=== PATIENT | female | born 1940 | race Caucasian/White ===

== ENCOUNTER 2022-10-15 01:39 | Outpatient (REF) | payer MEDICARE, SELFPAY ==
[2022-10-15 09:16] LABS: Bilirubin Urine NEGATIVE (NEGATIVE); Blood Urine NEGATIVE (NEGATIVE); Clarity Urine CLEAR (CLEAR); Color Urine YELLOW (YELLOW); Glucose Urine UA NEGATIVE (NEGATIVE); Ketones Urine NEGATIVE (NEGATIVE); Leukocyte Esterase Urine NEGATIVE (NEGATIVE); Nitrite Urine NEGATIVE (NEGATIVE); Protein Urine NEGATIVE (NEG/TRACE); Urobilinogen Urine 0.2 EU/dL (0.2-1.0); pH Urine 5.5 (5.0-9.0)
[2022-10-15 09:34] LABS: Bacteria Urine NONE SEEN #/HPF (NONE SEEN); Mucus Urine NONE SEEN (NONE SEEN); RBC Urine NONE SEEN #/HPF (0-2); Squamous Epithelial Cell Urine FEW #/LPF (NONE/RARE); WBC Urine NONE SEEN #/HPF (NONE SEEN)
[2022-10-15 09:35] LABS: Calcium Oxalate Crystals Urine MANY; Crystals Seen? Seen #/HPF (None Seen)
== END 2022-10-15 01:40 | disposition home or self-care (01) ==
LOC: LAB 01:39
PROVIDERS: PCP Internal Medicine; Visit Provider Internal Medicine
DX: N39.0 Urinary tract infection, site not specified (principal)
CPT/HCPCS: 81001

== ENCOUNTER 2022-12-29 01:36 | Outpatient (REF) | payer MEDICARE, SELFPAY ==
[2022-12-29 10:09] LABS: Basophils Percent Auto 0.5 % (0.2-2.0); Eosinophils Absolute Auto 0.3 10^3/uL (0.0-0.7); Eosinophils Percent Auto 5.8 % (0.9-7.0); Hematocrit 37.9 % (36.0-48.0); Hemoglobin 11.3 g/dL (12.0-16.0); Immature Granulocytes Abs Auto 0.01 10^3/uL (0.00-0.03); Immature Granulocytes Pct Auto 0.2 % (0.0-0.5); Lymphocytes Percent Auto 34.3 % (20.5-60.0); Mean Corpuscular HGB Conc 29.8 g/dL (29.9-35.2); Mean Corpuscular Hemoglobin 28.5 pg (26.7-34.0); Mean Corpuscular Volume 95.7 fL (81.0-99.0); Mean Platelet Volume 10.1 fL (9.5-13.5); Monocytes Absolute Auto 0.6 10^3/uL (0.3-0.8); Monocytes Percent Auto 9.7 % (1.7-12.0); Neutrophils Absolute Auto 2.9 10^3/uL (1.4-6.5); Neutrophils Percent Auto 49.5 % (43.0-75.0); Platelet Count 205 10^3/uL (150-450); Red Blood Count 3.96 10^6/uL (4.20-5.40); Red Cell Distribution Width 15.7 % (11.0-15.0); White Blood Count 5.9 10^3/uL (4.0-11.0)
[2022-12-29 10:51] LABS: Cholesterol 149 mg/dL (<=200); HDL Cholesterol 74 mg/dL (40-60); Thyroid Stimulating Hormone 0.432 uIU/mL (0.358-3.740); Triglycerides 45 mg/dL (<=150)
[2022-12-29 10:51] LABS: Creatinine Urine Random 76.15 mg/dL (20.00-300.00); Microalbum Creatinine Ratio Ur 28.8 mg/g (0.0-29.9); Microalbumin Urine Random 2.2 mg/dL (<=30.0)
[2022-12-29 11:58] LABS: Estimated Average Glucose 146 mg/dL; Glycohemoglobin A1C 6.7 % (4.5-6.2)
== END 2022-12-29 01:37 | disposition home or self-care (01) ==
LOC: LAB 01:36
PROVIDERS: PCP Internal Medicine; Visit Provider Internal Medicine
DX: E03.9 Hypothyroidism, unspecified (principal); N39.0 Urinary tract infection, site not specified; I25.10 Atherosclerotic heart disease of native coronary artery without angina pectoris; R79.89 Other specified abnormal findings of blood chemistry; E11.69 Type 2 diabetes mellitus with other specified complication
CPT/HCPCS: 36415; 80061; 82043; 82172; 82570; 82607; 83036; 84443; 85025

== ENCOUNTER 2023-03-21 03:16 | Outpatient (REF) | payer MEDICARE, SELFPAY ==
--- OUTSIDE RECORDS SUMMARY | 2023-03-21 03:23 | XMS_ITS | CCD ---
Author Name Unknown Address [address] [place] [address] Organization [facility] Care Team Providers Care Pharmaceutical Service Representative Name Role Phone Honey Rabago Primary Care Provider [phone] Honey Rabago Attending Provider Anu Alva Unavailable Honey Rabago DO Primary Care Provider Honey Rabago DO Primary Care Provider Oswaldo Almonte Unavailable DO Honey Rabago Primary Care Provider [phone] DO Sumanth Lowe Emergency Provider [phone] DO Holger Dorado Emergency Provider DO Honey Rabago Attending Provider [phone] DO Marvin Peter Emergency Provider MD Enrrique Mota Admit Provider [phone] MD Jairo Benson Other Provider [phone] MD Oswaldo Almonte Other Provider MD Gaye Claire Attending Provider MD Alcides Moya Admit Provider MD Alcides Moya Attending Provider [phone] KORTNEY Mehta Other Provider Unavailable KORTNEY Hannah Other Provider Unavailable KORTNEY Dutton Other Provider Unavailable KORTNEY Garrett Other Provider Unavailable KORTNEY Smith Other Provider Unavailable KORTNEY Ayon Other Provider Unavailable MD Familia Villatoro Other Provider MD Misha Ziegler Other Provider HEIDI Coronado M Other Provider DO José Miguel Tellez Other Provider MD George Chan Other Provider DO Justice De Oliveira Other Provider MD Enrrique Mota Other Provider MD Rosa Maria Odell Other Provider Angeli, ANP-BC Tonya Other Provider MD Juan Wallace Other Provider MD Jerson Walker Other Provider MD Gaye Claire Other Provider MD Queta Mclain Other Provider MD Rd Blackmon Other Provider MD Anibal Gallagher Other Provider MD Damion Thapa Other Provider Cortney, INFO ANALYST-C Faustina Quiroga Other Provider MD Valente Lauren Other Provider MD Mikhail Kareem Other Provider MD Italia Colbert Other Provider MD Ronan Davidson Other Provider DO Shantel Nayak Other Provider Al MD Kaylie Ly Other Provider DO Michael Del Rio Other Provider DO Sony Canela Other Provider HEIDI Jaimes Other Provider DO Lázaro Pratt Other Provider MD Corona Weathers Other Provider KORTNEY Terry Other Provider Unavailable DO Honey Rabago Primary Care Provider DO Marvin Peter Emergency Provider MD Enrrique Mota Admit Provider [phone] MD Jairo Benson Other Provider MD Oswaldo Almonte Other Provider MD Gaye Claire Attending Provider MD Alcides Moya Admit Provider MD Alcides Moya Attending Provider KORTNEY Mehta Other Provider Unavailable KORTNEY Hannah Other Provider Unavailable KORTNEY Dutton Other Provider Unavailable KORTNEY Garrett Other Provider Unavailable KORTNEY Smith Other Provider Unavailable KORTNEY Ayon Other Provider Unavailable MD Familia Villatoro Other Provider MD Misha Ziegler Other Provider Dials, PANMAN Chery M Other Provider [phone] DO José Miguel Tellez Other Provider MD George Chan Other Provider DO Justice De Oliveira Other Provider MD Enrrique Mota Other Provider MD Rosa Maria Odell Other Provider Angeli ANP-BC Tonya Other Provider [phone] MD Juan Wallace Other Provider [phone] MD Jerson Walker Other Provider MD Gaye Claire Other Provider MD Queta Mclain Other Provider MD Rd Blackmon Other Provider MD Anibal Gallagher Other Provider MD Damion Thapa Other Provider KAYODE Barr Other Provider [phone] MD Valente Lauren Other Provider MD Kareem Elizondo Other Provider MD Italia Colbert Other Provider MD Ronan Davidson Other Provider DO Shantel Nayak Other Provider Al MD Kaylie Ly Other Provider DO Michael Del Rio Other Provider DO Sony Canela Other Provider HEIDI Jaimes Other Provider DO Lázaro Pratt Other Provider MD Corona Weathers Other Provider KORTNEY Terry Other Provider Unavailable DO Honey Rabago Attending Provider [phone] Honey Rabago DO Primary Care Provider DO Honey Rabago Primary Care Provider DO Honey Rabago Attending Provider Honey Rabago Attending Unavailable Honey Rabago Admitting Unavailable Honey Rabago Primary Care Unavailable Honey Rabago Primary Care Unavailable Jairo Benson Consulting Unavailable Gaye Claire Attending Unavailable Enrrique Mota Admitting Unavailable Oswaldo Almonte Consulting Unavailable Alcides Moya Admitting Unavailable Alcides Moya Attending Unavailable Honey Rabago Primary Care Unavailable Maggy Mehta Consulting Unavailable Sasha Hannah Consulting Unavailable Nadia Dutton Consulting Unavailable Anuradha Garrett Consulting Unavailable Karen Smith Consulting Unavailable Erika Ayon Consulting Unavailable MassFamilia cole Consulting Unavailable Toney, Misha K Consulting Unavailable Dialchyna Chery M Consulting Unavailable José Miguel Tellez Consulting Unavailable Rocio, George Consulting Unavailable Justice De Oliveira Consulting UnavailEnrrique Her Consulting Unavailable Semagómez, Rosa Maria Consulting Unavailable Tonya Suh Consulting Unavailable Juan Wallace Consulting Unavailable Jerson Walker Consulting Unavailable Gaye Claire Consulting Unavailable Queta Mclain Consulting Unavailable Rd Blackmon Consulting Unavailable Anibal Gallagher Consulting Unavailable Damion Thapa Consulting Unavailable Faustina Barr Consulting Unavailable DoValente colindres Consulting Unavailab Kareem Estrella Consulting Unavailable Italia Colbert Consulting Unavailable Lety Ronan Consulting Unavailable Shantel Nayak Consulting Unavailable Kaylie Guthrie Consulting Unavailab Michael Hearn Consulting Unavailable MiniaciSony Consulting Unavailable ObikaAmanda Consulting Unavailable Lázaro Pratt Consulting Unavailable DaromarCorona Consulting Unavailable Lee Ann Terry Consulting Unavailable Holger Dorado Admitting Unavailable Vaschak, Honey Primary Care Unavailable Holger Dorado Attending Unavailable Sumanth Lowe Admitting Unavailable Vaschak, Honey Primary Care Unavailable Sumanth Lowe Attending Unavailable Vaschak, Honey Primary Care Unavailable Vaschak, Honey Attending Unavailable Vaschak, Honey Admitting Unavailable Vaschak, Honey Attending Unavailable Vaschak, Honey Admitting Unavailable Vaschak, Honey Primary Care Unavailable VASCHAK, DR MÉNDEZ Admitting Unavailable VASCHAK, DR MÉNDEZ Attending Unavailable VASCHAK, DR MÉNDEZ Consulting Unavailable VASCHAK, DR MÉNDEZ Admitting Unavailable VASCHAK, DR MÉNDEZ Attending Unavailable VASCHAK, DR MÉNDEZ Consulting Unavailable VASCHAK, DR MÉNDEZ Consulting Unavailable VASCHAK, DR MÉNDEZ Admitting Unavailable VASCHAK, DR MÉNDEZ Attending Unavailable VASCHAK, DR MÉNDEZ Attending Unavailable VASCHAK, DR MÉNDEZ Consulting Unavailable VASCHAK, DR MÉNDEZ Admitting Unavailable VASCHAK, DR MÉNDEZ Attending Unavailable VASCHAK, DR MÉNDEZ Consulting Unavailable VASCHAK, DR MÉNDEZ Admitting Unavailable VASCHAK, DR MÉNDEZ Attending Unavailable VASCHAK, DR MÉNDEZ Consulting Unavailable VASCHAK, DR MÉNDEZ Admitting Unavailable VASCHAK, DR MÉNDEZ Admitting Unavailable VASCHAK, DR MÉNDEZ Attending Unavailable VASCHAK, DR MÉNDEZ Consulting Unavailable VASCHAK, DR MÉNDEZ Attending Unavailable VASCHAK, DR MÉNDEZ Admitting Unavailable VASCHAK, DR MÉNDEZ Consulting Unavailable URBANO BENNETT Attending Unavailable HONEY RABAGO Primary Care Unavailab GLORIA Villeda Referring Unavailable GLORIA PEREZ Attending Unavailable HONEY RABAGO Primary Care Unavailab GLORIA Villeda Attending Unavailable Allergies Allergy Classification Reported Allergen(s) Allergy Type Date of Onset Reaction(s) Facility Aminoketones (1 source) buPROPion Drug Allergy 08-01-[address] [facility] Latex (1 source) Latex Substance Allergy 08-01-[address] [facility] Opioid Agonists (1 source) HYDROcodone Drug Allergy 08-01-19 Unknown Reaction [facility] (20 sources) Acetaminophen / HYDROcodone; Translations: [Vicodin] Drug Allergy Unknown [facility] (20 sources) buPROPion; Translations: [BUPROPION] Drug Allergy 01-19-20 Mental Status Change [facility] Work Phone: (20 sources) Latex Propensity to adverse reactions 11-05-19 Unknown, Rash [facility] (10 sources) Acetaminophen / HYDROcodone; Translations: [HYDROCODONE-ACET AMINOPHEN] Drug Allergy 04-13-19 Mental Status Change [facility] (10 sources) Adhesive Tape; Translations: [ADHESIVE TAPE (ROSINS)] Allergy to substance 01-13-20 [facility] Work Phone: (10 sources) Latex; Translations: [LATEX, NATURAL RUBBER] Drug Allergy 04-13-19 [facility] (10 sources) rosuvastatin; Translations: [ROSUVASTATIN CALCIUM] Drug Allergy 01-13-20 Unknown [facility] Work Phone: (6 sources) HYDROcodone; Translations: [hydrocodone] Drug Allergy 11-05-19 Unknown Reaction [facility] (1 source) buPROPion Drug Allergy 11-05-19 [facility] (1 source) Latex Drug allergy (disorder) 11-05-19 [facility] (1 source) natural latex rubber Drug allergy (disorder) [facility] Medications Current Medications Medication Drug Class(es) Dates Sig (Normalized) Sig (Original) acetaminophen 500 mg oral tablet (20 sources) Start: 11-11-2021 End: 11-25-2021 take 1000 mg by mouth three times daily Acetaminophen Active 1000 MG PO Three times daily November 23, 2021 11:00pm Start: 11-11-2021 take 1000 mg by mout h three times daily Acetaminophen Active 1000 MG PO Three times daily November 11, 2021 1:48pm Start: 11-11-2021 take 1000 mg by mout h three times daily Acetaminophen Active 1000 MG PO Three times daily November 11, 2021 1:48pm Start: 11-10-2021 End: 11-11-2021 take 1000 mg by mouth three times daily Acetaminophen Discontinued 1000 MG PO Three times daily 0 November 09, 2021 11:00pm November 11, 2021 12:48pm Start: 11-04-2021 End: 11-11-2021 take 650 mg by mouth three times daily Acetaminophen Discontinued 650 MG PO Three times daily November 03, 2021 11:00pm November 11, 2021 11:27am take 1 tablet by rc th every eight hours as needed acetaminophen (TYLENOL) 500 mg tablet Take 500 mg by mouth every 8 hours as needed. 01/18/2023: Pt takes 2 tabs daily per [facility] list 0 Active take 1 tablet by rc th every six hours as needed Acetaminophen 500 MG 1 tablet as needed Orally every 6 hrs Active Comment on above: Take 500 mg by mouth every 8 hours as needed. 01/18/2023: Pt takes 2 tabs daily per [facility] Aspir-81 (16 sources) Aspir-81 Active atorvastatin 40 mg oral tablet (20 sources) HMG-CoA Reductase Inhibitor Start: 11-04-2021 End: 11-25-2021 take 40 mg by mouth once daily at bedtime Atorvastatin Active 40 MG PO Daily at bedtime November 23, 2021 11:00pm Start: 11-04-2021 take 40 mg by mouth once daily at bedtime Atorvastatin Active 40 MG PO Daily at bedtime November 04, 2021 12:00am Start: 04-22-2020 End: 09-29-2021 take 1 tablet by mouth once daily atorvastatin (LIPITOR) 40 mg tablet TAKE 1 TABLET BY MOUTH ONCE DAILY FOR 90 DAYS 0 04/22/2020 09/29/2021 Discontinued Comment on above: Take 40 mg by mouth once daily. TAKE 1 TABLET BY RC TH ONCE DAILY FOR 90 DAYS cholecalciferol 0.125 mg oral capsule (20 sources) Vitamin D Start: take 125 ug by mouth once daily Cholecalciferol (Vitamin D3) Active 125 MCG PO Daily November 23, 2021 11:00pm Start: 11-04-2021 End: 11-25-2021 take 1 tablet by mouth once daily in the morning Cholecalciferol (Vitamin D3) (Vitamin D3) 125 mcg (5,000 unit) Tablet Discontinued 125 MCG PO Every morning November 03, 2021 11:00pm November 25, 2021 3:32pm Start: 11-04-2021 take 1 tablet by rc once daily in the morning Cholecalciferol (Vitamin D3) (Vitamin D3) 125 mcg (5,000 unit) Tablet Active 125 MCG PO Every morning November 04, 2021 12:00am cholecalciferol (VITAMIN D3) 5,000 unit tab Take by mouth once daily. 0 Active take 1 capsule by [facility] once daily Cholecalciferol 125 MCG (5000 UT) 1 capsule Orally Once a day Active Cholecalciferol, Vitamin D3, 1,000 unit cap Take by mouth once daily. 0 Active Comment on above: Take by mouth once d aily. lidocaine 0.04 mg/mg medicated patch (16 sources) Antiarrhythmic, Amide Local Anesthetic Start: 11-11-2021 End: 11-25-2021 apply 1 dose topically once daily in the morning Lidocaine (Lidocaine Pain Relief) 4 % Adhesive Patch,Medicated Active 1 PATCH TOPICAL Every morning November 23, 2021 11:00pm Start: 11-11-2021 apply 1 dose topical ly once daily in the morning Lidocaine (Lidocaine Pain Relief) 4 % adhesive patch,medicated Active 1 PATCH TOPICAL Every morning November 11, 2021 1:51pm Start: 11-11-2021 apply 1 dose topical ly once daily in the morning Lidocaine (Lidocaine Pain Relief) 4 % adhesive patch,medicated Active 1 PATCH TOPICAL Every morning November 11, 2021 1:51pm Start: 11-10-2021 End: 11-11-2021 apply 1 dose topically once daily Lidocaine (Lidocaine Pain Relief) 4 % Adhesive Patch,Medicated Discontinued 1 PATCH TOPICAL Daily 0 November 09, 2021 11:00pm November 11, 2021 12:51pm oxyCODONE hydrochloride 5 mg oral tablet (13 sources) Opioid Agonist Start: 11-10-2021 End: 11-25-2021 take 5 mg by mouth every six hours Oxycodone Active 5 MG PO Every 6 hours 10 November 24, 2021 Start: 11-10-2021 take 5 mg by mouth e very six hours Oxycodone Active 5 MG PO Every 6 hours 0 November 10, 2021 Start: 11-10-2021 take 5 mg by mouth e very six hours Oxycodone Active 5 MG PO Every 6 hours 0 November 10, 2021 Start: 10-19-2021 End: 11-04-2021 take 1 tablet by mouth three times daily Oxycodone (Roxicodone) 5 mg tablet Discontinued 5 MG PO Three times daily 7 October 19, 2021 November 04, 2021 5:03pm polyethylene glycol 3350 55003 mg powder for oral solution (15 sources) Osmotic Laxative Start: 11-10-2021 End: 11-25-2021 Polyethylene Glycol 3350 (Miralax) 17 gram Powder In Packet Active 17 GM PO Twice daily 04 12November 23, 2021 11:00pm Start: 11-10-2021 Polyethylene G lycol 3350 (Miralax) 17 gram Powder In Packet Active 17 GM PO Twice daily 0 November 10, 2021 12:00am Start: 11-10-2021 Polyethylene G lycol 3350 (Miralax) 17 gram Powder In Packet Active 17 GM PO Twice daily 0 November 10, 2021 12:00am End: 02-15-2022 polyethylene glycol 3350 17 gram packet Take 17 g by mouth once daily. Dissolve dose in 4 - 8 ounces of liquid and take as directed. 0 Active Comment on above: Take 17 g by mouth o nce daily. Take 17 g by mouth o nce daily. Dissolve dose in 4 - 8 ounces of liquid and take as directed. Polyethylene Glycol 3350 17 Grams (20 sources) Start: 01-10-2017 Polyethylene Glycol 3350 17 Grams as directed Orally Twice a day for 1 days Dec, Active Start: 01-10-2017 Polyethylene G lycol 3350 17 Grams as directed Orally Once a day for 1 days Dec, Not-Taking Start: 01-10-2017 Start: 01-10-2017 take 119 g by mouth twice daily Polyethylene Glycol 3350 17 Grams take 119 grams into each gatorade/pedilyte bottle Orally bid for 1 days Dec, Active PreserVision/Lutein (16 sources) PreserVision/Lut ein as directed Orally Active Vitamin B12 1000 MCG (5 sources) take 1 tablet by rc th once daily Vitamin B12 1000 MCG 1 tablet Orally Once a day Active Vitamin D 2000 UNIT (16 sources) take 1 tablet by mouth once gautam y Vitamin D 2000 UNIT 1 tablet Orally Once a day Active Vitamin D 25 MCG (1000 UT) (2 sources) take 1 tablet by rc th once daily Vitamin D 25 MCG (1000 UT) 1 tablet Orally Once a day Active Completed/Discontinued Medications Medication Drug Class(es) Dates Sig (Normalized) Sig (Original) ascorbic acid 226 mg / cuprous oxide 0.8 mg / dl-alpha tocopheryl acetate 200 unt / lutein 5 mg / zinc oxide 34.8 mg oral capsule (8 sources) Vitamin C Start: 02-22-2017 End: 07-10-2017 Vit J-O-Wfookb-Zinc-Lute in (Preservision Lutein) 226 mg-200 unit -5 mg-0.8 mg Capsule Discontinued 1 TAB PO As Directed February 22, 2017 12:00am July 10, 2017 5:45pm take 2 capsules by m out every twenty-four hours PreserVision/Lutein - 2 capsules Orally daily Active aspirin 81 mg delayed release oral tablet (7 sources) Platelet Aggregation Inhibitor, Nonsteroidal Anti-inflammatory Drug Start: 01-18-2017 End: 11-04-2021 take 1 tablet by mouth once daily Aspirin (Aspir-81) 81 mg Tablet,Delayed Release (Dr/Ec) Discontinued 81 MG PO Daily January 18, 2017 12:00am November 04, 2021 4:58pm Comment on above: Take 81 mg by mouth once daily. biotin 1 mg chewable tablet (20 sources) Start: 01-18-2017 End: 11-04-2021 take 1000 ug by mouth once daily Biotin Discontinued 1000 MCG PO Daily January 18, 2017 12:00am November 04, 2021 4:59pm take 1 tablet by rc th once daily Biotin 10 MG 1 tablet Orally Once a day for 30 day(s) Not-Taking End: 09-29-2021 take 5 mg by mouth once daily biotin 5 mg caspule Take 5 mg by mouth once daily. 0 09/29/2021 Discontinued Comment on above: Take 5 mg by mouth o nce daily. carbidopa 25 mg / levodopa 100 mg oral tablet (20 sources) Aromatic Amino Acid Decarboxylation Inhibitor, Aromatic Amino Acid Start: 11-05-19 End: 04-13-19 take 1.5 tablets by mouth three times daily carbidopa-levodopa (SINEMET 25-100) 25-100 mg per tablet Indications: Parkinson's disease Take 1.5 tablets by mouth three times daily. 405 tablet 3 04/13/2022 02/11/2023 Discontinued Start: 11-04-2021 take 1.5 tablets by mouth three times daily Carbidopa-Levodopa Active 1.5 TAB PO Three times daily November 04, 2021 12:00am Start: 02-03-2021 End: 04-13-2022 take 1.5 tablets by mouth three times daily carbidopa-levodopa (SINEMET 25-100) 25-100 mg per tablet Indications: Parkinson's disease (HCC) Take 1.5 tablets by mouth three times daily. 405 tablet 3 02/03/2021 04/13/2022 Discontinued take 1 tablet by rc th every eight hours Sinemet 10-100 MG 1 tablet Orally Three times a day Active take 1 tablet by rc th every eight hours Comment on above: Take 1.5 tablets by mouth three times daily. cefdinir 300 mg oral capsule (5 sources) Cephalosporin Antibacterial Start: End: take 300 mg by mouth twice daily Cefdinir Discontinued 300 MG PO Twice daily 4 2 November 10, 2021 11:00pm November 25, 2021 3:31pm Start: 11-11-2021 take 300 mg by mouth twice reymundo ly Cefdinir Active 300 MG PO Twice daily 4 November 11, 2021 12:00am Start: 11-11-2021 take 300 mg by mouth twice reymundo ly Cefdinir Active 300 MG PO Twice daily 4 November 11, 2021 12:00am cephalexin 500 mg oral capsule (9 sources) Cephalosporin Antibacterial Start: 09-28-2021 End: 11-04-2021 take 500 mg by mouth every eight hours Cephalexin Discontinued 500 MG PO Q8H 21 September 27, 2021 11:00pm November 04, 2021 5:00pm End: 02-15-2022 cephALEXin (KEFLEX) 500 mg c apsule Take 500 mg by mouth. 1 cap x2 daily for 5 days 0 02/15/2022 Discontinued (Course of therapy completed) Comment on above: Take 500 mg by mouth . 1 cap x2 daily for 5 days cyclobenzaprine hydrochloride 5 mg oral tablet (10 sources) Muscle Relaxant Start: 10-20-19 End: 11-05-19 take 5 mg by mouth three times daily Cyclobenzaprine Discontinued 5 MG PO Three times daily October 18, 2021 11:00pm November 04, 2021 5:00pm take 1 tablet by mouth every twe nty-four hours diclofenac sodium 0.01 mg/mg topical gel (9 sources) Nonsteroidal Anti-inflammatory Drug Start: 05-08-2022 diclofenac (VOLTAREN) 1 % topical gel End: 01-20-2023 diclofenac sodium 10% topica l gel (CPD) Apply to affected area. 0 01/20/2023 Discontinued diclofenac sodiu m 10% topical gel (CPD) Apply to affected area. 0 Active End: 02-15-2022 DICLOFENAC SODIUM TOPICAL Ap ply to affected area as needed. 0 02/15/2022 Discontinued (Course of therapy completed) DICLOFENAC SODIU M TOPICAL Apply to affected area as needed. 0 Active Comment on above: Apply to affected ar ea as needed. Apply to affected ar ea. docusate sodium 50 mg / sennosides, nursing home 8.6 mg oral tablet (5 sources) Start: 11-10-2021 End: 11-25-2021 take 2 tablets by mouth twice daily Sennosides-Docusate Sodium (Stool Softener-Stimulant Laxat) 8.6-50 mg Tablet Discontinued 2 TAB PO Twice daily 0 November 09, 2021 11:00pm November 25, 2021 3:31pm Start: 11-10-2021 take 2 tablets by mo [facility] twice daily Sennosides-Docusate Sodium (Stool Softener-Stimulant Laxat) 8.6-50 mg Tablet Active 2 TAB PO Twice daily 0 November 10, 2021 12:00am Start: 11-10-2021 take 2 tablets by mo neh twice daily Sennosides-Docusate Sodium (Stool Softener-Stimulant Laxat) 8.6-50 mg Tablet Active 2 TAB PO Twice daily 0 November 10, 2021 12:00am estradiol 0.1 mg/ml vaginal cream (2 sources) Estrogen estradiol (ESTRA CE) 0.01 % (0.1 mg/gram) vaginal cream Use vaginally one time a week. 0 Active Comment on above: Use vaginally one ti me a week. ezetimibe 10 mg oral tablet (20 sources) Dietary Cholesterol Absorption Inhibitor Start: 02-23-20 17 End: 07-11-19 18 take 1 tablet by mouth once daily Ezetimibe (Zetia) 10 mg Tablet Discontinued 10 MG PO Daily February 22, 2017 12:00am July 10, 2017 5:44pm fluocinolone acetonide 0.1 mg/ml topical oil (3 sources) Corticosteroid Fluocinolone-Elissa wer Cap 0.01 % oil by scalp route. 0 Active Comment on above: by scalp route. FREESTYLE VIVIAN 2 SENSOR kit (6 sources) Start: 01-26-20 FREESTYLE VIVIAN 2 SENSOR kit apply 1 SENSOR to back OF UPPER ARM REMOVE AND REPLACE every 14 days 0 01/25/2022 Active Comment on above: apply 1 SENSOR to ba ck OF UPPER ARM REMOVE AND REPLACE every 14 days furosemide 20 mg oral tablet (20 sources) Loop Diuretic Start: 03-01-20 End: 02-16-20 take 1 tablet by mouth once daily furosemide (LASIX) 20 mg tablet Take 1 tablet by mouth once daily. 0 03/01/2019 02/15/2022 Discontinued (Discontinued by another Health Care Provider) Furosemide Activ e Comment on above: [facility]. gabapentin 300 mg oral capsule (7 sources) Anti-epileptic Agent Start: 01-26-2022 End: 01-20-2023 take 1 capsule by mouth once daily at bedtime gabapentin (NEURONTIN) 300 mg capsule Take 300 mg by mouth daily at bedtime. 0 01/26/2022 01/20/2023 Discontinued (Course of therapy completed) take 1 capsule by mo [facility] every twenty-four hours Gabapentin 300 MG 1 capsule Orally Once a day Active Comment on above: Take 300 mg by mouth daily at bedtime. ketoconazole 20 mg/ml medicated shampoo (7 sources) Azole Antifungal End: 02-15-2022 ketoconazole (NIZORAL) 2 % shampoo Apply to affected area two times a week. 0 Active Comment on above: Apply 1 application to affected area as directed. Apply to affected ar ea two times a week. Lactobacillus acidophilus (4 sources) End: 02-15-2022 Lactobacillus acidophilus (PROBIOTIC ORAL) Take by mouth. 0 02/15/2022 Discontinued (Course of therapy completed) Lactobacillus ac idophilus (PROBIOTIC ORAL) Take by mouth. 0 Active Comment on above: Take by mouth. levothyroxine sodium 0.075 mg oral tablet (20 sources) l-Thyroxine Start: 01-18-2017 End: 11-25-2021 levothyroxine (SYNTHROID) 75 mcg tablet once daily. 0 12/29/2017 Active Synthroid 75 MCG 1 tablet every morning on an empty stomach Orally Once a day for 30 day(s) Active Comment on above: once daily. MEDICATION, NON-DATABASE (2 sources) MEDICATION, NON-DATABASE 750 mg two times a day. Antiacid extra strength 0 Active Comment on above: 750 mg two times a d ay. Antiacid extra strength metFORMIN hydrochloride 500 mg oral tablet (20 sources) Biguanide Start: 02-12-2022 take 1 tablet by mouth once daily metFORMIN (GLUCOPHAGE) 500 mg tablet Take 1 tablet by mouth once daily. 0 02/12/2022 Active Start: 01-18-2017 take 50 mg by mouth twice gautam y Metformin Active 50 MG PO Twice daily January 18, 2017 7:43am Start: 01-18-2017 End: 11-25-2021 take 1000 mg by mouth twice daily at mealtime Metformin Active 1000 MG PO Twice daily with meals 120 30 November 23, 2021 11:00pm take 1 tablet by rc th every twelve hours metFORMIN HCl 500 MG 1 tablet with a meal Orally Twice a day Active take 2 tablets by mo [facility] every twelve hours metFORMIN HCl 500 MG 2 tablets Orally Twice a day Active Comment on above: Take 500 mg by mouth twice daily with meals. Pt takes 2,000 mg daily Take 1 tablet by rc th once daily. metoprolol tartrate 50 mg oral tablet (20 sources) beta-Adrenergic Migdalia Start: 01-13-2022 take 1 tablet by mouth twice daily at mealtime metoprolol tartrate, short acting, (LOPRESSOR) 50 mg tablet TAKE 1 & 1/2 (ONE & ONE-HALF) TABLETS BY MOUTH TWICE DAILY WITH FOOD 0 01/13/2022 Active Start: 11-24-2021 take 75 mg by mouth twice gautam y Metoprolol Tartrate Active 75 MG PO Twice daily 120 30 November 23, 2021 11:00pm Start: 01-18-2017 metoprolol tar trate, short acting, (LOPRESSOR) 50 mg tablet twice daily. 1.5 tablets 2x daily 0 01/05/2018 Active Start: 01-18-2017 End: 11-25-2021 take 75 mg by mouth twice daily Metoprolol Tartrate Di scontinued 75 MG PO Twice daily January 18, 2017 12:00am November 25, 2021 3:31pm take 1 tablet by rc th twice daily metoprolol tartrate, short acting, (LOPRESSOR) 25 mg tablet Take 25 mg by mouth twice daily. 0 Active take 2 tablets by mo uth every twelve hours Metoprolol Tartrate 37.5 MG 2 tablets Orally Twice a day increased for Essential Tremors Active take 1.5 tablets by mouth every twelve hours Metoprolol Tartrate 50 MG 1.5 tablets Orally Twice a day increased for Essential Tremors Active take 1 tablet by rc th twice daily in the evening Metoprolol Tartrate 100 MG in am/ 50mg in pm 1 tablet Orally Twice a day increased for Essential Tremors Active Comment on above: twice daily. 1.5 tab lets 2x daily TAKE 1 & 1/2 (ONE & ONE-HALF) TABLETS BY MOUTH TWICE DAILY WITH FOOD Take 25 mg by mouth twice daily. mirtazapine 7.5 mg oral tablet (17 sources) Start: 01-25-2022 take 1 tablet by mouth once daily at bedtime Mirtazapine (REMERON) 7.5 mg tablet Take 7.5 mg by mouth daily at bedtime. 0 01/25/2022 Active Start: 11-10-2021 End: 11-25-2021 take 1 tablet by mouth once daily at bedtime Mirtazapine (REMERON) 7.5 mg tablet Take 7.5 mg by mouth daily at bedtime. 0 01/25/2022 Active Start: 11-10-2021 take 7.5 mg by mouth once daily at bedtime Mirtazapine Active 7.5 MG PO Daily at bedtime 0 November 10, 2021 12:00am Start: 11-10-2021 take 7.5 mg by mouth once daily at bedtime Mirtazapine Active 7.5 MG PO Daily at bedtime 0 November 10, 2021 12:00am take 1 tablet by rc th every twenty-four hours Mirtazapine 7.5 MG 1 tablet at bedtime Orally Once a day Active Comment on above: Take 7.5 mg by mouth daily at bedtime. Nystatin (4 sources) Polyene Antifungal End: 02-15-2022 NYSTATIN ORAL Take by mouth. 0 02/15/2022 Discontinued (Course of therapy completed) NYSTATIN ORAL Ta ke by mouth. 0 Active Comment on above: Take by mouth. omeprazole 20 mg delayed release oral capsule (20 sources) Proton Pump Inhibitor Start: 02-08-2018 omeprazole (PRILOSEC) 20 mg capsule 20 mg once daily. 0 02/08/2018 Active Start: 01-18-2017 take 40 mg by mouth once daily Omeprazole Active 40 MG PO Daily January 18, 2017 7:43am Start: 01-18-2017 End: 11-25-2021 take 20 mg by mouth once daily in the morning Omeprazole Discontinued 20 MG PO Every morning January 18, 2017 12:00am November 25, 2021 3:31pm Comment on above: 20 mg once daily. microencapsulated potassium chloride 10 meq extended release oral tablet (4 sources) Start: 11-22-19 End: 02-16-20 potassium chloride ER (K-DUR, KLOR-CON) 10 mEq tablet Take 10 mEq by mouth. Pt takes every other day 0 11/21/2020 02/15/2022 Discontinued Comment on above: Take 10 mEq by mouth . Pt takes every other day pravastatin sodium 40 mg oral tablet (20 sources) HMG-CoA Reductase Inhibitor Start: 01-19-20 End: 11-05-19 take 40 mg by mouth once daily Pravastatin Discontinued 40 MG PO Daily January 18, 2017 12:00am November 04, 2021 5:12pm take 1 tablet by mouth once gautam y Pravastatin 10 mg one tab orally daily Active SITagliptin 100 mg oral tablet (20 sources) Dipeptidyl Peptidase 4 Inhibitor Start: 06-12-2022 JANUVIA 100 mg table t Take 50 mg by mouth once daily. 0 06/12/2022 Active End: 07-08-2022 take 1 tablet by mouth once daily SITagliptin phosphate (JANUVIA) 50 mg tablet Take 50 mg by mouth once daily. 0 07/08/2022 Discontinued take 1 tablet by rc th every twenty-four hours Comment on above: Take 100 mg by mouth once daily. Take 50 mg by mouth once daily. solifenacin succinate 5 mg oral tablet (20 sources) Cholinergic Muscarinic Antagonist Start: End: take 1 tablet by mouth once daily Solifenacin (Vesicare) 5 mg Tablet Discontinued 5 MG PO Daily February 22, 2017 12:00am November 04, 2021 5:12pm VESIcare 5 MG Or ally twice a day Active trospium chloride 20 mg oral tablet (6 sources) Cholinergic Muscarinic Antagonist Start: 07-10-2017 End: 11-04-2021 take 20 mg by mouth twice daily Trospium Discontinued 20 MG PO Twice daily July 09, 2017 11:00pm November 04, 2021 5:12pm venlafaxine 75 mg oral tablet (20 sources) Serotonin and Norepinephrine Reuptake Inhibitor Start: 01-10-2023 venlafaxine (EFFEXOR) 75 mg tablet Start: 01-10-2023 VENLAFAXINE ER 150 MG TABLET,EXTENDED RELEASE 24 HR Start: 01-20-2022 End: 01-20-2023 take 1 capsule by mouth every twenty-four hours venlafaxine ER (EFFEXOR XR) 75 mg 24 hr capsule Take 75 mg by mouth. 0 01/20/2022 01/20/2023 Discontinued Start: 11-24-2021 take 75 mg by mouth once daily in the evening Venlafaxine Active 75 MG PO Every evening November 23, 2021 11:00pm Start: 11-05-2021 End: 11-25-2021 take 150 mg by mouth once daily in the morning Venlafaxine Active 150 MG PO Every morning November 23, 2021 11:00pm Start: 11-05-2021 take 150 mg by mouth once daily in the morning Venlafaxine Active 150 MG PO Every morning November 05, 2021 12:00am Start: 11-05-2021 take 75 mg by mouth once daily in the evening Venlafaxine Active 75 MG PO Every evening November 05, 2021 12:00am Start: 11-05-2021 End: 11-05-2021 take 75 mg by mouth once daily Venlafaxine Discontinue d 75 MG PO Daily after supper November 04, 2021 11:00pm November 05, 2021 12:44pm Start: 11-05-2021 End: 11-25-2021 take 75 mg by mouth once daily in the evening Venlafaxine Discontinued 75 MG PO Every evening November 04, 2021 11:00pm November 25, 2021 3:31pm Start: 01-18-2017 take 75 mg by mouth twice daily Venlafaxine Active 75 MG PO Twice daily January 18, 2017 7:43am Start: 01-18-2017 End: 11-05-2021 take 150 mg by mouth once daily Venlafaxine Discontinued 150 MG PO Daily January 18, 2017 12:00am November 05, 2021 12:37pm End: 01-20-2023 venlafaxine ER (EFFEXOR XR) 150 mg 24 hr capsule 150 mg once daily. 0 01/20/2023 Discontinued take 1 tablet by rc th every twelve hours Venlafaxine HCl 25 MG 1 tablet with food Orally Twice a day Active take 1 tablet by rc th twice daily Effexor 50 MG 1 tablet Orally Twice a day for 30 day(s) Active Comment on above: 150 mg once daily. Take 75 mg by mouth once daily. Take 75 mg by mouth. Vit C,J-Vj-Iotdd-Lutei n-Zeaxan (Preservision Areds-2) [phone] im-towy-ky-mg Capsule (6 sources) Start: 01-18-2017 End: 07-10-2017 take 1 tablet by mouth once daily at bedtime Vit C,X-Rf-Iptmx-Lutein-Ze axan (Preservision Areds-2) [phone] ny-jvbk-ck-mg Capsule Discontinued 1 TAB PO every day in the morning and at bedtime January 18, 2017 7:43am July 10, 2017 6:45pm Start: 01-18-2017 End: 07-10-2017 take 1 tablet by mouth once daily at bedtime Vit C,M-Ai-Dmeqj-Lutein-Zeaxan (Preservision Areds-2) [phone] zw-llmt-ve-mg Capsule Discontinued 1 TAB PO every day in the morning and at bedtime January 18, 2017 12:00am July 10, 2017 5:45pm Start: 01-18-2017 End: 07-10-2017 take 1 tablet by mouth once daily at bedtime Vit C,B-Ud-Rksed-Lutein-Zeaxan (Preservision Areds-2) [phone] hz-glze-ym-mg Capsule Discontinued 1 TAB PO every day in the morning and at bedtime January 18, 2017 1:00am July 10, 2017 6:45pm Vit C,V-Gl-Bwykr-Lutein-Zeax an (Preservision Areds-2) 250-90-40-1 mg Capsule (5 sources) Start: 11-04-2021 End: 11-25-2021 Vit C,W-Cm-Omvce-Lutein-Zeax an (Preservision Areds-2) 250-90-40-1 mg Capsule Discontinued 1 TAB PO Twice daily November 03, 2021 11:00pm November 25, 2021 3:32pm Start: 11-04-2021 End: 11-25-2021 Vit C,T-Gz-Zudse-Lutein-Zeax an (Preservision Areds-2) 250-90-40-1 mg Capsule Discontinued 1 TAB PO Twice daily November 04, 2021 12:00am November 25, 2021 4:32pm Start: 11-04-2021 Vit C,E-Zn-Garment Presser uo-Itxwsf-Fzexdc (Preservision Areds-2) 250-90-40-1 mg Capsule Active 1 TAB PO Twice daily November 04, 2021 12:00am vit C/vit E ac/lut/copper/zinc (PRESERVISION LUTEIN ORAL) (9 sources) vit C/vit E ac/lut/copper/zinc (PRESERVISION LUTEIN ORAL) Take by mouth twice daily. 0 Active Comment on above: Take by mouth twice daily. vitamin b12 0.5 mg oral tablet (18 sources) Vitamin B12 Start: 022 take 2 tablets by mouth once daily cyanocobalamin (VITAMIN B-12) 500 mcg tablet Take 2 tablets by mouth once daily. 0 02/15/2022 Active Start: 11-24-2021 take 1000 ug by mout h once daily Cyanocobalamin (Vitamin B-12) Active 1000 MCG PO Daily November 23, 2021 11:00pm Start: 11-04-2021 End: 11-25-2021 take 1 tablet by mouth once daily Cyanocobalamin (Vitamin B-12) (Vitamin B-12) 2,000 mcg Tablet Extended Release Discontinued 2000 MCG PO Daily November 03, 2021 11:00pm November 25, 2021 3:32pm Start: 11-04-2021 take 1 tablet by rc th once daily Cyanocobalamin (Vitamin B-12) (Vitamin B-12) 2,000 mcg Tablet Extended Release Active 2000 MCG PO Daily November 04, 2021 12:00am Start: 11-06-2020 End: 02-15-2022 take 1 tablet by mouth once daily cyanocobalamin (VITAMIN B-12) 500 mcg tablet Take 1 tablet by mouth once daily. 0 11/06/2020 02/15/2022 Discontinued (Adjust Sig - Block E-Cancel) Comment on above: Take 1 tablet by rc th once daily. Take 2 tablets by mo [facility] once daily. warfarin sodium 4 mg oral tablet (20 sources) Vitamin K Antagonist Start: 06-15-2022 warfarin (COUMADIN) 4 mg tablet Start: 11-11-2021 End: 11-25-2021 take 1 tablet by mouth once Warfarin (Jantoven) 1 mg T ablet Discontinued 1 MG PO Once 0 November 10, 2021 11:00pm November 25, 2021 3:31pm Start: 11-11-2021 take 1 tablet by mouth once Wa rfarin (Jantoven) 1 mg Tablet Active 1 MG PO Once 0 November 11, 2021 12:00am Start: 11-11-2021 take 1 tablet by mouth once Wa rfarin (Jantoven) 1 mg Tablet Active 1 MG PO Once 0 November 11, 2021 12:00am Start: 01-18-2017 End: 11-24-2021 take 1 tablet by mouth once daily Warfarin Active 2 MG PO Daily 04 12November 24, 2021 1:28pm 1 tab daily on Mon, Tu, Wed, Tue, Sat, Sun 0.5 tab daily on Comment on above: 1 tablet once daily. Warfarin - Pharmacy Dosing (Coumadin Pharmacy Dosing) (5 sources) Start: 11-10-2021 End: 11-25-2021 Warfarin - Pharmacy Dosing (Coumadin Pharmacy Dosing) Discontinued 1 ea miscellaneous Once 0 November 09, 2021 11:00pm November 25, 2021 3:32pm Start: 11-10-2021 End: 11-25-2021 Warfarin - Pharmacy Dosing ( Coumadin Pharmacy Dosing) Discontinued 1 ea miscellaneous Once 0 November 10, 2021 12:00am November 25, 2021 4:32pm Start: 11-10-2021 Warfarin - Pha rmacy Dosing (Coumadin Pharmacy Dosing) Active 1 ea miscellaneous Once 0 November 10, 2021 12:00am Problems Active Problems Problem Classification Problem Date Documented Da te Episodic/Chronic Abdominal pain (20 sources) Abdominal pain; Translations: [Unspecified abdominal pain] 11-09-2021 Episodic Anxiety disorders (5 sources) Mixed anxiety and depressive disorder; Translations: [Other specified anxiety disorders] Onset: 01-20-2023 Chronic Deficiency and other anemia (3 sources) Anemia; Translations: [Anemia, unspecified] 11-19-2021 Episodic Diabetes mellitus without complication (10 sources) Diabetes mellitus; Translations: [Type 2 diabetes mellitus without complications] Onset: 11-11-2021 11-09-2021 Chronic Disorders of lipid metabolism (10 sources) Hyperlipidemia; Translations: [Hyperlipidemia, unspecified] Onset: 11-11-2021 11-09-2021 Chronic E Codes: Fall (5 sources) Fall; Translations: [Unspecified fall, initial encounter] 11-12-2021 Episodic Esophageal disorders (20 sources) Esophageal dysmotility; Translations: [Dyskinesia of esophagus] Onset: 11-11-2021 11-09-2021 Chronic Essential hypertension (10 sources) Hypertensive disorder; Translations: [Essential (primary) hypertension] Onset: 11-11-2021 11-09-2021 Chronic Genitourinary symptoms and ill-defined conditions (4 sources) Frequency of micturition; Translations: [FREQUENCY OF MICTURITION] Onset: 06-01-2022 Episodic Hemorrhoids (20 sources) Hemorrhoids; Translations: [Unspecified hemorrhoids] Episodic Mood disorders (13 sources) Depressive disorder; Translations: [Depression] 11-09-2021 Chronic Mood disorders (1 source) Mood disorders; Translations: [Depression, unspecified] Onset: 11-04-2021 Osteoarthritis (9 sources) Osteoarthritis; Translations: [Osteoarthrosis, unspecified whether generalized or localized, lower leg] Onset: 06-29-2012 06-29-2012 Chronic Osteoporosis (1 source) Age-related osteoporosis without current pathological fracture; Translations: [Age-related osteoporosis without current pathological fracture] Onset: 05-20-2022 Chronic Other aftercare (5 sources) Long-term current use of anticoagulant; Translations: [FPC (current) use of anticoagulants] 11-09-2021 Episodic Other connective tissue disease (5 sources) Recurrent falls ; Translations: [Repeated falls] 11-05-2021 Episodic Other fractures (13 sources) Compression fracture ; Translations: [Compression fracture] 11-09-2021 Episodic Other gastrointestinal disorders (20 sources) Dysphagia; Translations: [Dysphagia, unspecified] 11-09-2021 Episodic Other gastrointestinal disorders (1 source) Dysphagia, unspecified; Translations: [Dysphagia] Episodic Other injuries and conditions due to external causes (6 sources) Contusion; Translations: [Other injury of unspecified body region, initial encounter] 11-09-2021 Episodic Other nervous system disorders (1 source) Unresponsive ; Translations: [Other symptoms and signs involving cognitive functions and awareness] Episodic Other nutritional; endocrine; and metabolic disorders (20 sources) Body mass index 40+ - severely obese; Translations: [Body mass index (BMI) 40.0-44.9, adult] Chronic Other nutritional; endocrine; and metabolic disorders (3 sources) Obese class I; Translations: [Obesity, unspecified] Onset: 07-08-2022 07-08-2022 Chronic Parkinson`s disease (20 sources) Parkinson's disease; Translations: [Parkinson's disease] Onset: 03-02-2018 Chronic Residual codes; unclassified (1 source) Daytime somnolence; Translations: [Other hypersomnia] Chronic Residual codes; unclassified (4 sources) Obstructive sleep apnea (adult) (pediatric); Translations: [OBSTRUCTIVE SLEEP APNEA] Onset: 02-02-2022 Chronic Residual codes; unclassified (4 sources) Sleep apnea, unspecified; Translations: [SLEEP APNEA UNSPECIFIED] Onset: 12-29-2021 Chronic Residual codes; unclassified (4 sources) Altered mental status, unspecified; Translations: [ALTERED MENTAL STATUS UNSPECIFIED] Onset: 07-14-2022 Episodic Thyroid disorders (10 sources) Hypothyroidism; Translations: [Hypothyroidism, unspecified] Onset: 11-11-2021 11-09-2021 Chronic Unclassified (1 source) Wedge compression fracture of first lumbar vertebra, initial encounter for closed fracture; Translations: [Wedge compression fracture of first lumbar vertebra, initial encounter for closed fracture] Onset: 11-11-2021 Urinary tract infections (1 source) Urinary tract infections; Translations: [Urinary tract infection, site not specified] Onset: 12-30-2021 Past or Other Problems Problem Classification Problem Date Documented Da te Episodic/Chronic Administrative/social admission (20 sources) Worried well; Translations: [Person with feared health complaint in whom no diagnosis is made] Onset: 11-04-2021 11-05-2021 Episodic Deficiency and other anemia (3 sources) Anemia, unspecified; Translations: [Anemia, unspecified] Onset: 11-11-2021 11-25-2021 Episodic Malaise and fatigue (2 sources) Fatigue; Translations: [Other fatigue] Onset: 09-28-2021 Episodic Other aftercare (14 sources) Encounter for therapeutic drug level monitoring; Translations: [Medication monitoring encounter Z51.81] Onset: 12-10-2020 Resolved: 12-01-2021 Episodic Other aftercare (13 sources) FPC (current) use of anticoagulants; Translations: [Long-term (current) use of anticoagulants] Onset: 11-04-2021 11-11-2021 Episodic Other connective tissue disease (5 sources) Repeated falls; Translations: [History of fall] Onset: 11-04-2021 11-11-2021 Episodic Phlebitis; thrombophlebitis and thromboembolism (1 source) Acute embolism and thrombosis of unspecified deep veins of unspecified lower extremity; Translations: [AC EMBO THROMB UNS DP VN UNS LW EXT] Onset: 12-16-2021 Episodic Residual codes; unclassified (1 source) Other specified health status; Translations: [Other specified health status] Onset: 11-04-2021 Episodic Spondylosis; intervertebral disc disorders; other back problems (20 sources) Backache; Translations: [Dorsalgia, unspecified] Onset: 11-04-2021 11-04-2021 Episodic Urinary tract infections (14 sources) Urinary tract infectious disease; Translations: [Urinary tract infection, site not specified] Onset: 11-04-2021 09-28-2021 Episodic Results Test Name Value Interpretation Reference Range Facility [facility] 02-11-2023 CNPN Telephone (NRMDN) -- ALTON BARKER ([id number]) 1940 F Date Time Provider Department 02/11/23 GLORIA PEREZ During your visit today, we recorded the following information about you: Mary Anne Beatty 02/11/2023 1:54 PM Signed [id number] [place] [address] - [address] [place] [id number] carbidopa-levodopa (SINEMET 25-100) 25-100 mg per tablet Patient son called in today in regards to medication and wanting to switch pharmacy, they were told the best way to do this would be to request a new prescription. They would like it sent to [facility] Thank you! Anu Hillman RN 02/11/2023 2:59 PM Signed Order pended to preferred pharmacy Last OV 01/20/23 Next OV 06/23/23 Anu Hillman RN 02/11/2023 2:59 PM Signed Addended by: ANU HILLMAN on: 02/11/2023 02:59 PM Modules accepted: Orders Allergies As of Date: 02/11/2023 Noted Allergy Reaction HYDROCODONE-ACETAMINOPHEN 04/13/2016 1 - Mental Status Change ADHESIVE TAPE (ROSINS) 01/12/2021 2 - Rash BUPROPION 01/18/2017 1 - Mental Status Change Comments: hallucinations LATEX, NATURAL RUBBER 04/13/2016 2 - Rash ROSUVASTATIN CALCIUM 01/12/2021 16 - Unknown Date Reviewed: 01/20/2023 Reviewed by: Gloria Perez APRN.[employer] - Fully Assessed Reason for Visit: Medication Problem [65] Visit Diagnosis:Parkinson's disease [G20.A1] Prescriptions as of 02/13/2023 - carbidopa-levodopa (SINEMET 25-100) 25-100 mg per tablet Take 1.5 tablets by mouth three times a day. - venlafaxine (EFFEXOR) 75 mg tablet - VENLAFAXINE ER 150 MG TABLET,EXTENDED RELEASE 24 HR - estradiol (ESTRACE) 0.01 % (0.1 mg/gram) vaginal cream Use vaginally one time a week. - acetaminophen (TYLENOL) 500 mg tablet Take 500 mg by mouth every 8 hours as needed. 01/18/2023: Pt takes 2 tabs daily per [employer] list - MEDICATION, NON-DATABASE 750 mg two times a day. Antiacid extra strength - metoprolol tartrate, short acting, (LOPRESSOR) 25 mg tablet Take 25 mg by mouth twice daily. - polyethylene glycol 3350 17 gram packet Take 17 g by mouth once daily. Dissolve dose in 4 - 8 ounces of liquid and take as directed. - ketoconazole (NIZORAL) 2 % shampoo Apply to affected area two times a week. - Fluocinolone-Shower Cap 0.01 % oil by scalp route. - diclofenac (VOLTAREN) 1 % topical gel - JANUVIA 100 mg tablet Take 50 mg by mouth once daily. - warfarin (COUMADIN) 4 mg tablet - cyanocobalamin (VITAMIN B-12) 500 mcg tablet Take 2 tablets by mouth once daily. - Mirtazapine (REMERON) 7.5 mg tablet Take 7.5 mg by mouth daily at bedtime. - metoprolol tartrate, short acting, (LOPRESSOR) 50 mg tablet TAKE 1 AND 1/2 (ONE AND ONE-HALF) TABLETS BY MOUTH TWICE DAILY WITH FOOD - FREESTYLE VIVIAN 2 SENSOR kit apply 1 SENSOR to back OF UPPER ARM REMOVE AND REPLACE every 14 days - metFORMIN (GLUCOPHAGE) 500 mg tablet Take 1 tablet by mouth once daily. - atorvastatin (LIPITOR) 40 mg tablet Take 40 mg by mouth once daily. - cholecalciferol (VITAMIN D3) 5,000 unit tab Take by mouth once daily. - warfarin (COUMADIN) 2 mg tablet 1 tablet once daily. - levothyroxine (SYNTHROID) 75 mcg tablet once daily. - omeprazole (PRILOSEC) 20 mg capsule 20 mg once daily. - vit C/vit E ac/lut/copper/zinc (PRESERVISION LUTEIN ORAL) Take by mouth twice daily. Problem List As Of Date 02/11/2023 Noted Resolved OSTEOARTHROS KNEE [[id number]] 06/29/2012 Parkinson's disease without dyskinesia, with fl*03/02/2018 Obesity, Class I, BMI 30-34.9 [E66.9] 07/08/2022 Depression with anxiety [F41.8] 01/20/2023 Encounter Status:Closed by MARY ANNE BEATTY on 02/11/23 [facility] CNOVon 01-20-2023 CNOV Office Visit (NRMDN) -- ALTON BARKER ([id number]) 1940 F Date Time Provider Department 01/20/23 3:00 PM GLORIA PEREZ MARIBELL During your visit today, we recorded the following information about you: Height 1.676 m Gloria Perez APRN.[employer] 01/24/2023 12:36 PM Signed [facility] - FOLLOW UP EVALUATION Honey Rabago DO [address] [facility] [address] [facility] [id number] Dear Honey Rabago DO: I had the pleasure of seeing Ms. Barker for follow-up today. As you know she is a 82 year old right-handed female with a history of Parkinson's disease since 2013. She is seen with her son. Subjective Previous Plan-07/08/2022 Visit: Parkinson's disease: Continue your current medication schedule Join the exercise class they offer there Continue physical therapy and occupational therapy Depression and anxiety: Continue venlafaxine and mirtazapine as scheduled Continue therapy I am checking you for a UTI Interval History: She is having more tremor and noted that she is not getting her Sinemet consistently on time where she lives and this is frustrating for her. She is adjusting to living there otherwise and is involved with many of the activities there. Movement Disorders Medications Schedule - as of the start of the visit: Medications 7am 12pm 5pm Bedtime Sinemet 25/100 1.5 1.5 1.5 Effexor 150mg 1 Effexor 75mg 1 Mirtazapine 7.5mg 1 Parkinson's Motor Complications Medication duration: (Comment: 4-4.5) Wearing off: yes (Comment: She will have tremor when it wears off.) Painful off-state dystonia: no Dyskinesia: no Prior Anti-Parkinson Therapies Carbidopa/Levodopa Questionnaires: In addition, the following areas that may be affected by abnormal involuntary movements were evaluated: Daily activities Difficulties with eating: Difficulties in dressing: Difficulties with hygiene activities: Difficulties with handwriting: Difficulties with doing hobbies and other activities: Difficulties turning in bed: Difficulties getting out of bed, car or chair: Tremors/Gait/Balance Shaking or tremors: Yes-worse when they do not give her the Sinemet on time. Walking and balance problems: She uses her walker 99.% of the time. Number of falls in the Last Month: 1-she fell into a laundry basket while multitasking. She was not hurt. Gait freezing: No Autonomic/Pain Lightheadeness on standing: Yes-goes away quickly Urinary problems: She feels like she is not urinating much. Constipation problems: Not usually Pain and other sensations: Taking Tylenol for pain Speech/Swallowing Speech problems: Her son said sometimes it is quiet Drooling: Occasionally Chewing and swallowing problems: Once in a while if she takes a large bite of meat or stringy meat like pulled pork. Her esophagus was dilated in the past. Sleep/Fatigue Sleep problems: She is using her Cpap. Daytime sleepiness: Not as often. Fatigue: Some days. Mood/Behavior Depression: Depression is intermittent and she is still getting counseling and is on meds. Anxiety: Anxiety is better overall She said she is more relaxed seeing her therapist virtually. Finally, the following table shows the patient's overall global physical and mental health using the PROMIS scale: PROMIS-10 Flowsheet Row Office Visit from 10/01/2021 in Neurology Office Visit from 02/03/2021 in Neurology Global Physical Health T Score 34.9 -- Global Mental Health T Score 38.8 -- 0-10 Standard Pain Scale 3 4 *PROMIS-10 scoring scale: mean = 50, over 50 is above average, under 50 is below average In addition, the following non-motor symptoms and palliative concerns were evaluated: Sleep/Fatigue: REM sleep behavior disorder: Yes She is not sure but is not tangled in her sheets, bed is not a mess, she has not fallen out of bed, etc. Restless Legs Syndrome: Yes Leg swelling: Intermittent Impaired sense of smell: Yes Cognition: Cognitive impairment: yes Her son noted that her thinking is much better when she uses her Cpap consistently. MoCA Cognitive assessment: 29 (02/03/2021) Hallucinations and delusions: She sees shadows at least once a day. Apathy: yes Impulse control disorder: No Not currently a problem but her son said in the past that she ordered a lot online or on TV, $15/month on lot[employer]oy tickets (in past also) Palliative Concerns: Caregiver burden: In assisted living so now less stress on son and daughter in law Spiritual concerns: No Advanced directives on file: No Palliative services: No Therapy and Exercise: Last PT Date: August 2022 Last OT Date: Last ST Date: August 2022 Exercises Regularly: No She has not been good following up with her therapy exercises. ALLERGIES Allergen Reactions Hydrocodone-Acetami* Mental Status Change Adhesive Tape (Sridevi* Rash Bupropion Mental Status Change halluc (more content not included)... Normal [facility] CULTURE URINEon 07-16-2022 CULTURE URINE Isolate 1 Escherichia coli >100,000 cfu/mL of ORGANISM 1 Escherichia coli ANTIBIOTIC M.I.C RX STATUS Ampicillin 4 S F Ampicillin/Sulbactam <=2 S F Piperacillin/Tazobactam <=4 S F Cefazolin <=4 S F Ceftazidime <=1 S F Ceftriaxone <=1 S F Ertapenem <=0.5 S F Imipenem <=0.25 S F Amikacin <=2 S F Gentamicin <=1 S F Tobramycin <=1 S F Ciprofloxacin <=0.25 S F Levofloxacin <=0.12 S F Nitrofurantoin <=16 S F Trimethoprim/Sulfamethoxaz ole <=20 S F Normal [facility] Comment on above: Performed By: #### U RCX #### [facility] [address] [address] [address] Joyce Strauss UA (CLEAN/CATCH) MEDICAL TERRITORY MANAGER/MICRO I F IND.on 2022 Bilirubin Ql (U) Negative Normal NEGATIVE [facility] Comment on above: Performed By: #### U MICRO, UACSIND #### [facility] [address] [address] [address] Joyce Strauss Clarity (U) CLEAR Normal CLEAR [facility] Comment on above: Performed By: #### U MICRO, UACSIND #### [facility] [address] [address] [address] Joyce Strauss Color (U) LT. YELLOW Normal YELLOW [facility] Comment on above: Performed By: #### U MICRO, UACSIND #### [facility] [address] [place] [address] Dr. Joyce Strauss Glucose Ql (U) Negative Normal NEGATIVE [facility] Comment on above: Performed By: #### U MICRO, UACSIND #### [facility] [address] [place] [address] Dr. Joyce Strauss Hemoglobin Ql (U) Negative Normal NEGATIVE [facility] Comment on above: Performed By: #### U MICRO, UACSIND #### [facility] [address] [place] [address] Dr. Joyce Strauss Ketones Ql (U) Negative Normal NEGATIVE [facility] Comment on above: Performed By: #### U MICRO, UACSIND #### [facility] [address] [place] [address] Dr. Joyce Strauss LEUKOCYTES LARGE Abnormal NEGATIVE [facility] Comment on above: Performed By: #### U MICRO, UACSIND #### [facility] [address] [place] [address] Dr. Joyce Strauss Nitrite Ql (U) Positive Abnormal NEGATIVE [facility] Comment on above: Performed By: #### U MICRO, UACSIND #### [facility] [address] [place] [address] Dr. Joyce Strauss pH (U) 5.5 [pH] Normal 5-9 [facility] Comment on above: Performed By: #### U MICRO, UACSIND #### [facility] [address] [place] [address] Dr. Joyce Strauss SPEC GRAVITY 1.010 Normal 1.005-<=1. 025 [facility] Comment on above: Performed By: #### U MICRO, UACSIND #### [facility] [address] [place] [address] Dr. Joyce Strauss UA PROTEIN TRACE Normal NEGATIVE/ TRACE [facility] Comment on above: Performed By: #### U MICRO, UACSIND #### [facility] [address] [place] [address] Dr. Joyce Strauss UR MICRO IND INDICATED Normal [facility] Comment on above: Performed By: #### U MICRO, UACSIND #### [facility] [address] [place] [address] Dr. Joyce Strauss Urobilinogen Qn (U) 0.2 {Cam'U}/dL Normal 0.2 - 1. 0 [facility] Comment on above: Performed By: #### U MICRO, UACSIND #### [facility] [address] [place] [address] Dr. Joyce Strauss URINE MICROSCOPIC ONLYon BACTERIA LARGE Abnormal NONE SEEN [facility] Comment on above: Performed By: #### U MICRO, UACSIND #### [facility] [address] [place] [address] Dr. Joyce Strauss Bacteria identified Cx Nom (U) INDICATED Normal [facility] Comment on above: Performed By: #### U MICRO, UACSIND #### [facility] [address] [place] [address] Dr. Joyce Strauss CA OX CRYSTALS RARE Normal [facility] Comment on above: Performed By: #### U MICRO, UACSIND #### [facility] [address] [place] [address] Dr. Joyce Strauss CAST NONE SEEN Normal NONE SEEN [facility] Comment on above: Performed By: #### U MICRO, UACSIND #### [facility] [address] [address] [address] Joyce Strauss Crystals LM Nom (Urine sed) SEEN Abnormal NONE SEEN [facility] Comment on above: Performed By: #### U MICRO, UACSIND #### [facility] [address] [place] [address] Dr. Joyce Strauss Epithelial cells LM Ql (Urine sed) FEW Abnormal NONE SEEN /RARE [facility] Comment on above: Performed By: #### U MICRO, UACSIND #### [facility] [address] [address] [address] Joyce Strauss MUCOUS NONE SEEN Normal NONE SEEN [facility] Comment on above: Performed By: #### U MICRO, UACSIND #### [facility] [address] [address] [address] Joyce Strauss RBC NONE SEEN Abnormal 0-2 [facility] Comment on above: Performed By: #### U MICRO, UACSIND #### [facility] [address] [address] [address] Joyce Strauss WBC (U) [#/Vol] /uL Abnormal NONE SEEN [facility] Comment on above: Performed By: #### U MICRO, UACSIND #### [facility] [address] [place] [address] Dr. 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 Barker for follow-up today. As you know she is a 81 year old right-handed female with a history of Parkinson's disease since 2013. She is seen with her son. Subjective Previous Plan-02/12/2022 Visit: Parkinson's disease: Set an alarm to take your Sinemet consistently on germaine at 9am, 2pm, and 7pm. After a week of doing this, if you are still having wearing off, please let me know and we will discuss options. Chair exercises as you are able Use your walker at all times Look into a falls alert system Appetite: If this continues to be a problem, discuss with Dr. Rabago and perhaps he can increase the mirtazapine Sleep apnea: follow up if you do not hear back from the company Depression and anxiety: continue medication and counseling Interval History: She is in assisted living and said she is getting more accustomed to it. She likes the staff. The director and product strategy director have to chip into cook since the [employer] cook and this has been good from a food standpoint. She is still losing weight as she said she lost interest in eating but with this cook it may be better. She is engaging in the activities and has a nice room and patio, but does miss being at home. Movement Disorders Medications Schedule - as of the start of the visit: Medications 7am 12pm 5pm Bedtime Sinemet 25/100 1.5 1.5 1.5 Effexor Mirtazapine 7.5mg 1 Parkinson's Motor Complications Medication benefit onset: 30 minutes Medication duration: (Comment: 4-4.5) Wearing off: yes (Comment: She will have tremor when it wears off.) Painful off-state dystonia: no Dyskinesia: no Prior Anti-Parkinson Therapies Carbidopa/Levodopa Questionnaires: In addition, the following areas that may be affected by abnormal involuntary movements were evaluated: Daily activities Difficulties with eating: Difficulties in dressing: Difficulties with hygiene activities: Difficulties with handwriting: Difficulties with doing hobbies and other activities: Difficulties turning in bed: Difficulties getting out of bed, car or chair: Tremors/Gait/Balance Shaking or tremors: Yes Walking and balance problems: Yes -doris almanza walker Number of falls in the Last Month: 1 fall-took laundry down to laundry room but all washers were full and another woman tried to help her and she got her feet caught and fell. She needed help getting help getting up and only had a little scrape. Gait freezing: Autonomic/Pain Lightheadeness on standing: Urinary problems: Has had UTIs, incontinence and has cloudy urine currently Constipation problems: Pain and other sensations: Speech/Swallowing Speech problems: No Drooling: Chewing and swallowing problems: Mp Sleep/Fatigue Sleep problems: She sleeps well but falls asleep in her chair so does not always put her Cpap on. Daytime sleepiness: Sometimes Fatigue: Mood/Behavior Depression: Most of the time if she has a good morning, she had a good day all day. Anxiety: This has improved and is not as bad as it used to be. She really likes her counselor. 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 MoCA Cognitive assessment: 29 (02/03/2021) Hallucinations and delusions: no Apathy: yes Impulse control disorder: No Not currently but her son said she ordered a lot online or on TV, $15/month on lottery tickets (in past) Palliative Concerns: Caregiver burden: In assisted living so now less stress on son and daughter in law Spiritual concerns: No Advanced directives on file: No Palliative services: No Therapy and Exercise: Last PT Date: Current June 2022 Last OT Date: Last ST Date: Current June 2022 Exercises Regula (more content not included)... Normal [facility] CULTURE URINEon 06-03-2022 CULTURE URINE Isolate 1 Escherichia coli >100,000 cfu/mL of ORGANISM 1 Escherichia coli ANTIBIOTIC M.I.C RX STATUS Ampicillin 4 S F Ampicillin/Sulbactam <=2 S F Piperacillin/Tazobactam <=4 S F Cefazolin <=4 S F Ceftazidime <=1 S F Ceftriaxone <=1 S F Ertapenem <=0.5 S F Imipenem <=0.25 S F Amikacin 4 S F Gentamicin <=1 S F Tobramycin <=1 S F Ciprofloxacin <=0.25 S F Levofloxacin <=0.12 S F Nitrofurantoin <=16 S F Trimethoprim/Sulfamethoxaz ole <=20 S F Normal [facility] Comment on above: Performed By: #### U RCX #### [facility] [address] [place] [address] Dr. Joyce Strauss UA RANDOMon 06-01-2022 Bilirubin Ql (U) Negative Normal NEGATIVE [facility] Comment on above: Performed By: #### U A #### [facility] [address] [place] [address] Dr. Joyce Strauss Clarity (U) CLOUDY Abnormal CLEAR [facility] Comment on above: Performed By: #### U A #### [facility] [address] [place] [address] Dr. Joyce Strauss Color (U) YELLOW Normal YELLOW [facility] Comment on above: Performed By: #### U A #### [facility] [address] [place] [address] Dr. Joyce Strauss Glucose Ql (U) Negative Normal NEGATIVE [facility] Comment on above: Performed By: #### U A #### [facility] [address] [place] [address] Dr. Joyce Strauss Hemoglobin Ql (U) MODERATE Abnormal NEGATIVE [facility] Comment on above: Performed By: #### U A #### [facility] [address] [place] [address] Dr. Joyce Strauss Ketones Ql (U) Negative Normal NEGATIVE [facility] Comment on above: Performed By: #### U A #### [facility] [address] [place] [address] Dr. Joyce Strauss LEUKOCYTES LARGE Abnormal NEGATIVE [facility] Comment on above: Performed By: #### U A #### [facility] [address] [place] [address] Dr. Joyce Strauss Nitrite Ql (U) Positive Abnormal NEGATIVE [facility] Comment on above: Performed By: #### U A #### [facility] [address] [place] [address] Dr. Joyce Strauss pH (U) 6.0 [pH] Normal 5-9 [facility] Comment on above: Performed By: #### U A #### [facility] [address] [place] [address] Dr. Joyce Strauss SPEC GRAVITY 1.010 Normal 1.005-<=1. 025 [facility] Comment on above: Performed By: #### U A #### [facility] [address] [place] [address] Dr. Joyce Strauss UA PROTEIN 100 mg/dl Abnormal NEGATIVE/ TRACE [facility] Comment on above: Performed By: #### U A #### [facility] [address] [place] [address] Dr. Joyce Strauss Urobilinogen Qn (U) 1.0 {Cam'U}/dL Normal 0.2 - 1. 0 [facility] Comment on above: Performed By: #### U A #### [facility] [address] [place] [address] Dr. 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 I left a message requesting a call back. Gloria Perez APRN-DIVERSIFIED CROPS FARMER Allergies As of Date: 02/15/2022 Noted Allergy Reaction HYDROCODONE-ACETAMINOPHEN 04/13/2016 1 - Mental Status Change ADHESIVE TAPE (ROSINS) 01/12/2021 2 - Rash BUPROPION 01/18/2017 1 - Mental Status Change Comments: hallucinations LATEX, NATURAL RUBBER 04/13/2016 2 - Rash ROSUVASTATIN CALCIUM 01/12/2021 16 - Unknown Date Reviewed: 02/12/2022 Reviewed by: Chery Tran MA - Fully Assessed Reason for Visit: Patient Update [1234] Order(s):cyanocobalamin (VITAMIN B-12) 500 mcg tabletTake 2 tablets by mouth once daily.Disp: Rfl: Prescriptions as of 02/15/2022 - cyanocobalamin (VITAMIN B-12) 500 mcg tablet Take 2 tablets by mouth once daily. - Mirtazapine (REMERON) 7.5 mg tablet Take 7.5 mg by mouth daily at bedtime. - gabapentin (NEURONTIN) 300 mg capsule Take 300 mg by mouth daily at bedtime. - metoprolol tartrate, short acting, (LOPRESSOR) 50 mg tablet TAKE 1 AND 1/2 (ONE AND ONE-HALF) TABLETS BY MOUTH TWICE DAILY WITH FOOD - venlafaxine ER (EFFEXOR XR) 75 mg 24 hr capsule Take 75 mg by mouth. - FREESTYLE IVVIAN 2 SENSOR kit apply 1 SENSOR to back OF UPPER ARM REMOVE AND REPLACE every 14 days - metFORMIN (GLUCOPHAGE) 500 mg tablet Take 1 tablet by mouth once daily. - atorvastatin (LIPITOR) 40 mg tablet Take 40 mg by mouth once daily. - carbidopa-levodopa (SINEMET 25-100) 25-100 mg per tablet Take 1.5 tablets by mouth three times daily. - SITagliptin phosphate (JANUVIA) 50 mg tablet Take 50 mg by mouth once daily. - cholecalciferol (VITAMIN D3) 5,000 unit tab Take by mouth once daily. - warfarin (COUMADIN) 2 mg tablet 1 tablet once daily. - venlafaxine ER (EFFEXOR XR) 150 mg 24 hr capsule 150 mg once daily. - levothyroxine (SYNTHROID) 75 mcg tablet once daily. - omeprazole (PRILOSEC) 20 mg capsule 20 mg once daily. - vit C/vit E ac/lut/copper/zinc (PRESERVISION LUTEIN ORAL) Take by mouth twice daily. Problem List As Of Date 02/15/2022 Noted Resolved OSTEOARTHROS KNEE [LPD2904] 06/29/2012 Parkinson's disease (HCC) [G20] 03/02/2018 Prescriptions ordered this encounter Disp Refills Start End CYANOCOBALAMIN (VIT B-12) 500 MCG TA* 02/15/2022 Class: Med Update Route: ORAL Sig: Take 2 tablets by mouth once daily. Medications Discontinued During This Encounter Prescriptions - cephALEXin (KEFLEX) 500 mg capsule (Discontinued) Reported on 02/12/2022 - DICLOFENAC SODIUM TOPICAL (Discontinued) Reported on 02/12/2022 - furosemide (LASIX) 20 mg tablet (Discontinued) Reported on 02/12/2022 - ketoconazole (NIZORAL) 2 % shampoo (Discontinued) Reported on 02/12/2022 - Lactobacillus acidophilus (PROBIOTIC ORAL) (Discontinued) Reported on 02/12/2022 - NYSTATIN ORAL (Discontinued) Reported on 02/12/2022 - polyethylene glycol 3350 (MIRALAX, GLYCOLAX) 17 gram packet (Discontinued) Reported on 02/12/2022 - potassium chloride ER (K-DUR, KLOR-CON) 10 mEq tablet (Discontinued) Reported on 02/12/2022 - cyanocobalamin (VITAMIN B-12) 500 mcg tablet (Discontinued) Take 1,000 mcg by mouth once daily. Encounter Status:Closed by GLORIA PEREZ on 02/15/22 Normal [facility] Urine culture routineOrdered By: Honey Rabago on 01-01-2022 Bacteria identified Cx Nom (U) Escherichia coli [facility] Automated erythrocytes count in urine sediment (number/area)Ordered By: Honey Rabago on 12-30-2021 RBC Auto (Urine sed) [#/Area] 3-4 [HPF] 0-4 [facility] Automated leukocytes count i n urine sediment (number/area)Ordered By: Honey Rabago on 12-30-2021 WBC Auto (Urine sed) [#/Area] 50-100 [HPF] 0-4 [facility] Automated urine color determ inationOrdered By: Honey Rabago on 12-30-2021 Color (U) Yellow Normal Yellow [facility] Comment on above: Order Comment: Name Collection Type:: Clean-Voided Midstream Performed By: #### G LULS #### Point of Care testing , Bilirubin Test strip Ql (U)O rdered By: Honey Rabago on 12-30-2021 Bilirubin Ql (U) Negative Negative [facility] Dipstick and Microscopicon 1 Appearance (U) Cloudy Critically abnormal Clear [facility] Comment on above: Order Comment: Name Collection Type:: Clean-Voided Midstream Performed By: #### G LULS #### Point of Care testing , Bacteria,Urine 1+ High None Seen [facility] Comment on above: Order Comment: Name Collection Type:: Clean-Voided Midstream Performed By: #### G LULS #### Point of Care testing , Bilirubin,Urine Negative Normal Negative [facility] Comment on above: Order Comment: Name Collection Type:: Clean-Voided Midstream Performed By: #### G LULS #### Point of Care testing , Glucose Ql (U) Normal Normal Normal [facility] Comment on above: Order Comment: Name Collection Type:: Clean-Voided Midstream Performed By: #### G LULS #### Point of Care testing , Hyaline Casts,Urine 0-8 Normal 0-8 [facility] Comment on above: Order Comment: Name Collection Type:: Clean-Voided Midstream Result Comment: PERF ORMED BY: [facility] [address] [place] [address] PATHOLOGIST TRACK SUBWAY REPAIR SUPERVISOR FLIP GERMAN M.D. Performed By: #### G LULS #### Point of Care testing , Ketones Ql (U) Negative Normal Negative [facility] Comment on above: Order Comment: Name Collection Type:: Clean-Voided Midstream Performed By: #### G LULS #### Point of Care testing , Leukocyte esterase Test strip Ql (U) 3+ High Negative [facility] Comment on above: Order Comment: Name Collection Type:: Clean-Voided Midstream Performed By: #### G LULS #### Point of Care testing , Nitrite,Urine Positive High Negative [facility] Comment on above: Order Comment: Name Collection Type:: Clean-Voided Midstream Performed By: #### G LULS #### Point of Care testing , Occult Blood,Urine Negative Normal Negative [facility] Comment on above: Order Comment: Name Collection Type:: Clean-Voided Midstream Result Comment: PERF ORMED BY: [facility] [address] [place] [address] PATHOLOGIST TRACK SUBWAY REPAIR SUPERVISOR FLIP GERMAN M.D. Performed By: #### G LULS #### Point of Care testing , Othe Crystals,Urine None Seen Normal [facility] Comment on above: Order Comment: Name Collection Type:: Clean-Voided Midstream Performed By: #### G LULS #### Point of Care testing , Protein,Urine Trace High Negative [facility] Comment on above: Order Comment: Name Collection Type:: Clean-Voided Midstream Performed By: #### G LULS #### Point of Care testing , RBC,Urine 3-4 Normal 0-4 [facility] Comment on above: Order Comment: Name Collection Type:: Clean-Voided Midstream Performed By: #### G LULS #### Point of Care testing , Specificy Paron,Urine 1.017 Normal 1.001-1.03 0 [facility] Comment on above: Order Comment: Name Collection Type:: Clean-Voided Midstream Performed By: #### G LULS #### Point of Care testing , Squamous Epithelial Cell,Urine 1-2 Normal 0-2 [facility] Comment on above: Order Comment: Name Collection Type:: Clean-Voided Midstream Performed By: #### G LULS #### Point of Care testing , Urobilinogen,Urine Normal Normal Normal [facility] Comment on above: Order Comment: Name Collection Type:: Clean-Voided Midstream Performed By: #### G LULS #### Point of Care testing , WBC,Urine 50-100 High 0-4 [facility] Comment on above: Order Comment: Name Collection Type:: Clean-Voided Midstream Performed By: #### Ezra SOSA #### Point of Care testing , Ketones Auto test strip (U) [Mass/Vol]Ordered By: Honey Rabago on 12-30-2021 Ketones (U) [Mass/Vol] Negative Negative [facility] - UrinalysisOrder ed By: Honey Rabago on 12-30-2021 Hyaline casts LM Ql (Urine sed) 0-8 [LPF] 0-8 [facility] Nitrite Test strip Ql (U)Ord ered By: Honey Rabago on 12-30-2021 Nitrite Ql (U) Positive Negative [facility] Protein Auto test strip (U) [Mass/Vol]Ordered By: Honey Rabago on 12-30-2021 Protein (U) [Mass/Vol] Trace mg/dL Negative [facility] Specific gravity Auto test s trip (U) [Rel density]Ordered By: Honey Rabago on 12-30-2021 Specific gravity (U) [Rel density] 1.017 1.001-1.03 0 [facility] Squamous epithelial cells de tection in urine sediment by light microscopyOrdered By: Honey Rabago on 12-30-2021 Epithelial cells.squamous LM Ql (Urine sed) 1-2 [HPF] 0-2 [facility] Urine Cultureon 12-30-2021 Bacteria identified Cx Nom (U) ORGANISM: Escherichia coli (O:ESCCOL) [place] Count >100,000 Aerobic JIMMY Charge (NUC86) SUSCEPTIBILITY ORGANISM: O:ESCCOL ANTIBIOTIC INTERPRETATION JIMMY Amikacin S <16 Ampicillin S <8 Ampicillin/Sulbactam S <8 Aztreonam S <4 Cefazolin S <2 Cefepime S <2 Ceftazidime S <1 Ceftazidime/Avibactam S <8 Ceftriaxone S <1 Ciprofloxacin S <1 Ertapenem S <0.5 Gentamicin S <4 Levofloxacin S <2 Meropenem S <1 Nitrofurantoin S <32 Piperacillin/Tazobactam S <16 Tetracycline S <4 Tigecycline S <2 Tobramycin S <4 Trimethoprim/Sulfamethoxaz ole S <2 S = SUSCEPTIBLE I = INTERMEDIATE R = RESISTANT BLANK = DATA NOT AVAILABLE, OR DRUG NOT ADVISABLE OR TESTED R* = RESISTANCE DUE TO EXTENDED SPECTRUM BETA-LACTAMASES ESBL = EXTENDED SPECTRUM BETA-LACTAMASE TFG = THYMIDINE-DEPENDENT STRAIN SANDIP = BETA-LACTAMASE POSITIVE IB = INDUCIBLE BETA-LACTAMASE. APPEARS IN PLACE OF 'S' WITH SPECIES KNOWN TO POSSESS INDUCIBLE BETA-LACTAMASES. POTENTIALLY THEY MAY BECOME RESISTANT TO ALL B-LACTAM DRUGS. PERFORMED BY: [facility] [address] [place] [address] PATHOLOGIST TRACK SUBWAY REPAIR SUPERVISOR FLIP GERMAN M.D. Normal [facility] Comment on above: Performed By: #### G LULS #### Point of Care testing , Urine bacteria detection by automated methodOrdered By: Honey Rabago on 12-30-2021 Bacteria Auto Ql (U) 1+ None Seen [facility] Urine clarity by refractomet ry automatedOrdered By: Honey Rabago on 12-30-2021 Clarity Refractometry automated (U) Cloudy Clear [facility] Urine glucose measurement by automated test strip (mass/volume)Ordered By: Honey Rabago on 12-30-2021 Glucose Auto test strip (U) [Mass/Vol] Normal mg/dL Normal [facility] Urine hemoglobin detection b y automated test stripOrdered By: Honey Rabago on 12-30-2021 Hemoglobin Auto test strip Ql (U) Negative Negative [facility] Urine leukocyte esterase det ection by automated test stripOrdered By: Honey Rabago on 12-30-2021 Leukocyte esterase Auto test strip Ql (U) 3+ Negative [facility] Urine pH measurement by auto mated test stripOrdered By: Honey Rabago on 12-30-2021 pH (U) 8.5 [pH] Normal 5.0-9.0 [facility] Comment on above: Order Comment: Name Collection Type:: Clean-Voided Midstream Performed By: #### G LULS #### Point of Care testing , Urine sediment crystal ident ification by light microscopyOrdered By: Honey Rabago on 12-30-2021 Crystals LM Nom (Urine sed) None seen [HPF] [facility] Urobilinogen Auto test strip (U) [Mass/Vol]Ordered By: Honey Rabago on 12-30-2021 Urobilinogen (U) [Mass/Vol] Normal mg/dL Normal [facility] PROTIMEon 12-21-2021 INR Coag (PPP) [Relative time] 2.34 {INR} Normal [facility] Comment on above: Performed By: #### P T #### [facility] [address] [address] [address] Joyce Strauss INR GUIDELINES SEE BELOW Normal [facility] Comment on above: Result Comment: GUDELIA RED INR: 2.0 - 3.0 CONDITIONS NOT LISTED BELOW 2.5 - 3.5 FOR PROSTHETIC HEART VALVE REPLACEMENT 2.5 - 3.5 RECURRENT THROMBOSIS Performed By: #### P T #### [facility] [address] [address] [address] Joyce Strauss PT Coag (PPP) [Time] 23.9 s Critically high 9.0-11.6 [facility] Comment on above: Performed By: #### P T #### [facility] [address] [address] [address] Joyce Strauss PROTIMEon 12-14-2021 INR GUIDELINES SEE BELOW Normal [facility] Comment on above: Result Comment: GUDELIA RED INR: 2.0 - 3.0 CONDITIONS NOT LISTED BELOW 2.5 - 3.5 FOR PROSTHETIC HEART VALVE REPLACEMENT 2.5 - 3.5 RECURRENT THROMBOSIS Performed By: #### P T #### [facility] [address] [address] [address] Joyce Strauss PT Coag (PPP) [Time] 20.6 s Critically high 9.0-11.6 [facility] Comment on above: Performed By: #### P T #### [facility] [address] [address] [address] Joyce Strauss Prothrombin Time INRon 12-14 Prothrombin Time INR [facility] Other INR Coag (PPP) [Relative time] 2.00 {INR} Normal [facility] [employer] Other Comment on above: Performed By: #### P T #### [facility] [address] [address] [address] Joyce Strauss PROTIMEon 11-30-2021 INR GUIDELINES SEE BELOW Normal [facility] Comment on above: Result Comment: GUDELIA RED INR: 2.0 - 3.0 CONDITIONS NOT LISTED BELOW 2.5 - 3.5 FOR PROSTHETIC HEART VALVE REPLACEMENT 2.5 - 3.5 RECURRENT THROMBOSIS Performed By: #### P T #### [facility] [address] [address] [address] Joyce Strauss PT Coag (PPP) [Time] 25.9 s Critically high 9.0-11.6 [facility] Comment on above: Performed By: #### P T #### [facility] [address] [address] [address] Joyce Strauss Prothrombin Time INRon 11-30 Prothrombin Time INR [facility] [employer] Other INR Coag (PPP) [Relative time] 2.55 {INR} Normal [facility] [employer] Other Comment on above: Performed By: #### P T #### [facility] [address] [place] [address] Dr. Joyce Strauss Glucose Glucometer ([facility]) [M ass/Vol]Ordered By: Alcides Moya on 11-25-2021 Glucose [Mass/Vol] 125 mg/dL [facility] Comment on above: Random Glucose Refer ence Range is dependent on time and content of last meal. Glucose of more than 200 mg/dL in a nonstressed, ambulatory subject supports the diagnosis of Diabetes Mellitus. Glucose Poct Glucometerson 0 11-25-2021 Glucose [Mass/Vol] 125 mg/dL Normal [facility] Comment on above: Result Comment: [place] om Glucose Reference Range is dependent on time and content of last meal. Glucose of more than 200 mg/dL in a nonstressed, ambulatory subject supports the diagnosis of Diabetes Mellitus. PERFORMED BY: [facility] [address] [place] [address] PATHOLOGIST TRACK [employer]WAY REPAIR SUPERVISOR FLIP GERMAN M.D. Performed By: #### G IAN #### Point of Care testing , Laboratory - CoagulationOrde red By: Alcides Moya on 11-25-2021 PT Coag (PPP) [Time] 25.5 s 9.0-12.9 [facility] Platelet poor plasma interna tional normalized ratio (INR) by coagulation assay (relatOrdered By: Alcides Moya on 11-25-2021 INR Coag (PPP) [Relative time] 2.2 {INR} [facility] Comment on above: INR Therapeutic Rang e A) Pre- and Peroperative OAT started two weeks before surgery. NOT HIP SURGERY: 1.5 - 2.5 HIP SURGERY: 2 - 3 B) Primary and secondary prevention of venous THROMBOSIS: 2 - 3 C) Active venous thrombosis, pulmonary embolism and prevention of recurrent venous thrombosis: 2 - 3 D) Prevention of arterial thromboembolism including patients with mechanical heart valves: 3 - 4.5 INR Therapeutic Rang e A) Pre- and Peroperative OAT started two weeks before surgery. NOT HIP SURGERY: 1.5 - 2.5 HIP SURGERY: 2 - 3B) Primary and secondary prevention of venous THROMBOSIS: 2 - 3C) Active venous thrombosis, pulmonary embolismand prevention of recurrent venous thrombosis: 2 - 3D) Prevention of arterial thromboembolismincluding patients with mechanical heart valves: 3 - 4.5 Prothrombin Time INRon 11-25 INR Coag (PPP) [Relative time] 2.2 {INR} Normal [facility] Comment on above: Order Comment: List the anticoagulant: COUMADIN/WARFARIN Result Comment: INR Therapeutic Range A) Pre- and Peroperative OAT started two weeks before surgery. NOT HIP SURGERY: 1.5 - 2.5 HIP SURGERY: 2 - 3 B) Primary and secondary prevention of venous THROMBOSIS: 2 - 3 C) Active venous thrombosis, pulmonary embolism and prevention of recurrent venous thrombosis: 2 - 3 D) Prevention of arterial thromboembolism including patients with mechanical heart valves: 3 - 4.5 PERFORMED BY: [facility] [address] [place] [address] PATHOLOGIST TRACK [employer] REPAIR SUPERVISOR FLIP GERMAN M.D. Performed By: #### G LULS #### Point of Care testing , PT Coag (PPP) [Time] 25.5 s High 9.0-12.9 [facility] Comment on above: Order Comment: List the anticoagulant: COUMADIN/WARFARIN Performed By: #### G LULS #### Point of Care testing , Basic Metabolic Panelon 11-12 Anion gap [Moles/Vol] 11.8 mmol/L Normal 6.0-15.0 [facility] Comment on above: Performed By: #### G LULS #### Point of Care testing , Calcium [Mass/Vol] 8.7 mg/dL Normal 8.2-10.2 [facility] Comment on above: Performed By: #### G LULS #### Point of Care testing , Chloride [Moles/Vol] 103 mmol/L Normal 95-114 [facility] Comment on above: Performed By: #### G LULS #### Point of Care testing , CO2 [Moles/Vol] 28.1 mmol/L Normal 22.0-30.0 [facility] Comment on above: Performed By: #### G LULS #### Point of Care testing , Creatinine [Mass/Vol] 0.53 mg/dL Normal 0.44-1.03 [facility] Comment on above: Performed By: #### G LULS #### Point of Care testing , Creatinine Clr Calc Pharmacy 64.37 [facility] Comment on above: Result Comment: PERF ORMED BY: [facility] [address] [place] [address] PATHOLOGIST TRACK [employer] REPAIR SUPERVISOR FLIP GERMAN M.D. Performed By: #### G LULS #### Point of Care testing , Estimated GFR ( Trista > 60 [facility] Comment on above: Result Comment: GFR estimated reference range: According to KDOQI guidelines, <60 ml/min/1.73m2 is sufficient to diagnose a patient with chronic kidney disease. Performed By: #### G LULS #### Point of Care testing , Estimated GFR (Non- Am > 60 Normal [facility] Comment on above: Performed By: #### G LULS #### Point of Care testing , Glucose [Mass/Vol] 138 mg/dL High 70-100 [facility] Comment on above: Result Comment: [place] Glucose Reference Range is dependent on time and content of last meal. Glucose of more than 200 mg/dL in a nonstressed, ambulatory subject supports the diagnosis of Diabetes Mellitus. ADA recommended reference range Performed By: #### G LULS #### Point of Care testing , Potassium [Moles/Vol] 3.9 mmol/L Normal 3.5-5.1 [facility] Comment on above: Performed By: #### G LULS #### Point of Care testing , Sodium [Moles/Vol] 139 mmol/L Normal 136-146 [facility] Comment on above: Performed By: #### G LULS #### Point of Care testing , Urea nitrogen [Mass/Vol] 6 mg/dL Low 9-23 [facility] Comment on above: Performed By: #### G LULS #### Point of Care testing , Basophils Auto (Bld) [#/Vol] Ordered By: Elham Mendoza on 11-24-2021 Basophils (Bld) [#/Vol] N/A [facility] Basophils/100 WBC Auto (Bld) Ordered By: Elham Mendoza on 11-24-2021 Basophils/100 WBC (Bld) N/A [facility] Blood anisocytosis detection Ordered By: Elham Mendoza on 11-24-2021 Anisocytosis Ql (Bld) Moderate [facility] Blood hemoglobin measurement (mass/volume)Ordered By: Elham Mendoza on 11-24-2021 Hemoglobin (Bld) [Mass/Vol] 11.4 g/dL 11.8-15.4 [facility] Blood leukocytes automated c ount (number/volume)Ordered By: Elham Mendoza on 11-24-2021 WBC (Bld) [#/Vol] 6.0 10*3/uL 4.5-11.0 [facility] Creatinine and Glomerular fi ltration rate.predicted panel (S/P/Bld)Ordered By: Elham Mendoza on 11-24-2021 Creatinine [Mass/Vol] 0.53 mg/dL 0.44-1.03 [facility] Diff and CBCon 11-24-2021 Anisocytosis Ql (Bld) Moderate Normal [facility] Comment on above: Performed By: #### G LULS #### Point of Care testing , Eosinophils/100 WBC (Bld) 2 % Normal 1-3 [facility] Comment on above: Performed By: #### G LULS #### Point of Care testing , Erythrocyte distribution width (RBC) [Ratio] 18.4 % High 11.9-15.3 [facility] Comment on above: Performed By: #### G GELACIOLS #### Point of Care testing , Hematocrit (Bld) [Volume fraction] 34.9 % Normal 34.0-46.4 [facility] Comment on above: Performed By: #### G GELACIOLS #### Point of Care testing , Hemoglobin (Bld) [Mass/Vol] 11.4 g/dL Low 11.8-15.4 [facility] Comment on above: Performed By: #### G GELACIOLS #### Point of Care testing , Lymphocytes/100 WBC (Bld) 35 % Normal 18-42 [facility] Comment on above: Performed By: #### G GELACIOLS #### Point of Care testing , MCH (RBC) [Entitic mass] 29.9 pg Normal 24.7-34.3 [facility] Comment on above: Performed By: #### G GELACIOLS #### Point of Care testing , MCV (RBC) [Entitic vol] 91.2 fL Normal 80-100 [facility] Comment on above: Performed By: #### G GELACIOLS #### Point of Care testing , Mean Corpuscular HGB Conc 32.8 g/dL Normal 32.0-35.0 [facility] Comment on above: Performed By: #### G LULS #### Point of Care testing , Monocytes/100 WBC (Bld) 7 % Normal 2-11 [facility] Comment on above: Performed By: #### G GELACIOLS #### Point of Care testing , Myelocytes 1 % High 0-0 [facility] Comment on above: Performed By: #### G GELACIOLS #### Point of Care testing , Nucleated RBC/100 WBC (Bld) [Ratio] 0.5 % Normal 0-0.5 [facility] Comment on above: Result Comment: PERF ORMED BY: [address] [place] [address] PATHOLOGIST TRACK [employer] REPAIR SUPERVISOR FLIP GERMAN M.D. Performed By: #### G GELACIOLS #### Point of Care testing , Platelet Estimate Normal Normal Normal [facility] Comment on above: Performed By: #### G GELACIOLS #### Point of Care testing , Platelet mean volume (Bld) [Entitic vol] 8.8 fL Normal 6.3-10.7 [facility] Comment on above: Performed By: #### G IAN #### Point of Care testing , Platelet Morphology Normal Normal Normal [facility] Comment on above: Result Comment: PERF ORMED BY: [facility] [address] [place] [address] PATHOLOGIST TRACK [employer] REPAIR SUPERVISOR FLIP GERMAN M.D. Performed By: #### G IAN #### Point of Care testing , Platelets (Bld) [#/Vol] 285 10*3/uL Normal 150-450 [facility] Comment on above: Performed By: #### G IAN #### Point of Care testing , RBC (Bld) [#/Vol] 3.82 10*6/uL Normal 3.60-5.00 [facility] Comment on above: Performed By: #### G GELACIOLS #### Point of Care testing , Reactive Lymphocytes 1 % Normal 0-12 [facility] Comment on above: Performed By: #### G GELACIOLS #### Point of Care testing , Segmented neutrophils/100 WBC (Bld) 54 % Normal 50-70 [facility] Comment on above: Performed By: #### G GELACIOLS #### Point of Care testing , WBC (Bld) [#/Vol] 6.0 10*3/uL Normal 4.5-11.0 [facility] Comment on above: Performed By: #### G LULS #### Point of Care testing , Eosinophils Auto (Bld) [#/Vo l]Ordered By: Elham Mendoza on 11-24-2021 Eosinophils (Bld) [#/Vol] N/A [facility] Eosinophils/100 WBC Auto (Bl d)Ordered By: Elham Mendoza on 11-24-2021 Eosinophils/100 WBC (Bld) N/A [facility] Erythrocyte distribution wid th Auto (RBC) [Ratio]Ordered By: Elham Mendoza on 11-24-2021 Erythrocyte distribution width (RBC) [Ratio] 18.4 % 11.9-15.3 [facility] Estimated glomerular filtrat ion rate (GFR) non- AmericanOrdered By: Elham Mendoza on 11-24-2021 GFR/1.73 sq M.predicted among non-blacks MDRD (S/P/Bld) [Vol rate/Area] > 60 mL/Min [facility] Glucose Poct Glucometerson 0 11-24-2021 Glucose [Mass/Vol] 139 mg/dL Normal [facility] Comment on above: Result Comment: [facility] Glucose Reference Range is dependent on time and content of last meal. Glucose of more than 200 mg/dL in a nonstressed, ambulatory subject supports the diagnosis of Diabetes Mellitus. PERFORMED BY: [address] [place] [address] PATHOLOGIST TRACK [employer] REPAIR SUPERVISOR FLIP GERMAN M.D. Performed By: #### G LUCOLLIN #### Point of Care testing , Hematocrit Auto (Bld) [Volum e fraction]Ordered By: Elham Mendoza on 11-24-2021 Hematocrit (Bld) [Volume fraction] 34.9 % 34.0-46.4 [facility] Laboratory - Hematology and Cell countsOrdered By: Elham Mendoza on 11-24-2021 Nucleated RBC/100 WBC (Bld) [Ratio] 0.5 % 0-0.5 [facility] Lymphocytes Auto (Bld) [#/Vo l]Ordered By: Elham Mendoza on 11-24-2021 Lymphocytes (Bld) [#/Vol] N/A [facility] Lymphocytes/100 WBC Auto (Bl d)Ordered By: Elham Mendoza on 11-24-2021 Lymphocytes/100 WBC (Bld) N/A [facility] Lymphocytes/100 WBC (Bld) 35 % 18-42 [facility] Lymphocytes/100 WBC Manual c nt (Bld)Ordered By: Elham Mendoza on 11-24-2021 Lymphocytes/100 WBC (Bld) 1 % 0-12 [facility] MCH Auto (RBC) [Entitic mass ]Ordered By: Elham Mendoza on 11-24-2021 MCH (RBC) [Entitic mass] 29.9 pg 24.7-34.3 [facility] MCHC Auto (RBC) [Mass/Vol]Or dered By: Elham Mendoza on 11-24-2021 MCHC (RBC) [Mass/Vol] 32.8 g/dL 32.0-35.0 [facility] MCV Auto (RBC) [Entitic vol] Ordered By: Elham Mendoza on 11-24-2021 MCV (RBC) [Entitic vol] 91.2 fL 80-100 [facility] Monocyte %Ordered By: Elham Mendoza on 11-24-2021 Monocytes/100 WBC (Bld) 2 % 1-3 [facility] Monocytes Auto (Bld) [#/Vol] Ordered By: Elham Mendoza on 11-24-2021 Monocytes (Bld) [#/Vol] N/A [facility] Monocytes/100 WBC Auto (Bld) Ordered By: Elham Mendoza on 11-24-2021 Monocytes/100 WBC (Bld) N/A [facility] Monocytes/100 WBC Manual cnt (Bld)Ordered By: Elham Mendoza on 11-24-2021 Monocytes/100 WBC (Bld) 7 % 2-11 [facility] Myelocytes/100 WBC Manual cn t (Bld)Ordered By: Elham Mendoza on 11-24-2021 Myelocytes/100 WBC (Bld) 1 % 0-0 [facility] Neutrophils Auto (Bld) [#/Vo l]Ordered By: Elham Mendoza on 11-24-2021 Neutrophils (Bld) [#/Vol] N/A [facility] Neutrophils/100 WBC Auto (Bl d)Ordered By: Elham Mendoza on 11-24-2021 Neutrophils/100 WBC (Bld) N/A [facility] No Panel InformationOrdered By: Elham Mendoza on 11-24-2021 Estimated GFR () > 60 mL/Min [facility] Comment on above: GFR estimated refere nce range: According to KDOQI guidelines, <60 ml/min/1.73m2 is sufficient to diagnose a patient with chronic kidney disease. Pharmacy Creatinine Clearance (Chem 64.37 [facility] Platelet Estimate Normal Normal [facility] Platelet Morphology Comment Normal Normal [facility] Platelet mean volume Auto (B ld) [Entitic vol]Ordered By: Elham Mendoza on 11-24-2021 Platelet mean volume (Bld) [Entitic vol] 8.8 fL 6.3-10.7 [facility] Platelets Auto (Bld) [#/Vol] Ordered By: Elham Mendoza on 11-24-2021 Platelets (Bld) [#/Vol] 285 10*3/uL 150-450 [facility] Prothrombin Time INRon 11-24 INR Coag (PPP) [Relative time] 2.6 {INR} Normal [facility] Comment on above: Order Comment: FIRST SPECIMEN HEMOLYZED Result Comment: INR Therapeutic Range A) Pre- and Peroperative OAT started two weeks before surgery. NOT HIP SURGERY: 1.5 - 2.5 HIP SURGERY: 2 - 3 B) Primary and secondary prevention of venous THROMBOSIS: 2 - 3 C) Active venous thrombosis, pulmonary embolism and prevention of recurrent venous thrombosis: 2 - 3 D) Prevention of arterial thromboembolism including patients with mechanical heart valves: 3 - 4.5 PERFORMED BY: [facility] [address] [place] [address] PATHOLOGIST TRACK [employer] REPAIR SUPERVISOR FLIP GERMAN M.D. Performed By: #### P T ####[facility] [id number] [place] [address] [facility] PT Coag (PPP) [Time] 29.3 s High 9.0-12.9 [facility] Comment on above: Order Comment: FIRST SPECIMEN HEMOLYZED Performed By: #### P T ####[facility] [id number] [place] [address] [facility] RBC Auto (Bld) [#/Vol]Ordere d By: Elham Mendoza on 11-24-2021 RBC (Bld) [#/Vol] 3.82 10*6/uL 3.60-5.00 [facility] RBC morphologyOrdered By: Pramod piercea Kelly on 11-24-2021 RBC morphology finding Nom (Bld) N/A [facility] Segmented neutrophils/100 WB C Manual cnt (Bld)Ordered By: Elham Mendoza on 11-24-2021 Segmented neutrophils/100 WBC (Bld) 54 % 50-70 [facility] Serum or plasma anion gap de terminationOrdered By: Elham Mendoza on 11-24-2021 Anion gap [Moles/Vol] 11.8 mmol/L 6.0-15.0 [facility] Serum or plasma calcium alondra urement (mass/volume)Ordered By: Elham Mendoza on 11-24-2021 Calcium [Mass/Vol] 8.7 mg/dL 8.2-10.2 [facility] Serum or plasma chloride link surement (moles/volume)Ordered By: Elham Mendoza on 11-24-2021 Chloride [Moles/Vol] 103 mmol/L 95-114 [facility] Serum or plasma glucose alondra urement (mass/volume)Ordered By: Elham Mendoza on 11-24-2021 Glucose [Mass/Vol] 138 mg/dL 70-100 [facility] Comment on above: ADA recommended refe rence range Random Glucose Reference Range is dependent on time and content of last meal. Glucose of more than 200 mg/dL in a nonstressed, ambulatory subject supports the diagnosis of Diabetes Mellitus. ADA recommended refe rence rangeRandom Glucose Reference Range is dependent on time and content of last meal. Glucose of more than 200 mg/dL in a nonstressed, ambulatory subject supports the diagnosis of Diabetes Mellitus. Serum or plasma potassium me asurement (moles/volume)Ordered By: Elham Mendoza on 11-24-2021 Potassium [Moles/Vol] 3.9 mmol/L 3.5-5.1 [facility] Serum or plasma sodium measu rement (moles/volume)Ordered By: Elham Mendoza on 11-24-2021 Sodium [Moles/Vol] 139 mmol/L 136-146 [facility] Serum or plasma total carbon dioxide measurement (moles/volume)Ordered By: Elham Mendoza on 11-24-2021 CO2 [Moles/Vol] 28.1 mmol/L 22.0-30.0 [facility] Serum or plasma urea nitroge n measurement (mass/volume)Ordered By: Elham Mendoza on 11-24-2021 Urea nitrogen [Mass/Vol] 6 mg/dL - [facility] Glucose Poct Glucometerson 0 11-23-2021 Glucose [Mass/Vol] 157 mg/dL Normal [facility] Comment on above: Result Comment: [facility] Glucose Reference Range is dependent on time and content of last meal. Glucose of more than 200 mg/dL in a nonstressed, ambulatory subject supports the diagnosis of Diabetes Mellitus. PERFORMED BY: [address] [place] [address] PATHOLOGIST TRACK [employer]WAY REPAIR SUPERVISOR FLIP GERMAN M.D. Performed By: #### G LULS #### Point of Care testing , Prothrombin Time INRon 11-23 INR Coag (PPP) [Relative time] 2.9 {INR} Normal [facility] Comment on above: Order Comment: List the anticoagulant: COUMADIN/WARFARIN Result Comment: INR Therapeutic Range A) Pre- and Peroperative OAT started two weeks before surgery. NOT HIP SURGERY: 1.5 - 2.5 HIP SURGERY: 2 - 3 B) Primary and secondary prevention of venous THROMBOSIS: 2 - 3 C) Active venous thrombosis, pulmonary embolism and prevention of recurrent venous thrombosis: 2 - 3 D) Prevention of arterial thromboembolism including patients with mechanical heart valves: 3 - 4.5 PERFORMED BY: [facility] [address] [place] [address] PATHOLOGIST TRACK [employer]WAY REPAIR SUPERVISOR FLIP GERMAN M.D. Performed By: #### G LULS #### Point of Care testing , PT Coag (PPP) [Time] 33.5 s High 9.0-12.9 [facility] Comment on above: Order Comment: List the anticoagulant: COUMADIN/WARFARIN Performed By: #### G LULS #### Point of Care testing , Glucose Poct Glucometerson 0 11-22-2021 Glucose [Mass/Vol] 161 mg/dL Normal [facility] Comment on above: Result Comment: [place] Glucose Reference Range is dependent on time and content of last meal. Glucose of more than 200 mg/dL in a nonstressed, ambulatory subject supports the diagnosis of Diabetes Mellitus. PERFORMED BY: [address] [place] [id number] PATHOLOGIST TRACK [employer]WAY REPAIR SUPERVISOR FLIP GERMAN M.D. Performed By: #### G LULS #### Point of Care testing , Glucose [Mass/Vol] 112 mg/dL Normal [facility] Comment on above: Result Comment: [place] Glucose Reference Range is dependent on time and content of last meal. Glucose of more than 200 mg/dL in a nonstressed, ambulatory subject supports the diagnosis of Diabetes Mellitus. PERFORMED BY: [address] [place] [address] PATHOLOGIST TRACK [employer]WAY REPAIR SUPERVISOR FLIP GERMAN M.D. Performed By: #### G LULS #### Point of Care testing , Prothrombin Time INRon 11-22 INR Coag (PPP) [Relative time] 2.1 {INR} Normal [facility] Comment on above: Order Comment: List the anticoagulant: COUMADIN/WARFARIN Result Comment: INR Therapeutic Range A) Pre- and Peroperative OAT started two weeks before surgery. NOT HIP SURGERY: 1.5 - 2.5 HIP SURGERY: 2 - 3 B) Primary and secondary prevention of venous THROMBOSIS: 2 - 3 C) Active venous thrombosis, pulmonary embolism and prevention of recurrent venous thrombosis: 2 - 3 D) Prevention of arterial thromboembolism including patients with mechanical heart valves: 3 - 4.5 PERFORMED BY: [address] [place] [address] PATHOLOGIST TRACK [employer]WAY REPAIR SUPERVISOR FLIP GERMAN M.D. Performed By: #### G LULS #### Point of Care testing , PT Coag (PPP) [Time] 24.4 s High 9.0-12.9 [facility] Comment on above: Order Comment: List the anticoagulant: COUMADIN/WARFARIN Performed By: #### G LULS #### Point of Care testing , Glucose Poct Glucometerson 0 11-21-2021 Commemt1 Glu2: Cleaned Meter Normal [facility] Comment on above: Result Comment: PERF ORMED BY: [facility] [address] [place] [address] PATHOLOGIST TRACK SUBWAY REPAIR SUPERVISOR FLIP GERMAN M.D. Performed By: #### G LULS #### Point of Care testing , Glucose [Mass/Vol] 130 mg/dL Normal [facility] Comment on above: Result Comment: [facility] Glucose Reference Range is dependent on time and content of last meal. Glucose of more than 200 mg/dL in a nonstressed, ambulatory subject supports the diagnosis of Diabetes Mellitus. Performed By: #### G LULS #### Point of Care testing , No Panel InformationOrdered By: Alcides Moya on 11-21-2021 Bedside Glucose Comment Glu2: cleaned meter [facility] Prothrombin Time INRon 11-21 INR Coag (PPP) [Relative time] 1.9 {INR} Normal [facility] Comment on above: Order Comment: List the anticoagulant: COUMADIN/WARFARIN Result Comment: INR Therapeutic Range A) Pre- and Peroperative OAT started two weeks before surgery. NOT HIP SURGERY: 1.5 - 2.5 HIP SURGERY: 2 - 3 B) Primary and secondary prevention of venous THROMBOSIS: 2 - 3 C) Active venous thrombosis, pulmonary embolism and prevention of recurrent venous thrombosis: 2 - 3 D) Prevention of arterial thromboembolism including patients with mechanical heart valves: 3 - 4.5 PERFORMED BY: [facility] [address] [place] [address] PATHOLOGIST TRACK SUBWAY REPAIR SUPERVISOR FLIP GERMAN M.D. Performed By: #### G LULS #### Point of Care testing , PT Coag (PPP) [Time] 21.8 s High 9.0-12.9 [facility] Comment on above: Order Comment: List the anticoagulant: COUMADIN/WARFARIN Performed By: #### G LULS #### Point of Care testing , Glucose Poct Glucometerson 0 11-20-2021 Commemt1 Glu2: Cleaned Meter Normal [facility] Comment on above: Result Comment: PERF ORMED BY: [address] [place] [address] PATHOLOGIST TRACK SUBWAY REPAIR SUPERVISOR FLIP GERMAN M.D. Performed By: #### G LULS #### Point of Care testing , Glucose [Mass/Vol] 112 mg/dL Normal [facility] Comment on above: Result Comment: [place] [facility] Glucose Reference Range is dependent on time and content of last meal. Glucose of more than 200 mg/dL in a nonstressed, ambulatory subject supports the diagnosis of Diabetes Mellitus. Performed By: #### G LULS #### Point of Care testing , Glucose [Mass/Vol] 129 mg/dL Normal [facility] Comment on above: Result Comment: [place] Glucose Reference Range is dependent on time and content of last meal. Glucose of more than 200 mg/dL in a nonstressed, ambulatory subject supports the diagnosis of Diabetes Mellitus. PERFORMED BY: [address] [place] [address] PATHOLOGIST TRACK SUBWAY REPAIR SUPERVISOR FLIP GERMAN M.D. Performed By: #### G LULS #### Point of Care testing , Prothrombin Time INRon 11-20 INR Coag (PPP) [Relative time] 2.3 {INR} Normal [facility] Comment on above: Order Comment: List the anticoagulant: COUMADIN/WARFARIN Result Comment: INR Therapeutic Range A) Pre- and Peroperative OAT started two weeks before surgery. NOT HIP SURGERY: 1.5 - 2.5 HIP SURGERY: 2 - 3 B) Primary and secondary prevention of venous THROMBOSIS: 2 - 3 C) Active venous thrombosis, pulmonary embolism and prevention of recurrent venous thrombosis: 2 - 3 D) Prevention of arterial thromboembolism including patients with mechanical heart valves: 3 - 4.5 PERFORMED BY: [address] [place] [address] PATHOLOGIST TRACK [employer]WAY REPAIR SUPERVISOR FLIP GERMAN M.D. Performed By: #### G IAN #### Point of Care testing , PT Coag (PPP) [Time] 26.6 s High 9.0-12.9 [facility] Comment on above: Order Comment: List the anticoagulant: COUMADIN/WARFARIN Performed By: #### G LULS #### Point of Care testing , CT biopsyOrdered By: Amanda viveros on 11-19-2021 Transferrin [Mass/Vol] 173 mg/dL 180-380 [facility] Glucose Poct Glucometerson 0 11-19-2021 Glucose [Mass/Vol] 122 mg/dL Normal [facility] Comment on above: Result Comment: [place] Glucose Reference Range is dependent on time and content of last meal. Glucose of more than 200 mg/dL in a nonstressed, ambulatory subject supports the diagnosis of Diabetes Mellitus. PERFORMED BY: [facility] [address] [place] [address] PATHOLOGIST TRACK SUBWAY REPAIR SUPERVISOR FLIP GERMAN M.D. Performed By: #### G IAN #### Point of Care testing , Iron [Mass/volume] in Serum or PlasmaOrdered By: Amanda Jaimes on 11-19-2021 Iron [Mass/Vol] 56 ug/dL 40-150 [facility] Iron and TIBC Profileon % Iron Saturation 23.0 % Normal 20-50 [facility] Comment on above: Performed By: #### F E and TIBC ####[address] [place] [address] [facility] Iron [Mass/Vol] 56 ug/dL Normal 40-150 [facility] Comment on above: Performed By: #### F E and TIBC ####[address] [address] [facility] Total Iron Binding Capacity 242 ug/dL Low 255-450 [facility] Comment on above: Performed By: #### F E and TIBC ####[id number] [facility] Transferrin [Mass/Vol] 173 mg/dL Low 180-380 [facility] Comment on above: Result Comment: PERF ORMED BY: [facility] [address] [place] [place] [id number] PATHOLOGIST TRACK SUBWAY REPAIR SUPERVISOR FLIP GERMAN M.D. Performed By: #### F E and TIBC ####[address] [address] [facility] Iron binding capacity [Mass/ volume] in Serum or PlasmaOrdered By: Amanda Jaimes on 11-19-2021 Iron binding capacity [Mass/Vol] 242 ug/dL 255-450 [facility] Iron saturation [Mass Fracti on] in Serum or PlasmaOrdered By: Amanda Jaimes on 11-19-2021 Iron saturation [Mass fraction] 23.0 % 20-50 [facility] Prothrombin Time INRon 11-19 INR Coag (PPP) [Relative time] 2.5 {INR} Normal [facility] Comment on above: Order Comment: List the anticoagulant: COUMADIN/WARFARIN Result Comment: INR Therapeutic Range A) Pre- and Peroperative OAT started two weeks before surgery. NOT HIP SURGERY: 1.5 - 2.5 HIP SURGERY: 2 - 3 B) Primary and secondary prevention of venous THROMBOSIS: 2 - 3 C) Active venous thrombosis, pulmonary embolism and prevention of recurrent venous thrombosis: 2 - 3 D) Prevention of arterial thromboembolism including patients with mechanical heart valves: 3 - 4.5 PERFORMED BY: [facility] [address] [place] [address] PATHOLOGIST TRACK SUBWAY REPAIR SUPERVISOR FLIP GERMAN M.D. Performed By: #### P T ####[address] [address] [facility] PT Coag (PPP) [Time] 28.4 s High 9.0-12.9 [facility] Comment on above: Order Comment: List the anticoagulant: COUMADIN/WARFARIN Performed By: #### P T ####[address] [address] [facility] Basic Metabolic Panelon 0 Anion gap [Moles/Vol] 12.3 mmol/L Normal 6.0-15.0 [facility] Comment on above: Performed By: #### G LULS #### Point of Care testing , Calcium [Mass/Vol] 8.8 mg/dL Normal 8.2-10.2 [facility] Comment on above: Performed By: #### G LULS #### Point of Care testing , Chloride [Moles/Vol] 101 mmol/L Normal 95-114 [facility] Comment on above: Performed By: #### G LULS #### Point of Care testing , CO2 [Moles/Vol] 30.7 mmol/L High 22.0-30.0 [facility] Comment on above: Performed By: #### G LULS #### Point of Care testing , Creatinine [Mass/Vol] 0.53 mg/dL Normal 0.44-1.03 [facility] Comment on above: Performed By: #### G LULS #### Point of Care testing , Creatinine Clr Calc Pharmacy 64.26 [facility] Comment on above: Result Comment: PERF ORMED BY: [facility] [address] [place] [address] PATHOLOGIST TRACK [employer]WAY REPAIR SUPERVISOR FLIP GERMAN M.D. Performed By: #### G LULS #### Point of Care testing , Estimated GFR ( Trista > 60 [facility] Comment on above: Result Comment: GFR estimated reference range: According to KDOQI guidelines, <60 ml/min/1.73m2 is sufficient to diagnose a patient with chronic kidney disease. Performed By: #### G LULS #### Point of Care testing , Estimated GFR (Non- Am > 60 [facility] Comment on above: Performed By: #### G LULS #### Point of Care testing , Glucose [Mass/Vol] 131 mg/dL High 70-100 [facility] Comment on above: Result Comment: [place] Glucose Reference Range is dependent on time and content of last meal. Glucose of more than 200 mg/dL in a nonstressed, ambulatory subject supports the diagnosis of Diabetes Mellitus. ADA recommended reference range Performed By: #### G LULS #### Point of Care testing , Potassium [Moles/Vol] 4.0 mmol/L Normal 3.5-5.1 [facility] Comment on above: Performed By: #### G GELACIOLS #### Point of Care testing , Sodium [Moles/Vol] 140 mmol/L Normal 136-146 [facility] Comment on above: Performed By: #### G GELACIOLS #### Point of Care testing , Urea nitrogen [Mass/Vol] 8 mg/dL Low 9-23 [facility] Comment on above: Performed By: #### G GELACIOLS #### Point of Care testing , Complete Blood Count Auto Di ffon 11-18-2021 Basophils (Bld) [#/Vol] 0.0 10*3/uL Normal 0.0-0.2 [facility] Comment on above: Result Comment: PERF ORMED BY: [facility] [address] [place] [address] PATHOLOGIST TRACK SUBWAY REPAIR SUPERVISOR FLIP GERMAN M.D. Performed By: #### G GELACIOLS #### Point of Care testing , Basophils/100 WBC (Bld) 0.5 % Normal . [facility] Comment on above: Performed By: #### G GELACIOLS #### Point of Care testing , Eosinophils (Bld) [#/Vol] 0.2 10*3/uL Normal 0.0-0.45 [facility] Comment on above: Performed By: #### G GELACIOLS #### Point of Care testing , Eosinophils/100 WBC (Bld) 4.0 % Normal . [facility] Comment on above: Performed By: #### G GELACIOLS #### Point of Care testing , Erythrocyte distribution width (RBC) [Ratio] 17.8 % High 11.9-15.3 [facility] Comment on above: Performed By: #### G GELACIOLS #### Point of Care testing , Hematocrit (Bld) [Volume fraction] 33.3 % Low 34.0-46.4 [facility] Comment on above: Performed By: #### G GELACIOLS #### Point of Care testing , Hemoglobin (Bld) [Mass/Vol] 10.9 g/dL Low 11.8-15.4 [facility] Comment on above: Performed By: #### G GELACIOLS #### Point of Care testing , Lymphocytes (Bld) [#/Vol] 2.2 10*3/uL Normal 1.00-4.8 [facility] Comment on above: Performed By: #### G LULS #### Point of Care testing , Lymphocytes/100 WBC (Bld) 40.3 % Normal . [facility] Comment on above: Performed By: #### G LULS #### Point of Care testing , MCH (RBC) [Entitic mass] 29.8 pg Normal 24.7-34.3 [facility] Comment on above: Performed By: #### G GELACIOLS #### Point of Care testing , MCV (RBC) [Entitic vol] 91.3 fL Normal 80-100 [facility] Comment on above: Performed By: #### G GELACIOLS #### Point of Care testing , Mean Corpuscular HGB Conc 32.6 g/dL Normal 32.0-35.0 [facility] Comment on above: Performed By: #### G GELACIOLS #### Point of Care testing , Monocytes (Bld) [#/Vol] 0.7 10*3/uL Normal 0.0-0.8 [facility] Comment on above: Performed By: #### G GELACIOLS #### Point of Care testing , Monocytes/100 WBC (Bld) 12.3 % Normal . [facility] Comment on above: Performed By: #### G GELACIOLS #### Point of Care testing , Neutrophils (Bld) [#/Vol] 2.3 10*3/uL Normal 1.8-7.7 [facility] Comment on above: Performed By: #### G GELACIOLS #### Point of Care testing , Neutrophils/100 WBC (Bld) 42.9 % Normal . [facility] Comment on above: Performed By: #### G LULS #### Point of Care testing , Nucleated RBC/100 WBC (Bld) [Ratio] 0.1 % Normal 0-0.5 [facility] Comment on above: Performed By: #### G GELACIOLS #### Point of Care testing , Platelet mean volume (Bld) [Entitic vol] 8.5 fL Normal 6.3-10.7 [facility] Comment on above: Performed By: #### G LULS #### Point of Care testing , Platelets (Bld) [#/Vol] 224 10*3/uL Normal 150-450 [facility] Comment on above: Performed By: #### G GELCAIOLS #### Point of Care testing , RBC (Bld) [#/Vol] 3.65 10*6/uL Normal 3.60-5.00 [facility] Comment on above: Performed By: #### G LULS #### Point of Care testing , WBC (Bld) [#/Vol] 5.5 10*3/uL Normal 4.5-11.0 [facility] Comment on above: Performed By: #### G GELACIOLS #### Point of Care testing , Glucose Poct Glucometerson 0 11-18-2021 Glucose [Mass/Vol] 134 mg/dL Normal [facility] Comment on above: Result Comment: [facility] Glucose Reference Range is dependent on time and content of last meal. Glucose of more than 200 mg/dL in a nonstressed, ambulatory subject supports the diagnosis of Diabetes Mellitus. PERFORMED BY: [facility] [address] [place] [address] PATHOLOGIST TRACK SUBWAY REPAIR SUPERVISOR FLIP GERMAN M.D. Performed By: #### G LULS #### Point of Care testing , Prothrombin Time INRon 11-18 INR Coag (PPP) [Relative time] 2.5 {INR} Normal [facility] Comment on above: Order Comment: List the anticoagulant: COUMADIN/WARFARIN Result Comment: INR Therapeutic Range A) Pre- and Peroperative OAT started two weeks before surgery. NOT HIP SURGERY: 1.5 - 2.5 HIP SURGERY: 2 - 3 B) Primary and secondary prevention of venous THROMBOSIS: 2 - 3 C) Active venous thrombosis, pulmonary embolism and prevention of recurrent venous thrombosis: 2 - 3 D) Prevention of arterial thromboembolism including patients with mechanical heart valves: 3 - 4.5 PERFORMED BY: [facility] [address] [place] [address] PATHOLOGIST TRACK SUBWAY REPAIR SUPERVISOR FLIP GERMAN M.D. Performed By: #### G LULS #### Point of Care testing , PT Coag (PPP) [Time] 28.3 s High 9.0-12.9 [facility] Comment on above: Order Comment: List the anticoagulant: COUMADIN/WARFARIN Performed By: #### G LULS #### Point of Care testing , Glucose Poct Glucometerson 0 11-17-2021 Glucose [Mass/Vol] 124 mg/dL Normal [facility] Comment on above: Result Comment: [facility] Glucose Reference Range is dependent on time and content of last meal. Glucose of more than 200 mg/dL in a nonstressed, ambulatory subject supports the diagnosis of Diabetes Mellitus. PERFORMED BY: [facility] [address] [place] [address] PATHOLOGIST TRACK SUBWAY REPAIR SUPERVISOR FLIP GERMAN M.D. Performed By: #### G LULS #### Point of Care testing , Prothrombin Time INRon 11-17 INR Coag (PPP) [Relative time] 2.7 {INR} Normal [facility] Comment on above: Order Comment: List the anticoagulant: COUMADIN/WARFARIN Result Comment: INR Therapeutic Range A) Pre- and Peroperative OAT started two weeks before surgery. NOT HIP SURGERY: 1.5 - 2.5 HIP SURGERY: 2 - 3 B) Primary and secondary prevention of venous THROMBOSIS: 2 - 3 C) Active venous thrombosis, pulmonary embolism and prevention of recurrent venous thrombosis: 2 - 3 D) Prevention of arterial thromboembolism including patients with mechanical heart valves: 3 - 4.5 PERFORMED BY: [facility] [address] [place] [address] PATHOLOGIST TRACK SUBWAY REPAIR SUPERVISOR FLIP GERMAN M.D. Performed By: #### P T ####[facility] [id number] [place] [address] [facility] PT Coag (PPP) [Time] 30.8 s High 9.0-12.9 [facility] Comment on above: Order Comment: List the anticoagulant: COUMADIN/WARFARIN Performed By: #### P T ####[facility] [id number] [place] [address] [facility] Glucose Poct Glucometerson 0 11-16-2021 Commemt1 Glu2: Cleaned Meter Normal [facility] Comment on above: Result Comment: PERF ORMED BY: [facility] [address] [place] [address] PATHOLOGIST TRACK SUBWAY REPAIR SUPERVISOR FLIP GERMAN M.D. Performed By: #### G LULS #### Point of Care testing , Glucose [Mass/Vol] 125 mg/dL Normal [facility] Comment on above: Result Comment: [place] Glucose Reference Range is dependent on time and content of last meal. Glucose of more than 200 mg/dL in a nonstressed, ambulatory subject supports the diagnosis of Diabetes Mellitus. Performed By: #### G LULS #### Point of Care testing , Prothrombin Time INRon 11-16 INR Coag (PPP) [Relative time] 2.9 {INR} Normal [facility] Comment on above: Order Comment: List the anticoagulant: COUMADIN/WARFARIN Result Comment: INR Therapeutic Range A) Pre- and Peroperative OAT started two weeks before surgery. NOT HIP SURGERY: 1.5 - 2.5 HIP SURGERY: 2 - 3 B) Primary and secondary prevention of venous THROMBOSIS: 2 - 3 C) Active venous thrombosis, pulmonary embolism and prevention of recurrent venous thrombosis: 2 - 3 D) Prevention of arterial thromboembolism including patients with mechanical heart valves: 3 - 4.5 PERFORMED BY: [facility] [address] [place] [address] PATHOLOGIST TRACK SUBWAY REPAIR SUPERVISOR FLIP GERMAN M.D. Performed By: #### G LULS #### Point of Care testing , PT Coag (PPP) [Time] 32.9 s High 9.0-12.9 [facility] Comment on above: Order Comment: List the anticoagulant: COUMADIN/WARFARIN Performed By: #### G LULS #### Point of Care testing , Glucose Poct Glucometerson 0 11-15-2021 Glucose [Mass/Vol] 145 mg/dL Normal [facility] Comment on above: Result Comment: [place] Glucose Reference Range is dependent on time and content of last meal. Glucose of more than 200 mg/dL in a nonstressed, ambulatory subject supports the diagnosis of Diabetes Mellitus. PERFORMED BY: [address] [place] [address] PATHOLOGIST TRACK SUBWAY REPAIR SUPERVISOR FLIP GERMAN M.D. Performed By: #### G LULS #### Point of Care testing , Commemt1 Glu2: Cleaned Meter Normal [facility] Comment on above: Result Comment: PERF ORMED BY: [address] [place] [address] PATHOLOGIST TRACK SUBWAY REPAIR SUPERVISOR FLIP GERMAN M.D. Performed By: #### G LULS #### Point of Care testing , Glucose [Mass/Vol] 131 mg/dL Normal [facility] Comment on above: Result Comment: [facility] Glucose Reference Range is dependent on time and content of last meal. Glucose of more than 200 mg/dL in a nonstressed, ambulatory subject supports the diagnosis of Diabetes Mellitus. Performed By: #### G LULS #### Point of Care testing , Commemt1 Glu2: Cleaned Meter [facility] Comment on above: Result Comment: PERF ORMED BY: [address] [place] [address] PATHOLOGIST TRACK SUBWAY REPAIR SUPERVISOR FLIP GERMAN M.D. Performed By: #### G LULS #### Point of Care testing , Glucose [Mass/Vol] 201 mg/dL Normal [facility] Comment on above: Result Comment: [facility] Glucose Reference Range is dependent on time and content of last meal. Glucose of more than 200 mg/dL in a nonstressed, ambulatory subject supports the diagnosis of Diabetes Mellitus. Performed By: #### G LULS #### Point of Care testing , Commemt1 Glu2: Cleaned Meter [facility] Comment on above: Result Comment: PERF ORMED BY: [address] [place] [address] PATHOLOGIST TRACK SUBWAY REPAIR SUPERVISOR FLIP GERMAN M.D. Performed By: #### G LULS #### Point of Care testing , Glucose [Mass/Vol] 184 mg/dL Normal [facility] Comment on above: Result Comment: [place] Glucose Reference Range is dependent on time and content of last meal. Glucose of more than 200 mg/dL in a nonstressed, ambulatory subject supports the diagnosis of Diabetes Mellitus. Performed By: #### G LULS #### Point of Care testing , Prothrombin Time INRon 11-15 INR Coag (PPP) [Relative time] 2.4 {INR} Normal [facility] Comment on above: Order Comment: List the anticoagulant: COUMADIN/WARFARIN Result Comment: INR Therapeutic Range A) Pre- and Peroperative OAT started two weeks before surgery. NOT HIP SURGERY: 1.5 - 2.5 HIP SURGERY: 2 - 3 B) Primary and secondary prevention of venous THROMBOSIS: 2 - 3 C) Active venous thrombosis, pulmonary embolism and prevention of recurrent venous thrombosis: 2 - 3 D) Prevention of arterial thromboembolism including patients with mechanical heart valves: 3 - 4.5 PERFORMED BY: [facility] [address] [place] [address] PATHOLOGIST TRACK SUBWAY REPAIR SUPERVISOR FLIP GERMAN M.D. Performed By: #### G LULS #### Point of Care testing , PT Coag (PPP) [Time] 27.8 s High 9.0-12.9 [facility] Comment on above: Order Comment: List the anticoagulant: COUMADIN/WARFARIN Performed By: #### G LULS #### Point of Care testing , Glucose Poct Glucometerson 0 11-14-2021 Commemt1 Glu2: Cleaned Meter Normal [facility] Comment on above: Result Comment: PERF ORMED BY: [facility] [address] [place] [address] PATHOLOGIST TRACK SUBWAY REPAIR SUPERVISOR FLIP GERMAN M.D. Performed By: #### G LULS #### Point of Care testing , Glucose [Mass/Vol] 152 mg/dL Normal [facility] Comment on above: Result Comment: [place] Glucose Reference Range is dependent on time and content of last meal. Glucose of more than 200 mg/dL in a nonstressed, ambulatory subject supports the diagnosis of Diabetes Mellitus. Performed By: #### G LULS #### Point of Care testing , Glucose [Mass/Vol] 179 mg/dL Normal [facility] Comment on above: Result Comment: [facility] Glucose Reference Range is dependent on time and content of last meal. Glucose of more than 200 mg/dL in a nonstressed, ambulatory subject supports the diagnosis of Diabetes Mellitus. PERFORMED BY: [address] [place] [address] PATHOLOGIST TRACK SUBWAY REPAIR SUPERVISOR FLIP GERMAN M.D. Performed By: #### G LULS #### Point of Care testing , Glucose [Mass/Vol] 211 mg/dL Normal [facility] Comment on above: Result Comment: [facility] Glucose Reference Range is dependent on time and content of last meal. Glucose of more than 200 mg/dL in a nonstressed, ambulatory subject supports the diagnosis of Diabetes Mellitus. PERFORMED BY: [address] [place] [address] PATHOLOGIST TRACK SUBWAY REPAIR SUPERVISOR FLIP GERMAN M.D. Performed By: #### G LULS #### Point of Care testing , Glucose [Mass/Vol] 184 mg/dL Normal [facility] Comment on above: Result Comment: [facility] Glucose Reference Range is dependent on time and content of last meal. Glucose of more than 200 mg/dL in a nonstressed, ambulatory subject supports the diagnosis of Diabetes Mellitus. PERFORMED BY: [facility] [address] [place] [address] PATHOLOGIST TRACK SUBWAY REPAIR SUPERVISOR FLIP GERMAN M.D. Performed By: #### G LULS #### Point of Care testing , Prothrombin Time INRon 11-14 INR Coag (PPP) [Relative time] 2.2 {INR} Normal [facility] Comment on above: Order Comment: List the anticoagulant: COUMADIN/WARFARIN Result Comment: INR Therapeutic Range A) Pre- and Peroperative OAT started two weeks before surgery. NOT HIP SURGERY: 1.5 - 2.5 HIP SURGERY: 2 - 3 B) Primary and secondary prevention of venous THROMBOSIS: 2 - 3 C) Active venous thrombosis, pulmonary embolism and prevention of recurrent venous thrombosis: 2 - 3 D) Prevention of arterial thromboembolism including patients with mechanical heart valves: 3 - 4.5 PERFORMED BY: [place] [address] [place] [address] PATHOLOGIST TRACK [employer] REPAIR SUPERVISOR FLIP GERMAN M.D. Performed By: #### G LULS #### Point of Care testing , PT Coag (PPP) [Time] 25.7 s High 9.0-12.9 [facility] Comment on above: Order Comment: List the anticoagulant: COUMADIN/WARFARIN Performed By: #### G LULS #### Point of Care testing , Glucose Glucometer (BldC) [M ass/Vol]Ordered By: Alcides Moya on 11-13-2021 Glucose [Mass/Vol] 146 mg/dL [facility] Comment on above: Random Glucose Refer ence Range is dependent on time and content of last meal. Glucose of more than 200 mg/dL in a nonstressed, ambulatory subject supports the diagnosis of Diabetes Mellitus. Glucose Poct Glucometerson 0 11-13-2021 Glucose [Mass/Vol] 146 mg/dL Normal [facility] Comment on above: Result Comment: [place] Glucose Reference Range is dependent on time and content of last meal. Glucose of more than 200 mg/dL in a nonstressed, ambulatory subject supports the diagnosis of Diabetes Mellitus. PERFORMED BY: [facility] [address] [place] [address] PATHOLOGIST TRACK [employer] REPAIR SUPERVISOR FLIP GERMAN M.D. Performed By: #### G LULS ####Point of Care testing, Commemt1 Glu2: Cleaned Meter Normal [facility] Comment on above: Result Comment: PERF ORMED BY: [facility] [address] [place] [address] PATHOLOGIST TRACK [employer] REPAIR SUPERVISOR FLIP GERMAN M.D. Performed By: #### G LULS ####Point of Care testing, Glucose [Mass/Vol] 128 mg/dL Normal [facility] Comment on above: Result Comment: [place] Glucose Reference Range is dependent on time and content of last meal. Glucose of more than 200 mg/dL in a nonstressed, ambulatory subject supports the diagnosis of Diabetes Mellitus. Performed By: #### G LULS ####Point of Care testing, Commemt1 Glu2: Cleaned Meter [facility] Comment on above: Result Comment: PERF ORMED BY: [address] [place] [address] PATHOLOGIST TRACK [employer] REPAIR SUPERVISOR FLIP GERMAN M.D. Performed By: #### G LULS #### Point of Care testing , Glucose [Mass/Vol] 145 mg/dL Normal [facility] Comment on above: Result Comment: [place] Glucose Reference Range is dependent on time and content of last meal. Glucose of more than 200 mg/dL in a nonstressed, ambulatory subject supports the diagnosis of Diabetes Mellitus. Performed By: #### G LULS #### Point of Care testing , Commemt1 Glu2: Cleaned Meter [facility] Comment on above: Result Comment: PERF ORMED BY: [address] [place] [address] PATHOLOGIST TRACK [employer] REPAIR SUPERVISOR FLIP GERMAN M.D. Performed By: #### G LULS #### Point of Care testing , Glucose [Mass/Vol] 122 mg/dL Normal [facility] Comment on above: Result Comment: [place] Glucose Reference Range is dependent on time and content of last meal. Glucose of more than 200 mg/dL in a nonstressed, ambulatory subject supports the diagnosis of Diabetes Mellitus. Performed By: #### G LULS #### Point of Care testing , Glucose [Mass/Vol] 116 mg/dL Normal [facility] Comment on above: Result Comment: [place] Glucose Reference Range is dependent on time and content of last meal. Glucose of more than 200 mg/dL in a nonstressed, ambulatory subject supports the diagnosis of Diabetes Mellitus. PERFORMED BY: [address] [place] [address] PATHOLOGIST TRACK [employer] REPAIR SUPERVISOR FLIP GERMAN M.D. Performed By: #### G LULS ####Point of Care testing, No Panel InformationOrdered By: Alcides Moya on 11-13-2021 Bedside Glucose Comment Glu2: cleaned meter [facility] Platelet poor plasma interna tional normalized ratio (INR) by coagulation assay (relatOrdered By: Alcides Moya on 11-13-2021 INR Coag (PPP) [Relative time] 2.6 {INR} Normal [facility] Comment on above: INR Therapeutic Rang e A) Pre- and Peroperative OAT started two weeks before surgery. NOT HIP SURGERY: 1.5 - 2.5 HIP SURGERY: 2 - 3 B) Primary and secondary prevention of venous THROMBOSIS: 2 - 3 C) Active venous thrombosis, pulmonary embolism and prevention of recurrent venous thrombosis: 2 - 3 D) Prevention of arterial thromboembolism including patients with mechanical heart valves: 3 - 4.5 Order Comment: List the anticoagulant: COUMADIN/WARFARIN Result Comment: INR Therapeutic Range A) Pre- and Peroperative OAT started two weeks before surgery. NOT HIP SURGERY: 1.5 - 2.5 HIP SURGERY: 2 - 3 B) Primary and secondary prevention of venous THROMBOSIS: 2 - 3 C) Active venous thrombosis, pulmonary embolism and prevention of recurrent venous thrombosis: 2 - 3 D) Prevention of arterial thromboembolism including patients with mechanical heart valves: 3 - 4.5 PERFORMED BY: [facility] [address] [place] [address] PATHOLOGIST TRACK [employer] REPAIR SUPERVISOR FLIP GERMAN M.D. Performed By: #### P T ####[place] [address] [place] [id number] [facility] Prothrombin Time INROrdered By: Alcides Moya on 11-13-2021 PT Coag (PPP) [Time] 29.5 s High 9.0-12.9 [facility] Comment on above: Order Comment: List the anticoagulant: COUMADIN/WARFARIN Performed By: #### P T ####[place] [address] [place] [id number] [facility] Albumin [Mass/volume] in Ser um or PlasmaOrdered By: Alcides Moya on 11-12-2021 Albumin [Mass/Vol] 3.1 g/dL 3.2-5.5 [facility] Basophils Auto (Bld) [#/Vol] Ordered By: Alcides Moya on 11-12-2021 Basophils (Bld) [#/Vol] 0.0 10*3/uL 0.0-0.2 [facility] Basophils/100 WBC Auto (Bld) Ordered By: Alcides Moya on 11-12-2021 Basophils/100 WBC (Bld) 0.5 % . [facility] Blood hemoglobin measurement (mass/volume)Ordered By: Alcides Moya on 11-12-2021 Hemoglobin (Bld) [Mass/Vol] 12.5 g/dL 11.8-15.4 [facility] Blood leukocytes automated c ount (number/volume)Ordered By: Alcides Moya on 11-12-2021 WBC (Bld) [#/Vol] 5.0 10*3/uL 4.5-11.0 [facility] Complete Blood Count Auto Di ffon 11-12-2021 Basophils (Bld) [#/Vol] 0.0 10*3/uL Normal 0.0-0.2 [facility] Comment on above: Result Comment: PERF ORMED BY: [facility] [address] [place] [address] PATHOLOGIST TRACK [employer] REPAIR SUPERVISOR FLIP GERMAN M.D. Performed By: #### G LULS #### Point of Care testing , Basophils/100 WBC (Bld) 0.5 % Normal . [facility] Comment on above: Performed By: #### G LULS #### Point of Care testing , Eosinophils (Bld) [#/Vol] 0.2 10*3/uL Normal 0.0-0.45 [facility] Comment on above: Performed By: #### G LULS #### Point of Care testing , Eosinophils/100 WBC (Bld) 3.8 % Normal . [facility] Comment on above: Performed By: #### G LULS #### Point of Care testing , Erythrocyte distribution width (RBC) [Ratio] 17.3 % High 11.9-15.3 [facility] Comment on above: Performed By: #### G LULS #### Point of Care testing , Hematocrit (Bld) [Volume fraction] 38.9 % Normal 34.0-46.4 [facility] Comment on above: Performed By: #### G LULS #### Point of Care testing , Hemoglobin (Bld) [Mass/Vol] 12.5 g/dL Normal 11.8-15.4 [facility] Comment on above: Performed By: #### Ezra SOSA #### Point of Care testing , Lymphocytes (Bld) [#/Vol] 2.0 10*3/uL Normal 1.00-4.8 [facility] Comment on above: Performed By: #### Ezra SOSA #### Point of Care testing , Lymphocytes/100 WBC (Bld) 39.7 % Normal . [facility] Comment on above: Performed By: #### Ezra BRIZUELALS #### Point of Care testing , MCH (RBC) [Entitic mass] 29.2 pg Normal 24.7-34.3 [facility] Comment on above: Performed By: #### Ezra SOSA #### Point of Care testing , MCV (RBC) [Entitic vol] 90.6 fL Normal 80-100 [facility] Comment on above: Performed By: #### Ezra SOSA #### Point of Care testing , Mean Corpuscular HGB Conc 32.2 g/dL Normal 32.0-35.0 [facility] Comment on above: Performed By: #### Ezra SOSA #### Point of Care testing , Monocytes (Bld) [#/Vol] 0.5 10*3/uL Normal 0.0-0.8 [facility] Comment on above: Performed By: #### Ezra SOSA #### Point of Care testing , Monocytes/100 WBC (Bld) 10.1 % Normal . [facility] Comment on above: Performed By: #### Ezra SOSA #### Point of Care testing , Neutrophils (Bld) [#/Vol] 2.3 10*3/uL Normal 1.8-7.7 [facility] Comment on above: Performed By: #### Ezra SOSA #### Point of Care testing , Neutrophils/100 WBC (Bld) 45.9 % Normal . [facility] Comment on above: Performed By: #### Ezra SOSA #### Point of Care testing , Nucleated RBC/100 WBC (Bld) [Ratio] 0.0 % Normal 0-0.5 [facility] Comment on above: Performed By: #### Ezra SOSA #### Point of Care testing , Platelet mean volume (Bld) [Entitic vol] 8.6 fL Normal 6.3-10.7 [facility] Comment on above: Performed By: #### Ezra SOSA #### Point of Care testing , Platelets (Bld) [#/Vol] 241 10*3/uL Normal 150-450 [facility] Comment on above: Performed By: #### Ezra SOSA #### Point of Care testing , RBC (Bld) [#/Vol] 4.29 10*6/uL Normal 3.60-5.00 [facility] Comment on above: Performed By: #### Ezra SOSA #### Point of Care testing , WBC (Bld) [#/Vol] 5.0 10*3/uL Normal 4.5-11.0 [facility] Comment on above: Performed By: #### Ezra SOSA #### Point of Care testing , Comprehensive Metabolic Pane loco 11-12-2021 Albumin [Mass/Vol] 3.1 g/dL Low 3.2-5.5 [facility] Comment on above: Performed By: #### Ezra SOSA #### Point of Care testing , Albumin/Globulin [Mass ratio] 0.8 {ratio} Normal [facility] Comment on above: Performed By: #### Ezra SOSA #### Point of Care testing , ALP [Catalytic activity/Vol] 84 U/L Normal 32-92 [facility] Comment on above: Performed By: #### Ezra SOSA #### Point of Care testing , ALT [Catalytic activity/Vol] 13 U/L Normal 10-60 [facility] Comment on above: Performed By: #### Ezra SOSA #### Point of Care testing , Anion gap [Moles/Vol] 11.9 mmol/L Normal 6.0-15.0 [facility] Comment on above: Performed By: #### Ezra SOSA #### Point of Care testing , AST [Catalytic activity/Vol] 22 U/L Normal 10-42 [facility] Comment on above: Performed By: #### G LULS #### Point of Care testing , Bilirubin [Mass/Vol] 0.8 mg/dL Normal 0.3-1.2 [facility] Comment on above: Performed By: #### G LULS #### Point of Care testing , Calcium [Mass/Vol] 9.2 mg/dL Normal 8.2-10.2 [facility] Comment on above: Performed By: #### G LULS #### Point of Care testing , Chloride [Moles/Vol] 100 mmol/L Normal 95-114 [facility] Comment on above: Performed By: #### G LULS #### Point of Care testing , CO2 [Moles/Vol] 31.0 mmol/L High 22.0-30.0 [facility] Comment on above: Performed By: #### G LULS #### Point of Care testing , Creatinine [Mass/Vol] 0.55 mg/dL Normal 0.44-1.03 [facility] Comment on above: Performed By: #### G LULS #### Point of Care testing , Creatinine Clr Calc Pharmacy 64.44 [facility] Comment on above: Performed By: #### G LULS #### Point of Care testing , Estimated GFR ( Trista > 60 [facility] Comment on above: Result Comment: GFR estimated reference range: According to KDOQI guidelines, <60 ml/min/1.73m2 is sufficient to diagnose a patient with chronic kidney disease. Performed By: #### G LULS #### Point of Care testing , Estimated GFR (Non- Am > 60 [facility] Comment on above: Performed By: #### G LULS #### Point of Care testing , Globulin (S) [Mass/Vol] 3.7 g/dL [facility] Comment on above: Performed By: #### G LULS #### Point of Care testing , Glucose [Mass/Vol] 130 mg/dL High 70-100 [facility] Comment on above: Result Comment: [place] Glucose Reference Range is dependent on time and content of last meal. Glucose of more than 200 mg/dL in a nonstressed, ambulatory subject supports the diagnosis of Diabetes Mellitus. ADA recommended reference range Performed By: #### G LULS #### Point of Care testing , Potassium [Moles/Vol] 3.9 mmol/L Normal 3.5-5.1 [facility] Comment on above: Performed By: #### G LULS #### Point of Care testing , Protein [Mass/Vol] 6.8 g/dL Normal 6.1-7.9 [facility] Comment on above: Performed By: #### G LULS #### Point of Care testing , Sodium [Moles/Vol] 139 mmol/L Normal 136-146 [facility] Comment on above: Performed By: #### G LULS #### Point of Care testing , Urea nitrogen [Mass/Vol] 8 mg/dL Low 9-23 [facility] Comment on above: Performed By: #### G LULS #### Point of Care testing , Creatinine and Glomerular fi ltration rate.predicted panel (S/P/Bld)Ordered By: Alcides Moya on 11-12-2021 Creatinine [Mass/Vol] 0.55 mg/dL 0.44-1.03 [facility] Eosinophils Auto (Bld) [#/Vo l]Ordered By: Alcides Moya on 11-12-2021 Eosinophils (Bld) [#/Vol] 0.2 10*3/uL 0.0-0.45 [facility] Eosinophils/100 WBC Auto (Bl d)Ordered By: Alcides Moya on 11-12-2021 Eosinophils/100 WBC (Bld) 3.8 % . [facility] Erythrocyte distribution wid th Auto (RBC) [Ratio]Ordered By: Alcides Moya on 11-12-2021 Erythrocyte distribution width (RBC) [Ratio] 17.3 % 11.9-15.3 [facility] Estimated glomerular filtrat ion rate (GFR) non- AmericanOrdered By: Alcides Moya on 11-12-2021 GFR/1.73 sq M.predicted among non-blacks MDRD (S/P/Bld) [Vol rate/Area] > 60 mL/Min [facility] Globulin Calc (S) [Mass/Vol] Ordered By: Alcides Moya on 11-12-2021 Globulin (S) [Mass/Vol] 3.7 g/dL [facility] Glucose Glucometer (BldC) [M ass/Vol]Ordered By: Alcides Moya on 11-12-2021 Glucose [Mass/Vol] 212 mg/dL [facility] Comment on above: Random Glucose Refer ence Range is dependent on time and content of last meal. Glucose of more than 200 mg/dL in a nonstressed, ambulatory subject supports the diagnosis of Diabetes Mellitus. Glucose Poct Glucometerson 0 11-12-2021 Glucose [Mass/Vol] 212 mg/dL Normal [facility] Comment on above: Result Comment: [place] Glucose Reference Range is dependent on time and content of last meal. Glucose of more than 200 mg/dL in a nonstressed, ambulatory subject supports the diagnosis of Diabetes Mellitus. PERFORMED BY: [address] [place] [id number] PATHOLOGIST TRACK [employer] REPAIR SUPERVISOR FLIP GERMAN M.D. Performed By: #### G LULS #### Point of Care testing , Glucose [Mass/Vol] 293 mg/dL Normal [facility] Comment on above: Result Comment: [place] Glucose Reference Range is dependent on time and content of last meal. Glucose of more than 200 mg/dL in a nonstressed, ambulatory subject supports the diagnosis of Diabetes Mellitus. PERFORMED BY: [address] [place] [place] [id number] PATHOLOGIST TRACK [employer]WAY REPAIR SUPERVISOR FLIP GERMAN M.D. Performed By: #### G LULS #### Point of Care testing , Commemt1 Glu2: Cleaned Meter Normal [facility] Comment on above: Result Comment: PERF ORMED BY: [address] [place] [address] PATHOLOGIST TRACK [employer] REPAIR SUPERVISOR FLIP GERMAN M.D. Performed By: #### G LULS #### Point of Care testing , Glucose [Mass/Vol] 204 mg/dL Normal [facility] Comment on above: Result Comment: [place] Glucose Reference Range is dependent on time and content of last meal. Glucose of more than 200 mg/dL in a nonstressed, ambulatory subject supports the diagnosis of Diabetes Mellitus. Performed By: #### G LULS #### Point of Care testing , Commemt1 Glu2: Cleaned Meter Normal [facility] Comment on above: Result Comment: PERF ORMED BY: [facility] [place] [address] PATHOLOGIST TRACK [employer] REPAIR SUPERVISOR FLIP GERMAN M.D. Performed By: #### G LULS #### Point of Care testing , Glucose [Mass/Vol] 188 mg/dL Normal [facility] Comment on above: Result Comment: [facility] Glucose Reference Range is dependent on time and content of last meal. Glucose of more than 200 mg/dL in a nonstressed, ambulatory subject supports the diagnosis of Diabetes Mellitus. Performed By: #### G LULS #### Point of Care testing , Hematocrit Auto (Bld) [Volum e fraction]Ordered By: Alcides Moya on 11-12-2021 Hematocrit (Bld) [Volume fraction] 38.9 % 34.0-46.4 [facility] - CoagulationOrde red By: Alcides Moya on 11-12-2021 PT Coag (PPP) [Time] 34.1 s 9.0-12.9 [facility] - Hematology and Cell countsOrdered By: Alcides Moya on 11-12-2021 Nucleated RBC/100 WBC (Bld) [Ratio] 0.0 % 0-0.5 [facility] Lymphocytes Auto (Bld) [#/Vo l]Ordered By: Alcides Moya on 11-12-2021 Lymphocytes (Bld) [#/Vol] 2.0 10*3/uL 1.00-4.8 [facility] Lymphocytes/100 WBC Auto (Bl d)Ordered By: Alcides Moya on 11-12-2021 Lymphocytes/100 WBC (Bld) 39.7 % . [facility] MCH Auto (RBC) [Entitic mass ]Ordered By: Alcides Moya on 11-12-2021 MCH (RBC) [Entitic mass] 29.2 pg 24.7-34.3 [facility] MCHC Auto (RBC) [Mass/Vol]Or dered By: Alcides Moya on 11-12-2021 MCHC (RBC) [Mass/Vol] 32.2 g/dL 32.0-35.0 [facility] MCV Auto (RBC) [Entitic vol] Ordered By: Alcides Moya on 11-12-2021 MCV (RBC) [Entitic vol] 90.6 fL 80-100 [facility] Monocytes Auto (Bld) [#/Vol] Ordered By: Alcides Moya on 11-12-2021 Monocytes (Bld) [#/Vol] 0.5 10*3/uL 0.0-0.8 [facility] Monocytes/100 WBC Auto (Bld) Ordered By: Alcides Moya on 11-12-2021 Monocytes/100 WBC (Bld) 10.1 % . [facility] Neutrophils Auto (Bld) [#/Vo l]Ordered By: Alcides Moya on 11-12-2021 Neutrophils (Bld) [#/Vol] 2.3 10*3/uL 1.8-7.7 [facility] Neutrophils/100 WBC Auto (Bl d)Ordered By: Alcides Moya on 11-12-2021 Neutrophils/100 WBC (Bld) 45.9 % . [facility] No Panel InformationOrdered By: Alcides Moya on 11-12-2021 Bedside Glucose Comment Glu2: cleaned meter [facility] Estimated GFR () > 60 mL/Min [facility] Comment on above: GFR estimated refere nce range: According to KDOQI guidelines, <60 ml/min/1.73m2 is sufficient to diagnose a patient with chronic kidney disease. Pharmacy Creatinine Clearance (Chem 64.44 [facility] Platelet mean volume Auto (B ld) [Entitic vol]Ordered By: Alcides Moya on 11-12-2021 Platelet mean volume (Bld) [Entitic vol] 8.6 fL 6.3-10.7 [facility] Platelet poor plasma interna tional normalized ratio (INR) by coagulation assay (relatOrdered By: Alcides Moya on 11-12-2021 INR Coag (PPP) [Relative time] 3.0 {INR} [facility] Comment on above: INR Therapeutic Rang e A) Pre- and Peroperative OAT started two weeks before surgery. NOT HIP SURGERY: 1.5 - 2.5 HIP SURGERY: 2 - 3 B) Primary and secondary prevention of venous THROMBOSIS: 2 - 3 C) Active venous thrombosis, pulmonary embolism and prevention of recurrent venous thrombosis: 2 - 3 D) Prevention of arterial thromboembolism including patients with mechanical heart valves: 3 - 4.5 Platelets Auto (Bld) [#/Vol] Ordered By: Alcides Moya on 11-12-2021 Platelets (Bld) [#/Vol] 241 10*3/uL 150-450 [facility] Prealbuminon 11-12-2021 Prealbumin [Mass/Vol] 21.7 mg/dL Normal 18.0-38.0 [facility] Comment on above: Result Comment: PERF ORMED BY: [facility] [address] [place] [address] PATHOLOGIST TRACK [employer] REPAIR SUPERVISOR FLIP GERMAN M.D. Performed By: #### G LUCOLLIN #### Point of Care testing , Protein [Mass/volume] in Ser um or PlasmaOrdered By: Alcides Moya on 11-12-2021 Protein [Mass/Vol] 6.8 g/dL 6.1-7.9 [facility] Prothrombin Time INRon 11-12 INR Coag (PPP) [Relative time] 3.0 {INR} Normal [facility] Comment on above: Order Comment: List the anticoagulant: COUMADIN/WARFARIN Result Comment: INR Therapeutic Range A) Pre- and Peroperative OAT started two weeks before surgery. NOT HIP SURGERY: 1.5 - 2.5 HIP SURGERY: 2 - 3 B) Primary and secondary prevention of venous THROMBOSIS: 2 - 3 C) Active venous thrombosis, pulmonary embolism and prevention of recurrent venous thrombosis: 2 - 3 D) Prevention of arterial thromboembolism including patients with mechanical heart valves: 3 - 4.5 PERFORMED BY: [facility] [address] [place] [address] PATHOLOGIST TRACK [employer] REPAIR SUPERVISOR FLIP GERMAN M.D. Performed By: #### G LUCOLLIN #### Point of Care testing , PT Coag (PPP) [Time] 34.1 s High 9.0-12.9 [facility] Comment on above: Order Comment: List the anticoagulant: COUMADIN/WARFARIN Performed By: #### G LULS #### Point of Care testing , RBC Auto (Bld) [#/Vol]Ordere d By: Alcides Moya on 11-12-2021 RBC (Bld) [#/Vol] 4.29 10*6/uL 3.60-5.00 [facility] Serum or plasma alanine engel otransferase measurement without P-5'-P (enzymatic activiOrdered By: Alcides Moya on 11-12-2021 ALT No additional P-5'-P [Catalytic activity/Vol] 13 U/L 10-60 [facility] Serum or plasma albumin/glob ulin mass ratioOrdered By: Alcides Moya on 11-12-2021 Albumin/Globulin [Mass ratio] 0.8 {ratio} [facility] Serum or plasma alkaline bouchra sphatase measurement (enzymatic activity/volume)Ordered By: Alcides Moya on 11-12-2021 ALP [Catalytic activity/Vol] 84 U/L 32-92 [facility] Serum or plasma anion gap de terminationOrdered By: Alcides Moya on 11-12-2021 Anion gap [Moles/Vol] 11.9 mmol/L 6.0-15.0 [facility] Serum or plasma aspartate am inotransferase measurement (enzymatic activity/volume)Ordered By: Alcides Moya on 11-12-2021 AST [Catalytic activity/Vol] 22 U/L 10-42 [facility] Serum or plasma calcium alondra urement (mass/volume)Ordered By: Alcides Moya on 11-12-2021 Calcium [Mass/Vol] 9.2 mg/dL 8.2-10.2 [facility] Serum or plasma chloride link surement (moles/volume)Ordered By: Aclides Moya on 11-12-2021 Chloride [Moles/Vol] 100 mmol/L 95-114 [facility] Serum or plasma glucose alondra urement (mass/volume)Ordered By: Alcides Moya on 11-12-2021 Glucose [Mass/Vol] 130 mg/dL 70-100 [facility] Comment on above: ADA recommended refe rence range Random Glucose Reference Range is dependent on time and content of last meal. Glucose of more than 200 mg/dL in a nonstressed, ambulatory subject supports the diagnosis of Diabetes Mellitus. Serum or plasma potassium me asurement (moles/volume)Ordered By: Alcides Moya on 11-12-2021 Potassium [Moles/Vol] 3.9 mmol/L 3.5-5.1 [facility] Serum or plasma prealbumin m easurement (mass/volume)Ordered By: Alcides Moya on 11-12-2021 Prealbumin [Mass/Vol] 21.7 mg/dL 18.0-38.0 [facility] Serum or plasma sodium measu rement (moles/volume)Ordered By: Alcides Moya on 11-12-2021 Sodium [Moles/Vol] 139 mmol/L 136-146 [facility] Serum or plasma total biliru bin measurement (mass/volume)Ordered By: Alcides Moya on 11-12-2021 Bilirubin [Mass/Vol] 0.8 mg/dL 0.3-1.2 [facility] Serum or plasma total carbon dioxide measurement (moles/volume)Ordered By: Alcides Moya on 11-12-2021 CO2 [Moles/Vol] 31.0 mmol/L 22.0-30.0 [facility] Serum or plasma urea nitroge n measurement (mass/volume)Ordered By: Alcides Moya on 11-12-2021 Urea nitrogen [Mass/Vol] 8 mg/dL 9-23 [facility] Glucose Glucometer (BldC) [M ass/Vol]Ordered By: Gaye Claire on 11-11-2021 Glucose [Mass/Vol] 127 mg/dL [facility] Comment on above: Random Glucose Refer ence Range is dependent on time and content of last meal. Glucose of more than 200 mg/dL in a nonstressed, ambulatory subject supports the diagnosis of Diabetes Mellitus. Glucose Poct Glucometerson 0 11-11-2021 Glucose [Mass/Vol] 168 mg/dL Normal [facility] Comment on above: Result Comment: [place] Glucose Reference Range is dependent on time and content of last meal. Glucose of more than 200 mg/dL in a nonstressed, ambulatory subject supports the diagnosis of Diabetes Mellitus. PERFORMED BY: [address] [place] [address] PATHOLOGIST TRACK [employer]WAY REPAIR SUPERVISOR FLIP GERMAN M.D. Performed By: #### G LULS #### Point of Care testing , Commemt1 Glu2: Cleaned Meter [facility] Comment on above: Result Comment: PERF ORMED BY: [address] [place] [address] PATHOLOGIST TRACK [employer]WAY REPAIR SUPERVISOR FLIP GERMAN M.D. Performed By: #### G LULS #### Point of Care testing , Glucose [Mass/Vol] 127 mg/dL Normal [facility] Comment on above: Result Comment: [place] Glucose Reference Range is dependent on time and content of last meal. Glucose of more than 200 mg/dL in a nonstressed, ambulatory subject supports the diagnosis of Diabetes Mellitus. Performed By: #### G LULS #### Point of Care testing , Commemt1 Glu2: Cleaned Meter [facility] Comment on above: Result Comment: PERF ORMED BY: [address] [place] [address] PATHOLOGIST TRACK [employer]WAY REPAIR SUPERVISOR FLIP GERMAN M.D. Performed By: #### G LULS ####Point of Care testing, Glucose [Mass/Vol] 228 mg/dL Normal [facility] Comment on above: Result Comment: [place] Glucose Reference Range is dependent on time and content of last meal. Glucose of more than 200 mg/dL in a nonstressed, ambulatory subject supports the diagnosis of Diabetes Mellitus. Performed By: #### G LULS ####Point of Care testing, Commemt1 Glu2: Cleaned Meter [facility] Comment on above: Result Comment: PERF ORMED BY: [address] [place] [address] PATHOLOGIST TRACK [employer] REPAIR SUPERVISOR FLIP GERMAN M.D. Performed By: #### G LULS #### Point of Care testing , Glucose [Mass/Vol] 150 mg/dL Normal [facility] Comment on above: Result Comment: [place] Glucose Reference Range is dependent on time and content of last meal. Glucose of more than 200 mg/dL in a nonstressed, ambulatory subject supports the diagnosis of Diabetes Mellitus. Performed By: #### G IAN #### Point of Care testing , Laboratory - CoagulationOrde red By: Enrrique Mota on 11-11-2021 PT Coag (PPP) [Time] 31.5 s 9.0-12.9 [facility] No Panel InformationOrdered By: Gaye Claire on 11-11-2021 Bedside Glucose Comment Glu2: cleaned meter [facility] Platelet poor plasma interna tional normalized ratio (INR) by coagulation assay (relatOrdered By: Enrrique Mota on 11-11-2021 INR Coag (PPP) [Relative time] 2.7 {INR} [facility] Comment on above: INR Therapeutic Rang e A) Pre- and Peroperative OAT started two weeks before surgery. NOT HIP SURGERY: 1.5 - 2.5 HIP SURGERY: 2 - 3 B) Primary and secondary prevention of venous THROMBOSIS: 2 - 3 C) Active venous thrombosis, pulmonary embolism and prevention of recurrent venous thrombosis: 2 - 3 D) Prevention of arterial thromboembolism including patients with mechanical heart valves: 3 - 4.5 INR Therapeutic Rang e A) Pre- and Peroperative OAT started two weeks before surgery. NOT HIP SURGERY: 1.5 - 2.5 HIP SURGERY: 2 - 3B) Primary and secondary prevention of venous THROMBOSIS: 2 - 3C) Active venous thrombosis, pulmonary embolismand prevention of recurrent venous thrombosis: 2 - 3D) Prevention of arterial thromboembolismincluding patients with mechanical heart valves: 3 - 4.5 Prothrombin Time INRon 11-11 INR Coag (PPP) [Relative time] 2.7 {INR} Normal [facility] Comment on above: Result Comment: INR Therapeutic Range A) Pre- and Peroperative OAT started two weeks before surgery. NOT HIP SURGERY: 1.5 - 2.5 HIP SURGERY: 2 - 3 B) Primary and secondary prevention of venous THROMBOSIS: 2 - 3 C) Active venous thrombosis, pulmonary embolism and prevention of recurrent venous thrombosis: 2 - 3 D) Prevention of arterial thromboembolism including patients with mechanical heart valves: 3 - 4.5 PERFORMED BY: [facility] [address] [place] [id number] PATHOLOGIST TRACK [employer] REPAIR SUPERVISOR FLIP GERMAN M.D. Performed By: #### G LULS #### Point of Care testing , PT Coag (PPP) [Time] 31.5 s High 9.0-12.9 [facility] Comment on above: Performed By: #### G LULS #### Point of Care testing , Glucose Poct Glucometerson 0 11-10-2021 Glucose [Mass/Vol] 124 mg/dL Normal [facility] Comment on above: Result Comment: [facility] Glucose Reference Range is dependent on time and content of last meal. Glucose of more than 200 mg/dL in a nonstressed, ambulatory subject supports the diagnosis of Diabetes Mellitus. PERFORMED BY: [place] [address] [place] [address] PATHOLOGIST TRACK [employer]WAY REPAIR SUPERVISOR FLIP GERMAN M.D. Performed By: #### G LULS #### Point of Care testing , Commemt1 Glu2: Cleaned Meter [facility] Comment on above: Result Comment: PERF ORMED BY: [address] [place] [address] PATHOLOGIST TRACK [employer]WAY REPAIR SUPERVISOR FLIP GERMAN M.D. Performed By: #### G LULS #### Point of Care testing , Glucose [Mass/Vol] 143 mg/dL Normal [facility] Comment on above: Result Comment: [place] Glucose Reference Range is dependent on time and content of last meal. Glucose of more than 200 mg/dL in a nonstressed, ambulatory subject supports the diagnosis of Diabetes Mellitus. Performed By: #### G LULS #### Point of Care testing , Commemt1 Glu2: Cleaned Meter Normal [facility] Comment on above: Result Comment: PERF ORMED BY: [facility] [address] [place] [place] [id number] PATHOLOGIST TRACK [employer] REPAIR SUPERVISOR FLIP GERMAN M.D. Performed By: #### G LULS #### Point of Care testing , Glucose [Mass/Vol] 190 mg/dL Normal [facility] Comment on above: Result Comment: [place] Glucose Reference Range is dependent on time and content of last meal. Glucose of more than 200 mg/dL in a nonstressed, ambulatory subject supports the diagnosis of Diabetes Mellitus. Performed By: #### G LULS #### Point of Care testing , Commemt1 Glu2: Cleaned Meter Normal [facility] Comment on above: Result Comment: PERF ORMED BY: [address] [place] [address] PATHOLOGIST TRACK [employer]WAY REPAIR SUPERVISOR FLIP GERMAN M.D. Performed By: #### G LULS #### Point of Care testing , Glucose [Mass/Vol] 136 mg/dL Normal [facility] Comment on above: Result Comment: [facility] Glucose Reference Range is dependent on time and content of last meal. Glucose of more than 200 mg/dL in a nonstressed, ambulatory subject supports the diagnosis of Diabetes Mellitus. Performed By: #### G LULS #### Point of Care testing , Prothrombin Time INRon 11-10 INR Coag (PPP) [Relative time] 2.5 {INR} Normal [facility] Comment on above: Result Comment: INR Therapeutic Range A) Pre- and Peroperative OAT started two weeks before surgery. NOT HIP SURGERY: 1.5 - 2.5 HIP SURGERY: 2 - 3 B) Primary and secondary prevention of venous THROMBOSIS: 2 - 3 C) Active venous thrombosis, pulmonary embolism and prevention of recurrent venous thrombosis: 2 - 3 D) Prevention of arterial thromboembolism including patients with mechanical heart valves: 3 - 4.5 PERFORMED BY: [address] [place] [address] PATHOLOGIST TRACK [employer]WAY REPAIR SUPERVISOR FLIP GERMAN M.D. Performed By: #### G LULS #### Point of Care testing , PT Coag (PPP) [Time] 28.4 s High 9.0-12.9 [facility] Comment on above: Performed By: #### G LULS #### Point of Care testing , Glucose Poct Glucometerson 0 11-09-2021 Commemt1 Glu2: Cleaned Meter Normal [facility] Comment on above: Result Comment: PERF ORMED BY: [address] [place] [address] PATHOLOGIST TRACK [employer]WAY REPAIR SUPERVISOR FLIP GERMAN M.D. Performed By: #### G LULS #### Point of Care testing , Glucose [Mass/Vol] 165 mg/dL Normal [facility] Comment on above: Result Comment: [place] Glucose Reference Range is dependent on time and content of last meal. Glucose of more than 200 mg/dL in a nonstressed, ambulatory subject supports the diagnosis of Diabetes Mellitus. Performed By: #### G LULS #### Point of Care testing , Commemt1 Glu2: Cleaned Meter Normal [facility] Comment on above: Result Comment: PERF ORMED BY: [address] [place] [address] PATHOLOGIST TRACK [employer]WAY REPAIR SUPERVISOR FLIP GERMAN M.D. Performed By: #### G LULS #### Point of Care testing , Glucose [Mass/Vol] 156 mg/dL Normal [facility] Comment on above: Result Comment: [place] Glucose Reference Range is dependent on time and content of last meal. Glucose of more than 200 mg/dL in a nonstressed, ambulatory subject supports the diagnosis of Diabetes Mellitus. Performed By: #### G LULS #### Point of Care testing , Glucose [Mass/Vol] 257 mg/dL Normal [facility] Comment on above: Result Comment: [place] Glucose Reference Range is dependent on time and content of last meal. Glucose of more than 200 mg/dL in a nonstressed, ambulatory subject supports the diagnosis of Diabetes Mellitus. PERFORMED BY: [address] [place] [address] PATHOLOGIST TRACK [employer]WAY REPAIR SUPERVISOR FLIP GERMAN M.D. Performed By: #### G LULS #### Point of Care testing , Glucose [Mass/Vol] 142 mg/dL Normal [facility] Comment on above: Result Comment: [place] Glucose Reference Range is dependent on time and content of last meal. Glucose of more than 200 mg/dL in a nonstressed, ambulatory subject supports the diagnosis of Diabetes Mellitus. PERFORMED BY: [address] [place] [address] PATHOLOGIST TRACK [employer]WAY REPAIR SUPERVISOR FLIP GERMAN M.D. Performed By: #### G LULS #### Point of Care testing , Prothrombin Time INRon 11-09 INR Coag (PPP) [Relative time] 2.7 {INR} Normal [facility] Comment on above: Result Comment: INR Therapeutic Range A) Pre- and Peroperative OAT started two weeks before surgery. NOT HIP SURGERY: 1.5 - 2.5 HIP SURGERY: 2 - 3 B) Primary and secondary prevention of venous THROMBOSIS: 2 - 3 C) Active venous thrombosis, pulmonary embolism and prevention of recurrent venous thrombosis: 2 - 3 D) Prevention of arterial thromboembolism including patients with mechanical heart valves: 3 - 4.5 PERFORMED BY: [address] [place] [address] PATHOLOGIST TRACK [employer]WAY REPAIR SUPERVISOR FLIP GERMAN M.D. Performed By: #### G LULS #### Point of Care testing , PT Coag (PPP) [Time] 30.5 s High 9.0-12.9 [facility] Comment on above: Performed By: #### G LULS #### Point of Care testing , Glucose Poct Glucometerson 0 11-08-2021 Glucose [Mass/Vol] 180 mg/dL Normal [facility] Comment on above: Result Comment: [place] Glucose Reference Range is dependent on time and content of last meal. Glucose of more than 200 mg/dL in a nonstressed, ambulatory subject supports the diagnosis of Diabetes Mellitus. PERFORMED BY: [address] [place] [id number] PATHOLOGIST TRACK [employer]WAY REPAIR SUPERVISOR FLIP GERMAN M.D. Performed By: #### G LULS #### Point of Care testing , Glucose [Mass/Vol] 161 mg/dL Normal [facility] Comment on above: Result Comment: [place] Glucose Reference Range is dependent on time and content of last meal. Glucose of more than 200 mg/dL in a nonstressed, ambulatory subject supports the diagnosis of Diabetes Mellitus. PERFORMED BY: [address] [place] [id number] PATHOLOGIST TRACK SUBWAY REPAIR SUPERVISOR FLIP GERMAN M.D. Performed By: #### G LULS #### Point of Care testing , Glucose [Mass/Vol] 193 mg/dL Normal [facility] Comment on above: Result Comment: [place] Glucose Reference Range is dependent on time and content of last meal. Glucose of more than 200 mg/dL in a nonstressed, ambulatory subject supports the diagnosis of Diabetes Mellitus. PERFORMED BY: [address] [place] [id number] PATHOLOGIST TRACK SUBWAY REPAIR SUPERVISOR FLIP GERMAN M.D. Performed By: #### G LULS #### Point of Care testing , Commemt1 Glu2: Cleaned Meter Normal [facility] Comment on above: Result Comment: PERF ORMED BY: [address] [place] [address] PATHOLOGIST TRACK SUBWAY REPAIR SUPERVISOR FLIP GERMAN M.D. Performed By: #### G LULS #### Point of Care testing , Glucose [Mass/Vol] 155 mg/dL Normal [facility] Comment on above: Result Comment: [place] Glucose Reference Range is dependent on time and content of last meal. Glucose of more than 200 mg/dL in a nonstressed, ambulatory subject supports the diagnosis of Diabetes Mellitus. Performed By: #### G LULS #### Point of Care testing , Prothrombin Time INRon 11-08 INR Coag (PPP) [Relative time] 2.9 {INR} Normal [facility] Comment on above: Result Comment: INR Therapeutic Range A) Pre- and Peroperative OAT started two weeks before surgery. NOT HIP SURGERY: 1.5 - 2.5 HIP SURGERY: 2 - 3 B) Primary and secondary prevention of venous THROMBOSIS: 2 - 3 C) Active venous thrombosis, pulmonary embolism and prevention of recurrent venous thrombosis: 2 - 3 D) Prevention of arterial thromboembolism including patients with mechanical heart valves: 3 - 4.5 PERFORMED BY: [address] [place] [address] PATHOLOGIST TRACK [employer]WAY REPAIR SUPERVISOR FLIP GERMAN M.D. Performed By: #### G LULS #### Point of Care testing , PT Coag (PPP) [Time] 33.0 s High 9.0-12.9 [facility] Comment on above: Performed By: #### G LULS #### Point of Care testing , Glucose Poct Glucometerson 0 11-07-2021 Commemt1 Glu2: Cleaned Meter [facility] Comment on above: Result Comment: PERF ORMED BY: [address] [place] [address] PATHOLOGIST TRACK [employer]WAY REPAIR SUPERVISOR FLIP GERMAN M.D. Performed By: #### G LULS #### Point of Care testing , Glucose [Mass/Vol] 183 mg/dL Normal [facility] Comment on above: Result Comment: [place] Glucose Reference Range is dependent on time and content of last meal. Glucose of more than 200 mg/dL in a nonstressed, ambulatory subject supports the diagnosis of Diabetes Mellitus. Performed By: #### G LULS #### Point of Care testing , Commemt1 Glu2: Cleaned Meter [facility] Comment on above: Result Comment: PERF ORMED BY: [address] [place] [address] PATHOLOGIST TRACK [employer]WAY REPAIR SUPERVISOR FLIP GERMAN M.D. Performed By: #### G LULS #### Point of Care testing , Glucose [Mass/Vol] 154 mg/dL Normal [facility] Comment on above: Result Comment: [facility] Glucose Reference Range is dependent on time and content of last meal. Glucose of more than 200 mg/dL in a nonstressed, ambulatory subject supports the diagnosis of Diabetes Mellitus. Performed By: #### G LULS #### Point of Care testing , Commemt1 Glu2: Cleaned Meter [facility] Comment on above: Result Comment: PERF ORMED BY: [facility] [address] [place] [address] PATHOLOGIST TRACK [employer]WAY REPAIR SUPERVISOR FLIP GERMAN M.D. Performed By: #### G LULS #### Point of Care testing , Glucose [Mass/Vol] 339 mg/dL Normal [facility] Comment on above: Result Comment: [place] Glucose Reference Range is dependent on time and content of last meal. Glucose of more than 200 mg/dL in a nonstressed, ambulatory subject supports the diagnosis of Diabetes Mellitus. Performed By: #### G LULS #### Point of Care testing , Glucose [Mass/Vol] 146 mg/dL Normal [facility] Comment on above: Result Comment: [facility] Glucose Reference Range is dependent on time and content of last meal. Glucose of more than 200 mg/dL in a nonstressed, ambulatory subject supports the diagnosis of Diabetes Mellitus. PERFORMED BY: [facility] [address] [place] [address] PATHOLOGIST TRACK SUBWAY REPAIR SUPERVISOR FLIP GERMAN M.D. Performed By: #### G LULS #### Point of Care testing , Prothrombin Time INRon 11-07 INR Coag (PPP) [Relative time] 2.0 {INR} Normal [facility] Comment on above: Result Comment: INR Therapeutic Range A) Pre- and Peroperative OAT started two weeks before surgery. NOT HIP SURGERY: 1.5 - 2.5 HIP SURGERY: 2 - 3 B) Primary and secondary prevention of venous THROMBOSIS: 2 - 3 C) Active venous thrombosis, pulmonary embolism and prevention of recurrent venous thrombosis: 2 - 3 D) Prevention of arterial thromboembolism including patients with mechanical heart valves: 3 - 4.5 PERFORMED BY: [facility] [address] [place] [address] PATHOLOGIST TRACK [employer]WAY REPAIR SUPERVISOR FLIP GERMAN M.D. Performed By: #### G LULS #### Point of Care testing , PT Coag (PPP) [Time] 22.8 s High 9.0-12.9 [facility] Comment on above: Performed By: #### G LULS #### Point of Care testing , Basic Metabolic Panelon 10-13 Calcium [Mass/Vol] 9.1 mg/dL Normal 8.2-10.2 [facility] Comment on above: Performed By: #### G LULS #### Point of Care testing , Chloride [Moles/Vol] 98 mmol/L Normal 95-114 [facility] Comment on above: Performed By: #### G LULS #### Point of Care testing , CO2 [Moles/Vol] 33.3 mmol/L High 22.0-30.0 [facility] Comment on above: Performed By: #### G LULS #### Point of Care testing , Creatinine [Mass/Vol] 0.63 mg/dL Normal 0.44-1.03 [facility] Comment on above: Performed By: #### G LULS #### Point of Care testing , Creatinine Clr Calc Pharmacy 65.08 [facility] Comment on above: Result Comment: PERF ORMED BY: [facility] [address] [place] [address] PATHOLOGIST TRACK [employer]WAY REPAIR SUPERVISOR FLIP GERMAN M.D. Performed By: #### G LULS #### Point of Care testing , Estimated GFR ( Trista > 60 [facility] Comment on above: Result Comment: GFR estimated reference range: According to KDOQI guidelines, <60 ml/min/1.73m2 is sufficient to diagnose a patient with chronic kidney disease. Performed By: #### G LULS #### Point of Care testing , Estimated GFR (Non- Am > 60 [facility] Comment on above: Performed By: #### G LULS #### Point of Care testing , Glucose [Mass/Vol] 159 mg/dL High 70-100 [facility] Comment on above: Result Comment: [place] Glucose Reference Range is dependent on time and content of last meal. Glucose of more than 200 mg/dL in a nonstressed, ambulatory subject supports the diagnosis of Diabetes Mellitus. ADA recommended reference range Performed By: #### G LULS #### Point of Care testing , Potassium [Moles/Vol] 3.3 mmol/L Low 3.5-5.1 [facility] Comment on above: Performed By: #### G LULS #### Point of Care testing , Sodium [Moles/Vol] 140 mmol/L Normal 136-146 [facility] Comment on above: Performed By: #### G LULS #### Point of Care testing , Urea nitrogen [Mass/Vol] 6 mg/dL Low 9-23 [facility] Comment on above: Performed By: #### G LULS #### Point of Care testing , Basophils Auto (Bld) [#/Vol] Ordered By: Faustina Barr on 11-06-2021 Basophils (Bld) [#/Vol] 0.0 10*3/uL 0.0-0.2 [facility] Basophils/100 WBC Auto (Bld) Ordered By: Faustina Barr on 11-06-2021 Basophils/100 WBC (Bld) 0.5 % . [facility] Blood hemoglobin measurement (mass/volume)Ordered By: Faustina Barr on 11-06-2021 Hemoglobin (Bld) [Mass/Vol] 11.8 g/dL 11.8-15.4 [facility] Blood leukocytes automated c ount (number/volume)Ordered By: Faustina Barr on 11-06-2021 WBC (Bld) [#/Vol] 5.6 10*3/uL 4.5-11.0 [facility] Complete Blood Count Auto Di ffon 11-06-2021 Basophils (Bld) [#/Vol] 0.0 10*3/uL Normal 0.0-0.2 [facility] Comment on above: Result Comment: PERF ORMED BY: [facility] [address] [place] [address] PATHOLOGIST TRACK [employer]WAY REPAIR SUPERVISOR FLIP GERMAN M.D. Performed By: #### G LULS #### Point of Care testing , Basophils/100 WBC (Bld) 0.5 % Normal . [facility] Comment on above: Performed By: #### G LULS #### Point of Care testing , Eosinophils (Bld) [#/Vol] 0.2 10*3/uL Normal 0.0-0.45 [facility] Comment on above: Performed By: #### G LULS #### Point of Care testing , Eosinophils/100 WBC (Bld) 3.9 % Normal . [facility] Comment on above: Performed By: #### G LULS #### Point of Care testing , Erythrocyte distribution width (RBC) [Ratio] 16.6 % High 11.9-15.3 [facility] Comment on above: Performed By: #### G IAN #### Point of Care testing , Hematocrit (Bld) [Volume fraction] 37.0 % Normal 34.0-46.4 [facility] Comment on above: Performed By: #### G GELACIOLS #### Point of Care testing , Hemoglobin (Bld) [Mass/Vol] 11.8 g/dL Normal 11.8-15.4 [facility] Comment on above: Performed By: #### G GELACIOLS #### Point of Care testing , Lymphocytes (Bld) [#/Vol] 2.1 10*3/uL Normal 1.00-4.8 [facility] Comment on above: Performed By: #### G GELACIOLS #### Point of Care testing , Lymphocytes/100 WBC (Bld) 37.6 % Normal . [facility] Comment on above: Performed By: #### Ezra BRIZUELALS #### Point of Care testing , MCH (RBC) [Entitic mass] 28.8 pg Normal 24.7-34.3 [facility] Comment on above: Performed By: #### G IAN #### Point of Care testing , MCV (RBC) [Entitic vol] 90.5 fL Normal 80-100 [facility] Comment on above: Performed By: #### G GELACIOLS #### Point of Care testing , Mean Corpuscular HGB Conc 31.9 g/dL Low 32.0-35.0 [facility] Comment on above: Performed By: #### G GELACIOLS #### Point of Care testing , Monocytes (Bld) [#/Vol] 0.7 10*3/uL Normal 0.0-0.8 [facility] Comment on above: Performed By: #### G GELACIOLS #### Point of Care testing , Monocytes/100 WBC (Bld) 12.7 % Normal . [facility] Comment on above: Performed By: #### G GELACIOLS #### Point of Care testing , Neutrophils (Bld) [#/Vol] 2.5 10*3/uL Normal 1.8-7.7 [facility] Comment on above: Performed By: #### G LULS #### Point of Care testing , Neutrophils/100 WBC (Bld) 45.3 % Normal . [facility] Comment on above: Performed By: #### G LULS #### Point of Care testing , Nucleated RBC/100 WBC (Bld) [Ratio] 0.1 % Normal 0-0.5 [facility] Comment on above: Performed By: #### G LULS #### Point of Care testing , Platelet mean volume (Bld) [Entitic vol] 8.3 fL Normal 6.3-10.7 [facility] Comment on above: Performed By: #### G GELACIOLS #### Point of Care testing , Platelets (Bld) [#/Vol] 298 10*3/uL Normal 150-450 [facility] Comment on above: Performed By: #### G GELACIOLS #### Point of Care testing , RBC (Bld) [#/Vol] 4.09 10*6/uL Normal 3.60-5.00 [facility] Comment on above: Performed By: #### G LULS #### Point of Care testing , WBC (Bld) [#/Vol] 5.6 10*3/uL Normal 4.5-11.0 [facility] Comment on above: Performed By: #### G LULS #### Point of Care testing , Creatinine and Glomerular fi ltration rate.predicted panel (S/P/Bld)Ordered By: Faustina Barr on 11-06-2021 Creatinine [Mass/Vol] 0.63 mg/dL 0.44-1.03 [facility] Eosinophils Auto (Bld) [#/Vo l]Ordered By: Faustina Barr on 11-06-2021 Eosinophils (Bld) [#/Vol] 0.2 10*3/uL 0.0-0.45 [facility] Eosinophils/100 WBC Auto (Bl d)Ordered By: Faustina Barr on 11-06-2021 Eosinophils/100 WBC (Bld) 3.9 % . [facility] Erythrocyte distribution wid th Auto (RBC) [Ratio]Ordered By: Faustina Barr on 11-06-2021 Erythrocyte distribution width (RBC) [Ratio] 16.6 % 11.9-15.3 [facility] Estimated glomerular filtrat ion rate (GFR) non- AmericanOrdered By: Faustina Barr on 11-06-2021 GFR/1.73 sq M.predicted among non-blacks MDRD (S/P/Bld) [Vol rate/Area] > 60 mL/Min [facility] Glucose Poct Glucometerson 0 11-06-2021 Commemt1 Glu2: Cleaned Meter [facility] Comment on above: Result Comment: PERF ORMED BY: [address] [place] [address] PATHOLOGIST TRACK SUBWAY REPAIR SUPERVISOR FLIP GERMAN M.D. Performed By: #### G LULS #### Point of Care testing , Glucose [Mass/Vol] 175 mg/dL Normal [facility] Comment on above: Result Comment: [facility] Glucose Reference Range is dependent on time and content of last meal. Glucose of more than 200 mg/dL in a nonstressed, ambulatory subject supports the diagnosis of Diabetes Mellitus. Performed By: #### G LULS #### Point of Care testing , Commemt1 Glu2: Cleaned Meter [facility] Comment on above: Result Comment: PERF ORMED BY: [facility] [address] [place] [address] PATHOLOGIST TRACK SUBWAY REPAIR SUPERVISOR FLIP GERMAN M.D. Performed By: #### G LULS #### Point of Care testing , Glucose [Mass/Vol] 141 mg/dL Normal [facility] Comment on above: Result Comment: [facility] Glucose Reference Range is dependent on time and content of last meal. Glucose of more than 200 mg/dL in a nonstressed, ambulatory subject supports the diagnosis of Diabetes Mellitus. Performed By: #### G LULS #### Point of Care testing , Glucose [Mass/Vol] 171 mg/dL Normal [facility] Comment on above: Result Comment: [facility] Glucose Reference Range is dependent on time and content of last meal. Glucose of more than 200 mg/dL in a nonstressed, ambulatory subject supports the diagnosis of Diabetes Mellitus. PERFORMED BY: [facility] [address] [place] [address] PATHOLOGIST TRACK [employer]WAY REPAIR SUPERVISOR FLIP GERMAN M.D. Performed By: #### G LULS #### Point of Care testing , Glucose [Mass/Vol] 139 mg/dL Normal [facility] Comment on above: Result Comment: [facility] Glucose Reference Range is dependent on time and content of last meal. Glucose of more than 200 mg/dL in a nonstressed, ambulatory subject supports the diagnosis of Diabetes Mellitus. PERFORMED BY: [facility] [address] [place] [address] PATHOLOGIST TRACK SUBWAY REPAIR SUPERVISOR FLIP GERMAN M.D. Performed By: #### G LUCOLLIN #### Point of Care testing , Hematocrit Auto (Bld) [Volum e fraction]Ordered By: Faustina Barr on 11-06-2021 Hematocrit (Bld) [Volume fraction] 37.0 % 34.0-46.4 [facility] - Hematology and Cell countsOrdered By: Faustina Barr on 11-06-2021 Nucleated RBC/100 WBC (Bld) [Ratio] 0.1 % 0-0.5 [facility] Lymphocytes Auto (Bld) [#/Vo l]Ordered By: Faustina Barr on 11-06-2021 Lymphocytes (Bld) [#/Vol] 2.1 10*3/uL 1.00-4.8 [facility] Lymphocytes/100 WBC Auto (Bl d)Ordered By: Faustina Barr on 11-06-2021 Lymphocytes/100 WBC (Bld) 37.6 % . [facility] MCH Auto (RBC) [Entitic mass ]Ordered By: Faustina Barr on 11-06-2021 MCH (RBC) [Entitic mass] 28.8 pg 24.7-34.3 [facility] MCHC Auto (RBC) [Mass/Vol]Or dered By: Faustina Barr on 11-06-2021 MCHC (RBC) [Mass/Vol] 31.9 g/dL 32.0-35.0 [facility] MCV Auto (RBC) [Entitic vol] Ordered By: Faustina Barr on 11-06-2021 MCV (RBC) [Entitic vol] 90.5 fL 80-100 [facility] Monocytes Auto (Bld) [#/Vol] Ordered By: Faustina Barr on 11-06-2021 Monocytes (Bld) [#/Vol] 0.7 10*3/uL 0.0-0.8 [facility] Monocytes/100 WBC Auto (Bld) Ordered By: Faustina Barr on 11-06-2021 Monocytes/100 WBC (Bld) 12.7 % . [facility] Neutrophils Auto (Bld) [#/Vo l]Ordered By: Faustina Barr on 11-06-2021 Neutrophils (Bld) [#/Vol] 2.5 10*3/uL 1.8-7.7 [facility] Neutrophils/100 WBC Auto (Bl d)Ordered By: Faustina Barr on 11-06-2021 Neutrophils/100 WBC (Bld) 45.3 % . [facility] No Panel InformationOrdered By: Faustina Barr on 11-06-2021 Estimated GFR () > 60 mL/Min [facility] Comment on above: GFR estimated refere nce range: According to KDOQI guidelines, <60 ml/min/1.73m2 is sufficient to diagnose a patient with chronic kidney disease. Pharmacy Creatinine Clearance (Chem 65.08 [facility] Platelet mean volume Auto (B ld) [Entitic vol]Ordered By: Faustina Barr on 11-06-2021 Platelet mean volume (Bld) [Entitic vol] 8.3 fL 6.3-10.7 [facility] Platelets Auto (Bld) [#/Vol] Ordered By: Faustina Brar on 11-06-2021 Platelets (Bld) [#/Vol] 298 10*3/uL 150-450 [facility] Prothrombin Time INRon 11-06 INR Coag (PPP) [Relative time] 1.3 {INR} Normal [facility] Comment on above: Result Comment: INR Therapeutic Range A) Pre- and Peroperative OAT started two weeks before surgery. NOT HIP SURGERY: 1.5 - 2.5 HIP SURGERY: 2 - 3 B) Primary and secondary prevention of venous THROMBOSIS: 2 - 3 C) Active venous thrombosis, pulmonary embolism and prevention of recurrent venous thrombosis: 2 - 3 D) Prevention of arterial thromboembolism including patients with mechanical heart valves: 3 - 4.5 PERFORMED BY: [facility] [place] [address] PATHOLOGIST TRACK [employer] REPAIR SUPERVISOR FLIP GERMAN M.D. Performed By: #### G LULS #### Point of Care testing , PT Coag (PPP) [Time] 14.4 s High 9.0-12.9 [facility] Comment on above: Performed By: #### G LULS #### Point of Care testing , RBC Auto (Bld) [#/Vol]Ordere d By: Faustina Barr on 11-06-2021 RBC (Bld) [#/Vol] 4.09 10*6/uL 3.60-5.00 [facility] Serum or plasma calcium alondra urement (mass/volume)Ordered By: Faustina Barr on 11-06-2021 Calcium [Mass/Vol] 9.1 mg/dL 8.2-10.2 [facility] Serum or plasma chloride link surement (moles/volume)Ordered By: Faustina Barr on 11-06-2021 Chloride [Moles/Vol] 98 mmol/L 95-114 [facility] Serum or plasma glucose alondra urement (mass/volume)Ordered By: Faustina Barr on 11-06-2021 Glucose [Mass/Vol] 159 mg/dL 70-100 [facility] Comment on above: ADA recommended refe rence range Random Glucose Reference Range is dependent on time and content of last meal. Glucose of more than 200 mg/dL in a nonstressed, ambulatory subject supports the diagnosis of Diabetes Mellitus. ADA recommended refe rence rangeRandom Glucose Reference Range is dependent on time and content of last meal. Glucose of more than 200 mg/dL in a nonstressed, ambulatory subject supports the diagnosis of Diabetes Mellitus. Serum or plasma potassium me asurement (moles/volume)Ordered By: Faustina Barr on 11-06-2021 Potassium [Moles/Vol] 3.3 mmol/L 3.5-5.1 [facility] Serum or plasma sodium measu rement (moles/volume)Ordered By: Faustina Barr on 11-06-2021 Sodium [Moles/Vol] 140 mmol/L 136-146 [facility] Serum or plasma total carbon dioxide measurement (moles/volume)Ordered By: Faustina Barr on 11-06-2021 CO2 [Moles/Vol] 33.3 mmol/L 22.0-30.0 [facility] Serum or plasma urea nitroge n measurement (mass/volume)Ordered By: Faustina Barr on 11-06-2021 Urea nitrogen [Mass/Vol] 6 mg/dL 12-04 [facility] Urine culture routineOrdered By: Marvin Peter on 11-06-2021 Bacteria identified Cx Nom (U) Escherichia coli [facility] Glucose Poct Glucometerson 0 11-05-2021 Commemt1 Glu2: Cleaned Meter Normal [facility] Comment on above: Result Comment: PERF ORMED BY: [place] [address] PATHOLOGIST TRACK [employer] REPAIR SUPERVISOR FLIP GERMAN M.D. Performed By: #### G LULS #### Point of Care testing , Glucose [Mass/Vol] 202 mg/dL Normal [facility] Comment on above: Result Comment: [place] Glucose Reference Range is dependent on time and content of last meal. Glucose of more than 200 mg/dL in a nonstressed, ambulatory subject supports the diagnosis of Diabetes Mellitus. Performed By: #### G LULS #### Point of Care testing , MR lumbar spine wo conon MR lumbar spine wo con [facility] [address] MRI Report Signed Patient: Alton Barker MR#: [id number] 987 : 1940 Acct:[id number] Age/Sex: 81 / F ADM Date: 11/04/21 Loc: 3T Room: [address] [place] [address] Type: ADM INOo Attending Dr: Enrrique Mota MD Copies to: Enrrique Mota MD Ordering Provider: Enrrique Mota MD Date of Service: 11/05/21 MR/MR lumbar spine wo con: incontinence, weakness, L1 fx MR lumbar spine wo con 11/04/2021 8:49 PM SIGNS AND SYMPTOMS: Low back pain, recent fall PROTOCOL: Multiplanar multisequence MR images of the lumbar spine were obtained without IV contrast COMPARISON: CT 11/05/2019 FINDINGS: The bones of the lumbar spine are in anatomic alignment. There is a compression deformity at L1 with approximately 20% loss of vertebral body height. There is corresponding marrow edema with edema extending into the adjacent paraspinous musculature. There is disc desiccation mild disc height loss throughout, greatest at L4-5. The conus terminates at the superior endplate of the L1 vertebral body level. No epidural or paraspinous fluid collection is appreciated. There is a simple cyst in the left renal cortex requiring no further follow-up. At T12-L1: There is a normal disc, central canal, and neural foramen. At L1-L2: There is a mild broad-based disc bulge with facet hypertrophy. There is mild spinal canal narrowing with mild bilateral neural foraminal narrowing. There is no epidural or paraspinous fluid collection. At L2-L3: There is a broad-based disc bulge with facet hypertrophy. There is mild spinal canal narrowing with no significant neural foraminal narrowing. At L3-L4: There is a broad-based disc bulge with facet hypertrophy. There is mild spinal canal narrowing with moderate right neural foraminal narrowing. At L4-L5: There is a circumferential disc bulge with facet hypertrophy. There is mild spinal canal stenosis with moderate to severe left and mild right neural foraminal narrowing. There is mass effect on the exiting left L4 nerve roots. At L5-S1: There is a broad-based disc bulge with endplate osteophyte formation and facet hypertrophy. There is moderate left and moderate neural foraminal narrowing with mild spinal canal narrowing. MR/MR lumbar spine wo con IMPRESSION: There is a compression deformity at L1 with approximately 20% loss of vertebral body height. There is corresponding marrow edema with edema extending into the adjacent paraspinous musculature. No epidural or paraspinous fluid collection. At L4-L5: There is a circumferential disc bulge with facet hypertrophy. There is mild spinal canal stenosis with moderate to severe left and mild right neural foraminal narrowing. There is mass effect on the exiting left L4 nerve roots. Additional but lesser degrees of spinal canal and neural foraminal narrowing are noted, as above. Impression dictated by: Vijay Holden M.D.11/05/2021 12:14 PM Dictation Location: [place] [address] Transcribed By: [facility] 11/05/21 1214 Dictated By: Vijay Holden II, MD 11/05/21 1209 Signed By: 11/05/21 1214 Normal [facility] Prothrombin Time INRon 11-05 INR Coag (PPP) [Relative time] 1.8 {INR} [facility] Comment on above: Result Comment: INR Therapeutic Range A) Pre- and Peroperative OAT started two weeks before surgery. NOT HIP SURGERY: 1.5 - 2.5 HIP SURGERY: 2 - 3 B) Primary and secondary prevention of venous THROMBOSIS: 2 - 3 C) Active venous thrombosis, pulmonary embolism and prevention of recurrent venous thrombosis: 2 - 3 D) Prevention of arterial thromboembolism including patients with mechanical heart valves: 3 - 4.5 PERFORMED BY: [address] [place] [address] PATHOLOGIST TRACK SUBWAY REPAIR SUPERVISOR FLIP GERMAN M.D. Performed By: #### G IAN #### Point of Care testing , PT Coag (PPP) [Time] 20.0 s High 9.0-12.9 [facility] Comment on above: Performed By: #### G IAN #### Point of Care testing , Albumin [Mass/volume] in Ser um or PlasmaOrdered By: Marvin Peter on 11-04-2021 Albumin [Mass/Vol] 3.4 g/dL 3.2-5.5 [facility] Automated erythrocytes count in urine sediment (number/area)Ordered By: Marvin Peter on 11-04-2021 RBC Auto (Urine sed) [#/Area] Innumerable [HPF] 0-4 [facility] Automated leukocytes count i n urine sediment (number/area)Ordered By: Marvin Peter on 11-04-2021 WBC Auto (Urine sed) [#/Area] 50-100 [HPF] 0-4 [facility] Automated urine hyaline cast s count (number/volume)Ordered By: Marvin Peter on 11-04-2021 Hyaline casts Auto (U) [#/Vol] Rare [LPF] 0-1 [facility] Bilirubin Test strip Ql (U)O rdered By: Marvin Peter on 11-04-2021 Bilirubin Ql (U) Negative Negative [facility] COVID CepheidOrdered By: Artie Peter on 11-04-2021 SARS-CoV-2 (COVID-19) Ab IA Ql Negative Negative [facility] Comment on above: This is a duplicate Cepheid Xpert Xpress CoV-2/Flu/RSV Plus RNA by RT-PCR result to be used for statistical tracking purpose only. SARS-CoV-2 (COVID-19) RNA PIPE+probe Ql (Unsp spec) [facility] COVID-19 / Flu A/B / RSV PCR on 11-04-2021 SARS-CoV-2 (COVID-19) RNA PIPE+probe Ql (Unsp spec) COVID-19 Cepheid Result Negative for SARS-CoV-2 RNA by RT-PCR Flu A Cepheid Result Negative for Flu A RNA by RT-PCR Flu B Cepheid Result Negative for Flu B RNA by RT-PCR RSV Cepheid Result Negative for RSV RNA by RT-PCR COVID19 Blank Space -- Reference: Negative COVID19 Blank Space -- Cepheid Disclaimer The Cepheid Xpert Xpress CoV-2/Flu/RSV Plus has Cepheid Disclaimer not been FDA cleared or approved; this test has Cepheid Disclaimer been authorized by FDA under an EUA for use by Cepheid Disclaimer authorized laboratories; this test has been Cepheid Disclaimer authorized only for the simultaneous qualitative Cepheid Disclaimer detection and differentiation of nucleic acids from Cepheid Disclaimer SARS-CoV-2, influenza A, influenza B, and Cepheid Disclaimer respiratory syncytial virus (RSV), and not for any Cepheid Disclaimer other viruses or pathogens; and this test is only Cepheid Disclaimer authorized for the duration of the declaration that Cepheid Disclaimer circumstances exist justifying the authorization of Cepheid Disclaimer emergency use of in vitro diagnostic tests for Cepheid Disclaimer detection and/or diagnosis of COVID-19 under Cepheid Disclaimer Section 564(b)(1) of the Act, 21 U.S.C. 360bbb- Cepheid Disclaimer 3(b)(1), unless the authorization is terminated or Cepheid Disclaimer revoked sooner. PERFORMED BY: [facility] [place] [address] PATHOLOGIST TRACK SUBWAY REPAIR SUPERVISOR FLIP GERMAN M.D. [facility] Comment on above: Performed By: #### G LULS #### Point of Care testing , COVID-19 Antigenon 2 COVID-19 Antigen Healthcare Worker?: N Reference Range: Negative Negative results, from patients with symptom onset beyond five days, should be treated as presumptive and confirmation with a molecular assay, if necessary, for patient management, may be performed. Negative results do not rule out COVID-19 and should not be used as the sole basis for treatment or patient management decisions, including infection control decisions. Negative results should be considered in the context of a patient's recent exposures, history and the presence of clinical signs and symptoms consistent with COVID-19. The Evita SARS Antigen [facility] does not differentiate between SARS-CoV and SARS-CoV-2. This test was developed and its performance characteristic determined by [employer] and validated at [facility]. This test has not been FDA cleared or approved. This test has been authorized by FDA under an Emergency Use Authorization (EUA). This test has been validated in accordance with the FDA's Guidance Document (Policy for Diagnostics Testing in Laboratories Certified to Perform High Complexity Testing under CLIA prior to Emergency Use Authorization for Coronavirus Disease-2019 during the Public Health Emergency) issued on June 14, 2019. This test is only authorized for the duration of time the declaration that circumstances exist justifying the authorization of the emergency use of in vitro diagnostic tests for detection of SARS-CoV-2 virus and/or diagnosis of COVID-19 infection under section 564(b)(1) of the Act, 21 U.S.C. 360bbb-3(b)(1), unless the authorization is terminated or revoked sooner. SARS-CoV+SARS-CoV-2 (COVID-19) Ag [Presence] in Respiratory specimen by Rapid immunoassay Negative for SARS Antigen by [facility] PERFORMED BY: [place] [address] PATHOLOGIST TRACK SUBWAY REPAIR SUPERVISOR FLIP GERMAN M.D. Normal [facility] Comment on above: Performed By: #### G LULS #### Point of Care testing , COVID-19 SOFIAOrdered By: Sina Peter on 11-04-2021 SARS-CoV+SARS-CoV-2 (COVID-19) Ag IA.rapid Ql (Resp) Negative Negative [facility] Comment on above: This is a duplicate Evita SARS Antigen ([facility]) result to be used for statistical tracking purpose only. CT cervical spine wo conon 0 11-04-2021 CT cervical spine wo [facility] [address] [place] [id number] CT Scan Report Signed Patient: Alton Barker MR#: [id number] 987 : 1940 Acct:[id number] Age/Sex: 81 / F ADM Date: 11/04/21 Loc: ER Room: Type: [facility] ER Attending Dr: Copies to: Marvin Peter DO Ordering Provider: Marvin Peter DO Date of Service: 11/04/21 CT/CT cervical spine wo con: fall CT cervical spine withoutcontrast TECHNIQUE: Axial imaging with 2-D and 3-D reconstruction. The CT exam was performed using one or more the following dose reduction techniques: Automated exposure control, adjustment of the MA and/or Kv according to patient size, or use of the iterative reconstruction technique. COMPARISON:None HISTORY: Fell. Neck pain Cervical lordosis is normal. The craniocervical junction is unremarkable. No acute cervical spine fracture identified. No listhesis is seen. The facets are in adequate alignment. No abnormal increased density of the spinal canal seen. No prevertebral soft tissue abnormality identified. No skull base abnormality seen. Lung apices are unremarkable. No soft tissue abnormality seen. No airway abnormality seen. Mild spondylosis and moderate facet degeneration. Atherosclerosis of the carotid bifurcations. CT/CT cervical spine wo con IMPRESSION: No acute process Impression dictated by: Baltazar Saucedo M.D.11/04/2021 5:55 PM Dictation Location: [place] [address] Transcribed By: [facility] 11/04/211754 Dictated By: Baltazar Saucedo DO 11/04/211752 Signed By: 11/04/211754 Normal [facility] CT head/brain wo conon 11-04 CT head/brain wo con [facility] [address] [place] [address] [place] [address] CT Scan Report Signed Patient: Alton Barker MR#: [id number] 987 : 1940 Acct:[id number] Age/Sex: 81 / F ADM Date: 11/04/21 Loc: ER Room: Type: [facility] ER Attending Dr: Copies to: Marvin Peter DO Ordering Provider: Marvin Peter DO Date of Service: 11/04/21 CT/CT head/brain wo con: fall Unenhanced head CT TECHNIQUE: Contiguous axial imaging of the head. The CT exam was performed using one or more the following dose reduction techniques: Automated exposure control, adjustment of the MA and/or Kv according to patient size, or use of the iterative reconstruction technique. COMPARISON:10/19/21 HISTORY:Fell. Posterior back pain. The ventricles are normal in size and position. Adequate mendez-white matter differentiation identified. No intracranial hemorrhage, mass effect or herniation is identified. No recent vascular distribution infarction is seen. No abnormal extra-axial fluid collections identified. Sinuses, orbits and mastoid air cells are unremarkable. Bony structures are intact. Atherosclerosis of carotid siphons identified. CT/CT head/brain wo con IMPRESSION: No acute intracranial findings. Impression dictated by: Baltazar Saucedo M.D.11/04/2021 5:52 PM Dictation Location: [facility] Transcribed By: SHERINE 11/04/211751 Dictated By: Baltazar Saucedo DO 11/04/211747 Signed By: 11/04/211751 [facility] CT lumbar spine wo conon CT lumbar spine wo con [facility] [place] [address] CT Scan Report Signed Patient: Alton Barker MR#: [id number] 987 : 1940 Acct:[id number] Age/Sex: 81 / F ADM Date: 11/04/21 Loc: ER Room: Type: [facility] ER Attending Dr: Copies to: Marvin Peter DO Ordering Provider: Marvin Peter DO Date of Service: 11/04/21 CT/CT lumbar spine wo con: fall CT LUMBAR SPINE WITHOUT CONTRAST TECHNIQUE: Axial acquisition of the lumbar spine obtained with the sagittal and coronal reconstructed imaging.The CT exam was performed using one or more the following dose reduction techniques: Automated exposure control, adjustment of the MA and/or Kv according to patient size, or use of the iterative reconstruction technique. HISTORY: Fell. The mid back pain COMPARISON: None FINDINGS: The lumbar lordosis is normal. L1 inferior endplate compression fracture appears recent. Chronic endplate changes present. The pedicles are intact. There is no jumped, perched or acute subluxed facets. The lamina and spinous processes are intact. No spinal canal hemorrhage identified. No acute soft tissue process identified. Degenerative changes: Advanced L4-5 spondylosis. Mild remaining lumbar and lower thoracic spondylosis. Lower lumbar hypertrophic facet changes. Atherosclerosis present. CT/CT lumbar spine wo con IMPRESSION: Recent appearing L1 inferior endplate compression burst type fracture with minor retropulsion of fracture fragments.. Impression dictated by: Baltazar Saucedo M.D.11/04/2021 6:06 PM Dictation Location: [facility] Transcribed By: [facility] 11/04/211805 Dictated By: Baltazar Saucedo DO 11/04/211800 Signed By: 11/04/211805 [facility] CT thoracic spine wo conon 0 11-04-2021 CT thoracic spine wo con [facility] [address] [place] [address] [place] [address] CT Scan Report Signed Patient: Alton Barker MR#: [id number] 987 : 1940 Acct:[id number] Age/Sex: 81 / F ADM Date: 11/04/21 Loc: ER Room: Type: [facility] ER Attending Dr: Copies to: Marvin Peter DO Ordering Provider: Marvin Peter DO Date of Service: 11/04/21 CT/CT thoracic spine wo con: fall CT THORACIC SPINE WITHOUT CONTRAST TECHNIQUE: The CT exam was performed using one or more the following dose reduction techniques: Automated exposure control, adjustment of the MA and/or Kv according to patient size, or use of the iterative reconstruction technique. HISTORY:Fell. Posterior back pain. The thoracic kyphosis is preserved. Thoracic hyperostosis identified. Diffuse osteopenia. Atherosclerosis of the aorta. Dependent basal atelectasis. No hydronephrosis. No acute compression deformity of vertebral bodies identified. The disc spaces of the thoracic spine are maintained. The facets are in adequate alignment without vertebral displacement. There is no identification of acute hemorrhage within the bony spinal canal or other acute process with CT imaging. No paraspinal abnormality is identified. The visualized lung crain are unremarkable. The visualized aorta is unremarkable. No obstructive uropathy identified. CT/CT thoracic spine wo con IMPRESSION: No acute bony findings. Hyperostosis. Impression dictated by: Baltazar Saucedo M.D.11/04/2021 6:00 PM Dictation Location: [place] [address] Transcribed By: [facility] 11/04/21 1800 Dictated By: Baltazar Saucedo DO 11/04/21 1758 Signed By: 11/04/21 1800 Normal [facility] Casts typing in urine sedime nt by light microscopyOrdered By: Marvin Peter on 11-04-2021 Casts LM Nom (Urine sed) None seen [LPF] None Seen [facility] Cepheid COVID PCR Negativeon 11-04-2021 SARS-CoV-2 (COVID-19) RNA PIPE+probe Ql (Unsp spec) Negative Normal Negative [facility] Comment on above: Result Comment: This is a duplicate Cepheid Xpert Xpress CoV-2/Flu/RSV Plus RNA by RT-PCR result to be used for statistical tracking purpose only. PERFORMED BY: [facility] [address] [place] [address] PATHOLOGIST TRACK [employer]WAY REPAIR SUPERVISOR FLIP GERMAN M.D. Performed By: #### G IAN #### Point of Care testing , Color Auto (U)Ordered By: Sina Peter on 11-04-2021 Color (U) Yellow Yellow [facility] Complete Blood Count Auto Di ffon 11-04-2021 Basophils (Bld) [#/Vol] 0.0 10*3/uL Normal 0.0-0.2 [facility] Comment on above: Result Comment: PERF ORMED BY: [address] [place] [address] PATHOLOGIST TRACK [employer]WAY REPAIR SUPERVISOR FLIP GERMAN M.D. Performed By: #### C MP, CBC ####[address] Basophils/100 WBC (Bld) 0.6 % Normal . [facility] Comment on above: Performed By: #### C MP, CBC ####[address] Eosinophils (Bld) [#/Vol] 0.1 10*3/uL Normal 0.0-0.45 [facility] Comment on above: Performed By: #### C MP, CBC ####[address] Eosinophils/100 WBC (Bld) 1.7 % Normal . [facility] Comment on above: Performed By: #### C MP, CBC ####[address] Erythrocyte distribution width (RBC) [Ratio] 16.3 % High 11.9-15.3 [facility] Comment on above: Performed By: #### C MP, CBC ####[address] Hematocrit (Bld) [Volume fraction] 39.2 % Normal 34.0-46.4 [facility] Comment on above: Performed By: #### C MP, CBC ####[address] Hemoglobin (Bld) [Mass/Vol] 12.8 g/dL Normal 11.8-15.4 [facility] Comment on above: Performed By: #### C MP, CBC ####[address] Lymphocytes (Bld) [#/Vol] 1.6 10*3/uL Normal 1.00-4.8 [facility] Comment on above: Performed By: #### C MP, CBC ####[address] Lymphocytes/100 WBC (Bld) 20.3 % Normal . [facility] Comment on above: Performed By: #### C MP, CBC ####[address] MCH (RBC) [Entitic mass] 29.2 pg Normal 24.7-34.3 [facility] Comment on above: Performed By: #### C MP, CBC ####[address] MCV (RBC) [Entitic vol] 89.5 fL Normal 80-100 [facility] Comment on above: Performed By: #### C MP, CBC ####[address] Mean Corpuscular HGB Conc 32.6 g/dL Normal 32.0-35.0 [facility] Comment on above: Performed By: #### C MP, CBC ####[address] Monocytes (Bld) [#/Vol] 0.8 10*3/uL Normal 0.0-0.8 [facility] Comment on above: Performed By: #### C MP, CBC ####[address] Monocytes/100 WBC (Bld) 9.7 % Normal . [facility] Comment on above: Performed By: #### C MP, CBC ####[place] [id number] [facility] Neutrophils (Bld) [#/Vol] 5.3 10*3/uL Normal 1.8-7.7 [facility] Comment on above: Performed By: #### C MP, CBC ####[place] [id number] [facility] Neutrophils/100 WBC (Bld) 67.7 % Normal . [facility] Comment on above: Performed By: #### C MP, CBC ####[place] [id number] [facility] Nucleated RBC/100 WBC (Bld) [Ratio] 0.1 % Normal 0-0.5 [facility] Comment on above: Performed By: #### C MP, CBC ####[place] [id number] [facility] Platelet mean volume (Bld) [Entitic vol] 7.9 fL Normal 6.3-10.7 [facility] Comment on above: Performed By: #### C MP, CBC ####[place] [id number] [facility] Platelets (Bld) [#/Vol] 318 10*3/uL Normal 150-450 [facility] Comment on above: Performed By: #### C MP, CBC ####[place] [id number] [facility] RBC (Bld) [#/Vol] 4.38 10*6/uL Normal 3.60-5.00 [facility] Comment on above: Performed By: #### C MP, CBC ####[place] [id number] [facility] WBC (Bld) [#/Vol] 7.9 10*3/uL Normal 4.5-11.0 [facility] Comment on above: Performed By: #### C MP, CBC ####[place] [id number] [facility] Comprehensive Metabolic Pane loco 11-04-2021 Albumin [Mass/Vol] 3.4 g/dL Normal 3.2-5.5 [facility] Comment on above: Performed By: #### C MP, CBC ####[address] [address] [facility] Albumin/Globulin [Mass ratio] 0.9 {ratio} Normal [facility] Comment on above: Performed By: #### C MP, CBC ####[address] [address] [facility] ALP [Catalytic activity/Vol] 80 U/L Normal 32-92 [facility] Comment on above: Performed By: #### C MP, CBC ####[address] [address] [facility] ALT [Catalytic activity/Vol] 7 U/L Low 10-60 [facility] Comment on above: Performed By: #### C MP, CBC ####[address] [address] [facility] AST [Catalytic activity/Vol] 16 U/L Normal 10-42 [facility] Comment on above: Performed By: #### C MP, CBC ####[address] [address] [facility] Bilirubin [Mass/Vol] 1.2 mg/dL Normal 0.3-1.2 [facility] Comment on above: Performed By: #### C MP, CBC ####[address] [address] [facility] Calcium [Mass/Vol] 9.7 mg/dL Normal 8.2-10.2 [facility] Comment on above: Performed By: #### C MP, CBC ####[address] [address] [facility] Chloride [Moles/Vol] 95 mmol/L Normal 95-114 [facility] Comment on above: Performed By: #### C MP, CBC ####[address] [address] [facility] CO2 [Moles/Vol] 30.4 mmol/L High 22.0-30.0 [facility] Comment on above: Performed By: #### C MP, CBC ####[place] [id number] [facility] Creatinine [Mass/Vol] 0.61 mg/dL Normal 0.44-1.03 [facility] Comment on above: Performed By: #### C MP, CBC ####[place] [id number] [facility] Creatinine Clr Calc Pharmacy 64.44 [facility] Comment on above: Result Comment: PERF ORMED BY: [facility] [address] [place] [address] PATHOLOGIST TRACK [employer] REPAIR SUPERVISOR FLIP GERMAN M.D. Performed By: #### C MP, CBC ####[place] [id number] [facility] Estimated GFR ( Trista > 60 [facility] Comment on above: Result Comment: GFR estimated reference range: According to KDOQI guidelines, <60 ml/min/1.73m2 is sufficient to diagnose a patient with chronic kidney disease. Performed By: #### C MP, CBC ####[place] [id number] [facility] Estimated GFR (Non- Am > 60 [facility] Comment on above: Performed By: #### C MP, CBC ####[place] [id number] [facility] Globulin (S) [Mass/Vol] 3.7 g/dL [facility] Comment on above: Performed By: #### C MP, CBC ####[place] [id number] [facility] Glucose [Mass/Vol] 131 mg/dL High 70-100 [facility] Comment on above: Result Comment: [place] om Glucose Reference Range is dependent on time and content of last meal. Glucose of more than 200 mg/dL in a nonstressed, ambulatory subject supports the diagnosis of Diabetes Mellitus. ADA recommended reference range Performed By: #### C MP, CBC ####[address] [place] [address] [facility] Potassium [Moles/Vol] 3.8 mmol/L Normal 3.5-5.1 [facility] Comment on above: Performed By: #### C MP, CBC ####[facility] [place] [address] [facility] Protein [Mass/Vol] 7.1 g/dL Normal 6.1-7.9 [facility] Comment on above: Performed By: #### C MP, CBC ####[facility] [place] [address] [facility] Sodium [Moles/Vol] 137 mmol/L Normal 136-146 [facility] Comment on above: Performed By: #### C MP, CBC ####[facility] [place] [id number] [facility] Urea nitrogen [Mass/Vol] 14 mg/dL Normal 9-23 [facility] Comment on above: Performed By: #### C MP, CBC ####[facility] [place] [id number] [facility] Dipstick and Microscopicon 0 11-04-2021 Appearance (U) Cloudy Critically abnormal Clear [facility] Comment on above: Order Comment: Name Collection Type:: Voided Performed By: #### G LULS #### Point of Care testing , Bacteria,Urine 4+ High None Seen [facility] Comment on above: Order Comment: Name Collection Type:: Voided Performed By: #### G LULS #### Point of Care testing , Bilirubin,Urine Negative Normal Negative [facility] Comment on above: Order Comment: Name Collection Type:: Voided Performed By: #### G LULS #### Point of Care testing , Color (U) Yellow Normal Yellow [facility] Comment on above: Order Comment: Name Collection Type:: Voided Performed By: #### G LULS #### Point of Care testing , Glucose Ql (U) Normal Normal Normal [facility] Comment on above: Order Comment: Name Collection Type:: Voided Performed By: #### G LULS #### Point of Care testing , Hyaline Casts,Urine Rare Normal 0-1 [facility] Comment on above: Order Comment: Name Collection Type:: Voided Performed By: #### G LULS #### Point of Care testing , Ketones Ql (U) 1+ High Negative [facility] Comment on above: Order Comment: Name Collection Type:: Voided Performed By: #### G LULS #### Point of Care testing , Leukocyte esterase Test strip Ql (U) 3+ High Negative [facility] Comment on above: Order Comment: Name Collection Type:: Voided Performed By: #### G LULS #### Point of Care testing , Nitrite,Urine Positive [facility] Comment on above: Order Comment: Name Collection Type:: Voided Performed By: #### G LULS #### Point of Care testing , Occult Blood,Urine 3+ High Negative [facility] Comment on above: Order Comment: Name Collection Type:: Voided Result Comment: PERF ORMED BY: [address] [place] [address] PATHOLOGIST TRACK [employer] REPAIR SUPERVISOR FLIP GERMAN M.D. Performed By: #### G LULS #### Point of Care testing , Other Casts,Urine None Seen Normal None Seen [facility] Comment on above: Order Comment: Name Collection Type:: Voided Result Comment: PERF ORMED BY: [address] [place] [address] PATHOLOGIST TRACK [employer] REPAIR SUPERVISOR FLIP GERMAN M.D. Performed By: #### G LULS #### Point of Care testing , pH (U) 5.5 [pH] Normal 5.0-9.0 [facility] Comment on above: Order Comment: Name Collection Type:: Voided Performed By: #### G LULS #### Point of Care testing , Protein (U) [Mass/Vol] 30 mg/dL [facility] Negative [facility] Comment on above: Order Comment: Name Collection Type:: Voided Performed By: #### G LULS #### Point of Care testing , RBC,Urine Innumerable High 0-4 [facility] Comment on above: Order Comment: Name Collection Type:: Voided Performed By: #### G LULS #### Point of Care testing , Specificy Paron,Urine 1.029 Normal 1.001-1.03 0 [facility] Comment on above: Order Comment: Name Collection Type:: Voided Performed By: #### G LULS #### Point of Care testing , Squamous Epithelial Cell,Urine 5-9 High 0-2 [facility] Comment on above: Order Comment: Name Collection Type:: Voided Performed By: #### G LULS #### Point of Care testing , Urobilinogen,Urine Normal Normal Normal [facility] Comment on above: Order Comment: Name Collection Type:: Voided Performed By: #### G LULS #### Point of Care testing , WBC,Urine 50-100 High 0-4 [facility] Comment on above: Order Comment: Name Collection Type:: Voided Performed By: #### G LULS #### Point of Care testing , Globulin Calc (S) [Mass/Vol] Ordered By: Marvin Peter on 11-04-2021 Globulin (S) [Mass/Vol] 3.7 g/dL [facility] Ketones Auto test strip (U) [Mass/Vol]Ordered By: Marvin Peter on 11-04-2021 Ketones (U) [Mass/Vol] 1+ Negative [facility] Nitrite Test strip Ql (U)Ord ered By: Marvin Peter on 11-04-2021 Nitrite Ql (U) Positive Negative [facility] No Panel InformationOrdered By: Enrrique Mota on 11-04-2021 25-Hydroxy Vitamin D Total 71.4 ng/mL 30-100 [facility] Comment on above: VITAMIN D STATUS 25( [place])VITAMIN D RANGE (ng/mL) Deficient <20 Insufficient 20 to <30 Sufficient 30 to 100 Reference: Earl MF,Ken [place], Yoandy PEDERSEN, et al. Evaluation,treatment, and prevention of vitamin D deficiency; an Endocrine Society clinical practice guideline. JCEM. 2010; 96(7):1911-30. VITAMIN D STATUS 25( [place])VITAMIN D RANGE (ng/mL) Deficient <20 Insufficient 20 to <30Sufficient 30 to 100Reference: Earl MF,Ken NC, Yoandy PEDERSEN, et al. Evaluation,treatment, and prevention of vitamin D deficiency; an Endocrine Society clinical practice guideline. JCEM. 2010; 96(7):1911-30. Protein Auto test strip (U) [Mass/Vol]Ordered By: Marvin Peter on 11-04-2021 Protein (U) [Mass/Vol] 30 mg/dL Negative [facility] Protein [Mass/volume] in Ser um or PlasmaOrdered By: Marvin Peter on 11-04-2021 Protein [Mass/Vol] 7.1 g/dL 6.1-7.9 [facility] Prothrombin Time INRon 11-04 INR Coag (PPP) [Relative time] 8.2 {INR} Off scale high [facility] Comment on above: Result Comment: Crit ical value result called at 1936 on 11/04/21 INR Therapeutic Range A) Pre- and Peroperative OAT started two weeks before surgery. NOT HIP SURGERY: 1.5 - 2.5 HIP SURGERY: 2 - 3 B) Primary and secondary prevention of venous THROMBOSIS: 2 - 3 C) Active venous thrombosis, pulmonary embolism and prevention of recurrent venous thrombosis: 2 - 3 D) Prevention of arterial thromboembolism including patients with mechanical heart valves: 3 - 4.5 PERFORMED BY: [address] [place] [address] PATHOLOGIST TRACK [employer]WAY REPAIR SUPERVISOR FLIP GERMAN M.D. Performed By: #### G LULS #### Point of Care testing , PT Coag (PPP) [Time] 96.2 s High 9.0-12.9 [facility] Comment on above: Performed By: #### G LULS #### Point of Care testing , Serum or plasma alanine engel otransferase measurement without P-5'-P (enzymatic activiOrdered By: Marvin Peter on 11-04-2021 ALT No additional P-5'-P [Catalytic activity/Vol] 7 U/L 10-60 [facility] Serum or plasma albumin/glob ulin mass ratioOrdered By: Marvin Peter on 11-04-2021 Albumin/Globulin [Mass ratio] 0.9 {ratio} [facility] Serum or plasma alkaline bouchra sphatase measurement (enzymatic activity/volume)Ordered By: Marvin Peter on 11-04-2021 ALP [Catalytic activity/Vol] 80 U/L 32-92 [facility] Serum or plasma aspartate am inotransferase measurement (enzymatic activity/volume)Ordered By: Marvin Peter on 11-04-2021 AST [Catalytic activity/Vol] 16 U/L 10-42 [facility] Serum or plasma total biliru bin measurement (mass/volume)Ordered By: Marvin Peter on 11-04-2021 Bilirubin [Mass/Vol] 1.2 mg/dL 0.3-1.2 [facility] Evita Ag Negativeon 11-05-19 Evita Ag Negative Negative Normal Negative [facility] Comment on above: Result Comment: This is a duplicate Evita SARS Antigen ([place]) result to be used for statistical tracking purpose only. PERFORMED BY: [facility] [place] [address] PATHOLOGIST TRACK [employer]WAY REPAIR SUPERVISOR FLIP GERMAN M.D. Performed By: #### G LULS #### Point of Care testing , Specific gravity Auto test s trip (U) [Rel density]Ordered By: Marvin Peter on 11-04-2021 Specific gravity (U) [Rel density] 1.029 1.001-1.03 0 [facility] Squamous epithelial cells de tection in urine sediment by light microscopyOrdered By: Marvin Peter on 11-04-2021 Epithelial cells.squamous LM Ql (Urine sed) 5-9 [HPF] 0-2 [facility] TSH DL <= 0.005 mIU/L QnOrde red By: Enrrique Mota on 11-04-2021 TSH Qn 2.09 m[IU]/L 0.45-5.33 [facility] Thyroid Stimulating Hormoneo n 11-04-2021 TSH Qn 2.09 m[IU]/L Normal 0.45-5.33 [facility] Comment on above: Order Comment: Comme nt addon Result Comment: PERF ORMED BY: [facility] [address] [place] [address] PATHOLOGIST TRACK [employer]WAY REPAIR SUPERVISOR FLIP GERMAN M.D. Performed By: #### G IAN #### Point of Care testing , Urine Cultureon 11-04-2021 Bacteria identified Cx Nom (U) ORGANISM: Escherichia coli (O:ESCCOL) [place] Count >100,000 Aerobic JIMMY Charge (NUC86) SUSCEPTIBILITY ORGANISM: O:ESCCOL ANTIBIOTIC INTERPRETATION JIMMY Amikacin S <16 Ampicillin S <8 Ampicillin/Sulbactam S <8/4 Aztreonam S <4 Cefazolin S <2 Cefepime S <2 Ceftazidime S <1 Ceftazidime/Avibactam S <8 Ceftriaxone S <1 Ciprofloxacin S <1 Ertapenem S <0.5 Gentamicin S <4 Levofloxacin S <2 Meropenem S <1 Nitrofurantoin S <32 Piperacillin/Tazobactam S <16 Tetracycline S <4 Tigecycline S <2 Tobramycin S <4 Trimethoprim/Sulfamethoxaz ole S <2/38 S = SUSCEPTIBLE I = INTERMEDIATE R = RESISTANT BLANK = DATA NOT AVAILABLE, OR DRUG NOT ADVISABLE OR TESTED R* = RESISTANCE DUE TO EXTENDED SPECTRUM BETA-LACTAMASES ESBL = EXTENDED SPECTRUM BETA-LACTAMASE TFG = THYMIDINE-DEPENDENT STRAIN SANDIP = BETA-LACTAMASE POSITIVE IB = INDUCIBLE BETA-LACTAMASE. APPEARS IN PLACE OF 'S' WITH SPECIES KNOWN TO POSSESS INDUCIBLE BETA-LACTAMASES. POTENTIALLY THEY MAY BECOME RESISTANT TO ALL B-LACTAM DRUGS. PERFORMED BY: [facility] [address] [place] [address] PATHOLOGIST TRACK [employer]WAY REPAIR SUPERVISOR FLIP GERMAN M.D. Normal [facility] Comment on above: Performed By: #### G IAN #### Point of Care testing , Urine bacteria detection by automated methodOrdered By: Marvin Peter on 11-04-2021 Bacteria Auto Ql (U) 4+ None Seen [facility] Urine clarity by refractomet ry automatedOrdered By: Marvin Peter on 08-24-2022 Clarity Refractometry automated (U) Cloudy Clear [facility] Urine glucose measurement by automated test strip (mass/volume)Ordered By: Marvin Peter on 11-04-2021 Glucose Auto test strip (U) [Mass/Vol] Normal mg/dL Normal [facility] Urine hemoglobin detection b y automated test stripOrdered By: Marvin Peter on 11-04-2021 Hemoglobin Auto test strip Ql (U) 3+ Negative [facility] Urine leukocyte esterase det ection by automated test stripOrdered By: Marvin Peter on 11-04-2021 Leukocyte esterase Auto test strip Ql (U) 3+ Negative [facility] Urobilinogen Auto test strip (U) [Mass/Vol]Ordered By: Marvin Peter on 11-04-2021 Urobilinogen (U) [Mass/Vol] Normal mg/dL Normal [facility] Vitamin D 25 Hydroxy Totalon 11-04-2021 Vitamin D 25 Hydroxy Total 71.4 ng/mL Normal 30-100 [facility] Comment on above: Order Comment: Bobby melendez addon Result Comment: FREDERIC MIN D STATUS 25([place])VITAMIN D RANGE (ng/mL) Deficient <20 Insufficient 20 to <30 Sufficient 30 to 100 Reference: Earl MF,Ken [place], Yoandy PEDERSEN, et al. Evaluation,treatment, and prevention of vitamin D deficiency; an Endocrine Society clinical practice guideline. JCEM. 2010; 96(7):1911-30. PERFORMED BY: [facility] [address] [place] [address] PATHOLOGIST TRACK SUBWAY REPAIR SUPERVISOR FLIP GERMAN M.D. Performed By: #### V [id number] ####[facility] [id number] [place] [address] [facility] pH Auto test strip (U)Ordere d By: Marvin Peter on 11-04-2021 pH (U) 5.5 [pH] 5.0-9.0 [facility] Prothrombin Time INRon 10-22 INR Coag (PPP) [Relative time] 4.5 {INR} [facility] videof.me Other Prothrombin Time INR Nort Interhyp Other CT head/brain wo conon 10-20 CT head/brain wo con [facility] [address] CT Scan Report Signed Patient: Alton Barker MR#: [id number] : 1940 Acct:[id number] Age/Sex: 81 / F ADM Date: 10/19/21 Loc: ER Room: Type: [facility] ER Attending Dr: Copies to: Holger Dorado DO Ordering Provider: Holger Dorado DO Date of Service: 10/19/21 CT/CT head/brain wo con: fall CT head/brain wo con 10/19/2021 8:33 PM SIGNS AND SYMPTOMS: Fall striking right posterior head, headache TECHNIQUE:Multi-detector CT axial slices of the brain were obtained without IV contrast. CT was performed with one or more of the following dose reduction techniques: Automated exposure control, adjustment of the mA and/or kV according to patient size, or use of iterative reconstruction technique. COMPARISON: 01/28/2015 FINDINGS: There is no shift of the midline structures, acute intracranial bleeding, mass effects, or evidence of acute ischemia. Atherosclerotic changes are present in the intravenous segments of the internal carotid arteries. There is mild diffuse age-related cortical atrophy. The ventricular system is normal in size. The brainstem and the cerebellum are unremarkable. The visualized intraorbital contents, the visualized paranasal sinuses, and the infratemporal soft tissues show no acute abnormality. The osseous structures in the skull base and the calvarium show no abnormality. There is a right parietal scalp soft tissue hematoma. CT/CT head/brain wo con IMPRESSION: No acute intracranial pathology. There is a subcutaneous scalp hematoma in the right parietal region. Impression dictated by: Vijay Holden M.D.10/20/2021 8:09 AM Dictation Location: [place] [address] Transcribed By: [facility] 10/20/21808 Dictated By: Vijay Holden II, MD 10/20/21805 Signed By: 10/20/21808 Normal [facility] XR lumbar spine 2-3V*on XR lumbar spine 2-3V* [facility] [address] [place] [address] [place], [place] [id number] XRay Report Signed Patient: Alton Barker MR#: [id number] : 1940 Acct:[id number] Age/Sex: 81 / F ADM Date: 10/19/21 Loc: ER Room: Type: [facility] ER Attending Dr: Copies to: Holger Dorado DO Ordering Provider: Holger Dorado DO Date of Service: 10/19/21 XR/XR lumbar spine 2-3V*: Fall, right back pain XR lumbar spine 2-3V* 10/19/2021 8:33 PM SIGNS AND SYMPTOMS: Fall, right back pain PROTOCOLS: Frontal and lateral radiographs of the lumbar spine COMPARISON: None FINDINGS: There is a mild levoconvex curvature. The bones are otherwise in anatomic alignment. There is no fracture or destructive lesion. There is mild to moderate disc height loss throughout the lumbar spine, greatest at L4-5 and L5-S1. There is accompanying facet hypertrophy. Anterior and lateral osteophyte formation is also noted throughout. The sacrum and sacroiliac joints are normal. Vascular calcifications noted throughout the abdominal aorta and pelvis. Surgical clips are present in the right upper quadrant consistent with prior cholecystectomy. XR/XR lumbar spine 2-3V* IMPRESSION: No fracture or subluxation. There is a mild levoconvex curvature. Moderate multilevel degenerative change is noted, as above. Impression dictated by: Vijay Holden M.D.10/20/2021 8:11 AM Dictation Location: [place] [address] Transcribed By: [facility] 10/20/21 08 Dictated By: Vijay Holden II, MD 10/20/21 0809 Signed By: 10/20/21 0811 Normal [facility] Urine culture routineOrdered By: Sumanth Lowe on 09-30-2021 Bacteria identified Cx Nom (U) Escherichia coli [facility] Prothrombin Time INRon 09-29 INR Coag (PPP) [Relative time] 3.3 {INR} [facility] Interhyp Other Prothrombin Time INR Nort Interhyp Other Automated erythrocytes count in urine sediment (number/area)Ordered By: Sumanth Lowe on 09-28-2021 RBC Auto (Urine sed) [#/Area] 10-19 [HPF] 0-4 [facility] Automated leukocytes count i n urine sediment (number/area)Ordered By: Sumanth Lowe on 09-28-2021 WBC Auto (Urine sed) [#/Area] 20-49 [HPF] 0-4 [facility] Basophils Auto (Bld) [#/Vol] Ordered By: Sumanth Lowe on 09-28-2021 Basophils (Bld) [#/Vol] 0.0 10*3/uL 0.0-0.2 [facility] Basophils/100 WBC Auto (Bld) Ordered By: Sumanth Lowe on 09-28-2021 Basophils/100 WBC (Bld) 0.4 % . [facility] Bilirubin Test strip Ql (U)O rdered By: Sumanth Lowe on 09-28-2021 Bilirubin Ql (U) Negative Negative [facility] Blood hemoglobin measurement (mass/volume)Ordered By: Sumanth Lowe on 09-28-2021 Hemoglobin (Bld) [Mass/Vol] 12.3 g/dL 11.8-15.4 [facility] Blood leukocytes automated c ount (number/volume)Ordered By: Sumanth Lowe on 09-28-2021 WBC (Bld) [#/Vol] 5.1 10*3/uL 4.5-11.0 [facility] Body fluid albumin measureme nt (mass/volume)Ordered By: Sumanth Lowe on 09-28-2021 Albumin (Body fld) [Mass/Vol] 3.3 g/dL 3.2-5.5 [facility] Color Auto (U)Ordered By: Giuseppe Lowe on 09-28-2021 Color (U) Yellow Yellow [facility] Complete Blood Count Auto Di ffon 09-28-2021 Basophils (Bld) [#/Vol] 0.0 10*3/uL Normal 0.0-0.2 [facility] Comment on above: Result Comment: PERF ORMED BY: [facility] [address] [place] [address] PATHOLOGIST TRACK [employer] REPAIR SUPERVISOR FLIP GERMAN M.D. Performed By: #### C BC, CMP ####[place] [address] [place] [id number] [facility] Basophils/100 WBC (Bld) 0.4 % Normal . [facility] Comment on above: Performed By: #### C BC, CMP ####[place] [address] [place] [id number] [facility] Eosinophils (Bld) [#/Vol] 0.0 10*3/uL Normal 0.0-0.45 [facility] Comment on above: Performed By: #### C BC, CMP ####[place] [address] [place] [id number] [facility] Eosinophils/100 WBC (Bld) 0.4 % Normal . [facility] Comment on above: Performed By: #### C BC, CMP ####[address] Erythrocyte distribution width (RBC) [Ratio] 15.9 % High 11.9-15.3 [facility] Comment on above: Performed By: #### C BC, CMP ####[place] [id number] [facility] Hematocrit (Bld) [Volume fraction] 37.5 % Normal 34.0-46.4 [facility] Comment on above: Performed By: #### C BC, CMP ####[place] [id number] [facility] Hemoglobin (Bld) [Mass/Vol] 12.3 g/dL Normal 11.8-15.4 [facility] Comment on above: Performed By: #### C BC, CMP ####[place] [id number] [facility] Lymphocytes (Bld) [#/Vol] 0.8 10*3/uL Low 1.00-4.8 [facility] Comment on above: Performed By: #### C BC, CMP ####[place] [id number] [facility] Lymphocytes/100 WBC (Bld) 16.2 % Normal . [facility] Comment on above: Performed By: #### C BC, CMP ####[place] [id number] [facility] MCH (RBC) [Entitic mass] 29.5 pg Normal 24.7-34.3 [facility] Comment on above: Performed By: #### C BC, CMP ####[place] [id number] [facility] MCV (RBC) [Entitic vol] 90.3 fL Normal 80-100 [facility] Comment on above: Performed By: #### C BC, CMP ####[place] [id number] [facility] Mean Corpuscular HGB Conc 32.7 g/dL Normal 32.0-35.0 [facility] Comment on above: Performed By: #### C BC, CMP ####[address] Monocytes (Bld) [#/Vol] 0.7 10*3/uL Normal 0.0-0.8 [facility] Comment on above: Performed By: #### C BC, CMP ####[place] [id number] [facility] Monocytes/100 WBC (Bld) 13.9 % Normal . [facility] Comment on above: Performed By: #### C BC, CMP ####[place] [id number] [facility] Neutrophils (Bld) [#/Vol] 3.5 10*3/uL Normal 1.8-7.7 [facility] Comment on above: Performed By: #### C BC, CMP ####[place] [id number] [facility] Neutrophils/100 WBC (Bld) 69.1 % Normal . [facility] Comment on above: Performed By: #### C BC, CMP ####[place] [id number] [facility] Nucleated RBC/100 WBC (Bld) [Ratio] 0.0 % Normal 0-0.5 [facility] Comment on above: Performed By: #### C CHEN, CMP ####[place] [id number] [facility] Platelet mean volume (Bld) [Entitic vol] 8.6 fL Normal 6.3-10.7 [facility] Comment on above: Performed By: #### C CHNE, CMP ####[place] [id number] [facility] Platelets (Bld) [#/Vol] 154 10*3/uL Normal 150-450 [facility] Comment on above: Performed By: #### C CHEN, CMP ####[place] [id number] [facility] RBC (Bld) [#/Vol] 4.16 10*6/uL Normal 3.60-5.00 [facility] Comment on above: Performed By: #### C CHEN, CMP ####[place] [id number] [facility] WBC (Bld) [#/Vol] 5.1 10*3/uL Normal 4.5-11.0 [facility] Comment on above: Performed By: #### C CHEN, CMP ####[place] [id number] [facility] Comprehensive Metabolic Pane loco 09-28-2021 Albumin [Mass/Vol] 3.3 g/dL Normal 3.2-5.5 [facility] Comment on above: Performed By: #### C CHEN, CMP ####[place] [id number] [facility] Albumin/Globulin [Mass ratio] 0.9 {ratio} Normal [facility] Comment on above: Performed By: #### C CHEN, CMP ####[place] [id number] [facility] ALP [Catalytic activity/Vol] 51 U/L Normal 32-92 [facility] Comment on above: Performed By: #### C HCEN, CMP ####[place] [id number] [place] ALT [Catalytic activity/Vol] 7 U/L Low 10-60 [facility] Comment on above: Performed By: #### C BC, CMP ####[facility] [place] [address] [facility] AST [Catalytic activity/Vol] 20 U/L Normal 10-42 [facility] Comment on above: Performed By: #### C BC, CMP ####[facility] [address] [place] [address] [facility] Bilirubin [Mass/Vol] 1.0 mg/dL Normal 0.3-1.2 [facility] Comment on above: Performed By: #### C BC, CMP ####[place] [address] [place] [address] [facility] Calcium [Mass/Vol] 8.9 mg/dL Normal 8.2-10.2 [facility] Comment on above: Performed By: #### C BC, CMP ####[address] [address] [place] Chloride [Moles/Vol] 95 mmol/L Normal 95-114 [facility] Comment on above: Performed By: #### C BC, CMP ####[address] [address] [facility] CO2 [Moles/Vol] 29.5 mmol/L Normal 22.0-30.0 [facility] Comment on above: Performed By: #### C BC, CMP ####[address] [address] [facility] Creatinine [Mass/Vol] 0.67 mg/dL Normal 0.44-1.03 [facility] Comment on above: Performed By: #### C BC, CMP ####[place] [address] [place] [address] [place] Creatinine Clr Calc Pharmacy 66.85 Normal [facility] Comment on above: Result Comment: PERF ORMED BY: [facility] [address] [place] [id number] PATHOLOGIST TRACK [employer] REPAIR SUPERVISOR FLIP GERMAN M.D. Performed By: #### C BC, CMP ####[place] [address] [place] [address] [facility] Estimated GFR ( Trista > 60 Normal [facility] Comment on above: Result Comment: GFR estimated reference range: According to KDOQI guidelines, <60 ml/min/1.73m2 is sufficient to diagnose a patient with chronic kidney disease. Performed By: #### C BC, CMP ####[address] [address] [facility] Estimated GFR (Non- Am > 60 Normal [facility] Comment on above: Performed By: #### C BC, CMP ####[address] [address] [facility] Globulin (S) [Mass/Vol] 3.6 g/dL [facility] Comment on above: Performed By: #### C BC, CMP ####[address] [address] [facility] Glucose [Mass/Vol] 146 mg/dL High 70-100 [facility] Comment on above: Result Comment: [place] Glucose Reference Range is dependent on time and content of last meal. Glucose of more than 200 mg/dL in a nonstressed, ambulatory subject supports the diagnosis of Diabetes Mellitus. ADA recommended reference range Performed By: #### C BC, CMP ####[place] [id number] [facility] Potassium [Moles/Vol] 3.5 mmol/L Normal 3.5-5.1 [facility] Comment on above: Performed By: #### C BC, CMP ####[place] [id number] [facility] Protein [Mass/Vol] 6.9 g/dL Normal 6.1-7.9 [facility] Comment on above: Performed By: #### C BC, CMP ####[place] [id number] [facility] Sodium [Moles/Vol] 136 mmol/L Normal 136-146 [facility] Comment on above: Performed By: #### C BC, CMP ####[place] [id number] [place] Urea nitrogen [Mass/Vol] 7 mg/dL Low 9-23 [facility] Comment on above: Performed By: #### C BC, CMP ####[facility] [address] [place] [address] [facility] Creatinine and Glomerular fi ltration rate.predicted panel (S/P/Bld)Ordered By: Sumanth Lowe on 09-28-2021 Creatinine [Mass/Vol] 0.67 mg/dL 0.44-1.03 [facility] Dipstick and Microscopicon 0 09-28-2021 Appearance (U) Cloudy Critically abnormal Clear [facility] Comment on above: Order Comment: Name Collection Type:: Clean-Voided Midstream Performed By: #### G LULS #### Point of Care testing , Bacteria,Urine 3+ High None Seen [facility] Comment on above: Order Comment: Name Collection Type:: Clean-Voided Midstream Performed By: #### G LULS #### Point of Care testing , Bilirubin,Urine Negative Normal Negative [facility] Comment on above: Order Comment: Name Collection Type:: Clean-Voided Midstream Performed By: #### G LULS #### Point of Care testing , Color (U) Yellow Normal Yellow [facility] Comment on above: Order Comment: Name Collection Type:: Clean-Voided Midstream Performed By: #### G LULS #### Point of Care testing , Glucose Ql (U) Normal Normal Normal [facility] Comment on above: Order Comment: Name Collection Type:: Clean-Voided Midstream Performed By: #### G LULS #### Point of Care testing , Hyaline Casts,Urine 0-8 Normal 0-8 [facility] Comment on above: Order Comment: Name Collection Type:: Clean-Voided Midstream Performed By: #### G LULS #### Point of Care testing , Ketones Ql (U) 2+ High Negative [facility] Comment on above: Order Comment: Name Collection Type:: Clean-Voided Midstream Performed By: #### G LULS #### Point of Care testing , Leukocyte esterase Test strip Ql (U) 2+ High Negative [facility] Comment on above: Order Comment: Name Collection Type:: Clean-Voided Midstream Performed By: #### G LULS #### Point of Care testing , Nitrite,Urine Positive High Negative [facility] Comment on above: Order Comment: Name Collection Type:: Clean-Voided Midstream Performed By: #### G LULS #### Point of Care testing , Occult Blood,Urine 2+ High Negative [facility] Comment on above: Order Comment: Name Collection Type:: Clean-Voided Midstream Result Comment: PERF ORMED BY: [facility] [address] [place] [address] PATHOLOGIST TRACK [employer] REPAIR SUPERVISOR FLIP GERMAN M.D. Performed By: #### G LULS #### Point of Care testing , pH (U) 6.5 [pH] Normal 5.0-9.0 [facility] Comment on above: Order Comment: Name Collection Type:: Clean-Voided Midstream Performed By: #### G LULS #### Point of Care testing , Protein,Urine Negative Normal Negative [facility] Comment on above: Order Comment: Name Collection Type:: Clean-Voided Midstream Performed By: #### G LULS #### Point of Care testing , RBC,Urine 10-19 High 0-4 [facility] Comment on above: Order Comment: Name Collection Type:: Clean-Voided Midstream Performed By: #### G LULS #### Point of Care testing , Specificy Paron,Urine 1.013 Normal 1.001-1.03 0 [facility] Comment on above: Order Comment: Name Collection Type:: Clean-Voided Midstream Performed By: #### G LULS #### Point of Care testing , Squamous Epithelial Cell,Urine None Seen Normal 0-2 [facility] Comment on above: Order Comment: Name Collection Type:: Clean-Voided Midstream Performed By: #### G LULS #### Point of Care testing , Urobilinogen,Urine Normal Normal Normal [facility] Comment on above: Order Comment: Name Collection Type:: Clean-Voided Midstream Performed By: #### G LULS #### Point of Care testing , WBC,Urine 20-49 High 0-4 [facility] Comment on above: Order Comment: Name Collection Type:: Clean-Voided Midstream Performed By: #### G LULS #### Point of Care testing , Yeast,Urine None Seen Normal None Seen [facility] Comment on above: Order Comment: Name Collection Type:: Clean-Voided Midstream Result Comment: PERF ORMED BY: [place] [address] PATHOLOGIST TRACK [employer]WAY REPAIR SUPERVISOR FLIP GERMAN M.D. Performed By: #### G LULS #### Point of Care testing , ECG 12 lead ECGon 09-28-2021 ECG 12 lead ECG [facility] [address] [place] [address] [place] [address] Electrocardiograph Report Signed Patient: Alton Barker MR#: [id number] 987 : 1940 Acct:[id number] Age/Sex: 81 / F ADM Date: 09/27/21 Loc: ER Room: Type: [facility] ER Attending Dr: Ordering Provider: Sumanth Lowe DO Date of Service: 09/28/21 ECG/ECG 12 lead ECG: Altered Mental Status Copies to: Test Reason : Blood Pressure : 131/061 mmHG Vent. Rate : 086 BPM Atrial Rate : 086 BPM P-R Int : 130 ms QRS Dur : 068 ms QT Int : 362 ms P-R-T Axes : 049 032 048 degrees QTc Int : 433 ms Normal sinus rhythm Normal ECG When compared with ECG of 19-APR-2008 13:30, No significant change was found Confirmed by SUMANTH LOWE DO ([id number]) on 09/28/2021 6:01:33 AM Referred By: Electronically Signed By:SUMANTH LOWE DO Transcribed By: MUS Signed By Sumanth Lowe DO 0601 Normal [facility] Eosinophils Auto (Bld) [#/Vo l]Ordered By: Sumanth Lowe on 09-28-2021 Eosinophils (Bld) [#/Vol] 0.0 10*3/uL 0.0-0.45 [facility] Eosinophils/100 WBC Auto (Bl d)Ordered By: Sumanth Lowe on 09-28-2021 Eosinophils/100 WBC (Bld) 0.4 % . [facility] Erythrocyte distribution wid th Auto (RBC) [Ratio]Ordered By: Sumanth Lowe on 09-28-2021 Erythrocyte distribution width (RBC) [Ratio] 15.9 % 11.9-15.3 [facility] Estimated glomerular filtrat ion rate (GFR) non- AmericanOrdered By: Sumanth Lowe on 09-28-2021 GFR/1.73 sq M.predicted among non-blacks MDRD (S/P/Bld) [Vol rate/Area] > 60 mL/Min [facility] Globulin Calc (S) [Mass/Vol] Ordered By: Sumanth Lowe on 09-28-2021 Globulin (S) [Mass/Vol] 3.6 g/dL [facility] Hematocrit Auto (Bld) [Volum e fraction]Ordered By: Sumanth Lowe on 09-28-2021 Hematocrit (Bld) [Volume fraction] 37.5 % 34.0-46.4 [facility] Ketones Auto test strip (U) [Mass/Vol]Ordered By: Sumanth Lowe on 09-28-2021 Ketones (U) [Mass/Vol] 2+ Negative [facility] Laboratory - Hematology and Cell countsOrdered By: Sumanth Lowe on 09-28-2021 Nucleated RBC/100 WBC (Bld) [Ratio] 0.0 % 0-0.5 [facility] - UrinalysisOrder ed By: Sumanth Lowe on 09-28-2021 Hyaline casts LM Ql (Urine sed) 0-8 [LPF] 0-8 [facility] Lymphocytes Auto (Bld) [#/Vo l]Ordered By: Sumanth Lowe on 09-28-2021 Lymphocytes (Bld) [#/Vol] 0.8 10*3/uL 1.00-4.8 [facility] Lymphocytes/100 WBC Auto (Bl d)Ordered By: Sumanth Lowe on 09-28-2021 Lymphocytes/100 WBC (Bld) 16.2 % . [facility] MCH Auto (RBC) [Entitic mass ]Ordered By: Sumanth Lowe on 09-28-2021 MCH (RBC) [Entitic mass] 29.5 pg 24.7-34.3 [facility] MCHC Auto (RBC) [Mass/Vol]Or dered By: Sumanth Lowe on 09-28-2021 MCHC (RBC) [Mass/Vol] 32.7 g/dL 32.0-35.0 [facility] MCV Auto (RBC) [Entitic vol] Ordered By: Sumnath Lowe on 09-28-2021 MCV (RBC) [Entitic vol] 90.3 fL 80-100 [facility] Monocytes Auto (Bld) [#/Vol] Ordered By: Sumanth Lowe on 09-28-2021 Monocytes (Bld) [#/Vol] 0.7 10*3/uL 0.0-0.8 [facility] Monocytes/100 WBC Auto (Bld) Ordered By: Sumanth Lowe on 09-28-2021 Monocytes/100 WBC (Bld) 13.9 % . [facility] Neutrophils Auto (Bld) [#/Vo l]Ordered By: Sumanth Lowe on 09-28-2021 Neutrophils (Bld) [#/Vol] 3.5 10*3/uL 1.8-7.7 [facility] Neutrophils/100 WBC Auto (Bl d)Ordered By: Sumanth Lowe on 09-28-2021 Neutrophils/100 WBC (Bld) 69.1 % . [facility] Nitrite Test strip Ql (U)Ord ered By: Sumanth Lowe on 09-28-2021 Nitrite Ql (U) Positive Negative [facility] No Panel InformationOrdered By: Sumanth Lowe on 09-28-2021 Estimated GFR () > 60 mL/Min [facility] Comment on above: GFR estimated refere nce range: According to KDOQI guidelines, <60 ml/min/1.73m2 is sufficient to diagnose a patient with chronic kidney disease. Pharmacy Creatinine Clearance (Chem 66.85 [facility] Platelet mean volume Auto (B ld) [Entitic vol]Ordered By: Sumanth Lowe on 09-28-2021 Platelet mean volume (Bld) [Entitic vol] 8.6 fL 6.3-10.7 [facility] Platelets Auto (Bld) [#/Vol] Ordered By: Sumanth Lowe on 09-28-2021 Platelets (Bld) [#/Vol] 154 10*3/uL 150-450 [facility] Protein Auto test strip (U) [Mass/Vol]Ordered By: Sumanth Lowe on 09-28-2021 Protein (U) [Mass/Vol] Negative Negative [facility] Protein [Mass/volume] in Ser um or PlasmaOrdered By: Sumanth Lowe on 09-28-2021 Protein [Mass/Vol] 6.9 g/dL 6.1-7.9 [facility] RBC Auto (Bld) [#/Vol]Ordere d By: Sumanth Lowe on 09-28-2021 RBC (Bld) [#/Vol] 4.16 10*6/uL 3.60-5.00 [facility] Serum or plasma alanine engel otransferase measurement without P-5'-P (enzymatic activiOrdered By: Sumanth Lowe on 09-28-2021 ALT No additional P-5'-P [Catalytic activity/Vol] 7 U/L 10-60 [facility] Serum or plasma albumin/glob ulin mass ratioOrdered By: Sumanth Lowe on 09-28-2021 Albumin/Globulin [Mass ratio] 0.9 {ratio} [facility] Serum or plasma alkaline bouchra sphatase measurement (enzymatic activity/volume)Ordered By: Sumanth Lowe on 09-28-2021 ALP [Catalytic activity/Vol] 51 U/L 32-92 [facility] Serum or plasma aspartate am inotransferase measurement (enzymatic activity/volume)Ordered By: Sumanth Lowe on 09-28-2021 AST [Catalytic activity/Vol] 20 U/L 10-42 [facility] Serum or plasma calcium alondra urement (mass/volume)Ordered By: Sumanth Lowe on 09-28-2021 Calcium [Mass/Vol] 8.9 mg/dL 8.2-10.2 [facility] Serum or plasma chloride link surement (moles/volume)Ordered By: Sumanth Lowe on 09-28-2021 Chloride [Moles/Vol] 95 mmol/L 95-114 [facility] Serum or plasma glucose alondra urement (mass/volume)Ordered By: Sumanth Lowe on 09-28-2021 Glucose [Mass/Vol] 146 mg/dL 70-100 [facility] Comment on above: ADA recommended refe rence range Random Glucose Reference Range is dependent on time and content of last meal. Glucose of more than 200 mg/dL in a nonstressed, ambulatory subject supports the diagnosis of Diabetes Mellitus. Serum or plasma potassium me asurement (moles/volume)Ordered By: Sumanth Lowe on 09-28-2021 Potassium [Moles/Vol] 3.5 mmol/L 3.5-5.1 [facility] Serum or plasma sodium measu rement (moles/volume)Ordered By: Sumanth Lowe on 09-28-2021 Sodium [Moles/Vol] 136 mmol/L 136-146 [facility] Serum or plasma total biliru bin measurement (mass/volume)Ordered By: Sumanth Lowe on 09-28-2021 Bilirubin [Mass/Vol] 1.0 mg/dL 0.3-1.2 [facility] Serum or plasma total carbon dioxide measurement (moles/volume)Ordered By: Sumanth Lowe on 09-28-2021 CO2 [Moles/Vol] 29.5 mmol/L 22.0-30.0 [facility] Serum or plasma urea nitroge n measurement (mass/volume)Ordered By: Sumanth Lowe on 09-28-2021 Urea nitrogen [Mass/Vol] 7 mg/dL 9-23 [facility] Specific gravity Auto test s trip (U) [Rel density]Ordered By: Sumanth Lowe on 09-28-2021 Specific gravity (U) [Rel density] 1.013 1.001-1.03 0 [facility] Squamous epithelial cells de tection in urine sediment by light microscopyOrdered By: Sumanth Lowe on 09-28-2021 Epithelial cells.squamous LM Ql (Urine sed) None seen [HPF] 0-2 [facility] Urine Cultureon 09-28-2021 Bacteria identified Cx Nom (U) ORGANISM: Escherichia coli (O:ESCCOL) [place] Count >100,000 Aerobic JIMMY Charge (NUC86) SUSCEPTIBILITY ORGANISM: O:ESCCOL ANTIBIOTIC INTERPRETATION JIMMY Amikacin S <16 Ampicillin S <8 Ampicillin/Sulbactam S <8/4 Aztreonam S <4 Cefazolin S <2 Cefepime S <2 Ceftazidime S <1 Ceftazidime/Avibactam S <8 Ceftriaxone S <1 Ciprofloxacin S <1 Ertapenem S <0.5 Gentamicin S <4 Levofloxacin S <2 Meropenem S <1 Nitrofurantoin S <32 Piperacillin/Tazobactam S <16 Tetracycline S <4 Tigecycline S <2 Tobramycin S <4 Trimethoprim/Sulfamethoxaz ole S <2/38 S = SUSCEPTIBLE I = INTERMEDIATE R = RESISTANT BLANK = DATA NOT AVAILABLE, OR DRUG NOT ADVISABLE OR TESTED R* = RESISTANCE DUE TO EXTENDED SPECTRUM BETA-LACTAMASES ESBL = EXTENDED SPECTRUM BETA-LACTAMASE TFG = THYMIDINE-DEPENDENT STRAIN SANDIP = BETA-LACTAMASE POSITIVE IB = INDUCIBLE BETA-LACTAMASE. APPEARS IN PLACE OF 'S' WITH SPECIES KNOWN TO POSSESS INDUCIBLE BETA-LACTAMASES. POTENTIALLY THEY MAY BECOME RESISTANT TO ALL B-LACTAM DRUGS. PERFORMED BY: [facility] [address] [place] [address] PATHOLOGIST TRACK [employer] REPAIR SUPERVISOR FLIP GERMAN M.D. [facility] Comment on above: Performed By: #### G IAN #### Point of Care testing , Urine bacteria detection by automated methodOrdered By: Sumanth Lowe on 09-28-2021 Bacteria Auto Ql (U) 3+ None Seen [facility] Urine clarity by refractomet ry automatedOrdered By: Sumanth Lowe on 09-28-2021 Clarity Refractometry automated (U) Cloudy Clear [facility] Urine glucose measurement by automated test strip (mass/volume)Ordered By: Sumanth Lwoe on 09-28-2021 Glucose Auto test strip (U) [Mass/Vol] Normal mg/dL Normal [facility] Urine hemoglobin detection b y automated test stripOrdered By: Sumanth Lowe on 09-28-2021 Hemoglobin Auto test strip Ql (U) 2+ Negative [facility] Urine leukocyte esterase det ection by automated test stripOrdered By: Sumanth Lowe on 09-28-2021 Leukocyte esterase Auto test strip Ql (U) 2+ Negative [facility] Urobilinogen Auto test strip (U) [Mass/Vol]Ordered By: Sumanth Lowe on 09-28-2021 Urobilinogen (U) [Mass/Vol] Normal mg/dL Normal [facility] XR chest 2V*on 09-28-2021 XR chest 2V* [facility] [place] [address] XRay Report Signed Patient: Alton Barker MR#: [id number] 987 : 1940 Acct:[id number] Age/Sex: 81 / F ADM Date: 09/27/21 Loc: ER Room: Type: [facility] ER Attending Dr: Copies to: Sumanth Lowe DO Ordering Provider: Sumanth Lowe DO Date of Service: 09/28/21 XR/XR chest 2V*: Altered Mental Status PA AND LATERAL CHEST: CLINICAL HISTORY: Cough and shortness of breath for one week. COMPARISON: None FINDINGS: Heart appears normal in size. Presumed chronic interstitial changes. No focal consolidation, pneumothorax, pleural effusion or free air. Osseous structures demonstrate degenerative change. XR/XR chest 2V* IMPRESSION: PRESUMED CHRONIC INTERSTITIAL CHANGES. NO ACUTE PROCESS IS SEEN. Impression dictated by: Alcides Malin Jr., D.OJoann09/28/2021 9:27 AM Dictation Location: [place] [address] Transcribed By: [facility] 09/28/21926 Dictated By: Alcides Malin Jr, DO 09/28/21926 Signed By: 09/28/21926 Normal [facility] Yeast detection in urine sed iment by light microscopyOrdered By: Sumanth Lowe on 09-28-2021 Yeast LM Ql (Urine sed) None seen [HPF] None Seen [facility] pH Auto test strip (U)Ordere d By: Sumanth Lowe on 09-28-2021 pH (U) 6.5 [pH] 5.0-9.0 [facility] Prothrombin Time INRon 08-26 INR Coag (PPP) [Relative time] 2.1 {INR} [facility] videof[employer]me Other Prothrombin Time INR [facility] [employer] Other Prothrombin Time INRon 08-05 INR Coag (PPP) [Relative time] 2.3 {INR} [facility] Other Prothrombin Time INR [facility] [employer] Other Complete Blood Count with Au to Diffon 07-16-2021 Basophils (Bld) [#/Vol] 0.02 10*3/uL Normal 0.00-0.20 [facility] Recreation Officer Comment on above: Performed By: #### L IPD, TSH, CMP, VITD, CBCAD #### [facility] [address], [place] [id number] Basophils/100 WBC (Bld) 0.3 % Normal [facility] Recreation Officer Comment on above: Performed By: #### L IPD, TSH, CMP, VITD, CBCAD #### [facility] [address], [place] [id number] Eosinophils (Bld) [#/Vol] 0.17 10*3/uL Normal 0.02-0.50 [facility] Recreation Officer Comment on above: Performed By: #### L IPD, TSH, CMP, VITD, CBCAD #### [facility] [address], [place] [id number] Eosinophils/100 WBC (Bld) 2.8 % Normal [facility] Recreation Officer Comment on above: Performed By: #### L IPD, TSH, CMP, VITD, CBCAD #### [facility] [address], [place] [id number] Erythrocyte distribution width (RBC) [Ratio] 15.0 % Normal 11.0-15.0 [facility] Recreation Officer Comment on above: Performed By: #### L IPD, TSH, CMP, VITD, CBCAD #### [facility] [address], [place] [id number] Hematocrit (Bld) [Volume fraction] 39.2 % Normal 35.0-47.0 [place] Recreation Officer Comment on above: Performed By: #### L IPD, TSH, CMP, VITD, CBCAD #### [facility] [address], [place] [id number] Hemoglobin (Bld) [Mass/Vol] 12.0 g/dL Normal 11.6-15.5 [facility] Specialist Comment on above: Performed By: #### L IPD, TSH, CMP, VITD, CBCAD #### [facility] [address], [place] [id number] Lymphocytes (Bld) [#/Vol] 1.7 10*3/uL Normal 0.9-3.9 [facility] Specialist Comment on above: Performed By: #### L IPD, TSH, CMP, VITD, CBCAD #### [facility] [address], [place] [id number] Lymphocytes/100 WBC (Bld) 27.5 % Normal [facility] Specialist Comment on above: Performed By: #### L IPD, TSH, CMP, VITD, CBCAD #### [facility] [address], [place] [id number] MCH (RBC) [Entitic mass] 29.4 pg Normal 27.0-33.0 [facility] Specialist Comment on above: Performed By: #### L IPD, TSH, CMP, VITD, CBCAD #### [facility] [address], [place] [id number] MCHC (RBC) [Mass/Vol] 30.6 g/dL Low 32.0-36.[address] [facility] Comment on above: Performed By: #### L IPD, TSH, CMP, VITD, CBCAD #### [facility] [address], [place] [id number] MCV (RBC) [Entitic vol] 96 fL Normal 80-100 [facility] Specialist Comment on above: Performed By: #### L IPD, TSH, CMP, VITD, CBCAD #### [facility] [address], [place] [id number] Monocytes (Bld) [#/Vol] 0.6 10*3/uL Normal 0.2-0.9 [facility] Specialist Comment on above: Performed By: #### L IPD, TSH, CMP, VITD, CBCAD #### [facility] [address], [place] [id number] Monocytes/100 WBC (Bld) 10.5 % Normal [facility] Comment on above: Performed By: #### L IPD, TSH, CMP, VITD, CBCAD #### [facility] [address], [place] [id number] Neutrophils (Bld) [#/Vol] 3.6 10*3/uL Normal 1.5-7.8 [facility] Specialist Comment on above: Performed By: #### L IPD, TSH, CMP, VITD, CBCAD #### [facility] [address], [place] [id number] Neutrophils/100 WBC (Bld) 58.6 % Normal [facility] Specialist Comment on above: Performed By: #### L IPD, TSH, CMP, VITD, CBCAD #### [facility] [address], [place] [id number] Platelet mean volume (Bld) [Entitic vol] 11.40 fL Normal 7.50-12.50 [facility] Comment on above: Performed By: #### L IPD, TSH, CMP, VITD, CBCAD #### [facility] [address], [place] [id number] Platelets (Bld) [#/Vol] 193 10*3/uL Normal 140-400 [facility] Specialist Comment on above: Performed By: #### L IPD, TSH, CMP, VITD, CBCAD #### [facility] [address], [place] [id number] RBC (Bld) [#/Vol] 4.08 10*6/uL Normal 3.90-5.20 [facility] Specialist Comment on above: Performed By: #### L IPD, TSH, CMP, VITD, CBCAD #### [facility] [address], [place] [id number] RDW-SD 52.8 fL High 37.0-50.0 [facility] Specialist Comment on above: Performed By: #### L IPD, TSH, CMP, VITD, CBCAD #### [facility] [address], [place] [id number] WBC (Bld) [#/Vol] 6.1 10*3/uL Normal 3.8-11.0 [facility] Recreation Officer Comment on above: Performed By: #### L IPD, TSH, CMP, VITD, CBCAD #### [facility] [address], [place] [id number] Comprehensive Metabolic Pane lcoo 07-16-2021 Albumin [Mass/Vol] 4.1 g/dL Normal 3.6-5.1 Mar[facility] [place] Recreation Officer Comment on above: Performed By: #### L IPD, TSH, CMP, VITD, CBCAD #### [facility] [address], [place] [id number] Albumin/Globulin [Mass ratio] 1.5 {ratio} Normal 1.0-2.5 [facility] Specialist Comment on above: Performed By: #### L IPD, TSH, CMP, VITD, CBCAD #### [facility] [address], [place] [id number] ALP [Catalytic activity/Vol] 104 U/L Normal 35-119 [facility] Specialist Comment on above: Performed By: #### L IPD, TSH, CMP, VITD, CBCAD #### [facility] [address], [place] [id number] ALT [Catalytic activity/Vol] 7 U/L Normal 6-33 [facility] Specialist Comment on above: Result Comment: 02/11 Female reference range changed. Performed By: #### L IPD, TSH, CMP, VITD, CBCAD #### [facility] [address], [place] [id number] Anion gap [Moles/Vol] 18 mmol/L Normal 12-[address] [facility] Comment on above: Result Comment: Effe ctive 03/19/2019 reference range changed. Performed By: #### L IPD, TSH, CMP, VITD, CBCAD #### [facility] [address], [place] [id number] AST [Catalytic activity/Vol] 16 U/L Normal 9-34 [facility] Specialist Comment on above: Performed By: #### L IPD, TSH, CMP, VITD, CBCAD #### [facility] [address], [place] [id number] Bilirubin [Mass/Vol] 0.92 mg/dL Normal 0.30-1.20 [facility] Comment on above: Performed By: #### L IPD, TSH, CMP, VITD, CBCAD #### [facility] [address], [place] [id number] BUN/CREA 29 Ratio High 6-22 [facility] Comment on above: Performed By: #### L IPD, TSH, CMP, VITD, CBCAD #### [facility] [address], [place] [id number] Calcium [Mass/Vol] 9.5 mg/dL Normal 8.6-10.2 [facility] Comment on above: Performed By: #### L IPD, TSH, CMP, VITD, CBCAD #### [facility] [address], [place] [id number] Chloride [Moles/Vol] 99 mmol/L Normal 98-107 [facility] Comment on above: Performed By: #### L IPD, TSH, CMP, VITD, CBCAD #### [facility] [address], [place] [id number] CO2 [Moles/Vol] 26 mmol/L Normal 20-31 [facility] Comment on above: Performed By: #### L IPD, TSH, CMP, VITD, CBCAD #### [facility] [address], [place] [id number] Creatinine [Mass/Vol] 0.5 mg/dL Low 0.6-1.[address] [facility] Comment on above: Performed By: #### L IPD, TSH, CMP, VITD, CBCAD #### [facility] [address] [facility] [place] [id number] eGFRAA 135 mL/min/1.73m2 Normal >60 [facility] Comment on above: Performed By: #### L IPD, TSH, CMP, VITD, CBCAD #### [facility] [address] [facility] [place] [id number] eGFRNAA 111 mL/min/1.73m2 Normal >60 [place] [facility] Officer Comment on above: Performed By: #### L IPD, TSH, CMP, VITD, CBCAD #### [facility] [address], [place] [id number] Globulin (S) [Mass/Vol] 2.7 g/dL Normal 1.9-3.7 [facility] Recreation Officer Comment on above: Performed By: #### L IPD, TSH, CMP, VITD, CBCAD #### [facility] [address], [place] [id number] Glucose [Mass/Vol] 222 mg/dL High 65-99 [facility] [place] Recreation Officer Comment on above: Result Comment: For FASTING Glucose --- ADA reference ranges: Normal 65-99 mg/dl Prediabetes 100-125 Diabetes >/= 126 Performed By: #### L IPD, TSH, CMP, VITD, CBCAD #### [facility] [address], [place] [id number] Potassium [Moles/Vol] 4.7 mmol/L Normal 3.5-5.5 [facility] Recreation Officer Comment on above: Performed By: #### L IPD, TSH, CMP, VITD, CBCAD #### [facility] [address], [place] [id number] Protein [Mass/Vol] 6.8 g/dL Normal 6.1-8.1 [facility] [place] Recreation Officer Comment on above: Performed By: #### L IPD, TSH, CMP, VITD, CBCAD #### [facility] [address], [place] [id number] Sodium [Moles/Vol] 138 mmol/L Normal 135-146 Marcia [place] Recreation Officer Comment on above: Performed By: #### L IPD, TSH, CMP, VITD, CBCAD #### [facility] [address], [place] [id number] Urea nitrogen [Mass/Vol] 15 mg/dL Normal 7-25 [facility] Recreation Officer Comment on above: Performed By: #### L IPD, TSH, CMP, VITD, CBCAD #### [facility] [address], [place] [id number] Hemoglobin A1Con 07-16-2021 EAG 194.38 Normal [place] Recreation Officer Comment on above: Performed By: #### A 1C #### [facility] [address], [place] [id number] HbA1c (Bld) [Mass fraction] 8.4 % High 4.0-6.0 [facility] Specialist Comment on above: Performed By: #### A 1C #### [facility] [address], [place] [id number] Lipid Panelon 07-16-2021 Cholesterol [Mass/Vol] 172 mg/dL Normal 125-200 [facility] Specialist Comment on above: Result Comment: Low risk < 200mg/dL Borderline risk 201-239 mg/dl High risk > or equal to 240 Performed By: #### L IPD, TSH, CMP, VITD, CBCAD #### [facility] [address], [place] [id number] Cholesterol in HDL [Mass/Vol] 57 mg/dL Normal >40 [facility] Specialist Comment on above: Result Comment: High Cardiovascular Risk HDL <40 mg/dL Low Cardiovascular Risk HDL > or equal to 60 mg/dl Performed By: #### L IPD, TSH, CMP, VITD, CBCAD #### [facility] [address], [place] [id number] Cholesterol in LDL [Mass/Vol] 88 mg/dL Normal [facility] Specialist Comment on above: Result Comment: LDL ATP III CLASSIFICATION LDL less than 100 mg/dl Optimal LDL 100-129 mg/dl Near or above optimal LDL 130-159 Borderline high LDL 160-189 High LDL greater than 189 mg/dl Very High Performed By: #### L IPD, TSH, CMP, VITD, CBCAD #### [facility] [address], [place] [id number] Cholesterol in VLDL [Mass/Vol] 27 mg/dL Normal [facility] Specialist Comment on above: Performed By: #### L IPD, TSH, CMP, VITD, CBCAD #### [facility] [address], [place] [id number] Cholesterol.total/Cho lesterol in HDL [Mass ratio] 3 {ratio} Normal [facility] Specialist Comment on above: Performed By: #### L IPD, TSH, CMP, VITD, CBCAD #### [facility] [address], [place] [id number] Triglyceride [Mass/Vol] 133 mg/dL Normal 30-150 [facility] Recreation Officer Comment on above: Result Comment: TRIG ATPIII CLASSIFICATIONS TRIG less than 150 mg/dl Normal TRIG 150-199 mg/dl Borderline High TRIG 200-500 mg/dl High TRIG greather than 500 mg/dl Very High Performed By: #### L IPD, TSH, CMP, VITD, CBCAD #### [facility] [address], [place] [id number] TSHon 07-16-2021 TSH 1.480 uIU/mL Normal 0.400-4.50 0 [facility] Recreation Officer Comment on above: Performed By: #### L IPD, TSH, CMP, VITD, CBCAD #### [facility] [address], [place] [id number] Vitamin B12on 07-16-2021 Cobalamin (Vitamin B12) [Mass/Vol] 1009 pg/mL High 211-946 [facility] Recreation Officer Comment on above: Performed By: #### B 12 #### [facility] [address], [place] [id number] Vitamin D 25-OHon 07-16-2021 VIT D 25 OH 56 ng/ml Normal >29 [facility] Recreation Officer Comment on above: Result Comment: Frederic min D Status Deficiency <20 ng/mL Insufficiency 20-29 ng/mL Optimal 30-100 ng/mL Possible Toxicity >=150 ng/mL Performed By: #### L IPD, TSH, CMP, VITD, CBCAD #### [facility] [address], [place] [id number] Prothrombin Time INRon 06-10 INR Coag (PPP) [Relative time] 5.2 {INR} [facility] Other Prothrombin Time INR [facility] Other Prothrombin Time INRon 05-26 INR Coag (PPP) [Relative time] 3.9 {INR} [facility] Other Prothrombin Time INR [facility] Other Prothrombin Time INRon 01-12 -2022 INR Coag (PPP) [Relative time] 3.2 {INR} [facility] Other Prothrombin Time INR [facility] Other Prothrombin Time INRon 02-25 INR Coag (PPP) [Relative time] 1.9 {INR} [facility] Other Prothrombin Time INR [facility] Other Prothrombin Time INRon 01-28 INR Coag (PPP) [Relative time] 2.2 {INR} [facility] Other Prothrombin Time INR [facility] Other Prothrombin Time INRon 12-10 INR Coag (PPP) [Relative time] 2.4 {INR} [facility] Other Prothrombin Time INR [facility] Other Office Visit (Neuro-Movement -PD)on 11-01-2017 Office Visit ([id number]) History of Present IllnessALTON BARKER is here for follow-up. She is a right-handed 77 year-old woman with tremor since 2013. She was last seen in April and has had some progression of tremor. She may notice it when carrying something or in her chin. She is getting slower. It is taking longer to shower and get ready. This problem has not been previously treated with medications. She reports balance problems and falls. She reports 2 falls per year. She reports speech problems and dysphagia. She reports urinary incontinence and orthostatic symptoms . She gets lightheaded but does not pass out. She reports she has symptoms of depression and anxiety. She reports no difficulty falling asleep, no difficulty staying asleep and no acting out of dreams. Hanna Sleepiness Scale is 14. She reports concern about memory and hallucinations . She may see a shadow or floater move by her vision. She reports no recent physical therapy and no recent occupational therapy. She does not exercise. Active Problems MCI (mild cognitive impairment) (331.83) (G31.84) Parkinson's disease (332.0) (G20) Resting tremor (781.0) (R25.9) Urge incontinence (788.31) (N39.41) Past Medical History History of CAD (coronary artery disease) (414.00) (I25.10) History of depression (V11.8) (Z86.59) History of diabetes mellitus (V12.29) (Z86.39) History of hypercholesterolemia (V12.29) (Z86.39) History of hypothyroidism (V12.29) (Z86.39) History of irritable bowel syndrome (V12.79) (Z87.19) History of Macular degeneration (362.50) (H35.30) History of Meningioma (225.2) (D32.9) History of Morbid obesity, unspecified obesity type (278.01) (E66.01) History of Venous insufficiency (459.81) (I87.2) History of Vitamin D deficiency (268.9) (E55.9) Surgical History History of Appendectomy History of Cataract Extraction History of Cholecystectomy History of Hemorrhoidectomy History of Knee Surgery History of Thyroid Surgery Family History Family history of tremor (V17.2) (Z82.0) Family history of tremor (V17.2) (Z82.0) Family history of tremor (V17.2) (Z82.0) Social History Former smoker (V15.82) (Z87.891) Occasional alcohol use (V61.07) (Z63.4) Allergies Vicodin TABS Recorded By: Aliya Hunter; 06/25/2016 2:07:33 PM Current Meds Medication NameInstructionReasonBaby Aspirin 81 MG CHEWBiotin CAPSDiclofenac Sodium 1 % Transdermal GelFluocinonide 0.05 % External SolutionLevothyroxine Sodium 75 MCG Oral TabletMetFORMIN HCl - 500 MG Oral TabletMetoprolol Tartrate 50 MG Oral TabletOmeprazole 40 MG Oral Capsule Delayed ReleasePravastatin Sodium 40 MG Oral TabletPreserVision AREDS Oral CapsuleVenlafaxine HCl - 75 MG Oral TabletVitamin D3 2000 UNIT Oral TabletWarfarin Sodium 2 MG Oral Tablet Vitals Vital Signs Recorded: [id number] 01:33PMHeart [id number], JSVKtbnnyfxo78, [id number] lb 1 ozBMI Jlurlvhbfu85.59BSA Calculated2.27 Physical ExamConstitutional: General appearance: no acute distress Mental status: The patient was in no distress, alert, interactive and cooperative. Affect is appropriate. Orientation: oriented to person, oriented to place and oriented to time. Cranial nerve II: Visual crain full to confrontation. Cranial nerves III, IV, and : Pupils round, equally reactive to light; no ptosis. EOMs intact. No nystagmus. Cranial Nerve V: Facial sensation intact bilaterally. Cranial nerve VII: Normal and symmetric facial strength. Cranial nerve VIII: Hearing is intact bilaterally to finger rub / whisper. Cranial nerves IX and X: Palate elevates symmetrically. Cranial nerve XI: Shoulder shrug and neck rotation strength are intact. Cranial nerve XII: Tongue midline with normal strength. Motor: Abnormal. (She has intermittent right thumb tremor at rest, and with postural extension it is in the 4th finger on the left with adduction/abduction. With walking she has overflow tremor on the left. There is decremental response on the left>right with finger tapping. ) See Detailed 27 item UPDRS part III. Muscle bulk was normal in both upper and lower extremities. Muscle strength was 5/5 throughout. Coordination: There is no limb dystaxia and rapid alternating movements are intact. no dysmetria on finger nose finger. Gait: Gait is normal without spasticity, ataxia or bradykinesia. Stance is stable with a negative Romberg. UPDRS Examination The patient is currently off medication. Speech: 0 Facial Expression: 0.5 Rest Tremor: Head: 0 RUE: 0.5 LUE: 0.5 RLE: 0 LLE: 0 Action Tremor: RUE: 0 LUE: 0.5 Rigidity: Neck: 0 RUE: 0 LUE: 0.5 RLE: 0 LLE: 0 Finger Taps: RUE: 1 LUE: 1.5 Hand Movements: RUE: 1 LUE: 2 Rapid Alternating Movements: RUE: 1 LUE: 1.5 Leg Agility: RLE: 1 LLE: 1.5 Arising from chair: 1 Posture: 1 Gait: 1 Postural Stability: 0 Body Bradykinsia: 0.5 Josh and Yahr Stage: Diagnoses/Problems Parkinson's disease (332.0) (G20) Orders Start: Carbidopa-Levodopa 25-100 MG Oral Tablet; TAKE 0.5 TABLET 3 times daily for 1week and then increase the first dose to 1 tablet Rx By: Tyree Perez; Dispense: 30 Days ; #:69 Tablet; Refill: 6;For: Parkinson's disease; KISHOR = N; Verified Transmission to [id number]; Last Updated By: Joann Erwin; 10/26/2017 2:12:16 PM Provider Josefina is a right-handed 77 year-old woman with right sided resting tremor since 2013 consistent with mild Parkinson's disease. I am recommending starting Sinemet 0.5 tablets three times daily for 1 week with meals and then increase the first dose to 1 tablet. General Billing Time: Medical decision making was highly complex due to multiple diagnoses and management options., Greater than 50% of the visit was spent counseling about diagnosis, prognosis, and treatment options. 25 minutes was spent [id number] in the visit. Patient Discussion/SummaryI am recommending starting Sinemet 0.5 tablets three times daily for 1 week with meals and then increase the first dose to 1 tablet. Follow up in 3 months. Signatures Electronically signed by : Tyree Perez MD; Nov 01 2017 8:36AM EST (Author) Normal [employer] Vital Signs Date Time Vital Sign Value Performing Clinician Faci lity 01-20-2023 14:52-0500 Body height 167.6 cm Gloria Perez APRN.CNP Work Phone: [facility] 01-20-2023 14:52-0500 SaO2% (BldA) [Mass fraction] 98 % Gloria Perez APRN.DIVERS[employer]IED [employer] FARMER Work Phone: [facility] 07-08-2022 14:54-0400 Body height 167.6 cm Gloria Perez APRN.DIV[employer]IED [employer] FARMER Work Phone: [facility] 07-08-2022 14:54-0400 Body weight 85.14 kg Gloria Perez APRN.DIV[employer] FARMER Work Phone: [facility] 07-08-2022 14:54-0400 SaO2% (BldA) [Mass fraction] 98 % Gloria Perez APRN.DIVERSIFIED [employer]OPS FARMER Work Phone: [facility] 05-20-2022 09:30-0500 Diastolic blood pressure 60 mm[Hg] DO Honey Vaschak Work Phone: [facility] 05-20-2022 09:30-0500 Heart rate 89 /min DO Honey Vaschak Work Phone: [facility] 05-20-2022 09:30-0500 Systolic blood pressure 106 mm[Hg] DO Honey Vaschak Work Phone: [facility] 11-25-2021 16:00-0400 Body temperature 97.4 [degF] DO Honey Vaschak Work Phone: [facility] 11-25-2021 16:00-0400 Diastolic blood pressure 61 mm[Hg] DO Honey Vaschak Work Phone: [facility] 11-25-2021 16:00-0400 Heart rate 98 /min DO Honey Danilochak Work Phone: [facility] 11-25-2021 16:00-0400 Respiratory rate 16 /min DO Honey Mukulk Work Phone: [facility] 11-25-2021 16:00-0400 SaO2% (BldA) [Mass fraction] 98 % DO Honey Vaschak Work Phone: [facility] 11-25-2021 16:00-0400 Systolic blood pressure 96 mm[Hg] DO Honey Vaschak Work Phone: [facility] 11-24-2021 12:10-0400 Body height 167.64 cm DO Honey Vaschak Work Phone: [facility] 11-22-2021 06:00-0400 Body weight 92.8 kg DO Honey Vaschak Work Phone: [facility] 11-13-2021 21:44-0400 Body temperature 98.1 [degF] DO Honey Vaschak Work Phone: [facility] 11-13-2021 21:44-0400 Diastolic blood pressure 71 mm[Hg] DO Honey Vaschak Work Phone: [facility] 11-13-2021 21:44-0400 Heart rate 92 /min DO Honey Vaschak Work Phone: [facility] 11-13-2021 21:44-0400 Respiratory rate 18 /min DO Honey Vaschak Work Phone: [facility] 11-13-2021 21:44-0400 SaO2% (BldA) [Mass fraction] 98 % DO Honey Vaschak Work Phone: [facility] 11-13-2021 21:44-0400 Systolic blood pressure 112 mm[Hg] DO Honey Vaschak Work Phone: [facility] 11-12-2021 16:00-0400 Body temperature 97.6 [degF] DO Honey Danilochak Work Phone: [facility] 11-12-2021 16:00-0400 Diastolic blood pressure 63 mm[Hg] DO Honey Vaschak Work Phone: [facility] 11-12-2021 16:00-0400 Heart rate 96 /min DO Honey Danilochak Work Phone: [facility] 11-12-2021 16:00-0400 Respiratory rate 16 /min DO Honey Danilochak Work Phone: [facility] 11-12-2021 16:00-0400 SaO2% (BldA) [Mass fraction] 98 % DO Honey Vaschak Work Phone: [facility] 11-12-2021 16:00-0400 Systolic blood pressure 98 mm[Hg] DO Honey Vaschak Work Phone: [facility] 11-12-2021 10:30-0400 Body height 167.64 cm DO Honey Vaschak Work Phone: [facility] 11-11-2021 15:00-0400 Body weight 92.98 kg DO Honey Vaschak Work Phone: [facility] 11-11-2021 08:00-0400 Body temperature 97.9 [degF] DO Honey Vaschak Work Phone: [facility] 11-11-2021 08:00-0400 Diastolic blood pressure 67 mm[Hg] DO Honey Vaschak Work Phone: [facility] 11-11-2021 08:00-0400 Heart rate 87 /min DO Honey Vaschak Work Phone: [facility] 11-11-2021 08:00-0400 SaO2% (BldA) [Mass fraction] 95 % DO Honey Vaschak Work Phone: [facility] 11-11-2021 08:00-0400 Systolic blood pressure 103 mm[Hg] DO Honey Vaschak Work Phone: [facility] 11-11-2021 05:58-0400 Respiratory rate 17 /min DO Honey Vaschak Work Phone: [facility] 11-11-2021 04:10-0400 Body weight 93.3 kg DO Honey Vaschak Work Phone: [facility] 11-05-2021 16:33-0400 Body height 167.64 cm DO Honey Vaschak Work Phone: [facility] 10-19-2021 23:25-0400 Diastolic blood pressure 78 mm[Hg] DO Honey Vaschak Work Phone: [facility] 10-19-2021 23:25-0400 Heart rate 83 /min DO Honey Vaschak Work Phone: [facility] 10-19-2021 23:25-0400 Respiratory rate 18 /min DO Honey Vaschak Work Phone: [facility] 10-19-2021 23:25-0400 SaO2% (BldA) [Mass fraction] 100 % DO Honey Vaschak Work Phone: [facility] 10-19-2021 23:25-0400 Systolic blood pressure 164 mm[Hg] DO Honey Rabago Work Phone: [facility] 10-19-2021 19:51-0400 Body temperature 97.6 [degF] DO Honey Rabago Work Phone: [facility] 10-19-2021 19:48-0400 Body height 167.64 cm DO Honey Rabago Work Phone: [facility] 10-19-2021 19:48-0400 Body weight 98.6 kg DO Honey Rabago Work Phone: [facility] 10-01-2021 11:58-0400 Body height 167.6 cm Gloria Perez APRN.[employer] F[employer]ER Work Phone: [facility] 10-01-2021 11:58-0400 Body weight 101.06 kg Gloria Perez PANMAN.DIVERSIFIED CROPS FARMER Work Phone: [facility] 10-01-2021 11:58-0400 SaO2% (BldA) [Mass fraction] 98 % Gloria Perez PANMAN.DIVERSIFIED CROPS FARMER Work Phone: [facility] 09-28-2021 02:06-0400 Heart rate 86 /min DO Honey Rabago Work Phone: [facility] 09-28-2021 00:01-0400 Body height 167.64 cm DO Honey Rabago Work Phone: [facility] 09-28-2021 00:01-0400 Body mass index (BMI) [Ratio] 35.5 kg/m2 DO Honey Rabago Work Phone: [facility] 09-28-2021 00:01-0400 Body weight 99.79 kg DO Honey Rabago Work Phone: [facility] 09-27-2021 23:57-0400 Body temperature 99.6 [degF] DO Honey Hima Work Phone: [facility] 09-27-2021 23:57-0400 Diastolic blood pressure 59 mm[Hg] DO Honey Rabago Work Phone: [facility] 09-27-2021 23:57-0400 Respiratory rate 16 /min DO Honey Rabago Work Phone: [facility] 09-27-2021 23:57-0400 SaO2% (BldA) [Mass fraction] 97 % DO Honey Rabago Work Phone: [facility] 09-27-2021 23:57-0400 Systolic blood pressure 125 mm[Hg] DO Honey Rabago Work Phone: [facility] 07-31-2020 16:20-0400 Body height 167.64 cm Honey Rabago Work Phone: [facility] 07-31-2020 16:20-0400 Body mass index (BMI) [Ratio] 41.6 kg/m2 Honey Rabago Work Phone: [facility] 07-31-2020 16:20-0400 Body weight 117.02 kg Honey Rabago Work Phone: [facility] 07-31-2020 16:19-0400 Body temperature 98.1 [degF] Honey Rabago Work Phone: [facility] 07-31-2020 16:19-0400 Diastolic blood pressure 70 mm[Hg] Honey Rabago Work Phone: [facility] 07-31-2020 16:19-0400 Heart rate 90 /min Honey GilmanEyeQuant Work Phone: [facility] 07-31-2020 16:19-0400 Respiratory rate 18 /min Honey Rabago Work Phone: [facility] 07-31-2020 16:19-0400 SaO2% (BldA) [Mass fraction] 98 % Honey Rabago Work Phone: [facility] 07-31-2020 16:19-0400 Systolic blood pressure 155 mm[Hg] Honey Rabago Work Phone: [facility] Encounters Encounter Date Encounter Type Care Provider Facility Start: 02-11-2023 Telephone encounter Gloria blankenship APRN.DIVERSIFIED CROPS FARMER Work Phone: Neurology Comment on above: Medication Problem Start: 01-25-2023 End: 01-25-2023 ambulatory URBANO BENNETT Not Available Start: 01-20-2023 End: 01-20-2023 ambulatory HONEY RABAGO Facility:[facility] Start: 01-20-2023 End: 01-20-2023 Patient encounter procedure Gloria Perez APRN.DIVERSIFIED CROPS FARMER Work Phone: Neurology Comment on above: Parkinson's disease without dyskinesia, with fluctuating manifestations (Primary Dx); Depression with anxiety Start: 07-14-2022 End: 07-14-[address] HONEY RABAGO Facility:[facility] Start: 07-12-2022 End: 07-12-[address] HONEY RABAGO Facility:[facility] Start: 07-08-2022 End: 07-08-2022 ambulatory HONEY RABAGO Facility:[facility] Start: 07-08-2022 End: 07-08-2022 Patient encounter procedure Gloria Perez APRN.DIVERSIFIED CROPS FARMER Work Phone: Neurology Comment on above: Parkinson's disease (HCC) (Primary Dx); Depression with anxiety Start: 06-01-2022 End: 06-01-[address] HONEY RABAGO Facility:[facility] Start: 05-31-2022 ambulatory Gloria Perez APRN.DIVERSIFIED [employer]OPS FARMER Work Phone: Neurology Comment on above: UPDATE: ALTON CRAWFORD : [birth year] Start: 05-20-2022 End: 05-20-2022 ambulatory Honey Rabago Facility:[facility] Start: 05-20-2022 End: 05-20-2022 ambulatory DO Honey Rabago Work Phone: [facility] Work Phone: Start: 05-20-2022 End: 05-20-2022 Discharged Recurring DO Honey Rabago Work Phone: [facility] Work Phone: Start: 04-13-2022 Refill Gloria Perez PANMAN.DIVERSIFIED CROPS FARMER Work Phone: Neurology Comment on above: Refill Request Start: 02-15-2022 Telephone encounter Gloria blankenship PANMAN.DIVERSIFIED CROPS FARMER Work Phone: Neurology Comment on above: Patient Update Start: 02-02-2022 End: 02-03-[address] HONEY RABAGO Facility:[facility] Start: 01-08-2022 End: 01-08-2022 ambulatory Anu Alva Other [employer] Other Start: 01-08-2022 Telephone encounter Anu Alva [facility] Start: 12-30-2021 End: 12-30-2021 ambulatory Honey Rabago Facility:[facility] Start: 12-30-2021 End: 12-30-2021 Patient encounter procedure DO Honey Rabago Work Phone: [facility] Start: 12-29-2021 End: 12-30-[address] HONEY RABAGO Facility:[facility] Start: 12-21-2021 End: 12-21-[address] HONEY RABAGO Facility:[facility] Start: 12-15-2021 (Repeat [facility]) Anu Alva [facility] Start: 12-15-2021 End: 12-15-2021 ambulatory Anu Alva Other [employer] Other Start: 12-14-2021 End: 12-14-[address] HONEY RABGAO Facility:[facility] Start: 12-01-2021 (Repeat [facility]) Anu Alva [facility] Start: 12-01-2021 End: 12-01-2021 ambulatory Anu Alva Other [employer] [facility] [email or web address] Other Start: 11-30-2021 End: 11-30-[address] MÉNDEZ HIMA Facility: Start: 11-11-2021 End: 11-25-2021 Evaluation and management of inpatient Alcides Moya Facility:[facility] Start: 11-11-2021 End: 11-25-2021 Evaluation and management of inpatient DO Honey Rabago Work Phone: [facility] Start: 11-05-2021 End: 11-05-2021 ambulatory Oswaldo Almonte Other [facility] [email or web address] Other Start: 11-05-2021 Patient encounter procedure Oswaldo Almonte [facility] Start: 11-05-2021 Telephone encounter Gloria blankenship APRN.DIVERSIFIED CROPS FARMER Work Phone: Neurology Comment on above: Appointment; Patient Update (Called to schedule follow up. Patient in hospital.) Start: 11-04-2021 End: 11-11-2021 ambulatory Honey Rabago Facility:[facility] Start: 11-04-2021 End: 11-11-2021 Evaluation and management of inpatient DO Honey Rabago Work Phone: [facility] Start: 10-26-2021 ambulatory Gloria Perez APRN.DIVERSIFIED CROPS FARMER Work Phone: Neurology Comment on above: ALTON BARKER UPDATE MESSAGE #3 Start: 10-22-2021 Registered Recurring DO Honey Rabago Work Phone: [facility] Start: 10-22-2021 ([facility] R A/c) [facility] Jenna lopez A/C Anu Alva [facility] Start: 10-22-2021 End: 10-23-2021 ambulatory Honey Rabago [facility] [email or web address] Other Start: 10-19-2021 End: 10-20-2021 Emergency department patient visit Holger Dorado Facility:[facility] Start: 10-19-2021 End: 10-20-2021 Emergency department patient visit DO Honey Rabago Work Phone: [facility] Start: 10-01-2021 End: 10-01-2021 Patient encounter procedure Gloria Chris MEMBRENODIVERSIFIED CROPS FARMER Work Phone: Neurology Comment on above: Recurrent episodes o f unresponsiveness (Primary Dx); Parkinson's disease (HCC); Depression with anxiety; Fatigue, unspecified type; Excessive daytime sleepiness Start: 09-29-2021 ([facility] R A/c) [facility] Re peat A/C Anu Fitt [facility] Start: 09-29-2021 End: 09-29-2021 ambulatory Anu Fitt Other [employer] Other Start: 09-28-2021 End: 09-28-2021 Emergency department patient visit Sumanth Lowe Facility:[facility] Start: 09-27-2021 End: 09-28-2021 Emergency department patient visit DO Honey Rabago Work Phone: [facility] Start: 09-23-2021 End: 09-23-2021 ambulatory Anu Fitt Other [employer] Other Start: 09-23-2021 Telephone encounter Anu Alva [facility] Start: 08-26-2021 ([facility] R A/c) [facility] Re peat A/C Anu Fitt [facility] Start: 08-26-2021 End: 08-26-2021 ambulatory Anu Fitt Other [employer] Other Start: 08-05-2021 ([facility] R A/c) [facility] Re peat A/C Anu Fitt [facility] Start: 08-05-2021 End: 08-05-2021 ambulatory Anu Fitt Other [employer] Other Start: 07-20-2021 ([facility] R A/c) [facility] Re peat A/C Anu Fitt [facility] Start: 07-20-2021 End: 07-20-2021 ambulatory Anu Fitt Other [employer] Other Start: 06-10-2021 ([facility] R A/c) [facility] Re peat A/C Anu Fitt [facility] Start: 06-10-2021 End: 06-10-2021 ambulatory Anu Fitt Other [employer] Other Start: 05-26-2021 ([facility] R A/c) [facility] Re peat A/C Anu Fitt [facility] Start: 05-26-2021 End: 05-26-2021 ambulatory Anu Fitt Other [employer] Other Start: 05-19-2021 End: 05-19-2021 ambulatory Anu Fitt Other [employer] Other Start: 05-19-2021 Telephone encounter Anu Fitt [facility] Start: 04-21-2021 End: 04-21-2021 ambulatory Anu Fitt Other [employer] Other Start: 04-21-2021 Telephone encounter Anu Fitt [facility] Start: 04-15-2021 End: 04-15-2021 ambulatory Anu Fitt Other [employer] Other Start: 04-15-2021 Telephone encounter Anu Fitt [facility] Start: 03-25-2021 ([facility] R A/c) [facility] Re peat A/C Anu Fitt [facility] Start: 03-25-2021 End: 03-25-2021 ambulatory Anu Fitt Other [employer] Other Start: 02-25-2021 ([facility] R A/c) [facility] Re peat A/C Anu Fitt [facility] Start: 02-25-2021 End: 02-25-2021 ambulatory Anu Fitt Other [employer] Other Start: 01-28-2021 ([facility] R A/c) [facility] Re peat A/C Anu Fitt [facility] Start: 01-28-2021 End: 01-28-2021 ambulatory Anu Fitt Other [employer] Other Start: 01-21-2021 End: 01-21-2021 ambulatory Anu Fitt Other [employer] Other Start: 01-21-2021 Telephone encounter Anu Juan Miguelt [facility] Start: 01-07-2021 End: 01-07-2021 ambulatory Anu Fitt Other [employer] Other Start: 01-07-2021 Telephone encounter Anu Juan Miguelt [facility] Start: 12-10-2020 ([facility] R A/c) [facility] Re peat A/C Anu Juan Miguelt [facility] Start: 07-31-2020 End: 07-31-2020 Emergency department patient visit Honey Rabago Work Phone: -Emergency Room Start: 06-18-2020 Registered Recurring Honey guerrero Work Phone: -[facility] Procedures Date Procedure Procedure Detail Performing Clinician Start: 11-05-2021 MR lumbar spine wo con DO Honey Rabago Work Phone: Start: 11-04-2021 CT of head without contrast DO Honey Rabago Work Phone: Start: 11-04-2021 Computed tomography of thoracic spine without contrast DO Honey Rabago Work Phone: Start: 11-04-2021 CT cervical spine wi thout contrast DO Honey Rabago Work Phone: Start: 11-04-2021 CT of lumbar spine w ithout contrast DO Honey Rabago Work Phone: Start: 10-19-2021 CT of head without contrast DO Honey Rabago Work Phone: Start: 10-19-2021 X-ray of lumbar spin e, two or three views DO Honey Rabago Work Phone: Start: 09-29-2021 Adult depression scr eening assessment Gloria Perez APRN.DIVERSIFIED CROPS FARMER Work Phone: Start: 09-28-2021 Plain chest X-ray DO Sidra Rabago Work Phone: Start: 07-31-2020 Radiography of cervi james spine Honey Rabago Work Phone: SARS-CoV-2, Influenz a & RSV (PCR) DO Honey Rabago Work Phone: Urine culture DO Honey cuellar Work Phone: Urine culture DO Honey cuellar Work Phone: Urine culture DO Honey cuellar Work Phone: Plan of Treatment Date Care Activity Detail Author Start: 12-04-2023 DIABETES SCREEN DIABETES SCREEN [facility] Start: 12-04-2023 Diabetes Screening Diabetes Screenin g [facility] Start: 11-12-2022 Covid-19 Vaccine ( season) Covid-19 Vaccine () [facility] Start: 09-29-2022 Adult depression screening assessment DEPRESSION SCREENING [facility] Start: 03-14-2022 ADVANCE DIRECTIVE DISCUSSION ADVANCE DIRECTIVE DISCUSSION [facility] Start: 03-14-2022 DEPRESSION ASSESSMENT DEPRESSION ASS ESSMENT [facility] Start: 12-11-2021 [facility] Work Phone: Start: 12-10-2021 [facility] Work Phone: Start: 12-09-2021 [facility] Work Phone: Start: 12-08-2021 [facility] Work Phone: Start: 12-07-2021 [facility] Work Phone: Start: 12-06-2021 [facility] Work Phone: Start: 12-05-2021 [facility] Work Phone: Start: 12-04-2021 [facility] Work Phone: Start: 12-03-2021 [facility] Work Phone: Start: 12-02-2021 [facility] Work Phone: Start: 12-01-2021 [facility] Work Phone: Start: 11-30-2021 [facility] Work Phone: Start: 11-29-2021 [facility] Work Phone: Start: 11-28-2021 [facility] Work Phone: Start: 11-27-2021 [facility] Work Phone: Start: 11-26-2021 [facility] Work Phone: Start: 11-25-2021 [facility] Work Phone: Start: 11-24-2021 End: 11-24-2021 [facility] Start: 11-23-2021 [facility] Start: 11-22-2021 [facility] Work Phone: Start: 11-21-2021 [facility] Work Phone: Start: 11-20-2021 [facility] Work Phone: Start: 11-19-2021 [facility] Work Phone: Start: 11-18-2021 [facility] Work Phone: Start: 11-17-2021 [facility] Work Phone: Start: 11-16-2021 [facility] Work Phone: Start: 11-15-2021 [facility] Work Phone: Start: 11-14-2021 [facility] Work Phone: Start: 11-13-2021 [facility] Work Phone: Start: 11-12-2021 Influenza vaccination INFLUENZA (#1) [facility] Start: 11-11-2021 Administration of prophylactic treatment [facility] Start: 11-11-2021 Hospital admission [facility] Start: 11-11-2021 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 tar distributor operator [facility] Start: 11-11-2021 [facility] Work Phone: Start: 11-11-2021 Evaluation and management of inpatient Back pain [place] [address] [facility] Start: 11-09-2021 [facility] Start: 11-05-2021 MR lumbar spine wo con MR lumbar spi ne wo [facility] Start: 11-05-2021 Administration of prophylactic treatment [facility] Start: 11-05-2021 Administration of prophylactic treatment [facility] Start: 11-05-2021 Consultation [facility] Start: 11-04-2021 Referral to psychiatrist [facility] Start: 11-04-2021 Hospital admission [facility] Start: 11-04-2021 End: 11-11-2021 Evaluation and management of inpatient Back pain [place] [address] [facility] Start: 11-04-2021 CT of head without contrast CT head/brain wo con [facility] Start: 11-04-2021 Computed tomography of thoracic spine without contrast CT thoracic spine wo con [facility] Start: 11-04-2021 CT cervical spine without contrast CT cervical spine wo [facility] Start: 11-04-2021 CT of lumbar spine without contrast CT lumbar spine wo [facility] Start: 10-22-2021 Registered Recurring Registered Recu rring [facility] Start: 05-20-2021 COVID-19 VACCINE (4 - Booster for Moderna series) COVID-19 VACCINE (4 - Booster for Moderna series) [facility] Start: 03-17-2021 COVID-19 VACCINE (4 - Booster for Moderna series) COVID-19 VACCINE (4 - Booster for Moderna series) [facility] Start: 03-14-2021 ADVANCE DIRECTIVE DISCUSSION ADVANCE DIRECTIVE DISCUSSION [facility] Start: 03-14-2021 DEPRESSION ASSESSMENT DEPRESSION ASS ESSMENT [facility] Start: 07-23-2009 Urine microalbumin profile DTaP,Tdap,Td Vaccine (1 - Tdap) [facility] Start: 2006 BONE DENSITY BONE DENSITY [facility] Start: 2006 Bone Density Screening Bone Density Screening [facility] Start: 2006 PNEUMOCOCCAL: 65+ (1 - PCV) PNEUMOCOCCAL: 65+ (1 - PCV) [facility] Start: 2001 RSV Vaccine (1 - 1-d ose 60+ series) RSV Vaccine (1 - 1-dose 60+ series) [facility] Start: 07-14-1991 SHINGRIX VACCINE (1 of 2) SHINGRIX VACCINE (1 of 2) [facility] Start: 1960 Urine microalbumin profile DTAP,TDAP,TD (1 - Tdap) [facility] End: 10-04-2022 EPIL EEG ROUTINE EPIL EEG ROUTINE NEUROLOGY Routine Recurrent episodes of unresponsiveness 1 Occurrences starting 10/04/2021 until 10/04/2022 [facility] Work Phone: Comment on above: 1 Occurrences starti ng 10/04/2021 until 10/04/[address] [facility] Work Phone: [facility] referral [facility] Immunizations Immunization Date Immunization Notes Care Provider Fa cility 02-05-2019 influenza, high dose seasonal, preservative-free Anu Alva Other [employer] Other Payers Date Payer Category Payer Medicare [id number] 2021 Unknown [employer] S [employer] BLUE SHIELD [employer] HMO [id number] 2021-Present [phone] [address] [place] [address] HMO [id number] 2021 Unknown [employer]THEM BLUE CROS S AND BLUE SHIELD AN[employer]M MED[employer] HMO [id number] 2021-Present [phone] [id number] [place], [place] [address] HMO [id number] 2016 Self-pay [id number] 1959 Medicare [id number] 1959 Unknown [id number] 1941 Unknown [id number] 1941 Unknown [id number] 1941 Unknown [id number] 1941 Unknown [id number] 1941 Unknown [id number] 93 1941 Unknown [id number] [id number] 93 1941 Unknown [id number] [id number] 93 1941 Unknown [id number] 93 1941 Unknown [id number] 259 Private Health Insurance [id number] Unknown [id number] [id number] 31 Unknown [id number] [id number] 31 Unknown [id number] [id number] 31 Unknown [id number] [id number] 31 Unknown [id number] [id number] 31 Unknown [id number] 31 Unknown [id number] 31 Social History Date Type Detail Facility Start: 07-31-2020 End: 02-12-2022 Tobacco smoking status NHIS Ex-smoker (finding) [facility] Start: 1940 Sex Assigned At Female C [facility] Start: 09-29-2021 End: 01-20-2023 Sex Assigned At [facility] Start: 03-02-2018 End: 02-12-2022 Tobacco use and exposure Smokeless tobacco non-user [facility] Start: 09-21-2021 End: 02-12-2022 Exposure to SARS-CoV-2 (event) Not sure [facility] History of tobacco use Current smoker [facility] Start: 11-12-2021 End: 11-12-2021 Tobacco smoking status NHIS Never smoked tobacco (finding) [facility] Start: 09-29-2021 End: 01-20-2023 History of Social function [facility] Adult Depression Screening Assessment 4 [facility] Start: 11-26-2019 Gender identity Identifies as female gender (finding) [facility] Start: 11-26-2019 Sexual orientation Heterosexual (francine [place]) [facility] Medical Equipment Procedure Code Equipment Code Equipment Origin al Text Equipment Identifier Dates USE DIRECTED BEFORE MEALS AND BEDTIME Start: 08-28-2018 End: 09-29-2021 Comment on above: USE DIRECTED BEFO RE MEALS AND BEDTIME Goals Date Patient Goal Desired Activity /State Functional Status Date Assessment Result Facility 11-25-2021 Functional status Patient is Pro gressing Toward Baseline [facility] Work Phone: 11-11-2021 Functional status Patient is Pro gressing Toward Baseline [facility] Work Phone: 11-04-2021 Functional status Patient at Baseline [facility] Work Phone: Mental Status Date Assessment Result Facility 11-25-2021 Cognitive function Cognitive Sta tus Patient at Baseline [facility] Work Phone: 11-11-2021 Cognitive function Cognitive Sta tus Patient Not at Baseline [facility] Work Phone: 11-04-2021 Cognitive function Cognitive Sta tus Patient at Baseline [facility] Work Phone: Clinical Notes 12-10-2020 to 02-11-2023 Addendum Note - Anu Hillman RN - 02/11/2023 2:59 PM ESTTelephone Encounter - Anu Hillman RN - 02/11/2023 2:57 PM ESTTelephone Encounter - Mary Anne Beatty - 02/11/2023 1:52 PM EST Note Date & Type Note Facility 02-11-2023 Note HNO ID: [id number] Author: Nupur Main PA-C Service: ? Author Type: Physician [place] Type: Progress Notes Filed: 02/11/2023 4:48 PM Note Text: Reviewed chart - OK to refill; e-scripted to pharmacy as requested... [facility] 02-11-2023 Miscellaneous Notes Addended by: ANU HILLMAN on: 02/11/2023 02:59 PM Modules accepted: Orders Order pended to preferred pharmacy Last OV 01/20/23 Next OV 06/23/23 E- [id number] [place] [address] - [address] [phone] [id number] carbidopa-levodopa (SINEMET 25-100) 25-100 mg per tablet Patient son called in today in regards to medication and wanting to switch pharmacy, they were told the best way to do this would be to request a new prescription. They would like it sent to [facility] Thank you! documented in this encounter [facility] 01-20-2023 Note HNO ID: [id number] Author: Gloria Perez APRN.CNP Service: ? Author Type: Nurse Practitioner Type: Progress Notes Filed: 01/24/2023 12:36 PM Note Text: [facility] - FOLLOW UP EVALUATION Honey Rabago DO [address] [facility] [address] Dear Honey Rabago DO: I had the pleasure of seeing Ms. Barker for follow-up today. As you know she is a 82 year old right-handed female with a history of Parkinson's disease since 2013. She is seen with her son. Subjective Previous Plan-07/08/2022 Visit: Parkinson's disease: Continue your current medication schedule Join the exercise class they offer there Continue physical therapy and occupational therapy Depression and anxiety: Continue venlafaxine and mirtazapine as scheduled Continue therapy I am checking you for a UTI Interval History: She is having more tremor and noted that she is not getting her Sinemet consistently on time where she lives and this is frustrating for her. She is adjusting to living there otherwise and is involved with many of the activities there. Movement Disorders Medications Schedule - as of the start of the visit: Medications 7am 12pm 5pm Bedtime Sinemet 25/100 1.5 1.5 1.5 Effexor 150mg 1 Effexor 75mg 1 Mirtazapine 7.5mg 1 Parkinson's Motor Complications Medication duration: (Comment: 4-4.5) Wearing off: yes (Comment: She will have tremor when it wears off.) Painful off-state dystonia: no Dyskinesia: no Prior Anti-Parkinson Therapies Carbidopa/Levodopa Questionnaires: In addition, the following areas that may be affected by abnormal involuntary movements were evaluated: Daily activities Difficulties with eating: Difficulties in dressing: Difficulties with hygiene activities: Difficulties with handwriting: Difficulties with doing hobbies and other activities: Difficulties turning in bed: Difficulties getting out of bed, car or chair: Tremors/Gait/Balance Shaking or tremors: Yes-worse when they do not give her the Sinemet on time. Walking and balance problems: She uses her walker 99.% of the time. Number of falls in the Last Month: 1-she fell into a laundry basket while multitasking. She was not hurt. Gait freezing: No Autonomic/Pain Lightheadeness on standing: Yes-goes away quickly Urinary problems: She feels like she is not urinating much. Constipation problems: Not usually Pain and other sensations: Taking Tylenol for pain Speech/Swallowing Speech problems: Her son said sometimes it is quiet Drooling: Occasionally Chewing and swallowing problems: Once in a while if she takes a large bite of meat or stringy meat like pulled pork. Her esophagus was dilated in the past. Sleep/Fatigue Sleep problems: She is using her Cpap. Daytime sleepiness: Not as often. Fatigue: Some days. Mood/Behavior Depression: Depression is intermittent and she is still getting counseling and is on meds. Anxiety: Anxiety is better overall She said she is more relaxed seeing her therapist virtually. Finally, the following table shows the patient's overall global physical and mental health using the PROMIS scale: PROMIS-10 Flowsheet Row Office Visit from 10/01/2021 in Neurology Office Visit from 02/03/2021 in Neurology Global Physical Health T Score 34.9 -- Global Mental Health T Score 38.8 -- 0-10 Standard Pain Scale 3 4 *PROMIS-10 scoring scale: mean = 50, over 50 is above average, under 50 is below average In addition, the following non-motor symptoms and palliative concerns were evaluated: Sleep/Fatigue: REM sleep behavior disorder: Yes She is not sure but is not tangled in her sheets, bed is not a mess, she has not fallen out of bed, etc. Restless Legs Syndrome: Yes Leg swelling: Intermittent Impaired sense of smell: Yes Cognition: Cognitive impairment: yes Her son noted that her thinking is much better when she uses her Cpap consistently. MoCA Cognitive assessment: 29 (02/03/2021) Hallucinations and delusions: She sees shadows at least once a day. Apathy: yes Impulse control disorder: No Not currently a problem but her son said in the past that she ordered a lot online or on TV, $15/month on [employer] tickets (in past also) Palliative Concerns: Caregiver burden: In assisted living so now less stress on son and daughter in law Spiritual concerns: No Advanced directives on file: No Palliative services: No Therapy and Exercise: Last PT Date: August 2022 Last OT Date: ST Date: August 2022 Exercises Regularly: No She has not been good following up with her therapy exercises. ALLERGIES Allergen Reactions Hydrocodone-Acetami* Mental Status Change Adhesive Tape (Sridevi* Rash Bupropion Mental Status Change hallucinations Latex, Natural Rubb* Rash Rosuvastatin Calcium Unknown Current Outpatient Medications Medication Sig estradiol (ESTRACE) 0.01 % (0.1 mg/gram) vaginal cream Use vaginally one (more content not included)... [facility] 01-20-2023 Instructions Gloria Perez APRN.ELDON - 01/20/2023 3:46 PM EST It was a pleasure to see you today. We addressed the following diagnoses: Parkinson's disease without dyskinesia, with fluctuating manifestations (primary encounter diagnosis) Depression with anxiety My recommendations are as follows: 01/20/2023 Visit: Parkinson's disease: Continue current medication schedule but discuss with the director of purchasing if you can take the Sinemet on your own at 12pm and 5pm so that you are getting them on time. Once you are taking it on time, we can see if it needs adjusted. Exercise Let me know if you change your mind about physical therapy Depression and anxiety: Continue venlafaxine and mirtazapine as scheduled Continue therapy Continue the activities you have been doing Follow up with her primary care provider for urinary concerns Swallowing: Follow up with the GI specialist who previously stretched your esophagus Movement Disorders Medication Schedule: Medications 7am 12pm 5pm Bedtime Sinemet 25/100 1.5 1.5 1.5 Effexor 150mg 1 Effexor 75mg 1 Mirtazapine 7.5mg 1 Return in about 4 months (around 05/21/2023). If there are any concerns before your next visit, please call or you can send a message through [employer]. You can also now schedule and select appointments through [employer]. Gloria Perez APRN.ELDON documented in this encounter [facility] 01-20-2023 History of Presen t illness Narrative [facility] - FOLLOW UP EVALUATION Honey Rabago DO [address] [place] [address] Dear Honey Rabago DO: I had the pleasure of seeing Ms. Barker for follow-up today. As you know she is a 82 year old right-handed female with a history of Parkinson's disease since 2013. She is seen with her son. Subjective Previous Plan-07/08/2022 Visit: Parkinson's disease: Continue your current medication schedule Join the exercise class they offer there Continue physical therapy and occupational therapy Depression and anxiety: Continue venlafaxine and mirtazapine as scheduled Continue therapy I am checking you for a UTI Interval History: She is having more tremor and noted that she is not getting her Sinemet consistently on time where she lives and this is frustrating for her. She is adjusting to living there otherwise and is involved with many of the activities there. Movement Disorders Medications Schedule - as of the start of the visit: Medications 7am 12pm 5pm Bedtime Sinemet 25/100 1.5 1.5 1.5 Effexor 150mg 1 Effexor 75mg 1 Mirtazapine 7.5mg 1 Parkinson's Motor Complications Medication duration: (Comment: 4-4.5) Wearing off: yes (Comment: She will have tremor when it wears off.) Painful off-state dystonia: no Dyskinesia: no Prior Anti-Parkinson Therapies Carbidopa/Levodopa Questionnaires: In addition, the following areas that may be affected by abnormal involuntary movements were evaluated: Daily activities Difficulties with eating: Difficulties in dressing: Difficulties with hygiene activities: Difficulties with handwriting: Difficulties with doing hobbies and other activities: Difficulties turning in bed: Difficulties getting out of bed, car or chair: Tremors/Gait/Balance Shaking or tremors: Yes-worse when they do not give her the Sinemet on time. Walking and balance problems: She uses her walker 99.% of the time. Number of falls in the Last Month: 1-she fell into a laundry basket while multitasking. She was not hurt. Gait freezing: No Autonomic/Pain Lightheadeness on standing: Yes-goes away quickly Urinary problems: She feels like she is not urinating much. Constipation problems: Not usually Pain and other sensations: Taking Tylenol for pain Speech/Swallowing Speech problems: Her son said sometimes it is quiet Drooling: Occasionally Chewing and swallowing problems: Once in a while if she takes a large bite of meat or stringy meat like pulled pork. Her esophagus was dilated in the past. Sleep/Fatigue Sleep problems: She is using her Cpap. Daytime sleepiness: Not as often. Fatigue: Some days. Mood/Behavior Depression: Depression is intermittent and she is still getting counseling and is on meds. Anxiety: Anxiety is better overall She said she is more relaxed seeing her therapist virtually. Finally, the following table shows the patient's overall global physical and mental health using the PROMIS scale: PROMIS-10 Flowsheet Row Office Visit from 10/01/2021 in Neurology Office Visit from 02/03/2021 in Neurology Global Physical Health T Score 34.9 -- Global Mental Health T Score 38.8 -- 0-10 Standard Pain Scale 3 4 *PROMIS-10 scoring scale: mean = 50, over 50 is above average, under 50 is below average In addition, the following non-motor symptoms and palliative concerns were evaluated: Sleep/Fatigue: REM sleep behavior disorder: Yes She is not sure but is not tangled in her sheets, bed is not a mess, she has not fallen out of bed, etc. Restless Legs Syndrome: Yes Leg swelling: Intermittent Impaired sense of smell: Yes Cognition: Cognitive impairment: yes Her son noted that her thinking is much better when she uses her Cpap consistently. MoCA Cognitive assessment: 29 (02/03/2021) Hallucinations and delusions: She sees shadows at least once a day. Apathy: yes Impulse control disorder: No Not currently a problem but her son said in the past that she ordered a lot online or on TV, $15/month on lottery tickets (in past also) Palliative Concerns: Caregiver burden: In assisted living so now less stress on son and daughter in law Spiritual concerns: No Advanced directives on file: No Palliative services: No Therapy and Exercise: Last PT Date: August 2022 Last OT Date: Last ST Date: August 2022 Exercises Regularly: No She has not been good following up with her therapy exercises. ALLERGIES Allergen Reactions Hydrocodone-Acetami* Mental Status Change Adhesive Tape (Sridevi* Rash Bupropion Mental Status Change hallucinations Latex, Natural Rubb* Rash Rosuvastatin Calcium Unknown Current Outpatient Medications Medication Sig estradiol (ESTRACE) 0.01 % (0.1 mg/gram) vaginal cream Use vaginally one time a week. acetaminophen (TYLENOL) 500 mg tablet Take 500 mg by mouth every 8 hours as needed. 01/18/2023: Pt takes 2 tabs daily per [facility] med list MEDICATION, NON-DATABASE 750 mg two times a day. Antiacid extra strength metoprolol tartrate, short acting, (LOPRESSOR) 25 mg tablet Take 25 mg by mouth twice daily. polyethylene glycol 3350 17 gram packet Take 17 g by mouth once daily. Dissolve dose in 4 - 8 ounces of liquid and take as directed. ketoconazole (NIZORAL) 2 % shampoo Apply to affected area two times a week. Fluocinolone-Shower Cap 0.01 % oil by scalp route. diclofenac (VOLTAREN) 1 % topical gel JANUVIA 100 mg tablet Take 50 mg by mouth once daily. warfarin (COUMADIN) 4 mg tablet carbidopa-levodopa (SINEMET 25-100) 25-100 mg per tablet Take 1.5 tablets by mouth three times daily. cyanocobalamin (VITAMIN B-12) 500 mcg tablet Take 2 tablets by mouth once daily. Mirtazapine (REMERON) 7.5 mg tablet Take 7.5 mg by mouth daily at bedtime. metoprolol tartrate, short acting, (LOPRESSOR) 50 mg tablet TAKE 1 & 1/2 (ONE & ONE-HALF) TABLETS BY MOUTH TWICE DAILY WITH FOOD FREESTYLE VIVIAN 2 SENSOR kit apply 1 SENSOR to back OF UPPER ARM REMOVE AND REPLACE every 14 days metFORMIN (GLUCOPHAGE) 500 mg tablet Take 1 tablet by mouth once daily. atorvastatin (LIPITOR) 40 mg tablet Take 40 mg by mouth once daily. cholecalciferol (VITAMIN D3) 5,000 unit tab Take by mouth once daily. warfarin (COUMADIN) 2 mg tablet 1 tablet once daily. levothyroxine (SYNTHROID) 75 mcg tablet once daily. omeprazole (PRILOSEC) 20 mg capsule 20 mg once daily. vit C/vit E ac/lut/copper/zinc (PRESERVISION LUTEIN ORAL) Take by mouth twice daily. venlafaxine (EFFEXOR) 75 mg tablet VENLAFAXINE ER 150 MG TABLET,EXTENDED RELEASE 24 HR No current facility-administered medications for this visit. Objective Vital Signs: Ht 167.6 cm (5' 6 ) SpO2 98% BMI 30.30 kg/m Orthostatic Vitals: Sitting: BP 144/78 Pulse 85 Standing: BP 139/84 Pulse 92 No LMP recorded. Patient is postmenopausal. Body mass index is 30.3 kg/m . Movement Disorders Scales Performed: MDS-UPDRS Motor subscale condition of exam Medication Off/On/Naiive ON Time of UPDRS 1538 Time of Last Medication 1300 Last Medication Taken DBS Right N/A DBS Left N/A MDS-UPDRS Motor subscale scores Speech 1-Slight. Loss of modulation, diction or volume, but still all words easy to understand. Facial Expression 1-Slight. Minimal masked facies manifested only by decreased frequency of blinking. Finger Taps Right 0-Normal. No problems. ` Finger Taps Left 1-Slight. a) the regular rhythm is broken with one or two interruptions or hesitations of the tapping movement, b) slight slowing, c) the amplitude decrements near the end of the 10 taps. Hand Movements Right 2-Mild. a) 3 to 5 interruptions during the movements, b) mild slowing, c) the amplitude decrements midway in the task. Hand Movements Left 1-Slight. a) the regular rhythm is broken with one or two interruptions or hesitations of the movement, b) slight slowing, c) the amplitude decrements near the end of the task. Arm Movements Right 1-Slight. a) the regular rhythm is broken with one or two interruptions or hesitations of the movement, b) slight slowing, c) the amplitude decrements near the end of the sequence. Arm Movements Left 2-Mild. a) 3 to 5 interruptions during the movements, b) mild slowing, c) the amplitude decrements midway in the sequence. Toe Taps Right 1-Slight. a) the regular rhythm is broken with one or two interruptions or hesitations of the tapping movement, b) slight slowing, c) the amplitude decrements near the end of the ten taps. Toe Taps Left 1-Slight. a) the regular rhythm is broken with one or two interruptions or hesitations of the tapping movement, b) slight slowing, c) the amplitude decrements near the end of the ten taps. Leg Agility Right 2-Mild. a) 3 to 5 interruptions during the movements, b) mild slowness, c) the amplitude decrements midway in the task. Leg Agility Left 2-Mild. a) 3 to 5 interruptions during the movements, b) mild slowness, c) the amplitude decrements midway in the task. Arise From Chair 2-Mild. Pushes self up from arms of chair without difficulty. Gait 3-Moderate. Requires an assistance device for safe walking (walking stick, walker) but not a person. Gait Freezing 0-Normal. No freezing. Posture Stability Posture 2-Mild. Definite flexion, scoliosis or leaning to one side, but patient can correct posture to normal posture when asked to do so. Body Bradykinesia 1-Slight. Slight global slowness and poverty of spontaneous movements. Postural Tremor Hand Right 0-Normal. No tremor. Postural Tremor Hand Left 0-Normal. No tremor. Kinetic Tremor Right 0-Normal. No tremor. Kinetic Tremor Left 0-Normal. No tremor. Rest Tremor Amplitude Right Upper Extremity 0-Normal. No tremor. Rest Tremor Amplitude Left Upper Extremity 0-Normal. No tremor. Rest Tremor Amplitude Right Lower Extremity 0-Normal. No tremor. Rest Tremor Amplitude Left Lower Extremity 0-Normal. No tremor. Rest Tremor Amplitude Lip/Jaw 1-Slight. < 1 cm in maximal amplitude. Rest Tremor Constancy 2-Mild. Tremor at rest is present 26-50% of the entire examination period. Assessment and Plan: Assessment Ms. Barker is a right-handed 82 year old year old female with Parkinson's disease since 2013. She is noticing more tremor, but has not been getting her Parkinson's disease medication on time so she is going to discuss with the director of purchasing, see if she can take her Parkinson's disease medications only on her own and will let me know if she needs me to call the DON as well. Also, if once taking it on time she is still having more tremor, she will let me know and we can discuss adjustment. The following are the current problems noted and addressed during this visit: Parkinson's disease without dyskinesia, with fluctuating manifestations (primary encounter diagnosis) Depression with anxiety Plan 01/20/2023 Visit: Parkinson's disease: Continue current medication schedule but discuss with the director of purchasing if you can take the Sinemet on your own at 12pm and 5pm so that you are getting them on time Exercise Let me know if you change your mind about physical therapy Depression and anxiety: Continue venlafaxine and mirtazapine as scheduled Continue therapy Continue the activities you have been doing Follow up with her primary care provider for urinary concerns Swallowing: Follow up with the GI specialist who previously stretched your esophagus Updated Movement Disorders Medication Schedule: Medications 7am 12pm 5pm Bedtime Sinemet 25/100 1.5 1.5 1.5 Effexor 150mg 1 Effexor 75mg 1 Mirtazapine 7.5mg 1 Level of service : 04728 (40-54 min). Time spent 47 min on the day of service, which included preparing to see the patient, [id number] patient care, completing clinical documentation, obtaining and/or reviewing separately obtained history, performing a medically appropriate examination, counseling and educating the patient/family/caregiver, and ordering medications, tests, or procedures. Gloria Perez APRN.ELDON documented in this encounter [facility] 07-08-2022 Note HNO ID: [id number] Author: Gloria Perez APRN.CNP Service: ? Author Type: Nurse Practitioner Type: Progress Notes Filed: 07/11/2022 5:23 PM Note Text: [facility] - FOLLOW UP EVALUATION oHney Rabago DO, DO [address] [place] [address] Dear Honey Rabago DO, DO: I had the pleasure of seeing Ms. Barker for follow-up today. As you know she is a 81 year old right-handed female with a history of Parkinson's disease since 2013. She is seen with her son. Subjective Previous Plan-02/12/2022 Visit: Parkinson's disease: Set an alarm to take your Sinemet consistently on germaine at 9am, 2pm, and 7pm. After a week of doing this, if you are still having wearing off, please let me know and we will discuss options. Chair exercises as you are able Use your walker at all times Look into a falls alert system Appetite: If this continues to be a problem, discuss with Dr. Rabago and perhaps he can increase the mirtazapine Sleep apnea: follow up if you do not hear back from the company Depression and anxiety: continue medication and counseling Interval History: She is in assisted living and said she is getting more accustomed to it. She likes the staff. The director and product strategy director have to chip into cook since the [employer] cook and this has been good from a food standpoint. She is still losing weight as she said she lost interest in eating but with this cook it may be better. She is engaging in the activities and has a nice room and patio, but does miss being at home. Movement Disorders Medications Schedule - as of the start of the visit: Medications 7am 12pm 5pm Bedtime Sinemet 25/100 1.5 1.5 1.5 Effexor Mirtazapine 7.5mg 1 Parkinson's Motor Complications Medication benefit onset: 30 minutes Medication duration: (Comment: 4-4.5) Wearing off: yes (Comment: She will have tremor when it wears off.) Painful off-state dystonia: no Dyskinesia: no Prior Anti-Parkinson Therapies Carbidopa/Levodopa Questionnaires: In addition, the following areas that may be affected by abnormal involuntary movements were evaluated: Daily activities Difficulties with eating: Difficulties in dressing: Difficulties with hygiene activities: Difficulties with handwriting: Difficulties with doing hobbies and other activities: Difficulties turning in bed: Difficulties getting out of bed, car or chair: Tremors/Gait/Balance Shaking or tremors: Yes Walking and balance problems: Yes -uese a walker Number of falls in the Last Month: 1 fall-took laundry down to laundry room but all washers were full and another woman tried to help her and she got her feet caught and fell. She needed help getting help getting up and only had a little scrape. Gait freezing: Autonomic/Pain Lightheadeness on standing: Urinary problems: Has had UTIs, incontinence and has cloudy urine currently Constipation problems: Pain and other sensations: Speech/Swallowing Speech problems: No Drooling: Chewing and swallowing problems: Mp Sleep/Fatigue Sleep problems: She sleeps well but falls asleep in her chair so does not always put her Cpap on. Daytime sleepiness: Sometimes Fatigue: Mood/Behavior Depression: Most of the time if she has a good morning, she had a good day all day. Anxiety: This has improved and is not as bad as it used to be. She really likes her counselor. 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 MoCA Cognitive assessment: 29 (02/03/2021) Hallucinations and delusions: no Apathy: yes Impulse control disorder: No Not currently but her son said she ordered a lot online or on TV, $15/month on lottery tickets (in past) Palliative Concerns: Caregiver burden: In assisted living so now less stress on son and daughter in law Spiritual concerns: No Advanced directives on file: No Palliative services: No Therapy and Exercise: Last PT Date: Current June 2022 Last OT Date: Last ST Date: Current June 2022 Exercises Regularly: No ALLERGIES Allergen Reactions Hydrocodone-Acetami* Mental Status Change Adhesive Tape (Sridevi* Rash Bupropion Mental Status Change hallucinations Latex, Natural Rubb* Rash Rosuvastatin Calcium (more content not included)... [facility] 07-08-2022 Instructions Gloria Perez APRN.ELDON - 07/08/2022 3:56 PM EDT It was a pleasure to see you today. We addressed the following diagnoses: Parkinson's disease (hcc) (primary encounter diagnosis) Depression with anxiety My recommendations are as follows: 07/08/2022 Visit: Parkinson's disease: Continue your current medication schedule Join the exercise class they offer there Continue physical therapy and occupational therapy Depression and anxiety: Continue venlafaxine and mirtazapine as scheduled Continue therapy I am checking you for a UTI Movement Disorders Medication Schedule: Medications 7am 12pm 5pm Bedtime Sinemet 25/100 1.5 1.5 1.5 Effexor 150mg 1 Effexor 75mg 1 Mirtazapine 7.5mg 1 Return in about 6 months (around 01/07/2023). If there are any concerns before your next visit, please call or you can send a message through [employer]. You can also now schedule and select appointments through [employer]. Gloria Perez APRN.[employer] documented in this encounter [facility] 07-08-2022 History of Presen t illness Narrative [facility] - FOLLOW UP EVALUATION Honey Rabago DO, DO [address] [place] [facility] [address] Dear Honey Rabago DO, DO: I had the pleasure of seeing Ms. Barker for follow-up today. As you know she is a 81 year old right-handed female with a history of Parkinson's disease since 2013. She is seen with her son. Subjective Previous Plan-02/12/2022 Visit: Parkinson's disease: Set an alarm to take your Sinemet consistently on germaine at 9am, 2pm, and 7pm. After a week of doing this, if you are still having wearing off, please let me know and we will discuss options. Chair exercises as you are able Use your walker at all times Look into a falls alert system Appetite: If this continues to be a problem, discuss with Dr. Rabago and perhaps he can increase the mirtazapine Sleep apnea: follow up if you do not hear back from the company Depression and anxiety: continue medication and counseling Interval History: She is in assisted living and said she is getting more accustomed to it. She likes the staff. The director and product strategy director have to chip into cook since the [employer] cook and this has been good from a food standpoint. She is still losing weight as she said she lost interest in eating but with this cook it may be better. She is engaging in the activities and has a nice room and patio, but does miss being at home. Movement Disorders Medications Schedule - as of the start of the visit: Medications 7am 12pm 5pm Bedtime Sinemet 25/100 1.5 1.5 1.5 Effexor Mirtazapine 7.5mg 1 Parkinson's Motor Complications Medication benefit onset: 30 minutes Medication duration: (Comment: 4-4.5) Wearing off: yes (Comment: She will have tremor when it wears off.) Painful off-state dystonia: no Dyskinesia: no Prior Anti-Parkinson Therapies Carbidopa/Levodopa Questionnaires: In addition, the following areas that may be affected by abnormal involuntary movements were evaluated: Daily activities Difficulties with eating: Difficulties in dressing: Difficulties with hygiene activities: Difficulties with handwriting: Difficulties with doing hobbies and other activities: Difficulties turning in bed: Difficulties getting out of bed, car or chair: Tremors/Gait/Balance Shaking or tremors: Yes Walking and balance problems: Yes -uese a walker Number of falls in the Last Month: 1 fall-took laundry down to laundry room but all washers were full and another woman tried to help her and she got her feet caught and fell. She needed help getting help getting up and only had a little scrape. Gait freezing: Autonomic/Pain Lightheadeness on standing: Urinary problems: Has had UTIs, incontinence and has cloudy urine currently Constipation problems: Pain and other sensations: Speech/Swallowing Speech problems: No Drooling: Chewing and swallowing problems: Mp Sleep/Fatigue Sleep problems: She sleeps well but falls asleep in her chair so does not always put her Cpap on. Daytime sleepiness: Sometimes Fatigue: Mood/Behavior Depression: Most of the time if she has a good morning, she had a good day all day. Anxiety: This has improved and is not as bad as it used to be. She really likes her counselor. 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 MoCA Cognitive assessment: 29 (02/03/2021) Hallucinations and delusions: no Apathy: yes Impulse control disorder: No Not currently but her son said she ordered a lot online or on TV, $15/month on [employer] tickets (in past) Palliative Concerns: Caregiver burden: In assisted living so now less stress on son and daughter in law Spiritual concerns: No Advanced directives on file: No Palliative services: No Therapy and Exercise: Last PT Date: Current June 2022 Last OT Date: Last ST Date: June 2022 Exercises Regularly: No ALLERGIES Allergen Reactions Hydrocodone-Acetami* Mental Status Change Adhesive Tape (Sridevi* Rash Bupropion Mental Status Change hallucinations Latex, Natural Rubb* Rash Rosuvastatin Calcium Unknown Current Outpatient Medications Medication Sig metoprolol tartrate, short acting, (LOPRESSOR) 25 mg tablet Take 25 mg by mouth twice daily. polyethylene glycol 3350 17 gram packet Take 17 g by mouth once daily. Dissolve dose in 4 - 8 ounces of liquid and take as directed. ketoconazole (NIZORAL) 2 % shampoo Apply to affected area two times a week. diclofenac sodium 10% topical gel (CPD) Apply to affected area. Fluocinolone-Shower Cap 0.01 % oil by scalp route. carbidopa-levodopa (SINEMET 25-100) 25-100 mg per tablet Take 1.5 tablets by mouth three times daily. cyanocobalamin (VITAMIN B-12) 500 mcg tablet Take 2 tablets by mouth once daily. Mirtazapine (REMERON) 7.5 mg tablet Take 7.5 mg by mouth daily at bedtime. gabapentin (NEURONTIN) 300 mg capsule Take 300 mg by mouth daily at bedtime. metoprolol tartrate, short acting, (LOPRESSOR) 50 mg tablet TAKE 1 & 1/2 (ONE & ONE-HALF) TABLETS BY MOUTH TWICE DAILY WITH FOOD venlafaxine ER (EFFEXOR XR) 75 mg 24 hr capsule Take 75 mg by mouth. FREESTAmbature VIVIAN 2 SENSOR kit apply 1 SENSOR to back OF UPPER ARM REMOVE AND REPLACE every 14 days metFORMIN (GLUCOPHAGE) 500 mg tablet Take 1 tablet by mouth once daily. atorvastatin (LIPITOR) 40 mg tablet Take 40 mg by mouth once daily. cholecalciferol (VITAMIN D3) 5,000 unit tab Take by mouth once daily. warfarin (COUMADIN) 2 mg tablet 1 tablet once daily. venlafaxine ER (EFFEXOR XR) 150 mg 24 hr capsule 150 mg once daily. levothyroxine (SYNTHROID) 75 mcg tablet once daily. omeprazole (PRILOSEC) 20 mg capsule 20 mg once daily. vit C/vit E ac/lut/copper/zinc (PRESERVISION LUTEIN ORAL) Take by mouth twice daily. diclofenac (VOLTAREN) 1 % topical gel JANUVIA 100 mg tablet Take 50 mg by mouth once daily. warfarin (COUMADIN) 4 mg tablet No current facility-administered medications for this visit. Objective Vital Signs: Ht 167.6 cm (5' 6 ) Wt 85.1 kg (187 lb 11.2 oz) SpO2 98% BMI 30.30 kg/m Orthostatic Vitals: Sitting: BP 118/63 Pulse 83 Standing: BP 103/61 Pulse 90 No LMP recorded. Patient is postmenopausal. Body mass index is 30.3 kg/m . Movement Disorders Scales Performed: MDS-UPDRS Motor subscale condition of exam Medication Off/On/Naiive ON Time of UPDRS 1545 Time of Last Medication 1230 Last Medication Taken DBS Right N/A DBS Left N/A MDS-UPDRS Motor subscale scores Speech 1-Slight. Loss of modulation, diction or volume, but still all words easy to understand. Facial Expression 1-Slight. Minimal masked facies manifested only by decreased frequency of blinking. Finger Taps Right 2-Mild. a) 3 to 5 interruptions during tapping, b) mild slowing, c) the amplitude decrements midway in the 10-tap sequence. Finger Taps Left 2-Mild. a) 3 to 5 interruptions during tapping, b) mild slowing, c) the amplitude decrements midway in the 10-tap sequence. Hand Movements Right 2-Mild. a) 3 to 5 interruptions during the movements, b) mild slowing, c) the amplitude decrements midway in the task. Hand Movements Left 2-Mild. a) 3 to 5 interruptions during the movements, b) mild slowing, c) the amplitude decrements midway in the task. Arm Movements Right 2-Mild. a) 3 to 5 interruptions during the movements, b) mild slowing, c) the amplitude decrements midway in the sequence. Arm Movements Left 2-Mild. a) 3 to 5 interruptions during the movements, b) mild slowing, c) the amplitude decrements midway in the sequence. Toe Taps Right 1-Slight. a) the regular rhythm is broken with one or two interruptions or hesitations of the tapping movement, b) slight slowing, c) the amplitude decrements near the end of the ten taps. Toe Taps Left 1-Slight. a) the regular rhythm is broken with one or two interruptions or hesitations of the tapping movement, b) slight slowing, c) the amplitude decrements near the end of the ten taps. Leg Agility Right 1-Slight. a) the regular rhythm is broken with one or two interruptions or hesitations of the movement, b) slight slowing, c) the amplitude decrements near the end of the task. Leg Agility Left 2-Mild. a) 3 to 5 interruptions during the movements, b) mild slowness, c) the amplitude decrements midway in the task. Arise From Chair 2-Mild. Pushes self up from arms of chair without difficulty. Gait 3-Moderate. Requires an assistance device for safe walking (walking stick, walker) but not a person. Gait Freezing 0-Normal. No freezing. Posture Stability Posture 2-Mild. Definite flexion, scoliosis or leaning to one side, but patient can correct posture to normal posture when asked to do so. Body Bradykinesia 1-Slight. Slight global slowness and poverty of spontaneous movements. Postural Tremor Hand Right 0-Normal. No tremor. Postural Tremor Hand Left 0-Normal. No tremor. Kinetic Tremor Right 1-Slight. Tremor is present but less than 1cm in amplitude. Kinetic Tremor Left 0-Normal. No tremor. Rest Tremor Amplitude Right Upper Extremity 1-Slight. < 1 cm in maximal amplitude. Rest Tremor Amplitude Left Upper Extremity 0-Normal. No tremor. Rest Tremor Amplitude Right Lower Extremity 0-Normal. No tremor. Rest Tremor Amplitude Right Lower Extremity 0-Normal. No tremor. Rest Tremor Amplitude Lip/Jaw 1-Slight. < 1 cm in maximal amplitude. Rest Tremor Constancy 2-Mild. Tremor at rest is present 26-50% of the entire examination period. Assessment and Plan: Assessment Ms. Barker is a right-handed 81 year old year old female with Parkinson's disease since 2013. She is getting acclimated to living in an assisted living facility. Overall, she is stable and her mood is the best I have seen in quite some time. There are not any changes necessary today but I am going to have her checked for a urinary tract infection as she gets these frequently and she is currently having symptoms. Orders for this were written down to be done at her facility and her primary care provider to be contacted if positive. The following are the current problems noted and addressed during this visit: Parkinson's disease (hcc) (primary encounter diagnosis) Depression with anxiety Plan 07/08/2022 Visit: Parkinson's disease: Continue your current medication schedule Join the exercise class they offer there Continue physical therapy and occupational therapy Depression and anxiety: Continue venlafaxine and mirtazapine as scheduled Continue therapy I am checking you for a UTI Updated Movement Disorders Medication Schedule: Medications 7am 12pm 5pm Bedtime Sinemet 25/100 1.5 1.5 1.5 Effexor 150mg 1 Effexor 75mg 1 Mirtazapine 7.5mg 1 Return at or around: 01/07/23 Level of service : 26325 (40-54 min). Time spent 47 min on the day of service, which included preparing to see the patient, [id number] patient care, completing clinical documentation, obtaining and/or reviewing separately obtained history, performing a medically appropriate examination, counseling and educating the patient/family/caregiver, and ordering medications, tests, or procedures. Gloria Perez APRN.CNP documented in this encounter [facility] 04-13-2022 Miscellaneous Notes Order pended Last OV 02/12/22 Next OV 07/08/22 Routing to provider for review Patient has been identified by name and date of : Yes Requested Prescriptions Pending Prescriptions Disp Refills carbidopa-levodopa (SINEMET 25-100) 25-100 mg per tablet 405 tablet 3 Sig: Take 1.5 tablets by mouth three times daily. RX INSTRUCTIONS: Patient aware RX will be sent to pharmacy. No need to notify patient. Belen Tim documented in this encounter [facility] 02-15-2022 Miscellaneous Notes I tried callingGina, the child protective services social worker in her primary care provider's office. I left a message requesting a call back. Gloria Perez APRN-ELDON documented in this encounter [facility] 12-15-2021 Evaluation note Encounter Date Diagnosis Assessment Notes Dec, Medication monitoring encounter (ICD-10 - Z51.81) Referring Provider: Honey Rabago Diagnosis: DVT INR Goal: 2-3 INR: 2.0 ( 3) Warfarin Tablet Size: 2mg Tuesday: 2mg Tuesday: 2mg Tuesday: 1mg Tuesday: 2mg : 1mg Tuesday: 2mg Tuesday: 2mg Total Weekly Dose: 12mg Continue current plan. Follow up in 3 weeks. Please call patient's son Jose David at [phone] with results. Spoke to Jose David and discussed above. Spoke with RN Bety ([phone] ) and given above instructions. Patient may get home testing for INRs set-up, will inform clinic if home testing begins. Home Health Order: Draw PT/INR on 01-04-22 Seen by Justin Nicolas PharmD [facility] Other 09-20-2022 Evaluation note* Encounter Date Diagnosis Assessment Notes Treatment Notes Treatment Clinical Notes Nov, Medication monitoring encounter (ICD-10 - Z51.81) Referring Provider: Honey Rabago Diagnosis: DVT INR Goal: 2-3 INR: 2.55 ( 11/30) Warfarin Tablet Size: 2mg Tuesday: 2mg Tuesday: 2mg Tuesday: 1mg Tuesday: 2mg : 1mg Tuesday: 2mg Tuesday: 2mg Total Weekly Dose: 12mg Continue current plan. Patient recently discharged on 11/25 [address] rehab at [facility] with above plan and therapeutic INRs. Follow up in 2 weeks. Please call patient's son Jose David at [phone] with results. Spoke to Jose David and discussed above. Spoke with RN Bety ([phone]) and given above instructions. Patient may get home testing for INRs set-up, will inform clinic if home testing begins. Home Health Order: Draw PT/INR on 12-14-21 Seen by Justin Nicolas PharmD [facility] Other 09-14-2022 Discharge summary Author Alcides Moya [facility] November 25, 2021 12:57pm Note Date/Time November 25, 2021 8:50am [facility] [address] [place] [address] Discharge Summary Signed Patient: Alton Barker MR#: [id number] : 1940 Acct:[id number] Age/Sex: 81 / F Adm Date: 2 Loc: Room: 0Z6800-[address]: Alcides Moya MD Copies to: MD Honey Pate,DO~ Providers Date of Discharge: 11/26/21 Discharging Provider: Alcides Moya Primary Care Provider: Honey Rabago Consults: 11/11/21 14:29 Consult to Adult Hospitalist Routine Consult to Dietitian Routine Consult to Occupational Therapy Routine Consult to Physical Therapy Routine Speech Admit Screen Routine 11/11/21 14:31 Consult to Speech Therapy Routine Discharge Diagnosis (1) Compression fracture: (2) Parkinsons disease: (3) Impaired mobility and ADLs: (4) Diabetes: (5) Hypertension: (6) Hyperlipidemia: (7) GERD (gastroesophageal reflux disease): (8) Back pain: Final Diagnosis Final Discharge Diagnosis: as above Summary Hospital Course Hospital course: Rehabilitation course: Tolerated rehabilitation stay without significant complication. Pain well controlled with minimal opioids.We discharged with abdominal binder for comfort. Family present for family instruction session before discharge. They are comfortable with taking her home. She will have home health care, PT OT and nursing. Condition Condition at Discharge: Stable Status at Discharge Overall status at discharge: patient is back to baseline Time Spent with Patient Time spent providing/coordinating discharge services (# min): 50 Specific discharge activities: Total time spent discharging this patient > 30 minutes Greater than 30 minutes spent preparing the patient for discharge including the following: Discussion of the hospital stay with patient and/or family Instructions for continuing care to all relevant caregivers Reviewing discharge plan with medical staff, social work, care management, and nursing staff Supervision of discharge paperwork, medication reconciliation, prescriptions, and outpatient appointments Prescribed necessary DME at discharge when indicated Diagnostic Studies Completed and Pending Studies Pending studies at discharge: 11/26/21 05:00 Prothrombin Time INR IN AM 11/27/21 05:00 Prothrombin Time INR IN AM 11/28/21 05:00 Prothrombin Time INR IN AM 11/29/21 05:00 Prothrombin Time INR IN AM 11/30/21 05:00 Prothrombin Time INR IN AM 12/01/21 05:00 Prothrombin Time INR IN AM 12/02/21 05:00 Prothrombin Time INR IN AM 12/03/21 05:00 Prothrombin Time INR IN AM 12/04/21 05:00 Prothrombin Time INR IN AM 12/05/21 05:00 Prothrombin Time INR IN AM 12/06/21 05:00 Prothrombin Time INR IN AM 12/07/21 05:00 Prothrombin Time INR IN AM 12/08/21 05:00 Prothrombin Time INR IN AM 12/09/21 05:00 Prothrombin Time INR IN AM 12/10/21 05:00 Prothrombin Time INR IN AM 12/11/21 05:00 Prothrombin Time INR IN AM Labs on day of discharge: 11/25/21 06:32: POC Glucose 125 11/25/21 05:34: PT 25.5 H, INR 2.2 Exam Physical Exam Vital Signs: Temp Pulse Resp BP Pulse Ox O2 Del Method 97.7 F 87 17 144/70 H 95 Room Air 11/25/21 04:43 11/25/21 04:43 11/25/21 04:43 11/25/21 04:43 11/25/21 04:43 11/25/21 04:43 Narrative: General: cooperative, comfortable HENMT Head: normal to inspection Eyes General: appearance normal, both eyes and all related structures Neck Neck: normal visual inspection, no lymphadenopathy Resp Effort & Inspection: normal respiratory effort Auscultation: clear to auscultation bilaterally Cardio Rate: regular rate Rhythm: regular rhythm Heart Sounds: S1 normal, S2 normal GI Inspection: normal to inspection Auscultation: normal bowel sounds Neuro Cranial Nerves: CN's II-XI intact bilaterally Cognition: normal cognition Speech: speech abnormal, Some word finding difficulty and hypophonic Motor: strength 5/5 throughout, Bradykinetic Sensory Exam: no sensory deficits noted Plantar Reflexes: Downgoing Deep Tendon Reflexes DTR Comments: 1+ and symmetric Extrem Mild tremor Psych Mood: normal affect Affect: normal affect Endurance fair Discharge Plan Discharge Plan Patient Disposition: Home Health [facility] Activity: Ambulate as Tolerated Diet: Regular Additional Instructions: -Code status: Full code. -Activity: Weight bearing as tolerated. No driving, may ride in car. -Diet: Regular diet. -You should continue to check your fingerstick blood sugar daily at home, prior to breakfast. Keep a log of your blood sugars to review with your primary care provider at your follow up appointment (see below for appointment details). -May continue to wear abdminal binder as needed, for comfort related to back pain. -Home Health to draw a PT/INR (dx:Z79.01) on Tuesday11/30/21, with results to [facility], who will continue to manage your Coumadin dosing, as they were prior to your hospitalization. -Coumadin dosing: Take 2mg every day EXCEPT Tuesday and . Take 1mg on Tuesday and . Your Home Health agency is [facility] ( ). They will usually contact you the day after discharge to schedule a day/time to meet with you at your home to establish care. You have been given prescriptions for new and/or needed medications. These prescriptions are for a one-time fill only, with no re-fills. For further re- fills going forward, you will need to address with your PCP at your follow up appointment, or by calling your PCP?s office prior to the prescriptions running out. NOTE: please call within 24 hours if you need to cancel or change any follow up appointments. Arrive early to all follow up appointments, bring current medication list, photo ID and any insurance card(s) to all future follow ups (listed below). Please remember to wear a mask to all appointments. If you develop any symptoms (cough, fever/chills, shortness of breath, sore throat, nausea/vomiting, etc.) please contact your provider's office to inform them prior to your appointment. Instructions: Preventing Falls ED Prescriptions: New metformin 500 mg Tablet 1,000 mg PO BID.WITH.MEALS 30 Days Qty: 120 0RF venlafaxine 75 mg Capsule,Extended Release 24hr 75 mg PO QPM 30 Days Qty: 30 0RF lidocaine [Lidocaine Pain Relief] 4 % Adhesive Patch,Medicated 1 patch topical QAM 30 Days Qty: 30 0RF polyethylene glycol 3350 [Miralax] 17 gram Powder In Packet 17 g PO BID PRN (Reason: constipation) 30 Days Qty: 1 0RF venlafaxine 150 mg Capsule,Extended Release 24hr 150 mg PO QAM 30 Days Qty: 30 0RF cyanocobalamin (vitamin B-12) 1,000 mcg Tablet 1,000 mcg PO DAILY 30 Days Qty: 30 0RF levothyroxine 75 mcg Tablet 75 mcg PO DAILY@0630 30 Days Qty: 30 0RF omeprazole 20 mg Capsule,Delayed Release(Dr/Ec) 20 mg PO DAILY.AC.BKFAST 30 Days Qty: 30 0RF carbidopa-levodopa 25-100 mg Tablet 1.5 tab PO TID 30 Days Qty: 135 0RF cholecalciferol (vitamin D3) 125 mcg (5,000 unit) Capsule 125 mcg PO DAILY 30 Days Qty: 30 0RF mirtazapine 7.5 mg Tablet 7.5 mg PO QHS 30 Days Qty: 30 0RF metoprolol tartrate 37.5 mg Tablet 75 mg PO BID 30 Days Qty: 120 0RF atorvastatin 40 mg Tablet 40 mg PO QHS 30 Days Qty: 30 0RF acetaminophen 500 mg Tablet 1,000 mg PO TID 30 Days Qty: 180 0RF oxycodone 5 mg Tablet 5 mg PO Q6HR PRN (Reason: pain) 7 Days Qty: 10 0RF Changed warfarin 2 MG tablet 2 mg PO DAILY 30 Days Qty: 1 0RF Label Comments: Rx Instructions: 1 tab daily on Mon, Tu, Wed, Fri, Sat, Sun 0.5 tab daily on Discontinued metformin 500 MG tablet 1,000 mg PO BID.WITH.MEALS Label Comments: omeprazole 40 MG capsule,delayed release(DR/EC) 20 mg PO QAM Label Comments: levothyroxine 75 MCG tablet 75 mcg PO DAILY@0630 Label Comments: metoprolol tartrate 50 MG tablet 75 mg PO BID Label Comments: atorvastatin 40 mg Tablet 40 mg PO QHS cyanocobalamin (vitamin B-12) [Vitamin B-12] 2,000 mcg Tablet Extended Release 2,000 mcg PO DAILY carbidopa-levodopa 25-100 mg tablet 1.5 tab PO TID Label Comments: TAKE 1 & 1/2 (ONE & ONE-HALF) TABLETS BY MOUTH THREE TIMES DAILY cholecalciferol (vitamin D3) [Vitamin D3] 125 mcg (5,000 unit) Tablet 125 mcg PO QAM PreserVision AREDS-2 250-90-40-1 mg Capsule 1 tab PO BID venlafaxine 150 mg capsule,extended release 24hr 150 mg PO QAM Label Comments: TAKE 1 CAPSULE BY MOUTH ONCE DAILY IN THE MORNING WITH FOOD (PLUS 75MG IN EVENING) venlafaxine 75 mg tablet extended release 24hr 75 mg PO QPM Label Comments: TAKE 1 TABLET BY MOUTH ONCE DAILY IN THE EVENING WITH FOOD (PLUS 150MG IN THEMORNING) polyethylene glycol 3350 [Miralax] 17 gram Powder In Packet 17 g PO BID Qty: 0 0RF sennosides-docusate sodium [Stool Softener-Stimulant Laxat] 8.6-50 mg Tablet 2 tab PO BID Qty: 0 0RF oxycodone 5 mg Tablet 5 mg PO Q6HR PRN (Reason: pain) Qty: 0 0RF mirtazapine 7.5 mg Tablet 7.5 mg PO QHS Qty: 0 0RF Warfarin - Pharmacy Dosing [Coumadin Pharmacy Dosing] 1 ea miscellaneous ONCE PRNQty: 0 0RF warfarin [Jantoven] 1 mg Tablet 1 mg PO ONCE Qty: 0 0RF cefdinir 300 mg Capsule 300 mg PO BID 2 Days Qty: 4 0RF acetaminophen 500 mg tablet 1,000 mg PO TID lidocaine [Lidocaine Pain Relief] 4 % adhesive patch,medicated 1 patch topical QAM Other Ambulatory Orders: Initiate Home Health (Routine) Timeframe: [id number] Location: Determined by Patient Ordered By: Alcides Moya Follow Up: Honey Rabago DO [Primary Care Provider] - 11/30/21 3:15 pm (-PCP.) Alcides Moya MD [Active Staff] - (-Rehab Physician. Follow up as/if needed.) Documented By: Alcides Moya MD 11/25/21 0850 Signed By: <Electronically signed by Alcides Moya MD> 11/25/[address] [place] [address] Work Phone: [phone] 294-395009-12-2022 Progress note Author Alcides Moya [facility] November 23, 2021 3:01pm Note Date/Time November 23, 2021 1:36pm [facility] [address] [place] [address] Physiatry(Rehab) Progress Note Signed Patient: Alton Barker MR#: [id number] : 1940 Acct:[id number] Age/Sex: 81 / F Adm Date: 2 Loc: Room: [id number] Type: ADM IN Attending Dr: Alcides Moya MD Copies to: ~ <Elham Mendoza APRN - Last Filed: 11/23/21 14:05> Date of Service: 11/23/2021 Subjective <Elham Mendoza APRN - Last Filed: 11/23/21 14:05> Subjective Narrative: Ms. Barker is a 81 year old female With history of Parkinson's disease, followed at the [facility], admitted to the rehabilitation unit with multifactorialfunctional decline in the setting of Parkinson's exacerbation and compression fracture. She had had some generalized weakness for a few weeks prior to admission. This was in the setting of the loss of her longtime partner of hers. Psychiatry was consulted for worsening depression and mirtazapine was added. Imaging demonstrated L1 compression fracture and mild spinal canal stenosis. Her bowel / bladder incontinence was felt to be more likely related to her Parkinson's disease. Compression fracture managed conservatively. Noted to have E. coli urinary tract infection. Completing antibiotics. Interval history: Patient is eating lunch at the time of exam. She is alert, oriented and answering questions appropriately. Reports poor sleep last night. States, woke up in the middle of the night with back pain. By the time she received her prnpain medication, and when it finally took effect, it was already cutting machine offbearer. I reminded that she can take her pain medication more than once a day (which is what she has been doing), and recommended that she asks for it before she goes to bed. She sometimes forgets to ask for a pain med which was likely the case yesterday. Will instruct nursing to remind and offer the medication to the patient at at bedtime. Otherwise she has no complaint. Her vital signs are within normal limits. She continues to progress in therapy walking 235 feet and functional distances with a wheeled walker SBA. Requires standby assist for bed mobility and all transfers. Chronic conditions are otherwise stable with current management. <Alcides Moya MD - Last Filed: 11/23/21 15:01> Constitutional Constitutional: Reports system reviewed and no additional complaints, except as documented and Reports fatigue Eyes Eyes: Reports system reviewed and no additional complaints, except as documented ENT Ears, Nose, Mouth, and Throat: Reports system reviewed and no additional complaints, except as documented and Reports disequilibrium Cardiovascular Cardiovascular: Reports system reviewed and no additional complaints, except as documented Respiratory Respiratory: Reports system reviewed and no additional complaints, except as documented Gastrointestinal Gastrointestinal: Reports system reviewed and no additional complaints, except as documented and Reports change in bowel habits Genitourinary Genitourinary: Reports system reviewed and no additional complaints, except as documented and Reports urinary incontinence Musculoskeletal Musculoskeletal: Reports system reviewed and no additional complaints, except asdocumented, Reports abnormal gait and Reports back pain Integumentary/Breasts Skin/Breast: Reports system reviewed and no additional complaints, except as documented Neurologic Neurologic: Reports system reviewed and no additional complaints, except as documented, Reports abnormal gait, Reports disequilibrium, Reports localized weakness, Reports lack of coordination and Reports tremor(s) Psychiatric Psychiatric: Reports system reviewed and no additional complaints, except as documented Endocrine Endocrine: Reports system reviewed and no additional complaints, except as documented and Reports fatigue Exam <Elham Mendoza APRN - Last Filed: 11/23/21 14:05> Physical Exam Vital Signs: Temp Pulse Resp BP Pulse Ox O2 Del Method 97.4 F L 98 H 18 104/67 98 Room Air 11/23/21 09:09 11/23/21 09:09 11/23/21 09:09 11/23/21 09:09 11/23/21 09:09 11/23/21 09:30 <Alcides Moya MD - Last Filed: 11/23/21 15:01> Physical Exam Narrative: General: cooperative, comfortable HENMT Head: normal to inspection Eyes General: appearance normal, both eyes and all related structures Neck Neck: normal visual inspection, no lymphadenopathy Resp Effort & Inspection: normal respiratory effort Auscultation: clear to auscultation bilaterally Cardio Rate: regular rate Rhythm: regular rhythm Heart Sounds: S1 normal, S2 normal GI Inspection: normal to inspection Auscultation: normal bowel sounds Neuro Cranial Nerves: CN's II-XI intact bilaterally Cognition: normal cognition Speech: speech abnormal, Some word finding difficulty and hypophonic Motor: strength 5/5 throughout, Bradykinetic Sensory Exam: no sensory deficits noted Plantar Reflexes: Downgoing Deep Tendon Reflexes DTR Comments: 1+ and symmetric Extrem Mild tremor Psych Mood: normal affect Affect: normal affect Endurance fair Objective <Elham Mendoza APRN - Last Filed: 11/23/21 14:05> Labs CBC & Chem 7: 11/18/21 04:53 11/18/21 04:53 Labs: Laboratory Results - last 24 hr 11/23/21 11/23/21 05:22 06:47 PT 33.5 H INR 2.9 POC Glucose 157 Medications and Allergies Allergies and Active Meds: Allergies bupropion [From Wellbutrin] Allergy (Verified 11/04/21 15:50) Hallucinating hydrocodone [From Vicodin] Allergy (Verified 11/04/21 15:50) Unknown Reaction latex Allergy (Verified 11/04/21 15:50) Rash Active Medications Generic Name Dose Route Start Last Admin Trade Name Freq PRN Reason Stop Dose Admin Acetaminophen 1,000 mg 11/11/21 22:00 11/23/21 09:10 Acetaminophen 500 Mg Tablet PO 11/11/22 21:59 1,000 mg TID KAYLIN Administration Al Hydrox/Mg Hydrox/Simethicone 30 ml 11/11/21 14:29 Mag Hydrox/Al Hydrox/Simeth 30 Ml Udc PO 11/11/22 14:28 Q4H PRN Indigestion Atorvastatin Calcium 40 mg 11/11/21 22:00 11/22/21 21:23 Atorvastatin 40 Mg Tablet PO 11/11/22 21:59 40 mg QHS KAYLIN Administration Bisacodyl 10 mg 11/11/21 14:29 Bisacodyl 10 Mg Supp.Rect MD 11/11/22 14:28 DAILY PRN Constipation Carbidopa/Levodopa 1.5 tab 11/11/21 22:00 11/23/21 09:10 Carbidopa/Levodopa 25-100 Mg 1 Tab Tablet PO 11/11/22 21:59 1.5 tab TID KAYLIN Administration Cyanocobalamin 1,000 mcg 11/13/21 09:00 11/23/21 09:10 Cyanocobalamin 1,000 Mcg Tablet PO 11/13/22 08:59 1,000 mcg DAILY KAYLIN Administration Docusate Sodium 100 mg 11/11/21 14:29 Docusate 100 Mg Capsule PO 11/11/22 14:28 BID PRN Constipation Docusate Sodium 283 mg 11/11/21 14:29 Docusate Enema 283 Mg/5 Ml Enema MD 11/11/22 14:28 DAILY PRN Constipation Lactulose 30 gm 11/11/21 14:29 Lactulose 20 Gm/30 Ml Udc PO 11/11/22 14:28 DAILY PRN Constipation Levothyroxine Sodium 75 mcg 11/12/21 06:30 11/23/21 06:45 Levothyroxine 75 Mcg Tablet PO 11/12/22 06:29 Not Given DAILY@0630 KAYLIN Lidocaine 1 patch 11/12/21 09:00 11/23/21 09:10 Lidocaine 4% Adh..Patch TOPICAL 11/12/22 08:59 1 patch QAM KAYLIN Administration Metformin HCl 1,000 mg 11/11/21 17:00 11/23/21 09:10 Metformin 500 Mg Tablet PO 11/11/22 16:59 1,000 mg BID.WITH.MEALS KAYLIN Administration Metoprolol Tartrate 75 mg 11/11/21 21:00 11/23/21 09:09 Metoprolol Tartrate 37.5 Mg Tablet PO 11/11/22 20:59 75 mg BID KAYLIN Administration Mirtazapine 7.5 mg 11/11/21 22:00 11/22/21 21:23 Mirtazapine 7.5 Mg Tablet PO 11/11/22 21:59 7.5 mg QHS KAYLIN Administration Non-Formulary 1 each 11/23/21 09:30 11/23/21 09:30 Preservision Areds 2 PO 11/23/22 09:29 1 each BID KAYLIN Administration Omeprazole 20 mg 11/12/21 07:30 11/23/21 06:47 Omeprazole 20 Mg Capsule. PO 11/12/22 07:29 20 mg DAILY.AC.BKFAST KAYLIN Administration Oxycodone HCl 5 mg 11/11/21 14:33 11/23/21 03:51 Oxycodone Ir 5 Mg Tablet PO 5 mg Q6HR PRN Administration pain Polyethylene Glycol 17 gm 11/12/21 12:26 11/19/21 09:58 Polyethylene Glycol 3350 17 Gm Powd.Pack PO 11/11/22 20:59 17 gm BID PRN Administration constipation Senna/Docusate Sodium 2 tab 11/11/21 21:00 11/12/21 08:43 Sennosides/Docusate 8.6-50mg 1 Tab Tablet PO 11/11/22 20:59 2 tab BID KAYLIN Administration Sennosides 2 tab 11/12/21 12:00 Sennosides 8.6 Mg Tablet PO 11/12/22 11:59 DAILY@12 PRN If no BM in 2 days Sodium Chloride 0 ml 11/11/21 14:29 11/18/21 07:39 Sodium Chloride 0.9 % 10 Ml Syringe IV-PUSH 11/11/22 14:28 10 ml PRN PRN Administration Flush Venlafaxine HCl 75 mg 11/11/21 21:00 11/22/21 21:23 Venlafaxine Er 75 Mg Cap.Er.24h PO 11/11/22 20:59 75 mg QPM KAYLIN Administration Venlafaxine HCl 150 mg 11/12/21 09:00 11/23/21 09:09 Venlafaxine Er 150 Mg Cap.Er.24h PO 11/12/22 08:59 150 mg QAM KAYLIN Administration Vitamin D 125 mcg 11/12/21 09:00 11/23/21 09:10 Cholecalciferol 125 Mcg (5,000 Units) Capsule PO 11/12/22 08:59 125 mcg DAILY KAYLIN Administration Warfarin Sodium 1 each 11/11/21 15:33 Warfarin - Pharmacy Dosing MISCELLANE 11/11/22 15:32 ONCE PRN zz.Pharmacy Note Protocol Assessment/Plan <Elham Mendoza APRN - Last Filed: 11/23/21 14:05> Assessment/Plan (1) Compression fracture: Status: Acute (2) Parkinsons disease: Code(s): G20 - Parkinson's disease Status: Acute (3) Impaired mobility and ADLs: Code(s): Z74.09 - Other reduced mobility; Z78.9 - Other specified health status Status: Acute (4) Diabetes: Code(s): E11.9 - Type 2 diabetes mellitus without complications Status: Acute (5) Hypertension: Code(s): I10 - Essential (primary) hypertension Status: Acute (6) Hyperlipidemia: Code(s): E78.5 - Hyperlipidemia, unspecified Status: Acute (7) GERD (gastroesophageal reflux disease): Code(s): K21.9 - Gastro-esophageal reflux disease without esophagitis Status: Acute (8) Back pain: Code(s): M54.9 - Dorsalgia, unspecified Status: Acute Plan 81-year-old female with history of Parkinson's disease admitted to the rehabilitation unit with functional decline secondary to Parkinson's exacerbation and L1 compression fracture. Patient seems to be tolerating therapywell with intermittent back pain. Leg swelling appears to have improved with increase in activity. * She is doing well in therapy, progressing towards functional goals. Had an family earlier today, it went well and she is scheduled to be discharged home on Tuesday afternoon. * She complains of not sleeping well due to increased pain at bedtime. Reminded to take pain medications before she goes to bed, nursing was also made aware to ask the patient about pain levels at HS. * Repeat labs tomorrow. Hospitalist to assist with management of comorbid medical conditions Pain control: Wean opioids as tolerated.? On scheduled Tylenol.? Topical modalities as needed.? Brace for comfort PRN. Bowel and bladder: Incontinent of bowel and bladder.? Monitor. Not new. Skin: No issues on rehab admission. Sleep: On low-dose mirtazapine. This was recently added by psychiatry. Patient does endorse some depressive symptoms, which she attributes to recent in the family DVT prophylaxis: Covered with Coumadin. Hx of DVT Functional status:Needs assistance with mobility and self-care. Discharge planning: Home on Tuesday. <Alcides Moya MD - Last Filed: 11/23/21 15:01> Assessment/Plan (1) Compression fracture: (2) Parkinsons disease: (3) Impaired mobility and ADLs: (4) Diabetes: (5) Hypertension: (6) Hyperlipidemia: (7) GERD (gastroesophageal reflux disease): (8) Back pain: Plan: I completed a substantive portion of this encounter, the medical decision makingportion of this note in its entirety, including Allied health note review, nursing note review, recruitment consultant note review, discussion with nursing and case management, and more than 50% of my time was spent on counseling and coordination of care, time spent 18 minutes Patient was personally seen by me, Dr. Moya, on the day of encounter, reviewed the history and the relevant portions of the chart, including current orders, allied health and recruitment consultant notes, labs/imaging and performed day elements of exam and I formulated the plan of care and facilitated the medical decision making and confirmed the nurse practitioner note, as above Can continue abdominal binder as needed for comfort. Home on Tuesday Documented By: Elham Mendoza APRN 11/23/21 1 333 Signed By: <Electronically signed by HEIDI Mendoza> 11/23/21 1406 <Electronically signed by Alcides Moya MD> 11/23/[address] [facility] Work Phone: [phone]) 740-625309-12-2022 Progress note Author Alcides Moya [facility] November 23, 2021 2:39pm Note Date/Time November 20, 2021 1:19pm [facility] [address] [place] [address] Physiatry(Rehab) Progress Note Signed Patient: Alton Barker MR#: [id number] : 1940 Acct:[id number] Age/Sex: 81 / F Adm Date: 2 Loc: Room: 6M8964-2 Type: ADM IN Attending Dr: Alcides Moya MD Copies to: ~ <Elham Mendoza APRN - Last Filed: 11/20/21 13:21> Date of Service: 11/20/2021 Subjective <Elham Mendoza APRN - Last Filed: 11/20/21 13:21> Subjective Narrative: Ms. Barker is a 81 year old female With history of Parkinson's disease, followed at the [facility], admitted to the rehabilitation unit with multifactorialfunctional decline in the setting of Parkinson's exacerbation and compression fracture. She had had some generalized weakness for a few weeks prior to admission. This was in the setting of the loss of her longtime partner of hers. Psychiatry was consulted for worsening depression and mirtazapine was added. Imaging demonstrated L1 compression fracture and mild spinal canal stenosis. Her bowel / bladder incontinence was felt to be more likely related to her Parkinson's disease. Compression fracture managed conservatively. Noted to have E. coli urinary tract infection. Completing antibiotics. Interval history: Patient examined while sitting in recliner. She is alert oriented, pleasant andcooperative with exam. She endorses some back discomfort. States, increased pain throughout the night,which prevented her from sleeping. Denies any dizziness or lightheadedness. Blood pressure is softer but normal. The rest of the vitals are within normal limits. Reports occasional visual hallucinations at night. Continues to progress in therapy. Was able to ambulate 280 feet contact- guard/standby assist. Standby assist for bed mobility and transfers. Chronic conditions are otherwise stable with current management.She is anticoagulated. <Alcides Moya MD - Last Filed: 11/23/21 14:39> Constitutional Constitutional: Reports system reviewed and no additional complaints, except as documented and Reports fatigue Eyes Eyes: Reports system reviewed and no additional complaints, except as documented ENT Ears, Nose, Mouth, and Throat: Reports system reviewed and no additional complaints, except as documented and Reports disequilibrium Cardiovascular Cardiovascular: Reports system reviewed and no additional complaints, except as documented Respiratory Respiratory: Reports system reviewed and no additional complaints, except as documented Gastrointestinal Gastrointestinal: Reports system reviewed and no additional complaints, except as documented and Reports change in bowel habits Genitourinary Genitourinary: Reports system reviewed and no additional complaints, except as documented and Reports urinary incontinence Musculoskeletal Musculoskeletal: Reports system reviewed and no additional complaints, except asdocumented, Reports abnormal gait and Reports back pain Integumentary/Breasts Skin/Breast: Reports system reviewed and no additional complaints, except as documented Neurologic Neurologic: Reports system reviewed and no additional complaints, except as documented, Reports abnormal gait, Reports disequilibrium, Reports localized weakness, Reports lack of coordination and Reports tremor(s) Psychiatric Psychiatric: Reports system reviewed and no additional complaints, except as documented Endocrine Endocrine: Reports system reviewed and no additional complaints, except as documented and Reports fatigue Exam <Elham Mendoza APRN - Last Filed: 11/20/21 13:21> Physical Exam Vital Signs: Temp Pulse Resp BP Pulse Ox O2 Del Method 97.3 F L 98 H 18 104/64 97 Room Air 11/20/21 09:34 11/20/21 09:34 11/20/21 09:34 11/20/21 09:42 11/20/21 09:34 11/20/21 09:35 <Alcides Moya MD - Last Filed: 11/23/21 14:39> Physical Exam Narrative: General: cooperative, comfortable HENMT Head: normal to inspection Eyes General: appearance normal, both eyes and all related structures Neck Neck: normal visual inspection, no lymphadenopathy Resp Effort & Inspection: normal respiratory effort Auscultation: clear to auscultation bilaterally Cardio Rate: regular rate Rhythm: regular rhythm Heart Sounds: S1 normal, S2 normal GI Inspection: normal to inspection Auscultation: normal bowel sounds Neuro Cranial Nerves: CN's II-XI intact bilaterally Cognition: normal cognition Speech: speech abnormal, Some word finding difficulty and hypophonic Motor: strength 5/5 throughout, Bradykinetic Sensory Exam: no sensory deficits noted Plantar Reflexes: Downgoing Deep Tendon Reflexes DTR Comments: 1+ and symmetric Extrem Mild tremor Psych Mood: normal affect Affect: normal affect Endurance fair Objective <Elham Mendoza APRN - Last Filed: 11/20/21 13:21> Labs CBC & Chem 7: 11/18/21 04:53 11/18/21 04:53 Labs: Laboratory Results - last 24 hr 11/19/21 11/20/21 11/20/21 05:20 05:10 05:58 PT 26.6 H INR 2.3 POC Glucose 129 POC Glucose Comment Iron 56 TIBC 242 L Iron Saturation 23.0 Transferrin 173 L 11/20/21 07:13 PT INR POC Glucose 112 POC Glucose Comment Glu2: cleaned meter Iron TIBC Iron Saturation Transferrin Medications and Allergies Allergies and Active Meds: Allergies bupropion [From Wellbutrin] Allergy (Verified 11/04/21 15:50) Hallucinating hydrocodone [From Vicodin] Allergy (Verified 11/04/21 15:50) Unknown Reaction latex Allergy (Verified 11/04/21 15:50) Rash Active Medications Generic Name Dose Route Start Last Admin Trade Name Freq PRN Reason Stop Dose Admin Acetaminophen 1,000 mg 11/11/21 22:00 11/20/21 09:37 Acetaminophen 500 Mg Tablet PO 11/11/22 21:59 1,000 mg TID KAYLIN Administration Al Hydrox/Mg Hydrox/Simethicone 30 ml 11/11/21 14:29 Mag Hydrox/Al Hydrox/Simeth 30 Ml Udc PO 11/11/22 14:28 Q4H PRN Indigestion Atorvastatin Calcium 40 mg 11/11/21 22:00 11/19/21 20:29 Atorvastatin 40 Mg Tablet PO 11/11/22 21:59 40 mg QHS KAYLIN Administration Bisacodyl 10 mg 11/11/21 14:29 Bisacodyl 10 Mg Supp.Rect MD 11/11/22 14:28 DAILY PRN Constipation Carbidopa/Levodopa 1.5 tab 11/11/21 22:00 11/20/21 09:37 Carbidopa/Levodopa 25-100 Mg 1 Tab Tablet PO 11/11/22 21:59 1.5 tab TID KAYLIN Administration Cyanocobalamin 1,000 mcg 11/13/21 09:00 11/20/21 09:37 Cyanocobalamin 1,000 Mcg Tablet PO 11/13/22 08:59 1,000 mcg DAILY KAYLIN Administration Docusate Sodium 100 mg 11/11/21 14:29 Docusate 100 Mg Capsule PO 11/11/22 14:28 BID PRN Constipation Docusate Sodium 283 mg 11/11/21 14:29 Docusate Enema 283 Mg/5 Ml Enema MD 11/11/22 14:28 DAILY PRN Constipation Lactulose 30 gm 11/11/21 14:29 Lactulose 20 Gm/30 Ml Udc PO 11/11/22 14:28 DAILY PRN Constipation Levothyroxine Sodium 75 mcg 11/12/21 06:30 11/20/21 05:59 Levothyroxine 75 Mcg Tablet PO 11/12/22 06:29 75 mcg DAILY@0630 KAYLIN Administration Lidocaine 1 patch 11/12/21 09:00 11/20/21 09:37 Lidocaine 4% Adh..Patch TOPICAL 11/12/22 08:59 1 patch QAM KAYLIN Administration Metformin HCl 1,000 mg 11/11/21 17:00 11/20/21 09:37 Metformin 500 Mg Tablet PO 11/11/22 16:59 1,000 mg BID.WITH.MEALS KAYLIN Administration Metoprolol Tartrate 75 mg 11/11/21 21:00 11/20/21 09:42 Metoprolol Tartrate 37.5 Mg Tablet PO 11/11/22 20:59 75 mg BID KAYLIN Administration Mirtazapine 7.5 mg 11/11/21 22:00 11/19/21 20:29 Mirtazapine 7.5 Mg Tablet PO 11/11/22 21:59 7.5 mg QHS KAYLIN Administration Omeprazole 20 mg 11/12/21 07:30 11/20/21 06:37 Omeprazole 20 Mg Capsule. PO 11/12/22 07:29 20 mg DAILY.AC.BKFAST KAYLIN Administration Oxycodone HCl 5 mg 11/11/21 14:33 11/20/21 03:17 Oxycodone Ir 5 Mg Tablet PO 5 mg Q6HR PRN Administration pain Polyethylene Glycol 17 gm 11/12/21 12:26 11/19/21 09:58 Polyethylene Glycol 3350 17 Gm Powd.Pack PO 11/11/22 20:59 17 gm BID PRN Administration constipation Senna/Docusate Sodium 2 tab 11/11/21 21:00 11/12/21 08:43 Sennosides/Docusate 8.6-50mg 1 Tab Tablet PO 11/11/22 20:59 2 tab BID KAYLIN Administration Sennosides 2 tab 11/12/21 12:00 Sennosides 8.6 Mg Tablet PO 11/12/22 11:59 DAILY@12 PRN If no BM in 2 days Sodium Chloride 0 ml 11/11/21 14:29 11/18/21 07:39 Sodium Chloride 0.9 % 10 Ml Syringe IV-PUSH 11/11/22 14:28 10 ml PRN PRN Administration Flush Sodium Chloride 0 ml 11/11/21 22:00 11/20/21 05:59 Sodium Chloride 0.9 % 10 Ml Syringe IV-PUSH 11/11/22 21:59 10 ml QSHIFT KAYLIN Administration Venlafaxine HCl 75 mg 11/11/21 21:00 11/19/21 20:29 Venlafaxine Er 75 Mg Cap.Er.24h PO 11/11/22 20:59 75 mg QPM KAYLIN Administration Venlafaxine HCl 150 mg 11/12/21 09:00 11/20/21 09:37 Venlafaxine Er 150 Mg Cap.Er.24h PO 11/12/22 08:59 150 mg QAM KAYLIN Administration Vitamin D 125 mcg 11/12/21 09:00 11/20/21 09:37 Cholecalciferol 125 Mcg (5,000 Units) Capsule PO 11/12/22 08:59 125 mcg DAILY KAYLIN Administration Warfarin Sodium 1 each 11/11/21 15:33 Warfarin - Pharmacy Dosing MISCELLANE 11/11/22 15:32 ONCE PRN zz.Pharmacy Note Protocol Warfarin Sodium 2 mg 11/20/21 17:00 Warfarin 2 Mg Tablet PO 11/20/21 17:01 ONCE ONE Assessment/Plan <Elham Mendoza, PANMAN - Last Filed: 11/20/21 13:21> Assessment/Plan (1) Compression fracture: Status: Acute (2) Parkinsons disease: Code(s): G20 - Parkinson's disease Status: Acute (3) Impaired mobility and ADLs: Code(s): Z74.09 - Other reduced mobility; Z78.9 - Other specified health status Status: Acute (4) Diabetes: Code(s): E11.9 - Type 2 diabetes mellitus without complications Status: Acute (5) Hypertension: Code(s): I10 - Essential (primary) hypertension Status: Acute (6) Hyperlipidemia: Code(s): E78.5 - Hyperlipidemia, unspecified Status: Acute (7) GERD (gastroesophageal reflux disease): Code(s): K21.9 - Gastro-esophageal reflux disease without esophagitis Status: Acute (8) Back pain: Code(s): M54.9 - Dorsalgia, unspecified Status: Acute Plan 81-year-old female with history of Parkinson's disease admitted to the rehabilitation unit with functional decline secondary to Parkinson's exacerbation and L1 compression fracture. Patient seems to be tolerating therapy well withintermittent back pain. Leg swelling appears to have improved with increase in activity. * No further episodes of dizziness/lightheadedness * Doing well overall. No significant complaints. * Progresses towards functional baseline. Ambulates household and community distances with a walker contact-guard to standby assist. * FI with family on 11/23/2021. Hospitalist to assist with management of comorbid medical conditions Pain control: Wean opioids as tolerated.? On scheduled Tylenol.? Topical modalities as needed.? Brace for comfort PRN. Bowel and bladder: Incontinent of bowel and bladder.? Monitor. Not new. Skin: No issues on rehab admission. Sleep: On low-dose mirtazapine. This was recently added by psychiatry. Patient does endorse some depressive symptoms, which she attributes to recent in the family DVT prophylaxis: Covered with Coumadin. Hx of DVT Functional status:Needs assistance with mobility and self-care. Discharge planning: Plan for discharge home within 1 week. <Alcides Moya MD - Last Filed: 11/23/21 14:39> Assessment/Plan (1) Compression fracture: (2) Parkinsons disease: (3) Impaired mobility and ADLs: (4) Diabetes: (5) Hypertension: (6) Hyperlipidemia: (7) GERD (gastroesophageal reflux disease): (8) Back pain: Plan: I completed a substantive portion of this encounter, the medical decision makingportion of this note in its entirety, including Allied health note review, nursing note review, recruitment consultant note review, discussion with nursing and case management, and more than 50% of my time was spent on counseling and coordination of care, time spent 16 minutes Patient was personally seen by me, Dr. Moya, on the day of encounter, reviewed the history and the relevant portions of the chart, including current orders, allied health and recruitment consultant notes, labs/imaging and performed day elements of exam and I formulated the plan of care and facilitated the medical decision making and confirmed the nurse practitioner note, as above Documented By: Elham Mendoza APRN 11/20/21 1 310 Signed By: <Electronically signed by HEIDI Mendoza> 11/20/21 1321 <Electronically signed by Alcides Moya MD> 11/23/21 1439 [facility] Work Phone: 1(492) 587-712709-08-2022 Progress note Author Rosa Maria Odell [facility] November 19, 2021 5:37pm Note Date/Time November 19, 2021 4:57pm [facility] [address] [place], [place] [id number] Hospitalist Progress Note Signed Patient: Alton Barker MR#: [id number] : 1940 Acct:[id number] Age/Sex: 81 / F Adm Date: 2 Loc: Room: 6C9747-5 Type: ADM IN Attending Dr: Alcides Moya MD Copies to: ~ Date of Service: 11/19/2021 Subjective Subjective Narrative: Patient seen and examined at bedside, resting comfortably. Reports intermittentback pain from compression fracture worse with movement, pain medications adequately controlling pain. Reporting having bowel movements and tolerating physical therapy well. Denies chest pain or palpitation. No cough, dyspnea, orpain with inspiration.No abdominal pain, nausea or vomiting. No dysuria or retention.No headache or dizziness. No fevers. Exam Physical Exam Vital Signs: Temp Pulse Resp BP Pulse Ox O2 Del Method 97.5 F L 83 20 106/66 98 Room Air 11/19/21 15:32 11/19/21 15:32 11/19/21 15:32 11/19/21 15:32 11/19/21 15:32 11/19/21 15:32 Narrative: CONST- Appears well -developed and well nourished No acute distress. HEAD - Normocephalic and atraumatic EENT-Sclera nonicteric and conjunctive are nonerythemic, moist oral mucosa, pharynx clear NECK-Supple, no cervical lymphadenopathy CARDIAC-normal rate, regular rhythm, normal S1 & S2. PULM-diminished without wheeze or rhonchi, RA, no accessory muscle use or cough noted ABD - Soft. Bowel sounds are normal. No distention No tenderness Objective Lab Results CBC & Chem 7: 11/18/21 04:53 11/18/21 04:53 Meds Allergies and Active Meds Allergies bupropion [From Wellbutrin] Allergy (Verified 11/04/21 15:50) Hallucinating hydrocodone [From Vicodin] Allergy (Verified 11/04/21 15:50) Unknown Reaction latex Allergy (Verified 11/04/21 15:50) Rash Active Meds: Active Medications Generic Name Dose Route Start Last Admin Trade Name Moises PRN Reason Stop Dose Admin Acetaminophen 1,000 mg 11/11/21 22:00 11/19/21 14:47 Acetaminophen 500 Mg Tablet PO 11/11/22 21:59 1,000 mg TID KAYLIN Administration Al Hydrox/Mg Hydrox/Simethicone 30 ml 11/11/21 14:29 Mag Hydrox/Al Hydrox/Simeth 30 Ml Udc PO 11/11/22 14:28 Q4H PRN Indigestion Atorvastatin Calcium 40 mg 11/11/21 22:00 11/18/21 20:37 Atorvastatin 40 Mg Tablet PO 11/11/22 21:59 40 mg QHS KAYLIN Administration Bisacodyl 10 mg 11/11/21 14:29 Bisacodyl 10 Mg Supp.Rect MD 11/11/22 14:28 DAILY PRN Constipation Carbidopa/Levodopa 1.5 tab 11/11/21 22:00 11/19/21 14:46 Carbidopa/Levodopa 25-100 Mg 1 Tab Tablet PO 11/11/22 21:59 1.5 tab TID KAYLIN Administration Cyanocobalamin 1,000 mcg 11/13/21 09:00 11/19/21 09:58 Cyanocobalamin 1,000 Mcg Tablet PO 11/13/22 08:59 1,000 mcg DAILY KAYLIN Administration Docusate Sodium 100 mg 11/11/21 14:29 Docusate 100 Mg Capsule PO 11/11/22 14:28 BID PRN Constipation Docusate Sodium 283 mg 11/11/21 14:29 Docusate Enema 283 Mg/5 Ml Enema MD 11/11/22 14:28 DAILY PRN Constipation Lactulose 30 gm 11/11/21 14:29 Lactulose 20 Gm/30 Ml Udc PO 11/11/22 14:28 DAILY PRN Constipation Levothyroxine Sodium 75 mcg 11/12/21 06:30 11/19/21 04:29 Levothyroxine 75 Mcg Tablet PO 11/12/22 06:29 75 mcg DAILY@0630 KAYLIN Administration Lidocaine 1 patch 11/12/21 09:00 11/19/21 09:58 Lidocaine 4% Adh..Patch TOPICAL 11/12/22 08:59 1 patch QAM KAYLIN Administration Metformin HCl 1,000 mg 11/11/21 17:00 11/19/21 16:32 Metformin 500 Mg Tablet PO 11/11/22 16:59 1,000 mg BID.WITH.MEALS KAYLIN Administration Metoprolol Tartrate 75 mg 11/11/21 21:00 11/19/21 09:58 Metoprolol Tartrate 37.5 Mg Tablet PO 11/11/22 20:59 75 mg BID KAYLIN Administration Mirtazapine 7.5 mg 11/11/21 22:00 11/18/21 20:37 Mirtazapine 7.5 Mg Tablet PO 11/11/22 21:59 7.5 mg QHS KAYLIN Administration Omeprazole 20 mg 11/12/21 07:30 11/19/21 05:32 Omeprazole 20 Mg Capsule. PO 11/12/22 07:29 20 mg DAILY.AC.BKFAST KAYLIN Administration Oxycodone HCl 5 mg 11/11/21 14:33 11/19/21 04:30 Oxycodone Ir 5 Mg Tablet PO 5 mg Q6HR PRN Administration pain Polyethylene Glycol 17 gm 11/12/21 12:26 11/19/21 09:58 Polyethylene Glycol 3350 17 Gm Powd.Pack PO 11/11/22 20:59 17 gm BID PRN Administration constipation Senna/Docusate Sodium 2 tab 11/11/21 21:00 11/12/21 08:43 Sennosides/Docusate 8.6-50mg 1 Tab Tablet PO 11/11/22 20:59 2 tab BID KAYLIN Administration Sennosides 2 tab 11/12/21 12:00 Sennosides 8.6 Mg Tablet PO 11/12/22 11:59 DAILY@12 PRN If no BM in 2 days Sodium Chloride 0 ml 11/11/21 14:29 11/18/21 07:39 Sodium Chloride 0.9 % 10 Ml Syringe IV-PUSH 11/11/22 14:28 10 ml PRN PRN Administration Flush Sodium Chloride 0 ml 11/11/21 22:00 11/19/21 14:49 Sodium Chloride 0.9 % 10 Ml Syringe IV-PUSH 11/11/22 21:59 10 ml QSHIFT KAYLIN Administration Venlafaxine HCl 75 mg 11/11/21 21:00 11/18/21 20:37 Venlafaxine Er 75 Mg Cap.Er.24h PO 11/11/22 20:59 75 mg QPM KAYLIN Administration Venlafaxine HCl 150 mg 11/12/21 09:00 11/19/21 09:58 Venlafaxine Er 150 Mg Cap.Er.24h PO 11/12/22 08:59 150 mg QAM KAYLIN Administration Vitamin D 125 mcg 11/12/21 09:00 11/19/21 09:58 Cholecalciferol 125 Mcg (5,000 Units) Capsule PO 11/12/22 08:59 125 mcg DAILY KAYLIN Administration Warfarin Sodium 1 each 11/11/21 15:33 Warfarin - Pharmacy Dosing MISCELLANE 11/11/22 15:32 ONCE PRN zz.Pharmacy Note Protocol Warfarin Sodium 1 mg 11/19/21 17:00 11/19/21 16:32 Warfarin 1 Mg Tablet PO 11/19/21 17:01 1 mg ONCE ONE Administration A&P - Hospitalist Assessment/Plan (1) Compression fracture: (2) Parkinsons disease: (3) Urinary tract infection: (4) Diabetes: (5) Hypertension: (6) Anemia: Plan L1 compression fracture Parkinson's disease -Further POC per PMR team for rehabilitative therapy, pain control bowel regimen, DVT PPx -Continue Sinemet Anemia ?No signs and symptoms of bleeding ?Was on warfarin for chronic DVT but discontinued by PMR team Hemoglobin on 11/18 of 10.9 previous hemoglobin 12.5 on 11/12 ?We will check iron panel E. coli UTI -Completing course of antibiotics initiated in hospital 11/12 B12 deficiency -Supplement Chronic conditions 1. HLD, HTN?atorvastatin, metoprolol 2. Diabetes?metformin 3. Depression?mirtazapine, venlafaxine 4. Vitamin D deficiency?supplement 5. Chronic anticoagulation with history DVT?pharmacy to manage warfarin 6. Hypothyroid?levothyroxine Labs, vital signs reviewed. Documented By: Amanda Jaimes APRN 11/19/21 1653 Signed By: <Electronically signed by HEIDI Jaimes> 11/19/21 1728 <Electronically signed by Rosa Maria Odell MD> 11/19/21 173 [facility] Work Phone: [phone]) 911-177509-07-2022 Progress note Author Alcides Moya [facility] November 18, 2021 12:40pm Note Date/Time November 17, 2021 10:56am [facility] [address] [place] [address] Physiatry(Rehab) Progress Note Signed Patient: Alton Barker MR#: [id number] : 1940 Acct:[id number] Age/Sex: 81 / F Adm Date: 2 Loc: Room: [address] [place] [address] Type: ADM IN Attending Dr: Alcides Moya MD Copies to: ~ <Fabian Lam DO, RES - Last Filed: 11/17/21 11:49> Date of Service: 11/17/2021 Subjective <Fabian Lam DO, RES - Last Filed: 11/17/21 11:49> Subjective Narrative: Patient does not have any acute concerns. Seems to be tolerating therapy well. She does continue to have intermittent mid-to-low back pain, at times is 0/10 but other times can creep up to 7/10. Patient cannot pinpoint what provokes herdiscomfort. Not explicitly related to physical therapy. Notes that her pain isworse the longer that she sits, and is wanting to avoid becoming completely sedentary. No pain shooting down the legs. Review of Systems <Fabian Lam DO, RES - Last Filed: 11/17/21 11:49> Review of Systems All other systems reviewed & are negative unless noted below or in HPI <Alcides Moya MD - Last Filed: 11/18/21 12:40> Constitutional Constitutional: Reports system reviewed and no additional complaints, except as documented and Reports fatigue Eyes Eyes: Reports system reviewed and no additional complaints, except as documented ENT Ears, Nose, Mouth, and Throat: Reports system reviewed and no additional complaints, except as documented and Reports disequilibrium Cardiovascular Cardiovascular: Reports system reviewed and no additional complaints, except as documented Respiratory Respiratory: Reports system reviewed and no additional complaints, except as documented Gastrointestinal Gastrointestinal: Reports system reviewed and no additional complaints, except as documented and Reports change in bowel habits Genitourinary Genitourinary: Reports system reviewed and no additional complaints, except as documented and Reports urinary incontinence Musculoskeletal Musculoskeletal: Reports system reviewed and no additional complaints, except asdocumented, Reports abnormal gait and Reports back pain Integumentary/Breasts Skin/Breast: Reports system reviewed and no additional complaints, except as documented Neurologic Neurologic: Reports system reviewed and no additional complaints, except as documented, Reports abnormal gait, Reports disequilibrium, Reports localized weakness, Reports lack of coordination and Reports tremor(s) Psychiatric Psychiatric: Reports system reviewed and no additional complaints, except as documented Endocrine Endocrine: Reports system reviewed and no additional complaints, except as documented and Reports fatigue Exam <Fabian Lam DO, RES - Last Filed: 11/17/21 11:49> Physical Exam Vital Signs: Temp Pulse Resp BP Pulse Ox O2 Del Method 97.7 F 88 18 125/67 93 L Room Air 11/17/21 05:10 11/17/21 05:10 11/17/21 05:10 11/17/21 05:10 11/17/21 05:10 11/17/21 05:10 Narrative: General cooperative, comfortable HENT Head: normal to inspection, atraumatic normocephalic Eyes:EOMI, normal sclera, normal conjunctiva, appearance normal Neck: normal visual inspection, no lymphadenopathy Resp Effort & Inspection: normal respiratory effort Auscultation: clear to auscultation bilaterally Cardio Rate: regular rate Rhythm: regular rhythm Heart Sounds: S1 normal, S2 normal GI Inspection: normal to inspection Auscultation: normal bowel sounds Back Midline spinous process tenderness at L1 and T12. Diffuse paraspinal tenderness in this region. Decreased lumbar lordosis. Neuro Cranial Nerves: CN's II-XI intact bilaterally, slight oral tremor, bilateral hand tremor Cognition: normal cognition Speech: speech abnormal, Some word finding difficulty and hypophonic Motor: strength 5/5 throughout, Bradykinetic Sensory Exam: no sensory deficits noted Plantar Reflexes: Downgoing Deep Tendon Reflexes DTR Comments: 1+ and symmetric Extremities Venous stasis dermatitis bilateral lower extremities, minimal edema bilaterally,good peripheral pulses Psych Mood: normal affect Affect: normal affect Endurance fair Objective <Fabian Lam DO, RES - Last Filed: 11/17/21 11:49> Labs CBC & Chem 7: 11/18/21 04:53 11/18/21 04:53 Labs: Laboratory Results - last 24 hr 11/17/21 11/17/21 06:20 06:35 PT 30.8 H INR 2.7 POC Glucose 124 Medications and Allergies Allergies and Active Meds: Allergies bupropion [From Wellbutrin] Allergy (Verified 11/04/21 15:50) Hallucinating hydrocodone [From Vicodin] Allergy (Verified 11/04/21 15:50) Unknown Reaction latex Allergy (Verified 11/04/21 15:50) Rash Active Medications Generic Name Dose Route Start Last Admin Trade Name Freq PRN Reason Stop Dose Admin Acetaminophen 1,000 mg 11/11/21 22:00 11/17/21 08:03 Acetaminophen 500 Mg Tablet PO 11/11/22 21:59 1,000 mg TID KAYLIN Administration Al Hydrox/Mg Hydrox/Simethicone 30 ml 11/11/21 14:29 Mag Hydrox/Al Hydrox/Simeth 30 Ml Udc PO 11/11/22 14:28 Q4H PRN Indigestion Atorvastatin Calcium 40 mg 11/11/21 22:00 11/16/21 21:46 Atorvastatin 40 Mg Tablet PO 11/11/22 21:59 40 mg QHS KAYLIN Administration Bisacodyl 10 mg 11/11/21 14:29 Bisacodyl 10 Mg Supp.Rect MD 11/11/22 14:28 DAILY PRN Constipation Carbidopa/Levodopa 1.5 tab 11/11/21 22:00 11/17/21 08:04 Carbidopa/Levodopa 25-100 Mg 1 Tab Tablet PO 11/11/22 21:59 1.5 tab TID KAYLIN Administration Cyanocobalamin 1,000 mcg 11/13/21 09:00 11/17/21 08:05 Cyanocobalamin 1,000 Mcg Tablet PO 11/13/22 08:59 1,000 mcg DAILY KAYLIN Administration Docusate Sodium 100 mg 11/11/21 14:29 Docusate 100 Mg Capsule PO 11/11/22 14:28 BID PRN Constipation Docusate Sodium 283 mg 11/11/21 14:29 Docusate Enema 283 Mg/5 Ml Enema MD 11/11/22 14:28 DAILY PRN Constipation Lactulose 30 gm 11/11/21 14:29 Lactulose 20 Gm/30 Ml Udc PO 11/11/22 14:28 DAILY PRN Constipation Levothyroxine Sodium 75 mcg 11/12/21 06:30 11/17/21 06:13 Levothyroxine 75 Mcg Tablet PO 11/12/22 06:29 75 mcg DAILY@0630 KAYLIN Administration Lidocaine 1 patch 11/12/21 09:00 11/17/21 08:06 Lidocaine 4% Adh..Patch TOPICAL 11/12/22 08:59 1 patch QAM KAYLIN Administration Metformin HCl 1,000 mg 11/11/21 17:00 11/17/21 08:05 Metformin 500 Mg Tablet PO 11/11/22 16:59 1,000 mg BID.WITH.MEALS KAYLIN Administration Metoprolol Tartrate 75 mg 11/11/21 21:00 11/17/21 08:03 Metoprolol Tartrate 37.5 Mg Tablet PO 11/11/22 20:59 75 mg BID KAYLIN Administration Mirtazapine 7.5 mg 11/11/21 22:00 11/16/21 21:46 Mirtazapine 7.5 Mg Tablet PO 11/11/22 21:59 7.5 mg QHS KAYLIN Administration Omeprazole 20 mg 11/12/21 07:30 11/17/21 06:31 Omeprazole 20 Mg Capsule. PO 11/12/22 07:29 Not Given DAILY.AC.BKFAST KAYLIN Oxycodone HCl 5 mg 11/11/21 14:33 11/17/21 08:04 Oxycodone Ir 5 Mg Tablet PO 5 mg Q6HR PRN Administration pain Polyethylene Glycol 17 gm 11/12/21 12:26 Polyethylene Glycol 3350 17 Gm Powd.Pack PO 11/11/22 20:59 BID PRN constipation Senna/Docusate Sodium 2 tab 11/11/21 21:00 11/12/21 08:43 Sennosides/Docusate 8.6-50mg 1 Tab Tablet PO 11/11/22 20:59 2 tab BID KAYLIN Administration Sennosides 2 tab 11/12/21 12:00 Sennosides 8.6 Mg Tablet PO 11/12/22 11:59 DAILY@12 PRN If no BM in 2 days Sodium Chloride 0 ml 11/11/21 14:29 Sodium Chloride 0.9 % 10 Ml Syringe IV-PUSH 11/11/22 14:28 PRN PRN Flush Sodium Chloride 0 ml 11/11/21 22:00 11/17/21 06:13 Sodium Chloride 0.9 % 10 Ml Syringe IV-PUSH 11/11/22 21:59 10 ml QSHIFT KAYLIN Administration Venlafaxine HCl 75 mg 11/11/21 21:00 11/16/21 21:46 Venlafaxine Er 75 Mg Cap.Er.24h PO 11/11/22 20:59 75 mg QPM KAYLIN Administration Venlafaxine HCl 150 mg 11/12/21 09:00 11/17/21 08:06 Venlafaxine Er 150 Mg Cap.Er.24h PO 11/12/22 08:59 150 mg QAM KAYLIN Administration Vitamin D 125 mcg 11/12/21 09:00 11/17/21 08:05 Cholecalciferol 125 Mcg (5,000 Units) Capsule PO 11/12/22 08:59 125 mcg DAILY KAYLIN Administration Warfarin Sodium 1 each 11/11/21 15:33 Warfarin - Pharmacy Dosing MISCELLANE 11/11/22 15:32 ONCE PRN zz.Pharmacy Note Protocol Warfarin Sodium 2 mg 11/17/21 17:00 Warfarin 2 Mg Tablet PO 11/17/21 17:01 ONCE@1700 ONE Assessment/Plan <Fabian Lam DO, RES - Last Filed: 11/17/21 11:49> Assessment/Plan (1) Compression fracture: Status: Acute (2) Parkinsons disease: Code(s): G20 - Parkinson's disease Status: Acute (3) Impaired mobility and ADLs: Code(s): Z74.09 - Other reduced mobility; Z78.9 - Other specified health status Status: Acute (4) Diabetes: Code(s): E11.9 - Type 2 diabetes mellitus without complications Status: Acute (5) Hypertension: Code(s): I10 - Essential (primary) hypertension Status: Acute (6) Hyperlipidemia: Code(s): E78.5 - Hyperlipidemia, unspecified Status: Acute (7) GERD (gastroesophageal reflux disease): Code(s): K21.9 - Gastro-esophageal reflux disease without esophagitis Status: Acute (8) Back pain: Code(s): M54.9 - Dorsalgia, unspecified Status: Acute Plan 81-year-old female with history of Parkinson's disease admitted to the rehabilitation unit with functional decline secondary to Parkinson's exacerbation and L1 compression fracture. Patient seems to be tolerating therapy well with intermittent back pain. Leg swelling appears to have improved with increase in activity. Hospitalist to assist with management of comorbid medical conditions Pain control: Wean opioids as tolerated.? On scheduled Tylenol.? Topical modalities as needed.? Brace for comfort PRN. Bowel and bladder: Incontinent of bowel and bladder.? Monitor. Not new. Skin: No issues on rehab admission. Sleep: On low-dose mirtazapine. This was recently added by psychiatry. Patient does endorse some depressive symptoms, which she attributes to recent in the family DVT prophylaxis: Covered with Coumadin. Hx of DVT Functional status:Needs assistance with mobility and self-care. Discharge planning: Plan for discharge home within 1 week. <Alcides Moya MD - Last Filed: 11/18/21 12:40> Assessment/Plan (1) Compression fracture: (2) Parkinsons disease: (3) Impaired mobility and ADLs: (4) Diabetes: (5) Hypertension: (6) Hyperlipidemia: (7) GERD (gastroesophageal reflux disease): (8) Back pain: Plan: Patient was personally seen by me on the day of encounter, reviewed the history and performed day elements of exam and formulated the plan of care and confirmedthe resident physician note, as above I completed a substantive portion of this encounter, the medical decision makingportion of this note in its entirety, including Allied health note review, nursing note review, recruitment consultant note review, discussion with nursing and case management, and more than 50% of my time was spent on counseling and coordination of care, time spent 23 minutes Patient was personally seen by me, Dr. Moya, on the day of encounter, reviewed the history and the relevant portions of the chart, including current orders, allied health and recruitment consultant notes, labs/imaging and performed day elements of exam and I formulated the plan of care and facilitated the medical decision making and confirmed the nurse practitioner note, as above Reviewed at team meeting. Making good functional progress. Family would like her to remain admitted through next week. They will be present for family instruction session before discharge. Plan is for home. Labs for tomorrow. Documented By: Fabian Lam DO, RES 2 1049 Signed By: <Electronically signed by DO KARLA Lam> 11/17/21 1149 <Electronically signed by Alcides Moya MD> 11/18/21 1240 [facility] Work Phone: 1(152) 641-324209-03-2022 Progress note Author Alcides Moya [facility] November 14, 2021 8:45am Note Date/Time November 13, 2021 3:25pm [facility] [address] [place] [address] Physiatry(Rehab) Progress Note Signed Patient: Alton Barker MR#: [id number] : 1940 Acct:[id number] Age/Sex: 81 / F Adm Date: 2 Loc: Room: [address] [place] [address] Type: ADM IN Attending Dr: Alcides Moya MD Copies to: ~ Date of Service: 11/13/2021 Subjective Subjective Narrative: Ms. Barker is a 81 year old female With history of Parkinson's disease, followed at the [facility], admitted to the rehabilitation unit with multifactorialfunctional decline in the setting of Parkinson's exacerbation and compression fracture. She had had some generalized weakness for a few weeks prior to admission. This was in the setting of the loss of her longtime partner of hers. Psychiatry was consulted for worsening depression and mirtazapine was added. Imaging demonstrated L1 compression fracture and mild spinal canal stenosis. Her bowel / bladder incontinence was felt to be more likely related to her Parkinson's disease. Compression fracture managed conservatively. Noted to have E. coli urinary tract infection. Completing antibiotics. Interval history: INR therapeutic She is feeling little dizzy/lightheaded with therapy Her blood pressure was on the lower side She does say this occurs fairly frequently at home Endorses poor p.o. intake, but she is aware, will try to improve Chronic conditions are otherwise stable with current management.She is anticoagulated. Review of Systems Constitutional Constitutional: Reports system reviewed and no additional complaints, except as documented and Reports fatigue Eyes Eyes: Reports system reviewed and no additional complaints, except as documented ENT Ears, Nose, Mouth, and Throat: Reports system reviewed and no additional complaints, except as documented and Reports disequilibrium Cardiovascular Cardiovascular: Reports system reviewed and no additional complaints, except as documented Respiratory Respiratory: Reports system reviewed and no additional complaints, except as documented Gastrointestinal Gastrointestinal: Reports system reviewed and no additional complaints, except as documented and Reports change in bowel habits Genitourinary Genitourinary: Reports system reviewed and no additional complaints, except as documented and Reports urinary incontinence Musculoskeletal Musculoskeletal: Reports system reviewed and no additional complaints, except asdocumented, Reports abnormal gait and Reports back pain Integumentary/Breasts Skin/Breast: Reports system reviewed and no additional complaints, except as documented Neurologic Neurologic: Reports system reviewed and no additional complaints, except as documented, Reports abnormal gait, Reports disequilibrium, Reports localized weakness, Reports lack of coordination and Reports tremor(s) Psychiatric Psychiatric: Reports system reviewed and no additional complaints, except as documented Endocrine Endocrine: Reports system reviewed and no additional complaints, except as documented and Reports fatigue Exam Physical Exam Vital Signs: Temp Pulse Resp BP Pulse Ox O2 Del Method 97.6 F 84 18 95/60 L 97 Room Air 11/13/21 05:00 11/13/21 10:02 11/13/21 05:00 11/13/21 10:06 11/13/21 05:00 11/13/21 07:30 Narrative: General: cooperative, comfortable HENMT Head: normal to inspection Eyes General: appearance normal, both eyes and all related structures Neck Neck: normal visual inspection, no lymphadenopathy Resp Effort & Inspection: normal respiratory effort Auscultation: clear to auscultation bilaterally Cardio Rate: regular rate Rhythm: regular rhythm Heart Sounds: S1 normal, S2 normal GI Inspection: normal to inspection Auscultation: normal bowel sounds Neuro Cranial Nerves: CN's II-XI intact bilaterally Cognition: normal cognition Speech: speech abnormal, Some word finding difficulty and hypophonic Motor: strength 5/5 throughout, Bradykinetic Sensory Exam: no sensory deficits noted Plantar Reflexes: Downgoing Deep Tendon Reflexes DTR Comments: 1+ and symmetric Extrem Mild tremor Psych Mood: normal affect Affect: normal affect Endurance fair Objective Labs CBC & Chem 7: 11/12/21 06:27 11/12/21 06:27 Labs: Laboratory Results - last 24 hr 11/12/21 11/12/21 11/13/21 15:43 20:06 04:00 PT 29.5 H INR 2.6 POC Glucose 293 212 POC Glucose Comment 11/13/21 11/13/21 11/13/21 06:25 07:29 12:03 PT INR POC Glucose 116 122 145 POC Glucose Comment Glu2: cleaned meter Glu2: cleaned meter Medications and Allergies Allergies and Active Meds: Allergies bupropion [From Wellbutrin] Allergy (Verified 11/04/21 15:50) Hallucinating hydrocodone [From Vicodin] Allergy (Verified 11/04/21 15:50) Unknown Reaction latex Allergy (Verified 11/04/21 15:50) Rash Active Medications Generic Name Dose Route Start Last Admin Trade Name Moises PRN Reason Stop Dose Admin Acetaminophen 1,000 mg 11/11/21 22:00 11/13/21 13:20 Acetaminophen 500 Mg Tablet PO 11/11/22 21:59 1,000 mg TID KAYLIN Administration Al Hydrox/Mg Hydrox/Simethicone 30 ml 11/11/21 14:29 Mag Hydrox/Al Hydrox/Simeth 30 Ml Udc PO 11/11/22 14:28 Q4H PRN Indigestion Atorvastatin Calcium 40 mg 11/11/21 22:00 11/12/21 20:58 Atorvastatin 40 Mg Tablet PO 11/11/22 21:59 40 mg QHS KAYLIN Administration Bisacodyl 10 mg 11/11/21 14:29 Bisacodyl 10 Mg Supp.Rect MD 11/11/22 14:28 DAILY PRN Constipation Carbidopa/Levodopa 1.5 tab 11/11/21 22:00 11/13/21 13:19 Carbidopa/Levodopa 25-100 Mg 1 Tab Tablet PO 11/11/22 21:59 1.5 tab TID KAYLIN Administration Cefdinir 300 mg 11/11/21 21:00 11/13/21 08:19 Cefdinir 300 Mg Capsule PO 11/13/21 20:59 300 mg BID KAYLIN Administration Cyanocobalamin 1,000 mcg 11/13/21 09:00 11/13/21 08:19 Cyanocobalamin 1,000 Mcg Tablet PO 11/13/22 08:59 1,000 mcg DAILY KAYLIN Administration Docusate Sodium 100 mg 11/11/21 14:29 Docusate 100 Mg Capsule PO 11/11/22 14:28 BID PRN Constipation Docusate Sodium 283 mg 11/11/21 14:29 Docusate Enema 283 Mg/5 Ml Enema MD 11/11/22 14:28 DAILY PRN Constipation Lactulose 30 gm 11/11/21 14:29 Lactulose 20 Gm/30 Ml Udc PO 11/11/22 14:28 DAILY PRN Constipation Levothyroxine Sodium 75 mcg 11/12/21 06:30 11/13/21 05:58 Levothyroxine 75 Mcg Tablet PO 11/12/22 06:29 75 mcg DAILY@0630 KAYLIN Administration Lidocaine 1 patch 11/12/21 09:00 11/13/21 08:21 Lidocaine 4% Adh..Patch TOPICAL 11/12/22 08:59 1 patch QAM KAYLIN Administration Metformin HCl 1,000 mg 11/11/21 17:00 11/13/21 08:19 Metformin 500 Mg Tablet PO 11/11/22 16:59 1,000 mg BID.WITH.MEALS KAYLIN Administration Metoprolol Tartrate 75 mg 11/11/21 21:00 11/13/21 08:19 Metoprolol Tartrate 37.5 Mg Tablet PO 11/11/22 20:59 75 mg BID KAYLIN Administration Mirtazapine 7.5 mg 11/11/21 22:00 11/12/21 20:58 Mirtazapine 7.5 Mg Tablet PO 11/11/22 21:59 7.5 mg QHS KAYLIN Administration Omeprazole 20 mg 11/12/21 07:30 11/13/21 05:58 Omeprazole 20 Mg Capsule. PO 11/12/22 07:29 20 mg DAILY.AC.BKFAST KAYLIN Administration Oxycodone HCl 5 mg 11/11/21 14:33 11/13/21 05:58 Oxycodone Ir 5 Mg Tablet PO 5 mg Q6HR PRN Administration pain Polyethylene Glycol 17 gm 11/12/21 12:26 Polyethylene Glycol 3350 17 Gm Powd.Pack PO 11/11/22 20:59 BID PRN constipation Senna/Docusate Sodium 2 tab 11/11/21 21:00 11/12/21 08:43 Sennosides/Docusate 8.6-50mg 1 Tab Tablet PO 11/11/22 20:59 2 tab BID KAYLIN Administration Sennosides 2 tab 11/12/21 12:00 Sennosides 8.6 Mg Tablet PO 11/12/22 11:59 DAILY@12 PRN If no BM in 2 days Sodium Chloride 0 ml 11/11/21 14:29 Sodium Chloride 0.9 % 10 Ml Syringe IV-PUSH 11/11/22 14:28 PRN PRN Flush Sodium Chloride 0 ml 11/11/21 22:00 11/13/21 13:20 Sodium Chloride 0.9 % 10 Ml Syringe IV-PUSH 11/11/22 21:59 10 ml QSHIFT KAYLIN Administration Venlafaxine HCl 75 mg 11/11/21 21:00 11/12/21 20:58 Venlafaxine Er 75 Mg Cap.Er.24h PO 11/11/22 20:59 75 mg QPM KAYLIN Administration Venlafaxine HCl 150 mg 11/12/21 09:00 11/13/21 08:19 Venlafaxine Er 150 Mg Cap.Er.24h PO 11/12/22 08:59 150 mg QAM KAYLIN Administration Vitamin D 125 mcg 11/12/21 09:00 11/13/21 08:21 Cholecalciferol 125 Mcg (5,000 Units) Capsule PO 11/12/22 08:59 125 mcg DAILY KAYLIN Administration Warfarin Sodium 1 each 11/11/21 15:33 Warfarin - Pharmacy Dosing MISCELLANE 11/11/22 15:32 ONCE PRN zz.Pharmacy Note Protocol Warfarin Sodium 2 mg 11/13/21 17:00 Warfarin 2 Mg Tablet PO 11/13/21 17:01 ONCE ONE Assessment/Plan Assessment/Plan (1) Parkinsons disease: Code(s): G20 - Parkinson's disease Status: Acute (2) Impaired mobility and ADLs: Code(s): Z74.09 - Other reduced mobility; Z78.9 - Other specified health status Status: Acute (3) Diabetes: Code(s): E11.9 - Type 2 diabetes mellitus without complications Status: Acute (4) Hypertension: Code(s): I10 - Essential (primary) hypertension Status: Acute (5) Hyperlipidemia: Code(s): E78.5 - Hyperlipidemia, unspecified Status: Acute (6) GERD (gastroesophageal reflux disease): Code(s): K21.9 - Gastro-esophageal reflux disease without esophagitis Status: Acute (7) Hypothyroid: Code(s): E03.9 - Hypothyroidism, unspecified Status: Acute (8) Compression fracture: Status: Acute (9) Depression: Code(s): F32.A - Depression, unspecified Status: Acute (10) Chronic anticoagulation: Code(s): 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 A little orthostatic, encourage p.o. intake Continue current management INR therapeutic Hospitalist to assist with management of comorbid medical conditions Pain control:Wean opioids as tolerated. On scheduled Tylenol. Topical modalities as needed. Brace for comfort. Bowel and bladder: Incontinent of bowel and bladder. Monitor.Not new. Skin: No issues on rehab admission. Sleep:On low-dose mirtazapine.This was recently added by psychiatry. DVT prophylaxis:Covered with Coumadin. Functional status:Needs assistance with mobility and self-care. Discharge planning:Insurance denial overturned via [id number]. 2 weeks approved. Plan for discharge home November 25 Plan: I completed a substantive portion of this encounter, the medical decision makingportion of this note in its entirety, including Allied health note review, nursing note review, recruitment consultant note review, discussion with nursing and case management, and more than 50% of my time was spent on counseling and coordination of care, time spent 26minutes Patient was personally seen by me, Dr. Moya, on the day of encounter, reviewed the history and the relevant portions of the chart, including current orders, allied health and recruitment consultant notes, labs/imaging and performed day elements of exam and I formulated the plan of care and facilitated the medical decision making and confirmed the nurse practitioner note, as above Documented By: Alcides Moya MD 11/13/21 1525 Signed By: <Electronically signed by Alcides Moya MD> 11/14/[address] [facility] Work Phone: [phone] 163-802709-01-2022 Consult note Author Justice De Oliveira [facility] November 12, 2021 5:09pm Note Date/Time November 12, 2021 3:21pm [facility] [address] [place] [address] Hospitalist Consult Note Signed Patient: Alton Barker MR#: [id number] : 1940 Acct:[id number] Age/Sex: 81 / F Adm Date: 2 Loc: Room: [address] [place] [address] Type: ADM IN Attending Dr: Alcides Moya MD Copies to: MD Justice Pate, FIGUEROA Valentino-BC Honey RabagoDO~ HPI DATE OF CONSULTATION: 11/12/21 REQUESTING PROVIDER: Alcides Moya Consult Narrative Reason for Consult: Diabetes, hypertension HPI: 81-year-old female past medical history significant for hypothyroid, GERD, diabetes, chronic anticoagulation for history of DVT, hyperlipidemia, hypertension, Parkinson's disease. She presented to the emergency department November 04 with concerns of low back pain. Had experienced a fall October 20 and was seen in the emergency department at that time with no evidence of abnormality on imaging. Patient was discharged home and has had persistent decline and decreased appetite/weight, uncontrolled pain, depression, leg weakness, incontinence. Patient with underlying Parkinson's follows with [facility] neurology and movement disorder clinicians there. In the emergency department this visit, plan was made for admission for further evaluation. MRI of lumbar spine showed L1 compression deformity with corresponding marrow edema extending into the adjacent paraspinous musculature, L4-5 circumferential disc bulge with facet hypertrophy, mild spinal canal stenosis with moderate to severe left and mild right neuroforaminal narrowing with mass-effect on exiting left L4 nerve roots. She was evaluated by neurosurgery with conservative management recommended. She was also found with E. coli UTI initiated on ceftriaxone changed to cefdinir for total 7-day course planned. She was also seen in hospital by psychiatry for depression and initiated on Remeron continuation of her Effexor. She was seen by therapy services with recommendations for further rehab, subsequently discharged to the inpatient rehab unit November 11. Patient seen and examined. She is up in the chair, fatigued after working with therapy today and reporting pain in her back currently. Denies chest pain or palpitations. No cough, dyspnea, or pain with inspiration. No abdominal pain or indigestion, constipation or diarrhea, nausea or vomiting. No dysuria or retention. No headache or dizziness. No fevers or chills. Review of Systems Review of Systems All other systems reviewed & are negative unless noted below or in HPI [facility] Attestation Statement: The following information was validated with the patient. Vaccinated for COVID-19?: Yes Medical History (Updated 11/12/21 @ 15:42 by Tonya Suh, ANP-BC) Anxiety B12 deficiency Chronic anticoagulation Compression fracture Depression Diabetes DVT (deep venous thrombosis) Dysphagia Fibromyalgia GERD (gastroesophageal reflux disease) Hyperlipidemia Hypertension Hypothyroid Parkinsons disease Vitamin D deficiency Surgical History History of appendectomy History of cholecystectomy Family History (Updated 11/11/21 @ 14:48 by Lazara Nash LPN) Other No significant family history Social History Smoking Status: Never smoker Substance Use Type: None Substance Abuse Comment: occasional alcohol Social History Comments: Lives with son and daughter in law. Meds Medications and Allergies Allergies bupropion [From Wellbutrin] Allergy (Verified 11/04/21 15:50) Hallucinating hydrocodone [From Vicodin] Allergy (Verified 11/04/21 15:50) Unknown Reaction latex Allergy (Verified 11/04/21 15:50) Rash Home Medications levothyroxine 75 mcg tablet 75 mcg PO DAILY@0630 01/18/17 [History Confirmed 11/11/21] metformin 500 mg tablet 1,000 mg PO BID.WITH.MEALS 01/18/17 [History Confirmed 11/11/21] metoprolol tartrate 50 mg tablet 75 mg PO BID 01/18/17 [History Confirmed 11/11/21] omeprazole 40 mg capsule,delayed release 20 mg PO QAM 01/18/17 [History Confirmed 11/11/21] warfarin 2 mg tablet 2 mg PO DIRECTED 01/18/17 [History Confirmed 11/11/21] atorvastatin 40 mg tablet 40 mg PO QHS 11/04/21 [History Confirmed 11/11/21] carbidopa 25 mg-levodopa 100 mg tablet 1.5 tab PO TID 11/04/21 [History Confirmed 11/11/21] cholecalciferol (vitamin D3) 125 mcg (5,000 unit) tablet (Vitamin D3) 125 mcg POQAM 11/04/21 [History Confirmed 11/11/21] cyanocobalamin (vitamin B-12) 2,000 mcg tablet,extended release (Vitamin B-12 ER) 2,000 mcg PO DAILY 11/04/21 [History Confirmed 11/11/21] vit C 250 mg-vit E 90 mg-zinc 40 mg-copper 1 pa-mmbjgb-betvsg capsule (PreserVision AREDS-2) 1 tab PO BID 11/04/21 [History Confirmed 11/11/21] venlafaxine 150 mg capsule,extended release 24 hr 150 mg PO QAM 11/05/21 [History Confirmed 11/11/21] venlafaxine 75 mg tablet,extended release 24 hr 75 mg PO QPM 11/05/21 [History Confirmed 11/11/21] Warfarin - Pharmacy Dosing [Coumadin Pharmacy Dosing] 1 ea miscellaneous ONCE PRN ##0 11/10/21 [Rx Confirmed 11/11/21] mirtazapine 7.5 mg tablet 7.5 mg PO QHS #0 tabs 11/10/21 [Rx Confirmed 11/11/21] oxycodone 5 mg tablet 5 mg PO Q6HR PRN pain #0 tabs 11/10/21 [Rx Confirmed 11/11/21] polyethylene glycol 3350 17 gram oral powder packet (Miralax) 17 g PO BID #0 ea 11/10/21 [Rx Confirmed 11/11/21] sennosides 8.6 mg-docusate sodium 50 mg tablet (Stool Softener-Stimulant Laxative) 2 tab PO BID #0 tabs 11/10/21 [Rx Confirmed 11/11/21] acetaminophen 500 mg tablet 1,000 mg PO TID 11/11/21 [History Confirmed 11/11/21] cefdinir 300 mg capsule 300 mg PO BID 2 days #4 caps 11/11/21 [Rx Confirmed 11/11/21] lidocaine 4 % topical patch (Lidocaine Pain Relief) 1 patch topical QAM 11/11/21[History Confirmed 11/11/21] warfarin 1 mg tablet (Jantoven) 1 mg PO ONCE #0 tabs 11/11/21 [Rx] Active Medications: Active Medications Generic Name Dose Route Start Last Admin Trade Name Moises PRN Reason Stop Dose Admin Acetaminophen 1,000 mg 11/11/21 22:00 11/12/21 14:39 Acetaminophen 500 Mg Tablet PO 11/11/22 21:59 1,000 mg TID KAYLIN Administration Al Hydrox/Mg Hydrox/Simethicone 30 ml 11/11/21 14:29 Mag Hydrox/Al Hydrox/Simeth 30 Ml Udc PO 11/11/22 14:28 Q4H PRN Indigestion Atorvastatin Calcium 40 mg 11/11/21 22:00 11/11/21 21:09 Atorvastatin 40 Mg Tablet PO 11/11/22 21:59 40 mg QHS KAYLIN Administration Bisacodyl 10 mg 11/11/21 14:29 Bisacodyl 10 Mg Supp.Rect MD 11/11/22 14:28 DAILY PRN Constipation Carbidopa/Levodopa 1.5 tab 11/11/21 22:00 11/12/21 14:39 Carbidopa/Levodopa 25-100 Mg 1 Tab Tablet PO 11/11/22 21:59 1.5 tab TID KAYLIN Administration Cefdinir 300 mg 11/11/21 21:00 11/12/21 08:43 Cefdinir 300 Mg Capsule PO 11/13/21 20:59 300 mg BID KAYLIN Administration Cyanocobalamin 1,000 mcg 11/13/21 09:00 Cyanocobalamin 1,000 Mcg Tablet PO 11/13/22 08:59 DAILY KAYLIN Docusate Sodium 100 mg 11/11/21 14:29 Docusate 100 Mg Capsule PO 11/11/22 14:28 BID PRN Constipation Docusate Sodium 283 mg 11/11/21 14:29 Docusate Enema 283 Mg/5 Ml Enema MD 11/11/22 14:28 DAILY PRN Constipation Lactulose 30 gm 11/11/21 14:29 Lactulose 20 Gm/30 Ml Udc PO 11/11/22 14:28 DAILY PRN Constipation Levothyroxine Sodium 75 mcg 11/12/21 06:30 11/12/21 06:25 Levothyroxine 75 Mcg Tablet PO 11/12/22 06:29 Not Given DAILY@0630 [facility] Lidocaine 1 patch 11/12/21 09:00 11/12/21 08:45 Lidocaine 4% Adh..Patch TOPICAL 11/12/22 08:59 1 patch QAM KAYLIN Administration Metformin HCl 1,000 mg 11/11/21 17:00 11/12/21 08:43 Metformin 500 Mg Tablet PO 11/11/22 16:59 1,000 mg BID.WITH.MEALS KAYLIN Administration Metoprolol Tartrate 75 mg 11/11/21 21:00 11/12/21 08:43 Metoprolol Tartrate 37.5 Mg Tablet PO 11/11/22 20:59 75 mg BID KAYLIN Administration Mirtazapine 7.5 mg 11/11/21 22:00 11/11/21 21:09 Mirtazapine 7.5 Mg Tablet PO 11/11/22 21:59 7.5 mg QHS KAYLIN Administration Omeprazole 20 mg 11/12/21 07:30 11/12/21 08:44 Omeprazole 20 Mg Capsule. PO 11/12/22 07:29 20 mg DAILY.AC.BKFAST KAYLIN Administration Oxycodone HCl 5 mg 11/11/21 14:33 11/11/21 21:09 Oxycodone Ir 5 Mg Tablet PO 5 mg Q6HR PRN Administration pain Polyethylene Glycol 17 gm 11/12/21 12:26 Polyethylene Glycol 3350 17 Gm Powd.Pack PO 11/11/22 20:59 BID PRN constipation Senna/Docusate Sodium 2 tab 11/11/21 21:00 11/12/21 08:43 Sennosides/Docusate 8.6-50mg 1 Tab Tablet PO 11/11/22 20:59 2 tab BID KAYLIN Administration Sennosides 2 tab 11/12/21 12:00 Sennosides 8.6 Mg Tablet PO 11/12/22 11:59 DAILY@12 PRN If no BM in 2 days Sodium Chloride 0 ml 11/11/21 14:29 Sodium Chloride 0.9 % 10 Ml Syringe IV-PUSH 11/11/22 14:28 PRN PRN Flush Sodium Chloride 0 ml 11/11/21 22:00 11/12/21 14:39 Sodium Chloride 0.9 % 10 Ml Syringe IV-PUSH 11/11/22 21:59 10 ml QSHIFT KAYLIN Administration Venlafaxine HCl 75 mg 11/11/21 21:00 11/11/21 21:09 Venlafaxine Er 75 Mg Cap.Er.24h PO 11/11/22 20:59 75 mg QPM KAYLIN Administration Venlafaxine HCl 150 mg 11/12/21 09:00 11/12/21 08:44 Venlafaxine Er 150 Mg Cap.Er.24h PO 11/12/22 08:59 150 mg QAM KAYLIN Administration Vitamin D 125 mcg 11/12/21 09:00 11/12/21 08:44 Cholecalciferol 125 Mcg (5,000 Units) Capsule PO 11/12/22 08:59 125 mcg DAILY KAYLIN Administration Warfarin Sodium 1 each 11/11/21 15:33 Warfarin - Pharmacy Dosing MISCELLANE 11/11/22 15:32 ONCE PRN zz.Pharmacy Note Protocol Exam Physical Exam Vital Signs: Temp Pulse Resp BP Pulse Ox O2 Del Method 97.8 F 76 17 148/77 H 97 Room Air 11/12/21 05:00 11/12/21 05:00 11/12/21 05:00 11/12/21 05:00 11/12/21 05:00 11/12/21 07:30 Narrative: CONST- alert, in chair, no acute distress, elderly female, soft-spoken HEAD- normocephalic and atraumatic EENT- sclera nonicteric and conjunctiva nonerythemic, moist oral mucosa, pharynx clear NECK- supple, no cervical lymphadenopathy CARDIAC- RRR no abnormal heart tones PULM- diminished without wheeze or rhonchi, RA, no accessory muscle use or cough noted ABD- S/NT, NABS, round EXTREM- no edema BLE, calves nontender SKIN- W/D, fair turgor MS- MAEx4 spontaneously with equal strength but generalized weakness NEURO- A&Ox3, speech clear and tongue midline, equal facial symmetry, tremors bilateral upper extremities fine PSYCH-mood and behavior appropriate Results Lab Results Labs: Laboratory Results - last 72 hr 11/12/21 11:44: POC Glucose 204, POC Glucose Comment Glu2: cleaned meter 11/12/21 08:23: POC Glucose 188, POC Glucose Comment Glu2: cleaned meter 11/12/21 06:27: PT 34.1 H, INR 3.0 11/12/21 06:27: PHA Creatinine Clear 64.44, Sodium 139, Potassium 3.9, Chloride 100, Carbon Dioxide 31.0 H, Anion Gap 11.9, BUN 8 L, Creatinine 0.55, Est GFR ( Amer) > 60, Est GFR (Non-Af Amer) > 60, Glucose 130 H, Calcium 9.2, Total Bilirubin 0.8, AST 22, ALT 13, Alkaline Phosphatase 84, Total Protein 6.8, Albumin 3.1 L, Globulin 3.7, Albumin/Globulin Ratio 0.8, Prealbumin 21.7 11/12/21 06:27: Corrected WBC 5.0, Uncorrected WBC Count 5.0, RBC 4.29, Hgb 12.5, Hct 38.9, MCV 90.6, MCH 29.2, MCHC 32.2, RDW 17.3 H, Plt Count 241, MPV 8.6, Neut % (Auto) 45.9, Lymph % (Auto) 39.7, Metcalfe % (Auto) 10.1, Eos % (Auto) 3.8, Baso % (Auto) 0.5, Neut # (Auto) 2.3, Lymph # (Auto) 2.0, Metcalfe # (Auto) 0.5, Eos # (Auto) 0.2, Baso # (Auto) 0.0, Nucleated RBC % (auto) 0.0 11/11/21 20:45: POC Glucose 168 A&P - Hospitalist Assessment/Plan (1) Compression fracture: (2) Parkinsons disease: (3) Urinary tract infection: (4) Diabetes: (5) Hypertension: Plan L1 compression fracture Parkinson's disease -Further POC per PMR team for rehabilitative therapy, pain control bowel regimen, DVT PPx -Continue Sinemet E. coli UTI -Completing course of antibiotics initiated in hospital 11/12 B12 deficiency -Supplement Chronic conditions 1. HLD, HTN?atorvastatin, metoprolol 2. Diabetes?metformin 3. Depression?mirtazapine, venlafaxine 4. Vitamin D deficiency?supplement 5. Chronic anticoagulation with history DVT?pharmacy to manage warfarin 6. Hypothyroid?levothyroxine Documented By: WILFRID Samuels 2 1520 Signed By: <Electronically signed by WILFRID Suh> 11/12/21 1543 <Electronically signed by Justice De Oliveira DO> 11/12/21 1709 [facility] Work Phone: 1(950) 283-474208-31-2022 History and physical note Author Alcides Moya [facility] November 11, 2021 6:55pm Note Date/Time November 11, 2021 1: 26pm [facility] [address] [place] [address] Physiatry (Rehab) H&P Signed Patient: Alton Barker MR#: [id number] : 1940 Acct:[id number] Age/Sex: 81 / F Adm Date: 2 Loc: Room: [address] [place] [address] Type: ADM IN Attending Dr: Alcides Moya MD Copies to: MD Honey Pate DO~ Date of Service: 11/11/2021 HPI The patient was seen and examined on: 11/11/21 Etiologic Diagnosis/Impairment Group: 08.9 History of Present Illness: Ms. Barker is a 81 year old female With history of Parkinson's disease, followed at the [facility], admitted to the rehabilitation unit with multifactorialfunctional decline in the setting of Parkinson's exacerbation and compression fracture. She had had some generalized weakness for a few weeks prior to admission. This was in the setting of the loss of her longtime partner of hers. Psychiatry was consulted for worsening depression and mirtazapine was added. Imaging demonstrated L1 compression fracture and mild spinal canal stenosis. Her bowel / bladder incontinence was felt to be more likely related to her Parkinson's disease. Compression fracture managed conservatively. Noted to have E. coli urinary tract infection. Completing antibiotics. Today she states she is feeling well. She does not feel like she is at her premorbid functional baseline. She is thankful for rehab admission. Lives at home with her son and [id number]. Chronic conditions are otherwise stable with current management.She is anticoagulated. PMFSH Vaccinated for COVID-19?: Unknown Medical History Anxiety Chronic anticoagulation Compression fracture Depression Diabetes DVT (deep venous thrombosis) Dysphagia Fibromyalgia GERD (gastroesophageal reflux disease) Hyperlipidemia Hypertension Hypothyroid Parkinsons disease Surgical History History of appendectomy History of cholecystectomy Family History (Updated 11/11/21 @ 14:48 by Lazara Nash LPN) Other No significant family history Social History Smoking Status: Former smoker Substance Use Type: None Substance Abuse Comment: occasional alcohol Review of Systems Constitutional Constitutional: Reports system reviewed and no additional complaints, except as documented and Reports fatigue Eyes Eyes: Reports system reviewed and no additional complaints, except as documented ENT Ears, Nose, Mouth, and Throat: Reports system reviewed and no additional complaints, except as documented Cardiovascular Cardiovascular: Reports system reviewed and no additional complaints, except as documented Respiratory Respiratory: Reports system reviewed and no additional complaints, except as documented Gastrointestinal Gastrointestinal: Reports system reviewed and no additional complaints, except as documented and Reports change in bowel habits Genitourinary Genitourinary: Reports system reviewed and no additional complaints, except as documented and Reports urinary incontinence Musculoskeletal Musculoskeletal: Reports system reviewed and no additional complaints, except asdocumented, Reports abnormal gait and Reports back pain Integumentary/Breasts Skin/Breast: Reports system reviewed and no additional complaints, except as documented Neurologic Neurologic: Reports system reviewed and no additional complaints, except as documented, Reports abnormal gait, Reports disequilibrium, Reports localized weakness, Reports lack of coordination and Reports tremor(s) Psychiatric Psychiatric: Reports system reviewed and no additional complaints, except as documented Endocrine Endocrine: Reports system reviewed and no additional complaints, except as documented Meds Medications and Allergies Allergies bupropion [From Wellbutrin] Allergy (Verified 11/04/21 15:50) Hallucinating hydrocodone [From Vicodin] Allergy (Verified 11/04/21 15:50) Unknown Reaction latex Allergy (Verified 11/04/21 15:50) Rash Home and Active Meds: Home Medications levothyroxine 75 mcg tablet 75 mcg PO DAILY 01/18/17 [History Confirmed 11/04/21] metformin 500 mg tablet 1,000 mg PO BID 01/18/17 [History Confirmed 11/04/21] metoprolol tartrate 50 mg tablet 75 mg PO BID 01/18/17 [History Confirmed 11/04/21] omeprazole 40 mg capsule,delayed release 20 mg PO DAILY PRN Acid Reflux 01/18/17[History Confirmed 11/04/21] warfarin 2 mg tablet 2 mg PO DIRECTED 01/18/17 [History Confirmed 11/04/21] atorvastatin 40 mg tablet 40 mg PO QHS 11/04/21 [History Confirmed 11/04/21] carbidopa 25 mg-levodopa 100 mg tablet 1.5 tab PO TID 11/04/21 [History Confirmed 11/04/21] cholecalciferol (vitamin D3) 125 mcg (5,000 unit) tablet (Vitamin D3) 125 mcg PODAILY 11/04/21 [History Confirmed 11/04/21] cyanocobalamin (vitamin B-12) 2,000 mcg tablet,extended release (Vitamin B-12 ER) 2,000 mcg PO DAILY 11/04/21 [History Confirmed 11/04/21] vit C 250 mg-vit E 90 mg-zinc 40 mg-copper 1 by-sjkgfx-dhxgvh capsule (PreserVision AREDS-2) 1 tab PO BID 11/04/21 [History Confirmed 11/04/21] venlafaxine 150 mg capsule,extended release 24 hr 150 mg PO DAILY 11/05/21 [History Confirmed 11/05/21] venlafaxine 75 mg tablet,extended release 24 hr 75 mg PO QPM 11/05/21 [History Confirmed 11/05/21] Warfarin - Pharmacy Dosing [Coumadin Pharmacy Dosing] 1 ea miscellaneous ONCE PRN ##0 11/10/21 [Rx] acetaminophen 500 mg tablet 1,000 mg PO TID #0 tabs 11/10/21 [Rx] lidocaine 4 % topical patch (Lidocaine Pain Relief) 1 patch topical DAILY #0 ea 11/10/21 [Rx] mirtazapine 7.5 mg tablet 7.5 mg PO QHS #0 tabs 11/10/21 [Rx] oxycodone 5 mg tablet 5 mg PO Q6HR PRN pain #0 tabs 11/10/21 [Rx] polyethylene glycol 3350 17 gram oral powder packet (Miralax) 17 g PO BID #0 ea 11/10/21 [Rx] sennosides 8.6 mg-docusate sodium 50 mg tablet (Stool Softener-Stimulant Laxative) 2 tab PO BID #0 tabs 11/10/21 [Rx] cefdinir 300 mg capsule 300 mg PO BID 2 days #4 caps 11/11/21 [Rx] warfarin 1 mg tablet (Jantoven) 1 mg PO ONCE #0 tabs 11/11/21 [Rx] Exam Physical Exam Narrative: General: cooperative, comfortable HENMT Head: normal to inspection Eyes General: appearance normal, both eyes and all related structures Neck Neck: normal visual inspection, no lymphadenopathy Resp Effort & Inspection: normal respiratory effort Auscultation: clear to auscultation bilaterally Cardio Rate: regular rate Rhythm: regular rhythm Heart Sounds: S1 normal, S2 normal GI Inspection: normal to inspection Auscultation: normal bowel sounds Neuro Cranial Nerves: CN's II-XI intact bilaterally Cognition: normal cognition Speech: speech abnormal, Some word finding difficulty and hypophonic Motor: strength 5/5 throughout, Bradykinetic Sensory Exam: no sensory deficits noted Plantar Reflexes: Downgoing Deep Tendon Reflexes DTR Comments: 1+ and symmetric Extrem Mild tremor Psych Mood: normal affect Affect: normal affect Endurance fair Results Additional Results Results Comment: I reviewed clinical lab tests, radiology reports and obtained and summated medical records and have ordered follow up lab tests and imaging studies as needed for rehabilitation care. Individualized Plan of Care Individualized Plan of Care Plan of Care: Individualized Overall Plan of Care: Admit Date/Time: November 10, 2021 Expected LOS: 14 days Expected Discharge Destination: Home Rehabilitation [facility]: 08.9 Primary Diagnosis: L1 compression fracture h/o PD Patient?s/Family?s anticipated outcomes/personal goals: To have patient become more independent and to return home. Medical/ Functional Prognosis: Good Anticipated Functional Outcomes/Goals and Interventions: -Therapy Functional Outcome/Goal: Mobility/Locomotion: Patient likely to be modified independent with ambulation with assistive device. Anticipated interventions: Physician management, PT, Nutrition, Rehab Nursing - Therapy Functional Outcome/Goal: Self Care: Patient likely to be functionally modified independent for activities of daily living using assistive / adaptive equipment as needed. Anticipated interventions: Physician management, PT, OT, Nutrition, Rehab Nursing - Therapy Functional Outcome/Goal: Bladder/Bowel Management: Patient likely to be modified independent with bladder care and independent with bowel care. Anticipated interventions: Physician management, PT, OT, Nutrition, Rehab Nursing -Therapy Functional Outcome/Goal: Communication/Cognition: Patient will be able to communicate fully and be safe cognitively. Anticipated interventions: Physician management, PT, OT, Nutrition, Rehab Nursing -Therapy Functional Outcome/Goal: Patient will have adequate pain control less than 4/10 and understand how to take pain medications to achieve pain control. Anticipated interventions: Physician management, PT, OT, Nutrition, Rehab Nursing -Therapy Functional Outcome/Goal: Patient will improve endurance to be able to tolerate all daily self care activities and avocational activities. Anticipated interventions: Physician management, PT, OT, Nutrition, Rehab Nursing -Therapy Functional Outcome/Goal: Patient will understand and assimilate / integrate education regarding management of their medical conditions to maintain health and wellbeing. Anticipated interventions: Physician management, PT, OT, Nutrition, Rehab Nursing Required Therapy PT: 1.5 hour per day at least 5 days per week with additional therapy on as needed basis. Comments: PT to improve pt's strength, endurance, bed mobility, transfers (sit-stand), standing balance, gait quality on level surfaces and stairs, coordination and functional ADL skills. Will also work to improve pt's safety awareness during transfers and ambulation. OT: 1.5 hour per day at least 5 days per week with additional therapy on as needed basis. Comments: OT for basic ADL re-training (bathing, dressing, toileting, continence, grooming, feeding, transferring), to increase activity tolerance and functional mobility and to evaluate for adaptive and assistive devices. Will work to improve pt's endurance and educate pt on fall prevention and energy conservation techniques-pacing strategies and proper breathing techniques during functional tasks. Other: Nutrition, Rehab nursing, Wound, P&O RATIONALE FOR IRF ADMISSION: Patient has both medical and functional complexities that require 24 hour daily monitoring and intervention from [employer] as well as other consulting physicians including internal medicine as well as 24 hour daily help desk support specialist nursing - for medical safe / optimal management. Patient requires interdisciplinary therapy team rehabilitation care including OT, PT, SW, Psychology, Rehab Nursing, requires and can tolerate at least 3 hours of daily OT and PT therapy at least 5 days weekly. The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 meal as she is getting ready to take abite. She had experienced this in the past as well when she would fall asleep on the toilet. The following are the current problems noted and addressed during this visit: Parkinson's disease (hcc) Depression with anxiety Recurrent episodes of unresponsiveness (primary encounter diagnosis) Fatigue, unspecified type Excessive daytime sleepiness Plan 10/01/2021 Visit: Parkinson's Disease: Take your medication consistently on time Physical therapy when you are ready The recommendation is dawn to drive at this time Depression and anxiety: Consult the psychologist as scheduled f the change in medication does not help, please let the prescriber know Excessive daytime sleepiness/Fatigue: I still recommend a sleep study for your severe excessive daytime sleepiness Updated Parkinson's Medication Schedule: 7am 12pm 5pm Sinemet 25/100 1.5 1.5 1.5 Effexor Level of service : 87592 (40-54 min). Time spent 49 (12:14pm-1:03pm) min on the day of service, which included preparing to see the patient, [id number] patient care, completing clinical documentation, obtaining and/or reviewing separately obtained history, performing a medically appropriate examination, counseling and educating the patient/family/caregiver and ordering medications, tests, or procedures. Gloria Perez APRN.[email or web address] documented in this encounter[facility] Evaluation note* Encounter Date Diagnosis Assessment Notes Treatment Notes Treatment Clinical Notes Sep, Medication monitoring encounter (ICD-10 - Z51.81) Referring Provider: Honey Rabago Diagnosis: DVT INR Goal: 2-3 INR: 3.3 Tablet Size: 2mg Tuesday: 2mg Tuesday: 2mg Tuesday: 2mg Tuesday: 2mg : 2mg Tuesday: 2mg Tuesday: 2mg Total Weekly Dose: 14mg Do not take warfarin today, 09/29 and then continue current plan. Son and daughter in law have taken over medications and have been giving patient 3mg daily. Patient will continue 2mg daily as indicated above. See calendar. Follow up in 3 weeks. Seen by Juliana Ozuna RN [facility] Other 06-28-2022 NoteHISTORY: Bone density screening. COMPARISON: None available. PROCEDURE: Imaging of the lumbar spine and bilateral hips was obtained for bone density evaluation. FINDINGS: REGION BMD (g/cm??) YOUNG ADULT T-SCORE AGE-MATCHED Z-SCORE LEFT NECK 0.778 -0.6 1.7 RIGHT NECK 0.738 -1.0 1.3 LUMBAR (L1-L4) 1.049 0.0 2.7 The mean BMD and corresponding T-score listed above indicates: Normal Bone Mass and places the patient at no significant risk for fracture. This information can serve as a baseline with which to compare future studies. Recommend follow-up exam in 2 years, sooner as clinically necessary. Comment: The T-score is the primary focus of the interpretation of a patient???s bone mineral density measurement. The T-score is the number of standard deviations and individual is above or below the mean value for a young female having normal bone mass. The WHO defines osteoporosis based on the T-score value: +1.0 to -0.9 : Normal bone mass -1.0 to -2.5 : Osteopenia and thus may be at future risk of fracture. -2.6 to -5.0 : Osteoporosis and at significantly increased risk of fracture. IMPRESSION: NORMAL BONE MINERAL DENSITY. Report reported and signed by Delgado Moya on 09/08/2021 1400[facility]15[facility] Evaluation note* Encounter Date Diagnosis Assessment Notes Treatment Notes Treatment Clinical Notes Aug, Medication monitoring encounter (ICD-10 - Z51.81) Referring Provider: Honey Rabago Diagnosis: DVT INR Goal: 2-3 INR: 2.3 Tablet Size: 2mg Tuesday: 2mg Tuesday: 2mg Tuesday: 2mg Tuesday: 2mg : 2mg Tuesday: 2mg Tuesday: 2mg Total Weekly Dose: 14mg Continue current plan. Follow up in 4 weeks. Patient still in process of moving in with son since of significant other. Seen by Juliana Ozuna RN [facility] Other 05-25-2022 Evaluation note* Encounter Date Diagnosis Assessment Notes Treatment Notes Treatment Clinical Notes July, Medication monitoring encounter (ICD-10 - Z51.81) Referring Provider: Honey Rabago Diagnosis: DVT INR Goal: 2-3 INR: 2.3 Tablet Size: 2mg Tuesday: 2mg Tuesday: 2mg Tuesday: 2mg Tuesday: 2mg : 2mg Tuesday: 2mg Tuesday: 2mg Total Weekly Dose: 14mg Continue current plan. Follow up in 3 weeks. Patient still in process of moving in with son since of significant other. Seen by Yeni Shaw LPN July, Other - INSTRUCTIONS: Please take as instructed above. Notify [place] for [facility], Anticoagulation Clinic [phone] option 5 for the following: -Call immediately if you have a change in any medications, dose change, discontinuation, starting, over the counter, including Multivitamins or change of brands. - Call immediately if you have signs of bleeding or bruising for unknown reason. - Call immediately if you miss one or more doses of warfarin. - Call immediately if you have more than one episode of diarrhea or illness that is preventing you from taking your warfarin or change in diet. - Call immediately if you begin or stop drinking Boost, Ensure or any other meal supplement. - Call immediately if any physician or provider tells you to stop taking your warfarin for an upcoming procedure. - Call immediately if any pharmacy, physician or any other person tells you to adjust your warfarin. [facility] Other 05-09-2022 Evaluation note* Encounter Date Diagnosis Assessment Notes Treatment Notes Treatment Clinical Notes July, Medication monitoring encounter (ICD-10 - Z51.81) Referring Provider: Honey Rabago Diagnosis: DVT INR Goal: 2-3 INR: 2.1 Tablet Size: 2mg Tuesday: 2mg Tuesday: 2mg Tuesday: 2mg Tuesday: 2mg : 2mg Tuesday: 2mg Tuesday: 2mg Total Weekly Dose: 14mg Continue current plan. Follow up in 2 weeks. Patient states appetite has been poor. Patient still in process of moving in with son since of significant other. Seen by Justin Nicolas PharmD [email or web address] Other 03-30-2022 Evaluation note* Encounter Date Diagnosis Assessment Notes Treatment Notes Treatment Clinical Notes May, Medication monitoring encounter (ICD-10 - Z51.81) Referring Provider: Honey Rabago Diagnosis: DVT INR Goal: 2-3 INR: 5.2 Tablet Size: 2mg Tuesday: 2mg Tuesday: 2mg Tuesday: 2mg Tuesday: 3mg : 2mg Tuesday: 2mg Tuesday: 2mg Total Weekly Dose: 15mg Hold for 2 days 06/11/21 and 06/12/21 (patient took warfarin today 06/10/21), then begin new plan, a 16% decrease. Follow up in 2 weeks. Patient states that she has been under a lot of stress. Significant other last week and she has 30 days to move, states will be moving with her son and his family. Calendar provided. Seen by Anu Alva RPh/Anuradha Case LPN [email or web address] Other 03-15-2022 Evaluation note* Encounter Date Diagnosis Assessment Notes Treatment Notes Treatment Clinical Notes May, Medication monitoring encounter (ICD-10 - Z51.81) Referring Provider: Honey Rabago Diagnosis: DVT INR Goal: 2-3 INR: 3.9 Tablet Size: 2mg Tuesday: 2mg Tuesday: 3mg Tuesday: 2mg Tuesday: 3mg : 2mg Tuesday: 3mg Tuesday: 3mg Total Weekly Dose: 18mg Hold today (05/26), then begin new plan (5% decrease). Follow up in 2 weeks. Patient misunderstood instructions from last visit and did not decrease her dose. We went over the new plan thoroughly and she voiced understanding. Seen by Anu Alva [facility] Other 01-12-2022 Evaluation note* Encounter Date Diagnosis Assessment Notes Treatment Notes Treatment Clinical Notes Mar, Medication monitoring encounter (ICD-10 - Z51.81) Referring Provider: Honey Rabago Diagnosis: DVT INR Goal: 2-3 INR: 3.2 Tablet Size: 2mg Tuesday: 2mg Tuesday: 3mg Tuesday: 3mg Tuesday: 3mg : 2mg Tuesday: 3mg Tuesday: 3mg Total Weekly Dose: 19mg Reduce to 2mg today, then continue current plan. Follow-up in 3 weeks. Seen by Justin Nicolas PharmD [facility] Other 12-15-2021 Evaluation note* Encounter Date Diagnosis Assessment Notes Treatment Notes Treatment Clinical Notes Feb, Medication monitoring encounter (ICD-10 - Z51.81) Referring Provider: Honey Rabago Diagnosis: DVT INR Goal: 2-3 INR: 1.9 Tablet Size: 2mg Tuesday: 2mg Tuesday: 3mg Tuesday: 3mg Tuesday: 3mg : 2mg Tuesday: 3mg Tuesday: 3mg Total Weekly Dose: 19mg Continue current plan. Follow-up in 4 weeks. Seen by Juliana Ozuna RN [facility] Other 11-17-2021 Evaluation note* Encounter Date Diagnosis Assessment Notes Treatment Notes Treatment Clinical Notes Jan, Medication monitoring encounter (ICD-10 - Z51.81) Referring Provider: Honey Rabago Diagnosis: DVT INR Goal: 2-3 INR: 2.2 Tablet Size: 2mg Tuesday: 2mg Tuesday: 3mg Tuesday: 3mg Tuesday: 3mg : 2mg Tuesday: 3mg Tuesday: 3mg Total Weekly Dose: 19mg Continue current plan. Follow-up in 4 weeks. Seen by Juliana Ozuna RN [facility] Other 09-29-2021 Evaluation note* Encounter Date Diagnosis Assessment Notes Treatment Notes Treatment Clinical Notes Nov, Medication monitoring encounter (ICD-10 - Z51.81) Referring Provider: Honey Rabago Diagnosis: DVT INR Goal: 2-3 INR: 2.4 Tablet Size: 2mg Tuesday: 2mg Tuesday: 3mg Tuesday: 3mg Tuesday: 3mg : 2mg Tuesday: 3mg Tuesday: 3mg Total Weekly Dose: 19mg Continue current plan. Follow-up in 4 weeks. Seen by Justin Nicolas PharmD [facility] Other Consult note Author Jairo Benson [facility] November 05, 2021 3:10pm Note Date/Time November 05, 2021 3: 10pm [facility] [address] [place] [address] Psychiatry Consult Note Signed Patient: Alton Barker MR#: [id number] : 1940 Acct:[id number] Age/Sex: 81 / F Adm Date: 2 Loc: Room: [address] [place] [address] Type : ADM INOo Attending Dr: Enrrique Mota MD Copies to: MD Enrrique Ny MD Robert J Vaschak, DO~ HPI Consult Date: 11/05/21 Requesting Physician: Enrrique Mota MD Primary Care Provider: Honey Rabago DO Consult Narrative HPI: Ms. Barker is a 81 year old female who is currently on medical floor and consulted due to depression. Upon assessment, patient reported that she feels out of it and confused at times. She reported that she does feel depressed. She denied any suicidal thoughts but does report feeling depressed mood and low energy. She also reported that she has not been sleeping or eating well. She denied any previous suicide attempts or hospitalizations. She is currently managed by a treatment team and is taking Effexor at this time. She denied any illicit drug use. Mental Status Exam: Appearance: grossly normal Mental Status: mental status grossly normal Mood: dysthymic mood Affect: Dysphoric affect Speech and Movement: speech and movement normal and speech clear Attitude: cooperative Thought Process: normal Thought Content: hallucinations, no homicidality and suicidality Insight: fair Judgment: fair PMFSH Vaccinated for COVID-19?: Yes Medical History (Updated 11/05/21 @ 14:48 by KAYODE Lockwood) Anxiety Diabetes DVT (deep venous thrombosis) Fibromyalgia Hyperlipidemia Parkinsons disease Surgical History (Updated 11/05/21 @ 14:48 by KAYODE Lockwood) History of appendectomy History of cholecystectomy Social History Smoking Status: Former smoker Substance Use Type: None Substance Abuse Comment: occasional alcohol Meds Medications and Allergies Allergies bupropion [From Wellbutrin] Allergy (Verified 11/04/21 15:50) Hallucinating hydrocodone [From Vicodin] Allergy (Verified 11/04/21 15:50) Unknown Reaction latex Allergy (Verified 11/04/21 15:50) Rash Home Medications levothyroxine 75 mcg tablet 75 mcg PO DAILY 01/18/17 [History Confirmed 11/04/21] metformin 500 mg tablet 1,000 mg PO BID 01/18/17 [History Confirmed 11/04/21] metoprolol tartrate 50 mg tablet 75 mg PO BID 01/18/17 [History Confirmed 11/04/21] omeprazole 40 mg capsule,delayed release 20 mg PO DAILY PRN Acid Reflux 01/18/17[History Confirmed 11/04/21] warfarin 2 mg tablet 2 mg PO DIRECTED 01/18/17 [History Confirmed 11/04/21] acetaminophen 650 mg tablet 650 mg PO TID PRN Pain 11/04/21 [History Confirmed 11/04/21] atorvastatin 40 mg tablet 40 mg PO QHS 11/04/21 [History Confirmed 11/04/21] carbidopa 25 mg-levodopa 100 mg tablet 1.5 tab PO TID 11/04/21 [History Confirmed 11/04/21] cholecalciferol (vitamin D3) 125 mcg (5,000 unit) tablet (Vitamin D3) 125 mcg PODAILY 11/04/21 [History Confirmed 11/04/21] cyanocobalamin (vitamin B-12) 2,000 mcg tablet,extended release (Vitamin B-12 ER) 2,000 mcg PO DAILY 11/04/21 [History Confirmed 11/04/21] vit C 250 mg-vit E 90 mg-zinc 40 mg-copper 1 up-xdertf-iqmlcb capsule (PreserVision AREDS-2) 1 tab PO BID 11/04/21 [History Confirmed 11/04/21] venlafaxine 150 mg capsule,extended release 24 hr 150 mg PO DAILY 11/05/21 [History Confirmed 11/05/21] venlafaxine 75 mg tablet,extended release 24 hr 75 mg PO QPM 11/05/21 [History Confirmed 11/05/21] Exam Physical Exam Vital Signs: Temp Pulse Resp BP Pulse Ox O2 Del Method 97.3 F L 87 16 101/66 97 Room Air 11/05/21 12:00 11/05/21 12:00 11/05/21 12:00 11/05/21 12:00 11/05/21 12:00 11/05/21 12:00 Results Labs CBC & Chem 7: 11/04/21 16:40 11/04/21 16:40 Psychiatry Labs: 11/04/21 11/04/21 11/04/21 16:40 16:40 20:38 RBC 4.38 Hgb 12.8 Hct 39.2 MCV 89.5 MCH 29.2 MCHC 32.6 RDW 16.3 H Plt Count 318 MPV 7.9 Sodium 137 Potassium 3.8 Chloride 95 Carbon Dioxide 30.4 H BUN 14 Creatinine 0.61 Calcium 9.7 Total Bilirubin 1.2 AST 16 ALT 7 L Alkaline Phosphatase 80 Total Protein 7.1 Albumin 3.4 Urine Color Yellow Urine Appearance Cloudy A Urine pH 5.5 Ur Specific Paron 1.029 Urine Protein 30 H Urine Glucose (UA) Normal Urine Ketones 1+ H Urine Occult Blood 3+ H Urine Nitrite Positive H Ur Leukocyte Esterase 3+ H Urine RBC Innumerable H Urine WBC 50-100 H Microbiology Microbiology: Microbiology - Results from entire visit 11/04/21 20:38 Urine - Clean-Voided Midstream Urine Culture - Preliminary Gram Negative Bacilli 11/04/21 18:10 Nasopharyngeal SARS-CoV-2, Influenza & RSV (PCR) - Final 11/04/21 18:10 Nasal SARS Antigen (LFIA) - Final Assessment/Plan (1) Back pain: Code(s): M54.9 - Dorsalgia, unspecified Status: Acute (2) Compression fracture: Status: Acute (3) Depression: Plan: Patient currently reporting some depression but denied suicidal ideation Will adjunct treatment with Remeron 7.5 mg at bedtime Continue Effexor Continue to monitor mental status Risk benefits alternatives explained Please page with any further urgent questions Code(s): F32.A - Depression, unspecified Status: Acute (4) Urinary tract infection: Code(s): N39.0 - Urinary tract infection, site not specified Status: Acute (5) Frequent falls: Code(s): R29.6 - Repeated falls Status: Acute (6) Impaired mobility and ADLs: Code(s): Z74.09 - Other reduced mobility; Z78.9 - Other specified health status Status: Acute (7) Parkinsons disease: Code(s): G20 - Parkinson's disease Status: Acute Documented By: Jairo Benson MD 11/05/21 1509 Signed By: <Electronically signed by Jairo Benson MD> 11/05/[address] [facility] Work Phone: Consult note Author Oswaldo Almonte [facility] November 06, 2021 11:33am Note Date/Time November 06, 2021 11 :33am [facility] [address] [place] [address] Neurosurgery Consult Note Signed Patient: Alton Barker MR#: [id number] : 1940 Acct:[id number] Age/Sex: 81 / F Adm Date: 2 Loc: Room: [address] [place] [address] Type: ADM INOo Attending Dr: Enrrique Mota MD Copies to: MD Oswaldo Kearns MD Robert J Vaschak,DO~ HPI History of Present Illness Consult Date: 11/05/2021 Requesting Provider: CC: Enrrique Mota MD Reason for Consult: worsening urinary and stool incontinence with concern for cauda equina syndrome History of Present Illness: Patient is an 81-year-old female with a past medical history of Parkinson's disease, diabetes, hypothyroidism, depression, and DVT currently on Coumadin. Patient came to the ER on 11/04/21 with a number of complaints. She reports thatover the last few weeks she feels like she has been often declining in health. She states that with her Parkinson's as well as losing family members in the recent past she feels very depressed. Upon examination of the patient she reports that in the last 4 to 5 weeks she has had 7 falls with no known trauma. In the ER she was found to be supratherapeutic on the Coumadin and was given vitamin K as well as found to have a UTI and was started on Rocephin. She also reports that she has had baseline urinary and stool incontinence but that this has gotten worse recently.She was found to have an L1 compression fracture, however the patient states that she has no significant back pain other than her left posterior hip region. She reports no leg pain. She has no other complaints at present she was very conversational Review of Systems Review of Systems All other systems reviewed & are negative unless noted below or in HPI Constitutional Constitutional: Denies chills, Denies fever(s) and Reports frequent falls Eyes Eyes: Denies blind spots, Denies blurry vision and Denies diplopia ENT Ears, Nose, Mouth, and Throat: Denies abnormal hearing, Denies dizziness and Denies headache(s) Cardiovascular Cardiovascular: Denies chest pain and Denies dyspnea Respiratory Respiratory: Denies chest congestion, Denies cough and Denies dyspnea Gastrointestinal Gastrointestinal: Denies abdominal pain, Reports change in stool character, Reports fecal incontinence, Denies nausea and Denies vomiting Genitourinary Genitourinary: Reports urinary incontinence Musculoskeletal Musculoskeletal: Reports back pain, Denies numbness and Denies tingling Neurologic Neurologic: Denies abnormal hearing, Denies abnormal movements, Denies confusionand Reports frequent falls Psychiatric Psychiatric: Reports depression PMFSH Vaccinated for COVID-19?: Yes Medical History Anxiety Diabetes DVT (deep venous thrombosis) Fibromyalgia Hyperlipidemia Parkinsons disease Surgical History History of appendectomy History of cholecystectomy Social History Smoking Status: Former smoker Substance Use Type: None Substance Abuse Comment: occasional alcohol Meds Medications and Allergies Allergies bupropion [From Wellbutrin] Allergy (Verified 11/04/21 15:50) Hallucinating hydrocodone [From Vicodin] Allergy (Verified 11/04/21 15:50) Unknown Reaction latex Allergy (Verified 11/04/21 15:50) Rash Home Medications levothyroxine 75 mcg tablet 75 mcg PO DAILY 01/18/17 [History Confirmed 11/04/21] metformin 500 mg tablet 1,000 mg PO BID 01/18/17 [History Confirmed 11/04/21] metoprolol tartrate 50 mg tablet 75 mg PO BID 01/18/17 [History Confirmed 11/04/21] omeprazole 40 mg capsule,delayed release 20 mg PO DAILY PRN Acid Reflux 01/18/17[History Confirmed 11/04/21] warfarin 2 mg tablet 2 mg PO DIRECTED 01/18/17 [History Confirmed 11/04/21] acetaminophen 650 mg tablet 650 mg PO TID PRN Pain 11/04/21 [History Confirmed 11/04/21] atorvastatin 40 mg tablet 40 mg PO QHS 11/04/21 [History Confirmed 11/04/21] carbidopa 25 mg-levodopa 100 mg tablet 1.5 tab PO TID 11/04/21 [History Confirmed 11/04/21] cholecalciferol (vitamin D3) 125 mcg (5,000 unit) tablet (Vitamin D3) 125 mcg PODAILY 11/04/21 [History Confirmed 11/04/21] cyanocobalamin (vitamin B-12) 2,000 mcg tablet,extended release (Vitamin B-12 ER) 2,000 mcg PO DAILY 11/04/21 [History Confirmed 11/04/21] vit C 250 mg-vit E 90 mg-zinc 40 mg-copper 1 vl-nherly-giibka capsule (PreserVision AREDS-2) 1 tab PO BID 11/04/21 [History Confirmed 11/04/21] venlafaxine 150 mg capsule,extended release 24 hr 150 mg PO DAILY 11/05/21 [History Confirmed 11/05/21] venlafaxine 75 mg tablet,extended release 24 hr 75 mg PO QPM 11/05/21 [History Confirmed 11/05/21] Exam Physical Exam Vital Signs: Temp Pulse Resp BP Pulse Ox O2 Del Method 97.4 F L 90 16 155/77 H 95 Room Air 11/05/21 08:00 11/05/21 08:00 11/05/21 08:00 11/05/21 08:00 11/05/21 08:00 11/05/21 08:00 Narrative: Neurologic: patient is alert and oriented to time place and person cooperative and gives a good history. Sensory:normal light touch upper and lower extremity and trunk through all majordermatomes spine: Right sacroiliac tenderness to palpation no percussible tenderness of thethoracic or lumbar spine. Motor: deltoid bicep tricep handgrip iliopsoas quadricep anterior tibial gastrocnemius are grossly 5/5. Cerebellar: no leadpipe rigidity normal rapid alternating movements reflexes: 0-1+ upper and lower extremities bilaterally with no clonus, negative Neri sign. Cranial nerve examination: Cranial nerve I smell is intact Cranial nerve II vision full to all quadrants bilateral Cranial nerve III pupils were equal round reactive to light unable to do a funduscopic examination Cranial nerve IV through : extraocular motion full to all quadrants Cranial nerve V: V1 V2 V3 intact Cranial nerve VII: face symmetrical bilaterally Cranial nerve VIII hearing intact bilaterally Cranial nerve IX-XI patient can phonate well able to swallow palate elevates able to shrug shoulders Cranial nerve XII tongue midline hips normal range of motion without Sumanth's sign Skin: reasonable turgor and texture no unusual bruising Extremities: 0-1 pulses 0-1+ pulses upper and lower extremity, left mid arm bruising large abdomen: soft nontender Lungs: clear bilaterally Heart: regular rate and rhythm without murmur rub or gallop Neck: supple Head: Right occipital and lateral neck bruising Results Lab Results Labs: Laboratory Results - Last 48 hrs. 11/05/21 06:17: PT 20.0 H D, INR 1.8 11/04/21 20:38: Urine Color Yellow, Urine Appearance Cloudy A, Urine pH 5.5, Ur Specific Paron 1.029, Urine Protein 30 H, Urine Glucose (UA) Normal, Urine Ketones 1+ H, Urine Occult Blood 3+ H, Urine Nitrite Positive H, Urine BilirubinNegative, Urine Urobilinogen Normal, Ur Leukocyte Esterase 3+ H, Urine RBC Innumerable H, Urine WBC 50-100 H, Ur Squamous Epith Cells 5-9 H, Urine Bacteria4+ H, Hyaline Casts Rare, Other Casts None seen 11/04/21 18:10: SARS-CoV-2 Rap RNA(RT-PCR) Negative 11/04/21 18:10: SARS Antigen (LFIA) Negative 11/04/21 18:10: COVID-19 PCR Interp Cancelled, COVID-19 Clin Com Cancelled 11/04/21 16:48: PT 96.2 H, INR 8.2 H* 11/04/21 16:40: TSH 3rd Generation 2.09 11/04/21 16:40: 25-OH Vitamin D Total 71.4 11/04/21 16:40: PHA Creatinine Clear 64.44, Sodium 137, Potassium 3.8, Chloride 95, Carbon Dioxide 30.4 H, BUN 14, Creatinine 0.61, Est GFR ( Amer) > 60,Est GFR (Non-Af Amer) > 60, Glucose 131 H, Calcium 9.7, Total Bilirubin 1.2, AST16, ALT 7 L, Alkaline Phosphatase 80, Total Protein 7.1, Albumin 3.4, Globulin 3.7, Albumin/Globulin Ratio 0.9 11/04/21 16:40: Corrected WBC 7.9, Uncorrected WBC Count 7.9, RBC 4.38, Hgb 12.8, Hct 39.2, MCV 89.5, MCH 29.2, MCHC 32.6, RDW 16.3 H, Plt Count 318, MPV 7.9, Neut % (Auto) 67.7, Lymph % (Auto) 20.3, Metcalfe % (Auto) 9.7, Eos % (Auto) 1.7, Baso % (Auto) 0.6, Neut # (Auto) 5.3, Lymph # (Auto) 1.6, Metcalfe # (Auto) 0.8, Eos # (Auto) 0.1, Baso # (Auto) 0.0, Nucleated RBC % (auto) 0.1 Microbiology Micro: Microbiology - Results from entire visit 11/04/21 20:38 Urine - Clean-Voided Midstream Urine Culture - Preliminary Gram Negative Bacilli 11/04/21 18:10 Nasopharyngeal SARS-CoV-2, Influenza & RSV (PCR) - Final 11/04/21 18:10 Nasal SARS Antigen (LFIA) - Final Imaging CT scan - cervical: report reviewed and image reviewed Additional studies: CT thoracic and lumbar spine, MRI lumbar spine reviewed Assessment/Plan (1) Impaired mobility and ADLs: Plan: Patient is an 89-year-old female with recent declining health. Neurosurgery wasconsulted due to her compression fracture of L1 as well as mild spinal canal stenosis with concern for cauda equina syndrome based on her increased urinary and stool incontinence. After discussion with patient it seems as though she has some baseline incontinence. I largely believe that most of this can be contributed to her Parkinson's as well as her depression and based on the MRI she does not have cauda equina syndrome. I independently reviewed the MRI of the lumbar spine showing an acute L1 fracture inferior endplate. There is also a L4-5 left-sided disc herniation. The patient has no symptoms with regard to either of these she has no percussible tenderness of the spine she has no left radicular leg pain. I would recommend no acute treatment. The big concern for this patient is frequent falls I think that needs to be addressed. If she is safe at home etc. Code(s): Z74.09 - Other reduced mobility; Z78.9 - Other specified health status Status: Acute (2) Parkinsons disease: Code(s): G20 - Parkinson's disease Status: Acute (3) Frequent falls: Code(s): R29.6 - Repeated falls Status: Acute Documented By: Oswaldo Almonte MD 11/05/21 1429 Signed By: <Electronically signed by MD Oswaldo Almonte> 11/06/21 1133 [facility] Work Phone: Discharge summary Author Gaye Claire [facility] November 11, 2021 5:21pm Note Date/Time November 10, 2021 11 :33am [facility] [address] [place] [address] Discharge Summary Signed Patient: Alton Barker MR#: [id number] : 1940 Acct:[id number] Age/Sex: 81 / F Adm Date: 2 Loc: Room: [address] [place] [address]: Gaye Claire MD Copies to: Tonya Suh, [facility]- MD oHney Collado,DO~ Providers Date of Admission: 11/04/21 Date of Discharge: 11/11/21 Discharging Provider: Tonya Suh Additional Discharging Provider: Gaye Claire Primary Care Provider: Honey Rabago Consults: 11/04/21 18:25 OT [Consult to Occupational Therapy] Routine PT [Consult to Physical Therapy] Routine 11/04/21 20:48 Consult to Psychiatry Routine 11/05/21 13:46 Consult to Neurosurgery Routine Discharge Diagnosis (1) Compression fracture: (2) Depression: (3) Urinary tract infection: (4) Frequent falls: (5) Parkinsons disease: (6) Chronic anticoagulation: Final Diagnosis Final Discharge Diagnosis: Frequent falls Parkinson's disease L1 compression fracture E. coli UTI Depression Summary Hospital Course Hospital course: 81-year-old female past medical history significant for hypothyroid, GERD, diabetes, chronic anticoagulation with history of DVT, hyperlipidemia, hypertension, Parkinson's disease. Presented to the emergency department with reports of low back pain. Had fallen earlier in the month with documentation of October 20 in the emergency department with no evidence of abnormality at that time with reports of back pain. Since that time patient hasbeen declining with decreased appetite and weight, uncontrolled pain, depression, leg weakness, incontinence. MRI of the lumbar spine showed an L1 compression deformity with corresponding marrow edema extending into the adjacent paraspinous musculature, L4-5 circumferential disc bulge with facet hypertrophy, mild spinal canal stenosis with moderate to severe left and mild right neuroforaminal narrowing with mass-effect on exiting left L4 nerve roots. She was evaluated by neurosurgery with conservative management recommended. Shewas seen by therapy services with recommendation for further rehab, plan to discharge disposition to inpatient rehab unit. Patient does have chronic Parkinson's disease and follows with neurology Dr. Lal and movement disorderspecialist Gloria Lal nurse practitioner at [facility] routinely. She was continued on her routine Parkinson's meds. She also was found with E. coli UTI initiated on ceftriaxone changed to cefdinir for total 7-day course planned. She was seen by psychiatry for depression with initiation of Remeron and Effexor. Time Spent with Patient Time spent providing/coordinating discharge services (# min): 40 Diagnostic Studies Completed and Pending Studies Pending studies at discharge: 11/11/21 05:00 Prothrombin Time INR IN AM 11/12/21 05:00 Prothrombin Time INR IN AM Labs on day of discharge: 11/10/21 06:01: POC Glucose 136, POC Glucose Comment Glu2: cleaned meter 11/10/21 05:47: PT 28.4 H, INR 2.5 11/09/21 21:09: POC Glucose 165, POC Glucose Comment Glu2: cleaned meter 11/09/21 16:03: POC Glucose 156, POC Glucose Comment Glu2: cleaned meter 11/09/21 11:17: POC Glucose 257 Exam Physical Exam Vital Signs: Temp Pulse Resp BP Pulse Ox O2 Del Method 97.8 F 93 H 16 131/83 97 Room Air 11/10/21 08:00 11/10/21 08:00 08/30/22 03:02 11/10/21 08:34 11/10/21 08:00 11/10/21 08:00 Narrative: Alert, in chair, no distress at rest RRR no abnormal heart tones dimin without wheeze or rhonchi, RA S/NT, NABS, round no edema BLE, calves nontender Discharge Plan Discharge Plan Patient Disposition: Rehab [facility] Activity: No Activity Restriction Diet: Regular Additional Instructions: REHAB TO MANAGE: PT/OT to eval and treat Monitor VS per protocol Monitor FSBS per protocol Please draw a daily PT/INR. *Pharmacy to manage Coumadin Please follow Dietitian recommendations: *Boost Plus, 1 container, BID with meals Maintain high risk fall precautions Care to be managed by Rehab providers Prescriptions: New polyethylene glycol 3350 [Miralax] 17 gram Powder In Packet 17 g PO BID Qty: 0 0RF sennosides-docusate sodium [Stool Softener-Stimulant Laxat] 8.6-50 mg Tablet 2 tab PO BID Qty: 0 0RF oxycodone 5 mg Tablet 5 mg PO Q6HR PRN (Reason: pain) Qty: 0 0RF mirtazapine 7.5 mg Tablet 7.5 mg PO QHS Qty: 0 0RF Warfarin - Pharmacy Dosing [Coumadin Pharmacy Dosing] 1 ea miscellaneous ONCE PRNQty: 0 0RF warfarin [Jantoven] 1 mg Tablet 1 mg PO ONCE Qty: 0 0RF cefdinir 300 mg Capsule 300 mg PO BID 2 Days Qty: 4 0RF Continued metformin 500 MG tablet 1,000 mg PO BID.WITH.MEALS Label Comments: omeprazole 40 MG capsule,delayed release(DR/EC) 20 mg PO DAILY PRN (Reason: Acid Reflux) Label Comments: levothyroxine 75 MCG tablet 75 mcg PO DAILY@0630 Label Comments: warfarin 2 MG tablet 2 mg PO DIRECTED Label Comments: Rx Instructions: 1 tab daily on Mon, Tues, Wed, Fri, Sat, Sun 0.5 tab daily on Thurs metoprolol tartrate 50 MG tablet 75 mg PO BID Label Comments: atorvastatin 40 mg Tablet 40 mg PO QHS cyanocobalamin (vitamin B-12) [Vitamin B-12] 2,000 mcg Tablet Extended Release 2,000 mcg PO DAILY carbidopa-levodopa 25-100 mg tablet 1.5 tab PO TID Label Comments: TAKE 1 & 1/2 (ONE & ONE-HALF) TABLETS BY MOUTH THREE TIMES DAILY cholecalciferol (vitamin D3) [Vitamin D3] 125 mcg (5,000 unit) Tablet 125 mcg PO QAM PreserVision AREDS-2 250-90-40-1 mg Capsule 1 tab PO BID venlafaxine 150 mg capsule,extended release 24hr 150 mg PO QAM Label Comments: TAKE 1 CAPSULE BY MOUTH ONCE DAILY IN THE MORNING WITH FOOD (PLUS 75MG IN EVENING) venlafaxine 75 mg tablet extended release 24hr 75 mg PO QPM Label Comments: TAKE 1 TABLET BY MOUTH ONCE DAILY IN THE EVENING WITH FOOD (PLUS 150MG IN THEMORNING) Discontinued acetaminophen 650 mg Tablet 650 mg PO TID PRN (Reason: Pain) No Action acetaminophen 500 mg tablet 650 mg PO TID PRN (Reason: Pain) lidocaine [Lidocaine Pain Relief] 4 % adhesive patch,medicated 1 patch topical QAM Documented By: WILFRID Samuels 2 1300 Signed By: <Electronically signed by WILFRID Suh> 11/11/21 1356 <Electronically signed by Gaye Claire MD> 11/11/[address] [facility] Work Phone: Evaluation noteNo assessment information available [facility] note[facility] InformationNort Interhyp Other Evaluation note* Diagnosis Recurrent episodes of unresponsiveness- Primary Parkinson's disease (HCC) Paralysis agitans Depression with anxiety Dysthymic disorder Fatigue, unspecified type Excessive daytime sleepiness [facility] Diagnosis Onset Date Resolution Status Back pain acute Chronic anticoagulation acut e Compression fracture acute Depression acute Frequent falls acute Impaired mobility and ADLs a cute Parkinsons disease acute Urinary tract infection acut e Back pain acute Chronic anticoagulation acut e Compression fracture acute Depression acute Diabetes acute GERD (gastroesophageal reflux disease) acute Hyperlipidemia acute Hypertension acute Hypothyroid acute Impaired mobility and ADLs a cute Parkinsons disease acute Urinary tract infection acut e [facility] Work Phone: Evaluation note* Diagnosis Onset Date Resolution Status Back pain acute Chronic anticoagulation acut e Compression fracture acute Depression acute Frequent falls acute Impaired mobility and ADLs a cute Parkinsons disease acute Urinary tract infection acut e Anemia acute Back pain acute Chronic anticoagulation acut e Compression fracture acute Depression acute Diabetes acute GERD (gastroesophageal reflux disease) acute Hyperlipidemia acute Hypertension acute Hypothyroid acute Impaired mobility and ADLs a cute Parkinsons disease acute Urinary tract infection acut e [facility] Work Phone: Evaluation note* Diagnosis Parkinson's disease (HCC) Paralysis agitans [facility] Diagnosis Parkinson's disease (HCC)- Primary Paralysis agitans Depression with anxiety Dysthymic disorder documented in this encounter [facility] note* Diagnosis Parkinson's disease without dyskinesia, with fluctuating manifestations- Primary Depression with anxiety Dysthymic disorder documented in this encounter [facility] note* Diagnosis Parkinson's disease Paralysis agitans documented in this encounter [facility] general Narrative - Reported* Type Description Date Medical History diabetes mellitus Medical History coronary artery disease Medical History Hypothyroidism Medical History Esophageal reflux Medical History depression Medical History essential tremor Surgical History tonsillectomy Surgical History cholecystectomy Surgical History appendectomy Surgical History hemorrhoidectomy Surgical History colonoscopy Surgical History heart catheterization Hospitalization History see above [facility] videof.me Other History general [facility] - [facility] Other Progress note Author Enrrique Mota [facility] November 06, 2021 7:31am Note Date/Time November 05, 2021 3: 01pm [facility] [address] [place] [address] Hospitalist Progress Note Signed Patient: Alton Barker MR#: [id number] : 1940 Acct:[id number] Age/Sex: 81 / F Adm Date: 2 Loc: Room: [address] [place] [address] Type: ADM INOo Attending Dr: Enrrique Mota MD Copies to: ~ Date of Service: 11/05/2021 Subjective Subjective Narrative: Patient seen and examined, sitting up in chair at time of exam. She is pleasant, mildly confused. She is oriented to self, knows she is at [facility]. Initially states year is 1921, then corrects to 2021. States the month is December . Disoriented to situation. She does affirm that she has hadfrequent falls of late and has not been eating or drinking well. She was recently medicated for pain with oxycodone. She feels this is making her somewhat drowsy and states that pain is overall controlled. She does have some upper and mid lumbar spine tenderness to palpation, no lower lumbar or sacral tenderness. With mild confusion, exam is somewhat complicated. She states thatshe does have bilateral lower extremity numbness at times, reports presently shehas numbness of the left lower extremity, sensation is dulled to light touch. Exam Physical Exam Vital Signs: Temp Pulse Resp BP Pulse Ox O2 Del Method 36.3 C L 90 16 155/77 H 95 Room Air 11/05/21 08:00 11/05/21 08:00 11/05/21 08:00 11/05/21 08:00 11/05/21 08:00 11/05/21 08:00 Const General: cooperative and comfortable Nutritional Appearance: overweight Orientation: alert, awake, oriented x3 (grossly) and confused Limitations: altered mental status HEENT Head: normocephalic and atraumatic Eyes General: appearance normal, both eyes and all related structures Neck Neck: normal visual inspection Chest Chest palpation & inspection: normal inspection of the chest Resp Effort & Inspection: normal respiratory effort, able to speak in complete sentences and symmetric chest movement Auscultation: clear to auscultation bilaterally, no rhonchi and no wheezes Cardio Rate: regular rate Rhythm: regular rhythm Heart Sounds: S1 normal and S2 normal GI Inspection: normal to inspection Palpation: soft and nontender Auscultation: normal bowel sounds General: deferred Skin General: no rashes or lesions noted Neuro General: patient alert, patient awake, patient oriented x3 (grossly), moves all extremities and patient confused Cranial Nerves: CN's II-XII intact bilaterally Cognition: abnormal cognition Speech: other (Speech is slow and hypophonic) Gait: other (not assessed) Extrem General: no calf tenderness Objective Lab Results CBC & Chem 7: 11/04/21 16:40 11/04/21 16:40 Microbiology Results Microbiology 11/04/21 20:38 Urine - Clean-Voided Midstream Urine Culture - Preliminary Gram Negative Bacilli 11/04/21 18:10 Nasopharyngeal SARS-CoV-2, Influenza & RSV (PCR) - Final 11/04/21 18:10 Nasal SARS Antigen (LFIA) - Final Meds Allergies and Active Meds Allergies bupropion [From Wellbutrin] Allergy (Verified 11/04/21 15:50) Hallucinating hydrocodone [From Vicodin] Allergy (Verified 11/04/21 15:50) Unknown Reaction latex Allergy (Verified 11/04/21 15:50) Rash Active Meds: Active Medications Generic Name Dose Route Start Last Admin Trade Name Freq PRN Reason Stop Dose Admin Acetaminophen 1,000 mg 11/05/21 14:00 Acetaminophen 500 Mg Tablet PO 11/05/22 13:59 TID KAYLIN Atorvastatin Calcium 40 mg 11/04/21 22:00 11/04/21 23:58 Atorvastatin 40 Mg Tablet PO 11/04/22 21:59 40 mg QHS KAYLIN Administration Carbidopa/Levodopa 1.5 tab 11/04/21 22:00 11/05/21 09:16 Carbidopa/Levodopa 25-100 Mg 1 Tab Tablet PO 11/04/22 21:59 1.5 tab TID KAYLIN Administration Ceftriaxone Sodium 1 gm in 50 mls @ 100 mls/hr 11/05/21 13:45 Rocephin IV Q24H KAYLIN Levothyroxine Sodium 75 mcg 11/05/21 06:30 11/05/21 06:29 Levothyroxine 75 Mcg Tablet PO 11/05/22 06:29 75 mcg DAILY@0630 KAYLIN Administration Metformin HCl 1,000 mg 11/05/21 08:00 Metformin 500 Mg Tablet PO 11/05/22 07:59 BID.WITH.MEALS [facility] Metoprolol Tartrate 75 mg 11/04/21 21:00 11/05/21 09:15 Metoprolol Tartrate 50 Mg Tablet PO 11/04/22 20:59 75 mg BID KAYLIN Administration Omeprazole 20 mg 11/06/21 07:30 Omeprazole 20 Mg Capsule.Dr PO 11/06/22 07:29 DAILY.AC.BKFAST KAYLIN Oxycodone HCl 5 mg 11/04/21 18:21 11/05/21 10:32 Oxycodone Ir 5 Mg Tablet PO 5 mg Q6HR PRN Administration pain Senna/Docusate Sodium 2 tab 11/04/21 21:00 11/05/21 09:15 Sennosides/Docusate 8.6-50mg 1 Tab Tablet PO 11/04/22 20:59 2 tab BID KAYLIN Administration Sodium Chloride 0 ml 11/04/21 15:49 11/04/21 23:59 Sodium Chloride 0.9 % 10 Ml Syringe IV-PUSH 11/04/22 15:48 10 ml PRN PRN Administration Flush Venlafaxine HCl 75 mg 11/05/21 18:00 Venlafaxine 75 Mg Tablet PO 11/05/22 17:59 DAILY.PC.SUPPER KAYLIN Vitamin D 125 mcg 11/05/21 09:00 11/05/21 09:15 Cholecalciferol 125 Mcg (5,000 Units) Capsule PO 11/05/22 08:59 125 mcg DAILY KAYLIN Administration Warfarin Sodium 1 each 11/04/21 18:21 Warfarin - Pharmacy Dosing MISCELLANE 11/04/22 18:20 ONCE PRN ZZ.Pharmacy Consult Protocol Warfarin Sodium 2 mg 11/05/21 17:00 Warfarin 2 Mg Tablet PO 11/05/21 17:01 ONCE ONE A&P - Hospitalist Assessment/Plan (1) Back pain: (2) Compression fracture: (3) Depression: (4) Urinary tract infection: (5) Frequent falls: (6) Impaired mobility and ADLs: (7) Parkinsons disease: Plan Frequent falls L1 compression fracture Back pain - Son and DIL report fall on 10/19. Worsening mobility and back pain since fall. Previously ambulated with cane, now using walker with difficulty. Endorsing lower extremity numbness, bilateral at times, though mostly LLE. - MRI lumbar spine showing L1 compression deformity with corresponding marrow edema with edema extending into the adjacent paraspinous musculature, L4-5 circumferential disc bulge with facet hypertrophy, mild spinal canal stenosis with moderate to severe left and mild right neuroforaminal narrowing with mass-effect on the exiting left L4 nerve roots. -Consult to neurosurgery. Appreciate neurosurgery recommendations -Supportive care, analgesics -PT/OT eval's. Family is hopeful that the patient will be able to get further rehab on the acute inpatient rehab unit to facilitate eventual safe discharge home where she lives with her son and [id number] Impaired mobility and ADLs Parkinson's disease ? Patient follows with neurology, Dr. Lal, and movement disorder specialist,Gloria Lal, ELDON, at [facility] ? Continue Sinemet ? PT/OT eval's Acute urinary tract infection ? Urine culture showing greater than 100 K GNB ? Continue ceftriaxone, follow culture Depression ?Daughter and son-in-law expressed concern regarding worsening depression. Reports depression has been a lifelong gregorio ; however, they are concerned that this has progressed of late. State patient demonstrating decreased interestand has not been eating well. ?Psychiatry consulted. Appreciate psychiatric recommendations. Chronic conditions 1. Hypothyroidism?levothyroxine 2. GERD?omeprazole 3. T2DM?metformin 4. DVT?Coumadin, pharmacy to dose 5. Dyslipidemia?atorvastatin 6. Hypertension?metoprolol Documented By: KAYODE Lockwood 11/05/21 1 340 Signed By: <Electronically signed by KAYODE Barr> 11/05/21 1507 <Electronically signed by Enrrique Mota MD> 11/06/[address] [facility] Work Phone: Progress note Author Enrrique Mota [facility] November 07, 2021 4:52pm Note Date/Time November 06, 2021 11 :01am [facility] [address] [place] [address] Hospitalist Progress Note Signed Patient: Alton Barker MR#: [id number] : 1940 Acct:[id number] Age/Sex: 81 / F Adm Date: 2 Loc: Room: [address] [place] [address] Type: ADM INOo Attending Dr: Enrrique Mota MD Copies to: ~ Date of Service: 11/06/2021 Subjective Subjective Narrative: Patient is seen and examined. She is sitting up in bed at time of exam. When asked how she is feeling, she states not well, I am confused . She has howeveroriented to self, knows she is at [facility], and was able to tell me events surrounding her admission. She showed me a paper with [facility] facilities listed on it, and indicated that this was the source of her confusion. She indicates she is wanting to work with therapy and get stronger. She states her back pain right now is tingling . She reports her pain is much worse with movement. Denying headache or dizziness. No chest pain or shortnessof breath. No abdominal pain or nausea. Exam Physical Exam Vital Signs: Temp Pulse Resp BP Pulse Ox O2 Del Method 36.4 C L 88 18 125/72 95 Room Air 11/06/21 08:08 11/06/21 08:08 11/06/21 08:08 11/06/21 08:08 11/06/21 08:08 11/06/21 08:08 Const General: cooperative and comfortable Nutritional Appearance: overweight Orientation: alert, awake, oriented x3 (grossly) and confused Limitations: altered mental status HEENT Head: normocephalic and atraumatic Eyes General: appearance normal, both eyes and all related structures Neck Neck: normal visual inspection Chest Chest palpation & inspection: normal inspection of the chest Resp Effort & Inspection: normal respiratory effort, able to speak in complete sentences and symmetric chest movement Auscultation: clear to auscultation bilaterally, no rhonchi and no wheezes Cardio Rate: regular rate Rhythm: regular rhythm Heart Sounds: S1 normal and S2 normal GI Inspection: normal to inspection Palpation: soft and nontender Auscultation: normal bowel sounds General: deferred Skin General: no rashes or lesions noted Neuro General: patient alert, patient awake, patient oriented x3 (grossly), moves all extremities and patient confused Cranial Nerves: CN's II-XII intact bilaterally Cognition: abnormal cognition Speech: other (Speech is slow and hypophonic) Gait: other (not assessed) Extrem General: no calf tenderness Objective Lab Results CBC & Chem 7: 11/06/21 06:57 11/06/21 06:57 Microbiology Results Microbiology 11/04/21 20:38 Urine - Clean-Voided Midstream Urine Culture - Final Escherichia coli Meds Allergies and Active Meds Allergies bupropion [From Wellbutrin] Allergy (Verified 11/04/21 15:50) Hallucinating hydrocodone [From Vicodin] Allergy (Verified 11/04/21 15:50) Unknown Reaction latex Allergy (Verified 11/04/21 15:50) Rash Active Meds: Active Medications Generic Name Dose Route Start Last Admin Trade Name Freq PRN Reason Stop Dose Admin Acetaminophen 1,000 mg 11/05/21 14:00 11/06/21 08:09 Acetaminophen 500 Mg Tablet PO 11/05/22 13:59 1,000 mg TID KAYLIN Administration Atorvastatin Calcium 40 mg 11/04/21 22:00 11/05/21 21:47 Atorvastatin 40 Mg Tablet PO 11/04/22 21:59 40 mg QHS KAYLIN Administration Carbidopa/Levodopa 1.5 tab 11/04/21 22:00 11/06/21 08:10 Carbidopa/Levodopa 25-100 Mg 1 Tab Tablet PO 11/04/22 21:59 1.5 tab TID KAYLIN Administration Ceftriaxone Sodium 1 gm in 50 mls @ 100 mls/hr 11/06/21 00:00 11/05/21 23:06 Rocephin IV 100 mls/hr Q24H KAYLIN Administration Levothyroxine Sodium 75 mcg 11/05/21 06:30 11/06/21 06:03 Levothyroxine 75 Mcg Tablet PO 11/05/22 06:29 75 mcg DAILY@0630 KAYLIN Administration Metformin HCl 1,000 mg 11/05/21 08:00 11/06/21 08:09 Metformin 500 Mg Tablet PO 11/05/22 07:59 1,000 mg BID.WITH.MEALS KAYLIN Administration Metoprolol Tartrate 75 mg 11/04/21 21:00 11/06/21 08:09 Metoprolol Tartrate 50 Mg Tablet PO 11/04/22 20:59 75 mg BID KAYLIN Administration Mirtazapine 7.5 mg 11/05/21 22:00 11/05/21 21:46 Mirtazapine 7.5 Mg Tablet PO 11/05/22 21:59 7.5 mg QHS KAYLIN Administration Omeprazole 20 mg 11/06/21 07:30 11/06/21 08:09 Omeprazole 20 Mg Capsule.Dr PO 11/06/22 07:29 20 mg DAILY.AC.BKFAST KAYLIN Administration Oxycodone HCl 5 mg 11/04/21 18:21 11/05/21 10:32 Oxycodone Ir 5 Mg Tablet PO 5 mg Q6HR PRN Administration pain Potassium Chloride 20 meq 11/06/21 09:49 11/06/21 10:42 Potassium Chloride Er 20 Meq Tab.Er.Prt PO 11/06/22 09:48 20 meq DAILY PRN Administration Hypokalemia Potassium Chloride 40 meq 11/06/21 09:49 Potassium Chloride Er 20 Meq Tab.Er.Prt PO 11/06/22 09:48 DAILY PRN Hypokalemia Senna/Docusate Sodium 2 tab 11/04/21 21:00 11/06/21 08:10 Sennosides/Docusate 8.6-50mg 1 Tab Tablet PO 11/04/22 20:59 2 tab BID KAYLIN Administration Sodium Chloride 0 ml 11/04/21 15:49 11/04/21 23:59 Sodium Chloride 0.9 % 10 Ml Syringe IV-PUSH 11/04/22 15:48 10 ml PRN PRN Administration Flush Venlafaxine HCl 75 mg 11/05/21 21:00 11/05/21 21:46 Venlafaxine Er 75 Mg Cap.Er.24h PO 11/05/22 20:59 75 mg QPM KAYLIN Administration Venlafaxine HCl 150 mg 11/06/21 09:00 11/06/21 08:10 Venlafaxine Er 150 Mg Cap.Er.24h PO 11/06/22 08:59 150 mg DAILY KAYLIN Administration Vitamin D 125 mcg 11/05/21 09:00 11/06/21 08:09 Cholecalciferol 125 Mcg (5,000 Units) Capsule PO 11/05/22 08:59 125 mcg DAILY KAYLIN Administration Warfarin Sodium 1 each 11/04/21 18:21 Warfarin - Pharmacy Dosing MISCELLANE 11/04/22 18:20 ONCE PRN ZZ.Pharmacy Consult Protocol A&P - Hospitalist Assessment/Plan (1) Back pain: (2) Compression fracture: (3) Depression: (4) Urinary tract infection: (5) Frequent falls: (6) Impaired mobility and ADLs: (7) Parkinsons disease: Plan Frequent falls L1 compression fracture Back pain - Son and DIL report fall on 10/19. Worsening mobility and back pain since fall. Previously ambulated with cane, now using walker with difficulty. Endorsing lower extremity numbness, bilateral at times, though mostly LLE. - MRI lumbar spine showing L1 compression deformity with corresponding marrow edema with edema extending into the adjacent paraspinous musculature, L4-5 circumferential disc bulge with facet hypertrophy, mild spinal canal stenosis with moderate to severe left and mild right neuroforaminal narrowing with mass-effect on the exiting left L4 nerve roots. -Consult to neurosurgery. Appreciate neurosurgery recommendations -Supportive care, analgesics -PT/OT recommending further rehab. Family is hopeful that the patient will be able to get further rehab on the acute inpatient rehab unit to facilitate eventual safe discharge home where she lives with her son and [id number] Impaired mobility and ADLs Parkinson's disease ? Patient follows with neurology, Dr. Lal, and movement disorder specialist,Gloria Lal CNP, at [facility] ? Continue Sinemet ? PT/OT recommending further rehab Acute urinary tract infection ? Urine culture showing greater than 100 K GNB ? Continue ceftriaxone, follow culture Depression ?Daughter and son-in-law expressed concern regarding worsening depression. Reports depression has been a lifelong gregorio ; however, they are concerned that this has progressed of late. State patient demonstrating decreased interestand has not been eating well. ?Psychiatry evaluated. Initiated on HS Remeron in addition to Effexor Chronic conditions 1. Hypothyroidism?levothyroxine 2. GERD?omeprazole 3. T2DM?metformin 4. DVT?Coumadin, pharmacy to dose 5. Dyslipidemia?atorvastatin 6. Hypertension?metoprolol Son and DIL updated telephonically Documented By: KAYODE Lockwood 11/06/21 1 055 Signed By: <Electronically signed by KAYODE Barr> 11/06/21 1105 <Electronically signed by Enrrique Mtoa MD> 11/07/[address] [facility] Work Phone: Progress note Author Enrrique Mota [facility] November 07, 2021 4:47pm Note Date/Time November 07, 2021 11 :18am [facility] [address] [place] [address] Hospitalist Progress Note Signed Patient: Alton Barker MR#: [id number] : 1940 Acct:[id number] Age/Sex: 81 / F Adm Date: 2 Loc: Room: [address] [place] [address] Type: ADM INOo Attending Dr: Enrrique Mota MD Copies to: ~ Date of Service: 11/07/2021 Subjective Subjective Narrative: Patient is seen and examined. She is sitting up in chair at time of exam. She is much more bright today, cheerful. States she is doing well. Reports she didrequire pain medication this morning due to significant back pain. This is onlythe second time she has had to take oxycodone. Overall pain is fairly well controlled. She denies headache. She does sometimes have dizziness with positionchange. No chest pain or shortness of breath. No abdominal pain or nausea. Shehas not had a BM since 11/04. Bowel regimen in place Exam Physical Exam Vital Signs: Temp Pulse Resp BP Pulse Ox O2 Del Method 36.3 C L 102 H 16 102/68 100 Room Air 11/07/21 08:00 11/07/21 08:00 11/07/21 08:00 11/07/21 08:00 11/07/21 08:00 11/07/21 08:00 Const General: cooperative and comfortable Nutritional Appearance: overweight Orientation: alert, awake, oriented x3 (grossly) and confused Limitations: altered mental status HEENT Head: normocephalic and atraumatic Eyes General: appearance normal, both eyes and all related structures Neck Neck: normal visual inspection Chest Chest palpation & inspection: normal inspection of the chest Resp Effort & Inspection: normal respiratory effort, able to speak in complete sentences and symmetric chest movement Auscultation: clear to auscultation bilaterally, no rhonchi and no wheezes Cardio Rate: regular rate Rhythm: regular rhythm Heart Sounds: S1 normal and S2 normal GI Inspection: normal to inspection Palpation: soft and nontender Auscultation: normal bowel sounds General: deferred Skin General: no rashes or lesions noted Neuro General: patient alert, patient awake, patient oriented x3 (grossly), moves all extremities and patient confused Cranial Nerves: CN's II-XII intact bilaterally Cognition: abnormal cognition Speech: other (Speech is slow and hypophonic) Gait: other (not assessed) Extrem General: no calf tenderness Objective Lab Results CBC & Chem 7: 11/06/21 06:57 11/06/21 06:57 Microbiology Results Microbiology 11/04/21 20:38 Urine - Clean-Voided Midstream Urine Culture - Final Escherichia coli Meds Allergies and Active Meds Allergies bupropion [From Wellbutrin] Allergy (Verified 11/04/21 15:50) Hallucinating hydrocodone [From Vicodin] Allergy (Verified 11/04/21 15:50) Unknown Reaction latex Allergy (Verified 11/04/21 15:50) Rash Active Meds: Active Medications Generic Name Dose Route Start Last Admin Trade Name Freq PRN Reason Stop Dose Admin Acetaminophen 1,000 mg 11/05/21 14:00 11/07/21 09:58 Acetaminophen 500 Mg Tablet PO 11/05/22 13:59 1,000 mg TID KAYLIN Administration Atorvastatin Calcium 40 mg 11/04/21 22:00 11/06/21 21:18 Atorvastatin 40 Mg Tablet PO 11/04/22 21:59 40 mg QHS KAYLIN Administration Carbidopa/Levodopa 1.5 tab 11/04/21 22:00 11/07/21 09:58 Carbidopa/Levodopa 25-100 Mg 1 Tab Tablet PO 11/04/22 21:59 1.5 tab TID KAYLIN Administration Enoxaparin Sodium 90 mg 11/06/21 22:00 11/07/21 00:45 Enoxaparin 300 Mg/3 Ml Vial SUBCUT 11/06/22 21:59 90 mg Q12HR.10A.10P KAYLIN Administration Ceftriaxone Sodium 1 gm in 50 mls @ 100 mls/hr 11/06/21 00:00 11/07/21 00:45 Rocephin IV 11/10/21 23:59 100 mls/hr Q24H KAYLIN Administration Levothyroxine Sodium 75 mcg 11/05/21 06:30 11/07/21 05:30 Levothyroxine 75 Mcg Tablet PO 11/05/22 06:29 75 mcg DAILY@0630 KAYLIN Administration Metformin HCl 1,000 mg 11/05/21 08:00 11/07/21 09:58 Metformin 500 Mg Tablet PO 11/05/22 07:59 1,000 mg BID.WITH.MEALS KAYLIN Administration Metoprolol Tartrate 75 mg 11/04/21 21:00 11/07/21 09:58 Metoprolol Tartrate 50 Mg Tablet PO 11/04/22 20:59 75 mg BID KAYLIN Administration Mirtazapine 7.5 mg 11/05/21 22:00 11/06/21 21:18 Mirtazapine 7.5 Mg Tablet PO 11/05/22 21:59 7.5 mg QHS KAYLIN Administration Omeprazole 20 mg 11/06/21 07:30 11/07/21 09:58 Omeprazole 20 Mg Capsule.Dr PO 11/06/22 07:29 20 mg DAILY.AC.BKFAST KAYLIN Administration Oxycodone HCl 5 mg 11/04/21 18:21 11/07/21 04:55 Oxycodone Ir 5 Mg Tablet PO 5 mg Q6HR PRN Administration pain Potassium Chloride 20 meq 11/06/21 09:49 11/07/21 09:59 Potassium Chloride Er 20 Meq Tab.Er.Prt PO 11/06/22 09:48 20 meq DAILY PRN Administration Hypokalemia Potassium Chloride 40 meq 11/06/21 09:49 Potassium Chloride Er 20 Meq Tab.Er.Prt PO 11/06/22 09:48 DAILY PRN Hypokalemia Senna/Docusate Sodium 2 tab 11/04/21 21:00 11/07/21 09:58 Sennosides/Docusate 8.6-50mg 1 Tab Tablet PO 11/04/22 20:59 2 tab BID KAYLIN Administration Sodium Chloride 0 ml 11/04/21 15:49 11/04/21 23:59 Sodium Chloride 0.9 % 10 Ml Syringe IV-PUSH 11/04/22 15:48 10 ml PRN PRN Administration Flush Venlafaxine HCl 75 mg 11/05/21 21:00 11/06/21 21:18 Venlafaxine Er 75 Mg Cap.Er.24h PO 11/05/22 20:59 75 mg QPM KAYLIN Administration Venlafaxine HCl 150 mg 11/06/21 09:00 11/07/21 09:58 Venlafaxine Er 150 Mg Cap.Er.24h PO 11/06/22 08:59 150 mg DAILY KAYLIN Administration Vitamin D 125 mcg 11/05/21 09:00 11/07/21 09:58 Cholecalciferol 125 Mcg (5,000 Units) Capsule PO 11/05/22 08:59 125 mcg DAILY KAYLIN Administration Warfarin Sodium 1 each 11/04/21 18:21 Warfarin - Pharmacy Dosing MISCELLANE 11/04/22 18:20 ONCE PRN ZZ.Pharmacy Consult Protocol A&P - Hospitalist Assessment/Plan (1) Back pain: (2) Compression fracture: (3) Depression: (4) Urinary tract infection: (5) Frequent falls: (6) Impaired mobility and ADLs: (7) Parkinsons disease: Plan Frequent falls L1 compression fracture Back pain - Son and DIL report fall on 10/19. Worsening mobility and back pain since fall. Previously ambulated with cane, now using walker with difficulty. Endorsing lower extremity numbness, bilateral at times, though mostly LLE. - MRI lumbar spine showing L1 compression deformity with corresponding marrow edema with edema extending into the adjacent paraspinous musculature, L4-5 circumferential disc bulge with facet hypertrophy, mild spinal canal stenosis with moderate to severe left and mild right neuroforaminal narrowing with mass-effect on the exiting left L4 nerve roots. -Evaluated by neurosurgery with recommendations for conservative/nonoperative management. -Supportive care, analgesics -PT/OT recommending further rehab. Family is hopeful that the patient will be able to get further rehab on the acute inpatient rehab unit to facilitate eventual safe discharge home where she lives with her son and [id number] Impaired mobility and ADLs Parkinson's disease ? Patient follows with neurology, Dr. Lal, and movement disorder specialist,Gloria Lal, [employer], at [facility] ? Continue Sinemet ? PT/OT recommending further rehab Acute urinary tract infection ? Urine culture positive for e coli ? Continue ceftriaxone Depression ?Daughter and son-in-law expressed concern regarding worsening depression. Reports depression has been a lifelong gregorio ; however, they are concerned that this has progressed of late. State patient demonstrating decreased interestand has not been eating well. ?Psychiatry evaluated. Initiated on HS Remeron in addition to Effexor Chronic conditions 1. Hypothyroidism?levothyroxine 2. GERD?omeprazole 3. T2DM?metformin 4. DVT?Coumadin, pharmacy to dose 5. Dyslipidemia?atorvastatin 6. Hypertension?metoprolol Son (Jose David Barker) and DIL updated telephonically Discharge planning: Family hopeful for acute inpatient rehab. Patient is eager for further therapy and expresses desire to get stronger . Awaiting acute inpatient rehab evaluation. Documented By: KAYODE Lockwood 11/07/21 1 117 Signed By: <Electronically signed by KAYODE Barr> 11/07/21 1402 <Electronically signed by Enrrique Mota MD> 11/07/[address] [facility] Work Phone: Progress note Author Enrrique Mota [facility] November 08, 2021 5:13pm Note Date/Time November 08, 2021 10 :47am [facility] [address] [place] [address] Hospitalist Progress Note Signed Patient: Alton Barker MR#: [id number] : 1940 Acct:[id number] Age/Sex: 81 / F Adm Date: 2 Loc: 3T Room: [address] [place] [address] Type: ADM INOo Attending Dr: Enrrique Mota MD Copies to: ~ Date of Service: 11/08/2021 Subjective Subjective Narrative: Patient is seen and examined, sitting up in bed at time of exam. Overall doing well. No headache or dizziness. No chest pain, palpitations, shortness of breath. No abdominal pain or nausea. She has expected back pain, states well controlled at present. Awaiting insurance precertification for acute inpatient rehab. Case management following. Exam Physical Exam Vital Signs: Temp Pulse Resp BP Pulse Ox O2 Del Method 36.6 C 88 14 120/75 99 Room Air 11/08/21 08:00 11/08/21 08:00 11/08/21 08:00 11/08/21 08:00 11/08/21 08:00 11/08/21 08:00 Const General: cooperative and comfortable Nutritional Appearance: overweight Orientation: alert, awake, oriented x3 (grossly) and confused Limitations: altered mental status HEENT Head: normocephalic and atraumatic Eyes General: appearance normal, both eyes and all related structures Neck Neck: normal visual inspection Chest Chest palpation & inspection: normal inspection of the chest Resp Effort & Inspection: normal respiratory effort, able to speak in complete sentences and symmetric chest movement Auscultation: clear to auscultation bilaterally, no rhonchi and no wheezes Cardio Rate: regular rate Rhythm: regular rhythm Heart Sounds: S1 normal and S2 normal GI Inspection: normal to inspection Palpation: soft and nontender Auscultation: normal bowel sounds General: deferred Skin General: no rashes or lesions noted Neuro General: patient alert, patient awake, patient oriented x3 (grossly), moves all extremities and patient confused Cranial Nerves: CN's II-XII intact bilaterally Cognition: abnormal cognition Speech: other (Speech is slow and hypophonic) Gait: other (not assessed) Extrem General: no calf tenderness Objective Lab Results CBC & Chem 7: 11/06/21 06:57 11/06/21 06:57 Meds Allergies and Active Meds Allergies bupropion [From Wellbutrin] Allergy (Verified 11/04/21 15:50) Hallucinating hydrocodone [From Vicodin] Allergy (Verified 11/04/21 15:50) Unknown Reaction latex Allergy (Verified 11/04/21 15:50) Rash Active Meds: Active Medications Generic Name Dose Route Start Last Admin Trade Name Moises PRN Reason Stop Dose Admin Acetaminophen 1,000 mg 11/05/21 14:00 11/08/21 09:12 Acetaminophen 500 Mg Tablet PO 11/05/22 13:59 1,000 mg TID KAYLIN Administration Atorvastatin Calcium 40 mg 11/04/21 22:00 11/07/21 21:48 Atorvastatin 40 Mg Tablet PO 11/04/22 21:59 40 mg QHS KAYLIN Administration Carbidopa/Levodopa 1.5 tab 11/04/21 22:00 11/08/21 09:13 Carbidopa/Levodopa 25-100 Mg 1 Tab Tablet PO 11/04/22 21:59 1.5 tab TID KAYLIN Administration Ceftriaxone Sodium 1 gm in 50 mls @ 100 mls/hr 11/06/21 00:00 11/08/21 00:12 Rocephin IV 11/10/21 23:59 100 mls/hr Q24H KAYLIN Administration Levothyroxine Sodium 75 mcg 11/05/21 06:30 11/08/21 06:58 Levothyroxine 75 Mcg Tablet PO 11/05/22 06:29 75 mcg DAILY@0630 KAYLIN Administration Lidocaine 1 patch 11/08/21 09:00 11/08/21 09:13 Lidocaine 4% Adh..Patch TOPICAL 11/08/22 08:59 1 patch DAILY KAYLIN Administration Metformin HCl 1,000 mg 11/05/21 08:00 11/08/21 09:13 Metformin 500 Mg Tablet PO 11/05/22 07:59 1,000 mg BID.WITH.MEALS KAYLIN Administration Metoprolol Tartrate 75 mg 11/04/21 21:00 11/08/21 09:12 Metoprolol Tartrate 50 Mg Tablet PO 11/04/22 20:59 75 mg BID KAYLIN Administration Mirtazapine 7.5 mg 11/05/21 22:00 11/07/21 21:48 Mirtazapine 7.5 Mg Tablet PO 11/05/22 21:59 7.5 mg QHS KAYLIN Administration Omeprazole 20 mg 11/06/21 07:30 11/08/21 06:58 Omeprazole 20 Mg Capsule.Dr PO 11/06/22 07:29 20 mg DAILY.AC.BKFAST KAYLIN Administration Oxycodone HCl 5 mg 11/04/21 18:21 11/07/21 04:55 Oxycodone Ir 5 Mg Tablet PO 5 mg Q6HR PRN Administration pain Polyethylene Glycol 17 gm 11/07/21 14:00 11/08/21 09:13 Polyethylene Glycol 3350 17 Gm Powd.Pack PO 11/07/22 13:59 17 gm BID KAYLIN Administration Potassium Chloride 20 meq 11/06/21 09:49 11/07/21 09:59 Potassium Chloride Er 20 Meq Tab.Er.Prt PO 11/06/22 09:48 20 meq DAILY PRN Administration Hypokalemia Potassium Chloride 40 meq 11/06/21 09:49 Potassium Chloride Er 20 Meq Tab.Er.Prt PO 11/06/22 09:48 DAILY PRN Hypokalemia Senna/Docusate Sodium 2 tab 11/04/21 21:00 11/08/21 09:13 Sennosides/Docusate 8.6-50mg 1 Tab Tablet PO 11/04/22 20:59 2 tab BID KAYLIN Administration Sodium Chloride 0 ml 11/04/21 15:49 11/04/21 23:59 Sodium Chloride 0.9 % 10 Ml Syringe IV-PUSH 11/04/22 15:48 10 ml PRN PRN Administration Flush Venlafaxine HCl 75 mg 11/05/21 21:00 11/07/21 21:49 Venlafaxine Er 75 Mg Cap.Er.24h PO 11/05/22 20:59 75 mg QPM KAYLIN Administration Venlafaxine HCl 150 mg 11/06/21 09:00 11/08/21 09:12 Venlafaxine Er 150 Mg Cap.Er.24h PO 11/06/22 08:59 150 mg DAILY KAYLIN Administration Vitamin D 125 mcg 11/05/21 09:00 11/08/21 09:13 Cholecalciferol 125 Mcg (5,000 Units) Capsule PO 11/05/22 08:59 125 mcg DAILY KAYLIN Administration Warfarin Sodium 1 each 11/04/21 18:21 Warfarin - Pharmacy Dosing MISCELLANE 11/04/22 18:20 ONCE PRN ZZ.Pharmacy Consult Protocol A&P - Hospitalist Assessment/Plan (1) Back pain: (2) Compression fracture: (3) Depression: (4) Urinary tract infection: (5) Frequent falls: (6) Impaired mobility and ADLs: (7) Parkinsons disease: Plan Frequent falls L1 compression fracture Back pain - Son and DIL report fall on 10/19. Worsening mobility and back pain since fall. Previously ambulated with cane, now using walker with difficulty. Endorsing lower extremity numbness, bilateral at times, though mostly LLE. - MRI lumbar spine showing L1 compression deformity with corresponding marrow edema with edema extending into the adjacent paraspinous musculature, L4-5 circumferential disc bulge with facet hypertrophy, mild spinal canal stenosis with moderate to severe left and mild right neuroforaminal narrowing with mass-effect on the exiting left L4 nerve roots. -Evaluated by neurosurgery with recommendations for conservative/nonoperative management. -Supportive care, analgesics -PT/OT recommending further rehab. Family is hopeful that the patient will be able to get further rehab on the acute inpatient rehab unit to facilitate eventual safe discharge home where she lives with her son and [id number] Impaired mobility and ADLs Parkinson's disease ? Patient follows with neurology, Dr. Lal, and movement disorder specialist,Gloria Lal, [employer], at [facility] ? Continue Sinemet ? PT/OT recommending further rehab Acute urinary tract infection ? Urine culture positive for e coli ? Continue ceftriaxone Depression ?Daughter and son-in-law expressed concern regarding worsening depression. Reports depression has been a lifelong gregorio ; however, they are concerned that this has progressed of late. State patient demonstrating decreased interestand has not been eating well. ?Psychiatry evaluated. Initiated on HS Remeron in addition to Effexor Chronic conditions 1. Hypothyroidism?levothyroxine 2. GERD?omeprazole 3. T2DM?metformin 4. DVT?Coumadin, pharmacy to dose 5. Dyslipidemia?atorvastatin 6. Hypertension?metoprolol Son (Jose David Barker) and DIL updated telephonically Discharge planning: Family hopeful for acute inpatient rehab. Patient is eager for further therapy and expresses desire to get stronger . Awaiting acute inpatient rehab evaluation. Documented By: KAYODE Lockwood 11/08/21 1 047 Signed By: <Electronically signed by KAYODE Barr> 11/08/21 1109 <Electronically signed by Enrrique Mota MD> 11/08/21 1716 [facility] Work Phone: Progress note Author Gaye Claire [facility] November 10, 2021 4:37pm Note Date/Time November 09, 2021 1: 11pm [facility] [address] [place] [address] Hospitalist Progress Note Signed Patient: Alton Barker MR#: [id number] : 1940 Acct:[id number] Age/Sex: 81 / F Adm Date: 2 Loc: Room: 9Z1104-4 Type: ADM INOo Attending Dr: Gaye Claire MD Copies to: ~ Date of Service: 11/09/2021 Subjective Subjective Narrative: Patient seen and examined. She is up in her chair, reports back pain controlled. Had significant pain overnight she reports. Good intake. No othercomplaints/ concerns. Exam Physical Exam Vital Signs: Temp Pulse Resp BP Pulse Ox O2 Del Method 97.8 F 80 18 110/71 97 Room Air 11/09/21 04:00 11/09/21 12:00 11/09/21 12:00 11/09/21 12:00 11/09/21 12:00 11/09/21 12:00 Narrative: Alert, in chair, no distress at rest RRR no abnormal heart tones dimin without wheeze or rhonchi, RA S/NT, NABS, round no edema BLE, calves nontender Objective Lab Results CBC & Chem 7: 11/06/21 06:57 11/06/21 06:57 Meds Allergies and Active Meds Allergies bupropion [From Wellbutrin] Allergy (Verified 11/04/21 15:50) Hallucinating hydrocodone [From Vicodin] Allergy (Verified 11/04/21 15:50) Unknown Reaction latex Allergy (Verified 11/04/21 15:50) Rash Active Meds: Active Medications Generic Name Dose Route Start Last Admin Trade Name Freq PRN Reason Stop Dose Admin Acetaminophen 1,000 mg 11/05/21 14:00 11/09/21 08:48 Acetaminophen 500 Mg Tablet PO 11/05/22 13:59 1,000 mg TID KAYLIN Administration Atorvastatin Calcium 40 mg 11/04/21 22:00 11/08/21 21:47 Atorvastatin 40 Mg Tablet PO 11/04/22 21:59 40 mg QHS KAYLIN Administration Carbidopa/Levodopa 1.5 tab 11/04/21 22:00 11/09/21 08:49 Carbidopa/Levodopa 25-100 Mg 1 Tab Tablet PO 11/04/22 21:59 1.5 tab TID KAYLIN Administration Ceftriaxone Sodium 1 gm in 50 mls @ 100 mls/hr 11/06/21 00:00 11/09/21 00:44 Rocephin IV 11/10/21 23:59 100 mls/hr Q24H KAYLIN Administration Levothyroxine Sodium 75 mcg 11/05/21 06:30 11/09/21 07:03 Levothyroxine 75 Mcg Tablet PO 11/05/22 06:29 75 mcg DAILY@0630 KAYLIN Administration Lidocaine 1 patch 11/08/21 09:00 11/09/21 08:50 Lidocaine 4% Adh..Patch TOPICAL 11/08/22 08:59 1 patch DAILY KAYLIN Administration Metformin HCl 1,000 mg 11/05/21 08:00 11/09/21 08:49 Metformin 500 Mg Tablet PO 11/05/22 07:59 1,000 mg BID.WITH.MEALS KAYLIN Administration Metoprolol Tartrate 75 mg 11/04/21 21:00 11/09/21 08:49 Metoprolol Tartrate 50 Mg Tablet PO 11/04/22 20:59 75 mg BID KAYLIN Administration Mirtazapine 7.5 mg 11/05/21 22:00 11/08/21 21:47 Mirtazapine 7.5 Mg Tablet PO 11/05/22 21:59 7.5 mg QHS KAYLIN Administration Omeprazole 20 mg 11/06/21 07:30 11/09/21 07:03 Omeprazole 20 Mg Capsule.Dr PO 11/06/22 07:29 20 mg DAILY.AC.BKFAST KAYLIN Administration Oxycodone HCl 5 mg 11/04/21 18:21 11/09/21 04:19 Oxycodone Ir 5 Mg Tablet PO 5 mg Q6HR PRN Administration pain Polyethylene Glycol 17 gm 11/07/21 14:00 11/09/21 08:50 Polyethylene Glycol 3350 17 Gm Powd.Pack PO 11/07/22 13:59 17 gm BID KAYLIN Administration Potassium Chloride 20 meq 11/06/21 09:49 11/07/21 09:59 Potassium Chloride Er 20 Meq Tab.Er.Prt PO 11/06/22 09:48 20 meq DAILY PRN Administration Hypokalemia Potassium Chloride 40 meq 11/06/21 09:49 Potassium Chloride Er 20 Meq Tab.Er.Prt PO 11/06/22 09:48 DAILY PRN Hypokalemia Senna/Docusate Sodium 2 tab 11/04/21 21:00 11/09/21 08:49 Sennosides/Docusate 8.6-50mg 1 Tab Tablet PO 11/04/22 20:59 2 tab BID KAYLIN Administration Sodium Chloride 0 ml 11/04/21 15:49 11/04/21 23:59 Sodium Chloride 0.9 % 10 Ml Syringe IV-PUSH 11/04/22 15:48 10 ml PRN PRN Administration Flush Venlafaxine HCl 75 mg 11/05/21 21:00 11/08/21 21:47 Venlafaxine Er 75 Mg Cap.Er.24h PO 11/05/22 20:59 75 mg QPM KAYLIN Administration Venlafaxine HCl 150 mg 11/06/21 09:00 11/09/21 08:48 Venlafaxine Er 150 Mg Cap.Er.24h PO 11/06/22 08:59 150 mg DAILY KAYLIN Administration Vitamin D 125 mcg 11/05/21 09:00 11/09/21 08:49 Cholecalciferol 125 Mcg (5,000 Units) Capsule PO 11/05/22 08:59 125 mcg DAILY KAYLIN Administration Warfarin Sodium 1 each 11/04/21 18:21 Warfarin - Pharmacy Dosing MISCELLANE 11/04/22 18:20 ONCE PRN ZZ.Pharmacy Consult Protocol Warfarin Sodium 1 mg 11/09/21 17:00 Warfarin 1 Mg Tablet PO 11/09/21 17:01 ONCE ONE A&P - Hospitalist Assessment/Plan (1) Compression fracture: (2) Depression: (3) Urinary tract infection: (4) Frequent falls: (5) Parkinsons disease: (6) Chronic anticoagulation: Plan Frequent falls Parkinson's Disease L1 compression fracture Back pain -MRI lumbar spine - L1 compression deformity with corresponding marrow edema extending into adjacent paraspinous musculature, L4-5 circumferential disc bulgewith facet hypertrophy, mild spinal canal stenosis with moderate to severe left and mild right neuroforaminal narrowing with mass-effect on the exiting left L4 nerve roots. -Evaluated by neurosurgery with recommendations for conservative/nonoperative management. -Supportive care, analgesics -PT/OT recommending further rehab, approved and pending insurance precertification -follows with neurology, Dr. Lal, and movement disorder specialist, Gloria Lal CNP at [facility] ?Continue Sinemet UTI Ecoli ?ceftriaxone initiated 11/06, change to Cefdinir at DC for 7 day total course last dose 11/12 Depression ?Psychiatry evaluated. Remeron and Effexor initiated Chronic conditions 1. Hypothyroidism?levothyroxine 2. GERD?omeprazole 3. T2DM?metformin 4. hx DVT?Coumadin, pharmacy to dose, trend INR. INR was supratherapeutic on admit 5. Dyslipidemia?atorvastatin 6. Hypertension?metoprolol, BPs reviewed and controlled Documented By: FIGUEROA Samuels-BC 2 [id number] Signed By: <Electronically signed by ANP-BC Tonya Suh> 11/09/21 1551 <Electronically signed by Gaye Claire MD> 11/10/21 2477 [facility] Work Phone: Progress note Author Gaye Claire [facility] November 11, 2021 5:21pm Note Date/Time November 10, 2021 5: 36pm [facility] [address] [place] [address] Hospitalist Progress Note Signed Patient: Alton Barker MR#: [id number] : 1940 Acct:[id number] Age/Sex: 81 / F Adm Date: 2 Loc: Room: 1W2474-1 Type: DIS INOo Attending Dr: Gaye Claire MD Copies to: ~ Date of Service: 11/10/2021 Subjective Subjective Narrative: Patient is seen and examined. Reporting back pain, intermittently worse betweenmeds. Worked with therapy today. No other complaints or concerns. Slept well. Exam Physical Exam Vital Signs: Temp Pulse Resp BP Pulse Ox O2 Del Method 97.5 F L 92 H 20 114/71 99 Room Air 11/10/21 15:57 11/10/21 15:57 11/10/21 15:57 11/10/21 15:57 11/10/21 15:57 11/10/21 15:57 Narrative: Alert, in chair, no distress at rest RRR no abnormal heart tones dimin without wheeze or rhonchi, RA S/NT, NABS, round no edema BLE, calves nontender Objective Lab Results CBC & Chem 7: 11/06/21 06:57 11/06/21 06:57 Meds Allergies and Active Meds Allergies bupropion [From Wellbutrin] Allergy (Verified 11/04/21 15:50) Hallucinating hydrocodone [From Vicodin] Allergy (Verified 11/04/21 15:50) Unknown Reaction latex Allergy (Verified 11/04/21 15:50) Rash Active Meds: Active Medications Generic Name Dose Route Start Last Admin Trade Name Freq PRN Reason Stop Dose Admin Acetaminophen 1,000 mg 11/05/21 14:00 11/10/21 14:13 Acetaminophen 500 Mg Tablet PO 11/05/22 13:59 1,000 mg TID KAYLIN Administration Atorvastatin Calcium 40 mg 11/04/21 22:00 11/09/21 20:48 Atorvastatin 40 Mg Tablet PO 11/04/22 21:59 40 mg QHS KAYLIN Administration Carbidopa/Levodopa 1.5 tab 11/04/21 22:00 11/10/21 14:13 Carbidopa/Levodopa 25-100 Mg 1 Tab Tablet PO 11/04/22 21:59 1.5 tab TID KAYLIN Administration Ceftriaxone Sodium 1 gm in 50 mls @ 100 mls/hr 11/06/21 00:00 11/10/21 00:36 Rocephin IV 11/10/21 23:59 100 mls/hr Q24H KAYLIN Administration Levothyroxine Sodium 75 mcg 11/05/21 06:30 11/10/21 05:59 Levothyroxine 75 Mcg Tablet PO 11/05/22 06:29 75 mcg DAILY@0630 KAYLIN Administration Lidocaine 1 patch 11/08/21 09:00 11/10/21 08:30 Lidocaine 4% Adh..Patch TOPICAL 11/08/22 08:59 1 patch DAILY KAYLIN Administration Metformin HCl 1,000 mg 11/05/21 08:00 11/10/21 17:14 Metformin 500 Mg Tablet PO 11/05/22 07:59 1,000 mg BID.WITH.MEALS KAYLIN Administration Metoprolol Tartrate 75 mg 11/04/21 21:00 11/10/21 08:34 Metoprolol Tartrate 50 Mg Tablet PO 11/04/22 20:59 75 mg BID KAYLIN Administration Mirtazapine 7.5 mg 11/05/21 22:00 11/09/21 20:48 Mirtazapine 7.5 Mg Tablet PO 11/05/22 21:59 7.5 mg QHS KAYLIN Administration Omeprazole 20 mg 11/06/21 07:30 11/10/21 05:59 Omeprazole 20 Mg Capsule. PO 11/06/22 07:29 20 mg DAILY.AC.BKFAST KAYLIN Administration Oxycodone HCl 5 mg 11/04/21 18:21 11/10/21 03:03 Oxycodone Ir 5 Mg Tablet PO 5 mg Q6HR PRN Administration pain Polyethylene Glycol 17 gm 11/07/21 14:00 11/10/21 08:33 Polyethylene Glycol 3350 17 Gm Powd.Pack PO 11/07/22 13:59 17 gm BID KAYLIN Administration Potassium Chloride 20 meq 11/06/21 09:49 11/07/21 09:59 Potassium Chloride Er 20 Meq Tab.Er.Prt PO 11/06/22 09:48 20 meq DAILY PRN Administration Hypokalemia Potassium Chloride 40 meq 11/06/21 09:49 Potassium Chloride Er 20 Meq Tab.Er.Prt PO 11/06/22 09:48 DAILY PRN Hypokalemia Senna/Docusate Sodium 2 tab 11/04/21 21:00 11/10/21 08:30 Sennosides/Docusate 8.6-50mg 1 Tab Tablet PO 11/04/22 20:59 2 tab BID KAYLIN Administration Sodium Chloride 0 ml 11/04/21 15:49 11/09/21 20:51 Sodium Chloride 0.9 % 10 Ml Syringe IV-PUSH 11/04/22 15:48 10 ml PRN PRN Administration Flush Venlafaxine HCl 75 mg 11/05/21 21:00 11/09/21 20:49 Venlafaxine Er 75 Mg Cap.Er.24h PO 11/05/22 20:59 75 mg QPM KAYLIN Administration Venlafaxine HCl 150 mg 11/06/21 09:00 11/10/21 08:30 Venlafaxine Er 150 Mg Cap.Er.24h PO 11/06/22 08:59 150 mg DAILY KAYLIN Administration Vitamin D 125 mcg 11/05/21 09:00 11/10/21 08:31 Cholecalciferol 125 Mcg (5,000 Units) Capsule PO 11/05/22 08:59 125 mcg DAILY KAYLIN Administration Warfarin Sodium 1 each 11/04/21 18:21 Warfarin - Pharmacy Dosing MISCELLANE 11/04/22 18:20 ONCE PRN ZZ.Pharmacy Consult Protocol A&P - Hospitalist Assessment/Plan (1) Compression fracture: (2) Depression: (3) Urinary tract infection: (4) Frequent falls: (5) Parkinsons disease: (6) Chronic anticoagulation: Plan Frequent falls Parkinson's Disease L1 compression fracture Back pain -MRI lumbar spine - L1 compression deformity with corresponding marrow edema extending into adjacent paraspinous musculature, L4-5 circumferential disc bulgewith facet hypertrophy, mild spinal canal stenosis with moderate to severe left and mild right neuroforaminal narrowing with mass-effect on the exiting left L4 nerve roots. -Evaluated by neurosurgery with recommendations for conservative/nonoperative management. -Supportive care, analgesics -PT/OT recommending further rehab, approved and pending insurance precertification -follows with neurology, Dr. Lal, and movement disorder specialist, Gloria Lal CNP at [facility] ?Continue Sinemet UTI Ecoli ?ceftriaxone initiated 11/06, change to Cefdinir at DC for 7 day total course last dose 11/12 Depression ?Psychiatry evaluated. Remeron and Effexor initiated Chronic conditions 1. Hypothyroidism?levothyroxine 2. GERD?omeprazole 3. T2DM?metformin 4. hx DVT?Coumadin, pharmacy to dose, trend INR. INR was supratherapeutic on admit 5. Dyslipidemia?atorvastatin 6. Hypertension?metoprolol, BPs reviewed and controlled Documented By: WILFRID Samuels 2 [id number] Signed By: <Electronically signed by ANP-BC Tonya Suh> 11/10/21 1757 <Electronically signed by Gaye Claire MD> 11/11/[address] [facility] Work Phone: Reason for referral (narrative)* Outpatient Procedure (Routine) - Pending Review Specialty Diagnoses / Procedures Referred By Contact Referred To [facility] Diagnoses Recurrent episodes of unresponsiveness Procedures EPIL EEG ROUTINE ELECTROENCEPHALOGRAM REC COMA/SLEEP ONLY Gloria Perez, PANMAN.DIVERSIFIED [employer] F[employer]ER [address] [place] [address] [facility] [place] [address] Referral ID Status Reason Start Date Expiration Date Visits Requested Visits Authorized [id number] Pending Review Auto-Generat ed Referral 10/04/2021 10/04/2022 1 1 [facility] Summary Purpose Family History No Family History Records Found Relationship Condition Age at Onset Recorded Date/T denis Not Specified No pertinent family history Unknown Advance Directives No Advanced Directives Records Found Advance Directive Response Recorded Date/ Time Advance Directives No May 23 10:53am Advance Directive Response Recorded Date/ Time Advance Directives No May 23 9:53am Chief Complaint and Reason for Visit Chief Complaint DVT has needle in neck Chief Complaint slow talking/confuse d fall DVT back pain due to fall L1 compression Fx/Parkinson's disease Reason for Visit Back pain Chronic anticoagulation Compression fracture Depression Frequent falls Impaired mobility and ADLs Parkinsons disease Urinary tract infection Back pain Chronic anticoagulation Compression fracture Depression Diabetes GERD (gastroesophageal reflux disease) Hyperlipidemia Hypertension Hypothyroid Impaired mobility and ADLs Parkinsons disease Urinary tract infection Chief Complaint slow talking/confuse d fall DVT back pain due to fall L1 compression Fx/Parkinson's disease Reason for Visit Back pain Chronic anticoagulation Compression fracture Depression Frequent falls Impaired mobility and ADLs Parkinsons disease Urinary tract infection Anemia Back pain Chronic anticoagulation Compression fracture Depression Diabetes GERD (gastroesophageal reflux disease) Hyperlipidemia Hypertension Hypothyroid Impaired mobility and ADLs Parkinsons disease Urinary tract infection Chief Complaint back pain due to fal l L1 compression Fx/Parkinson's disease UTI, change in urine color, odor Reason for Visit Back pain Chronic anticoagulation Compression fracture Depression Frequent falls Impaired mobility and ADLs Parkinsons disease Urinary tract infection Anemia Back pain Chronic anticoagulation Compression fracture Depression Diabetes GERD (gastroesophageal reflux disease) Hyperlipidemia Hypertension Hypothyroid Impaired mobility and ADLs Parkinsons disease Urinary tract infection Chief Complaint M81.0 Reason for Referral Specialty Diagnoses / Procedures Referred By Daija t Referred To Contact Diagnoses Parkinson's disease (HCC) Procedures PROVIDER ORDERED FOLLOW UP OFFICE/OUTPATIENT [facility] 60-74 MINUTES Gloria Perez APRN.DIVERSIFIED [employer] [address] [place] [address] Referral ID Status Reason Start Date Expiration Date Visits Requested Visits Authorized [id number] Pending Review PCP Requested Referral 3 07/08/2023 1 1 Additional Source Comments INFORMATION SOURCE (unrecogn ized section and content) DATE CREATED AUTHOR 11/02/2017 [employer] DATE CREATED AUTHOR AUTHOR'S ORGANIZ ATION 09/09/2021 [facility] dical Specialist DATE CREATED AUTHOR AUTHOR'S ORGANIZ ATION 06/01/2022 [facility] DATE CREATED AUTHOR AUTHOR'S ORGANIZ ATION 07/23/2022 [facility] DATE CREATED AUTHOR AUTHOR'S ORGANIZ ATION 01/26/2023 [facility] dical Specialists EPIC DATE CREATED AUTHOR AUTHOR'S ORGANIZ ATION 02/14/2023 [facility] Goals (unrecognized section and content) Goals may be documented in a n alternate sectionNo InformationNo InformationNo InformationNo InformationNo InformationNo InformationNo InformationNo InformationNo InformationNo InformationNo InformationNo InformationNo InformationNo InformationNo InformationNo InformationNo InformationNo InformationNo InformationNo InformationGoals may be documented in an alternate section REASON FOR VISIT (unrecogniz ed section and content) Reason Comments Parkinson's Disease Reason Comments Appointment Patient Update Called to schedule f ollow up. Patient in hospital. Reason Comments Patient Update Reason Onset Date Comments Refill Request 04/13/2022 Reason Comments Parkinson's Disease Specialty Diagnoses / Procedures Referred By Contac t Referred To Contact Diagnoses Parkinson's disease Procedures PROVIDER ORDERED FOLLOW UP OFFICE/OUTPATIENT [facility] 60-74 MINUTES Gloria Perez, HEIDI.DIVERSIFIED [employer] F[employer]ER [address] [place] [address] Referral ID Status Reason Start Date Expiration Date Visits Requested Visits Authorized [id number] Pending Review PCP Requested Referral 3 07/08/2023 1 1 Reason Comments Medication Problem Source Comments (unrecognize d section and content) In the event this informatio n is protected by the Federal Confidentiality of Alcohol and Drug Abuse Patient Records regulations: The Federal rules restrict any use of the information to criminally investigate or prosecute any alcohol or drug abuse patient.[facility] the event this information is protected by the Federal Confidentiality of Alcohol and Drug Abuse Patient Records regulations: The Federal rules restrict any use of the information to criminally investigate or prosecute any alcohol or drug abuse patient.[facility] the event this information is protected by the Federal Confidentiality of Alcohol and Drug Abuse Patient Records regulations: The Federal rules restrict any use of the information to criminally investigate or prosecute any alcohol or drug abuse patient.[facility] the event this information is protected by the Federal Confidentiality of Alcohol and Drug Abuse Patient Records regulations: The Federal rules restrict any use of the information to criminally investigate or prosecute any alcohol or drug abuse patient.[facility] the event this information is protected by the Federal Confidentiality of Alcohol and Drug Abuse Patient Records regulations: The Federal rules restrict any use of the information to criminally investigate or prosecute any alcohol or drug abuse patient.[facility] the event this information is protected by the Federal Confidentiality of Alcohol and Drug Abuse Patient Records regulations: The Federal rules restrict any use of the information to criminally investigate or prosecute any alcohol or drug abuse patient.[facility] the event this information is protected by the Federal Confidentiality of Alcohol and Drug Abuse Patient Records regulations: The Federal rules restrict any use of the information to criminally investigate or prosecute any alcohol or drug abuse patient.[facility] the event this information is protected by the Federal Confidentiality of Alcohol and Drug Abuse Patient Records regulations: The Federal rules restrict any use of the information to criminally investigate or prosecute any alcohol or drug abuse patient.[facility] Center[facility] the event this information is protected by the Federal Confidentiality of Alcohol and Drug Abuse Patient Records regulations: The Federal rules restrict any use of the information to criminally investigate or prosecute any alcohol or drug abuse patient.[facility] Care Teams (unrecognized sec tion and content) Team Status: Active Member Role Status Dates Honey Rabago DO Primary Care Provider Active Team Status: Inactive Member Role Status Dates Honey Rabago DO Primary Care Provider, Attending Paula mock Active Team Status: Inactive Member Role Status Dates Honey Rabago DO Primary Care Provider Active Alcides Moya MD Admit Provider, Attending Provider A ctive Maggy Mehta , KORTNEY Other Provider Active Sasha Hannah , KORTNEY Other Provider Active Nadia Dutton , KORTNEY Other Provider Active Anuradha Garrett , KORTNEY Other Provider Active Karen Smith RN Other Provider Active Erika Ayon , KORTNEY Other Provider Active Familia Villatoro MD Other Provider Active Misha Ziegler MD Other Provider Active Chery Coronado APRN Other Provider Active José Miguel Tellez DO Other Provider Active George Chan MD Other Provider Active Justice De Oliveira DO Other Provider Active Enrrique Mota MD Other Provider Active Rosa Maria Odell MD Other Provider Active Tonya Suh , ANP-BC Other Provider Active Juan Wallace MD Other Provider Active Jerson Walker MD Other Provider Active Gaye Claire MD Other Provider Active Queta Mclain MD Other Provider Active Rd Blackmon MD Other Provider Active Anibal Gallagher MD Other Provider Active Damion Thapa MD Other Provider Active Faustina Barr , INFO ANALYST-C Other Provider Active Valente Lauren MD Other Provider Active Kareem Elizondo MD Other Provider Active Italia Colbert MD Other Provider Active Ronan Davidson MD Other Provider Active Shantel Nayak DO Other Provider Active Kaylie Mooney MD Other Provider Active Michael Del Rio , DO Other Provider Active Sony Canela , DO Other Provider Active Amanda Jaimes APRN Other Provider Active Lázaro Pratt , DO Other Provider Active Corona Weathers MD Other Provider Active Lee Ann Terry , KORTNEY Other Provider Active Team Status: Inactive Member Role Status Dates Honey Rabago , DO Primary Care Provider Active Marvin Peter , DO Emergency Provider Active Enrrique Mota MD Admit Provider Active Jairo Benson MD Other Provider Active Oswaldo Almonte MD Other Provider Active Gaye Claire MD Attending Provider Active Pharmaceutical Service Representative Relationship Specialty Start Date End Date Honey Rabago, DO [address] [place] [address] PCP - General 02/16/05 Pharmaceutical Service Representative Relationship Specialty Start Date End Date Honey Rabago, DO [address] [place] [address] PCP - General 02/16/05 Pharmaceutical Service Representative Relationship Specialty Start Date End Date Honey Rabago, DO [address] [place] [address] PCP - General 02/16/05 Team Status: Active Member Role Status Dates Honey Rabago , Primary Care Provider Active Alcides Moya MD Admit Provider, Attending Provider A ctive Maggy Mehta , RN Other Provider Active Sasha Hannah , RN Other Provider Active Nadia Dutton , RN Other Provider Active Anuradha Garrett , RN Other Provider Active Karen Smith , RN Other Provider Active Erika Ayon , RN Other Provider Active Familia Villatoro MD Other Provider Active Misha Ziegler MD Other Provider Active Chery Coronado APRN Other Provider Active José Miguel Tellez , DO Other Provider Active George Chan MD Other Provider Active Justice De Oliveira , DO Other Provider Active Enrrique Mota MD Other Provider Active Rosa Maria Odell MD Other Provider Active Tonya Suh , ANP-BC Other Provider Active Juan Wallace MD Other Provider Active Jerson Walker MD Other Provider Active Gaye Claire MD Other Provider Active Queta Mclain MD Other Provider Active dR Blackmon MD Other Provider Active Anibal Gallagher MD Other Provider Active Damion Thapa MD Other Provider Active Faustina Barr , INFO ANALYST-C Other Provider Active Valente Lauren MD Other Provider Active Kareem Elizondo MD Other Provider Active Italia Colbert MD Other Provider Active Ronan Davidson MD Other Provider Active Shantel Nayak , DO Other Provider Active Kaylie Mooney MD Other Provider Active Michael Del Rio , DO Other Provider Active Sony Canela , DO Other Provider Active Amanda Jaimes APRN Other Provider Active Lázaro Pratt , DO Other Provider Active Corona Weathers MD Other Provider Active Lee Ann Terry RN Other Provider Active Team Status: Inactive Member Role Status Dates Honey Rabago , DO Primary Care Provider Active Sumanth Lowe , DO Emergency Provider Active Team Status: Inactive Member Role Status Dates Holger Dorado , DO Emergency Provider Active Honey Rabago , DO Primary Care Provider Active Team Status: Active Member Role Status Dates Honey Rabago , DO Primary Care Provider, Attending Paula mock Active Pharmaceutical Service Representative Relationship Specialty Start Date End Date Honey Rabago, DO [address] [place] [address] PCP - General 02/16/05 Pharmaceutical Service Representative Relationship Specialty Start Date End Date Honey Rabago, DO [address] [place] [address] PCP - General 02/16/05 Pharmaceutical Service Representative Relationship Specialty Start Date End Date Honey Rabago, DO [address] [place] [address] PCP - General 02/16/05 Pharmaceutical Service Representative Relationship Specialty Start Date End Date Honey Rabago, DO [address] [place] [address] PCP - General 02/16/05 Pharmaceutical Service Representative Relationship Specialty Start Date End Date Honey Rabago DO [address] [place] [address] PCP - General 02/16/05 Pharmaceutical Service Representative Relationship Specialty Start Date End Date Honey Rabago DO [address] [place] [address] PCP - General 02/16/05 FOR RECORDS PERTAINING TO PATIENTS WHO ARE OR HAVE BEEN ENROLLED IN A CHEMICAL DEPENDENCY/SUBSTANCEABUSE PROGRAM, SOME INFORMATION MAY BE OMITTED. This clinical summary was aggregated from multiple sources. Caution should be exercised in using it in the provision of clinical care. This summary normalizes information from multiple sources, and as a consequence, information in this document may materially change the coding, format and clinical context of patient data. In addition, data may be omitted in some cases. CLINICAL DECISIONS SHOULD BE BASED ON THE PRIMARY CLINICAL RECORDS. [facility] [employer] [facility]. provides no warranty or guarantee of the accuracy or completeness of information in this document.
[2023-03-21 15:36] LABS: Alanine Aminotransferase 22 U/L (14-59); Albumin Globulin Ratio 0.7; Albumin Level 2.7 g/dL (3.4-5.0); Alkaline Phosphatase 116 U/L (46-116); Anion Gap 8.7; Aspartate Amino Transferase 19 U/L (15-37); BUN Creatinine Ratio 22.1; Bilirubin Total 0.7 mg/dL (0.2-1.0); Calcium 8.8 mg/dL (8.5-10.1); Carbon Dioxide 30.2 mmol/L (21.0-32.0); Chloride 103 mmol/L (98-107); Estimated GFR (African America >60 (>=60); Estimated GFR (Non-African Ame >60 (>=60); Globulin 3.9 g/dL; Glucose 140 mg/dL (74-106); Potassium 3.9 mmol/L (3.5-5.1); Sodium 138 mmol/L (136-145); Total Protein 6.6 g/dL (6.4-8.2)
== END 2023-03-21 03:17 | disposition home or self-care (01) ==
LOC: LAB 03:16
PROVIDERS: PCP Internal Medicine; Visit Provider Internal Medicine
DX: E11.8 Type 2 diabetes mellitus with unspecified complications (principal); E03.9 Hypothyroidism, unspecified; E53.8 Deficiency of other specified B group vitamins; Z79.01 Long term (current) use of anticoagulants
CPT/HCPCS: 36415; 80053

== ENCOUNTER 2023-04-01 01:32 | Outpatient (REF) | payer MEDICARE, SELFPAY ==
--- OUTSIDE RECORDS SUMMARY | 2023-04-01 01:40 | XMS_ITS | CCD ---
Author Name Unknown Address [address] [place] [address] Organization [facility] Care Team Providers Care Green Marketing Analyst Name Role Phone Honey Rabago Primary Care Provider [phone] Honey Rabago Attending Provider Anu Alva Unavailable Honey Rabago DO Primary Care Provider Honey Rabago DO Primary Care Provider Oswaldo Almonte Unavailable DO Honey Rabago Primary Care Provider DO Sumanth Lowe Emergency Provider DO Holger Dorado Emergency Provider DO Honey Rabago Attending Provider [phone] DO Marvin Peter Emergency Provider MD Enrrique Mota Admit Provider [phone] MD Jairo Benson Other Provider [phone] MD Oswaldo Almonte Other Provider MD [...] Other Provider MD Damion Thapa Other Provider YEN Barr-C Faustina Quiroga Other Provider MD Valente Lauren Other Provider MD Kareem Elizondo Other Provider MD Italia Colbert Other Provider MD Ronan Davidson Other Provider DO Shantel Nayak Other Provider Al MD Kaylie Ly Other Provider DO Michael Del Rio Other Provider DO Sony Canela Other Provider HEIDI Jaimes Other Provider DO Lázaro Pratt Other Provider [phone] MD Corona Weathers Other Provider KORTNEY Terry Other Provider Unavailable DO Honey Rabago Primary Care Provider DO Marvin Peter Emergency Provider MD Enrrique Mota Admit Provider MD Jairo Benson Other Provider [phone] MD Oswaldo Almonte Other Provider MD Gaye Claire Attending Provider [phone] MD Alcides Moya Admit Provider MD Alcides Moya Attending Provider KORTNEY Mehta Other Provider Unavailable KORTNEY Hannah Other Provider Unavailable KORTNEY Dutton Other Provider Unavailable KORTNEY Garrett Other Provider Unavailable KORTNEY Smith Other Provider Unavailable KORTNEY Ayon Other Provider Unavailable MD Familia Villatoro Other Provider MD Misha Ziegler Other Provider Dials, SCHOOL OFFICE MANAGER Chery M Other Provider DO José Miguel Tellez Other Provider MD George Chan Other Provider DO Justice De Oliveira Other Provider MD Enrrique Mota Other Provider [phone] MD Rosa Maria Odell Other Provider Angeli ANP-BC Tonya Other Provider MD Juan Wallace Other Provider [phone] MD Jerson Walker Other Provider MD Gaye Claire Other Provider MD Queta Mclain Other Provider MD Rd Blackmon Other Provider MD Anibal Gallagher Other Provider MD Damion Thapa Other Provider KAYODE Barr Other Provider MD Valente Lauren Other Provider MD Kareem Elizondo Other Provider MD Italia Colbert Other Provider MD Ronan Davidson Other Provider DO Shantel Nayak Other Provider MD Kaylie Guthrie Other Provider DO Michael Del Rio Other Provider [phone] DO Sony Canela Other Provider HEIDI Jaimes Other Provider DO Lázaro Pratt Other Provider MD Corona Weathers Other Provider KORTNEY Terry Other Provider Unavailable DO Honey Rabago Attending Provider [phone] Honey Rabago DO Primary Care Provider DO Honey Rabago Primary Care Provider DO Honey Rabago Attending Provider Honey Rabago Attending Unavailable Honey Rabago Admitting Unavailable Honey Rabago Primary Care Unavailable Honey Rabago Primary Care Unavailable Jairo Bensno Consulting Unavailable Gaye Claire Attending Unavailable Enrrique Mota Admitting Unavailable Oswaldo Almonte Consulting Unavailable Alcides Moya Admitting Unavailable Alcides Moya Attending Unavailable Honey Rabago Primary Care Unavailable Maggy Mehta Consulting Unavailable Sasha Hannah Consulting Unavailable Nadia Dutton Consulting Unavailable Anuradha Garrett Consulting Unavailable Karen Smith Consulting Unavailable Erika Ayon Consulting Unavailable MassFamilia cole Consulting Unavailable Toney, Misha K Consulting Unavailable Dialchyna, Chery M Consulting Unavailable José Miguel Tellez Consulting Unavailable Rocio, George Consulting Unavailable Justice De Oliveira Consulting Unavailhardik Lawrenceescu, Enrrique Consulting Unavailable Semayelenae, Rosa Maria Consulting Unavailable Tonya Suh Consulting Unavailable Juan Wallace Consulting Unavailable Jerson Walker Consulting Unavailable Gaye Claire Consulting Unavailable Queta Mclain Consulting Unavailable Rd Blackmon Consulting Unavailable Anibal Gallagher Consulting Unavailable Damion Thapa Consulting Unavailable Faustina Barr Consulting Unavailable DoValente colindres Consulting Unavailab Kareem Estrella Consulting Unavailable Filemon, Italia Consulting Unavailable Lety, Ronan Consulting Unavailable Shantel Nayak Consulting Unavailable Frank Mooney, Kaylie Consulting Unavailab Michael Hearn Consulting Unavailable MiniaciSony Consulting Unavailable Obika, Amanda Consulting Unavailable Lázaro Pratt Consulting Unavailable DaromarCorona [...] VASCHAK, DR MÉNDEZ Admitting Unavailable VASCHAK, DR MÉNDZE Attending Unavailable VASCHAK, DR MÉNDEZ Consulting Unavailable [...] Admitting Unavailable VASCHAK, DR MÉNDEZ Consulting Unavailable HONEY RABAGO Primary Care Unavailab GLORIA Villeda Referring Unavailable GLORIA PEREZ Attending Unavailable HONEY RABAGO Primary Care Unavailab GLORIA Villeda Attending Unavailable HONEY RABAGO Attending Unavailable HONEY RABAGO Referring Unavailable MAC VILLASENOR Referring Unavailable URBANO BENNETT Attending Unavailable Allergies Allergy Classification Reported Allergen(s) Allergy Type Date of Onset Reaction(s) Facility Aminoketones (1 source) buPROPion Drug Allergy 08-01-19 Hallucinating [facility] Latex (1 source) Latex Substance Allergy 08-01-19 Rash [facility] Opioid Agonists (1 source) HYDROcodone Drug Allergy 08-01-19 Unknown Reaction [facility] (20 sources) Acetaminophen / HYDROcodone; Translations: [Vicodin] Drug Allergy Unknown [facility] (20 sources) buPROPion; Translations: [BUPROPION] Drug Allergy 01-19-20 Mental Status Change [facility] Work Phone: (20 sources) Latex Propensity to adverse reactions 11-05-19 Unknown, Rash [facility] (10 sources) Acetaminophen / HYDROcodone; Translations: [HYDROCODONE-ACET AMINOPHEN] Drug Allergy 04-13-19 Mental Status Change [facility] (10 sources) Adhesive Tape; Translations: [ADHESIVE TAPE (ROSINS)] Allergy to substance 01-13-20 [facility] Work Phone: (10 sources) Latex; Translations: [LATEX, NATURAL RUBBER] Drug Allergy 04-13-19 [facility] (10 sources) rosuvastatin; Translations: [ROSUVASTATIN CALCIUM] Drug Allergy 01-13-20 Unknown [facility] Work Phone: (6 sources) HYDROcodone; Translations: [hydrocodone] Drug Allergy 11-05-19 22 Unknown Reaction [facility] (1 source) buPROPion Drug Allergy 11-05-19 [facility] (1 source) Latex Drug allergy (disorder) 11-05-19 [facility] Repository (1 source) natural latex rubber Drug allergy (disorder) [facility] Medications Current Medications Medication Drug Class(es) Dates [...] Discontinued 1000 MG PO Three times daily November 09, 2021 11:00pm November 11, 2021 [...] 01/18/2023: Pt takes 2 tabs daily per [facility] med list 0 Active take 1 tablet by rc th every six hours as needed Acetaminophen 500 MG 1 tablet as needed Orally every 6 hrs Active Comment on above: Take 500 mg by mouth every 8 hours as needed. 01/18/2023: Pt takes 2 tabs daily per [facility] med list Aspir-81 (16 sources) Aspir-81 Active [...] once daily. TAKE 1 TABLET BY RC ONCE DAILY FOR 90 DAYS cholecalciferol 0.125 [...] 3:32pm Start: 11-04-2021 take 1 tablet by [facility] once daily in the morning Cholecalciferol (Vitamin D3) (Vitamin D3) 125 mcg (5,000 unit) Tablet Active 125 MCG PO Every morning November 04, 2021 12:00am cholecalciferol (VITAMIN D3) 5,000 unit tab Take by mouth once daily. 0 Active take 1 capsule by [facility] once daily Cholecalciferol 125 MCG (5000 UT) [...] 5 MG PO Every 6 hours 10 7 November 24, 2021 Start: 11-10-2021 take 5 [...] 5 MG PO Three times daily 7 3 October 19, 2021 November 04, 2021 5:03pm polyethylene glycol [id number] mg powder for oral solution (15 sources) [...] Vitamin C Start: 02-22-2017 End: 07-10-2017 Vit Z-N-Edgfuz-Zinc-Lute in (Preservision Lutein) 226 mg-200 unit -5 mg-0.8 mg Capsule Discontinued 1 TAB PO As Directed February 22, 2017 12:00am July 10, 2017 5:45pm take 2 capsules by m outh every twenty-four hours PreserVision/Lutein - 2 capsules [...] oral capsule (5 sources) Cephalosporin Antibacterial Start: 2 End: 2 take 300 mg by mouth twice daily Cefdinir Discontinued 300 MG PO Twice daily 4 November 10, 2021 11:00pm November 25, 2021 3:31pm Start: 11-11-2021 take 300 mg by mouth twice reymundo ly Cefdinir Active 300 MG PO Twice daily 4 November 11, 2021 12:00am Start: 11-11-2021 take 300 mg by mouth twice reymundo ly Cefdinir Active 300 MG PO Twice daily 4 2 November 11, 2021 12:00am cephalexin 500 mg [...] ea. docusate sodium 50 mg / sennosides, [facility] 8.6 mg oral tablet (5 sources) Start: 11-10-2021 End: 11-25-2021 take 2 tablets by mouth twice daily Sennosides-Docusate Sodium (Stool Softener-Stimulant Laxat) 8.6-50 mg Tablet Discontinued 2 TAB PO Twice daily 0 November 09, 2021 11:00pm November 25, 2021 3:31pm Start: 11-10-2021 take 2 tablets by mo [facility] twice daily Sennosides-Docusate Sodium (Stool Softener-Stimulant Laxat) 8.6-50 mg Tablet Active 2 TAB PO Twice daily 0 November 10, 2021 12:00am Start: 11-10-2021 take 2 tablets by mo ut twice daily Sennosides-Docusate Sodium (Stool Softener-Stimulant Laxat) [...] Comment on above: [facility] gabapentin 300 mg oral capsule (7 sources) Anti-epileptic Agent Start: 01-26-2022 End: 01-20-2023 take 1 capsule by mouth once daily at bedtime gabapentin (NEURONTIN) 300 mg capsule Take 300 mg by mouth daily at bedtime. 0 01/26/2022 01/20/2023 Discontinued (Course of therapy completed) take 1 capsule by mo [facility] every twenty-four hours Gabapentin 300 MG [...] MG PO Twice daily with meals 120 November 23, 2021 11:00pm take 1 tablet by rc th every twelve hours metFORMIN HCl 500 MG 1 tablet with a meal Orally Twice a day Active take 2 tablets by mo uth every twelve hours metFORMIN HCl 500 MG [...] 0 Active take 2 tablets by mo [facility] every twelve hours Metoprolol Tartrate 37.5 MG [...] tablet (20 sources) Cholinergic Muscarinic Antagonist Start: 7 End: take 1 tablet by mouth once [...] daily. Take 75 mg by mouth. Vit C,U-Ea-Lhjbe-Lutei n-Zeaxan (Preservision Areds-2) 438-641-48-1 eq-tfqy-sq-mg Capsule (6 sources) Start: 01-18-2017 End: 07-10-2017 take 1 tablet by mouth once daily at bedtime Vit C,M-Vs-Kcmfh-Lutein-Ze axan (Preservision Areds-2) 281-205-78-1 rj-vbjh-bk-mg Capsule Discontinued 1 TAB PO every day in the morning and at bedtime January 18, 2017 7:43am July 10, 2017 6:45pm Start: 01-18-2017 End: 07-10-2017 take 1 tablet by mouth once daily at bedtime Vit C,E-Pg-Cukwr-Lutein-Zeaxan (Preservision Areds-2) 495-630-30-1 wz-qnyy-xt-mg Capsule Discontinued 1 TAB PO every day in the morning and at bedtime January 18, 2017 12:00am July 10, 2017 5:45pm Start: 01-18-2017 End: 07-10-2017 take 1 tablet by mouth once daily at bedtime Vit C,I-Zz-Okodr-Lutein-Zeaxan (Preservision Areds-2) 316-103-90-1 mk-ekyw-qd-mg Capsule Discontinued 1 TAB PO every day in the morning and at bedtime January 18, 2017 1:00am July 10, 2017 6:45pm Vit C,V-Jm-Aizsh-Lutein-Zeax an (Preservision Areds-2) 250-90-40-1 mg Capsule (5 sources) Start: 11-04-2021 End: 11-25-2021 Vit C,F-Dw-Ulhvq-Lutein-Zeax an (Preservision Areds-2) 250-90-40-1 mg Capsule Discontinued 1 TAB PO Twice daily November 03, 2021 11:00pm November 25, 2021 3:32pm Start: 11-04-2021 End: 11-25-2021 Vit C,Y-Nx-Omruu-Lutein-Zeax an (Preservision Areds-2) 250-90-40-1 mg Capsule Discontinued 1 TAB PO Twice daily November 04, 2021 12:00am November 25, 2021 4:32pm Start: 11-04-2021 Vit C,E-Zn-Avionics Manager kh-Oaefrz-Twnlwe (Preservision Areds-2) 250-90-40-1 mg Capsule Active 1 [...] once daily. Take 2 tablets by mo uth once daily. warfarin sodium 4 mg oral [...] Fri, Sat, Sun 0.5 tab daily on Th Comment on above: 1 tablet once daily. [...] sources) Long-term current use of anticoagulant; Translations: [shelter (current) use of anticoagulants] 11-09-2021 Episodic Other [...] Resolved: 12-01-2021 Episodic Other aftercare (13 sources) shelter (current) use of anticoagulants; Translations: [Long-term (current) [...] Test Name Value Interpretation Reference Range Facility XR CHEST 2 VIEWSon XR CHEST 2 VIEWS XR CHEST 2 VIEWS : 03/28/2023 3:04 PM CLINICAL HISTORY: SOB, crackles on bases. COMPARISON: None available. TECHNIQUE: ROUTINE FINDINGS: There is coarsening of the interstitium. No consolidating pneumonia, pleural effusion or pneumothorax is seen. In the left upper lobe there is a 12 mm opacity visualized. Increased AP diameter of the chest is seen. The cardiac silhouette is within normal limits. Atherosclerotic calcifications are seen in the thoracic aorta. A compression fracture is visualized in the spine about the T12 level. There is greater than 50% loss of height. IMPRESSION: FINDINGS MAY REFLECT BRONCHIOLITIS OR COPD. SINCE NO PRIOR STUDY IS AVAILABLE FOR COMPARISON CHRONIC INTERSTITIAL LUNG DISEASE IS A POSSIBILITY. A 12 MM OPACITY IS SEEN IN THE LEFT UPPER LOBE. Recommendation is comparison to be made if patient hasn't obtain prior outside studies. If no prior consider CT of the chest. A compression fracture is also seen in the lower thoracic spine. ELECTRONICALLY SIGNED BY: Delgado Moya, DO Normal Not Available Bebe 02-11-2023 [facility] Telephone (WALTERMSMicaela) -- ALTON BARKER ([id number]) 1940 F Date Time Provider Department 02/11/23 GLORIA PEREZ During your visit today, we recorded the following information about you: Mary Anne Beatty 02/11/2023 1:54 PM Signed [id number] [place] [address] - [address] [id number] carbidopa-levodopa (SINEMET 25-100) 25-100 mg per tablet Patient son called in today in regards to medication and wanting to switch pharmacy, they were told the best way to do this would be to request a new prescription. They would like it sent to [facility] Thank you! Anu Hillman RN 02/11/2023 2:59 [...] Date Reviewed: 01/20/2023 Reviewed by: Gloria Perez APRN.WALL CRANE OPERATOR - Fully Assessed Reason for Visit: Medication [...] 01/18/2023: Pt takes 2 tabs daily per [facility] med list - MEDICATION, NON-DATABASE 750 mg two [...] Of Date 02/11/2023 Noted Resolved OSTEOARTHROS KNEE [[id number]] 06/29/2012 Parkinson's disease without dyskinesia, with fl*03/02/2018 Obesity, Class I, BMI 30-34.9 [E66.9] 07/08/2022 Depression with anxiety [F41.8] 01/20/2023 Encounter Status:Closed by MARY ANNE BEATTY on 02/11/23 [facility] 01-20-2023 CNOV Office Visit (NRMDN) -- ALTON BARKER ([id number]) 1940 F Date Time Provider Department 01/20/23 3:00 PM CHRISGLORIA During your visit today, we recorded the following information about you: Height 1.676 m ChrisGloria APRN.[facility] 01/24/2023 12:36 PM Signed [facility] - FOLLOW UP EVALUATION Honey Rabago DO [address] [facility] [id number] Dear Honey Rabago DO: I had the [...] Change halluc (more content not included)... Normal [facility] CULTURE URINEon 07-16-2022 CULTURE URINE Isolate [...] F Trimethoprim/Sulfamethoxaz ole <=20 S F Normal [facility] Comment on above: Performed By: #### U RCX #### [facility] [address] [place] [address] Dr. Joyce Strauss UA (CLEAN/CATCH) MATERIALS COORDINATOR/MICRO I F IND.on 2022 Bilirubin Ql (U) Negative Normal NEGATIVE [facility] Comment on above: Performed By: #### U MICRO, UACSIND #### [facility] [address] [place] [address] Dr. Joyce Strauss Clarity (U) CLEAR Normal CLEAR [facility] Comment on above: Performed By: #### U MICRO, UACSIND #### [facility] [address] [place] [address] Dr. Joyce Strauss Color (U) LT. YELLOW Normal YELLOW [facility] Comment on above: Performed By: #### U MICRO, UACSIND #### [facility] [address] [place] [address] Dr. Joyce Strauss Glucose Ql (U) Negative Normal NEGATIVE [facility] Comment on above: Performed By: #### U MICRO, UACSIND #### [facility] [address] [address] [address] Joyce Strauss Hemoglobin Ql (U) Negative Normal NEGATIVE [facility] Comment on above: Performed By: #### U MICRO, UACSIND #### [facility] [address] [address] [address] Joyce Strauss Ketones Ql (U) Negative Normal NEGATIVE [facility] Comment on above: Performed By: #### U MICRO, UACSIND #### [facility] [address] [address] [address] Joyce Strauss LEUKOCYTES LARGE Abnormal NEGATIVE [facility] Comment on above: Performed By: #### U MICRO, UACSIND #### [facility] [address] [address] [address] Joyce Strauss Nitrite Ql (U) Positive Abnormal NEGATIVE [facility] Comment on above: Performed By: #### U MICRO, UACSIND #### [facility] [address] [address] [address] Joyce Strauss pH (U) 5.5 [pH] Normal 5-9 [facility] Comment on above: Performed By: #### U MICRO, UACSIND #### [facility] [address] [address] [address] Joyce Strauss SPEC GRAVITY 1.010 Normal 1.005-<=1. 025 [facility] Comment on above: Performed By: #### U MICRO, UACSIND #### [facility] [address] [address] [address] Joyce Strauss UA PROTEIN TRACE Normal NEGATIVE/ TRACE [facility] Comment on above: Performed By: #### U MICRO, UACSIND #### [facility] [address] [address] [address] Joyce Strauss UR MICRO IND INDICATED Normal [facility] Comment on above: Performed By: #### U MICRO, UACSIND #### [facility] [address] [place] [address] Dr. Joyce Strauss Urobilinogen Qn (U) 0.2 {Cam'U}/dL Normal 0.2 - 1. 0 [facility] Comment on above: Performed By: #### U MICRO, UACSIND #### [facility] [address] [address] [address] Joyce Strauss URINE MICROSCOPIC ONLYon BACTERIA LARGE Abnormal NONE SEEN [facility] Comment on above: Performed By: #### U MICRO, UACSIND #### [facility] [address] [place] [address] Dr. Joyce Strauss Bacteria identified Cx Nom (U) INDICATED Normal [facility] Comment on above: Performed By: #### U MICRO, UACSIND #### [facility] [address] [place] [address] Dr. Joyce Strauss CA OX CRYSTALS RARE Normal [facility] Comment on above: Performed By: #### U MICRO, UACSIND #### [facility] [address] [place] [address] Dr. Joyce Strauss CAST NONE SEEN Normal NONE SEEN [facility] Comment on above: Performed By: #### U MICRO, UACSIND #### [facility] [address] [place] [address] Dr. Joyce Strauss Crystals LM Nom (Urine sed) SEEN Abnormal NONE SEEN [facility] Comment on above: Performed By: #### U MICRO, UACSIND #### [facility] [address] [place] [address] Dr. Joyce Strauss Epithelial cells LM Ql (Urine sed) FEW Abnormal NONE SEEN /RARE [facility] Comment on above: Performed By: #### U MICRO, UACSIND #### [facility] [address] [place] [address] Dr. Joyce Strauss MUCOUS NONE SEEN Normal NONE SEEN [facility] Comment on above: Performed By: #### U MICRO, UACSIND #### [facility] [address] [place] [address] Dr. Joyce Strauss RBC NONE SEEN Abnormal 0-2 [facility] Comment on above: Performed By: #### U MICRO, UACSIND #### [facility] [address] [place] [address] Dr. Joyce Strauss WBC (U) [#/Vol] /uL Abnormal NONE SEEN [facility] Comment on above: Performed By: #### U MICRO, UACSIND #### [facility] [address] [address] [address] Joyce Strauss CNOVon 07-08-2022 CNOV Office Visit (NRMDN) -- ALTON BARKER Jakob ([id number]) 1940 F Date Time Provider Department 07/08/22 3:00 PM GLORIA PEREZ NRN During your visit today, we recorded the following information about you: Weight Height 85.1 kg 1.676 m Gloria Perez APRN.WALL CRANE OPERATOR 07/11/2022 5:23 PM Signed [facility] - FOLLOW UP EVALUATION Honey Rabago DO, DO [address] [facility] [address] Dear Honey Rabago DO, DO: I had [...] She likes the staff. The director and patient relations director have to chip into cook since the executive pastry chef cook and this has been good from [...] lot online or on TV, $15/month on [email or web address] tickets (in past) Palliative Concerns: Caregiver burden: In assisted living so now less stress on son and daughter in law Spiritual concerns: No Advanced directives on file: No Palliative services: No Therapy and Exercise: Last PT Date: Current June 2022 Last OT Date: Last ST Date: Current June 2022 Exercises Regula (more content not included)... Normal [facility] CULTURE URINEon 06-03-2022 CULTURE URINE Isolate [...] Trimethoprim/Sulfamethoxaz ole <=20 S F Normal [facility] Comment on above: Performed By: #### U RCX #### [facility] [address] [address] [address] Joyce Strauss UA RANDOMon 06-01-2022 Bilirubin Ql (U) Negative Normal NEGATIVE [facility] Comment on above: Performed By: #### U A #### [facility] [address] [place] [address] Dr. Joyce Strauss Clarity (U) CLOUDY Abnormal CLEAR [facility] Comment on above: Performed By: #### U A #### [facility] [address] [place] [address] Dr. Joyce Strauss Color (U) YELLOW Normal YELLOW [facility] Comment on above: Performed By: #### U A #### [facility] [address] [place] [address] Dr. Joyce Strauss Glucose Ql (U) Negative Normal NEGATIVE [facility] Comment on above: Performed By: #### U A #### [facility] [address] [place] [address] Dr. Joyce Strauss Hemoglobin Ql (U) MODERATE Abnormal NEGATIVE [facility] Comment on above: Performed By: #### U A #### [facility] [address] [place] [address] Dr. Joyce Strauss Ketones Ql (U) Negative Normal NEGATIVE [facility] Comment on above: Performed By: #### U A #### [facility] [address] [place] [address] Dr. Joyce Strauss LEUKOCYTES LARGE Abnormal NEGATIVE [facility] Comment on above: Performed By: #### U A #### [facility] [address] [place] [address] Dr. Joyce Strauss Nitrite Ql (U) Positive Abnormal NEGATIVE [facility] Comment on above: Performed By: #### U A #### [facility] [address] [place] [address] Dr. Joyce Strauss pH (U) 6.0 [pH] Normal 5-9 [facility] Comment on above: Performed By: #### U A #### [facility] [address] [place] [address] Dr. Joyce Strauss SPEC GRAVITY 1.010 Normal 1.005-<=1. 025 [facility] Comment on above: Performed By: #### U A #### [facility] [address] [place] [address] Dr. Joyce Strauss UA PROTEIN 100 mg/dl Abnormal NEGATIVE/ TRACE [facility] Comment on above: Performed By: #### U A #### [facility] [address] [address] [address] Joyce Strauss Urobilinogen Qn (U) 1.0 {Cam'U}/dL Normal 0.2 - 1. 0 [facility] Comment on above: Performed By: #### U A #### [facility] [address] [address] [address] Joyce Spence 02-15-2022 CNPN Telephone (NRMDN) -- ALTON BARKER ([id number]) 1940 F Date Time Provider Department 02/15/22 GLORIA PEREZ During your visit today, we recorded the following information about you: Gloria Perez APRN.WALL CRANE OPERATOR 02/15/2022 1:56 PM Signed I tried callingGina, the social science teacher in her primary care provider's office. I left a message requesting a call back. Gloria Perez APRN-WALL CRANE OPERATOR Allergies As of Date: 02/15/2022 Noted Allergy [...] capsule Take 75 mg by mouth. - [email or web address] VIVIAN 2 SENSOR kit apply 1 SENSOR [...] Of Date 02/15/2022 Noted Resolved OSTEOARTHROS KNEE [[id number]] 06/29/2012 Parkinson's disease (HCC) [G20] 03/02/2018 Prescriptions [...] Status:Closed by GLORIA PEREZ on 02/15/22 Normal [facility] Urine culture routineOrdered By: Honey Rabago on 01-01-2022 Bacteria identified Cx Nom (U) Escherichia coli [facility] Automated erythrocytes count in urine sediment (number/area)Ordered By: Honey Rabago on 12-30-2021 RBC Auto (Urine sed) [#/Area] 3-4 [HPF] 0-4 [facility] Automated leukocytes count i n urine sediment (number/area)Ordered By: Honey Rabago on 12-30-2021 WBC Auto (Urine sed) [#/Area] 50-100 [HPF] 0-4 [facility] Automated urine color determ inationOrdered By: Honey Rabago on 12-30-2021 Color (U) Yellow Normal Yellow [facility] Comment on above: Order Comment: Name Collection Type:: Clean-Voided Midstream Performed By: #### G LULS #### Point of Care testing , Bilirubin Test strip Ql (U)O rdered By: Honey Rabago on 12-30-2021 Bilirubin Ql (U) Negative Negative [facility] Dipstick and Microscopicon 1 Appearance (U) Cloudy Critically abnormal Clear [facility] Comment on above: Order Comment: Name Collection Type:: Clean-Voided Midstream Performed By: #### G LULS #### Point of Care testing , Bacteria,Urine 1+ High None Seen [facility] Comment on above: Order Comment: Name Collection Type:: Clean-Voided Midstream Performed By: #### G LULS #### Point of Care testing , Bilirubin,Urine Negative Normal Negative [facility] Comment on above: Order Comment: Name Collection Type:: Clean-Voided Midstream Performed By: #### G LULS #### Point of Care testing , Glucose Ql (U) Normal Normal Normal [facility] Comment on above: Order Comment: Name Collection Type:: Clean-Voided Midstream Performed By: #### G LULS #### Point of Care testing , Hyaline Casts,Urine 0-8 Normal 0-8 [facility] Comment on above: Order Comment: Name Collection Type:: Clean-Voided Midstream Result Comment: PERF ORMED BY: [facility] [address] [place] [address] PATHOLOGIST HOME THEATRE TECHNICIAN FLIP GERMAN M.D. Performed By: #### G LULS #### Point of Care testing , Ketones Ql (U) Negative Normal Negative [facility] Comment on above: Order Comment: Name Collection Type:: Clean-Voided Midstream Performed By: #### G LULS #### Point of Care testing , Leukocyte esterase Test strip Ql (U) 3+ High Negative [facility] Comment on above: Order Comment: Name Collection Type:: Clean-Voided Midstream Performed By: #### G LULS #### Point of Care testing , Nitrite,Urine Positive High Negative [facility] Comment on above: Order Comment: Name Collection Type:: Clean-Voided Midstream Performed By: #### G LULS #### Point of Care testing , Occult Blood,Urine Negative Normal Negative [facility] Comment on above: Order Comment: Name Collection Type:: Clean-Voided Midstream Result Comment: PERF ORMED BY: [facility] [address] [place] [address] PATHOLOGIST HOME THEATRE TECHNICIAN FLIP GERMAN M.D. Performed By: #### G LULS #### Point of Care testing , Othe Crystals,Urine None Seen Normal [facility] Comment on above: Order Comment: Name Collection Type:: Clean-Voided Midstream Performed By: #### G LULS #### Point of Care testing , Protein,Urine Trace High Negative [facility] Comment on above: Order Comment: Name Collection Type:: Clean-Voided Midstream Performed By: #### G LULS #### Point of Care testing , RBC,Urine 3-4 Normal 0-4 [facility] Comment on above: Order Comment: Name Collection Type:: Clean-Voided Midstream Performed By: #### G LULS #### Point of Care testing , Specificy [place],Urine 1.017 Normal 1.001-1.03 0 [facility] Comment on above: Order Comment: Name Collection Type:: Clean-Voided Midstream Performed By: #### G LULS #### Point of Care testing , Squamous Epithelial Cell,Urine 1-2 Normal 0-2 [facility] Comment on above: Order Comment: Name Collection Type:: Clean-Voided Midstream Performed By: #### G LULS #### Point of Care testing , Urobilinogen,Urine Normal Normal Normal [facility] Comment on above: Order Comment: Name Collection Type:: Clean-Voided Midstream Performed By: #### G LULS #### Point of Care testing , WBC,Urine 50-100 High 0-4 [facility] Comment on above: Order Comment: Name Collection Type:: Clean-Voided Midstream Performed By: #### G LULS #### Point of Care testing , Ketones Auto test strip (U) [Mass/Vol]Ordered By: Honey Rabago on 12-30-2021 Ketones (U) [Mass/Vol] Negative Negative [facility] Laboratory - UrinalysisOrder ed By: Honey Rabago on 12-30-2021 Hyaline casts LM Ql (Urine sed) 0-8 [LPF] 0-8 [facility] Nitrite Test strip Ql (U)Ord ered By: Honey Rabago on 12-30-2021 Nitrite Ql (U) Positive Negative [facility] Protein Auto test strip (U) [Mass/Vol]Ordered By: Honey Rabago on 12-30-2021 Protein (U) [Mass/Vol] Trace mg/dL Negative [facility] Specific gravity Auto test s trip (U) [Rel density]Ordered By: Honey Rabago on 12-30-2021 Specific gravity (U) [Rel density] 1.017 1.001-1.03 0 [facility] Squamous epithelial cells de tection in urine sediment by light microscopyOrdered By: Honey Rabago on 12-30-2021 Epithelial cells.squamous LM Ql (Urine sed) 1-2 [HPF] 0-2 [facility] Urine Cultureon 12-30-2021 Bacteria identified Cx Nom (U) ORGANISM: Escherichia coli (O:ESCCOL) Hammett Count >100,000 Aerobic JIMMY Charge (NUC86) SUSCEPTIBILITY [...] RESISTANT TO ALL B-LACTAM DRUGS. PERFORMED BY: [address] [place] [address] PATHOLOGIST HOME THEATRE TECHNICIAN FLIP GERMAN M.D. Normal [facility] Comment on above: Performed By: #### G LULS #### Point of Care testing , Urine bacteria detection by automated methodOrdered By: Honey Rabago on 10-19-2022 Bacteria Auto Ql (U) 1+ None Seen [facility] Urine clarity by refractomet ry automatedOrdered By: Honey Rabago on 12-30-2021 Clarity Refractometry automated (U) Cloudy Clear [facility] Urine glucose measurement by automated test strip (mass/volume)Ordered By: Honey Rabago on 12-30-2021 Glucose Auto test strip (U) [Mass/Vol] Normal mg/dL Normal [facility] Urine hemoglobin detection b y automated test stripOrdered By: Honey Rabago on 12-30-2021 Hemoglobin Auto test strip Ql (U) Negative Negative [facility] Urine leukocyte esterase det ection by automated test stripOrdered By: Honey Rabago on 12-30-2021 Leukocyte esterase Auto test strip Ql (U) 3+ Negative [facility] Urine pH measurement by auto mated test stripOrdered By: Honey Rabago on 12-30-2021 pH (U) 8.5 [pH] Normal 5.0-9.0 [facility] Comment on above: Order Comment: Name Collection Type:: Clean-Voided Midstream Performed By: #### G LULS #### Point of Care testing , Urine sediment crystal ident ification by light microscopyOrdered By: Honey Rabago on 12-30-2021 Crystals LM Nom (Urine sed) None seen [HPF] [facility] Urobilinogen Auto test strip (U) [Mass/Vol]Ordered By: Honey Rabago on 12-30-2021 Urobilinogen (U) [Mass/Vol] Normal mg/dL Normal [facility] PROTIMEon 12-21-2021 INR Coag (PPP) [Relative time] 2.34 {INR} Normal [facility] Comment on above: Performed By: #### P T #### [facility] [address] [address] [address] Joyce Strauss INR GUIDELINES SEE BELOW Normal [facility] Comment on above: Result Comment: GUDELIA RED INR: 2.0 - 3.0 CONDITIONS NOT LISTED BELOW 2.5 - 3.5 FOR PROSTHETIC HEART VALVE REPLACEMENT 2.5 - 3.5 RECURRENT THROMBOSIS Performed By: #### P T #### [facility] [address] [address] [address] Joyce Strauss PT Coag (PPP) [Time] 23.9 s Critically high 9.0-11.6 [facility] Comment on above: Performed By: #### P T #### [facility] [address] [place] [address] Dr. Joyce Strauss PROTIMEon 12-14-2021 INR GUIDELINES SEE BELOW Normal [facility] Comment on above: Result Comment: GUDELIA RED INR: 2.0 - 3.0 CONDITIONS NOT LISTED BELOW 2.5 - 3.5 FOR PROSTHETIC HEART VALVE REPLACEMENT 2.5 - 3.5 RECURRENT THROMBOSIS Performed By: #### P T #### [facility] [address] [place] [address] Dr. Joyce Strauss PT Coag (PPP) [Time] 20.6 s Critically high 9.0-11.6 [facility] Comment on above: Performed By: #### P T #### [facility] [address] [place] [address] Dr. Joyce Strauss Prothrombin Time INRon 12-14 Prothrombin Time INR [facility] [employer] Other INR Coag (PPP) [Relative time] 2.00 {INR} Normal [facility] [employer] Other Comment on above: Performed By: #### P T #### [facility] [address] [place] [address] Dr. Joyce Strauss PROTIMEon 11-30-2021 INR GUIDELINES SEE BELOW Normal [facility] Comment on above: Result Comment: GUDELIA RED INR: 2.0 - 3.0 CONDITIONS NOT LISTED BELOW 2.5 - 3.5 FOR PROSTHETIC HEART VALVE REPLACEMENT 2.5 - 3.5 RECURRENT THROMBOSIS Performed By: #### P T #### [facility] [address] [place] [address] Dr. Joyce Strauss PT Coag (PPP) [Time] 25.9 s Critically high 9.0-11.6 [facility] Comment on above: Performed By: #### P T #### [facility] [address] [place] [address] Dr. Joyce Strauss Prothrombin Time INRon 11-30 Prothrombin Time INR [facility] [employer] Other INR Coag (PPP) [Relative time] 2.55 {INR} Normal [facility] [employer] Other Comment on above: Performed By: #### P T #### [facility] [address] [place], [place] [address] Dr. Joyce Strauss Glucose Glucometer (dC) [M ass/Vol]Ordered By: Alcides Moya on 11-25-2021 Glucose [Mass/Vol] 125 mg/dL [facility] Comment on above: Random Glucose Refer ence Range is dependent on time and content of last meal. Glucose of more than 200 mg/dL in a nonstressed, ambulatory subject supports the diagnosis of Diabetes Mellitus. Glucose Poct Glucometerson 0 11-25-2021 Glucose [Mass/Vol] 125 mg/dL Normal [facility] Comment on above: Result Comment: [place] om Glucose Reference Range is dependent on time and content of last meal. Glucose of more than 200 mg/dL in a nonstressed, ambulatory subject supports the diagnosis of Diabetes Mellitus. PERFORMED BY: [address] [place] [address] PATHOLOGIST HOME THEATRE TECHNICIAN FLIP GERMAN M.D. Performed By: #### G LULS #### Point of Care testing , Laboratory - CoagulationOrde red By: Alcides Moya on 11-25-2021 PT Coag (PPP) [Time] 25.5 s 9.0-12.9 [facility] Platelet poor plasma interna tional normalized ratio (INR) by coagulation assay (relatOrdered By: Alcides Moya on 11-25-2021 INR Coag (PPP) [Relative time] 2.2 {INR} [facility] Comment on above: INR Therapeutic Rang [...] Coag (PPP) [Relative time] 2.2 {INR} Normal [facility] Comment on above: Order Comment: List [...] heart valves: 3 - 4.5 PERFORMED BY: [address] [address] [place] [address] PATHOLOGIST HOME THEATRE TECHNICIAN FLIP GERMAN M.D. Performed By: #### G LULS #### Point of Care testing , PT Coag (PPP) [Time] 25.5 s High 9.0-12.9 [facility] Comment on above: Order Comment: List the anticoagulant: COUMADIN/WARFARIN Performed By: #### G LULS #### Point of Care testing , Basic Metabolic Panelon 11-12 Anion gap [Moles/Vol] 11.8 mmol/L Normal 6.0-15.0 [facility] Comment on above: Performed By: #### G LULS #### Point of Care testing , Calcium [Mass/Vol] 8.7 mg/dL Normal 8.2-10.2 [facility] Comment on above: Performed By: #### G LULS #### Point of Care testing , Chloride [Moles/Vol] 103 mmol/L Normal 95-114 [facility] Comment on above: Performed By: #### G LULS #### Point of Care testing , CO2 [Moles/Vol] 28.1 mmol/L Normal 22.0-30.0 [facility] Comment on above: Performed By: #### G LULS #### Point of Care testing , Creatinine [Mass/Vol] 0.53 mg/dL Normal 0.44-1.03 [facility] Comment on above: Performed By: #### G LULS #### Point of Care testing , Creatinine Clr Calc Pharmacy 64.37 [facility] Comment on above: Result Comment: PERF ORMED BY: [facility] [address] [place] [address] PATHOLOGIST HOME THEATRE TECHNICIAN FLIP GERMAN M.D. Performed By: #### G LULS #### Point of Care testing , Estimated GFR ( Trista > 60 [facility] Comment on above: Result Comment: GFR estimated reference range: According to KDOQI guidelines, <60 ml/min/1.73m2 is sufficient to diagnose a patient with chronic kidney disease. Performed By: #### G LULS #### Point of Care testing , Estimated GFR (Non- Am > 60 [facility] Comment on above: Performed By: #### G LULS #### Point of Care testing , Glucose [Mass/Vol] 138 mg/dL High 70-100 [facility] Comment on above: Result Comment: [place] Glucose Reference Range is dependent on time and content of last meal. Glucose of more than 200 mg/dL in a nonstressed, ambulatory subject supports the diagnosis of Diabetes Mellitus. ADA recommended reference range Performed By: #### G LULS #### Point of Care testing , Potassium [Moles/Vol] 3.9 mmol/L Normal 3.5-5.1 [facility] Comment on above: Performed By: #### G LULS #### Point of Care testing , Sodium [Moles/Vol] 139 mmol/L Normal 136-146 [facility] Comment on above: Performed By: #### G LULS #### Point of Care testing , Urea nitrogen [Mass/Vol] 6 mg/dL Low 9-23 [facility] Comment on above: Performed By: #### G LULS #### Point of Care testing , Basophils Auto (Bld) [#/Vol] Ordered By: Elham Mendoza on 11-24-2021 Basophils (Bld) [#/Vol] N/A [facility] Basophils/100 WBC Auto (Bld) Ordered By: Elham Mendoza on 11-24-2021 Basophils/100 WBC (Bld) N/A [facility] Blood anisocytosis detection Ordered By: Elham Mendoza on 11-24-2021 Anisocytosis Ql (Bld) Moderate [facility] Blood hemoglobin measurement (mass/volume)Ordered By: Elham Mendoza on 11-24-2021 Hemoglobin (Bld) [Mass/Vol] 11.4 g/dL 11.8-15.4 [facility] Blood leukocytes automated c ount (number/volume)Ordered By: Elham Mendoza on 11-24-2021 WBC (Bld) [#/Vol] 6.0 10*3/uL 4.5-11.0 [facility] Creatinine and Glomerular fi ltration rate.predicted panel (S/P/Bld)Ordered By: Elham Mendoza on 11-24-2021 Creatinine [Mass/Vol] 0.53 mg/dL 0.44-1.03 [facility] Diff and CBCon 11-24-2021 Anisocytosis Ql (Bld) Moderate Normal [facility] Comment on above: Performed By: #### G LULS #### Point of Care testing , Eosinophils/100 WBC (Bld) 2 % Normal 1-3 [facility] Comment on above: Performed By: #### G LULS #### Point of Care testing , Erythrocyte distribution width (RBC) [Ratio] 18.4 % High 11.9-15.3 [facility] Comment on above: Performed By: #### G LULS #### Point of Care testing , Hematocrit (Bld) [Volume fraction] 34.9 % Normal 34.0-46.4 [facility] Comment on above: Performed By: #### G LULS #### Point of Care testing , Hemoglobin (Bld) [Mass/Vol] 11.4 g/dL Low 11.8-15.4 [facility] Comment on above: Performed By: #### G LULS #### Point of Care testing , Lymphocytes/100 WBC (Bld) 35 % Normal 18-42 [facility] Comment on above: Performed By: #### G LULS #### Point of Care testing , MCH (RBC) [Entitic mass] 29.9 pg Normal 24.7-34.3 [facility] Comment on above: Performed By: #### G LULS #### Point of Care testing , MCV (RBC) [Entitic vol] 91.2 fL Normal 80-100 [facility] Comment on above: Performed By: #### G LULS #### Point of Care testing , Mean Corpuscular HGB Conc 32.8 g/dL Normal 32.0-35.0 [facility] Comment on above: Performed By: #### G GELACIOLS #### Point of Care testing , Monocytes/100 WBC (Bld) 7 % Normal 2-11 [facility] Comment on above: Performed By: #### G GELACIOLS #### Point of Care testing , Myelocytes 1 % High 0-0 [facility] Comment on above: Performed By: #### G GELACIOLS #### Point of Care testing , Nucleated RBC/100 WBC (Bld) [Ratio] 0.5 % Normal 0-0.5 [facility] Comment on above: Result Comment: PERF ORMED BY: [facility] [address] [place] [address] PATHOLOGIST HOME THEATRE TECHNICIAN FLIP GERMAN M.D. Performed By: #### G GELACIOLS #### Point of Care testing , Platelet Estimate Normal Normal Normal [facility] Comment on above: Performed By: #### G LULS #### Point of Care testing , Platelet mean volume (Bld) [Entitic vol] 8.8 fL Normal 6.3-10.7 [facility] Comment on above: Performed By: #### G LULS #### Point of Care testing , Platelet Morphology Normal Normal Normal [facility] Comment on above: Result Comment: PERF ORMED BY: [facility] [place] [address] PATHOLOGIST HOME THEATRE TECHNICIAN FLIP GERMAN M.D. Performed By: #### G LULS #### Point of Care testing , Platelets (Bld) [#/Vol] 285 10*3/uL Normal 150-450 [facility] Comment on above: Performed By: #### G LULS #### Point of Care testing , RBC (Bld) [#/Vol] 3.82 10*6/uL Normal 3.60-5.00 [facility] Comment on above: Performed By: #### G GELACIOLS #### Point of Care testing , Reactive Lymphocytes 1 % Normal 0-12 [facility] Comment on above: Performed By: #### G LULS #### Point of Care testing , Segmented neutrophils/100 WBC (Bld) 54 % Normal 50-70 [facility] Comment on above: Performed By: #### G LULS #### Point of Care testing , WBC (Bld) [#/Vol] 6.0 10*3/uL Normal 4.5-11.0 [facility] Comment on above: Performed By: #### G LULS #### Point of Care testing , Eosinophils Auto (Bld) [#/Vo l]Ordered By: Elham Mendoza on 11-24-2021 Eosinophils (Bld) [#/Vol] N/A [facility] Eosinophils/100 WBC Auto (Bl d)Ordered By: Elham Mendoza on 11-24-2021 Eosinophils/100 WBC (Bld) N/A [facility] Erythrocyte distribution wid th Auto (RBC) [Ratio]Ordered By: Elham Mendoza on 11-24-2021 Erythrocyte distribution width (RBC) [Ratio] 18.4 % 11.9-15.3 [facility] Estimated glomerular filtrat ion rate (GFR) non- AmericanOrdered By: Elham Mendoza on 11-24-2021 GFR/1.73 sq M.predicted among non-blacks MDRD (S/P/Bld) [Vol rate/Area] > 60 mL/Min [facility] Glucose Poct Glucometerson 0 11-24-2021 Glucose [Mass/Vol] 139 mg/dL Normal [facility] Comment on above: Result Comment: [facility] Glucose Reference Range is dependent on time and content of last meal. Glucose of more than 200 mg/dL in a nonstressed, ambulatory subject supports the diagnosis of Diabetes Mellitus. PERFORMED BY: [facility] [place] [address] PATHOLOGIST HOME THEATRE TECHNICIAN FLIP GERMAN M.D. Performed By: #### G LUCOLLIN #### Point of Care testing , Hematocrit Auto (Bld) [Volum e fraction]Ordered By: Elham Mendoza on 11-24-2021 Hematocrit (Bld) [Volume fraction] 34.9 % 34.0-46.4 [facility] Laboratory - Hematology and Cell countsOrdered By: Elham Mendoza on 11-24-2021 Nucleated RBC/100 WBC (Bld) [Ratio] 0.5 % 0-0.5 [facility] Lymphocytes Auto (Bld) [#/Vo l]Ordered By: Elham Mendoza on 11-24-2021 Lymphocytes (Bld) [#/Vol] N/A [facility] Lymphocytes/100 WBC Auto (Bl d)Ordered By: Elham Mendoza on 11-24-2021 Lymphocytes/100 WBC (Bld) N/A [facility] Lymphocytes/100 WBC (Bld) 35 % 18-42 [facility] Lymphocytes/100 WBC Manual c nt (Bld)Ordered By: Elham Mendoza on 11-24-2021 Lymphocytes/100 WBC (Bld) 1 % 0-12 [facility] MCH Auto (RBC) [Entitic mass ]Ordered By: Elham Mendoza on 11-24-2021 MCH (RBC) [Entitic mass] 29.9 pg 24.7-34.3 [facility] MCHC Auto (RBC) [Mass/Vol]Or dered By: Elham Mendoza on 11-24-2021 MCHC (RBC) [Mass/Vol] 32.8 g/dL 32.0-35.0 [facility] MCV Auto (RBC) [Entitic vol] Ordered By: Elham Mendoza on 11-24-2021 MCV (RBC) [Entitic vol] 91.2 fL 80-100 [facility] Monocyte %Ordered By: Elham Mendoza on 11-24-2021 Monocytes/100 WBC (Bld) 2 % 1-3 [facility] Monocytes Auto (Bld) [#/Vol] Ordered By: Elham Mendoza on 11-24-2021 Monocytes (Bld) [#/Vol] N/A [facility] Monocytes/100 WBC Auto (Bld) Ordered By: Elham Mendoza on 11-24-2021 Monocytes/100 WBC (Bld) N/A [facility] Monocytes/100 WBC Manual cnt (Bld)Ordered By: Elham Mendoza on 11-24-2021 Monocytes/100 WBC (Bld) 7 % 2-11 [facility] Myelocytes/100 WBC Manual cn t (Bld)Ordered By: Elham Mendoza on 11-24-2021 Myelocytes/100 WBC (Bld) 1 % 0-0 [facility] Neutrophils Auto (Bld) [#/Vo l]Ordered By: Elham Mendoza on 11-24-2021 Neutrophils (Bld) [#/Vol] N/A [facility] Neutrophils/100 WBC Auto (Bl d)Ordered By: Elham Mendoza on 11-24-2021 Neutrophils/100 WBC (Bld) N/A [facility] No Panel InformationOrdered By: Elham Mendoza on 11-24-2021 Estimated GFR () > 60 mL/Min [facility] Comment on above: GFR estimated refere nce range: According to KDOQI guidelines, <60 ml/min/1.73m2 is sufficient to diagnose a patient with chronic kidney disease. Pharmacy Creatinine Clearance (Chem 64.37 [facility] Platelet Estimate Normal Normal [facility] Platelet Morphology Comment Normal Normal [facility] Platelet mean volume Auto (B ld) [Entitic vol]Ordered By: Elham Mendoza on 11-24-2021 Platelet mean volume (Bld) [Entitic vol] 8.8 fL 6.3-10.7 [facility] Platelets Auto (Bld) [#/Vol] Ordered By: Elham Mendoza on 11-24-2021 Platelets (Bld) [#/Vol] 285 10*3/uL 150-450 [facility] Prothrombin Time INRon 11-24 INR Coag (PPP) [Relative time] 2.6 {INR} Normal [facility] Comment on above: Order Comment: FIRST [...] heart valves: 3 - 4.5 PERFORMED BY: [facility] [address] [place] [address] PATHOLOGIST HOME THEATRE TECHNICIAN FLIP GERMAN M.D. Performed By: #### P T ####[place] [id number] [place] [id number] [facility] PT Coag (PPP) [Time] 29.3 s High 9.0-12.9 [facility] Comment on above: Order Comment: FIRST SPECIMEN HEMOLYZED Performed By: #### P T ####[place] [id number] [facility] RBC Auto (Bld) [#/Vol]Ordere d By: Elham Mendoza on 11-24-2021 RBC (Bld) [#/Vol] 3.82 10*6/uL 3.60-5.00 [facility] RBC morphologyOrdered By: Pramod Mendoza on 11-24-2021 RBC morphology finding Nom (Bld) N/A [facility] Segmented neutrophils/100 WB C Manual cnt (Bld)Ordered By: Elham Mendoza on 11-24-2021 Segmented neutrophils/100 WBC (Bld) 54 % 50-70 [facility] Serum or plasma anion gap de terminationOrdered By: Elham Mendoza on 11-24-2021 Anion gap [Moles/Vol] 11.8 mmol/L 6.0-15.0 [facility] Serum or plasma calcium alondra urement (mass/volume)Ordered By: Elham Mendoza on 11-24-2021 Calcium [Mass/Vol] 8.7 mg/dL 8.2-10.2 [facility] Serum or plasma chloride link surement (moles/volume)Ordered By: Elham Mendoza on 11-24-2021 Chloride [Moles/Vol] 103 mmol/L 95-114 [facility] Serum or plasma glucose alondra urement (mass/volume)Ordered By: Elham Mendoza on 11-24-2021 Glucose [Mass/Vol] 138 mg/dL 70-100 [facility] Comment on above: ADA recommended refe [...] on 11-24-2021 Potassium [Moles/Vol] 3.9 mmol/L 3.5-5.1 [facility] Serum or plasma sodium measu rement (moles/volume)Ordered By: Elham Mendoza on 11-24-2021 Sodium [Moles/Vol] 139 mmol/L 136-146 [facility] Serum or plasma total carbon dioxide measurement (moles/volume)Ordered By: Elham Mendoza on 11-24-2021 CO2 [Moles/Vol] 28.1 mmol/L 22.0-30.0 [facility] Serum or plasma urea nitroge n measurement (mass/volume)Ordered By: Elham Mendoza on 11-24-2021 Urea nitrogen [Mass/Vol] 6 mg/dL 9-23 [facility] Glucose Poct Glucometerson 0 11-23-2021 Glucose [Mass/Vol] 157 mg/dL Normal [facility] Comment on above: Result Comment: [place] om Glucose Reference Range is dependent on time and content of last meal. Glucose of more than 200 mg/dL in a nonstressed, ambulatory subject supports the diagnosis of Diabetes Mellitus. PERFORMED BY: [address] [place] [address] PATHOLOGIST HOME THEATRE TECHNICIAN FLIP GERMAN M.D. Performed By: #### G LULS #### Point of Care testing , Prothrombin Time INRon 11-23 INR Coag (PPP) [Relative time] 2.9 {INR} Normal [facility] Comment on above: Order Comment: List [...] heart valves: 3 - 4.5 PERFORMED BY: [place] [address] [place] [address] PATHOLOGIST HOME THEATRE TECHNICIAN FLIP GERMAN M.D. Performed By: #### G LULS #### Point of Care testing , PT Coag (PPP) [Time] 33.5 s High 9.0-12.9 [facility] Comment on above: Order Comment: List the anticoagulant: COUMADIN/WARFARIN Performed By: #### G LULS #### Point of Care testing , Glucose Poct Glucometerson 0 11-22-2021 Glucose [Mass/Vol] 161 mg/dL Normal [facility] Comment on above: Result Comment: [facility] Glucose Reference Range is dependent on time and content of last meal. Glucose of more than 200 mg/dL in a nonstressed, ambulatory subject supports the diagnosis of Diabetes Mellitus. PERFORMED BY: [place] [address] [place] [address] PATHOLOGIST HOME THEATRE TECHNICIAN FLIP GERMAN M.D. Performed By: #### G LULS #### Point of Care testing , Glucose [Mass/Vol] 112 mg/dL Normal [facility] Comment on above: Result Comment: [facility] Glucose Reference Range is dependent on time and content of last meal. Glucose of more than 200 mg/dL in a nonstressed, ambulatory subject supports the diagnosis of Diabetes Mellitus. PERFORMED BY: [address] [place] [id number] PATHOLOGIST HOME THEATRE TECHNICIAN FLIP GERMAN M.D. Performed By: #### G LULS #### Point of Care testing , Prothrombin Time INRon 11-22 INR Coag (PPP) [Relative time] 2.1 {INR} Normal [facility] Comment on above: Order Comment: List [...] heart valves: 3 - 4.5 PERFORMED BY: [address] [place] [address] PATHOLOGIST HOME THEATRE TECHNICIAN FLIP GERMAN M.D. Performed By: #### G LULS #### Point of Care testing , PT Coag (PPP) [Time] 24.4 s High 9.0-12.9 [facility] Comment on above: Order Comment: List the anticoagulant: COUMADIN/WARFARIN Performed By: #### G LULS #### Point of Care testing , Glucose Poct Glucometerson 0 11-21-2021 Commemt1 Glu2: Cleaned Meter Normal [facility] Comment on above: Result Comment: PERF ORMED BY: [address] [place] [id number] PATHOLOGIST HOME THEATRE TECHNICIAN FLIP GERMAN M.D. Performed By: #### G LULS #### Point of Care testing , Glucose [Mass/Vol] 130 mg/dL Normal [facility] Comment on above: Result Comment: [facility] Glucose Reference Range is dependent on time and content of last meal. Glucose of more than 200 mg/dL in a nonstressed, ambulatory subject supports the diagnosis of Diabetes Mellitus. Performed By: #### G LULS #### Point of Care testing , No Panel InformationOrdered By: Alcides Moya on 11-21-2021 Bedside Glucose Comment Glu2: cleaned meter [facility] Prothrombin Time INRon 11-21 INR Coag (PPP) [Relative time] 1.9 {INR} Normal [facility] Comment on above: Order Comment: List [...] heart valves: 3 - 4.5 PERFORMED BY: [address] [place] [address] PATHOLOGIST HOME THEATRE TECHNICIAN FLIP GERMAN M.D. Performed By: #### G LULS #### Point of Care testing , PT Coag (PPP) [Time] 21.8 s High 9.0-12.9 [facility] Comment on above: Order Comment: List the anticoagulant: COUMADIN/WARFARIN Performed By: #### G LULS #### Point of Care testing , Glucose Poct Glucometerson 0 11-20-2021 Commemt1 Glu2: Cleaned Meter [facility] Comment on above: Result Comment: PERF ORMED BY: [facility] [address] [place] [address] PATHOLOGIST HOME THEATRE TECHNICIAN FLIP GERMAN M.D. Performed By: #### G LULS #### Point of Care testing , Glucose [Mass/Vol] 112 mg/dL [facility] Comment on above: Result Comment: [facility] Glucose Reference Range is dependent on time and content of last meal. Glucose of more than 200 mg/dL in a nonstressed, ambulatory subject supports the diagnosis of Diabetes Mellitus. Performed By: #### G LULS #### Point of Care testing , Glucose [Mass/Vol] 129 mg/dL Normal [facility] Comment on above: Result Comment: [place] Glucose Reference Range is dependent on time and content of last meal. Glucose of more than 200 mg/dL in a nonstressed, ambulatory subject supports the diagnosis of Diabetes Mellitus. PERFORMED BY: [address] [place] [id number] PATHOLOGIST HOME THEATRE TECHNICIAN FLIP GERMAN M.D. Performed By: #### G IAN #### Point of Care testing , Prothrombin Time INRon 11-20 INR Coag (PPP) [Relative time] 2.3 {INR} Normal [facility] Comment on above: Order Comment: List [...] heart valves: 3 - 4.5 PERFORMED BY: [address] [place] [address] PATHOLOGIST HOME THEATRE TECHNICIAN FLIP GERMAN M.D. Performed By: #### G IAN #### Point of Care testing , PT Coag (PPP) [Time] 26.6 s High 9.0-12.9 [facility] Comment on above: Order Comment: List the anticoagulant: COUMADIN/WARFARIN Performed By: #### G LUCOLLIN #### Point of Care testing , CT biopsyOrdered By: Amanda viveros on 11-19-2021 Transferrin [Mass/Vol] 173 mg/dL 180-380 [facility] Glucose Poct Glucometerson 0 11-19-2021 Glucose [Mass/Vol] 122 mg/dL Normal [facility] Comment on above: Result Comment: [place] Glucose Reference Range is dependent on time and content of last meal. Glucose of more than 200 mg/dL in a nonstressed, ambulatory subject supports the diagnosis of Diabetes Mellitus. PERFORMED BY: [address] [place] [address] PATHOLOGIST HOME THEATRE TECHNICIAN FLIP GERMAN M.D. Performed By: #### G LULS #### Point of Care testing , Iron [Mass/volume] in Serum or PlasmaOrdered By: Amanda Jaimes on 11-19-2021 Iron [Mass/Vol] 56 ug/dL 40-150 [facility] Iron and TIBC Profileon 09 8-2021 % Iron Saturation 23.0 % Normal 20-50 [facility] Comment on above: Performed By: #### F E and TIBC ####[place] [id number] [place] [id number] [facility] Iron [Mass/Vol] 56 ug/dL Normal 40-150 [facility] Comment on above: Performed By: #### F E and TIBC ####[place] [id number] [facility] Total Iron Binding Capacity 242 ug/dL Low 255-450 [facility] Comment on above: Performed By: #### F E and TIBC ####[place] [id number] [facility] Transferrin [Mass/Vol] 173 mg/dL Low 180-380 [facility] Comment on above: Result Comment: PERF ORMED BY: [facility] [address] [place] [id number] PATHOLOGIST HOME THEATRE TECHNICIAN FLIP GERMAN M.D. Performed By: #### F E and TIBC ####[place] [id number] [facility] Iron binding capacity [Mass/ volume] in Serum or PlasmaOrdered By: Amanda Jaimes on 11-19-2021 Iron binding capacity [Mass/Vol] 242 ug/dL 255-450 [facility] Iron saturation [Mass Fracti on] in Serum or PlasmaOrdered By: Amanda Jaimes on 11-19-2021 Iron saturation [Mass fraction] 23.0 % 20-50 [facility] Prothrombin Time INRon 11-19 INR Coag (PPP) [Relative time] 2.5 {INR} Normal [facility] Comment on above: Order Comment: List [...] heart valves: 3 - 4.5 PERFORMED BY: [facility] [address] [place] [id number] PATHOLOGIST HOME THEATRE TECHNICIAN FLIP GERMAN M.D. Performed By: #### P T ####[facility] [place] [phone] [facility] PT Coag (PPP) [Time] 28.4 s High 9.0-12.9 [facility] Comment on above: Order Comment: List the anticoagulant: COUMADIN/WARFARIN Performed By: #### P T ####[place] [id number] [place] [phone] [facility] Basic Metabolic Panelon 09-0 -2021 Anion gap [Moles/Vol] 12.3 mmol/L Normal 6.0-15.0 [facility] Comment on above: Performed By: #### G LULS #### Point of Care testing , Calcium [Mass/Vol] 8.8 mg/dL Normal 8.2-10.2 [facility] Comment on above: Performed By: #### G LULS #### Point of Care testing , Chloride [Moles/Vol] 101 mmol/L Normal 95-114 [facility] Comment on above: Performed By: #### G LULS #### Point of Care testing , CO2 [Moles/Vol] 30.7 mmol/L High 22.0-30.0 [facility] Comment on above: Performed By: #### G LULS #### Point of Care testing , Creatinine [Mass/Vol] 0.53 mg/dL Normal 0.44-1.03 [facility] Comment on above: Performed By: #### G LULS #### Point of Care testing , Creatinine Clr Calc Pharmacy 64.26 [facility] Comment on above: Result Comment: PERF ORMED BY: [facility] [address] [place] [address] PATHOLOGIST HOME THEATRE TECHNICIAN FLIP GERMAN M.D. Performed By: #### G LULS #### Point of Care testing , Estimated GFR ( Trista > 60 Normal [facility] Comment on above: Result Comment: GFR estimated reference range: According to KDOQI guidelines, <60 ml/min/1.73m2 is sufficient to diagnose a patient with chronic kidney disease. Performed By: #### G LULS #### Point of Care testing , Estimated GFR (Non- Am > 60 Normal [facility] Comment on above: Performed By: #### G LULS #### Point of Care testing , Glucose [Mass/Vol] 131 mg/dL High 70-100 [facility] Comment on above: Result Comment: [place] Glucose Reference Range is dependent on time and content of last meal. Glucose of more than 200 mg/dL in a nonstressed, ambulatory subject supports the diagnosis of Diabetes Mellitus. ADA recommended reference range Performed By: #### G LULS #### Point of Care testing , Potassium [Moles/Vol] 4.0 mmol/L Normal 3.5-5.1 [facility] Comment on above: Performed By: #### G LULS #### Point of Care testing , Sodium [Moles/Vol] 140 mmol/L Normal 136-146 [facility] Comment on above: Performed By: #### G LULS #### Point of Care testing , Urea nitrogen [Mass/Vol] 8 mg/dL Low 9-23 [facility] Comment on above: Performed By: #### G LULS #### Point of Care testing , Complete Blood Count Auto Di ffon 11-18-2021 Basophils (Bld) [#/Vol] 0.0 10*3/uL Normal 0.0-0.2 [facility] Comment on above: Result Comment: PERF ORMED BY: [facility] [address] [place] [address] PATHOLOGIST HOME THEATRE TECHNICIAN FLIP GERMAN M.D. Performed By: #### G LULS #### Point of Care testing , Basophils/100 WBC (Bld) 0.5 % Normal . [facility] Comment on above: Performed By: #### Ezra BRIZUELALS #### Point of Care testing , Eosinophils (Bld) [#/Vol] 0.2 10*3/uL Normal 0.0-0.45 [facility] Comment on above: Performed By: #### Ezra SOSA #### Point of Care testing , Eosinophils/100 WBC (Bld) 4.0 % Normal . [facility] Comment on above: Performed By: #### Ezra SOSA #### Point of Care testing , Erythrocyte distribution width (RBC) [Ratio] 17.8 % High 11.9-15.3 [facility] Comment on above: Performed By: #### Ezra SOSA #### Point of Care testing , Hematocrit (Bld) [Volume fraction] 33.3 % Low 34.0-46.4 [facility] Comment on above: Performed By: #### Ezra SOSA #### Point of Care testing , Hemoglobin (Bld) [Mass/Vol] 10.9 g/dL Low 11.8-15.4 [facility] Comment on above: Performed By: #### Ezra SOSA #### Point of Care testing , Lymphocytes (Bld) [#/Vol] 2.2 10*3/uL Normal 1.00-4.8 [facility] Comment on above: Performed By: #### Ezra SOSA #### Point of Care testing , Lymphocytes/100 WBC (Bld) 40.3 % Normal . [facility] Comment on above: Performed By: #### Ezra SOSA #### Point of Care testing , MCH (RBC) [Entitic mass] 29.8 pg Normal 24.7-34.3 [facility] Comment on above: Performed By: #### Ezra SOSA #### Point of Care testing , MCV (RBC) [Entitic vol] 91.3 fL Normal 80-100 [facility] Comment on above: Performed By: #### Ezra SOSA #### Point of Care testing , Mean Corpuscular HGB Conc 32.6 g/dL Normal 32.0-35.0 [facility] Comment on above: Performed By: #### G IAN #### Point of Care testing , Monocytes (Bld) [#/Vol] 0.7 10*3/uL Normal 0.0-0.8 [facility] Comment on above: Performed By: #### G IAN #### Point of Care testing , Monocytes/100 WBC (Bld) 12.3 % Normal . [facility] Comment on above: Performed By: #### G GELACIOLS #### Point of Care testing , Neutrophils (Bld) [#/Vol] 2.3 10*3/uL Normal 1.8-7.7 [facility] Comment on above: Performed By: #### Ezra SOSA #### Point of Care testing , Neutrophils/100 WBC (Bld) 42.9 % Normal . [facility] Comment on above: Performed By: #### Ezra BRIZUELALS #### Point of Care testing , Nucleated RBC/100 WBC (Bld) [Ratio] 0.1 % Normal 0-0.5 [facility] Comment on above: Performed By: #### Ezra SOSA #### Point of Care testing , Platelet mean volume (Bld) [Entitic vol] 8.5 fL Normal 6.3-10.7 [facility] Comment on above: Performed By: #### G IAN #### Point of Care testing , Platelets (Bld) [#/Vol] 224 10*3/uL Normal 150-450 [facility] Comment on above: Performed By: #### Ezra SOSA #### Point of Care testing , RBC (Bld) [#/Vol] 3.65 10*6/uL Normal 3.60-5.00 [facility] Comment on above: Performed By: #### Ezra SOSA #### Point of Care testing , WBC (Bld) [#/Vol] 5.5 10*3/uL Normal 4.5-11.0 [facility] Comment on above: Performed By: #### Ezra SOSA #### Point of Care testing , Glucose Poct Glucometerson 0 11-18-2021 Glucose [Mass/Vol] 134 mg/dL Normal [facility] Comment on above: Result Comment: [facility] Glucose Reference Range is dependent on time and content of last meal. Glucose of more than 200 mg/dL in a nonstressed, ambulatory subject supports the diagnosis of Diabetes Mellitus. PERFORMED BY: [facility] [address] [place] [id number] PATHOLOGIST HOME THEATRE TECHNICIAN FLIP GERMAN M.D. Performed By: #### G LULS #### Point of Care testing , Prothrombin Time INRon 11-18 INR Coag (PPP) [Relative time] 2.5 {INR} Normal [facility] Comment on above: Order Comment: List [...] heart valves: 3 - 4.5 PERFORMED BY: [address] [place] [id number] PATHOLOGIST HOME THEATRE TECHNICIAN FLIP GERMAN M.D. Performed By: #### G LULS #### Point of Care testing , PT Coag (PPP) [Time] 28.3 s High 9.0-12.9 [facility] Comment on above: Order Comment: List the anticoagulant: COUMADIN/WARFARIN Performed By: #### G LULS #### Point of Care testing , Glucose Poct Glucometerson 0 11-17-2021 Glucose [Mass/Vol] 124 mg/dL Normal [facility] Comment on above: Result Comment: [facility] Glucose Reference Range is dependent on time and content of last meal. Glucose of more than 200 mg/dL in a nonstressed, ambulatory subject supports the diagnosis of Diabetes Mellitus. PERFORMED BY: [facility] [address] [place] [address] PATHOLOGIST HOME THEATRE TECHNICIAN FLIP GERMAN M.D. Performed By: #### G LULS #### Point of Care testing , Prothrombin Time INRon 11-17 INR Coag (PPP) [Relative time] 2.7 {INR} Normal [facility] Comment on above: Order Comment: List [...] heart valves: 3 - 4.5 PERFORMED BY: [facility] [address] [place] [id number] PATHOLOGIST HOME THEATRE TECHNICIAN FLIP GERMAN M.D. Performed By: #### P T ####[place] [id number] [facility] PT Coag (PPP) [Time] 30.8 s High 9.0-12.9 [facility] Comment on above: Order Comment: List the anticoagulant: COUMADIN/WARFARIN Performed By: #### P T ####[address] [facility] Glucose Poct Glucometerson 0 11-16-2021 Commemt1 Glu2: Cleaned Meter [facility] Comment on above: Result Comment: PERF ORMED BY: [facility] [address] [place] [address] PATHOLOGIST HOME THEATRE TECHNICIAN FLIP GERMAN M.D. Performed By: #### G LULS #### Point of Care testing , Glucose [Mass/Vol] 125 mg/dL Normal [facility] Comment on above: Result Comment: [facility] Glucose Reference Range is dependent on time and content of last meal. Glucose of more than 200 mg/dL in a nonstressed, ambulatory subject supports the diagnosis of Diabetes Mellitus. Performed By: #### G LULS #### Point of Care testing , Prothrombin Time INRon 11-16 INR Coag (PPP) [Relative time] 2.9 {INR} Normal [facility] Comment on above: Order Comment: List [...] heart valves: 3 - 4.5 PERFORMED BY: [address] [place] [address] PATHOLOGIST HOME THEATRE TECHNICIAN FLIP GERMAN M.D. Performed By: #### G LULS #### Point of Care testing , PT Coag (PPP) [Time] 32.9 s High 9.0-12.9 [facility] Comment on above: Order Comment: List the anticoagulant: COUMADIN/WARFARIN Performed By: #### G LULS #### Point of Care testing , Glucose Poct Glucometerson 0 11-15-2021 Glucose [Mass/Vol] 145 mg/dL Normal [facility] Comment on above: Result Comment: [place] Glucose Reference Range is dependent on time and content of last meal. Glucose of more than 200 mg/dL in a nonstressed, ambulatory subject supports the diagnosis of Diabetes Mellitus. PERFORMED BY: [address] [place] [address] PATHOLOGIST HOME THEATRE TECHNICIAN FLIP GERMAN M.D. Performed By: #### G LULS #### Point of Care testing , Commemt1 Glu2: Cleaned Meter Normal [facility] Comment on above: Result Comment: PERF ORMED BY: [address] [address] PATHOLOGIST HOME THEATRE TECHNICIAN FLIP GERMAN M.D. Performed By: #### G LULS #### Point of Care testing , Glucose [Mass/Vol] 131 mg/dL Normal [facility] Comment on above: Result Comment: [place] Glucose Reference Range is dependent on time and content of last meal. Glucose of more than 200 mg/dL in a nonstressed, ambulatory subject supports the diagnosis of Diabetes Mellitus. Performed By: #### G LULS #### Point of Care testing , Commemt1 Glu2: Cleaned Meter [facility] Comment on above: Result Comment: PERF ORMED BY: [address] [place] [address] PATHOLOGIST HOME THEATRE TECHNICIAN FLIP GERMAN M.D. Performed By: #### G LULS #### Point of Care testing , Glucose [Mass/Vol] 201 mg/dL Normal [facility] Comment on above: Result Comment: [place] Glucose Reference Range is dependent on time and content of last meal. Glucose of more than 200 mg/dL in a nonstressed, ambulatory subject supports the diagnosis of Diabetes Mellitus. Performed By: #### G LULS #### Point of Care testing , Commemt1 Glu2: Cleaned Meter [facility] Comment on above: Result Comment: PERF ORMED BY: [address] [place] [address] PATHOLOGIST HOME THEATRE TECHNICIAN FLIP GERMAN M.D. Performed By: #### G LULS #### Point of Care testing , Glucose [Mass/Vol] 184 mg/dL Normal [facility] Comment on above: Result Comment: [place] [facility] Glucose Reference Range is dependent on time and content of last meal. Glucose of more than 200 mg/dL in a nonstressed, ambulatory subject supports the diagnosis of Diabetes Mellitus. Performed By: #### G LULS #### Point of Care testing , Prothrombin Time INRon 11-15 INR Coag (PPP) [Relative time] 2.4 {INR} [facility] Comment on above: Order Comment: List the [...] heart valves: 3 - 4.5 PERFORMED BY: [address] [place] [id number] PATHOLOGIST HOME THEATRE TECHNICIAN FLIP GERMAN M.D. Performed By: #### G LULS #### Point of Care testing , PT Coag (PPP) [Time] 27.8 s High 9.0-12.9 [facility] Comment on above: Order Comment: List the anticoagulant: COUMADIN/WARFARIN Performed By: #### G LULS #### Point of Care testing , Glucose Poct Glucometerson 0 11-14-2021 Commemt1 Glu2: Cleaned Meter Normal [facility] Comment on above: Result Comment: PERF ORMED BY: [facility] [address] [place] [address] PATHOLOGIST HOME THEATRE TECHNICIAN FLIP GERMAN M.D. Performed By: #### G LULS #### Point of Care testing , Glucose [Mass/Vol] 152 mg/dL Normal [facility] Comment on above: Result Comment: [place] Glucose Reference Range is dependent on time and content of last meal. Glucose of more than 200 mg/dL in a nonstressed, ambulatory subject supports the diagnosis of Diabetes Mellitus. Performed By: #### G LULS #### Point of Care testing , Glucose [Mass/Vol] 179 mg/dL Normal [facility] Comment on above: Result Comment: [place] Glucose Reference Range is dependent on time and content of last meal. Glucose of more than 200 mg/dL in a nonstressed, ambulatory subject supports the diagnosis of Diabetes Mellitus. PERFORMED BY: [address] [place] [id number] PATHOLOGIST HOME THEATRE TECHNICIAN FLIP GERMAN M.D. Performed By: #### G LULS #### Point of Care testing , Glucose [Mass/Vol] 211 mg/dL Normal [facility] Comment on above: Result Comment: [place] Glucose Reference Range is dependent on time and content of last meal. Glucose of more than 200 mg/dL in a nonstressed, ambulatory subject supports the diagnosis of Diabetes Mellitus. PERFORMED BY: [address] [place] [address] PATHOLOGIST HOME THEATRE TECHNICIAN FLIP GERMAN M.D. Performed By: #### G LULS #### Point of Care testing , Glucose [Mass/Vol] 184 mg/dL Normal [facility] Comment on above: Result Comment: [place] Glucose Reference Range is dependent on time and content of last meal. Glucose of more than 200 mg/dL in a nonstressed, ambulatory subject supports the diagnosis of Diabetes Mellitus. PERFORMED BY: [facility] [address] [place] [address] PATHOLOGIST HOME THEATRE TECHNICIAN FLIP GERMAN M.D. Performed By: #### G LULS #### Point of Care testing , Prothrombin Time INRon 11-14 INR Coag (PPP) [Relative time] 2.2 {INR} Normal [facility] Comment on above: Order Comment: List [...] heart valves: 3 - 4.5 PERFORMED BY: [facility] [address] [place] [address] PATHOLOGIST HOME THEATRE TECHNICIAN FLIP GERMAN M.D. Performed By: #### G LULS #### Point of Care testing , PT Coag (PPP) [Time] 25.7 s High 9.0-12.9 [facility] Comment on above: Order Comment: List the anticoagulant: COUMADIN/WARFARIN Performed By: #### G LULS #### Point of Care testing , Glucose Glucometer (BldC) [M ass/Vol]Ordered By: Alcides Moya on 11-13-2021 Glucose [Mass/Vol] 146 mg/dL [facility] Comment on above: Random Glucose Refer ence Range is dependent on time and content of last meal. Glucose of more than 200 mg/dL in a nonstressed, ambulatory subject supports the diagnosis of Diabetes Mellitus. Glucose Poct Glucometerson 0 11-13-2021 Glucose [Mass/Vol] 146 mg/dL Normal [facility] Comment on above: Result Comment: [place] Glucose Reference Range is dependent on time and content of last meal. Glucose of more than 200 mg/dL in a nonstressed, ambulatory subject supports the diagnosis of Diabetes Mellitus. PERFORMED BY: [address] [address] PATHOLOGIST HOME THEATRE TECHNICIAN FLIP GERMAN M.D. Performed By: #### G LULS ####Point of Care testing, Commemt1 Glu2: Cleaned Meter [facility] Comment on above: Result Comment: PERF ORMED BY: [address] [place] [address] PATHOLOGIST HOME THEATRE TECHNICIAN FLIP GERMAN M.D. Performed By: #### G LULS ####Point of Care testing, Glucose [Mass/Vol] 128 mg/dL Normal [facility] Comment on above: Result Comment: [place] Glucose Reference Range is dependent on time and content of last meal. Glucose of more than 200 mg/dL in a nonstressed, ambulatory subject supports the diagnosis of Diabetes Mellitus. Performed By: #### G LULS ####Point of Care testing, Commemt1 Glu2: Cleaned Meter [facility] Comment on above: Result Comment: PERF ORMED BY: [address] [place] [address] PATHOLOGIST HOME THEATRE TECHNICIAN FLIP GERMAN M.D. Performed By: #### G LULS #### Point of Care testing , Glucose [Mass/Vol] 145 mg/dL Normal [facility] Comment on above: Result Comment: [place] Glucose Reference Range is dependent on time and content of last meal. Glucose of more than 200 mg/dL in a nonstressed, ambulatory subject supports the diagnosis of Diabetes Mellitus. Performed By: #### G LULS #### Point of Care testing , Commemt1 Glu2: Cleaned Meter [facility] Comment on above: Result Comment: PERF ORMED BY: [address] [place] [address] PATHOLOGIST HOME THEATRE TECHNICIAN FILP GERMAN M.D. Performed By: #### G LULS #### Point of Care testing , Glucose [Mass/Vol] 122 mg/dL Normal [facility] Comment on above: Result Comment: [place] Glucose Reference Range is dependent on time and content of last meal. Glucose of more than 200 mg/dL in a nonstressed, ambulatory subject supports the diagnosis of Diabetes Mellitus. Performed By: #### G LULS #### Point of Care testing , Glucose [Mass/Vol] 116 mg/dL Normal [facility] Comment on above: Result Comment: [place] Glucose Reference Range is dependent on time and content of last meal. Glucose of more than 200 mg/dL in a nonstressed, ambulatory subject supports the diagnosis of Diabetes Mellitus. PERFORMED BY: [facility] [address] [place] [address] PATHOLOGIST HOME THEATRE TECHNICIAN FLIP GERMAN M.D. Performed By: #### G LULS ####Point of Care testing, No Panel InformationOrdered By: Alcides Moya on 11-13-2021 Bedside Glucose Comment Glu2: cleaned meter [facility] Platelet poor plasma interna tional normalized ratio (INR) by coagulation assay (relatOrdered By: Alcides Moya on 11-13-2021 INR Coag (PPP) [Relative time] 2.6 {INR} Normal [facility] Comment on above: INR Therapeutic Rang [...] heart valves: 3 - 4.5 PERFORMED BY: [facility] [address] [place] [id number] PATHOLOGIST HOME THEATRE TECHNICIAN FLIP GERMAN M.D. Performed By: #### P T ####[place] [id number] [place] [address] [facility] Prothrombin Time INROrdered By: Alcides Moya on 11-13-2021 PT Coag (PPP) [Time] 29.5 s High 9.0-12.9 [facility] Comment on above: Order Comment: List the anticoagulant: COUMADIN/WARFARIN Performed By: #### P T ####[place] [id number] [place] [address] [facility] Albumin [Mass/volume] in Ser um or PlasmaOrdered By: Alcides Moya on 11-12-2021 Albumin [Mass/Vol] 3.1 g/dL 3.2-5.5 [facility] Basophils Auto (Bld) [#/Vol] Ordered By: Alcides Moya on 11-12-2021 Basophils (Bld) [#/Vol] 0.0 10*3/uL 0.0-0.2 [facility] Basophils/100 WBC Auto (Bld) Ordered By: Alcides Moya on 11-12-2021 Basophils/100 WBC (Bld) 0.5 % . [facility] Blood hemoglobin measurement (mass/volume)Ordered By: Alcides Moya on 11-12-2021 Hemoglobin (Bld) [Mass/Vol] 12.5 g/dL 11.8-15.4 [facility] Blood leukocytes automated c ount (number/volume)Ordered By: Alcides Moya on 11-12-2021 WBC (Bld) [#/Vol] 5.0 10*3/uL 4.5-11.0 [facility] Complete Blood Count Auto Di ffon 11-12-2021 Basophils (Bld) [#/Vol] 0.0 10*3/uL Normal 0.0-0.2 [facility] Comment on above: Result Comment: PERF ORMED BY: [facility] [address] [place] [address] PATHOLOGIST HOME THEATRE TECHNICIAN FLIP GERMAN M.D. Performed By: #### G GELACIOLS #### Point of Care testing , Basophils/100 WBC (Bld) 0.5 % Normal . [facility] Comment on above: Performed By: #### G GELACIOLS #### Point of Care testing , Eosinophils (Bld) [#/Vol] 0.2 10*3/uL Normal 0.0-0.45 [facility] Comment on above: Performed By: #### G LULS #### Point of Care testing , Eosinophils/100 WBC (Bld) 3.8 % Normal . [facility] Comment on above: Performed By: #### G GELACIOLS #### Point of Care testing , Erythrocyte distribution width (RBC) [Ratio] 17.3 % High 11.9-15.3 [facility] Comment on above: Performed By: #### G LULS #### Point of Care testing , Hematocrit (Bld) [Volume fraction] 38.9 % Normal 34.0-46.4 [facility] Comment on above: Performed By: #### G LULS #### Point of Care testing , Hemoglobin (Bld) [Mass/Vol] 12.5 g/dL Normal 11.8-15.4 [facility] Comment on above: Performed By: #### G LULS #### Point of Care testing , Lymphocytes (Bld) [#/Vol] 2.0 10*3/uL Normal 1.00-4.8 [facility] Comment on above: Performed By: #### G LULS #### Point of Care testing , Lymphocytes/100 WBC (Bld) 39.7 % Normal . [facility] Comment on above: Performed By: #### G LULS #### Point of Care testing , MCH (RBC) [Entitic mass] 29.2 pg Normal 24.7-34.3 [facility] Comment on above: Performed By: #### G LULS #### Point of Care testing , MCV (RBC) [Entitic vol] 90.6 fL Normal 80-100 [facility] Comment on above: Performed By: #### G LULS #### Point of Care testing , Mean Corpuscular HGB Conc 32.2 g/dL Normal 32.0-35.0 [facility] Comment on above: Performed By: #### Ezra SOSA #### Point of Care testing , Monocytes (Bld) [#/Vol] 0.5 10*3/uL Normal 0.0-0.8 [facility] Comment on above: Performed By: #### Ezra SOSA #### Point of Care testing , Monocytes/100 WBC (Bld) 10.1 % Normal . [facility] Comment on above: Performed By: #### Ezra SOSA #### Point of Care testing , Neutrophils (Bld) [#/Vol] 2.3 10*3/uL Normal 1.8-7.7 [facility] Comment on above: Performed By: #### Ezra SOSA #### Point of Care testing , Neutrophils/100 WBC (Bld) 45.9 % Normal . [facility] Comment on above: Performed By: #### Ezra SOSA #### Point of Care testing , Nucleated RBC/100 WBC (Bld) [Ratio] 0.0 % Normal 0-0.5 [facility] Comment on above: Performed By: ###Tabby SOSA #### Point of Care testing , Platelet mean volume (Bld) [Entitic vol] 8.6 fL Normal 6.3-10.7 [facility] Comment on above: Performed By: #### Ezra SOSA #### Point of Care testing , Platelets (Bld) [#/Vol] 241 10*3/uL Normal 150-450 [facility] Comment on above: Performed By: #### Ezra SOSA #### Point of Care testing , RBC (Bld) [#/Vol] 4.29 10*6/uL Normal 3.60-5.00 [facility] Comment on above: Performed By: #### Ezra SOSA #### Point of Care testing , WBC (Bld) [#/Vol] 5.0 10*3/uL Normal 4.5-11.0 [facility] Comment on above: Performed By: #### Ezra SOSA #### Point of Care testing , Comprehensive Metabolic Pane loco 11-12-2021 Albumin [Mass/Vol] 3.1 g/dL Low 3.2-5.5 [facility] Comment on above: Performed By: #### Ezra SOSA #### Point of Care testing , Albumin/Globulin [Mass ratio] 0.8 {ratio} Normal [facility] Comment on above: Performed By: #### Ezra BRIZUELALS #### Point of Care testing , ALP [Catalytic activity/Vol] 84 U/L Normal 32-92 [facility] Comment on above: Performed By: #### Ezra SOSA #### Point of Care testing , ALT [Catalytic activity/Vol] 13 U/L Normal 10-60 [facility] Comment on above: Performed By: #### Ezra SOSA #### Point of Care testing , Anion gap [Moles/Vol] 11.9 mmol/L Normal 6.0-15.0 [facility] Comment on above: Performed By: #### Ezra SOSA #### Point of Care testing , AST [Catalytic activity/Vol] 22 U/L Normal 10-42 [facility] Comment on above: Performed By: #### Ezra SOSA #### Point of Care testing , Bilirubin [Mass/Vol] 0.8 mg/dL Normal 0.3-1.2 [facility] Comment on above: Performed By: #### Ezra SOSA #### Point of Care testing , Calcium [Mass/Vol] 9.2 mg/dL Normal 8.2-10.2 [facility] Comment on above: Performed By: #### Ezra SOSA #### Point of Care testing , Chloride [Moles/Vol] 100 mmol/L Normal 95-114 [facility] Comment on above: Performed By: #### Ezra SOSA #### Point of Care testing , CO2 [Moles/Vol] 31.0 mmol/L High 22.0-30.0 [facility] Comment on above: Performed By: #### Ezra SOSA #### Point of Care testing , Creatinine [Mass/Vol] 0.55 mg/dL Normal 0.44-1.03 [facility] Comment on above: Performed By: #### G LULS #### Point of Care testing , Creatinine Clr Calc Pharmacy 64.44 [facility] Comment on above: Performed By: #### G LULS #### Point of Care testing , Estimated GFR ( Trista > 60 [facility] Comment on above: Result Comment: GFR estimated reference range: According to KDOQI guidelines, <60 ml/min/1.73m2 is sufficient to diagnose a patient with chronic kidney disease. Performed By: #### G LULS #### Point of Care testing , Estimated GFR (Non- Am > 60 [facility] Comment on above: Performed By: #### G LULS #### Point of Care testing , Globulin (S) [Mass/Vol] 3.7 g/dL [facility] Comment on above: Performed By: #### G LULS #### Point of Care testing , Glucose [Mass/Vol] 130 mg/dL High 70-100 [facility] Comment on above: Result Comment: [facility] Glucose Reference Range is dependent on time and content of last meal. Glucose of more than 200 mg/dL in a nonstressed, ambulatory subject supports the diagnosis of Diabetes Mellitus. ADA recommended reference range Performed By: #### G LULS #### Point of Care testing , Potassium [Moles/Vol] 3.9 mmol/L Normal 3.5-5.1 [facility] Comment on above: Performed By: #### G LULS #### Point of Care testing , Protein [Mass/Vol] 6.8 g/dL Normal 6.1-7.9 [facility] Comment on above: Performed By: #### G LULS #### Point of Care testing , Sodium [Moles/Vol] 139 mmol/L Normal 136-146 [facility] Comment on above: Performed By: #### G LULS #### Point of Care testing , Urea nitrogen [Mass/Vol] 8 mg/dL Low 9-23 [facility] Comment on above: Performed By: #### G LULS #### Point of Care testing , Creatinine and Glomerular fi ltration rate.predicted panel (S/P/Bld)Ordered By: Alcides Moya on 11-12-2021 Creatinine [Mass/Vol] 0.55 mg/dL 0.44-1.03 [facility] Eosinophils Auto (Bld) [#/Vo l]Ordered By: Alcides Moya on 11-12-2021 Eosinophils (Bld) [#/Vol] 0.2 10*3/uL 0.0-0.45 [facility] Eosinophils/100 WBC Auto (Bl d)Ordered By: Alcides Moya on 11-12-2021 Eosinophils/100 WBC (Bld) 3.8 % . [facility] Erythrocyte distribution wid th Auto (RBC) [Ratio]Ordered By: Alcides Moya on 11-12-2021 Erythrocyte distribution width (RBC) [Ratio] 17.3 % 11.9-15.3 [facility] Estimated glomerular filtrat ion rate (GFR) non- AmericanOrdered By: Alcides Moya on 11-12-2021 GFR/1.73 sq M.predicted among non-blacks MDRD (S/P/Bld) [Vol rate/Area] > 60 mL/Min [facility] Globulin Calc (S) [Mass/Vol] Ordered By: Alcides Moya on 11-12-2021 Globulin (S) [Mass/Vol] 3.7 g/dL [facility] Glucose Glucometer (BldC) [M ass/Vol]Ordered By: Alcides Moya on 11-12-2021 Glucose [Mass/Vol] 212 mg/dL [facility] Comment on above: Random Glucose Refer ence Range is dependent on time and content of last meal. Glucose of more than 200 mg/dL in a nonstressed, ambulatory subject supports the diagnosis of Diabetes Mellitus. Glucose Poct Glucometerson 0 11-12-2021 Glucose [Mass/Vol] 212 mg/dL Normal [facility] Comment on above: Result Comment: [place] Glucose Reference Range is dependent on time and content of last meal. Glucose of more than 200 mg/dL in a nonstressed, ambulatory subject supports the diagnosis of Diabetes Mellitus. PERFORMED BY: [facility] [address] PATHOLOGIST HOME THEATRE TECHNICIAN FLIP GERMAN M.D. Performed By: #### G LULS #### Point of Care testing , Glucose [Mass/Vol] 293 mg/dL Normal [facility] Comment on above: Result Comment: [place] Glucose Reference Range is dependent on time and content of last meal. Glucose of more than 200 mg/dL in a nonstressed, ambulatory subject supports the diagnosis of Diabetes Mellitus. PERFORMED BY: [address] [place] [address] PATHOLOGIST HOME THEATRE TECHNICIAN LFIP GERMAN M.D. Performed By: #### G LULS #### Point of Care testing , Commemt1 Glu2: Cleaned Meter [facility] Comment on above: Result Comment: PERF ORMED BY: [address] [place] [address] PATHOLOGIST HOME THEATRE TECHNICIAN FLIP GERMAN M.D. Performed By: #### G LULS #### Point of Care testing , Glucose [Mass/Vol] 204 mg/dL Normal [facility] Comment on above: Result Comment: [place] Glucose Reference Range is dependent on time and content of last meal. Glucose of more than 200 mg/dL in a nonstressed, ambulatory subject supports the diagnosis of Diabetes Mellitus. Performed By: #### G LULS #### Point of Care testing , Commemt1 Glu2: Cleaned Meter [facility] Comment on above: Result Comment: PERF ORMED BY: [address] [place] [id number] PATHOLOGIST HOME THEATRE TECHNICIAN FLIP GERMAN M.D. Performed By: #### G LULS #### Point of Care testing , Glucose [Mass/Vol] 188 mg/dL Normal [facility] Comment on above: Result Comment: [place] Glucose Reference Range is dependent on time and content of last meal. Glucose of more than 200 mg/dL in a nonstressed, ambulatory subject supports the diagnosis of Diabetes Mellitus. Performed By: #### G LULS #### Point of Care testing , Hematocrit Auto (Bld) [Volum e fraction]Ordered By: Alcides Moya on 11-12-2021 Hematocrit (Bld) [Volume fraction] 38.9 % 34.0-46.4 [facility] Laboratory - CoagulationOrde red By: Alcides Moya on 11-12-2021 PT Coag (PPP) [Time] 34.1 s 9.0-12.9 [facility] Laboratory - Hematology and Cell countsOrdered By: Alcides Moya on 11-12-2021 Nucleated RBC/100 WBC (Bld) [Ratio] 0.0 % 0-0.5 [facility] Lymphocytes Auto (Bld) [#/Vo l]Ordered By: Alcides Moya on 11-12-2021 Lymphocytes (Bld) [#/Vol] 2.0 10*3/uL 1.00-4.8 [facility] Lymphocytes/100 WBC Auto (Bl d)Ordered By: Alcides Moya on 11-12-2021 Lymphocytes/100 WBC (Bld) 39.7 % . [facility] MCH Auto (RBC) [Entitic mass ]Ordered By: Alcides Moya on 11-12-2021 MCH (RBC) [Entitic mass] 29.2 pg 24.7-34.3 [facility] MCHC Auto (RBC) [Mass/Vol]Or dered By: Alcides Moya on 11-12-2021 MCHC (RBC) [Mass/Vol] 32.2 g/dL 32.0-35.0 [facility] MCV Auto (RBC) [Entitic vol] Ordered By: Alcides Moya on 11-12-2021 MCV (RBC) [Entitic vol] 90.6 fL 80-100 [facility] Monocytes Auto (Bld) [#/Vol] Ordered By: Alcides Moya on 11-12-2021 Monocytes (Bld) [#/Vol] 0.5 10*3/uL 0.0-0.8 [facility] Monocytes/100 WBC Auto (Bld) Ordered By: Alcides Moya on 11-12-2021 Monocytes/100 WBC (Bld) 10.1 % . [facility] Neutrophils Auto (Bld) [#/Vo l]Ordered By: Alcides Moya on 11-12-2021 Neutrophils (Bld) [#/Vol] 2.3 10*3/uL 1.8-7.7 [facility] Neutrophils/100 WBC Auto (Bl d)Ordered By: Alcides Moya on 11-12-2021 Neutrophils/100 WBC (Bld) 45.9 % . [facility] No Panel InformationOrdered By: Alcides Moya on 11-12-2021 Bedside Glucose Comment Glu2: cleaned meter [facility] Estimated GFR () > 60 mL/Min [facility] Comment on above: GFR estimated refere nce range: According to KDOQI guidelines, <60 ml/min/1.73m2 is sufficient to diagnose a patient with chronic kidney disease. Pharmacy Creatinine Clearance (Chem 64.44 [facility] Platelet mean volume Auto (B ld) [Entitic vol]Ordered By: Alcides Moya on 11-12-2021 Platelet mean volume (Bld) [Entitic vol] 8.6 fL 6.3-10.7 [facility] Platelet poor plasma interna tional normalized ratio (INR) by coagulation assay (relatOrdered By: Alcides Moya on 11-12-2021 INR Coag (PPP) [Relative time] 3.0 {INR} [facility] Comment on above: INR Therapeutic Rang [...] 11-12-2021 Platelets (Bld) [#/Vol] 241 10*3/uL 150-450 [facility] Prealbuminon 11-12-2021 Prealbumin [Mass/Vol] 21.7 mg/dL Normal 18.0-38.0 [facility] Comment on above: Result Comment: PERF ORMED BY: [facility] [address] [place] [address] PATHOLOGIST HOME THEATRE TECHNICIAN FLIP GERMAN M.D. Performed By: #### G LUCOLLIN #### Point of Care testing , Protein [Mass/volume] in Ser um or PlasmaOrdered By: Alcides Moya on 11-12-2021 Protein [Mass/Vol] 6.8 g/dL 6.1-7.9 [facility] Prothrombin Time INRon 11-12 INR Coag (PPP) [Relative time] 3.0 {INR} Normal [facility] Comment on above: Order Comment: List [...] heart valves: 3 - 4.5 PERFORMED BY: [facility] [address] [place] [address] PATHOLOGIST HOME THEATRE TECHNICIAN FLIP GERMAN M.D. Performed By: #### G IAN #### Point of Care testing , PT Coag (PPP) [Time] 34.1 s High 9.0-12.9 [facility] Comment on above: Order Comment: List the anticoagulant: COUMADIN/WARFARIN Performed By: #### G IAN #### Point of Care testing , RBC Auto (Bld) [#/Vol]Ordere d By: Alcides Moya on 11-12-2021 RBC (Bld) [#/Vol] 4.29 10*6/uL 3.60-5.00 [facility] Serum or plasma alanine engel otransferase measurement without P-5'-P (enzymatic activiOrdered By: Alcides Moya on 11-12-2021 ALT No additional P-5'-P [Catalytic activity/Vol] 13 U/L 10-60 [facility] Serum or plasma albumin/glob ulin mass ratioOrdered By: Alcides Moya on 11-12-2021 Albumin/Globulin [Mass ratio] 0.8 {ratio} [facility] Serum or plasma alkaline bouchra sphatase measurement (enzymatic activity/volume)Ordered By: Alcides Moya on 11-12-2021 ALP [Catalytic activity/Vol] 84 U/L 32-92 [facility] Serum or plasma anion gap de terminationOrdered By: Alcides Moya on 11-12-2021 Anion gap [Moles/Vol] 11.9 mmol/L 6.0-15.0 [facility] Serum or plasma aspartate am inotransferase measurement (enzymatic activity/volume)Ordered By: Alcides Moya on 11-12-2021 AST [Catalytic activity/Vol] 22 U/L 10-42 [facility] Serum or plasma calcium alondra urement (mass/volume)Ordered By: Alcides Moya on 11-12-2021 Calcium [Mass/Vol] 9.2 mg/dL 8.2-10.2 [facility] Serum or plasma chloride link surement (moles/volume)Ordered By: Alcides Moya on 11-12-2021 Chloride [Moles/Vol] 100 mmol/L 95-114 [facility] Serum or plasma glucose alondra urement (mass/volume)Ordered By: Alcides Moya on 11-12-2021 Glucose [Mass/Vol] 130 mg/dL 70-100 [facility] Comment on above: ADA recommended refe rence range Random Glucose Reference Range is dependent on time and content of last meal. Glucose of more than 200 mg/dL in a nonstressed, ambulatory subject supports the diagnosis of Diabetes Mellitus. Serum or plasma potassium me asurement (moles/volume)Ordered By: Alcides Moya on 11-12-2021 Potassium [Moles/Vol] 3.9 mmol/L 3.5-5.1 [facility] Serum or plasma prealbumin m easurement (mass/volume)Ordered By: Alcides Moya on 11-12-2021 Prealbumin [Mass/Vol] 21.7 mg/dL 18.0-38.0 [facility] Serum or plasma sodium measu rement (moles/volume)Ordered By: Alcides Moya on 11-12-2021 Sodium [Moles/Vol] 139 mmol/L 136-146 [facility] Serum or plasma total biliru bin measurement (mass/volume)Ordered By: Alcides Moya on 11-12-2021 Bilirubin [Mass/Vol] 0.8 mg/dL 0.3-1.2 [facility] Serum or plasma total carbon dioxide measurement (moles/volume)Ordered By: Alcides Moya on 11-12-2021 CO2 [Moles/Vol] 31.0 mmol/L 22.0-30.0 [facility] Serum or plasma urea nitroge n measurement (mass/volume)Ordered By: Alcides Moya on 11-12-2021 Urea nitrogen [Mass/Vol] 8 mg/dL 9- [facility] Glucose Glucometer (BldC) [M ass/Vol]Ordered By: Gaye Claire on 11-11-2021 Glucose [Mass/Vol] 127 mg/dL [facility] Comment on above: Random Glucose Refer ence Range is dependent on time and content of last meal. Glucose of more than 200 mg/dL in a nonstressed, ambulatory subject supports the diagnosis of Diabetes Mellitus. Glucose Poct Glucometerson 0 11-11-2021 Glucose [Mass/Vol] 168 mg/dL Normal [facility] Comment on above: Result Comment: [place] Glucose Reference Range is dependent on time and content of last meal. Glucose of more than 200 mg/dL in a nonstressed, ambulatory subject supports the diagnosis of Diabetes Mellitus. PERFORMED BY: [facility] [address] [place] [address] PATHOLOGIST HOME THEATRE TECHNICIAN FLIP GERMAN M.D. Performed By: #### G LULS #### Point of Care testing , Commemt1 Glu2: Cleaned Meter [facility] Comment on above: Result Comment: PERF ORMED BY: [facility] [address] [place] [address] PATHOLOGIST HOME THEATRE TECHNICIAN FLIP GERMAN M.D. Performed By: #### G LULS #### Point of Care testing , Glucose [Mass/Vol] 127 mg/dL Normal [facility] Comment on above: Result Comment: [place] Glucose Reference Range is dependent on time and content of last meal. Glucose of more than 200 mg/dL in a nonstressed, ambulatory subject supports the diagnosis of Diabetes Mellitus. Performed By: #### G LULS #### Point of Care testing , Commemt1 Glu2: Cleaned Meter [facility] Comment on above: Result Comment: PERF ORMED BY: [facility] [address] [place] [id number] PATHOLOGIST HOME THEATRE TECHNICIAN FLIP GERMAN M.D. Performed By: #### G LULS ####Point of Care testing, Glucose [Mass/Vol] 228 mg/dL Normal [facility] Comment on above: Result Comment: [place] Glucose Reference Range is dependent on time and content of last meal. Glucose of more than 200 mg/dL in a nonstressed, ambulatory subject supports the diagnosis of Diabetes Mellitus. Performed By: #### G LULS ####Point of Care testing, Commemt1 Glu2: Cleaned Meter [facility] Comment on above: Result Comment: PERF ORMED BY: [facility] [address] [place] [address] PATHOLOGIST HOME THEATRE TECHNICIAN FLIP GERMAN M.D. Performed By: #### G LULS #### Point of Care testing , Glucose [Mass/Vol] 150 mg/dL Normal [facility] Comment on above: Result Comment: [place] Glucose Reference Range is dependent on time and content of last meal. Glucose of more than 200 mg/dL in a nonstressed, ambulatory subject supports the diagnosis of Diabetes Mellitus. Performed By: #### G LULS #### Point of Care testing , Laboratory - CoagulationOrde red By: Enrrique Mota on 11-11-2021 PT Coag (PPP) [Time] 31.5 s 9.0-12.9 [facility] No Panel InformationOrdered By: Gaye Claire on 11-11-2021 Bedside Glucose Comment Glu2: cleaned meter [facility] Platelet poor plasma interna tional normalized ratio (INR) by coagulation assay (relatOrdered By: Enrrique Mota on 11-11-2021 INR Coag (PPP) [Relative time] 2.7 {INR} [facility] Comment on above: INR Therapeutic Rang [...] Coag (PPP) [Relative time] 2.7 {INR} Normal [facility] Comment on above: Result Comment: INR [...] heart valves: 3 - 4.5 PERFORMED BY: [address] [place] [address] PATHOLOGIST HOME THEATRE TECHNICIAN FLIP GERMAN M.D. Performed By: #### G LUCOLLIN #### Point of Care testing , PT Coag (PPP) [Time] 31.5 s High 9.0-12.9 [facility] Comment on above: Performed By: #### G LULS #### Point of Care testing , Glucose Poct Glucometerson 0 11-10-2021 Glucose [Mass/Vol] 124 mg/dL Normal [facility] Comment on above: Result Comment: [place] Glucose Reference Range is dependent on time and content of last meal. Glucose of more than 200 mg/dL in a nonstressed, ambulatory subject supports the diagnosis of Diabetes Mellitus. PERFORMED BY: [facility] [address] [place] [address] PATHOLOGIST HOME THEATRE TECHNICIAN FLIP GERMAN M.D. Performed By: #### G LULS #### Point of Care testing , Commemt1 Glu2: Cleaned Meter [facility] Comment on above: Result Comment: PERF ORMED BY: [address] [place] [address] PATHOLOGIST HOME THEATRE TECHNICIAN FLIP GERMAN M.D. Performed By: #### G LULS #### Point of Care testing , Glucose [Mass/Vol] 143 mg/dL Normal [facility] Comment on above: Result Comment: [place] Glucose Reference Range is dependent on time and content of last meal. Glucose of more than 200 mg/dL in a nonstressed, ambulatory subject supports the diagnosis of Diabetes Mellitus. Performed By: #### G LULS #### Point of Care testing , Commemt1 Glu2: Cleaned Meter [facility] Comment on above: Result Comment: PERF ORMED BY: [address] [place] [address] PATHOLOGIST HOME THEATRE TECHNICIAN FLIP GERMAN M.D. Performed By: #### G LULS #### Point of Care testing , Glucose [Mass/Vol] 190 mg/dL Normal [facility] Comment on above: Result Comment: [place] Glucose Reference Range is dependent on time and content of last meal. Glucose of more than 200 mg/dL in a nonstressed, ambulatory subject supports the diagnosis of Diabetes Mellitus. Performed By: #### G LULS #### Point of Care testing , Commemt1 Glu2: Cleaned Meter [facility] Comment on above: Result Comment: PERF ORMED BY: [address] [place] [address] PATHOLOGIST HOME THEATRE TECHNICIAN FLIP GERMAN M.D. Performed By: #### G LULS #### Point of Care testing , Glucose [Mass/Vol] 136 mg/dL Normal [facility] Comment on above: Result Comment: [place] Glucose Reference Range is dependent on time and content of last meal. Glucose of more than 200 mg/dL in a nonstressed, ambulatory subject supports the diagnosis of Diabetes Mellitus. Performed By: #### G LULS #### Point of Care testing , Prothrombin Time INRon 11-10 INR Coag (PPP) [Relative time] 2.5 {INR} Normal [facility] Comment on above: Result Comment: INR [...] heart valves: 3 - 4.5 PERFORMED BY: [address] [place] [address] PATHOLOGIST HOME THEATRE TECHNICIAN FLIP GERMAN M.D. Performed By: #### G LULS #### Point of Care testing , PT Coag (PPP) [Time] 28.4 s High 9.0-12.9 [facility] Comment on above: Performed By: #### G LULS #### Point of Care testing , Glucose Poct Glucometerson 0 11-09-2021 Commemt1 Glu2: Cleaned Meter [facility] Comment on above: Result Comment: PERF ORMED BY: [address] [place] [address] PATHOLOGIST HOME THEATRE TECHNICIAN FLIP GERMAN M.D. Performed By: #### G LULS #### Point of Care testing , Glucose [Mass/Vol] 165 mg/dL Normal [facility] Comment on above: Result Comment: [facility] Glucose Reference Range is dependent on time and content of last meal. Glucose of more than 200 mg/dL in a nonstressed, ambulatory subject supports the diagnosis of Diabetes Mellitus. Performed By: #### G LULS #### Point of Care testing , Commemt1 Glu2: Cleaned Meter [facility] Comment on above: Result Comment: PERF ORMED BY: [address] [address] PATHOLOGIST HOME THEATRE TECHNICIAN FLIP GERMAN M.D. Performed By: #### G LULS #### Point of Care testing , Glucose [Mass/Vol] 156 mg/dL Normal [facility] Comment on above: Result Comment: [place] Glucose Reference Range is dependent on time and content of last meal. Glucose of more than 200 mg/dL in a nonstressed, ambulatory subject supports the diagnosis of Diabetes Mellitus. Performed By: #### G LULS #### Point of Care testing , Glucose [Mass/Vol] 257 mg/dL Normal [facility] Comment on above: Result Comment: [place] Glucose Reference Range is dependent on time and content of last meal. Glucose of more than 200 mg/dL in a nonstressed, ambulatory subject supports the diagnosis of Diabetes Mellitus. PERFORMED BY: [address] [place] [address] PATHOLOGIST HOME THEATRE TECHNICIAN FLIP GERMAN M.D. Performed By: #### G LULS #### Point of Care testing , Glucose [Mass/Vol] 142 mg/dL Normal [facility] Comment on above: Result Comment: [place] Glucose Reference Range is dependent on time and content of last meal. Glucose of more than 200 mg/dL in a nonstressed, ambulatory subject supports the diagnosis of Diabetes Mellitus. PERFORMED BY: [address] [place] [address] PATHOLOGIST HOME THEATRE TECHNICIAN FLIP GERMAN M.D. Performed By: #### G LULS #### Point of Care testing , Prothrombin Time INRon 11-09 INR Coag (PPP) [Relative time] 2.7 {INR} Normal [facility] Comment on above: Result Comment: INR [...] heart valves: 3 - 4.5 PERFORMED BY: [facility] [address] [place] [address] PATHOLOGIST HOME THEATRE TECHNICIAN FLIP GERMAN M.D. Performed By: #### G LULS #### Point of Care testing , PT Coag (PPP) [Time] 30.5 s High 9.0-12.9 [facility] Comment on above: Performed By: #### G LULS #### Point of Care testing , Glucose Poct Glucometerson 0 11-08-2021 Glucose [Mass/Vol] 180 mg/dL Normal [facility] Comment on above: Result Comment: [place] Glucose Reference Range is dependent on time and content of last meal. Glucose of more than 200 mg/dL in a nonstressed, ambulatory subject supports the diagnosis of Diabetes Mellitus. PERFORMED BY: [address] [place] [address] PATHOLOGIST HOME THEATRE TECHNICIAN FLIP GERMAN M.D. Performed By: #### G LULS #### Point of Care testing , Glucose [Mass/Vol] 161 mg/dL Normal [facility] Comment on above: Result Comment: [facility] Glucose Reference Range is dependent on time and content of last meal. Glucose of more than 200 mg/dL in a nonstressed, ambulatory subject supports the diagnosis of Diabetes Mellitus. PERFORMED BY: [address] [place] [address] PATHOLOGIST HOME THEATRE TECHNICIAN FLIP GERMAN M.D. Performed By: #### G LULS #### Point of Care testing , Glucose [Mass/Vol] 193 mg/dL Normal [facility] Comment on above: Result Comment: [facility] Glucose Reference Range is dependent on time and content of last meal. Glucose of more than 200 mg/dL in a nonstressed, ambulatory subject supports the diagnosis of Diabetes Mellitus. PERFORMED BY: [address] [place] [address] PATHOLOGIST HOME THEATRE TECHNICIAN FLIP GERMAN M.D. Performed By: #### G LULS #### Point of Care testing , Commemt1 Glu2: Cleaned Meter Normal [facility] Comment on above: Result Comment: PERF ORMED BY: [facility] [address] [place] [id number] PATHOLOGIST HOME THEATRE TECHNICIAN FLIP GERMAN M.D. Performed By: #### G LULS #### Point of Care testing , Glucose [Mass/Vol] 155 mg/dL Normal [facility] Comment on above: Result Comment: [place] Glucose Reference Range is dependent on time and content of last meal. Glucose of more than 200 mg/dL in a nonstressed, ambulatory subject supports the diagnosis of Diabetes Mellitus. Performed By: #### G LULS #### Point of Care testing , Prothrombin Time INRon 11-08 INR Coag (PPP) [Relative time] 2.9 {INR} Normal [facility] Comment on above: Result Comment: INR [...] heart valves: 3 - 4.5 PERFORMED BY: [address] [place] [address] PATHOLOGIST HOME THEATRE TECHNICIAN FLIP GERMAN M.D. Performed By: #### G LULS #### Point of Care testing , PT Coag (PPP) [Time] 33.0 s High 9.0-12.9 [facility] Comment on above: Performed By: #### G LULS #### Point of Care testing , Glucose Poct Glucometerson 0 11-07-2021 Commemt1 Glu2: Cleaned Meter [facility] Comment on above: Result Comment: PERF ORMED BY: [facility] [address] [place] [address] PATHOLOGIST HOME THEATRE TECHNICIAN FLIP GERMAN M.D. Performed By: #### G LULS #### Point of Care testing , Glucose [Mass/Vol] 183 mg/dL Normal [facility] Comment on above: Result Comment: [place] Glucose Reference Range is dependent on time and content of last meal. Glucose of more than 200 mg/dL in a nonstressed, ambulatory subject supports the diagnosis of Diabetes Mellitus. Performed By: #### G LULS #### Point of Care testing , Commemt1 Glu2: Cleaned Meter [facility] Comment on above: Result Comment: PERF ORMED BY: [facility] [address] [place] [id number] PATHOLOGIST HOME THEATRE TECHNICIAN FLIP GERMAN M.D. Performed By: #### G LULS #### Point of Care testing , Glucose [Mass/Vol] 154 mg/dL Normal [facility] Comment on above: Result Comment: [place] Glucose Reference Range is dependent on time and content of last meal. Glucose of more than 200 mg/dL in a nonstressed, ambulatory subject supports the diagnosis of Diabetes Mellitus. Performed By: #### G LULS #### Point of Care testing , Commemt1 Glu2: Cleaned Meter Normal [facility] Comment on above: Result Comment: PERF ORMED BY: [facility] [address] [place] [address] PATHOLOGIST HOME THEATRE TECHNICIAN FLIP GERMAN M.D. Performed By: #### G LULS #### Point of Care testing , Glucose [Mass/Vol] 339 mg/dL Normal [facility] Comment on above: Result Comment: [place] Glucose Reference Range is dependent on time and content of last meal. Glucose of more than 200 mg/dL in a nonstressed, ambulatory subject supports the diagnosis of Diabetes Mellitus. Performed By: #### G LULS #### Point of Care testing , Glucose [Mass/Vol] 146 mg/dL Normal [facility] Comment on above: Result Comment: [place] Glucose Reference Range is dependent on time and content of last meal. Glucose of more than 200 mg/dL in a nonstressed, ambulatory subject supports the diagnosis of Diabetes Mellitus. PERFORMED BY: [address] [place] [address] PATHOLOGIST HOME THEATRE TECHNICIAN FLIP GERMAN M.D. Performed By: #### G LULS #### Point of Care testing , Prothrombin Time INRon 11-07 INR Coag (PPP) [Relative time] 2.0 {INR} Normal [facility] Comment on above: Result Comment: INR [...] heart valves: 3 - 4.5 PERFORMED BY: [facility] [address] [place] [address] PATHOLOGIST HOME THEATRE TECHNICIAN FLIP GERMAN M.D. Performed By: #### G LULS #### Point of Care testing , PT Coag (PPP) [Time] 22.8 s High 9.0-12.9 [facility] Comment on above: Performed By: #### G LULS #### Point of Care testing , Basic Metabolic Panelon 10-13 Calcium [Mass/Vol] 9.1 mg/dL Normal 8.2-10.2 [facility] Comment on above: Performed By: #### G LULS #### Point of Care testing , Chloride [Moles/Vol] 98 mmol/L Normal 95-114 [facility] Comment on above: Performed By: #### G LULS #### Point of Care testing , CO2 [Moles/Vol] 33.3 mmol/L High 22.0-30.0 [facility] Comment on above: Performed By: #### G LULS #### Point of Care testing , Creatinine [Mass/Vol] 0.63 mg/dL Normal 0.44-1.03 [facility] Comment on above: Performed By: #### G LULS #### Point of Care testing , Creatinine Clr Calc Pharmacy 65.08 [facility] Comment on above: Result Comment: PERF ORMED BY: [facility] [address] [place] [address] PATHOLOGIST HOME THEATRE TECHNICIAN FLIP GERMAN M.D. Performed By: #### G LULS #### Point of Care testing , Estimated GFR ( Trista > 60 [facility] Comment on above: Result Comment: GFR estimated reference range: According to KDOQI guidelines, <60 ml/min/1.73m2 is sufficient to diagnose a patient with chronic kidney disease. Performed By: #### G LULS #### Point of Care testing , Estimated GFR (Non- Am > 60 Normal [facility] Comment on above: Performed By: #### G LULS #### Point of Care testing , Glucose [Mass/Vol] 159 mg/dL High 70-100 [facility] Comment on above: Result Comment: [place] Glucose Reference Range is dependent on time and content of last meal. Glucose of more than 200 mg/dL in a nonstressed, ambulatory subject supports the diagnosis of Diabetes Mellitus. ADA recommended reference range Performed By: #### G LULS #### Point of Care testing , Potassium [Moles/Vol] 3.3 mmol/L Low 3.5-5.1 [facility] Comment on above: Performed By: #### G LULS #### Point of Care testing , Sodium [Moles/Vol] 140 mmol/L Normal 136-146 [facility] Comment on above: Performed By: #### G LULS #### Point of Care testing , Urea nitrogen [Mass/Vol] 6 mg/dL Low 9-23 [facility] Comment on above: Performed By: #### G GELACIOLS #### Point of Care testing , Basophils Auto (Bld) [#/Vol] Ordered By: Faustina Barr on 11-06-2021 Basophils (Bld) [#/Vol] 0.0 10*3/uL 0.0-0.2 [facility] Basophils/100 WBC Auto (Bld) Ordered By: Faustina Barr on 11-06-2021 Basophils/100 WBC (Bld) 0.5 % . [facility] Blood hemoglobin measurement (mass/volume)Ordered By: Faustina Barr on 11-06-2021 Hemoglobin (Bld) [Mass/Vol] 11.8 g/dL 11.8-15.4 [facility] Blood leukocytes automated c ount (number/volume)Ordered By: Faustina Barr on 11-06-2021 WBC (Bld) [#/Vol] 5.6 10*3/uL 4.5-11.0 [facility] Complete Blood Count Auto Di ffon 11-06-2021 Basophils (Bld) [#/Vol] 0.0 10*3/uL Normal 0.0-0.2 [facility] Comment on above: Result Comment: PERF ORMED BY: [facility] [place] [address] PATHOLOGIST HOME THEATRE TECHNICIAN FLIP GERMAN M.D. Performed By: #### G LULS #### Point of Care testing , Basophils/100 WBC (Bld) 0.5 % Normal . [facility] Comment on above: Performed By: #### G LULS #### Point of Care testing , Eosinophils (Bld) [#/Vol] 0.2 10*3/uL Normal 0.0-0.45 [facility] Comment on above: Performed By: #### G LULS #### Point of Care testing , Eosinophils/100 WBC (Bld) 3.9 % Normal . [facility] Comment on above: Performed By: #### G LULS #### Point of Care testing , Erythrocyte distribution width (RBC) [Ratio] 16.6 % High 11.9-15.3 [facility] Comment on above: Performed By: #### G LULS #### Point of Care testing , Hematocrit (Bld) [Volume fraction] 37.0 % Normal 34.0-46.4 [facility] Comment on above: Performed By: #### G LULS #### Point of Care testing , Hemoglobin (Bld) [Mass/Vol] 11.8 g/dL Normal 11.8-15.4 [facility] Comment on above: Performed By: #### G LULS #### Point of Care testing , Lymphocytes (Bld) [#/Vol] 2.1 10*3/uL Normal 1.00-4.8 [facility] Comment on above: Performed By: #### G LULS #### Point of Care testing , Lymphocytes/100 WBC (Bld) 37.6 % Normal . [facility] Comment on above: Performed By: #### G LULS #### Point of Care testing , MCH (RBC) [Entitic mass] 28.8 pg Normal 24.7-34.3 [facility] Comment on above: Performed By: #### Ezra SOSA #### Point of Care testing , MCV (RBC) [Entitic vol] 90.5 fL Normal 80-100 [facility] Comment on above: Performed By: #### Ezra SOSA #### Point of Care testing , Mean Corpuscular HGB Conc 31.9 g/dL Low 32.0-35.0 [facility] Comment on above: Performed By: #### Ezra BRIZUELALS #### Point of Care testing , Monocytes (Bld) [#/Vol] 0.7 10*3/uL Normal 0.0-0.8 [facility] Comment on above: Performed By: #### Ezra SOSA #### Point of Care testing , Monocytes/100 WBC (Bld) 12.7 % Normal . [facility] Comment on above: Performed By: #### Ezra SOSA #### Point of Care testing , Neutrophils (Bld) [#/Vol] 2.5 10*3/uL Normal 1.8-7.7 [facility] Comment on above: Performed By: #### Ezra SOSA #### Point of Care testing , Neutrophils/100 WBC (Bld) 45.3 % Normal . [facility] Comment on above: Performed By: #### Ezra SOSA #### Point of Care testing , Nucleated RBC/100 WBC (Bld) [Ratio] 0.1 % Normal 0-0.5 [facility] Comment on above: Performed By: #### Ezra SOSA #### Point of Care testing , Platelet mean volume (Bld) [Entitic vol] 8.3 fL Normal 6.3-10.7 [facility] Comment on above: Performed By: #### Ezra SOSA #### Point of Care testing , Platelets (Bld) [#/Vol] 298 10*3/uL Normal 150-450 [facility] Comment on above: Performed By: #### Ezra SOSA #### Point of Care testing , RBC (Bld) [#/Vol] 4.09 10*6/uL Normal 3.60-5.00 [facility] Comment on above: Performed By: #### G LULS #### Point of Care testing , WBC (Bld) [#/Vol] 5.6 10*3/uL Normal 4.5-11.0 [facility] Comment on above: Performed By: #### G LULS #### Point of Care testing , Creatinine and Glomerular fi ltration rate.predicted panel (S/P/Bld)Ordered By: Faustina Barr on 11-06-2021 Creatinine [Mass/Vol] 0.63 mg/dL 0.44-1.03 [facility] Eosinophils Auto (Bld) [#/Vo l]Ordered By: Faustina Barr on 11-06-2021 Eosinophils (Bld) [#/Vol] 0.2 10*3/uL 0.0-0.45 [facility] Eosinophils/100 WBC Auto (Bl d)Ordered By: Faustina Barr on 11-06-2021 Eosinophils/100 WBC (Bld) 3.9 % . [facility] Erythrocyte distribution wid th Auto (RBC) [Ratio]Ordered By: Faustina Barr on 11-06-2021 Erythrocyte distribution width (RBC) [Ratio] 16.6 % 11.9-15.3 [facility] Estimated glomerular filtrat ion rate (GFR) non- AmericanOrdered By: Faustina Barr on 11-06-2021 GFR/1.73 sq M.predicted among non-blacks MDRD (S/P/Bld) [Vol rate/Area] > 60 mL/Min [facility] Glucose Poct Glucometerson 0 11-06-2021 Commemt1 Glu2: Cleaned Meter Normal [facility] Comment on above: Result Comment: PERF ORMED BY: [facility] [address] [place] [address] PATHOLOGIST HOME THEATRE TECHNICIAN FLIP GERMAN M.D. Performed By: #### G LULS #### Point of Care testing , Glucose [Mass/Vol] 175 mg/dL Normal [facility] Comment on above: Result Comment: [place] Glucose Reference Range is dependent on time and content of last meal. Glucose of more than 200 mg/dL in a nonstressed, ambulatory subject supports the diagnosis of Diabetes Mellitus. Performed By: #### G LULS #### Point of Care testing , Commemt1 Glu2: Cleaned Meter Normal [facility] Comment on above: Result Comment: PERF ORMED BY: [address] [place] [address] PATHOLOGIST HOME THEATRE TECHNICIAN FLIP GERMAN M.D. Performed By: #### G LULS #### Point of Care testing , Glucose [Mass/Vol] 141 mg/dL Normal [facility] Comment on above: Result Comment: [place] Glucose Reference Range is dependent on time and content of last meal. Glucose of more than 200 mg/dL in a nonstressed, ambulatory subject supports the diagnosis of Diabetes Mellitus. Performed By: #### G LULS #### Point of Care testing , Glucose [Mass/Vol] 171 mg/dL Normal [facility] Comment on above: Result Comment: [place] Glucose Reference Range is dependent on time and content of last meal. Glucose of more than 200 mg/dL in a nonstressed, ambulatory subject supports the diagnosis of Diabetes Mellitus. PERFORMED BY: [facility] [address] [place] [address] PATHOLOGIST HOME THEATRE TECHNICIAN FLIP GERMAN M.D. Performed By: #### G LULS #### Point of Care testing , Glucose [Mass/Vol] 139 mg/dL Normal [facility] Comment on above: Result Comment: [place] Glucose Reference Range is dependent on time and content of last meal. Glucose of more than 200 mg/dL in a nonstressed, ambulatory subject supports the diagnosis of Diabetes Mellitus. PERFORMED BY: [address] [place] [address] PATHOLOGIST HOME THEATRE TECHNICIAN FLIP GERMAN M.D. Performed By: #### G LULS #### Point of Care testing , Hematocrit Auto (Bld) [Volum e fraction]Ordered By: Faustina Barr on 11-06-2021 Hematocrit (Bld) [Volume fraction] 37.0 % 34.0-46.4 [facility] Laboratory - Hematology and Cell countsOrdered By: Faustina Barr on 11-06-2021 Nucleated RBC/100 WBC (Bld) [Ratio] 0.1 % 0-0.5 [facility] Lymphocytes Auto (Bld) [#/Vo l]Ordered By: Faustina Barr on 11-06-2021 Lymphocytes (Bld) [#/Vol] 2.1 10*3/uL 1.00-4.8 [facility] Lymphocytes/100 WBC Auto (Bl d)Ordered By: Faustina Brar on 11-06-2021 Lymphocytes/100 WBC (Bld) 37.6 % . [facility] MCH Auto (RBC) [Entitic mass ]Ordered By: Faustina Barr on 11-06-2021 MCH (RBC) [Entitic mass] 28.8 pg 24.7-34.3 [facility] MCHC Auto (RBC) [Mass/Vol]Or dered By: Faustina Barr on 11-06-2021 MCHC (RBC) [Mass/Vol] 31.9 g/dL 32.0-35.0 [facility] MCV Auto (RBC) [Entitic vol] Ordered By: Faustina Barr on 11-06-2021 MCV (RBC) [Entitic vol] 90.5 fL 80-100 [facility] Monocytes Auto (Bld) [#/Vol] Ordered By: Faustina Barr on 11-06-2021 Monocytes (Bld) [#/Vol] 0.7 10*3/uL 0.0-0.8 [facility] Monocytes/100 WBC Auto (Bld) Ordered By: Faustina Barr on 11-06-2021 Monocytes/100 WBC (Bld) 12.7 % . [facility] Neutrophils Auto (Bld) [#/Vo l]Ordered By: Faustina Barr on 11-06-2021 Neutrophils (Bld) [#/Vol] 2.5 10*3/uL 1.8-7.7 [facility] Neutrophils/100 WBC Auto (Bl d)Ordered By: Faustina Barr on 11-06-2021 Neutrophils/100 WBC (Bld) 45.3 % . [facility] No Panel InformationOrdered By: Faustina Barr on 11-06-2021 Estimated GFR () > 60 mL/Min [facility] Comment on above: GFR estimated refere nce range: According to KDOQI guidelines, <60 ml/min/1.73m2 is sufficient to diagnose a patient with chronic kidney disease. Pharmacy Creatinine Clearance (Chem 65.08 [facility] Platelet mean volume Auto (B ld) [Entitic vol]Ordered By: Faustina Barr on 11-06-2021 Platelet mean volume (Bld) [Entitic vol] 8.3 fL 6.3-10.7 [facility] Platelets Auto (Bld) [#/Vol] Ordered By: Faustina Barr on 11-06-2021 Platelets (Bld) [#/Vol] 298 10*3/uL 150-450 [facility] Prothrombin Time INRon 11-06 INR Coag (PPP) [Relative time] 1.3 {INR} Normal [facility] Comment on above: Result Comment: INR [...] heart valves: 3 - 4.5 PERFORMED BY: [place] [address] [place] [address] PATHOLOGIST HOME THEATRE TECHNICIAN FLIP GERMAN M.D. Performed By: #### G IAN #### Point of Care testing , PT Coag (PPP) [Time] 14.4 s High 9.0-12.9 [facility] Comment on above: Performed By: #### G IAN #### Point of Care testing , RBC Auto (Bld) [#/Vol]Ordere d By: Faustina Barr on 11-06-2021 RBC (Bld) [#/Vol] 4.09 10*6/uL 3.60-5.00 [facility] Serum or plasma calcium alondra urement (mass/volume)Ordered By: Faustina Barr on 11-06-2021 Calcium [Mass/Vol] 9.1 mg/dL 8.2-10.2 [facility] Serum or plasma chloride link surement (moles/volume)Ordered By: Faustina Barr on 11-06-2021 Chloride [Moles/Vol] 98 mmol/L 95-114 [facility] Serum or plasma glucose alondra urement (mass/volume)Ordered By: Faustina Barr on 11-06-2021 Glucose [Mass/Vol] 159 mg/dL 70-100 [facility] Comment on above: ADA recommended refe [...] on 11-06-2021 Potassium [Moles/Vol] 3.3 mmol/L 3.5-5.1 [facility] Serum or plasma sodium measu rement (moles/volume)Ordered By: Faustina Barr on 11-06-2021 Sodium [Moles/Vol] 140 mmol/L 136-146 [facility] Serum or plasma total carbon dioxide measurement (moles/volume)Ordered By: Faustina Barr on 11-06-2021 CO2 [Moles/Vol] 33.3 mmol/L 22.0-30.0 [facility] Serum or plasma urea nitroge n measurement (mass/volume)Ordered By: Faustina aBrr on 11-06-2021 Urea nitrogen [Mass/Vol] 6 mg/dL 9-23 [facility] Urine culture routineOrdered By: Marvin Peter on 11-06-2021 Bacteria identified Cx Nom (U) Escherichia coli [facility] Glucose Poct Glucometerson 0 11-05-2021 Commemt1 Glu2: Cleaned Meter Normal [facility] Comment on above: Result Comment: PERF ORMED BY: [place] [id number] PATHOLOGIST HOME THEATRE TECHNICIAN FLIP GERMAN M.D. Performed By: #### G LULS #### Point of Care testing , Glucose [Mass/Vol] 202 mg/dL Normal [facility] Comment on above: Result Comment: [place] Glucose Reference Range is dependent on time and content of last meal. Glucose of more than 200 mg/dL in a nonstressed, ambulatory subject supports the diagnosis of Diabetes Mellitus. Performed By: #### G LULS #### Point of Care testing , MR lumbar spine wo conon MR lumbar spine wo con [facility] Main [place] [address] [place] [address] MRI Report Signed Patient: Alton Barker MR#: [id number] 987 : 1940 Acct:[id number] Age/Sex: 81 / F ADM Date: 11/04/21 Loc: Room: [address] [place] [address] Type: ADM INOo Attending Dr: Enrrique Mota [...] Vijay Holden M.D.11/05/2021 12:14 PM Dictation Location: [place] [address] Transcribed By: [facility] 11/05/21 1214 Dictated By: Vijay Holden II, MD 11/05/21 1209 Signed By: 11/05/21 1214 [facility] Prothrombin Time INRon 11-05 INR Coag (PPP) [Relative time] 1.8 {INR} [facility] Comment on above: Result Comment: INR Therapeutic [...] heart valves: 3 - 4.5 PERFORMED BY: [facility] [place] [address] PATHOLOGIST HOME THEATRE TECHNICIAN FLIP GERMAN M.D. Performed By: #### G IAN #### Point of Care testing , PT Coag (PPP) [Time] 20.0 s High 9.0-12.9 [facility] Comment on above: Performed By: #### G IAN #### Point of Care testing , Albumin [Mass/volume] in Ser um or PlasmaOrdered By: Marvin Peter on 11-04-2021 Albumin [Mass/Vol] 3.4 g/dL 3.2-5.5 [facility] Automated erythrocytes count in urine sediment (number/area)Ordered By: Marvin Peter on 11-04-2021 RBC Auto (Urine sed) [#/Area] Innumerable [HPF] 0-4 [facility] Automated leukocytes count i n urine sediment (number/area)Ordered By: Marvin Peter on 11-04-2021 WBC Auto (Urine sed) [#/Area] 50-100 [HPF] 0-4 [facility] Automated urine hyaline cast s count (number/volume)Ordered By: Marvin Peter on 11-04-2021 Hyaline casts Auto (U) [#/Vol] Rare [LPF] 0-1 [facility] Bilirubin Test strip Ql (U)O rdered By: Marvin Peter on 11-04-2021 Bilirubin Ql (U) Negative Negative [facility] COVID CepheidOrdered By: Artie Peter on 11-04-2021 SARS-CoV-2 (COVID-19) Ab IA Ql Negative Negative [facility] Comment on above: This is a duplicate Cepheid Xpert Xpress CoV-2/Flu/RSV Plus RNA by RT-PCR result to be used for statistical tracking purpose only. SARS-CoV-2 (COVID-19) RNA PIPE+probe Ql (Unsp spec) [facility] COVID-19 / Flu A/B / RSV [...] or Cepheid Disclaimer revoked sooner. PERFORMED BY: [facility] [place] [address] PATHOLOGIST HOME THEATRE TECHNICIAN FLIP GERMAN M.D. [facility] Comment on above: Performed By: #### G IAN #### Point of Care testing , COVID-19 [...] developed and its performance characteristic determined by [employer] and validated at [facility]. This test has not been FDA [...] for SARS Antigen by [facility] PERFORMED BY: [facility] [address] [place] [address] PATHOLOGIST HOME THEATRE TECHNICIAN FLIP GERMAN M.D. Normal [facility] Comment on above: Performed By: #### G IAN #### Point of Care testing , COVID-19 SOFIAOrdered By: Sina Peter on 11-04-2021 SARS-CoV+SARS-CoV-2 (COVID-19) Ag IA.rapid Ql (Resp) Negative Negative [facility] Comment on above: This is a duplicate Evita SARS Antigen ([facility]) result to be used for statistical tracking purpose only. CT cervical spine wo conon 0 11-04-2021 CT cervical spine wo con [facility] [place] [address] CT Scan Report Signed Patient: Alton Barker MR#: [id number] 987 : 1940 Acct:[id number] Age/Sex: 81 / F ADM Date: 11/04/21 Loc: ER Room: Type: [facility] ER Attending Dr: Copies to: Marvin Peter [...] Baltazar Saucedo M.D.11/04/2021 5:55 PM Dictation Location: [place] [address] Transcribed By: [facility] 11/04/211754 Dictated By: Baltazar Saucedo DO 11/04/211752 Signed By: 11/04/211754 [facility] CT head/brain wo conon 11-04 CT head/brain wo con [facility] Main [address] [address] [address] Scan Report Signed Patient: Alton Barker MR#: [id number] 987 : 1940 Acct:[id number] Age/Sex: 81 / F ADM Date: 11/04/21 Loc: ER Room: Type: [facility] ER Attending Dr: Copies to: Marvin Peter [...] Baltazar Saucedo M.D.11/04/2021 5:52 PM Dictation Location: [place] [address] Transcribed By: [facility] 11/04/211751 Dictated By: Baltazar Saucedo DO 11/04/211747 Signed By: 11/04/211751 [facility] CT lumbar spine wo [facility] CT lumbar spine wo [facility] [place] [address] CT Scan Report Signed Patient: Alton Barker MR#: [id number] 987 : 1940 Acct:[id number] Age/Sex: 81 / F ADM Date: 11/04/21 Loc: ER Room: Type: [facility] ER Attending Dr: Copies to: Marvin Peter [...] Baltazar Saucedo M.D.11/04/2021 6:06 PM Dictation Location: [place] [address] Transcribed By: [facility] 11/04/211805 Dictated By: Baltazar Saucedo DO 11/04/211800 Signed By: 11/04/211805 Normal [facility] CT thoracic spine wo conon 0 11-04-2021 CT thoracic spine wo con [facility] [place] [address] CT Scan Report Signed Patient: Alton Barker MR#: [id number] 987 : 1940 Acct:[id number] Age/Sex: 81 / F ADM Date: 11/04/21 Loc: ER Room: Type: [facility] ER Attending Dr: Copies to: Marvin Peter [...] Baltazar Saucedo M.D.11/04/2021 6:00 PM Dictation Location: [place] [address] Transcribed By: [facility] 11/04/21 1800 Dictated By: Baltazar Saucedo DO 11/04/21 1758 Signed By: 11/04/21 1800 Normal [facility] Casts typing in urine sedime nt by light microscopyOrdered By: Marvin Peter on 11-04-2021 Casts LM Nom (Urine sed) None seen [LPF] None Seen [facility] Cepheid COVID PCR Negativeon 11-04-2021 SARS-CoV-2 (COVID-19) RNA PIPE+probe Ql (Unsp spec) Negative Normal Negative [facility] Comment on above: Result Comment: This is a duplicate Cepheid Xpert Xpress CoV-2/Flu/RSV Plus RNA by RT-PCR result to be used for statistical tracking purpose only. PERFORMED BY: [facility] [address] [place] [address] PATHOLOGIST HOME THEATRE TECHNICIAN FLIP GERMAN M.D. Performed By: #### G LULS #### Point of Care testing , Color Auto (U)Ordered By: Sina Peter on 11-04-2021 Color (U) Yellow Yellow [facility] Complete Blood Count Auto Di ffon 11-04-2021 Basophils (Bld) [#/Vol] 0.0 10*3/uL Normal 0.0-0.2 [facility] Comment on above: Result Comment: PERF ORMED BY: [facility] [address] [place] [address] PATHOLOGIST HOME THEATRE TECHNICIAN FLIP GERMAN M.D. Performed By: #### C MP, CBC ####[facility] [address] [place] [address] [facility] Basophils/100 WBC (Bld) 0.6 % Normal . [facility] Comment on above: Performed By: #### C MP, CBC ####[address] Eosinophils (Bld) [#/Vol] 0.1 10*3/uL Normal 0.0-0.45 [facility] Comment on above: Performed By: #### C MP, CBC ####[address] Eosinophils/100 WBC (Bld) 1.7 % Normal . [facility] Comment on above: Performed By: #### C MP, CBC ####[address] Erythrocyte distribution width (RBC) [Ratio] 16.3 % High 11.9-15.3 [facility] Comment on above: Performed By: #### C MP, CBC ####[address] Hematocrit (Bld) [Volume fraction] 39.2 % Normal 34.0-46.4 [facility] Comment on above: Performed By: #### C MP, CBC ####[address] Hemoglobin (Bld) [Mass/Vol] 12.8 g/dL Normal 11.8-15.4 [facility] Comment on above: Performed By: #### C MP, CBC ####[address] Lymphocytes (Bld) [#/Vol] 1.6 10*3/uL Normal 1.00-4.8 [facility] Comment on above: Performed By: #### C MP, CBC ####[address] Lymphocytes/100 WBC (Bld) 20.3 % Normal . [facility] Comment on above: Performed By: #### C MP, CBC ####[address] MCH (RBC) [Entitic mass] 29.2 pg Normal 24.7-34.3 [facility] Comment on above: Performed By: #### C MP, CBC ####[address] MCV (RBC) [Entitic vol] 89.5 fL Normal 80-100 [facility] Comment on above: Performed By: #### C MP, CBC ####[address] Mean Corpuscular HGB Conc 32.6 g/dL Normal 32.0-35.0 [facility] Comment on above: Performed By: #### C MP, CBC ####[address] Monocytes (Bld) [#/Vol] 0.8 10*3/uL Normal 0.0-0.8 [facility] Comment on above: Performed By: #### C MP, CBC ####[address] Monocytes/100 WBC (Bld) 9.7 % Normal . [facility] Comment on above: Performed By: #### C MP, CBC ####[address] Neutrophils (Bld) [#/Vol] 5.3 10*3/uL Normal 1.8-7.7 [facility] Comment on above: Performed By: #### C MP, CBC ####[address] Neutrophils/100 WBC (Bld) 67.7 % Normal . [facility] Comment on above: Performed By: #### C MP, CBC ####[address] Nucleated RBC/100 WBC (Bld) [Ratio] 0.1 % Normal 0-0.5 [facility] Comment on above: Performed By: #### C MP, CBC ####[address] Platelet mean volume (Bld) [Entitic vol] 7.9 fL Normal 6.3-10.7 [facility] Comment on above: Performed By: #### C MP, CBC ####[address] [facility] Platelets (Bld) [#/Vol] 318 10*3/uL Normal 150-450 [facility] Comment on above: Performed By: #### C MP, CBC ####[place] [id number] [facility] RBC (Bld) [#/Vol] 4.38 10*6/uL Normal 3.60-5.00 [facility] Comment on above: Performed By: #### C MP, CBC ####[place] [id number] [facility] WBC (Bld) [#/Vol] 7.9 10*3/uL Normal 4.5-11.0 [facility] Comment on above: Performed By: #### C MP, CBC ####[place] [id number] [facility] Comprehensive Metabolic Pane loco 11-04-2021 Albumin [Mass/Vol] 3.4 g/dL Normal 3.2-5.5 [facility] Comment on above: Performed By: #### C MP, CBC ####[place] [id number] [facility] Albumin/Globulin [Mass ratio] 0.9 {ratio} Normal [facility] Comment on above: Performed By: #### C MP, CBC ####[place] [id number] [facility] ALP [Catalytic activity/Vol] 80 U/L Normal 32-92 [facility] Comment on above: Performed By: #### C MP, CBC ####[place] [id number] [facility] ALT [Catalytic activity/Vol] 7 U/L Low 10-60 [facility] Comment on above: Performed By: #### C MP, CBC ####[place] [id number] [facility] AST [Catalytic activity/Vol] 16 U/L Normal 10-42 [facility] Comment on above: Performed By: #### C MP, CBC ####[place] [id number] [facility] Bilirubin [Mass/Vol] 1.2 mg/dL Normal 0.3-1.2 [facility] Comment on above: Performed By: #### C MP, CBC ####[address] Calcium [Mass/Vol] 9.7 mg/dL Normal 8.2-10.2 [facility] Comment on above: Performed By: #### C MP, CBC ####[address] Chloride [Moles/Vol] 95 mmol/L Normal 95-114 [facility] Comment on above: Performed By: #### C MP, CBC ####[address] CO2 [Moles/Vol] 30.4 mmol/L High 22.0-30.0 [facility] Comment on above: Performed By: #### C MP, CBC ####[address] Creatinine [Mass/Vol] 0.61 mg/dL Normal 0.44-1.03 [facility] Comment on above: Performed By: #### C MP, CBC ####[place] [id number] [facility] Creatinine Clr Calc Pharmacy 64.44 Normal [facility] Comment on above: Result Comment: PERF ORMED BY: [facility] [address] [place] [address] PATHOLOGIST HOME THEATRE TECHNICIAN FLIP GERMAN M.D. Performed By: #### C MP, CBC ####[address] Estimated GFR ( Trista > 60 Normal [facility] Comment on above: Result Comment: GFR estimated reference range: According to KDOQI guidelines, <60 ml/min/1.73m2 is sufficient to diagnose a patient with chronic kidney disease. Performed By: #### C MP, CBC ####[address] [facility] Estimated GFR (Non- Am > 60 Normal [facility] Comment on above: Performed By: #### C MP, CBC ####[address] [facility] Globulin (S) [Mass/Vol] 3.7 g/dL [facility] Comment on above: Performed By: #### C MP, CBC ####[address] [facility] Glucose [Mass/Vol] 131 mg/dL High 70-100 [facility] Comment on above: Result Comment: [facility] Glucose Reference Range is dependent on time and content of last meal. Glucose of more than 200 mg/dL in a nonstressed, ambulatory subject supports the diagnosis of Diabetes Mellitus. ADA recommended reference range Performed By: #### C MP, CBC ####[address] [facility] Potassium [Moles/Vol] 3.8 mmol/L Normal 3.5-5.1 [facility] Comment on above: Performed By: #### C MP, CBC ####[address] [facility] Protein [Mass/Vol] 7.1 g/dL Normal 6.1-7.9 [facility] Comment on above: Performed By: #### C MP, CBC ####[address] [facility] Sodium [Moles/Vol] 137 mmol/L Normal 136-146 [facility] Comment on above: Performed By: #### C MP, CBC ####[address] [facility] Urea nitrogen [Mass/Vol] 14 mg/dL Normal 9-23 [facility] Comment on above: Performed By: #### C MP, CBC ####[address] [place] [address] [facility] Dipstick and Microscopicon 0 11-04-2021 Appearance (U) Cloudy Critically abnormal Clear [facility] Comment on above: Order Comment: Name Collection Type:: Voided Performed By: #### G LULS #### Point of Care testing , Bacteria,Urine 4+ High None Seen [facility] Comment on above: Order Comment: Name Collection Type:: Voided Performed By: #### G LULS #### Point of Care testing , Bilirubin,Urine Negative Normal Negative [facility] Comment on above: Order Comment: Name Collection Type:: Voided Performed By: #### G LULS #### Point of Care testing , Color (U) Yellow Normal Yellow [facility] Comment on above: Order Comment: Name Collection Type:: Voided Performed By: #### G LULS #### Point of Care testing , Glucose Ql (U) Normal Normal Normal [facility] Comment on above: Order Comment: Name Collection Type:: Voided Performed By: #### G LULS #### Point of Care testing , Hyaline Casts,Urine Rare Normal 0-1 [facility] Comment on above: Order Comment: Name Collection Type:: Voided Performed By: #### G LULS #### Point of Care testing , Ketones Ql (U) 1+ High Negative [facility] Comment on above: Order Comment: Name Collection Type:: Voided Performed By: #### G LULS #### Point of Care testing , Leukocyte esterase Test strip Ql (U) 3+ High Negative [facility] Comment on above: Order Comment: Name Collection Type:: Voided Performed By: #### G LULS #### Point of Care testing , Nitrite,Urine Positive High Negative [facility] Comment on above: Order Comment: Name Collection Type:: Voided Performed By: #### G LULS #### Point of Care testing , Occult Blood,Urine 3+ High Negative [facility] Comment on above: Order Comment: Name Collection Type:: Voided Result Comment: PERF ORMED BY: [facility] [address] [place] [address] PATHOLOGIST HOME THEATRE TECHNICIAN FLIP GERMAN M.D. Performed By: #### G LULS #### Point of Care testing , Other Casts,Urine None Seen Normal None Seen [facility] Comment on above: Order Comment: Name Collection Type:: Voided Result Comment: PERF ORMED BY: [facility] [place] [address] PATHOLOGIST HOME THEATRE TECHNICIAN FLIP GERMAN M.D. Performed By: #### G LULS #### Point of Care testing , pH (U) 5.5 [pH] Normal 5.0-9.0 [facility] Comment on above: Order Comment: Name Collection Type:: Voided Performed By: #### G LULS #### Point of Care testing , Protein (U) [Mass/Vol] 30 mg/dL High Negative [facility] Comment on above: Order Comment: Name Collection Type:: Voided Performed By: #### G LULS #### Point of Care testing , RBC,Urine Innumerable High 0-4 [facility] Comment on above: Order Comment: Name Collection Type:: Voided Performed By: #### G LULS #### Point of Care testing , Specificy [place],Urine 1.029 Normal 1.001-1.03 0 [facility] Comment on above: Order Comment: Name Collection Type:: Voided Performed By: #### G LULS #### Point of Care testing , Squamous Epithelial Cell,Urine 5-9 High 0-2 [facility] Comment on above: Order Comment: Name Collection Type:: Voided Performed By: #### G LULS #### Point of Care testing , Urobilinogen,Urine Normal Normal Normal [facility] Comment on above: Order Comment: Name Collection Type:: Voided Performed By: #### G LULS #### Point of Care testing , WBC,Urine 50-100 High 0-4 [facility] Comment on above: Order Comment: Name Collection Type:: Voided Performed By: #### G LULS #### Point of Care testing , Globulin Calc (S) [Mass/Vol] Ordered By: Marvin Peter on 11-04-2021 Globulin (S) [Mass/Vol] 3.7 g/dL [facility] Ketones Auto test strip (U) [Mass/Vol]Ordered By: Marvin Peter on 11-04-2021 Ketones (U) [Mass/Vol] 1+ Negative [facility] Nitrite Test strip Ql (U)Ord ered By: Marvin Peter on 11-04-2021 Nitrite Ql (U) Positive Negative [facility] No Panel InformationOrdered By: Enrrique Mota on 11-04-2021 25-Hydroxy Vitamin D Total 71.4 ng/mL 30-100 [facility] Comment on above: VITAMIN D STATUS 25( [place])VITAMIN D RANGE (ng/mL) Deficient <20 Insufficient 20 to <30 Sufficient 30 to 100 Reference: Ken Rene, Yoandy PEDERSEN, et al. Evaluation,treatment, and prevention of vitamin D deficiency; an Endocrine Society clinical practice guideline. JCEM. 2010; 96(7):1911-30. VITAMIN D STATUS 25( [place])VITAMIN D RANGE (ng/mL) Deficient <20 Insufficient 20 to <30Sufficient 30 to 100Reference: Ken Rene, Yoandy PEDERSEN, et al. Evaluation,treatment, and prevention of vitamin D deficiency; an Endocrine Society clinical practice guideline. JCEM. 2010; 96(7):1911-30. Protein Auto test strip (U) [Mass/Vol]Ordered By: Marvin Peter on 11-04-2021 Protein (U) [Mass/Vol] 30 mg/dL Negative [facility] Protein [Mass/volume] in Ser um or PlasmaOrdered By: Marvin Peter on 11-04-2021 Protein [Mass/Vol] 7.1 g/dL 6.1-7.9 [facility] Prothrombin Time INRon 11-04 INR Coag (PPP) [Relative time] 8.2 {INR} Off scale high [facility] Comment on above: Result Comment: Crit [...] heart valves: 3 - 4.5 PERFORMED BY: [facility] [address] [place] [address] PATHOLOGIST HOME THEATRE TECHNICIAN FLIP GERMAN M.D. Performed By: #### G LULS #### Point of Care testing , PT Coag (PPP) [Time] 96.2 s High 9.0-12.9 [facility] Comment on above: Performed By: #### G LULS #### Point of Care testing , Serum or plasma alanine engel otransferase measurement without P-5'-P (enzymatic activiOrdered By: Marvin Peter on 11-04-2021 ALT No additional P-5'-P [Catalytic activity/Vol] 7 U/L 10-60 [facility] Serum or plasma albumin/glob ulin mass ratioOrdered By: Marvin Peter on 11-04-2021 Albumin/Globulin [Mass ratio] 0.9 {ratio} [facility] Serum or plasma alkaline bouchra sphatase measurement (enzymatic activity/volume)Ordered By: Marvin Peter on 11-04-2021 ALP [Catalytic activity/Vol] 80 U/L 32-92 [facility] Serum or plasma aspartate am inotransferase measurement (enzymatic activity/volume)Ordered By: Marvin Peter on 11-04-2021 AST [Catalytic activity/Vol] 16 U/L 10-42 [facility] Serum or plasma total biliru bin measurement (mass/volume)Ordered By: Marvin Peter on 11-04-2021 Bilirubin [Mass/Vol] 1.2 mg/dL 0.3-1.2 [facility] Evita Ag Negativeon 11-05-19 Evita Ag Negative Negative Normal Negative [facility] Comment on above: Result Comment: This is a duplicate Evita SARS Antigen (LAMONT) result to be used for statistical tracking purpose only. PERFORMED BY: [facility] [address] [place] [address] PATHOLOGIST HOME THEATRE TECHNICIAN FLIP GERMAN M.D. Performed By: #### G IAN #### Point of Care testing , Specific gravity Auto test s trip (U) [Rel density]Ordered By: Marvin Peter on 11-04-2021 Specific gravity (U) [Rel density] 1.029 1.001-1.03 0 [facility] Squamous epithelial cells de tection in urine sediment by light microscopyOrdered By: Marvin Peter on 11-04-2021 Epithelial cells.squamous LM Ql (Urine sed) 5-9 [HPF] 0-2 [facility] TSH DL <= 0.005 mIU/L QnOrde red By: Enrrique Mota on 11-04-2021 TSH Qn 2.09 m[IU]/L 0.45-5.33 [facility] Thyroid Stimulating Hormoneo n 11-04-2021 TSH Qn 2.09 m[IU]/L Normal 0.45-5.33 [facility] Comment on above: Order Comment: Bobby melendez addon Result Comment: PERF ORMED BY: [facility] [address] [place] [address] PATHOLOGIST HOME THEATRE TECHNICIAN FLIP GERMAN M.D. Performed By: #### G IAN #### Point of Care testing , Urine Cultureon 11-04-2021 Bacteria identified Cx Nom (U) ORGANISM: Escherichia coli (O:ESCCOL) Hammett Count >100,000 Aerobic JIMMY Charge (NUC86) SUSCEPTIBILITY [...] RESISTANT TO ALL B-LACTAM DRUGS. PERFORMED BY: [facility] [address] [place] [address] PATHOLOGIST HOME THEATRE TECHNICIAN FLIP GERMAN M.D. [facility] Comment on above: Performed By: #### G LULS #### Point of Care testing , Urine bacteria detection by automated methodOrdered By: Marvin Peter on 11-04-2021 Bacteria Auto Ql (U) 4+ None Seen [facility] Urine clarity by refractomet ry automatedOrdered By: Marvin Peter on 11-04-2021 Clarity Refractometry automated (U) Cloudy Clear [facility] Urine glucose measurement by automated test strip (mass/volume)Ordered By: Marvin Peter on 11-04-2021 Glucose Auto test strip (U) [Mass/Vol] Normal mg/dL Normal [facility] Urine hemoglobin detection b y automated test stripOrdered By: Marvin Peter on 11-04-2021 Hemoglobin Auto test strip Ql (U) 3+ Negative [facility] Urine leukocyte esterase det ection by automated test stripOrdered By: Marvin Peter on 11-04-2021 Leukocyte esterase Auto test strip Ql (U) 3+ Negative [facility] Urobilinogen Auto test strip (U) [Mass/Vol]Ordered By: Marvin Peter on 11-04-2021 Urobilinogen (U) [Mass/Vol] Normal mg/dL Normal [facility] Vitamin D 25 Hydroxy Totalon 11-04-2021 Vitamin D 25 Hydroxy Total 71.4 ng/mL Normal 30-100 [facility] Comment on above: Order Comment: Comme nt addon Result Comment: FREDERIC MIN D STATUS 25(OH)VITAMIN D RANGE (ng/mL) Deficient <20 Insufficient 20 to <30 Sufficient 30 to 100 Reference: Earl MF,Ken NC, Yoandy PEDERSEN, et al. Evaluation,treatment, and prevention of vitamin D deficiency; an Endocrine Society clinical practice guideline. JCEM. 2010; 96(7):1911-30. PERFORMED BY: [place] [address] PATHOLOGIST HOME THEATRE TECHNICIAN FLIP GERMAN M.D. Performed By: #### V [id number] ####[facility] [id number] [place] [address] [facility] pH Auto test strip (U)Ordere d By: Marvin Peter on 11-04-2021 pH (U) 5.5 [pH] 5.0-9.0 [facility] Prothrombin Time INRon 10-22 INR Coag (PPP) [Relative time] 4.5 {INR} [facility] [employer] Other Prothrombin Time INR [facility] Fanmin[employer] Other CT head/brain wo conon 10-20 CT head/brain wo con [facility] [place] [address] [place], [place] [id number] CT Scan Report Signed Patient: Alton Barker MR#: [id number] 987 : 1940 Acct:[id number] Age/Sex: 81 / F ADM Date: 10/19/21 Loc: ER Room: Type: [facility] ER Attending Dr: Copies to: Holger Dorado [...] Vijay Holden M.D.10/20/2021 8:09 AM Dictation Location: [place] [address] Transcribed By: [facility] 10/20/21808 Dictated By: Vijay Holden II, MD 10/20/21805 Signed By: 10/20/21808 Normal [facility] XR lumbar spine 2-3V*on XR lumbar spine 2-3V* [facility] [place] [address] [place] [address] XRay Report Signed Patient: Alton Barker MR#: [id number] 987 : 1940 Acct:[id number] Age/Sex: 81 / F ADM Date: 10/19/21 Loc: ER Room: Type: [facility] ER Attending Dr: Copies to: Holger Dorado [...] Vijay Holden M.D.10/20/2021 8:11 AM Dictation Location: [place] [address] Transcribed By: SHERINE 10/20/21 08 Dictated By: Vijay Holden II, MD 10/20/21 0809 Signed By: 10/20/21 08 Normal [facility] Urine culture routineOrdered By: Sumanth Lowe on 09-30-2021 Bacteria identified Cx Nom (U) Escherichia coli [facility] Prothrombin Time INRon 09-29 INR Coag (PPP) [Relative time] 3.3 {INR} [facility] [employer] Other Prothrombin Time INR [facility] [employer] Other Automated erythrocytes count in urine sediment (number/area)Ordered By: Sumanth Lowe on 09-28-2021 RBC Auto (Urine sed) [#/Area] 10-19 [HPF] 0-4 [facility] Automated leukocytes count i n urine sediment (number/area)Ordered By: Sumanth Lowe on 09-28-2021 WBC Auto (Urine sed) [#/Area] 20-49 [HPF] 0-4 [facility] Basophils Auto (Bld) [#/Vol] Ordered By: Sumanth Lowe on 09-28-2021 Basophils (Bld) [#/Vol] 0.0 10*3/uL 0.0-0.2 [facility] Basophils/100 WBC Auto (Bld) Ordered By: Sumanth Lowe on 09-28-2021 Basophils/100 WBC (Bld) 0.4 % . [facility] Bilirubin Test strip Ql (U)O rdered By: Sumanth Lowe on 09-28-2021 Bilirubin Ql (U) Negative Negative [facility] Blood hemoglobin measurement (mass/volume)Ordered By: Sumanth Lowe on 09-28-2021 Hemoglobin (Bld) [Mass/Vol] 12.3 g/dL 11.8-15.4 [facility] Blood leukocytes automated c ount (number/volume)Ordered By: Sumanthraffy Lowe on 09-28-2021 WBC (Bld) [#/Vol] 5.1 10*3/uL 4.5-11.0 [facility] Body fluid albumin measureme nt (mass/volume)Ordered By: Sumanth Lowe on 09-28-2021 Albumin (Body fld) [Mass/Vol] 3.3 g/dL 3.2-5.5 [facility] Color Auto (U)Ordered By: Giuseppe Lowe on 09-28-2021 Color (U) Yellow Yellow [facility] Complete Blood Count Auto Di ffon 09-28-2021 Basophils (Bld) [#/Vol] 0.0 10*3/uL Normal 0.0-0.2 [facility] Comment on above: Result Comment: PERF ORMED BY: [facility] [address] [place] [address] PATHOLOGIST HOME THEATRE TECHNICIAN FLIP GERMAN M.D. Performed By: #### C CHEN, CMP ####[address] Basophils/100 WBC (Bld) 0.4 % Normal . [facility] Comment on above: Performed By: #### C BC, CMP ####[address] Eosinophils (Bld) [#/Vol] 0.0 10*3/uL Normal 0.0-0.45 [facility] Comment on above: Performed By: #### C BC, CMP ####[address] Eosinophils/100 WBC (Bld) 0.4 % Normal . [facility] Comment on above: Performed By: #### C BC, CMP ####[address] Erythrocyte distribution width (RBC) [Ratio] 15.9 % High 11.9-15.3 [facility] Comment on above: Performed By: #### C BC, CMP ####[address] Hematocrit (Bld) [Volume fraction] 37.5 % Normal 34.0-46.4 [facility] Comment on above: Performed By: #### C BC, CMP ####[address] Hemoglobin (Bld) [Mass/Vol] 12.3 g/dL Normal 11.8-15.4 [facility] Comment on above: Performed By: #### C BC, CMP ####[address] Lymphocytes (Bld) [#/Vol] 0.8 10*3/uL Low 1.00-4.8 [facility] Comment on above: Performed By: #### C BC, CMP ####[address] Lymphocytes/100 WBC (Bld) 16.2 % Normal . [facility] Comment on above: Performed By: #### C BC, CMP ####[address] MCH (RBC) [Entitic mass] 29.5 pg Normal 24.7-34.3 [facility] Comment on above: Performed By: #### C BC, CMP ####[address] MCV (RBC) [Entitic vol] 90.3 fL Normal 80-100 [facility] Comment on above: Performed By: #### C BC, CMP ####[place] [id number] [facility] Mean Corpuscular HGB Conc 32.7 g/dL Normal 32.0-35.0 [facility] Comment on above: Performed By: #### C BC, CMP ####[address] Monocytes (Bld) [#/Vol] 0.7 10*3/uL Normal 0.0-0.8 [facility] Comment on above: Performed By: #### C BC, CMP ####[address] [facility] Monocytes/100 WBC (Bld) 13.9 % Normal . [facility] Comment on above: Performed By: #### C BC, CMP ####[address] [facility] Neutrophils (Bld) [#/Vol] 3.5 10*3/uL Normal 1.8-7.7 [facility] Comment on above: Performed By: #### C BC, CMP ####[address] [facility] Neutrophils/100 WBC (Bld) 69.1 % Normal . [facility] Comment on above: Performed By: #### C BC, CMP ####[address] [facility] Nucleated RBC/100 WBC (Bld) [Ratio] 0.0 % Normal 0-0.5 [facility] Comment on above: Performed By: #### C BC, CMP ####[place] [id number] [facility] Platelet mean volume (Bld) [Entitic vol] 8.6 fL Normal 6.3-10.7 [facility] Comment on above: Performed By: #### C BC, CMP ####[address] [address] [place] Platelets (Bld) [#/Vol] 154 10*3/uL Normal 150-450 [facility] Comment on above: Performed By: #### C BC, CMP ####[address] [facility] RBC (Bld) [#/Vol] 4.16 10*6/uL Normal 3.60-5.00 [facility] Comment on above: Performed By: #### C BC, CMP ####[place] [id number] [place] WBC (Bld) [#/Vol] 5.1 10*3/uL Normal 4.5-11.0 [facility] Comment on above: Performed By: #### C BC, CMP ####[address] [facility] Comprehensive Metabolic Pane loco 09-28-2021 Albumin [Mass/Vol] 3.3 g/dL Normal 3.2-5.5 [facility] Comment on above: Performed By: #### C BC, CMP ####[place] [id number] [facility] Albumin/Globulin [Mass ratio] 0.9 {ratio} Normal [facility] Comment on above: Performed By: #### C CHEN, CMP ####[place] [id number] [facility] ALP [Catalytic activity/Vol] 51 U/L Normal 32-92 [facility] Comment on above: Performed By: #### C CHEN, CMP ####[place] [id number] [facility] ALT [Catalytic activity/Vol] 7 U/L Low 10-60 [facility] Comment on above: Performed By: #### C CHEN, CMP ####[place] [id number] [facility] AST [Catalytic activity/Vol] 20 U/L Normal 10-42 [facility] Comment on above: Performed By: #### C CHEN, CMP ####[place] [id number] [facility] Bilirubin [Mass/Vol] 1.0 mg/dL Normal 0.3-1.2 [facility] Comment on above: Performed By: #### C BC, CMP ####[place] [id number] [facility] Calcium [Mass/Vol] 8.9 mg/dL Normal 8.2-10.2 [facility] Comment on above: Performed By: #### C BC, CMP ####[place] [id number] [facility] Chloride [Moles/Vol] 95 mmol/L Normal 95-114 [facility] Comment on above: Performed By: #### C BC, CMP ####[place] [address] [place] [address] [facility] CO2 [Moles/Vol] 29.5 mmol/L Normal 22.0-30.0 [facility] Comment on above: Performed By: #### C BC, CMP ####[address] [facility] Creatinine [Mass/Vol] 0.67 mg/dL Normal 0.44-1.03 [facility] Comment on above: Performed By: #### C BC, CMP ####[address] [facility] Creatinine Clr Calc Pharmacy 66.85 [facility] Comment on above: Result Comment: PERF ORMED BY: [facility] [address] [place] [address] PATHOLOGIST HOME THEATRE TECHNICIAN FLIP GERMAN M.D. Performed By: #### C BC, CMP ####[address] [facility] Estimated GFR ( Trista > 60 [facility] Comment on above: Result Comment: GFR estimated reference range: According to KDOQI guidelines, <60 ml/min/1.73m2 is sufficient to diagnose a patient with chronic kidney disease. Performed By: #### C BC, CMP ####[place] [id number] [facility] Estimated GFR (Non- Am > 60 [facility] Comment on above: Performed By: #### C BC, CMP ####[address] [facility] Globulin (S) [Mass/Vol] 3.6 g/dL [facility] Comment on above: Performed By: #### C BC, CMP ####[place] [address] [place] [address] [facility] Glucose [Mass/Vol] 146 mg/dL High 70-100 [facility] Comment on above: Result Comment: [place] om Glucose Reference Range is dependent on time and content of last meal. Glucose of more than 200 mg/dL in a nonstressed, ambulatory subject supports the diagnosis of Diabetes Mellitus. ADA recommended reference range Performed By: #### C BC, CMP ####[facility] [id number] [place] [address] [facility] Potassium [Moles/Vol] 3.5 mmol/L Normal 3.5-5.1 [facility] Comment on above: Performed By: #### C BC, CMP ####[facility] [place] [address] [facility] Protein [Mass/Vol] 6.9 g/dL Normal 6.1-7.9 [facility] Comment on above: Performed By: #### C CHEN, CMP ####[facility] [place] [id number] [facility] Sodium [Moles/Vol] 136 mmol/L Normal 136-146 [facility] Comment on above: Performed By: #### C CHEN, CMP ####[facility] [place] [phone] [facility] Urea nitrogen [Mass/Vol] 7 mg/dL Low 9-23 [facility] Comment on above: Performed By: #### C CHEN, CMP ####[facility] [place] [id number] [facility] Creatinine and Glomerular fi ltration rate.predicted panel (S/P/Bld)Ordered By: Sumanth Lowe on 09-28-2021 Creatinine [Mass/Vol] 0.67 mg/dL 0.44-1.03 [facility] Dipstick and Microscopicon 0 09-28-2021 Appearance (U) Cloudy Critically abnormal Clear [facility] Comment on above: Order Comment: Name Collection Type:: Clean-Voided Midstream Performed By: #### G LULS #### Point of Care testing , Bacteria,Urine 3+ High None Seen [facility] Comment on above: Order Comment: Name Collection Type:: Clean-Voided Midstream Performed By: #### G LULS #### Point of Care testing , Bilirubin,Urine Negative Normal Negative [facility] Comment on above: Order Comment: Name Collection Type:: Clean-Voided Midstream Performed By: #### G LULS #### Point of Care testing , Color (U) Yellow Normal Yellow [facility] Comment on above: Order Comment: Name Collection Type:: Clean-Voided Midstream Performed By: #### G LULS #### Point of Care testing , Glucose Ql (U) Normal Normal Normal [facility] Comment on above: Order Comment: Name Collection Type:: Clean-Voided Midstream Performed By: #### G LULS #### Point of Care testing , Hyaline Casts,Urine 0-8 Normal 0-8 [facility] Comment on above: Order Comment: Name Collection Type:: Clean-Voided Midstream Performed By: #### G LULS #### Point of Care testing , Ketones Ql (U) 2+ High Negative [facility] Comment on above: Order Comment: Name Collection Type:: Clean-Voided Midstream Performed By: #### G LULS #### Point of Care testing , Leukocyte esterase Test strip Ql (U) 2+ High Negative [facility] Comment on above: Order Comment: Name Collection Type:: Clean-Voided Midstream Performed By: #### G LULS #### Point of Care testing , Nitrite,Urine Positive High Negative [facility] Comment on above: Order Comment: Name Collection Type:: Clean-Voided Midstream Performed By: #### G LULS #### Point of Care testing , Occult Blood,Urine 2+ High Negative [facility] Comment on above: Order Comment: Name Collection Type:: Clean-Voided Midstream Result Comment: PERF ORMED BY: [facility] [address] [place] [address] PATHOLOGIST HOME THEATRE TECHNICIAN FLIP GERMAN M.D. Performed By: #### G LULS #### Point of Care testing , pH (U) 6.5 [pH] Normal 5.0-9.0 [facility] Comment on above: Order Comment: Name Collection Type:: Clean-Voided Midstream Performed By: #### G LULS #### Point of Care testing , Protein,Urine Negative Normal Negative [facility] Comment on above: Order Comment: Name Collection Type:: Clean-Voided Midstream Performed By: #### G LULS #### Point of Care testing , RBC,Urine 10-19 High 0-4 [facility] Comment on above: Order Comment: Name Collection Type:: Clean-Voided Midstream Performed By: #### G LULS #### Point of Care testing , Specificy [place],Urine 1.013 Normal 1.001-1.03 0 [facility] Comment on above: Order Comment: Name Collection Type:: Clean-Voided Midstream Performed By: #### G LULS #### Point of Care testing , Squamous Epithelial Cell,Urine None Seen Normal 0-2 [facility] Comment on above: Order Comment: Name Collection Type:: Clean-Voided Midstream Performed By: #### G LULS #### Point of Care testing , Urobilinogen,Urine Normal Normal Normal [facility] Comment on above: Order Comment: Name Collection Type:: Clean-Voided Midstream Performed By: #### G LULS #### Point of Care testing , WBC,Urine 20-49 High 0-4 [facility] Comment on above: Order Comment: Name Collection Type:: Clean-Voided Midstream Performed By: #### G LULS #### Point of Care testing , Yeast,Urine None Seen Normal None Seen [facility] Comment on above: Order Comment: Name Collection Type:: Clean-Voided Midstream Result Comment: PERF ORMED BY: [place] [address] PATHOLOGIST HOME THEATRE TECHNICIAN FLIP GERMAN M.D. Performed By: #### G LULS #### Point of Care testing , ECG 12 lead ECGon 09-28-2021 ECG 12 lead ECG [facility] [place] [address] Electrocardiograph Report Signed Patient: Alton Barker MR#: [id number] 987 : 1940 Acct:[id number] Age/Sex: 81 / F ADM Date: 09/27/21 Loc: ER Room: Type: DEP ER Attending Dr: Ordering Provider: Sumanth Lowe [...] Signed By Sumanth Lowe DO 0601 Normal [facility] Eosinophils Auto (Bld) [#/Vo l]Ordered By: Sumanth Lowe on 09-28-2021 Eosinophils (Bld) [#/Vol] 0.0 10*3/uL 0.0-0.45 [facility] Eosinophils/100 WBC Auto (Bl d)Ordered By: Sumanth Lowe on 09-28-2021 Eosinophils/100 WBC (Bld) 0.4 % . [facility] Erythrocyte distribution wid th Auto (RBC) [Ratio]Ordered By: Sumanth Lowe on 09-28-2021 Erythrocyte distribution width (RBC) [Ratio] 15.9 % 11.9-15.3 [facility] Estimated glomerular filtrat ion rate (GFR) non- AmericanOrdered By: Sumanth Lowe on 09-28-2021 GFR/1.73 sq M.predicted among non-blacks MDRD (S/P/Bld) [Vol rate/Area] > 60 mL/Min [facility] Globulin Calc (S) [Mass/Vol] Ordered By: Sumanth Lowe on 09-28-2021 Globulin (S) [Mass/Vol] 3.6 g/dL [facility] Hematocrit Auto (Bld) [Volum e fraction]Ordered By: Sumanth Lowe on 09-28-2021 Hematocrit (Bld) [Volume fraction] 37.5 % 34.0-46.4 [facility] Ketones Auto test strip (U) [Mass/Vol]Ordered By: Sumanth Lowe on 09-28-2021 Ketones (U) [Mass/Vol] 2+ Negative [facility] Laboratory - Hematology and Cell countsOrdered By: Sumanth Lowe on 09-28-2021 Nucleated RBC/100 WBC (Bld) [Ratio] 0.0 % 0-0.5 [facility] - UrinalysisOrder ed By: Sumanth Lowe on 09-28-2021 Hyaline casts LM Ql (Urine sed) 0-8 [LPF] 0-8 [facility] Lymphocytes Auto (Bld) [#/Vo l]Ordered By: Sumanth Lowe on 09-28-2021 Lymphocytes (Bld) [#/Vol] 0.8 10*3/uL 1.00-4.8 [facility] Lymphocytes/100 WBC Auto (Bl d)Ordered By: Sumanth Lowe on 09-28-2021 Lymphocytes/100 WBC (Bld) 16.2 % . [facility] MCH Auto (RBC) [Entitic mass ]Ordered By: Sumanth Lowe on 09-28-2021 MCH (RBC) [Entitic mass] 29.5 pg 24.7-34.3 [facility] MCHC Auto (RBC) [Mass/Vol]Or dered By: Sumanth Lowe on 09-28-2021 MCHC (RBC) [Mass/Vol] 32.7 g/dL 32.0-35.0 [facility] MCV Auto (RBC) [Entitic vol] Ordered By: Sumanth Lowe on 09-28-2021 MCV (RBC) [Entitic vol] 90.3 fL 80-100 [facility] Monocytes Auto (Bld) [#/Vol] Ordered By: Sumanth Lowe on 09-28-2021 Monocytes (Bld) [#/Vol] 0.7 10*3/uL 0.0-0.8 [facility] Monocytes/100 WBC Auto (Bld) Ordered By: Sumanth Lowe on 09-28-2021 Monocytes/100 WBC (Bld) 13.9 % . [facility] Neutrophils Auto (Bld) [#/Vo l]Ordered By: Sumanth Lowe on 09-28-2021 Neutrophils (Bld) [#/Vol] 3.5 10*3/uL 1.8-7.7 [facility] Neutrophils/100 WBC Auto (Bl d)Ordered By: Sumanth Lowe on 09-28-2021 Neutrophils/100 WBC (Bld) 69.1 % . [facility] Nitrite Test strip Ql (U)Ord ered By: Sumanth Lowe on 09-28-2021 Nitrite Ql (U) Positive Negative [facility] No Panel InformationOrdered By: Sumanth Lowe on 09-28-2021 Estimated GFR () > 60 mL/Min [facility] Comment on above: GFR estimated refere nce range: According to KDOQI guidelines, <60 ml/min/1.73m2 is sufficient to diagnose a patient with chronic kidney disease. Pharmacy Creatinine Clearance (Chem 66.85 [facility] Platelet mean volume Auto (B ld) [Entitic vol]Ordered By: Sumanth Lowe on 09-28-2021 Platelet mean volume (Bld) [Entitic vol] 8.6 fL 6.3-10.7 [facility] Platelets Auto (Bld) [#/Vol] Ordered By: Sumanth Lowe on 09-28-2021 Platelets (Bld) [#/Vol] 154 10*3/uL 150-450 [facility] Protein Auto test strip (U) [Mass/Vol]Ordered By: Sumanth Lowe on 09-28-2021 Protein (U) [Mass/Vol] Negative Negative [facility] Protein [Mass/volume] in Ser um or PlasmaOrdered By: Sumanth Lowe on 09-28-2021 Protein [Mass/Vol] 6.9 g/dL 6.1-7.9 [facility] RBC Auto (Bld) [#/Vol]Ordere d By: Sumanth Lowe on 09-28-2021 RBC (Bld) [#/Vol] 4.16 10*6/uL 3.60-5.00 [facility] Serum or plasma alanine engel otransferase measurement without P-5'-P (enzymatic activiOrdered By: Sumanth Lowe on 09-28-2021 ALT No additional P-5'-P [Catalytic activity/Vol] 7 U/L 10-60 [facility] Serum or plasma albumin/glob ulin mass ratioOrdered By: Sumanth Lowe on 09-28-2021 Albumin/Globulin [Mass ratio] 0.9 {ratio} [facility] Serum or plasma alkaline bouchra sphatase measurement (enzymatic activity/volume)Ordered By: Sumanth Lowe on 09-28-2021 ALP [Catalytic activity/Vol] 51 U/L 32-92 [facility] Serum or plasma aspartate am inotransferase measurement (enzymatic activity/volume)Ordered By: Sumanth Lowe on 09-28-2021 AST [Catalytic activity/Vol] 20 U/L 10-42 [facility] Serum or plasma calcium alondra urement (mass/volume)Ordered By: Sumanth Lowe on 09-28-2021 Calcium [Mass/Vol] 8.9 mg/dL 8.2-10.2 [facility] Serum or plasma chloride link surement (moles/volume)Ordered By: Sumanth Lowe on 09-28-2021 Chloride [Moles/Vol] 95 mmol/L 95-114 [facility] Serum or plasma glucose alondra urement (mass/volume)Ordered By: Sumanth Lowe on 09-28-2021 Glucose [Mass/Vol] 146 mg/dL 70-100 [facility] Comment on above: ADA recommended refe rence range Random Glucose Reference Range is dependent on time and content of last meal. Glucose of more than 200 mg/dL in a nonstressed, ambulatory subject supports the diagnosis of Diabetes Mellitus. Serum or plasma potassium me asurement (moles/volume)Ordered By: Sumanth Lowe on 09-28-2021 Potassium [Moles/Vol] 3.5 mmol/L 3.5-5.1 [facility] Serum or plasma sodium measu rement (moles/volume)Ordered By: Sumanth Lowe on 09-28-2021 Sodium [Moles/Vol] 136 mmol/L 136-146 [facility] Serum or plasma total biliru bin measurement (mass/volume)Ordered By: Sumanth Lowe on 09-28-2021 Bilirubin [Mass/Vol] 1.0 mg/dL 0.3-1.2 [facility] Serum or plasma total carbon dioxide measurement (moles/volume)Ordered By: Sumanth Lowe on 09-28-2021 CO2 [Moles/Vol] 29.5 mmol/L 22.0-30.0 [facility] Serum or plasma urea nitroge n measurement (mass/volume)Ordered By: Sumanth Lowe on 09-28-2021 Urea nitrogen [Mass/Vol] 7 mg/dL 9-23 [facility] Specific gravity Auto test s trip (U) [Rel density]Ordered By: Sumanth Lowe on 09-28-2021 Specific gravity (U) [Rel density] 1.013 1.001-1.03 0 [facility] Squamous epithelial cells de tection in urine sediment by light microscopyOrdered By: Sumanth Lowe on 09-28-2021 Epithelial cells.squamous LM Ql (Urine sed) None seen [HPF] 0-2 [facility] Urine Cultureon 09-28-2021 Bacteria identified Cx Nom (U) ORGANISM: Escherichia coli (O:ESCCOL) Hammett Count >100,000 Aerobic JIMMY Charge (NUC86) SUSCEPTIBILITY [...] RESISTANT TO ALL B-LACTAM DRUGS. PERFORMED BY: [place] [address] PATHOLOGIST HOME THEATRE TECHNICIAN FLIP GERMAN M.D. Normal [facility] Comment on above: Performed By: #### G LULS #### Point of Care testing , Urine bacteria detection by automated methodOrdered By: Sumanth Lowe on 09-28-2021 Bacteria Auto Ql (U) 3+ None Seen [facility] Urine clarity by refractomet ry automatedOrdered By: Sumanth Lowe on 09-28-2021 Clarity Refractometry automated (U) Cloudy Clear [facility] Urine glucose measurement by automated test strip (mass/volume)Ordered By: Sumanth Lowe on 09-28-2021 Glucose Auto test strip (U) [Mass/Vol] Normal mg/dL Normal [facility] Urine hemoglobin detection b y automated test stripOrdered By: Sumanth Lowe on 09-28-2021 Hemoglobin Auto test strip Ql (U) 2+ Negative [facility] Urine leukocyte esterase det ection by automated test stripOrdered By: Sumanth Lowe on 09-28-2021 Leukocyte esterase Auto test strip Ql (U) 2+ Negative [facility] Urobilinogen Auto test strip (U) [Mass/Vol]Ordered By: Sumanth Lowe on 09-28-2021 Urobilinogen (U) [Mass/Vol] Normal mg/dL Normal [facility] XR chest 2V*on 09-28-2021 XR chest 2V* [facility] Main [address] [address] XRay Report Signed Patient: Alton Barker MR#: [id number] : 1940 Acct:[id number] Age/Sex: 81 / F ADM Date: 09/27/21 Loc: ER Room: Type: [facility] ER Attending Dr: Copies to: Sumanth Lowe [...] Malin Jr., D.OJoann09/28/2021 9:27 AM Dictation Location: [place] [address] Transcribed By: [facility] 09/28/21926 Dictated By: Alcides Malin Jr, DO 09/28/21926 Signed By: 09/28/21926 Normal [facility] Yeast detection in urine sed iment by light microscopyOrdered By: Sumanth Lowe on 09-28-2021 Yeast LM Ql (Urine sed) None seen [HPF] None Seen [facility] pH Auto test strip (U)Ordere d By: Sumanth Lowe on 09-28-2021 pH (U) 6.5 [pH] 5.0-9.0 [facility] Prothrombin Time INRon 08-26 INR Coag (PPP) [Relative time] 2.1 {INR} [facility] [employer] Other Prothrombin Time INR [facility] [employer] Other Prothrombin Time INRon 08-05 INR Coag (PPP) [Relative time] 2.3 {INR} [facility] [employer] Other Prothrombin Time INR [facility] [employer] Other Complete Blood Count with Au to Diffon 07-16-2021 Basophils (Bld) [#/Vol] 0.02 10*3/uL Normal 0.00-0.20 [facility] Academic Affairs Manager Comment on above: Performed By: #### L IPD, TSH, CMP, VITD, CBCAD #### [facility] [address] [place], [place] [id number] Basophils/100 WBC (Bld) 0.3 % Normal [facility] Academic Affairs Manager Comment on above: Performed By: #### L IPD, TSH, CMP, VITD, CBCAD #### [facility] [address] [place], [place] [id number] Eosinophils (Bld) [#/Vol] 0.17 10*3/uL Normal 0.02-0.50 [facility] Comment on above: Performed By: #### L IPD, TSH, CMP, VITD, CBCAD #### [facility] [address] [place], [place] [id number] Eosinophils/100 WBC (Bld) 2.8 % Normal [facility] Comment on above: Performed By: #### L IPD, TSH, CMP, VITD, CBCAD #### [facility] [address] [place], [place] [id number] Erythrocyte distribution width (RBC) [Ratio] 15.0 % Normal 11.0-15.0 [facility] Academic Affairs Manager Comment on above: Performed By: #### L IPD, TSH, CMP, VITD, CBCAD #### [facility] [address] [place], [place] [id number] Hematocrit (Bld) [Volume fraction] 39.2 % Normal 35.0-47.0 [facility] Academic Affairs Manager Comment on above: Performed By: #### L IPD, TSH, CMP, VITD, CBCAD #### [facility] [address] [place], [place] [id number] Hemoglobin (Bld) [Mass/Vol] 12.0 g/dL Normal 11.6-15.5 [facility] Academic Affairs Manager Comment on above: Performed By: #### L IPD, TSH, CMP, VITD, CBCAD #### [facility] [address] [place], [place] [id number] Lymphocytes (Bld) [#/Vol] 1.7 10*3/uL Normal 0.9-3.9 [facility] Comment on above: Performed By: #### L IPD, TSH, CMP, VITD, CBCAD #### [facility] [address] [place], [place] [id number] Lymphocytes/100 WBC (Bld) 27.5 % Normal [facility] Comment on above: Performed By: #### L IPD, TSH, CMP, VITD, CBCAD #### [facility] [address] [place], [place] [id number] MCH (RBC) [Entitic mass] 29.4 pg Normal 27.0-33.0 [facility] Comment on above: Performed By: #### L IPD, TSH, CMP, VITD, CBCAD #### [facility] [address] [place], [place] [id number] MCHC (RBC) [Mass/Vol] 30.6 g/dL Low 32.0-36.0 [facility] Comment on above: Performed By: #### L IPD, TSH, CMP, VITD, CBCAD #### [facility] [address] [place], [place] [id number] MCV (RBC) [Entitic vol] 96 fL Normal 80-100 [facility] Comment on above: Performed By: #### L IPD, TSH, CMP, VITD, CBCAD #### [facility] [address] [place], [place] [id number] Monocytes (Bld) [#/Vol] 0.6 10*3/uL Normal 0.2-0.9 [facility] Comment on above: Performed By: #### L IPD, TSH, CMP, VITD, CBCAD #### [facility] [address] [place], [place] [id number] Monocytes/100 WBC (Bld) 10.5 % Normal [facility] Comment on above: Performed By: #### L IPD, TSH, CMP, VITD, CBCAD #### [facility] [address] [place], [place] [id number] Neutrophils (Bld) [#/Vol] 3.6 10*3/uL Normal 1.5-7.8 [facility] Comment on above: Performed By: #### L IPD, TSH, CMP, VITD, CBCAD #### [facility] [address] [place], [place] [id number] Neutrophils/100 WBC (Bld) 58.6 % Normal [facility] Comment on above: Performed By: #### L IPD, TSH, CMP, VITD, CBCAD #### [facility] [address] [place], [place] [id number] Platelet mean volume (Bld) [Entitic vol] 11.40 fL Normal 7.50-12.50 [facility] Academic Affairs Manager Comment on above: Performed By: #### L IPD, TSH, CMP, VITD, CBCAD #### [facility] [address] [place], [place] [id number] Platelets (Bld) [#/Vol] 193 10*3/uL Normal 140-400 [facility] Comment on above: Performed By: #### L IPD, TSH, CMP, VITD, CBCAD #### [facility] [address] [place], [place] [id number] RBC (Bld) [#/Vol] 4.08 10*6/uL Normal 3.90-5.20 [facility] Specialist Comment on above: Performed By: #### L IPD, TSH, CMP, VITD, CBCAD #### [facility] [address] [place], [place] [id number] RDW-SD 52.8 fL High 37.0-50.0 [facility] Comment on above: Performed By: #### L IPD, TSH, CMP, VITD, CBCAD #### [facility] [address] [place], [place] [id number] WBC (Bld) [#/Vol] 6.1 10*3/uL Normal 3.8-11.0 [facility] Academic Affairs Manager Comment on above: Performed By: #### L IPD, TSH, CMP, VITD, CBCAD #### [facility] [address] [place], [place] [id number] Comprehensive Metabolic [facility] 07-16-2021 Albumin [Mass/Vol] 4.1 g/dL Normal 3.6-5.1 [facility] Academic Affairs Manager Comment on above: Performed By: #### L IPD, TSH, CMP, VITD, CBCAD #### [facility] [address] [place], [place] [id number] Albumin/Globulin [Mass ratio] 1.5 {ratio} Normal 1.0-2.5 [facility] Academic Affairs Manager Comment on above: Performed By: #### L IPD, TSH, CMP, VITD, CBCAD #### [facility] [address] [place], [place] [id number] ALP [Catalytic activity/Vol] 104 U/L Normal 35-119 [facility] Comment on above: Performed By: #### L IPD, TSH, CMP, VITD, CBCAD #### [facility] [address] [place], [place] [id number] ALT [Catalytic activity/Vol] 7 U/L Normal 6-33 [facility] Comment on above: Result Comment: 02/11 Female reference range changed. Performed By: #### L IPD, TSH, CMP, VITD, CBCAD #### [facility] [address] [place], [place] [id number] Anion gap [Moles/Vol] 18 mmol/L Normal 12-20 [facility] Comment on above: Result Comment: Effe ctive 03/19/2019 reference range changed. Performed By: #### L IPD, TSH, CMP, VITD, CBCAD #### [facility] [address] [place], [place] [id number] AST [Catalytic activity/Vol] 16 U/L Normal 9-34 [facility] Comment on above: Performed By: #### L IPD, TSH, CMP, VITD, CBCAD #### [facility] [address] [place], [place] [id number] Bilirubin [Mass/Vol] 0.92 mg/dL Normal 0.30-1.20 [facility] Comment on above: Performed By: #### L IPD, TSH, CMP, VITD, CBCAD #### [facility] [address] [place], [place] [id number] BUN/CREA 29 Ratio High 6-22 [facility] Comment on above: Performed By: #### L IPD, TSH, CMP, VITD, CBCAD #### [facility] [address] [place], [place] [id number] Calcium [Mass/Vol] 9.5 mg/dL Normal 8.6-10.2 [facility] Comment on above: Performed By: #### L IPD, TSH, CMP, VITD, CBCAD #### [facility] [address] [place], [place] [id number] Chloride [Moles/Vol] 99 mmol/L Normal 98-107 [facility] [place] Academic Affairs Manager Comment on above: Performed By: #### L IPD, TSH, CMP, VITD, CBCAD #### [facility] [address] [place], [place] [id number] CO2 [Moles/Vol] 26 mmol/L Normal 20-31 [facility] Comment on above: Performed By: #### L IPD, TSH, CMP, VITD, CBCAD #### [facility] [address] [place], [place] [id number] Creatinine [Mass/Vol] 0.5 mg/dL Low 0.6-1.4 [facility] Comment on above: Performed By: #### L IPD, TSH, CMP, VITD, CBCAD #### [facility] [address] [place], [place] [id number] eGFRAA 135 mL/min/1.73m2 Normal >60 [facility] Comment on above: Performed By: #### L IPD, TSH, CMP, VITD, CBCAD #### [facility] [address] [place], [place] [id number] eGFRNAA 111 mL/min/1.73m2 Normal >60 [facility] Comment on above: Performed By: #### L IPD, TSH, CMP, VITD, CBCAD #### [facility] [address] [place], [place] [id number] Globulin (S) [Mass/Vol] 2.7 g/dL Normal 1.9-3.7 [facility] Comment on above: Performed By: #### L IPD, TSH, CMP, VITD, CBCAD #### [facility] [address] [place], [place] [id number] Glucose [Mass/Vol] 222 mg/dL High 65-99 [facility] Comment on above: Result Comment: For FASTING Glucose --- ADA reference ranges: Normal 65-99 mg/dl Prediabetes 100-125 Diabetes >/= 126 Performed By: #### L IPD, TSH, CMP, VITD, CBCAD #### [facility] [address] [place], [place] [id number] Potassium [Moles/Vol] 4.7 mmol/L Normal 3.5-5.5 [facility] [place] Academic Affairs Manager Comment on above: Performed By: #### L IPD, TSH, CMP, VITD, CBCAD #### [facility] [address] [place], [place] [id number] Protein [Mass/Vol] 6.8 g/dL Normal 6.1-8.1 [facility] [place] Academic Affairs Manager Comment on above: Performed By: #### L IPD, TSH, CMP, VITD, CBCAD #### [facility] [address] [place], [place] [id number] Sodium [Moles/Vol] 138 mmol/L Normal 135-146 Marcia olive[facility] [place] Academic Affairs Manager Comment on above: Performed By: #### L IPD, TSH, CMP, VITD, CBCAD #### [facility] [address] [place], [place] [id number] Urea nitrogen [Mass/Vol] 15 mg/dL Normal 7-25 [facility] Academic Affairs Manager Comment on above: Performed By: #### L IPD, TSH, CMP, VITD, CBCAD #### [facility] [address] [place], [place] [id number] Hemoglobin A1Con 07-16-2021 EAG 194.38 Normal [facility] Comment on above: Performed By: #### A 1C #### [facility] [address] [place], [place] [id number] HbA1c (Bld) [Mass fraction] 8.4 % High 4.0-6.0 [facility] Academic Affairs Manager Comment on above: Performed By: #### A 1C #### [facility] [address] [place], [place] [id number] Lipid Panelon 07-16-2021 Cholesterol [Mass/Vol] 172 mg/dL Normal 125-200 [facility] Academic Affairs Manager Comment on above: Result Comment: Low risk < 200mg/dL Borderline risk 201-239 mg/dl High risk > or equal to 240 Performed By: #### L IPD, TSH, CMP, VITD, CBCAD #### [facility] [address] [place], [place] [id number] Cholesterol in HDL [Mass/Vol] 57 mg/dL Normal >40 [facility] Academic Affairs Manager Comment on above: Result Comment: High Cardiovascular Risk HDL <40 mg/dL Low Cardiovascular Risk HDL > or equal to 60 mg/dl Performed By: #### L IPD, TSH, CMP, VITD, CBCAD #### [facility] [address] [place], [place] [id number] Cholesterol in LDL [Mass/Vol] 88 mg/dL Normal [facility] Comment on above: Result Comment: LDL ATP III CLASSIFICATION LDL less than 100 mg/dl Optimal LDL 100-129 mg/dl Near or above optimal LDL 130-159 Borderline high LDL 160-189 High LDL greater than 189 mg/dl Very High Performed By: #### L IPD, TSH, CMP, VITD, CBCAD #### [facility] [address] [place], [place] [id number] Cholesterol in VLDL [Mass/Vol] 27 mg/dL Normal [facility] Comment on above: Performed By: #### L IPD, TSH, CMP, VITD, CBCAD #### [facility] [address] [place], [place] [id number] Cholesterol.total/Cho lesterol in HDL [Mass ratio] 3 {ratio} Normal [facility] Comment on above: Performed By: #### L IPD, TSH, CMP, VITD, CBCAD #### [facility] [address] [place], [place] [id number] Triglyceride [Mass/Vol] 133 mg/dL Normal 30-150 [facility] Academic Affairs Manager Comment on above: Result Comment: TRIG ATPIII CLASSIFICATIONS TRIG less than 150 mg/dl Normal TRIG 150-199 mg/dl Borderline High TRIG 200-500 mg/dl High TRIG greather than 500 mg/dl Very High Performed By: #### L IPD, TSH, CMP, VITD, CBCAD #### [facility] [address] [place], [place] [id number] TSHon 07-16-2021 TSH 1.480 uIU/mL Normal 0.400-4.50 0 [facility] Comment on above: Performed By: #### L IPD, TSH, CMP, VITD, CBCAD #### [facility] [address] [place], [place] [id number] Vitamin B12on 07-16-2021 Cobalamin (Vitamin B12) [Mass/Vol] 1009 pg/mL High 211-946 [facility] Comment on above: Performed By: #### B 12 #### [facility] [address] [place], [place] [id number] Vitamin D 25-OHon 07-16-2021 VIT D 25 OH 56 ng/ml Normal >29 [facility] Academic Affairs Manager Comment on above: Result Comment: Frederic min D Status Deficiency <20 ng/mL Insufficiency 20-29 ng/mL Optimal 30-100 ng/mL Possible Toxicity >=150 ng/mL Performed By: #### L IPD, TSH, CMP, VITD, CBCAD #### [facility] [address] [place], [place] [id number] Prothrombin Time INRon 06-10 INR Coag (PPP) [Relative time] 5.2 {INR} [employer] Other Prothrombin Time INR [employer] Other Prothrombin Time INRon 05-26 INR Coag (PPP) [Relative time] 3.9 {INR} [employer] Other Prothrombin Time INR [employer] Other Prothrombin Time INRon 03-25 INR Coag (PPP) [Relative time] 3.2 {INR} [employer] Other Prothrombin Time INR [employer] Other Prothrombin Time INRon 02-25 INR Coag (PPP) [Relative time] 1.9 {INR} [employer] Other Prothrombin Time INR [employer] Other Prothrombin Time INRon 01-28 INR Coag (PPP) [Relative time] 2.2 {INR} [employer] Other Prothrombin Time INR [employer] Other Prothrombin Time INRon 12-10 INR Coag (PPP) [Relative time] 2.4 {INR} [employer] Other Prothrombin Time INR [employer] Other Office Visit (Neuro-Movement -PD)on 11-01-2017 Office Visit ([facility]-[place]) History of Present IllnessALTON BARKER is here [...] asleep and no acting out of dreams. [place] Sleepiness Scale is 14. She reports concern [...] MG Oral Tablet Vitals Vital Signs Recorded: [id number] 01:33PMHeart [id number], YBNZjfvsvwac54, [id number] lb 1 ozBMI Hoqaiikgqf99.59BSA Calculated2.27 Physical ExamConstitutional: General appearance: no acute [...] Transmission to [id number]; Last Updated By: [employer]; 10/26/2017 2:12:16 PM Provider ImpressionsSlexy is a right-handed 77 year-old woman with [...] and treatment options. 25 minutes was spent wayo-co-vxzr in the visit. Patient Discussion/SummaryI am recommending starting Sinemet 0.5 tablets three times daily for 1 week with meals and then increase the first dose to 1 tablet. Follow up in 3 months. Signatures Electronically signed by : Tyree Perez MD; Nov 01 2017 8:36AM EST (Author) Normal [facility] Vital Signs Date Time Vital Sign Value Performing Clinician Génesis fish 01-20-2023 14:52-0500 Body height 167.6 cm Gloria Perez APRN.WALL CRANE OPERATOR Work Phone: [facility] 01-20-2023 14:52-0500 SaO2% (BldA) [Mass fraction] 98 % Gloria Perez SCHOOL OFFICE MANAGER.WALL CRANE OPERATOR Work Phone: [facility] 07-08-2022 14:54-0400 Body height 167.6 cm Gloria Perez SCHOOL OFFICE MANAGER.WALL CRANE OPERATOR Work Phone: [facility] 07-08-2022 14:54-0400 Body weight 85.14 kg Gloria Perez SCHOOL OFFICE MANAGER.WALL CRANE OPERATOR Work Phone: [facility] 07-08-2022 14:54-0400 SaO2% (BldA) [Mass fraction] 98 % Gloria Perez SCHOOL OFFICE MANAGER.WALL CRANE OPERATOR Work Phone: [facility] 05-20-2022 09:30-0500 Diastolic blood pressure 60 mm[Hg] DO Honey Vaschak Work Phone: [facility] 05-20-2022 09:30-0500 Heart rate 89 /min DO Honey Vaschak Work Phone: [facility] 05-20-2022 09:30-0500 Systolic blood pressure 106 mm[Hg] DO Honey Vaschak Work Phone: [facility] 11-25-2021 16:00-0400 Body temperature 97.4 [degF] DO Honey Vaschak Work Phone: [facility] 11-25-2021 16:00-0400 Diastolic blood pressure 61 mm[Hg] DO Honey Vaschak Work Phone: [facility] 11-25-2021 16:00-0400 Heart rate 98 /min DO Honey Vaschak Work Phone: [facility] 11-25-2021 16:00-0400 Respiratory rate 16 /min DO Honey Vaschak Work Phone: [facility] 11-25-2021 16:00-0400 SaO2% (BldA) [Mass fraction] 98 % DO Honey Vaschak Work Phone: [facility] 11-25-2021 16:00-0400 Systolic blood pressure 96 mm[Hg] DO Honey Vaschak Work Phone: [facility] 11-24-2021 12:10-0400 Body height 167.64 cm DO Honey Vaschak Work Phone: [facility] 11-22-2021 06:00-0400 Body weight 92.8 kg DO Honey Vaschak Work Phone: [facility] 11-13-2021 21:44-0400 Body temperature 98.1 [degF] DO Honey Vaschak Work Phone: [facility] 11-13-2021 21:44-0400 Diastolic blood pressure 71 mm[Hg] DO Honey Vaschak Work Phone: [facility] 11-13-2021 21:44-0400 Heart rate 92 /min DO Honey Vaschak Work Phone: [facility] 11-13-2021 21:44-0400 Respiratory rate 18 /min DO Honey Vaschak Work Phone: [facility] 11-13-2021 21:44-0400 SaO2% (BldA) [Mass fraction] 98 % DO Honey Vaschak Work Phone: [facility] 11-13-2021 21:44-0400 Systolic blood pressure 112 mm[Hg] DO Honey Vaschak Work Phone: [facility] 11-12-2021 16:00-0400 Body temperature 97.6 [degF] DO Honey Vaschak Work Phone: [facility] 11-12-2021 16:00-0400 Diastolic blood pressure 63 mm[Hg] DO Honey Vaschak Work Phone: [facility] 11-12-2021 16:00-0400 Heart rate 96 /min DO Honey Danilochak Work Phone: [facility] 11-12-2021 16:00-0400 Respiratory rate 16 /min DO Honey Mukulk Work Phone: [facility] 11-12-2021 16:00-0400 SaO2% (BldA) [Mass fraction] 98 % DO Honey Danilochak Work Phone: [facility] 11-12-2021 16:00-0400 Systolic blood pressure 98 mm[Hg] DO Honey Vaschak Work Phone: [facility] 11-12-2021 10:30-0400 Body height 167.64 cm DO Honey Mukulk Work Phone: [facility] 11-11-2021 15:00-0400 Body weight 92.98 kg DO Honey Mukulk Work Phone: [facility] 11-11-2021 08:00-0400 Body temperature 97.9 [degF] DO Honey Mukulk Work Phone: [facility] 11-11-2021 08:00-0400 Diastolic blood pressure 67 mm[Hg] DO Honey Mukulk Work Phone: [facility] 11-11-2021 08:00-0400 Heart rate 87 /min DO Honey Mukulk Work Phone: [facility] 11-11-2021 08:00-0400 SaO2% (BldA) [Mass fraction] 95 % DO Honey Danilochak Work Phone: [facility] 11-11-2021 08:00-0400 Systolic blood pressure 103 mm[Hg] DO Honey Vaschak Work Phone: [facility] 11-11-2021 05:58-0400 Respiratory rate 17 /min DO Honey Vaschak Work Phone: [facility] 11-11-2021 04:10-0400 Body weight 93.3 kg DO Honey Vaschak [facility]: [facility] [facility] 11-05-2021 16:33-0400 Body height 167.64 cm DO Honey Vaschak Work Phone: [facility] 10-19-2021 23:25-0400 Diastolic blood pressure 78 mm[Hg] DO Honey Vaschak Work Phone: [facility] 10-19-2021 23:25-0400 Heart rate 83 /min DO Honey Vaschak Work Phone: [facility] 10-19-2021 23:25-0400 Respiratory rate 18 /min DO Honey Vaschak Work Phone: [facility] 10-19-2021 23:25-0400 SaO2% (BldA) [Mass fraction] 100 % DO Honey Vaschak Work Phone: [facility] 10-19-2021 23:25-0400 Systolic blood pressure 164 mm[Hg] DO Honey Vaschak Work Phone: [facility] 10-19-2021 19:51-0400 Body temperature 97.6 [degF] DO Honey Vaschak Work Phone: [facility] 10-19-2021 19:48-0400 Body height 167.64 cm DO Honey Vaschak Work Phone: [facility] 10-19-2021 19:48-0400 Body weight 98.6 kg DO Honey Vaschak Work Phone: [facility] 10-01-2021 11:58-0400 Body height 167.6 cm Gloria Perez APRN.WALL CRANE OPERATOR Work Phone: [facility] 10-01-2021 11:58-0400 Body weight 101.06 kg Gloria Perez APRN.WALL CRANE OPERATOR Work Phone: [facility] 10-01-2021 11:58-0400 SaO2% (BldA) [Mass fraction] 98 % Gloria Perez APRN.WALL CRANE OPERATOR Work Phone: [facility] 09-28-2021 02:06-0400 Heart rate 86 /min DO Honey Mukulk Work Phone: [facility] 09-28-2021 00:01-0400 Body height 167.64 cm DO Honey Mukulk Work Phone: [facility] 09-28-2021 00:01-0400 Body mass index (BMI) [Ratio] 35.5 kg/m2 DO Honey Danilochak Work Phone: [facility] 09-28-2021 00:01-0400 Body weight 99.79 kg DO Honey Mukulk Work Phone: [facility] 09-27-2021 23:57-0400 Body temperature 99.6 [degF] DO Honey Mukulk Work Phone: [facility] 09-27-2021 23:57-0400 Diastolic blood pressure 59 mm[Hg] DO Honey Mukulk Work Phone: [facility] 09-27-2021 23:57-0400 Respiratory rate 16 /min DO Honey Mukulk Work Phone: [facility] 09-27-2021 23:57-0400 SaO2% (BldA) [Mass fraction] 97 % DO Honey Mukulk Work Phone: [facility] 09-27-2021 23:57-0400 Systolic blood pressure 125 mm[Hg] DO Honey Danilochak Work Phone: [facility] 07-31-2020 16:20-0400 Body height 167.64 cm Honey Mukulk Work Phone: [facility] 07-31-2020 16:20-0400 Body mass index (BMI) [Ratio] 41.6 kg/m2 Honey Rabago Work Phone: [facility] 07-31-2020 16:20-0400 Body weight 117.02 kg Honey Rabago Work Phone: [facility] 07-31-2020 16:19-0400 Body temperature 98.1 [degF] Honey Rabago Work Phone: [facility] 07-31-2020 16:19-0400 Diastolic blood pressure 70 mm[Hg] Honey Rabago Work Phone: [facility] 07-31-2020 16:19-0400 Heart rate 90 /min Honey Rabago Work Phone: [facility] 07-31-2020 16:19-0400 Respiratory rate 18 /min Honey Rabago Work Phone: [facility] 07-31-2020 16:19-0400 SaO2% (BldA) [Mass fraction] 98 % Honey Rabago Work Phone: [facility] 07-31-2020 16:19-0400 Systolic blood pressure 155 mm[Hg] Honey Rabago Work Phone: [facility] Encounters Encounter Date Encounter Type Care Provider Facility Start: 03-28-2023 ambulatory MUNIRAPRATEEKFERNANDO VILLASENOR Not Avail able Start: 03-28-2023 End: 03-28-2023 ambulatory HONEY RABAGO Not Available Start: 02-11-2023 Telephone encounter Gloria blankenship APRN.WALL CRANE OPERATOR Work Phone: Neurology Comment on above: Medication Problem Start: 01-25-2023 End: 01-25-2023 ambulatory URBANO BENNETT Not Available Start: 01-20-2023 End: 01-20-2023 ambulatory HONEY RABAGO Facility:[facility] Start: 01-20-2023 End: 01-20-2023 Patient encounter procedure Gloria Perez APRN.WALL CRANE OPERATOR Work Phone: Neurology Comment on above: Parkinson's disease without dyskinesia, with fluctuating manifestations (Primary Dx); Depression with anxiety Start: 07-14-2022 End: 07-14-[address] HONEY RABAGO Facility:[facility] Start: 07-12-2022 End: 07-12-[address] HONEY RABAGO Facility:[facility] Start: 07-08-2022 End: 07-08-2022 ambulatory HONEY RABAGO Facility:[facility] Start: 07-08-2022 End: 07-08-2022 Patient encounter procedure Gloria Perez APRN.WALL CRANE OPERATOR Work Phone: Neurology Comment on above: Parkinson's disease (HCC) (Primary Dx); Depression with anxiety Start: 06-01-2022 End: 06-01-[address] HONEY RABAGO Facility:[facility] Start: 05-31-2022 ambulatory Gloria Perez APRN.WALL CRANE OPERATOR Work Phone: Neurology Comment on above: UPDATE: ALTON CRWAFORD : [birth year] Start: 05-20-2022 End: 05-20-2022 ambulatory Honey Rabago Facility:[facility] Start: 05-20-2022 End: 05-20-2022 ambulatory DO Honey Rabago Work Phone: [facility] Work Phone: Start: 05-20-2022 End: 05-20-2022 Discharged Recurring DO Honey Rabago Work Phone: [facility]-Infusion Therapy - O/P Work Phone: Start: 04-13-2022 Refill Gloria Perez APRN.WALL CRANE OPERATOR Work Phone: Neurology Comment on above: Refill Request Start: 02-15-2022 Telephone encounter Gloria blankenship APRN.WALL CRANE OPERATOR Work Phone: Neurology Comment on above: Patient Update Start: 02-02-2022 End: 02-03-[address] HONEY RABAGO Facility:[facility] Start: 01-08-2022 End: 01-08-2022 ambulatory Anu Alva Other [facility] Other Start: 01-08-2022 Telephone encounter Anu Alva [facility] Start: 12-30-2021 End: 12-30-2021 ambulatory Honey Rabago Facility:[facility] Start: 12-30-2021 End: 12-30-2021 Patient encounter procedure DO Méndez Danilokoki Work Phone: [facility]-Lab [facility] Start: 12-29-2021 End: 12-30-[address] HONEY RABAGO Facility:[facility] Start: 12-21-2021 End: 12-21-[address] HONEY RABAGO Facility:[facility] Start: 12-15-2021 (Repeat [facility]) Anu Alva [facility] Start: 12-15-2021 End: 12-15-2021 ambulatory Anu Alva Other [facility] Other Start: 12-14-2021 End: 12-14-[address] HONEY RABAGO Facility:[facility] Start: 12-01-2021 (Repeat [facility]) Anu Alva [facility] Start: 12-01-2021 End: 12-01-2021 ambulatory Anu Alva Other [facility] Other Start: 11-30-2021 End: 11-30-[address] HONEY RABAGO Facility:[facility] Start: 11-11-2021 End: 11-25-2021 Evaluation and management of inpatient Alcides Griffin Facility:[facility] Start: 11-11-2021 End: 11-25-2021 Evaluation and management of inpatient DO Méndez Danilokoki Work Phone: [facility] Start: 11-05-2021 End: 11-05-2021 ambulatory Oswaldo Almonte Other [facility] Other Start: 11-05-2021 Patient encounter procedure Oswaldo Almonte [facility] Start: 11-05-2021 Telephone encounter Gloria blankenship APRN.WALL CRANE OPERATOR Work Phone: Neurology Comment on above: Appointment; Patient Update (Called to schedule follow up. Patient in hospital.) Start: 11-04-2021 End: 11-11-2021 ambulatory Honey Rabago Facility:[facility] Start: 11-04-2021 End: 11-11-2021 Evaluation and management of inpatient DO Honey Rabago Work Phone: [facility] Start: 10-26-2021 ambulatory Gloria Perez APRN.WALL CRANE OPERATOR Work Phone: Neurology Comment on above: ALTON BARKER UPDATE MESSAGE #3 Start: 10-22-2021 Registered Recurring DO Honey Rabago Work Phone: [facility] Start: 10-22-2021 ([facility] R A/c) [facility] Re peat A/C Anu Alva [facility] Start: 10-22-2021 End: 10-23-2021 ambulatory Honey Rabago [facility] Other Start: 10-19-2021 End: 10-20-2021 Emergency department patient visit Holgermatthias Dorado Facility:[facility] Start: 10-19-2021 End: 10-20-2021 Emergency department patient visit DO Honey Rabago Work Phone: [facility]-Emergency Room Start: 10-01-2021 End: 10-01-2021 Patient encounter procedure Gloria Perez APRN.WALL CRANE OPERATOR Work Phone: Neurology Comment on above: Recurrent episodes o f unresponsiveness (Primary Dx); Parkinson's disease (HCC); Depression with anxiety; Fatigue, unspecified type; Excessive daytime sleepiness Start: 09-29-2021 ([facility] R A/c) [facility] Re peat A/C Anu Fitt [facility] Start: 09-29-2021 End: 09-29-2021 ambulatory Anu Alva Other [facility] Other Start: 09-28-2021 End: 09-28-2021 Emergency department patient visit Sumanth Lowe Facility:[facility] Start: 09-27-2021 End: 09-28-2021 Emergency department patient visit DO Honey Rabago Work Phone: [facility]-Emergency Room Start: 09-23-2021 End: 09-23-2021 ambulatory Anu Fitt Other [facility] Other Start: 09-23-2021 Telephone encounter Anu Fitt [facility] Start: 08-26-2021 ([facility] R A/c) [facility] Anu Fitt [facility] Start: 08-26-2021 End: 08-26-2021 ambulatory Anu Fitt Other [facility] Other Start: 08-05-2021 ([facility] R A/c) [facility] Re peat A/C Anu Fitt [facility] Start: 08-05-2021 End: 08-05-2021 ambulatory Anu Fitt Other [facility] Other Start: 07-20-2021 ([facility] R A/c) [facility] Re peat A/C Anu Fitt [facility] Start: 07-20-2021 End: 07-20-2021 ambulatory Anu Fitt Other [facility] Other Start: 06-10-2021 ([facility] R A/c) [facility] Re peat A/C Anu Fitt [facility] Start: 06-10-2021 End: 06-10-2021 ambulatory Anu Fitt Other [facility] Other Start: 05-26-2021 ([facility] R A/c) [facility] Re peat A/C Anu Fitt [facility] Start: 05-26-2021 End: 05-26-2021 ambulatory Anu Fitt Other [facility] Other Start: 05-19-2021 End: 05-19-2021 ambulatory Anu Fitt Other [facility] Other Start: 05-19-2021 Telephone encounter Anu Fitt [facility] Start: 04-21-2021 End: 04-21-2021 ambulatory Anu Fitt Other [facility] Other Start: 04-21-2021 Telephone encounter Anu Fitt [facility] Start: 04-15-2021 End: 04-15-2021 ambulatory Anu Fitt Other [facility] Other Start: 04-15-2021 Telephone encounter Anu Fitt [facility] Start: 03-25-2021 ([facility] R A/c) [facility] Re peat A/C Anu Fitt [facility] Start: 03-25-2021 End: 03-25-2021 ambulatory Anu Fitt Other [facility] Other Start: 02-25-2021 ([facility] R A/c) [facility] Re peat A/C Anu Fitt [facility] Start: 02-25-2021 End: 02-25-2021 ambulatory Anu Fitt Other [facility] Other Start: 01-28-2021 ([facility] R A/c) [facility] Re peat A/C Anu Fitt [facility] Start: 01-28-2021 End: 01-28-2021 ambulatory Anu Fitt Other [facility] Other Start: 01-21-2021 End: 01-21-2021 ambulatory Anu Fitt Other [facility] Other Start: 01-21-2021 Telephone encounter Anu [facility] Start: 01-07-2021 End: 01-07-2021 ambulatory Anu Alva Other [facility] Other Start: 01-07-2021 Telephone encounter Anu Calvert [facility] Start: 12-10-2020 ([facility] R A/c) [facility] Re peat A/C Anu Alva [facility] Start: 07-31-2020 End: 07-31-2020 Emergency department patient visit Honye Rabago Work Phone: -Emergency Room Start: 06-18-2020 Registered Recurring Honey guerrero Work Phone: -[facility] Procedures Date Procedure Procedure Detail Performing [...] Adult depression scr eening assessment Gloria Perez APRN.WALL CRANE OPERATOR Work Phone: Start: 09-28-2021 Plain chest X-ray [...] Author Start: 12-04-2023 DIABETES SCREEN DIABETES SCREEN [facility] Start: 12-04-2023 Diabetes Screening Diabetes Screenin g [facility] Start: 11-12-2022 Covid-19 Vaccine () Covid-19 Vaccine () [facility] Start: 09-29-2022 Adult depression screening assessment DEPRESSION SCREENING [facility] Start: 03-14-2022 ADVANCE DIRECTIVE DISCUSSION ADVANCE DIRECTIVE DISCUSSION [facility] Start: 03-14-2022 DEPRESSION ASSESSMENT DEPRESSION ASS ESSMENT [facility] Start: 12-11-2021 [facility] Work Phone: Start: 12-10-2021 [facility] Work Phone: Start: 12-09-2021 [facility] Work Phone: Start: 12-08-2021 [facility] Work Phone: Start: 12-07-2021 [facility] Work Phone: Start: 12-06-2021 [facility] Work Phone: Start: 12-05-2021 [facility] Work Phone: Start: 12-04-2021 [facility] Work Phone: Start: 12-03-2021 [facility] Work Phone: Start: 12-02-2021 [facility] Work Phone: Start: 12-01-2021 [facility] Work Phone: Start: 11-30-2021 [facility] Work Phone: Start: 11-29-2021 [facility] Work Phone: Start: 11-28-2021 [facility] Work Phone: Start: 11-27-2021 [facility] Work Phone: Start: 11-26-2021 [facility] Work Phone: Start: 11-25-2021 [facility] Work Phone: Start: 11-24-2021 End: 11-24-2021 [facility] Start: 11-23-2021 [facility] Start: 11-22-2021 [facility] Work Phone: Start: 11-21-2021 [facility] Work Phone: Start: 11-20-2021 [facility] Work Phone: Start: 11-19-2021 [facility] Work Phone: Start: 11-18-2021 [facility] Work Phone: Start: 11-17-2021 [facility] Work Phone: Start: 11-16-2021 [facility] Work Phone: Start: 11-15-2021 [facility] Work Phone: Start: 11-14-2021 [facility] Work Phone: Start: 11-13-2021 [facility] Work Phone: Start: 11-12-2021 Influenza vaccination INFLUENZA (#1) [facility] Start: 11-11-2021 Administration of prophylactic treatment [facility] Start: 11-11-2021 Hospital admission [facility] Start: 11-11-2021 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 board 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 operator [facility] Start: 11-11-2021 [facility] Work Phone: Start: 11-11-2021 Evaluation and management of inpatient Back pain [facility] Start: 11-09-2021 [facility] Start: 11-05-2021 MR lumbar spine wo con MR lumbar spi ne wo [facility] Start: 11-05-2021 Administration of prophylactic treatment [facility] Start: 11-05-2021 Administration of prophylactic treatment [facility] Start: 11-05-2021 Consultation [facility] Start: 11-04-2021 Referral to psychiatrist [facility] Start: 11-04-2021 Hospital admission [facility] Start: 11-04-2021 End: 11-11-2021 Evaluation and management of inpatient Back pain [facility] Start: 11-04-2021 CT of head without contrast CT head/brain wo [facility] Start: 11-04-2021 Computed tomography of thoracic spine without contrast CT thoracic spine wo [facility] Start: 11-04-2021 CT cervical spine without contrast CT cervical spine wo [facility] Start: 11-04-2021 CT of lumbar spine without contrast CT lumbar spine wo [facility] Start: 10-22-2021 Registered Recurring Registered Recu rring [facility] Start: 05-20-2021 COVID-19 VACCINE (4 - Booster for Moderna series) COVID-19 VACCINE (4 - Booster for Moderna series) [facility] Start: 03-17-2021 COVID-19 VACCINE (4 - Booster for Moderna series) COVID-19 VACCINE (4 - Booster for Moderna series) [facility] Start: 03-14-2021 ADVANCE DIRECTIVE DISCUSSION ADVANCE DIRECTIVE DISCUSSION [facility] Start: 03-14-2021 DEPRESSION ASSESSMENT DEPRESSION ASS ESSMENT [facility] Start: 07-23-2009 Urine microalbumin profile DTaP,Tdap,Td Vaccine (1 - Tdap) [facility] Start: 2006 BONE DENSITY BONE DENSITY [facility] Start: 2006 Bone Density Screening Bone Density Screening [facility] Start: 2006 PNEUMOCOCCAL: 65+ (1 - PCV) PNEUMOCOCCAL: 65+ (1 - PCV) [facility] Start: 2001 RSV Vaccine (1 - 1-d ose 60+ series) RSV Vaccine (1 - 1-dose 60+ series) [facility] Start: 07-14-1991 SHINGRIX VACCINE (1 of 2) SHINGRIX VACCINE (1 of 2) [facility] Start: 1960 Urine microalbumin profile DTAP,TDAP,TD (1 - Tdap) [facility] End: 10-04-2022 EPIL EEG ROUTINE EPIL EEG ROUTINE NEUROLOGY Routine Recurrent episodes of unresponsiveness 1 Occurrences starting 10/04/2021 until 10/04/[address] [facility] Work Phone: Comment on above: 1 Occurrences starti ng 10/04/2021 until 10/04/2022 Patient Education [facility] Work Phone: Patient referral [facility] Immunizations Immunization Date Immunization Notes Care Provider Benedict champagne 02-05-2019 influenza, high dose seasonal, preservative-free Anu Juan Migueljulius Other [facility] Other Payers Date Payer Category Payer Medicare [id number] 2021 Unknown ANTHEM BLUE CROS S AND BLUE SHIELD ANTHEM MEDIBLUE O [id number] 2021-Present [phone] [address] [place] [address] O [id number] 2021 Unknown ANTHEM BLUE CROS S AND BLUE SHIELD ANTHEM MEDIBLUE O [id number] 2021-Present [phone] [address] [place] [address] O [id number] 2016 Self-pay [id number] 1959 Medicare [id number] 1959 Unknown [id number] 1941 Unknown [id number] 93 1941 Unknown [id number] 2.16.840.1.284541.3.579.2.5 93 1941 Unknown [id number] [id number] 93 1941 Unknown [id number] 2.16.840.1.622074.3.579.2.5 93 1941 Unknown [id number] 2.16.840.1.225988.3.579.2.5 93 1941 Unknown [id number] 2.16.840.1.435325.3.579.2.5 93 1941 Unknown [id number] 2.16.840.1.788988.3.579.2.5 93 1941 Unknown [id number] 2.16.840.1.505233.3.579.2.5 93 1941 Unknown [id number] 2.16.840.1.631034.3.579.2.1 259 1941 Unknown [id number] 2.16.840.1.407523.3.579.2.1 259 1941 Unknown [id number] 2.16.840.1.494082.3.579.2.1 259 Private Health Insurance 101 [id number] Unknown [id number] 2.16.840.1.209875.3.579.2.5 31 Unknown [id number] 2.16.840.1.072708.3.579.2.5 31 Unknown [id number] 2.16.840.1.025788.3.579.2.5 31 Unknown [id number] 2.16.840.1.126832.3.579.2.5 31 Unknown [id number] 2.16.840.1.938285.3.579.2.5 31 Unknown [id number] 2.16.840.1.020521.3.579.2.5 31 Unknown [id number] [id number] 31 Social History Date Type Detail Facility Start: 07-31-2020 End: 02-12-2022 Tobacco smoking status UTIS Ex-smoker (finding) [facility] Start: 1940 Sex Assigned At Female [facility] Start: 09-29-2021 End: 01-20-2023 Sex Assigned At [facility] Start: 03-02-2018 End: 02-12-2022 Tobacco use and exposure Smokeless tobacco non-user [facility] Start: 09-21-2021 End: 02-12-2022 Exposure to SARS-CoV-2 (event) Not sure [facility] History of tobacco use Current smoker [facility] Start: 11-12-2021 End: 11-12-2021 Tobacco smoking status UTIS Never smoked tobacco (finding) [facility] Start: 09-29-2021 End: 01-20-2023 History of Social function [facility] Adult Depression Screening Assessment 4 [facility] Start: 11-26-2019 Gender identity Identifies as female gender (finding) [facility] Start: 11-26-2019 Sexual orientation Heterosexual (francine [place]) [facility] Medical Equipment Procedure Code Equipment Code Equipment Origin al Text Equipment Identifier Dates USE DIRECTED BEFORE MEALS AND BEDTIME Start: 08-28-2018 End: 09-29-2021 Comment on above: USE DIRECTED BEFO RE MEALS AND BEDTIME Goals Date Patient Goal Desired Activity /State Functional Status Date Assessment Result Facility 11-25-2021 Functional status Patient is Pro gressing Toward Baseline [facility] Work Phone: 11-11-2021 Functional status Patient is Pro gressing Toward Baseline [facility] Work Phone: 11-04-2021 Functional status Patient at Baseline [facility] Work Phone: Mental Status Date Assessment Result Facility 11-25-2021 Cognitive function Cognitive Sta tus Patient at Baseline [facility] Work Phone: 11-11-2021 Cognitive function Cognitive Sta tus Patient Not at Baseline [facility] Work Phone: 11-04-2021 Cognitive function Cognitive Sta tus Patient at Baseline [facility] Work Phone: Clinical Notes 12-10-2020 to 02-11-2023 Addendum Note - Anu Hillman RN - 02/11/2023 2:59 PM ESTTelephone Encounter - Anu Hillman RN - 02/11/2023 2:57 PM ESTTelephone Encounter - Mary Anne Beatty - 02/11/2023 1:52 PM EST Note Date & Type Note Facility 02-11-2023 Note HNO ID: [id number] Author: Nupur Main PA-C Service: ? Author Type: Physician Insurance Account Representative Type: Progress Notes Filed: 02/11/2023 4:48 PM Note Text: Reviewed chart - OK to refill; e-scripted to pharmacy as requested... [facility] 02-11-2023 Miscellaneous Notes Addended by: ANU HILLMAN on: 02/11/2023 02:59 PM Modules accepted: Orders Order pended to preferred pharmacy Last OV 11/9/23 Next OV 06/23/23 E- [id number] [place] [address] - [address] [phone] [id number] carbidopa-levodopa (SINEMET 25-100) 25-100 mg per tablet Patient son called in today in regards to medication and wanting to switch pharmacy, they were told the best way to do this would be to request a new prescription. They would like it sent to [facility] Thank you! documented in this encounter [facility] 01-20-2023 Note HNO ID: [id number] Author: Gloria Perez APRN.WALL CRANE OPERATOR Service: ? Author Type: Nurse Practitioner Type: Progress Notes Filed: 01/24/2023 12:36 PM Note Text: [facility] - FOLLOW UP EVALUATION Honey Rabago DO [address] [facility] [address] Dear Honey Rabago DO: I had the [...] Use vaginally one (more content not included)... [facility] 01-20-2023 Instructions Gloria Perez APRN.WALL CRANE OPERATOR - 01/20/2023 3:46 PM EST It was a pleasure to see you today. We addressed the following diagnoses: Parkinson's disease without dyskinesia, with fluctuating manifestations (primary encounter diagnosis) Depression with anxiety My recommendations are as follows: 01/20/2023 Visit: Parkinson's disease: Continue current medication schedule but discuss with the market analysis director if you can take the Sinemet on [...] or you can send a message through TalkSession. You can also now schedule and select appointments through TalkSession. Gloria Perez APRN.WALL CRANE OPERATOR documented in this encounter [facility] 01-20-2023 History of Presen t illness Narrative [facility] - FOLLOW UP EVALUATION Honey Rabago DO [address] [place] [address] Dear Honey Rabago DO: I had the [...] 01/18/2023: Pt takes 2 tabs daily per [facility] MEDICATION, NON-DATABASE 750 mg two times a [...] she is going to discuss with the market analysis director, see if she can take her Parkinson's [...] current medication schedule but discuss with the market analysis director if you can take the Sinemet on [...] Mirtazapine 7.5mg 1 Level of service : 38433 (40-54 min). Time spent 47 min on the day of service, which included preparing to see the patient, bbgy-id-lokm patient care, completing clinical documentation, obtaining and/or reviewing separately obtained history, performing a medically appropriate examination, counseling and educating the patient/family/caregiver, and ordering medications, tests, or procedures. Gloria Perez APRN.ELDON documented in this encounter [facility] 07-08-2022 Note HNO ID: [id number] Author: Gloria Perez APRN.ELDON Service: ? Author Type: Nurse Practitioner Type: Progress Notes Filed: 07/11/2022 5:23 PM Note Text: [facility] - FOLLOW UP EVALUATION Honey Rabago DO, DO [address] [facility] [address] [facility] [address] Dear Honey Rabago DO DO: I had the pleasure of seeing [...] She likes the staff. The director and patient relations director have to chip into cook since the [employer] cook and this has been good from [...] lot online or on TV, $15/month on lot[employer]endocino Softwarey tickets (in past) Palliative Concerns: Caregiver burden: [...] Rash Rosuvastatin Calcium (more content not included)... [facility] 07-08-2022 Instructions Gloria Perez APRN.ELDON - [...] or you can send a message through TalkSession. You can also now schedule and select appointments through TalkSession. Gloria Perez APRN.ELDON documented in this encounter [facility] 07-08-2022 History of Presen t illness Narrative [facility] - FOLLOW UP EVALUATION Honey Rabago DO, DO [address] [facility] [facility] [address] [facility] [address] Dear Honey Rabago DO, DO: I had [...] She likes the staff. The director and patient relations director have to chip into cook since the [facility] cook and this has been good from [...] lot online or on TV, $15/month on [employer] tickets (in past) Palliative Concerns: Caregiver burden: [...] hr capsule Take 75 mg by mouth. FREESTYLE VIVIAN 2 SENSOR kit apply 1 [...] or around: 01/07/23 Level of service : 56955 (40-54 min). Time spent 47 min on the day of service, which included preparing to see the patient, zrum-pd-dwut patient care, completing clinical documentation, obtaining and/or reviewing separately obtained history, performing a medically appropriate examination, counseling and educating the patient/family/caregiver, and ordering medications, tests, or procedures. Gloria Perez APRN.ELDON documented in this encounter [facility] 04-13-2022 Miscellaneous Notes Order pended Last OV [...] patient. Belen Tim documented in this encounter [facility] 02-15-2022 Miscellaneous Notes I tried callingGina, the social science teacher in her primary care provider's office. I left a message requesting a call back. AYO Chicas documented in this encounter [facility] 12-15-2021 Evaluation note Encounter Date Diagnosis Assessment Notes Dec, Medication monitoring encounter (ICD-10 - Z51.81) Referring Provider: Honey Rabago Diagnosis: DVT INR Goal: 2-3 INR: 2.0 ( 12/14) Warfarin Tablet Size: 2mg Tuesday: 2mg Tuesday: 2mg Tuesday: 1mg Tuesday: 2mg : 1mg Tuesday: 2mg Tuesday: 2mg Total Weekly Dose: 12mg Continue current plan. Follow up in 3 weeks. Please call patient's son Jose David at [phone] with results. Spoke to Jose David and discussed above. Spoke with RN Bety ([phone] ) and given above instructions. Patient may get home testing for INRs set-up, will inform clinic if home testing begins. Home Health Order: Draw PT/INR on 01-04-22 Seen by Justin Nicolas PharmD [facility] Other 09-20-2022 Evaluation note* Encounter Date Diagnosis [...] discharged on 11/25 from inpatient rehab at [facility] with above plan and therapeutic INRs. Follow up in 2 weeks. Please call patient's son Jose David at [phone] with results. Spoke to Jose David and discussed above. Spoke with HH RN Bety ([phone]) and given above instructions. Patient may get home testing for INRs set-up, will inform clinic if home testing begins. Home Health Order: Draw PT/INR on 12-14-21 Seen by Justni Nicolas PharmD [facility] Other 09-14-2022 Discharge summary Author Alcides Moya [facility] November 25, 2021 12:57pm Note Date/Time November 25, 2021 8:50am [facility] [address] [place] [address] Discharge Summary Signed Patient: Alton Barker MR#: [id number] : 1940 Acct:[id number] Age/Sex: 81 / F Adm Date: 2 Loc: Room: [address] [place] [address]: Alcides Moya MD Copies to: [...] Plan Discharge Plan Patient Disposition: Home Health [facility] Activity: Ambulate as Tolerated Diet: Regular Additional [...] needed, for comfort related to back pain. -[facility] to draw a PT/INR (dx:Z79.01) on Tuesday11/30/21, with results to [facility], who will continue to manage your Coumadin dosing, as they were prior to your hospitalization. -Coumadin dosing: Take 2mg every day EXCEPT Tuesday and . Take 1mg on Tuesday and . Your Home Health agency is [facility] ( ). They will usually [...] Patient Ordered By: Alcides Moya Follow Up: Vaschak,Honey, DO [Primary Care Provider] - 11/30/21 3:15 pm (-PCP.) Alcides Moya MD [Active Staff] - (-Rehab Physician. Follow up as/if needed.) Documented By: Alcides Moya MD 11/25/21 0850 Signed By: <Electronically signed by Alcides Moya MD> 11/25/21 1257 [facility] Work Phone: 1(423) 675-206209-12-2022 Progress note Author Alcides Moya [facility] November 23, 2021 3:01pm Note Date/Time November 23, 2021 1:36pm [facility] [address] [place] [address] Physiatry(Rehab) Progress Note Signed Patient: Alton Barker MR#: [id number] : 1940 Acct:[id number] Age/Sex: 81 / F Adm Date: 2 Loc: Room: [address] [place] [address] Type: ADM IN Attending Dr: Alcides Moya MD Copies to: ~ <Elham Mendoza APRN - Last Filed: 11/23/21 14:05> Date of Service: 11/23/2021 Subjective <Elham Mendoza APRN - Last Filed: 11/23/21 14:05> Subjective Narrative: Ms. 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 I reminded that she can take her [...] mg 11/11/21 14:29 Bisacodyl 10 Mg Supp.Rect AZ 11/11/22 14:28 DAILY PRN Constipation Carbidopa/Levodopa 1.5 [...] 14:29 Docusate Enema 283 Mg/5 Ml Enema AZ 11/11/22 14:28 DAILY PRN Constipation Lactulose 30 [...] Allied health note review, nursing note review, networks computer consultant note review, discussion with nursing and case management, and more than 50% of my time was spent on counseling and coordination of care, time spent 18 minutes Patient was personally seen by me, Dr. Moya, on the day of encounter, reviewed the history and the relevant portions of the chart, including current orders, allied health and networks computer consultant notes, labs/imaging and performed day elements [...] <Electronically signed by Alcides Moya MD> 11/23/21 3769 [facility] Work Phone: 1(593) 902-836409-12-2022 Progress note Author Alcides Moya [facility] November 23, 2021 2:39pm Note Date/Time November 20, 2021 1:19pm [facility] [address] [place] [address] Physiatry(Rehab) Progress Note Signed Patient: Alton Barker MR#: [id number] : 1940 Acct:[id number] Age/Sex: 81 / F Adm Date: 2 Loc: Room: 3M4286-6 Type: ADM IN Attending Dr: Alcides Moya MD Copies to: ~ <Elham Mendoza APRN - Last Filed: 11/20/21 13:21> Date of Service: 11/20/2021 Subjective <Elham Mendoza APRN - Last Filed: 11/20/21 13:21> Subjective Narrative: Ms. Barker is a 81 year old female With history of Parkinson's disease, followed at the [facility], admitted to the rehabilitation unit with multifactorialfunctional [...] mg 11/11/21 14:29 Bisacodyl 10 Mg Supp.Rect AZ 11/11/22 14:28 DAILY PRN Constipation Carbidopa/Levodopa 1.5 [...] 14:29 Docusate Enema 283 Mg/5 Ml Enema AZ 11/11/22 14:28 DAILY PRN Constipation Lactulose 30 [...] 11/20/21 17:01 ONCE ONE Assessment/Plan <Elham Mendoza, SCHOOL OFFICE MANAGER - Last Filed: 11/20/21 13:21> Assessment/Plan (1) [...] Allied health note review, nursing note review, networks computer consultant note review, discussion with nursing and case management, and more than 50% of my time was spent on counseling and coordination of care, time spent 16 minutes Patient was personally seen by me, Dr. Moya, on the day of encounter, reviewed the history and the relevant portions of the chart, including current orders, allied health and networks computer consultant notes, labs/imaging and performed day elements of exam and I formulated the plan of care and facilitated the medical decision making and confirmed the nurse practitioner note, as above Documented By: Elham Mendoza APRN 11/20/21 1 310 Signed By: <Electronically signed by HEIDI Mendoza> 11/20/21 1321 <Electronically signed by Alcides Moya MD> 11/23/21 8975 [facility] Work Phone: 1(750) 165-705809-08-2022 Progress note Author Rosa Maria Odell [facility] November 19, 2021 5:37pm Note Date/Time November 19, 2021 4:57pm [facility] [address] [place] [address] Hospitalist Progress Note Signed Patient: Alton Barker MR#: [id number] : 1940 Acct:[id number] Age/Sex: 81 / F Adm Date: 2 Loc: Room: 4N9488-0 Type: ADM IN Attending Dr: Alcides Moya [...] mg 11/11/21 14:29 Bisacodyl 10 Mg Supp.Rect AZ 11/11/22 14:28 DAILY PRN Constipation Carbidopa/Levodopa 1.5 [...] 14:29 Docusate Enema 283 Mg/5 Ml Enema AZ 11/11/22 14:28 DAILY PRN Constipation Lactulose 30 [...] signed by Rosa Maria Odell MD> 11/19/21 1737 [facility] Work Phone: 1(315) 451-509109-07-2022 Progress note Author Alcdies Moya [facility] November 18, 2021 12:40pm Note Date/Time November 17, 2021 10:56am [facility] [address] [place] [address] Physiatry(Rehab) Progress Note Signed Patient: Alton Barker MR#: [id number] : 1940 Acct:[id number] Age/Sex: 81 / F Adm Date: 2 Loc: Room: [address] [place] [address] Type: ADM IN Attending Dr: Alcides Moya [...] mg 11/11/21 14:29 Bisacodyl 10 Mg Supp.Rect AZ 11/11/22 14:28 DAILY PRN Constipation Carbidopa/Levodopa 1.5 [...] 14:29 Docusate Enema 283 Mg/5 Ml Enema AZ 11/11/22 14:28 DAILY PRN Constipation Lactulose 30 [...] Allied health note review, nursing note review, networks computer consultant note review, discussion with nursing and case management, and more than 50% of my time was spent on counseling and coordination of care, time spent 23 minutes Patient was personally seen by me, Dr. Moya, on the day of encounter, reviewed the history and the relevant portions of the chart, including current orders, allied health and networks computer consultant notes, labs/imaging and performed day elements [...] signed by Alcides Moya MD> 11/18/21 1240 [facility] Work Phone: 1(809) 490-646909-03-2022 Progress note Author Alcides Moya [facility] November 14, 2021 8:45am Note Date/Time November 13, 2021 3:25pm [facility] [address] [place] [address] Physiatry(Rehab) Progress Note Signed Patient: Alton Barker MR#: [id number] : 1940 Acct:[id number] Age/Sex: 81 / F Adm Date: 2 Loc: Room: [address] [place] [address] Type: ADM IN Attending Dr: Alcides Moya MD Copies to: ~ Date of Service: 11/13/2021 Subjective Subjective Narrative: Ms. Barker is a 81 year old female With history of Parkinson's disease, followed at the [facility], admitted to the rehabilitation unit with multifactorialfunctional [...] L 97 Room Air 11/13/21 05:00 11/13/21 10:11/13/21 05:00 11/13/21 10:06 11/13/21 05:00 11/13/21 07:30 [...] mg 11/11/21 14:29 Bisacodyl 10 Mg Supp.Rect AZ 11/11/22 14:28 DAILY PRN Constipation Carbidopa/Levodopa 1.5 [...] 14:29 Docusate Enema 283 Mg/5 Ml Enema AZ 11/11/22 14:28 DAILY PRN Constipation Lactulose 30 [...] (10) Chronic anticoagulation: Code(s): Z79.01 - terminal makeup operator (current) use of anticoagulants Status: Acute (11) Urinary tract infection: Code(s): N39.0 - Urinary tract infection, site not specified Status: Acute (12) Back pain: Code(s): M54.9 - Dorsalgia, unspecified Status: Acute Plan 81-year-old female with history of Parkinson's disease, follows at the [facility], admitted to the rehabilitation unit with [...] and self-care. Discharge planning:Insurance denial overturned via [id number]. 2 weeks approved. Plan for discharge home November 25 Plan: I completed a substantive portion of this encounter, the medical decision makingportion of this note in its entirety, including Allied health note review, nursing note review, networks computer consultant note review, discussion with nursing and case management, and more than 50% of my time was spent on counseling and coordination of care, time spent 26minutes Patient was personally seen by me, Dr. Moya, on the day of encounter, reviewed the history and the relevant portions of the chart, including current orders, allied health and networks computer consultant notes, labs/imaging and performed day elements of exam and I formulated the plan of care and facilitated the medical decision making and confirmed the nurse practitioner note, as above Documented By: Alcides Moya MD 11/13/21 1525 Signed By: <Electronically signed by Alcides Moya MD> 11/14/21 0845 [facility] Work Phone: 1(529) 951-824609-01-2022 Consult note Author Justice De Oliveira [facility] November 12, 2021 5:09pm Note Date/Time November 12, 2021 3:21pm [facility] [address] [place] [address] Hospitalist Consult Note Signed Patient: Alton Barker MR#: [id number] : 1940 Acct:[id number] Age/Sex: 81 / F Adm Date: 2 Loc: Room: [address] [place] [address] Type: ADM IN Attending Dr: Alcides Moya MD Copies to: MD Justice Pate DO Lynn A Stackhouse, ANP- Honey Rabago DO~ HPI DATE OF CONSULTATION: 11/12/21 REQUESTING PROVIDER: [...] incontinence. Patient with underlying Parkinson's follows with [facility] neurology and movement disorder clinicians there. In [...] negative unless noted below or in HPI [facility] Attestation Statement: The following information was validated with the patient. Vaccinated for COVID-19?: Yes Medical History (Updated 11/12/21 @ 15:42 by Tonya Suh, ANP-) Anxiety B12 deficiency Chronic anticoagulation Compression fracture [...] mg-vit E 90 mg-zinc 40 mg-copper 1 vy-snqxzz-pqsfjh capsule (PreserVision AREDS-2) 1 tab PO BID [...] mg 11/11/21 14:29 Bisacodyl 10 Mg Supp.Rect AZ 11/11/22 14:28 DAILY PRN Constipation Carbidopa/Levodopa 1.5 [...] 14:29 Docusate Enema 283 Mg/5 Ml Enema AZ 11/11/22 14:28 DAILY PRN Constipation Lactulose 30 gm 11/11/21 14:29 Lactulose 20 Gm/30 Ml Udc PO 11/11/22 14:28 DAILY PRN Constipation Levothyroxine Sodium 75 mcg 11/12/21 06:30 11/12/21 06:25 Levothyroxine 75 Mcg Tablet PO 11/12/22 06:29 Not Given DAILY@0630 [facility] Lidocaine 1 patch 11/12/21 09:00 11/12/21 [...] % (Auto) 45.9, Lymph % (Auto) 39.7, [place] % (Auto) 10.1, Eos % (Auto) 3.8, Baso % (Auto) 0.5, Neut # (Auto) 2.3, Lymph # (Auto) 2.0, [place] # (Auto) 0.5, Eos # (Auto) 0.2, [...] by Justice De Oliveira DO> 11/12/21 1709 [facility] Work Phone: 1(925) 211-287408-31-2022 History and physical note Author Alcides Moya [facility] November 11, 2021 6:55pm Note Date/Time November 11, 2021 1: 26pm [facility] [address] [place] [address] Physiatry (Rehab) H&P Signed Patient: Alton Barker MR#: [id number] : 1940 Acct:[id number] Age/Sex: 81 / F Adm Date: 2 Loc: Room: [address] [place] [address] Type: ADM IN Attending Dr: Alcides Moya MD Copies to: MD Honey Pate DO~ Date of Service: 11/11/2021 HPI The patient was seen and examined on: 11/11/21 Etiologic Diagnosis/Impairment Group: 08.9 History of Present Illness: Ms. Barker is a 81 year old female With history of Parkinson's disease, followed at the [facility], admitted to the rehabilitation unit with multifactorialfunctional [...] Lives at home with her son and orohuosc-jq-yog. Chronic conditions are otherwise stable with current [...] mg-vit E 90 mg-zinc 40 mg-copper 1 eu-lsohgx-vqrchs capsule (PreserVision AREDS-2) 1 tab PO BID [...] 14 days Expected Discharge Destination: Home Rehabilitation IG: 10.20 Primary Diagnosis: L1 compression fracture h/o PD [...] 24 hour daily monitoring and intervention from Art Objects Supervisor as well as other consulting physicians including internal medicine as well as 24 hour daily poultry pathologist nursing - for medical safe / optimal [...] Acute (10) Chronic anticoagulation: Code(s): Z79.01 - shelter (current) use of anticoagulants Status: Acute (11) Urinary tract infection: Code(s): N39.0 - Urinary tract infection, site not specified Status: Acute (12) Back pain: Code(s): M54.9 - Dorsalgia, unspecified Status: Acute Plan 81-year-old female with history of Parkinson's disease, follows at the [facility], admitted to the rehabilitation unit with [...] and self-care. Discharge planning:Insurance denial overturned via [id number]. Plan for discharge home in 1 to 2 weeks. Plan: I completed a substantive portion of this encounter, the medical decision making portion of this note in its entirety, including Allied health note review, nursing note review, networks computer consultant note review, discussion with nursing and case management, and more than 50% of my time was spent on counseling and coordination of care, time spent 65 minutes Patient was personally seen by me, Dr. Moya, on the day of encounter, reviewed the history and the relevant portions of the chart, including current orders, allied health and networks computer consultant notes, labs/imaging and performed day elements of exam and I formulated the plan of care and facilitated the medical decision making and confirmed the nurse practitioner note, as above Documented By: Alcides Moya MD 11/11/211853 Signed By: <Electronically signed by Alcides Moya MD> 11/11/211854 [facility] Work Phone: 1(432) 475-149008-25-2022 Miscellaneous Notes* Telephone Encounter - Gloria Perez APRN.CNP - 11/05/2021 1:45 PM EDT This has been noted. Gloria Perez APRN-ELDON * Telephone Encounter - Chiqui Vásquez RN - 11/05/2021 1:30 PM EDT Update shared with ELDON LOUISE. Chiqui Vásquez, CLAYTON, RN November 05, 2021 1:30 PM * [...] to in-health rehab. Currently she is at [facility] in [place] [facility] [address]. 2. * Telephone Encounter - Lyly Pedersen - 11/05/2021 1:04 PM EDT ----- Message from Gloria Perez APRN.WALL CRANE OPERATOR sent at 11/03/2021 8:01 AM EDT ----- [...] know. Thank you, Gloria [facility] History and physical note Author Enrrique Mota [facility] November 04, 2021 8:55pm Note Date/Time November 04, 2021 6: 26pm [facility] [address] [place] [address] Hospitalist H&P Signed Patient: Alton Barker MR#: [id number] : 1940 Acct:[id number] Age/Sex: 81 / F Adm Date: 2 Loc: Room: 0B4170-6 Type: ADM IN Attending Dr: Enrrique Mota MD Copies to: MD Honey Kearns,DO~ HPI DATE OF EXAMINATION: 11/04/21 HISTORY OF [...] History (Updated 11/04/21 @ 18:25 by Marvin Peter DO) Anxiety Diabetes DVT (deep venous thrombosis) [...] mg-vit E 90 mg-zinc 40 mg-copper 1 qu-yvdzyj-qgeyzc capsule (PreserVision AREDS-2) 1 tab PO BID [...] % (Auto) 20.3 % (.) 11/04/21 16:40 [place] % (Auto) 9.7 % (.) 11/04/21 16:40 Eos % (Auto) 1.7 % (.) 11/04/21 16:40 Baso % (Auto) 0.6 % (.) 11/04/21 16:40 Neut # (Auto) 5.3 x10E3/uL (1.8-7.7) 11/04/21 16:40 Lymph # (Auto) 1.6 x10E3/uL (1.00-4.8) 11/04/21 16:40 [place] # (Auto) 0.8 x10E3/uL (0.0-0.8) 11/04/21 16:40 [...] <Electronically signed by Enrrique Mota MD> 11/04/212054 [facility] Work Phone: 1(953) 829-132708-11-2022 Evaluation note* Encounter Date Diagnosis Assessment Notes [...] 2 weeks. Seen by Justin Nicolas PharmD [facility] Other 07-21-2022 Instructions* Patient Instructions* Gloria Perez APRN.CNP - 10/01/2021 12:59 PM EDT It was [...] or you can send a message through TalkSession. You can also now schedule and select appointments through TalkSession. Gloria Perez APRN.ELDON [facility] History of Present illness Narrative* Gloria Perez APRN.CNP - 10/01/2021 12:13 PM EDT [facility] - FOLLOW UP EVALUATION Honey Rabago, DO, DO [address] [facility] [address] I had the pleasure of seeing Ms. [...] loss is noticeable but LTM is good. [place] Cognitive Assessment (MoCA): 29 (02/03/2021 10:50 AM) [...] is now living with her son and whfmadpf-wi-hjv. She has not been taking her medication [...] 1.5 1.5 Effexor Level of service : 23686 (40-54 min). Time spent 49 (12:14pm-1:03pm) min on the day of service, which included preparing to see the patient, zoph-ch-qidc patient care, completing clinical documentation, obtaining and/or reviewing separately obtained history, performing a medically appropriate examination, counseling and educating the patient/family/caregiver and ordering medications, tests, or procedures. Gloria Perez APRN.ELDON documented in [facility] Evaluation note* Encounter Date Diagnosis Assessment Notes [...] 3 weeks. Seen by Juliana Ozuna RN [facility] Other 06-28-2022 NoteHISTORY: Bone density screening. COMPARISON: [...] and signed by Delgado Moya on 09/08/[address] [place], [place] 0576706-15-2022 Evaluation note* Encounter Date Diagnosis Assessment Notes [...] significant other. Seen by Juliana Ozuna RN [facility] Other 05-25-2022 Evaluation note* Encounter Date Diagnosis [...] INSTRUCTIONS: Please take as instructed above. Notify [facility] [phone] option 5 for the following: -Call immediately [...] person tells you to adjust your warfarin. [facility] Other 05-09-2022 Evaluation note* Encounter Date Diagnosis [...] significant other. Seen by Justin Nicolas PharmD [facility] Other 03-30-2022 Evaluation note* Encounter Date Diagnosis [...] family. Calendar provided. Seen by Anu Alva [facility]/Anuradha Case MENTAL HEALTH NURSE [facility] Fanminder Other 03-15-2022 Evaluation note* Encounter Date Diagnosis [...] she voiced understanding. Seen by Anu Alva [facility] [employer] Other 01-12-2022 Evaluation note* Encounter Date Diagnosis [...] 3 weeks. Seen by Justin Nicolas PharmD [facility] Other 12-15-2021 Evaluation note* Encounter Date Diagnosis [...] 4 weeks. Seen by Juliana Ozuna RN [facility] Other 11-17-2021 Evaluation note* Encounter Date Diagnosis [...] 4 weeks. Seen by Juliana Ozuna RN [facility] Other 09-29-2021 Evaluation note* Encounter Date Diagnosis [...] 4 weeks. Seen by Justin Nicolas PharmD [employer] Other Consult note Author Jairo Benson [facility] November 05, 2021 3:10pm Note Date/Time November 05, 2021 3: 10pm [facility] [address] [place] [address] Psychiatry Consult Note Signed Patient: Alton Barker MR#: [id number] : 1940 Acct:[id number] Age/Sex: 81 / F Adm Date: 2 Loc: 3T Room: [address] [place] [address] Type : ADM INOo Attending Dr: Enrrique [...] mg-vit E 90 mg-zinc 40 mg-copper 1 vk-egbauc-dohdpa capsule (PreserVision AREDS-2) 1 tab PO BID [...] Cloudy A Urine pH 5.5 Ur Specific [place] 1.029 Urine Protein 30 H Urine Glucose [...] signed by Jairo Benson MD> 11/05/21 1510 [facility] Work Phone: Consult note Author Oswaldo Almonte [facility] November 06, 2021 11:33am Note Date/Time November 06, 2021 11 :33am [facility] [address] [place] [address] Neurosurgery Consult Note Signed Patient: Alton Barker MR#: [id number] : 1940 Acct:[id number] Age/Sex: 81 / F Adm Date: 2 Loc: Room: [address] [place] [address] Type: ADM INOo Attending Dr: Enrrique Mota [...] mg-vit E 90 mg-zinc 40 mg-copper 1 yi-cjlkzz-nkkypz capsule (PreserVision AREDS-2) 1 tab PO BID [...] Cloudy A, Urine pH 5.5, Ur Specific [place] 1.029, Urine Protein 30 H, Urine Glucose [...] % (Auto) 67.7, Lymph % (Auto) 20.3, [place] % (Auto) 9.7, Eos % (Auto) 1.7, Baso % (Auto) 0.6, Neut # (Auto) 5.3, Lymph # (Auto) 1.6, [place] # (Auto) 0.8, Eos # (Auto) 0.1, [...] signed by MD Oswaldo Almonte> 11/06/21 1133 [facility] Work Phone: Discharge summary Author Gaye Claire [facility] November 11, 2021 5:21pm Note Date/Time November 10, 2021 11 :33am [facility] [address] [place] [address] Discharge Summary Signed Patient: Alton Barker MR#: [id number] : 1940 Acct:[id number] Age/Sex: 81 / F Adm Date: 2 Loc: Room: 0Z3425-[address]: Gaye Claire MD Copies to: Tonya Suh, ANP-BC MD Honey Collado,DO~ Providers Date of Admission: 11/04/21 Date [...] movement disorderspecialist Gloria Lal nurse practitioner at [facility] routinely. She was continued on her routine [...] 97 Room Air 11/10/21 08:00 11/10/21 08:00 11/10/21 03:02 11/10/21 08:34 11/10/21 08:00 11/10/21 08:00 Narrative: Alert, in chair, no distress at rest RRR no abnormal heart tones dimin without wheeze or rhonchi, RA S/NT, NABS, round no edema BLE, calves nontender Discharge Plan Discharge Plan Patient Disposition: Rehab [facility] Activity: No Activity Restriction Diet: Regular Additional [...] signed by Gaye Claire MD> 11/11/21 1721 [facility] Work Phone: Evaluation noteNo assessment information available [facility] [employer] Other Evaluation note* Diagnosis Recurrent episodes of unresponsiveness- Primary Parkinson's disease (HCC) Paralysis agitans Depression with anxiety Dysthymic disorder Fatigue, unspecified type Excessive daytime sleepiness [facility] Diagnosis Onset Date Resolution Status Back [...] cute Parkinsons disease acute Urinary tract infection acmo e [facility] Work Phone: Evaluation note* Diagnosis Onset Date [...] cute Parkinsons disease [facility] Work Phone: Evaluation note* Diagnosis Parkinson's disease (HCC) Paralysis agitans [facility] Diagnosis Parkinson's disease (HCC)- Primary Paralysis agitans Depression with anxiety Dysthymic disorder [facility]* Diagnosis Parkinson's disease without dyskinesia, with fluctuating manifestations- Primary Depression with anxiety Dysthymic disorder [facility] Diagnosis Parkinson's disease Paralysis agitans documented in this encounter [facility] general Narrative - Reported* Type Description Date Medical History diabetes mellitus Medical History coronary artery disease Medical History Hypothyroidism Medical History Esophageal reflux Medical History depression Medical History essential tremor Surgical History tonsillectomy Surgical History cholecystectomy Surgical History appendectomy Surgical History hemorrhoidectomy Surgical History colonoscopy Surgical History heart catheterization Hospitalization History see above [facility] [employer] Other History general N[facility]ative - [facility] Other Progress note Author Enrrique Mota [facility] November 06, 2021 7:31am Note Date/Time November 05, 2021 3: 01pm [facility] [address] [place] [address] Hospitalist Progress Note Signed Patient: Alton Barker MR#: [id number] : 1940 Acct:[id number] Age/Sex: 81 / F Adm Date: 2 Loc: Room: [address] [place] [address] Type: ADM INOo Attending Dr: Enrrique Mota MD Copies to: ~ Date of Service: 11/05/2021 Subjective Subjective Narrative: Patient seen and examined, sitting up in chair at time of exam. She is pleasant, mildly confused. She is oriented to self, knows she is at [facility]. Initially states year is 1921, then [...] 500 Mg Tablet PO 11/05/22 07:59 BID.WITH.MEALS KAYLIN Metoprolol Tartrate 75 mg 11/04/21 21:00 11/05/21 [...] where she lives with her son and gwhbtfon-gw-kwa Impaired mobility and ADLs Parkinson's disease ? Patient follows with neurology, Dr. Lal, and movement disorder specialist,Gloria Lal, ELDON, at [facility] ? Continue Sinemet ? PT/OT eval's Acute [...] signed by Enrrique Mota MD> 11/06/21 0731 [facility] Work Phone: Progress note Author Enrrique Mota [facility] November 07, 2021 4:52pm Note Date/Time November 06, 2021 11 :01am [facility] [address] [place] [address] Hospitalist Progress Note Signed Patient: Alton Barker MR#: [id number] : 1940 Acct:[id number] Age/Sex: 81 / F Adm Date: 2 Loc: Room: [address] [place] [address] Type: ADM INOo Attending Dr: Enrrique Mota MD Copies to: ~ Date of Service: 11/06/2021 Subjective Subjective Narrative: Patient is seen and examined. She is sitting up in bed at time of exam. When asked how she is feeling, she states not well, I am confused . She has howeveroriented to self, knows she is at [facility], and was able to tell me events surrounding her admission. She showed me a paper with long term facilities listed on it, and indicated that [...] where she lives with her son and yfbgmsis-aj-muf Impaired mobility and ADLs Parkinson's disease ? Patient follows with neurology, Dr. Lal, and movement disorder specialist,Gloria Lal, ELDON, at [facility] ? Continue Sinemet ? PT/OT recommending further [...] Barr> 11/06/21 1105 <Electronically signed by Enrrique Mota MD> 11/07/21 9601 [facility] Work Phone: Progress note Author Enrrique Mota [facility] November 07, 2021 4:47pm Note Date/Time November 07, 2021 11 :18am [facility] [address] [place] [address] Hospitalist Progress Note Signed Patient: Alton Barker MR#: [id number] : 1940 Acct:[id number] Age/Sex: 81 / F Adm Date: 2 Loc: Room: [address] [place] [address] Type: ADM INOo Attending Dr: Enrrique Mota [...] where she lives with her son and lghjtqvd-we-qzk Impaired mobility and ADLs Parkinson's disease ? Patient follows with neurology, Dr. Lal, and movement disorder specialist,Gloria Lal CNP, at [facility] ? Continue Sinemet ? PT/OT recommending further [...] <Electronically signed by Enrrique Mota MD> 11/07/21 1647 [facility] Work Phone: Progress note Author Enrrique Mota [facility] November 08, 2021 5:13pm Note Date/Time November 08, 2021 10 :47am [facility] [address] [place] [address] Hospitalist Progress Note Signed Patient: Alton Barker MR#: [id number] : 1940 Acct:[id number] Age/Sex: 81 / F Adm Date: 2 Loc: 3T Room: [address] [place] [address] Type: ADM INOo Attending Dr: Enrrique Mota [...] 11/06/21 07:30 11/08/21 06:58 Omeprazole 20 Mg Capsule. PO 11/06/22 07:29 [...] where she lives with her son and akgwvjtw-dr-nrn Impaired mobility and ADLs Parkinson's disease ? Patient follows with neurology, Dr. Lal, and movement disorder specialist,Gloria Lal, WALL CRANE OPERATOR, at [facility] ? Continue Sinemet ? PT/OT recommending further [...] <Electronically signed by Enrrique Mota MD> 11/08/21 0822 [facility] Work Phone: Progress note Author Gaye Claire [facility] November 10, 2021 4:37pm Note Date/Time November 09, 2021 1: 11pm [facility] [address] [place] [address] Hospitalist Progress Note Signed Patient: Alton Barker MR#: [id number] : 1940 Acct:[id number] Age/Sex: 81 / F Adm Date: 2 Loc: Room: [address] [place] [address] Type: ADM INOo Attending Dr: Gaye Claire [...] Dose Route Start Last Admin Trade Name Nakulq PRN Reason Stop Dose Admin Acetaminophen 1,000 [...] 11/06/21 07:30 11/09/21 07:03 Omeprazole 20 Mg Capsule. PO 11/06/22 07:29 [...] Lal, and movement disorder specialist, Gloria Lal WALL CRANE OPERATOR at [facility] ?Continue Sinemet UTI Ecoli ?ceftriaxone initiated 11/06, change to Cefdinir at CT for 7 day total course last dose 11/12 Depression ?Psychiatry evaluated. Remeron and Effexor initiated Chronic conditions 1. Hypothyroidism?levothyroxine 2. GERD?omeprazole 3. T2DM?metformin 4. hx DVT?Coumadin, pharmacy to dose, trend INR. INR was supratherapeutic on admit 5. Dyslipidemia?atorvastatin 6. Hypertension?metoprolol, BPs reviewed and controlled Documented By: WILFRID Samuels 2 1311 Signed By: <Electronically signed by WILFRID Suh> 11/09/21 1551 <Electronically signed by Gaye Claire MD> 11/10/21 4543 [facility] Work Phone: Progress note Author Gaye Claire [facility] November 11, 2021 5:21pm Note Date/Time November 10, 2021 5: 36pm [facility] [address] [place] [address] Hospitalist Progress Note Signed Patient: Alton Barker MR#: [id number] : 1940 Acct:[id number] Age/Sex: 81 / F Adm Date: 2 Loc: Room: [address] [place] [address] Type: DIS INOo Attending Dr: Gaye Claire [...] 11/06/21 07:30 11/10/21 05:59 Omeprazole 20 Mg Capsule.Dr PO 11/06/22 07:29 [...] movement disorder specialist, Gloria Lal CNP at [facility] ?Continue Sinemet UTI Ecoli ?ceftriaxone initiated [...] signed by Gaye Claire MD> 11/11/21 1721 [facility] Work Phone: Reason for referral (narrative)* Outpatient Procedure (Routine) - Pending Review Specialty Diagnoses / Procedures Referred By Contact Referred To Contact [facility] Diagnoses Recurrent episodes of unresponsiveness Procedures EPIL EEG ROUTINE ELECTROENCEPHALOGRAM REC COMA/SLEEP ONLY Gloria Perez APRN.CNP [address] [place] [address] [facility] [address] [place] [address] Referral ID Status Reason Start Date Expiration Date Visits Requested Visits Authorized [id number] Pending Review Auto-Generat ed Referral 10/04/2021 10/04/2022 1 1 [facility] Summary Purpose Family History No Family History [...] Referral Specialty Diagnoses / Procedures Referred By Contac t Referred To Contact Diagnoses Parkinson's disease (HCC) Procedures PROVIDER ORDERED FOLLOW UP OFFICE/OUTPATIENT [facility] 60-74 MINUTES Gloria Perez, SCHOOL OFFICE MANAGER.WALL CRANE OPERATOR [address] [place] [address] Referral ID Status Reason Start Date Expiration Date Visits Requested Visits Authorized [id number] Pending Review PCP Requested Referral 3 07/08/2023 1 1 Additional Source Comments INFORMATION SOURCE (unrecogn ized section and content) DATE CREATED AUTHOR 11/02/2017 [employer] DATE CREATED AUTHOR AUTHOR'S ORGANIZ ATION 09/09/2021 [facility] dical Specialist DATE CREATED AUTHOR AUTHOR'S ORGANIZ ATION 06/01/2022 [facility] DATE CREATED AUTHOR AUTHOR'S ORGANIZ ATION 07/23/2022 [facility] DATE CREATED AUTHOR AUTHOR'S ORGANIZ ATION 02/14/2023 [facility] DATE CREATED AUTHOR AUTHOR'S ORGANIZ ATION 03/29/2023 [facility] dical Specialists EPIC Goals (unrecognized section and content) Goals may [...] Disease Specialty Diagnoses / Procedures Referred By Contbertha t Referred To Contact Diagnoses Parkinson's disease Procedures PROVIDER ORDERED FOLLOW UP OFFICE/OUTPATIENT [facility] 60-74 MINUTES Gloria Perez, HEIDI.WALL CRANE OPERATOR [address] [place] [address] Referral ID Status Reason Start Date Expiration Date Visits Requested Visits Authorized [id number] Pending Review PCP Requested Referral 3 07/08/2023 1 1 Reason Comments Medication Problem Source Comments (unrecognize d section and content) In the event this informatio n is protected by the Federal Confidentiality of Alcohol and Drug Abuse Patient Records regulations: The Federal rules restrict any use of the information to criminally investigate or prosecute any alcohol or drug abuse patient.[facility] the event this information is protected by the Federal Confidentiality of Alcohol and Drug Abuse Patient Records regulations: The Federal rules restrict any use of the information to criminally investigate or prosecute any alcohol or drug abuse patient.[facility] the event this information is protected by the Federal Confidentiality of Alcohol and Drug Abuse Patient Records regulations: The Federal rules restrict any use of the information to criminally investigate or prosecute any alcohol or drug abuse patient.[facility] the event this information is protected by the Federal Confidentiality of Alcohol and Drug Abuse Patient Records regulations: The Federal rules restrict any use of the information to criminally investigate or prosecute any alcohol or drug abuse patient.[facility] the event this information is protected by the Federal Confidentiality of Alcohol and Drug Abuse Patient Records regulations: The Federal rules restrict any use of the information to criminally investigate or prosecute any alcohol or drug abuse patient.[facility] the event this information is protected by the Federal Confidentiality of Alcohol and Drug Abuse Patient Records regulations: The Federal rules restrict any use of the information to criminally investigate or prosecute any alcohol or drug abuse patient.[facility] Hospital[facility] the event this information is protected by the Federal Confidentiality of Alcohol and Drug Abuse Patient Records regulations: The Federal rules restrict any use of the information to criminally investigate or prosecute any alcohol or drug abuse patient.[facility] the event this information is protected by the Federal Confidentiality of Alcohol and Drug Abuse Patient Records regulations: The Federal rules restrict any use of the information to criminally investigate or prosecute any alcohol or drug abuse patient.[facility] Hospital[facility] the event this information is protected by the Federal Confidentiality of Alcohol and Drug Abuse Patient Records regulations: The Federal rules restrict any use of the information to criminally investigate or prosecute any alcohol or drug abuse patient.[facility] Care Teams (unrecognized sec tion and content) Team Status: Active Member Role Status Dates Honey Vaschak , DO Primary Care Provider Active Team Status: Inactive Member Role Status Dates Honey Rabago , DO Primary Care Provider, Attending Paula mock Active Team Status: Inactive Member Role Status Dates Honey Rabago , DO Primary Care Provider Active Alcides Moya MD Admit Provider, Attending Provider A rico Mehta , KORTNEY Other Provider Active Sasha Hannah , KORTNEY Other Provider Active Nadia Dutton , RN Other Provider Active Anuradha Garrett , RN Other Provider Active Karen Smith , KORTNEY Other Provider Active Erika Ayon , KORTNEY Other Provider Active Familia Villatoro MD Other Provider Active Misha Ziegler MD Other Provider Active Chery Coronado SCHOOL OFFICE MANAGER Other Provider Active José Miguel Tellez , [...] MD Other Provider Active Faustina Barr , OPERATIONS RECRUITER-C Other Provider Active Valente Lauren MD Other Provider Active Kareem Elizondo MD Other Provider Active Italia Colbert MD Other Provider Active Ronan Davidson MD Other Provider Active Shantel Nayak , DO Other Provider Active Kaylie Mooney MD Other Provider Active Michael Del Rio , DO Other Provider Active Sony Canela , DO Other Provider Active Amanda Jaimes SCHOOL OFFICE MANAGER Other Provider Active Lázaro Pratt , DO [...] Active Gaye Claire MD Attending Provider Active Green Marketing Analyst Relationship Specialty Start Date End Date Honey Rabago, DO [address] [place] [address] PCP - General 02/16/05 Green Marketing Analyst Relationship Specialty Start Date End Date Honey Rabago, DO [address] [place] [address] PCP - General 02/16/05 Green Marketing Analyst Relationship Specialty Start Date End Date Honey Rabago, DO [address] [place] [address] PCP - General 02/16/05 Team Status: Active Member Role Status Dates Honey Rabago , Primary Care Provider Active Alcides Moya MD Admit Provider, Attending Provider A ctive Maggy Mehta , KORTNEY Other Provider Active Sasha Hannah , KORTNEY Other Provider Active Nadia Dutton , KORTNEY Other Provider Active Anuradha Garrett , KORTNEY Other Provider Active Karen Smith , KORTNEY Other Provider Active Erika Ayon , KORTNEY Other Provider Active Familia Villatoro MD Other Provider Active Misha Ziegler MD Other Provider Active Chery Coronado APRN Other Provider Active José Miguel Tellez , Other Provider Active George Chan MD Other [...] MD Other Provider Active Faustina Barr , OPERATIONS RECRUITER-C Other Provider Active Valente Lauren MD Other [...] Other Provider Active Lee Ann Terry , RN Other Provider Active Team Status: Inactive [...] Primary Care Provider, Attending Paula mock Active Green Marketing Analyst Relationship Specialty Start Date End Date DaniloHoney telles, DO [address] [place] [address] PCP - General 02/16/05 Green Marketing Analyst Relationship Specialty Start Date End Date MukulHoney chavarria, DO [address] [place] [address] PCP - General 02/16/05 Green Marketing Analyst Relationship Specialty Start Date End Date DaniloHoney telles, DO [address] [place] [address] PCP - General 02/16/05 Green Marketing Analyst Relationship Specialty Start Date End Date HimaHoney, DO [address] [place] [address] PCP - General 02/16/05 Green Marketing Analyst Relationship Specialty Start Date End Date MukulHoney chavarria DO [address] [place] [address] PCP - General 02/16/05 Green Marketing Analyst Relationship Specialty Start Date End Date MukulHoney chavarria DO [address] [place] [address] PCP - General 02/16/05 FOR RECORDS PERTAINING [...] BE BASED ON THE PRIMARY CLINICAL RECORDS. [facility] [employer] [facility]. provides no warranty or guarantee of the accuracy or completeness of information in this document.
== END 2023-04-01 01:33 | disposition home or self-care (01) ==
LOC: LAB 01:32
PROVIDERS: PCP Internal Medicine
DX: R60.0 Localized edema (principal)
CPT/HCPCS: 36415; 83880

== ENCOUNTER 2023-04-13 12:18 | Outpatient (OUT) | payer MEDICARE, SELFPAY ==
--- OUTSIDE RECORDS SUMMARY | 2023-04-13 12:22 | XMS_ITS | CCD ---
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 Name Role Phone Honey Rabago Primary Care Provider Honey Rabago Attending Provider Anu Alva Unavailable Honey Rabago DO Primary Care Provider Honey Rabago DO Primary Care Provider Oswaldo Almonte Unavailable DO Honey Rabago Primary Care Provider DO Sumanth Lowe Emergency Provider DO Holger Dorado Emergency Provider DO Honey Rabago Attending Provider DO Marvin Peter Emergency Provider [phone] MD Enrrique Mota Admit Provider [phone] MD Jairo Benson Other Provider [phone] MD Oswaldo Almonte Other Provider MD [...] Unavailable DO Honey Rabago Primary Care Provider [phone] DO Marvin Peter Emergency Provider [phone] MD Enrrique Mota Admit Provider MD Jairo Benson Other Provider [phone] MD Oswaldo Almonte Other Provider MD Gaye Claire Attending Provider MD Alcides Moya Admit Provider MD Alcides Moya Attending Provider KORTNEY Mehta Other Provider Unavailable KORTNEY Hannah Other Provider Unavailable KORTNEY Dutton Other Provider Unavailable KORTNEY Garrett Other Provider Unavailable KORTNEY Smith Other Provider Unavailable KORTNEY Ayon Other Provider Unavailable MD Famliia Villatoro Other Provider MD Misha Ziegler Other Provider Dials, HEAT TREATING BLUER Chery M Other Provider DO José Miguel Tellez Other Provider MD Goerge Chan Other Provider DO Justice De Oliveira Other Provider MD Enrrique Mota Other Provider [phone] MD Rosa Maria Odell Other Provider Angeli ANP-BC Tonya Other Provider [phone] MD Juan Walalce Other Provider [phone] MD Jerson Walker [...] Other Provider DO Lázaro Pratt Other Provider [phone] MD Corona Weathers Other Provider KORTNEY Terry Other Provider Unavailable DO Honey Rabago Attending Provider [phone] Honey Rabago DO Primary Care Provider DO [...] Consulting Unavailable Justice De Oliveira Consulting Unavailhardik Lawrecneescu, Enrrique Consulting Unavailable Semayelenae, Rosa Maria Consulting Unavailable Tonya Suh Consulting Unavailable Juna Wallace Consulting Unavailable Jerson Walker Consulting Unavailable Gaye Claire Consulting Unavailable Qutea Mclain Consulting Unavailable Rd Blackmon Consulting Unavailable [...] (1 source) buPROPion Drug Allergy 08-01-19 Hallucinating [facility] Latex (1 source) Latex Substance Allergy 08-01-19 Rash [facility] Opioid Agonists (1 source) HYDROcodone Drug Allergy 08-01-19 Unknown Reaction [facility] (20 sources) Acetaminophen / HYDROcodone; Translations: [Vicodin] Drug Allergy Unknown [facility] Repository (20 sources) buPROPion; Translations: [BUPROPION] Drug Allergy 01-19-20 Mental Status Change [facility] Work Phone: (20 sources) Latex Propensity to adverse reactions 11-05-19 Unknown, Rash [facility] (10 sources) Acetaminophen / HYDROcodone; Translations: [HYDROCODONE-ACET AMINOPHEN] Drug Allergy 04-13-19 Mental Status Change [facility] (10 sources) Adhesive Tape; Translations: [ADHESIVE TAPE (ROSINS)] Allergy to substance 01-13-20 [facility] Work Phone: (10 sources) Latex; Translations: [LATEX, NATURAL RUBBER] Drug Allergy 04-13-19 [facility] (10 sources) rosuvastatin; Translations: [ROSUVASTATIN CALCIUM] Drug Allergy 01-13-20 Unknown [facility] Work Phone: (6 sources) HYDROcodone; Translations: [hydrocodone] Drug Allergy 11-05-19 22 Unknown Reaction [facility] (1 source) buPROPion Drug Allergy 11-05-19 [facility] Repository (1 source) Latex Drug allergy (disorder) 11-05-19 [facility] Repository (1 source) natural latex rubber Drug allergy (disorder) [facility] Repository Medications Current Medications Medication Drug Class(es) [...] 01/18/2023: Pt takes 2 tabs daily per [facility] list 0 Active take 1 tablet by rc th every six hours as needed Acetaminophen 500 MG 1 tablet as needed Orally every 6 hrs Active Comment on above: Take 500 mg by mouth every 8 hours as needed. 01/18/2023: Pt takes 2 tabs daily per [facility] Aspir-81 (16 sources) Aspir-81 Active [...] 3:32pm Start: 11-04-2021 [facility] tablet [facility] morning Cholecalciferol (Vitamin D3) (Vitamin D3) 125 mcg (5,000 unit) Tablet Active 125 MCG PO Every morning November 04, 2021 12:00am cholecalciferol (VITAMIN D3) 5,000 unit tab Take by mouth once daily. 0 Active take 1 capsule by [facility] once daily Cholecalciferol 125 MCG (5000 UT) [...] November 04, 2021 5:03pm polyethylene glycol [id number] mg powder for oral solution (15 sources) [...] Vitamin C Start: 02-22-2017 End: 07-10-2017 Vit N-Z-Gfvaek-Zinc-Lute in (Preservision Lutein) 226 mg-200 unit -5 [...] Start: 11-10-2021 take 2 tablets by mo [facility] twice daily Sennosides-Docusate Sodium (Stool Softener-Stimulant Laxat) [...] Comment on above: [facility]. gabapentin 300 mg oral capsule (7 sources) Anti-epileptic Agent Start: 01-26-2022 End: 01-20-2023 take 1 capsule by mouth once daily at bedtime gabapentin (NEURONTIN) 300 mg capsule Take 300 mg by mouth daily at bedtime. 0 01/26/2022 01/20/2023 Discontinued (Course of therapy completed) take 1 capsule by mo [facility] every twenty-four hours Gabapentin 300 MG 1 [...] 0 Active take 2 tablets by mo [facility] every twelve hours Metoprolol Tartrate 37.5 MG [...] daily. Take 75 mg by mouth. Vit C,O-Ho-Nvlui-Lutei n-Zeaxan (Preservision Areds-2) 231-502-88-1 sv-ygwa-en-mg Capsule (6 sources) Start: 01-18-2017 End: 07-10-2017 take 1 tablet by mouth once daily at bedtime Vit C,R-Id-Atbqs-Lutein-Ze axan (Preservision Areds-2) 892-957-65-1 en-krvj-ya-mg Capsule Discontinued 1 TAB PO every day in the morning and at bedtime January 18, 2017 7:43am July 10, 2017 6:45pm Start: 01-18-2017 End: 07-10-2017 take 1 tablet by mouth once daily at bedtime Vit C,E-Cg-Yxums-Lutein-Zeaxan (Preservision Areds-2) 044-223-81-1 sb-rzlw-on-mg Capsule Discontinued 1 TAB PO every day in the morning and at bedtime January 18, 2017 12:00am July 10, 2017 5:45pm Start: 01-18-2017 End: 07-10-2017 take 1 tablet by mouth once daily at bedtime Vit C,X-Gw-Kudlc-Lutein-Zeaxan (Preservision Areds-2) 833-524-71-1 ru-dvbx-hx-mg Capsule Discontinued 1 TAB PO every day in the morning and at bedtime January 18, 2017 1:00am July 10, 2017 6:45pm Vit C,O-Pu-Cplwl-Lutein-Zeax an (Preservision Areds-2) 250-90-40-1 mg Capsule (5 sources) Start: 11-04-2021 End: 11-25-2021 Vit C,Q-Xt-Fnibb-Lutein-Zeax an (Preservision Areds-2) 250-90-40-1 mg Capsule Discontinued 1 TAB PO Twice daily November 03, 2021 11:00pm November 25, 2021 3:32pm Start: 11-04-2021 End: 11-25-2021 Vit C,V-Vh-Xqjvn-Lutein-Zeax an (Preservision Areds-2) 250-90-40-1 mg Capsule Discontinued 1 TAB PO Twice daily November 04, 2021 12:00am November 25, 2021 4:32pm Start: 11-04-2021 Vit C,E-Zn-Subway Operator vv-Utyqpx-Zkiknr (Preservision Areds-2) 250-90-40-1 mg Capsule Active 1 [...] sources) Long-term current use of anticoagulant; Translations: [long-term (current) use of anticoagulants] 11-09-2021 Episodic Other [...] Resolved: 12-01-2021 Episodic Other aftercare (13 sources) long-term (current) use of anticoagulants; Translations: [Long-term (current) [...] Moya, DO Normal Not Available [facility] 02-11-2023 [facility] Telephone (WALTERKYMicaela) -- ALTON BARKER ([id number]) 1940 F Date Time Provider Department 02/11/23 GLORIA PEREZ During your visit today, we recorded the following information about you: Mary Anne Beatty 02/11/2023 1:54 PM Signed [facility]- [facility] [id number] [place] [address] - [address] [id number] carbidopa-levodopa (SINEMET 25-100) 25-100 mg per tablet Patient son called in today in regards to medication and wanting to switch pharmacy, they were told the best way to do this would be to request a new prescription. They would like it sent to [facility] Thank you! Anu Hillman RN 02/11/2023 2:59 [...] Date Reviewed: 01/20/2023 Reviewed by: Gloria Perez APRN.INSPECTOR TYPE - Fully Assessed Reason for Visit: Medication [...] 01/18/2023: Pt takes 2 tabs daily per [facility] med list - MEDICATION, NON-DATABASE 750 mg [...] Of Date 02/11/2023 Noted Resolved OSTEOARTHROS KNEE [[id number]] 06/29/2012 Parkinson's disease without dyskinesia, with fl*03/02/2018 Obesity, Class I, BMI 30-34.9 [E66.9] 07/08/2022 Depression with anxiety [F41.8] 01/20/2023 Encounter Status:Closed by MARY ANNE BEATTY on 02/11/23 [facility] Alesha 01-20-2023 CNOV Office Visit (NRMDN) -- ALTON BARKER ([id number]) 1940 F Date Time Provider Department 01/20/23 3:00 PM CHRISGLORIA During your visit today, we recorded the following information about you: Height 1.676 m ChrisGloria APRN.[facility] 01/24/2023 12:36 PM Signed [facility] - FOLLOW UP EVALUATION Honey Rabago DO [address] [facility] [address] Dear Honey Rabago DO: I had the pleasure of seeing Ms. aBrker for follow-up today. As you know she [...] Change halluc (more content not included)... Normal [facility] CULTURE URINEon 07-16-2022 CULTURE URINE Isolate 1 [...] F Trimethoprim/Sulfamethoxaz ole <=20 S F Normal [facility] Comment on above: Performed By: #### U RCX #### [facility] Laboratory [address] [place] [address] Dr. Joyce Strauss UA (CLEAN/CATCH) PHARMACY OPERATIONS MANAGER/MICRO I F IND.on 2022 Bilirubin Ql (U) Negative Normal NEGATIVE [facility] Comment on above: Performed By: #### U MICRO, UACSIND #### [facility] [address] [place] [address] Dr. Joyce Strauss Clarity (U) CLEAR Normal CLEAR [facility] Comment on above: Performed By: #### U MICRO, UACSIND #### [facility] [address] [place] [address] Dr. Joyce Strauss Color (U) LT. YELLOW Normal YELLOW [facility] Comment on above: Performed By: #### U MICRO, UACSIND #### [facility] [address] [place] [address] Dr. Joyce Strauss Glucose Ql (U) Negative Normal NEGATIVE [facility] Comment on above: Performed By: #### U MICRO, UACSIND #### [facility] [address] [address] [address] Joyce Strauss Hemoglobin Ql (U) Negative Normal NEGATIVE [facility] Comment on above: Performed By: #### U MICRO, UACSIND #### [facility] [address] [address] [address] Joyce Strauss Ketones Ql (U) Negative Normal NEGATIVE [facility] Comment on above: Performed By: #### U MICRO, UACSIND #### [facility] [address] [address] [address] Joyce Strauss LEUKOCYTES LARGE Abnormal NEGATIVE [facility] Comment on above: Performed By: #### U MICRO, UACSIND #### [facility] [address] [address] [address] Joyce Strauss Nitrite Ql (U) Positive Abnormal NEGATIVE [facility] Comment on above: Performed By: #### U MICRO, UACSIND #### [facility] [address] [address] [address] Joyce Strauss pH (U) 5.5 [pH] Normal 5-9 [facility] Comment on above: Performed By: #### U MICRO, UACSIND #### [facility] [address] [address] [address] Joyce Strauss SPEC GRAVITY 1.010 Normal 1.005-<=1. 025 [facility] Comment on above: Performed By: #### U MICRO, UACSIND #### [facility] [address] [address] [address] Joyce Strauss UA PROTEIN TRACE Normal NEGATIVE/ TRACE [facility] Comment on above: Performed By: #### U MICRO, UACSIND #### [facility] [address] [address] [address] Joyce Strauss UR MICRO IND INDICATED Normal [facility] Comment on above: Performed By: #### U MICRO, UACSIND #### [facility] [address] [place] [address] Dr. Joyce Strauss Urobilinogen Qn (U) 0.2 {Cam'U}/dL Normal 0.2 - 1. 0 [facility] Comment on above: Performed By: #### U MICRO, UACSIND #### [facility] [address] [address] [address] Joyce Strauss URINE MICROSCOPIC ONLYon BACTERIA LARGE Abnormal NONE SEEN [facility] Comment on above: Performed By: #### U MICRO, UACSIND #### [facility] [address] [place] [address] Dr. Joyce Strauss Bacteria identified Cx Nom (U) INDICATED Normal [facility] Comment on above: Performed By: #### U MICRO, UACSIND #### [facility] [address] [place] [address] Dr. Joyce Strauss CA OX CRYSTALS RARE Normal [facility] Comment on above: Performed By: #### U MICRO, UACSIND #### [facility] [address] [place] [address] Dr. Joyce Strauss CAST NONE SEEN Normal NONE SEEN [facility] Comment on above: Performed By: #### U MICRO, UACSIND #### [facility] [address] [place] [address] Dr. Joyce Strauss Crystals LM Nom (Urine sed) SEEN Abnormal NONE SEEN [facility] Comment on above: Performed By: #### U MICRO, UACSIND #### [facility] [address] [place] [address] Dr. Joyce Strauss Epithelial cells LM Ql (Urine sed) FEW Abnormal NONE SEEN /RARE [facility] Comment on above: Performed By: #### U MICRO, UACSIND #### [facility] [address] [place] [address] Dr. Joyce Strauss MUCOUS NONE SEEN Normal NONE SEEN [facility] Comment on above: Performed By: #### U MICRO, UACSIND #### [facility] [address] [place] [address] Dr. Joyce Strauss RBC NONE SEEN Abnormal 0-2 [facility] Comment on above: Performed By: #### U MICRO, UACSIND #### [facility] [address] [place] [address] Dr. Joyce Strauss WBC (U) [#/Vol] /uL Abnormal NONE SEEN [facility] Comment on above: Performed By: #### U MICRO, UACSIND #### [facility] [address] [address] [address] Joyce Strauss CNOVon 07-08-2022 CNOV Office Visit (NRMDN) -- ALTON BARKER Jakob ([id number]) 1940 F Date Time Provider Department 07/08/22 3:00 PM GLORIA PEREZ NRN During your visit today, we recorded the following information about you: Weight Height 85.1 kg 1.676 m Gloria Perez APRN.INSPECTOR TYPE 07/11/2022 5:23 PM Signed [facility] - FOLLOW UP EVALUATION Honey Rabago DO, DO [address] [facility] [address] Dear Honey Rabago DO, DO: I had [...] She likes the staff. 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 Normal [facility] CULTURE URINEon 06-03-2022 CULTURE URINE Isolate 1 [...] Trimethoprim/Sulfamethoxaz ole <=20 S F Normal [facility] Comment on above: Performed By: #### U RCX #### [facility] [address] [address] [address] Joyce Strauss UA RANDOMon 06-01-2022 Bilirubin Ql (U) Negative Normal NEGATIVE [facility] Comment on above: Performed By: #### U A #### [facility] [address] [place] [address] Dr. Joyce Strauss Clarity (U) CLOUDY Abnormal CLEAR [facility] Comment on above: Performed By: #### U A #### [facility] [address] [place] [address] Dr. Joyce Strauss Color (U) YELLOW Normal YELLOW [facility] Comment on above: Performed By: #### U A #### [facility] [address] [place] [address] Dr. Joyce Strauss Glucose Ql (U) Negative Normal NEGATIVE [facility] Comment on above: Performed By: #### U A #### [facility] [address] [place] [address] Dr. Joyce Strauss Hemoglobin Ql (U) MODERATE Abnormal NEGATIVE [facility] Comment on above: Performed By: #### U A #### [facility] [address] [place] [address] Dr. Joyce Strauss Ketones Ql (U) Negative Normal NEGATIVE [facility] Comment on above: Performed By: #### U A #### [facility] [address] [place] [address] Dr. Joyce Strauss LEUKOCYTES LARGE Abnormal NEGATIVE [facility] Comment on above: Performed By: #### U A #### [facility] [address] [place] [address] Dr. Joyce Strauss Nitrite Ql (U) Positive Abnormal NEGATIVE [facility] Comment on above: Performed By: #### U A #### [facility] [address] [place] [address] Dr. Joyce Strauss pH (U) 6.0 [pH] Normal 5-9 [facility] Comment on above: Performed By: #### U A #### [facility] [address] [place] [address] Dr. Joyce Strauss SPEC GRAVITY 1.010 Normal 1.005-<=1. 025 [facility] Comment on above: Performed By: #### U A #### [facility] [address] [place] [address] Dr. Joyce Strauss UA PROTEIN 100 mg/dl Abnormal NEGATIVE/ TRACE [facility] Comment on above: Performed By: #### U A #### [facility] [address] [address] [address] Jyoce Strauss Urobilinogen Qn (U) 1.0 {Cam'U}/dL Normal 0.2 - 1. 0 [facility] Comment on above: Performed By: #### U A #### [facility] [address] [address] [address] Joyce Spence 02-15-2022 CNPN Telephone (NRMDN) -- ALTON BARKER ([id number]) 1940 F Date Time Provider Department 02/15/22 GLORIA PEREZ During your visit today, we recorded the following information about you: Gloria Perez APRN.INSPECTOR TYPE 02/15/2022 1:56 PM Signed I tried callingGina, the hospital social worker in her primary care provider's office. I left a message requesting a call back. Gloria Perez APRN-INSPECTOR TYPE Allergies As of Date: 02/15/2022 Noted Allergy [...] capsule Take 75 mg by mouth. - [employer] Holding[employer]VONET VIVIAN 2 SENSOR kit apply 1 SENSOR [...] Of Date 02/15/2022 Noted Resolved OSTEOARTHROS KNEE [[id number]] 06/29/2012 Parkinson's disease (HCC) [G20] 03/02/2018 Prescriptions [...] Status:Closed by GLORIA PEREZ on 02/15/22 Normal [facility] Urine culture routineOrdered By: Honey Rabago on 01-01-2022 Bacteria identified Cx Nom (U) Escherichia coli [facility] Automated erythrocytes count in urine sediment (number/area)Ordered By: Honey Rabago on 12-30-2021 RBC Auto (Urine sed) [#/Area] 3-4 [HPF] 0-4 [facility] Automated leukocytes count i n urine sediment (number/area)Ordered By: Honey Rabago on 12-30-2021 WBC Auto (Urine sed) [#/Area] 50-100 [HPF] 0-4 [facility] Automated urine color determ inationOrdered By: Honey Rabago on 12-30-2021 Color (U) Yellow Normal Yellow [facility] Comment on above: Order Comment: Name Collection Type:: Clean-Voided Midstream Performed By: #### G LULS #### Point of Care testing , Bilirubin Test strip Ql (U)O rdered By: Honey Rabago on 12-30-2021 Bilirubin Ql (U) Negative Negative [facility] Dipstick and Microscopicon 1 Appearance (U) Cloudy Critically abnormal Clear [facility] Comment on above: Order Comment: Name Collection Type:: Clean-Voided Midstream Performed By: #### G LULS #### Point of Care testing , Bacteria,Urine 1+ High None Seen [facility] Comment on above: Order Comment: Name Collection Type:: Clean-Voided Midstream Performed By: #### G LULS #### Point of Care testing , Bilirubin,Urine Negative Normal Negative [facility] Comment on above: Order Comment: Name Collection Type:: Clean-Voided Midstream Performed By: #### G LULS #### Point of Care testing , Glucose Ql (U) Normal Normal Normal [facility] Comment on above: Order Comment: Name Collection Type:: Clean-Voided Midstream Performed By: #### G LULS #### Point of Care testing , Hyaline Casts,Urine 0-8 Normal 0-8 [facility] Comment on above: Order Comment: Name Collection Type:: Clean-Voided Midstream Result Comment: PERF ORMED BY: [facility] [address] [place] [address] PATHOLOGIST COAL YARD SUPERVISOR FLIP GERMAN M.D. Performed By: #### G LULS #### Point of Care testing , Ketones Ql (U) Negative Normal Negative [facility] Comment on above: Order Comment: Name Collection Type:: Clean-Voided Midstream Performed By: #### G LULS #### Point of Care testing , Leukocyte esterase Test strip Ql (U) 3+ High Negative [facility] Comment on above: Order Comment: Name Collection Type:: Clean-Voided Midstream Performed By: #### G LULS #### Point of Care testing , Nitrite,Urine Positive High Negative [facility] Comment on above: Order Comment: Name Collection Type:: Clean-Voided Midstream Performed By: #### G LULS #### Point of Care testing , Occult Blood,Urine Negative Normal Negative [facility] Comment on above: Order Comment: Name Collection Type:: Clean-Voided Midstream Result Comment: PERF ORMED BY: [facility] [address] [place] [address] PATHOLOGIST [employer] SUPERVISOR FLIP GERMAN M.D. Performed By: #### G LULS #### Point of Care testing , Othe Crystals,Urine None Seen Normal [facility] Comment on above: Order Comment: Name Collection Type:: Clean-Voided Midstream Performed By: #### G LULS #### Point of Care testing , Protein,Urine Trace High Negative [facility] Comment on above: Order Comment: Name Collection Type:: Clean-Voided Midstream Performed By: #### G LULS #### Point of Care testing , RBC,Urine 3-4 Normal 0-4 [facility] Comment on above: Order Comment: Name Collection Type:: Clean-Voided Midstream Performed By: #### G LULS #### Point of Care testing , Specificy [place],Urine 1.017 Normal 1.001-1.03 0 [facility] Comment on above: Order Comment: Name Collection Type:: Clean-Voided Midstream Performed By: #### G LULS #### Point of Care testing , Squamous Epithelial Cell,Urine 1-2 Normal 0-2 [facility] Comment on above: Order Comment: Name Collection Type:: Clean-Voided Midstream Performed By: #### G LULS #### Point of Care testing , Urobilinogen,Urine Normal Normal Normal [facility] Comment on above: Order Comment: Name Collection Type:: Clean-Voided Midstream Performed By: #### G LULS #### Point of Care testing , WBC,Urine 50-100 High 0-4 [facility] Comment on above: Order Comment: Name Collection Type:: Clean-Voided Midstream Performed By: #### G LULS #### Point of Care testing , Ketones Auto test strip (U) [Mass/Vol]Ordered By: Honey Rabago on 12-30-2021 Ketones (U) [Mass/Vol] Negative Negative [facility] Laboratory - UrinalysisOrder ed By: Honey Rabago on 12-30-2021 Hyaline casts LM Ql (Urine sed) 0-8 [LPF] 0-8 [facility] Nitrite Test strip Ql (U)Ord ered By: Honey Rabago on 12-30-2021 Nitrite Ql (U) Positive Negative [facility] Protein Auto test strip (U) [Mass/Vol]Ordered By: Honey Rabago on 12-30-2021 Protein (U) [Mass/Vol] Trace mg/dL Negative [facility] Specific gravity Auto test s trip (U) [Rel density]Ordered By: Honey Rabago on 12-30-2021 Specific gravity (U) [Rel density] 1.017 1.001-1.03 0 [facility] Squamous epithelial cells de tection in urine sediment by light microscopyOrdered By: Honey Rabago on 12-30-2021 Epithelial cells.squamous LM Ql (Urine sed) 1-2 [HPF] 0-2 [facility] Urine Cultureon 12-30-2021 Bacteria identified Cx Nom (U) ORGANISM: Escherichia coli (O:ESCCOL) [place] Count >100,000 Aerobic JIMMY Charge (NUC86) SUSCEPTIBILITY [...] RESISTANT TO ALL B-LACTAM DRUGS. PERFORMED BY: [address] [place] [address] PATHOLOGIST [employer] SUPERVISOR FLIP GERMAN M.D. Normal [facility] Comment on above: Performed By: #### G LULS #### Point of Care testing , Urine bacteria detection by automated methodOrdered By: Honey Rabago on 10-19-2022 Bacteria Auto Ql (U) 1+ None Seen [facility] Urine clarity by refractomet ry automatedOrdered By: Honey Rabago on 12-30-2021 Clarity Refractometry automated (U) Cloudy Clear [facility] Urine glucose measurement by automated test strip (mass/volume)Ordered By: Honey Rabago on 12-30-2021 Glucose Auto test strip (U) [Mass/Vol] Normal mg/dL Normal [facility] Urine hemoglobin detection b y automated test stripOrdered By: Honey Rabago on 12-30-2021 Hemoglobin Auto test strip Ql (U) Negative Negative [facility] Urine leukocyte esterase det ection by automated test stripOrdered By: Honey Rabago on 12-30-2021 Leukocyte esterase Auto test strip Ql (U) 3+ Negative [facility] Urine pH measurement by auto mated test stripOrdered By: Honey Rabago on 12-30-2021 pH (U) 8.5 [pH] Normal 5.0-9.0 [facility] Comment on above: Order Comment: Name Collection Type:: Clean-Voided Midstream Performed By: #### G LULS #### Point of Care testing , Urine sediment crystal ident ification by light microscopyOrdered By: Honey Rabago on 12-30-2021 Crystals LM Nom (Urine sed) None seen [HPF] [facility] Urobilinogen Auto test strip (U) [Mass/Vol]Ordered By: Honey Rabago on 12-30-2021 Urobilinogen (U) [Mass/Vol] Normal mg/dL Normal [facility] PROTIMEon 12-21-2021 INR Coag (PPP) [Relative time] 2.34 {INR} Normal [facility] Comment on above: Performed By: #### P T #### [facility] [address] [address] [address] Joyce Strauss INR GUIDELINES SEE BELOW Normal [facility] Comment on above: Result Comment: GUDELIA RED INR: 2.0 - 3.0 CONDITIONS NOT LISTED BELOW 2.5 - 3.5 FOR PROSTHETIC HEART VALVE REPLACEMENT 2.5 - 3.5 RECURRENT THROMBOSIS Performed By: #### P T #### [facility] [address] [address] [address] Joyce Strauss PT Coag (PPP) [Time] 23.9 s Critically high 9.0-11.6 [facility] Comment on above: Performed By: #### P T #### [facility] [address] [place] [address] Dr. Joyce Strauss PROTIMEon 12-14-2021 INR GUIDELINES SEE BELOW Normal [facility] Comment on above: Result Comment: GUDELIA RED INR: 2.0 - 3.0 CONDITIONS NOT LISTED BELOW 2.5 - 3.5 FOR PROSTHETIC HEART VALVE REPLACEMENT 2.5 - 3.5 RECURRENT THROMBOSIS Performed By: #### P T #### [facility] [address] [place] [address] Dr. Joyce Strauss PT Coag (PPP) [Time] 20.6 s Critically high 9.0-11.6 [facility] Comment on above: Performed By: #### P T #### [facility] [address] [place] [address] Dr. Joyce Strauss Prothrombin Time INRon 12-14 Prothrombin Time INR [facility] [employer] Other INR Coag (PPP) [Relative time] 2.00 {INR} Normal [facility] Other Comment on above: Performed By: #### P T #### [facility] [address] [place] [address] Dr. Joyce Strauss PROTIMEon 11-30-2021 INR GUIDELINES SEE BELOW Normal [facility] Comment on above: Result Comment: GUDELIA RED INR: 2.0 - 3.0 CONDITIONS NOT LISTED BELOW 2.5 - 3.5 FOR PROSTHETIC HEART VALVE REPLACEMENT 2.5 - 3.5 RECURRENT THROMBOSIS Performed By: #### P T #### [facility] [address] [place] [address] Dr. Joyce Strauss PT Coag (PPP) [Time] 25.9 s Critically high 9.0-11.6 [facility] Comment on above: Performed By: #### P T #### [facility] [address] [place] [address] Dr. Joyce Strauss Prothrombin Time INRon 11-30 Prothrombin Time INR [facility] [employer] Other INR Coag (PPP) [Relative time] 2.55 {INR} Normal [facility] [employer] Other Comment on above: Performed By: #### P T #### [facility] [address] [place], [place] [address] Dr. Joyce Strauss Glucose Glucometer (dC) [M ass/Vol]Ordered By: Alcides Moya on 11-25-2021 Glucose [Mass/Vol] 125 mg/dL [facility] Comment on above: Random Glucose Refer ence Range is dependent on time and content of last meal. Glucose of more than 200 mg/dL in a nonstressed, ambulatory subject supports the diagnosis of Diabetes Mellitus. Glucose Poct Glucometerson 0 11-25-2021 Glucose [Mass/Vol] 125 mg/dL Normal [facility] Comment on above: Result Comment: [place] om Glucose Reference Range is dependent on time and content of last meal. Glucose of more than 200 mg/dL in a nonstressed, ambulatory subject supports the diagnosis of Diabetes Mellitus. PERFORMED BY: [address] [place] [address] PATHOLOGIST [employer] SUPERVISOR FLIP GERMAN M.D. Performed By: #### G LULS #### Point of Care testing , Laboratory - CoagulationOrde red By: Alcides Moya on 11-25-2021 PT Coag (PPP) [Time] 25.5 s 9.0-12.9 [facility] Platelet poor plasma interna tional normalized ratio (INR) by coagulation assay (relatOrdered By: Alcides Moya on 11-25-2021 INR Coag (PPP) [Relative time] 2.2 {INR} [facility] Comment on above: INR Therapeutic Rang e [...] Coag (PPP) [Relative time] 2.2 {INR} Normal [facility] Comment on above: Order Comment: List the [...] heart valves: 3 - 4.5 PERFORMED BY: [address] [address] [place] [address] PATHOLOGIST [employer] SUPERVISOR FLIP GERMAN M.D. Performed By: #### G LULS #### Point of Care testing , PT Coag (PPP) [Time] 25.5 s High 9.0-12.9 [facility] Comment on above: Order Comment: List the anticoagulant: COUMADIN/WARFARIN Performed By: #### G LULS #### Point of Care testing , Basic Metabolic Panelon 11-12 Anion gap [Moles/Vol] 11.8 mmol/L Normal 6.0-15.0 [place] Comment on above: Performed By: #### G LULS #### Point of Care testing , Calcium [Mass/Vol] 8.7 mg/dL Normal 8.2-10.2 [facility] Comment on above: Performed By: #### G LULS #### Point of Care testing , Chloride [Moles/Vol] 103 mmol/L Normal 95-114 [facility] Comment on above: Performed By: #### G LULS #### Point of Care testing , CO2 [Moles/Vol] 28.1 mmol/L Normal 22.0-30.0 [facility] Comment on above: Performed By: #### G LULS #### Point of Care testing , Creatinine [Mass/Vol] 0.53 mg/dL Normal 0.44-1.03 [facility] Comment on above: Performed By: #### G LULS #### Point of Care testing , Creatinine Clr Calc Pharmacy 64.37 [facility] Comment on above: Result Comment: PERF ORMED BY: [facility] [address] [place] [address] PATHOLOGIST [employer] SUPERVISOR FLIP GERMAN M.D. Performed By: #### G LULS #### Point of Care testing , Estimated GFR ( Trista > 60 [facility] Comment on above: Result Comment: GFR estimated reference range: According to KDOQI guidelines, <60 ml/min/1.73m2 is sufficient to diagnose a patient with chronic kidney disease. Performed By: #### G LULS #### Point of Care testing , Estimated GFR (Non- Am > 60 [facility] Comment on above: Performed By: #### G LULS #### Point of Care testing , Glucose [Mass/Vol] 138 mg/dL High 70-100 [facility] Comment on above: Result Comment: [place] Glucose Reference Range is dependent on time and content of last meal. Glucose of more than 200 mg/dL in a nonstressed, ambulatory subject supports the diagnosis of Diabetes Mellitus. ADA recommended reference range Performed By: #### G LULS #### Point of Care testing , Potassium [Moles/Vol] 3.9 mmol/L Normal 3.5-5.1 [facility] Comment on above: Performed By: #### G LULS #### Point of Care testing , Sodium [Moles/Vol] 139 mmol/L Normal 136-146 [facility] Comment on above: Performed By: #### G LULS #### Point of Care testing , Urea nitrogen [Mass/Vol] 6 mg/dL Low 9-23 [facility] Comment on above: Performed By: #### G LULS #### Point of Care testing , Basophils Auto (Bld) [#/Vol] Ordered By: Elham Mendoza on 11-24-2021 Basophils (Bld) [#/Vol] N/A [facility] Basophils/100 WBC Auto (Bld) Ordered By: Elham Mendoza on 11-24-2021 Basophils/100 WBC (Bld) N/A [facility] Blood anisocytosis detection Ordered By: Elham Mendoza on 11-24-2021 Anisocytosis Ql (Bld) Moderate [facility] Blood hemoglobin measurement (mass/volume)Ordered By: Elham Mendoza on 11-24-2021 Hemoglobin (Bld) [Mass/Vol] 11.4 g/dL 11.8-15.4 [facility] Blood leukocytes automated c ount (number/volume)Ordered By: Elham Mendoza on 11-24-2021 WBC (Bld) [#/Vol] 6.0 10*3/uL 4.5-11.0 [facility] Creatinine and Glomerular fi ltration rate.predicted panel (S/P/Bld)Ordered By: Elham Mendoza on 11-24-2021 Creatinine [Mass/Vol] 0.53 mg/dL 0.44-1.03 [facility] Diff and CBCon 11-24-2021 Anisocytosis Ql (Bld) Moderate Normal [facility] Comment on above: Performed By: #### G LULS #### Point of Care testing , Eosinophils/100 WBC (Bld) 2 % Normal 1-3 [facility] Comment on above: Performed By: #### G LULS #### Point of Care testing , Erythrocyte distribution width (RBC) [Ratio] 18.4 % High 11.9-15.3 [facility] Comment on above: Performed By: #### G LULS #### Point of Care testing , Hematocrit (Bld) [Volume fraction] 34.9 % Normal 34.0-46.4 [facility] Comment on above: Performed By: #### G LULS #### Point of Care testing , Hemoglobin (Bld) [Mass/Vol] 11.4 g/dL Low 11.8-15.4 [facility] Comment on above: Performed By: #### G LULS #### Point of Care testing , Lymphocytes/100 WBC (Bld) 35 % Normal 18-42 [facility] Comment on above: Performed By: #### G LULS #### Point of Care testing , MCH (RBC) [Entitic mass] 29.9 pg Normal 24.7-34.3 [facility] Comment on above: Performed By: #### G LULS #### Point of Care testing , MCV (RBC) [Entitic vol] 91.2 fL Normal 80-100 [facility] Comment on above: Performed By: #### G LULS #### Point of Care testing , Mean Corpuscular HGB Conc 32.8 g/dL Normal 32.0-35.0 [facility] Comment on above: Performed By: #### G GELACIOLS #### Point of Care testing , Monocytes/100 WBC (Bld) 7 % Normal 2-11 [facility] Comment on above: Performed By: #### G GELACIOLS #### Point of Care testing , Myelocytes 1 % High 0-0 [facility] Comment on above: Performed By: #### G GELACIOLS #### Point of Care testing , Nucleated RBC/100 WBC (Bld) [Ratio] 0.5 % Normal 0-0.5 [facility] Comment on above: Result Comment: PERF ORMED BY: [facility] [address] [place] [address] PATHOLOGIST [employer] SUPERVISOR FLIP GERMAN M.D. Performed By: #### G GELACIOLS #### Point of Care testing , Platelet Estimate Normal Normal Normal [facility] Comment on above: Performed By: #### G LULS #### Point of Care testing , Platelet mean volume (Bld) [Entitic vol] 8.8 fL Normal 6.3-10.7 [facility] Comment on above: Performed By: #### G LULS #### Point of Care testing , Platelet Morphology Normal Normal Normal [facility] Comment on above: Result Comment: PERF ORMED BY: [facility] [place] [address] PATHOLOGIST [employer] SUPERVISOR FLIP GERMAN M.D. Performed By: #### G LULS #### Point of Care testing , Platelets (Bld) [#/Vol] 285 10*3/uL Normal 150-450 [facility] Comment on above: Performed By: #### G LULS #### Point of Care testing , RBC (Bld) [#/Vol] 3.82 10*6/uL Normal 3.60-5.00 [facility] Comment on above: Performed By: #### G GELACIOLS #### Point of Care testing , Reactive Lymphocytes 1 % Normal 0-12 [facility] Comment on above: Performed By: #### G LULS #### Point of Care testing , Segmented neutrophils/100 WBC (Bld) 54 % Normal 50-70 [facility] Comment on above: Performed By: #### G LULS #### Point of Care testing , WBC (Bld) [#/Vol] 6.0 10*3/uL Normal 4.5-11.0 [facility] Comment on above: Performed By: #### G LULS #### Point of Care testing , Eosinophils Auto (Bld) [#/Vo l]Ordered By: Elham Mendoza on 11-24-2021 Eosinophils (Bld) [#/Vol] N/A [facility] Eosinophils/100 WBC Auto (Bl d)Ordered By: Elham Mendoza on 11-24-2021 Eosinophils/100 WBC (Bld) N/A [facility] Erythrocyte distribution wid th Auto (RBC) [Ratio]Ordered By: Elham Mendoza on 11-24-2021 Erythrocyte distribution width (RBC) [Ratio] 18.4 % 11.9-15.3 [facility] Estimated glomerular filtrat ion rate (GFR) non- AmericanOrdered By: Elham Mendoza on 11-24-2021 GFR/1.73 sq M.predicted among non-blacks MDRD (S/P/Bld) [Vol rate/Area] > 60 mL/Min [facility] Glucose Poct Glucometerson 0 11-24-2021 Glucose [Mass/Vol] 139 mg/dL Normal [facility] Comment on above: Result Comment: [facility] Glucose Reference Range is dependent on time and content of last meal. Glucose of more than 200 mg/dL in a nonstressed, ambulatory subject supports the diagnosis of Diabetes Mellitus. PERFORMED BY: [facility] [place] [address] PATHOLOGIST [employer] SUPERVISOR FLIP GERMAN M.D. Performed By: #### G LUCOLLIN #### Point of Care testing , Hematocrit Auto (Bld) [Volum e fraction]Ordered By: Elham Mendoza on 11-24-2021 Hematocrit (Bld) [Volume fraction] 34.9 % 34.0-46.4 [facility] Laboratory - Hematology and Cell countsOrdered By: Elham Mendoza on 11-24-2021 Nucleated RBC/100 WBC (Bld) [Ratio] 0.5 % 0-0.5 [facility] Lymphocytes Auto (Bld) [#/Vo l]Ordered By: Elham Mendoza on 11-24-2021 Lymphocytes (Bld) [#/Vol] N/A [facility] Lymphocytes/100 WBC Auto (Bl d)Ordered By: Elham Mendoza on 11-24-2021 Lymphocytes/100 WBC (Bld) N/A [facility] Lymphocytes/100 WBC (Bld) 35 % 18-42 [facility] Lymphocytes/100 WBC Manual c nt (Bld)Ordered By: Elham Mendoza on 11-24-2021 Lymphocytes/100 WBC (Bld) 1 % 0-12 [facility] MCH Auto (RBC) [Entitic mass ]Ordered By: Elham Mendoza on 11-24-2021 MCH (RBC) [Entitic mass] 29.9 pg 24.7-34.3 [facility] MCHC Auto (RBC) [Mass/Vol]Or dered By: Elham Mendoza on 11-24-2021 MCHC (RBC) [Mass/Vol] 32.8 g/dL 32.0-35.0 [facility] MCV Auto (RBC) [Entitic vol] Ordered By: Elham Mendoza on 11-24-2021 MCV (RBC) [Entitic vol] 91.2 fL 80-100 [facility] Monocyte %Ordered By: Elham Mendoza on 11-24-2021 Monocytes/100 WBC (Bld) 2 % 1-3 [facility] Monocytes Auto (Bld) [#/Vol] Ordered By: Elham Mendoza on 11-24-2021 Monocytes (Bld) [#/Vol] N/A [facility] Monocytes/100 WBC Auto (Bld) Ordered By: Elham Mendoza on 11-24-2021 Monocytes/100 WBC (Bld) N/A [facility] Monocytes/100 WBC Manual cnt (Bld)Ordered By: Elham Mendoza on 11-24-2021 Monocytes/100 WBC (Bld) 7 % 2-11 [facility] Myelocytes/100 WBC Manual cn t (Bld)Ordered By: Elham Mendoza on 11-24-2021 Myelocytes/100 WBC (Bld) 1 % 0-0 [facility] Neutrophils Auto (Bld) [#/Vo l]Ordered By: Elham Mendoza on 11-24-2021 Neutrophils (Bld) [#/Vol] N/A [facility] Neutrophils/100 WBC Auto (Bl d)Ordered By: Elham Mendoza on 11-24-2021 Neutrophils/100 WBC (Bld) N/A [facility] No Panel InformationOrdered By: Elham Mendoza on 11-24-2021 Estimated GFR () > 60 mL/Min [facility] Comment on above: GFR estimated refere nce range: According to KDOQI guidelines, <60 ml/min/1.73m2 is sufficient to diagnose a patient with chronic kidney disease. Pharmacy Creatinine Clearance (Chem 64.37 [facility] Platelet Estimate Normal Normal [facility] Platelet Morphology Comment Normal Normal [facility] Platelet mean volume Auto (B ld) [Entitic vol]Ordered By: Elham Mendoza on 11-24-2021 Platelet mean volume (Bld) [Entitic vol] 8.8 fL 6.3-10.7 [facility] Platelets Auto (Bld) [#/Vol] Ordered By: Elham Mendoza on 11-24-2021 Platelets (Bld) [#/Vol] 285 10*3/uL 150-450 [facility] Prothrombin Time INRon 11-24 INR Coag (PPP) [Relative time] 2.6 {INR} Normal [facility] Comment on above: Order Comment: FIRST SPECIMEN [...] heart valves: 3 - 4.5 PERFORMED BY: [facility] [address] [place] [address] PATHOLOGIST [employer] SUPERVISOR FLIP GERMAN M.D. Performed By: #### P T ####[id number] [place] [id number] [facility] PT Coag (PPP) [Time] 29.3 s High 9.0-12.9 [facility] Comment on above: Order Comment: FIRST SPECIMEN HEMOLYZED Performed By: #### P T ####[address] [id number] [facility] RBC Auto (Bld) [#/Vol]Ordere d By: Elham Mendoza on 11-24-2021 RBC (Bld) [#/Vol] 3.82 10*6/uL 3.60-5.00 [facility] RBC morphologyOrdered By: Pramod Mendoza on 11-24-2021 RBC morphology finding Nom (Bld) N/A [facility] Segmented neutrophils/100 WB C Manual cnt (Bld)Ordered By: Elham Mendoza on 11-24-2021 Segmented neutrophils/100 WBC (Bld) 54 % 50-70 [facility] Serum or plasma anion gap de terminationOrdered By: Elham Mendoza on 11-24-2021 Anion gap [Moles/Vol] 11.8 mmol/L 6.0-15.0 [facility] Serum or plasma calcium alondra urement (mass/volume)Ordered By: Elham Mendoza on 11-24-2021 Calcium [Mass/Vol] 8.7 mg/dL 8.2-10.2 [facility] Serum or plasma chloride link surement (moles/volume)Ordered By: Elham Mendoza on 11-24-2021 Chloride [Moles/Vol] 103 mmol/L 95-114 [facility] Serum or plasma glucose alondra urement (mass/volume)Ordered By: Elham Mendoza on 11-24-2021 Glucose [Mass/Vol] 138 mg/dL 70-100 [facility] Comment on above: ADA recommended refe [...] on 11-24-2021 Potassium [Moles/Vol] 3.9 mmol/L 3.5-5.1 [facility] Serum or plasma sodium measu rement (moles/volume)Ordered By: Elham Mendoza on 11-24-2021 Sodium [Moles/Vol] 139 mmol/L 136-146 [facility] Serum or plasma total carbon dioxide measurement (moles/volume)Ordered By: Elham Mendoza on 11-24-2021 CO2 [Moles/Vol] 28.1 mmol/L 22.0-30.0 [facility] Serum or plasma urea nitroge n measurement (mass/volume)Ordered By: Elham Mendoza on 11-24-2021 Urea nitrogen [Mass/Vol] 6 mg/dL 9-23 [facility] Glucose Poct Glucometerson 0 11-23-2021 Glucose [Mass/Vol] 157 mg/dL Normal [facility] Comment on above: Result Comment: [place] om Glucose Reference Range is dependent on time and content of last meal. Glucose of more than 200 mg/dL in a nonstressed, ambulatory subject supports the diagnosis of Diabetes Mellitus. PERFORMED BY: [address] [place] [address] PATHOLOGIST [employer] SUPERVISOR FLIP GERMAN M.D. Performed By: #### G LULS #### Point of Care testing , Prothrombin Time INRon 11-23 INR Coag (PPP) [Relative time] 2.9 {INR} Normal [facility] Comment on above: Order Comment: List the [...] heart valves: 3 - 4.5 PERFORMED BY: [address] [address] [place] [address] PATHOLOGIST [employer] SUPERVISOR FLIP GERMAN M.D. Performed By: #### G LULS #### Point of Care testing , PT Coag (PPP) [Time] 33.5 s High 9.0-12.9 [facility] Comment on above: Order Comment: List the anticoagulant: COUMADIN/WARFARIN Performed By: #### G LULS #### Point of Care testing , Glucose Poct Glucometerson 0 11-22-2021 Glucose [Mass/Vol] 161 mg/dL Normal [facility] Comment on above: Result Comment: [facility] Glucose Reference Range is dependent on time and content of last meal. Glucose of more than 200 mg/dL in a nonstressed, ambulatory subject supports the diagnosis of Diabetes Mellitus. PERFORMED BY: [address] [address] [place] [address] PATHOLOGIST [employer]ARD SUPERVISOR FLIP GERMAN M.D. Performed By: #### G LULS #### Point of Care testing , Glucose [Mass/Vol] 112 mg/dL Normal [facility] Comment on above: Result Comment: [facility] Glucose Reference Range is dependent on time and content of last meal. Glucose of more than 200 mg/dL in a nonstressed, ambulatory subject supports the diagnosis of Diabetes Mellitus. PERFORMED BY: [address] [place] [address] [id number] PATHOLOGIST [employer] SUPERVISOR FLIP GERMAN M.D. Performed By: #### G LULS #### Point of Care testing , Prothrombin Time INRon 11-22 INR Coag (PPP) [Relative time] 2.1 {INR} Normal [facility] Comment on above: Order Comment: List the [...] heart valves: 3 - 4.5 PERFORMED BY: [address] [place] [address] PATHOLOGIST [employer] SUPERVISOR FLIP GERMAN M.D. Performed By: #### G LULS #### Point of Care testing , PT Coag (PPP) [Time] 24.4 s High 9.0-12.9 [facility] Comment on above: Order Comment: List the anticoagulant: COUMADIN/WARFARIN Performed By: #### G LULS #### Point of Care testing , Glucose Poct Glucometerson 0 11-21-2021 Commemt1 Glu2: Cleaned Meter Normal [facility] Comment on above: Result Comment: PERF ORMED BY: [address] [place] [id number] PATHOLOGIST COAL [employer]ARD SUPERVISOR FLIP GERMAN M.D. Performed By: #### G LULS #### Point of Care testing , Glucose [Mass/Vol] 130 mg/dL Normal [facility] Comment on above: Result Comment: [facility] Glucose Reference Range is dependent on time and content of last meal. Glucose of more than 200 mg/dL in a nonstressed, ambulatory subject supports the diagnosis of Diabetes Mellitus. Performed By: #### G LULS #### Point of Care testing , No Panel InformationOrdered By: Alcides Moya on 11-21-2021 Bedside Glucose Comment Glu2: cleaned meter [facility] Prothrombin Time INRon 11-21 INR Coag (PPP) [Relative time] 1.9 {INR} Normal [facility] Comment on above: Order Comment: List the [...] heart valves: 3 - 4.5 PERFORMED BY: [address] [place] [address] PATHOLOGIST COAL YARD SUPERVISOR FLIP GERMAN M.D. Performed By: #### G LULS #### Point of Care testing , PT Coag (PPP) [Time] 21.8 s High 9.0-12.9 [facility] Comment on above: Order Comment: List the anticoagulant: COUMADIN/WARFARIN Performed By: #### G LULS #### Point of Care testing , Glucose Poct Glucometerson 0 11-20-2021 Commemt1 Glu2: Cleaned Meter [facility] Comment on above: Result Comment: PERF ORMED BY: [facility] [address] [place] [address] PATHOLOGIST CO[employer] YARD SUPERVISOR FLIP GERMAN M.D. Performed By: #### G LULS #### Point of Care testing , Glucose [Mass/Vol] 112 mg/dL [facility] Comment on above: Result Comment: [facility] Glucose Reference Range is dependent on time and content of last meal. Glucose of more than 200 mg/dL in a nonstressed, ambulatory subject supports the diagnosis of Diabetes Mellitus. Performed By: #### G LULS #### Point of Care testing , Glucose [Mass/Vol] 129 mg/dL Normal [facility] Comment on above: Result Comment: [place] Glucose Reference Range is dependent on time and content of last meal. Glucose of more than 200 mg/dL in a nonstressed, ambulatory subject supports the diagnosis of Diabetes Mellitus. PERFORMED BY: [address] [place] [id number] PATHOLOGIST COAL YARD SUPERVISOR FLIP GERMAN M.D. Performed By: #### G IAN #### Point of Care testing , Prothrombin Time INRon 11-20 INR Coag (PPP) [Relative time] 2.3 {INR} Normal [facility] Comment on above: Order Comment: List the [...] heart valves: 3 - 4.5 PERFORMED BY: [address] [place] [address] PATHOLOGIST CO[employer] YARD SUPERVISOR FLIP GERMAN M.D. Performed By: #### G IAN #### Point of Care testing , PT Coag (PPP) [Time] 26.6 s High 9.0-12.9 [facility] Comment on above: Order Comment: List the anticoagulant: COUMADIN/WARFARIN Performed By: #### G LUCOLLIN #### Point of Care testing , CT biopsyOrdered By: Amanda viveros on 11-19-2021 Transferrin [Mass/Vol] 173 mg/dL 180-380 [facility] Glucose Poct Glucometerson 0 11-19-2021 Glucose [Mass/Vol] 122 mg/dL Normal [facility] Comment on above: Result Comment: [place] Glucose Reference Range is dependent on time and content of last meal. Glucose of more than 200 mg/dL in a nonstressed, ambulatory subject supports the diagnosis of Diabetes Mellitus. PERFORMED BY: [address] [place] [address] PATHOLOGIST CO[employer]ARD SUPERVISOR FLIP GERMAN M.D. Performed By: #### G LULS #### Point of Care testing , Iron [Mass/volume] in Serum or PlasmaOrdered By: Amanda Jaimes on 11-19-2021 Iron [Mass/Vol] 56 ug/dL 40-150 [facility] Iron and TIBC Profileon 09 8-2021 % Iron Saturation 23.0 % Normal 20-50 [facility] Comment on above: Performed By: #### F E and TIBC ####[place] [id number] [place] [id number] [facility] Iron [Mass/Vol] 56 ug/dL Normal 40-150 [facility] Comment on above: Performed By: #### F E and TIBC ####[place] [id number] [facility] Total Iron Binding Capacity 242 ug/dL Low 255-450 [facility] Comment on above: Performed By: #### F E and TIBC ####[place] [id number] [facility] Transferrin [Mass/Vol] 173 mg/dL Low 180-380 [facility] Comment on above: Result Comment: PERF ORMED BY: [facility] [address] [place] [id number] PATHOLOGIST CO[employer] YARD SUPERVISOR FLIP GERMAN M.D. Performed By: #### F E and TIBC ####[place] [id number] [facility] Iron binding capacity [Mass/ volume] in Serum or PlasmaOrdered By: Amanda Jaimes on 11-19-2021 Iron binding capacity [Mass/Vol] 242 ug/dL 255-450 [facility] Iron saturation [Mass Fracti on] in Serum or PlasmaOrdered By: Amanda Jaimes on 11-19-2021 Iron saturation [Mass fraction] 23.0 % 20-50 [facility] Prothrombin Time INRon 11-19 INR Coag (PPP) [Relative time] 2.5 {INR} Normal [facility] Comment on above: Order Comment: List the [...] heart valves: 3 - 4.5 PERFORMED BY: [facility] [address] [place] [id number] PATHOLOGIST CO[employer] YARD SUPERVISOR FLIP GERMAN M.D. Performed By: #### P T ####[facility] [place] [id number] [facility] PT Coag (PPP) [Time] 28.4 s High 9.0-12.9 [facility] Comment on above: Order Comment: List the anticoagulant: COUMADIN/WARFARIN Performed By: #### P T ####[place] [id number] [place] [id number] [facility] Basic Metabolic Panelon 09-0 -2021 Anion gap [Moles/Vol] 12.3 mmol/L Normal 6.0-15.0 [place] Comment on above: Performed By: #### G LULS #### Point of Care testing , Calcium [Mass/Vol] 8.8 mg/dL Normal 8.2-10.2 [facility] Comment on above: Performed By: #### G LULS #### Point of Care testing , Chloride [Moles/Vol] 101 mmol/L Normal 95-114 [facility] Comment on above: Performed By: #### G LULS #### Point of Care testing , CO2 [Moles/Vol] 30.7 mmol/L High 22.0-30.0 [facility] Comment on above: Performed By: #### G LULS #### Point of Care testing , Creatinine [Mass/Vol] 0.53 mg/dL Normal 0.44-1.03 [facility] Comment on above: Performed By: #### G LULS #### Point of Care testing , Creatinine Clr Calc Pharmacy 64.26 [facility] Comment on above: Result Comment: PERF ORMED BY: [facility] [address] [place] [address] PATHOLOGIST [employer]ARD SUPERVISOR FLIP GERMAN M.D. Performed By: #### G LULS #### Point of Care testing , Estimated GFR ( Trista > 60 Normal [facility] Comment on above: Result Comment: GFR estimated reference range: According to KDOQI guidelines, <60 ml/min/1.73m2 is sufficient to diagnose a patient with chronic kidney disease. Performed By: #### G LULS #### Point of Care testing , Estimated GFR (Non- Am > 60 Normal [facility] Comment on above: Performed By: #### G LULS #### Point of Care testing , Glucose [Mass/Vol] 131 mg/dL High 70-100 [facility] Comment on above: Result Comment: [place] Glucose Reference Range is dependent on time and content of last meal. Glucose of more than 200 mg/dL in a nonstressed, ambulatory subject supports the diagnosis of Diabetes Mellitus. ADA recommended reference range Performed By: #### G LULS #### Point of Care testing , Potassium [Moles/Vol] 4.0 mmol/L Normal 3.5-5.1 [facility] Comment on above: Performed By: #### G LULS #### Point of Care testing , Sodium [Moles/Vol] 140 mmol/L Normal 136-146 [facility] Comment on above: Performed By: #### G LULS #### Point of Care testing , Urea nitrogen [Mass/Vol] 8 mg/dL Low 9-23 [facility] Comment on above: Performed By: #### G LULS #### Point of Care testing , Complete Blood Count Auto Di ffon 11-18-2021 Basophils (Bld) [#/Vol] 0.0 10*3/uL Normal 0.0-0.2 [facility] Comment on above: Result Comment: PERF ORMED BY: [facility] [address] [place] [address] PATHOLOGIST CO[employer]ARD SUPERVISOR FLIP GERMAN M.D. Performed By: #### G LULS #### Point of Care testing , Basophils/100 WBC (Bld) 0.5 % Normal . [facility] Comment on above: Performed By: #### Ezra BRIZUELALS #### Point of Care testing , Eosinophils (Bld) [#/Vol] 0.2 10*3/uL Normal 0.0-0.45 [facility] Comment on above: Performed By: #### Ezra SOSA #### Point of Care testing , Eosinophils/100 WBC (Bld) 4.0 % Normal . [facility] Comment on above: Performed By: #### Ezra SOSA #### Point of Care testing , Erythrocyte distribution width (RBC) [Ratio] 17.8 % High 11.9-15.3 [facility] Comment on above: Performed By: #### Ezra SOSA #### Point of Care testing , Hematocrit (Bld) [Volume fraction] 33.3 % Low 34.0-46.4 [facility] Comment on above: Performed By: #### Ezra SOSA #### Point of Care testing , Hemoglobin (Bld) [Mass/Vol] 10.9 g/dL Low 11.8-15.4 [facility] Comment on above: Performed By: #### Ezra SOSA #### Point of Care testing , Lymphocytes (Bld) [#/Vol] 2.2 10*3/uL Normal 1.00-4.8 [facility] Comment on above: Performed By: #### Ezra SOSA #### Point of Care testing , Lymphocytes/100 WBC (Bld) 40.3 % Normal . [facility] Comment on above: Performed By: #### Ezra SOSA #### Point of Care testing , MCH (RBC) [Entitic mass] 29.8 pg Normal 24.7-34.3 [facility] Comment on above: Performed By: #### Ezra SOSA #### Point of Care testing , MCV (RBC) [Entitic vol] 91.3 fL Normal 80-100 [facility] Comment on above: Performed By: #### Ezra SOSA #### Point of Care testing , Mean Corpuscular HGB Conc 32.6 g/dL Normal 32.0-35.0 [facility] Comment on above: Performed By: #### G IAN #### Point of Care testing , Monocytes (Bld) [#/Vol] 0.7 10*3/uL Normal 0.0-0.8 [facility] Comment on above: Performed By: #### G IAN #### Point of Care testing , Monocytes/100 WBC (Bld) 12.3 % Normal . [facility] Comment on above: Performed By: #### G GELACIOLS #### Point of Care testing , Neutrophils (Bld) [#/Vol] 2.3 10*3/uL Normal 1.8-7.7 [facility] Comment on above: Performed By: #### Ezra SOSA #### Point of Care testing , Neutrophils/100 WBC (Bld) 42.9 % Normal . [facility] Comment on above: Performed By: #### Ezra BRIZUELALS #### Point of Care testing , Nucleated RBC/100 WBC (Bld) [Ratio] 0.1 % Normal 0-0.5 [facility] Comment on above: Performed By: #### Ezra SOSA #### Point of Care testing , Platelet mean volume (Bld) [Entitic vol] 8.5 fL Normal 6.3-10.7 [facility] Comment on above: Performed By: #### G IAN #### Point of Care testing , Platelets (Bld) [#/Vol] 224 10*3/uL Normal 150-450 [facility] Comment on above: Performed By: #### Ezra SOSA #### Point of Care testing , RBC (Bld) [#/Vol] 3.65 10*6/uL Normal 3.60-5.00 [facility] Comment on above: Performed By: #### Ezra SOSA #### Point of Care testing , WBC (Bld) [#/Vol] 5.5 10*3/uL Normal 4.5-11.0 [facility] Comment on above: Performed By: #### Ezra SOSA #### Point of Care testing , Glucose Poct Glucometerson 0 11-18-2021 Glucose [Mass/Vol] 134 mg/dL Normal [facility] Comment on above: Result Comment: [facility] Glucose Reference Range is dependent on time and content of last meal. Glucose of more than 200 mg/dL in a nonstressed, ambulatory subject supports the diagnosis of Diabetes Mellitus. PERFORMED BY: [facility] [address] [place] [id number] PATHOLOGIST COAL YARD SUPERVISOR FLIP GERMAN M.D. Performed By: #### G LULS #### Point of Care testing , Prothrombin Time INRon 11-18 INR Coag (PPP) [Relative time] 2.5 {INR} Normal [facility] Comment on above: Order Comment: List the [...] heart valves: 3 - 4.5 PERFORMED BY: [address] [place] [id number] PATHOLOGIST COAL YARD SUPERVISOR FLIP GERMAN M.D. Performed By: #### G LULS #### Point of Care testing , PT Coag (PPP) [Time] 28.3 s High 9.0-12.9 [facility] Comment on above: Order Comment: List the anticoagulant: COUMADIN/WARFARIN Performed By: #### G LULS #### Point of Care testing , Glucose Poct Glucometerson 0 11-17-2021 Glucose [Mass/Vol] 124 mg/dL Normal [facility] Comment on above: Result Comment: [facility] Glucose Reference Range is dependent on time and content of last meal. Glucose of more than 200 mg/dL in a nonstressed, ambulatory subject supports the diagnosis of Diabetes Mellitus. PERFORMED BY: [facility] [address] [place] [address] PATHOLOGIST COAL YARD SUPERVISOR FLIP GERMAN M.D. Performed By: #### G LULS #### Point of Care testing , Prothrombin Time INRon 11-17 INR Coag (PPP) [Relative time] 2.7 {INR} Normal [facility] Comment on above: Order Comment: List the [...] heart valves: 3 - 4.5 PERFORMED BY: [facility] [address] [place] [id number] PATHOLOGIST COAL YARD SUPERVISOR FLIP GERMAN M.D. Performed By: #### P T ####[place] [id number] [facility] PT Coag (PPP) [Time] 30.8 s High 9.0-12.9 [facility] Comment on above: Order Comment: List the anticoagulant: COUMADIN/WARFARIN Performed By: #### P T ####[address] [address] [facility] Glucose Poct Glucometerson 0 11-16-2021 Commemt1 Glu2: Cleaned Meter [facility] Comment on above: Result Comment: PERF ORMED BY: [facility] [address] [place] [address] PATHOLOGIST CO[employer] YARD SUPERVISOR FLIP GERMAN M.D. Performed By: #### G LULS #### Point of Care testing , Glucose [Mass/Vol] 125 mg/dL Normal [facility] Comment on above: Result Comment: [facility] Glucose Reference Range is dependent on time and content of last meal. Glucose of more than 200 mg/dL in a nonstressed, ambulatory subject supports the diagnosis of Diabetes Mellitus. Performed By: #### G LULS #### Point of Care testing , Prothrombin Time INRon 11-16 INR Coag (PPP) [Relative time] 2.9 {INR} Normal [facility] Comment on above: Order Comment: List the [...] heart valves: 3 - 4.5 PERFORMED BY: [address] [place] [address] PATHOLOGIST COAL YARD SUPERVISOR FLIP GERMAN M.D. Performed By: #### G LULS #### Point of Care testing , PT Coag (PPP) [Time] 32.9 s High 9.0-12.9 [facility] Comment on above: Order Comment: List the anticoagulant: COUMADIN/WARFARIN Performed By: #### G LULS #### Point of Care testing , Glucose Poct Glucometerson 0 11-15-2021 Glucose [Mass/Vol] 145 mg/dL Normal [facility] Comment on above: Result Comment: [place] om Glucose Reference Range is dependent on time and content of last meal. Glucose of more than 200 mg/dL in a nonstressed, ambulatory subject supports the diagnosis of Diabetes Mellitus. PERFORMED BY: [address] [place] [address] PATHOLOGIST CO[employer] YARD SUPERVISOR FLIP GERMAN M.D. Performed By: #### G LULS #### Point of Care testing , Commemt1 Glu2: Cleaned Meter Normal [facility] Comment on above: Result Comment: PERF ORMED BY: [address] [place] [address] PATHOLOGIST COAL YARD SUPERVISOR FLPI GERMAN M.D. Performed By: #### G LULS #### Point of Care testing , Glucose [Mass/Vol] 131 mg/dL Normal [facility] Comment on above: Result Comment: [place] om Glucose Reference Range is dependent on time and content of last meal. Glucose of more than 200 mg/dL in a nonstressed, ambulatory subject supports the diagnosis of Diabetes Mellitus. Performed By: #### G LULS #### Point of Care testing , Commemt1 Glu2: Cleaned Meter [facility] Comment on above: Result Comment: PERF ORMED BY: [address] [place] [address] PATHOLOGIST CO[employer] YARD SUPERVISOR FLIP GERMAN M.D. Performed By: #### G LULS #### Point of Care testing , Glucose [Mass/Vol] 201 mg/dL Normal [facility] Comment on above: Result Comment: [place] om Glucose Reference Range is dependent on time and content of last meal. Glucose of more than 200 mg/dL in a nonstressed, ambulatory subject supports the diagnosis of Diabetes Mellitus. Performed By: #### G LULS #### Point of Care testing , Commemt1 Glu2: Cleaned Meter [facility] Comment on above: Result Comment: PERF ORMED BY: [address] [place] [address] PATHOLOGIST CO[employer] YARD SUPERVISOR FLIP GERMAN M.D. Performed By: #### G LULS #### Point of Care testing , Glucose [Mass/Vol] 184 mg/dL Normal [facility] Comment on above: Result Comment: [place] om Glucose Reference Range is dependent on time and content of last meal. Glucose of more than 200 mg/dL in a nonstressed, ambulatory subject supports the diagnosis of Diabetes Mellitus. Performed By: #### G LULS #### Point of Care testing , Prothrombin Time INRon 11-15 INR Coag (PPP) [Relative time] 2.4 {INR} [facility] Comment on above: Order Comment: List [...] heart valves: 3 - 4.5 PERFORMED BY: [address] [place] [id number] PATHOLOGIST CO[employer] YARD SUPERVISOR FLIP GERMAN M.D. Performed By: #### G LULS #### Point of Care testing , PT Coag (PPP) [Time] 27.8 s High 9.0-12.9 [facility] Comment on above: Order Comment: List the anticoagulant: COUMADIN/WARFARIN Performed By: #### G LULS #### Point of Care testing , Glucose Poct Glucometerson 0 11-14-2021 Commemt1 Glu2: Cleaned Meter Normal [facility] Comment on above: Result Comment: PERF ORMED BY: [facility] [address] [place] [address] PATHOLOGIST CO[employer] YARD SUPERVISOR FLIP GERMAN M.D. Performed By: #### G LULS #### Point of Care testing , Glucose [Mass/Vol] 152 mg/dL Normal [facility] Comment on above: Result Comment: [place] om Glucose Reference Range is dependent on time and content of last meal. Glucose of more than 200 mg/dL in a nonstressed, ambulatory subject supports the diagnosis of Diabetes Mellitus. Performed By: #### G LULS #### Point of Care testing , Glucose [Mass/Vol] 179 mg/dL Normal [facility] Comment on above: Result Comment: [place] om Glucose Reference Range is dependent on time and content of last meal. Glucose of more than 200 mg/dL in a nonstressed, ambulatory subject supports the diagnosis of Diabetes Mellitus. PERFORMED BY: [address] [place] [id number] PATHOLOGIST CO[employer] YARD SUPERVISOR FLIP GERMAN M.D. Performed By: #### G LULS #### Point of Care testing , Glucose [Mass/Vol] 211 mg/dL Normal [facility] Comment on above: Result Comment: [place] om Glucose Reference Range is dependent on time and content of last meal. Glucose of more than 200 mg/dL in a nonstressed, ambulatory subject supports the diagnosis of Diabetes Mellitus. PERFORMED BY: [address] [place] [address] PATHOLOGIST COAL YARD SUPERVISOR FLIP GERMAN M.D. Performed By: #### G LULS #### Point of Care testing , Glucose [Mass/Vol] 184 mg/dL Normal [facility] Comment on above: Result Comment: [place] Glucose Reference Range is dependent on time and content of last meal. Glucose of more than 200 mg/dL in a nonstressed, ambulatory subject supports the diagnosis of Diabetes Mellitus. PERFORMED BY: [facility] [address] [place] [address] PATHOLOGIST COAL YARD SUPERVISOR FLIP GERMAN M.D. Performed By: #### G LULS #### Point of Care testing , Prothrombin Time INRon 11-14 INR Coag (PPP) [Relative time] 2.2 {INR} Normal [facility] Comment on above: Order Comment: List the [...] heart valves: 3 - 4.5 PERFORMED BY: [facility] [address] [place] [address] PATHOLOGIST COAL YARD SUPERVISOR FLIP GERMAN M.D. Performed By: #### G LULS #### Point of Care testing , PT Coag (PPP) [Time] 25.7 s High 9.0-12.9 [facility] Comment on above: Order Comment: List the anticoagulant: COUMADIN/WARFARIN Performed By: #### G LULS #### Point of Care testing , Glucose Glucometer (BldC) [M ass/Vol]Ordered By: Alcides Moya on 11-13-2021 Glucose [Mass/Vol] 146 mg/dL [facility] Comment on above: Random Glucose Refer ence Range is dependent on time and content of last meal. Glucose of more than 200 mg/dL in a nonstressed, ambulatory subject supports the diagnosis of Diabetes Mellitus. Glucose Poct Glucometerson 0 11-13-2021 Glucose [Mass/Vol] 146 mg/dL Normal [facility] Comment on above: Result Comment: [place] om Glucose Reference Range is dependent on time and content of last meal. Glucose of more than 200 mg/dL in a nonstressed, ambulatory subject supports the diagnosis of Diabetes Mellitus. PERFORMED BY: [address] [place] [address] PATHOLOGIST COAL YARD SUPERVISOR FLIP GERMAN M.D. Performed By: #### G LULS ####Point of Care testing, Commemt1 Glu2: Cleaned Meter [facility] Comment on above: Result Comment: PERF ORMED BY: [address] [place] [address] PATHOLOGIST CO[employer] YARD SUPERVISOR FLIP GERMAN M.D. Performed By: #### G LULS ####Point of Care testing, Glucose [Mass/Vol] 128 mg/dL Normal [facility] Comment on above: Result Comment: [place] om Glucose Reference Range is dependent on time and content of last meal. Glucose of more than 200 mg/dL in a nonstressed, ambulatory subject supports the diagnosis of Diabetes Mellitus. Performed By: #### G LULS ####Point of Care testing, Commemt1 Glu2: Cleaned Meter [facility] Comment on above: Result Comment: PERF ORMED BY: [address] [place] [address] PATHOLOGIST COAL YARD SUPERVISOR FLIP GERMAN M.D. Performed By: #### G LULS #### Point of Care testing , Glucose [Mass/Vol] 145 mg/dL Normal [facility] Comment on above: Result Comment: [place] om Glucose Reference Range is dependent on time and content of last meal. Glucose of more than 200 mg/dL in a nonstressed, ambulatory subject supports the diagnosis of Diabetes Mellitus. Performed By: #### G LULS #### Point of Care testing , Commemt1 Glu2: Cleaned Meter [facility] Comment on above: Result Comment: PERF ORMED BY: [address] [place] [address] PATHOLOGIST CO[employer] YARD SUPERVISOR FLIP GERMAN M.D. Performed By: #### G LULS #### Point of Care testing , Glucose [Mass/Vol] 122 mg/dL Normal [facility] Comment on above: Result Comment: [place] om Glucose Reference Range is dependent on time and content of last meal. Glucose of more than 200 mg/dL in a nonstressed, ambulatory subject supports the diagnosis of Diabetes Mellitus. Performed By: #### G LULS #### Point of Care testing , Glucose [Mass/Vol] 116 mg/dL Normal [facility] Comment on above: Result Comment: [place] om Glucose Reference Range is dependent on time and content of last meal. Glucose of more than 200 mg/dL in a nonstressed, ambulatory subject supports the diagnosis of Diabetes Mellitus. PERFORMED BY: [facility] [address] [place] [address] PATHOLOGIST COAL YARD SUPERVISOR FLIP GERMAN M.D. Performed By: #### G LULS ####Point of Care testing, No Panel InformationOrdered By: Alcides Moya on 11-13-2021 Bedside Glucose Comment Glu2: cleaned meter [facility] Platelet poor plasma interna tional normalized ratio (INR) by coagulation assay (relatOrdered By: Alcides Moya on 11-13-2021 INR Coag (PPP) [Relative time] 2.6 {INR} Normal [facility] Comment on above: INR Therapeutic Rang e [...] heart valves: 3 - 4.5 PERFORMED BY: [facility] [address] [place] [id number] PATHOLOGIST COAL YARD SUPERVISOR FLIP GERMAN M.D. Performed By: #### P T ####[place] [id number] [place] [address] [facility] Prothrombin Time INROrdered By: Alcides Moya on 11-13-2021 PT Coag (PPP) [Time] 29.5 s High 9.0-12.9 [facility] Comment on above: Order Comment: List the anticoagulant: COUMADIN/WARFARIN Performed By: #### P T ####[id number] [place] [address] [facility] Albumin [Mass/volume] in Ser um or PlasmaOrdered By: Alcides Moya on 11-12-2021 Albumin [Mass/Vol] 3.1 g/dL 3.2-5.5 [facility] Basophils Auto (Bld) [#/Vol] Ordered By: Alcides Moya on 11-12-2021 Basophils (Bld) [#/Vol] 0.0 10*3/uL 0.0-0.2 [facility] Basophils/100 WBC Auto (Bld) Ordered By: Alcides Moya on 11-12-2021 Basophils/100 WBC (Bld) 0.5 % . [facility] Blood hemoglobin measurement (mass/volume)Ordered By: Alcides Moya on 11-12-2021 Hemoglobin (Bld) [Mass/Vol] 12.5 g/dL 11.8-15.4 [facility] Blood leukocytes automated c ount (number/volume)Ordered By: Alcides Moya on 11-12-2021 WBC (Bld) [#/Vol] 5.0 10*3/uL 4.5-11.0 [facility] Complete Blood Count Auto Di ffon 11-12-2021 Basophils (Bld) [#/Vol] 0.0 10*3/uL Normal 0.0-0.2 [facility] Comment on above: Result Comment: PERF ORMED BY: [facility] [address] [place] [address] PATHOLOGIST [employer]PER[employer] FLIP GERMAN M.D. Performed By: #### G GELACIOLS #### Point of Care testing , Basophils/100 WBC (Bld) 0.5 % Normal . [facility] Comment on above: Performed By: #### G GELACIOLS #### Point of Care testing , Eosinophils (Bld) [#/Vol] 0.2 10*3/uL Normal 0.0-0.45 [facility] Comment on above: Performed By: #### G LULS #### Point of Care testing , Eosinophils/100 WBC (Bld) 3.8 % Normal . [facility] Comment on above: Performed By: #### G GELACIOLS #### Point of Care testing , Erythrocyte distribution width (RBC) [Ratio] 17.3 % High 11.9-15.3 [facility] Comment on above: Performed By: #### G LULS #### Point of Care testing , Hematocrit (Bld) [Volume fraction] 38.9 % Normal 34.0-46.4 [facility] Comment on above: Performed By: #### G LULS #### Point of Care testing , Hemoglobin (Bld) [Mass/Vol] 12.5 g/dL Normal 11.8-15.4 [facility] Comment on above: Performed By: #### G LULS #### Point of Care testing , Lymphocytes (Bld) [#/Vol] 2.0 10*3/uL Normal 1.00-4.8 [facility] Comment on above: Performed By: #### G LULS #### Point of Care testing , Lymphocytes/100 WBC (Bld) 39.7 % Normal . [facility] Comment on above: Performed By: #### G LULS #### Point of Care testing , MCH (RBC) [Entitic mass] 29.2 pg Normal 24.7-34.3 [facility] Comment on above: Performed By: #### G LULS #### Point of Care testing , MCV (RBC) [Entitic vol] 90.6 fL Normal 80-100 [facility] Comment on above: Performed By: #### G LULS #### Point of Care testing , Mean Corpuscular HGB Conc 32.2 g/dL Normal 32.0-35.0 [facility] Comment on above: Performed By: #### Ezra SOSA #### Point of Care testing , Monocytes (Bld) [#/Vol] 0.5 10*3/uL Normal 0.0-0.8 [facility] Comment on above: Performed By: #### Ezra SOSA #### Point of Care testing , Monocytes/100 WBC (Bld) 10.1 % Normal . [facility] Comment on above: Performed By: #### Ezra SOSA #### Point of Care testing , Neutrophils (Bld) [#/Vol] 2.3 10*3/uL Normal 1.8-7.7 [facility] Comment on above: Performed By: #### Ezra SOSA #### Point of Care testing , Neutrophils/100 WBC (Bld) 45.9 % Normal . [facility] Comment on above: Performed By: #### Ezra SOSA #### Point of Care testing , Nucleated RBC/100 WBC (Bld) [Ratio] 0.0 % Normal 0-0.5 [facility] Comment on above: Performed By: ###Tabby SOSA #### Point of Care testing , Platelet mean volume (Bld) [Entitic vol] 8.6 fL Normal 6.3-10.7 [facility] Comment on above: Performed By: #### Ezra SOSA #### Point of Care testing , Platelets (Bld) [#/Vol] 241 10*3/uL Normal 150-450 [facility] Comment on above: Performed By: #### Ezra SOSA #### Point of Care testing , RBC (Bld) [#/Vol] 4.29 10*6/uL Normal 3.60-5.00 [facility] Comment on above: Performed By: #### Ezra SOSA #### Point of Care testing , WBC (Bld) [#/Vol] 5.0 10*3/uL Normal 4.5-11.0 [facility] Comment on above: Performed By: #### Ezra SOSA #### Point of Care testing , Comprehensive Metabolic Pane loco 11-12-2021 Albumin [Mass/Vol] 3.1 g/dL Low 3.2-5.5 [facility] Comment on above: Performed By: #### Ezra SOSA #### Point of Care testing , Albumin/Globulin [Mass ratio] 0.8 {ratio} Normal [facility] Comment on above: Performed By: #### Ezra BRIZUELALS #### Point of Care testing , ALP [Catalytic activity/Vol] 84 U/L Normal 32-92 [facility] Comment on above: Performed By: #### Ezra SOSA #### Point of Care testing , ALT [Catalytic activity/Vol] 13 U/L Normal 10-60 [facility] Comment on above: Performed By: #### Ezra SOSA #### Point of Care testing , Anion gap [Moles/Vol] 11.9 mmol/L Normal 6.0-15.0 [place] Comment on above: Performed By: #### Ezra SOSA #### Point of Care testing , AST [Catalytic activity/Vol] 22 U/L Normal 10-42 [facility] Comment on above: Performed By: #### Ezra SOSA #### Point of Care testing , Bilirubin [Mass/Vol] 0.8 mg/dL Normal 0.3-1.2 [facility] Comment on above: Performed By: #### Ezra SOSA #### Point of Care testing , Calcium [Mass/Vol] 9.2 mg/dL Normal 8.2-10.2 [facility] Comment on above: Performed By: #### Ezra SOSA #### Point of Care testing , Chloride [Moles/Vol] 100 mmol/L Normal 95-114 [facility] Comment on above: Performed By: #### Ezra SOSA #### Point of Care testing , CO2 [Moles/Vol] 31.0 mmol/L High 22.0-30.0 [facility] Comment on above: Performed By: #### Ezra SOSA #### Point of Care testing , Creatinine [Mass/Vol] 0.55 mg/dL Normal 0.44-1.03 [facility] Comment on above: Performed By: #### G LULS #### Point of Care testing , Creatinine Clr Calc Pharmacy 64.44 [facility] Comment on above: Performed By: #### G LULS #### Point of Care testing , Estimated GFR ( Trista > 60 [facility] Comment on above: Result Comment: GFR estimated reference range: According to KDOQI guidelines, <60 ml/min/1.73m2 is sufficient to diagnose a patient with chronic kidney disease. Performed By: #### G LULS #### Point of Care testing , Estimated GFR (Non- Am > 60 [facility] Comment on above: Performed By: #### G LULS #### Point of Care testing , Globulin (S) [Mass/Vol] 3.7 g/dL [facility] Comment on above: Performed By: #### G LULS #### Point of Care testing , Glucose [Mass/Vol] 130 mg/dL High 70-100 [facility] Comment on above: Result Comment: [facility] Glucose Reference Range is dependent on time and content of last meal. Glucose of more than 200 mg/dL in a nonstressed, ambulatory subject supports the diagnosis of Diabetes Mellitus. ADA recommended reference range Performed By: #### G LULS #### Point of Care testing , Potassium [Moles/Vol] 3.9 mmol/L Normal 3.5-5.1 [facility] Comment on above: Performed By: #### G LULS #### Point of Care testing , Protein [Mass/Vol] 6.8 g/dL Normal 6.1-7.9 [facility] Comment on above: Performed By: #### G LULS #### Point of Care testing , Sodium [Moles/Vol] 139 mmol/L Normal 136-146 [facility] Comment on above: Performed By: #### G LULS #### Point of Care testing , Urea nitrogen [Mass/Vol] 8 mg/dL Low 9-23 [facility] Comment on above: Performed By: #### G LULS #### Point of Care testing , Creatinine and Glomerular fi ltration rate.predicted panel (S/P/Bld)Ordered By: Alcides Moya on 11-12-2021 Creatinine [Mass/Vol] 0.55 mg/dL 0.44-1.03 [facility] Eosinophils Auto (Bld) [#/Vo l]Ordered By: Alcides Moya on 11-12-2021 Eosinophils (Bld) [#/Vol] 0.2 10*3/uL 0.0-0.45 [facility] Eosinophils/100 WBC Auto (Bl d)Ordered By: Alcides Moya on 11-12-2021 Eosinophils/100 WBC (Bld) 3.8 % . [facility] Erythrocyte distribution wid th Auto (RBC) [Ratio]Ordered By: Alcides Moya on 11-12-2021 Erythrocyte distribution width (RBC) [Ratio] 17.3 % 11.9-15.3 [facility] Estimated glomerular filtrat ion rate (GFR) non- AmericanOrdered By: Alcides Moya on 11-12-2021 GFR/1.73 sq M.predicted among non-blacks MDRD (S/P/Bld) [Vol rate/Area] > 60 mL/Min [facility] Globulin Calc (S) [Mass/Vol] Ordered By: Alcides Moya on 11-12-2021 Globulin (S) [Mass/Vol] 3.7 g/dL [facility] Glucose Glucometer (BldC) [M ass/Vol]Ordered By: Alcides Moya on 11-12-2021 Glucose [Mass/Vol] 212 mg/dL [facility] Comment on above: Random Glucose Refer ence Range is dependent on time and content of last meal. Glucose of more than 200 mg/dL in a nonstressed, ambulatory subject supports the diagnosis of Diabetes Mellitus. Glucose Poct Glucometerson 0 11-12-2021 Glucose [Mass/Vol] 212 mg/dL Normal [facility] Comment on above: Result Comment: [place] Glucose Reference Range is dependent on time and content of last meal. Glucose of more than 200 mg/dL in a nonstressed, ambulatory subject supports the diagnosis of Diabetes Mellitus. PERFORMED BY: [facility] [place] [address] PATHOLOGIST [employer]PER[employer] FLIP GERMAN M.D. Performed By: #### G LULS #### Point of Care testing , Glucose [Mass/Vol] 293 mg/dL Normal [facility] Comment on above: Result Comment: [place] [facility] Glucose Reference Range is dependent on time and content of last meal. Glucose of more than 200 mg/dL in a nonstressed, ambulatory subject supports the diagnosis of Diabetes Mellitus. PERFORMED BY: [address] [place] [address] PATHOLOGIST [employer] SUPERVISOR FLIP GERMAN M.D. Performed By: #### G LULS #### Point of Care testing , Commemt1 Glu2: Cleaned Meter [facility] Comment on above: Result Comment: PERF ORMED BY: [address] [place] [address] PATHOLOGIST [employer] SUPER[employer]OR FLIP GERMAN M.D. Performed By: #### G LULS #### Point of Care testing , Glucose [Mass/Vol] 204 mg/dL Normal [facility] Comment on above: Result Comment: [place] Glucose Reference Range is dependent on time and content of last meal. Glucose of more than 200 mg/dL in a nonstressed, ambulatory subject supports the diagnosis of Diabetes Mellitus. Performed By: #### G LULS #### Point of Care testing , Commemt1 Glu2: Cleaned Meter [facility] Comment on above: Result Comment: PERF ORMED BY: [address] [place] [id number] PATHOLOGIST [employer] SUPERVIS[employer] FLIP GERMAN M.D. Performed By: #### G LULS #### Point of Care testing , Glucose [Mass/Vol] 188 mg/dL Normal [facility] Comment on above: Result Comment: [place] [facility] Glucose Reference Range is dependent on time and content of last meal. Glucose of more than 200 mg/dL in a nonstressed, ambulatory subject supports the diagnosis of Diabetes Mellitus. Performed By: #### G LULS #### Point of Care testing , Hematocrit Auto (Bld) [Volum e fraction]Ordered By: Alcides Moya on 11-12-2021 Hematocrit (Bld) [Volume fraction] 38.9 % 34.0-46.4 [facility] Laboratory - CoagulationOrde red By: Alcides Moya on 11-12-2021 PT Coag (PPP) [Time] 34.1 s 9.0-12.9 [facility] Laboratory - Hematology and Cell countsOrdered By: Alcides Moya on 11-12-2021 Nucleated RBC/100 WBC (Bld) [Ratio] 0.0 % 0-0.5 [facility] Lymphocytes Auto (Bld) [#/Vo l]Ordered By: Alcides Moya on 11-12-2021 Lymphocytes (Bld) [#/Vol] 2.0 10*3/uL 1.00-4.8 [facility] Lymphocytes/100 WBC Auto (Bl d)Ordered By: Alcides Moya on 11-12-2021 Lymphocytes/100 WBC (Bld) 39.7 % . [facility] MCH Auto (RBC) [Entitic mass ]Ordered By: Alcidse Moya on 11-12-2021 MCH (RBC) [Entitic mass] 29.2 pg 24.7-34.3 [facility] MCHC Auto (RBC) [Mass/Vol]Or dered By: Alcides Moya on 11-12-2021 MCHC (RBC) [Mass/Vol] 32.2 g/dL 32.0-35.0 [facility] MCV Auto (RBC) [Entitic vol] Ordered By: Alcides Moya on 11-12-2021 MCV (RBC) [Entitic vol] 90.6 fL 80-100 [facility] Monocytes Auto (Bld) [#/Vol] Ordered By: Alcides Moya on 11-12-2021 Monocytes (Bld) [#/Vol] 0.5 10*3/uL 0.0-0.8 [facility] Monocytes/100 WBC Auto (Bld) Ordered By: Alcides Moya on 11-12-2021 Monocytes/100 WBC (Bld) 10.1 % . [facility] Neutrophils Auto (Bld) [#/Vo l]Ordered By: Alcides Moya on 11-12-2021 Neutrophils (Bld) [#/Vol] 2.3 10*3/uL 1.8-7.7 [facility] Neutrophils/100 WBC Auto (Bl d)Ordered By: Alcides Moya on 11-12-2021 Neutrophils/100 WBC (Bld) 45.9 % . [facility] No Panel InformationOrdered By: Alcides Moya on 11-12-2021 Bedside Glucose Comment Glu2: cleaned meter [facility] Estimated GFR () > 60 mL/Min [facility] Comment on above: GFR estimated refere nce range: According to KDOQI guidelines, <60 ml/min/1.73m2 is sufficient to diagnose a patient with chronic kidney disease. Pharmacy Creatinine Clearance (Chem 64.44 [facility] Platelet mean volume Auto (B ld) [Entitic vol]Ordered By: Alcides Moya on 11-12-2021 Platelet mean volume (Bld) [Entitic vol] 8.6 fL 6.3-10.7 [facility] Platelet poor plasma interna tional normalized ratio (INR) by coagulation assay (relatOrdered By: Alcides Moya on 11-12-2021 INR Coag (PPP) [Relative time] 3.0 {INR} [facility] Comment on above: INR Therapeutic Rang e [...] 11-12-2021 Platelets (Bld) [#/Vol] 241 10*3/uL 150-450 [facility] Prealbuminon 11-12-2021 Prealbumin [Mass/Vol] 21.7 mg/dL Normal 18.0-38.0 [facility] Comment on above: Result Comment: PERF ORMED BY: [facility] [address] [place] [address] PATHOLOGIST [employer] SUPERVISOR FLIP GERMAN M.D. Performed By: #### G LUCOLLIN #### Point of Care testing , Protein [Mass/volume] in Ser um or PlasmaOrdered By: Alcides Moya on 11-12-2021 Protein [Mass/Vol] 6.8 g/dL 6.1-7.9 [facility] Prothrombin Time INRon 11-12 INR Coag (PPP) [Relative time] 3.0 {INR} Normal [facility] Comment on above: Order Comment: List the [...] heart valves: 3 - 4.5 PERFORMED BY: [facility] [address] [address] PATHOLOGIST [employer] SUPERVISOR FLIP GERMAN M.D. Performed By: #### G IAN #### Point of Care testing , PT Coag (PPP) [Time] 34.1 s High 9.0-12.9 [facility] Comment on above: Order Comment: List the anticoagulant: COUMADIN/WARFARIN Performed By: #### G IAN #### Point of Care testing , RBC Auto (Bld) [#/Vol]Ordere d By: Alcides Moya on 11-12-2021 RBC (Bld) [#/Vol] 4.29 10*6/uL 3.60-5.00 [facility] Serum or plasma alanine engel otransferase measurement without P-5'-P (enzymatic activiOrdered By: Alcides Moya on 11-12-2021 ALT No additional P-5'-P [Catalytic activity/Vol] 13 U/L 10-60 [facility] Serum or plasma albumin/glob ulin mass ratioOrdered By: Alcides Moya on 11-12-2021 Albumin/Globulin [Mass ratio] 0.8 {ratio} [facility] Serum or plasma alkaline bouchra sphatase measurement (enzymatic activity/volume)Ordered By: Alcides Moya on 11-12-2021 ALP [Catalytic activity/Vol] 84 U/L 32-92 [facility] Serum or plasma anion gap de terminationOrdered By: Alcides Moya on 11-12-2021 Anion gap [Moles/Vol] 11.9 mmol/L 6.0-15.0 [place] Serum or plasma aspartate am inotransferase measurement (enzymatic activity/volume)Ordered By: Alcides Moya on 11-12-2021 AST [Catalytic activity/Vol] 22 U/L 10-42 [facility] Serum or plasma calcium alondra urement (mass/volume)Ordered By: Alcides Moya on 11-12-2021 Calcium [Mass/Vol] 9.2 mg/dL 8.2-10.2 [facility] Serum or plasma chloride link surement (moles/volume)Ordered By: Alcides Moya on 11-12-2021 Chloride [Moles/Vol] 100 mmol/L 95-114 [facility] Serum or plasma glucose alondra urement (mass/volume)Ordered By: Alcides Moya on 11-12-2021 Glucose [Mass/Vol] 130 mg/dL 70-100 [facility] Comment on above: ADA recommended refe rence range Random Glucose Reference Range is dependent on time and content of last meal. Glucose of more than 200 mg/dL in a nonstressed, ambulatory subject supports the diagnosis of Diabetes Mellitus. Serum or plasma potassium me asurement (moles/volume)Ordered By: Alcides Moya on 11-12-2021 Potassium [Moles/Vol] 3.9 mmol/L 3.5-5.1 [facility] Serum or plasma prealbumin m easurement (mass/volume)Ordered By: Alcides Moya on 11-12-2021 Prealbumin [Mass/Vol] 21.7 mg/dL 18.0-38.0 [facility] Serum or plasma sodium measu rement (moles/volume)Ordered By: Alcides Moya on 11-12-2021 Sodium [Moles/Vol] 139 mmol/L 136-146 [facility] Serum or plasma total biliru bin measurement (mass/volume)Ordered By: Alcides Moya on 11-12-2021 Bilirubin [Mass/Vol] 0.8 mg/dL 0.3-1.2 [facility] Serum or plasma total carbon dioxide measurement (moles/volume)Ordered By: Alcides Moya on 11-12-2021 CO2 [Moles/Vol] 31.0 mmol/L 22.0-30.0 [facility] Serum or plasma urea nitroge n measurement (mass/volume)Ordered By: Alcides Moya on 11-12-2021 Urea nitrogen [Mass/Vol] 8 mg/dL 9- [facility] Glucose Glucometer (BldC) [M ass/Vol]Ordered By: Gaye Claire on 11-11-2021 Glucose [Mass/Vol] 127 mg/dL [facility] Comment on above: Random Glucose Refer ence Range is dependent on time and content of last meal. Glucose of more than 200 mg/dL in a nonstressed, ambulatory subject supports the diagnosis of Diabetes Mellitus. Glucose Poct Glucometerson 0 11-11-2021 Glucose [Mass/Vol] 168 mg/dL Normal [facility] Comment on above: Result Comment: [place] Glucose Reference Range is dependent on time and content of last meal. Glucose of more than 200 mg/dL in a nonstressed, ambulatory subject supports the diagnosis of Diabetes Mellitus. PERFORMED BY: [facility] [address] [place] [address] PATHOLOGIST [employer] SUPERVISOR FLIP GERMAN M.D. Performed By: #### G LULS #### Point of Care testing , Commemt1 Glu2: Cleaned Meter [facility] Comment on above: Result Comment: PERF ORMED BY: [facility] [address] [place] [address] PATHOLOGIST [employer] SUPERVISOR FLIP GERMAN M.D. Performed By: #### G LULS #### Point of Care testing , Glucose [Mass/Vol] 127 mg/dL Normal [facility] Comment on above: Result Comment: [place] om Glucose Reference Range is dependent on time and content of last meal. Glucose of more than 200 mg/dL in a nonstressed, ambulatory subject supports the diagnosis of Diabetes Mellitus. Performed By: #### G LULS #### Point of Care testing , Commemt1 Glu2: Cleaned Meter [facility] Comment on above: Result Comment: PERF ORMED BY: [facility] [address] [place] [id number] PATHOLOGIST [employer] SUPERVISOR FLIP GERMAN M.D. Performed By: #### G LULS ####Point of Care testing, Glucose [Mass/Vol] 228 mg/dL Normal [facility] Comment on above: Result Comment: [place] om Glucose Reference Range is dependent on time and content of last meal. Glucose of more than 200 mg/dL in a nonstressed, ambulatory subject supports the diagnosis of Diabetes Mellitus. Performed By: #### G LULS ####Point of Care testing, Commemt1 Glu2: Cleaned Meter [facility] Comment on above: Result Comment: PERF ORMED BY: [facility] [address] [place] [address] PATHOLOGIST [employer] SUPERVISOR FLIP GERMAN M.D. Performed By: #### G LULS #### Point of Care testing , Glucose [Mass/Vol] 150 mg/dL Normal [facility] Comment on above: Result Comment: [place] Glucose Reference Range is dependent on time and content of last meal. Glucose of more than 200 mg/dL in a nonstressed, ambulatory subject supports the diagnosis of Diabetes Mellitus. Performed By: #### G LULS #### Point of Care testing , Laboratory - CoagulationOrde red By: Enrrique Mota on 11-11-2021 PT Coag (PPP) [Time] 31.5 s 9.0-12.9 [facility] No Panel InformationOrdered By: Gaye Claire on 11-11-2021 Bedside Glucose Comment Glu2: cleaned meter [facility] Platelet poor plasma interna tional normalized ratio (INR) by coagulation assay (relatOrdered By: Enrrique Mota on 11-11-2021 INR Coag (PPP) [Relative time] 2.7 {INR} [facility] Comment on above: INR Therapeutic Rang e [...] Coag (PPP) [Relative time] 2.7 {INR} Normal [facility] Comment on above: Result Comment: INR Therapeutic [...] heart valves: 3 - 4.5 PERFORMED BY: [address] [address] PATHOLOGIST [employer] SUPERVISOR FLIP GERMAN M.D. Performed By: #### G LUCOLLIN #### Point of Care testing , PT Coag (PPP) [Time] 31.5 s High 9.0-12.9 [facility] Comment on above: Performed By: #### G LULS #### Point of Care testing , Glucose Poct Glucometerson 0 11-10-2021 Glucose [Mass/Vol] 124 mg/dL Normal [facility] Comment on above: Result Comment: [place] Glucose Reference Range is dependent on time and content of last meal. Glucose of more than 200 mg/dL in a nonstressed, ambulatory subject supports the diagnosis of Diabetes Mellitus. PERFORMED BY: [facility] [address] [place] [address] PATHOLOGIST [employer] SUPERVISOR FLIP GERMAN M.D. Performed By: #### G LULS #### Point of Care testing , Commemt1 Glu2: Cleaned Meter Normal [facility] Comment on above: Result Comment: PERF ORMED BY: [address] [place] [address] PATHOLOGIST [employer] SUPERVISOR FLIP GERMAN M.D. Performed By: #### G LULS #### Point of Care testing , Glucose [Mass/Vol] 143 mg/dL Normal [facility] Comment on above: Result Comment: [place] om Glucose Reference Range is dependent on time and content of last meal. Glucose of more than 200 mg/dL in a nonstressed, ambulatory subject supports the diagnosis of Diabetes Mellitus. Performed By: #### G LULS #### Point of Care testing , Commemt1 Glu2: Cleaned Meter [facility] Comment on above: Result Comment: PERF ORMED BY: [address] [place] [address] PATHOLOGIST [employer] SUPERVISOR FLIP GERMAN M.D. Performed By: #### G LULS #### Point of Care testing , Glucose [Mass/Vol] 190 mg/dL Normal [facility] Comment on above: Result Comment: [place] om Glucose Reference Range is dependent on time and content of last meal. Glucose of more than 200 mg/dL in a nonstressed, ambulatory subject supports the diagnosis of Diabetes Mellitus. Performed By: #### G LULS #### Point of Care testing , Commemt1 Glu2: Cleaned Meter [facility] Comment on above: Result Comment: PERF ORMED BY: [address] [place] [address] PATHOLOGIST [employer] SUPERVISOR FLIP GERMAN M.D. Performed By: #### G LULS #### Point of Care testing , Glucose [Mass/Vol] 136 mg/dL Normal [facility] Comment on above: Result Comment: [place] om Glucose Reference Range is dependent on time and content of last meal. Glucose of more than 200 mg/dL in a nonstressed, ambulatory subject supports the diagnosis of Diabetes Mellitus. Performed By: #### G LULS #### Point of Care testing , Prothrombin Time INRon 11-10 INR Coag (PPP) [Relative time] 2.5 {INR} Normal [facility] Comment on above: Result Comment: INR Therapeutic [...] heart valves: 3 - 4.5 PERFORMED BY: [address] [place] [address] PATHOLOGIST [employer] SUPERVISOR FLIP GERMAN M.D. Performed By: #### G LULS #### Point of Care testing , PT Coag (PPP) [Time] 28.4 s High 9.0-12.9 [facility] Comment on above: Performed By: #### G LULS #### Point of Care testing , Glucose Poct Glucometerson 0 11-09-2021 Commemt1 Glu2: Cleaned Meter [facility] Comment on above: Result Comment: PERF ORMED BY: [address] [place] [address] PATHOLOGIST [employer] SUPERVISOR FLIP GERMAN M.D. Performed By: #### G LULS #### Point of Care testing , Glucose [Mass/Vol] 165 mg/dL Normal [facility] Comment on above: Result Comment: [facility] Glucose Reference Range is dependent on time and content of last meal. Glucose of more than 200 mg/dL in a nonstressed, ambulatory subject supports the diagnosis of Diabetes Mellitus. Performed By: #### G LULS #### Point of Care testing , Commemt1 Glu2: Cleaned Meter [facility] Comment on above: Result Comment: PERF ORMED BY: [address] [place] [address] PATHOLOGIST [employer]ARD SUPERVISOR FLIP GERMAN M.D. Performed By: #### G LULS #### Point of Care testing , Glucose [Mass/Vol] 156 mg/dL Normal [facility] Comment on above: Result Comment: [place] Glucose Reference Range is dependent on time and content of last meal. Glucose of more than 200 mg/dL in a nonstressed, ambulatory subject supports the diagnosis of Diabetes Mellitus. Performed By: #### G LULS #### Point of Care testing , Glucose [Mass/Vol] 257 mg/dL Normal [facility] Comment on above: Result Comment: [place] om Glucose Reference Range is dependent on time and content of last meal. Glucose of more than 200 mg/dL in a nonstressed, ambulatory subject supports the diagnosis of Diabetes Mellitus. PERFORMED BY: [address] [place] [address] PATHOLOGIST [employer] YARD SUPERVISOR FLIP GERMAN M.D. Performed By: #### G LULS #### Point of Care testing , Glucose [Mass/Vol] 142 mg/dL Normal [facility] Comment on above: Result Comment: [place] Glucose Reference Range is dependent on time and content of last meal. Glucose of more than 200 mg/dL in a nonstressed, ambulatory subject supports the diagnosis of Diabetes Mellitus. PERFORMED BY: [address] [place] [address] PATHOLOGIST [employer]ARD SUPERVISOR FLIP GERMAN M.D. Performed By: #### G LULS #### Point of Care testing , Prothrombin Time INRon 11-09 INR Coag (PPP) [Relative time] 2.7 {INR} Normal [facility] Comment on above: Result Comment: INR Therapeutic [...] heart valves: 3 - 4.5 PERFORMED BY: [facility] [address] [place] [address] PATHOLOGIST [employer]ARD SUPERVISOR FLIP GERMAN M.D. Performed By: #### G LULS #### Point of Care testing , PT Coag (PPP) [Time] 30.5 s High 9.0-12.9 [facility] Comment on above: Performed By: #### G LULS #### Point of Care testing , Glucose Poct Glucometerson 0 11-08-2021 Glucose [Mass/Vol] 180 mg/dL Normal [facility] Comment on above: Result Comment: [place] Glucose Reference Range is dependent on time and content of last meal. Glucose of more than 200 mg/dL in a nonstressed, ambulatory subject supports the diagnosis of Diabetes Mellitus. PERFORMED BY: [address] [place] [address] PATHOLOGIST CO[employer] YARD SUPERVISOR FLIP GERMAN M.D. Performed By: #### G LULS #### Point of Care testing , Glucose [Mass/Vol] 161 mg/dL Normal [facility] Comment on above: Result Comment: [facility] Glucose Reference Range is dependent on time and content of last meal. Glucose of more than 200 mg/dL in a nonstressed, ambulatory subject supports the diagnosis of Diabetes Mellitus. PERFORMED BY: [address] [place] [address] PATHOLOGIST CO[employer] YARD SUPERVISOR FLIP GERMAN M.D. Performed By: #### G LULS #### Point of Care testing , Glucose [Mass/Vol] 193 mg/dL Normal [facility] Comment on above: Result Comment: [facility] Glucose Reference Range is dependent on time and content of last meal. Glucose of more than 200 mg/dL in a nonstressed, ambulatory subject supports the diagnosis of Diabetes Mellitus. PERFORMED BY: [address] [place] [address] PATHOLOGIST COAL YARD SUPERVISOR FLIP GERMAN M.D. Performed By: #### G LULS #### Point of Care testing , Commemt1 Glu2: Cleaned Meter Normal [facility] Comment on above: Result Comment: PERF ORMED BY: [facility] [address] [place] [id number] PATHOLOGIST [employer]ARD SUPERVISOR FLIP GERMAN M.D. Performed By: #### G LULS #### Point of Care testing , Glucose [Mass/Vol] 155 mg/dL Normal [facility] Comment on above: Result Comment: [place] Glucose Reference Range is dependent on time and content of last meal. Glucose of more than 200 mg/dL in a nonstressed, ambulatory subject supports the diagnosis of Diabetes Mellitus. Performed By: #### G LULS #### Point of Care testing , Prothrombin Time INRon 11-08 INR Coag (PPP) [Relative time] 2.9 {INR} Normal [facility] Comment on above: Result Comment: INR Therapeutic [...] heart valves: 3 - 4.5 PERFORMED BY: [address] [place] [address] PATHOLOGIST CO[employer] YARD SUPERVISOR FLIP GERMAN M.D. Performed By: #### G LULS #### Point of Care testing , PT Coag (PPP) [Time] 33.0 s High 9.0-12.9 [facility] Comment on above: Performed By: #### G LULS #### Point of Care testing , Glucose Poct Glucometerson 0 11-07-2021 Commemt1 Glu2: Cleaned Meter [facility] Comment on above: Result Comment: PERF ORMED BY: [facility] [address] [place] [address] PATHOLOGIST CO[employer] YARD SUPERVISOR FLIP GERMAN M.D. Performed By: #### G LULS #### Point of Care testing , Glucose [Mass/Vol] 183 mg/dL Normal [facility] Comment on above: Result Comment: [place] Glucose Reference Range is dependent on time and content of last meal. Glucose of more than 200 mg/dL in a nonstressed, ambulatory subject supports the diagnosis of Diabetes Mellitus. Performed By: #### G LULS #### Point of Care testing , Commemt1 Glu2: Cleaned Meter [facility] Comment on above: Result Comment: PERF ORMED BY: [facility] [address] [facility] [place] [id number] PATHOLOGIST CO[employer] YARD SUPERVISOR FLIP GERMAN M.D. Performed By: #### G LULS #### Point of Care testing , Glucose [Mass/Vol] 154 mg/dL Normal [facility] Comment on above: Result Comment: [place] Glucose Reference Range is dependent on time and content of last meal. Glucose of more than 200 mg/dL in a nonstressed, ambulatory subject supports the diagnosis of Diabetes Mellitus. Performed By: #### G LULS #### Point of Care testing , Commemt1 Glu2: Cleaned Meter Normal [facility] Comment on above: Result Comment: PERF ORMED BY: [facility] [address] [place] [address] PATHOLOGIST CO[employer] YARD SUPERVISOR FLIP GERMAN M.D. Performed By: #### G LULS #### Point of Care testing , Glucose [Mass/Vol] 339 mg/dL Normal [facility] Comment on above: Result Comment: [place] Glucose Reference Range is dependent on time and content of last meal. Glucose of more than 200 mg/dL in a nonstressed, ambulatory subject supports the diagnosis of Diabetes Mellitus. Performed By: #### G LULS #### Point of Care testing , Glucose [Mass/Vol] 146 mg/dL Normal [facility] Comment on above: Result Comment: [place] Glucose Reference Range is dependent on time and content of last meal. Glucose of more than 200 mg/dL in a nonstressed, ambulatory subject supports the diagnosis of Diabetes Mellitus. PERFORMED BY: [address] [place] [address] PATHOLOGIST CO[employer] YARD SUPERVISOR FLIP GERMAN M.D. Performed By: #### G LULS #### Point of Care testing , Prothrombin Time INRon 11-07 INR Coag (PPP) [Relative time] 2.0 {INR} Normal [facility] Comment on above: Result Comment: INR Therapeutic [...] heart valves: 3 - 4.5 PERFORMED BY: [facility] [address] [place] [address] PATHOLOGIST CO[employer]ARD SUPERVISOR FLIP GERMAN M.D. Performed By: #### G LULS #### Point of Care testing , PT Coag (PPP) [Time] 22.8 s High 9.0-12.9 [facility] Comment on above: Performed By: #### G LULS #### Point of Care testing , Basic Metabolic Panelon 10-13 Calcium [Mass/Vol] 9.1 mg/dL Normal 8.2-10.2 [facility] Comment on above: Performed By: #### G LULS #### Point of Care testing , Chloride [Moles/Vol] 98 mmol/L Normal 95-114 [facility] Comment on above: Performed By: #### G LULS #### Point of Care testing , CO2 [Moles/Vol] 33.3 mmol/L High 22.0-30.0 [facility] Comment on above: Performed By: #### G LULS #### Point of Care testing , Creatinine [Mass/Vol] 0.63 mg/dL Normal 0.44-1.03 [facility] Comment on above: Performed By: #### G LULS #### Point of Care testing , Creatinine Clr Calc Pharmacy 65.08 [facility] Comment on above: Result Comment: PERF ORMED BY: [facility] [address] [place] [address] PATHOLOGIST CO[employer] YARD SUPERVISOR FLIP GERMAN M.D. Performed By: #### G LULS #### Point of Care testing , Estimated GFR ( Trista > 60 [facility] Comment on above: Result Comment: GFR estimated reference range: According to KDOQI guidelines, <60 ml/min/1.73m2 is sufficient to diagnose a patient with chronic kidney disease. Performed By: #### G LULS #### Point of Care testing , Estimated GFR (Non- Am > 60 Normal [facility] Comment on above: Performed By: #### G LULS #### Point of Care testing , Glucose [Mass/Vol] 159 mg/dL High 70-100 [facility] Comment on above: Result Comment: [place] Glucose Reference Range is dependent on time and content of last meal. Glucose of more than 200 mg/dL in a nonstressed, ambulatory subject supports the diagnosis of Diabetes Mellitus. ADA recommended reference range Performed By: #### G LULS #### Point of Care testing , Potassium [Moles/Vol] 3.3 mmol/L Low 3.5-5.1 [facility] Comment on above: Performed By: #### G LULS #### Point of Care testing , Sodium [Moles/Vol] 140 mmol/L Normal 136-146 [facility] Comment on above: Performed By: #### G LULS #### Point of Care testing , Urea nitrogen [Mass/Vol] 6 mg/dL Low 9-23 [facility] Comment on above: Performed By: #### G GELACIOLS #### Point of Care testing , Basophils Auto (Bld) [#/Vol] Ordered By: Faustina Barr on 11-06-2021 Basophils (Bld) [#/Vol] 0.0 10*3/uL 0.0-0.2 [facility] Basophils/100 WBC Auto (Bld) Ordered By: Faustina Barr on 11-06-2021 Basophils/100 WBC (Bld) 0.5 % . [facility] Blood hemoglobin measurement (mass/volume)Ordered By: Faustina Barr on 11-06-2021 Hemoglobin (Bld) [Mass/Vol] 11.8 g/dL 11.8-15.4 [facility] Blood leukocytes automated c ount (number/volume)Ordered By: Faustina Barr on 11-06-2021 WBC (Bld) [#/Vol] 5.6 10*3/uL 4.5-11.0 [facility] Complete Blood Count Auto Di ffon 11-06-2021 Basophils (Bld) [#/Vol] 0.0 10*3/uL Normal 0.0-0.2 [facility] Comment on above: Result Comment: PERF ORMED BY: [facility] [address] PATHOLOGIST CO[employer]ARD SUPERVISOR FLIP GERMAN M.D. Performed By: #### G LULS #### Point of Care testing , Basophils/100 WBC (Bld) 0.5 % Normal . [facility] Comment on above: Performed By: #### G LULS #### Point of Care testing , Eosinophils (Bld) [#/Vol] 0.2 10*3/uL Normal 0.0-0.45 [facility] Comment on above: Performed By: #### G LULS #### Point of Care testing , Eosinophils/100 WBC (Bld) 3.9 % Normal . [facility] Comment on above: Performed By: #### G LULS #### Point of Care testing , Erythrocyte distribution width (RBC) [Ratio] 16.6 % High 11.9-15.3 [facility] Comment on above: Performed By: #### G LULS #### Point of Care testing , Hematocrit (Bld) [Volume fraction] 37.0 % Normal 34.0-46.4 [facility] Comment on above: Performed By: #### G LULS #### Point of Care testing , Hemoglobin (Bld) [Mass/Vol] 11.8 g/dL Normal 11.8-15.4 [facility] Comment on above: Performed By: #### G LULS #### Point of Care testing , Lymphocytes (Bld) [#/Vol] 2.1 10*3/uL Normal 1.00-4.8 [facility] Comment on above: Performed By: #### G LULS #### Point of Care testing , Lymphocytes/100 WBC (Bld) 37.6 % Normal . [facility] Comment on above: Performed By: #### G LULS #### Point of Care testing , MCH (RBC) [Entitic mass] 28.8 pg Normal 24.7-34.3 [facility] Comment on above: Performed By: #### Ezra SOSA #### Point of Care testing , MCV (RBC) [Entitic vol] 90.5 fL Normal 80-100 [facility] Comment on above: Performed By: #### Ezra SOSA #### Point of Care testing , Mean Corpuscular HGB Conc 31.9 g/dL Low 32.0-35.0 [facility] Comment on above: Performed By: #### Ezra BRIZUELALS #### Point of Care testing , Monocytes (Bld) [#/Vol] 0.7 10*3/uL Normal 0.0-0.8 [facility] Comment on above: Performed By: #### Ezra SOSA #### Point of Care testing , Monocytes/100 WBC (Bld) 12.7 % Normal . [facility] Comment on above: Performed By: #### Ezra SOSA #### Point of Care testing , Neutrophils (Bld) [#/Vol] 2.5 10*3/uL Normal 1.8-7.7 [facility] Comment on above: Performed By: #### Ezra SOSA #### Point of Care testing , Neutrophils/100 WBC (Bld) 45.3 % Normal . [facility] Comment on above: Performed By: #### Ezra SOSA #### Point of Care testing , Nucleated RBC/100 WBC (Bld) [Ratio] 0.1 % Normal 0-0.5 [facility] Comment on above: Performed By: #### Ezra SOSA #### Point of Care testing , Platelet mean volume (Bld) [Entitic vol] 8.3 fL Normal 6.3-10.7 [facility] Comment on above: Performed By: #### Ezra SOSA #### Point of Care testing , Platelets (Bld) [#/Vol] 298 10*3/uL Normal 150-450 [facility] Comment on above: Performed By: #### Ezra SOSA #### Point of Care testing , RBC (Bld) [#/Vol] 4.09 10*6/uL Normal 3.60-5.00 [facility] Comment on above: Performed By: #### G LULS #### Point of Care testing , WBC (Bld) [#/Vol] 5.6 10*3/uL Normal 4.5-11.0 [facility] Comment on above: Performed By: #### G LULS #### Point of Care testing , Creatinine and Glomerular fi ltration rate.predicted panel (S/P/Bld)Ordered By: Faustina Barr on 11-06-2021 Creatinine [Mass/Vol] 0.63 mg/dL 0.44-1.03 [facility] Eosinophils Auto (Bld) [#/Vo l]Ordered By: Faustina Barr on 11-06-2021 Eosinophils (Bld) [#/Vol] 0.2 10*3/uL 0.0-0.45 [facility] Eosinophils/100 WBC Auto (Bl d)Ordered By: Faustina Barr on 11-06-2021 Eosinophils/100 WBC (Bld) 3.9 % . [facility] Erythrocyte distribution wid th Auto (RBC) [Ratio]Ordered By: Faustina Barr on 11-06-2021 Erythrocyte distribution width (RBC) [Ratio] 16.6 % 11.9-15.3 [facility] Estimated glomerular filtrat ion rate (GFR) non- AmericanOrdered By: Faustina Barr on 11-06-2021 GFR/1.73 sq M.predicted among non-blacks MDRD (S/P/Bld) [Vol rate/Area] > 60 mL/Min [facility] Glucose Poct Glucometerson 0 11-06-2021 Commemt1 Glu2: Cleaned Meter Normal [facility] Comment on above: Result Comment: PERF ORMED BY: [facility] [address] [place] [address] PATHOLOGIST CO[employer] YARD SUPERVISOR FLIP GERMAN M.D. Performed By: #### G LULS #### Point of Care testing , Glucose [Mass/Vol] 175 mg/dL Normal [facility] Comment on above: Result Comment: [place] Glucose Reference Range is dependent on time and content of last meal. Glucose of more than 200 mg/dL in a nonstressed, ambulatory subject supports the diagnosis of Diabetes Mellitus. Performed By: #### G LULS #### Point of Care testing , Commemt1 Glu2: Cleaned Meter Normal [facility] Comment on above: Result Comment: PERF ORMED BY: [address] [place] [address] PATHOLOGIST CO[employer]ARD SUPERVISOR FLIP GERMAN M.D. Performed By: #### G LULS #### Point of Care testing , Glucose [Mass/Vol] 141 mg/dL Normal [facility] Comment on above: Result Comment: [place] om Glucose Reference Range is dependent on time and content of last meal. Glucose of more than 200 mg/dL in a nonstressed, ambulatory subject supports the diagnosis of Diabetes Mellitus. Performed By: #### G LULS #### Point of Care testing , Glucose [Mass/Vol] 171 mg/dL Normal [facility] Comment on above: Result Comment: [place] om Glucose Reference Range is dependent on time and content of last meal. Glucose of more than 200 mg/dL in a nonstressed, ambulatory subject supports the diagnosis of Diabetes Mellitus. PERFORMED BY: [facility] [address] [place] [address] PATHOLOGIST CO[employer] YARD SUPERVISOR FLIP GERMAN M.D. Performed By: #### G LULS #### Point of Care testing , Glucose [Mass/Vol] 139 mg/dL Normal [facility] Comment on above: Result Comment: [place] Glucose Reference Range is dependent on time and content of last meal. Glucose of more than 200 mg/dL in a nonstressed, ambulatory subject supports the diagnosis of Diabetes Mellitus. PERFORMED BY: [address] [place] [address] PATHOLOGIST CO[employer]ARD SUPERVISOR FLIP GERMAN M.D. Performed By: #### G LULS #### Point of Care testing , Hematocrit Auto (Bld) [Volum e fraction]Ordered By: Faustina Barr on 11-06-2021 Hematocrit (Bld) [Volume fraction] 37.0 % 34.0-46.4 [facility] Laboratory - Hematology and Cell countsOrdered By: Faustina Barr on 11-06-2021 Nucleated RBC/100 WBC (Bld) [Ratio] 0.1 % 0-0.5 [facility] Lymphocytes Auto (Bld) [#/Vo l]Ordered By: Faustina Barr on 11-06-2021 Lymphocytes (Bld) [#/Vol] 2.1 10*3/uL 1.00-4.8 [facility] Lymphocytes/100 WBC Auto (Bl d)Ordered By: Faustina Barr on 11-06-2021 Lymphocytes/100 WBC (Bld) 37.6 % . [facility] MCH Auto (RBC) [Entitic mass ]Ordered By: Faustina Barr on 11-06-2021 MCH (RBC) [Entitic mass] 28.8 pg 24.7-34.3 [facility] MCHC Auto (RBC) [Mass/Vol]Or dered By: Faustina Barr on 11-06-2021 MCHC (RBC) [Mass/Vol] 31.9 g/dL 32.0-35.0 [facility] MCV Auto (RBC) [Entitic vol] Ordered By: Faustina Barr on 11-06-2021 MCV (RBC) [Entitic vol] 90.5 fL 80-100 [facility] Monocytes Auto (Bld) [#/Vol] Ordered By: Faustina Barr on 11-06-2021 Monocytes (Bld) [#/Vol] 0.7 10*3/uL 0.0-0.8 [facility] Monocytes/100 WBC Auto (Bld) Ordered By: Faustina Barr on 11-06-2021 Monocytes/100 WBC (Bld) 12.7 % . [facility] Neutrophils Auto (Bld) [#/Vo l]Ordered By: Faustina Barr on 11-06-2021 Neutrophils (Bld) [#/Vol] 2.5 10*3/uL 1.8-7.7 [facility] Neutrophils/100 WBC Auto (Bl d)Ordered By: Faustina Barr on 11-06-2021 Neutrophils/100 WBC (Bld) 45.3 % . [facility] No Panel InformationOrdered By: Faustina Barr on 11-06-2021 Estimated GFR () > 60 mL/Min [facility] Comment on above: GFR estimated refere nce range: According to KDOQI guidelines, <60 ml/min/1.73m2 is sufficient to diagnose a patient with chronic kidney disease. Pharmacy Creatinine Clearance (Chem 65.08 [facility] Platelet mean volume Auto (B ld) [Entitic vol]Ordered By: Faustina Barr on 11-06-2021 Platelet mean volume (Bld) [Entitic vol] 8.3 fL 6.3-10.7 [facility] Platelets Auto (Bld) [#/Vol] Ordered By: Faustina Barr on 11-06-2021 Platelets (Bld) [#/Vol] 298 10*3/uL 150-450 [facility] Prothrombin Time INRon 11-06 INR Coag (PPP) [Relative time] 1.3 {INR} Normal [facility] Comment on above: Result Comment: INR Therapeutic [...] heart valves: 3 - 4.5 PERFORMED BY: [place] [address] [place] [address] PATHOLOGIST CO[employer]ARD SUPERVISOR FLIP GERMAN M.D. Performed By: #### G IAN #### Point of Care testing , PT Coag (PPP) [Time] 14.4 s High 9.0-12.9 [facility] Comment on above: Performed By: #### G IAN #### Point of Care testing , RBC Auto (Bld) [#/Vol]Ordere d By: Faustina Barr on 11-06-2021 RBC (Bld) [#/Vol] 4.09 10*6/uL 3.60-5.00 [facility] Serum or plasma calcium alondra urement (mass/volume)Ordered By: Faustina Barr on 11-06-2021 Calcium [Mass/Vol] 9.1 mg/dL 8.2-10.2 [facility] Serum or plasma chloride link surement (moles/volume)Ordered By: Faustina Barr on 11-06-2021 Chloride [Moles/Vol] 98 mmol/L 95-114 [facility] Serum or plasma glucose alondra urement (mass/volume)Ordered By: Faustina Barr on 11-06-2021 Glucose [Mass/Vol] 159 mg/dL 70-100 [facility] Comment on above: ADA recommended refe [...] on 11-06-2021 Potassium [Moles/Vol] 3.3 mmol/L 3.5-5.1 [facility] Serum or plasma sodium measu rement (moles/volume)Ordered By: Faustina Barr on 11-06-2021 Sodium [Moles/Vol] 140 mmol/L 136-146 [facility] Serum or plasma total carbon dioxide measurement (moles/volume)Ordered By: Faustina Barr on 11-06-2021 CO2 [Moles/Vol] 33.3 mmol/L 22.0-30.0 [facility] Serum or plasma urea nitroge n measurement (mass/volume)Ordered By: Faustina Barr on 11-06-2021 Urea nitrogen [Mass/Vol] 6 mg/dL 9-23 [facility] Urine culture routineOrdered By: Marvin Peter on 11-06-2021 Bacteria identified Cx Nom (U) Escherichia coli [facility] Glucose Poct Glucometerson 0 11-05-2021 Commemt1 Glu2: Cleaned Meter Normal [facility] Comment on above: Result Comment: PERF ORMED BY: [place] [id number] PATHOLOGIST CO[employer] YARD SUPERVISOR FLIP GERMAN M.D. Performed By: #### G LULS #### Point of Care testing , Glucose [Mass/Vol] 202 mg/dL Normal [facility] Comment on above: Result Comment: [place] Glucose Reference Range is dependent on time and content of last meal. Glucose of more than 200 mg/dL in a nonstressed, ambulatory subject supports the diagnosis of Diabetes Mellitus. Performed By: #### G LULS #### Point of Care testing , MR lumbar spine wo conon MR lumbar spine wo con [facility] [place] [address] [place] [address] MRI Report Signed Patient: Alton Barker MR#: [id number] : 1940 Acct:[id number] Age/Sex: 81 / F ADM Date: 11/04/21 Loc: Room: [address] [place] [address] Type: ADM INOo Attending Dr: Enrrique Mota [...] Vijay Holden M.D.11/05/2021 12:14 PM Dictation Location: [place] [address] Transcribed By: [facility] 11/05/21 1214 Dictated By: Vijay Holden II, MD 11/05/21 1209 Signed By: 11/05/21 1214 [facility] Prothrombin Time INRon 11-05 INR Coag (PPP) [Relative time] 1.8 {INR} [facility] Comment on above: Result Comment: INR [...] heart valves: 3 - 4.5 PERFORMED BY: [facility] [place] [address] PATHOLOGIST CO[employer] YARD SUPERVISOR FLIP GERMAN M.D. Performed By: #### G IAN #### Point of Care testing , PT Coag (PPP) [Time] 20.0 s High 9.0-12.9 [facility] Comment on above: Performed By: #### G IAN #### Point of Care testing , Albumin [Mass/volume] in Ser um or PlasmaOrdered By: Marvin Peter on 11-04-2021 Albumin [Mass/Vol] 3.4 g/dL 3.2-5.5 [facility] Automated erythrocytes count in urine sediment (number/area)Ordered By: Marvin Peter on 11-04-2021 RBC Auto (Urine sed) [#/Area] Innumerable [HPF] 0-4 [facility] Automated leukocytes count i n urine sediment (number/area)Ordered By: Marvin Peter on 11-04-2021 WBC Auto (Urine sed) [#/Area] 50-100 [HPF] 0-4 [facility] Automated urine hyaline cast s count (number/volume)Ordered By: Marvin Peter on 11-04-2021 Hyaline casts Auto (U) [#/Vol] Rare [LPF] 0-1 [facility] Bilirubin Test strip Ql (U)O rdered By: Marvin Peter on 11-04-2021 Bilirubin Ql (U) Negative Negative [facility] COVID CepheidOrdered By: Artie Peter on 11-04-2021 SARS-CoV-2 (COVID-19) Ab IA Ql Negative Negative [facility] Comment on above: This is a duplicate Cepheid Xpert Xpress CoV-2/Flu/RSV Plus RNA by RT-PCR result to be used for statistical tracking purpose only. SARS-CoV-2 (COVID-19) RNA PIPE+probe Ql (Unsp spec) [facility] COVID-19 / Flu A/B / RSV PCR [...] or Cepheid Disclaimer revoked sooner. PERFORMED BY: [facility] [place] [address] PATHOLOGIST CO[employer]ARD SUPERVISOR FLIP GERMAN M.D. [facility] Comment on above: Performed By: [...] developed and its performance characteristic determined by [employer] and validated at [facility]. This test has not been FDA cleared [...] for SARS Antigen by [facility] PERFORMED BY: [facility] [address] [place] [address] PATHOLOGIST CO[employer] YARD SUPERVISOR FLIP GERMAN M.D. Normal [facility] Comment on above: Performed By: #### G IAN #### Point of Care testing , COVID-19 SOFIAOrdered By: Sina Peter on 11-04-2021 SARS-CoV+SARS-CoV-2 (COVID-19) Ag IA.rapid Ql (Resp) Negative Negative [facility] Comment on above: This is a duplicate Evita SARS Antigen (LAMONT) result to be used for statistical tracking purpose only. CT cervical spine wo conon 0 11-04-2021 CT cervical spine wo con [facility] [place] [address] CT Scan Report Signed Patient: Alton Barker MR#: [id number] 987 : 1940 Acct:[id number] Age/Sex: 81 / F ADM Date: 11/04/21 Loc: ER Room: Type: [facility] ER Attending Dr: Copies to: Marvin [...] Baltazar Saucedo M.D.11/04/2021 5:55 PM Dictation Location: [place] [address] Transcribed By: [facility] 11/04/211754 Dictated By: Baltazar Saucedo DO 11/04/211752 Signed By: 11/04/211754 [facility] CT head/brain wo conon 11-04 CT head/brain wo con [facility] Main [address] [address] [address] Scan Report Signed Patient: Alton Barker MR#: [id number] 987 : 1940 Acct:[id number] Age/Sex: 81 / F ADM Date: 11/04/21 Loc: ER Room: Type: [facility] ER Attending Dr: Copies to: Marvin [...] Baltazar Saucedo M.D.11/04/2021 5:52 PM Dictation Location: [place] [address] Transcribed By: [facility] 11/04/211751 Dictated By: Baltazar Saucedo DO 11/04/211747 Signed By: 11/04/211751 [facility] CT lumbar spine wo [facility] CT lumbar spine wo [facility] [place] [address] CT Scan Report Signed Patient: Alton Barker MR#: [id number] 987 : 1940 Acct:[id number] Age/Sex: 81 / F ADM Date: 11/04/21 Loc: ER Room: Type: [facility] ER Attending Dr: Copies to: Marvin [...] Baltazar Saucedo M.D.11/04/2021 6:06 PM Dictation Location: [place] [address] Transcribed By: [facility] 11/04/211805 Dictated By: Baltazar Saucedo DO 11/04/211800 Signed By: 11/04/211805 Normal [facility] CT thoracic spine wo conon 0 11-04-2021 CT thoracic spine wo con [facility] [place] [address] CT Scan Report Signed Patient: Alton Barker MR#: [id number] 987 : 1940 Acct:[id number] Age/Sex: 81 / F ADM Date: 11/04/21 Loc: ER Room: Type: [facility] ER Attending Dr: Copies to: Marvin [...] Baltazar Saucedo M.D.11/04/2021 6:00 PM Dictation Location: [place] [address] Transcribed By: [facility] 11/04/21 1800 Dictated By: Baltazar Saucedo DO 11/04/21 1758 Signed By: 11/04/21 1800 Normal [facility] Casts typing in urine sedime nt by light microscopyOrdered By: Marvin Peter on 11-04-2021 Casts LM Nom (Urine sed) None seen [LPF] None Seen [facility] Cepheid COVID PCR Negativeon 11-04-2021 SARS-CoV-2 (COVID-19) RNA PIPE+probe Ql (Unsp spec) Negative Normal Negative [facility] Comment on above: Result Comment: This is a duplicate Cepheid Xpert Xpress CoV-2/Flu/RSV Plus RNA by RT-PCR result to be used for statistical tracking purpose only. PERFORMED BY: [facility] [address] [place] [address] PATHOLOGIST [employer] SUPERVISOR FLIP GERMAN M.D. Performed By: #### G LULS #### Point of Care testing , Color Auto (U)Ordered By: Sina Peter on 11-04-2021 Color (U) Yellow Yellow [facility] Complete Blood Count Auto Di ffon 11-04-2021 Basophils (Bld) [#/Vol] 0.0 10*3/uL Normal 0.0-0.2 [facility] Comment on above: Result Comment: PERF ORMED BY: [facility] [address] [place] [address] PATHOLOGIST [employer] SUPERVISOR FLIP GERMAN M.D. Performed By: #### C MP, CBC ####[facility] [address] [place] [address] [facility] Basophils/100 WBC (Bld) 0.6 % Normal . [facility] Comment on above: Performed By: #### C MP, CBC ####[address] Eosinophils (Bld) [#/Vol] 0.1 10*3/uL Normal 0.0-0.45 [facility] Comment on above: Performed By: #### C MP, CBC ####[address] Eosinophils/100 WBC (Bld) 1.7 % Normal . [facility] Comment on above: Performed By: #### C MP, CBC ####[address] Erythrocyte distribution width (RBC) [Ratio] 16.3 % High 11.9-15.3 [facility] Comment on above: Performed By: #### C MP, CBC ####[address] Hematocrit (Bld) [Volume fraction] 39.2 % Normal 34.0-46.4 [facility] Comment on above: Performed By: #### C MP, CBC ####[address] Hemoglobin (Bld) [Mass/Vol] 12.8 g/dL Normal 11.8-15.4 [facility] Comment on above: Performed By: #### C MP, CBC ####[address] Lymphocytes (Bld) [#/Vol] 1.6 10*3/uL Normal 1.00-4.8 [facility] Comment on above: Performed By: #### C MP, CBC ####[address] Lymphocytes/100 WBC (Bld) 20.3 % Normal . [facility] Comment on above: Performed By: #### C MP, CBC ####[address] MCH (RBC) [Entitic mass] 29.2 pg Normal 24.7-34.3 [facility] Comment on above: Performed By: #### C MP, CBC ####[address] MCV (RBC) [Entitic vol] 89.5 fL Normal 80-100 [facility] Comment on above: Performed By: #### C MP, CBC ####[address] Mean Corpuscular HGB Conc 32.6 g/dL Normal 32.0-35.0 [facility] Comment on above: Performed By: #### C MP, CBC ####[address] Monocytes (Bld) [#/Vol] 0.8 10*3/uL Normal 0.0-0.8 [facility] Comment on above: Performed By: #### C MP, CBC ####[address] Monocytes/100 WBC (Bld) 9.7 % Normal . [facility] Comment on above: Performed By: #### C MP, CBC ####[address] Neutrophils (Bld) [#/Vol] 5.3 10*3/uL Normal 1.8-7.7 [facility] Comment on above: Performed By: #### C MP, CBC ####[address] Neutrophils/100 WBC (Bld) 67.7 % Normal . [facility] Comment on above: Performed By: #### C MP, CBC ####[address] Nucleated RBC/100 WBC (Bld) [Ratio] 0.1 % Normal 0-0.5 [facility] Comment on above: Performed By: #### C MP, CBC ####[address] Platelet mean volume (Bld) [Entitic vol] 7.9 fL Normal 6.3-10.7 [facility] Comment on above: Performed By: #### C MP, CBC ####[address] [address] [facility] Platelets (Bld) [#/Vol] 318 10*3/uL Normal 150-450 [facility] Comment on above: Performed By: #### C MP, CBC ####[place] [id number] [facility] RBC (Bld) [#/Vol] 4.38 10*6/uL Normal 3.60-5.00 [facility] Comment on above: Performed By: #### C MP, CBC ####[place] [id number] [facility] WBC (Bld) [#/Vol] 7.9 10*3/uL Normal 4.5-11.0 [facility] Comment on above: Performed By: #### C MP, CBC ####[place] [id number] [facility] Comprehensive Metabolic Pane loco 11-04-2021 Albumin [Mass/Vol] 3.4 g/dL Normal 3.2-5.5 [facility] Comment on above: Performed By: #### C MP, CBC ####[place] [id number] [facility] Albumin/Globulin [Mass ratio] 0.9 {ratio} Normal [facility] Comment on above: Performed By: #### C MP, CBC ####[place] [id number] [facility] ALP [Catalytic activity/Vol] 80 U/L Normal 32-92 [facility] Comment on above: Performed By: #### C MP, CBC ####[place] [id number] [facility] ALT [Catalytic activity/Vol] 7 U/L Low 10-60 [facility] Comment on above: Performed By: #### C MP, CBC ####[place] [id number] [facility] AST [Catalytic activity/Vol] 16 U/L Normal 10-42 [facility] Comment on above: Performed By: #### C MP, CBC ####[place] [id number] [facility] Bilirubin [Mass/Vol] 1.2 mg/dL Normal 0.3-1.2 [facility] Comment on above: Performed By: #### C MP, CBC ####[address] Calcium [Mass/Vol] 9.7 mg/dL Normal 8.2-10.2 [facility] Comment on above: Performed By: #### C MP, CBC ####[address] Chloride [Moles/Vol] 95 mmol/L Normal 95-114 [facility] Comment on above: Performed By: #### C MP, CBC ####[address] CO2 [Moles/Vol] 30.4 mmol/L High 22.0-30.0 [facility] Comment on above: Performed By: #### C MP, CBC ####[address] Creatinine [Mass/Vol] 0.61 mg/dL Normal 0.44-1.03 [facility] Comment on above: Performed By: #### C MP, CBC ####[place] [id number] [facility] Creatinine Clr Calc Pharmacy 64.44 Normal [facility] Comment on above: Result Comment: PERF ORMED BY: [facility] [address] [place] [address] PATHOLOGIST [employer] SUPERVISOR FLIP GERMAN M.D. Performed By: #### C MP, CBC ####[address] Estimated GFR ( Trsita > 60 Normal [facility] Comment on above: Result Comment: GFR estimated reference range: According to KDOQI guidelines, <60 ml/min/1.73m2 is sufficient to diagnose a patient with chronic kidney disease. Performed By: #### C MP, CBC ####[address] [address] [facility] Estimated GFR (Non- Am > 60 Normal [facility] Comment on above: Performed By: #### C MP, CBC ####[address] [address] [facility] Globulin (S) [Mass/Vol] 3.7 g/dL [facility] Comment on above: Performed By: #### C MP, CBC ####[address] [address] [facility] Glucose [Mass/Vol] 131 mg/dL High 70-100 [facility] Comment on above: Result Comment: [facility] Glucose Reference Range is dependent on time and content of last meal. Glucose of more than 200 mg/dL in a nonstressed, ambulatory subject supports the diagnosis of Diabetes Mellitus. ADA recommended reference range Performed By: #### C MP, CBC ####[address] [address] [facility] Potassium [Moles/Vol] 3.8 mmol/L Normal 3.5-5.1 [facility] Comment on above: Performed By: #### C MP, CBC ####[address] [address] [facility] Protein [Mass/Vol] 7.1 g/dL Normal 6.1-7.9 [facility] Comment on above: Performed By: #### C MP, CBC ####[address] [address] [facility] Sodium [Moles/Vol] 137 mmol/L Normal 136-146 [facility] Comment on above: Performed By: #### C MP, CBC ####[address] [address] [facility] Urea nitrogen [Mass/Vol] 14 mg/dL Normal 9-23 [facility] Comment on above: Performed By: #### C MP, CBC ####[address] [place] [address] [facility] Dipstick and Microscopicon 0 11-04-2021 Appearance (U) Cloudy Critically abnormal Clear [facility] Comment on above: Order Comment: Name Collection Type:: Voided Performed By: #### G LULS #### Point of Care testing , Bacteria,Urine 4+ High None Seen [facility] Comment on above: Order Comment: Name Collection Type:: Voided Performed By: #### G LULS #### Point of Care testing , Bilirubin,Urine Negative Normal Negative [facility] Comment on above: Order Comment: Name Collection Type:: Voided Performed By: #### G LULS #### Point of Care testing , Color (U) Yellow Normal Yellow [facility] Comment on above: Order Comment: Name Collection Type:: Voided Performed By: #### G LULS #### Point of Care testing , Glucose Ql (U) Normal Normal Normal [facility] Comment on above: Order Comment: Name Collection Type:: Voided Performed By: #### G LULS #### Point of Care testing , Hyaline Casts,Urine Rare Normal 0-1 [facility] Comment on above: Order Comment: Name Collection Type:: Voided Performed By: #### G LULS #### Point of Care testing , Ketones Ql (U) 1+ High Negative [facility] Comment on above: Order Comment: Name Collection Type:: Voided Performed By: #### G LULS #### Point of Care testing , Leukocyte esterase Test strip Ql (U) 3+ High Negative [facility] Comment on above: Order Comment: Name Collection Type:: Voided Performed By: #### G LULS #### Point of Care testing , Nitrite,Urine Positive High Negative [facility] Comment on above: Order Comment: Name Collection Type:: Voided Performed By: #### G LULS #### Point of Care testing , Occult Blood,Urine 3+ High Negative [facility] Comment on above: Order Comment: Name Collection Type:: Voided Result Comment: PERF ORMED BY: [facility] [address] [place] [address] PATHOLOGIST [employer] SUPERVISOR FLIP GERMAN M.D. Performed By: #### G LULS #### Point of Care testing , Other Casts,Urine None Seen Normal None Seen [facility] Comment on above: Order Comment: Name Collection Type:: Voided Result Comment: PERF ORMED BY: [facility] [place] [address] PATHOLOGIST [employer] SUPERVISOR FLIP GERMAN M.D. Performed By: #### G LULS #### Point of Care testing , pH (U) 5.5 [pH] Normal 5.0-9.0 [facility] Comment on above: Order Comment: Name Collection Type:: Voided Performed By: #### G LULS #### Point of Care testing , Protein (U) [Mass/Vol] 30 mg/dL High Negative [facility] Comment on above: Order Comment: Name Collection Type:: Voided Performed By: #### G LULS #### Point of Care testing , RBC,Urine Innumerable High 0-4 [facility] Comment on above: Order Comment: Name Collection Type:: Voided Performed By: #### G LULS #### Point of Care testing , Specificy [place],Urine 1.029 Normal 1.001-1.03 0 [facility] Comment on above: Order Comment: Name Collection Type:: Voided Performed By: #### G LULS #### Point of Care testing , Squamous Epithelial Cell,Urine 5-9 High 0-2 [facility] Comment on above: Order Comment: Name Collection Type:: Voided Performed By: #### G LULS #### Point of Care testing , Urobilinogen,Urine Normal Normal Normal [facility] Comment on above: Order Comment: Name Collection Type:: Voided Performed By: #### G LULS #### Point of Care testing , WBC,Urine 50-100 High 0-4 [facility] Comment on above: Order Comment: Name Collection Type:: Voided Performed By: #### G LULS #### Point of Care testing , Globulin Calc (S) [Mass/Vol] Ordered By: Marvin Peter on 11-04-2021 Globulin (S) [Mass/Vol] 3.7 g/dL [facility] Ketones Auto test strip (U) [Mass/Vol]Ordered By: Marvin Peter on 11-04-2021 Ketones (U) [Mass/Vol] 1+ Negative [facility] Nitrite Test strip Ql (U)Ord ered By: Marvin Peter on 11-04-2021 Nitrite Ql (U) Positive Negative [facility] No Panel InformationOrdered By: Enrrique Mota on 11-04-2021 25-Hydroxy Vitamin D Total 71.4 ng/mL 30-100 [facility] Comment on above: VITAMIN D STATUS 25( [...] 11-04-2021 Protein (U) [Mass/Vol] 30 mg/dL Negative [facility] Protein [Mass/volume] in Ser um or PlasmaOrdered By: Marvin Peter on 11-04-2021 Protein [Mass/Vol] 7.1 g/dL 6.1-7.9 [facility] Prothrombin Time INRon 11-04 INR Coag (PPP) [Relative time] 8.2 {INR} Off scale high [facility] Comment on above: Result Comment: Crit ical [...] heart valves: 3 - 4.5 PERFORMED BY: [facility] [address] [place] [address] PATHOLOGIST [employer] SUPERVISOR FLIP GERMAN M.D. Performed By: #### G LULS #### Point of Care testing , PT Coag (PPP) [Time] 96.2 s High 9.0-12.9 [facility] Comment on above: Performed By: #### G LULS #### Point of Care testing , Serum or plasma alanine engel otransferase measurement without P-5'-P (enzymatic activiOrdered By: Marvin Peter on 11-04-2021 ALT No additional P-5'-P [Catalytic activity/Vol] 7 U/L 10-60 [facility] Serum or plasma albumin/glob ulin mass ratioOrdered By: Marvin Peter on 11-04-2021 Albumin/Globulin [Mass ratio] 0.9 {ratio} [facility] Serum or plasma alkaline bouchra sphatase measurement (enzymatic activity/volume)Ordered By: Marvin Peter on 11-04-2021 ALP [Catalytic activity/Vol] 80 U/L 32-92 [facility] Serum or plasma aspartate am inotransferase measurement (enzymatic activity/volume)Ordered By: Marvin Peter on 11-04-2021 AST [Catalytic activity/Vol] 16 U/L 10-42 [facility] Serum or plasma total biliru bin measurement (mass/volume)Ordered By: Marvin Peter on 11-04-2021 Bilirubin [Mass/Vol] 1.2 mg/dL 0.3-1.2 [facility] Evita Ag Negativeon 11-05-19 Evita Ag Negative Negative Normal Negative [facility] Comment on above: Result Comment: This is a duplicate Evita SARS Antigen (LAMONT) result to be used for statistical tracking purpose only. PERFORMED BY: [facility] [address] [place] [address] PATHOLOGIST [employer] SUPERVISOR FLIP GERMAN M.D. Performed By: #### G IAN #### Point of Care testing , Specific gravity Auto test s trip (U) [Rel density]Ordered By: Marvin Peter on 11-04-2021 Specific gravity (U) [Rel density] 1.029 1.001-1.03 0 [facility] Squamous epithelial cells de tection in urine sediment by light microscopyOrdered By: Marvin Peter on 11-04-2021 Epithelial cells.squamous LM Ql (Urine sed) 5-9 [HPF] 0-2 [facility] TSH DL <= 0.005 mIU/L QnOrde red By: Enrrique Mota on 11-04-2021 TSH Qn 2.09 m[IU]/L 0.45-5.33 [facility] Thyroid Stimulating Hormoneo n 11-04-2021 TSH Qn 2.09 m[IU]/L Normal 0.45-5.33 [facility] Comment on above: Order Comment: Bobby melendez addon Result Comment: PERF ORMED BY: [facility] [address] [place] [address] PATHOLOGIST [employer] SUPERVISOR FLIP GERMAN M.D. Performed By: #### G IAN #### Point of Care testing , Urine Cultureon 11-04-2021 Bacteria identified Cx Nom (U) ORGANISM: Escherichia coli (O:ESCCOL) [place] Count >100,000 Aerobic JIMMY Charge (NUC86) SUSCEPTIBILITY [...] RESISTANT TO ALL B-LACTAM DRUGS. PERFORMED BY: [facility] [address] [place] [address] PATHOLOGIST [employer] SUPERVISOR FLIP GERMAN M.D. [facility] Comment on above: Performed By: #### G LULS #### Point of Care testing , Urine bacteria detection by automated methodOrdered By: Marvin Peter on 11-04-2021 Bacteria Auto Ql (U) 4+ None Seen [facility] Urine clarity by refractomet ry automatedOrdered By: Marvin Petre on 11-04-2021 Clarity Refractometry automated (U) Cloudy Clear [facility] Urine glucose measurement by automated test strip (mass/volume)Ordered By: Marvin Peter on 11-04-2021 Glucose Auto test strip (U) [Mass/Vol] Normal mg/dL Normal [facility] Urine hemoglobin detection b y automated test stripOrdered By: Marvin Peter on 11-04-2021 Hemoglobin Auto test strip Ql (U) 3+ Negative [facility] Urine leukocyte esterase det ection by automated test stripOrdered By: Marvin Peter on 11-04-2021 Leukocyte esterase Auto test strip Ql (U) 3+ Negative [facility] Urobilinogen Auto test strip (U) [Mass/Vol]Ordered By: Marvin Peter on 11-04-2021 Urobilinogen (U) [Mass/Vol] Normal mg/dL Normal [facility] Vitamin D 25 Hydroxy Totalon 11-04-2021 Vitamin D 25 Hydroxy Total 71.4 ng/mL Normal 30-100 [facility] Comment on above: Order Comment: Comme nt addon Result Comment: FREDERIC MIN D STATUS 25(OH)VITAMIN D RANGE (ng/mL) Deficient <20 Insufficient 20 to <30 Sufficient 30 to 100 Reference: Earl MF,Ken NC, Yoandy PEDERSEN, et al. Evaluation,treatment, and prevention of vitamin D deficiency; an Endocrine Society clinical practice guideline. JCEM. 2010; 96(7):1911-30. PERFORMED BY: [place] [address] PATHOLOGIST CO[employer]ARD SUPERVISOR FLIP GERMAN M.D. Performed By: #### V [id number] ####[facility] [address] [place] [address] [facility] pH Auto test strip (U)Ordere d By: Marvin Peter on 11-04-2021 pH (U) 5.5 [pH] 5.0-9.0 [facility] Prothrombin Time INRon 10-22 INR Coag (PPP) [Relative time] 4.5 {INR} [facility] AddMyBest Other Prothrombin Time INR [facility] AddMyBest Other CT head/brain wo conon 10-20 CT head/brain wo con [facility] Main [place] [address] [place], [place] [id number] CT Scan Report Signed Patient: Alton Barker MR#: [id number] 987 : 1940 Acct:[id number] Age/Sex: 81 / F ADM Date: 10/19/21 Loc: ER Room: Type: [facility] ER Attending Dr: Copies to: [...] Vijay Holden M.D.10/20/2021 8:09 AM Dictation Location: [place] [address] Transcribed By: [facility] 10/20/21808 Dictated By: Vijay Holden II, MD 10/20/21805 Signed By: 10/20/21808 Normal [facility] XR lumbar spine 2-3V*on XR lumbar spine 2-3V* [facility] Main [place] [address] [place] [address] XRay Report Signed Patient: Alton Barker MR#: [id number] 987 : 1940 Acct:[id number] Age/Sex: 81 / F ADM Date: 10/19/21 Loc: ER Room: Type: [facility] ER Attending Dr: Copies to: [...] Vijay Holden M.D.10/20/2021 8:11 AM Dictation Location: [place] [address] Transcribed By: SHERINE 10/20/21 08 Dictated By: Vijay Holden II, MD 10/20/21 0809 Signed By: 10/20/21 08 Normal [facility] Urine culture routineOrdered By: Sumanth Lowe on 09-30-2021 Bacteria identified Cx Nom (U) Escherichia coli [facility] Prothrombin Time INRon 09-29 INR Coag (PPP) [Relative time] 3.3 {INR} [facility] [employer] Other Prothrombin Time INR [facility] [employer] Other Automated erythrocytes count in urine sediment (number/area)Ordered By: Sumanth Lowe on 09-28-2021 RBC Auto (Urine sed) [#/Area] 10-19 [HPF] 0-4 [facility] Automated leukocytes count i n urine sediment (number/area)Ordered By: Sumanth Lowe on 09-28-2021 WBC Auto (Urine sed) [#/Area] 20-49 [HPF] 0-4 [facility] Basophils Auto (Bld) [#/Vol] Ordered By: Sumanth Lowe on 09-28-2021 Basophils (Bld) [#/Vol] 0.0 10*3/uL 0.0-0.2 [facility] Basophils/100 WBC Auto (Bld) Ordered By: Sumanth Lowe on 09-28-2021 Basophils/100 WBC (Bld) 0.4 % . [facility] Bilirubin Test strip Ql (U)O rdered By: Sumanth Lowe on 09-28-2021 Bilirubin Ql (U) Negative Negative [facility] Blood hemoglobin measurement (mass/volume)Ordered By: Sumanth Lowe on 09-28-2021 Hemoglobin (Bld) [Mass/Vol] 12.3 g/dL 11.8-15.4 [facility] Blood leukocytes automated c ount (number/volume)Ordered By: Sumanthraffy Lowe on 09-28-2021 WBC (Bld) [#/Vol] 5.1 10*3/uL 4.5-11.0 [facility] Body fluid albumin measureme nt (mass/volume)Ordered By: Sumanth Lowe on 09-28-2021 Albumin (Body fld) [Mass/Vol] 3.3 g/dL 3.2-5.5 [facility] Color Auto (U)Ordered By: Giuseppe Lowe on 09-28-2021 Color (U) Yellow Yellow [facility] Complete Blood Count Auto Di ffon 09-28-2021 Basophils (Bld) [#/Vol] 0.0 10*3/uL Normal 0.0-0.2 [facility] Comment on above: Result Comment: PERF ORMED BY: [facility] [address] [place] [address] PATHOLOGIST [employer] SUPERVISOR FLIP GERMAN M.D. Performed By: #### C CHEN, CMP ####[address] Basophils/100 WBC (Bld) 0.4 % Normal . [facility] Comment on above: Performed By: #### C BC, CMP ####[address] Eosinophils (Bld) [#/Vol] 0.0 10*3/uL Normal 0.0-0.45 [facility] Comment on above: Performed By: #### C BC, CMP ####[address] Eosinophils/100 WBC (Bld) 0.4 % Normal . [facility] Comment on above: Performed By: #### C BC, CMP ####[address] Erythrocyte distribution width (RBC) [Ratio] 15.9 % High 11.9-15.3 [facility] Comment on above: Performed By: #### C BC, CMP ####[address] Hematocrit (Bld) [Volume fraction] 37.5 % Normal 34.0-46.4 [facility] Comment on above: Performed By: #### C BC, CMP ####[address] Hemoglobin (Bld) [Mass/Vol] 12.3 g/dL Normal 11.8-15.4 [facility] Comment on above: Performed By: #### C BC, CMP ####[address] Lymphocytes (Bld) [#/Vol] 0.8 10*3/uL Low 1.00-4.8 [facility] Comment on above: Performed By: #### C BC, CMP ####[address] Lymphocytes/100 WBC (Bld) 16.2 % Normal . [facility] Comment on above: Performed By: #### C BC, CMP ####[address] MCH (RBC) [Entitic mass] 29.5 pg Normal 24.7-34.3 [facility] Comment on above: Performed By: #### C BC, CMP ####[address] MCV (RBC) [Entitic vol] 90.3 fL Normal 80-100 [facility] Comment on above: Performed By: #### C BC, CMP ####[place] [id number] [facility] Mean Corpuscular HGB Conc 32.7 g/dL Normal 32.0-35.0 [facility] Comment on above: Performed By: #### C BC, CMP ####[address] Monocytes (Bld) [#/Vol] 0.7 10*3/uL Normal 0.0-0.8 [facility] Comment on above: Performed By: #### C BC, CMP ####[address] [address] [facility] Monocytes/100 WBC (Bld) 13.9 % Normal . [facility] Comment on above: Performed By: #### C BC, CMP ####[address] [address] [facility] Neutrophils (Bld) [#/Vol] 3.5 10*3/uL Normal 1.8-7.7 [facility] Comment on above: Performed By: #### C BC, CMP ####[address] [address] [facility] Neutrophils/100 WBC (Bld) 69.1 % Normal . [facility] Comment on above: Performed By: #### C BC, CMP ####[address] [address] [facility] Nucleated RBC/100 WBC (Bld) [Ratio] 0.0 % Normal 0-0.5 [facility] Comment on above: Performed By: #### C BC, CMP ####[place] [id number] [facility] Platelet mean volume (Bld) [Entitic vol] 8.6 fL Normal 6.3-10.7 [facility] Comment on above: Performed By: #### C BC, CMP ####[address] [address] [place] Platelets (Bld) [#/Vol] 154 10*3/uL Normal 150-450 [facility] Comment on above: Performed By: #### C BC, CMP ####[address] [address] [facility] RBC (Bld) [#/Vol] 4.16 10*6/uL Normal 3.60-5.00 [facility] Comment on above: Performed By: #### C BC, CMP ####[place] [id number] [place] WBC (Bld) [#/Vol] 5.1 10*3/uL Normal 4.5-11.0 [facility] Comment on above: Performed By: #### C BC, CMP ####[address] [address] [facility] Comprehensive Metabolic Pane loco 09-28-2021 Albumin [Mass/Vol] 3.3 g/dL Normal 3.2-5.5 [facility] Comment on above: Performed By: #### C BC, CMP ####[place] [id number] [facility] Albumin/Globulin [Mass ratio] 0.9 {ratio} Normal [facility] Comment on above: Performed By: #### C CHEN, CMP ####[place] [id number] [facility] ALP [Catalytic activity/Vol] 51 U/L Normal 32-92 [facility] Comment on above: Performed By: #### C CHEN, CMP ####[place] [id number] [facility] ALT [Catalytic activity/Vol] 7 U/L Low 10-60 [facility] Comment on above: Performed By: #### C CHEN, CMP ####[place] [id number] [facility] AST [Catalytic activity/Vol] 20 U/L Normal 10-42 [facility] Comment on above: Performed By: #### C CHEN, CMP ####[place] [id number] [facility] Bilirubin [Mass/Vol] 1.0 mg/dL Normal 0.3-1.2 [facility] Comment on above: Performed By: #### C BC, CMP ####[place] [id number] [facility] Calcium [Mass/Vol] 8.9 mg/dL Normal 8.2-10.2 [facility] Comment on above: Performed By: #### C BC, CMP ####[place] [id number] [facility] Chloride [Moles/Vol] 95 mmol/L Normal 95-114 [facility] Comment on above: Performed By: #### C BC, CMP ####[place] [address] [place] [address] [facility] CO2 [Moles/Vol] 29.5 mmol/L Normal 22.0-30.0 [facility] Comment on above: Performed By: #### C BC, CMP ####[address] [address] [facility] Creatinine [Mass/Vol] 0.67 mg/dL Normal 0.44-1.03 [facility] Comment on above: Performed By: #### C BC, CMP ####[address] [address] [facility] Creatinine Clr Calc Pharmacy 66.85 [facility] Comment on above: Result Comment: PERF ORMED BY: [facility] [address] [place] [address] PATHOLOGIST [employer] SUPERVISOR FLIP GERMAN M.D. Performed By: #### C BC, CMP ####[address] [address] [facility] Estimated GFR ( Trista > 60 [facility] Comment on above: Result Comment: GFR estimated reference range: According to KDOQI guidelines, <60 ml/min/1.73m2 is sufficient to diagnose a patient with chronic kidney disease. Performed By: #### C BC, CMP ####[place] [id number] [facility] Estimated GFR (Non- Am > 60 [facility] Comment on above: Performed By: #### C BC, CMP ####[address] [address] [facility] Globulin (S) [Mass/Vol] 3.6 g/dL [facility] Comment on above: Performed By: #### C BC, CMP ####[place] [address] [place] [address] [facility] Glucose [Mass/Vol] 146 mg/dL High 70-100 [facility] Comment on above: Result Comment: [place] om Glucose Reference Range is dependent on time and content of last meal. Glucose of more than 200 mg/dL in a nonstressed, ambulatory subject supports the diagnosis of Diabetes Mellitus. ADA recommended reference range Performed By: #### C BC, CMP ####[facility] [address] [place] [address] [facility] Potassium [Moles/Vol] 3.5 mmol/L Normal 3.5-5.1 [facility] Comment on above: Performed By: #### C BC, CMP ####[facility] [place] [address] [facility] Protein [Mass/Vol] 6.9 g/dL Normal 6.1-7.9 [facility] Comment on above: Performed By: #### C CHEN, CMP ####[facility] [place] [id number] [facility] Sodium [Moles/Vol] 136 mmol/L Normal 136-146 [facility] Comment on above: Performed By: #### C CHEN, CMP ####[facility] [place] [id number] [facility] Urea nitrogen [Mass/Vol] 7 mg/dL Low 9-23 [facility] Comment on above: Performed By: #### C CHEN, CMP ####[facility] [place] [id number] [facility] Creatinine and Glomerular fi ltration rate.predicted panel (S/P/Bld)Ordered By: Sumanth Lowe on 09-28-2021 Creatinine [Mass/Vol] 0.67 mg/dL 0.44-1.03 [facility] Dipstick and Microscopicon 0 09-28-2021 Appearance (U) Cloudy Critically abnormal Clear [facility] Comment on above: Order Comment: Name Collection Type:: Clean-Voided Midstream Performed By: #### G LULS #### Point of Care testing , Bacteria,Urine 3+ High None Seen [facility] Comment on above: Order Comment: Name Collection Type:: Clean-Voided Midstream Performed By: #### G LULS #### Point of Care testing , Bilirubin,Urine Negative Normal Negative [facility] Comment on above: Order Comment: Name Collection Type:: Clean-Voided Midstream Performed By: #### G LULS #### Point of Care testing , Color (U) Yellow Normal Yellow [facility] Comment on above: Order Comment: Name Collection Type:: Clean-Voided Midstream Performed By: #### G LULS #### Point of Care testing , Glucose Ql (U) Normal Normal Normal [facility] Comment on above: Order Comment: Name Collection Type:: Clean-Voided Midstream Performed By: #### G LULS #### Point of Care testing , Hyaline Casts,Urine 0-8 Normal 0-8 [facility] Comment on above: Order Comment: Name Collection Type:: Clean-Voided Midstream Performed By: #### G LULS #### Point of Care testing , Ketones Ql (U) 2+ High Negative [facility] Comment on above: Order Comment: Name Collection Type:: Clean-Voided Midstream Performed By: #### G LULS #### Point of Care testing , Leukocyte esterase Test strip Ql (U) 2+ High Negative [facility] Comment on above: Order Comment: Name Collection Type:: Clean-Voided Midstream Performed By: #### G LULS #### Point of Care testing , Nitrite,Urine Positive High Negative [facility] Comment on above: Order Comment: Name Collection Type:: Clean-Voided Midstream Performed By: #### G LULS #### Point of Care testing , Occult Blood,Urine 2+ High Negative [facility] Comment on above: Order Comment: Name Collection Type:: Clean-Voided Midstream Result Comment: PERF ORMED BY: [facility] [address] [place] [address] PATHOLOGIST [employer] SUPERVISOR FLIP GERMAN M.D. Performed By: #### G LULS #### Point of Care testing , pH (U) 6.5 [pH] Normal 5.0-9.0 [facility] Comment on above: Order Comment: Name Collection Type:: Clean-Voided Midstream Performed By: #### G LULS #### Point of Care testing , Protein,Urine Negative Normal Negative [facility] Comment on above: Order Comment: Name Collection Type:: Clean-Voided Midstream Performed By: #### G LULS #### Point of Care testing , RBC,Urine 10-19 High 0-4 [facility] Comment on above: Order Comment: Name Collection Type:: Clean-Voided Midstream Performed By: #### G LULS #### Point of Care testing , Specificy [place],Urine 1.013 Normal 1.001-1.03 0 [facility] Comment on above: Order Comment: Name Collection Type:: Clean-Voided Midstream Performed By: #### G LULS #### Point of Care testing , Squamous Epithelial Cell,Urine None Seen Normal 0-2 [facility] Comment on above: Order Comment: Name Collection Type:: Clean-Voided Midstream Performed By: #### G LULS #### Point of Care testing , Urobilinogen,Urine Normal Normal Normal [facility] Comment on above: Order Comment: Name Collection Type:: Clean-Voided Midstream Performed By: #### G LULS #### Point of Care testing , WBC,Urine 20-49 High 0-4 [facility] Comment on above: Order Comment: Name Collection Type:: Clean-Voided Midstream Performed By: #### G LULS #### Point of Care testing , Yeast,Urine None Seen Normal None Seen [facility] Comment on above: Order Comment: Name Collection Type:: Clean-Voided Midstream Result Comment: PERF ORMED BY: [place] [address] PATHOLOGIST [employer] SUPERVISOR FLIP GERMAN M.D. Performed By: #### G LULS #### Point of Care testing , ECG 12 lead ECGon 09-28-2021 ECG 12 lead ECG [facility] [place] [address] Electrocardiograph Report Signed Patient: Alton Barker MR#: [id number] 987 : 1940 Acct:[id number] Age/Sex: 81 / F ADM Date: 09/27/21 [...] Signed By Sumanth Lowe DO 0601 Normal [facility] Eosinophils Auto (Bld) [#/Vo l]Ordered By: Sumanth Lowe on 09-28-2021 Eosinophils (Bld) [#/Vol] 0.0 10*3/uL 0.0-0.45 [facility] Eosinophils/100 WBC Auto (Bl d)Ordered By: Sumanth Lowe on 09-28-2021 Eosinophils/100 WBC (Bld) 0.4 % . [facility] Erythrocyte distribution wid th Auto (RBC) [Ratio]Ordered By: Sumanth Lowe on 09-28-2021 Erythrocyte distribution width (RBC) [Ratio] 15.9 % 11.9-15.3 [facility] Estimated glomerular filtrat ion rate (GFR) non- AmericanOrdered By: Sumanth Lowe on 09-28-2021 GFR/1.73 sq M.predicted among non-blacks MDRD (S/P/Bld) [Vol rate/Area] > 60 mL/Min [facility] Globulin Calc (S) [Mass/Vol] Ordered By: Sumanth Lowe on 09-28-2021 Globulin (S) [Mass/Vol] 3.6 g/dL [facility] Hematocrit Auto (Bld) [Volum e fraction]Ordered By: Sumanth Lowe on 09-28-2021 Hematocrit (Bld) [Volume fraction] 37.5 % 34.0-46.4 [facility] Ketones Auto test strip (U) [Mass/Vol]Ordered By: Sumanth Lowe on 09-28-2021 Ketones (U) [Mass/Vol] 2+ Negative [facility] Laboratory - Hematology and Cell countsOrdered By: Sumanth Lowe on 09-28-2021 Nucleated RBC/100 WBC (Bld) [Ratio] 0.0 % 0-0.5 [facility] Laboratory - UrinalysisOrder ed By: Sumanth Lowe on 09-28-2021 Hyaline casts LM Ql (Urine sed) 0-8 [LPF] 0-8 [facility] Lymphocytes Auto (Bld) [#/Vo l]Ordered By: Sumanth Lowe on 09-28-2021 Lymphocytes (Bld) [#/Vol] 0.8 10*3/uL 1.00-4.8 [facility] Lymphocytes/100 WBC Auto (Bl d)Ordered By: Sumanth Lowe on 09-28-2021 Lymphocytes/100 WBC (Bld) 16.2 % . [facility] MCH Auto (RBC) [Entitic mass ]Ordered By: Sumanth Lowe on 09-28-2021 MCH (RBC) [Entitic mass] 29.5 pg 24.7-34.3 [facility] MCHC Auto (RBC) [Mass/Vol]Or dered By: Sumanth Lowe on 09-28-2021 MCHC (RBC) [Mass/Vol] 32.7 g/dL 32.0-35.0 [facility] MCV Auto (RBC) [Entitic vol] Ordered By: Sumanth Lowe on 09-28-2021 MCV (RBC) [Entitic vol] 90.3 fL 80-100 [facility] Monocytes Auto (Bld) [#/Vol] Ordered By: Sumanth Lowe on 09-28-2021 Monocytes (Bld) [#/Vol] 0.7 10*3/uL 0.0-0.8 [facility] Monocytes/100 WBC Auto (Bld) Ordered By: Sumanth Lowe on 09-28-2021 Monocytes/100 WBC (Bld) 13.9 % . [facility] Neutrophils Auto (Bld) [#/Vo l]Ordered By: Sumanth Lowe on 09-28-2021 Neutrophils (Bld) [#/Vol] 3.5 10*3/uL 1.8-7.7 [facility] Neutrophils/100 WBC Auto (Bl d)Ordered By: Sumanth Lowe on 09-28-2021 Neutrophils/100 WBC (Bld) 69.1 % . [facility] Nitrite Test strip Ql (U)Ord ered By: Sumanth Lowe on 09-28-2021 Nitrite Ql (U) Positive Negative [facility] No Panel InformationOrdered By: Sumanth Lowe on 09-28-2021 Estimated GFR () > 60 mL/Min [facility] Comment on above: GFR estimated refere nce range: According to KDOQI guidelines, <60 ml/min/1.73m2 is sufficient to diagnose a patient with chronic kidney disease. Pharmacy Creatinine Clearance (Chem 66.85 [facility] Platelet mean volume Auto (B ld) [Entitic vol]Ordered By: Sumanth Lowe on 09-28-2021 Platelet mean volume (Bld) [Entitic vol] 8.6 fL 6.3-10.7 [facility] Platelets Auto (Bld) [#/Vol] Ordered By: Sumanth Lowe on 09-28-2021 Platelets (Bld) [#/Vol] 154 10*3/uL 150-450 [facility] Protein Auto test strip (U) [Mass/Vol]Ordered By: Sumanth Lowe on 09-28-2021 Protein (U) [Mass/Vol] Negative Negative [facility] Protein [Mass/volume] in Ser um or PlasmaOrdered By: Sumanth Lowe on 09-28-2021 Protein [Mass/Vol] 6.9 g/dL 6.1-7.9 [facility] RBC Auto (Bld) [#/Vol]Ordere d By: Sumanth Lowe on 09-28-2021 RBC (Bld) [#/Vol] 4.16 10*6/uL 3.60-5.00 [facility] Serum or plasma alanine engel otransferase measurement without P-5'-P (enzymatic activiOrdered By: Sumanth Lowe on 09-28-2021 ALT No additional P-5'-P [Catalytic activity/Vol] 7 U/L 10-60 [facility] Serum or plasma albumin/glob ulin mass ratioOrdered By: Sumanth Lowe on 09-28-2021 Albumin/Globulin [Mass ratio] 0.9 {ratio} [facility] Serum or plasma alkaline bouchra sphatase measurement (enzymatic activity/volume)Ordered By: Sumanth Lowe on 09-28-2021 ALP [Catalytic activity/Vol] 51 U/L 32-92 [facility] Serum or plasma aspartate am inotransferase measurement (enzymatic activity/volume)Ordered By: Sumanth Lowe on 09-28-2021 AST [Catalytic activity/Vol] 20 U/L 10-42 [facility] Serum or plasma calcium alondra urement (mass/volume)Ordered By: Sumanth Lowe on 09-28-2021 Calcium [Mass/Vol] 8.9 mg/dL 8.2-10.2 [facility] Serum or plasma chloride link surement (moles/volume)Ordered By: Sumanth Lowe on 09-28-2021 Chloride [Moles/Vol] 95 mmol/L 95-114 [facility] Serum or plasma glucose alondra urement (mass/volume)Ordered By: Sumanth Lowe on 09-28-2021 Glucose [Mass/Vol] 146 mg/dL 70-100 [facility] Comment on above: ADA recommended refe rence range Random Glucose Reference Range is dependent on time and content of last meal. Glucose of more than 200 mg/dL in a nonstressed, ambulatory subject supports the diagnosis of Diabetes Mellitus. Serum or plasma potassium me asurement (moles/volume)Ordered By: Sumanth Lowe on 09-28-2021 Potassium [Moles/Vol] 3.5 mmol/L 3.5-5.1 [facility] Serum or plasma sodium measu rement (moles/volume)Ordered By: Sumanth Lowe on 09-28-2021 Sodium [Moles/Vol] 136 mmol/L 136-146 [facility] Serum or plasma total biliru bin measurement (mass/volume)Ordered By: Sumanth Lowe on 09-28-2021 Bilirubin [Mass/Vol] 1.0 mg/dL 0.3-1.2 [facility] Serum or plasma total carbon dioxide measurement (moles/volume)Ordered By: Sumanth Lowe on 09-28-2021 CO2 [Moles/Vol] 29.5 mmol/L 22.0-30.0 [facility] Serum or plasma urea nitroge n measurement (mass/volume)Ordered By: Sumanth Lowe on 09-28-2021 Urea nitrogen [Mass/Vol] 7 mg/dL 9-23 [facility] Specific gravity Auto test s trip (U) [Rel density]Ordered By: Sumanth Lowe on 09-28-2021 Specific gravity (U) [Rel density] 1.013 1.001-1.03 0 [facility] Squamous epithelial cells de tection in urine sediment by light microscopyOrdered By: Sumanth Lowe on 09-28-2021 Epithelial cells.squamous LM Ql (Urine sed) None seen [HPF] 0-2 [facility] Urine Cultureon 09-28-2021 Bacteria identified Cx Nom (U) ORGANISM: Escherichia coli (O:ESCCOL) [place] Count >100,000 Aerobic JIMMY Charge (NUC86) SUSCEPTIBILITY [...] RESISTANT TO ALL B-LACTAM DRUGS. PERFORMED BY: [place] [address] PATHOLOGIST [employer] SUPERVISOR FLIP GERMAN M.D. Normal [facility] Comment on above: Performed By: #### G LULS #### Point of Care testing , Urine bacteria detection by automated methodOrdered By: Sumanth Lowe on 09-28-2021 Bacteria Auto Ql (U) 3+ None Seen [facility] Urine clarity by refractomet ry automatedOrdered By: Sumanth Lowe on 09-28-2021 Clarity Refractometry automated (U) Cloudy Clear [facility] Urine glucose measurement by automated test strip (mass/volume)Ordered By: Sumanth Lowe on 09-28-2021 Glucose Auto test strip (U) [Mass/Vol] Normal mg/dL Normal [facility] Urine hemoglobin detection b y automated test stripOrdered By: Sumanth Lowe on 09-28-2021 Hemoglobin Auto test strip Ql (U) 2+ Negative [facility] Urine leukocyte esterase det ection by automated test stripOrdered By: Sumanth Lowe on 09-28-2021 Leukocyte esterase Auto test strip Ql (U) 2+ Negative [facility] Urobilinogen Auto test strip (U) [Mass/Vol]Ordered By: Sumanth Lowe on 09-28-2021 Urobilinogen (U) [Mass/Vol] Normal mg/dL Normal [facility] XR chest 2V*on 09-28-2021 XR chest 2V* [facility] [address] [address] XRay Report Signed Patient: Alton Barker MR#: [id number] 987 : 1940 Acct:[id number] Age/Sex: 81 / F ADM Date: 09/27/21 Loc: ER Room: Type: [facility] ER Attending Dr: Copies to: [...] Malin Jr., D.OJoann09/28/2021 9:27 AM Dictation Location: [place] [address] Transcribed By: [facility] 09/28/[address] Dictated By: Alcides Malin Jr, DO 09/28/[address]26 Signed By: 09/28/[address] Normal [facility] Yeast detection in urine sed iment by light microscopyOrdered By: Sumanth Lowe on 09-28-2021 Yeast LM Ql (Urine sed) None seen [HPF] None Seen [facility] pH Auto test strip (U)Ordere d By: Sumanth Lowe on 09-28-2021 pH (U) 6.5 [pH] 5.0-9.0 [facility] Prothrombin Time INRon 08-26 INR Coag (PPP) [Relative time] 2.1 {INR} [facility] [employer] Other Prothrombin Time INR [facility] [employer] Other Prothrombin Time INRon 08-05 INR Coag (PPP) [Relative time] 2.3 {INR} [facility] [employer] Other Prothrombin Time INR [facility] [employer] Other Complete Blood Count with Au to Diffon 07-16-2021 Basophils (Bld) [#/Vol] 0.02 10*3/uL Normal 0.00-0.20 [facility] [employer] Comment on above: Performed By: #### L IPD, TSH, CMP, VITD, CBCAD #### [facility] [address] [place], [place] [id number] Basophils/100 WBC (Bld) 0.3 % Normal [facility] [employer] Comment on above: Performed By: #### L IPD, TSH, CMP, VITD, CBCAD #### [facility] [address] [place], [place] [id number] Eosinophils (Bld) [#/Vol] 0.17 10*3/uL Normal 0.02-0.50 [facility] Specialist Comment on above: Performed By: #### L IPD, TSH, CMP, VITD, CBCAD #### [facility] [address] [place], [place] [id number] Eosinophils/100 WBC (Bld) 2.8 % Normal [facility] Specialist Comment on above: Performed By: #### L IPD, TSH, CMP, VITD, CBCAD #### [facility] [address] [place], [place] [id number] Erythrocyte distribution width (RBC) [Ratio] 15.0 % Normal 11.0-15.0 [facility] [employer] Comment on above: Performed By: #### L IPD, TSH, CMP, VITD, CBCAD #### [facility] [address] [place], [place] [id number] Hematocrit (Bld) [Volume fraction] 39.2 % Normal 35.0-47.0 [facility] [employer] Comment on above: Performed By: #### L IPD, TSH, CMP, VITD, CBCAD #### [facility] [address] [place], [place] [id number] Hemoglobin (Bld) [Mass/Vol] 12.0 g/dL Normal 11.6-15.5 [facility] [employer] Comment on above: Performed By: #### L IPD, TSH, CMP, VITD, CBCAD #### [facility] [address] [place], [place] [id number] Lymphocytes (Bld) [#/Vol] 1.7 10*3/uL Normal 0.9-3.9 [facility] Specialist Comment on above: Performed By: #### L IPD, TSH, CMP, VITD, CBCAD #### [facility] [address] [place], [place] [id number] Lymphocytes/100 WBC (Bld) 27.5 % Normal [facility] Specialist Comment on above: Performed By: #### L IPD, TSH, CMP, VITD, CBCAD #### [facility] [address] [place], [place] [id number] MCH (RBC) [Entitic mass] 29.4 pg Normal 27.0-33.0 [facility] Comment on above: Performed By: #### L IPD, TSH, CMP, VITD, CBCAD #### [facility] [address] [place], [place] [id number] MCHC (RBC) [Mass/Vol] 30.6 g/dL Low 32.0-36.0 [facility] Comment on above: Performed By: #### L IPD, TSH, CMP, VITD, CBCAD #### [facility] [address] [place], [place] [id number] MCV (RBC) [Entitic vol] 96 fL Normal 80-100 [facility] Specialist Comment on above: Performed By: #### L IPD, TSH, CMP, VITD, CBCAD #### [facility] [address] [place], [place] [id number] Monocytes (Bld) [#/Vol] 0.6 10*3/uL Normal 0.2-0.9 [facility] Comment on above: Performed By: #### L IPD, TSH, CMP, VITD, CBCAD #### [facility] [address] [place], [place] [id number] Monocytes/100 WBC (Bld) 10.5 % Normal [facility] Comment on above: Performed By: #### L IPD, TSH, CMP, VITD, CBCAD #### [facility] [address] [place], [place] [id number] Neutrophils (Bld) [#/Vol] 3.6 10*3/uL Normal 1.5-7.8 [facility] Comment on above: Performed By: #### L IPD, TSH, CMP, VITD, CBCAD #### [facility] [address] [place], [place] [id number] Neutrophils/100 WBC (Bld) 58.6 % Normal [facility] Comment on above: Performed By: #### L IPD, TSH, CMP, VITD, CBCAD #### [facility] [address] [place], [place] [id number] Platelet mean volume (Bld) [Entitic vol] 11.40 fL Normal 7.50-12.50 [facility] [employer] Operator Comment on above: Performed By: #### L IPD, TSH, CMP, VITD, CBCAD #### [facility] [address] [place], [place] [id number] Platelets (Bld) [#/Vol] 193 10*3/uL Normal 140-400 [facility] Specialist Comment on above: Performed By: #### L IPD, TSH, CMP, VITD, CBCAD #### [facility] [address] [place], [place] [id number] RBC (Bld) [#/Vol] 4.08 10*6/uL Normal 3.90-5.20 [facility] Specialist Comment on above: Performed By: #### L IPD, TSH, CMP, VITD, CBCAD #### [facility] [address] [place], [place] [id number] RDW-SD 52.8 fL High 37.0-50.0 [facility] Specialist Comment on above: Performed By: #### L IPD, TSH, CMP, VITD, CBCAD #### [facility] [address] [place], [place] [id number] WBC (Bld) [#/Vol] 6.1 10*3/uL Normal 3.8-11.0 [facility] [employer] Comment on above: Performed By: #### L IPD, TSH, CMP, VITD, CBCAD #### [facility] [address] [place], [place] [id number] Comprehensive Metabolic Pane [facility] 07-16-2021 Albumin [Mass/Vol] 4.1 g/dL Normal 3.6-5.1 [facility] [employer] Machine Operator Comment on above: Performed By: #### L IPD, TSH, CMP, VITD, CBCAD #### [facility] [address] [place], [place] [id number] Albumin/Globulin [Mass ratio] 1.5 {ratio} Normal 1.0-2.5 [facility] [employer] Operator Comment on above: Performed By: #### L IPD, TSH, CMP, VITD, CBCAD #### [facility] [address] [place], [place] [id number] ALP [Catalytic activity/Vol] 104 U/L Normal 35-119 [facility] Comment on above: Performed By: #### L IPD, TSH, CMP, VITD, CBCAD #### [facility] [address], [place] [id number] ALT [Catalytic activity/Vol] 7 U/L Normal 6-33 [facility] Comment on above: Result Comment: 02/11 Female reference range changed. Performed By: #### L IPD, TSH, CMP, VITD, CBCAD #### [facility] [address] [place], [place] [id number] Anion gap [Moles/Vol] 18 mmol/L Normal 12-20 [facility] Comment on above: Result Comment: Effe ctive 03/19/2019 reference range changed. Performed By: #### L IPD, TSH, CMP, VITD, CBCAD #### [facility] [address] [place], [place] [id number] AST [Catalytic activity/Vol] 16 U/L Normal 9-34 [facility] Comment on above: Performed By: #### L IPD, TSH, CMP, VITD, CBCAD #### [facility] [address], [place] [id number] Bilirubin [Mass/Vol] 0.92 mg/dL Normal 0.30-1.20 [facility] Comment on above: Performed By: #### L IPD, TSH, CMP, VITD, CBCAD #### [facility] [address] [place], [place] [id number] BUN/CREA 29 Ratio High 6-22 [facility] Comment on above: Performed By: #### L IPD, TSH, CMP, VITD, CBCAD #### [facility] [address] [place], [place] [id number] Calcium [Mass/Vol] 9.5 mg/dL Normal 8.6-10.2 [facility] Comment on above: Performed By: #### L IPD, TSH, CMP, VITD, CBCAD #### [facility] [address] [place], [place] [id number] Chloride [Moles/Vol] 99 mmol/L Normal 98-107 [place] [employer] Comment on above: Performed By: #### L IPD, TSH, CMP, VITD, CBCAD #### [facility] [address], [place] [id number] CO2 [Moles/Vol] 26 mmol/L Normal 20-31 [facility] Comment on above: Performed By: #### L IPD, TSH, CMP, VITD, CBCAD #### [facility] [address], [place] [id number] Creatinine [Mass/Vol] 0.5 mg/dL Low 0.6-1.4 [facility] Comment on above: Performed By: #### L IPD, TSH, CMP, VITD, CBCAD #### [facility] [address] [place], [place] [id number] eGFRAA 135 mL/min/1.73m2 Normal >60 [facility] Comment on above: Performed By: #### L IPD, TSH, CMP, VITD, CBCAD #### [facility] [address], [place] [id number] eGFRNAA 111 mL/min/1.73m2 Normal >60 [facility] Comment on above: Performed By: #### L IPD, TSH, CMP, VITD, CBCAD #### [facility] [address], [place] [id number] Globulin (S) [Mass/Vol] 2.7 g/dL Normal 1.9-3.7 [facility] Comment on above: Performed By: #### L IPD, TSH, CMP, VITD, CBCAD #### [facility] [address] [place], [place] [id number] Glucose [Mass/Vol] 222 mg/dL High 65-99 [facility] Comment on above: Result Comment: For FASTING Glucose --- ADA reference ranges: Normal 65-99 mg/dl Prediabetes 100-125 Diabetes >/= 126 Performed By: #### L IPD, TSH, CMP, VITD, CBCAD #### [facility] [address] [place], [place] [id number] Potassium [Moles/Vol] 4.7 mmol/L Normal 3.5-5.5 [place] [employer] Comment on above: Performed By: #### L IPD, TSH, CMP, VITD, CBCAD #### [facility] [address] [place], [place] [id number] Protein [Mass/Vol] 6.8 g/dL Normal 6.1-8.1 [place] [employer] Comment on above: Performed By: #### L IPD, TSH, CMP, VITD, CBCAD #### [facility] [address] [place], [place] [id number] Sodium [Moles/Vol] 138 mmol/L Normal 135-146 Marcia oliveira [place] [employer] Comment on above: Performed By: #### L IPD, TSH, CMP, VITD, CBCAD #### [facility] [address] [place], [place] [id number] Urea nitrogen [Mass/Vol] 15 mg/dL Normal 7-25 [facility] [employer] Comment on above: Performed By: #### L IPD, TSH, CMP, VITD, CBCAD #### [facility] [address] [place], [place] [id number] Hemoglobin A1Con 07-16-2021 EAG 194.38 Normal [facility] Comment on above: Performed By: #### A 1C #### [facility] [address] [place], [place] [id number] HbA1c (Bld) [Mass fraction] 8.4 % High 4.0-6.0 [facility] [employer] Comment on above: Performed By: #### A 1C #### [facility] [address] [place], [place] [id number] Lipid Panelon 07-16-2021 Cholesterol [Mass/Vol] 172 mg/dL Normal 125-200 [facility] [employer] Comment on above: Result Comment: Low risk < 200mg/dL Borderline risk 201-239 mg/dl High risk > or equal to 240 Performed By: #### L IPD, TSH, CMP, VITD, CBCAD #### [facility] [address] [place], [place] [id number] Cholesterol in HDL [Mass/Vol] 57 mg/dL Normal >40 [facility] [employer] Comment on above: Result Comment: High Cardiovascular Risk HDL <40 mg/dL Low Cardiovascular Risk HDL > or equal to 60 mg/dl Performed By: #### L IPD, TSH, CMP, VITD, CBCAD #### [facility] [address] [place], [place] [id number] Cholesterol in LDL [Mass/Vol] 88 mg/dL Normal [facility] Comment on above: Result Comment: LDL ATP III CLASSIFICATION LDL less than 100 mg/dl Optimal LDL 100-129 mg/dl Near or above optimal LDL 130-159 Borderline high LDL 160-189 High LDL greater than 189 mg/dl Very High Performed By: #### L IPD, TSH, CMP, VITD, CBCAD #### [facility] [address] [place], [place] [id number] Cholesterol in VLDL [Mass/Vol] 27 mg/dL Normal [facility] Comment on above: Performed By: #### L IPD, TSH, CMP, VITD, CBCAD #### [facility] [address] [place], [place] [id number] Cholesterol.total/Cho lesterol in HDL [Mass ratio] 3 {ratio} Normal [facility] Comment on above: Performed By: #### L IPD, TSH, CMP, VITD, CBCAD #### [facility] [address] [place], [place] [id number] Triglyceride [Mass/Vol] 133 mg/dL Normal 30-150 [facility] [employer] Comment on above: Result Comment: TRIG ATPIII CLASSIFICATIONS TRIG less than 150 mg/dl Normal TRIG 150-199 mg/dl Borderline High TRIG 200-500 mg/dl High TRIG greather than 500 mg/dl Very High Performed By: #### L IPD, TSH, CMP, VITD, CBCAD #### [facility] [address] [place], [place] [id number] TSHon 07-16-2021 TSH 1.480 uIU/mL Normal 0.400-4.50 0 [facility] Comment on above: Performed By: #### L IPD, TSH, CMP, VITD, CBCAD #### [facility] [address] [place], [place] [id number] Vitamin B12on 07-16-2021 Cobalamin (Vitamin B12) [Mass/Vol] 1009 pg/mL High 211-946 [facility] Comment on above: Performed By: #### B 12 #### [facility] [address] [place], [place] [id number] Vitamin D 25-OHon 07-16-2021 VIT D 25 OH 56 ng/ml Normal >29 [facility] [employer] Comment on above: Result Comment: Frederic min D Status Deficiency <20 ng/mL Insufficiency 20-29 ng/mL Optimal 30-100 ng/mL Possible Toxicity >=150 ng/mL Performed By: #### L IPD, TSH, CMP, VITD, CBCAD #### [facility] [address] [place], [place] [id number] Prothrombin Time INRon 06-10 INR Coag (PPP) [Relative time] 5.2 {INR} [id number] Other Prothrombin Time INR [employer] Other Prothrombin Time INRon 05-26 INR Coag (PPP) [Relative time] 3.9 {INR} [id number] Other Prothrombin Time INR [employer] Other Prothrombin Time INRon 03-25 INR Coag (PPP) [Relative time] 3.2 {INR} [id number] Other Prothrombin Time INR [employer] Other Prothrombin Time INRon 02-25 INR Coag (PPP) [Relative time] 1.9 {INR} [id number] Other Prothrombin Time INR [employer] Other Prothrombin Time INRon 01-28 INR Coag (PPP) [Relative time] 2.2 {INR} [id number] Other Prothrombin Time INR [employer] Other Prothrombin Time INRon 12-10 INR Coag (PPP) [Relative time] 2.4 {INR} [id number] Other Prothrombin Time INR [employer] Other Office Visit (Neuro-Movement -PD)on 11-01-2017 Office Visit (Artml-Ssbwgqtn-EC) History of Present IllnessALTON BARKER is here [...] asleep and no acting out of dreams. [place] Sleepiness Scale is 14. She reports concern [...] MG Oral Tablet Vitals Vital Signs Recorded: [id number] 01:33PMHeart [id number], SAOHsajxhkxq88, ZZZPedzvs842 lb 1 ozBMI Wpatlwsoan22.59BSA Calculated2.27 Physical ExamConstitutional: General appearance: no acute [...] disease; KISHOR = N; Verified Transmission to [facility] [id number]; Last Updated By: SystemEmbarkly; 10/26/2017 2:12:16 PM Provider ImpressionsSlexy is a [...] and treatment options. 25 minutes was spent ohxb-ey-ffgy in the visit. Patient Discussion/SummaryI am recommending starting Sinemet 0.5 tablets three times daily for 1 week with meals and then increase the first dose to 1 tablet. Follow up in 3 months. Signatures Electronically signed by : Tyree Perez MD; Nov 01 2017 8:36AM EST (Author) [facility] Vital Signs Date Time Vital Sign Value Performing Clinician Génesis fish 01-20-2023 14:52-0500 Body height 167.6 cm Gloria Perez APRN.INSPECTOR TYPE Work Phone: [facility] 01-20-2023 14:52-0500 SaO2% (BldA) [Mass fraction] 98 % Gloria Perez HEAT TREATING BLUER.INSPECTOR TYPE Work Phone: [facility] 07-08-2022 14:54-0400 Body height 167.6 cm Gloria Perez HEAT TREATING BLUER.INSPECTOR TYPE Work Phone: [facility] 07-08-2022 14:54-0400 Body weight 85.14 kg Gloria Perez HEAT TREATING BLUER.INSPECTOR TYPE Work Phone: [facility] 07-08-2022 14:54-0400 SaO2% (BldA) [Mass fraction] 98 % Gloria Perez HEAT TREATING BLUER.INSPECTOR TYPE Work Phone: [facility] 05-20-2022 09:30-0500 Diastolic blood pressure 60 mm[Hg] DO Honey Vaschak Work Phone: [facility] 05-20-2022 09:30-0500 Heart rate 89 /min DO Honey Vaschak Work Phone: [facility] 05-20-2022 09:30-0500 Systolic blood pressure 106 mm[Hg] DO Honey Vaschak Work Phone: [facility] 11-25-2021 16:00-0400 Body temperature 97.4 [degF] DO Honey Vaschak Work Phone: [facility] 11-25-2021 16:00-0400 Diastolic blood pressure 61 mm[Hg] DO Honey Vaschak Work Phone: [facility] 11-25-2021 16:00-0400 Heart rate 98 /min DO Honey Vaschak Work Phone: [facility] 11-25-2021 16:00-0400 Respiratory rate 16 /min DO Honey Vaschak Work Phone: [facility] 11-25-2021 16:00-0400 SaO2% (BldA) [Mass fraction] 98 % DO Honey Vaschak Work Phone: [facility] 11-25-2021 16:00-0400 Systolic blood pressure 96 mm[Hg] DO Honey Vaschak Work Phone: [facility] 11-24-2021 12:10-0400 Body height 167.64 cm DO Honey Vaschak Work Phone: [facility] 11-22-2021 06:00-0400 Body weight 92.8 kg DO Honey Vaschak Work Phone: [facility] 11-13-2021 21:44-0400 Body temperature 98.1 [degF] DO Honey Vaschak Work Phone: [facility] 11-13-2021 21:44-0400 Diastolic blood pressure 71 mm[Hg] DO Honey Vaschak Work Phone: [facility] 11-13-2021 21:44-0400 Heart rate 92 /min DO Honey Vaschak Work Phone: [facility] 11-13-2021 21:44-0400 Respiratory rate 18 /min DO Honey Vaschak Work Phone: [facility] 11-13-2021 21:44-0400 SaO2% (BldA) [Mass fraction] 98 % DO Honey Vaschak Work Phone: [facility] 11-13-2021 21:44-0400 Systolic blood pressure 112 mm[Hg] DO Honey Vaschak Work Phone: [facility] 11-12-2021 16:00-0400 Body temperature 97.6 [degF] DO Honey Vaschak Work Phone: [facility] 11-12-2021 16:00-0400 Diastolic blood pressure 63 mm[Hg] DO Honey Vaschak Work Phone: [facility] 11-12-2021 16:00-0400 Heart rate 96 /min DO Honey Danilochak Work Phone: [facility] 11-12-2021 16:00-0400 Respiratory rate 16 /min DO Honey Mukulk Work Phone: [facility] 11-12-2021 16:00-0400 SaO2% (BldA) [Mass fraction] 98 % DO Honey Danilochak Work Phone: [facility] 11-12-2021 16:00-0400 Systolic blood pressure 98 mm[Hg] DO Honey Vaschak Work Phone: [facility] 11-12-2021 10:30-0400 Body height 167.64 cm DO Honey Mukulk Work Phone: [facility] 11-11-2021 15:00-0400 Body weight 92.98 kg DO Honey Mukulk Work Phone: [facility] 11-11-2021 08:00-0400 Body temperature 97.9 [degF] DO Honey Mukulk Work Phone: [facility] 11-11-2021 08:00-0400 Diastolic blood pressure 67 mm[Hg] DO Honey Mukulk Work Phone: [facility] 11-11-2021 08:00-0400 Heart rate 87 /min DO Honey Mukulk Work Phone: [facility] 11-11-2021 08:00-0400 SaO2% (BldA) [Mass fraction] 95 % DO Honey Danilochak Work Phone: [facility] 11-11-2021 08:00-0400 Systolic blood pressure 103 mm[Hg] DO Honey Vaschak Work Phone: [facility] 11-11-2021 05:58-0400 Respiratory rate 17 /min DO Honey Vaschak Work Phone: [facility] 11-11-2021 04:10-0400 Body weight 93.3 kg DO Honey Vaschak Work Phone: [facility] 11-05-2021 16:33-0400 Body height 167.64 cm DO Honey Vaschak Work Phone: [facility] 10-19-2021 23:25-0400 Diastolic blood pressure 78 mm[Hg] DO Honey Vaschak Work Phone: [facility] 10-19-2021 23:25-0400 Heart rate 83 /min DO Honey Vaschak Work Phone: [facility] 10-19-2021 23:25-0400 Respiratory rate 18 /min DO Honey Vaschak Work Phone: [facility] 10-19-2021 23:25-0400 SaO2% (BldA) [Mass fraction] 100 % DO Honey Vaschak Work Phone: [facility] 10-19-2021 23:25-0400 Systolic blood pressure 164 mm[Hg] DO Honey Vaschak Work Phone: [facility] 10-19-2021 19:51-0400 Body temperature 97.6 [degF] DO Honey Vaschak Work Phone: [facility] 10-19-2021 19:48-0400 Body height 167.64 cm DO Honey Vaschak Work Phone: [facility] 10-19-2021 19:48-0400 Body weight 98.6 kg DO Honey Vaschak Work Phone: [facility] 10-01-2021 11:58-0400 Body height 167.6 cm Gloria Perez APRN.INSPECTOR TYPE Work Phone: [facility] 10-01-2021 11:58-0400 Body weight 101.06 kg Gloria Perez APRN.INSPECTOR TYPE Work Phone: [facility] 10-01-2021 11:58-0400 SaO2% (BldA) [Mass fraction] 98 % Gloria Perez APRN.INSPECTOR TYPE Work Phone: [facility] 09-28-2021 02:06-0400 Heart rate 86 /min DO Honey Mukulk Work Phone: [facility] 09-28-2021 00:01-0400 Body height 167.64 cm DO Honey Mukulk Work Phone: [facility] 09-28-2021 00:01-0400 Body mass index (BMI) [Ratio] 35.5 kg/m2 DO Honey Danilochak Work Phone: [facility] 09-28-2021 00:01-0400 Body weight 99.79 kg DO Honey Mukulk Work Phone: [facility] 09-27-2021 23:57-0400 Body temperature 99.6 [degF] DO Honey Mukulk Work Phone: [facility] 09-27-2021 23:57-0400 Diastolic blood pressure 59 mm[Hg] DO Honey Mukulk Work Phone: [facility] 09-27-2021 23:57-0400 Respiratory rate 16 /min DO Honey Mukulk Work Phone: [facility] 09-27-2021 23:57-0400 SaO2% (BldA) [Mass fraction] 97 % DO Honey Mukulk Work Phone: [facility] 09-27-2021 23:57-0400 Systolic blood pressure 125 mm[Hg] DO Honey Danilochak Work Phone: [facility] 07-31-2020 16:20-0400 Body height 167.64 cm Honey Mukulk Work Phone: [facility] 07-31-2020 16:20-0400 Body mass index (BMI) [Ratio] 41.6 kg/m2 Honey Rabago Work Phone: [facility] 07-31-2020 16:20-0400 Body weight 117.02 kg Honey Rabago Work Phone: [facility] 07-31-2020 16:19-0400 Body temperature 98.1 [degF] Honey Rabago Work Phone: [facility] 07-31-2020 16:19-0400 Diastolic blood pressure 70 mm[Hg] Honey Rabago Work Phone: [facility] 07-31-2020 16:19-0400 Heart rate 90 /min Honey Rabago Work Phone: [facility] 07-31-2020 16:19-0400 Respiratory rate 18 /min Honey Rabago Work Phone: [facility] 07-31-2020 16:19-0400 SaO2% (BldA) [Mass fraction] 98 % Honey Rabago Work Phone: [facility] 07-31-2020 16:19-0400 Systolic blood pressure 155 mm[Hg] Honey Rabago Work Phone: [facility] Encounters Encounter Date Encounter Type Care Provider Facility Start: 03-28-2023 End: 03-29-2023 ambulatory MAC VILLASENOR Not Available Start: 03-28-2023 End: 03-28-2023 ambulatory HONEY RABAGO Not Available Start: 02-11-2023 Telephone encounter Gloria blankenship APRN.INSPECTOR TYPE Work Phone: Neurology Comment on above: Medication Problem Start: 01-25-2023 End: 01-25-2023 ambulatory URBANO BENNETT Not Available Start: 01-20-2023 End: 01-20-2023 ambulatory HONEY RABAGO Facility:[facility] Start: 01-20-2023 End: 01-20-2023 Patient encounter procedure Gloria Perez APRN.INSPECTOR TYPE Work Phone: Neurology Comment on above: Parkinson's disease without dyskinesia, with fluctuating manifestations (Primary Dx); Depression with anxiety Start: 07-14-2022 End: 07-14-[address] HONEY RABAGO Facility:[facility] Start: 07-12-2022 End: 07-12-[address] HONEY RABAGO Facility:[facility] Start: 07-08-2022 End: 07-08-2022 ambulatory HONEY RABAGO Facility:[facility] Start: 07-08-2022 End: 07-08-2022 Patient encounter procedure Gloria Perez APRN.INSPECTOR TYPE Work Phone: Neurology Comment on above: Parkinson's disease (HCC) (Primary Dx); Depression with anxiety Start: 06-01-2022 End: 06-01-[address] HONEY RABAGO Facility:[facility] Start: 05-31-2022 ambulatory Gloria Perez APRN.INSPECTOR TYPE Work Phone: Neurology Comment on above: UPDATE: ALTON CRAWFORD : [birth year] Start: 05-20-2022 End: 05-20-2022 ambulatory Honey Rabago Facility:[facility] Start: 05-20-2022 End: 05-20-2022 ambulatory DO Honey Rabago Work Phone: [facility] Work Phone: Start: 05-20-2022 End: 05-20-2022 Discharged Recurring DO Honey Danilokoki Work Phone: [facility]-Infusion Therapy - O/P Work Phone: Start: 04-13-2022 Refill Gloria Perez APRN.INSPECTOR TYPE Work Phone: Neurology Comment on above: Refill Request Start: 02-15-2022 Telephone encounter Gloria blankenship APRN.INSPECTOR TYPE Work Phone: Neurology Comment on above: Patient Update Start: 02-02-2022 End: 02-03-[address] HONEY RABAGO Facility:[facility] Start: 01-08-2022 End: 01-08-2022 ambulatory Anu Alva Other [email or web address] Other Start: 01-08-2022 Telephone encounter Anu Alva [facility] Start: 12-30-2021 End: 12-30-2021 ambulatory Honey Rabago Facility:[facility] Start: 12-30-2021 End: 12-30-2021 Patient encounter procedure DO Méndez Danilokoki Work Phone: [facility]-Lab [facility] Start: 12-29-2021 End: 12-30-[address] HONEY RABAGO Facility:[facility] Start: 12-21-2021 End: 12-21-[address] HONEY RABAGO Facility:[facility] Start: 12-15-2021 (Repeat [facility]) Anu Alva [facility] Start: 12-15-2021 End: 12-15-2021 ambulatory Anu Alva Other [email or web address] Other Start: 12-14-2021 End: 12-14-[address] HONEY RABAGO Facility:[facility] Start: 12-01-2021 (Repeat [facility]) Anu Alva [facility] Start: 12-01-2021 End: 12-01-2021 ambulatory Anu Alva Other [email or web address] Other Start: 11-30-2021 End: 11-30-[address] HONEY RABAGO Facility:[facility] Start: 11-11-2021 End: 11-25-2021 Evaluation and management of inpatient Alcides Moya Facility:[facility] Start: 11-11-2021 End: 11-25-2021 Evaluation and management of inpatient DO Méndez Danilokoki Work Phone: [facility] Start: 11-05-2021 End: 11-05-2021 ambulatory Oswaldo Almonte Other [email or web address] Other Start: 11-05-2021 Patient encounter procedure Oswaldo Almonte [facility] Start: 11-05-2021 Telephone encounter Gloria blankenship APRN.INSPECTOR TYPE Work Phone: Neurology Comment on above: Appointment; Patient Update (Called to schedule follow up. Patient in hospital.) Start: 11-04-2021 End: 11-11-2021 ambulatory Honey Rabago Facility:[facility] Start: 11-04-2021 End: 11-11-2021 Evaluation and management of inpatient DO Honey Rabago Work Phone: [facility] Start: 10-26-2021 ambulatory Gloria Perez APRN.INSPECTOR TYPE Work Phone: Neurology Comment on above: ALTON BARKER UPDATE MESSAGE #3 Start: 10-22-2021 Registered Recurring DO Honey Rabago Work Phone: [facility] Start: 10-22-2021 ([facility] R A/c) [facility] Re peat A/C Anu Fitt [facility] Start: 10-22-2021 End: 10-23-2021 ambulatory Honey Rabago [facility] [employer] Other Start: 10-19-2021 End: 10-20-2021 Emergency department patient visit Holger Junaid Estrada Facility:[facility] Start: 10-19-2021 End: 10-20-2021 Emergency department patient visit DO Honey Rabago Work Phone: [facility]-Emergency Room Start: 10-01-2021 End: 10-01-2021 Patient encounter procedure Gloria Perez APRN.INSPECTOR TYPE Work Phone: Neurology Comment on above: Recurrent episodes o f unresponsiveness (Primary Dx); Parkinson's disease (HCC); Depression with anxiety; Fatigue, unspecified type; Excessive daytime sleepiness Start: 09-29-2021 ([facility] R A/c) [facility] Re peat A/C Anu Fitt [facility] Start: 09-29-2021 End: 09-29-2021 ambulatory Anu Fitt Other [email or web address] Other Start: 09-28-2021 End: 09-28-2021 Emergency department patient visit Sumanth Meyer Lavelle Facility:[facility] Start: 09-27-2021 End: 09-28-2021 Emergency department patient visit DO Honey Rabago Work Phone: [facility] Start: 09-23-2021 End: 09-23-2021 ambulatory Anu Fitt Other [email or web address] Other Start: 09-23-2021 Telephone encounter Anu Fitt [facility] Start: 08-26-2021 ([facility] R A/c) [facility] Anu Fitt [facility] Start: 08-26-2021 End: 08-26-2021 ambulatory Anu Fitt Other [email or web address] Other Start: 08-05-2021 ([facility] R A/c) [facility] Re peat A/C Anu Fitt [facility] Start: 08-05-2021 End: 08-05-2021 ambulatory Anu Fitt Other [email or web address] Other Start: 07-20-2021 ([facility] R A/c) [facility] Re peat A/C Anu Fitt [facility] Start: 07-20-2021 End: 07-20-2021 ambulatory Anu Fitt Other [email or web address] Other Start: 06-10-2021 ([facility] R A/c) [facility] Anu Fitt [facility] Start: 06-10-2021 End: 06-10-2021 ambulatory Anu Fitt Other [email or web address] Other Start: 05-26-2021 ([facility] R A/c) [facility] Re peat A/C Anu Fitt [facility] Start: 05-26-2021 End: 05-26-2021 ambulatory Anu Fitt Other [email or web address] Other Start: 05-19-2021 End: 05-19-2021 ambulatory Anu Fitt Other [email or web address] Other Start: 05-19-2021 Telephone encounter Anu Fitt [facility] Start: 04-21-2021 End: 04-21-2021 ambulatory Anu Fitt Other [email or web address] Other Start: 04-21-2021 Telephone encounter Anu Fitt [facility] Start: 04-15-2021 End: 04-15-2021 ambulatory Anu Fitt Other [email or web address] Other Start: 04-15-2021 Telephone encounter Anu Fitt [facility] Start: 03-25-2021 ([facility] R A/c) [facility] Re peat A/C [facility] Start: 03-25-2021 End: 03-25-2021 ambulatory Anu Fitt Other [email or web address] Other Start: 02-25-2021 ([facility] R A/c) [facility] Anu Fitt [facility] Start: 02-25-2021 End: 02-25-2021 ambulatory Anu Fitt Other [id number] Other Start: 01-28-2021 ([facility] R A/c) [facility] Anu Fitt [facility] Start: 01-28-2021 End: 01-28-2021 ambulatory Anu Fitt Other [id number] Other Start: 01-21-2021 End: 01-21-2021 ambulatory Anu Alva Other [id number] Other Start: 01-21-2021 [facility] Start: 01-07-2021 End: 01-07-2021 ambulatory Anu Alva Other [id number] Other Start: 01-07-2021 Telephone encounter [facility] Start: 12-10-2020 ([facility] R A/c) [facility] Re peat A/C Anu Alva [facility] Start: 07-31-2020 End: 07-31-2020 Emergency department patient visit Honey Rabago Work Phone: -Emergency Room Start: 06-18-2020 Registered Recurring Honey guerrero Work Phone: -[facility] Procedures Date Procedure Procedure Detail Performing Clinician Start: 11-05-2021 MR lumbar spine wo con DO Honey Hima Work Phone: Start: 11-04-2021 CT of head without contrast DO Honey Rabago Work Phone: Start: 11-04-2021 Computed tomography of thoracic spine without contrast DO Honey Rabago Work Phone: Start: 11-04-2021 CT cervical spine wi thout contrast DO Honey Rabago Work Phone: Start: 11-04-2021 CT of lumbar spine w ithout contrast DO Honey Hima Work Phone: Start: 10-19-2021 CT of head without contrast DO Honey Rabago Work Phone: Start: 10-19-2021 X-ray of lumbar spin e, two or three views DO Honey Rabago Work Phone: Start: 09-29-2021 Adult depression scr eening assessment Gloria Perez APRN.INSPECTOR TYPE Work Phone: Start: 09-28-2021 Plain chest X-ray DO Ro lara Rabago Work Phone: Start: 07-31-2020 Radiography of cervi james spine Honey Rabago Work Phone: SARS-CoV-2, Influenz a & RSV (PCR) DO Honey Rabago Work Phone: Urine culture DO Honey cuellar Work Phone: Urine culture DO Honey cuellar Work Phone: Urine culture DO Honey cuellar Work Phone: Plan of Treatment Date Care Activity Detail Author Start: 12-04-2023 DIABETES SCREEN DIABETES SCREEN [facility] Start: 12-04-2023 Diabetes Screening Diabetes Screenin g [facility] Start: 11-12-2022 Covid-19 Vaccine () Covid-19 Vaccine () [facility] Start: 09-29-2022 Adult depression screening assessment DEPRESSION SCREENING [facility] Start: 03-14-2022 ADVANCE DIRECTIVE DISCUSSION ADVANCE DIRECTIVE DISCUSSION [facility] Start: 03-14-2022 DEPRESSION ASSESSMENT DEPRESSION ASS ESSMENT [facility] Start: 12-11-2021 [facility] Work Phone: Start: 12-10-2021 [facility] Work Phone: Start: 12-09-2021 [facility] Work Phone: Start: 12-08-2021 [facility] Work Phone: Start: 12-07-2021 [facility] Work Phone: Start: 12-06-2021 [facility] Work Phone: Start: 12-05-2021 [facility] Work Phone: Start: 12-04-2021 [facility] Work Phone: Start: 12-03-2021 [facility] Work Phone: Start: 12-02-2021 [facility] Work Phone: Start: 12-01-2021 [facility] Work Phone: Start: 11-30-2021 [facility] Work Phone: Start: 11-29-2021 [facility] Work Phone: Start: 11-28-2021 [facility] Work Phone: Start: 11-27-2021 [facility] Work Phone: Start: 11-26-2021 [facility] Work Phone: Start: 11-25-2021 [facility] Work Phone: Start: 11-24-2021 End: 11-24-2021 [facility] Start: 11-23-2021 [facility] Start: 11-22-2021 [facility] Work Phone: Start: 11-21-2021 [facility] Work Phone: Start: 11-20-2021 [facility] Work Phone: Start: 11-19-2021 [facility] Work Phone: Start: 11-18-2021 [facility] Work Phone: Start: 11-17-2021 [facility] Work Phone: Start: 11-16-2021 [facility] Work Phone: Start: 11-15-2021 [facility] Work Phone: Start: 11-14-2021 [facility] Work Phone: Start: 11-13-2021 [facility] Work Phone: Start: 11-12-2021 Influenza vaccination INFLUENZA (#1) [facility] Start: 11-11-2021 Administration of prophylactic treatment [facility] Start: 11-11-2021 Hospital admission [facility] Start: 11-11-2021 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 active directory administrator [facility] Start: 11-11-2021 [facility] Work Phone: Start: 11-11-2021 Evaluation and management of inpatient Back pain [facility] Start: 11-09-2021 [facility] Start: 11-05-2021 MR lumbar spine wo con MR lumbar spi ne wo con [facility] Start: 11-05-2021 Administration of prophylactic treatment [facility] Start: 11-05-2021 Administration of prophylactic treatment [facility] Start: 11-05-2021 Consultation [facility] Start: 11-04-2021 Referral to psychiatrist [facility] Start: 11-04-2021 Hospital admission [facility] Start: 11-04-2021 End: 11-11-2021 Evaluation and management of inpatient Back pain [facility] Start: 11-04-2021 CT of head without contrast CT head[facility]brain [facility] Start: 11-04-2021 Computed tomography of thoracic spine without contrast CT thoracic spine wo [facility] Start: 11-04-2021 CT cervical spine without contrast CT cervical spine wo [facility] Start: 11-04-2021 CT of lumbar spine without contrast CT lumbar spine wo [facility] Start: 10-22-2021 Registered Recurring Registered Recu rring [facility] Start: 05-20-2021 COVID-19 VACCINE (4 - Booster for Moderna series) COVID-19 VACCINE (4 - Booster for Moderna series) [facility] Start: 03-17-2021 COVID-19 VACCINE (4 - Booster for Moderna series) COVID-19 VACCINE (4 - Booster for Moderna series) [facility] Start: 03-14-2021 ADVANCE DIRECTIVE DISCUSSION ADVANCE DIRECTIVE DISCUSSION [facility] Start: 03-14-2021 DEPRESSION ASSESSMENT DEPRESSION ASS ESSMENT [facility] Start: 07-23-2009 Urine microalbumin profile DTaP,Tdap,Td Vaccine (1 - Tdap) [facility] Start: 2006 BONE DENSITY BONE DENSITY [facility] Start: 2006 Bone Density Screening Bone Density Screening [facility] Start: 2006 PNEUMOCOCCAL: 65+ (1 - PCV) PNEUMOCOCCAL: 65+ (1 - PCV) [facility] Start: 2001 RSV Vaccine (1 - 1-d ose 60+ series) RSV Vaccine (1 - 1-dose 60+ series) [facility] Start: 07-14-1991 SHINGRIX VACCINE (1 of 2) SHINGRIX VACCINE (1 of 2) [facility] Start: 1960 Urine microalbumin profile DTAP,TDAP,TD (1 - Tdap) [facility] End: 10-04-2022 EPIL EEG ROUTINE EPIL EEG ROUTINE NEUROLOGY Routine Recurrent episodes of unresponsiveness 1 Occurrences starting 10/04/2021 until 10/04/2022 [facility] Work Phone: Comment on above: 1 Occurrences starti ng 10/04/2021 until 10/04/2022 Patient Education [facility] Work Phone: Patient referral [facility] Immunizations Immunization Date Immunization Notes Care Provider Benedict champagne 02-05-2019 influenza, high dose seasonal, preservative-free Anu Juan Migueljulius Other [id number] Other Payers Date Payer Category Payer Medicare [id number] 2021 Unknown ANTHEM BLUE CROS S AND BLUE SHIELD ANTHEM MEDIBLUE O [id number] 2021-Present [phone] [address] [place] [address] O [id number] 2021 Unknown ANTHEM BLUE CROS S AND BLUE SHIELD ANTHEM MEDIBLUE HMO [id number] 2021-Present [phone] [address] [place] [address] HMO [id number] 2016 Self-pay [id number] 1959 Medicare [id number] 1959 Unknown [id number] 1940 Unknown [id number] 2.16.840.1.149559.3.579.2.5 93 1941 Unknown [id number] 2.16.840.1.488887.3.579.2.5 93 1941 Unknown [id number] 2.16.840.1.278793.3.579.2.5 93 1941 Unknown [id number] 2.16.840.1.592998.3.579.2.5 93 1941 Unknown [id number] 2.16.840.1.950928.3.579.2.5 93 1941 Unknown [id number] 2.16.840.1.788957.3.579.2.5 93 1941 Unknown [id number] 2.16.840.1.990257.3.579.2.5 93 1941 Unknown [id number] 2.16.840.1.155969.3.579.2.5 93 1941 Unknown [id number] 2.16.840.1.480923.3.579.2.1 259 1941 Unknown [id number] 2.16.840.1.886206.3.579.2.1 259 1941 Unknown [id number] 2.16.840.1.780463.3.579.2.1 259 Private Health Insurance [id number] Unknown [id number] 2.16.840.1.781126.3.579.2.5 31 Unknown [id number] 2.16.840.1.000226.3.579.2.5 31 Unknown [id number] 2.16.840.1.025527.3.579.2.5 31 Unknown [id number] 2.16.840.1.124583.3.579.2.5 31 Unknown [id number] 2.16.840.1.546967.3.579.2.5 31 Unknown [id number] 2.16.840.1.084422.3.579.2.5 31 Unknown [id number] 2.16.840.1.782041.3.579.2.5 31 Social History Date Type Detail Facility Start: 07-31-2020 End: 02-12-2022 Tobacco smoking status NHIS Ex-smoker (finding) [facility] Start: 1940 Sex Assigned At Female [facility] Start: 09-29-2021 End: 01-20-2023 Sex Assigned At [facility] Start: 03-02-2018 End: 02-12-2022 Tobacco use and exposure Smokeless tobacco non-user [facility] Start: 09-21-2021 End: 02-12-2022 Exposure to SARS-CoV-2 (event) Not sure [facility] History of tobacco use Current smoker [facility] Start: 11-12-2021 End: 11-12-2021 Tobacco smoking status ILIS Never smoked tobacco (finding) [facility] Start: 09-29-2021 End: 01-20-2023 History of Social function [facility] Adult Depression Screening Assessment 4 [facility] Start: 11-26-2019 Gender identity Identifies as female gender (finding) [facility] Start: 11-26-2019 Sexual orientation Heterosexual (francine [place]) [facility] Medical Equipment Procedure Code Equipment Code Equipment Origin al Text Equipment Identifier Dates USE DIRECTED BEFORE MEALS AND BEDTIME Start: 08-28-2018 End: 09-29-2021 Comment on above: USE DIRECTED BEFO RE MEALS AND BEDTIME Goals Date Patient Goal Desired Activity /State Functional Status Date Assessment Result Facility 11-25-2021 Functional status Patient is Pro gressing Toward Baseline [facility] Work Phone: 11-11-2021 Functional status Patient is Pro gressing Toward Baseline [facility] Work Phone: 11-04-2021 Functional status Patient at Baseline [facility] Work Phone: Mental Status Date Assessment Result Facility 11-25-2021 Cognitive function Cognitive Sta tus Patient at Baseline [facility] Work Phone: 11-11-2021 Cognitive function Cognitive Sta tus Patient Not at Baseline [facility] Work Phone: 11-04-2021 Cognitive function Cognitive Sta tus Patient at Baseline [facility] Work Phone: Clinical Notes 12-10-2020 to 02-11-2023 Addendum Note - Anu Hillman RN - 02/11/2023 2:59 PM ESTTelephone Encounter - Anu Hillman RN - 02/11/2023 2:57 PM ESTTelephone Encounter - Mary Anne Beatty - 02/11/2023 1:52 PM EST Note Date & Type Note Facility 02-11-2023 Note HNO ID: [id number] Author: Nupur Main PA-C Service: ? Author Type: Physician Stranner Type: Progress Notes Filed: 02/11/2023 4:48 PM Note Text: Reviewed chart - OK to refill; e-scripted to pharmacy as requested... [facility] 02-11-2023 Miscellaneous Notes Addended by: ANU HILLMAN on: 02/11/2023 02:59 PM Modules accepted: Orders Order pended to preferred pharmacy Last OV 01/20/23 Next OV 06/23/23 E- [id number] [place] [id number] - [address] [phone] [id number] carbidopa-levodopa (SINEMET 25-100) 25-100 mg per tablet Patient son called in today in regards to medication and wanting to switch pharmacy, they were told the best way to do this would be to request a new prescription. They would like it sent to [facility] Thank you! documented in this encounter [facility] 01-20-2023 Note HNO ID: [id number] Author: Gloria Perez APRN.INSPECTOR TYPE Service: ? Author Type: Nurse Practitioner Type: Progress Notes Filed: 01/24/2023 12:36 PM Note Text: [facility] - FOLLOW UP EVALUATION Honey Rabago DO [address] [facility] [address] Dear Honey Rabago DO: I had the [...] Use vaginally one (more content not included)... [facility] 01-20-2023 Instructions Gloria Perez APRN.INSPECTOR TYPE - 01/20/2023 3:46 PM EST It was a pleasure to see you today. We addressed the following diagnoses: Parkinson's disease without dyskinesia, with fluctuating manifestations (primary encounter diagnosis) Depression with anxiety My recommendations are as follows: 01/20/2023 Visit: Parkinson's disease: Continue current medication schedule but discuss with the supervisor patching if you can take the Sinemet on [...] or you can send a message through [employer]. You can also now schedule and select appointments through [employer]. Gloria Perez APRN.ELDON documented in this encounter [facility] 01-20-2023 History of Presen t illness Narrative [facility] - FOLLOW UP EVALUATION Honey Rabago DO [address] [place] [address] Dear Honey Rabago DO: I had the [...] 01/18/2023: Pt takes 2 tabs daily per [facility] MEDICATION, NON-DATABASE 750 mg two times a [...] she is going to discuss with the supervisor patching, see if she can take her Parkinson's [...] current medication schedule but discuss with the supervisor patching if you can take the Sinemet on [...] Mirtazapine 7.5mg 1 Level of service : 74105 (40-54 min). Time spent 47 min on the day of service, which included preparing to see the patient, [id number]-[id number] patient care, completing clinical documentation, obtaining and/or reviewing separately obtained history, performing a medically appropriate examination, counseling and educating the patient/family/caregiver, and ordering medications, tests, or procedures. Gloria Perez APRN.ELDON documented in this encounter [facility] 07-08-2022 Note HNO ID: [id number] Author: Gloria Perez APRN.ELDON Service: ? Author Type: Nurse Practitioner Type: Progress Notes Filed: 07/11/2022 5:23 PM Note Text: [facility] - FOLLOW UP EVALUATION Honey Rabago DO, DO [address] [facility] [address] Dear Honey Rabago DO, DO: I had [...] She likes the staff. The director and corporate events director have to chip into cook since the [employer] cook and this has been good from [...] Rash Rosuvastatin Calcium (more content not included)... [facility] 07-08-2022 Instructions Gloria Perez APRN.INSPECTOR TYPE - 07/08/2022 3:56 PM EDT It was [...] or you can send a message through [employer]. You can also now schedule and select appointments through [employer]. Gloria Perez APRN.ELDON documented in this encounter [facility] 07-08-2022 History of Presen t illness Narrative [facility] - FOLLOW UP EVALUATION Honey Rabago DO, DO [address] [facility] [address] Dear Honey Rabago DO DO: I had [...] She likes the staff. 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 Time spent 47 min on the day of service, which included preparing to see the patient, cloz-uv-yvtt patient care, completing clinical documentation, obtaining and/or reviewing separately obtained history, performing a medically appropriate examination, counseling and educating the patient/family/caregiver, and ordering medications, tests, or procedures. Gloria Perez APRN.ELDON documented in this encounter [facility] 04-13-2022 Miscellaneous Notes Order pended Last [...] patient. Belen Tim documented in this encounter [facility] 02-15-2022 Miscellaneous Notes I tried callingGina, the hospital social worker in her primary care provider's office. I left a message requesting a call back. AYO Chicas documented in this encounter [facility] 12-15-2021 Evaluation note Encounter Date Diagnosis [...] Please call patient's son Jose David at [phone] with results. Spoke to Jose David and discussed above. Spoke with RN Bety ([phone] ) and given above instructions. Patient may get home testing for INRs set-up, will inform clinic if home testing begins. Home Health Order: Draw PT/INR on 01-04-22 Seen by Justin Nicolas PharmD [id number] Other 09-20-2022 Evaluation note* Encounter Date Diagnosis [...] discharged on 11/25 from inpatient rehab at [facility] with above plan and therapeutic INRs. Follow up in 2 weeks. Please call patient's son Jose David at [phone] with results. Spoke to Jose David and discussed above. Spoke with HH RN Bety ([phone]) and given above instructions. Patient may get home testing for INRs set-up, will inform clinic if home testing begins. Home Health Order: Draw PT/INR on 12-14-21 Seen by Justin Nicolas PharmD [id number] Other 09-14-2022 Discharge summary Author Alcides Moya [facility] November 25, 2021 12:57pm Note Date/Time November 25, 2021 8:50am [facility] [address] [place] [address] Discharge Summary Signed Patient: Alton Barker MR#: [id number] : 1940 Acct:[id number] Age/Sex: 81 / F Adm Date: 2 Loc: Room: [address] [place] [address]: Alcides Moya MD Copies to: [...] Plan Discharge Plan Patient Disposition: Home Health [facility] Activity: Ambulate as Tolerated Diet: Regular Additional [...] PT/INR (dx:Z79.01) on Tuesday11/30/21, with results to [facility], who will continue to manage your Coumadin dosing, as they were prior to your hospitalization. -Coumadin dosing: Take 2mg every day EXCEPT Tuesday and . Take 1mg on Tuesday and . Your Home Health agency is [facility] ( ). They will usually [...] Sat, Sun 0.5 tab daily on Thurs Discontinued metformin 500 MG tablet 1,000 mg [...] signed by Alcides Moya MD> 11/25/21 1257 [facility] Work Phone: 1(958) 569-746609-12-2022 Progress note Author Alcides Moya [facility] November 23, 2021 3:01pm Note Date/Time November 23, 2021 1:36pm [facility] [address] [place] [address] Physiatry(Rehab) Progress Note Signed Patient: Alton Barker MR#: [id number] : 1940 Acct:[id number] Age/Sex: 81 / F Adm Date: 2 Loc: Room: [address] [place] [address] Type: ADM IN Attending Dr: Alcides Moya MD Copies to: ~ <Elham Mendoza APRN - Last Filed: 11/23/21 14:05> Date of Service: 11/23/2021 Subjective <Elham Mendoza APRN - Last Filed: 11/23/21 14:05> Subjective Narrative: Ms. 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 I reminded that she can take her [...] mg 11/11/21 14:29 Bisacodyl 10 Mg Supp.Rect AR 11/11/22 14:28 DAILY PRN Constipation Carbidopa/Levodopa 1.5 [...] 14:29 Docusate Enema 283 Mg/5 Ml Enema AR 11/11/22 14:28 DAILY PRN Constipation Lactulose 30 [...] Allied health note review, nursing note review, consultant in ergonomics and safety note review, discussion with nursing and case management, and more than 50% of my time was spent on counseling and coordination of care, time spent 18 minutes Patient was personally seen by me, Dr. Moya, on the day of encounter, reviewed the history and the relevant portions of the chart, including current orders, allied health and consultant in ergonomics and safety notes, labs/imaging and performed day elements of [...] <Electronically signed by Alcides Moya MD> 11/23/21 [address] [facility] Work Phone: 1(303) 140-691109-12-2022 Progress note Author Alcides Moya [facility] November 23, 2021 2:39pm Note Date/Time November 20, 2021 1:19pm [facility] [address] [place] [address] Physiatry(Rehab) Progress Note Signed Patient: Alton Barker MR#: [id number] : 1940 Acct:[id number] Age/Sex: 81 / F Adm Date: 2 Loc: Room: 2S8921-5 Type: ADM IN Attending Dr: Alcides Moya MD Copies to: ~ <Elham Mendoza APRN - Last Filed: 11/20/21 13:21> Date of Service: 11/20/2021 Subjective <Elham Mendoza APRN - Last Filed: 11/20/21 13:21> Subjective Narrative: Ms. Barker is a 81 year old female With history of Parkinson's disease, followed at the [facility], admitted to the rehabilitation unit with [...] mg 11/11/21 14:29 Bisacodyl 10 Mg Supp.Rect AR 11/11/22 14:28 DAILY PRN Constipation Carbidopa/Levodopa 1.5 [...] 14:29 Docusate Enema 283 Mg/5 Ml Enema AR 11/11/22 14:28 DAILY PRN Constipation Lactulose 30 [...] 09:37 Venlafaxine Er 150 Mg Cap.Er.24h PO 09/01/23 08:59 150 mg QAM KAYLIN Administration Vitamin [...] 11/20/21 17:01 ONCE ONE Assessment/Plan <Elham Mendoza, HEAT TREATING BLUER - Last Filed: 11/20/21 13:21> Assessment/Plan (1) [...] Allied health note review, nursing note review, consultant in ergonomics and safety note review, discussion with nursing and case management, and more than 50% of my time was spent on counseling and coordination of care, time spent 16 minutes Patient was personally seen by me, Dr. Moya, on the day of encounter, reviewed the history and the relevant portions of the chart, including current orders, allied health and consultant in ergonomics and safety notes, labs/imaging and performed day elements of exam and I formulated the plan of care and facilitated the medical decision making and confirmed the nurse practitioner note, as above Documented By: Elham Mendoza APRN 11/20/21 1 310 Signed By: <Electronically signed by HEIDI Mendoza> 11/20/21 1321 <Electronically signed by Alcides Moya MD> 11/23/21 15[address] [facility] Work Phone: 1(365) 845-561609-08-2022 Progress note Author Rosa Maria Odell [facility] November 19, 2021 5:37pm Note Date/Time November 19, 2021 4:57pm [facility] [address] [place] [address] Hospitalist Progress Note Signed Patient: Alton Bakrer MR#: [id number] : 1940 Acct:[id number] Age/Sex: 81 / F Adm Date: 2 Loc: Room: [address] [place] [address] Type: ADM IN Attending Dr: Alcides Moya [...] mg 11/11/21 14:29 Bisacodyl 10 Mg Supp.Rect AR 11/11/22 14:28 DAILY PRN Constipation Carbidopa/Levodopa 1.5 [...] 14:29 Docusate Enema 283 Mg/5 Ml Enema AR 11/11/22 14:28 DAILY PRN Constipation Lactulose 30 [...] by Rosa Maria Odell MD> 11/19/21 1737 [facility] Work Phone: 1(289) 917-694209-07-2022 Progress note Author Alcides Moya [facility] November 18, 2021 12:40pm Note Date/Time November 17, 2021 10:56am [facility] [address] [place] [address] Physiatry(Rehab) Progress Note Signed Patient: Alton Barker MR#: [id number] : 1940 Acct:[id number] Age/Sex: 81 / F Adm Date: 2 Loc: Room: [address] [place] [address] Type: ADM IN Attending Dr: Alcides Moya [...] mg 11/11/21 14:29 Bisacodyl 10 Mg Supp.Rect AR 11/11/22 14:28 DAILY PRN Constipation Carbidopa/Levodopa 1.5 [...] 14:29 Docusate Enema 283 Mg/5 Ml Enema AR 11/11/22 14:28 DAILY PRN Constipation Lactulose 30 [...] Allied health note review, nursing note review, consultant in ergonomics and safety note review, discussion with nursing and case management, and more than 50% of my time was spent on counseling and coordination of care, time spent 23 minutes Patient was personally seen by me, Dr. Moya, on the day of encounter, reviewed the history and the relevant portions of the chart, including current orders, allied health and consultant in ergonomics and safety notes, labs/imaging and performed day elements of [...] signed by Alcides Moya MD> 11/18/21 1240 [facility] Work Phone: 1(443) 826-971709-03-2022 Progress note Author Alcides Moya [facility] November 14, 2021 8:45am Note Date/Time November 13, 2021 3:25pm [facility] [address] [place] [address] Physiatry(Rehab) Progress Note Signed Patient: Alton Barker MR#: [id number] : 1940 Acct:[id number] Age/Sex: 81 / F Adm Date: 2 Loc: Room: [address] [place] [address] Type: ADM IN Attending Dr: Alcides Moya MD Copies to: ~ Date of Service: 11/13/2021 Subjective Subjective Narrative: Ms. Barker is a 81 year old female With history of Parkinson's disease, followed at the [facility], admitted to the rehabilitation unit with [...] mg 11/11/21 14:29 Bisacodyl 10 Mg Supp.Rect AR 11/11/22 14:28 DAILY PRN Constipation Carbidopa/Levodopa 1.5 [...] 14:29 Docusate Enema 283 Mg/5 Ml Enema AR 11/11/22 14:28 DAILY PRN Constipation Lactulose 30 [...] Acute (10) Chronic anticoagulation: Code(s): Z79.01 - buttermaker (current) use of anticoagulants Status: Acute (11) Urinary tract infection: Code(s): N39.0 - Urinary tract infection, site not specified Status: Acute (12) Back pain: Code(s): M54.9 - Dorsalgia, unspecified Status: Acute Plan 81-year-old female with history of Parkinson's disease, follows at the [facility], admitted to the rehabilitation unit with [...] and self-care. Discharge planning:Insurance denial overturned via [id number]. 2 weeks approved. Plan for discharge home November 25 Plan: I completed a substantive portion of this encounter, the medical decision makingportion of this note in its entirety, including Allied health note review, nursing note review, consultant in ergonomics and safety note review, discussion with nursing and case management, and more than 50% of my time was spent on counseling and coordination of care, time spent 26minutes Patient was personally seen by me, Dr. Moya, on the day of encounter, reviewed the history and the relevant portions of the chart, including current orders, allied health and consultant in ergonomics and safety notes, labs/imaging and performed day elements of exam and I formulated the plan of care and facilitated the medical decision making and confirmed the nurse practitioner note, as above Documented By: Alcides Moya MD 11/13/21 1525 Signed By: <Electronically signed by Alcides Moya MD> 11/14/21 0845 [facility] Work Phone: 1(645) 600-320009-01-2022 Consult note Author Justice De Oliveira [facility] November 12, 2021 5:09pm Note Date/Time November 12, 2021 3:21pm [facility] [address] [place] [address] Hospitalist Consult Note Signed Patient: Alton Barker MR#: [id number] : 1940 Acct:[id number] Age/Sex: 81 / F Adm Date: 2 Loc: Room: [address] [place] [address] Type: ADM IN Attending Dr: Alcides Moya MD Copies to: MD Justice Pate DO Lynn A Stackhouse, FIGUEROA-BC Honey Rabago DO~ HPI DATE OF CONSULTATION: [...] incontinence. Patient with underlying Parkinson's follows with [facility] neurology and movement disorder clinicians there. [...] negative unless noted below or in HPI PMFSH Attestation Statement: The following information was validated [...] mg-vit E 90 mg-zinc 40 mg-copper 1 zc-etwezh-rrxeky capsule (PreserVision AREDS-2) 1 tab PO BID [...] mg 11/11/21 14:29 Bisacodyl 10 Mg Supp.Rect AR 11/11/22 14:28 DAILY PRN Constipation Carbidopa/Levodopa 1.5 [...] 14:29 Docusate Enema 283 Mg/5 Ml Enema AR 11/11/22 14:28 DAILY PRN Constipation Lactulose 30 gm 11/11/21 14:29 Lactulose 20 Gm/30 Ml Udc PO 11/11/22 14:28 DAILY PRN Constipation Levothyroxine Sodium 75 mcg 11/12/21 06:30 11/12/21 06:25 Levothyroxine 75 Mcg Tablet PO 11/12/22 06:29 Not Given DAILY@0630 KAYLIN Lidocaine 1 patch 11/12/21 09:00 11/12/21 08:45 [...] % (Auto) 45.9, Lymph % (Auto) 39.7, Kerr % (Auto) 10.1, Eos % (Auto) 3.8, Baso % (Auto) 0.5, Neut # (Auto) 2.3, Lymph # (Auto) 2.0, Kerr # (Auto) 0.5, Eos # (Auto) 0.2, [...] signed by Justice De Oliveira DO> 11/12/21 170 [facility] Work Phone: 1(828) 827-635408-31-2022 History and physical note Author Alcides Moya [facility] November 11, 2021 6:55pm Note Date/Time November 11, 2021 1: 26pm [facility] [address] [place] [address] Physiatry (Rehab) H&P Signed Patient: Alton Barker MR#: [id number] : 1940 Acct:[id number] Age/Sex: 81 / F Adm Date: 2 Loc: Room: [address] [place] [address] Type: ADM IN Attending Dr: Alcides Moya MD Copies to: MD Honey Pate DO~ Date of Service: 11/11/2021 HPI The patient was seen and examined on: 11/11/21 Etiologic Diagnosis/Impairment Group: 08.9 History of Present Illness: Ms. Barker is a 81 year old female With history of Parkinson's disease, followed at the [facility], admitted to the rehabilitation unit with [...] Lives at home with her son and lhwtdoqk-fh-qzj. Chronic conditions are otherwise stable with current [...] mg-vit E 90 mg-zinc 40 mg-copper 1 zw-xlouil-rvnzyl capsule (PreserVision AREDS-2) 1 tab PO BID [...] 14 days Expected Discharge Destination: Home Rehabilitation [facility]: 10.20 Primary Diagnosis: L1 compression fracture h/o [...] 24 hour daily monitoring and intervention from Acid Tester as well as other consulting physicians including internal medicine as well as 24 hour daily compounding and finishing supervisor nursing - for medical safe / optimal [...] Acute (10) Chronic anticoagulation: Code(s): Z79.01 - buttermaker (current) use of anticoagulants Status: Acute (11) Urinary tract infection: Code(s): N39.0 - Urinary tract infection, site not specified Status: Acute (12) Back pain: Code(s): M54.9 - Dorsalgia, unspecified Status: Acute Plan 81-year-old female with history of Parkinson's disease, follows at the [facility], admitted to the rehabilitation unit with [...] and self-care. Discharge planning:Insurance denial overturned via [id number]. Plan for discharge home in 1 to 2 weeks. Plan: I completed a substantive portion of this encounter, the medical decision making portion of this note in its entirety, including Allied health note review, nursing note review, consultant in ergonomics and safety note review, discussion with nursing and case management, and more than 50% of my time was spent on counseling and coordination of care, time spent 65 minutes Patient was personally seen by me, Dr. Moya, on the day of encounter, reviewed the history and the relevant portions of the chart, including current orders, allied health and consultant in ergonomics and safety notes, labs/imaging and performed day elements of exam and I formulated the plan of care and facilitated the medical decision making and confirmed the nurse practitioner note, as above Documented By: Alcides Moya MD 11/11/211853 Signed By: <Electronically signed by Alcides Moya MD> 11/11/211854 [facility] Work Phone: 1(340) 852-128408-25-2022 Miscellaneous Notes* Telephone Encounter - Gloria Perez [...] to in-health rehab. Currently she is at [facility] [place] [facility] [address]. 2. * Telephone Encounter - Lyly Pedersen - 11/05/2021 1:04 PM EDT ----- Message from Gloria Perez APRN.INSPECTOR TYPE sent at 11/03/2021 8:01 AM EDT ----- [...] know. Thank you, Gloria documented in this encounterTri[facility] History and physical note Author Enrrique Mota [facility] November 04, 2021 8:55pm Note Date/Time November 04, 2021 6: 26pm [facility] [address] [place] [address] Hospitalist H&P Signed Patient: Alton Barker MR#: [id number] : 1940 Acct:[id number] Age/Sex: 81 / F Adm Date: 2 Loc: Room: 0M6258-4 Type: ADM IN Attending Dr: Enrrique Mota [...] mg-vit E 90 mg-zinc 40 mg-copper 1 zk-tugkzw-ukyaer capsule (PreserVision AREDS-2) 1 tab PO BID [...] % (Auto) 20.3 % (.) 11/04/21 16:40 Kerr % (Auto) 9.7 % (.) 11/04/21 16:40 Eos % (Auto) 1.7 % (.) 11/04/21 16:40 Baso % (Auto) 0.6 % (.) 11/04/21 16:40 Neut # (Auto) 5.3 x10E3/uL (1.8-7.7) 11/04/21 16:40 Lymph # (Auto) 1.6 x10E3/uL (1.00-4.8) 11/04/21 16:40 Kerr # (Auto) 0.8 x10E3/uL (0.0-0.8) 11/04/21 16:40 [...] <Electronically signed by Enrrique Mota MD> 11/04/212054 [facility] Work Phone: 1(349) 169-585308-11-2022 Evaluation note* Encounter Date Diagnosis Assessment Notes [...] 2 weeks. Seen by Justin Nicolas PharmD [email or web address] Other 07-21-2022 Instructions* Patient Instructions* Gloria Perez [...] or you can send a message through [employer]. You can also now schedule and select appointments through [employer]. Gloria Perez APRN.ELDON documented in this encounterTri[facility]07-21-2022 History of Present illness Narrative* Gloria Perez APRN.CNP - 10/01/2021 12:13 PM EDT [facility] - FOLLOW UP EVALUATION Honey Rabago, DO, DO [address] [facility] [[email or web address]] [address] [facility] [address] I had the pleasure of seeing Ms. [...] loss is noticeable but LTM is good. Dickson Cognitive Assessment (MoCA): 29 (02/03/2021 10:50 AM) [...] is now living with her son and cikrtxmv-fr-hla. She has not been taking her medication [...] 1.5 1.5 Effexor Level of service : 56519 (40-54 min). Time spent 49 (12:14pm-1:03pm) min on the day of service, which included preparing to see the patient, rjii-bq-yeiw patient care, completing clinical documentation, obtaining and/or reviewing separately obtained history, performing a medically appropriate examination, counseling and educating the patient/family/caregiver and ordering medications, tests, or procedures. Gloria Perez APRN.ELDON documented in this encounterTrihealth [facility]07-19-2022 Evaluation note* Encounter Date Diagnosis Assessment [...] 3 weeks. Seen by Juliana Ozuna RN REES46 Other 06-28-2022 NoteHISTORY: Bone density screening. COMPARISON: [...] and signed by Delgado Moya on 09/08/[address] [place], [place] 5770606-15-2022 Evaluation note* Encounter Date Diagnosis Assessment Notes [...] significant other. Seen by Juliana Ozuna RN [email or web address] Other 05-25-2022 Evaluation note* Encounter Date Diagnosis [...] take as instructed above. Notify [facility] Antico[facility] [phone] option 5 for the following: -Call immediately [...] person tells you to adjust your warfarin. REES46 Other 05-09-2022 Evaluation note* Encounter Date Diagnosis [...] significant other. Seen by Justin Nicolas PharmD [email or web address] Other 03-30-2022 Evaluation note* Encounter Date Diagnosis [...] family. Calendar provided. Seen by Anu Alva [facility]/Anuradha Case [employer]OTARY FURNACE TENDER [facility] [employer] Other 03-15-2022 Evaluation note* Encounter Date Diagnosis [...] she voiced understanding. Seen by Anu Alva [facility] REES46 Other 01-12-2022 Evaluation note* Encounter Date Diagnosis [...] 3 weeks. Seen by Justin Nicolas PharmD [email or web address] Other 12-15-2021 Evaluation note* Encounter Date Diagnosis [...] 4 weeks. Seen by Juliana Ozuna RN [email or web address] Other 11-17-2021 Evaluation note* Encounter Date Diagnosis [...] 4 weeks. Seen by Juliana Ozuna RN [email or web address] Other 09-29-2021 Evaluation note* Encounter Date Diagnosis [...] 4 weeks. Seen by Justin Nicolas PharmD [email or web address] Other Consult note Author Jairo Benson [facility] November 05, 2021 3:10pm Note Date/Time November 05, 2021 3: 10pm [facility] [address] [place] [address] Psychiatry Consult Note Signed Patient: Alton Barker MR#: [id number] : 1940 Acct:[id number] Age/Sex: 81 / F Adm Date: 2 Loc: Room: [address] [place] [address] Type : ADM INOo Attending Dr: Enrrique [...] mg-vit E 90 mg-zinc 40 mg-copper 1 wk-egradw-mdwmbb capsule (PreserVision AREDS-2) 1 tab PO BID [...] Cloudy A Urine pH 5.5 Ur Specific [place] 1.029 Urine Protein 30 H Urine Glucose [...] Acute Documented By: Jairo Benson MD 11/05/21 7223 Signed By: <Electronically signed by Jairo Benson MD> 11/05/21 1510 [facility] Work Phone: Consult note Author Oswaldo Almonte [facility] November 06, 2021 11:33am Note Date/Time November 06, 2021 11 :33am [facility] [address] [place] [address] Neurosurgery Consult Note Signed Patient: Alton Barker MR#: [id number] : 1940 Acct:[id number] Age/Sex: 81 / F Adm Date: 2 Loc: Room: [address] [place] [address] Type: ADM INOo Attending Dr: Enrrique Mota [...] mg-vit E 90 mg-zinc 40 mg-copper 1 pw-ksiekv-zixjan capsule (PreserVision AREDS-2) 1 tab PO BID [...] Cloudy A, Urine pH 5.5, Ur Specific [place] 1.029, Urine Protein 30 H, Urine Glucose [...] % (Auto) 67.7, Lymph % (Auto) 20.3, Kerr % (Auto) 9.7, Eos % (Auto) 1.7, Baso % (Auto) 0.6, Neut # (Auto) 5.3, Lymph # (Auto) 1.6, Kerr # (Auto) 0.8, Eos # (Auto) 0.1, [...] signed by MD Oswaldo Almonte> 11/06/21 1133 [facility] Work Phone: Discharge summary Author Gaye Claire [facility] November 11, 2021 5:21pm Note Date/Time November 10, 2021 11 :33am [facility] [address] [place] [address] Discharge Summary Signed Patient: Alton Barker MR#: [id number] : 1940 Acct:[id number] Age/Sex: 81 / F Adm Date: 2 Loc: Room: [address] [place] [address]: Gaye Claire MD Copies to: Tonya Suh, [facility]- MD Honey Collado,DO~ Providers Date of Admission: [...] movement disorderspecialist Gloria Lal nurse practitioner at [facility] routinely. She was continued on her [...] Discharge Plan Discharge Plan Patient Disposition: Rehab [facility] Activity: No Activity Restriction Diet: Regular Additional [...] signed by Gaye Claire MD> 11/11/21 1721 [facility] Work Phone: Evaluation noteNo assessment information available [facility] HospitalEvaluation noteNo InformationNort [employer] Other Evaluation note* Diagnosis Recurrent episodes of unresponsiveness- Primary Parkinson's disease (HCC) Paralysis agitans Depression with anxiety Dysthymic disorder Fatigue, unspecified type Excessive daytime sleepiness documented in this encounter [facility]* Diagnosis Onset Date Resolution Status [...] cute Parkinsons disease [facility] Work Phone: Evaluation note* Diagnosis Onset [...] cute Parkinsons disease acute [facility] Work Phone: Evaluation note* Diagnosis Parkinson's disease (HCC) Paralysis agitans documented in this encounter [facility]* Diagnosis Parkinson's disease (HCC)- Primary Paralysis agitans Depression with anxiety Dysthymic disorder documented in this encounter [facility]* Diagnosis Parkinson's disease without dyskinesia, with fluctuating manifestations- Primary Depression with anxiety Dysthymic disorder documented in this encounter [facility]* Diagnosis Parkinson's disease Paralysis agitans documented in this encounter [facility] general Narrative - Reported* Type Description Date Medical History diabetes mellitus Medical History coronary artery disease Medical History Hypothyroidism Medical History Esophageal reflux Medical History depression Medical History essential tremor Surgical History tonsillectomy Surgical History cholecystectomy Surgical History appendectomy Surgical History hemorrhoidectomy Surgical History colonoscopy Surgical History heart catheterization Hospitalization History see above [facility] AddMyBest Other History general N[facility]ative - [facility] AddMyBest Other Progress note Author Enrrique Mota [facility] November 06, 2021 7:31am Note Date/Time November 05, 2021 3: 01pm [facility] [address] [place] [address] Hospitalist Progress Note Signed Patient: Alton Barker MR#: [id number] : 1940 Acct:[id number] Age/Sex: 81 / F Adm Date: 2 Loc: Room: [address] [place] [address] Type: ADM INOo Attending Dr: Enrrique Mota MD Copies to: ~ Date of Service: 11/05/2021 Subjective Subjective Narrative: Patient seen and examined, sitting up in chair at time of exam. She is pleasant, mildly confused. She is oriented to self, knows she is at [facility]. Initially states year is 1920, then corrects [...] where she lives with her son and dmzvqihz-eg-sxz Impaired mobility and ADLs Parkinson's disease ? Patient follows with neurology, Dr. Lal, and movement disorder specialist,Gloria Lal, ELDON, at [facility] ? Continue Sinemet ? PT/OT eval's [...] dose 5. Dyslipidemia?atorvastatin 6. Hypertension?metoprolol Documented By: Faustina Barr, FOLLOW UP REP-C 11/05/21 1 340 Signed By: <Electronically signed by KAYODE Barr> 11/05/21 1507 <Electronically signed by Enrrique Mota MD> 11/06/21 0731 [facility] Work Phone: Progress note Author Enrrique Mota [facility] November 07, 2021 4:52pm Note Date/Time November 06, 2021 11 :01am [facility] [address] [place] [address] Hospitalist Progress Note Signed Patient: Alton Barker MR#: [id number] : 1940 Acct:[id number] Age/Sex: 81 / F Adm Date: 2 Loc: Room: [address] [place] [address] Type: ADM INOo Attending Dr: Enrrique Mota MD Copies to: ~ Date of Service: 11/06/2021 Subjective Subjective Narrative: Patient is seen and examined. She is sitting up in bed at time of exam. When asked how she is feeling, she states not well, I am confused . She has howeveroriented to self, knows she is at [facility], and was able to tell me events surrounding her admission. She showed me a paper with senior living facilities listed on it, and indicated that [...] 11/06/21 07:30 11/06/21 08:09 Omeprazole 20 Mg Capsule. PO 11/06/22 07:29 [...] where she lives with her son and ragujnnn-pk-qms Impaired mobility and ADLs Parkinson's disease ? Patient follows with neurology, Dr. Lal, and movement disorder specialist,Gloria Lal, INSPECTOR TYPE, at [facility] ? Continue Sinemet ? PT/OT recommending [...] <Electronically signed by Enrrique Mota MD> 11/07/21 1652 [facility] Work Phone: Progress note Author Enrrique Mota [facility] November 07, 2021 4:47pm Note Date/Time November 07, 2021 11 :18am [facility] [address] [place] [address] Hospitalist Progress Note Signed Patient: Alton Barker MR#: [id number] : 1940 Acct:[id number] Age/Sex: 81 / F Adm Date: 2 Loc: Room: [address] [place] [address] Type: ADM INOo Attending Dr: Enrrique Mota [...] where she lives with her son and gjwwijgg-pf-oal Impaired mobility and ADLs Parkinson's disease ? Patient follows with neurology, Dr. Lal, and movement disorder specialist,Gloria Lal, ELDON, at [facility] ? Continue Sinemet ? PT/OT recommending [...] <Electronically signed by Enrrique Mota MD> 11/07/21 1643 [facility] Work Phone: Progress note Author Enrrique Mota [facility] November 08, 2021 5:13pm Note Date/Time November 08, 2021 10 :47am [facility] [address] [place] [address] Hospitalist Progress Note Signed Patient: Alton Barker MR#: [id number] : 1940 Acct:[id number] Age/Sex: 81 / F Adm Date: 2 Loc: 3T Room: [address] [place] [address] Type: ADM INOo Attending Dr: Enrrique Mota [...] Tablet PO 11/05/22 21:59 7.5 mg QHS KAYILN Administration Omeprazole 20 mg 11/06/21 07:30 11/08/21 [...] where she lives with her son and knlgvzic-cn-dpa Impaired mobility and ADLs Parkinson's disease ? Patient follows with neurology, Dr. Lal, and movement disorder specialist,Gloria Lal, INSPECTOR TYPE, at [facility] ? Continue Sinemet ? PT/OT recommending [...] <Electronically signed by Enrrique Mota MD> 11/08/21 9460 [facility] Work Phone: Progress note Author Gaye Claire [facility] November 10, 2021 4:37pm Note Date/Time November 09, 2021 1: 11pm [facility] [address] [place] [address] Hospitalist Progress Note Signed Patient: Alton Barker MR#: [id number] : 1940 Acct:[id number] Age/Sex: 81 / F Adm Date: 2 Loc: Room: 6A6571-5 Type: ADM INOo Attending Dr: Gaye Claire [...] Lal, and movement disorder specialist, Gloria Lal INSPECTOR TYPE at [facility] ?Continue Sinemet UTI Ecoli ?ceftriaxone initiated 11/06, [...] <Electronically signed by Gaye Claire MD> 11/10/21 5466 [facility] Work Phone: Progress note Author Gaye Claire [facility] November 11, 2021 5:21pm Note Date/Time November 10, 2021 5: 36pm [facility] [address] [place] [address] Hospitalist Progress Note Signed Patient: Alton Barker MR#: [id number] : 1940 Acct:[id number] Age/Sex: 81 / F Adm Date: 2 Loc: Room: [address] [place] [address] Type: DIS INOo Attending Dr: Gaye Claire [...] movement disorder specialist, Gloria Lal CNP at [facility] ?Continue Sinemet UTI Ecoli ?ceftriaxone initiated 11/06, [...] signed by Gaye Claire MD> 11/11/21 1721 [facility] Work Phone: Reason for referral (narrative)* Outpatient Procedure (Routine) - Pending Review Specialty Diagnoses / Procedures Referred By Contact Referred To Contact [facility] Diagnoses Recurrent episodes of unresponsiveness Procedures EPIL EEG ROUTINE ELECTROENCEPHALOGRAM REC COMA/SLEEP ONLY Gloria Perez, MICHELLE [address] [place] [address] [facility] [address] [place] [address] Referral ID Status Reason Start Date Expiration Date Visits Requested Visits Authorized [id number] Pending Review Auto-Generat ed Referral 10/04/2021 10/04/2022 1 1 [facility] Summary Purpose Family History No Family [...] (HCC) Procedures PROVIDER ORDERED FOLLOW UP OFFICE/OUTPATIENT [facility] 60-74 MINUTES Gloria Perez, HEAT TREATING BLUER.INSPECTOR TYPE [address] [place] [address] Referral ID Status Reason Start Date Expiration Date Visits Requested Visits Authorized [id number] Pending Review PCP Requested Referral 3 07/08/2023 1 1 Additional Source Comments INFORMATION SOURCE (unrecogn ized section and content) DATE CREATED AUTHOR 11/02/2017 [employer] DATE CREATED AUTHOR AUTHOR'S ORGANIZ ATION 09/09/2021 [facility] dical Specialist DATE CREATED AUTHOR AUTHOR'S ORGANIZ ATION 06/01/2022 [facility] DATE CREATED AUTHOR AUTHOR'S ORGANIZ ATION 07/23/2022 [facility] DATE CREATED AUTHOR AUTHOR'S ORGANIZ ATION 02/14/2023 [facility] DATE CREATED AUTHOR AUTHOR'S ORGANIZ ATION 04/02/2023 [facility] EPIC Goals (unrecognized section and [...] Disease Specialty Diagnoses / Procedures Referred By Daija t Referred To Contact Diagnoses Parkinson's disease Procedures PROVIDER ORDERED FOLLOW UP OFFICE/OUTPATIENT [facility] 60-74 MINUTES Gloria Perez, HEIDI.INSPECTOR TYPE [address] [place] [address] Referral ID Status Reason Start Date Expiration Date Visits Requested Visits Authorized [id number] Pending Review PCP Requested Referral 3 07/08/2023 1 1 Reason Comments Medication Problem Source Comments (unrecognize d section and content) In the event this informatio n is protected by the Federal Confidentiality of Alcohol and Drug Abuse Patient Records regulations: The Federal rules restrict any use of the information to criminally investigate or prosecute any alcohol or drug abuse patient.[facility] the event this information is protected by the Federal Confidentiality of Alcohol and Drug Abuse Patient Records regulations: The Federal rules restrict any use of the information to criminally investigate or prosecute any alcohol or drug abuse patient.[facility] the event this information is protected by the Federal Confidentiality of Alcohol and Drug Abuse Patient Records regulations: The Federal rules restrict any use of the information to criminally investigate or prosecute any alcohol or drug abuse patient.[facility] the event this information is protected by the Federal Confidentiality of Alcohol and Drug Abuse Patient Records regulations: The Federal rules restrict any use of the information to criminally investigate or prosecute any alcohol or drug abuse patient.[facility] HospitalIn the event this information is protected by the Federal Confidentiality of Alcohol and Drug Abuse Patient Records regulations: The Federal rules restrict any use of the information to criminally investigate or prosecute any alcohol or drug abuse patient.[facility] HospitalIn the event this information is protected by the Federal Confidentiality of Alcohol and Drug Abuse Patient Records regulations: The Federal rules restrict any use of the information to criminally investigate or prosecute any alcohol or drug abuse patient.[facility] HospitalIn the event this information is protected by the Federal Confidentiality of Alcohol and Drug Abuse Patient Records regulations: The Federal rules restrict any use of the information to criminally investigate or prosecute any alcohol or drug abuse patient.[facility] HospitalIn the event this information is protected by the Federal Confidentiality of Alcohol and Drug Abuse Patient Records regulations: The Federal rules restrict any use of the information to criminally investigate or prosecute any alcohol or drug abuse patient.[facility] HospitalIn the event this information is protected by the Federal Confidentiality of Alcohol and Drug Abuse Patient Records regulations: The Federal rules restrict any use of the information to criminally investigate or prosecute any alcohol or drug abuse patient.[facility] Care Teams (unrecognized sec tion and [...] Moya MD Admit Provider, Attending Provider A ctanette Mehta , KORTNEY Other Provider Active Sasha Hannah , KORTNEY Other Provider Active Nadia Dutton , KORTNEY Other Provider Active Anuradha Garrett , KORTNEY Other Provider Active Karen Smith , KORTNEY Other Provider Active Erika Ayon RN Other Provider Active Familia Villatoro MD [...] MD Other Provider Active Faustina Barr , FOLLOW UP REP-C Other Provider Active Valente Lauren MD Other Provider Active Kareem Elizondo MD Other Provider Active Italia Colbert MD Other Provider Active Ronan Davidson MD Other Provider Active Shantel Nayak , DO Other Provider Active Kaylie Mooney MD Other Provider Active Michael Del Rio , DO Other Provider Active Sony Canela , DO Other Provider Active Amanda Jaimes HEAT TREATING BLUER Other Provider Active Lázaro Pratt , DO Other Provider Active Corona Weathers MD Other Provider Active Lee Ann Terry , KORTNEY Other Provider Active Team Status: Inactive Member Role Status Dates Honey Rabago , DO Primary Care Provider Active Marvin Peter , DO Emergency Provider Active Enrrique Mota MD Admit Provider Active Jairo Benson MD Other Provider Active Oswlado Almonte MD Other Provider Active Gaye Claire MD Attending Provider Active Toll Testboard Worker Relationship Specialty Start Date End Date Honey Rabago, DO [address] [place] [address] PCP - General 02/16/05 Toll Testboard Worker Relationship Specialty Start Date End Date Honey Rabago, DO [address] [place] [address] PCP - General 02/16/05 Toll Testboard Worker Relationship Specialty Start Date End Date Honey Rabago, DO [address] [place] [address] PCP - General 02/16/05 Team Status: Active Member Role Status Dates Honey CarrascoDO koki Primary Care Provider Active Alcides Moya MD Admit Provider, Attending Provider A ctive Maggy Mehta , KORTNEY Other Provider Active Sasha Hannah , KORTNEY Other Provider Active Nadia Dutton , RN Other Provider Active Anuradha Garrett , RN Other Provider Active Karen Smith , KORTNEY Other Provider Active Erika Ayon , RN [...] MD Other Provider Active Faustina Barr , FOLLOW UP REP-C Other Provider Active Valente Lauren MD Other Provider Active Kareem Elizondo MD Other Provider Active Italia Colbert MD Other Provider Active Ronan Davidson MD Other Provider Active Shantel Nael , DO Other Provider Active Kaylie Mooney [...] Primary Care Provider, Attending Paula mock Active Toll Testboard Worker Relationship Specialty Start Date End Date MukulHoney chavarria, DO [address] [place] [address] PCP - General 02/16/05 Toll Testboard Worker Relationship Specialty Start Date End Date MukulHoney chavarria, DO [address] [place] [address] PCP - General 02/16/05 Toll Testboard Worker Relationship Specialty Start Date End Date DaniloHoney telles, DO [address] [place] [address] PCP - General 02/16/05 Toll Testboard Worker Relationship Specialty Start Date End Date MukulHoney chavarria, DO [address] [place] [address] PCP - General 02/16/05 Toll Testboard Worker Relationship Specialty Start Date End Date HimaHoney DO [address] [place] [address] PCP - General 02/16/05 Toll Testboard Worker Relationship Specialty Start Date End Date MukulHoney chavarria DO [address] [place] [address] PCP - General 02/16/05 FOR RECORDS PERTAINING [...] BE BASED ON THE PRIMARY CLINICAL RECORDS. [facility] provides no warranty or guarantee of the accuracy or completeness of information in this document.
--- NOTE | 2023-04-13 12:24 | CT_ITS ---
[address] [address] Patient Name: ALTON SALMERON MRN: [id number] date: 1940 Sex: F Assigned Patient Location: CT Current Patient Location: CT Accession/Order Number: [id number] Exam Date: 04/13/2023 12:45 Report Date: 04/13/2023 13:52 At the request of: NON-STAFF PHYSICIAN Procedure: CT chest wo con EXAMINATION: CT chest wo con HISTORY: lung nodule R91.1 COMPARISON: No relevant comparison available. TECHNIQUE: Multi-planar CT images were created with IV contrast. Axial, Coronal, and Sagittal images. Dose reduction techniques were achieved by using automated exposure control and/or adjustment of mA and/or kV according to patient size and/or use of iterative reconstruction technique. FINDINGS: LUNGS: Calcified tracheobronchial tree mild subpleural honeycombing and peripheral intralobular septal thickening. Few scattered punctate pulmonary nodules PLEURA: No mass, effusion, or pneumothorax. VASCULATURE: No abnormality. ROSCOE: No mass or adenopathy. MEDIASTINUM: No mass or adenopathy. CARDIAC: No enlargement or pericardial effusion. Heavy coronary atherosclerosis AORTA: No aneurysm or dissection. CHEST WALL: No mass or axillary adenopathy. BONES: No bone lesion or fracture. LIMITED ABDOMEN: No suspicious findings. Limited images of the upper abdomen. OTHER: Negative. CT/CT chest wo con IMPRESSION: Mild pulmonary fibrosis Few scattered calcified and noncalcified punctate pulmonary nodules, nonspecific Electronically authenticated by: [employer] Date: 04/13/2023 13:52
== END 2023-04-13 12:19 | disposition home or self-care (01) ==
LOC: CT 12:18
PROVIDERS: PCP Internal Medicine
DX: R91.1 Solitary pulmonary nodule (principal); J84.10 Pulmonary fibrosis, unspecified
CPT/HCPCS: 71250

== ENCOUNTER 2023-04-27 12:50 | Outpatient (OUT) | payer MEDICARE, SELFPAY ==
[2023-04-27 13:19] LABS: Hemoglobin 11.7 g/dL (12.0-16.0)
--- NOTE | 2023-04-27 14:20 | RT_ITS ---
[facility] Test Date: 2023-04-27 Pat Name: ALTON SALMERON Department: Room: - Gender: Female Contact Lens Lathe Operator: Tomas Ott RRT : 1940 Requested By: [id number] Order Number: [id number] Reading MD: Albin Sherman Interpretive Statements Pulmonary function testing was completed according to ATS criteria. Findings were considered accurate and reproducible, with exception of DLCO which did not meet ATS standards. No bronchodilator was administered due to normal FEV1. Spirometry: -FEV1/FVC: Normal @ 85% -FEV1: Normal @ 89% -FVC: Mildly reduced @ 77% Lung volumes by plethysmography: -RV: Reduced @ 68% -TLC: Mildly reduced @ 72% Diffusion capacity: -DLCO: Moderately-severe reduction @ 50% when corrected for Hb 11.7g/dL Flow-volume loop: -Mild restrictive pattern Impressions: -Spirometry suggests mild restriction which is confirmed with a reduction in the TLC. Moderately-severe reduction in DLCO. This pattern can be seen in, but not restricted to, cardiopulmonary vascular disorders and interstitial lung disease. Clinical correlation required. Electronically Signed On 04-27-2023 14:42:45 EST by Albin Sherman
== END 2023-04-27 12:51 | disposition home or self-care (01) ==
LOC: CARD 12:50
PROVIDERS: PCP Internal Medicine
DX: J84.10 Pulmonary fibrosis, unspecified (principal)
CPT/HCPCS: 36415; 85018; 94010; 94726; 94729

== ENCOUNTER 2023-05-30 02:56 | Outpatient (REF) | payer MEDICARE, SELFPAY ==
--- OUTSIDE RECORDS SUMMARY | 2023-05-30 03:01 | XMS_ITS | CCD ---
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 Name Role Phone Honey Rabago Primary Care Provider Honey Rabago Attending Provider Anu Alva Unavailable Honey Rabago DO Primary Care Provider Honey Rabago DO Primary Care Provider Oswaldo Almonte Unavailable DO Honey Rabago Primary Care Provider [phone] DO Sumanth Lowe Emergency Provider DO Holger Dorado Emergency Provider DO Honey Rabago Attending Provider DO Marvin Peter Emergency Provider MD Enrrique Mota Admit Provider [phone] MD Jairo Benson Other Provider MD Oswaldo Almonte Other Provider MD Gaye Claire Attending Provider [phone] MD Alcides Moya Admit Provider MD Alcides Moya Attending Provider [phone] KORTNEY Mehta Other Provider Unavailable KORTNYE Hannah Other Provider Unavailable KORTNEY Dutton Other Provider Unavailable KORTNEY Garrett Other Provider Unavailable KORTNEY Smith Other Provider Unavailable KORTNEY Ayon Other Provider Unavailable MD Familia Villatoro Other Provider MD Misha Ziegler Other Provider HEIDI Coronado Chery M Other Provider DO José Miguel [...] Provider MD Damion Thapa Other Provider YEN Barr-Erik Quiroga Other Provider MD Valente Lauren Other [...] DO Honey Rabago Primary Care Provider [phone] DO Marvin Peter M Emergency Provider MD Enrrique Mota Admit Provider MD Jairo Benson Other Provider MD Oswaldo [...] Provider MD Misha Ziegler Other Provider Dials, ORCHID TRANSPLANTER Chery M Other Provider [phone] DO José Miguel Tellez Other Provider [...] Other Provider MD Corona Weathers Other Provider Mara, KORTNEY Nance Other Provider Unavailable DO Honey Rabago Attending Provider [phone] Honey Rabago DO Primary Care Provider DO Honey Rabago Primary Care Provider [phone] DO Honey Rabago Attending Provider Honey Rabago [...] Smith Consulting Unavailable Erika Ayon Consulting Unavailable Familia Villatoro Consulting Unavailable Toney, Misha K Consulting Unavailable Chery Coronado Consulting Unavailable José Miguel Tellez Consulting Unavailable George Chan Consulting Unavailable Justice De Oliveira Consulting UnavailEnrrique Her Consulting Unavailable Rosa Maria Odell Consulting Unavailable Tonya Suh Consulting Unavailable Juan Wallace Consulting Unavailable Jerson Walker Consulting Unavailable Gaye Claire Consulting Unavailable Queta Mclain Consulting Unavailable Rd Blackmon Consulting Unavailable Anibal Gallagher Consulting Unavailable Damion Thapa Consulting Unavailable Faustina Barr Consulting Unavailable DoameartorValente Consulting Unavailab Kareem Estrella Consulting Unavailable Filemon, Italia Consulting Unavailable Lety, Ronan Consulting Unavailable Shantel Nayak Consulting Unavailable Kaylie Guthrie Consulting Unavailab Michael Hearn Consulting Unavailable MiniaciSony Consulting Unavailable Obika, Aamnda Consulting Unavailable Lázaro Pratt Consulting Unavailable Daromar, Obaydah M Consulting Unavailable Lee Ann Terry Consulting Unavailable Holger Dorado Admitting Unavailable Vaschak, Honey Primary Care Unavailable Holger Dorado Attending Unavailable Tupa Sumanth M Admitting Unavailable Vaschak, Honey Primary Care Unavailable Tuwei, Sumanth Meyer Attending Unavailable Vaschak, Honey Primary Care Unavailable [...] VASCHAK, DR MÉNDEZ Admitting Unavailable VASCHAK, DR MÉDNEZ Attending Unavailable VASCHAK, DR MÉNDEZ Attending Unavailable [...] Attending Unavailable VASCHAK, DR MÉNDEZ Admitting Unavailable HIMA, DR MÉNDEZ Consulting Unavailable HONEY RABAGO Primary Care Unavailab GLORIA Villeda Referring Unavailable GLORIA PEREZ Attending Unavailable HONEY RABAGO Primary Care Unavailab GLORIA Villeda Attending Unavailable HONEY RABAGO Attending Unavailable HONEY RABAGO Referring Unavailable MAC VILLASENOR Referring Unavailable URBANO HUTTON Attending Unavailable Honey Rabago DO Primary Care Provider Allergies Allergy Classification Reported Allergen(s) Allergy Type Date of Onset Reaction(s) Facility Aminoketones (1 source) buPROPion Drug Allergy 08-01-19 21 Hallucinating [facility] Latex (1 source) Latex Substance Allergy 08-01-19 Rash [facility] Opioid Agonists (1 source) HYDROcodone Drug Allergy 08-01-19 Unknown Reaction [facility] (20 sources) Acetaminophen / HYDROcodone; Translations: [Vicodin] Drug Allergy Unknown [facility] (20 sources) buPROPion; Translations: [BUPROPION] Drug Allergy 01-19-20 17 Mental Status Change, Other [facility] Work Phone: (20 sources) Latex Propensity to adverse reactions 11-05-19 Unknown, [facility] (11 sources) Acetaminophen / HYDROcodone; Translations: [HYDROCODONE-ACET AMINOPHEN] Drug Allergy 04-13-19 17 Mental Status Change, Other [facility] (10 sources) Adhesive Tape; Translations: [ADHESIVE TAPE (ROSINS)] Allergy to substance 01-13-20 [facility] Work Phone: (11 sources) Latex; Translations: [LATEX, NATURAL RUBBER] Drug Allergy 04-13-19 17 [facility] (10 sources) rosuvastatin; Translations: [ROSUVASTATIN CALCIUM] Drug Allergy 01-13-[address] [facility] Work Phone: (7 sources) HYDROcodone; Translations: [hydrocodone] Drug Allergy 01-13-20 21 Unknown [facility] (1 source) buPROPion Drug Allergy 11-05-19 [facility] Repository (1 source) Latex Drug allergy (disorder) 11-05-19 [facility] Repository (1 source) natural latex rubber Drug allergy (disorder) [facility] Repository (1 source) Rosuvastatin calcium Allergy to substance 01-13-20 21 Unknown [facility] (1 source) Other Allergy to substance 01-13-20 21 Rash [facility] Healthcare Medications Current Medications Medication Drug Class(es) Dates [...] 01/18/2023: Pt takes 2 tabs daily per [employer] med list 0 Active take 1 tablet by rc th every six hours as needed Acetaminophen 500 MG 1 tablet as needed Orally every 6 hrs Active Comment on above: Take 500 mg by mouth every 8 hours as needed. 01/18/2023: Pt takes 2 tabs daily per [employer] med list Aspir-81 (16 sources) Aspir-81 Active atorvastatin 40 mg oral tablet (20 sources) HMG-CoA Reductase Inhibitor Start: 02-15-2023 take 1 tablet by mouth once daily atorvastatin (Lipitor) 40 MG tablet Indications: Mixed hyperlipidemia (CMS/HCC) Take 1 tablet (40 mg) by mouth 1 (one) time each day at the same time 90 tablet 3 02/15/2023 Active Start: 11-04-2021 End: 11-25-2021 take 40 mg [...] RC TH ONCE DAILY FOR 90 DAYS carbidopa 25 mg / levodopa 100 mg oral tablet (20 sources) Aromatic Amino Acid Decarboxylation Inhibitor, Aromatic Amino Acid Start: 04-13-2022 carbidopa-levodopa (Sinemet) 25-100 MG tablet Take 1.5 tablets by mouth in the morning and 1.5 tablets at noon and 1.5 tablets in the evening. 0 04/13/2022 Active Start: 11-04-2021 End: 04-13-2023 take 1.5 tablets by mouth three times [...] 1.5 tablets by mouth three times daily. cholecalciferol 0.125 mg oral capsule (20 sources) [...] 1 tablet by rc th once daily in the morning Cholecalciferol (Vitamin D3) (Vitamin D3) 125 mcg (5,000 unit) Tablet Active 125 MCG PO Every morning November 04, 2021 12:00am cholecalciferol (Vitamin D-3) 50 MCG (2000 UT) capsule 1 capsule 1 (one) time each day at the same time. 0 Active cholecalciferol (VITAMIN D3) 5,000 unit tab Take by mouth once daily. 0 Active take 1 capsule by mo uth once daily Cholecalciferol 125 MCG (5000 UT) 1 capsule Orally Once a day Active Cholecalciferol, Vitamin D3, 1,000 unit cap Take by mouth once daily. 0 Active Comment on above: Take by mouth once d aily. Continuous Blood Gluc Sensor (FreeStyle Vivian 2 Sensor) [facility] (1 source) Start: 02-14-2023 Continuous Blood Gluc Sensor (FreeStyle Vivian 2 Sensor) [facility] Indications: Type 2 diabetes mellitus with other specified complication, unspecified whether residential insulin use ([facility]) apply 1 SENSOR to back OF UPPER ARM REMOVE AND REPLACE every 14 days 6 each 3 02/14/2023 Active diclofenac sodium 0.01 mg/mg topical gel (10 sources) Nonsteroidal Anti-inflammatory Drug Start: 05-08-2022 diclofenac sodium 1 % gel Apply 2 g topically 0 05/08/2022 Active Start: 05-08-2022 diclofenac (VO LTAREN) 1 % topical gel End: 01-20-2023 diclofenac [...] as needed. Apply to affected ar ea. estradiol 0.1 mg/ml vaginal cream (3 sources) Estrogen Start: 12-20-2022 End: 12-20-2023 estradiol (Estrace) 0.1 MG/GM vaginal cream Indications: Genitourinary syndrome of menopause Apply to vagina 3x/week x 1month then 2x/week x 1 month then once weekly 42.5 g 3 12/20/2022 12/20/2023 Active estradiol (ESTRA CE) 0.01 % (0.1 mg/gram) vaginal cream Use vaginally one time a week. 0 Active Comment on above: Use vaginally one ti me a week. fluocinolone acetonide 0.1 mg/ml topical oil (4 sources) Corticosteroid Start: 10-07-2022 Fluocinolone Acetonide Scalp 0.01 % oil Indications: Other seborrheic dermatitis Apply to scalp at bedtime as needed for rough, scaly area 118.28 mL 11 10/07/2022 Active Fluocinolone-Elissa wer Cap 0.01 % oil by scalp route. 0 Active Comment on above: by scalp route. fluocinonide 0.5 mg/ml topical solution (1 source) Corticosteroid Start: 10-07-2022 fluocinonide (Lidex) 0.05 % external solution Indications: Other seborrheic dermatitis Apply to affected areas on the scalp every day prn flares 60 mL 11 10/07/2022 Active ketoconazole 20 mg/ml medicated shampoo (8 sources) Azole Antifungal Start: 10-07-2022 ketoconazole (NIZOral) 2 % shampoo Indications: Other seborrheic dermatitis Lather on scalp 2-3 x weekly, leave on 5 min before rinsing 120 mL 10/07/2022 Active End: 02-15-2022 ketoconazole (NIZORAL) 2 % s hampoo Apply to affected area two times a week. 0 Active Comment on above: Apply 1 application to affected area as directed. Apply to affected ar ea two times a week. levothyroxine sodium 0.075 mg oral tablet (20 sources) l-Thyroxine Start: 02-12-20 End: 08-10-19 take 1 tablet by mouth before mealtime levothyroxine (Synthroid, Levoxyl) 75 MCG tablet Indications: Hypothyroidism, unspecified type (CMS/HCC) Take 1 tablet (75 mcg) by mouth in the morning. Take before meals. 90 tablet 1 02/11/2023 08/10/2023 Active Start: 01-18-2017 End: 11-25-2021 levothyroxine (SYNTHROID) 75 mcg tablet once daily. 0 12/29/2017 Active Synthroid 75 MCG 1 tablet every morning on an empty stomach Orally Once a day for 30 day(s) Active Comment on above: once daily. 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 90 tablet 3 02/15/2023 Active Start: 02-12-2022 take 1 tablet by rc th once daily metFORMIN (GLUCOPHAGE) 500 mg tablet [...] day Active take 2 tablets by mo [facility] every twelve hours metFORMIN HCl 500 MG 2 tablets Orally Twice a day Active Comment on above: Take 500 mg by mouth twice daily with meals. Pt takes 2,000 mg daily Take 1 tablet by rc th once daily. metoprolol tartrate 50 mg oral tablet (20 sources) beta-Adrenergic Migdlaia Start: 03-21-2023 metoprolol tartrate (Lopressor) 50 MG tablet Indications: Hypertension, unspecified type (CMS/HCC) Take 1.5 tablets (75 mg) by mouth every 12 (twelve) hours 135 tablet 3 03/21/2023 Active Start: 01-13-2022 take 1 tablet by rc twice daily at mealtime metoprolol tartrate, short acting, (LOPRESSOR) 50 mg tablet TAKE 1 & 1/2 (ONE & ONE-HALF) TABLETS BY MOUTH TWICE DAILY WITH FOOD 0 01/13/2022 Active Start: 11-24-2021 take 75 mg by mouth twice gautam y Metoprolol Tartrate Active 75 MG PO Twice daily 120 November 23, 2021 11:00pm Start: 01-18-2017 metoprolol tar trate, short acting, (LOPRESSOR) 50 mg tablet twice daily. 1.5 tablets 2x daily 0 01/05/2018 Active Start: 01-18-2017 End: 11-25-2021 take 75 mg by mouth twice daily Metoprolol Tartrate Di scontinued 75 MG PO Twice daily January 18, 2017 12:00am November 25, 2021 3:31pm take 1 tablet by rc th every twenty-four hours metoprolol succinate XL (Toprol-XL) 25 MG 24 hr tablet Take by mouth Do not crush or chew. 0 Active take 1 tablet by rc th twice daily metoprolol tartrate, short acting, (LOPRESSOR) 25 mg tablet Take 25 mg by mouth twice daily. 0 Active take 2 tablets by mo [facility] every twelve hours Metoprolol Tartrate 37.5 MG [...] twice daily. mirtazapine 7.5 mg oral tablet (18 sources) Start: 01-25-2022 End: 08-10-2023 take 1 tablet by mouth at bedtime mirtazapine (Remeron) 7.5 MG tablet Indications: Anxiety Take 1 tablet (7.5 mg) by mouth at bedtime. 90 tablet 1 02/11/2023 08/10/2023 Active Start: 11-10-2021 End: 11-25-2021 take 1 [...] 2021 12:00am take 1 tablet by rc every twenty-four hours Mirtazapine 7.5 MG 1 tablet at bedtime Orally Once a day Active Comment on above: Take 7.5 mg by mouth daily at bedtime. Multiple Vitamins-Minerals (PRESERVISION AREDS 2 PO) (1 source) Multiple Vitamins-Minerals (PRESERVISION AREDS 2 PO) Take by mouth 2 (two) times a day. 0 Active omeprazole 20 mg delayed release oral capsule (20 sources) Proton Pump Inhibitor Start: take 1 capsule by mouth once daily omeprazole (PriLOSEC) [address] capsule Indications: Gastroesophageal reflux disease without esophagitis Take 1 capsule (20 mg) by mouth 1 (one) time each day at the same time 90 capsule 3 03/01/2023 Active Start: 02-08-2018 omeprazole (ID ILOSEC) 20 mg capsule 20 mg once daily. [...] Comment on above: 20 mg once daily. oxyCODONE hydrochloride 5 mg oral tablet (13 sources) Opioid Agonist Start: 11-10-2021 End: 11-25-2021 take 5 mg by mouth every six hours Oxycodone Active 5 MG PO Every 6 hours 12 18November 24, 2021 Start: 11-10-2021 take 5 mg [...] November 04, 2021 5:03pm polyethylene glycol 3350 70617 mg powder for oral solution (16 sources) Osmotic Laxative Start: 11-10-2021 End: 11-25-2021 Polyethylene Glycol 3350 (Miralax) 17 gram Powder In Packet Active 17 GM PO Twice daily 04 12November 23, 2021 11:00pm Start: 11-10-2021 Polyethylene G lycol 3350 (Miralax) 17 gram Powder In Packet Active 17 GM PO Twice daily 0 November 10, 2021 12:00am Start: 08-30-2022 Polyethylene G lycol 3350 (Miralax) 17 gram Powder In Packet Active 17 GM PO Twice daily 0 November 10, 2021 12:00am End: 02-15-2022 polyethylene glycol, PEG, 33 50 (MiraLax) 17 GM/SCOOP powder 1 (one) time each day at the same time. 0 Active Comment on above: Take 17 [...] sources) PreserVision/Lut ein as directed Orally Active SITagliptin 100 mg oral tablet (20 sources) Dipeptidyl Peptidase 4 Inhibitor Start: 01-20-2023 take 0.5 tablet by mouth in the morning Januvia 100 MG tablet Indications: Diabetic peripheral neuropathy associated with type 2 diabetes mellitus (CMS/HCC) Take 0.5 tablets (50 mg) by mouth in the morning. Take 50 mg by mouth in the morning.. 90 tablet 1 01/20/2023 Active Start: 06-12-2022 JANUVIA 100 mg tablet Take 50 mg [...] Take 50 mg by mouth once daily. venlafaxine 75 mg oral tablet (20 sources) Serotonin and Norepinephrine Reuptake Inhibitor Start: 02-16-20 take 1 capsule by mouth every twenty-four hours in the morning venlafaxine XR (Effexor XR) 150 MG 24 hr capsule Indications: Recurrent major depression in full remission (CMS/HCC) Take 1 capsule (150 mg) by mouth in the morning. 90 capsule 3 02/15/2023 Active Start: 02-15-2023 take 1 tablet by rc th in the morning venlafaxine (Effexor) 75 MG tablet Indications: Recurrent major depression in full remission (CMS/HCC) Take 1 tablet (75 mg) by mouth in the morning. 90 tablet 3 02/15/2023 Active Start: 01-10-2023 venlafaxine (E FFEXOR) 75 mg tablet Start: 01-10-2023 VENLAFAXINE ER [...] morning November 05, 2021 12:00am Start: 11-05-2021 End: 11-05-2021 take 75 mg by mouth once daily Venlafaxine Discontinue d 75 MG PO Daily after supper November 04, 2021 11:00pm November 05, 2021 12:44pm Start: 11-05-2021 End: 11-25-2021 take 75 mg by mouth once daily in the evening Venlafaxine Discontinued 75 MG PO Every evening November 04, 2021 11:00pm November 25, 2021 3:31pm Start: 11-05-2021 take 75 mg by mouth once daily in the evening Venlafaxine Active 75 MG PO Every evening November 05, 2021 12:00am Start: 01-18-2017 take 75 mg by mouth twice gautam y Venlafaxine Active 75 MG PO Twice daily January 18, 2017 7:43am Start: 01-18-2017 End: 11-05-2021 take 150 mg by mouth once daily Venlafaxine Discontinu ed 150 MG PO Daily January 18, 2017 12:00am November 05, 2021 12:37pm End: 01-20-2023 venlafaxine ER (EFFEXOR XR) 150 mg 24 hr capsule 150 mg once daily. 0 01/20/2023 Discontinued take 1 tablet by rc every twelve hours Venlafaxine HCl 25 MG 1 tablet with food Orally Twice a day Active take 1 tablet by rc th twice daily Effexor 50 MG 1 tablet Orally Twice a day for 30 day(s) Active Comment on above: 150 mg once daily. Take 75 mg by mouth once daily. Take 75 mg by mouth. Vitamin B12 1000 MCG (5 sources) take 1 tablet by mouth once daily Vitamin B12 1000 MCG 1 tablet Orally Once a day Active Vitamin D 2000 UNIT (16 sources) take 1 tablet by mouth once gautam y Vitamin D 2000 UNIT 1 tablet Orally Once a day Active Vitamin D 25 MCG (1000 UT) (2 sources) take 1 tablet by mouth once daily Vitamin D 25 MCG (1000 UT) 1 tablet Orally Once a day Active warfarin sodium 4 mg oral tablet (20 sources) Vitamin K Antagonist Start: 02-11-2023 warfarin (Coumadin) 2 MG tablet Indications: History of DVT (deep vein thrombosis) Daily except (on take Warfarin 4mg) 90 tablet 1 02/11/2023 Active Start: 02-11-2023 warfarin (Coum angelika) 4 MG tablet Indications: History of DVT (deep vein thrombosis) Take every . Pt takes Warfarin 2mg daily except 13 tablet 1 02/11/2023 Active Start: 06-15-2022 warfarin (COUM ANGELIKA) 4 mg tablet Start: 11-11-2021 End: 11-25-2021 [...] Comment on above: 1 tablet once daily. Completed/Discontinued Medications Medication Drug Class(es) Dates Sig (Normalized) Sig (Original) ascorbic acid 226 mg / cuprous oxide 0.8 mg / dl-alpha tocopheryl acetate 200 unt / lutein 5 mg / zinc oxide 34.8 mg oral capsule (8 sources) Vitamin C Start: 02-22-2017 End: 07-10-2017 Vit I-W-Asnlzj-Zinc-Lute in (Preservision Lutein) 226 mg-200 unit -5 mg-0.8 mg Capsule Discontinued 1 TAB PO As Directed February 22, 2017 12:00am July 10, 2017 5:45pm take 2 capsules by m outh every twenty-four hours PreserVision/Lutein - 2 capsules Orally daily Active aspirin 81 mg delayed release oral tablet (8 sources) Platelet Aggregation Inhibitor, Nonsteroidal Anti-inflammatory Drug [...] 18, 2017 12:00am November 04, 2021 4:59pm End: 09-29-2021 take 1 capsule by mouth in the morning biotin 5 MG capsule Take 5 mg by mouth in the morning. 0 Active take 1 tablet by mouth once gautam y Biotin 10 MG 1 tablet Orally Once a day for 30 day(s) Not-Taking Comment on above: Take 5 mg by mouth o nce daily. cefdinir 300 mg oral capsule (5 [...] hours Cephalexin Discontinued 500 MG PO Q8H 01 10September 27, 2021 11:00pm November 04, 2021 5:00pm [...] tablet by mouth every twe nty-four hours docusate sodium 50 mg / sennosides, halfway 8.6 mg oral tablet (5 sources) Start: [...] 12:00am Start: 11-10-2021 take 2 tablets by [facility] twice daily Sennosides-Docusate Sodium (Stool Softener-Stimulant Laxat) 8.6-50 mg Tablet Active 2 TAB PO Twice daily 0 November 10, 2021 12:00am ezetimibe 10 mg oral tablet (20 sources) Dietary Cholesterol Absorption Inhibitor Start: 02-22-2017 End: 07-10-2017 take 1 tablet by mouth once daily Ezetimibe (Zetia) 10 mg Tablet Discontinued 10 MG PO Daily February 22, 2017 12:00am July 10, 2017 5:44pm FREESTYLE VIVIAN 2 SENSOR kit (6 sources) Start: 01-25-2022 FREESTYLE LIBR E 2 SENSOR kit apply 1 SENSOR to back OF UPPER ARM REMOVE AND REPLACE every 14 days 0 01/25/2022 Active Comment on above: apply 1 SENSOR to ba ck OF UPPER ARM REMOVE AND REPLACE every 14 days furosemide 20 mg oral tablet (20 sources) Loop Diuretic Start: 03-01-2019 End: 02-15-2022 take 1 tablet by mouth once daily furosemide (LASIX) 20 mg tablet Take 1 tablet by mouth once daily. 0 03/01/2019 02/15/2022 Discontinued (Discontinued by another Health Care Provider) Furosemide Activ e Comment on above: Take 1 tablet by [facility] once daily. gabapentin 300 mg oral capsule (7 sources) Anti-epileptic Agent Start: 01-26-2022 End: 01-20-2023 take 1 capsule by mouth once daily at bedtime gabapentin (NEURONTIN) 300 mg capsule Take 300 mg by mouth daily at bedtime. 0 01/26/2022 01/20/2023 Discontinued (Course of therapy completed) take 1 capsule by [facility] every twenty-four hours Gabapentin 300 MG 1 capsule Orally Once a day Active Comment on above: Take 300 mg by mouth daily at bedtime. Lactobacillus acidophilus (4 sources) End: 02-15-2022 Lactobacillus acidophilus (PROBIOTIC ORAL) Take by mouth. 0 02/15/2022 Discontinued (Course of therapy completed) Lactobacillus ac idophilus (PROBIOTIC ORAL) Take by mouth. 0 Active Comment on above: Take by mouth. MEDICATION, NON-DATABASE (2 sources) MEDICATION, NON- DATABASE 750 mg two times a day. Antiacid extra strength 0 Active Comment on above: 750 mg two times a d ay. Antiacid extra strength Nystatin (4 sources) Polyene Antifungal End: 02-15-2022 NYSTATIN ORAL Take by mouth. 0 02/15/2022 Discontinued (Course of therapy completed) NYSTATIN ORAL Ta ke by mouth. 0 Active Comment on above: Take by mouth. microencapsulated potassium chloride 10 meq extended release [...] 10 mg one tab orally daily Active solifenacin succinate 5 mg oral tablet (20 sources) Cholinergic Muscarinic Antagonist Start: 02-22-2017 End: 11-04-2021 take 1 tablet by mouth [...] 09, 2017 11:00pm November 04, 2021 5:12pm Vit C,K-Gb-Ipktg-Lut ein-Zeaxan (Preservision Areds-2) [phone] iq-lhtw-it-mg Capsule (6 sources) Start: 01-18-2017 End: 07-10-2017 take 1 tablet by mouth once daily at bedtime Vit C,O-By-Fpaaq-Lutein -Zeaxan (Preservision Areds-2) 409-972-86-1 hj-rsik-ad-mg Capsule Discontinued 1 TAB PO every day in the morning and at bedtime January 18, 2017 7:43am July 10, 2017 6:45pm Start: 01-18-2017 End: 07-10-2017 take 1 tablet by mouth once daily at bedtime Vit C,R-Od-Thlzk-Lutein-Zeaxan (Preservision Areds-2) [phone] ch-vsjj-tl-mg Capsule Discontinued 1 TAB PO every day in the morning and at bedtime January 18, 2017 12:00am July 10, 2017 5:45pm Start: 01-18-2017 End: 07-10-2017 take 1 tablet by mouth once daily at bedtime Vit C,O-Ei-Sfgyz-Lutein-Zeaxan (Preservision Areds-2) 691-227-15-1 hp-lkoq-ne-mg Capsule Discontinued 1 TAB PO every day in the morning and at bedtime January 18, 2017 1:00am July 10, 2017 6:45pm Vit C,S-Rk-Zbmgr-Lutein-Zeax an (Preservision Areds-2) 250-90-40-1 mg Capsule (5 sources) Start: 11-04-2021 End: 11-25-2021 Vit C,P-Kv-Ixgbz-Lutein-Zeax an (Preservision Areds-2) 250-90-40-1 mg Capsule Discontinued 1 TAB PO Twice daily November 03, 2021 11:00pm November 25, 2021 3:32pm Start: 11-04-2021 End: 11-25-2021 Vit C,T-Ft-Apnnc-Lutein-Zeax an (Preservision Areds-2) 250-90-40-1 mg Capsule Discontinued 1 TAB PO Twice daily November 04, 2021 12:00am November 25, 2021 4:32pm Start: 11-04-2021 Vit C,E-Zn-Centralized Traffic Control Operator ma-Qbgnuz-Lobpyj (Preservision Areds-2) 250-90-40-1 mg Capsule Active 1 TAB PO Twice daily November 04, 2021 12:00am vit C/vit E ac/lut/copper/zinc (PRESERVISION LUTEIN ORAL) (9 sources) vit C/vit E ac/lut/copper/zinc (PRESERVISION LUTEIN ORAL) Take by mouth twice daily. 0 Active Comment on above: Take by mouth twice daily. vitamin b12 0.5 mg oral tablet (19 sources) Vitamin B12 Start: take 2 tablets by mouth once daily [...] 2 tablets by mo uth once daily. Warfarin - Pharmacy Dosing (Coumadin [...] [Unspecified abdominal pain] 11-09-2021 Episodic Anxiety disorders (6 sources) Mixed anxiety and depressive disorder; Translations: [Other specified anxiety disorders] Onset: 06-02-2020 Chronic Coronary atherosclerosis and other heart disease (1 source) Coronary atherosclerosis; Translations: [Atherosclerotic heart disease of [place] coronary artery without angina pectoris] Onset: 12-20-2022 12-20-2022 Chronic Deficiency and other anemia (3 sources) Anemia; Translations: [Anemia, unspecified] 11-19-2021 Episodic Diabetes mellitus with complications (3 sources) Neuropathy due to diabetes mellitus; Translations: [Type 2 diabetes mellitus with diabetic neuropathy, unspecified] Onset: 09-29-2020 12-20-2022 Chronic Diabetes mellitus without complication (10 sources) Diabetes mellitus; Translations: [Type 2 diabetes mellitus without complications] Onset: 11-11-2021 11-09-2021 Chronic Disorders of lipid metabolism (11 sources) Hyperlipidemia; Translations: [Hyperlipidemia, unspecified] Onset: 12-17-2014 11-09-2021 Chronic E Codes: Fall (5 sources) Fall; Translations: [Unspecified fall, initial encounter] 11-12-2021 Episodic Esophageal disorders (20 sources) Esophageal dysmotility; Translations: [Dyskinesia of esophagus] Onset: 02-01-2017 11-09-2021 Chronic Essential hypertension (10 sources) Hypertensive disorder; Translations: [Essential (primary) hypertension] Onset: 11-11-2021 11-09-2021 Chronic Genitourinary symptoms and ill-defined conditions (1 source) Urge incontinence of urine; Translations: [Urge incontinence] Onset: 09-06-2017 12-20-2022 Chronic Genitourinary symptoms and ill-defined conditions (4 sources) Frequency of micturition; Translations: [FREQUENCY OF MICTURITION] Onset: 06-01-2022 Episodic Headache; including migraine (1 source) Episodic paroxysmal hemicrania; Translations: [Episodic paroxysmal hemicrania, not intractable] Onset: 12-20-2022 12-20-2022 Chronic Hemorrhoids (20 sources) Hemorrhoids; Translations: [Unspecified hemorrhoids] Episodic Menopausal disorders (2 sources) Atrophic vaginitis; Translations: [Postmenopausal atrophic vaginitis] Onset: 12-20-2022 12-20-2022 Chronic Mood disorders (14 sources) Depressive disorder; Translations: [Depression] Onset: 12-20-2022 11-09-2021 Chronic Mood disorders (1 source) Mood disorders; Translations: [Depression, unspecified] Onset: 11-04-2021 Nutritional deficiencies (1 source) Vitamin D deficiency; Translations: [Vitamin D deficiency, unspecified] Onset: 12-16-2014 12-20-2022 Chronic Osteoarthritis (10 sources) Osteoarthritis; Translations: [Osteoarthrosis, unspecified whether generalized or localized, lower leg] Onset: 06-29-2012 06-29-2012 Chronic Osteoporosis (2 sources) Age-related osteoporosis without current pathological fracture; Translations: [Osteoporosis] Onset: 05-20-2022 12-20-2022 Chronic Other and unspecified benign neoplasm (1 source) Benign neoplasm of cerebral meninges; Translations: [Benign neoplasm of cerebral meninges] Onset: 12-16-2014 12-20-2022 Chronic Other fractures (13 sources) Compression fracture ; Translations: [Compression fracture] 11-09-2021 Episodic Other gastrointestinal disorders (20 sources) Dysphagia; Translations: [Dysphagia, unspecified] 11-09-2021 Episodic Other gastrointestinal disorders (1 source) Dysphagia, unspecified; Translations: [Dysphagia] Episodic Other hereditary and degenerative nervous system conditions (1 source) Impaired cognition; Translations: [Mild cognitive impairment, so stated] Onset: 04-26-2016 12-20-2022 Chronic Other injuries and conditions due to external causes (6 sources) Contusion; Translations: [Other injury of unspecified body region, initial encounter] 11-09-2021 Episodic Other lower respiratory disease (1 source) Fibrosis of lung; Translations: [Pulmonary fibrosis, unspecified] Onset: 04-14-2023 04-14-2023 Chronic Other nervous system disorders (1 source) Unresponsive ; Translations: [Other symptoms and signs involving cognitive functions and awareness] Episodic Other nutritional; endocrine; and metabolic disorders (20 sources) Body mass index 40+ - severely obese; Translations: [Body mass index (BMI) 40.0-44.9, adult] Chronic Other nutritional; endocrine; and metabolic disorders (3 sources) Obese class I; Translations: [Obesity, unspecified] Onset: 07-08-2022 07-08-2022 Chronic Other nutritional; endocrine; and metabolic disorders (1 source) Morbid obesity; Translations: [Morbid (severe) obesity due to excess calories] Onset: 10-31-2017 12-20-2022 Chronic Parkinson`s disease (20 sources) Parkinson's disease; Translations: [Parkinson's disease] Onset: 11-01-2016 Chronic Peripheral and visceral atherosclerosis (1 source) Peripheral vascular disease; Translations: [Peripheral vascular disease, unspecified] Onset: 12-20-2014 12-20-2022 Chronic Residual codes; unclassified (1 source) Daytime somnolence; Translations: [Other hypersomnia] Chronic Residual codes; unclassified (4 sources) Obstructive sleep apnea (adult) (pediatric); Translations: [OBSTRUCTIVE SLEEP APNEA] Onset: 02-02-2022 Chronic Residual codes; unclassified (4 sources) Sleep apnea, unspecified; Translations: [SLEEP APNEA UNSPECIFIED] Onset: 12-29-2021 Chronic Residual codes; unclassified (1 source) Sleep apnea; Translations: [Sleep apnea, unspecified] Onset: 05-21-2020 12-20-2022 Chronic Residual codes; unclassified (4 sources) Altered mental status, unspecified; Translations: [ALTERED MENTAL STATUS UNSPECIFIED] Onset: 07-14-2022 Episodic Retinal detachments; defects; vascular occlusion; and retinopathy (1 source) Age related macular degeneration; Translations: [Unspecified macular degeneration] Onset: 12-20-2022 12-20-2022 Chronic Thyroid disorders (11 sources) Hypothyroidism; Translations: [Hypothyroidism, unspecified] Onset: 12-16-2014 11-09-2021 Chronic Unclassified (1 source) Wedge compression [...] diagnosis is made] Onset: 11-04-2021 11-05-2021 Episodic Calculus of urinary tract (1 source) History of calculus of kidney; Translations: [Personal history of urinary calculi] Onset: 12-25-2015 12-20-2022 Episodic Coagulation and hemorrhagic disorders (1 source) Acquired coagulation factor inhibitor disorder; Translations: [Other hemorrhagic disorder due to intrinsic circulating anticoagulants, antibodies, or inhibitors] Onset: 09-29-2020 Resolved: 12-20-2022 12-20-2022 Chronic Deficiency and other anemia (3 sources) Anemia, unspecified; Translations: [Anemia, unspecified] Onset: 11-11-2021 11-25-2021 Episodic Immunizations and screening for infectious disease (1 source) Needs influenza immunization; Translations: [Encounter for immunization] Onset: 12-20-2022 12-20-2022 Episodic Malaise and fatigue (2 sources) Fatigue; Translations: [Other fatigue] Onset: 09-28-2021 Episodic Other aftercare (14 sources) Encounter for therapeutic drug level monitoring; Translations: [Medication monitoring encounter Z51.81] Onset: 12-10-2020 Resolved: 12-01-2021 Episodic Other aftercare (6 sources) Long-term current use of anticoagulant; Translations: [long-term (current) use of anticoagulants] Onset: 11-01-2016 11-09-2021 Episodic Other aftercare (13 sources) rn long term care (current) use of anticoagulants; Translations: [Long-term (current) use of anticoagulants] Onset: 11-04-2021 11-11-2021 Episodic Other aftercare (1 source) Anticoagulant effect; Translations: [long-term (current) use of anticoagulants] Onset: 12-20-2022 12-20-2022 Episodic Other connective tissue disease (6 sources) Recurrent falls ; Translations: [Repeated falls] Onset: 05-21-2020 Resolved: 12-20-2022 11-05-2021 Episodic Other connective tissue disease (5 sources) Repeated falls; Translations: [History of fall] Onset: 11-04-2021 11-11-2021 Episodic Other diseases of veins and lymphatics (1 source) Peripheral venous insufficiency; Translations: [Venous insufficiency (chronic) (peripheral)] Onset: 07-14-2017 12-20-2022 Episodic Other gastrointestinal disorders (1 source) Esophageal dysphagia; Translations: [Other dysphagia] Onset: 11-01-2016 Resolved: 12-20-2022 12-20-2022 Episodic Other gastrointestinal disorders (1 source) Incontinence of feces; Translations: [Full incontinence of feces] Onset: 06-19-2019 Resolved: 12-20-2022 12-20-2022 Episodic Phlebitis; thrombophlebitis and thromboembolism (2 sources) Acute embolism and thrombosis of unspecified deep veins of unspecified lower extremity; Translations: [H/O: Deep vein thrombosis] Onset: 01-29-2015 12-20-2022 Episodic Residual codes; unclassified (1 source) Other specified health status; Translations: [Other specified health status] Onset: 11-04-2021 Episodic Spondylosis; intervertebral disc disorders; other back problems (20 sources) Backache; Translations: [Dorsalgia, unspecified] Onset: 11-04-2021 11-04-2021 Episodic Urinary tract infections (15 sources) Urinary tract infectious disease; Translations: [Urinary tract infection, site not specified] Onset: 11-04-2021 09-28-2021 Episodic Results Test Name Value Interpretation Reference Range Facility ALL HEMOGLOBINon 04-27-2023 Hemoglobin (Bld) [Mass/Vol] 11.7 g/dL Low 12.0 - 16.0 g/dL [facility] Interpretation and review of laboratory results Abnormal [facility] XR CHEST 2 VIEWSon XR CHEST 2 [...] Moya, DO Normal Not Available Bebe 02-11-2023 CNPN Telephone (NRMDN) -- ALTON BARKER ([id number]) 1940 F Date Time Provider Department 02/11/23 GLORIA PEREZ During your visit today, we recorded the following information about you: NazarioMary Anne 02/11/2023 1:54 PM Signed [id number] [place] [address] - [address] [facility] [phone] [id number] carbidopa-levodopa (SINEMET 25-100) 25-100 mg per tablet Patient son called in today in regards to medication and wanting to switch pharmacy, they were told the best way to do this would be to request a new prescription. They would like it sent to [facility] Thank you! Anu Hillman RN 02/11/2023 2:59 [...] Date Reviewed: 01/20/2023 Reviewed by: Gloria Perez APRN.BIOMEDICAL ENGINEERING DIRECTOR - Fully Assessed Reason for Visit: Medication [...] 01/18/2023: Pt takes 2 tabs daily per [employer] [employer] [place] med list - MEDICATION, NON-DATABASE 750 mg [...] Of Date 02/11/2023 Noted Resolved OSTEOARTHROS KNEE [[id number]] 06/29/2012 Parkinson's disease without dyskinesia, with fl*03/02/2018 Obesity, Class I, BMI 30-34.9 [E66.9] 07/08/2022 Depression with anxiety [F41.8] 01/20/2023 Encounter Status:Closed by MARY ANNE BEATTY on 02/11/23 [facility] CNOVon 01-20-2023 CNOV Office Visit (NRMDN) -- ALTON BARKER ([id number]) 1940 F Date Time Provider Department 01/20/23 3:00 PM GLORIA PEREZ NRMARIBELL During your visit today, we recorded the following information about you: Height 1.676 m Gloria Perez APRN.[facility] 01/24/2023 12:36 PM Signed [facility] - FOLLOW UP EVALUATION Honey Rabago DO [address] [place] [address] [facility] [address] Dear Honey Rabago DO: I had the [...] Change halluc (more content not included)... Normal [facility] CULTURE URINEon 07-16-2022 CULTURE URINE Isolate [...] F Trimethoprim/Sulfamethoxaz ole <=20 S F Normal [facility] Comment on above: Performed By: #### U RCX #### [facility] [address] [place] [address] Dr. Joyce MCGREGOR (CLEAN/CATCH) ELECTROMATIC TYPIST/MICRO I F IND.on 2022 Bilirubin Ql (U) Negative Normal NEGATIVE [facility] Comment on above: Performed By: #### U MICRO, UACSIND #### [facility] [address] [address] [address] Joyce Strauss Clarity (U) CLEAR Normal CLEAR [facility] Comment on above: Performed By: #### U MICRO, UACSIND #### [facility] [address] [address] [address] Joyce Strauss Color (U) LT. YELLOW Normal YELLOW [facility] Comment on above: Performed By: #### U MICRO, UACSIND #### [facility] [address] [address] [address] Joyce Strauss Glucose Ql (U) Negative Normal NEGATIVE [facility] Comment on above: Performed By: #### U MICRO, UACSIND #### [facility] [address] [place] [address] Dr. Joyce Strauss Hemoglobin Ql (U) Negative Normal NEGATIVE [facility] Comment on above: Performed By: #### U MICRO, UACSIND #### [facility] [address] [address] [address] Joyce Strauss Ketones Ql (U) Negative Normal NEGATIVE [facility] Comment on above: Performed By: #### U MICRO, UACSIND #### [facility] [address] [place] [address] Dr. Joyce Strauss LEUKOCYTES LARGE Abnormal NEGATIVE [facility] Comment on above: Performed By: #### U MICRO, UACSIND #### [facility] [address] [address] [address] Joyce Strauss Nitrite Ql (U) Positive Abnormal NEGATIVE [facility] Comment on above: Performed By: #### U MICRO, UACSIND #### [facility] [address] [place] [address] Dr. Joyce Strauss pH (U) 5.5 [pH] Normal 5-9 [facility] Comment on above: Performed By: #### U MICRO, UACSIND #### [facility] [address] [address] [address] Joyce Strauss SPEC GRAVITY 1.010 Normal 1.005-<=1. 025 [facility] Comment on above: Performed By: #### U MICRO, UACSIND #### [facility] [address] [place] [address] Dr. Joyce Strauss UA PROTEIN TRACE Normal NEGATIVE/ TRACE [facility] Comment on above: Performed By: #### U MICRO, UACSIND #### [facility] [address] [place] [address] Dr. Joyce Strauss UR MICRO IND INDICATED Normal [facility] Comment on above: Performed By: #### U MICRO, UACSIND #### [facility] [address] [place] [address] Dr. Joyce Strauss Urobilinogen Qn (U) 0.2 {Cam'U}/dL Normal 0.2 - 1. 0 [facility] Comment on above: Performed By: #### U MICRO, UACSIND #### [facility] [address] [place] [address] Dr. Joyce Strauss URINE MICROSCOPIC ONLYon BACTERIA LARGE Abnormal NONE SEEN [facility] Comment on above: Performed By: #### U MICRO, UACSIND #### [facility] [address] [place] [address] Dr. Joyce Strauss Bacteria identified Cx Nom (U) INDICATED Normal [facility] Comment on above: Performed By: #### U MICRO, UACSIND #### [facility] [address] [place] [address] Dr. Joyce Strauss CA OX CRYSTALS RARE Normal [facility] Comment on above: Performed By: #### U MICRO, UACSIND #### [facility] [address] [place] [address] Dr. Joyce Strauss CAST NONE SEEN Normal NONE SEEN [facility] Comment on above: Performed By: #### U MICRO, UACSIND #### [facility] [address] [place] [address] Dr. Joyce Strauss Crystals LM Nom (Urine sed) SEEN Abnormal NONE SEEN [facility] Comment on above: Performed By: #### U MICRO, UACSIND #### [facility] [address] [address] [address] Joyce Strauss Epithelial cells LM Ql (Urine sed) FEW Abnormal NONE SEEN /RARE [facility] Comment on above: Performed By: #### U MICRO, UACSIND #### [facility] [address] [address] [address] Joyce Strauss MUCOUS NONE SEEN Normal NONE SEEN [facility] Comment on above: Performed By: #### U MICRO, UACSIND #### [facility] [address] [address] [address] Joyce Strauss RBC NONE SEEN Abnormal 0-2 [facility] Comment on above: Performed By: #### U MICRO, UACSIND #### [facility] [address] [address] [address] Joyce Strauss WBC (U) [#/Vol] /uL Abnormal NONE SEEN [facility] Comment on above: Performed By: #### U MICRO, UACSIND #### [facility] [address] [address] [address] Joyce Strauss CNOVon 07-08-2022 CNOV Office Visit (NRMDN) -- ALTON BARKER ([id number]) 1940 F Date Time Provider Department 07/08/22 3:00 PM GLORIA PEREZ NRMARIBELL During your visit today, we recorded the following information about you: Weight Height 85.1 kg 1.676 m Gloria Perez APRN.BIOMEDICAL ENGINEERING DIRECTOR 07/11/2022 5:23 PM Signed [facility] - FOLLOW UP EVALUATION Honey Rabago DO, DO [address] [facility] [address] [facility] [address] Dear Honey Rabago DO, DO: I had [...] She likes the staff. 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 Normal [facility] CULTURE URINEon 06-03-2022 CULTURE URINE Isolate [...] Trimethoprim/Sulfamethoxaz ole <=20 S F Normal [facility] Comment on above: Performed By: #### U RCX #### [facility] [address] [place] [address] Dr. Joyce Strauss UA RANDOMon 06-01-2022 Bilirubin Ql (U) Negative Normal NEGATIVE [facility] Comment on above: Performed By: #### U A #### [facility] [address] [place] [address] Dr. Joyce Strauss Clarity (U) CLOUDY Abnormal CLEAR [facility] Comment on above: Performed By: #### U A #### [facility] [address] [place] [address] Dr. Joyce Strauss Color (U) YELLOW Normal YELLOW [facility] Comment on above: Performed By: #### U A #### [facility] [address] [place] [address] Dr. Joyce Strauss Glucose Ql (U) Negative Normal NEGATIVE [facility] Comment on above: Performed By: #### U A #### [facility] [address] [place] [address] Dr. Joyce Strauss Hemoglobin Ql (U) MODERATE Abnormal NEGATIVE [facility] Comment on above: Performed By: #### U A #### [facility] [address] [place] [address] Dr. Joyce Strauss Ketones Ql (U) Negative Normal NEGATIVE [facility] Comment on above: Performed By: #### U A #### [facility] [address] [place] [address] Dr. Joyce Strauss LEUKOCYTES LARGE Abnormal NEGATIVE [facility] Comment on above: Performed By: #### U A #### [facility] [address] [place] [address] Dr. Joyce Strauss Nitrite Ql (U) Positive Abnormal NEGATIVE [facility] Comment on above: Performed By: #### U A #### [facility] [address] [place] [address] Dr. Joyce Strauss pH (U) 6.0 [pH] Normal 5-9 [facility] Comment on above: Performed By: #### U A #### [facility] [address] [place] [address] Dr. Joyce Strauss SPEC GRAVITY 1.010 Normal 1.005-<=1. 025 [facility] Comment on above: Performed By: #### U A #### [facility] [address] [place] [address] Dr. Joyce Strauss UA PROTEIN 100 mg/dl Abnormal NEGATIVE/ TRACE [facility] Comment on above: Performed By: #### U A #### [facility] [address] [place] [address] Dr. Joyce Strauss Urobilinogen Qn (U) 1.0 {Cam'U}/dL Normal 0.2 - 1. 0 [facility] Comment on above: Performed By: #### U A #### [facility] [address] [place] [address] Dr. Joyce Spence 02-15-2022 REKHA Telephone (ANIA) -- ALTON BARKER ([id number]) 1940 F Date Time Provider Department 02/15/22 GLORIA PEREZ During your visit today, we recorded the following information about you: Gloria Perez APRN.BIOMEDICAL ENGINEERING DIRECTOR 02/15/2022 1:56 PM Signed I tried callingGina, the social insurance adviser in her primary care provider's office. I left a message requesting a call back. Gloria Perez APRN-BIOMEDICAL ENGINEERING DIRECTOR Allergies As of Date: 02/15/2022 Noted Allergy Reaction HYDROCODONE-ACETAMINOPHEN 04/13/2016 1 - Mental Status Change ADHESIVE TAPE (ROSINS) 01/12/2021 2 - Rash BUPROPION 01/18/2017 1 - Mental Status Change Comments: hallucinations LATEX, NATURAL RUBBER 04/13/2016 2 - Rash ROSUVASTATIN CALCIUM 01/12/2021 16 - Unknown Date Reviewed: 02/12/2022 Reviewed by: Cehry Tran MA - Fully Assessed Reason for [...] Take 75 mg by mouth. - FREESTYLE VIVIAN 2 SENSOR kit apply [...] Of Date 02/15/2022 Noted Resolved OSTEOARTHROS KNEE [[id number]] 06/29/2012 Parkinson's disease (HCC) [G20] 03/02/2018 Prescriptions [...] Status:Closed by GLORIA PEREZ on 02/15/22 Normal [facility] Urine culture routineOrdered By: Honey Rabago on 01-01-2022 Bacteria identified Cx Nom (U) Escherichia coli [facility] Automated erythrocytes count in urine sediment (number/area)Ordered By: Honey Rabago on 12-30-2021 RBC Auto (Urine sed) [#/Area] 3-4 [HPF] 0-4 [facility] Automated leukocytes count i n urine sediment (number/area)Ordered By: Honey Rabago on 12-30-2021 WBC Auto (Urine sed) [#/Area] 50-100 [HPF] 0-4 [facility] Automated urine color determ inationOrdered By: Honey Rabago on 12-30-2021 Color (U) Yellow Normal Yellow [facility] Comment on above: Order Comment: Name Collection Type:: Clean-Voided Midstream Performed By: #### G LULS #### Point of Care testing , Bilirubin Test strip Ql (U)O rdered By: Honey Rabago on 12-30-2021 Bilirubin Ql (U) Negative Negative [facility] Dipstick and Microscopicon 1 Appearance (U) Cloudy Critically abnormal Clear [facility] Comment on above: Order Comment: Name Collection Type:: Clean-Voided Midstream Performed By: #### G LULS #### Point of Care testing , Bacteria,Urine 1+ High None Seen [facility] Comment on above: Order Comment: Name Collection Type:: Clean-Voided Midstream Performed By: #### G LULS #### Point of Care testing , Bilirubin,Urine Negative Normal Negative [facility] Comment on above: Order Comment: Name Collection Type:: Clean-Voided Midstream Performed By: #### G LULS #### Point of Care testing , Glucose Ql (U) Normal Normal Normal [facility] Comment on above: Order Comment: Name Collection Type:: Clean-Voided Midstream Performed By: #### G LULS #### Point of Care testing , Hyaline Casts,Urine 0-8 Normal 0-8 [facility] Comment on above: Order Comment: Name Collection Type:: Clean-Voided Midstream Result Comment: PERF ORMED BY: [facility] [address] [place] [address] PATHOLOGIST [employer]UST[employer] GROUNDSKEEPER FLIP GERMAN M.D. Performed By: #### G LULS #### Point of Care testing , Ketones Ql (U) Negative Normal Negative [facility] Comment on above: Order Comment: Name Collection Type:: Clean-Voided Midstream Performed By: #### G LULS #### Point of Care testing , Leukocyte esterase Test strip Ql (U) 3+ High Negative [facility] Comment on above: Order Comment: Name Collection Type:: Clean-Voided Midstream Performed By: #### G LULS #### Point of Care testing , Nitrite,Urine Positive High Negative [facility] Comment on above: Order Comment: Name Collection Type:: Clean-Voided Midstream Performed By: #### G LULS #### Point of Care testing , Occult Blood,Urine Negative Normal Negative [facility] Comment on above: Order Comment: Name Collection Type:: Clean-Voided Midstream Result Comment: PERF ORMED BY: [facility] [place] [address] PATHOLOGIST [employer] FLIP GERMAN M.D. Performed By: #### G LULS #### Point of Care testing , Othe Crystals,Urine None Seen Normal [facility] Comment on above: Order Comment: Name Collection Type:: Clean-Voided Midstream Performed By: #### G LULS #### Point of Care testing , Protein,Urine Trace High Negative [facility] Comment on above: Order Comment: Name Collection Type:: Clean-Voided Midstream Performed By: #### G LULS #### Point of Care testing , RBC,Urine 3-4 Normal 0-4 [facility] Comment on above: Order Comment: Name Collection Type:: Clean-Voided Midstream Performed By: #### G LULS #### Point of Care testing , Specificy [place],Urine 1.017 Normal 1.001-1.03 0 [facility] Comment on above: Order Comment: Name Collection Type:: Clean-Voided Midstream Performed By: #### G LULS #### Point of Care testing , Squamous Epithelial Cell,Urine 1-2 Normal 0-2 [facility] Comment on above: Order Comment: Name Collection Type:: Clean-Voided Midstream Performed By: #### G LULS #### Point of Care testing , Urobilinogen,Urine Normal Normal Normal [facility] Comment on above: Order Comment: Name Collection Type:: Clean-Voided Midstream Performed By: #### G LULS #### Point of Care testing , WBC,Urine 50-100 High 0-4 [facility] Comment on above: Order Comment: Name Collection Type:: Clean-Voided Midstream Performed By: #### G LULS #### Point of Care testing , Ketones Auto test strip (U) [Mass/Vol]Ordered By: Honey Rabago on 12-30-2021 Ketones (U) [Mass/Vol] Negative Negative [facility] Laboratory - UrinalysisOrder ed By: Honey Rabago on 12-30-2021 Hyaline casts LM Ql (Urine sed) 0-8 [LPF] 0-8 [facility] Nitrite Test strip Ql (U)Ord ered By: Honey Rabago on 12-30-2021 Nitrite Ql (U) Positive Negative [facility] Protein Auto test strip (U) [Mass/Vol]Ordered By: Honey Rabago on 12-30-2021 Protein (U) [Mass/Vol] Trace mg/dL Negative [facility] Specific gravity Auto test s trip (U) [Rel density]Ordered By: Honey Rabago on 12-30-2021 Specific gravity (U) [Rel density] 1.017 1.001-1.03 0 [facility] Squamous epithelial cells de tection in urine sediment by light microscopyOrdered By: Honey Rabago on 12-30-2021 Epithelial cells.squamous LM Ql (Urine sed) 1-2 [HPF] 0-2 [facility] Urine Cultureon 12-30-2021 Bacteria identified Cx Nom (U) ORGANISM: Escherichia coli (O:ESCCOL) [place] Count >100,000 Aerobic JIMMY Charge (NUC86) SUSCEPTIBILITY [...] RESISTANT TO ALL B-LACTAM DRUGS. PERFORMED BY: [facility] [place] [address] PATHOLOGIST [employer] FLIP GERMAN M.D. Normal [facility] Comment on above: Performed By: #### G LULS #### Point of Care testing , Urine bacteria detection by automated methodOrdered By: Honey Rabago on 12-30-2021 Bacteria Auto Ql (U) 1+ None Seen [facility] Urine clarity by refractomet ry automatedOrdered By: Honey Rabago on 12-30-2021 Clarity Refractometry automated (U) Cloudy Clear [facility] Urine glucose measurement by automated test strip (mass/volume)Ordered By: Honey Rabago on 12-30-2021 Glucose Auto test strip (U) [Mass/Vol] Normal mg/dL Normal [facility] Urine hemoglobin detection b y automated test stripOrdered By: Honey Rabago on 12-30-2021 Hemoglobin Auto test strip Ql (U) Negative Negative [facility] Urine leukocyte esterase det ection by automated test stripOrdered By: Honey Rabago on 12-30-2021 Leukocyte esterase Auto test strip Ql (U) 3+ Negative [facility] Urine pH measurement by auto mated test stripOrdered By: Honey Rabago on 12-30-2021 pH (U) 8.5 [pH] Normal 5.0-9.0 [facility] Comment on above: Order Comment: Name Collection Type:: Clean-Voided Midstream Performed By: #### G LULS #### Point of Care testing , Urine sediment crystal ident ification by light microscopyOrdered By: Honey Rabago on 12-30-2021 Crystals LM Nom (Urine sed) None seen [HPF] [facility] Urobilinogen Auto test strip (U) [Mass/Vol]Ordered By: Honey Rabago on 12-30-2021 Urobilinogen (U) [Mass/Vol] Normal mg/dL Normal [facility] PROTIMEon 12-21-2021 INR Coag (PPP) [Relative time] 2.34 {INR} Normal [facility] Comment on above: Performed By: #### P T #### [facility] [address] [place] [address] Dr. Joyce Strauss INR GUIDELINES SEE BELOW Normal [facility] Comment on above: Result Comment: GUDELIA RED INR: 2.0 - 3.0 CONDITIONS NOT LISTED BELOW 2.5 - 3.5 FOR PROSTHETIC HEART VALVE REPLACEMENT 2.5 - 3.5 RECURRENT THROMBOSIS Performed By: #### P T #### [facility] [address] [place] [address] Dr. Joyce Strauss PT Coag (PPP) [Time] 23.9 s Critically high 9.0-11.6 [facility] Comment on above: Performed By: #### P T #### [facility] [address] [address] [address] Joyce Strauss PROTIMEon 12-14-2021 INR GUIDELINES SEE BELOW Normal [facility] Comment on above: Result Comment: GUDELIA RED INR: 2.0 - 3.0 CONDITIONS NOT LISTED BELOW 2.5 - 3.5 FOR PROSTHETIC HEART VALVE REPLACEMENT 2.5 - 3.5 RECURRENT THROMBOSIS Performed By: #### P T #### [facility] [address] [place] [address] Dr. Joyce Strauss PT Coag (PPP) [Time] 20.6 s Critically high 9.0-11.6 [facility] Comment on above: Performed By: #### P T #### [facility] [address] [place] [address] Dr. Joyce Strauss Prothrombin Time INRon 12-14 Prothrombin Time INR Nort [facility] Other INR Coag (PPP) [Relative time] 2.00 {INR} Normal [facility] Other Comment on above: Performed By: #### P T #### [facility] [address] [address] [address] Joyce Strauss PROTIMEon 11-30-2021 INR GUIDELINES SEE BELOW Normal [facility] Comment on above: Result Comment: GUDELIA RED INR: 2.0 - 3.0 CONDITIONS NOT LISTED BELOW 2.5 - 3.5 FOR PROSTHETIC HEART VALVE REPLACEMENT 2.5 - 3.5 RECURRENT THROMBOSIS Performed By: #### P T #### [facility] [address] [address] [address] Joyce Strauss PT Coag (PPP) [Time] 25.9 s Critically high 9.0-11.6 [facility] Comment on above: Performed By: #### P T #### [facility] [address] [address] [address] Joyce Strauss Prothrombin Time INRon 11-30 Prothrombin Time INR Nort [facility] [employer] Other INR Coag (PPP) [Relative time] 2.55 {INR} Normal [facility] [employer] Other Comment on above: Performed By: #### P T #### [facility] [address] [place] [address] Dr. Joyce Strauss Glucose Glucometer (dC) [M ass/Vol]Ordered By: Alcides Moya on 11-25-2021 Glucose [Mass/Vol] 125 mg/dL [facility] Comment on above: Random Glucose Refer ence Range is dependent on time and content of last meal. Glucose of more than 200 mg/dL in a nonstressed, ambulatory subject supports the diagnosis of Diabetes Mellitus. Glucose Poct Glucometerson 0 11-25-2021 Glucose [Mass/Vol] 125 mg/dL Normal [facility] Comment on above: Result Comment: [place] Glucose Reference Range is dependent on time and content of last meal. Glucose of more than 200 mg/dL in a nonstressed, ambulatory subject supports the diagnosis of Diabetes Mellitus. PERFORMED BY: [address] [address] [place] [address] PATHOLOGIST [employer] FLIP GERMAN M.D. Performed By: #### G IAN #### Point of Care testing , Laboratory - CoagulationOrde red By: Alcides Moya on 11-25-2021 PT Coag (PPP) [Time] 25.5 s 9.0-12.9 [facility] Platelet poor plasma interna tional normalized ratio (INR) by coagulation assay (relatOrdered By: Alcides Moya on 11-25-2021 INR Coag (PPP) [Relative time] 2.2 {INR} [facility] Comment on above: INR Therapeutic Rang e [...] Coag (PPP) [Relative time] 2.2 {INR} Normal [facility] Comment on above: Order Comment: [...] heart valves: 3 - 4.5 PERFORMED BY: [facility] [address] [place] [address] PATHOLOGIST [employer] FLIP GERMAN M.D. Performed By: #### G IAN #### Point of Care testing , PT Coag (PPP) [Time] 25.5 s High 9.0-12.9 [facility] Comment on above: Order Comment: List the anticoagulant: COUMADIN/WARFARIN Performed By: #### G GELACIOLS #### Point of Care testing , Basic Metabolic Panelon 11-12 Anion gap [Moles/Vol] 11.8 mmol/L Normal 6.0-15.0 [facility] Comment on above: Performed By: #### G GELACIOLS #### Point of Care testing , Calcium [Mass/Vol] 8.7 mg/dL Normal 8.2-10.2 [facility] Comment on above: Performed By: #### G LULS #### Point of Care testing , Chloride [Moles/Vol] 103 mmol/L Normal 95-114 [facility] Comment on above: Performed By: #### G GELACIOLS #### Point of Care testing , CO2 [Moles/Vol] 28.1 mmol/L Normal 22.0-30.0 [facility] Comment on above: Performed By: #### G GELACIOLS #### Point of Care testing , Creatinine [Mass/Vol] 0.53 mg/dL Normal 0.44-1.03 [facility] Comment on above: Performed By: #### G GLEACIOLS #### Point of Care testing , Creatinine Clr Calc Pharmacy 64.37 [facility] Comment on above: Result Comment: PERF ORMED BY: [facility] [address] [place] [address] PATHOLOGIST [employer] FLIP GERMAN M.D. Performed By: #### G LULS #### Point of Care testing , Estimated GFR ( Trista > 60 [facility] Comment on above: Result Comment: GFR estimated reference range: According to KDOQI guidelines, <60 ml/min/1.73m2 is sufficient to diagnose a patient with chronic kidney disease. Performed By: #### G LULS #### Point of Care testing , Estimated GFR (Non- Am > 60 [facility] Comment on above: Performed By: #### G LULS #### Point of Care testing , Glucose [Mass/Vol] 138 mg/dL High 70-100 [facility] Comment on above: Result Comment: [place] om Glucose Reference Range is dependent on time and content of last meal. Glucose of more than 200 mg/dL in a nonstressed, ambulatory subject supports the diagnosis of Diabetes Mellitus. ADA recommended reference range Performed By: #### G LULS #### Point of Care testing , Potassium [Moles/Vol] 3.9 mmol/L Normal 3.5-5.1 [facility] Comment on above: Performed By: #### G LULS #### Point of Care testing , Sodium [Moles/Vol] 139 mmol/L Normal 136-146 [facility] Comment on above: Performed By: #### G LULS #### Point of Care testing , Urea nitrogen [Mass/Vol] 6 mg/dL Low 9-23 [facility] Comment on above: Performed By: #### G LULS #### Point of Care testing , Basophils Auto (Bld) [#/Vol] Ordered By: Elham Mendoza on 11-24-2021 Basophils (Bld) [#/Vol] N/A [facility] Basophils/100 WBC Auto (Bld) Ordered By: Elham Mendoza on 11-24-2021 Basophils/100 WBC (Bld) N/A [facility] Blood anisocytosis detection Ordered By: Elham Mendoza on 11-24-2021 Anisocytosis Ql (Bld) Moderate [facility] Blood hemoglobin measurement (mass/volume)Ordered By: Elham Mendoza on 11-24-2021 Hemoglobin (Bld) [Mass/Vol] 11.4 g/dL 11.8-15.4 [facility] Blood leukocytes automated c ount (number/volume)Ordered By: Elham Mendoza on 11-24-2021 WBC (Bld) [#/Vol] 6.0 10*3/uL 4.5-11.0 [facility] Creatinine and Glomerular fi ltration rate.predicted panel (S/P/Bld)Ordered By: Elham Mendoza on 11-24-2021 Creatinine [Mass/Vol] 0.53 mg/dL 0.44-1.03 [facility] Diff and CBCon 11-24-2021 Anisocytosis Ql (Bld) Moderate Normal [facility] Comment on above: Performed By: #### Ezra SOSA #### Point of Care testing , Eosinophils/100 WBC (Bld) 2 % Normal 1-3 [facility] Comment on above: Performed By: #### G IAN #### Point of Care testing , Erythrocyte distribution width (RBC) [Ratio] 18.4 % High 11.9-15.3 [facility] Comment on above: Performed By: #### G GELACIOLS #### Point of Care testing , Hematocrit (Bld) [Volume fraction] 34.9 % Normal 34.0-46.4 [facility] Comment on above: Performed By: #### Ezra SOSA #### Point of Care testing , Hemoglobin (Bld) [Mass/Vol] 11.4 g/dL Low 11.8-15.4 [facility] Comment on above: Performed By: #### Ezra SOSA #### Point of Care testing , Lymphocytes/100 WBC (Bld) 35 % Normal 18-42 [facility] Comment on above: Performed By: #### Ezra SOSA #### Point of Care testing , MCH (RBC) [Entitic mass] 29.9 pg Normal 24.7-34.3 [facility] Comment on above: Performed By: #### Ezra SOSA #### Point of Care testing , MCV (RBC) [Entitic vol] 91.2 fL Normal 80-100 [facility] Comment on above: Performed By: #### Ezra SOSA #### Point of Care testing , Mean Corpuscular HGB Conc 32.8 g/dL Normal 32.0-35.0 [facility] Comment on above: Performed By: #### Ezra SOSA #### Point of Care testing , Monocytes/100 WBC (Bld) 7 % Normal 2-11 [facility] Comment on above: Performed By: #### Ezra SOSA #### Point of Care testing , Myelocytes 1 % High 0-0 [facility] Comment on above: Performed By: #### Ezra SOSA #### Point of Care testing , Nucleated RBC/100 WBC (Bld) [Ratio] 0.5 % Normal 0-0.5 [facility] Comment on above: Result Comment: PERF ORMED BY: [address] [place] [address] PATHOLOGIST [employer] FLIP GERMAN M.D. Performed By: #### G GELACIOLS #### Point of Care testing , Platelet Estimate Normal Normal Normal [facility] Comment on above: Performed By: #### G GELACIOLS #### Point of Care testing , Platelet mean volume (Bld) [Entitic vol] 8.8 fL Normal 6.3-10.7 [facility] Comment on above: Performed By: #### G GELACIOLS #### Point of Care testing , Platelet Morphology Normal Normal Normal [facility] Comment on above: Result Comment: PERF ORMED BY: [facility] [address] [place] [address] PATHOLOGIST [employer] FLIP GERMAN M.D. Performed By: #### G GELACIOLS #### Point of Care testing , Platelets (Bld) [#/Vol] 285 10*3/uL Normal 150-450 [facility] Comment on above: Performed By: #### G GELACIOLS #### Point of Care testing , RBC (Bld) [#/Vol] 3.82 10*6/uL Normal 3.60-5.00 [facility] Comment on above: Performed By: #### G IAN #### Point of Care testing , Reactive Lymphocytes 1 % Normal 0-12 [facility] Comment on above: Performed By: #### G GELACIOLS #### Point of Care testing , Segmented neutrophils/100 WBC (Bld) 54 % Normal 50-70 [facility] Comment on above: Performed By: #### G GELACIOLS #### Point of Care testing , WBC (Bld) [#/Vol] 6.0 10*3/uL Normal 4.5-11.0 [facility] Comment on above: Performed By: #### G GELACIOLS #### Point of Care testing , Eosinophils Auto (Bld) [#/Vo l]Ordered By: Elham Mendoza on 11-24-2021 Eosinophils (Bld) [#/Vol] N/A [facility] Eosinophils/100 WBC Auto (Bl d)Ordered By: Elham Mendoza on 11-24-2021 Eosinophils/100 WBC (Bld) N/A [facility] Erythrocyte distribution wid th Auto (RBC) [Ratio]Ordered By: Elham Mendoza on 11-24-2021 Erythrocyte distribution width (RBC) [Ratio] 18.4 % 11.9-15.3 [facility] Estimated glomerular filtrat ion rate (GFR) non- AmericanOrdered By: Elham Mendoza on 11-24-2021 GFR/1.73 sq M.predicted among non-blacks MDRD (S/P/Bld) [Vol rate/Area] > 60 mL/Min [facility] Glucose Poct Glucometerson 0 11-24-2021 Glucose [Mass/Vol] 139 mg/dL Normal [facility] Comment on above: Result Comment: [facility] Glucose Reference Range is dependent on time and content of last meal. Glucose of more than 200 mg/dL in a nonstressed, ambulatory subject supports the diagnosis of Diabetes Mellitus. PERFORMED BY: [address] [place] [address] PATHOLOGIST [employer] FLIP GERMAN M.D. Performed By: #### G LUCOLLIN #### Point of Care testing , Hematocrit Auto (Bld) [Volum e fraction]Ordered By: Elham Mendoza on 11-24-2021 Hematocrit (Bld) [Volume fraction] 34.9 % 34.0-46.4 [facility] Laboratory - Hematology and Cell countsOrdered By: Elham Mendoza on 11-24-2021 Nucleated RBC/100 WBC (Bld) [Ratio] 0.5 % 0-0.5 [facility] Lymphocytes Auto (Bld) [#/Vo l]Ordered By: Elham Mendoza on 11-24-2021 Lymphocytes (Bld) [#/Vol] N/A [facility] Lymphocytes/100 WBC Auto (Bl d)Ordered By: Elham Mendoza on 11-24-2021 Lymphocytes/100 WBC (Bld) N/A [facility] Lymphocytes/100 WBC (Bld) 35 % 18-42 [facility] Lymphocytes/100 WBC Manual c nt (Bld)Ordered By: Elham Mendoza on 11-24-2021 Lymphocytes/100 WBC (Bld) 1 % 0-12 [facility] MCH Auto (RBC) [Entitic mass ]Ordered By: Elham Mendoza on 11-24-2021 MCH (RBC) [Entitic mass] 29.9 pg 24.7-34.3 [facility] MCHC Auto (RBC) [Mass/Vol]Or dered By: Elham Mendoza on 11-24-2021 MCHC (RBC) [Mass/Vol] 32.8 g/dL 32.0-35.0 [facility] MCV Auto (RBC) [Entitic vol] Ordered By: Elham Mendoza on 11-24-2021 MCV (RBC) [Entitic vol] 91.2 fL 80-100 [facility] Monocyte %Ordered By: Elham Mendoza on 11-24-2021 Monocytes/100 WBC (Bld) 2 % 1-3 [facility] Monocytes Auto (Bld) [#/Vol] Ordered By: Elham Mendoza on 11-24-2021 Monocytes (Bld) [#/Vol] N/A [facility] Monocytes/100 WBC Auto (Bld) Ordered By: Elham Mendoza on 11-24-2021 Monocytes/100 WBC (Bld) N/A [facility] Monocytes/100 WBC Manual cnt (Bld)Ordered By: Elham Mendoza on 11-24-2021 Monocytes/100 WBC (Bld) 7 % 2-11 [facility] Myelocytes/100 WBC Manual cn t (Bld)Ordered By: Elham Mendoza on 11-24-2021 Myelocytes/100 WBC (Bld) 1 % 0-0 [facility] Neutrophils Auto (Bld) [#/Vo l]Ordered By: Elham Mendoza on 11-24-2021 Neutrophils (Bld) [#/Vol] N/A [facility] Neutrophils/100 WBC Auto (Bl d)Ordered By: Elham Mendoza on 11-24-2021 Neutrophils/100 WBC (Bld) N/A [facility] No Panel InformationOrdered By: Elham Mendoza on 11-24-2021 Estimated GFR () > 60 mL/Min [facility] Comment on above: GFR estimated refere nce range: According to KDOQI guidelines, <60 ml/min/1.73m2 is sufficient to diagnose a patient with chronic kidney disease. Pharmacy Creatinine Clearance (Chem 64.37 [facility] Platelet Estimate Normal Normal [facility] Platelet Morphology Comment Normal Normal [facility] Platelet mean volume Auto (B ld) [Entitic vol]Ordered By: Elham Mendoza on 11-24-2021 Platelet mean volume (Bld) [Entitic vol] 8.8 fL 6.3-10.7 [facility] Platelets Auto (Bld) [#/Vol] Ordered By: Elham Mendoza on 11-24-2021 Platelets (Bld) [#/Vol] 285 10*3/uL 150-450 [facility] Prothrombin Time INRon 11-24 INR Coag (PPP) [Relative time] 2.6 {INR} Normal [facility] Comment on above: Order Comment: FIRST SPECIMEN [...] heart valves: 3 - 4.5 PERFORMED BY: [facility] [address] [place] [address] PATHOLOGIST [employer] FLIP EGRMAN M.D. Performed By: #### P T ####[facility] [id number] [place] [address] [facility] PT Coag (PPP) [Time] 29.3 s High 9.0-12.9 [facility] Comment on above: Order Comment: FIRST SPECIMEN HEMOLYZED Performed By: #### P T ####[facility] [id number] [place] [address] [facility] RBC Auto (Bld) [#/Vol]Ordere d By: Elham Mendoza on 11-24-2021 RBC (Bld) [#/Vol] 3.82 10*6/uL 3.60-5.00 [facility] RBC morphologyOrdered By: Pramod Mendoza on 11-24-2021 RBC morphology finding Nom (Bld) N/A [facility] Segmented neutrophils/100 WB C Manual cnt (Bld)Ordered By: Elham Mendoza on 11-24-2021 Segmented neutrophils/100 WBC (Bld) 54 % 50-70 [facility] Serum or plasma anion gap de terminationOrdered By: Elham Mendoza on 11-24-2021 Anion gap [Moles/Vol] 11.8 mmol/L 6.0-15.0 [facility] Serum or plasma calcium alondra urement (mass/volume)Ordered By: Elham Mendoza on 11-24-2021 Calcium [Mass/Vol] 8.7 mg/dL 8.2-10.2 [facility] Serum or plasma chloride link surement (moles/volume)Ordered By: Elham Mendoza on 11-24-2021 Chloride [Moles/Vol] 103 mmol/L 95-114 [facility] Serum or plasma glucose alondra urement (mass/volume)Ordered By: Elham Mendoza on 11-24-2021 Glucose [Mass/Vol] 138 mg/dL 70-100 [facility] Comment on above: ADA recommended refe [...] on 11-24-2021 Potassium [Moles/Vol] 3.9 mmol/L 3.5-5.1 [facility] Serum or plasma sodium measu rement (moles/volume)Ordered By: Elham Mendoza on 11-24-2021 Sodium [Moles/Vol] 139 mmol/L 136-146 [facility] Serum or plasma total carbon dioxide measurement (moles/volume)Ordered By: Elham Mendoza on 11-24-2021 CO2 [Moles/Vol] 28.1 mmol/L 22.0-30.0 [facility] Serum or plasma urea nitroge n measurement (mass/volume)Ordered By: Elham Mendoza on 11-24-2021 Urea nitrogen [Mass/Vol] 6 mg/dL - [facility] Glucose Poct Glucometerson 0 11-23-2021 Glucose [Mass/Vol] 157 mg/dL Normal [facility] Comment on above: Result Comment: [facility] Glucose Reference Range is dependent on time and content of last meal. Glucose of more than 200 mg/dL in a nonstressed, ambulatory subject supports the diagnosis of Diabetes Mellitus. PERFORMED BY: [facility] [address] [place] [address] PATHOLOGIST [employer] FLIP GERMAN M.D. Performed By: #### G LULS #### Point of Care testing , Prothrombin Time INRon 11-23 INR Coag (PPP) [Relative time] 2.9 {INR} Normal [facility] Comment on above: Order Comment: [...] heart valves: 3 - 4.5 PERFORMED BY: [facility] [address] [place] [address] PATHOLOGIST [employer] FLIP GERMAN M.D. Performed By: #### G LULS #### Point of Care testing , PT Coag (PPP) [Time] 33.5 s High 9.0-12.9 [facility] Comment on above: Order Comment: List the anticoagulant: COUMADIN/WARFARIN Performed By: #### G LULS #### Point of Care testing , Glucose Poct Glucometerson 0 11-22-2021 Glucose [Mass/Vol] 161 mg/dL Normal [facility] Comment on above: Result Comment: [place] Glucose Reference Range is dependent on time and content of last meal. Glucose of more than 200 mg/dL in a nonstressed, ambulatory subject supports the diagnosis of Diabetes Mellitus. PERFORMED BY: [address] [place] [address] PATHOLOGIST [employer] FLIP GERMAN M.D. Performed By: #### G LULS #### Point of Care testing , Glucose [Mass/Vol] 112 mg/dL Normal [facility] Comment on above: Result Comment: [place] Glucose Reference Range is dependent on time and content of last meal. Glucose of more than 200 mg/dL in a nonstressed, ambulatory subject supports the diagnosis of Diabetes Mellitus. PERFORMED BY: [facility] [address] [address] PATHOLOGIST [employer] FLIP GERMAN M.D. Performed By: #### G LULS #### Point of Care testing , Prothrombin Time INRon 11-22 INR Coag (PPP) [Relative time] 2.1 {INR} Normal [facility] Comment on above: Order Comment: [...] heart valves: 3 - 4.5 PERFORMED BY: [facility] [address] [place] [address] PATHOLOGIST [employer] FLIP GERMAN M.D. Performed By: #### G LULS #### Point of Care testing , PT Coag (PPP) [Time] 24.4 s High 9.0-12.9 [facility] Comment on above: Order Comment: List the anticoagulant: COUMADIN/WARFARIN Performed By: #### G LULS #### Point of Care testing , Glucose Poct Glucometerson 0 11-21-2021 Commemt1 Glu2: Cleaned Meter Normal [facility] Comment on above: Result Comment: PERF ORMED BY: [facility] [address] [place] [address] PATHOLOGIST [employer] FLIP GERMAN M.D. Performed By: #### G LULS #### Point of Care testing , Glucose [Mass/Vol] 130 mg/dL Normal [facility] Comment on above: Result Comment: [facility] Glucose Reference Range is dependent on time and content of last meal. Glucose of more than 200 mg/dL in a nonstressed, ambulatory subject supports the diagnosis of Diabetes Mellitus. Performed By: #### G LULS #### Point of Care testing , No Panel InformationOrdered By: Alcides Moya on 11-21-2021 Bedside Glucose Comment Glu2: cleaned meter [facility] Prothrombin Time INRon 11-21 INR Coag (PPP) [Relative time] 1.9 {INR} Normal [facility] Comment on above: Order Comment: [...] heart valves: 3 - 4.5 PERFORMED BY: [facility] [address] [place] [address] PATHOLOGIST [employer] FLIP GERMAN M.D. Performed By: #### G LULS #### Point of Care testing , PT Coag (PPP) [Time] 21.8 s High 9.0-12.9 [facility] Comment on above: Order Comment: List the anticoagulant: COUMADIN/WARFARIN Performed By: #### G LULS #### Point of Care testing , Glucose Poct Glucometerson 0 11-20-2021 Commemt1 Glu2: Cleaned Meter Normal [facility] Comment on above: Result Comment: PERF ORMED BY: [address] [place] [address] PATHOLOGIST [employer] FLIP GERMAN M.D. Performed By: #### G LULS #### Point of Care testing , Glucose [Mass/Vol] 112 mg/dL Normal [facility] Comment on above: Result Comment: [place] om Glucose Reference Range is dependent on time and content of last meal. Glucose of more than 200 mg/dL in a nonstressed, ambulatory subject supports the diagnosis of Diabetes Mellitus. Performed By: #### G LULS #### Point of Care testing , Glucose [Mass/Vol] 129 mg/dL Normal [facility] Comment on above: Result Comment: [place] om Glucose Reference Range is dependent on time and content of last meal. Glucose of more than 200 mg/dL in a nonstressed, ambulatory subject supports the diagnosis of Diabetes Mellitus. PERFORMED BY: [address] [place] [address] PATHOLOGIST [employer] FLIP GERMAN M.D. Performed By: #### G LULS #### Point of Care testing , Prothrombin Time INRon 11-20 INR Coag (PPP) [Relative time] 2.3 {INR} Normal [facility] Comment on above: Order Comment: [...] heart valves: 3 - 4.5 PERFORMED BY: [address] [place] [address] PATHOLOGIST [employer] FLIP GERMAN M.D. Performed By: #### G LULS #### Point of Care testing , PT Coag (PPP) [Time] 26.6 s High 9.0-12.9 [facility] Comment on above: Order Comment: List the anticoagulant: COUMADIN/WARFARIN Performed By: #### G IAN #### Point of Care testing , CT biopsyOrdered By: Amanda viveros on 11-19-2021 Transferrin [Mass/Vol] 173 mg/dL 180-380 [facility] Glucose Poct Glucometerson 0 11-19-2021 Glucose [Mass/Vol] 122 mg/dL Normal [facility] Comment on above: Result Comment: [facility] Glucose Reference Range is dependent on time and content of last meal. Glucose of more than 200 mg/dL in a nonstressed, ambulatory subject supports the diagnosis of Diabetes Mellitus. PERFORMED BY: [facility] [address] [place] [address] PATHOLOGIST [employer]PER FLIP GERAMN M.D. Performed By: #### G IAN #### Point of Care testing , Iron [Mass/volume] in Serum or PlasmaOrdered By: Amanda Jaimes on 11-19-2021 Iron [Mass/Vol] 56 ug/dL 40-150 [facility] Iron and TIBC Profileon % Iron Saturation 23.0 % Normal 20-50 [facility] Comment on above: Performed By: #### F E and TIBC ####[address] [place] [address] [facility] Iron [Mass/Vol] 56 ug/dL Normal 40-150 [facility] Comment on above: Performed By: #### F E and TIBC ####[address] [place] [address] [facility] Total Iron Binding Capacity 242 ug/dL Low 255-450 [facility] Comment on above: Performed By: #### F E and TIBC ####[place] [id number] [facility] Transferrin [Mass/Vol] 173 mg/dL Low 180-380 [facility] Comment on above: Result Comment: PERF ORMED BY: [facility] [address] [place] [address] PATHOLOGIST [employer] FLIP GERMAN M.D. Performed By: #### F E and TIBC ####[address] [place] [address] [facility] Iron binding capacity [Mass/ volume] in Serum or PlasmaOrdered By: Amanda Jaimes on 11-19-2021 Iron binding capacity [Mass/Vol] 242 ug/dL 255-450 [facility] Iron saturation [Mass Fracti on] in Serum or PlasmaOrdered By: Amanda Jaimes on 11-19-2021 Iron saturation [Mass fraction] 23.0 % 20-50 [facility] Prothrombin Time INRon 11-19 INR Coag (PPP) [Relative time] 2.5 {INR} Normal [facility] Comment on above: Order Comment: [...] heart valves: 3 - 4.5 PERFORMED BY: [facility] [address] [place] [id number] PATHOLOGIST [employer] FLIP GERMAN M.D. Performed By: #### P T ####[address] [place] [address] [facility] PT Coag (PPP) [Time] 28.4 s High 9.0-12.9 [facility] Comment on above: Order Comment: List the anticoagulant: COUMADIN/WARFARIN Performed By: #### P T ####[address] [place] [address] [facility] Basic Metabolic Panelon 0 Anion gap [Moles/Vol] 12.3 mmol/L Normal 6.0-15.0 [facility] Comment on above: Performed By: #### G LULS #### Point of Care testing , Calcium [Mass/Vol] 8.8 mg/dL Normal 8.2-10.2 [facility] Comment on above: Performed By: #### G LULS #### Point of Care testing , Chloride [Moles/Vol] 101 mmol/L Normal 95-114 [facility] Comment on above: Performed By: #### G LULS #### Point of Care testing , CO2 [Moles/Vol] 30.7 mmol/L High 22.0-30.0 [facility] Comment on above: Performed By: #### G LULS #### Point of Care testing , Creatinine [Mass/Vol] 0.53 mg/dL Normal 0.44-1.03 [facility] Comment on above: Performed By: #### G LULS #### Point of Care testing , Creatinine Clr Calc Pharmacy 64.26 [facility] Comment on above: Result Comment: PERF ORMED BY: [facility] [address] [place] [address] PATHOLOGIST [employer]PER FLIP GERMAN M.D. Performed By: #### G LULS #### Point of Care testing , Estimated GFR ( Trista > 60 [facility] Comment on above: Result Comment: GFR estimated reference range: According to KDOQI guidelines, <60 ml/min/1.73m2 is sufficient to diagnose a patient with chronic kidney disease. Performed By: #### G LULS #### Point of Care testing , Estimated GFR (Non- Am > 60 [facility] Comment on above: Performed By: #### G LULS #### Point of Care testing , Glucose [Mass/Vol] 131 mg/dL High 70-100 [facility] Comment on above: Result Comment: [place] om Glucose Reference Range is dependent on time and content of last meal. Glucose of more than 200 mg/dL in a nonstressed, ambulatory subject supports the diagnosis of Diabetes Mellitus. ADA recommended reference range Performed By: #### G LULS #### Point of Care testing , Potassium [Moles/Vol] 4.0 mmol/L Normal 3.5-5.1 [facility] Comment on above: Performed By: #### G LULS #### Point of Care testing , Sodium [Moles/Vol] 140 mmol/L Normal 136-146 [facility] Comment on above: Performed By: #### G IAN #### Point of Care testing , Urea nitrogen [Mass/Vol] 8 mg/dL Low 9-23 [facility] Comment on above: Performed By: #### G GELACIOLS #### Point of Care testing , Complete Blood Count Auto Di ffon 11-18-2021 Basophils (Bld) [#/Vol] 0.0 10*3/uL Normal 0.0-0.2 [facility] Comment on above: Result Comment: PERF ORMED BY: [facility] [address] [place] [address] PATHOLOGIST [employer] FLIP GERMAN M.D. Performed By: #### G IAN #### Point of Care testing , Basophils/100 WBC (Bld) 0.5 % Normal . [facility] Comment on above: Performed By: #### G IAN #### Point of Care testing , Eosinophils (Bld) [#/Vol] 0.2 10*3/uL Normal 0.0-0.45 [facility] Comment on above: Performed By: #### G IAN #### Point of Care testing , Eosinophils/100 WBC (Bld) 4.0 % Normal . [facility] Comment on above: Performed By: #### G IAN #### Point of Care testing , Erythrocyte distribution width (RBC) [Ratio] 17.8 % High 11.9-15.3 [facility] Comment on above: Performed By: #### G IAN #### Point of Care testing , Hematocrit (Bld) [Volume fraction] 33.3 % Low 34.0-46.4 [facility] Comment on above: Performed By: #### G GELACIOLS #### Point of Care testing , Hemoglobin (Bld) [Mass/Vol] 10.9 g/dL Low 11.8-15.4 [facility] Comment on above: Performed By: #### G IAN #### Point of Care testing , Lymphocytes (Bld) [#/Vol] 2.2 10*3/uL Normal 1.00-4.8 [facility] Comment on above: Performed By: #### G GELACIOLS #### Point of Care testing , Lymphocytes/100 WBC (Bld) 40.3 % Normal . [facility] Comment on above: Performed By: #### G GELACIOLS #### Point of Care testing , MCH (RBC) [Entitic mass] 29.8 pg Normal 24.7-34.3 [facility] Comment on above: Performed By: #### G LULS #### Point of Care testing , MCV (RBC) [Entitic vol] 91.3 fL Normal 80-100 [facility] Comment on above: Performed By: #### G GELACIOLS #### Point of Care testing , Mean Corpuscular HGB Conc 32.6 g/dL Normal 32.0-35.0 [facility] Comment on above: Performed By: #### G GELACIOLS #### Point of Care testing , Monocytes (Bld) [#/Vol] 0.7 10*3/uL Normal 0.0-0.8 [facility] Comment on above: Performed By: #### G GELACIOLS #### Point of Care testing , Monocytes/100 WBC (Bld) 12.3 % Normal . [facility] Comment on above: Performed By: #### G GELACIOLS #### Point of Care testing , Neutrophils (Bld) [#/Vol] 2.3 10*3/uL Normal 1.8-7.7 [facility] Comment on above: Performed By: #### G LULS #### Point of Care testing , Neutrophils/100 WBC (Bld) 42.9 % Normal . [facility] Comment on above: Performed By: #### G GELACIOLS #### Point of Care testing , Nucleated RBC/100 WBC (Bld) [Ratio] 0.1 % Normal 0-0.5 [facility] Comment on above: Performed By: #### G LULS #### Point of Care testing , Platelet mean volume (Bld) [Entitic vol] 8.5 fL Normal 6.3-10.7 [facility] Comment on above: Performed By: #### G LULS #### Point of Care testing , Platelets (Bld) [#/Vol] 224 10*3/uL Normal 150-450 [facility] Comment on above: Performed By: #### G LULS #### Point of Care testing , RBC (Bld) [#/Vol] 3.65 10*6/uL Normal 3.60-5.00 [facility] Comment on above: Performed By: #### G GELACIOLS #### Point of Care testing , WBC (Bld) [#/Vol] 5.5 10*3/uL Normal 4.5-11.0 [facility] Comment on above: Performed By: #### G GELACIOLS #### Point of Care testing , Glucose Poct Glucometerson 0 11-18-2021 Glucose [Mass/Vol] 134 mg/dL Normal [facility] Comment on above: Result Comment: [facility] Glucose Reference Range is dependent on time and content of last meal. Glucose of more than 200 mg/dL in a nonstressed, ambulatory subject supports the diagnosis of Diabetes Mellitus. PERFORMED BY: [facility] [address] [place] [address] PATHOLOGIST [employer]PER FLIP GERMAN M.D. Performed By: #### G LULS #### Point of Care testing , Prothrombin Time INRon 11-18 INR Coag (PPP) [Relative time] 2.5 {INR} Normal [facility] Comment on above: Order Comment: [...] heart valves: 3 - 4.5 PERFORMED BY: [facility] [address] [place] [address] PATHOLOGIST [employer]PER FLIP GERMAN M.D. Performed By: #### G LULS #### Point of Care testing , PT Coag (PPP) [Time] 28.3 s High 9.0-12.9 [facility] Comment on above: Order Comment: List the anticoagulant: COUMADIN/WARFARIN Performed By: #### G LULS #### Point of Care testing , Glucose Poct Glucometerson 0 11-17-2021 Glucose [Mass/Vol] 124 mg/dL Normal [facility] Comment on above: Result Comment: [facility] Glucose Reference Range is dependent on time and content of last meal. Glucose of more than 200 mg/dL in a nonstressed, ambulatory subject supports the diagnosis of Diabetes Mellitus. PERFORMED BY: [facility] [address] [place] [id number] PATHOLOGIST [employer]KEEPER FLIP GERMAN M.D. Performed By: #### G LULS #### Point of Care testing , Prothrombin Time INRon 11-17 INR Coag (PPP) [Relative time] 2.7 {INR} Normal [facility] Comment on above: Order Comment: [...] heart valves: 3 - 4.5 PERFORMED BY: [facility] [address] [place] [address] PATHOLOGIST [employer] FLIP GERMAN M.D. Performed By: #### P T ####[address] [address] [facility] PT Coag (PPP) [Time] 30.8 s High 9.0-12.9 [facility] Comment on above: Order Comment: List the anticoagulant: COUMADIN/WARFARIN Performed By: #### P T ####[address] [address] [facility] Glucose Poct Glucometerson 0 11-16-2021 Commemt1 Glu2: Cleaned Meter Normal [facility] Comment on above: Result Comment: PERF ORMED BY: [facility] [address] [place] [address] PATHOLOGIST [employer]PER FLIP GERMAN M.D. Performed By: #### G LULS #### Point of Care testing , Glucose [Mass/Vol] 125 mg/dL Normal [facility] Comment on above: Result Comment: [place] om Glucose Reference Range is dependent on time and content of last meal. Glucose of more than 200 mg/dL in a nonstressed, ambulatory subject supports the diagnosis of Diabetes Mellitus. Performed By: #### G LULS #### Point of Care testing , Prothrombin Time INRon 11-16 INR Coag (PPP) [Relative time] 2.9 {INR} Normal [facility] Comment on above: Order Comment: [...] heart valves: 3 - 4.5 PERFORMED BY: [place] [place] [address] PATHOLOGIST [employer] FLIP GERMAN M.D. Performed By: #### G LULS #### Point of Care testing , PT Coag (PPP) [Time] 32.9 s High 9.0-12.9 [facility] Comment on above: Order Comment: List the anticoagulant: COUMADIN/WARFARIN Performed By: #### G LULS #### Point of Care testing , Glucose Poct Glucometerson 0 11-15-2021 Glucose [Mass/Vol] 145 mg/dL Normal [facility] Comment on above: Result Comment: [place] om Glucose Reference Range is dependent on time and content of last meal. Glucose of more than 200 mg/dL in a nonstressed, ambulatory subject supports the diagnosis of Diabetes Mellitus. PERFORMED BY: [address] [place] [address] PATHOLOGIST [employer]KEEPER FLIP GERMAN M.D. Performed By: #### G LULS #### Point of Care testing , Commemt1 Glu2: Cleaned Meter [facility] Comment on above: Result Comment: PERF ORMED BY: [address] [place] [address] PATHOLOGIST [employer]PER FLIP GERMAN M.D. Performed By: #### G LULS #### Point of Care testing , Glucose [Mass/Vol] 131 mg/dL Normal [facility] Comment on above: Result Comment: [place] om Glucose Reference Range is dependent on time and content of last meal. Glucose of more than 200 mg/dL in a nonstressed, ambulatory subject supports the diagnosis of Diabetes Mellitus. Performed By: #### G LULS #### Point of Care testing , Commemt1 Glu2: Cleaned Meter [facility] Comment on above: Result Comment: PERF ORMED BY: [address] [place] [address] PATHOLOGIST [employer]PER FLIP GERMAN M.D. Performed By: #### G LULS #### Point of Care testing , Glucose [Mass/Vol] 201 mg/dL Normal [facility] Comment on above: Result Comment: [place] om Glucose Reference Range is dependent on time and content of last meal. Glucose of more than 200 mg/dL in a nonstressed, ambulatory subject supports the diagnosis of Diabetes Mellitus. Performed By: #### G LULS #### Point of Care testing , Commemt1 Glu2: Cleaned Meter [facility] Comment on above: Result Comment: PERF ORMED BY: [address] [place] [address] PATHOLOGIST [employer] FLIP GERMAN M.D. Performed By: #### G LULS #### Point of Care testing , Glucose [Mass/Vol] 184 mg/dL Normal [facility] Comment on above: Result Comment: [place] om Glucose Reference Range is dependent on time and content of last meal. Glucose of more than 200 mg/dL in a nonstressed, ambulatory subject supports the diagnosis of Diabetes Mellitus. Performed By: #### G LULS #### Point of Care testing , Prothrombin Time INRon 11-15 INR Coag (PPP) [Relative time] 2.4 {INR} Normal [facility] Comment on above: Order Comment: [...] heart valves: 3 - 4.5 PERFORMED BY: [facility] [address] [place] [address] PATHOLOGIST [employer] FLIP GERMAN M.D. Performed By: #### G LULS #### Point of Care testing , PT Coag (PPP) [Time] 27.8 s High 9.0-12.9 [facility] Comment on above: Order Comment: List the anticoagulant: COUMADIN/WARFARIN Performed By: #### G LULS #### Point of Care testing , Glucose Poct Glucometerson 0 11-14-2021 Commemt1 Glu2: Cleaned Meter Normal [facility] Comment on above: Result Comment: PERF ORMED BY: [facility] [address] [place] [address] PATHOLOGIST [employer]PER FLIP GERMAN M.D. Performed By: #### G LULS #### Point of Care testing , Glucose [Mass/Vol] 152 mg/dL Normal [facility] Comment on above: Result Comment: [facility] Glucose Reference Range is dependent on time and content of last meal. Glucose of more than 200 mg/dL in a nonstressed, ambulatory subject supports the diagnosis of Diabetes Mellitus. Performed By: #### G LULS #### Point of Care testing , Glucose [Mass/Vol] 179 mg/dL Normal [facility] Comment on above: Result Comment: [facility] Glucose Reference Range is dependent on time and content of last meal. Glucose of more than 200 mg/dL in a nonstressed, ambulatory subject supports the diagnosis of Diabetes Mellitus. PERFORMED BY: [address] [place] [address] PATHOLOGIST [employer] FLIP GERMAN M.D. Performed By: #### G LULS #### Point of Care testing , Glucose [Mass/Vol] 211 mg/dL Normal [facility] Comment on above: Result Comment: [facility] Glucose Reference Range is dependent on time and content of last meal. Glucose of more than 200 mg/dL in a nonstressed, ambulatory subject supports the diagnosis of Diabetes Mellitus. PERFORMED BY: [address] [place] [address] PATHOLOGIST [employer] FLIP GERMAN M.D. Performed By: #### G LULS #### Point of Care testing , Glucose [Mass/Vol] 184 mg/dL Normal [facility] Comment on above: Result Comment: [facility] Glucose Reference Range is dependent on time and content of last meal. Glucose of more than 200 mg/dL in a nonstressed, ambulatory subject supports the diagnosis of Diabetes Mellitus. PERFORMED BY: [address] [place] [address] PATHOLOGIST [employer]PER FLIP GERMAN M.D. Performed By: #### G LULS #### Point of Care testing , Prothrombin Time INRon 11-14 INR Coag (PPP) [Relative time] 2.2 {INR} Normal [facility] Comment on above: Order Comment: [...] heart valves: 3 - 4.5 PERFORMED BY: [address] [place] [place] [address] PATHOLOGIST [employer] FLIP GERMAN M.D. Performed By: #### G LULS #### Point of Care testing , PT Coag (PPP) [Time] 25.7 s High 9.0-12.9 [facility] Comment on above: Order Comment: List the anticoagulant: COUMADIN/WARFARIN Performed By: #### G LULS #### Point of Care testing , Glucose Glucometer (BldC) [M ass/Vol]Ordered By: Alcides Moya on 11-13-2021 Glucose [Mass/Vol] 146 mg/dL [facility] Comment on above: Random Glucose Refer ence Range is dependent on time and content of last meal. Glucose of more than 200 mg/dL in a nonstressed, ambulatory subject supports the diagnosis of Diabetes Mellitus. Glucose Poct Glucometerson 0 11-13-2021 Glucose [Mass/Vol] 146 mg/dL Normal [facility] Comment on above: Result Comment: [place] om Glucose Reference Range is dependent on time and content of last meal. Glucose of more than 200 mg/dL in a nonstressed, ambulatory subject supports the diagnosis of Diabetes Mellitus. PERFORMED BY: [address] [place] [address] PATHOLOGIST [employer] FLIP GERMAN M.D. Performed By: #### G LULS ####Point of Care testing, Commemt1 Glu2: Cleaned Meter [facility] Comment on above: Result Comment: PERF ORMED BY: [facility] [address] [place] [id number] PATHOLOGIST [employer] FLIP GERMAN M.D. Performed By: #### G LULS ####Point of Care testing, Glucose [Mass/Vol] 128 mg/dL Normal [facility] [facility] Comment on above: Result Comment: [place] om Glucose Reference Range is dependent on time and content of last meal. Glucose of more than 200 mg/dL in a nonstressed, ambulatory subject supports the diagnosis of Diabetes Mellitus. Performed By: #### G LULS ####Point of Care testing, Commemt1 Glu2: Cleaned Meter [facility] Comment on above: Result Comment: PERF ORMED BY: [place] [address] PATHOLOGIST [employer] FLIP GERMAN M.D. Performed By: #### G LULS #### Point of Care testing , Glucose [Mass/Vol] 145 mg/dL Normal [facility] Comment on above: Result Comment: [place] om Glucose Reference Range is dependent on time and content of last meal. Glucose of more than 200 mg/dL in a nonstressed, ambulatory subject supports the diagnosis of Diabetes Mellitus. Performed By: #### G LULS #### Point of Care testing , Commemt1 Glu2: Cleaned Meter [facility] Comment on above: Result Comment: PERF ORMED BY: [place] [address] PATHOLOGIST [employer] FLIP GERMAN M.D. Performed By: #### G LULS #### Point of Care testing , Glucose [Mass/Vol] 122 mg/dL Normal [facility] Comment on above: Result Comment: [place] om Glucose Reference Range is dependent on time and content of last meal. Glucose of more than 200 mg/dL in a nonstressed, ambulatory subject supports the diagnosis of Diabetes Mellitus. Performed By: #### G LULS #### Point of Care testing , Glucose [Mass/Vol] 116 mg/dL Normal [facility] Comment on above: Result Comment: [place] om Glucose Reference Range is dependent on time and content of last meal. Glucose of more than 200 mg/dL in a nonstressed, ambulatory subject supports the diagnosis of Diabetes Mellitus. PERFORMED BY: [place] [address] PATHOLOGIST [employer] FLIP GERMAN M.D. Performed By: #### G LULS ####Point of Care testing, No Panel InformationOrdered By: Alcides Moya on 11-13-2021 Bedside Glucose Comment Glu2: cleaned meter [facility] Platelet poor plasma interna tional normalized ratio (INR) by coagulation assay (relatOrdered By: Alcides Moya on 09-02-2022 INR Coag (PPP) [Relative time] 2.6 {INR} Normal [facility] Comment on above: INR Therapeutic Rang e [...] heart valves: 3 - 4.5 PERFORMED BY: [facility] [address] [place] [id number] PATHOLOGIST [employer] FLIP GERMAN M.D. Performed By: #### P T ####[place] [id number] [facility] Prothrombin Time INROrdered By: Alcides Moya on 11-13-2021 PT Coag (PPP) [Time] 29.5 s High 9.0-12.9 [facility] Comment on above: Order Comment: List the anticoagulant: COUMADIN/WARFARIN Performed By: #### P T ####[address] Albumin [Mass/volume] in Ser um or PlasmaOrdered By: Alcides Moya on 11-12-2021 Albumin [Mass/Vol] 3.1 g/dL 3.2-5.5 [facility] Basophils Auto (Bld) [#/Vol] Ordered By: Alcides Moya on 11-12-2021 Basophils (Bld) [#/Vol] 0.0 10*3/uL 0.0-0.2 [facility] Basophils/100 WBC Auto (Bld) Ordered By: Alcides Moya on 11-12-2021 Basophils/100 WBC (Bld) 0.5 % . [facility] Blood hemoglobin measurement (mass/volume)Ordered By: Alcides Griffin on 11-12-2021 Hemoglobin (Bld) [Mass/Vol] 12.5 g/dL 11.8-15.4 [facility] Blood leukocytes automated c ount (number/volume)Ordered By: Alcides Moya on 11-12-2021 WBC (Bld) [#/Vol] 5.0 10*3/uL 4.5-11.0 [facility] Complete Blood Count Auto Di ffon 11-12-2021 Basophils (Bld) [#/Vol] 0.0 10*3/uL Normal 0.0-0.2 [facility] Comment on above: Result Comment: PERF ORMED BY: [facility] [address] [place] [address] PATHOLOGIST [employer] FLIP GERMAN M.D. Performed By: #### G LULS #### Point of Care testing , Basophils/100 WBC (Bld) 0.5 % Normal . [facility] Comment on above: Performed By: #### G LULS #### Point of Care testing , Eosinophils (Bld) [#/Vol] 0.2 10*3/uL Normal 0.0-0.45 [facility] Comment on above: Performed By: #### G LULS #### Point of Care testing , Eosinophils/100 WBC (Bld) 3.8 % Normal . [facility] Comment on above: Performed By: #### G LULS #### Point of Care testing , Erythrocyte distribution width (RBC) [Ratio] 17.3 % High 11.9-15.3 [facility] Comment on above: Performed By: #### G LULS #### Point of Care testing , Hematocrit (Bld) [Volume fraction] 38.9 % Normal 34.0-46.4 [facility] Comment on above: Performed By: #### G LULS #### Point of Care testing , Hemoglobin (Bld) [Mass/Vol] 12.5 g/dL Normal 11.8-15.4 [facility] Comment on above: Performed By: #### G LULS #### Point of Care testing , Lymphocytes (Bld) [#/Vol] 2.0 10*3/uL Normal 1.00-4.8 [facility] Comment on above: Performed By: #### G GELACIOLS #### Point of Care testing , Lymphocytes/100 WBC (Bld) 39.7 % Normal . [facility] Comment on above: Performed By: #### G GELACIOLS #### Point of Care testing , MCH (RBC) [Entitic mass] 29.2 pg Normal 24.7-34.3 [facility] Comment on above: Performed By: #### G GELACIOLS #### Point of Care testing , MCV (RBC) [Entitic vol] 90.6 fL Normal 80-100 [facility] Comment on above: Performed By: #### G GELACIOLS #### Point of Care testing , Mean Corpuscular HGB Conc 32.2 g/dL Normal 32.0-35.0 [facility] Comment on above: Performed By: #### Ezra BRIZUELALS #### Point of Care testing , Monocytes (Bld) [#/Vol] 0.5 10*3/uL Normal 0.0-0.8 [facility] Comment on above: Performed By: #### Ezra BRIZUELALS #### Point of Care testing , Monocytes/100 WBC (Bld) 10.1 % Normal . [facility] Comment on above: Performed By: #### G IAN #### Point of Care testing , Neutrophils (Bld) [#/Vol] 2.3 10*3/uL Normal 1.8-7.7 [facility] Comment on above: Performed By: #### G GELACIOLS #### Point of Care testing , Neutrophils/100 WBC (Bld) 45.9 % Normal . [facility] Comment on above: Performed By: #### G GELACIOLS #### Point of Care testing , Nucleated RBC/100 WBC (Bld) [Ratio] 0.0 % Normal 0-0.5 [facility] Comment on above: Performed By: #### Ezra BRIZUELALS #### Point of Care testing , Platelet mean volume (Bld) [Entitic vol] 8.6 fL Normal 6.3-10.7 [facility] Comment on above: Performed By: #### Ezra SOSA #### Point of Care testing , Platelets (Bld) [#/Vol] 241 10*3/uL Normal 150-450 [facility] Comment on above: Performed By: #### Ezra SOSA #### Point of Care testing , RBC (Bld) [#/Vol] 4.29 10*6/uL Normal 3.60-5.00 [facility] Comment on above: Performed By: #### Ezra SOSA #### Point of Care testing , WBC (Bld) [#/Vol] 5.0 10*3/uL Normal 4.5-11.0 [facility] Comment on above: Performed By: #### Ezra SOSA #### Point of Care testing , Comprehensive Metabolic Pane loco 11-12-2021 Albumin [Mass/Vol] 3.1 g/dL Low 3.2-5.5 [facility] Comment on above: Performed By: #### Ezra SOSA #### Point of Care testing , Albumin/Globulin [Mass ratio] 0.8 {ratio} Normal [facility] Comment on above: Performed By: #### Ezra SOSA #### Point of Care testing , ALP [Catalytic activity/Vol] 84 U/L Normal 32-92 [facility] Comment on above: Performed By: #### Ezra SOSA #### Point of Care testing , ALT [Catalytic activity/Vol] 13 U/L Normal 10-60 [facility] Comment on above: Performed By: #### Ezra SOSA #### Point of Care testing , Anion gap [Moles/Vol] 11.9 mmol/L Normal 6.0-15.0 [facility] Comment on above: Performed By: #### Ezra SOSA #### Point of Care testing , AST [Catalytic activity/Vol] 22 U/L Normal 10-42 [facility] Comment on above: Performed By: #### Ezra SOSA #### Point of Care testing , Bilirubin [Mass/Vol] 0.8 mg/dL Normal 0.3-1.2 [facility] Comment on above: Performed By: #### G LULS #### Point of Care testing , Calcium [Mass/Vol] 9.2 mg/dL Normal 8.2-10.2 [facility] Comment on above: Performed By: #### G LULS #### Point of Care testing , Chloride [Moles/Vol] 100 mmol/L Normal 95-114 [facility] Comment on above: Performed By: #### G LULS #### Point of Care testing , CO2 [Moles/Vol] 31.0 mmol/L High 22.0-30.0 [facility] Comment on above: Performed By: #### G LULS #### Point of Care testing , Creatinine [Mass/Vol] 0.55 mg/dL Normal 0.44-1.03 [facility] Comment on above: Performed By: #### G LULS #### Point of Care testing , Creatinine Clr Calc Pharmacy 64.44 [facility] Comment on above: Performed By: #### G LULS #### Point of Care testing , Estimated GFR ( Trista > 60 [facility] Comment on above: Result Comment: GFR estimated reference range: According to KDOQI guidelines, <60 ml/min/1.73m2 is sufficient to diagnose a patient with chronic kidney disease. Performed By: #### G LULS #### Point of Care testing , Estimated GFR (Non- Am > 60 [facility] Comment on above: Performed By: #### G LULS #### Point of Care testing , Globulin (S) [Mass/Vol] 3.7 g/dL [facility] Comment on above: Performed By: #### G LULS #### Point of Care testing , Glucose [Mass/Vol] 130 mg/dL High 70-100 [facility] Comment on above: Result Comment: [place] Glucose Reference Range is dependent on time and content of last meal. Glucose of more than 200 mg/dL in a nonstressed, ambulatory subject supports the diagnosis of Diabetes Mellitus. ADA recommended reference range Performed By: #### G LULS #### Point of Care testing , Potassium [Moles/Vol] 3.9 mmol/L Normal 3.5-5.1 [facility] Comment on above: Performed By: #### G LULS #### Point of Care testing , Protein [Mass/Vol] 6.8 g/dL Normal 6.1-7.9 [facility] Comment on above: Performed By: #### G LULS #### Point of Care testing , Sodium [Moles/Vol] 139 mmol/L Normal 136-146 [facility] Comment on above: Performed By: #### G LULS #### Point of Care testing , Urea nitrogen [Mass/Vol] 8 mg/dL Low 9-23 [facility] Comment on above: Performed By: #### G LULS #### Point of Care testing , Creatinine and Glomerular fi ltration rate.predicted panel (S/P/Bld)Ordered By: Alcides Moya on 11-12-2021 Creatinine [Mass/Vol] 0.55 mg/dL 0.44-1.03 [facility] Eosinophils Auto (Bld) [#/Vo l]Ordered By: Alcides Moya on 11-12-2021 Eosinophils (Bld) [#/Vol] 0.2 10*3/uL 0.0-0.45 [facility] Eosinophils/100 WBC Auto (Bl d)Ordered By: Alcides Moya on 11-12-2021 Eosinophils/100 WBC (Bld) 3.8 % . [facility] Erythrocyte distribution wid th Auto (RBC) [Ratio]Ordered By: Alcides Moya on 11-12-2021 Erythrocyte distribution width (RBC) [Ratio] 17.3 % 11.9-15.3 [facility] Estimated glomerular filtrat ion rate (GFR) non- AmericanOrdered By: Alcides Moya on 11-12-2021 GFR/1.73 sq M.predicted among non-blacks MDRD (S/P/Bld) [Vol rate/Area] > 60 mL/Min [facility] Globulin Calc (S) [Mass/Vol] Ordered By: Alcides Moya on 11-12-2021 Globulin (S) [Mass/Vol] 3.7 g/dL [facility] Glucose Glucometer (BldC) [M ass/Vol]Ordered By: Alcides Moya on 11-12-2021 Glucose [Mass/Vol] 212 mg/dL [facility] Comment on above: Random Glucose Refer ence Range is dependent on time and content of last meal. Glucose of more than 200 mg/dL in a nonstressed, ambulatory subject supports the diagnosis of Diabetes Mellitus. Glucose Poct Glucometerson 0 11-12-2021 Glucose [Mass/Vol] 212 mg/dL Normal [facility] Comment on above: Result Comment: [place] Glucose Reference Range is dependent on time and content of last meal. Glucose of more than 200 mg/dL in a nonstressed, ambulatory subject supports the diagnosis of Diabetes Mellitus. PERFORMED BY: [facility] [address] [place] [address] PATHOLOGIST [employer] FLIP GERMAN M.D. Performed By: #### G LULS #### Point of Care testing , Glucose [Mass/Vol] 293 mg/dL Normal [facility] Comment on above: Result Comment: [place] Glucose Reference Range is dependent on time and content of last meal. Glucose of more than 200 mg/dL in a nonstressed, ambulatory subject supports the diagnosis of Diabetes Mellitus. PERFORMED BY: [address] [place] [address] PATHOLOGIST [employer] FLIP GERMAN M.D. Performed By: #### G LULS #### Point of Care testing , Commemt1 Glu2: Cleaned Meter Normal [facility] Comment on above: Result Comment: PERF ORMED BY: [facility] [address] [place] [address] PATHOLOGIST [employer] FLIP GERMAN M.D. Performed By: #### G LULS #### Point of Care testing , Glucose [Mass/Vol] 204 mg/dL Normal [facility] Comment on above: Result Comment: [place] Glucose Reference Range is dependent on time and content of last meal. Glucose of more than 200 mg/dL in a nonstressed, ambulatory subject supports the diagnosis of Diabetes Mellitus. Performed By: #### G LULS #### Point of Care testing , Commemt1 Glu2: Cleaned Meter Normal [facility] Comment on above: Result Comment: PERF ORMED BY: [facility] [place] [address] PATHOLOGIST [employer] FLIP GERMAN M.D. Performed By: #### G LULS #### Point of Care testing , Glucose [Mass/Vol] 188 mg/dL Normal [facility] Comment on above: Result Comment: [facility] Glucose Reference Range is dependent on time and content of last meal. Glucose of more than 200 mg/dL in a nonstressed, ambulatory subject supports the diagnosis of Diabetes Mellitus. Performed By: #### G LULS #### Point of Care testing , Hematocrit Auto (Bld) [Volum e fraction]Ordered By: Alcides Moya on 11-12-2021 Hematocrit (Bld) [Volume fraction] 38.9 % 34.0-46.4 [facility] Laboratory - CoagulationOrde red By: Alcides Moya on 11-12-2021 PT Coag (PPP) [Time] 34.1 s 9.0-12.9 [facility] Laboratory - Hematology and Cell countsOrdered By: Alcides Moya on 11-12-2021 Nucleated RBC/100 WBC (Bld) [Ratio] 0.0 % 0-0.5 [facility] Lymphocytes Auto (Bld) [#/Vo l]Ordered By: Alcides Moya on 11-12-2021 Lymphocytes (Bld) [#/Vol] 2.0 10*3/uL 1.00-4.8 [facility] Lymphocytes/100 WBC Auto (Bl d)Ordered By: Alcides Moya on 11-12-2021 Lymphocytes/100 WBC (Bld) 39.7 % . [facility] MCH Auto (RBC) [Entitic mass ]Ordered By: Alcides Moya on 11-12-2021 MCH (RBC) [Entitic mass] 29.2 pg 24.7-34.3 [facility] MCHC Auto (RBC) [Mass/Vol]Or dered By: Alcides Moya on 11-12-2021 MCHC (RBC) [Mass/Vol] 32.2 g/dL 32.0-35.0 [facility] MCV Auto (RBC) [Entitic vol] Ordered By: Alcides Moya on 11-12-2021 MCV (RBC) [Entitic vol] 90.6 fL 80-100 [facility] Monocytes Auto (Bld) [#/Vol] Ordered By: Alcides Moya on 11-12-2021 Monocytes (Bld) [#/Vol] 0.5 10*3/uL 0.0-0.8 [facility] Monocytes/100 WBC Auto (Bld) Ordered By: Alcides Moya on 11-12-2021 Monocytes/100 WBC (Bld) 10.1 % . [facility] Neutrophils Auto (Bld) [#/Vo l]Ordered By: Alcides Moya on 11-12-2021 Neutrophils (Bld) [#/Vol] 2.3 10*3/uL 1.8-7.7 [facility] Neutrophils/100 WBC Auto (Bl d)Ordered By: Alcides Moya on 11-12-2021 Neutrophils/100 WBC (Bld) 45.9 % . [facility] No Panel InformationOrdered By: Alcides Moya on 11-12-2021 Bedside Glucose Comment Glu2: cleaned meter [facility] Estimated GFR () > 60 mL/Min [facility] Comment on above: GFR estimated refere nce range: According to KDOQI guidelines, <60 ml/min/1.73m2 is sufficient to diagnose a patient with chronic kidney disease. Pharmacy Creatinine Clearance (Chem 64.44 [facility] Platelet mean volume Auto (B ld) [Entitic vol]Ordered By: Alcides Moya on 11-12-2021 Platelet mean volume (Bld) [Entitic vol] 8.6 fL 6.3-10.7 [facility] Platelet poor plasma interna tional normalized ratio (INR) by coagulation assay (relatOrdered By: Alcides Moya on 11-12-2021 INR Coag (PPP) [Relative time] 3.0 {INR} [facility] Comment on above: INR Therapeutic Rang e [...] 11-12-2021 Platelets (Bld) [#/Vol] 241 10*3/uL 150-450 [facility] Prealbuminon 11-12-2021 Prealbumin [Mass/Vol] 21.7 mg/dL Normal 18.0-38.0 [facility] Comment on above: Result Comment: PERF ORMED BY: [facility] [address] [place] [address] PATHOLOGIST [employer] FLIP GERMAN M.D. Performed By: #### G LULS #### Point of Care testing , Protein [Mass/volume] in Ser um or PlasmaOrdered By: Alcides Moya on 11-12-2021 Protein [Mass/Vol] 6.8 g/dL 6.1-7.9 [facility] Prothrombin Time INRon 11-12 INR Coag (PPP) [Relative time] 3.0 {INR} Normal [facility] Comment on above: Order Comment: [...] heart valves: 3 - 4.5 PERFORMED BY: [facility] [address] [place] [address] PATHOLOGIST [employer] FLIP GERMAN M.D. Performed By: #### G LULS #### Point of Care testing , PT Coag (PPP) [Time] 34.1 s High 9.0-12.9 [facility] Comment on above: Order Comment: List the anticoagulant: COUMADIN/WARFARIN Performed By: #### G LULS #### Point of Care testing , RBC Auto (Bld) [#/Vol]Ordere d By: Alcides Moya on 11-12-2021 RBC (Bld) [#/Vol] 4.29 10*6/uL 3.60-5.00 [facility] Serum or plasma alanine engel otransferase measurement without P-5'-P (enzymatic activiOrdered By: Alcides Moya on 11-12-2021 ALT No additional P-5'-P [Catalytic activity/Vol] 13 U/L 10-60 [facility] Serum or plasma albumin/glob ulin mass ratioOrdered By: Alcides Moya on 11-12-2021 Albumin/Globulin [Mass ratio] 0.8 {ratio} [facility] Serum or plasma alkaline bouchra sphatase measurement (enzymatic activity/volume)Ordered By: Alcides Moya on 11-12-2021 ALP [Catalytic activity/Vol] 84 U/L 32-92 [facility] Serum or plasma anion gap de terminationOrdered By: Alcides Moya on 11-12-2021 Anion gap [Moles/Vol] 11.9 mmol/L 6.0-15.0 [facility] Serum or plasma aspartate am inotransferase measurement (enzymatic activity/volume)Ordered By: Alcides Moya on 11-12-2021 AST [Catalytic activity/Vol] 22 U/L 10-42 [facility] Serum or plasma calcium alondra urement (mass/volume)Ordered By: Alcides Moya on 11-12-2021 Calcium [Mass/Vol] 9.2 mg/dL 8.2-10.2 [facility] Serum or plasma chloride link surement (moles/volume)Ordered By: Alcides Moya on 11-12-2021 Chloride [Moles/Vol] 100 mmol/L 95-114 [facility] Serum or plasma glucose alondra urement (mass/volume)Ordered By: Alcides Moya on 11-12-2021 Glucose [Mass/Vol] 130 mg/dL 70-100 [facility] Comment on above: ADA recommended refe rence range Random Glucose Reference Range is dependent on time and content of last meal. Glucose of more than 200 mg/dL in a nonstressed, ambulatory subject supports the diagnosis of Diabetes Mellitus. Serum or plasma potassium me asurement (moles/volume)Ordered By: Alcides Moya on 11-12-2021 Potassium [Moles/Vol] 3.9 mmol/L 3.5-5.1 [facility] Serum or plasma prealbumin m easurement (mass/volume)Ordered By: Alcides Moya on 11-12-2021 Prealbumin [Mass/Vol] 21.7 mg/dL 18.0-38.0 [facility] Serum or plasma sodium measu rement (moles/volume)Ordered By: Alcides Moya on 11-12-2021 Sodium [Moles/Vol] 139 mmol/L 136-146 [facility] Serum or plasma total biliru bin measurement (mass/volume)Ordered By: Alcides Moya on 11-12-2021 Bilirubin [Mass/Vol] 0.8 mg/dL 0.3-1.2 [facility] Serum or plasma total carbon dioxide measurement (moles/volume)Ordered By: Alcides Moya on 11-12-2021 CO2 [Moles/Vol] 31.0 mmol/L 22.0-30.0 [facility] Serum or plasma urea nitroge n measurement (mass/volume)Ordered By: Alcides Moya on 11-12-2021 Urea nitrogen [Mass/Vol] 8 mg/dL 9- [facility] Glucose Glucometer (BldC) [M ass/Vol]Ordered By: Gaye Claire on 11-11-2021 Glucose [Mass/Vol] 127 mg/dL [facility] Comment on above: Random Glucose Refer ence Range is dependent on time and content of last meal. Glucose of more than 200 mg/dL in a nonstressed, ambulatory subject supports the diagnosis of Diabetes Mellitus. Glucose Poct Glucometerson 0 11-11-2021 Glucose [Mass/Vol] 168 mg/dL Normal [facility] Comment on above: Result Comment: [place] Glucose Reference Range is dependent on time and content of last meal. Glucose of more than 200 mg/dL in a nonstressed, ambulatory subject supports the diagnosis of Diabetes Mellitus. PERFORMED BY: [address] [place] [address] PATHOLOGIST [employer] FLIP GERMAN M.D. Performed By: #### G LULS #### Point of Care testing , Commemt1 Glu2: Cleaned Meter [facility] Comment on above: Result Comment: PERF ORMED BY: [address] [place] [address] PATHOLOGIST [employer] FLIP GERMAN M.D. Performed By: #### G LULS #### Point of Care testing , Glucose [Mass/Vol] 127 mg/dL Normal [facility] Comment on above: Result Comment: [place] om Glucose Reference Range is dependent on time and content of last meal. Glucose of more than 200 mg/dL in a nonstressed, ambulatory subject supports the diagnosis of Diabetes Mellitus. Performed By: #### G LULS #### Point of Care testing , Commemt1 Glu2: Cleaned Meter [facility] Comment on above: Result Comment: PERF ORMED BY: [place] [address] PATHOLOGIST [employer] FLIP GERMAN M.D. Performed By: #### G LULS ####Point of Care testing, Glucose [Mass/Vol] 228 mg/dL Normal [facility] Comment on above: Result Comment: [place] om Glucose Reference Range is dependent on time and content of last meal. Glucose of more than 200 mg/dL in a nonstressed, ambulatory subject supports the diagnosis of Diabetes Mellitus. Performed By: #### G LULS ####Point of Care testing, Commemt1 Glu2: Cleaned Meter [facility] Comment on above: Result Comment: PERF ORMED BY: [facility] [address] [place] [address] PATHOLOGIST [employer] FLIP GERMAN M.D. Performed By: #### G LULS #### Point of Care testing , Glucose [Mass/Vol] 150 mg/dL Normal [facility] Comment on above: Result Comment: [place] om Glucose Reference Range is dependent on time and content of last meal. Glucose of more than 200 mg/dL in a nonstressed, ambulatory subject supports the diagnosis of Diabetes Mellitus. Performed By: #### G LULS #### Point of Care testing , Laboratory - CoagulationOrde red By: Enrrique Mota on 11-11-2021 PT Coag (PPP) [Time] 31.5 s 9.0-12.9 [facility] No Panel InformationOrdered By: Gaye Claire on 11-11-2021 Bedside Glucose Comment Glu2: cleaned meter [facility] Platelet poor plasma interna tional normalized ratio (INR) by coagulation assay (relatOrdered By: Enrrique Mota on 11-11-2021 INR Coag (PPP) [Relative time] 2.7 {INR} [facility] Comment on above: INR Therapeutic Rang e [...] Coag (PPP) [Relative time] 2.7 {INR} Normal [facility] Comment on above: Result Comment: [...] heart valves: 3 - 4.5 PERFORMED BY: [facility] [address] [place] [address] PATHOLOGIST [employer] FLIP GERMAN M.D. Performed By: #### G LUCOLLIN #### Point of Care testing , PT Coag (PPP) [Time] 31.5 s High 9.0-12.9 [facility] Comment on above: Performed By: #### G LULS #### Point of Care testing , Glucose Poct Glucometerson 0 11-10-2021 Glucose [Mass/Vol] 124 mg/dL Normal [facility] Comment on above: Result Comment: [place] om Glucose Reference Range is dependent on time and content of last meal. Glucose of more than 200 mg/dL in a nonstressed, ambulatory subject supports the diagnosis of Diabetes Mellitus. PERFORMED BY: [place] [address] PATHOLOGIST [employer] FLIP GERMAN M.D. Performed By: #### G LULS #### Point of Care testing , Commemt1 Glu2: Cleaned Meter [facility] Comment on above: Result Comment: PERF ORMED BY: [place] [address] PATHOLOGIST [employer] FLIP GERMAN M.D. Performed By: #### G LULS #### Point of Care testing , Glucose [Mass/Vol] 143 mg/dL Normal [facility] Comment on above: Result Comment: [place] om Glucose Reference Range is dependent on time and content of last meal. Glucose of more than 200 mg/dL in a nonstressed, ambulatory subject supports the diagnosis of Diabetes Mellitus. Performed By: #### G LULS #### Point of Care testing , Commemt1 Glu2: Cleaned Meter Normal [facility] Comment on above: Result Comment: PERF ORMED BY: [place] [address] PATHOLOGIST [employer] FLIP GERMAN M.D. Performed By: #### G LULS #### Point of Care testing , Glucose [Mass/Vol] 190 mg/dL Normal [facility] Comment on above: Result Comment: [place] om Glucose Reference Range is dependent on time and content of last meal. Glucose of more than 200 mg/dL in a nonstressed, ambulatory subject supports the diagnosis of Diabetes Mellitus. Performed By: #### G LULS #### Point of Care testing , Commemt1 Glu2: Cleaned Meter Normal [facility] Comment on above: Result Comment: PERF ORMED BY: [address] [place] [address] PATHOLOGIST [employer] FLIP GERMAN M.D. Performed By: #### G LULS #### Point of Care testing , Glucose [Mass/Vol] 136 mg/dL Normal [facility] Comment on above: Result Comment: [place] Glucose Reference Range is dependent on time and content of last meal. Glucose of more than 200 mg/dL in a nonstressed, ambulatory subject supports the diagnosis of Diabetes Mellitus. Performed By: #### G LULS #### Point of Care testing , Prothrombin Time INRon 11-10 INR Coag (PPP) [Relative time] 2.5 {INR} Normal [facility] Comment on above: Result Comment: [...] heart valves: 3 - 4.5 PERFORMED BY: [place] [address] [place] [address] PATHOLOGIST [employer] FLIP GERMAN M.D. Performed By: #### G LULS #### Point of Care testing , PT Coag (PPP) [Time] 28.4 s High 9.0-12.9 [facility] Comment on above: Performed By: #### G LULS #### Point of Care testing , Glucose Poct Glucometerson 0 11-09-2021 Commemt1 Glu2: Cleaned Meter Normal [facility] Comment on above: Result Comment: PERF ORMED BY: [place] [address] [place] [address] PATHOLOGIST [employer] FLIP GERMAN M.D. Performed By: #### G LULS #### Point of Care testing , Glucose [Mass/Vol] 165 mg/dL Normal [facility] Comment on above: Result Comment: [place] om Glucose Reference Range is dependent on time and content of last meal. Glucose of more than 200 mg/dL in a nonstressed, ambulatory subject supports the diagnosis of Diabetes Mellitus. Performed By: #### G LULS #### Point of Care testing , Commemt1 Glu2: Cleaned Meter Normal [facility] Comment on above: Result Comment: PERF ORMED BY: [facility] [address] [place] [address] PATHOLOGIST [employer] FLIP GERMAN M.D. Performed By: #### G LULS #### Point of Care testing , Glucose [Mass/Vol] 156 mg/dL Normal [facility] Comment on above: Result Comment: [place] om Glucose Reference Range is dependent on time and content of last meal. Glucose of more than 200 mg/dL in a nonstressed, ambulatory subject supports the diagnosis of Diabetes Mellitus. Performed By: #### G LULS #### Point of Care testing , Glucose [Mass/Vol] 257 mg/dL Normal [facility] Comment on above: Result Comment: [place] om Glucose Reference Range is dependent on time and content of last meal. Glucose of more than 200 mg/dL in a nonstressed, ambulatory subject supports the diagnosis of Diabetes Mellitus. PERFORMED BY: [address] [place] [address] PATHOLOGIST [employer] FLIP GERMAN M.D. Performed By: #### G LULS #### Point of Care testing , Glucose [Mass/Vol] 142 mg/dL Normal [facility] Comment on above: Result Comment: [place] Glucose Reference Range is dependent on time and content of last meal. Glucose of more than 200 mg/dL in a nonstressed, ambulatory subject supports the diagnosis of Diabetes Mellitus. PERFORMED BY: [address] [place] [id number] PATHOLOGIST [employer] FLIP GERMAN M.D. Performed By: #### G LULS #### Point of Care testing , Prothrombin Time INRon 11-09 INR Coag (PPP) [Relative time] 2.7 {INR} Normal [facility] Comment on above: Result Comment: [...] heart valves: 3 - 4.5 PERFORMED BY: [facility] [address] [place] [address] PATHOLOGIST [employer] FLIP GERMAN M.D. Performed By: #### G LULS #### Point of Care testing , PT Coag (PPP) [Time] 30.5 s High 9.0-12.9 [facility] Comment on above: Performed By: #### G LULS #### Point of Care testing , Glucose Poct Glucometerson 0 11-08-2021 Glucose [Mass/Vol] 180 mg/dL Normal [facility] Comment on above: Result Comment: [facility] Glucose Reference Range is dependent on time and content of last meal. Glucose of more than 200 mg/dL in a nonstressed, ambulatory subject supports the diagnosis of Diabetes Mellitus. PERFORMED BY: [address] [place] [address] PATHOLOGIST [employer] FLIP GERMAN M.D. Performed By: #### G LULS #### Point of Care testing , Glucose [Mass/Vol] 161 mg/dL Normal [facility] Comment on above: Result Comment: [facility] Glucose Reference Range is dependent on time and content of last meal. Glucose of more than 200 mg/dL in a nonstressed, ambulatory subject supports the diagnosis of Diabetes Mellitus. PERFORMED BY: [facility] [address] [place] [address] PATHOLOGIST [employer] FLIP GERMAN M.D. Performed By: #### G LULS #### Point of Care testing , Glucose [Mass/Vol] 193 mg/dL Normal [facility] Comment on above: Result Comment: [place] Glucose Reference Range is dependent on time and content of last meal. Glucose of more than 200 mg/dL in a nonstressed, ambulatory subject supports the diagnosis of Diabetes Mellitus. PERFORMED BY: [address] [place] [id number] PATHOLOGIST [employer] FLIP GERMAN M.D. Performed By: #### G LULS #### Point of Care testing , Commemt1 Glu2: Cleaned Meter Normal [facility] Comment on above: Result Comment: PERF ORMED BY: [facility] [address] [place] [address] PATHOLOGIST [employer] FLIP GERMAN M.D. Performed By: #### G LULS #### Point of Care testing , Glucose [Mass/Vol] 155 mg/dL Normal [facility] Comment on above: Result Comment: [facility] Glucose Reference Range is dependent on time and content of last meal. Glucose of more than 200 mg/dL in a nonstressed, ambulatory subject supports the diagnosis of Diabetes Mellitus. Performed By: #### G LULS #### Point of Care testing , Prothrombin Time INRon 11-08 INR Coag (PPP) [Relative time] 2.9 {INR} Normal [facility] Comment on above: Result Comment: [...] heart valves: 3 - 4.5 PERFORMED BY: [facility] [address] [place] [address] PATHOLOGIST [employer] FLIP GERMAN M.D. Performed By: #### G LULS #### Point of Care testing , PT Coag (PPP) [Time] 33.0 s High 9.0-12.9 [facility] Comment on above: Performed By: #### G LULS #### Point of Care testing , Glucose Poct Glucometerson 0 11-07-2021 Commemt1 Glu2: Cleaned Meter [facility] Comment on above: Result Comment: PERF ORMED BY: [address] [place] [address] PATHOLOGIST [employer] FLIP GERMAN M.D. Performed By: #### G LULS #### Point of Care testing , Glucose [Mass/Vol] 183 mg/dL Normal [facility] Comment on above: Result Comment: [place] Glucose Reference Range is dependent on time and content of last meal. Glucose of more than 200 mg/dL in a nonstressed, ambulatory subject supports the diagnosis of Diabetes Mellitus. Performed By: #### G LULS #### Point of Care testing , Commemt1 Glu2: Cleaned Meter [facility] Comment on above: Result Comment: PERF ORMED BY: [address] [place] [address] PATHOLOGIST [employer] FLIP GERMAN M.D. Performed By: #### G LULS #### Point of Care testing , Glucose [Mass/Vol] 154 mg/dL Normal [facility] Comment on above: Result Comment: [place] Glucose Reference Range is dependent on time and content of last meal. Glucose of more than 200 mg/dL in a nonstressed, ambulatory subject supports the diagnosis of Diabetes Mellitus. Performed By: #### G LULS #### Point of Care testing , Commemt1 Glu2: Cleaned Meter [facility] Comment on above: Result Comment: PERF ORMED BY: [facility] [address] [place] [id number] PATHOLOGIST [employer] FLIP GERMAN M.D. Performed By: #### G LULS #### Point of Care testing , Glucose [Mass/Vol] 339 mg/dL Normal [facility] Comment on above: Result Comment: [place] Glucose Reference Range is dependent on time and content of last meal. Glucose of more than 200 mg/dL in a nonstressed, ambulatory subject supports the diagnosis of Diabetes Mellitus. Performed By: #### G LULS #### Point of Care testing , Glucose [Mass/Vol] 146 mg/dL Normal [facility] Comment on above: Result Comment: [facility] Glucose Reference Range is dependent on time and content of last meal. Glucose of more than 200 mg/dL in a nonstressed, ambulatory subject supports the diagnosis of Diabetes Mellitus. PERFORMED BY: [facility] [address] [place] [address] PATHOLOGIST [employer] FLIP GERMAN M.D. Performed By: #### G LULS #### Point of Care testing , Prothrombin Time INRon 11-07 INR Coag (PPP) [Relative time] 2.0 {INR} Normal [facility] Comment on above: Result Comment: [...] heart valves: 3 - 4.5 PERFORMED BY: [facility] [address] [place] [address] PATHOLOGIST [employer] FLIP GERMAN M.D. Performed By: #### G GELACIOLS #### Point of Care testing , PT Coag (PPP) [Time] 22.8 s High 9.0-12.9 [facility] Comment on above: Performed By: #### G LULS #### Point of Care testing , Basic Metabolic Panelon 10-13 Calcium [Mass/Vol] 9.1 mg/dL Normal 8.2-10.2 [facility] Comment on above: Performed By: #### G LULS #### Point of Care testing , Chloride [Moles/Vol] 98 mmol/L Normal 95-114 [facility] Comment on above: Performed By: #### G GELACIOLS #### Point of Care testing , CO2 [Moles/Vol] 33.3 mmol/L High 22.0-30.0 [facility] Comment on above: Performed By: #### G LULS #### Point of Care testing , Creatinine [Mass/Vol] 0.63 mg/dL Normal 0.44-1.03 [facility] Comment on above: Performed By: #### G LULS #### Point of Care testing , Creatinine Clr Calc Pharmacy 65.08 [facility] Comment on above: Result Comment: PERF ORMED BY: [facility] [place] [place] [address] PATHOLOGIST [employer] FLIP GERMAN M.D. Performed By: #### G LULS #### Point of Care testing , Estimated GFR ( Trista > 60 [facility] Comment on above: Result Comment: GFR estimated reference range: According to KDOQI guidelines, <60 ml/min/1.73m2 is sufficient to diagnose a patient with chronic kidney disease. Performed By: #### G LULS #### Point of Care testing , Estimated GFR (Non- Am > 60 [facility] Comment on above: Performed By: #### G LULS #### Point of Care testing , Glucose [Mass/Vol] 159 mg/dL High 70-100 [facility] Comment on above: Result Comment: [place] Glucose Reference Range is dependent on time and content of last meal. Glucose of more than 200 mg/dL in a nonstressed, ambulatory subject supports the diagnosis of Diabetes Mellitus. ADA recommended reference range Performed By: #### G LULS #### Point of Care testing , Potassium [Moles/Vol] 3.3 mmol/L Low 3.5-5.1 [facility] Comment on above: Performed By: #### G LULS #### Point of Care testing , Sodium [Moles/Vol] 140 mmol/L Normal 136-146 [facility] Comment on above: Performed By: #### G LULS #### Point of Care testing , Urea nitrogen [Mass/Vol] 6 mg/dL Low 9-23 [facility] Comment on above: Performed By: #### G LULS #### Point of Care testing , Basophils Auto (Bld) [#/Vol] Ordered By: Faustina Barr on 11-06-2021 Basophils (Bld) [#/Vol] 0.0 10*3/uL 0.0-0.2 [facility] Basophils/100 WBC Auto (Bld) Ordered By: Faustina Barr on 11-06-2021 Basophils/100 WBC (Bld) 0.5 % . [facility] Blood hemoglobin measurement (mass/volume)Ordered By: Faustina Barr on 11-06-2021 Hemoglobin (Bld) [Mass/Vol] 11.8 g/dL 11.8-15.4 [facility] Blood leukocytes automated c ount (number/volume)Ordered By: Faustina Barr on 11-06-2021 WBC (Bld) [#/Vol] 5.6 10*3/uL 4.5-11.0 [facility] Complete Blood Count Auto Di ffon 11-06-2021 Basophils (Bld) [#/Vol] 0.0 10*3/uL Normal 0.0-0.2 [facility] Comment on above: Result Comment: PERF ORMED BY: [facility] [address] [place] [address] PATHOLOGIST [employer] FLIP GERMAN M.D. Performed By: #### G LULS #### Point of Care testing , Basophils/100 WBC (Bld) 0.5 % Normal . [facility] Comment on above: Performed By: #### G LULS #### Point of Care testing , Eosinophils (Bld) [#/Vol] 0.2 10*3/uL Normal 0.0-0.45 [facility] Comment on above: Performed By: #### G LULS #### Point of Care testing , Eosinophils/100 WBC (Bld) 3.9 % Normal . [facility] Comment on above: Performed By: #### G LULS #### Point of Care testing , Erythrocyte distribution width (RBC) [Ratio] 16.6 % High 11.9-15.3 [facility] Comment on above: Performed By: #### G LULS #### Point of Care testing , Hematocrit (Bld) [Volume fraction] 37.0 % Normal 34.0-46.4 [facility] Comment on above: Performed By: #### G GELACIOLS #### Point of Care testing , Hemoglobin (Bld) [Mass/Vol] 11.8 g/dL Normal 11.8-15.4 [facility] Comment on above: Performed By: #### G GELACIOLS #### Point of Care testing , Lymphocytes (Bld) [#/Vol] 2.1 10*3/uL Normal 1.00-4.8 [facility] Comment on above: Performed By: #### G LULS #### Point of Care testing , Lymphocytes/100 WBC (Bld) 37.6 % Normal . [facility] Comment on above: Performed By: #### G GELACIOLS #### Point of Care testing , MCH (RBC) [Entitic mass] 28.8 pg Normal 24.7-34.3 [facility] Comment on above: Performed By: #### G GELACIOLS #### Point of Care testing , MCV (RBC) [Entitic vol] 90.5 fL Normal 80-100 [facility] Comment on above: Performed By: #### G GELACIOLS #### Point of Care testing , Mean Corpuscular HGB Conc 31.9 g/dL Low 32.0-35.0 [facility] Comment on above: Performed By: #### G GELACIOLS #### Point of Care testing , Monocytes (Bld) [#/Vol] 0.7 10*3/uL Normal 0.0-0.8 [facility] Comment on above: Performed By: #### G LULS #### Point of Care testing , Monocytes/100 WBC (Bld) 12.7 % Normal . [facility] Comment on above: Performed By: #### G LULS #### Point of Care testing , Neutrophils (Bld) [#/Vol] 2.5 10*3/uL Normal 1.8-7.7 [facility] Comment on above: Performed By: #### G LULS #### Point of Care testing , Neutrophils/100 WBC (Bld) 45.3 % Normal . [facility] Comment on above: Performed By: #### G LULS #### Point of Care testing , Nucleated RBC/100 WBC (Bld) [Ratio] 0.1 % Normal 0-0.5 [facility] Comment on above: Performed By: #### G LULS #### Point of Care testing , Platelet mean volume (Bld) [Entitic vol] 8.3 fL Normal 6.3-10.7 [facility] Comment on above: Performed By: #### G LULS #### Point of Care testing , Platelets (Bld) [#/Vol] 298 10*3/uL Normal 150-450 [facility] Comment on above: Performed By: #### G LULS #### Point of Care testing , RBC (Bld) [#/Vol] 4.09 10*6/uL Normal 3.60-5.00 [facility] Comment on above: Performed By: #### G GELACIOLS #### Point of Care testing , WBC (Bld) [#/Vol] 5.6 10*3/uL Normal 4.5-11.0 [facility] Comment on above: Performed By: #### G LULS #### Point of Care testing , Creatinine and Glomerular fi ltration rate.predicted panel (S/P/Bld)Ordered By: Faustina Barr on 11-06-2021 Creatinine [Mass/Vol] 0.63 mg/dL 0.44-1.03 [facility] Eosinophils Auto (Bld) [#/Vo l]Ordered By: Faustina Barr on 11-06-2021 Eosinophils (Bld) [#/Vol] 0.2 10*3/uL 0.0-0.45 [facility] Eosinophils/100 WBC Auto (Bl d)Ordered By: Faustina Barr on 11-06-2021 Eosinophils/100 WBC (Bld) 3.9 % . [facility] Erythrocyte distribution wid th Auto (RBC) [Ratio]Ordered By: Faustina Barr on 11-06-2021 Erythrocyte distribution width (RBC) [Ratio] 16.6 % 11.9-15.3 [facility] Estimated glomerular filtrat ion rate (GFR) non- AmericanOrdered By: Faustina Barr on 11-06-2021 GFR/1.73 sq M.predicted among non-blacks MDRD (S/P/Bld) [Vol rate/Area] > 60 mL/Min [facility] Glucose Poct Glucometerson 0 11-06-2021 Commemt1 Glu2: Cleaned Meter [facility] Comment on above: Result Comment: PERF ORMED BY: [facility] [address] [place] [id number] PATHOLOGIST [employer] FLIP GERMAN M.D. Performed By: #### G LULS #### Point of Care testing , Glucose [Mass/Vol] 175 mg/dL Normal [facility] Comment on above: Result Comment: [place] Glucose Reference Range is dependent on time and content of last meal. Glucose of more than 200 mg/dL in a nonstressed, ambulatory subject supports the diagnosis of Diabetes Mellitus. Performed By: #### G LULS #### Point of Care testing , Commemt1 Glu2: Cleaned Meter [facility] Comment on above: Result Comment: PERF ORMED BY: [address] [place] [id number] PATHOLOGIST [employer] FLIP GERMAN M.D. Performed By: #### G LULS #### Point of Care testing , Glucose [Mass/Vol] 141 mg/dL Normal [facility] Comment on above: Result Comment: [place] Glucose Reference Range is dependent on time and content of last meal. Glucose of more than 200 mg/dL in a nonstressed, ambulatory subject supports the diagnosis of Diabetes Mellitus. Performed By: #### G LULS #### Point of Care testing , Glucose [Mass/Vol] 171 mg/dL Normal [facility] Comment on above: Result Comment: [place] Glucose Reference Range is dependent on time and content of last meal. Glucose of more than 200 mg/dL in a nonstressed, ambulatory subject supports the diagnosis of Diabetes Mellitus. PERFORMED BY: [address] [place] [address] PATHOLOGIST [employer] FLIP GERMAN M.D. Performed By: #### G LULS #### Point of Care testing , Glucose [Mass/Vol] 139 mg/dL Normal [facility] Comment on above: Result Comment: [facility] Glucose Reference Range is dependent on time and content of last meal. Glucose of more than 200 mg/dL in a nonstressed, ambulatory subject supports the diagnosis of Diabetes Mellitus. PERFORMED BY: [facility] [place] [address] PATHOLOGIST [employer] FLIP GERMAN M.D. Performed By: #### G LULS #### Point of Care testing , Hematocrit Auto (Bld) [Volum e fraction]Ordered By: Faustina Barr on 11-06-2021 Hematocrit (Bld) [Volume fraction] 37.0 % 34.0-46.4 [facility] Laboratory - Hematology and Cell countsOrdered By: Faustina Barr on 11-06-2021 Nucleated RBC/100 WBC (Bld) [Ratio] 0.1 % 0-0.5 [facility] Lymphocytes Auto (Bld) [#/Vo l]Ordered By: Faustina Barr on 11-06-2021 Lymphocytes (Bld) [#/Vol] 2.1 10*3/uL 1.00-4.8 [facility] Lymphocytes/100 WBC Auto (Bl d)Ordered By: Faustina Barr on 11-06-2021 Lymphocytes/100 WBC (Bld) 37.6 % . [facility] MCH Auto (RBC) [Entitic mass ]Ordered By: Faustina Barr on 11-06-2021 MCH (RBC) [Entitic mass] 28.8 pg 24.7-34.3 [facility] MCHC Auto (RBC) [Mass/Vol]Or dered By: Faustina Barr on 11-06-2021 MCHC (RBC) [Mass/Vol] 31.9 g/dL 32.0-35.0 [facility] MCV Auto (RBC) [Entitic vol] Ordered By: Faustina Barr on 11-06-2021 MCV (RBC) [Entitic vol] 90.5 fL 80-100 [facility] Monocytes Auto (Bld) [#/Vol] Ordered By: Faustina Barr on 11-06-2021 Monocytes (Bld) [#/Vol] 0.7 10*3/uL 0.0-0.8 [facility] Monocytes/100 WBC Auto (Bld) Ordered By: Faustina Brar on 11-06-2021 Monocytes/100 WBC (Bld) 12.7 % . [facility] Neutrophils Auto (Bld) [#/Vo l]Ordered By: Faustina Barr on 11-06-2021 Neutrophils (Bld) [#/Vol] 2.5 10*3/uL 1.8-7.7 [facility] Neutrophils/100 WBC Auto (Bl d)Ordered By: Faustina Barr on 11-06-2021 Neutrophils/100 WBC (Bld) 45.3 % . [facility] No Panel InformationOrdered By: Faustina Barr on 11-06-2021 Estimated GFR () > 60 mL/Min [facility] Comment on above: GFR estimated refere nce range: According to KDOQI guidelines, <60 ml/min/1.73m2 is sufficient to diagnose a patient with chronic kidney disease. Pharmacy Creatinine Clearance (Chem 65.08 [facility] Platelet mean volume Auto (B ld) [Entitic vol]Ordered By: Faustina Barr on 11-06-2021 Platelet mean volume (Bld) [Entitic vol] 8.3 fL 6.3-10.7 [facility] Platelets Auto (Bld) [#/Vol] Ordered By: Faustina Barr on 11-06-2021 Platelets (Bld) [#/Vol] 298 10*3/uL 150-450 [facility] Prothrombin Time INRon 11-06 INR Coag (PPP) [Relative time] 1.3 {INR} Normal [facility] Comment on above: Result Comment: [...] heart valves: 3 - 4.5 PERFORMED BY: [facility] [place] [place] [address] PATHOLOGIST [employer] FLIP GERMAN M.D. Performed By: #### G LULS #### Point of Care testing , PT Coag (PPP) [Time] 14.4 s High 9.0-12.9 [facility] Comment on above: Performed By: #### G LULS #### Point of Care testing , RBC Auto (Bld) [#/Vol]Ordere d By: Faustina Barr on 11-06-2021 RBC (Bld) [#/Vol] 4.09 10*6/uL 3.60-5.00 [facility] Serum or plasma calcium alondra urement (mass/volume)Ordered By: Faustina Barr on 11-06-2021 Calcium [Mass/Vol] 9.1 mg/dL 8.2-10.2 [facility] Serum or plasma chloride link surement (moles/volume)Ordered By: Faustina Barr on 11-06-2021 Chloride [Moles/Vol] 98 mmol/L 95-114 [facility] Serum or plasma glucose alondra urement (mass/volume)Ordered By: Faustina Barr on 11-06-2021 Glucose [Mass/Vol] 159 mg/dL 70-100 [facility] Comment on above: ADA recommended refe [...] on 11-06-2021 Potassium [Moles/Vol] 3.3 mmol/L 3.5-5.1 [facility] Serum or plasma sodium measu rement (moles/volume)Ordered By: Faustina Barr on 11-06-2021 Sodium [Moles/Vol] 140 mmol/L 136-146 [facility] Serum or plasma total carbon dioxide measurement (moles/volume)Ordered By: Faustina Barr on 11-06-2021 CO2 [Moles/Vol] 33.3 mmol/L 22.0-30.0 [facility] Serum or plasma urea nitroge n measurement (mass/volume)Ordered By: Faustina Barr on 11-06-2021 Urea nitrogen [Mass/Vol] 6 mg/dL 12-04 [facility] Urine culture routineOrdered By: Marvin Peter on 11-06-2021 Bacteria identified Cx Nom (U) Escherichia coli [facility] Glucose Poct Glucometerson 0 11-05-2021 Commemt1 Glu2: Cleaned Meter Normal [facility] Comment on above: Result Comment: PERF ORMED BY: [place] [address] PATHOLOGIST [employer] FLIP GERMAN M.D. Performed By: #### G LULS #### Point of Care testing , Glucose [Mass/Vol] 202 mg/dL Normal [facility] Comment on above: Result Comment: [place] Glucose Reference Range is dependent on time and content of last meal. Glucose of more than 200 mg/dL in a nonstressed, ambulatory subject supports the diagnosis of Diabetes Mellitus. Performed By: #### G LULS #### Point of Care testing , MR lumbar spine wo conon MR lumbar spine wo con [facility] [place] [address] MRI Report Signed Patient: Alton Barker MR#: [id number] 987 : 1940 Acct:[id number] Age/Sex: 81 / F ADM Date: 11/04/21 Loc: 3T Room: [address] [place] [address] Type: ADM INOo Attending Dr: Enrrique Mota [...] are noted, as above. Impression dictated by: Viajy Holden M.D.11/05/2021 12:14 PM Dictation Location: [place] [address] Transcribed By: [facility] 11/05/21 1214 Dictated By: Vijay Holden II, MD 11/05/21 1209 Signed By: 11/05/21 1214 Normal [facility] Prothrombin Time INRon 11-05 INR Coag (PPP) [Relative time] 1.8 {INR} [facility] Comment on above: Result Comment: INR [...] heart valves: 3 - 4.5 PERFORMED BY: [address] [place] [address] PATHOLOGIST [employer] FLIP GERMAN M.D. Performed By: #### G LULS #### Point of Care testing , PT Coag (PPP) [Time] 20.0 s High 9.0-12.9 [facility] Comment on above: Performed By: #### G IAN #### Point of Care testing , Albumin [Mass/volume] in Ser um or PlasmaOrdered By: Marvin Peter on 11-04-2021 Albumin [Mass/Vol] 3.4 g/dL 3.2-5.5 [facility] Automated erythrocytes count in urine sediment (number/area)Ordered By: Marvin Peter on 11-04-2021 RBC Auto (Urine sed) [#/Area] Innumerable [HPF] 0-4 [facility] Automated leukocytes count i n urine sediment (number/area)Ordered By: Marvin Peter on 11-04-2021 WBC Auto (Urine sed) [#/Area] 50-100 [HPF] 0-4 [facility] Automated urine hyaline cast s count (number/volume)Ordered By: Marvin Peter on 11-04-2021 Hyaline casts Auto (U) [#/Vol] Rare [LPF] 0-1 [facility] Bilirubin Test strip Ql (U)O rdered By: Marvin Peter on 11-04-2021 Bilirubin Ql (U) Negative Negative [facility] COVID CepheidOrdered By: Artie grant Brittani on 11-04-2021 SARS-CoV-2 (COVID-19) Ab IA Ql Negative Negative [facility] Comment on above: This is a duplicate Cepheid Xpert Xpress CoV-2/Flu/RSV Plus RNA by RT-PCR result to be used for statistical tracking purpose only. SARS-CoV-2 (COVID-19) RNA PIPE+probe Ql (Unsp spec) [facility] COVID-19 / Flu A/B / RSV PCR [...] or Cepheid Disclaimer revoked sooner. PERFORMED BY: [facility] [place] [address] PATHOLOGIST [employer] FLIP GERMAN M.D. [facility] Comment on above: Performed By: #### [...] developed and its performance characteristic determined by [employer] and validated at [facility]. This test has not been FDA cleared [...] for SARS Antigen by [facility] PERFORMED BY: [place] [address] PATHOLOGIST [employer] FLIP GERMAN M.D. Normal [facility] Comment on above: Performed By: #### G LULS #### Point of Care testing , COVID-19 SOFIAOrdered By: Sina Peter on 11-04-2021 SARS-CoV+SARS-CoV-2 (COVID-19) Ag IA.rapid Ql (Resp) Negative Negative [facility] Comment on above: This is a duplicate [facility] SARS Antigen ([facility]) result to be used for statistical tracking purpose only. CT cervical spine wo conon 0 11-04-2021 CT cervical spine wo con [facility] [place] [address] CT Scan Report Signed Patient: Alton Barker MR#: [id number] 987 : 1940 Acct:[id number] Age/Sex: 81 / F ADM Date: 11/04/21 Loc: ER Room: Type: [facility] ER Attending Dr: Copies to: [...] Baltazar Saucedo M.D.11/04/2021 5:55 PM Dictation Location: [place] [address] Transcribed By: [facility] 11/04/211754 Dictated By: Baltazar Saucedo DO 11/04/211752 Signed By: 11/04/21 175 Normal [facility] CT head/brain wo conon 11-04 CT head/brain wo con [facility] Main [place] [address] [place] [address] CT Scan Report Signed Patient: Alton Barker MR#: [id number] 987 : 1940 Acct:[id number] Age/Sex: 81 / F ADM Date: 11/04/21 Loc: ER Room: Type: [facility] ER Attending Dr: Copies to: [...] Baltazar Saucedo M.D.11/04/2021 5:52 PM Dictation Location: [place] [address] Transcribed By: [facility] 11/04/211751 Dictated By: Baltazar Saucedo DO 11/04/211747 Signed By: 11/04/21 [address] [facility] [address] lumbar spine wo conon CT lumbar spine wo con [facility] [place] [address] CT Scan Report Signed Patient: Alton Barker MR#: [id number] 987 : 1940 Acct:[id number] Age/Sex: 81 / F ADM Date: 11/04/21 Loc: ER Room: Type: [facility] ER Attending Dr: Copies to: [...] Baltazar Saucedo M.D.11/04/2021 6:06 PM Dictation Location: [place] [address] Transcribed By: [facility] 11/04/211805 Dictated By: Baltazar Saucdeo DO 11/04/211800 Signed By: 11/04/21 [address] [facility] [address] thoracic spine wo conon 0 11-04-2021 CT thoracic spine wo con [facility] Main [place] [id number] CT Scan Report Signed Patient: Alton Barker MR#: [id number] 987 : 1940 Acct:[id number] Age/Sex: 81 / F ADM Date: 11/04/21 Loc: ER Room: Type: [facility] ER Attending Dr: Copies to: [...] Baltazar Saucedo M.D.11/04/2021 6:00 PM Dictation Location: [place] [address] Transcribed By: [facility] 11/04/21 1800 Dictated By: Baltazar Saucedo DO 11/04/21 1758 Signed By: 11/04/21 1800 Normal [facility] Casts typing in urine sedime nt by light microscopyOrdered By: Marvin Peter on 11-04-2021 Casts LM Nom (Urine sed) None seen [LPF] None Seen [facility] Cepheid COVID PCR Negativeon 11-04-2021 SARS-CoV-2 (COVID-19) RNA PIPE+probe Ql (Unsp spec) Negative Normal Negative [facility] Comment on above: Result Comment: This is a duplicate Cepheid Xpert Xpress CoV-2/Flu/RSV Plus RNA by RT-PCR result to be used for statistical tracking purpose only. PERFORMED BY: [facility] [address] [place] [address] PATHOLOGIST [employer] FLIP GERMAN M.D. Performed By: #### G IAN #### Point of Care testing , Color Auto (U)Ordered By: Sina Peter on 11-04-2021 Color (U) Yellow Yellow [facility] Complete Blood Count Auto Di ffon 11-04-2021 Basophils (Bld) [#/Vol] 0.0 10*3/uL Normal 0.0-0.2 [facility] Comment on above: Result Comment: PERF ORMED BY: [facility] [address] [place] [address] PATHOLOGIST [employer] FLIP GERMAN M.D. Performed By: #### C MP, CBC ####[address] Basophils/100 WBC (Bld) 0.6 % Normal . [facility] Comment on above: Performed By: #### C MP, CBC ####[address] Eosinophils (Bld) [#/Vol] 0.1 10*3/uL Normal 0.0-0.45 [facility] Comment on above: Performed By: #### C MP, CBC ####[place] [id number] [facility] Eosinophils/100 WBC (Bld) 1.7 % Normal . [facility] Comment on above: Performed By: #### C MP, CBC ####[place] [id number] [facility] Erythrocyte distribution width (RBC) [Ratio] 16.3 % High 11.9-15.3 [facility] Comment on above: Performed By: #### C MP, CBC ####[place] [id number] [facility] Hematocrit (Bld) [Volume fraction] 39.2 % Normal 34.0-46.4 [facility] Comment on above: Performed By: #### C MP, CBC ####[place] [id number] [facility] Hemoglobin (Bld) [Mass/Vol] 12.8 g/dL Normal 11.8-15.4 [facility] Comment on above: Performed By: #### C MP, CBC ####[address] Lymphocytes (Bld) [#/Vol] 1.6 10*3/uL Normal 1.00-4.8 [facility] Comment on above: Performed By: #### C MP, CBC ####[address] Lymphocytes/100 WBC (Bld) 20.3 % Normal . [facility] Comment on above: Performed By: #### C MP, CBC ####[address] MCH (RBC) [Entitic mass] 29.2 pg Normal 24.7-34.3 [facility] Comment on above: Performed By: #### C MP, CBC ####[address] MCV (RBC) [Entitic vol] 89.5 fL Normal 80-100 [facility] Comment on above: Performed By: #### C MP, CBC ####[address] Mean Corpuscular HGB Conc 32.6 g/dL Normal 32.0-35.0 [facility] Comment on above: Performed By: #### C MP, CBC ####[address] Monocytes (Bld) [#/Vol] 0.8 10*3/uL Normal 0.0-0.8 [facility] Comment on above: Performed By: #### C MP, CBC ####[address] Monocytes/100 WBC (Bld) 9.7 % Normal . [facility] Comment on above: Performed By: #### C MP, CBC ####[address] Neutrophils (Bld) [#/Vol] 5.3 10*3/uL Normal 1.8-7.7 [facility] Comment on above: Performed By: #### C MP, CBC ####[place] [id number] [facility] Neutrophils/100 WBC (Bld) 67.7 % Normal . [facility] Comment on above: Performed By: #### C MP, CBC ####[place] [id number] [facility] Nucleated RBC/100 WBC (Bld) [Ratio] 0.1 % Normal 0-0.5 [facility] Comment on above: Performed By: #### C MP, CBC ####[address] Platelet mean volume (Bld) [Entitic vol] 7.9 fL Normal 6.3-10.7 [facility] Comment on above: Performed By: #### C MP, CBC ####[address] Platelets (Bld) [#/Vol] 318 10*3/uL Normal 150-450 [facility] Comment on above: Performed By: #### C MP, CBC ####[address] RBC (Bld) [#/Vol] 4.38 10*6/uL Normal 3.60-5.00 [facility] Comment on above: Performed By: #### C MP, CBC ####[address] WBC (Bld) [#/Vol] 7.9 10*3/uL Normal 4.5-11.0 [facility] Comment on above: Performed By: #### C MP, CBC ####[place] [id number] [facility] Comprehensive Metabolic Pane loco 11-04-2021 Albumin [Mass/Vol] 3.4 g/dL Normal 3.2-5.5 [facility] Comment on above: Performed By: #### C MP, CBC ####[facility] [place] [address] [facility] Albumin/Globulin [Mass ratio] 0.9 {ratio} Normal [facility] Comment on above: Performed By: #### C MP, CBC ####[facility] [place] [address] [facility] ALP [Catalytic activity/Vol] 80 U/L Normal 32-92 [facility] Comment on above: Performed By: #### C MP, CBC ####[address] [address] [facility] ALT [Catalytic activity/Vol] 7 U/L Low 10-60 [facility] Comment on above: Performed By: #### C MP, CBC ####[address] [address] [facility] AST [Catalytic activity/Vol] 16 U/L Normal 10-42 [facility] Comment on above: Performed By: #### C MP, CBC ####[address] [address] [facility] Bilirubin [Mass/Vol] 1.2 mg/dL Normal 0.3-1.2 [facility] Comment on above: Performed By: #### C MP, CBC ####[address] [address] [facility] Calcium [Mass/Vol] 9.7 mg/dL Normal 8.2-10.2 [facility] Comment on above: Performed By: #### C MP, CBC ####[address] [address] [facility] Chloride [Moles/Vol] 95 mmol/L Normal 95-114 [facility] Comment on above: Performed By: #### C MP, CBC ####[address] [address] [facility] CO2 [Moles/Vol] 30.4 mmol/L High 22.0-30.0 [facility] Comment on above: Performed By: #### C MP, CBC ####[address] [address] [facility] Creatinine [Mass/Vol] 0.61 mg/dL Normal 0.44-1.03 [facility] Comment on above: Performed By: #### C MP, CBC ####[place] [id number] [facility] Creatinine Clr Calc Pharmacy 64.44 [facility] Comment on above: Result Comment: PERF ORMED BY: [facility] [address] [place] [address] PATHOLOGIST [employer] FLIP GERMAN M.D. Performed By: #### C MP, CBC ####[address] Estimated GFR ( Trista > 60 [facility] Comment on above: Result Comment: GFR estimated reference range: According to KDOQI guidelines, <60 ml/min/1.73m2 is sufficient to diagnose a patient with chronic kidney disease. Performed By: #### C MP, CBC ####[address] Estimated GFR (Non- Am > 60 [facility] Comment on above: Performed By: #### C MP, CBC ####[address] Globulin (S) [Mass/Vol] 3.7 g/dL [facility] Comment on above: Performed By: #### C MP, CBC ####[address] Glucose [Mass/Vol] 131 mg/dL High 70-100 [facility] Comment on above: Result Comment: [place] Glucose Reference Range is dependent on time and content of last meal. Glucose of more than 200 mg/dL in a nonstressed, ambulatory subject supports the diagnosis of Diabetes Mellitus. ADA recommended reference range Performed By: #### C MP, CBC ####[address] Potassium [Moles/Vol] 3.8 mmol/L Normal 3.5-5.1 [facility] Comment on above: Performed By: #### C MP, CBC ####[facility] [address] [place] [address] [facility] Protein [Mass/Vol] 7.1 g/dL Normal 6.1-7.9 [facility] Comment on above: Performed By: #### C MP, CBC ####[facility] [address] [place] [address] [facility] Sodium [Moles/Vol] 137 mmol/L Normal 136-146 [facility] Comment on above: Performed By: #### C MP, CBC ####[facility] [address] [place] [address] [facility] Urea nitrogen [Mass/Vol] 14 mg/dL Normal 9-23 [facility] Comment on above: Performed By: #### C MP, CBC ####[place] [address] [place] [id number] [facility] Dipstick and Microscopicon 0 11-04-2021 Appearance (U) Cloudy Critically abnormal Clear [facility] Comment on above: Order Comment: Name Collection Type:: Voided Performed By: #### G LULS #### Point of Care testing , Bacteria,Urine 4+ High None Seen [facility] Comment on above: Order Comment: Name Collection Type:: Voided Performed By: #### G LULS #### Point of Care testing , Bilirubin,Urine Negative Normal Negative [facility] Comment on above: Order Comment: Name Collection Type:: Voided Performed By: #### G LULS #### Point of Care testing , Color (U) Yellow Normal Yellow [facility] Comment on above: Order Comment: Name Collection Type:: Voided Performed By: #### G LULS #### Point of Care testing , Glucose Ql (U) Normal Normal Normal [facility] Comment on above: Order Comment: Name Collection Type:: Voided Performed By: #### G LULS #### Point of Care testing , Hyaline Casts,Urine Rare Normal 0-1 [facility] Comment on above: Order Comment: Name Collection Type:: Voided Performed By: #### G LULS #### Point of Care testing , Ketones Ql (U) 1+ High Negative [facility] Comment on above: Order Comment: Name Collection Type:: Voided Performed By: #### G LULS #### Point of Care testing , Leukocyte esterase Test strip Ql (U) 3+ High Negative [facility] Comment on above: Order Comment: Name Collection Type:: Voided Performed By: #### G LULS #### Point of Care testing , Nitrite,Urine Positive High Negative [facility] Comment on above: Order Comment: Name Collection Type:: Voided Performed By: #### G LULS #### Point of Care testing , Occult Blood,Urine 3+ High Negative [facility] Comment on above: Order Comment: Name Collection Type:: Voided Result Comment: PERF ORMED BY: [address] [place] [address] PATHOLOGIST [employer] FLIP GERMAN M.D. Performed By: #### G LULS #### Point of Care testing , Other Casts,Urine None Seen Normal None Seen [facility] Comment on above: Order Comment: Name Collection Type:: Voided Result Comment: PERF ORMED BY: [address] [place] [address] PATHOLOGIST [employer] FLIP GERMAN M.D. Performed By: #### G LULS #### Point of Care testing , pH (U) 5.5 [pH] Normal 5.0-9.0 [facility] Comment on above: Order Comment: Name Collection Type:: Voided Performed By: #### G LULS #### Point of Care testing , Protein (U) [Mass/Vol] 30 mg/dL High Negative [facility] Comment on above: Order Comment: Name Collection Type:: Voided Performed By: #### G LULS #### Point of Care testing , RBC,Urine Innumerable High 0-4 [facility] Comment on above: Order Comment: Name Collection Type:: Voided Performed By: #### G LULS #### Point of Care testing , Specificy [place],Urine 1.029 Normal 1.001-1.03 0 [facility] Comment on above: Order Comment: Name Collection Type:: Voided Performed By: #### G LULS #### Point of Care testing , Squamous Epithelial Cell,Urine 5-9 High 0-2 [facility] Comment on above: Order Comment: Name Collection Type:: Voided Performed By: #### G LULS #### Point of Care testing , Urobilinogen,Urine Normal Normal Normal [facility] Comment on above: Order Comment: Name Collection Type:: Voided Performed By: #### G LULS #### Point of Care testing , WBC,Urine 50-100 High 0-4 [facility] Comment on above: Order Comment: Name Collection Type:: Voided Performed By: #### G LULS #### Point of Care testing , Globulin Calc (S) [Mass/Vol] Ordered By: Marvin Peter on 11-04-2021 Globulin (S) [Mass/Vol] 3.7 g/dL [facility] Ketones Auto test strip (U) [Mass/Vol]Ordered By: Marvin Peter on 11-04-2021 Ketones (U) [Mass/Vol] 1+ Negative [facility] Nitrite Test strip Ql (U)Ord ered By: Marvin Peter on 11-04-2021 Nitrite Ql (U) Positive Negative [facility] No Panel InformationOrdered By: Enrrique Mota on 11-04-2021 25-Hydroxy Vitamin D Total 71.4 ng/mL 30-100 [facility] Comment on above: VITAMIN D STATUS 25( [...] 11-04-2021 Protein (U) [Mass/Vol] 30 mg/dL Negative [facility] Protein [Mass/volume] in Ser um or PlasmaOrdered By: Marvin Peter on 11-04-2021 Protein [Mass/Vol] 7.1 g/dL 6.1-7.9 [facility] Prothrombin Time INRon 11-04 INR Coag (PPP) [Relative time] 8.2 {INR} Off scale high [facility] Comment on above: Result Comment: Crit ical value result called at 193 on 11/04/21 INR Therapeutic Range A) Pre- [...] heart valves: 3 - 4.5 PERFORMED BY: [address] [address] PATHOLOGIST [employer] FLIP GERMAN M.D. Performed By: #### G LULS #### Point of Care testing , PT Coag (PPP) [Time] 96.2 s High 9.0-12.9 [facility] Comment on above: Performed By: #### G LULS #### Point of Care testing , Serum or plasma alanine engel otransferase measurement without P-5'-P (enzymatic activiOrdered By: Marvin Peter on 11-04-2021 ALT No additional P-5'-P [Catalytic activity/Vol] 7 U/L 10-60 [facility] Serum or plasma albumin/glob ulin mass ratioOrdered By: Marvin Peter on 11-04-2021 Albumin/Globulin [Mass ratio] 0.9 {ratio} [facility] Serum or plasma alkaline bouchra sphatase measurement (enzymatic activity/volume)Ordered By: Marvin Peter on 11-04-2021 ALP [Catalytic activity/Vol] 80 U/L 32-92 [facility] Serum or plasma aspartate am inotransferase measurement (enzymatic activity/volume)Ordered By: Marvin Peter on 11-04-2021 AST [Catalytic activity/Vol] 16 U/L 10-42 [facility] Serum or plasma total biliru bin measurement (mass/volume)Ordered By: Marvin Peter on 11-04-2021 Bilirubin [Mass/Vol] 1.2 mg/dL 0.3-1.2 [facility] Evita Ag Negativeon 11-05-19 22 Ev[facility] Ag Negative Negative Normal Negative [facility] Comment on above: Result Comment: This is a duplicate [facility] SARS Antigen ([facility]) result to be used for statistical tracking purpose only. PERFORMED BY: [address] [place] [address] PATHOLOGIST [employer] FLIP GERMAN M.D. Performed By: #### G LULS #### Point of Care testing , Specific gravity Auto test s trip (U) [Rel density]Ordered By: Marvin Peter on 11-04-2021 Specific gravity (U) [Rel density] 1.029 1.001-1.03 0 [facility] Squamous epithelial cells de tection in urine sediment by light microscopyOrdered By: Marvin Pteer on 11-04-2021 Epithelial cells.squamous LM Ql (Urine sed) 5-9 [HPF] 0-2 [facility] TSH DL <= 0.005 mIU/L QnOrde red By: Enrrique Mota on 11-04-2021 TSH Qn 2.09 m[IU]/L 0.45-5.33 [facility] Thyroid Stimulating Hormoneo n 11-04-2021 TSH Qn 2.09 m[IU]/L Normal 0.45-5.33 [facility] Comment on above: Order Comment: Comme nt addon Result Comment: PERF ORMED BY: [facility] [address] [place] [address] PATHOLOGIST [employer] FLIP GERMAN M.D. Performed By: #### G LULS #### Point of Care testing , Urine Cultureon 11-04-2021 Bacteria identified Cx Nom (U) ORGANISM: Escherichia coli (O:ESCCOL) [place] Count >100,000 Aerobic JIMMY Charge (NUC86) SUSCEPTIBILITY [...] RESISTANT TO ALL B-LACTAM DRUGS. PERFORMED BY: [address] [address] PATHOLOGIST [employer] FLIP GERMAN M.D. Normal [facility] Comment on above: Performed By: #### G IAN #### Point of Care testing , Urine bacteria detection by automated methodOrdered By: Marvin Peter on 11-04-2021 Bacteria Auto Ql (U) 4+ None Seen [facility] Urine clarity by refractomet ry automatedOrdered By: Marvin Peter on 11-04-2021 Clarity Refractometry automated (U) Cloudy Clear [facility] Urine glucose measurement by automated test strip (mass/volume)Ordered By: Marvin Peter on 11-04-2021 Glucose Auto test strip (U) [Mass/Vol] Normal mg/dL Normal [facility] Urine hemoglobin detection b y automated test stripOrdered By: Marvin Peter on 11-04-2021 Hemoglobin Auto test strip Ql (U) 3+ Negative [facility] Urine leukocyte esterase det ection by automated test stripOrdered By: Marvin Peter on 11-04-2021 Leukocyte esterase Auto test strip Ql (U) 3+ Negative [facility] Urobilinogen Auto test strip (U) [Mass/Vol]Ordered By: Marvin Peter on 11-04-2021 Urobilinogen (U) [Mass/Vol] Normal mg/dL Normal [facility] Vitamin D 25 Hydroxy Totalon 11-04-2021 Vitamin D 25 Hydroxy Total 71.4 ng/mL Normal 30-100 [facility] Comment on above: Order Comment: Comme nt addon Result Comment: FREDERIC MIN D STATUS 25(OH)VITAMIN D RANGE (ng/mL) Deficient <20 Insufficient 20 to <30 Sufficient 30 to 100 Reference: Earl MF,Ken WILL, Yoandy PEDERSEN, et al. Evaluation,treatment, and prevention of vitamin D deficiency; an Endocrine Society clinical practice guideline. JCEM. 2010; 96(7):1911-30. PERFORMED BY: [place] [id number] PATHOLOGIST [employer] FLIP GERMAN M.D. Performed By: #### V [id number] ####[facility] [address] [place] [address] [facility] pH Auto test strip (U)Ordere d By: Marvin Peter on 11-04-2021 pH (U) 5.5 [pH] 5.0-9.0 [facility] Prothrombin Time INRon 10-22 INR Coag (PPP) [Relative time] 4.5 {INR} [facility] [employer] Other Prothrombin Time INR [facility] [employer] Other CT head/brain wo conon 10-20 CT head/brain wo con [facility] Main [place] [address] [place] [id number] Scan Report Signed Patient: Alton Barker#: [id number] 987 : 1940 Acct:[id number] Age/Sex: 81 / F ADM Date: 10/19/21 Loc: ER Room: Type: [facility] ER Attending Dr: Copies to: Holger [...] the right parietal region. Impression dictated by: iVjay Holden M.D.10/20/2021 8:09 AM Dictation Location: [place] [address] Transcribed By: [facility] 10/20/21808 Dictated By: Vijay Holden II, MD 10/20/21805 Signed By: 10/20/21808 Normal [facility] XR lumbar spine 2-3V*on XR lumbar spine 2-3V* [facility] [place] [address] XRay Report Signed Patient: Alton Barker MR#: [id number] 987 : 1940 Acct:[id number] Age/Sex: 81 / F ADM Date: 10/19/21 Loc: ER Room: Type: [facility] ER Attending Dr: Copies to: Holger [...] Vijay Holden M.D.10/20/2021 8:11 AM Dictation Location: [place] [address] Transcribed By: [facility] 10/20/21 08 Dictated By: Vijay Holden II, MD 10/20/21808 Signed By: 10/20/21 08 Normal [facility] Urine culture routineOrdered By: Sumanth Lowe on 09-30-2021 Bacteria identified Cx Nom (U) Escherichia coli [facility] Prothrombin Time INRon 09-29 INR Coag (PPP) [Relative time] 3.3 {INR} [facility] [employer] Other Prothrombin Time INR [facility] [employer] Other Automated erythrocytes count in urine sediment (number/area)Ordered By: Sumanth Lowe on 09-28-2021 RBC Auto (Urine sed) [#/Area] 10-19 [HPF] 0-4 [facility] Automated leukocytes count i n urine sediment (number/area)Ordered By: Sumanth Lowe on 09-28-2021 WBC Auto (Urine sed) [#/Area] 20-49 [HPF] 0-4 [facility] Basophils Auto (Bld) [#/Vol] Ordered By: Sumanth Lowe on 09-28-2021 Basophils (Bld) [#/Vol] 0.0 10*3/uL 0.0-0.2 [facility] Basophils/100 WBC Auto (Bld) Ordered By: Sumanth Lowe on 09-28-2021 Basophils/100 WBC (Bld) 0.4 % . [facility] Bilirubin Test strip Ql (U)O rdered By: Sumanth Lowe on 09-28-2021 Bilirubin Ql (U) Negative Negative [facility] Blood hemoglobin measurement (mass/volume)Ordered By: Sumanth Lowe on 09-28-2021 Hemoglobin (Bld) [Mass/Vol] 12.3 g/dL 11.8-15.4 [facility] Blood leukocytes automated c ount (number/volume)Ordered By: Sumanth Lowe on 09-28-2021 WBC (Bld) [#/Vol] 5.1 10*3/uL 4.5-11.0 [facility] Body fluid albumin measureme nt (mass/volume)Ordered By: Sumanth Lowe on 09-28-2021 Albumin (Body fld) [Mass/Vol] 3.3 g/dL 3.2-5.5 [facility] Color Auto (U)Ordered By: Wei Lowe on 09-28-2021 Color (U) Yellow Yellow [facility] Complete Blood Count Auto Di ffon 09-28-2021 Basophils (Bld) [#/Vol] 0.0 10*3/uL Normal 0.0-0.2 [facility] Comment on above: Result Comment: PERF ORMED BY: [facility] [address] [place] [address] PATHOLOGIST [employer] FLIP GERMAN M.D. Performed By: #### C BC, CMP ####[facility] [id number] [place], [address] Basophils/100 WBC (Bld) 0.4 % Normal . [facility] Comment on above: Performed By: #### C BC, CMP ####[address] Eosinophils (Bld) [#/Vol] 0.0 10*3/uL Normal 0.0-0.45 [facility] Comment on above: Performed By: #### C BC, CMP ####[address] Eosinophils/100 WBC (Bld) 0.4 % Normal . [facility] Comment on above: Performed By: #### C CHEN, CMP ####[address] Erythrocyte distribution width (RBC) [Ratio] 15.9 % High 11.9-15.3 [facility] Comment on above: Performed By: #### C CHEN, CMP ####[address] Hematocrit (Bld) [Volume fraction] 37.5 % Normal 34.0-46.4 [facility] Comment on above: Performed By: #### C CHEN, CMP ####[address] Hemoglobin (Bld) [Mass/Vol] 12.3 g/dL Normal 11.8-15.4 [facility] Comment on above: Performed By: #### C BC, CMP ####[address] Lymphocytes (Bld) [#/Vol] 0.8 10*3/uL Low 1.00-4.8 [facility] Comment on above: Performed By: #### C BC, CMP ####[address] Lymphocytes/100 WBC (Bld) 16.2 % Normal . [facility] Comment on above: Performed By: #### C BC, CMP ####[address] MCH (RBC) [Entitic mass] 29.5 pg Normal 24.7-34.3 [facility] Comment on above: Performed By: #### C CHEN, CMP ####[address] MCV (RBC) [Entitic vol] 90.3 fL Normal 80-100 [facility] Comment on above: Performed By: #### C CHEN, CMP ####[address] Mean Corpuscular HGB Conc 32.7 g/dL Normal 32.0-35.0 [facility] Comment on above: Performed By: #### C CHEN, CMP ####[address] Monocytes (Bld) [#/Vol] 0.7 10*3/uL Normal 0.0-0.8 [facility] Comment on above: Performed By: #### C CHEN, CMP ####[address] Monocytes/100 WBC (Bld) 13.9 % Normal . [facility] Comment on above: Performed By: #### C CHEN, CMP ####[address] Neutrophils (Bld) [#/Vol] 3.5 10*3/uL Normal 1.8-7.7 [facility] Comment on above: Performed By: #### C CHEN, CMP ####[address] Neutrophils/100 WBC (Bld) 69.1 % Normal . [facility] Comment on above: Performed By: #### C CHEN, CMP ####[place] [id number] [facility] Nucleated RBC/100 WBC (Bld) [Ratio] 0.0 % Normal 0-0.5 [facility] Comment on above: Performed By: #### C CHEN, CMP ####[address] Platelet mean volume (Bld) [Entitic vol] 8.6 fL Normal 6.3-10.7 [facility] Comment on above: Performed By: #### C BC, CMP ####[address] [address] [facility] Platelets (Bld) [#/Vol] 154 10*3/uL Normal 150-450 [facility] Comment on above: Performed By: #### C BC, CMP ####[place] [id number] [facility] RBC (Bld) [#/Vol] 4.16 10*6/uL Normal 3.60-5.00 [facility] Comment on above: Performed By: #### C BC, CMP ####[place] [id number] [facility] WBC (Bld) [#/Vol] 5.1 10*3/uL Normal 4.5-11.0 [facility] Comment on above: Performed By: #### C BC, CMP ####[place] [id number] [facility] Comprehensive Metabolic Pane loco 09-28-2021 Albumin [Mass/Vol] 3.3 g/dL Normal 3.2-5.5 [facility] Comment on above: Performed By: #### C BC, CMP ####[place] [id number] [facility] Albumin/Globulin [Mass ratio] 0.9 {ratio} Normal [facility] Comment on above: Performed By: #### C BC, CMP ####[place] [id number] [facility] ALP [Catalytic activity/Vol] 51 U/L Normal 32-92 [facility] Comment on above: Performed By: #### C BC, CMP ####[place] [id number] [facility] ALT [Catalytic activity/Vol] 7 U/L Low 10-60 [facility] Comment on above: Performed By: #### C BC, CMP ####[place] [id number] [facility] AST [Catalytic activity/Vol] 20 U/L Normal 10-42 [facility] Comment on above: Performed By: #### C BC, CMP ####[place] [address] [place] [id number] [facility] Bilirubin [Mass/Vol] 1.0 mg/dL Normal 0.3-1.2 [facility] Comment on above: Performed By: #### C BC, CMP ####[place] [address] [place] [id number] [facility] Calcium [Mass/Vol] 8.9 mg/dL Normal 8.2-10.2 [facility] Comment on above: Performed By: #### C CHEN, CMP ####[place] [address] [place] [id number] [facility] Chloride [Moles/Vol] 95 mmol/L Normal 95-114 [facility] Comment on above: Performed By: #### C CHEN, CMP ####[place] [address] [place] [id number] [facility] CO2 [Moles/Vol] 29.5 mmol/L Normal 22.0-30.0 [facility] Comment on above: Performed By: #### C CHEN, CMP ####[place] [address] [place] [id number] [facility] Creatinine [Mass/Vol] 0.67 mg/dL Normal 0.44-1.03 [facility] Comment on above: Performed By: #### C BC, CMP ####[place] [id number] [facility] Creatinine Clr Calc Pharmacy 66.85 Normal [facility] Comment on above: Result Comment: PERF ORMED BY: [facility] [address] [place] [address] PATHOLOGIST [employer] FLIP GERMAN M.D. Performed By: #### C BC, CMP ####[place] [address] [place] [id number] [facility] Estimated GFR ( Trista > 60 Normal [facility] Comment on above: Result Comment: GFR estimated reference range: According to KDOQI guidelines, <60 ml/min/1.73m2 is sufficient to diagnose a patient with chronic kidney disease. Performed By: #### C BC, CMP ####[place] [address] [place] [address] [facility] Estimated GFR (Non- Am > 60 Normal [facility] Comment on above: Performed By: #### C BC, CMP ####[place] [address] [place] [address] [facility] Globulin (S) [Mass/Vol] 3.6 g/dL [facility] Comment on above: Performed By: #### C BC, CMP ####[place] [address] [place] [address] [facility] Glucose [Mass/Vol] 146 mg/dL High 70-100 [facility] Comment on above: Result Comment: [facility] Glucose Reference Range is dependent on time and content of last meal. Glucose of more than 200 mg/dL in a nonstressed, ambulatory subject supports the diagnosis of Diabetes Mellitus. ADA recommended reference range Performed By: #### C BC, CMP ####[address] [address] [facility] Potassium [Moles/Vol] 3.5 mmol/L Normal 3.5-5.1 [facility] Comment on above: Performed By: #### C BC, CMP ####[address] [address] [facility] Protein [Mass/Vol] 6.9 g/dL Normal 6.1-7.9 [facility] Comment on above: Performed By: #### C BC, CMP ####[address] [address] [facility] Sodium [Moles/Vol] 136 mmol/L Normal 136-146 [facility] Comment on above: Performed By: #### C BC, CMP ####[address] [address] [facility] Urea nitrogen [Mass/Vol] 7 mg/dL Low 9-23 [facility] Comment on above: Performed By: #### C BC, CMP ####[address] [place] [address] [facility] Creatinine and Glomerular fi ltration rate.predicted panel (S/P/Bld)Ordered By: Sumanth Lowe on 09-28-2021 Creatinine [Mass/Vol] 0.67 mg/dL 0.44-1.03 [facility] Dipstick and Microscopicon 0 09-28-2021 Appearance (U) Cloudy Critically abnormal Clear [facility] Comment on above: Order Comment: Name Collection Type:: Clean-Voided Midstream Performed By: #### G LULS #### Point of Care testing , Bacteria,Urine 3+ High None Seen [facility] Comment on above: Order Comment: Name Collection Type:: Clean-Voided Midstream Performed By: #### G LULS #### Point of Care testing , Bilirubin,Urine Negative Normal Negative [facility] Comment on above: Order Comment: Name Collection Type:: Clean-Voided Midstream Performed By: #### G LULS #### Point of Care testing , Color (U) Yellow Normal Yellow [facility] Comment on above: Order Comment: Name Collection Type:: Clean-Voided Midstream Performed By: #### G LULS #### Point of Care testing , Glucose Ql (U) Normal Normal Normal [facility] Comment on above: Order Comment: Name Collection Type:: Clean-Voided Midstream Performed By: #### G LULS #### Point of Care testing , Hyaline Casts,Urine 0-8 Normal 0-8 [facility] Comment on above: Order Comment: Name Collection Type:: Clean-Voided Midstream Performed By: #### G LULS #### Point of Care testing , Ketones Ql (U) 2+ High Negative [facility] Comment on above: Order Comment: Name Collection Type:: Clean-Voided Midstream Performed By: #### G LULS #### Point of Care testing , Leukocyte esterase Test strip Ql (U) 2+ High Negative [facility] Comment on above: Order Comment: Name Collection Type:: Clean-Voided Midstream Performed By: #### G LULS #### Point of Care testing , Nitrite,Urine Positive High Negative [facility] Comment on above: Order Comment: Name Collection Type:: Clean-Voided Midstream Performed By: #### G LULS #### Point of Care testing , Occult Blood,Urine 2+ High Negative [facility] Comment on above: Order Comment: Name Collection Type:: Clean-Voided Midstream Result Comment: PERF ORMED BY: [facility] [address] PATHOLOGIST [employer] FLIP GERMAN M.D. Performed By: #### G LULS #### Point of Care testing , pH (U) 6.5 [pH] Normal 5.0-9.0 [facility] Comment on above: Order Comment: Name Collection Type:: Clean-Voided Midstream Performed By: #### G LULS #### Point of Care testing , Protein,Urine Negative Normal Negative [facility] Comment on above: Order Comment: Name Collection Type:: Clean-Voided Midstream Performed By: #### G LULS #### Point of Care testing , RBC,Urine 10-19 High 0-4 [facility] Comment on above: Order Comment: Name Collection Type:: Clean-Voided Midstream Performed By: #### G LULS #### Point of Care testing , Specificy [place],Urine 1.013 Normal 1.001-1.03 0 [facility] Comment on above: Order Comment: Name Collection Type:: Clean-Voided Midstream Performed By: #### G LULS #### Point of Care testing , Squamous Epithelial Cell,Urine None Seen Normal 0-2 [facility] Comment on above: Order Comment: Name Collection Type:: Clean-Voided Midstream Performed By: #### G LULS #### Point of Care testing , Urobilinogen,Urine Normal Normal Normal [facility] Comment on above: Order Comment: Name Collection Type:: Clean-Voided Midstream Performed By: #### G LULS #### Point of Care testing , WBC,Urine 20-49 High 0-4 [facility] Comment on above: Order Comment: Name Collection Type:: Clean-Voided Midstream Performed By: #### G LULS #### Point of Care testing , Yeast,Urine None Seen Normal None Seen [facility] Comment on above: Order Comment: Name Collection Type:: Clean-Voided Midstream Result Comment: PERF ORMED BY: [place] [id number] PATHOLOGIST [employer] FLIP GERMAN M.D. Performed By: #### G LULS #### Point of Care testing , ECG 12 lead ECGon 09-28-2021 ECG 12 lead ECG [facility] Main [place] [id number] Electrocardiograph Report Signed Patient: Alton Barker MR#: [id number] 987 : 1940 Acct:[id number] Age/Sex: 81 / F ADM Date: 09/27/21 Loc: ER Room: Type: [facility] ER Attending Dr: Ordering Provider: Sumanth Lowe [...] Signed By Sumanth Lowe DO 0601 Normal [facility] Eosinophils Auto (Bld) [#/Vo l]Ordered By: Sumanth Lowe on 09-28-2021 Eosinophils (Bld) [#/Vol] 0.0 10*3/uL 0.0-0.45 [facility] Eosinophils/100 WBC Auto (Bl d)Ordered By: Sumanth Lowe on 09-28-2021 Eosinophils/100 WBC (Bld) 0.4 % . [facility] Erythrocyte distribution wid th Auto (RBC) [Ratio]Ordered By: Sumanth Lowe on 09-28-2021 Erythrocyte distribution width (RBC) [Ratio] 15.9 % 11.9-15.3 [facility] Estimated glomerular filtrat ion rate (GFR) non- AmericanOrdered By: Sumanth Lowe on 09-28-2021 GFR/1.73 sq M.predicted among non-blacks MDRD (S/P/Bld) [Vol rate/Area] > 60 mL/Min [facility] Globulin Calc (S) [Mass/Vol] Ordered By: Sumanth Lowe on 09-28-2021 Globulin (S) [Mass/Vol] 3.6 g/dL [facility] Hematocrit Auto (Bld) [Volum e fraction]Ordered By: Sumanth Lowe on 09-28-2021 Hematocrit (Bld) [Volume fraction] 37.5 % 34.0-46.4 [facility] Ketones Auto test strip (U) [Mass/Vol]Ordered By: Sumanth Lowe on 09-28-2021 Ketones (U) [Mass/Vol] 2+ Negative [facility] Laboratory - Hematology and Cell countsOrdered By: Sumanth Lowe on 09-28-2021 Nucleated RBC/100 WBC (Bld) [Ratio] 0.0 % 0-0.5 [facility] Laboratory - UrinalysisOrder ed By: Sumanth Lowe on 09-28-2021 Hyaline casts LM Ql (Urine sed) 0-8 [LPF] 0-8 [facility] Lymphocytes Auto (Bld) [#/Vo l]Ordered By: Sumanth Lowe on 09-28-2021 Lymphocytes (Bld) [#/Vol] 0.8 10*3/uL 1.00-4.8 [facility] Lymphocytes/100 WBC Auto (Bl d)Ordered By: Sumanth Lowe on 09-28-2021 Lymphocytes/100 WBC (Bld) 16.2 % . [facility] MCH Auto (RBC) [Entitic mass ]Ordered By: Sumanth Lowe on 09-28-2021 MCH (RBC) [Entitic mass] 29.5 pg 24.7-34.3 [facility] MCHC Auto (RBC) [Mass/Vol]Or dered By: Sumanth Lowe on 09-28-2021 MCHC (RBC) [Mass/Vol] 32.7 g/dL 32.0-35.0 [facility] MCV Auto (RBC) [Entitic vol] Ordered By: Sumanth Lowe on 09-28-2021 MCV (RBC) [Entitic vol] 90.3 fL 80-100 [facility] Monocytes Auto (Bld) [#/Vol] Ordered By: Sumanth Lowe on 09-28-2021 Monocytes (Bld) [#/Vol] 0.7 10*3/uL 0.0-0.8 [facility] Monocytes/100 WBC Auto (Bld) Ordered By: Sumanth Lowe on 09-28-2021 Monocytes/100 WBC (Bld) 13.9 % . [facility] Neutrophils Auto (Bld) [#/Vo l]Ordered By: Sumanth Lowe on 09-28-2021 Neutrophils (Bld) [#/Vol] 3.5 10*3/uL 1.8-7.7 [facility] Neutrophils/100 WBC Auto (Bl d)Ordered By: Sumanth Lowe on 09-28-2021 Neutrophils/100 WBC (Bld) 69.1 % . [facility] Nitrite Test strip Ql (U)Ord ered By: Sumanth Lowe on 09-28-2021 Nitrite Ql (U) Positive Negative [facility] No Panel InformationOrdered By: Sumanth Lowe on 09-28-2021 Estimated GFR () > 60 mL/Min [facility] Comment on above: GFR estimated refere nce range: According to KDOQI guidelines, <60 ml/min/1.73m2 is sufficient to diagnose a patient with chronic kidney disease. Pharmacy Creatinine Clearance (Chem 66.85 [facility] Platelet mean volume Auto (B ld) [Entitic vol]Ordered By: Sumanth Lowe on 09-28-2021 Platelet mean volume (Bld) [Entitic vol] 8.6 fL 6.3-10.7 [facility] Platelets Auto (Bld) [#/Vol] Ordered By: Sumanth Lowe on 09-28-2021 Platelets (Bld) [#/Vol] 154 10*3/uL 150-450 [facility] Protein Auto test strip (U) [Mass/Vol]Ordered By: Sumanth Lowe on 09-28-2021 Protein (U) [Mass/Vol] Negative Negative [facility] Protein [Mass/volume] in Ser um or PlasmaOrdered By: Sumanth Lowe on 09-28-2021 Protein [Mass/Vol] 6.9 g/dL 6.1-7.9 [facility] RBC Auto (Bld) [#/Vol]Ordere d By: Sumanth Lowe on 09-28-2021 RBC (Bld) [#/Vol] 4.16 10*6/uL 3.60-5.00 [facility] Serum or plasma alanine engel otransferase measurement without P-5'-P (enzymatic activiOrdered By: Sumanth Lowe on 09-28-2021 ALT No additional P-5'-P [Catalytic activity/Vol] 7 U/L 10-60 [facility] Serum or plasma albumin/glob ulin mass ratioOrdered By: Sumanth Lowe on 09-28-2021 Albumin/Globulin [Mass ratio] 0.9 {ratio} [facility] Serum or plasma alkaline bouchra sphatase measurement (enzymatic activity/volume)Ordered By: Sumanth Lowe on 09-28-2021 ALP [Catalytic activity/Vol] 51 U/L 32-92 [facility] Serum or plasma aspartate am inotransferase measurement (enzymatic activity/volume)Ordered By: Sumanth Lowe on 09-28-2021 AST [Catalytic activity/Vol] 20 U/L 10-42 [facility] Serum or plasma calcium alondra urement (mass/volume)Ordered By: Sumanth Lowe on 09-28-2021 Calcium [Mass/Vol] 8.9 mg/dL 8.2-10.2 [facility] Serum or plasma chloride link surement (moles/volume)Ordered By: Sumanth Lowe on 09-28-2021 Chloride [Moles/Vol] 95 mmol/L 95-114 [facility] Serum or plasma glucose alondra urement (mass/volume)Ordered By: Sumanth Lowe on 09-28-2021 Glucose [Mass/Vol] 146 mg/dL 70-100 [facility] Comment on above: ADA recommended refe rence range Random Glucose Reference Range is dependent on time and content of last meal. Glucose of more than 200 mg/dL in a nonstressed, ambulatory subject supports the diagnosis of Diabetes Mellitus. Serum or plasma potassium me asurement (moles/volume)Ordered By: Sumanth Lowe on 09-28-2021 Potassium [Moles/Vol] 3.5 mmol/L 3.5-5.1 [facility] Serum or plasma sodium measu rement (moles/volume)Ordered By: Sumanth Lowe on 09-28-2021 Sodium [Moles/Vol] 136 mmol/L 136-146 [facility] Serum or plasma total biliru bin measurement (mass/volume)Ordered By: Sumanth Lowe on 09-28-2021 Bilirubin [Mass/Vol] 1.0 mg/dL 0.3-1.2 [facility] Serum or plasma total carbon dioxide measurement (moles/volume)Ordered By: Sumanth Lowe on 09-28-2021 CO2 [Moles/Vol] 29.5 mmol/L 22.0-30.0 [facility] Serum or plasma urea nitroge n measurement (mass/volume)Ordered By: Sumanth Lowe on 09-28-2021 Urea nitrogen [Mass/Vol] 7 mg/dL 9- [facility] Specific gravity Auto test s trip (U) [Rel density]Ordered By: Sumanth Lowe on 09-28-2021 Specific gravity (U) [Rel density] 1.013 1.001-1.03 0 [facility] Squamous epithelial cells de tection in urine sediment by light microscopyOrdered By: Sumanth Lowe on 09-28-2021 Epithelial cells.squamous LM Ql (Urine sed) None seen [HPF] 0-2 [facility] Urine Cultureon 09-28-2021 Bacteria identified Cx Nom (U) ORGANISM: Escherichia coli (O:ESCCOL) [place] Count >100,000 Aerobic JIMMY Charge (NUC86) SUSCEPTIBILITY [...] RESISTANT TO ALL B-LACTAM DRUGS. PERFORMED BY: [address] [address] PATHOLOGIST [employer]UST[employer] GROUNDSKEEPER FLIP GERMAN M.D. [facility] Comment on above: Performed By: #### G LUCOLLIN #### Point of Care testing , Urine bacteria detection by automated methodOrdered By: Sumanth Lowe on 09-28-2021 Bacteria Auto Ql (U) 3+ None Seen [facility] Urine clarity by refractomet ry automatedOrdered By: Sumanth Lowe on 09-28-2021 Clarity Refractometry automated (U) Cloudy Clear [facility] Urine glucose measurement by automated test strip (mass/volume)Ordered By: Sumanth Lowe on 09-28-2021 Glucose Auto test strip (U) [Mass/Vol] Normal mg/dL Normal [facility] Urine hemoglobin detection b y automated test stripOrdered By: Sumanth Lowe on 09-28-2021 Hemoglobin Auto test strip Ql (U) 2+ Negative [facility] Urine leukocyte esterase det ection by automated test stripOrdered By: Sumanth Lowe on 09-28-2021 Leukocyte esterase Auto test strip Ql (U) 2+ Negative [facility] Urobilinogen Auto test strip (U) [Mass/Vol]Ordered By: Sumanth Lowe on 09-28-2021 Urobilinogen (U) [Mass/Vol] Normal mg/dL Normal [facility] XR chest 2V*on 09-28-2021 XR chest 2V* [facility] [place] [address] XRay Report Signed Patient: Alton Barker MR#: [id number] : 1940 Acct:[id number] Age/Sex: 81 / F ADM Date: 09/27/21 Loc: ER Room: Type: [facility] ER Attending Dr: Copies to: Sumanth [...] Malin Jr., D.OJoann09/28/2021 9:27 AM Dictation Location: [place] [address] Transcribed By: [facility] 09/28/21926 Dictated By: Alcides Malin Jr, DO 09/28/21926 Signed By: 09/28/21926 Normal [facility] Yeast detection in urine sed iment by light microscopyOrdered By: Sumanth Lowe on 09-28-2021 Yeast LM Ql (Urine sed) None seen [HPF] None Seen [facility] pH Auto test strip (U)Ordere d By: Sumanth Lowe on 09-28-2021 pH (U) 6.5 [pH] 5.0-9.0 [facility] Prothrombin Time INRon 08-26 INR Coag (PPP) [Relative time] 2.1 {INR} Britton Yekra Other Prothrombin Time INR [facility] Yekra Other Prothrombin Time INRon 08-05 INR Coag (PPP) [Relative time] 2.3 {INR} Doujiao Other Prothrombin Time INR [facility] Henable Other Complete Blood Count with Au to Diffon 07-16-2021 Basophils (Bld) [#/Vol] 0.02 10*3/uL Normal 0.00-0.20 [facility] Comment on above: Performed By: #### L IPD, TSH, CMP, VITD, CBCAD #### [facility] [address], [place] [id number] Basophils/100 WBC (Bld) 0.3 % Normal [facility] Comment on above: Performed By: #### L IPD, TSH, CMP, VITD, CBCAD #### [facility] [address], [place] [id number] Eosinophils (Bld) [#/Vol] 0.17 10*3/uL Normal 0.02-0.50 [facility] Comment on above: Performed By: #### L IPD, TSH, CMP, VITD, CBCAD #### [facility] [address], [place] [id number] Eosinophils/100 WBC (Bld) 2.8 % Normal [facility] Comment on above: Performed By: #### L IPD, TSH, CMP, VITD, CBCAD #### [facility] [address], [place] [id number] Erythrocyte distribution width (RBC) [Ratio] 15.0 % Normal 11.0-15.0 [facility] Comment on above: Performed By: #### L IPD, TSH, CMP, VITD, CBCAD #### [facility] [address], [place] [id number] Hematocrit (Bld) [Volume fraction] 39.2 % Normal 35.0-47.0 [facility] Comment on above: Performed By: #### L IPD, TSH, CMP, VITD, CBCAD #### [facility] [address], [place] [id number] Hemoglobin (Bld) [Mass/Vol] 12.0 g/dL Normal 11.6-15.5 [facility] Comment on above: Performed By: #### L IPD, TSH, CMP, VITD, CBCAD #### [facility] [address], [place] [id number] Lymphocytes (Bld) [#/Vol] 1.7 10*3/uL Normal 0.9-3.9 [facility] Specialist Comment on above: Performed By: #### L IPD, TSH, CMP, VITD, CBCAD #### [facility] [address], [place] [id number] Lymphocytes/100 WBC (Bld) 27.5 % Normal [facility] Comment on above: Performed By: #### L IPD, TSH, CMP, VITD, CBCAD #### [facility] [address], [place] [id number] MCH (RBC) [Entitic mass] 29.4 pg Normal 27.0-33.0 [facility] Comment on above: Performed By: #### L IPD, TSH, CMP, VITD, CBCAD #### [facility] [address], [place] [id number] MCHC (RBC) [Mass/Vol] 30.6 g/dL Low 32.0-36.0 [facility] Comment on above: Performed By: #### L IPD, TSH, CMP, VITD, CBCAD #### [facility] [address], [place] [id number] MCV (RBC) [Entitic vol] 96 fL Normal 80-100 [facility] Comment on above: Performed By: #### L IPD, TSH, CMP, VITD, CBCAD #### [facility] [address], [place] [id number] Monocytes (Bld) [#/Vol] 0.6 10*3/uL Normal 0.2-0.9 [facility] Comment on above: Performed By: #### L IPD, TSH, CMP, VITD, CBCAD #### [facility] [address], [place] [id number] Monocytes/100 WBC (Bld) 10.5 % Normal [facility] Special[facility] Comment on above: Performed By: #### L IPD, TSH, CMP, VITD, CBCAD #### [facility] [address], [place] [id number] Neutrophils (Bld) [#/Vol] 3.6 10*3/uL Normal 1.5-7.8 [facility] Comment on above: Performed By: #### L IPD, TSH, CMP, VITD, CBCAD #### [facility] [address], [place] [id number] Neutrophils/100 WBC (Bld) 58.6 % Normal [facility] Special[facility] Comment on above: Performed By: #### L IPD, TSH, CMP, VITD, CBCAD #### [facility] [address], [place] [id number] Platelet mean volume (Bld) [Entitic vol] 11.40 fL Normal 7.50-12.50 [facility] Comment on above: Performed By: #### L IPD, TSH, CMP, VITD, CBCAD #### [facility] [address], [place] [id number] Platelets (Bld) [#/Vol] 193 10*3/uL Normal 140-400 [facility] Comment on above: Performed By: #### L IPD, TSH, CMP, VITD, CBCAD #### [facility] [address], [place] [id number] RBC (Bld) [#/Vol] 4.08 10*6/uL Normal 3.90-5.20 [facility] Comment on above: Performed By: #### L IPD, TSH, CMP, VITD, CBCAD #### [facility] [address], [place] [id number] RDW-SD 52.8 fL High 37.0-50.0 [facility] Comment on above: Performed By: #### L IPD, TSH, CMP, VITD, CBCAD #### [facility] [address], [place] [id number] WBC (Bld) [#/Vol] 6.1 10*3/uL Normal 3.8-11.0 [facility] [place] [facility] Comment on above: Performed By: #### L IPD, TSH, CMP, VITD, CBCAD #### [facility] [address], [place] [id number] Comprehensive Metabolic Pane loco 07-16-2021 Albumin [Mass/Vol] 4.1 g/dL Normal 3.6-5.1 [facility] Specialist Comment on above: Performed By: #### L IPD, TSH, CMP, VITD, CBCAD #### [facility] [address], [place] [id number] Albumin/Globulin [Mass ratio] 1.5 {ratio} Normal 1.0-2.5 [facility] Comment on above: Performed By: #### L IPD, TSH, CMP, VITD, CBCAD #### [facility] [address], [place] [id number] ALP [Catalytic activity/Vol] 104 U/L Normal 35-119 [facility] Comment on above: Performed By: #### L IPD, TSH, CMP, VITD, CBCAD #### [facility] [address], [place] [id number] ALT [Catalytic activity/Vol] 7 U/L Normal 6-33 [facility] Comment on above: Result Comment: 02/11 Female reference range changed. Performed By: #### L IPD, TSH, CMP, VITD, CBCAD #### [facility] [address], [place] [id number] Anion gap [Moles/Vol] 18 mmol/L Normal 12-20 [facility] Specialist Comment on above: Result Comment: Effe ctive 03/19/2019 reference range changed. Performed By: #### L IPD, TSH, CMP, VITD, CBCAD #### [facility] [address], [place] [id number] AST [Catalytic activity/Vol] 16 U/L Normal 9-34 [facility] Comment on above: Performed By: #### L IPD, TSH, CMP, VITD, CBCAD #### [facility] [address], [place] [id number] Bilirubin [Mass/Vol] 0.92 mg/dL Normal 0.30-1.20 [facility] [place] [facility] Comment on above: Performed By: #### L IPD, TSH, CMP, VITD, CBCAD #### [facility] [address], [place] [id number] BUN/CREA 29 Ratio High 6-22 [facility] Comment on above: Performed By: #### L IPD, TSH, CMP, VITD, CBCAD #### [facility] [address], [place] [id number] Calcium [Mass/Vol] 9.5 mg/dL Normal 8.6-10.2 [facility] Comment on above: Performed By: #### L IPD, TSH, CMP, VITD, CBCAD #### [facility] [address], [place] [id number] Chloride [Moles/Vol] 99 mmol/L Normal 98-107 [facility] Comment on above: Performed By: #### L IPD, TSH, CMP, VITD, CBCAD #### [facility] [address], [place] [id number] CO2 [Moles/Vol] 26 mmol/L Normal 20-31 [facility] Comment on above: Performed By: #### L IPD, TSH, CMP, VITD, CBCAD #### [facility] [address], [place] [id number] Creatinine [Mass/Vol] 0.5 mg/dL Low 0.6-1.4 [facility] Comment on above: Performed By: #### L IPD, TSH, CMP, VITD, CBCAD #### [facility] [address], [place] [id number] eGFRAA 135 mL/min/1.73m2 Normal >60 [facility] Specialist Comment on above: Performed By: #### L IPD, TSH, CMP, VITD, CBCAD #### [facility] [address], [place] [id number] eGFRNAA 111 mL/min/1.73m2 Normal >60 [facility] Specialist Comment on above: Performed By: #### L IPD, TSH, CMP, VITD, CBCAD #### [facility] [address], [place] [id number] Globulin (S) [Mass/Vol] 2.7 g/dL Normal 1.9-3.7 [facility] Comment on above: Performed By: #### L IPD, TSH, CMP, VITD, CBCAD #### [facility] [address], [place] [id number] Glucose [Mass/Vol] 222 mg/dL High 65-99 [facility] Comment on above: Result Comment: For FASTING Glucose --- ADA reference ranges: Normal 65-99 mg/dl Prediabetes 100-125 Diabetes >/= 126 Performed By: #### L IPD, TSH, CMP, VITD, CBCAD #### [facility] [address], [place] [id number] Potassium [Moles/Vol] 4.7 mmol/L Normal 3.5-5.5 [facility] Comment on above: Performed By: #### L IPD, TSH, CMP, VITD, CBCAD #### [facility] [address], [place] [id number] Protein [Mass/Vol] 6.8 g/dL Normal 6.1-8.1 [facility] Comment on above: Performed By: #### L IPD, TSH, CMP, VITD, CBCAD #### [facility] [address], [place] [id number] Sodium [Moles/Vol] 138 mmol/L Normal 135-146 [facility] Comment on above: Performed By: #### L IPD, TSH, CMP, VITD, CBCAD #### [facility] [address], [place] [id number] Urea nitrogen [Mass/Vol] 15 mg/dL Normal 7-25 [facility] Comment on above: Performed By: #### L IPD, TSH, CMP, VITD, CBCAD #### [facility] [address], [place] [id number] Hemoglobin A1Con 07-16-2021 EAG 194.38 Normal [facility] Comment on above: Performed By: #### A 1C #### [facility] [address], [place] [id number] HbA1c (Bld) [Mass fraction] 8.4 % High 4.0-6.0 [facility] Comment on above: Performed By: #### A 1C #### [facility] [address], [place] [id number] Lipid Panelon 07-16-2021 Cholesterol [Mass/Vol] 172 mg/dL Normal 125-200 [facility] Comment on above: Result Comment: Low risk < 200mg/dL Borderline risk 201-239 mg/dl High risk > or equal to 240 Performed By: #### L IPD, TSH, CMP, VITD, CBCAD #### [facility] [address], [place] [id number] Cholesterol in HDL [Mass/Vol] 57 mg/dL Normal >40 [facility] Special[facility] Comment on above: Result Comment: High Cardiovascular Risk HDL <40 mg/dL Low Cardiovascular Risk HDL > or equal to 60 mg/dl Performed By: #### L IPD, TSH, CMP, VITD, CBCAD #### [facility] [address], [place] [id number] Cholesterol in LDL [Mass/Vol] 88 mg/dL Normal [facility] Specialist Comment on above: Result Comment: LDL ATP III CLASSIFICATION LDL less than 100 mg/dl Optimal LDL 100-129 mg/dl Near or above optimal LDL 130-159 Borderline high LDL 160-189 High LDL greater than 189 mg/dl Very High Performed By: #### L IPD, TSH, CMP, VITD, CBCAD #### [facility] [address], [place] [id number] Cholesterol in VLDL [Mass/Vol] 27 mg/dL Normal [facility] Specialist Comment on above: Performed By: #### L IPD, TSH, CMP, VITD, CBCAD #### [facility] [address], [place] [id number] Cholesterol.total/Cho lesterol in HDL [Mass ratio] 3 {ratio} Normal [facility] Specialist Comment on above: Performed By: #### L IPD, TSH, CMP, VITD, CBCAD #### [facility] [address], [place] [id number] Triglyceride [Mass/Vol] 133 mg/dL Normal 30-150 [facility] Specialist Comment on above: Result Comment: TRIG ATPIII CLASSIFICATIONS TRIG less than 150 mg/dl Normal TRIG 150-199 mg/dl Borderline High TRIG 200-500 mg/dl High TRIG greather than 500 mg/dl Very High Performed By: #### L IPD, TSH, CMP, VITD, CBCAD #### [facility] [address], [place] [id number] TSHon 07-16-2021 TSH 1.480 uIU/mL Normal 0.400-4.50 0 [facility] Comment on above: Performed By: #### L IPD, TSH, CMP, VITD, CBCAD #### [facility] [address], [place] [id number] Vitamin B12on 07-16-2021 Cobalamin (Vitamin B12) [Mass/Vol] 1009 pg/mL High 211-946 [facility] Comment on above: Performed By: #### B 12 #### [facility] [address], [place] [id number] Vitamin D 25-OHon 07-16-2021 VIT D 25 OH 56 ng/ml Normal >29 [facility] Comment on above: Result Comment: Frederic min D Status Deficiency <20 ng/mL Insufficiency 20-29 ng/mL Optimal 30-100 ng/mL Possible Toxicity >=150 ng/mL Performed By: #### L IPD, TSH, CMP, VITD, CBCAD #### [facility] [address], [place] [id number] Prothrombin Time INRon 06-10 INR Coag (PPP) [Relative time] 5.2 {INR} Doujiao Other Prothrombin Time INR [facility] Yekra Other Prothrombin Time INRon 05-26 INR Coag (PPP) [Relative time] 3.9 {INR} Doujiao Other Prothrombin Time INR [facility] Yekra Other Prothrombin Time INRon 03-25 INR Coag (PPP) [Relative time] 3.2 {INR} Doujiao Other Prothrombin Time INR [facility] Yekra Other Prothrombin Time INRon 02-25 INR Coag (PPP) [Relative time] 1.9 {INR} Doujiao Other Prothrombin Time INR [facility] Other Prothrombin Time INRon 01-28 INR Coag (PPP) [Relative time] 2.2 {INR} Doujiao Other Prothrombin Time INR [facility] Other Prothrombin Time INRon 12-10 INR Coag (PPP) [Relative time] 2.4 {INR} Doujiao Other Prothrombin Time INR [facility] Other Office Visit (Neuro-Movement -PD)on 11-01-2017 Office Visit (Vvdrw-Bphfouvy-HO) History of Present IllnessALTON BARKER is here [...] asleep and no acting out of dreams. Denhoff Sleepiness Scale is 14. She reports concern [...] (Z63.4) Allergies Vicodin TABS Recorded By: Aliya Huntre; 06/25/2016 2:07:33 PM Current Meds Medication NameInstructionReasonBaby [...] MG Oral Tablet Vitals Vital Signs Recorded: [id number] 01:33PMHeart Oalg44Hcohqlty618, [id number], CBPDhfsbm185 lb 1 ozBMI Hbtqtfjyxb31.59BSA Calculated2.27 Physical ExamConstitutional: General appearance: no acute [...] disease; KISHOR = N; [facility]; Last Updated By: System, Beauty Noted; 10/26/2017 2:12:16 PM Provider Josefina is a [...] and treatment options. 25 minutes was spent [id number] in the visit. Patient Discussion/SummaryI am recommending starting Sinemet 0.5 tablets three times daily for 1 week with meals and then increase the first dose to 1 tablet. Follow up in 3 months. Signatures Electronically signed by : Tyree Perez MD; Nov 01 2017 8:36AM EST (Author) Normal [facility] Vital Signs Date Time Vital Sign Value Performing Clinician Faci lity 01-20-2023 14:52-0500 Body height 167.6 cm Gloria Perez APRN.CNP Work Phone: [facility] 01-20-2023 14:52-0500 SaO2% (BldA) [Mass fraction] 98 % Gloria Perez APRN.CNP Work Phone: [facility] 07-08-2022 14:54-0400 Body height 167.6 cm Gloria Perez APRN.CNP Work Phone: [facility] 07-08-2022 14:54-0400 Body weight 85.14 kg Gloria Perez APRN.CNP Work Phone: [facility] 07-08-2022 14:54-0400 SaO2% (BldA) [Mass fraction] 98 % Gloria Perez APRN.BIOMEDICAL ENGINEERING DIRECTOR Work Phone: [facility] 05-20-2022 09:30-0500 Diastolic blood pressure 60 mm[Hg] DO Honey Rabago Work Phone: [facility] 05-20-2022 09:30-0500 Heart rate 89 /min DO Honey Vaschak Work Phone: [facility] 05-20-2022 09:30-0500 Systolic blood pressure 106 mm[Hg] DO Honey Vaschak Work Phone: [facility] 11-25-2021 16:00-0400 Body temperature 97.4 [degF] DO Honey Danilochak Work Phone: [facility] 11-25-2021 16:00-0400 Diastolic blood pressure 61 mm[Hg] DO Honey Danilochak Work Phone: [facility] 11-25-2021 16:00-0400 Heart rate 98 /min DO Honey Mukulk Work Phone: [facility] 11-25-2021 16:00-0400 Respiratory rate 16 /min DO Honey Mukulk Work Phone: [facility] 11-25-2021 16:00-0400 SaO2% (BldA) [Mass fraction] 98 % DO Honey Danilochak Work Phone: [facility] 11-25-2021 16:00-0400 Systolic blood pressure 96 mm[Hg] DO Honey Mukulk Work Phone: [facility] 11-24-2021 12:10-0400 Body height 167.64 cm DO Honey Mukulk Work Phone: [facility] 11-22-2021 06:00-0400 Body weight 92.8 kg DO Honey Danilochak Work Phone: [facility] 11-13-2021 21:44-0400 Body temperature 98.1 [degF] DO Honey Danilochak Work Phone: [facility] 11-13-2021 21:44-0400 Diastolic blood pressure 71 mm[Hg] DO Honey Danilochak Work Phone: [facility] 11-13-2021 21:44-0400 Heart rate 92 /min DO Honey Danilochak Work Phone: [facility] 11-13-2021 21:44-0400 Respiratory rate 18 /min DO Honey Danilochak Work Phone: [facility] 11-13-2021 21:44-0400 SaO2% (BldA) [Mass fraction] 98 % DO Honey Danilochak Work Phone: [facility] 11-13-2021 21:44-0400 Systolic blood pressure 112 mm[Hg] DO Honey Vaschak Work Phone: [facility] 11-12-2021 16:00-0400 Body temperature 97.6 [degF] DO Honey Danilochak Work Phone: [facility] 11-12-2021 16:00-0400 Diastolic blood pressure 63 mm[Hg] DO Honey Danilochak Work Phone: [facility] 11-12-2021 16:00-0400 Heart rate 96 /min DO Honey Danilochak Work Phone: [facility] 11-12-2021 16:00-0400 Respiratory rate 16 /min DO Honey Mukulk Work Phone: [facility] 11-12-2021 16:00-0400 SaO2% (BldA) [Mass fraction] 98 % DO Honey Danilochak Work Phone: [facility] 11-12-2021 16:00-0400 Systolic blood pressure 98 mm[Hg] DO Honey Danilochak Work Phone: [facility] 11-12-2021 10:30-0400 Body height 167.64 cm DO Honey Mukulk Work Phone: [facility] 11-11-2021 15:00-0400 Body weight 92.98 kg DO Honey Vaschak Work Phone: [facility] 11-11-2021 08:00-0400 Body temperature 97.9 [degF] DO Honey Danilochak Work Phone: [facility] 11-11-2021 08:00-0400 Diastolic blood pressure 67 mm[Hg] DO Honey Vaschak Work Phone: [facility] 11-11-2021 08:00-0400 Heart rate 87 /min DO Honey Vaschak Work Phone: [facility] 11-11-2021 08:00-0400 SaO2% (BldA) [Mass fraction] 95 % DO Honey Vaschak Work Phone: [facility] 11-11-2021 08:00-0400 Systolic blood pressure 103 mm[Hg] DO Honey Vaschak Work Phone: [facility] 11-11-2021 05:58-0400 Respiratory rate 17 /min DO Honey Vaschak Work Phone: [facility] 11-11-2021 04:10-0400 Body weight 93.3 kg DO Honey Vaschak Work Phone: [facility] 11-05-2021 16:33-0400 Body height 167.64 cm DO Honey Vaschak Work Phone: [facility] 10-19-2021 23:25-0400 Diastolic blood pressure 78 mm[Hg] DO Honey Vaschak Work Phone: [facility] 10-19-2021 23:25-0400 Heart rate 83 /min DO Honey Vaschak Work Phone: [facility] 10-19-2021 23:25-0400 Respiratory rate 18 /min DO Honey Vaschak Work Phone: [facility] 10-19-2021 23:25-0400 SaO2% (BldA) [Mass fraction] 100 % DO Honey Vaschak Work Phone: [facility] 10-19-2021 23:25-0400 Systolic blood pressure 164 mm[Hg] DO Honey Vaschak Work Phone: [facility] 10-19-2021 19:51-0400 Body temperature 97.6 [degF] DO Honey Mukulk Work Phone: [facility] 10-19-2021 19:48-0400 Body height 167.64 cm DO Honey Gilmank Work Phone: [facility] 10-19-2021 19:48-0400 Body weight 98.6 kg DO Honey Mukulk Work Phone: [facility] 10-01-2021 11:58-0400 Body height 167.6 cm Gloria Perez ORCHID TRANSPLANTER.BIOMEDICAL ENGINEERING DIRECTOR Work Phone: [facility] 10-01-2021 11:58-0400 Body weight 101.06 kg Gloria Perez ORCHID TRANSPLANTER.BIOMEDICAL ENGINEERING DIRECTOR Work Phone: [facility] 10-01-2021 11:58-0400 SaO2% (BldA) [Mass fraction] 98 % Gloria Perez ORCHID TRANSPLANTER.BIOMEDICAL ENGINEERING DIRECTOR Work Phone: [facility] 09-28-2021 02:06-0400 Heart rate 86 /min DO Honey Rabago Work Phone: [facility] 09-28-2021 00:01-0400 Body height 167.64 cm DO Honey Rabago Work Phone: [facility] 09-28-2021 00:01-0400 Body mass index (BMI) [Ratio] 35.5 kg/m2 DO Honey Hima Work Phone: [facility] 09-28-2021 00:01-0400 Body weight 99.79 kg DO Honey Gilmank Work Phone: [facility] 09-27-2021 23:57-0400 Body temperature 99.6 [degF] DO Honey Mukulk Work Phone: [facility] 09-27-2021 23:57-0400 Diastolic blood pressure 59 mm[Hg] DO Honey Mukulk Work Phone: [facility] 09-27-2021 23:57-0400 Respiratory rate 16 /min DO Honey Rabago Work Phone: [facility] 09-27-2021 23:57-0400 SaO2% (BldA) [Mass fraction] 97 % DO Honey Rabago Work Phone: [facility] 09-27-2021 23:57-0400 Systolic blood pressure 125 mm[Hg] DO Honey Rabago Work Phone: [facility] 07-31-2020 16:20-0400 Body height 167.64 cm Honey Rabago Work Phone: [facility] 07-31-2020 16:20-0400 Body mass index (BMI) [Ratio] 41.6 kg/m2 Honey Rabago Work Phone: [facility] 07-31-2020 16:20-0400 Body weight 117.02 kg Honey Rabago Work Phone: [facility] 07-31-2020 16:19-0400 Body temperature 98.1 [degF] Honey Rabago Work Phone: [facility] 07-31-2020 16:19-0400 Diastolic blood pressure 70 mm[Hg] Honey Rabago Work Phone: [facility] 07-31-2020 16:19-0400 Heart rate 90 /min Hoeny Rabago Work Phone: [facility] 07-31-2020 16:19-0400 Respiratory rate 18 /min Honey Rabago Work Phone: [facility] 07-31-2020 16:19-0400 SaO2% (BldA) [Mass fraction] 98 % Honey Rabago Work Phone: [facility] 07-31-2020 16:19-0400 Systolic blood pressure 155 mm[Hg] Honey GilmanTextbroker Work Phone: [facility] Encounters Encounter Date Encounter Type Care Provider Facility Start: 04-27-2023 Clinisync Result Encounter Gen ciaran External Data Provider [facility] External Department Unsolicited Start: 04-27-2023 Clinisync Result Encounter Gen ciaran External Data Provider [facility] External Department Unsolicited Start: 03-28-2023 End: 03-29-2023 ambulatory MAC HAMILTON Not Available Start: 03-28-2023 End: 03-28-2023 ambulatory HONEY RABAGO Not Available Start: 02-11-2023 Telephone encounter Gloria blankenship APRN.BIOMEDICAL ENGINEERING DIRECTOR Work Phone: Neurology Comment on above: Medication Problem Start: 01-25-2023 End: 01-25-2023 ambulatory URBANO HUTTON Not Available Start: 01-20-2023 End: 01-20-2023 ambulatory HONEY RABAGO Facility:[facility] Start: 01-20-2023 End: 01-20-2023 Patient encounter procedure Gloria Perez APRN.BIOMEDICAL ENGINEERING DIRECTOR Work Phone: Neurology Comment on above: Parkinson's disease without dyskinesia, with fluctuating manifestations (Primary Dx); Depression with anxiety Start: 07-14-2022 End: 07-14-[address] HONEY RABAGO Facility:[facility] Start: 07-12-2022 End: 07-12-[address] HONEY RABAGO Facility:[facility] Start: 07-08-2022 End: 07-08-2022 ambulatory HONEY RABAGO Facility:[facility] Start: 07-08-2022 End: 07-08-2022 Patient encounter procedure Gloria Perez APRN.BIOMEDICAL ENGINEERING DIRECTOR Work Phone: Neurology Comment on above: Parkinson's disease (HCC) (Primary Dx); Depression with anxiety Start: 06-01-2022 End: 06-01-[address] HONEY RABAGO Facility:[facility] Start: 05-31-2022 ambulatory Gloria Perez APRN.BIOMEDICAL ENGINEERING DIRECTOR Work Phone: Neurology Comment on above: UPDATE: ALTON CRAWFORD : [birth year] Start: 05-20-2022 End: 05-20-2022 ambulatory Honey Rabago Facility:[facility] Start: 05-20-2022 End: 05-20-2022 ambulatory DO Honey Rabago Work Phone: [facility] Work Phone: Start: 05-20-2022 End: 05-20-2022 Discharged Recurring DO Honey Gilmanaura Work Phone: [facility] - [facility]/P Work Phone: Start: 04-13-2022 Refill Gloria Perez ORCHID TRANSPLANTER.BIOMEDICAL ENGINEERING DIRECTOR Work Phone: Neurology Comment on above: Refill Request Start: 02-15-2022 Telephone encounter Gloria blankenship APRN.BIOMEDICAL ENGINEERING DIRECTOR Work Phone: Neurology Comment on above: Patient Update Start: 02-02-2022 End: 02-03-[address] HONEY RABAGO Facility:[facility] Start: 01-08-2022 End: 01-08-2022 ambulatory Anu Alva Other [facility] Other Start: 01-08-2022 Telephone encounter Anu Alva [facility] Start: 12-30-2021 End: 12-30-2021 ambulatory Honey Rabago Facility:[facility] Start: 12-30-2021 End: 12-30-2021 Patient encounter procedure DO Honey Rabago Work Phone: [facility] Start: 12-29-2021 End: 12-30-[address] HONEY RABAGO Facility:[facility] Start: 12-21-2021 End: 12-21-[address] HONEY RABAGO Facility:[facility] Start: 12-15-2021 (Repeat [facility]) Anu Alva [facility] Start: 12-15-2021 End: 12-15-2021 ambulatory Anu Alva Other [facility] Other Start: 12-14-2021 End: 12-14-[address] HONEY RABAGO Facility:[facility] Start: 12-01-2021 (Repeat [facility]) Anu Alva [facility] Start: 12-01-2021 End: 12-01-2021 ambulatory Anu Alva Other [facility] Other Start: 11-30-2021 End: 11-30-[address] HONEY RABAGO Facility:[facility] Start: 11-11-2021 End: 11-25-2021 Evaluation and management of inpatient Alcides Moya Facility:[facility] Start: 11-11-2021 End: 11-25-2021 Evaluation and management of inpatient DO Honey Rabago Work Phone: [facility] Start: 11-05-2021 End: 11-05-2021 ambulatory Osawldo Almonte Other [facility] Other Start: 11-05-2021 Patient encounter procedure Oswaldo Almonte [facility] Start: 11-05-2021 Telephone encounter Gloria blankenship APRN.BIOMEDICAL ENGINEERING DIRECTOR Work Phone: Neurology Comment on above: Appointment; Patient Update (Called to schedule follow up. Patient in hospital.) Start: 11-04-2021 End: 11-11-2021 ambulatory Honey Rabago Facility:[facility] Start: 11-04-2021 End: 11-11-2021 Evaluation and management of inpatient DO Honey Rabago Work Phone: [facility] Start: 10-26-2021 ambulatory Gloria Perez APRN.BIOMEDICAL ENGINEERING DIRECTOR Work Phone: Neurology Comment on above: ALTON BARKER UPDATE MESSAGE #3 Start: 10-22-2021 Registered Recurring DO Honey Rabago Work Phone: [facility] Start: 10-22-2021 ([facility] R A/c) [facility] Re peat A/C Anu Alva [facility] Start: 10-22-2021 End: 10-23-2021 ambulatory Honey Rabago [facility] Other Start: 10-19-2021 End: 10-20-2021 Emergency department patient visit Holger Junaid Estrada Facility:[facility] Start: 10-19-2021 End: 10-20-2021 Emergency department patient visit DO Honey Rabago Work Phone: [facility]Emergency [facility] Start: 10-01-2021 End: 10-01-2021 Patient encounter procedure Gloria Perez APRN.BIOMEDICAL ENGINEERING DIRECTOR Work Phone: Neurology Comment on above: Recurrent episodes o f unresponsiveness (Primary Dx); Parkinson's disease (HCC); Depression with anxiety; Fatigue, unspecified type; Excessive daytime sleepiness Start: 09-29-2021 ([facility] R A/c) [facility] Re peat A/C Anu Fitt [facility] Start: 09-29-2021 End: 09-29-2021 ambulatory Anu Fitt Other [facility] Other Start: 09-28-2021 End: 09-28-2021 Emergency department patient visit Sumanth Mitch Lowe Facility:[facility] Start: 09-27-2021 End: 09-28-2021 Emergency department patient visit DO Honey Rabago Work Phone: [facility]Emer[facility] Start: 09-23-2021 End: 09-23-2021 ambulatory Anu Fitt Other [facility] Other Start: 09-23-2021 Telephone encounter Anu Fitt [facility] Start: 08-26-2021 ([facility] R A/c) [facility] Re peat A/C Anu Fitt [facility] Start: 08-26-2021 End: 08-26-2021 ambulatory Anu Fitt Other [facility] Other Start: 08-05-2021 ([facility] R A/c) [facility] Re peat A/C Anu Fitt [facility] Start: 08-05-2021 End: 08-05-2021 ambulatory Anu Fitt Other [facility] Other Start: 07-20-2021 ([facility] R A/c) [facility] Re peat A/C Anu Fitt [facility] Start: 07-20-2021 End: 07-20-2021 ambulatory Anu Fitt Other [facility] Other Start: 06-10-2021 ([facility] R A/c) [facility] Re peat A/C Anu Fitt [facility] Start: 06-10-2021 End: 06-10-2021 ambulatory Anu Fitt Other [facility] Other Start: 05-26-2021 ([facility] R A/c) [facility] Re peat A/C Anu Fitt [facility] Start: 05-26-2021 End: 05-26-2021 ambulatory Anu Fitt Other [facility] Other Start: 05-19-2021 End: 05-19-2021 ambulatory Anu Fitt Other [facility] Other Start: 05-19-2021 Telephone encounter Anu Fitt [facility] Start: 04-21-2021 End: 04-21-2021 ambulatory Anu Fitt Other [facility] Other Start: 04-21-2021 Telephone encounter Anu Fitt [facility] Start: 04-15-2021 End: 04-15-2021 ambulatory Anu Fitt Other [facility] Other Start: 04-15-2021 Telephone encounter Anu Fitt [facility] Start: 03-25-2021 ([facility] R A/c) [facility] Re peat A/C Anu Fitt [facility] Start: 03-25-2021 End: 03-25-2021 ambulatory Anu Fitt Other [facility] Other Start: 02-25-2021 ([facility] R A/c) [facility] Re peat A/C Anu Fitt [facility] Start: 02-25-2021 End: 02-25-2021 ambulatory Anu Fitt Other [facility] Other Start: 01-28-2021 ([facility] R A/c) [facility] Re peat A/C Anu Fitt [facility] Start: 01-28-2021 End: 01-28-2021 ambulatory Anu Fitt Other [facility] Other Start: 01-21-2021 End: 01-21-2021 ambulatory Anu Fitt Other [facility] Other Start: 01-21-2021 Telephone encounter Anu Juan Miguelt [facility] Start: 01-07-2021 End: 01-07-2021 ambulatory Anu Fitt Other [facility] Other Start: 01-07-2021 Telephone encounter Anu Juan Miguelt [facility] Start: 12-10-2020 ([facility] R A/c) [facility] Re peat A/C Anu Fitt [facility] Start: 07-31-2020 End: 07-31-2020 Emergency department patient visit Honey Rabago Work Phone: -Emergency Room Start: 06-18-2020 Registered Recurring Honey guerrero Work Phone: -[facility] Procedures Date Procedure Procedure Detail Performing Clinician Start: 04-27-2023 ALL HEMOGLOBIN Generic External Data Provider Start: 11-05-2021 MR lumbar spine wo con [...] Adult depression scr eening assessment Gloria Perez ORCHID TRANSPLANTER.BIOMEDICAL ENGINEERING DIRECTOR Work Phone: Start: 09-28-2021 Plain chest X-ray [...] Treatment Date Care Activity Detail Author Start: 01-23-2024 Glaucoma screening Diabetes: R etinopathy Screening [facility] Start: 12-04-2023 DIABETES SCREEN DIABETES SCREEN [facility] Start: 12-04-2023 Diabetes Screening Diabetes Screenin [facility] Start: 10-06-2023 End: 10-06-2023 Patient encounter procedure 10/06/2023 10:50 AM EDT Office Visit [facility] [address] [place] [address] Nicol Aponte MD [address] [place] [address] [facility] Start: 07-29-2023 Medicare Annual Wellness (AWV) Medicare Annual Wellness (AWV) [facility] Start: 07-27-2023 End: 07-27-2023 Patient encounter procedure 07/27/2023 2:00 PM EDT Office Visit [facility] [address] [place] [id number] Honey Rabago DO [address] [place] [address] [facility] Start: 06-27-2023 Hemoglobin A1c measurement Diabetes: Hemoglobin A1C [facility] Start: 05-04-2023 End: 05-04-2023 Patient encounter procedure 05/04/2023 1:00 PM EST [facility] [address] [place] [phone] Urbano Hutton DPM [address] [place] [address] [facility] Start: 11-12-2022 Covid-19 Vaccine ( season) Covid-19 Vaccine ( season) [facility] Start: 09-29-2022 Adult depression screening assessment DEPRESSION SCREENING [facility] Start: 03-14-2022 ADVANCE DIRECTIVE DISCUSSION ADVANCE DIRECTIVE DISCUSSION [facility] Start: 03-14-2022 DEPRESSION ASSESSMENT DEPRESSION ASS ESSMENT [facility] Start: 12-11-2021 [facility] Work Phone: Start: 12-10-2021 [facility] Work Phone: Start: 12-09-2021 [facility] Work Phone: Start: 12-08-2021 [facility] Work Phone: Start: 12-07-2021 [facility] Work Phone: Start: 12-06-2021 [facility] Work Phone: Start: 12-05-2021 [facility] Work Phone: Start: 12-04-2021 [facility] Work Phone: Start: 12-03-2021 [facility] Work Phone: Start: 12-02-2021 [facility] Work Phone: Start: 12-01-2021 [facility] Work Phone: Start: 11-30-2021 [facility] Work Phone: Start: 11-29-2021 [facility] Work Phone: Start: 11-28-2021 [facility] Work Phone: Start: 11-27-2021 [facility] Work Phone: Start: 11-26-2021 [facility] Work Phone: Start: 11-25-2021 [facility] Work Phone: Start: 11-24-2021 End: 11-24-2021 [facility] Start: 11-23-2021 [facility] Start: 11-22-2021 [facility] Work Phone: Start: 11-21-2021 [facility] Work Phone: Start: 11-20-2021 [facility] Work Phone: Start: 11-19-2021 [facility] Work Phone: Start: 11-18-2021 [facility] Work Phone: Start: 11-17-2021 [facility] Work Phone: Start: 11-16-2021 [facility] Work Phone: Start: 11-15-2021 [facility] Work Phone: Start: 11-14-2021 [facility] Work Phone: Start: 11-13-2021 [facility] Work Phone: Start: 11-12-2021 Influenza vaccination INFLUENZA (#1) [facility] Start: 11-11-2021 Administration of prophylactic treatment [facility] Start: 11-11-2021 Hospital admission [facility] Start: 11-11-2021 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 cyber security manager [facility] Start: 11-11-2021 [facility] Work Phone: Start: 11-11-2021 Evaluation and management of inpatient Back pain [facility] Start: 11-09-2021 [facility] Start: 11-05-2021 MR lumbar spine wo con MR lumbar spi ne wo [facility] Start: 11-05-2021 Administration of prophylactic treatment [facility] Start: 11-05-2021 Administration of prophylactic treatment [facility] Start: 11-05-2021 Consultation [facility] Start: 11-04-2021 Referral to psychiatrist [facility] Start: 11-04-2021 Hospital admission [facility] Start: 11-04-2021 End: 11-11-2021 Evaluation and management of inpatient Back pain [facility] Start: 11-04-2021 CT of head without contrast CT head/brain wo [facility] Start: 11-04-2021 Computed tomography of thoracic spine without contrast CT thoracic spine wo [facility] Start: 11-04-2021 CT cervical spine without contrast CT cervical spine wo [facility] Start: 11-04-2021 CT of lumbar spine without contrast CT lumbar spine wo [facility] Start: 10-22-2021 Registered Recurring Registered Recu rring [facility] Start: 07-28-2021 Urine screening for protein Diabetes: Urine Protein Screening [facility] Start: 05-20-2021 COVID-19 VACCINE (4 - Booster for Moderna series) COVID-19 VACCINE (4 - Booster for Moderna series) [facility] Start: 03-17-2021 COVID-19 VACCINE (4 - Booster for Moderna series) COVID-19 VACCINE (4 - Booster for Moderna series) [facility] Start: 03-14-2021 ADVANCE DIRECTIVE DISCUSSION ADVANCE DIRECTIVE DISCUSSION [facility] Start: 03-14-2021 DEPRESSION ASSESSMENT DEPRESSION ASS ESSMENT [facility] Start: 07-23-2009 Urine microalbumin profile DTaP,Tdap,Td Vaccine (1 - Tdap) [facility] Start: 2006 BONE DENSITY BONE DENSITY [facility] Start: 2006 Bone Density Screening Bone Density Screening [facility] Start: 2006 PNEUMOCOCCAL: 65+ (1 - PCV) PNEUMOCOCCAL: 65+ (1 - PCV) [facility] Start: 2001 RSV Vaccine (1 - 1-d ose 60+ series) RSV Vaccine (1 - 1-dose 60+ series) [facility] Start: 07-14-1991 SHINGRIX VACCINE (1 of 2) SHINGRIX VACCINE (1 of 2) [facility] Start: 1960 Urine microalbumin profile DTAP,TDAP,TD (1 - Tdap) [facility] End: 10-04-2022 EPIL EEG ROUTINE EPIL EEG ROUTINE NEUROLOGY Routine Recurrent episodes of unresponsiveness 1 Occurrences starting 10/04/2021 until 10/04/2022 [facility] Work Phone: Comment on above: 1 Occurrences starti 10/04/2021 until 10/04/2022 Patient Education [facility] Work Phone: [facility] Immunizations Immunization Date Immunization Notes Care Provider Fa sergio 12-15-2022 Influenza, Seasonal, Quadrivalent, Adjuvanted Generic Provider [facility] 01-25-2022 influenza, high dose seasonal, preservative-free Generic Provider [facility] 12-03-2020 influenza, high dose seasonal, preservative-free Generic Provider [facility] 12-24-2019 Seasonal trivalent influenza vaccine, adjuvanted, preservative free Generic Provider [facility] 02-05-2019 influenza, high dose seasonal, preservative-free Anu Alva Other [facility] Other 02-10-2018 influenza, high dose seasonal, preservative-free Generic Provider [facility] 05-03-2017 influenza, injectabl e, quadrivalent, preservative free Generic Provider [facility] 12-25-2015 influenza, high dose seasonal, preservative-free Generic Provider [facility] 12-17-2014 influenza, seasonal, injectable, preservative free Generic Provider [facility] 10-02-2014 pneumococcal conjuga te vaccine, 13 valent Generic Provider [facility] 11-28-2013 influenza, high dose seasonal, preservative-free Generic Provider [facility] 10-01-2013 pneumococcal polysaccharide vaccine, 23 valent Generic Provider [facility] 01-13-2012 seasonal influenza, intradermal, preservative free Generic Provider [facility] 01-09-2010 seasonal influenza, intradermal, preservative free Generic Provider [facility] 07-22-2009 tetanus and diphther ia toxoids, adsorbed, preservative free, for adult use (2 Lf of tetanus toxoid and 2 Lf of diphtheria toxoid) Generic Provider [facility] 12-16-2008 seasonal influenza, intradermal, preservative free Generic Provider [facility] Payers Date Payer Category Payer Medicare [id number] 2021 Medicare ANTHEM MEDICARE ADVANTAGE [facility] MEDICARE ADVANTAGE [id number] 2021-Present [address] [place] [address] [id number] 2021 Unknown ANTHEM BLUE CROS S AND BLUE SHIELD [facility] [id number] 2021-Present [phone] [address] [place] [address] HMO [id number] 2021 Unknown ANTHEM BLUE CROS S AND BLUE SHIELD [employer]M MEDIBL[employer] HMO [id number] 2021-Present [phone] [address] [place] [address] HMO [id number] 2016 Self-pay [id number] 1959 Medicare [id number] 1959 Unknown [id number] 1941 Unknown [id number] [id number]. 593 1941 Unknown [id number] 2.16840.1.031824.3.579.2. 59 1941 Unknown [id number] 2.16840.1.563429.3.579.2. 593 1941 Unknown [id number] 2.16840.1.043161.3.579.2. 59 1941 Unknown [id number] 2.16.840.1.569013.3.579.2. 593 1941 Unknown [id number] 2.16.840.1.353883.3.579.2. 593 1941 Unknown [id number] 2.16.840.1.306583.3.579.2. 593 1941 Unknown [id number] 2.16.840.1.830681.3.579.2. 593 1941 Unknown [id number] 2.16.840.1.994312.3.579.2. 1259 1941 Unknown [id number] 2.16.840.1.853761.3.579.2. 1259 1941 Unknown [id number] 2.16.840.1.437054.3.579.2. 1259 Private Health Insurance [id number] Unknown [id number] 2.16.840.1.970343.3.579.2. 531 Unknown [id number] 2.16.840.1.386542.3.579.2. 531 Unknown [id number] 2.16.840.1.605168.3.579.2. 531 Unknown [id number] 2.16.840.1.502104.3.579.2. 531 Unknown [id number] 2.16.840.1.072020.3.579.2. 531 Unknown [id number] 2.16.840.1.421574.3.579.2. 531 Unknown [id number] [id number]. 531 Social History Date Type Detail Facility Start: 07-31-2020 End: 02-12-2022 Tobacco smoking status DEIS Ex-smoker (finding) [facility] Start: 1940 Sex Assigned At Female [facility] Start: 01-20-2023 End: 03-28-2023 Sex Assigned At [facility] Start: 03-02-2018 End: 09-23-2022 Tobacco use and exposure Smokeless tobacco non-user [facility] Start: 09-21-2021 End: 02-12-2022 Exposure to SARS-CoV-2 (event) Not sure [facility] History of tobacco use Current smoker [facility] Start: 11-12-2021 End: 09-23-2022 Tobacco smoking status DEIS Never smoked tobacco (finding) [facility] Start: 01-20-2023 End: 03-28-2023 History of Social function [facility] Adult Depression Screening Assessment 4 [facility] Start: 11-26-2019 Gender identity Identifies as female gender (finding) [facility] Start: 11-26-2019 Sexual orientation Heterosexual (finding) [facility] Start: 03-28-2023 Alcohol intake Current drinker of alcohol (finding) [facility] How often to you hav e a drink containing alcohol? Never [facility] Start: 12-12-2022 Alcohol Comment caffeine: coffee 1-2 cups a day [facility] Start: 1940 Sex Assigned At Not on file [facility] Medical Equipment Procedure Code Equipment Code Equipment Origin al Text Equipment Identifier Dates USE DIRECTED BEFORE MEALS AND BEDTIME Start: 08-28-2018 End: 09-29-2021 Comment on above: USE DIRECTED BEFO RE MEALS AND BEDTIME Goals Date Patient Goal Desired Activity /State Functional Status Date Assessment Result Facility 11-25-2021 Functional status Patient is Pro gressing Toward Baseline [facility] Work Phone: 11-11-2021 Functional status Patient is Pro [facility] Work Phone: 11-04-2021 Functional status Patient at [facility] Work Phone: Mental Status Date Assessment Result Facility 11-25-2021 Cognitive function Cognitive Sta tus Patient at [facility] Work Phone: 11-11-2021 Cognitive function Cognitive Sta tus Patient Not at [facility] Work Phone: 11-04-2021 Cognitive function Cognitive Sta tus Patient at [facility] Work Phone: Clinical Notes 12-10-2020 to 02-11-2023 Addendum Note - Anu Hillman RN - 02/11/2023 2:59 PM ESTTelephone Encounter - Anu Hillman RN - 02/11/2023 2:57 PM ESTTelephone Encounter - Mary Anne Beatty - 02/11/2023 1:52 PM EST Note Date & Type Note Facility 02-11-2023 Note HNO ID: [id number] Author: Nupur Main PA-C Service: ? Author Type: [employer]ician [employer] Cook Type: Progress Notes Filed: 02/11/2023 4:48 PM Note Text: Reviewed chart - OK to refill; e-scripted to pharmacy as requested... [facility] 02-11-2023 Miscellaneous Notes Addended by: ANU HILLMAN on: 02/11/2023 02:59 PM Modules accepted: Orders Order pended to preferred pharmacy Last OV 01/20/23 Next OV 06/23/23 [facility]- [id number] [place] [address] - [address] [phone] [id number] carbidopa-levodopa (SINEMET 25-100) 25-100 mg per tablet Patient son called in today in regards to medication and wanting to switch pharmacy, they were told the best way to do this would be to request a new prescription. They would like it sent to [facility] Thank you! documented in this encounter [facility] 01-20-2023 Note HNO ID: [id number] Author: Gloria Perez APRN.CNP Service: ? Author Type: Nurse Practitioner Type: Progress Notes Filed: 01/24/2023 12:36 PM Note Text: [facility] - FOLLOW UP EVALUATION Honey Rabago DO [address] [facility] [address] Dear Honey Rabago DO: I had the [...] lot online or on TV, $15/month on [employer] tickets (in past also) Palliative Concerns: Caregiver [...] Use vaginally one (more content not included)... [facility] 01-20-2023 Instructions Gloria Perez APRN.ELDON - 01/20/2023 3:46 PM EST It was a pleasure to see you today. We addressed the following diagnoses: Parkinson's disease without dyskinesia, with fluctuating manifestations (primary encounter diagnosis) Depression with anxiety My recommendations are as follows: 01/20/2023 Visit: Parkinson's disease: Continue current medication schedule but discuss with the archaeologist if you can take the Sinemet on [...] or you can send a message through [employer]. You can also now schedule and select appointments through [employer]. Gloria Perez APRN.ELDON documented in this encounter [facility] 01-20-2023 History of Presen t illness Narrative [facility] - FOLLOW UP EVALUATION Honey Rabago DO [address] [facility] [address] Dear Honey Rabago DO: I had the [...] lot online or on TV, $15/month on [employer] tickets (in past also) Palliative Concerns: Caregiver [...] 01/18/2023: Pt takes 2 tabs daily per [employer] med list MEDICATION, NON-DATABASE 750 mg two [...] she is going to discuss with the archaeologist, see if she can take her Parkinson's [...] current medication schedule but discuss with the archaeologist if you can take the Sinemet on [...] Mirtazapine 7.5mg 1 Level of service : 87111 (40-54 min). Time spent 47 min on the day of service, which included preparing to see the patient, [id number]-tvkw patient care, completing clinical documentation, obtaining and/or reviewing separately obtained history, performing a medically appropriate examination, counseling and educating the patient/family/caregiver, and ordering medications, tests, or procedures. Gloria Perez APRN.ELDON documented in this encounter [facility] 07-08-2022 Note HNO ID: [id number] Author: Gloria Chris, ORCHID TRANSPLANTER.BIOMEDICAL ENGINEERING DIRECTOR Service: ? Author Type: Nurse Practitioner Type: Progress Notes Filed: 07/11/2022 5:23 PM Note Text: [facility] - FOLLOW UP EVALUATION Honey Rabago DO, DO [address] [place] [address] Dear Honey Rabago DO, DO: I had [...] She likes the staff. The director and funeral home director have to chip into cook since the tank tester cook and this has been good from [...] Rash Rosuvastatin Calcium (more content not included)... [facility] 07-08-2022 Instructions Gloria Perez APRN.CNP - 07/08/2022 3:56 PM EDT It was [...] or you can send a message through [employer]. You can also now schedule and select appointments through [facility]. Gloria Perez APRN.ELDON documented in this encounter [facility] 07-08-2022 History of Presen t illness Narrative [facility] - FOLLOW UP EVALUATION Honey Rabago DO, DO [address] [facility] [address] Dear Honey Rabago DO, DO: I had [...] She likes the staff. The director and funeral home director have to chip into cook since the [employer] cook and this has been good from [...] lot online or on TV, $15/month on [employer] tickets (in past) Palliative Concerns: Caregiver burden: [...] or around: 01/07/23 Level of service : 71290 (40-54 min). Time spent 47 min on the day of service, which included preparing to see the patient, ghye-kv-crle patient care, completing clinical documentation, obtaining and/or reviewing separately obtained history, performing a medically appropriate examination, counseling and educating the patient/family/caregiver, and ordering medications, tests, or procedures. Gloria Perez APRN.ELDON documented in this encounter [facility] 04-13-2022 Miscellaneous Notes Order pended Last [...] patient. Belen Tim documented in this encounter [facility] 02-15-2022 Miscellaneous Notes I tried callingGina, the social insurance adviser in her primary care provider's office. I left a message requesting a call back. Gloria Perez APRN-ELDON documented in this encounter [facility] 12-15-2021 Evaluation note Encounter Date Diagnosis [...] Please call patient's son Jose David at [phone] with results. Spoke to Jose David and discussed above. Spoke with KORTNEY Albert ([phone] ) and given above instructions. Patient may get home testing for INRs set-up, will inform clinic if home testing begins. Home Health Order: Draw PT/INR on 01-04-22 Seen by Justin Nicolas PharmD [facility] Other 09-20-2022 Evaluation note* Encounter Date Diagnosis [...] discharged on 11/25 from inpatient rehab at [facility] with above plan and therapeutic INRs. Follow up in 2 weeks. Please call patient's son Jose David at [phone] with results. Spoke to Jose David and discussed above. Spoke with KORTNEY Albert ([phone]) and given above instructions. Patient may get home testing for INRs set-up, will inform clinic if home testing begins. Home Health Order: Draw PT/INR on 12-14-21 Seen by Justin Nicolas PharmD [facility] Other 09-14-2022 Discharge summary Author Alcides Moya [facility] November 25, 2021 12:57pm Note Date/Time November 25, 2021 8:50am [facility] [address] [place] [address] Discharge Summary Signed Patient: Alton Barker MR#: [id number] : 1940 Acct:[id number] Age/Sex: 81 / F Adm Date: 2 Loc: Room: 1Y1896-[address]: Alcides Moya MD Copies to: [...] Plan Discharge Plan Patient Disposition: Home Health [facility] Activity: Ambulate as Tolerated Diet: Regular Additional [...] PT/INR (dx:Z79.01) on Tuesday11/30/21, with results to [facility], who will continue to manage your Coumadin dosing, as they were prior to your hospitalization. -Coumadin dosing: Take 2mg every day EXCEPT Tuesday and . Take 1mg on Tuesday and . Your Home Health agency is [facility] ( ). They will usually [...] <Electronically signed by Alcides Moya MD> 11/25/[address] [place] [address] Work Phone: 1(448) 708-741909-12-2022 Progress note Author Alcides Moya [facility] November 23, 2021 3:01pm Note Date/Time November 23, 2021 1:36pm [facility] [address] [place] [address] Physiatry(Rehab) Progress Note Signed Patient: Alton Barker MR#: [id number] : 1940 Acct:[id number] Age/Sex: 81 / F Adm Date: 2 Loc: Room: 7W9192-4 Type: ADM IN Attending Dr: Alcides Moya MD Copies to: ~ <Elham Mendoza APRN - Last Filed: 11/23/21 14:05> Date of Service: 11/23/2021 Subjective <Elham Mendoza APRN - Last Filed: 11/23/21 14:05> Subjective Narrative: Ms. Barker is a 81 year old female With history of Parkinson's disease, followed at the [facility], admitted to the rehabilitation unit with [...] it finally took effect, it was already past due accounts clerk. I reminded that she can take her [...] mg 11/11/21 14:29 Bisacodyl 10 Mg Supp.Rect ID 11/11/22 14:28 DAILY PRN Constipation Carbidopa/Levodopa 1.5 [...] 14:29 Docusate Enema 283 Mg/5 Ml Enema ID 11/11/22 14:28 DAILY PRN Constipation Lactulose 30 gm 11/11/21 14:29 Lactulose 20 Gm/30 Ml Udc PO 11/11/22 14:28 DAILY PRN Constipation Levothyroxine Sodium 75 mcg 11/12/21 06:30 11/23/21 06:45 Levothyroxine 75 Mcg Tablet PO 11/12/22 06:29 Not Given DAILY@0630 [facility] Lidocaine 1 patch 11/12/21 09:00 11/23/21 09:10 Lidocaine 4% Adh..Patch TOPICAL 11/12/22 08:59 1 patch QAM [facility] Administration Metformin HCl 1,000 mg 11/11/21 17:00 [...] Tablet PO 11/11/22 20:59 2 tab BID KYALIN Administration Sennosides 2 tab 11/12/21 12:00 Sennosides [...] Allied health note review, nursing note review, individual pension consultant note review, discussion with nursing and case management, and more than 50% of my time was spent on counseling and coordination of care, time spent 18 minutes Patient was personally seen by me, Dr. Moya, on the day of encounter, reviewed the history and the relevant portions of the chart, including current orders, allied health and individual pension consultant notes, labs/imaging and performed day elements [...] signed by Alcides Moya MD> 11/23/21 1501 [facility] Work Phone: 1(347) 196-943209-12-2022 Progress note Author Alcides Moya [facility] November 23, 2021 2:39pm Note Date/Time November 20, 2021 1:19pm [facility] [address] [place] [address] Physiatry(Rehab) Progress Note Signed Patient: Alton Barker MR#: [id number] : 1940 Acct:[id number] Age/Sex: 81 / F Adm Date: 2 Loc: 5T Room: 7D0741-4 Type: ADM IN Attending Dr: Alcides Moya MD Copies to: ~ <Elham Mendoza APRN - Last Filed: 11/20/21 13:21> Date of Service: 11/20/2021 Subjective <Elham Mendoza APRN - Last Filed: 11/20/21 13:21> Subjective Narrative: Ms. Barker is a 81 year old female With history of Parkinson's disease, followed at the [facility], admitted to the rehabilitation unit with [...] mg 11/11/21 14:29 Bisacodyl 10 Mg Supp.Rect ID 11/11/22 14:28 DAILY PRN Constipation Carbidopa/Levodopa 1.5 [...] 14:29 Docusate Enema 283 Mg/5 Ml Enema ID 11/11/22 14:28 DAILY PRN Constipation Lactulose 30 [...] 11/12/21 07:30 11/20/21 06:37 Omeprazole 20 Mg Capsule.Dr PO 11/12/22 07:29 20 mg DAILY.AC.BKFAST KAYLIN [...] PO 11/20/21 17:01 ONCE ONE Assessment/Plan <Elham Mendoza APRN - Last Filed: 11/20/21 13:21> Assessment/Plan (1) [...] Allied health note review, nursing note review, individual pension consultant note review, discussion with nursing and case management, and more than 50% of my time was spent on counseling and coordination of care, time spent 16 minutes Patient was personally seen by me, Dr. Moya, on the day of encounter, reviewed the history and the relevant portions of the chart, including current orders, allied health and individual pension consultant notes, labs/imaging and performed day elements of exam and I formulated the plan of care and facilitated the medical decision making and confirmed the nurse practitioner note, as above Documented By: Elham Mendoza APRN 11/20/21 1 310 Signed By: <Electronically signed by HEIDI Mendoza> 11/20/21 1321 <Electronically signed by Alcides Moya MD> 11/23/21 1439 [facility] Work Phone: 1(794) 392-213209-08-2022 Progress note Author Rosa Maria Mernaindra [facility] November 19, 2021 5:37pm Note Date/Time November 19, 2021 4:57pm [facility] [address] [place] [address] Hospitalist Progress Note Signed Patient: Alton Barker MR#: [id number] : 1940 Acct:[id number] Age/Sex: 81 / F Adm Date: 2 Loc: Room: [address] [place] [address] Type: ADM IN Attending Dr: Alcides Moya [...] mg 11/11/21 14:29 Bisacodyl 10 Mg Supp.Rect ID 11/11/22 14:28 DAILY PRN Constipation Carbidopa/Levodopa 1.5 [...] 14:29 Docusate Enema 283 Mg/5 Ml Enema ID 11/11/22 14:28 DAILY PRN Constipation Lactulose 30 [...] by Rosa Maria Odell MD> 11/19/21 1737 [facility] Work Phone: 1(372) 348-765109-07-2022 Progress note Author Alcides Moya [facility] November 18, 2021 12:40pm Note Date/Time November 17, 2021 10:56am [facility] [address] [place] [address] Physiatry(Rehab) Progress Note Signed Patient: Alton Barker MR#: [id number] : 1940 Acct:[id number] Age/Sex: 81 / F Adm Date: 2 Loc: Room: 7F7642-5 Type: ADM IN Attending Dr: Alcides Moya [...] mg 11/11/21 14:29 Bisacodyl 10 Mg Supp.Rect ID 11/11/22 14:28 DAILY PRN Constipation Carbidopa/Levodopa 1.5 [...] 14:29 Docusate Enema 283 Mg/5 Ml Enema ID 11/11/22 14:28 DAILY PRN Constipation Lactulose 30 [...] Chloride 0.9 % 10 Ml Syringe IV-PUSH 08/31/23 21:59 10 ml QSHIFT KAYLIN Administration Venlafaxine [...] Allied health note review, nursing note review, individual pension consultant note review, discussion with nursing and case management, and more than 50% of my time was spent on counseling and coordination of care, time spent 23 minutes Patient was personally seen by me, Dr. Moya, on the day of encounter, reviewed the history and the relevant portions of the chart, including current orders, allied health and individual pension consultant notes, labs/imaging and performed day elements [...] signed by Alcides Moya MD> 11/18/21 1240 [facility] Work Phone: 1(495) 947-652609-03-2022 Progress note Author Alcides Moya [facility] November 14, 2021 8:45am Note Date/Time November 13, 2021 3:25pm [facility] [address] [place] [address] Physiatry(Rehab) Progress Note Signed Patient: Alton Barker MR#: [id number] : 1940 Acct:[id number] Age/Sex: 81 / F Adm Date: 2 Loc: Room: 2K9220-8 Type: ADM IN Attending Dr: Alcides Moya MD Copies to: ~ Date of Service: 11/13/2021 Subjective Subjective Narrative: Ms. Barker is a 81 year old female With history of Parkinson's disease, followed at the [facility], admitted to the rehabilitation unit with [...] mg 11/11/21 14:29 Bisacodyl 10 Mg Supp.Rect ID 11/11/22 14:28 DAILY PRN Constipation Carbidopa/Levodopa 1.5 [...] 14:29 Docusate Enema 283 Mg/5 Ml Enema ID 11/11/22 14:28 DAILY PRN Constipation Lactulose 30 [...] Acute (10) Chronic anticoagulation: Code(s): Z79.01 - rn long term care (current) use of anticoagulants Status: Acute (11) Urinary tract infection: Code(s): N39.0 - Urinary tract infection, site not specified Status: Acute (12) Back pain: Code(s): M54.9 - Dorsalgia, unspecified Status: Acute Plan 81-year-old female with history of Parkinson's disease, follows at the [facility], admitted to the rehabilitation unit with functional [...] and self-care. Discharge planning:Insurance denial overturned via [id number]. 2 weeks approved. Plan for discharge home November 25 Plan: I completed a substantive portion of this encounter, the medical decision makingportion of this note in its entirety, including Allied health note review, nursing note review, individual pension consultant note review, discussion with nursing and case management, and more than 50% of my time was spent on counseling and coordination of care, time spent 26minutes Patient was personally seen by me, Dr. Moya, on the day of encounter, reviewed the history and the relevant portions of the chart, including current orders, allied health and individual pension consultant notes, labs/imaging and performed day elements of exam and I formulated the plan of care and facilitated the medical decision making and confirmed the nurse practitioner note, as above Documented By: Alcides Moya MD 11/13/21 1525 Signed By: <Electronically signed by Alcides Moya MD> 11/14/21 0845 [facility] Work Phone: 1(608) 987-313709-01-2022 Consult note Author Justice De Oliveira [facility] November 12, 2021 5:09pm Note Date/Time November 12, 2021 3:21pm [facility] [address] [place] [address] Hospitalist Consult Note Signed Patient: Alton Barker MR#: [id number] : 1940 Acct:[id number] Age/Sex: 81 / F Adm Date: 2 Loc: Room: 8L6157-5 Type: ADM IN Attending Dr: Alcides Moya MD Copies to: MD Justice Pate DO Lynn A Stackhouse, ANP-CHEN Rabago DO~ HPI DATE OF CONSULTATION: 11/12/21 [...] incontinence. Patient with underlying Parkinson's follows with [facility] neurology and movement disorder clinicians there. [...] negative unless noted below or in HPI [facility] Attestation Statement: The following information was validated with the patient. Vaccinated for COVID-19?: Yes Medical History (Updated 11/12/21 @ 15:42 by FIGUEROA Sultana-CHEN) Anxiety B12 deficiency Chronic anticoagulation Compression fracture [...] mg-vit E 90 mg-zinc 40 mg-copper 1 ic-zuopju-nsiwag capsule (PreserVision AREDS-2) 1 tab PO BID [...] mg 11/11/21 14:29 Bisacodyl 10 Mg Supp.Rect ID 11/11/22 14:28 DAILY PRN Constipation Carbidopa/Levodopa 1.5 [...] 14:29 Docusate Enema 283 Mg/5 Ml Enema ID 11/11/22 14:28 DAILY PRN Constipation Lactulose 30 [...] % (Auto) 45.9, Lymph % (Auto) 39.7, Brooke % (Auto) 10.1, Eos % (Auto) 3.8, Baso % (Auto) 0.5, Neut # (Auto) 2.3, Lymph # (Auto) 2.0, Brooke # (Auto) 0.5, Eos # (Auto) 0.2, [...] signed by Justice De Oliveira DO> 11/12/21 1706 [facility] Work Phone: 1(331) 288-868608-31-2022 History and physical note Author Alcides Moya [facility] November 11, 2021 6:55pm Note Date/Time November 11, 2021 1: 26pm [facility] [address] [place] [address] Physiatry (Rehab) H&P Signed Patient: Alton Barker MR#: [id number] : 1940 Acct:[id number] Age/Sex: 81 / F Adm Date: 2 Loc: Room: [address] [place] [address] Type: ADM IN Attending Dr: Alcides Moya MD Copies to: MD Honey Pate,DO~ Date of Service: 11/11/2021 HPI The patient was seen and examined on: 11/11/21 Etiologic Diagnosis/Impairment Group: 08.9 History of Present Illness: Ms. Barker is a 81 year old female With history of Parkinson's disease, followed at the [facility], admitted to the rehabilitation unit with [...] Lives at home with her son and illjzsqz-mt-yia. Chronic conditions are otherwise stable with current [...] mg-vit E 90 mg-zinc 40 mg-copper 1 ld-vbitoq-pxxzto capsule (PreserVision AREDS-2) 1 tab PO BID [...] 14 days Expected Discharge Destination: Home Rehabilitation [facility]: 08.9 Primary Diagnosis: L1 compression fracture h/o [...] 24 hour daily monitoring and intervention from Superintendent Meters as well as other consulting physicians including internal medicine as well as 24 hour daily rivet flunky nursing - for medical safe / optimal [...] Acute (10) Chronic anticoagulation: Code(s): Z79.01 - rn long term care (current) use of anticoagulants Status: Acute (11) Urinary tract infection: Code(s): N39.0 - Urinary tract infection, site not specified Status: Acute (12) Back pain: Code(s): M54.9 - Dorsalgia, unspecified Status: Acute Plan 81-year-old female with history of Parkinson's disease, follows at the [facility], admitted to the rehabilitation unit with [...] and self-care. Discharge planning:Insurance denial overturned via [id number]. Plan for discharge home in 1 to 2 weeks. Plan: I completed a substantive portion of this encounter, the medical decision making portion of this note in its entirety, including Allied health note review, nursing note review, individual pension consultant note review, discussion with nursing and case management, and more than 50% of my time was spent on counseling and coordination of care, time spent 65 minutes Patient was personally seen by me, Dr. Moya, on the day of encounter, reviewed the history and the relevant portions of the chart, including current orders, allied health and individual pension consultant notes, labs/imaging and performed day elements of exam and I formulated the plan of care and facilitated the medical decision making and confirmed the nurse practitioner note, as above Documented By: Alcides Moya MD 11/11/211853 Signed By: <Electronically signed by Alcides Moya MD> 11/11/213 [facility] Work Phone: 1(920) 682-431208-25-2022 Miscellaneous Notes* Telephone Encounter - Gloria Perez [...] to in-health rehab. Currently she is at [facility] in [place] - Room 3009 Bed. 2. * Telephone Encounter - Lyly Pedersen - 11/05/2021 1:04 PM EDT ----- Message from Gloria Perez APRN.ELDON sent at 11/03/2021 8:01 AM EDT ----- [...] know. Thank you, Gloria [facility] History and physical note Author Enrrique Mota [facility] November 04, 2021 8:55pm Note Date/Time November 04, 2021 6: 26pm [facility] [address] [place] [address] Hospitalist H&P Signed Patient: Alton Barker MR#: [id number] : 1940 Acct:[id number] Age/Sex: 81 / F Adm Date: 2 Loc: 3T Room: [address] [place] [address] Type: ADM IN Attending Dr: Enrrique Mota MD Copies to: Enrrique Mota MD Honey Quiroga Danilokoki,~ HPI DATE OF EXAMINATION: 11/04/21 HISTORY OF [...] History (Updated 11/04/21 @ 18:25 by Marvin Peetr DO) Anxiety Diabetes DVT (deep venous thrombosis) [...] mg-vit E 90 mg-zinc 40 mg-copper 1 rw-vdnwft-jjjlav capsule (PreserVision AREDS-2) 1 tab PO BID [...] % (Auto) 20.3 % (.) 11/04/21 16:40 Brooke % (Auto) 9.7 % (.) 11/04/21 16:40 Eos % (Auto) 1.7 % (.) 11/04/21 16:40 Baso % (Auto) 0.6 % (.) 11/04/21 16:40 Neut # (Auto) 5.3 x10E3/uL (1.8-7.7) 11/04/21 16:40 Lymph # (Auto) 1.6 x10E3/uL (1.00-4.8) 11/04/21 16:40 Brooke # (Auto) 0.8 x10E3/uL (0.0-0.8) 11/04/21 16:40 [...] <Electronically signed by Enrrique Mota MD> 11/04/212054 [facility] Work Phone: 1(703) 336-657708-11-2022 Evaluation note* Encounter Date Diagnosis Assessment Notes [...] 2 weeks. Seen by Justin Nicolas PharmD [facility] Other 07-21-2022 Instructions* Patient Instructions* Gloria Perez APRN.BIOMEDICAL ENGINEERING DIRECTOR - 10/01/2021 12:59 PM EDT It was [...] or you can send a message through [employer]. You can also now schedule and select appointments through [employer]. Gloria Perez APRN.ELDON [facility] History of Present illness Narrative* Gloria Perez APRN.CNP - 10/01/2021 12:13 PM EDT [facility] - FOLLOW UP EVALUATION Honey Rabago, DO, DO [address] [facility] [address] I had the pleasure of seeing Ms. [...] loss is noticeable but LTM is good. [place] Cognitive Assessment (MoCA): 29 (02/03/2021 10:50 AM) [...] is now living with her son and zmmuaxrs-ir-ssu. She has not been taking her medication [...] 1.5 1.5 Effexor Level of service : 38212 (40-54 min). Time spent 49 (12:14pm-1:03pm) min on the day of service, which included preparing to see the patient, qvlt-od-egbn patient care, completing clinical documentation, obtaining and/or reviewing separately obtained history, performing a medically appropriate examination, counseling and educating the patient/family/caregiver and ordering medications, tests, or procedures. Gloria Perez APRN.ELDON [facility]* Encounter Date Diagnosis Assessment [...] 3 weeks. Seen by Juliana Ozuna RN Britton Yekra Other 06-28-2022 NoteHISTORY: Bone density screening. COMPARISON: [...] and signed by Delgado Moya on 09/08/2021 [facility] Encounter Date Diagnosis Assessment Notes [...] significant other. Seen by Juliana Ozuna RN [employer] Other 05-25-2022 Evaluation note* Encounter Date Diagnosis [...] since of significant other. Seen by Yeni hSaw LPN July, Other - INSTRUCTIONS: Please take as instructed above. Notify [place] for [facility] Care, Anticoagulation Clinic [phone] option 5 for the following: -Call immediately [...] person tells you to adjust your warfarin. [employer] Other 05-09-2022 Evaluation note* Encounter Date Diagnosis [...] significant other. Seen by Justin Nicolas PharmD Britton Yekra Other 03-30-2022 Evaluation note* Encounter Date Diagnosis [...] Seen by Anu Alva RPh/Anuradha Case LPN Britton Yekra Other 03-15-2022 Evaluation note* Encounter Date Diagnosis [...] Seen by Anu Alva [facility] [employer] Other 01-12-2022 Evaluation note* Encounter Date Diagnosis [...] 3 weeks. Seen by Justin Nicolas PharmD [facility] Other 12-15-2021 Evaluation note* Encounter Date Diagnosis Assessment Notes Treatment Notes Treatment Clinical Notes Feb, Medication monitoring encounter (ICD-10 - Z51.81) Referring Provider: Honey aRbago Diagnosis: DVT INR Goal: 2-3 INR: 1.9 Tablet Size: 2mg Tuesday: 2mg Tuesday: 3mg Tuesday: 3mg Tuesday: 3mg : 2mg Tuesday: 3mg Tuesday: 3mg Total Weekly Dose: 19mg Continue current plan. Follow-up in 4 weeks. Seen by Juliana Ozuna RN [facility] Other 11-17-2021 Evaluation note* Encounter Date Diagnosis [...] 4 weeks. Seen by Juliana Ozuna RN [facility] Other 09-29-2021 Evaluation note* Encounter Date Diagnosis [...] 4 weeks. Seen by Justin Nicolas PharmD [facility] [employer] Other Consult note Author Jairo Benson [facility] November 05, 2021 3:10pm Note Date/Time November 05, 2021 3: 10pm [facility] [address] [place] [address] Psychiatry Consult Note Signed Patient: Alton Barker MR#: [id number] : 1940 Acct:[id number] Age/Sex: 81 / F Adm Date: 2 Loc: Room: [address] [place] [address] Type : ADM INOo Attending Dr: Enrrique [...] mg-vit E 90 mg-zinc 40 mg-copper 1 ox-pildnc-xljewh capsule (PreserVision AREDS-2) 1 tab PO BID [...] Cloudy A Urine pH 5.5 Ur Specific [place] 1.029 Urine Protein 30 H Urine Glucose [...] signed by Jairo Benson MD> 11/05/21 1510 [facility] Work Phone: Consult note Author Oswaldo Almonte [facility] November 06, 2021 11:33am Note Date/Time November 06, 2021 11 :33am [facility] [address] [place] [address] Neurosurgery Consult Note Signed Patient: Alton Barker MR#: [id number] : 1940 Acct:[id number] Age/Sex: 81 / F Adm Date: 2 Loc: Room: [address] [place] [address] Type: ADM INOo Attending Dr: Enrrique Mota [...] mg-vit E 90 mg-zinc 40 mg-copper 1 ty-xchflj-vqsybq capsule (PreserVision AREDS-2) 1 tab PO BID [...] Cloudy A, Urine pH 5.5, Ur Specific [place] 1.029, Urine Protein 30 H, Urine Glucose [...] % (Auto) 67.7, Lymph % (Auto) 20.3, Brooke % (Auto) 9.7, Eos % (Auto) 1.7, Baso % (Auto) 0.6, Neut # (Auto) 5.3, Lymph # (Auto) 1.6, Brooke # (Auto) 0.8, Eos # (Auto) 0.1, [...] signed by MD Oswaldo Almonte> 11/06/21 1133 [facility] Work Phone: Discharge summary Author Gaye Claire [facility] November 11, 2021 5:21pm Note Date/Time November 10, 2021 11 :33am [facility] [address] [place] [address] Discharge Summary Signed Patient: Alton Barker MR#: [id number] : 1940 Acct:[id number] Age/Sex: 81 / F Adm Date: 2 Loc: Room: [address] [place] [address]: Gaye Claire MD Copies to: Tonya Suh, [facility]- MD Honey Collado,DO~ Providers Date of Admission: [...] movement disorderspecialist Gloria Lal nurse practitioner at [facility] routinely. She was continued on her [...] Discharge Plan Discharge Plan Patient Disposition: Rehab [facility] Activity: No Activity Restriction Diet: Regular Additional [...] Fri, Sat, Sun 0.5 tab daily on metoprolol tartrate 50 MG tablet 75 mg [...] 2 1300 Signed By: <Electronically signed by FIGUEROA-CHEN Suh> 11/11/21 1356 <Electronically signed by Gaye Claire MD> 11/11/21 1721 [facility] Work Phone: Evaluation noteNo assessment information available [facility] note[facility] InformationNort Yekra Other Evaluation note* Diagnosis Recurrent episodes of unresponsiveness- Primary Parkinson's disease (HCC) Paralysis agitans Depression with anxiety Dysthymic disorder Fatigue, unspecified type Excessive daytime sleepiness [facility] Diagnosis Onset Date Resolution Status [...] disease acute Urinary tract infection acut e [facility] Work Phone: Evaluation note* Diagnosis Onset Date [...] disease acute Urinary tract infection acut e [facility] Work Phone: Evaluation note* Diagnosis Parkinson's disease (HCC) Paralysis agitans [facility] Diagnosis Parkinson's disease (HCC)- Primary Paralysis agitans Depression with anxiety Dysthymic disorder documented in this encounter [facility] note* Diagnosis Parkinson's disease without dyskinesia, with fluctuating manifestations- Primary Depression with anxiety Dysthymic disorder documented in this encounter [facility] note* Diagnosis Parkinson's disease Paralysis agitans documented in this encounter [facility] general Narrative - Reported* Type Description Date Medical History diabetes mellitus Medical History coronary artery disease Medical History Hypothyroidism Medical History Esophageal reflux Medical History depression Medical History essential tremor Surgical History tonsillectomy Surgical History cholecystectomy Surgical History appendectomy Surgical History hemorrhoidectomy Surgical History colonoscopy Surgical History heart catheterization Hospitalization History see above [facility] [employer] Other History [facility] - [facility] [employer] Other Progress note Author Enrrique Mota [facility] November 06, 2021 7:31am Note Date/Time November 05, 2021 3: 01pm [facility] [address] [place] [address] Hospitalist Progress Note Signed Patient: Alton Barker MR#: [id number] : 1940 Acct:[id number] Age/Sex: 81 / F Adm Date: 2 Loc: Room: 2I3888-4 Type: ADM INOo Attending Dr: Enrrique Mota MD Copies to: ~ Date of Service: 11/05/2021 Subjective Subjective Narrative: Patient seen and examined, sitting up in chair at time of exam. She is pleasant, mildly confused. She is oriented to self, knows she is at [facility]. Initially states year is 1920, then corrects [...] 500 Mg Tablet PO 11/05/22 07:59 BID.WITH.MEALS [facility] Metoprolol Tartrate 75 mg 11/04/21 21:00 11/05/21 [...] where she lives with her son and dttubtqa-dr-sbp Impaired mobility and ADLs Parkinson's disease ? Patient follows with neurology, Dr. Lal, and movement disorder specialist,Gloria Lal, BIOMEDICAL ENGINEERING DIRECTOR, at [facility] ? Continue Sinemet ? PT/OT eval's [...] signed by Enrrique Mota MD> 11/06/21 0731 [facility] Work Phone: Progress note Author Enrrique Mota [facility] November 07, 2021 4:52pm Note Date/Time November 06, 2021 11 :01am [facility] [address] [place] [address] Hospitalist Progress Note Signed Patient: Alton Barker MR#: [id number] : 1940 Acct:[id number] Age/Sex: 81 / F Adm Date: 2 Loc: Room: [address] [place] [address] Type: ADM INOo Attending Dr: Enrrique Mota MD Copies to: ~ Date of Service: 11/06/2021 Subjective Subjective Narrative: Patient is seen and examined. She is sitting up in bed at time of exam. When asked how she is feeling, she states not well, I am confused . She has howeveroriented to self, knows she is at [facility], and was able to tell me events surrounding her admission. She showed me a paper with senior care facilities listed on it, and indicated that [...] where she lives with her son and vhlvmsab-on-bgo Impaired mobility and ADLs Parkinson's disease ? Patient follows with neurology, Dr. Lal, and movement disorder specialist,Gloria Lal, ELDON, at [facility] ? Continue Sinemet ? PT/OT recommending [...] <Electronically signed by Enrrique Mota MD> 11/07/21 [facility] Work Phone: Progress note Author Enrrique Mota [facility] November 07, 2021 4:47pm Note Date/Time November 07, 2021 11 :18am [facility] [address] [place] [address] Hospitalist Progress Note Signed Patient: Alton Barker MR#: [id number] : 1940 Acct:[id number] Age/Sex: 81 / F Adm Date: 2 Loc: Room: [address] [place] [address] Type: ADM INOo Attending Dr: Enrrique Mota [...] where she lives with her son and mgrpkgpo-nj-shd Impaired mobility and ADLs Parkinson's disease ? Patient follows with neurology, Dr. Lal, and movement disorder specialist,Gloria Lal, BIOMEDICAL ENGINEERING DIRECTOR, at [facility] ? Continue Sinemet ? PT/OT recommending [...] <Electronically signed by Enrrique Mota MD> 11/07/21 6856 [facility] Work Phone: Progress note Author Enrrique Mota [facility] November 08, 2021 5:13pm Note Date/Time November 08, 2021 10 :47am [facility] [address] [place] [address] Hospitalist Progress Note Signed Patient: Alton Barker MR#: [id number] : 1940 Acct:[id number] Age/Sex: 81 / F Adm Date: 2 Loc: 3T Room: [address] [place] [address] Type: ADM INOo Attending Dr: Enrrique Mota [...] where she lives with her son and ummxstlp-ge-itq Impaired mobility and ADLs Parkinson's disease ? Patient follows with neurology, Dr. Lal, and movement disorder specialist,Gloria Lal, BIOMEDICAL ENGINEERING DIRECTOR, at [facility] ? Continue Sinemet ? PT/OT recommending [...] <Electronically signed by Enrrique Mota MD> 11/08/21 1713 [facility] Work Phone: Progress note Author Gaye Claire [facility] November 10, 2021 4:37pm Note Date/Time November 09, 2021 1: 11pm [facility] [address] [place] [address] Hospitalist Progress Note Signed Patient: Alton Barker MR#: [id number] : 1940 Acct:[id number] Age/Sex: 81 / F Adm Date: 2 Loc: Room: [address] [place] [address] Type: ADM INOo Attending Dr: Gaye Claire [...] movement disorder specialist, Gloria Lal CNP at [facility] ?Continue Sinemet UTI Ecoli ?ceftriaxone initiated 11/06, [...] <Electronically signed by Gaye Claire MD> 11/10/21 1637 [facility] Work Phone: Progress note Author Gaye Claire [facility] November 11, 2021 5:21pm Note Date/Time November 10, 2021 5: 36pm [facility] [address] [place] [address] Hospitalist Progress Note Signed Patient: Alton Barker MR#: [id number] : 1940 Acct:[id number] Age/Sex: 81 / F Adm Date: 2 Loc: 5T Room: [id number] Type: DIS INOo Attending Dr: Gaye Claire [...] 2 1736 Signed By: <Electronically signed by WILFRID Suh> 11/10/21 1757 <Electronically signed by Gaye Claire MD> 11/11/21 1721 [facility] Work Phone: Reason for referral (narrative)* Outpatient Procedure (Routine) - Pending Review Specialty Diagnoses / Procedures Referred By Contact Referred To [facility] Diagnoses Recurrent episodes of unresponsiveness Procedures EPIL EEG ROUTINE ELECTROENCEPHALOGRAM REC COMA/SLEEP ONLY Gloria Perez APRN.BIOMEDICAL ENGINEERING DIRECTOR [address] [place] [address] [facility] [address] [place] [address] Referral ID Status Reason Start Date Expiration Date Visits Requested Visits Authorized [id number] Pending Review Auto-Generat ed Referral 10/04/2021 10/04/2022 1 1 [facility] Summary Purpose Family History Relationship Condition Age at Onset Recorded Date/T denis Not Specified No pertinent family history Unknown Advance Directives Advance Directive Response Recorded Date/ Time Advance [...] (HCC) Procedures PROVIDER ORDERED FOLLOW UP OFFICE/OUTPATIENT [facility] 60-74 MINUTES Gloria Perez APRN.BIOMEDICAL ENGINEERING DIRECTOR [address] [place] [address] Referral ID Status Reason Start Date Expiration Date Visits Requested Visits Authorized [id number] Pending Review PCP Requested Referral 3 07/08/2023 1 1 Additional Source Comments INFORMATION SOURCE (unrecogn ized section and content) DATE CREATED AUTHOR 11/02/2017 [employer] DATE CREATED AUTHOR AUTHOR'S ORGANIZ ATION 09/09/2021 [facility] Specialist DATE CREATED AUTHOR AUTHOR'S ORGANIZ ATION 06/01/2022 [facility] DATE CREATED AUTHOR AUTHOR'S ORGANIZ ATION 07/23/2022 [facility] DATE CREATED AUTHOR AUTHOR'S ORGANIZ ATION 02/14/2023 [facility] DATE CREATED AUTHOR AUTHOR'S ORGANIZ ATION 04/02/2023 [facility] dical Specialists EPIC Goals (unrecognized section and [...] disease Procedures PROVIDER ORDERED FOLLOW UP OFFICE/OUTPATIENT [facility] 60-74 MINUTES Gloria Perez, HEIDI.BIOMEDICAL ENGINEERING DIRECTOR [address] [id number] Referral ID Status Reason Start Date Expiration Date Visits Requested Visits Authorized [id number] Pending Review PCP Requested Referral 3 07/08/2023 1 1 Reason Comments Medication Problem Source Comments (unrecognize d section and content) In the event this informatio n is protected by the Federal Confidentiality of Alcohol and Drug Abuse Patient Records regulations: The Federal rules restrict any use of the information to criminally investigate or prosecute any alcohol or drug abuse patient.[facility] the event this information is protected by the Federal Confidentiality of Alcohol and Drug Abuse Patient Records regulations: The Federal rules restrict any use of the information to criminally investigate or prosecute any alcohol or drug abuse patient.[facility] Hospital[facility] the event this information is protected by the Federal Confidentiality of Alcohol and Drug Abuse Patient Records regulations: The Federal rules restrict any use of the information to criminally investigate or prosecute any alcohol or drug abuse patient.[facility] Hospital[facility] the event this information is protected by the Federal Confidentiality of Alcohol and Drug Abuse Patient Records regulations: The Federal rules restrict any use of the information to criminally investigate or prosecute any alcohol or drug abuse patient.[facility] Hospital[facility] the event this information is protected by the Federal Confidentiality of Alcohol and Drug Abuse Patient Records regulations: The Federal rules restrict any use of the information to criminally investigate or prosecute any alcohol or drug abuse patient.[facility] Hospital[facility] the event this information is protected by the Federal Confidentiality of Alcohol and Drug Abuse Patient Records regulations: The Federal rules restrict any use of the information to criminally investigate or prosecute any alcohol or drug abuse patient.[facility] HospitalIn the event this information is protected by the Federal Confidentiality of Alcohol and Drug Abuse Patient Records regulations: The Federal rules restrict any use of the information to criminally investigate or prosecute any alcohol or drug abuse patient.[facility] HospitalIn the event this information is protected by the Federal Confidentiality of Alcohol and Drug Abuse Patient Records regulations: The Federal rules restrict any use of the information to criminally investigate or prosecute any alcohol or drug abuse patient.[facility] Hospital[facility] the event this information is protected by the Federal Confidentiality of Alcohol and Drug Abuse Patient Records regulations: The Federal rules restrict any use of the information to criminally investigate or prosecute any alcohol or drug abuse patient.[facility] Care Teams (unrecognized sec tion and [...] Misha Ziegler MD Other Provider Active Chery Coronaod APRN Other Provider Active José Miguel Tellez [...] MD Other Provider Active Faustina Barr , HANDICRAFT OR HOBBY SHOP MANAGER-C Other Provider Active Valente Lauren MD Other [...] Status: Inactive Member Role Status Dates Honey Carrascokoki , DO Primary Care Provider Active Marvin Peter , DO Emergency Provider Active Enrrique Mota MD Admit Provider Active Jairo Benson MD Other Provider Active Oswaldo Almonte MD Other Provider Active Gaye Claire MD Attending Provider Active Terminal Gauger Relationship Specialty Start Date End Date Honey Rabago, DO [address] [place] [address] PCP - General 02/16/05 Terminal Gauger Relationship Specialty Start Date End Date Honey Rabago, DO [address] [place] [address] PCP - General 02/16/05 Terminal Gauger Relationship Specialty Start Date End Date Honey Rabago, DO [address] [place] [address] PCP - General 02/16/05 Team Status: Active Member Role Status Dates Honey Gilmanaura , Primary Care Provider Active Alcides Moya [...] MD Other Provider Active Faustina Barr , HANDICRAFT OR HOBBY SHOP MANAGER-C Other Provider Active Valente Lauren MD Other [...] Primary Care Provider, Attending Paula mock Active Terminal Gauger Relationship Specialty Start Date End Date Honey Rabago, DO [address] [place] [address] PCP - General 02/16/05 Terminal Gauger Relationship Specialty Start Date End Date Honey Rabago, DO [address] [place] [address] PCP - General 02/16/05 Terminal Gauger Relationship Specialty Start Date End Date Honey Rabago, DO [address] [place] [address] PCP - General 02/16/05 Terminal Gauger Relationship Specialty Start Date End Date Honey Rabago, DO [address] [place] [address] PCP - General 02/16/05 Terminal Gauger Relationship Specialty Start Date End Date Honey Rabago DO [address] [place] [address] PCP - General 02/16/05 Terminal Gauger Relationship Specialty Start Date End Date Honey Rabago DO [address] [place] [address] PCP - General 02/16/05 Terminal Gauger Relationship Specialty Start Date End Date Honey Rabago, PCP - General Internal Medicine 07/28/22 FOR RECORDS PERTAINING TO PATIENTS WHO ARE [...] BE BASED ON THE PRIMARY CLINICAL RECORDS. [facility] [employer] [facility]. provides no warranty or guarantee of the accuracy or completeness of information in this document.
[2023-05-30 08:14] LABS: INR 3.83; Prothrombin Time 37.6 sec (9.0-11.6)
== END 2023-05-30 02:57 | disposition home or self-care (01) ==
LOC: LAB 02:56
PROVIDERS: PCP Internal Medicine; Visit Provider Internal Medicine
DX: E55.9 Vitamin D deficiency, unspecified (principal); E11.9 Type 2 diabetes mellitus without complications; E66.9 Obesity, unspecified; E78.5 Hyperlipidemia, unspecified; G20.C Parkinsonism, unspecified; G31.84 Mild cognitive impairment of uncertain or unknown etiology
CPT/HCPCS: 36415; 85610

== ENCOUNTER 2023-10-11 10:15 | Outpatient (REF) | payer MEDICARE, SELFPAY ==
--- OUTSIDE RECORDS SUMMARY | 2023-10-12 03:48 | XMS_ITS | CCD ---
Author Organization [facility] ion [facility] Care Team Providers Care Station Installer And Repairer Name Role Phone Honey Rabago Primary Care Provider Honey Rabago Attending Provider Anu Alva Unavailable Honey Rabago DO Primary Care Provider Honey Rabago DO Primary Care Provider Oswaldo Almonte Unavailable DO Honey Rabago Primary Care Provider [phone] DO Sumanth Lowe Emergency Provider DO Holger Dorado Emergency Provider DO Honey Rabago Attending Provider [phone] DO Marvin Peter Emergency Provider [phone] MD Enrrique Mota Admit Provider MD Jairo [...] Provider MD Damion Thapa Other Provider Cortney, SENIOR MAINTENANCE MECHANIC-C Faustina Quiroga Other Provider MD Valente Lauren [...] Other Provider MD Gaye Claire Attending Provider [phone] MD Alcides Moya Admit Provider MD Alcides Moya Attending Provider KORTNEY Mehta Other Provider Unavailable KORTNEY Hannah Other Provider Unavailable KORTNEY Dutton Other Provider Unavailable KORTNEY Garrett Other Provider Unavailable Sarah RN Karen Other Provider Unavailable KORTNEY Ayon Other Provider Unavailable MD Familia Villatoro Other Provider MD Misha Ziegler Other Provider Dials, INTERNAL COMBUSTION ENGINE INSPECTOR Chery M Other Provider DO José Miguel [...] Other Provider DO Lázaro Pratt Other Provider [phone] MD Corona Weathers Other Provider KORTNEY Terry Other Provider Unavailable DO Honey Rabago Attending Provider Honey Rabago DO Primary Care Provider DO Honey Rabago Primary Care Provider DO Honey Rabago Attending Provider [phone] Honey Rabago Attending Unavailable Honey Rabago Admitting [...] Consulting Unavailable Toney, Misha K Consulting Unavailable Dials, Chery M Consulting Unavailable José Miguel Tellez Consulting Unavailable George Chan Consulting Unavailable Justice De Oliveira Consulting Unavailabl e Svetlana, Enrrique Consulting Unavailable Semaskiene, Rosa Maria Consulting Unavailable Tonya Suh Consulting Unavailable Juan Wallace Consulting Unavailable Jerson Walker Consulting Unavailable Gaye Claire Consulting Unavailable Queta Mclain Consulting Unavailable Rd Blackmon Consulting Unavailable Anibal Gallagher Consulting Unavailable Damion Thapa Consulting Unavailable Faustina Barr Consulting Unavailable DoameartorValente Consulting Unavailab Kareem Estrella Consulting Unavailable FilemonItalia delgado Consulting Unavailable Lety, Ronan Consulting Unavailable Shantel Nayak Consulting Unavailable Frank Mooney, Kaylie Consulting Unavailab Michael Hearn Consulting Unavailable MiniaciSony Consulting Unavailable Obika Amanda Consulting Unavailable Lázaro Pratt Consulting Unavailable DaromarCornoa Consulting Unavailable Lee Ann Terry Consulting Unavailable [...] Admitting Unavailable VASCHAK, DR MÉNDEZ Consulting Unavailable Vaschak DO, Honey J Primary Care Provider [phone] GLORIA PEREZ Attending Unavailable HONEY RABAGO Primary Care Unavailab GLORIA Villeda Attending Unavailable HONEY RABAGO Primary Care Unavailab GLORIA Villeda Referring Unavailable HONEY RABAGO Primary Care Unavailab GLORIA Villeda Attending Unavailable HONEY RABAGO Attending Unavailable HONEY RABAGO Referring Unavailable HAMILTON YUEROFERNANDO Referring Unavailable URBANO HUTTON Attending Unavailable HONEY RABAGO Attending Unavailable HONEY RABAGO Referring Unavailable VALORIE SULLIVAN Attending Unavailable URBANO HUTTON Attending Unavailable URBANO HUTTON Attending Unavailable Allergies Allergy Classification Reported Allergen(s) Allergy Type Date of Onset Reaction(s) Facility Aminoketones (1 source) buPROPion Drug Allergy 08-01-19 21 Hallucinating [facility] Latex (1 source) Latex Substance Allergy 08-01-19 Rash [facility] Opioid Agonists (1 source) HYDROcodone Drug Allergy 08-01-19 21 Unknown Reaction [facility] (20 sources) Acetaminophen / HYDROcodone; Translations: [Vicodin] Drug Allergy Unknown [facility] Repository (20 sources) buPROPion; Translations: [BUPROPION] Drug Allergy 01-19-20 17 Mental Status Change, Other [facility] Work Phone: (20 sources) Latex Propensity to adverse reactions 11-05-19 22 Unknown, [facility] (12 sources) Acetaminophen / HYDROcodone; Translations: [HYDROCODONE-ACET AMINOPHEN] Drug Allergy 04-13-19 17 Mental Status Change, Other [facility] (11 sources) Adhesive Tape; Translations: [ADHESIVE TAPE (ROSINS)] Allergy to substance 01-13-20 [facility] Work Phone: (12 sources) Latex; Translations: [LATEX, NATURAL RUBBER] Drug Allergy 04-13-19 17 [facility] (11 sources) rosuvastatin; Translations: [ROSUVASTATIN CALCIUM] Drug Allergy 01-13-20 [facility] Work Phone: (7 sources) HYDROcodone; Translations: [hydrocodone] Drug Allergy 01-13-[address] [facility] (1 source) buPROPion Drug Allergy 11-05-19 [facility] Repository (1 source) Latex Drug allergy (disorder) 11-05-19 [facility] Repository (1 source) natural latex rubber Drug allergy (disorder) [facility] Repository (1 source) Rosuvastatin calcium Allergy to substance 01-13-20 Unknown [facility] (1 source) Other Allergy to substance 01-13-20 Rash [facility] Medications Current Medications Medication Drug Class(es) [...] 01/18/2023: Pt takes 2 tabs daily per [employer] med list 0 Active take 1 tablet by rc th every six hours as needed Acetaminophen 500 MG 1 tablet as needed Orally every 6 hrs Active Comment on above: Take 500 mg by mouth every 8 hours as needed. 01/18/2023: Pt takes 2 tabs daily per [employer] med list Aspir-81 (16 sources) Aspir-81 Active [...] evening. 0 04/13/2022 Active Start: 11-04-2021 End: 02-11-2024 take 1.5 tablets by mouth three times daily carbidopa-levodopa (SINEMET 25-100) 25-100 mg per tablet Indications: Parkinson's disease (HCC) Take 1.5 tablets by mouth three times a day. 405 tablet 3 02/11/2023 02/11/2024 Active Start: 11-04-2021 take 1.5 tablets by mouth [...] 1.5 tablets by mouth three times daily. Take 1.5 tablets by mouth three times a day. cholecalciferol 0.125 mg oral capsule (20 sources) [...] Take by mouth once daily. 0 Active cholecalciferol (Vitamin D-3) 50 MCG (2000 UT) capsule 1 capsule 1 (one) time each day at the same time. 0 Active take 1 capsule by mo uth once daily Cholecalciferol 125 MCG (5000 UT) 1 capsule Orally Once a day Active Cholecalciferol, Vitamin D3, 1,000 unit cap Take by mouth once daily. 0 Active Comment on above: Take by mouth once d aily. Continuous Blood Gluc Sensor (FreeStyle Vivian 2 Sensor) [facility] (1 source) Start: 02-14-2023 Continuous Blood Gluc Sensor (FreeStyle Vivian 2 Sensor) [facility] Indications: Type 2 diabetes mellitus with other specified complication, unspecified whether alf insulin use ([facility]) apply 1 SENSOR to back OF UPPER ARM REMOVE AND REPLACE every 14 days 6 each 3 02/14/2023 Active estradiol 0.1 mg/ml vaginal cream (4 sources) Estrogen Start: 12-20-2022 End: 12-20-2023 estradiol [...] week. fluocinolone acetonide 0.1 mg/ml topical oil (5 sources) Corticosteroid Start: 10-07-2022 Fluocinolone Acetonide Scalp 0.01 % oil Indications: Other seborrheic dermatitis Apply to scalp at bedtime as needed for rough, scaly area 118.28 mL 10/07/2022 Active Fluocinolone-Elissa wer Cap 0.01 % oil by scalp route. 0 Active Comment on above: by scalp route. fluocinonide 0.5 mg/ml topical solution (1 source) Corticosteroid Start: 10-07-2022 fluocinonide (Lidex) 0.05 % external solution Indications: Other seborrheic dermatitis Apply to affected areas on the scalp every day prn flares 60 mL 10/07/2022 Active ketoconazole 20 mg/ml medicated shampoo (9 sources) Azole Antifungal Start: 10-07-2022 ketoconazole (NIZOral) [...] mg oral tablet (20 sources) l-Thyroxine Start: 01-19-20 17 End: 08-10-19 24 take 1 tablet by mouth before mealtime levothyroxine (Synthroid, Levoxyl) 75 MCG tablet Indications: Hypothyroidism, unspecified type (CMS/HCC) Take 1 tablet (75 mcg) by mouth in the morning. Take before meals. 90 tablet 1 02/11/2023 08/10/2023 Active Synthroid 75 MCG 1 tablet every [...] Start: 02-12-2022 take 1 tablet by mouth in the morning metFORMIN (Glucophage) 500 MG tablet Indications: Type 2 diabetes mellitus with other specified complication, unspecified whether log snaker insulin use ([facility]) Take 1 tablet (500 mg) by mouth in the morning and 1 tablet (500 mg) before bedtime. 90 tablet 3 02/15/2023 Active Start: 01-18-2017 take 50 mg by mouth twice gautam y Metformin Active 50 MG PO Twice daily January 18, 2017 7:43am Start: 01-18-2017 End: 11-25-2021 take 1000 mg by mouth twice daily at mealtime Metformin Active 1000 MG PO Twice daily with meals November 23, 2021 11:00pm take 1 tablet [...] oral tablet (20 sources) beta-Adrenergic Migdalia Start: 03-21-2023 metoprolol tartrate (Lopressor) 50 MG tablet Indications: Hypertension, unspecified type (CMS/HCC) Take 1.5 tablets (75 mg) by mouth every 12 (twelve) hours 135 tablet 3 03/21/2023 Active Start: 01-13-2022 take 1 tablet by rc th twice daily at mealtime metoprolol tartrate, short [...] by mouth twice daily. 0 Active take 1 tablet by rc th every twenty-four hours metoprolol succinate XL (Toprol-XL) 25 MG 24 hr tablet Take by mouth Do not crush or chew. 0 Active take 2 tablets by mo [facility] every twelve hours Metoprolol Tartrate [...] Take 25 mg by mouth twice daily. Multiple Vitamins-Minerals (PRESERVISION AREDS 2 PO) (1 source) Multiple Vitamins-Minerals (PRESERVISION AREDS 2 PO) Take by mouth 2 (two) times a day. 0 Active omeprazole 20 mg delayed release oral capsule (20 sources) Proton Pump Inhibitor Start: 8 take 1 capsule by mouth once daily omeprazole (PriLOSEC) [address] capsule Indications: Gastroesophageal reflux disease without esophagitis Take 1 capsule (20 mg) by mouth 1 (one) time each day at the same time 90 capsule 3 03/01/2023 Active Start: 01-18-2017 take 40 mg by [...] November 04, 2021 5:03pm polyethylene glycol 3350 99978 mg powder for oral solution (17 sources) Osmotic Laxative Start: 11-10-2021 End: 11-25-2021 [...] 24, 2021 1:28pm 1 tab daily on Tue, , Tue, Tue, Sat, Sun 0.5 tab daily on Comment on above: 1 tablet once daily. Completed/Discontinued Medications Medication Drug Class(es) Dates Sig (Normalized) Sig (Original) ascorbic acid 226 mg / cuprous oxide 0.8 mg / dl-alpha tocopheryl acetate 200 unt / lutein 5 mg / zinc oxide 34.8 mg oral capsule (8 sources) Vitamin C Start: 02-22-2017 End: 07-10-2017 Vit G-F-Fptidr-Zinc-Lute in (Preservision Lutein) 226 mg-200 unit -5 [...] hours diclofenac sodium 0.01 mg/mg topical gel (11 sources) Nonsteroidal Anti-inflammatory Drug Start: 05-08-2022 diclofenac (VOLTAREN) 1 % topical gel Start: 05-08-2022 diclofenac sod ium 1 % gel Apply 2 g topically 0 05/08/2022 Active End: 01-20-2023 diclofenac sodium 10% topica l [...] ea. docusate sodium 50 mg / sennosides, long term 8.6 mg oral tablet (5 sources) Start: 11-10-2021 End: 11-25-2021 take 2 tablets by mouth twice daily Sennosides-Docusate Sodium (Stool Softener-Stimulant Laxat) 8.6-50 mg Tablet Discontinued 2 TAB PO Twice daily 0 November 09, 2021 11:00pm November 25, 2021 3:31pm Start: 11-10-2021 take 2 tablets by mo uth twice daily Sennosides-Docusate Sodium (Stool Softener-Stimulant Laxat) 8.6-50 mg Tablet Active 2 TAB PO Twice daily 0 November 10, 2021 12:00am Start: 11-10-2021 take 2 tablets by mo uth twice daily Sennosides-Docusate Sodium (Stool Softener-Stimulant Laxat) [...] 2017 5:44pm FREESTYLE VIVIAN 2 SENSOR kit (7 sources) Start: 01-25-2022 FREESTYLE LIBR E 2 [...] 1 tablet by rc th once daily. gabapentin 300 mg oral capsule (7 sources) Anti-epileptic Agent Start: 01-26-2022 End: 01-20-2023 take 1 capsule by mouth once daily at bedtime gabapentin (NEURONTIN) 300 mg capsule Take 300 mg by mouth daily at bedtime. 0 01/26/2022 01/20/2023 Discontinued (Course of therapy completed) take 1 capsule by mo [facility] every twenty-four hours Gabapentin 300 [...] on above: Take by mouth. MEDICATION, NON-DATABASE (3 sources) MEDICATION, NON-DATABASE 750 mg two times a day. Antiacid extra strength 0 Active Comment on above: 750 mg two times a d ay. Antiacid extra strength mirtazapine 7.5 mg oral tablet (19 sources) Start: 01-25-2022 End: 08-10-2023 take 1 tablet by mouth once daily [...] 10, 2021 12:00am take 1 tablet by cr every twenty-four hours Mirtazapine 7.5 MG 1 [...] mg one tab orally daily Active SITagliptin 50 mg oral tablet (20 sources) Dipeptidyl Peptidase 4 Inhibitor Start: 05-02-2023 take 1 tablet by mouth once daily in the morning JANUVIA 50 mg tablet Take 50 mg by mouth every morning. 0 05/02/2023 Active Start: 01-20-2023 take 0.5 tablet by m outh in the morning Januvia 100 MG tablet Indications: Diabetic peripheral neuropathy associated with type 2 diabetes mellitus (CMS/HCC) Take 0.5 tablets (50 mg) by mouth in the morning. Take 50 mg by mouth in the morning.. 90 tablet 1 01/20/2023 Active Start: 06-12-2022 End: 06-23-2023 JANUVIA 100 mg tablet Take 5 0 mg by mouth once daily. 0 06/12/2022 06/23/2023 Discontinued End: 07-08-2022 take 1 tablet by mouth once daily SITagliptin phosphate (JANUVIA) 50 mg tablet Take 50 mg by mouth once daily. 0 07/08/2022 Discontinued take 1 tablet by rc th every twenty-four hours Comment on above: Take 100 mg by mouth once daily. Take 50 mg by mouth once daily. Take 50 mg by mouth every morning. solifenacin succinate 5 mg oral tablet (20 [...] 09, 2017 11:00pm November 04, 2021 5:12pm 24 hr venlafaxine 150 mg extended release oral capsule (20 sources) Serotonin and Norepinephrine Reuptake Inhibitor Start: 05-01-2023 take 1 capsule by mouth once daily in the morning venlafaxine ER (EFFEXOR XR) 150 mg 24 hr capsule Take 150 mg by mouth every morning. 0 05/01/2023 Active Start: 02-15-2023 take 1 capsule by mo uth every twenty-four hours in the morning venlafaxine XR (Effexor XR) 150 MG 24 hr capsule Indications: Recurrent major depression in full remission (CMS/HCC) Take 1 capsule (150 mg) by mouth in the morning. 90 capsule 3 02/15/2023 Active Start: 01-10-2023 take 1 tablet by rc th in the morning venlafaxine (Effexor) 75 MG tablet Indications: Recurrent major depression in full remission (CMS/HCC) Take 1 tablet (75 mg) by mouth in the morning. 90 tablet 3 02/15/2023 Active Start: 01-10-2023 End: 06-23-2023 VENLAFAXINE ER 150 MG TABLET,EXTENDED RELEASE 24 [...] once daily. Take 75 mg by mouth. Take 150 mg by mouth every morning. Vit C,F-Jv-Kwwvt-Lutei n-Zeaxan (Preservision Areds-2) 472-054-12-1 ql-zhas-qt-mg Capsule (6 sources) Start: 01-18-2017 End: 07-10-2017 take 1 tablet by mouth once daily at bedtime Vit C,B-Xv-Ycbij-Lutein-Ze axan (Preservision Areds-2) 231-423-03-1 vu-cele-gs-mg Capsule Discontinued 1 TAB PO every day in the morning and at bedtime January 18, 2017 7:43am July 10, 2017 6:45pm Start: 01-18-2017 End: 07-10-2017 take 1 tablet by mouth once daily at bedtime Vit C,E-Ir-Czjqx-Lutein-Zeaxan (Preservision Areds-2) 130-575-76-1 ie-aqhl-il-mg Capsule Discontinued 1 TAB PO every day in the morning and at bedtime January 18, 2017 12:00am July 10, 2017 5:45pm Start: 01-18-2017 End: 07-10-2017 take 1 tablet by mouth once daily at bedtime Vit C,H-Yi-Xzoeg-Lutein-Zeaxan (Preservision Areds-2) 008-801-76-1 ps-mjwy-em-mg Capsule Discontinued 1 TAB PO every day in the morning and at bedtime January 18, 2017 1:00am July 10, 2017 6:45pm Vit C,X-Wf-Zbnec-Lutein-Zeax an (Preservision Areds-2) 250-90-40-1 mg Capsule (5 sources) Start: 11-04-2021 End: 11-25-2021 Vit C,S-Ri-Qnlsc-Lutein-Zeax an (Preservision Areds-2) 250-90-40-1 mg Capsule Discontinued 1 TAB PO Twice daily November 03, 2021 11:00pm November 25, 2021 3:32pm Start: 11-04-2021 End: 11-25-2021 Vit C,D-Es-Oqydf-Lutein-Zeax an (Preservision Areds-2) 250-90-40-1 mg Capsule Discontinued 1 TAB PO Twice daily November 04, 2021 12:00am November 25, 2021 4:32pm Start: 11-04-2021 Vit C,E-Zn-Instrument Lens Generator jl-Utvrup-Hqhqkf (Preservision Areds-2) 250-90-40-1 mg Capsule Active 1 TAB PO Twice daily November 04, 2021 12:00am vit C/vit E ac/lut/copper/zinc (PRESERVISION LUTEIN ORAL) (10 sources) vit C/vit E ac/lut/copper/zinc (PRESERVISION LUTEIN ORAL) Take by mouth twice daily. 0 Active Comment on above: Take by mouth twice daily. vitamin b12 0.5 mg oral tablet (20 sources) Vitamin B12 Start: take 2 tablets [...] Comment on above: Take 1 tablet by cr th once daily. Take 2 tablets by mo [facility] once daily. Warfarin - Pharmacy Dosing (Coumadin [...] [Unspecified abdominal pain] 11-09-2021 Episodic Anxiety disorders (8 sources) Mixed anxiety and depressive disorder; Translations: [Other specified anxiety disorders] Onset: 06-02-2020 Chronic Coronary atherosclerosis and other heart disease (1 source) Coronary atherosclerosis; Translations: [Atherosclerotic heart disease of [place] coronary artery without angina pectoris] Onset: 12-20-2022 [...] mellitus without complications] Onset: 11-11-2021 11-09-2021 Chronic Diseases of mouth; excluding dental (1 source) Excessive salivation; Translations: [Disturbances of salivary secretion] 06-23-2023 Episodic Disorders of lipid metabolism (11 sources) Hyperlipidemia; [...] deficiency, unspecified] Onset: 12-16-2014 12-20-2022 Chronic Osteoarthritis (11 sources) Osteoarthritis; Translations: [Osteoarthrosis, unspecified whether generalized [...] encounter] 11-09-2021 Episodic Other lower respiratory disease (2 sources) Fibrosis of lung; Translations: [Pulmonary fibrosis, unspecified] Onset: 04-14-2023 04-14-2023 Chronic Other nervous system disorders (1 source) Unresponsive ; Translations: [Other symptoms and signs involving cognitive functions and awareness] Episodic Other nutritional; endocrine; and metabolic disorders (20 sources) Body mass index 40+ - severely obese; Translations: [Body mass index (BMI) 40.0-44.9, adult] Chronic Other nutritional; endocrine; and metabolic disorders (4 sources) Obese class I; Translations: [Obesity, unspecified] Onset: 07-08-2022 07-08-2022 Chronic Other nutritional; endocrine; and metabolic disorders (1 source) Morbid obesity; Translations: [Morbid (severe) obesity due to excess calories] Onset: 10-31-2017 12-20-2022 Chronic Parkinson`s disease (20 sources) Parkinson's disease; Translations: [Parkinson's disease] Onset: 11-01-2016 Chronic Parkinson`s disease (1 source) Parkinson`s disease; Translations: [Parkinson's disease without dyskinesia, with fluctuating manifestations (HCC)] Onset: 01-20-2023 Peripheral and visceral atherosclerosis (1 source) Peripheral [...] sources) Long-term current use of anticoagulant; Translations: [tank 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 (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) use of anticoagulants] Onset: 11-01-2016 11-09-2021 Episodic Other aftercare (13 sources) custodial (current) use of anticoagulants; Translations: [Long-term (current) use of anticoagulants] Onset: 11-04-2021 11-11-2021 Episodic Other aftercare (1 source) Anticoagulant effect; Translations: [tank 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 (current) use of anticoagulants] Onset: 12-20-2022 12-20-2022 [...] Test Name Value Interpretation Reference Range Facility [facility] 06-23-2023 CNOV Office Visit (NRMDN) -- ALTON BARKER ([id number]) 1940 F Date Time Provider Department 06/23/23 3:00 PM GLORIA PEREZ During your visit today, we recorded the following information about you: Weight Height 107.6 kg 1.676 m Gloria Perez APRN.CNP 06/23/2023 8:12 PM Signed [facility] - FOLLOW UP EVALUATION Honey Rabago DO [address] [place] [address] Dear Honey Rabago DO: I had the pleasure of seeing Ms. Barker for follow-up today. As you know she is a 82 year old right-handed female with a history of Parkinson's disease since 2013. She is seen with her son. Subjective Previous Plan-01/20/2023 Visit: Parkinson's disease: Continue current medication schedule but discuss with the ski lift attendant if you can take the Sinemet on [...] GI specialist who previously stretched your esophagus Interval History: She fell asleep this morning on the toilet from approximately 7am-11am. She missed her morning medications as a result. When she falls asleep in bed at night or takes a nap, she does use her Cpap, but if falls asleep outside of her bed, she does not. Starting yesterday, she has had an occasionally have arm jerking out (4 times this week). It has mostly been in the evening. She was recently diagnosed with pulmonary fibrosis. Movement Disorders Medications Schedule - as of the start of the visit: Medications 7am 12pm 5pm Bedtime Sinemet 25/100 1.5 1.5 1.5 Effexor 150mg 1 Effexor 75mg 1 Mirtazapine 7.5mg 1 Parkinson's Motor Complications Medication benefit onset: 10 minutes Medication duration: (Comment: 4-4.5) Wearing off: yes (Comment: She will have tremor when it wears off. If she is busy, she will likely not notice it wearing off.) Painful off-state dystonia: no Dyskinesia: no Prior Anti-Parkinson Therapies Carbidopa/Levodopa Questionnaires: In addition, the following areas that may be affected by abnormal involuntary movements were evaluated: Daily activities Difficulties with eating: Yes (mild) Difficulties in dressing: Yes (mild) Difficulties with hygiene activities: Yes (slight) Difficulties with handwriting: Yes (severe) Difficulties with doing hobbies and other activities: Yes (mild) Difficulties turning in bed: Yes (slight) Difficulties getting out of bed, car or chair: Yes (mild) Tremors/Gait/Balance Shaking or tremors: Yes (mild) Walking and balance problems: Yes (moderate) She uses a walker. Number of falls in the Last Month: 1x This happened a few days ago when getting changd for dinner and she turned around and sat in the clothes basket full of dirty clothese. She was not injured. Gait freezin (none) Autonomic/Pain Lightheadeness on standing: Yes (mild) Urinary problems: Yes (severe) Constipation problems: Yes (mild) Pain and other sensations: Yes (moderate) Speech/Swallowing Speech problems: Yes (slight) Drooling: Yes (moderate) Has always had at night but is now drooling some during the day Chewing and swallowing problems: Yes (slight) Sleep/Fatigue Sleep problems: 0 (none) Daytime sleepiness: Yes (mild) Fatigue: Yes (mild) Mood/Behavior Depression: PHQ-9 Score: 6 usually representing mild (5-9) depression. She said her mood is an up and down day by day thing. Anxiety: GREGORY-7 Total Score: 0 usually representing no significant (0-4) anxiety. Finally, the following table shows the patient's overall global physical and mental health using the PROMIS scale: PROMIS-10 Flowsheet Row Office Visit from 06/23/2023 in Neurology Office Visit from 10/01/2021 in Neurology Global Physical Health T Score 34.9 34.9 Global Mental Health T Score 45.8 38.8 0-10 Standard Pain Scale 2 3 *PROMIS-10 scoring scale: mean = 50, over 50 is above average, under 50 is below average In addition, the following non-motor symptoms and palliative concerns were evaluated: Sleep/Fatigue: REM sleep behavior disorder: No She is not sure but is not tangled in her sheets, bed is not a mess, she has not fallen out of bed, etc. Restless Legs Syndrome: No Leg swelling: Intermittent Impaired sense of smell: Yes Cognition: Cognitive impairment: yes She said she is more confused especially if there is change to her schedule. Her son noted that her thinking is much better when she uses her Cpap consistently. [facility] Cognitive assessment: 29 (02/03/2021) Hallucinations and delusions: no Apathy: This is better. Impulse control disorder: No No (more content not included)... Normal [facility] ALL HEMOGLOBINon 04-27-2023 Hemoglobin (Bld) [Mass/Vol] 11.7 g/dL Low 12.0 - 16.0 g/dL [facility] Interpretation and review of laboratory results Abnormal [facility] XR CHEST 2 VIEWSon 4 XR CHEST 2 VIEWS XR CHEST 2 [...] Moya, DO Normal Not Available Bebe 02-11-2023 [facility] Telephone (WALTERMDN) -- ALTON BARKER ([id number]) 1940 F Date Time Provider Department 02/11/23 GLORIA PEREZ During your visit today, we recorded the following information about you: Mary Anne Beatty 02/11/2023 1:54 PM Signed E- [id number] [place] [id number] - [address] [facility] [phone] [id number] carbidopa-levodopa (SINEMET 25-100) 25-100 mg per tablet Patient son called in today in regards to medication and wanting to switch pharmacy, they were told the best way to do this would be to request a new prescription. They would like it sent to [facility] Thank you! Anu Hillman RN 02/11/2023 [...] Date Reviewed: 01/20/2023 Reviewed by: Gloria Perez APRN.DIGITAL IMAGING SPECIALIST - Fully Assessed Reason for Visit: Medication [...] 01/18/2023: Pt takes 2 tabs daily per [employer] med list - MEDICATION, NON-DATABASE 750 mg [...] BY MOUTH TWICE DAILY WITH FOOD - [employer] VIVIAN 2 SENSOR kit apply 1 SENSOR [...] Of Date 02/11/2023 Noted Resolved OSTEOARTHROS KNEE [[id number]] 06/29/2012 Parkinson's disease without dyskinesia, with fl*03/02/2018 Obesity, Class I, BMI 30-34.9 [E66.9] 07/08/2022 Depression with anxiety [F41.8] 01/20/2023 Encounter Status:Closed by MARY ANNE BEATTY on 02/11/23 [facility] CNOVon 01-20-2023 CNOV Office Visit (NRMDN) -- ALTON BARKER ([id number]) 1940 F Date Time Provider Department 01/20/23 3:00 PM [facility] During your visit today, we recorded the following information about you: Height 1.676 m Gloria Perez APRN.[facility] 01/24/2023 12:36 PM Signed [facility] - FOLLOW UP EVALUATION Honey Rabago DO [address] [place] [address] Dear Honey Rabago DO: I had the [...] Change halluc (more content not included)... Normal [facility] CULTURE URINEon 07-16-2022 CULTURE URINE Isolate [...] Trimethoprim/Sulfamethoxaz ole <=20 S F Normal The [facility] Comment on above: Performed By: #### U RCX #### [facility] [address] [place] [address] Dr. Joyce Strauss UA (CLEAN/CATCH) HISTORICAL GUIDE/MICRO I F IND.on 2022 Bilirubin Ql (U) Negative Normal NEGATIVE The [facility] Comment on above: Performed By: #### U MICRO, UACSIND #### [facility] [address] [place] [address] Dr. Joyce Strauss Clarity (U) CLEAR Normal CLEAR [facility] Comment on above: Performed By: #### U MICRO, UACSIND #### [facility] [address] [place] [address] Dr. Joyce Strauss Color (U) LT. YELLOW Normal YELLOW [facility] Comment on above: Performed By: #### U MICRO, UACSIND #### [facility] [address] [place] [address] Dr. Joyce Strauss Glucose Ql (U) Negative Normal NEGATIVE The [facility] Comment on above: Performed By: #### U MICRO, UACSIND #### [facility] [address] [address] [address] Joyce Strauss Hemoglobin Ql (U) Negative Normal NEGATIVE [facility] Comment on above: Performed By: #### U MICRO, UACSIND #### [facility] [address] [address] [address] Joyce Strauss Ketones Ql (U) Negative Normal NEGATIVE [facility] Comment on above: Performed By: #### U MICRO, UACSIND #### [facility] [address] [address] [address] Joyce Strauss LEUKOCYTES LARGE Abnormal NEGATIVE [facility] Comment on above: Performed By: #### U MICRO, UACSIND #### [facility] [address] [address] [address] Joyce Strauss Nitrite Ql (U) Positive Abnormal NEGATIVE [facility] Comment on above: Performed By: #### U MICRO, UACSIND #### [facility] [address] [address] [address] Joyce Strauss pH (U) 5.5 [pH] Normal 5-9 [facility] Comment on above: Performed By: #### U MICRO, UACSIND #### [facility] [address] [place] [address] Dr. Joyce Strauss SPEC GRAVITY 1.010 Normal 1.005-<=1. 025 [facility] Comment on above: Performed By: #### U MICRO, UACSIND #### [facility] [address] [address] [address] Joyce Strauss UA PROTEIN TRACE Normal NEGATIVE/ TRACE [facility] Comment on above: Performed By: #### U MICRO, UACSIND #### [facility] [address] [address] [address] Joyce Strauss UR MICRO IND INDICATED Normal [facility] Comment on above: Performed By: #### U MICRO, UACSIND #### [facility] [address] [address] [address] Joyce Strauss Urobilinogen Qn (U) 0.2 {Cam'U}/dL Normal 0.2 - 1. 0 [facility] Comment on above: Performed By: #### U MICRO, UACSIND #### [facility] [address] [place] [address] Dr. Joyce Strauss URINE MICROSCOPIC ONLYon BACTERIA LARGE Abnormal NONE SEEN [facility] Comment on above: Performed By: #### U MICRO, UACSIND #### [facility] [address] [place] [address] Dr. Joyce Strauss Bacteria identified Cx Nom (U) INDICATED Normal [facility] Comment on above: Performed By: #### U MICRO, UACSIND #### [facility] [address] [place] [address] Dr. Joyce Strauss CA OX CRYSTALS RARE Normal [facility] Comment on above: Performed By: #### U MICRO, UACSIND #### [facility] [address] [place] [address] Dr. Joyce Strauss CAST NONE SEEN Normal NONE SEEN [facility] Comment on above: Performed By: #### U MICRO, UACSIND #### [facility] [address] [place] [address] Dr. Joyce Strauss Crystals LM Nom (Urine sed) SEEN Abnormal NONE SEEN [facility] Comment on above: Performed By: #### U MICRO, UACSIND #### [facility] [address] [place] [address] Dr. Joyce Strauss Epithelial cells LM Ql (Urine sed) FEW Abnormal NONE SEEN /RARE [facility] Comment on above: Performed By: #### U MICRO, UACSIND #### [facility] [address] [place] [address] Dr. Joyce Strauss MUCOUS NONE SEEN Normal NONE SEEN [facility] Comment on above: Performed By: #### U MICRO, UACSIND #### [facility] [address] [place] [address] Dr. Joyce Strauss RBC NONE SEEN Abnormal 0-2 [facility] Comment on above: Performed By: #### U MICRO, UACSIND #### [facility] [address] [place], [place] [address] Dr. Joyce Strauss WBC (U) [#/Vol] /uL Abnormal NONE SEEN The [facility] Comment on above: Performed By: #### U MICRO, UACSIND #### [facility] [address] [address] [address] Joyce Strauss CNOVon 07-08-2022 CNOV Office Visit (NRMDN) -- ALTON BARKER ([id number]) 1940 F Date Time Provider Department 07/08/22 3:00 PM GLORIA PEREZ NRMARIBELL During your visit today, we recorded the following information about you: Weight Height 85.1 kg 1.676 m Gloria Perez APRN.DIGITAL IMAGING SPECIALIST 07/11/2022 5:23 PM Signed [facility] - FOLLOW UP EVALUATION Honey Rabago DO, DO [address] [facility] [address] [facility] [address] Dear Honey Rabago DO, DO: I had [...] She likes the staff. 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 Normal [facility] CULTURE URINEon 06-03-2022 CULTURE URINE Isolate [...] F Trimethoprim/Sulfamethoxaz ole <=20 S F Normal [facility] Comment on above: Performed By: #### U RCX #### [facility] [address] [place] [address] Dr. Joyce Strauss UA RANDOMon 06-01-2022 Bilirubin Ql (U) Negative Normal NEGATIVE [facility] Comment on above: Performed By: #### U A #### [facility] [address] [place] [address] Dr. Joyce Strauss Clarity (U) CLOUDY Abnormal CLEAR [facility] Comment on above: Performed By: #### U A #### [facility] [address] [place] [address] Dr. Joyce Strauss Color (U) YELLOW Normal YELLOW [facility] Comment on above: Performed By: #### U A #### [facility] [address] [place] [address] Dr. Joyce Strauss Glucose Ql (U) Negative Normal NEGATIVE [facility] Comment on above: Performed By: #### U A #### [facility] [address] [place] [address] Dr. Joyce Strauss Hemoglobin Ql (U) MODERATE Abnormal NEGATIVE [facility] Comment on above: Performed By: #### U A #### [facility] [address] [place] [address] Dr. Joyce Strauss Ketones Ql (U) Negative Normal NEGATIVE [facility] Comment on above: Performed By: #### U A #### [facility] [address] [place] [address] Dr. Joyce Strauss LEUKOCYTES LARGE Abnormal NEGATIVE [facility] Comment on above: Performed By: #### U A #### [facility] [address] [place] [address] Dr. Joyce Strauss Nitrite Ql (U) Positive Abnormal NEGATIVE [facility] Comment on above: Performed By: #### U A #### [facility] [address] [place] [address] Dr. Joyce Strauss pH (U) 6.0 [pH] Normal 5-9 [facility] Comment on above: Performed By: #### U A #### [facility] [address] [place] [address] Dr. Joyce Strauss SPEC GRAVITY 1.010 Normal 1.005-<=1. 025 [facility] Comment on above: Performed By: #### U A #### [facility] [address] [address] [address] Joyce Strauss UA PROTEIN 100 mg/dl Abnormal NEGATIVE/ TRACE [facility] Comment on above: Performed By: #### U A #### [facility] [address] [address] [address] Joyce Strauss Urobilinogen Qn (U) 1.0 {Cam'U}/dL Normal 0.2 - 1. 0 [facility] Comment on above: Performed By: #### U A #### [facility] [address] [address] [address] Joyce Strauss Urine culture routineOrdered By: Honey Rabago on 01-01-2022 Bacteria identified Cx Nom (U) Escherichia coli [facility] Automated erythrocytes count in urine sediment (number/area)Ordered By: Honey Rabago on 12-30-2021 RBC Auto (Urine sed) [#/Area] 3-4 [HPF] 0-4 [facility] Automated leukocytes count i n urine sediment (number/area)Ordered By: Honey Rabago on 12-30-2021 WBC Auto (Urine sed) [#/Area] 50-100 [HPF] 0-4 [facility] Automated urine color determ inationOrdered By: Honey Rabago on 12-30-2021 Color (U) Yellow Normal Yellow [facility] Comment on above: Order Comment: Name Collection Type:: Clean-Voided Midstream Performed By: #### G LULS #### Point of Care testing , Bilirubin Test strip Ql (U)O rdered By: Honey Rabago on 12-30-2021 Bilirubin Ql (U) Negative Negative [facility] Dipstick and Microscopicon 1 Appearance (U) Cloudy Critically abnormal Clear [facility] Comment on above: Order Comment: Name Collection Type:: Clean-Voided Midstream Performed By: #### G LULS #### Point of Care testing , Bacteria,Urine 1+ High None Seen [facility] Comment on above: Order Comment: Name Collection Type:: Clean-Voided Midstream Performed By: #### G LULS #### Point of Care testing , Bilirubin,Urine Negative Normal Negative [facility] Comment on above: Order Comment: Name Collection Type:: Clean-Voided Midstream Performed By: #### G LULS #### Point of Care testing , Glucose Ql (U) Normal Normal Normal [facility] Comment on above: Order Comment: Name Collection Type:: Clean-Voided Midstream Performed By: #### G LULS #### Point of Care testing , Hyaline Casts,Urine 0-8 Normal 0-8 [facility] Comment on above: Order Comment: Name Collection Type:: Clean-Voided Midstream Result Comment: PERF ORMED BY: [facility] [address] [place] [address] PATHOLOGIST BOOM CAT OPERATOR FLIP GERMAN M.D. Performed By: #### G LULS #### Point of Care testing , Ketones Ql (U) Negative Normal Negative [facility] Comment on above: Order Comment: Name Collection Type:: Clean-Voided Midstream Performed By: #### G LULS #### Point of Care testing , Leukocyte esterase Test strip Ql (U) 3+ High Negative [facility] Comment on above: Order Comment: Name Collection Type:: Clean-Voided Midstream Performed By: #### G LULS #### Point of Care testing , Nitrite,Urine Positive High Negative [facility] Comment on above: Order Comment: Name Collection Type:: Clean-Voided Midstream Performed By: #### G LULS #### Point of Care testing , Occult Blood,Urine Negative Normal Negative [facility] Comment on above: Order Comment: Name Collection Type:: Clean-Voided Midstream Result Comment: PERF ORMED BY: [facility] [address] [place] [address] PATHOLOGIST BOOM CAT OPERATOR FLIP GERMAN M.D. Performed By: #### G LULS #### Point of Care testing , Othe Crystals,Urine None Seen Normal [facility] Comment on above: Order Comment: Name Collection Type:: Clean-Voided Midstream Performed By: #### G LULS #### Point of Care testing , Protein,Urine Trace High Negative [facility] Comment on above: Order Comment: Name Collection Type:: Clean-Voided Midstream Performed By: #### G LULS #### Point of Care testing , RBC,Urine 3-4 Normal 0-4 [facility] Comment on above: Order Comment: Name Collection Type:: Clean-Voided Midstream Performed By: #### G LULS #### Point of Care testing , Specificy [place],Urine 1.017 Normal 1.001-1.[address] [facility] Comment on above: Order Comment: Name Collection Type:: Clean-Voided Midstream Performed By: #### G LULS #### Point of Care testing , Squamous Epithelial Cell,Urine 1-2 Normal 0-2 [facility] Comment on above: Order Comment: Name Collection Type:: Clean-Voided Midstream Performed By: #### G LULS #### Point of Care testing , Urobilinogen,Urine Normal Normal Normal [facility] Comment on above: Order Comment: Name Collection Type:: Clean-Voided Midstream Performed By: #### G LULS #### Point of Care testing , WBC,Urine 50-100 High 0-4 [facility] Comment on above: Order Comment: Name Collection Type:: Clean-Voided Midstream Performed By: #### G LULS #### Point of Care testing , Ketones Auto test strip (U) [Mass/Vol]Ordered By: Honey Rabago on 12-30-2021 Ketones (U) [Mass/Vol] Negative Negative [facility] Laboratory - UrinalysisOrder ed By: Honey Rabago on 12-30-2021 Hyaline casts LM Ql (Urine sed) 0-8 [LPF] 0-8 [facility] Nitrite Test strip Ql (U)Ord ered By: Honey Rabago on 12-30-2021 Nitrite Ql (U) Positive Negative [facility] Protein Auto test strip (U) [Mass/Vol]Ordered By: Honey Rabago on 12-30-2021 Protein (U) [Mass/Vol] Trace mg/dL Negative [facility] Specific gravity Auto test s trip (U) [Rel density]Ordered By: Honey Rabago on 12-30-2021 Specific gravity (U) [Rel density] 1.017 1.001-1.[address] [facility] Squamous epithelial cells de tection in urine sediment by light microscopyOrdered By: Honey Rabago on 12-30-2021 Epithelial cells.squamous LM Ql (Urine sed) 1-2 [HPF] 0-2 [facility] Urine Cultureon 12-30-2021 Bacteria identified Cx Nom (U) ORGANISM: Escherichia coli (O:ESCCOL) [place] Count >100,000 Aerobic JIMMY Charge (NUC86) SUSCEPTIBILITY [...] EXTENDED SPECTRUM BETA-LACTAMASE TFG = THYMIDINE-DEPENDENT STRAIN ASNDIP = BETA-LACTAMASE POSITIVE IB = INDUCIBLE BETA-LACTAMASE. APPEARS IN PLACE OF 'S' WITH SPECIES KNOWN TO POSSESS INDUCIBLE BETA-LACTAMASES. POTENTIALLY THEY MAY BECOME RESISTANT TO ALL B-LACTAM DRUGS. PERFORMED BY: [address] [place] [address] PATHOLOGIST BOOM CAT OPERATOR FLIP GERMAN M.D. Normal [facility] Comment on above: Performed By: #### G LULS #### Point of Care testing , Urine bacteria detection by automated methodOrdered By: Honey Rabago on 12-30-2021 Bacteria Auto Ql (U) 1+ None Seen [facility] Urine clarity by refractomet ry automatedOrdered By: Honey Rabago on 12-30-2021 Clarity Refractometry automated (U) Cloudy Clear [facility] Urine glucose measurement by automated test strip (mass/volume)Ordered By: Honey Rabago on 12-30-2021 Glucose Auto test strip (U) [Mass/Vol] Normal mg/dL Normal [facility] Urine hemoglobin detection b y automated test stripOrdered By: Honey Rabago on 12-30-2021 Hemoglobin Auto test strip Ql (U) Negative Negative [facility] Urine leukocyte esterase det ection by automated test stripOrdered By: Honey Rabago on 12-30-2021 Leukocyte esterase Auto test strip Ql (U) 3+ Negative [facility] Urine pH measurement by auto mated test stripOrdered By: Honey Rabago on 12-30-2021 pH (U) 8.5 [pH] Normal 5.0-9.0 [facility] Comment on above: Order Comment: Name Collection Type:: Clean-Voided Midstream Performed By: #### G LULS #### Point of Care testing , Urine sediment crystal ident ification by light microscopyOrdered By: Honey Rabago on 12-30-2021 Crystals LM Nom (Urine sed) None seen [HPF] [facility] Urobilinogen Auto test strip (U) [Mass/Vol]Ordered By: Honey Rabago on 12-30-2021 Urobilinogen (U) [Mass/Vol] Normal mg/dL Normal [facility] PROTIMEon 12-21-2021 INR Coag (PPP) [Relative time] 2.34 {INR} Normal [facility] Comment on above: Performed By: #### P T #### [facility] [address] [address] [address] Joyce Strauss INR GUIDELINES SEE BELOW Normal [facility] Comment on above: Result Comment: GUDELIA RED INR: 2.0 - 3.0 CONDITIONS NOT LISTED BELOW 2.5 - 3.5 FOR PROSTHETIC HEART VALVE REPLACEMENT 2.5 - 3.5 RECURRENT THROMBOSIS Performed By: #### P T #### [facility] [address] [place] [address] Dr. Joyce Strauss PT Coag (PPP) [Time] 23.9 s Critically high 9.0-11.6 [facility] Comment on above: Performed By: #### P T #### [facility] [address] [place] [address] Dr. Joyce Strauss PROTIMEon 12-14-2021 INR GUIDELINES SEE BELOW Normal [facility] Comment on above: Result Comment: GUDELIA RED INR: 2.0 - 3.0 CONDITIONS NOT LISTED BELOW 2.5 - 3.5 FOR PROSTHETIC HEART VALVE REPLACEMENT 2.5 - 3.5 RECURRENT THROMBOSIS Performed By: #### P T #### [facility] [address] [place] [address] Dr. Joyce Strauss PT Coag (PPP) [Time] 20.6 s Critically high 9.0-11.6 [facility] Comment on above: Performed By: #### P T #### [facility] [address] [place] [address] Dr. Joyce Strauss Prothrombin Time INRon 12-14 Prothrombin Time INR Nort [employer] Other INR Coag (PPP) [Relative time] 2.00 {INR} Normal [email or web address] Other Comment on above: Performed By: #### P T #### [facility] [address] [place] [address] Dr. Joyce Strauss PROTIMEon 11-30-2021 INR GUIDELINES SEE BELOW Normal [facility] Comment on above: Result Comment: GUDELIA RED INR: 2.0 - 3.0 CONDITIONS NOT LISTED BELOW 2.5 - 3.5 FOR PROSTHETIC HEART VALVE REPLACEMENT 2.5 - 3.5 RECURRENT THROMBOSIS Performed By: #### P T #### [facility] [address] [place] [address] Dr. Joyce Strauss PT Coag (PPP) [Time] 25.9 s Critically high 9.0-11.6 [facility] Comment on above: Performed By: #### P T #### [facility] [address] [place] [address] Dr. Joyce Strauss Prothrombin Time INRon 11-30 Prothrombin Time INR Nort [facility] [employer] Other INR Coag (PPP) [Relative time] 2.55 {INR} Normal [facility] [employer] Other Comment on above: Performed By: #### P T #### [facility] [address] [address] [address] Joyce Strauss Glucose Glucometer (dC) [M ass/Vol]Ordered By: Alcides Moya on 11-25-2021 Glucose [Mass/Vol] 125 mg/dL [facility] Comment on above: Random Glucose Refer ence Range is dependent on time and content of last meal. Glucose of more than 200 mg/dL in a nonstressed, ambulatory subject supports the diagnosis of Diabetes Mellitus. Glucose Poct Glucometerson 0 11-25-2021 Glucose [Mass/Vol] 125 mg/dL Normal [facility] Comment on above: Result Comment: [place] Glucose Reference Range is dependent on time and content of last meal. Glucose of more than 200 mg/dL in a nonstressed, ambulatory subject supports the diagnosis of Diabetes Mellitus. PERFORMED BY: [facility] [address] [place] [address] PATHOLOGIST BOOM CAT OPERATOR FLIP GERMAN M.D. Performed By: #### G LULS #### Point of Care testing , Laboratory - CoagulationOrde red By: Alcides Moya on 11-25-2021 PT Coag (PPP) [Time] 25.5 s 9.0-12.9 [facility] Platelet poor plasma interna tional normalized ratio (INR) by coagulation assay (relatOrdered By: Alcides Moya on 11-25-2021 INR Coag (PPP) [Relative time] 2.2 {INR} [facility] Comment on above: INR Therapeutic [...] Coag (PPP) [Relative time] 2.2 {INR} Normal [facility] Comment on above: Order Comment: [...] heart valves: 3 - 4.5 PERFORMED BY: [address] [place] [address] PATHOLOGIST BOOM CAT OPERATOR FLIP GERMAN M.D. Performed By: #### G LULS #### Point of Care testing , PT Coag (PPP) [Time] 25.5 s High 9.0-12.9 [facility] Comment on above: Order Comment: List the anticoagulant: COUMADIN/WARFARIN Performed By: #### G LULS #### Point of Care testing , Basic Metabolic Panelon 11-12 Anion gap [Moles/Vol] 11.8 mmol/L Normal 6.0-15.0 [facility] Comment on above: Performed By: #### G LULS #### Point of Care testing , Calcium [Mass/Vol] 8.7 mg/dL Normal 8.2-10.2 [facility] Comment on above: Performed By: #### G LULS #### Point of Care testing , Chloride [Moles/Vol] 103 mmol/L Normal 95-114 [facility] Comment on above: Performed By: #### G LULS #### Point of Care testing , CO2 [Moles/Vol] 28.1 mmol/L Normal 22.0-30.0 [facility] Comment on above: Performed By: #### G LULS #### Point of Care testing , Creatinine [Mass/Vol] 0.53 mg/dL Normal 0.44-1.03 [facility] Comment on above: Performed By: #### G LULS #### Point of Care testing , Creatinine Clr Calc Pharmacy 64.37 [facility] Comment on above: Result Comment: PERF ORMED BY: [facility] [address] [place] [address] PATHOLOGIST BOOM CAT OPERATOR FLIP GERMAN M.D. Performed By: #### G LULS #### Point of Care testing , Estimated GFR ( Trista > 60 [facility] Comment on above: Result Comment: GFR estimated reference range: According to KDOQI guidelines, <60 ml/min/1.73m2 is sufficient to diagnose a patient with chronic kidney disease. Performed By: #### G LULS #### Point of Care testing , Estimated GFR (Non- Am > 60 [facility] Comment on above: Performed By: #### G LULS #### Point of Care testing , Glucose [Mass/Vol] 138 mg/dL High 70-100 [facility] Comment on above: Result Comment: [place] om Glucose Reference Range is dependent on time and content of last meal. Glucose of more than 200 mg/dL in a nonstressed, ambulatory subject supports the diagnosis of Diabetes Mellitus. ADA recommended reference range Performed By: #### G LULS #### Point of Care testing , Potassium [Moles/Vol] 3.9 mmol/L Normal 3.5-5.1 [facility] Comment on above: Performed By: #### G LULS #### Point of Care testing , Sodium [Moles/Vol] 139 mmol/L Normal 136-146 [facility] Comment on above: Performed By: #### G LULS #### Point of Care testing , Urea nitrogen [Mass/Vol] 6 mg/dL Low 9-23 [facility] Comment on above: Performed By: #### G LULS #### Point of Care testing , Basophils Auto (Bld) [#/Vol] Ordered By: Elham Mendoza on 11-24-2021 Basophils (Bld) [#/Vol] N/A [facility] Basophils/100 WBC Auto (Bld) Ordered By: Elham Mendoza on 11-24-2021 Basophils/100 WBC (Bld) N/A [facility] Blood anisocytosis detection Ordered By: Elham Mendoza on 11-24-2021 Anisocytosis Ql (Bld) Moderate [facility] Blood hemoglobin measurement (mass/volume)Ordered By: Elham Mendoza on 11-24-2021 Hemoglobin (Bld) [Mass/Vol] 11.4 g/dL 11.8-15.4 [facility] Blood leukocytes automated c ount (number/volume)Ordered By: Elham Mendoza on 11-24-2021 WBC (Bld) [#/Vol] 6.0 10*3/uL 4.5-11.0 [facility] Creatinine and Glomerular fi ltration rate.predicted panel (S/P/Bld)Ordered By: Elham Mendoza on 11-24-2021 Creatinine [Mass/Vol] 0.53 mg/dL 0.44-1.03 [facility] Diff and CBCon 11-24-2021 Anisocytosis Ql (Bld) Moderate Normal [facility] Comment on above: Performed By: #### G LULS #### Point of Care testing , Eosinophils/100 WBC (Bld) 2 % Normal 1-3 [facility] Comment on above: Performed By: #### G GELACIOLS #### Point of Care testing , Erythrocyte distribution width (RBC) [Ratio] 18.4 % High 11.9-15.3 [facility] Comment on above: Performed By: #### G LULS #### Point of Care testing , Hematocrit (Bld) [Volume fraction] 34.9 % Normal 34.0-46.4 [facility] Comment on above: Performed By: #### G LULS #### Point of Care testing , Hemoglobin (Bld) [Mass/Vol] 11.4 g/dL Low 11.8-15.4 [facility] Comment on above: Performed By: #### G GELACIOLS #### Point of Care testing , Lymphocytes/100 WBC (Bld) 35 % Normal 18-42 [facility] Comment on above: Performed By: #### G LULS #### Point of Care testing , MCH (RBC) [Entitic mass] 29.9 pg Normal 24.7-34.3 [facility] Comment on above: Performed By: #### G LULS #### Point of Care testing , MCV (RBC) [Entitic vol] 91.2 fL Normal 80-100 [facility] Comment on above: Performed By: #### G LULS #### Point of Care testing , Mean Corpuscular HGB Conc 32.8 g/dL Normal 32.0-35.0 [facility] Comment on above: Performed By: #### G GELACIOLS #### Point of Care testing , Monocytes/100 WBC (Bld) 7 % Normal 2-11 [facility] Comment on above: Performed By: #### G GELACIOLS #### Point of Care testing , Myelocytes 1 % High 0-0 [facility] Comment on above: Performed By: #### G LULS #### Point of Care testing , Nucleated RBC/100 WBC (Bld) [Ratio] 0.5 % Normal 0-0.5 [facility] Comment on above: Result Comment: PERF ORMED BY: [facility] [address] [place] [address] PATHOLOGIST BOOM CAT OPERATOR FLIP GERMAN M.D. Performed By: #### G LULS #### Point of Care testing , Platelet Estimate Normal Normal Normal [facility] Comment on above: Performed By: #### G LULS #### Point of Care testing , Platelet mean volume (Bld) [Entitic vol] 8.8 fL Normal 6.3-10.7 [facility] Comment on above: Performed By: #### G LULS #### Point of Care testing , Platelet Morphology Normal Normal Normal [facility] Comment on above: Result Comment: PERF ORMED BY: [facility] [place] [address] PATHOLOGIST BOOM CAT OPERATOR FLIP GERMAN M.D. Performed By: #### G LULS #### Point of Care testing , Platelets (Bld) [#/Vol] 285 10*3/uL Normal 150-450 [facility] Comment on above: Performed By: #### G LULS #### Point of Care testing , RBC (Bld) [#/Vol] 3.82 10*6/uL Normal 3.60-5.00 [facility] Comment on above: Performed By: #### G GELACIOLS #### Point of Care testing , Reactive Lymphocytes 1 % Normal 0-12 [facility] Comment on above: Performed By: #### G LULS #### Point of Care testing , Segmented neutrophils/100 WBC (Bld) 54 % Normal 50-70 [facility] Comment on above: Performed By: #### G LULS #### Point of Care testing , WBC (Bld) [#/Vol] 6.0 10*3/uL Normal 4.5-11.0 [facility] Comment on above: Performed By: #### G LULS #### Point of Care testing , Eosinophils Auto (Bld) [#/Vo l]Ordered By: Elham Mendoza on 11-24-2021 Eosinophils (Bld) [#/Vol] N/A [facility] Eosinophils/100 WBC Auto (Bl d)Ordered By: Elham Mendoza on 11-24-2021 Eosinophils/100 WBC (Bld) N/A [facility] Erythrocyte distribution wid th Auto (RBC) [Ratio]Ordered By: Elham Mendoza on 11-24-2021 Erythrocyte distribution width (RBC) [Ratio] 18.4 % 11.9-15.3 [facility] Estimated glomerular filtrat ion rate (GFR) non- AmericanOrdered By: Elham Mendoza on 11-24-2021 GFR/1.73 sq M.predicted among non-blacks MDRD (S/P/Bld) [Vol rate/Area] > 60 mL/Min [facility] Glucose Poct Glucometerson 0 11-24-2021 Glucose [Mass/Vol] 139 mg/dL Normal [facility] Comment on above: Result Comment: [facility] Glucose Reference Range is dependent on time and content of last meal. Glucose of more than 200 mg/dL in a nonstressed, ambulatory subject supports the diagnosis of Diabetes Mellitus. PERFORMED BY: [facility] [place] [address] PATHOLOGIST BOOM CAT OPERATOR FLIP GERMAN M.D. Performed By: #### G LULS #### Point of Care testing , Hematocrit Auto (Bld) [Volum e fraction]Ordered By: Elham Mendoza on 11-24-2021 Hematocrit (Bld) [Volume fraction] 34.9 % 34.0-46.4 [facility] Laboratory - Hematology and Cell countsOrdered By: Elham Mendoza on 11-24-2021 Nucleated RBC/100 WBC (Bld) [Ratio] 0.5 % 0-0.5 [facility] Lymphocytes Auto (Bld) [#/Vo l]Ordered By: Elham Mendoza on 11-24-2021 Lymphocytes (Bld) [#/Vol] N/A [facility] Lymphocytes/100 WBC Auto (Bl d)Ordered By: Elham Mendoza on 11-24-2021 Lymphocytes/100 WBC (Bld) N/A [facility] Lymphocytes/100 WBC (Bld) 35 % 18-42 [facility] Lymphocytes/100 WBC Manual c nt (Bld)Ordered By: Elham Mendoza on 11-24-2021 Lymphocytes/100 WBC (Bld) 1 % 0-12 [facility] MCH Auto (RBC) [Entitic mass ]Ordered By: Elham Mendoza on 11-24-2021 MCH (RBC) [Entitic mass] 29.9 pg 24.7-34.3 [facility] MCHC Auto (RBC) [Mass/Vol]Or dered By: Elham Mendoza on 11-24-2021 MCHC (RBC) [Mass/Vol] 32.8 g/dL 32.0-35.0 [facility] MCV Auto (RBC) [Entitic vol] Ordered By: Elham Mendoza on 11-24-2021 MCV (RBC) [Entitic vol] 91.2 fL 80-100 [facility] Monocyte %Ordered By: Elham Mendoza on 11-24-2021 Monocytes/100 WBC (Bld) 2 % 1-3 [facility] Monocytes Auto (Bld) [#/Vol] Ordered By: Elham Mendoza on 11-24-2021 Monocytes (Bld) [#/Vol] N/A [facility] Monocytes/100 WBC Auto (Bld) Ordered By: Elham Mendoza on 11-24-2021 Monocytes/100 WBC (Bld) N/A [facility] Monocytes/100 WBC Manual cnt (Bld)Ordered By: Elham Mendoza on 11-24-2021 Monocytes/100 WBC (Bld) 7 % 2-11 [facility] Myelocytes/100 WBC Manual cn t (Bld)Ordered By: Elham Mendoza on 11-24-2021 Myelocytes/100 WBC (Bld) 1 % 0-0 [facility] Neutrophils Auto (Bld) [#/Vo l]Ordered By: Elham Mendoza on 11-24-2021 Neutrophils (Bld) [#/Vol] N/A [facility] Neutrophils/100 WBC Auto (Bl d)Ordered By: Elham Mendoza on 11-24-2021 Neutrophils/100 WBC (Bld) N/A [facility] No Panel InformationOrdered By: Elham Mendoza on 11-24-2021 Estimated GFR () > 60 mL/Min [facility] Comment on above: GFR estimated refere nce range: According to KDOQI guidelines, <60 ml/min/1.73m2 is sufficient to diagnose a patient with chronic kidney disease. Pharmacy Creatinine Clearance (Chem 64.37 [facility] Platelet Estimate Normal Normal [facility] Platelet Morphology Comment Normal Normal [facility] Platelet mean volume Auto (B ld) [Entitic vol]Ordered By: Elham Mendoza on 11-24-2021 Platelet mean volume (Bld) [Entitic vol] 8.8 fL 6.3-10.7 [facility] Platelets Auto (Bld) [#/Vol] Ordered By: Elham Mendoza on 11-24-2021 Platelets (Bld) [#/Vol] 285 10*3/uL 150-450 [facility] Prothrombin Time INRon 11-24 INR Coag (PPP) [Relative time] 2.6 {INR} Normal [facility] Comment on above: Order Comment: [...] heart valves: 3 - 4.5 PERFORMED BY: [facility] [address] [place] [id number] PATHOLOGIST BOOM CAT OPERATOR FLIP GERMAN M.D. Performed By: #### P T ####[place] [id number] [place] [id number] [facility] PT Coag (PPP) [Time] 29.3 s High 9.0-12.9 [facility] Comment on above: Order Comment: FIRST SPECIMEN HEMOLYZED Performed By: #### P T ####[place] [id number] [place] [id number] [facility] RBC Auto (Bld) [#/Vol]Ordere d By: Elham Mendoza on 11-24-2021 RBC (Bld) [#/Vol] 3.82 10*6/uL 3.60-5.00 [facility] RBC morphologyOrdered By: Pramod Mendoza on 11-24-2021 RBC morphology finding Nom (Bld) N/A [facility] Segmented neutrophils/100 WB C Manual cnt (Bld)Ordered By: Elham Mendoza on 11-24-2021 Segmented neutrophils/100 WBC (Bld) 54 % 50-70 [facility] Serum or plasma anion gap de terminationOrdered By: Elham Mendoza on 11-24-2021 Anion gap [Moles/Vol] 11.8 mmol/L 6.0-15.0 [facility] Serum or plasma calcium alondra urement (mass/volume)Ordered By: Elham Mendoza on 11-24-2021 Calcium [Mass/Vol] 8.7 mg/dL 8.2-10.2 [facility] Serum or plasma chloride link surement (moles/volume)Ordered By: Elham Mendoza on 11-24-2021 Chloride [Moles/Vol] 103 mmol/L 95-114 [facility] Serum or plasma glucose alondra urement (mass/volume)Ordered By: Elham Mendoza on 11-24-2021 Glucose [Mass/Vol] 138 mg/dL 70-100 [facility] Comment on above: ADA recommended refe rence [...] on 11-24-2021 Potassium [Moles/Vol] 3.9 mmol/L 3.5-5.1 [facility] Serum or plasma sodium measu rement (moles/volume)Ordered By: Elham Mendoza on 11-24-2021 Sodium [Moles/Vol] 139 mmol/L 136-146 [facility] Serum or plasma total carbon dioxide measurement (moles/volume)Ordered By: Elham Mendoza on 11-24-2021 CO2 [Moles/Vol] 28.1 mmol/L 22.0-30.0 [facility] Serum or plasma urea nitroge n measurement (mass/volume)Ordered By: Elham Mendoza on 11-24-2021 Urea nitrogen [Mass/Vol] 6 mg/dL 9-23 [facility] Glucose Poct Glucometerson 0 11-23-2021 Glucose [Mass/Vol] 157 mg/dL Normal [facility] Comment on above: Result Comment: [place] om Glucose Reference Range is dependent on time and content of last meal. Glucose of more than 200 mg/dL in a nonstressed, ambulatory subject supports the diagnosis of Diabetes Mellitus. PERFORMED BY: [address] [place] [address] PATHOLOGIST BOOM CAT OPERATOR FLIP GERMAN M.D. Performed By: #### G LULS #### Point of Care testing , Prothrombin Time INRon 11-23 INR Coag (PPP) [Relative time] 2.9 {INR} Normal [facility] Comment on above: Order Comment: [...] heart valves: 3 - 4.5 PERFORMED BY: [place] [address] [place] [address] PATHOLOGIST BOOM CAT OPERATOR FLIP GERMAN M.D. Performed By: #### G LULS #### Point of Care testing , PT Coag (PPP) [Time] 33.5 s High 9.0-12.9 [facility] Comment on above: Order Comment: List the anticoagulant: COUMADIN/WARFARIN Performed By: #### G LULS #### Point of Care testing , Glucose Poct Glucometerson 0 11-22-2021 Glucose [Mass/Vol] 161 mg/dL Normal [facility] Comment on above: Result Comment: [facility] Glucose Reference Range is dependent on time and content of last meal. Glucose of more than 200 mg/dL in a nonstressed, ambulatory subject supports the diagnosis of Diabetes Mellitus. PERFORMED BY: [place] [address] [place] [address] PATHOLOGIST BOOM CAT OPERATOR FLIP GERMAN M.D. Performed By: #### G LULS #### Point of Care testing , Glucose [Mass/Vol] 112 mg/dL Normal [facility] Comment on above: Result Comment: [facility] Glucose Reference Range is dependent on time and content of last meal. Glucose of more than 200 mg/dL in a nonstressed, ambulatory subject supports the diagnosis of Diabetes Mellitus. PERFORMED BY: [address] [place] [place] [id number] PATHOLOGIST BOOM CAT OPERATOR FLIP GERMAN M.D. Performed By: #### G LULS #### Point of Care testing , Prothrombin Time INRon 11-22 INR Coag (PPP) [Relative time] 2.1 {INR} Normal [facility] Comment on above: Order Comment: [...] heart valves: 3 - 4.5 PERFORMED BY: [address] [place] [id number] PATHOLOGIST BOOM CAT OPERATOR FLIP GERMAN M.D. Performed By: #### G LULS #### Point of Care testing , PT Coag (PPP) [Time] 24.4 s High 9.0-12.9 [facility] Comment on above: Order Comment: List the anticoagulant: COUMADIN/WARFARIN Performed By: #### G LULS #### Point of Care testing , Glucose Poct Glucometerson 0 11-21-2021 Commemt1 Glu2: Cleaned Meter Normal [facility] Comment on above: Result Comment: PERF ORMED BY: [address] [place] [id number] PATHOLOGIST BOOM CAT OPERATOR FLIP GERMAN M.D. Performed By: #### G LULS #### Point of Care testing , Glucose [Mass/Vol] 130 mg/dL Normal [facility] Comment on above: Result Comment: [facility] Glucose Reference Range is dependent on time and content of last meal. Glucose of more than 200 mg/dL in a nonstressed, ambulatory subject supports the diagnosis of Diabetes Mellitus. Performed By: #### G LULS #### Point of Care testing , No Panel InformationOrdered By: Alcides Moya on 11-21-2021 Bedside Glucose Comment Glu2: cleaned meter [facility] Prothrombin Time INRon 11-21 INR Coag (PPP) [Relative time] 1.9 {INR} Normal [facility] Comment on above: Order Comment: [...] heart valves: 3 - 4.5 PERFORMED BY: [address] [place] [address] PATHOLOGIST BOOM CAT OPERATOR FLIP GERMAN M.D. Performed By: #### G LULS #### Point of Care testing , PT Coag (PPP) [Time] 21.8 s High 9.0-12.9 [facility] Comment on above: Order Comment: List the anticoagulant: COUMADIN/WARFARIN Performed By: #### G LULS #### Point of Care testing , Glucose Poct Glucometerson 0 11-20-2021 Commemt1 Glu2: Cleaned Meter [facility] Comment on above: Result Comment: PERF ORMED BY: [facility] [address] [place] [address] PATHOLOGIST BOOM CAT OPERATOR FLIP GERMAN M.D. Performed By: #### G LULS #### Point of Care testing , Glucose [Mass/Vol] 112 mg/dL [facility] Comment on above: Result Comment: [place] Glucose Reference Range is dependent on time and content of last meal. Glucose of more than 200 mg/dL in a nonstressed, ambulatory subject supports the diagnosis of Diabetes Mellitus. Performed By: #### G LULS #### Point of Care testing , Glucose [Mass/Vol] 129 mg/dL Normal [facility] Comment on above: Result Comment: [place] Glucose Reference Range is dependent on time and content of last meal. Glucose of more than 200 mg/dL in a nonstressed, ambulatory subject supports the diagnosis of Diabetes Mellitus. PERFORMED BY: [address] [place] [address] PATHOLOGIST BOOM CAT OPERATOR FLIP GERMAN M.D. Performed By: #### G LULS #### Point of Care testing , Prothrombin Time INRon 11-20 INR Coag (PPP) [Relative time] 2.3 {INR} Normal [facility] Comment on above: Order Comment: [...] heart valves: 3 - 4.5 PERFORMED BY: [address] [place] [address] PATHOLOGIST BOOM CAT OPERATOR FLIP GERMAN M.D. Performed By: #### G LULS #### Point of Care testing , PT Coag (PPP) [Time] 26.6 s High 9.0-12.9 [facility] Comment on above: Order Comment: List the anticoagulant: COUMADIN/WARFARIN Performed By: #### G LULS #### Point of Care testing , CT biopsyOrdered By: Amanda viveros on 11-19-2021 Transferrin [Mass/Vol] 173 mg/dL 180-380 [facility] Glucose Poct Glucometerson 0 11-19-2021 Glucose [Mass/Vol] 122 mg/dL Normal [facility] Comment on above: Result Comment: [place] [facility] Glucose Reference Range is dependent on time and content of last meal. Glucose of more than 200 mg/dL in a nonstressed, ambulatory subject supports the diagnosis of Diabetes Mellitus. PERFORMED BY: [address] [place] [id number] PATHOLOGIST BOOM CAT OPERATOR FLIP GERMAN M.D. Performed By: #### G LULS #### Point of Care testing , Iron [Mass/volume] in Serum or PlasmaOrdered By: Amanda Jaimes on 11-19-2021 Iron [Mass/Vol] 56 ug/dL 40-150 [facility] Iron and TIBC Profileon % Iron Saturation 23.0 % Normal 20-50 [facility] Comment on above: Performed By: #### F E and TIBC ####[place] [address] [place] [address] [facility] Iron [Mass/Vol] 56 ug/dL Normal 40-150 [facility] Comment on above: Performed By: #### F E and TIBC ####[place] [address] [place] [address] [facility] Total Iron Binding Capacity 242 ug/dL Low 255-450 [facility] Comment on above: Performed By: #### F E and TIBC ####[address] [address] [facility] Transferrin [Mass/Vol] 173 mg/dL Low 180-380 [facility] Comment on above: Result Comment: PERF ORMED BY: [facility] [address] [place] [id number] PATHOLOGIST BOOM CAT OPERATOR FLIP GERMAN M.D. Performed By: #### F E and TIBC ####[place] [id number] [facility] Iron binding capacity [Mass/ volume] in Serum or PlasmaOrdered By: Amanda Jaimes on 11-19-2021 Iron binding capacity [Mass/Vol] 242 ug/dL 255-450 [facility] Iron saturation [Mass Fracti on] in Serum or PlasmaOrdered By: Amanda Jaimes on 11-19-2021 Iron saturation [Mass fraction] 23.0 % 20-50 [facility] Prothrombin Time INRon 11-19 INR Coag (PPP) [Relative time] 2.5 {INR} Normal [facility] Comment on above: Order Comment: [...] heart valves: 3 - 4.5 PERFORMED BY: [facility] [address] [place] [id number] PATHOLOGIST BOOM CAT OPERATOR FLIP GERMAN M.D. Performed By: #### P T ####[place] [address] [place] [phone] [facility] PT Coag (PPP) [Time] 28.4 s High 9.0-12.9 [facility] Comment on above: Order Comment: List the anticoagulant: COUMADIN/WARFARIN Performed By: #### P T ####[place] [address] [place] [phone] [facility] Basic Metabolic Panelon 09-0 -2021 Anion gap [Moles/Vol] 12.3 mmol/L Normal 6.0-15.0 [facility] Comment on above: Performed By: #### G LULS #### Point of Care testing , Calcium [Mass/Vol] 8.8 mg/dL Normal 8.2-10.2 [facility] Comment on above: Performed By: #### G LULS #### Point of Care testing , Chloride [Moles/Vol] 101 mmol/L Normal 95-114 [facility] Comment on above: Performed By: #### G LULS #### Point of Care testing , CO2 [Moles/Vol] 30.7 mmol/L High 22.0-30.0 [facility] Comment on above: Performed By: #### G LULS #### Point of Care testing , Creatinine [Mass/Vol] 0.53 mg/dL Normal 0.44-1.03 [facility] Comment on above: Performed By: #### G LULS #### Point of Care testing , Creatinine Clr Calc Pharmacy 64.26 [facility] Comment on above: Result Comment: PERF ORMED BY: [facility] [address] [place] [address] PATHOLOGIST BOOM CAT OPERATOR FLIP GERMAN M.D. Performed By: #### G LULS #### Point of Care testing , Estimated GFR ( Trista > [address] [facility] Comment on above: Result Comment: GFR estimated reference range: According to KDOQI guidelines, <60 ml/min/1.73m2 is sufficient to diagnose a patient with chronic kidney disease. Performed By: #### G LULS #### Point of Care testing , Estimated GFR (Non- Am > [address] [facility] Comment on above: Performed By: #### G LULS #### Point of Care testing , Glucose [Mass/Vol] 131 mg/dL High 70-100 [facility] Comment on above: Result Comment: [place] om Glucose Reference Range is dependent on time and content of last meal. Glucose of more than 200 mg/dL in a nonstressed, ambulatory subject supports the diagnosis of Diabetes Mellitus. ADA recommended reference range Performed By: #### G LULS #### Point of Care testing , Potassium [Moles/Vol] 4.0 mmol/L Normal 3.5-5.1 [facility] Comment on above: Performed By: #### G LULS #### Point of Care testing , Sodium [Moles/Vol] 140 mmol/L Normal 136-146 [facility] Comment on above: Performed By: #### G LULS #### Point of Care testing , Urea nitrogen [Mass/Vol] 8 mg/dL Low 9-23 [facility] Comment on above: Performed By: #### G LULS #### Point of Care testing , Complete Blood Count Auto Di ffon 11-18-2021 Basophils (Bld) [#/Vol] 0.0 10*3/uL Normal 0.0-0.2 [facility] Comment on above: Result Comment: PERF ORMED BY: [facility] [address] [place] [address] PATHOLOGIST BOOM CAT OPERATOR FLIP GERMAN M.D. Performed By: #### G LULS #### Point of Care testing , Basophils/100 WBC (Bld) 0.5 % Normal . [facility] Comment on above: Performed By: #### Charles SOSA #### Point of Care testing , Eosinophils (Bld) [#/Vol] 0.2 10*3/uL Normal 0.0-0.45 [facility] Comment on above: Performed By: #### Charles SOSA #### Point of Care testing , Eosinophils/100 WBC (Bld) 4.0 % Normal . [facility] Comment on above: Performed By: #### Charles BRIZUELALS #### Point of Care testing , Erythrocyte distribution width (RBC) [Ratio] 17.8 % High 11.9-15.3 [facility] Comment on above: Performed By: #### Charles SOSA #### Point of Care testing , Hematocrit (Bld) [Volume fraction] 33.3 % Low 34.0-46.4 [facility] Comment on above: Performed By: #### Charles SOSA #### Point of Care testing , Hemoglobin (Bld) [Mass/Vol] 10.9 g/dL Low 11.8-15.4 [facility] Comment on above: Performed By: #### Charles SOSA #### Point of Care testing , Lymphocytes (Bld) [#/Vol] 2.2 10*3/uL Normal 1.00-4.8 [facility] Comment on above: Performed By: #### Charles SOSA #### Point of Care testing , Lymphocytes/100 WBC (Bld) 40.3 % Normal . [facility] Comment on above: Performed By: #### Charles SOSA #### Point of Care testing , MCH (RBC) [Entitic mass] 29.8 pg Normal 24.7-34.3 [facility] Comment on above: Performed By: #### Charles SOSA #### Point of Care testing , MCV (RBC) [Entitic vol] 91.3 fL Normal 80-100 [facility] Comment on above: Performed By: #### Charles SOSA #### Point of Care testing , Mean Corpuscular HGB Conc 32.6 g/dL Normal 32.0-35.0 [facility] Comment on above: Performed By: #### G IAN #### Point of Care testing , Monocytes (Bld) [#/Vol] 0.7 10*3/uL Normal 0.0-0.8 [facility] Comment on above: Performed By: #### G GELACIOLS #### Point of Care testing , Monocytes/100 WBC (Bld) 12.3 % Normal . [facility] Comment on above: Performed By: #### G GELACIOLS #### Point of Care testing , Neutrophils (Bld) [#/Vol] 2.3 10*3/uL Normal 1.8-7.7 [facility] Comment on above: Performed By: #### G IAN #### Point of Care testing , Neutrophils/100 WBC (Bld) 42.9 % Normal . [facility] Comment on above: Performed By: #### Charles BRIZUELALS #### Point of Care testing , Nucleated RBC/100 WBC (Bld) [Ratio] 0.1 % Normal 0-0.5 [facility] Comment on above: Performed By: #### Charles SOSA #### Point of Care testing , Platelet mean volume (Bld) [Entitic vol] 8.5 fL Normal 6.3-10.7 [facility] Comment on above: Performed By: #### G IAN #### Point of Care testing , Platelets (Bld) [#/Vol] 224 10*3/uL Normal 150-450 [facility] Comment on above: Performed By: #### G IAN #### Point of Care testing , RBC (Bld) [#/Vol] 3.65 10*6/uL Normal 3.60-5.00 [facility] [place] Comment on above: Performed By: #### G IAN #### Point of Care testing , WBC (Bld) [#/Vol] 5.5 10*3/uL Normal 4.5-11.0 [facility] Comment on above: Performed By: #### G IAN #### Point of Care testing , Glucose Poct Glucometerson 0 11-18-2021 Glucose [Mass/Vol] 134 mg/dL Normal [facility] Comment on above: Result Comment: [facility] Glucose Reference Range is dependent on time and content of last meal. Glucose of more than 200 mg/dL in a nonstressed, ambulatory subject supports the diagnosis of Diabetes Mellitus. PERFORMED BY: [facility] [address] [place] [address] PATHOLOGIST BOOM CAT OPERATOR FLIP GERMAN M.D. Performed By: #### G LULS #### Point of Care testing , Prothrombin Time INRon 11-18 INR Coag (PPP) [Relative time] 2.5 {INR} Normal [facility] Comment on above: Order Comment: [...] heart valves: 3 - 4.5 PERFORMED BY: [address] [place] [address] PATHOLOGIST BOOM CAT OPERATOR FLIP GERMAN M.D. Performed By: #### G LULS #### Point of Care testing , PT Coag (PPP) [Time] 28.3 s High 9.0-12.9 [facility] Comment on above: Order Comment: List the anticoagulant: COUMADIN/WARFARIN Performed By: #### G LULS #### Point of Care testing , Glucose Poct Glucometerson 0 11-17-2021 Glucose [Mass/Vol] 124 mg/dL Normal [facility] Comment on above: Result Comment: [facility] Glucose Reference Range is dependent on time and content of last meal. Glucose of more than 200 mg/dL in a nonstressed, ambulatory subject supports the diagnosis of Diabetes Mellitus. PERFORMED BY: [facility] [address] [place] [address] PATHOLOGIST BOOM CAT OPERATOR FLIP GERMAN M.D. Performed By: #### G LULS #### Point of Care testing , Prothrombin Time INRon 11-17 INR Coag (PPP) [Relative time] 2.7 {INR} Normal [facility] Comment on above: Order Comment: [...] heart valves: 3 - 4.5 PERFORMED BY: [facility] [address] [place] [address] PATHOLOGIST BOOM CAT OPERATOR FLIP GERMAN M.D. Performed By: #### P T ####[place] [id number] [facility] PT Coag (PPP) [Time] 30.8 s High 9.0-12.9 [facility] Comment on above: Order Comment: List the anticoagulant: COUMADIN/WARFARIN Performed By: #### P T ####[place] [id number] [facility] Glucose Poct Glucometerson 0 11-16-2021 Commemt1 Glu2: Cleaned Meter [facility] Comment on above: Result Comment: PERF ORMED BY: [facility] [address] [place] [id number] PATHOLOGIST BOOM CAT OPERATOR FLIP GERMAN M.D. Performed By: #### G LULS #### Point of Care testing , Glucose [Mass/Vol] 125 mg/dL Normal [facility] Comment on above: Result Comment: [facility] Glucose Reference Range is dependent on time and content of last meal. Glucose of more than 200 mg/dL in a nonstressed, ambulatory subject supports the diagnosis of Diabetes Mellitus. Performed By: #### G LULS #### Point of Care testing , Prothrombin Time INRon 11-16 INR Coag (PPP) [Relative time] 2.9 {INR} Normal [facility] Comment on above: Order Comment: [...] heart valves: 3 - 4.5 PERFORMED BY: [address] [place] [address] PATHOLOGIST BOOM CAT OPERATOR FLIP GERMAN M.D. Performed By: #### G LULS #### Point of Care testing , PT Coag (PPP) [Time] 32.9 s High 9.0-12.9 [facility] Comment on above: Order Comment: List the anticoagulant: COUMADIN/WARFARIN Performed By: #### G LULS #### Point of Care testing , Glucose Poct Glucometerson 0 11-15-2021 Glucose [Mass/Vol] 145 mg/dL Normal [facility] Comment on above: Result Comment: [place] [facility] Glucose Reference Range is dependent on time and content of last meal. Glucose of more than 200 mg/dL in a nonstressed, ambulatory subject supports the diagnosis of Diabetes Mellitus. PERFORMED BY: [address] [place] [address] PATHOLOGIST BOOM CAT OPERATOR FLIP GERMAN M.D. Performed By: #### G LULS #### Point of Care testing , Commemt1 Glu2: Cleaned Meter Normal [facility] Comment on above: Result Comment: PERF ORMED BY: [address] [place] [address] PATHOLOGIST BOOM CAT OPERATOR FLIP GERMAN M.D. Performed By: #### G LULS #### Point of Care testing , Glucose [Mass/Vol] 131 mg/dL Normal [facility] Comment on above: Result Comment: [place] [facility] Glucose Reference Range is dependent on time and content of last meal. Glucose of more than 200 mg/dL in a nonstressed, ambulatory subject supports the diagnosis of Diabetes Mellitus. Performed By: #### G LULS #### Point of Care testing , Commemt1 Glu2: Cleaned Meter [facility] Comment on above: Result Comment: PERF ORMED BY: [address] [place] [id number] PATHOLOGIST BOOM CAT OPERATOR FLIP GERMAN M.D. Performed By: #### G LULS #### Point of Care testing , Glucose [Mass/Vol] 201 mg/dL Normal [facility] Comment on above: Result Comment: [place] [facility] Glucose Reference Range is dependent on time and content of last meal. Glucose of more than 200 mg/dL in a nonstressed, ambulatory subject supports the diagnosis of Diabetes Mellitus. Performed By: #### G LULS #### Point of Care testing , Commemt1 Glu2: Cleaned Meter Normal [facility] Comment on above: Result Comment: PERF ORMED BY: [address] [place] [id number] PATHOLOGIST BOOM CAT OPERATOR FLIP GERMAN M.D. Performed By: #### G LULS #### Point of Care testing , Glucose [Mass/Vol] 184 mg/dL Normal [facility] Comment on above: Result Comment: [place] om Glucose Reference Range is dependent on time and content of last meal. Glucose of more than 200 mg/dL in a nonstressed, ambulatory subject supports the diagnosis of Diabetes Mellitus. Performed By: #### G LULS #### Point of Care testing , Prothrombin Time INRon 11-15 INR Coag (PPP) [Relative time] 2.4 {INR} Normal [facility] Comment on above: Order Comment: [...] heart valves: 3 - 4.5 PERFORMED BY: [address] [place] [id number] PATHOLOGIST BOOM CAT OPERATOR FLIP GERMAN M.D. Performed By: #### G LULS #### Point of Care testing , PT Coag (PPP) [Time] 27.8 s High 9.0-12.9 [facility] Comment on above: Order Comment: List the anticoagulant: COUMADIN/WARFARIN Performed By: #### G LULS #### Point of Care testing , Glucose Poct Glucometerson 0 11-14-2021 Commemt1 Glu2: Cleaned Meter Normal [facility] Comment on above: Result Comment: PERF ORMED BY: [facility] [address] [place] [address] PATHOLOGIST BOOM CAT OPERATOR FLIP GERMAN M.D. Performed By: #### G LULS #### Point of Care testing , Glucose [Mass/Vol] 152 mg/dL Normal [facility] Comment on above: Result Comment: [facility] Glucose Reference Range is dependent on time and content of last meal. Glucose of more than 200 mg/dL in a nonstressed, ambulatory subject supports the diagnosis of Diabetes Mellitus. Performed By: #### G LULS #### Point of Care testing , Glucose [Mass/Vol] 179 mg/dL Normal [facility] Comment on above: Result Comment: [facility] Glucose Reference Range is dependent on time and content of last meal. Glucose of more than 200 mg/dL in a nonstressed, ambulatory subject supports the diagnosis of Diabetes Mellitus. PERFORMED BY: [facility] [address] [place] [address] PATHOLOGIST BOOM CAT OPERATOR FLIP GERMAN M.D. Performed By: #### G LULS #### Point of Care testing , Glucose [Mass/Vol] 211 mg/dL Normal [facility] Comment on above: Result Comment: [facility] Glucose Reference Range is dependent on time and content of last meal. Glucose of more than 200 mg/dL in a nonstressed, ambulatory subject supports the diagnosis of Diabetes Mellitus. PERFORMED BY: [address] [place] [address] PATHOLOGIST BOOM CAT OPERATOR FLIP GERMAN M.D. Performed By: #### G LULS #### Point of Care testing , Glucose [Mass/Vol] 184 mg/dL Normal [facility] Comment on above: Result Comment: [place] Glucose Reference Range is dependent on time and content of last meal. Glucose of more than 200 mg/dL in a nonstressed, ambulatory subject supports the diagnosis of Diabetes Mellitus. PERFORMED BY: [facility] [address] [place] [address] PATHOLOGIST BOOM CAT OPERATOR FLIP GERMAN M.D. Performed By: #### G LULS #### Point of Care testing , Prothrombin Time INRon 11-14 INR Coag (PPP) [Relative time] 2.2 {INR} Normal [facility] Comment on above: Order Comment: [...] heart valves: 3 - 4.5 PERFORMED BY: [facility] [address] [place] [address] PATHOLOGIST BOOM CAT OPERATOR FLIP GERMAN M.D. Performed By: #### G LULS #### Point of Care testing , PT Coag (PPP) [Time] 25.7 s High 9.0-12.9 [facility] Comment on above: Order Comment: List the anticoagulant: COUMADIN/WARFARIN Performed By: #### G LULS #### Point of Care testing , Glucose Glucometer (BldC) [M ass/Vol]Ordered By: Alcides Moya on 11-13-2021 Glucose [Mass/Vol] 146 mg/dL [facility] Comment on above: Random Glucose Refer ence Range is dependent on time and content of last meal. Glucose of more than 200 mg/dL in a nonstressed, ambulatory subject supports the diagnosis of Diabetes Mellitus. Glucose Poct Glucometerson 0 11-13-2021 Glucose [Mass/Vol] 146 mg/dL Normal [facility] Comment on above: Result Comment: [place] [facility] Glucose Reference Range is dependent on time and content of last meal. Glucose of more than 200 mg/dL in a nonstressed, ambulatory subject supports the diagnosis of Diabetes Mellitus. PERFORMED BY: [address] [place] [address] PATHOLOGIST BOOM CAT OPERATOR FLIP GERMAN M.D. Performed By: #### G LULS ####Point of Care testing, Commemt1 Glu2: Cleaned Meter [facility] Comment on above: Result Comment: PERF ORMED BY: [address] [place] [address] PATHOLOGIST BOOM CAT OPERATOR FLIP GERMAN M.D. Performed By: #### G LULS ####Point of Care testing, Glucose [Mass/Vol] 128 mg/dL Normal [facility] Comment on above: Result Comment: [place] [facility] Glucose Reference Range is dependent on time and content of last meal. Glucose of more than 200 mg/dL in a nonstressed, ambulatory subject supports the diagnosis of Diabetes Mellitus. Performed By: #### G LULS ####Point of Care testing, Commemt1 Glu2: Cleaned Meter [facility] Comment on above: Result Comment: PERF ORMED BY: [address] [place] [address] PATHOLOGIST BOOM CAT OPERATOR FLIP GERMAN M.D. Performed By: #### G LULS #### Point of Care testing , Glucose [Mass/Vol] 145 mg/dL Normal [facility] Comment on above: Result Comment: [place] [facility] Glucose Reference Range is dependent on time and content of last meal. Glucose of more than 200 mg/dL in a nonstressed, ambulatory subject supports the diagnosis of Diabetes Mellitus. Performed By: #### G LULS #### Point of Care testing , Commemt1 Glu2: Cleaned Meter [facility] Comment on above: Result Comment: PERF ORMED BY: [address] [place] [id number] PATHOLOGIST BOOM CAT OPERATOR FLIP GERMAN M.D. Performed By: #### G LULS #### Point of Care testing , Glucose [Mass/Vol] 122 mg/dL Normal [facility] Comment on above: Result Comment: [place] [facility] Glucose Reference Range is dependent on time and content of last meal. Glucose of more than 200 mg/dL in a nonstressed, ambulatory subject supports the diagnosis of Diabetes Mellitus. Performed By: #### G LULS #### Point of Care testing , Glucose [Mass/Vol] 116 mg/dL Normal [facility] Comment on above: Result Comment: [place] om Glucose Reference Range is dependent on time and content of last meal. Glucose of more than 200 mg/dL in a nonstressed, ambulatory subject supports the diagnosis of Diabetes Mellitus. PERFORMED BY: [facility] [address] [place] [address] PATHOLOGIST BOOM CAT OPERATOR FLIP GERMAN M.D. Performed By: #### G LULS ####Point of Care testing, No Panel InformationOrdered By: Alcides Moya on 11-13-2021 Bedside Glucose Comment Glu2: cleaned meter [facility] Platelet poor plasma interna tional normalized ratio (INR) by coagulation assay (relatOrdered By: Alcides Moya on 11-13-2021 INR Coag (PPP) [Relative time] 2.6 {INR} Normal [facility] Comment on above: INR Therapeutic [...] heart valves: 3 - 4.5 PERFORMED BY: [facility] [address] [place] [id number] PATHOLOGIST BOOM CAT OPERATOR FLIP GERMAN M.D. Performed By: #### P T ####[facility] [place] [address] [facility] Prothrombin Time INROrdered By: Alcides Moya on 11-13-2021 PT Coag (PPP) [Time] 29.5 s High 9.0-12.9 [facility] Comment on above: Order Comment: List the anticoagulant: COUMADIN/WARFARIN Performed By: #### P T ####[place] [id number] [place] [id number] [facility] Albumin [Mass/volume] in Ser um or PlasmaOrdered By: Alcides Moya on 11-12-2021 Albumin [Mass/Vol] 3.1 g/dL 3.2-5.5 [facility] Basophils Auto (Bld) [#/Vol] Ordered By: Alcides Moya on 11-12-2021 Basophils (Bld) [#/Vol] 0.0 10*3/uL 0.0-0.2 [facility] Basophils/100 WBC Auto (Bld) Ordered By: Alcides Moya on 11-12-2021 Basophils/100 WBC (Bld) 0.5 % . [facility] Blood hemoglobin measurement (mass/volume)Ordered By: Alcides Moya on 11-12-2021 Hemoglobin (Bld) [Mass/Vol] 12.5 g/dL 11.8-15.4 [facility] Blood leukocytes automated c ount (number/volume)Ordered By: Alcides Moya on 11-12-2021 WBC (Bld) [#/Vol] 5.0 10*3/uL 4.5-11.0 [facility] Complete Blood Count Auto Di ffon 11-12-2021 Basophils (Bld) [#/Vol] 0.0 10*3/uL Normal 0.0-0.2 [facility] Comment on above: Result Comment: PERF ORMED BY: [facility] [address] [place] [address] PATHOLOGIST BOOM CAT OPERATOR FLIP GERMAN M.D. Performed By: #### G GELACIOLS #### Point of Care testing , Basophils/100 WBC (Bld) 0.5 % Normal . [facility] Comment on above: Performed By: #### G GELACIOLS #### Point of Care testing , Eosinophils (Bld) [#/Vol] 0.2 10*3/uL Normal 0.0-0.45 [facility] Comment on above: Performed By: #### G GELACIOLS #### Point of Care testing , Eosinophils/100 WBC (Bld) 3.8 % Normal . [facility] Comment on above: Performed By: #### G GELACIOLS #### Point of Care testing , Erythrocyte distribution width (RBC) [Ratio] 17.3 % High 11.9-15.3 [facility] Comment on above: Performed By: #### G GELACIOLS #### Point of Care testing , Hematocrit (Bld) [Volume fraction] 38.9 % Normal 34.0-46.4 [facility] Comment on above: Performed By: #### G GELACIOLS #### Point of Care testing , Hemoglobin (Bld) [Mass/Vol] 12.5 g/dL Normal 11.8-15.4 [facility] Comment on above: Performed By: #### G GELACIOLS #### Point of Care testing , Lymphocytes (Bld) [#/Vol] 2.0 10*3/uL Normal 1.00-4.8 [facility] Comment on above: Performed By: #### G GELACIOLS #### Point of Care testing , Lymphocytes/100 WBC (Bld) 39.7 % Normal . [facility] Comment on above: Performed By: #### G GELACIOLS #### Point of Care testing , MCH (RBC) [Entitic mass] 29.2 pg Normal 24.7-34.3 [facility] Comment on above: Performed By: #### G GELACIOLS #### Point of Care testing , MCV (RBC) [Entitic vol] 90.6 fL Normal 80-100 [facility] Comment on above: Performed By: #### G GELACIOLS #### Point of Care testing , Mean Corpuscular HGB Conc 32.2 g/dL Normal 32.0-35.0 [facility] Comment on above: Performed By: #### Charles SOSA #### Point of Care testing , Monocytes (Bld) [#/Vol] 0.5 10*3/uL Normal 0.0-0.8 [facility] Comment on above: Performed By: #### Charles SOSA #### Point of Care testing , Monocytes/100 WBC (Bld) 10.1 % Normal . [facility] Comment on above: Performed By: #### Charles SOSA #### Point of Care testing , Neutrophils (Bld) [#/Vol] 2.3 10*3/uL Normal 1.8-7.7 [facility] Comment on above: Performed By: #### Charles SOSA #### Point of Care testing , Neutrophils/100 WBC (Bld) 45.9 % Normal . [facility] Comment on above: Performed By: #### Charles BRIZUELALS #### Point of Care testing , Nucleated RBC/100 WBC (Bld) [Ratio] 0.0 % Normal 0-0.5 [facility] Comment on above: Performed By: #### Charles SOSA #### Point of Care testing , Platelet mean volume (Bld) [Entitic vol] 8.6 fL Normal 6.3-10.7 [facility] Comment on above: Performed By: #### Charles SOSA #### Point of Care testing , Platelets (Bld) [#/Vol] 241 10*3/uL Normal 150-450 [facility] Comment on above: Performed By: #### Charles SOSA #### Point of Care testing , RBC (Bld) [#/Vol] 4.29 10*6/uL Normal 3.60-5.00 [facility] [place] Comment on above: Performed By: #### Charles SOSA #### Point of Care testing , WBC (Bld) [#/Vol] 5.0 10*3/uL Normal 4.5-11.0 [facility] Comment on above: Performed By: #### G LULS #### Point of Care testing , Comprehensive Metabolic Pane loco 11-12-2021 Albumin [Mass/Vol] 3.1 g/dL Low 3.2-5.5 [facility] Comment on above: Performed By: #### G GELACIOLS #### Point of Care testing , Albumin/Globulin [Mass ratio] 0.8 {ratio} Normal [facility] Comment on above: Performed By: #### Charles BRIZUELALS #### Point of Care testing , ALP [Catalytic activity/Vol] 84 U/L Normal 32-92 [facility] Comment on above: Performed By: #### Charles SOSA #### Point of Care testing , ALT [Catalytic activity/Vol] 13 U/L Normal 10-60 [facility] Comment on above: Performed By: #### Charles SOSA #### Point of Care testing , Anion gap [Moles/Vol] 11.9 mmol/L Normal 6.0-15.0 [facility] Comment on above: Performed By: #### Charles BRIZUELALS #### Point of Care testing , AST [Catalytic activity/Vol] 22 U/L Normal 10-42 [facility] Comment on above: Performed By: #### Charles SOSA #### Point of Care testing , Bilirubin [Mass/Vol] 0.8 mg/dL Normal 0.3-1.2 [facility] Comment on above: Performed By: #### Charles SOSA #### Point of Care testing , Calcium [Mass/Vol] 9.2 mg/dL Normal 8.2-10.2 [facility] Comment on above: Performed By: #### Charles SOSA #### Point of Care testing , Chloride [Moles/Vol] 100 mmol/L Normal 95-114 [facility] Comment on above: Performed By: #### Charles SOSA #### Point of Care testing , CO2 [Moles/Vol] 31.0 mmol/L High 22.0-30.0 [facility] Comment on above: Performed By: #### Charles SOSA #### Point of Care testing , Creatinine [Mass/Vol] 0.55 mg/dL Normal 0.44-1.03 [facility] Comment on above: Performed By: #### G LULS #### Point of Care testing , Creatinine Clr Calc Pharmacy 64.44 [facility] Comment on above: Performed By: #### G LULS #### Point of Care testing , Estimated GFR ( Trista > 60 [facility] Comment on above: Result Comment: GFR estimated reference range: According to KDOQI guidelines, <60 ml/min/1.73m2 is sufficient to diagnose a patient with chronic kidney disease. Performed By: #### G LULS #### Point of Care testing , Estimated GFR (Non- Am > 60 [facility] Comment on above: Performed By: #### G LULS #### Point of Care testing , Globulin (S) [Mass/Vol] 3.7 g/dL [facility] Comment on above: Performed By: #### G LULS #### Point of Care testing , Glucose [Mass/Vol] 130 mg/dL High 70-100 [facility] Comment on above: Result Comment: [place] Glucose Reference Range is dependent on time and content of last meal. Glucose of more than 200 mg/dL in a nonstressed, ambulatory subject supports the diagnosis of Diabetes Mellitus. ADA recommended reference range Performed By: #### G LULS #### Point of Care testing , Potassium [Moles/Vol] 3.9 mmol/L Normal 3.5-5.1 [facility] Comment on above: Performed By: #### G LULS #### Point of Care testing , Protein [Mass/Vol] 6.8 g/dL Normal 6.1-7.9 [facility] Comment on above: Performed By: #### G GELACIOLS #### Point of Care testing , Sodium [Moles/Vol] 139 mmol/L Normal 136-146 [facility] Comment on above: Performed By: #### G LULS #### Point of Care testing , Urea nitrogen [Mass/Vol] 8 mg/dL Low 9-23 [facility] Comment on above: Performed By: #### G LULS #### Point of Care testing , Creatinine and Glomerular fi ltration rate.predicted panel (S/P/Bld)Ordered By: Alcides Moya on 11-12-2021 Creatinine [Mass/Vol] 0.55 mg/dL 0.44-1.03 [facility] Eosinophils Auto (Bld) [#/Vo l]Ordered By: Alcides Moya on 11-12-2021 Eosinophils (Bld) [#/Vol] 0.2 10*3/uL 0.0-0.45 [facility] Eosinophils/100 WBC Auto (Bl d)Ordered By: Alcides Moya on 11-12-2021 Eosinophils/100 WBC (Bld) 3.8 % . [facility] Erythrocyte distribution wid th Auto (RBC) [Ratio]Ordered By: Alcides Moya on 11-12-2021 Erythrocyte distribution width (RBC) [Ratio] 17.3 % 11.9-15.3 [facility] Estimated glomerular filtrat ion rate (GFR) non- AmericanOrdered By: Alcides Moya on 11-12-2021 GFR/1.73 sq M.predicted among non-blacks MDRD (S/P/Bld) [Vol rate/Area] > 60 mL/Min [facility] Globulin Calc (S) [Mass/Vol] Ordered By: Alcides Moya on 11-12-2021 Globulin (S) [Mass/Vol] 3.7 g/dL [facility] Glucose Glucometer (BldC) [M ass/Vol]Ordered By: Alcides Moya on 11-12-2021 Glucose [Mass/Vol] 212 mg/dL [facility] Comment on above: Random Glucose Refer ence Range is dependent on time and content of last meal. Glucose of more than 200 mg/dL in a nonstressed, ambulatory subject supports the diagnosis of Diabetes Mellitus. Glucose Poct Glucometerson 0 11-12-2021 Glucose [Mass/Vol] 212 mg/dL Normal [facility] Comment on above: Result Comment: [place] Glucose Reference Range is dependent on time and content of last meal. Glucose of more than 200 mg/dL in a nonstressed, ambulatory subject supports the diagnosis of Diabetes Mellitus. PERFORMED BY: [place] [address] [place] [address] PATHOLOGIST BOOM CAT OPERATOR FLIP GERMAN M.D. Performed By: #### G LULS #### Point of Care testing , Glucose [Mass/Vol] 293 mg/dL Normal [facility] Comment on above: Result Comment: [place] om Glucose Reference Range is dependent on time and content of last meal. Glucose of more than 200 mg/dL in a nonstressed, ambulatory subject supports the diagnosis of Diabetes Mellitus. PERFORMED BY: [address] [place] [address] PATHOLOGIST BOOM CAT OPERATOR FLIP GERMAN M.D. Performed By: #### G LULS #### Point of Care testing , Commemt1 Glu2: Cleaned Meter [facility] Comment on above: Result Comment: PERF ORMED BY: [address] [place] [address] PATHOLOGIST BOOM CAT OPERATOR FLIP GERMAN M.D. Performed By: #### G LULS #### Point of Care testing , Glucose [Mass/Vol] 204 mg/dL Normal [facility] Comment on above: Result Comment: [place] om Glucose Reference Range is dependent on time and content of last meal. Glucose of more than 200 mg/dL in a nonstressed, ambulatory subject supports the diagnosis of Diabetes Mellitus. Performed By: #### G LULS #### Point of Care testing , Commemt1 Glu2: Cleaned Meter [facility] Comment on above: Result Comment: PERF ORMED BY: [address] [place] [id number] PATHOLOGIST BOOM CAT OPERATOR FLIP GERMAN M.D. Performed By: #### G LULS #### Point of Care testing , Glucose [Mass/Vol] 188 mg/dL Normal [facility] Comment on above: Result Comment: [place] om Glucose Reference Range is dependent on time and content of last meal. Glucose of more than 200 mg/dL in a nonstressed, ambulatory subject supports the diagnosis of Diabetes Mellitus. Performed By: #### G LULS #### Point of Care testing , Hematocrit Auto (Bld) [Volum e fraction]Ordered By: Alcides Moya on 11-12-2021 Hematocrit (Bld) [Volume fraction] 38.9 % 34.0-46.4 [facility] Laboratory - CoagulationOrde red By: Alcides Moya on 11-12-2021 PT Coag (PPP) [Time] 34.1 s 9.0-12.9 [facility] Laboratory - Hematology and Cell countsOrdered By: Alcides Moya on 11-12-2021 Nucleated RBC/100 WBC (Bld) [Ratio] 0.0 % 0-0.5 [facility] Lymphocytes Auto (Bld) [#/Vo l]Ordered By: Alcides Moya on 11-12-2021 Lymphocytes (Bld) [#/Vol] 2.0 10*3/uL 1.00-4.8 [facility] Lymphocytes/100 WBC Auto (Bl d)Ordered By: Alcides Moya on 11-12-2021 Lymphocytes/100 WBC (Bld) 39.7 % . [facility] MCH Auto (RBC) [Entitic mass ]Ordered By: Alcides Moya on 11-12-2021 MCH (RBC) [Entitic mass] 29.2 pg 24.7-34.3 [facility] MCHC Auto (RBC) [Mass/Vol]Or dered By: Alcides Moya on 11-12-2021 MCHC (RBC) [Mass/Vol] 32.2 g/dL 32.0-35.0 [facility] MCV Auto (RBC) [Entitic vol] Ordered By: Alcides Moya on 11-12-2021 MCV (RBC) [Entitic vol] 90.6 fL 80-100 [facility] Monocytes Auto (Bld) [#/Vol] Ordered By: Alcides Moya on 11-12-2021 Monocytes (Bld) [#/Vol] 0.5 10*3/uL 0.0-0.8 [facility] Monocytes/100 WBC Auto (Bld) Ordered By: Alcides Moya on 11-12-2021 Monocytes/100 WBC (Bld) 10.1 % . [facility] Neutrophils Auto (Bld) [#/Vo l]Ordered By: Alcides Moya on 11-12-2021 Neutrophils (Bld) [#/Vol] 2.3 10*3/uL 1.8-7.7 [facility] Neutrophils/100 WBC Auto (Bl d)Ordered By: Alcides Moya on 11-12-2021 Neutrophils/100 WBC (Bld) 45.9 % . [facility] No Panel InformationOrdered By: Alcides Moya on 11-12-2021 Bedside Glucose Comment Glu2: cleaned meter [facility] Estimated GFR () > 60 mL/Min [facility] Comment on above: GFR estimated refere nce range: According to KDOQI guidelines, <60 ml/min/1.73m2 is sufficient to diagnose a patient with chronic kidney disease. Pharmacy Creatinine Clearance (Chem 64.44 [facility] Platelet mean volume Auto (B ld) [Entitic vol]Ordered By: Alcides Moya on 11-12-2021 Platelet mean volume (Bld) [Entitic vol] 8.6 fL 6.3-10.7 [facility] Platelet poor plasma interna tional normalized ratio (INR) by coagulation assay (relatOrdered By: Alcides Moya on 11-12-2021 INR Coag (PPP) [Relative time] 3.0 {INR} [facility] Comment on above: INR Therapeutic [...] 11-12-2021 Platelets (Bld) [#/Vol] 241 10*3/uL 150-450 [facility] Prealbuminon 11-12-2021 Prealbumin [Mass/Vol] 21.7 mg/dL Normal 18.0-38.0 [facility] Comment on above: Result Comment: PERF ORMED BY: [facility] [address] [place] [address] PATHOLOGIST BOOM CAT OPERATOR FLIP GERMAN M.D. Performed By: #### G LULS #### Point of Care testing , Protein [Mass/volume] in Ser um or PlasmaOrdered By: Alcides Moya on 11-12-2021 Protein [Mass/Vol] 6.8 g/dL 6.1-7.9 [facility] Prothrombin Time INRon 11-12 INR Coag (PPP) [Relative time] 3.0 {INR} Normal [facility] Comment on above: Order Comment: [...] heart valves: 3 - 4.5 PERFORMED BY: [place] [address] [place] [address] PATHOLOGIST BOOM CAT OPERATOR FLIP GERMAN M.D. Performed By: #### G IAN #### Point of Care testing , PT Coag (PPP) [Time] 34.1 s High 9.0-12.9 [facility] Comment on above: Order Comment: List the anticoagulant: COUMADIN/WARFARIN Performed By: #### G IAN #### Point of Care testing , RBC Auto (Bld) [#/Vol]Ordere d By: Alcides Moya on 11-12-2021 RBC (Bld) [#/Vol] 4.29 10*6/uL 3.60-5.00 [facility] Serum or plasma alanine engel otransferase measurement without P-5'-P (enzymatic activiOrdered By: Alcides Moya on 11-12-2021 ALT No additional P-5'-P [Catalytic activity/Vol] 13 U/L 10-60 [facility] Serum or plasma albumin/glob ulin mass ratioOrdered By: Alcides Moya on 11-12-2021 Albumin/Globulin [Mass ratio] 0.8 {ratio} [facility] Serum or plasma alkaline bouchra sphatase measurement (enzymatic activity/volume)Ordered By: Alcides Moya on 11-12-2021 ALP [Catalytic activity/Vol] 84 U/L 32-92 [facility] Serum or plasma anion gap de terminationOrdered By: Alcides Moya on 11-12-2021 Anion gap [Moles/Vol] 11.9 mmol/L 6.0-15.0 [facility] Serum or plasma aspartate am inotransferase measurement (enzymatic activity/volume)Ordered By: Alcides Moya on 11-12-2021 AST [Catalytic activity/Vol] 22 U/L 10-42 [facility] Serum or plasma calcium alondra urement (mass/volume)Ordered By: Alcdies Moya on 11-12-2021 Calcium [Mass/Vol] 9.2 mg/dL 8.2-10.2 [facility] Serum or plasma chloride link surement (moles/volume)Ordered By: Alcides Moya on 11-12-2021 Chloride [Moles/Vol] 100 mmol/L 95-114 [facility] Serum or plasma glucose alondra urement (mass/volume)Ordered By: Alcides Moya on 11-12-2021 Glucose [Mass/Vol] 130 mg/dL 70-100 [facility] Comment on above: ADA recommended refe rence range Random Glucose Reference Range is dependent on time and content of last meal. Glucose of more than 200 mg/dL in a nonstressed, ambulatory subject supports the diagnosis of Diabetes Mellitus. Serum or plasma potassium me asurement (moles/volume)Ordered By: Alcides Moya on 11-12-2021 Potassium [Moles/Vol] 3.9 mmol/L 3.5-5.1 [facility] Serum or plasma prealbumin m easurement (mass/volume)Ordered By: Alcides Moya on 11-12-2021 Prealbumin [Mass/Vol] 21.7 mg/dL 18.0-38.0 [facility] Serum or plasma sodium measu rement (moles/volume)Ordered By: Alcides Moya on 11-12-2021 Sodium [Moles/Vol] 139 mmol/L 136-146 [facility] Serum or plasma total biliru bin measurement (mass/volume)Ordered By: Alcides Moya on 11-12-2021 Bilirubin [Mass/Vol] 0.8 mg/dL 0.3-1.2 [facility] Serum or plasma total carbon dioxide measurement (moles/volume)Ordered By: Alcides Moya on 11-12-2021 CO2 [Moles/Vol] 31.0 mmol/L 22.0-30.0 [facility] Serum or plasma urea nitroge n measurement (mass/volume)Ordered By: Alcides Moya on 11-12-2021 Urea nitrogen [Mass/Vol] 8 mg/dL 9- [facility] Glucose Glucometer (BldC) [M ass/Vol]Ordered By: Gaye Claire on 11-11-2021 Glucose [Mass/Vol] 127 mg/dL [facility] Comment on above: Random Glucose Refer ence Range is dependent on time and content of last meal. Glucose of more than 200 mg/dL in a nonstressed, ambulatory subject supports the diagnosis of Diabetes Mellitus. Glucose Poct Glucometerson 0 11-11-2021 Glucose [Mass/Vol] 168 mg/dL Normal [facility] Comment on above: Result Comment: [place] Glucose Reference Range is dependent on time and content of last meal. Glucose of more than 200 mg/dL in a nonstressed, ambulatory subject supports the diagnosis of Diabetes Mellitus. PERFORMED BY: [address] [place] [address] PATHOLOGIST BOOM CAT OPERATOR FLIP GERMAN M.D. Performed By: #### G LULS #### Point of Care testing , Commemt1 Glu2: Cleaned Meter [facility] Comment on above: Result Comment: PERF ORMED BY: [facility] [address] [place] [address] PATHOLOGIST BOOM CAT OPERATOR FLIP GERMAN M.D. Performed By: #### G LULS #### Point of Care testing , Glucose [Mass/Vol] 127 mg/dL Normal [facility] Comment on above: Result Comment: [place] om Glucose Reference Range is dependent on time and content of last meal. Glucose of more than 200 mg/dL in a nonstressed, ambulatory subject supports the diagnosis of Diabetes Mellitus. Performed By: #### G LULS #### Point of Care testing , Commemt1 Glu2: Cleaned Meter [facility] Comment on above: Result Comment: PERF ORMED BY: [facility] [address] [place] [address] PATHOLOGIST BOOM CAT OPERATOR FLIP GERMAN M.D. Performed By: #### G LULS ####Point of Care testing, Glucose [Mass/Vol] 228 mg/dL Normal [facility] Comment on above: Result Comment: [place] om Glucose Reference Range is dependent on time and content of last meal. Glucose of more than 200 mg/dL in a nonstressed, ambulatory subject supports the diagnosis of Diabetes Mellitus. Performed By: #### G LULS ####Point of Care testing, Commemt1 Glu2: Cleaned Meter [facility] Comment on above: Result Comment: PERF ORMED BY: [facility] [address] [place] [address] PATHOLOGIST BOOM CAT OPERATOR FLIP GERMAN M.D. Performed By: #### G LULS #### Point of Care testing , Glucose [Mass/Vol] 150 mg/dL Normal [facility] Comment on above: Result Comment: [place] om Glucose Reference Range is dependent on time and content of last meal. Glucose of more than 200 mg/dL in a nonstressed, ambulatory subject supports the diagnosis of Diabetes Mellitus. Performed By: #### G LULS #### Point of Care testing , Laboratory - CoagulationOrde red By: Enrrique Mota on 11-11-2021 PT Coag (PPP) [Time] 31.5 s 9.0-12.9 [facility] No Panel InformationOrdered By: Gaye Claire on 11-11-2021 Bedside Glucose Comment Glu2: cleaned meter [facility] Platelet poor plasma interna tional normalized ratio (INR) by coagulation assay (relatOrdered By: Enrrique Mota on 11-11-2021 INR Coag (PPP) [Relative time] 2.7 {INR} [facility] Comment on above: INR Therapeutic [...] Coag (PPP) [Relative time] 2.7 {INR} Normal [facility] Comment on above: Result Comment: [...] heart valves: 3 - 4.5 PERFORMED BY: [address] [place] [address] PATHOLOGIST BOOM CAT OPERATOR FLIP GERMAN M.D. Performed By: #### G IAN #### Point of Care testing , PT Coag (PPP) [Time] 31.5 s High 9.0-12.9 [facility] Comment on above: Performed By: #### G IAN #### Point of Care testing , Glucose Poct Glucometerson 0 11-10-2021 Glucose [Mass/Vol] 124 mg/dL Normal [facility] Comment on above: Result Comment: [facility] Glucose Reference Range is dependent on time and content of last meal. Glucose of more than 200 mg/dL in a nonstressed, ambulatory subject supports the diagnosis of Diabetes Mellitus. PERFORMED BY: [facility] [address] [place] [address] PATHOLOGIST BOOM CAT OPERATOR FLIP GERMAN M.D. Performed By: #### G IAN #### Point of Care testing , Commemt1 Glu2: Cleaned Meter Normal [facility] Comment on above: Result Comment: PERF ORMED BY: [address] [place] [address] PATHOLOGIST BOOM CAT OPERATOR FLIP GERMAN M.D. Performed By: #### G LULS #### Point of Care testing , Glucose [Mass/Vol] 143 mg/dL Normal [facility] Comment on above: Result Comment: [place] om Glucose Reference Range is dependent on time and content of last meal. Glucose of more than 200 mg/dL in a nonstressed, ambulatory subject supports the diagnosis of Diabetes Mellitus. Performed By: #### G LULS #### Point of Care testing , Commemt1 Glu2: Cleaned Meter [facility] Comment on above: Result Comment: PERF ORMED BY: [address] [place] [address] PATHOLOGIST BOOM CAT OPERATOR FLIP GERMAN M.D. Performed By: #### G LULS #### Point of Care testing , Glucose [Mass/Vol] 190 mg/dL Normal [facility] Comment on above: Result Comment: [place] om Glucose Reference Range is dependent on time and content of last meal. Glucose of more than 200 mg/dL in a nonstressed, ambulatory subject supports the diagnosis of Diabetes Mellitus. Performed By: #### G LULS #### Point of Care testing , Commemt1 Glu2: Cleaned Meter [facility] Comment on above: Result Comment: PERF ORMED BY: [address] [place] [id number] PATHOLOGIST BOOM CAT OPERATOR FLIP GERMAN M.D. Performed By: #### G LULS #### Point of Care testing , Glucose [Mass/Vol] 136 mg/dL Normal [facility] Comment on above: Result Comment: [place] om Glucose Reference Range is dependent on time and content of last meal. Glucose of more than 200 mg/dL in a nonstressed, ambulatory subject supports the diagnosis of Diabetes Mellitus. Performed By: #### G LULS #### Point of Care testing , Prothrombin Time INRon 08-30 -2022 INR Coag (PPP) [Relative time] 2.5 {INR} Normal [facility] Comment on above: Result Comment: [...] heart valves: 3 - 4.5 PERFORMED BY: [address] [place] [address] PATHOLOGIST BOOM CAT OPERATOR FLIP GERMAN M.D. Performed By: #### G LULS #### Point of Care testing , PT Coag (PPP) [Time] 28.4 s High 9.0-12.9 [facility] Comment on above: Performed By: #### G LULS #### Point of Care testing , Glucose Poct Glucometerson 0 11-09-2021 Commemt1 Glu2: Cleaned Meter [facility] Comment on above: Result Comment: PERF ORMED BY: [address] [place] [address] PATHOLOGIST BOOM CAT OPERATOR FLIP GERMAN M.D. Performed By: #### G LULS #### Point of Care testing , Glucose [Mass/Vol] 165 mg/dL [facility] Comment on above: Result Comment: [facility] Glucose Reference Range is dependent on time and content of last meal. Glucose of more than 200 mg/dL in a nonstressed, ambulatory subject supports the diagnosis of Diabetes Mellitus. Performed By: #### G LULS #### Point of Care testing , Commemt1 Glu2: Cleaned Meter [facility] Comment on above: Result Comment: PERF ORMED BY: [address] [place] [id number] PATHOLOGIST BOOM CAT OPERATOR FLIP GERMAN M.D. Performed By: #### G LULS #### Point of Care testing , Glucose [Mass/Vol] 156 mg/dL Normal [facility] Comment on above: Result Comment: [place] om Glucose Reference Range is dependent on time and content of last meal. Glucose of more than 200 mg/dL in a nonstressed, ambulatory subject supports the diagnosis of Diabetes Mellitus. Performed By: #### G LULS #### Point of Care testing , Glucose [Mass/Vol] 257 mg/dL Normal [facility] Comment on above: Result Comment: [place] om Glucose Reference Range is dependent on time and content of last meal. Glucose of more than 200 mg/dL in a nonstressed, ambulatory subject supports the diagnosis of Diabetes Mellitus. PERFORMED BY: [address] [place] [address] PATHOLOGIST BOOM CAT OPERATOR FLIP GERMAN M.D. Performed By: #### G LULS #### Point of Care testing , Glucose [Mass/Vol] 142 mg/dL Normal [facility] Comment on above: Result Comment: [place] om Glucose Reference Range is dependent on time and content of last meal. Glucose of more than 200 mg/dL in a nonstressed, ambulatory subject supports the diagnosis of Diabetes Mellitus. PERFORMED BY: [address] [place] [address] PATHOLOGIST BOOM CAT OPERATOR FLIP GERMAN M.D. Performed By: #### G LULS #### Point of Care testing , Prothrombin Time INRon 11-09 INR Coag (PPP) [Relative time] 2.7 {INR} Normal [facility] Comment on above: Result Comment: [...] heart valves: 3 - 4.5 PERFORMED BY: [facility] [address] [place] [id number] PATHOLOGIST BOOM CAT OPERATOR FLIP GERMAN M.D. Performed By: #### G LULS #### Point of Care testing , PT Coag (PPP) [Time] 30.5 s High 9.0-12.9 [facility] Comment on above: Performed By: #### G LULS #### Point of Care testing , Glucose Poct Glucometerson 0 11-08-2021 Glucose [Mass/Vol] 180 mg/dL Normal [facility] Comment on above: Result Comment: [facility] Glucose Reference Range is dependent on time and content of last meal. Glucose of more than 200 mg/dL in a nonstressed, ambulatory subject supports the diagnosis of Diabetes Mellitus. PERFORMED BY: [address] [place] [id number] PATHOLOGIST BOOM CAT OPERATOR FLIP GERMAN M.D. Performed By: #### G LULS #### Point of Care testing , Glucose [Mass/Vol] 161 mg/dL Normal [facility] Comment on above: Result Comment: [facility] Glucose Reference Range is dependent on time and content of last meal. Glucose of more than 200 mg/dL in a nonstressed, ambulatory subject supports the diagnosis of Diabetes Mellitus. PERFORMED BY: [address] [place] [address] PATHOLOGIST BOOM CAT OPERATOR FLIP GERMAN M.D. Performed By: #### G LULS #### Point of Care testing , Glucose [Mass/Vol] 193 mg/dL Normal [facility] Comment on above: Result Comment: [facility] Glucose Reference Range is dependent on time and content of last meal. Glucose of more than 200 mg/dL in a nonstressed, ambulatory subject supports the diagnosis of Diabetes Mellitus. PERFORMED BY: [address] [place] [address] PATHOLOGIST BOOM CAT OPERATOR FLIP GERMAN M.D. Performed By: #### G LULS #### Point of Care testing , Commemt1 Glu2: Cleaned Meter Normal [facility] Comment on above: Result Comment: PERF ORMED BY: [facility] [address] [place] [address] PATHOLOGIST BOOM CAT OPERATOR FLIP GERMAN M.D. Performed By: #### G LULS #### Point of Care testing , Glucose [Mass/Vol] 155 mg/dL Normal [facility] Comment on above: Result Comment: [place] om Glucose Reference Range is dependent on time and content of last meal. Glucose of more than 200 mg/dL in a nonstressed, ambulatory subject supports the diagnosis of Diabetes Mellitus. Performed By: #### G LULS #### Point of Care testing , Prothrombin Time INRon 11-08 INR Coag (PPP) [Relative time] 2.9 {INR} Normal [facility] Comment on above: Result Comment: [...] heart valves: 3 - 4.5 PERFORMED BY: [address] [place] [address] PATHOLOGIST BOOM CAT OPERATOR FLIP GERMAN M.D. Performed By: #### G LULS #### Point of Care testing , PT Coag (PPP) [Time] 33.0 s High 9.0-12.9 [facility] Comment on above: Performed By: #### G LULS #### Point of Care testing , Glucose Poct Glucometerson 0 11-07-2021 Commemt1 Glu2: Cleaned Meter [facility] Comment on above: Result Comment: PERF ORMED BY: [facility] [address] [place] [address] PATHOLOGIST BOOM CAT OPERATOR FLIP GERMAN M.D. Performed By: #### G LULS #### Point of Care testing , Glucose [Mass/Vol] 183 mg/dL Normal [facility] Comment on above: Result Comment: [place] Glucose Reference Range is dependent on time and content of last meal. Glucose of more than 200 mg/dL in a nonstressed, ambulatory subject supports the diagnosis of Diabetes Mellitus. Performed By: #### G LULS #### Point of Care testing , Commemt1 Glu2: Cleaned Meter [facility] Comment on above: Result Comment: PERF ORMED BY: [facility] [address] [place] [address] PATHOLOGIST BOOM CAT OPERATOR FLIP GERMAN M.D. Performed By: #### G LULS #### Point of Care testing , Glucose [Mass/Vol] 154 mg/dL Normal [facility] Comment on above: Result Comment: [place] om Glucose Reference Range is dependent on time and content of last meal. Glucose of more than 200 mg/dL in a nonstressed, ambulatory subject supports the diagnosis of Diabetes Mellitus. Performed By: #### G LULS #### Point of Care testing , Commemt1 Glu2: Cleaned Meter Normal [facility] Comment on above: Result Comment: PERF ORMED BY: [facility] [address] [place] [address] PATHOLOGIST BOOM CAT OPERATOR FLIP GERMAN M.D. Performed By: #### G LULS #### Point of Care testing , Glucose [Mass/Vol] 339 mg/dL Normal [facility] Comment on above: Result Comment: [place] om Glucose Reference Range is dependent on time and content of last meal. Glucose of more than 200 mg/dL in a nonstressed, ambulatory subject supports the diagnosis of Diabetes Mellitus. Performed By: #### G LULS #### Point of Care testing , Glucose [Mass/Vol] 146 mg/dL Normal [facility] Comment on above: Result Comment: [place] om Glucose Reference Range is dependent on time and content of last meal. Glucose of more than 200 mg/dL in a nonstressed, ambulatory subject supports the diagnosis of Diabetes Mellitus. PERFORMED BY: [address] [place] [address] PATHOLOGIST BOOM CAT OPERATOR FLIP GERMAN M.D. Performed By: #### G LULS #### Point of Care testing , Prothrombin Time INRon 11-07 INR Coag (PPP) [Relative time] 2.0 {INR} Normal [facility] Comment on above: Result Comment: [...] heart valves: 3 - 4.5 PERFORMED BY: [facility] [address] [place] [address] PATHOLOGIST BOOM CAT OPERATOR FLIP GERMAN M.D. Performed By: #### G LULS #### Point of Care testing , PT Coag (PPP) [Time] 22.8 s High 9.0-12.9 [facility] Comment on above: Performed By: #### G LULS #### Point of Care testing , Basic Metabolic Panelon 10-13 Calcium [Mass/Vol] 9.1 mg/dL Normal 8.2-10.2 [facility] Comment on above: Performed By: #### G LULS #### Point of Care testing , Chloride [Moles/Vol] 98 mmol/L Normal 95-114 [facility] Comment on above: Performed By: #### G LULS #### Point of Care testing , CO2 [Moles/Vol] 33.3 mmol/L High 22.0-30.0 [facility] Comment on above: Performed By: #### G LULS #### Point of Care testing , Creatinine [Mass/Vol] 0.63 mg/dL Normal 0.44-1.03 [facility] Comment on above: Performed By: #### G LULS #### Point of Care testing , Creatinine Clr Calc Pharmacy 65.08 [facility] Comment on above: Result Comment: PERF ORMED BY: [facility] [address] [place] [address] PATHOLOGIST BOOM CAT OPERATOR FLIP GERMAN M.D. Performed By: #### G LULS #### Point of Care testing , Estimated GFR ( Trista > 60 [facility] Comment on above: Result Comment: GFR estimated reference range: According to KDOQI guidelines, <60 ml/min/1.73m2 is sufficient to diagnose a patient with chronic kidney disease. Performed By: #### G LULS #### Point of Care testing , Estimated GFR (Non- Am > [address] [facility] Comment on above: Performed By: #### G LULS #### Point of Care testing , Glucose [Mass/Vol] 159 mg/dL High 70-100 [facility] Comment on above: Result Comment: [place] Glucose Reference Range is dependent on time and content of last meal. Glucose of more than 200 mg/dL in a nonstressed, ambulatory subject supports the diagnosis of Diabetes Mellitus. ADA recommended reference range Performed By: #### G LULS #### Point of Care testing , Potassium [Moles/Vol] 3.3 mmol/L Low 3.5-5.1 [facility] Comment on above: Performed By: #### G LULS #### Point of Care testing , Sodium [Moles/Vol] 140 mmol/L Normal 136-146 [facility] Comment on above: Performed By: #### G LULS #### Point of Care testing , Urea nitrogen [Mass/Vol] 6 mg/dL Low 9-23 [facility] Comment on above: Performed By: #### G LULS #### Point of Care testing , Basophils Auto (Bld) [#/Vol] Ordered By: Faustina Barr on 11-06-2021 Basophils (Bld) [#/Vol] 0.0 10*3/uL 0.0-0.2 [facility] Basophils/100 WBC Auto (Bld) Ordered By: Faustina Barr on 11-06-2021 Basophils/100 WBC (Bld) 0.5 % . [facility] Blood hemoglobin measurement (mass/volume)Ordered By: Faustina Barr on 11-06-2021 Hemoglobin (Bld) [Mass/Vol] 11.8 g/dL 11.8-15.4 [facility] Blood leukocytes automated c ount (number/volume)Ordered By: Faustina Barr on 11-06-2021 WBC (Bld) [#/Vol] 5.6 10*3/uL 4.5-11.0 [facility] Complete Blood Count Auto Di ffon 11-06-2021 Basophils (Bld) [#/Vol] 0.0 10*3/uL Normal 0.0-0.2 [facility] Comment on above: Result Comment: PERF ORMED BY: [facility] [place] [address] PATHOLOGIST BOOM CAT OPERATOR FLIP GERMAN M.D. Performed By: #### G LULS #### Point of Care testing , Basophils/100 WBC (Bld) 0.5 % Normal . [facility] Comment on above: Performed By: #### G LULS #### Point of Care testing , Eosinophils (Bld) [#/Vol] 0.2 10*3/uL Normal 0.0-0.45 [facility] Comment on above: Performed By: #### G LULS #### Point of Care testing , Eosinophils/100 WBC (Bld) 3.9 % Normal . [facility] Comment on above: Performed By: #### G LULS #### Point of Care testing , Erythrocyte distribution width (RBC) [Ratio] 16.6 % High 11.9-15.3 [facility] Comment on above: Performed By: #### G LULS #### Point of Care testing , Hematocrit (Bld) [Volume fraction] 37.0 % Normal 34.0-46.4 [facility] Comment on above: Performed By: #### G LULS #### Point of Care testing , Hemoglobin (Bld) [Mass/Vol] 11.8 g/dL Normal 11.8-15.4 [facility] Comment on above: Performed By: #### G LULS #### Point of Care testing , Lymphocytes (Bld) [#/Vol] 2.1 10*3/uL Normal 1.00-4.8 [facility] Comment on above: Performed By: #### G LULS #### Point of Care testing , Lymphocytes/100 WBC (Bld) 37.6 % Normal . [facility] Comment on above: Performed By: #### G LULS #### Point of Care testing , MCH (RBC) [Entitic mass] 28.8 pg Normal 24.7-34.3 [facility] Comment on above: Performed By: #### Charles SOSA #### Point of Care testing , MCV (RBC) [Entitic vol] 90.5 fL Normal 80-100 [facility] Comment on above: Performed By: #### Charles SOSA #### Point of Care testing , Mean Corpuscular HGB Conc 31.9 g/dL Low 32.0-35.0 [facility] Comment on above: Performed By: #### Charles BRIZUELALS #### Point of Care testing , Monocytes (Bld) [#/Vol] 0.7 10*3/uL Normal 0.0-0.8 [facility] Comment on above: Performed By: #### Charles SOSA #### Point of Care testing , Monocytes/100 WBC (Bld) 12.7 % Normal . [facility] Comment on above: Performed By: #### Charles BRIZUELALS #### Point of Care testing , Neutrophils (Bld) [#/Vol] 2.5 10*3/uL Normal 1.8-7.7 [facility] Comment on above: Performed By: #### Charles SOSA #### Point of Care testing , Neutrophils/100 WBC (Bld) 45.3 % Normal . [facility] Comment on above: Performed By: #### Charles SOSA #### Point of Care testing , Nucleated RBC/100 WBC (Bld) [Ratio] 0.1 % Normal 0-0.5 [facility] Comment on above: Performed By: #### Charles BRIZUELALS #### Point of Care testing , Platelet mean volume (Bld) [Entitic vol] 8.3 fL Normal 6.3-10.7 [facility] Comment on above: Performed By: #### Charles SOSA #### Point of Care testing , Platelets (Bld) [#/Vol] 298 10*3/uL Normal 150-450 [facility] Comment on above: Performed By: #### Charles SOSA #### Point of Care testing , RBC (Bld) [#/Vol] 4.09 10*6/uL Normal 3.60-5.00 [facility] Comment on above: Performed By: #### G LULS #### Point of Care testing , WBC (Bld) [#/Vol] 5.6 10*3/uL Normal 4.5-11.0 [facility] Comment on above: Performed By: #### G LULS #### Point of Care testing , Creatinine and Glomerular fi ltration rate.predicted panel (S/P/Bld)Ordered By: Faustina Barr on 11-06-2021 Creatinine [Mass/Vol] 0.63 mg/dL 0.44-1.03 [facility] Eosinophils Auto (Bld) [#/Vo l]Ordered By: Faustina Barr on 11-06-2021 Eosinophils (Bld) [#/Vol] 0.2 10*3/uL 0.0-0.45 [facility] Eosinophils/100 WBC Auto (Bl d)Ordered By: Faustina Barr on 11-06-2021 Eosinophils/100 WBC (Bld) 3.9 % . [facility] Erythrocyte distribution wid th Auto (RBC) [Ratio]Ordered By: Faustina Barr on 11-06-2021 Erythrocyte distribution width (RBC) [Ratio] 16.6 % 11.9-15.3 [facility] Estimated glomerular filtrat ion rate (GFR) non- AmericanOrdered By: Faustina Barr on 11-06-2021 GFR/1.73 sq M.predicted among non-blacks MDRD (S/P/Bld) [Vol rate/Area] > 60 mL/Min [facility] Glucose Poct Glucometerson 0 11-06-2021 Commemt1 Glu2: Cleaned Meter Normal [facility] Comment on above: Result Comment: PERF ORMED BY: [facility] [address] [place] [address] PATHOLOGIST BOOM CAT OPERATOR FLIP GERMAN M.D. Performed By: #### G LULS #### Point of Care testing , Glucose [Mass/Vol] 175 mg/dL Normal [facility] Comment on above: Result Comment: [place] Glucose Reference Range is dependent on time and content of last meal. Glucose of more than 200 mg/dL in a nonstressed, ambulatory subject supports the diagnosis of Diabetes Mellitus. Performed By: #### G LULS #### Point of Care testing , Commemt1 Glu2: Cleaned Meter Normal [facility] Comment on above: Result Comment: PERF ORMED BY: [address] [place] [address] PATHOLOGIST BOOM CAT OPERATOR FLIP GERMAN M.D. Performed By: #### G LULS #### Point of Care testing , Glucose [Mass/Vol] 141 mg/dL Normal [facility] Comment on above: Result Comment: [place] om Glucose Reference Range is dependent on time and content of last meal. Glucose of more than 200 mg/dL in a nonstressed, ambulatory subject supports the diagnosis of Diabetes Mellitus. Performed By: #### G LULS #### Point of Care testing , Glucose [Mass/Vol] 171 mg/dL Normal [facility] Comment on above: Result Comment: [place] om Glucose Reference Range is dependent on time and content of last meal. Glucose of more than 200 mg/dL in a nonstressed, ambulatory subject supports the diagnosis of Diabetes Mellitus. PERFORMED BY: [address] [place] [address] PATHOLOGIST BOOM CAT OPERATOR FLIP GERMAN M.D. Performed By: #### G LULS #### Point of Care testing , Glucose [Mass/Vol] 139 mg/dL Normal [facility] Comment on above: Result Comment: [place] Glucose Reference Range is dependent on time and content of last meal. Glucose of more than 200 mg/dL in a nonstressed, ambulatory subject supports the diagnosis of Diabetes Mellitus. PERFORMED BY: [address] [place] [address] PATHOLOGIST BOOM CAT OPERATOR FLIP GERMAN M.D. Performed By: #### G LULS #### Point of Care testing , Hematocrit Auto (Bld) [Volum e fraction]Ordered By: Faustina Barr on 11-06-2021 Hematocrit (Bld) [Volume fraction] 37.0 % 34.0-46.4 [facility] Laboratory - Hematology and Cell countsOrdered By: Faustina Barr on 11-06-2021 Nucleated RBC/100 WBC (Bld) [Ratio] 0.1 % 0-0.5 [facility] Lymphocytes Auto (Bld) [#/Vo l]Ordered By: Faustina Barr on 11-06-2021 Lymphocytes (Bld) [#/Vol] 2.1 10*3/uL 1.00-4.8 [facility] Lymphocytes/100 WBC Auto (Bl d)Ordered By: Faustina Barr on 11-06-2021 Lymphocytes/100 WBC (Bld) 37.6 % . [facility] MCH Auto (RBC) [Entitic mass ]Ordered By: Faustina Barr on 11-06-2021 MCH (RBC) [Entitic mass] 28.8 pg 24.7-34.3 [facility] MCHC Auto (RBC) [Mass/Vol]Or dered By: Faustina Barr on 11-06-2021 MCHC (RBC) [Mass/Vol] 31.9 g/dL 32.0-35.0 [facility] MCV Auto (RBC) [Entitic vol] Ordered By: Faustina Barr on 11-06-2021 MCV (RBC) [Entitic vol] 90.5 fL 80-100 [facility] Monocytes Auto (Bld) [#/Vol] Ordered By: Faustina Barr on 11-06-2021 Monocytes (Bld) [#/Vol] 0.7 10*3/uL 0.0-0.8 [facility] Monocytes/100 WBC Auto (Bld) Ordered By: Faustina Barr on 11-06-2021 Monocytes/100 WBC (Bld) 12.7 % . [facility] Neutrophils Auto (Bld) [#/Vo l]Ordered By: Faustina Barr on 11-06-2021 Neutrophils (Bld) [#/Vol] 2.5 10*3/uL 1.8-7.7 [facility] Neutrophils/100 WBC Auto (Bl d)Ordered By: Faustina Barr on 11-06-2021 Neutrophils/100 WBC (Bld) 45.3 % . [facility] No Panel InformationOrdered By: Faustina Barr on 11-06-2021 Estimated GFR () > 60 mL/Min [facility] Comment on above: GFR estimated refere nce range: According to KDOQI guidelines, <60 ml/min/1.73m2 is sufficient to diagnose a patient with chronic kidney disease. Pharmacy Creatinine Clearance (Chem 65.08 [facility] Platelet mean volume Auto (B ld) [Entitic vol]Ordered By: Faustina Barr on 11-06-2021 Platelet mean volume (Bld) [Entitic vol] 8.3 fL 6.3-10.7 [facility] Platelets Auto (Bld) [#/Vol] Ordered By: Faustina Barr on 11-06-2021 Platelets (Bld) [#/Vol] 298 10*3/uL 150-450 [facility] Prothrombin Time INRon 11-06 INR Coag (PPP) [Relative time] 1.3 {INR} Normal [facility] Comment on above: Result Comment: [...] heart valves: 3 - 4.5 PERFORMED BY: [address] [place] [address] PATHOLOGIST BOOM CAT OPERATOR FLIP GERMAN M.D. Performed By: #### G LULS #### Point of Care testing , PT Coag (PPP) [Time] 14.4 s High 9.0-12.9 [facility] Comment on above: Performed By: #### G LULS #### Point of Care testing , RBC Auto (Bld) [#/Vol]Ordere d By: Faustina Barr on 11-06-2021 RBC (Bld) [#/Vol] 4.09 10*6/uL 3.60-5.00 [facility] Serum or plasma calcium alondra urement (mass/volume)Ordered By: Faustina aBrr on 11-06-2021 Calcium [Mass/Vol] 9.1 mg/dL 8.2-10.2 [facility] Serum or plasma chloride link surement (moles/volume)Ordered By: Faustina Barr on 11-06-2021 Chloride [Moles/Vol] 98 mmol/L 95-114 [facility] Serum or plasma glucose alondra urement (mass/volume)Ordered By: Faustina Barr on 11-06-2021 Glucose [Mass/Vol] 159 mg/dL 70-100 [facility] Comment on above: ADA recommended refe rence [...] on 11-06-2021 Potassium [Moles/Vol] 3.3 mmol/L 3.5-5.1 [facility] Serum or plasma sodium measu rement (moles/volume)Ordered By: Faustina Barr on 11-06-2021 Sodium [Moles/Vol] 140 mmol/L 136-146 [facility] Serum or plasma total carbon dioxide measurement (moles/volume)Ordered By: Faustina Barr on 11-06-2021 CO2 [Moles/Vol] 33.3 mmol/L 22.0-30.0 [facility] Serum or plasma urea nitroge n measurement (mass/volume)Ordered By: Faustina Barr on 11-06-2021 Urea nitrogen [Mass/Vol] 6 mg/dL 9-23 [facility] Urine culture routineOrdered By: Marvin Peter on 11-06-2021 Bacteria identified Cx Nom (U) Escherichia coli [facility] Glucose Poct Glucometerson 0 11-05-2021 Commemt1 Glu2: Cleaned Meter Normal [facility] Comment on above: Result Comment: PERF ORMED BY: [place] [id number] PATHOLOGIST BOOM CAT OPERATOR LFIP GERMAN M.D. Performed By: #### G LULS #### Point of Care testing , Glucose [Mass/Vol] 202 mg/dL Normal [facility] Comment on above: Result Comment: [place] Glucose Reference Range is dependent on time and content of last meal. Glucose of more than 200 mg/dL in a nonstressed, ambulatory subject supports the diagnosis of Diabetes Mellitus. Performed By: #### G LULS #### Point of Care testing , MR lumbar spine wo conon MR lumbar spine wo con [facility] Main [place] [id number] MRI Report Signed Patient: Alton Barker MR#: [id number] 987 : 1940 Acct:[id number] Age/Sex: 81 / F ADM Date: 11/04/21 Loc: Room: [address] [place] [address] Type: ADM INOo Attending Dr: Enrrique Mota [...] Vijay Holden M.D.11/05/2021 12:14 PM Dictation Location: [place] [address] Transcribed By: [facility] 11/05/21 1214 Dictated By: Vijay Holden II, MD 11/05/21 1209 Signed By: 11/05/21 1214 [facility] Prothrombin Time INRon 11-05 INR Coag (PPP) [Relative time] 1.8 {INR} [facility] Comment on above: Result Comment: INR Therapeutic [...] heart valves: 3 - 4.5 PERFORMED BY: [facility] [place] [address] PATHOLOGIST BOOM CAT OPERATOR FLIP GERMAN M.D. Performed By: #### G LUCOLLIN #### Point of Care testing , PT Coag (PPP) [Time] 20.0 s High 9.0-12.9 [facility] Comment on above: Performed By: #### G LULS #### Point of Care testing , Albumin [Mass/volume] in Ser um or PlasmaOrdered By: Marvin Peter on 11-04-2021 Albumin [Mass/Vol] 3.4 g/dL 3.2-5.5 [facility] Automated erythrocytes count in urine sediment (number/area)Ordered By: Marvin Peter on 11-04-2021 RBC Auto (Urine sed) [#/Area] Innumerable [HPF] 0-4 [facility] Automated leukocytes count i n urine sediment (number/area)Ordered By: Marvin Peter on 11-04-2021 WBC Auto (Urine sed) [#/Area] 50-100 [HPF] 0-4 [facility] Automated urine hyaline cast s count (number/volume)Ordered By: Marvin Pteer on 11-04-2021 Hyaline casts Auto (U) [#/Vol] Rare [LPF] 0-1 [facility] Bilirubin Test strip Ql (U)O rdered By: Marvin Peter on 11-04-2021 Bilirubin Ql (U) Negative Negative [facility] COVID CepheidOrdered By: Artie Peter on 11-04-2021 SARS-CoV-2 (COVID-19) Ab IA Ql Negative Negative [facility] Comment on above: This is a duplicate Cepheid Xpert Xpress CoV-2/Flu/RSV Plus RNA by RT-PCR result to be used for statistical tracking purpose only. SARS-CoV-2 (COVID-19) RNA PIPE+probe Ql (Unsp spec) [facility] COVID-19 / Flu A/B / [...] or Cepheid Disclaimer revoked sooner. PERFORMED BY: [facility] [place] [address] PATHOLOGIST BOOM CAT OPERATOR FLIP GERMAN M.D. [facility] Comment on above: Performed By: [...] developed and its performance characteristic determined by [facility] and validated at [facility]. This test has not been [...] for SARS Antigen by [facility] PERFORMED BY: [facility] [address] [place] [address] PATHOLOGIST BOOM CAT OPERATOR FLIP GERMAN M.D. Normal [facility] Comment on above: Performed By: #### G LULS #### Point of Care testing , COVID-19 SOFIAOrdered By: Sina Peter on 11-04-2021 SARS-CoV+SARS-CoV-2 (COVID-19) Ag IA.rapid Ql (Resp) Negative Negative [facility] Comment on above: This is a duplicate Evita SARS Antigen ([facility]) result to be used for statistical tracking purpose only. CT cervical spine wo conon 0 11-04-2021 CT cervical spine wo con [facility] [place] [address] CT Scan Report Signed Patient: Alton Barker MR#: [id number] 987 : 1940 Acct:[id number] Age/Sex: 81 / F ADM Date: 11/04/21 Loc: ER Room: Type: [facility] ER Attending Dr: Copies to: Marvin [...] Baltazar Saucedo M.D.11/04/2021 5:55 PM Dictation Location: [place] [address] Transcribed By: [facility] 11/04/211754 Dictated By: Baltazar Saucedo DO 11/04/211752 Signed By: 11/04/211754 [facility] CT head/brain wo conon 11-04 CT head/brain wo con [facility] Main [address] [address] [address] Scan Report Signed Patient: Alton Barker MR#: [id number] 987 : 1940 Acct:[id number] Age/Sex: 81 / F ADM Date: 11/04/21 Loc: ER Room: Type: [facility] ER Attending Dr: Copies to: Marvin [...] Baltazar Saucedo M.D.11/04/2021 5:52 PM Dictation Location: [place] [address] Transcribed By: [facility] 11/04/211751 Dictated By: Baltazar Saucedo DO 11/04/211747 Signed By: 11/04/211751 [facility] CT lumbar spine wo [facility] CT lumbar spine wo [facility] Main [place] [address] [place] [address] CT Scan Report Signed Patient: Alton Barker MR#: [id number] 987 : 1940 Acct:[id number] Age/Sex: 81 / F ADM Date: 11/04/21 Loc: ER Room: Type: [facility] ER Attending Dr: Copies to: Marvin [...] Baltazar Saucedo M.D.11/04/2021 6:06 PM Dictation Location: [place] [address] Transcribed By: [facility] 11/04/211805 Dictated By: Baltazar Saucedo DO 11/04/211800 Signed By: 11/04/211805 [facility] CT thoracic spine wo conon 0 11-04-2021 CT thoracic spine wo con [facility] [place] [address] CT Scan Report Signed Patient: Alton Barker MR#: [id number] 987 : 1940 Acct:[id number] Age/Sex: 81 / F ADM Date: 11/04/21 Loc: ER Room: Type: [facility] ER Attending Dr: Copies to: Marvin [...] Baltazar Saucedo M.D.11/04/2021 6:00 PM Dictation Location: [place] [address] Transcribed By: [facility] 11/04/21 1800 Dictated By: Baltazar Saucedo DO 11/04/21 1758 Signed By: 11/04/[address] [facility] Casts typing in urine sedime nt by light microscopyOrdered By: Marvin Peter on 11-04-2021 Casts LM Nom (Urine sed) None seen [LPF] None Seen [facility] Cepheid COVID PCR Negativeon 11-04-2021 SARS-CoV-2 (COVID-19) RNA PIPE+probe Ql (Unsp spec) Negative Normal Negative [facility] Comment on above: Result Comment: This is a duplicate Cepheid Xpert Xpress CoV-2/Flu/RSV Plus RNA by RT-PCR result to be used for statistical tracking purpose only. PERFORMED BY: [facility] [address] [facility] [place] [address] PATHOLOGIST BOOM CAT OPERATOR FLIP GERMAN M.D. Performed By: #### G LULS #### Point of Care testing , Color Auto (U)Ordered By: Sina Peter on 11-04-2021 Color (U) Yellow Yellow [facility] Complete Blood Count Auto Di ffon 11-04-2021 Basophils (Bld) [#/Vol] 0.0 10*3/uL Normal 0.0-0.2 [facility] Comment on above: Result Comment: PERF ORMED BY: [facility] [address] [place] [address] PATHOLOGIST BOOM CAT OPERATOR FLIP GERMAN M.D. Performed By: #### C MP, CBC ####[facility] [id number] Basophils/100 WBC (Bld) 0.6 % Normal . [facility] Comment on above: Performed By: #### C MP, CBC ####[address] Eosinophils (Bld) [#/Vol] 0.1 10*3/uL Normal 0.0-0.45 [facility] Comment on above: Performed By: #### C MP, CBC ####[address] Eosinophils/100 WBC (Bld) 1.7 % Normal . [facility] Comment on above: Performed By: #### C MP, CBC ####[address] Erythrocyte distribution width (RBC) [Ratio] 16.3 % High 11.9-15.3 [facility] Comment on above: Performed By: #### C MP, CBC ####[address] Hematocrit (Bld) [Volume fraction] 39.2 % Normal 34.0-46.4 [facility] Comment on above: Performed By: #### C MP, CBC ####[address] Hemoglobin (Bld) [Mass/Vol] 12.8 g/dL Normal 11.8-15.4 [facility] Comment on above: Performed By: #### C MP, CBC ####[address] Lymphocytes (Bld) [#/Vol] 1.6 10*3/uL Normal 1.00-4.8 [facility] Comment on above: Performed By: #### C MP, CBC ####[address] Lymphocytes/100 WBC (Bld) 20.3 % Normal . [facility] Comment on above: Performed By: #### C MP, CBC ####[address] MCH (RBC) [Entitic mass] 29.2 pg Normal 24.7-34.3 [facility] Comment on above: Performed By: #### C MP, CBC ####[address] MCV (RBC) [Entitic vol] 89.5 fL Normal 80-100 [facility] Comment on above: Performed By: #### C MP, CBC ####[address] Mean Corpuscular HGB Conc 32.6 g/dL Normal 32.0-35.0 [facility] Comment on above: Performed By: #### C MP, CBC ####[address] Monocytes (Bld) [#/Vol] 0.8 10*3/uL Normal 0.0-0.8 [facility] Comment on above: Performed By: #### C MP, CBC ####[address] Monocytes/100 WBC (Bld) 9.7 % Normal . [facility] Comment on above: Performed By: #### C MP, CBC ####[address] Neutrophils (Bld) [#/Vol] 5.3 10*3/uL Normal 1.8-7.7 [facility] Comment on above: Performed By: #### C MP, CBC ####[address] Neutrophils/100 WBC (Bld) 67.7 % Normal . [facility] Comment on above: Performed By: #### C MP, CBC ####[address] Nucleated RBC/100 WBC (Bld) [Ratio] 0.1 % Normal 0-0.5 [facility] Comment on above: Performed By: #### C MP, CBC ####[address] Platelet mean volume (Bld) [Entitic vol] 7.9 fL Normal 6.3-10.7 [facility] Comment on above: Performed By: #### C MP, CBC ####[address] [address] [facility] Platelets (Bld) [#/Vol] 318 10*3/uL Normal 150-450 [facility] Comment on above: Performed By: #### C MP, CBC ####[place] [id number] [facility] RBC (Bld) [#/Vol] 4.38 10*6/uL Normal 3.60-5.00 [facility] Comment on above: Performed By: #### C MP, CBC ####[place] [id number] [facility] WBC (Bld) [#/Vol] 7.9 10*3/uL Normal 4.5-11.0 [facility] Comment on above: Performed By: #### C MP, CBC ####[place] [id number] [facility] Comprehensive Metabolic Pane loco 11-04-2021 Albumin [Mass/Vol] 3.4 g/dL Normal 3.2-5.5 [facility] Comment on above: Performed By: #### C MP, CBC ####[place] [id number] [facility] Albumin/Globulin [Mass ratio] 0.9 {ratio} Normal [facility] Comment on above: Performed By: #### C MP, CBC ####[place] [id number] [facility] ALP [Catalytic activity/Vol] 80 U/L Normal 32-92 [facility] Comment on above: Performed By: #### C MP, CBC ####[address] [address] [facility] ALT [Catalytic activity/Vol] 7 U/L Low 10-60 [facility] Comment on above: Performed By: #### C MP, CBC ####[address] [place] [address] [facility] AST [Catalytic activity/Vol] 16 U/L Normal 10-42 [facility] Comment on above: Performed By: #### C MP, CBC ####[place] [id number] [facility] Bilirubin [Mass/Vol] 1.2 mg/dL Normal 0.3-1.2 [facility] Comment on above: Performed By: #### C MP, CBC ####[address] Calcium [Mass/Vol] 9.7 mg/dL Normal 8.2-10.2 [facility] Comment on above: Performed By: #### C MP, CBC ####[address] Chloride [Moles/Vol] 95 mmol/L Normal 95-114 [facility] Comment on above: Performed By: #### C MP, CBC ####[address] CO2 [Moles/Vol] 30.4 mmol/L High 22.0-30.0 [facility] Comment on above: Performed By: #### C MP, CBC ####[place] [id number] [facility] Creatinine [Mass/Vol] 0.61 mg/dL Normal 0.44-1.03 [facility] Comment on above: Performed By: #### C MP, CBC ####[place] [id number] [facility] Creatinine Clr Calc Pharmacy 64.44 [facility] Comment on above: Result Comment: PERF ORMED BY: [facility] [address] [place] [address] PATHOLOGIST BOOM CAT OPERATOR FLIP GERMAN M.D. Performed By: #### C MP, CBC ####[place] [id number] [facility] Estimated GFR ( Trista > [address] [facility] Comment on above: Result Comment: GFR estimated reference range: According to KDOQI guidelines, <60 ml/min/1.73m2 is sufficient to diagnose a patient with chronic kidney disease. Performed By: #### C MP, CBC ####[address] [address] [facility] Estimated GFR (Non- Am > 60 [facility] Comment on above: Performed By: #### C MP, CBC ####[address] [address] [facility] Globulin (S) [Mass/Vol] 3.7 g/dL [facility] Comment on above: Performed By: #### C MP, CBC ####[address] [address] [facility] Glucose [Mass/Vol] 131 mg/dL High 70-100 [facility] Comment on above: Result Comment: [place] Glucose Reference Range is dependent on time and content of last meal. Glucose of more than 200 mg/dL in a nonstressed, ambulatory subject supports the diagnosis of Diabetes Mellitus. ADA recommended reference range Performed By: #### C MP, CBC ####[address] [address] [facility] Potassium [Moles/Vol] 3.8 mmol/L Normal 3.5-5.1 [facility] Comment on above: Performed By: #### C MP, CBC ####[address] [address] [facility] Protein [Mass/Vol] 7.1 g/dL Normal 6.1-7.9 [facility] Comment on above: Performed By: #### C MP, CBC ####[address] [address] [facility] Sodium [Moles/Vol] 137 mmol/L Normal 136-146 [facility] Comment on above: Performed By: #### C MP, CBC ####[address] [address] [facility] Urea nitrogen [Mass/Vol] 14 mg/dL Normal 9-23 [facility] Comment on above: Performed By: #### C MP, CBC ####[place] [address] [place] [address] [place] Dipstick and Microscopicon 0 11-04-2021 Appearance (U) Cloudy Critically abnormal Clear [facility] Comment on above: Order Comment: Name Collection Type:: Voided Performed By: #### G LULS #### Point of Care testing , Bacteria,Urine 4+ High None Seen [facility] Comment on above: Order Comment: Name Collection Type:: Voided Performed By: #### G LULS #### Point of Care testing , Bilirubin,Urine Negative Normal Negative [facility] Comment on above: Order Comment: Name Collection Type:: Voided Performed By: #### G LULS #### Point of Care testing , Color (U) Yellow Normal Yellow [facility] Comment on above: Order Comment: Name Collection Type:: Voided Performed By: #### G LULS #### Point of Care testing , Glucose Ql (U) Normal Normal Normal [facility] Comment on above: Order Comment: Name Collection Type:: Voided Performed By: #### G LULS #### Point of Care testing , Hyaline Casts,Urine Rare Normal 0-1 [facility] Comment on above: Order Comment: Name Collection Type:: Voided Performed By: #### G LULS #### Point of Care testing , Ketones Ql (U) 1+ High Negative [facility] Comment on above: Order Comment: Name Collection Type:: Voided Performed By: #### G LULS #### Point of Care testing , Leukocyte esterase Test strip Ql (U) 3+ High Negative [facility] Comment on above: Order Comment: Name Collection Type:: Voided Performed By: #### G LULS #### Point of Care testing , Nitrite,Urine Positive High Negative [facility] Comment on above: Order Comment: Name Collection Type:: Voided Performed By: #### G LULS #### Point of Care testing , Occult Blood,Urine 3+ High Negative [facility] Comment on above: Order Comment: Name Collection Type:: Voided Result Comment: PERF ORMED BY: [facility] [address] [place] [address] PATHOLOGIST BOOM CAT OPERATOR FLIP GERMAN M.D. Performed By: #### G LULS #### Point of Care testing , Other Casts,Urine None Seen Normal None Seen [facility] Comment on above: Order Comment: Name Collection Type:: Voided Result Comment: PERF ORMED BY: [facility] [place] [address] PATHOLOGIST BOOM CAT OPERATOR FLIP GERMAN M.D. Performed By: #### G LULS #### Point of Care testing , pH (U) 5.5 [pH] Normal 5.0-9.0 [facility] Comment on above: Order Comment: Name Collection Type:: Voided Performed By: #### G LULS #### Point of Care testing , Protein (U) [Mass/Vol] 30 mg/dL High Negative [facility] Comment on above: Order Comment: Name Collection Type:: Voided Performed By: #### G LULS #### Point of Care testing , RBC,Urine Innumerable High 04 [facility] Comment on above: Order Comment: Name Collection Type:: Voided Performed By: #### G LULS #### Point of Care testing , Specificy [place],Urine 1.029 Normal 1.001-1.[address] [facility] Comment on above: Order Comment: Name Collection Type:: Voided Performed By: #### G LULS #### Point of Care testing , Squamous Epithelial Cell,Urine 5-9 High 0-2 [facility] Comment on above: Order Comment: Name Collection Type:: Voided Performed By: #### G LULS #### Point of Care testing , Urobilinogen,Urine Normal Normal Normal [facility] Comment on above: Order Comment: Name Collection Type:: Voided Performed By: #### G LULS #### Point of Care testing , WBC,Urine 50-100 High 0-4 [facility] Comment on above: Order Comment: Name Collection Type:: Voided Performed By: #### G LULS #### Point of Care testing , Globulin Calc (S) [Mass/Vol] Ordered By: Marvin Peter on 11-04-2021 Globulin (S) [Mass/Vol] 3.7 g/dL [facility] Ketones Auto test strip (U) [Mass/Vol]Ordered By: Marvin Peter on 11-04-2021 Ketones (U) [Mass/Vol] 1+ Negative [facility] Nitrite Test strip Ql (U)Ord ered By: Marvin Peter on 11-04-2021 Nitrite Ql (U) Positive Negative [facility] No Panel InformationOrdered By: Enrrique Mota on 11-04-2021 25-Hydroxy Vitamin D Total 71.4 ng/mL 30-100 [facility] Comment on above: VITAMIN D STATUS 25( [place])VITAMIN D RANGE (ng/mL) Deficient <20 Insufficient 20 to <30 Sufficient 30 to 100 Reference: Earl MEDINA,Ken WILL, Yoandy PEDERSEN, et al. Evaluation,treatment, and prevention of vitamin D deficiency; an Endocrine Society clinical practice guideline. JCEM. 2010; 96(7):1911-30. VITAMIN D STATUS 25( [place])VITAMIN D RANGE (ng/mL) Deficient <20 Insufficient 20 to <30Sufficient 30 to 100Reference: Earl MEDINA,Ken WILL, Yoandy PEDERSEN, et al. Evaluation,treatment, and prevention of vitamin D deficiency; an Endocrine Society clinical practice guideline. JCEM. 2010; 96(7):1911-30. Protein Auto test strip (U) [Mass/Vol]Ordered By: Marvin Peter on 11-04-2021 Protein (U) [Mass/Vol] 30 mg/dL Negative [facility] Protein [Mass/volume] in Ser um or PlasmaOrdered By: Marvin Peter on 11-04-2021 Protein [Mass/Vol] 7.1 g/dL 6.1-7.9 [facility] Prothrombin Time INRon 11-04 INR Coag (PPP) [Relative time] 8.2 {INR} Off scale high [facility] Comment on above: Result Comment: [...] heart valves: 3 - 4.5 PERFORMED BY: [address] [place] [address] PATHOLOGIST BOOM CAT OPERATOR FLIP GERMAN M.D. Performed By: #### G LULS #### Point of Care testing , PT Coag (PPP) [Time] 96.2 s High 9.0-12.9 [facility] Comment on above: Performed By: #### G LULS #### Point of Care testing , Serum or plasma alanine engel otransferase measurement without P-5'-P (enzymatic activiOrdered By: Marvin Peter on 11-04-2021 ALT No additional P-5'-P [Catalytic activity/Vol] 7 U/L 10-60 [facility] Serum or plasma albumin/glob ulin mass ratioOrdered By: Marvin Peter on 11-04-2021 Albumin/Globulin [Mass ratio] 0.9 {ratio} [facility] Serum or plasma alkaline bouchra sphatase measurement (enzymatic activity/volume)Ordered By: Marvin Peter on 11-04-2021 ALP [Catalytic activity/Vol] 80 U/L 32-92 [facility] Serum or plasma aspartate am inotransferase measurement (enzymatic activity/volume)Ordered By: Marvin Peter on 11-04-2021 AST [Catalytic activity/Vol] 16 U/L 10-42 [facility] Serum or plasma total biliru bin measurement (mass/volume)Ordered By: Marvin Peter on 11-04-2021 Bilirubin [Mass/Vol] 1.2 mg/dL 0.3-1.2 [facility] Evita Ag Negativeon 11-05-19 22 Evita Ag Negative Negative Normal Negative [facility] Comment on above: Result Comment: This is a duplicate Evita SARS Antigen ([place]AMONT) result to be used for statistical tracking purpose only. PERFORMED BY: [facility] [address] [place] [address] PATHOLOGIST BOOM CAT OPERATOR FLIP GERMAN M.D. Performed By: #### G IAN #### Point of Care testing , Specific gravity Auto test s trip (U) [Rel density]Ordered By: Marvin Peter on 11-04-2021 Specific gravity (U) [Rel density] 1.029 1.001-1.[address] [facility] Squamous epithelial cells de tection in urine sediment by light microscopyOrdered By: Marvin Peter on 11-04-2021 Epithelial cells.squamous LM Ql (Urine sed) 5-9 [HPF] 0-2 [facility] TSH DL <= 0.005 mIU/L QnOrde red By: Enrrique Mota on 11-04-2021 TSH Qn 2.09 m[IU]/L 0.45-5.33 [facility] Thyroid Stimulating Hormoneo n 11-04-2021 TSH Qn 2.09 m[IU]/L Normal 0.45-5.33 [facility] Comment on above: Order Comment: Bobby nt addon Result Comment: PERF ORMED BY: [facility] [address] [place] [address] PATHOLOGIST BOOM CAT OPERATOR FLIP GERMAN M.D. Performed By: #### G IAN #### Point of Care testing , Urine Cultureon 11-04-2021 Bacteria identified Cx Nom (U) ORGANISM: Escherichia coli (O:ESCCOL) [place] Count >100,000 Aerobic JIMMY Charge (NUC86) SUSCEPTIBILITY [...] RESISTANT TO ALL B-LACTAM DRUGS. PERFORMED BY: [place] [address] [place] [address] PATHOLOGIST BOOM CAT OPERATOR FLIP GERMAN M.D. [facility] Comment on above: Performed By: #### G LULS #### Point of Care testing , Urine bacteria detection by automated methodOrdered By: Marvin Peter on 11-04-2021 Bacteria Auto Ql (U) 4+ None Seen [facility] Urine clarity by refractomet ry automatedOrdered By: Marvin Peter on 11-04-2021 Clarity Refractometry automated (U) Cloudy Clear [facility] Urine glucose measurement by automated test strip (mass/volume)Ordered By: Marvin Peter on 11-04-2021 Glucose Auto test strip (U) [Mass/Vol] Normal mg/dL Normal [facility] Urine hemoglobin detection b y automated test stripOrdered By: Marvin Peter on 11-04-2021 Hemoglobin Auto test strip Ql (U) 3+ Negative [facility] Urine leukocyte esterase det ection by automated test stripOrdered By: Marvin Peter on 11-04-2021 Leukocyte esterase Auto test strip Ql (U) 3+ Negative [facility] Urobilinogen Auto test strip (U) [Mass/Vol]Ordered By: Marvin Peter on 11-04-2021 Urobilinogen (U) [Mass/Vol] Normal mg/dL Normal [facility] Vitamin D 25 Hydroxy Totalon 11-04-2021 Vitamin D 25 Hydroxy Total 71.4 ng/mL Normal 30-100 [facility] Comment on above: Order Comment: Comme nt addon Result Comment: [place] MIN D STATUS 25([place])VITAMIN D RANGE (ng/mL) Deficient <20 Insufficient 20 to <30 Sufficient 30 to 100 Reference: Earl MF,Ken NC, Yoandy PEDERSEN, et al. Evaluation,treatment, and prevention of vitamin D deficiency; an Endocrine Society clinical practice guideline. JCEM. 2010; 96(7):1911-30. PERFORMED BY: [place] [address] PATHOLOGIST BOOM CAT OPERATOR FLIP GERMAN M.D. Performed By: #### V [id number] ####[facility] [id number] [place] [id number] [facility] pH Auto test strip (U)Ordere d By: Marvin Peter on 11-04-2021 pH (U) 5.5 [pH] 5.0-9.0 [facility] Prothrombin Time INRon 10-22 INR Coag (PPP) [Relative time] 4.5 {INR} [facility] [employer] Other Prothrombin Time INR [facility] Other CT head/brain wo conon 10-20 CT head/brain wo con [facility] [place] [address] [place] [address] CT Scan Report Signed Patient: Alton Barker MR#: [id number] : 1940 Acct:[id number] Age/Sex: 81 / F ADM Date: 10/19/21 Loc: ER Room: Type: [facility] ER Attending Dr: Copies to: Holger Dorado [...] Vijay Holden M.D.10/20/2021 8:09 AM Dictation Location: [place] [address] Transcribed By: [facility] 10/20/21 08 Dictated By: Vijay Holden II, MD 10/20/21805 Signed By: 10/20/[address] [facility] XR lumbar spine 2-3V*on XR lumbar spine 2-3V* [facility] [place] [address] [place] [address] XRay Report Signed Patient: Alton Barker MR#: [id number] : 1940 Acct:[id number] Age/Sex: 81 / F ADM Date: 10/19/21 Loc: ER Room: Type: [facility] ER Attending Dr: Copies to: Holger Dorado [...] Vijay Holden M.D.10/20/2021 8:11 AM Dictation Location: [place] [address] Transcribed By: [facility] 10/20/21810 Dictated By: Vijay Holden II, MD 10/20/21808 Signed By: 10/20/[address] [facility] Urine culture routineOrdered By: Sumanth Lowe on 09-30-2021 Bacteria identified Cx Nom (U) Escherichia coli [facility] Prothrombin Time INRon 09-29 INR Coag (PPP) [Relative time] 3.3 {INR} [facility] [employer] Other Prothrombin Time INR [facility] [employer] Other Automated erythrocytes count in urine sediment (number/area)Ordered By: Sumanth Lowe on 09-28-2021 RBC Auto (Urine sed) [#/Area] 10-19 [HPF] 0-4 [facility] Automated leukocytes count i n urine sediment (number/area)Ordered By: Sumanth Lowe on 09-28-2021 WBC Auto (Urine sed) [#/Area] 20-49 [HPF] 0-4 [facility] Basophils Auto (Bld) [#/Vol] Ordered By: Sumanth Lowe on 09-28-2021 Basophils (Bld) [#/Vol] 0.0 10*3/uL 0.0-0.2 [facility] Basophils/100 WBC Auto (Bld) Ordered By: Sumanth Lowe on 09-28-2021 Basophils/100 WBC (Bld) 0.4 % . [facility] Bilirubin Test strip Ql (U)O rdered By: Sumanth Lowe on 09-28-2021 Bilirubin Ql (U) Negative Negative [facility] Blood hemoglobin measurement (mass/volume)Ordered By: Sumanth Lowe on 09-28-2021 Hemoglobin (Bld) [Mass/Vol] 12.3 g/dL 11.8-15.4 [facility] Blood leukocytes automated c ount (number/volume)Ordered By: Sumanth Lowe on 09-28-2021 WBC (Bld) [#/Vol] 5.1 10*3/uL 4.5-11.0 [facility] Body fluid albumin measureme nt (mass/volume)Ordered By: Sumanth Lowe on 09-28-2021 Albumin (Body fld) [Mass/Vol] 3.3 g/dL 3.2-5.5 [facility] Color Auto (U)Ordered By: Giuseppe Lowe on 09-28-2021 Color (U) Yellow Yellow [facility] Complete Blood Count Auto Di ffon 09-28-2021 Basophils (Bld) [#/Vol] 0.0 10*3/uL Normal 0.0-0.2 [facility] Comment on above: Result Comment: PERF ORMED BY: [facility] [address] [place] [address] PATHOLOGIST BOOM CAT OPERATOR FLIP GERMAN M.D. Performed By: #### C CHEN, CMP ####[address] Basophils/100 WBC (Bld) 0.4 % Normal . [facility] Comment on above: Performed By: #### C CHEN, CMP ####[address] Eosinophils (Bld) [#/Vol] 0.0 10*3/uL Normal 0.0-0.45 [facility] Comment on above: Performed By: #### C CHEN, CMP ####[address] Eosinophils/100 WBC (Bld) 0.4 % Normal . [facility] Comment on above: Performed By: #### C BC, CMP ####[address] Erythrocyte distribution width (RBC) [Ratio] 15.9 % High 11.9-15.3 [facility] Comment on above: Performed By: #### C BC, CMP ####[address] Hematocrit (Bld) [Volume fraction] 37.5 % Normal 34.0-46.4 [facility] Comment on above: Performed By: #### C BC, CMP ####[address] Hemoglobin (Bld) [Mass/Vol] 12.3 g/dL Normal 11.8-15.4 [facility] Comment on above: Performed By: #### C BC, CMP ####[address] Lymphocytes (Bld) [#/Vol] 0.8 10*3/uL Low 1.00-4.8 [facility] Comment on above: Performed By: #### C BC, CMP ####[address] Lymphocytes/100 WBC (Bld) 16.2 % Normal . [facility] Comment on above: Performed By: #### C BC, CMP ####[address] MCH (RBC) [Entitic mass] 29.5 pg Normal 24.7-34.3 [facility] Comment on above: Performed By: #### C BC, CMP ####[address] MCV (RBC) [Entitic vol] 90.3 fL Normal 80-100 [facility] Comment on above: Performed By: #### C BC, CMP ####[address] Mean Corpuscular HGB Conc 32.7 g/dL Normal 32.0-35.0 [facility] Comment on above: Performed By: #### C BC, CMP ####[address] Monocytes (Bld) [#/Vol] 0.7 10*3/uL Normal 0.0-0.8 [facility] Comment on above: Performed By: #### C CHEN, CMP ####[address] [address] [facility] Monocytes/100 WBC (Bld) 13.9 % Normal . [facility] Comment on above: Performed By: #### C BC, CMP ####[place] [id number] [facility] Neutrophils (Bld) [#/Vol] 3.5 10*3/uL Normal 1.8-7.7 [facility] Comment on above: Performed By: #### C CHEN, CMP ####[place] [id number] [facility] Neutrophils/100 WBC (Bld) 69.1 % Normal . [facility] Comment on above: Performed By: #### C CHEN, CMP ####[place] [id number] [facility] Nucleated RBC/100 WBC (Bld) [Ratio] 0.0 % Normal 0-0.5 [facility] Comment on above: Performed By: #### C CHEN, CMP ####[place] [id number] [facility] Platelet mean volume (Bld) [Entitic vol] 8.6 fL Normal 6.3-10.7 [facility] Comment on above: Performed By: #### C CHEN, CMP ####[address] [address] [facility] Platelets (Bld) [#/Vol] 154 10*3/uL Normal 150-450 [facility] Comment on above: Performed By: #### C CHEN, CMP ####[address] [address] [facility] RBC (Bld) [#/Vol] 4.16 10*6/uL Normal 3.60-5.00 [facility] Comment on above: Performed By: #### C BC, CMP ####[place] [id number] [place] WBC (Bld) [#/Vol] 5.1 10*3/uL Normal 4.5-11.0 [facility] Comment on above: Performed By: #### C BC, CMP ####[address] [address] [facility] Comprehensive Metabolic Pane loco 09-28-2021 Albumin [Mass/Vol] 3.3 g/dL Normal 3.2-5.5 [facility] Comment on above: Performed By: #### C BC, CMP ####[place] [id number] [facility] Albumin/Globulin [Mass ratio] 0.9 {ratio} Normal [facility] Comment on above: Performed By: #### C BC, CMP ####[place] [id number] [facility] ALP [Catalytic activity/Vol] 51 U/L Normal 32-92 [facility] Comment on above: Performed By: #### C BC, CMP ####[place] [id number] [facility] ALT [Catalytic activity/Vol] 7 U/L Low 10-60 [facility] Comment on above: Performed By: #### C BC, CMP ####[place] [id number] [facility] AST [Catalytic activity/Vol] 20 U/L Normal 10-42 [facility] Comment on above: Performed By: #### C BC, CMP ####[place] [id number] [facility] Bilirubin [Mass/Vol] 1.0 mg/dL Normal 0.3-1.2 [facility] Comment on above: Performed By: #### C BC, CMP ####[place] [id number] [facility] Calcium [Mass/Vol] 8.9 mg/dL Normal 8.2-10.2 [facility] Comment on above: Performed By: #### C BC, CMP ####[place] [id number] [place] Chloride [Moles/Vol] 95 mmol/L Normal 95-114 [facility] Comment on above: Performed By: #### C BC, CMP ####[place] [address] [place] [address] [facility] CO2 [Moles/Vol] 29.5 mmol/L Normal 22.0-30.0 [facility] Comment on above: Performed By: #### C BC, CMP ####[place] [address] [place] [address] [facility] Creatinine [Mass/Vol] 0.67 mg/dL Normal 0.44-1.03 [facility] Comment on above: Performed By: #### C BC, CMP ####[place] [address] [place] [address] [facility] Creatinine Clr Calc Pharmacy 66.85 [facility] Comment on above: Result Comment: PERF ORMED BY: [facility] [address] [place] [id number] PATHOLOGIST BOOM CAT OPERATOR FLIP GERMAN M.D. Performed By: #### C BC, CMP ####[address] [address] [facility] Estimated GFR ( Trista > 60 [facility] Comment on above: Result Comment: GFR estimated reference range: According to KDOQI guidelines, <60 ml/min/1.73m2 is sufficient to diagnose a patient with chronic kidney disease. Performed By: #### C BC, CMP ####[place] [address] [place] [address] [facility] Estimated GFR (Non- Am > 60 [facility] Comment on above: Performed By: #### C BC, CMP ####[address] [address] [facility] Globulin (S) [Mass/Vol] 3.6 g/dL [facility] Comment on above: Performed By: #### C BC, CMP ####[place] [address] [place] [address] [facility] Glucose [Mass/Vol] 146 mg/dL High 70-100 [facility] Comment on above: Result Comment: [place] Glucose Reference Range is dependent on time and content of last meal. Glucose of more than 200 mg/dL in a nonstressed, ambulatory subject supports the diagnosis of Diabetes Mellitus. ADA recommended reference range Performed By: #### C BC, CMP ####[facility] [place] [address] [facility] Potassium [Moles/Vol] 3.5 mmol/L Normal 3.5-5.1 [facility] Comment on above: Performed By: #### C BC, CMP ####[facility] [place] [address] [facility] Protein [Mass/Vol] 6.9 g/dL Normal 6.1-7.9 [facility] Comment on above: Performed By: #### C BC, CMP ####[place] [address] [place] [address] [facility] Sodium [Moles/Vol] 136 mmol/L Normal 136-146 [facility] Comment on above: Performed By: #### C BC, CMP ####[facility] [place] [address] [facility] Urea nitrogen [Mass/Vol] 7 mg/dL Low 9-23 [facility] Comment on above: Performed By: #### C BC, CMP ####[facility] [place] [address] [facility] Creatinine and Glomerular fi ltration rate.predicted panel (S/P/Bld)Ordered By: Sumanth Lowe on 09-28-2021 Creatinine [Mass/Vol] 0.67 mg/dL 0.44-1.03 [facility] Dipstick and Microscopicon 0 09-28-2021 Appearance (U) Cloudy Critically abnormal Clear [facility] Comment on above: Order Comment: Name Collection Type:: Clean-Voided Midstream Performed By: #### G LULS #### Point of Care testing , Bacteria,Urine 3+ High None Seen [facility] Comment on above: Order Comment: Name Collection Type:: Clean-Voided Midstream Performed By: #### G LULS #### Point of Care testing , Bilirubin,Urine Negative Normal Negative [facility] Comment on above: Order Comment: Name Collection Type:: Clean-Voided Midstream Performed By: #### G LULS #### Point of Care testing , Color (U) Yellow Normal Yellow [facility] Comment on above: Order Comment: Name Collection Type:: Clean-Voided Midstream Performed By: #### G LULS #### Point of Care testing , Glucose Ql (U) Normal Normal Normal [facility] Comment on above: Order Comment: Name Collection Type:: Clean-Voided Midstream Performed By: #### G LULS #### Point of Care testing , Hyaline Casts,Urine 0-8 Normal 0-8 [facility] Comment on above: Order Comment: Name Collection Type:: Clean-Voided Midstream Performed By: #### G LULS #### Point of Care testing , Ketones Ql (U) 2+ High Negative [facility] Comment on above: Order Comment: Name Collection Type:: Clean-Voided Midstream Performed By: #### G LULS #### Point of Care testing , Leukocyte esterase Test strip Ql (U) 2+ High Negative [facility] Comment on above: Order Comment: Name Collection Type:: Clean-Voided Midstream Performed By: #### G LULS #### Point of Care testing , Nitrite,Urine Positive High Negative [facility] Comment on above: Order Comment: Name Collection Type:: Clean-Voided Midstream Performed By: #### G LULS #### Point of Care testing , Occult Blood,Urine 2+ High Negative [facility] Comment on above: Order Comment: Name Collection Type:: Clean-Voided Midstream Result Comment: PERF ORMED BY: [facility] [address] [place] [address] PATHOLOGIST BOOM CAT OPERATOR FLIP GERMAN M.D. Performed By: #### G LULS #### Point of Care testing , pH (U) 6.5 [pH] Normal 5.0-9.0 [facility] Comment on above: Order Comment: Name Collection Type:: Clean-Voided Midstream Performed By: #### G LULS #### Point of Care testing , Protein,Urine Negative Normal Negative [facility] Comment on above: Order Comment: Name Collection Type:: Clean-Voided Midstream Performed By: #### G LULS #### Point of Care testing , RBC,Urine 10-19 High 0-4 [facility] Comment on above: Order Comment: Name Collection Type:: Clean-Voided Midstream Performed By: #### G LULS #### Point of Care testing , Specificy [place],Urine 1.013 Normal 1.001-1.[address] [facility] Comment on above: Order Comment: Name Collection Type:: Clean-Voided Midstream Performed By: #### G LULS #### Point of Care testing , Squamous Epithelial Cell,Urine None Seen Normal 0-2 [facility] Comment on above: Order Comment: Name Collection Type:: Clean-Voided Midstream Performed By: #### G LULS #### Point of Care testing , Urobilinogen,Urine Normal Normal Normal [facility] Comment on above: Order Comment: Name Collection Type:: Clean-Voided Midstream Performed By: #### G LULS #### Point of Care testing , WBC,Urine 20-49 High 0-4 [facility] Comment on above: Order Comment: Name Collection Type:: Clean-Voided Midstream Performed By: #### G LULS #### Point of Care testing , Yeast,Urine None Seen Normal None Seen [facility] Comment on above: Order Comment: Name Collection Type:: Clean-Voided Midstream Result Comment: PERF ORMED BY: [place] [address] PATHOLOGIST BOOM CAT OPERATOR FLIP GERMAN M.D. Performed By: #### G LULS #### Point of Care testing , ECG 12 lead ECGon 09-28-2021 ECG 12 lead ECG [facility] [place] [address] Electrocardiograph Report Signed Patient: Alton Barker MR#: [id number] 987 : 1940 Acct:[id number] Age/Sex: 81 / F ADM Date: 09/27/21 Loc: ER Room: Type: [facility] ER Attending Dr: Ordering Provider: Sumanth Lowe [...] Signed By Sumanth Lowe DO [address] [facility] Eosinophils Auto (Bld) [#/Vo l]Ordered By: Sumanth Lowe on 09-28-2021 Eosinophils (Bld) [#/Vol] 0.0 10*3/uL 0.0-0.45 [facility] Eosinophils/100 WBC Auto (Bl d)Ordered By: Sumanth Lowe on 09-28-2021 Eosinophils/100 WBC (Bld) 0.4 % . [facility] Erythrocyte distribution wid th Auto (RBC) [Ratio]Ordered By: Sumanth Loew on 09-28-2021 Erythrocyte distribution width (RBC) [Ratio] 15.9 % 11.9-15.3 [facility] Estimated glomerular filtrat ion rate (GFR) non- AmericanOrdered By: Sumanth Lowe on 09-28-2021 GFR/1.73 sq M.predicted among non-blacks MDRD (S/P/Bld) [Vol rate/Area] > 60 mL/Min [facility] Globulin Calc (S) [Mass/Vol] Ordered By: Sumanth Lowe on 09-28-2021 Globulin (S) [Mass/Vol] 3.6 g/dL [facility] Hematocrit Auto (Bld) [Volum e fraction]Ordered By: Sumanth Lowe on 09-28-2021 Hematocrit (Bld) [Volume fraction] 37.5 % 34.0-46.4 [facility] Ketones Auto test strip (U) [Mass/Vol]Ordered By: Sumanth Lowe on 09-28-2021 Ketones (U) [Mass/Vol] 2+ Negative [facility] Laboratory - Hematology and Cell countsOrdered By: Sumanth Lowe on 09-28-2021 Nucleated RBC/100 WBC (Bld) [Ratio] 0.0 % 0-0.5 [facility] Laboratory - UrinalysisOrder ed By: Sumanth Lowe on 09-28-2021 Hyaline casts LM Ql (Urine sed) 0-8 [LPF] 0-8 [facility] Lymphocytes Auto (Bld) [#/Vo l]Ordered By: Sumanth Lowe on 09-28-2021 Lymphocytes (Bld) [#/Vol] 0.8 10*3/uL 1.00-4.8 [facility] Lymphocytes/100 WBC Auto (Bl d)Ordered By: Sumanth Lowe on 09-28-2021 Lymphocytes/100 WBC (Bld) 16.2 % . [facility] MCH Auto (RBC) [Entitic mass ]Ordered By: Sumanth Lowe on 09-28-2021 MCH (RBC) [Entitic mass] 29.5 pg 24.7-34.3 [facility] MCHC Auto (RBC) [Mass/Vol]Or dered By: Sumanth Lowe on 09-28-2021 MCHC (RBC) [Mass/Vol] 32.7 g/dL 32.0-35.0 [facility] MCV Auto (RBC) [Entitic vol] Ordered By: Sumanth Lowe on 09-28-2021 MCV (RBC) [Entitic vol] 90.3 fL 80-100 [facility] Monocytes Auto (Bld) [#/Vol] Ordered By: Sumanth Lowe on 09-28-2021 Monocytes (Bld) [#/Vol] 0.7 10*3/uL 0.0-0.8 [facility] Monocytes/100 WBC Auto (Bld) Ordered By: Sumanth Lowe on 09-28-2021 Monocytes/100 WBC (Bld) 13.9 % . [facility] Neutrophils Auto (Bld) [#/Vo l]Ordered By: Sumanth Lowe on 09-28-2021 Neutrophils (Bld) [#/Vol] 3.5 10*3/uL 1.8-7.7 [facility] Neutrophils/100 WBC Auto (Bl d)Ordered By: Sumanth Lowe on 09-28-2021 Neutrophils/100 WBC (Bld) 69.1 % . [facility] Nitrite Test strip Ql (U)Ord ered By: Sumanth Lowe on 09-28-2021 Nitrite Ql (U) Positive Negative [facility] No Panel InformationOrdered By: Sumanth Lowe on 09-28-2021 Estimated GFR () > 60 mL/Min [facility] Comment on above: GFR estimated refere nce range: According to KDOQI guidelines, <60 ml/min/1.73m2 is sufficient to diagnose a patient with chronic kidney disease. Pharmacy Creatinine Clearance (Chem 66.85 [facility] Platelet mean volume Auto (B ld) [Entitic vol]Ordered By: Sumanth Lowe on 09-28-2021 Platelet mean volume (Bld) [Entitic vol] 8.6 fL 6.3-10.7 [facility] Platelets Auto (Bld) [#/Vol] Ordered By: Sumanth Lowe on 09-28-2021 Platelets (Bld) [#/Vol] 154 10*3/uL 150-450 [facility] Protein Auto test strip (U) [Mass/Vol]Ordered By: Sumanth Lowe on 09-28-2021 Protein (U) [Mass/Vol] Negative Negative [facility] Protein [Mass/volume] in Ser um or PlasmaOrdered By: Sumanth Lowe on 09-28-2021 Protein [Mass/Vol] 6.9 g/dL 6.1-7.9 [facility] RBC Auto (Bld) [#/Vol]Ordere d By: Sumanth Lowe on 09-28-2021 RBC (Bld) [#/Vol] 4.16 10*6/uL 3.60-5.00 [facility] Serum or plasma alanine engel otransferase measurement without P-5'-P (enzymatic activiOrdered By: Sumanth Lowe on 09-28-2021 ALT No additional P-5'-P [Catalytic activity/Vol] 7 U/L 10-60 [facility] Serum or plasma albumin/glob ulin mass ratioOrdered By: Sumanth Lowe on 09-28-2021 Albumin/Globulin [Mass ratio] 0.9 {ratio} [facility] Serum or plasma alkaline bouchra sphatase measurement (enzymatic activity/volume)Ordered By: Sumanth Lowe on 09-28-2021 ALP [Catalytic activity/Vol] 51 U/L 32-92 [facility] Serum or plasma aspartate am inotransferase measurement (enzymatic activity/volume)Ordered By: Sumanth Lowe on 09-28-2021 AST [Catalytic activity/Vol] 20 U/L 10-42 [facility] Serum or plasma calcium alondra urement (mass/volume)Ordered By: Sumanth Lowe on 09-28-2021 Calcium [Mass/Vol] 8.9 mg/dL 8.2-10.2 [facility] Serum or plasma chloride link surement (moles/volume)Ordered By: Sumanth Lowe on 09-28-2021 Chloride [Moles/Vol] 95 mmol/L 95-114 [facility] Serum or plasma glucose alondra urement (mass/volume)Ordered By: Sumanth Lowe on 09-28-2021 Glucose [Mass/Vol] 146 mg/dL 70-100 [facility] Comment on above: ADA recommended refe rence range Random Glucose Reference Range is dependent on time and content of last meal. Glucose of more than 200 mg/dL in a nonstressed, ambulatory subject supports the diagnosis of Diabetes Mellitus. Serum or plasma potassium me asurement (moles/volume)Ordered By: Sumanth Lowe on 09-28-2021 Potassium [Moles/Vol] 3.5 mmol/L 3.5-5.1 [facility] Serum or plasma sodium measu rement (moles/volume)Ordered By: Sumanth Lowe on 09-28-2021 Sodium [Moles/Vol] 136 mmol/L 136-146 [facility] Serum or plasma total biliru bin measurement (mass/volume)Ordered By: Sumanth Lowe on 09-28-2021 Bilirubin [Mass/Vol] 1.0 mg/dL 0.3-1.2 [facility] Serum or plasma total carbon dioxide measurement (moles/volume)Ordered By: Sumanth Lowe on 09-28-2021 CO2 [Moles/Vol] 29.5 mmol/L 22.0-30.0 [facility] Serum or plasma urea nitroge n measurement (mass/volume)Ordered By: Sumanth Lowe on 09-28-2021 Urea nitrogen [Mass/Vol] 7 mg/dL 9-23 [facility] Specific gravity Auto test s trip (U) [Rel density]Ordered By: Sumanth Lowe on 09-28-2021 Specific gravity (U) [Rel density] 1.013 1.001-1.[address] [facility] Squamous epithelial cells de tection in urine sediment by light microscopyOrdered By: Sumanth Lavelle on 09-28-2021 Epithelial cells.squamous LM Ql (Urine sed) None seen [HPF] 0-2 [facility] Urine Cultureon 09-28-2021 Bacteria identified Cx Nom (U) ORGANISM: Escherichia coli (O:ESCCOL) [place] Count >100,000 Aerobic JIMMY Charge (NUC86) SUSCEPTIBILITY [...] RESISTANT TO ALL B-LACTAM DRUGS. PERFORMED BY: [place] [id number] PATHOLOGIST BOOM CAT OPERATOR FLIP GERMAN M.D. Normal [facility] Comment on above: Performed By: #### G LULS #### Point of Care testing , Urine bacteria detection by automated methodOrdered By: Sumanth Lowe on 09-28-2021 Bacteria Auto Ql (U) 3+ None Seen [facility] Urine clarity by refractomet ry automatedOrdered By: Sumanth Lowe on 09-28-2021 Clarity Refractometry automated (U) Cloudy Clear [facility] Urine glucose measurement by automated test strip (mass/volume)Ordered By: Sumanth Lowe on 09-28-2021 Glucose Auto test strip (U) [Mass/Vol] Normal mg/dL Normal [facility] Urine hemoglobin detection b y automated test stripOrdered By: Sumanth Lowe on 09-28-2021 Hemoglobin Auto test strip Ql (U) 2+ Negative [facility] Urine leukocyte esterase det ection by automated test stripOrdered By: Sumanth Lowe on 09-28-2021 Leukocyte esterase Auto test strip Ql (U) 2+ Negative [facility] Urobilinogen Auto test strip (U) [Mass/Vol]Ordered By: Sumanth Lowe on 09-28-2021 Urobilinogen (U) [Mass/Vol] Normal mg/dL Normal [facility] XR chest 2V*on 09-28-2021 XR chest 2V* [facility] [address] [address] XRay Report Signed Patient: Alton Barker MR#: [id number] 987 : 1940 Acct:[id number] Age/Sex: 81 / F ADM Date: 09/27/21 Loc: ER Room: Type: [facility] ER Attending Dr: Copies to: Sumanth Lowe [...] SEEN. Impression dictated by: Alcides Malin Jr., DJoannOJoann09/28/2021 9:27 AM Dictation Location: [place] [address] Transcribed By: [facility] 09/28/21926 Dictated By: Alcides Malin Jr, DO 09/28/21926 Signed By: 09/28/[address] [facility] Yeast detection in urine sed iment by light microscopyOrdered By: Sumanth Lowe on 09-28-2021 Yeast LM Ql (Urine sed) None seen [HPF] None Se[address] [facility] pH Auto test strip (U)Ordere d By: Sumanth Lowe on 09-28-2021 pH (U) 6.5 [pH] 5.0-9.0 [facility] Prothrombin Time INRon 08-26 INR Coag (PPP) [Relative time] 2.1 {INR} [email or web address] Other Prothrombin Time INR [facility] [employer] Other Prothrombin Time INRon 08-05 INR Coag (PPP) [Relative time] 2.3 {INR} [email or web address] Other Prothrombin Time INR [facility] [employer] Other Complete Blood Count with Au to Diffon 07-16-2021 Basophils (Bld) [#/Vol] 0.02 10*3/uL Normal 0.00-0.20 [facility] Sales Representative [employer] Comment on above: Performed By: #### L IPD, TSH, CMP, VITD, CBCAD #### [facility] [address] [place], [place] [id number] Basophils/100 WBC (Bld) 0.3 % Normal [facility] Sales Representative [employer] Comment on above: Performed By: #### L IPD, TSH, CMP, VITD, CBCAD #### [facility] [address] [place], [place] [id number] Eosinophils (Bld) [#/Vol] 0.17 10*3/uL Normal 0.02-0.50 [facility] Specialist Comment on above: Performed By: #### L IPD, TSH, CMP, VITD, CBCAD #### [facility] [address] [place], [place] [id number] Eosinophils/100 WBC (Bld) 2.8 % Normal [facility] Specialist Comment on above: Performed By: #### L IPD, TSH, CMP, VITD, CBCAD #### [facility] [address] [place], [place] [id number] Erythrocyte distribution width (RBC) [Ratio] 15.0 % Normal 11.0-15.0 [facility] Sales Representative [employer] Comment on above: Performed By: #### L IPD, TSH, CMP, VITD, CBCAD #### [facility] [address] [place], [place] [id number] Hematocrit (Bld) [Volume fraction] 39.2 % Normal 35.0-47.0 [facility] Specialist Comment on above: Performed By: #### L IPD, TSH, CMP, VITD, CBCAD #### [facility] [address] [place], [place] [id number] Hemoglobin (Bld) [Mass/Vol] 12.0 g/dL Normal 11.6-15.5 [facility] Sales Representative [employer] Comment on above: Performed By: #### L IPD, TSH, CMP, VITD, CBCAD #### [facility] [address] [place], [place] [id number] Lymphocytes (Bld) [#/Vol] 1.7 10*3/uL Normal 0.9-3.9 [facility] Specialist Comment on above: Performed By: #### L IPD, TSH, CMP, VITD, CBCAD #### [facility] [address] [place], [place] [id number] Lymphocytes/100 WBC (Bld) 27.5 % Normal [facility] Specialist Comment on above: Performed By: #### L IPD, TSH, CMP, VITD, CBCAD #### [facility] [address] [place], [place] [id number] MCH (RBC) [Entitic mass] 29.4 pg Normal 27.0-33.[address] [facility] Comment on above: Performed By: #### L IPD, TSH, CMP, VITD, CBCAD #### [facility] [address] [place], [place] [id number] MCHC (RBC) [Mass/Vol] 30.6 g/dL Low 32.0-36.0 [facility] Comment on above: Performed By: #### L IPD, TSH, CMP, VITD, CBCAD #### [facility] [address] [place], [place] [id number] MCV (RBC) [Entitic vol] 96 fL Normal 80-[address] [facility] Comment on above: Performed By: #### L IPD, TSH, CMP, VITD, CBCAD #### [facility] [address] [place], [place] [id number] Monocytes (Bld) [#/Vol] 0.6 10*3/uL Normal 0.2-0.[address] [facility] Comment on above: Performed By: #### L IPD, TSH, CMP, VITD, CBCAD #### [facility] [address] [place], [place] [id number] Monocytes/100 WBC (Bld) 10.5 % Normal [facility] Comment on above: Performed By: #### L IPD, TSH, CMP, VITD, CBCAD #### [facility] [address] [place], [place] [id number] Neutrophils (Bld) [#/Vol] 3.6 10*3/uL Normal 1.5-7.[address] [facility] Comment on above: Performed By: #### L IPD, TSH, CMP, VITD, CBCAD #### [facility] [address] [place], [place] [id number] Neutrophils/100 WBC (Bld) 58.6 % Normal [facility] Comment on above: Performed By: #### L IPD, TSH, CMP, VITD, CBCAD #### [facility] [address] [place], [place] [id number] Platelet mean volume (Bld) [Entitic vol] 11.40 fL Normal 7.50-12.50 [facility] Specialist Comment on above: Performed By: #### L IPD, TSH, CMP, VITD, CBCAD #### [facility] [address] [place], [place] [id number] Platelets (Bld) [#/Vol] 193 10*3/uL Normal 140-400 [facility] Specialist Comment on above: Performed By: #### L IPD, TSH, CMP, VITD, CBCAD #### [facility] [address] [place], [place] [id number] RBC (Bld) [#/Vol] 4.08 10*6/uL Normal 3.90-5.20 [facility] Specialist Comment on above: Performed By: #### L IPD, TSH, CMP, VITD, CBCAD #### [facility] [address] [place], [place] [id number] RDW-SD 52.8 fL High 37.0-50.0 [facility] Specialist Comment on above: Performed By: #### L IPD, TSH, CMP, VITD, CBCAD #### [facility] [address] [place], [place] [id number] WBC (Bld) [#/Vol] 6.1 10*3/uL Normal 3.8-11.0 [facility] Sales Representative [employer] Comment on above: Performed By: #### L IPD, TSH, CMP, VITD, CBCAD #### [facility] [address] [place], [place] [id number] Comprehensive Metabolic Pane [facility] 07-16-2021 Albumin [Mass/Vol] 4.1 g/dL Normal 3.6-5.1 [facility] Sales Representative [employer] Comment on above: Performed By: #### L IPD, TSH, CMP, VITD, CBCAD #### [facility] [address] [place], [place] [id number] Albumin/Globulin [Mass ratio] 1.5 {ratio} Normal 1.0-2.5 [facility] Specialist Comment on above: Performed By: #### L IPD, TSH, CMP, VITD, CBCAD #### [facility] [address] [place], [place] [id number] ALP [Catalytic activity/Vol] 104 U/L Normal 35-[address] [facility] Comment on above: Performed By: #### L IPD, TSH, CMP, VITD, CBCAD #### [facility] [address] [place], [place] [id number] ALT [Catalytic activity/Vol] 7 U/L Normal 6-[address] [facility] Comment on above: Result Comment: 02/11 Female reference range changed. Performed By: #### L IPD, TSH, CMP, VITD, CBCAD #### [facility] [address] [place], [place] [id number] Anion gap [Moles/Vol] 18 mmol/L Normal 12-20 [facility] Comment on above: Result Comment: Effe ctive 03/19/2019 reference range changed. Performed By: #### L IPD, TSH, CMP, VITD, CBCAD #### [facility] [address] [place], [place] [id number] AST [Catalytic activity/Vol] 16 U/L Normal 9-[address] [facility] Comment on above: Performed By: #### L IPD, TSH, CMP, VITD, CBCAD #### [facility] [address] [place], [place] [id number] Bilirubin [Mass/Vol] 0.92 mg/dL Normal 0.30-1.20 [facility] Comment on above: Performed By: #### L IPD, TSH, CMP, VITD, CBCAD #### [facility] [address] [place], [place] [id number] BUN/CREA 29 Ratio High 6-[address] [facility] Comment on above: Performed By: #### L IPD, TSH, CMP, VITD, CBCAD #### [facility] [address] [place], [place] [id number] Calcium [Mass/Vol] 9.5 mg/dL Normal 8.6-10.2 [facility] Comment on above: Performed By: #### L IPD, TSH, CMP, VITD, CBCAD #### [facility] [address] [place], [place] [id number] Chloride [Moles/Vol] 99 mmol/L Normal 98-107 [place] Sales Representative [employer] Comment on above: Performed By: #### L IPD, TSH, CMP, VITD, CBCAD #### [facility] [address] [place], [place] [id number] CO2 [Moles/Vol] 26 mmol/L Normal 20-[address] [facility] Comment on above: Performed By: #### L IPD, TSH, CMP, VITD, CBCAD #### [facility] [address] [place], [place] [id number] Creatinine [Mass/Vol] 0.5 mg/dL Low 0.6-1.4 [facility] Comment on above: Performed By: #### L IPD, TSH, CMP, VITD, CBCAD #### [facility] [address] [place], [place] [id number] eGFRAA 135 mL/min/1.73m2 Normal >60 [facility] Specialist Comment on above: Performed By: #### L IPD, TSH, CMP, VITD, CBCAD #### [facility] [address] [place], [place] [id number] eGFRNAA 111 mL/min/1.73m2 Normal >60 [facility] Comment on above: Performed By: #### L IPD, TSH, CMP, VITD, CBCAD #### [facility] [address] [place], [place] [id number] Globulin (S) [Mass/Vol] 2.7 g/dL Normal 1.9-3.7 [facility] Specialist Comment on above: Performed By: #### L IPD, TSH, CMP, VITD, CBCAD #### [facility] [address] [place], [place] [id number] Glucose [Mass/Vol] 222 mg/dL High 65-99 [facility] Specialist Comment on above: Result Comment: For FASTING Glucose --- ADA reference ranges: Normal 65-99 mg/dl Prediabetes 100-125 Diabetes >/= 126 Performed By: #### L IPD, TSH, CMP, VITD, CBCAD #### [facility] [address] [place], [place] [id number] Potassium [Moles/Vol] 4.7 mmol/L Normal 3.5-5.5 [facility] Specialist Comment on above: Performed By: #### L IPD, TSH, CMP, VITD, CBCAD #### [facility] [address] [place], [place] [id number] Protein [Mass/Vol] 6.8 g/dL Normal 6.1-8.1 [place] Sales Representative [employer] Comment on above: Performed By: #### L IPD, TSH, CMP, VITD, CBCAD #### [facility] [address] [place], [place] [id number] Sodium [Moles/Vol] 138 mmol/L Normal 135-146 Marcia rn [place] Sales Representative [employer] Comment on above: Performed By: #### L IPD, TSH, CMP, VITD, CBCAD #### [facility] [address] [place], [place] [id number] Urea nitrogen [Mass/Vol] 15 mg/dL Normal 7-25 [facility] Sales Representative [employer] Comment on above: Performed By: #### L IPD, TSH, CMP, VITD, CBCAD #### [facility] [address] [place], [place] [id number] Hemoglobin A1Con 07-16-2021 EAG 194.38 Normal [facility] Specialist Comment on above: Performed By: #### A 1C #### [facility] [address] [place], [place] [id number] HbA1c (Bld) [Mass fraction] 8.4 % High 4.0-6.0 [facility] Sales Representative [employer] Comment on above: Performed By: #### A 1C #### [facility] [address] [place], [place] [id number] Lipid Panelon 07-16-2021 Cholesterol [Mass/Vol] 172 mg/dL Normal 125-200 [facility] Sales Representative [employer] Comment on above: Result Comment: Low risk < 200mg/dL Borderline risk 201-239 mg/dl High risk > or equal to 240 Performed By: #### L IPD, TSH, CMP, VITD, CBCAD #### [facility] [address] [place], [place] [id number] Cholesterol in HDL [Mass/Vol] 57 mg/dL Normal >40 [facility] Sales Representative [employer] Comment on above: Result Comment: High Cardiovascular Risk HDL <40 mg/dL Low Cardiovascular Risk HDL > or equal to 60 mg/dl Performed By: #### L IPD, TSH, CMP, VITD, CBCAD #### [facility] [address] [place], [place] [id number] Cholesterol in LDL [Mass/Vol] 88 mg/dL Normal [facility] Specialist Comment on above: Result Comment: LDL ATP III CLASSIFICATION LDL less than 100 mg/dl Optimal LDL 100-129 mg/dl Near or above optimal LDL 130-159 Borderline high LDL 160-189 High LDL greater than 189 mg/dl Very High Performed By: #### L IPD, TSH, CMP, VITD, CBCAD #### [facility] [address] [place], [place] [id number] Cholesterol in VLDL [Mass/Vol] 27 mg/dL Normal [facility] Specialist Comment on above: Performed By: #### L IPD, TSH, CMP, VITD, CBCAD #### [facility] [address] [place], [place] [id number] Cholesterol.total/Cho lesterol in HDL [Mass ratio] 3 {ratio} Normal [facility] Specialist Comment on above: Performed By: #### L IPD, TSH, CMP, VITD, CBCAD #### [facility] [address] [place], [place] [id number] Triglyceride [Mass/Vol] 133 mg/dL Normal 30-150 [facility] Sales Representative [employer] Comment on above: Result Comment: TRIG ATPIII CLASSIFICATIONS TRIG less than 150 mg/dl Normal TRIG 150-199 mg/dl Borderline High TRIG 200-500 mg/dl High TRIG greather than 500 mg/dl Very High Performed By: #### L IPD, TSH, CMP, VITD, CBCAD #### [facility] [address], [place] [id number] TSHon 07-16-2021 TSH 1.480 uIU/mL Normal 0.400-4.50 0 [facility] Specialist Comment on above: Performed By: #### L IPD, TSH, CMP, VITD, CBCAD #### [facility] [address], [place] [id number] Vitamin B12on 07-16-2021 Cobalamin (Vitamin B12) [Mass/Vol] 1009 pg/mL High 211-946 [facility] Specialist Comment on above: Performed By: #### B 12 #### [facility] [address] [place], [place] [id number] Vitamin D 25-OHon 07-16-2021 VIT D 25 [place] 56 ng/ml Normal >29 [facility] Sales Representative Livestock Comment on above: Result Comment: Frederic min D Status Deficiency <20 ng/mL Insufficiency 20-29 ng/mL Optimal 30-100 ng/mL Possible Toxicity >=150 ng/mL Performed By: #### L IPD, TSH, CMP, VITD, CBCAD #### [facility] [address] [facility] [place] [id number] Prothrombin Time INRon 06-10 INR Coag (PPP) [Relative time] 5.2 {INR} [email or web address] Other Prothrombin Time INR [employer] Other Prothrombin Time INRon 05-26 INR Coag (PPP) [Relative time] 3.9 {INR} [email or web address] Other Prothrombin Time INR [employer] Other Prothrombin Time INRon 03-25 INR Coag (PPP) [Relative time] 3.2 {INR} [email or web address] Other Prothrombin Time INR [employer] Other Prothrombin Time INRon 02-25 INR Coag (PPP) [Relative time] 1.9 {INR} [email or web address] Other Prothrombin Time INR [employer] Other Prothrombin Time INRon 01-28 INR Coag (PPP) [Relative time] 2.2 {INR} [email or web address] Other Prothrombin Time INR [employer] Other Prothrombin Time INRon 12-10 INR Coag (PPP) [Relative time] 2.4 {INR} [email or web address] Other Prothrombin Time INR [employer] Other Office Visit (Neuro-Movement -PD)on 11-01-2017 Office Visit (Meekx-Ssppvbwi-SV) History of Present IllnessALTON BARKER is here [...] asleep and no acting out of dreams. [facility] Sleepiness Scale is 14. She reports concern [...] MG Oral Tablet Vitals Vital Signs Recorded: [id number] 01:33PMHeart Udsy13Pnsudrsi777, GDKOxtplzbnq66, GSOJiojel553 lb 1 ozBMI Beapgbhezg21.59BSA Calculated2.27 Physical ExamConstitutional: General appearance: no acute [...] disease; KISHOR = N; Verified Transmission to [facility] 0140; Last Updated By: SystemAffinio; 10/26/2017 2:12:16 PM Provider ImpressionsShe is a right-handed 77 year-old woman with [...] and treatment options. 25 minutes was spent iuff-ok-[id number] in the visit. Patient Discussion/SummaryI am recommending starting Sinemet 0.5 tablets three times daily for 1 week with meals and then increase the first dose to 1 tablet. Follow up in 3 months. Signatures Electronically signed by : Tyree Perez MD; Nov 01 2017 8:36AM EST (Author) Normal Touchworks Vital Signs Date Time Vital Sign Value Performing Clinician Génesis fish 06-23-2023 14:53-0400 Body height 167.6 cm Gloria Perez INTERNAL COMBUSTION ENGINE INSPECTOR.DIGITAL IMAGING SPECIALIST Work Phone: [facility] 06-23-2023 14:53-0400 Body weight 107.6 kg Gloria Perez INTERNAL COMBUSTION ENGINE INSPECTOR.DIGITAL IMAGING SPECIALIST Work Phone: [facility] 06-23-2023 14:53-0400 SaO2% (BldA) [Mass fraction] 99 % Gloria Perez INTERNAL COMBUSTION ENGINE INSPECTOR.DIGITAL IMAGING SPECIALIST Work Phone: [facility] 01-20-2023 14:52-0500 Body height 167.6 cm Gloria Perez INTERNAL COMBUSTION ENGINE INSPECTOR.DIGITAL IMAGING SPECIALIST Work Phone: [facility] 01-20-2023 14:52-0500 SaO2% (BldA) [Mass fraction] 98 % Gloria Perez INTERNAL COMBUSTION ENGINE INSPECTOR.DIGITAL IMAGING SPECIALIST Work Phone: [facility] 07-08-2022 14:54-0400 Body height 167.6 cm Gloria Perez INTERNAL COMBUSTION ENGINE INSPECTOR.DIGITAL IMAGING SPECIALIST Work Phone: [facility] 07-08-2022 14:54-0400 Body weight 85.14 kg Gloria Perez INTERNAL COMBUSTION ENGINE INSPECTOR.DIGITAL IMAGING SPECIALIST Work Phone: [facility] 07-08-2022 14:54-0400 SaO2% (BldA) [Mass fraction] 98 % Gloria Perez INTERNAL COMBUSTION ENGINE INSPECTOR.DIGITAL IMAGING SPECIALIST Work Phone: [facility] 05-20-2022 09:30-0500 Diastolic blood pressure 60 mm[Hg] DO Honey Rabago Work Phone: [facility] 05-20-2022 09:30-0500 Heart rate 89 /min DO Honey Rabago Work Phone: [facility] 05-20-2022 09:30-0500 Systolic blood pressure 106 mm[Hg] DO Honey Rabago Work Phone: [facility] 11-25-2021 16:00-0400 Body temperature 97.4 [degF] DO Honey Vaschak Work Phone: [facility] 11-25-2021 16:00-0400 Diastolic blood pressure 61 mm[Hg] DO Honey Vaschak Work Phone: [facility] 11-25-2021 16:00-0400 Heart rate 98 /min DO Honey Mukulk Work Phone: [facility] 11-25-2021 16:00-0400 Respiratory rate 16 /min DO Honey Mukulk Work Phone: [facility] 11-25-2021 16:00-0400 SaO2% (BldA) [Mass fraction] 98 % DO Honey Danilochak Work Phone: [facility] 11-25-2021 16:00-0400 Systolic blood pressure 96 mm[Hg] DO Honey Mukulk Work Phone: [facility] 11-24-2021 12:10-0400 Body height 167.64 cm DO Honey Hima Work Phone: [facility] 11-22-2021 06:00-0400 Body weight 92.8 kg DO Honey Mukulk Work Phone: [facility] 11-13-2021 21:44-0400 Body temperature 98.1 [degF] DO Honey Mukulk Work Phone: [facility] 11-13-2021 21:44-0400 Diastolic blood pressure 71 mm[Hg] DO Honey Mukulk Work Phone: [facility] 11-13-2021 21:44-0400 Heart rate 92 /min DO Honey Mukulk Work Phone: [facility] 11-13-2021 21:44-0400 Respiratory rate 18 /min DO Honey Mukulk Work Phone: [facility] 11-13-2021 21:44-0400 SaO2% (BldA) [Mass fraction] 98 % DO Honey Vaschak Work Phone: [facility] 11-13-2021 21:44-0400 Systolic blood pressure 112 mm[Hg] DO Honey Vaschak Work Phone: [facility] 11-12-2021 16:00-0400 Body temperature 97.6 [degF] DO Honey Danilochak Work Phone: [facility] 11-12-2021 16:00-0400 Diastolic blood pressure 63 mm[Hg] DO Honey Danilochak Work Phone: [facility] 11-12-2021 16:00-0400 Heart rate 96 /min DO Honey Mukulk Work Phone: [facility] 11-12-2021 16:00-0400 Respiratory rate 16 /min DO Honey Mukulk Work Phone: [facility] 11-12-2021 16:00-0400 SaO2% (BldA) [Mass fraction] 98 % DO Honey Danilochak Work Phone: [facility] 11-12-2021 16:00-0400 Systolic blood pressure 98 mm[Hg] DO Honey Danilochak Work Phone: [facility] 11-12-2021 10:30-0400 Body height 167.64 cm DO Honey Danilochak Work Phone: [facility] 11-11-2021 15:00-0400 Body weight 92.98 kg DO Honey Danilochak Work Phone: [facility] 11-11-2021 08:00-0400 Body temperature 97.9 [degF] DO Honey Danilochak Work Phone: [facility] 11-11-2021 08:00-0400 Diastolic blood pressure 67 mm[Hg] DO Honey Vaschak Work Phone: [facility] 11-11-2021 08:00-0400 Heart rate 87 /min DO Honey Vaschak Work Phone: [facility] 11-11-2021 08:00-0400 SaO2% (BldA) [Mass fraction] 95 % DO Honey Vaschak Work Phone: [facility] 11-11-2021 08:00-0400 Systolic blood pressure 103 mm[Hg] DO Honey Vaschak Work Phone: [facility] 11-11-2021 05:58-0400 Respiratory rate 17 /min DO Honey Vaschak Work Phone: [facility] 11-11-2021 04:10-0400 Body weight 93.3 kg DO Honey Vaschak Work Phone: [facility] 11-05-2021 16:33-0400 Body height 167.64 cm DO Honey Vaschak Work Phone: [facility] 10-19-2021 23:25-0400 Diastolic blood pressure 78 mm[Hg] DO Honey Vaschak Work Phone: [facility] 10-19-2021 23:25-0400 Heart rate 83 /min DO Honey Vaschak Work Phone: [facility] 10-19-2021 23:25-0400 Respiratory rate 18 /min DO Honey Vaschak Work Phone: [facility] 10-19-2021 23:25-0400 SaO2% (BldA) [Mass fraction] 100 % DO Honey Vaschak Work Phone: [facility] 10-19-2021 23:25-0400 Systolic blood pressure 164 mm[Hg] DO Honey Vaschak Work Phone: [facility] 10-19-2021 19:51-0400 Body temperature 97.6 [degF] DO Honey Vaschak Work Phone: [facility] 10-19-2021 19:48-0400 Body height 167.64 cm DO Honey Vaschak Work Phone: [facility] 10-19-2021 19:48-0400 Body weight 98.6 kg DO Honey Vaschak Work Phone: [facility] 10-01-2021 11:58-0400 Body height 167.6 cm Gloria Perez INTERNAL COMBUSTION ENGINE INSPECTOR.DIGITAL IMAGING SPECIALIST Work Phone: [facility] 10-01-2021 11:58-0400 Body weight 101.06 kg Gloria Perez INTERNAL COMBUSTION ENGINE INSPECTOR.DIGITAL IMAGING SPECIALIST Work Phone: [facility] 10-01-2021 11:58-0400 SaO2% (BldA) [Mass fraction] 98 % Gloria Perez INTERNAL COMBUSTION ENGINE INSPECTOR.DIGITAL IMAGING SPECIALIST Work Phone: [facility] 09-28-2021 02:06-0400 Heart rate 86 /min DO Honey Danilochak Work Phone: [facility] 09-28-2021 00:01-0400 Body height 167.64 cm DO Honey Mukulk Work Phone: [facility] 09-28-2021 00:01-0400 Body mass index (BMI) [Ratio] 35.5 kg/m2 DO Honey Vaschak Work Phone: [facility] 09-28-2021 00:01-0400 Body weight 99.79 kg DO Honey Danilochak Work Phone: [facility] 09-27-2021 23:57-0400 Body temperature 99.6 [degF] DO Honey Vaschak Work Phone: [facility] 09-27-2021 23:57-0400 Diastolic blood pressure 59 mm[Hg] DO Honey Vaschak Work Phone: [facility] 09-27-2021 23:57-0400 Respiratory rate 16 /min DO Honey Danilochak Work Phone: [facility] 07-17-2022 23:57-0400 SaO2% (BldA) [Mass fraction] 97 % DO Honey Rabago Work Phone: [facility] 09-27-2021 23:57-0400 Systolic blood pressure 125 mm[Hg] DO Honey Rabago Work Phone: [facility] 07-31-2020 16:20-0400 Body height 167.64 cm Honey Rabago Work Phone: [facility] 07-31-2020 16:20-0400 Body mass index (BMI) [Ratio] 41.6 kg/m2 Honey GilmanKryptiq Work Phone: [facility] 07-31-2020 16:20-0400 Body weight 117.02 kg Honey Rabago Work Phone: [facility] 07-31-2020 16:19-0400 Body temperature 98.1 [degF] Honey GilmanKryptiq Work Phone: [facility] 07-31-2020 16:19-0400 Diastolic blood pressure 70 mm[Hg] Honey GilmanKryptiq Work Phone: [facility] 07-31-2020 16:19-0400 Heart rate 90 /min Honey Rabago Work Phone: [facility] 07-31-2020 16:19-0400 Respiratory rate 18 /min Honey Rabago Work Phone: [facility] 07-31-2020 16:19-0400 SaO2% (BldA) [Mass fraction] 98 % Honey Rabago Work Phone: [facility] 07-31-2020 16:19-0400 Systolic blood pressure 155 mm[Hg] Honey Rabago Work Phone: [facility] Encounters Encounter Date Encounter Type Care Provider Facility Start: 08-18-2023 End: 08-18-2023 ambulatory URBANO HUTTON Not Available Start: 08-16-2023 End: 08-16-2023 ambulatory VALORIE SULLIVAN Not Available Start: 07-29-2023 End: 07-29-2023 ambulatory HONEY RABAGO Not Available Start: 06-23-2023 End: 06-23-2023 ambulatory GLORIA PEREZ Facility:[facility] Start: 06-23-2023 End: 06-23-2023 Patient encounter procedure Gloria Perez APRN.DIGITAL IMAGING SPECIALIST Work Phone: Neurology Comment on above: Depression with anxi ety (Primary Dx); Parkinson's disease without dyskinesia, with fluctuating manifestations (HCC); Sialorrhea Start: 05-17-2023 End: 05-17-2023 ambulatory URBANO HUTTON Not Available Start: 04-27-2023 Clinisync Result Encounter Gen ciaran External Data Provider [facility] External Department Unsolicited Start: 04-27-2023 Clinisync Result Encounter Gen ciaran External Data Provider [facility] External Department Unsolicited Start: 03-28-2023 End: 03-28-2023 ambulatory MAC HAMILTON Not Available Start: 03-28-2023 End: 03-28-2023 ambulatory HONEY RABAGO Not Available Start: 02-11-2023 Telephone encounter Gloria blankenship APRN.DIGITAL IMAGING SPECIALIST Work Phone: Neurology Comment on above: Medication Problem Start: 01-25-2023 End: 01-25-2023 ambulatory URBANO HUTTON Not Available Start: 01-20-2023 End: 01-20-2023 ambulatory GLORIA PEREZ Facility:[facility] Start: 01-20-2023 End: 01-20-2023 Patient encounter procedure Gloria Perez APRN.DIGITAL IMAGING SPECIALIST Work Phone: Neurology Comment on above: Parkinson's disease without dyskinesia, with fluctuating manifestations (Primary Dx); Depression with anxiety Start: 07-14-2022 End: 07-14-[address] HONEY RABAGO Facility:[facility] Start: 07-12-2022 End: 07-12-[address] HONEY RABAGO Facility:[facility] Start: 07-08-2022 End: 07-08-2022 ambulatory HONEY RABAGO Facility:[facility] Start: 07-08-2022 End: 07-08-2022 Patient encounter procedure Gloria Perez APRN.DIGITAL IMAGING SPECIALIST Work Phone: Neurology Comment on above: Parkinson's disease (HCC) (Primary Dx); Depression with anxiety Start: 06-01-2022 End: 06-01-[address] HONEY RABAGO Facility:[facility] Start: 05-31-2022 ambulatory Gloria Perez APRN.DIGITAL IMAGING SPECIALIST Work Phone: Neurology Comment on above: UPDATE: ALTON CRAWFORD : [birth year] Start: 05-20-2022 End: 05-20-2022 ambulatory Honey Rabago Facility:[facility] Start: 05-20-2022 End: 05-20-2022 ambulatory DO Honey Rabago Work Phone: [facility] Work Phone: Start: 05-20-2022 End: 05-20-2022 Discharged Recurring DO Honey Rabago Work Phone: [facility]fusion [facility] - O/P Work Phone: Start: 04-13-2022 Refill Gloria Perez APRN.DIGITAL IMAGING SPECIALIST Work Phone: Neurology Comment on above: Refill Request Start: 02-15-2022 Telephone encounter Gloria blankenship APRN.DIGITAL IMAGING SPECIALIST Work Phone: Neurology Comment on above: Patient Update Start: 02-02-2022 End: 02-03-[address] HONEY RABAGO Facility:[facility] Start: 01-08-2022 End: 01-08-2022 ambulatory Anu Alva Other [email or web address] Other Start: 01-08-2022 Telephone encounter Anu Alva [facility] Start: 12-30-2021 End: 12-30-2021 ambulatory Honey Rabago Facility:[facility] Start: 12-30-2021 End: 12-30-2021 Patient encounter procedure DO Honey Rabago Work Phone: [facility] Start: 12-29-2021 End: 12-30-[address] HONEY RABAGO Facility:[facility] Start: 12-21-2021 End: 12-21-[address] HONEY RABAGO Facility:[facility] Start: 12-15-2021 (Repeat [facility]) Anu Juan Migueljulius [facility] Start: 12-15-2021 End: 12-15-2021 ambulatory Anu Alva Other [email or web address] Other Start: 12-14-2021 End: 12-14-[address] HONEY RABAGO Facility:[facility] Start: 12-01-2021 (Repeat [facility]) Anu Alva [facility] Start: 12-01-2021 End: 12-01-2021 ambulatory Anu Alva Other [email or web address] Other Start: 11-30-2021 End: 11-30-[address] HONEY RABAGO Facility:[facility] Start: 11-11-2021 End: 11-25-2021 Evaluation and management of inpatient Alcides Moya Facility:[facility] Start: 11-11-2021 End: 11-25-2021 Evaluation and management of inpatient DO Méndez Danilokoki Work Phone: [facility] Start: 11-05-2021 End: 11-05-2021 ambulatory Oswaldo Almonte Other [email or web address] Other Start: 11-05-2021 Patient encounter procedure Oswaldo Almonte [facility] Start: 11-05-2021 Telephone encounter Gloria blankenship APRN.DIGITAL IMAGING SPECIALIST Work Phone: Neurology Comment on above: Appointment; Patient Update (Called to schedule follow up. Patient in hospital.) Start: 11-04-2021 End: 11-11-2021 ambulatory Honey Rabago Facility:[facility] Start: 11-04-2021 End: 11-11-2021 Evaluation and management of inpatient DO Méndez Danilokoki Work Phone: [facility] Start: 10-26-2021 ambulatory Gloria Perez APRN.DIGITAL IMAGING SPECIALIST Work Phone: Neurology Comment on above: ALTON BARKER UPDATE MESSAGE #3 Start: 10-22-2021 Registered Recurring DO Honey Rabago Work Phone: [facility] Start: 10-22-2021 ([facility] R A/c) [facility] Re peat A/C Anu Fitt [facility] Start: 10-22-2021 End: 10-23-2021 ambulatory Honey Rabago [email or web address] Other Start: 10-19-2021 End: 10-20-2021 Emergency department patient visit Holger Dorado Facility:[facility] Start: 10-19-2021 End: 10-20-2021 Emergency department patient visit DO Honey Rabago Work Phone: [facility]-Emergency Room Start: 10-01-2021 End: 10-01-2021 Patient encounter procedure Gloria Perez APRN.DIGITAL IMAGING SPECIALIST Work Phone: Neurology Comment on above: Recurrent episodes o f unresponsiveness (Primary Dx); Parkinson's disease (HCC); Depression with anxiety; Fatigue, unspecified type; Excessive daytime sleepiness Start: 09-29-2021 ([facility] R A/c) [facility] Re peat A/C Anu Fitt [facility] Start: 09-29-2021 End: 09-29-2021 ambulatory Anu Fitt Other [email or web address] Other Start: 09-28-2021 End: 09-28-2021 Emergency department patient visit Sumanth Lowe Facility:[facility] Start: 09-27-2021 End: 09-28-2021 Emergency department patient visit DO Honey Rabago Work Phone: [facility]-Emergency [facility] Start: 09-23-2021 End: 09-23-2021 ambulatory Anu Fitt Other [email or web address] Other Start: 09-23-2021 Telephone encounter Anu Juan Miguelt [facility] Start: 08-26-2021 ([facility] R A/c) [facility] Re peat A/C Anu Fitt [facility] Start: 08-26-2021 End: 08-26-2021 ambulatory Anu Fitt Other [email or web address] Other Start: 08-05-2021 ([facility] R A/c) [facility] Re peat A/C Anu Fitt [facility] Start: 08-05-2021 End: 08-05-2021 ambulatory Anu Fitt Other [email or web address] Other Start: 07-20-2021 ([facility] R A/c) [facility] Re peat A/C Anu Fitt [facility] Start: 07-20-2021 End: 07-20-2021 ambulatory Anu Fitt Other [email or web address] Other Start: 06-10-2021 ([facility] R A/c) [facility] Re peat A/C Anu Fitt [facility] Start: 06-10-2021 End: 06-10-2021 ambulatory Anu Fitt Other [email or web address] Other Start: 05-26-2021 ([facility] R A/c) [facility] Re peat A/C Anu Fitt [facility] Start: 05-26-2021 End: 05-26-2021 ambulatory Anu Fitt Other [email or web address] Other Start: 05-19-2021 End: 05-19-2021 ambulatory Anu Fitt Other [email or web address] Other Start: 05-19-2021 Telephone encounter Anu Nida [facility] Start: 04-21-2021 End: 04-21-2021 ambulatory Anu Fitt Other [email or web address] Other Start: 04-21-2021 Telephone encounter Anu Fitt [facility] Start: 04-15-2021 End: 04-15-2021 ambulatory Anu Fitt Other [email or web address] Other Start: 04-15-2021 Telephone encounter Anu Fitt [facility] Start: 03-25-2021 ([facility] R A/c) [facility] Re peat A/C Anu Fitt [facility] Start: 03-25-2021 End: 03-25-2021 ambulatory Anu Fitt Other [email or web address] Other Start: 02-25-2021 ([facility] R A/c) [facility] Re peat A/C Anu Fitt [facility] Start: 02-25-2021 End: 02-25-2021 ambulatory Anu Fitt Other [email or web address] Other Start: 01-28-2021 ([facility] R A/c) [facility] Re peat A/C Anu Fitt [facility] Start: 01-28-2021 End: 01-28-2021 ambulatory Anu Fitt Other [email or web address] Other Start: 01-21-2021 End: 01-21-2021 ambulatory Anu Fitt Other [email or web address] Other Start: 01-21-2021 Telephone encounter Anu Fitt [facility] Start: 01-07-2021 End: 01-07-2021 ambulatory Anu Fitt Other [email or web address] Other Start: 01-07-2021 Telephone encounter Anu Fitt [facility] Start: 12-10-2020 ([facility] R A/c) [facility] Re peat A/C Anu Alva [facility] Start: 07-31-2020 End: 07-31-2020 Emergency department patient visit Honey Rabago Work Phone: -Emergency Room Start: 06-18-2020 Registered Recurring Honey jaraaura Work Phone: -[facility] Procedures Date Procedure Procedure Detail Performing Clinician Start: 04-27-2023 ALL HEMOGLOBIN Generic External Data Provider Start: 11-05-2021 MR lumbar spine wo con DO Honey Rabago Work Phone: Start: 11-04-2021 CT of head without contrast DO Honey Carrascokoki Work Phone: Start: 11-04-2021 Computed tomography of thoracic spine without contrast DO Honey Carrascokoki Work Phone: Start: 11-04-2021 CT cervical spine wi thout contrast DO Honey Carrascokoki Work Phone: Start: 11-04-2021 CT of lumbar spine w ithout contrast DO Honey Rabago Work Phone: Start: 10-19-2021 CT of head without contrast DO Honey Rabago Work Phone: Start: 10-19-2021 X-ray of lumbar spin e, two or three views DO Honey Carrascolloydaura Work Phone: Start: 09-29-2021 Adult depression scr eening assessment Gloria Perez INTERNAL COMBUSTION ENGINE INSPECTOR.DIGITAL IMAGING SPECIALIST Work Phone: Start: 09-28-2021 Plain chest X-ray DO Sidra lara Hima Work Phone: Start: 07-31-2020 Radiography of cervi james spine Honey Hima Work Phone: SARS-CoV-2, Influenz a & RSV (PCR) DO Honey Carrascokoki Work Phone: Urine culture DO Honey cuellar Work Phone: Urine culture DO Honey Yun cuellar Work Phone: Urine culture DO Honey cuellar Work Phone: Plan of Treatment Date Care Activity Detail Author Start: 03-28-2026 Diabetes Screening Diabetes Screenjason soto [facility] Start: 01-23-2024 Glaucoma screening Diabetes: R etinopathy Screening [facility] Start: 12-04-2023 DIABETES SCREEN DIABETES SCREEN [facility] Start: 12-04-2023 Diabetes Screening Diabetes Screenin charles [facility] Start: 10-06-2023 End: 10-06-2023 Patient encounter procedure 10/06/2023 10:50 AM EDT Office Visit [facility] [address] [place] [phone] Nicol Aponte MD [address] [place] [address] [facility] Start: 07-29-2023 Medicare Annual Wellness (AWV) Medicare Annual Wellness (AWV) [facility] Start: 07-27-2023 End: 07-27-2023 Patient encounter procedure 07/27/2023 2:00 PM EDT Office Visit [facility] [address] [place] [phone] Honey Rabago DO [address] [place] [address] [facility] Start: 06-27-2023 Hemoglobin A1c measurement Diabetes: Hemoglobin A1C [facility] Start: 05-04-2023 End: 05-04-2023 Patient encounter procedure 05/04/2023 1:00 PM EST Procedure Visit [facility] [address] [place] [phone] Urbano Hutton DPM [address] [place] [address] [facility] Start: 03-14-2023 Advance Directive Discussion Advance Directive Discussion [facility] Start: 11-12-2022 Covid-19 Vaccine ( season) Covid-19 Vaccine () [facility] Start: 09-29-2022 Adult depression screening assessment DEPRESSION SCREENING [facility] Start: 03-14-2022 ADVANCE DIRECTIVE DISCUSSION ADVANCE DIRECTIVE DISCUSSION [facility] Start: 03-14-2022 DEPRESSION ASSESSMENT DEPRESSION ASS ESSMENT [facility] Start: 12-11-2021 [facility] Work Phone: Start: 12-10-2021 [facility] Work Phone: Start: 12-09-2021 [facility] Work Phone: Start: 12-08-2021 [facility] Work Phone: Start: 12-07-2021 [facility] Work Phone: Start: 12-06-2021 [facility] Work Phone: Start: 12-05-2021 [facility] Work Phone: Start: 12-04-2021 [facility] Work Phone: Start: 12-03-2021 [facility] Work Phone: Start: 12-02-2021 [facility] Work Phone: Start: 12-01-2021 [facility] Work Phone: Start: 11-30-2021 [facility] Work Phone: Start: 11-29-2021 [facility] Work Phone: Start: 11-28-2021 [facility] Work Phone: Start: 11-27-2021 [facility] Work Phone: Start: 11-26-2021 [facility] Work Phone: Start: 11-25-2021 [facility] Work Phone: Start: 11-24-2021 End: 11-24-2021 [facility] Start: 11-23-2021 [facility] Start: 11-22-2021 [facility] Work Phone: Start: 11-21-2021 [facility] Work Phone: Start: 11-20-2021 [facility] Work Phone: Start: 11-19-2021 [facility] Work Phone: Start: 11-18-2021 [facility] Work Phone: Start: 11-17-2021 [facility] Work Phone: Start: 11-16-2021 [facility] Work Phone: Start: 11-15-2021 [facility] Work Phone: Start: 11-14-2021 [facility] Work Phone: Start: 11-13-2021 [facility] Work Phone: Start: 11-12-2021 Influenza vaccination INFLUENZA (#1) [facility] Start: 11-11-2021 Administration of prophylactic treatment [facility] Start: 11-11-2021 Hospital admission [facility] Start: 11-11-2021 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 sourcing analyst [facility] Start: 11-11-2021 [facility] Work Phone: Start: 11-11-2021 Evaluation and management of inpatient Back pain [facility] Start: 11-09-2021 [facility] Start: 11-05-2021 MR lumbar spine wo con MR lumbar spi ne wo con [facility] Start: 11-05-[address] Administration of prophylactic treatment [facility] Start: 11-05-2021 Administration of prophylactic treatment [facility] Start: 11-05-[address] [facility] Start: 11-04-[address] [facility] Start: 11-04-2021 Hospital admission [facility] Start: 11-04-2021 End: 11-11-2021 Evaluation and management of inpatient Back pain [facility] Start: 11-04-2021 CT of head without contrast CT head/brain wo [facility] Start: 11-04-2021 Computed tomography of thoracic spine without contrast CT thoracic spine wo [facility] Start: 11-04-2021 CT cervical spine without contrast CT cervical spine wo [facility] Start: 11-04-2021 CT of lumbar spine without contrast CT lumbar spine wo [facility] Start: 10-22-2021 Registered Recurring Registered Recu rring [facility] Start: 07-28-2021 Urine screening for protein Diabetes: Urine Protein Screening [facility] Start: 05-20-2021 COVID-19 VACCINE (4 - Booster for Moderna series) COVID-19 VACCINE (4 - Booster for Moderna series) [facility] Start: 03-17-2021 COVID-19 VACCINE (4 - Booster for Moderna series) COVID-19 VACCINE (4 - Booster for Moderna series) [facility] Start: 03-14-2021 ADVANCE DIRECTIVE DISCUSSION ADVANCE DIRECTIVE DISCUSSION [facility] Start: 03-14-2021 DEPRESSION ASSESSMENT DEPRESSION ASS ESSMENT [facility] Start: 07-23-2009 Urine microalbumin profile DTaP,Tdap,Td Vaccine (1 - Tdap) [facility] Start: 2006 BONE DENSITY BONE DENSITY [facility] Start: 2006 Bone Density Screening Bone Density Screening [facility] Start: 2006 PNEUMOCOCCAL: 65+ (1 - PCV) PNEUMOCOCCAL: 65+ (1 - PCV) [facility] Start: 2001 RSV Vaccine (1 - 1-d ose 60+ series) RSV Vaccine (1 - 1-dose 60+ series) [facility] Start: 07-14-1991 SHINGRIX VACCINE (1 of 2) SHINGRIX VACCINE (1 of 2) [facility] Start: 1960 Urine microalbumin profile DTAP,TDAP,TD (1 - Tdap) [facility] End: 10-04-2022 EPIL EEG ROUTINE EPIL EEG ROUTINE NEUROLOGY Routine Recurrent episodes of unresponsiveness 1 Occurrences starting 10/04/2021 until 10/04/2022 [facility] Work Phone: Comment on above: 1 Occurrences starti ng 10/04/2021 until 10/04/2022 Patient Education [facility] Work Phone: [facility] Immunizations Immunization Date Immunization Notes Care Provider Fa cili 12-15-2022 Influenza, Seasonal, Quadrivalent, Adjuvanted Generic Provider [facility] 01-25-2022 influenza, high dose seasonal, preservative-free Generic Provider [facility] 12-03-2020 influenza, high dose seasonal, preservative-free Generic Provider [facility] 12-24-2019 Seasonal trivalent influenza vaccine, adjuvanted, preservative free Generic Provider [facility] 02-05-2019 influenza, high dose seasonal, preservative-free Anu Juan Miguelt Other [email or web address] Other 02-10-2018 influenza, high dose seasonal, preservative-free Generic Provider [facility] 05-03-2017 influenza, injectabl e, quadrivalent, preservative free Generic Provider [facility] 12-25-2015 influenza, high dose seasonal, preservative-free Generic Provider [facility] 12-17-2014 influenza, seasonal, injectable, preservative free Generic Provider [facility] 10-02-2014 pneumococcal conjuga te vaccine, 13 valent Generic Provider [facility] 11-28-2013 influenza, high dose seasonal, preservative-free Generic Provider [facility] 10-01-2013 pneumococcal polysaccharide vaccine, 23 valent Generic Provider [facility] 01-13-2012 seasonal influenza, intradermal, preservative free Generic Provider [facility] 01-09-2010 seasonal influenza, intradermal, preservative free Generic Provider [facility] 07-22-2009 tetanus and diphther ia toxoids, adsorbed, preservative free, for adult use (2 Lf of tetanus toxoid and 2 Lf of diphtheria toxoid) Generic Provider [facility] 12-16-2008 seasonal influenza, intradermal, preservative free Generic Provider [facility] Payers Date Payer Category Payer Medicare [id number] 2021 Medicare [id number] 2021 Medicare [id number] 2021 Unknown ANTHEM BLUE CROS S AND BLUE SHIELD ANTHEM MEDIBLUE HMO [id number] 2021-[facility] [phone] [address] [place] [address] O [id number] 2021 Unknown [id number] [id number] .[id number] 2016 Self-pay [id number] 1959 Medicare [id number] 1959 Unknown [id number] 1941 Unknown [id number] 2.16.840.1.388801.3.579.2.5 1941 Unknown [id number] .16.840.1.765301.3.579.2.5 1941 Unknown [id number] 2.16.840.1.774827.3.579.2.5 1941 Unknown [id number] 2.16.840.1.423413.3.579.2.5 1941 Unknown [id number] 2.16.840.1.289068.3.579.2.5 1941 Unknown [id number] 2.16.840.1.089176.3.579.2.5 93 1941 Unknown [id number] 2.16.840.1.838920.3.579.2.5 93 1941 Unknown [id number] 2.16.840.1.795707.3.579.2.5 93 1941 Unknown [id number] 2.16.840.1.076337.3.579.2.1 259 1941 Unknown [id number] 2.16.840.1.492159.3.579.2.1 259 1941 Unknown [id number] 2.16.840.1.319967.3.579.2.1 259 1941 Unknown [id number] 2.16.840.1.220931.3.579.2.1 259 1941 Unknown [id number] 2.16.840.1.991718.3.579.2.1 259 1941 Unknown [id number] 2.16.840.1.497793.3.579.2.1 259 1941 Unknown [id number] 2.16.840.1.562345.3.579.2.1 259 Private Health Insurance [facility] [id number] Unknown [id number] 2.16.840.1.345442.3.579.2.5 31 Unknown [id number] 2.16.840.1.101422.3.579.2.5 31 Unknown [id number] 2.16.840.1.315160.3.579.2.5 31 Unknown [id number] 2.16.840.1.298510.3.579.2.5 31 Unknown [id number] 2.16.840.1.502254.3.579.2.5 31 Unknown [id number] 2.16.840.1.035110.3.579.2.5 31 Unknown [id number] 2.16.840.1.528252.3.579.2.5 31 Social History Date Type Detail Facility Start: 07-31-2020 End: 02-12-2022 Tobacco smoking status NHIS Ex-smoker (finding) [facility] Start: 1940 Sex Assigned At Female [facility] Start: 01-20-2023 End: 06-22-2023 Sex Assigned At [facility] Start: 03-02-2018 End: 02-12-2022 Tobacco use and exposure Smokeless tobacco non-user [facility] Start: 09-21-2021 End: 02-12-2022 Exposure to SARS-CoV-2 (event) Not sure [facility] History of tobacco use Current smoker [facility] Start: 11-12-2021 End: 09-23-2022 Tobacco smoking status MIIS Never smoked tobacco (finding) [facility] Start: 01-20-2023 End: 06-22-2023 History of Social function [facility] Adult Depression Screening Assessment 4 [facility] Start: 11-26-2019 Gender identity Identifies as female gender (finding) [facility] Start: 11-26-2019 Sexual orientation Heterosexual (finding) [facility] Start: 03-28-2023 Alcohol intake Current drinker of alcohol (finding) [facility] How often to you hav e a drink containing alcohol? Never [facility] Start: 12-12-2022 Alcohol Comment caffeine: coffee 1-2 cups a day [facility] Start: 1940 Sex Assigned At Not on file [facility] Medical Equipment Procedure Code Equipment Code Equipment Origin al Text Equipment Identifier Dates USE DIRECTED BEFORE MEALS AND BEDTIME Start: 08-28-2018 End: 09-29-2021 Comment on above: USE DIRECTED BEFO RE MEALS AND BEDTIME Goals Date Patient Goal Desired Activity /State Functional Status Date Assessment Result Facility 11-25-2021 Functional status Patient is Pro gressing Toward Baseline [facility] Work Phone: 11-11-2021 Functional status Patient is Pro gressing Toward Baseline [facility] Work Phone: 11-04-2021 Functional status Patient at Baseline [facility] Work Phone: Mental Status Date Assessment Result Facility 11-25-2021 Cognitive function Cognitive Sta tus Patient at Baseline [facility] Work Phone: 11-11-2021 Cognitive function Cognitive Sta tus Patient Not at Baseline [facility] Work Phone: 11-04-2021 Cognitive function Cognitive Sta tus Patient at Baseline [facility] Work Phone: Clinical Notes 12-10-2020 to 06-23-2023 Patient InstructionsGloria Perez APRN.DIGITAL IMAGING SPECIALIST - 06/23/2023 3:00 PM EDTAddendum Note - Anu Hillman RN - 02/11/2023 2:59 PM ESTTelephone Encounter - Anu Hillman RN - 02/11/2023 2:57 PM EST Note Date & Type Note Facility 06-23-2023 Note HNO ID: [id number] Author: GLORIA PEREZ APRN.DIGITAL IMAGING SPECIALIST Service: ? Author Type: Nurse Practitioner Type: Progress Notes Filed: 06/23/2023 20:12 Note Text: [facility] - FOLLOW UP EVALUATION Honey Rabago DO [address] [facility] [place] [address] [facility] [address] Dear Honey Rabago DO: I had the pleasure of seeing Ms. Barker for follow-up today. As you know she is a 82 year old right-handed female with a history of Parkinson's disease since 2013. She is seen with her son. Subjective Previous Plan-01/20/2023 Visit: Parkinson's disease: Continue current medication schedule but discuss with the ski lift attendant if you can take the Sinemet on [...] GI specialist who previously stretched your esophagus Interval History: She fell asleep this morning on the toilet from approximately 7am-11am. She missed her morning medications as a result. When she falls asleep in bed at night or takes a nap, she does use her Cpap, but if falls asleep outside of her bed, she does not. Starting yesterday, she has had an occasionally have arm jerking out (4 times this week). It has mostly been in the evening. She was recently diagnosed with pulmonary fibrosis. Movement Disorders Medications Schedule - as of the start of the visit: Medications 7am 12pm 5pm Bedtime Sinemet 25/100 1.5 1.5 1.5 Effexor 150mg 1 Effexor 75mg 1 Mirtazapine 7.5mg 1 Parkinson's Motor Complications Medication benefit onset: 10 minutes Medication duration: (Comment: 4-4.5) Wearing off: yes (Comment: She will have tremor when it wears off. If she is busy, she will likely not notice it wearing off.) Painful off-state dystonia: no Dyskinesia: no Prior Anti-Parkinson Therapies Carbidopa/Levodopa Questionnaires: In addition, the following areas that may be affected by abnormal involuntary movements were evaluated: Daily activities Difficulties with eating: Yes (mild) Difficulties in dressing: Yes (mild) Difficulties with hygiene activities: Yes (slight) Difficulties with handwriting: Yes (severe) Difficulties with doing hobbies and other activities: Yes (mild) Difficulties turning in bed: Yes (slight) Difficulties getting out of bed, car or chair: Yes (mild) Tremors/Gait/Balance Shaking or tremors: Yes (mild) Walking and balance problems: Yes (moderate) She uses a walker. Number of falls in the Last Month: 1x This happened a few days ago when getting changd for dinner and she turned around and sat in the clothes basket full of dirty clothese. She was not injured. Gait freezin (none) Autonomic/Pain Lightheadeness on standing: Yes (mild) Urinary problems: Yes (severe) Constipation problems: Yes (mild) Pain and other sensations: Yes (moderate) Speech/Swallowing Speech problems: Yes (slight) Drooling: Yes (moderate) Has always had at night but is now drooling some during the day Chewing and swallowing problems: Yes (slight) Sleep/Fatigue Sleep problems: 0 (none) Daytime sleepiness: Yes (mild) Fatigue: Yes (mild) Mood/Behavior Depression: PHQ-9 Score: 6 usually representing mild (5-9) depression. She said her mood is an up and down day by day thing. Anxiety: GREGORY-7 Total Score: 0 usually representing no significant (0-4) anxiety. Finally, the following table shows the patient's overall global physical and mental health using the PROMIS scale: PROMIS-10 Flowsheet Row Office Visit from 06/23/2023 in Neurology Office Visit from 10/01/2021 in Neurology Global Physical Health T Score 34.9 34.9 Global Mental Health T Score 45.8 38.8 0-10 Standard Pain Scale 2 3 *PROMIS-10 scoring scale: mean = 50, over 50 is above average, under 50 is below average In addition, the following non-motor symptoms and palliative concerns were evaluated: Sleep/Fatigue: REM sleep behavior disorder: No She is not sure but is not tangled in her sheets, bed is not a mess, she has not fallen out of bed, etc. Restless Legs Syndrome: No Leg swelling: Intermittent Impaired sense of smell: Yes Cognition: Cognitive impairment: yes She said she is more confused especially if there is change to her schedule. Her son noted that her thinking is much better when she uses her Cpap consistently. MoCA Cognitive assessment: 29 (02/03/2021) Hallucinations and delusions: no Apathy: This is better. Impulse control disorder: No Not currently a problem but her son said in the past that she ordered a lot online or on TV, $15/month on lottery tickets (in past also) Palliative Concerns: Caregiver burden: In assisted living so now less stre (more content not included)... [facility] 06-23-2023 Instructions Gloria Perez APRN.[facility] - 06/23/2023 3:54 PM EDT It was a pleasure to see you today. We addressed the following diagnoses: Parkinson's disease without dyskinesia, with fluctuating manifestations (hcc) My recommendations are as follows: 06/23/2023 Visit: Parkinson's disease: Change the timing of the Sinemet to that noted below. Please let me know if you change your mind about physical therapy and if the client server developer approves Depression and anxiety: Continue Venlafaxine (Effexor) and Mirtazapine Continue therapy Continue the activities you have been doing Sialorrhea (drooling) You have been provided with a hand out on drooling. Please do not hesitate to let me know if you have any questions about anything you read. Fatigue: Please make an effort to sleep in your bed since this is when you use your Cpap and therefore feel better Movement Disorders Medication Schedule: Medications 7am 11am 3pm 7pm Bedtime Sinemet 25/100 1.5 1 1 1 Effexor 150mg 1 Effexor 75mg 1 Mirtazapine 7.5mg 1 Return in about 4 months (around 10/23/2023). If there are any concerns before your next visit, please call or you can send a message through [employer]. You can also now schedule and select appointments through [employer]. Gloria Perez APRN.DIGITAL IMAGING SPECIALIST From the Parkinson's Foundation: [email or web address].parkinson.org What Can I Do About Drooling? If you tend to drool, you probably don't have more saliva than you used to have; you are just not swallowing it as frequently or as automatically as before. Frequent sips of water or sucking on ice chips during the day can help you swallow more often. When you are not talking or eating, keep your head up, with your chin parallel to the floor and your lips closed. Sugar tends to produce more saliva in the mouth, so reducing sugar intake can be helpful. One trick is to suck on hard candy or chew gum, preferably sugarless. Candy and gum activate the jaw and the automatic swallowing reflex and can help clear saliva, providing temporary relief from drooling. Another tactic is to wear a sweatband on your wrist. This can be used to discreetly wipe the mouth as necessary and is a relatively inconspicuous accessory. If these lifestyle strategies are not effective, adjusting anti-PD medications may make it easier to swallow. There are also some other prescription medication options: Glycopyrrolate and other oral anticholinergic medications (trihexyphenidyl, benztropine, hycosamine): Oral anticholinergic medications, as a class, decrease the production of saliva. Usually this is perceived as a side effect (dry mouth), but in this case it is an advantage. Other anticholinergic side effects may be seen, including drowsiness, confusion, vomiting, dizziness, blurred vision, constipation, flushing, headache and urinary retention. Anticholinergics can also have mental side effects, so their use should be carefully considered. Scopolamine transdermal patch: This patch offers anticholinergic medicine that slows production of saliva as it is absorbed into the entire bloodstream. The side effects are similar to those seen with use of oral anticholinergic medications. 1% atropine eye drops (an anticholinergic): This treatment is given as 1-2 drops under the tongue per day to dry the mouth. Systemic side effects are much less likely with this local treatment. Botulinum toxin A: Botulinum toxin weakens muscles. Botulinum toxin A (Botox) is sometimes used to decrease saliva production for people who have issues with drooling; botulinum toxin B (Myobloc) is used to treat dystonia. Injection of botulinum toxin A into the salivary glands of the cheek and jaw can decrease production of saliva without (or with minimal) side effects, except for thickening of oral mucus secretion. Botox is not always effective, but when it works the benefit can last for several months before it wears off and re-injection is necessary. Botulinum toxin A can be an effective treatment for severe drooling but is more costly than other treatments, which your physician may want to try first. Botulinum toxin should probably be avoided when oral secretions are already very thick and difficult to clear. Botulinum toxin B causes dry mouth when used for dystonia, but it is not approved by the FDA for drooling. Many people with PD complain that they have a thick phlegm or mucus in the throat. Drinking more water will help thin this phlegm. Drinking carbonated beverages or tea with lemon may also help. Eating or drinking dairy products can make phlegm worse. documented in this encounter [facility] 06-23-2023 History of Presen t illness Narrative [facility] - FOLLOW UP EVALUATION Honey Rabago DO [address] [place] [address] [facility] [address] Dear Honey Rabago DO: I had the pleasure of seeing Ms. Barker for follow-up today. As you know she is a 82 year old right-handed female with a history of Parkinson's disease since 2013. She is seen with her son. Subjective Previous Plan-01/20/2023 Visit: Parkinson's disease: Continue current medication schedule but discuss with the ski lift attendant if you can take the Sinemet on [...] GI specialist who previously stretched your esophagus Interval History: She fell asleep this morning on the toilet from approximately 7am-11am. She missed her morning medications as a result. When she falls asleep in bed at night or takes a nap, she does use her Cpap, but if falls asleep outside of her bed, she does not. Starting yesterday, she has had an occasionally have arm jerking out (4 times this week). It has mostly been in the evening. She was recently diagnosed with pulmonary fibrosis. Movement Disorders Medications Schedule - as of the start of the visit: Medications 7am 12pm 5pm Bedtime Sinemet 25/100 1.5 1.5 1.5 Effexor 150mg 1 Effexor 75mg 1 Mirtazapine 7.5mg 1 Parkinson's Motor Complications Medication benefit onset: 10 minutes Medication duration: (Comment: 4-4.5) Wearing off: yes (Comment: She will have tremor when it wears off. If she is busy, she will likely not notice it wearing off.) Painful off-state dystonia: no Dyskinesia: no Prior Anti-Parkinson Therapies Carbidopa/Levodopa Questionnaires: In addition, the following areas that may be affected by abnormal involuntary movements were evaluated: Daily activities Difficulties with eating: Yes (mild) Difficulties in dressing: Yes (mild) Difficulties with hygiene activities: Yes (slight) Difficulties with handwriting: Yes (severe) Difficulties with doing hobbies and other activities: Yes (mild) Difficulties turning in bed: Yes (slight) Difficulties getting out of bed, car or chair: Yes (mild) Tremors/Gait/Balance Shaking or tremors: Yes (mild) Walking and balance problems: Yes (moderate) She uses a walker. Number of falls in the Last Month: 1x This happened a few days ago when getting changd for dinner and she turned around and sat in the clothes basket full of dirty clothese. She was not injured. Gait freezin (none) Autonomic/Pain Lightheadeness on standing: Yes (mild) Urinary problems: Yes (severe) Constipation problems: Yes (mild) Pain and other sensations: Yes (moderate) Speech/Swallowing Speech problems: Yes (slight) Drooling: Yes (moderate) Has always had at night but is now drooling some during the day Chewing and swallowing problems: Yes (slight) Sleep/Fatigue Sleep problems: 0 (none) Daytime sleepiness: Yes (mild) Fatigue: Yes (mild) Mood/Behavior Depression: PHQ-9 Score: 6 usually representing mild (5-9) depression. She said her mood is an up and down day by day thing. Anxiety: GREGORY-7 Total Score: 0 usually representing no significant (0-4) anxiety. Finally, the following table shows the patient's overall global physical and mental health using the PROMIS scale: PROMIS-10 Flowsheet Row Office Visit from 06/23/2023 in Neurology Office Visit from 10/01/2021 in Neurology Global Physical Health T Score 34.9 34.9 Global Mental Health T Score 45.8 38.8 0-10 Standard Pain Scale 2 3 *PROMIS-10 scoring scale: mean = 50, over 50 is above average, under 50 is below average In addition, the following non-motor symptoms and palliative concerns were evaluated: Sleep/Fatigue: REM sleep behavior disorder: No She is not sure but is not tangled in her sheets, bed is not a mess, she has not fallen out of bed, etc. Restless Legs Syndrome: No Leg swelling: Intermittent Impaired sense of smell: Yes Cognition: Cognitive impairment: yes She said she is more confused especially if there is change to her schedule. Her son noted that her thinking is much better when she uses her Cpap consistently. MoCA Cognitive assessment: 29 (02/03/2021) Hallucinations and delusions: no Apathy: This is better. Impulse control disorder: No Not currently a [...] Last ST Date: August 2022 Exercises Regularly: Yes She downloaded exercises off Facebook. ALLERGIES Allergen Reactions Hydrocodone-Acetami* Mental Status Change Adhesive Tape (Sridevi* Rash Bupropion Mental Status Change hallucinations Latex, Natural Rubb* Rash Rosuvastatin Calcium Unknown Current Outpatient Medications Medication Sig carbidopa-levodopa (SINEMET 25-100) 25-100 mg per tablet Take 1.5 tablets by mouth three times a day. venlafaxine (EFFEXOR) 75 mg tablet estradiol (ESTRACE) 0.01 % (0.1 mg/gram) vaginal cream Use vaginally one time a week. acetaminophen (TYLENOL) 500 mg tablet Take 500 mg by mouth every 8 hours as needed. 01/18/2023: [facility] MEDICATION, NON-DATABASE 750 mg two times a [...] route. diclofenac (VOLTAREN) 1 % topical gel warfarin (COUMADIN) 4 mg tablet cyanocobalamin (VITAMIN B-12) 500 mcg tablet Take [...] 1 tablet by mouth once daily. (Patient taking differently: Take 500 mg by mouth two times a day with meals.) atorvastatin (LIPITOR) 40 mg tablet Take 40 mg by mouth once daily. cholecalciferol (VITAMIN D3) 5,000 unit tab Take by mouth once daily. warfarin (COUMADIN) 2 mg tablet 1 tablet once daily. levothyroxine (SYNTHROID) 75 mcg tablet once daily. omeprazole (PRILOSEC) 20 mg capsule 20 mg once daily. vit C/vit E ac/lut/copper/zinc (PRESERVISION LUTEIN ORAL) Take by mouth twice daily. venlafaxine ER (EFFEXOR XR) 150 mg 24 hr capsule Take 150 mg by mouth every morning. JANUVIA 50 mg tablet Take 50 mg by mouth every morning. No current facility-administered medications for this visit. Objective Vital Signs: Ht 167.6 cm (5' 6 ) Wt 107.6 kg (237 lb 3.4 oz) SpO2 99% BMI 38.29 kg/m Orthostatic Vitals: Sitting: BP 149/79 Pulse 95 Standing: BP 133/79 Pulse 107 No LMP recorded. Patient is postmenopausal. Body mass index is 38.29 kg/m . Movement Disorders Scales Performed: MDS-UPDRS Motor subscale condition of exam Medication Off/On/Naiive ON Time of UPDRS 1525 Time of Last Medication 1100 Last Medication Taken DBS Right N/A DBS Left N/A MDS-UPDRS Motor subscale scores Speech 1-Slight. Loss of modulation, diction or volume, but still all words easy to understand. Facial Expression 1-Slight. Minimal masked facies manifested only by decreased frequency of blinking. Finger Taps Right 1-Slight. a) the regular rhythm is broken with one or two interruptions or hesitations of the tapping movement, b) slight slowing, c) the amplitude decrements near the end of the 10 taps. Finger Taps Left 2-Mild. a) 3 to [...] midway in the sequence. Toe Taps Right 0-Normal. No problem. Toe Taps Left 0-Normal. No problem. Leg Agility Right 1-Slight. a) the regular [...] of spontaneous movements. Postural Tremor Hand Right 1-Slight. Tremor is present but less than 1cm in amplitude. Postural Tremor Hand Left 1-Slight. Tremor is present but less than 1cm in amplitude. Kinetic Tremor Right 1-Slight. Tremor is present [...] old female with Parkinson's disease since 2013. I am adjusting her Sinemet to hopefully address the fluctuations she is experiencing. Other concerns were addressed as noted below. The following are the current problems noted and addressed during this visit: Parkinson's disease without dyskinesia, with fluctuating manifestations (hcc) Depression with anxiety (primary encounter diagnosis) Sialorrhea Plan 06/23/2023 Visit: Parkinson's disease: Change the timing of the Sinemet to that noted below. Please let me know if you change your mind about physical therapy and if the client server developer approves Depression and anxiety: Continue Venlafaxine (Effexor) and Mirtazapine Continue therapy Continue the activities you have been doing Sialorrhea (drooling) You have been provided with a hand out on drooling. Please do not hesitate to let me know if you have any questions about anything you read. Fatigue: Please make an effort to sleep in your bed since this is when you use your Cpap and therefore feel better Updated Movement Disorders Medication Schedule: Medications 7am 11am 3pm 7pm Bedtime Sinemet 25/100 1.5 1 1 1 Effexor 150mg 1 Effexor 75mg 1 Mirtazapine 7.5mg 1 Level of service : 91106 (40-54 min). Time spent 53 min on the day of service, which included preparing to see the patient, [id number] patient care, completing clinical documentation, obtaining and/or reviewing separately obtained history, performing a medically appropriate examination, and counseling and educating the patient/family/caregiver. Gloria Perez APRN.DIGITAL IMAGING SPECIALIST documented in this encounter [facility] 02-11-2023 Note HNO ID: [id number] Author: Nupur Main PA-C Service: ? Author Type: Physician Buyer Internship Type: Progress Notes Filed: 02/11/2023 4:48 PM Note Text: Reviewed chart - OK to refill; e-scripted to pharmacy as requested... [facility] 02-11-2023 Miscellaneous Notes Addended by: ANU HILLMAN on: 02/11/2023 02:59 PM Modules accepted: Orders Order pended to preferred pharmacy Last OV 01/20/23 Next OV 06/23/23 E- [id number] [place] [address] - [address] [facility] [phone] carbidopa-levodopa (SINEMET 25-100) 25-100 mg per tablet Patient son called in today in regards to medication and wanting to switch pharmacy, they were told the best way to do this would be to request a new prescription. They would like it sent to [facility] Thank you! documented in this encounter [facility] 01-20-2023 Note HNO ID: [id number] Author: Gloria Perez APRN.DIGITAL IMAGING SPECIALIST Service: ? Author Type: Nurse Practitioner Type: Progress Notes Filed: 01/24/2023 12:36 PM Note Text: [facility] - FOLLOW UP EVALUATION Honey Rabago DO [address] [place] [address] Dear Honey Rabago DO: I had the [...] Use vaginally one (more content not included)... [facility] 01-20-2023 Instructions Gloria Perez APRN.CNP - 01/20/2023 3:46 PM EST It was a pleasure to see you today. We addressed the following diagnoses: Parkinson's disease without dyskinesia, with fluctuating manifestations (primary encounter diagnosis) Depression with anxiety My recommendations are as follows: 01/20/2023 Visit: Parkinson's disease: Continue current medication schedule but discuss with the ski lift attendant if you can take the Sinemet on [...] or you can send a message through [employer]. You can also now schedule and select appointments through [employer]. Gloria Perez APRN.ELDON documented in this encounter [facility] 01-20-2023 History of Presen t illness Narrative [facility] - FOLLOW UP EVALUATION Honey Rabago DO [address] [place] [address] Dear Honey Rabago DO: I had the [...] 01/18/2023: Pt takes 2 tabs daily per [employer] med list MEDICATION, NON-DATABASE 750 mg two [...] she is going to discuss with the ski lift attendant, see if she can take her Parkinson's [...] current medication schedule but discuss with the ski lift attendant if you can take the Sinemet on [...] Mirtazapine 7.5mg 1 Level of service : 29373 (40-54 min). Time spent 47 min on the day of service, which included preparing to see the patient, miif-lr-cmti patient care, completing clinical documentation, obtaining and/or reviewing separately obtained history, performing a medically appropriate examination, counseling and educating the patient/family/caregiver, and ordering medications, tests, or procedures. Gloria Perez APRN.DIGITAL IMAGING SPECIALIST documented in this encounter [facility] 07-08-2022 Note HNO ID: [id number] Author: Gloria Perez APRN.DIGITAL IMAGING SPECIALIST Service: ? Author Type: Nurse Practitioner Type: Progress Notes Filed: 07/11/2022 5:23 PM Note Text: [facility] - FOLLOW UP EVALUATION Honey Rabago DO, DO [address] [facility] [address] [facility] [address] Dear Honey Rabago DO, DO: I had [...] She likes the staff. The director and director trading have to chip into cook since the [...] lot online or on TV, $15/month on [employer] tickets (in past) Palliative Concerns: Caregiver burden: [...] Rash Rosuvastatin Calcium (more content not included)... [facility] 07-08-2022 Instructions Gloria Perez APRN.DIGITAL IMAGING SPECIALIST - 07/08/2022 3:56 PM EDT It was [...] or you can send a message through [employer]. You can also now schedule and select appointments through [employer]. Gloria Perez APRN.ELDON documented in this encounter [facility] 07-08-2022 History of Presen t illness Narrative [facility] - FOLLOW UP EVALUATION Honey Rabago DO, DO [address] [facility] [address] Dear Honey Rabago DO, DO: I had [...] She likes the staff. 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 Time spent 47 min on the day of service, which included preparing to see the patient, [id number]-vpyd patient care, completing clinical documentation, obtaining and/or reviewing separately obtained history, performing a medically appropriate examination, counseling and educating the patient/family/caregiver, and ordering medications, tests, or procedures. Gloria Perez APRN.ELDON documented in this encounter [facility] 04-13-2022 Miscellaneous Notes Order pended [...] patient. Belen Tim documented in this encounter [facility] 02-15-2022 Miscellaneous Notes I tried calling, Gina, the social work lecturer in her primary care provider's office. I left a message requesting a call back. AYO Chicas documented in this encounter [facility] 12-15-2021 Evaluation note Encounter Date [...] Please call patient's son Jose David at [phone] with results. Spoke to Jose David and discussed above. Spoke with KORTNEY Albert ([phone] ) and given above instructions. Patient may get home testing for INRs set-up, will inform clinic if home testing begins. Home Health Order: Draw PT/INR on 01-04-22 Seen by Justin Nicolas [email or web address] [email or web address] Other 09-20-2022 Evaluation note* Encounter Date Diagnosis [...] discharged on 11/25 from inpatient re[place] [facility] with above plan and therapeutic INRs. Follow up in 2 weeks. Please call patient's son Jose David at [phone] with results. Spoke to Jose David and discussed above. Spoke with PRERNA Albert ([phone]) and given above instructions. Patient may get home testing for INRs set-up, will inform clinic if home testing begins. Home Health Order: Draw PT/INR on 12-14-21 Seen by Justin Nicolas [email or web address] [email or web address] Other 09-14-2022 Discharge summary Author Alcides Moya [facility] November 25, 2021 12:57pm Note Date/Time November 25, 2021 8:50am [facility] [address] [place] [address] Discharge Summary Signed Patient: Alton Barker MR#: [id number] : 1940 Acct:[id number] Age/Sex: 81 / F Adm Date: 2 Loc: Room: 7A8443-[address]: Alcides Moya MD Copies to: [...] 04:43 11/25/21 04:43 Narrative: General: cooperative, comfortable HENRI Head: normal to inspection Eyes General: appearance [...] Plan Discharge Plan Patient Disposition: Home Health [facility] Activity: Ambulate as Tolerated Diet: Regular Additional [...] on Tuesday11/30/21, with results to [facility], who will continue to manage your Coumadin dosing, as they were prior to your hospitalization. -Coumadin dosing: Take 2mg every day EXCEPT Tuesday and . Take 1mg on Tuesday and . Your Home Health agency is [facility] ( ). They will usually [...] signed by Alcides Moya MD> 11/25/21 1257 [facility] Work Phone: 1(595) 912-789309-12-2022 Progress note Author Alcides Moya [facility] November 23, 2021 3:01pm Note Date/Time November 23, 2021 1:36pm [facility] [address] [place] [address] Physiatry(Rehab) Progress Note Signed Patient: Alton Barker MR#: [id number] : 1940 Acct:[id number] Age/Sex: 81 / F Adm Date: 2 Loc: Room: 3Q8153-2 Type: ADM IN Attending Dr: Alcides Moya MD Copies to: ~ <Elham Mendoza APRN - Last Filed: 11/23/21 14:05> Date of Service: 11/23/2021 Subjective <Elham Mendoza APRN - Last Filed: 11/23/21 14:05> Subjective Narrative: Ms. Barker is a 81 year old female With history of Parkinson's disease, followed at the [facility], admitted to the rehabilitation unit with [...] it finally took effect, it was already orthotist/prosthetist. I reminded that she can take her [...] mg 11/11/21 14:29 Bisacodyl 10 Mg Supp.Rect OK 11/11/22 14:28 DAILY PRN Constipation Carbidopa/Levodopa 1.5 [...] 14:29 Docusate Enema 283 Mg/5 Ml Enema OK 11/11/22 14:28 DAILY PRN Constipation Lactulose 30 [...] Allied health note review, nursing note review, disaster recovery consultant note review, discussion with nursing and case management, and more than 50% of my time was spent on counseling and coordination of care, time spent 18 minutes Patient was personally seen by me, Dr. Moya, on the day of encounter, reviewed the history and the relevant portions of the chart, including current orders, allied health and disaster recovery consultant notes, labs/imaging and performed day elements [...] signed by Alcides Moya MD> 11/23/21 1501 [facility] Work Phone: 1(675) 871-427609-12-2022 Progress note Author Alcides Moya [facility] November 23, 2021 2:39pm Note Date/Time November 20, 2021 1:19pm [facility] [address] [place] [address] Physiatry(Rehab) Progress Note Signed Patient: Alton Barker MR#: [id number] : 1940 Acct:[id number] Age/Sex: 81 / F Adm Date: 2 Loc: Room: [address] [place] [address] Type: ADM IN Attending Dr: Alcides Moya MD Copies to: ~ <Elham Mendoza APRN - Last Filed: 11/20/21 13:21> Date of Service: 11/20/2021 Subjective <Elham Mendoza APRN - Last Filed: 11/20/21 13:21> Subjective Narrative: Ms. Barker is a 81 year old female With history of Parkinson's disease, followed at the [facility], admitted to the rehabilitation unit with [...] mg 11/11/21 14:29 Bisacodyl 10 Mg Supp.Rect OK 11/11/22 14:28 DAILY PRN Constipation Carbidopa/Levodopa 1.5 [...] 14:29 Docusate Enema 283 Mg/5 Ml Enema OK 11/11/22 14:28 DAILY PRN Constipation Lactulose 30 [...] Allied health note review, nursing note review, disaster recovery consultant note review, discussion with nursing and case management, and more than 50% of my time was spent on counseling and coordination of care, time spent 16 minutes Patient was personally seen by me, Dr. Moya, on the day of encounter, reviewed the history and the relevant portions of the chart, including current orders, allied health and disaster recovery consultant notes, labs/imaging and performed day elements of exam and I formulated the plan of care and facilitated the medical decision making and confirmed the nurse practitioner note, as above Documented By: Elham Mendoza APRN 11/20/21 1 310 Signed By: <Electronically signed by HEIDI Mendoza> 11/20/21 1321 <Electronically signed by Alcides Moya MD> 11/23/21 4445 [facility] Work Phone: 1(812) 603-871109-08-2022 Progress note Author Rosa Maria Odell [facility] November 19, 2021 5:37pm Note Date/Time November 19, 2021 4:57pm [facility] [address] [place] [address] Hospitalist Progress Note Signed Patient: Alton Barker MR#: [id number] : 1940 Acct:[id number] Age/Sex: 81 / F Adm Date: 2 Loc: Room: 5O4770-4 Type: ADM IN Attending Dr: Alcides Moya [...] mg 11/11/21 14:29 Bisacodyl 10 Mg Supp.Rect OK 11/11/22 14:28 DAILY PRN Constipation Carbidopa/Levodopa 1.5 [...] 14:29 Docusate Enema 283 Mg/5 Ml Enema OK 11/11/22 14:28 DAILY PRN Constipation Lactulose 30 [...] 11/12/21 07:30 11/19/21 05:32 Omeprazole 20 Mg Capsule.Dr PO 11/12/22 07:29 [...] by Rosa Maria Odell MD> 11/19/21 1737 [facility] Work Phone: 1(103) 433-972909-07-2022 Progress note Author Alcides Moya [facility] November 18, 2021 12:40pm Note Date/Time November 17, 2021 10:56am [facility] [address] [place] [address] Physiatry(Rehab) Progress Note Signed Patient: Alton Barker MR#: [id number] : 1940 Acct:[id number] Age/Sex: 81 / F Adm Date: 2 Loc: Room: 4J5562-6 Type: ADM IN Attending Dr: Alcides Moya [...] mg 11/11/21 14:29 Bisacodyl 10 Mg Supp.Rect OK 11/11/22 14:28 DAILY PRN Constipation Carbidopa/Levodopa 1.5 [...] 14:29 Docusate Enema 283 Mg/5 Ml Enema OK 11/11/22 14:28 DAILY PRN Constipation Lactulose 30 [...] Tablet PO 11/11/22 16:59 1,000 mg BID.WITH.MEALS KALYIN Administration Metoprolol Tartrate 75 mg 11/11/21 21:00 [...] Allied health note review, nursing note review, disaster recovery consultant note review, discussion with nursing and case management, and more than 50% of my time was spent on counseling and coordination of care, time spent 23 minutes Patient was personally seen by me, Dr. Moya, on the day of encounter, reviewed the history and the relevant portions of the chart, including current orders, allied health and disaster recovery consultant notes, labs/imaging and performed day elements [...] signed by Alcides Moya MD> 11/18/21 1240 [facility] Work Phone: 1(336) 419-854309-03-2022 Progress note Author Alcides Moya [facility] November 14, 2021 8:45am Note Date/Time November 13, 2021 3:25pm [facility] [address] [place] [address] Physiatry(Rehab) Progress Note Signed Patient: Alton Barker MR#: [id number] : 1940 Acct:[id number] Age/Sex: 81 / F Adm Date: 2 Loc: Room: 9G5436-0 Type: ADM IN Attending Dr: Alcides Moya MD Copies to: ~ Date of Service: 11/13/2021 Subjective Subjective Narrative: Ms. Barker is a 81 year old female With history of Parkinson's disease, followed at the [facility], admitted to the rehabilitation unit with [...] mg 11/11/21 14:29 Bisacodyl 10 Mg Supp.Rect OK 11/11/22 14:28 DAILY PRN Constipation Carbidopa/Levodopa 1.5 [...] 14:29 Docusate Enema 283 Mg/5 Ml Enema OK 11/11/22 14:28 DAILY PRN Constipation Lactulose 30 [...] 11/12/21 07:30 11/13/21 05:58 Omeprazole 20 Mg Capsule.Dr PO 11/12/22 07:29 [...] Acute (10) Chronic anticoagulation: Code(s): Z79.01 - tank 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 (current) use of anticoagulants Status: Acute (11) Urinary tract infection: Code(s): N39.0 - Urinary tract infection, site not specified Status: Acute (12) Back pain: Code(s): M54.9 - Dorsalgia, unspecified Status: Acute Plan 81-year-old female with history of Parkinson's disease, follows at the [facility], admitted to the rehabilitation unit with [...] and self-care. Discharge planning:Insurance denial overturned via [id number]. 2 weeks approved. Plan for discharge home November 25 Plan: I completed a substantive portion of this encounter, the medical decision makingportion of this note in its entirety, including Allied health note review, nursing note review, disaster recovery consultant note review, discussion with nursing and case management, and more than 50% of my time was spent on counseling and coordination of care, time spent 26minutes Patient was personally seen by me, Dr. Moya, on the day of encounter, reviewed the history and the relevant portions of the chart, including current orders, allied health and disaster recovery consultant notes, labs/imaging and performed day elements of exam and I formulated the plan of care and facilitated the medical decision making and confirmed the nurse practitioner note, as above Documented By: Alcides Moya MD 11/13/21 1525 Signed By: <Electronically signed by Alcides Moya MD> 11/14/21 0845 [facility] Work Phone: 1(866) 905-594709-01-2022 Consult note Author Justice De Oliveira [facility] November 12, 2021 5:09pm Note Date/Time November 12, 2021 3:21pm [facility] [address] [place] [address] Hospitalist Consult Note Signed Patient: Alton Barker MR#: [id number] : 1940 Acct:[id number] Age/Sex: 81 / F Adm Date: 2 Loc: Room: 0N0295-4 Type: ADM IN Attending Dr: Alcides Moya MD Copies to: MD Justice Pate DO Lynn A Stackhouse, ANP-BC Honey Rabago DO~ HPI DATE OF CONSULTATION: [...] incontinence. Patient with underlying Parkinson's follows with [facility] neurology and movement disorder clinicians there. [...] noted below or in HPI [facility] Attestation Statement: The following information was validated [...] mg-vit E 90 mg-zinc 40 mg-copper 1 im-neeccz-opnxqm capsule (PreserVision AREDS-2) 1 tab PO BID [...] mg 11/11/21 14:29 Bisacodyl 10 Mg Supp.Rect OK 11/11/22 14:28 DAILY PRN Constipation Carbidopa/Levodopa 1.5 [...] 14:29 Docusate Enema 283 Mg/5 Ml Enema OK 11/11/22 14:28 DAILY PRN Constipation Lactulose 30 [...] % (Auto) 45.9, Lymph % (Auto) 39.7, Anson % (Auto) 10.1, Eos % (Auto) 3.8, Baso % (Auto) 0.5, Neut # (Auto) 2.3, Lymph # (Auto) 2.0, Anson # (Auto) 0.5, Eos # (Auto) 0.2, [...] signed by Justice De Oliveira DO> 11/12/21 9659 [facility] Work Phone: 1(182) 769-858008-31-2022 History and physical note Author Alcides Moya [facility] November 11, 2021 6:55pm Note Date/Time November 11, 2021 1: 26pm [facility] [address] [place] [address] Physiatry (Rehab) H&P Signed Patient: Alton Barker MR#: [id number] : 1940 Acct:[id number] Age/Sex: 81 / F Adm Date: 2 Loc: Room: [address] [place] [address] Type: ADM IN Attending Dr: Alcides Moya MD Copies to: MD Honey Pate DO~ Date of Service: 11/11/2021 HPI The patient was seen and examined on: 11/11/21 Etiologic Diagnosis/Impairment Group: 08.9 History of Present Illness: Ms. Barker is a 81 year old female With history of Parkinson's disease, followed at the [facility], admitted to the rehabilitation unit with [...] Lives at home with her son and [id number]. Chronic conditions are otherwise stable with current [...] mg-vit E 90 mg-zinc 40 mg-copper 1 kq-dytzrh-dhcetv capsule (PreserVision AREDS-2) 1 tab PO BID [...] 14 days Expected Discharge Destination: Home Rehabilitation [facility]: 08.9 Primary Diagnosis: L1 compression fracture h/o [...] 24 hour daily monitoring and intervention from Bulk Cooler Installer as well as other consulting physicians including internal medicine as well as 24 hour daily e business consultant nursing - for medical safe / optimal [...] Acute (10) Chronic anticoagulation: Code(s): Z79.01 - tank 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 (current) use of anticoagulants Status: Acute (11) Urinary tract infection: Code(s): N39.0 - Urinary tract infection, site not specified Status: Acute (12) Back pain: Code(s): M54.9 - Dorsalgia, unspecified Status: Acute Plan 81-year-old female with history of Parkinson's disease, follows at the [facility], admitted to the rehabilitation unit with [...] and self-care. Discharge planning:Insurance denial overturned via ugiv-qa-ylow. Plan for discharge home in 1 to 2 weeks. Plan: I completed a substantive portion of this encounter, the medical decision making portion of this note in its entirety, including Allied health note review, nursing note review, disaster recovery consultant note review, discussion with nursing and case management, and more than 50% of my time was spent on counseling and coordination of care, time spent 65 minutes Patient was personally seen by me, Dr. Moya, on the day of encounter, reviewed the history and the relevant portions of the chart, including current orders, allied health and disaster recovery consultant notes, labs/imaging and performed day elements of exam and I formulated the plan of care and facilitated the medical decision making and confirmed the nurse practitioner note, as above Documented By: Alcides Moya MD 11/11/211853 Signed By: <Electronically signed by Alcides Moya MD> 11/11/211854 [facility] Work Phone: 1(986) 479-437108-25-2022 Miscellaneous Notes* Telephone Encounter - Gloria Perez APRN.CNP - 11/05/2021 1:45 PM EDT This has been noted. Gloria Perez APRN-ELDON * Telephone Encounter - Chiqui Vásquez RN - 11/05/2021 1:30 PM EDT Update shared with ELDON LOUISE. CLAYTON Spencer, RN November 05, 2021 1:30 PM * [...] to in-health rehab. Currently she is at [facility] in [place] - Room 3009 Bed. 2. * Telephone Encounter - Lyly Pedersen - 11/05/2021 1:04 PM EDT ----- Message from Gloria Perez APRN.DIGITAL IMAGING SPECIALIST sent at 11/03/2021 8:01 AM EDT ----- [...] know. Thank you, Gloria documented in this [facility]-2022 History and physical note Author Enrrique Mota [facility] November 04, 2021 8:55pm Note Date/Time November 04, 2021 6: 26pm [facility] [address] [place] [address] Hospitalist H&P Signed Patient: Alton Barker MR#: [id number] : 1940 Acct:[id number] Age/Sex: 81 / F Adm Date: 2 Loc: Room: [address] [place] [address] Type: ADM IN Attending Dr: Enrrique Mota [...] mg-vit E 90 mg-zinc 40 mg-copper 1 wv-eohwlg-hiqjbq capsule (PreserVision AREDS-2) 1 tab PO BID [...] % (Auto) 20.3 % (.) 11/04/21 16:40 Anson % (Auto) 9.7 % (.) 11/04/21 16:40 Eos % (Auto) 1.7 % (.) 11/04/21 16:40 Baso % (Auto) 0.6 % (.) 11/04/21 16:40 Neut # (Auto) 5.3 x10E3/uL (1.8-7.7) 11/04/21 16:40 Lymph # (Auto) 1.6 x10E3/uL (1.00-4.8) 11/04/21 16:40 Anson # (Auto) 0.8 x10E3/uL (0.0-0.8) 11/04/21 16:40 [...] <Electronically signed by Enrrique Mota MD> 11/04/212054 [facility] Work Phone: [phone]) 409-279908-11-2022 Evaluation note* Encounter Date Diagnosis Assessment Notes [...] 2 weeks. Seen by Justin Nicolas PharmD [email or web address] Other 07-21-2022 Instructions* Patient Instructions* Gloria Perez [...] or you can send a message through [employer]. You can also now schedule and select appointments through [employer]. Gloria Perez APRN.ELDON documented in this encounterCincinnati [facility] Center07-21-2022 History of Present illness Narrative* Gloria Perez APRN.CNP - 10/01/2021 12:13 PM EDT [facility] - FOLLOW UP EVALUATION Honey Rabago, DO, DO [address] [facility] [address] I had the pleasure of seeing Ms. [...] loss is noticeable but LTM is good. [place] Cognitive Assessment (MoCA): 29 (02/03/2021 10:50 AM) [...] is now living with her son and wcaciqvm-bt-cpk. She has not been taking her medication [...] 1.5 1.5 Effexor Level of service : 10325 (40-54 min). Time spent 49 (12:14pm-1:03pm) min on the day of service, which included preparing to see the patient, zrjc-mt-thjk patient care, completing clinical documentation, obtaining and/or reviewing separately obtained history, performing a medically appropriate examination, counseling and educating the patient/family/caregiver and ordering medications, tests, or procedures. Gloria Perez APRN.DIGITAL IMAGING SPECIALIST documented in this encounterCincinnati Va Medical Center07-19-2022 Evaluation note* Encounter Date Diagnosis [...] 3 weeks. Seen by Juliana Ozuna RN [email or web address] Other 06-28-2022 NoteHISTORY: Bone density screening. COMPARISON: [...] and signed by Delgado Moya on 09/08/[address] [place], [place] 6204806-15-2022 Evaluation note* Encounter Date Diagnosis Assessment Notes [...] significant other. Seen by Juliana Ozuna RN [employer] Other 05-25-2022 Evaluation note* Encounter Date Diagnosis [...] INSTRUCTIONS: Please take as instructed above. Notify [facility] Anticoagulation [facility] [phone] option 5 for the following: -Call immediately [...] person tells you to adjust your warfarin. [email or web address] Other 05-09-2022 Evaluation note* Encounter Date Diagnosis [...] significant other. Seen by Justin Nicolas PharmD [email or web address] Other 03-30-2022 Evaluation note* Encounter Date Diagnosis [...] family. Calendar provided. Seen by Anu Alva RP/Anuradha Case LPN [facility] [employer] Other 03-15-2022 Evaluation note* Encounter Date Diagnosis [...] she voiced understanding. Seen by Anu Alva michelle [employer] [facility] Other 01-12-2022 Evaluation note* Encounter Date Diagnosis [...] 3 weeks. Seen by Justin Nicolas PharmD [facility] [employer] Other 12-15-2021 Evaluation note* Encounter Date Diagnosis [...] 4 weeks. Seen by Juliana Ozuna RN [email or web address] Other 11-17-2021 Evaluation note* Encounter Date Diagnosis [...] 4 weeks. Seen by Juliana Ozuna RN [email or web address] Other 09-29-2021 Evaluation note* Encounter Date Diagnosis [...] 4 weeks. Seen by Justin Nicolas PharmD [email or web address] Other Consult note Author Jairo Benson [facility] November 05, 2021 3:10pm Note Date/Time November 05, 2021 3: 10pm [facility] [address] [place] [address] Psychiatry Consult Note Signed Patient: Alton Barker MR#: [id number] : 1940 Acct:[id number] Age/Sex: 81 / F Adm Date: 2 Loc: Room: [address] [place] [address] Type : ADM INOo Attending Dr: Enrrique [...] mg-vit E 90 mg-zinc 40 mg-copper 1 op-uocuwe-stqcjh capsule (PreserVision AREDS-2) 1 tab PO BID [...] Cloudy A Urine pH 5.5 Ur Specific [place] 1.029 Urine Protein 30 H Urine Glucose [...] 1509 Signed By: <Electronically signed by Jairo Bneson MD> 11/05/21 1510 [facility] Work Phone: Consult note Author Oswaldo Almonte [facility] November 06, 2021 11:33am Note Date/Time November 06, 2021 11 :33am [facility] [address] [place] [address] Neurosurgery Consult Note Signed Patient: Alton Barker MR#: [id number] : 1940 Acct:[id number] Age/Sex: 81 / F Adm Date: 2 Loc: Room: [address] [place] [address] Type: ADM INOo Attending Dr: Enrrique Mota [...] mg-vit E 90 mg-zinc 40 mg-copper 1 nw-omevdb-uvcont capsule (PreserVision AREDS-2) 1 tab PO BID [...] Cloudy A, Urine pH 5.5, Ur Specific [place] 1.029, Urine Protein 30 H, Urine Glucose [...] % (Auto) 67.7, Lymph % (Auto) 20.3, Anson % (Auto) 9.7, Eos % (Auto) 1.7, Baso % (Auto) 0.6, Neut # (Auto) 5.3, Lymph # (Auto) 1.6, Anson # (Auto) 0.8, Eos # (Auto) 0.1, [...] <Electronically signed by MD Oswaldo Almonte> 11/06/21 2941 [facility] Work Phone: Discharge summary Author Gaye Claire [facility] November 11, 2021 5:21pm Note Date/Time November 10, 2021 11 :33am [facility] [address] [place] [address] Discharge Summary Signed Patient: Alton Barker MR#: [id number] : 1940 Acct:[id number] Age/Sex: 81 / F Adm Date: 2 Loc: Room: [address] [place] [address]: Gaye Claire MD Copies to: [...] movement disorderspecialist Gloria Lal nurse practitioner at [facility] routinely. She was continued on her [...] Discharge Plan Discharge Plan Patient Disposition: [place] [facility] Activity: No Activity Restriction Diet: Regular Additional [...] 2 1300 Signed By: <Electronically signed by MARJORIECHEN Suh> 11/11/21 1356 <Electronically signed by Gaye Claire MD> 11/11/21 1721 [facility] Work Phone: evaluation noteNo assessment information available [facility] noteNo InformationNort [employer] Other evaluation note* Diagnosis Recurrent episodes of unresponsiveness- Primary Parkinson's disease (HCC) Paralysis agitans Depression with anxiety Dysthymic disorder Fatigue, unspecified type Excessive daytime sleepiness documented in this encounter [facility]* Diagnosis Onset Date Resolution [...] disease acute Urinary tract infection acut e [facility] Work Phone: Evaluation note* Diagnosis Onset [...] cute Parkinsons disease acute [facility]inary tract [facility] Work Phone: Evaluation note* Diagnosis Parkinson's disease (HCC) Paralysis agitans documented in this encounter [facility]* Diagnosis Parkinson's disease (HCC)- Primary Paralysis agitans Depression with anxiety Dysthymic disorder documented in this encounter [facility]* Diagnosis Parkinson's disease without dyskinesia, with fluctuating manifestations- Primary Depression with anxiety Dysthymic disorder documented in this encounter [facility]* Diagnosis Parkinson's disease Paralysis agitans documented in this encounter [facility]* Diagnosis Depression with anxiety- Primary Dysthymic disorder Parkinson's disease without dyskinesia, with fluctuating manifestations (HCC) Sialorrhea Disturbance of salivary secretion documented in this encounter [facility] general Narrative - Reported* Type Description Date Medical History diabetes mellitus Medical History coronary artery disease Medical History Hypothyroidism Medical History Esophageal reflux Medical History depression Medical History essential tremor Surgical History tonsillectomy Surgical History cholecystectomy Surgical History appendectomy Surgical History hemorrhoidectomy Surgical History colonoscopy Surgical History heart catheterization Hospitalization History see above [facility] [employer] Other History general Narrative - [facility]Well[facility] Other Progress note Author Enrrique Mota [facility] November 06, 2021 7:31am Note Date/Time November 05, 2021 3: 01pm [facility] [address] [place] [address] Hospitalist Progress Note Signed Patient: Alton Barker MR#: [id number] : 1940 Acct:[id number] Age/Sex: 81 / F Adm Date: 2 Loc: Room: [address] [place] [address] Type: ADM INOo Attending Dr: Enrrique Mota MD Copies to: ~ Date of Service: 11/05/2021 Subjective Subjective Narrative: Patient seen and examined, sitting up in chair at time of exam. She is pleasant, mildly confused. She is oriented to self, knows she is at [facility]. Initially states year is 1920, then corrects [...] 20 mg 11/06/21 07:30 Omeprazole 20 Mg Capsule. PO 11/06/22 07:29 DAILY.AC.BKFAST KAYLIN Oxycodone HCl [...] ZZ.Pharmacy Consult Protocol Warfarin Sodium 2 mg 08/25/22 17:00 Warfarin 2 Mg Tablet PO 11/05/21 [...] where she lives with her son and cbwprbkx-yq-sib Impaired mobility and ADLs Parkinson's disease ? Patient follows with neurology, Dr. Lal, and movement disorder specialist,Gloria Lal CNP, at [facility] ? Continue Sinemet ? PT/OT eval's [...] <Electronically signed by Enrrique Mota MD> 11/06/21 0787 [facility] Work Phone: Progress note Author Enrrique Mota [facility] November 07, 2021 4:52pm Note Date/Time November 06, 2021 11 :01am [facility] [address] [place] [address] Hospitalist Progress Note Signed Patient: Alton Barker MR#: [id number] : 1940 Acct:[id number] Age/Sex: 81 / F Adm Date: 2 Loc: Room: [address] [place] [address] Type: ADM INOo Attending Dr: Enrrique Mota MD Copies to: ~ Date of Service: 11/06/2021 Subjective Subjective Narrative: Patient is seen and examined. She is sitting up in bed at time of exam. When asked how she is feeling, she states not well, I am confused . She has howeveroriented to self, knows she is at [facility], and was able to tell me events surrounding her admission. She showed me a paper with half-way facilities listed on it, and indicated that [...] where she lives with her son and uduxnhzd-vf-kpu Impaired mobility and ADLs Parkinson's disease ? Patient follows with neurology, Dr. Lal, and movement disorder specialist,Gloria Lal, ELDON, at [facility] ? Continue Sinemet ? PT/OT recommending [...] <Electronically signed by Enrrique Mota MD> 11/07/21 1658 [facility] Work Phone: Progress note Author Enrrique Mota [facility] November 07, 2021 4:47pm Note Date/Time November 07, 2021 11 :18am [facility] [address] [place] [address] Hospitalist Progress Note Signed Patient: Alton Barker MR#: [id number] : 1940 Acct:[id number] Age/Sex: 81 / F Adm Date: 2 Loc: Room: [address] [place] [address] Type: ADM INOo Attending Dr: Enrrique Mota [...] Capsule PO 11/05/22 08:59 125 mcg DAILY KAYLNI Administration Warfarin Sodium 1 each 11/04/21 18:21 [...] where she lives with her son and hamxnkuz-sk-bki Impaired mobility and ADLs Parkinson's disease ? Patient follows with neurology, Dr. Lal, and movement disorder specialist,Gloria Lal, ELDON, at [facility] ? Continue Sinemet ? PT/OT recommending [...] <Electronically signed by Enrrique Mota MD> 11/07/21 8073 [facility] Work Phone: Progress note Author Enrrique Mota [facility] November 08, 2021 5:13pm Note Date/Time November 08, 2021 10 :47am [facility] [address] [place] [address] Hospitalist Progress Note Signed Patient: Alton Barker MR#: [id number] : 1940 Acct:[id number] Age/Sex: 81 / F Adm Date: 2 Loc: Room: [address] [place] [address] Type: ADM INOo Attending Dr: Enrrique Mota [...] Capsule PO 11/05/22 08:59 125 mcg DAILY KAYLNI Administration Warfarin Sodium 1 each 11/04/21 18:21 [...] where she lives with her son and fitlfqln-bs-koj Impaired mobility and ADLs Parkinson's disease ? Patient follows with neurology, Dr. Lal, and movement disorder specialist,Gloria Lal, ELDON, at [facility] ? Continue Sinemet ? PT/OT recommending [...] signed by Enrrique Mota MD> 11/08/21 1713 [facility] Work Phone: Progress note Author Gaye Claire [facility] November 10, 2021 4:37pm Note Date/Time November 09, 2021 1: 11pm [facility] [address] [place] [address] Hospitalist Progress Note Signed Patient: Alton Barker MR#: [id number] : 1940 Acct:[id number] Age/Sex: 81 / F Adm Date: 2 Loc: Room: 6J9700-1 Type: ADM INOo Attending Dr: Gaye Claire [...] movement disorder specialist, Gloria Lal CNP at [facility] ?Continue Sinemet UTI Ecoli ?ceftriaxone initiated 11/06, change to Cefdinir at [place] for 7 day total course last dose 11/12 Depression ?Psychiatry evaluated. Remeron and Effexor initiated Chronic conditions 1. Hypothyroidism?levothyroxine 2. GERD?omeprazole 3. T2DM?metformin 4. hx DVT?Coumadin, pharmacy to dose, trend INR. INR was supratherapeutic on admit 5. Dyslipidemia?atorvastatin 6. Hypertension?metoprolol, BPs reviewed and controlled Documented By: WILFRID Samuels 2 1311 Signed By: <Electronically signed by ANP-BC Tonya Larsenhouse> 11/09/21 1551 <Electronically signed by Gaye Claire MD> 11/10/21 1637 [facility] Work Phone: Progress note Author Gaye Claire [facility] November 11, 2021 5:21pm Note Date/Time November 10, 2021 5: 36pm [facility] [address] [place] [address] Hospitalist Progress Note Signed Patient: Alton Barker MR#: [id number] : 1940 Acct:[id number] Age/Sex: 81 / F Adm Date: 2 Loc: Room: [address] [place] [address] Type: DIS INOo Attending Dr: Gaye Claire [...] movement disorder specialist, Gloria Lal CNP at [facility] ?Continue Sinemet UTI Ecoli ?ceftriaxone initiated 11/06, change to Cefdinir at [place] for 7 day total course last dose 11/12 Depression ?Psychiatry evaluated. Remeron and Effexor initiated Chronic conditions 1. Hypothyroidism?levothyroxine 2. GERD?omeprazole 3. T2DM?metformin 4. hx DVT?Coumadin, pharmacy to dose, trend INR. INR was supratherapeutic on admit 5. Dyslipidemia?atorvastatin 6. Hypertension?metoprolol, BPs reviewed and controlled Documented By: FIGUEROA Samuels-BC 2 1736 Signed By: <Electronically signed by ANP-BC Tonya Suh> 11/10/21 1757 <Electronically signed by Gaye Claire MD> 11/11/21 1721 [facility] Work Phone: Reason for referral (narrative)* Outpatient Procedure (Routine) - Pending Review Specialty Diagnoses / Procedures Referred By Contact Referred To Contact NEUROLOGICAL GRANITE QUARRY Diagnoses Recurrent episodes of unresponsiveness Procedures EPIL EEG ROUTINE ELECTROENCEPHALOGRAM REC COMA/SLEEP ONLY Gloria Perez APRN.CNP [address] [place] [address] [place] [id number] [place] [id number] Referral ID Status Reason Start Date Expiration Date Visits Requested Visits Authorized [id number] Pending Review Auto-Generat ed Referral 10/04/2021 10/04/2022 1 1 [facility] Summary Purpose Family History No Family History Records Found Relationship Condition Age at Onset Recorded Date/T denis Not Specified No pertinent family history Unknown Advance Directives No Advanced Directives Records Found Advance Directive Response Recorded Date/ Time Advance Directives No May 23 021 10:53am Advance Directive Response Recorded Date/ Time Advance Directives No March 12th, 2 021 9:53am Chief Complaint and Reason for Visit [...] (HCC) Procedures PROVIDER ORDERED FOLLOW UP OFFICE/OUTPATIENT [facility] 60-74 MINUTES Gloria Perez APRN.DIGITAL IMAGING SPECIALIST [address] [place] [address] Referral ID Status Reason Start Date Expiration Date Visits Requested Visits Authorized [id number] Pending Review PCP Requested Referral 3 07/08/2023 1 1 Additional Source Comments INFORMATION SOURCE (unrecogn ized section and content) DATE CREATED AUTHOR 11/02/2017 [facility] DATE CREATED AUTHOR AUTHOR'S ORGANIZ ATION 09/09/2021 [facility] dical Specialist DATE CREATED AUTHOR AUTHOR'S ORGANIZ ATION 06/01/2022 [facility] DATE CREATED AUTHOR AUTHOR'S ORGANIZ ATION 07/23/2022 [facility] DATE CREATED AUTHOR AUTHOR'S ORGANIZ ATION 06/25/2023 [facility] DATE CREATED AUTHOR AUTHOR'S ORGANIZ ATION 08/20/2023 [facility] dical Specialists EPIC Goals (unrecognized section and [...] disease Procedures PROVIDER ORDERED FOLLOW UP OFFICE/OUTPATIENT [facility] 60-74 MINUTES Gloria Perez, HEIDI.DIGITAL IMAGING SPECIALIST [address] [place] [address] Referral ID Status Reason Start Date Expiration Date Visits Requested Visits Authorized [id number] Pending Review PCP Requested Referral 3 07/08/2023 1 1 Reason Comments Medication Problem Reason Comments Parkinson's Disease Follow Up Source Comments (unrecognize d section and content) In the event this informatio n is protected by the Federal Confidentiality of Alcohol and Drug Abuse Patient Records regulations: The Federal rules restrict any use of the information to criminally investigate or prosecute any alcohol or drug abuse patient.[facility] Center[facility] the event this information is protected by the Federal Confidentiality of Alcohol and Drug Abuse Patient Records regulations: The Federal rules restrict any use of the information to criminally investigate or prosecute any alcohol or drug abuse patient.[facility] CenterIn the event this information is protected by the Federal Confidentiality of Alcohol and Drug Abuse Patient Records regulations: The Federal rules restrict any use of the information to criminally investigate or prosecute any alcohol or drug abuse patient.[facility] CenterIn the event this information is protected by the Federal Confidentiality of Alcohol and Drug Abuse Patient Records regulations: The Federal rules restrict any use of the information to criminally investigate or prosecute any alcohol or drug abuse patient.[facility] CenterIn the event this information is protected by the Federal Confidentiality of Alcohol and Drug Abuse Patient Records regulations: The Federal rules restrict any use of the information to criminally investigate or prosecute any alcohol or drug abuse patient.[facility] CenterIn the event this information is protected by the Federal Confidentiality of Alcohol and Drug Abuse Patient Records regulations: The Federal rules restrict any use of the information to criminally investigate or prosecute any alcohol or drug abuse patient.[facility] CenterIn the event this information is protected by the Federal Confidentiality of Alcohol and Drug Abuse Patient Records regulations: The Federal rules restrict any use of the information to criminally investigate or prosecute any alcohol or drug abuse patient.[facility] CenterIn the event this information is protected by the Federal Confidentiality of Alcohol and Drug Abuse Patient Records regulations: The Federal rules restrict any use of the information to criminally investigate or prosecute any alcohol or drug abuse patient.[facility] CenterIn the event this information is protected by the Federal Confidentiality of Alcohol and Drug Abuse Patient Records regulations: The Federal rules restrict any use of the information to criminally investigate or prosecute any alcohol or drug abuse patient.[facility] CenterIn the event this information is protected by the Federal Confidentiality of Alcohol and Drug Abuse Patient Records regulations: The Federal rules restrict any use of the information to criminally investigate or prosecute any alcohol or drug abuse patient.[facility] Care Teams (unrecognized sec tion [...] MD Other Provider Active Faustina Barr , SENIOR MAINTENANCE MECHANIC-C Other Provider Active Valente Lauren MD Other [...] Status: Inactive Member Role Status Dates Honey Carrascolloydaura , DO Primary Care Provider Active Marvin Peter , DO Emergency Provider Active Enrrique Mota MD Admit Provider Active Jairo Benson MD Other Provider Active Oswaldo Almonte MD Other Provider Active Gaye Claire MD Attending Provider Active Station Installer And Repairer Relationship Specialty Start Date End Date Honey Rabago, DO [address] [place] [address] PCP - General 02/16/05 Station Installer And Repairer Relationship Specialty Start Date End Date Honey Rabago, DO [address] [place] [address] PCP - General 02/16/05 Station Installer And Repairer Relationship Specialty Start Date End Date Honey Rabago, DO [address] [place] [address] PCP - General 02/16/05 Team Status: Active Member Role Status Dates Honey Carrascokoki , Primary Care Provider Active Alcides Moya [...] Ziegler MD Other Provider Active Chery Coronado , INTERNAL COMBUSTION ENGINE INSPECTOR Other Provider Active José Miguel Tellez , DO Other Provider Active George Chan MD Other Provider Active Justice De Oliveira , DO Other Provider Active Enrrique Mota MD Other Provider Active Rosa Maria Odell MD Other Provider Active Tonya Suh , ANP- Other Provider Active Juan Wallace MD Other Provider Active Jerson Walker MD Other Provider Active Gaye Claire MD Other Provider Active Queta Mclain MD Other Provider Active Rd Blackmon MD Other Provider Active Anibal Gallagher MD Other Provider Active Damion Thapa MD Other Provider Active Faustina Barr , SENIOR MAINTENANCE MECHANIC-C Other Provider Active Valente Lauren MD Other [...] Primary Care Provider, Attending Paula mock Active Station Installer And Repairer Relationship Specialty Start Date End Date Honey Rabago, DO [address] [place] [address] PCP - General 02/16/05 Station Installer And Repairer Relationship Specialty Start Date End Date Honey Rabago, DO [address] [place] [address] PCP - General 02/16/05 Station Installer And Repairer Relationship Specialty Start Date End Date Honey Rabago, DO [address] [place] [address] PCP - General 02/16/05 Station Installer And Repairer Relationship Specialty Start Date End Date Honey Rabago, DO [address] [place] [address] PCP - General 02/16/05 Station Installer And Repairer Relationship Specialty Start Date End Date Honey Rabago, DO [address] [place] [address] PCP - General 02/16/05 Station Installer And Repairer Relationship Specialty Start Date End Date Honey Rabago DO [address] [place] [address] PCP - General 02/16/05 Station Installer And Repairer Relationship Specialty Start Date End Date Honey Rabago, PCP - General Internal Medicine 07/28/22 Station Installer And Repairer Relationship Specialty Start Date End Date Honey Rabago DO [address] [place] [address] PCP - General 02/16/05 FOR RECORDS PERTAINING [...] BE BASED ON THE PRIMARY CLINICAL RECORDS. [facility] [employer] [facility]. provides no warranty or guarantee of the accuracy or completeness of information in this document.
--- OUTSIDE RECORDS SUMMARY | 2023-10-12 08:20 | XMS_ITS | CCD ---
Author Organization [facility] ion [facility] Care Team Providers Care Italian Lecturer Name Role Phone Honey Rabago Primary Care Provider [phone] Honey Rabago Attending Provider [phone] Anu Alva Unavailable Honey Rabago DO Primary Care Provider Honey Rabago DO Primary Care Provider Oswaldo Almonte Unavailable DO Honey Rabago Primary Care Provider DO Sumanth Lowe Emergency Provider DO Holger Dorado Emergency Provider [phone] DO Honey Rabago Attending Provider DO Marvin [...] Provider MD Damion Thapa Other Provider Cortney, STRAPPING MACHINE TENDER-C Faustina Quiroga Other Provider MD Valente Lauren [...] Care Provider DO Marvin Peter Emergency Provider [phone] MD Enrrique Mota Admit Provider MD Jairo Benson Other Provider [phone] MD Oswaldo Almonte Other Provider MD Gaye Claire Attending Provider [phone] MD Alcides Moya Admit Provider MD Alcides Moya Attending Provider KORTNEY Mehta Other Provider Unavailable KORTNEY Hannah Other Provider Unavailable KORTNEY Dutton Other Provider Unavailable KORTNEY Garrett Other Provider Unavailable Sarah RN Karen Other Provider Unavailable KORTNEY Ayon Other Provider Unavailable MD Familia Villatoro Other Provider MD Misha Ziegler Other Provider Dials, SALES AGENT PEST CONTROL SERVICE Chery M Other Provider DO José Miguel [...] Provider DO Honey Rabago Primary Care Provider [phone] DO Honey Rabago Attending Provider Honey Rabago [...] Consulting Unavailable Queta Mclain Consulting Unavailable Rd [employer] Unavailable Anibal Gallagher Consulting Unavailable Damion [...] Vaschak DO, Honey J Primary Care Provider [phone] GLORIA PEREZ Attending Unavailable HONEY RABAGO Primary [...] source) buPROPion Drug Allergy 08-01-19 21 Hallucinating [facility] Latex (1 source) Latex Substance Allergy 08-01-19 Rash [facility] Opioid Agonists (1 source) HYDROcodone Drug Allergy 08-01-19 21 Unknown Reaction [facility] (20 sources) Acetaminophen / HYDROcodone; Translations: [Vicodin] Drug Allergy Unknown [facility] Repository (20 sources) buPROPion; Translations: [BUPROPION] Drug Allergy 01-19-20 17 Mental Status Change, Other [facility] Work Phone: (20 sources) Latex Propensity to adverse reactions 11-05-19 22 Unknown, [facility] (12 sources) Acetaminophen / HYDROcodone; Translations: [HYDROCODONE-ACET AMINOPHEN] Drug Allergy 04-13-19 17 Mental Status Change, Other [facility] (11 sources) Adhesive Tape; Translations: [ADHESIVE TAPE (ROSINS)] Allergy to substance 01-13-20 [facility] Work Phone: (12 sources) Latex; Translations: [LATEX, NATURAL RUBBER] Drug Allergy 04-13-19 17 [facility] (11 sources) rosuvastatin; Translations: [ROSUVASTATIN CALCIUM] Drug Allergy 01-13-20 [facility] Work Phone: (7 sources) HYDROcodone; Translations: [hydrocodone] Drug Allergy 01-13-20 21 Unknown [facility] (1 source) buPROPion Drug Allergy 11-05-19 [facility] Repository (1 source) Latex Drug allergy (disorder) 11-05-19 [facility] Repository (1 source) natural latex rubber Drug allergy (disorder) The [facility] Repository (1 source) Rosuvastatin calcium Allergy to [...] 01/18/2023: Pt takes 2 tabs daily per [employer] med list 0 Active take 1 tablet by rc th every six hours as needed Acetaminophen 500 MG 1 tablet as needed Orally every 6 hrs Active Comment on above: Take 500 mg by mouth every 8 hours as needed. 01/18/2023: Pt takes 2 tabs daily per [facility] med list Aspir-81 (16 sources) Aspir-81 Active [...] Blood Gluc Sensor (FreeStyle Vivian [address]) [facility] (1 source) Start: 02-14-2023 Continuous Blood Gluc Sensor (FreeStyle Vivian [address]) 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 docusate sodium 50 mg / sennosides, halfway [...] therapy completed) take 1 capsule by mo [facility] every twenty-four hours Gabapentin 300 MG [...] 150 mg by mouth every morning. Vit C,I-Bv-Gtyzk-Lutei n-Zeaxan (Preservision Areds-2) 136-279-53-1 xx-ugqh-ei-mg Capsule (6 sources) Start: 01-18-2017 End: 07-10-2017 take 1 tablet by mouth once daily at bedtime Vit C,V-Rg-Jbaeg-Lutein-Ze axan (Preservision Areds-2) 373-406-29-1 qg-josu-rw-mg Capsule Discontinued 1 TAB PO every day in the morning and at bedtime January 18, 2017 7:43am July 10, 2017 6:45pm Start: 01-18-2017 End: 07-10-2017 take 1 tablet by mouth once daily at bedtime Vit C,V-Tu-Mqhqx-Lutein-Zeaxan (Preservision Areds-2) 384-273-87-1 fp-tcyy-km-mg Capsule Discontinued 1 TAB PO every day in the morning and at bedtime January 18, 2017 12:00am July 10, 2017 5:45pm Start: 01-18-2017 End: 07-10-2017 take 1 tablet by mouth once daily at bedtime Vit C,H-Ej-Mfrns-Lutein-Zeaxan (Preservision Areds-2) 163-915-63-1 gt-yiex-ev-mg Capsule Discontinued 1 TAB PO every day in the morning and at bedtime January 18, 2017 1:00am July 10, 2017 6:45pm Vit C,L-Lt-Sotyl-Lutein-Zeax an (Preservision Areds-2) 250-90-40-1 mg Capsule (5 sources) Start: 11-04-2021 End: 11-25-2021 Vit C,Z-Ie-Sfoxd-Lutein-Zeax an (Preservision Areds-2) 250-90-40-1 mg Capsule Discontinued 1 TAB PO Twice daily November 03, 2021 11:00pm November 25, 2021 3:32pm Start: 11-04-2021 End: 11-25-2021 Vit C,B-Cm-Xzaxn-Lutein-Zeax an (Preservision Areds-2) 250-90-40-1 mg Capsule Discontinued 1 TAB PO Twice daily November 04, 2021 12:00am November 25, 2021 4:32pm Start: 11-04-2021 Vit C,E-Zn-Body Hanger my-Dpfown-Tpdwla (Preservision Areds-2) 250-90-40-1 mg Capsule Active 1 [...] once daily. Take 2 tablets by mo [facility] once daily. Warfarin - Pharmacy Dosing (Coumadin [...] Coronary atherosclerosis; Translations: [Atherosclerotic heart disease of [place] coronary artery without angina pectoris] Onset: 12-20-2022 [...] sources) Long-term current use of anticoagulant; Translations: [rodent exterminator (current) use of anticoagulants] Onset: 11-01-2016 11-09-2021 Episodic Other aftercare (13 sources) correction (current) use of anticoagulants; Translations: [Long-term (current) use of anticoagulants] Onset: 11-04-2021 11-11-2021 Episodic Other aftercare (1 source) Anticoagulant effect; Translations: [rodent exterminator (current) use of anticoagulants] Onset: 12-20-2022 12-20-2022 [...] Test Name Value Interpretation Reference Range Facility [facility] 06-23-2023 CNOV Office Visit (NRMDN) -- ALTON BARKER ([id number]) 1940 F Date Time Provider Department 06/23/23 3:00 PM GLORIA PEREZ During your visit today, we recorded the following information about you: Weight Height 107.6 kg 1.676 m Gloria Perez APRN.CNP 06/23/2023 8:12 PM Signed [facility] - FOLLOW UP EVALUATION Honey Rabago DO [address] [place] [address] Dear Honey Rabago DO: I had the pleasure of seeing Ms. Barker for follow-up today. As you know she is a 82 year old right-handed female with a history of Parkinson's disease since 2013. She is seen with her son. Subjective Previous Plan-01/20/2023 Visit: Parkinson's disease: Continue current medication schedule but discuss with the casting house laborer if you can take the Sinemet on [...] No No (more content not included)... Normal [facility] ALL HEMOGLOBINon 04-27-2023 Hemoglobin (Bld) [Mass/Vol] 11.7 g/dL Low 12.0 - 16.0 g/dL [facility] Interpretation and review of laboratory results Abnormal [facility] XR CHEST 2 VIEWSon 4 XR CHEST [...] Moya, DO Normal Not Available Bebe 02-11-2023 [facility] Telephone (WALTERMDN) -- ALTON BARKER ([id number]) 1940 F Date Time Provider Department 02/11/23 GLORIA PEREZ During your visit today, we recorded the following information about you: Mary Anne Beatty 02/11/2023 1:54 PM Signed [id number] [place] [address] - [address] [facility] [phone] [id number] carbidopa-levodopa (SINEMET 25-100) 25-100 mg per tablet [...] Date Reviewed: 01/20/2023 Reviewed by: Gloria Perez APRN.PIPE MACHINE OPERATOR - Fully Assessed Reason for Visit: [...] 01/18/2023: Pt takes 2 tabs daily per [employer] med list - MEDICATION, NON-DATABASE 750 mg [...] BY MOUTH TWICE DAILY WITH FOOD - [place] Stem Cell VIVIAN 2 SENSOR kit apply 1 SENSOR [...] Of Date 02/11/2023 Noted Resolved OSTEOARTHROS KNEE [[id number]] 06/29/2012 Parkinson's disease without dyskinesia, with fl*03/02/2018 Obesity, Class I, BMI 30-34.9 [E66.9] 07/08/2022 Depression with anxiety [F41.8] 01/20/2023 Encounter Status:Closed by MARY ANNE BEATTY on 02/11/23 [facility] CNOVon 01-20-2023 CNOV Office Visit (NRMDN) -- ALTON BARKER ([id number]) 1940 F Date Time Provider Department 01/20/23 3:00 PM [facility] During your visit today, we recorded the following information about you: Height 1.676 m Gloria Perez APRN.[facility] 01/24/2023 12:36 PM Signed [facility] - FOLLOW UP EVALUATION Honey Rabago DO [address] [place] [address] Dear Honey Rabago DO: I had the [...] Change halluc (more content not included)... Normal [facility] CULTURE URINEon 07-16-2022 CULTURE URINE Isolate 1 [...] <=20 S F Normal The [facility] Comment on above: Performed By: #### U RCX #### [facility] Laboratory [address] [place] [address] Dr. Joyce Strauss UA (CLEAN/CATCH) CERTIFIED PROFESSIONAL CONTROLLER/MICRO I F IND.on 2022 Bilirubin Ql (U) Negative Normal NEGATIVE The [facility] Comment on above: Performed By: #### U MICRO, UACSIND #### [facility] Laboratory [address] [place] [address] Dr. Joyce Strauss Clarity (U) CLEAR Normal CLEAR [facility] Comment on above: Performed By: #### U MICRO, UACSIND #### [facility] Laboratory [address] [place] [address] Dr. Joyce Strauss Color (U) LT. YELLOW Normal YELLOW [facility] Comment on above: Performed By: #### U MICRO, UACSIND #### [facility] Laboratory [address] [place] [address] Dr. Joyce Strauss Glucose Ql (U) Negative Normal NEGATIVE The [facility] Comment on above: Performed By: #### U MICRO, UACSIND #### [facility] Laboratory [address] [address] [address] Joyce Strauss Hemoglobin Ql (U) Negative Normal NEGATIVE The [facility] Comment on above: Performed By: #### U MICRO, UACSIND #### [facility] Laboratory [address] [address] [address] Joyce Strauss Ketones Ql (U) Negative Normal NEGATIVE The [facility] Comment on above: Performed By: #### U MICRO, UACSIND #### [facility] Laboratory [address] [address] [address] Joyce Strauss LEUKOCYTES LARGE Abnormal NEGATIVE [facility] Comment on above: Performed By: #### U MICRO, UACSIND #### [facility] Laboratory [address] [address] [address] Joyce Strauss Nitrite Ql (U) Positive Abnormal NEGATIVE [facility] Comment on above: Performed By: #### U MICRO, UACSIND #### [facility] Laboratory [address] [address] [address] Joyce Strauss pH (U) 5.5 [pH] Normal 5-9 [facility] Comment on above: Performed By: #### U MICRO, UACSIND #### [facility] Laboratory [address] [place] [address] Dr. Joyce Strauss SPEC GRAVITY 1.010 Normal 1.005-<=1. 025 [facility] Comment on above: Performed By: #### U MICRO, UACSIND #### [facility] Laboratory [address] [address] [address] Joyce Strauss UA PROTEIN TRACE Normal NEGATIVE/ TRACE [facility] Comment on above: Performed By: #### U MICRO, UACSIND #### [facility] Laboratory [address] [address] [address] Joyce Strauss UR MICRO IND INDICATED Normal [facility] Comment on above: Performed By: #### U MICRO, UACSIND #### [facility] Laboratory [address] [address] [address] Joyce Strauss Urobilinogen Qn (U) 0.2 {Cam'U}/dL Normal 0.2 - 1. 0 [facility] Comment on above: Performed By: #### U MICRO, UACSIND #### [facility] Laboratory [address] [place] [address] Dr. Joyce Strauss URINE MICROSCOPIC ONLYon BACTERIA LARGE Abnormal NONE SEEN The [facility] Comment on above: Performed By: #### U MICRO, UACSIND #### [facility] Laboratory [address] [place] [address] Dr. Joyce Strauss Bacteria identified Cx Nom (U) INDICATED Normal [facility] Comment on above: Performed By: #### U MICRO, UACSIND #### [facility] Laboratory [address] [place] [address] Dr. Joyce Strauss CA OX CRYSTALS RARE Normal The [facility] Comment on above: Performed By: #### U MICRO, UACSIND #### [facility] Laboratory [address] [place] [address] Dr. Joyce Strauss CAST NONE SEEN Normal NONE SEEN The [facility] Comment on above: Performed By: #### U MICRO, UACSIND #### [facility] Laboratory [address] [place] [address] Dr. Joyce Strauss Crystals LM Nom (Urine sed) SEEN Abnormal NONE SEEN [facility] Comment on above: Performed By: #### U MICRO, UACSIND #### [facility] Laboratory [address] [place] [address] Dr. Joyce Strauss Epithelial cells LM Ql (Urine sed) FEW Abnormal NONE SEEN /RARE [facility] Comment on above: Performed By: #### U MICRO, UACSIND #### [facility] Laboratory [address] [place] [address] Dr. Joyce Strauss MUCOUS NONE SEEN Normal NONE SEEN The [facility] Comment on above: Performed By: #### U MICRO, UACSIND #### [facility] Laboratory [address] [place] [address] Dr. Joyce Strauss RBC NONE SEEN Abnormal 0-2 [facility] Comment on above: Performed By: #### U MICRO, UACSIND #### [facility] Laboratory [address] [place], [place] [address] Dr. Joyce Strauss WBC (U) [#/Vol] /uL Abnormal NONE SEEN The [facility] Comment on above: Performed By: #### U MICRO, UACSIND #### [facility] Laboratory [address] [address] [address] Joyce Strauss CNOVon 07-08-2022 CNOV Office Visit (NRMDN) -- ALTON BARKER ([id number]) 1940 F Date Time Provider Department 07/08/22 3:00 PM GLORIA PEREZ NRMARIBELL During your visit today, we recorded the following information about you: Weight Height 85.1 kg 1.676 m Gloria Perez APRN.PIPE MACHINE OPERATOR 07/11/2022 5:23 PM Signed [facility] - FOLLOW UP EVALUATION Honey Rabago DO, DO [address] [facility] [address] [facility] [address] Dear Honey Rabago DO, DO: I had [...] likes the staff. The director and director social service have to chip into cook since the chefs cook and this has been good from [...] lot online or on TV, $15/month on lotBoulder Wind Powery tickets (in past) Palliative Concerns: Caregiver burden: In assisted living so now less stress on son and daughter in law Spiritual concerns: No Advanced directives on file: No Palliative services: No Therapy and Exercise: Last PT Date: Current June 2022 Last OT Date: Last ST Date: Current June 2022 Exercises Regula (more content not included)... Normal [facility] CULTURE URINEon 06-03-2022 CULTURE URINE Isolate 1 [...] F Trimethoprim/Sulfamethoxaz ole <=20 S F Normal [facility] Comment on above: Performed By: #### U RCX #### [facility] Laboratory [address] [place] [address] Dr. Joyce Strauss UA RANDOMon 06-01-2022 Bilirubin Ql (U) Negative Normal NEGATIVE [facility] Comment on above: Performed By: #### U A #### [facility] Laboratory [address] [place] [address] Dr. Joyce Strauss Clarity (U) CLOUDY Abnormal CLEAR [facility] Comment on above: Performed By: #### U A #### [facility] Laboratory [address] [place] [address] Dr. Joyce Strauss Color (U) YELLOW Normal YELLOW [facility] Comment on above: Performed By: #### U A #### [facility] Laboratory [address] [place] [address] Dr. Joyce Strauss Glucose Ql (U) Negative Normal NEGATIVE [facility] Comment on above: Performed By: #### U A #### [facility] Laboratory [address] [place] [address] Dr. Joyce Strauss Hemoglobin Ql (U) MODERATE Abnormal NEGATIVE [facility] Comment on above: Performed By: #### U A #### [facility] Laboratory [address] [place] [address] Dr. Joyce Strauss Ketones Ql (U) Negative Normal NEGATIVE [facility] Comment on above: Performed By: #### U A #### [facility] Laboratory [address] [place] [address] Dr. Joyce Strauss LEUKOCYTES LARGE Abnormal NEGATIVE [facility] Comment on above: Performed By: #### U A #### [facility] Laboratory [address] [place] [address] Dr. Joyce Strauss Nitrite Ql (U) Positive Abnormal NEGATIVE [facility] Comment on above: Performed By: #### U A #### [facility] Laboratory [address] [place] [address] Dr. Joyce Strauss pH (U) 6.0 [pH] Normal 5-9 [facility] Comment on above: Performed By: #### U A #### [facility] Laboratory [address] [place] [address] Dr. Joyce Strauss SPEC GRAVITY 1.010 Normal 1.005-<=1. 025 [facility] Comment on above: Performed By: #### U A #### [facility] Laboratory [address] [address] [address] Joyce Strauss UA PROTEIN 100 mg/dl Abnormal NEGATIVE/ TRACE The [facility] Comment on above: Performed By: #### U A #### [facility] Laboratory [address] [address] [address] Joyce Strauss Urobilinogen Qn (U) 1.0 {Cam'U}/dL Normal 0.2 - 1. 0 [facility] Comment on above: Performed By: #### U A #### [facility] Laboratory [address] [address] [address] Joyce Strauss Urine culture routineOrdered By: Honey Rabago on 01-01-2022 Bacteria identified Cx Nom (U) Escherichia coli [facility] Automated erythrocytes count in urine sediment (number/area)Ordered By: Honey Rabago on 12-30-2021 RBC Auto (Urine sed) [#/Area] 3-4 [HPF] 0-4 [facility] Automated leukocytes count i n urine sediment (number/area)Ordered By: Honey Rabago on 12-30-2021 WBC Auto (Urine sed) [#/Area] 50-100 [HPF] 0-4 [facility] Automated urine color determ inationOrdered By: Honey Rabago on 12-30-2021 Color (U) Yellow Normal Yellow [facility] Comment on above: Order Comment: Name Collection Type:: Clean-Voided Midstream Performed By: #### G LULS #### Point of Care testing , Bilirubin Test strip Ql (U)O rdered By: Honey Rabago on 12-30-2021 Bilirubin Ql (U) Negative Negative [facility] Dipstick and Microscopicon 1 Appearance (U) Cloudy Critically abnormal Clear [facility] Comment on above: Order Comment: Name Collection Type:: Clean-Voided Midstream Performed By: #### G LULS #### Point of Care testing , Bacteria,Urine 1+ High None Seen [facility] Comment on above: Order Comment: Name Collection Type:: Clean-Voided Midstream Performed By: #### G LULS #### Point of Care testing , Bilirubin,Urine Negative Normal Negative [facility] Comment on above: Order Comment: Name Collection Type:: Clean-Voided Midstream Performed By: #### G LULS #### Point of Care testing , Glucose Ql (U) Normal Normal Normal [facility] Comment on above: Order Comment: Name Collection Type:: Clean-Voided Midstream Performed By: #### G LULS #### Point of Care testing , Hyaline Casts,Urine 0-8 Normal 0-8 [facility] Comment on above: Order Comment: Name Collection Type:: Clean-Voided Midstream Result Comment: PERF ORMED BY: [facility] [address] [address] PATHOLOGIST INNOVATION ANALYST FLIP GERMAN M.D. Performed By: #### G LULS #### Point of Care testing , Ketones Ql (U) Negative Normal Negative [facility] Comment on above: Order Comment: Name Collection Type:: Clean-Voided Midstream Performed By: #### G LULS #### Point of Care testing , Leukocyte esterase Test strip Ql (U) 3+ High Negative [facility] Comment on above: Order Comment: Name Collection Type:: Clean-Voided Midstream Performed By: #### G LULS #### Point of Care testing , Nitrite,Urine Positive High Negative [facility] Comment on above: Order Comment: Name Collection Type:: Clean-Voided Midstream Performed By: #### G LULS #### Point of Care testing , Occult Blood,Urine Negative Normal Negative [facility] Comment on above: Order Comment: Name Collection Type:: Clean-Voided Midstream Result Comment: PERF ORMED BY: [facility] [address] [place] [address] PATHOLOGIST INNOVATION ANALYST FLIP GERMAN M.D. Performed By: #### G LULS #### Point of Care testing , Othe Crystals,Urine None Seen Normal [facility] Comment on above: Order Comment: Name Collection Type:: Clean-Voided Midstream Performed By: #### G LULS #### Point of Care testing , Protein,Urine Trace High Negative [facility] Comment on above: Order Comment: Name Collection Type:: Clean-Voided Midstream Performed By: #### G LULS #### Point of Care testing , RBC,Urine 3-4 Normal 0-4 [facility] Comment on above: Order Comment: Name Collection Type:: Clean-Voided Midstream Performed By: #### G LULS #### Point of Care testing , Specificy [place],Urine 1.017 Normal 1.001-1.03 0 [facility] Comment on above: Order Comment: Name Collection Type:: Clean-Voided Midstream Performed By: #### G LULS #### Point of Care testing , Squamous Epithelial Cell,Urine 1-2 Normal 0-2 [facility] Comment on above: Order Comment: Name Collection Type:: Clean-Voided Midstream Performed By: #### G LULS #### Point of Care testing , Urobilinogen,Urine Normal Normal Normal [facility] Comment on above: Order Comment: Name Collection Type:: Clean-Voided Midstream Performed By: #### G LULS #### Point of Care testing , WBC,Urine 50-100 High 0-4 [facility] Comment on above: Order Comment: Name Collection Type:: Clean-Voided Midstream Performed By: #### G LULS #### Point of Care testing , Ketones Auto test strip (U) [Mass/Vol]Ordered By: Honey Rabago on 12-30-2021 Ketones (U) [Mass/Vol] Negative Negative [facility] Laboratory - UrinalysisOrder ed By: Honey Rabago on 12-30-2021 Hyaline casts LM Ql (Urine sed) 0-8 [LPF] 0-8 [facility] Nitrite Test strip Ql (U)Ord ered By: oHney Rabago on 12-30-2021 Nitrite Ql (U) Positive Negative [facility] Protein Auto test strip (U) [Mass/Vol]Ordered By: Honey Rabago on 12-30-2021 Protein (U) [Mass/Vol] Trace mg/dL Negative [facility] Specific gravity Auto test s trip (U) [Rel density]Ordered By: Honey Rabago on 12-30-2021 Specific gravity (U) [Rel density] 1.017 1.001-1.03 0 [facility] Squamous epithelial cells de tection in urine sediment by light microscopyOrdered By: Honey Rabago on 12-30-2021 Epithelial cells.squamous LM Ql (Urine sed) 1-2 [HPF] 0-2 [facility] Urine Cultureon 12-30-2021 Bacteria identified Cx Nom (U) ORGANISM: Escherichia coli (O:ESCCOL) [place] Count >100,000 Aerobic JIMMY Charge (NUC86) SUSCEPTIBILITY [...] RESISTANT TO ALL B-LACTAM DRUGS. PERFORMED BY: [address] [place] [address] PATHOLOGIST INNOVATION ANALYST FLIP GERMAN M.D. Normal [facility] Comment on above: Performed By: #### G LULS #### Point of Care testing , Urine bacteria detection by automated methodOrdered By: Honey Rabago on 12-30-2021 Bacteria Auto Ql (U) 1+ None Seen [facility] Urine clarity by refractomet ry automatedOrdered By: Honey Rabago on 12-30-2021 Clarity Refractometry automated (U) Cloudy Clear [facility] Urine glucose measurement by automated test strip (mass/volume)Ordered By: Honey Rabago on 12-30-2021 Glucose Auto test strip (U) [Mass/Vol] Normal mg/dL Normal [facility] Urine hemoglobin detection b y automated test stripOrdered By: Honey Rabago on 12-30-2021 Hemoglobin Auto test strip Ql (U) Negative Negative [facility] Urine leukocyte esterase det ection by automated test stripOrdered By: Honey Rabago on 12-30-2021 Leukocyte esterase Auto test strip Ql (U) 3+ Negative [facility] Urine pH measurement by auto mated test stripOrdered By: Honey Rabago on 12-30-2021 pH (U) 8.5 [pH] Normal 5.0-9.0 [facility] Comment on above: Order Comment: Name Collection Type:: Clean-Voided Midstream Performed By: #### G LULS #### Point of Care testing , Urine sediment crystal ident ification by light microscopyOrdered By: Honey Rabago on 12-30-2021 Crystals LM Nom (Urine sed) None seen [HPF] [facility] Urobilinogen Auto test strip (U) [Mass/Vol]Ordered By: Honey Rabago on 12-30-2021 Urobilinogen (U) [Mass/Vol] Normal mg/dL Normal [facility] PROTIMEon 12-21-2021 INR Coag (PPP) [Relative time] 2.34 {INR} Normal [facility] Comment on above: Performed By: #### P T #### [facility] [address] [address] [address] Joyce Strauss INR GUIDELINES SEE BELOW Normal [facility] Comment on above: Result Comment: GUDELIA RED INR: 2.0 - 3.0 CONDITIONS NOT LISTED BELOW 2.5 - 3.5 FOR PROSTHETIC HEART VALVE REPLACEMENT 2.5 - 3.5 RECURRENT THROMBOSIS Performed By: #### P T #### [facility] [address] [place] [address] Dr. Joyce Strauss PT Coag (PPP) [Time] 23.9 s Critically high 9.0-11.6 [facility] Comment on above: Performed By: #### P T #### [facility] [address] [place] [address] Dr. Joyce Strauss PROTIMEon 12-14-2021 INR GUIDELINES SEE BELOW Normal [facility] Comment on above: Result Comment: GUDELIA RED INR: 2.0 - 3.0 CONDITIONS NOT LISTED BELOW 2.5 - 3.5 FOR PROSTHETIC HEART VALVE REPLACEMENT 2.5 - 3.5 RECURRENT THROMBOSIS Performed By: #### P T #### [facility] [address] [place] [address] Dr. Joyce Strauss PT Coag (PPP) [Time] 20.6 s Critically high 9.0-11.6 [facility] Comment on above: Performed By: #### P T #### [facility] [address] [place] [address] Dr. Joyce Strauss Prothrombin Time INRon 12-14 Prothrombin Time INR [facility] [employer] Other INR Coag (PPP) [Relative time] 2.00 {INR} Normal [facility] [facility] Other Comment on above: Performed By: #### P T #### [facility] [address] [place] [address] Dr. Joyce Strauss PROTIMEon 11-30-2021 INR GUIDELINES SEE BELOW Normal [facility] Comment on above: Result Comment: GUDELIA RED INR: 2.0 - 3.0 CONDITIONS NOT LISTED BELOW 2.5 - 3.5 FOR PROSTHETIC HEART VALVE REPLACEMENT 2.5 - 3.5 RECURRENT THROMBOSIS Performed By: #### P T #### [facility] [address] [place] [address] Dr. Joyce Strauss PT Coag (PPP) [Time] 25.9 s Critically high 9.0-11.6 [facility] Comment on above: Performed By: #### P T #### [facility] [address] [place] [address] Dr. Joyce Strauss Prothrombin Time INRon 11-30 Prothrombin Time INR [facility] [employer] Other INR Coag (PPP) [Relative time] 2.55 {INR} Normal [facility] [employer] Other Comment on above: Performed By: #### P T #### [facility] [address] [address] [address] Joyce Strauss Glucose Glucometer (dC) [M ass/Vol]Ordered By: Alcides Moya on 11-25-2021 Glucose [Mass/Vol] 125 mg/dL [facility] Comment on above: Random Glucose Refer ence Range is dependent on time and content of last meal. Glucose of more than 200 mg/dL in a nonstressed, ambulatory subject supports the diagnosis of Diabetes Mellitus. Glucose Poct Glucometerson 0 11-25-2021 Glucose [Mass/Vol] 125 mg/dL Normal [facility] Comment on above: Result Comment: [place] Glucose Reference Range is dependent on time and content of last meal. Glucose of more than 200 mg/dL in a nonstressed, ambulatory subject supports the diagnosis of Diabetes Mellitus. PERFORMED BY: [facility] [address] [place] [address] PATHOLOGIST INNOVATION ANALYST FLIP GERMAN M.D. Performed By: #### G LULS #### Point of Care testing , Laboratory - CoagulationOrde red By: Alcides Moya on 11-25-2021 PT Coag (PPP) [Time] 25.5 s 9.0-12.9 [facility] Platelet poor plasma interna tional normalized ratio (INR) by coagulation assay (relatOrdered By: Alcides Moya on 11-25-2021 INR Coag (PPP) [Relative time] 2.2 {INR} [facility] Comment on above: INR Therapeutic Rang [...] Coag (PPP) [Relative time] 2.2 {INR} Normal [facility] Comment on above: Order Comment: List [...] heart valves: 3 - 4.5 PERFORMED BY: [address] [place] [address] PATHOLOGIST INNOVATION ANALYST FLIP GERMAN M.D. Performed By: #### G LULS #### Point of Care testing , PT Coag (PPP) [Time] 25.5 s High 9.0-12.9 [facility] Comment on above: Order Comment: List the anticoagulant: COUMADIN/WARFARIN Performed By: #### G LULS #### Point of Care testing , Basic Metabolic Panelon 11-12 Anion gap [Moles/Vol] 11.8 mmol/L Normal 6.0-15.0 [facility] Comment on above: Performed By: #### G LULS #### Point of Care testing , Calcium [Mass/Vol] 8.7 mg/dL Normal 8.2-10.2 [facility] Comment on above: Performed By: #### G LULS #### Point of Care testing , Chloride [Moles/Vol] 103 mmol/L Normal 95-114 [facility] Comment on above: Performed By: #### G LULS #### Point of Care testing , CO2 [Moles/Vol] 28.1 mmol/L Normal 22.0-30.0 [facility] Comment on above: Performed By: #### G LULS #### Point of Care testing , Creatinine [Mass/Vol] 0.53 mg/dL Normal 0.44-1.03 [facility] Comment on above: Performed By: #### G LULS #### Point of Care testing , Creatinine Clr Calc Pharmacy 64.37 [facility] Comment on above: Result Comment: PERF ORMED BY: [facility] [address] [place] [address] PATHOLOGIST INNOVATION ANALYST FLIP GERMAN M.D. Performed By: #### G LULS #### Point of Care testing , Estimated GFR ( Trista > 60 [facility] Comment on above: Result Comment: GFR estimated reference range: According to KDOQI guidelines, <60 ml/min/1.73m2 is sufficient to diagnose a patient with chronic kidney disease. Performed By: #### G LULS #### Point of Care testing , Estimated GFR (Non- Am > 60 [facility] Comment on above: Performed By: #### G LULS #### Point of Care testing , Glucose [Mass/Vol] 138 mg/dL High 70-100 [facility] Comment on above: Result Comment: [place] om Glucose Reference Range is dependent on time and content of last meal. Glucose of more than 200 mg/dL in a nonstressed, ambulatory subject supports the diagnosis of Diabetes Mellitus. ADA recommended reference range Performed By: #### G LULS #### Point of Care testing , Potassium [Moles/Vol] 3.9 mmol/L Normal 3.5-5.1 [facility] Comment on above: Performed By: #### G LULS #### Point of Care testing , Sodium [Moles/Vol] 139 mmol/L Normal 136-146 [facility] Comment on above: Performed By: #### G LULS #### Point of Care testing , Urea nitrogen [Mass/Vol] 6 mg/dL Low 9-23 [facility] Comment on above: Performed By: #### G LULS #### Point of Care testing , Basophils Auto (Bld) [#/Vol] Ordered By: Elham Mendoza on 11-24-2021 Basophils (Bld) [#/Vol] N/A [facility] Basophils/100 WBC Auto (Bld) Ordered By: Elham Mendoza on 11-24-2021 Basophils/100 WBC (Bld) N/A [facility] Blood anisocytosis detection Ordered By: Elham Mendoza on 11-24-2021 Anisocytosis Ql (Bld) Moderate [facility] Blood hemoglobin measurement (mass/volume)Ordered By: Elham Mendoza on 11-24-2021 Hemoglobin (Bld) [Mass/Vol] 11.4 g/dL 11.8-15.4 [facility] Blood leukocytes automated c ount (number/volume)Ordered By: Elham Mendoza on 11-24-2021 WBC (Bld) [#/Vol] 6.0 10*3/uL 4.5-11.0 [facility] Creatinine and Glomerular fi ltration rate.predicted panel (S/P/Bld)Ordered By: Elham Mendoza on 11-24-2021 Creatinine [Mass/Vol] 0.53 mg/dL 0.44-1.03 [facility] Diff and CBCon 11-24-2021 Anisocytosis Ql (Bld) Moderate Normal [facility] Comment on above: Performed By: #### G LULS #### Point of Care testing , Eosinophils/100 WBC (Bld) 2 % Normal 1-3 [facility] Comment on above: Performed By: #### G GELACIOLS #### Point of Care testing , Erythrocyte distribution width (RBC) [Ratio] 18.4 % High 11.9-15.3 [facility] Comment on above: Performed By: #### G LULS #### Point of Care testing , Hematocrit (Bld) [Volume fraction] 34.9 % Normal 34.0-46.4 [facility] Comment on above: Performed By: #### G LULS #### Point of Care testing , Hemoglobin (Bld) [Mass/Vol] 11.4 g/dL Low 11.8-15.4 [facility] Comment on above: Performed By: #### G GELACIOLS #### Point of Care testing , Lymphocytes/100 WBC (Bld) 35 % Normal 18-42 [facility] Comment on above: Performed By: #### G LULS #### Point of Care testing , MCH (RBC) [Entitic mass] 29.9 pg Normal 24.7-34.3 [facility] Comment on above: Performed By: #### G LULS #### Point of Care testing , MCV (RBC) [Entitic vol] 91.2 fL Normal 80-100 [facility] Comment on above: Performed By: #### G LULS #### Point of Care testing , Mean Corpuscular HGB Conc 32.8 g/dL Normal 32.0-35.0 [facility] Comment on above: Performed By: #### G GELACIOLS #### Point of Care testing , Monocytes/100 WBC (Bld) 7 % Normal 2-11 [facility] Comment on above: Performed By: #### G GELACIOLS #### Point of Care testing , Myelocytes 1 % High 0-0 [facility] Comment on above: Performed By: #### G LULS #### Point of Care testing , Nucleated RBC/100 WBC (Bld) [Ratio] 0.5 % Normal 0-0.5 [facility] Comment on above: Result Comment: PERF ORMED BY: [facility] [address] [place] [address] PATHOLOGIST [employer]ATION ANALYST FLIP GERMAN M.D. Performed By: #### G LULS #### Point of Care testing , Platelet Estimate Normal Normal Normal [facility] Comment on above: Performed By: #### G LULS #### Point of Care testing , Platelet mean volume (Bld) [Entitic vol] 8.8 fL Normal 6.3-10.7 [facility] Comment on above: Performed By: #### G LULS #### Point of Care testing , Platelet Morphology Normal Normal Normal [facility] Comment on above: Result Comment: PERF ORMED BY: [facility] [place] [address] PATHOLOGIST INNOVATION ANALYST FLIP GERMAN M.D. Performed By: #### G LULS #### Point of Care testing , Platelets (Bld) [#/Vol] 285 10*3/uL Normal 150-450 [facility] Comment on above: Performed By: #### G LULS #### Point of Care testing , RBC (Bld) [#/Vol] 3.82 10*6/uL Normal 3.60-5.00 [facility] Comment on above: Performed By: #### G GELACIOLS #### Point of Care testing , Reactive Lymphocytes 1 % Normal 0-12 [facility] Comment on above: Performed By: #### G LULS #### Point of Care testing , Segmented neutrophils/100 WBC (Bld) 54 % Normal 50-70 [facility] Comment on above: Performed By: #### G LULS #### Point of Care testing , WBC (Bld) [#/Vol] 6.0 10*3/uL Normal 4.5-11.0 [facility] Comment on above: Performed By: #### G LULS #### Point of Care testing , Eosinophils Auto (Bld) [#/Vo l]Ordered By: Elham Mendoza on 11-24-2021 Eosinophils (Bld) [#/Vol] N/A [facility] Eosinophils/100 WBC Auto (Bl d)Ordered By: Elham Mendoza on 11-24-2021 Eosinophils/100 WBC (Bld) N/A [facility] Erythrocyte distribution wid th Auto (RBC) [Ratio]Ordered By: Elham Mendoza on 11-24-2021 Erythrocyte distribution width (RBC) [Ratio] 18.4 % 11.9-15.3 [facility] Estimated glomerular filtrat ion rate (GFR) non- AmericanOrdered By: Elham Mendoza on 11-24-2021 GFR/1.73 sq M.predicted among non-blacks MDRD (S/P/Bld) [Vol rate/Area] > 60 mL/Min [facility] Glucose Poct Glucometerson 0 11-24-2021 Glucose [Mass/Vol] 139 mg/dL Normal [facility] Comment on above: Result Comment: [facility] Glucose Reference Range is dependent on time and content of last meal. Glucose of more than 200 mg/dL in a nonstressed, ambulatory subject supports the diagnosis of Diabetes Mellitus. PERFORMED BY: [facility] [place] [address] PATHOLOGIST INNOVATION ANALYST FLIP GERMAN M.D. Performed By: #### G LULS #### Point of Care testing , Hematocrit Auto (Bld) [Volum e fraction]Ordered By: Elham Mendoza on 11-24-2021 Hematocrit (Bld) [Volume fraction] 34.9 % 34.0-46.4 [facility] Laboratory - Hematology and Cell countsOrdered By: Elham Mendoza on 11-24-2021 Nucleated RBC/100 WBC (Bld) [Ratio] 0.5 % 0-0.5 [facility] Lymphocytes Auto (Bld) [#/Vo l]Ordered By: Elham Mendoza on 11-24-2021 Lymphocytes (Bld) [#/Vol] N/A [facility] Lymphocytes/100 WBC Auto (Bl d)Ordered By: Elham Mendoza on 11-24-2021 Lymphocytes/100 WBC (Bld) N/A [facility] Lymphocytes/100 WBC (Bld) 35 % 18-42 [facility] Lymphocytes/100 WBC Manual c nt (Bld)Ordered By: Elham Mendoza on 11-24-2021 Lymphocytes/100 WBC (Bld) 1 % 0-12 [facility] MCH Auto (RBC) [Entitic mass ]Ordered By: Elham Mendoza on 11-24-2021 MCH (RBC) [Entitic mass] 29.9 pg 24.7-34.3 [facility] MCHC Auto (RBC) [Mass/Vol]Or dered By: Elham Mendoza on 11-24-2021 MCHC (RBC) [Mass/Vol] 32.8 g/dL 32.0-35.0 [facility] MCV Auto (RBC) [Entitic vol] Ordered By: Elham Mendoza on 11-24-2021 MCV (RBC) [Entitic vol] 91.2 fL 80-100 [facility] Monocyte %Ordered By: Elham Mendoza on 11-24-2021 Monocytes/100 WBC (Bld) 2 % 1-3 [facility] Monocytes Auto (Bld) [#/Vol] Ordered By: Elham Mendoza on 11-24-2021 Monocytes (Bld) [#/Vol] N/A [facility] Monocytes/100 WBC Auto (Bld) Ordered By: Elham Mendzoa on 11-24-2021 Monocytes/100 WBC (Bld) N/A [facility] Monocytes/100 WBC Manual cnt (Bld)Ordered By: Elham Mendoza on 11-24-2021 Monocytes/100 WBC (Bld) 7 % 2-11 [facility] Myelocytes/100 WBC Manual cn t (Bld)Ordered By: Elham Mendoza on 11-24-2021 Myelocytes/100 WBC (Bld) 1 % 0-0 [facility] Neutrophils Auto (Bld) [#/Vo l]Ordered By: Elham Mendoza on 11-24-2021 Neutrophils (Bld) [#/Vol] N/A [facility] Neutrophils/100 WBC Auto (Bl d)Ordered By: Elham Mendoza on 11-24-2021 Neutrophils/100 WBC (Bld) N/A [facility] No Panel InformationOrdered By: Elham Mendoza on 11-24-2021 Estimated GFR () > 60 mL/Min [facility] Comment on above: GFR estimated refere nce range: According to KDOQI guidelines, <60 ml/min/1.73m2 is sufficient to diagnose a patient with chronic kidney disease. Pharmacy Creatinine Clearance (Chem 64.37 [facility] Platelet Estimate Normal Normal [facility] Platelet Morphology Comment Normal Normal [facility] Platelet mean volume Auto (B ld) [Entitic vol]Ordered By: Elham Mendoza on 11-24-2021 Platelet mean volume (Bld) [Entitic vol] 8.8 fL 6.3-10.7 [facility] Platelets Auto (Bld) [#/Vol] Ordered By: Elham Mendoza on 11-24-2021 Platelets (Bld) [#/Vol] 285 10*3/uL 150-450 [facility] Prothrombin Time INRon 11-24 INR Coag (PPP) [Relative time] 2.6 {INR} Normal [facility] Comment on above: Order Comment: FIRST [...] heart valves: 3 - 4.5 PERFORMED BY: [facility] [address] [id number] PATHOLOGIST INNOVATION ANALYST FLIP GERMAN M.D. Performed By: #### P T ####[id number] [id number] [facility] PT Coag (PPP) [Time] 29.3 s High 9.0-12.9 [facility] Comment on above: Order Comment: FIRST SPECIMEN HEMOLYZED Performed By: #### P T ####[id number] [id number] [facility] RBC Auto (Bld) [#/Vol]Ordere d By: Elham Mendoza on 11-24-2021 RBC (Bld) [#/Vol] 3.82 10*6/uL 3.60-5.00 [facility] RBC morphologyOrdered By: Pramod Mendoza on 11-24-2021 RBC morphology finding Nom (Bld) N/A [facility] Segmented neutrophils/100 WB C Manual cnt (Bld)Ordered By: Elham Mendoza on 11-24-2021 Segmented neutrophils/100 WBC (Bld) 54 % 50-70 [facility] Serum or plasma anion gap de terminationOrdered By: Elham Mendoza on 11-24-2021 Anion gap [Moles/Vol] 11.8 mmol/L 6.0-15.0 [facility] Serum or plasma calcium alondra urement (mass/volume)Ordered By: Elham Mendoza on 11-24-2021 Calcium [Mass/Vol] 8.7 mg/dL 8.2-10.2 [facility] Serum or plasma chloride link surement (moles/volume)Ordered By: Elham Mendoza on 11-24-2021 Chloride [Moles/Vol] 103 mmol/L 95-114 [facility] Serum or plasma glucose alondra urement (mass/volume)Ordered By: Elham Mendoza on 11-24-2021 Glucose [Mass/Vol] 138 mg/dL 70-100 [facility] Comment on above: ADA recommended refe [...] on 11-24-2021 Potassium [Moles/Vol] 3.9 mmol/L 3.5-5.1 [facility] Serum or plasma sodium measu rement (moles/volume)Ordered By: Elham Mendoza on 11-24-2021 Sodium [Moles/Vol] 139 mmol/L 136-146 [facility] Serum or plasma total carbon dioxide measurement (moles/volume)Ordered By: Elham Mendoza on 11-24-2021 CO2 [Moles/Vol] 28.1 mmol/L 22.0-30.0 [facility] Serum or plasma urea nitroge n measurement (mass/volume)Ordered By: Elham Mendoza on 11-24-2021 Urea nitrogen [Mass/Vol] 6 mg/dL 9-23 [facility] Glucose Poct Glucometerson 0 11-23-2021 Glucose [Mass/Vol] 157 mg/dL Normal [facility] Comment on above: Result Comment: [place] om Glucose Reference Range is dependent on time and content of last meal. Glucose of more than 200 mg/dL in a nonstressed, ambulatory subject supports the diagnosis of Diabetes Mellitus. PERFORMED BY: [address] [place] [address] PATHOLOGIST INNOVATION ANALYST FLIP GERMAN M.D. Performed By: #### G LULS #### Point of Care testing , Prothrombin Time INRon 11-23 INR Coag (PPP) [Relative time] 2.9 {INR} Normal [facility] Comment on above: Order Comment: List [...] heart valves: 3 - 4.5 PERFORMED BY: [address] [place] [address] PATHOLOGIST INN[employer]ATION ANALYST FLIP GERMAN M.D. Performed By: #### G LULS #### Point of Care testing , PT Coag (PPP) [Time] 33.5 s High 9.0-12.9 [facility] Comment on above: Order Comment: List the anticoagulant: COUMADIN/WARFARIN Performed By: #### G LULS #### Point of Care testing , Glucose Poct Glucometerson 0 11-22-2021 Glucose [Mass/Vol] 161 mg/dL Normal [facility] Comment on above: Result Comment: [facility] Glucose Reference Range is dependent on time and content of last meal. Glucose of more than 200 mg/dL in a nonstressed, ambulatory subject supports the diagnosis of Diabetes Mellitus. PERFORMED BY: [address] [place] [address] PATHOLOGIST INNOVATION ANALYST FLIP GERMAN M.D. Performed By: #### G LULS #### Point of Care testing , Glucose [Mass/Vol] 112 mg/dL Normal [facility] [facility] Comment on above: Result Comment: [facility] Glucose Reference Range is dependent on time and content of last meal. Glucose of more than 200 mg/dL in a nonstressed, ambulatory subject supports the diagnosis of Diabetes Mellitus. PERFORMED BY: [address] [place] [id number] PATHOLOGIST INNOVATION ANALYST FLIP GERMAN M.D. Performed By: #### G LULS #### Point of Care testing , Prothrombin Time INRon 11-22 INR Coag (PPP) [Relative time] 2.1 {INR} Normal [facility] Comment on above: Order Comment: List [...] heart valves: 3 - 4.5 PERFORMED BY: [address] JUANITAJoann [place] [id number] PATHOLOGIST INNOVATION ANALYST FLIP GERMAN M.D. Performed By: #### G LULS #### Point of Care testing , PT Coag (PPP) [Time] 24.4 s High 9.0-12.9 [facility] Comment on above: Order Comment: List the anticoagulant: COUMADIN/WARFARIN Performed By: #### G LULS #### Point of Care testing , Glucose Poct Glucometerson 0 11-21-2021 Commemt1 Glu2: Cleaned Meter Normal [facility] Comment on above: Result Comment: PERF ORMED BY: [address] [place] [id number] PATHOLOGIST INNOVATION ANALYST FLIP GERMAN M.D. Performed By: #### G LULS #### Point of Care testing , Glucose [Mass/Vol] 130 mg/dL Normal [facility] Comment on above: Result Comment: [facility] Glucose Reference Range is dependent on time and content of last meal. Glucose of more than 200 mg/dL in a nonstressed, ambulatory subject supports the diagnosis of Diabetes Mellitus. Performed By: #### G LULS #### Point of Care testing , No Panel InformationOrdered By: Alcides Moya on 11-21-2021 Bedside Glucose Comment Glu2: cleaned meter [facility] Prothrombin Time INRon 11-21 INR Coag (PPP) [Relative time] 1.9 {INR} Normal [facility] Comment on above: Order Comment: List [...] heart valves: 3 - 4.5 PERFORMED BY: [address] [place] [place] [address] PATHOLOGIST INNOVATION ANALYST FLIP GERMAN M.D. Performed By: #### G LULS #### Point of Care testing , PT Coag (PPP) [Time] 21.8 s High 9.0-12.9 [facility] Comment on above: Order Comment: List the anticoagulant: COUMADIN/WARFARIN Performed By: #### G LULS #### Point of Care testing , Glucose Poct Glucometerson 0 11-20-2021 Commemt1 Glu2: Cleaned Meter [facility] Comment on above: Result Comment: PERF ORMED BY: [facility] [address] [place] [address] PATHOLOGIST INNOVATION ANALYST FLIP GERMAN M.D. Performed By: #### G LULS #### Point of Care testing , Glucose [Mass/Vol] 112 mg/dL [facility] Comment on above: Result Comment: [place] Glucose Reference Range is dependent on time and content of last meal. Glucose of more than 200 mg/dL in a nonstressed, ambulatory subject supports the diagnosis of Diabetes Mellitus. Performed By: #### G LULS #### Point of Care testing , Glucose [Mass/Vol] 129 mg/dL Normal [facility] Comment on above: Result Comment: [place] Glucose Reference Range is dependent on time and content of last meal. Glucose of more than 200 mg/dL in a nonstressed, ambulatory subject supports the diagnosis of Diabetes Mellitus. PERFORMED BY: [address] [place] [address] PATHOLOGIST INNOVATION ANALYST FLIP GERMAN M.D. Performed By: #### G LULS #### Point of Care testing , Prothrombin Time INRon 11-20 INR Coag (PPP) [Relative time] 2.3 {INR} Normal [facility] Comment on above: Order Comment: List [...] heart valves: 3 - 4.5 PERFORMED BY: [address] [place] [address] PATHOLOGIST INNOVATION ANALYST FLIP GERMAN M.D. Performed By: #### G LULS #### Point of Care testing , PT Coag (PPP) [Time] 26.6 s High 9.0-12.9 [facility] Comment on above: Order Comment: List the anticoagulant: COUMADIN/WARFARIN Performed By: #### G LULS #### Point of Care testing , CT biopsyOrdered By: Amanda viveros on 11-19-2021 Transferrin [Mass/Vol] 173 mg/dL 180-380 [facility] Glucose Poct Glucometerson 0 11-19-2021 Glucose [Mass/Vol] 122 mg/dL Normal [facility] Comment on above: Result Comment: [place] Glucose Reference Range is dependent on time and content of last meal. Glucose of more than 200 mg/dL in a nonstressed, ambulatory subject supports the diagnosis of Diabetes Mellitus. PERFORMED BY: [address] [place] [id number] PATHOLOGIST INNOVATION ANALYST FLIP GERMAN M.D. Performed By: #### G LULS #### Point of Care testing , Iron [Mass/volume] in Serum or PlasmaOrdered By: Amanda Jaimes on 11-19-2021 Iron [Mass/Vol] 56 ug/dL 40-150 [facility] Iron and TIBC Profileon % Iron Saturation 23.0 % Normal 20-50 [facility] Comment on above: Performed By: #### F E and TIBC ####[place] [address] [place] [address] [facility] Iron [Mass/Vol] 56 ug/dL Normal 40-150 [facility] Comment on above: Performed By: #### F E and TIBC ####[place] [address] [place] [address] [facility] Total Iron Binding Capacity 242 ug/dL Low 255-450 [facility] Comment on above: Performed By: #### F E and TIBC ####[address] [address] [facility] Transferrin [Mass/Vol] 173 mg/dL Low 180-380 [facility] Comment on above: Result Comment: PERF ORMED BY: [facility] [address] [place] [id number] PATHOLOGIST INNOVATION ANALYST FLIP GERMAN M.D. Performed By: #### F E and TIBC ####[place] [id number] [facility] Iron binding capacity [Mass/ volume] in Serum or PlasmaOrdered By: Amanda Jaimes on 11-19-2021 Iron binding capacity [Mass/Vol] 242 ug/dL 255-450 [facility] Iron saturation [Mass Fracti on] in Serum or PlasmaOrdered By: Amanda Jaimes on 11-19-2021 Iron saturation [Mass fraction] 23.0 % 20-50 [facility] Prothrombin Time INRon 11-19 INR Coag (PPP) [Relative time] 2.5 {INR} Normal [facility] Comment on above: Order Comment: List [...] heart valves: 3 - 4.5 PERFORMED BY: [facility] [address] [place] [id number] PATHOLOGIST INNOVATION ANALYST FLIP GERMAN M.D. Performed By: #### P T ####[place] [address] [place] [id number] [facility] PT Coag (PPP) [Time] 28.4 s High 9.0-12.9 [facility] Comment on above: Order Comment: List the anticoagulant: COUMADIN/WARFARIN Performed By: #### P T ####[place] [address] [place] [id number] [facility] Basic Metabolic Panelon 09-0 -2021 Anion gap [Moles/Vol] 12.3 mmol/L Normal 6.0-15.0 [facility] Comment on above: Performed By: #### G LULS #### Point of Care testing , Calcium [Mass/Vol] 8.8 mg/dL Normal 8.2-10.2 [facility] Comment on above: Performed By: #### G LULS #### Point of Care testing , Chloride [Moles/Vol] 101 mmol/L Normal 95-114 [facility] Comment on above: Performed By: #### G LULS #### Point of Care testing , CO2 [Moles/Vol] 30.7 mmol/L High 22.0-30.0 [facility] Comment on above: Performed By: #### G LULS #### Point of Care testing , Creatinine [Mass/Vol] 0.53 mg/dL Normal 0.44-1.03 [facility] Comment on above: Performed By: #### G LULS #### Point of Care testing , Creatinine Clr Calc Pharmacy 64.26 [facility] Comment on above: Result Comment: PERF ORMED BY: [facility] [address] [place] [address] PATHOLOGIST INNOVATION ANALYST FLIP GERMAN M.D. Performed By: #### G LULS #### Point of Care testing , Estimated GFR ( Trista > 60 Normal [facility] Comment on above: Result Comment: GFR estimated reference range: According to KDOQI guidelines, <60 ml/min/1.73m2 is sufficient to diagnose a patient with chronic kidney disease. Performed By: #### G LULS #### Point of Care testing , Estimated GFR (Non- Am > 60 Normal [facility] Comment on above: Performed By: #### G LULS #### Point of Care testing , Glucose [Mass/Vol] 131 mg/dL High 70-100 [facility] Comment on above: Result Comment: [place] om Glucose Reference Range is dependent on time and content of last meal. Glucose of more than 200 mg/dL in a nonstressed, ambulatory subject supports the diagnosis of Diabetes Mellitus. ADA recommended reference range Performed By: #### G LULS #### Point of Care testing , Potassium [Moles/Vol] 4.0 mmol/L Normal 3.5-5.1 [facility] Comment on above: Performed By: #### G LULS #### Point of Care testing , Sodium [Moles/Vol] 140 mmol/L Normal 136-146 [facility] Comment on above: Performed By: #### G LULS #### Point of Care testing , Urea nitrogen [Mass/Vol] 8 mg/dL Low 9-23 [facility] Comment on above: Performed By: #### G LULS #### Point of Care testing , Complete Blood Count Auto Di ffon 11-18-2021 Basophils (Bld) [#/Vol] 0.0 10*3/uL Normal 0.0-0.2 [facility] Comment on above: Result Comment: PERF ORMED BY: [facility] [address] [place] [address] PATHOLOGIST INNOVATION ANALYST FLIP GERMAN M.D. Performed By: #### G LULS #### Point of Care testing , Basophils/100 WBC (Bld) 0.5 % Normal . [facility] Comment on above: Performed By: #### Charles SOSA #### Point of Care testing , Eosinophils (Bld) [#/Vol] 0.2 10*3/uL Normal 0.0-0.45 [facility] Comment on above: Performed By: #### Charles SOSA #### Point of Care testing , Eosinophils/100 WBC (Bld) 4.0 % Normal . [facility] Comment on above: Performed By: #### Charles BRIZUELALS #### Point of Care testing , Erythrocyte distribution width (RBC) [Ratio] 17.8 % High 11.9-15.3 [facility] Comment on above: Performed By: #### Charles SOSA #### Point of Care testing , Hematocrit (Bld) [Volume fraction] 33.3 % Low 34.0-46.4 [facility] Comment on above: Performed By: #### Charles SOSA #### Point of Care testing , Hemoglobin (Bld) [Mass/Vol] 10.9 g/dL Low 11.8-15.4 [facility] Comment on above: Performed By: #### Charles SOSA #### Point of Care testing , Lymphocytes (Bld) [#/Vol] 2.2 10*3/uL Normal 1.00-4.8 [facility] Comment on above: Performed By: #### Charles SOSA #### Point of Care testing , Lymphocytes/100 WBC (Bld) 40.3 % Normal . [facility] Comment on above: Performed By: #### Charles SOSA #### Point of Care testing , MCH (RBC) [Entitic mass] 29.8 pg Normal 24.7-34.3 [facility] Comment on above: Performed By: #### Charles SOSA #### Point of Care testing , MCV (RBC) [Entitic vol] 91.3 fL Normal 80-100 [facility] Comment on above: Performed By: #### Charles SOSA #### Point of Care testing , Mean Corpuscular HGB Conc 32.6 g/dL Normal 32.0-35.0 [facility] Comment on above: Performed By: #### G IAN #### Point of Care testing , Monocytes (Bld) [#/Vol] 0.7 10*3/uL Normal 0.0-0.8 [facility] Comment on above: Performed By: #### G GELACIOLS #### Point of Care testing , Monocytes/100 WBC (Bld) 12.3 % Normal . [facility] Comment on above: Performed By: #### G GELACIOLS #### Point of Care testing , Neutrophils (Bld) [#/Vol] 2.3 10*3/uL Normal 1.8-7.7 [facility] Comment on above: Performed By: #### G IAN #### Point of Care testing , Neutrophils/100 WBC (Bld) 42.9 % Normal . [facility] Comment on above: Performed By: #### Charles BRIZUELALS #### Point of Care testing , Nucleated RBC/100 WBC (Bld) [Ratio] 0.1 % Normal 0-0.5 [facility] Comment on above: Performed By: #### Charles SOSA #### Point of Care testing , Platelet mean volume (Bld) [Entitic vol] 8.5 fL Normal 6.3-10.7 [facility] Comment on above: Performed By: #### G IAN #### Point of Care testing , Platelets (Bld) [#/Vol] 224 10*3/uL Normal 150-450 [facility] Comment on above: Performed By: #### G IAN #### Point of Care testing , RBC (Bld) [#/Vol] 3.65 10*6/uL Normal 3.60-5.00 [facility] Comment on above: Performed By: #### G IAN #### Point of Care testing , WBC (Bld) [#/Vol] 5.5 10*3/uL Normal 4.5-11.0 [facility] Comment on above: Performed By: #### G IAN #### Point of Care testing , Glucose Poct Glucometerson 0 11-18-2021 Glucose [Mass/Vol] 134 mg/dL Normal [facility] Comment on above: Result Comment: [facility] Glucose Reference Range is dependent on time and content of last meal. Glucose of more than 200 mg/dL in a nonstressed, ambulatory subject supports the diagnosis of Diabetes Mellitus. PERFORMED BY: [facility] [address] [place] [address] PATHOLOGIST INNOVATION ANALYST FLIP GERMAN M.D. Performed By: #### G LULS #### Point of Care testing , Prothrombin Time INRon 11-18 INR Coag (PPP) [Relative time] 2.5 {INR} Normal [facility] Comment on above: Order Comment: List [...] heart valves: 3 - 4.5 PERFORMED BY: [address] [place] [address] PATHOLOGIST INNOVATION ANALYST FLIP GERMAN M.D. Performed By: #### G LULS #### Point of Care testing , PT Coag (PPP) [Time] 28.3 s High 9.0-12.9 [facility] Comment on above: Order Comment: List the anticoagulant: COUMADIN/WARFARIN Performed By: #### G LULS #### Point of Care testing , Glucose Poct Glucometerson 0 11-17-2021 Glucose [Mass/Vol] 124 mg/dL Normal [facility] Comment on above: Result Comment: [facility] Glucose Reference Range is dependent on time and content of last meal. Glucose of more than 200 mg/dL in a nonstressed, ambulatory subject supports the diagnosis of Diabetes Mellitus. PERFORMED BY: [facility] [address] [place] [address] PATHOLOGIST INNOVATION ANALYST FLIP GERMAN M.D. Performed By: #### G LULS #### Point of Care testing , Prothrombin Time INRon 11-17 INR Coag (PPP) [Relative time] 2.7 {INR} Normal [facility] Comment on above: Order Comment: List [...] heart valves: 3 - 4.5 PERFORMED BY: [facility] [address] [place] [address] PATHOLOGIST INNOVATION ANALYST FLIP GERMAN M.D. Performed By: #### P T ####[place] [id number] [facility] PT Coag (PPP) [Time] 30.8 s High 9.0-12.9 [facility] Comment on above: Order Comment: List the anticoagulant: COUMADIN/WARFARIN Performed By: #### P T ####[place] [id number] [facility] Glucose Poct Glucometerson 0 11-16-2021 Commemt1 Glu2: Cleaned Meter [facility] Comment on above: Result Comment: PERF ORMED BY: [facility] [address] [place] [id number] PATHOLOGIST INNOVATION ANALYST FLIP GERMAN M.D. Performed By: #### G LULS #### Point of Care testing , Glucose [Mass/Vol] 125 mg/dL Normal [facility] Comment on above: Result Comment: [facility] Glucose Reference Range is dependent on time and content of last meal. Glucose of more than 200 mg/dL in a nonstressed, ambulatory subject supports the diagnosis of Diabetes Mellitus. Performed By: #### G LULS #### Point of Care testing , Prothrombin Time INRon 11-16 INR Coag (PPP) [Relative time] 2.9 {INR} Normal [facility] Comment on above: Order Comment: List [...] heart valves: 3 - 4.5 PERFORMED BY: [address] [place] [address] PATHOLOGIST INNOVATION ANALYST FLIP GERMAN M.D. Performed By: #### G LULS #### Point of Care testing , PT Coag (PPP) [Time] 32.9 s High 9.0-12.9 [facility] Comment on above: Order Comment: List the anticoagulant: COUMADIN/WARFARIN Performed By: #### G LULS #### Point of Care testing , Glucose Poct Glucometerson 0 11-15-2021 Glucose [Mass/Vol] 145 mg/dL Normal [facility] Comment on above: Result Comment: [place] om Glucose Reference Range is dependent on time and content of last meal. Glucose of more than 200 mg/dL in a nonstressed, ambulatory subject supports the diagnosis of Diabetes Mellitus. PERFORMED BY: [address] [place] [address] PATHOLOGIST INNOVATION ANALYST FLIP GERMAN M.D. Performed By: #### G LULS #### Point of Care testing , Commemt1 Glu2: Cleaned Meter Normal [facility] Comment on above: Result Comment: PERF ORMED BY: [address] [place] [address] PATHOLOGIST INNOVATION ANALYST FLIP GERMAN M.D. Performed By: #### G LULS #### Point of Care testing , Glucose [Mass/Vol] 131 mg/dL Normal [facility] Comment on above: Result Comment: [place] om Glucose Reference Range is dependent on time and content of last meal. Glucose of more than 200 mg/dL in a nonstressed, ambulatory subject supports the diagnosis of Diabetes Mellitus. Performed By: #### G LULS #### Point of Care testing , Commemt1 Glu2: Cleaned Meter [facility] Comment on above: Result Comment: PERF ORMED BY: [address] JUANITAJoann [place] [id number] PATHOLOGIST INNOVATION ANALYST FLIP GERMAN M.D. Performed By: #### G LULS #### Point of Care testing , Glucose [Mass/Vol] 201 mg/dL Normal [facility] Comment on above: Result Comment: [place] om Glucose Reference Range is dependent on time and content of last meal. Glucose of more than 200 mg/dL in a nonstressed, ambulatory subject supports the diagnosis of Diabetes Mellitus. Performed By: #### G LULS #### Point of Care testing , Commemt1 Glu2: Cleaned Meter Normal [facility] Comment on above: Result Comment: PERF ORMED BY: [address] [place] [id number] PATHOLOGIST INNOVATION ANALYST FLIP GERMAN M.D. Performed By: #### G LULS #### Point of Care testing , Glucose [Mass/Vol] 184 mg/dL Normal [facility] Comment on above: Result Comment: [place] Glucose Reference Range is dependent on time and content of last meal. Glucose of more than 200 mg/dL in a nonstressed, ambulatory subject supports the diagnosis of Diabetes Mellitus. Performed By: #### G LULS #### Point of Care testing , Prothrombin Time INRon 11-15 INR Coag (PPP) [Relative time] 2.4 {INR} Normal [facility] Comment on above: Order Comment: List [...] heart valves: 3 - 4.5 PERFORMED BY: [address] [place] [id number] PATHOLOGIST INNOVATION ANALYST FLIP GERMAN M.D. Performed By: #### G LULS #### Point of Care testing , PT Coag (PPP) [Time] 27.8 s High 9.0-12.9 [facility] Comment on above: Order Comment: List the anticoagulant: COUMADIN/WARFARIN Performed By: #### G LULS #### Point of Care testing , Glucose Poct Glucometerson 0 11-14-2021 Commemt1 Glu2: Cleaned Meter Normal [facility] Comment on above: Result Comment: PERF ORMED BY: [facility] [address] [place] [address] PATHOLOGIST INNOVATION ANALYST FLIP GERMAN M.D. Performed By: #### G LULS #### Point of Care testing , Glucose [Mass/Vol] 152 mg/dL Normal [facility] Comment on above: Result Comment: [facility] Glucose Reference Range is dependent on time and content of last meal. Glucose of more than 200 mg/dL in a nonstressed, ambulatory subject supports the diagnosis of Diabetes Mellitus. Performed By: #### G LULS #### Point of Care testing , Glucose [Mass/Vol] 179 mg/dL Normal [facility] Comment on above: Result Comment: [facility] Glucose Reference Range is dependent on time and content of last meal. Glucose of more than 200 mg/dL in a nonstressed, ambulatory subject supports the diagnosis of Diabetes Mellitus. PERFORMED BY: [facility] [address] [place] [address] PATHOLOGIST INNOVATION ANALYST FLIP GERMAN M.D. Performed By: #### G LULS #### Point of Care testing , Glucose [Mass/Vol] 211 mg/dL Normal [facility] Comment on above: Result Comment: [facility] Glucose Reference Range is dependent on time and content of last meal. Glucose of more than 200 mg/dL in a nonstressed, ambulatory subject supports the diagnosis of Diabetes Mellitus. PERFORMED BY: [address] [place] [address] PATHOLOGIST INNOVATION ANALYST FLIP GERMAN M.D. Performed By: #### G LULS #### Point of Care testing , Glucose [Mass/Vol] 184 mg/dL Normal [facility] Comment on above: Result Comment: [place] Glucose Reference Range is dependent on time and content of last meal. Glucose of more than 200 mg/dL in a nonstressed, ambulatory subject supports the diagnosis of Diabetes Mellitus. PERFORMED BY: [facility] [address] [place] [address] PATHOLOGIST INNOVATION ANALYST FLIP GERMAN M.D. Performed By: #### G LULS #### Point of Care testing , Prothrombin Time INRon 11-14 INR Coag (PPP) [Relative time] 2.2 {INR} Normal [facility] Comment on above: Order Comment: List [...] heart valves: 3 - 4.5 PERFORMED BY: [facility] [address] [place] [address] PATHOLOGIST INNOVATION ANALYST FLIP GERMAN M.D. Performed By: #### G LULS #### Point of Care testing , PT Coag (PPP) [Time] 25.7 s High 9.0-12.9 [facility] Comment on above: Order Comment: List the anticoagulant: COUMADIN/WARFARIN Performed By: #### G LULS #### Point of Care testing , Glucose Glucometer (BldC) [M ass/Vol]Ordered By: Alcides Moya on 11-13-2021 Glucose [Mass/Vol] 146 mg/dL [facility] Comment on above: Random Glucose Refer ence Range is dependent on time and content of last meal. Glucose of more than 200 mg/dL in a nonstressed, ambulatory subject supports the diagnosis of Diabetes Mellitus. Glucose Poct Glucometerson 0 11-13-2021 Glucose [Mass/Vol] 146 mg/dL Normal [facility] Comment on above: Result Comment: [place] om Glucose Reference Range is dependent on time and content of last meal. Glucose of more than 200 mg/dL in a nonstressed, ambulatory subject supports the diagnosis of Diabetes Mellitus. PERFORMED BY: [address] [place] [address] PATHOLOGIST INNOVATION ANALYST FLIP GERMAN M.D. Performed By: #### G LULS ####Point of Care testing, Commemt1 Glu2: Cleaned Meter [facility] Comment on above: Result Comment: PERF ORMED BY: [address] [place] [address] PATHOLOGIST INNOVATION ANALYST FLIP GERMAN M.D. Performed By: #### G LULS ####Point of Care testing, Glucose [Mass/Vol] 128 mg/dL Normal [facility] Comment on above: Result Comment: [place] om Glucose Reference Range is dependent on time and content of last meal. Glucose of more than 200 mg/dL in a nonstressed, ambulatory subject supports the diagnosis of Diabetes Mellitus. Performed By: #### G LULS ####Point of Care testing, Commemt1 Glu2: Cleaned Meter [facility] Comment on above: Result Comment: PERF ORMED BY: [address] [place] [address] PATHOLOGIST INNOVATION ANALYST FLIP GERMAN M.D. Performed By: #### G LULS #### Point of Care testing , Glucose [Mass/Vol] 145 mg/dL Normal [facility] Comment on above: Result Comment: [place] om Glucose Reference Range is dependent on time and content of last meal. Glucose of more than 200 mg/dL in a nonstressed, ambulatory subject supports the diagnosis of Diabetes Mellitus. Performed By: #### G LULS #### Point of Care testing , Commemt1 Glu2: Cleaned Meter [facility] Comment on above: Result Comment: PERF ORMED BY: [address] [place] [id number] PATHOLOGIST INNOVATION ANALYST FLIP GERMAN M.D. Performed By: #### G LULS #### Point of Care testing , Glucose [Mass/Vol] 122 mg/dL Normal [facility] Comment on above: Result Comment: [place] om Glucose Reference Range is dependent on time and content of last meal. Glucose of more than 200 mg/dL in a nonstressed, ambulatory subject supports the diagnosis of Diabetes Mellitus. Performed By: #### G LULS #### Point of Care testing , Glucose [Mass/Vol] 116 mg/dL Normal [facility] Comment on above: Result Comment: [place] om Glucose Reference Range is dependent on time and content of last meal. Glucose of more than 200 mg/dL in a nonstressed, ambulatory subject supports the diagnosis of Diabetes Mellitus. PERFORMED BY: [facility] [address] [place] [address] PATHOLOGIST INNOVATION ANALYST FLIP GERMAN M.D. Performed By: #### G LULS ####Point of Care testing, No Panel InformationOrdered By: Alcides Moya on 11-13-2021 Bedside Glucose Comment Glu2: cleaned meter [facility] Platelet poor plasma interna tional normalized ratio (INR) by coagulation assay (relatOrdered By: Alcides Moya on 11-13-2021 INR Coag (PPP) [Relative time] 2.6 {INR} Normal [facility] Comment on above: INR Therapeutic Rang [...] heart valves: 3 - 4.5 PERFORMED BY: [facility] [address] [place] [place] [id number] PATHOLOGIST INNOVATION ANALYST FLIP GERMAN M.D. Performed By: #### P T ####[facility] [place] [address] [facility] Prothrombin Time INROrdered By: Alcides Moya on 11-13-2021 PT Coag (PPP) [Time] 29.5 s High 9.0-12.9 [facility] Comment on above: Order Comment: List the anticoagulant: COUMADIN/WARFARIN Performed By: #### P T ####[place] [id number] [place] [id number] [facility] Albumin [Mass/volume] in Ser um or PlasmaOrdered By: Alcides Moya on 11-12-2021 Albumin [Mass/Vol] 3.1 g/dL 3.2-5.5 [facility] Basophils Auto (Bld) [#/Vol] Ordered By: Alcides Moya on 11-12-2021 Basophils (Bld) [#/Vol] 0.0 10*3/uL 0.0-0.2 [facility] Basophils/100 WBC Auto (Bld) Ordered By: Alcides Moya on 11-12-2021 Basophils/100 WBC (Bld) 0.5 % . [facility] Blood hemoglobin measurement (mass/volume)Ordered By: Alcides Moya on 11-12-2021 Hemoglobin (Bld) [Mass/Vol] 12.5 g/dL 11.8-15.4 [facility] Blood leukocytes automated c ount (number/volume)Ordered By: Alcides Moya on 11-12-2021 WBC (Bld) [#/Vol] 5.0 10*3/uL 4.5-11.0 [facility] Complete Blood Count Auto Di ffon 11-12-2021 Basophils (Bld) [#/Vol] 0.0 10*3/uL Normal 0.0-0.2 [facility] Comment on above: Result Comment: PERF ORMED BY: [facility] [address] [place] [address] PATHOLOGIST INNOVATION ANALYST FLIP GERMAN M.D. Performed By: #### G GELACIOLS #### Point of Care testing , Basophils/100 WBC (Bld) 0.5 % Normal . [facility] Comment on above: Performed By: #### G GELACIOLS #### Point of Care testing , Eosinophils (Bld) [#/Vol] 0.2 10*3/uL Normal 0.0-0.45 [facility] Comment on above: Performed By: #### G GELACIOLS #### Point of Care testing , Eosinophils/100 WBC (Bld) 3.8 % Normal . [facility] Comment on above: Performed By: #### G GELACIOLS #### Point of Care testing , Erythrocyte distribution width (RBC) [Ratio] 17.3 % High 11.9-15.3 [facility] Comment on above: Performed By: #### G GELACIOLS #### Point of Care testing , Hematocrit (Bld) [Volume fraction] 38.9 % Normal 34.0-46.4 [facility] Comment on above: Performed By: #### G GELACIOLS #### Point of Care testing , Hemoglobin (Bld) [Mass/Vol] 12.5 g/dL Normal 11.8-15.4 [facility] Comment on above: Performed By: #### G GELACIOLS #### Point of Care testing , Lymphocytes (Bld) [#/Vol] 2.0 10*3/uL Normal 1.00-4.8 [facility] Comment on above: Performed By: #### G GELACIOLS #### Point of Care testing , Lymphocytes/100 WBC (Bld) 39.7 % Normal . [facility] Comment on above: Performed By: #### G GELACIOLS #### Point of Care testing , MCH (RBC) [Entitic mass] 29.2 pg Normal 24.7-34.3 [facility] Comment on above: Performed By: #### G GELACIOLS #### Point of Care testing , MCV (RBC) [Entitic vol] 90.6 fL Normal 80-100 [facility] Comment on above: Performed By: #### G GELACIOLS #### Point of Care testing , Mean Corpuscular HGB Conc 32.2 g/dL Normal 32.0-35.0 [facility] Comment on above: Performed By: #### Charles SOSA #### Point of Care testing , Monocytes (Bld) [#/Vol] 0.5 10*3/uL Normal 0.0-0.8 [facility] Comment on above: Performed By: #### Charles SOSA #### Point of Care testing , Monocytes/100 WBC (Bld) 10.1 % Normal . [facility] Comment on above: Performed By: #### Charles SOSA #### Point of Care testing , Neutrophils (Bld) [#/Vol] 2.3 10*3/uL Normal 1.8-7.7 [facility] Comment on above: Performed By: #### Charles SOSA #### Point of Care testing , Neutrophils/100 WBC (Bld) 45.9 % Normal . [facility] Comment on above: Performed By: #### Charles BRIZUELALS #### Point of Care testing , Nucleated RBC/100 WBC (Bld) [Ratio] 0.0 % Normal 0-0.5 [facility] Comment on above: Performed By: #### Charles SOSA #### Point of Care testing , Platelet mean volume (Bld) [Entitic vol] 8.6 fL Normal 6.3-10.7 [facility] Comment on above: Performed By: #### Charles SOSA #### Point of Care testing , Platelets (Bld) [#/Vol] 241 10*3/uL Normal 150-450 [facility] Comment on above: Performed By: #### Charles SOSA #### Point of Care testing , RBC (Bld) [#/Vol] 4.29 10*6/uL Normal 3.60-5.00 [facility] Comment on above: Performed By: #### Charles SOSA #### Point of Care testing , WBC (Bld) [#/Vol] 5.0 10*3/uL Normal 4.5-11.0 [facility] Comment on above: Performed By: #### G LULS #### Point of Care testing , Comprehensive Metabolic Pane loco 11-12-2021 Albumin [Mass/Vol] 3.1 g/dL Low 3.2-5.5 [facility] Comment on above: Performed By: #### G GELACIOLS #### Point of Care testing , Albumin/Globulin [Mass ratio] 0.8 {ratio} Normal [facility] Comment on above: Performed By: #### Charles BRIZUELALS #### Point of Care testing , ALP [Catalytic activity/Vol] 84 U/L Normal 32-92 [facility] Comment on above: Performed By: #### Charles SOSA #### Point of Care testing , ALT [Catalytic activity/Vol] 13 U/L Normal 10-60 [facility] Comment on above: Performed By: #### Charles SOSA #### Point of Care testing , Anion gap [Moles/Vol] 11.9 mmol/L Normal 6.0-15.0 [facility] Comment on above: Performed By: #### Charles BRIZUELALS #### Point of Care testing , AST [Catalytic activity/Vol] 22 U/L Normal 10-42 [facility] Comment on above: Performed By: #### Charles SOSA #### Point of Care testing , Bilirubin [Mass/Vol] 0.8 mg/dL Normal 0.3-1.2 [facility] Comment on above: Performed By: #### Charles SOSA #### Point of Care testing , Calcium [Mass/Vol] 9.2 mg/dL Normal 8.2-10.2 [facility] Comment on above: Performed By: #### Charles SOSA #### Point of Care testing , Chloride [Moles/Vol] 100 mmol/L Normal 95-114 [facility] Comment on above: Performed By: #### Charles SOSA #### Point of Care testing , CO2 [Moles/Vol] 31.0 mmol/L High 22.0-30.0 [facility] Comment on above: Performed By: #### Charles SOSA #### Point of Care testing , Creatinine [Mass/Vol] 0.55 mg/dL Normal 0.44-1.03 [facility] Comment on above: Performed By: #### G LULS #### Point of Care testing , Creatinine Clr Calc Pharmacy 64.44 [facility] Comment on above: Performed By: #### G LULS #### Point of Care testing , Estimated GFR ( Trista > 60 [facility] Comment on above: Result Comment: GFR estimated reference range: According to KDOQI guidelines, <60 ml/min/1.73m2 is sufficient to diagnose a patient with chronic kidney disease. Performed By: #### G LULS #### Point of Care testing , Estimated GFR (Non- Am > 60 [facility] Comment on above: Performed By: #### G LULS #### Point of Care testing , Globulin (S) [Mass/Vol] 3.7 g/dL [facility] Comment on above: Performed By: #### G LULS #### Point of Care testing , Glucose [Mass/Vol] 130 mg/dL High 70-100 [facility] Comment on above: Result Comment: [place] Glucose Reference Range is dependent on time and content of last meal. Glucose of more than 200 mg/dL in a nonstressed, ambulatory subject supports the diagnosis of Diabetes Mellitus. ADA recommended reference range Performed By: #### G LULS #### Point of Care testing , Potassium [Moles/Vol] 3.9 mmol/L Normal 3.5-5.1 [facility] Comment on above: Performed By: #### G LULS #### Point of Care testing , Protein [Mass/Vol] 6.8 g/dL Normal 6.1-7.9 [facility] Comment on above: Performed By: #### G GELACIOLS #### Point of Care testing , Sodium [Moles/Vol] 139 mmol/L Normal 136-146 [facility] Comment on above: Performed By: #### G LULS #### Point of Care testing , Urea nitrogen [Mass/Vol] 8 mg/dL Low 9-23 [facility] Comment on above: Performed By: #### G LULS #### Point of Care testing , Creatinine and Glomerular fi ltration rate.predicted panel (S/P/Bld)Ordered By: Alcides Moya on 11-12-2021 Creatinine [Mass/Vol] 0.55 mg/dL 0.44-1.03 [facility] Eosinophils Auto (Bld) [#/Vo l]Ordered By: Alcides Moya on 11-12-2021 Eosinophils (Bld) [#/Vol] 0.2 10*3/uL 0.0-0.45 [facility] Eosinophils/100 WBC Auto (Bl d)Ordered By: Alcides Moya on 11-12-2021 Eosinophils/100 WBC (Bld) 3.8 % . [facility] Erythrocyte distribution wid th Auto (RBC) [Ratio]Ordered By: Alcides Moya on 11-12-2021 Erythrocyte distribution width (RBC) [Ratio] 17.3 % 11.9-15.3 [facility] Estimated glomerular filtrat ion rate (GFR) non- AmericanOrdered By: Alcides Moya on 11-12-2021 GFR/1.73 sq M.predicted among non-blacks MDRD (S/P/Bld) [Vol rate/Area] > 60 mL/Min [facility] Globulin Calc (S) [Mass/Vol] Ordered By: Alcides Moya on 11-12-2021 Globulin (S) [Mass/Vol] 3.7 g/dL [facility] Glucose Glucometer (BldC) [M ass/Vol]Ordered By: Alcides Moya on 11-12-2021 Glucose [Mass/Vol] 212 mg/dL [facility] Comment on above: Random Glucose Refer ence Range is dependent on time and content of last meal. Glucose of more than 200 mg/dL in a nonstressed, ambulatory subject supports the diagnosis of Diabetes Mellitus. Glucose Poct Glucometerson 0 11-12-2021 Glucose [Mass/Vol] 212 mg/dL Normal [facility] Comment on above: Result Comment: [place] Glucose Reference Range is dependent on time and content of last meal. Glucose of more than 200 mg/dL in a nonstressed, ambulatory subject supports the diagnosis of Diabetes Mellitus. PERFORMED BY: [place] [address] [place] [address] PATHOLOGIST INNOVATION ANALYST FLIP GERMAN M.D. Performed By: #### G LULS #### Point of Care testing , Glucose [Mass/Vol] 293 mg/dL Normal [facility] Comment on above: Result Comment: [place] om Glucose Reference Range is dependent on time and content of last meal. Glucose of more than 200 mg/dL in a nonstressed, ambulatory subject supports the diagnosis of Diabetes Mellitus. PERFORMED BY: [address] [place] [address] PATHOLOGIST INNOVATION ANALYST FLIP GERMAN M.D. Performed By: #### G LULS #### Point of Care testing , Commemt1 Glu2: Cleaned Meter [facility] Comment on above: Result Comment: PERF ORMED BY: [address] [place] [address] PATHOLOGIST INNOVATION ANALYST FLIP GERMAN M.D. Performed By: #### G LULS #### Point of Care testing , Glucose [Mass/Vol] 204 mg/dL Normal [facility] Comment on above: Result Comment: [place] om Glucose Reference Range is dependent on time and content of last meal. Glucose of more than 200 mg/dL in a nonstressed, ambulatory subject supports the diagnosis of Diabetes Mellitus. Performed By: #### G LULS #### Point of Care testing , Commemt1 Glu2: Cleaned Meter [facility] Comment on above: Result Comment: PERF ORMED BY: [address] [place] [id number] PATHOLOGIST INNOVATION ANALYST FLIP GERMAN M.D. Performed By: #### G LULS #### Point of Care testing , Glucose [Mass/Vol] 188 mg/dL Normal [facility] Comment on above: Result Comment: [place] om Glucose Reference Range is dependent on time and content of last meal. Glucose of more than 200 mg/dL in a nonstressed, ambulatory subject supports the diagnosis of Diabetes Mellitus. Performed By: #### G LULS #### Point of Care testing , Hematocrit Auto (Bld) [Volum e fraction]Ordered By: Alcides Moya on 11-12-2021 Hematocrit (Bld) [Volume fraction] 38.9 % 34.0-46.4 [facility] Laboratory - CoagulationOrde red By: Alcides Moya on 11-12-2021 PT Coag (PPP) [Time] 34.1 s 9.0-12.9 [facility] Laboratory - Hematology and Cell countsOrdered By: Alcides Moya on 11-12-2021 Nucleated RBC/100 WBC (Bld) [Ratio] 0.0 % 0-0.5 [facility] Lymphocytes Auto (Bld) [#/Vo l]Ordered By: Alcides Moya on 11-12-2021 Lymphocytes (Bld) [#/Vol] 2.0 10*3/uL 1.00-4.8 [facility] Lymphocytes/100 WBC Auto (Bl d)Ordered By: Alcides Moya on 11-12-2021 Lymphocytes/100 WBC (Bld) 39.7 % . [facility] MCH Auto (RBC) [Entitic mass ]Ordered By: Alcides Moya on 11-12-2021 MCH (RBC) [Entitic mass] 29.2 pg 24.7-34.3 [facility] MCHC Auto (RBC) [Mass/Vol]Or dered By: Alcides Moya on 11-12-2021 MCHC (RBC) [Mass/Vol] 32.2 g/dL 32.0-35.0 [facility] MCV Auto (RBC) [Entitic vol] Ordered By: Alcides Moya on 11-12-2021 MCV (RBC) [Entitic vol] 90.6 fL 80-100 [facility] Monocytes Auto (Bld) [#/Vol] Ordered By: Alcides Moya on 11-12-2021 Monocytes (Bld) [#/Vol] 0.5 10*3/uL 0.0-0.8 [facility] Monocytes/100 WBC Auto (Bld) Ordered By: Alcides Moya on 11-12-2021 Monocytes/100 WBC (Bld) 10.1 % . [facility] Neutrophils Auto (Bld) [#/Vo l]Ordered By: Alcides Moya on 11-12-2021 Neutrophils (Bld) [#/Vol] 2.3 10*3/uL 1.8-7.7 [facility] Neutrophils/100 WBC Auto (Bl d)Ordered By: Alcides Moya on 11-12-2021 Neutrophils/100 WBC (Bld) 45.9 % . [facility] No Panel InformationOrdered By: Alcides Moya on 11-12-2021 Bedside Glucose Comment Glu2: cleaned meter [facility] Estimated GFR () > 60 mL/Min [facility] Comment on above: GFR estimated refere nce range: According to KDOQI guidelines, <60 ml/min/1.73m2 is sufficient to diagnose a patient with chronic kidney disease. Pharmacy Creatinine Clearance (Chem 64.44 [facility] Platelet mean volume Auto (B ld) [Entitic vol]Ordered By: Alcides Moya on 11-12-2021 Platelet mean volume (Bld) [Entitic vol] 8.6 fL 6.3-10.7 [facility] Platelet poor plasma interna tional normalized ratio (INR) by coagulation assay (relatOrdered By: Alcides Moya on 11-12-2021 INR Coag (PPP) [Relative time] 3.0 {INR} [facility] Comment on above: INR Therapeutic Rang [...] 11-12-2021 Platelets (Bld) [#/Vol] 241 10*3/uL 150-450 [facility] Prealbuminon 11-12-2021 Prealbumin [Mass/Vol] 21.7 mg/dL Normal 18.0-38.0 [facility] Comment on above: Result Comment: PERF ORMED BY: [facility] [address] [place] [address] PATHOLOGIST INNOVATION ANALYST FLIP GERMAN M.D. Performed By: #### G LULS #### Point of Care testing , Protein [Mass/volume] in Ser um or PlasmaOrdered By: Alcides Moya on 11-12-2021 Protein [Mass/Vol] 6.8 g/dL 6.1-7.9 [facility] Prothrombin Time INRon 11-12 INR Coag (PPP) [Relative time] 3.0 {INR} Normal [facility] Comment on above: Order Comment: List [...] heart valves: 3 - 4.5 PERFORMED BY: [place] [address] [place] [address] PATHOLOGIST INNOVATION ANALYST FLIP GERMAN M.D. Performed By: #### G IAN #### Point of Care testing , PT Coag (PPP) [Time] 34.1 s High 9.0-12.9 [facility] Comment on above: Order Comment: List the anticoagulant: COUMADIN/WARFARIN Performed By: #### G IAN #### Point of Care testing , RBC Auto (Bld) [#/Vol]Ordere d By: Alcides Moya on 11-12-2021 RBC (Bld) [#/Vol] 4.29 10*6/uL 3.60-5.00 [facility] Serum or plasma alanine engel otransferase measurement without P-5'-P (enzymatic activiOrdered By: Alcides Moya on 11-12-2021 ALT No additional P-5'-P [Catalytic activity/Vol] 13 U/L 10-60 [facility] Serum or plasma albumin/glob ulin mass ratioOrdered By: Alcides Moya on 11-12-2021 Albumin/Globulin [Mass ratio] 0.8 {ratio} [facility] Serum or plasma alkaline bouchra sphatase measurement (enzymatic activity/volume)Ordered By: Alcides Moya on 11-12-2021 ALP [Catalytic activity/Vol] 84 U/L 32-92 [facility] Serum or plasma anion gap de terminationOrdered By: Alcides Moya on 11-12-2021 Anion gap [Moles/Vol] 11.9 mmol/L 6.0-15.0 [facility] Serum or plasma aspartate am inotransferase measurement (enzymatic activity/volume)Ordered By: Alcides Moya on 11-12-2021 AST [Catalytic activity/Vol] 22 U/L 10-42 [facility] Serum or plasma calcium alondra urement (mass/volume)Ordered By: Alcides Moya on 11-12-2021 Calcium [Mass/Vol] 9.2 mg/dL 8.2-10.2 [facility] Serum or plasma chloride link surement (moles/volume)Ordered By: Alcides Moya on 11-12-2021 Chloride [Moles/Vol] 100 mmol/L 95-114 [facility] Serum or plasma glucose alondra urement (mass/volume)Ordered By: Alcides Moya on 11-12-2021 Glucose [Mass/Vol] 130 mg/dL 70-100 [facility] Comment on above: ADA recommended refe rence range Random Glucose Reference Range is dependent on time and content of last meal. Glucose of more than 200 mg/dL in a nonstressed, ambulatory subject supports the diagnosis of Diabetes Mellitus. Serum or plasma potassium me asurement (moles/volume)Ordered By: Alcides Moya on 11-12-2021 Potassium [Moles/Vol] 3.9 mmol/L 3.5-5.1 [facility] Serum or plasma prealbumin m easurement (mass/volume)Ordered By: Alcides Moya on 11-12-2021 Prealbumin [Mass/Vol] 21.7 mg/dL 18.0-38.0 [facility] Serum or plasma sodium measu rement (moles/volume)Ordered By: Alcides Moya on 11-12-2021 Sodium [Moles/Vol] 139 mmol/L 136-146 [facility] Serum or plasma total biliru bin measurement (mass/volume)Ordered By: Alcides Moya on 11-12-2021 Bilirubin [Mass/Vol] 0.8 mg/dL 0.3-1.2 [facility] Serum or plasma total carbon dioxide measurement (moles/volume)Ordered By: Alcides Moya on 11-12-2021 CO2 [Moles/Vol] 31.0 mmol/L 22.0-30.0 [facility] Serum or plasma urea nitroge n measurement (mass/volume)Ordered By: Alcides Moya on 11-12-2021 Urea nitrogen [Mass/Vol] 8 mg/dL 9- [facility] Glucose Glucometer (BldC) [M ass/Vol]Ordered By: Gaye Claire on 11-11-2021 Glucose [Mass/Vol] 127 mg/dL [facility] Comment on above: Random Glucose Refer ence Range is dependent on time and content of last meal. Glucose of more than 200 mg/dL in a nonstressed, ambulatory subject supports the diagnosis of Diabetes Mellitus. Glucose Poct Glucometerson 0 11-11-2021 Glucose [Mass/Vol] 168 mg/dL Normal [facility] Comment on above: Result Comment: [place] Glucose Reference Range is dependent on time and content of last meal. Glucose of more than 200 mg/dL in a nonstressed, ambulatory subject supports the diagnosis of Diabetes Mellitus. PERFORMED BY: [address] [place] [address] PATHOLOGIST INN[employer]ATION ANALYST FLIP GERMAN M.D. Performed By: #### G LULS #### Point of Care testing , Commemt1 Glu2: Cleaned Meter [facility] Comment on above: Result Comment: PERF ORMED BY: [facility] [address] [place] [address] PATHOLOGIST INN[employer]ATION ANALYST FLIP GERMAN M.D. Performed By: #### G LULS #### Point of Care testing , Glucose [Mass/Vol] 127 mg/dL Normal [facility] Comment on above: Result Comment: [place] om Glucose Reference Range is dependent on time and content of last meal. Glucose of more than 200 mg/dL in a nonstressed, ambulatory subject supports the diagnosis of Diabetes Mellitus. Performed By: #### G LULS #### Point of Care testing , Commemt1 Glu2: Cleaned Meter [facility] Comment on above: Result Comment: PERF ORMED BY: [facility] [address] [place] [address] PATHOLOGIST INN[employer]ATION ANALYST FLIP GERMAN M.D. Performed By: #### G LULS ####Point of Care testing, Glucose [Mass/Vol] 228 mg/dL Normal [facility] Comment on above: Result Comment: [place] om Glucose Reference Range is dependent on time and content of last meal. Glucose of more than 200 mg/dL in a nonstressed, ambulatory subject supports the diagnosis of Diabetes Mellitus. Performed By: #### G LULS ####Point of Care testing, Commemt1 Glu2: Cleaned Meter [facility] Comment on above: Result Comment: PERF ORMED BY: [facility] [address] [place] [address] PATHOLOGIST INNOVATION ANALYST FLIP GERMAN M.D. Performed By: #### G LULS #### Point of Care testing , Glucose [Mass/Vol] 150 mg/dL Normal [facility] Comment on above: Result Comment: [place] om Glucose Reference Range is dependent on time and content of last meal. Glucose of more than 200 mg/dL in a nonstressed, ambulatory subject supports the diagnosis of Diabetes Mellitus. Performed By: #### G LULS #### Point of Care testing , Laboratory - CoagulationOrde red By: Enrrique Mota on 11-11-2021 PT Coag (PPP) [Time] 31.5 s 9.0-12.9 [facility] No Panel InformationOrdered By: Gaye Claire on 11-11-2021 Bedside Glucose Comment Glu2: cleaned meter [facility] Platelet poor plasma interna tional normalized ratio (INR) by coagulation assay (relatOrdered By: Enrrique Mota on 11-11-2021 INR Coag (PPP) [Relative time] 2.7 {INR} [facility] Comment on above: INR Therapeutic Rang [...] Coag (PPP) [Relative time] 2.7 {INR} Normal [facility] Comment on above: Result Comment: INR [...] heart valves: 3 - 4.5 PERFORMED BY: [address] [place] [address] PATHOLOGIST [employer]ATION ANALYST FLIP GERMAN M.D. Performed By: #### G IAN #### Point of Care testing , PT Coag (PPP) [Time] 31.5 s High 9.0-12.9 [facility] Comment on above: Performed By: #### G IAN #### Point of Care testing , Glucose Poct Glucometerson 0 11-10-2021 Glucose [Mass/Vol] 124 mg/dL Normal [facility] Comment on above: Result Comment: [facility] Glucose Reference Range is dependent on time and content of last meal. Glucose of more than 200 mg/dL in a nonstressed, ambulatory subject supports the diagnosis of Diabetes Mellitus. PERFORMED BY: [facility] [address] [place] [address] PATHOLOGIST INNOVATION ANALYST FLIP GERMAN M.D. Performed By: #### G IAN #### Point of Care testing , Commemt1 Glu2: Cleaned Meter Normal [facility] Comment on above: Result Comment: PERF ORMED BY: [address] [place] [address] PATHOLOGIST INNOVATION ANALYST FLIP GERMAN M.D. Performed By: #### G LULS #### Point of Care testing , Glucose [Mass/Vol] 143 mg/dL Normal [facility] Comment on above: Result Comment: [place] Glucose Reference Range is dependent on time and content of last meal. Glucose of more than 200 mg/dL in a nonstressed, ambulatory subject supports the diagnosis of Diabetes Mellitus. Performed By: #### G LULS #### Point of Care testing , Commemt1 Glu2: Cleaned Meter [facility] Comment on above: Result Comment: PERF ORMED BY: [address] [place] [address] PATHOLOGIST INNOVATION ANALYST FLIP GERMAN M.D. Performed By: #### G LULS #### Point of Care testing , Glucose [Mass/Vol] 190 mg/dL Normal [facility] Comment on above: Result Comment: [place] Glucose Reference Range is dependent on time and content of last meal. Glucose of more than 200 mg/dL in a nonstressed, ambulatory subject supports the diagnosis of Diabetes Mellitus. Performed By: #### G LULS #### Point of Care testing , Commemt1 Glu2: Cleaned Meter [facility] Comment on above: Result Comment: PERF ORMED BY: [address] [place] [id number] PATHOLOGIST INNOVATION ANALYST FLIP GERMAN M.D. Performed By: #### G LULS #### Point of Care testing , Glucose [Mass/Vol] 136 mg/dL Normal [facility] Comment on above: Result Comment: [place] Glucose Reference Range is dependent on time and content of last meal. Glucose of more than 200 mg/dL in a nonstressed, ambulatory subject supports the diagnosis of Diabetes Mellitus. Performed By: #### G LULS #### Point of Care testing , Prothrombin Time INRon 08-30 -2022 INR Coag (PPP) [Relative time] 2.5 {INR} Normal [facility] Comment on above: Result Comment: INR [...] heart valves: 3 - 4.5 PERFORMED BY: [address] [place] [address] PATHOLOGIST INNOVATION ANALYST FLIP GERMAN M.D. Performed By: #### G LULS #### Point of Care testing , PT Coag (PPP) [Time] 28.4 s High 9.0-12.9 [facility] Comment on above: Performed By: #### G LULS #### Point of Care testing , Glucose Poct Glucometerson 0 11-09-2021 Commemt1 Glu2: Cleaned Meter [facility] Comment on above: Result Comment: PERF ORMED BY: [address] [place] [address] PATHOLOGIST INNOVATION ANALYST FLIP GERMAN M.D. Performed By: #### G LULS #### Point of Care testing , Glucose [Mass/Vol] 165 mg/dL [facility] Comment on above: Result Comment: [facility] Glucose Reference Range is dependent on time and content of last meal. Glucose of more than 200 mg/dL in a nonstressed, ambulatory subject supports the diagnosis of Diabetes Mellitus. Performed By: #### G LULS #### Point of Care testing , Commemt1 Glu2: Cleaned Meter [facility] Comment on above: Result Comment: PERF ORMED BY: [address] [place] [id number] PATHOLOGIST INNOVATION ANALYST FLIP GERMAN M.D. Performed By: #### G LULS #### Point of Care testing , Glucose [Mass/Vol] 156 mg/dL Normal [facility] Comment on above: Result Comment: [place] Glucose Reference Range is dependent on time and content of last meal. Glucose of more than 200 mg/dL in a nonstressed, ambulatory subject supports the diagnosis of Diabetes Mellitus. Performed By: #### G LULS #### Point of Care testing , Glucose [Mass/Vol] 257 mg/dL Normal [facility] Comment on above: Result Comment: [place] Glucose Reference Range is dependent on time and content of last meal. Glucose of more than 200 mg/dL in a nonstressed, ambulatory subject supports the diagnosis of Diabetes Mellitus. PERFORMED BY: [address] [place] [address] PATHOLOGIST INNOVATION ANALYST FLIP GERMAN M.D. Performed By: #### G LULS #### Point of Care testing , Glucose [Mass/Vol] 142 mg/dL Normal [facility] Comment on above: Result Comment: [place] Glucose Reference Range is dependent on time and content of last meal. Glucose of more than 200 mg/dL in a nonstressed, ambulatory subject supports the diagnosis of Diabetes Mellitus. PERFORMED BY: [address] [place] [address] PATHOLOGIST INNOVATION ANALYST FLIP GERMAN M.D. Performed By: #### G LULS #### Point of Care testing , Prothrombin Time INRon 11-09 INR Coag (PPP) [Relative time] 2.7 {INR} Normal [facility] Comment on above: Result Comment: INR [...] heart valves: 3 - 4.5 PERFORMED BY: [facility] [address] [place] [id number] PATHOLOGIST INNOVATION ANALYST FLIP GERMAN M.D. Performed By: #### G LULS #### Point of Care testing , PT Coag (PPP) [Time] 30.5 s High 9.0-12.9 [facility] Comment on above: Performed By: #### G LULS #### Point of Care testing , Glucose Poct Glucometerson 0 11-08-2021 Glucose [Mass/Vol] 180 mg/dL Normal [facility] Comment on above: Result Comment: [facility] Glucose Reference Range is dependent on time and content of last meal. Glucose of more than 200 mg/dL in a nonstressed, ambulatory subject supports the diagnosis of Diabetes Mellitus. PERFORMED BY: [address] [place] [id number] PATHOLOGIST INNOVATION ANALYST FLIP GERMAN M.D. Performed By: #### G LULS #### Point of Care testing , Glucose [Mass/Vol] 161 mg/dL Normal [facility] Comment on above: Result Comment: [facility] Glucose Reference Range is dependent on time and content of last meal. Glucose of more than 200 mg/dL in a nonstressed, ambulatory subject supports the diagnosis of Diabetes Mellitus. PERFORMED BY: [address] [place] [address] PATHOLOGIST INNOVATION ANALYST FLIP GERMAN M.D. Performed By: #### G LULS #### Point of Care testing , Glucose [Mass/Vol] 193 mg/dL Normal [facility] Comment on above: Result Comment: [facility] Glucose Reference Range is dependent on time and content of last meal. Glucose of more than 200 mg/dL in a nonstressed, ambulatory subject supports the diagnosis of Diabetes Mellitus. PERFORMED BY: [address] [place] [id number] PATHOLOGIST INNOVATION ANALYST FLIP GERMAN M.D. Performed By: #### G LULS #### Point of Care testing , Commemt1 Glu2: Cleaned Meter Normal [facility] Comment on above: Result Comment: PERF ORMED BY: [facility] [address] [place] [place] [id number] PATHOLOGIST INNOVATION ANALYST FLIP GERMAN M.D. Performed By: #### G LULS #### Point of Care testing , Glucose [Mass/Vol] 155 mg/dL Normal [facility] Comment on above: Result Comment: [place] Glucose Reference Range is dependent on time and content of last meal. Glucose of more than 200 mg/dL in a nonstressed, ambulatory subject supports the diagnosis of Diabetes Mellitus. Performed By: #### G LULS #### Point of Care testing , Prothrombin Time INRon 11-08 INR Coag (PPP) [Relative time] 2.9 {INR} Normal [facility] Comment on above: Result Comment: INR [...] heart valves: 3 - 4.5 PERFORMED BY: [address] [place] [address] PATHOLOGIST INNOVATION ANALYST FLIP GERMAN M.D. Performed By: #### G LULS #### Point of Care testing , PT Coag (PPP) [Time] 33.0 s High 9.0-12.9 [facility] Comment on above: Performed By: #### G LULS #### Point of Care testing , Glucose Poct Glucometerson 0 11-07-2021 Commemt1 Glu2: Cleaned Meter [facility] Comment on above: Result Comment: PERF ORMED BY: [facility] [address] [place] [address] PATHOLOGIST INNOVATION ANALYST FLIP GERMAN M.D. Performed By: #### G LULS #### Point of Care testing , Glucose [Mass/Vol] 183 mg/dL Normal [facility] Comment on above: Result Comment: [place] Glucose Reference Range is dependent on time and content of last meal. Glucose of more than 200 mg/dL in a nonstressed, ambulatory subject supports the diagnosis of Diabetes Mellitus. Performed By: #### G LULS #### Point of Care testing , Commemt1 Glu2: Cleaned Meter [facility] Comment on above: Result Comment: PERF ORMED BY: [facility] [address] [place] [address] PATHOLOGIST INNOVATION ANALYST FLIP GERMAN M.D. Performed By: #### G LULS #### Point of Care testing , Glucose [Mass/Vol] 154 mg/dL Normal [facility] Comment on above: Result Comment: [place] Glucose Reference Range is dependent on time and content of last meal. Glucose of more than 200 mg/dL in a nonstressed, ambulatory subject supports the diagnosis of Diabetes Mellitus. Performed By: #### G LULS #### Point of Care testing , Commemt1 Glu2: Cleaned Meter Normal [facility] Comment on above: Result Comment: PERF ORMED BY: [facility] [address] [place] [address] PATHOLOGIST INNOVATION ANALYST FLIP GERMAN M.D. Performed By: #### G LULS #### Point of Care testing , Glucose [Mass/Vol] 339 mg/dL Normal [facility] Comment on above: Result Comment: [place] Glucose Reference Range is dependent on time and content of last meal. Glucose of more than 200 mg/dL in a nonstressed, ambulatory subject supports the diagnosis of Diabetes Mellitus. Performed By: #### G LULS #### Point of Care testing , Glucose [Mass/Vol] 146 mg/dL Normal [facility] Comment on above: Result Comment: [place] Glucose Reference Range is dependent on time and content of last meal. Glucose of more than 200 mg/dL in a nonstressed, ambulatory subject supports the diagnosis of Diabetes Mellitus. PERFORMED BY: [address] [place] [address] PATHOLOGIST INNOVATION ANALYST FLIP GERMAN M.D. Performed By: #### G LULS #### Point of Care testing , Prothrombin Time INRon 11-07 INR Coag (PPP) [Relative time] 2.0 {INR} Normal [facility] Comment on above: Result Comment: INR [...] heart valves: 3 - 4.5 PERFORMED BY: [facility] [address] [place] [address] PATHOLOGIST INNOVATION ANALYST FLIP GERMAN M.D. Performed By: #### G LULS #### Point of Care testing , PT Coag (PPP) [Time] 22.8 s High 9.0-12.9 [facility] Comment on above: Performed By: #### G LULS #### Point of Care testing , Basic Metabolic Panelon 10-13 Calcium [Mass/Vol] 9.1 mg/dL Normal 8.2-10.2 [facility] Comment on above: Performed By: #### G LULS #### Point of Care testing , Chloride [Moles/Vol] 98 mmol/L Normal 95-114 [facility] Comment on above: Performed By: #### G LULS #### Point of Care testing , CO2 [Moles/Vol] 33.3 mmol/L High 22.0-30.0 [facility] Comment on above: Performed By: #### G LULS #### Point of Care testing , Creatinine [Mass/Vol] 0.63 mg/dL Normal 0.44-1.03 [facility] Comment on above: Performed By: #### G LULS #### Point of Care testing , Creatinine Clr Calc Pharmacy 65.08 [facility] Comment on above: Result Comment: PERF ORMED BY: [facility] [address] [place] [address] PATHOLOGIST INNOVATION ANALYST FLIP GERMAN M.D. Performed By: #### G LULS #### Point of Care testing , Estimated GFR ( Trista > 60 [facility] Comment on above: Result Comment: GFR estimated reference range: According to KDOQI guidelines, <60 ml/min/1.73m2 is sufficient to diagnose a patient with chronic kidney disease. Performed By: #### G LULS #### Point of Care testing , Estimated GFR (Non- Am > 60 Normal [facility] Comment on above: Performed By: #### G LULS #### Point of Care testing , Glucose [Mass/Vol] 159 mg/dL High 70-100 [facility] Comment on above: Result Comment: [place] Glucose Reference Range is dependent on time and content of last meal. Glucose of more than 200 mg/dL in a nonstressed, ambulatory subject supports the diagnosis of Diabetes Mellitus. ADA recommended reference range Performed By: #### G LULS #### Point of Care testing , Potassium [Moles/Vol] 3.3 mmol/L Low 3.5-5.1 [facility] Comment on above: Performed By: #### G LULS #### Point of Care testing , Sodium [Moles/Vol] 140 mmol/L Normal 136-146 [facility] Comment on above: Performed By: #### G LULS #### Point of Care testing , Urea nitrogen [Mass/Vol] 6 mg/dL Low 9-23 [facility] Comment on above: Performed By: #### G LULS #### Point of Care testing , Basophils Auto (Bld) [#/Vol] Ordered By: Faustina Barr on 11-06-2021 Basophils (Bld) [#/Vol] 0.0 10*3/uL 0.0-0.2 [facility] Basophils/100 WBC Auto (Bld) Ordered By: Faustina Barr on 11-06-2021 Basophils/100 WBC (Bld) 0.5 % . [facility] Blood hemoglobin measurement (mass/volume)Ordered By: Faustina Barr on 11-06-2021 Hemoglobin (Bld) [Mass/Vol] 11.8 g/dL 11.8-15.4 [facility] Blood leukocytes automated c ount (number/volume)Ordered By: Faustina Barr on 11-06-2021 WBC (Bld) [#/Vol] 5.6 10*3/uL 4.5-11.0 [facility] Complete Blood Count Auto Di ffon 11-06-2021 Basophils (Bld) [#/Vol] 0.0 10*3/uL Normal 0.0-0.2 [facility] Comment on above: Result Comment: PERF ORMED BY: [facility] [address] PATHOLOGIST INNOVATION ANALYST FLIP GERMAN M.D. Performed By: #### G LULS #### Point of Care testing , Basophils/100 WBC (Bld) 0.5 % Normal . [facility] Comment on above: Performed By: #### G LULS #### Point of Care testing , Eosinophils (Bld) [#/Vol] 0.2 10*3/uL Normal 0.0-0.45 [facility] Comment on above: Performed By: #### G LULS #### Point of Care testing , Eosinophils/100 WBC (Bld) 3.9 % Normal . [facility] Comment on above: Performed By: #### G LULS #### Point of Care testing , Erythrocyte distribution width (RBC) [Ratio] 16.6 % High 11.9-15.3 [facility] Comment on above: Performed By: #### G LULS #### Point of Care testing , Hematocrit (Bld) [Volume fraction] 37.0 % Normal 34.0-46.4 [facility] Comment on above: Performed By: #### G LULS #### Point of Care testing , Hemoglobin (Bld) [Mass/Vol] 11.8 g/dL Normal 11.8-15.4 [facility] Comment on above: Performed By: #### G LULS #### Point of Care testing , Lymphocytes (Bld) [#/Vol] 2.1 10*3/uL Normal 1.00-4.8 [facility] Comment on above: Performed By: #### G LULS #### Point of Care testing , Lymphocytes/100 WBC (Bld) 37.6 % Normal . [facility] Comment on above: Performed By: #### G LULS #### Point of Care testing , MCH (RBC) [Entitic mass] 28.8 pg Normal 24.7-34.3 [facility] Comment on above: Performed By: #### Charles SOSA #### Point of Care testing , MCV (RBC) [Entitic vol] 90.5 fL Normal 80-100 [facility] Comment on above: Performed By: #### Charles SOSA #### Point of Care testing , Mean Corpuscular HGB Conc 31.9 g/dL Low 32.0-35.0 [facility] Comment on above: Performed By: #### Charles BRIZUELALS #### Point of Care testing , Monocytes (Bld) [#/Vol] 0.7 10*3/uL Normal 0.0-0.8 [facility] Comment on above: Performed By: #### Charles SOSA #### Point of Care testing , Monocytes/100 WBC (Bld) 12.7 % Normal . [facility] Comment on above: Performed By: #### Charles BRIZUELALS #### Point of Care testing , Neutrophils (Bld) [#/Vol] 2.5 10*3/uL Normal 1.8-7.7 [facility] Comment on above: Performed By: #### Charles SOSA #### Point of Care testing , Neutrophils/100 WBC (Bld) 45.3 % Normal . [facility] Comment on above: Performed By: #### Charles SOSA #### Point of Care testing , Nucleated RBC/100 WBC (Bld) [Ratio] 0.1 % Normal 0-0.5 [facility] Comment on above: Performed By: #### Charles BRIZUELALS #### Point of Care testing , Platelet mean volume (Bld) [Entitic vol] 8.3 fL Normal 6.3-10.7 [facility] Comment on above: Performed By: #### Charles SOSA #### Point of Care testing , Platelets (Bld) [#/Vol] 298 10*3/uL Normal 150-450 [facility] Comment on above: Performed By: #### Charles SOSA #### Point of Care testing , RBC (Bld) [#/Vol] 4.09 10*6/uL Normal 3.60-5.00 [facility] Comment on above: Performed By: #### G LULS #### Point of Care testing , WBC (Bld) [#/Vol] 5.6 10*3/uL Normal 4.5-11.0 [facility] Comment on above: Performed By: #### G LULS #### Point of Care testing , Creatinine and Glomerular fi ltration rate.predicted panel (S/P/Bld)Ordered By: Faustina Barr on 11-06-2021 Creatinine [Mass/Vol] 0.63 mg/dL 0.44-1.03 [facility] Eosinophils Auto (Bld) [#/Vo l]Ordered By: Faustina Barr on 11-06-2021 Eosinophils (Bld) [#/Vol] 0.2 10*3/uL 0.0-0.45 [facility] Eosinophils/100 WBC Auto (Bl d)Ordered By: Faustina Barr on 11-06-2021 Eosinophils/100 WBC (Bld) 3.9 % . [facility] Erythrocyte distribution wid th Auto (RBC) [Ratio]Ordered By: Faustina Barr on 11-06-2021 Erythrocyte distribution width (RBC) [Ratio] 16.6 % 11.9-15.3 [facility] Estimated glomerular filtrat ion rate (GFR) non- AmericanOrdered By: Faustina Barr on 11-06-2021 GFR/1.73 sq M.predicted among non-blacks MDRD (S/P/Bld) [Vol rate/Area] > 60 mL/Min [facility] Glucose Poct Glucometerson 0 11-06-2021 Commemt1 Glu2: Cleaned Meter Normal [facility] Comment on above: Result Comment: PERF ORMED BY: [facility] [address] [place] [address] PATHOLOGIST INNOVATION ANALYST FLIP GERMAN M.D. Performed By: #### G LULS #### Point of Care testing , Glucose [Mass/Vol] 175 mg/dL Normal [facility] Comment on above: Result Comment: [place] Glucose Reference Range is dependent on time and content of last meal. Glucose of more than 200 mg/dL in a nonstressed, ambulatory subject supports the diagnosis of Diabetes Mellitus. Performed By: #### G LULS #### Point of Care testing , Commemt1 Glu2: Cleaned Meter Normal [facility] Comment on above: Result Comment: PERF ORMED BY: [address] [place] [address] PATHOLOGIST INNOVATION ANALYST FLIP GERMAN M.D. Performed By: #### G LULS #### Point of Care testing , Glucose [Mass/Vol] 141 mg/dL Normal [facility] Comment on above: Result Comment: [place] Glucose Reference Range is dependent on time and content of last meal. Glucose of more than 200 mg/dL in a nonstressed, ambulatory subject supports the diagnosis of Diabetes Mellitus. Performed By: #### G LULS #### Point of Care testing , Glucose [Mass/Vol] 171 mg/dL Normal [facility] Comment on above: Result Comment: [place] om Glucose Reference Range is dependent on time and content of last meal. Glucose of more than 200 mg/dL in a nonstressed, ambulatory subject supports the diagnosis of Diabetes Mellitus. PERFORMED BY: [address] [place] [address] PATHOLOGIST INNOVATION ANALYST FLIP GERMAN M.D. Performed By: #### G LULS #### Point of Care testing , Glucose [Mass/Vol] 139 mg/dL Normal [facility] Comment on above: Result Comment: [place] Glucose Reference Range is dependent on time and content of last meal. Glucose of more than 200 mg/dL in a nonstressed, ambulatory subject supports the diagnosis of Diabetes Mellitus. PERFORMED BY: [address] [place] [address] PATHOLOGIST INNOVATION ANALYST FLIP GERMAN M.D. Performed By: #### G LULS #### Point of Care testing , Hematocrit Auto (Bld) [Volum e fraction]Ordered By: Faustina Barr on 11-06-2021 Hematocrit (Bld) [Volume fraction] 37.0 % 34.0-46.4 [facility] Laboratory - Hematology and Cell countsOrdered By: Faustina Barr on 11-06-2021 Nucleated RBC/100 WBC (Bld) [Ratio] 0.1 % 0-0.5 [facility] Lymphocytes Auto (Bld) [#/Vo l]Ordered By: Faustina Barr on 11-06-2021 Lymphocytes (Bld) [#/Vol] 2.1 10*3/uL 1.00-4.8 [facility] Lymphocytes/100 WBC Auto (Bl d)Ordered By: Faustina Barr on 11-06-2021 Lymphocytes/100 WBC (Bld) 37.6 % . [facility] MCH Auto (RBC) [Entitic mass ]Ordered By: Faustina Barr on 11-06-2021 MCH (RBC) [Entitic mass] 28.8 pg 24.7-34.3 [facility] MCHC Auto (RBC) [Mass/Vol]Or dered By: Faustina Barr on 11-06-2021 MCHC (RBC) [Mass/Vol] 31.9 g/dL 32.0-35.0 [facility] MCV Auto (RBC) [Entitic vol] Ordered By: Faustina Barr on 11-06-2021 MCV (RBC) [Entitic vol] 90.5 fL 80-100 [facility] Monocytes Auto (Bld) [#/Vol] Ordered By: Faustina Barr on 11-06-2021 Monocytes (Bld) [#/Vol] 0.7 10*3/uL 0.0-0.8 [facility] Monocytes/100 WBC Auto (Bld) Ordered By: Faustina Barr on 11-06-2021 Monocytes/100 WBC (Bld) 12.7 % . [facility] Neutrophils Auto (Bld) [#/Vo l]Ordered By: Faustina Barr on 11-06-2021 Neutrophils (Bld) [#/Vol] 2.5 10*3/uL 1.8-7.7 [facility] Neutrophils/100 WBC Auto (Bl d)Ordered By: Faustina Barr on 11-06-2021 Neutrophils/100 WBC (Bld) 45.3 % . [facility] No Panel InformationOrdered By: Faustina Barr on 11-06-2021 Estimated GFR () > 60 mL/Min [facility] Comment on above: GFR estimated refere nce range: According to KDOQI guidelines, <60 ml/min/1.73m2 is sufficient to diagnose a patient with chronic kidney disease. Pharmacy Creatinine Clearance (Chem 65.08 [facility] Platelet mean volume Auto (B ld) [Entitic vol]Ordered By: Faustina Brar on 11-06-2021 Platelet mean volume (Bld) [Entitic vol] 8.3 fL 6.3-10.7 [facility] Platelets Auto (Bld) [#/Vol] Ordered By: Faustina Barr on 11-06-2021 Platelets (Bld) [#/Vol] 298 10*3/uL 150-450 [facility] Prothrombin Time INRon 11-06 INR Coag (PPP) [Relative time] 1.3 {INR} Normal [facility] Comment on above: Result Comment: INR [...] heart valves: 3 - 4.5 PERFORMED BY: [address] [place] [address] PATHOLOGIST INNOVATION ANALYST FLIP GERMAN M.D. Performed By: #### G LULS #### Point of Care testing , PT Coag (PPP) [Time] 14.4 s High 9.0-12.9 [facility] Comment on above: Performed By: #### G LULS #### Point of Care testing , RBC Auto (Bld) [#/Vol]Ordere d By: Faustina Barr on 11-06-2021 RBC (Bld) [#/Vol] 4.09 10*6/uL 3.60-5.00 [facility] Serum or plasma calcium alondra urement (mass/volume)Ordered By: Faustina Barr on 11-06-2021 Calcium [Mass/Vol] 9.1 mg/dL 8.2-10.2 [facility] Serum or plasma chloride link surement (moles/volume)Ordered By: Faustina Barr on 11-06-2021 Chloride [Moles/Vol] 98 mmol/L 95-114 [facility] Serum or plasma glucose alondra urement (mass/volume)Ordered By: Faustina Barr on 11-06-2021 Glucose [Mass/Vol] 159 mg/dL 70-100 [facility] [facility] Comment on above: ADA recommended refe [...] on 11-06-2021 Potassium [Moles/Vol] 3.3 mmol/L 3.5-5.1 [facility] Serum or plasma sodium measu rement (moles/volume)Ordered By: Faustina Barr on 11-06-2021 Sodium [Moles/Vol] 140 mmol/L 136-146 [facility] Serum or plasma total carbon dioxide measurement (moles/volume)Ordered By: Faustina Barr on 11-06-2021 CO2 [Moles/Vol] 33.3 mmol/L 22.0-30.0 [facility] Serum or plasma urea nitroge n measurement (mass/volume)Ordered By: Faustina Barr on 11-06-2021 Urea nitrogen [Mass/Vol] 6 mg/dL 9-23 [facility] Urine culture routineOrdered By: Marvin Peter on 11-06-2021 Bacteria identified Cx Nom (U) Escherichia coli [facility] Glucose Poct Glucometerson 0 11-05-2021 Commemt1 Glu2: Cleaned Meter Normal [facility] Comment on above: Result Comment: PERF ORMED BY: [place] [id number] PATHOLOGIST INNOVATION ANALYST FLIP GERMAN M.D. Performed By: #### G LULS #### Point of Care testing , Glucose [Mass/Vol] 202 mg/dL Normal [facility] Comment on above: Result Comment: [place] Glucose Reference Range is dependent on time and content of last meal. Glucose of more than 200 mg/dL in a nonstressed, ambulatory subject supports the diagnosis of Diabetes Mellitus. Performed By: #### G LULS #### Point of Care testing , MR lumbar spine wo conon MR lumbar spine wo con [facility] Main [place] [id number] MRI Report Signed Patient: Alton Barker MR#: [id number] 987 : 1940 Acct:[id number] Age/Sex: 81 / F ADM Date: 11/04/21 Loc: Room: [address] [place] [address] Type: ADM [...] Vijay Holden M.D.11/05/2021 12:14 PM Dictation Location: [place] [address] Transcribed By: [facility] 11/05/21 1214 Dictated By: Vijay Holden II, MD 11/05/21 1209 Signed By: 11/05/21 1214 [facility] Prothrombin Time INRon 11-05 INR Coag (PPP) [Relative time] 1.8 {INR} [facility] Comment on above: Result Comment: INR Therapeutic [...] heart valves: 3 - 4.5 PERFORMED BY: [facility] [place] [address] PATHOLOGIST INNOVATION ANALYST FLIP GERMAN M.D. Performed By: #### G LUCOLLIN #### Point of Care testing , PT Coag (PPP) [Time] 20.0 s High 9.0-12.9 [facility] Comment on above: Performed By: #### G LULS #### Point of Care testing , Albumin [Mass/volume] in Ser um or PlasmaOrdered By: Marvin Peter on 11-04-2021 Albumin [Mass/Vol] 3.4 g/dL 3.2-5.5 [facility] Automated erythrocytes count in urine sediment (number/area)Ordered By: Marvin Peter on 11-04-2021 RBC Auto (Urine sed) [#/Area] Innumerable [HPF] 0-4 [facility] Automated leukocytes count i n urine sediment (number/area)Ordered By: Marvin Peter on 11-04-2021 WBC Auto (Urine sed) [#/Area] 50-100 [HPF] 0-4 [facility] Automated urine hyaline cast s count (number/volume)Ordered By: Marvin Peter on 11-04-2021 Hyaline casts Auto (U) [#/Vol] Rare [LPF] 0-1 [facility] Bilirubin Test strip Ql (U)O rdered By: Marvin Peter on 11-04-2021 Bilirubin Ql (U) Negative Negative [facility] COVID CepheidOrdered By: Artie Peter on 11-04-2021 SARS-CoV-2 (COVID-19) Ab IA Ql Negative Negative [facility] Comment on above: This is a duplicate Cepheid Xpert Xpress CoV-2/Flu/RSV Plus RNA by RT-PCR result to be used for statistical tracking purpose only. SARS-CoV-2 (COVID-19) RNA PIPE+probe Ql (Unsp spec) [facility] COVID-19 / Flu A/B / RSV [...] or Cepheid Disclaimer revoked sooner. PERFORMED BY: [facility] [place] [address] PATHOLOGIST INNOVATION ANALYST FLIP GERMAN M.D. [facility] Comment on above: Performed By: #### G [...] developed and its performance characteristic determined by [employer] and validated at [facility]. This test has not been FDA [...] for SARS Antigen by [facility] PERFORMED BY: [facility] [address] [place] [address] PATHOLOGIST INNOVATION ANALYST FLIP GERMAN M.D. Normal [facility] Comment on above: Performed By: #### G LULS #### Point of Care testing , COVID-19 SOFIAOrdered By: Sina Peter on 11-04-2021 SARS-CoV+SARS-CoV-2 (COVID-19) Ag IA.rapid Ql (Resp) Negative Negative [facility] Comment on above: This is a duplicate Evita SARS Antigen (LAMONT) result to be used for statistical tracking purpose only. CT cervical spine wo conon 0 11-04-2021 CT cervical spine wo con [facility] [place] [address] CT Scan Report Signed Patient: Alton Barker MR#: [id number] 987 : 1940 Acct:[id number] Age/Sex: 81 / F ADM Date: 11/04/21 Loc: ER Room: Type: [facility] ER Attending Dr: Copies to: Marvin Peter [...] Baltazar Saucedo M.D.11/04/2021 5:55 PM Dictation Location: [place] [address] Transcribed By: [facility] 11/04/211754 Dictated By: Baltazar Saucedo DO 11/04/211752 Signed By: 11/04/211754 [facility] CT head/brain wo conon 11-04 CT head/brain wo con [facility] Main [address] [address] [address] Scan Report Signed Patient: Alton Barker MR#: [id number] 987 : 1940 Acct:[id number] Age/Sex: 81 / F ADM Date: 11/04/21 Loc: ER Room: Type: [facility] ER Attending Dr: Copies to: Marvin Peter [...] Baltazar Saucedo M.D.11/04/2021 5:52 PM Dictation Location: [place] [address] Transcribed By: [facility] 11/04/211751 Dictated By: Baltazar Saucedo DO 11/04/211747 Signed By: 11/04/211751 [facility] CT lumbar spine wo [facility] CT lumbar spine wo [facility] Main [place] [address] [place] [address] CT Scan Report Signed Patient: Alton Barker MR#: [id number] 987 : 1940 Acct:[id number] Age/Sex: 81 / F ADM Date: 11/04/21 Loc: ER Room: Type: [facility] ER Attending Dr: Copies to: Marvin Peter [...] Baltazar Saucedo M.D.11/04/2021 6:06 PM Dictation Location: [place] [address] Transcribed By: [facility] 11/04/211805 Dictated By: Baltazar Saucedo DO 11/04/211800 Signed By: 11/04/211805 [facility] CT thoracic spine wo conon 0 11-04-2021 CT thoracic spine wo con [facility] [place] [address] CT Scan Report Signed Patient: Alton Barker MR#: [id number] 987 : 1940 Acct:[id number] Age/Sex: 81 / F ADM Date: 11/04/21 Loc: ER Room: Type: [facility] ER Attending Dr: Copies to: Marvin Peter [...] Baltazar Saucedo M.D.11/04/2021 6:00 PM Dictation Location: [place] [address] Transcribed By: [facility] 11/04/21 1800 Dictated By: Baltazar Saucedo DO 11/04/21 1758 Signed By: 11/04/21 1800 Normal [facility] Casts typing in urine sedime nt by light microscopyOrdered By: Marvin Peter on 11-04-2021 Casts LM Nom (Urine sed) None seen [LPF] None Seen [facility] Cepheid COVID PCR Negativeon 11-04-2021 SARS-CoV-2 (COVID-19) RNA PIPE+probe Ql (Unsp spec) Negative Normal Negative [facility] Comment on above: Result Comment: This is a duplicate Cepheid Xpert Xpress CoV-2/Flu/RSV Plus RNA by RT-PCR result to be used for statistical tracking purpose only. PERFORMED BY: [facility] [address] [place] [address] PATHOLOGIST INNOVATION ANALYST FLIP GERMAN M.D. Performed By: #### G LULS #### Point of Care testing , Color Auto (U)Ordered By: Sina Peter on 11-04-2021 Color (U) Yellow Yellow [facility] Complete Blood Count Auto Di ffon 11-04-2021 Basophils (Bld) [#/Vol] 0.0 10*3/uL Normal 0.0-0.2 [facility] Comment on above: Result Comment: PERF ORMED BY: [facility] [address] [place] [address] PATHOLOGIST INNOVATION ANALYST FLPI GERMAN M.D. Performed By: #### C MP, CBC ####[facility] [id number] Basophils/100 WBC (Bld) 0.6 % Normal . [facility] Comment on above: Performed By: #### C MP, CBC ####[address] Eosinophils (Bld) [#/Vol] 0.1 10*3/uL Normal 0.0-0.45 [facility] Comment on above: Performed By: #### C MP, CBC ####[address] Eosinophils/100 WBC (Bld) 1.7 % Normal . [facility] Comment on above: Performed By: #### C MP, CBC ####[address] Erythrocyte distribution width (RBC) [Ratio] 16.3 % High 11.9-15.3 [facility] Comment on above: Performed By: #### C MP, CBC ####[address] Hematocrit (Bld) [Volume fraction] 39.2 % Normal 34.0-46.4 [facility] Comment on above: Performed By: #### C MP, CBC ####[address] Hemoglobin (Bld) [Mass/Vol] 12.8 g/dL Normal 11.8-15.4 [facility] Comment on above: Performed By: #### C MP, CBC ####[address] Lymphocytes (Bld) [#/Vol] 1.6 10*3/uL Normal 1.00-4.8 [facility] Comment on above: Performed By: #### C MP, CBC ####[address] Lymphocytes/100 WBC (Bld) 20.3 % Normal . [facility] Comment on above: Performed By: #### C MP, CBC ####[address] MCH (RBC) [Entitic mass] 29.2 pg Normal 24.7-34.3 [facility] Comment on above: Performed By: #### C MP, CBC ####[address] MCV (RBC) [Entitic vol] 89.5 fL Normal 80-100 [facility] Comment on above: Performed By: #### C MP, CBC ####[address] Mean Corpuscular HGB Conc 32.6 g/dL Normal 32.0-35.0 [facility] Comment on above: Performed By: #### C MP, CBC ####[address] Monocytes (Bld) [#/Vol] 0.8 10*3/uL Normal 0.0-0.8 [facility] Comment on above: Performed By: #### C MP, CBC ####[address] Monocytes/100 WBC (Bld) 9.7 % Normal . [facility] Comment on above: Performed By: #### C MP, CBC ####[address] Neutrophils (Bld) [#/Vol] 5.3 10*3/uL Normal 1.8-7.7 [facility] Comment on above: Performed By: #### C MP, CBC ####[address] Neutrophils/100 WBC (Bld) 67.7 % Normal . [facility] Comment on above: Performed By: #### C MP, CBC ####[address] Nucleated RBC/100 WBC (Bld) [Ratio] 0.1 % Normal 0-0.5 [facility] Comment on above: Performed By: #### C MP, CBC ####[address] Platelet mean volume (Bld) [Entitic vol] 7.9 fL Normal 6.3-10.7 [facility] Comment on above: Performed By: #### C MP, CBC ####[address] [address] [facility] Platelets (Bld) [#/Vol] 318 10*3/uL Normal 150-450 [facility] Comment on above: Performed By: #### C MP, CBC ####[place] [id number] [facility] RBC (Bld) [#/Vol] 4.38 10*6/uL Normal 3.60-5.00 [facility] Comment on above: Performed By: #### C MP, CBC ####[place] [id number] [facility] WBC (Bld) [#/Vol] 7.9 10*3/uL Normal 4.5-11.0 [facility] Comment on above: Performed By: #### C MP, CBC ####[place] [id number] [facility] Comprehensive Metabolic Pane loco 11-04-2021 Albumin [Mass/Vol] 3.4 g/dL Normal 3.2-5.5 [facility] Comment on above: Performed By: #### C MP, CBC ####[place] [id number] [facility] Albumin/Globulin [Mass ratio] 0.9 {ratio} Normal [facility] Comment on above: Performed By: #### C MP, CBC ####[place] [id number] [facility] ALP [Catalytic activity/Vol] 80 U/L Normal 32-92 [facility] Comment on above: Performed By: #### C MP, CBC ####[address] [address] [facility] ALT [Catalytic activity/Vol] 7 U/L Low 10-60 [facility] Comment on above: Performed By: #### C MP, CBC ####[address] [place] [address] [facility] AST [Catalytic activity/Vol] 16 U/L Normal 10-42 [facility] Comment on above: Performed By: #### C MP, CBC ####[place] [id number] [facility] Bilirubin [Mass/Vol] 1.2 mg/dL Normal 0.3-1.2 [facility] Comment on above: Performed By: #### C MP, CBC ####[address] Calcium [Mass/Vol] 9.7 mg/dL Normal 8.2-10.2 [facility] Comment on above: Performed By: #### C MP, CBC ####[address] Chloride [Moles/Vol] 95 mmol/L Normal 95-114 [facility] Comment on above: Performed By: #### C MP, CBC ####[address] CO2 [Moles/Vol] 30.4 mmol/L High 22.0-30.0 [facility] Comment on above: Performed By: #### C MP, CBC ####[place] [id number] [facility] Creatinine [Mass/Vol] 0.61 mg/dL Normal 0.44-1.03 [facility] Comment on above: Performed By: #### C MP, CBC ####[place] [id number] [facility] Creatinine Clr Calc Pharmacy 64.44 [facility] Comment on above: Result Comment: PERF ORMED BY: [facility] [address] [place] [address] PATHOLOGIST INNOVATION ANALYST FLIP GERMAN M.D. Performed By: #### C MP, CBC ####[place] [id number] [facility] Estimated GFR ( Trista > 60 Normal [facility] Comment on above: Result Comment: GFR estimated reference range: According to KDOQI guidelines, <60 ml/min/1.73m2 is sufficient to diagnose a patient with chronic kidney disease. Performed By: #### C MP, CBC ####[address] [address] [facility] Estimated GFR (Non- Am > 60 [facility] Comment on above: Performed By: #### C MP, CBC ####[address] [address] [facility] Globulin (S) [Mass/Vol] 3.7 g/dL [facility] Comment on above: Performed By: #### C MP, CBC ####[address] [address] [facility] Glucose [Mass/Vol] 131 mg/dL High 70-100 [facility] Comment on above: Result Comment: [place] Glucose Reference Range is dependent on time and content of last meal. Glucose of more than 200 mg/dL in a nonstressed, ambulatory subject supports the diagnosis of Diabetes Mellitus. ADA recommended reference range Performed By: #### C MP, CBC ####[address] [address] [facility] Potassium [Moles/Vol] 3.8 mmol/L Normal 3.5-5.1 [facility] Comment on above: Performed By: #### C MP, CBC ####[address] [address] [facility] Protein [Mass/Vol] 7.1 g/dL Normal 6.1-7.9 [facility] Comment on above: Performed By: #### C MP, CBC ####[address] [address] [facility] Sodium [Moles/Vol] 137 mmol/L Normal 136-146 [facility] Comment on above: Performed By: #### C MP, CBC ####[address] [address] [facility] Urea nitrogen [Mass/Vol] 14 mg/dL Normal 9-23 [facility] Comment on above: Performed By: #### C MP, CBC ####[place] [address] [place] [address] [place] Dipstick and Microscopicon 0 11-04-2021 Appearance (U) Cloudy Critically abnormal Clear [facility] Comment on above: Order Comment: Name Collection Type:: Voided Performed By: #### G LULS #### Point of Care testing , Bacteria,Urine 4+ High None Seen [facility] Comment on above: Order Comment: Name Collection Type:: Voided Performed By: #### G LULS #### Point of Care testing , Bilirubin,Urine Negative Normal Negative [facility] Comment on above: Order Comment: Name Collection Type:: Voided Performed By: #### G LULS #### Point of Care testing , Color (U) Yellow Normal Yellow [facility] Comment on above: Order Comment: Name Collection Type:: Voided Performed By: #### G LULS #### Point of Care testing , Glucose Ql (U) Normal Normal Normal [facility] Comment on above: Order Comment: Name Collection Type:: Voided Performed By: #### G LULS #### Point of Care testing , Hyaline Casts,Urine Rare Normal 0-1 [facility] Comment on above: Order Comment: Name Collection Type:: Voided Performed By: #### G LULS #### Point of Care testing , Ketones Ql (U) 1+ High Negative [facility] Comment on above: Order Comment: Name Collection Type:: Voided Performed By: #### G LULS #### Point of Care testing , Leukocyte esterase Test strip Ql (U) 3+ High Negative [facility] Comment on above: Order Comment: Name Collection Type:: Voided Performed By: #### G LULS #### Point of Care testing , Nitrite,Urine Positive High Negative [facility] Comment on above: Order Comment: Name Collection Type:: Voided Performed By: #### G LULS #### Point of Care testing , Occult Blood,Urine 3+ High Negative [facility] Comment on above: Order Comment: Name Collection Type:: Voided Result Comment: PERF ORMED BY: [facility] [address] [place] [address] PATHOLOGIST INNOVATION ANALYST FLIP GERMAN M.D. Performed By: #### G LULS #### Point of Care testing , Other Casts,Urine None Seen Normal None Seen [facility] Comment on above: Order Comment: Name Collection Type:: Voided Result Comment: PERF ORMED BY: [facility] [place] [address] PATHOLOGIST INNOVATION ANALYST FLIP GERMAN M.D. Performed By: #### G LULS #### Point of Care testing , pH (U) 5.5 [pH] Normal 5.0-9.0 [facility] Comment on above: Order Comment: Name Collection Type:: Voided Performed By: #### G LULS #### Point of Care testing , Protein (U) [Mass/Vol] 30 mg/dL High Negative [facility] Comment on above: Order Comment: Name Collection Type:: Voided Performed By: #### G LULS #### Point of Care testing , RBC,Urine Innumerable High 04 [facility] Comment on above: Order Comment: Name Collection Type:: Voided Performed By: #### G LULS #### Point of Care testing , Specificy [place],Urine 1.029 Normal 1.001-1.03 0 [facility] Comment on above: Order Comment: Name Collection Type:: Voided Performed By: #### G LULS #### Point of Care testing , Squamous Epithelial Cell,Urine 5-9 High 0-2 [facility] Comment on above: Order Comment: Name Collection Type:: Voided Performed By: #### G LULS #### Point of Care testing , Urobilinogen,Urine Normal Normal Normal [facility] Comment on above: Order Comment: Name Collection Type:: Voided Performed By: #### G LULS #### Point of Care testing , WBC,Urine 50-100 High 0-4 [facility] Comment on above: Order Comment: Name Collection Type:: Voided Performed By: #### G LULS #### Point of Care testing , Globulin Calc (S) [Mass/Vol] Ordered By: Marvin Peter on 11-04-2021 Globulin (S) [Mass/Vol] 3.7 g/dL [facility] Ketones Auto test strip (U) [Mass/Vol]Ordered By: Marvin Peter on 11-04-2021 Ketones (U) [Mass/Vol] 1+ Negative [facility] Nitrite Test strip Ql (U)Ord ered By: Marvin Peter on 11-04-2021 Nitrite Ql (U) Positive Negative [facility] No Panel InformationOrdered By: Enrrique Mota on 11-04-2021 25-Hydroxy Vitamin D Total 71.4 ng/mL 30-100 [facility] Comment on above: VITAMIN D STATUS [...] 11-04-2021 Protein (U) [Mass/Vol] 30 mg/dL Negative [facility] Protein [Mass/volume] in Ser um or PlasmaOrdered By: Marvin Peter on 11-04-2021 Protein [Mass/Vol] 7.1 g/dL 6.1-7.9 [facility] Prothrombin Time INRon 11-04 INR Coag (PPP) [Relative time] 8.2 {INR} Off scale high [facility] Comment on above: Result Comment: Crit [...] heart valves: 3 - 4.5 PERFORMED BY: [address] [place] [address] PATHOLOGIST INNOVATION ANALYST FLIP GERMAN M.D. Performed By: #### G LULS #### Point of Care testing , PT Coag (PPP) [Time] 96.2 s High 9.0-12.9 [facility] Comment on above: Performed By: #### G LULS #### Point of Care testing , Serum or plasma alanine engel otransferase measurement without P-5'-P (enzymatic activiOrdered By: Marvin Peter on 11-04-2021 ALT No additional P-5'-P [Catalytic activity/Vol] 7 U/L 10-60 [facility] Serum or plasma albumin/glob ulin mass ratioOrdered By: Marvin Peter on 11-04-2021 Albumin/Globulin [Mass ratio] 0.9 {ratio} [facility] Serum or plasma alkaline bocuhra sphatase measurement (enzymatic activity/volume)Ordered By: Marvin Peter on 11-04-2021 ALP [Catalytic activity/Vol] 80 U/L 32-92 [facility] Serum or plasma aspartate am inotransferase measurement (enzymatic activity/volume)Ordered By: Marvin Peter on 11-04-2021 AST [Catalytic activity/Vol] 16 U/L 10-42 [facility] Serum or plasma total biliru bin measurement (mass/volume)Ordered By: Marvin Peter on 11-04-2021 Bilirubin [Mass/Vol] 1.2 mg/dL 0.3-1.2 [facility] Evita Ag Negativeon 11-05-19 22 Evita Ag Negative Negative Normal Negative [facility] Comment on above: Result Comment: This is a duplicate Evita SARS Antigen (LAMONT) result to be used for statistical tracking purpose only. PERFORMED BY: [facility] [address] [place] [address] PATHOLOGIST INNOVATION ANALYST FLIP GERMAN M.D. Performed By: #### G IAN #### Point of Care testing , Specific gravity Auto test s trip (U) [Rel density]Ordered By: Marvin Peter on 11-04-2021 Specific gravity (U) [Rel density] 1.029 1.001-1.03 0 [facility] Squamous epithelial cells de tection in urine sediment by light microscopyOrdered By: Marvin Peter on 11-04-2021 Epithelial cells.squamous LM Ql (Urine sed) 5-9 [HPF] 0-2 [facility] TSH DL <= 0.005 mIU/L QnOrde red By: Enrrique Mota on 11-04-2021 TSH Qn 2.09 m[IU]/L 0.45-5.33 [facility] Thyroid Stimulating Hormoneo n 11-04-2021 TSH Qn 2.09 m[IU]/L Normal 0.45-5.33 [facility] Comment on above: Order Comment: Bobby nt addon Result Comment: PERF ORMED BY: [facility] [address] [place] [address] PATHOLOGIST INNOVATION ANALYST FLIP GERMAN M.D. Performed By: #### G IAN #### Point of Care testing , Urine Cultureon 11-04-2021 Bacteria identified Cx Nom (U) ORGANISM: Escherichia coli (O:ESCCOL) [place] Count >100,000 Aerobic JIMMY Charge (NUC86) SUSCEPTIBILITY [...] RESISTANT TO ALL B-LACTAM DRUGS. PERFORMED BY: [place] [address] [place] [address] PATHOLOGIST INNOVATION ANALYST FLIP GERMAN M.D. [facility] Comment on above: Performed By: #### G LULS #### Point of Care testing , Urine bacteria detection by automated methodOrdered By: Marvin Peter on 11-04-2021 Bacteria Auto Ql (U) 4+ None Seen [facility] Urine clarity by refractomet ry automatedOrdered By: Marvin Peter on 11-04-2021 Clarity Refractometry automated (U) Cloudy Clear [facility] Urine glucose measurement by automated test strip (mass/volume)Ordered By: Marvin Peter on 11-04-2021 Glucose Auto test strip (U) [Mass/Vol] Normal mg/dL Normal [facility] Urine hemoglobin detection b y automated test stripOrdered By: Marvin Peter on 11-04-2021 Hemoglobin Auto test strip Ql (U) 3+ Negative [facility] Urine leukocyte esterase det ection by automated test stripOrdered By: Marvin Peter on 11-04-2021 Leukocyte esterase Auto test strip Ql (U) 3+ Negative [facility] Urobilinogen Auto test strip (U) [Mass/Vol]Ordered By: Marvin Peter on 11-04-2021 Urobilinogen (U) [Mass/Vol] Normal mg/dL Normal [facility] Vitamin D 25 Hydroxy Totalon 11-04-2021 Vitamin D 25 Hydroxy Total 71.4 ng/mL Normal 30-100 [facility] Comment on above: Order Comment: Comme nt addon Result Comment: FREDERIC MIN D STATUS 25(OH)VITAMIN D RANGE (ng/mL) Deficient <20 Insufficient 20 to <30 Sufficient 30 to 100 Reference: Earl MF,Ken NC, Yoandy PEDERSEN, et al. Evaluation,treatment, and prevention of vitamin D deficiency; an Endocrine Society clinical practice guideline. JCEM. 2010; 96(7):1911-30. PERFORMED BY: [place] [address] PATHOLOGIST INNOVATION ANALYST FLIP GERMAN M.D. Performed By: #### V [id number] ####[facility] [id number] [place] [id number] [facility] pH Auto test strip (U)Ordere d By: Marvin Peter on 11-04-2021 pH (U) 5.5 [pH] 5.0-9.0 [facility] Prothrombin Time INRon 10-22 INR Coag (PPP) [Relative time] 4.5 {INR} [facility] [employer] Other Prothrombin Time INR [facility] [employer] Other CT head/brain wo conon 10-20 CT head/brain wo con [facility] Main [place] [address] [place] [address] CT Scan Report Signed Patient: Alton Barker MR#: [id number] 987 : 1940 Acct:[id number] Age/Sex: 81 / F ADM Date: 10/19/21 Loc: ER Room: Type: [facility] ER Attending Dr: Copies to: [...] Vijay Holden M.D.10/20/2021 8:09 AM Dictation Location: [place] [address] Transcribed By: [facility] 10/20/21 08 Dictated By: Vijay Holden II, MD 10/20/21805 Signed By: 10/20/21 08 Normal [facility] XR lumbar spine 2-3V*on XR lumbar spine 2-3V* [facility] [address] [place] [address] [place] [address] XRay Report Signed Patient: Alton Barker MR#: [id number] 987 : 1940 Acct:[id number] Age/Sex: 81 / F ADM Date: 10/19/21 Loc: ER Room: Type: [facility] ER Attending Dr: Copies to: [...] Vijay Holden M.D.10/20/2021 8:11 AM Dictation Location: [place] [address] Transcribed By: [facility] 10/20/21810 Dictated By: Vijay Holden II, MD 10/20/21808 Signed By: 10/20/21810 Normal [facility] Urine culture routineOrdered By: Sumanth Lowe on 09-30-2021 Bacteria identified Cx Nom (U) Escherichia coli [facility] Prothrombin Time INRon 09-29 INR Coag (PPP) [Relative time] 3.3 {INR} [facility] [employer] Other Prothrombin Time INR [facility] [employer] Other Automated erythrocytes count in urine sediment (number/area)Ordered By: Sumanth Lowe on 09-28-2021 RBC Auto (Urine sed) [#/Area] 10-19 [HPF] 0-4 [facility] Automated leukocytes count i n urine sediment (number/area)Ordered By: Sumanth Lowe on 09-28-2021 WBC Auto (Urine sed) [#/Area] 20-49 [HPF] 0-4 [facility] Basophils Auto (Bld) [#/Vol] Ordered By: Sumanth Lowe on 09-28-2021 Basophils (Bld) [#/Vol] 0.0 10*3/uL 0.0-0.2 [facility] Basophils/100 WBC Auto (Bld) Ordered By: Sumanth Lowe on 09-28-2021 Basophils/100 WBC (Bld) 0.4 % . [facility] Bilirubin Test strip Ql (U)O rdered By: Sumanth Lowe on 09-28-2021 Bilirubin Ql (U) Negative Negative [facility] Blood hemoglobin measurement (mass/volume)Ordered By: Sumanth Lowe on 09-28-2021 Hemoglobin (Bld) [Mass/Vol] 12.3 g/dL 11.8-15.4 [facility] Blood leukocytes automated c ount (number/volume)Ordered By: Sumanth Lowe on 09-28-2021 WBC (Bld) [#/Vol] 5.1 10*3/uL 4.5-11.0 [facility] Body fluid albumin measureme nt (mass/volume)Ordered By: Sumanth Lowe on 09-28-2021 Albumin (Body fld) [Mass/Vol] 3.3 g/dL 3.2-5.5 [facility] Color Auto (U)Ordered By: Giuseppe Lowe on 09-28-2021 Color (U) Yellow Yellow [facility] Complete Blood Count Auto Di ffon 09-28-2021 Basophils (Bld) [#/Vol] 0.0 10*3/uL Normal 0.0-0.2 [facility] Comment on above: Result Comment: PERF ORMED BY: [facility] [address] [place] [address] PATHOLOGIST INNOVATION ANALYST FLIP GERMAN M.D. Performed By: #### C CHEN, CMP ####[address] Basophils/100 WBC (Bld) 0.4 % Normal . [facility] Comment on above: Performed By: #### C CHEN, CMP ####[address] Eosinophils (Bld) [#/Vol] 0.0 10*3/uL Normal 0.0-0.45 [facility] Comment on above: Performed By: #### C CHEN, CMP ####[address] Eosinophils/100 WBC (Bld) 0.4 % Normal . [facility] Comment on above: Performed By: #### C BC, CMP ####[address] Erythrocyte distribution width (RBC) [Ratio] 15.9 % High 11.9-15.3 [facility] Comment on above: Performed By: #### C BC, CMP ####[address] Hematocrit (Bld) [Volume fraction] 37.5 % Normal 34.0-46.4 [facility] Comment on above: Performed By: #### C BC, CMP ####[address] Hemoglobin (Bld) [Mass/Vol] 12.3 g/dL Normal 11.8-15.4 [facility] Comment on above: Performed By: #### C BC, CMP ####[address] Lymphocytes (Bld) [#/Vol] 0.8 10*3/uL Low 1.00-4.8 [facility] Comment on above: Performed By: #### C BC, CMP ####[address] Lymphocytes/100 WBC (Bld) 16.2 % Normal . [facility] Comment on above: Performed By: #### C BC, CMP ####[address] MCH (RBC) [Entitic mass] 29.5 pg Normal 24.7-34.3 [facility] Comment on above: Performed By: #### C BC, CMP ####[address] MCV (RBC) [Entitic vol] 90.3 fL Normal 80-100 [facility] Comment on above: Performed By: #### C BC, CMP ####[address] Mean Corpuscular HGB Conc 32.7 g/dL Normal 32.0-35.0 [facility] Comment on above: Performed By: #### C BC, CMP ####[address] Monocytes (Bld) [#/Vol] 0.7 10*3/uL Normal 0.0-0.8 [facility] Comment on above: Performed By: #### C CHEN, CMP ####[address] [address] [facility] Monocytes/100 WBC (Bld) 13.9 % Normal . [facility] Comment on above: Performed By: #### C BC, CMP ####[place] [id number] [facility] Neutrophils (Bld) [#/Vol] 3.5 10*3/uL Normal 1.8-7.7 [facility] Comment on above: Performed By: #### C CHEN, CMP ####[place] [id number] [facility] Neutrophils/100 WBC (Bld) 69.1 % Normal . [facility] Comment on above: Performed By: #### C CHEN, CMP ####[place] [id number] [facility] Nucleated RBC/100 WBC (Bld) [Ratio] 0.0 % Normal 0-0.5 [facility] Comment on above: Performed By: #### C CHEN, CMP ####[place] [id number] [facility] Platelet mean volume (Bld) [Entitic vol] 8.6 fL Normal 6.3-10.7 [facility] Comment on above: Performed By: #### C CHEN, CMP ####[address] [address] [facility] Platelets (Bld) [#/Vol] 154 10*3/uL Normal 150-450 [facility] Comment on above: Performed By: #### C CHEN, CMP ####[address] [address] [facility] RBC (Bld) [#/Vol] 4.16 10*6/uL Normal 3.60-5.00 [facility] Comment on above: Performed By: #### C BC, CMP ####[place] [id number] [place] WBC (Bld) [#/Vol] 5.1 10*3/uL Normal 4.5-11.0 [facility] Comment on above: Performed By: #### C BC, CMP ####[address] [address] [facility] Comprehensive Metabolic Pane loco 09-28-2021 Albumin [Mass/Vol] 3.3 g/dL Normal 3.2-5.5 [facility] Comment on above: Performed By: #### C BC, CMP ####[place] [id number] [facility] Albumin/Globulin [Mass ratio] 0.9 {ratio} Normal [facility] Comment on above: Performed By: #### C BC, CMP ####[place] [id number] [facility] ALP [Catalytic activity/Vol] 51 U/L Normal 32-92 [facility] Comment on above: Performed By: #### C BC, CMP ####[place] [id number] [facility] ALT [Catalytic activity/Vol] 7 U/L Low 10-60 [facility] Comment on above: Performed By: #### C BC, CMP ####[place] [id number] [facility] AST [Catalytic activity/Vol] 20 U/L Normal 10-42 [facility] Comment on above: Performed By: #### C BC, CMP ####[place] [id number] [facility] Bilirubin [Mass/Vol] 1.0 mg/dL Normal 0.3-1.2 [facility] Comment on above: Performed By: #### C BC, CMP ####[place] [id number] [facility] Calcium [Mass/Vol] 8.9 mg/dL Normal 8.2-10.2 [facility] Comment on above: Performed By: #### C BC, CMP ####[place] [id number] [place] Chloride [Moles/Vol] 95 mmol/L Normal 95-114 [facility] Comment on above: Performed By: #### C BC, CMP ####[place] [address] [place] [address] [facility] CO2 [Moles/Vol] 29.5 mmol/L Normal 22.0-30.0 [facility] Comment on above: Performed By: #### C BC, CMP ####[place] [address] [place] [address] [facility] Creatinine [Mass/Vol] 0.67 mg/dL Normal 0.44-1.03 [facility] Comment on above: Performed By: #### C BC, CMP ####[place] [address] [place] [address] [facility] Creatinine Clr Calc Pharmacy 66.85 [facility] Comment on above: Result Comment: PERF ORMED BY: [facility] [address] [place] [id number] PATHOLOGIST INNOVATION ANALYST FLIP GERMAN M.D. Performed By: #### C BC, CMP ####[address] [address] [facility] Estimated GFR ( Trista > 60 [facility] Comment on above: Result Comment: GFR estimated reference range: According to KDOQI guidelines, <60 ml/min/1.73m2 is sufficient to diagnose a patient with chronic kidney disease. Performed By: #### C BC, CMP ####[place] [address] [place] [address] [facility] Estimated GFR (Non- Am > 60 [facility] Comment on above: Performed By: #### C BC, CMP ####[address] [address] [facility] Globulin (S) [Mass/Vol] 3.6 g/dL [facility] Comment on above: Performed By: #### C BC, CMP ####[place] [address] [place] [address] [facility] Glucose [Mass/Vol] 146 mg/dL High 70-100 [facility] Comment on above: Result Comment: [place] Glucose Reference Range is dependent on time and content of last meal. Glucose of more than 200 mg/dL in a nonstressed, ambulatory subject supports the diagnosis of Diabetes Mellitus. ADA recommended reference range Performed By: #### C BC, CMP ####[facility] [place] [address] [facility] Potassium [Moles/Vol] 3.5 mmol/L Normal 3.5-5.1 [facility] Comment on above: Performed By: #### C BC, CMP ####[facility] [place] [address] [facility] Protein [Mass/Vol] 6.9 g/dL Normal 6.1-7.9 [facility] Comment on above: Performed By: #### C BC, CMP ####[place] [address] [place] [address] [facility] Sodium [Moles/Vol] 136 mmol/L Normal 136-146 [facility] Comment on above: Performed By: #### C BC, CMP ####[facility] [place] [address] [facility] Urea nitrogen [Mass/Vol] 7 mg/dL Low 9-23 [facility] Comment on above: Performed By: #### C BC, CMP ####[facility] [place] [address] [facility] Creatinine and Glomerular fi ltration rate.predicted panel (S/P/Bld)Ordered By: Sumanth Lowe on 09-28-2021 Creatinine [Mass/Vol] 0.67 mg/dL 0.44-1.03 [facility] Dipstick and Microscopicon 0 09-28-2021 Appearance (U) Cloudy Critically abnormal Clear [facility] Comment on above: Order Comment: Name Collection Type:: Clean-Voided Midstream Performed By: #### G LULS #### Point of Care testing , Bacteria,Urine 3+ High None Seen [facility] Comment on above: Order Comment: Name Collection Type:: Clean-Voided Midstream Performed By: #### G LULS #### Point of Care testing , Bilirubin,Urine Negative Normal Negative [facility] Comment on above: Order Comment: Name Collection Type:: Clean-Voided Midstream Performed By: #### G LULS #### Point of Care testing , Color (U) Yellow Normal Yellow [facility] Comment on above: Order Comment: Name Collection Type:: Clean-Voided Midstream Performed By: #### G LULS #### Point of Care testing , Glucose Ql (U) Normal Normal Normal [facility] Comment on above: Order Comment: Name Collection Type:: Clean-Voided Midstream Performed By: #### G LULS #### Point of Care testing , Hyaline Casts,Urine 0-8 Normal 0-8 [facility] Comment on above: Order Comment: Name Collection Type:: Clean-Voided Midstream Performed By: #### G LULS #### Point of Care testing , Ketones Ql (U) 2+ High Negative [facility] Comment on above: Order Comment: Name Collection Type:: Clean-Voided Midstream Performed By: #### G LULS #### Point of Care testing , Leukocyte esterase Test strip Ql (U) 2+ High Negative [facility] Comment on above: Order Comment: Name Collection Type:: Clean-Voided Midstream Performed By: #### G LULS #### Point of Care testing , Nitrite,Urine Positive High Negative [facility] Comment on above: Order Comment: Name Collection Type:: Clean-Voided Midstream Performed By: #### G LULS #### Point of Care testing , Occult Blood,Urine 2+ High Negative [facility] Comment on above: Order Comment: Name Collection Type:: Clean-Voided Midstream Result Comment: PERF ORMED BY: [facility] [address] [place] [address] PATHOLOGIST INNOVATION ANALYST FLIP GERMAN M.D. Performed By: #### G LULS #### Point of Care testing , pH (U) 6.5 [pH] Normal 5.0-9.0 [facility] Comment on above: Order Comment: Name Collection Type:: Clean-Voided Midstream Performed By: #### G LULS #### Point of Care testing , Protein,Urine Negative Normal Negative [facility] Comment on above: Order Comment: Name Collection Type:: Clean-Voided Midstream Performed By: #### G LULS #### Point of Care testing , RBC,Urine 10-19 High 0-4 [facility] Comment on above: Order Comment: Name Collection Type:: Clean-Voided Midstream Performed By: #### G LULS #### Point of Care testing , Specificy [place],Urine 1.013 Normal 1.001-1.03 0 [facility] Comment on above: Order Comment: Name Collection Type:: Clean-Voided Midstream Performed By: #### G LULS #### Point of Care testing , Squamous Epithelial Cell,Urine None Seen Normal 0-2 [facility] Comment on above: Order Comment: Name Collection Type:: Clean-Voided Midstream Performed By: #### G LULS #### Point of Care testing , Urobilinogen,Urine Normal Normal Normal [facility] Comment on above: Order Comment: Name Collection Type:: Clean-Voided Midstream Performed By: #### G LULS #### Point of Care testing , WBC,Urine 20-49 High 0-4 [facility] Comment on above: Order Comment: Name Collection Type:: Clean-Voided Midstream Performed By: #### G LULS #### Point of Care testing , Yeast,Urine None Seen Normal None Seen [facility] Comment on above: Order Comment: Name Collection Type:: Clean-Voided Midstream Result Comment: PERF ORMED BY: [place] [address] PATHOLOGIST INNOVATION ANALYST FLIP GERMAN M.D. Performed By: #### G LULS #### Point of Care testing , ECG 12 lead ECGon 09-28-2021 ECG 12 lead ECG [facility] [place] [address] Electrocardiograph Report Signed Patient: Alton Barker MR#: [id number] 987 : 1940 Acct:[id number] Age/Sex: 81 / F ADM Date: 09/27/21 Loc: ER Room: Type: [facility] ER Attending Dr: Ordering Provider: [...] Signed By Sumanth Lowe DO 0601 Normal [facility] Eosinophils Auto (Bld) [#/Vo l]Ordered By: Sumanth Lowe on 09-28-2021 Eosinophils (Bld) [#/Vol] 0.0 10*3/uL 0.0-0.45 [facility] Eosinophils/100 WBC Auto (Bl d)Ordered By: Sumanth Lowe on 09-28-2021 Eosinophils/100 WBC (Bld) 0.4 % . [facility] Erythrocyte distribution wid th Auto (RBC) [Ratio]Ordered By: Sumanth Lowe on 09-28-2021 Erythrocyte distribution width (RBC) [Ratio] 15.9 % 11.9-15.3 [facility] Estimated glomerular filtrat ion rate (GFR) non- AmericanOrdered By: Sumanth Lowe on 09-28-2021 GFR/1.73 sq M.predicted among non-blacks MDRD (S/P/Bld) [Vol rate/Area] > 60 mL/Min [facility] Globulin Calc (S) [Mass/Vol] Ordered By: Sumanth Lowe on 09-28-2021 Globulin (S) [Mass/Vol] 3.6 g/dL [facility] Hematocrit Auto (Bld) [Volum e fraction]Ordered By: Sumanth Lowe on 09-28-2021 Hematocrit (Bld) [Volume fraction] 37.5 % 34.0-46.4 [facility] Ketones Auto test strip (U) [Mass/Vol]Ordered By: Sumanth Lowe on 09-28-2021 Ketones (U) [Mass/Vol] 2+ Negative [facility] Laboratory - Hematology and Cell countsOrdered By: Sumanth Lowe on 09-28-2021 Nucleated RBC/100 WBC (Bld) [Ratio] 0.0 % 0-0.5 [facility] Laboratory - UrinalysisOrder ed By: Sumanth Lowe on 09-28-2021 Hyaline casts LM Ql (Urine sed) 0-8 [LPF] 0-8 [facility] Lymphocytes Auto (Bld) [#/Vo l]Ordered By: Sumanth Lowe on 09-28-2021 Lymphocytes (Bld) [#/Vol] 0.8 10*3/uL 1.00-4.8 [facility] Lymphocytes/100 WBC Auto (Bl d)Ordered By: Sumanth Lowe on 09-28-2021 Lymphocytes/100 WBC (Bld) 16.2 % . [facility] MCH Auto (RBC) [Entitic mass ]Ordered By: Sumanth Lowe on 09-28-2021 MCH (RBC) [Entitic mass] 29.5 pg 24.7-34.3 [facility] MCHC Auto (RBC) [Mass/Vol]Or dered By: Sumanth Lowe on 09-28-2021 MCHC (RBC) [Mass/Vol] 32.7 g/dL 32.0-35.0 [facility] MCV Auto (RBC) [Entitic vol] Ordered By: Sumanth Lowe on 09-28-2021 MCV (RBC) [Entitic vol] 90.3 fL 80-100 [facility] Monocytes Auto (Bld) [#/Vol] Ordered By: Sumanth Lowe on 09-28-2021 Monocytes (Bld) [#/Vol] 0.7 10*3/uL 0.0-0.8 [facility] Monocytes/100 WBC Auto (Bld) Ordered By: Sumanth Lowe on 09-28-2021 Monocytes/100 WBC (Bld) 13.9 % . [facility] Neutrophils Auto (Bld) [#/Vo l]Ordered By: Sumanth Lowe on 09-28-2021 Neutrophils (Bld) [#/Vol] 3.5 10*3/uL 1.8-7.7 [facility] Neutrophils/100 WBC Auto (Bl d)Ordered By: Sumanth Lowe on 09-28-2021 Neutrophils/100 WBC (Bld) 69.1 % . [facility] Nitrite Test strip Ql (U)Ord ered By: Sumanth Lowe on 09-28-2021 Nitrite Ql (U) Positive Negative [facility] No Panel InformationOrdered By: Sumanth Lowe on 09-28-2021 Estimated GFR () > 60 mL/Min [facility] Comment on above: GFR estimated refere nce range: According to KDOQI guidelines, <60 ml/min/1.73m2 is sufficient to diagnose a patient with chronic kidney disease. Pharmacy Creatinine Clearance (Chem 66.85 [facility] Platelet mean volume Auto (B ld) [Entitic vol]Ordered By: Sumanth Lowe on 09-28-2021 Platelet mean volume (Bld) [Entitic vol] 8.6 fL 6.3-10.7 [facility] Platelets Auto (Bld) [#/Vol] Ordered By: Sumanth Lowe on 09-28-2021 Platelets (Bld) [#/Vol] 154 10*3/uL 150-450 [facility] Protein Auto test strip (U) [Mass/Vol]Ordered By: Sumanth Lowe on 09-28-2021 Protein (U) [Mass/Vol] Negative Negative [facility] Protein [Mass/volume] in Ser um or PlasmaOrdered By: Sumanth Lowe on 09-28-2021 Protein [Mass/Vol] 6.9 g/dL 6.1-7.9 [facility] RBC Auto (Bld) [#/Vol]Ordere d By: Sumanth Lowe on 09-28-2021 RBC (Bld) [#/Vol] 4.16 10*6/uL 3.60-5.00 [facility] Serum or plasma alanine engel otransferase measurement without P-5'-P (enzymatic activiOrdered By: Sumanth Lowe on 09-28-2021 ALT No additional P-5'-P [Catalytic activity/Vol] 7 U/L 10-60 [facility] Serum or plasma albumin/glob ulin mass ratioOrdered By: Sumanth Lowe on 09-28-2021 Albumin/Globulin [Mass ratio] 0.9 {ratio} [facility] Serum or plasma alkaline bouchra sphatase measurement (enzymatic activity/volume)Ordered By: Sumanth Lowe on 09-28-2021 ALP [Catalytic activity/Vol] 51 U/L 32-92 [facility] Serum or plasma aspartate am inotransferase measurement (enzymatic activity/volume)Ordered By: Sumanth Lowe on 09-28-2021 AST [Catalytic activity/Vol] 20 U/L 10-42 [facility] Serum or plasma calcium alondra urement (mass/volume)Ordered By: Sumanth Lowe on 09-28-2021 Calcium [Mass/Vol] 8.9 mg/dL 8.2-10.2 [facility] Serum or plasma chloride link surement (moles/volume)Ordered By: Sumanth Lowe on 09-28-2021 Chloride [Moles/Vol] 95 mmol/L 95-114 [facility] Serum or plasma glucose alondra urement (mass/volume)Ordered By: Sumanth Lowe on 09-28-2021 Glucose [Mass/Vol] 146 mg/dL 70-100 [facility] Comment on above: ADA recommended refe rence range Random Glucose Reference Range is dependent on time and content of last meal. Glucose of more than 200 mg/dL in a nonstressed, ambulatory subject supports the diagnosis of Diabetes Mellitus. Serum or plasma potassium me asurement (moles/volume)Ordered By: Sumanth Lowe on 09-28-2021 Potassium [Moles/Vol] 3.5 mmol/L 3.5-5.1 [facility] Serum or plasma sodium measu rement (moles/volume)Ordered By: Sumanth Lowe on 09-28-2021 Sodium [Moles/Vol] 136 mmol/L 136-146 [facility] Serum or plasma total biliru bin measurement (mass/volume)Ordered By: Sumanth Lowe on 09-28-2021 Bilirubin [Mass/Vol] 1.0 mg/dL 0.3-1.2 [facility] Serum or plasma total carbon dioxide measurement (moles/volume)Ordered By: Sumanth Lowe on 09-28-2021 CO2 [Moles/Vol] 29.5 mmol/L 22.0-30.0 [facility] Serum or plasma urea nitroge n measurement (mass/volume)Ordered By: Sumanth Lowe on 09-28-2021 Urea nitrogen [Mass/Vol] 7 mg/dL 9-23 [facility] Specific gravity Auto test s trip (U) [Rel density]Ordered By: Sumanth Lowe on 09-28-2021 Specific gravity (U) [Rel density] 1.013 1.001-1.03 0 [facility] Squamous epithelial cells de tection in urine sediment by light microscopyOrdered By: Sumanth Lavelle on 09-28-2021 Epithelial cells.squamous LM Ql (Urine sed) None seen [HPF] 0-2 [facility] Urine Cultureon 09-28-2021 Bacteria identified Cx Nom (U) ORGANISM: Escherichia coli (O:ESCCOL) [place] Count >100,000 Aerobic JIMMY Charge (NUC86) SUSCEPTIBILITY [...] RESISTANT TO ALL B-LACTAM DRUGS. PERFORMED BY: [place] [id number] PATHOLOGIST INNOVATION ANALYST FLIP GERMAN M.D. Normal [facility] Comment on above: Performed By: #### G LULS #### Point of Care testing , Urine bacteria detection by automated methodOrdered By: Sumanth Lowe on 09-28-2021 Bacteria Auto Ql (U) 3+ None Seen [facility] Urine clarity by refractomet ry automatedOrdered By: Sumanth Lowe on 09-28-2021 Clarity Refractometry automated (U) Cloudy Clear [facility] Urine glucose measurement by automated test strip (mass/volume)Ordered By: Sumanth Lowe on 09-28-2021 Glucose Auto test strip (U) [Mass/Vol] Normal mg/dL Normal [facility] Urine hemoglobin detection b y automated test stripOrdered By: Sumanth Lwoe on 09-28-2021 Hemoglobin Auto test strip Ql (U) 2+ Negative [facility] Urine leukocyte esterase det ection by automated test stripOrdered By: Sumanth Lowe on 09-28-2021 Leukocyte esterase Auto test strip Ql (U) 2+ Negative [facility] Urobilinogen Auto test strip (U) [Mass/Vol]Ordered By: Sumanth Lowe on 09-28-2021 Urobilinogen (U) [Mass/Vol] Normal mg/dL Normal [facility] XR chest 2V*on 09-28-2021 XR chest 2V* [facility] Main [address] [address] XRay Report Signed Patient: Alton Barker MR#: [id number] : [id number] Acct:[id number] Age/Sex: 81 / F ADM Date: 09/27/21 Loc: ER Room: Type: [facility] ER Attending Dr: Copies to: [...] Malin Jr., DJoannOJoann09/28/2021 9:27 AM Dictation Location: [place] [address] Transcribed By: [facility] 09/28/21926 Dictated By: Alcides Malin Jr, DO 09/28/21926 Signed By: 09/28/21926 Normal [facility] Yeast detection in urine sed iment by light microscopyOrdered By: Sumanth Lowe on 09-28-2021 Yeast LM Ql (Urine sed) None seen [HPF] None Seen [facility] pH Auto test strip (U)Ordere d By: Sumanth Lowe on 09-28-2021 pH (U) 6.5 [pH] 5.0-9.0 [facility] Prothrombin Time INRon 08-26 INR Coag (PPP) [Relative time] 2.1 {INR} [employer] Other Prothrombin Time INR [facility] [employer] Other Prothrombin Time INRon 08-05 INR Coag (PPP) [Relative time] 2.3 {INR} [employer] Other Prothrombin Time INR [facility] [employer] Other Complete Blood Count with Au to Diffon 07-16-2021 Basophils (Bld) [#/Vol] 0.02 10*3/uL Normal 0.00-0.20 [facility] Sas Programmer Analyst Comment on above: Performed By: #### L IPD, TSH, CMP, VITD, CBCAD #### [facility] [address] [place], [place] [id number] Basophils/100 WBC (Bld) 0.3 % Normal [facility] Sas Programmer Analyst Comment on above: Performed By: #### L IPD, TSH, CMP, VITD, CBCAD #### [facility] [address] [place], [place] [id number] Eosinophils (Bld) [#/Vol] 0.17 10*3/uL Normal 0.02-0.50 [facility] Specialist Comment on above: Performed By: #### L IPD, TSH, CMP, VITD, CBCAD #### [facility] [address] [place], [place] [id number] Eosinophils/100 WBC (Bld) 2.8 % Normal [facility] Specialist Comment on above: Performed By: #### L IPD, TSH, CMP, VITD, CBCAD #### [facility] [address] [place], [place] [id number] Erythrocyte distribution width (RBC) [Ratio] 15.0 % Normal 11.0-15.0 [facility] [employer] Programmer Analyst Comment on above: Performed By: #### L IPD, TSH, CMP, VITD, CBCAD #### [facility] [address] [place], [place] [id number] Hematocrit (Bld) [Volume fraction] 39.2 % Normal 35.0-47.0 [facility] Specialist Comment on above: Performed By: #### L IPD, TSH, CMP, VITD, CBCAD #### [facility] [address] [place], [place] [id number] Hemoglobin (Bld) [Mass/Vol] 12.0 g/dL Normal 11.6-15.5 [facility] Sas Programmer Analyst Comment on above: Performed By: #### L IPD, TSH, CMP, VITD, CBCAD #### [facility] [address] [place], [place] [id number] Lymphocytes (Bld) [#/Vol] 1.7 10*3/uL Normal 0.9-3.9 [facility] Specialist Comment on above: Performed By: #### L IPD, TSH, CMP, VITD, CBCAD #### [facility] [address] [place], [place] [id number] Lymphocytes/100 WBC (Bld) 27.5 % Normal [facility] Specialist Comment on above: Performed By: #### L IPD, TSH, CMP, VITD, CBCAD #### [facility] [address] [place], [place] [id number] MCH (RBC) [Entitic mass] 29.4 pg Normal 27.0-33.0 [facility] Comment on above: Performed By: #### L IPD, TSH, CMP, VITD, CBCAD #### [facility] [address] [place], [place] [id number] MCHC (RBC) [Mass/Vol] 30.6 g/dL Low 32.0-36.0 [facility] Comment on above: Performed By: #### L IPD, TSH, CMP, VITD, CBCAD #### [facility] [address] [place], [place] [id number] MCV (RBC) [Entitic vol] 96 fL Normal 80-100 [facility] Comment on above: Performed By: #### L IPD, TSH, CMP, VITD, CBCAD #### [facility] [address] [place], [place] [id number] Monocytes (Bld) [#/Vol] 0.6 10*3/uL Normal 0.2-0.9 [facility] Comment on above: Performed By: #### L IPD, TSH, CMP, VITD, CBCAD #### [facility] [address] [place], [place] [id number] Monocytes/100 WBC (Bld) 10.5 % Normal [facility] Comment on above: Performed By: #### L IPD, TSH, CMP, VITD, CBCAD #### [facility] [address] [place], [place] [id number] Neutrophils (Bld) [#/Vol] 3.6 10*3/uL Normal 1.5-7.8 [facility] Comment on above: Performed By: #### L IPD, TSH, CMP, VITD, CBCAD #### [facility] [address] [place], [place] [id number] Neutrophils/100 WBC (Bld) 58.6 % Normal [facility] Comment on above: Performed By: #### L IPD, TSH, CMP, VITD, CBCAD #### [facility] [address] [place], [place] [id number] Platelet mean volume (Bld) [Entitic vol] 11.40 fL Normal 7.50-12.50 [facility] Specialist Comment on above: Performed By: #### L IPD, TSH, CMP, VITD, CBCAD #### [facility] [address] [place], [place] [id number] Platelets (Bld) [#/Vol] 193 10*3/uL Normal 140-400 [facility] Specialist Comment on above: Performed By: #### L IPD, TSH, CMP, VITD, CBCAD #### [facility] [address] [place], [place] [id number] RBC (Bld) [#/Vol] 4.08 10*6/uL Normal 3.90-5.20 [facility] Specialist Comment on above: Performed By: #### L IPD, TSH, CMP, VITD, CBCAD #### [facility] [address] [place], [place] [id number] RDW-SD 52.8 fL High 37.0-50.0 [facility] Specialist Comment on above: Performed By: #### L IPD, TSH, CMP, VITD, CBCAD #### [facility] [address] [place], [place] [id number] WBC (Bld) [#/Vol] 6.1 10*3/uL Normal 3.8-11.0 [facility] Sas Programmer Analyst Comment on above: Performed By: #### L IPD, TSH, CMP, VITD, CBCAD #### [facility] [address] [place], [place] [id number] Comprehensive Met[facility] 07-16-2021 Albumin [Mass/Vol] 4.1 g/dL Normal 3.6-5.1 [facility] Sas Programmer Analyst Comment on above: Performed By: #### L IPD, TSH, CMP, VITD, CBCAD #### [facility] [address] [place], [place] [id number] Albumin/Globulin [Mass ratio] 1.5 {ratio} Normal 1.0-2.5 [facility] Specialist Comment on above: Performed By: #### L IPD, TSH, CMP, VITD, CBCAD #### [facility] [address] [place], [place] [id number] ALP [Catalytic activity/Vol] 104 U/L Normal 35-119 [facility] Comment on above: Performed By: #### L IPD, TSH, CMP, VITD, CBCAD #### [facility] [address] [place], [place] [id number] ALT [Catalytic activity/Vol] 7 U/L Normal 6-33 [facility] Comment on above: Result Comment: 02/11 Female reference range changed. Performed By: #### L IPD, TSH, CMP, VITD, CBCAD #### [facility] [address] [place], [place] [id number] Anion gap [Moles/Vol] 18 mmol/L Normal 12-20 [facility] Comment on above: Result Comment: Effe ctive 03/19/2019 reference range changed. Performed By: #### L IPD, TSH, CMP, VITD, CBCAD #### [facility] [address] [place], [place] [id number] AST [Catalytic activity/Vol] 16 U/L Normal 9-34 [facility] Comment on above: Performed By: #### L IPD, TSH, CMP, VITD, CBCAD #### [facility] [address] [place], [place] [id number] Bilirubin [Mass/Vol] 0.92 mg/dL Normal 0.30-1.20 [facility] Comment on above: Performed By: #### L IPD, TSH, CMP, VITD, CBCAD #### [facility] [address] [place], [place] [id number] BUN/CREA 29 Ratio High 6-22 [facility] Comment on above: Performed By: #### L IPD, TSH, CMP, VITD, CBCAD #### [facility] [address] [place], [place] [id number] Calcium [Mass/Vol] 9.5 mg/dL Normal 8.6-10.2 [facility] Comment on above: Performed By: #### L IPD, TSH, CMP, VITD, CBCAD #### [facility] [address] [place], [place] [id number] Chloride [Moles/Vol] 99 mmol/L Normal 98-107 [place] Sas Programmer Analyst Comment on above: Performed By: #### L IPD, TSH, CMP, VITD, CBCAD #### [facility] [address] [place], [place] [id number] CO2 [Moles/Vol] 26 mmol/L Normal 20-31 [facility] Comment on above: Performed By: #### L IPD, TSH, CMP, VITD, CBCAD #### [facility] [address] [place], [place] [id number] Creatinine [Mass/Vol] 0.5 mg/dL Low 0.6-1.4 [facility] Comment on above: Performed By: #### L IPD, TSH, CMP, VITD, CBCAD #### [facility] [address] [place], [place] [id number] eGFRAA 135 mL/min/1.73m2 Normal >60 [facility] Specialist Comment on above: Performed By: #### L IPD, TSH, CMP, VITD, CBCAD #### [facility] [address] [place], [place] [id number] eGFRNAA 111 mL/min/1.73m2 Normal >60 [facility] Comment on above: Performed By: #### L IPD, TSH, CMP, VITD, CBCAD #### [facility] [address] [place], [place] [id number] Globulin (S) [Mass/Vol] 2.7 g/dL Normal 1.9-3.7 [facility] Specialist Comment on above: Performed By: #### L IPD, TSH, CMP, VITD, CBCAD #### [facility] [address] [place], [place] [id number] Glucose [Mass/Vol] 222 mg/dL High 65-99 [facility] Specialist Comment on above: Result Comment: For FASTING Glucose --- ADA reference ranges: Normal 65-99 mg/dl Prediabetes 100-125 Diabetes >/= 126 Performed By: #### L IPD, TSH, CMP, VITD, CBCAD #### [facility] [address] [place], [place] [id number] Potassium [Moles/Vol] 4.7 mmol/L Normal 3.5-5.5 [facility] Specialist Comment on above: Performed By: #### L IPD, TSH, CMP, VITD, CBCAD #### [facility] [address] [place], [place] [id number] Protein [Mass/Vol] 6.8 g/dL Normal 6.1-8.1 [place] [employer] Programmer Analyst Comment on above: Performed By: #### L IPD, TSH, CMP, VITD, CBCAD #### [facility] [address] [place], [place] [id number] Sodium [Moles/Vol] 138 mmol/L Normal 135-146 Marcia rn [place] Sas Programmer Analyst Comment on above: Performed By: #### L IPD, TSH, CMP, VITD, CBCAD #### [facility] [address] [place], [place] [id number] Urea nitrogen [Mass/Vol] 15 mg/dL Normal 7-25 [facility] Sas Programmer Analyst Comment on above: Performed By: #### L IPD, TSH, CMP, VITD, CBCAD #### [facility] [address] [place], [place] [id number] Hemoglobin A1Con 07-16-2021 EAG 194.38 Normal [facility] Specialist Comment on above: Performed By: #### A 1C #### [facility] [address] [place], [place] [id number] HbA1c (Bld) [Mass fraction] 8.4 % High 4.0-6.0 [facility] Sas Programmer Analyst Comment on above: Performed By: #### A 1C #### [facility] [address] [place], [place] [id number] Lipid Panelon 07-16-2021 Cholesterol [Mass/Vol] 172 mg/dL Normal 125-200 [facility] Sas Programmer Analyst Comment on above: Result Comment: Low risk < 200mg/dL Borderline risk 201-239 mg/dl High risk > or equal to 240 Performed By: #### L IPD, TSH, CMP, VITD, CBCAD #### [facility] [address] [place], [place] [id number] Cholesterol in HDL [Mass/Vol] 57 mg/dL Normal >40 [facility] Sas Programmer Analyst Comment on above: Result Comment: High Cardiovascular Risk HDL <40 mg/dL Low Cardiovascular Risk HDL > or equal to 60 mg/dl Performed By: #### L IPD, TSH, CMP, VITD, CBCAD #### [facility] [address] [place], [place] [id number] Cholesterol in LDL [Mass/Vol] 88 mg/dL Normal [facility] Specialist Comment on above: Result Comment: LDL ATP III CLASSIFICATION LDL less than 100 mg/dl Optimal LDL 100-129 mg/dl Near or above optimal LDL 130-159 Borderline high LDL 160-189 High LDL greater than 189 mg/dl Very High Performed By: #### L IPD, TSH, CMP, VITD, CBCAD #### [facility] [address] [place], [place] [id number] Cholesterol in VLDL [Mass/Vol] 27 mg/dL Normal [facility] Specialist Comment on above: Performed By: #### L IPD, TSH, CMP, VITD, CBCAD #### [facility] [address] [place], [place] [id number] Cholesterol.total/Cho lesterol in HDL [Mass ratio] 3 {ratio} Normal [facility] Specialist Comment on above: Performed By: #### L IPD, TSH, CMP, VITD, CBCAD #### [facility] [address] [place], [place] [id number] Triglyceride [Mass/Vol] 133 mg/dL Normal 30-150 [facility] Sas Programmer Analyst Comment on above: Result Comment: TRIG ATPIII CLASSIFICATIONS TRIG less than 150 mg/dl Normal TRIG 150-199 mg/dl Borderline High TRIG 200-500 mg/dl High TRIG greather than 500 mg/dl Very High Performed By: #### L IPD, TSH, CMP, VITD, CBCAD #### [facility] [address] [place], [place] [id number] TSHon 07-16-2021 TSH 1.480 uIU/mL Normal 0.400-4.50 0 [facility] Specialist Comment on above: Performed By: #### L IPD, TSH, CMP, VITD, CBCAD #### [facility] [address] [place], [place] [id number] Vitamin B12on 07-16-2021 Cobalamin (Vitamin B12) [Mass/Vol] 1009 pg/mL High 211-946 [facility] Specialist Comment on above: Performed By: #### B 12 #### [facility] [address] [place], [place] [id number] Vitamin D 25-OHon 07-16-2021 VIT D 25 OH 56 ng/ml Normal >29 [facility] Sas Programmer Analyst Comment on above: Result Comment: Frederic min D Status Deficiency <20 ng/mL Insufficiency 20-29 ng/mL Optimal 30-100 ng/mL Possible Toxicity >=150 ng/mL Performed By: #### L IPD, TSH, CMP, VITD, CBCAD #### [facility] [address] [facility] [place] [id number] Prothrombin Time INRon 06-10 INR Coag (PPP) [Relative time] 5.2 {INR} [employer] Other Prothrombin Time INR [employer] Other Prothrombin Time INRon 05-26 INR Coag (PPP) [Relative time] 3.9 {INR} [employer] Other Prothrombin Time INR [employer] Other Prothrombin Time INRon 03-25 INR Coag (PPP) [Relative time] 3.2 {INR} [employer] Other Prothrombin Time INR [employer] Other Prothrombin Time INRon 02-25 INR Coag (PPP) [Relative time] 1.9 {INR} [employer] Other Prothrombin Time INR [employer] Other Prothrombin Time INRon 01-28 INR Coag (PPP) [Relative time] 2.2 {INR} [employer] Other Prothrombin Time INR [employer] Other Prothrombin Time INRon 12-10 INR Coag (PPP) [Relative time] 2.4 {INR} [employer] Other Prothrombin Time INR [employer] Other Office Visit (Neuro-Movement -PD)on 11-01-2017 Office Visit (Nkecx-Pufqvkjn-PD) History of Present IllnessALTON BARKER is here [...] asleep and no acting out of dreams. Cunningham Sleepiness Scale is 14. She reports concern [...] MG Oral Tablet Vitals Vital Signs Recorded: [id number] 01:33PMHeart Ltis51Gzpdakee254, AEEKqjowdsbf87, XNCYkeoaf808 lb 1 ozBMI Kojiladiaj77.59BSA Calculated2.27 Physical ExamConstitutional: General appearance: no acute [...] disease; KISHOR = N; Verified Transmission to [facility] 4288; Last Updated By: [employer]; 10/26/2017 2:12:16 PM Provider ImpressionsShe is a [...] and treatment options. 25 minutes was spent szcy-nr-vfqp in the visit. Patient Discussion/SummaryI am recommending [...] 14:53-0400 Body height 167.6 cm Gloria Perez SALES AGENT PEST CONTROL SERVICE.PIPE MACHINE OPERATOR Work Phone: [facility] 06-23-2023 14:53-0400 Body weight 107.6 kg Gloria Perez SALES AGENT PEST CONTROL SERVICE.PIPE MACHINE OPERATOR Work Phone: [facility] 06-23-2023 14:53-0400 SaO2% (BldA) [Mass fraction] 99 % Gloria Perez SALES AGENT PEST CONTROL SERVICE.PIPE MACHINE OPERATOR Work Phone: [facility] 01-20-2023 14:52-0500 Body height 167.6 cm Gloria Perez SALES AGENT PEST CONTROL SERVICE.PIPE MACHINE OPERATOR Work Phone: [facility] 01-20-2023 14:52-0500 SaO2% (BldA) [Mass fraction] 98 % Gloria Perez SALES AGENT PEST CONTROL SERVICE.PIPE MACHINE OPERATOR Work Phone: [facility] 07-08-2022 14:54-0400 Body height 167.6 cm Gloria Perez SALES AGENT PEST CONTROL SERVICE.PIPE MACHINE OPERATOR Work Phone: [facility] 07-08-2022 14:54-0400 Body weight 85.14 kg Gloria Perez SALES AGENT PEST CONTROL SERVICE.PIPE MACHINE OPERATOR Work Phone: [facility] 07-08-2022 14:54-0400 SaO2% (BldA) [Mass fraction] 98 % Gloria Perez SALES AGENT PEST CONTROL SERVICE.PIPE MACHINE OPERATOR Work Phone: [facility] 05-20-2022 09:30-0500 Diastolic blood pressure 60 mm[Hg] DO Honey Rabago Work Phone: [facility] 05-20-2022 09:30-0500 Heart rate 89 /min DO Honey Rabago Work Phone: [facility] 05-20-2022 09:30-0500 Systolic blood pressure 106 mm[Hg] DO Honey Rabago Work Phone: [facility] 11-25-2021 16:00-0400 Body temperature 97.4 [degF] DO Honey Vaschak Work Phone: [facility] 11-25-2021 16:00-0400 Diastolic blood pressure 61 mm[Hg] DO Honey Vaschak Work Phone: [facility] 11-25-2021 16:00-0400 Heart rate 98 /min DO Honey Mukulk Work Phone: [facility] 11-25-2021 16:00-0400 Respiratory rate 16 /min DO Honey Mukulk Work Phone: [facility] 11-25-2021 16:00-0400 SaO2% (BldA) [Mass fraction] 98 % DO Honey Danilochak Work Phone: [facility] 11-25-2021 16:00-0400 Systolic blood pressure 96 mm[Hg] DO Honey Mukulk Work Phone: [facility] 11-24-2021 12:10-0400 Body height 167.64 cm DO Honey Hima Work Phone: [facility] 11-22-2021 06:00-0400 Body weight 92.8 kg DO Honey Mkuulk Work Phone: [facility] 11-13-2021 21:44-0400 Body temperature 98.1 [degF] DO Honey Mukulk Work Phone: [facility] 11-13-2021 21:44-0400 Diastolic blood pressure 71 mm[Hg] DO Honey Mukulk Work Phone: [facility] 11-13-2021 21:44-0400 Heart rate 92 /min DO Honey Mukulk Work Phone: [facility] 11-13-2021 21:44-0400 Respiratory rate 18 /min DO Honey Mukulk Work Phone: [facility] 11-13-2021 21:44-0400 SaO2% (BldA) [Mass fraction] 98 % DO Honey Vaschak Work Phone: [facility] 11-13-2021 21:44-0400 Systolic blood pressure 112 mm[Hg] DO Honey Vaschak Work Phone: [facility] 11-12-2021 16:00-0400 Body temperature 97.6 [degF] DO Honey Danilochak Work Phone: [facility] 11-12-2021 16:00-0400 Diastolic blood pressure 63 mm[Hg] DO Honey Danilochak Work Phone: [facility] 11-12-2021 16:00-0400 Heart rate 96 /min DO Honey Mukulk Work Phone: [facility] 11-12-2021 16:00-0400 Respiratory rate 16 /min DO Hoeny Mukulk Work Phone: [facility] 11-12-2021 16:00-0400 SaO2% (BldA) [Mass fraction] 98 % DO Honey Danilochak Work Phone: [facility] 11-12-2021 16:00-0400 Systolic blood pressure 98 mm[Hg] DO Honey Danilochak Work Phone: [facility] 11-12-2021 10:30-0400 Body height 167.64 cm DO Honey Danilochak Work Phone: [facility] 11-11-2021 15:00-0400 Body weight 92.98 kg DO Honey Danilochak Work Phone: [facility] 11-11-2021 08:00-0400 Body temperature 97.9 [degF] DO Honey Danilochak Work Phone: [facility] 11-11-2021 08:00-0400 Diastolic blood pressure 67 mm[Hg] DO Honey Vaschak Work Phone: [facility] 11-11-2021 08:00-0400 Heart rate 87 /min DO Honey Vaschak Work Phone: [facility] 11-11-2021 08:00-0400 SaO2% (BldA) [Mass fraction] 95 % DO Honey Vaschak Work Phone: [facility] 11-11-2021 08:00-0400 Systolic blood pressure 103 mm[Hg] DO Honey Vaschak Work Phone: [facility] 11-11-2021 05:58-0400 Respiratory rate 17 /min DO Honey Vaschak Work Phone: [facility] 11-11-2021 04:10-0400 Body weight 93.3 kg DO Honey Vaschak Work Phone: [facility] 11-05-2021 16:33-0400 Body height 167.64 cm DO Honey Vaschak Work Phone: [facility] 10-19-2021 23:25-0400 Diastolic blood pressure 78 mm[Hg] DO Honey Vaschak Work Phone: [facility] 10-19-2021 23:25-0400 Heart rate 83 /min DO Honey Vaschak Work Phone: [facility] 10-19-2021 23:25-0400 Respiratory rate 18 /min DO Honey Vaschak Work Phone: [facility] 10-19-2021 23:25-0400 SaO2% (BldA) [Mass fraction] 100 % DO Honey Vaschak Work Phone: [facility] 10-19-2021 23:25-0400 Systolic blood pressure 164 mm[Hg] DO Honey Vaschak Work Phone: [facility] 10-19-2021 19:51-0400 Body temperature 97.6 [degF] DO Honey Vaschak Work Phone: [facility] 10-19-2021 19:48-0400 Body height 167.64 cm DO Honey Vaschak Work Phone: [facility] 10-19-2021 19:48-0400 Body weight 98.6 kg DO Honey Vaschak Work Phone: [facility] 10-01-2021 11:58-0400 Body height 167.6 cm Gloria Perez SALES AGENT PEST CONTROL SERVICE.PIPE MACHINE OPERATOR Work Phone: [facility] 10-01-2021 11:58-0400 Body weight 101.06 kg Gloria Perez SALES AGENT PEST CONTROL SERVICE.PIPE MACHINE OPERATOR Work Phone: [facility] 10-01-2021 11:58-0400 SaO2% (BldA) [Mass fraction] 98 % Gloria Perez SALES AGENT PEST CONTROL SERVICE.PIPE MACHINE OPERATOR Work Phone: [facility] 09-28-2021 02:06-0400 Heart rate 86 /min DO Honey Danilochak Work Phone: [facility] 09-28-2021 00:01-0400 Body height 167.64 cm DO Honey Mukulk Work Phone: [facility] 09-28-2021 00:01-0400 Body mass index (BMI) [Ratio] 35.5 kg/m2 DO Honey Vaschak Work Phone: [facility] 09-28-2021 00:01-0400 Body weight 99.79 kg DO Honey Danilochak Work Phone: [facility] 09-27-2021 23:57-0400 Body temperature 99.6 [degF] DO Honey Vaschak Work Phone: [facility] 09-27-2021 23:57-0400 Diastolic blood pressure 59 mm[Hg] DO Honey Vaschak Work Phone: [facility] 09-27-2021 23:57-0400 Respiratory rate 16 /min DO Honey Danilochak Work Phone: [facility] 07-17-2022 23:57-0400 SaO2% (BldA) [Mass fraction] 97 % DO Honey Rabago Work Phone: [facility] 09-27-2021 23:57-0400 Systolic blood pressure 125 mm[Hg] DO Honey Rabago Work Phone: [facility] 07-31-2020 16:20-0400 Body height 167.64 cm Honey Rabago Work Phone: [facility] 07-31-2020 16:20-0400 Body mass index (BMI) [Ratio] 41.6 kg/m2 Honey [employer] Work Phone: [facility] 07-31-2020 16:20-0400 Body weight 117.02 kg Honey Rabago Work Phone: [facility] 07-31-2020 16:19-0400 Body temperature 98.1 [degF] Honey [employer] Work Phone: [facility] 07-31-2020 16:19-0400 Diastolic blood pressure 70 mm[Hg] Honey [employer] Work Phone: [facility] 07-31-2020 16:19-0400 Heart rate 90 /min Honey Rabago Work Phone: [facility] 07-31-2020 16:19-0400 Respiratory rate 18 /min Honey Rabago Work Phone: [facility] 07-31-2020 16:19-0400 SaO2% (BldA) [Mass fraction] 98 % Honey Rabago Work Phone: [facility] 07-31-2020 16:19-0400 Systolic blood pressure 155 mm[Hg] Honey Rabago Work Phone: [facility] Encounters Encounter Date Encounter Type Care Provider Facility Start: 08-18-2023 End: 08-18-2023 ambulatory URBANO HUTTON Not Available Start: 08-16-2023 End: 08-16-2023 ambulatory VALORIE SULLIVAN Not Available Start: 07-29-2023 End: 07-29-2023 ambulatory HONEY RABAGO Not Available Start: 06-23-2023 End: 06-23-2023 ambulatory GLORIA PEREZ Facility:[facility] Start: 06-23-2023 End: 06-23-2023 Patient encounter procedure Gloria Perez APRN.PIPE MACHINE OPERATOR Work Phone: Neurology Comment on above: Depression [...] Available Start: 02-11-2023 Telephone encounter Gloria blankenship APRN.PIPE MACHINE OPERATOR Work Phone: Neurology Comment on above: Medication Problem Start: 01-25-2023 End: 01-25-2023 ambulatory URBANO HUTTON Not Available Start: 01-20-2023 End: 01-20-2023 ambulatory GLORIA PEREZ Facility:[facility] Start: 01-20-2023 End: 01-20-2023 Patient encounter procedure Gloria Perez APRN.PIPE MACHINE OPERATOR Work Phone: Neurology Comment on above: Parkinson's disease without dyskinesia, with fluctuating manifestations (Primary Dx); Depression with anxiety Start: 07-14-2022 End: 07-14-[address] HONEY RABAGO Facility:[facility] Start: 07-12-2022 End: 07-12-[address] HONEY RABAGO Facility:[facility] Start: 07-08-2022 End: 07-08-2022 ambulatory HONEY RABAGO Facility:[facility] Start: 07-08-2022 End: 07-08-2022 Patient encounter procedure Gloria Perez APRN.PIPE MACHINE OPERATOR Work Phone: Neurology Comment on above: Parkinson's disease (HCC) (Primary Dx); Depression with anxiety Start: 06-01-2022 End: 06-01-[address] HONEY RABAGO Facility:[facility] Start: 05-31-2022 ambulatory Gloria Perez APRN.PIPE MACHINE OPERATOR Work Phone: Neurology Comment on above: UPDATE: ALTON CRAWFORD : [birth year] Start: 05-20-2022 End: 05-20-2022 ambulatory Honey Rabago Facility:[facility] Start: 05-20-2022 End: 05-20-2022 ambulatory DO Honey Rabago Work Phone: [facility] Work Phone: Start: 05-20-2022 End: 05-20-2022 Discharged Recurring DO Honey Rabago Work Phone: [facility]fusion [facility] - O/P Work Phone: Start: 04-13-2022 Refill Gloria Perez APRN.PIPE MACHINE OPERATOR Work Phone: Neurology Comment on above: Refill Request Start: 02-15-2022 Telephone encounter Gloria blankenship APRN.PIPE MACHINE OPERATOR Work Phone: Neurology Comment on above: Patient Update Start: 02-02-2022 End: 02-03-[address] HONEY RABAGO Facility:[facility] Start: 01-08-2022 End: 01-08-2022 ambulatory Anu Alva Other [facility] Other Start: 01-08-2022 Telephone encounter Anu Alva [facility] Start: 12-30-2021 End: 12-30-2021 ambulatory Honey Rabago Facility:[facility] Start: 12-30-2021 End: 12-30-2021 Patient encounter procedure DO Honey Rabago Work Phone: [facility] Start: 12-29-2021 End: 12-30-[address] HONEY RABAGO Facility:[facility] Start: 12-21-2021 End: 12-21-[address] HONEY RABAGO Facility:[facility] Start: 12-15-2021 (Repeat [facility]) Anu Juan Migueljulius [facility] Start: 12-15-2021 End: 12-15-2021 ambulatory Anu Alva Other [facility] Other Start: 12-14-2021 End: 12-14-[address] HONEY RABAGO Facility:[facility] Start: 12-01-2021 (Repeat [facility]) Anu Alva [facility] Start: 12-01-2021 End: 12-01-2021 ambulatory Anu Alva Other [facility] Other Start: 11-30-2021 End: 11-30-[address] HONEY RABAGO Facility:[facility] Start: 11-11-2021 End: 11-25-2021 Evaluation and management of inpatient Alcides Moya Facility:[facility] Start: 11-11-2021 End: 11-25-2021 Evaluation and management of inpatient DO Méndez Danilokoki Work Phone: [facility] Start: 11-05-2021 End: 11-05-2021 ambulatory Oswaldo Almonte Other [facility] Other Start: 11-05-2021 Patient encounter procedure Oswaldo Almonte [facility] Start: 11-05-2021 Telephone encounter Gloria blankenship APRN.PIPE MACHINE OPERATOR Work Phone: Neurology Comment on above: Appointment; Patient Update (Called to schedule follow up. Patient in hospital.) Start: 11-04-2021 End: 11-11-2021 ambulatory Honey Rabago Facility:[facility] Start: 11-04-2021 End: 11-11-2021 Evaluation and management of inpatient DO Méndez Danilokoki Work Phone: [facility] Start: 10-26-2021 ambulatory Gloria Perez APRN.PIPE MACHINE OPERATOR Work Phone: Neurology Comment on above: ALTON BARKER UPDATE MESSAGE #3 Start: 10-22-2021 Registered Recurring DO Honey Rabago Work Phone: [facility] Start: 10-22-2021 ([facility] R A/c) [facility] Re peat A/C Anu Fitt [facility] Start: 10-22-2021 End: 10-23-2021 ambulatory Honey Rabago [facility] Other Start: 10-19-2021 End: 10-20-2021 Emergency department patient visit Holger Dorado Facility:[facility] Start: 10-19-2021 End: 10-20-2021 Emergency department patient visit DO Honey Rabago Work Phone: [facility]-Emergency Room Start: 10-01-2021 End: 10-01-2021 Patient encounter procedure Gloria Perez APRN.PIPE MACHINE OPERATOR Work Phone: Neurology Comment on above: Recurrent episodes o f unresponsiveness (Primary Dx); Parkinson's disease (HCC); Depression with anxiety; Fatigue, unspecified type; Excessive daytime sleepiness Start: 09-29-2021 ([facility] R A/c) [facility] Re peat A/C Anu Fitt [facility] Start: 09-29-2021 End: 09-29-2021 ambulatory Anu Fitt Other [facility] Other Start: 09-28-2021 End: 09-28-2021 Emergency department patient visit Sumanth Lowe Facility:[facility] Start: 09-27-2021 End: 09-28-2021 Emergency department patient visit DO Honey Rabago Work Phone: [facility] Start: 09-23-2021 End: 09-23-2021 ambulatory Anu Fitt Other [facility] Other Start: 09-23-2021 Telephone encounter Anu Juan Miguelt [facility] Start: 08-26-2021 ([facility] R A/c) [facility] Re peat A/C Anu Fitt [facility] Start: 08-26-2021 End: 08-26-2021 ambulatory Anu Fitt Other [facility] Other Start: 08-05-2021 ([facility] R A/c) [facility] Re peat A/C Anu Fitt [facility] Start: 08-05-2021 End: 08-05-2021 ambulatory Anu Fitt Other [facility] Other Start: 07-20-2021 ([facility] R A/c) [facility] Re peat A/C Anu Fitt [facility] Start: 07-20-2021 End: 07-20-2021 ambulatory Anu Fitt Other [facility] Other Start: 06-10-2021 ([facility] R A/c) [facility] Re peat A/C Anu Fitt [facility] Start: 06-10-2021 End: 06-10-2021 ambulatory Anu Fitt Other [facility] Other Start: 05-26-2021 ([facility] R A/c) [facility] Re peat A/C Anu Fitt [facility] Start: 05-26-2021 End: 05-26-2021 ambulatory Anu Fitt Other [facility] Other Start: 05-19-2021 End: 05-19-2021 ambulatory Anu Fitt Other [facility] Other Start: 05-19-2021 Telephone encounter Anu Nida [facility] Start: 04-21-2021 End: 04-21-2021 ambulatory Anu Fitt Other [facility] Other Start: 04-21-2021 Telephone encounter Anu Fitt [facility] Start: 04-15-2021 End: 04-15-2021 ambulatory Anu Fitt Other [facility] Other Start: 04-15-2021 Telephone encounter Anu Fitt [facility] Start: 03-25-2021 ([facility] R A/c) [facility] Re peat A/C Anu Fitt [facility] Start: 03-25-2021 End: 03-25-2021 ambulatory Anu Fitt Other [facility] Other Start: 02-25-2021 ([facility] R A/c) [facility] Re peat A/C Anu Fitt [facility] Start: 02-25-2021 End: 02-25-2021 ambulatory Anu Fitt Other [facility] Other Start: 01-28-2021 ([facility] R A/c) [facility] Re peat A/C Anu Fitt [facility] Start: 01-28-2021 End: 01-28-2021 ambulatory Anu Fitt Other [facility] Other Start: 01-21-2021 End: 01-21-2021 ambulatory Anu Fitt Other [facility] Other Start: 01-21-2021 Telephone encounter Anu Fitt [facility] Start: 01-07-2021 End: 01-07-2021 ambulatory Anu Fitt Other [facility] Other Start: 01-07-2021 Telephone encounter Anu Fitt [facility] Start: 12-10-2020 ([facility] R A/c) [facility] Re peat A/C Anu Alva [facility] Start: 07-31-2020 End: 07-31-2020 Emergency department patient visit Honey Rabago Work Phone: -Emergency Room Start: 06-18-2020 Registered Recurring Honey jaraaura Work Phone: -[facility] Procedures Date Procedure Procedure Detail Performing [...] Adult depression scr eening assessment Gloria Perez SALES AGENT PEST CONTROL SERVICE.PIPE MACHINE OPERATOR Work Phone: Start: 09-28-2021 Plain chest [...] Start: 03-28-2026 Diabetes Screening Diabetes Screenjason soto [facility] Start: 01-23-2024 Glaucoma screening Diabetes: R etinopathy Screening [facility] Start: 12-04-2023 DIABETES SCREEN DIABETES SCREEN [facility] Start: 12-04-2023 Diabetes Screening Diabetes Screenin charles [facility] Start: 10-06-2023 End: 10-06-2023 Patient encounter procedure 10/06/2023 10:50 AM EDT Office Visit [facility] [address] [place] [id number] Nicol Aponte MD [address] [place] [address] [facility] Start: 07-29-2023 Medicare Annual Wellness (AWV) Medicare Annual Wellness (AWV) [facility] Start: 07-27-2023 End: 07-27-2023 Patient encounter procedure 07/27/2023 2:00 PM EDT Office Visit [facility] [address] [place] [phone] Honey Rabago DO [address] [place] [address] [facility] Start: 06-27-2023 Hemoglobin A1c measurement Diabetes: Hemoglobin A1C [facility] Start: 05-04-2023 End: 05-04-2023 Patient encounter procedure 05/04/2023 1:00 PM EST Procedure Visit [facility] [address] [place] [phone] Urbano Hutton DPM [address] [place] [address] [facility] Start: 03-14-2023 Advance Directive Discussion Advance Directive Discussion [facility] Start: 11-12-2022 Covid-19 Vaccine ( season) Covid-19 Vaccine () [facility] Start: 09-29-2022 Adult depression screening assessment DEPRESSION SCREENING [facility] Start: 03-14-2022 ADVANCE DIRECTIVE DISCUSSION ADVANCE DIRECTIVE DISCUSSION [facility] Start: 03-14-2022 DEPRESSION ASSESSMENT DEPRESSION ASS ESSMENT [facility] Start: 12-11-2021 [facility] Work Phone: Start: 12-10-2021 [facility] Work Phone: Start: 12-09-2021 [facility] Work Phone: Start: 12-08-2021 [facility] Work Phone: Start: 12-07-2021 [facility] Work Phone: Start: 12-06-2021 [facility] Work Phone: Start: 12-05-2021 [facility] Work Phone: Start: 12-04-2021 [facility] Work Phone: Start: 12-03-2021 [facility] Work Phone: Start: 12-02-2021 [facility] Work Phone: Start: 12-01-2021 [facility] Work Phone: Start: 11-30-2021 [facility] Work Phone: Start: 11-29-2021 [facility] Work Phone: Start: 11-28-2021 [facility] Work Phone: Start: 11-27-2021 [facility] Work Phone: Start: 11-26-2021 [facility] Work Phone: Start: 11-25-2021 [facility] Work Phone: Start: 11-24-2021 End: 11-24-2021 [facility] Start: 11-23-2021 [facility] Start: 11-22-2021 [facility] Work Phone: Start: 11-21-2021 [facility] Work Phone: Start: 11-20-2021 [facility] Work Phone: Start: 11-19-2021 [facility] Work Phone: Start: 11-18-2021 [facility] Work Phone: Start: 11-17-2021 [facility] Work Phone: Start: 11-16-2021 [facility] Work Phone: Start: 11-15-2021 [facility] Work Phone: Start: 11-14-2021 [facility] Work Phone: Start: 11-13-2021 [facility] Work Phone: Start: 11-12-2021 Influenza vaccination INFLUENZA (#1) [facility] Start: 11-11-2021 Administration of prophylactic treatment [facility] Start: 11-11-2021 Hospital admission [facility] Start: 11-11-2021 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 wheat inspector [facility] Start: 11-11-2021 [facility] Work Phone: Start: 11-11-2021 Evaluation and management of inpatient Back pain [facility] Start: 11-09-2021 [facility] Start: 11-05-2021 MR lumbar spine wo con MR lumbar spi ne wo con [facility] Start: 11-05-2021 Administration of prophylactic treatment [facility] Start: 11-05-2021 Administration of prophylactic treatment [facility] Start: 11-05-2021 Consultation [facility] Start: 11-04-2021 Referral to psychiatrist [facility] Start: 11-04-2021 Hospital admission [facility] Start: 11-04-2021 End: 11-11-2021 Evaluation and management of inpatient Back pain [facility] Start: 11-04-2021 CT of head without contrast CT head/brain wo [facility] Start: 11-04-2021 Computed tomography of thoracic spine without contrast CT thoracic spine wo [facility] Start: 11-04-2021 CT cervical spine without contrast CT cervical spine wo [facility] Start: 11-04-2021 CT of lumbar spine without contrast CT lumbar spine wo [facility] Start: 10-22-2021 Registered Recurring Registered Recu rring [facility] Start: 07-28-2021 Urine screening for protein Diabetes: Urine Protein Screening [facility] Start: 05-20-2021 COVID-19 VACCINE (4 - Booster for Moderna series) COVID-19 VACCINE (4 - Booster for Moderna series) [facility] Start: 03-17-2021 COVID-19 VACCINE (4 - Booster for Moderna series) COVID-19 VACCINE (4 - Booster for Moderna series) [facility] Start: 03-14-2021 ADVANCE DIRECTIVE DISCUSSION ADVANCE DIRECTIVE DISCUSSION [facility] Start: 03-14-2021 DEPRESSION ASSESSMENT DEPRESSION ASS ESSMENT [facility] Start: 07-23-2009 Urine microalbumin profile DTaP,Tdap,Td Vaccine (1 - Tdap) [facility] Start: 2006 BONE DENSITY BONE DENSITY [facility] Start: 2006 Bone Density Screening Bone Density Screening [facility] Start: 2006 PNEUMOCOCCAL: 65+ (1 - PCV) PNEUMOCOCCAL: 65+ (1 - PCV) [facility] Start: 2001 RSV Vaccine (1 - 1-d ose 60+ series) RSV Vaccine (1 - 1-dose 60+ series) [facility] Start: 07-14-1991 SHINGRIX VACCINE (1 of 2) SHINGRIX VACCINE (1 of 2) [facility] Start: 1960 Urine microalbumin profile DTAP,TDAP,TD (1 - Tdap) [facility] End: 10-04-2022 EPIL EEG ROUTINE EPIL EEG ROUTINE NEUROLOGY Routine Recurrent episodes of unresponsiveness 1 Occurrences starting 10/04/2021 until 10/04/2022 [facility] Work Phone: Comment on above: 1 Occurrences starti ng 10/04/2021 until 10/04/2022 Patient Education [facility] Work Phone: Patient referral [facility] Immunizations Immunization Date Immunization Notes Care Provider Fa cili 12-15-2022 Influenza, Seasonal, Quadrivalent, Adjuvanted Generic Provider [facility] 01-25-2022 influenza, high dose seasonal, preservative-free Generic Provider [facility] 12-03-2020 influenza, high dose seasonal, preservative-free Generic Provider [facility] 12-24-2019 Seasonal trivalent influenza vaccine, adjuvanted, preservative free Generic Provider [facility] 02-05-2019 influenza, high dose seasonal, preservative-free Anu Juan Miguelt Other [facility] Other 02-10-2018 influenza, high dose seasonal, preservative-free Generic Provider [facility] 05-03-2017 influenza, injectabl e, quadrivalent, preservative free Generic Provider [facility] 12-25-2015 influenza, high dose seasonal, preservative-free Generic Provider [facility] 12-17-2014 influenza, seasonal, injectable, preservative free Generic Provider [facility] 10-02-2014 pneumococcal conjuga te vaccine, 13 valent Generic Provider [facility] 11-28-2013 influenza, high dose seasonal, preservative-free Generic Provider [facility] 10-01-2013 pneumococcal polysaccharide vaccine, 23 valent Generic Provider [facility] 01-13-2012 seasonal influenza, intradermal, preservative free Generic Provider [facility] 01-09-2010 seasonal influenza, intradermal, preservative free Generic Provider [facility] 07-22-2009 tetanus and diphther ia toxoids, adsorbed, preservative free, for adult use (2 Lf of tetanus toxoid and 2 Lf of diphtheria toxoid) Generic Provider [facility] 12-16-2008 seasonal influenza, intradermal, preservative free Generic Provider [facility] Payers Date Payer Category Payer Medicare [id number] 2021 Medicare [id number] 2021 Medicare [id number] 2021 Unknown ANTHEM BLUE CROS S AND BLUE SHIELD ANTHEM MEDIBLUE HMO [id number] 2021-[facility] [phone] [address] [place] [address] O [id number] .[id number] 2021 Unknown [id number]. [id number] .[id number] 2016 Self-pay [id number] 1959 Medicare [id number] 1959 Unknown [id number] 1941 Unknown [id number] 2.16.840.1.104124.3.579.2.5 1941 Unknown [id number] .16.840.1.101034.3.579.2.5 1941 Unknown [id number] 2.16.840.1.592778.3.579.2.5 1941 Unknown [id number] 2.16.840.1.304809.3.579.2.5 1941 Unknown [id number] 2.16.840.1.477352.3.579.2.5 1941 Unknown [id number] 2.16.840.1.739784.3.579.2.5 93 1941 Unknown [id number] 2.16.840.1.729586.3.579.2.5 93 1941 Unknown [id number] 2.16.840.1.293441.3.579.2.5 93 1941 Unknown [id number] 2.16.840.1.872756.3.579.2.1 259 1941 Unknown [id number] 2.16.840.1.284169.3.579.2.1 259 1941 Unknown [id number] 2.16.840.1.987462.3.579.2.1 259 1941 Unknown [id number] 2.16.840.1.097598.3.579.2.1 259 1941 Unknown [id number] 2.16.840.1.259761.3.579.2.1 259 1941 Unknown [id number] 2.16.840.1.081764.3.579.2.1 259 1941 Unknown [id number] 2.16.840.1.680432.3.579.2.1 259 Private Health Insurance [facility] [id number] Unknown [id number] 2.16.840.1.615678.3.579.2.5 31 Unknown [id number] 2.16.840.1.736110.3.579.2.5 31 Unknown [id number] 2.16.840.1.012601.3.579.2.5 31 Unknown [id number] 2.16.840.1.380842.3.579.2.5 31 Unknown [id number] 2.16.840.1.051711.3.579.2.5 31 Unknown [id number] 2.16.840.1.485817.3.579.2.5 31 Unknown [id number] 2.16.840.1.504321.3.579.2.5 31 Social History Date Type Detail Facility Start: 07-31-2020 End: 02-12-2022 Tobacco smoking status NHIS Ex-smoker (finding) [facility] Start: 1940 Sex Assigned At Female [facility] Start: 01-20-2023 End: 06-22-2023 Sex Assigned At [facility] Start: 03-02-2018 End: 02-12-2022 Tobacco use and exposure Smokeless tobacco non-user [facility] Start: 09-21-2021 End: 02-12-2022 Exposure to SARS-CoV-2 (event) Not sure [facility] History of tobacco use Current smoker [facility] Start: 11-12-2021 End: 09-23-2022 Tobacco smoking status CTIS Never smoked tobacco (finding) [facility] Start: 01-20-2023 End: 06-22-2023 History of Social function [facility] Adult Depression Screening Assessment 4 [facility] Start: 11-26-2019 Gender identity Identifies as female gender (finding) [facility] Start: 11-26-2019 Sexual orientation Heterosexual (finding) [facility] Start: 03-28-2023 Alcohol intake Current drinker of alcohol (finding) [facility] How often to you hav e a drink containing alcohol? Never [facility] Start: 12-12-2022 Alcohol Comment caffeine: coffee 1-2 cups a day [facility] Start: 1940 Sex Assigned At Not on file [facility] Medical Equipment Procedure Code Equipment Code Equipment Origin al Text Equipment Identifier Dates USE DIRECTED BEFORE MEALS AND BEDTIME Start: 08-28-2018 End: 09-29-2021 Comment on above: USE DIRECTED BEFO RE MEALS AND BEDTIME Goals Date Patient Goal Desired Activity /State Functional Status Date Assessment Result Facility 11-25-2021 Functional status Patient is Pro gressing Toward Baseline [facility] Work Phone: 11-11-2021 Functional status Patient is Pro gressing Toward Baseline [facility] Work Phone: 11-04-2021 Functional status Patient at Baseline [facility] Work Phone: Mental Status Date Assessment Result Facility 11-25-2021 Cognitive function Cognitive Sta tus Patient at Baseline [facility] Work Phone: 11-11-2021 Cognitive function Cognitive Sta tus Patient Not at Baseline [facility] Work Phone: 11-04-2021 Cognitive function Cognitive Sta tus Patient at Baseline [facility] Work Phone: Clinical Notes 12-10-2020 to 06-23-2023 Patient InstructionsGloria Perez APRN.PIPE MACHINE OPERATOR - 06/23/2023 3:00 PM EDTAddendum Note - Anu Hillman RN - 02/11/2023 2:59 PM ESTTelephone Encounter - Anu Hillman RN - 02/11/2023 2:57 PM EST Note Date & Type Note Facility 06-23-2023 Note HNO ID: [id number] Author: GLORIA PEREZ APRN.PIPE MACHINE OPERATOR Service: ? Author Type: Nurse Practitioner Type: Progress Notes Filed: 06/23/2023 20:12 Note Text: [facility] - FOLLOW UP EVALUATION Honey Rabago DO [address] [facility] [address] [facility] [address] Dear Honey Rabago DO: I had the pleasure of seeing Ms. Barker for follow-up today. As you know she is a 82 year old right-handed female with a history of Parkinson's disease since 2013. She is seen with her son. Subjective Previous Plan-01/20/2023 Visit: Parkinson's disease: Continue current medication schedule but discuss with the casting house laborer if you can take the Sinemet on [...] now less stre (more content not included)... [facility] 06-23-2023 Instructions Gloria Perez APRN.[facility] - 06/23/2023 3:54 PM EDT It was a pleasure to see you today. We addressed the following diagnoses: Parkinson's disease without dyskinesia, with fluctuating manifestations (hcc) My recommendations are as follows: 06/23/2023 Visit: Parkinson's disease: Change the timing of the Sinemet to that noted below. Please let me know if you change your mind about physical therapy and if the showroom sales assistant approves Depression and anxiety: Continue Venlafaxine (Effexor) [...] or you can send a message through Hundo. You can also now schedule and select appointments through Hundo. Gloria Perez APRN.PIPE MACHINE OPERATOR From the Parkinson's Foundation: [email or web address].parkinson.org What Can [...] make phlegm worse. documented in this encounter [facility] 06-23-2023 History of Presen t illness Narrative [facility] - FOLLOW UP EVALUATION Honey Rabago DO [address] [place] [address] [facility] [address] Dear Honey Rabago DO: I had the pleasure of seeing Ms. Barker for follow-up today. As you know she is a 82 year old right-handed female with a history of Parkinson's disease since 2013. She is seen with her son. Subjective Previous Plan-01/20/2023 Visit: Parkinson's disease: Continue current medication schedule but discuss with the casting house laborer if you can take the Sinemet on [...] 01/18/2023: [facility] MEDICATION, NON-DATABASE [...] mind about physical therapy and if the showroom sales assistant approves Depression and anxiety: Continue Venlafaxine (Effexor) [...] Mirtazapine 7.5mg 1 Level of service : 10349 (40-54 min). Time spent 53 min on the day of service, which included preparing to see the patient, mbof-vx-zicp patient care, completing clinical documentation, obtaining and/or reviewing separately obtained history, performing a medically appropriate examination, and counseling and educating the patient/family/caregiver. Gloria Perez APRN.PIPE MACHINE OPERATOR documented in this encounter [facility] 02-11-2023 Note HNO ID: [id number] Author: Nupur Main PA-C Service: ? Author Type: Physician Combination Building Inspector Type: Progress Notes Filed: 02/11/2023 4:48 PM Note Text: Reviewed chart - OK to refill; e-scripted to pharmacy as requested... [facility] 02-11-2023 Miscellaneous Notes Addended by: ANU HILLMAN on: 02/11/2023 02:59 PM Modules accepted: Orders Order pended to preferred pharmacy Last OV 01/20/23 Next OV 06/23/23 E- [id number] [place] [address] - [address] [facility] [phone] [id number] carbidopa-levodopa (SINEMET 25-100) 25-100 mg per tablet Patient son called in today in regards to medication and wanting to switch pharmacy, they were told the best way to do this would be to request a new prescription. They would like it sent to [facility] Thank you! documented in this encounter [facility] 01-20-2023 Note HNO ID: [id number] Author: Gloria Perez APRN.PIPE MACHINE OPERATOR Service: ? Author Type: Nurse Practitioner Type: Progress Notes Filed: 01/24/2023 12:36 PM Note Text: [facility] - FOLLOW UP EVALUATION Honey Rabago DO [address] [place] [address] [place] [address] Dear Honey Rabago DO: I had the [...] Use vaginally one (more content not included)... [facility] 01-20-2023 Instructions Gloria Perez APRN.CNP - 01/20/2023 3:46 PM EST It was a pleasure to see you today. We addressed the following diagnoses: Parkinson's disease without dyskinesia, with fluctuating manifestations (primary encounter diagnosis) Depression with anxiety My recommendations are as follows: 01/20/2023 Visit: Parkinson's disease: Continue current medication schedule but discuss with the casting house laborer if you can take the Sinemet on [...] or you can send a message through Hundo. You can also now schedule and select appointments through Hundo. Gloria Perez APRN.ELDON documented in this encounter [facility] 01-20-2023 History of Presen t illness Narrative [facility] - FOLLOW UP EVALUATION Honey Rabago DO [address] [place] [address] [place] [address] Dear Honey Rabago DO: I had the [...] 01/18/2023: Pt takes 2 tabs daily per [facility] MEDICATION, NON-DATABASE 750 mg two [...] she is going to discuss with the casting house laborer, see if she can take her Parkinson's [...] current medication schedule but discuss with the casting house laborer if you can take the Sinemet on [...] Mirtazapine 7.5mg 1 Level of service : 59783 (40-54 min). Time spent 47 min on the day of service, which included preparing to see the patient, ctrs-ik-xhrf patient care, completing clinical documentation, obtaining and/or reviewing separately obtained history, performing a medically appropriate examination, counseling and educating the patient/family/caregiver, and ordering medications, tests, or procedures. Gloria Perez APRN.PIPE MACHINE OPERATOR documented in this encounter [facility] 07-08-2022 Note HNO ID: [id number] Author: Gloria Perez APRN.PIPE MACHINE OPERATOR Service: ? Author Type: Nurse Practitioner Type: Progress Notes Filed: 07/11/2022 5:23 PM Note Text: [facility] - FOLLOW UP EVALUATION Honey Rabago DO, DO [address] [facility] [address] [facility] [address] Dear Honey Rabago DO, DO: I had [...] likes the staff. The director and director social service have to chip into cook since the chefs cook and this has been good from [...] lot online or on TV, $15/month on [employer] tickets (in past) Palliative Concerns: Caregiver burden: [...] Rash Rosuvastatin Calcium (more content not included)... [facility] 07-08-2022 Instructions Gloria Perez APRN.PIPE MACHINE OPERATOR - 07/08/2022 3:56 PM EDT It was [...] or you can send a message through Hundo. You can also now schedule and select appointments through Hundo. Gloria Perez APRN.ELDON documented in this encounter [facility] 07-08-2022 History of Presen t illness Narrative [facility] - FOLLOW UP EVALUATION Honey Rabago DO, DO [address] [place] [address] [facility] [address] Dear Honey Rabago DO, DO: I had [...] likes the staff. The director and director social service have to chip into cook since the [employer] and this has been good from a [...] lot online or on TV, $15/month on [employer] tickets (in past) Palliative Concerns: Caregiver burden: [...] or around: 01/07/23 Level of service : 32608 (40-54 min). Time spent 47 min on the day of service, which included preparing to see the patient, admy-ki-lppu patient care, completing clinical documentation, obtaining and/or reviewing separately obtained history, performing a medically appropriate examination, counseling and educating the patient/family/caregiver, and ordering medications, tests, or procedures. Gloria Perez APRN.ELDON documented in this encounter [facility] 04-13-2022 Miscellaneous Notes Order pended [...] patient. Belen Tim documented in this encounter [facility] 02-15-2022 Miscellaneous Notes I tried calling, Gina, the outreach and education social worker in her primary care provider's office. I left a message requesting a call back. AYO Chicas documented in this encounter [facility] 12-15-2021 Evaluation note Encounter Date [...] Please call patient's son Jose David at [phone] with results. Spoke to Jose David and discussed above. Spoke with KORTNEY Albert ([phone] ) and given above instructions. Patient may get home testing for INRs set-up, will inform clinic if home testing begins. Home Health Order: Draw PT/INR on 01-04-22 Seen by Justin Nicolas PharmD [facility] Other 09-20-2022 Evaluation note* Encounter Date Diagnosis [...] discharged on 11/25 from inpatient rehab at [facility] with above plan and therapeutic INRs. Follow up in 2 weeks. Please call patient's son Jose David at [phone] with results. Spoke to Jose David and discussed above. Spoke with PRERNA Albert ([phone]) and given above instructions. Patient may get home testing for INRs set-up, will inform clinic if home testing begins. Home Health Order: Draw PT/INR on 12-14-21 Seen by Justin Nicolas PharmD [facility] Other 09-14-2022 Discharge summary Author Alcides Moya [facility] November 25, 2021 12:57pm Note Date/Time November 25, 2021 8:50am [facility] [address] [place] [address] Discharge Summary Signed Patient: Alton Barker MR#: [id number] : 1940 Acct:[id number] Age/Sex: 81 / F Adm Date: 2 Loc: Room: 2Y3765-[address]: Alcides Moya MD Copies to: [...] 04:43 11/25/21 04:43 Narrative: General: cooperative, comfortable HENME Head: normal to inspection Eyes General: appearance [...] Plan Discharge Plan Patient Disposition: Home Health [facility] Activity: Ambulate as Tolerated Diet: Regular Additional [...] PT/INR (dx:Z79.01) on Tuesday11/30/21, with results to [facility], who will continue to manage your Coumadin dosing, as they were prior to your hospitalization. -Coumadin dosing: Take 2mg every day EXCEPT Tuesday and . Take 1mg on Tuesday and . Your Home Health agency is [facility] ( ). They will usually [...] signed by Alcides Moya MD> 11/25/21 1257 [facility] Work Phone: 1(300) 728-551309-12-2022 Progress note Author Alcides Moya [facility] November 23, 2021 3:01pm Note Date/Time November 23, 2021 1:36pm [facility] [address] [place] [address] Physiatry(Rehab) Progress Note Signed Patient: Alton Barker MR#: [id number] : 1940 Acct:[id number] Age/Sex: 81 / F Adm Date: 2 Loc: Room: 9T9082-0 Type: ADM IN Attending Dr: Alcides Moya MD Copies to: ~ <Elham Mendoza APRN - Last Filed: 11/23/21 14:05> Date of Service: 11/23/2021 Subjective <Elham Mendoza APRN - Last Filed: 11/23/21 14:05> Subjective Narrative: Ms. Barker is a 81 year old female With history of Parkinson's disease, followed at the [facility], admitted to the rehabilitation unit with [...] it finally took effect, it was already grinder and plater. I reminded that she can take her [...] mg 11/11/21 14:29 Bisacodyl 10 Mg Supp.Rect HI 11/11/22 14:28 DAILY PRN Constipation Carbidopa/Levodopa 1.5 [...] 14:29 Docusate Enema 283 Mg/5 Ml Enema HI 11/11/22 14:28 DAILY PRN Constipation Lactulose 30 [...] Allied health note review, nursing note review, workers compensation consultant note review, discussion with nursing and case management, and more than 50% of my time was spent on counseling and coordination of care, time spent 18 minutes Patient was personally seen by me, Dr. Moya, on the day of encounter, reviewed the history and the relevant portions of the chart, including current orders, allied health and workers compensation consultant notes, labs/imaging and performed day elements [...] signed by Alcides Moya MD> 11/23/21 1501 [facility] Work Phone: 1(546) 799-962809-12-2022 Progress note Author Alcides Moya [facility] November 23, 2021 2:39pm Note Date/Time November 20, 2021 1:19pm [facility] [address] [place] [address] Physiatry(Rehab) Progress Note Signed Patient: Alton Barker MR#: [id number] : 1940 Acct:[id number] Age/Sex: 81 / F Adm Date: 2 Loc: Room: [address] [place] [address] Type: ADM IN Attending Dr: Alcides Moya MD Copies to: ~ <Elham Mendoza APRN - Last Filed: 11/20/21 13:21> Date of Service: 11/20/2021 Subjective <Elham Mendoza APRN - Last Filed: 11/20/21 13:21> Subjective Narrative: Ms. Barker is a 81 year old female With history of Parkinson's disease, followed at the [facility], admitted to the rehabilitation unit with [...] mg 11/11/21 14:29 Bisacodyl 10 Mg Supp.Rect HI 11/11/22 14:28 DAILY PRN Constipation Carbidopa/Levodopa 1.5 [...] 14:29 Docusate Enema 283 Mg/5 Ml Enema HI 11/11/22 14:28 DAILY PRN Constipation Lactulose 30 [...] Allied health note review, nursing note review, workers compensation consultant note review, discussion with nursing and case management, and more than 50% of my time was spent on counseling and coordination of care, time spent 16 minutes Patient was personally seen by me, Dr. Moya, on the day of encounter, reviewed the history and the relevant portions of the chart, including current orders, allied health and workers compensation consultant notes, labs/imaging and performed day elements of exam and I formulated the plan of care and facilitated the medical decision making and confirmed the nurse practitioner note, as above Documented By: Elham Mendoza APRN 11/20/21 1 310 Signed By: <Electronically signed by HEIDI Mendoza> 11/20/21 1321 <Electronically signed by Alcides Moya MD> 11/23/21 3175 [facility] Work Phone: 1(857) 987-854109-08-2022 Progress note Author Rosa Maria Odell [facility] November 19, 2021 5:37pm Note Date/Time November 19, 2021 4:57pm [facility] [address] [place] [address] Hospitalist Progress Note Signed Patient: Alton Barker MR#: [id number] : 1940 Acct:[id number] Age/Sex: 81 / F Adm Date: 2 Loc: Room: 1T5805-4 Type: ADM IN Attending Dr: Alcides Moya [...] mg 11/11/21 14:29 Bisacodyl 10 Mg Supp.Rect HI 11/11/22 14:28 DAILY PRN Constipation Carbidopa/Levodopa 1.5 [...] 14:29 Docusate Enema 283 Mg/5 Ml Enema HI 11/11/22 14:28 DAILY PRN Constipation Lactulose 30 [...] by Rosa Maria Odell MD> 11/19/21 1737 [facility] Work Phone: 1(643) 106-482109-07-2022 Progress note Author Alcides Moya [facility] November 18, 2021 12:40pm Note Date/Time November 17, 2021 10:56am [facility] [address] [place] [address] Physiatry(Rehab) Progress Note Signed Patient: Alton Barker MR#: [id number] : 1940 Acct:[id number] Age/Sex: 81 / F Adm Date: 2 Loc: Room: 1N4964-3 Type: ADM IN Attending Dr: Alcides Moya [...] mg 11/11/21 14:29 Bisacodyl 10 Mg Supp.Rect HI 11/11/22 14:28 DAILY PRN Constipation Carbidopa/Levodopa 1.5 [...] 14:29 Docusate Enema 283 Mg/5 Ml Enema HI 11/11/22 14:28 DAILY PRN Constipation Lactulose 30 [...] Allied health note review, nursing note review, workers compensation consultant note review, discussion with nursing and case management, and more than 50% of my time was spent on counseling and coordination of care, time spent 23 minutes Patient was personally seen by me, Dr. Moya, on the day of encounter, reviewed the history and the relevant portions of the chart, including current orders, allied health and workers compensation consultant notes, labs/imaging and performed day elements [...] by Alcides Moya MD> 11/18/21 1240 [facility] Work Phone: 1(976) 499-631409-03-2022 Progress note Author Alcides Moya [facility] November 14, 2021 8:45am Note Date/Time November 13, 2021 3:25pm [facility] [address] [place] [address] Physiatry(Rehab) Progress Note Signed Patient: Alton Barker MR#: [id number] : 1940 Acct:[id number] Age/Sex: 81 / F Adm Date: 2 Loc: Room: 3U3259-2 Type: ADM IN Attending Dr: Alcides Moya MD Copies to: ~ Date of Service: 11/13/2021 Subjective Subjective Narrative: Ms. Barker is a 81 year old female With history of Parkinson's disease, followed at the [facility], admitted to the rehabilitation unit with [...] mg 11/11/21 14:29 Bisacodyl 10 Mg Supp.Rect HI 11/11/22 14:28 DAILY PRN Constipation Carbidopa/Levodopa 1.5 [...] 14:29 Docusate Enema 283 Mg/5 Ml Enema HI 11/11/22 14:28 DAILY PRN Constipation Lactulose 30 [...] Acute (10) Chronic anticoagulation: Code(s): Z79.01 - rodent exterminator (current) use of anticoagulants Status: Acute (11) Urinary tract infection: Code(s): N39.0 - Urinary tract infection, site not specified Status: Acute (12) Back pain: Code(s): M54.9 - Dorsalgia, unspecified Status: Acute Plan 81-year-old female with history of Parkinson's disease, follows at the [facility], admitted to the rehabilitation unit [...] and self-care. Discharge planning:Insurance denial overturned via dimi-qs-wulm. 2 weeks approved. Plan for discharge home November 25 Plan: I completed a substantive portion of this encounter, the medical decision makingportion of this note in its entirety, including Allied health note review, nursing note review, workers compensation consultant note review, discussion with nursing and case management, and more than 50% of my time was spent on counseling and coordination of care, time spent 26minutes Patient was personally seen by me, Dr. Moya, on the day of encounter, reviewed the history and the relevant portions of the chart, including current orders, allied health and workers compensation consultant notes, labs/imaging and performed day elements of exam and I formulated the plan of care and facilitated the medical decision making and confirmed the nurse practitioner note, as above Documented By: Alcides Moya MD 11/13/21 1525 Signed By: <Electronically signed by Alcides Moya MD> 11/14/21 0845 [facility] Work Phone: 1(326) 710-821809-01-2022 Consult note Author Justice De Oliveira [facility] November 12, 2021 5:09pm Note Date/Time November 12, 2021 3:21pm [facility] [address] [place] [address] Hospitalist Consult Note Signed Patient: Alton Barker MR#: [id number] : 1940 Acct:[id number] Age/Sex: 81 / F Adm Date: 2 Loc: Room: 3V1068-0 Type: ADM IN Attending Dr: Alcides Moya [...] incontinence. Patient with underlying Parkinson's follows with [facility] neurology and movement disorder clinicians there. [...] negative unless noted below or in HPI [facility] Attestation Statement: The following information was [...] mg-vit E 90 mg-zinc 40 mg-copper 1 ol-qjhszb-ricppg capsule (PreserVision AREDS-2) 1 tab PO BID [...] mg 11/11/21 14:29 Bisacodyl 10 Mg Supp.Rect HI 11/11/22 14:28 DAILY PRN Constipation Carbidopa/Levodopa 1.5 [...] 14:29 Docusate Enema 283 Mg/5 Ml Enema HI 11/11/22 14:28 DAILY PRN Constipation Lactulose 30 [...] % (Auto) 45.9, Lymph % (Auto) 39.7, [place] % (Auto) 10.1, Eos % (Auto) 3.8, Baso % (Auto) 0.5, Neut # (Auto) 2.3, Lymph # (Auto) 2.0, [place] # (Auto) 0.5, Eos # (Auto) 0.2, [...] signed by Justice De Oliveira DO> 11/12/21 6056 [facility] Work Phone: 1(189) 945-879108-31-2022 History and physical note Author Alcides Moya [facility] November 11, 2021 6:55pm Note Date/Time November 11, 2021 1: 26pm [facility] [address] [place] [address] Physiatry (Rehab) H&P Signed Patient: Alton Barker MR#: [id number] : 1940 Acct:[id number] Age/Sex: 81 / F Adm Date: 2 Loc: Room: [address] [place] [address] Type: ADM IN Attending Dr: Alcides Moya MD Copies to: MD Honey Pate DO~ Date of Service: 11/11/2021 HPI The patient was seen and examined on: 11/11/21 Etiologic Diagnosis/Impairment Group: 08.9 History of Present Illness: Ms. Barker is a 81 year old female With history of Parkinson's disease, followed at the [facility], admitted to the rehabilitation unit with [...] Lives at home with her son and hyrqedac-ok-obg. Chronic conditions are otherwise stable with current [...] mg-vit E 90 mg-zinc 40 mg-copper 1 eo-lvpftl-nhhzdj capsule (PreserVision AREDS-2) 1 tab PO BID [...] days Expected Discharge Destination: Home Rehabilitation [facility]: 08.9 Primary Diagnosis: L1 compression fracture h/o [...] 24 hour daily monitoring and intervention from Network Diagnostic Support Specialist as well as other consulting physicians including internal medicine as well as 24 hour daily hardware manager nursing - for medical safe / optimal [...] Acute (10) Chronic anticoagulation: Code(s): Z79.01 - rodent exterminator (current) use of anticoagulants Status: Acute (11) Urinary tract infection: Code(s): N39.0 - Urinary tract infection, site not specified Status: Acute (12) Back pain: Code(s): M54.9 - Dorsalgia, unspecified Status: Acute Plan 81-year-old female with history of Parkinson's disease, follows at the [facility], admitted to the rehabilitation unit with [...] and self-care. Discharge planning:Insurance denial overturned via [id number]. Plan for discharge home in 1 to 2 weeks. Plan: I completed a substantive portion of this encounter, the medical decision making portion of this note in its entirety, including Allied health note review, nursing note review, workers compensation consultant note review, discussion with nursing and case management, and more than 50% of my time was spent on counseling and coordination of care, time spent 65 minutes Patient was personally seen by me, Dr. Moya, on the day of encounter, reviewed the history and the relevant portions of the chart, including current orders, allied health and workers compensation consultant notes, labs/imaging and performed day elements of exam and I formulated the plan of care and facilitated the medical decision making and confirmed the nurse practitioner note, as above Documented By: Alcides Moya MD 11/11/211853 Signed By: <Electronically signed by Alcides Moya MD> 11/11/211854 [facility] Work Phone: 1(996) 303-225108-25-2022 Miscellaneous Notes* Telephone Encounter - Gloria Perez [...] to in-health rehab. Currently she is at [facility] in [place] - Room 3009 Bed. 2. * Telephone Encounter - Lyly Pedersen - 11/05/2021 1:04 PM EDT ----- Message from Gloria Perez APRN.PIPE MACHINE OPERATOR sent at 11/03/2021 8:01 AM EDT [...] know. Thank you, Gloria [facility] History and physical note Author Enrrique Mota [facility] November 04, 2021 8:55pm Note Date/Time November 04, 2021 6: 26pm [facility] [address] [place] [address] Hospitalist H&P Signed Patient: Alton Barker MR#: [id number] : 1940 Acct:[id number] Age/Sex: 81 / F Adm Date: 2 Loc: Room: [address] [place] [address] Type: ADM [...] mg-vit E 90 mg-zinc 40 mg-copper 1 qh-fmkwnq-ahdrej capsule (PreserVision AREDS-2) 1 tab PO BID [...] % (Auto) 20.3 % (.) 11/04/21 16:40 [place] % (Auto) 9.7 % (.) 11/04/21 16:40 Eos % (Auto) 1.7 % (.) 11/04/21 16:40 Baso % (Auto) 0.6 % (.) 11/04/21 16:40 Neut # (Auto) 5.3 x10E3/uL (1.8-7.7) 11/04/21 16:40 Lymph # (Auto) 1.6 x10E3/uL (1.00-4.8) 11/04/21 16:40 [place] # (Auto) 0.8 x10E3/uL (0.0-0.8) 11/04/21 16:40 [...] <Electronically signed by Enrrique Mota MD> 11/04/212054 [facility] Work Phone: 1(626) 263-935108-11-2022 Evaluation note* Encounter Date Diagnosis Assessment Notes [...] 2 weeks. Seen by Justin Nicolas PharmD [facility] Other 07-21-2022 Instructions* Patient Instructions* Gloria Perez [...] or you can send a message through Hundo. You can also now schedule and select appointments through Hundo. Gloria Perez APRN.ELDON documented in [facility] encounter[facility] History of Present illness Narrative* Gloria Perez APRN.CNP - 10/01/2021 12:13 PM EDT [facility] - FOLLOW UP EVALUATION Honey Rabago, DO, DO [address] [facility] [address] I had the pleasure of seeing Ms. [...] loss is noticeable but LTM is good. [place] Cognitive Assessment (MoCA): 29 (02/03/2021 10:50 AM) [...] is now living with her son and wtsvajfv-fk-ksc. She has not been taking her medication [...] 1.5 1.5 Effexor Level of service : [id number] (40-54 min). Time spent 49 (12:14pm-1:03pm) min on the day of service, which included preparing to see the patient, btmb-nb-zwgp patient care, completing clinical documentation, obtaining and/or reviewing separately obtained history, performing a medically appropriate examination, counseling and educating the patient/family/caregiver and ordering medications, tests, or procedures. Gloria Perez APRN.PIPE MACHINE OPERATOR documented in this encounterSumma [facility]07-19-2022 Evaluation note* Encounter Date Diagnosis [...] 3 weeks. Seen by Juliana Ozuna RN [facility] Other 06-28-2022 NoteHISTORY: Bone density screening. COMPARISON: [...] and signed by Delgado Moya on 09/08/[address] [place], [place] 1664606-15-2022 Evaluation note* Encounter Date Diagnosis Assessment Notes [...] significant other. Seen by Juliana Ozuna RN [place] [facility] Other 05-25-2022 Evaluation note* Encounter Date Diagnosis [...] take as instructed above. Notify [facility], Anticoagulation [facility] [phone] option 5 for the following: -Call immediately [...] person tells you to adjust your warfarin. [facility] Other 05-09-2022 Evaluation note* Encounter Date Diagnosis [...] significant other. Seen by Justin Nicolas PharmD [facility] Other 03-30-2022 Evaluation note* Encounter Date Diagnosis [...] Seen by Anu Alva RP/Anuradha Case LPN [facility] [employer] Other 03-15-2022 Evaluation note* Encounter Date Diagnosis [...] voiced understanding. Seen by Anu Alva michelle [facility] [facility] Other 01-12-2022 Evaluation note* Encounter Date Diagnosis [...] 3 weeks. Seen by Justin Nicolas PharmD [facility] [employer] Other 12-15-2021 Evaluation note* Encounter Date Diagnosis [...] 4 weeks. Seen by Juliana Ozuna RN [facility] Other 11-17-2021 Evaluation note* Encounter Date Diagnosis [...] 4 weeks. Seen by Juliana Ozuna RN [facility] Other 09-29-2021 Evaluation note* Encounter Date Diagnosis [...] 4 weeks. Seen by Justin Nicolas PharmD [facility] Other Consult note Author Jairo Benosn [facility] November 05, 2021 3:10pm Note Date/Time November 05, 2021 3: 10pm [facility] [address] [place] [address] Psychiatry Consult Note Signed Patient: Alton Barker MR#: [id number] : 1940 Acct:[id number] Age/Sex: 81 / F Adm Date: 2 Loc: Room: [address] [place] [address] Type : [...] mg-vit E 90 mg-zinc 40 mg-copper 1 hw-zanozv-qreroc capsule (PreserVision AREDS-2) 1 tab PO BID [...] Cloudy A Urine pH 5.5 Ur Specific [place] 1.029 Urine Protein 30 H Urine [...] signed by Jairo Benson MD> 11/05/21 1510 [facility] Work Phone: Consult note Author Oswaldo Almonte [facility] November 06, 2021 11:33am Note Date/Time November 06, 2021 11 :33am [facility] [address] [place] [address] Neurosurgery Consult Note Signed Patient: Alton Barker MR#: [id number] : 1940 Acct:[id number] Age/Sex: 81 / F Adm Date: 2 Loc: Room: [address] [place] [address] Type: ADM [...] mg-vit E 90 mg-zinc 40 mg-copper 1 yf-gsluzn-gnnzkp capsule (PreserVision AREDS-2) 1 tab PO BID [...] Cloudy A, Urine pH 5.5, Ur Specific [place] 1.029, Urine Protein 30 H, Urine [...] % (Auto) 67.7, Lymph % (Auto) 20.3, [place] % (Auto) 9.7, Eos % (Auto) 1.7, Baso % (Auto) 0.6, Neut # (Auto) 5.3, Lymph # (Auto) 1.6, [place] # (Auto) 0.8, Eos # (Auto) 0.1, [...] <Electronically signed by MD Oswaldo Almonte> 11/06/21 8942 [facility] Work Phone: Discharge summary Author Gaye Claire [facility] November 11, 2021 5:21pm Note Date/Time November 10, 2021 11 :33am [facility] [address] [place] [address] Discharge Summary Signed Patient: Alton Barker MR#: [id number] : 1940 Acct:[id number] Age/Sex: 81 / F Adm Date: 2 Loc: Room: [address] [place] [address]: Gaye Claire MD Copies to: Tonya Suh, [facility]- MD Honey Collado,DO~ Providers Date of Admission: [...] movement disorderspecialist Gloria Lal nurse practitioner at [facility] routinely. She was continued on her [...] Discharge Plan Discharge Plan Patient Disposition: Rehab [facility] Activity: No Activity Restriction Diet: Regular Additional [...] signed by Gaye Claire MD> 11/11/21 1721 [facility] Work Phone: evaluation noteNo assessment information available [facility] noteNo [facility] Other evaluation note* Diagnosis Recurrent episodes of unresponsiveness- Primary Parkinson's disease (HCC) Paralysis agitans Depression with anxiety Dysthymic disorder Fatigue, unspecified type Excessive daytime sleepiness documented in this encounter [facility]* Diagnosis Onset Date Resolution [...] disease acute Urinary tract infection acut e [facility] Work Phone: Evaluation note* Diagnosis Onset [...] cute Parkinsons disease acute [facility] Work Phone: Evaluation note* Diagnosis Parkinson's disease (HCC) Paralysis agitans documented in this encounter [facility] Center[facility]* Diagnosis Parkinson's disease (HCC)- Primary Paralysis agitans Depression with anxiety Dysthymic disorder documented in this encounter [facility]* Diagnosis Parkinson's disease without dyskinesia, with fluctuating manifestations- Primary Depression with anxiety Dysthymic disorder documented in this encounter [facility]* Diagnosis Parkinson's disease Paralysis agitans documented in this encounter [facility] CenterEvaludelaware hospital for the chronically ill note* Diagnosis Depression with anxiety- Primary Dysthymic disorder Parkinson's disease without dyskinesia, with fluctuating manifestations (HCC) Sialorrhea Disturbance of salivary secretion documented in this encounter [facility] general Narrative - Reported* Type Description Date Medical History diabetes mellitus Medical History coronary artery disease Medical History Hypothyroidism Medical History Esophageal reflux Medical History depression Medical History essential tremor Surgical History tonsillectomy Surgical History cholecystectomy Surgical History appendectomy Surgical History hemorrhoidectomy Surgical History colonoscopy Surgical History heart catheterization Hospitalization History see above [facility] [employer] Other History general Narrative - [facility] [employer] Other Progress note Author Enrrique Mota [facility] November 06, 2021 7:31am Note Date/Time November 05, 2021 3: 01pm [facility] [address] [place] [address] Hospitalist Progress Note Signed Patient: Alton Barker MR#: [id number] : 1940 Acct:[id number] Age/Sex: 81 / F Adm Date: 2 Loc: Room: [address] [place] [address] Type: ADM INOo Attending Dr: Enrrique Mota MD Copies to: ~ Date of Service: 11/05/2021 Subjective Subjective Narrative: Patient seen and examined, sitting up in chair at time of exam. She is pleasant, mildly confused. She is oriented to self, knows she is at [facility]. Initially states year is 1920, then corrects [...] where she lives with her son and kawssdno-oz-zfy Impaired mobility and ADLs Parkinson's disease ? Patient follows with neurology, Dr. Lal, and movement disorder specialist,Gloria Lal CNP, at [facility] ? Continue Sinemet ? PT/OT eval's [...] <Electronically signed by Enrrique Mota MD> 11/06/21 0706 [facility] Work Phone: Progress note Author Enrrique Mota [facility] November 07, 2021 4:52pm Note Date/Time November 06, 2021 11 :01am [facility] [address] [place] [address] Hospitalist Progress Note Signed Patient: Alton Barker MR#: [id number] : 1940 Acct:[id number] Age/Sex: 81 / F Adm Date: 2 Loc: Room: [address] [place] [address] Type: ADM INOo Attending Dr: Enrrique Mota MD Copies to: ~ Date of Service: 11/06/2021 Subjective Subjective Narrative: Patient is seen and examined. She is sitting up in bed at time of exam. When asked how she is feeling, she states not well, I am confused . She has howeveroriented to self, knows she is at [facility], and was able to tell me events surrounding her admission. She showed me a paper with retirement facilities listed on it, and indicated that [...] where she lives with her son and dldyumeh-ms-sbv Impaired mobility and ADLs Parkinson's disease ? Patient follows with neurology, Dr. Lal, and movement disorder specialist,Gloria Lal, ELDON, at [facility] ? Continue Sinemet ? PT/OT recommending [...] <Electronically signed by Enrrique Mota MD> 11/07/21 1653 [facility] Work Phone: Progress note Author Enrrique Mota [facility] November 07, 2021 4:47pm Note Date/Time November 07, 2021 11 :18am [facility] [address] [place] [address] Hospitalist Progress Note Signed Patient: Alton Barker MR#: [id number] : 1940 Acct:[id number] Age/Sex: 81 / F Adm Date: 2 Loc: Room: [address] [place] [address] Type: ADM [...] where she lives with her son and lottkuue-ol-ngp Impaired mobility and ADLs Parkinson's disease ? Patient follows with neurology, Dr. Lal, and movement disorder specialist,Gloria Lal, ELDON, at [facility] ? Continue Sinemet ? PT/OT recommending [...] <Electronically signed by Enrrique Mota MD> 11/07/21 3872 [facility] Work Phone: Progress note Author Enrrique Mota [facility] November 08, 2021 5:13pm Note Date/Time November 08, 2021 10 :47am [facility] [address] [place] [address] Hospitalist Progress Note Signed Patient: Alton Barker MR#: [id number] : 1940 Acct:[id number] Age/Sex: 81 / F Adm Date: 2 Loc: Room: [address] [place] [address] Type: ADM [...] where she lives with her son and owipnfsg-td-bis Impaired mobility and ADLs Parkinson's disease ? Patient follows with neurology, Dr. Lal, and movement disorder specialist,Gloria Lal, ELDON, at [facility] ? Continue Sinemet ? PT/OT recommending [...] signed by Enrrique Mota MD> 11/08/21 1713 [facility] Work Phone: Progress note Author Gaye Claire [facility] November 10, 2021 4:37pm Note Date/Time November 09, 2021 1: 11pm [facility] [address] [place] [address] Hospitalist Progress Note Signed Patient: Alton Barker MR#: [id number] : 1940 Acct:[id number] Age/Sex: 81 / F Adm Date: 2 Loc: Room: 2S0017-9 Type: ADM INOo Attending Dr: Gaye Claire [...] movement disorder specialist, Gloria Lal CNP at [facility] ?Continue Sinemet UTI Ecoli ?ceftriaxone initiated 11/06, change to Cefdinir at [place] for 7 day total course last dose [...] signed by Gaye Claire MD> 11/10/21 1637 [facility] Work Phone: Progress note Author Gaye Claire [facility] November 11, 2021 5:21pm Note Date/Time November 10, 2021 5: 36pm [facility] [address] [place] [address] Hospitalist Progress Note Signed Patient: Alton Barker MR#: [id number] : 1940 Acct:[id number] Age/Sex: 81 / F Adm Date: 2 Loc: Room: [address] [place] [address] Type: DIS INOo Attending Dr: Gaye Claire [...] movement disorder specialist, Gloria Lal CNP at [facility] ?Continue Sinemet UTI Ecoli ?ceftriaxone [...] signed by Gaye Claire MD> 11/11/21 1721 [facility] Work Phone: Reason for referral (narrative)* Outpatient Procedure (Routine) - Pending Review Specialty Diagnoses / Procedures Referred By Contact Referred To Contact [facility]UR[facility] [place] Diagnoses Recurrent episodes of unresponsiveness Procedures EPIL EEG ROUTINE ELECTROENCEPHALOGRAM REC COMA/SLEEP ONLY Gloria Perez APRN.CNP [address] [place] [address] [place] [id number] [place] [id number] Referral ID Status Reason Start Date Expiration Date Visits Requested Visits Authorized [id number] Pending Review Auto-Generat ed Referral 10/04/2021 10/04/2022 1 1 [facility] Summary Purpose Family History No [...] (HCC) Procedures PROVIDER ORDERED FOLLOW UP OFFICE/OUTPATIENT [facility] 60-74 MINUTES Gloria Perez APRN.PIPE MACHINE OPERATOR [address] [place] [address] Referral ID Status Reason Start Date Expiration Date Visits Requested Visits Authorized [id number] Pending Review PCP Requested Referral 3 07/08/2023 1 1 Additional Source Comments INFORMATION SOURCE (unrecogn ized section and content) DATE CREATED AUTHOR 11/02/2017 [employer] DATE CREATED AUTHOR AUTHOR'S ORGANIZ ATION 09/09/2021 [facility] dical Specialist DATE CREATED AUTHOR AUTHOR'S ORGANIZ ATION 06/01/2022 [facility] DATE CREATED AUTHOR AUTHOR'S ORGANIZ ATION 07/23/2022 [facility] DATE CREATED AUTHOR AUTHOR'S ORGANIZ ATION 06/25/2023 [facility] DATE CREATED AUTHOR AUTHOR'S ORGANIZ ATION 08/20/2023 [facility] dical Specialists EPIC Goals (unrecognized section and [...] disease Procedures PROVIDER ORDERED FOLLOW UP OFFICE/OUTPATIENT [facility] 60-74 MINUTES Gloria Perez, HEIDI.PIPE MACHINE OPERATOR [address] [place] [address] Referral ID Status Reason Start Date Expiration Date Visits Requested Visits Authorized [id number] Pending Review PCP Requested Referral 3 07/08/2023 [...] or prosecute any alcohol or drug abuse patient.[facility] CenterIn the event this information is protected by the Federal Confidentiality of Alcohol and Drug Abuse Patient Records regulations: The Federal rules restrict any use of the information to criminally investigate or prosecute any alcohol or drug abuse patient.[facility] CenterIn the event this information is protected by the Federal Confidentiality of Alcohol and Drug Abuse Patient Records regulations: The Federal rules restrict any use of the information to criminally investigate or prosecute any alcohol or drug abuse patient.[facility] CenterIn the event this information is protected by the Federal Confidentiality of Alcohol and Drug Abuse Patient Records regulations: The Federal rules restrict any use of the information to criminally investigate or prosecute any alcohol or drug abuse patient.[facility] CenterIn the event this information is protected by the Federal Confidentiality of Alcohol and Drug Abuse Patient Records regulations: The Federal rules restrict any use of the information to criminally investigate or prosecute any alcohol or drug abuse patient.[facility] CenterIn the event this information is protected by the Federal Confidentiality of Alcohol and Drug Abuse Patient Records regulations: The Federal rules restrict any use of the information to criminally investigate or prosecute any alcohol or drug abuse patient.[facility] CenterIn the event this information is protected by the Federal Confidentiality of Alcohol and Drug Abuse Patient Records regulations: The Federal rules restrict any use of the information to criminally investigate or prosecute any alcohol or drug abuse patient.[facility] CenterIn the event this information is protected by the Federal Confidentiality of Alcohol and Drug Abuse Patient Records regulations: The Federal rules restrict any use of the information to criminally investigate or prosecute any alcohol or drug abuse patient.[facility] CenterIn the event this information is protected by the Federal Confidentiality of Alcohol and Drug Abuse Patient Records regulations: The Federal rules restrict any use of the information to criminally investigate or prosecute any alcohol or drug abuse patient.[facility] CenterIn the event this information is protected by the Federal Confidentiality of Alcohol and Drug Abuse Patient Records regulations: The Federal rules restrict any use of the information to criminally investigate or prosecute any alcohol or drug abuse patient.[facility] Care Teams (unrecognized sec tion [...] MD Other Provider Active Faustina Barr , STRAPPING MACHINE TENDER-C Other Provider Active Valente Lauren MD Other [...] Active Gaye Claire MD Attending Provider Active Italian Lecturer Relationship Specialty Start Date End Date Honey Rabago, DO [address] [place] [address] PCP - General 02/16/05 Italian Lecturer Relationship Specialty Start Date End Date Honey Rabago, DO [address] [place] [address] PCP - General 02/16/05 Italian Lecturer Relationship Specialty Start Date End Date Honey Rabago, DO [address] [place] [address] PCP - General 02/16/05 Team Status: Active [...] MD Other Provider Active Chery Coronado , SALES AGENT [employer] Other Provider Active José Miguel Tellez , DO Other Provider Active George Chan MD Other Provider Active Justice De Oliveira , DO Other Provider Active Enrrique Mota MD Other Provider Active Rosa Maria Odell MD Other Provider Active Tonya Suh , ANP- Other Provider Active Juan Wallace MD Other Provider Active eJrson Walker MD Other Provider Active Gaye Claire MD Other Provider Active Queta Mclain MD Other Provider Active Rd Blackmon MD Other Provider Active Anibal Gallagher MD Other Provider Active Damion Thapa MD Other Provider Active Faustina Barr , STRAPPING MACHINE TENDER-C Other Provider Active Valente Lauren MD Other [...] Primary Care Provider, Attending Paula mock Active Italian Lecturer Relationship Specialty Start Date End Date Honey Rabago, DO [address] [place] [address] PCP - General 02/16/05 Italian Lecturer Relationship Specialty Start Date End Date Honey Rabago, DO [address] [place] [address] PCP - General 02/16/05 Italian Lecturer Relationship Specialty Start Date End Date Honey Rabago, DO [address] [place] [address] PCP - General 02/16/05 Italian Lecturer Relationship Specialty Start Date End Date Honey Rabago, DO [address] [place] [address] PCP - General 02/16/05 Italian Lecturer Relationship Specialty Start Date End Date Honey Rabago, DO [address] [place] [address] PCP - General 02/16/05 Italian Lecturer Relationship Specialty Start Date End Date Honey Rabago DO [address] [place] [address] PCP - General 02/16/05 Italian Lecturer Relationship Specialty Start Date End Date Honey Rabago, PCP - General Internal Medicine 07/28/22 Italian Lecturer Relationship Specialty Start Date End Date Honey Rabago DO [address] [place] [address] PCP - General 02/16/05 FOR RECORDS PERTAINING [...] BE BASED ON THE PRIMARY CLINICAL RECORDS. [facility]. provides no warranty or guarantee of the accuracy or completeness of information in this document.
[2023-10-12 08:52] LABS: Bilirubin Urine NEGATIVE (NEGATIVE); Blood Urine NEGATIVE (NEGATIVE); Clarity Urine CLOUDY (CLEAR); Color Urine LT. YELLOW (YELLOW); Glucose Urine UA 250 mg/dL (NEGATIVE); Ketones Urine NEGATIVE (NEGATIVE); Leukocyte Esterase Urine NEGATIVE (NEGATIVE); Nitrite Urine NEGATIVE (NEGATIVE); Protein Urine NEGATIVE (NEG/TRACE); Specific Gravity Urine 1.025 (1.005-1.025); Urobilinogen Urine 0.2 EU/dL (0.2-1.0)
[2023-10-12 09:05] LABS: Urine Microscopic Indicated NO
== END 2023-10-11 10:16 | disposition home or self-care (01) ==
LOC: LAB 10:15
PROVIDERS: PCP Internal Medicine; Visit Provider Internal Medicine
DX: R30.0 Dysuria (principal)
CPT/HCPCS: 81003

== ENCOUNTER 2023-10-18 12:30 | Outpatient (OUT) | payer MEDICARE, SELFPAY ==
[2023-10-18 12:40] LABS: Hemoglobin 11.9 g/dL (12.0-16.0)
--- NOTE | 2023-10-18 13:50 | RT_ITS ---
[facility] Test Date: 2023-10-18 Pat Name: ALTON SALMERON Department: Room: - Gender: Female [employer] [place]: Tomas Ott RRT : 1940 Requested By: Albin Sherman Order Number: [id number] [place] MD: Albin Sherman Interpretive Statements Pulmonary function testing was completed according to ATS criteria. Findings were considered accurate and reproducible, with exception of DLCO which did not meet ATS standards. Spirometry: -FEV1/FVC: Normal @ 89% -FEV1: Normal @ 89% -FVC: Mildly reduced @ 74% Lung volumes by plethysmography: -RV: Reduced @ 56% -TLC: Mildly reduced @ 72% Diffusion capacity: -DLCO: Severe reduction @ 42 when corrected for Hb 11.9/dL Flow-volume loop: -Mild restrictive pattern Impressions: -Mild restrictive pattern on spirometry confirmed with mild reduction in TLC and severe diffusion impairment (which may be artificially decreased d/t not meeting ATS standards). 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 Clinical correlation required. Electronically Signed On 10-18-2023 19:17:03 EDT by Albin Sherman
--- NOTE | 2023-10-18 14:05 | CT_ITS ---
[address] [address] Patient Name: ALTON SALMERON MRN: [id number] date: 1940 Sex: F Assigned Patient Location: CARD Current Patient Location: Accession/Order Number: [id number] Exam Date: 10/18/2023 13:55 Report Date: 10/20/2023 06:24 At the request of: JUANI MARTINEZ Procedure: CT chest high res EXAMINATION: CT chest high res HISTORY: Pulmonary Fibrosis COMPARISON: CT chest 04/13/2023 TECHNIQUE: Axial images were obtained at 10 mm intervals during inspiration and expiration in the supine and prone positions. No IV contrast given. Dose reduction techniques were achieved by using automated exposure control and/or adjustment of mA and/or kV according to patient size and/or use of iterative reconstruction technique. FINDINGS: LUNGS: Mild/moderate chronic interstitial changes throughout the lungs. No appreciable air trapping or significant peripheral fibrosis. Calcification of the trachea, central, and segmental bronchi. Minimal bronchiectasis within right lower lobe. No focal infiltrates. PLEURA: No mass, effusion, or pneumothorax. ROSCOE: No mass or adenopathy. MEDIASTINUM: No mass or adenopathy. HEART: No significant enlargement or pericardial effusion.. Coronary arteries: Moderate to marked atherosclerotic disease. AORTA: No aneurysm.. CHEST WALL: No mass or axillary adenopathy LIMITED ABDOMEN: Small nonobstructing stone within left kidney. Limited images of the upper abdomen. OTHER: Negative. CT/CT chest high res IMPRESSION: 1. Moderate chronic interstitial changes without significant air trapping or focal peripheral fibrosis. 2. Suspect mild diffuse atelectasis. No convincing acute infiltrates. 3. Atherosclerotic coronary artery disease. 4. Nonobstructing left nephrolithiasis. Electronically authenticated by: SAVAGE GARCIA Date: 10/20/2023 06:24
== END 2023-10-18 12:31 | disposition home or self-care (01) ==
LOC: CARD 12:30
PROVIDERS: PCP Internal Medicine; Visit Provider Internal Medicine
DX: J84.10 Pulmonary fibrosis, unspecified (principal); I25.10 Atherosclerotic heart disease of native coronary artery without angina pectoris; N20.0 Calculus of kidney
CPT/HCPCS: 36415; 71250; 85018; 94010; 94726; 94729

== ENCOUNTER 2023-10-25 16:05 | Emergency (ER) | payer MEDICARE, SELFPAY ==
[2023-10-25 16:13] VITALS: BP 135/69; PULSE 88; TEMP 36.4; O2SAT 99; BMI 39.9
--- NOTE | 2023-10-25 16:37 | ED.HEATRA1 ---
HPI HPI - Head Injury General Chief complaint: Fall Stated complaint: Head Injury from fall, Lower Extremity Swelling Time Seen by Provider: 10/25/23 16:25 Source: patient and family (son) Mode of arrival: walk-in Limitations: no limitations History of Present Illness HPI Narrative: 83-year-old female presents to the emergency department with son for evaluation of head injury, knee injury. Patient fell yesterday at home. States she slipped on some food with her walker, falling forward. She first landed on her knee, then hit her head on someone else's walker. Complains of some mild pressure, discomfort to the top of her head and pain to the right knee. She is on Coumadin. History of DVT. Denies loss of consciousness, memory impairment, neck or upper back pain. States she does have lower back pain, but this is chronic secondary to an old compression fracture and is unchanged. Denies any motor or sensory changes, paresthesias Quality:?Blunt trauma Severity:?Mild Timing:?Injury occurred yesterday, constant Context: Normal setting and activity? Modifying factors:?Pain worse with palpation, movement Associated symptoms: As above Related Data Home Medications ?Medication ?Instructions ?Recorded ?Confirmed acetaminophen 500 mg tablet 1,000 mg PO DAILY 10/25/23 10/25/23 atorvastatin 40 mg tablet 40 mg PO DAILY 10/25/23 10/25/23 carbidopa 25 mg-levodopa 100 mg 1 tab PO DAILY 10/25/23 10/25/23 tablet levothyroxine 75 mcg tablet 75 mcg PO DAILY 10/25/23 10/25/23 metformin 500 mg tablet 500 mg PO Q12H 10/25/23 10/25/23 metoprolol tartrate 50 mg tablet 75 mg PO Q12H 10/25/23 10/25/23 mirtazapine 7.5 mg tablet 7.5 mg PO DAILY 10/25/23 10/25/23 omeprazole 20 mg capsule,delayed 20 mg PO DAILY 10/25/23 10/25/23 release venlafaxine 150 mg 150 mg PO DAILY 10/25/23 10/25/23 capsule,extended release 24 hr venlafaxine 75 mg tablet 75 mg PO DAILY 10/25/23 10/25/23 warfarin 2 mg tablet 2 mg PO .complex 10/25/23 10/25/23 Allergies Allergy/AdvReac Type Severity Reaction Status Date / Time acetaminophen [From Vicodin] AdvReac Severe Confusion Verified 10/25/23 16:13 atorvastatin AdvReac Severe Unknown Verified 10/25/23 16:33 hydrocodone [From Vicodin] AdvReac Severe Confusion Verified 10/25/23 16:13 latex AdvReac Severe Rash Verified 10/25/23 16:13 Opioid HPI Opioid Management Most Recent Pain and Opioid Data: No Data to Display Review of Systems ROS Constitutional Denies: fatigue Eyes Denies: change in vision or eye discomfort Ears, nose, mouth, and throat Denies: neck pain or vertigo Cardiovascular Denies: chest pain Respiratory Denies: shortness of breath Gastrointestinal Denies: abdominal pain Musculoskeletal Reports: back pain (chronic, unchanged), extremity swelling (right knee) and joint pain (right knee); Denies: neck pain, extremity pain or muscle weakness Integumentary/Breast Denies: other (wound) Neurological Reports: headache; Denies: weakness in extremities, dizziness, vertigo or confusion Endocrine Denies: fatigue Hematologic/Lymphatic Reports: other (On coumadin) [facility] Medical History 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 - Benign neoplasm of cerebral meninges (ICD-10) Dermatophytosis ?B35.9 - Dermatophytosis, unspecified (ICD-10) Urgency of urination ?R39.15 - Urgency of urination (ICD-10) Unsteadiness on feet ?R26.81 - Unsteadiness on feet (ICD-10) Vaginitis ?N76.0 - Acute vaginitis (ICD-10) Occipital neuralgia ?M54.81 - Occipital neuralgia (ICD-10) Collapsed vertebra ?M48.50XA - Collapsed vertebra, not elsewhere classified, site unspecified, initial encounter for fracture (ICD-10) Osteoarthritis ?M19.90 - Unspecified osteoarthritis, unspecified site (ICD-10) Seborrheic dermatitis ?L21.9 - Seborrheic dermatitis, unspecified (ICD-10) Gastro-esophageal reflux ?K21.9 - Gastro-esophageal reflux disease without esophagitis (ICD-10) Venous insufficiency ?I87.2 - Venous insufficiency (chronic) (peripheral) (ICD-10) Deep vein phlebitis and thrombophlebitis of lower extremity ?I80.209 - Phlebitis and thrombophlebitis of unspecified deep vessels of unspecified lower extremity (ICD-10) Peripheral vascular disease ?I73.9 - Peripheral vascular disease, unspecified (ICD-10) Atherosclerotic heart disease ?I25.10 - Atherosclerotic heart disease of [place] coronary artery without angina pectoris (ICD-10) Macular degeneration ?H35.30 - Unspecified macular degeneration (ICD-10) Sleep apnea ?G47.30 - Sleep apnea, unspecified (ICD-10) Parkinson disease ?G20.A1 - Parkinson's disease without dyskinesia, without mention of fluctuations (ICD-10) Hyperlipidemia ?E78.5 - Hyperlipidemia, unspecified (ICD-10) Obesity ?E66.9 - Obesity, unspecified (ICD-10) Diabetes mellitus ?E11.9 - Type 2 diabetes mellitus without complications (ICD-10) Exam Constitutional Vital Signs, click to edit/add: Last Vital Signs Temp 97.6 F 10/25/23 16:13 Pulse 88 10/25/23 17:51 Resp 18 10/25/23 17:51 BP 157/70 H 10/25/23 17:51 Pulse Ox 97 10/25/23 17:51 O2 Del Method Room Air 10/25/23 16:13 Documenting provider has reviewed patient's vital signs: yes Common normals: no apparent distress and oriented x3 General appearance: cooperative and well developed; not ill appearing [facility] Common normals: normocephalic, external ears normal and external nose normal Head and scalp: normocephalic Head images: 1. location of pain. No appreciable tenderness. No cephalohematoma, crepitus, instability, wound noted Face and sinus: normal facial exam Nose: external nose normal External ear: external ears normal Mouth: no mouth trauma Throat: posterior oropharynx normal Eye Common normals: PERRL and conjunctivae normal General eye: normal appearance of both eyes Alignment: alignment normal Periorbital: periorbital findings normal Eyelid: eyelids normal Conjunctiva: conjunctiva(e) normal Pupil: PERRL EOM: EOM normal Neck & C-Spine General: trachea midline; no tenderness Cervical spine: no cervical spine tenderness, no step off deformity and no paracervical muscle tenderness Chest Chest: symmetrical chest wall rise; no tenderness Respiratory Common normals: normal respiratory effort and clear to auscultation bilaterally Effort & inspection: able to speak in complete sentences and symmetric chest movement Auscultation: clear to auscultation bilaterally Cardio Common normals: regular rate and regular rhythm Rate: regular rate Rhythm: regular rhythm Heart sounds: no murmurs Peripheral pulses: dorsalis pedis pulses present bilateral 2+ GI Common normals: soft to palpation Inspection: normal to inspection; no abdominal distension Palpation: soft; non-tender Back & Pelvis Thoracic spine/upper back: normal to inspection; no thoracic spinal tenderness and no paraspinal muscle tenderness Lumbar spine/lower back: normal to inspection and lumbar spinal tenderness Lumbar spinal tenderness location: L1 (states chronic and unchanged); no paraspinal muscle tenderness Extremity General: normal exam except as noted Right lower extremity: knee joint Right knee: inspection, palpation (diffuse tenderness), ROM (somewhat decreased, but can perform to a degree with flexion and extension), neurovascular exam (intact) and other (no instablility) Neuro Common normals: oriented x3, CN's II-XII intact bilaterally, moves all extremities, no focal motor deficits and no sensory deficits noted Speech: speech normal Psych Common normals: mental status grossly normal, thought process normal and cooperative Thought process: normal thought process Course Reevaluation(s) Reevaluation #1: Denies any pain in her knee currently. Denies headache. Discussed with patient and son results, plan, and disposition. They are agreeable with plan Time: 18:20 Vital Signs Vital signs: Vital Signs Temperature 97.6 F 10/25/23 16:13 Pulse Rate 88 10/25/23 16:13 Respiratory Rate 18 10/25/23 16:13 Blood Pressure 135/69 10/25/23 16:13 Pulse Oximetry 99 10/25/23 16:13 Oxygen Delivery Method Room Air 10/25/23 16:13 Temperature 97.6 F 10/25/23 16:13 Pulse Rate 88 10/25/23 17:51 Respiratory Rate 18 10/25/23 17:51 Blood Pressure 157/70 H 10/25/23 17:51 Pulse Oximetry 97 10/25/23 17:51 Oxygen Delivery Method Room Air 10/25/23 16:13 MDM - Head Injury MDM Narrative Medical decision making narrative: This is a pleasant 83-year-old female presented the emergency department with her son for evaluation of head and knee pain. Patient had mechanical fall yesterday landing on knee and bumping her head on a nearby walker. Was at an appointment today and due to the fact that she is on Coumadin and was advised to come to the emergency department for evaluation. Patient has mild headache. She notes some swelling to her right knee. Otherwise, denies any other complaints. On arrival, afebrile, vital signs are stable. On exam, nontoxic, well-appearing patient in no distress. She has some discomfort at the top of her head. No appreciable tenderness. No swelling, step-off, crepitus, discoloration noted. Her right knee has some mild swelling, mild diffuse tenderness. No laxity. She is able to perform full extension, flexion is a little limited due to pain, but able to perform to a degree. Neurovascularly intact. Labs reveal no leukocytosis, anemia, thrombocytopenia, electrolyte imbalance, renal impairment. INR was elevated at 4.15 CT head and neck imaging, per radiologist reveals no acute findings Right knee x-ray imaging, per radiologist reveals no acute findings. Favor head contusion, neck strain, right knee contusion status post fall, supratherapeutic INR ICH, neck strain, fracture, dislocation less likely based on imaging Injury occurred almost 24 hours ago reducing likelihood of spontaneous intracranial bleeding. As this was also considered. Additional history obtained from son Prior INR was reviewed which was about 3.83 in May Disposition ? The patient was discharged. Plan: Patient will be discharged to home. Condition at time of disposition: stable Patient was advised to skip 1 dose of Coumadin only. Advised to follow-up on her INR for Advised to follow up with primary provider. Advised to return for any worsening and/or development of new, concerning signs or symptoms PLEASE NOTE: Portions of the medical record may have been produced using electronic web development intern and may contain errors with respect to translation of words which may not have been identified prior to finalization of the chart. Medical Records Attestation: I reviewed the patient's medical records. Lab Data Attestation: I reviewed the patient's lab results. Labs: Lab Results 10/25/23 Range/Units 16:51 WBC 5.8 (4.0-11.0) 10^3/uL RBC 3.95 L (4.20-5.40) 10^6/uL Hgb 11.5 L (12.0-16.0) g/dL Hct 37.7 (36.0-48.0) % MCV 95.4 (81.0-99.0) fL MCH 29.1 (26.7-34.0) pg MCHC 30.5 (29.9-35.2) g/dL RDW 15.2 H (11.0-15.0) % Plt Count 175 (150-450) 10^3/uL MPV 10.4 (9.5-13.5) fL Neut % (Auto) 49.3 (43.0-75.0) % Lymph % (Auto) 38.7 (20.5-60.0) % Nash % (Auto) 8.5 (1.7-12.0) % Eos % (Auto) 3.0 (0.9-7.0) % Baso % (Auto) 0.3 (0.2-2.0) % Neut # (Auto) 2.8 (1.4-6.5) 10^3/uL Lymph # (Auto) 2.2 (1.2-3.8) 10^3/uL Nash # (Auto) 0.5 (0.3-0.8) 10^3/uL Eos # (Auto) 0.2 (0.0-0.7) 10^3/uL Baso # (Auto) 0.0 (0.0-0.1) 10^3/uL Abs Immat Gran (auto) 0.01 (0.00-0.03) 10^3/uL Imm/Tot Granulo (auto) 0.2 (0.0-0.5) % PT 38.2 H (9.0-11.6) sec INR 4.15 H* APTT 44.4 H* (22.3-36.2) sec Sodium 136 (136-145) mmol/L Potassium 4.0 (3.5-5.1) mmol/L Chloride 99 (98-107) mmol/L Carbon Dioxide 33.6 H (21.0-32.0) mmol/L Anion Gap 7.4 BUN 17.0 (7.0-18.0) mg/dL Creatinine 1.05 H (0.55-1.02) mg/dL Est GFR ( Amer) >60 (>=60) Est GFR (Non-Af Amer) 50 L (>=60) BUN/Creatinine Ratio 16.2 Glucose 231 H (74-106) mg/dL Calcium 8.8 (8.5-10.1) mg/dL Imaging Data Right Knee Xray, CT Head and C-spine: Radiologist's impression: ITS Impressions Knee X-Ray 10/25/23 17:00 IMPRESSION: 1. No evidence of fracture, dislocation or significant joint effusion. 2. Mild/moderate tricompartmental osteoarthritis. Electronically authenticated by: NEO PARRA Date: 10/25/2023 17:[address] 10/25/23 17:08 IMPRESSION: 1. No evidence of fracture or dislocation. 2. Underlying spinal canal stenosis at C6-C7 and C7-T1. 3. Moderate-severe multilevel bilateral facet arthropathy, left greater than right. 4. Diffuse demineralization. Electronically authenticated by: NEO PARRA Date: 10/25/2023 17:[address] 10/25/23 17:08 IMPRESSION: 1. No acute intracranial process. 2. Mild bilateral chronic microvascular ischemic change. Electronically authenticated by: NEO PARRA Date: 10/25/2023 17:50 Discharge Plan Discharge Stand Alone Forms: Portal Instructions Chief Complaint: Fall Clinical Impression: Supratherapeutic INR Contusion of head Qualifiers: Encounter type: initial encounter Contusion of head detail: scalp Qualified Code(s): S00.03XA - Contusion of scalp, initial encounter Contusion of knee, right Qualifiers: Encounter type: initial encounter Qualified Code(s): S80.01XA - Contusion of right knee, initial encounter Patient Disposition: Home, Self-Care Time of Disposition Decision: 18:22 Condition: Good Mode of Transportation: Private Vehicle Prescriptions / Home Meds: No Action acetaminophen 500 mg tablet 1,000 mg PO DAILY atorvastatin 40 mg tablet 40 mg PO DAILY carbidopa-levodopa 25-100 mg tablet 1 tab PO DAILY levothyroxine 75 mcg tablet 75 mcg PO DAILY metformin 500 mg tablet 500 mg PO Q12H metoprolol tartrate 50 mg tablet 75 mg PO Q12H mirtazapine 7.5 mg tablet 7.5 mg PO DAILY omeprazole 20 mg capsule,delayed release(DR/EC) 20 mg PO DAILY venlafaxine 150 mg capsule,extended release 24hr 150 mg PO DAILY venlafaxine 75 mg tablet 75 mg PO DAILY warfarin 2 mg tablet 2 mg PO .complex Rx Instructions: 4mg tablet once a day , 2mg tablet once a day sun.tue.tue,tue,sat Print Language: Vincentian Instructions: Head Injury (ED), Contusion in Adults (ED), Elevated INR (ED) Additional Instructions: Skip your next Coumadin dose. Referrals: HONEY QUINONEZ [Primary Care Provider] - 1 week Discharge Date/Time: 10/25/23 18:44
--- OUTSIDE RECORDS SUMMARY | 2023-10-25 16:48 | XMS_ITS | CCD ---
Author Organization [facility] Care Team Providers Care Insurance Business Analyst Name Role Phone Honey Rabago Primary Care Provider Honey Rabago Attending Provider Anu Alva Unavailable Honey Rabago DO Primary Care Provider Honey Rabago DO Primary Care Provider Oswaldo Almonte Unavailable DO Honey Rabago Primary Care Provider [phone] DO Sumanth Lowe Emergency Provider DO Holger Dorado Emergency Provider DO Honey Rabago Attending Provider [phone] DO Marvin Peter Emergency Provider MD Enrrique Mota Admit Provider [phone] MD Jairo Benson Other Provider MD [...] DO Justice De Oliveira Other Provider MD Enrriqeu Mota Other Provider MD Rosa Maria Odell Other Provider Angeli, ANP-BC Tonya Other Provider MD Juan Wallace Other Provider MD Jerson Walker Other Provider MD Gaye Claire Other Provider MD Queta Mclain Other Provider MD Rd Blackmon Other Provider MD Anibal Gallagher Other Provider MD Damion Thapa Other Provider Cortney, LUBRICATION SUPERVISOR-C Faustina Quiroga Other Provider MD Valente Lauren [...] Provider MD Misha Ziegler Other Provider Dials, BIAS BINDING FOLDER Chery M Other Provider DO José Miguel [...] Provider DO Honey Rabago Primary Care Provider [phone] DO Honey Rabago Attending Provider [phone] Honey Rabago Attending Unavailable Honey Rabago Admitting [...] Vaschak DO, Honey J Primary Care Provider GLORIA PEREZ Attending Unavailable HONEY RABAGO Primary [...] source) buPROPion Drug Allergy 08-01-19 21 Hallucinating [facility] Latex (1 source) Latex Substance Allergy 08-01-[address] [facility] Opioid Agonists (1 source) HYDROcodone Drug Allergy 08-01-[address] [facility] (20 sources) Acetaminophen / HYDROcodone; Translations: [Vicodin] Drug Allergy Unknown [facility] (20 sources) buPROPion; Translations: [BUPROPION] Drug Allergy 01-19-20 17 Mental Status Change, Other [facility] Work Phone: (20 sources) Latex Propensity to adverse reactions 11-05-19 22 Unknown, [facility] (12 sources) Acetaminophen / HYDROcodone; Translations: [HYDROCODONE-ACET AMINOPHEN] Drug Allergy 04-13-19 17 Mental Status Change, Other [facility] (11 sources) Adhesive Tape; Translations: [ADHESIVE TAPE (ROSINS)] Allergy to substance 01-13-20 [facility] Work Phone: (12 sources) Latex; Translations: [LATEX, NATURAL RUBBER] Drug Allergy 04-13-19 17 [facility] (11 sources) rosuvastatin; Translations: [ROSUVASTATIN CALCIUM] Drug Allergy 01-13-20 [facility] Work Phone: (7 sources) HYDROcodone; Translations: [hydrocodone] Drug Allergy 01-13-20 21 Unknown [facility] (1 source) buPROPion Drug Allergy 11-05-19 [facility] (1 source) Latex Drug allergy (disorder) 11-05-19 [facility] (1 source) natural latex rubber Drug allergy (disorder) [facility] (1 source) Rosuvastatin calcium Allergy [...] 01/18/2023: Pt takes 2 tabs daily per MarginLeft med list 0 Active take 1 tablet by rc th every six hours as needed Acetaminophen 500 MG 1 tablet as needed Orally every 6 hrs Active Comment on above: Take 500 mg by mouth every 8 hours as needed. 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 docusate sodium 50 mg / sennosides, detention 8.6 mg oral tablet (5 sources) Start: [...] therapy completed) take 1 capsule by mo [facility] every twenty-four hours Gabapentin 300 MG [...] 150 mg by mouth every morning. Vit C,A-Sv-Uzadb-Lutei n-Zeaxan (Preservision Areds-2) 804-757-77-1 vx-qzjr-qh-mg Capsule (6 sources) Start: 01-18-2017 End: 07-10-2017 take 1 tablet by mouth once daily at bedtime Vit C,K-Ry-Vkbdy-Lutein-Ze axan (Preservision Areds-2) 352-607-64-1 dm-jqgz-wh-mg Capsule Discontinued 1 TAB PO every day in the morning and at bedtime January 18, 2017 7:43am July 10, 2017 6:45pm Start: 01-18-2017 End: 07-10-2017 take 1 tablet by mouth once daily at bedtime Vit C,Y-Pv-Lbmyu-Lutein-Zeaxan (Preservision Areds-2) 844-261-43-1 ox-cfgo-gi-mg Capsule Discontinued 1 TAB PO every day in the morning and at bedtime January 18, 2017 12:00am July 10, 2017 5:45pm Start: 01-18-2017 End: 07-10-2017 take 1 tablet by mouth once daily at bedtime Vit C,X-Yd-Kcfrk-Lutein-Zeaxan (Preservision Areds-2) 912-684-71-1 dc-vbic-uy-mg Capsule Discontinued 1 TAB PO every day in the morning and at bedtime January 18, 2017 1:00am July 10, 2017 6:45pm Vit C,F-Dq-Uukkv-Lutein-Zeax an (Preservision Areds-2) 250-90-40-1 mg Capsule (5 sources) Start: 11-04-2021 End: 11-25-2021 Vit C,P-Pp-Sjkbl-Lutein-Zeax an (Preservision Areds-2) 250-90-40-1 mg Capsule Discontinued 1 TAB PO Twice daily November 03, 2021 11:00pm November 25, 2021 3:32pm Start: 11-04-2021 End: 11-25-2021 Vit C,Z-Ev-Zxnaj-Lutein-Zeax an (Preservision Areds-2) 250-90-40-1 mg Capsule Discontinued 1 TAB PO Twice daily November 04, 2021 12:00am November 25, 2021 4:32pm Start: 11-04-2021 Vit C,E-Zn-Manager Engagement cp-Psbhmk-Wubknh (Preservision Areds-2) 250-90-40-1 mg Capsule Active 1 [...] once daily. Take 2 tablets by mo [facility] once daily. Warfarin - Pharmacy Dosing [...] Coronary atherosclerosis; Translations: [Atherosclerotic heart disease of [place] coronary artery without angina pectoris] Onset: 12-20-2022 [...] sources) Long-term current use of anticoagulant; Translations: [assisted (current) use of anticoagulants] Onset: 11-01-2016 11-09-2021 Episodic Other aftercare (13 sources) medical terminologist (current) use of anticoagulants; Translations: [Long-term (current) use of anticoagulants] Onset: 11-04-2021 11-11-2021 Episodic Other aftercare (1 source) Anticoagulant effect; Translations: [medical terminologist (current) use of anticoagulants] Onset: 12-20-2022 12-20-2022 [...] Name Value Interpretation Reference Range Facility [facility] 06-23-2023 CNOV Office Visit (NRMDN) -- ALTON BARKER ([id number]) 1940 F Date Time Provider Department 06/23/23 3:00 PM GLORIA PEREZ During your visit today, we recorded the following information about you: Weight Height 107.6 kg 1.676 m Gloria Perez APRN.CNP 06/23/2023 8:12 PM Signed [facility] - FOLLOW UP EVALUATION Honey Rabago DO [address] [place] [address] Dear Honey Rabago DO: I had the pleasure of seeing Ms. Barker for follow-up today. As you know she is a 82 year old right-handed female with a history of Parkinson's disease since 2013. She is seen with her son. Subjective Previous Plan-01/20/2023 Visit: Parkinson's disease: Continue current medication schedule but discuss with the doctor's assistant if you can take the Sinemet on [...] No No (more content not included)... [facility] HEMOGLOBINon 04-27-2023 Hemoglobin (Bld) [Mass/Vol] 11.7 g/dL Low 12.0 - 16.0 g/dL [facility] Interpretation and review of laboratory results Abnormal [facility] XR CHEST 2 VIEWSon 4 XR [...] Moya, DO Normal Not Available Bebe 02-11-2023 [facility] Telephone (WALTERMDN) -- ALTON BARKER ([id number]) 1940 F Date Time Provider Department 02/11/23 GLORIA PEREZ During your visit today, we recorded the following information about you: Mary Anne Beatty 02/11/2023 1:54 PM Signed [id number] [place] [address] - [address] [facility] [phone] [id number] carbidopa-levodopa (SINEMET 25-100) 25-100 mg per tablet [...] Date Reviewed: 01/20/2023 Reviewed by: Gloria Perez APRN.TOOL MAKER APPRENTICE - Fully Assessed Reason for Visit: Medication [...] 01/18/2023: Pt takes 2 tabs daily per MarginLeft med list - MEDICATION, NON-DATABASE 750 mg [...] BY MOUTH TWICE DAILY WITH FOOD - [employer] VIVIAN 2 SENSOR kit apply 1 SENSOR [...] Of Date 02/11/2023 Noted Resolved OSTEOARTHROS KNEE [[id number]] 06/29/2012 Parkinson's disease without dyskinesia, with fl*03/02/2018 Obesity, Class I, BMI 30-34.9 [E66.9] 07/08/2022 Depression with anxiety [F41.8] 01/20/2023 Encounter Status:Closed by MARY ANNE BEATTY on 02/11/23 [facility] CNOVon 01-20-2023 CNOV Office Visit (NRMDN) -- ALTON BARKER ([id number]) 1940 F Date Time Provider Department 01/20/23 3:00 PM [facility] During your visit today, we recorded the following information about you: Height 1.676 m Gloria Perez APRN.[facility] 01/24/2023 12:36 PM Signed [facility] - FOLLOW UP EVALUATION Honey Rabago DO [address] [place] [address] Dear Honey Rabago DO: I had the [...] Change halluc (more content not included)... [facility] CULTURE URINEon 07-16-2022 CULTURE URINE Isolate [...] Trimethoprim/Sulfamethoxaz ole <=20 S F Normal [facility] Comment on above: Performed By: #### U RCX #### [facility] [address] [place] [address] Dr. Joyce Strauss UA (CLEAN/CATCH) SANITARY INSPECTOR/MICRO I F IND.on 2022 Bilirubin Ql (U) Negative Normal NEGATIVE [facility] Comment on above: Performed By: #### U MICRO, UACSIND #### [facility] [address] [place] [address] Dr. Joyce Strauss Clarity (U) CLEAR Normal CLEAR [facility] Comment on above: Performed By: #### U MICRO, UACSIND #### [facility] [address] [place] [address] Dr. Joyce Strauss Color (U) LT. YELLOW Normal YELLOW [facility] Comment on above: Performed By: #### U MICRO, UACSIND #### [facility] [address] [place] [address] Dr. Joyce Strauss Glucose Ql (U) Negative Normal NEGATIVE [facility] Comment on above: Performed By: #### U MICRO, UACSIND #### [facility] [address] [address] [address] Joyce Strauss Hemoglobin Ql (U) Negative Normal NEGATIVE [facility] Comment on above: Performed By: #### U MICRO, UACSIND #### [facility] [address] [address] [address] Joyce Strauss Ketones Ql (U) Negative Normal NEGATIVE [facility] Comment on above: Performed By: #### U MICRO, UACSIND #### [facility] [address] [address] [address] Joyce Strauss LEUKOCYTES LARGE Abnormal NEGATIVE [facility] Comment on above: Performed By: #### U MICRO, UACSIND #### [facility] [address] [address] [address] Joyce Strauss Nitrite Ql (U) Positive Abnormal NEGATIVE [facility] Comment on above: Performed By: #### U MICRO, UACSIND #### [facility] [address] [address] [address] Joyce Strauss pH (U) 5.5 [pH] Normal 5-9 [facility] Comment on above: Performed By: #### U MICRO, UACSIND #### [facility] [address] [place] [address] Dr. Joyce Strauss SPEC GRAVITY 1.010 Normal 1.005-<=1. 025 [facility] Comment on above: Performed By: #### U MICRO, UACSIND #### [facility] [address] [address] [address] Joyce Strauss UA PROTEIN TRACE Normal NEGATIVE/ TRACE [facility] Comment on above: Performed By: #### U MICRO, UACSIND #### [facility] [address] [address] [address] Joyce Strauss UR MICRO IND INDICATED Normal [facility] Comment on above: Performed By: #### U MICRO, UACSIND #### [facility] [address] [address] [address] Joyce Strauss Urobilinogen Qn (U) 0.2 {Cam'U}/dL Normal 0.2 - 1. [address] [facility] Comment on above: Performed By: #### U MICRO, UACSIND #### [facility] [address] [place] [address] Dr. Joyce Strauss URINE MICROSCOPIC ONLYon BACTERIA LARGE Abnormal NONE SEEN [facility] Comment on above: Performed By: #### U MICRO, UACSIND #### [facility] [address] [place] [address] Dr. Joyce Strauss Bacteria identified Cx Nom (U) INDICATED Normal [facility] Comment on above: Performed By: #### U MICRO, UACSIND #### [facility] [address] [place] [address] Dr. Joyce Strauss CA OX CRYSTALS RARE Normal [facility] Comment on above: Performed By: #### U MICRO, UACSIND #### [facility] [address] [place] [address] Dr. Joyce Strauss CAST NONE SEEN Normal NONE SEEN [facility] Comment on above: Performed By: #### U MICRO, UACSIND #### [facility] [address] [place] [address] Dr. Joyce Strauss Crystals LM Nom (Urine sed) SEEN Abnormal NONE SEEN [facility] Comment on above: Performed By: #### U MICRO, UACSIND #### [facility] [address] [place] [address] Dr. Joyce Strauss Epithelial cells LM Ql (Urine sed) FEW Abnormal NONE SEEN /RARE [facility] Comment on above: Performed By: #### U MICRO, UACSIND #### [facility] [address] [place] [address] Dr. Joyce Strauss MUCOUS NONE SEEN Normal NONE SEEN [facility] Comment on above: Performed By: #### U MICRO, UACSIND #### [facility] [address] [place] [address] Dr. Joyce Strauss RBC NONE SEEN Abnormal 0-2 [facility] Comment on above: Performed By: #### U MICRO, UACSIND #### [facility] [address] [place], [place] [address] Dr. Joyce Strauss WBC (U) [#/Vol] /uL Abnormal NONE SEEN [facility] Comment on above: Performed By: #### U MICRO, UACSIND #### [facility] [address] [address] [address] Joyce Strauss CNOVon 07-08-2022 CNOV Office Visit (NRMDN) -- ALTON BARKER ([id number]) 1940 F Date Time Provider Department 07/08/22 3:00 PM GLORIA PEREZ NRMARIBELL During your visit today, we recorded the following information about you: Weight Height 85.1 kg 1.676 m Gloria Perez APRN.TOOL MAKER APPRENTICE 07/11/2022 5:23 PM Signed [facility] - FOLLOW UP EVALUATION Honey Rabago DO, DO [address] [facility] [address] [facility] [address] Dear Honey Rabago DO, DO: I had [...] She likes the staff. The director and creative services director have to chip into cook since the health information managers cook and this has been good from [...] lot online or on TV, $15/month on lotBlackSquarey tickets (in past) Palliative Concerns: Caregiver burden: In assisted living so now less stress on son and daughter in law Spiritual concerns: No Advanced directives on file: No Palliative services: No Therapy and Exercise: Last PT Date: Current June 2022 Last OT Date: Last ST Date: Current June 2022 Exercises Regula (more content not included)... [facility] CULTURE URINEon 06-03-2022 CULTURE URINE Isolate [...] F Trimethoprim/Sulfamethoxaz ole <=20 S F Normal [facility] Comment on above: Performed By: #### U RCX #### [facility] [address] [place] [address] Dr. Joyce Strauss UA RANDOMon 06-01-2022 Bilirubin Ql (U) Negative Normal NEGATIVE [facility] Comment on above: Performed By: #### U A #### [facility] [address] [place] [address] Dr. Joyce Strauss Clarity (U) CLOUDY Abnormal CLEAR [facility] Comment on above: Performed By: #### U A #### [facility] [address] [place] [address] Dr. Joyce Strauss Color (U) YELLOW Normal YELLOW [facility] Comment on above: Performed By: #### U A #### [facility] [address] [place] [address] Dr. Joyce Strauss Glucose Ql (U) Negative Normal NEGATIVE [facility] Comment on above: Performed By: #### U A #### [facility] [address] [place] [address] Dr. Joyce Strauss Hemoglobin Ql (U) MODERATE Abnormal NEGATIVE [facility] Comment on above: Performed By: #### U A #### [facility] [address] [place] [address] Dr. Joyce Strauss Ketones Ql (U) Negative Normal NEGATIVE [facility] Comment on above: Performed By: #### U A #### [facility] [address] [place] [address] Dr. Joyce Strauss LEUKOCYTES LARGE Abnormal NEGATIVE [facility] Comment on above: Performed By: #### U A #### [facility] [address] [place] [address] Dr. Joyce Strauss Nitrite Ql (U) Positive Abnormal NEGATIVE [facility] Comment on above: Performed By: #### U A #### [facility] [address] [place] [address] Dr. Joyce Strauss pH (U) 6.0 [pH] Normal 5-9 [facility] Comment on above: Performed By: #### U A #### [facility] [address] [place] [address] Dr. Joyce Strauss SPEC GRAVITY 1.010 Normal 1.005-<=1. 025 [facility] Comment on above: Performed By: #### U A #### [facility] [address] [address] [address] Joyce Strauss UA PROTEIN 100 mg/dl Abnormal NEGATIVE/ TRACE [facility] Comment on above: Performed By: #### U A #### [facility] [address] [address] [address] Joyce Strauss Urobilinogen Qn (U) 1.0 {Cam'U}/dL Normal 0.2 - 1. 0 [facility] Comment on above: Performed By: #### U A #### [facility] [address] [address] [address] Joyce Strauss Urine culture routineOrdered By: Honey Rabago on 01-01-2022 Bacteria identified Cx Nom (U) Escherichia coli [facility] Automated erythrocytes count in urine sediment (number/area)Ordered By: Honey Rabago on 12-30-2021 RBC Auto (Urine sed) [#/Area] 3-4 [HPF] 0-4 [facility] Automated leukocytes count i n urine sediment (number/area)Ordered By: Honey Rabago on 12-30-2021 WBC Auto (Urine sed) [#/Area] 50-100 [HPF] 0-4 [facility] Automated urine color determ inationOrdered By: Honey Rabago on 12-30-2021 Color (U) Yellow Normal Yellow [facility] Comment on above: Order Comment: Name Collection Type:: Clean-Voided Midstream Performed By: #### G LULS #### Point of Care testing , Bilirubin Test strip Ql (U)O rdered By: Honey Rabago on 12-30-2021 Bilirubin Ql (U) Negative Negative [facility] Dipstick and Microscopicon 1 Appearance (U) Cloudy Critically abnormal Clear [facility] Comment on above: Order Comment: Name Collection Type:: Clean-Voided Midstream Performed By: #### G LULS #### Point of Care testing , Bacteria,Urine 1+ High None Seen [facility] Comment on above: Order Comment: Name Collection Type:: Clean-Voided Midstream Performed By: #### G LULS #### Point of Care testing , Bilirubin,Urine Negative Normal Negative [facility] Comment on above: Order Comment: Name Collection Type:: Clean-Voided Midstream Performed By: #### G LULS #### Point of Care testing , Glucose Ql (U) Normal Normal Normal [facility] Comment on above: Order Comment: Name Collection Type:: Clean-Voided Midstream Performed By: #### G LULS #### Point of Care testing , Hyaline Casts,Urine 0-8 Normal 0-8 [facility] Comment on above: Order Comment: Name Collection Type:: Clean-Voided Midstream Result Comment: PERF ORMED BY: [facility] [address] [facility] [address] PATHOLOGIST FRONT TENDER FLIP GERMAN M.D. Performed By: #### G LULS #### Point of Care testing , Ketones Ql (U) Negative Normal Negative [facility] Comment on above: Order Comment: Name Collection Type:: Clean-Voided Midstream Performed By: #### G LULS #### Point of Care testing , Leukocyte esterase Test strip Ql (U) 3+ High Negative [facility] Comment on above: Order Comment: Name Collection Type:: Clean-Voided Midstream Performed By: #### G LULS #### Point of Care testing , Nitrite,Urine Positive High Negative [facility] Comment on above: Order Comment: Name Collection Type:: Clean-Voided Midstream Performed By: #### G LULS #### Point of Care testing , Occult Blood,Urine Negative Normal Negative [facility] Comment on above: Order Comment: Name Collection Type:: Clean-Voided Midstream Result Comment: PERF ORMED BY: [facility] [address] [place] [address] PATHOLOGIST FRONT TENDER FLIP GERMAN M.D. Performed By: #### G LULS #### Point of Care testing , Othe Crystals,Urine None Seen Normal [facility] Comment on above: Order Comment: Name Collection Type:: Clean-Voided Midstream Performed By: #### G LULS #### Point of Care testing , Protein,Urine Trace High Negative [facility] Comment on above: Order Comment: Name Collection Type:: Clean-Voided Midstream Performed By: #### G LULS #### Point of Care testing , RBC,Urine 3-4 Normal 0-4 [facility] Comment on above: Order Comment: Name Collection Type:: Clean-Voided Midstream Performed By: #### G LULS #### Point of Care testing , Specificy [place],Urine 1.017 Normal 1.001-1.03 0 [facility] Comment on above: Order Comment: Name Collection Type:: Clean-Voided Midstream Performed By: #### G LULS #### Point of Care testing , Squamous Epithelial Cell,Urine 1-2 Normal 0-2 [facility] Comment on above: Order Comment: Name Collection Type:: Clean-Voided Midstream Performed By: #### G LULS #### Point of Care testing , Urobilinogen,Urine Normal Normal Normal [facility] Comment on above: Order Comment: Name Collection Type:: Clean-Voided Midstream Performed By: #### G LULS #### Point of Care testing , WBC,Urine 50-100 High 0-4 [facility] Comment on above: Order Comment: Name Collection Type:: Clean-Voided Midstream Performed By: #### G LULS #### Point of Care testing , Ketones Auto test strip (U) [Mass/Vol]Ordered By: Honey Rabago on 12-30-2021 Ketones (U) [Mass/Vol] Negative Negative [facility] - UrinalysisOrder ed By: Honey Rabago on 12-30-2021 Hyaline casts LM Ql (Urine sed) 0-8 [LPF] 0-8 [facility] Nitrite Test strip Ql (U)Ord ered By: Honey Rabago on 12-30-2021 Nitrite Ql (U) Positive Negative [facility] Protein Auto test strip (U) [Mass/Vol]Ordered By: Honey Rabago on 12-30-2021 Protein (U) [Mass/Vol] Trace mg/dL Negative [facility] Specific gravity Auto test s trip (U) [Rel density]Ordered By: Honey Rabago on 12-30-2021 Specific gravity (U) [Rel density] 1.017 1.001-1.03 0 [facility] Squamous epithelial cells de tection in urine sediment by light microscopyOrdered By: Honey Rabago on 12-30-2021 Epithelial cells.squamous LM Ql (Urine sed) 1-2 [HPF] 0-2 [facility] Urine Cultureon 12-30-2021 Bacteria identified Cx Nom (U) ORGANISM: Escherichia coli (O:ESCCOL) [place] Count >100,000 Aerobic JIMMY Charge (NUC86) SUSCEPTIBILITY [...] RESISTANT TO ALL B-LACTAM DRUGS. PERFORMED BY: [address] [address] [place] [address] PATHOLOGIST FRONT TENDER FLIP GERMAN M.D. Normal [facility] Comment on above: Performed By: #### G LULS #### Point of Care testing , Urine bacteria detection by automated methodOrdered By: Honey Rabago on 12-30-2021 Bacteria Auto Ql (U) 1+ None Seen [facility] Urine clarity by refractomet ry automatedOrdered By: Honey Rabago on 12-30-2021 Clarity Refractometry automated (U) Cloudy Clear [facility] Urine glucose measurement by automated test strip (mass/volume)Ordered By: Honey Rabago on 12-30-2021 Glucose Auto test strip (U) [Mass/Vol] Normal mg/dL Normal [facility] Urine hemoglobin detection b y automated test stripOrdered By: Honey Rabago on 12-30-2021 Hemoglobin Auto test strip Ql (U) Negative Negative [facility] Urine leukocyte esterase det ection by automated test stripOrdered By: Honey Rabago on 12-30-2021 Leukocyte esterase Auto test strip Ql (U) 3+ Negative [facility] Urine pH measurement by auto mated test stripOrdered By: Honey Rabago on 12-30-2021 pH (U) 8.5 [pH] Normal 5.0-9.0 [facility] Comment on above: Order Comment: Name Collection Type:: Clean-Voided Midstream Performed By: #### G LULS #### Point of Care testing , Urine sediment crystal ident ification by light microscopyOrdered By: Honey Rabago on 12-30-2021 Crystals LM Nom (Urine sed) None seen [HPF] [facility] Urobilinogen Auto test strip (U) [Mass/Vol]Ordered By: Honey Rabago on 12-30-2021 Urobilinogen (U) [Mass/Vol] Normal mg/dL Normal [facility] PROTIMEon 12-21-2021 INR Coag (PPP) [Relative time] 2.34 {INR} Normal [facility] Comment on above: Performed By: #### P T #### [facility] [address] [address] [address] Joyce tSrauss INR GUIDELINES SEE BELOW Normal [facility] Comment on above: Result Comment: GUDELIA RED INR: 2.0 - 3.0 CONDITIONS NOT LISTED BELOW 2.5 - 3.5 FOR PROSTHETIC HEART VALVE REPLACEMENT 2.5 - 3.5 RECURRENT THROMBOSIS Performed By: #### P T #### [facility] [address] [place] [address] Dr. Joyce Strauss PT Coag (PPP) [Time] 23.9 s Critically high 9.0-11.6 [facility] Comment on above: Performed By: #### P T #### [facility] [address] [place] [address] Dr. Joyce Strauss PROTIMEon 12-14-2021 INR GUIDELINES SEE BELOW Normal [facility] Comment on above: Result Comment: GUDELIA RED INR: 2.0 - 3.0 CONDITIONS NOT LISTED BELOW 2.5 - 3.5 FOR PROSTHETIC HEART VALVE REPLACEMENT 2.5 - 3.5 RECURRENT THROMBOSIS Performed By: #### P T #### [facility] [address] [place] [address] Dr. Joyce Strauss PT Coag (PPP) [Time] 20.6 s Critically high 9.0-11.6 [facility] Comment on above: Performed By: #### P T #### [facility] [address] [place] [address] Dr. Joyce Strauss Prothrombin Time INRon 12-14 Prothrombin Time INR Nort [facility] Other INR Coag (PPP) [Relative time] 2.00 {INR} Normal [facility] Other Comment on above: Performed By: #### P T #### [facility] [address] [place] [address] Dr. Joyce Strauss PROTIMEon 11-30-2021 INR GUIDELINES SEE BELOW Normal [facility] Comment on above: Result Comment: GUDELIA RED INR: 2.0 - 3.0 CONDITIONS NOT LISTED BELOW 2.5 - 3.5 FOR PROSTHETIC HEART VALVE REPLACEMENT 2.5 - 3.5 RECURRENT THROMBOSIS Performed By: #### P T #### [facility] [address] [place] [address] Dr. Joyce Strauss PT Coag (PPP) [Time] 25.9 s Critically high 9.0-11.6 [facility] Comment on above: Performed By: #### P T #### [facility] [address] [place] [address] Dr. Joyce Strauss Prothrombin Time INRon 11-30 Prothrombin Time INR [facility] [employer] Other INR Coag (PPP) [Relative time] 2.55 {INR} Normal [facility] [employer] Other Comment on above: Performed By: #### P T #### [facility] [address] [address] [address] Joyce Strauss Glucose Glucometer (dC) [M ass/Vol]Ordered By: Alcides Moya on 11-25-2021 Glucose [Mass/Vol] 125 mg/dL [facility] Comment on above: Random Glucose Refer ence Range is dependent on time and content of last meal. Glucose of more than 200 mg/dL in a nonstressed, ambulatory subject supports the diagnosis of Diabetes Mellitus. Glucose Poct Glucometerson 0 11-25-2021 Glucose [Mass/Vol] 125 mg/dL Normal [facility] Comment on above: Result Comment: [place] Glucose Reference Range is dependent on time and content of last meal. Glucose of more than 200 mg/dL in a nonstressed, ambulatory subject supports the diagnosis of Diabetes Mellitus. PERFORMED BY: [facility] [address] [place] [address] PATHOLOGIST FRONT TENDER FLIP GERMAN M.D. Performed By: #### G LULS #### Point of Care testing , Laboratory - CoagulationOrde red By: Alcides Moya on 11-25-2021 PT Coag (PPP) [Time] 25.5 s 9.0-12.9 [facility] Platelet poor plasma interna tional normalized ratio (INR) by coagulation assay (relatOrdered By: Alcides Moya on 11-25-2021 INR Coag (PPP) [Relative time] 2.2 {INR} [facility] Comment on above: INR Therapeutic Rang [...] Coag (PPP) [Relative time] 2.2 {INR} Normal [facility] Comment on above: Order Comment: List [...] heart valves: 3 - 4.5 PERFORMED BY: [address] [address] [place] [address] PATHOLOGIST FRONT TENDER FLIP GERMAN M.D. Performed By: #### G LULS #### Point of Care testing , PT Coag (PPP) [Time] 25.5 s High 9.0-12.9 [facility] Comment on above: Order Comment: List the anticoagulant: COUMADIN/WARFARIN Performed By: #### G LULS #### Point of Care testing , Basic Metabolic Panelon 11-12 Anion gap [Moles/Vol] 11.8 mmol/L Normal 6.0-15.0 [facility] Comment on above: Performed By: #### G LULS #### Point of Care testing , Calcium [Mass/Vol] 8.7 mg/dL Normal 8.2-10.2 [facility] Comment on above: Performed By: #### G LULS #### Point of Care testing , Chloride [Moles/Vol] 103 mmol/L Normal 95-114 [facility] Comment on above: Performed By: #### G LULS #### Point of Care testing , CO2 [Moles/Vol] 28.1 mmol/L Normal 22.0-30.0 [facility] Comment on above: Performed By: #### G LULS #### Point of Care testing , Creatinine [Mass/Vol] 0.53 mg/dL Normal 0.44-1.03 [facility] Comment on above: Performed By: #### G LULS #### Point of Care testing , Creatinine Clr Calc Pharmacy 64.37 [facility] Comment on above: Result Comment: PERF ORMED BY: [facility] [address] [place] [address] PATHOLOGIST FRONT TENDER FLIP GERMAN M.D. Performed By: #### G LULS #### Point of Care testing , Estimated GFR ( Trista > 60 [facility] Comment on above: Result Comment: GFR estimated reference range: According to KDOQI guidelines, <60 ml/min/1.73m2 is sufficient to diagnose a patient with chronic kidney disease. Performed By: #### G LULS #### Point of Care testing , Estimated GFR (Non- Am > 60 [facility] Comment on above: Performed By: #### G LULS #### Point of Care testing , Glucose [Mass/Vol] 138 mg/dL High 70-100 [facility] Comment on above: Result Comment: [place] om Glucose Reference Range is dependent on time and content of last meal. Glucose of more than 200 mg/dL in a nonstressed, ambulatory subject supports the diagnosis of Diabetes Mellitus. ADA recommended reference range Performed By: #### G LULS #### Point of Care testing , Potassium [Moles/Vol] 3.9 mmol/L Normal 3.5-5.1 [facility] Comment on above: Performed By: #### G LULS #### Point of Care testing , Sodium [Moles/Vol] 139 mmol/L Normal 136-146 [facility] Comment on above: Performed By: #### G LULS #### Point of Care testing , Urea nitrogen [Mass/Vol] 6 mg/dL Low 9-23 [facility] Comment on above: Performed By: #### G LULS #### Point of Care testing , Basophils Auto (Bld) [#/Vol] Ordered By: Elham Mendoza on 11-24-2021 Basophils (Bld) [#/Vol] N/A [facility] Basophils/100 WBC Auto (Bld) Ordered By: Elham Mendoza on 11-24-2021 Basophils/100 WBC (Bld) N/A [facility] Blood anisocytosis detection Ordered By: Elham Mendoza on 11-24-2021 Anisocytosis Ql (Bld) Moderate [facility] Blood hemoglobin measurement (mass/volume)Ordered By: Elham Mendoza on 11-24-2021 Hemoglobin (Bld) [Mass/Vol] 11.4 g/dL 11.8-15.4 [facility] Blood leukocytes automated c ount (number/volume)Ordered By: Elham Mendoza on 11-24-2021 WBC (Bld) [#/Vol] 6.0 10*3/uL 4.5-11.0 [facility] Creatinine and Glomerular fi ltration rate.predicted panel (S/P/Bld)Ordered By: Elham Mendoza on 11-24-2021 Creatinine [Mass/Vol] 0.53 mg/dL 0.44-1.03 [facility] Diff and CBCon 11-24-2021 Anisocytosis Ql (Bld) Moderate Normal [facility] Comment on above: Performed By: #### G LULS #### Point of Care testing , Eosinophils/100 WBC (Bld) 2 % Normal 1-3 [facility] Comment on above: Performed By: #### G GELACIOLS #### Point of Care testing , Erythrocyte distribution width (RBC) [Ratio] 18.4 % High 11.9-15.3 [facility] Comment on above: Performed By: #### G LULS #### Point of Care testing , Hematocrit (Bld) [Volume fraction] 34.9 % Normal 34.0-46.4 [facility] Comment on above: Performed By: #### G LULS #### Point of Care testing , Hemoglobin (Bld) [Mass/Vol] 11.4 g/dL Low 11.8-15.4 [facility] Comment on above: Performed By: #### G GELACIOLS #### Point of Care testing , Lymphocytes/100 WBC (Bld) 35 % Normal 18-42 [facility] Comment on above: Performed By: #### G LULS #### Point of Care testing , MCH (RBC) [Entitic mass] 29.9 pg Normal 24.7-34.3 [facility] Comment on above: Performed By: #### G LULS #### Point of Care testing , MCV (RBC) [Entitic vol] 91.2 fL Normal 80-100 [facility] Comment on above: Performed By: #### G LULS #### Point of Care testing , Mean Corpuscular HGB Conc 32.8 g/dL Normal 32.0-35.0 [facility] Comment on above: Performed By: #### G GELACIOLS #### Point of Care testing , Monocytes/100 WBC (Bld) 7 % Normal 2-11 [facility] Comment on above: Performed By: #### G GELACIOLS #### Point of Care testing , Myelocytes 1 % High 0-0 [facility] Comment on above: Performed By: #### G LULS #### Point of Care testing , Nucleated RBC/100 WBC (Bld) [Ratio] 0.5 % Normal 0-0.5 [facility] Comment on above: Result Comment: PERF ORMED BY: [facility] [address] [place] [address] PATHOLOGIST FRONT TENDER FLIP GERMAN M.D. Performed By: #### G LULS #### Point of Care testing , Platelet Estimate Normal Normal Normal [facility] Comment on above: Performed By: #### G LULS #### Point of Care testing , Platelet mean volume (Bld) [Entitic vol] 8.8 fL Normal 6.3-10.7 [facility] Comment on above: Performed By: #### G LULS #### Point of Care testing , Platelet Morphology Normal Normal Normal [facility] Comment on above: Result Comment: PERF ORMED BY: [facility] [place] [address] PATHOLOGIST FRONT TENDER FLIP GERMAN M.D. Performed By: #### G LULS #### Point of Care testing , Platelets (Bld) [#/Vol] 285 10*3/uL Normal 150-450 [facility] Comment on above: Performed By: #### G LULS #### Point of Care testing , RBC (Bld) [#/Vol] 3.82 10*6/uL Normal 3.60-5.00 [facility] Comment on above: Performed By: #### G GELACIOLS #### Point of Care testing , Reactive Lymphocytes 1 % Normal 0-12 [facility] Comment on above: Performed By: #### G LULS #### Point of Care testing , Segmented neutrophils/100 WBC (Bld) 54 % Normal 50-70 [facility] Comment on above: Performed By: #### G LULS #### Point of Care testing , WBC (Bld) [#/Vol] 6.0 10*3/uL Normal 4.5-11.0 [facility] Comment on above: Performed By: #### G LULS #### Point of Care testing , Eosinophils Auto (Bld) [#/Vo l]Ordered By: Elham Mendoza on 11-24-2021 Eosinophils (Bld) [#/Vol] N/A [facility] Eosinophils/100 WBC Auto (Bl d)Ordered By: Elham Mendoza on 11-24-2021 Eosinophils/100 WBC (Bld) N/A [facility] Erythrocyte distribution wid th Auto (RBC) [Ratio]Ordered By: Elham Mendoza on 11-24-2021 Erythrocyte distribution width (RBC) [Ratio] 18.4 % 11.9-15.3 [facility] Estimated glomerular filtrat ion rate (GFR) non- AmericanOrdered By: Elham Mendoza on 11-24-2021 GFR/1.73 sq M.predicted among non-blacks MDRD (S/P/Bld) [Vol rate/Area] > 60 mL/Min [facility] Glucose Poct Glucometerson 0 11-24-2021 Glucose [Mass/Vol] 139 mg/dL Normal [facility] Comment on above: Result Comment: [facility] Glucose Reference Range is dependent on time and content of last meal. Glucose of more than 200 mg/dL in a nonstressed, ambulatory subject supports the diagnosis of Diabetes Mellitus. PERFORMED BY: [facility] [place] [address] PATHOLOGIST FRONT TENDER FLIP GERMAN M.D. Performed By: #### G LULS #### Point of Care testing , Hematocrit Auto (Bld) [Volum e fraction]Ordered By: Elham Mendoza on 11-24-2021 Hematocrit (Bld) [Volume fraction] 34.9 % 34.0-46.4 [facility] Laboratory - Hematology and Cell countsOrdered By: Elham Mendoza on 11-24-2021 Nucleated RBC/100 WBC (Bld) [Ratio] 0.5 % 0-0.5 [facility] Lymphocytes Auto (Bld) [#/Vo l]Ordered By: Elham Mendoza on 11-24-2021 Lymphocytes (Bld) [#/Vol] N/A [facility] Lymphocytes/100 WBC Auto (Bl d)Ordered By: Elham Mendoza on 11-24-2021 Lymphocytes/100 WBC (Bld) N/A [facility] Lymphocytes/100 WBC (Bld) 35 % 18-42 [facility] Lymphocytes/100 WBC Manual c nt (Bld)Ordered By: Elham Mendoza on 11-24-2021 Lymphocytes/100 WBC (Bld) 1 % 0-12 [facility] MCH Auto (RBC) [Entitic mass ]Ordered By: Elham Mendoza on 11-24-2021 MCH (RBC) [Entitic mass] 29.9 pg 24.7-34.3 [facility] MCHC Auto (RBC) [Mass/Vol]Or dered By: Elham Mendoza on 11-24-2021 MCHC (RBC) [Mass/Vol] 32.8 g/dL 32.0-35.0 [facility] MCV Auto (RBC) [Entitic vol] Ordered By: Elham Mendoza on 11-24-2021 MCV (RBC) [Entitic vol] 91.2 fL 80-100 [facility] Monocyte %Ordered By: Elham Mendoza on 11-24-2021 Monocytes/100 WBC (Bld) 2 % 1-3 [facility] Monocytes Auto (Bld) [#/Vol] Ordered By: Elham Mendoza on 11-24-2021 Monocytes (Bld) [#/Vol] N/A [facility] Monocytes/100 WBC Auto (Bld) Ordered By: Elham Mendoza on 11-24-2021 Monocytes/100 WBC (Bld) N/A [facility] Monocytes/100 WBC Manual cnt (Bld)Ordered By: Elham Mendoza on 11-24-2021 Monocytes/100 WBC (Bld) 7 % 2-11 [facility] Myelocytes/100 WBC Manual cn t (Bld)Ordered By: Elham Mendoza on 11-24-2021 Myelocytes/100 WBC (Bld) 1 % 0-0 [facility] Neutrophils Auto (Bld) [#/Vo l]Ordered By: Elham Mendoza on 11-24-2021 Neutrophils (Bld) [#/Vol] N/A [facility] Neutrophils/100 WBC Auto (Bl d)Ordered By: Elham Mendoza on 11-24-2021 Neutrophils/100 WBC (Bld) N/A [facility] No Panel InformationOrdered By: Elham Mendoza on 11-24-2021 Estimated GFR () > 60 mL/Min [facility] Comment on above: GFR estimated refere nce range: According to KDOQI guidelines, <60 ml/min/1.73m2 is sufficient to diagnose a patient with chronic kidney disease. Pharmacy Creatinine Clearance (Chem 64.37 [facility] Platelet Estimate Normal Normal [facility] Platelet Morphology Comment Normal Normal [facility] Platelet mean volume Auto (B ld) [Entitic vol]Ordered By: Elham Mendoza on 11-24-2021 Platelet mean volume (Bld) [Entitic vol] 8.8 fL 6.3-10.7 [facility] Platelets Auto (Bld) [#/Vol] Ordered By: Elham Mendoza on 11-24-2021 Platelets (Bld) [#/Vol] 285 10*3/uL 150-450 [facility] Prothrombin Time INRon 11-24 INR Coag (PPP) [Relative time] 2.6 {INR} Normal [facility] Comment on above: Order Comment: FIRST [...] heart valves: 3 - 4.5 PERFORMED BY: [facility] [address] [id number] PATHOLOGIST FRONT TENDER FLIP GERMAN M.D. Performed By: #### P T ####[id number] [facility] PT Coag (PPP) [Time] 29.3 s High 9.0-12.9 [facility] Comment on above: Order Comment: FIRST SPECIMEN HEMOLYZED Performed By: #### P T ####[id number] [id number] [facility] RBC Auto (Bld) [#/Vol]Ordere d By: Elham Mendoza on 11-24-2021 RBC (Bld) [#/Vol] 3.82 10*6/uL 3.60-5.00 [facility] RBC morphologyOrdered By: Pramod Mendoza on 11-24-2021 RBC morphology finding Nom (Bld) N/A [facility] Segmented neutrophils/100 WB C Manual cnt (Bld)Ordered By: Elham Mendoza on 11-24-2021 Segmented neutrophils/100 WBC (Bld) 54 % 50-70 [facility] Serum or plasma anion gap de terminationOrdered By: Elham Mendoza on 11-24-2021 Anion gap [Moles/Vol] 11.8 mmol/L 6.0-15.0 [facility] Serum or plasma calcium alondra urement (mass/volume)Ordered By: Elham Mendoza on 11-24-2021 Calcium [Mass/Vol] 8.7 mg/dL 8.2-10.2 [facility] Serum or plasma chloride link surement (moles/volume)Ordered By: Elham Mendoza on 11-24-2021 Chloride [Moles/Vol] 103 mmol/L 95-114 [facility] Serum or plasma glucose alondra urement (mass/volume)Ordered By: Elham Mendoza on 11-24-2021 Glucose [Mass/Vol] 138 mg/dL 70-100 [facility] Comment on above: ADA recommended refe rence [...] on 11-24-2021 Potassium [Moles/Vol] 3.9 mmol/L 3.5-5.1 [facility] Serum or plasma sodium measu rement (moles/volume)Ordered By: Elham Mendoza on 11-24-2021 Sodium [Moles/Vol] 139 mmol/L 136-146 [facility] Serum or plasma total carbon dioxide measurement (moles/volume)Ordered By: Elham Mendoza on 11-24-2021 CO2 [Moles/Vol] 28.1 mmol/L 22.0-30.0 [facility] Serum or plasma urea nitroge n measurement (mass/volume)Ordered By: Elham Mendoza on 11-24-2021 Urea nitrogen [Mass/Vol] 6 mg/dL 9-23 [facility] Glucose Poct Glucometerson 0 11-23-2021 Glucose [Mass/Vol] 157 mg/dL Normal [facility] Comment on above: Result Comment: [place] om Glucose Reference Range is dependent on time and content of last meal. Glucose of more than 200 mg/dL in a nonstressed, ambulatory subject supports the diagnosis of Diabetes Mellitus. PERFORMED BY: [address] [place] [address] PATHOLOGIST FRONT TENDER FLIP GERMAN M.D. Performed By: #### G LULS #### Point of Care testing , Prothrombin Time INRon 11-23 INR Coag (PPP) [Relative time] 2.9 {INR} Normal [facility] Comment on above: Order Comment: List [...] heart valves: 3 - 4.5 PERFORMED BY: [address] [address] [place] [address] PATHOLOGIST FRONT TENDER FLIP GERMAN M.D. Performed By: #### G LULS #### Point of Care testing , PT Coag (PPP) [Time] 33.5 s High 9.0-12.9 [facility] Comment on above: Order Comment: List the anticoagulant: COUMADIN/WARFARIN Performed By: #### G LULS #### Point of Care testing , Glucose Poct Glucometerson 0 11-22-2021 Glucose [Mass/Vol] 161 mg/dL Normal [facility] Comment on above: Result Comment: [facility] Glucose Reference Range is dependent on time and content of last meal. Glucose of more than 200 mg/dL in a nonstressed, ambulatory subject supports the diagnosis of Diabetes Mellitus. PERFORMED BY: [address] [place] [address] PATHOLOGIST FRONT TENDER FLIP GERMAN M.D. Performed By: #### G LULS #### Point of Care testing , Glucose [Mass/Vol] 112 mg/dL Normal [facility] Comment on above: Result Comment: [facility] Glucose Reference Range is dependent on time and content of last meal. Glucose of more than 200 mg/dL in a nonstressed, ambulatory subject supports the diagnosis of Diabetes Mellitus. PERFORMED BY: [address] [place] [place] [id number] PATHOLOGIST FRONT TENDER FLIP GERMAN M.D. Performed By: #### G LULS #### Point of Care testing , Prothrombin Time INRon 11-22 INR Coag (PPP) [Relative time] 2.1 {INR} Normal [facility] Comment on above: Order Comment: List [...] heart valves: 3 - 4.5 PERFORMED BY: [address] [place] [id number] PATHOLOGIST FRONT TENDER FLIP GERMAN M.D. Performed By: #### G LULS #### Point of Care testing , PT Coag (PPP) [Time] 24.4 s High 9.0-12.9 [facility] Comment on above: Order Comment: List the anticoagulant: COUMADIN/WARFARIN Performed By: #### G LULS #### Point of Care testing , Glucose Poct Glucometerson 0 11-21-2021 Commemt1 Glu2: Cleaned Meter Normal [facility] Comment on above: Result Comment: PERF ORMED BY: [address] [place] [id number] PATHOLOGIST FRONT TENDER FLIP GERMAN M.D. Performed By: #### G LULS #### Point of Care testing , Glucose [Mass/Vol] 130 mg/dL Normal [facility] Comment on above: Result Comment: [facility] Glucose Reference Range is dependent on time and content of last meal. Glucose of more than 200 mg/dL in a nonstressed, ambulatory subject supports the diagnosis of Diabetes Mellitus. Performed By: #### G LULS #### Point of Care testing , No Panel InformationOrdered By: Alcides Moya on 11-21-2021 Bedside Glucose Comment Glu2: cleaned meter [facility] Prothrombin Time INRon 11-21 INR Coag (PPP) [Relative time] 1.9 {INR} Normal [facility] Comment on above: Order Comment: List [...] heart valves: 3 - 4.5 PERFORMED BY: [address] [place] [address] PATHOLOGIST FRONT TENDER FLIP GERMAN M.D. Performed By: #### G LULS #### Point of Care testing , PT Coag (PPP) [Time] 21.8 s High 9.0-12.9 [facility] Comment on above: Order Comment: List the anticoagulant: COUMADIN/WARFARIN Performed By: #### G LULS #### Point of Care testing , Glucose Poct Glucometerson 0 11-20-2021 Commemt1 Glu2: Cleaned Meter [facility] Comment on above: Result Comment: PERF ORMED BY: [facility] [address] [place] [address] PATHOLOGIST FRONT TENDER FLIP GERMAN M.D. Performed By: #### G LULS #### Point of Care testing , Glucose [Mass/Vol] 112 mg/dL [facility] Comment on above: Result Comment: [place] Glucose Reference Range is dependent on time and content of last meal. Glucose of more than 200 mg/dL in a nonstressed, ambulatory subject supports the diagnosis of Diabetes Mellitus. Performed By: #### G LULS #### Point of Care testing , Glucose [Mass/Vol] 129 mg/dL Normal [facility] Comment on above: Result Comment: [place] Glucose Reference Range is dependent on time and content of last meal. Glucose of more than 200 mg/dL in a nonstressed, ambulatory subject supports the diagnosis of Diabetes Mellitus. PERFORMED BY: [address] [place] [address] PATHOLOGIST FRONT TENDER FLIP GERMAN M.D. Performed By: #### G LULS #### Point of Care testing , Prothrombin Time INRon 11-20 INR Coag (PPP) [Relative time] 2.3 {INR} Normal [facility] Comment on above: Order Comment: List [...] heart valves: 3 - 4.5 PERFORMED BY: [address] [address] PATHOLOGIST FRONT TENDER FLIP GERMAN M.D. Performed By: #### G LULS #### Point of Care testing , PT Coag (PPP) [Time] 26.6 s High 9.0-12.9 [facility] Comment on above: Order Comment: List the anticoagulant: COUMADIN/WARFARIN Performed By: #### G LULS #### Point of Care testing , CT biopsyOrdered By: Amanda viveros on 11-19-2021 Transferrin [Mass/Vol] 173 mg/dL 180-380 [facility] Glucose Poct Glucometerson 0 11-19-2021 Glucose [Mass/Vol] 122 mg/dL Normal [facility] Comment on above: Result Comment: [place] om Glucose Reference Range is dependent on time and content of last meal. Glucose of more than 200 mg/dL in a nonstressed, ambulatory subject supports the diagnosis of Diabetes Mellitus. PERFORMED BY: [address] [place] [id number] PATHOLOGIST FRONT TENDER FLIP GERMAN M.D. Performed By: #### G LULS #### Point of Care testing , Iron [Mass/volume] in Serum or PlasmaOrdered By: Amanda Jaimes on 11-19-2021 Iron [Mass/Vol] 56 ug/dL 40-150 [facility] Iron and TIBC Profileon % Iron Saturation 23.0 % Normal 20-50 [facility] Comment on above: Performed By: #### F E and TIBC ####[id number] [place] [address] [facility] Iron [Mass/Vol] 56 ug/dL Normal 40-150 [facility] Comment on above: Performed By: #### F E and TIBC ####[id number] [place] [address] [facility] Total Iron Binding Capacity 242 ug/dL Low 255-450 [facility] Comment on above: Performed By: #### F E and TIBC ####[address] [address] [facility] Transferrin [Mass/Vol] 173 mg/dL Low 180-380 [facility] Comment on above: Result Comment: PERF ORMED BY: [facility] [address] [place] [id number] PATHOLOGIST FRONT TENDER FLIP GERMAN M.D. Performed By: #### F E and TIBC ####[place] [id number] [facility] Iron binding capacity [Mass/ volume] in Serum or PlasmaOrdered By: Amanda Jaimes on 11-19-2021 Iron binding capacity [Mass/Vol] 242 ug/dL 255-450 [facility] Iron saturation [Mass Fracti on] in Serum or PlasmaOrdered By: Amanda Jaimes on 11-19-2021 Iron saturation [Mass fraction] 23.0 % 20-50 [facility] Prothrombin Time INRon 11-19 INR Coag (PPP) [Relative time] 2.5 {INR} Normal [facility] Comment on above: Order Comment: List [...] heart valves: 3 - 4.5 PERFORMED BY: [facility] [address] [place] [id number] PATHOLOGIST FRONT TENDER FLIP GERMAN M.D. Performed By: #### P T ####[id number] [place] [id number] [facility] PT Coag (PPP) [Time] 28.4 s High 9.0-12.9 [facility] Comment on above: Order Comment: List the anticoagulant: COUMADIN/WARFARIN Performed By: #### P T ####[id number] [place] [id number] [facility] Basic Metabolic Panelon 09-0 -2021 Anion gap [Moles/Vol] 12.3 mmol/L Normal 6.0-15.0 [facility] Comment on above: Performed By: #### G LULS #### Point of Care testing , Calcium [Mass/Vol] 8.8 mg/dL Normal 8.2-10.2 [facility] Comment on above: Performed By: #### G LULS #### Point of Care testing , Chloride [Moles/Vol] 101 mmol/L Normal 95-114 [facility] Comment on above: Performed By: #### G LULS #### Point of Care testing , CO2 [Moles/Vol] 30.7 mmol/L High 22.0-30.0 [facility] Comment on above: Performed By: #### G LULS #### Point of Care testing , Creatinine [Mass/Vol] 0.53 mg/dL Normal 0.44-1.03 [facility] Comment on above: Performed By: #### G LULS #### Point of Care testing , Creatinine Clr Calc Pharmacy 64.26 [facility] Comment on above: Result Comment: PERF ORMED BY: [facility] [address] [place] [address] PATHOLOGIST FRONT TENDER FLIP GERMAN M.D. Performed By: #### G LULS #### Point of Care testing , Estimated GFR ( Trista > 60 Normal [facility] Comment on above: Result Comment: GFR estimated reference range: According to KDOQI guidelines, <60 ml/min/1.73m2 is sufficient to diagnose a patient with chronic kidney disease. Performed By: #### G LULS #### Point of Care testing , Estimated GFR (Non- Am > 60 Normal [facility] Comment on above: Performed By: #### G LULS #### Point of Care testing , Glucose [Mass/Vol] 131 mg/dL High 70-100 [facility] Comment on above: Result Comment: [place] om Glucose Reference Range is dependent on time and content of last meal. Glucose of more than 200 mg/dL in a nonstressed, ambulatory subject supports the diagnosis of Diabetes Mellitus. ADA recommended reference range Performed By: #### G LULS #### Point of Care testing , Potassium [Moles/Vol] 4.0 mmol/L Normal 3.5-5.1 [facility] Comment on above: Performed By: #### G LULS #### Point of Care testing , Sodium [Moles/Vol] 140 mmol/L Normal 136-146 [facility] Comment on above: Performed By: #### G LULS #### Point of Care testing , Urea nitrogen [Mass/Vol] 8 mg/dL Low 9-23 [facility] Comment on above: Performed By: #### G LULS #### Point of Care testing , Complete Blood Count Auto Di ffon 11-18-2021 Basophils (Bld) [#/Vol] 0.0 10*3/uL Normal 0.0-0.2 [facility] Comment on above: Result Comment: PERF ORMED BY: [facility] [address] [place] [address] PATHOLOGIST FRONT TENDER FLIP GERMAN M.D. Performed By: #### G LULS #### Point of Care testing , Basophils/100 WBC (Bld) 0.5 % Normal . [facility] Comment on above: Performed By: #### Charles SOSA #### Point of Care testing , Eosinophils (Bld) [#/Vol] 0.2 10*3/uL Normal 0.0-0.45 [facility] Comment on above: Performed By: #### Charles SOSA #### Point of Care testing , Eosinophils/100 WBC (Bld) 4.0 % Normal . [facility] Comment on above: Performed By: #### Charles BRIZUELALS #### Point of Care testing , Erythrocyte distribution width (RBC) [Ratio] 17.8 % High 11.9-15.3 [facility] Comment on above: Performed By: #### Charles SOSA #### Point of Care testing , Hematocrit (Bld) [Volume fraction] 33.3 % Low 34.0-46.4 [facility] Comment on above: Performed By: #### Charles SOSA #### Point of Care testing , Hemoglobin (Bld) [Mass/Vol] 10.9 g/dL Low 11.8-15.4 [facility] Comment on above: Performed By: #### Charles SOSA #### Point of Care testing , Lymphocytes (Bld) [#/Vol] 2.2 10*3/uL Normal 1.00-4.8 [facility] Comment on above: Performed By: #### Charles SOSA #### Point of Care testing , Lymphocytes/100 WBC (Bld) 40.3 % Normal . [facility] Comment on above: Performed By: #### Charles SOSA #### Point of Care testing , MCH (RBC) [Entitic mass] 29.8 pg Normal 24.7-34.3 [facility] Comment on above: Performed By: #### Charles SOSA #### Point of Care testing , MCV (RBC) [Entitic vol] 91.3 fL Normal 80-100 [facility] Comment on above: Performed By: #### Charles SOSA #### Point of Care testing , Mean Corpuscular HGB Conc 32.6 g/dL Normal 32.0-35.0 [facility] Comment on above: Performed By: #### G IAN #### Point of Care testing , Monocytes (Bld) [#/Vol] 0.7 10*3/uL Normal 0.0-0.8 [facility] Comment on above: Performed By: #### G GELACIOLS #### Point of Care testing , Monocytes/100 WBC (Bld) 12.3 % Normal . [facility] Comment on above: Performed By: #### G GELACIOLS #### Point of Care testing , Neutrophils (Bld) [#/Vol] 2.3 10*3/uL Normal 1.8-7.7 [facility] Comment on above: Performed By: #### G IAN #### Point of Care testing , Neutrophils/100 WBC (Bld) 42.9 % Normal . [facility] Comment on above: Performed By: #### Charles BRIZUELALS #### Point of Care testing , Nucleated RBC/100 WBC (Bld) [Ratio] 0.1 % Normal 0-0.5 [facility] Comment on above: Performed By: #### Charles SOSA #### Point of Care testing , Platelet mean volume (Bld) [Entitic vol] 8.5 fL Normal 6.3-10.7 [facility] Comment on above: Performed By: #### G IAN #### Point of Care testing , Platelets (Bld) [#/Vol] 224 10*3/uL Normal 150-450 [facility] Comment on above: Performed By: #### G IAN #### Point of Care testing , RBC (Bld) [#/Vol] 3.65 10*6/uL Normal 3.60-5.00 [facility] Comment on above: Performed By: #### G IAN #### Point of Care testing , WBC (Bld) [#/Vol] 5.5 10*3/uL Normal 4.5-11.0 [facility] Comment on above: Performed By: #### G IAN #### Point of Care testing , Glucose Poct Glucometerson 0 11-18-2021 Glucose [Mass/Vol] 134 mg/dL Normal [facility] Comment on above: Result Comment: [facility] Glucose Reference Range is dependent on time and content of last meal. Glucose of more than 200 mg/dL in a nonstressed, ambulatory subject supports the diagnosis of Diabetes Mellitus. PERFORMED BY: [facility] [address] [place] [address] PATHOLOGIST FRONT TENDER FLIP GERMAN M.D. Performed By: #### G LULS #### Point of Care testing , Prothrombin Time INRon 11-18 INR Coag (PPP) [Relative time] 2.5 {INR} Normal [facility] Comment on above: Order Comment: List [...] heart valves: 3 - 4.5 PERFORMED BY: [address] [place] [address] PATHOLOGIST FRONT TENDER FLIP GERMAN M.D. Performed By: #### G LULS #### Point of Care testing , PT Coag (PPP) [Time] 28.3 s High 9.0-12.9 [facility] Comment on above: Order Comment: List the anticoagulant: COUMADIN/WARFARIN Performed By: #### G LULS #### Point of Care testing , Glucose Poct Glucometerson 0 11-17-2021 Glucose [Mass/Vol] 124 mg/dL Normal [facility] Comment on above: Result Comment: [facility] Glucose Reference Range is dependent on time and content of last meal. Glucose of more than 200 mg/dL in a nonstressed, ambulatory subject supports the diagnosis of Diabetes Mellitus. PERFORMED BY: [facility] [address] [place] [address] PATHOLOGIST FRONT TENDER FLIP GERMAN M.D. Performed By: #### G LULS #### Point of Care testing , Prothrombin Time INRon 11-17 INR Coag (PPP) [Relative time] 2.7 {INR} Normal [facility] Comment on above: Order Comment: List [...] heart valves: 3 - 4.5 PERFORMED BY: [facility] [address] [place] [address] PATHOLOGIST FRONT TENDER FLIP GERMAN M.D. Performed By: #### P T ####[place] [id number] [facility] PT Coag (PPP) [Time] 30.8 s High 9.0-12.9 [facility] Comment on above: Order Comment: List the anticoagulant: COUMADIN/WARFARIN Performed By: #### P T ####[place] [id number] [facility] Glucose Poct Glucometerson 0 11-16-2021 Commemt1 Glu2: Cleaned Meter [facility] Comment on above: Result Comment: PERF ORMED BY: [facility] [address] [place] [id number] PATHOLOGIST FRONT TENDER FLIP GERMAN M.D. Performed By: #### G LULS #### Point of Care testing , Glucose [Mass/Vol] 125 mg/dL Normal [facility] Comment on above: Result Comment: [facility] Glucose Reference Range is dependent on time and content of last meal. Glucose of more than 200 mg/dL in a nonstressed, ambulatory subject supports the diagnosis of Diabetes Mellitus. Performed By: #### G LULS #### Point of Care testing , Prothrombin Time INRon 11-16 INR Coag (PPP) [Relative time] 2.9 {INR} Normal [facility] Comment on above: Order Comment: List [...] heart valves: 3 - 4.5 PERFORMED BY: [address] [place] [address] PATHOLOGIST FRONT TENDER FLIP GERMAN M.D. Performed By: #### G LULS #### Point of Care testing , PT Coag (PPP) [Time] 32.9 s High 9.0-12.9 [facility] Comment on above: Order Comment: List the anticoagulant: COUMADIN/WARFARIN Performed By: #### G LULS #### Point of Care testing , Glucose Poct Glucometerson 0 11-15-2021 Glucose [Mass/Vol] 145 mg/dL Normal [facility] Comment on above: Result Comment: [place] om Glucose Reference Range is dependent on time and content of last meal. Glucose of more than 200 mg/dL in a nonstressed, ambulatory subject supports the diagnosis of Diabetes Mellitus. PERFORMED BY: [address] [address] PATHOLOGIST FRONT TENDER FLIP GERMAN M.D. Performed By: #### G LULS #### Point of Care testing , Commemt1 Glu2: Cleaned Meter Normal [facility] Comment on above: Result Comment: PERF ORMED BY: [address] [place] [address] PATHOLOGIST FRONT TENDER FLIP GERMAN M.D. Performed By: #### G LULS #### Point of Care testing , Glucose [Mass/Vol] 131 mg/dL Normal [facility] Comment on above: Result Comment: [place] om Glucose Reference Range is dependent on time and content of last meal. Glucose of more than 200 mg/dL in a nonstressed, ambulatory subject supports the diagnosis of Diabetes Mellitus. Performed By: #### G LULS #### Point of Care testing , Commemt1 Glu2: Cleaned Meter [facility] Comment on above: Result Comment: PERF ORMED BY: [address] [place] [id number] PATHOLOGIST FRONT TENDER FLIP GERMAN M.D. Performed By: #### G LULS #### Point of Care testing , Glucose [Mass/Vol] 201 mg/dL Normal [facility] Comment on above: Result Comment: [place] om Glucose Reference Range is dependent on time and content of last meal. Glucose of more than 200 mg/dL in a nonstressed, ambulatory subject supports the diagnosis of Diabetes Mellitus. Performed By: #### G LULS #### Point of Care testing , Commemt1 Glu2: Cleaned Meter Normal [facility] Comment on above: Result Comment: PERF ORMED BY: [address] [place] [id number] PATHOLOGIST FRONT TENDER FLIP GERMAN M.D. Performed By: #### G LULS #### Point of Care testing , Glucose [Mass/Vol] 184 mg/dL Normal [facility] Comment on above: Result Comment: [place] Glucose Reference Range is dependent on time and content of last meal. Glucose of more than 200 mg/dL in a nonstressed, ambulatory subject supports the diagnosis of Diabetes Mellitus. Performed By: #### G LULS #### Point of Care testing , Prothrombin Time INRon 11-15 INR Coag (PPP) [Relative time] 2.4 {INR} Normal [facility] Comment on above: Order Comment: List [...] heart valves: 3 - 4.5 PERFORMED BY: [address] [place] [id number] PATHOLOGIST FRONT TENDER FLIP GERMAN M.D. Performed By: #### G LULS #### Point of Care testing , PT Coag (PPP) [Time] 27.8 s High 9.0-12.9 [facility] Comment on above: Order Comment: List the anticoagulant: COUMADIN/WARFARIN Performed By: #### G LULS #### Point of Care testing , Glucose Poct Glucometerson 0 11-14-2021 Commemt1 Glu2: Cleaned Meter Normal [facility] Comment on above: Result Comment: PERF ORMED BY: [facility] [address] [place] [address] PATHOLOGIST FRONT TENDER FLIP GERMAN M.D. Performed By: #### G LULS #### Point of Care testing , Glucose [Mass/Vol] 152 mg/dL Normal [facility] Comment on above: Result Comment: [facility] Glucose Reference Range is dependent on time and content of last meal. Glucose of more than 200 mg/dL in a nonstressed, ambulatory subject supports the diagnosis of Diabetes Mellitus. Performed By: #### G LULS #### Point of Care testing , Glucose [Mass/Vol] 179 mg/dL Normal [facility] Comment on above: Result Comment: [facility] Glucose Reference Range is dependent on time and content of last meal. Glucose of more than 200 mg/dL in a nonstressed, ambulatory subject supports the diagnosis of Diabetes Mellitus. PERFORMED BY: [facility] [address] [place] [address] PATHOLOGIST FRONT TENDER FLIP GERMAN M.D. Performed By: #### G LULS #### Point of Care testing , Glucose [Mass/Vol] 211 mg/dL Normal [facility] Comment on above: Result Comment: [facility] Glucose Reference Range is dependent on time and content of last meal. Glucose of more than 200 mg/dL in a nonstressed, ambulatory subject supports the diagnosis of Diabetes Mellitus. PERFORMED BY: [address] [place] [address] PATHOLOGIST FRONT TENDER FLIP GERMAN M.D. Performed By: #### G LULS #### Point of Care testing , Glucose [Mass/Vol] 184 mg/dL Normal [facility] Comment on above: Result Comment: [place] Glucose Reference Range is dependent on time and content of last meal. Glucose of more than 200 mg/dL in a nonstressed, ambulatory subject supports the diagnosis of Diabetes Mellitus. PERFORMED BY: [facility] [address] [place] [address] PATHOLOGIST FRONT TENDER FLIP GERMAN M.D. Performed By: #### G LULS #### Point of Care testing , Prothrombin Time INRon 11-14 INR Coag (PPP) [Relative time] 2.2 {INR} Normal [facility] Comment on above: Order Comment: List [...] heart valves: 3 - 4.5 PERFORMED BY: [facility] [address] [place] [address] PATHOLOGIST FRONT TENDER FLIP GERMAN M.D. Performed By: #### G LULS #### Point of Care testing , PT Coag (PPP) [Time] 25.7 s High 9.0-12.9 [facility] Comment on above: Order Comment: List the anticoagulant: COUMADIN/WARFARIN Performed By: #### G LULS #### Point of Care testing , Glucose Glucometer (BldC) [M ass/Vol]Ordered By: Alcides Moya on 11-13-2021 Glucose [Mass/Vol] 146 mg/dL [facility] Comment on above: Random Glucose Refer ence Range is dependent on time and content of last meal. Glucose of more than 200 mg/dL in a nonstressed, ambulatory subject supports the diagnosis of Diabetes Mellitus. Glucose Poct Glucometerson 0 11-13-2021 Glucose [Mass/Vol] 146 mg/dL Normal [facility] Comment on above: Result Comment: [place] om Glucose Reference Range is dependent on time and content of last meal. Glucose of more than 200 mg/dL in a nonstressed, ambulatory subject supports the diagnosis of Diabetes Mellitus. PERFORMED BY: [address] [place] [address] PATHOLOGIST FRONT TENDER FLIP GERMAN M.D. Performed By: #### G LULS ####Point of Care testing, Commemt1 Glu2: Cleaned Meter [facility] Comment on above: Result Comment: PERF ORMED BY: [address] [place] [address] PATHOLOGIST FRONT TENDER FLIP GERMAN M.D. Performed By: #### G LULS ####Point of Care testing, Glucose [Mass/Vol] 128 mg/dL Normal [facility] Comment on above: Result Comment: [place] om Glucose Reference Range is dependent on time and content of last meal. Glucose of more than 200 mg/dL in a nonstressed, ambulatory subject supports the diagnosis of Diabetes Mellitus. Performed By: #### G LULS ####Point of Care testing, Commemt1 Glu2: Cleaned Meter [facility] Comment on above: Result Comment: PERF ORMED BY: [address] [place] [address] PATHOLOGIST FRONT TENDER FLIP GERMAN M.D. Performed By: #### G LULS #### Point of Care testing , Glucose [Mass/Vol] 145 mg/dL Normal [facility] Comment on above: Result Comment: [place] om Glucose Reference Range is dependent on time and content of last meal. Glucose of more than 200 mg/dL in a nonstressed, ambulatory subject supports the diagnosis of Diabetes Mellitus. Performed By: #### G LULS #### Point of Care testing , Commemt1 Glu2: Cleaned Meter [facility] Comment on above: Result Comment: PERF ORMED BY: [address] [place] [id number] PATHOLOGIST FRONT TENDER FLIP GERMAN M.D. Performed By: #### G LULS #### Point of Care testing , Glucose [Mass/Vol] 122 mg/dL Normal [facility] Comment on above: Result Comment: [place] Glucose Reference Range is dependent on time and content of last meal. Glucose of more than 200 mg/dL in a nonstressed, ambulatory subject supports the diagnosis of Diabetes Mellitus. Performed By: #### G LULS #### Point of Care testing , Glucose [Mass/Vol] 116 mg/dL Normal [facility] Comment on above: Result Comment: [place] om Glucose Reference Range is dependent on time and content of last meal. Glucose of more than 200 mg/dL in a nonstressed, ambulatory subject supports the diagnosis of Diabetes Mellitus. PERFORMED BY: [facility] [address] [place] [address] PATHOLOGIST FRONT TENDER FLIP GERMAN M.D. Performed By: #### G LULS ####Point of Care testing, No Panel InformationOrdered By: Alcides Moya on 11-13-2021 Bedside Glucose Comment Glu2: cleaned meter [facility] Platelet poor plasma interna tional normalized ratio (INR) by coagulation assay (relatOrdered By: Alcides Moya on 11-13-2021 INR Coag (PPP) [Relative time] 2.6 {INR} Normal [facility] Comment on above: INR Therapeutic Rang [...] heart valves: 3 - 4.5 PERFORMED BY: [facility] [address] [place] [id number] PATHOLOGIST FRONT TENDER FLIP GERMAN M.D. Performed By: #### P T ####[facility] [place] [address] [facility] Prothrombin Time INROrdered By: Alcides Moya on 11-13-2021 PT Coag (PPP) [Time] 29.5 s High 9.0-12.9 [facility] Comment on above: Order Comment: List the anticoagulant: COUMADIN/WARFARIN Performed By: #### P T ####[place] [id number] [place] [id number] [facility] Albumin [Mass/volume] in Ser um or PlasmaOrdered By: Alcides Moya on 11-12-2021 Albumin [Mass/Vol] 3.1 g/dL 3.2-5.5 [facility] Basophils Auto (Bld) [#/Vol] Ordered By: Alcides Moya on 11-12-2021 Basophils (Bld) [#/Vol] 0.0 10*3/uL 0.0-0.2 [facility] Basophils/100 WBC Auto (Bld) Ordered By: Alcides Moya on 11-12-2021 Basophils/100 WBC (Bld) 0.5 % . [facility] Blood hemoglobin measurement (mass/volume)Ordered By: Alcides Moya on 11-12-2021 Hemoglobin (Bld) [Mass/Vol] 12.5 g/dL 11.8-15.4 [facility] Blood leukocytes automated c ount (number/volume)Ordered By: Alcides Moya on 11-12-2021 WBC (Bld) [#/Vol] 5.0 10*3/uL 4.5-11.0 [facility] Complete Blood Count Auto Di ffon 11-12-2021 Basophils (Bld) [#/Vol] 0.0 10*3/uL Normal 0.0-0.2 [facility] Comment on above: Result Comment: PERF ORMED BY: [facility] [address] [place] [address] PATHOLOGIST FRONT TENDER FLIP GERMAN M.D. Performed By: #### G GELACIOLS #### Point of Care testing , Basophils/100 WBC (Bld) 0.5 % Normal . [facility] Comment on above: Performed By: #### G GELACIOLS #### Point of Care testing , Eosinophils (Bld) [#/Vol] 0.2 10*3/uL Normal 0.0-0.45 [facility] Comment on above: Performed By: #### G GELACIOLS #### Point of Care testing , Eosinophils/100 WBC (Bld) 3.8 % Normal . [facility] Comment on above: Performed By: #### G GELACIOLS #### Point of Care testing , Erythrocyte distribution width (RBC) [Ratio] 17.3 % High 11.9-15.3 [facility] Comment on above: Performed By: #### G GELACIOLS #### Point of Care testing , Hematocrit (Bld) [Volume fraction] 38.9 % Normal 34.0-46.4 [facility] Comment on above: Performed By: #### G GELACIOLS #### Point of Care testing , Hemoglobin (Bld) [Mass/Vol] 12.5 g/dL Normal 11.8-15.4 [facility] Comment on above: Performed By: #### G GELACIOLS #### Point of Care testing , Lymphocytes (Bld) [#/Vol] 2.0 10*3/uL Normal 1.00-4.8 [facility] Comment on above: Performed By: #### G GELACIOLS #### Point of Care testing , Lymphocytes/100 WBC (Bld) 39.7 % Normal . [facility] Comment on above: Performed By: #### G GELACIOLS #### Point of Care testing , MCH (RBC) [Entitic mass] 29.2 pg Normal 24.7-34.3 [facility] Comment on above: Performed By: #### G GELACIOLS #### Point of Care testing , MCV (RBC) [Entitic vol] 90.6 fL Normal 80-100 [facility] Comment on above: Performed By: #### G GELAICOLS #### Point of Care testing , Mean Corpuscular HGB Conc 32.2 g/dL Normal 32.0-35.0 [facility] Comment on above: Performed By: #### Charles SOSA #### Point of Care testing , Monocytes (Bld) [#/Vol] 0.5 10*3/uL Normal 0.0-0.8 [facility] Comment on above: Performed By: #### Charles SOSA #### Point of Care testing , Monocytes/100 WBC (Bld) 10.1 % Normal . [facility] Comment on above: Performed By: #### Charles SOSA #### Point of Care testing , Neutrophils (Bld) [#/Vol] 2.3 10*3/uL Normal 1.8-7.7 [facility] Comment on above: Performed By: #### Charles SOSA #### Point of Care testing , Neutrophils/100 WBC (Bld) 45.9 % Normal . [facility] Comment on above: Performed By: #### Charles BRIZUELALS #### Point of Care testing , Nucleated RBC/100 WBC (Bld) [Ratio] 0.0 % Normal 0-0.5 [facility] Comment on above: Performed By: #### Charles SOSA #### Point of Care testing , Platelet mean volume (Bld) [Entitic vol] 8.6 fL Normal 6.3-10.7 [facility] Comment on above: Performed By: #### Charles SOSA #### Point of Care testing , Platelets (Bld) [#/Vol] 241 10*3/uL Normal 150-450 [facility] Comment on above: Performed By: #### Charles SOSA #### Point of Care testing , RBC (Bld) [#/Vol] 4.29 10*6/uL Normal 3.60-5.00 [facility] Comment on above: Performed By: #### Charles SOSA #### Point of Care testing , WBC (Bld) [#/Vol] 5.0 10*3/uL Normal 4.5-11.0 [facility] Comment on above: Performed By: #### G LULS #### Point of Care testing , Comprehensive Metabolic Pane loco 11-12-2021 Albumin [Mass/Vol] 3.1 g/dL Low 3.2-5.5 [facility] Comment on above: Performed By: #### G GELACIOLS #### Point of Care testing , Albumin/Globulin [Mass ratio] 0.8 {ratio} Normal [facility] Comment on above: Performed By: #### Charles BRIZUELALS #### Point of Care testing , ALP [Catalytic activity/Vol] 84 U/L Normal 32-92 [facility] Comment on above: Performed By: #### Charles SOSA #### Point of Care testing , ALT [Catalytic activity/Vol] 13 U/L Normal 10-60 [facility] Comment on above: Performed By: #### Charles SOSA #### Point of Care testing , Anion gap [Moles/Vol] 11.9 mmol/L Normal 6.0-15.0 [facility] Comment on above: Performed By: #### Charles BRIZUELALS #### Point of Care testing , AST [Catalytic activity/Vol] 22 U/L Normal 10-42 [facility] Comment on above: Performed By: #### Charles SOSA #### Point of Care testing , Bilirubin [Mass/Vol] 0.8 mg/dL Normal 0.3-1.2 [facility] Comment on above: Performed By: #### Charles SOSA #### Point of Care testing , Calcium [Mass/Vol] 9.2 mg/dL Normal 8.2-10.2 [facility] Comment on above: Performed By: #### Charles SOSA #### Point of Care testing , Chloride [Moles/Vol] 100 mmol/L Normal 95-114 [facility] Comment on above: Performed By: #### Charles SOSA #### Point of Care testing , CO2 [Moles/Vol] 31.0 mmol/L High 22.0-30.0 [facility] Comment on above: Performed By: #### Charles SOSA #### Point of Care testing , Creatinine [Mass/Vol] 0.55 mg/dL Normal 0.44-1.03 [facility] Comment on above: Performed By: #### G LULS #### Point of Care testing , Creatinine Clr Calc Pharmacy 64.44 [facility] Comment on above: Performed By: #### G LULS #### Point of Care testing , Estimated GFR ( Trista > 60 [facility] Comment on above: Result Comment: GFR estimated reference range: According to KDOQI guidelines, <60 ml/min/1.73m2 is sufficient to diagnose a patient with chronic kidney disease. Performed By: #### G LULS #### Point of Care testing , Estimated GFR (Non- Am > 60 [facility] Comment on above: Performed By: #### G LULS #### Point of Care testing , Globulin (S) [Mass/Vol] 3.7 g/dL [facility] Comment on above: Performed By: #### G LULS #### Point of Care testing , Glucose [Mass/Vol] 130 mg/dL High 70-100 [facility] Comment on above: Result Comment: [place] Glucose Reference Range is dependent on time and content of last meal. Glucose of more than 200 mg/dL in a nonstressed, ambulatory subject supports the diagnosis of Diabetes Mellitus. ADA recommended reference range Performed By: #### G LULS #### Point of Care testing , Potassium [Moles/Vol] 3.9 mmol/L Normal 3.5-5.1 [facility] Comment on above: Performed By: #### G LULS #### Point of Care testing , Protein [Mass/Vol] 6.8 g/dL Normal 6.1-7.9 [facility] Comment on above: Performed By: #### G GELACIOLS #### Point of Care testing , Sodium [Moles/Vol] 139 mmol/L Normal 136-146 [facility] Comment on above: Performed By: #### G LULS #### Point of Care testing , Urea nitrogen [Mass/Vol] 8 mg/dL Low 9-23 [facility] Comment on above: Performed By: #### G LULS #### Point of Care testing , Creatinine and Glomerular fi ltration rate.predicted panel (S/P/Bld)Ordered By: Alcides Moya on 11-12-2021 Creatinine [Mass/Vol] 0.55 mg/dL 0.44-1.03 [facility] Eosinophils Auto (Bld) [#/Vo l]Ordered By: Alcides Moya on 11-12-2021 Eosinophils (Bld) [#/Vol] 0.2 10*3/uL 0.0-0.45 [facility] Eosinophils/100 WBC Auto (Bl d)Ordered By: Alcieds Moya on 11-12-2021 Eosinophils/100 WBC (Bld) 3.8 % . [facility] Erythrocyte distribution wid th Auto (RBC) [Ratio]Ordered By: Alcides Moya on 11-12-2021 Erythrocyte distribution width (RBC) [Ratio] 17.3 % 11.9-15.3 [facility] Estimated glomerular filtrat ion rate (GFR) non- AmericanOrdered By: Alcides Moya on 11-12-2021 GFR/1.73 sq M.predicted among non-blacks MDRD (S/P/Bld) [Vol rate/Area] > 60 mL/Min [facility] Globulin Calc (S) [Mass/Vol] Ordered By: Alcides Moya on 11-12-2021 Globulin (S) [Mass/Vol] 3.7 g/dL [facility] Glucose Glucometer (BldC) [M ass/Vol]Ordered By: Alcides Moya on 11-12-2021 Glucose [Mass/Vol] 212 mg/dL [facility] Comment on above: Random Glucose Refer ence Range is dependent on time and content of last meal. Glucose of more than 200 mg/dL in a nonstressed, ambulatory subject supports the diagnosis of Diabetes Mellitus. Glucose Poct Glucometerson 0 11-12-2021 Glucose [Mass/Vol] 212 mg/dL Normal [facility] Comment on above: Result Comment: [place] Glucose Reference Range is dependent on time and content of last meal. Glucose of more than 200 mg/dL in a nonstressed, ambulatory subject supports the diagnosis of Diabetes Mellitus. PERFORMED BY: [facility] [place] [address] [place] [address] PATHOLOGIST FRONT TENDER FLIP GERMAN M.D. Performed By: #### G LULS #### Point of Care testing , Glucose [Mass/Vol] 293 mg/dL Normal [facility] Comment on above: Result Comment: [place] om Glucose Reference Range is dependent on time and content of last meal. Glucose of more than 200 mg/dL in a nonstressed, ambulatory subject supports the diagnosis of Diabetes Mellitus. PERFORMED BY: [address] [place] [address] PATHOLOGIST FRONT TENDER FLIP GERMAN M.D. Performed By: #### G LULS #### Point of Care testing , Commemt1 Glu2: Cleaned Meter [facility] Comment on above: Result Comment: PERF ORMED BY: [address] [place] [address] PATHOLOGIST FRONT TENDER FLIP GERMAN M.D. Performed By: #### G LULS #### Point of Care testing , Glucose [Mass/Vol] 204 mg/dL Normal [facility] Comment on above: Result Comment: [place] om Glucose Reference Range is dependent on time and content of last meal. Glucose of more than 200 mg/dL in a nonstressed, ambulatory subject supports the diagnosis of Diabetes Mellitus. Performed By: #### G LULS #### Point of Care testing , Commemt1 Glu2: Cleaned Meter [facility] Comment on above: Result Comment: PERF ORMED BY: [address] [place] [id number] PATHOLOGIST FRONT TENDER FLIP GERMAN M.D. Performed By: #### G LULS #### Point of Care testing , Glucose [Mass/Vol] 188 mg/dL Normal [facility] Comment on above: Result Comment: [place] om Glucose Reference Range is dependent on time and content of last meal. Glucose of more than 200 mg/dL in a nonstressed, ambulatory subject supports the diagnosis of Diabetes Mellitus. Performed By: #### G LULS #### Point of Care testing , Hematocrit Auto (Bld) [Volum e fraction]Ordered By: Alcides Moya on 11-12-2021 Hematocrit (Bld) [Volume fraction] 38.9 % 34.0-46.4 [facility] Laboratory - CoagulationOrde red By: Alcides Moya on 11-12-2021 PT Coag (PPP) [Time] 34.1 s 9.0-12.9 [facility] Laboratory - Hematology and Cell countsOrdered By: Alcides Moya on 11-12-2021 Nucleated RBC/100 WBC (Bld) [Ratio] 0.0 % 0-0.5 [facility] Lymphocytes Auto (Bld) [#/Vo l]Ordered By: Alcides Moya on 11-12-2021 Lymphocytes (Bld) [#/Vol] 2.0 10*3/uL 1.00-4.8 [facility] Lymphocytes/100 WBC Auto (Bl d)Ordered By: Alcides Moya on 11-12-2021 Lymphocytes/100 WBC (Bld) 39.7 % . [facility] MCH Auto (RBC) [Entitic mass ]Ordered By: Alcides Moya on 11-12-2021 MCH (RBC) [Entitic mass] 29.2 pg 24.7-34.3 [facility] MCHC Auto (RBC) [Mass/Vol]Or dered By: Alcides Moya on 11-12-2021 MCHC (RBC) [Mass/Vol] 32.2 g/dL 32.0-35.0 [facility] MCV Auto (RBC) [Entitic vol] Ordered By: Alcides Moya on 11-12-2021 MCV (RBC) [Entitic vol] 90.6 fL 80-100 [facility] Monocytes Auto (Bld) [#/Vol] Ordered By: Alcides Moya on 11-12-2021 Monocytes (Bld) [#/Vol] 0.5 10*3/uL 0.0-0.8 [facility] Monocytes/100 WBC Auto (Bld) Ordered By: Alcides Moya on 11-12-2021 Monocytes/100 WBC (Bld) 10.1 % . [facility] Neutrophils Auto (Bld) [#/Vo l]Ordered By: Alcides Moya on 11-12-2021 Neutrophils (Bld) [#/Vol] 2.3 10*3/uL 1.8-7.7 [facility] Neutrophils/100 WBC Auto (Bl d)Ordered By: Alcides Moya on 11-12-2021 Neutrophils/100 WBC (Bld) 45.9 % . [facility] No Panel InformationOrdered By: Alcides Moya on 11-12-2021 Bedside Glucose Comment Glu2: cleaned meter [facility] Estimated GFR () > 60 mL/Min [facility] Comment on above: GFR estimated refere nce range: According to KDOQI guidelines, <60 ml/min/1.73m2 is sufficient to diagnose a patient with chronic kidney disease. Pharmacy Creatinine Clearance (Chem 64.44 [facility] Platelet mean volume Auto (B ld) [Entitic vol]Ordered By: Alcides Moya on 11-12-2021 Platelet mean volume (Bld) [Entitic vol] 8.6 fL 6.3-10.7 [facility] Platelet poor plasma interna tional normalized ratio (INR) by coagulation assay (relatOrdered By: Alcides Moya on 11-12-2021 INR Coag (PPP) [Relative time] 3.0 {INR} [facility] Comment on above: INR Therapeutic Rang [...] 11-12-2021 Platelets (Bld) [#/Vol] 241 10*3/uL 150-450 [facility] Prealbuminon 11-12-2021 Prealbumin [Mass/Vol] 21.7 mg/dL Normal 18.0-38.0 [facility] Comment on above: Result Comment: PERF ORMED BY: [facility] [address] [place] [address] PATHOLOGIST FRONT TENDER FLIP GERMAN M.D. Performed By: #### G LULS #### Point of Care testing , Protein [Mass/volume] in Ser um or PlasmaOrdered By: Alcides Moya on 11-12-2021 Protein [Mass/Vol] 6.8 g/dL 6.1-7.9 [facility] Prothrombin Time INRon 11-12 INR Coag (PPP) [Relative time] 3.0 {INR} Normal [facility] Comment on above: Order Comment: List [...] heart valves: 3 - 4.5 PERFORMED BY: [facility] [address] [place] [address] PATHOLOGIST FRONT TENDER FLIP GERMAN M.D. Performed By: #### G IAN #### Point of Care testing , PT Coag (PPP) [Time] 34.1 s High 9.0-12.9 [facility] Comment on above: Order Comment: List the anticoagulant: COUMADIN/WARFARIN Performed By: #### G IAN #### Point of Care testing , RBC Auto (Bld) [#/Vol]Ordere d By: Alcides Moya on 11-12-2021 RBC (Bld) [#/Vol] 4.29 10*6/uL 3.60-5.00 [facility] Serum or plasma alanine engel otransferase measurement without P-5'-P (enzymatic activiOrdered By: Alcides Moya on 11-12-2021 ALT No additional P-5'-P [Catalytic activity/Vol] 13 U/L 10-60 [facility] Serum or plasma albumin/glob ulin mass ratioOrdered By: Alcides Moya on 11-12-2021 Albumin/Globulin [Mass ratio] 0.8 {ratio} [facility] Serum or plasma alkaline bouchra sphatase measurement (enzymatic activity/volume)Ordered By: Alcides Moya on 11-12-2021 ALP [Catalytic activity/Vol] 84 U/L 32-92 [facility] Serum or plasma anion gap de terminationOrdered By: Alcides Moya on 11-12-2021 Anion gap [Moles/Vol] 11.9 mmol/L 6.0-15.0 [facility] Serum or plasma aspartate am inotransferase measurement (enzymatic activity/volume)Ordered By: Alcides Moya on 11-12-2021 AST [Catalytic activity/Vol] 22 U/L 10-42 [facility] Serum or plasma calcium alondra urement (mass/volume)Ordered By: Alcides Moya on 11-12-2021 Calcium [Mass/Vol] 9.2 mg/dL 8.2-10.2 [facility] Serum or plasma chloride link surement (moles/volume)Ordered By: Alcides Moya on 11-12-2021 Chloride [Moles/Vol] 100 mmol/L 95-114 [facility] Serum or plasma glucose alondra urement (mass/volume)Ordered By: Alcides Moya on 11-12-2021 Glucose [Mass/Vol] 130 mg/dL 70-100 [facility] Comment on above: ADA recommended refe rence range Random Glucose Reference Range is dependent on time and content of last meal. Glucose of more than 200 mg/dL in a nonstressed, ambulatory subject supports the diagnosis of Diabetes Mellitus. Serum or plasma potassium me asurement (moles/volume)Ordered By: Alcides Moya on 11-12-2021 Potassium [Moles/Vol] 3.9 mmol/L 3.5-5.1 [facility] Serum or plasma prealbumin m easurement (mass/volume)Ordered By: Alcides Moya on 11-12-2021 Prealbumin [Mass/Vol] 21.7 mg/dL 18.0-38.0 [facility] Serum or plasma sodium measu rement (moles/volume)Ordered By: Alcides Moya on 11-12-2021 Sodium [Moles/Vol] 139 mmol/L 136-146 [facility] Serum or plasma total biliru bin measurement (mass/volume)Ordered By: Alcides Moya on 11-12-2021 Bilirubin [Mass/Vol] 0.8 mg/dL 0.3-1.2 [facility] Serum or plasma total carbon dioxide measurement (moles/volume)Ordered By: Alcides Moya on 11-12-2021 CO2 [Moles/Vol] 31.0 mmol/L 22.0-30.0 [facility] Serum or plasma urea nitroge n measurement (mass/volume)Ordered By: Alcides Moya on 11-12-2021 Urea nitrogen [Mass/Vol] 8 mg/dL 9- [facility] Glucose Glucometer (BldC) [M ass/Vol]Ordered By: Gaye Claire on 11-11-2021 Glucose [Mass/Vol] 127 mg/dL [facility] Comment on above: Random Glucose Refer ence Range is dependent on time and content of last meal. Glucose of more than 200 mg/dL in a nonstressed, ambulatory subject supports the diagnosis of Diabetes Mellitus. Glucose Poct Glucometerson 0 11-11-2021 Glucose [Mass/Vol] 168 mg/dL Normal [facility] Comment on above: Result Comment: [place] Glucose Reference Range is dependent on time and content of last meal. Glucose of more than 200 mg/dL in a nonstressed, ambulatory subject supports the diagnosis of Diabetes Mellitus. PERFORMED BY: [address] [place] [address] PATHOLOGIST FRONT TENDER FLIP GERMAN M.D. Performed By: #### G LULS #### Point of Care testing , Commemt1 Glu2: Cleaned Meter [facility] Comment on above: Result Comment: PERF ORMED BY: [facility] [address] [place] [address] PATHOLOGIST FRONT TENDER FLIP GERMAN M.D. Performed By: #### G LULS #### Point of Care testing , Glucose [Mass/Vol] 127 mg/dL Normal [facility] Comment on above: Result Comment: [place] om Glucose Reference Range is dependent on time and content of last meal. Glucose of more than 200 mg/dL in a nonstressed, ambulatory subject supports the diagnosis of Diabetes Mellitus. Performed By: #### G LULS #### Point of Care testing , Commemt1 Glu2: Cleaned Meter [facility] Comment on above: Result Comment: PERF ORMED BY: [facility] [address] [place] [address] PATHOLOGIST FRONT TENDER FLIP GERMAN M.D. Performed By: #### G LULS ####Point of Care testing, Glucose [Mass/Vol] 228 mg/dL Normal [facility] Comment on above: Result Comment: [place] om Glucose Reference Range is dependent on time and content of last meal. Glucose of more than 200 mg/dL in a nonstressed, ambulatory subject supports the diagnosis of Diabetes Mellitus. Performed By: #### G LULS ####Point of Care testing, Commemt1 Glu2: Cleaned Meter [facility] Comment on above: Result Comment: PERF ORMED BY: [facility] [address] [place] [address] PATHOLOGIST FRONT TENDER FLIP GERMAN M.D. Performed By: #### G LULS #### Point of Care testing , Glucose [Mass/Vol] 150 mg/dL Normal [facility] Comment on above: Result Comment: [place] om Glucose Reference Range is dependent on time and content of last meal. Glucose of more than 200 mg/dL in a nonstressed, ambulatory subject supports the diagnosis of Diabetes Mellitus. Performed By: #### G LULS #### Point of Care testing , Laboratory - CoagulationOrde red By: Enrrique Mota on 11-11-2021 PT Coag (PPP) [Time] 31.5 s 9.0-12.9 [facility] No Panel InformationOrdered By: Gaye Claire on 11-11-2021 Bedside Glucose Comment Glu2: cleaned meter [facility] Platelet poor plasma interna tional normalized ratio (INR) by coagulation assay (relatOrdered By: Enrrique Mota on 11-11-2021 INR Coag (PPP) [Relative time] 2.7 {INR} [facility] Comment on above: INR Therapeutic Rang [...] Coag (PPP) [Relative time] 2.7 {INR} Normal [facility] Comment on above: Result Comment: INR [...] heart valves: 3 - 4.5 PERFORMED BY: [address] [place] [address] PATHOLOGIST FRONT TENDER FLIP GERMAN M.D. Performed By: #### G IAN #### Point of Care testing , PT Coag (PPP) [Time] 31.5 s High 9.0-12.9 [facility] Comment on above: Performed By: #### G IAN #### Point of Care testing , Glucose Poct Glucometerson 0 11-10-2021 Glucose [Mass/Vol] 124 mg/dL Normal [facility] Comment on above: Result Comment: [facility] Glucose Reference Range is dependent on time and content of last meal. Glucose of more than 200 mg/dL in a nonstressed, ambulatory subject supports the diagnosis of Diabetes Mellitus. PERFORMED BY: [facility] [address] [place] [address] PATHOLOGIST FRONT TENDER FLIP GERMAN M.D. Performed By: #### G IAN #### Point of Care testing , Commemt1 Glu2: Cleaned Meter Normal [facility] Comment on above: Result Comment: PERF ORMED BY: [address] [place] [address] PATHOLOGIST FRONT TENDER FLIP GERMAN M.D. Performed By: #### G LULS #### Point of Care testing , Glucose [Mass/Vol] 143 mg/dL Normal [facility] Comment on above: Result Comment: [place] om Glucose Reference Range is dependent on time and content of last meal. Glucose of more than 200 mg/dL in a nonstressed, ambulatory subject supports the diagnosis of Diabetes Mellitus. Performed By: #### G LULS #### Point of Care testing , Commemt1 Glu2: Cleaned Meter [facility] Comment on above: Result Comment: PERF ORMED BY: [address] [place] [address] PATHOLOGIST FRONT TENDER FLIP GERMAN M.D. Performed By: #### G LULS #### Point of Care testing , Glucose [Mass/Vol] 190 mg/dL Normal [facility] Comment on above: Result Comment: [place] om Glucose Reference Range is dependent on time and content of last meal. Glucose of more than 200 mg/dL in a nonstressed, ambulatory subject supports the diagnosis of Diabetes Mellitus. Performed By: #### G LULS #### Point of Care testing , Commemt1 Glu2: Cleaned Meter [facility] Comment on above: Result Comment: PERF ORMED BY: [address] [place] [id number] PATHOLOGIST FRONT TENDER FLIP GERMAN M.D. Performed By: #### G LULS #### Point of Care testing , Glucose [Mass/Vol] 136 mg/dL Normal [facility] Comment on above: Result Comment: [place] om Glucose Reference Range is dependent on time and content of last meal. Glucose of more than 200 mg/dL in a nonstressed, ambulatory subject supports the diagnosis of Diabetes Mellitus. Performed By: #### G LULS #### Point of Care testing , Prothrombin Time INRon 08-30 -2022 INR Coag (PPP) [Relative time] 2.5 {INR} Normal [facility] Comment on above: Result Comment: INR [...] heart valves: 3 - 4.5 PERFORMED BY: [address] [place] [address] PATHOLOGIST FRONT TENDER FLIP GERMAN M.D. Performed By: #### G LULS #### Point of Care testing , PT Coag (PPP) [Time] 28.4 s High 9.0-12.9 [facility] Comment on above: Performed By: #### G LULS #### Point of Care testing , Glucose Poct Glucometerson 0 11-09-2021 Commemt1 Glu2: Cleaned Meter [facility] Comment on above: Result Comment: PERF ORMED BY: [address] [place] [address] PATHOLOGIST FRONT TENDER FLIP GERMAN M.D. Performed By: #### G LULS #### Point of Care testing , Glucose [Mass/Vol] 165 mg/dL [facility] Comment on above: Result Comment: [facility] Glucose Reference Range is dependent on time and content of last meal. Glucose of more than 200 mg/dL in a nonstressed, ambulatory subject supports the diagnosis of Diabetes Mellitus. Performed By: #### G LULS #### Point of Care testing , Commemt1 Glu2: Cleaned Meter [facility] Comment on above: Result Comment: PERF ORMED BY: [address] [place] [id number] PATHOLOGIST FRONT TENDER FLIP GERMAN M.D. Performed By: #### G LULS #### Point of Care testing , Glucose [Mass/Vol] 156 mg/dL Normal [facility] Comment on above: Result Comment: [place] om Glucose Reference Range is dependent on time and content of last meal. Glucose of more than 200 mg/dL in a nonstressed, ambulatory subject supports the diagnosis of Diabetes Mellitus. Performed By: #### G LULS #### Point of Care testing , Glucose [Mass/Vol] 257 mg/dL Normal [facility] Comment on above: Result Comment: [place] om Glucose Reference Range is dependent on time and content of last meal. Glucose of more than 200 mg/dL in a nonstressed, ambulatory subject supports the diagnosis of Diabetes Mellitus. PERFORMED BY: [address] [place] [address] PATHOLOGIST FRONT TENDER FLIP GERMAN M.D. Performed By: #### G LULS #### Point of Care testing , Glucose [Mass/Vol] 142 mg/dL Normal [facility] Comment on above: Result Comment: [place] om Glucose Reference Range is dependent on time and content of last meal. Glucose of more than 200 mg/dL in a nonstressed, ambulatory subject supports the diagnosis of Diabetes Mellitus. PERFORMED BY: [address] [place] [address] PATHOLOGIST FRONT TENDER FLIP GERMAN M.D. Performed By: #### G LULS #### Point of Care testing , Prothrombin Time INRon 11-09 INR Coag (PPP) [Relative time] 2.7 {INR} Normal [facility] Comment on above: Result Comment: INR [...] heart valves: 3 - 4.5 PERFORMED BY: [facility] [address] [place] [id number] PATHOLOGIST FRONT TENDER FLIP GERMAN M.D. Performed By: #### G LULS #### Point of Care testing , PT Coag (PPP) [Time] 30.5 s High 9.0-12.9 [facility] Comment on above: Performed By: #### G LULS #### Point of Care testing , Glucose Poct Glucometerson 0 11-08-2021 Glucose [Mass/Vol] 180 mg/dL Normal [facility] Comment on above: Result Comment: [facility] Glucose Reference Range is dependent on time and content of last meal. Glucose of more than 200 mg/dL in a nonstressed, ambulatory subject supports the diagnosis of Diabetes Mellitus. PERFORMED BY: [address] [place] [id number] PATHOLOGIST FRONT TENDER FLIP GERMAN M.D. Performed By: #### G LULS #### Point of Care testing , Glucose [Mass/Vol] 161 mg/dL Normal [facility] Comment on above: Result Comment: [facility] Glucose Reference Range is dependent on time and content of last meal. Glucose of more than 200 mg/dL in a nonstressed, ambulatory subject supports the diagnosis of Diabetes Mellitus. PERFORMED BY: [address] [place] [address] PATHOLOGIST FRONT TENDER FLIP GERMAN M.D. Performed By: #### G LULS #### Point of Care testing , Glucose [Mass/Vol] 193 mg/dL Normal [facility] Comment on above: Result Comment: [facility] Glucose Reference Range is dependent on time and content of last meal. Glucose of more than 200 mg/dL in a nonstressed, ambulatory subject supports the diagnosis of Diabetes Mellitus. PERFORMED BY: [address] [place] [id number] PATHOLOGIST FRONT TENDER FLIP GERMAN M.D. Performed By: #### G LULS #### Point of Care testing , Commemt1 Glu2: Cleaned Meter Normal [facility] Comment on above: Result Comment: PERF ORMED BY: [facility] [address] [place] [id number] PATHOLOGIST FRONT TENDER FLIP GERMAN M.D. Performed By: #### G LULS #### Point of Care testing , Glucose [Mass/Vol] 155 mg/dL Normal [facility] Comment on above: Result Comment: [place] [facility] Glucose Reference Range is dependent on time and content of last meal. Glucose of more than 200 mg/dL in a nonstressed, ambulatory subject supports the diagnosis of Diabetes Mellitus. Performed By: #### G LULS #### Point of Care testing , Prothrombin Time INRon 11-08 INR Coag (PPP) [Relative time] 2.9 {INR} Normal [facility] Comment on above: Result Comment: INR [...] heart valves: 3 - 4.5 PERFORMED BY: [address] [place] [address] PATHOLOGIST FRONT TENDER FLIP GERMAN M.D. Performed By: #### G LULS #### Point of Care testing , PT Coag (PPP) [Time] 33.0 s High 9.0-12.9 [facility] Comment on above: Performed By: #### G LULS #### Point of Care testing , Glucose Poct Glucometerson 0 11-07-2021 Commemt1 Glu2: Cleaned Meter [facility] Comment on above: Result Comment: PERF ORMED BY: [facility] [address] [place] [address] PATHOLOGIST FRONT TENDER FLIP GERMAN M.D. Performed By: #### G LULS #### Point of Care testing , Glucose [Mass/Vol] 183 mg/dL Normal [facility] Comment on above: Result Comment: [place] Glucose Reference Range is dependent on time and content of last meal. Glucose of more than 200 mg/dL in a nonstressed, ambulatory subject supports the diagnosis of Diabetes Mellitus. Performed By: #### G LULS #### Point of Care testing , Commemt1 Glu2: Cleaned Meter [facility] Comment on above: Result Comment: PERF ORMED BY: [facility] [address] [facility] [place] [address] PATHOLOGIST FRONT TENDER FLIP GERMAN M.D. Performed By: #### G LULS #### Point of Care testing , Glucose [Mass/Vol] 154 mg/dL Normal [facility] Comment on above: Result Comment: [place] [facility] Glucose Reference Range is dependent on time and content of last meal. Glucose of more than 200 mg/dL in a nonstressed, ambulatory subject supports the diagnosis of Diabetes Mellitus. Performed By: #### G LULS #### Point of Care testing , Commemt1 Glu2: Cleaned Meter [facility] Comment on above: Result Comment: PERF ORMED BY: [facility] [address] [facility] [place] [address] PATHOLOGIST FRONT TENDER FLIP GERMAN M.D. Performed By: #### G LULS #### Point of Care testing , Glucose [Mass/Vol] 339 mg/dL Normal [facility] Comment on above: Result Comment: [place] [facility] Glucose Reference Range is dependent on time and content of last meal. Glucose of more than 200 mg/dL in a nonstressed, ambulatory subject supports the diagnosis of Diabetes Mellitus. Performed By: #### G LULS #### Point of Care testing , Glucose [Mass/Vol] 146 mg/dL Normal [facility] Comment on above: Result Comment: [place] [facility] Glucose Reference Range is dependent on time and content of last meal. Glucose of more than 200 mg/dL in a nonstressed, ambulatory subject supports the diagnosis of Diabetes Mellitus. PERFORMED BY: [address] [place] [address] PATHOLOGIST FRONT TENDER FLIP GERMAN M.D. Performed By: #### G LULS #### Point of Care testing , Prothrombin Time INRon 11-07 INR Coag (PPP) [Relative time] 2.0 {INR} Normal [facility] Comment on above: Result Comment: INR [...] heart valves: 3 - 4.5 PERFORMED BY: [facility] [address] [place] [address] PATHOLOGIST FRONT TENDER FLIP GERMAN M.D. Performed By: #### G LULS #### Point of Care testing , PT Coag (PPP) [Time] 22.8 s High 9.0-12.9 [facility] Comment on above: Performed By: #### G LULS #### Point of Care testing , Basic Metabolic Panelon 10-13 Calcium [Mass/Vol] 9.1 mg/dL Normal 8.2-10.2 [facility] Comment on above: Performed By: #### G LULS #### Point of Care testing , Chloride [Moles/Vol] 98 mmol/L Normal 95-114 [facility] Comment on above: Performed By: #### G LULS #### Point of Care testing , CO2 [Moles/Vol] 33.3 mmol/L High 22.0-30.0 [facility] Comment on above: Performed By: #### G LULS #### Point of Care testing , Creatinine [Mass/Vol] 0.63 mg/dL Normal 0.44-1.03 [facility] Comment on above: Performed By: #### G LULS #### Point of Care testing , Creatinine Clr Calc Pharmacy 65.08 [facility] Comment on above: Result Comment: PERF ORMED BY: [facility] [address] [place] [address] PATHOLOGIST FRONT TENDER FLIP GERMAN M.D. Performed By: #### G LULS #### Point of Care testing , Estimated GFR ( Trista > 60 [facility] Comment on above: Result Comment: GFR estimated reference range: According to KDOQI guidelines, <60 ml/min/1.73m2 is sufficient to diagnose a patient with chronic kidney disease. Performed By: #### G LULS #### Point of Care testing , Estimated GFR (Non- Am > 60 Normal [facility] Comment on above: Performed By: #### G LULS #### Point of Care testing , Glucose [Mass/Vol] 159 mg/dL High 70-100 [facility] Comment on above: Result Comment: [place] Glucose Reference Range is dependent on time and content of last meal. Glucose of more than 200 mg/dL in a nonstressed, ambulatory subject supports the diagnosis of Diabetes Mellitus. ADA recommended reference range Performed By: #### G LULS #### Point of Care testing , Potassium [Moles/Vol] 3.3 mmol/L Low 3.5-5.1 [facility] Comment on above: Performed By: #### G LULS #### Point of Care testing , Sodium [Moles/Vol] 140 mmol/L Normal 136-146 [facility] Comment on above: Performed By: #### G LULS #### Point of Care testing , Urea nitrogen [Mass/Vol] 6 mg/dL Low 9-23 [facility] Comment on above: Performed By: #### G LULS #### Point of Care testing , Basophils Auto (Bld) [#/Vol] Ordered By: Faustina Barr on 11-06-2021 Basophils (Bld) [#/Vol] 0.0 10*3/uL 0.0-0.2 [facility] Basophils/100 WBC Auto (Bld) Ordered By: Faustina Barr on 11-06-2021 Basophils/100 WBC (Bld) 0.5 % . [facility] Blood hemoglobin measurement (mass/volume)Ordered By: Faustina Barr on 11-06-2021 Hemoglobin (Bld) [Mass/Vol] 11.8 g/dL 11.8-15.4 [facility] Blood leukocytes automated c ount (number/volume)Ordered By: Faustina Barr on 11-06-2021 WBC (Bld) [#/Vol] 5.6 10*3/uL 4.5-11.0 [facility] Complete Blood Count Auto Di ffon 11-06-2021 Basophils (Bld) [#/Vol] 0.0 10*3/uL Normal 0.0-0.2 [facility] Comment on above: Result Comment: PERF ORMED BY: [facility] [place] [address] PATHOLOGIST FRONT TENDER FLIP GERMAN M.D. Performed By: #### G LULS #### Point of Care testing , Basophils/100 WBC (Bld) 0.5 % Normal . [facility] Comment on above: Performed By: #### G LULS #### Point of Care testing , Eosinophils (Bld) [#/Vol] 0.2 10*3/uL Normal 0.0-0.45 [facility] Comment on above: Performed By: #### G LULS #### Point of Care testing , Eosinophils/100 WBC (Bld) 3.9 % Normal . [facility] Comment on above: Performed By: #### G LULS #### Point of Care testing , Erythrocyte distribution width (RBC) [Ratio] 16.6 % High 11.9-15.3 [facility] Comment on above: Performed By: #### G LULS #### Point of Care testing , Hematocrit (Bld) [Volume fraction] 37.0 % Normal 34.0-46.4 [facility] Comment on above: Performed By: #### G LULS #### Point of Care testing , Hemoglobin (Bld) [Mass/Vol] 11.8 g/dL Normal 11.8-15.4 [facility] Comment on above: Performed By: #### G LULS #### Point of Care testing , Lymphocytes (Bld) [#/Vol] 2.1 10*3/uL Normal 1.00-4.8 [facility] Comment on above: Performed By: #### G LULS #### Point of Care testing , Lymphocytes/100 WBC (Bld) 37.6 % Normal . [facility] Comment on above: Performed By: #### G LULS #### Point of Care testing , MCH (RBC) [Entitic mass] 28.8 pg Normal 24.7-34.3 [facility] Comment on above: Performed By: #### Charles SOSA #### Point of Care testing , MCV (RBC) [Entitic vol] 90.5 fL Normal 80-100 [facility] Comment on above: Performed By: #### Charles SOSA #### Point of Care testing , Mean Corpuscular HGB Conc 31.9 g/dL Low 32.0-35.0 [facility] Comment on above: Performed By: #### Charles BRIZUELALS #### Point of Care testing , Monocytes (Bld) [#/Vol] 0.7 10*3/uL Normal 0.0-0.8 [facility] Comment on above: Performed By: #### Charles SOSA #### Point of Care testing , Monocytes/100 WBC (Bld) 12.7 % Normal . [facility] Comment on above: Performed By: #### Charles BRIZUELALS #### Point of Care testing , Neutrophils (Bld) [#/Vol] 2.5 10*3/uL Normal 1.8-7.7 [facility] Comment on above: Performed By: #### Charles SOSA #### Point of Care testing , Neutrophils/100 WBC (Bld) 45.3 % Normal . [facility] Comment on above: Performed By: #### Charles SOSA #### Point of Care testing , Nucleated RBC/100 WBC (Bld) [Ratio] 0.1 % Normal 0-0.5 [facility] Comment on above: Performed By: #### Charles BRIZUELALS #### Point of Care testing , Platelet mean volume (Bld) [Entitic vol] 8.3 fL Normal 6.3-10.7 [facility] Comment on above: Performed By: #### Charles SOSA #### Point of Care testing , Platelets (Bld) [#/Vol] 298 10*3/uL Normal 150-450 [facility] Comment on above: Performed By: #### Charles SOSA #### Point of Care testing , RBC (Bld) [#/Vol] 4.09 10*6/uL Normal 3.60-5.00 [facility] Comment on above: Performed By: #### G LULS #### Point of Care testing , WBC (Bld) [#/Vol] 5.6 10*3/uL Normal 4.5-11.0 [facility] Comment on above: Performed By: #### G LULS #### Point of Care testing , Creatinine and Glomerular fi ltration rate.predicted panel (S/P/Bld)Ordered By: Faustina Barr on 11-06-2021 Creatinine [Mass/Vol] 0.63 mg/dL 0.44-1.03 [facility] Eosinophils Auto (Bld) [#/Vo l]Ordered By: Faustina Barr on 11-06-2021 Eosinophils (Bld) [#/Vol] 0.2 10*3/uL 0.0-0.45 [facility] Eosinophils/100 WBC Auto (Bl d)Ordered By: Faustina Barr on 11-06-2021 Eosinophils/100 WBC (Bld) 3.9 % . [facility] Erythrocyte distribution wid th Auto (RBC) [Ratio]Ordered By: Faustina Barr on 11-06-2021 Erythrocyte distribution width (RBC) [Ratio] 16.6 % 11.9-15.3 [facility] Estimated glomerular filtrat ion rate (GFR) non- AmericanOrdered By: Faustina Barr on 11-06-2021 GFR/1.73 sq M.predicted among non-blacks MDRD (S/P/Bld) [Vol rate/Area] > 60 mL/Min [facility] Glucose Poct Glucometerson 0 11-06-2021 Commemt1 Glu2: Cleaned Meter [facility] Comment on above: Result Comment: PERF ORMED BY: [facility] [address] [place] [address] PATHOLOGIST FRONT TENDER FLIP GERMAN M.D. Performed By: #### G LULS #### Point of Care testing , Glucose [Mass/Vol] 175 mg/dL Normal [facility] Comment on above: Result Comment: [place] Glucose Reference Range is dependent on time and content of last meal. Glucose of more than 200 mg/dL in a nonstressed, ambulatory subject supports the diagnosis of Diabetes Mellitus. Performed By: #### G LULS #### Point of Care testing , Commemt1 Glu2: Cleaned Meter [facility] Comment on above: Result Comment: PERF ORMED BY: [address] [place] [address] PATHOLOGIST FRONT TENDER FLIP GERMAN M.D. Performed By: #### G LULS #### Point of Care testing , Glucose [Mass/Vol] 141 mg/dL Normal [facility] Comment on above: Result Comment: [place] [facility] Glucose Reference Range is dependent on time and content of last meal. Glucose of more than 200 mg/dL in a nonstressed, ambulatory subject supports the diagnosis of Diabetes Mellitus. Performed By: #### G LULS #### Point of Care testing , Glucose [Mass/Vol] 171 mg/dL Normal [facility] Comment on above: Result Comment: [place] om Glucose Reference Range is dependent on time and content of last meal. Glucose of more than 200 mg/dL in a nonstressed, ambulatory subject supports the diagnosis of Diabetes Mellitus. PERFORMED BY: [address] [place] [address] PATHOLOGIST FRONT TENDER FLIP GERMAN M.D. Performed By: #### G LULS #### Point of Care testing , Glucose [Mass/Vol] 139 mg/dL Normal [facility] Comment on above: Result Comment: [place] Glucose Reference Range is dependent on time and content of last meal. Glucose of more than 200 mg/dL in a nonstressed, ambulatory subject supports the diagnosis of Diabetes Mellitus. PERFORMED BY: [address] [place] [address] PATHOLOGIST FRONT TENDER FLIP GERMAN M.D. Performed By: #### G LULS #### Point of Care testing , Hematocrit Auto (Bld) [Volum e fraction]Ordered By: Faustina Barr on 11-06-2021 Hematocrit (Bld) [Volume fraction] 37.0 % 34.0-46.4 [facility] Laboratory - Hematology and Cell countsOrdered By: Faustina Barr on 11-06-2021 Nucleated RBC/100 WBC (Bld) [Ratio] 0.1 % 0-0.5 [facility] Lymphocytes Auto (Bld) [#/Vo l]Ordered By: Faustina Barr on 11-06-2021 Lymphocytes (Bld) [#/Vol] 2.1 10*3/uL 1.00-4.8 [facility] Lymphocytes/100 WBC Auto (Bl d)Ordered By: Faustina Barr on 11-06-2021 Lymphocytes/100 WBC (Bld) 37.6 % . [facility] MCH Auto (RBC) [Entitic mass ]Ordered By: Faustina Barr on 11-06-2021 MCH (RBC) [Entitic mass] 28.8 pg 24.7-34.3 [facility] MCHC Auto (RBC) [Mass/Vol]Or dered By: Faustina Barr on 11-06-2021 MCHC (RBC) [Mass/Vol] 31.9 g/dL 32.0-35.0 [facility] MCV Auto (RBC) [Entitic vol] Ordered By: Faustina Barr on 11-06-2021 MCV (RBC) [Entitic vol] 90.5 fL 80-100 [facility] Monocytes Auto (Bld) [#/Vol] Ordered By: Faustina Barr on 11-06-2021 Monocytes (Bld) [#/Vol] 0.7 10*3/uL 0.0-0.8 [facility] Monocytes/100 WBC Auto (Bld) Ordered By: Faustina Barr on 11-06-2021 Monocytes/100 WBC (Bld) 12.7 % . [facility] Neutrophils Auto (Bld) [#/Vo l]Ordered By: Faustina Barr on 11-06-2021 Neutrophils (Bld) [#/Vol] 2.5 10*3/uL 1.8-7.7 [facility] Neutrophils/100 WBC Auto (Bl d)Ordered By: Faustina Barr on 11-06-2021 Neutrophils/100 WBC (Bld) 45.3 % . [facility] No Panel InformationOrdered By: Faustina Barr on 11-06-2021 Estimated GFR () > 60 mL/Min [facility] Comment on above: GFR estimated refere nce range: According to KDOQI guidelines, <60 ml/min/1.73m2 is sufficient to diagnose a patient with chronic kidney disease. Pharmacy Creatinine Clearance (Chem 65.08 [facility] Platelet mean volume Auto (B ld) [Entitic vol]Ordered By: Faustina Barr on 11-06-2021 Platelet mean volume (Bld) [Entitic vol] 8.3 fL 6.3-10.7 [facility] Platelets Auto (Bld) [#/Vol] Ordered By: Faustina Barr on 11-06-2021 Platelets (Bld) [#/Vol] 298 10*3/uL 150-450 [facility] Prothrombin Time INRon 11-06 INR Coag (PPP) [Relative time] 1.3 {INR} Normal [facility] Comment on above: Result Comment: INR [...] heart valves: 3 - 4.5 PERFORMED BY: [address] [place] [address] PATHOLOGIST FRONT TENDER FLIP GERMAN M.D. Performed By: #### G LULS #### Point of Care testing , PT Coag (PPP) [Time] 14.4 s High 9.0-12.9 [facility] Comment on above: Performed By: #### G LULS #### Point of Care testing , RBC Auto (Bld) [#/Vol]Ordere d By: Faustina Barr on 11-06-2021 RBC (Bld) [#/Vol] 4.09 10*6/uL 3.60-5.00 [facility] Serum or plasma calcium alondra urement (mass/volume)Ordered By: Faustina Barr on 11-06-2021 Calcium [Mass/Vol] 9.1 mg/dL 8.2-10.2 [facility] Serum or plasma chloride link surement (moles/volume)Ordered By: Faustina Barr on 11-06-2021 Chloride [Moles/Vol] 98 mmol/L 95-114 [facility] Serum or plasma glucose alondra urement (mass/volume)Ordered By: Faustina Barr on 11-06-2021 Glucose [Mass/Vol] 159 mg/dL 70-100 [facility] Comment on above: ADA recommended refe rence [...] on 11-06-2021 Potassium [Moles/Vol] 3.3 mmol/L 3.5-5.1 [facility] Serum or plasma sodium measu rement (moles/volume)Ordered By: Faustina Barr on 11-06-2021 Sodium [Moles/Vol] 140 mmol/L 136-146 [facility] Serum or plasma total carbon dioxide measurement (moles/volume)Ordered By: Faustina Barr on 11-06-2021 CO2 [Moles/Vol] 33.3 mmol/L 22.0-30.0 [facility] Serum or plasma urea nitroge n measurement (mass/volume)Ordered By: Faustina Barr on 11-06-2021 Urea nitrogen [Mass/Vol] 6 mg/dL 9-23 [facility] Urine culture routineOrdered By: Marvin Peter on 11-06-2021 Bacteria identified Cx Nom (U) Escherichia coli [facility] Glucose Poct Glucometerson 0 11-05-2021 Commemt1 Glu2: Cleaned Meter Normal [facility] Comment on above: Result Comment: PERF ORMED BY: [place] [id number] PATHOLOGIST FRONT TENDER FLIP GERMAN M.D. Performed By: #### G LULS #### Point of Care testing , Glucose [Mass/Vol] 202 mg/dL Normal [facility] Comment on above: Result Comment: [place] Glucose Reference Range is dependent on time and content of last meal. Glucose of more than 200 mg/dL in a nonstressed, ambulatory subject supports the diagnosis of Diabetes Mellitus. Performed By: #### G LULS #### Point of Care testing , MR lumbar spine wo conon MR lumbar spine wo con [facility] Main [place] [id number] MRI Report Signed Patient: Alton Barker MR#: [id number] 987 : 1940 Acct:[id number] Age/Sex: 81 / F ADM Date: 11/04/21 Loc: Room: [address] [place] [address] Type: ADM INOo Attending Dr: Enrrique Mota [...] Vijay Holden M.D.11/05/2021 12:14 PM Dictation Location: [place] [address] Transcribed By: [facility] 11/05/21 1214 Dictated By: Vijay Holden II, MD 11/05/21 1209 Signed By: 11/05/21 1214 [facility] Prothrombin Time INRon 11-05 INR Coag (PPP) [Relative time] 1.8 {INR} [facility] Comment on above: Result Comment: [...] heart valves: 3 - 4.5 PERFORMED BY: [facility] [place] [address] PATHOLOGIST FRONT TENDER FLIP GERMAN M.D. Performed By: #### G LUCOLLIN #### Point of Care testing , PT Coag (PPP) [Time] 20.0 s High 9.0-12.9 [facility] Comment on above: Performed By: #### G LULS #### Point of Care testing , Albumin [Mass/volume] in Ser um or PlasmaOrdered By: Marvin Peter on 11-04-2021 Albumin [Mass/Vol] 3.4 g/dL 3.2-5.5 [facility] Automated erythrocytes count in urine sediment (number/area)Ordered By: Marvin Peter on 11-04-2021 RBC Auto (Urine sed) [#/Area] Innumerable [HPF] 0-4 [facility] Automated leukocytes count i n urine sediment (number/area)Ordered By: Marvin Peter on 11-04-2021 WBC Auto (Urine sed) [#/Area] 50-100 [HPF] 0-4 [facility] Automated urine hyaline cast s count (number/volume)Ordered By: Marvin Peter on 11-04-2021 Hyaline casts Auto (U) [#/Vol] Rare [LPF] 0-1 [facility] Bilirubin Test strip Ql (U)O rdered By: Mravin Peter on 11-04-2021 Bilirubin Ql (U) Negative Negative [facility] COVID CepheidOrdered By: Artie Peter on 11-04-2021 SARS-CoV-2 (COVID-19) Ab IA Ql Negative Negative [facility] Comment on above: This is a duplicate Cepheid Xpert Xpress CoV-2/Flu/RSV Plus RNA by RT-PCR result to be used for statistical tracking purpose only. SARS-CoV-2 (COVID-19) RNA PIPE+probe Ql (Unsp spec) [facility] COVID-19 / Flu A/B / RSV [...] or Cepheid Disclaimer revoked sooner. PERFORMED BY: [facility] [place] [address] PATHOLOGIST FRONT TENDER FLIP GERMAN M.D. [facility] Comment on above: Performed By: [...] developed and its performance characteristic determined by [employer] and validated at [facility]. This test has not been FDA [...] for SARS Antigen by [facility] PERFORMED BY: [facility] [address] [place] [address] PATHOLOGIST FRONT TENDER FLIP GERMAN M.D. Normal [facility] Comment on above: Performed By: #### G LULS #### Point of Care testing , COVID-19 SOFIAOrdered By: Sina Peter on 11-04-2021 SARS-CoV+SARS-CoV-2 (COVID-19) Ag IA.rapid Ql (Resp) Negative Negative [facility] Comment on above: This is a duplicate Evita SARS Antigen ([facility]) result to be used for statistical tracking purpose only. CT cervical spine wo conon 0 11-04-2021 CT cervical spine wo con [facility] [place] [address] CT Scan Report Signed Patient: Alton Barker MR#: [id number] 987 : 1940 Acct:[id number] Age/Sex: 81 / F ADM Date: 11/04/21 Loc: ER Room: Type: [facility] ER Attending Dr: Copies to: Marvin Peter [...] Baltazar Saucedo M.D.11/04/2021 5:55 PM Dictation Location: [place] [address] Transcribed By: [facility] 11/04/211754 Dictated By: Baltazar Saucedo DO 11/04/211752 Signed By: 11/04/211754 [facility] CT head/brain wo conon 11-04 CT head/brain wo con [facility] Main [address] [address] [address] Scan Report Signed Patient: Alton Barker MR#: [id number] 987 : 1940 Acct:[id number] Age/Sex: 81 / F ADM Date: 11/04/21 Loc: ER Room: Type: [facility] ER Attending Dr: Copies to: Marvin Peter [...] Baltazar Saucedo M.D.11/04/2021 5:52 PM Dictation Location: [place] [address] Transcribed By: [facility] 11/04/211751 Dictated By: Baltazar Saucedo DO 11/04/211747 Signed By: 11/04/211751 [facility] CT lumbar spine wo [facility] CT lumbar spine wo [facility] Main [place] [address] [place] [address] CT Scan Report Signed Patient: Alton Barker MR#: [id number] 987 : 1940 Acct:[id number] Age/Sex: 81 / F ADM Date: 11/04/21 Loc: ER Room: Type: [facility] ER Attending Dr: Copies to: Marvin Peter [...] Baltazar Saucedo M.D.11/04/2021 6:06 PM Dictation Location: [place] [address] Transcribed By: [facility] 11/04/211805 Dictated By: Baltazar Saucedo DO 11/04/211800 Signed By: 11/04/211805 [facility] CT thoracic spine wo conon 0 11-04-2021 CT thoracic spine wo con [facility] [place] [address] CT Scan Report Signed Patient: Alton Barker MR#: [id number] 987 : 1940 Acct:[id number] Age/Sex: 81 / F ADM Date: 11/04/21 Loc: ER Room: Type: [facility] ER Attending Dr: Copies to: Marvin Peter [...] Baltazar Saucedo M.D.11/04/2021 6:00 PM Dictation Location: [place] [address] Transcribed By: [facility] 11/04/21 1800 Dictated By: Baltazar Saucedo DO 11/04/21 1758 Signed By: 11/04/21 1800 Normal [facility] Casts typing in urine sedime nt by light microscopyOrdered By: Marvin Peter on 11-04-2021 Casts LM Nom (Urine sed) None seen [LPF] None Seen [facility] Cepheid COVID PCR Negativeon 11-04-2021 SARS-CoV-2 (COVID-19) RNA PIPE+probe Ql (Unsp spec) Negative Normal Negative [facility] Comment on above: Result Comment: This is a duplicate Cepheid Xpert Xpress CoV-2/Flu/RSV Plus RNA by RT-PCR result to be used for statistical tracking purpose only. PERFORMED BY: [facility] [address] [facility] [place] [address] PATHOLOGIST FRONT TENDER FLIP GERMAN M.D. Performed By: #### G LULS #### Point of Care testing , Color Auto (U)Ordered By: Sina Peter on 11-04-2021 Color (U) Yellow Yellow [facility] Complete Blood Count Auto Di ffon 11-04-2021 Basophils (Bld) [#/Vol] 0.0 10*3/uL Normal 0.0-0.2 [facility] Comment on above: Result Comment: PERF ORMED BY: [facility] [address] [place] [address] PATHOLOGIST FRONT TENDER FLIP GERMAN M.D. Performed By: #### C MP, CBC ####[facility] [address] Basophils/100 WBC (Bld) 0.6 % Normal . [facility] Comment on above: Performed By: #### C MP, CBC ####[address] Eosinophils (Bld) [#/Vol] 0.1 10*3/uL Normal 0.0-0.45 [facility] Comment on above: Performed By: #### C MP, CBC ####[address] Eosinophils/100 WBC (Bld) 1.7 % Normal . [facility] Comment on above: Performed By: #### C MP, CBC ####[address] Erythrocyte distribution width (RBC) [Ratio] 16.3 % High 11.9-15.3 [facility] Comment on above: Performed By: #### C MP, CBC ####[address] Hematocrit (Bld) [Volume fraction] 39.2 % Normal 34.0-46.4 [facility] Comment on above: Performed By: #### C MP, CBC ####[address] Hemoglobin (Bld) [Mass/Vol] 12.8 g/dL Normal 11.8-15.4 [facility] Comment on above: Performed By: #### C MP, CBC ####[address] Lymphocytes (Bld) [#/Vol] 1.6 10*3/uL Normal 1.00-4.8 [facility] Comment on above: Performed By: #### C MP, CBC ####[address] Lymphocytes/100 WBC (Bld) 20.3 % Normal . [facility] Comment on above: Performed By: #### C MP, CBC ####[address] MCH (RBC) [Entitic mass] 29.2 pg Normal 24.7-34.3 [facility] Comment on above: Performed By: #### C MP, CBC ####[address] MCV (RBC) [Entitic vol] 89.5 fL Normal 80-100 [facility] Comment on above: Performed By: #### C MP, CBC ####[address] Mean Corpuscular HGB Conc 32.6 g/dL Normal 32.0-35.0 [facility] Comment on above: Performed By: #### C MP, CBC ####[address] Monocytes (Bld) [#/Vol] 0.8 10*3/uL Normal 0.0-0.8 [facility] Comment on above: Performed By: #### C MP, CBC ####[address] Monocytes/100 WBC (Bld) 9.7 % Normal . [facility] Comment on above: Performed By: #### C MP, CBC ####[address] Neutrophils (Bld) [#/Vol] 5.3 10*3/uL Normal 1.8-7.7 [facility] Comment on above: Performed By: #### C MP, CBC ####[address] Neutrophils/100 WBC (Bld) 67.7 % Normal . [facility] Comment on above: Performed By: #### C MP, CBC ####[address] Nucleated RBC/100 WBC (Bld) [Ratio] 0.1 % Normal 0-0.5 [facility] Comment on above: Performed By: #### C MP, CBC ####[address] Platelet mean volume (Bld) [Entitic vol] 7.9 fL Normal 6.3-10.7 [facility] Comment on above: Performed By: #### C MP, CBC ####[address] [address] [facility] Platelets (Bld) [#/Vol] 318 10*3/uL Normal 150-450 [facility] Comment on above: Performed By: #### C MP, CBC ####[place] [id number] [facility] RBC (Bld) [#/Vol] 4.38 10*6/uL Normal 3.60-5.00 [facility] Comment on above: Performed By: #### C MP, CBC ####[place] [id number] [facility] WBC (Bld) [#/Vol] 7.9 10*3/uL Normal 4.5-11.0 [facility] Comment on above: Performed By: #### C MP, CBC ####[place] [id number] [facility] Comprehensive Metabolic Pane loco 11-04-2021 Albumin [Mass/Vol] 3.4 g/dL Normal 3.2-5.5 [facility] Comment on above: Performed By: #### C MP, CBC ####[place] [id number] [facility] Albumin/Globulin [Mass ratio] 0.9 {ratio} Normal [facility] Comment on above: Performed By: #### C MP, CBC ####[place] [id number] [facility] ALP [Catalytic activity/Vol] 80 U/L Normal 32-92 [facility] Comment on above: Performed By: #### C MP, CBC ####[address] [address] [facility] ALT [Catalytic activity/Vol] 7 U/L Low 10-60 [facility] Comment on above: Performed By: #### C MP, CBC ####[address] [place] [address] [facility] AST [Catalytic activity/Vol] 16 U/L Normal 10-42 [facility] Comment on above: Performed By: #### C MP, CBC ####[place] [id number] [facility] Bilirubin [Mass/Vol] 1.2 mg/dL Normal 0.3-1.2 [facility] Comment on above: Performed By: #### C MP, CBC ####[address] Calcium [Mass/Vol] 9.7 mg/dL Normal 8.2-10.2 [facility] Comment on above: Performed By: #### C MP, CBC ####[address] Chloride [Moles/Vol] 95 mmol/L Normal 95-114 [facility] Comment on above: Performed By: #### C MP, CBC ####[address] CO2 [Moles/Vol] 30.4 mmol/L High 22.0-30.0 [facility] Comment on above: Performed By: #### C MP, CBC ####[place] [id number] [facility] Creatinine [Mass/Vol] 0.61 mg/dL Normal 0.44-1.03 [facility] Comment on above: Performed By: #### C MP, CBC ####[place] [id number] [facility] Creatinine Clr Calc Pharmacy 64.44 [facility] Comment on above: Result Comment: PERF ORMED BY: [facility] [address] [place] [address] PATHOLOGIST FRONT TENDER FLIP GERMAN M.D. Performed By: #### C MP, CBC ####[place] [id number] [facility] Estimated GFR ( Trista > 60 Normal [facility] Comment on above: Result Comment: GFR estimated reference range: According to KDOQI guidelines, <60 ml/min/1.73m2 is sufficient to diagnose a patient with chronic kidney disease. Performed By: #### C MP, CBC ####[address] [address] [facility] Estimated GFR (Non- Am > 60 [facility] Comment on above: Performed By: #### C MP, CBC ####[address] [address] [facility] Globulin (S) [Mass/Vol] 3.7 g/dL [facility] Comment on above: Performed By: #### C MP, CBC ####[address] [address] [facility] Glucose [Mass/Vol] 131 mg/dL High 70-100 [facility] Comment on above: Result Comment: [place] Glucose Reference Range is dependent on time and content of last meal. Glucose of more than 200 mg/dL in a nonstressed, ambulatory subject supports the diagnosis of Diabetes Mellitus. ADA recommended reference range Performed By: #### C MP, CBC ####[address] [address] [facility] Potassium [Moles/Vol] 3.8 mmol/L Normal 3.5-5.1 [facility] Comment on above: Performed By: #### C MP, CBC ####[address] [address] [facility] Protein [Mass/Vol] 7.1 g/dL Normal 6.1-7.9 [facility] Comment on above: Performed By: #### C MP, CBC ####[address] [address] [facility] Sodium [Moles/Vol] 137 mmol/L Normal 136-146 [facility] Comment on above: Performed By: #### C MP, CBC ####[address] [address] [facility] Urea nitrogen [Mass/Vol] 14 mg/dL Normal 9-23 [facility] Comment on above: Performed By: #### C MP, CBC ####[place] [address] [place] [address] [place] Dipstick and Microscopicon 0 11-04-2021 Appearance (U) Cloudy Critically abnormal Clear [facility] Comment on above: Order Comment: Name Collection Type:: Voided Performed By: #### G LULS #### Point of Care testing , Bacteria,Urine 4+ High None Seen [facility] Comment on above: Order Comment: Name Collection Type:: Voided Performed By: #### G LULS #### Point of Care testing , Bilirubin,Urine Negative Normal Negative [facility] Comment on above: Order Comment: Name Collection Type:: Voided Performed By: #### G LULS #### Point of Care testing , Color (U) Yellow Normal Yellow [facility] Comment on above: Order Comment: Name Collection Type:: Voided Performed By: #### G LULS #### Point of Care testing , Glucose Ql (U) Normal Normal Normal [facility] Comment on above: Order Comment: Name Collection Type:: Voided Performed By: #### G LULS #### Point of Care testing , Hyaline Casts,Urine Rare Normal 0-1 [facility] Comment on above: Order Comment: Name Collection Type:: Voided Performed By: #### G LULS #### Point of Care testing , Ketones Ql (U) 1+ High Negative [facility] Comment on above: Order Comment: Name Collection Type:: Voided Performed By: #### G LULS #### Point of Care testing , Leukocyte esterase Test strip Ql (U) 3+ High Negative [facility] Comment on above: Order Comment: Name Collection Type:: Voided Performed By: #### G LULS #### Point of Care testing , Nitrite,Urine Positive High Negative [facility] Comment on above: Order Comment: Name Collection Type:: Voided Performed By: #### G LULS #### Point of Care testing , Occult Blood,Urine 3+ High Negative [facility] Comment on above: Order Comment: Name Collection Type:: Voided Result Comment: PERF ORMED BY: [facility] [address] [place] [address] PATHOLOGIST FRONT TENDER FLIP GERMAN M.D. Performed By: #### G LULS #### Point of Care testing , Other Casts,Urine None Seen Normal None Seen [facility] Comment on above: Order Comment: Name Collection Type:: Voided Result Comment: PERF ORMED BY: [facility] [place] [address] PATHOLOGIST FRONT TENDER FLIP GERMAN M.D. Performed By: #### G LULS #### Point of Care testing , pH (U) 5.5 [pH] Normal 5.0-9.0 [facility] Comment on above: Order Comment: Name Collection Type:: Voided Performed By: #### G LULS #### Point of Care testing , Protein (U) [Mass/Vol] 30 mg/dL High Negative [facility] Comment on above: Order Comment: Name Collection Type:: Voided Performed By: #### G LULS #### Point of Care testing , RBC,Urine Innumerable High 04 [facility] Comment on above: Order Comment: Name Collection Type:: Voided Performed By: #### G LULS #### Point of Care testing , Specificy [place],Urine 1.029 Normal 1.001-1.03 0 [facility] Comment on above: Order Comment: Name Collection Type:: Voided Performed By: #### G LULS #### Point of Care testing , Squamous Epithelial Cell,Urine 5-9 High 0-2 [facility] Comment on above: Order Comment: Name Collection Type:: Voided Performed By: #### G LULS #### Point of Care testing , Urobilinogen,Urine Normal Normal Normal [facility] Comment on above: Order Comment: Name Collection Type:: Voided Performed By: #### G LULS #### Point of Care testing , WBC,Urine 50-100 High 0-4 [facility] Comment on above: Order Comment: Name Collection Type:: Voided Performed By: #### G LULS #### Point of Care testing , Globulin Calc (S) [Mass/Vol] Ordered By: Marvin Peter on 11-04-2021 Globulin (S) [Mass/Vol] 3.7 g/dL [facility] Ketones Auto test strip (U) [Mass/Vol]Ordered By: Marvin Peter on 11-04-2021 Ketones (U) [Mass/Vol] 1+ Negative [facility] Nitrite Test strip Ql (U)Ord ered By: Marvin Peter on 11-04-2021 Nitrite Ql (U) Positive Negative [facility] No Panel InformationOrdered By: Enrrique Mota on 11-04-2021 25-Hydroxy Vitamin D Total 71.4 ng/mL 30-100 [facility] Comment on above: VITAMIN D STATUS [...] 11-04-2021 Protein (U) [Mass/Vol] 30 mg/dL Negative [facility] Protein [Mass/volume] in Ser um or PlasmaOrdered By: Marvin Peter on 11-04-2021 Protein [Mass/Vol] 7.1 g/dL 6.1-7.9 [facility] Prothrombin Time INRon 11-04 INR Coag (PPP) [Relative time] 8.2 {INR} Off scale high [facility] Comment on above: Result Comment: Crit [...] heart valves: 3 - 4.5 PERFORMED BY: [address] [place] [address] PATHOLOGIST FRONT TENDER FLIP GERMAN M.D. Performed By: #### G LULS #### Point of Care testing , PT Coag (PPP) [Time] 96.2 s High 9.0-12.9 [facility] Comment on above: Performed By: #### G LULS #### Point of Care testing , Serum or plasma alanine engel otransferase measurement without P-5'-P (enzymatic activiOrdered By: Marvin Peter on 11-04-2021 ALT No additional P-5'-P [Catalytic activity/Vol] 7 U/L 10-60 [facility] Serum or plasma albumin/glob ulin mass ratioOrdered By: Marvin Peter on 11-04-2021 Albumin/Globulin [Mass ratio] 0.9 {ratio} [facility] Serum or plasma alkaline bouchra sphatase measurement (enzymatic activity/volume)Ordered By: Marvin Peter on 11-04-2021 ALP [Catalytic activity/Vol] 80 U/L 32-92 [facility] Serum or plasma aspartate am inotransferase measurement (enzymatic activity/volume)Ordered By: Marvin Peter on 11-04-2021 AST [Catalytic activity/Vol] 16 U/L 10-42 [facility] Serum or plasma total biliru bin measurement (mass/volume)Ordered By: Marvin Peter on 11-04-2021 Bilirubin [Mass/Vol] 1.2 mg/dL 0.3-1.2 [facility] Evita Ag Negativeon 11-05-19 22 Evita Ag Negative Negative Normal Negative [facility] Comment on above: Result Comment: This is a duplicate Evita SARS Antigen ([place]AMONT) result to be used for statistical tracking purpose only. PERFORMED BY: [facility] [address] [place] [address] PATHOLOGIST FRONT TENDER FLIP GERMAN M.D. Performed By: #### G IAN #### Point of Care testing , Specific gravity Auto test s trip (U) [Rel density]Ordered By: Marvin Peter on 11-04-2021 Specific gravity (U) [Rel density] 1.029 1.001-1.03 0 [facility] Squamous epithelial cells de tection in urine sediment by light microscopyOrdered By: Marvin Peter on 11-04-2021 Epithelial cells.squamous LM Ql (Urine sed) 5-9 [HPF] 0-2 [facility] TSH DL <= 0.005 mIU/L QnOrde red By: Enrrique Mota on 11-04-2021 TSH Qn 2.09 m[IU]/L 0.45-5.33 [facility] Thyroid Stimulating Hormoneo n 11-04-2021 TSH Qn 2.09 m[IU]/L Normal 0.45-5.33 [facility] Comment on above: Order Comment: Bobby nt addon Result Comment: PERF ORMED BY: [facility] [address] [place] [address] PATHOLOGIST FRONT TENDER FLIP GERMAN M.D. Performed By: #### G IAN #### Point of Care testing , Urine Cultureon 11-04-2021 Bacteria identified Cx Nom (U) ORGANISM: Escherichia coli (O:ESCCOL) [place] Count >100,000 Aerobic JIMMY Charge (NUC86) SUSCEPTIBILITY [...] RESISTANT TO ALL B-LACTAM DRUGS. PERFORMED BY: [place] [address] [place] [address] PATHOLOGIST FRONT TENDER FLIP GERMAN M.D. [facility] Comment on above: Performed By: #### G LULS #### Point of Care testing , Urine bacteria detection by automated methodOrdered By: Marvin Peter on 11-04-2021 Bacteria Auto Ql (U) 4+ None Seen [facility] Urine clarity by refractomet ry automatedOrdered By: Marvin Peter on 11-04-2021 Clarity Refractometry automated (U) Cloudy Clear [facility] Urine glucose measurement by automated test strip (mass/volume)Ordered By: Marvin Peter on 11-04-2021 Glucose Auto test strip (U) [Mass/Vol] Normal mg/dL Normal [facility] Urine hemoglobin detection b y automated test stripOrdered By: Marvin ePter on 11-04-2021 Hemoglobin Auto test strip Ql (U) 3+ Negative [facility] Urine leukocyte esterase det ection by automated test stripOrdered By: Marvin Peter on 11-04-2021 Leukocyte esterase Auto test strip Ql (U) 3+ Negative [facility] Urobilinogen Auto test strip (U) [Mass/Vol]Ordered By: Marvin Peter on 11-04-2021 Urobilinogen (U) [Mass/Vol] Normal mg/dL Normal [facility] Vitamin D 25 Hydroxy Totalon 11-04-2021 Vitamin D 25 Hydroxy Total 71.4 ng/mL Normal 30-100 [facility] Comment on above: Order Comment: Comme nt addon Result Comment: FREDERIC MIN D STATUS 25(OH)VITAMIN D RANGE (ng/mL) Deficient <20 Insufficient 20 to <30 Sufficient 30 to 100 Reference: Earl MF,Ken NC, Yoandy PEDERSEN, et al. Evaluation,treatment, and prevention of vitamin D deficiency; an Endocrine Society clinical practice guideline. JCEM. 2010; 96(7):1911-30. PERFORMED BY: [place] [address] PATHOLOGIST FRONT TENDER FLIP GERMAN M.D. Performed By: #### V [id number] ####[facility] [id number] [place] [id number] [facility] pH Auto test strip (U)Ordere d By: Marvin Peter on 11-04-2021 pH (U) 5.5 [pH] 5.0-9.0 [facility] Prothrombin Time INRon 10-22 INR Coag (PPP) [Relative time] 4.5 {INR} [facility] Other Prothrombin Time INR [facility] Other CT head/brain wo conon 10-20 CT head/brain wo con [facility] Main [place] [address] [place] [address] CT Scan Report Signed Patient: Alton Barker MR#: [id number] 987 : 1940 Acct:[id number] Age/Sex: 81 / F ADM Date: 10/19/21 Loc: ER Room: Type: [facility] ER Attending Dr: Copies to: Holger [...] Vijay Holden M.D.10/20/2021 8:09 AM Dictation Location: [place] [address] Transcribed By: [facility] 10/20/21 08 Dictated By: Vijay Holden II, MD 10/20/21805 Signed By: 10/20/21 08 Normal [facility] XR lumbar spine 2-3V*on XR lumbar spine 2-3V* [facility] Main [place] [address] [place] [address] XRay Report Signed Patient: Alton Barker MR#: [id number] 987 : 1940 Acct:[id number] Age/Sex: 81 / F ADM Date: 10/19/21 Loc: ER Room: Type: [facility] ER Attending Dr: Copies to: Holger [...] Vijay Holden M.D.10/20/2021 8:11 AM Dictation Location: [place] [address] Transcribed By: [facility] 10/20/21810 Dictated By: Vijay Holden II, MD 10/20/21808 Signed By: 10/20/21810 Normal [facility] Urine culture routineOrdered By: Sumanth Lowe on 09-30-2021 Bacteria identified Cx Nom (U) Escherichia coli [facility] Prothrombin Time INRon 09-29 INR Coag (PPP) [Relative time] 3.3 {INR} [facility] Other Prothrombin Time INR [facility] Other Automated erythrocytes count in urine sediment (number/area)Ordered By: Sumanth Lowe on 09-28-2021 RBC Auto (Urine sed) [#/Area] 10-19 [HPF] 0-4 [facility] Automated leukocytes count i n urine sediment (number/area)Ordered By: Sumanth Lowe on 09-28-2021 WBC Auto (Urine sed) [#/Area] 20-49 [HPF] 0-4 [facility] Basophils Auto (Bld) [#/Vol] Ordered By: Sumanth Lowe on 09-28-2021 Basophils (Bld) [#/Vol] 0.0 10*3/uL 0.0-0.2 [facility] Basophils/100 WBC Auto (Bld) Ordered By: Sumanth Lowe on 09-28-2021 Basophils/100 WBC (Bld) 0.4 % . [facility] Bilirubin Test strip Ql (U)O rdered By: Sumanth Lowe on 09-28-2021 Bilirubin Ql (U) Negative Negative [facility] Blood hemoglobin measurement (mass/volume)Ordered By: Sumanth Lowe on 09-28-2021 Hemoglobin (Bld) [Mass/Vol] 12.3 g/dL 11.8-15.4 [facility] Blood leukocytes automated c ount (number/volume)Ordered By: Sumanth Lowe on 09-28-2021 WBC (Bld) [#/Vol] 5.1 10*3/uL 4.5-11.0 [facility] Body fluid albumin measureme nt (mass/volume)Ordered By: Sumanth Lowe on 09-28-2021 Albumin (Body fld) [Mass/Vol] 3.3 g/dL 3.2-5.5 [facility] Color Auto (U)Ordered By: Giuseppe Lowe on 09-28-2021 Color (U) Yellow Yellow [facility] Complete Blood Count Auto Di ffon 09-28-2021 Basophils (Bld) [#/Vol] 0.0 10*3/uL Normal 0.0-0.2 [facility] Comment on above: Result Comment: PERF ORMED BY: [facility] [address] [place] [address] PATHOLOGIST FRONT TENDER FLIP GERMAN M.D. Performed By: #### C CHEN, CMP ####[address] Basophils/100 WBC (Bld) 0.4 % Normal . [facility] Comment on above: Performed By: #### C CHEN, CMP ####[address] Eosinophils (Bld) [#/Vol] 0.0 10*3/uL Normal 0.0-0.45 [facility] Comment on above: Performed By: #### C CHEN, CMP ####[address] Eosinophils/100 WBC (Bld) 0.4 % Normal . [facility] Comment on above: Performed By: #### C BC, CMP ####[address] Erythrocyte distribution width (RBC) [Ratio] 15.9 % High 11.9-15.3 [facility] Comment on above: Performed By: #### C BC, CMP ####[address] Hematocrit (Bld) [Volume fraction] 37.5 % Normal 34.0-46.4 [facility] Comment on above: Performed By: #### C BC, CMP ####[address] Hemoglobin (Bld) [Mass/Vol] 12.3 g/dL Normal 11.8-15.4 [facility] Comment on above: Performed By: #### C BC, CMP ####[address] Lymphocytes (Bld) [#/Vol] 0.8 10*3/uL Low 1.00-4.8 [facility] Comment on above: Performed By: #### C BC, CMP ####[address] Lymphocytes/100 WBC (Bld) 16.2 % Normal . [facility] Comment on above: Performed By: #### C BC, CMP ####[address] MCH (RBC) [Entitic mass] 29.5 pg Normal 24.7-34.3 [facility] Comment on above: Performed By: #### C BC, CMP ####[address] MCV (RBC) [Entitic vol] 90.3 fL Normal 80-100 [facility] Comment on above: Performed By: #### C BC, CMP ####[address] Mean Corpuscular HGB Conc 32.7 g/dL Normal 32.0-35.0 [facility] Comment on above: Performed By: #### C BC, CMP ####[address] Monocytes (Bld) [#/Vol] 0.7 10*3/uL Normal 0.0-0.8 [facility] Comment on above: Performed By: #### C CHEN, CMP ####[address] [address] [facility] Monocytes/100 WBC (Bld) 13.9 % Normal . [facility] Comment on above: Performed By: #### C BC, CMP ####[place] [id number] [facility] Neutrophils (Bld) [#/Vol] 3.5 10*3/uL Normal 1.8-7.7 [facility] Comment on above: Performed By: #### C CHEN, CMP ####[place] [id number] [facility] Neutrophils/100 WBC (Bld) 69.1 % Normal . [facility] Comment on above: Performed By: #### C CHEN, CMP ####[place] [id number] [facility] Nucleated RBC/100 WBC (Bld) [Ratio] 0.0 % Normal 0-0.5 [facility] Comment on above: Performed By: #### C CHEN, CMP ####[place] [id number] [facility] Platelet mean volume (Bld) [Entitic vol] 8.6 fL Normal 6.3-10.7 [facility] Comment on above: Performed By: #### C CHEN, CMP ####[address] [address] [facility] Platelets (Bld) [#/Vol] 154 10*3/uL Normal 150-450 [facility] Comment on above: Performed By: #### C CHEN, CMP ####[address] [address] [facility] RBC (Bld) [#/Vol] 4.16 10*6/uL Normal 3.60-5.00 [facility] Comment on above: Performed By: #### C BC, CMP ####[place] [id number] [place] WBC (Bld) [#/Vol] 5.1 10*3/uL Normal 4.5-11.0 [facility] Comment on above: Performed By: #### C BC, CMP ####[address] [address] [facility] Comprehensive Metabolic Pane loco 09-28-2021 Albumin [Mass/Vol] 3.3 g/dL Normal 3.2-5.5 [facility] Comment on above: Performed By: #### C BC, CMP ####[place] [id number] [facility] Albumin/Globulin [Mass ratio] 0.9 {ratio} Normal [facility] Comment on above: Performed By: #### C BC, CMP ####[place] [id number] [facility] ALP [Catalytic activity/Vol] 51 U/L Normal 32-92 [facility] Comment on above: Performed By: #### C BC, CMP ####[place] [id number] [facility] ALT [Catalytic activity/Vol] 7 U/L Low 10-60 [facility] Comment on above: Performed By: #### C BC, CMP ####[place] [id number] [facility] AST [Catalytic activity/Vol] 20 U/L Normal 10-42 [facility] Comment on above: Performed By: #### C BC, CMP ####[place] [id number] [facility] Bilirubin [Mass/Vol] 1.0 mg/dL Normal 0.3-1.2 [facility] Comment on above: Performed By: #### C BC, CMP ####[place] [id number] [facility] Calcium [Mass/Vol] 8.9 mg/dL Normal 8.2-10.2 [facility] Comment on above: Performed By: #### C BC, CMP ####[place] [id number] [place] Chloride [Moles/Vol] 95 mmol/L Normal 95-114 [facility] Comment on above: Performed By: #### C BC, CMP ####[place] [id number] [place] [address] [facility] CO2 [Moles/Vol] 29.5 mmol/L Normal 22.0-30.0 [facility] Comment on above: Performed By: #### C BC, CMP ####[place] [id number] [place] [address] [facility] Creatinine [Mass/Vol] 0.67 mg/dL Normal 0.44-1.03 [facility] Comment on above: Performed By: #### C BC, CMP ####[place] [id number] [place] [address] [facility] Creatinine Clr Calc Pharmacy 66.85 [facility] Comment on above: Result Comment: PERF ORMED BY: [facility] [address] [place] [id number] PATHOLOGIST FRONT TENDER FLIP GERMAN M.D. Performed By: #### C BC, CMP ####[address] [address] [facility] Estimated GFR ( Trista > 60 [facility] Comment on above: Result Comment: GFR estimated reference range: According to KDOQI guidelines, <60 ml/min/1.73m2 is sufficient to diagnose a patient with chronic kidney disease. Performed By: #### C BC, CMP ####[place] [id number] [place] [address] [facility] Estimated GFR (Non- Am > 60 [facility] Comment on above: Performed By: #### C BC, CMP ####[address] [address] [facility] Globulin (S) [Mass/Vol] 3.6 g/dL [facility] Comment on above: Performed By: #### C BC, CMP ####[place] [id number] [place] [address] [facility] Glucose [Mass/Vol] 146 mg/dL High 70-100 [facility] Comment on above: Result Comment: [place] Glucose Reference Range is dependent on time and content of last meal. Glucose of more than 200 mg/dL in a nonstressed, ambulatory subject supports the diagnosis of Diabetes Mellitus. ADA recommended reference range Performed By: #### C BC, CMP ####[facility] [place] [address] [facility] Potassium [Moles/Vol] 3.5 mmol/L Normal 3.5-5.1 [facility] Comment on above: Performed By: #### C BC, CMP ####[facility] [place] [address] [facility] Protein [Mass/Vol] 6.9 g/dL Normal 6.1-7.9 [facility] Comment on above: Performed By: #### C BC, CMP ####[place] [id number] [place] [address] [facility] Sodium [Moles/Vol] 136 mmol/L Normal 136-146 [facility] Comment on above: Performed By: #### C BC, CMP ####[facility] [place] [address] [facility] Urea nitrogen [Mass/Vol] 7 mg/dL Low 9-23 [facility] Comment on above: Performed By: #### C BC, CMP ####[facility] [place] [address] [facility] Creatinine and Glomerular fi ltration rate.predicted panel (S/P/Bld)Ordered By: Sumanth Lowe on 09-28-2021 Creatinine [Mass/Vol] 0.67 mg/dL 0.44-1.03 [facility] Dipstick and Microscopicon 0 09-28-2021 Appearance (U) Cloudy Critically abnormal Clear [facility] Comment on above: Order Comment: Name Collection Type:: Clean-Voided Midstream Performed By: #### G LULS #### Point of Care testing , Bacteria,Urine 3+ High None Seen [facility] Comment on above: Order Comment: Name Collection Type:: Clean-Voided Midstream Performed By: #### G LULS #### Point of Care testing , Bilirubin,Urine Negative Normal Negative [facility] Comment on above: Order Comment: Name Collection Type:: Clean-Voided Midstream Performed By: #### G LULS #### Point of Care testing , Color (U) Yellow Normal Yellow [facility] Comment on above: Order Comment: Name Collection Type:: Clean-Voided Midstream Performed By: #### G LULS #### Point of Care testing , Glucose Ql (U) Normal Normal Normal [facility] Comment on above: Order Comment: Name Collection Type:: Clean-Voided Midstream Performed By: #### G LULS #### Point of Care testing , Hyaline Casts,Urine 0-8 Normal 0-8 [facility] Comment on above: Order Comment: Name Collection Type:: Clean-Voided Midstream Performed By: #### G LULS #### Point of Care testing , Ketones Ql (U) 2+ High Negative [facility] Comment on above: Order Comment: Name Collection Type:: Clean-Voided Midstream Performed By: #### G LULS #### Point of Care testing , Leukocyte esterase Test strip Ql (U) 2+ High Negative [facility] Comment on above: Order Comment: Name Collection Type:: Clean-Voided Midstream Performed By: #### G LULS #### Point of Care testing , Nitrite,Urine Positive High Negative [facility] Comment on above: Order Comment: Name Collection Type:: Clean-Voided Midstream Performed By: #### G LULS #### Point of Care testing , Occult Blood,Urine 2+ High Negative [facility] Comment on above: Order Comment: Name Collection Type:: Clean-Voided Midstream Result Comment: PERF ORMED BY: [facility] [address] [place] [address] PATHOLOGIST FRONT TENDER FLIP GERMAN M.D. Performed By: #### G LULS #### Point of Care testing , pH (U) 6.5 [pH] Normal 5.0-9.0 [facility] Comment on above: Order Comment: Name Collection Type:: Clean-Voided Midstream Performed By: #### G LULS #### Point of Care testing , Protein,Urine Negative Normal Negative [facility] Comment on above: Order Comment: Name Collection Type:: Clean-Voided Midstream Performed By: #### G LULS #### Point of Care testing , RBC,Urine 10-19 High 0-4 [facility] Comment on above: Order Comment: Name Collection Type:: Clean-Voided Midstream Performed By: #### G LULS #### Point of Care testing , Specificy [place],Urine 1.013 Normal 1.001-1.03 0 [facility] Comment on above: Order Comment: Name Collection Type:: Clean-Voided Midstream Performed By: #### G LULS #### Point of Care testing , Squamous Epithelial Cell,Urine None Seen Normal 0-2 [facility] Comment on above: Order Comment: Name Collection Type:: Clean-Voided Midstream Performed By: #### G LULS #### Point of Care testing , Urobilinogen,Urine Normal Normal Normal [facility] Comment on above: Order Comment: Name Collection Type:: Clean-Voided Midstream Performed By: #### G LULS #### Point of Care testing , WBC,Urine 20-49 High 0-4 [facility] Comment on above: Order Comment: Name Collection Type:: Clean-Voided Midstream Performed By: #### G LULS #### Point of Care testing , Yeast,Urine None Seen Normal None Seen [facility] Comment on above: Order Comment: Name Collection Type:: Clean-Voided Midstream Result Comment: PERF ORMED BY: [place] [address] PATHOLOGIST FRONT TENDER FLIP GERMAN M.D. Performed By: #### G LULS #### Point of Care testing , ECG 12 lead ECGon 09-28-2021 ECG 12 lead ECG [facility] [place] [address] Electrocardiograph Report Signed Patient: Alton Barker MR#: [id number] : 1940 Acct:[id number] Age/Sex: 81 / F ADM Date: 09/27/21 Loc: ER Room: Type: [facility] ER Attending Dr: Ordering Provider: Sumanth [...] Signed By Sumanth Lowe DO 0601 Normal [facility] Eosinophils Auto (Bld) [#/Vo l]Ordered By: Sumanth Lowe on 09-28-2021 Eosinophils (Bld) [#/Vol] 0.0 10*3/uL 0.0-0.45 [facility] Eosinophils/100 WBC Auto (Bl d)Ordered By: Sumanth Lowe on 09-28-2021 Eosinophils/100 WBC (Bld) 0.4 % . [facility] Erythrocyte distribution wid th Auto (RBC) [Ratio]Ordered By: Sumanth Lowe on 09-28-2021 Erythrocyte distribution width (RBC) [Ratio] 15.9 % 11.9-15.3 [facility] Estimated glomerular filtrat ion rate (GFR) non- AmericanOrdered By: Sumanth Lowe on 09-28-2021 GFR/1.73 sq M.predicted among non-blacks MDRD (S/P/Bld) [Vol rate/Area] > 60 mL/Min [facility] Globulin Calc (S) [Mass/Vol] Ordered By: Sumanth Lowe on 09-28-2021 Globulin (S) [Mass/Vol] 3.6 g/dL [facility] Hematocrit Auto (Bld) [Volum e fraction]Ordered By: Sumanth Lowe on 09-28-2021 Hematocrit (Bld) [Volume fraction] 37.5 % 34.0-46.4 [facility] Ketones Auto test strip (U) [Mass/Vol]Ordered By: Sumanth Lowe on 09-28-2021 Ketones (U) [Mass/Vol] 2+ Negative [facility] Laboratory - Hematology and Cell countsOrdered By: Suamnth Lowe on 09-28-2021 Nucleated RBC/100 WBC (Bld) [Ratio] 0.0 % 0-0.5 [facility] - UrinalysisOrder ed By: Sumanth Lowe on 09-28-2021 Hyaline casts LM Ql (Urine sed) 0-8 [LPF] 0-8 [facility] Lymphocytes Auto (Bld) [#/Vo l]Ordered By: Sumanth Lowe on 09-28-2021 Lymphocytes (Bld) [#/Vol] 0.8 10*3/uL 1.00-4.8 [facility] Lymphocytes/100 WBC Auto (Bl d)Ordered By: Sumanth Lowe on 09-28-2021 Lymphocytes/100 WBC (Bld) 16.2 % . [facility] MCH Auto (RBC) [Entitic mass ]Ordered By: Sumanth Lowe on 09-28-2021 MCH (RBC) [Entitic mass] 29.5 pg 24.7-34.3 [facility] MCHC Auto (RBC) [Mass/Vol]Or dered By: Sumanth Lowe on 09-28-2021 MCHC (RBC) [Mass/Vol] 32.7 g/dL 32.0-35.0 [facility] MCV Auto (RBC) [Entitic vol] Ordered By: Sumanth Lowe on 09-28-2021 MCV (RBC) [Entitic vol] 90.3 fL 80-100 [facility] Monocytes Auto (Bld) [#/Vol] Ordered By: Sumanth Lowe on 09-28-2021 Monocytes (Bld) [#/Vol] 0.7 10*3/uL 0.0-0.8 [facility] Monocytes/100 WBC Auto (Bld) Ordered By: uSmanth Lowe on 09-28-2021 Monocytes/100 WBC (Bld) 13.9 % . [facility] Neutrophils Auto (Bld) [#/Vo l]Ordered By: Sumanth Lowe on 09-28-2021 Neutrophils (Bld) [#/Vol] 3.5 10*3/uL 1.8-7.7 [facility] Neutrophils/100 WBC Auto (Bl d)Ordered By: Sumanth Lowe on 09-28-2021 Neutrophils/100 WBC (Bld) 69.1 % . [facility] Nitrite Test strip Ql (U)Ord ered By: Sumanth Lowe on 09-28-2021 Nitrite Ql (U) Positive Negative [facility] No Panel InformationOrdered By: Sumanth Lowe on 09-28-2021 Estimated GFR () > 60 mL/Min [facility] Comment on above: GFR estimated refere nce range: According to KDOQI guidelines, <60 ml/min/1.73m2 is sufficient to diagnose a patient with chronic kidney disease. Pharmacy Creatinine Clearance (Chem 66.85 [facility] Platelet mean volume Auto (B ld) [Entitic vol]Ordered By: Sumanth Lowe on 09-28-2021 Platelet mean volume (Bld) [Entitic vol] 8.6 fL 6.3-10.7 [facility] Platelets Auto (Bld) [#/Vol] Ordered By: Sumanth Lowe on 09-28-2021 Platelets (Bld) [#/Vol] 154 10*3/uL 150-450 [facility] Protein Auto test strip (U) [Mass/Vol]Ordered By: Sumanth Lowe on 09-28-2021 Protein (U) [Mass/Vol] Negative Negative [facility] Protein [Mass/volume] in Ser um or PlasmaOrdered By: Sumanth Lowe on 09-28-2021 Protein [Mass/Vol] 6.9 g/dL 6.1-7.9 [facility] RBC Auto (Bld) [#/Vol]Ordere d By: Sumanth Lowe on 09-28-2021 RBC (Bld) [#/Vol] 4.16 10*6/uL 3.60-5.00 [facility] Serum or plasma alanine engel otransferase measurement without P-5'-P (enzymatic activiOrdered By: Sumanth Lowe on 09-28-2021 ALT No additional P-5'-P [Catalytic activity/Vol] 7 U/L 10-60 [facility] Serum or plasma albumin/glob ulin mass ratioOrdered By: Sumanth Lowe on 09-28-2021 Albumin/Globulin [Mass ratio] 0.9 {ratio} [facility] Serum or plasma alkaline bouchra sphatase measurement (enzymatic activity/volume)Ordered By: Sumanth Lowe on 09-28-2021 ALP [Catalytic activity/Vol] 51 U/L 32-92 [facility] Serum or plasma aspartate am inotransferase measurement (enzymatic activity/volume)Ordered By: Sumanth Lowe on 09-28-2021 AST [Catalytic activity/Vol] 20 U/L 10-42 [facility] Serum or plasma calcium alondra urement (mass/volume)Ordered By: Sumanth Lowe on 09-28-2021 Calcium [Mass/Vol] 8.9 mg/dL 8.2-10.2 [facility] Serum or plasma chloride link surement (moles/volume)Ordered By: Sumanth Lowe on 09-28-2021 Chloride [Moles/Vol] 95 mmol/L 95-114 [facility] Serum or plasma glucose alondra urement (mass/volume)Ordered By: Sumanth Lowe on 09-28-2021 Glucose [Mass/Vol] 146 mg/dL 70-100 [facility] Comment on above: ADA recommended refe rence range Random Glucose Reference Range is dependent on time and content of last meal. Glucose of more than 200 mg/dL in a nonstressed, ambulatory subject supports the diagnosis of Diabetes Mellitus. Serum or plasma potassium me asurement (moles/volume)Ordered By: Sumanth Lowe on 09-28-2021 Potassium [Moles/Vol] 3.5 mmol/L 3.5-5.1 [facility] Serum or plasma sodium measu rement (moles/volume)Ordered By: Sumanth Lowe on 09-28-2021 Sodium [Moles/Vol] 136 mmol/L 136-146 [facility] Serum or plasma total biliru bin measurement (mass/volume)Ordered By: Sumanth Lowe on 09-28-2021 Bilirubin [Mass/Vol] 1.0 mg/dL 0.3-1.2 [facility] Serum or plasma total carbon dioxide measurement (moles/volume)Ordered By: Sumanth Lowe on 09-28-2021 CO2 [Moles/Vol] 29.5 mmol/L 22.0-30.0 [facility] Serum or plasma urea nitroge n measurement (mass/volume)Ordered By: Sumanth Lowe on 09-28-2021 Urea nitrogen [Mass/Vol] 7 mg/dL 9-23 [facility] Specific gravity Auto test s trip (U) [Rel density]Ordered By: Sumanth Lowe on 09-28-2021 Specific gravity (U) [Rel density] 1.013 1.001-1.03 0 [facility] Squamous epithelial cells de tection in urine sediment by light microscopyOrdered By: Sumanth Lavelle on 09-28-2021 Epithelial cells.squamous LM Ql (Urine sed) None seen [HPF] 0-2 [facility] Urine Cultureon 09-28-2021 Bacteria identified Cx Nom (U) ORGANISM: Escherichia coli (O:ESCCOL) [place] Count >100,000 Aerobic JIMMY Charge (NUC86) SUSCEPTIBILITY [...] RESISTANT TO ALL B-LACTAM DRUGS. PERFORMED BY: [place] [id number] PATHOLOGIST FRONT TENDER FLIP GERMAN M.D. Normal [facility] Comment on above: Performed By: #### G LULS #### Point of Care testing , Urine bacteria detection by automated methodOrdered By: Sumanth Lowe on 09-28-2021 Bacteria Auto Ql (U) 3+ None Seen [facility] Urine clarity by refractomet ry automatedOrdered By: Sumanth Lowe on 09-28-2021 Clarity Refractometry automated (U) Cloudy Clear [facility] Urine glucose measurement by automated test strip (mass/volume)Ordered By: Sumanth Lowe on 09-28-2021 Glucose Auto test strip (U) [Mass/Vol] Normal mg/dL Normal [facility] Urine hemoglobin detection b y automated test stripOrdered By: Sumanth Lowe on 09-28-2021 Hemoglobin Auto test strip Ql (U) 2+ Negative [facility] Urine leukocyte esterase det ection by automated test stripOrdered By: Sumanth Lowe on 09-28-2021 Leukocyte esterase Auto test strip Ql (U) 2+ Negative [facility] Urobilinogen Auto test strip (U) [Mass/Vol]Ordered By: Sumanth Lowe on 09-28-2021 Urobilinogen (U) [Mass/Vol] Normal mg/dL Normal [facility] XR chest 2V*on 09-28-2021 XR chest 2V* [facility] Main [address] [address] XRay Report Signed Patient: Al[place] Barker MR#: [id number] : 1940 Acct:[id number] Age/Sex: 81 / F ADM Date: 09/27/21 Loc: ER Room: Type: [facility] ER Attending Dr: Copies to: Sumanth [...] Malin Jr., DJoannOJoann09/28/2021 9:27 AM Dictation Location: [place] [address] Transcribed By: [facility] 09/28/21926 Dictated By: Alcides Malin Jr, DO 09/28/21926 Signed By: 09/28/21926 Normal [facility] Yeast detection in urine sed iment by light microscopyOrdered By: Sumanth Lowe on 09-28-2021 Yeast LM Ql (Urine sed) None seen [HPF] None Seen [facility] pH Auto test strip (U)Ordere d By: Sumanth Lowe on 09-28-2021 pH (U) 6.5 [pH] 5.0-9.0 [facility] Prothrombin Time INRon 08-26 INR Coag (PPP) [Relative time] 2.1 {INR} [employer] Other Prothrombin Time INR [facility] [employer] Other Prothrombin Time INRon 08-05 INR Coag (PPP) [Relative time] 2.3 {INR} [employer] Other Prothrombin Time INR [facility] [employer] Other Complete Blood Count with Au to Diffon 07-16-2021 Basophils (Bld) [#/Vol] 0.02 10*3/uL Normal 0.00-0.20 [facility] Heavy Equipment Service Manager Comment on above: Performed By: #### L IPD, TSH, CMP, VITD, CBCAD #### [facility] [address] [place], [place] [id number] Basophils/100 WBC (Bld) 0.3 % Normal [facility] Heavy Equipment Service Manager Comment on above: Performed By: #### L IPD, TSH, CMP, VITD, CBCAD #### [facility] [address] [place], [place] [id number] Eosinophils (Bld) [#/Vol] 0.17 10*3/uL Normal 0.02-0.50 [facility] Specialist Comment on above: Performed By: #### L IPD, TSH, CMP, VITD, CBCAD #### [facility] [address] [place], [place] [id number] Eosinophils/100 WBC (Bld) 2.8 % Normal [facility] Specialist Comment on above: Performed By: #### L IPD, TSH, CMP, VITD, CBCAD #### [facility] [address] [place], [place] [id number] Erythrocyte distribution width (RBC) [Ratio] 15.0 % Normal 11.0-15.0 [facility] Heavy Equipment Service Manager Comment on above: Performed By: #### L IPD, TSH, CMP, VITD, CBCAD #### [facility] [address] [place], [place] [id number] Hematocrit (Bld) [Volume fraction] 39.2 % Normal 35.0-47.0 [facility] Specialist Comment on above: Performed By: #### L IPD, TSH, CMP, VITD, CBCAD #### [facility] [address] [place], [place] [id number] Hemoglobin (Bld) [Mass/Vol] 12.0 g/dL Normal 11.6-15.5 [facility] Heavy Equipment Service Manager Comment on above: Performed By: #### L IPD, TSH, CMP, VITD, CBCAD #### [facility] [address] [place], [place] [id number] Lymphocytes (Bld) [#/Vol] 1.7 10*3/uL Normal 0.9-3.9 [facility] Specialist Comment on above: Performed By: #### L IPD, TSH, CMP, VITD, CBCAD #### [facility] [address] [place], [place] [phone] Lymphocytes/100 WBC (Bld) 27.5 % Normal [facility] Specialist Comment on above: Performed By: #### L IPD, TSH, CMP, VITD, CBCAD #### [facility] [address] [place], [place] [id number] MCH (RBC) [Entitic mass] 29.4 pg Normal 27.0-33.0 [facility] Comment on above: Performed By: #### L IPD, TSH, CMP, VITD, CBCAD #### [facility] [address] [place], [place] [id number] MCHC (RBC) [Mass/Vol] 30.6 g/dL Low 32.0-36.0 [facility] Comment on above: Performed By: #### L IPD, TSH, CMP, VITD, CBCAD #### [facility] [address] [place], [place] [id number] MCV (RBC) [Entitic vol] 96 fL Normal 80-100 [facility] Comment on above: Performed By: #### L IPD, TSH, CMP, VITD, CBCAD #### [facility] [address] [place], [place] [id number] Monocytes (Bld) [#/Vol] 0.6 10*3/uL Normal 0.2-0.9 [facility] Comment on above: Performed By: #### L IPD, TSH, CMP, VITD, CBCAD #### [facility] [address] [place], [place] [id number] Monocytes/100 WBC (Bld) 10.5 % Normal [facility] Comment on above: Performed By: #### L IPD, TSH, CMP, VITD, CBCAD #### [facility] [address] [place], [place] [id number] Neutrophils (Bld) [#/Vol] 3.6 10*3/uL Normal 1.5-7.8 [facility] Comment on above: Performed By: #### L IPD, TSH, CMP, VITD, CBCAD #### [facility] [address] [place], [place] [id number] Neutrophils/100 WBC (Bld) 58.6 % Normal [facility] Comment on above: Performed By: #### L IPD, TSH, CMP, VITD, CBCAD #### [facility] [address] [place], [place] [id number] Platelet mean volume (Bld) [Entitic vol] 11.40 fL Normal 7.50-12.50 [facility] Specialist Comment on above: Performed By: #### L IPD, TSH, CMP, VITD, CBCAD #### [facility] [address] [place], [place] [id number] Platelets (Bld) [#/Vol] 193 10*3/uL Normal 140-400 [facility] Specialist Comment on above: Performed By: #### L IPD, TSH, CMP, VITD, CBCAD #### [facility] [address] [place], [place] [id number] RBC (Bld) [#/Vol] 4.08 10*6/uL Normal 3.90-5.20 [facility] Specialist Comment on above: Performed By: #### L IPD, TSH, CMP, VITD, CBCAD #### [facility] [address] [place], [place] [id number] RDW-SD 52.8 fL High 37.0-50.0 [facility] Specialist Comment on above: Performed By: #### L IPD, TSH, CMP, VITD, CBCAD #### [facility] [address] [place], [place] [id number] WBC (Bld) [#/Vol] 6.1 10*3/uL Normal 3.8-11.0 [facility] Heavy Equipment Service Manager Comment on above: Performed By: #### L IPD, TSH, CMP, VITD, CBCAD #### [facility] [address] [place], [place] [id number] Comprehensive Metabolic Pane [facility] 07-16-2021 Albumin [Mass/Vol] 4.1 g/dL Normal 3.6-5.1 [facility] Heavy Equipment Service Manager Comment on above: Performed By: #### L IPD, TSH, CMP, VITD, CBCAD #### [facility] [address] [place], [place] [id number] Albumin/Globulin [Mass ratio] 1.5 {ratio} Normal 1.0-2.5 [facility] Specialist Comment on above: Performed By: #### L IPD, TSH, CMP, VITD, CBCAD #### [facility] [address] [place], [place] [id number] ALP [Catalytic activity/Vol] 104 U/L Normal 35-119 [facility] Comment on above: Performed By: #### L IPD, TSH, CMP, VITD, CBCAD #### [facility] [address] [place], [place] [phone] ALT [Catalytic activity/Vol] 7 U/L Normal 6-33 [facility] Comment on above: Result Comment: 02/11 Female reference range changed. Performed By: #### L IPD, TSH, CMP, VITD, CBCAD #### [facility] [address] [place], [place] [id number] Anion gap [Moles/Vol] 18 mmol/L Normal 12-20 [facility] Comment on above: Result Comment: Effe ctive 03/19/2019 reference range changed. Performed By: #### L IPD, TSH, CMP, VITD, CBCAD #### [facility] [address] [place], [place] [id number] AST [Catalytic activity/Vol] 16 U/L Normal 9-34 [facility] Comment on above: Performed By: #### L IPD, TSH, CMP, VITD, CBCAD #### [facility] [address] [place], [place] [id number] Bilirubin [Mass/Vol] 0.92 mg/dL Normal 0.30-1.20 [place] Comment on above: Performed By: #### L IPD, TSH, CMP, VITD, CBCAD #### [facility] [address] [place], [place] [id number] BUN/CREA 29 Ratio High 6-22 [facility] Comment on above: Performed By: #### L IPD, TSH, CMP, VITD, CBCAD #### [facility] [address] [place], [place] [id number] Calcium [Mass/Vol] 9.5 mg/dL Normal 8.6-10.2 [facility] Comment on above: Performed By: #### L IPD, TSH, CMP, VITD, CBCAD #### [facility] [address] [place], [place] [id number] Chloride [Moles/Vol] 99 mmol/L Normal 98-107 [place] [employer] Service Manager Comment on above: Performed By: #### L IPD, TSH, CMP, VITD, CBCAD #### [facility] [address] [place], [place] [id number] CO2 [Moles/Vol] 26 mmol/L Normal 20-31 [facility] Comment on above: Performed By: #### L IPD, TSH, CMP, VITD, CBCAD #### [facility] [address] [place], [place] [id number] Creatinine [Mass/Vol] 0.5 mg/dL Low 0.6-1.4 [facility] Comment on above: Performed By: #### L IPD, TSH, CMP, VITD, CBCAD #### [facility] [address] [place], [place] [id number] eGFRAA 135 mL/min/1.73m2 Normal >60 [facility] Specialist Comment on above: Performed By: #### L IPD, TSH, CMP, VITD, CBCAD #### [facility] [address] [place], [place] [id number] eGFRNAA 111 mL/min/1.73m2 Normal >60 [facility] Comment on above: Performed By: #### L IPD, TSH, CMP, VITD, CBCAD #### [facility] [address] [place], [place] [id number] Globulin (S) [Mass/Vol] 2.7 g/dL Normal 1.9-3.7 [facility] Specialist Comment on above: Performed By: #### L IPD, TSH, CMP, VITD, CBCAD #### [facility] [address] [place], [place] [id number] Glucose [Mass/Vol] 222 mg/dL High 65-99 [facility] Specialist Comment on above: Result Comment: For FASTING Glucose --- ADA reference ranges: Normal 65-99 mg/dl Prediabetes 100-125 Diabetes >/= 126 Performed By: #### L IPD, TSH, CMP, VITD, CBCAD #### [facility] [address] [place], [place] [id number] Potassium [Moles/Vol] 4.7 mmol/L Normal 3.5-5.[address] [facility] Specialist Comment on above: Performed By: #### L IPD, TSH, CMP, VITD, CBCAD #### [facility] [address] [place], [place] [id number] Protein [Mass/Vol] 6.8 g/dL Normal 6.1-8.1 [place] [facility] [employer] Comment on above: Performed By: #### L IPD, TSH, CMP, VITD, CBCAD #### [facility] [address] [place], [place] [id number] Sodium [Moles/Vol] 138 mmol/L Normal 135-146 Marcia rn [employer] Manager Comment on above: Performed By: #### L IPD, TSH, CMP, VITD, CBCAD #### [facility] [address] [place], [place] [id number] Urea nitrogen [Mass/Vol] 15 mg/dL Normal 7-25 [facility] Heavy Equipment Service Manager Comment on above: Performed By: #### L IPD, TSH, CMP, VITD, CBCAD #### [facility] [address] [place], [place] [id number] Hemoglobin A1Con 07-16-2021 EAG 194.38 Normal [facility] Specialist Comment on above: Performed By: #### A 1C #### [facility] [address] [place], [place] [id number] HbA1c (Bld) [Mass fraction] 8.4 % High 4.0-6.0 [facility] Heavy Equipment Service Manager Comment on above: Performed By: #### A 1C #### [facility] [address] [place], [place] [id number] Lipid Panelon 07-16-2021 Cholesterol [Mass/Vol] 172 mg/dL Normal 125-200 [facility] Heavy Equipment Service Manager Comment on above: Result Comment: Low risk < 200mg/dL Borderline risk 201-239 mg/dl High risk > or equal to 240 Performed By: #### L IPD, TSH, CMP, VITD, CBCAD #### [facility] [address] [place], [place] [id number] Cholesterol in HDL [Mass/Vol] 57 mg/dL Normal >40 [facility] Heavy Equipment Service Manager Comment on above: Result Comment: High Cardiovascular Risk HDL <40 mg/dL Low Cardiovascular Risk HDL > or equal to 60 mg/dl Performed By: #### L IPD, TSH, CMP, VITD, CBCAD #### [facility] [address] [place], [place] [id number] Cholesterol in LDL [Mass/Vol] 88 mg/dL Normal [facility] Specialist Comment on above: Result Comment: LDL ATP III CLASSIFICATION LDL less than 100 mg/dl Optimal LDL 100-129 mg/dl Near or above optimal LDL 130-159 Borderline high LDL 160-189 High LDL greater than 189 mg/dl Very High Performed By: #### L IPD, TSH, CMP, VITD, CBCAD #### [facility] [address] [place], [place] [id number] Cholesterol in VLDL [Mass/Vol] 27 mg/dL Normal [facility] Specialist Comment on above: Performed By: #### L IPD, TSH, CMP, VITD, CBCAD #### [facility] [address] [place], [place] [id number] Cholesterol.total/Cho lesterol in HDL [Mass ratio] 3 {ratio} Normal [facility] Specialist Comment on above: Performed By: #### L IPD, TSH, CMP, VITD, CBCAD #### [facility] [address] [place], [place] [id number] Triglyceride [Mass/Vol] 133 mg/dL Normal 30-150 [facility] Heavy Equipment Service Manager Comment on above: Result Comment: TRIG ATPIII CLASSIFICATIONS TRIG less than 150 mg/dl Normal TRIG 150-199 mg/dl Borderline High TRIG 200-500 mg/dl High TRIG greather than 500 mg/dl Very High Performed By: #### L IPD, TSH, CMP, VITD, CBCAD #### [facility] [address] [place], [place] [id number] TSHon 07-16-2021 TSH 1.480 uIU/mL Normal 0.400-4.50 0 [facility] Specialist Comment on above: Performed By: #### L IPD, TSH, CMP, VITD, CBCAD #### [facility] [address] [place], [place] [id number] Vitamin B12on 07-16-2021 Cobalamin (Vitamin B12) [Mass/Vol] 1009 pg/mL High 211-946 [facility] Specialist Comment on above: Performed By: #### B 12 #### [facility] [address] [place], [place] [id number] Vitamin D 25-OHon 07-16-2021 VIT D 25 [place] 56 ng/ml Normal >29 [facility] Heavy Equipment Service Manager Comment on above: Result Comment: Frederic min D Status Deficiency <20 ng/mL Insufficiency 20-29 ng/mL Optimal 30-100 ng/mL Possible Toxicity >=150 ng/mL Performed By: #### L IPD, TSH, CMP, VITD, CBCAD #### [facility] [address] [facility] [place] [id number] Prothrombin Time INRon 06-10 INR Coag (PPP) [Relative time] 5.2 {INR} [employer] Other Prothrombin Time INR [employer] [address] Other Prothrombin Time INRon 05-26 INR Coag (PPP) [Relative time] 3.9 {INR} [employer] Other Prothrombin Time INR [employer] [address] Other Prothrombin Time INRon 03-25 INR Coag (PPP) [Relative time] 3.2 {INR} [employer] Other Prothrombin Time INR [employer] [address] Other Prothrombin Time INRon 02-25 INR Coag (PPP) [Relative time] 1.9 {INR} [employer] Other Prothrombin Time INR [employer] [address] Other Prothrombin Time INRon 01-28 INR Coag (PPP) [Relative time] 2.2 {INR} [employer] Other Prothrombin Time INR [employer] [address] Other Prothrombin Time INRon 12-10 INR Coag (PPP) [Relative time] 2.4 {INR} [employer] Other Prothrombin Time INR [employer] Private Other Office Visit (Neuro-Movement -PD)on 11-01-2017 Office Visit (Ghtjy-Rpxsxkmv-WX) History of Present IllnessALTON BARKER is here [...] asleep and no acting out of dreams. [place] Sleepiness Scale is 14. She reports concern [...] MG Oral Tablet Vitals Vital Signs Recorded: [id number] 01:33PMHeart Lzpu12Stupvegz805, GVKPhstojnwg67, PHJCqhieo162 lb 1 ozBMI Oromwzzxht71.59BSA Calculated2.27 Physical ExamConstitutional: General appearance: no acute [...] N; Verified Transmission to [facility] [id number]; Last Updated By: [employer]; 10/26/2017 2:12:16 PM Provider ImpressionsShe is a [...] and treatment options. 25 minutes was spent uxxv-ty-nixp in the visit. Patient Discussion/SummaryI am recommending [...] 14:53-0400 Body height 167.6 cm Gloria Perez BIAS BINDING FOLDER.TOOL MAKER APPRENTICE Work Phone: [facility] 06-23-2023 14:53-0400 Body weight 107.6 kg Gloria Perez BIAS BINDING FOLDER.TOOL MAKER APPRENTICE Work Phone: [facility] 06-23-2023 14:53-0400 SaO2% (BldA) [Mass fraction] 99 % Gloria Perez BIAS BINDING FOLDER.TOOL MAKER APPRENTICE Work Phone: [facility] 01-20-2023 14:52-0500 Body height 167.6 cm Gloria Perez BIAS BINDING FOLDER.TOOL MAKER APPRENTICE Work Phone: [facility] 01-20-2023 14:52-0500 SaO2% (BldA) [Mass fraction] 98 % Gloria Perez BIAS BINDING FOLDER.TOOL MAKER APPRENTICE Work Phone: [facility] 07-08-2022 14:54-0400 Body height 167.6 cm Gloria Perez BIAS BINDING FOLDER.TOOL MAKER APPRENTICE Work Phone: [facility] 07-08-2022 14:54-0400 Body weight 85.14 kg Gloria Perez BIAS BINDING FOLDER.TOOL MAKER APPRENTICE Work Phone: [facility] 07-08-2022 14:54-0400 SaO2% (BldA) [Mass fraction] 98 % Gloria Perez BIAS BINDING FOLDER.TOOL MAKER APPRENTICE Work Phone: [facility] 05-20-2022 09:30-0500 Diastolic blood pressure 60 mm[Hg] DO Honey Rabago Work Phone: [facility] 05-20-2022 09:30-0500 Heart rate 89 /min DO Honey Rabago Work Phone: [facility] 05-20-2022 09:30-0500 Systolic blood pressure 106 mm[Hg] DO Honey Rabago Work Phone: [facility] 11-25-2021 16:00-0400 Body temperature 97.4 [degF] DO Honey Vaschak Work Phone: [facility] 11-25-2021 16:00-0400 Diastolic blood pressure 61 mm[Hg] DO Honey Vaschak Work Phone: [facility] 11-25-2021 16:00-0400 Heart rate 98 /min DO Honey Mukulk Work Phone: [facility] 11-25-2021 16:00-0400 Respiratory rate 16 /min DO Honey Mukulk Work Phone: [facility] 11-25-2021 16:00-0400 SaO2% (BldA) [Mass fraction] 98 % DO Honey Danilochak Work Phone: [facility] 11-25-2021 16:00-0400 Systolic blood pressure 96 mm[Hg] DO Honey Mukulk Work Phone: [facility] 11-24-2021 12:10-0400 Body height 167.64 cm DO Honey Hima Work Phone: [facility] 11-22-2021 06:00-0400 Body weight 92.8 kg DO Honey Mukulk Work Phone: [facility] 11-13-2021 21:44-0400 Body temperature 98.1 [degF] DO Honey Mukulk Work Phone: [facility] 11-13-2021 21:44-0400 Diastolic blood pressure 71 mm[Hg] DO Honey Mukulk Work Phone: [facility] 11-13-2021 21:44-0400 Heart rate 92 /min DO Honey Mukulk Work Phone: [facility] 11-13-2021 21:44-0400 Respiratory rate 18 /min DO Honey Mukulk Work Phone: [facility] 11-13-2021 21:44-0400 SaO2% (BldA) [Mass fraction] 98 % DO Honey Vaschak Work Phone: [facility] 11-13-2021 21:44-0400 Systolic blood pressure 112 mm[Hg] DO Honey Vaschak Work Phone: [facility] 11-12-2021 16:00-0400 Body temperature 97.6 [degF] DO Honey Danilochak Work Phone: [facility] 11-12-2021 16:00-0400 Diastolic blood pressure 63 mm[Hg] DO Honey Danilochak Work Phone: [facility] 11-12-2021 16:00-0400 Heart rate 96 /min DO Honey Mukulk Work Phone: [facility] 11-12-2021 16:00-0400 Respiratory rate 16 /min DO Honey Mukulk Work Phone: [facility] 11-12-2021 16:00-0400 SaO2% (BldA) [Mass fraction] 98 % DO Honey Danilochak Work Phone: [facility] 11-12-2021 16:00-0400 Systolic blood pressure 98 mm[Hg] DO Honey Danilochak Work Phone: [facility] 11-12-2021 10:30-0400 Body height 167.64 cm DO Honey Danilochak Work Phone: [facility] 11-11-2021 15:00-0400 Body weight 92.98 kg DO Honey Danilochak Work Phone: [facility] 11-11-2021 08:00-0400 Body temperature 97.9 [degF] DO Honey Danilochak Work Phone: [facility] 11-11-2021 08:00-0400 Diastolic blood pressure 67 mm[Hg] DO Honey Vaschak Work Phone: [facility] 11-11-2021 08:00-0400 Heart rate 87 /min DO Honey Vaschak Work Phone: [facility] 11-11-2021 08:00-0400 SaO2% (BldA) [Mass fraction] 95 % DO Honey Vaschak Work Phone: [facility] 11-11-2021 08:00-0400 Systolic blood pressure 103 mm[Hg] DO Honey Vaschak Work Phone: [facility] 11-11-2021 05:58-0400 Respiratory rate 17 /min DO Honey Vaschak Work Phone: [facility] 11-11-2021 04:10-0400 Body weight 93.3 kg DO Honey Vaschak Work Phone: [facility] 11-05-2021 16:33-0400 Body height 167.64 cm DO Honey Vaschak Work Phone: [facility] 10-19-2021 23:25-0400 Diastolic blood pressure 78 mm[Hg] DO Honey Vaschak Work Phone: [facility] 10-19-2021 23:25-0400 Heart rate 83 /min DO Honey Vaschak Work Phone: [facility] 10-19-2021 23:25-0400 Respiratory rate 18 /min DO Honey Vaschak Work Phone: [facility] 10-19-2021 23:25-0400 SaO2% (BldA) [Mass fraction] 100 % DO Honey Vaschak Work Phone: [facility] 10-19-2021 23:25-0400 Systolic blood pressure 164 mm[Hg] DO Honey Vaschak Work Phone: [facility] 10-19-2021 19:51-0400 Body temperature 97.6 [degF] DO Honey Vaschak Work Phone: [facility] 10-19-2021 19:48-0400 Body height 167.64 cm DO Honey Vaschak Work Phone: [facility] 10-19-2021 19:48-0400 Body weight 98.6 kg DO Honey Vaschak Work Phone: [facility] 10-01-2021 11:58-0400 Body height 167.6 cm Gloria Perez BIAS BINDING FOLDER.TOOL MAKER APPRENTICE Work Phone: [facility] 10-01-2021 11:58-0400 Body weight 101.06 kg Gloria Perez BIAS BINDING FOLDER.TOOL MAKER APPRENTICE Work Phone: [facility] 10-01-2021 11:58-0400 SaO2% (BldA) [Mass fraction] 98 % Gloria Perez BIAS BINDING FOLDER.TOOL MAKER APPRENTICE Work Phone: [facility] 09-28-2021 02:06-0400 Heart rate 86 /min DO Honey Danilochak Work Phone: [facility] 09-28-2021 00:01-0400 Body height 167.64 cm DO Honey Mukulk Work Phone: [facility] 09-28-2021 00:01-0400 Body mass index (BMI) [Ratio] 35.5 kg/m2 DO Honey Vaschak Work Phone: [facility] 09-28-2021 00:01-0400 Body weight 99.79 kg DO Honey Danilochak Work Phone: [facility] 09-27-2021 23:57-0400 Body temperature 99.6 [degF] DO Honey Vaschak Work Phone: [facility] 09-27-2021 23:57-0400 Diastolic blood pressure 59 mm[Hg] DO Honey Vaschak Work Phone: [facility] 09-27-2021 23:57-0400 Respiratory rate 16 /min DO Honey Danilochak Work Phone: [facility] 07-17-2022 23:57-0400 SaO2% (BldA) [Mass fraction] 97 % DO Honey Rabago Work Phone: [facility] 09-27-2021 23:57-0400 Systolic blood pressure 125 mm[Hg] DO Honey Rabago Work Phone: [facility] 07-31-2020 16:20-0400 Body height 167.64 cm Honey Rabago Work Phone: [facility] 07-31-2020 16:20-0400 Body mass index (BMI) [Ratio] 41.6 kg/m2 Honey GilmanINRIX Work Phone: [facility] 07-31-2020 16:20-0400 Body weight 117.02 kg Honey Rabago Work Phone: [facility] 07-31-2020 16:19-0400 Body temperature 98.1 [degF] Honey GilmanINRIX Work Phone: [facility] 07-31-2020 16:19-0400 Diastolic blood pressure 70 mm[Hg] Honey GilmanINRIX Work Phone: [facility] 07-31-2020 16:19-0400 Heart rate 90 /min Honey Rabago Work Phone: [facility] 07-31-2020 16:19-0400 Respiratory rate 18 /min Honey Rabago Work Phone: [facility] 07-31-2020 16:19-0400 SaO2% (BldA) [Mass fraction] 98 % Honey Rabago Work Phone: [facility] 07-31-2020 16:19-0400 Systolic blood pressure 155 mm[Hg] Honey Rabago Work Phone: [facility] Encounters Encounter Date Encounter Type Care Provider Facility Start: 08-18-2023 End: 08-18-2023 ambulatory URBANO HUTTON Not Available Start: 08-16-2023 End: 08-16-2023 ambulatory VALORIE SULLIVAN Not Available Start: 07-29-2023 End: 07-29-2023 ambulatory HONEY RABAGO Not Available Start: 06-23-2023 End: 06-23-2023 ambulatory GLORIA PEREZ Facility:[facility] Start: 06-23-2023 End: 06-23-2023 Patient encounter procedure Gloria Perez APRN.TOOL MAKER APPRENTICE Work Phone: Neurology Comment on above: Depression [...] Available Start: 02-11-2023 Telephone encounter Gloria blankenship APRN.TOOL MAKER APPRENTICE Work Phone: Neurology Comment on above: Medication Problem Start: 01-25-2023 End: 01-25-2023 ambulatory URBANO HUTTON Not Available Start: 01-20-2023 End: 01-20-2023 ambulatory GLORIA PEREZ Facility:[facility] Start: 01-20-2023 End: 01-20-2023 Patient encounter procedure Gloria Perez APRN.TOOL MAKER APPRENTICE Work Phone: Neurology Comment on above: Parkinson's disease without dyskinesia, with fluctuating manifestations (Primary Dx); Depression with anxiety Start: 07-14-2022 End: 07-14-[address] HONEY RABAGO Facility:[facility] Start: 07-12-2022 End: 07-12-[address] HONEY RABAGO Facility:[facility] Start: 07-08-2022 End: 07-08-2022 ambulatory HONEY RABAGO Facility:[facility] Start: 07-08-2022 End: 07-08-2022 Patient encounter procedure Gloria Perez APRN.TOOL MAKER APPRENTICE Work Phone: Neurology Comment on above: Parkinson's disease (HCC) (Primary Dx); Depression with anxiety Start: 06-01-2022 End: 06-01-[address] HONEY RABAGO Facility:[facility] Start: 05-31-2022 ambulatory Gloria Perez APRN.TOOL MAKER APPRENTICE Work Phone: Neurology Comment on above: UPDATE: ALTON CRAWFORD : [birth year] Start: 05-20-2022 End: 05-20-2022 ambulatory Honey Rabago Facility:[facility] Start: 05-20-2022 End: 05-20-2022 ambulatory DO Honey Rabago Work Phone: [facility] Work Phone: Start: 05-20-2022 End: 05-20-2022 Discharged Recurring DO Honey Rabago Work Phone: [facility] - [facility]/P Work Phone: Start: 04-13-2022 Refill Gloria Perez APRN.TOOL MAKER APPRENTICE Work Phone: Neurology Comment on above: Refill Request Start: 02-15-2022 Telephone encounter Gloria blankenship APRN.TOOL MAKER APPRENTICE Work Phone: Neurology Comment on above: Patient Update Start: 02-02-2022 End: 02-03-[address] HONEY RABAGO Facility:[facility] Start: 01-08-2022 End: 01-08-2022 ambulatory Anu Alva Other [employer] Other Start: 01-08-2022 Telephone encounter Anu Alva [facility] Start: 12-30-2021 End: 12-30-2021 ambulatory Honey Rabago Facility:[facility] Start: 12-30-2021 End: 12-30-2021 Patient encounter procedure DO Honey Rabago Work Phone: [facility] Start: 12-29-2021 End: 12-30-[address] HONEY RABAGO Facility:[facility] Start: 12-21-2021 End: 12-21-[address] HONEY RAABGO Facility:[facility] Start: 12-15-2021 (Repeat [facility]) Anu Juan Migueljulius [facility] Start: 12-15-2021 End: 12-15-2021 ambulatory Anu Alva Other [employer] Other Start: 12-14-2021 End: 12-14-[address] HONEY RABAGO Facility:[facility] Start: 12-01-2021 (Repeat [facility]) Anu Alva [facility] Start: 12-01-2021 End: 12-01-2021 ambulatory Anu Alva Other [employer] Other Start: 11-30-2021 End: 11-30-[address] HONEY RABAGO Facility:[facility] Start: 11-11-2021 End: 11-25-2021 Evaluation and management of inpatient Alcides Moya Facility:[facility] Start: 11-11-2021 End: 11-25-2021 Evaluation and management of inpatient DO Méndez Danilokoki Work Phone: [facility] Start: 11-05-2021 End: 11-05-2021 ambulatory Oswaldo Almonte Other [employer] Other Start: 11-05-2021 Patient encounter procedure Oswaldo Almonte [facility] Start: 11-05-2021 Telephone encounter Gloria blankenship APRN.TOOL MAKER APPRENTICE Work Phone: Neurology Comment on above: Appointment; Patient Update (Called to schedule follow up. Patient in hospital.) Start: 11-04-2021 End: 11-11-2021 ambulatory Honey Rabago Facility:[facility] Start: 11-04-2021 End: 11-11-2021 Evaluation and management of inpatient DO Méndez Danilokoki Work Phone: [facility] Start: 10-26-2021 ambulatory Gloria Perez APRN.TOOL MAKER APPRENTICE Work Phone: Neurology Comment on above: ALTON BARKER UPDATE MESSAGE #3 Start: 10-22-2021 Registered Recurring DO Honey Rabago Work Phone: [facility] Start: 10-22-2021 ([facility] R A/c) [facility] Re peat A/C Anu Fitt [facility] Start: 10-22-2021 End: 10-23-2021 ambulatory Honey Rabago [employer] Other Start: 10-19-2021 End: 10-20-2021 Emergency department patient visit Holger Dorado Facility:[facility] Start: 10-19-2021 End: 10-20-2021 Emergency department patient visit DO Honey Rabago Work Phone: [facility]Emergency [facility] Start: 10-01-2021 End: 10-01-2021 Patient encounter procedure Gloria Perez APRN.TOOL MAKER APPRENTICE Work Phone: Neurology Comment on above: Recurrent episodes o f unresponsiveness (Primary Dx); Parkinson's disease (HCC); Depression with anxiety; Fatigue, unspecified type; Excessive daytime sleepiness Start: 09-29-2021 ([facility] R A/c) [facility] Re peat A/C Anu Fitt [facility] Start: 09-29-2021 End: 09-29-2021 ambulatory Anu Fitt Other [employer] Other Start: 09-28-2021 End: 09-28-2021 Emergency department patient visit Sumanth Lowe Facility:[facility] Start: 09-27-2021 End: 09-28-2021 Emergency department patient visit DO Honey Rabago Work Phone: [facility] Start: 09-23-2021 End: 09-23-2021 ambulatory Anu Fitt Other [employer] Other Start: 09-23-2021 Telephone encounter Anu Juan Miguelt [facility] Start: 08-26-2021 ([facility] R A/c) [facility] Re peat A/C Anu Fitt [facility] Start: 08-26-2021 End: 08-26-2021 ambulatory Anu Fitt Other [employer] Other Start: 08-05-2021 ([facility] R A/c) [facility] Re peat A/C Anu Fitt [facility] Start: 08-05-2021 End: 08-05-2021 ambulatory Anu Fitt Other [employer] Other Start: 07-20-2021 ([facility] R A/c) [facility] Re peat A/C Anu Fitt [facility] Start: 07-20-2021 End: 07-20-2021 ambulatory Anu Fitt Other [employer] Other Start: 06-10-2021 ([facility] R A/c) [facility] Re peat A/C Anu Fitt [facility] Start: 06-10-2021 End: 06-10-2021 ambulatory Anu Fitt Other [employer] Other Start: 05-26-2021 ([facility] R A/c) [facility] Re peat A/C Anu Fitt [facility] Start: 05-26-2021 End: 05-26-2021 ambulatory Anu Fitt Other [employer] Other Start: 05-19-2021 End: 05-19-2021 ambulatory Anu Fitt Other [employer] Other Start: 05-19-2021 Telephone encounter Anu Nida [facility] Start: 04-21-2021 End: 04-21-2021 ambulatory Anu Fitt Other [employer] Other Start: 04-21-2021 Telephone encounter Anu Fitt [facility] Start: 04-15-2021 End: 04-15-2021 ambulatory Anu Fitt Other [employer] Other Start: 04-15-2021 Telephone encounter Anu Fitt [facility] Start: 03-25-2021 ([facility] R A/c) [facility] Re peat A/C Anu Fitt [facility] Start: 03-25-2021 End: 03-25-2021 ambulatory Anu Fitt Other [employer] Other Start: 02-25-2021 ([facility] R A/c) [facility] Re peat A/C Anu Fitt [facility] Start: 02-25-2021 End: 02-25-2021 ambulatory Anu Fitt Other [employer] Other Start: 01-28-2021 ([facility] R A/c) [facility] Re peat A/C Anu Fitt [facility] Start: 01-28-2021 End: 01-28-2021 ambulatory Anu Fitt Other [employer] Other Start: 01-21-2021 End: 01-21-2021 ambulatory Anu Fitt Other [employer] Other Start: 01-21-2021 Telephone encounter Anu Fitt [facility] Start: 01-07-2021 End: 01-07-2021 ambulatory Anu Fitt Other [employer] Other Start: 01-07-2021 Telephone encounter Anu Fitt [facility] Start: 12-10-2020 ([facility] R A/c) [facility] Re peat A/C Anu Alva [facility] Start: 07-31-2020 End: 07-31-2020 Emergency department patient visit Honey Rabago Work Phone: -Emergency Room Start: 06-18-2020 Registered Recurring Honey jaraaura Work Phone: -[facility] Procedures Date Procedure Procedure Detail Performing Clinician [...] Adult depression scr eening assessment Gloria Perez BIAS BINDING FOLDER.TOOL MAKER APPRENTICE Work Phone: Start: 09-28-2021 Plain chest X-ray [...] Start: 03-28-2026 Diabetes Screening Diabetes Screenjason soto [facility] Start: 01-23-2024 Glaucoma screening Diabetes: R etinopathy Screening [facility] Start: 12-04-2023 DIABETES SCREEN DIABETES SCREEN [facility] Start: 12-04-2023 Diabetes Screening Diabetes Screenin charles [facility] Start: 10-06-2023 End: 10-06-2023 Patient encounter procedure 10/06/2023 10:50 AM EDT Office Visit [facility] [address] [place] [id number] Nicol Aponte MD [address] [place] [address] [facility] Start: 07-29-2023 Medicare Annual Wellness (AWV) Medicare Annual Wellness (AWV) [facility] Healthcare Start: 07-27-2023 End: 07-27-2023 Patient encounter procedure 07/27/2023 2:00 PM EDT Office Visit [facility] [address] [place] [id number] Honey Rabago DO [address] [place] [address] [facility] Start: 06-27-2023 Hemoglobin A1c measurement Diabetes: Hemoglobin A1C [facility] Start: 05-04-2023 End: 05-04-2023 Patient encounter procedure 05/04/2023 1:00 PM EST Procedure Visit [facility] [address] [place] [phone] Urbano Hutton DPM [address] [place] [address] [facility] Start: 03-14-2023 Advance Directive Discussion Advance Directive Discussion [facility] Start: 11-12-2022 Covid-19 Vaccine ( season) Covid-19 Vaccine () [facility] Start: 09-29-2022 Adult depression screening assessment DEPRESSION SCREENING [facility] Start: 03-14-2022 ADVANCE DIRECTIVE DISCUSSION ADVANCE DIRECTIVE DISCUSSION [facility] Start: 03-14-2022 DEPRESSION ASSESSMENT DEPRESSION ASS ESSMENT [facility] Start: 12-11-2021 [facility] Work Phone: Start: 12-10-2021 [facility] Work Phone: Start: 12-09-2021 [facility] Work Phone: Start: 12-08-2021 [facility] Work Phone: Start: 12-07-2021 [facility] Work Phone: Start: 12-06-2021 [facility] Work Phone: Start: 12-05-2021 [facility] Work Phone: Start: 12-04-2021 [facility] Work Phone: Start: 12-03-2021 [facility] Work Phone: Start: 12-02-2021 [facility] Work Phone: Start: 12-01-2021 [facility] Work Phone: Start: 11-30-2021 [facility] Work Phone: Start: 11-29-2021 [facility] Work Phone: Start: 11-28-2021 [facility] Work Phone: Start: 11-27-2021 [facility] Work Phone: Start: 11-26-2021 [facility] Work Phone: Start: 11-25-2021 [facility] Work Phone: Start: 11-24-2021 End: 11-24-2021 [facility] Start: 11-23-2021 [facility] Start: 11-22-2021 [facility] Work Phone: Start: 11-21-2021 [facility] Work Phone: Start: 11-20-2021 [facility] Work Phone: Start: 11-19-2021 [facility] Work Phone: Start: 11-18-2021 [facility] Work Phone: Start: 11-17-2021 [facility] Work Phone: Start: 11-16-2021 [facility] Work Phone: Start: 11-15-2021 [facility] Work Phone: Start: 11-14-2021 [facility] Work Phone: Start: 11-13-2021 [facility] Work Phone: Start: 11-12-2021 Influenza vaccination INFLUENZA (#1) [facility] Start: 11-11-2021 Administration of prophylactic treatment [facility] Start: 11-11-2021 Hospital admission [facility] Start: 11-11-2021 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 bottler [facility] Start: 11-11-2021 [facility] Work Phone: Start: 11-11-2021 Evaluation and management of inpatient Back pain [facility] Start: 11-09-2021 [facility] Start: 11-05-2021 MR lumbar spine wo con MR lumbar spi ne wo con [facility] Start: 11-05-2021 Administration of prophylactic treatment [facility] Start: 11-05-2021 Administration of prophylactic treatment [facility] Start: 11-05-2021 Consultation [facility] Start: 11-04-2021 Referral to psychiatrist [facility] Start: 11-04-2021 Hospital admission [facility] Start: 11-04-2021 End: 11-11-2021 Evaluation and management of inpatient Back pain [facility] Start: 11-04-2021 CT of head without contrast CT head/brain wo [facility] Start: 11-04-2021 Computed tomography of thoracic spine without contrast CT thoracic spine wo [facility] Start: 11-04-2021 CT cervical spine without contrast CT cervical spine wo [facility] Start: 11-04-2021 CT of lumbar spine without contrast CT lumbar spine wo [facility] Start: 10-22-2021 Registered Recurring Registered Recu rring [facility] Start: 07-28-2021 Urine screening for protein Diabetes: Urine Protein Screening [facility] Start: 05-20-2021 COVID-19 VACCINE (4 - Booster for Moderna series) COVID-19 VACCINE (4 - Booster for Moderna series) [facility] Start: 03-17-2021 COVID-19 VACCINE (4 - Booster for Moderna series) COVID-19 VACCINE (4 - Booster for Moderna series) [facility] Start: 03-14-2021 ADVANCE DIRECTIVE DISCUSSION ADVANCE DIRECTIVE DISCUSSION [facility] Start: 03-14-2021 DEPRESSION ASSESSMENT DEPRESSION ASS ESSMENT [facility] Start: 07-23-2009 Urine microalbumin profile DTaP,Tdap,Td Vaccine (1 - Tdap) [facility] Start: 2006 BONE DENSITY BONE DENSITY [facility] Start: 2006 Bone Density Screening Bone Density Screening [facility] Start: 2006 PNEUMOCOCCAL: 65+ (1 - PCV) PNEUMOCOCCAL: 65+ (1 - PCV) [facility] Start: 2001 RSV Vaccine (1 - 1-d ose 60+ series) RSV Vaccine (1 - 1-dose 60+ series) [facility] Start: 07-14-1991 SHINGRIX VACCINE (1 of 2) SHINGRIX VACCINE (1 of 2) [facility] Start: 1960 Urine microalbumin profile DTAP,TDAP,TD (1 - Tdap) [facility] End: 10-04-2022 EPIL EEG ROUTINE EPIL EEG ROUTINE NEUROLOGY Routine Recurrent episodes of unresponsiveness 1 Occurrences starting 10/04/2021 until 10/04/2022 [facility] Work Phone: Comment on above: 1 Occurrences starti ng 10/04/2021 until 10/04/2022 Patient Education [facility] Work Phone: Patient referral [facility] Immunizations Immunization Date Immunization Notes Care Provider Fa cili 12-15-2022 Influenza, Seasonal, Quadrivalent, Adjuvanted Generic Provider [facility] 01-25-2022 influenza, high dose seasonal, preservative-free Generic Provider [facility] 12-03-2020 influenza, high dose seasonal, preservative-free Generic Provider [facility] 12-24-2019 Seasonal trivalent influenza vaccine, adjuvanted, preservative free Generic Provider [facility] 02-05-2019 influenza, high dose seasonal, preservative-free Anu Juan Miguelt Other [facility] Other 02-10-2018 influenza, high dose seasonal, preservative-free Generic Provider [facility] 05-03-2017 influenza, injectabl e, quadrivalent, preservative free Generic Provider [facility] 12-25-2015 influenza, high dose seasonal, preservative-free Generic Provider [facility] 12-17-2014 influenza, seasonal, injectable, preservative free Generic Provider [facility] 10-02-2014 pneumococcal conjuga te vaccine, 13 valent Generic Provider [facility] 11-28-2013 influenza, high dose seasonal, preservative-free Generic Provider [facility] 10-01-2013 pneumococcal polysaccharide vaccine, 23 valent Generic Provider [facility] 01-13-2012 seasonal influenza, intradermal, preservative free Generic Provider [facility] 01-09-2010 seasonal influenza, intradermal, preservative free Generic Provider [facility] 07-22-2009 tetanus and diphther ia toxoids, adsorbed, preservative free, for adult use (2 Lf of tetanus toxoid and 2 Lf of diphtheria toxoid) Generic Provider [facility] 12-16-2008 seasonal influenza, intradermal, preservative free Generic Provider [facility] Payers Date Payer Category Payer Medicare [id number] 2021 Medicare [id number] 2021 Medicare [id number] 2021 Unknown ANTHEM BLUE CROS S AND BLUE SHIELD ANTHEM MEDIBLUE HMO [id number] 2021-[facility] [phone] [address] [place] [address] O [id number] .[id number] 2021 Unknown [id number] [id number] .[id number] 2016 Self-pay [id number] 1959 Medicare [id number] 1959 Unknown [id number] 1941 Unknown [id number] 2.16.840.1.161818.3.579.2.5 1941 Unknown [id number] .16.840.1.230597.3.579.2.5 1941 Unknown [id number] 2.16.840.1.353721.3.579.2.5 1941 Unknown [id number] 2.16.840.1.098465.3.579.2.5 1941 Unknown [id number] 2.16.840.1.215500.3.579.2.5 1941 Unknown [id number] 2.16.840.1.687816.3.579.2.5 93 1941 Unknown [id number] 2.16.840.1.771039.3.579.2.5 93 1941 Unknown [id number] 2.16.840.1.813765.3.579.2.5 93 1941 Unknown [id number] 2.16.840.1.669891.3.579.2.1 259 1941 Unknown [id number] 2.16.840.1.971552.3.579.2.1 259 1941 Unknown [id number] 2.16.840.1.424218.3.579.2.1 259 1941 Unknown [id number] 2.16.840.1.891905.3.579.2.1 259 1941 Unknown [id number] 2.16.840.1.435358.3.579.2.1 259 1941 Unknown [id number] 2.16.840.1.304343.3.579.2.1 259 1941 Unknown [id number] 2.16.840.1.559312.3.579.2.1 259 Private Health Insurance [facility] [id number] Unknown [id number] 2.16.840.1.418893.3.579.2.5 31 Unknown [id number] 2.16.840.1.983845.3.579.2.5 31 Unknown [id number] 2.16.840.1.318426.3.579.2.5 31 Unknown [id number] 2.16.840.1.514904.3.579.2.5 31 Unknown [id number] 2.16.840.1.180302.3.579.2.5 31 Unknown [id number] 2.16.840.1.087575.3.579.2.5 31 Unknown [id number] 2.16.840.1.756529.3.579.2.5 31 Social History Date Type Detail Facility Start: 07-31-2020 End: 02-12-2022 Tobacco smoking status NHIS Ex-smoker (finding) [facility] Start: 1940 Sex Assigned At Female [facility] Start: 01-20-2023 End: 06-22-2023 Sex Assigned At [facility] Start: 03-02-2018 End: 02-12-2022 Tobacco use and exposure Smokeless tobacco non-user [facility] Start: 09-21-2021 End: 02-12-2022 Exposure to SARS-CoV-2 (event) Not sure [facility] History of tobacco use Current smoker [facility] Start: 11-12-2021 End: 09-23-2022 Tobacco smoking status ORIS Never smoked tobacco (finding) [facility] Start: 01-20-2023 End: 06-22-2023 History of Social function [facility] Adult Depression Screening Assessment 4 [facility] Start: 11-26-2019 Gender identity Identifies as female gender (finding) [facility] Start: 11-26-2019 Sexual orientation Heterosexual (finding) [facility] Start: 03-28-2023 Alcohol intake Current drinker of alcohol (finding) [facility] How often to you hav e a drink containing alcohol? Never [facility] Start: 12-12-2022 Alcohol Comment caffeine: coffee 1-2 cups a day [facility] Start: 1940 Sex Assigned At Not on file [facility] Medical Equipment Procedure Code Equipment Code Equipment Origin al Text Equipment Identifier Dates USE DIRECTED BEFORE MEALS AND BEDTIME Start: 08-28-2018 End: 09-29-2021 Comment on above: USE DIRECTED BEFO RE MEALS AND BEDTIME Goals Date Patient Goal Desired Activity /State Functional Status Date Assessment Result Facility 11-25-2021 Functional status Patient is Pro gressing Toward Baseline [facility] Work Phone: 11-11-2021 Functional status Patient is Pro gressing Toward Baseline [facility] Work Phone: 11-04-2021 Functional status Patient at Baseline [facility] Work Phone: Mental Status Date Assessment Result Facility 11-25-2021 Cognitive function Cognitive Sta tus Patient at Baseline [facility] Work Phone: 11-11-2021 Cognitive function Cognitive Sta tus Patient Not at Baseline [facility] Work Phone: 11-04-2021 Cognitive function Cognitive Sta tus Patient at Baseline [facility] Work Phone: Clinical Notes 12-10-2020 to 06-23-2023 Patient InstructionsGloria Perez APRN.TOOL MAKER APPRENTICE - 06/23/2023 3:00 PM EDTAddendum Note - Anu Hillman RN - 02/11/2023 2:59 PM ESTTelephone Encounter - Anu Hillman RN - 02/11/2023 2:57 PM EST Note Date & Type Note Facility 06-23-2023 Note HNO ID: [id number] Author: GLORIA PEREZ APRN.TOOL MAKER APPRENTICE Service: ? Author Type: Nurse Practitioner Type: Progress Notes Filed: 06/23/2023 20:12 Note Text: [facility] - FOLLOW UP EVALUATION Honey Rabago DO [address] [facility] [address] [facility] [address] Dear Honey Rabago DO: I had the pleasure of seeing Ms. Barker for follow-up today. As you know she is a 82 year old right-handed female with a history of Parkinson's disease since 2013. She is seen with her son. Subjective Previous Plan-01/20/2023 Visit: Parkinson's disease: Continue current medication schedule but discuss with the doctor's assistant if you can take the Sinemet on [...] now less stre (more content not included)... [facility] 06-23-2023 Instructions Gloria Perez APRN.[facility] - 06/23/2023 3:54 PM EDT It was a pleasure to see you today. We addressed the following diagnoses: Parkinson's disease without dyskinesia, with fluctuating manifestations (hcc) My recommendations are as follows: 06/23/2023 Visit: Parkinson's disease: Change the timing of the Sinemet to that noted below. Please let me know if you change your mind about physical therapy and if the liquid chlorine operator approves Depression and anxiety: Continue Venlafaxine (Effexor) [...] or you can send a message through [employer]. You can also now schedule and select appointments through [employer]. Gloria Perez APRN.TOOL MAKER APPRENTICE From the Parkinson's Foundation: [email or web address] What Can [...] make phlegm worse. documented in this encounter [facility] 06-23-2023 History of Presen t illness Narrative [facility] - FOLLOW UP EVALUATION Honey Rabago DO [address] [facility] [address] Dear Honey Rabago DO: I had the pleasure of seeing Ms. Barker for follow-up today. As you know she is a 82 year old right-handed female with a history of Parkinson's disease since 2013. She is seen with her son. Subjective Previous Plan-01/20/2023 Visit: Parkinson's disease: Continue current medication schedule but discuss with the doctor's assistant if you can take the Sinemet on [...] and down day by day thing. Anxiety: RGEGORY-7 Total Score: 0 usually representing no significant [...] 01/18/2023: [facility] [address] [facility] [place] [facility] MEDICATION, NON-DATABASE 750 mg two times [...] mind about physical therapy and if the liquid chlorine operator approves Depression and anxiety: Continue Venlafaxine (Effexor) [...] Mirtazapine 7.5mg 1 Level of service : 21996 (40-54 min). Time spent 53 min on the day of service, which included preparing to see the patient, [id number] patient care, completing clinical documentation, obtaining and/or reviewing separately obtained history, performing a medically appropriate examination, and counseling and educating the patient/family/caregiver. Gloria Perez APRN.TOOL MAKER APPRENTICE documented in this encounter [facility] 02-11-2023 Note HNO ID: [id number] Author: Nupur Main PA-C Service: ? Author Type: Physician Manager Nuclear Type: Progress Notes Filed: 02/11/2023 4:48 PM Note Text: Reviewed chart - OK to refill; e-scripted to pharmacy as requested... [facility] 02-11-2023 Miscellaneous Notes Addended by: ANU HILLMAN on: 02/11/2023 02:59 PM Modules accepted: Orders Order pended to preferred pharmacy Last OV 01/20/23 Next OV 06/23/23 E- [id number] [place] [address] - [address] [phone] [id number] carbidopa-levodopa (SINEMET 25-100) 25-100 mg per tablet Patient son called in today in regards to medication and wanting to switch pharmacy, they were told the best way to do this would be to request a new prescription. They would like it sent to [facility] Thank you! documented in this encounter [facility] 01-20-2023 Note HNO ID: [id number] Author: Gloria Perez APRN.TOOL MAKER APPRENTICE Service: ? Author Type: Nurse Practitioner Type: Progress Notes Filed: 01/24/2023 12:36 PM Note Text: [facility] - FOLLOW UP EVALUATION Honey Rabago DO [address] [place] [address] Dear Honey Rabago DO: I had the [...] Use vaginally one (more content not included)... [facility] 01-20-2023 Instructions Gloria Perez APRN.CNP - 01/20/2023 3:46 PM EST It was a pleasure to see you today. We addressed the following diagnoses: Parkinson's disease without dyskinesia, with fluctuating manifestations (primary encounter diagnosis) Depression with anxiety My recommendations are as follows: 01/20/2023 Visit: Parkinson's disease: Continue current medication schedule but discuss with the doctor's assistant if you can take the Sinemet on [...] or you can send a message through [employer]. You can also now schedule and select appointments through [employer]. Gloria Perez APRN.ELDON documented in this encounter [facility] 01-20-2023 History of Presen t illness Narrative [facility] - FOLLOW UP EVALUATION Honey Rabago DO [address] [place] [address] Dear Honye Rabago DO: I had the pleasure of [...] 01/18/2023: Pt takes 2 tabs daily per [facility] med list MEDICATION, NON-DATABASE 750 mg two [...] she is going to discuss with the doctor's assistant, see if she can take her Parkinson's [...] current medication schedule but discuss with the doctor's assistant if you can take the Sinemet on [...] Mirtazapine 7.5mg 1 Level of service : 87319 (40-54 min). Time spent 47 min on the day of service, which included preparing to see the patient, [id number] patient care, completing clinical documentation, obtaining and/or reviewing separately obtained history, performing a medically appropriate examination, counseling and educating the patient/family/caregiver, and ordering medications, tests, or procedures. Gloria Perez APRN.TOOL MAKER APPRENTICE documented in this encounter [facility] 07-08-2022 Note HNO ID: [id number] Author: Gloria Perez APRN.TOOL MAKER APPRENTICE Service: ? Author Type: Nurse Practitioner Type: Progress Notes Filed: 07/11/2022 5:23 PM Note Text: [facility] - FOLLOW UP EVALUATION Honey Rabago DO, DO [address] [facility] [address] [facility] [address] Dear Honey Rabago DO, DO: I had [...] She likes the staff. The director and creative services director have to chip into cook since the health information managers cook and this has been good from [...] lot online or on TV, $15/month on [employer] tickets (in past) Palliative Concerns: Caregiver burden: [...] Rash Rosuvastatin Calcium (more content not included)... [facility] 07-08-2022 Instructions Gloria Perez APRN.TOOL MAKER APPRENTICE - 07/08/2022 3:56 PM EDT It was [...] or you can send a message through [employer]. You can also now schedule and select appointments through [employer]. Glorai Perez APRN.[facility]ON documented in this encounter [facility] 07-08-2022 History of Presen t illness Narrative [facility] - FOLLOW UP EVALUATION Honey Rabago DO, DO [address] [facility] [address] Dear Honey Rabago DO, DO: I had [...] She likes the staff. The director and creative services director have to chip into cook since the [employer] and this has been good from a [...] lot online or on TV, $15/month on [employer] tickets (in past) Palliative Concerns: Caregiver burden: [...] or around: 01/07/23 Level of service : 88786 (40-54 min). Time spent 47 min on the day of service, which included preparing to see the patient, [id number] patient care, completing clinical documentation, obtaining and/or reviewing separately obtained history, performing a medically appropriate examination, counseling and educating the patient/family/caregiver, and ordering medications, tests, or procedures. Gloria Perez APRN.ELDON documented in this encounter [facility] 04-13-2022 Miscellaneous Notes Order pended Last OV [...] patient. Belen Tim documented in this encounter [facility] 02-15-2022 Miscellaneous Notes I tried calling, Gina, the healthcare social worker in her primary care provider's office. I left a message requesting a call back. AYO Chicas documented in this encounter [facility] 12-15-2021 Evaluation note Encounter Date Diagnosis Assessment [...] Please call patient's son Jose David at [phone] with results. Spoke to Jose David and discussed above. Spoke with KORTNEY Albert ([phone] ) and given above instructions. Patient may get home testing for INRs set-up, will inform clinic if home testing begins. Home Health Order: Draw PT/INR on 01-04-22 Seen by Justin Nicolas PharmD [facility] Other 09-20-2022 Evaluation note* Encounter Date Diagnosis [...] discharged on 11/25 from inpatient rehab at [facility] with above plan and therapeutic INRs. Follow up in 2 weeks. Please call patient's son Jose David at [phone] with results. Spoke to Jose David and discussed above. Spoke with PRERNA Albert ([phone]) and given above instructions. Patient may get home testing for INRs set-up, will inform clinic if home testing begins. Home Health Order: Draw PT/INR on 12-14-21 Seen by Justin Nicolas PharmD [facility] Other 09-14-2022 Discharge summary Author Alcides Moya [facility] November 25, 2021 12:57pm Note Date/Time November 25, 2021 8:50am [facility] [address] [place] [address] Discharge Summary Signed Patient: Alton Barker MR#: [id number] : 1940 Acct:[id number] Age/Sex: 81 / F Adm Date: 2 Loc: Room: 5K9024-[address]: Alcides Moya MD Copies to: [...] 04:43 11/25/21 04:43 Narrative: General: cooperative, comfortable HENPR Head: normal to inspection Eyes General: appearance [...] Plan Discharge Plan Patient Disposition: Home Health [facility] Activity: Ambulate as Tolerated Diet: Regular Additional [...] PT/INR (dx:Z79.01) on Tuesday11/30/21, with results to [facility], who will continue to manage your Coumadin dosing, as they were prior to your hospitalization. -Coumadin dosing: Take 2mg every day EXCEPT Tuesday and . Take 1mg on Tuesday and . Your Home Health agency is [facility] ( ). They will usually [...] signed by Alcides Moya MD> 11/25/[address] [facility] Work Phone: 1(411) 859-944409-12-2022 Progress note Author Alcides Moya [facility] November 23, 2021 3:01pm Note Date/Time November 23, 2021 1:36pm [facility] [address] [place] [address] Physiatry(Rehab) Progress Note Signed Patient: Alton Barker MR#: [id number] : 1940 Acct:[id number] Age/Sex: 81 / F Adm Date: 2 Loc: Room: 0U3202-8 Type: ADM IN Attending Dr: Alcides Moya MD Copies to: ~ <Elham Mendoza APRN - Last Filed: 11/23/21 14:05> Date of Service: 11/23/2021 Subjective <Elham Mendoza APRN - Last Filed: 11/23/21 14:05> Subjective Narrative: Ms. Barker is a 81 year old female With history of Parkinson's disease, followed at the [facility], admitted to the rehabilitation unit [...] it finally took effect, it was already manager hematology. I reminded that she can take her [...] mg 11/11/21 14:29 Bisacodyl 10 Mg Supp.Rect MI 11/11/22 14:28 DAILY PRN Constipation Carbidopa/Levodopa 1.5 [...] 14:29 Docusate Enema 283 Mg/5 Ml Enema MI 11/11/22 14:28 DAILY PRN Constipation Lactulose 30 [...] Allied health note review, nursing note review, splunk consultant note review, discussion with nursing and case management, and more than 50% of my time was spent on counseling and coordination of care, time spent 18 minutes Patient was personally seen by me, Dr. Moya, on the day of encounter, reviewed the history and the relevant portions of the chart, including current orders, allied health and splunk consultant notes, labs/imaging and performed day elements [...] signed by Alcides Moya MD> 11/23/21 1501 [facility] Work Phone: 1([phone]) 543-330009-12-2022 Progress note Author Alcides Moya [facility] November 23, 2021 2:39pm Note Date/Time November 20, 2021 1:19pm [facility] [address] [place] [address] Physiatry(Rehab) Progress Note Signed Patient: Alton Barker MR#: [id number] : 1940 Acct:[id number] Age/Sex: 81 / F Adm Date: 2 Loc: Room: [address] [place] [address] Type: ADM IN Attending Dr: Alcides Moya MD Copies to: ~ <Elham Mendoza APRN - Last Filed: 11/20/21 13:21> Date of Service: 11/20/2021 Subjective <Elham Mendoza APRN - Last Filed: 11/20/21 13:21> Subjective Narrative: Ms. Barker is a 81 year old female With history of Parkinson's disease, followed at the [facility], admitted to the rehabilitation unit [...] mg 11/11/21 14:29 Bisacodyl 10 Mg Supp.Rect MI 11/11/22 14:28 DAILY PRN Constipation Carbidopa/Levodopa 1.5 [...] 14:29 Docusate Enema 283 Mg/5 Ml Enema MI 11/11/22 14:28 DAILY PRN Constipation Lactulose 30 [...] Allied health note review, nursing note review, splunk consultant note review, discussion with nursing and case management, and more than 50% of my time was spent on counseling and coordination of care, time spent 16 minutes Patient was personally seen by me, Dr. Moya, on the day of encounter, reviewed the history and the relevant portions of the chart, including current orders, allied health and splunk consultant notes, labs/imaging and performed day elements of exam and I formulated the plan of care and facilitated the medical decision making and confirmed the nurse practitioner note, as above Documented By: Elham Mendoza APRN 11/20/21 1 310 Signed By: <Electronically signed by HEIDI Mendoza> 11/20/21 1321 <Electronically signed by Alcides Moya MD> 11/23/[address] [facility] Work Phone: 1(275) 624-314709-08-2022 Progress note Author Rosa Maria Odell [facility] November 19, 2021 5:37pm Note Date/Time November 19, 2021 4:57pm [facility] [address] [place] [address] Hospitalist Progress Note Signed Patient: Alton Barker MR#: [id number] : 1940 Acct:[id number] Age/Sex: 81 / F Adm Date: 2 Loc: Room: 6Y6243-0 Type: ADM IN Attending Dr: Alcides Moya [...] mg 11/11/21 14:29 Bisacodyl 10 Mg Supp.Rect MI 11/11/22 14:28 DAILY PRN Constipation Carbidopa/Levodopa 1.5 [...] 14:29 Docusate Enema 283 Mg/5 Ml Enema MI 11/11/22 14:28 DAILY PRN Constipation Lactulose 30 [...] by Rosa Maria Odell MD> 11/19/21 1737 [facility] Work Phone: 1(117) 403-612409-07-2022 Progress note Author Alcides Moya [facility] November 18, 2021 12:40pm Note Date/Time November 17, 2021 10:56am [facility] [address] [place] [address] Physiatry(Rehab) Progress Note Signed Patient: Alton Barker MR#: [id number] : 1940 Acct:[id number] Age/Sex: 81 / F Adm Date: 2 Loc: Room: 6F5882-7 Type: ADM IN Attending Dr: Alcides Moya [...] mg 11/11/21 14:29 Bisacodyl 10 Mg Supp.Rect MI 11/11/22 14:28 DAILY PRN Constipation Carbidopa/Levodopa 1.5 [...] 14:29 Docusate Enema 283 Mg/5 Ml Enema MI 11/11/22 14:28 DAILY PRN Constipation Lactulose 30 [...] Allied health note review, nursing note review, splunk consultant note review, discussion with nursing and case management, and more than 50% of my time was spent on counseling and coordination of care, time spent 23 minutes Patient was personally seen by me, Dr. Moya, on the day of encounter, reviewed the history and the relevant portions of the chart, including current orders, allied health and splunk consultant notes, labs/imaging and performed day elements [...] signed by Alcides Moya MD> 11/18/[address] [facility] Work Phone: 1(437) 996-156309-03-2022 Progress note Author Alcides Moya [facility] November 14, 2021 8:45am Note Date/Time November 13, 2021 3:25pm [facility] [address] [place] [address] Physiatry(Rehab) Progress Note Signed Patient: Alton Barker MR#: [id number] : 1940 Acct:[id number] Age/Sex: 81 / F Adm Date: 2 Loc: Room: 3D9235-7 Type: ADM IN Attending Dr: Alcides Moya MD Copies to: ~ Date of Service: 11/13/2021 Subjective Subjective Narrative: Ms. Barker is a 81 year old female With history of Parkinson's disease, followed at the [facility], admitted to the rehabilitation unit [...] mg 11/11/21 14:29 Bisacodyl 10 Mg Supp.Rect MI 11/11/22 14:28 DAILY PRN Constipation Carbidopa/Levodopa 1.5 tab 11/11/21 22:00 11/13/21 13:19 Carbidopa/Levodopa 25-100 Mg 1 Tab Tablet PO 11/11/22 21:59 1.5 tab TID KAYLIN Administration Cefdinir 300 mg 11/11/21 21:00 11/13/21 08:19 Cefdinir 300 Mg Capsule PO 11/13/21 20:59 300 mg BID KAYLIN Administration Cyanocobalamin 1,000 mcg 11/13/21 09:00 11/13/21 08:19 Cyanocobalamin 1,000 Mcg Tablet PO 11/13/22 08:59 1,000 mcg DAILY KALYIN Administration Docusate Sodium 100 mg 11/11/21 14:29 Docusate 100 Mg Capsule PO 11/11/22 14:28 BID PRN Constipation Docusate Sodium 283 mg 11/11/21 14:29 Docusate Enema 283 Mg/5 Ml Enema MI 11/11/22 14:28 DAILY PRN Constipation Lactulose 30 [...] Acute (10) Chronic anticoagulation: Code(s): Z79.01 - medical terminologist (current) use of anticoagulants Status: Acute (11) Urinary tract infection: Code(s): N39.0 - Urinary tract infection, site not specified Status: Acute (12) Back pain: Code(s): M54.9 - Dorsalgia, unspecified Status: Acute Plan 81-year-old female with history of Parkinson's disease, follows at the [facility], admitted to the rehabilitation unit with [...] and self-care. Discharge planning:Insurance denial overturned via [id number]. 2 weeks approved. Plan for discharge home November 25 Plan: I completed a substantive portion of this encounter, the medical decision makingportion of this note in its entirety, including Allied health note review, nursing note review, splunk consultant note review, discussion with nursing and case management, and more than 50% of my time was spent on counseling and coordination of care, time spent 26minutes Patient was personally seen by me, Dr. Moya, on the day of encounter, reviewed the history and the relevant portions of the chart, including current orders, allied health and splunk consultant notes, labs/imaging and performed day elements of exam and I formulated the plan of care and facilitated the medical decision making and confirmed the nurse practitioner note, as above Documented By: Alcides Moya MD 11/13/21 1525 Signed By: <Electronically signed by Alcides Moya MD> 11/14/21 0845 [facility] Work Phone: 1(996) 496-489409-01-2022 Consult note Author Justice De Oliveira [facility] November 12, 2021 5:09pm Note Date/Time November 12, 2021 3:21pm [facility] [address] [place] [address] Hospitalist Consult Note Signed Patient: lAton Barker MR#: [id number] : 1940 Acct:[id number] Age/Sex: 81 / F Adm Date: 2 Loc: Room: 1Q0041-3 Type: ADM IN Attending Dr: Alcides Moya MD Copies to: MD Justice Pate DO Lynn A Stackhouse, ANP-BC Hoeny Rabago DO~ HPI DATE OF CONSULTATION: 11/12/21 [...] incontinence. Patient with underlying Parkinson's follows with [facility] neurology and movement disorder clinicians [...] negative unless noted below or in HPI [facility] Attestation Statement: The following information [...] mg-vit E 90 mg-zinc 40 mg-copper 1 xl-fzqgey-wrmbdy capsule (PreserVision AREDS-2) 1 tab PO BID [...] mg 11/11/21 14:29 Bisacodyl 10 Mg Supp.Rect MI 11/11/22 14:28 DAILY PRN Constipation Carbidopa/Levodopa 1.5 [...] 14:29 Docusate Enema 283 Mg/5 Ml Enema MI 11/11/22 14:28 DAILY PRN Constipation Lactulose 30 [...] % (Auto) 45.9, Lymph % (Auto) 39.7, [place] % (Auto) 10.1, Eos % (Auto) 3.8, Baso % (Auto) 0.5, Neut # (Auto) 2.3, Lymph # (Auto) 2.0, [place] # (Auto) 0.5, Eos # (Auto) 0.2, [...] signed by Justice De Oliveira DO> 11/12/21 7687 [facility] Work Phone: 1(781) 139-210008-31-2022 History and physical note Author Alcides Moya [facility] November 11, 2021 6:55pm Note Date/Time November 11, 2021 1: 26pm [facility] [address] [place] [address] Physiatry (Rehab) H&P Signed Patient: Alton Barker MR#: [id number] : 1940 Acct:[id number] Age/Sex: 81 / F Adm Date: 2 Loc: Room: [address] [place] [address] Type: ADM IN Attending Dr: Alcides Moya MD Copies to: MD Honey Pate DO~ Date of Service: 11/11/2021 HPI The patient was seen and examined on: 11/11/21 Etiologic Diagnosis/Impairment Group: 08.9 History of Present Illness: Ms. Barker is a 81 year old female With history of Parkinson's disease, followed at the [facility], admitted to the rehabilitation unit [...] Lives at home with her son and hclhvjgr-en-ajs. Chronic conditions are otherwise stable with current [...] mg-vit E 90 mg-zinc 40 mg-copper 1 fv-gmzjqi-gpkjvd capsule (PreserVision AREDS-2) 1 tab PO BID [...] 14 days Expected Discharge Destination: Home Rehabilitation [facility]: 08.9 Primary Diagnosis: L1 compression fracture [...] 24 hour daily monitoring and intervention from [employer] as well as other consulting physicians including internal medicine as well as 24 hour daily senior asp net developer nursing - for medical safe / optimal [...] Acute (10) Chronic anticoagulation: Code(s): Z79.01 - assisted (current) use of anticoagulants Status: Acute (11) Urinary tract infection: Code(s): N39.0 - Urinary tract infection, site not specified Status: Acute (12) Back pain: Code(s): M54.9 - Dorsalgia, unspecified Status: Acute Plan 81-year-old female with history of Parkinson's disease, follows at the [facility], admitted to the rehabilitation unit [...] and self-care. Discharge planning:Insurance denial overturned via [id number]. Plan for discharge home in 1 to 2 weeks. Plan: I completed a substantive portion of this encounter, the medical decision making portion of this note in its entirety, including Allied health note review, nursing note review, splunk consultant note review, discussion with nursing and case management, and more than 50% of my time was spent on counseling and coordination of care, time spent 65 minutes Patient was personally seen by me, Dr. Moya, on the day of encounter, reviewed the history and the relevant portions of the chart, including current orders, allied health and splunk consultant notes, labs/imaging and performed day elements of exam and I formulated the plan of care and facilitated the medical decision making and confirmed the nurse practitioner note, as above Documented By: Alcides Moya MD 11/11/211853 Signed By: <Electronically signed by Alcides Moya MD> 11/11/211854 [facility] Work Phone: 1([phone]) 890-267108-25-2022 Miscellaneous Notes* Telephone Encounter - Gloria Perez [...] to in-health rehab. Currently she is at [facility] in [place] - Room 3009 Bed. 2. * Telephone Encounter - Lyly Pedersen - 11/05/2021 1:04 PM EDT ----- Message from Gloria Perez APRN.TOOL MAKER APPRENTICE sent at 11/03/2021 8:01 AM EDT ----- [...] know. Thank you, Gloria documented in [facility]22 History and physical note Author Enrrique Mota [facility] November 04, 2021 8:55pm Note Date/Time November 04, 2021 6: 26pm [facility] [address] [place] [address] Hospitalist H&P Signed Patient: Alton Barker MR#: [id number] : 1940 Acct:[id number] Age/Sex: 81 / F Adm Date: 2 Loc: Room: [address] [place] [address] Type: ADM IN Attending Dr: Enrrique Mota [...] mg-vit E 90 mg-zinc 40 mg-copper 1 nf-tbbvbj-btylqk capsule (PreserVision AREDS-2) 1 tab PO BID [...] % (Auto) 20.3 % (.) 11/04/21 16:40 [place] % (Auto) 9.7 % (.) 11/04/21 16:40 Eos % (Auto) 1.7 % (.) 11/04/21 16:40 Baso % (Auto) 0.6 % (.) 11/04/21 16:40 Neut # (Auto) 5.3 x10E3/uL (1.8-7.7) 11/04/21 16:40 Lymph # (Auto) 1.6 x10E3/uL (1.00-4.8) 11/04/21 16:40 [place] # (Auto) 0.8 x10E3/uL (0.0-0.8) 11/04/21 16:40 [...] <Electronically signed by Enrrique Mota MD> 11/04/212054 [facility] Work Phone: 1([phone]) 634-658808-11-2022 Evaluation note* Encounter Date Diagnosis Assessment Notes [...] 2 weeks. Seen by Justin Nicolas PharmD [employer] Other 07-21-2022 Instructions* Patient Instructions* Gloria Perez [...] or you can send a message through [employer]. You can also now schedule and select appointments through [employer]. Gloria Perez APRN.ELDON documented in this encounterReg[facility]-21-2022 History of Present illness Narrative* Gloria Perez APRN.CNP - 10/01/2021 12:13 PM EDT [facility] - FOLLOW UP EVALUATION Honey Rabago, DO, DO [address] [place] [address] [facility] [address] I had the pleasure of seeing Ms. [...] loss is noticeable but LTM is good. [place] Cognitive Assessment (MoCA): 29 (02/03/2021 10:50 AM) [...] is now living with her son and phmhclff-bq-odu. She has not been taking her medication [...] 1.5 1.5 Effexor Level of service : 20657 (40-54 min). Time spent 49 (12:14pm-1:03pm) min on the day of service, which included preparing to see the patient, hvaz-dc-npys patient care, completing clinical documentation, obtaining and/or reviewing separately obtained history, performing a medically appropriate examination, counseling and educating the patient/family/caregiver and ordering medications, tests, or procedures. Gloria Perez APRN.TOOL MAKER APPRENTICE documented in this encounterRegency Hospital [facility]07-19-2022 Evaluation note* Encounter Date Diagnosis Assessment Notes [...] 3 weeks. Seen by Juliana Ozuna RN [employer] Other 06-28-2022 NoteHISTORY: Bone density screening. COMPARISON: [...] and signed by Delgado Moya on 09/08/[address] [place], [place] 7736306-15-2022 Evaluation note* Encounter Date Diagnosis Assessment Notes [...] significant other. Seen by Juliana Ozuna RN [place] [employer] Other 05-25-2022 Evaluation note* Encounter Date Diagnosis [...] INSTRUCTIONS: Please take as instructed above. Notify [facility]tico[facility] [phone] option 5 for the following: -Call immediately [...] person tells you to adjust your warfarin. [employer] Other 05-09-2022 Evaluation note* Encounter Date Diagnosis [...] significant other. Seen by Justin Nicolas PharmD [employer] Other 03-30-2022 Evaluation note* Encounter Date Diagnosis [...] Seen by Anu Alva RP/Anuradha Case LPN [facility] [employer] Other 03-15-2022 Evaluation note* Encounter Date Diagnosis [...] voiced understanding. Seen by Anu Alva michelle [place] [employer] Other 01-12-2022 Evaluation note* Encounter Date Diagnosis [...] 3 weeks. Seen by Justin Nicolas PharmD [facility] [employer] Other 12-15-2021 Evaluation note* Encounter Date Diagnosis [...] 4 weeks. Seen by Juliana Ozuna RN [employer] Other 11-17-2021 Evaluation note* Encounter Date Diagnosis [...] 4 weeks. Seen by Juliana Ozuna RN [employer] Other 09-29-2021 Evaluation note* Encounter Date Diagnosis [...] 4 weeks. Seen by Justin Nicolas PharmD [employer] Other Consult note Author Jairo Benson [facility] November 05, 2021 3:10pm Note Date/Time November 05, 2021 3: 10pm [facility] [address] [place] [address] Psychiatry Consult Note Signed Patient: Alton Barker MR#: [id number] : 1940 Acct:[id number] Age/Sex: 81 / F Adm Date: 2 Loc: Room: [address] [place] [address] Type : ADM INOo Attending Dr: Enrrique [...] mg-vit E 90 mg-zinc 40 mg-copper 1 hl-ecktfh-imuxkt capsule (PreserVision AREDS-2) 1 tab PO BID [...] Cloudy A Urine pH 5.5 Ur Specific [place] 1.029 Urine Protein 30 H Urine Glucose [...] signed by Jairo Benson MD> 11/05/21 1510 [facility] Work Phone: Consult note Author Oswaldo Almonte [facility] November 06, 2021 11:33am Note Date/Time November 06, 2021 11 :33am [facility] [address] [place] [address] Neurosurgery Consult Note Signed Patient: Alton Barker MR#: [id number] : 1940 Acct:[id number] Age/Sex: 81 / F Adm Date: 2 Loc: Room: [address] [place] [address] Type: ADM INOo Attending Dr: Enrrique Mota [...] mg-vit E 90 mg-zinc 40 mg-copper 1 ey-hrsxow-wwoxvm capsule (PreserVision AREDS-2) 1 tab PO BID [...] Cloudy A, Urine pH 5.5, Ur Specific [place] 1.029, Urine Protein 30 H, Urine Glucose [...] % (Auto) 67.7, Lymph % (Auto) 20.3, [place] % (Auto) 9.7, Eos % (Auto) 1.7, Baso % (Auto) 0.6, Neut # (Auto) 5.3, Lymph # (Auto) 1.6, [place] # (Auto) 0.8, Eos # (Auto) 0.1, [...] <Electronically signed by MD Oswaldo Almonte> 11/06/[address] [facility] Work Phone: Discharge summary Author Gaye Claire [facility] November 11, 2021 5:21pm Note Date/Time November 10, 2021 11 :33am [facility] [address] [place] [address] Discharge Summary Signed Patient: Alton Barker MR#: [id number] : 1940 Acct:[id number] Age/Sex: 81 / F Adm Date: 2 Loc: Room: [address] [place] [address]: Gaye Claire MD Copies to: Tonya Suh, [facility]- MD Honey Collado,DO~ Providers Date of Admission: [...] movement disorderspecialist Gloria Lal nurse practitioner at [facility] routinely. She was continued on [...] Discharge Plan Discharge Plan Patient Disposition: Rehab [facility] Activity: No Activity Restriction Diet: Regular Additional [...] signed by Gaye Claire MD> 11/11/21 1721 [facility] Work Phone: evaluation noteNo assessment information available [facility] noteNo InformationNort [employer] Other evaluation note* Diagnosis Recurrent episodes of unresponsiveness- Primary Parkinson's disease (HCC) Paralysis agitans Depression with anxiety Dysthymic disorder Fatigue, unspecified type Excessive daytime sleepiness documented in this encounter [facility]* Diagnosis Onset Date Resolution Status Back [...] disease acute Urinary tract infection acut e [facility] Work Phone: Evaluation note* Diagnosis [...] cute Parkinsons disease acute [facility] note* Diagnosis Parkinson's disease (HCC) Paralysis agitans documented in this encounter [facility]* Diagnosis Parkinson's disease (HCC)- Primary Paralysis agitans Depression with anxiety Dysthymic disorder documented in this encounter [facility]* Diagnosis Parkinson's disease without dyskinesia, with fluctuating manifestations- Primary Depression with anxiety Dysthymic disorder documented in this encounter [facility]* Diagnosis Parkinson's disease Paralysis agitans documented in this encounter [facility]* Diagnosis Depression with anxiety- Primary Dysthymic disorder Parkinson's disease without dyskinesia, with fluctuating manifestations (HCC) Sialorrhea Disturbance of salivary secretion documented in this encounter [facility] general Narrative - Reported* Type Description Date Medical History diabetes mellitus Medical History coronary artery disease Medical History Hypothyroidism Medical History Esophageal reflux Medical History depression Medical History essential tremor Surgical History tonsillectomy Surgical History cholecystectomy Surgical History appendectomy Surgical History hemorrhoidectomy Surgical History colonoscopy Surgical History heart catheterization Hospitalization History see above [facility] [employer] Other History general Narrative - [facility] [employer] Other Progress note Author Enrrique Mota [facility] November 06, 2021 7:31am Note Date/Time November 05, 2021 3: 01pm [facility] [address] [place] [address] Hospitalist Progress Note Signed Patient: Alton Barker MR#: [id number] : 1940 Acct:[id number] Age/Sex: 81 / F Adm Date: 2 Loc: Room: [address] [place] [address] Type: ADM INOo Attending Dr: Enrrique Mota MD Copies to: ~ Date of Service: 11/05/2021 Subjective Subjective Narrative: Patient seen and examined, sitting up in chair at time of exam. She is pleasant, mildly confused. She is oriented to self, knows she is at [facility]. Initially states year is 1920, then [...] where she lives with her son and fvkihpij-dh-vep Impaired mobility and ADLs Parkinson's disease ? Patient follows with neurology, Dr. Lal, and movement disorder specialist,Gloria Lal CNP, at [facility] ? Continue Sinemet ? PT/OT [...] <Electronically signed by Enrrique Mota MD> 11/06/[address] [facility] Work Phone: Progress note Author Enrrique Mota [facility] November 07, 2021 4:52pm Note Date/Time November 06, 2021 11 :01am [facility] [address] [place] [address] Hospitalist Progress Note Signed Patient: Alton Barker MR#: [id number] : 1940 Acct:[id number] Age/Sex: 81 / F Adm Date: 2 Loc: Room: [address] [place] [address] Type: ADM INOo Attending Dr: Enrrique Mota MD Copies to: ~ Date of Service: 11/06/2021 Subjective Subjective Narrative: Patient is seen and examined. She is sitting up in bed at time of exam. When asked how she is feeling, she states not well, I am confused . She has howeveroriented to self, knows she is at [facility], and was able to tell me events surrounding her admission. She showed me a paper with [place] listed on it, and indicated that [...] where she lives with her son and spwqswfc-kn-xzw Impaired mobility and ADLs Parkinson's disease ? Patient follows with neurology, Dr. Lal, and movement disorder specialist,Gloria Lal, ELDON, at [facility] ? Continue Sinemet ? PT/OT [...] <Electronically signed by Enrrique Mota MD> 11/07/21 1659 [facility] Work Phone: Progress note Author Enrrique Mota [facility] November 07, 2021 4:47pm Note Date/Time November 07, 2021 11 :18am [facility] [address] [place] [address] Hospitalist Progress Note Signed Patient: Alton Barker MR#: [id number] : 1940 Acct:[id number] Age/Sex: 81 / F Adm Date: 2 Loc: Room: [address] [place] [address] Type: ADM INOo Attending Dr: Enrrique Mota [...] where she lives with her son and wugjdjlh-qz-vgp Impaired mobility and ADLs Parkinson's disease ? Patient follows with neurology, Dr. Lal, and movement disorder specialist,Gloria Lal, ELDON, at [facility] ? Continue Sinemet ? PT/OT [...] <Electronically signed by Enrrique Mota MD> 11/07/[address] [facility] Work Phone: Progress note Author Enrrique Mota [facility] November 08, 2021 5:13pm Note Date/Time November 08, 2021 10 :47am [facility] [address] [place] [address] Hospitalist Progress Note Signed Patient: Alton Barker MR#: [id number] : 1940 Acct:[id number] Age/Sex: 81 / F Adm Date: 2 Loc: Room: [address] [place] [address] Type: ADM INOo Attending Dr: Enrrique Mota [...] where she lives with her son and [id number] Impaired mobility and ADLs Parkinson's disease ? Patient follows with neurology, Dr. Lal, and movement disorder specialist,Gloria Lal, ELDON, at [facility] ? Continue Sinemet ? PT/OT [...] signed by Enrrique Mota MD> 11/08/[address] [facility] Work Phone: Progress note Author Gaye Claire [facility] November 10, 2021 4:37pm Note Date/Time November 09, 2021 1: 11pm [facility] [address] [place] [address] Hospitalist Progress Note Signed Patient: Alton Barker MR#: [id number] : 1940 Acct:[id number] Age/Sex: 81 / F Adm Date: 2 Loc: Room: 1C3527-7 Type: ADM INOo Attending Dr: Gaye Claire [...] movement disorder specialist, Gloria Lal CNP at [facility] ?Continue Sinemet UTI Ecoli ?ceftriaxone initiated 11/06, change to Cefdinir at [place] for 7 day total course last dose [...] signed by Gaye Claire MD> 11/10/21 1637 [facility] Work Phone: Progress note Author Gaye Claire [facility] November 11, 2021 5:21pm Note Date/Time November 10, 2021 5: 36pm [facility] [address] [place] [address] Hospitalist Progress Note Signed Patient: Alton Barker MR#: [id number] : 1940 Acct:[id number] Age/Sex: 81 / F Adm Date: 2 Loc: Room: [address] [place] [address] Type: DIS INOo Attending Dr: Gaye Claire [...] movement disorder specialist, Gloria Lal CNP at [facility] ?Continue Sinemet UTI Ecoli ?ceftriaxone [...] signed by Gaye Claire MD> 11/11/21 1721 [facility] Work Phone: Reason for referral (narrative)* Outpatient Procedure (Routine) - Pending Review Specialty Diagnoses / Procedures Referred By Contact Referred To Contact [facility]UROLOG[facility] Diagnoses Recurrent episodes of unresponsiveness Procedures EPIL EEG ROUTINE ELECTROENCEPHALOGRAM REC COMA/SLEEP ONLY Gloria Perez APRN.CNP [address] [place] [address] [place] [id number] [place] [id number] Referral ID Status Reason Start Date Expiration Date Visits Requested Visits Authorized [id number] Pending Review Auto-Generat ed Referral 10/04/2021 10/04/2022 1 1 [facility] Summary Purpose Family History No Family History [...] (HCC) Procedures PROVIDER ORDERED FOLLOW UP OFFICE/OUTPATIENT [facility] 60-74 MINUTES Gloria Perez APRN.TOOL MAKER APPRENTICE [address] [place] [address] Referral ID Status Reason Start Date Expiration Date Visits Requested Visits Authorized [id number] Pending Review PCP Requested Referral 3 07/08/2023 1 1 Additional Source Comments INFORMATION SOURCE (unrecogn ized section and content) DATE CREATED AUTHOR 11/02/2017 [employer] DATE CREATED AUTHOR AUTHOR'S ORGANIZ ATION 09/09/2021 [facility] d[facility] Specialist DATE CREATED AUTHOR AUTHOR'S ORGANIZ ATION 06/01/2022 [facility] DATE CREATED AUTHOR AUTHOR'S ORGANIZ ATION 07/23/2022 [facility] DATE CREATED AUTHOR AUTHOR'S ORGANIZ ATION 06/25/2023 [facility] DATE CREATED AUTHOR AUTHOR'S ORGANIZ ATION 08/20/2023 [facility] dical Specialists EPIC Goals (unrecognized section [...] disease Procedures PROVIDER ORDERED FOLLOW UP OFFICE/OUTPATIENT [facility] 60-74 MINUTES Gloria Perez, HEIDI.TOOL MAKER APPRENTICE [address] [place] [address] Referral ID Status Reason Start Date Expiration Date Visits Requested Visits Authorized [id number] Pending Review PCP Requested Referral 3 07/08/2023 [...] or prosecute any alcohol or drug abuse patient.[facility] the event this information is protected by the Federal Confidentiality of Alcohol and Drug Abuse Patient Records regulations: The Federal rules restrict any use of the information to criminally investigate or prosecute any alcohol or drug abuse patient.[facility] the event this information is protected by the Federal Confidentiality of Alcohol and Drug Abuse Patient Records regulations: The Federal rules restrict any use of the information to criminally investigate or prosecute any alcohol or drug abuse patient.[facility] the event this information is protected by the Federal Confidentiality of Alcohol and Drug Abuse Patient Records regulations: The Federal rules restrict any use of the information to criminally investigate or prosecute any alcohol or drug abuse patient.[facility] the event this information is protected by the Federal Confidentiality of Alcohol and Drug Abuse Patient Records regulations: The Federal rules restrict any use of the information to criminally investigate or prosecute any alcohol or drug abuse patient.[facility] the event this information is protected by the Federal Confidentiality of Alcohol and Drug Abuse Patient Records regulations: The Federal rules restrict any use of the information to criminally investigate or prosecute any alcohol or drug abuse patient.[facility] the event this information is protected by the Federal Confidentiality of Alcohol and Drug Abuse Patient Records regulations: The Federal rules restrict any use of the information to criminally investigate or prosecute any alcohol or drug abuse patient.[facility] the event this information is protected by the Federal Confidentiality of Alcohol and Drug Abuse Patient Records regulations: The Federal rules restrict any use of the information to criminally investigate or prosecute any alcohol or drug abuse patient.[facility] the event this information is protected by the Federal Confidentiality of Alcohol and Drug Abuse Patient Records regulations: The Federal rules restrict any use of the information to criminally investigate or prosecute any alcohol or drug abuse patient.[facility] the event this information is protected by the Federal Confidentiality of Alcohol and Drug Abuse Patient Records regulations: The Federal rules restrict any use of the information to criminally investigate or prosecute any alcohol or drug abuse patient.[facility] Care Teams (unrecognized sec tion and content) Team Status: Active Member Role Status Dates Honey Rabago DO Primary Care Provider Active Team Status: Inactive Member Role Status Dates Honey Rabago , DO Primary Care Provider, Attending Paula mock Active Team Status: Inactive Member Role Status Dates Honey Rabago , Primary Care Provider Active Alcidse Moya MD Admit Provider, Attending Provider A [...] MD Other Provider Active Faustina Barr , LUBRICATION SUPERVISOR-C Other Provider Active Valente Lauren MD Other [...] Team Status: Inactive Member Role Status Dates Hnoey Carrascolloydaura , DO Primary Care Provider Active Marvin Peter , DO Emergency Provider Active Enrrique Mota MD Admit Provider Active Jairo Benson MD Other Provider Active Oswaldo Almonet MD Other Provider Active Gaye Claire MD Attending Provider Active Insurance Business Analyst Relationship Specialty Start Date End Date Honey Rabago, DO [address] [place] [address] PCP - General 02/16/05 Insurance Business Analyst Relationship Specialty Start Date End Date Honey Rabago, DO [address] [place] [address] PCP - General 02/16/05 Insurance Business Analyst Relationship Specialty Start Date End Date Honey Rabago, DO [address] [place] [address] PCP - General 02/16/05 Team Status: Active [...] MD Other Provider Active Chery Coronado , BIAS BINDING FOLDER Other Provider Active José Miguel Tellez , DO Other Provider Active George Chan MD Other Provider Active Justice De Oliveira , DO Other Provider Active Enrrique Mota MD Other Provider Active Rosa Maria Odlel MD Other Provider Active Tonya Suh , ANP- Other Provider Active Juan Wallace MD Other Provider Active Jerson Walker MD Other Provider Active Gaye Claire MD Other Provider Active Queta Mclain MD Other Provider Active Rd Blackmon MD Other Provider Active Anibal Gallagher MD Other Provider Active Damion Thapa MD Other Provider Active Faustina Barr , LUBRICATION SUPERVISOR-C Other Provider Active Valente Lauren MD Other [...] Primary Care Provider, Attending Paula mock Active Insurance Business Analyst Relationship Specialty Start Date End Date Honey Rabago, DO [address] [place] [address] PCP - General 02/16/05 Insurance Business Analyst Relationship Specialty Start Date End Date Honey Rabago, DO [address] [place] [address] PCP - General 02/16/05 Insurance Business Analyst Relationship Specialty Start Date End Date Honey Rabago, DO [address] [place] [address] PCP - General 02/16/05 Insurance Business Analyst Relationship Specialty Start Date End Date Honey Rabago, DO [address] [place] [address] PCP - General 02/16/05 Insurance Business Analyst Relationship Specialty Start Date End Date Honey Rabago, DO [address] [place] [address] PCP - General 02/16/05 Insurance Business Analyst Relationship Specialty Start Date End Date Honey Rabago DO [address] [place] [address] PCP - General 02/16/05 Insurance Business Analyst Relationship Specialty Start Date End Date Honey Rabago, PCP - General Internal Medicine 07/28/22 Insurance Business Analyst Relationship Specialty Start Date End Date Honey Rabago DO [address] [place] [address] PCP - General 02/16/05 FOR RECORDS PERTAINING [...] BE BASED ON THE PRIMARY CLINICAL RECORDS. [facility] [employer] [facility]. provides no warranty or guarantee of the accuracy or completeness of information in this document.
--- NOTE | 2023-10-25 17:00 | XR_ITS ---
The [address] [address] Patient Name: ALTON SALMERON MRN: [id number] date: 1940 Sex: F Assigned Patient Location: ER Current Patient Location: ER Accession/Order Number: [id number] Exam Date: 10/25/2023 16:53 Report Date: 10/25/2023 17:50 At the request of: XIN SPEARS Procedure: XR knee RT 3V EXAM: XR knee RT 3V HISTORY: pain, injury COMPARISON: None. TECHNIQUE: 3 views. FINDINGS: Moderate narrowing of the medial compartment with marginal spurring of the medial, lateral and patellofemoral compartments consistent with osteoarthritis. No evidence of fracture, dislocation or significant joint effusion. XR/XR knee RT 3V IMPRESSION: 1. No evidence of fracture, dislocation or significant joint effusion. 2. Mild/moderate tricompartmental osteoarthritis. Electronically authenticated by: NEO PARRA Date: 10/25/2023 17:50
[2023-10-25 17:08] LABS: Basophils Percent Auto 0.3 % (0.2-2.0); Eosinophils Absolute Auto 0.2 10^3/uL (0.0-0.7); Hematocrit 37.7 % (36.0-48.0); Hemoglobin 11.5 g/dL (12.0-16.0); Immature Granulocytes Abs Auto 0.01 10^3/uL (0.00-0.03); Immature Granulocytes Pct Auto 0.2 % (0.0-0.5); Lymphocytes Absolute Auto 2.2 10^3/uL (1.2-3.8); Lymphocytes Percent Auto 38.7 % (20.5-60.0); Mean Corpuscular HGB Conc 30.5 g/dL (29.9-35.2); Mean Corpuscular Hemoglobin 29.1 pg (26.7-34.0); Mean Corpuscular Volume 95.4 fL (81.0-99.0); Mean Platelet Volume 10.4 fL (9.5-13.5); Monocytes Absolute Auto 0.5 10^3/uL (0.3-0.8); Monocytes Percent Auto 8.5 % (1.7-12.0); Neutrophils Absolute Auto 2.8 10^3/uL (1.4-6.5); Neutrophils Percent Auto 49.3 % (43.0-75.0); Platelet Count 175 10^3/uL (150-450); Red Blood Count 3.95 10^6/uL (4.20-5.40); Red Cell Distribution Width 15.2 % (11.0-15.0); White Blood Count 5.8 10^3/uL (4.0-11.0)
--- NOTE | 2023-10-25 17:08 | CT_ITS ---
The [address] [address] Patient Name: ALTON SALMERON MRN: [id number] date: 1940 Sex: F Assigned Patient Location: ER Current Patient Location: ER Accession/Order Number: [id number] Exam Date: 10/25/2023 16:53 Report Date: 10/25/2023 17:58 At the request of: XIN SPEARS Procedure: CT cervical spine wo con EXAM: CT cervical spine wo con HISTORY: trauma COMPARISON: None. TECHNIQUE: Unenhanced helical acquisition obtained through the cervical spine with axial, coronal and sagittal MPR reconstructions. FINDINGS: Posterior disc protrusion at C6-C7 which results in deformity upon the ventral aspect of the thecal sac and mild-moderate spinal canal stenosis. There is also spinal canal stenosis at C7-T1 secondary to posterior disc-osteophyte complex. Moderate to severe multilevel bilateral facet arthropathy, left greater than right. No significant foraminal narrowing. Mild image degradation at the cervicothoracic junction secondary to motion artifact. Diffuse demineralization. CT/CT cervical spine wo con IMPRESSION: 1. No evidence of fracture or dislocation. 2. Underlying spinal canal stenosis at C6-C7 and C7-T1. 3. Moderate-severe multilevel bilateral facet arthropathy, left greater than right. 4. Diffuse demineralization. Electronically authenticated by: NEO PARRA Date: 10/25/2023 17:58
--- NOTE | 2023-10-25 17:08 | CT_ITS ---
The [address] [address] Patient Name: ALTON SALMERON MRN: [id number] date: 1940 Sex: F Assigned Patient Location: ER Current Patient Location: ER Accession/Order Number: [id number] Exam Date: 10/25/2023 16:53 Report Date: 10/25/2023 17:50 At the request of: XIN SPEARS Procedure: CT head/brain wo con EXAM: CT head/brain wo con HISTORY: head injury on coumadin COMPARISON: None. TECHNIQUE: Unenhanced transaxial tomographic sections obtained from the vertex through the posterior fossa. FINDINGS: No midline shift, mass effect or intracranial hemorrhage. Mild bilateral chronic microvascular ischemic change. The mastoid air cells and visualized paranasal sinuses are clear. No evidence of calvarial fracture. CT/CT head/brain wo con IMPRESSION: 1. No acute intracranial process. 2. Mild bilateral chronic microvascular ischemic change. Electronically authenticated by: NEO PARRA Date: 10/25/2023 17:50
[2023-10-25 17:09] LABS: Anion Gap 7.4; BUN Creatinine Ratio 16.2; Calcium 8.8 mg/dL (8.5-10.1); Carbon Dioxide 33.6 mmol/L (21.0-32.0); Chloride 99 mmol/L (98-107); Estimated GFR (African America >60 (>=60); Estimated GFR (Non-African Ame 50 (>=60); Glucose 231 mg/dL (74-106); Sodium 136 mmol/L (136-145)
[2023-10-25 17:24] LABS: Prothrombin Time 38.2 sec (9.0-11.6)
[2023-10-25 17:28] LABS: INR 4.15; Partial Thromboplastin Time 44.4 sec (22.3-36.2)
[2023-10-25 17:51] VITALS: BP 157/70; PULSE 88; O2SAT 97
== END 2023-10-25 18:44 | disposition home or self-care (01) ==
PROVIDERS: Physician Assistant; Emergency Provider Emergency Medicine; PCP Internal Medicine
DX: S00.03XA Contusion of scalp, initial encounter (principal); S80.01XA Contusion of right knee, initial encounter; R79.1 Abnormal coagulation profile; Z86.718 Personal history of other venous thrombosis and embolism; Z79.01 Long term (current) use of anticoagulants; W01.0XXA Fall on same level from slipping, tripping and stumbling without subsequent striking against object, initial encounter
CPT/HCPCS: 36415; 70450; 72125; 73562; 80048; 85025; 85610; 85730; 99285

== ENCOUNTER 2023-10-30 21:39 | Emergency (ER) | payer MEDICARE, SELFPAY ==
[2023-10-30] VITALS (16 sets, daily range): BP systolic 147–159; BP diastolic 69–83; PULSE 79–91; TEMP 37; O2SAT 90–100; BMI 39.9
--- OUTSIDE RECORDS SUMMARY | 2023-10-30 21:48 | XMS_ITS | CCD ---
Author Organization [facility] Care Team Providers Care Despatch Clerk Name Role Phone Honey Rabago Primary Care Provider Honey Rabago Attending Provider Anu Alva Unavailable Honey Rabago DO Primary Care Provider Honey Rabago DO Primary Care Provider Oswaldo Almonte Unavailable DO Honey Rabago Primary Care Provider DO Sumanth Lowe Emergency Provider DO Holger Dorado Emergency Provider DO Honey Rabago Attending Provider [phone] DO Marvin Peter Emergency Provider MD Enrrique Mota Admit Provider MD Jairo Benson Other Provider MD Oswaldo Almonte Other Provider MD Gaye Claire Attending Provider MD Alcides Moya Admit Provider MD Alcides Moya Attending Provider [phone] KORTNEY Mehta Other Provider Unavailable KORTNEY Hannah [...] Provider MD Damion Thapa Other Provider Cortney, WEATHERSTRIP MACHINE OPERATOR-C Faustina Quiroga Other Provider MD Valente Lauren [...] Admit Provider MD Jairo Benson Other Provider [phone] MD Oswaldo Almonte Other Provider MD Gaye Claire Attending Provider MD Alcides Moya Admit Provider MD Alcides Moya Attending Provider [phone] KORTNEY Mehta Other Provider Unavailable KORTNEY Hannah Other Provider Unavailable KORTNEY Dutton Other Provider Unavailable KORTNEY Garrett Other Provider Unavailable KORTNEY Smith Other Provider Unavailable KORTNEY Ayon Other Provider Unavailable MD Familia Villatoro Other Provider MD Misha Ziegler Other Provider Dials, FOUNDATION STAGE TEACHER Chery M Other Provider [phone] DO José Miguel Tellez Other Provider MD George Chan Other Provider DO Justice De Oliveira Other Provider [phone] MD Enrrique Mota Other Provider MD Rosa Maria Odell Other Provider Angeli ANP- Tonya Other Provider MD Juan Wallace Other Provider [phone] MD Jerson Walker Other Provider MD Gaye Claire Other Provider MD Queta Mclain Other Provider MD dR Blackmon Other Provider MD Anibal Gallagher Other [...] Benson Consulting Unavailable Gaye Claire Attending Unavailable Svetlana Enrrique Admitting Unavailable Oswaldo Almonte Consulting Unavailable Alcides Moya Admitting Unavailable Alcides Moya Attending Unavailable Honey Rabago Primary Care Unavailable Maggy Mehta Consulting Unavailable Sasha Hannah Consulting Unavailable Nadia Dutton Consulting Unavailable Anuradha Garrett Consulting Unavailable Karen Smith Consulting Unavailable Erika Ayon Consulting Unavailable Familia Villatoro Consulting Unavailable Toney, Misah K Consulting Unavailable Dialchyna Chery M Consulting Unavailable José Miguel Tellez Consulting Unavailable George Chan Consulting Unavailable Justice De Oliveira Consulting UnavailEnrrique Her Consulting Unavailable Semaskiene, Rosa Maria Consulting Unavailable Tonya Suh Consulting Unavailable Juan Wallace Consulting Unavailable Jerson Walker Consulting Unavailable Gaye Claire Consulting Unavailable Queta Mclain Consulting Unavailable Rd Blackmon Consulting Unavailable Anibal Gallagher Consulting Unavailable Damion Thapa Consulting Unavailable Faustina Barr Consulting Unavailable DoameValente howe Consulting Unavailab Kareem Estrella Consulting Unavailable FilemonItalia delgado Consulting Unavailable Lety Ronan Consulting Unavailable Shantel Nayak Consulting Unavailable Frank Mooney, Kaylie Consulting Unavailab Michael Hearn Consulting Unavailable MiniSony solis Consulting Unavailable ObikaAmanda Consulting Unavailable Lázaro rPatt Consulting Unavailable Daromar, Corona Meyer Consulting Unavailable Lee Ann Terry Consulting Unavailable Holger Dorado Admitting Unavailable DanilochakHoney Primary Care Unavailable Holger Dorado Attending Unavailable Sumanth Lowe Admitting Unavailable Vaschak, Honey Primary Care Unavailable Sumanth Lowe Attending Unavailable VaschakHoney Primary Care Unavailable Vaschak, Honey Attending Unavailable [...] DR MÉNDEZ Consulting Unavailable Vaschak DO, Honey Quiroga Primary Care Provider HONEY RABAGO Attending Unavailable HONEY RABAGO Referring Unavailable HAMILTONMAC Referring Unavailable URBANO HUTTON Attending Unavailable HONEY RABAGO Attending Unavailable HONEY RABAGO Referring Unavailable VALORIE SULLIVAN Attending Unavailable URBANO HUTTON Attending Unavailable URBANO HUTTON Attending Unavailable GLORIA PEREZ Attending Unavailable HONEY RABAGO Primary Care Unavailab GLORIA Villeda Attending Unavailable HONEY RABAGO Primary Care Unavailab HONEY Bullock Primary Care Unavailab GLORIA Villeda Attending Unavailable GLORIA PEREZ Referring Unavailable Allergies Allergy Classification Reported Allergen(s) Allergy Type Date of Onset Reaction(s) Facility Aminoketones (1 source) buPROPion Drug Allergy 08-01-19 21 Hallucinating [facility] Latex (1 source) Latex Substance Allergy 08-01-19 Rash [facility] Opioid Agonists (1 source) HYDROcodone Drug Allergy 08-01-19 21 Unknown Reaction [facility] (20 sources) Acetaminophen / HYDROcodone; Translations: [Vicodin] Drug Allergy Unknown [facility] Repository (20 sources) buPROPion; Translations: [BUPROPION] Drug Allergy 01-19-20 17 Mental Status Change, Other [facility] Work Phone: (20 sources) Latex Propensity to adverse reactions 11-05-19 22 Unknown, [facility] (12 sources) Acetaminophen / HYDROcodone; Translations: [HYDROCODONE-ACET AMINOPHEN] Drug Allergy 04-13-19 17 Mental Status Change, Other [facility] (11 sources) Adhesive Tape; Translations: [ADHESIVE TAPE (ROSINS)] Allergy to substance 01-13-20 [facility] Work Phone: (12 sources) Latex; Translations: [LATEX, NATURAL RUBBER] Drug Allergy 04-13-19 17 [facility] (11 sources) rosuvastatin; Translations: [ROSUVASTATIN CALCIUM] Drug Allergy 01-13-20 21 [facility] Work Phone: (7 sources) HYDROcodone; Translations: [hydrocodone] Drug Allergy 01-13-20 21 [facility] (1 source) buPROPion Drug Allergy 11-05-19 [facility] Repository (1 source) Latex Drug allergy (disorder) 11-05-19 [facility] Repository (1 source) natural latex rubber Drug allergy (disorder) [facility] Repository (1 source) Rosuvastatin calcium Allergy [...] 01/18/2023: Pt takes 2 tabs daily per [facility] med list 0 Active take 1 tablet by rc th every six hours as needed Acetaminophen 500 MG 1 tablet as needed Orally every 6 hrs Active Comment on above: Take 500 mg by mouth every 8 hours as needed. 01/18/2023: Pt takes 2 tabs daily per [facility] med list Aspir-81 (16 sources) Aspir-81 Active [...] Blood Gluc Sensor (FreeStyle Vivian 2 Sensor) [facility] (1 source) Start: 02-14-2023 Continuous Blood Gluc Sensor (FreeStyle Vivian 2 Sensor) [facility] Indications: Type 2 diabetes mellitus with other specified complication, unspecified whether alf insulin use (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 0 Active take 1 tablet by rc th every twenty-four hours metoprolol succinate XL (Toprol-XL) 25 MG 24 hr tablet Take by mouth Do not crush or chew. 0 Active take 2 tablets by mo [facility] every twelve hours Metoprolol Tartrate 37.5 MG 2 tablets Orally Twice a day increased for Essential Tremors Active take 1.5 tablets by mouth every twelve hours Metoprolol Tartrate 50 MG 1.5 tablets Orally Twice a day increased for Essential Tremors Active take 1 tablet by rc twice daily in the evening Metoprolol Tartrate [...] November 04, 2021 5:03pm polyethylene glycol 3350 89007 mg powder for oral solution (17 sources) [...] 1 02/11/2023 Active Start: 02-11-2023 warfarin (Coum angeilka) 4 MG tablet Indications: History of DVT [...] Vitamin C Start: 02-22-2017 End: 07-10-2017 Vit N-G-Ivuklt-Zinc-Lute in (Preservision Lutein) 226 mg-200 unit -5 [...] daily 4 2 November 11, 2021 12:00am Start: 11-11-2021 take [...] ea. docusate sodium 50 mg / sennosides, jail 8.6 mg oral tablet (5 sources) Start: [...] therapy completed) take 1 capsule by mo [facility] every twenty-four hours Gabapentin 300 [...] Active 7.5 MG PO Daily at bedtime November 10, 2021 12:00am Start: 11-10-2021 take [...] 150 mg by mouth every morning. Vit C,L-Oj-Noxwv-Lutei n-Zeaxan (Preservision Areds-2) 562-735-95-1 zp-gqgi-tr-mg Capsule (6 sources) Start: 01-18-2017 End: 07-10-2017 take 1 tablet by mouth once daily at bedtime Vit C,G-Mo-Ruqon-Lutein-Ze axan (Preservision Areds-2) 419-895-43-1 lb-inek-yv-mg Capsule Discontinued 1 TAB PO every day in the morning and at bedtime January 18, 2017 7:43am July 10, 2017 6:45pm Start: 01-18-2017 End: 07-10-2017 take 1 tablet by mouth once daily at bedtime Vit C,R-Gk-Mzriz-Lutein-Zeaxan (Preservision Areds-2) 354-729-23-1 cy-ytcv-xz-mg Capsule Discontinued 1 TAB PO every day in the morning and at bedtime January 18, 2017 12:00am July 10, 2017 5:45pm Start: 01-18-2017 End: 07-10-2017 take 1 tablet by mouth once daily at bedtime Vit C,G-Ez-Fwevg-Lutein-Zeaxan (Preservision Areds-2) 409-175-07-1 de-tnql-xn-mg Capsule Discontinued 1 TAB PO every day in the morning and at bedtime January 18, 2017 1:00am July 10, 2017 6:45pm Vit C,X-Nv-Tcisy-Lutein-Zeax an (Preservision Areds-2) 250-90-40-1 mg Capsule (5 sources) Start: 11-04-2021 End: 11-25-2021 Vit C,N-Ya-Yxtzm-Lutein-Zeax an (Preservision Areds-2) 250-90-40-1 mg Capsule Discontinued 1 TAB PO Twice daily November 03, 2021 11:00pm November 25, 2021 3:32pm Start: 11-04-2021 End: 11-25-2021 Vit C,W-Vs-Uphny-Lutein-Zeax an (Preservision Areds-2) 250-90-40-1 mg Capsule Discontinued 1 TAB PO Twice daily November 04, 2021 12:00am November 25, 2021 4:32pm Start: 11-04-2021 Vit C,E-Zn-Enlisted Aircrew/Aerial Observer/Gunner zv-Uvxynh-Uehcbh (Preservision Areds-2) 250-90-40-1 mg Capsule Active 1 [...] once daily. Take 2 tablets by mo [facility] once daily. 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 Barker for follow-up today. As you know she is a 82 year old right-handed female with a history of Parkinson's disease since 2013. She is seen with her son. Subjective Previous Plan-01/20/2023 Visit: Parkinson's disease: Continue current medication schedule but discuss with the dice maker if you can take the Sinemet on [...] No No (more content not included)... Normal [facility] ALL HEMOGLOBINon 04-27-2023 Hemoglobin (Bld) [Mass/Vol] 11.7 g/dL Low 12.0 - 16.0 g/dL [facility] Interpretation and review of laboratory results Abnormal [facility] XR CHEST 2 VIEWSon 4 XR [...] Moya, DO Normal Not Available Bebe 02-11-2023 [facility] Telephone (ANIA) -- ALTON BARKER ([id number]) 1940 F Date Time Provider Department 02/11/23 GLORIA PEREZ During your visit today, we recorded the following information about you: Mary Anne Beatty 02/11/2023 1:54 PM Signed [id number] [place] [address] - [address] [facility] [phone] carbidopa-levodopa (SINEMET 25-100) 25-100 mg per tablet Patient son called in today in regards to medication and wanting to switch pharmacy, they were told the best way to do this would be to request a new prescription. They would like it sent to [facility] Thank you! Anu Hillman RN 02/11/2023 [...] Date Reviewed: 01/20/2023 Reviewed by: Gloria Perez APRN.SILK SCREEN OPERATOR - Fully Assessed Reason for Visit: [...] 01/18/2023: Pt takes 2 tabs daily per [facility] med list - MEDICATION, NON-DATABASE 750 mg [...] BY MOUTH TWICE DAILY WITH FOOD - Zenogen VIVIAN 2 SENSOR kit apply 1 SENSOR [...] Of Date 02/11/2023 Noted Resolved OSTEOARTHROS KNEE [[id number]] 06/29/2012 Parkinson's disease without dyskinesia, with fl*03/02/2018 Obesity, Class I, BMI 30-34.9 [E66.9] 07/08/2022 Depression with anxiety [F41.8] 01/20/2023 Encounter Status:Closed by MARY ANNE BEATTY on 02/11/23 [facility] CNOVon 01-20-2023 CNOV Office Visit (NRMDN) -- ALTON BARKER ([id number]) 1940 F Date Time Provider Department 01/20/23 3:00 PM GLORIA PEREZSDCindy During your visit today, we recorded the following information about you: Height 1.676 m Gloria Perez APRN.[facility] 01/24/2023 12:36 PM Signed [facility] - FOLLOW UP EVALUATION Honey Rabago DO [address] [facility] [id number] Dear Honey Rabago DO: I had the [...] Change halluc (more content not included)... Normal [facility] CULTURE URINEon 07-16-2022 CULTURE URINE Isolate 1 [...] Trimethoprim/Sulfamethoxaz ole <=20 S F Normal [facility] Comment on above: Performed By: #### U RCX #### [facility] [address] [place] [address] Dr. Joyce Strauss UA (CLEAN/CATCH) THORACIC MEDICINE SPECIALIST/MICRO I F IND.on 2022 Bilirubin Ql (U) Negative Normal NEGATIVE [facility] Comment on above: Performed By: #### U MICRO, UACSIND #### [facility] [address] [place] [address] Dr. Joyce Strauss Clarity (U) CLEAR Normal CLEAR [facility] Comment on above: Performed By: #### U MICRO, UACSIND #### [facility] [address] [place] [address] Dr. Joyce Strauss Color (U) LT. YELLOW Normal YELLOW [facility] Comment on above: Performed By: #### U MICRO, UACSIND #### [facility] [address] [place] [address] Dr. Joyce Strauss Glucose Ql (U) Negative Normal NEGATIVE [facility] Comment on above: Performed By: #### U MICRO, UACSIND #### [facility] [address] [address] [address] Joyce Strauss Hemoglobin Ql (U) Negative Normal NEGATIVE [facility] Comment on above: Performed By: #### U MICRO, UACSIND #### [facility] [address] [address] [address] Joyce Strauss Ketones Ql (U) Negative Normal NEGATIVE [facility] Comment on above: Performed By: #### U MICRO, UACSIND #### [facility] [address] [address] [address] Joyce Strauss LEUKOCYTES LARGE Abnormal NEGATIVE [facility] Comment on above: Performed By: #### U MICRO, UACSIND #### [facility] [address] [place] [address] Dr. Joyce Strauss Nitrite Ql (U) Positive Abnormal NEGATIVE [facility] Comment on above: Performed By: #### U MICRO, UACSIND #### [facility] [address] [address] [address] Joyce Strauss pH (U) 5.5 [pH] Normal 5-9 [facility] Comment on above: Performed By: #### U MICRO, UACSIND #### [facility] [address] [place] [address] Dr. Joyce Strauss SPEC GRAVITY 1.010 Normal 1.005-<=1. 025 [facility] Comment on above: Performed By: #### U MICRO, UACSIND #### [facility] [address] [address] [address] Joyce Strauss UA PROTEIN TRACE Normal NEGATIVE/ TRACE [facility] Comment on above: Performed By: #### U MICRO, UACSIND #### [facility] [address] [place] [address] Dr. Joyce Strauss UR MICRO IND INDICATED Normal [facility] Comment on above: Performed By: #### U MICRO, UACSIND #### [facility] [address] [address] [address] Joyce Strauss Urobilinogen Qn (U) 0.2 {Cam'U}/dL Normal 0.2 - 1. 0 [facility] Comment on above: Performed By: #### U MICRO, UACSIND #### [facility] [address] [address] [address] Joyce Strauss URINE MICROSCOPIC ONLYon BACTERIA LARGE Abnormal NONE SEEN [facility] Comment on above: Performed By: #### U MICRO, UACSIND #### [facility] [address] [address] [address] Joyce Strauss Bacteria identified Cx Nom (U) INDICATED Normal [facility] Comment on above: Performed By: #### U MICRO, UACSIND #### [facility] [address] [address] [address] Joyce Strauss CA OX CRYSTALS RARE Normal [facility] Comment on above: Performed By: #### U MICRO, UACSIND #### [facility] [address] [address] [address] Joyce Strauss CAST NONE SEEN Normal NONE SEEN [facility] Comment on above: Performed By: #### U MICRO, UACSIND #### [facility] [address] [address] [address] Joyce Strauss Crystals LM Nom (Urine sed) SEEN Abnormal NONE SEEN [facility] Comment on above: Performed By: #### U MICRO, UACSIND #### [facility] [address] [address] [address] Joyce Strauss Epithelial cells LM Ql (Urine sed) FEW Abnormal NONE SEEN /RARE [facility] Comment on above: Performed By: #### U MICRO, UACSIND #### [facility] [address] [address] [address] Joyce Strauss MUCOUS NONE SEEN Normal NONE SEEN [facility] Comment on above: Performed By: #### U MICRO, UACSIND #### [facility] [address] [address] [address] Joyce Strauss RBC NONE SEEN Abnormal 0-2 [facility] Comment on above: Performed By: #### U MICRO, UACSIND #### [facility] [address] [place] [address] Dr. Joyce Strauss WBC (U) [#/Vol] /uL Abnormal NONE SEEN [facility] Comment on above: Performed By: #### U MICRO, UACSIND #### [facility] [address] [place] [address] Dr. Joyce Strauss CULTURE URINEon 06-03-2022 CULTURE URINE Isolate 1 [...] Trimethoprim/Sulfamethoxaz ole <=20 S F Normal [facility] Comment on above: Performed By: #### U RCX #### [facility] [address] [place] [address] Dr. Joyce Strauss UA RANDOMon 06-01-2022 Bilirubin Ql (U) Negative Normal NEGATIVE [facility] Comment on above: Performed By: #### U A #### [facility] [address] [place] [address] Dr. Joyce Strauss Clarity (U) CLOUDY Abnormal CLEAR [facility] Comment on above: Performed By: #### U A #### [facility] [address] [place] [address] Dr. Joyce Strauss Color (U) YELLOW Normal YELLOW [facility] Comment on above: Performed By: #### U A #### [facility] [address] [place] [address] Dr. Joyce Strauss Glucose Ql (U) Negative Normal NEGATIVE [facility] Comment on above: Performed By: #### U A #### [facility] [address] [place] [address] Dr. Joyce Strauss Hemoglobin Ql (U) MODERATE Abnormal NEGATIVE The [facility] Comment on above: Performed By: #### U A #### [facility] [address] [place] [address] Dr. Joyce Strauss Ketones Ql (U) Negative Normal NEGATIVE [facility] Comment on above: Performed By: #### U A #### [facility] [address] [place] [address] Dr. Joyce Strauss LEUKOCYTES LARGE Abnormal NEGATIVE [facility] Comment on above: Performed By: #### U A #### [facility] [address] [place] [address] Dr. Joyce Strauss Nitrite Ql (U) Positive Abnormal NEGATIVE [facility] Comment on above: Performed By: #### U A #### [facility] [address] [place] [address] Dr. Joyce Strauss pH (U) 6.0 [pH] Normal 5-9 [facility] Comment on above: Performed By: #### U A #### [facility] [address] [place] [address] Dr. Joyce Strauss SPEC GRAVITY 1.010 Normal 1.005-<=1. 025 [facility] Comment on above: Performed By: #### U A #### [facility] [address] [place] [address] Dr. Joyce Strauss UA PROTEIN 100 mg/dl Abnormal NEGATIVE/ TRACE [facility] Comment on above: Performed By: #### U A #### [facility] [address] [place] [address] Dr. Joyce Strauss Urobilinogen Qn (U) 1.0 {Cam'U}/dL Normal 0.2 - 1. 0 [facility] Comment on above: Performed By: #### U A #### [facility] [address] [place] [address] Dr. Joyce Strauss Urine culture routineOrdered By: Honey Rabago on 01-01-2022 Bacteria identified Cx Nom (U) Escherichia coli [facility] Automated erythrocytes count in urine sediment (number/area)Ordered By: Honey Rabago on 12-30-2021 RBC Auto (Urine sed) [#/Area] 3-4 [HPF] 0-4 [facility] Automated leukocytes count i n urine sediment (number/area)Ordered By: Honey Rabago on 12-30-2021 WBC Auto (Urine sed) [#/Area] 50-100 [HPF] 0-4 [facility] Automated urine color determ inationOrdered By: Honey Rabago on 12-30-2021 Color (U) Yellow Normal Yellow [facility] Comment on above: Order Comment: Name Collection Type:: Clean-Voided Midstream Performed By: #### G LULS #### Point of Care testing , Bilirubin Test strip Ql (U)O rdered By: Honey Rabago on 12-30-2021 Bilirubin Ql (U) Negative Negative [facility] Dipstick and Microscopicon 1 Appearance (U) Cloudy Critically abnormal Clear [facility] Comment on above: Order Comment: Name Collection Type:: Clean-Voided Midstream Performed By: #### G LULS #### Point of Care testing , Bacteria,Urine 1+ High None Seen [facility] Comment on above: Order Comment: Name Collection Type:: Clean-Voided Midstream Performed By: #### G LULS #### Point of Care testing , Bilirubin,Urine Negative Normal Negative [facility] Comment on above: Order Comment: Name Collection Type:: Clean-Voided Midstream Performed By: #### G LULS #### Point of Care testing , Glucose Ql (U) Normal Normal Normal [facility] Comment on above: Order Comment: Name Collection Type:: Clean-Voided Midstream Performed By: #### G LULS #### Point of Care testing , Hyaline Casts,Urine 0-8 Normal 0-8 [facility] Comment on above: Order Comment: Name Collection Type:: Clean-Voided Midstream Result Comment: PERF ORMED BY: [facility] [address] [place] [address] PATHOLOGIST [employer]IP GERMAN M.D. Performed By: #### G LULS #### Point of Care testing , Ketones Ql (U) Negative Normal Negative [facility] Comment on above: Order Comment: Name Collection Type:: Clean-Voided Midstream Performed By: #### G LULS #### Point of Care testing , Leukocyte esterase Test strip Ql (U) 3+ High Negative [facility] Comment on above: Order Comment: Name Collection Type:: Clean-Voided Midstream Performed By: #### G LULS #### Point of Care testing , Nitrite,Urine Positive High Negative [facility] Comment on above: Order Comment: Name Collection Type:: Clean-Voided Midstream Performed By: #### G LULS #### Point of Care testing , Occult Blood,Urine Negative Normal Negative [facility] Comment on above: Order Comment: Name Collection Type:: Clean-Voided Midstream Result Comment: PERF ORMED BY: [facility] [address] [place] [address] PATHOLOGIST [employer] PROFESSIONAL FLIP GERMAN M.D. Performed By: #### G LULS #### Point of Care testing , Othe Crystals,Urine None Seen Normal [facility] Comment on above: Order Comment: Name Collection Type:: Clean-Voided Midstream Performed By: #### G LULS #### Point of Care testing , Protein,Urine Trace High Negative [facility] Comment on above: Order Comment: Name Collection Type:: Clean-Voided Midstream Performed By: #### G LULS #### Point of Care testing , RBC,Urine 3-4 Normal 0-4 [facility] Comment on above: Order Comment: Name Collection Type:: Clean-Voided Midstream Performed By: #### G LULS #### Point of Care testing , Specificy [place],Urine 1.017 Normal 1.001-1.03 0 [facility] Comment on above: Order Comment: Name Collection Type:: Clean-Voided Midstream Performed By: #### G LULS #### Point of Care testing , Squamous Epithelial Cell,Urine 1-2 Normal 0-2 [facility] Comment on above: Order Comment: Name Collection Type:: Clean-Voided Midstream Performed By: #### G LULS #### Point of Care testing , Urobilinogen,Urine Normal Normal Normal [facility] Comment on above: Order Comment: Name Collection Type:: Clean-Voided Midstream Performed By: #### G LULS #### Point of Care testing , WBC,Urine 50-100 High 0-4 [facility] Comment on above: Order Comment: Name Collection Type:: Clean-Voided Midstream Performed By: #### G LULS #### Point of Care testing , Ketones Auto test strip (U) [Mass/Vol]Ordered By: Honey Rabago on 12-30-2021 Ketones (U) [Mass/Vol] Negative Negative [facility] Laboratory - UrinalysisOrder ed By: Honey Rabago on 12-30-2021 Hyaline casts LM Ql (Urine sed) 0-8 [LPF] 0-8 [facility] Nitrite Test strip Ql (U)Ord ered By: Honey Rabago on 12-30-2021 Nitrite Ql (U) Positive Negative [facility] Protein Auto test strip (U) [Mass/Vol]Ordered By: Honey Rabago on 12-30-2021 Protein (U) [Mass/Vol] Trace mg/dL Negative [facility] Specific gravity Auto test s trip (U) [Rel density]Ordered By: Honey Rabago on 12-30-2021 Specific gravity (U) [Rel density] 1.017 1.001-1.03 0 [facility] Squamous epithelial cells de tection in urine sediment by light microscopyOrdered By: Honey Rabago on 12-30-2021 Epithelial cells.squamous LM Ql (Urine sed) 1-2 [HPF] 0-2 [facility] Urine Cultureon 12-30-2021 Bacteria identified Cx Nom (U) ORGANISM: Escherichia coli (O:ESCCOL) [place] Count >100,000 Aerobic JIMMY Charge (NUC86) SUSCEPTIBILITY [...] RESISTANT TO ALL B-LACTAM DRUGS. PERFORMED BY: [address] [place] [address] PATHOLOGIST [employer] PROF[employer] FLIP GERMAN M.D. Normal [facility] Comment on above: Performed By: #### G LULS #### Point of Care testing , Urine bacteria detection by automated methodOrdered By: Honey Rabago on 12-30-2021 Bacteria Auto Ql (U) 1+ None Seen [facility] Urine clarity by refractomet ry automatedOrdered By: Honey Rabago on 12-30-2021 Clarity Refractometry automated (U) Cloudy Clear [facility] Urine glucose measurement by automated test strip (mass/volume)Ordered By: Honey Rabago on 12-30-2021 Glucose Auto test strip (U) [Mass/Vol] Normal mg/dL Normal [facility] Urine hemoglobin detection b y automated test stripOrdered By: Honey Rabago on 12-30-2021 Hemoglobin Auto test strip Ql (U) Negative Negative [facility] Urine leukocyte esterase det ection by automated test stripOrdered By: Honey Rabago on 12-30-2021 Leukocyte esterase Auto test strip Ql (U) 3+ Negative [facility] Urine pH measurement by auto mated test stripOrdered By: Honey Rabago on 12-30-2021 pH (U) 8.5 [pH] Normal 5.0-9.0 [facility] Comment on above: Order Comment: Name Collection Type:: Clean-Voided Midstream Performed By: #### G IAN #### Point of Care testing , Urine sediment crystal ident ification by light microscopyOrdered By: Honey Rabago on 12-30-2021 Crystals LM Nom (Urine sed) None seen [HPF] [facility] Urobilinogen Auto test strip (U) [Mass/Vol]Ordered By: Honey Rabago on 12-30-2021 Urobilinogen (U) [Mass/Vol] Normal mg/dL Normal [facility] PROTIMEon 12-21-2021 INR Coag (PPP) [Relative time] 2.34 {INR} Normal [facility] Comment on above: Performed By: #### P T #### [facility] [address] [place] [address] Dr. Joyce Strauss INR GUIDELINES SEE BELOW Normal [facility] Comment on above: Result Comment: GUDELIA RED INR: 2.0 - 3.0 CONDITIONS NOT LISTED BELOW 2.5 - 3.5 FOR PROSTHETIC HEART VALVE REPLACEMENT 2.5 - 3.5 RECURRENT THROMBOSIS Performed By: #### P T #### [facility] [address] [place] [address] Dr. Joyce Strauss PT Coag (PPP) [Time] 23.9 s Critically high 9.0-11.6 [facility] Comment on above: Performed By: #### P T #### [facility] [address] [place] [address] Dr. Joyce Strauss PROTIMEon 12-14-2021 INR GUIDELINES SEE BELOW Normal [facility] Comment on above: Result Comment: GUDELIA RED INR: 2.0 - 3.0 CONDITIONS NOT LISTED BELOW 2.5 - 3.5 FOR PROSTHETIC HEART VALVE REPLACEMENT 2.5 - 3.5 RECURRENT THROMBOSIS Performed By: #### P T #### [facility] [address] [place] [address] Dr. Joyce Strauss PT Coag (PPP) [Time] 20.6 s Critically high 9.0-11.6 [facility] Comment on above: Performed By: #### P T #### [facility] [address] [address] [address] Joyce Strauss Prothrombin Time INRon 12-14 Prothrombin Time INR [facility] Other INR Coag (PPP) [Relative time] 2.00 {INR} Normal [facility] Other Comment on above: Performed By: #### P T #### [facility] [address] [address] [address] Joyce Strauss PROTIMEon 11-30-2021 INR GUIDELINES SEE BELOW Normal [facility] Comment on above: Result Comment: GUDELIA RED INR: 2.0 - 3.0 CONDITIONS NOT LISTED BELOW 2.5 - 3.5 FOR PROSTHETIC HEART VALVE REPLACEMENT 2.5 - 3.5 RECURRENT THROMBOSIS Performed By: #### P T #### [facility] [address] [address] [address] Joyce Strauss PT Coag (PPP) [Time] 25.9 s Critically high 9.0-11.6 [facility] Comment on above: Performed By: #### P T #### [facility] [address] [address] [address] Joyce Strauss Prothrombin Time INRon 11-30 Prothrombin Time INR [facility] Other INR Coag (PPP) [Relative time] 2.55 {INR} Normal [facility] Other Comment on above: Performed By: #### P T #### [facility] [address] [address] [address] Joyce Strauss Glucose Glucometer ([facility]) [M ass/Vol]Ordered By: Alcides Moya on 11-25-2021 Glucose [Mass/Vol] 125 mg/dL [facility] Comment on above: Random Glucose Refer ence Range is dependent on time and content of last meal. Glucose of more than 200 mg/dL in a nonstressed, ambulatory subject supports the diagnosis of Diabetes Mellitus. Glucose Poct Glucometerson 0 11-25-2021 Glucose [Mass/Vol] 125 mg/dL Normal [facility] Comment on above: Result Comment: [facility] Glucose Reference Range is dependent on time and content of last meal. Glucose of more than 200 mg/dL in a nonstressed, ambulatory subject supports the diagnosis of Diabetes Mellitus. PERFORMED BY: [facility] [place] [address] PATHOLOGIST [employer] PROFESSIONAL FLIP GERMAN M.D. Performed By: #### G LULS #### Point of Care testing , Laboratory - CoagulationOrde red By: Alcides Moya on 11-25-2021 PT Coag (PPP) [Time] 25.5 s 9.0-12.9 [facility] Platelet poor plasma interna tional normalized ratio (INR) by coagulation assay (relatOrdered By: Alcides Moya on 11-25-2021 INR Coag (PPP) [Relative time] 2.2 {INR} [facility] Comment on above: INR Therapeutic Rang [...] Coag (PPP) [Relative time] 2.2 {INR} Normal [facility] Comment on above: Order Comment: List [...] heart valves: 3 - 4.5 PERFORMED BY: [facility] [address] [place] [address] PATHOLOGIST [employer] PROFESSIONAL FLIP GERMAN M.D. Performed By: #### G LULS #### Point of Care testing , PT Coag (PPP) [Time] 25.5 s High 9.0-12.9 [facility] Comment on above: Order Comment: List the anticoagulant: COUMADIN/WARFARIN Performed By: #### G LULS #### Point of Care testing , Basic Metabolic Panelon 11-12 Anion gap [Moles/Vol] 11.8 mmol/L Normal 6.0-15.0 [facility] Comment on above: Performed By: #### G LULS #### Point of Care testing , Calcium [Mass/Vol] 8.7 mg/dL Normal 8.2-10.2 [facility] Comment on above: Performed By: #### G LULS #### Point of Care testing , Chloride [Moles/Vol] 103 mmol/L Normal 95-114 [facility] Comment on above: Performed By: #### G LULS #### Point of Care testing , CO2 [Moles/Vol] 28.1 mmol/L Normal 22.0-30.0 [facility] Comment on above: Performed By: #### G LULS #### Point of Care testing , Creatinine [Mass/Vol] 0.53 mg/dL Normal 0.44-1.03 [facility] Comment on above: Performed By: #### G LULS #### Point of Care testing , Creatinine Clr Calc Pharmacy 64.37 [facility] Comment on above: Result Comment: PERF ORMED BY: [facility] [address] [place] [address] PATHOLOGIST [employer] PROFESSIONAL FLIP GERMAN M.D. Performed By: #### G LULS #### Point of Care testing , Estimated GFR ( Trista > 60 [facility] Comment on above: Result Comment: GFR estimated reference range: According to KDOQI guidelines, <60 ml/min/1.73m2 is sufficient to diagnose a patient with chronic kidney disease. Performed By: #### G LULS #### Point of Care testing , Estimated GFR (Non- Am > 60 Normal [facility] Comment on above: Performed By: #### G LULS #### Point of Care testing , Glucose [Mass/Vol] 138 mg/dL High 70-100 [facility] Comment on above: Result Comment: [place] Glucose Reference Range is dependent on time and content of last meal. Glucose of more than 200 mg/dL in a nonstressed, ambulatory subject supports the diagnosis of Diabetes Mellitus. ADA recommended reference range Performed By: #### G LULS #### Point of Care testing , Potassium [Moles/Vol] 3.9 mmol/L Normal 3.5-5.1 [facility] Comment on above: Performed By: #### G LULS #### Point of Care testing , Sodium [Moles/Vol] 139 mmol/L Normal 136-146 [facility] Comment on above: Performed By: #### G LULS #### Point of Care testing , Urea nitrogen [Mass/Vol] 6 mg/dL Low 9-23 [facility] Comment on above: Performed By: #### G LULS #### Point of Care testing , Basophils Auto (Bld) [#/Vol] Ordered By: Elham Mendoza on 11-24-2021 Basophils (Bld) [#/Vol] N/A [facility] Basophils/100 WBC Auto (Bld) Ordered By: Elham Mendoza on 11-24-2021 Basophils/100 WBC (Bld) N/A [facility] Blood anisocytosis detection Ordered By: Elham Mendoza on 11-24-2021 Anisocytosis Ql (Bld) Moderate [facility] Blood hemoglobin measurement (mass/volume)Ordered By: Elham Mendoza on 11-24-2021 Hemoglobin (Bld) [Mass/Vol] 11.4 g/dL 11.8-15.4 [facility] Blood leukocytes automated c ount (number/volume)Ordered By: Elham Mendoza on 11-24-2021 WBC (Bld) [#/Vol] 6.0 10*3/uL 4.5-11.0 [facility] Creatinine and Glomerular fi ltration rate.predicted panel (S/P/Bld)Ordered By: Elham Mendoza on 11-24-2021 Creatinine [Mass/Vol] 0.53 mg/dL 0.44-1.03 [facility] Diff and CBCon 11-24-2021 Anisocytosis Ql (Bld) Moderate Normal [facility] Comment on above: Performed By: #### G GELACIOLS #### Point of Care testing , Eosinophils/100 WBC (Bld) 2 % Normal 1-3 [facility] Comment on above: Performed By: #### G GELACIOLS #### Point of Care testing , Erythrocyte distribution width (RBC) [Ratio] 18.4 % High 11.9-15.3 [facility] Comment on above: Performed By: #### G GELACIOLS #### Point of Care testing , Hematocrit (Bld) [Volume fraction] 34.9 % Normal 34.0-46.4 [facility] Comment on above: Performed By: #### G LULS #### Point of Care testing , Hemoglobin (Bld) [Mass/Vol] 11.4 g/dL Low 11.8-15.4 [facility] Comment on above: Performed By: #### G GELACIOLS #### Point of Care testing , Lymphocytes/100 WBC (Bld) 35 % Normal 18-42 [facility] Comment on above: Performed By: #### G GELACIOLS #### Point of Care testing , MCH (RBC) [Entitic mass] 29.9 pg Normal 24.7-34.3 [facility] Comment on above: Performed By: #### G LULS #### Point of Care testing , MCV (RBC) [Entitic vol] 91.2 fL Normal 80-100 [facility] Comment on above: Performed By: #### G LULS #### Point of Care testing , Mean Corpuscular HGB Conc 32.8 g/dL Normal 32.0-35.0 [facility] Comment on above: Performed By: #### G GELACIOLS #### Point of Care testing , Monocytes/100 WBC (Bld) 7 % Normal 2-11 [facility] Comment on above: Performed By: #### G GELACIOLS #### Point of Care testing , Myelocytes 1 % High 0-0 [facility] Comment on above: Performed By: #### G LULS #### Point of Care testing , Nucleated RBC/100 WBC (Bld) [Ratio] 0.5 % Normal 0-0.5 [facility] Comment on above: Result Comment: PERF ORMED BY: [address] [place] [address] PATHOLOGIST [employer] PROFESSIONAL FLIP GERMAN M.D. Performed By: #### G GELACIOLS #### Point of Care testing , Platelet Estimate Normal Normal Normal [facility] Comment on above: Performed By: #### G GELACIOLS #### Point of Care testing , Platelet mean volume (Bld) [Entitic vol] 8.8 fL Normal 6.3-10.7 [facility] Comment on above: Performed By: #### G IAN #### Point of Care testing , Platelet Morphology Normal Normal Normal [facility] Comment on above: Result Comment: PERF ORMED BY: [facility] [address] [place] [address] PATHOLOGIST [employer] PROFESSIONAL FLIP GERMAN M.D. Performed By: #### G GELACIOLS #### Point of Care testing , Platelets (Bld) [#/Vol] 285 10*3/uL Normal 150-450 [facility] Comment on above: Performed By: #### G GELACIOLS #### Point of Care testing , RBC (Bld) [#/Vol] 3.82 10*6/uL Normal 3.60-5.00 [facility] Comment on above: Performed By: #### G GELACIOLS #### Point of Care testing , Reactive Lymphocytes 1 % Normal 0-12 [facility] Comment on above: Performed By: #### G LULS #### Point of Care testing , Segmented neutrophils/100 WBC (Bld) 54 % Normal 50-70 [facility] Comment on above: Performed By: #### G LULS #### Point of Care testing , WBC (Bld) [#/Vol] 6.0 10*3/uL Normal 4.5-11.0 [facility] Comment on above: Performed By: #### G LULS #### Point of Care testing , Eosinophils Auto (Bld) [#/Vo l]Ordered By: Elham Mendoza on 11-24-2021 Eosinophils (Bld) [#/Vol] N/A [facility] Eosinophils/100 WBC Auto (Bl d)Ordered By: Elham Mendoza on 11-24-2021 Eosinophils/100 WBC (Bld) N/A [facility] Erythrocyte distribution wid th Auto (RBC) [Ratio]Ordered By: Elham Mendoza on 11-24-2021 Erythrocyte distribution width (RBC) [Ratio] 18.4 % 11.9-15.3 [facility] Estimated glomerular filtrat ion rate (GFR) non- AmericanOrdered By: Elham Mendoza on 11-24-2021 GFR/1.73 sq M.predicted among non-blacks MDRD (S/P/Bld) [Vol rate/Area] > 60 mL/Min [facility] Glucose Poct Glucometerson 0 11-24-2021 Glucose [Mass/Vol] 139 mg/dL Normal [facility] Comment on above: Result Comment: [facility] Glucose Reference Range is dependent on time and content of last meal. Glucose of more than 200 mg/dL in a nonstressed, ambulatory subject supports the diagnosis of Diabetes Mellitus. PERFORMED BY: [address] [place] [address] PATHOLOGIST NETWORK PROFESSIONAL FLIP GERMAN M.D. Performed By: #### G LULS #### Point of Care testing , Hematocrit Auto (Bld) [Volum e fraction]Ordered By: Elham Mendoza on 11-24-2021 Hematocrit (Bld) [Volume fraction] 34.9 % 34.0-46.4 [facility] Laboratory - Hematology and Cell countsOrdered By: Elham Mendoza on 11-24-2021 Nucleated RBC/100 WBC (Bld) [Ratio] 0.5 % 0-0.5 [facility] Lymphocytes Auto (Bld) [#/Vo l]Ordered By: Elham Mendoza on 11-24-2021 Lymphocytes (Bld) [#/Vol] N/A [facility] Lymphocytes/100 WBC Auto (Bl d)Ordered By: Elham Mendoza on 11-24-2021 Lymphocytes/100 WBC (Bld) N/A [facility] Lymphocytes/100 WBC (Bld) 35 % 18-42 [facility] Lymphocytes/100 WBC Manual c nt (Bld)Ordered By: Elham Mendoza on 11-24-2021 Lymphocytes/100 WBC (Bld) 1 % 0-12 [facility] MCH Auto (RBC) [Entitic mass ]Ordered By: Elham Mendoza on 11-24-2021 MCH (RBC) [Entitic mass] 29.9 pg 24.7-34.3 [facility] MCHC Auto (RBC) [Mass/Vol]Or dered By: Elham Mendoza on 11-24-2021 MCHC (RBC) [Mass/Vol] 32.8 g/dL 32.0-35.0 [facility] MCV Auto (RBC) [Entitic vol] Ordered By: Elham Mendoza on 11-24-2021 MCV (RBC) [Entitic vol] 91.2 fL 80-100 [facility] Monocyte %Ordered By: Elham Mendoza on 11-24-2021 Monocytes/100 WBC (Bld) 2 % 1-3 [facility] Monocytes Auto (Bld) [#/Vol] Ordered By: Elham Mendoza on 11-24-2021 Monocytes (Bld) [#/Vol] N/A [facility] Monocytes/100 WBC Auto (Bld) Ordered By: Elham Mendoza on 11-24-2021 Monocytes/100 WBC (Bld) N/A [facility] Monocytes/100 WBC Manual cnt (Bld)Ordered By: Elham Mendoza on 09-13-2022 Monocytes/100 WBC (Bld) 7 % 2-11 [facility] Myelocytes/100 WBC Manual cn t (Bld)Ordered By: Elham Mendoza on 11-24-2021 Myelocytes/100 WBC (Bld) 1 % 0-0 [facility] Neutrophils Auto (Bld) [#/Vo l]Ordered By: Elham Mendoza on 11-24-2021 Neutrophils (Bld) [#/Vol] N/A [facility] Neutrophils/100 WBC Auto (Bl d)Ordered By: Elham Mendoza on 11-24-2021 Neutrophils/100 WBC (Bld) N/A [facility] No Panel InformationOrdered By: Elham Mendoza on 11-24-2021 Estimated GFR () > 60 mL/Min [facility] Comment on above: GFR estimated refere nce range: According to KDOQI guidelines, <60 ml/min/1.73m2 is sufficient to diagnose a patient with chronic kidney disease. Pharmacy Creatinine Clearance (Chem 64.37 [facility] Platelet Estimate Normal Normal [facility] Platelet Morphology Comment Normal Normal [facility] Platelet mean volume Auto (B ld) [Entitic vol]Ordered By: Elham Mendoza on 11-24-2021 Platelet mean volume (Bld) [Entitic vol] 8.8 fL 6.3-10.7 [facility] Platelets Auto (Bld) [#/Vol] Ordered By: Elham Mendoza on 11-24-2021 Platelets (Bld) [#/Vol] 285 10*3/uL 150-450 [facility] Prothrombin Time INRon 11-24 INR Coag (PPP) [Relative time] 2.6 {INR} Normal [facility] Comment on above: Order Comment: FIRST [...] heart valves: 3 - 4.5 PERFORMED BY: [facility] [place] [address] PATHOLOGIST [employer] PROFESSIONAL FLIP GERMAN M.D. Performed By: #### P T ####[facility] [place] [address] [facility] PT Coag (PPP) [Time] 29.3 s High 9.0-12.9 [facility] Comment on above: Order Comment: FIRST SPECIMEN HEMOLYZED Performed By: #### P T ####[facility] [id number] [facility] RBC Auto (Bld) [#/Vol]Ordere d By: Elham Mendoza on 11-24-2021 RBC (Bld) [#/Vol] 3.82 10*6/uL 3.60-5.00 [facility] RBC morphologyOrdered By: Pramod Mendoza on 11-24-2021 RBC morphology finding Nom (Bld) N/A [facility] Segmented neutrophils/100 WB C Manual cnt (Bld)Ordered By: Elham Mendoza on 11-24-2021 Segmented neutrophils/100 WBC (Bld) 54 % 50-70 [facility] Serum or plasma anion gap de terminationOrdered By: Elham Mendoza on 11-24-2021 Anion gap [Moles/Vol] 11.8 mmol/L 6.0-15.0 [facility] Serum or plasma calcium alondra urement (mass/volume)Ordered By: Elham Mendoza on 11-24-2021 Calcium [Mass/Vol] 8.7 mg/dL 8.2-10.2 [facility] Serum or plasma chloride link surement (moles/volume)Ordered By: Elham Mendoza on 11-24-2021 Chloride [Moles/Vol] 103 mmol/L 95-114 [facility] Serum or plasma glucose alondra urement (mass/volume)Ordered By: Elham Mendoza on 11-24-2021 Glucose [Mass/Vol] 138 mg/dL 70-100 [facility] Comment on above: ADA recommended refe [...] on 11-24-2021 Potassium [Moles/Vol] 3.9 mmol/L 3.5-5.1 [facility] Serum or plasma sodium measu rement (moles/volume)Ordered By: Elham Mendoza on 11-24-2021 Sodium [Moles/Vol] 139 mmol/L 136-146 [facility] Serum or plasma total carbon dioxide measurement (moles/volume)Ordered By: Elham Mendoza on 11-24-2021 CO2 [Moles/Vol] 28.1 mmol/L 22.0-30.0 [facility] Serum or plasma urea nitroge n measurement (mass/volume)Ordered By: Elham Mendoza on 11-24-2021 Urea nitrogen [Mass/Vol] 6 mg/dL 9- [facility] Glucose Poct Glucometerson 0 11-23-2021 Glucose [Mass/Vol] 157 mg/dL Normal [facility] Comment on above: Result Comment: [place] Glucose Reference Range is dependent on time and content of last meal. Glucose of more than 200 mg/dL in a nonstressed, ambulatory subject supports the diagnosis of Diabetes Mellitus. PERFORMED BY: [address] [place] [address] PATHOLOGIST NETWORK PROFESSIONAL FLIP GERMAN M.D. Performed By: #### G LUCOLLIN #### Point of Care testing , Prothrombin Time INRon 11-23 INR Coag (PPP) [Relative time] 2.9 {INR} Normal [facility] Comment on above: Order Comment: List [...] heart valves: 3 - 4.5 PERFORMED BY: [address] [place] [address] PATHOLOGIST [employer] PROFESSIONAL FLIP GERMAN M.D. Performed By: #### G LULS #### Point of Care testing , PT Coag (PPP) [Time] 33.5 s High 9.0-12.9 [facility] Comment on above: Order Comment: List the anticoagulant: COUMADIN/WARFARIN Performed By: #### G LULS #### Point of Care testing , Glucose Poct Glucometerson 0 11-22-2021 Glucose [Mass/Vol] 161 mg/dL Normal [facility] Comment on above: Result Comment: [facility] Glucose Reference Range is dependent on time and content of last meal. Glucose of more than 200 mg/dL in a nonstressed, ambulatory subject supports the diagnosis of Diabetes Mellitus. PERFORMED BY: [address] [place] [address] PATHOLOGIST [employer] PROFESSIONAL FLIP GERMAN M.D. Performed By: #### G LULS #### Point of Care testing , Glucose [Mass/Vol] 112 mg/dL Normal [facility] Comment on above: Result Comment: [facility] Glucose Reference Range is dependent on time and content of last meal. Glucose of more than 200 mg/dL in a nonstressed, ambulatory subject supports the diagnosis of Diabetes Mellitus. PERFORMED BY: [place] [address] [place] [address] PATHOLOGIST NETWORK PROFESSIONAL FLIP GERMAN M.D. Performed By: #### G LULS #### Point of Care testing , Prothrombin Time INRon 11-22 INR Coag (PPP) [Relative time] 2.1 {INR} Normal [facility] Comment on above: Order Comment: List [...] heart valves: 3 - 4.5 PERFORMED BY: [facility] [address] [place] [address] PATHOLOGIST NETWORK PROFESSIONAL FLIP GERMAN M.D. Performed By: #### G LULS #### Point of Care testing , PT Coag (PPP) [Time] 24.4 s High 9.0-12.9 [facility] Comment on above: Order Comment: List the anticoagulant: COUMADIN/WARFARIN Performed By: #### G LULS #### Point of Care testing , Glucose Poct Glucometerson 0 11-21-2021 Commemt1 Glu2: Cleaned Meter [facility] Comment on above: Result Comment: PERF ORMED BY: [facility] [address] [place] [address] PATHOLOGIST NETWORK PROFESSIONAL FLIP GERMAN M.D. Performed By: #### G LULS #### Point of Care testing , Glucose [Mass/Vol] 130 mg/dL Normal [facility] Comment on above: Result Comment: Hospital [...] 11-21-2021 Bedside Glucose Comment Glu2: cleaned meter [facility] Prothrombin Time INRon 11-21 INR Coag (PPP) [Relative time] 1.9 {INR} [facility] Comment on above: Order Comment: List the [...] heart valves: 3 - 4.5 PERFORMED BY: [facility] [address] [place] [address] PATHOLOGIST NETWORK PROFESSIONAL FLIP GERMAN M.D. Performed By: #### G LULS #### Point of Care testing , PT Coag (PPP) [Time] 21.8 s High 9.0-12.9 [facility] Comment on above: Order Comment: List the anticoagulant: COUMADIN/WARFARIN Performed By: #### G LULS #### Point of Care testing , Glucose Poct Glucometerson 0 11-20-2021 Commemt1 Glu2: Cleaned Meter Normal [facility] Comment on above: Result Comment: PERF ORMED BY: [facility] [address] [place] [address] PATHOLOGIST NETWORK PROFESSIONAL FLIP GERMAN M.D. Performed By: #### G LULS #### Point of Care testing , Glucose [Mass/Vol] 112 mg/dL Normal [facility] Comment on above: Result Comment: [place] Glucose Reference Range is dependent on time and content of last meal. Glucose of more than 200 mg/dL in a nonstressed, ambulatory subject supports the diagnosis of Diabetes Mellitus. Performed By: #### G LULS #### Point of Care testing , Glucose [Mass/Vol] 129 mg/dL Normal [facility] Comment on above: Result Comment: [place] Glucose Reference Range is dependent on time and content of last meal. Glucose of more than 200 mg/dL in a nonstressed, ambulatory subject supports the diagnosis of Diabetes Mellitus. PERFORMED BY: [facility] [address] [place] [address] PATHOLOGIST NETWORK PROFESSIONAL FLIP GERMAN M.D. Performed By: #### G LULS #### Point of Care testing , Prothrombin Time INRon 11-20 INR Coag (PPP) [Relative time] 2.3 {INR} Normal [facility] Comment on above: Order Comment: List [...] heart valves: 3 - 4.5 PERFORMED BY: [facility] [address] [place] [address] PATHOLOGIST NETWORK PROFESSIONAL FLIP GERMAN M.D. Performed By: #### G LULS #### Point of Care testing , PT Coag (PPP) [Time] 26.6 s High 9.0-12.9 [facility] Comment on above: Order Comment: List the anticoagulant: COUMADIN/WARFARIN Performed By: #### G LULS #### Point of Care testing , CT biopsyOrdered By: Amanda viveros on 11-19-2021 Transferrin [Mass/Vol] 173 mg/dL 180-380 [facility] Glucose Poct Glucometerson 0 11-19-2021 Glucose [Mass/Vol] 122 mg/dL Normal [facility] Comment on above: Result Comment: [facility] Glucose Reference Range is dependent on time and content of last meal. Glucose of more than 200 mg/dL in a nonstressed, ambulatory subject supports the diagnosis of Diabetes Mellitus. PERFORMED BY: [facility] [address] [place] [address] PATHOLOGIST NETWORK PROFESSIONAL FLIP GERMAN M.D. Performed By: #### G LULS #### Point of Care testing , Iron [Mass/volume] in Serum or PlasmaOrdered By: Amanda Jaimes on 11-19-2021 Iron [Mass/Vol] 56 ug/dL 40-150 [facility] Iron and TIBC Profileon % Iron Saturation 23.0 % Normal 20-50 [facility] Comment on above: Performed By: #### F E and TIBC ####[facility] [id number] [place] [address] [facility] Iron [Mass/Vol] 56 ug/dL Normal 40-150 [facility] Comment on above: Performed By: #### F E and TIBC ####[place] [id number] [place] [id number] [facility] Total Iron Binding Capacity 242 ug/dL Low 255-450 [facility] Comment on above: Performed By: #### F E and TIBC ####[place] [id number] [place] [id number] [facility] Transferrin [Mass/Vol] 173 mg/dL Low 180-380 [facility] Comment on above: Result Comment: PERF ORMED BY: [facility] [address] [place] [address] PATHOLOGIST NETWORK PROFESSIONAL FLIP GERMAN M.D. Performed By: #### F E and TIBC ####[place] [id number] [facility] Iron binding capacity [Mass/ volume] in Serum or PlasmaOrdered By: Amanda Jaimes on 11-19-2021 Iron binding capacity [Mass/Vol] 242 ug/dL 255-450 [facility] Iron saturation [Mass Fracti on] in Serum or PlasmaOrdered By: Amanda Jaimes on 11-19-2021 Iron saturation [Mass fraction] 23.0 % 20-50 [facility] Prothrombin Time INRon 11-19 INR Coag (PPP) [Relative time] 2.5 {INR} Normal [facility] Comment on above: Order Comment: List [...] heart valves: 3 - 4.5 PERFORMED BY: [facility] [address] [place] [address] PATHOLOGIST NETWORK PROFESSIONAL FLIP GERMAN M.D. Performed By: #### P T ####[place] [id number] [facility] PT Coag (PPP) [Time] 28.4 s High 9.0-12.9 [facility] Comment on above: Order Comment: List the anticoagulant: COUMADIN/WARFARIN Performed By: #### P T ####[facility] [id number] [place] [address] [facility] Basic Metabolic Panelon 090 Anion gap [Moles/Vol] 12.3 mmol/L Normal 6.0-15.0 [facility] Comment on above: Performed By: #### G LULS #### Point of Care testing , Calcium [Mass/Vol] 8.8 mg/dL Normal 8.2-10.2 [facility] Comment on above: Performed By: #### G LULS #### Point of Care testing , Chloride [Moles/Vol] 101 mmol/L Normal 95-114 [facility] Comment on above: Performed By: #### G LULS #### Point of Care testing , CO2 [Moles/Vol] 30.7 mmol/L High 22.0-30.0 [facility] Comment on above: Performed By: #### G LULS #### Point of Care testing , Creatinine [Mass/Vol] 0.53 mg/dL Normal 0.44-1.03 [facility] Comment on above: Performed By: #### G LULS #### Point of Care testing , Creatinine Clr Calc Pharmacy 64.26 [facility] Comment on above: Result Comment: PERF ORMED BY: [facility] [address] [place] [address] PATHOLOGIST NETWORK PROFESSIONAL FLIP GERMAN M.D. Performed By: #### G LULS #### Point of Care testing , Estimated GFR ( Trista > 60 [facility] Comment on above: Result Comment: GFR estimated reference range: According to KDOQI guidelines, <60 ml/min/1.73m2 is sufficient to diagnose a patient with chronic kidney disease. Performed By: #### G LULS #### Point of Care testing , Estimated GFR (Non- Am > 60 [facility] Comment on above: Performed By: #### G LULS #### Point of Care testing , Glucose [Mass/Vol] 131 mg/dL High 70-100 [facility] Comment on above: Result Comment: [place] Glucose Reference Range is dependent on time and content of last meal. Glucose of more than 200 mg/dL in a nonstressed, ambulatory subject supports the diagnosis of Diabetes Mellitus. ADA recommended reference range Performed By: #### G LULS #### Point of Care testing , Potassium [Moles/Vol] 4.0 mmol/L Normal 3.5-5.1 [facility] Comment on above: Performed By: #### G LULS #### Point of Care testing , Sodium [Moles/Vol] 140 mmol/L Normal 136-146 [facility] Comment on above: Performed By: #### G LULS #### Point of Care testing , Urea nitrogen [Mass/Vol] 8 mg/dL Low 9-23 [facility] Comment on above: Performed By: #### G LULS #### Point of Care testing , Complete Blood Count Auto Di ffon 11-18-2021 Basophils (Bld) [#/Vol] 0.0 10*3/uL Normal 0.0-0.2 [facility] Comment on above: Result Comment: PERF ORMED BY: [facility] [address] [place] [address] PATHOLOGIST NETWORK PROFESSIONAL FLIP GERMAN M.D. Performed By: #### G LULS #### Point of Care testing , Basophils/100 WBC (Bld) 0.5 % Normal . [facility] Comment on above: Performed By: #### G LULS #### Point of Care testing , Eosinophils (Bld) [#/Vol] 0.2 10*3/uL Normal 0.0-0.45 [facility] Comment on above: Performed By: #### G LULS #### Point of Care testing , Eosinophils/100 WBC (Bld) 4.0 % Normal . [facility] Comment on above: Performed By: #### G LULS #### Point of Care testing , Erythrocyte distribution width (RBC) [Ratio] 17.8 % High 11.9-15.3 [facility] Comment on above: Performed By: #### G LULS #### Point of Care testing , Hematocrit (Bld) [Volume fraction] 33.3 % Low 34.0-46.4 [facility] Comment on above: Performed By: #### Ezra SOSA #### Point of Care testing , Hemoglobin (Bld) [Mass/Vol] 10.9 g/dL Low 11.8-15.4 [facility] Comment on above: Performed By: #### Ezra SOSA #### Point of Care testing , Lymphocytes (Bld) [#/Vol] 2.2 10*3/uL Normal 1.00-4.8 [facility] Comment on above: Performed By: #### Ezra SOSA #### Point of Care testing , Lymphocytes/100 WBC (Bld) 40.3 % Normal . [facility] Comment on above: Performed By: #### Ezra SOSA #### Point of Care testing , MCH (RBC) [Entitic mass] 29.8 pg Normal 24.7-34.3 [facility] Comment on above: Performed By: #### Ezra BRIZUELALS #### Point of Care testing , MCV (RBC) [Entitic vol] 91.3 fL Normal 80-100 [facility] Comment on above: Performed By: #### Ezra SOSA #### Point of Care testing , Mean Corpuscular HGB Conc 32.6 g/dL Normal 32.0-35.0 [facility] Comment on above: Performed By: #### Ezra SOSA #### Point of Care testing , Monocytes (Bld) [#/Vol] 0.7 10*3/uL Normal 0.0-0.8 [facility] Comment on above: Performed By: #### Ezra SOSA #### Point of Care testing , Monocytes/100 WBC (Bld) 12.3 % Normal . [facility] Comment on above: Performed By: #### Ezra BRIZUELALS #### Point of Care testing , Neutrophils (Bld) [#/Vol] 2.3 10*3/uL Normal 1.8-7.7 [facility] Comment on above: Performed By: #### Ezra SOSA #### Point of Care testing , Neutrophils/100 WBC (Bld) 42.9 % Normal . [facility] Comment on above: Performed By: #### G IAN #### Point of Care testing , Nucleated RBC/100 WBC (Bld) [Ratio] 0.1 % Normal 0-0.5 [facility] Comment on above: Performed By: #### G GELACIOLS #### Point of Care testing , Platelet mean volume (Bld) [Entitic vol] 8.5 fL Normal 6.3-10.7 [facility] Comment on above: Performed By: #### G GELACIOLS #### Point of Care testing , Platelets (Bld) [#/Vol] 224 10*3/uL Normal 150-450 [facility] Comment on above: Performed By: #### G GELACIOLS #### Point of Care testing , RBC (Bld) [#/Vol] 3.65 10*6/uL Normal 3.60-5.00 [facility] Comment on above: Performed By: #### G GELACIOLS #### Point of Care testing , WBC (Bld) [#/Vol] 5.5 10*3/uL Normal 4.5-11.0 [facility] Comment on above: Performed By: #### G GELACIOLS #### Point of Care testing , Glucose Poct Glucometerson 0 11-18-2021 Glucose [Mass/Vol] 134 mg/dL Normal [facility] Comment on above: Result Comment: [facility] Glucose Reference Range is dependent on time and content of last meal. Glucose of more than 200 mg/dL in a nonstressed, ambulatory subject supports the diagnosis of Diabetes Mellitus. PERFORMED BY: [facility] [address] [place] [address] PATHOLOGIST NETWORK PROFESSIONAL FLIP GERMAN M.D. Performed By: #### G LULS #### Point of Care testing , Prothrombin Time INRon 11-18 INR Coag (PPP) [Relative time] 2.5 {INR} Normal [facility] Comment on above: Order Comment: List [...] valves: 3 - 4.5 PERFORMED BY: [address] [place] [id number] PATHOLOGIST NETWORK PROFESSIONAL FLIP GERMAN M.D. Performed By: #### G LULS #### Point of Care testing , PT Coag (PPP) [Time] 28.3 s High 9.0-12.9 [facility] Comment on above: Order Comment: List the anticoagulant: COUMADIN/WARFARIN Performed By: #### G LULS #### Point of Care testing , Glucose Poct Glucometerson 0 11-17-2021 Glucose [Mass/Vol] 124 mg/dL Normal [facility] Comment on above: Result Comment: [place] Glucose Reference Range is dependent on time and content of last meal. Glucose of more than 200 mg/dL in a nonstressed, ambulatory subject supports the diagnosis of Diabetes Mellitus. PERFORMED BY: [address] [place] [address] PATHOLOGIST NETWORK PROFESSIONAL FLIP GERMAN M.D. Performed By: #### G LULS #### Point of Care testing , Prothrombin Time INRon 11-17 INR Coag (PPP) [Relative time] 2.7 {INR} Normal [facility] Comment on above: Order Comment: List [...] valves: 3 - 4.5 PERFORMED BY: [address] [place] [address] PATHOLOGIST NETWORK PROFESSIONAL FLIP GERMAN M.D. Performed By: #### P T ####[facility] [id number] [place] [address] [facility] PT Coag (PPP) [Time] 30.8 s High 9.0-12.9 [facility] Comment on above: Order Comment: List the anticoagulant: COUMADIN/WARFARIN Performed By: #### P T ####[facility] [place] [address] [facility] Glucose Poct Glucometerson 0 11-16-2021 Commemt1 Glu2: Cleaned Meter Normal [facility] Comment on above: Result Comment: PERF ORMED BY: [facility] [address] [place] [id number] PATHOLOGIST NETWORK PROFESSIONAL FLIP GERMAN M.D. Performed By: #### G LULS #### Point of Care testing , Glucose [Mass/Vol] 125 mg/dL Normal [facility] Comment on above: Result Comment: Hospital [...] Coag (PPP) [Relative time] 2.9 {INR} Normal [facility] Comment on above: Order Comment: List [...] heart valves: 3 - 4.5 PERFORMED BY: [facility] [address] [place] [id number] PATHOLOGIST NETWORK PROFESSIONAL FLIP GERMAN M.D. Performed By: #### G LULS #### Point of Care testing , PT Coag (PPP) [Time] 32.9 s High 9.0-12.9 [facility] Comment on above: Order Comment: List the anticoagulant: COUMADIN/WARFARIN Performed By: #### G LULS #### Point of Care testing , Glucose Poct Glucometerson 0 11-15-2021 Glucose [Mass/Vol] 145 mg/dL Normal [facility] Comment on above: Result Comment: [place] om Glucose Reference Range is dependent on time and content of last meal. Glucose of more than 200 mg/dL in a nonstressed, ambulatory subject supports the diagnosis of Diabetes Mellitus. PERFORMED BY: [address] [place] [address] PATHOLOGIST NETWORK PROFESSIONAL FLIP GERMAN M.D. Performed By: #### G LULS #### Point of Care testing , Commemt1 Glu2: Cleaned Meter [facility] Comment on above: Result Comment: PERF ORMED BY: [place] [address] PATHOLOGIST NETWORK PROFESSIONAL FLIP GERMAN M.D. Performed By: #### G LULS #### Point of Care testing , Glucose [Mass/Vol] 131 mg/dL Normal [facility] Comment on above: Result Comment: [place] om Glucose Reference Range is dependent on time and content of last meal. Glucose of more than 200 mg/dL in a nonstressed, ambulatory subject supports the diagnosis of Diabetes Mellitus. Performed By: #### G LULS #### Point of Care testing , Commemt1 Glu2: Cleaned Meter [facility] Comment on above: Result Comment: PERF ORMED BY: [place] [id number] PATHOLOGIST NETWORK PROFESSIONAL FLIP GERMAN M.D. Performed By: #### G LULS #### Point of Care testing , Glucose [Mass/Vol] 201 mg/dL Normal [facility] Comment on above: Result Comment: [place] om Glucose Reference Range is dependent on time and content of last meal. Glucose of more than 200 mg/dL in a nonstressed, ambulatory subject supports the diagnosis of Diabetes Mellitus. Performed By: #### G LULS #### Point of Care testing , Commemt1 Glu2: Cleaned Meter Normal [facility] Comment on above: Result Comment: PERF ORMED BY: [facility] [address] [place] [id number] PATHOLOGIST NETWORK PROFESSIONAL FLIP GERMAN M.D. Performed By: #### G LULS #### Point of Care testing , Glucose [Mass/Vol] 184 mg/dL Normal [facility] Comment on above: Result Comment: [place] Glucose Reference Range is dependent on time and content of last meal. Glucose of more than 200 mg/dL in a nonstressed, ambulatory subject supports the diagnosis of Diabetes Mellitus. Performed By: #### G LULS #### Point of Care testing , Prothrombin Time INRon 11-15 INR Coag (PPP) [Relative time] 2.4 {INR} [facility] Comment on above: Order Comment: List the [...] heart valves: 3 - 4.5 PERFORMED BY: [place] [address] [place] [address] PATHOLOGIST NETWORK PROFESSIONAL FLIP GERMAN M.D. Performed By: #### G LULS #### Point of Care testing , PT Coag (PPP) [Time] 27.8 s High 9.0-12.9 [facility] Comment on above: Order Comment: List the anticoagulant: COUMADIN/WARFARIN Performed By: #### G LULS #### Point of Care testing , Glucose Poct Glucometerson 0 11-14-2021 Commemt1 Glu2: Cleaned Meter [facility] Comment on above: Result Comment: PERF ORMED BY: [facility] [address] [place] [id number] PATHOLOGIST NETWORK PROFESSIONAL FLIP GERMAN M.D. Performed By: #### G LULS #### Point of Care testing , Glucose [Mass/Vol] 152 mg/dL Normal [facility] Comment on above: Result Comment: [place] Glucose Reference Range is dependent on time and content of last meal. Glucose of more than 200 mg/dL in a nonstressed, ambulatory subject supports the diagnosis of Diabetes Mellitus. Performed By: #### G LULS #### Point of Care testing , Glucose [Mass/Vol] 179 mg/dL Normal [facility] Comment on above: Result Comment: [facility] Glucose Reference Range is dependent on time and content of last meal. Glucose of more than 200 mg/dL in a nonstressed, ambulatory subject supports the diagnosis of Diabetes Mellitus. PERFORMED BY: [address] [place] [id number] PATHOLOGIST NETWORK PROFESSIONAL FLIP GERMAN M.D. Performed By: #### G LULS #### Point of Care testing , Glucose [Mass/Vol] 211 mg/dL Normal [facility] Comment on above: Result Comment: [facility] Glucose Reference Range is dependent on time and content of last meal. Glucose of more than 200 mg/dL in a nonstressed, ambulatory subject supports the diagnosis of Diabetes Mellitus. PERFORMED BY: [address] [place] [address] PATHOLOGIST NETWORK PROFESSIONAL FLIP GERMAN M.D. Performed By: #### G LULS #### Point of Care testing , Glucose [Mass/Vol] 184 mg/dL Normal [facility] Comment on above: Result Comment: [facility] Glucose Reference Range is dependent on time and content of last meal. Glucose of more than 200 mg/dL in a nonstressed, ambulatory subject supports the diagnosis of Diabetes Mellitus. PERFORMED BY: [facility] [address] [facility] [place] [address] PATHOLOGIST NETWORK PROFESSIONAL FLIP GERMAN M.D. Performed By: #### G LULS #### Point of Care testing , Prothrombin Time INRon 11-14 INR Coag (PPP) [Relative time] 2.2 {INR} Normal [facility] Comment on above: Order Comment: List [...] heart valves: 3 - 4.5 PERFORMED BY: [facility] [address] [place] [address] PATHOLOGIST NETWORK PROFESSIONAL FLIP GERMAN M.D. Performed By: #### G LULS #### Point of Care testing , PT Coag (PPP) [Time] 25.7 s High 9.0-12.9 [facility] Comment on above: Order Comment: List the anticoagulant: COUMADIN/WARFARIN Performed By: #### G LULS #### Point of Care testing , Glucose Glucometer (BldC) [M ass/Vol]Ordered By: Alcides Moya on 11-13-2021 Glucose [Mass/Vol] 146 mg/dL [facility] Comment on above: Random Glucose Refer ence Range is dependent on time and content of last meal. Glucose of more than 200 mg/dL in a nonstressed, ambulatory subject supports the diagnosis of Diabetes Mellitus. Glucose Poct Glucometerson 0 11-13-2021 Glucose [Mass/Vol] 146 mg/dL Normal [facility] Comment on above: Result Comment: [place] om Glucose Reference Range is dependent on time and content of last meal. Glucose of more than 200 mg/dL in a nonstressed, ambulatory subject supports the diagnosis of Diabetes Mellitus. PERFORMED BY: [facility] [address] [place] [address] PATHOLOGIST NETWORK PROFESSIONAL FLIP GERMAN M.D. Performed By: #### G LULS ####Point of Care testing, Commemt1 Glu2: Cleaned Meter Normal [facility] Comment on above: Result Comment: PERF ORMED BY: [facility] [address] [place] [address] PATHOLOGIST NETWORK PROFESSIONAL FLIP GERMAN M.D. Performed By: #### G LULS ####Point of Care testing, Glucose [Mass/Vol] 128 mg/dL Normal [facility] Comment on above: Result Comment: [place] om Glucose Reference Range is dependent on time and content of last meal. Glucose of more than 200 mg/dL in a nonstressed, ambulatory subject supports the diagnosis of Diabetes Mellitus. Performed By: #### G LULS ####Point of Care testing, Commemt1 Glu2: Cleaned Meter Normal [facility] Comment on above: Result Comment: PERF ORMED BY: [address] [place] [id number] PATHOLOGIST NETWORK PROFESSIONAL FLIP GERMAN M.D. Performed By: #### G LULS #### Point of Care testing , Glucose [Mass/Vol] 145 mg/dL Normal [facility] Comment on above: Result Comment: [place] om Glucose Reference Range is dependent on time and content of last meal. Glucose of more than 200 mg/dL in a nonstressed, ambulatory subject supports the diagnosis of Diabetes Mellitus. Performed By: #### G LULS #### Point of Care testing , Commemt1 Glu2: Cleaned Meter [facility] Comment on above: Result Comment: PERF ORMED BY: [address] [place] [id number] PATHOLOGIST NETWORK PROFESSIONAL FLIP GERMAN M.D. Performed By: #### G LULS #### Point of Care testing , Glucose [Mass/Vol] 122 mg/dL Normal [facility] Comment on above: Result Comment: [place] om Glucose Reference Range is dependent on time and content of last meal. Glucose of more than 200 mg/dL in a nonstressed, ambulatory subject supports the diagnosis of Diabetes Mellitus. Performed By: #### G LULS #### Point of Care testing , Glucose [Mass/Vol] 116 mg/dL Normal [facility] Comment on above: Result Comment: [place] om Glucose Reference Range is dependent on time and content of last meal. Glucose of more than 200 mg/dL in a nonstressed, ambulatory subject supports the diagnosis of Diabetes Mellitus. PERFORMED BY: [address] [place] [address] PATHOLOGIST NET[employer] PROFESSIONAL FLIP GERMAN M.D. Performed By: #### G IAN ####Point of Care testing, No Panel InformationOrdered By: Alcides Moya on 11-13-2021 Bedside Glucose Comment Glu2: cleaned meter [facility] Platelet poor plasma interna tional normalized ratio (INR) by coagulation assay (relatOrdered By: Alcides Moya on 11-13-2021 INR Coag (PPP) [Relative time] 2.6 {INR} Normal [facility] Comment on above: INR Therapeutic Rang [...] heart valves: 3 - 4.5 PERFORMED BY: [facility] [address] [place] [address] PATHOLOGIST NETWORK PROFESSIONAL FLIP GERMAN M.D. Performed By: #### P T ####[address] [address] [facility] Prothrombin Time INROrdered By: Alcides Moya on 11-13-2021 PT Coag (PPP) [Time] 29.5 s High 9.0-12.9 [facility] Comment on above: Order Comment: List the anticoagulant: COUMADIN/WARFARIN Performed By: #### P T ####[address] [address] [facility] Albumin [Mass/volume] in Ser um or PlasmaOrdered By: Alcides Moya on 11-12-2021 Albumin [Mass/Vol] 3.1 g/dL 3.2-5.5 [facility] Basophils Auto (Bld) [#/Vol] Ordered By: Alcides Moya on 11-12-2021 Basophils (Bld) [#/Vol] 0.0 10*3/uL 0.0-0.2 [facility] Basophils/100 WBC Auto (Bld) Ordered By: Alcides Moya on 11-12-2021 Basophils/100 WBC (Bld) 0.5 % . [facility] Blood hemoglobin measurement (mass/volume)Ordered By: Alcides Moya on 11-12-2021 Hemoglobin (Bld) [Mass/Vol] 12.5 g/dL 11.8-15.4 [facility] Blood leukocytes automated c ount (number/volume)Ordered By: Alcides Moya on 11-12-2021 WBC (Bld) [#/Vol] 5.0 10*3/uL 4.5-11.0 [facility] Complete Blood Count Auto Di ffon 11-12-2021 Basophils (Bld) [#/Vol] 0.0 10*3/uL Normal 0.0-0.2 [facility] Comment on above: Result Comment: PERF ORMED BY: [facility] [address] [place] [address] PATHOLOGIST NETWORK PROFESSIONAL FLIP GERMAN M.D. Performed By: #### G LULS #### Point of Care testing , Basophils/100 WBC (Bld) 0.5 % Normal . [facility] Comment on above: Performed By: #### G LULS #### Point of Care testing , Eosinophils (Bld) [#/Vol] 0.2 10*3/uL Normal 0.0-0.45 [facility] Comment on above: Performed By: #### G LULS #### Point of Care testing , Eosinophils/100 WBC (Bld) 3.8 % Normal . [facility] Comment on above: Performed By: #### G LULS #### Point of Care testing , Erythrocyte distribution width (RBC) [Ratio] 17.3 % High 11.9-15.3 [facility] Comment on above: Performed By: #### G GELACIOLS #### Point of Care testing , Hematocrit (Bld) [Volume fraction] 38.9 % Normal 34.0-46.4 [facility] Comment on above: Performed By: #### G GELACIOLS #### Point of Care testing , Hemoglobin (Bld) [Mass/Vol] 12.5 g/dL Normal 11.8-15.4 [facility] Comment on above: Performed By: #### G GELACIOLS #### Point of Care testing , Lymphocytes (Bld) [#/Vol] 2.0 10*3/uL Normal 1.00-4.8 [facility] Comment on above: Performed By: #### G GELACIOLS #### Point of Care testing , Lymphocytes/100 WBC (Bld) 39.7 % Normal . [facility] Comment on above: Performed By: #### G GELACIOLS #### Point of Care testing , MCH (RBC) [Entitic mass] 29.2 pg Normal 24.7-34.3 [facility] Comment on above: Performed By: #### G GELACIOLS #### Point of Care testing , MCV (RBC) [Entitic vol] 90.6 fL Normal 80-100 [facility] Comment on above: Performed By: #### G GELACIOLS #### Point of Care testing , Mean Corpuscular HGB Conc 32.2 g/dL Normal 32.0-35.0 [facility] Comment on above: Performed By: #### G IAN #### Point of Care testing , Monocytes (Bld) [#/Vol] 0.5 10*3/uL Normal 0.0-0.8 [facility] Comment on above: Performed By: #### G GELACIOLS #### Point of Care testing , Monocytes/100 WBC (Bld) 10.1 % Normal . [facility] Comment on above: Performed By: #### G GELACIOLS #### Point of Care testing , Neutrophils (Bld) [#/Vol] 2.3 10*3/uL Normal 1.8-7.7 [facility] Comment on above: Performed By: #### G LULS #### Point of Care testing , Neutrophils/100 WBC (Bld) 45.9 % Normal . [facility] Comment on above: Performed By: #### Ezra SOSA #### Point of Care testing , Nucleated RBC/100 WBC (Bld) [Ratio] 0.0 % Normal 0-0.5 [facility] Comment on above: Performed By: #### Ezra SOSA #### Point of Care testing , Platelet mean volume (Bld) [Entitic vol] 8.6 fL Normal 6.3-10.7 [facility] Comment on above: Performed By: #### Ezra SOSA #### Point of Care testing , Platelets (Bld) [#/Vol] 241 10*3/uL Normal 150-450 [facility] Comment on above: Performed By: #### Ezra SOSA #### Point of Care testing , RBC (Bld) [#/Vol] 4.29 10*6/uL Normal 3.60-5.00 [facility] Comment on above: Performed By: #### Ezra SOSA #### Point of Care testing , WBC (Bld) [#/Vol] 5.0 10*3/uL Normal 4.5-11.0 [facility] Comment on above: Performed By: #### Ezra SOSA #### Point of Care testing , Comprehensive Metabolic Pane loco 11-12-2021 Albumin [Mass/Vol] 3.1 g/dL Low 3.2-5.5 [facility] Comment on above: Performed By: #### Ezra SOSA #### Point of Care testing , Albumin/Globulin [Mass ratio] 0.8 {ratio} Normal [facility] Comment on above: Performed By: #### Ezra SOSA #### Point of Care testing , ALP [Catalytic activity/Vol] 84 U/L Normal 32-92 [facility] Comment on above: Performed By: #### Ezra SOSA #### Point of Care testing , ALT [Catalytic activity/Vol] 13 U/L Normal 10-60 [facility] Comment on above: Performed By: #### G LULS #### Point of Care testing , Anion gap [Moles/Vol] 11.9 mmol/L Normal 6.0-15.0 [facility] Comment on above: Performed By: #### G GELACIOLS #### Point of Care testing , AST [Catalytic activity/Vol] 22 U/L Normal 10-42 [facility] Comment on above: Performed By: #### G GELACIOLS #### Point of Care testing , Bilirubin [Mass/Vol] 0.8 mg/dL Normal 0.3-1.2 [facility] Comment on above: Performed By: #### G GELACIOLS #### Point of Care testing , Calcium [Mass/Vol] 9.2 mg/dL Normal 8.2-10.2 [facility] Comment on above: Performed By: #### G GELACIOLS #### Point of Care testing , Chloride [Moles/Vol] 100 mmol/L Normal 95-114 [facility] Comment on above: Performed By: #### G GELACIOLS #### Point of Care testing , CO2 [Moles/Vol] 31.0 mmol/L High 22.0-30.0 [facility] Comment on above: Performed By: #### G GELACIOLS #### Point of Care testing , Creatinine [Mass/Vol] 0.55 mg/dL Normal 0.44-1.03 [facility] Comment on above: Performed By: #### G GELACIOLS #### Point of Care testing , Creatinine Clr Calc Pharmacy 64.44 [facility] Comment on above: Performed By: #### G GELACIOLS #### Point of Care testing , Estimated GFR ( Trista > 60 [facility] Comment on above: Result Comment: GFR estimated reference range: According to KDOQI guidelines, <60 ml/min/1.73m2 is sufficient to diagnose a patient with chronic kidney disease. Performed By: #### G GELACIOLS #### Point of Care testing , Estimated GFR (Non- Am > 60 [facility] Comment on above: Performed By: #### G GELACIOLS #### Point of Care testing , Globulin (S) [Mass/Vol] 3.7 g/dL Normal [facility] Comment on above: Performed By: #### G LULS #### Point of Care testing , Glucose [Mass/Vol] 130 mg/dL High 70-100 [facility] Comment on above: Result Comment: [place] Glucose Reference Range is dependent on time and content of last meal. Glucose of more than 200 mg/dL in a nonstressed, ambulatory subject supports the diagnosis of Diabetes Mellitus. ADA recommended reference range Performed By: #### G LULS #### Point of Care testing , Potassium [Moles/Vol] 3.9 mmol/L Normal 3.5-5.1 [facility] Comment on above: Performed By: #### G LULS #### Point of Care testing , Protein [Mass/Vol] 6.8 g/dL Normal 6.1-7.9 [facility] Comment on above: Performed By: #### G LULS #### Point of Care testing , Sodium [Moles/Vol] 139 mmol/L Normal 136-146 [facility] Comment on above: Performed By: #### G LULS #### Point of Care testing , Urea nitrogen [Mass/Vol] 8 mg/dL Low 9-23 [facility] Comment on above: Performed By: #### G LULS #### Point of Care testing , Creatinine and Glomerular fi ltration rate.predicted panel (S/P/Bld)Ordered By: Alcides Moya on 11-12-2021 Creatinine [Mass/Vol] 0.55 mg/dL 0.44-1.03 [facility] Eosinophils Auto (Bld) [#/Vo l]Ordered By: Alcides Moya on 11-12-2021 Eosinophils (Bld) [#/Vol] 0.2 10*3/uL 0.0-0.45 [facility] Eosinophils/100 WBC Auto (Bl d)Ordered By: Alcides Moya on 11-12-2021 Eosinophils/100 WBC (Bld) 3.8 % . [facility] Erythrocyte distribution wid th Auto (RBC) [Ratio]Ordered By: Alcides Moya on 11-12-2021 Erythrocyte distribution width (RBC) [Ratio] 17.3 % 11.9-15.3 [facility] Estimated glomerular filtrat ion rate (GFR) non- AmericanOrdered By: Alcides Moya on 11-12-2021 GFR/1.73 sq M.predicted among non-blacks MDRD (S/P/Bld) [Vol rate/Area] > 60 mL/Min [facility] Globulin Calc (S) [Mass/Vol] Ordered By: Alcides Moya on 11-12-2021 Globulin (S) [Mass/Vol] 3.7 g/dL [facility] Glucose Glucometer (BldC) [M ass/Vol]Ordered By: Alcides Moya on 11-12-2021 Glucose [Mass/Vol] 212 mg/dL [facility] Comment on above: Random Glucose Refer ence Range is dependent on time and content of last meal. Glucose of more than 200 mg/dL in a nonstressed, ambulatory subject supports the diagnosis of Diabetes Mellitus. Glucose Poct Glucometerson 0 11-12-2021 Glucose [Mass/Vol] 212 mg/dL Normal [facility] Comment on above: Result Comment: [place] Glucose Reference Range is dependent on time and content of last meal. Glucose of more than 200 mg/dL in a nonstressed, ambulatory subject supports the diagnosis of Diabetes Mellitus. PERFORMED BY: [address] [address] PATHOLOGIST NETWORK PROFESSIONAL FLIP GERMAN M.D. Performed By: #### G LULS #### Point of Care testing , Glucose [Mass/Vol] 293 mg/dL Normal [facility] Comment on above: Result Comment: [place] Glucose Reference Range is dependent on time and content of last meal. Glucose of more than 200 mg/dL in a nonstressed, ambulatory subject supports the diagnosis of Diabetes Mellitus. PERFORMED BY: [facility] [address] [place] [address] PATHOLOGIST NETWORK PROFESSIONAL FLIP GERMAN M.D. Performed By: #### G LULS #### Point of Care testing , Commemt1 Glu2: Cleaned Meter Normal [facility] Comment on above: Result Comment: PERF ORMED BY: [facility] [address] [place] [address] PATHOLOGIST NETWORK PROFESSIONAL FLIP GERMAN M.D. Performed By: #### G LULS #### Point of Care testing , Glucose [Mass/Vol] 204 mg/dL Normal [facility] Comment on above: Result Comment: [place] om Glucose Reference Range is dependent on time and content of last meal. Glucose of more than 200 mg/dL in a nonstressed, ambulatory subject supports the diagnosis of Diabetes Mellitus. Performed By: #### G LULS #### Point of Care testing , Commemt1 Glu2: Cleaned Meter Normal [facility] Comment on above: Result Comment: PERF ORMED BY: [facility] [address] [place] [address] PATHOLOGIST NETWORK PROFESSIONAL FLIP GERMAN M.D. Performed By: #### G LULS #### Point of Care testing , Glucose [Mass/Vol] 188 mg/dL Normal [facility] Comment on above: Result Comment: Hospital [...] Hematocrit (Bld) [Volume fraction] 38.9 % 34.0-46.4 [facility] Laboratory - CoagulationOrde red By: Alcides Moya on 11-12-2021 PT Coag (PPP) [Time] 34.1 s 9.0-12.9 [facility] Laboratory - Hematology and Cell countsOrdered By: Alcides Moya on 11-12-2021 Nucleated RBC/100 WBC (Bld) [Ratio] 0.0 % 0-0.5 [facility] Lymphocytes Auto (Bld) [#/Vo l]Ordered By: Alcides Moya on 11-12-2021 Lymphocytes (Bld) [#/Vol] 2.0 10*3/uL 1.00-4.8 [facility] Lymphocytes/100 WBC Auto (Bl d)Ordered By: Alcides Moya on 11-12-2021 Lymphocytes/100 WBC (Bld) 39.7 % . [facility] MCH Auto (RBC) [Entitic mass ]Ordered By: Alcides Moya on 11-12-2021 MCH (RBC) [Entitic mass] 29.2 pg 24.7-34.3 [facility] MCHC Auto (RBC) [Mass/Vol]Or dered By: Alcides Moya on 11-12-2021 MCHC (RBC) [Mass/Vol] 32.2 g/dL 32.0-35.0 [facility] MCV Auto (RBC) [Entitic vol] Ordered By: Alcides Moya on 11-12-2021 MCV (RBC) [Entitic vol] 90.6 fL 80-100 [facility] Monocytes Auto (Bld) [#/Vol] Ordered By: Alcides Moya on 11-12-2021 Monocytes (Bld) [#/Vol] 0.5 10*3/uL 0.0-0.8 [facility] Monocytes/100 WBC Auto (Bld) Ordered By: Alcides Moya on 11-12-2021 Monocytes/100 WBC (Bld) 10.1 % . [facility] Neutrophils Auto (Bld) [#/Vo l]Ordered By: Alcides Moya on 11-12-2021 Neutrophils (Bld) [#/Vol] 2.3 10*3/uL 1.8-7.7 [facility] Neutrophils/100 WBC Auto (Bl d)Ordered By: Alcides Moya on 11-12-2021 Neutrophils/100 WBC (Bld) 45.9 % . [facility] No Panel InformationOrdered By: Alcides Moya on 11-12-2021 Bedside Glucose Comment Glu2: cleaned meter [facility] Estimated GFR () > 60 mL/Min [facility] Comment on above: GFR estimated refere nce range: According to KDOQI guidelines, <60 ml/min/1.73m2 is sufficient to diagnose a patient with chronic kidney disease. Pharmacy Creatinine Clearance (Chem 64.44 [facility] Platelet mean volume Auto (B ld) [Entitic vol]Ordered By: Alcides Moya on 11-12-2021 Platelet mean volume (Bld) [Entitic vol] 8.6 fL 6.3-10.7 [facility] Platelet poor plasma interna tional normalized ratio (INR) by coagulation assay (relatOrdered By: Alcides Moya on 11-12-2021 INR Coag (PPP) [Relative time] 3.0 {INR} [facility] Comment on above: INR Therapeutic Rang [...] 11-12-2021 Platelets (Bld) [#/Vol] 241 10*3/uL 150-450 [facility] Prealbuminon 11-12-2021 Prealbumin [Mass/Vol] 21.7 mg/dL Normal 18.0-38.0 [facility] Comment on above: Result Comment: PERF ORMED BY: [facility] [address] [place] [address] PATHOLOGIST NETWORK PROFESSIONAL FLIP GERMAN M.D. Performed By: #### G IAN #### Point of Care testing , Protein [Mass/volume] in Ser um or PlasmaOrdered By: Alcides Moya on 11-12-2021 Protein [Mass/Vol] 6.8 g/dL 6.1-7.9 [facility] Prothrombin Time INRon 11-12 INR Coag (PPP) [Relative time] 3.0 {INR} Normal [facility] Comment on above: Order Comment: List [...] heart valves: 3 - 4.5 PERFORMED BY: [facility] [address] PATHOLOGIST NETWORK PROFESSIONAL FLIP GERMAN M.D. Performed By: #### G IAN #### Point of Care testing , PT Coag (PPP) [Time] 34.1 s High 9.0-12.9 [facility] Comment on above: Order Comment: List the anticoagulant: COUMADIN/WARFARIN Performed By: #### G IAN #### Point of Care testing , RBC Auto (Bld) [#/Vol]Ordere d By: Alcides Moya on 11-12-2021 RBC (Bld) [#/Vol] 4.29 10*6/uL 3.60-5.00 [facility] Serum or plasma alanine engel otransferase measurement without P-5'-P (enzymatic activiOrdered By: Alcides Moya on 11-12-2021 ALT No additional P-5'-P [Catalytic activity/Vol] 13 U/L 10-60 [facility] Serum or plasma albumin/glob ulin mass ratioOrdered By: Alcides Moya on 11-12-2021 Albumin/Globulin [Mass ratio] 0.8 {ratio} [facility] Serum or plasma alkaline bouchra sphatase measurement (enzymatic activity/volume)Ordered By: Alcides Moya on 11-12-2021 ALP [Catalytic activity/Vol] 84 U/L 32-92 [facility] Serum or plasma anion gap de terminationOrdered By: Alcides Moya on 11-12-2021 Anion gap [Moles/Vol] 11.9 mmol/L 6.0-15.0 [facility] Serum or plasma aspartate am inotransferase measurement (enzymatic activity/volume)Ordered By: Alcides Moya on 11-12-2021 AST [Catalytic activity/Vol] 22 U/L 10-42 [facility] Serum or plasma calcium alondra urement (mass/volume)Ordered By: Alcides Moya on 11-12-2021 Calcium [Mass/Vol] 9.2 mg/dL 8.2-10.2 [facility] Serum or plasma chloride link surement (moles/volume)Ordered By: Alcides Moya on 11-12-2021 Chloride [Moles/Vol] 100 mmol/L 95-114 [facility] Serum or plasma glucose alondra urement (mass/volume)Ordered By: Alcides Moya on 11-12-2021 Glucose [Mass/Vol] 130 mg/dL 70-100 [facility] Comment on above: ADA recommended refe rence range Random Glucose Reference Range is dependent on time and content of last meal. Glucose of more than 200 mg/dL in a nonstressed, ambulatory subject supports the diagnosis of Diabetes Mellitus. Serum or plasma potassium me asurement (moles/volume)Ordered By: Alcides Moya on 11-12-2021 Potassium [Moles/Vol] 3.9 mmol/L 3.5-5.1 [facility] Serum or plasma prealbumin m easurement (mass/volume)Ordered By: Alcides Moya on 11-12-2021 Prealbumin [Mass/Vol] 21.7 mg/dL 18.0-38.0 [facility] Serum or plasma sodium measu rement (moles/volume)Ordered By: Alcides Moya on 11-12-2021 Sodium [Moles/Vol] 139 mmol/L 136-146 [facility] Serum or plasma total biliru bin measurement (mass/volume)Ordered By: Alcides Moya on 11-12-2021 Bilirubin [Mass/Vol] 0.8 mg/dL 0.3-1.2 [facility] Serum or plasma total carbon dioxide measurement (moles/volume)Ordered By: Alcides Moya on 11-12-2021 CO2 [Moles/Vol] 31.0 mmol/L 22.0-30.0 [facility] Serum or plasma urea nitroge n measurement (mass/volume)Ordered By: Alcides Moya on 11-12-2021 Urea nitrogen [Mass/Vol] 8 mg/dL 9-23 [facility] Glucose Glucometer (BldC) [M ass/Vol]Ordered By: Gaye Claire on 11-11-2021 Glucose [Mass/Vol] 127 mg/dL [facility] Comment on above: Random Glucose Refer ence Range is dependent on time and content of last meal. Glucose of more than 200 mg/dL in a nonstressed, ambulatory subject supports the diagnosis of Diabetes Mellitus. Glucose Poct Glucometerson 0 8-31-2022 Glucose [Mass/Vol] 168 mg/dL Normal [facility] Comment on above: Result Comment: [place] Glucose Reference Range is dependent on time and content of last meal. Glucose of more than 200 mg/dL in a nonstressed, ambulatory subject supports the diagnosis of Diabetes Mellitus. PERFORMED BY: [address] [place] [address] PATHOLOGIST NETWORK PROFESSIONAL FLIP GERMAN M.D. Performed By: #### G LULS #### Point of Care testing , Commemt1 Glu2: Cleaned Meter [facility] Comment on above: Result Comment: PERF ORMED BY: [address] [place] [address] PATHOLOGIST NET[employer] PROFESSIONAL FLIP GERMAN M.D. Performed By: #### G LULS #### Point of Care testing , Glucose [Mass/Vol] 127 mg/dL Normal [facility] Comment on above: Result Comment: [facility] Glucose Reference Range is dependent on time and content of last meal. Glucose of more than 200 mg/dL in a nonstressed, ambulatory subject supports the diagnosis of Diabetes Mellitus. Performed By: #### G LULS #### Point of Care testing , Commemt1 Glu2: Cleaned Meter [facility] Comment on above: Result Comment: PERF ORMED BY: [address] [place] [address] PATHOLOGIST NET[employer] PROFESSIONAL FLIP GERMAN M.D. Performed By: #### G LULS ####Point of Care testing, Glucose [Mass/Vol] 228 mg/dL Normal [facility] Comment on above: Result Comment: [place] Glucose Reference Range is dependent on time and content of last meal. Glucose of more than 200 mg/dL in a nonstressed, ambulatory subject supports the diagnosis of Diabetes Mellitus. Performed By: #### G LULS ####Point of Care testing, Commemt1 Glu2: Cleaned Meter [facility] Comment on above: Result Comment: PERF ORMED BY: [address] [address] PATHOLOGIST NET[employer] PROFESSIONAL FLIP GERMAN M.D. Performed By: #### G IAN #### Point of Care testing , Glucose [Mass/Vol] 150 mg/dL Normal [facility] Comment on above: Result Comment: [place] Glucose Reference Range is dependent on time and content of last meal. Glucose of more than 200 mg/dL in a nonstressed, ambulatory subject supports the diagnosis of Diabetes Mellitus. Performed By: #### G LULS #### Point of Care testing , Laboratory - CoagulationOrde red By: Enrrique Mota on 11-11-2021 PT Coag (PPP) [Time] 31.5 s 9.0-12.9 [facility] No Panel InformationOrdered By: Gaye Claire on 11-11-2021 Bedside Glucose Comment Glu2: cleaned meter [facility] Platelet poor plasma interna tional normalized ratio (INR) by coagulation assay (relatOrdered By: Enrrique Mota on 11-11-2021 INR Coag (PPP) [Relative time] 2.7 {INR} [facility] Comment on above: INR Therapeutic Rang [...] Coag (PPP) [Relative time] 2.7 {INR} Normal [facility] Comment on above: Result [...] heart valves: 3 - 4.5 PERFORMED BY: [address] [place] [id number] PATHOLOGIST NETWORK PROFESSIONAL FLIP GERMAN M.D. Performed By: #### G LULS #### Point of Care testing , PT Coag (PPP) [Time] 31.5 s High 9.0-12.9 [facility] Comment on above: Performed By: #### G LULS #### Point of Care testing , Glucose Poct Glucometerson 0 11-10-2021 Glucose [Mass/Vol] 124 mg/dL Normal [facility] Comment on above: Result Comment: [place] om Glucose Reference Range is dependent on time and content of last meal. Glucose of more than 200 mg/dL in a nonstressed, ambulatory subject supports the diagnosis of Diabetes Mellitus. PERFORMED BY: [address] [place] [address] PATHOLOGIST NETWORK PROFESSIONAL FLIP GERMAN M.D. Performed By: #### G LULS #### Point of Care testing , Commemt1 Glu2: Cleaned Meter [facility] Comment on above: Result Comment: PERF ORMED BY: [address] [place] [address] PATHOLOGIST NETWORK PROFESSIONAL FLIP GERMAN M.D. Performed By: #### G LULS #### Point of Care testing , Glucose [Mass/Vol] 143 mg/dL Normal [facility] Comment on above: Result Comment: [place] om Glucose Reference Range is dependent on time and content of last meal. Glucose of more than 200 mg/dL in a nonstressed, ambulatory subject supports the diagnosis of Diabetes Mellitus. Performed By: #### G LULS #### Point of Care testing , Commemt1 Glu2: Cleaned Meter [facility] Comment on above: Result Comment: PERF ORMED BY: [address] [place] [address] PATHOLOGIST NET[employer] PROFESSIONAL FLIP GERMAN M.D. Performed By: #### G LULS #### Point of Care testing , Glucose [Mass/Vol] 190 mg/dL Normal [facility] Comment on above: Result Comment: [place] om Glucose Reference Range is dependent on time and content of last meal. Glucose of more than 200 mg/dL in a nonstressed, ambulatory subject supports the diagnosis of Diabetes Mellitus. Performed By: #### G LULS #### Point of Care testing , Commemt1 Glu2: Cleaned Meter Normal [facility] Comment on above: Result Comment: PERF ORMED BY: [facility] [address] [facility] [address] [place] [address] PATHOLOGIST NET[employer] PROFESSIONAL FLIP GERMAN M.D. Performed By: #### G LULS #### Point of Care testing , Glucose [Mass/Vol] 136 mg/dL Normal [facility] Comment on above: Result Comment: [place] om Glucose Reference Range is dependent on time and content of last meal. Glucose of more than 200 mg/dL in a nonstressed, ambulatory subject supports the diagnosis of Diabetes Mellitus. Performed By: #### G LULS #### Point of Care testing , Prothrombin Time INRon 11-10 INR Coag (PPP) [Relative time] 2.5 {INR} Normal [facility] Comment on above: Result [...] heart valves: 3 - 4.5 PERFORMED BY: [facility] [address] [place] [address] PATHOLOGIST NET[employer] PROFESSIONAL FLIP GERMAN M.D. Performed By: #### G LULS #### Point of Care testing , PT Coag (PPP) [Time] 28.4 s High 9.0-12.9 [facility] Comment on above: Performed By: #### G LULS #### Point of Care testing , Glucose Poct Glucometerson 0 11-09-2021 Commemt1 Glu2: Cleaned Meter Normal [facility] Comment on above: Result Comment: PERF ORMED BY: [address] [place] [address] PATHOLOGIST NETWORK PROFESSIONAL FLIP GERMAN M.D. Performed By: #### G LULS #### Point of Care testing , Glucose [Mass/Vol] 165 mg/dL Normal [facility] Comment on above: Result Comment: [place] om Glucose Reference Range is dependent on time and content of last meal. Glucose of more than 200 mg/dL in a nonstressed, ambulatory subject supports the diagnosis of Diabetes Mellitus. Performed By: #### G LULS #### Point of Care testing , Commemt1 Glu2: Cleaned Meter Normal [facility] Comment on above: Result Comment: PERF ORMED BY: [place] [address] PATHOLOGIST NETWORK PROFESSIONAL FLIP GERMAN M.D. Performed By: #### G LULS #### Point of Care testing , Glucose [Mass/Vol] 156 mg/dL Normal [facility] Comment on above: Result Comment: [place] om Glucose Reference Range is dependent on time and content of last meal. Glucose of more than 200 mg/dL in a nonstressed, ambulatory subject supports the diagnosis of Diabetes Mellitus. Performed By: #### G LULS #### Point of Care testing , Glucose [Mass/Vol] 257 mg/dL Normal [facility] Comment on above: Result Comment: [place] om Glucose Reference Range is dependent on time and content of last meal. Glucose of more than 200 mg/dL in a nonstressed, ambulatory subject supports the diagnosis of Diabetes Mellitus. PERFORMED BY: [place] [id number] PATHOLOGIST NETWORK PROFESSIONAL FLIP GERMAN M.D. Performed By: #### G LULS #### Point of Care testing , Glucose [Mass/Vol] 142 mg/dL Normal [facility] Comment on above: Result Comment: [facility] Glucose Reference Range is dependent on time and content of last meal. Glucose of more than 200 mg/dL in a nonstressed, ambulatory subject supports the diagnosis of Diabetes Mellitus. PERFORMED BY: [address] [place] [id number] PATHOLOGIST NETWORK PROFESSIONAL FLIP GERMAN M.D. Performed By: #### G LULS #### Point of Care testing , Prothrombin Time INRon 11-09 INR Coag (PPP) [Relative time] 2.7 {INR} Normal [facility] Comment on above: Result [...] heart valves: 3 - 4.5 PERFORMED BY: [facility] [address] [place] [id number] PATHOLOGIST NETWORK PROFESSIONAL FLIP GERMAN M.D. Performed By: #### G LULS #### Point of Care testing , PT Coag (PPP) [Time] 30.5 s High 9.0-12.9 [facility] Comment on above: Performed By: #### G LULS #### Point of Care testing , Glucose Poct Glucometerson 0 11-08-2021 Glucose [Mass/Vol] 180 mg/dL Normal [facility] Comment on above: Result Comment: [facility] Glucose Reference Range is dependent on time and content of last meal. Glucose of more than 200 mg/dL in a nonstressed, ambulatory subject supports the diagnosis of Diabetes Mellitus. PERFORMED BY: [address] [place] [address] PATHOLOGIST NETWORK PROFESSIONAL FLIP GERMAN M.D. Performed By: #### G LULS #### Point of Care testing , Glucose [Mass/Vol] 161 mg/dL Normal [facility] Comment on above: Result Comment: [facility] Glucose Reference Range is dependent on time and content of last meal. Glucose of more than 200 mg/dL in a nonstressed, ambulatory subject supports the diagnosis of Diabetes Mellitus. PERFORMED BY: [place] [address] [place] [address] PATHOLOGIST NETWORK PROFESSIONAL FLIP GERMAN M.D. Performed By: #### G LULS #### Point of Care testing , Glucose [Mass/Vol] 193 mg/dL Normal [facility] Comment on above: Result Comment: [facility] Glucose Reference Range is dependent on time and content of last meal. Glucose of more than 200 mg/dL in a nonstressed, ambulatory subject supports the diagnosis of Diabetes Mellitus. PERFORMED BY: [place] [address] [place] [address] PATHOLOGIST NETWORK PROFESSIONAL FLIP GERMAN M.D. Performed By: #### G LULS #### Point of Care testing , Commemt1 Glu2: Cleaned Meter Normal [facility] Comment on above: Result Comment: PERF ORMED BY: [place] [address] [place] [address] PATHOLOGIST NETWORK PROFESSIONAL FLIP GERMAN M.D. Performed By: #### G LULS #### Point of Care testing , Glucose [Mass/Vol] 155 mg/dL Normal [facility] Comment on above: Result Comment: [place] Glucose Reference Range is dependent on time and content of last meal. Glucose of more than 200 mg/dL in a nonstressed, ambulatory subject supports the diagnosis of Diabetes Mellitus. Performed By: #### G LULS #### Point of Care testing , Prothrombin Time INRon 11-08 INR Coag (PPP) [Relative time] 2.9 {INR} Normal [facility] Comment on above: Result [...] heart valves: 3 - 4.5 PERFORMED BY: [address] [place] [id number] PATHOLOGIST NETWORK PROFESSIONAL FLIP GERMAN M.D. Performed By: #### G LULS #### Point of Care testing , PT Coag (PPP) [Time] 33.0 s High 9.0-12.9 [facility] Comment on above: Performed By: #### G LULS #### Point of Care testing , Glucose Poct Glucometerson 0 11-07-2021 Commemt1 Glu2: Cleaned Meter [facility] Comment on above: Result Comment: PERF ORMED BY: [facility] [address] [facility] [place] [id number] PATHOLOGIST NETWORK PROFESSIONAL FLIP GERMAN M.D. Performed By: #### G LULS #### Point of Care testing , Glucose [Mass/Vol] 183 mg/dL Normal [facility] Comment on above: Result Comment: [place] Glucose Reference Range is dependent on time and content of last meal. Glucose of more than 200 mg/dL in a nonstressed, ambulatory subject supports the diagnosis of Diabetes Mellitus. Performed By: #### G LULS #### Point of Care testing , Commemt1 Glu2: Cleaned Meter [facility] Comment on above: Result Comment: PERF ORMED BY: [address] [place] [address] PATHOLOGIST NETWORK PROFESSIONAL FLIP GERMAN M.D. Performed By: #### G LULS #### Point of Care testing , Glucose [Mass/Vol] 154 mg/dL Normal [facility] Comment on above: Result Comment: [place] Glucose Reference Range is dependent on time and content of last meal. Glucose of more than 200 mg/dL in a nonstressed, ambulatory subject supports the diagnosis of Diabetes Mellitus. Performed By: #### G LULS #### Point of Care testing , Commemt1 Glu2: Cleaned Meter [facility] Comment on above: Result Comment: PERF ORMED BY: [address] [place] [id number] PATHOLOGIST NETWORK PROFESSIONAL FLIP GERMAN M.D. Performed By: #### G LULS #### Point of Care testing , Glucose [Mass/Vol] 339 mg/dL Normal [facility] Comment on above: Result Comment: [place] om Glucose Reference Range is dependent on time and content of last meal. Glucose of more than 200 mg/dL in a nonstressed, ambulatory subject supports the diagnosis of Diabetes Mellitus. Performed By: #### G LULS #### Point of Care testing , Glucose [Mass/Vol] 146 mg/dL Normal [facility] Comment on above: Result Comment: [place] om Glucose Reference Range is dependent on time and content of last meal. Glucose of more than 200 mg/dL in a nonstressed, ambulatory subject supports the diagnosis of Diabetes Mellitus. PERFORMED BY: [facility] [address] [place] [address] PATHOLOGIST NETWORK PROFESSIONAL FLIP GERMAN M.D. Performed By: #### G LULS #### Point of Care testing , Prothrombin Time INRon 11-07 INR Coag (PPP) [Relative time] 2.0 {INR} Normal [facility] Comment on above: Result [...] heart valves: 3 - 4.5 PERFORMED BY: [facility] [address] [place] [address] PATHOLOGIST NETWORK PROFESSIONAL FLIP GERMAN M.D. Performed By: #### G LULS #### Point of Care testing , PT Coag (PPP) [Time] 22.8 s High 9.0-12.9 [facility] Comment on above: Performed By: #### G LULS #### Point of Care testing , Basic Metabolic Panelon 10-13 Calcium [Mass/Vol] 9.1 mg/dL Normal 8.2-10.2 [facility] Comment on above: Performed By: #### G LULS #### Point of Care testing , Chloride [Moles/Vol] 98 mmol/L Normal 95-114 [facility] Comment on above: Performed By: #### G LULS #### Point of Care testing , CO2 [Moles/Vol] 33.3 mmol/L High 22.0-30.0 [facility] Comment on above: Performed By: #### G LULS #### Point of Care testing , Creatinine [Mass/Vol] 0.63 mg/dL Normal 0.44-1.03 [facility] Comment on above: Performed By: #### G LULS #### Point of Care testing , Creatinine Clr Calc Pharmacy 65.08 [facility] Comment on above: Result Comment: PERF ORMED BY: [facility] [address] [place] [address] PATHOLOGIST NETWORK PROFESSIONAL FLIP GERMAN M.D. Performed By: #### G LULS #### Point of Care testing , Estimated GFR ( Trista > 60 [facility] Comment on above: Result Comment: GFR estimated reference range: According to KDOQI guidelines, <60 ml/min/1.73m2 is sufficient to diagnose a patient with chronic kidney disease. Performed By: #### G LULS #### Point of Care testing , Estimated GFR (Non- Am > 60 [facility] Comment on above: Performed By: #### G LULS #### Point of Care testing , Glucose [Mass/Vol] 159 mg/dL High 70-100 [facility] Comment on above: Result Comment: [place] om Glucose Reference Range is dependent on time and content of last meal. Glucose of more than 200 mg/dL in a nonstressed, ambulatory subject supports the diagnosis of Diabetes Mellitus. ADA recommended reference range Performed By: #### G LULS #### Point of Care testing , Potassium [Moles/Vol] 3.3 mmol/L Low 3.5-5.1 [facility] Comment on above: Performed By: #### G LULS #### Point of Care testing , Sodium [Moles/Vol] 140 mmol/L Normal 136-146 [facility] Comment on above: Performed By: #### G LULS #### Point of Care testing , Urea nitrogen [Mass/Vol] 6 mg/dL Low 9-23 [facility] Comment on above: Performed By: #### G LULS #### Point of Care testing , Basophils Auto (Bld) [#/Vol] Ordered By: Faustina Barr on 11-06-2021 Basophils (Bld) [#/Vol] 0.0 10*3/uL 0.0-0.2 [facility] Basophils/100 WBC Auto (Bld) Ordered By: Faustina Barr on 11-06-2021 Basophils/100 WBC (Bld) 0.5 % . [facility] Blood hemoglobin measurement (mass/volume)Ordered By: Faustina Barr on 11-06-2021 Hemoglobin (Bld) [Mass/Vol] 11.8 g/dL 11.8-15.4 [facility] Blood leukocytes automated c ount (number/volume)Ordered By: Faustina Barr on 11-06-2021 WBC (Bld) [#/Vol] 5.6 10*3/uL 4.5-11.0 [facility] Complete Blood Count Auto Di ffon 11-06-2021 Basophils (Bld) [#/Vol] 0.0 10*3/uL Normal 0.0-0.2 [facility] Comment on above: Result Comment: PERF ORMED BY: [facility] [address] [place] [address] PATHOLOGIST NETWORK PROFESSIONAL FLIP GERMAN M.D. Performed By: #### G GELACIOLS #### Point of Care testing , Basophils/100 WBC (Bld) 0.5 % Normal . [facility] Comment on above: Performed By: #### G LULS #### Point of Care testing , Eosinophils (Bld) [#/Vol] 0.2 10*3/uL Normal 0.0-0.45 [facility] Comment on above: Performed By: #### G LULS #### Point of Care testing , Eosinophils/100 WBC (Bld) 3.9 % Normal . [facility] Comment on above: Performed By: #### Ezra BRIZUELALS #### Point of Care testing , Erythrocyte distribution width (RBC) [Ratio] 16.6 % High 11.9-15.3 [facility] Comment on above: Performed By: #### Ezra BRIZUELALS #### Point of Care testing , Hematocrit (Bld) [Volume fraction] 37.0 % Normal 34.0-46.4 [facility] Comment on above: Performed By: #### G GELACIOLS #### Point of Care testing , Hemoglobin (Bld) [Mass/Vol] 11.8 g/dL Normal 11.8-15.4 [facility] Comment on above: Performed By: #### G IAN #### Point of Care testing , Lymphocytes (Bld) [#/Vol] 2.1 10*3/uL Normal 1.00-4.8 [facility] Comment on above: Performed By: #### Ezra BRIZUELALS #### Point of Care testing , Lymphocytes/100 WBC (Bld) 37.6 % Normal . [facility] Comment on above: Performed By: #### Ezra SOSA #### Point of Care testing , MCH (RBC) [Entitic mass] 28.8 pg Normal 24.7-34.3 [facility] Comment on above: Performed By: #### Ezra SOSA #### Point of Care testing , MCV (RBC) [Entitic vol] 90.5 fL Normal 80-100 [facility] Comment on above: Performed By: #### G IAN #### Point of Care testing , Mean Corpuscular HGB Conc 31.9 g/dL Low 32.0-35.0 [facility] Comment on above: Performed By: #### Ezra BRIZUELALS #### Point of Care testing , Monocytes (Bld) [#/Vol] 0.7 10*3/uL Normal 0.0-0.8 [facility] Comment on above: Performed By: #### Ezra SOSA #### Point of Care testing , Monocytes/100 WBC (Bld) 12.7 % Normal . [facility] Comment on above: Performed By: #### G LULS #### Point of Care testing , Neutrophils (Bld) [#/Vol] 2.5 10*3/uL Normal 1.8-7.7 [facility] Comment on above: Performed By: #### G LULS #### Point of Care testing , Neutrophils/100 WBC (Bld) 45.3 % Normal . [facility] Comment on above: Performed By: #### G LULS #### Point of Care testing , Nucleated RBC/100 WBC (Bld) [Ratio] 0.1 % Normal 0-0.5 [facility] Comment on above: Performed By: #### G LULS #### Point of Care testing , Platelet mean volume (Bld) [Entitic vol] 8.3 fL Normal 6.3-10.7 [facility] Comment on above: Performed By: #### G LULS #### Point of Care testing , Platelets (Bld) [#/Vol] 298 10*3/uL Normal 150-450 [facility] Comment on above: Performed By: #### G GELACIOLS #### Point of Care testing , RBC (Bld) [#/Vol] 4.09 10*6/uL Normal 3.60-5.00 [facility] Comment on above: Performed By: #### G GELACIOLS #### Point of Care testing , WBC (Bld) [#/Vol] 5.6 10*3/uL Normal 4.5-11.0 [facility] Comment on above: Performed By: #### G LULS #### Point of Care testing , Creatinine and Glomerular fi ltration rate.predicted panel (S/P/Bld)Ordered By: Faustina Barr on 11-06-2021 Creatinine [Mass/Vol] 0.63 mg/dL 0.44-1.03 [facility] Eosinophils Auto (Bld) [#/Vo l]Ordered By: Faustina Barr on 11-06-2021 Eosinophils (Bld) [#/Vol] 0.2 10*3/uL 0.0-0.45 [facility] Eosinophils/100 WBC Auto (Bl d)Ordered By: Faustina Barr on 11-06-2021 Eosinophils/100 WBC (Bld) 3.9 % . [facility] Erythrocyte distribution wid th Auto (RBC) [Ratio]Ordered By: Faustina Barr on 11-06-2021 Erythrocyte distribution width (RBC) [Ratio] 16.6 % 11.9-15.3 [facility] Estimated glomerular filtrat ion rate (GFR) non- AmericanOrdered By: Faustina Barr on 11-06-2021 GFR/1.73 sq M.predicted among non-blacks MDRD (S/P/Bld) [Vol rate/Area] > 60 mL/Min [facility] Glucose Poct Glucometerson 0 11-06-2021 Commemt1 Glu2: Cleaned Meter [facility] Comment on above: Result Comment: PERF ORMED BY: [place] [address] PATHOLOGIST NETWORK PROFESSIONAL FLIP GERMAN M.D. Performed By: #### G LULS #### Point of Care testing , Glucose [Mass/Vol] 175 mg/dL Normal [facility] Comment on above: Result Comment: [facility] Glucose Reference Range is dependent on time and content of last meal. Glucose of more than 200 mg/dL in a nonstressed, ambulatory subject supports the diagnosis of Diabetes Mellitus. Performed By: #### G LULS #### Point of Care testing , Commemt1 Glu2: Cleaned Meter [facility] Comment on above: Result Comment: PERF ORMED BY: [facility] [address] [facility] [place] [address] PATHOLOGIST NETWORK PROFESSIONAL FLIP GERMAN M.D. Performed By: #### G LULS #### Point of Care testing , Glucose [Mass/Vol] 141 mg/dL Normal [facility] Comment on above: Result Comment: [facility] Glucose Reference Range is dependent on time and content of last meal. Glucose of more than 200 mg/dL in a nonstressed, ambulatory subject supports the diagnosis of Diabetes Mellitus. Performed By: #### G LULS #### Point of Care testing , Glucose [Mass/Vol] 171 mg/dL Normal [facility] Comment on above: Result Comment: [facility] Glucose Reference Range is dependent on time and content of last meal. Glucose of more than 200 mg/dL in a nonstressed, ambulatory subject supports the diagnosis of Diabetes Mellitus. PERFORMED BY: [facility] [address] [facility] [place] [address] PATHOLOGIST NETWORK PROFESSIONAL FLIP GERMAN M.D. Performed By: #### G LULS #### Point of Care testing , Glucose [Mass/Vol] 139 mg/dL Normal [facility] Comment on above: Result Comment: [facility] Glucose Reference Range is dependent on time and content of last meal. Glucose of more than 200 mg/dL in a nonstressed, ambulatory subject supports the diagnosis of Diabetes Mellitus. PERFORMED BY: [facility] [address] [place] [address] PATHOLOGIST NETWORK PROFESSIONAL FLIP GERMAN M.D. Performed By: #### G LULS #### Point of Care testing , Hematocrit Auto (Bld) [Volum e fraction]Ordered By: Faustina Barr on 11-06-2021 Hematocrit (Bld) [Volume fraction] 37.0 % 34.0-46.4 [facility] Laboratory - Hematology and Cell countsOrdered By: Faustina Barr on 11-06-2021 Nucleated RBC/100 WBC (Bld) [Ratio] 0.1 % 0-0.5 [facility] Lymphocytes Auto (Bld) [#/Vo l]Ordered By: Faustina Barr on 11-06-2021 Lymphocytes (Bld) [#/Vol] 2.1 10*3/uL 1.00-4.8 [facility] Lymphocytes/100 WBC Auto (Bl d)Ordered By: Faustina Barr on 11-06-2021 Lymphocytes/100 WBC (Bld) 37.6 % . [facility] MCH Auto (RBC) [Entitic mass ]Ordered By: Faustina Barr on 11-06-2021 MCH (RBC) [Entitic mass] 28.8 pg 24.7-34.3 [facility] MCHC Auto (RBC) [Mass/Vol]Or dered By: Faustina Barr on 11-06-2021 MCHC (RBC) [Mass/Vol] 31.9 g/dL 32.0-35.0 [facility] MCV Auto (RBC) [Entitic vol] Ordered By: Faustina Barr on 11-06-2021 MCV (RBC) [Entitic vol] 90.5 fL 80-100 [facility] Monocytes Auto (Bld) [#/Vol] Ordered By: Faustina Barr on 11-06-2021 Monocytes (Bld) [#/Vol] 0.7 10*3/uL 0.0-0.8 [facility] Monocytes/100 WBC Auto (Bld) Ordered By: Faustina Barr on 11-06-2021 Monocytes/100 WBC (Bld) 12.7 % . [facility] Neutrophils Auto (Bld) [#/Vo l]Ordered By: Faustina Barr on 11-06-2021 Neutrophils (Bld) [#/Vol] 2.5 10*3/uL 1.8-7.7 [facility] Neutrophils/100 WBC Auto (Bl d)Ordered By: Faustina Barr on 11-06-2021 Neutrophils/100 WBC (Bld) 45.3 % . [facility] No Panel InformationOrdered By: Faustina Barr on 11-06-2021 Estimated GFR () > 60 mL/Min [facility] Comment on above: GFR estimated refere nce range: According to KDOQI guidelines, <60 ml/min/1.73m2 is sufficient to diagnose a patient with chronic kidney disease. Pharmacy Creatinine Clearance (Chem 65.08 [facility] Platelet mean volume Auto (B ld) [Entitic vol]Ordered By: Faustina Barr on 11-06-2021 Platelet mean volume (Bld) [Entitic vol] 8.3 fL 6.3-10.7 [facility] Platelets Auto (Bld) [#/Vol] Ordered By: Faustina Barr on 11-06-2021 Platelets (Bld) [#/Vol] 298 10*3/uL 150-450 [facility] Prothrombin Time INRon 11-06 INR Coag (PPP) [Relative time] 1.3 {INR} Normal [facility] Comment on above: Result [...] heart valves: 3 - 4.5 PERFORMED BY: [facility] [place] [address] PATHOLOGIST NETWORK PROFESSIONAL FLIP GERMAN M.D. Performed By: #### G LULS #### Point of Care testing , PT Coag (PPP) [Time] 14.4 s High 9.0-12.9 [facility] Comment on above: Performed By: #### G LULS #### Point of Care testing , RBC Auto (Bld) [#/Vol]Ordere d By: Faustina Barr on 11-06-2021 RBC (Bld) [#/Vol] 4.09 10*6/uL 3.60-5.00 [facility] Serum or plasma calcium alondra urement (mass/volume)Ordered By: Faustina Barr on 11-06-2021 Calcium [Mass/Vol] 9.1 mg/dL 8.2-10.2 [facility] Serum or plasma chloride link surement (moles/volume)Ordered By: Faustina Barr on 11-06-2021 Chloride [Moles/Vol] 98 mmol/L 95-114 [facility] Serum or plasma glucose alondra urement (mass/volume)Ordered By: Faustina Barr on 11-06-2021 Glucose [Mass/Vol] 159 mg/dL 70-100 [facility] Comment on above: ADA recommended refe [...] on 11-06-2021 Potassium [Moles/Vol] 3.3 mmol/L 3.5-5.1 [facility] Serum or plasma sodium measu rement (moles/volume)Ordered By: Faustina Barr on 11-06-2021 Sodium [Moles/Vol] 140 mmol/L 136-146 [facility] Serum or plasma total carbon dioxide measurement (moles/volume)Ordered By: Faustina Barr on 11-06-2021 CO2 [Moles/Vol] 33.3 mmol/L 22.0-30.0 [facility] Serum or plasma urea nitroge n measurement (mass/volume)Ordered By: Faustina Barr on 11-06-2021 Urea nitrogen [Mass/Vol] 6 mg/dL 9- [facility] Urine culture routineOrdered By: Marvin Peter on 11-06-2021 Bacteria identified Cx Nom (U) Escherichia coli [facility] Glucose Poct Glucometerson 0 11-05-2021 Commemt1 Glu2: Cleaned Meter Normal [facility] Comment on above: Result Comment: PERF ORMED BY: [place] [address] PATHOLOGIST NETWORK PROFESSIONAL FLIP GERMAN M.D. Performed By: #### G LULS #### Point of Care testing , Glucose [Mass/Vol] 202 mg/dL Normal [facility] Comment on above: Result Comment: [place] Glucose Reference Range is dependent on time and content of last meal. Glucose of more than 200 mg/dL in a nonstressed, ambulatory subject supports the diagnosis of Diabetes Mellitus. Performed By: #### G LULS #### Point of Care testing , MR lumbar spine wo conon MR lumbar spine wo con [facility] [place] [address] [place] [address] MRI Report Signed Patient: Alton Barker MR#: [id number] : 1940 Acct:[id number] Age/Sex: 81 / F ADM Date: 11/04/21 Loc: 3T Room: 4I0159-1 Type: ADM INOo Attending Dr: Enrrique Mota [...] Vijay Holden M.D.11/05/2021 12:14 PM Dictation Location: [place] [address] Transcribed By: [facility] 11/05/21 1214 Dictated By: Vijay Holden II, MD 11/05/21 1209 Signed By: 11/05/21 1214 Normal [facility] Prothrombin Time INRon 11-05 INR Coag (PPP) [Relative time] 1.8 {INR} [facility] Comment on above: Result Comment: INR Therapeutic [...] valves: 3 - 4.5 PERFORMED BY: [address] [address] PATHOLOGIST NETWORK PROFESSIONAL FLIP GERMAN M.D. Performed By: #### G IAN #### Point of Care testing , PT Coag (PPP) [Time] 20.0 s High 9.0-12.9 [facility] Comment on above: Performed By: #### G IAN #### Point of Care testing , Albumin [Mass/volume] in Ser um or PlasmaOrdered By: Marvin Peter on 11-04-2021 Albumin [Mass/Vol] 3.4 g/dL 3.2-5.5 [facility] Automated erythrocytes count in urine sediment (number/area)Ordered By: Marvin Peter on 11-04-2021 RBC Auto (Urine sed) [#/Area] Innumerable [HPF] 0-4 [facility] Automated leukocytes count i n urine sediment (number/area)Ordered By: Marvin Peter on 11-04-2021 WBC Auto (Urine sed) [#/Area] 50-100 [HPF] 0-4 [facility] Automated urine hyaline cast s count (number/volume)Ordered By: Marvin Peter on 11-04-2021 Hyaline casts Auto (U) [#/Vol] Rare [LPF] 0-1 [facility] Bilirubin Test strip Ql (U)O rdered By: Marvin Peter on 11-04-2021 Bilirubin Ql (U) Negative Negative [facility] COVID CepheidOrdered By: Artie Peter on 11-04-2021 SARS-CoV-2 (COVID-19) Ab IA Ql Negative Negative [facility] Comment on above: This is a duplicate [employer]ep[employer] Xpert Xpress CoV-2/Flu/RSV Plus RNA by RT-PCR result to be used for statistical tracking purpose only. SARS-CoV-2 (COVID-19) RNA PIPE+probe Ql (Unsp spec) [facility] COVID-19 / Flu A/B / RSV [...] or [employer]ep[employer] Disclaimer revoked sooner. PERFORMED BY: [address] [place] [address] PATHOLOGIST NETWORK PROFESSIONAL FLIP GERMAN M.D. [facility] Comment on above: Performed By: [...] developed and its performance characteristic determined by [employer] and validated at [facility]. This test has not been FDA [...] for SARS Antigen by [facility] PERFORMED BY: [place] [address] PATHOLOGIST NETWORK PROFESSIONAL FLIP GERMAN M.D. Normal [facility] Comment on above: Performed By: #### G LULS #### Point of Care testing , COVID-19 SOFIAOrdered By: Sina Peter on 11-04-2021 SARS-CoV+SARS-CoV-2 (COVID-19) Ag IA.rapid Ql (Resp) Negative Negative [facility] Comment on above: This is a duplicate Evita SARS Antigen ([facility]) result to be used for statistical tracking purpose only. CT cervical spine wo conon 0 11-04-2021 CT cervical spine wo con [facility] [address] [address] [address] Scan Report Signed Patient: Alton Barker MR#: [id number] 987 : 1940 Acct:[id number] Age/Sex: 81 / F ADM Date: 11/04/21 Loc: ER Room: Type: [facility] ER Attending Dr: Copies to: Marvin [...] Baltazar Saucedo M.D.11/04/2021 5:55 PM Dictation Location: [place] [address] Transcribed By: [facility] 11/04/211754 Dictated By: Baltazar Saucedo DO 11/04/211752 Signed By: 11/04/211754 Normal [facility] CT head/brain wo conon 11-04 CT head/brain wo con [place] [address] CT Scan Report Signed Patient: Alton Barker MR#: [id number] 987 : 1940 Acct:[id number] Age/Sex: 81 / F ADM Date: 11/04/21 Loc: ER Room: Type: [facility] ER Attending Dr: Copies to: Marvin [...] Baltazar Saucedo M.D.11/04/2021 5:52 PM Dictation Location: [place] [address] Transcribed By: [facility] 11/04/211751 Dictated By: Baltazar Saucedo DO 11/04/211747 Signed By: 11/04/211751 Normal [facility] CT lumbar spine wo conon CT lumbar spine wo con [facility] [place] [address] [place] [address] CT Scan Report Signed Patient: Alton Barker MR#: [id number] 987 : 1940 Acct:[id number] Age/Sex: 81 / F ADM Date: 11/04/21 Loc: ER Room: Type: [facility] ER Attending Dr: Copies to: Marvin [...] Baltazar Saucedo M.D.11/04/2021 6:06 PM Dictation Location: [facility] Transcribed By: SHERINE 11/04/211805 Dictated By: Baltazar Saucedo DO 11/04/21 180 Signed By: 11/04/21 180 [facility] [address] thoracic spine wo conon 0 11-04-2021 CT thoracic spine wo con [facility] Main [place] [address] [place] [address] CT Scan Report Signed Patient: Alton Barker MR#: [id number] 987 : 1940 Acct:[id number] Age/Sex: 81 / F ADM Date: 11/04/21 Loc: ER Room: Type: [facility] ER Attending Dr: Copies to: Marvin [...] Baltazar Saucedo M.D.11/04/2021 6:00 PM Dictation Location: [facility] Transcribed By: SHERINE 11/04/211799 Dictated By: Baltazar Saucedo DO 11/04/21 175 Signed By: 11/04/21 1800 [facility] Casts typing in urine sedime nt by light microscopyOrdered By: Marvin Peter on 11-04-2021 Casts LM Nom (Urine sed) None seen [LPF] None Seen [facility] Cepheid COVID PCR Negativeon 11-04-2021 SARS-CoV-2 (COVID-19) RNA PIPE+probe Ql (Unsp spec) Negative Normal Negative [facility] Comment on above: Result Comment: This is a duplicate Cepheid Xpert Xpress CoV-2/Flu/RSV Plus RNA by RT-PCR result to be used for statistical tracking purpose only. PERFORMED BY: [facility] [address] [place] [address] PATHOLOGIST NETWORK PROFESSIONAL FLIP GERMAN M.D. Performed By: #### G LULS #### Point of Care testing , Color Auto (U)Ordered By: Sina Peter on 11-04-2021 Color (U) Yellow Yellow [facility] Complete Blood Count Auto Di ffon 11-04-2021 Basophils (Bld) [#/Vol] 0.0 10*3/uL Normal 0.0-0.2 [facility] Comment on above: Result Comment: PERF ORMED BY: [facility] [address] [place] [address] PATHOLOGIST NETWORK PROFESSIONAL FLIP GERMAN M.D. Performed By: #### C MP, CBC ####[address] Basophils/100 WBC (Bld) 0.6 % Normal . [facility] Comment on above: Performed By: #### C MP, CBC ####[address] Eosinophils (Bld) [#/Vol] 0.1 10*3/uL Normal 0.0-0.45 [facility] Comment on above: Performed By: #### C MP, CBC ####[address] Eosinophils/100 WBC (Bld) 1.7 % Normal . [facility] Comment on above: Performed By: #### C MP, CBC ####[address] Erythrocyte distribution width (RBC) [Ratio] 16.3 % High 11.9-15.3 [facility] Comment on above: Performed By: #### C MP, CBC ####[address] Hematocrit (Bld) [Volume fraction] 39.2 % Normal 34.0-46.4 [facility] Comment on above: Performed By: #### C MP, CBC ####[address] Hemoglobin (Bld) [Mass/Vol] 12.8 g/dL Normal 11.8-15.4 [facility] Comment on above: Performed By: #### C MP, CBC ####[address] Lymphocytes (Bld) [#/Vol] 1.6 10*3/uL Normal 1.00-4.8 [facility] Comment on above: Performed By: #### C MP, CBC ####[address] Lymphocytes/100 WBC (Bld) 20.3 % Normal . [facility] Comment on above: Performed By: #### C MP, CBC ####[address] MCH (RBC) [Entitic mass] 29.2 pg Normal 24.7-34.3 [facility] Comment on above: Performed By: #### C MP, CBC ####[address] MCV (RBC) [Entitic vol] 89.5 fL Normal 80-100 [facility] Comment on above: Performed By: #### C MP, CBC ####[address] Mean Corpuscular HGB Conc 32.6 g/dL Normal 32.0-35.0 [facility] Comment on above: Performed By: #### C MP, CBC ####[address] Monocytes (Bld) [#/Vol] 0.8 10*3/uL Normal 0.0-0.8 [facility] Comment on above: Performed By: #### C MP, CBC ####[address] Monocytes/100 WBC (Bld) 9.7 % Normal . [facility] Comment on above: Performed By: #### C MP, CBC ####[address] Neutrophils (Bld) [#/Vol] 5.3 10*3/uL Normal 1.8-7.7 [facility] Comment on above: Performed By: #### C MP, CBC ####[address] Neutrophils/100 WBC (Bld) 67.7 % Normal . [facility] Comment on above: Performed By: #### C MP, CBC ####[address] Nucleated RBC/100 WBC (Bld) [Ratio] 0.1 % Normal 0-0.5 [facility] Comment on above: Performed By: #### C MP, CBC ####[address] Platelet mean volume (Bld) [Entitic vol] 7.9 fL Normal 6.3-10.7 [facility] Comment on above: Performed By: #### C MP, CBC ####[place] [id number] [facility] Platelets (Bld) [#/Vol] 318 10*3/uL Normal 150-450 [facility] Comment on above: Performed By: #### C MP, CBC ####[place] [id number] [facility] RBC (Bld) [#/Vol] 4.38 10*6/uL Normal 3.60-5.00 [facility] Comment on above: Performed By: #### C MP, CBC ####[place] [id number] [facility] WBC (Bld) [#/Vol] 7.9 10*3/uL Normal 4.5-11.0 [facility] Comment on above: Performed By: #### C MP, CBC ####[address] [address] [facility] Comprehensive Metabolic Pane loco 11-04-2021 Albumin [Mass/Vol] 3.4 g/dL Normal 3.2-5.5 [facility] Comment on above: Performed By: #### C MP, CBC ####[address] [address] [facility] Albumin/Globulin [Mass ratio] 0.9 {ratio} Normal [facility] Comment on above: Performed By: #### C MP, CBC ####[address] [address] [facility] ALP [Catalytic activity/Vol] 80 U/L Normal 32-92 [facility] Comment on above: Performed By: #### C MP, CBC ####[address] [address] [facility] ALT [Catalytic activity/Vol] 7 U/L Low 10-60 [facility] Comment on above: Performed By: #### C MP, CBC ####[address] [address] [facility] AST [Catalytic activity/Vol] 16 U/L Normal 10-42 [facility] Comment on above: Performed By: #### C MP, CBC ####[address] [address] [facility] Bilirubin [Mass/Vol] 1.2 mg/dL Normal 0.3-1.2 [facility] Comment on above: Performed By: #### C MP, CBC ####[address] [address] [facility] Calcium [Mass/Vol] 9.7 mg/dL Normal 8.2-10.2 [facility] Comment on above: Performed By: #### C MP, CBC ####[place] [id number] [facility] Chloride [Moles/Vol] 95 mmol/L Normal 95-114 [facility] Comment on above: Performed By: #### C MP, CBC ####[place] [id number] [place] [id number] [facility] CO2 [Moles/Vol] 30.4 mmol/L High 22.0-30.0 [facility] Comment on above: Performed By: #### C MP, CBC ####[place] [id number] [facility] Creatinine [Mass/Vol] 0.61 mg/dL Normal 0.44-1.03 [facility] Comment on above: Performed By: #### C MP, CBC ####[place] [id number] [address] Creatinine Clr Calc Pharmacy 64.44 [facility] Comment on above: Result Comment: PERF ORMED BY: [facility] [address] [place] [address] PATHOLOGIST NETWORK PROFESSIONAL FLIP GERMAN M.D. Performed By: #### C MP, CBC ####[place] [id number] [facility] Estimated GFR ( Trista > 60 [facility] Comment on above: Result Comment: GFR estimated reference range: According to KDOQI guidelines, <60 ml/min/1.73m2 is sufficient to diagnose a patient with chronic kidney disease. Performed By: #### C MP, CBC ####[place] [id number] [facility] Estimated GFR (Non- Am > 60 [facility] Comment on above: Performed By: #### C MP, CBC ####[place] [id number] [facility] Globulin (S) [Mass/Vol] 3.7 g/dL [facility] Comment on above: Performed By: #### C MP, CBC ####[place] [id number] [facility] Glucose [Mass/Vol] 131 mg/dL High 70-100 [facility] Comment on above: Result Comment: [place] om Glucose Reference Range is dependent on time and content of last meal. Glucose of more than 200 mg/dL in a nonstressed, ambulatory subject supports the diagnosis of Diabetes Mellitus. ADA recommended reference range Performed By: #### C MP, CBC ####[facility] [id number] [place] [address] [facility] Potassium [Moles/Vol] 3.8 mmol/L Normal 3.5-5.1 [facility] Comment on above: Performed By: #### C MP, CBC ####[facility] [id number] [place] [address] [facility] Protein [Mass/Vol] 7.1 g/dL Normal 6.1-7.9 [facility] Comment on above: Performed By: #### C MP, CBC ####[facility] [place] [address] [facility] Sodium [Moles/Vol] 137 mmol/L Normal 136-146 [facility] Comment on above: Performed By: #### C MP, CBC ####[facility] [id number] [place] [address] [facility] Urea nitrogen [Mass/Vol] 14 mg/dL Normal 9-23 [facility] Comment on above: Performed By: #### C MP, CBC ####[facility] [id number] [place] [address] [place] Dipstick and Microscopicon 0 11-04-2021 Appearance (U) Cloudy Critically abnormal Clear [facility] Comment on above: Order Comment: Name Collection Type:: Voided Performed By: #### G LULS #### Point of Care testing , Bacteria,Urine 4+ High None Seen [facility] Comment on above: Order Comment: Name Collection Type:: Voided Performed By: #### G LULS #### Point of Care testing , Bilirubin,Urine Negative Normal Negative [facility] Comment on above: Order Comment: Name Collection Type:: Voided Performed By: #### G LULS #### Point of Care testing , Color (U) Yellow Normal Yellow [facility] Comment on above: Order Comment: Name Collection Type:: Voided Performed By: #### G LULS #### Point of Care testing , Glucose Ql (U) Normal Normal Normal [facility] Comment on above: Order Comment: Name Collection Type:: Voided Performed By: #### G LULS #### Point of Care testing , Hyaline Casts,Urine Rare Normal 0-1 [facility] Comment on above: Order Comment: Name Collection Type:: Voided Performed By: #### G LULS #### Point of Care testing , Ketones Ql (U) 1+ High Negative [facility] Comment on above: Order Comment: Name Collection Type:: Voided Performed By: #### G LULS #### Point of Care testing , Leukocyte esterase Test strip Ql (U) 3+ High Negative [facility] Comment on above: Order Comment: Name Collection Type:: Voided Performed By: #### G LULS #### Point of Care testing , Nitrite,Urine Positive High Negative [facility] Comment on above: Order Comment: Name Collection Type:: Voided Performed By: #### G LULS #### Point of Care testing , Occult Blood,Urine 3+ High Negative [facility] Comment on above: Order Comment: Name Collection Type:: Voided Result Comment: PERF ORMED BY: [address] [place] [address] PATHOLOGIST NETWORK PROFESSIONAL FLIP GERMAN M.D. Performed By: #### G LULS #### Point of Care testing , Other Casts,Urine None Seen Normal None Seen [facility] Comment on above: Order Comment: Name Collection Type:: Voided Result Comment: PERF ORMED BY: [facility] [address] [facility] [place] [address] PATHOLOGIST NETWORK PROFESSIONAL FLIP GERMAN M.D. Performed By: #### G LULS #### Point of Care testing , pH (U) 5.5 [pH] Normal 5.0-9.0 [facility] Comment on above: Order Comment: Name Collection Type:: Voided Performed By: #### G LULS #### Point of Care testing , Protein (U) [Mass/Vol] 30 mg/dL High Negative [facility] Comment on above: Order Comment: Name Collection Type:: Voided Performed By: #### G LULS #### Point of Care testing , RBC,Urine Innumerable High 0-4 [facility] Comment on above: Order Comment: Name Collection Type:: Voided Performed By: #### G LULS #### Point of Care testing , Specificy [place],Urine 1.029 Normal 1.001-1.03 0 [facility] Comment on above: Order Comment: Name Collection Type:: Voided Performed By: #### G LULS #### Point of Care testing , Squamous Epithelial Cell,Urine 5-9 High 0-2 [facility] Comment on above: Order Comment: Name Collection Type:: Voided Performed By: #### G LULS #### Point of Care testing , Urobilinogen,Urine Normal Normal Normal [facility] Comment on above: Order Comment: Name Collection Type:: Voided Performed By: #### G LULS #### Point of Care testing , WBC,Urine 50-100 High 0-4 [facility] Comment on above: Order Comment: Name Collection Type:: Voided Performed By: #### G LULS #### Point of Care testing , Globulin Calc (S) [Mass/Vol] Ordered By: Marvin Peter on 11-04-2021 Globulin (S) [Mass/Vol] 3.7 g/dL [facility] Ketones Auto test strip (U) [Mass/Vol]Ordered By: Marvin Peter on 11-04-2021 Ketones (U) [Mass/Vol] 1+ Negative [facility] Nitrite Test strip Ql (U)Ord ered By: Marvin Peter on 11-04-2021 Nitrite Ql (U) Positive Negative [facility] No Panel InformationOrdered By: Enrrique Mota on 11-04-2021 25-Hydroxy Vitamin D Total 71.4 ng/mL 30-100 [facility] Comment on above: VITAMIN D STATUS 25( [place])VITAMIN D RANGE (ng/mL) Deficient <20 Insufficient 20 to <30 Sufficient 30 to 100 Reference: Ken Rene, Yoandy PEDERSEN, et al. Evaluation,treatment, and prevention of vitamin D deficiency; an Endocrine Society clinical practice guideline. JCEM. 2010; 96(7):1911-. VITAMIN D STATUS 25( [place])VITAMIN D RANGE (ng/mL) Deficient <20 Insufficient 20 to <30Sufficient 30 to 100Reference: Ken Rene, Yoandy PEDERSEN, et al. Evaluation,treatment, and prevention of vitamin D deficiency; an Endocrine Society clinical practice guideline. JCEM. 2010; 96(7):1911-30. Protein Auto test strip (U) [Mass/Vol]Ordered By: Marvin Peter on 11-04-2021 Protein (U) [Mass/Vol] 30 mg/dL Negative [facility] Protein [Mass/volume] in Ser um or PlasmaOrdered By: Marvin Peter on 11-04-2021 Protein [Mass/Vol] 7.1 g/dL 6.1-7.9 [facility] Prothrombin Time INRon 11-04 INR Coag (PPP) [Relative time] 8.2 {INR} Off scale high [facility] Comment on above: Result Comment: Crit [...] heart valves: 3 - 4.5 PERFORMED BY: [facility] [address] [place] [address] PATHOLOGIST NETWORK PROFESSIONAL FLIP GERMAN M.D. Performed By: #### G LULS #### Point of Care testing , PT Coag (PPP) [Time] 96.2 s High 9.0-12.9 [facility] Comment on above: Performed By: #### G LULS #### Point of Care testing , Serum or plasma alanine engel otransferase measurement without P-5'-P (enzymatic activiOrdered By: Marvin Peter on 11-04-2021 ALT No additional P-5'-P [Catalytic activity/Vol] 7 U/L 10-60 [facility] Serum or plasma albumin/glob ulin mass ratioOrdered By: Marvin Peter on 11-04-2021 Albumin/Globulin [Mass ratio] 0.9 {ratio} [facility] Serum or plasma alkaline bouchra sphatase measurement (enzymatic activity/volume)Ordered By: Marvin Peter on 11-04-2021 ALP [Catalytic activity/Vol] 80 U/L 32-92 [facility] Serum or plasma aspartate am inotransferase measurement (enzymatic activity/volume)Ordered By: Marvin Peter on 11-04-2021 AST [Catalytic activity/Vol] 16 U/L 10-42 [facility] Serum or plasma total biliru bin measurement (mass/volume)Ordered By: Marvin Peter on 11-04-2021 Bilirubin [Mass/Vol] 1.2 mg/dL 0.3-1.2 [facility] Evita Ag Negativeon 11-05-19 22 Evita Ag Negative Negative Normal Negative [facility] Comment on above: Result Comment: This is a duplicate Evita SARS Antigen ([facility]) result to be used for statistical tracking purpose only. PERFORMED BY: [facility] [address] [place] [address] PATHOLOGIST NETWORK PROFESSIONAL FLIP GERMAN M.D. Performed By: #### G LULS #### Point of Care testing , Specific gravity Auto test s trip (U) [Rel density]Ordered By: Marvin Peter on 11-04-2021 Specific gravity (U) [Rel density] 1.029 1.001-1.03 0 [facility] Squamous epithelial cells de tection in urine sediment by light microscopyOrdered By: Marvin Peter on 11-04-2021 Epithelial cells.squamous LM Ql (Urine sed) 5-9 [HPF] 0-2 [facility] TSH DL <= 0.005 mIU/L QnOrde red By: Enrrique Mota on 11-04-2021 TSH Qn 2.09 m[IU]/L 0.45-5.33 [facility] Thyroid Stimulating Hormoneo n 11-04-2021 TSH Qn 2.09 m[IU]/L Normal 0.45-5.33 [facility] Comment on above: Order Comment: Bobby melendez addon Result Comment: PERF ORMED BY: [facility] [address] [address] PATHOLOGIST NETWORK PROFESSIONAL FLIP GERMAN M.D. Performed By: #### G LULS #### Point of Care testing , Urine Cultureon 11-04-2021 Bacteria identified Cx Nom (U) ORGANISM: Escherichia coli (O:ESCCOL) [place] Count >100,000 Aerobic JIMMY Charge (NUC86) SUSCEPTIBILITY [...] RESISTANT TO ALL B-LACTAM DRUGS. PERFORMED BY: [facility] [address] [address] PATHOLOGIST NETWORK PROFESSIONAL FLIP GERMAN M.D. Normal [facility] Comment on above: Performed By: #### G LULS #### Point of Care testing , Urine bacteria detection by automated methodOrdered By: Marvin Peter on 11-04-2021 Bacteria Auto Ql (U) 4+ None Seen [facility] Urine clarity by refractomet ry automatedOrdered By: Marvin Peter on 11-04-2021 Clarity Refractometry automated (U) Cloudy Clear [facility] Urine glucose measurement by automated test strip (mass/volume)Ordered By: Marvin Peter on 11-04-2021 Glucose Auto test strip (U) [Mass/Vol] Normal mg/dL Normal [facility] Urine hemoglobin detection b y automated test stripOrdered By: Marvin Peter on 11-04-2021 Hemoglobin Auto test strip Ql (U) 3+ Negative [facility] Urine leukocyte esterase det ection by automated test stripOrdered By: Marvin Peter on 11-04-2021 Leukocyte esterase Auto test strip Ql (U) 3+ Negative [facility] Urobilinogen Auto test strip (U) [Mass/Vol]Ordered By: Marvin Peter on 11-04-2021 Urobilinogen (U) [Mass/Vol] Normal mg/dL Normal [facility] Vitamin D 25 Hydroxy Totalon 11-04-2021 Vitamin D 25 Hydroxy Total 71.4 ng/mL Normal 30-100 [facility] Comment on above: Order Comment: Comme nt addon Result Comment: FREDERIC MIN D STATUS 25([place])VITAMIN D RANGE (ng/mL) Deficient <20 Insufficient 20 to <30 Sufficient 30 to 100 Reference: Earl MF,Ken NC, Yoandy PEDERSEN, et al. Evaluation,treatment, and prevention of vitamin D deficiency; an Endocrine Society clinical practice guideline. JCEM. 2010; 96(7):1911-30. PERFORMED BY: [facility] [address] [place] [address] PATHOLOGIST NETWORK PROFESSIONAL FLIP GERMAN M.D. Performed By: #### V [id number] ####[facility] [id number] [place] [address] [place] pH Auto test strip (U)Ordere d By: Marvin Peter on 11-04-2021 pH (U) 5.5 [pH] 5.0-9.0 [facility] Prothrombin Time INRon 10-22 INR Coag (PPP) [Relative time] 4.5 {INR} [facility] Other Prothrombin Time INR [facility] Fleep Other CT head/brain wo conon 10-20 CT head/brain wo con [facility] Main [place] [address] [place] [address] CT Scan Report Signed Patient: Alton Barker MR#: [id number] 987 : 1940 Acct:[id number] Age/Sex: 81 / F ADM Date: 10/19/21 Loc: ER Room: Type: [facility] ER Attending Dr: Copies [...] Vijay Holden M.D.10/20/2021 8:09 AM Dictation Location: [place] [address] Transcribed By: SHERINE 08/09/22 0809 Dictated By: Vijay Holden II, MD 10/20/21805 Signed By: 10/20/21808 [facility] XR lumbar spine 2-3V*on XR lumbar spine 2-3V* [facility] [place] [address] [place], [place] [id number] XRay Report Signed Patient: Alton Barker MR#: [id number] 987 : 1940 Acct:[id number] Age/Sex: 81 / F ADM Date: 10/19/21 Loc: ER Room: Type: [facility] ER Attending Dr: Copies [...] Vijay Holden M.D.10/20/2021 8:11 AM Dictation Location: [place] [address] Transcribed By: SHERINE 10/20/21810 Dictated By: Vijay Holden II, MD 10/20/21808 Signed By: 10/20/21810 [facility] Urine culture routineOrdered By: Sumanth Lowe on 09-30-2021 Bacteria identified Cx Nom (U) Escherichia coli [facility] Prothrombin Time INRon 09-29 INR Coag (PPP) [Relative time] 3.3 {INR} [facility] Other Prothrombin Time INR [facility] Other Automated erythrocytes count in urine sediment (number/area)Ordered By: Sumanth Lowe on 09-28-2021 RBC Auto (Urine sed) [#/Area] 10-19 [HPF] 0-4 [facility] Automated leukocytes count i n urine sediment (number/area)Ordered By: Sumanth Lowe on 09-28-2021 WBC Auto (Urine sed) [#/Area] 20-49 [HPF] 0-4 [facility] Basophils Auto (Bld) [#/Vol] Ordered By: Sumanth Lowe on 09-28-2021 Basophils (Bld) [#/Vol] 0.0 10*3/uL 0.0-0.2 [facility] Basophils/100 WBC Auto (Bld) Ordered By: Sumanth Lowe on 09-28-2021 Basophils/100 WBC (Bld) 0.4 % . [facility] Bilirubin Test strip Ql (U)O rdered By: Sumanth Lowe on 09-28-2021 Bilirubin Ql (U) Negative Negative [facility] Blood hemoglobin measurement (mass/volume)Ordered By: Sumanth Lowe on 09-28-2021 Hemoglobin (Bld) [Mass/Vol] 12.3 g/dL 11.8-15.4 [facility] Blood leukocytes automated c ount (number/volume)Ordered By: Sumanth Lowe on 09-28-2021 WBC (Bld) [#/Vol] 5.1 10*3/uL 4.5-11.0 [facility] [facility] Body fluid albumin measureme nt (mass/volume)Ordered By: Sumanth Lowe on 09-28-2021 Albumin (Body fld) [Mass/Vol] 3.3 g/dL 3.2-5.5 [facility] Color Auto (U)Ordered By: Giuseppe Lowe on 09-28-2021 Color (U) Yellow Yellow [facility] Complete Blood Count Auto Di ffon 09-28-2021 Basophils (Bld) [#/Vol] 0.0 10*3/uL Normal 0.0-0.2 [facility] Comment on above: Result Comment: PERF ORMED BY: [facility] [address] [place] [address] PATHOLOGIST NETWORK PROFESSIONAL FLIP GERMAN M.D. Performed By: #### C BC, CMP ####[address] Basophils/100 WBC (Bld) 0.4 % Normal . [facility] Comment on above: Performed By: #### C BC, CMP ####[address] Eosinophils (Bld) [#/Vol] 0.0 10*3/uL Normal 0.0-0.45 [facility] Comment on above: Performed By: #### C BC, CMP ####[address] Eosinophils/100 WBC (Bld) 0.4 % Normal . [facility] Comment on above: Performed By: #### C BC, CMP ####[address] Erythrocyte distribution width (RBC) [Ratio] 15.9 % High 11.9-15.3 [facility] Comment on above: Performed By: #### C BC, CMP ####[address] Hematocrit (Bld) [Volume fraction] 37.5 % Normal 34.0-46.4 [facility] Comment on above: Performed By: #### C BC, CMP ####[address] Hemoglobin (Bld) [Mass/Vol] 12.3 g/dL Normal 11.8-15.4 [facility] Comment on above: Performed By: #### C BC, CMP ####[address] Lymphocytes (Bld) [#/Vol] 0.8 10*3/uL Low 1.00-4.8 [facility] Comment on above: Performed By: #### C BC, CMP ####[address] Lymphocytes/100 WBC (Bld) 16.2 % Normal . [facility] Comment on above: Performed By: #### C BC, CMP ####[address] MCH (RBC) [Entitic mass] 29.5 pg Normal 24.7-34.3 [facility] Comment on above: Performed By: #### C BC, CMP ####[address] MCV (RBC) [Entitic vol] 90.3 fL Normal 80-100 [facility] Comment on above: Performed By: #### C BC, CMP ####[address] Mean Corpuscular HGB Conc 32.7 g/dL Normal 32.0-35.0 [facility] Comment on above: Performed By: #### C BC, CMP ####[address] Monocytes (Bld) [#/Vol] 0.7 10*3/uL Normal 0.0-0.8 [facility] Comment on above: Performed By: #### C BC, CMP ####[address] Monocytes/100 WBC (Bld) 13.9 % Normal . [facility] Comment on above: Performed By: #### C BC, CMP ####[address] Neutrophils (Bld) [#/Vol] 3.5 10*3/uL Normal 1.8-7.7 [facility] Comment on above: Performed By: #### C BC, CMP ####[address] Neutrophils/100 WBC (Bld) 69.1 % Normal . [facility] Comment on above: Performed By: #### C BC, CMP ####[place] [phone] [facility] Nucleated RBC/100 WBC (Bld) [Ratio] 0.0 % Normal 0-0.5 [facility] Comment on above: Performed By: #### C BC, CMP ####[place] [phone] [facility] Platelet mean volume (Bld) [Entitic vol] 8.6 fL Normal 6.3-10.7 [facility] Comment on above: Performed By: #### C BC, CMP ####[place] [phone] [facility] Platelets (Bld) [#/Vol] 154 10*3/uL Normal 150-450 [facility] Comment on above: Performed By: #### C BC, CMP ####[address] RBC (Bld) [#/Vol] 4.16 10*6/uL Normal 3.60-5.00 [facility] Comment on above: Performed By: #### C BC, CMP ####[place] [phone] [facility] WBC (Bld) [#/Vol] 5.1 10*3/uL Normal 4.5-11.0 [facility] Comment on above: Performed By: #### C BC, CMP ####[place] [phone] [facility] Comprehensive Metabolic Pane loco 09-28-2021 Albumin [Mass/Vol] 3.3 g/dL Normal 3.2-5.5 [facility] Comment on above: Performed By: #### C BC, CMP ####[place] [phone] [facility] Albumin/Globulin [Mass ratio] 0.9 {ratio} Normal [facility] Comment on above: Performed By: #### C BC, CMP ####[place] [phone] [facility] ALP [Catalytic activity/Vol] 51 U/L Normal 32-92 [facility] Comment on above: Performed By: #### C BC, CMP ####[address] [address] [facility] ALT [Catalytic activity/Vol] 7 U/L Low 10-60 [facility] Comment on above: Performed By: #### C BC, CMP ####[address] [address] [facility] AST [Catalytic activity/Vol] 20 U/L Normal 10-42 [facility] Comment on above: Performed By: #### C BC, CMP ####[place] [phone] [facility] Bilirubin [Mass/Vol] 1.0 mg/dL Normal 0.3-1.2 [facility] Comment on above: Performed By: #### C BC, CMP ####[place] [phone] [facility] Calcium [Mass/Vol] 8.9 mg/dL Normal 8.2-10.2 [facility] Comment on above: Performed By: #### C BC, CMP ####[address] [address] [facility] Chloride [Moles/Vol] 95 mmol/L Normal 95-114 [facility] Comment on above: Performed By: #### C BC, CMP ####[address] [address] [facility] CO2 [Moles/Vol] 29.5 mmol/L Normal 22.0-30.0 [facility] Comment on above: Performed By: #### C BC, CMP ####[address] [address] [facility] Creatinine [Mass/Vol] 0.67 mg/dL Normal 0.44-1.03 [facility] Comment on above: Performed By: #### C BC, CMP ####[address] [address] [facility] Creatinine Clr Calc Pharmacy 66.85 Normal [facility] Comment on above: Result Comment: PERF ORMED BY: [facility] [address] [place] [phone] PATHOLOGIST NETWORK PROFESSIONAL FLIP GERMAN M.D. Performed By: #### C BC, CMP ####[place] [phone] [place] [phone] [facility] Estimated GFR ( Trista > 60 [facility] Comment on above: Result Comment: GFR estimated reference range: According to KDOQI guidelines, <60 ml/min/1.73m2 is sufficient to diagnose a patient with chronic kidney disease. Performed By: #### C BC, CMP ####[place] [phone] [facility] Estimated GFR (Non- Am > 60 [facility] Comment on above: Performed By: #### C BC, CMP ####[place] [phone] [facility] Globulin (S) [Mass/Vol] 3.6 g/dL [facility] Comment on above: Performed By: #### C BC, CMP ####[place] [phone] [facility] Glucose [Mass/Vol] 146 mg/dL High 70-100 [facility] Comment on above: Result Comment: [place] Glucose Reference Range is dependent on time and content of last meal. Glucose of more than 200 mg/dL in a nonstressed, ambulatory subject supports the diagnosis of Diabetes Mellitus. ADA recommended reference range Performed By: #### C BC, CMP ####[place] [phone] [facility] Potassium [Moles/Vol] 3.5 mmol/L Normal 3.5-5.1 [facility] Comment on above: Performed By: #### C BC, CMP ####[place] [phone] [facility] Protein [Mass/Vol] 6.9 g/dL Normal 6.1-7.9 [facility] Comment on above: Performed By: #### C BC, CMP ####[address] [place] [address] [facility] Sodium [Moles/Vol] 136 mmol/L Normal 136-146 [facility] Comment on above: Performed By: #### C BC, CMP ####[facility] [place] [phone] [facility] Urea nitrogen [Mass/Vol] 7 mg/dL Low 9-23 [facility] Comment on above: Performed By: #### C BC, CMP ####[address] Creatinine and Glomerular fi ltration rate.predicted panel (S/P/Bld)Ordered By: Sumanth Lowe on 09-28-2021 Creatinine [Mass/Vol] 0.67 mg/dL 0.44-1.03 [facility] Dipstick and Microscopicon 0 09-28-2021 Appearance (U) Cloudy Critically abnormal Clear [facility] Comment on above: Order Comment: Name Collection Type:: Clean-Voided Midstream Performed By: #### G LULS #### Point of Care testing , Bacteria,Urine 3+ High None Seen [facility] Comment on above: Order Comment: Name Collection Type:: Clean-Voided Midstream Performed By: #### G LULS #### Point of Care testing , Bilirubin,Urine Negative Normal Negative [facility] Comment on above: Order Comment: Name Collection Type:: Clean-Voided Midstream Performed By: #### G LULS #### Point of Care testing , Color (U) Yellow Normal Yellow [facility] Comment on above: Order Comment: Name Collection Type:: Clean-Voided Midstream Performed By: #### G LULS #### Point of Care testing , Glucose Ql (U) Normal Normal Normal [facility] Comment on above: Order Comment: Name Collection Type:: Clean-Voided Midstream Performed By: #### G LULS #### Point of Care testing , Hyaline Casts,Urine 0-8 Normal 0-8 [facility] Comment on above: Order Comment: Name Collection Type:: Clean-Voided Midstream Performed By: #### G LULS #### Point of Care testing , Ketones Ql (U) 2+ High Negative [facility] Comment on above: Order Comment: Name Collection Type:: Clean-Voided Midstream Performed By: #### G LULS #### Point of Care testing , Leukocyte esterase Test strip Ql (U) 2+ High Negative [facility] Comment on above: Order Comment: Name Collection Type:: Clean-Voided Midstream Performed By: #### G LULS #### Point of Care testing , Nitrite,Urine Positive High Negative [facility] Comment on above: Order Comment: Name Collection Type:: Clean-Voided Midstream Performed By: #### G LULS #### Point of Care testing , Occult Blood,Urine 2+ High Negative [facility] Comment on above: Order Comment: Name Collection Type:: Clean-Voided Midstream Result Comment: PERF ORMED BY: [address] [place] [place] [address] PATHOLOGIST NETWORK PROFESSIONAL FLIP GERMAN M.D. Performed By: #### G LULS #### Point of Care testing , pH (U) 6.5 [pH] Normal 5.0-9.0 [facility] Comment on above: Order Comment: Name Collection Type:: Clean-Voided Midstream Performed By: #### G LULS #### Point of Care testing , Protein,Urine Negative Normal Negative [facility] Comment on above: Order Comment: Name Collection Type:: Clean-Voided Midstream Performed By: #### G LULS #### Point of Care testing , RBC,Urine 10-19 High 0-4 [facility] Comment on above: Order Comment: Name Collection Type:: Clean-Voided Midstream Performed By: #### G LULS #### Point of Care testing , Specificy [place],Urine 1.013 Normal 1.001-1.03 0 [facility] Comment on above: Order Comment: Name Collection Type:: Clean-Voided Midstream Performed By: #### G LULS #### Point of Care testing , Squamous Epithelial Cell,Urine None Seen Normal 0-2 [facility] Comment on above: Order Comment: Name Collection Type:: Clean-Voided Midstream Performed By: #### G LULS #### Point of Care testing , Urobilinogen,Urine Normal Normal Normal [facility] Comment on above: Order Comment: Name Collection Type:: Clean-Voided Midstream Performed By: #### G LULS #### Point of Care testing , WBC,Urine 20-49 High 0-4 [facility] Comment on above: Order Comment: Name Collection Type:: Clean-Voided Midstream Performed By: #### G LULS #### Point of Care testing , Yeast,Urine None Seen Normal None Seen [facility] Comment on above: Order Comment: Name Collection Type:: Clean-Voided Midstream Result Comment: PERF ORMED BY: [place] [address] PATHOLOGIST NETWORK PROFESSIONAL FLIP GERMAN M.D. Performed By: #### G LULS #### Point of Care testing , ECG 12 lead ECGon 09-28-2021 ECG 12 lead ECG [facility] [place] [address] Electrocardiograph Report Signed Patient: Alton Barker MR#: [id number] : 1940 Acct:[id number] Age/Sex: 81 / F ADM Date: 09/27/21 Loc: ER Room: Type: [facility] ER Attending Dr: Ordering [...] Signed By Sumanth Lowe DO 0601 Normal [facility] Eosinophils Auto (Bld) [#/Vo l]Ordered By: Sumanth Lowe on 09-28-2021 Eosinophils (Bld) [#/Vol] 0.0 10*3/uL 0.0-0.45 [facility] Eosinophils/100 WBC Auto (Bl d)Ordered By: Sumanth Lowe on 09-28-2021 Eosinophils/100 WBC (Bld) 0.4 % . [facility] Erythrocyte distribution wid th Auto (RBC) [Ratio]Ordered By: Sumanth Lowe on 09-28-2021 Erythrocyte distribution width (RBC) [Ratio] 15.9 % 11.9-15.3 [facility] Estimated glomerular filtrat ion rate (GFR) non- AmericanOrdered By: Sumanth Lowe on 09-28-2021 GFR/1.73 sq M.predicted among non-blacks MDRD (S/P/Bld) [Vol rate/Area] > 60 mL/Min [facility] Globulin Calc (S) [Mass/Vol] Ordered By: Sumanth Lowe on 09-28-2021 Globulin (S) [Mass/Vol] 3.6 g/dL [facility] Hematocrit Auto (Bld) [Volum e fraction]Ordered By: Sumanth Lowe on 09-28-2021 Hematocrit (Bld) [Volume fraction] 37.5 % 34.0-46.4 [facility] Ketones Auto test strip (U) [Mass/Vol]Ordered By: Sumanth Lowe on 09-28-2021 Ketones (U) [Mass/Vol] 2+ Negative [facility] Laboratory - Hematology and Cell countsOrdered By: Sumanth Lowe on 09-28-2021 Nucleated RBC/100 WBC (Bld) [Ratio] 0.0 % 0-0.5 [facility] Laboratory - UrinalysisOrder ed By: Sumanth Lowe on 09-28-2021 Hyaline casts LM Ql (Urine sed) 0-8 [LPF] 0-8 [facility] Lymphocytes Auto (Bld) [#/Vo l]Ordered By: Sumanth Lowe on 09-28-2021 Lymphocytes (Bld) [#/Vol] 0.8 10*3/uL 1.00-4.8 [facility] Lymphocytes/100 WBC Auto (Bl d)Ordered By: Sumanth Lowe on 09-28-2021 Lymphocytes/100 WBC (Bld) 16.2 % . [facility] MCH Auto (RBC) [Entitic mass ]Ordered By: Sumanth Lowe on 09-28-2021 MCH (RBC) [Entitic mass] 29.5 pg 24.7-34.3 [facility] MCHC Auto (RBC) [Mass/Vol]Or dered By: Sumanth Lowe on 09-28-2021 MCHC (RBC) [Mass/Vol] 32.7 g/dL 32.0-35.0 [facility] MCV Auto (RBC) [Entitic vol] Ordered By: Sumanth Lowe on 09-28-2021 MCV (RBC) [Entitic vol] 90.3 fL 80-100 [facility] Monocytes Auto (Bld) [#/Vol] Ordered By: Sumanth Lowe on 09-28-2021 Monocytes (Bld) [#/Vol] 0.7 10*3/uL 0.0-0.8 [facility] Monocytes/100 WBC Auto (Bld) Ordered By: Sumanth Lowe on 09-28-2021 Monocytes/100 WBC (Bld) 13.9 % . [facility] Neutrophils Auto (Bld) [#/Vo l]Ordered By: Sumanth Lowe on 09-28-2021 Neutrophils (Bld) [#/Vol] 3.5 10*3/uL 1.8-7.7 [facility] Neutrophils/100 WBC Auto (Bl d)Ordered By: Sumanth Lowe on 09-28-2021 Neutrophils/100 WBC (Bld) 69.1 % . [facility] Nitrite Test strip Ql (U)Ord ered By: Sumanth Lowe on 09-28-2021 Nitrite Ql (U) Positive Negative [facility] No Panel InformationOrdered By: Sumanth Lowe on 09-28-2021 Estimated GFR () > 60 mL/Min [facility] Comment on above: GFR estimated refere nce range: According to KDOQI guidelines, <60 ml/min/1.73m2 is sufficient to diagnose a patient with chronic kidney disease. Pharmacy Creatinine Clearance (Chem 66.85 [facility] Platelet mean volume Auto (B ld) [Entitic vol]Ordered By: Sumanth Lowe on 09-28-2021 Platelet mean volume (Bld) [Entitic vol] 8.6 fL 6.3-10.7 [facility] Platelets Auto (Bld) [#/Vol] Ordered By: uSmanth Lowe on 09-28-2021 Platelets (Bld) [#/Vol] 154 10*3/uL 150-450 [facility] Protein Auto test strip (U) [Mass/Vol]Ordered By: Sumanth Lowe on 09-28-2021 Protein (U) [Mass/Vol] Negative Negative [facility] Protein [Mass/volume] in Ser um or PlasmaOrdered By: Sumanth Lowe on 09-28-2021 Protein [Mass/Vol] 6.9 g/dL 6.1-7.9 [facility] RBC Auto (Bld) [#/Vol]Ordere d By: Sumanth Lowe on 09-28-2021 RBC (Bld) [#/Vol] 4.16 10*6/uL 3.60-5.00 [facility] Serum or plasma alanine engel otransferase measurement without P-5'-P (enzymatic activiOrdered By: Sumanth Lowe on 09-28-2021 ALT No additional P-5'-P [Catalytic activity/Vol] 7 U/L 10-60 [facility] Serum or plasma albumin/glob ulin mass ratioOrdered By: Sumanth Lowe on 09-28-2021 Albumin/Globulin [Mass ratio] 0.9 {ratio} [facility] Serum or plasma alkaline bouchra sphatase measurement (enzymatic activity/volume)Ordered By: Sumanth Lowe on 09-28-2021 ALP [Catalytic activity/Vol] 51 U/L 32-92 [facility] Serum or plasma aspartate am inotransferase measurement (enzymatic activity/volume)Ordered By: Sumanth Lowe on 09-28-2021 AST [Catalytic activity/Vol] 20 U/L 10-42 [facility] Serum or plasma calcium alondra urement (mass/volume)Ordered By: Sumanth Lowe on 09-28-2021 Calcium [Mass/Vol] 8.9 mg/dL 8.2-10.2 [facility] Serum or plasma chloride link surement (moles/volume)Ordered By: Sumanth Lowe on 09-28-2021 Chloride [Moles/Vol] 95 mmol/L 95-114 [facility] Serum or plasma glucose alondra urement (mass/volume)Ordered By: Sumanth Loew on 09-28-2021 Glucose [Mass/Vol] 146 mg/dL 70-100 [facility] Comment on above: ADA recommended refe rence range Random Glucose Reference Range is dependent on time and content of last meal. Glucose of more than 200 mg/dL in a nonstressed, ambulatory subject supports the diagnosis of Diabetes Mellitus. Serum or plasma potassium me asurement (moles/volume)Ordered By: Sumanth Lowe on 09-28-2021 Potassium [Moles/Vol] 3.5 mmol/L 3.5-5.1 [facility] Serum or plasma sodium measu rement (moles/volume)Ordered By: Sumanth Lowe on 09-28-2021 Sodium [Moles/Vol] 136 mmol/L 136-146 [facility] Serum or plasma total biliru bin measurement (mass/volume)Ordered By: Sumanth Lowe on 09-28-2021 Bilirubin [Mass/Vol] 1.0 mg/dL 0.3-1.2 [facility] Serum or plasma total carbon dioxide measurement (moles/volume)Ordered By: Sumanth Lowe on 09-28-2021 CO2 [Moles/Vol] 29.5 mmol/L 22.0-30.0 [facility] Serum or plasma urea nitroge n measurement (mass/volume)Ordered By: Sumanth Lowe on 09-28-2021 Urea nitrogen [Mass/Vol] 7 mg/dL 9-23 [facility] Specific gravity Auto test s trip (U) [Rel density]Ordered By: Sumanth Lowe on 09-28-2021 Specific gravity (U) [Rel density] 1.013 1.001-1.03 0 [facility] Squamous epithelial cells de tection in urine sediment by light microscopyOrdered By: Sumanth Lowe on 09-28-2021 Epithelial cells.squamous LM Ql (Urine sed) None seen [HPF] 0-2 [facility] Urine Cultureon 09-28-2021 Bacteria identified Cx Nom (U) ORGANISM: Escherichia coli (O:ESCCOL) [place] Count >100,000 Aerobic JIMMY Charge (NUC86) SUSCEPTIBILITY [...] TO ALL B-LACTAM DRUGS. PERFORMED BY: [address] [place] [address] PATHOLOGIST NETWORK PROFESSIONAL FLIP GERMAN M.D. Normal [facility] Comment on above: Performed By: #### G LULS #### Point of Care testing , Urine bacteria detection by automated methodOrdered By: Sumanth Lowe on 09-28-2021 Bacteria Auto Ql (U) 3+ None Seen [facility] Urine clarity by refractomet ry automatedOrdered By: Sumanth Lowe on 09-28-2021 Clarity Refractometry automated (U) Cloudy Clear [facility] Urine glucose measurement by automated test strip (mass/volume)Ordered By: Sumanth Lowe on 09-28-2021 Glucose Auto test strip (U) [Mass/Vol] Normal mg/dL Normal [facility] Urine hemoglobin detection b y automated test stripOrdered By: Sumanth Lowe on 09-28-2021 Hemoglobin Auto test strip Ql (U) 2+ Negative [facility] Urine leukocyte esterase det ection by automated test stripOrdered By: Sumanth Lowe on 09-28-2021 Leukocyte esterase Auto test strip Ql (U) 2+ Negative [facility] Urobilinogen Auto test strip (U) [Mass/Vol]Ordered By: Sumanth Lowe on 09-28-2021 Urobilinogen (U) [Mass/Vol] Normal mg/dL Normal [facility] XR chest 2V*on 09-28-2021 XR chest 2V* [facility] [place] [address] XRay Report Signed Patient: Alton Barker MR#: [id number] 987 : 1940 Acct:[id number] Age/Sex: 81 / F ADM Date: 09/27/21 Loc: ER Room: Type: [facility] ER Attending Dr: Copies [...] SEEN. Impression dictated by: Alcides Malin Jr., D.O.09/28/2021 9:27 AM Dictation Location: [place] [address] Transcribed By: [facility] 09/28/21926 Dictated By: Alcides Malin Jr, DO 09/28/21926 Signed By: 09/28/21926 [facility] Yeast detection in urine sed iment by light microscopyOrdered By: Sumanth Lowe on 09-28-2021 Yeast LM Ql (Urine sed) None seen [HPF] None Seen [facility] pH Auto test strip (U)Ordere d By: Sumanth Lowe on 09-28-2021 pH (U) 6.5 [pH] 5.0-9.0 [facility] Prothrombin Time INRon 08-26 INR Coag (PPP) [Relative time] 2.1 {INR} [facility] Other Prothrombin Time INR [facility] Other Prothrombin Time INRon 08-05 INR Coag (PPP) [Relative time] 2.3 {INR} [facility] Other Prothrombin Time INR [facility] Other Complete Blood Count with Au to Diffon 07-16-2021 Basophils (Bld) [#/Vol] 0.02 10*3/uL Normal 0.00-0.20 [facility] Comment on above: Performed By: #### L IPD, TSH, CMP, VITD, CBCAD #### [facility] [address] [place], [place] [id number] Basophils/100 WBC (Bld) 0.3 % Normal [facility] Comment on above: Performed By: #### L IPD, TSH, CMP, VITD, CBCAD #### [facility] [address] [place], [place] [id number] Eosinophils (Bld) [#/Vol] 0.17 10*3/uL Normal 0.02-0.50 [facility] Comment on above: Performed By: #### L IPD, TSH, CMP, VITD, CBCAD #### [facility] [address] [place], [place] [id number] Eosinophils/100 WBC (Bld) 2.8 % Normal [facility] Comment on above: Performed By: #### L IPD, TSH, CMP, VITD, CBCAD #### [facility] [address], [place] [id number] Erythrocyte distribution width (RBC) [Ratio] 15.0 % Normal 11.0-15.0 [facility] Comment on above: Performed By: #### L IPD, TSH, CMP, VITD, CBCAD #### [facility] [address] [place], [place] [id number] Hematocrit (Bld) [Volume fraction] 39.2 % Normal 35.0-47.0 [facility] Comment on above: Performed By: #### L IPD, TSH, CMP, VITD, CBCAD #### [facility] [address] [place], [place] [id number] Hemoglobin (Bld) [Mass/Vol] 12.0 g/dL Normal 11.6-15.5 [facility] Comment on above: Performed By: #### L IPD, TSH, CMP, VITD, CBCAD #### [facility] [address] [place], [place] [id number] Lymphocytes (Bld) [#/Vol] 1.7 10*3/uL Normal 0.9-3.9 [facility] Comment on above: Performed By: #### L IPD, TSH, CMP, VITD, CBCAD #### [facility] [address] [place], [place] [id number] Lymphocytes/100 WBC (Bld) 27.5 % Normal [facility] Comment on above: Performed By: #### L IPD, TSH, CMP, VITD, CBCAD #### [facility] [address] [place], [place] [id number] MCH (RBC) [Entitic mass] 29.4 pg Normal 27.0-33.0 [facility] Comment on above: Performed By: #### L IPD, TSH, CMP, VITD, CBCAD #### [facility] [address] [place], [place] [id number] MCHC (RBC) [Mass/Vol] 30.6 g/dL Low 32.0-36.0 [facility] Comment on above: Performed By: #### L IPD, TSH, CMP, VITD, CBCAD #### [facility] [address] [place], [place] [id number] MCV (RBC) [Entitic vol] 96 fL Normal 80-100 [facility] Comment on above: Performed By: #### L IPD, TSH, CMP, VITD, CBCAD #### [facility] [address] [place], [place] [id number] Monocytes (Bld) [#/Vol] 0.6 10*3/uL Normal 0.2-0.9 [facility] Comment on above: Performed By: #### L IPD, TSH, CMP, VITD, CBCAD #### [facility] [address] [place], [place] [id number] Monocytes/100 WBC (Bld) 10.5 % Normal [facility] Comment on above: Performed By: #### L IPD, TSH, CMP, VITD, CBCAD #### [facility] [address], [place] [id number] Neutrophils (Bld) [#/Vol] 3.6 10*3/uL Normal 1.5-7.8 [facility] [employer] Comment on above: Performed By: #### L IPD, TSH, CMP, VITD, CBCAD #### [facility] [address], [place] [id number] Neutrophils/100 WBC (Bld) 58.6 % Normal [facility] Specialist Comment on above: Performed By: #### L IPD, TSH, CMP, VITD, CBCAD #### [facility] [address], [place] [id number] Platelet mean volume (Bld) [Entitic vol] 11.40 fL Normal 7.50-12.50 [facility] Specialist Comment on above: Performed By: #### L IPD, TSH, CMP, VITD, CBCAD #### [facility] [address], [place] [id number] Platelets (Bld) [#/Vol] 193 10*3/uL Normal 140-400 [facility] [employer] Comment on above: Performed By: #### L IPD, TSH, CMP, VITD, CBCAD #### [facility] [address], [place] [id number] RBC (Bld) [#/Vol] 4.08 10*6/uL Normal 3.90-5.20 [facility] [employer] Comment on above: Performed By: #### L IPD, TSH, CMP, VITD, CBCAD #### [facility] [address], [place] [id number] RDW-SD 52.8 fL High 37.0-50.0 [facility] [employer] Comment on above: Performed By: #### L IPD, TSH, CMP, VITD, CBCAD #### [facility] [address], [place] [id number] WBC (Bld) [#/Vol] 6.1 10*3/uL Normal 3.8-11.0 Marcia oliveira [place] [employer] Comment on above: Performed By: #### L IPD, TSH, CMP, VITD, CBCAD #### [facility] [address], [place] [id number] Comprehensive Metabolic [facility] 07-16-2021 Albumin [Mass/Vol] 4.1 g/dL Normal 3.6-5.1 [facility] [employer] Block Maker Comment on above: Performed By: #### L IPD, TSH, CMP, VITD, CBCAD #### [facility] [address], [place] [id number] Albumin/Globulin [Mass ratio] 1.5 {ratio} Normal 1.0-2.5 [facility] [employer] Comment on above: Performed By: #### L IPD, TSH, CMP, VITD, CBCAD #### [facility] [address], [place] [id number] ALP [Catalytic activity/Vol] 104 U/L Normal 35-119 [facility] [employer] Comment on above: Performed By: #### L IPD, TSH, CMP, VITD, CBCAD #### [facility] [address], [place] [id number] ALT [Catalytic activity/Vol] 7 U/L Normal 6-33 [facility] [employer] Comment on above: Result Comment: 02/11 Female reference range changed. Performed By: #### L IPD, TSH, CMP, VITD, CBCAD #### [facility] [address], [place] [id number] Anion gap [Moles/Vol] 18 mmol/L Normal 12-20 [facility] Specialist Comment on above: Result Comment: Effe ctive 03/19/2019 reference range changed. Performed By: #### L IPD, TSH, CMP, VITD, CBCAD #### [facility] [address], [place] [id number] AST [Catalytic activity/Vol] 16 U/L Normal 9-34 [facility] Comment on above: Performed By: #### L IPD, TSH, CMP, VITD, CBCAD #### [facility] [address], [place] [id number] Bilirubin [Mass/Vol] 0.92 mg/dL Normal 0.30-1.20 [facility] Comment on above: Performed By: #### L IPD, TSH, CMP, VITD, CBCAD #### [facility] [address], [place] [id number] BUN/CREA 29 Ratio High 6-22 [facility] Comment on above: Performed By: #### L IPD, TSH, CMP, VITD, CBCAD #### [facility] [address], [place] [id number] Calcium [Mass/Vol] 9.5 mg/dL Normal 8.6-10.2 [facility] Comment on above: Performed By: #### L IPD, TSH, CMP, VITD, CBCAD #### [facility] [address], [place] [id number] Chloride [Moles/Vol] 99 mmol/L Normal 98-107 [facility] Comment on above: Performed By: #### L IPD, TSH, CMP, VITD, CBCAD #### [facility] [address], [place] [id number] CO2 [Moles/Vol] 26 mmol/L Normal 20-31 [facility] Comment on above: Performed By: #### L IPD, TSH, CMP, VITD, CBCAD #### [facility] [address], [place] [id number] Creatinine [Mass/Vol] 0.5 mg/dL Low 0.6-1.4 [facility] Comment on above: Performed By: #### L IPD, TSH, CMP, VITD, CBCAD #### [facility] [address], [place] [id number] eGFRAA 135 mL/min/1.73m2 Normal >60 [facility] Comment on above: Performed By: #### L IPD, TSH, CMP, VITD, CBCAD #### [facility] [address], [place] [id number] eGFRNAA 111 mL/min/1.73m2 Normal >60 [facility] Specialist Comment on above: Performed By: #### L IPD, TSH, CMP, VITD, CBCAD #### [facility] [address], [place] [id number] Globulin (S) [Mass/Vol] 2.7 g/dL Normal 1.9-3.7 [facility] Comment on above: Performed By: #### L IPD, TSH, CMP, VITD, CBCAD #### [facility] [address], [place] [id number] Glucose [Mass/Vol] 222 mg/dL High 65-99 [facility] [employer] Comment on above: Result Comment: For FASTING Glucose --- ADA reference ranges: Normal 65-99 mg/dl Prediabetes 100-125 Diabetes >/= 126 Performed By: #### L IPD, TSH, CMP, VITD, CBCAD #### [facility] [address], [place] [id number] Potassium [Moles/Vol] 4.7 mmol/L Normal 3.5-5.5 [facility] Comment on above: Performed By: #### L IPD, TSH, CMP, VITD, CBCAD #### [facility] [address], [place] [id number] Protein [Mass/Vol] 6.8 g/dL Normal 6.1-8.1 [facility] [employer] Comment on above: Performed By: #### L IPD, TSH, CMP, VITD, CBCAD #### [facility] [address], [place] [id number] Sodium [Moles/Vol] 138 mmol/L Normal 135-146 [facility] [employer] Comment on above: Performed By: #### L IPD, TSH, CMP, VITD, CBCAD #### [facility] [address], [place] [id number] Urea nitrogen [Mass/Vol] 15 mg/dL Normal 7-25 [facility] [employer] Comment on above: Performed By: #### L IPD, TSH, CMP, VITD, CBCAD #### [facility] [address], [place] [id number] Hemoglobin A1Con 07-16-2021 EAG 194.38 Normal [facility] Specialist Comment on above: Performed By: #### A 1C #### [facility] [address], [place] [id number] HbA1c (Bld) [Mass fraction] 8.4 % High 4.0-6.0 [facility] [employer] Comment on above: Performed By: #### A 1C #### [facility] [address], [place] [id number] Lipid Panelon 07-16-2021 Cholesterol [Mass/Vol] 172 mg/dL Normal 125-200 [facility] [employer] Comment on above: Result Comment: Low risk < 200mg/dL Borderline risk 201-239 mg/dl High risk > or equal to 240 Performed By: #### L IPD, TSH, CMP, VITD, CBCAD #### [facility] [address], [place] [id number] Cholesterol in HDL [Mass/Vol] 57 mg/dL Normal >40 [facility] [employer] Comment on above: Result Comment: High Cardiovascular Risk HDL <40 mg/dL Low Cardiovascular Risk HDL > or equal to 60 mg/dl Performed By: #### L IPD, TSH, CMP, VITD, CBCAD #### [facility] [address], [place] [id number] Cholesterol in LDL [Mass/Vol] 88 mg/dL Normal [facility] [employer] Comment on above: Result Comment: LDL ATP III CLASSIFICATION LDL less than 100 mg/dl Optimal LDL 100-129 mg/dl Near or above optimal LDL 130-159 Borderline high LDL 160-189 High LDL greater than 189 mg/dl Very High Performed By: #### L IPD, TSH, CMP, VITD, CBCAD #### [facility] [address], [place] [id number] Cholesterol in VLDL [Mass/Vol] 27 mg/dL Normal [facility] [employer] Comment on above: Performed By: #### L IPD, TSH, CMP, VITD, CBCAD #### [facility] [address], [place] [id number] Cholesterol.total/Cho lesterol in HDL [Mass ratio] 3 {ratio} Normal [facility] Specialist Comment on above: Performed By: #### L IPD, TSH, CMP, VITD, CBCAD #### [facility] [address], [place] [id number] Triglyceride [Mass/Vol] 133 mg/dL Normal 30-150 [facility] [employer] Comment on above: Result Comment: TRIG ATPIII CLASSIFICATIONS TRIG less than 150 mg/dl Normal TRIG 150-199 mg/dl Borderline High TRIG 200-500 mg/dl High TRIG greather than 500 mg/dl Very High Performed By: #### L IPD, TSH, CMP, VITD, CBCAD #### [facility] [address], [place] [id number] TSHon 07-16-2021 TSH 1.480 uIU/mL Normal 0.400-4.50 0 [facility] [employer] Comment on above: Performed By: #### L IPD, TSH, CMP, VITD, CBCAD #### [facility] [address], [place] [id number] Vitamin B12on 07-16-2021 Cobalamin (Vitamin B12) [Mass/Vol] 1009 pg/mL High 211-946 [facility] [employer] Comment on above: Performed By: #### B 12 #### [facility] [address], [place] [id number] Vitamin D 25-OHon 07-16-2021 VIT D 25 OH 56 ng/ml Normal >29 [facility] [employer] Comment on above: Result Comment: Frederic min D Status Deficiency <20 ng/mL Insufficiency 20-29 ng/mL Optimal 30-100 ng/mL Possible Toxicity >=150 ng/mL Performed By: #### L IPD, TSH, CMP, VITD, CBCAD #### [facility] [address], [place] [id number] Prothrombin Time INRon 06-10 INR Coag (PPP) [Relative time] 5.2 {INR} [employer] [facility] Other Prothrombin Time INR [facility] [employer] Other Prothrombin Time INRon 05-26 INR Coag (PPP) [Relative time] 3.9 {INR} [employer] [facility] Other Prothrombin Time INR [employer] Other Prothrombin Time INRon 03-25 INR Coag (PPP) [Relative time] 3.2 {INR} [employer] [facility] Other Prothrombin Time INR [employer] Other Prothrombin Time INRon 02-25 INR Coag (PPP) [Relative time] 1.9 {INR} [employer] [facility] Other Prothrombin Time INR [employer] Other Prothrombin Time INRon 01-28 INR Coag (PPP) [Relative time] 2.2 {INR} [employer] [facility] Other Prothrombin Time INR [employer] Other Prothrombin Time INRon 12-10 INR Coag (PPP) [Relative time] 2.4 {INR} [employer] [facility] Other Prothrombin Time INR [employer] Other Office Visit (Neuro-Movement -PD)on 11-01-2017 Office Visit (Jfkah-Tekycjgi-AO) History of Present IllnessALTON BARKER is here [...] asleep and no acting out of dreams. [place] Sleepiness Scale is 14. She reports concern [...] MG Oral Tablet Vitals Vital Signs Recorded: [id number] 01:33PMHeart Doil14Gvzcwcnc727, SGHKeqrtdfio75, TOLSuvwrc391 lb 1 ozBMI Lpxegzdufl95.59BSA Calculated2.27 Physical ExamConstitutional: General appearance: no acute [...] disease; KISHOR = N; Verified Transmission to [facility] 2465; Last Updated By: System[employer] Environmental; 10/26/2017 2:12:16 PM Provider Josefina is a [...] and treatment options. 25 minutes was spent igbt-ey-hebm in the visit. Patient Discussion/SummaryI am recommending starting Sinemet 0.5 tablets three times daily for 1 week with meals and then increase the first dose to 1 tablet. Follow up in 3 months. Signatures Electronically signed by : Tyree Perez MD; Nov 01 2017 8:36AM EST (Author) Normal [employer] Vital Signs Date Time Vital Sign Value Performing Clinician Faci lity 06-23-2023 14:53-0400 Body height 167.6 cm Gloria Perez APRN.CNP Work Phone: [facility] 06-23-2023 14:53-0400 Body weight 107.6 kg Gloria Perez APRN.CNP Work Phone: [facility] 06-23-2023 14:53-0400 SaO2% (BldA) [Mass fraction] 99 % Gloria Perez APRN.CNP Work Phone: [facility] 01-20-2023 14:52-0500 Body height 167.6 cm Gloria Perez APRN.CNP Work Phone: [facility] 01-20-2023 14:52-0500 SaO2% (BldA) [Mass fraction] 98 % Gloria Perez FOUNDATION STAGE TEACHER.SILK SCREEN OPERATOR Work Phone: [facility] 07-08-2022 14:54-0400 Body height 167.6 cm Gloria Perez FOUNDATION STAGE TEACHER.SILK SCREEN OPERATOR Work Phone: [facility] 07-08-2022 14:54-0400 Body weight 85.14 kg Gloria Perez FOUNDATION STAGE TEACHER.SILK SCREEN OPERATOR Work Phone: [facility] 07-08-2022 14:54-0400 SaO2% (BldA) [Mass fraction] 98 % Gloria Perez FOUNDATION STAGE TEACHER.SILK SCREEN OPERATOR Work Phone: [facility] 05-20-2022 09:30-0500 Diastolic blood pressure 60 mm[Hg] DO Honey Vaschak Work Phone: [facility] 05-20-2022 09:30-0500 Heart rate 89 /min DO Honey Vaschak Work Phone: [facility] 05-20-2022 09:30-0500 Systolic blood pressure 106 mm[Hg] DO Honey Vaschak Work Phone: [facility] 11-25-2021 16:00-0400 Body temperature 97.4 [degF] DO Honey Vaschak Work Phone: [facility] 11-25-2021 16:00-0400 Diastolic blood pressure 61 mm[Hg] DO Honey Vaschak Work Phone: [facility] 11-25-2021 16:00-0400 Heart rate 98 /min DO Honey Vaschak Work Phone: [facility] 11-25-2021 16:00-0400 Respiratory rate 16 /min DO Honey Vaschak Work Phone: [facility] 11-25-2021 16:00-0400 SaO2% (BldA) [Mass fraction] 98 % DO Honey Vaschak Work Phone: [facility] 11-25-2021 16:00-0400 Systolic blood pressure 96 mm[Hg] DO Honey Vaschak Work Phone: [facility] 11-24-2021 12:10-0400 Body height 167.64 cm DO Honey Vaschak Work Phone: [facility] 11-22-2021 06:00-0400 Body weight 92.8 kg DO Honey Vaschak Work Phone: [facility] 11-13-2021 21:44-0400 Body temperature 98.1 [degF] DO Honey Vaschak Work Phone: [facility] 11-13-2021 21:44-0400 Diastolic blood pressure 71 mm[Hg] DO Honey Vaschak Work Phone: [facility] 11-13-2021 21:44-0400 Heart rate 92 /min DO Honey Vaschak Work Phone: [facility] 11-13-2021 21:44-0400 Respiratory rate 18 /min DO Honey Vaschak Work Phone: [facility] 11-13-2021 21:44-0400 SaO2% (BldA) [Mass fraction] 98 % DO Honey Vaschak Work Phone: [facility] 11-13-2021 21:44-0400 Systolic blood pressure 112 mm[Hg] DO Honey Vaschak Work Phone: [facility] 11-12-2021 16:00-0400 Body temperature 97.6 [degF] DO Honey Vaschak Work Phone: [facility] 11-12-2021 16:00-0400 Diastolic blood pressure 63 mm[Hg] DO Honey Vaschak Work Phone: [facility] 11-12-2021 16:00-0400 Heart rate 96 /min DO Honey Vaschak Work Phone: [facility] 11-12-2021 16:00-0400 Respiratory rate 16 /min DO Honey Vaschak Work Phone: [facility] 11-12-2021 16:00-0400 SaO2% (BldA) [Mass fraction] 98 % DO Honey Vaschak Work Phone: [facility] 11-12-2021 16:00-0400 Systolic blood pressure 98 mm[Hg] DO Honey Vaschak Work Phone: [facility] 11-12-2021 10:30-0400 Body height 167.64 cm DO Honey Vaschak Work Phone: [facility] 11-11-2021 15:00-0400 Body weight 92.98 kg DO Honey Vaschak Work Phone: [facility] 11-11-2021 08:00-0400 Body temperature 97.9 [degF] DO Honey Vaschak Work Phone: [facility] 11-11-2021 08:00-0400 Diastolic blood pressure 67 mm[Hg] DO Honey Vaschak Work Phone: [facility] 11-11-2021 08:00-0400 Heart rate 87 /min DO Honey Vaschak Work Phone: [facility] 11-11-2021 08:00-0400 SaO2% (BldA) [Mass fraction] 95 % DO Honey Vaschak Work Phone: [facility] 11-11-2021 08:00-0400 Systolic blood pressure 103 mm[Hg] DO Honey Vaschak Work Phone: [facility] 11-11-2021 05:58-0400 Respiratory rate 17 /min DO Honey Vaschak Work Phone: [facility] 11-11-2021 04:10-0400 Body weight 93.3 kg DO Honey Vaschak Work Phone: [facility] 11-05-2021 16:33-0400 Body height 167.64 cm DO Honey Vaschak Work Phone: [facility] 10-19-2021 23:25-0400 Diastolic blood pressure 78 mm[Hg] DO Honey Vaschak Work Phone: [facility] 10-19-2021 23:25-0400 Heart rate 83 /min DO Honey Vaschak Work Phone: [facility] 10-19-2021 23:25-0400 Respiratory rate 18 /min DO Honey Vaschak Work Phone: [facility] 10-19-2021 23:25-0400 SaO2% (BldA) [Mass fraction] 100 % DO Honey Vaschak Work Phone: [facility] 10-19-2021 23:25-0400 Systolic blood pressure 164 mm[Hg] DO Honey Vaschak Work Phone: [facility] 10-19-2021 19:51-0400 Body temperature 97.6 [degF] DO Honey Vaschak Work Phone: [facility] 10-19-2021 19:48-0400 Body height 167.64 cm DO Honey Vaschak Work Phone: [facility] 10-19-2021 19:48-0400 Body weight 98.6 kg DO Honey Vaschak Work Phone: [facility] 10-01-2021 11:58-0400 Body height 167.6 cm Gloria Perez APRN.SILK SCREEN OPERATOR Work Phone: [facility] 10-01-2021 11:58-0400 Body weight 101.06 kg Gloria Perez APRN.SILK SCREEN OPERATOR Work Phone: [facility] 10-01-2021 11:58-0400 SaO2% (BldA) [Mass fraction] 98 % Gloria Perez FOUNDATION STAGE TEACHER.SILK SCREEN OPERATOR Work Phone: [facility] 09-28-2021 02:06-0400 Heart rate 86 /min DO Honey Rabago Work Phone: [facility] 09-28-2021 00:01-0400 Body height 167.64 cm DO Honey Rabago Work Phone: [facility] 09-28-2021 00:01-0400 Body mass index (BMI) [Ratio] 35.5 kg/m2 DO Honey Hima Work Phone: [facility] 09-28-2021 00:01-0400 Body weight 99.79 kg DO Honey Rabago Work Phone: [facility] 09-27-2021 23:57-0400 Body temperature 99.6 [degF] DO Honey Rabago Work Phone: [facility] 09-27-2021 23:57-0400 Diastolic blood pressure 59 mm[Hg] DO Honey Rabago Work Phone: [facility] 09-27-2021 23:57-0400 Respiratory rate 16 /min DO Honey Rabago Work Phone: [facility] 09-27-2021 23:57-0400 SaO2% (BldA) [Mass fraction] 97 % DO Honey Rabago Work Phone: [facility] 09-27-2021 23:57-0400 Systolic blood pressure 125 mm[Hg] DO Honey Rabago Work Phone: [facility] 07-31-2020 16:20-0400 Body height 167.64 cm Honey GilmanM/A-COM Work Phone: [facility] 07-31-2020 16:20-0400 Body mass index (BMI) [Ratio] 41.6 kg/m2 Honey MukulM/A-COM Work Phone: [facility] 07-31-2020 16:20-0400 Body weight 117.02 kg Honey Mukulaura Work Phone: [facility] 07-31-2020 16:19-0400 Body temperature 98.1 [degF] Honey Rabago Work Phone: [facility] 07-31-2020 16:19-0400 Diastolic blood pressure 70 mm[Hg] Honey Rabago Work Phone: [facility] 07-31-2020 16:19-0400 Heart rate 90 /min Honey Rabago Work Phone: [facility] 07-31-2020 16:19-0400 Respiratory rate 18 /min Honey Rabago Work Phone: [facility] 07-31-2020 16:19-0400 SaO2% (BldA) [Mass fraction] 98 % Honey Rabago Work Phone: [facility] 07-31-2020 16:19-0400 Systolic blood pressure 155 mm[Hg] Honey Rabago Work Phone: [facility] Encounters Encounter Date Encounter Type Care Provider Facility Start: 10-25-2023 End: 10-25-2023 ambulatory GLORIA PEREZ Facility:[facility] Start: 08-18-2023 End: 08-18-2023 ambulatory URBANO HUTTON Not Available Start: 08-16-2023 End: 08-16-2023 ambulatory VALORIE SULLIVAN Not Available Start: 07-29-2023 End: 07-29-2023 ambulatory HONEY RABAGO Not Available Start: 06-23-2023 End: 06-23-2023 ambulatory GLORIA PEREZ Facility:[facility] Start: 06-23-2023 End: 06-23-2023 Patient encounter procedure Gloria Perez FOUNDATION STAGE TEACHER.SILK SCREEN OPERATOR Work Phone: Neurology Comment on above: [...] Unsolicited Start: 03-28-2023 End: 03-28-2023 ambulatory MAC VILLASENOR Not Available Start: 03-28-2023 End: 03-28-2023 ambulatory HONEY RABAGO Not Available Start: 02-11-2023 Telephone encounter Gloria blankenship APRN.SILK SCREEN OPERATOR Work Phone: Neurology Comment on above: Medication Problem Start: 01-25-2023 End: 01-25-2023 ambulatory URBANO Lamb HUTTON Not Available Start: 01-20-2023 End: 01-20-2023 ambulatory HONEY RABAGO Facility:[facility] Start: 01-20-2023 End: 01-20-2023 Patient encounter procedure Gloria Perez APRN.SILK SCREEN OPERATOR Work Phone: Neurology Comment on above: Parkinson's disease without dyskinesia, with fluctuating manifestations (Primary Dx); Depression with anxiety Start: 07-14-2022 End: 07-14-[address] HONEY RABAGO Facility:[facility] Start: 07-12-2022 End: 07-12-[address] HONEY RABAGO Facility:[facility] Start: 07-08-2022 End: 07-08-2022 Patient encounter procedure Gloria Perez APRN.SILK SCREEN OPERATOR Work Phone: Neurology Comment on above: Parkinson's disease (HCC) (Primary Dx); Depression with anxiety Start: 06-01-2022 End: 06-01-[address] HONEY RABAGO Facility:[facility] Start: 05-31-2022 ambulatory Gloria Perez APRN.SILK SCREEN OPERATOR Work Phone: Neurology Comment on above: UPDATE: ALTON CRAWFORD : [birth year] Start: 05-20-2022 End: 05-20-2022 ambulatory Honey Rabago Facility:[facility] Start: 05-20-2022 End: 05-20-2022 ambulatory DO Honey Rabago Work Phone: [facility] Work Phone: Start: 05-20-2022 End: 05-20-2022 Discharged Recurring DO Honey Danilokoki Work Phone: [facility]-Infusion Therapy - O/P Work Phone: Start: 04-13-2022 Refill Gloria Perez APRN.SILK SCREEN OPERATOR Work Phone: Neurology Comment on above: Refill Request Start: 02-15-2022 Telephone encounter Gloria blankenship APRN.SILK SCREEN OPERATOR Work Phone: Neurology Comment on above: Patient Update Start: 02-02-2022 End: 02-03-[address] HONEY RABAGO Facility:[facility] Start: 01-08-2022 End: 01-08-2022 ambulatory Anu Alva Other [employer] Other Start: 01-08-2022 Telephone encounter Anu Alva [facility] Start: 12-30-2021 End: 12-30-2021 ambulatory Honey Rabago Facility:[facility] Start: 12-30-2021 End: 12-30-2021 Patient encounter procedure DO Honey Rabago Work Phone: [facility] Start: 12-29-2021 End: 12-30-[address] HNOEY RABAGO Facility:[facility] Start: 12-21-2021 End: 12-21-[address] HONEY RABAGO Facility:[facility] Start: 12-15-2021 (Repeat [facility]) Anu Alva [facility] Start: 12-15-2021 End: 12-15-2021 ambulatory Anu Alva Other [employer] Other Start: 12-14-2021 End: 12-14-[address] HONEY RABAGO Facility:[facility] Start: 12-01-2021 (Repeat [facility]) Anu Alva [facility] Start: 12-01-2021 End: 12-01-2021 ambulatory Anu Alva Other [employer] Other Start: 11-30-2021 End: 11-30-[address] HONEY RABAGO Facility: Start: 11-11-2021 End: 11-25-2021 Evaluation and management of inpatient Alcides Moya Facility:[facility] Start: 11-11-2021 End: 11-25-2021 Evaluation and management of inpatient DO Honey Rabago Work Phone: [facility] Start: 11-05-2021 End: 11-05-2021 ambulatory Oswaldo Almonte Other [email or web address] [facility] [employer] Other Start: 11-05-2021 Patient encounter procedure Oswaldo Almonte [facility] Start: 11-05-2021 Telephone encounter Gloria blankenship FOUNDATION STAGE TEACHER.SILK SCREEN OPERATOR Work Phone: Neurology Comment on above: Appointment; Patient Update (Called to schedule follow up. Patient in hospital.) Start: 11-04-2021 End: 11-11-2021 ambulatory Honey Rabago Facility:[facility] Start: 11-04-2021 End: 11-11-2021 Evaluation and management of inpatient DO Honey Rabago Work Phone: [facility] Start: 10-26-2021 ambulatory Gloria Perez FOUNDATION STAGE TEACHER.SILK SCREEN OPERATOR Work Phone: Neurology Comment on above: ALTON BARKER UPDATE MESSAGE #3 Start: 10-22-2021 Registered Recurring DO Honey Rabago Work Phone: [facility] Start: 10-22-2021 ([facility] R A/c) [facility] Jenna lopez A/C Anu Alva [facility] Start: 10-22-2021 End: 10-23-2021 ambulatory Honey Rabago [facility] [employer] Other Start: 10-19-2021 End: 10-20-2021 Emergency department patient visit Holger Dorado Facility:[facility] Start: 10-19-2021 End: 10-20-2021 Emergency department patient visit DO Honey Rabago Work Phone: [facility]-Emergency Room Start: 10-01-2021 End: 10-01-2021 Patient encounter procedure Gloria Perez APRN.CNP Work Phone: Neurology Comment on above: Recurrent episodes o f unresponsiveness (Primary Dx); Parkinson's disease (HCC); Depression with anxiety; Fatigue, unspecified type; Excessive daytime sleepiness Start: 09-29-2021 ([facility] R A/c) [facility] Re peat A/C Anu Fitt [facility] Start: 09-29-2021 End: 09-29-2021 ambulatory Anu Fitt Other [employer] Other Start: 09-28-2021 End: 09-28-2021 Emergency department patient visit Sumanth Lowe Facility:[facility] Start: 09-27-2021 End: 09-28-2021 Emergency department patient visit DO Honey Rabago Work Phone: [facility] [facility] Start: 09-23-2021 End: 09-23-2021 ambulatory Anu Fitt Other [employer] Other Start: 09-23-2021 Telephone encounter Anu Alva [facility] Start: 08-26-2021 ([facility] R A/c) [facility] Re peat A/C Anu Fitt [facility] Start: 08-26-2021 End: 08-26-2021 ambulatory Anu Fitt Other [employer] Other Start: 08-05-2021 ([facility] R A/c) [facility] Re peat A/C Anu Fitt [facility] Start: 08-05-2021 End: 08-05-2021 ambulatory Anu Fitt Other [employer] Other Start: 07-20-2021 ([facility] R A/c) [facility] Re peat A/C Anu Fitt [facility] Start: 07-20-2021 End: 07-20-2021 ambulatory Anu Fitt Other [employer] Other Start: 06-10-2021 ([facility] R A/c) [facility] Re peat A/C Anu Fitt [facility] Start: 06-10-2021 End: 06-10-2021 ambulatory Anu Fitt Other [employer] Other Start: 05-26-2021 ([facility] R A/c) [facility] Re peat A/C Anu Fitt [facility] Start: 05-26-2021 End: 05-26-2021 ambulatory Anu Fitt Other [employer] Other Start: 05-19-2021 End: 05-19-2021 ambulatory Anu Fitt Other [employer] Other Start: 05-19-2021 Telephone encounter Anu Fitt [facility] Start: 04-21-2021 End: 04-21-2021 ambulatory Anu Fitt Other [employer] Other Start: 04-21-2021 Telephone encounter Anu Fitt [facility] Start: 04-15-2021 End: 04-15-2021 ambulatory Anu Fitt Other [employer] Other Start: 04-15-2021 Telephone encounter Anu Fitt [facility] Start: 03-25-2021 ([facility] R A/c) [facility] Re peat A/C Anu Fitt [facility] Start: 03-25-2021 End: 03-25-2021 ambulatory Anu Fitt Other [employer] Other Start: 02-25-2021 ([facility] R A/c) [facility] Re peat A/C Anu Fitt [facility] Start: 02-25-2021 End: 02-25-2021 ambulatory Anu Fitt Other [employer] Other Start: 01-28-2021 ([facility] R A/c) [facility] Re peat A/C Anu Fitt [facility] Start: 01-28-2021 End: 01-28-2021 ambulatory Anu Fitt Other [employer] Other Start: 01-21-2021 End: 01-21-2021 ambulatory Anu Fitt Other [employer] Other Start: 01-21-2021 Telephone encounter Anu Juan Miguelt [facility] Start: 01-07-2021 End: 01-07-2021 ambulatory Anu Fitt Other [employer] Other Start: 01-07-2021 Telephone encounter Anu Fitt [facility] Start: 12-10-2020 ([facility] R A/c) [facility] Re peat A/C Anu Fitt [facility] Start: 07-31-2020 End: 07-31-2020 Emergency department patient visit Honey Rabago Work Phone: -Emergency Room Start: 06-18-2020 Registered Recurring Honey guerrero Work Phone: -[facility] Procedures Date Procedure Procedure Detail Performing Clinician [...] Adult depression scr eening assessment Gloria Perez APRN.SILK SCREEN OPERATOR Work Phone: Start: 09-28-2021 Plain chest [...] Detail Author Start: 03-28-2026 Diabetes Screening Diabetes Screenin [facility] Start: 01-23-2024 Glaucoma screening Diabetes: R etinopathy Screening [facility] Start: 12-04-2023 DIABETES SCREEN DIABETES SCREEN [facility] Start: 12-04-2023 Diabetes Screening Diabetes Screenin [facility] Start: 10-06-2023 End: 10-06-2023 Patient encounter procedure 10/06/2023 10:50 AM EDT Office Visit [facility] [address] [place] [id number] Nicol Aponte MD [address] [place] [address] [facility] Start: 07-29-2023 Medicare Annual Wellness (AWV) Medicare Annual Wellness (AWV) [facility] Start: 07-27-2023 End: 07-27-2023 Patient encounter procedure 07/27/2023 2:00 PM EDT Office Visit [facility] [address] [place] [id number] Honey Rabago DO [address] [place] [address] [facility] Start: 06-27-2023 Hemoglobin A1c measurement Diabetes: Hemoglobin A1C [facility] Start: 05-04-2023 End: 05-04-2023 Patient encounter procedure 05/04/2023 1:00 PM EST Procedure Visit [facility] POD[facility] [address] [place] [id number] Urbano Hutton DPM [address] [place] [address] [facility] Start: 03-14-2023 Advance Directive Discussion Advance Directive Discussion [facility] Start: 11-12-2022 Covid-19 Vaccine ( season) Covid-19 Vaccine () [facility] Start: 09-29-2022 Adult depression screening assessment DEPRESSION SCREENING [facility] Start: 03-14-2022 ADVANCE DIRECTIVE DISCUSSION ADVANCE DIRECTIVE DISCUSSION [facility] Start: 03-14-2022 DEPRESSION ASSESSMENT DEPRESSION ASS ESSMENT [facility] Start: 12-11-2021 [facility] Work Phone: Start: 12-10-2021 [facility] Work Phone: Start: 12-09-2021 [facility] Work Phone: Start: 12-08-2021 [facility] Work Phone: Start: 12-07-2021 [facility] Work Phone: Start: 12-06-2021 [facility] Work Phone: Start: 12-05-2021 [facility] Work Phone: Start: 12-04-2021 [facility] Work Phone: Start: 12-03-2021 [facility] Work Phone: Start: 12-02-2021 [facility] Work Phone: Start: 12-01-2021 [facility] Work Phone: Start: 11-30-2021 [facility] Work Phone: Start: 11-29-2021 [facility] Work Phone: Start: 11-28-2021 [facility] Work Phone: Start: 11-27-2021 [facility] Work Phone: Start: 11-26-2021 [facility] Work Phone: Start: 11-25-2021 [facility] Work Phone: Start: 11-24-2021 End: 11-24-2021 [facility] Start: 11-23-2021 [facility] Start: 11-22-2021 [facility] Work Phone: Start: 11-21-2021 [facility] Work Phone: Start: 11-20-2021 [facility] Work Phone: Start: 11-19-2021 [facility] Work Phone: Start: 11-18-2021 [facility] Work Phone: Start: 11-17-2021 [facility] Work Phone: Start: 11-16-2021 [facility] Work Phone: Start: 11-15-2021 [facility] Work Phone: Start: 11-14-2021 [facility] Work Phone: Start: 11-13-2021 [facility] Work Phone: Start: 11-12-2021 Influenza vaccination INFLUENZA (#1) [facility] Start: 11-11-2021 Administration of prophylactic treatment [facility] Start: 11-11-2021 Hospital admission [facility] Start: 11-11-2021 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 rotary soil stabilizer [facility] Start: 11-11-2021 [facility] Work Phone: Start: 11-11-2021 Evaluation and management of inpatient Back pain [facility] Start: 11-09-2021 [facility] Start: 11-05-2021 MR lumbar spine wo con MR lumbar spi ne wo [facility] Start: 11-05-2021 Administration of prophylactic treatment [facility] Start: 11-05-2021 Administration of prophylactic treatment [facility] Start: 11-05-2021 Consultation [facility] Start: 11-04-2021 Referral to psychiatrist [facility] Start: 11-04-2021 Hospital admission [facility] Start: 11-04-2021 End: 11-11-2021 Evaluation and management of inpatient Back pain [facility] Start: 11-04-2021 CT of head without contrast CT head/brain wo [facility] Start: 11-04-2021 Computed tomography of thoracic spine without contrast CT thoracic spine wo [facility] Start: 11-04-2021 CT cervical spine without contrast CT cervical spine wo [facility] Start: 11-04-2021 CT of lumbar spine without contrast CT lumbar spine wo [facility] Start: 10-22-2021 Registered Recurring Registered Recu rring [facility] Start: 07-28-2021 Urine screening for protein Diabetes: Urine Protein Screening [facility] Start: 05-20-2021 COVID-19 VACCINE (4 - Booster for Moderna series) COVID-19 VACCINE (4 - Booster for Moderna series) [facility] Start: 03-17-2021 COVID-19 VACCINE (4 - Booster for Moderna series) COVID-19 VACCINE (4 - Booster for Moderna series) [facility] Start: 03-14-2021 ADVANCE DIRECTIVE DISCUSSION ADVANCE DIRECTIVE DISCUSSION [facility] Start: 03-14-2021 DEPRESSION ASSESSMENT DEPRESSION ASS ESSMENT [facility] Start: 07-23-2009 Urine microalbumin profile DTaP,Tdap,Td Vaccine (1 - Tdap) [facility] Start: 2006 BONE DENSITY BONE DENSITY [facility] Start: 2006 Bone Density Screening Bone Density Screening [facility] Start: 2006 PNEUMOCOCCAL: 65+ (1 - PCV) PNEUMOCOCCAL: 65+ (1 - PCV) [facility] Start: 2001 RSV Vaccine (1 - 1-d ose 60+ series) RSV Vaccine (1 - 1-dose 60+ series) [facility] Start: 07-14-1991 SHINGRIX VACCINE (1 of 2) SHINGRIX VACCINE (1 of 2) [facility] Start: 1960 Urine microalbumin profile DTAP,TDAP,TD (1 - Tdap) [facility] End: 10-04-2022 EPIL EEG ROUTINE EPIL EEG ROUTINE NEUROLOGY Routine Recurrent episodes of unresponsiveness 1 Occurrences starting 10/04/2021 until 10/04/2022 [facility] Work Phone: Comment on above: 1 Occurrences starti ng 10/04/2021 until 10/04/2022 Patient Education [facility] Work Phone: Patient referral [facility] Immunizations Immunization Date Immunization Notes Care Provider Benedict champagne 12-15-2022 Influenza, Seasonal, Quadrivalent, Adjuvanted Generic Provider [facility] 01-25-2022 influenza, high dose seasonal, preservative-free Generic Provider [facility] 12-03-2020 influenza, high dose seasonal, preservative-free Generic Provider [facility] 12-24-2019 Seasonal trivalent influenza vaccine, adjuvanted, preservative free Generic Provider [facility] 02-05-2019 influenza, high dose seasonal, preservative-free Anu Alva Other [place] [employer] Other 02-10-2018 influenza, high dose seasonal, preservative-free Generic Provider [facility] 05-03-2017 influenza, injectabl e, quadrivalent, preservative free Generic Provider [facility] 12-25-2015 influenza, high dose seasonal, preservative-free Generic Provider [facility] 12-17-2014 influenza, seasonal, injectable, preservative free Generic Provider [facility] 10-02-2014 pneumococcal conjuga te vaccine, 13 valent Generic Provider [facility] 11-28-2013 influenza, high dose seasonal, preservative-free Generic Provider [facility] 10-01-2013 pneumococcal polysaccharide vaccine, 23 valent Generic Provider [facility] 01-13-2012 seasonal influenza, intradermal, preservative free Generic Provider [facility] 01-09-2010 seasonal influenza, intradermal, preservative free Generic Provider [facility] 07-22-2009 tetanus and diphther ia toxoids, adsorbed, preservative free, for adult use (2 Lf of tetanus toxoid and 2 Lf of diphtheria toxoid) Generic Provider [facility] 12-16-2008 seasonal influenza, intradermal, preservative free Generic Provider [facility] Payers Date Payer Category Payer Medicare [id number] 2021 Medicare [id number] 2021 Medicare [id number] 2021 Unknown ANTHEM BLUE [facility] S AND BLUE SHIELD ANTHEM MEDIBLUE O [id number] 2021-Present [phone] [address] [place] [address] [facility] [id number] 2021 Unknown [id number] 2016 Self-pay [id number] 1959 Medicare [id number] 1959 Unknown [id number] 1941 Unknown [id number] 2.16.840.1.126835.3.579.2.5 93 1941 Unknown [id number] 2.16.840.1.881246.3.579.2.5 93 1941 Unknown [id number] 2.16.840.1.241880.3.579.2.5 93 1941 Unknown [id number] 2.16.840.1.958128.3.579.2.5 93 1941 Unknown [id number] 2.16.840.1.093137.3.579.2.5 93 1941 Unknown [id number] 2.16.840.1.786890.3.579.2.5 93 1941 Unknown [id number] 2.16.840.1.293699.3.579.2.5 93 1941 Unknown [id number] 2.16.840.1.034794.3.579.2.5 93 1941 Unknown [id number] 2.16.840.1.533792.3.579.2.1 259 1941 Unknown [id number] 2.16.840.1.306491.3.579.2.1 259 1941 Unknown [id number] 2.16.840.1.701428.3.579.2.1 259 1941 Unknown [id number] 2.16.840.1.708342.3.579.2.1 259 1941 Unknown [id number] 2.16.840.1.920892.3.579.2.1 259 1941 Unknown [id number] 2.16.840.1.462165.3.579.2.1 259 1941 Unknown [id number] 2.16.840.1.279879.3.579.2.1 259 Private Health Insurance [id number] Unknown [id number] 2.16.840.1.120052.3.579.2.5 31 Unknown [id number] 2.16.840.1.878378.3.579.2.5 31 Unknown [id number] 2.16.840.1.775448.3.579.2.5 31 Unknown [id number] 2.16.840.1.053061.3.579.2.5 31 Unknown [id number] 2.16.840.1.007199.3.579.2.5 31 Unknown [id number] 2.16.840.1.285023.3.579.2.5 31 Unknown [id number] 2.16.840.1.029149.3.579.2.5 31 Social History Date Type Detail Facility Start: 07-31-2020 End: 02-12-2022 Tobacco smoking status NCIS Ex-smoker (finding) [facility] Start: 1940 Sex Assigned At Female [facility] Start: 01-20-2023 End: 06-22-2023 Sex Assigned At [facility] Start: 03-02-2018 End: 02-12-2022 Tobacco use and exposure Smokeless tobacco non-user [facility] Start: 09-21-2021 End: 02-12-2022 Exposure to SARS-CoV-2 (event) Not sure [facility] History of tobacco use Current smoker [facility] Start: 11-12-2021 End: 09-23-2022 Tobacco smoking status NHIS Never smoked tobacco (finding) [facility] Start: 01-20-2023 End: 06-22-2023 History of Social function [facility] Adult Depression Screening Assessment 4 [facility] Start: 11-26-2019 Gender identity Identifies as female gender (finding) [facility] Start: 11-26-2019 Sexual orientation Heterosexual (finding) [facility] Start: 03-28-2023 Alcohol intake Current drinker of alcohol (finding) [facility] How often to you hav e a drink containing alcohol? Never [facility] Start: 12-12-2022 Alcohol Comment caffeine: coffee 1-2 cups a day [facility] Start: 1940 Sex Assigned At Not on file [facility] Medical Equipment Procedure Code Equipment Code Equipment Origin al Text Equipment Identifier Dates USE DIRECTED BEFORE MEALS AND BEDTIME Start: 08-28-2018 End: 09-29-2021 Comment on above: USE DIRECTED BEFO RE MEALS AND BEDTIME Goals Date Patient Goal Desired Activity /State Functional Status Date Assessment Result Facility 11-25-2021 Functional status Patient is Pro gressing Toward Baseline [facility] Work Phone: 11-11-2021 Functional status Patient is Pro gressing Toward Baseline [facility] Work Phone: 11-04-2021 Functional status Patient at Baseline [facility] Work Phone: Mental Status Date Assessment Result Facility 11-25-2021 Cognitive function Cognitive Sta tus Patient at Baseline [facility] Work Phone: 11-11-2021 Cognitive function Cognitive Sta tus Patient Not at Baseline [facility] Work Phone: 11-04-2021 Cognitive function Cognitive Sta tus Patient at Baseline [facility] Work Phone: Clinical Notes 12-10-2020 to 06-23-2023 Patient Gloria William APRN.SILK SCREEN OPERATOR - 06/23/2023 3:00 PM EDTAddendum Note - Anu Hillman RN - 02/11/2023 2:59 PM ESTTelephone Encounter - Anu Hillman RN - 02/11/2023 2:57 PM EST Note Date & Type Note Facility 06-23-2023 Instructions Gloria Perez APRN.SILK SCREEN OPERATOR - 06/23/2023 3:54 PM EDT It was a pleasure to see you today. We addressed the following diagnoses: Parkinson's disease without dyskinesia, with fluctuating manifestations (hcc) My recommendations are as follows: 06/23/2023 Visit: Parkinson's disease: Change the timing of the Sinemet to that noted below. Please let me know if you change your mind about physical therapy and if the dispatcher automobile rental approves Depression and anxiety: Continue Venlafaxine (Effexor) [...] or you can send a message through ITN. You can also now schedule and select appointments through ITN. Gloria Perez APRN.SILK SCREEN OPERATOR From the Parkinson's Foundation: [email or web address] What [...] make phlegm worse. documented in this encounter [facility] 06-23-2023 History of Presen t illness Narrative [facility] - FOLLOW UP EVALUATION Honey Rabago DO [address] [place] [address] Dear Honey Rabago DO: I had the pleasure of seeing Ms. Barker for follow-up today. As you know she is a 82 year old right-handed female with a history of Parkinson's disease since 2013. She is seen with her son. Subjective Previous Plan-01/20/2023 Visit: Parkinson's disease: Continue current medication schedule but discuss with the dice maker if you can take the Sinemet on [...] lot online or on TV, $15/month on [employer] tickets (in past also) Palliative Concerns: Caregiver burden: In assisted living so now less stress on son and daughter in law Spiritual concerns: No Advanced directives on file: No Palliative services: No Therapy and Exercise: Last PT Date: August 2022 Last OT Date: ST Date: August 2022 Exercises Regularly: Yes She downloaded exercises off [employer]. ALLERGIES Allergen Reactions Hydrocodone-Acetami* Mental Status Change [...] 01/18/2023: Pt takes 2 tabs daily per [facility] med list MEDICATION, NON-DATABASE 750 mg two [...] mind about physical therapy and if the dispatcher automobile rental approves Depression and anxiety: Continue Venlafaxine (Effexor) [...] Mirtazapine 7.5mg 1 Level of service : 36748 (40-54 min). Time spent 53 min on the day of service, which included preparing to see the patient, [id number] patient care, completing clinical documentation, obtaining and/or reviewing separately obtained history, performing a medically appropriate examination, and counseling and educating the patient/family/caregiver. Gloria Perez APRN.ELDON documented in this encounter [facility] 06-23-2023 Note HNO ID: [id number] Author: GLORIA PEREZ APRN.CNP Service: ? Author Type: Nurse Practitioner Type: Progress Notes Filed: 06/23/2023 20:12 Note Text: [facility] - FOLLOW UP EVALUATION Honey Rabago DO [address] [place] [address] Dear Honey Rabago, DO: I had the pleasure of seeing Ms. Barker for follow-up today. As you know she is a 82 year old right-handed female with a history of Parkinson's disease since 2013. She is seen with her son. Subjective Previous Plan-01/20/2023 Visit: Parkinson's disease: Continue current medication schedule but discuss with the dice maker if you can take the Sinemet on [...] now less stre (more content not included)... [facility] 02-11-2023 Note HNO ID: [id number] Author: Nupur Main PA-C Service: ? Author Type: Physician Instructional Specialist Type: Progress Notes Filed: 02/11/2023 4:48 PM Note Text: Reviewed chart - OK to refill; e-scripted to pharmacy as requested... [facility] 02-11-2023 Miscellaneous Notes Addended by: ANU HILLMAN on: 02/11/2023 02:59 PM Modules accepted: Orders Order pended to preferred pharmacy Last OV 01/20/23 Next OV 06/23/23 [id number] [place] [address] - [address] [facility] [address] [facility] [phone] [id number] carbidopa-levodopa (SINEMET 25-100) 25-100 mg per tablet Patient son called in today in regards to medication and wanting to switch pharmacy, they were told the best way to do this would be to request a new prescription. They would like it sent to [facility] Thank you! documented in this encounter [facility] 01-20-2023 Instructions Gloria Perez APRN.SILK SCREEN OPERATOR - 01/20/2023 3:46 PM EST It was a pleasure to see you today. We addressed the following diagnoses: Parkinson's disease without dyskinesia, with fluctuating manifestations (primary encounter diagnosis) Depression with anxiety My recommendations are as follows: 01/20/2023 Visit: Parkinson's disease: Continue current medication schedule but discuss with the dice maker if you can take the Sinemet on [...] or you can send a message through ITN. You can also now schedule and select appointments through ITN. Gloria Perez APRN.ELDON documented in this encounter [facility] 01-20-2023 History of Presen t illness Narrative [facility] - FOLLOW UP EVALUATION Honey Rabago DO [address] [facility] [id number] Dear Honey Rabago DO: I had the [...] lot online or on TV, $15/month on [employer] tickets (in past also) Palliative Concerns: Caregiver [...] 01/18/2023: Pt takes 2 tabs daily per [employer] [facility] med list MEDICATION, NON-DATABASE 750 mg two [...] she is going to discuss with the dice maker, see if she can take her Parkinson's [...] current medication schedule but discuss with the dice maker if you can take the Sinemet on [...] Mirtazapine 7.5mg 1 Level of service : 11493 (40-54 min). Time spent 47 min on the day of service, which included preparing to see the patient, [id number] patient care, completing clinical documentation, obtaining and/or reviewing separately obtained history, performing a medically appropriate examination, counseling and educating the patient/family/caregiver, and ordering medications, tests, or procedures. Gloria Perez APRN.ELDON documented in this encounter [facility] 01-20-2023 Note HNO ID: [id number] Author: Gloria Perez APRN.CNP Service: ? Author Type: Nurse Practitioner Type: Progress Notes Filed: 01/24/2023 12:36 PM Note Text: [facility] - FOLLOW UP EVALUATION Honey Rabago DO [address] [place] [address] Dear Honey Rabago DO: I had the [...] Use vaginally one (more content not included)... [facility] 07-08-2022 Instructions Gloria Perez APRN.ELDON - 07/08/2022 [...] or you can send a message through ITN. You can also now schedule and select appointments through ITN. Gloria Perez APRN.ELDON documented in this encounter [facility] 07-08-2022 History of Presen t illness Narrative [facility] - FOLLOW UP EVALUATION Honey Rabago DO, DO [address] [place] [address] [facility] [id number] Dear Honey Rabago DO, DO: I had [...] likes the staff. The director and creative director have to chip into cook since the [employer] cook and this has been good from [...] lot online or on TV, $15/month on [employer] tickets (in past) Palliative Concerns: Caregiver burden: [...] hr capsule Take 75 mg by mouth. [employer] VIVIAN 2 SENSOR kit apply 1 SENSOR [...] or around: 01/07/23 Level of service : 27453 (40-54 min). Time spent 47 min on the day of service, which included preparing to see the patient, wbdw-hw-usyg patient care, completing clinical documentation, obtaining and/or reviewing separately obtained history, performing a medically appropriate examination, counseling and educating the patient/family/caregiver, and ordering medications, tests, or procedures. Gloria Perez APRN.SILK SCREEN OPERATOR documented in this encounter [facility] 04-13-2022 Miscellaneous Notes Order pended Last [...] patient. Belen Tim documented in this encounter [facility] 02-15-2022 Miscellaneous Notes I tried callingGina, the social service agency director in her primary care provider's office. I left a message requesting a call back. AYO Chicas documented in this encounter [facility] 12-15-2021 Evaluation note Encounter Date Diagnosis Assessment Notes Dec, Medication monitoring encounter (ICD-10 - Z51.81) Referring Provider: Honey Rabago Diagnosis: DVT INR Goal: 2-3 INR: 2.0 ( 103) Warfarin Tablet Size: 2mg Tuesday: 2mg Tuesday: 2mg Tuesday: 1mg Tuesday: 2mg : 1mg Tuesday: 2mg Tuesday: 2mg Total Weekly Dose: 12mg Continue current plan. Follow up in 3 weeks. Please call patient's son Jose David at [phone] with results. Spoke to Jose David and discussed above. Spoke with KORTNEY Albert ([phone] ) and given above instructions. Patient may get home testing for INRs set-up, will inform clinic if home testing begins. Home Health Order: Draw PT/INR on 01-04-22 Seen by Justin Nicolas PharmD [facility] Other 09-20-2022 Evaluation note* Encounter Date Diagnosis [...] on 11/25 from inpatient rehab at [facility] with above plan and therapeutic INRs. Follow up in 2 weeks. Please call patient's son Jose David at [phone] with results. Spoke to Jose David and discussed above. Spoke with RN Bety ([phone]) and given above instructions. Patient may get home testing for INRs set-up, will inform clinic if home testing begins. Home Health Order: Draw PT/INR on 12-14-21 Seen by Justin Nicolas PharmD [employer] [facility] Other 09-14-2022 Discharge summary Author Alcides Moya [facility] November 25, 2021 12:57pm Note Date/Time November 25, 2021 8:50am [facility] [address] [place] [address] Discharge Summary Signed Patient: Alton Barker MR#: [id number] : 1940 Acct:[id number] Age/Sex: 81 / F Adm Date: 2 Loc: Room: 3V8502-[address]: Alcides Moya MD Copies to: [...] Discharge Plan Patient Disposition: Home Health [facility] Activity: Ambulate as Tolerated Diet: [...] PT/INR (dx:Z79.01) on Tuesday11/30/21, with results to [facility], who will continue to manage your Coumadin dosing, as they were prior to your hospitalization. -Coumadin dosing: Take 2mg every day EXCEPT Tuesday and . Take 1mg on Tuesday and . Your Home Health agency is [facility] ( ). They [...] signed by Alcides Moya MD> 11/25/21 1257 [facility] Work Phone: 1(334) 572-876909-12-2022 Progress note Author Alcides Moya [facility] November 23, 2021 3:01pm Note Date/Time November 23, 2021 1:36pm [facility] [address] [place] [address] Physiatry(Rehab) Progress Note Signed Patient: Alton Barker MR#: [id number] : 1940 Acct:[id number] Age/Sex: 81 / F Adm Date: 2 Loc: Room: [address] [place] [address] Type: ADM IN Attending Dr: Alcides Moya MD Copies to: ~ <Elham Mendoza APRN - Last Filed: 11/23/21 14:05> Date of Service: 11/23/2021 Subjective <Elham Mendoza APRN - Last Filed: 11/23/21 14:05> Subjective Narrative: Ms. 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 I reminded that she can take her [...] mg 11/11/21 14:29 Bisacodyl 10 Mg Supp.Rect [place] 11/11/22 14:28 DAILY PRN Constipation Carbidopa/Levodopa 1.5 [...] 14:29 Docusate Enema 283 Mg/5 Ml Enema [place] 11/11/22 14:28 DAILY PRN Constipation Lactulose 30 [...] ONCE PRN zz.Pharmacy Note Protocol Assessment/Plan <Elham HEIDI Mendoza - Last Filed: 11/23/21 14:05> Assessment/Plan (1) [...] Allied health note review, nursing note review, credit consultant note review, discussion with nursing and case management, and more than 50% of my time was spent on counseling and coordination of care, time spent 18 minutes Patient was personally seen by me, Dr. Moya, on the day of encounter, reviewed the history and the relevant portions of the chart, including current orders, allied health and credit consultant notes, labs/imaging and performed day elements [...] <Electronically signed by Alcides Moya MD> 11/23/21 6352 [facility] Work Phone: 1(775) 946-178809-12-2022 Progress note Author Alcides Moya [facility] November 23, 2021 2:39pm Note Date/Time November 20, 2021 1:19pm [facility] [address] [place] [address] Physiatry(Rehab) Progress Note Signed Patient: Alton Barker MR#: [id number] : 1940 Acct:[id number] Age/Sex: 81 / F Adm Date: 2 Loc: Room: [address] [place] [address] Type: ADM IN Attending Dr: Alcides Moya MD Copies to: ~ <Elham Mendoza APRN - Last Filed: 11/20/21 13:21> Date of Service: 11/20/2021 Subjective <Elham Mendoza APRN - Last Filed: 11/20/21 13:21> Subjective Narrative: Ms. Barker is a 81 year old female With history of Parkinson's disease, followed at the [facility], admitted to the rehabilitation unit with [...] mg 11/11/21 14:29 Bisacodyl 10 Mg Supp.Rect [place] 11/11/22 14:28 DAILY PRN Constipation Carbidopa/Levodopa 1.5 [...] 14:29 Docusate Enema 283 Mg/5 Ml Enema [place] 11/11/22 14:28 DAILY PRN Constipation Lactulose 30 [...] 11/20/21 17:01 ONCE ONE Assessment/Plan <Elham Mendoza, FOUNDATION STAGE TEACHER - Last Filed: 11/20/21 13:21> Assessment/Plan (1) [...] Allied health note review, nursing note review, credit consultant note review, discussion with nursing and case management, and more than 50% of my time was spent on counseling and coordination of care, time spent 16 minutes Patient was personally seen by me, Dr. Moya, on the day of encounter, reviewed the history and the relevant portions of the chart, including current orders, allied health and credit consultant notes, labs/imaging and performed day elements of exam and I formulated the plan of care and facilitated the medical decision making and confirmed the nurse practitioner note, as above Documented By: Elham Mendoza APRN 11/20/21 1 310 Signed By: <Electronically signed by HEIDI Mendoza> 11/20/21 1321 <Electronically signed by Alcides Moya MD> 11/23/21 9789 [facility] Work Phone: 1(154) 475-457509-08-2022 Progress note Author Rosa Maria Odell [facility] November 19, 2021 5:37pm Note Date/Time November 19, 2021 4:57pm [facility] [address] [place] [address] Hospitalist Progress Note Signed Patient: Alton Barker MR#: [id number] : 1940 Acct:[id number] Age/Sex: 81 / F Adm Date: 2 Loc: Room: [address] [place] [address] Type: ADM IN Attending Dr: Alcides Moya [...] mg 11/11/21 14:29 Bisacodyl 10 Mg Supp.Rect [place] 11/11/22 14:28 DAILY PRN Constipation Carbidopa/Levodopa 1.5 [...] 14:29 Docusate Enema 283 Mg/5 Ml Enema [place] 11/11/22 14:28 DAILY PRN Constipation Lactulose 30 [...] Odell MD> 11/19/21 1737 [facility] Work Phone: 1(136) 911-750009-07-2022 Progress note Author Alcides Moya [facility] November 18, 2021 12:40pm Note Date/Time November 17, 2021 10:56am [facility] [address] [place] [address] Physiatry(Rehab) Progress Note Signed Patient: Alton Barker MR#: [id number] : 1940 Acct:[id number] Age/Sex: 81 / F Adm Date: 2 Loc: Room: [address] [place] [address] Type: ADM IN Attending Dr: Alcides Moya [...] Meds: Allergies bupropion [From Wellbutrin] Allergy (Verified 08/24/22 15:50) Hallucinating hydrocodone [From Vicodin] Allergy (Verified [...] mg 11/11/21 14:29 Bisacodyl 10 Mg Supp.Rect [place] 11/11/22 14:28 DAILY PRN Constipation Carbidopa/Levodopa 1.5 [...] 14:29 Docusate Enema 283 Mg/5 Ml Enema [place] 11/11/22 14:28 DAILY PRN Constipation Lactulose 30 [...] Allied health note review, nursing note review, credit consultant note review, discussion with nursing and case management, and more than 50% of my time was spent on counseling and coordination of care, time spent 23 minutes Patient was personally seen by me, Dr. Moya, on the day of encounter, reviewed the history and the relevant portions of the chart, including current orders, allied health and credit consultant notes, labs/imaging and performed day elements [...] Moya MD> 11/18/21 1240 [facility] Work Phone: 1(271) 522-222809-03-2022 Progress note Author Alcides Moya [facility] November 14, 2021 8:45am Note Date/Time November 13, 2021 3:25pm [facility] [address] [place] [address] Physiatry(Rehab) Progress Note Signed Patient: Alton Barker MR#: [id number] : 1940 Acct:[id number] Age/Sex: 81 / F Adm Date: 2 Loc: 5T Room: [address] [place] [address] Type: ADM IN Attending Dr: Alcides Moya MD Copies to: ~ Date of Service: 11/13/2021 Subjective Subjective Narrative: Ms. 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 Discharge planning:Insurance denial overturned via [id number]. 2 weeks approved. Plan for discharge home November 25 Plan: I completed a substantive portion of this encounter, the medical decision makingportion of this note in its entirety, including Allied health note review, nursing note review, credit consultant note review, discussion with nursing and case management, and more than 50% of my time was spent on counseling and coordination of care, time spent 26minutes Patient was personally seen by me, Dr. Moya, on the day of encounter, reviewed the history and the relevant portions of the chart, including current orders, allied health and credit consultant notes, labs/imaging and performed day elements of exam and I formulated the plan of care and facilitated the medical decision making and confirmed the nurse practitioner note, as above Documented By: Alcides Moya MD 11/13/21 1525 Signed By: <Electronically signed by Alcides Moya MD> 11/14/21 0845 [facility] Work Phone: 1(419) 619-369209-01-2022 Consult note Author Justice De Oliveira [facility] November 12, 2021 5:09pm Note Date/Time November 12, 2021 3:21pm [facility] [address] [place] [address] Hospitalist Consult Note Signed Patient: Alton Barker MR#: [id number] : 1940 Acct:[id number] Age/Sex: 81 / F Adm Date: 2 Loc: Room: 1H9977-9 Type: ADM IN Attending Dr: Alcides Moya [...] incontinence. Patient with underlying Parkinson's follows with [facility] neurology and movement disorder clinicians there. [...] mg-vit E 90 mg-zinc 40 mg-copper 1 rc-yhhxql-dmdxqw capsule (PreserVision AREDS-2) 1 tab PO BID [...] mg 11/11/21 14:29 Bisacodyl 10 Mg Supp.Rect [place] 11/11/22 14:28 DAILY PRN Constipation Carbidopa/Levodopa 1.5 [...] 14:29 Docusate Enema 283 Mg/5 Ml Enema [place] 11/11/22 14:28 DAILY PRN Constipation Lactulose 30 [...] 11/12/21 07:30 11/12/21 08:44 Omeprazole 20 Mg Capsule.Dr PO 11/12/22 07:29 [...] % (Auto) 45.9, Lymph % (Auto) 39.7, Dickenson % (Auto) 10.1, Eos % (Auto) 3.8, Baso % (Auto) 0.5, Neut # (Auto) 2.3, Lymph # (Auto) 2.0, Dickenson # (Auto) 0.5, Eos # (Auto) 0.2, [...] 2 1520 Signed By: <Electronically signed by ANP-CHEN Suh> 11/12/21 1543 <Electronically signed by Justice De Oliveira DO> 11/12/21 1709 [facility] Work Phone: 1(629) 798-524608-31-2022 History and physical note Author Alcides Moya [facility] November 11, 2021 6:55pm Note Date/Time November 11, 2021 1: 26pm [facility] [address] [place] [address] Physiatry (Rehab) H&P Signed Patient: Alton Barker MR#: [id number] : 1940 Acct:[id number] Age/Sex: 81 / F Adm Date: 2 Loc: Room: 5U1323-7 Type: ADM IN Attending Dr: Alcides Moya MD Copies to: MD Honey Pate DO~ Date of Service: 11/11/2021 HPI The patient was seen and examined on: 11/11/21 Etiologic Diagnosis/Impairment Group: 08.9 History of Present Illness: Ms. Mj is a 81 year old female With history of Parkinson's disease, followed at the [facility], admitted to the rehabilitation unit with [...] Lives at home with her son and nudjtpch-un-paj. 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 Discharge planning:Insurance denial overturned via [id number]. Plan for discharge home in 1 to 2 weeks. Plan: I completed a substantive portion of this encounter, the medical decision making portion of this note in its entirety, including Allied health note review, nursing note review, credit consultant note review, discussion with nursing and case management, and more than 50% of my time was spent on counseling and coordination of care, time spent 65 minutes Patient was personally seen by me, Dr. Moya, on the day of encounter, reviewed the history and the relevant portions of the chart, including current orders, allied health and credit consultant notes, labs/imaging and performed day elements of exam and I formulated the plan of care and facilitated the medical decision making and confirmed the nurse practitioner note, as above Documented By: Alcides Moya MD 11/11/211853 Signed By: <Electronically signed by Alcides Moya MD> 11/11/211854 [facility] Work Phone: 1(239) 883-240808-25-2022 Miscellaneous Notes* Telephone Encounter - Gloria Perez [...] is at [facility] in [place] - Room 3009 Bed. 2. * Telephone Encounter - Lyly Pedersen - 11/05/2021 1:04 PM EDT ----- Message from Gloria Perez APRN.CNP sent at 11/03/2021 8:01 AM EDT ----- [...] know. Thank you, Gloria [facility] History and physical note Author Enrrique Mota [facility] November 04, 2021 8:55pm Note Date/Time November 04, 2021 6: 26pm [facility] [address] [place] [address] Hospitalist H&P Signed Patient: Alton Barker MR#: [id number] : 1940 Acct:[id number] Age/Sex: 81 / F Adm Date: 2 Loc: Room: [address] [place] [address] Type: ADM IN Attending Dr: Enrrique Mota [...] mg-vit E 90 mg-zinc 40 mg-copper 1 xl-csstrz-fmmyjv capsule (PreserVision AREDS-2) 1 tab PO BID [...] % (Auto) 20.3 % (.) 11/04/21 16:40 Dickenson % (Auto) 9.7 % (.) 11/04/21 16:40 Eos % (Auto) 1.7 % (.) 11/04/21 16:40 Baso % (Auto) 0.6 % (.) 11/04/21 16:40 Neut # (Auto) 5.3 x10E3/uL (1.8-7.7) 11/04/21 16:40 Lymph # (Auto) 1.6 x10E3/uL (1.00-4.8) 11/04/21 16:40 Dickenson # (Auto) 0.8 x10E3/uL (0.0-0.8) 11/04/21 16:40 [...] <Electronically signed by Enrrique Mota MD> 11/04/212054 [facility] Work Phone: 1(643) 685-181708-11-2022 Evaluation note* Encounter Date Diagnosis Assessment Notes [...] 2 weeks. Seen by Justin Nicolas PharmD [facility] Other 07-21-2022 Instructions* Patient Instructions* Gloria Perez [...] or you can send a message through ITN. You can also now schedule and select appointments through ITN. Gloria Perez APRN.SILK SCREEN OPERATOR [facility] History of Present illness Narrative* Gloria Perez APRN.ELDON - 10/01/2021 12:13 PM EDT [facility] - FOLLOW UP EVALUATION Honey Rabago, DO, DO [address] [place] [address] I had the pleasure of seeing Ms. [...] loss is noticeable but LTM is good. [place] Cognitive Assessment (MoCA): 29 (02/03/2021 10:50 [...] is now living with her son and ynkazvei-sg-eje. She has not been taking her medication [...] 1.5 1.5 Effexor Level of service : 21100 (40-54 min). Time spent 49 (12:14pm-1:03pm) min on the day of service, which included preparing to see the patient, jafb-re-iypg patient care, completing clinical documentation, obtaining and/or reviewing separately obtained history, performing a medically appropriate examination, counseling and educating the patient/family/caregiver and ordering medications, tests, or procedures. Gloria Perez APRN.ELDON [facility] Evaluation note* Encounter Date Diagnosis Assessment [...] 3 weeks. Seen by Juliana Ozuna RN [facility] Other 06-28-2022 NoteHISTORY: Bone density screening. COMPARISON: [...] and signed by Delgado Moya on 09/08/2021 1400[facility] Evaluation note* Encounter [...] significant other. Seen by Juliana Ozuna RN [facility] Other 05-25-2022 Evaluation note* Encounter Date Diagnosis [...] INSTRUCTIONS: Please take as instructed above. Notify [place] [facility], Anticoagulation Clinic [phone] option 5 for the following: -Call immediately [...] person tells you to adjust your warfarin. [facility] Other 05-09-2022 Evaluation note* Encounter Date Diagnosis [...] significant other. Seen by Justin Nicolas PharmD [facility] Other 03-30-2022 Evaluation note* Encounter Date Diagnosis [...] Seen by Anu Alva RPh/Anuradha Case LPN [facility] Other 03-15-2022 Evaluation note* Encounter Date Diagnosis [...] she voiced understanding. Seen by Anu Alva RPh [facility] Other 01-12-2022 Evaluation note* Encounter Date Diagnosis [...] 3 weeks. Seen by Justin Nicolas PharmD [facility] Other 12-15-2021 Evaluation note* Encounter Date Diagnosis [...] 4 weeks. Seen by Juliana Ozuna RN [facility] Other 11-17-2021 Evaluation note* Encounter Date Diagnosis [...] 4 weeks. Seen by Juliana Ozuna RN [facility] Other 09-29-2021 Evaluation note* Encounter Date Diagnosis [...] 4 weeks. Seen by Justin Nicolas PharmD [facility] Other Consult note Author Jairo Benson [facility] November 05, 2021 3:10pm Note Date/Time November 05, 2021 3: 10pm [facility] [address] [place] [address] Psychiatry Consult Note Signed Patient: Alton Barker MR#: [id number] : 1940 Acct:[id number] Age/Sex: 81 / F Adm Date: 2 Loc: Room: [address] [place] [address] Type : ADM INOo Attending Dr: Enrrique [...] Medical History (Updated 11/05/21 @ 14:48 by Faustina Barr NP-C) Anxiety Diabetes DVT (deep venous thrombosis) Fibromyalgia [...] mg-vit E 90 mg-zinc 40 mg-copper 1 gj-vwzslc-kgypje capsule (PreserVision AREDS-2) 1 tab PO BID [...] Cloudy A Urine pH 5.5 Ur Specific [place] 1.029 Urine Protein 30 H Urine Glucose [...] signed by Jairo Benson MD> 11/05/21 1510 [facility] Work Phone: Consult note Author Oswaldo Almonte [facility] November 06, 2021 11:33am Note Date/Time November 06, 2021 11 :33am [facility] [address] [place] [address] Neurosurgery Consult Note Signed Patient: Alton Barker MR#: [id number] : 1940 Acct:[id number] Age/Sex: 81 / F Adm Date: 2 Loc: Room: [address] [place] [address] Type: ADM INOo Attending Dr: Enrrique Mota MD Copies to: MD Oswaldo Kearns MD Robert J Vaschak,~ HPI History of Present Illness Consult Date: [...] mg-vit E 90 mg-zinc 40 mg-copper 1 wj-cihcoh-xzixnt capsule (PreserVision AREDS-2) 1 tab PO BID [...] Cloudy A, Urine pH 5.5, Ur Specific [place] 1.029, Urine Protein 30 H, Urine Glucose [...] % (Auto) 67.7, Lymph % (Auto) 20.3, Dickenson % (Auto) 9.7, Eos % (Auto) 1.7, Baso % (Auto) 0.6, Neut # (Auto) 5.3, Lymph # (Auto) 1.6, Dickenson # (Auto) 0.8, Eos # (Auto) 0.1, [...] signed by MD Oswaldo Almonte> 11/06/21 1133 [facility] Work Phone: Discharge summary Author Gaye Claire [facility] November 11, 2021 5:21pm Note Date/Time November 10, 2021 11 :33am [facility] [address] [place] [address] Discharge Summary Signed Patient: Alton Barker MR#: [id number] : 1940 Acct:[id number] Age/Sex: 81 / F Adm Date: 2 Loc: Room: 1L1789-[address]: Gaye Claire MD Copies to: Tonya Suh, [facility]- MD Honey Collado,DO~ Providers Date [...] movement disorderspecialist Gloria Lal nurse practitioner at [facility] routinely. She was continued on her [...] 08:00 11/10/21 03:02 11/10/21 08:34 11/10/21 08:00 08/30/22 08:00 Narrative: Alert, in chair, no distress at rest RRR no abnormal heart tones dimin without wheeze or rhonchi, RA S/NT, NABS, round no edema BLE, calves nontender Discharge Plan Discharge Plan Patient Disposition: Rehab [facility] Activity: No Activity Restriction Diet: [...] signed by Gaye Claire MD> 11/11/21 1721 [facility] Work Phone: Evaluation noteNo assessment information available [facility]tr[facility] noteNo InformationNomosaic life care at [facility] [employer] Other Evaluation note* Diagnosis Recurrent episodes of unresponsiveness- Primary Parkinson's disease (HCC) Paralysis agitans Depression with anxiety Dysthymic disorder Fatigue, unspecified type Excessive daytime sleepiness [facility]* Diagnosis Onset Date Resolution Status [...] tract infection acut e [facility] Work Phone: Evaluation note* Diagnosis [...] tract infection acut e [facility] Work Phone: Evaluation note* Diagnosis Parkinson's disease (HCC) Paralysis agitans [facility] Diagnosis Parkinson's disease (HCC)- Primary Paralysis agitans Depression with anxiety Dysthymic disorder [facility]* Diagnosis Parkinson's disease without dyskinesia, with fluctuating manifestations- Primary Depression with anxiety Dysthymic disorder [facility] Diagnosis Parkinson's disease Paralysis agitans [facility] Diagnosis Depression with anxiety- Primary Dysthymic disorder Parkinson's disease without dyskinesia, with fluctuating manifestations (HCC) Sialorrhea Disturbance of salivary secretion documented in this encounter [facility] general Narrative - Reported* Type Description Date Medical History diabetes mellitus Medical History coronary artery disease Medical History Hypothyroidism Medical History Esophageal reflux Medical History depression Medical History essential tremor Surgical History tonsillectomy Surgical History cholecystectomy Surgical History appendectomy Surgical History hemorrhoidectomy Surgical History colonoscopy Surgical History heart catheterization Hospitalization History see above [facility] Other History [facility] - [facility] Other Progress note Author Enrrique Mota [facility] November 06, 2021 7:31am Note Date/Time November 05, 2021 3: 01pm [facility] [address] [place] [address] Hospitalist Progress Note Signed Patient: Alton Barker MR#: [id number] : 1940 Acct:[id number] Age/Sex: 81 / F Adm Date: 2 Loc: Room: [address] [place] [address] Type: ADM INOo Attending Dr: Enrrique Mota MD Copies to: ~ Date of Service: 11/05/2021 Subjective Subjective Narrative: Patient seen and examined, sitting up in chair at time of exam. She is pleasant, mildly confused. She is oriented to self, knows she is at [facility]. Initially states year is 1921, then [...] where she lives with her son and cwxvbulc-bh-ezt Impaired mobility and ADLs Parkinson's disease ? Patient follows with neurology, Dr. Lal, and movement disorder specialist,Gloria Lal CNP, at [facility] ? Continue Sinemet ? PT/OT eval's [...] Mota MD> 11/06/21 0731 [facility] Work Phone: Progress note Author Enrrique Mota [facility] November 07, 2021 4:52pm Note Date/Time November 06, 2021 11 :01am [facility] [address] [place] [address] Hospitalist Progress Note Signed Patient: Alton Barker MR#: [id number] : 1940 Acct:[id number] Age/Sex: 81 / F Adm Date: 2 Loc: Room: [address] [place] [address] Type: ADM INOo Attending Dr: Enrrique Mota MD Copies to: ~ Date of Service: 11/06/2021 Subjective Subjective Narrative: Patient is seen and examined. She is sitting up in bed at time of exam. When asked how she is feeling, she states not well, I am confused . She has howeveroriented to self, knows she is at [facility], and was able to tell me events surrounding her admission. She showed me a paper with prison facilities listed on it, and indicated that [...] where she lives with her son and iteraejw-xz-ysj Impaired mobility and ADLs Parkinson's disease ? Patient follows with neurology, Dr. Lal, and movement disorder specialist,Gloria Lal, ELDON, at [facility] ? Continue Sinemet ? PT/OT recommending [...] <Electronically signed by Enrrique Mota MD> 11/07/21 9827 [facility] Work Phone: Progress note Author Enrrique Mota [facility] November 07, 2021 4:47pm Note Date/Time November 07, 2021 11 :18am [facility] [address] [place] [address] Hospitalist Progress Note Signed Patient: Alton Barker MR#: [id number] : 1940 Acct:[id number] Age/Sex: 81 / F Adm Date: 2 Loc: Room: [address] [place] [address] Type: ADM INOo Attending Dr: Enrrique Mota [...] where she lives with her son and ryqxazoy-eu-fro Impaired mobility and ADLs Parkinson's disease ? Patient follows with neurology, Dr. Lal, and movement disorder specialist,Gloria Lal, SILK SCREEN OPERATOR, at [facility] ? Continue Sinemet ? PT/OT recommending [...] <Electronically signed by Enrrique Mota MD> 11/07/21 3115 [facility] Work Phone: Progress note Author Enrrique Mota [facility] November 08, 2021 5:13pm Note Date/Time November 08, 2021 10 :47am [facility] [address] [place] [address] Hospitalist Progress Note Signed Patient: Alton Barker MR#: [id number] : 1940 Acct:[id number] Age/Sex: 81 / F Adm Date: 2 Loc: 3T Room: [address] [place] [address] Type: ADM INOo Attending Dr: Enrrique Mota [...] where she lives with her son and dzbgkdem-vb-sfl Impaired mobility and ADLs Parkinson's disease ? Patient follows with neurology, Dr. Lal, and movement disorder specialist,Gloria Lal, ELDON, at [facility] ? Continue Sinemet ? PT/OT recommending [...] signed by Enrrique Mota MD> 11/08/21 1713 [facility] Work Phone: Progress note Author Gaye Claire [facility] November 10, 2021 4:37pm Note Date/Time November 09, 2021 1: 11pm [facility] [address] [place] [address] Hospitalist Progress Note Signed Patient: Alton Barker MR#: [id number] : 1940 Acct:[id number] Age/Sex: 81 / F Adm Date: 2 Loc: Room: [address] [place] [address] Type: ADM INOo Attending Dr: Gaye Claire [...] Lal, and movement disorder specialist, Gloria Lal SILK SCREEN OPERATOR at [facility] ?Continue Sinemet UTI Ecoli ?ceftriaxone initiated [...] 2 1311 Signed By: <Electronically signed by ANP-CHEN Suh> 11/09/21 1551 <Electronically signed by Gaye Claire MD> 11/10/21 1637 [facility] Work Phone: Progress note Author Gaye Claire [facility] November 11, 2021 5:21pm Note Date/Time November 10, 2021 5: 36pm [facility] [address] [place] [address] Hospitalist Progress Note Signed Patient: Alton Barker MR#: [id number] : 1940 Acct:[id number] Age/Sex: 81 / F Adm Date: 2 Loc: Room: 5U6998-2 Type: DIS INOo Attending Dr: Gaye Claire [...] movement disorder specialist, Gloria Lal CNP at [facility] ?Continue Sinemet UTI Ecoli ?ceftriaxone initiated 11/06, change to Cefdinir at [place] for 7 day total course last dose [...] signed by Gaye Claire MD> 11/11/21 1721 [facility] Work Phone: Reason for referral (narrative)* Outpatient Procedure (Routine) - Pending Review Specialty Diagnoses / Procedures Referred By Contact [facility]erred To [facility] Diagnoses Recurrent episodes of unresponsiveness Procedures EPIL EEG ROUTINE ELECTROENCEPHALOGRAM REC COMA/SLEEP ONLY Gloria Perez APRN.CNP [address] [place] [address] [facility] [address] [place] [address] Referral ID Status Reason Start Date Expiration Date Visits Requested Visits Authorized [id number] Pending Review Auto-Generat ed Referral 10/04/2021 10/04/2022 1 1 [facility] Summary Purpose Family History No Family [...] (HCC) Procedures PROVIDER ORDERED FOLLOW UP OFFICE/OUTPATIENT [facility] MDM 60-74 MINUTES Gloria Perez, FOUNDATION STAGE TEACHER.SILK SCREEN OPERATOR [id number] [id number] Referral ID Status Reason Start Date Expiration Date Visits Requested Visits Authorized [id number] Pending Review PCP Requested Referral 3 07/08/2023 1 1 Additional Source Comments INFORMATION SOURCE (unrecogn ized section and content) DATE CREATED AUTHOR 11/02/2017 [employer] DATE CREATED AUTHOR AUTHOR'S ORGANIZ ATION 09/09/2021 [facility] DATE CREATED AUTHOR AUTHOR'S ORGANIZ ATION 06/01/2022 [facility] DATE CREATED AUTHOR AUTHOR'S ORGANIZ ATION 07/23/2022 [facility] DATE CREATED AUTHOR AUTHOR'S ORGANIZ ATION 08/20/2023 [facility] EPIC DATE CREATED AUTHOR AUTHOR'S ORGANIZ ATION 10/27/2023 [facility] Goals (unrecognized section and content) Goals may [...] Specialty Diagnoses / Procedures Referred By Daija madrid Referred To Contact Diagnoses Parkinson's disease Procedures PROVIDER ORDERED FOLLOW UP OFFICE/OUTPATIENT [facility] 60-74 MINUTES Gloria Perez, FOUNDATION STAGE TEACHER.SILK SCREEN OPERATOR [address] [address] Referral ID Status Reason Start Date Expiration Date Visits Requested Visits Authorized [id number] Pending Review PCP Requested Referral 3 07/08/2023 [...] or prosecute any alcohol or drug abuse patient.[facility] the event this information is protected by the Federal Confidentiality of Alcohol and Drug Abuse Patient Records regulations: The Federal rules restrict any use of the information to criminally investigate or prosecute any alcohol or drug abuse patient.[facility] the event this information is protected by the Federal Confidentiality of Alcohol and Drug Abuse Patient Records regulations: The Federal rules restrict any use of the information to criminally investigate or prosecute any alcohol or drug abuse patient.[facility] the event this information is protected by the Federal Confidentiality of Alcohol and Drug Abuse Patient Records regulations: The Federal rules restrict any use of the information to criminally investigate or prosecute any alcohol or drug abuse patient.[facility] the event this information is protected by the Federal Confidentiality of Alcohol and Drug Abuse Patient Records regulations: The Federal rules restrict any use of the information to criminally investigate or prosecute any alcohol or drug abuse patient.[facility] the event this information is protected by the Federal Confidentiality of Alcohol and Drug Abuse Patient Records regulations: The Federal rules restrict any use of the information to criminally investigate or prosecute any alcohol or drug abuse patient.[facility] the event this information is protected by the Federal Confidentiality of Alcohol and Drug Abuse Patient Records regulations: The Federal rules restrict any use of the information to criminally investigate or prosecute any alcohol or drug abuse patient.[facility] the event this information is protected by the Federal Confidentiality of Alcohol and Drug Abuse Patient Records regulations: The Federal rules restrict any use of the information to criminally investigate or prosecute any alcohol or drug abuse patient.[facility] the event this information is protected by the Federal Confidentiality of Alcohol and Drug Abuse Patient Records regulations: The Federal rules restrict any use of the information to criminally investigate or prosecute any alcohol or drug abuse patient.[facility] the event this information is protected by the Federal Confidentiality of Alcohol and Drug Abuse Patient Records regulations: The Federal rules restrict any use of the information to criminally investigate or prosecute any alcohol or drug abuse patient.[facility] Care Teams (unrecognized sec tion and [...] KORTNEY Other Provider Active Sasha Hannah , RN Other Provider Active Nadia Dutton , RN Other Provider Active Anuradha Garrett , RN Other Provider Active Karen Smtih , KORTNEY Other Provider Active Erika Ayon [...] MD Other Provider Active Faustina Barr , WEATHERSTRIP MACHINE OPERATOR-C Other Provider Active Valente Lauren MD Other Provider Active Kareem Elizondo MD Other Provider Active Italia Colbert MD Other Provider Active Ronan Davidson MD Other Provider Active Shantel Nayak , DO Other Provider Active Kaylie Mooney MD Other Provider Active Michael Del Rio , DO Other Provider Active Sony Canela , DO Other Provider Active Amanda Jaimes FOUNDATION STAGE TEACHER Other Provider Active Lázaro Pratt , DO Other Provider Active Corona Weathers MD Other Provider Active Lee Ann Terry RN Other Provider Active Team Status: Inactive Member Role Status Dates Honey Rabago , Primary Care Provider Active Marvin Peter , DO Emergency Provider Active Enrrique Mota MD Admit Provider Active Jairo Benson MD Other Provider Active Oswaldo Almonte MD Other Provider Active aGye Claire MD Attending Provider Active Despatch Clerk Relationship Specialty Start Date End Date Hima Honey Mcgrath, DO [address] [place] [address] PCP - General 02/16/05 Despatch Clerk Relationship Specialty Start Date End Date Hima Honey Mcgrath, DO [address] [place] [address] PCP - General 02/16/05 Despatch Clerk Relationship Specialty Start Date End Date Honey Rabago, DO [address] [place] [address] PCP - General 02/16/05 Team Status: Active [...] Active Misha Ziegler MD Other Provider Active Cherycami Coronado , FOUNDATION STAGE TEACHER Other Provider Active José Miguel Tellez , [...] MD Other Provider Active Faustina Barr , WEATHERSTRIP MACHINE OPERATOR-C Other Provider Active Valente Lauren MD Other Provider Active Kareem Elizondo MD Other Provider Active Italia Colbert MD Other Provider Active Ronan Davidson MD Other Provider Active Shantel Nayak , DO Other Provider Active Kaylie Mooney MD Other Provider Active Michael Del Rio , DO Other Provider Active Sony Canela , DO Other Provider Active Amanda Obalessia , FOUNDATION STAGE TEACHER Other Provider Active Lázaro Pratt , DO Other Provider Active Corona Weathers MD Other Provider Active Lee Ann Terry , KORTNEY Other Provider Active Team Status: Inactive Member Role Status Dates Honey Rabago , DO Primary Care Provider Active Sumanth Lowe , DO Emergency Provider Active Team Status: Inactive Member Role Status Dates Holger Dorado , DO Emergency Provider Active Honey Rabago DO Primary Care Provider Active Team Status: Active Member Role Status Dates Honey Rabago DO Primary Care Provider, Attending Paula mock Active Despatch Clerk Relationship Specialty Start Date End Date Honey Rabago DO [address] [place] [address] PCP - General 02/16/05 Despatch Clerk Relationship Specialty Start Date End Date Honey Rabago, DO [address] [place] [address] PCP - General 02/16/05 Despatch Clerk Relationship Specialty Start Date End Date Honey Rabago DO [address] [place] [address] PCP - General 02/16/05 Despatch Clerk Relationship Specialty Start Date End Date Honey Rabago DO [address] [place] [address] PCP - General 02/16/05 Despatch Clerk Relationship Specialty Start Date End Date Honey Rabago DO [address] [place] [address] PCP - General 02/16/05 Despatch Clerk Relationship Specialty Start Date End Date Honey Rabago DO [address] [place] [address] PCP - General 02/16/05 Despatch Clerk Relationship Specialty Start Date End Date Honey Rabago DO PCP - General Internal Medicine 07/28/22 Despatch Clerk Relationship Specialty Start Date End Date Honey Rabago DO [address] [place] [address] PCP - General 02/16/05 FOR RECORDS PERTAINING [...] BE BASED ON THE PRIMARY CLINICAL RECORDS. [employer] [facility]. provides no warranty or guarantee of the accuracy or completeness of information in this document.
[2023-10-30 21:51] LABS: Glucometer 348 mg/dL (74-106)
--- NOTE | 2023-10-30 21:53 | XR_ITS ---
The [address] [address] Patient Name: ALTON SALMERON MRN: [id number] date: 1940 Sex: F Assigned Patient Location: ER Current Patient Location: ER Accession/Order Number: [id number] Exam Date: 10/30/2023 21:18 Report Date: 10/30/2023 23:51 At the request of: BRUCE BOND Procedure: XR chest 1V EXAM: XR chest 1V HISTORY: Mild cough, hyperglycemia COMPARISON: None. TECHNIQUE: One view of the chest was obtained. FINDINGS: The cardiac silhouette is mildly enlarged. Aortic atherosclerotic disease is seen. There is no significant pneumothorax or left pleural effusion. There is a possible small right pleural effusion. There are mild bibasilar opacities. No acute osseous abnormality is seen. XR/XR chest 1V IMPRESSION: 1. Mildly enlarged cardiac silhouette with a possible small right pleural effusion and suspected bibasilar atelectasis. Electronically authenticated by: Cari RODRIGUEZ Date: 10/30/2023 23:51
--- NOTE | 2023-10-30 21:53 | ECG_ITS ---
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
--- NOTE | 2023-10-30 21:55 | ED.GENADUL1 ---
HPI HPI - General Adult General Chief complaint: Recheck/Abnormal Lab/Rx Stated complaint: ABNORMAL LABS Time Seen by Provider: 10/30/23 21:46 Source: patient Mode of arrival: ambulance History of Present Illness HPI narrative: 83-year-old female presented for elevated blood sugar. It was reportedly 392. She has been diabetic for a number of years and takes oral hypoglycemic, metformin. Her sugar has been going up for the past few days. She has had a slight cough but otherwise has felt well. No vomiting or dysuria. She has not had a fever. Related Data Home Medications ?Medication ?Instructions ?Recorded ?Confirmed acetaminophen 500 mg tablet 1,000 mg PO DAILY 10/25/23 10/30/23 atorvastatin 40 mg tablet 40 mg PO DAILY 10/25/23 10/30/23 carbidopa 25 mg-levodopa 100 mg 1 tab PO DAILY 10/25/23 10/30/23 tablet levothyroxine 75 mcg tablet 75 mcg PO DAILY 10/25/23 10/30/23 metformin 500 mg tablet 500 mg PO Q12H 10/25/23 10/30/23 metoprolol tartrate 50 mg tablet 75 mg PO Q12H 10/25/23 10/30/23 mirtazapine 7.5 mg tablet 7.5 mg PO DAILY 10/25/23 10/30/23 omeprazole 20 mg capsule,delayed 20 mg PO DAILY 10/25/23 10/30/23 release venlafaxine 150 mg 150 mg PO DAILY 10/25/23 10/30/23 capsule,extended release 24 hr venlafaxine 75 mg tablet 75 mg PO DAILY 10/25/23 10/30/23 warfarin 2 mg tablet 2 mg PO .complex 10/25/23 10/30/23 estradiol 0.01% (0.1 mg/gram) 1 appful vaginal .weekly 10/30/23 10/30/23 vaginal cream sitagliptin phosphate 50 mg tablet 50 mg PO DAILY 10/30/23 10/30/23 (Alfredo) Previous Rx's ?Medication ?Instructions ?Recorded cephalexin 500 mg capsule 500 mg PO TID 7 days #21 caps 10/31/23 Allergies Allergy/AdvReac Type Severity Reaction Status Date / Time atorvastatin AdvReac Severe Unknown Verified 10/30/23 21:43 hydrocodone [From Vicodin] AdvReac Severe Confusion Verified 10/25/23 16:13 latex AdvReac Severe Rash Verified 10/25/23 16:13 Opioid HPI Opioid Management Most Recent Opioid Data: No Data to Display Review of Systems ROS Narrative A ten point review of systems is negative except as noted above. 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 - Benign neoplasm of cerebral meninges (ICD-10) Dermatophytosis ?B35.9 - Dermatophytosis, unspecified (ICD-10) Urgency of urination ?R39.15 - Urgency of urination (ICD-10) Unsteadiness on feet ?R26.81 - Unsteadiness on feet (ICD-10) Vaginitis ?N76.0 - Acute vaginitis (ICD-10) Occipital neuralgia ?M54.81 - Occipital neuralgia (ICD-10) Collapsed vertebra ?M48.50XA - Collapsed vertebra, not elsewhere classified, site unspecified, initial encounter for fracture (ICD-10) Osteoarthritis ?M19.90 - Unspecified osteoarthritis, unspecified site (ICD-10) Seborrheic dermatitis ?L21.9 - Seborrheic dermatitis, unspecified (ICD-10) Gastro-esophageal reflux ?K21.9 - Gastro-esophageal reflux disease without esophagitis (ICD-10) Venous insufficiency ?I87.2 - Venous insufficiency (chronic) (peripheral) (ICD-10) Deep vein phlebitis and thrombophlebitis of lower extremity ?I80.209 - Phlebitis and thrombophlebitis of unspecified deep vessels of unspecified lower extremity (ICD-10) Peripheral vascular disease ?I73.9 - Peripheral vascular disease, unspecified (ICD-10) Atherosclerotic heart disease ?I25.10 - Atherosclerotic heart disease of [place] coronary artery without angina pectoris (ICD-10) Macular degeneration ?H35.30 - Unspecified macular degeneration (ICD-10) Sleep apnea ?G47.30 - Sleep apnea, unspecified (ICD-10) Parkinson disease ?G20.A1 - Parkinson's disease without dyskinesia, without mention of fluctuations (ICD-10) Hyperlipidemia ?E78.5 - Hyperlipidemia, unspecified (ICD-10) Obesity ?E66.9 - Obesity, unspecified (ICD-10) Diabetes mellitus ?E11.9 - Type 2 diabetes mellitus without complications (ICD-10) Exam Narrative Exam Narrative: Nurses note and vital signs reviewed and patient is not hypoxic. General: The patient appears in no apparent distress. Patient is resting comfortably on cart. Skin: Warm, dry, no pallor noted. There is no rash noted. Head: Normocephalic, atraumatic Eye: Normal conjunctiva, no drainage Ears, Nose, Mouth, and Throat: oral mucosa is moist. Nares patent. Cardiovascular: Regular Rate and Rhythm Respiratory: Patient is in no distress, no accessory muscle use, lungs are clear to auscultation, no wheezing, rales or rhonchi Back: non-tender GI: Soft and Musculoskeletal: The patient has no evidence of calf tenderness, symmetrical pulses noted bilaterally Neurological: Awake and alert and oriented Psychiatric: Cooperative Constitutional Vital Signs, click to edit/add: Last Vital Signs Temp 98.6 F 10/30/23 21:41 Pulse 79 10/30/23 22:50 Resp 18 10/30/23 22:50 BP 159/73 H 10/30/23 22:30 Pulse Ox 100 10/30/23 22:50 O2 Del Method Room Air 10/30/23 21:41 Course Vital Signs Vital signs: Vital Signs Temperature 98.6 F 10/30/23 21:41 Pulse Rate 84 10/30/23 21:41 Respiratory Rate 18 10/30/23 21:41 Blood Pressure 152/69 H 10/30/23 21:41 Pulse Oximetry 98 10/30/23 21:41 Oxygen Delivery Method Room Air 10/30/23 21:41 Temperature 98.6 F 10/30/23 21:41 Pulse Rate 79 10/30/23 22:50 Respiratory Rate 18 10/30/23 22:50 Blood Pressure 159/73 H 10/30/23 22:30 Pulse Oximetry 100 10/30/23 22:50 Oxygen Delivery Method Room Air 10/30/23 21:41 Medical Decision Making MDM Narrative Medical decision making narrative: The patient presented with elevated blood sugar. She was found to have a UTI and was given IV Rocephin and prescribed Keflex. Blood sugar was 278 here on her chemistries. She did not require any further intervention other than some IV fluids. Treatment diagnosis and disposition were discussed with the patient and she does not require admission to the hospital at this point. Differential Diagnosis Differential Diagnosis: UTI, pneumonia, medication noncompliance Lab Data Lab results reviewed: Yes I reviewed the patient's lab results Labs: Lab Results 10/30/23 10/30/23 10/30/23 Range/Units 21:46 21:50 22:10 WBC 7.3 (4.0-11.0) 10^3/uL RBC 4.13 L (4.20-5.40) 10^6/uL Hgb 12.3 (12.0-16.0) g/dL Hct 39.9 (36.0-48.0) % MCV 96.6 (81.0-99.0) fL MCH 29.8 (26.7-34.0) pg MCHC 30.8 (29.9-35.2) g/dL RDW 15.7 H (11.0-15.0) % Plt Count 176 (150-450) 10^3/uL MPV 11.1 (9.5-13.5) fL Neut % (Auto) 57.0 (43.0-75.0) % Lymph % (Auto) 31.2 (20.5-60.0) % [place] % (Auto) 8.6 (1.7-12.0) % Eos % (Auto) 2.5 (0.9-7.0) % Baso % (Auto) 0.4 (0.2-2.0) % Neut # (Auto) 4.2 (1.4-6.5) 10^3/uL Lymph # (Auto) 2.3 (1.2-3.8) 10^3/uL [place] # (Auto) 0.6 (0.3-0.8) 10^3/uL Eos # (Auto) 0.2 (0.0-0.7) 10^3/uL Baso # (Auto) 0.0 (0.0-0.1) 10^3/uL Abs Immat Gran (auto) 0.02 (0.00-0.03) 10^3/uL Imm/Tot Granulo (auto) 0.3 (0.0-0.5) % Sodium 135 L (136-145) mmol/L Potassium 4.2 (3.5-5.1) mmol/L Chloride 99 (98-107) mmol/L Carbon Dioxide 32.7 H (21.0-32.0) mmol/L Anion Gap 7.5 BUN 17.0 (7.0-18.0) mg/dL Creatinine 0.93 (0.55-1.02) mg/dL Est GFR ( Amer) >60 (>=60) Est GFR (Non-Af Amer) 58 L (>=60) BUN/Creatinine Ratio 18.3 Glucose 278 H (74-106) mg/dL Calcium 8.8 (8.5-10.1) mg/dL Urine Color (YELLOW) Urine Clarity (CLEAR) Urine pH (5.0-9.0) Ur Specific [place] (1.005-1.025) Urine Protein (NEG/TRACE) mg/dL Urine Glucose (UA) (NEGATIVE) mg/dL Urine Ketones (NEGATIVE) mg/dL Urine Occult Blood (NEGATIVE) Urine Nitrite (NEGATIVE) Urine Bilirubin (NEGATIVE) Urine Urobilinogen (0.2-1.0) EU/dL Ur Leukocyte Esterase (NEGATIVE) Urine RBC (0-2) #/HPF Urine WBC (NONE SEEN) #/HPF Ur Squamous Epith Cells (NONE/RARE) #/LPF Urine Crystals (None Seen) #/HPF Urine Bacteria (NONE SEEN) #/HPF Urine Casts (NONE SEEN) #/LPF Urine Mucus (NONE SEEN) Ur Culture Indicated? POC Glucose 348 H (74-106) mg/dL 10/30/23 Range/Units 23:29 WBC (4.0-11.0) 10^3/uL RBC (4.20-5.40) 10^6/uL Hgb (12.0-16.0) g/dL Hct (36.0-48.0) % MCV (81.0-99.0) fL MCH (26.7-34.0) pg MCHC (29.9-35.2) g/dL RDW (11.0-15.0) % Plt Count (150-450) 10^3/uL MPV (9.5-13.5) fL Neut % (Auto) (43.0-75.0) % Lymph % (Auto) (20.5-60.0) % [place] % (Auto) (1.7-12.0) % Eos % (Auto) (0.9-7.0) % Baso % (Auto) (0.2-2.0) % Neut # (Auto) (1.4-6.5) 10^3/uL Lymph # (Auto) (1.2-3.8) 10^3/uL [place] # (Auto) (0.3-0.8) 10^3/uL Eos # (Auto) (0.0-0.7) 10^3/uL Baso # (Auto) (0.0-0.1) 10^3/uL Abs Immat Gran (auto) (0.00-0.03) 10^3/uL Imm/Tot Granulo (auto) (0.0-0.5) % Sodium (136-145) mmol/L Potassium (3.5-5.1) mmol/L Chloride (98-107) mmol/L Carbon Dioxide (21.0-32.0) mmol/L Anion Gap BUN (7.0-18.0) mg/dL Creatinine (0.55-1.02) mg/dL Est GFR ( Amer) (>=60) Est GFR (Non-Af Amer) (>=60) BUN/Creatinine Ratio Glucose (74-106) mg/dL Calcium (8.5-10.1) mg/dL Urine Color Lt. yellow (YELLOW) Urine Clarity Clear (CLEAR) Urine pH 6.0 (5.0-9.0) Ur Specific [place] >=1.030 A (1.005-1.025) Urine Protein Negative (NEG/TRACE) mg/dL Urine Glucose (UA) 500 A (NEGATIVE) mg/dL Urine Ketones Negative (NEGATIVE) mg/dL Urine Occult Blood Negative (NEGATIVE) Urine Nitrite Positive A (NEGATIVE) Urine Bilirubin Negative (NEGATIVE) Urine Urobilinogen 0.2 (0.2-1.0) EU/dL Ur Leukocyte Esterase Trace A (NEGATIVE) Urine RBC None seen (0-2) #/HPF Urine WBC 75-100 A (NONE SEEN) #/HPF Ur Squamous Epith Cells Moderate A (NONE/RARE) #/LPF Urine Crystals None seen (None Seen) #/HPF Urine Bacteria Large A (NONE SEEN) #/HPF Urine Casts None seen (NONE SEEN) #/LPF Urine Mucus None seen (NONE SEEN) Ur Culture Indicated? Yes POC Glucose (74-106) mg/dL Imaging Data Chest x-ray: Radiologist's impression: ITS Impressions Chest X-Ray 10/30/23 21:53 IMPRESSION: 1. Mildly enlarged cardiac silhouette with a possible small right pleural effusion and suspected bibasilar atelectasis. Electronically authenticated by: Cari RODRIGUEZ Date: 10/30/2023 23:51 ECG Data Attestation: I personally reviewed and interpreted this ECG as follows: (EKG on my interpretation shows normal sinus rhythm with a rate of 81 and no acute change.) Discharge Plan Discharge Stand Alone Forms: Portal Instructions Chief Complaint: Recheck/Abnormal Lab/Rx Clinical Impression: Urinary tract infection, Acute hyperglycemia Patient Disposition: Home, Self-Care Time of Disposition Decision: 00:08 Condition: Good Mode of Transportation: Private Vehicle Prescriptions / Home Meds: New cephalexin 500 mg capsule 500 mg PO TID 7 Days Qty: 21 0RF No Action acetaminophen 500 mg tablet 1,000 mg PO DAILY atorvastatin 40 mg tablet 40 mg PO DAILY carbidopa-levodopa 25-100 mg tablet 1 tab PO DAILY levothyroxine 75 mcg tablet 75 mcg PO DAILY metformin 500 mg tablet 500 mg PO Q12H metoprolol tartrate 50 mg tablet 75 mg PO Q12H mirtazapine 7.5 mg tablet 7.5 mg PO DAILY omeprazole 20 mg capsule,delayed release(DR/EC) 20 mg PO DAILY venlafaxine 150 mg capsule,extended release 24hr 150 mg PO DAILY venlafaxine 75 mg tablet 75 mg PO DAILY warfarin 2 mg tablet 2 mg PO .complex Rx Instructions: 4mg tablet once a day , 2mg tablet once a day sun.mon.wed,tue,sat estradiol 0.01 % (0.1 mg/gram) cream 1 appful VAGINAL .weekly Januvia 50 mg tablet 50 mg PO DAILY Print Language: South Sudanese Instructions: Urinary Tract Infection in Older Adults (ED) Referrals: HONEY QUINONEZ [Primary Care Provider] - 1 week
[2023-10-30 22:00] LABS: Basophils Percent Auto 0.4 % (0.2-2.0); Eosinophils Absolute Auto 0.2 10^3/uL (0.0-0.7); Eosinophils Percent Auto 2.5 % (0.9-7.0); Hematocrit 39.9 % (36.0-48.0); Hemoglobin 12.3 g/dL (12.0-16.0); Immature Granulocytes Abs Auto 0.02 10^3/uL (0.00-0.03); Immature Granulocytes Pct Auto 0.3 % (0.0-0.5); Lymphocytes Absolute Auto 2.3 10^3/uL (1.2-3.8); Lymphocytes Percent Auto 31.2 % (20.5-60.0); Mean Corpuscular HGB Conc 30.8 g/dL (29.9-35.2); Mean Corpuscular Hemoglobin 29.8 pg (26.7-34.0); Mean Corpuscular Volume 96.6 fL (81.0-99.0); Mean Platelet Volume 11.1 fL (9.5-13.5); Monocytes Absolute Auto 0.6 10^3/uL (0.3-0.8); Monocytes Percent Auto 8.6 % (1.7-12.0); Neutrophils Absolute Auto 4.2 10^3/uL (1.4-6.5); Platelet Count 176 10^3/uL (150-450); Red Blood Count 4.13 10^6/uL (4.20-5.40); Red Cell Distribution Width 15.7 % (11.0-15.0); White Blood Count 7.3 10^3/uL (4.0-11.0)
[2023-10-30] MEDS: 0.9 % SODIUM CHLORIDE 1,000 ML 100 ML IV (22:19)
[2023-10-30 22:34] LABS: Anion Gap 7.5; BUN Creatinine Ratio 18.3; Calcium 8.8 mg/dL (8.5-10.1); Carbon Dioxide 32.7 mmol/L (21.0-32.0); Chloride 99 mmol/L (98-107); Estimated GFR (African America >60 (>=60); Estimated GFR (Non-African Ame 58 (>=60); Glucose 278 mg/dL (74-106); Potassium 4.2 mmol/L (3.5-5.1); Sodium 135 mmol/L (136-145)
[2023-10-30 23:36] LABS: Bilirubin Urine NEGATIVE (NEGATIVE); Blood Urine NEGATIVE (NEGATIVE); Clarity Urine CLEAR (CLEAR); Color Urine LT. YELLOW (YELLOW); Glucose Urine UA 500 mg/dL (NEGATIVE); Ketones Urine NEGATIVE (NEGATIVE); Leukocyte Esterase Urine TRACE (NEGATIVE); Nitrite Urine POSITIVE (NEGATIVE); Protein Urine NEGATIVE (NEG/TRACE); Specific Gravity Urine >=1.030 (1.005-1.025); Urobilinogen Urine 0.2 EU/dL (0.2-1.0)
[2023-10-30 23:43] LABS: Bacteria Urine LARGE #/HPF (NONE SEEN); Cast Seen? NONE SEEN #/LPF (NONE SEEN); Crystals Seen? None Seen #/HPF (None Seen); Mucus Urine NONE SEEN (NONE SEEN); RBC Urine NONE SEEN #/HPF (0-2); Squamous Epithelial Cell Urine MODERATE #/LPF (NONE/RARE); Urine Culture Indicated YES; WBC Urine 75-100 #/HPF (NONE SEEN)
[2023-10-31] VITALS: BP 152/66; O2SAT 98
[2023-10-31] MEDS: CEFTRIAXONE 1,000 MG in 0.9 % SODIUM CHLORIDE 50 ML 100 MG IV (00:07)
[2023-10-31 00:10] VITALS: O2SAT 98
[2023-10-31 00:20] VITALS: O2SAT 98
[2023-10-31 00:30] VITALS: BP 130/62; O2SAT 96
[2023-10-31 00:40] VITALS: O2SAT 97
== END 2023-10-31 01:06 | disposition home or self-care (01) ==
PROVIDERS: Emergency Provider Emergency Medicine; PCP Internal Medicine
DX: E11.65 Type 2 diabetes mellitus with hyperglycemia (principal); N39.0 Urinary tract infection, site not specified; Z79.84 Long term (current) use of oral hypoglycemic drugs
CPT/HCPCS: 36415; 71045; 80048; 81001; 85025; 87086; 93005; 96365; 99285; J0696

== ENCOUNTER 2024-02-18 14:15 | Emergency (ER) | payer MEDICARE, SELFPAY ==
[2024-02-18 14:18] VITALS: BP 152/81; PULSE 97; TEMP 36.5; O2SAT 96; BMI 38.3
--- NOTE | 2024-02-18 14:22 | CT_ITS ---
The [address] [address] Patient Name: ALTON SALMERON MRN: [id number] date: 1940 Sex: F Assigned Patient Location: ER Current Patient Location: ED.MAIN Accession/Order Number: [id number] Exam Date: 02/18/2024 14:35 Report Date: 02/18/2024 15:56 At the request of: BRUCE BOND Procedure: CT head/brain wo con EXAMINATION: CT head/brain wo con, 02/18/2024 2:35 PM EST HISTORY: Fell, hit head, on Coumadin COMPARISON: 10/25/2023 TECHNIQUE: CT scan of the head was performed without IV contrast. CT dose reduction technique was used, including Automated Exposure Control. FINDINGS: BRAIN PARENCHYMA/CSF SPACES: Ventricles are normal in size for age. There is no hemorrhage, mass effect or midline shift. Moderate low attenuation in the white matter consistent with chronic microvascular ischemia. PARANASAL SINUSES: Clear. SKULL BASE AND CALVARIUM: Normal. EXTRACRANIAL SOFT TISSUES: Normal. CT/CT head/brain wo con IMPRESSION: No acute intracranial findings. Electronically authenticated by: KAREN TRAORE Date: 02/18/2024 15:56
--- NOTE | 2024-02-18 14:22 | CT_ITS ---
The [address] [address] Patient Name: ALTON SALMERON MRN: [id number] date: 1940 Sex: F Assigned Patient Location: ER Current Patient Location: ER Accession/Order Number: [id number] Exam Date: 02/18/2024 14:35 Report Date: 02/18/2024 16:13 At the request of: BRUCE BOND Procedure: CT cervical spine wo con EXAM: CT cervical spine wo con HISTORY: fall COMPARISON: CT cervical spine 10/25/2023 TECHNIQUE: CT cervical spine noncontrast. Axial scans with reformatted coronal sagittal images. Individualized radiation dose reduction used for this exam. FINDINGS: No fracture. Normal alignment. Disc spaces preserved. Minor vertebral body spurring. Moderate to severe diffuse facet DJD unchanged. Bony foraminal stenosis most prominent C3-C4 on the left, severe left facet arthropathy at this level. No soft tissue mass or adenopathy or fluid collection. Soft tissue calcification posteriorly unchanged. Normal visualized airway. Prevertebral soft tissues unremarkable. Visualized posterior fossa unchanged with areas of calcification but no new abnormality. Upper chest unremarkable. CT/CT cervical spine wo con IMPRESSION: Negative for fracture or subluxation. Electronically authenticated by: NAYANA MYERS Date: 02/18/2024 16:13
--- NOTE | 2024-02-18 14:23 | ED.GENADUL1 ---
HPI HPI - General Adult General Chief complaint: Fall Stated complaint: FALL Time Seen by Provider: 02/18/24 14:17 Source: patient Mode of arrival: ambulance Limitations: no limitations History of Present Illness HPI narrative: 83-year-old female presents to the emergency department for a fall, which resulted from losing her balance, which resulted in her hitting the back of her head. This happened just before coming into the emergency department at the [facility] where she resides. C-collar was placed by paramedics and they transported her here. She complains of pain to her head. She did not injure her arms or legs and has no other injury. She is on Coumadin for a blood clot. Related Data Home Medications ?Medication ?Instructions ?Recorded ?Confirmed acetaminophen 500 mg tablet 1,000 mg PO DAILY PRN pain 10/25/23 02/18/24 atorvastatin 40 mg tablet 40 mg PO DAILY 10/25/23 02/18/24 carbidopa 25 mg-levodopa 100 mg 1.5 tab PO DAILY 10/25/23 02/18/24 tablet levothyroxine 75 mcg tablet 75 mcg PO DAILY 10/25/23 02/18/24 metformin 500 mg tablet 500 mg PO Q12H 10/25/23 02/18/24 metoprolol tartrate 50 mg tablet 75 mg PO Q12H 10/25/23 02/18/24 mirtazapine 7.5 mg tablet 7.5 mg PO DAILY 10/25/23 02/18/24 omeprazole 20 mg capsule,delayed 20 mg PO DAILY 10/25/23 02/18/24 release venlafaxine 150 mg 150 mg PO DAILY 10/25/23 02/18/24 capsule,extended release 24 hr venlafaxine 75 mg tablet 75 mg PO DAILY 10/25/23 02/18/24 warfarin 2 mg tablet 2 mg PO .complex 10/25/23 02/18/24 estradiol 0.01% (0.1 mg/gram) 1 appful vaginal .weekly 10/30/23 02/18/24 vaginal cream aspirin 81 mg capsule 81 mg PO DAILY 02/18/24 02/18/24 cholecalciferol (vitamin D3) 125 125 mcg PO DAILY 02/18/24 02/18/24 mcg (5,000 unit) capsule cyanocobalamin (vitamin B-12) 1,000 mcg PO DAILY 02/18/24 02/18/24 1,000 mcg capsule diclofenac sodium 1 % topical gel 2 g topical BID PRN pain 02/18/24 02/18/24 polyethylene glycol 3350 17 17 g PO DAILY 02/18/24 02/18/24 gram/dose oral powder (Miralax) tirzepatide 5 mg/0.5 mL 5 mg subcut QWEEK 02/18/24 02/18/24 subcutaneous pen injector (Pastora) vit C 250 mg-E 90 mg-zinc 40 1 tab PO BID 02/18/24 02/18/24 mg-copper 1 [id number] chew tablet (PreserVision AREDS-2) Allergies Allergy/AdvReac Type Severity Reaction Status Date / Time atorvastatin AdvReac Severe Unknown Verified 02/18/24 14:22 hydrocodone (From Vicodin) AdvReac Severe Confusion Verified 02/18/24 14:22 latex AdvReac Severe Rash Verified 02/18/24 14:22 Opioid HPI Opioid Management Most Recent Opioid Data: No Data to Display Review of Systems ROS Narrative A ten point review of systems is negative except as noted above. 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 - Benign neoplasm of cerebral meninges (ICD-10) Dermatophytosis ?B35.9 - Dermatophytosis, unspecified (ICD-10) Urgency of urination ?R39.15 - Urgency of urination (ICD-10) Unsteadiness on feet ?R26.81 - Unsteadiness on feet (ICD-10) Vaginitis ?N76.0 - Acute vaginitis (ICD-10) Occipital neuralgia ?M54.81 - Occipital neuralgia (ICD-10) Collapsed vertebra ?M48.50XA - Collapsed vertebra, not elsewhere classified, site unspecified, initial encounter for fracture (ICD-10) Osteoarthritis ?M19.90 - Unspecified osteoarthritis, unspecified site (ICD-10) Seborrheic dermatitis ?L21.9 - Seborrheic dermatitis, unspecified (ICD-10) Gastro-esophageal reflux ?K21.9 - Gastro-esophageal reflux disease without esophagitis (ICD-10) Venous insufficiency ?I87.2 - Venous insufficiency (chronic) (peripheral) (ICD-10) Deep vein phlebitis and thrombophlebitis of lower extremity ?I80.209 - Phlebitis and thrombophlebitis of unspecified deep vessels of unspecified lower extremity (ICD-10) Peripheral vascular disease ?I73.9 - Peripheral vascular disease, unspecified (ICD-10) Atherosclerotic heart disease ?I25.10 - Atherosclerotic heart disease of [place] coronary artery without angina pectoris (ICD-10) Macular degeneration ?H35.30 - Unspecified macular degeneration (ICD-10) Sleep apnea ?G47.30 - Sleep apnea, unspecified (ICD-10) Parkinson disease ?G20.A1 - Parkinson's disease without dyskinesia, without mention of fluctuations (ICD-10) Hyperlipidemia ?E78.5 - Hyperlipidemia, unspecified (ICD-10) Obesity ?E66.9 - Obesity, unspecified (ICD-10) Diabetes mellitus ?E11.9 - Type 2 diabetes mellitus without complications (ICD-10) Exam Narrative Exam Narrative: Nurses note and vital signs reviewed and patient is not hypoxic. General: The patient appears in no apparent distress. Patient has a c-collar in place Skin: Warm, dry, no pallor noted. There is no rash noted. Head: Normocephalic, atraumatic Eye: Normal conjunctiva, no drainage Ears, Nose, Mouth, and Throat: oral mucosa is moist. Nares patent. Cardiovascular: Regular Rate and Rhythm Respiratory: Patient is in no distress, no accessory muscle use, lungs are clear to auscultation, no wheezing, rales or rhonchi GI: Soft and nontender Musculoskeletal: All 4 extremities have good range of motion. No palpable tenderness to her hips or shoulders. Neurological: A&O x4, normal speech Psychiatric: Cooperative Constitutional Vital Signs, click to edit/add: Last Vital Signs Temp 97.7 F 02/18/24 14:18 Pulse 97 H 02/18/24 14:18 Resp 20 02/18/24 14:18 BP 152/81 H 02/18/24 14:18 Pulse Ox 96 02/18/24 14:18 Course Vital Signs Vital signs: Vital Signs Temperature 97.7 F 02/18/24 14:18 Pulse Rate 97 H 02/18/24 14:18 Respiratory Rate 20 02/18/24 14:18 Blood Pressure 152/81 H 02/18/24 14:18 Pulse Oximetry 96 02/18/24 14:18 Temperature 97.7 F 02/18/24 14:18 Pulse Rate 97 H 02/18/24 14:18 Respiratory Rate 20 02/18/24 14:18 Blood Pressure 152/81 H 02/18/24 14:18 Pulse Oximetry 96 02/18/24 14:18 Medical Decision Making MDM Narrative Medical decision making narrative: CT of brain and C-spine are both negative. She is released back to [facility] and findings were discussed with the patient. Differential Diagnosis Differential Diagnosis: Contusion, subdural hematoma, epidural hematoma, subarachnoid hemorrhage, c Imaging Data CT scan - head: Radiologist's impression: ITS Impressions Cervical Spine CT 02/18/24 14:22 IMPRESSION: Negative for fracture or subluxation. Electronically authenticated by: NAYANA MYERS Date: 02/18/2024 16:[address] 02/18/24 14:22 IMPRESSION: No acute intracranial findings. Electronically authenticated by: KAREN TRAORE Date: 02/18/2024 15:56 Discharge Plan Discharge Chief Complaint: Fall Clinical Impression: Fall Contusion of head Qualifiers: Encounter type: initial encounter Contusion of head detail: scalp Qualified Code(s): S00.03XA - Contusion of scalp, initial encounter Patient Disposition: Home, Self-Care Time of Disposition Decision: 16:22 Condition: Good Mode of Transportation: Private Vehicle Prescriptions / Home Meds: No Action acetaminophen 500 mg tablet 1,000 mg PO DAILY PRN (Reason: pain) atorvastatin 40 mg tablet 40 mg PO DAILY carbidopa-levodopa 25-100 mg tablet 1.5 tab PO DAILY Rx Instructions: an additional 1 tab 3 x daily levothyroxine 75 mcg tablet 75 mcg PO DAILY metformin 500 mg tablet 500 mg PO Q12H metoprolol tartrate 50 mg tablet 75 mg PO Q12H mirtazapine 7.5 mg tablet 7.5 mg PO DAILY omeprazole 20 mg capsule,delayed release(DR/EC) 20 mg PO DAILY venlafaxine 150 mg capsule,extended release 24hr 150 mg PO DAILY venlafaxine 75 mg tablet 75 mg PO DAILY warfarin 2 mg tablet 2 mg PO .complex Rx Instructions: 3mg tablet once a day tu, wed, Fri 2mg tablet once a day sun.mon. thur,sat estradiol 0.01 % (0.1 mg/gram) cream 1 appful VAGINAL .weekly aspirin 81 mg capsule 81 mg PO DAILY diclofenac sodium 1 % gel 2 g topical BID PRN (Reason: pain) Rx Instructions: apply to single elbow, wrist or hand; for hand includes palm/fingers/back of hand Mounjaro 5 mg/0.5 mL pen injector 5 mg subcut QWEEK polyethylene glycol 3350 [Miralax] 17 gram/dose powder 17 g PO DAILY PreserVision AREDS-2 250-90-40-1 mg tablet,chewable 1 tab PO BID cyanocobalamin (vitamin B-12) 1,000 mcg capsule 1,000 mcg PO DAILY cholecalciferol (vitamin D3) 125 mcg (5,000 unit) capsule 125 mcg PO DAILY Print Language: Japanese Instructions: Fall Prevention for Older Adults (ED) Referrals: HONEY QUINONEZ [Primary Care Provider] - 1 week
== END 2024-02-18 16:59 | disposition home or self-care (01) ==
PROVIDERS: Emergency Provider Emergency Medicine; PCP Internal Medicine
DX: S00.03XA Contusion of scalp, initial encounter (principal); W18.39XA Other fall on same level, initial encounter; Z79.01 Long term (current) use of anticoagulants; M47.812 Spondylosis without myelopathy or radiculopathy, cervical region; M48.02 Spinal stenosis, cervical region
CPT/HCPCS: 70450; 72125; 99284

== ENCOUNTER 2024-03-15 12:41 | Inpatient (IN) | payer MEDICARE, SELFPAY ==
[2024-03-15] VITALS (68 sets, daily range): BP systolic 121–163; BP diastolic 57–116; PULSE 85–140; TEMP 36.9–37; O2SAT 46–100; BMI 76.5
--- NOTE | 2024-03-15 12:54 | XR_ITS ---
The [address] [address] Patient Name: ALTON SALMERON MRN: [id number] date: 1940 Sex: F Assigned Patient Location: ER Current Patient Location: ER Accession/Order Number: [id number] Exam Date: 03/15/2024 13:14 Report Date: 03/15/2024 13:44 At the request of: BRUCE BOND Procedure: XR chest 1V EXAM: XR chest 1V HISTORY: Weak COMPARISON: 10/30/2023 TECHNIQUE: Portable FINDINGS: No focal infiltrates are seen. No effusions are noted. No acute findings. XR/XR chest 1V IMPRESSION: No acute findings. Electronically authenticated by: Junaid FAUSTIN Date: 03/15/2024 13:44
--- NOTE | 2024-03-15 12:54 | ECG_ITS ---
The [facility] Test Date: 2024-03-15 Pat Name: ALTON SALMERON Department: Room: - Gender: Female [employer]: : 1940 Requested By: 1030 Order Number: [id number] Reading MD: BENEDICTO HURTADO Measurements Intervals [place] Rate: 93 P: 30 LA: 140 QRS: 23 QRSD: 74 T: 51 QT: 346 QTc: 397 Interpretive Statements 1100 Sinus rhythm 1570 with occasional ventricular premature complexes 8102 Low QRS voltage in chest leads 9140 abnormal rhythm ECG Compared to ECG 10/30/2023 22:00:03 Ventricular premature complex(es) now present Low QRS voltage now present Electronically Signed On 03-17-2024 8:18:42 EST by BENEDICTO HURTADO
--- NOTE | 2024-03-15 12:55 | ED_ITS ---
HPI HPI - General Adult General Chief complaint: Weakness Stated complaint: OTHER Time Seen by Provider: 03/15/24 12:50 Source: patient Mode of arrival: ambulance History of Present Illness HPI narrative: 83-year-old female presents to the emergency department for feeling weak and allegedly being COVID-positive. She comes in from an [facility] ambulance with the symptoms. She is not complaining of any pain and has not been vomiting. Symptoms started a few days ago. Related Data Home Medications ?Medication ?Instructions ?Recorded ?Confirmed acetaminophen 500 mg tablet 1,000 mg PO DAILY PRN pain 10/25/23 02/18/24 atorvastatin 40 mg tablet 40 mg PO DAILY 10/25/23 02/18/24 carbidopa 25 mg-levodopa 100 mg 1.5 tab PO DAILY 10/25/23 02/18/24 tablet levothyroxine 75 mcg tablet 75 mcg PO DAILY 10/25/23 02/18/24 metformin 500 mg tablet 500 mg PO Q12H 10/25/23 02/18/24 metoprolol tartrate 50 mg tablet 75 mg PO Q12H 10/25/23 02/18/24 mirtazapine 7.5 mg tablet 7.5 mg PO DAILY 10/25/23 02/18/24 omeprazole 20 mg capsule,delayed 20 mg PO DAILY 10/25/23 02/18/24 release venlafaxine 150 mg 150 mg PO DAILY 10/25/23 02/18/24 capsule,extended release 24 hr venlafaxine 75 mg tablet 75 mg PO DAILY 10/25/23 02/18/24 warfarin 2 mg tablet 2 mg PO .complex 10/25/23 02/18/24 estradiol 0.01% (0.1 mg/gram) 1 appful vaginal .weekly 10/30/23 02/18/24 vaginal cream aspirin 81 mg capsule 81 mg PO DAILY 02/18/24 02/18/24 cholecalciferol (vitamin D3) 125 125 mcg PO DAILY 02/18/24 02/18/24 mcg (5,000 unit) capsule cyanocobalamin (vitamin B-12) 1,000 mcg PO DAILY 02/18/24 02/18/24 1,000 mcg capsule diclofenac sodium 1 % topical gel 2 g topical BID PRN pain 02/18/24 02/18/24 polyethylene glycol 3350 17 17 g PO DAILY 02/18/24 02/18/24 gram/dose oral powder (Miralax) tirzepatide 5 mg/0.5 mL 5 mg subcut QWEEK 02/18/24 02/18/24 subcutaneous pen injector (Marco Antoniounterellro) vit C 250 mg-E 90 mg-zinc 40 1 tab PO BID 02/18/24 02/18/24 mg-copper 1 [id number]-icxcpv-easumv chew tablet (PreserVision AREDS-2) Allergies Allergy/AdvReac Type Severity Reaction Status Date / Time atorvastatin AdvReac Severe Unknown Verified 03/15/24 12:43 hydrocodone (From Vicodin) AdvReac Severe Confusion Verified 03/15/24 12:43 latex AdvReac Severe Rash Verified 03/15/24 12:43 Opioid HPI Opioid Management Most Recent Opioid Data: No Data to Display Review of Systems ROS Narrative A ten point review of systems is negative except as noted above. 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 - Benign neoplasm of cerebral meninges (ICD-10) Dermatophytosis ?B35.9 - Dermatophytosis, unspecified (ICD-10) Urgency of urination ?R39.15 - Urgency of urination (ICD-10) Unsteadiness on feet ?R26.81 - Unsteadiness on feet (ICD-10) Vaginitis ?N76.0 - Acute vaginitis (ICD-10) Occipital neuralgia ?M54.81 - Occipital neuralgia (ICD-10) Collapsed vertebra ?M48.50XA - Collapsed vertebra, not elsewhere classified, site unspecified, initial encounter for fracture (ICD-10) Osteoarthritis ?M19.90 - Unspecified osteoarthritis, unspecified site (ICD-10) Seborrheic dermatitis ?L21.9 - Seborrheic dermatitis, unspecified (ICD-10) Gastro-esophageal reflux ?K21.9 - Gastro-esophageal reflux disease without esophagitis (ICD-10) Venous insufficiency ?I87.2 - Venous insufficiency (chronic) (peripheral) (ICD-10) Deep vein phlebitis and thrombophlebitis of lower extremity ?I80.209 - Phlebitis and thrombophlebitis of unspecified deep vessels of unspecified lower extremity (ICD-10) Peripheral vascular disease ?I73.9 - Peripheral vascular disease, unspecified (ICD-10) Atherosclerotic heart disease ?I25.10 - Atherosclerotic heart disease of [place] coronary artery without angina pectoris (ICD-10) Macular degeneration ?H35.30 - Unspecified macular degeneration (ICD-10) Sleep apnea ?G47.30 - Sleep apnea, unspecified (ICD-10) Parkinson disease ?G20.A1 - Parkinson's disease without dyskinesia, without mention of fluctuations (ICD-10) Hyperlipidemia ?E78.5 - Hyperlipidemia, unspecified (ICD-10) Obesity ?E66.9 - Obesity, unspecified (ICD-10) Diabetes mellitus ?E11.9 - Type 2 diabetes mellitus without complications (ICD-10) Social History Little interest or pleasure in doing things: not at all Feeling down, depressed, or hopeless: several days Exam Narrative Exam Narrative: Nurses note and vital signs reviewed and patient is not hypoxic. General: The patient appears in no apparent distress. Patient is resting comf ortably on cart. Skin: Warm, dry, no pallor noted. There is no rash noted. Head: Normocephalic, atraumatic Eye: Normal conjunctiva, no drainage Ears, Nose, Mouth, and Throat: oral mucosa is moist. Nares patent. Cardiovascular: Regular Rate and Rhythm Respiratory: Patient is in no distress, no accessory muscle use, lungs are clear to auscultation, no wheezing, rales or rhonchi Back: non-tender GI: Soft and nontender Musculoskeletal: The patient has no evidence of calf tenderness, no pitting edema, symmetrical pulses noted bilaterally Neurological: A&O, normal speech Psychiatric: Cooperative Constitutional Vital Signs, click to edit/add: Last Vital Signs Temp 98.6 F 03/15/24 12:43 Pulse 88 03/15/24 14:20 Resp 9 L 03/15/24 14:20 BP 121/66 03/15/24 12:44 Pulse Ox 96 03/15/24 13:40 O2 Del Method Room Air 03/15/24 12:43 Course Vital Signs Vital signs: Vital Signs Temperature 98.6 F 03/15/24 12:43 Pulse Rate 94 H 03/15/24 12:43 Respiratory Rate 18 03/15/24 12:43 Blood Pressure 121/66 03/15/24 12:43 Pulse Oximetry 96 03/15/24 12:43 Oxygen Delivery Method Room Air 03/15/24 12:43 Temperature 98.6 F 03/15/24 12:43 Pulse Rate 88 03/15/24 14:20 Respiratory Rate 9 L 03/15/24 14:20 Blood Pressure 121/66 03/15/24 12:44 Pulse Oximetry 96 03/15/24 13:40 Oxygen Delivery Method Room Air 03/15/24 12:43 Medical Decision Making MDM Narrative Medical decision making narrative: Testing shows presence of COVID and the rest of her workup including chest x-ray is negative. Her vital signs are normal and she does not require admission to the hospital. Treatment diagnosis and follow-up were discussed with the patient. Differential Diagnosis Differential Diagnosis: COVID, influenza, pneumonia, viral illness Lab Data Lab results reviewed: Yes I reviewed the patient's lab results Labs: Lab Results 03/15/24 03/15/24 Range/Units 12:55 13:05 WBC 7.2 (4.0-11.0) 10^3/uL RBC 3.80 L (4.20-5.40) 10^6/uL Hgb 11.5 L (12.0-16.0) g/dL Hct 36.8 (36.0-48.0) % MCV 96.8 (81.0-99.0) fL MCH 30.3 (26.7-34.0) pg MCHC 31.3 (29.9-35.2) g/dL RDW 16.1 H (11.0-15.0) % Plt Count 175 (150-450) 10^3/uL MPV 10.1 (9.5-13.5) fL Neut % (Auto) 73.3 (43.0-75.0) % Lymph % (Auto) 15.7 L (20.5-60.0) % [place] % (Auto) 10.2 (1.7-12.0) % Eos % (Auto) 0.1 L (0.9-7.0) % Baso % (Auto) 0.3 (0.2-2.0) % Neut # (Auto) 5.3 (1.4-6.5) 10^3/uL Lymph # (Auto) 1.1 L (1.2-3.8) 10^3/uL [place] # (Auto) 0.7 (0.3-0.8) 10^3/uL Eos # (Auto) 0.0 (0.0-0.7) 10^3/uL Baso # (Auto) 0.0 (0.0-0.1) 10^3/uL Abs Immat Gran (auto) 0.03 (0.00-0.03) 10^3/uL Imm/Tot Granulo (auto) 0.4 (0.0-0.5) % Sodium 140 (136-145) mmol/L Potassium 3.9 (3.5-5.1) mmol/L Chloride 103 (98-107) mmol/L Carbon Dioxide 29.5 (21.0-32.0) mmol/L Anion Gap 11.4 BUN 17.0 (7.0-18.0) mg/dL Creatinine 1.14 H (0.55-1.02) mg/dL Est GFR ( Amer) 55 L (>=60 mL/min/1.73m^2) Est GFR (Non-Af Amer) 46 L (>=60 mL/min/1.73m^2) BUN/Creatinine Ratio 14.9 Glucose 138 H (74-106) mg/dL Calcium 9.1 (8.5-10.1) mg/dL Troponin I High Sens 6.4 (4.0-51.3) pg/mL Influenza Type A Ag Negative Influenza Type B Ag Negative SARS-CoV-2 Ag (CV2AG) Positive A (NEGATIVE) Imaging Data Chest x-ray: Radiologist's impression: ITS Impressions Chest X-Ray 03/15/24 12:54 IMPRESSION: No acute findings. Electronically authenticated by: Junaid FAUSTIN Date: 03/15/2024 13:44 Discharge Plan Discharge Chief Complaint: Weakness Clinical Impression: COVID-19 Patient Disposition: Home, Self-Care Time of Disposition Decision: 14:48 Condition: Good Mode of Transportation: Private Vehicle Prescriptions / Home Meds: No Action acetaminophen 500 mg tablet 1,000 mg PO DAILY PRN (Reason: pain) atorvastatin 40 mg tablet 40 mg PO DAILY carbidopa-levodopa 25-100 mg tablet 1.5 tab PO DAILY Rx Instructions: an additional 1 tab 3 x daily levothyroxine 75 mcg tablet 75 mcg PO DAILY metformin 500 mg tablet 500 mg PO Q12H metoprolol tartrate 50 mg tablet 75 mg PO Q12H mirtazapine 7.5 mg tablet 7.5 mg PO DAILY omeprazole 20 mg capsule,delayed release(DR/EC) 20 mg PO DAILY venlafaxine 150 mg capsule,extended release 24hr 150 mg PO DAILY venlafaxine 75 mg tablet 75 mg PO DAILY warfarin 2 mg tablet 2 mg PO .complex Rx Instructions: 3mg tablet once a day , tue, Tue 2mg tablet once a day sun.tue. thur,sat estradiol 0.01 % (0.1 mg/gram) cream 1 appful VAGINAL .weekly aspirin 81 mg capsule 81 mg PO DAILY diclofenac sodium 1 % gel 2 g topical BID PRN (Reason: pain) Rx Instructions: apply to single elbow, wrist or hand; for hand includes palm/fingers/back of hand Mounjaro 5 mg/0.5 mL pen injector 5 mg subcut QWEEK polyethylene glycol 3350 [Miralax] 17 gram/dose powder 17 g PO DAILY PreserVision AREDS-2 250-90-40-1 mg tablet,chewable 1 tab PO BID cyanocobalamin (vitamin B-12) 1,000 mcg capsule 1,000 mcg PO DAILY cholecalciferol (vitamin D3) 125 mcg (5,000 unit) capsule 125 mcg PO DAILY Print Language: Afghan Instructions: COVID-19 (Coronavirus Disease 2019) (ED), COVID-19: Slow the Coronavirus Spread (ED), Face Coverings (Masks) and COVID-19 (ED) Referrals: HONEY QUINONEZ [Primary Care Provider] - 1 week
[2024-03-15 13:12] LABS: Basophils Percent Auto 0.3 % (0.2-2.0); Eosinophils Percent Auto 0.1 % (0.9-7.0); Hematocrit 36.8 % (36.0-48.0); Hemoglobin 11.5 g/dL (12.0-16.0); Immature Granulocytes Abs Auto 0.03 10^3/uL (0.00-0.03); Immature Granulocytes Pct Auto 0.4 % (0.0-0.5); Lymphocytes Absolute Auto 1.1 10^3/uL (1.2-3.8); Lymphocytes Percent Auto 15.7 % (20.5-60.0); Mean Corpuscular HGB Conc 31.3 g/dL (29.9-35.2); Mean Corpuscular Hemoglobin 30.3 pg (26.7-34.0); Mean Corpuscular Volume 96.8 fL (81.0-99.0); Mean Platelet Volume 10.1 fL (9.5-13.5); Monocytes Absolute Auto 0.7 10^3/uL (0.3-0.8); Monocytes Percent Auto 10.2 % (1.7-12.0); Neutrophils Absolute Auto 5.3 10^3/uL (1.4-6.5); Neutrophils Percent Auto 73.3 % (43.0-75.0); Platelet Count 175 10^3/uL (150-450); Red Cell Distribution Width 16.1 % (11.0-15.0); White Blood Count 7.2 10^3/uL (4.0-11.0)
[2024-03-15 13:21] LABS: Influenza Virus A Antigen Negative; Influenza Virus B Antigen Negative; Internal Control Within Normal Limits
[2024-03-15 13:22] LABS: Internal Control Within Normal Limits; SARS-CoV-2 Ag POSITIVE (NEGATIVE)
[2024-03-15] MEDS: 0.9 % SODIUM CHLORIDE 500 ML IV (13:38)
[2024-03-15 13:51] LABS: Anion Gap 11.4; BUN Creatinine Ratio 14.9; Calcium 9.1 mg/dL (8.5-10.1); Carbon Dioxide 29.5 mmol/L (21.0-32.0); Chloride 103 mmol/L (98-107); Estimated GFR (African America 55 (>=60 mL/min/1.73m^2); Estimated GFR (Non-African Ame 46 (>=60 mL/min/1.73m^2); Glucose 138 mg/dL (74-106); Potassium 3.9 mmol/L (3.5-5.1); Sodium 140 mmol/L (136-145); Troponin I High Sensitivity 6.4 pg/mL (4.0-51.3)
--- NOTE | 2024-03-15 18:08 | P.HP_ITS ---
HPI H&P: HPI History of Present Illness Chief complaint: OTHER Narrative: Patient has been sick the last couple days, tested positive for COVID, difficulty with ambulating and falls x 2, presented to the emergency room with acute COVID-19. When I saw patient in the emergency room, resting comfortably in bed, does have some maybe minimal conversational dyspnea, some cough throughout the evaluation though. 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 - Benign neoplasm of cerebral meninges (ICD-10) Dermatophytosis ?B35.9 - Dermatophytosis, unspecified (ICD-10) Urgency of urination ?R39.15 - Urgency of urination (ICD-10) Unsteadiness on feet ?R26.81 - Unsteadiness on feet (ICD-10) Vaginitis ?N76.0 - Acute vaginitis (ICD-10) Occipital neuralgia ?M54.81 - Occipital neuralgia (ICD-10) Collapsed vertebra ?M48.50XA - Collapsed vertebra, not elsewhere classified, site unspecified, initial encounter for fracture (ICD-10) Osteoarthritis ?M19.90 - Unspecified osteoarthritis, unspecified site (ICD-10) Seborrheic dermatitis ?L21.9 - Seborrheic dermatitis, unspecified (ICD-10) Gastro-esophageal reflux ?K21.9 - Gastro-esophageal reflux disease without esophagitis (ICD-10) Venous insufficiency ?I87.2 - Venous insufficiency (chronic) (peripheral) (ICD-10) Deep vein phlebitis and thrombophlebitis of lower extremity ?I80.209 - Phlebitis and thrombophlebitis of unspecified deep vessels of unspecified lower extremity (ICD-10) Peripheral vascular disease ?I73.9 - Peripheral vascular disease, unspecified (ICD-10) Atherosclerotic heart disease ?I25.10 - Atherosclerotic heart disease of [place] coronary artery without angina pectoris (ICD-10) Macular degeneration ?H35.30 - Unspecified macular degeneration (ICD-10) Sleep apnea ?G47.30 - Sleep apnea, unspecified (ICD-10) Parkinson disease ?G20.A1 - Parkinson's disease without dyskinesia, without mention of fluctuations (ICD-10) Hyperlipidemia ?E78.5 - Hyperlipidemia, unspecified (ICD-10) Obesity ?E66.9 - Obesity, unspecified (ICD-10) Diabetes mellitus ?E11.9 - Type 2 diabetes mellitus without complications (ICD-10) Social History Little interest or pleasure in doing things: not at all Feeling down, depressed, or hopeless: several days Meds Home Medications and Allergies Home Medications ?Medication ?Instructions ?Recorded ?Confirmed ?Type acetaminophen 500 mg tablet 1,000 mg PO DAILY PRN pain 10/25/23 03/15/24 History atorvastatin 40 mg tablet 40 mg PO DAILY 10/25/23 03/15/24 History carbidopa 25 mg-levodopa 100 mg 1.5 tab PO DAILY 10/25/23 03/15/24 History tablet levothyroxine 75 mcg tablet 75 mcg PO DAILY 10/25/23 03/15/24 History metformin 500 mg tablet 500 mg PO Q12H 10/25/23 03/15/24 History mirtazapine 7.5 mg tablet 7.5 mg PO DAILY 10/25/23 03/15/24 History omeprazole 20 mg capsule,delayed 20 mg PO DAILY 10/25/23 03/15/24 History release venlafaxine 150 mg 150 mg PO DAILY 10/25/23 03/15/24 History capsule,extended release 24 hr venlafaxine 75 mg tablet 75 mg PO DAILY 10/25/23 03/15/24 History warfarin 2 mg tablet 3 mg PO .complex 10/25/23 03/15/24 History estradiol 0.01% (0.1 mg/gram) 1 appful vaginal .weekly 10/30/23 03/15/24 History vaginal cream aspirin 81 mg capsule 81 mg PO DAILY 02/18/24 03/15/24 History cholecalciferol (vitamin D3) 125 125 mcg PO DAILY 02/18/24 03/15/24 History mcg (5,000 unit) capsule cyanocobalamin (vitamin B-12) 1,000 mcg PO DAILY 02/18/24 03/15/24 History 1,000 mcg capsule diclofenac sodium 1 % topical gel 2 g topical BID PRN pain 02/18/24 03/15/24 History polyethylene glycol 3350 17 17 g PO DAILY 02/18/24 03/15/24 History gram/dose oral powder (Miralax) tirzepatide 5 mg/0.5 mL 5 mg subcut QWEEK 02/18/24 03/15/24 History subcutaneous pen injector (Pastora) vit C 250 mg-E 90 mg-zinc 40 1 tab PO BID 02/18/24 03/15/24 History mg-copper 1 [id number] chew tablet (PreserVision AREDS-2) carbidopa 25 mg-levodopa 100 mg 1 tab PO TID 03/15/24 03/15/24 History tablet dextromethorphan-guaifenesin 10 1 tab-cap PO Q8H 03/15/24 03/15/24 History mg-200 mg capsule (Robitussin Cough-Chest Congestion DM) fluocinolone 0.01 % scalp oil and 1 applic topical .QD PRN 03/15/24 03/15/24 History shower cap DIRECTED ketoconazole 2 % shampoo 1 applic topical MOWEFR@09 PRN 03/15/24 03/15/24 History DIRECTED lidocaine 4 % topical patch 1 patch topical DAILY 03/15/24 03/15/24 History (Aspercreme (lidocaine)) metoprolol tartrate 50 mg tablet 50 mg PO Q12H 03/15/24 03/15/24 History vit C 250 mg-E 90 mg-zinc 40 1 tab PO BID 03/15/24 03/15/24 History mg-copper 1 be-omiqnr-jewwxk chew tablet (PreserVision AREDS-2) Allergies Allergy/AdvReac Type Severity Reaction Status Date / Time atorvastatin AdvReac Severe Unknown Verified 03/15/24 12:43 hydrocodone (From Vicodin) AdvReac Severe Confusion Verified 03/15/24 12:43 latex AdvReac Severe Rash Verified 03/15/24 12:43 Exam Constitutional Vital Signs, click to edit/add: Last Vital Signs Temp 98.6 F 03/15/24 12:43 Pulse 90 03/15/24 17:00 Resp 16 03/15/24 17:00 BP 121/66 03/15/24 12:44 Pulse Ox 96 03/15/24 17:00 O2 Del Method Room Air 03/15/24 12:43 Documenting provider has reviewed patient's vital signs: yes Common normals: no apparent distress Chest Common normals: inspection of chest normal Respiratory Common normals: no retractions; abnormal respiratory effort (Maybe some mild conversational dyspnea) Effort & inspection: does not use accessory muscles Auscultation: rhonchi Cardio Common normals: regular rate and regular rhythm Neuro Common normals: oriented x3, CN's II-XII intact bilaterally and moves all extremities Results Labs Labs: Short CBC 03/15/24 Range/Units 13:05 WBC 7.2 (4.0-11.0) 10^3/uL Hgb 11.5 L (12.0-16.0) g/dL Hct 36.8 (36.0-48.0) % Plt Count 175 (150-450) 10^3/uL BMP 03/15/24 13:05 Sodium 140 Potassium 3.9 Chloride 103 Carbon Dioxide 29.5 BUN 17.0 Creatinine 1.14 H Glucose 138 H Calcium 9.1 Assessment and Plan Assessment and Plan (1) COVID-19: (2) Fall: (3) Acute hyperglycemia: Plan Admission findings: Tachycardia, acute elevation in creatinine secondary to acute COVID-19, with patient's age, diabetes, Parkinson's and a history of coronary artery disease patient is at high risk for progression to severe COVID. Will admit patient COVID-19 without significant hypoxia at this time-hold off on remdesivir but will do all the other usual treatments. Inhalers, steroids, Zyrtec, Pepcid if patient's condition deteriorates will start patient on remdesivir History of acute UTI-will check urinalysis Iron deficiency anemia-monitor daily Mild acute dehydration with acute elevation in her creatinine of 132.6% above baseline, holding off on IV fluids secondary to patients with COVID-19 preferring to keep them on the dry side Depression-continue with home medications GERD continue with antacid medicines, Pepcid seems to be helpful with COVID-19, so we will go with that instead of the omeprazole Hypertension with a history coronary artery disease-maintain current medications Admission status: Patient with acute COVID-19 and progressed weak quickly to weakness and mild dehydration, with patient's heart disease diabetes and Parkinson's she is at high risk for complications due to COVID-19, will be aggressive with management holding off only on the remdesivir secondary to no hypoxia, medically necessary treatment will span 2 midnights. Inpatient status
[2024-03-15 21:43] LABS: Glucometer 91 mg/dL (74-106)
[2024-03-15] MEDS: FAMOTIDINE 20 MG TABLET 40 MG PO (22:11)
[2024-03-15] MEDS: MIRTAZAPINE 15 MG TABLET 7.5 MG PO (22:12)
[2024-03-15] MEDS: ATORVASTATIN CALCIUM 40 MG TABLET PO (22:12)
[2024-03-15] MEDS: VITS A,C,E/LUTEIN/MINERALS 1 TABLET 1 TAB PO (22:12)
[2024-03-15] MEDS: METOPROLOL TARTRATE 50 MG TABLET PO (22:13)
[2024-03-15] MEDS: METFORMIN HCL 500 MG TABLET PO (22:59)
[2024-03-15] MEDS: WARFARIN SODIUM 1 MG TABLET 2 MG PO (22:59)
--- OUTSIDE RECORDS SUMMARY | 2024-03-15 23:26 | XMS_ITS | CCD ---
Author Organization [facility] Care Team Providers Care Sensory Scientist Name Role Phone Honey Rabago Primary Care Provider Honey Rabago Attending Provider Anu Alva Unavailable Honey Rabago DO Primary Care Provider Honey Rabago DO Primary Care Provider Oswaldo Almonte Unavailable DO Honey Rabago Primary Care Provider DO Alton Valderrama Emergency Provider DO Holger Dorado Emergency Provider [phone] DO Honey Rabago Attending Provider DO Marvin Peter Emergency Provider MD Enrrique Mota Admit Provider MD Jairo Benson Other Provider MD Oswaldo Almonte E Other Provider MD Gaye Claire Attending Provider [phone] MD lAcides Moya Admit Provider MD Alcides Moya Attending Provider KORTNEY Mehta Other Provider Unavailable KORTNEY Hannah Other Provider Unavailable KORTNEY Dutton Other Provider Unavailable KORTNEY Garrett Other Provider Unavailable KORTNEY Smith Other Provider Unavailable KORTNEY Ayon Other Provider Unavailable MD Familia Villatoro Other Provider Toney, MD Misha K Other Provider HEIDI Coronado M Other Provider [...] Provider MD Damion Thapa Other Provider Cortney, REGIONAL OFFICE COORDINATOR-C Faustina J Other Provider MD Valente Lauren Other Provider [...] Other Provider MD Misha Ziegler Other Provider Ivonne, HEIDI Meyer Other Provider [phone] DO Vincent Tellezr Other Provider MD George Chan Other Provider DO Justice De Oliveira Other Provider MD Enrrique Mota Other Provider [phone] MD Rosa Maria Odell Other Provider Angeli, ANP-BC Tonya Other Provider MD Juan Wallace Other Provider MD Jerson Walker Other Provider MD Gaye Calire Other Provider MD Queta Mclain Other Provider [...] Other Provider DO Sony Canela Other Provider [phone] HEIDI Jaimes Other Provider DO Lázaro Pratt Other Provider MD Corona Weathers Other Provider KORTNEY Terry Other Provider Unavailable DO Honey Rabago Attending Provider Honey Rabago DO Primary Care Provider DO Honey Rabago Primary Care Provider [phone] DO Honey Rabago Attending Provider [phone] HIMA, DR MÉNDEZ Admitting Unavailable VASCHAK, DR MÉNDEZ [...] Admitting Unavailable HIMA, DR MÉNDEZ Consulting Unavailable Honey Rabago DO Primary Care Provider [phone] Honey Rabago DO Primary Care Provider Honey Rabago DO Primary Care Provider [phone] Albin Sherman MD Unavailable [phone] HONEY RABAGO Attending Unavailable HONEY RABAGO Referring Unavailable MAC VILLASENOR Referring Unavailable URBANO HUTTON Attending Unavailable HONEY RABAGO Attending Unavailable HONEY RABAGO Referring Unavailable LIS PAEZ Attending Unavailable SABRINA, URBANO Lamb Attending Unavailable SIXTO APONTE Attending Unavailable HAMILTON, MAC Attending Unavailable HONEY RABAGO Referring Unavailable URBANO HUTTON Attending Unavailable HAMILTON, MAC Attending Unavailable HONEY RABAGO Referring Unavailable LAURIE, LIS Attending Unavailable URBANO HUTTON Attending Unavailable HAMILTON, MAC Attending Unavailable AUDREY TORRES Attending Unavailable GLORIA PEREZ Referring Unavailable HIMA, HONEY MCGRATH Primary Care Unavailab GLORIA Villeda Attending Unavailable GLORIA PEREZ Referring Unavailable HIMA, HONEY MCGRATH Primary Care Unavailab GLORIA Villeda Attending Unavailable HIMA, HONEY MCGRATH [facility] Unavailab GLORIA Villeda Attending Unavailable HIMA, HONEY MCGRATH [facility] Unavailab Lillian Simmons Attending Unavailable Lillian Hutton Admitting Unavailable Honey Rabago Primary Care Unavailable Lillian Hutton Attending Unavailable Lillian Hutton Admitting Unavailable Hima, Honey Primary Care Unavailable Allergies Allergy Classification Reported Allergen(s) Allergy Type Date of Onset Reaction(s) Facility Aminoketones (1 source) buPROPion Drug Allergy 08-01-19 Hallucinating [facility] Latex (1 source) Latex Substance Allergy 08-01-19 Rash [facility] Opioid Agonists (1 source) HYDROcodone Drug Allergy 08-01-19 Unknown Reaction [facility] (20 sources) Acetaminophen / HYDROcodone; Translations: [Vicodin] Drug Allergy Unknown [facility] Repository (20 sources) buPROPion; Translations: [BUPROPION] Drug Allergy 01-19-20 17 Mental Status Change, Other [facility] Work Phone: (20 sources) Latex Propensity to adverse reactions 11-05-19 22 Unknown, Rash [facility] (20 sources) Acetaminophen / HYDROcodone; Translations: [HYDROCODONE-ACETAM INOPHEN] Drug Allergy 04-13-19 17 Mental Status Change, Other [facility] (16 sources) Adhesive Tape; Translations: [ADHESIVE TAPE (ROSINS)] Allergy to substance 01-13-20 Rash [facility] Work Phone: (20 sources) Latex; Translations: [LATEX, NATURAL RUBBER] Drug Allergy 04-13-19 17 [facility] (16 sources) rosuvastatin; Translations: [ROSUVASTATIN CALCIUM] Drug Allergy 01-13-20 [facility] Work Phone: (20 sources) HYDROcodone; Translations: [hydrocodone] Drug Allergy 01-13-20 Unknown [facility] (1 source) natural latex rubber Drug allergy (disorder) [facility] Repository (19 sources) Rosuvastatin calcium Allergy to substance 01-13-20 Unknown [facility] (19 sources) Other Allergy to substance 01-13-20 Rash [facility] (18 sources) atorvastatin Drug Allergy 08-16-19 [facility] (1 source) ARIPiprazole Drug Allergy 03-11-20 Contraindication -Medical Surgical [facility] (1 source) Haloperidol Drug Allergy 03-11-20 Contraindication -Medical Surgical [facility] (1 source) Metoclopramide Drug Allergy 03-11-20 Contraindication -Medical Surgical [facility] (1 source) Prochlorperazine Drug Allergy 03-11-20 Contraindication -Medical Surgical [facility] (1 source) Promethazine Drug Allergy 03-11-20 Contraindication -Medical Surgical [facility] (1 source) atorvastatin Drug Allergy 03-04-20 [facility] Repository (1 source) buPROPion Drug Allergy 03-04-20 [facility] (1 source) Latex Drug allergy (disorder) 03-04-20 [facility] Repository Medications Current Medications Medication Drug Class(es) Dates Sig (Normalized) Sig (Original) acetaminophen 500 mg oral tablet (20 sources) Start: 11-11-2021 End: 09-14-2022 take 1000 mg by mouth three times daily Acetaminophen Active 1000 MG PO Three times daily 180 November 23, 2021 11:00pm Start: 11-11-2021 take [...] 03, 2021 11:00pm November 11, 2021 11:27am End: 03-06-2024 take 1 tablet by mouth every eight hours as needed acetaminophen (TYLENOL) 500 mg tablet Take 500 mg by mouth every 8 hours as needed. 01/18/2023: Pt takes 2 tabs daily per [facility] med list 03/06/2024 Discontinued take 1 tablet by rc th every six hours as needed Acetaminophen 500 MG 1 tablet as needed Orally every 6 hrs Active Comment on above: Take 500 mg by mouth every 8 hours as needed. 01/18/2023: Pt takes 2 tabs daily per [facility] med list Aspir-81 (16 sources) Aspir-81 Active aspirin 81 mg delayed release oral tablet (20 sources) Platelet Aggregation Inhibitor, Nonsteroidal Anti-inflammatory Drug Start: 01-18-2017 End: 11-17-2023 aspirin, enteric coated (ASPIRIN, ENTERIC COATED) 81 mg EC tablet Take 81 mg by mouth. 11/17/2023 Active Comment on above: Take 81 mg by mouth once daily. 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 Prescriber to vijay area. Once applied, remove after 30 minutes and clean area with supplied gel. 1 patch 3 05/30/2023 Active carbidopa 25 mg / levodopa 100 mg oral tablet (20 sources) Aromatic Amino Acid Decarboxylation Inhibitor, Aromatic Amino Acid Start: 01-17-20 take 1.5 tablets by mouth in the morning, then take 1 tablet by mouth three times daily carbidopa-levodopa (Sinemet) 25-100 MG tablet Indications: Parkinson's disease without dyskinesia or fluctuating manifestations (CMS/HCC) Take 1.5 tablets by mouth in the morning. Then 1 tablet TID. 135 tablet 3 01/17/2024 Active Start: 04-13-2022 End: 11-17-2023 take 1.5 tablets by mouth in the morning, then take 1 tablet by mouth three times daily carbidopa-levodopa (Sinemet) 25-100 MG tablet Indications: Parkinson's disease without dyskinesia or fluctuating manifestations (CMS/HCC) Take 1.5 tablets by mouth in the morning. Then 1 tablet TID. 135 tablet 3 11/17/2023 Active Start: 11-04-2021 End: 02-11-2024 take 1.5 tablets by mouth three times daily carbidopa-levodopa (SINEMET 25-100) 25-100 mg per tablet Indications: Parkinson's disease (HCC) Take 1.5 tablets by mouth three times a day. 405 tablet 3 02/11/2023 Active Start: 11-04-2021 take 1.5 tablets by [...] unit tab Take by mouth once daily. Active cholecalciferol (Vitamin D-3) 50 MCG (2000 UT) capsule 1 capsule 1 (one) time each day at the same time. Active take 1 capsule by mo uth once daily Cholecalciferol 125 MCG (5000 UT) 1 capsule Orally Once a day Active Cholecalciferol, Vitamin D3, 1,000 unit cap Take by mouth once daily. 0 Active Comment on above: Take by mouth once d aily. clotrimazole 10 mg/ml topical cream (17 sources) Azole Antifungal Start: 11-15-2023 End: 03-16-2024 clotrimazole (Lotrimin) 1 % cream Indications: Vaginal yeast infection Apply topically 2 (two) times a day Apply to vagina at bedtime for 10 days 15 g 1 11/17/2023 03/16/2024 Active Continuous Blood Gluc Sensor (FreeStyle Vivian 2 Sensor) [facility] sources[place] Start: 02-14-2023 Continuous Blood Gluc Sensor (FreeStyle Vivian 2 Sensor) [facility] [place]ications: Type 2 diabetes mellitus with other specified complication, unspecified whether skilled nursing insulin use (CMS/[facility]) apply 1 SENSOR to back OF UPPER ARM REMOVE AND REPLACE every 14 days 6 each 3 02/14/2023 Active Continuous Glucose Sensor (FreeStyle Vivian 2 Sensor) [facility] [place]12 sources) Start: 11-22-2023 Continuous Glucose Sensor (FreeStyle Vivian 2 Sensor) [facility] [place] Indications: Type 2 diabetes mellitus with other specified complication, 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 estradiol 0.1 mg/ml vaginal cream (20 sources) Estrogen Start: 12-20-2022 End: 11-16-2024 estradiol (Estrace) 0.1 MG/GM vaginal cream Indications: Genitourinary syndrome of menopause Apply to vagina 3x/week x 1month then 2x/week x 1 month then once weekly 42.5 g 3 11/17/2023 11/16/2024 Active estradiol (ESTRA CE) 0.01 % (0.1 mg/gram) vaginal cream Use vaginally one time a week. Active Comment on above: Use vaginally one ti me a week. fluconazole 150 mg oral tablet (2 sources) Azole Antifungal Start: 11-23-19 End: 11-23-19 take 1 tablet by mouth once fluconazole (Diflucan) 150 MG tablet Indications: Vaginal yeast infection Take 1 tablet (150 mg) by mouth 1 (one) time for 1 dose 2 tablet 11/23/2023 11/23/2023 Active fluocinolone acetonide 0.1 mg/ml topical oil (20 sources) Corticosteroid Start: 10-06-19 Fluocinolone Acetonide Scalp 0.01 % oil Indications: Other seborrheic dermatitis Apply to scalp at bedtime as needed for rough, scaly area 118.28 mL 10/06/2023 Active Start: 10-07-2022 Fluocinolone A cetonide Scalp 0.01 % oil Indications: Other seborrheic dermatitis Apply to scalp at bedtime as needed for rough, scaly area 118.28 mL 10/07/2022 Active Fluocinolone-Elissa wer Cap 0.01 % oil by scalp route. Active Comment on above: by scalp route. fluocinonide 0.5 mg/ml topical solution (19 sources) Corticosteroid Start: 10-06-2023 fluocinonide (Lidex) 0.05 % external solution Indications: Other seborrheic dermatitis Apply to affected areas on the scalp every day prn flares 60 mL 10/06/2023 Active Start: 10-07-2022 fluocinonide ( Lidex) 0.05 % external solution Indications: Other seborrheic dermatitis Apply to affected areas on the scalp every day prn flares 60 mL 10/07/2022 Active FREESTYLE VIVIAN 2 SENSOR kit (11 sources) Start: 01-25-2022 FREESTYLE LIBR E 2 SENSOR kit apply 1 SENSOR to back OF UPPER ARM REMOVE AND REPLACE every 14 days 01/25/2022 Active Start: 01-25-2022 FREESTYLE LIBR E 2 SENSOR kit apply 1 SENSOR to back OF UPPER ARM REMOVE AND REPLACE every 14 days 0 01/25/2022 Active Comment on above: apply 1 SENSOR to ba ck OF UPPER ARM REMOVE AND REPLACE every 14 days ketoconazole 20 mg/ml medicated shampoo (20 sources) Azole Antifungal Start: 10-06-2023 ketoconazole (NIZOral) 2 % shampoo Indications: Other seborrheic dermatitis Lather on scalp 2-3 x weekly, leave on 5 min before rinsing 120 mL 11 10/06/2023 Active Start: 10-07-2022 ketoconazole ( NIZOral) 2 % shampoo Indications: Other seborrheic dermatitis Lather on scalp 2-3 x weekly, leave on 5 min before rinsing 120 mL 10/07/2022 Active End: 02-15-2022 ketoconazole (NIZORAL) 2 % s hampoo Apply to affected area two times a week. Active Comment on above: Apply 1 application to affected area as directed. Apply to affected ar ea two times a week. levothyroxine sodium 0.075 mg oral tablet (20 sources) l-Thyroxine Start: 01-18-2017 End: 11-17-2023 levothyroxine (SYNTHROID) 75 mcg tablet once daily. 12/29/2017 Active Synthroid 75 MCG 1 tablet every morning on an empty stomach Orally Once a day for 30 day(s) Active Comment on above: once daily. lidocaine 0.04 mg/mg medicated patch (17 sources) Antiarrhythmic, Amide Local Anesthetic Start: 11-11-2021 [...] 09, 2021 11:00pm November 11, 2021 12:51pm lidocaine HCL 4 % ptmd Apply to affected area once daily. Active metFORMIN hydrochloride 500 mg oral tablet (20 sources) Biguanide Start: 02-12-2022 End: 11-17-2023 take 1 tablet by mouth once daily metFORMIN (GLUCOPHAGE) 500 mg tablet Take 1 tablet by mouth once daily. 02/12/2022 Active Start: 01-18-2017 take 50 mg [...] day Active take 2 tablets by mo [facility] every twelve hours metFORMIN HCl 500 MG 2 tablets Orally Twice a day Active Comment on above: Take 500 mg by mouth twice daily with meals. Pt takes 2,000 mg daily Take 1 tablet by rc th once daily. metoprolol tartrate 50 mg oral tablet (20 sources) beta-Adrenergic Migdalia Start: 09-21-2023 End: 11-17-2023 metoprolol tartrate (Lopressor) 50 MG tablet Indications: Hypertension, unspecified type (CMS/HCC) Take 1.5 tablets (75 mg) by mouth every 12 (twelve) hours 270 tablet 3 11/17/2023 Active Start: 03-21-2023 metoprolol tar trate (Lopressor) 50 MG tablet Indications: Hypertension, unspecified type (CMS/HCC) Take 1.5 tablets (75 mg) by mouth every 12 (twelve) hours 135 tablet 3 03/21/2023 Active Start: 01-13-2022 take 1 tablet by rc th twice daily at mealtime metoprolol tartrate, short acting, (LOPRESSOR) 50 mg tablet TAKE 1 & 1/2 (ONE & ONE-HALF) TABLETS BY MOUTH TWICE DAILY WITH FOOD 01/13/2022 Active Start: 11-24-2021 take 75 mg [...] Take 25 mg by mouth twice daily. Active take 1 tablet by rc th every twenty-four hours metoprolol succinate XL (Toprol-XL) 25 MG 24 hr tablet Take by mouth Do not crush or chew. 0 Active take 2 tablets by mo [facility] every twelve hours Metoprolol Tartrate [...] twice daily. mirtazapine 7.5 mg oral tablet (20 sources) Start: 01-25-2022 End: 11-17-2023 take 1 tablet by mouth once daily at bedtime Mirtazapine (REMERON) 7.5 mg tablet Take 7.5 mg by mouth daily at bedtime. 01/25/2022 Active Start: 11-10-2021 End: 11-25-2021 take [...] 7.5 mg by mouth daily at bedtime. MOUNJARO 7.5 mg/0.5 mL pen injector (1 source) Start: 02-21-2024 MOUNJARO 7.5 mg/0.5 mL pen injector Inject 7.5 mg subcutaneously. 02/21/2024 Active Multiple Vitamins-Minerals (PRESERVISION AREDS 2 PO) (19 sources) Multiple Vitamins-Minerals (PRESERVISION AREDS 2 PO) Take by mouth 2 (two) times a day. Active Multiple Vitamin s-Minerals (PRESERVISION AREDS 2 PO) Take by mouth 2 (two) times a day. 0 Active omeprazole 20 mg delayed release oral capsule (20 sources) Proton Pump Inhibitor Start: 02-08-2018 omeprazo le (PRILOSEC) 20 mg capsule 20 mg once daily. 02/08/2018 Active Start: 01-18-2017 take 40 mg [...] Active 5 MG PO Every 6 hours November 10, 2021 Start: 11-10-2021 take 5 mg by mouth e very six hours Oxycodone Active 5 MG PO Every 6 hours 0 November 10, 2021 Start: 10-19-2021 End: 11-04-2021 take 1 tablet by mouth three times daily Oxycodone (Roxicodone) 5 mg tablet Discontinued 5 MG PO Three times daily 7 October 19, 2021 November 04, 2021 5:03pm polyethylene glycol 3350 39853 mg powder for oral solution (20 sources) Osmotic Laxative Start: 11-10-2021 End: 11-25-2021 [...] Packet Active 17 GM PO Twice daily November 10, 2021 12:00am End: 02-15-2022 polyethylene glycol 3350 17 gram packet Take 17 g by mouth once daily. Dissolve dose in 4 - 8 ounces of liquid and take as directed. Active Comment on above: Take 17 g [...] sources) PreserVision/Lut ein as directed Orally Active Tirzepatide (Mounjaro) 2.5 MG/0.5ML solution pen-injector (10 sources) Start: 11-17-2023 inject 2.5 mg by subcutaneous injection every week Tirzepatide (Mounjaro) 2.5 MG/0.5ML solution pen-injector Indications: Type 2 diabetes mellitus with other specified complication, unspecified whether skilled nursing insulin use (CMS/HCC) Inject 2.5 mg under the skin 1 (one) time per week 2 mL 3 11/17/2023 Active Start: 11-15-2023 End: 11-17-2023 inject 2.5 mg by subcutaneous injection every week Tirzepatide (Mounjaro) 2.5 MG/0.5ML solution pen-injector Indications: Type 2 diabetes mellitus with other specified complication, 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 (CMS/HCC) Inject 2.5 mg under the skin 1 (one) time per week 2 mL 11/15/2023 11/17/2023 Discontinued (Reorder) Start: 11-15-2023 inject 2.5 mg by sub cutaneous injection every week Tirzepatide (Mounjaro) 2.5 MG/0.5ML solution pen-injector Indications: Type 2 diabetes mellitus with other specified complication, 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 (CMS/HCC) Inject 2.5 mg under the skin 1 (one) time per week 2 mL 11/15/2023 Active Tirzepatide (Mounjaro) 7.5 MG/0.5ML solution auto-injector (5 sources) Start: 02-21-2024 inject 7.5 mg by subcutaneous injection every week Tirzepatide (Mounjaro) 7.5 MG/0.5ML solution auto-injector Indications: Type 2 diabetes mellitus with other specified complication, without long-term current use of insulin (CMS/HCC) Inject 7.5 mg under the skin 1 (one) time per week 6 mL 3 02/21/2024 Active triamcinolone acetonide 0.005 mg/mg topical ointment (12 sources) Corticosteroid Start: 11-23-2023 End: 11-22-2024 triamcinolone (Kenalog) 0.5 % ointment Indications: Atrophic vaginitis Apply topically 2 (two) times a day Use Goodrx coupon Use bid for 2 weeks to vagina 15 g 1 11/23/2023 11/22/2024 Active 24 hr venlafaxine 150 mg extended release oral capsule (20 sources) Serotonin and Norepinephrine Reuptake Inhibitor Start: 05-01-2023 take 1 capsule by mouth once daily in the morning venlafaxine ER (EFFEXOR XR) 150 mg 24 hr capsule Take 150 mg by mouth every morning. 05/01/2023 Active Start: 02-15-2023 End: 11-17-2023 take 1 capsule by mouth every twenty-four hours in the morning venlafaxine XR (Effexor XR) 150 MG 24 hr capsule Indications: Recurrent major depression in full remission (CMS/HCC) Take 1 capsule (150 mg) by mouth in the morning. 90 capsule 3 11/17/2023 Active Start: 01-10-2023 End: 11-17-2023 venlafaxine (EFFEXOR) 75 mg tablet 01/10/2023 Active Start: 01-10-2023 End: 06-23-2023 VENLAFAXINE ER [...] Take 150 mg by mouth every morning. vit C/vit E ac/lut/copper/zinc (PRESERVISION LUTEIN ORAL) (14 sources) vit C/vit E ac/lut/copper/zinc (PRESERVISION LUTEIN ORAL) Take by mouth twice daily. Active vit C/vit E ac/l ut/copper/zinc (PRESERVISION LUTEIN ORAL) Take by mouth twice daily. 0 Active Comment on above: Take by mouth twice daily. vitamin b12 0.5 mg oral tablet (20 sources) Vitamin B12 Start: 02-15-2022 take 2 tablets by mouth once daily cyanocobalamin (VITAMIN B-12) 500 mcg tablet Take 2 tablets by mouth once daily. 02/15/2022 Active Start: 11-24-2021 take 1000 ug [...] once daily. Take 2 tablets by mo [facility] once daily. Vitamin B12 1000 MCG (5 sources) take [...] Orally Once a day Active warfarin sodium 3 mg oral tablet (20 sources) Vitamin K Antagonist Start: 01-25-2024 End: 01-24-2025 warfarin (Coumadin) 3 MG tablet Indications: History of DVT (deep vein thrombosis) Take as directed per weekly INR report 90 tablet 3 01/25/2024 01/24/2025 Active Start: 09-21-2023 End: 11-17-2023 take 1 tablet by mouth once daily warfarin (Coumadin) 2 MG tablet Indications: History of DVT (deep vein thrombosis) take 1 tablet by mouth once daily EXCEPT TUESDAY (ON TUESDAY TAKE WARFARIN 4MG) 90 tablet 3 11/17/2023 Active Start: 02-11-2023 warfarin (Coum angelika) 2 MG tablet Indications: History of DVT (deep vein thrombosis) Daily except (on take Warfarin 4mg) 90 tablet 1 02/11/2023 Active Start: 02-11-2023 End: 11-17-2023 warfarin (Coumadin) 4 MG tab let Indications: History of DVT (deep vein thrombosis) Take every . Pt takes Warfarin 2mg daily except 13 tablet 1 02/11/2023 11/17/2023 Discontinued (Reorder) Start: 06-15-2022 warfarin (COUM ANGELIKA) 4 mg tablet 06/15/2022 Active Start: 11-11-2021 End: 11-25-2021 take 1 tablet [...] 1 tablet by mouth once Wa rfarin (Martoven) 1 mg Tablet Active 1 MG PO [...] Class(es) Dates Sig (Normalized) Sig (Original) acetaminophen 325 mg / oxyCODONE hydrochloride 5 mg oral tablet (1 source) Opioid Agonist End: 03-06-2024 oxyCODONE-acetamino phen (PERCOCET) 5-325 mg tablet Take by mouth every 4 hours as needed for pain. 1/2 tablet q 4h as needed 03/06/2024 Discontinued ascorbic acid 226 mg / cuprous oxide 0.8 mg / dl-alpha tocopheryl acetate 200 unt / lutein 5 mg / zinc oxide 34.8 mg oral capsule (8 sources) Vitamin C Start: 02-22-2017 End: 07-10-2017 Vit Q-F-Yrkcbi-Zinc-Lut ein (Preservision Lutein) 226 mg-200 unit -5 mg-0.8 mg Capsule Discontinued 1 TAB PO As Directed February 22, 2017 12:00am July 10, 2017 5:45pm take 2 capsules by m outh every twenty-four hours PreserVision/Lutein - 2 capsules Orally daily Active biotin 1 mg chewable tablet (20 sources) Start: 01-18-2017 End: 11-04-2021 take 1000 ug by mouth once daily Biotin Discontinued 1000 MCG PO Daily January 18, 2017 12:00am November 04, 2021 4:59pm End: 09-29-2021 take 1 capsule by mouth in the morning biotin 5 MG capsule Take 5 mg by mouth in the morning. Active take 1 tablet by mouth once [...] 2021 12:00am cephalexin 500 mg oral capsule (10 sources) Cephalosporin Antibacterial Start: 09-28-2021 End: 11-04-2021 take 500 mg by mouth every eight hours Cephalexin Discontinued 500 MG PO Q8H 01 10September 27, 2021 11:00pm November 04, 2021 5:00pm take 1 tablet by rc th three times daily Cephalexin 500 mg tab Take 500 mg by mouth three times a day. Active End: 02-15-2022 cephALEXin (KEFLEX) 500 mg c [...] hours docusate sodium 50 mg / sennosides, long term 8.6 mg oral tablet (5 sources) Start: 11-10-2021 End: 11-25-2021 take 2 tablets by mouth twice daily Sennosides-Docusate Sodium (Stool Softener-Stimulant Laxat) 8.6-50 mg Tablet Discontinued 2 TAB PO Twice daily 0 November 09, 2021 11:00pm November 25, 2021 3:31pm Start: 11-10-2021 take 2 tablets by [facility] twice daily Sennosides-Docusate Sodium (Stool Softener-Stimulant Laxat) 8.6-50 mg Tablet Active 2 TAB PO Twice daily 0 November 10, 2021 12:00am Start: 11-10-2021 take 2 tablets by [facility] twice daily Sennosides-Docusate Sodium (Stool Softener-Stimulant Laxat) 8.6-50 mg Tablet Active 2 TAB PO Twice daily 0 November 10, 2021 12:00am ezetimibe 10 mg oral tablet (20 sources) Dietary Cholesterol Absorption Inhibitor Start: 02-22-2017 End: 07-10-2017 take 1 tablet by mouth once daily Ezetimibe (Zetia) 10 mg Tablet Discontinued 10 MG PO Daily February 22, 2017 12:00am July 10, 2017 5:44pm furosemide 20 mg oral tablet (20 sources) Loop Diuretic Start: 03-01-2019 End: 02-15-2022 take 1 tablet by mouth once daily furosemide (LASIX) 20 mg tablet Take 1 tablet by mouth once daily. 0 03/01/2019 02/15/2022 Discontinued (Discontinued by another Health Care Provider) Furosemide Activ e Comment on above: Take [address] [facility] once daily. gabapentin 300 mg oral capsule (7 sources) Anti-epileptic Agent Start: 01-26-2022 End: 01-20-2023 take 1 capsule by mouth once daily at bedtime gabapentin (NEURONTIN) 300 mg capsule Take 300 mg by mouth daily at bedtime. 0 01/26/2022 01/20/2023 Discontinued (Course of therapy completed) take 1 capsule by [facility] every twenty-four hours Gabapentin 300 MG 1 capsule Orally Once a day Active Comment on above: Take 300 mg by mouth daily at bedtime. Lactobacillus acidophilus (4 sources) End: 02-15-2022 Lactobacillus acidophilus (PROBIOTIC ORAL) Take by mouth. 0 02/15/2022 Discontinued (Course of therapy completed) Lactobacillus ac idophilus (PROBIOTIC ORAL) Take by mouth. 0 Active Comment on above: Take by mouth. MEDICATION, NON-DATABASE (7 sources) End: 03-06-2024 MEDICATION, NON-DATABASE 750 mg two times a day. Antiacid extra strength 03/06/2024 Discontinued MEDICATION, NON- DATABASE 750 mg two times a day. Antiacid extra strength Active MEDICATION, NON- DATABASE 750 mg two times a day. Antiacid extra strength 0 Active Comment on above: 750 mg two times a d ay. Antiacid extra strength MOUNJARO 5 mg/0.5 mL pen injector (1 source) Start: 01-18-20 End: 03-06-20 inject 5 mg by subcutaneous injection every week MOUNJARO 5 mg/0.5 mL pen injector INJECT 5MG SUBCUTANEOUSLY ONCE A WEEK 01/18/2024 03/06/2024 Discontinued Nystatin (4 sources) Polyene Antifungal End: 02-16-20 NYSTATIN ORAL Take by mouth. 0 02/15/2022 [...] sources) Dipeptidyl Peptidase 4 Inhibitor Start: 05-02-2023 End: 03-06-2024 take 1 tablet by mouth once daily in the morning JANUVIA 50 mg tablet Take 50 mg by mouth every morning. 05/02/2023 03/06/2024 Discontinued Start: 01-20-2023 End: 11-15-2023 take 0.5 tablet by mouth in the morning Januvia 100 MG tablet Indications: Diabetic peripheral neuropathy associated with type 2 diabetes mellitus (CMS/HCC) Take 0.5 tablets (50 mg) by mouth in the morning. Take 50 mg by mouth in the morning.. 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 (CMS/HCC) Inject 5 mg under the skin 1 (one) time per week 2 mL 01/18/2024 02/21/2024 Discontinued Start: 01-18-2024 inject 5 mg by subcu taneous injection every week Tirzepatide (Mounjaro) 5 MG/0.5ML solution auto-injector Indications: Type 2 diabetes mellitus with other specified complication, unspecified whether skilled nursing insulin use (CMS/HCC) Inject 5 mg under the skin 1 (one) time per week 2 mL 01/18/2024 Active trospium chloride 20 mg oral tablet (6 sources) Cholinergic Muscarinic Antagonist Start: 07-10-2017 End: 11-04-2021 take 20 mg by mouth twice daily Trospium Discontinued 20 MG PO Twice daily July 09, 2017 11:00pm November 04, 2021 5:12pm Vit C,X-Jb-Ptrps-Lut ein-Zeaxan (Preservision Areds-2) 229-543-59-1 vn-unqg-mk-mg Capsule (6 sources) Start: 01-18-2017 End: 07-10-2017 take 1 tablet by mouth once daily at bedtime Vit C,E-Pq-Dwmpa-Lutein -Zeaxan (Preservision Areds-2) 222-476-66-1 tq-wzhx-lc-mg Capsule Discontinued 1 TAB PO every day in the morning and at bedtime January 18, 2017 7:43am July 10, 2017 6:45pm Start: 01-18-2017 End: 07-10-2017 take 1 tablet by mouth once daily at bedtime Vit C,H-Wj-Yariy-Lutein-Zeaxan (Preservision Areds-2) 901-308-02-1 ra-bsrd-vy-mg Capsule Discontinued 1 TAB PO every day in the morning and at bedtime January 18, 2017 12:00am July 10, 2017 5:45pm Start: 01-18-2017 End: 07-10-2017 take 1 tablet by mouth once daily at bedtime Vit C,L-Wh-Pxccv-Lutein-Zeaxan (Preservision Areds-2) 080-388-58-1 hj-jgpw-rn-mg Capsule Discontinued 1 TAB PO every day in the morning and at bedtime January 18, 2017 1:00am July 10, 2017 6:45pm Vit C,C-Wl-Darke-Lutein-Zeax an (Preservision Areds-2) 250-90-40-1 mg Capsule (5 sources) Start: 11-04-2021 End: 11-25-2021 Vit C,W-Uz-Fqozr-Lutein-Zeax an (Preservision Areds-2) 250-90-40-1 mg Capsule Discontinued 1 TAB PO Twice daily November 03, 2021 11:00pm November 25, 2021 3:32pm Start: 11-04-2021 End: 11-25-2021 Vit C,W-Vr-Nxlmi-Lutein-Zeax an (Preservision Areds-2) 250-90-40-1 mg Capsule Discontinued 1 TAB PO Twice daily November 04, 2021 12:00am November 25, 2021 4:32pm Start: 11-04-2021 Vit C,E-Zn-Rag Boiler op-Tjbkya-Kbpcdx (Preservision Areds-2) 250-90-40-1 mg Capsule Active 1 TAB PO Twice daily November 04, 2021 12:00am Warfarin - Pharmacy Dosing (Coumadin Pharmacy Dosing) [...] pain; Translations: [Unspecified abdominal pain] 11-09-2021 Episodic Acquired foot deformities (1 source) Hammer toe; Translations: [Other hammer toe(s) (acquired), right foot] 11-18-2023 Chronic Administrative/social admission (19 sources) Worried well; Translations: [Person with feared health complaint in whom no diagnosis is made] 11-05-2021 Episodic Anxiety disorders (20 sources) Mixed anxiety and depressive disorder; Translations: [Other specified anxiety disorders] Onset: 06-02-2020 Chronic Coronary atherosclerosis and other heart disease (19 sources) Coronary atherosclerosis; Translations: [Atherosclerotic heart disease of ute coronary artery without angina pectoris] Onset: 12-20-2022 12-20-2022 Chronic Deficiency and other anemia (3 sources) Anemia; Translations: [Anemia, unspecified] 11-19-2021 Episodic Deficiency and other anemia (2 sources) Anemia, unspecified; Translations: [Anemia, unspecified] 11-25-2021 Episodic Diabetes mellitus with complications (20 sources) Neuropathy due to diabetes mellitus; Translations: [Type 2 diabetes mellitus with diabetic neuropathy, unspecified] Onset: 09-29-2020 12-20-2022 Chronic Diabetes mellitus without complication (11 sources) Diabetes mellitus; Translations: [Type 2 diabetes mellitus without complications] 11-09-2021 Chronic Diseases of mouth; excluding dental (1 source) Excessive salivation; Translations: [Disturbances of salivary secretion] 06-23-2023 Episodic Disorders of lipid metabolism (20 sources) Hyperlipidemia; Translations: [Hyperlipidemia, unspecified] Onset: 12-17-2014 11-09-2021 Chronic E Codes: Fall (5 sources) Fall; Translations: [Unspecified fall, initial encounter] 11-12-2021 Episodic Esophageal disorders (20 sources) Esophageal dysmotility; Translations: [Dyskinesia of esophagus] Onset: 02-01-2017 11-09-2021 Chronic Essential hypertension (9 sources) Hypertensive disorder; Translations: [Essential (primary) hypertension] 11-09-2021 Chronic Genitourinary symptoms and ill-defined conditions (19 sources) Urge incontinence of urine; Translations: [Urge incontinence] Onset: 09-06-2017 12-20-2022 Chronic Genitourinary symptoms and ill-defined conditions (4 sources) Frequency of micturition; Translations: [FREQUENCY OF MICTURITION] Onset: 06-01-2022 Episodic Headache; including migraine (19 sources) Episodic paroxysmal hemicrania; Translations: [Episodic paroxysmal hemicrania, not intractable] Onset: 12-20-2022 12-20-2022 Chronic Hemorrhoids (20 sources) Hemorrhoids; Translations: [Unspecified hemorrhoids] Episodic Immunity disorders (2 sources) Secondary immune deficiency disorder; Translations: [Immunodeficiency due to conditions classified elsewhere (CMS/[facility])] 02-21-2024 Chronic Malaise and fatigue (1 source) Fatigue; Translations: [Other fatigue] Episodic Menopausal disorders (20 sources) Atrophic vaginitis; Translations: [Postmenopausal atrophic vaginitis] Onset: 12-20-2022 12-20-2022 Chronic Mood disorders (20 sources) Depressive disorder; Translations: [Depression] Onset: 12-20-2022 11-09-2021 Chronic Mycoses (7 sources) Onychomycosis; Translations: [Tinea unguium] 02-16-2024 Episodic Nutritional deficiencies (20 sources) Vitamin D deficiency; Translations: [Vitamin D deficiency, unspecified] Onset: 12-16-2014 12-20-2022 Chronic Osteoarthritis (20 sources) Osteoarthritis; Translations: [Osteoarthrosis, unspecified whether generalized or localized, lower leg] Onset: 06-29-2012 06-29-2012 Chronic Osteoporosis (19 sources) Osteoporosis; Translations: [Age-related osteoporosis without current pathological fracture] Onset: 12-20-2022 12-20-2022 Chronic Other aftercare (13 sources) Encounter for therapeutic drug level monitoring; Translations: [Medication monitoring encounter Z51.81] Onset: 12-10-2020 Resolved: 12-01-2021 Episodic Other and unspecified benign neoplasm (19 sources) Benign neoplasm of cerebral meninges; Translations: [Benign neoplasm of cerebral meninges] Onset: 12-16-2014 12-20-2022 Chronic Other connective tissue disease (4 sources) Repeated falls; Translations: [History of fall] 11-11-2021 Episodic Other connective tissue disease (2 sources) Pain in both feet; Translations: [Pain in right foot] 02-16-2024 Episodic Other fractures (13 sources) Compression fracture ; Translations: [Compression fracture] 11-09-2021 Episodic Other gastrointestinal disorders (20 sources) Dysphagia; Translations: [Dysphagia, unspecified] 11-09-2021 Episodic Other gastrointestinal disorders (1 source) Dysphagia, unspecified; Translations: [Dysphagia] Episodic Other hereditary and degenerative nervous system conditions (19 sources) Impaired cognition; Translations: [Mild cognitive impairment, so stated] Onset: 04-26-2016 12-20-2022 Chronic Other injuries and conditions due to external causes (6 sources) Contusion; Translations: [Other injury of unspecified body region, initial encounter] 11-09-2021 Episodic Other injuries and conditions due to external causes (1 source) Injury of head; Translations: [Unspecified injury of head, initial encounter] 10-25-2023 Episodic Other lower respiratory disease (20 sources) Fibrosis of lung; Translations: [Pulmonary fibrosis, unspecified] Onset: 04-14-2023 04-14-2023 Chronic Other nervous system disorders (2 sources) Neuropathy; Translations: [Polyneuropathy, unspecified] 02-16-2024 Chronic Other nervous system disorders (1 source) Unresponsive ; Translations: [Other symptoms and signs involving cognitive functions and awareness] Episodic Other nutritional; endocrine; and metabolic disorders (20 sources) Body mass index 40+ - severely obese; Translations: [Body mass index (BMI) 40.0-44.9, adult] Chronic Other nutritional; endocrine; and metabolic disorders (8 sources) Obese class I; Translations: [Obesity, unspecified] Onset: 07-08-2022 07-08-2022 Chronic Other nutritional; endocrine; and metabolic disorders (20 sources) Morbid obesity; Translations: [Morbid (severe) obesity due to excess calories] Onset: 10-31-2017 12-20-2022 Chronic Parkinson`s disease (20 sources) Parkinson's disease; Translations: [Parkinson's disease] Onset: 11-01-2016 Chronic Parkinson`s disease (1 source) Parkinson`s disease; Translations: [Parkinson's disease without dyskinesia, with fluctuating manifestations (HCC)] Onset: 01-20-2023 Peripheral and visceral atherosclerosis (19 sources) Peripheral vascular disease; Translations: [Peripheral vascular disease, unspecified] Onset: 12-20-2014 12-20-2022 Chronic Residual codes; unclassified (1 source) Daytime somnolence; Translations: [Other hypersomnia] Chronic Residual codes; unclassified (4 sources) Obstructive sleep apnea (adult) (pediatric); Translations: [OBSTRUCTIVE SLEEP APNEA] Onset: 02-02-2022 Chronic Residual codes; unclassified (4 sources) Sleep apnea, unspecified; Translations: [SLEEP APNEA UNSPECIFIED] Onset: 12-29-2021 Chronic Residual codes; unclassified (19 sources) Sleep apnea; Translations: [Sleep apnea, unspecified] Onset: 05-21-2020 12-20-2022 Chronic Residual codes; unclassified (20 sources) Obstructive sleep apnea syndrome; Translations: [Obstructive sleep apnea (adult) (pediatric)] Onset: 08-16-2023 08-16-2023 Chronic Residual codes; unclassified (20 sources) Hypersomnia; Translations: [Hypersomnia, unspecified] Onset: 08-16-2023 08-16-2023 Chronic Residual codes; unclassified (4 sources) Altered mental status, unspecified; Translations: [ALTERED MENTAL STATUS UNSPECIFIED] Onset: 07-14-2022 Episodic Retinal detachments; defects; vascular occlusion; and retinopathy (19 sources) Age related macular degeneration; Translations: [Unspecified macular degeneration] Onset: 12-20-2022 12-20-2022 Chronic Spondylosis; intervertebral disc disorders; other back problems (18 sources) Backache; Translations: [Dorsalgia, unspecified] 11-04-2021 Episodic Thyroid disorders (20 sources) Hypothyroidism; Translations: [Hypothyroidism, unspecified] Onset: 12-16-2014 11-09-2021 Chronic Unclassified (1 source) NO SHOW 02-24-2024 Unclassified (1 source) Low back pain, unspecified; Translations: [Low back pain, unspecified] Onset: 03-04-2024 Unclassified (1 source) Other low back pain; Translations: [Other low back pain] Onset: 02-26-2024 Past or Other Problems Problem Classification Problem Date Documented Da te Episodic/Chronic Calculus of urinary tract (19 sources) History of calculus of kidney; Translations: [Personal history of urinary calculi] Onset: 12-25-2015 12-20-2022 Episodic Coagulation and hemorrhagic disorders (19 sources) Acquired coagulation factor inhibitor disorder; Translations: [Other hemorrhagic disorder due to intrinsic circulating anticoagulants, antibodies, or inhibitors] Onset: 09-29-2020 Resolved: 12-20-2022 12-20-2022 Chronic Immunizations and screening for infectious disease (20 sources) Needs influenza immunization; Translations: [Encounter for immunization] Onset: 12-20-2022 12-20-2022 Episodic Nutritional deficiencies (2 sources) Cobalamin deficiency; Translations: [Deficiency of other specified B group vitamins] 11-15-2023 Episodic Other aftercare (20 sources) Long-term current use of anticoagulant; Translations: [superintendent container terminal (current) use of anticoagulants] Onset: 11-01-2016 11-09-2021 Episodic Other aftercare (12 sources) superintendent container terminal (current) use of anticoagulants; Translations: [Long-term (current) use of anticoagulants] Onset: 12-21-2021 11-11-2021 Episodic Other aftercare (19 sources) Anticoagulant effect; Translations: [superintendent container terminal (current) use of anticoagulants] Onset: 12-20-2022 12-20-2022 Episodic Other connective tissue disease (20 sources) Recurrent falls ; Translations: [Repeated falls] Onset: 05-21-2020 Resolved: 12-20-2022 11-05-2021 Episodic Other diseases of veins and lymphatics (19 sources) Peripheral venous insufficiency; Translations: [Venous insufficiency (chronic) (peripheral)] Onset: 07-14-2017 12-20-2022 Episodic Other gastrointestinal disorders (19 sources) Esophageal dysphagia; Translations: [Other dysphagia] Onset: 11-01-2016 Resolved: 12-20-2022 12-20-2022 Episodic Other gastrointestinal disorders (19 sources) Incontinence of feces; Translations: [Full incontinence of feces] Onset: 06-19-2019 Resolved: 12-20-2022 12-20-2022 Episodic Other lower respiratory disease (20 sources) Snoring; Translations: [Snoring] Onset: 08-16-2023 08-16-2023 Episodic Phlebitis; thrombophlebitis and thromboembolism (20 sources) Acute embolism and thrombosis of unspecified deep veins of unspecified lower extremity; Translations: [H/O: Deep vein thrombosis] Onset: 01-29-2015 12-20-2022 Episodic Residual codes; unclassified (20 sources) Inadequate sleep hygiene; Translations: [Inadequate sleep hygiene] Onset: 08-16-2023 08-16-2023 Episodic Residual codes; unclassified (11 sources) Amnesia; Translations: [Other amnesia] Onset: 12-05-2023 12-05-2023 Episodic Urinary tract infections (20 sources) Urinary tract infectious disease; Translations: [Urinary tract infection, site not specified] Onset: 12-20-2022 09-28-2021 Episodic Results Test Name Value Interpretation Reference Range [facility] spine wo [facility] [place] [address] CT Scan Report Signed Patient: Alton Barker MR#: [id number] 987 : 1940 Acct:[id number] Age/Sex: 83 / F ADM Date: 03/04/24 Loc: ER Room: Type: [facility] ER Attending Dr: Copies to: Lillian Hutton MD Ordering Provider: Lillian Hutton MD Date of Service: 03/04/24 CT/CT head/brain wo con: nkjhb ([id number]) CT/CT cervical spine wo con: nkjhb CT head/brain wo con, CT cervical spine wo con 03/04/2024 7:25 PM SIGNS AND SYMPTOMS: Recent falls, patient on Coumadin TECHNIQUE:Multi-detector CT axial slices of the brain and cervical spine were obtained without IV contrast. Helical,sagittal, coronal, and 3-D reconstructions of the cervical spine were performed. CT was performed with one or more of the following dose reduction techniques: Automated exposure control, adjustment of the mA and/or kV according to patient size, or use of iterative reconstruction technique. COMPARISON: 11/04/2021 FINDINGS: Noncontrast head CT: There is no shift of the midline structures, acute intracranial bleeding, mass effects, or evidence of acute ischemia. Atherosclerotic changes are noted in the V4 segments of the vertebral arteries and intracranial segments of the internal carotid arteries. There is age-related cortical atrophy. There is periventricular white matter hypoattenuation. The ventricular system is normal in size. The brainstem and the cerebellum are unremarkable. The visualized intraorbital contents, the visualized paranasal sinuses, and the infratemporal soft tissues show no acute abnormality. The osseous structures in the skull base and the calvarium show no abnormality. Cervical spine: There is preservation of the vertebral body heights and intervertebral discs. Mild facet degenerative changes are present bilaterally. No fractures or dislocations are seen. The alignment of the cervical spine is normal. The craniocervical junction is within normal limits. Mild degenerative changes are noted in the atlantoaxial joint. The prevertebral soft tissues are within normal limits. The paraspinous soft tissues are within normal limits. The lung apices are unremarkable. Atherosclerotic changes are noted in the carotid bifurcations. CT/CT head/brain wo con IMPRESSION: No acute intracranial pathology. Chronic age-related neurodegenerative changes are present as above. No acute cervical spine injury. Degenerative changes are noted in the cervical spine as above. Impression dictated by: Vijay Holden M.D.03/05/2024 9:13 AM Dictation Location: [place] [address] Transcribed By: [facility] 03/05/24912 Dictated By: Vijay Holden II, MD 03/05/2406 Signed By: 03/05/24912 Normal [facility] CT lumbar spine wo conon CT lumbar spine wo con [facility] [place] [address] [place] [address] CT Scan Report Signed Patient: Alton Barker MR#: [id number] 987 : 1940 Acct:[id number] Age/Sex: 83 / F ADM Date: 03/04/24 Loc: ER Room: Type: [facility] ER Attending Dr: Copies to: Lillian Hutton MD Ordering Provider: Lillian Hutton MD Date of Service: 03/04/24 CT/CT lumbar spine wo con: nkjhb CT lumbar spine wo con 03/04/2024 7:25 PM History:Multiple recent falls, patient on Coumadin TECHNIQUE: Multi detector CT axial slices of the lumbar spine were obtained without IV contrast. Volumetric acquisition sagittal, coronal, and 3-D reconstructions were performed and reviewed on a separate workstation. CT was performed with one or more of the following dose reduction techniques: Automated exposure control, adjustment of the mA and/or kV according to patient size, or use of iterative reconstruction technique. COMPARISON: 02/26/2024 FINDINGS: There is mild disc height loss with vacuum disc phenomena at T12-L1, L2-3, L3-L4, L4-5, and L5-S1. There is facet hypertrophy throughout. There is ossification of the supraspinous ligament with bridging syndesmophyte formation in the lower thoracic spine suggesting ankylosing spondylitis. There is an obliquely oriented fracture through the superior endplate and anterior wall of the T11 vertebral body which is only minimally displaced. This appears to be acute in nature. There is a remote compression deformity at L1 which is unchanged. Schmorl's node formation is noted in the superior endplate at L4 which is unchanged. Degenerative changes are noted sacroiliac joints. The alignment of the lumbar spine is normal. The paraspinous soft tissues are within normal limits. Groundglass attenuation is noted in the lung bases. This may represent sequelae of an infectious process. Atherosclerotic changes are noted in the coronary arteries and thoracic aorta. There is a nonobstructing stone in the left renal collecting system measuring 8 mm in greatest dimension with smaller stones are noted on the left. There is no hydronephrosis. Atherosclerotic changes are noted in the abdominal aorta and its branches. CT/CT lumbar spine wo con IMPRESSION: There is an obliquely oriented fracture through the superior endplate and anterior wall of the T11 vertebral body which is only minimally displaced. This appears to be acute in nature. 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 There is a remote compression deformity at L1 which is unchanged. There is retropulsion into the spinal canal similar to the prior ultrasound of the spinal canal contributing spinal canal narrowing similar to the prior exam. Groundglass attenuation is noted in the lung bases. This may represent sequelae of an infectious process. Additional chronic findings are noted as above. Impression dictated by: Vijay Holden M.D.03/05/2024 9:47 AM Dictation Location: [place] [address] Transcribed By: SHERINE 03/05/24946 Dictated By: Vijay Holden II, MD 03/05/24912 Signed By: 03/05/24946 Normal [facility] Basic Metabolic Panelon 02-12 Anion gap [Moles/Vol] 12.5 mmol/L Normal 6.0-15.0 [facility] Comment on above: Performed By: #### B MP, CBC #### [facility] [address] [place] [id number] [place] Calcium [Mass/Vol] 9.1 mg/dL Normal 8.6-10.3 [facility] Comment on above: Performed By: #### B MP, CBC #### [facility] [address] [place] [address] [place] Chloride [Moles/Vol] 104 mmol/L Normal 98-107 [facility] Comment on above: Performed By: #### B MP, CBC #### [facility] [address] [place] [address] [place] CO2 [Moles/Vol] 26.0 mmol/L Normal 21.0-31.0 [facility] Comment on above: Performed By: #### B MP, CBC #### [facility] [address] [place] [id number] [place] Creatinine [Mass/Vol] 0.84 mg/dL Normal 0.60-1.20 [facility] Comment on above: Performed By: #### B MP, CBC #### [address] Creatinine Clr Calc Pharmacy 62.88 Normal [facility] Comment on above: Result Comment: PERF ORMED BY: [place] [address] PATHOLOGIST [employer] NARDA CHEN M.D. Performed By: #### B MP, CBC #### [place] [address] [place] GFR/1.73 sq M.predicted MDRD (S/P/Bld) [Vol rate/Area] mL/min/{1.73_m2} Normal [facility] Comment on above: Performed By: #### B MP, CBC #### [address] Glucose [Mass/Vol] 166 mg/dL High 70-100 [facility] Comment on above: Result Comment: Corea Glucose Reference Range is dependent on time and content of last meal. Glucose of more than 200 mg/dL in a nonstressed, ambulatory subject supports the diagnosis of Diabetes Mellitus. ADA recommended reference range Performed By: #### B MP, CBC #### [address] Potassium [Moles/Vol] 4.5 mmol/L Normal 3.5-5.1 [facility] Comment on above: Performed By: #### B MP, CBC #### [place] [address] [place] Sodium [Moles/Vol] 138 mmol/L Normal 136-145 [facility] Comment on above: Performed By: #### B MP, CBC #### [place] [address] [place] Urea nitrogen [Mass/Vol] 14 mg/dL Normal 7-25 [facility] Comment on above: Performed By: #### B MP, CBC #### [place] [address] [place] Complete Blood Count Auto Di ffon 03-04-2024 Basophils (Bld) [#/Vol] 0.0 10*3/uL Normal 0.0-0.2 [facility] Comment on above: Result Comment: PERF ORMED BY: [place] [address] PATHOLOGIST CHRISTIAN SCIENCE HEALER NARDA CHEN M.D. Performed By: #### B MP, CBC #### [address] Basophils/100 WBC (Bld) 0.6 % Normal . [facility] Comment on above: Performed By: #### B MP, CBC #### [address] Eosinophils (Bld) [#/Vol] 0.2 10*3/uL Normal 0.0-0.45 [facility] Comment on above: Performed By: #### B MP, CBC #### [address] Eosinophils/100 WBC (Bld) 3.6 % Normal . [facility] Comment on above: Performed By: #### B MP, CBC #### [address] Erythrocyte distribution width (RBC) [Ratio] 17.1 % High 11.9-15.3 [facility] Comment on above: Performed By: #### B MP, CBC #### [address] Hematocrit (Bld) [Volume fraction] 36.0 % Normal 34.0-46.4 [facility] Comment on above: Performed By: #### B MP, CBC #### [address] Hemoglobin (Bld) [Mass/Vol] 11.7 g/dL Low 11.8-15.4 [facility] Comment on above: Performed By: #### B MP, CBC #### [address] Lymphocytes (Bld) [#/Vol] 1.5 10*3/uL Normal 1.00-4.8 [facility] Comment on above: Performed By: #### B MP, CBC #### [address] Lymphocytes/100 WBC (Bld) 22.1 % Normal . [facility] Comment on above: Performed By: #### B MP, CBC #### [address] MCH (RBC) [Entitic mass] 30.1 pg Normal 24.7-34.3 [facility] Comment on above: Performed By: #### B MP, CBC #### [address] MCV (RBC) [Entitic vol] 92.7 fL Normal 80-100 [facility] Comment on above: Performed By: #### B MP, CBC #### [address] Mean Corpuscular HGB Conc 32.4 g/dL Normal 32.0-35.0 [facility] Comment on above: Performed By: #### B MP, CBC #### [address] Monocytes (Bld) [#/Vol] 0.7 10*3/uL Normal 0.0-0.8 [facility] Comment on above: Performed By: #### B MP, CBC #### [address] Monocytes/100 WBC (Bld) 23.00 % High 0.00-20.00 [facility] Comment on above: Result Comment: For adults in ED, MDW > 20.0 may be associated with a higher risk of sepsis during the first 12 hrs of hospital admission Performed By: #### B MP, CBC #### [address] Monocytes/100 WBC (Bld) 9.6 % Normal . [facility] Comment on above: Performed By: #### B MP, CBC #### [address] Neutrophils (Bld) [#/Vol] 4.4 10*3/uL Normal 1.8-7.7 [facility] Comment on above: Performed By: #### B MP, CBC #### [address] Neutrophils/100 WBC (Bld) 64.1 % Normal . [facility] Comment on above: Performed By: #### B MP, CBC #### [facility] [address] NRBC% 0.1 /100{WBC} Normal 0-0.[address] [facility] Comment on above: Performed By: #### B MP, CBC #### [facility] [address] Platelet mean volume (Bld) [Entitic vol] 9.0 fL Normal 6.3-10.7 [facility] Comment on above: Performed By: #### B MP, CBC #### [place] [address] [place] Platelets (Bld) [#/Vol] 197 10*3/uL Normal 150-450 [facility] Comment on above: Performed By: #### B MP, CBC #### [address] RBC (Bld) [#/Vol] 3.88 10*6/uL Normal 3.60-5.00 [facility] Comment on above: Performed By: #### B MP, CBC #### [place] [address] [place] WBC (Bld) [#/Vol] 6.9 10*3/uL Normal 3.8-11.6 [facility] Comment on above: Performed By: #### B MP, CBC #### [place] [address] [place] Dipstick and Microscopicon 1 05-05-2023 Appearance (U) Slightly Cloudy Critically abnormal Clear [facility] Comment on above: Order Comment: Name Collection Type:: Straight Catheter Performed By: #### C UU, ADDONUAPLUS #### [place] [id number] [place] Bacteria,Urine 2+ High None Seen [facility] Comment on above: Order Comment: Name Collection Type:: Straight Catheter Performed By: #### C UU, ADDONUAPLUS #### [place] [address] [place] Bilirubin,Urine Negative Normal Negative [facility] Comment on above: Order Comment: Name Collection Type:: Straight Catheter Performed By: #### C UU, ADDONUAPLUS #### [address] Color (U) Light-Yellow Normal Yellow [facility] Comment on above: Order Comment: Name Collection Type:: Straight Catheter Performed By: #### C UU, ADDONUAPLUS #### [address] Glucose Ql (U) Normal Normal Normal [facility] Comment on above: Order Comment: Name Collection Type:: Straight Catheter Performed By: #### C UU, ADDONUAPLUS #### [place] [address] [place] Ketones Ql (U) Negative Normal Negative [facility] Comment on above: Order Comment: Name Collection Type:: Straight Catheter Performed By: #### C UU, ADDONUAPLUS #### [address] Leukocyte esterase Test strip Ql (U) 2+ High Negative [facility] Comment on above: Order Comment: Name Collection Type:: Straight Catheter Performed By: #### C UU, ADDONUAPLUS #### [place] [address] [place] Nitrite,Urine Positive High Negative The [facility] Comment on above: Order Comment: Name Collection Type:: Straight Catheter Performed By: #### C UU, ADDONUAPLUS #### [place] [address] [place] Occult Blood,Urine Trace High Negative [facility] Comment on above: Order Comment: Name Collection Type:: Straight Catheter Result Comment: PERF ORMED BY: [place] [address] PATHOLOGIST CHRISTIAN SCIENCE HEALER NARDA CHEN M.D. Performed By: #### C UU, ADDONUAPLUS #### [address] pH (U) 7.0 [pH] Normal 5.0-9.0 [facility] Comment on above: Order Comment: Name Collection Type:: Straight Catheter Performed By: #### C UU, ADDONUAPLUS #### [address] Protein,Urine Trace High Negative The [facility] Comment on above: Order Comment: Name Collection Type:: Straight Catheter Performed By: #### C UU, ADDONUAPLUS #### [address] RBC,Urine 0 [HPF] Normal 0-4 [facility] Comment on above: Order Comment: Name Collection Type:: Straight Catheter Performed By: #### C UU, ADDONUAPLUS #### [address] Specificy [place],Urine 1.010 Normal 1.001-1.03 0 [facility] Comment on above: Order Comment: Name Collection Type:: Straight Catheter Performed By: #### C UU, ADDONUAPLUS #### [address] Squamous Epithelial Cell,Urine None Seen Normal 0-2 [facility] Comment on above: Order Comment: Name Collection Type:: Straight Catheter Performed By: #### C UU, ADDONUAPLUS #### [address] Urine Comment Normal [facility] Comment on above: Order Comment: Name Collection Type:: Straight Catheter Result Comment: SPEC IMEN RECEIVED HAD ONLY 1 ML OF URINE. SPECIMEN NOT SPUN DOWN FOR MICROSCOPY. INTERPRET RESULTS WITH CAUTION. PERFORMED BY: [place] [address] PATHOLOGIST CHRISTIAN SCIENCE HEALER NARDA CEHN M.D. Performed By: #### C UU, ADDONUAPLUS #### [facility] [address] Urobilinogen,Urine Normal Normal Normal [facility] Comment on above: Order Comment: Name Collection Type:: Straight Catheter Performed By: #### C UU, ADDONUAPLUS #### [facility] [address] WBC,Urine 5 [HPF] High 0-4 [facility] Comment on above: Order Comment: Name Collection Type:: Straight Catheter Performed By: #### C UU, ADDONUAPLUS #### [facility] [address] ECG 12 lead ECGon 03-04-2024 ECG 12 lead ECG [facility] Main [place] [address] [place] [address] Electrocardiograph Report Signed Patient: Alton Barker MR#: [id number] : 1940 Acct:[id number] Age/Sex: 83 / F ADM Date: 03/04/24 Loc: ER Room: Type: [facility] ER Attending Dr: Ordering Provider: Lillian Hutton MD Date of Service: 03/04/24 ECG/ECG 12 lead ECG: Fall Copies to: Test Reason : Blood Pressure : */* mmHG Vent. Rate : 93 BPM Atrial Rate : 93 BPM P-R Int : 156 ms QRS Dur : 72 ms QT Int : 360 ms P-R-T Axes : 58 64 69 degrees QTcB Int : 447 ms Normal sinus rhythm Low voltage QRS Borderline ECG When compared with ECG of 28-Sep-2021 02:06, No significant change was found Confirmed by LILLIAN HUTTON MD ([id number]) on 03/04/2024 11:40:44 PM Referred By: Electronically Signed By: LILLIAN HUTTON MD Transcribed By: MUS Signed By Lillian Hutton MD 03/04/24 5310 Normal [facility] Urine Cultureon 03-04-2024 Bacteria identified Cx Nom (U) ORGANISM: Escherichia coli (O:ESCCOL) Eros Count >100,000 Aerobic JIMMY Charge (NMIC56) SUSCEPTIBILITY ORGANISM: O:ESCCOL ANTIBIOTIC INTERPRETATION JIMMY Amikacin S <16 Amoxacillin/K Clavulanate S <8 Ampicillin S <8 Ampicillin/Sulbactam S <4 Aztreonam S <4 Cefazolin S <2 Cefepime S <2 Ceftazidime S <1 Ceftazidime/Avibactam S <4 Ceftolozane/Tazobactam S <2 Ceftriaxone S <1 Cefuroxime S <4 Ciprofloxacin S <0.25 Ertapenem S <0.5 Gentamicin S <2 Levofloxacin S <0.5 Meropenem S <1 Meropenem/Vaborbactam S <2 Nitrofurantoin S <32 Piperacillin/Tazobactam S <8 Tetracycline S <4 Tigecycline S <2 Tobramycin S <2 Trimethoprim/Sulfamethoxaz ole S <0.5 S = SUSCEPTIBLE I = INTERMEDIATE R [...] RESISTANT TO ALL B-LACTAM DRUGS. PERFORMED BY: [place] [address] PATHOLOGIST CHRISTIAN SCIENCE HEALER NARDA CHEN M.D. Normal [facility] Comment on above: Performed By: #### C GAGAN MERCER #### [address] lumbar spine wo heather CT lumbar spine wo [facility] Main [place] [address] [place] [address] CT Scan Report Signed Patient: Alton Barker MR#: [id number] : 1940 Acct:[id number] Age/Sex: 83 / F ADM Date: 02/26/24 Loc: ER Room: Type: [facility] ER Attending Dr: Copies to: Lillian Hutton MD Ordering Provider: Lillian Hutton MD Date of Service: 02/26/24 CT/CT lumbar spine wo con: m,n CT lumbar spine wo con 02/26/2024 7:24 PM History:Low back pain. History of L1 compression fracture TECHNIQUE: Multi detector CT axial slices of the lumbar spine were obtained without IV contrast. Volumetric acquisition sagittal, coronal, and 3-D reconstructions were performed and reviewed on a separate workstation. CT was performed with one or more of the following dose reduction techniques: Automated exposure control, adjustment of the mA and/or kV according to patient size, or use of iterative reconstruction technique. COMPARISON: Lumbar spine CT 11/04/2021 FINDINGS: There appears to be evolution of the patient's L1 vertebral body fracture with approximately 50% body loss since 2021. There appears to be approximately 6 mm retropulsion into the spinal canal. No acute fracture line is seen. Remaining vertebral body heights appear maintained. Scattered endplate and facet joint degenerative changes are noted with multilevel vacuum disc phenomenon and mild to moderate disc space narrowing. Transverse processes appear intact. SI joints demonstrate degenerative change. No paraspinal mass. Visualized retroperitoneum demonstrates no acute findings. CT/CT lumbar spine wo con IMPRESSION: Chronic L1 vertebral body fracture which has progressed since 2021 with associated 6 mm retropulsion into the spinal canal. No acute process is noted. Multilevel degenerative disc disease. Impression dictated by: Alcides Malin Jr., D.O.02/27/2024 8:19 AM Dictation Location: [place] [address] Transcribed By: [facility] 02/27/24818 Dictated By: Alcides Malin Jr, DO 02/27/24815 Signed By: 02/27/24818 Normal [facility] 25-hydroxyvitamin D3 [Mass/V ol]on 02-22-2024 25-hydroxyvitamin D [Mass/Vol] 61.8 ng/mL 30.0 - 100.0 ng/mL [facility] Comment on above: Vitamin D deficiency has been defined by the [place] of [employer] and an Endocrine Society practice guideline as a level of serum 25-OH vitamin D less than 20 ng/mL (1,2). The Endocrine Society went on to further define vitamin D insufficiency as a level between 21 and 29 ng/mL (2). 1. IOM ([place] of [employer]). 2010. Dietary reference intakes for calcium and D. [place]: The National Academies Press. 2. Earl MEDINA, Ken WILL, Yoandy PEDERSEN, et al. Evaluation, treatment, and prevention of vitamin D deficiency: an Endocrine Society clinical practice guideline. JCEM. 2010; 96(7):1911-30. CBC W Auto Differential pane l (Bld)on 02-22-2024 Basophils (Bld) [#/Vol] 0 10*3/uL [facility] Basophils/100 WBC (Bld) 1 % Not Estab. [facility] Eosinophils (Bld) [#/Vol] 0.2 10*3/uL [facility] Eosinophils/100 WBC (Bld) 3 % Not Estab. [facility] Erythrocyte distribution width (RBC) [Ratio] 14.5 % 11.7 - 15.4 % [facility] Hematocrit (Bld) [Volume fraction] 37.9 % 34.0 - 46.6 % [facility] Hemoglobin (Bld) [Mass/Vol] 11.6 g/dL 11.1 - 15.9 g/dL [facility] Immature granulocytes (Bld) [#/Vol] 0 10*3/uL [facility] Immature granulocytes/100 WBC (Bld) 0 % Not Estab. [facility] Lymphocytes (Bld) [#/Vol] 1.7 10*3/uL [facility] Lymphocytes/100 WBC (Bld) 24 % Not Estab. [facility] MCH (RBC) [Entitic mass] 29.2 pg 26.6 - 33.0 pg [facility] MCHC (RBC) [Mass/Vol] 30.6 g/dL Low 31.5 - 35.7 g/dL [facility] MCV (RBC) [Entitic vol] 96 fL 79 - 97 fL [facility] Monocytes (Bld) [#/Vol] 0.5 10*3/uL [facility] Monocytes/100 WBC (Bld) 7 % Not Estab. [facility] Neutrophils (Bld) [#/Vol] 4.8 10*3/uL [facility] Neutrophils/100 WBC (Bld) 65 % Not Estab. [facility] Platelets (Bld) [#/Vol] 174 10*3/uL [facility] RBC (Bld) [#/Vol] 3.97 10*6/uL [facility] WBC (Bld) [#/Vol] 7.4 10*3/uL [facility] Comprehensive metabolic pane loco 02-22-2024 Albumin [Mass/Vol] 3.8 g/dL 3.7 - 4.7 g/dL [facility] ALP [Catalytic activity/Vol] 96 U/L [facility] ALT [Catalytic activity/Vol] 15 U/L [facility] AST [Catalytic activity/Vol] 16 U/L [facility] Bilirubin [Mass/Vol] 1.2 mg/dL 0.0 - 1 .2 mg/dL [facility] Calcium [Mass/Vol] 8.9 mg/dL 8.7 - 10. 3 mg/dL [facility] Chloride [Moles/Vol] 102 mmol/L 96 - 10 6 mmol/L [facility] CO2 [Moles/Vol] 25 mmol/L 20 - 29 mmol/L [facility] Creatinine [Mass/Vol] 0.95 mg/dL 0.57 - 1.00 mg/dL [facility] GFR/1.73 sq M.predicted among non-blacks MDRD (S/P/Bld) [Vol rate/Area] 60 mL/min/{1.73_m2} 59 - PINF mL/min/1.7 3 [facility] Globulin (S) [Mass/Vol] 3.1 g/dL 1.5 - 4.5 g/dL [facility] Glucose [Mass/Vol] 190 mg/dL High 70 - 99 mg/dL [facility] Potassium [Moles/Vol] 4.1 mmol/L 3.5 - 5.2 mmol/L [facility] Protein [Mass/Vol] 6.9 g/dL 6.0 - 8.5 g/dL [facility] Sodium [Moles/Vol] 142 mmol/L 134 - 144 mmol/L [facility] Urea nitrogen [Mass/Vol] 13 mg/dL 8 - 27 mg/dL [facility] Urea nitrogen/Creatinine [Mass ratio] 14 mg/mg [facility] Laboratory - Chemistry and C hemistry - challengeon 02-22-2024 TSH Qn 1.68 m[IU]/L [facility] Lipid 1996 panelon 4 Cholesterol [Mass/Vol] 115 mg/dL 100 - 199 mg/dL [facility] Cholesterol in HDL [Mass/Vol] 50 mg/dL 39 - PINF mg/dL [facility] Cholesterol in LDL [Mass/Vol] 45 mg/dL 0 - 99 mg/dL [facility] Cholesterol in VLDL [Mass/Vol] 20 mg/dL 5 - 40 mg/dL [facility] Triglyceride [Mass/Vol] 111 mg/dL 0 - 149 mg/dL [facility] No Panel Informationon 02-21 Interpretation and review of laboratory results Abnormal [facility] Performed at: 01 - [address] [id number] Hand Alterations Tailor: Ismael Kruger PhD, Phone: [phone] [facility] Performed at: 01 - [address] [id number] Hand Alterations Tailor: Ismael Kruger PhD, Phone: [phone] [facility] Specimen Status Reporton Clindamycin Disk diffusion (KB) [[facility] Comment [facility] Comment on above: Ambig Abbrev CMP14 D efault Ambig Abbrev CMP14 Default A hand-written panel/profile was received from your office. In accordance with the [facility] [employer] Ambiguous Test Code Policy dated September 2002, we have completed your order by using the closest currently or formerly recognized AMA panel. We have assigned Comprehensive Metabolic Panel (14), Test Code #102697 to this request. If this is not the testing you wished to receive on this specimen, please contact the [employer] Client Inquiry/Technical Services Department to clarify the test order. We appreciate your business. Ambig Abbrev LP Default Ambig Abbrev LP Default A hand-written panel/profile was received from your office. In accordance with the [facility] Ambiguous Test Code Policy dated September 2002, we have completed your order by using the closest currently or formerly recognized AMA panel. We have assigned Lipid Panel, Test Code #159795 to this request. If this is not the testing you wished to receive on this specimen, please contact the [facility] Client Inquiry/Technical Services Department to clarify the test order. We appreciate your business. Vitamin B12on 02-22-2024 Cobalamin (Vitamin B12) [Mass/Vol] pg/mL High 232 - 1245 pg/mL [facility] Laboratory - Hematology and Cell countson 02-21-2024 HbA1c (Bld) [Mass fraction] 7.6 % [facility] No Panel Informationon 02-20 [facility] Laboratory - Hematology and Cell countson 11-15-2023 HbA1c (Bld) [Mass fraction] 9.2 % [facility] No Panel Informationon 11-14 [facility] CNOVon 10-25-2023 CNOV Office Visit (NRMDN) -- ALTON BARKER ([id number]) 1940 F Date Time Provider Department 10/25/23 1:[address] [facility] your visit today, we recorded the following information about you: Pulse Blood pressure Weight Height 74/minute 137/76 112 kg 1.676 m Gloria Perez, PRESS ASSISTANT AND FEEDER.CAUL DRESSER 11/02/2023 9:17 PM Signed [facility] - FOLLOW UP EVALUATION Honey Rabago DO [address] [facility] [address] [facility] [address] Dear Honey Rabago DO: I had the pleasure of seeing Ms. Barker for follow-up today. As you know she is a 83 year old right-handed female with a history of Parkinson's disease since 2013. She is seen with her son. Subjective Previous Plan-06/23/2023 Visit: Parkinson's disease: Change the timing of the Sinemet to that noted below. Please let me know if you change your mind about physical therapy and if the professor of archaeology approves Depression and anxiety: Continue Venlafaxine (Effexor) [...] use your Cpap and therefore feel better Interval History: She has been more sad lately as one of the ladies she is close to at her facility left three weeks ago and she does not know where she is at. Her son said she has mentioned that she is feeling weak. She has not had physical therapy lately and is not exercising. Movement Disorders Medications Schedule - as of the start of the visit: Medications 7am 11am 3pm 7pm Bedtime Sinemet 25/100 1.5 1 1 1 Effexor 150mg 1 Effexor 75mg 1 Mirtazapine 7.5mg 1 Parkinson's Motor Complications Medication benefit onset: 5 minutes Medication duration: 3.5 hours Wearing off: yes (Comment: She will have [...] with doing hobbies and other activities: Yes (moderate) Difficulties turning in bed: Yes (slight) Difficulties getting out of bed, car or chair: Yes (moderate) Tremors/Gait/Balance Shaking or tremors: Yes (mild) Walking and balance problems: Yes (moderate) Number of falls in the Last Month: 1 She fell onto her knees yesterday and hit her head and has been dizzy since though it was worse yesterday. Her knee is also hurt. Gait freezing: Yes (slight) Autonomic/Pain Lightheadeness on standing: Yes (mild) Urinary problems: Yes (severe) Chronic Constipation problems: Yes (slight) Pain and other sensations: Yes (moderate) Speech/Swallowing Speech problems: Yes (slight) Drooling: Yes (moderate) Chewing and swallowing problems: Yes (slight) Sleep/Fatigue Sleep problems: Yes (moderate) This has been better lately. Daytime sleepiness: Yes (mild) Fatigue: Yes (slight) In addition, the following non-motor symptoms and palliative concerns were evaluated: Sleep/Fatigue: REM sleep behavior disorder: No She is not sure but is not tangled in her sheets, bed is not a mess, she has not fallen out of bed, etc. Restless Legs Syndrome: No Leg swelling: Intermittent Impaired sense of smell: Yes Cognition: Cognitive impairment: yes She and her son feel it is about the same. MoCA Cognitive assessment: 29 (02/03/2021) Hallucinations and delusions: no Apathy: She is interested in the facility and her son said she is more interested in keeping her room up than she had been. Impulse control disorder: No Not currently a problem but her son said in the past that she ordered a lot online or on TV, $15/month on lotnumber[employer] tickets (in past also) Palliative Concerns: Caregiver burden: In assisted living so now less stress on son and daughter in law Spiritual concerns: No Advanced directives on file: No Palliative services: No Therapy and Exercise: Last PT Date: spring Last OT Date: ST Date: spring Exercises Regularly: Yes She downloaded exercises off [employer]. ALLERGIES Allergen Reactions Hydrocodone-Acetami* Mental Status Change Adhesive Tape (Sridevi* Rash Bupropion Mental Status Change hallucinations Latex, Natural Rubb* Rash Rosuvastatin Calcium Unknown Current Outpatient Medications Medication Sig venlafaxine ER (EFFEXOR XR) 150 mg 24 hr capsule Take 150 mg by mo (more content not included)... Normal [facility] CNOVon 06-23-2023 CNOV Office Visit (NRMDN) -- ALTON BARKER ([id number]) 1940 F Date Time Provider Department 06/23/23 3:00 PM GLORIA PEREZ During your visit today, we recorded the following information about you: Weight Height 107.6 kg 1.676 m Gloria Perez APRN.CAUL DRESSER 06/23/2023 8:12 PM Signed [facility] - FOLLOW UP EVALUATION Honey Rabago DO [address] [facility] [address] [facility] [address] Dear Honey J Vaschak, DO: I had the pleasure of seeing Ms. Barker for follow-up today. As you know she is a 82 year old right-handed female with a history of Parkinson's disease since 2013. She is seen with her son. Subjective Previous Plan-01/20/2023 Visit: Parkinson's disease: Continue current medication schedule but discuss with the consumer loan officer if you can take the Sinemet on [...] No No (more content not included)... Normal [facility] ALL HEMOGLOBINon 04-27-2023 Hemoglobin (Bld) [Mass/Vol] 11.7 g/dL Low 12.0 - 16.0 g/dL [facility] Interpretation and review of laboratory results Abnormal [facility] XR CHEST 2 VIEWSon 4 [...] BY: Delgado Moya, DO Normal Not Available CULTURE URINEon 07-16-2022 CULTURE URINE Isolate 1 [...] Trimethoprim/Sulfamethoxaz ole <=20 S F Normal [facility] Comment on above: Performed By: #### U RCX #### [facility] [address] [place] [address] Dr. Joyce MCGREGOR (CLEAN/CATCH) MOBILE UI DEVELOPER/MICRO I F IND.on 2022 Bilirubin Ql (U) Negative Normal NEGATIVE [facility] Comment on above: Performed By: #### U MICRO, UACSIND #### [facility] [address] [address] [address] Joyce Strauss Clarity (U) CLEAR Normal CLEAR [facility] Comment on above: Performed By: #### U MICRO, UACSIND #### [facility] [address] [address] [address] Joyce Strauss Color (U) LT. YELLOW Normal YELLOW [facility] Comment on above: Performed By: #### U MICRO, UACSIND #### [facility] [address] [address] [address] Joyce Strauss Glucose Ql (U) Negative Normal NEGATIVE [facility] Comment on above: Performed By: #### U MICRO, UACSIND #### [facility] [address] [place] [address] Dr. Joyce Strauss Hemoglobin Ql (U) Negative Normal NEGATIVE [facility] Comment on above: Performed By: #### U MICRO, UACSIND #### [facility] [address] [address] [address] Joyce Strauss Ketones Ql (U) Negative Normal NEGATIVE [facility] Comment on above: Performed By: #### U MICRO, UACSIND #### [facility] [address] [place] [address] Dr. Joyce Strauss LEUKOCYTES LARGE Abnormal NEGATIVE [facility] Comment on above: Performed By: #### U MICRO, UACSIND #### [facility] [address] [address] [address] Joyce Strauss Nitrite Ql (U) Positive Abnormal NEGATIVE [facility] Comment on above: Performed By: #### U MICRO, UACSIND #### [facility] [address] [place] [address] Dr. Joyce Strauss pH (U) 5.5 [pH] Normal 5-9 [facility] Comment on above: Performed By: #### U MICRO, UACSIND #### [facility] [address] [address] [address] Joyce Strauss SPEC GRAVITY 1.010 Normal 1.005-<=1. 025 [facility] Comment on above: Performed By: #### U MICRO, UACSIND #### [facility] [address] [place] [address] Dr. Joyce Strauss UA PROTEIN TRACE Normal NEGATIVE/ TRACE [facility] Comment on above: Performed By: #### U MICRO, UACSIND #### [facility] [address] [place] [address] Dr. Joyce Strauss UR MICRO IND INDICATED Normal [facility] Comment on above: Performed By: #### U MICRO, UACSIND #### [facility] [address] [place] [address] Dr. Joyce Strauss Urobilinogen Qn (U) 0.2 {Cam'U}/dL Normal 0.2 - 1. 0 [facility] Comment on above: Performed By: #### U MICRO, UACSIND #### [facility] [address] [place] [address] Dr. Joyce Strauss URINE MICROSCOPIC ONLYon BACTERIA LARGE Abnormal NONE SEEN [facility] Comment on above: Performed By: #### U MICRO, UACSIND #### [facility] [address] [place] [address] Dr. Joyce Strauss Bacteria identified Cx Nom (U) INDICATED Normal [facility] Comment on above: Performed By: #### U MICRO, UACSIND #### [facility] [address] [place] [address] Dr. Joyce Strauss CA OX CRYSTALS RARE Normal [facility] Comment on above: Performed By: #### U MICRO, UACSIND #### [facility] [address] [place] [address] Dr. Joyce Strauss CAST NONE SEEN Normal NONE SEEN [facility] Comment on above: Performed By: #### U MICRO, UACSIND #### [facility] [address] [place] [address] Dr. Joyce Strauss Crystals LM Nom (Urine sed) SEEN Abnormal NONE SEEN [facility] Comment on above: Performed By: #### U MICRO, UACSIND #### [facility] [address] [address] [address] Joyce Strauss Epithelial cells LM Ql (Urine sed) FEW Abnormal NONE SEEN /RARE [facility] Comment on above: Performed By: #### U MICRO, UACSIND #### [facility] [address] [address] [address] Joyce Strauss MUCOUS NONE SEEN Normal NONE SEEN [facility] Comment on above: Performed By: #### U MICRO, UACSIND #### [facility] [address] [address] [address] Joyce Strauss RBC NONE SEEN Abnormal 0-2 [facility] Comment on above: Performed By: #### U MICRO, UACSIND #### [facility] [address] [place] [address] Dr. Joyce Strauss WBC (U) [#/Vol] /uL Abnormal NONE SEEN [facility] Comment on above: Performed By: #### U MICRO, UACSIND #### [facility] [address] [place] [address] Dr. Joyce Strauss CULTURE URINEon 06-03-2022 CULTURE [...] Trimethoprim/Sulfamethoxaz ole <=20 S F Normal [facility] Comment on above: Performed By: #### U RCX #### [facility] [address] [place] [address] Dr. Joyce Strauss UA RANDOMon 06-01-2022 Bilirubin Ql (U) Negative Normal NEGATIVE [facility] Comment on above: Performed By: #### U A #### [facility] [address] [place] [address] Dr. Joyce Strauss Clarity (U) CLOUDY Abnormal CLEAR [facility] Comment on above: Performed By: #### U A #### [facility] [address] [place] [address] Dr. Joyce Strauss Color (U) YELLOW Normal YELLOW [facility] Comment on above: Performed By: #### U A #### [facility] [address] [place] [address] Dr. Joyce Strauss Glucose Ql (U) Negative Normal NEGATIVE [facility] Comment on above: Performed By: #### U A #### [facility] [address] [place] [address] Dr. Joyce Strauss Hemoglobin Ql (U) MODERATE Abnormal NEGATIVE [facility] Comment on above: Performed By: #### U A #### [facility] [address] [place] [address] Dr. Joyce Strauss Ketones Ql (U) Negative Normal NEGATIVE [facility] Comment on above: Performed By: #### U A #### [facility] [address] [place] [address] Dr. Joyce Strauss LEUKOCYTES LARGE Abnormal NEGATIVE [facility] Comment on above: Performed By: #### U A #### [facility] [address] [place] [address] Dr. Joyce Strauss Nitrite Ql (U) Positive Abnormal NEGATIVE [facility] Comment on above: Performed By: #### U A #### [facility] [address] [place] [address] Dr. Joyce Strauss pH (U) 6.0 [pH] Normal 5-9 [facility] Comment on above: Performed By: #### U A #### [facility] [address] [place] [address] Dr. Joyce Strauss SPEC GRAVITY 1.010 Normal 1.005-<=1. 025 [facility] Comment on above: Performed By: #### U A #### [facility] [address] [place] [address] Dr. Joyce Strauss UA PROTEIN 100 mg/dl Abnormal NEGATIVE/ TRACE [facility] Comment on above: Performed By: #### U A #### [facility] [address] [address] [address] Joyce Strauss Urobilinogen Qn (U) 1.0 {Cam'U}/dL Normal 0.2 - 1. 0 [facility] Comment on above: Performed By: #### U A #### [facility] [address] [address] [address] Joyce Strauss Urine culture routineOrdered By: Honey Rabago on 01-01-2022 Bacteria identified Cx Nom (U) Escherichia coli [facility] Automated erythrocytes count in urine sediment (number/area)Ordered By: Honey Rabago on 12-30-2021 RBC Auto (Urine sed) [#/Area] 3-4 [HPF] 0-4 [facility] Automated leukocytes count i n urine sediment (number/area)Ordered By: Honey Rabago on 12-30-2021 WBC Auto (Urine sed) [#/Area] 50-100 [HPF] 0-4 [facility] Bilirubin Test strip Ql (U)O rdered By: Honey Rabago on 12-30-2021 Bilirubin Ql (U) Negative Negative [facility] Color Auto (U)Ordered By: Sidra Rabago on 12-30-2021 Color (U) Yellow Yellow [facility] Ketones Auto test strip (U) [Mass/Vol]Ordered By: Honey Rabago on 12-30-2021 Ketones (U) [Mass/Vol] Negative Negative [facility] Laboratory - UrinalysisOrder ed By: Honey Rabago on 12-30-2021 Hyaline casts LM Ql (Urine sed) 0-8 [LPF] 0-8 [facility] Nitrite Test strip Ql (U)Ord ered By: Honey Rabago on 12-30-2021 Nitrite Ql (U) Positive Negative [facility] Protein Auto test strip (U) [Mass/Vol]Ordered By: Honey Rabago on 12-30-2021 Protein (U) [Mass/Vol] Trace mg/dL Negative [facility] Specific gravity Auto test s trip (U) [Rel density]Ordered By: Honey Rabago on 12-30-2021 Specific gravity (U) [Rel density] 1.017 1.001-1.03 0 [facility] Squamous epithelial cells de tection in urine sediment by light microscopyOrdered By: Honey Rabago on 12-30-2021 Epithelial cells.squamous LM Ql (Urine sed) 1-2 [HPF] 0-2 [facility] Urine bacteria detection by automated methodOrdered By: Honey Rabago on 12-30-2021 Bacteria Auto Ql (U) 1+ None Seen [facility] Urine clarity by refractomet ry automatedOrdered By: Honey Rabago on 12-30-2021 Clarity Refractometry automated (U) Cloudy Clear [facility] Urine glucose measurement by automated test strip (mass/volume)Ordered By: Honey Rabago on 12-30-2021 Glucose Auto test strip (U) [Mass/Vol] Normal mg/dL Normal [facility] Urine hemoglobin detection b y automated test stripOrdered By: Honey Rabago on 12-30-2021 Hemoglobin Auto test strip Ql (U) Negative Negative [facility] Urine leukocyte esterase det ection by automated test stripOrdered By: Honey Rabago on 12-30-2021 Leukocyte esterase Auto test strip Ql (U) 3+ Negative [facility] Urine sediment crystal ident ification by light microscopyOrdered By: Honey Rabago on 12-30-2021 Crystals LM Nom (Urine sed) None seen [HPF] [facility] Urobilinogen Auto test strip (U) [Mass/Vol]Ordered By: Honey Rabago on 12-30-2021 Urobilinogen (U) [Mass/Vol] Normal mg/dL Normal [facility] pH Auto test strip (U)Ordere d By: Honey Rabago on 12-30-2021 pH (U) 8.5 [pH] 5.0-9.0 [facility] PROTIMEon 12-21-2021 INR Coag (PPP) [Relative time] 2.34 {INR} Normal [facility] Comment on above: Performed By: #### P T #### [facility] [address] [address] [address] Joyce Strauss INR GUIDELINES SEE BELOW Normal [facility] Comment on above: Result Comment: GUDELIA RED INR: 2.0 - 3.0 CONDITIONS NOT LISTED BELOW 2.5 - 3.5 FOR PROSTHETIC HEART VALVE REPLACEMENT 2.5 - 3.5 RECURRENT THROMBOSIS Performed By: #### P T #### [facility] [address] [address] [address] Joyce Strauss PT Coag (PPP) [Time] 23.9 s Critically high 9.0-11.6 [facility] Comment on above: Performed By: #### P T #### [facility] [address] [place] [address] Dr. Joyce Strauss PROTIMEon 12-14-2021 INR GUIDELINES SEE BELOW Normal [facility] Comment on above: Result Comment: GUDELIA RED INR: 2.0 - 3.0 CONDITIONS NOT LISTED BELOW 2.5 - 3.5 FOR PROSTHETIC HEART VALVE REPLACEMENT 2.5 - 3.5 RECURRENT THROMBOSIS Performed By: #### P T #### [facility] [address] [place] [address] Dr. Joyce Strauss PT Coag (PPP) [Time] 20.6 s Critically high 9.0-11.6 [facility] Comment on above: Performed By: #### P T #### [facility] [address] [place] [address] Dr. Joyce Strauss Prothrombin Time INRon 12-14 Prothrombin Time INR [facility] Other INR Coag (PPP) [Relative time] 2.00 {INR} Normal [facility] Other Comment on above: Performed By: #### P T #### [facility] [address] [place] [address] Dr. Joyce Strauss PROTIMEon 11-30-2021 INR GUIDELINES SEE BELOW Normal [facility] Comment on above: Result Comment: GUDELIA RED INR: 2.0 - 3.0 CONDITIONS NOT LISTED BELOW 2.5 - 3.5 FOR PROSTHETIC HEART VALVE REPLACEMENT 2.5 - 3.5 RECURRENT THROMBOSIS Performed By: #### P T #### [facility] [address] [place], [place] [address] Dr. Joyce Strauss PT Coag (PPP) [Time] 25.9 s Critically high 9.0-11.6 [facility] Comment on above: Performed By: #### P T #### [facility] [address] [place], [place] [address] Dr. Joyce Strauss Prothrombin Time INRon 11-30 Prothrombin Time INR [facility] Other INR Coag (PPP) [Relative time] 2.55 {INR} Normal [facility] Other Comment on above: Performed By: #### P T #### [facility] [address] [place], [place] [address] Dr. Joyce Strauss Glucose Glucometer (BldC) [M ass/Vol]Ordered By: Alcides Moya on 11-25-2021 Glucose [Mass/Vol] 125 mg/dL [facility] Comment on above: Random Glucose Refer ence Range is dependent on time and content of last meal. Glucose of more than 200 mg/dL in a nonstressed, ambulatory subject supports the diagnosis of Diabetes Mellitus. Laboratory - CoagulationOrde red By: Alcides Moya on 11-25-2021 PT Coag (PPP) [Time] 25.5 s 9.0-12.9 [facility] Platelet poor plasma interna tional normalized ratio (INR) by coagulation assay (relatOrdered By: Alcides Moya on 11-25-2021 INR Coag (PPP) [Relative time] 2.2 {INR} [facility] Comment on above: INR [...] with mechanical heart valves: 3 - 4.5 Basophils Auto (Bld) [#/Vol] Ordered By: Elham Mendoza on 11-24-2021 Basophils (Bld) [#/Vol] N/A [facility] Basophils/100 WBC Auto (Bld) Ordered By: Elham Mendoza on 11-24-2021 Basophils/100 WBC (Bld) N/A [facility] Blood anisocytosis detection Ordered By: Elham Mendoza on 11-24-2021 Anisocytosis Ql (Bld) Moderate [facility] Blood hemoglobin measurement (mass/volume)Ordered By: Elham Mendoza on 11-24-2021 Hemoglobin (Bld) [Mass/Vol] 11.4 g/dL 11.8-15.4 [facility] Blood leukocytes automated c ount (number/volume)Ordered By: Elham Mendoza on 11-24-2021 WBC (Bld) [#/Vol] 6.0 10*3/uL 4.5-11.0 [facility] Creatinine and Glomerular fi ltration rate.predicted panel (S/P/Bld)Ordered By: Elham Mendoza on 11-24-2021 Creatinine [Mass/Vol] 0.53 mg/dL 0.44-1.03 [facility] Eosinophils Auto (Bld) [#/Vo l]Ordered By: Elham Mendoza on 11-24-2021 Eosinophils (Bld) [#/Vol] N/A [facility] Eosinophils/100 WBC Auto (Bl d)Ordered By: Elham Mendoza on 11-24-2021 Eosinophils/100 WBC (Bld) N/A [facility] Erythrocyte distribution wid th Auto (RBC) [Ratio]Ordered By: Elham Mendoza on 11-24-2021 Erythrocyte distribution width (RBC) [Ratio] 18.4 % 11.9-15.3 [facility] Estimated glomerular filtrat ion rate (GFR) non- AmericanOrdered By: Elham Mendoza on 11-24-2021 GFR/1.73 sq M.predicted among non-blacks MDRD (S/P/Bld) [Vol rate/Area] > 60 mL/Min [facility] Hematocrit Auto (Bld) [Volum e fraction]Ordered By: Elham Mendoza on 11-24-2021 Hematocrit (Bld) [Volume fraction] 34.9 % 34.0-46.4 [facility] Laboratory - Hematology and Cell countsOrdered By: Elham Mendoza on 11-24-2021 Nucleated RBC/100 WBC (Bld) [Ratio] 0.5 % 0-0.5 [facility] Lymphocytes Auto (Bld) [#/Vo l]Ordered By: Elham Mendoza on 11-24-2021 Lymphocytes (Bld) [#/Vol] N/A [facility] Lymphocytes/100 WBC Auto (Bl d)Ordered By: Elham Mendoza on 11-24-2021 Lymphocytes/100 WBC (Bld) N/A [facility] Lymphocytes/100 WBC (Bld) 35 % 18-42 [facility] Lymphocytes/100 WBC Manual c nt (Bld)Ordered By: Elham Mendoza on 11-24-2021 Lymphocytes/100 WBC (Bld) 1 % 0-12 [facility] MCH Auto (RBC) [Entitic mass ]Ordered By: Elham Mendoza on 11-24-2021 MCH (RBC) [Entitic mass] 29.9 pg 24.7-34.3 [facility] MCHC Auto (RBC) [Mass/Vol]Or dered By: Elham Mendoza on 11-24-2021 MCHC (RBC) [Mass/Vol] 32.8 g/dL 32.0-35.0 [facility] MCV Auto (RBC) [Entitic vol] Ordered By: Elham Mendoza on 11-24-2021 MCV (RBC) [Entitic vol] 91.2 fL 80-100 [facility] Monocyte %Ordered By: Elham Mendoza on 11-24-2021 Monocytes/100 WBC (Bld) 2 % 1-3 [facility] Monocytes Auto (Bld) [#/Vol] Ordered By: Elham Mendoza on 11-24-2021 Monocytes (Bld) [#/Vol] N/A [facility] Monocytes/100 WBC Auto (Bld) Ordered By: Elham Mendoza on 11-24-2021 Monocytes/100 WBC (Bld) N/A [facility] Monocytes/100 WBC Manual cnt (Bld)Ordered By: Elham Mendoza on 11-24-2021 Monocytes/100 WBC (Bld) 7 % 2-11 [facility] Myelocytes/100 WBC Manual cn t (Bld)Ordered By: Elham Mendoza on 11-24-2021 Myelocytes/100 WBC (Bld) 1 % 0-0 [facility] Neutrophils Auto (Bld) [#/Vo l]Ordered By: Elham Mendoza on 11-24-2021 Neutrophils (Bld) [#/Vol] N/A [facility] Neutrophils/100 WBC Auto (Bl d)Ordered By: Elham Mendoza on 11-24-2021 Neutrophils/100 WBC (Bld) N/A [facility] No Panel InformationOrdered By: Elham Mendoza on 11-24-2021 Estimated GFR () > 60 mL/Min [facility] Comment on above: GFR estimated refere nce range: According to KDOQI guidelines, <60 ml/min/1.73m2 is sufficient to diagnose a patient with chronic kidney disease. Pharmacy Creatinine Clearance (Chem 64.37 [facility] Platelet Estimate Normal Normal [facility] Platelet Morphology Comment Normal Normal [facility] Platelet mean volume Auto (B ld) [Entitic vol]Ordered By: Elham Mendoza on 11-24-2021 Platelet mean volume (Bld) [Entitic vol] 8.8 fL 6.3-10.7 [facility] Platelets Auto (Bld) [#/Vol] Ordered By: Elham Mendoza on 11-24-2021 Platelets (Bld) [#/Vol] 285 10*3/uL 150-450 [facility] RBC Auto (Bld) [#/Vol]Ordere d By: Elham Mendoza on 11-24-2021 RBC (Bld) [#/Vol] 3.82 10*6/uL 3.60-5.00 [facility] RBC morphologyOrdered By: Pramod Mendoza on 11-24-2021 RBC morphology finding Nom (Bld) N/A [facility] Segmented neutrophils/100 WB C Manual cnt (Bld)Ordered By: Elham Mendoza on 11-24-2021 Segmented neutrophils/100 WBC (Bld) 54 % 50-70 [facility] Serum or plasma anion gap de terminationOrdered By: Elham Mendoza on 11-24-2021 Anion gap [Moles/Vol] 11.8 mmol/L 6.0-15.0 [facility] Serum or plasma calcium alondra urement (mass/volume)Ordered By: Elham Mendoza on 11-24-2021 Calcium [Mass/Vol] 8.7 mg/dL 8.2-10.2 [facility] Serum or plasma chloride link surement (moles/volume)Ordered By: Elham Mendoza on 11-24-2021 Chloride [Moles/Vol] 103 mmol/L 95-114 [facility] Serum or plasma glucose alondra urement (mass/volume)Ordered By: Elham Mendoza on 11-24-2021 Glucose [Mass/Vol] 138 mg/dL 70-100 [facility] Comment on above: ADA recommended refe rence [...] on 11-24-2021 Potassium [Moles/Vol] 3.9 mmol/L 3.5-5.1 [facility] Serum or plasma sodium measu rement (moles/volume)Ordered By: Elham Mendoza on 11-24-2021 Sodium [Moles/Vol] 139 mmol/L 136-146 [facility] Serum or plasma total carbon dioxide measurement (moles/volume)Ordered By: Elham Mendoza on 11-24-2021 CO2 [Moles/Vol] 28.1 mmol/L 22.0-30.0 [facility] Serum or plasma urea nitroge n measurement (mass/volume)Ordered By: Elham Mendoza on 11-24-2021 Urea nitrogen [Mass/Vol] 6 mg/dL 9-23 [facility] No Panel InformationOrdered By: Alcides Moya on 11-21-2021 Bedside Glucose Comment Glu2: cleaned meter [facility] CT biopsyOrdered By: Amanda viveros on 11-19-2021 Transferrin [Mass/Vol] 173 mg/dL 180-380 [facility] Iron [Mass/volume] in Serum or PlasmaOrdered By: Amanda Jaimes on 11-19-2021 Iron [Mass/Vol] 56 ug/dL 40-150 [facility] Iron binding capacity [Mass/ volume] in Serum or PlasmaOrdered By: Amanda Jaimes on 11-19-2021 Iron binding capacity [Mass/Vol] 242 ug/dL 255-450 [facility] Iron saturation [Mass Fracti on] in Serum or PlasmaOrdered By: Amanda Jaimes on 11-19-2021 Iron saturation [Mass fraction] 23.0 % 20-50 [facility] Glucose Glucometer (BldC) [M ass/Vol]Ordered By: Alcides Moya on 11-13-2021 Glucose [Mass/Vol] 146 mg/dL [facility] Comment on above: Random Glucose Refer ence Range is dependent on time and content of last meal. Glucose of more than 200 mg/dL in a nonstressed, ambulatory subject supports the diagnosis of Diabetes Mellitus. Laboratory - CoagulationOrde red By: Alcides Moya on 11-13-2021 PT Coag (PPP) [Time] 29.5 s 9.0-12.9 [facility] No Panel InformationOrdered By: Alcides Moya on 11-13-2021 Bedside Glucose Comment Glu2: cleaned meter [facility] Platelet poor plasma interna tional normalized ratio (INR) by coagulation assay (relatOrdered By: Alcides Moya on 11-13-2021 INR Coag (PPP) [Relative time] 2.6 {INR} [facility] Comment on above: INR [...] with mechanical heart valves: 3 - 4.5 Albumin [Mass/volume] in Ser um or PlasmaOrdered By: Alcides Moya on 11-12-2021 Albumin [Mass/Vol] 3.1 g/dL 3.2-5.5 [facility] Basophils Auto (Bld) [#/Vol] Ordered By: Alcides Moya on 11-12-2021 Basophils (Bld) [#/Vol] 0.0 10*3/uL 0.0-0.2 [facility] Basophils/100 WBC Auto (Bld) Ordered By: Alcides Moya on 11-12-2021 Basophils/100 WBC (Bld) 0.5 % . [facility] Blood hemoglobin measurement (mass/volume)Ordered By: Alcides Moya on 11-12-2021 Hemoglobin (Bld) [Mass/Vol] 12.5 g/dL 11.8-15.4 [facility] Blood leukocytes automated c ount (number/volume)Ordered By: Alcides Moya on 11-12-2021 WBC (Bld) [#/Vol] 5.0 10*3/uL 4.5-11.0 [facility] Creatinine and Glomerular fi ltration rate.predicted panel (S/P/Bld)Ordered By: Alcides Moya on 11-12-2021 Creatinine [Mass/Vol] 0.55 mg/dL 0.44-1.03 [facility] [facility] Eosinophils Auto (Bld) [#/Vo l]Ordered By: Alcides Moya on 11-12-2021 Eosinophils (Bld) [#/Vol] 0.2 10*3/uL 0.0-0.45 [facility] Eosinophils/100 WBC Auto (Bl d)Ordered By: Alcides Moya on 11-12-2021 Eosinophils/100 WBC (Bld) 3.8 % . [facility] Erythrocyte distribution wid th Auto (RBC) [Ratio]Ordered By: Alcides Moya on 11-12-2021 Erythrocyte distribution width (RBC) [Ratio] 17.3 % 11.9-15.3 [facility] Estimated glomerular filtrat ion rate (GFR) non- AmericanOrdered By: Alcides Moya on 11-12-2021 GFR/1.73 sq M.predicted among non-blacks MDRD (S/P/Bld) [Vol rate/Area] > 60 mL/Min [facility] Globulin Calc (S) [Mass/Vol] Ordered By: Alcides Moya on 11-12-2021 Globulin (S) [Mass/Vol] 3.7 g/dL [facility] Glucose Glucometer (BldC) [M ass/Vol]Ordered By: Alcides Moya on 11-12-2021 Glucose [Mass/Vol] 212 mg/dL [facility] Comment on above: Random Glucose Refer ence Range is dependent on time and content of last meal. Glucose of more than 200 mg/dL in a nonstressed, ambulatory subject supports the diagnosis of Diabetes Mellitus. Hematocrit Auto (Bld) [Volum e fraction]Ordered By: Alcides Moya on 11-12-2021 Hematocrit (Bld) [Volume fraction] 38.9 % 34.0-46.4 [facility] Laboratory - CoagulationOrde red By: Alcides Moya on 11-12-2021 PT Coag (PPP) [Time] 34.1 s 9.0-12.9 [facility] Laboratory - Hematology and Cell countsOrdered By: Alcides Moya on 11-12-2021 Nucleated RBC/100 WBC (Bld) [Ratio] 0.0 % 0-0.5 [facility] Lymphocytes Auto (Bld) [#/Vo l]Ordered By: Alcides Moya on 11-12-2021 Lymphocytes (Bld) [#/Vol] 2.0 10*3/uL 1.00-4.8 [facility] Lymphocytes/100 WBC Auto (Bl d)Ordered By: Alcides Moya on 11-12-2021 Lymphocytes/100 WBC (Bld) 39.7 % . [facility] MCH Auto (RBC) [Entitic mass ]Ordered By: Alcides Moya on 11-12-2021 MCH (RBC) [Entitic mass] 29.2 pg 24.7-34.3 [facility] MCHC Auto (RBC) [Mass/Vol]Or dered By: Alcides Moya on 11-12-2021 MCHC (RBC) [Mass/Vol] 32.2 g/dL 32.0-35.0 [facility] MCV Auto (RBC) [Entitic vol] Ordered By: Alcides Moya on 11-12-2021 MCV (RBC) [Entitic vol] 90.6 fL 80-100 [facility] Monocytes Auto (Bld) [#/Vol] Ordered By: Alcides Moya on 11-12-2021 Monocytes (Bld) [#/Vol] 0.5 10*3/uL 0.0-0.8 [facility] Monocytes/100 WBC Auto (Bld) Ordered By: Alcides Moya on 11-12-2021 Monocytes/100 WBC (Bld) 10.1 % . [facility] Neutrophils Auto (Bld) [#/Vo l]Ordered By: Alcides Moya on 11-12-2021 Neutrophils (Bld) [#/Vol] 2.3 10*3/uL 1.8-7.7 [facility] Neutrophils/100 WBC Auto (Bl d)Ordered By: Alcides Moya on 11-12-2021 Neutrophils/100 WBC (Bld) 45.9 % . [facility] No Panel InformationOrdered By: Alcides Moya on 11-12-2021 Bedside Glucose Comment Glu2: cleaned meter [facility] Estimated GFR () > 60 mL/Min [facility] Comment on above: GFR estimated refere nce range: According to KDOQI guidelines, <60 ml/min/1.73m2 is sufficient to diagnose a patient with chronic kidney disease. Pharmacy Creatinine Clearance (Chem 64.44 [facility] Platelet mean volume Auto (B ld) [Entitic vol]Ordered By: Alcides Moya on 11-12-2021 Platelet mean volume (Bld) [Entitic vol] 8.6 fL 6.3-10.7 [facility] Platelet poor plasma interna tional normalized ratio (INR) by coagulation assay (relatOrdered By: Alcides Moya on 11-12-2021 INR Coag (PPP) [Relative time] 3.0 {INR} [facility] Comment on above: INR [...] 11-12-2021 Platelets (Bld) [#/Vol] 241 10*3/uL 150-450 [facility] Protein [Mass/volume] in Ser um or PlasmaOrdered By: Alcides Moya on 11-12-2021 Protein [Mass/Vol] 6.8 g/dL 6.1-7.9 [facility] RBC Auto (Bld) [#/Vol]Ordere d By: Alcides Moya on 11-12-2021 RBC (Bld) [#/Vol] 4.29 10*6/uL 3.60-5.00 [facility] Serum or plasma alanine engel otransferase measurement without P-5'-P (enzymatic activiOrdered By: Alcides Moya on 11-12-2021 ALT No additional P-5'-P [Catalytic activity/Vol] 13 U/L 10-60 [facility] Serum or plasma albumin/glob ulin mass ratioOrdered By: Alcides Moya on 11-12-2021 Albumin/Globulin [Mass ratio] 0.8 {ratio} [facility] Serum or plasma alkaline bouchra sphatase measurement (enzymatic activity/volume)Ordered By: Alcides Moya on 11-12-2021 ALP [Catalytic activity/Vol] 84 U/L 32-92 [facility] Serum or plasma anion gap de terminationOrdered By: Alcides Moya on 11-12-2021 Anion gap [Moles/Vol] 11.9 mmol/L 6.0-15.0 [facility] Serum or plasma aspartate am inotransferase measurement (enzymatic activity/volume)Ordered By: Alcides Moya on 11-12-2021 AST [Catalytic activity/Vol] 22 U/L 10-42 [facility] Serum or plasma calcium alondra urement (mass/volume)Ordered By: Alcides Moya on 11-12-2021 Calcium [Mass/Vol] 9.2 mg/dL 8.2-10.2 [facility] Serum or plasma chloride link surement (moles/volume)Ordered By: Alcides Moya on 11-12-2021 Chloride [Moles/Vol] 100 mmol/L 95-114 [facility] Serum or plasma glucose alondra urement (mass/volume)Ordered By: Alcides Moya on 11-12-2021 Glucose [Mass/Vol] 130 mg/dL 70-100 [facility] Comment on above: ADA recommended refe rence range Random Glucose Reference Range is dependent on time and content of last meal. Glucose of more than 200 mg/dL in a nonstressed, ambulatory subject supports the diagnosis of Diabetes Mellitus. Serum or plasma potassium me asurement (moles/volume)Ordered By: Alcides Moya on 11-12-2021 Potassium [Moles/Vol] 3.9 mmol/L 3.5-5.1 [facility] Serum or plasma prealbumin m easurement (mass/volume)Ordered By: Alcides Moya on 11-12-2021 Prealbumin [Mass/Vol] 21.7 mg/dL 18.0-38.0 [facility] Serum or plasma sodium measu rement (moles/volume)Ordered By: Alcides Moya on 11-12-2021 Sodium [Moles/Vol] 139 mmol/L 136-146 [facility] Serum or plasma total biliru bin measurement (mass/volume)Ordered By: Alcides Moya on 11-12-2021 Bilirubin [Mass/Vol] 0.8 mg/dL 0.3-1.2 [facility] Serum or plasma total carbon dioxide measurement (moles/volume)Ordered By: Aclides Moya on 11-12-2021 CO2 [Moles/Vol] 31.0 mmol/L 22.0-30.0 [facility] Serum or plasma urea nitroge n measurement (mass/volume)Ordered By: Alcides Moya on 11-12-2021 Urea nitrogen [Mass/Vol] 8 mg/dL 9-23 [facility] Glucose Glucometer (BldC) [M ass/Vol]Ordered By: Gaye Claire on 11-11-2021 Glucose [Mass/Vol] 127 mg/dL [facility] Comment on above: Random Glucose Refer ence Range is dependent on time and content of last meal. Glucose of more than 200 mg/dL in a nonstressed, ambulatory subject supports the diagnosis of Diabetes Mellitus. Laboratory - CoagulationOrde red By: Enrrique Mota on 11-11-2021 PT Coag (PPP) [Time] 31.5 s 9.0-12.9 [facility] No Panel InformationOrdered By: Gaye Claire on 11-11-2021 Bedside Glucose Comment Glu2: cleaned meter [facility] Platelet poor plasma interna tional normalized ratio (INR) by coagulation assay (relatOrdered By: Enrrique Mota on 11-11-2021 INR Coag (PPP) [Relative time] 2.7 {INR} [facility] Comment on above: INR [...] with mechanical heart valves: 3 - 4.5 Basophils Auto (Bld) [#/Vol] Ordered By: Faustina Barr on 11-06-2021 Basophils (Bld) [#/Vol] 0.0 10*3/uL 0.0-0.2 [facility] Basophils/100 WBC Auto (Bld) Ordered By: Faustina Barr on 11-06-2021 Basophils/100 WBC (Bld) 0.5 % . [facility] Blood hemoglobin measurement (mass/volume)Ordered By: Faustina Barr on 11-06-2021 Hemoglobin (Bld) [Mass/Vol] 11.8 g/dL 11.8-15.4 [facility] Blood leukocytes automated c ount (number/volume)Ordered By: Faustina Barr on 11-06-2021 WBC (Bld) [#/Vol] 5.6 10*3/uL 4.5-11.0 [facility] Creatinine and Glomerular fi ltration rate.predicted panel (S/P/Bld)Ordered By: Faustina Barr on 11-06-2021 Creatinine [Mass/Vol] 0.63 mg/dL 0.44-1.03 [facility] Eosinophils Auto (Bld) [#/Vo l]Ordered By: Faustina Barr on 11-06-2021 Eosinophils (Bld) [#/Vol] 0.2 10*3/uL 0.0-0.45 [facility] Eosinophils/100 WBC Auto (Bl d)Ordered By: Faustina Barr on 11-06-2021 Eosinophils/100 WBC (Bld) 3.9 % . [facility] Erythrocyte distribution wid th Auto (RBC) [Ratio]Ordered By: Faustina Barr on 11-06-2021 Erythrocyte distribution width (RBC) [Ratio] 16.6 % 11.9-15.3 [facility] Estimated glomerular filtrat ion rate (GFR) non- AmericanOrdered By: Faustina Barr on 11-06-2021 GFR/1.73 sq M.predicted among non-blacks MDRD (S/P/Bld) [Vol rate/Area] > 60 mL/Min [facility] Hematocrit Auto (Bld) [Volum e fraction]Ordered By: Faustina Barr on 11-06-2021 Hematocrit (Bld) [Volume fraction] 37.0 % 34.0-46.4 [facility] Laboratory - Hematology and Cell countsOrdered By: Faustina Barr on 11-06-2021 Nucleated RBC/100 WBC (Bld) [Ratio] 0.1 % 0-0.5 [facility] Lymphocytes Auto (Bld) [#/Vo l]Ordered By: Faustina Barr on 11-06-2021 Lymphocytes (Bld) [#/Vol] 2.1 10*3/uL 1.00-4.8 [facility] Lymphocytes/100 WBC Auto (Bl d)Ordered By: Faustina Barr on 11-06-2021 Lymphocytes/100 WBC (Bld) 37.6 % . [facility] MCH Auto (RBC) [Entitic mass ]Ordered By: Faustina Barr on 11-06-2021 MCH (RBC) [Entitic mass] 28.8 pg 24.7-34.3 [facility] MCHC Auto (RBC) [Mass/Vol]Or dered By: Faustina Barr on 11-06-2021 MCHC (RBC) [Mass/Vol] 31.9 g/dL 32.0-35.0 [facility] MCV Auto (RBC) [Entitic vol] Ordered By: Faustina Barr on 11-06-2021 MCV (RBC) [Entitic vol] 90.5 fL 80-100 [facility] Monocytes Auto (Bld) [#/Vol] Ordered By: Faustina Barr on 11-06-2021 Monocytes (Bld) [#/Vol] 0.7 10*3/uL 0.0-0.8 [facility] Monocytes/100 WBC Auto (Bld) Ordered By: Faustina Barr on 11-06-2021 Monocytes/100 WBC (Bld) 12.7 % . [facility] Neutrophils Auto (Bld) [#/Vo l]Ordered By: Faustina Barr on 11-06-2021 Neutrophils (Bld) [#/Vol] 2.5 10*3/uL 1.8-7.7 [facility] Neutrophils/100 WBC Auto (Bl d)Ordered By: Faustina Barr on 11-06-2021 Neutrophils/100 WBC (Bld) 45.3 % . [facility] No Panel InformationOrdered By: Faustina Barr on 11-06-2021 Estimated GFR () > 60 mL/Min [facility] Comment on above: GFR estimated refere nce range: According to KDOQI guidelines, <60 ml/min/1.73m2 is sufficient to diagnose a patient with chronic kidney disease. Pharmacy Creatinine Clearance (Chem 65.08 [facility] Platelet mean volume Auto (B ld) [Entitic vol]Ordered By: Faustina Barr on 11-06-2021 Platelet mean volume (Bld) [Entitic vol] 8.3 fL 6.3-10.7 [facility] Platelets Auto (Bld) [#/Vol] Ordered By: Faustina Barr on 11-06-2021 Platelets (Bld) [#/Vol] 298 10*3/uL 150-450 [facility] RBC Auto (Bld) [#/Vol]Ordere d By: Faustina Barr on 11-06-2021 RBC (Bld) [#/Vol] 4.09 10*6/uL 3.60-5.00 [facility] Serum or plasma calcium alondra urement (mass/volume)Ordered By: Faustina Barr on 11-06-2021 Calcium [Mass/Vol] 9.1 mg/dL 8.2-10.2 [facility] Serum or plasma chloride link surement (moles/volume)Ordered By: Faustina Barr on 11-06-2021 Chloride [Moles/Vol] 98 mmol/L 95-114 [facility] Serum or plasma glucose alondra urement (mass/volume)Ordered By: Faustina Barr on 11-06-2021 Glucose [Mass/Vol] 159 mg/dL 70-100 [facility] Comment on above: ADA recommended refe rence [...] on 11-06-2021 Potassium [Moles/Vol] 3.3 mmol/L 3.5-5.1 [facility] Serum or plasma sodium measu rement (moles/volume)Ordered By: Faustina Barr on 11-06-2021 Sodium [Moles/Vol] 140 mmol/L 136-146 [facility] Serum or plasma total carbon dioxide measurement (moles/volume)Ordered By: Faustina Barr on 11-06-2021 CO2 [Moles/Vol] 33.3 mmol/L 22.0-30.0 [facility] Serum or plasma urea nitroge n measurement (mass/volume)Ordered By: Faustina Barr on 11-06-2021 Urea nitrogen [Mass/Vol] 6 mg/dL 9-23 [facility] Urine culture routineOrdered By: Marvin Peter on 11-06-2021 Bacteria identified Cx Nom (U) Escherichia coli [facility] Albumin [Mass/volume] in Ser um or PlasmaOrdered By: Marvin Peter on 11-04-2021 Albumin [Mass/Vol] 3.4 g/dL 3.2-5.5 [facility] Automated erythrocytes count in urine sediment (number/area)Ordered By: Marvin Peter on 11-04-2021 RBC Auto (Urine sed) [#/Area] Innumerable [HPF] 0-4 [facility] Automated leukocytes count i n urine sediment (number/area)Ordered By: Marvin Peter on 11-04-2021 WBC Auto (Urine sed) [#/Area] 50-100 [HPF] 0-4 [facility] Automated urine hyaline cast s count (number/volume)Ordered By: Marvin Peter on 11-04-2021 Hyaline casts Auto (U) [#/Vol] Rare [LPF] 0-1 [facility] Bilirubin Test strip Ql (U)O rdered By: Marvin Peter on 11-04-2021 Bilirubin Ql (U) Negative Negative [facility] COVID CepheidOrdered By: Artie Peter on 11-04-2021 SARS-CoV-2 (COVID-19) Ab IA Ql Negative Negative [facility] Comment on above: This is a duplicate [employer] Xpert Xpress CoV-2/Flu/RSV Plus RNA by RT-PCR result to be used for statistical tracking purpose only. SARS-CoV-2 (COVID-19) RNA PIPE+probe Ql (Unsp spec) [facility] COVID-19 SOFIAOrdered By: Sina Peter on 11-04-2021 SARS-CoV+SARS-CoV-2 (COVID-19) Ag IA.rapid Ql (Resp) Negative Negative [facility] Comment on above: This is a duplicate [employer] SARS Antigen ([place]ONT) result to be used for statistical tracking purpose only. Casts typing in urine sedime nt by light microscopyOrdered By: Marvin Peter on 11-04-2021 Casts LM Nom (Urine sed) None seen [LPF] None Seen [facility] Color Auto (U)Ordered By: Sina red Brittani on 11-04-2021 Color (U) Yellow Yellow [facility] Globulin Calc (S) [Mass/Vol] Ordered By: Marvin Peter on 11-04-2021 Globulin (S) [Mass/Vol] 3.7 g/dL [facility] Ketones Auto test strip (U) [Mass/Vol]Ordered By: Marvin Peter on 11-04-2021 Ketones (U) [Mass/Vol] 1+ Negative [facility] Nitrite Test strip Ql (U)Ord ered By: Marvin Peter on 11-04-2021 Nitrite Ql (U) Positive Negative [facility] No Panel InformationOrdered By: Enrrique Mota on 11-04-2021 25-Hydroxy Vitamin D Total 71.4 ng/mL 30-100 [facility] Comment on above: VITAMIN [...] 11-04-2021 Protein (U) [Mass/Vol] 30 mg/dL Negative [facility] Protein [Mass/volume] in Ser um or PlasmaOrdered By: Marvin Peter on 11-04-2021 Protein [Mass/Vol] 7.1 g/dL 6.1-7.9 [facility] Serum or plasma alanine engel otransferase measurement without P-5'-P (enzymatic activiOrdered By: Marvin Peter on 11-04-2021 ALT No additional P-5'-P [Catalytic activity/Vol] 7 U/L 10-60 [facility] Serum or plasma albumin/glob ulin mass ratioOrdered By: Marvin Peter on 11-04-2021 Albumin/Globulin [Mass ratio] 0.9 {ratio} [facility] Serum or plasma alkaline bouchra sphatase measurement (enzymatic activity/volume)Ordered By: Marvin Peter on 11-04-2021 ALP [Catalytic activity/Vol] 80 U/L 32-92 [facility] Serum or plasma aspartate am inotransferase measurement (enzymatic activity/volume)Ordered By: Marvin Peter on 11-04-2021 AST [Catalytic activity/Vol] 16 U/L 10-42 [facility] Serum or plasma total biliru bin measurement (mass/volume)Ordered By: Marvin Peter on 11-04-2021 Bilirubin [Mass/Vol] 1.2 mg/dL 0.3-1.2 [facility] Specific gravity Auto test s trip (U) [Rel density]Ordered By: Marvin Peter on 11-04-2021 Specific gravity (U) [Rel density] 1.029 1.001-1.03 0 [facility] Squamous epithelial cells de tection in urine sediment by light microscopyOrdered By: Marvin Peter on 11-04-2021 Epithelial cells.squamous LM Ql (Urine sed) 5-9 [HPF] 0-2 [facility] TSH DL <= 0.005 mIU/L QnOrde red By: Enrrique Mota on 11-04-2021 TSH Qn 2.09 m[IU]/L 0.45-5.33 [facility] Urine bacteria detection by automated methodOrdered By: Marvin Peter on 11-04-2021 Bacteria Auto Ql (U) 4+ None Seen [facility] Urine clarity by refractomet ry automatedOrdered By: Marvin Peter on 11-04-2021 Clarity Refractometry automated (U) Cloudy Clear [facility] Urine glucose measurement by automated test strip (mass/volume)Ordered By: Marvin Peter on 11-04-2021 Glucose Auto test strip (U) [Mass/Vol] Normal mg/dL Normal [facility] Urine hemoglobin detection b y automated test stripOrdered By: Marvin Peter on 11-04-2021 Hemoglobin Auto test strip Ql (U) 3+ Negative [facility] Urine leukocyte esterase det ection by automated test stripOrdered By: Marvin Peter on 11-04-2021 Leukocyte esterase Auto test strip Ql (U) 3+ Negative [facility] Urobilinogen Auto test strip (U) [Mass/Vol]Ordered By: Marvin Peter on 11-04-2021 Urobilinogen (U) [Mass/Vol] Normal mg/dL Normal [facility] pH Auto test strip (U)Ordere d By: Marvin Peter on 11-04-2021 pH (U) 5.5 [pH] 5.0-9.0 [facility] Prothrombin Time INRon 10-22 INR Coag (PPP) [Relative time] 4.5 {INR} [employer] Other Prothrombin Time INR [employer] Other Urine culture routineOrdered By: Alton Valderrama on 09-30-2021 Bacteria identified Cx Nom (U) Escherichia coli [facility] Prothrombin Time INRon 09-29 INR Coag (PPP) [Relative time] 3.3 {INR} [employer] Other Prothrombin Time INR [employer] Other Automated erythrocytes count in urine sediment (number/area)Ordered By: Alton Valderrama on 09-28-2021 RBC Auto (Urine sed) [#/Area] 10-19 [HPF] 0-4 [facility] Automated leukocytes count i n urine sediment (number/area)Ordered By: Alton Valderrama on 09-28-2021 WBC Auto (Urine sed) [#/Area] 20-49 [HPF] 0-4 [facility] Basophils Auto (Bld) [#/Vol] Ordered By: Alton Valderrama on 09-28-2021 Basophils (Bld) [#/Vol] 0.0 10*3/uL 0.0-0.2 [facility] Basophils/100 WBC Auto (Bld) Ordered By: Alton Valderrama on 09-28-2021 Basophils/100 WBC (Bld) 0.4 % . [facility] Bilirubin Test strip Ql (U)O rdered By: Alton Valderrama on 09-28-2021 Bilirubin Ql (U) Negative Negative [facility] Blood hemoglobin measurement (mass/volume)Ordered By: Alton Valderrama on 09-28-2021 Hemoglobin (Bld) [Mass/Vol] 12.3 g/dL 11.8-15.4 [facility] Blood leukocytes automated c ount (number/volume)Ordered By: Alton Valderrama on 09-28-2021 WBC (Bld) [#/Vol] 5.1 10*3/uL 4.5-11.0 [facility] Body fluid albumin measureme nt (mass/volume)Ordered By: Alton Valderrama on 09-28-2021 Albumin (Body fld) [Mass/Vol] 3.3 g/dL 3.2-5.5 [facility] Color Auto (U)Ordered By: Giuseppe Valderrama on 09-28-2021 Color (U) Yellow Yellow [facility] Creatinine and Glomerular fi ltration rate.predicted panel (S/P/Bld)Ordered By: Alton Valderrama on 09-28-2021 Creatinine [Mass/Vol] 0.67 mg/dL 0.44-1.03 [facility] Eosinophils Auto (Bld) [#/Vo l]Ordered By: Alton Valderrama on 09-28-2021 Eosinophils (Bld) [#/Vol] 0.0 10*3/uL 0.0-0.45 [facility] Eosinophils/100 WBC Auto (Bl d)Ordered By: Alton Valderrama on 09-28-2021 Eosinophils/100 WBC (Bld) 0.4 % . [facility] Erythrocyte distribution wid th Auto (RBC) [Ratio]Ordered By: Alton Valderrama on 09-28-2021 Erythrocyte distribution width (RBC) [Ratio] 15.9 % 11.9-15.3 [facility] Estimated glomerular filtrat ion rate (GFR) non- AmericanOrdered By: Alton Valderrama on 09-28-2021 GFR/1.73 sq M.predicted among non-blacks MDRD (S/P/Bld) [Vol rate/Area] > 60 mL/Min [facility] Globulin Calc (S) [Mass/Vol] Ordered By: Alton Valderrama on 09-28-2021 Globulin (S) [Mass/Vol] 3.6 g/dL [facility] Hematocrit Auto (Bld) [Volum e fraction]Ordered By: Alton Valderrama on 09-28-2021 Hematocrit (Bld) [Volume fraction] 37.5 % 34.0-46.4 [facility] Ketones Auto test strip (U) [Mass/Vol]Ordered By: Alton Valderrama on 09-28-2021 Ketones (U) [Mass/Vol] 2+ Negative [facility] Laboratory - Hematology and Cell countsOrdered By: Alton Valderrama on 09-28-2021 Nucleated RBC/100 WBC (Bld) [Ratio] 0.0 % 0-0.5 [facility] Laboratory - UrinalysisOrder ed By: Alton Valderrama on 09-28-2021 Hyaline casts LM Ql (Urine sed) 0-8 [LPF] 0-8 [facility] Lymphocytes Auto (Bld) [#/Vo l]Ordered By: Alton Valderrama on 09-28-2021 Lymphocytes (Bld) [#/Vol] 0.8 10*3/uL 1.00-4.8 [facility] Lymphocytes/100 WBC Auto (Bl d)Ordered By: Alton Valderrama on 09-28-2021 Lymphocytes/100 WBC (Bld) 16.2 % . [facility] MCH Auto (RBC) [Entitic mass ]Ordered By: Alton aVlderrama on 09-28-2021 MCH (RBC) [Entitic mass] 29.5 pg 24.7-34.3 [facility] MCHC Auto (RBC) [Mass/Vol]Or dered By: Alton Valderrama on 09-28-2021 MCHC (RBC) [Mass/Vol] 32.7 g/dL 32.0-35.0 [facility] MCV Auto (RBC) [Entitic vol] Ordered By: Alton Valderrama on 09-28-2021 MCV (RBC) [Entitic vol] 90.3 fL 80-100 [facility] Monocytes Auto (Bld) [#/Vol] Ordered By: Alton Valderrama on 09-28-2021 Monocytes (Bld) [#/Vol] 0.7 10*3/uL 0.0-0.8 [facility] Monocytes/100 WBC Auto (Bld) Ordered By: Alton Valderrama on 09-28-2021 Monocytes/100 WBC (Bld) 13.9 % . [facility] Neutrophils Auto (Bld) [#/Vo l]Ordered By: Alton Valderrama on 09-28-2021 Neutrophils (Bld) [#/Vol] 3.5 10*3/uL 1.8-7.7 [facility] Neutrophils/100 WBC Auto (Bl d)Ordered By: Alton Valderrama on 09-28-2021 Neutrophils/100 WBC (Bld) 69.1 % . [facility] Nitrite Test strip Ql (U)Ord ered By: Alton Valderrama on 09-28-2021 Nitrite Ql (U) Positive Negative [facility] No Panel InformationOrdered By: Alton Valderrama on 09-28-2021 Estimated GFR () > 60 mL/Min [facility] Comment on above: GFR estimated refere nce range: According to KDOQI guidelines, <60 ml/min/1.73m2 is sufficient to diagnose a patient with chronic kidney disease. Pharmacy Creatinine Clearance (Chem 66.85 [facility] Platelet mean volume Auto (B ld) [Entitic vol]Ordered By: Alton Valderrama on 09-28-2021 Platelet mean volume (Bld) [Entitic vol] 8.6 fL 6.3-10.7 [facility] Platelets Auto (Bld) [#/Vol] Ordered By: Alton Valderrama on 09-28-2021 Platelets (Bld) [#/Vol] 154 10*3/uL 150-450 [facility] Protein Auto test strip (U) [Mass/Vol]Ordered By: Alton Valderrama on 09-28-2021 Protein (U) [Mass/Vol] Negative Negative [facility] Protein [Mass/volume] in Ser um or PlasmaOrdered By: Alton Valderrama on 09-28-2021 Protein [Mass/Vol] 6.9 g/dL 6.1-7.9 [facility] RBC Auto (Bld) [#/Vol]Ordere d By: Alton Valderrama on 09-28-2021 RBC (Bld) [#/Vol] 4.16 10*6/uL 3.60-5.00 [facility] Serum or plasma alanine engel otransferase measurement without P-5'-P (enzymatic activiOrdered By: Alton Valderrama on 09-28-2021 ALT No additional P-5'-P [Catalytic activity/Vol] 7 U/L 10-60 [facility] Serum or plasma albumin/glob ulin mass ratioOrdered By: Alton Valderrama on 09-28-2021 Albumin/Globulin [Mass ratio] 0.9 {ratio} [facility] Serum or plasma alkaline bouchra sphatase measurement (enzymatic activity/volume)Ordered By: Alton Valderrama on 09-28-2021 ALP [Catalytic activity/Vol] 51 U/L 32-92 [facility] Serum or plasma aspartate am inotransferase measurement (enzymatic activity/volume)Ordered By: Alton Valderrama on 09-28-2021 AST [Catalytic activity/Vol] 20 U/L 10-42 [facility] [facility] Serum or plasma calcium alodnra urement (mass/volume)Ordered By: Alton Valderrama on 09-28-2021 Calcium [Mass/Vol] 8.9 mg/dL 8.2-10.2 [facility] Serum or plasma chloride link surement (moles/volume)Ordered By: Alton Valderrama on 09-28-2021 Chloride [Moles/Vol] 95 mmol/L 95-114 [facility] Serum or plasma glucose alondra urement (mass/volume)Ordered By: Alton Valderrama on 09-28-2021 Glucose [Mass/Vol] 146 mg/dL 70-100 [facility] Comment on above: ADA recommended refe rence range Random Glucose Reference Range is dependent on time and content of last meal. Glucose of more than 200 mg/dL in a nonstressed, ambulatory subject supports the diagnosis of Diabetes Mellitus. Serum or plasma potassium me asurement (moles/volume)Ordered By: Alton Valderrama on 09-28-2021 Potassium [Moles/Vol] 3.5 mmol/L 3.5-5.1 [facility] Serum or plasma sodium measu rement (moles/volume)Ordered By: Alton Valderrama on 09-28-2021 Sodium [Moles/Vol] 136 mmol/L 136-146 [facility] Serum or plasma total biliru bin measurement (mass/volume)Ordered By: Alton Valderrama on 09-28-2021 Bilirubin [Mass/Vol] 1.0 mg/dL 0.3-1.2 [facility] Serum or plasma total carbon dioxide measurement (moles/volume)Ordered By: Alton Valderrama on 09-28-2021 CO2 [Moles/Vol] 29.5 mmol/L 22.0-30.0 [facility] Serum or plasma urea nitroge n measurement (mass/volume)Ordered By: Alton Valderrama on 09-28-2021 Urea nitrogen [Mass/Vol] 7 mg/dL 9-23 [facility] Specific gravity Auto test s trip (U) [Rel density]Ordered By: Alton Valderrama 09-28-2021 Specific gravity (U) [Rel density] 1.013 1.001-1.03 0 [facility] Squamous epithelial cells de tection in urine sediment by light microscopyOrdered By: lAton Valderrama on 09-28-2021 Epithelial cells.squamous LM Ql (Urine sed) None seen [HPF] 0-2 [facility] Urine bacteria detection by automated methodOrdered By: Alton Valderrama on 09-28-2021 Bacteria Auto Ql (U) 3+ None Seen [facility] Urine clarity by refractomet ry automatedOrdered By: Alton Valderrama on 09-28-2021 Clarity Refractometry automated (U) Cloudy Clear [facility] Urine glucose measurement by automated test strip (mass/volume)Ordered By: Alton Valderrama on 09-28-2021 Glucose Auto test strip (U) [Mass/Vol] Normal mg/dL Normal [facility] Urine hemoglobin detection b y automated test stripOrdered By: Alton Valderrama on 09-28-2021 Hemoglobin Auto test strip Ql (U) 2+ Negative [facility] Urine leukocyte esterase det ection by automated test stripOrdered By: Alton Valderrama on 09-28-2021 Leukocyte esterase Auto test strip Ql (U) 2+ Negative [facility] Urobilinogen Auto test strip (U) [Mass/Vol]Ordered By: Alton Valderrama on 09-28-2021 Urobilinogen (U) [Mass/Vol] Normal mg/dL Normal [facility] Yeast detection in urine sed iment by light microscopyOrdered By: Alton Valderrama on 09-28-2021 Yeast LM Ql (Urine sed) None seen [HPF] None Seen [facility] pH Auto test strip (U)Ordere d By: Alton Valderrama on 09-28-2021 pH (U) 6.5 [pH] 5.0-9.0 [facility] Prothrombin Time INRon 08-26 INR Coag (PPP) [Relative time] 2.1 {INR} [employer] Other Prothrombin Time INR [facility] [employer] Other Prothrombin Time INRon 08-05 INR Coag (PPP) [Relative time] 2.3 {INR} [employer] Other Prothrombin Time INR [facility] [employer] Other Complete Blood Count with Au to Diffon 07-16-2021 Basophils (Bld) [#/Vol] 0.02 10*3/uL Normal 0.00-0.[address] [facility] [employer] Comment on above: Performed By: #### L IPD, TSH, CMP, VITD, CBCAD #### [facility] [address] [place], [place] [id number] Basophils/100 WBC (Bld) 0.3 % Normal [facility] [employer] Comment on above: Performed By: #### L IPD, TSH, CMP, VITD, CBCAD #### [facility] [address] [place], [place] [id number] Eosinophils (Bld) [#/Vol] 0.17 10*3/uL Normal 0.02-0.50 [facility] Specialist Comment on above: Performed By: #### L IPD, TSH, CMP, VITD, CBCAD #### [facility] [address] [place], [place] [id number] Eosinophils/100 WBC (Bld) 2.8 % Normal [facility] Specialist Comment on above: Performed By: #### L IPD, TSH, CMP, VITD, CBCAD #### [facility] [address] [place], [place] [id number] Erythrocyte distribution width (RBC) [Ratio] 15.0 % Normal 11.0-15.[address] [facility] [employer] Comment on above: Performed By: #### L IPD, TSH, CMP, VITD, CBCAD #### [facility] [address] [place], [place] [id number] Hematocrit (Bld) [Volume fraction] 39.2 % Normal 35.0-47.[address] [facility] [employer] Engineer Comment on above: Performed By: #### L IPD, TSH, CMP, VITD, CBCAD #### [facility] [address] [place], [place] [id number] Hemoglobin (Bld) [Mass/Vol] 12.0 g/dL Normal 11.6-15.[address] [facility] [employer] Research Engineer Comment on above: Performed By: #### L IPD, TSH, CMP, VITD, CBCAD #### [facility] [address], [place] [id number] Lymphocytes (Bld) [#/Vol] 1.7 10*3/uL Normal 0.9-3.[address] [facility] [employer] Research Engineer Comment on above: Performed By: #### L IPD, TSH, CMP, VITD, CBCAD #### [facility] [address], [place] [id number] Lymphocytes/100 WBC (Bld) 27.5 % Normal [facility] Specialist Comment on above: Performed By: #### L IPD, TSH, CMP, VITD, CBCAD #### [facility] [address] [place], [place] [id number] MCH (RBC) [Entitic mass] 29.4 pg Normal 27.0-33.0 [facility] Comment on above: Performed By: #### L IPD, TSH, CMP, VITD, CBCAD #### [facility] [address], [place] [id number] MCHC (RBC) [Mass/Vol] 30.6 g/dL Low 32.0-36.0 [facility] Comment on above: Performed By: #### L IPD, TSH, CMP, VITD, CBCAD #### [facility] [address] [place], [place] [id number] MCV (RBC) [Entitic vol] 96 fL Normal 80-100 [facility] Comment on above: Performed By: #### L IPD, TSH, CMP, VITD, CBCAD #### [facility] [address] [place], [place] [id number] Monocytes (Bld) [#/Vol] 0.6 10*3/uL Normal 0.2-0.9 [facility] Comment on above: Performed By: #### L IPD, TSH, CMP, VITD, CBCAD #### [facility] [address], [place] [id number] Monocytes/100 WBC (Bld) 10.5 % Normal [facility] Comment on above: Performed By: #### L IPD, TSH, CMP, VITD, CBCAD #### [facility] [address], [place] [id number] Neutrophils (Bld) [#/Vol] 3.6 10*3/uL Normal 1.5-7.8 [facility] Comment on above: Performed By: #### L IPD, TSH, CMP, VITD, CBCAD #### [facility] [address], [place] [id number] Neutrophils/100 WBC (Bld) 58.6 % Normal [facility] Comment on above: Performed By: #### L IPD, TSH, CMP, VITD, CBCAD #### [facility] [address] [place], [place] [id number] Platelet mean volume (Bld) [Entitic vol] 11.40 fL Normal 7.50-12.50 [facility] [employer] Prevention Research Engineer Comment on above: Performed By: #### L IPD, TSH, CMP, VITD, CBCAD #### [facility] [address] [place], [place] [id number] Platelets (Bld) [#/Vol] 193 10*3/uL Normal 140-400 [facility] Specialist Comment on above: Performed By: #### L IPD, TSH, CMP, VITD, CBCAD #### [facility] [address], [place] [id number] RBC (Bld) [#/Vol] 4.08 10*6/uL Normal 3.90-5.20 [facility] Specialist Comment on above: Performed By: #### L IPD, TSH, CMP, VITD, CBCAD #### [facility] [address], [place] [id number] RDW-SD 52.8 fL High 37.0-50.0 [facility] Specialist Comment on above: Performed By: #### L IPD, TSH, CMP, VITD, CBCAD #### [facility] [address] [place], [place] [id number] WBC (Bld) [#/Vol] 6.1 10*3/uL Normal 3.8-11.0 [facility] [employer] Prevention Research Engineer Comment on above: Performed By: #### L IPD, TSH, CMP, VITD, CBCAD #### [facility] [address] [place], [place] [id number] [facility] 07-16-2021 Albumin [Mass/Vol] 4.1 g/dL Normal 3.6-5.1 [facility] [employer] Research Engineer Comment on above: Performed By: #### L IPD, TSH, CMP, VITD, CBCAD #### [facility] [address] [place], [place] [id number] Albumin/Globulin [Mass ratio] 1.5 {ratio} Normal 1.0-2.5 [facility] Specialist Comment on above: Performed By: #### L IPD, TSH, CMP, VITD, CBCAD #### [facility] [address] [place], [place] [id number] ALP [Catalytic activity/Vol] 104 U/L Normal 35-119 [facility] Comment on above: Performed By: #### L IPD, TSH, CMP, VITD, CBCAD #### [facility] [address], [place] [id number] ALT [Catalytic activity/Vol] 7 U/L Normal 6-33 [facility] Comment on above: Result Comment: 02/11 Female reference range changed. Performed By: #### L IPD, TSH, CMP, VITD, CBCAD #### [facility] [address] [place], [place] [id number] Anion gap [Moles/Vol] 18 mmol/L Normal 12-20 [facility] Comment on above: Result Comment: Effe ctive 03/19/2019 reference range changed. Performed By: #### L IPD, TSH, CMP, VITD, CBCAD #### [facility] [address] [place], [place] [id number] AST [Catalytic activity/Vol] 16 U/L Normal 9-34 [facility] Comment on above: Performed By: #### L IPD, TSH, CMP, VITD, CBCAD #### [facility] [address], [place] [id number] Bilirubin [Mass/Vol] 0.92 mg/dL Normal 0.30-1.20 [facility] Comment on above: Performed By: #### L IPD, TSH, CMP, VITD, CBCAD #### [facility] [address], [place] [id number] BUN/CREA 29 Ratio High 6-22 [facility] Comment on above: Performed By: #### L IPD, TSH, CMP, VITD, CBCAD #### [facility] [address] [facility] [place] [id number] Calcium [Mass/Vol] 9.5 mg/dL Normal 8.6-10.2 [facility] Comment on above: Performed By: #### L IPD, TSH, CMP, VITD, CBCAD #### [facility] [address] [place], [place] [id number] Chloride [Moles/Vol] 99 mmol/L Normal 98-107 [place] [employer] Comment on above: Performed By: #### L IPD, TSH, CMP, VITD, CBCAD #### [facility] [address], [place] [id number] CO2 [Moles/Vol] 26 mmol/L Normal 20-31 [facility] Comment on above: Performed By: #### L IPD, TSH, CMP, VITD, CBCAD #### [facility] [address] [place], [place] [id number] Creatinine [Mass/Vol] 0.5 mg/dL Low 0.6-1.4 [facility] Comment on above: Performed By: #### L IPD, TSH, CMP, VITD, CBCAD #### [facility] [address], [place] [id number] eGFRAA 135 mL/min/1.73m2 Normal >60 [facility] Comment on above: Performed By: #### L IPD, TSH, CMP, VITD, CBCAD #### [facility] [address] [place], [place] [id number] eGFRNAA 111 mL/min/1.73m2 Normal >60 [facility] Comment on above: Performed By: #### L IPD, TSH, CMP, VITD, CBCAD #### [facility] [address] [place], [place] [id number] Globulin (S) [Mass/Vol] 2.7 g/dL Normal 1.9-3.7 [facility] Comment on above: Performed By: #### L IPD, TSH, CMP, VITD, CBCAD #### [facility] [address] [place], [place] [id number] Glucose [Mass/Vol] 222 mg/dL High 65-99 [facility] Comment on above: Result Comment: For FASTING Glucose --- ADA reference ranges: Normal 65-99 mg/dl Prediabetes 100-125 Diabetes >/= 126 Performed By: #### L IPD, TSH, CMP, VITD, CBCAD #### [facility] [address] [place], [place] [id number] Potassium [Moles/Vol] 4.7 mmol/L Normal 3.5-5.5 [facility] Specialist Comment on above: Performed By: #### L IPD, TSH, CMP, VITD, CBCAD #### [facility] [address] [place], [place] [id number] Protein [Mass/Vol] 6.8 g/dL Normal 6.1-8.1 [place] [employer] Comment on above: Performed By: #### L IPD, TSH, CMP, VITD, CBCAD #### [facility] [address], [place] [id number] Sodium [Moles/Vol] 138 mmol/L Normal 135-146 Marcia [place] [employer] Comment on above: Performed By: #### L IPD, TSH, CMP, VITD, CBCAD #### [facility] [address], [place] [id number] Urea nitrogen [Mass/Vol] 15 mg/dL Normal 7-[address] [facility] [employer] Research Engineer Comment on above: Performed By: #### L IPD, TSH, CMP, VITD, CBCAD #### [facility] [address] [place], [place] [id number] Hemoglobin A1Con 07-16-2021 EAG 194.38 Normal [facility] Specialist Comment on above: Performed By: #### A 1C #### [facility] [address], [place] [id number] HbA1c (Bld) [Mass fraction] 8.4 % High 4.0-6.[address] [facility] [employer] Research Engineer Comment on above: Performed By: #### A 1C #### [facility] [address] [place], [place] [id number] Lipid Panelon 07-16-2021 Cholesterol [Mass/Vol] 172 mg/dL Normal 125-[address] [facility] [employer] Research Engineer Comment on above: Result Comment: Low risk < 200mg/dL Borderline risk 201-239 mg/dl High risk > or equal to 240 Performed By: #### L IPD, TSH, CMP, VITD, CBCAD #### [facility] [address] [place], [place] [id number] Cholesterol in HDL [Mass/Vol] 57 mg/dL Normal >[address] [facility] [employer] Research Engineer Comment on above: Result Comment: High Cardiovascular Risk HDL <40 mg/dL Low Cardiovascular Risk HDL > or equal to 60 mg/dl Performed By: #### L IPD, TSH, CMP, VITD, CBCAD #### [facility] [address] [place], [place] [id number] Cholesterol in LDL [Mass/Vol] 88 mg/dL Normal [facility] Specialist Comment on above: Result Comment: LDL ATP III CLASSIFICATION LDL less than 100 mg/dl Optimal LDL 100-129 mg/dl Near or above optimal LDL 130-159 Borderline high LDL 160-189 High LDL greater than 189 mg/dl Very High Performed By: #### L IPD, TSH, CMP, VITD, CBCAD #### [facility] [address] [place], [place] [id number] Cholesterol in VLDL [Mass/Vol] 27 mg/dL Normal [facility] [employer] Research Engineer Comment on above: Performed By: #### L IPD, TSH, CMP, VITD, CBCAD #### [facility] [address] [place], [place] [id number] Cholesterol.total/Cho lesterol in HDL [Mass ratio] 3 {ratio} Normal [facility] Specialist Comment on above: Performed By: #### L IPD, TSH, CMP, VITD, CBCAD #### [facility] [address] [place], [place] [id number] Triglyceride [Mass/Vol] 133 mg/dL Normal 30-[address] [facility] [employer] Engineer Comment on above: Result Comment: TRIG ATPIII CLASSIFICATIONS TRIG less than 150 mg/dl Normal TRIG 150-199 mg/dl Borderline High TRIG 200-500 mg/dl High TRIG greather than 500 mg/dl Very High Performed By: #### L IPD, TSH, CMP, VITD, CBCAD #### [facility] [address] [place], [place] [id number] TSHon 07-16-2021 TSH 1.480 uIU/mL Normal 0.400-4.50 0 [facility] Specialist Comment on above: Performed By: #### L IPD, TSH, CMP, VITD, CBCAD #### [facility] [address] [place], [place] [id number] Vitamin B12on 07-16-2021 Cobalamin (Vitamin B12) [Mass/Vol] 1009 pg/mL High 211-946 [facility] Specialist Comment on above: Performed By: #### B 12 #### [facility] [address] [place], [place] [id number] Vitamin D 25-OHon 07-16-2021 VIT D 25 OH 56 ng/ml Normal >[address] [facility] [employer] Prevention Research Engineer Comment on above: Result Comment: Tamy min D Status Deficiency <20 ng/mL Insufficiency 20-29 ng/mL Optimal 30-100 ng/mL Possible Toxicity >=150 ng/mL Performed By: #### L IPD, TSH, CMP, VITD, CBCAD #### [facility] [address] [place], [place] [id number] Prothrombin Time INRon 06-10 INR Coag (PPP) [Relative time] 5.2 {INR} [employer] Other Prothrombin Time INR [employer] Other Prothrombin Time INRon 05-26 INR Coag (PPP) [Relative time] 3.9 {INR} [employer] Other Prothrombin Time INR [employer] Other Prothrombin Time INRon 03-25 INR Coag (PPP) [Relative time] 3.2 {INR} [employer] Other Prothrombin Time INR [employer] Other Prothrombin Time INRon 02-25 INR Coag (PPP) [Relative time] 1.9 {INR} [employer] Other Prothrombin Time INR [employer] Other Prothrombin Time INRon 01-28 INR Coag (PPP) [Relative time] 2.2 {INR} [employer] Other Prothrombin Time INR [employer] Other Prothrombin Time INRon 12-10 INR Coag (PPP) [Relative time] 2.4 {INR} [employer] Other Prothrombin Time INR [employer] Other Office Visit (Neuro-Movement -PD)on 11-01-2017 Office Visit (Wurws-Etlmcdlm-DJ) History of Present IllnessALTON BARKER is here [...] asleep and no acting out of dreams. [place] Sleepiness Scale is 14. She reports concern [...] MG Oral Tablet Vitals Vital Signs Recorded: [id number] 01:33PMHeart [id number], [id number], [id number] lb 1 ozBMI [id number] Calculated2.27 Physical ExamConstitutional: General appearance: no acute [...] Transmission to [facility]; Last Updated By: SystemCrystal IS; 10/26/2017 2:12:16 PM Provider ImpressionsShe is a [...] and treatment options. 25 minutes was spent [id number] in the visit. Patient Discussion/SummaryI am recommending starting Sinemet 0.5 tablets three times daily for 1 week with meals and then increase the first dose to 1 tablet. Follow up in 3 months. Signatures Electronically signed by : Tyree Perez MD; Nov 01 2017 8:36AM EST (Author) Normal [employer] Vital Signs Date Time Vital Sign Value Performing Clinician Facility 02-21-2024 13:08-0500 Body mass index (BMI) [Ratio] 36.64 kg/m2 Mac Villasenor REGIONAL OFFICE COORDINATOR Work Phone: [facility] 02-21-2024 13:08-0500 Body weight 102.97 kg Mac Hamilton REGIONAL OFFICE COORDINATOR Work Phone: [facility] 02-21-2024 13:08-0500 Diastolic blood pressure 70 mm[Hg] Mac Hamilton REGIONAL OFFICE COORDINATOR Work Phone: [facility] 02-21-2024 13:08-0500 Heart rate 94 /min Mac Hamilton REGIONAL OFFICE COORDINATOR Work Phone: [facility] 02-21-2024 13:08-0500 SaO2% (BldA) [Mass fraction] 99 % Mac Hamilton REGIONAL OFFICE COORDINATOR Work Phone: [facility] 02-21-2024 13:08-0500 Systolic blood pressure 124 mm[Hg] Mac Villasenor REGIONAL OFFICE COORDINATOR Work Phone: [facility] 12-05-2023 13:39-0400 Body height 167.6 cm Lis Gillchelar REGIONAL OFFICE COORDINATOR Work Phone: [facility] 12-05-2023 13:39-0400 Body mass index (BMI) [Ratio] 38.58 kg/m2 Lis Gloriamor REGIONAL OFFICE COORDINATOR Work Phone: [facility] 12-05-2023 13:39-0400 Body weight 108.41 kg Lis Gloriamor REGIONAL OFFICE COORDINATOR Work Phone: [facility] 12-05-2023 13:39-0400 Diastolic blood pressure 72 mm[Hg] Lis Gloriamor REGIONAL OFFICE COORDINATOR Work Phone: [facility] 12-05-2023 13:39-0400 Heart rate 95 /min Lis Gloriamor REGIONAL OFFICE COORDINATOR Work Phone: [facility] 12-05-2023 13:39-0400 SaO2% (BldA) [Mass fraction] 98 % Lis Gloriamor REGIONAL OFFICE COORDINATOR Work Phone: [facility] 12-05-2023 13:39-0400 Systolic blood pressure 118 mm[Hg] Lis Paez REGIONAL OFFICE COORDINATOR Work Phone: [facility] 11-23-2023 08:46-0400 Diastolic blood pressure 60 mm[Hg] Yuerong Hamilton REGIONAL OFFICE COORDINATOR Work Phone: [facility] 11-23-2023 08:46-0400 Systolic blood pressure 140 mm[Hg] Yuerong Hamilton REGIONAL OFFICE COORDINATOR Work Phone: [facility] 11-15-2023 13:36-0400 Body height 167.6 cm Yuerong Hamilton REGIONAL OFFICE COORDINATOR Work Phone: [facility] 11-15-2023 13:36-0400 Body mass index (BMI) [Ratio] 38.74 kg/m2 Yuerong Hamilton REGIONAL OFFICE COORDINATOR Work Phone: [facility] 11-15-2023 13:36-0400 Body weight 108.86 kg Yuerong Hamilton REGIONAL OFFICE COORDINATOR Work Phone: [facility] 11-15-2023 13:36-0400 Diastolic blood pressure 70 mm[Hg] Yuerong Hamilton REGIONAL OFFICE COORDINATOR Work Phone: [facility] 11-15-2023 13:36-0400 Heart rate 94 /min Yuerong Hamilton REGIONAL OFFICE COORDINATOR Work Phone: [facility] 11-15-2023 13:36-0400 SaO2% (BldA) [Mass fraction] 99 % Yuerong Hamilton REGIONAL OFFICE COORDINATOR Work Phone: [facility] 11-15-2023 13:36-0400 Systolic blood pressure 130 mm[Hg] Yuerong Hamilton REGIONAL OFFICE COORDINATOR Work Phone: [facility] 10-25-2023 13:24-0400 Body height 167.6 cm Gloria Perez APRN.CAUL DRESSER Work Phone: [facility] 10-25-2023 13:24-0400 Body mass index (BMI) [Ratio] 39.87 kg/m2 Gloria Perez APRN.CAUL DRESSER Work Phone: [facility] 10-25-2023 13:24-0400 Body weight 112.04 kg Gloria Perez PRESS ASSISTANT AND FEEDER.[employer]UL DRESSER Work Phone: [facility] Comment on above: Per pt. Did not get weighed 10-25-2023 13:24-0400 Diastolic blood pressure 76 mm[Hg] Gloria Perez PRESS ASSISTANT AND FEEDER.CAUL DRESSER Work Phone: [facility] 10-25-2023 13:24-0400 Heart rate 74 /min Gloria Perez PRESS ASSISTANT AND FEEDER.CAUL DRESSER Work Phone: [facility] 10-25-2023 13:24-0400 SaO2% (BldA) [Mass fraction] 99 % Gloria Perez PRESS ASSISTANT AND FEEDER.CAUL DRESSER Work Phone: [facility] 10-25-2023 13:24-0400 Systolic blood pressure 137 mm[Hg] Gloria Perez PRESS ASSISTANT AND FEEDER.CAUL DRESSER Work Phone: [facility] 06-23-2023 14:53-0400 Body height 167.6 cm Gloria Perez PRESS ASSISTANT AND FEEDER.CAUL DRESSER Work Phone: [facility] 06-23-2023 14:53-0400 Body weight 107.6 kg Gloria Perez PRESS ASSISTANT AND FEEDER.CAUL DRESSER Work Phone: [facility] 06-23-2023 14:53-0400 SaO2% (BldA) [Mass fraction] 99 % Gloria Perez PRESS ASSISTANT AND FEEDER.CAUL DRESSER Work Phone: [facility] 01-20-2023 14:52-0500 Body height 167.6 cm Gloria Perez PRESS ASSISTANT AND FEEDER.CAUL DRESSER Work Phone: [facility] 01-20-2023 14:52-0500 SaO2% (BldA) [Mass fraction] 98 % Gloria Perez PRESS ASSISTANT AND FEEDER.CAUL DRESSER Work Phone: [facility] 07-08-2022 14:54-0400 Body height 167.6 cm Gloria Perez PRESS ASSISTANT AND FEEDER.CAUL DRESSER Work Phone: [facility] 07-08-2022 14:54-0400 Body weight 85.14 kg Gloria Perez APRN.CAUL DRESSER Work Phone: [facility] 07-08-2022 14:54-0400 SaO2% (BldA) [Mass fraction] 98 % Gloria Chris GORDON.CAUL DRESSER Work Phone: [facility] 05-20-2022 09:30-0500 Diastolic blood pressure 60 mm[Hg] DO Honey Vaschak Work Phone: [facility] 05-20-2022 09:30-0500 Heart rate 89 /min DO Honey Vaschak Work Phone: [facility] 05-20-2022 09:30-0500 Systolic blood pressure 106 mm[Hg] DO Honey Vaschak Work Phone: [facility] 11-25-2021 16:00-0400 Body temperature 97.4 [degF] DO Honey Vaschak Work Phone: [facility] 11-25-2021 16:00-0400 Diastolic blood pressure 61 mm[Hg] DO Honey Vaschak Work Phone: [facility] 11-25-2021 16:00-0400 Heart rate 98 /min DO Honey Vaschak Work Phone: [facility] 11-25-2021 16:00-0400 Respiratory rate 16 /min DO Honey Vaschak Work Phone: [facility] 11-25-2021 16:00-0400 SaO2% (BldA) [Mass fraction] 98 % DO Honey Vaschak Work Phone: [facility] 11-25-2021 16:00-0400 Systolic blood pressure 96 mm[Hg] DO Honey Vaschak Work Phone: [facility] 11-24-2021 12:10-0400 Body height 167.64 cm DO Honey Vaschak Work Phone: [facility] 11-22-2021 06:00-0400 Body weight 92.8 kg DO Honey Vaschak Work Phone: [facility] 11-13-2021 21:44-0400 Body temperature 98.1 [degF] DO Honey Vaschak Work Phone: [facility] 11-13-2021 21:44-0400 Diastolic blood pressure 71 mm[Hg] DO Honey Vaschak Work Phone: [facility] 11-13-2021 21:44-0400 Heart rate 92 /min DO Honey Vaschak Work Phone: [facility] 11-13-2021 21:44-0400 Respiratory rate 18 /min DO Honey Vaschak Work Phone: [facility] 11-13-2021 21:44-0400 SaO2% (BldA) [Mass fraction] 98 % DO Honey Vaschak Work Phone: [facility] 11-13-2021 21:44-0400 Systolic blood pressure 112 mm[Hg] DO Honey Vaschak Work Phone: [facility] 11-12-2021 16:00-0400 Body temperature 97.6 [degF] DO Honey Vaschak Work Phone: [facility] 11-12-2021 16:00-0400 Diastolic blood pressure 63 mm[Hg] DO Honey Vaschak Work Phone: [facility] 11-12-2021 16:00-0400 Heart rate 96 /min DO Honey Vaschak Work Phone: [facility] 11-12-2021 16:00-0400 Respiratory rate 16 /min DO Honey Danilochak Work Phone: [facility] 11-12-2021 16:00-0400 SaO2% (BldA) [Mass fraction] 98 % DO Honey Vaschak Work Phone: [facility] 11-12-2021 16:00-0400 Systolic blood pressure 98 mm[Hg] DO Honey Vaschak Work Phone: [facility] 11-12-2021 10:30-0400 Body height 167.64 cm DO Honey Vaschak Work Phone: [facility] 11-11-2021 15:00-0400 Body weight 92.98 kg DO Honey Vaschak Work Phone: [facility] 11-11-2021 08:00-0400 Body temperature 97.9 [degF] DO Honey Vaschak Work Phone: [facility] 11-11-2021 08:00-0400 Diastolic blood pressure 67 mm[Hg] DO Honey Vaschak Work Phone: [facility] 11-11-2021 08:00-0400 Heart rate 87 /min DO Honey Vaschak Work Phone: [facility] 11-11-2021 08:00-0400 SaO2% (BldA) [Mass fraction] 95 % DO Honey Vaschak Work Phone: [facility] 11-11-2021 08:00-0400 Systolic blood pressure 103 mm[Hg] DO Honey Vaschak Work Phone: [facility] 11-11-2021 05:58-0400 Respiratory rate 17 /min DO Honey Vaschak Work Phone: [facility] 11-11-2021 04:10-0400 Body weight 93.3 kg DO Honey Vaschak Work Phone: [facility] 11-05-2021 16:33-0400 Body height 167.64 cm DO Honey Danilochak Work Phone: [facility] 10-19-2021 23:25-0400 Diastolic blood pressure 78 mm[Hg] DO Honey Vaschak Work Phone: [facility] 10-19-2021 23:25-0400 Heart rate 83 /min DO Honey Vaschak Work Phone: [facility] 10-19-2021 23:25-0400 Respiratory rate 18 /min DO Honey Hima Work Phone: [facility] 10-19-2021 23:25-0400 SaO2% (BldA) [Mass fraction] 100 % DO Honey Mukulk Work Phone: [facility] 10-19-2021 23:25-0400 Systolic blood pressure 164 mm[Hg] DO Honey Hima Work Phone: [facility] 10-19-2021 19:51-0400 Body temperature 97.6 [degF] DO Honey Hima Work Phone: [facility] 10-19-2021 19:48-0400 Body height 167.64 cm DO Honey Rabago Work Phone: [facility] 10-19-2021 19:48-0400 Body weight 98.6 kg DO Honey Hima Work Phone: [facility] 10-01-2021 11:58-0400 Body height 167.6 cm Gloria Perez APRN.CAUL DRESSER Work Phone: [facility] 10-01-2021 11:58-0400 Body weight 101.06 kg Gloria Perez PRESS ASSISTANT AND FEEDER.CAUL DRESSER Work Phone: [facility] 10-01-2021 11:58-0400 SaO2% (BldA) [Mass fraction] 98 % Gloria Perez APRN.CAUL DRESSER Work Phone: [facility] 09-28-2021 02:06-0400 Heart rate 86 /min DO Honey Hima Work Phone: [facility] 09-28-2021 00:01-0400 Body height 167.64 cm DO Honey Hima Work Phone: [facility] 09-28-2021 00:01-0400 Body mass index (BMI) [Ratio] 35.5 kg/m2 DO Honey Rabago Work Phone: [facility] 09-28-2021 00:01-0400 Body weight 99.79 kg DO Honey Rabago Work Phone: [facility] 09-27-2021 23:57-0400 Body temperature 99.6 [degF] DO Honey Rabago Work Phone: [facility] 09-27-2021 23:57-0400 Diastolic blood pressure 59 mm[Hg] DO Honey Rabago Work Phone: [facility] 09-27-2021 23:57-0400 Respiratory rate 16 /min DO Honey Rabago Work Phone: [facility] 09-27-2021 23:57-0400 SaO2% (BldA) [Mass fraction] 97 % DO Honey Rabago Work Phone: [facility] 09-27-2021 23:57-0400 Systolic blood pressure 125 mm[Hg] DO Honey Rabago Work Phone: [facility] 07-31-2020 16:20-0400 Body height 167.64 cm Honey Rabago Work Phone: [facility] 07-31-2020 16:20-0400 Body mass index (BMI) [Ratio] 41.6 kg/m2 Honey Rabago Work Phone: [facility] 07-31-2020 16:20-0400 Body weight 117.02 kg Honey Rabago Work Phone: [facility] 07-31-2020 16:19-0400 Body temperature 98.1 [degF] Honey GilmanAskablogr Work Phone: [facility] 07-31-2020 16:19-0400 Diastolic blood pressure 70 mm[Hg] Honey GilmanAskablogr Work Phone: [facility] 05-20-2021 16:19-0400 Heart rate 90 /min Honey Rabago Work Phone: [facility] 07-31-2020 16:19-0400 Respiratory rate 18 /min Honey Rabago Work Phone: [facility] 07-31-2020 16:19-0400 SaO2% (BldA) [Mass fraction] 98 % oHney Rabago Work Phone: [facility] 07-31-2020 16:19-0400 Systolic blood pressure 155 mm[Hg] Honey Rabago Work Phone: [facility] Encounters Encounter Date Encounter Type Care Provider Facility Start: 03-06-2024 End: 03-06-2024 ambulatory Gloria Perez PRESS ASSISTANT AND FEEDER.CAUL DRESSER Work Phone: Neurology Comment on above: Depression with anxi ety (Primary Dx); Parkinson's disease without dyskinesia, with fluctuating manifestations (HCC) Start: 03-06-2024 End: 03-06-2024 Telemedicine consultation with patient Gloria Perez HEIDI.CAUL DRESSER Work Phone: Neurology Start: 03-05-2024 End: 03-05-2024 Telephone encounter Betina Wise OT Work Phone: [facility] Comment on above: re: OT Eval set-up Start: 03-04-2024 End: 03-04-2024 Emergency department patient visit Lillian Hutton Facility:[facility] Start: 02-26-2024 End: 02-26-2024 Emergency department patient visit Lillian Hutton Facility:[facility] Start: 02-24-2024 End: 02-24-2024 ambulatory AUDREY TORRES Facility:[facility] Start: 02-24-2024 End: 02-24-2024 Unlisted evaluation and management service Audrey Torres PRESS ASSISTANT AND FEEDER.CAUL DRESSER Work Phone: Neurology Comment on above: NO SHOW (Primary Dx) Start: 02-22-2024 End: 02-23-2024 Telephone encounter Betina Wise OT Work Phone: [facility] Comment on above: OT Initial Eval Start: 02-21-2024 End: 02-21-2024 E-mail encounter from caregiver Audrey Torres HEIDI.CAUL DRESSER Work Phone: Neurology Start: 02-21-2024 End: 02-22-2024 Orders Only Mac Villasenor REGIONAL OFFICE COORDINATOR Work Phone: [facility] External Department Unsolicited Start: 02-21-2024 End: 02-21-2024 Office outpatient visit 25 minutes Mac Villasenor REGIONAL OFFICE COORDINATOR Work Phone: [facility] Comment on above: Morbid obesity (CMS/ HCC) (Primary Dx); Type 2 diabetes mellitus with other specified complication, without long-term current use of insulin (CMS/HCC); Parkinson's disease without dyskinesia or fluctuating manifestations (CMS/HCC); Frequent falls; Acquired hypothyroidism (CMS/HCC); Type 2 diabetes mellitus with hyperglycemia (CMS/HCC); Immunodeficiency due to conditions classified elsewhere (CMS/HCC) Start: 02-21-2024 End: 02-21-2024 ambulatory MAC VILLASENOR [facility] Comment on above: How to Prepare for Y our Upcoming Virtual Visit Start: 02-16-2024 End: 02-16-2024 Bamboo flowsheet Urbano Hutton DPM Work Phone: [facility] Start: 02-16-2024 End: 02-16-2024 Bamboo flowsheet Urbano Hutton DPM Work Phone: [facility] Start: 02-16-2024 End: 02-16-2024 Patient encounter procedure Urbano Hutton DPM Work Phone: [facility] Comment on above: Onychomycosis (Prima ry Dx); Pain in both feet; Type II diabetes mellitus with neurological manifestations (CMS/HCC); Neuropathy Start: 02-16-2024 End: 02-16-2024 ambulatory URBANO HUTTON Not Available Start: 12-05-2023 End: 12-05-2023 Bamboo flowsheet Lis Paez REGIONAL OFFICE COORDINATOR Work Phone: [facility] Start: 12-05-2023 End: 12-05-2023 Bamboo flowsheet Lis Paez REGIONAL OFFICE COORDINATOR Work Phone: [facility] Start: 12-05-2023 End: 12-05-2023 ambulatory LIS CASTROPHILLY Not Available Start: 12-05-2023 End: 12-05-2023 Office outpatient visit 25 minutes Lis Paez REGIONAL OFFICE COORDINATOR Work Phone: [facility] Comment on above: GERMANIA (obstructive sle ep apnea) (Primary Dx); Inadequate sleep hygiene; Hypersomnia; Snoring; Anxiety; Depression, unspecified depression type ([facility]/HCC); Memory loss Start: 11-23-2023 End: 11-23-2023 Office outpatient visit 25 minutes Mac Villasenor REGIONAL OFFICE COORDINATOR Work Phone: [facility] Comment on above: Vaginal yeast infect ion (Primary Dx); Atrophic vaginitis; Diabetic peripheral neuropathy associated with type 2 diabetes mellitus ([facility]) Start: 11-23-2023 End: 11-23-2023 ambulatory MAC VILLASENOR Not Available Start: 11-17-2023 End: 11-17-2023 Office outpatient visit 15 minutes Urbano Hutton DPM Work Phone: [facility] Comment on above: Onychomycosis (Prima ry Dx); Pain in both feet; Type II diabetes mellitus with neurological manifestations (CMS/[facility]); Neuropathy; Hammer toes of both feet Start: 11-17-2023 End: 11-17-2023 ambulatory URBANO HUTTON Not Available Start: 11-17-2023 End: 11-17-2023 Bamboo flowsheet Urbano Hutton DPM Work Phone: [facility] Start: 11-17-2023 End: 11-17-2023 Bamboo flowsheet Urbano Hutton DPM Work Phone: [facility] Start: 11-16-2023 End: 11-17-2023 Refill Batsheva Alarcon MA [facility] Comment on above: Vaginal yeast infect ion Start: 11-15-2023 End: 11-15-2023 Office outpatient visit 25 minutes Mac Hamilton REGIONAL OFFICE COORDINATOR Work Phone: [facility] Comment on above: Parkinson's disease without dyskinesia or fluctuating manifestations (CMS/HCC) (Primary Dx); Type 2 diabetes mellitus with other specified complication, unspecified whether skilled nursing insulin use (CMS/HCC); GERMANIA (obstructive sleep apnea); Pulmonary fibrosis (CMS/HCC); Vaginal yeast infection; Vitamin D deficiency; Vitamin B12 deficiency; Need for vaccination with 20-polyvalent pneumococcal conjugate vaccine Start: 11-15-2023 End: 11-15-2023 ambulatory MAC HAMILTON Not Available Start: 10-30-2023 End: 11-02-2023 Clinisync Result Encounter Generic External Data Provider [facility] External Department Unsolicited Start: 10-30-2023 End: 11-02-2023 Clinisync Result Encounter Generic External Data Provider [facility] External Department Unsolicited Start: 10-25-2023 End: 10-25-2023 ambulatory GLORIA PEREZ Facility:[facility] Start: 10-25-2023 End: 10-25-2023 Patient encounter procedure Gloria Perez APRN.CAUL DRESSER Work Phone: Neurology Comment on above: Injury of head, init ial encounter (Primary Dx); Parkinson's disease without dyskinesia, with fluctuating manifestations (HCC); Depression with anxiety Start: 10-06-2023 End: 10-06-2023 ambulatory SIXTO APONTE Not Available Start: 08-18-2023 End: 08-18-2023 ambulatory URBANO HUTTON Not Available Start: 08-16-2023 End: 08-16-2023 ambulatory LIS PAEZ Not Available Start: 07-29-2023 End: 07-29-2023 ambulatory HONEY RABAGO Not Available Start: 06-23-2023 End: 06-23-2023 ambulatory GLORIA PEREZ Facility:[facility] Start: 06-23-2023 End: 06-23-2023 Patient encounter procedure Gloria Perez APRN.CAUL DRESSER Work Phone: Neurology Comment on above: Depression [...] Available Start: 02-11-2023 Telephone encounter Gloria blankenship APRN.CAUL DRESSER Work Phone: Neurology Comment on above: Medication Problem Start: 01-20-2023 End: 01-20-2023 Patient encounter procedure Gloria Perez APRN.CAUL DRESSER Work Phone: Neurology Comment on above: Parkinson's disease without dyskinesia, with fluctuating manifestations (Primary Dx); Depression with anxiety Start: 07-14-2022 End: 07-14-[address] HONEY RABAGO Facility:[facility] Start: 07-12-2022 End: 07-12-[address] HONEY RABAGO Facility:[facility] Start: 07-08-2022 End: 07-08-2022 Patient encounter procedure Gloria Perez APRN.CAUL DRESSER Work Phone: Neurology Comment on above: Parkinson's disease (HCC) (Primary Dx); Depression with anxiety Start: 06-01-2022 End: 06-01-[address] HONEY RABAGO Facility:[facility] Start: 05-31-2022 ambulatory Gloria Perez APRN.CAUL DRESSER Work Phone: Neurology Comment on above: UPDATE: ALTON CRAWFORD : [birth year] Start: 05-20-2022 End: 05-20-2022 ambulatory DO Honey Rabago Work Phone: [facility] Work Phone: Start: 05-20-2022 End: 05-20-2022 Discharged Recurring DO Honey Rabago Work Phone: [facility]fusion [facility] - O/P Work Phone: Start: 04-13-2022 Refill Gloria Perez PRESS ASSISTANT AND FEEDER.CAUL DRESSER Work Phone: Neurology Comment on above: Refill Request Start: 02-15-2022 Telephone encounter Gloria blankenship APRN.CAUL DRESSER Work Phone: Neurology Comment on above: Patient Update Start: 02-02-2022 End: 02-03-[address] HONEY RABAGO Facility:[facility] Start: 01-08-2022 End: 01-08-2022 ambulatory Anu Alva Other [employer] Other Start: 01-08-2022 Telephone encounter Anu Alva [facility] Start: 12-30-2021 End: 12-30-2021 Patient encounter procedure DO Honey Rabago Work Phone: [facility] Start: 12-29-2021 End: 12-30-[address] HONEY RABAGO Facility:[facility] Start: 12-21-2021 End: 12-21-[address] HONEY RABAGO Facility:[facility] Start: 12-15-2021 (Repeat ACH) Anu Alva [facility] Start: 12-15-2021 End: 12-15-2021 ambulatory Anu Alva Other [employer] Other Start: 12-14-2021 End: 12-14-[address] HONEY RABAGO Facility:[facility] Start: 12-01-2021 (Repeat ACH) Anu Alva [facility] Start: 12-01-2021 End: 12-01-2021 ambulatory Anu Alva Other [employer] Other Start: 11-30-2021 End: 11-30-[address] HONEY RABAGO Facility:[facility] Start: 11-11-2021 End: 11-25-2021 Evaluation and management of inpatient DO Honey Rabago Work Phone: [facility] Start: 11-05-2021 End: 11-05-2021 ambulatory Oswaldo Almonte Other [employer] Other Start: 11-05-2021 Patient encounter procedure Oswaldo Almonte [facility] Start: 11-05-2021 Telephone encounter Gloria blankenship APRN.CAUL DRESSER Work Phone: Neurology Comment on above: Appointment; Patient Update (Called to schedule follow up. Patient in hospital.) Start: 11-04-2021 End: 11-11-2021 Evaluation and management of inpatient DO Honey Rabago Work Phone: [facility] Start: 10-26-2021 ambulatory Gloria Perez APRN.CAUL DRESSER Work Phone: Neurology Comment on above: ALTON BARKER UPDATE MESSAGE #3 Start: 10-22-2021 Registered Recurring DO Honey Rabago Work Phone: [facility] Start: 10-22-2021 ([facility]) [facility] Re peat A/C Anu Alva [facility] Start: 10-22-2021 End: 10-22-2021 ambulatory Anu Alva Other [employer] [facility] [employer] Other Start: 10-19-2021 End: 10-20-2021 Emergency department patient visit DO Honey Rabago Work Phone: [facility]-Emergency Room Start: 10-01-2021 End: 10-01-2021 Patient encounter procedure Gloria Perez APRN.CAUL DRESSER Work Phone: Neurology Comment on above: Recurrent episodes o f unresponsiveness (Primary Dx); Parkinson's disease (HCC); Depression with anxiety; Fatigue, unspecified type; Excessive daytime sleepiness Start: 09-29-2021 ([facility] R A/c) [facility] Re peat A/C Anu Alva [facility] Start: 09-29-2021 End: 09-29-2021 ambulatory Anu Fitt Other [employer] Other Start: 09-27-2021 End: 09-28-2021 Emergency department patient visit DO Honey Rabago Work Phone: [facility]-Emergency Room Start: 09-23-2021 End: 09-23-2021 ambulatory Anu Fitt Other [employer] Other Start: 09-23-2021 Telephone encounter Anu Fitt [facility] Start: 08-26-2021 ([facility] R A/c) [facility] Re peat A/C Anu Fitt [facility] Start: 08-26-2021 End: 08-26-2021 ambulatory Anu Fitt Other [employer] Other Start: 08-05-2021 ([facility]c) [facility] Anu Fitt [facility] Start: 08-05-2021 End: 08-05-2021 ambulatory Anu Fitt Other [employer] Other Start: 07-20-2021 ([facility] R A/c) [facility] Re peat A/C Anu Fitt [facility] Start: 07-20-2021 End: 07-20-2021 ambulatory Anu Fitt Other [employer] Other Start: 06-10-2021 ([facility] R A/c) [facility] Re peat A/C Anu Fitt [facility] Start: 06-10-2021 End: 06-10-2021 ambulatory Anu Fitt Other [employer] Other Start: 05-26-2021 ([facility] R A[facility]c) [facility]C Anu Fitt [facility] Start: 05-26-2021 End: 05-26-2021 ambulatory Anu Fitt Other [employer] Other Start: 05-19-2021 End: 05-19-2021 ambulatory Anu Fitt Other [employer] Other Start: 05-19-2021 Telephone encounter Anu Fitt [facility] Start: 04-21-2021 End: 04-21-2021 ambulatory Anu Fitt Other [employer] Other Start: 04-21-2021 Telephone encounter Anu Fitt [facility] Start: 04-15-2021 End: 04-15-2021 ambulatory Anu Fitt Other [employer] Other Start: 04-15-2021 Telephone encounter Anu Fitt [facility] Start: 03-25-2021 ([facility] R A/c) [facility] Re peat A/C Anu Fitt [facility] Start: 03-25-2021 End: 03-25-2021 ambulatory Anu Fitt Other [employer] Other Start: 02-25-2021 ([facility] R A/c) [facility] Re peat A/C Anu Fitt [facility] Start: 02-25-2021 End: 02-25-2021 ambulatory Anu Fitt Other [employer] Other Start: 01-28-2021 ([facility] R A/c) [facility] Re peat A/C Anu Fitt [facility] Start: 01-28-2021 End: 01-28-2021 ambulatory Anu Fitt Other [employer] Other Start: 01-21-2021 End: 01-21-2021 ambulatory Anu Fitt Other [employer] Other Start: 01-21-2021 [facility] Start: 01-07-2021 End: 01-07-2021 ambulatory Anu Alva Other [employer] Other Start: 01-07-2021 Telephone encounter Anu Cal[facility] Start: 12-10-2020 ([facility] R A/c) [facility] Re peat A/C Anu Alva [facility] Start: 07-31-2020 End: 07-31-2020 Emergency department patient visit Honey Rabago Work Phone: -Emergency Room Start: 06-18-2020 Registered Recurring Honey guerrero Work Phone: -[facility] Procedures Date Procedure Procedure Detail Performing Clinician Start: 02-21-2024 Complete blood count with white cell differential, automated Mac Villasenor REGIONAL OFFICE COORDINATOR Work Phone: Start: 02-21-2024 End: 02-21-2024 Comprehensive metabolic panel Mac Villasenor REGIONAL OFFICE COORDINATOR Work Phone: Start: 02-21-2024 Lipid panel Mac silva REGIONAL OFFICE COORDINATOR Work Phone: Start: 02-21-2024 SPECIMEN STATUS REPORT Mac Villasenor REGIONAL OFFICE COORDINATOR Work Phone: Start: 11-15-2023 Hemoglobin glycosylated a1c Honey Rabago DO Work Phone: Start: 10-30-2023 Bacteria identified in Urine by Culture Generic External Data Provider Start: 04-27-2023 ALL HEMOGLOBIN Generic External Data [...] Adult depression scr eening assessment Gloria Perez PRESS ASSISTANT AND FEEDER.CAUL DRESSER Work Phone: Start: 09-28-2021 Plain chest X-ray [...] Treatment Date Care Activity Detail Author Start: 02-20-2027 Diabetes Screening Diabetes Screenin g [facility] Start: 07-28-2026 Diabetes Screening Diabetes Screenin g [facility] Start: 03-28-2026 Diabetes Screening Diabetes Screenin g [facility] Start: 10-09-2024 End: 10-09-2024 Patient encounter procedure 10/09/2024 1:30 PM EDT Office Visit [facility] [address] [place] [address] Sixto Aponte MD [address] [place] [address] [facility] Start: 07-28-2024 Medicare Annual Wellness (AWV) Medicare Annual Wellness (AWV) [facility] Start: 05-29-2024 End: 05-29-2024 Patient encounter procedure 05/29/2024 1:00 PM EDT [facility] [address] [place] [phone] Honey Rabago DO [address] [place] [address] [facility] Start: 05-21-2024 Hemoglobin A1c measurement Diabetes: Hemoglobin A1C [facility] Start: 05-17-2024 End: 05-17-2024 Patient encounter procedure 05/17/2024 1:00 PM EST Procedure Visit [facility] [address] [place] [phone] Urbano Hutton DPM [address] [place] [address] [facility] Start: 04-25-2024 End: 04-25-2024 Patient encounter procedure 04/25/2024 2:00 PM EST Office Visit [facility] [place] [phone] Lis Paez NP [address] [place] [address] [facility] Start: 04-11-2024 End: 04-11-2024 Patient encounter procedure 04/11/2024 1:00 PM EST Office Visit Neurology [facility] [address] [place] [address] Nupur Main, PAZenaC [address] [place] [address] r/s from 02/24/24 appt Neurology [facility] Comment on above: r/s from 02/24/24 ap pt Start: 03-05-2024 End: 03-05-2024 Patient encounter procedure 03/05/2024 1:20 PM EST Office Visit [facility] [address] [place] [address] Lis Paez, YEN [address] [place], [place] [facility] Start: 02-28-2024 End: 02-28-2024 ambulatory 02/28/2024 1:30 PM EST Evaluation [facility] [address] [place] [phone] Betina Wise, OT [address] [facility] [address] [place] [address] [facility] Start: 02-28-2024 End: 02-28-2024 Patient encounter procedure 02/28/2024 1:30 PM EST Office Visit Neurology [address] [phone] Gloria Perez, PRESS ASSISTANT AND FEEDER.CAUL DRESSER [address] [place], [place] [id number] Parkinson's disease without dyskinesia, with fluctuating manifestations (HCC) [G20.A2] Neurology Comment on above: Parkinson's disease without dyskinesia, with fluctuating manifestations (HCC) [G20.A2] Start: 02-24-2024 End: 02-24-2024 ambulatory 02/24/2024 3:00 PM EST [facility] Neurology [address] [place] [address] Audrey Torres, PRESS ASSISTANT AND FEEDER.CAUL DRESSER [address] [place] [address] *Patient agreeable to virtual visit per phone call (02/16/24)* Neurology Comment on above: *Patient agreeable t o virtual visit per phone call (02/16/24)* Start: 02-21-2024 End: 02-21-2024 Patient encounter procedure [facility] Start: 02-16-2024 End: 02-16-2024 Patient encounter procedure [facility] Comment on above: Arrived Start: 02-14-2024 End: 11-14-2024 25-hydroxyvitamin D3 [Mass/volume] in Serum or Plasma Vitamin D 25 hydroxy Total Lab Routine Vitamin D deficiency Expected: 02/14/2024 (Approximate), Expires: 11/14/2024 [facility] Comment on above: Expected: 02/14/2024 (Approximate), Expires: 11/14/2024 Start: 02-14-2024 End: 11-14-2024 CBC W Auto Differential panel - Blood CBC and differential Lab Routine Type 2 diabetes mellitus with other specified complication, 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 ([facility]) Expected: 02/14/2024 (Approximate), Expires: 11/14/2024 [facility] Comment on above: Expected: 02/14/2024 (Approximate), Expires: 11/14/2024 Start: 02-14-2024 End: 11-14-2024 Cobalamin (Vitamin B12) [Mass/volume] in Serum or Plasma Vitamin B12 Lab Routine Vitamin B12 deficiency Expected: 02/14/2024 (Approximate), Expires: 11/14/2024 [facility] Comment on above: Expected: 02/14/2024 (Approximate), Expires: 11/14/2024 Start: 02-14-2024 End: 05-14-2024 Comprehensive metabolic 2000 panel - Serum or Plasma Comprehensive metabolic panel Lab Routine Type 2 diabetes mellitus with other specified complication, 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 ([facility]) Expected: 02/14/2024 (Approximate), Expires: 05/14/2024 [facility] Work Phone: Comment on above: Expected: 02/14/2024 (Approximate), Expires: 05/14/2024 Start: 02-14-2024 Hemoglobin A1c measurement Diabetes: Hemoglobin A1C [facility] Start: 02-14-2024 End: 11-14-2024 Hemoglobin a1c with eag Hemoglobin a1c with eag Lab Routine Type 2 diabetes mellitus with other specified complication, 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 (CMS/HCC) Expected: 02/14/2024 (Approximate), Expires: 11/14/2024 [facility] Comment on above: Expected: 02/14/2024 (Approximate), Expires: 11/14/2024 Start: 02-14-2024 End: 11-14-2024 Lipid 1996 panel - Serum or Plasma Lipid panel Lab Routine Type 2 diabetes mellitus with other specified complication, 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 ([facility]) Expected: 02/14/2024 (Approximate), Expires: 11/14/2024 [facility] Comment on above: Expected: 02/14/2024 (Approximate), Expires: 11/14/2024 Start: 01-23-2024 Glaucoma screening Diabetes: R etinopathy Screening [facility] Start: 12-29-2023 Urine screening for protein Diabetes: Urine Protein Screening [facility] Start: 12-05-2023 End: 12-05-2023 Patient encounter procedure 12/05/2023 1:20 PM EDT Office Visit [facility] [address] [phone] Lis Paez NP [address] [facility] [address] [place], [place] [facility] Start: 12-04-2023 DIABETES SCREEN DIABETES SCREEN [facility] Start: 12-04-2023 [facility] Start: 11-17-2023 End: 11-17-2023 Patient encounter procedure [facility] Comment on above: Arrived Start: 11-15-2023 End: 11-15-2023 Patient encounter procedure 11/15/2023 1:30 PM EDT Office Visit [facility] [address] [place] [phone] Honey Rabago DO [address] [place] [address] [facility] Start: 11-13-2023 Covid-19 Vaccine ( season) Covid-19 Vaccine () [facility] Start: 11-13-2023 Influenza vaccination Influenza Vacc ine (#1) [facility] Start: 10-29-2023 Hemoglobin A1c measurement Diabetes: Hemoglobin A1C [facility] Start: 10-25-2023 End: 11-23-2024 CT Head WO contrast CT BRAIN WO IVCON Radiology STAT Injury of head, initial encounter Expected: 10/25/2023, Expires: 11/23/2024 [facility] Work Phone: Comment on above: Expected: 10/25/2023 , Expires: 11/23/2024 Start: 10-06-2023 End: 10-06-2023 Patient encounter procedure 10/06/2023 10:50 AM EDT [facility] [address] [place] [address] Sixto Aponte MD [address] [place] [address] [facility] Start: 07-29-2023 Medicare Annual Wellness (AWV) Medicare Annual Wellness (AWV) [facility] Start: 07-27-2023 End: 07-27-2023 Patient encounter procedure 07/27/2023 2:00 PM EDT Office [facility] [address] [place] [phone] Honey Rabago DO [address] [place] [address] [facility] Start: 06-27-2023 Hemoglobin A1c measurement Diabetes: Hemoglobin A1C [facility] Start: 05-04-2023 End: 05-04-2023 Patient encounter procedure 05/04/2023 1:00 PM EST Procedure Visit [facility] [address] [place] [phone] Urbano Hutton DPM [address] [place] [address] [facility] Start: 03-14-2023 Advance Directive Discussion Advance Directive Discussion [facility] Start: 11-12-2022 Covid-19 Vaccine ( season) Covid-19 Vaccine () [facility] Start: 09-29-2022 Adult depression screening assessment DEPRESSION SCREENING [facility] Start: 03-14-2022 ADVANCE DIRECTIVE DISCUSSION ADVANCE DIRECTIVE DISCUSSION [facility] Start: 03-14-2022 DEPRESSION ASSESSMENT DEPRESSION ASS ESSMENT [facility] Start: 12-11-2021 [facility] Work Phone: Start: 12-10-2021 [facility] Work Phone: Start: 12-09-2021 [facility] Work Phone: Start: 12-08-2021 [facility] Work Phone: Start: 12-07-2021 [facility] Work Phone: Start: 12-06-2021 [facility] Work Phone: Start: 12-05-2021 [facility] Work Phone: Start: 12-04-2021 [facility] Work Phone: Start: 12-03-2021 [facility] Work Phone: Start: 12-02-2021 [facility] Work Phone: Start: 12-01-2021 [facility] Work Phone: Start: 11-30-2021 [facility] Work Phone: Start: 11-29-2021 [facility] Work Phone: Start: 11-28-2021 [facility] Work Phone: Start: 11-27-2021 [facility] Work Phone: Start: 11-26-2021 [facility] Work Phone: Start: 11-25-2021 [facility] Work Phone: Start: 11-24-2021 End: 11-24-2021 [facility] Start: 11-23-2021 [facility] Start: 11-22-2021 [facility] Work Phone: Start: 11-21-2021 [facility] Work Phone: Start: 11-20-2021 [facility] Work Phone: Start: 11-19-2021 [facility] Work Phone: Start: 11-18-2021 [facility] Work Phone: Start: 11-17-2021 [facility] Work Phone: Start: 11-16-2021 [facility] Work Phone: Start: 11-15-2021 [facility] Work Phone: Start: 11-14-2021 [facility] Work Phone: Start: 11-13-2021 [facility] Work Phone: Start: 11-12-2021 Influenza vaccination INFLUENZA (#1) [facility] Start: 11-11-2021 Administration of prophylactic treatment [facility] Start: 11-11-2021 Hospital admission [facility] Start: 11-11-2021 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 cigar tobacco rehandler [facility] Start: 11-11-2021 [facility] Work Phone: Start: 11-11-2021 Evaluation and management of inpatient Back pain [facility] Start: 11-09-2021 [facility] Start: 11-05-2021 MR lumbar spine wo con MR lumbar spi ne wo con [facility] Start: 11-05-2021 Administration of prophylactic treatment [facility] Start: 11-05-2021 Administration of prophylactic treatment [facility] Start: 11-05-2021 Consultation [facility] Start: 11-04-2021 Referral to psychiatrist [facility] Start: 11-04-2021 Hospital admission [facility] Start: 11-04-2021 End: 11-11-2021 Evaluation and management of inpatient Back pain [facility] Start: 11-04-2021 CT of head without contrast CT head[facility]brain wo [facility] Start: 11-04-2021 Computed tomography of thoracic spine without contrast CT thoracic spine wo [facility] Start: 11-04-2021 CT cervical spine without contrast CT cervical spine wo [facility] Start: 11-04-2021 CT of lumbar spine without contrast CT lumbar spine wo [facility] Start: 10-22-2021 Registered Recurring Registered Recu rring [facility] Start: 07-28-2021 Urine screening for protein Diabetes: Urine Protein Screening [facility] Start: 05-20-2021 COVID-19 VACCINE (4 - Booster for Moderna series) COVID-19 VACCINE (4 - Booster for Moderna series) [facility] Start: 03-17-2021 COVID-19 VACCINE (4 - Booster for Moderna series) COVID-19 VACCINE (4 - Booster for Moderna series) [facility] Start: 03-14-2021 ADVANCE DIRECTIVE DISCUSSION ADVANCE DIRECTIVE DISCUSSION [facility] Start: 03-14-2021 DEPRESSION ASSESSMENT DEPRESSION ASS ESSMENT [facility] Start: 2016 RSV Vaccine (1 - 1-d ose 75+ series) RSV Vaccine (1 - 1-dose 75+ series) [facility] Start: 07-23-2009 Urine microalbumin profile DTaP,Tdap,Td Vaccine (1 - Tdap) [facility] Start: 2006 BONE DENSITY BONE DENSITY [facility] Start: 2006 Bone Density Screening Bone Density Screening [facility] Start: 2006 PNEUMOCOCCAL: 65+ (1 - PCV) PNEUMOCOCCAL: 65+ (1 - PCV) [facility] Start: 2001 RSV Vaccine (1 - 1-d ose 60+ series) RSV Vaccine (1 - 1-dose 60+ series) [facility] Start: 07-14-1991 SHINGRIX VACCINE (1 of 2) SHINGRIX VACCINE (1 of 2) [facility] Start: 1960 Urine microalbumin profile DTAP,TDAP,TD (1 - Tdap) [facility] Bacteria identified in Urine by Culture URINE CULTURE, ROUTINE Lab Routine 10/30/2023 11:29 PM EDT [facility] End: 10-04-2022 EPIL EEG ROUTINE EPIL EEG ROUTINE NEUROLOGY Routine Recurrent episodes of unresponsiveness 1 Occurrences starting 10/04/2021 until 10/04/2022 [facility] Work Phone: Comment on above: 1 Occurrences starti ng 10/04/2021 until 10/04/2022 Patient Education [facility] Work Phone: Patient referral [facility] Immunizations Immunization Date Immunization Notes Care Provider Fa cility 01-18-2024 Pneumococcal Conjuga te PCV 20 Yuerong Hamilton REGIONAL OFFICE COORDINATOR Work Phone: [facility] 01-18-2024 Seasonal trivalent influenza vaccine, adjuvanted, preservative free Yuerong Hamilton REGIONAL OFFICE COORDINATOR Work Phone: [facility] 01-18-2024 influenza virus vaccine, unspecified formulation Urbano Hutton DPM Work Phone: [facility] 11-15-2023 Pneumococcal Conjuga te PCV 20 Yuerong Hamilton REGIONAL OFFICE COORDINATOR Work Phone: [facility] 12-15-2022 Influenza, Seasonal, Quadrivalent, Adjuvanted Generic Provider [facility] 12-15-2022 influenza virus vaccine, unspecified formulation Generic Provider [facility] 01-25-2022 influenza, high dose seasonal, preservative-free Generic Provider [facility] 12-03-2020 influenza, high dose seasonal, preservative-free Generic Provider [facility] 12-24-2019 Seasonal trivalent influenza vaccine, adjuvanted, preservative free Generic Provider [facility] 02-05-2019 influenza, high dose seasonal, preservative-free Anu Fitt Other [employer] Other 02-10-2018 influenza, high dose seasonal, preservative-free Generic Provider [facility] 05-03-2017 influenza, injectabl e, quadrivalent, preservative free Generic Provider [facility] 12-25-2015 influenza, high dose seasonal, preservative-free Generic Provider [facility] 12-17-2014 influenza, seasonal, injectable, preservative free Generic Provider [facility] 10-02-2014 pneumococcal conjuga te vaccine, 13 valent Generic Provider [facility] 11-28-2013 influenza, high dose seasonal, preservative-free Generic Provider [facility] 10-01-2013 pneumococcal polysaccharide vaccine, 23 valent Generic Provider [facility] 01-13-2012 seasonal influenza, intradermal, preservative free Generic Provider [facility] 01-09-2010 seasonal influenza, intradermal, preservative free Generic Provider [facility] 07-22-2009 tetanus and diphther ia toxoids, adsorbed, preservative free, for adult use (2 Lf of tetanus toxoid and 2 Lf of diphtheria toxoid) Generic Provider [facility] 12-16-2008 seasonal influenza, intradermal, preservative free Generic Provider [facility] Payers Date Payer Category Payer Self-pay [id number] 2023 Medicare (Managed Care) [employer] M [employer]ICARE ADVANTAGE [id number] 2023 Medicare [id number] 2021 Medicare [id number] 2021 Unknown [facility] BLUE [facility] S AND BLUE [facility] [id number] 2021-Present [phone] [address] [place] [address] O [id number] [id number]. [id number] 2021 Unknown [id number]. 1.13.159.2. [id number] 1959 Medicare [id number] 1959 Unknown [id number] 1941 Unknown [id number] 2.16.840.1.333454.3.579.2. 593 1941 Unknown [id number] 2.16.840.1.239390.3.579.2. 593 1941 Unknown [id number] 2.16.840.1.372172.3.579.2. 593 1941 Unknown [id number] 2.16.840.1.049218.3.579.2. 593 1941 Unknown [id number] 2.16.840.1.042652.3.579.2. 593 1941 Unknown [id number] 2.16.840.1.463491.3.579.2. 593 1941 Unknown [id number] 2.16.840.1.923202.3.579.2. 593 1941 Unknown [id number] 2.16.840.1.013636.3.579.2. 593 1941 Unknown [id number] 2.16.840.1.096618.3.579.2. 1259 1941 Unknown [id number] 2.16.840.1.302007.3.579.2. 1259 1941 Unknown [id number] 2.16.840.1.362633.3.579.2. 1258 1941 Unknown [id number] 2.16.840.1.406403.3.579.2. 1258 1941 Unknown [id number] 2.16.840.1.661375.3.579.2. 1258 1941 Unknown [id number] 2.16.840.1.423451.3.579.2. 1258 1941 Unknown [id number] 2.16.840.1.286971.3.579.2. 1258 1941 Unknown [id number] 2.16.840.1.751108.3.579.2. 1258 1941 Unknown [id number] 2.16.840.1.514243.3.579.2. 1258 1941 Unknown [id number] 2.16.840.1.514094.3.579.2. 1258 1941 Unknown [id number] 2.16.840.1.182376.3.579.2. 1258 1941 Unknown [id number] 2.840.1.596877.3.579.2. 1258 1941 Unknown [id number] 2.16.840.1.556408.3.579.2. 1259 Medicare Medicare Rehab-IP Part A [id number] Private Health Insurance [id number] Unknown [id number] 2.840.1.465901.3.579.2. 531 Unknown [id number] 2.16840.1.193768.3.579.2. 531 Social History Date Type Detail Facility Start: 07-31-2020 End: 02-12-2022 Tobacco smoking status TNIS Ex-smoker (finding) [facility] Start: 1940 Sex Assigned At Female [facility] Start: 01-20-2023 End: 02-24-2024 Sex Assigned At [facility] Start: 03-02-2018 End: 02-12-2022 Tobacco use and exposure Smokeless tobacco non-user [facility] Start: 09-21-2021 End: 02-12-2022 Exposure to SARS-CoV-2 (event) Not sure [facility] History of tobacco use Current smoker [facility] Start: 11-12-2021 End: 09-23-2022 Tobacco smoking status NHIS Never smoked tobacco (finding) [facility] Start: 01-20-2023 End: 02-24-2024 History of Social function [facility] Adult Depression Screening Assessment 4 [facility] Start: 11-26-2019 Gender identity Identifies as female gender (finding) [facility] Start: 11-26-2019 Sexual orientation Heterosexual (finding) [facility] Start: 03-28-2023 Alcohol intake Current drinker of alcohol (finding) [facility] How often to you hav e a drink containing alcohol? Never [facility] Start: 12-12-2022 Alcohol Comment caffeine: coffee 1-2 cups a day [facility] Start: 1940 Sex Assigned At Not on file [facility] Start: 11-23-2023 End: 02-21-2024 Alcoholic beverage intake Lifetime non-drinker (finding) [facility] Medical Equipment Procedure Code Equipment [...] status Patient is Pro gressing Toward Baseline [facility] Work Phone: 11-04-2021 Functional status Patient at Baseline [facility] Work Phone: Mental Status Date Assessment Result Facility 11-25-2021 Cognitive function Cognitive Sta tus Patient at Baseline [facility] Work Phone: 11-11-2021 Cognitive function Cognitive Sta tus Patient Not at Baseline [facility] Work Phone: 11-04-2021 Cognitive function Cognitive Sta tus Patient at Baseline [facility] Work Phone: Clinical Notes 12-10-2020 to 03-06-2024 Gloria Perez APRN.ELDON - 03/06/2024 1:30 PM ESTTelephone Encounter - Lilibeth Reagan - 03/05/2024 2:06 PM ESTTelephone Encounter - Lilibeth Reagan - 03/05/2024 2:06 PM ESTPatient Instructions Note Date & Type Note Facility 03-06-2024 History of Present illness Narrative [facility] - FOLLOW UP EVALUATION Primary Neurologist: Tyree Perez MD Primary BETHEL: ELDON Chicas DO [address] [place] [address] Dear Honey Rabago DO: I had the pleasure of seeing Ms. Barker for follow-up today. As you know she is a 83 year old right-handed female with a history of Parkinson's disease since 2013. She is seen with her son. We had a visit using: Runa Subjective Previous Plan-10/25/2023 Visit: Parkinson's disease: Continue current medication schedule Restart exercising Please let me know if you change your mind about physical therapy Depression and anxiety: Continue seeing the therapist you have been seeing Continue your medication schedule Other: I have ordered a stat brain CT scan due to the fall and hitting your head, experiencing dizziness, and being on a blood thinner. Please remember our discussion and even if the CT is normal, sometimes brain bleeds can be delayed so if you have any of the changes we discussed, you need to be evaluated immediately Follow up with primary care provider for left leg swelling since this is not typically the side that swells Interval History: She said her cognition is bad especially her short term memory. She has fallen 4 times in the last month requiring ER visits as she hit her head with all of them. She has another compression fracture (thoracic), but her brain CT is ok. She is not doing physical therapy as when she was getting ready to schedule it is when she found out about the fracture. She will be following up with a physician soon for this and will start physical therapy when approved to do so. Movement Disorders Medications Schedule - as of the start of the visit: Medications 7am 11am 3pm 7pm Bedtime Sinemet 25/100 1.5 1 1 1 Effexor 150mg 1 Effexor 75mg 1 Mirtazapine 7.5mg 1 Parkinson's Motor Complications Medication benefit onset: (Comment: 15-60) Medication duration: (Comment: 3-3.75) Wearing off: yes (Comment: She will have tremor when it wears off as well as more difficulty doing things If she is busy, she will likely [...] Yes (mild) Difficulties turning in bed: Yes (moderate) Difficulties getting out of bed, car or chair: Yes (severe) Tremors/Gait/Balance Shaking or tremors: Yes (moderate) Both at rest and with activities. Walking and balance problems: Yes (moderate) Number of falls in the Last Month: 4 Gait freezing: Yes (slight) Autonomic/Pain Lightheadeness on standing: Yes (mild) Urinary problems: Yes (severe) She is incontinent. She has a UTI now and is on antibiotics. Constipation problems: Yes (moderate) Pain and other sensations: Yes (mild) Speech/Swallowing Speech problems: Yes (moderate) Drooling: Yes (moderate) Chewing and swallowing problems: Yes (slight) Sleep/Fatigue Sleep problems: 0 (none) Daytime sleepiness: Yes (mild) Fatigue: Yes (slight) Mood/Behavior Depression: Anxiety: GREGORY-7 Total Score: 11 usually representing moderate (10-14) anxiety. Finally, the following table shows the patient's overall global physical and mental health using the PROMIS scale: PROMIS-10 Flowsheet Row Distance Health from 03/06/2024 in Neurology Office Visit from 06/23/2023 in Neurology Global Physical Health T Score 37.4 34.9 Global Mental Health T Score 38.8 45.8 0-10 Standard Pain Scale 3 2 *PROMIS-10 scoring scale: mean = 50, over 50 is above average, under 50 is below average ALLERGIES Allergen Reactions Hydrocodone-Acetami* Mental Status Change Abilify [Aripiprazo* Contraindication-Medical Surgical People with Parkinson's disease should not take this or other antipsychotics except Nuplazid, Seroquel, and Clozaril can be prescribed. Adhesive Tape (Sridevi* Rash Bupropion Mental Status Change hallucinations Compazine [Prochlor* Contraindication-Medical Surgical This should not be given to people with Parkinson's disease. If not otherwise contraindicated, Zofran should be given instead. Haldol [Haloperidol] Contraindication-Medical Surgical People with Parkinson's disease should not take this or other antipsychotics except Nuplazid, Seroquel, and Clozaril can be prescribed. Latex, Natural Rubb* Rash Phenergan [Prometha* Contraindication-Medical Surgical This should not be given to people with Parkinson's disease. If not otherwise contraindicated, Zofran should be given instead. Reglan [Metoclopram* Contraindication-Medical Surgical This should not be given to people with Parkinson's disease. Rosuvastatin Calcium Unknown Current Outpatient Medications Medication Sig aspirin, enteric coated (ASPIRIN, ENTERIC COATED) 81 mg EC tablet Take 81 mg by mouth. MOUNJARO 7.5 mg/0.5 mL pen injector Inject 7.5 mg subcutaneously. Cephalexin 500 mg tab Take 500 mg by mouth three times a day. lidocaine HCL 4 % ptmd Apply to affected area once daily. venlafaxine ER (EFFEXOR XR) 150 mg 24 hr capsule Take 150 mg by mouth every morning. carbidopa-levodopa (SINEMET 25-100) 25-100 mg per tablet Take 1.5 tablets by mouth three times a day. venlafaxine (EFFEXOR) 75 mg tablet estradiol (ESTRACE) 0.01 % (0.1 mg/gram) vaginal cream Use vaginally one time a week. metoprolol tartrate, short acting, (LOPRESSOR) 25 mg [...] LUTEIN ORAL) Take by mouth twice daily. No current facility-administered medications for this visit. Objective Movement Disorders Scales Performed: MDS-UPDRS Motor subscale condition of exam Medication Off/On/Naiive ON Time of UPDRS 1359 Time of Last Medication 1100 Last Medication [...] midway in the sequence. Arm Movements Left 3-Moderate. a) more than 5 interruptions during the movement or at least one longer arrest (freeze) in ongoing movement, b) moderate slowing, c) the amplitude decrements starting after the 1st supination-pronation sequence. Postural Tremor Hand Right 1-Slight. Tremor is [...] 1-Slight. < 1 cm in maximal amplitude. Pertinent Studies 02/26/[address] scan Impression: Chronic L1 vertebral body fracture which has progressed since 2021 with associated 6 mm retropulsion into the spinal canal. No acute process is noted. Multilevel degenerative disc disease. 02/18/[address] scan Impression: Negative for fracture or subluxation. 02/18/[address] Impression: No acute intracranial findings. Assessment and Plan: Assessment Ms. Barker is a right-handed 83 year old year old female with Parkinson's disease since 2013. She has been having a lot of falls, but is unable to start physical therapy as she was told she has a thoracic fracture and will be seeing a physician for this soon. We discussed possibly changing her Parkinson's disease medication but at this time, she would like to keep the dosing and schedule the same. The following are the current problems noted and addressed during this visit: Parkinson's disease without dyskinesia, with fluctuating manifestations (hcc) Depression with anxiety (primary encounter diagnosis) Plan 03/06/2024 Visit: Parkinson's disease: Continue current medication schedule Restart exercising when you are able Physical therapy when approved by physician you are seeing for the fracture you reported Depression and anxiety: Reach out to the therapist you have been seeing for a recommendation for a new one since she was promoted and you are not able to see her anymore Continue your medication schedule for these Updated Movement Disorders Medication Schedule: Medications 7am 11am 3pm 7pm Bedtime Sinemet 25/100 1.5 1 1 1 Effexor 150mg 1 Effexor 75mg 1 Mirtazapine 7.5mg 1 Level of service : 73797 ( 30-39 min). Time spent 34 min on the day of service, which included preparing to see the patient, [id number] patient care, completing clinical documentation, obtaining and/or reviewing separately obtained history, performing a medically appropriate examination, and counseling and educating the patient/family/caregiver. Gloria Perez APRN.ELDON documented in this encounter [facility] 03-06-2024 Note HNO ID: [id number] Author: GLORIA PEREZ APRN.CNP Service: ? Author Type: Nurse Practitioner Type: Progress Notes Filed: 03/11/2024 10:02 Note Text: [facility] - FOLLOW UP EVALUATION Primary Neurologist: Tyree Perez MD Primary BETHEL: ELDON Chicas DO [address] [place] [facility] [id number] Dear Honey Rabago DO: I had the pleasure of seeing Ms. Barker for follow-up today. As you know she is a 83 year old right-handed female with a history of Parkinson's disease since 2013. She is seen with her son. We had a visit using: Runa Subjective Previous Plan-10/25/2023 Visit: Parkinson's disease: Continue current medication schedule Restart exercising Please let me know if you change your mind about physical therapy Depression and anxiety: Continue seeing the therapist you have been seeing Continue your medication schedule Other: I have ordered a stat brain CT scan due to the fall and hitting your head, experiencing dizziness, and being on a blood thinner. Please remember our discussion and even if the CT is normal, sometimes brain bleeds can be delayed so if you have any of the changes we discussed, you need to be evaluated immediately Follow up with primary care provider for left leg swelling since this is not typically the side that swells Interval History: She said her cognition is bad especially her short term memory. She has fallen 4 times in the last month requiring ER visits as she hit her head with all of them. She has another compression fracture (thoracic), but her brain CT is ok. She is not doing physical therapy as when she was getting ready to schedule it is when she found out about the fracture. She will be following up with a physician soon for this and will start physical therapy when approved to do so. Movement Disorders Medications Schedule - as of the start of the visit: Medications 7am 11am 3pm 7pm Bedtime Sinemet 25/100 1.5 1 1 1 Effexor 150mg 1 Effexor 75mg 1 Mirtazapine 7.5mg 1 Parkinson's Motor Complications Medication benefit onset: (Comment: 15-60) Medication duration: (Comment: 3-3.75) Wearing off: yes (Comment: She will have tremor when it wears off as well as more difficulty doing things If she is busy, she will likely [...] Yes (mild) Difficulties turning in bed: Yes (moderate) Difficulties getting out of bed, car or chair: Yes (severe) Tremors/Gait/Balance Shaking or tremors: Yes (moderate) Both at rest and with activities. Walking and balance problems: Yes (moderate) Number of falls in the Last Month: 4 Gait freezing: Yes (slight) Autonomic/Pain Lightheadeness on standing: Yes (mild) Urinary problems: Yes (severe) She is incontinent. She has a UTI now and is on antibiotics. Constipation problems: Yes (moderate) Pain and other sensations: Yes (mild) Speech/Swallowing Speech problems: Yes (moderate) Drooling: Yes (moderate) Chewing and swallowing problems: Yes (slight) Sleep/Fatigue Sleep problems: 0 (none) Daytime sleepiness: Yes (mild) Fatigue: Yes (slight) Mood/Behavior Depression: Anxiety: GREGORY-7 Total Score: 11 usually representing moderate (10-14) anxiety. Finally, the following table shows the patient's overall global physical and mental health using the PROMIS scale: PROMIS-10 Flowsheet Row Distance Health from 03/06/2024 in Neurology Office Visit from 06/23/2023 in Neurology Global Physical Health T Score 37.4 34.9 Global Mental Health T Score 38.8 45.8 0-10 Standard Pain Scale 3 2 *PROMIS-10 scoring scale: mean = 50, over 50 is above average, under 50 is below average ALLERGIES Allergen Reactions Hydrocodone-Acetami* Mental Status Change Abilify [Aripiprazo* Contraindication-Medical Surgical People with Parkinson's disease should not take this or other antipsychotics except Nuplazid, Seroquel, and Clozaril can be prescribed. Adhesive Tape (Sridevi* Rash Bupropion Mental Status Change hallucinations Compazine [Prochlor* Contraindication-Medical Surgical This should not be given to people with Parkinson's disease. If not otherwise contraindicated, Zofran should be given instead. Haldol [Haloperidol] Contraindication-Medical Surgical People with Parkinson's disease should not take this or other antipsychotics except Nuplazid, Seroquel, and Clozaril can be prescribed. Latex, Natural Rubb* Rash Phenergan [Prometha* Contraindicati (more content not included)... [facility] 03-05-2024 Miscellaneous Notes Contact re: going off a call back to schedule OT for Parkinsons. He noted she had fallen again and has a compressed fracture right above her previous one. She was in the hospital re: late find off x-ray of 1st fracture and is in once again. He noted OT will have to be put on hold to start up due to falls. documented in this encounter [facility] 03-05-2024 Telephone encounter Note Contact re: going off a call back to schedule OT for Parkinsons. He noted she had fallen again and has a compressed fracture right above her previous one. She was in the hospital re: late find off x-ray of 1st fracture and is in once again. He noted OT will have to be put on hold to start up due to falls. [facility] 02-24-2024 Note HNO ID: [id number] Author: AUDREY TORRES APRN.ELDON Service: ? Author Type: Nurse Practitioner Type: Progress Notes Filed: 02/24/2024 15:47 Note Text: The patient did not show up for this appointment. [facility] 02-24-2024 History of Present illness Narrative The patient did not show up for this appointment. documented in this encounter [facility] 02-23-2024 Telephone encounter Note Spoke to son, transportation, and he scheduled her Eval on 02/27 w/ Betina Wise, OT. [facility] 02-23-2024 Miscellaneous Notes Spoke to son, transportation, and he scheduled her Eval on 02/27 w/ Betina Wise, OT. LM requesting a call back to schedule OT for Parkinson's. Tuesday w/ Lisa can be offered. documented in this encounter [facility] 02-22-2024 Telephone encounter Note LM requesting a call back to schedule OT for Parkinson's. Tuesday w/ Lisa can be offered. [facility] 02-21-2024 History of Present illness Narrative Images from the original note were not included. Alton Barker is a 83 y.o. female presents with chief complaint of 3 Month Follow Up HPI: HPI Patient fell Tuesday. She was seen at [facility] on 02/17. ER and CT are in chart. Labs not completed ptv. A1c today= 7.6 History of Present Illness The patient is an 83-year-old female who presents for evaluation of diabetes, Parkinson's disease, and leg swelling. She experienced a fall on Tuesday, which resulted in a head injury and back pain. The incident occurred when she tripped over a chair leg while attempting to reach her walker. She was subsequently taken to the emergency room at [facility]. She has been receiving physical therapy from 2 different companies, but she expressed dissatisfaction with the first provider due to their inflexible approach. She reports feeling fatigued after each therapy session. She prefers outpatient physical therapy and has previously worked with Topher Schulte, a physical therapist, whom she found beneficial. She also reports a lack of strength in her legs. She is currently on Mounjaro 5 mg, which she tolerates well without any associated nausea. She reports that the medication is expensive, with costs varying between $ 125 and $ 200 per month. She has lost weight, dropping from 244 pounds earlier this year to 227 pounds. Her A1c level has decreased from 9.2 in November to 7.6. She has not consumed breakfast or lunch today but admits to drinking half a bottle of root beer. She reports experiencing leg swelling, although it is less severe than before. She has not been wearing her compression hose recently. She is still seeing the professor of archaeology. She has a CT scan scheduled for the end of April. MEDICATIONS Current: Synthroid, atorvastatin, metformin, metoprolol, Mounjaro IMMUNIZATIONS She is up to date with her pneumonia and influenza vaccines. 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CMS/HCC) Chronic venous insufficiency Circulating anticoagulant disorder (CMS/HCC) 09/29/2020 Compression fracture of L1 lumbar vertebra (CMS/HCC) Coronary atherosclerosis of ute coronary artery (CMS/HCC) Current use of proton pump inhibitor Depression (CMS/HCC) Dermatophytosis of nail Esophageal dilatation Esophageal dysphagia Gait instability Gastroesophageal reflux disease without esophagitis GERD (gastroesophageal reflux disease) Hallux hammertoe, right History of DVT (deep vein thrombosis) Hyperlipidemia (CMS/HCC) Macular degeneration (senile) of retina Mild cognitive impairment Mixed hyperlipidemia (CMS/HCC) Multilevel degenerative disc disease Neuropathy Occipital neuralgia of right side On warfarin therapy Osteoarthritis involving multiple joints on both sides of body Osteoarthritis involving multiple joints on both sides of body Other seborrheic dermatitis Parkinson's disease (CMS/HCC) Posterior tibial tendinitis, left leg Primary osteoarthritis of left hand Pulmonary fibrosis (CMS/HCC) PVD (peripheral vascular disease) (CMS/HCC) Recurrent falls Severe obesity (BMI >= 40) (CMS/HCC) Sleep apnea Type 2 diabetes mellitus with other diabetic neurological complication (CMS/HCC) Type II diabetes mellitus (CMS/HCC) Urge incontinence Vaginitis, atrophic Vitamin D deficiency SURGICAL HISTORY: Past Surgical History: Procedure Laterality Date APPENDECTOMY CARDIAC CATHETERIZATION Left CATARACT EXTRACTION Bilateral 2013 CHOLECYSTECTOMY COLONOSCOPY 2010 FINGER NAIL SURGERY 09/2018 removal of ingrown toenails x4 on bilateral feet HEMORRHOIDECTOMY 1964 KNEE SURGERY OTHER SURGICAL HISTORY arthroscopy PULMONARY FUNCTION TEST - $50.00 STRESS TEST WITH MYOCARDIAL PERFUSION 2007 THYROIDECTOMY 2007 TONSILLECTOMY SOCIAL HISTORY: Social History Tobacco Use Smoking status: Never Smokeless tobacco: Never Vaping Use Vaping status: Never Used Substance Use Topics Alcohol use: Never Comment: caffeine: coffee 1-2 cups a day Drug use: Never Depression: Not at risk (07/29/2023) PHQ-2 PHQ-2 Score: 0 FAMILY HISTORY: Family History Problem Relation Name Age of Onset Cervical cancer Mother Brain cancer Mother Thyroid disease Sibling Diabetes Sibling MEDICATIONS: Current Outpatient Medications Medication Instructions aspirin 81 mg, Oral, Daily atorvastatin (LIPITOR) 40 mg, Oral, Every 24 hours biotin 5 mg, Oral, Daily RT Capsaicin-Cleansing Gel (Qutenza, 4 Patch,) 8 % patch 1 patch, Topical, Every 3 months, Follow instructions to prepare site. Prescriber to vijay area. Once applied, remove after 30 minutes and clean area with supplied gel. carbidopa-levodopa (Sinemet) 25-100 MG tablet 1.5 tablets, Oral, Every morning, Then 1 tablet TID cholecalciferol (Vitamin D-3) 50 MCG (1999 UT) capsule 1 capsule, Every 24 hours clotrimazole (Lotrimin) 1 % cream Topical, 2 times daily, Apply to vagina at bedtime for 10 days Continuous Glucose Sensor (FreeStyle Vivian 2 Sensor) misc 1 each, Other, Every 10 days cyanocobalamin (VITAMIN B-12) 1,000 mcg, Oral, Daily diclofenac sodium 2 g, Topical estradiol (Estrace) 0.1 MG/GM vaginal cream Apply to vagina 3x/week x 1month then 2x/week x 1 month then once weekly Fluocinolone Acetonide Scalp 0.01 % oil Apply to scalp at bedtime as needed for rough, scaly area fluocinonide (Lidex) 0.05 % external solution Apply to affected areas on the scalp every day prn flares ketoconazole (NIZOral) 2 % shampoo Lather on scalp 2-3 x weekly, leave on 5 min before rinsing levothyroxine (SYNTHROID, LEVOXYL) 75 mcg, Oral, Every morning, Take on an empty stomach. metFORMIN (GLUCOPHAGE) 500 mg, Oral, 2 times daily metoprolol tartrate (LOPRESSOR) 75 mg, Oral, Every 12 hours mirtazapine (REMERON) 7.5 mg, Oral, Nightly Mounjaro 5 mg, Subcutaneous, Weekly Multiple Vitamins-Minerals (PRESERVISION AREDS 2 PO) Oral, 2 times daily omeprazole (PRILOSEC) 20 mg, Oral, Every 24 hours polyethylene glycol, PEG, 3350 (MiraLax) 17 GM/SCOOP powder Every 24 hours triamcinolone (Kenalog) 0.5 % ointment Topical, 2 times daily, Use Muecs coupon
Use bid for 2 weeks to vagina venlafaxine (EFFEXOR) 75 mg, Oral, Daily venlafaxine XR (EFFEXOR XR) 150 mg, Oral, Daily RT warfarin (Coumadin) 2 MG tablet take 1 tablet by mouth once daily EXCEPT TUESDAY (ON TUESDAY TAKE WARFARIN 4MG) warfarin (Coumadin) 3 MG tablet Take as directed per weekly INR report ALLERGIES: Allergies Allergen Reactions Hydrocodone-Acetaminophen Other Atorvastatin Bupropion Other hallucinations Other Reaction(s): Hallucinating Hydrocodone Unknown Other Reaction(s): Unknown Reaction Rosuvastatin Unknown Latex Rash Other Rash PHYSICAL EXAM: Visit Vitals Smoking Status Never BP Readings from Last 3 Encounters: 12/05/23 118/72 11/23/23 140/60 11/15/23 130/70 Wt Readings from Last 3 Encounters: 12/05/23 239 lb 11/15/23 240 lb 08/16/23 244 lb Physical Exam Constitutional: Appearance: Normal appearance. Comments: Son present Neck: Vascular: No carotid bruit. Cardiovascular: Rate and Rhythm: Normal rate and regular rhythm. Pulmonary: Effort: Pulmonary effort is normal. Breath sounds: Normal breath sounds. Abdominal: General: Bowel sounds are normal. Palpations: Abdomen is soft. Musculoskeletal: General: No swelling (trace edema in legs). Neurological: Mental Status: She is alert. Physical Exam Lungs are clear. Vital Signs Weight is 227 pounds. Results Laboratory Studies A1c is 7.6. ASSESSMENT AND PLAN: Assessment & Plan 1. Diabetes mellitus. Her A1c has improved from 9.2 to 7.6. She has lost weight, dropping from 244 pounds earlier this year to 227 pounds. She is advised to eliminate sugary drinks from her diet and continue with diet cokes for now. Recommended to drink water, sparkling water, black coffee, tea, sweet tea, green tea, and herbal tea. The dosage of Mounjaro will be increased to 7.5 mg weekly for 3 months. [facility] Blood work, including a complete blood count, kidney function tests, and cholesterol levels, will be conducted today. If her A1c does not improve, further adjustments to her medication will be considered. 2. Parkinson's disease. A referral to physical therapy with Topher Schulte has been made to work on balance and strengthening exercises. This is expected to help with muscle building and cognition. 3. Leg swelling. She is advised to perform leg exercises to help reduce swelling and build muscle. Physical therapy will also address this issue. 4. Health maintenance. She is up to date with her pneumonia and influenza vaccines. She is advised to get the RSV vaccine. 5. Frequent falls Recommend PT referral for balance, strengthening. Diagnosis Plan 1. Morbid obesity ([facility]) Ambulatory referral to Physical Therapy 2. Type 2 diabetes mellitus with other specified complication, without long-term current use of insulin ([facility]) POCT glycated hemoglobin, total docked device Ambulatory referral to Physical Therapy Tirzepatide (Mounjaro) 7.5 MG/0.5ML solution auto-injector 3. Parkinson's disease without dyskinesia or fluctuating manifestations ([facility]) Ambulatory referral to Physical Therapy 4. Frequent falls Ambulatory referral to Physical Therapy 5. Acquired hypothyroidism ([facility]) TSH 6. Type 2 diabetes mellitus with hyperglycemia ([facility]) 7. Immunodeficiency due to conditions classified elsewhere ([facility]) Patient is here for follow up of chronic conditions. I am following Dr Rabago's established plan of care for these issues. Dr Rabago is in the office suite today and is supervising patient care. documented in this encounter [facility] 02-16-2024 History of Present illness Narrative Images from the original note were not included. HPI: Patient presents today for routine toenail care and would like to order shoes as well. Diabetic/Routine Nail Care: Patient presents in office today for diabetic nail care. Rt foot feels like its sliding in her shoes. Pt feet are also swelling more than before. She has no other concerns today. Location: nails on bilateral feet. Severity of symptoms: mild. Onset gradual. Status: no change. Context: hard to trim, hard to reach. NAILS: thickened, discolored, pain. Relieved by: debridement, filing down nails, clipping nails. History of ulcers/wounds: no. Recent BS reading, if diabetic: 146 yesterday PCP: [facility]. Date of Last visit: 11/15/2023 Aggravated by: shoe gear, pressure. Risk factors: diabetes. Patient would like to be fitted for a new pair of DM shoes and inserts at today's office visit. The catalog's were dispensed and patient is going to select a pair and be fitted. They are aware of the required paperwork that needs to be completed to order these devices and the timeframe associated with this. Allergies: Hydrocodone Bitartrate Rosuvastatin Calcium Adhesive Tape: Rash Examination: General Examination: GENERAL EXAMINATIONalert, well hydrated, in no distress , awake, aware of surroundings. FOOT EXAM: Date of Last Foot Exam 02/16/24 Vascular: DORSALIS PEDIS PULSE:1/4, bilaterally. POSTERIOR TIBIAL PULSE:0/4, bilaterally. TEMPERATURE GRADIENT:warm to cool, bilaterally. EDEMA:to the bilateral lower extremity/ankle. CAPILLARY FILLING TIME(sec):less than 3 seconds, bilateral. Neurologic: VIBRATORY:bilateral sensory peripheral neuropathy. SEMMES-DANILO 5.07 MONOFILAMENTdecreased bilaterally. Dermatologic: HYPERKERATOSIS:none. NAIL PATHOLOGY:digits 1-5 bilateral are intact.. SKIN PATHOLOGY:bilaterally: thin, shiny, atrophic, decreased pedal hair growth, pigment/discoloration changes, venous insufficiency. Nail Pathology: Left Foot: 1 (great toe)Long, Thick, Crumbly, Deformed, Discolored, Brittle, Dystrophic. 2Long, Thick, Crumbly, Deformed, Discolored, Brittle, Dystrophic. 3Long, Thick, Crumbly, Deformed, Discolored, Brittle, Dystrophic. 4Long, Thick, Crumbly, Deformed, Discolored, Brittle, Dystrophic. 5Long, Thick, Crumbly, Deformed, Discolored, Brittle, Dystrophic. Nail Pathology: Right Foot: 1 (great toe)Long, Thick, Crumbly, Deformed, Discolored, Brittle, Dystrophic . 2Long, Thick, Crumbly, Deformed, Discolored, Brittle, Dystrophic . 3Long, Thick, Crumbly, Deformed, Discolored, Brittle, Dystrophic . 4Long, Thick, Crumbly, Deformed, Discolored, Brittle, Dystrophic . 5Long, Thick, Crumbly, Deformed, Discolored, Brittle, Dystrophic . Ankle / Foot: RANGE OF MOTION: dorsiflexion, plantarflexion, eversion, inversion. MUSCLE STRENGTH: 5/5 Orthopedic: FOOT MORPHOLOGY:normal . DEFORMITIES:acquired digital deformities to bilateral digits 2-5, bilateral hallux abducto valgus. Dorsal dislocation of the left second digit with rigid contracture at the PIPJ, medial deviation of the left second toe . PAIN ELICITED WITH PALPATION OF: mild pain with palpation to the plantar aspect of the left midfoot. No pain along the course of the posterior tibial tendon left foot. Modifier: -Q8. Assessments: 1. Dermatophytosis of nail - B35.1 2. Type 2 diabetes mellitus with diabetic neuropathy - E11.40 (Primary) 3. Foot pain, left - M79.672 4. Foot pain, right - M79.671 5. Hammertoe, right - M20.41 6. Hammertoe, left - M20.42 7. Circulating anticoagulants - D68.318 8. PVD (peripheral vascular disease) - I73.9 9. Lesion of left plantar nerve - G57.62 10. Lesion of right plantar nerve - G57.61 11. Ingrowing nail - L60.0 12. Posterior tibial tendinitis, left leg - M76.822 Plan: 1.Dermatophytosis of nail Notes: 1. Nails were debrided in length and thickness by manual and mechanical means. 2. Advised patient on continued proper diabetic foot care including daily monitoring of their feet for any new complaints or concerns that may arise. 3. Discussed importance of tight blood sugar control to prevent future complications. 4. RTC: 9-12 weeks or as needed if problems arise.. documented in this encounter [facility] 11-23-2023 History of Present illness Narrative Images from the original note were not included. Alton Barker is a 83 y.o. female presents with chief complaint of String hanging out of vagina HPI: HPI History of Present Illness The patient presents for evaluation of multiple medical concerns. 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CMS/HCC) Chronic venous insufficiency Circulating anticoagulant disorder ([facility]/HCC) 09/29/2020 Compression fracture of L1 lumbar vertebra ([facility]/HCC) Coronary atherosclerosis of ute coronary artery ([facility]/HCC) Current use of proton pump inhibitor Depression (CMS/HCC) Dermatophytosis of nail Esophageal dilatation Esophageal dysphagia Gait instability Gastroesophageal reflux disease without esophagitis GERD (gastroesophageal reflux disease) Hallux hammertoe, right History of DVT (deep vein thrombosis) Hyperlipidemia (CMS/HCC) Macular degeneration (senile) of retina Mild cognitive impairment Mixed hyperlipidemia (CMS/HCC) Multilevel degenerative disc disease Neuropathy Occipital neuralgia of right side On warfarin therapy Osteoarthritis involving multiple joints on both sides of body Osteoarthritis involving multiple joints on both sides of body Other seborrheic dermatitis Parkinson's disease (CMS/HCC) Posterior tibial tendinitis, left leg Primary osteoarthritis of left hand Pulmonary fibrosis (CMS/HCC) PVD (peripheral vascular disease) (CMS/HCC) Recurrent falls Severe obesity (BMI >= 40) (CMS/HCC) Sleep apnea Type 2 diabetes mellitus with other diabetic neurological complication (CMS/HCC) Type II diabetes mellitus (CMS/HCC) Urge incontinence Vaginitis, atrophic Vitamin D deficiency SURGICAL HISTORY: Past Surgical History: Procedure Laterality Date APPENDECTOMY CARDIAC CATHETERIZATION Left CATARACT EXTRACTION Bilateral 2013 CHOLECYSTECTOMY COLONOSCOPY 2011 FINGER NAIL SURGERY 09/2018 removal of ingrown toenails x4 on bilateral feet HEMORRHOIDECTOMY 1964 KNEE SURGERY OTHER SURGICAL HISTORY arthroscopy PULMONARY FUNCTION TEST - $50.00 STRESS TEST WITH MYOCARDIAL PERFUSION 2007 THYROIDECTOMY 2007 TONSILLECTOMY SOCIAL HISTORY: Social History Tobacco Use Smoking status: Never Smokeless tobacco: Never Vaping Use Vaping status: Never Used Substance Use Topics Alcohol use: Never Comment: caffeine: coffee 1-2 cups a day Drug use: Never Depression: Not at risk (07/29/2023) PHQ-2 PHQ-2 Score: 0 FAMILY HISTORY: Family History Problem Relation Name Age of Onset Cervical cancer Mother Brain cancer Mother Thyroid disease Sibling Diabetes Sibling MEDICATIONS: Current Outpatient Medications Medication Instructions aspirin 81 mg, Oral, Daily atorvastatin (LIPITOR) 40 mg, Oral, Every 24 hours biotin 5 mg, Oral, Daily RT Capsaicin-Cleansing Gel (Qutenza, 4 Patch,) 8 % patch 1 patch, Topical, Every 3 months, Follow instructions to prepare site. Prescriber to vijay area. Once applied, remove after 30 minutes and clean area with supplied gel. carbidopa-levodopa (Sinemet) 25-100 MG tablet 1.5 tablets, Oral, Every morning, Then 1 tablet TID cholecalciferol (Vitamin D-3) 50 MCG (1999 UT) capsule 1 capsule, Every 24 hours clotrimazole (Lotrimin) 1 % cream Topical, 2 times daily, Apply to vagina at bedtime for 10 days Continuous Glucose Sensor (FreeStyle Vivian 2 Sensor) misc 1 each, Other, Every 10 days cyanocobalamin (VITAMIN B-12) 1,000 mcg, Oral, Daily diclofenac sodium 2 g, Topical estradiol (Estrace) 0.1 MG/GM vaginal cream Apply to vagina 3x/week x 1month then 2x/week x 1 month then once weekly fluconazole (DIFLUCAN) 150 mg, Oral, Once Fluocinolone Acetonide Scalp 0.01 % oil Apply to scalp at bedtime as needed for rough, scaly area fluocinonide (Lidex) 0.05 % external solution Apply to affected areas on the scalp every day prn flares ketoconazole (NIZOral) 2 % shampoo Lather on scalp 2-3 x weekly, leave on 5 min before rinsing levothyroxine (SYNTHROID, LEVOXYL) 75 mcg, Oral, Every morning, Take on an empty stomach. metFORMIN (GLUCOPHAGE) 500 mg, Oral, 2 times daily metoprolol tartrate (LOPRESSOR) 75 mg, Oral, Every 12 hours mirtazapine (REMERON) 7.5 mg, Oral, Nightly Mounjaro 2.5 mg, Subcutaneous, Weekly Multiple Vitamins-Minerals (PRESERVISION AREDS 2 PO) Oral, 2 times daily omeprazole (PRILOSEC) 20 mg, Oral, Every 24 hours polyethylene glycol, PEG, 3350 (MiraLax) 17 GM/SCOOP powder Every 24 hours triamcinolone (Kenalog) 0.5 % ointment Topical, 2 times daily, Use [employer] coupon
Use bid for 2 weeks to vagina venlafaxine (EFFEXOR) 75 mg, Oral, Daily venlafaxine XR (EFFEXOR XR) 150 mg, Oral, Daily RT warfarin (Coumadin) 2 MG tablet take 1 tablet by mouth once daily EXCEPT TUESDAY (ON TUESDAY TAKE WARFARIN 4MG) ALLERGIES: Allergies Allergen Reactions Hydrocodone-Acetaminophen Other Atorvastatin Bupropion Other hallucinations Other Reaction(s): Hallucinating Hydrocodone Unknown Other Reaction(s): Unknown Reaction Rosuvastatin Unknown Latex Rash Other Rash PHYSICAL EXAM: Visit Vitals BP 140/60 Smoking Status Never BP Readings from Last 3 Encounters: 11/23/23 140/60 11/15/23 130/70 08/16/23 122/68 Wt Readings from Last 3 Encounters: 11/15/23 240 lb 08/16/23 244 lb 07/29/23 240 lb Physical Exam Physical Exam Genitourinary examination reveals atrophic vaginitis changes. Erythema is present around the vagina, but it is not painful to touch. A small amount of white discharge is present, but no odor. Results ASSESSMENT AND PLAN: Assessment & Plan 1. Atrophic vaginitis. There are atrophic changes with erythema around the vagina, but it is not painful to the touch. A small amount of white discharge is present without odor. This acute episode is likely due to a yeast infection secondary to uncontrolled diabetes. Treatment includes oral antifungal Diflucan 150 mg for two doses and high potency steroid ointment for 2 weeks. The possibility of using vaginal estrogen for long-term maintenance was also discussed. If there is no improvement, a SENIOR ECONOMIST referral will be considered. She will provide an update on her condition in 1 week. Symptoms of burning of vagina with white discharge. 2. Vaginal yeast infection. The yeast infection is likely secondary to uncontrolled diabetes. Treatment includes oral antifungal Diflucan 150 mg for two doses and high potency steroid ointment for 2 weeks. If there is no improvement, a SENIOR ECONOMIST referral will be considered. She will provide an update on her condition in 1 week. 3. Uncontrolled diabetes. She has just received Mounjaro and started using it. Diagnosis Plan 1. Vaginal yeast infection fluconazole (Diflucan) 150 MG tablet 2. Atrophic vaginitis triamcinolone (Kenalog) 0.5 % ointment 3. Diabetic peripheral neuropathy associated with type 2 diabetes mellitus ([facility]) documented in this encounter [facility] 11-17-2023 History of Present illness Narrative Images from the original note were not included. HPI: Patient presents today for routine toenail care and would like to order shoes as well. Diabetic/Routine Nail Care: Patient presents in office today for diabetic nail care. Rt foot feels like its sliding in her shoes. Pt feet are also swelling more than before. She has no other concerns today. Location: nails on bilateral feet. Severity of symptoms: mild. Onset gradual. Status: no change. Context: hard to trim, hard to reach. NAILS: thickened, discolored, pain. Relieved by: debridement, filing down nails, clipping nails. History of ulcers/wounds: no. Recent BS reading, if diabetic: 146 yesterday PCP: [facility]. Date of Last visit: 11/15/2023 Aggravated by: shoe gear, pressure. Risk factors: diabetes. Patient would like to be fitted for a new pair of DM shoes and inserts at today's office visit. The catalog's were dispensed and patient is going to select a pair and be fitted. They are aware of the required paperwork that needs to be completed to order these devices and the timeframe associated with this. Allergies: Hydrocodone Bitartrate Rosuvastatin Calcium Adhesive Tape: Rash Examination: General Examination: GENERAL EXAMINATIONalert, well hydrated, in no distress , awake, aware of surroundings. FOOT EXAM: Date of Last Foot Exam 11/17/23 Vascular: DORSALIS PEDIS PULSE:1/4, bilaterally. POSTERIOR TIBIAL PULSE:0/4, bilaterally. TEMPERATURE GRADIENT:warm to cool, bilaterally. EDEMA:to the bilateral lower extremity/ankle. CAPILLARY FILLING TIME(sec):less than 3 seconds, bilateral. Neurologic: VIBRATORY:bilateral sensory peripheral neuropathy. SEMMES-DANILO 5.07 MONOFILAMENTdecreased bilaterally. Dermatologic: HYPERKERATOSIS:none. NAIL PATHOLOGY:digits 1-5 bilateral are intact.. SKIN PATHOLOGY:bilaterally: thin, shiny, atrophic, decreased pedal hair growth, pigment/discoloration changes, venous insufficiency. Nail Pathology: Left Foot: 1 (great toe)Long, Thick, Crumbly, Deformed, Discolored, Brittle, Dystrophic. 2Long, Thick, Crumbly, Deformed, Discolored, Brittle, Dystrophic. 3Long, Thick, Crumbly, Deformed, Discolored, Brittle, Dystrophic. 4Long, Thick, Crumbly, Deformed, Discolored, Brittle, Dystrophic. 5Long, Thick, Crumbly, Deformed, Discolored, Brittle, Dystrophic. Nail Pathology: Right Foot: 1 (great toe)Long, Thick, Crumbly, Deformed, Discolored, Brittle, Dystrophic . 2Long, Thick, Crumbly, Deformed, Discolored, Brittle, Dystrophic . 3Long, Thick, Crumbly, Deformed, Discolored, Brittle, Dystrophic . 4Long, Thick, Crumbly, Deformed, Discolored, Brittle, Dystrophic . 5Long, Thick, Crumbly, Deformed, Discolored, Brittle, Dystrophic . Ankle / Foot: RANGE OF MOTION: dorsiflexion, plantarflexion, eversion, inversion. MUSCLE STRENGTH: 5/5 Orthopedic: FOOT MORPHOLOGY:normal . DEFORMITIES:acquired digital deformities to bilateral digits 2-5, bilateral hallux abducto valgus. Dorsal dislocation of the left second digit with rigid contracture at the PIPJ, medial deviation of the left second toe . PAIN ELICITED WITH PALPATION OF: mild pain with palpation to the plantar aspect of the left midfoot. No pain along the course of the posterior tibial tendon left foot. Modifier: -Q8. Assessments: 1. Dermatophytosis of nail - B35.1 2. Type 2 diabetes mellitus with diabetic neuropathy - E11.40 (Primary) 3. Foot pain, left - M79.672 4. Foot pain, right - M79.671 5. Hammertoe, right - M20.41 6. Hammertoe, left - M20.42 7. Circulating anticoagulants - D68.318 8. PVD (peripheral vascular disease) - I73.9 9. Lesion of left plantar nerve - G57.62 10. Lesion of right plantar nerve - G57.61 11. Ingrowing nail - L60.0 12. Posterior tibial tendinitis, left leg - M76.822 Plan: 1.Dermatophytosis of nail Notes: 1. Nails were debrided in length and thickness by manual and mechanical means. 2. Advised patient on continued proper diabetic foot care including daily monitoring of their feet for any new complaints or concerns that may arise. 3. Discussed importance of tight blood sugar control to prevent future complications. 4. RTC: 9-12 weeks or as needed if problems arise.. Diabetes: 1. A Diabetic Foot Screening Exam was performed and the patient was educated on the foot complications related to Diabetes. Instructed to contact our office if any foot problems develop before next visit. 2. Patient was instructed on the continued importance of diabetic foot care along with proper diet and keeping their blood sugar under control to prevent complications. 3. Patient would like to proceed with extra depth diabetic shoes and insoles. We discussed the needed paperwork from their PCP in order to proceed with ordering these if they would like to obtain them. The patient fits the criteria for shoes and inserts based upon diabetes, foot deformities, neuropathy. Patient was fitted in length and width of each foot to determine sizine. Shoes will be ordered along [facility] 3 pairs of heat molded insoles. 4. Patient will be contacted when the necessary paperwork is completed to schedule an appointment for pick-up. Neuropathy: Unfortunately the Marlon is not covered by her insurance, it is non-formulary. She does not want to proceed with application due to the cost at this time. documented in this encounter [facility] 11-16-2023 Telephone encounter Note Please fix the directions for this medication. The pharmacist said it is unclear. Thank you. [facility] 11-16-2023 Miscellaneous Notes Please fix the directions for this medication. The pharmacist said it is unclear. Thank you. documented in this encounter [facility] 11-15-2023 History of Present illness Narrative Images from the original note were not included. Alton Barker is a 83 y.o. female presents with chief complaint of 3 month follow up HPI: HPI A1c = 9.2% Patient was experiencing vaginal itching - maybe yeast? Keeps having them on and off. History of Present Illness The patient presents for evaluation of multiple medical concerns. She is accompanied by her son. She has been under the care of Dr. Sherman for her lung condition, which has shown improvement. However, she experiences intermittent episodes of breathlessness, making it difficult for her to speak or walk short distances. She reports a significant weight loss following a back injury but has since regained some weight. Her diet remains unchanged. She had a recent emergency room visit due to a spike in her blood sugar levels, reaching nearly 400. She is currently on metformin 500 mg twice daily but experienced diarrhea when the dose was increased. To manage this, she takes MiraLAX daily. She also takes Januvia, which she finds costly. She has been dealing with a yeast infection, which is gradually improving without any topical treatment. She is also on omeprazole for acid reflux. She requests that all her prescriptions and Vivian sensors be sent to [facility]. She has not received her influenza vaccine this year. IMMUNIZATIONS She had a couple of pneumonia vaccines in 2013 and 2014. 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CMS/HCC) Chronic venous insufficiency Circulating anticoagulant disorder (CMS/HCC) 09/29/2020 Compression fracture of L1 lumbar vertebra (CMS/HCC) Coronary atherosclerosis of ute coronary artery (CMS/HCC) Current use of proton pump inhibitor Depression (CMS/HCC) Dermatophytosis of nail Esophageal dilatation Esophageal dysphagia Gait instability Gastroesophageal reflux disease without esophagitis GERD (gastroesophageal reflux disease) Hallux hammertoe, right History of DVT (deep vein thrombosis) Hyperlipidemia (CMS/HCC) Macular degeneration (senile) of retina Mild cognitive impairment Mixed hyperlipidemia (CMS/HCC) Multilevel degenerative disc disease Neuropathy Occipital neuralgia of right side On warfarin therapy Osteoarthritis involving multiple joints on both sides of body Osteoarthritis involving multiple joints on both sides of body Other seborrheic dermatitis Parkinson's disease (CMS/HCC) Posterior tibial tendinitis, left leg Primary osteoarthritis of left hand Pulmonary fibrosis (CMS/HCC) PVD (peripheral vascular disease) (CMS/HCC) Recurrent falls Severe obesity (BMI >= 40) (CMS/HCC) Sleep apnea Type 2 diabetes mellitus with other diabetic neurological complication ([facility]/HCC) Type II diabetes mellitus ([facility]/HCC) Urge incontinence Vaginitis, atrophic Vitamin D deficiency SURGICAL HISTORY: Past Surgical History: Procedure Laterality Date APPENDECTOMY CARDIAC CATHETERIZATION Left CATARACT EXTRACTION Bilateral 2012 CHOLECYSTECTOMY COLONOSCOPY 2010 FINGER NAIL SURGERY 09/2018 removal of ingrown toenails x4 on bilateral feet HEMORRHOIDECTOMY 1964 KNEE SURGERY OTHER SURGICAL HISTORY arthroscopy PULMONARY FUNCTION TEST - $50.00 STRESS TEST WITH MYOCARDIAL PERFUSION 2007 THYROIDECTOMY 2007 TONSILLECTOMY SOCIAL HISTORY: Social History Tobacco Use Smoking status: Never Smokeless tobacco: Never Vaping Use Vaping status: Never Used Substance Use Topics Alcohol use: Never Comment: caffeine: coffee 1-2 cups a day Drug use: Never Depression: Not at risk (07/29/2023) PHQ-2 PHQ-2 Score: 0 FAMILY HISTORY: Family History Problem Relation Name Age of Onset Cervical cancer Mother Brain cancer Mother Thyroid disease Sibling Diabetes Sibling MEDICATIONS: Current Outpatient Medications Medication Instructions aspirin 81 mg, Oral, Daily RT atorvastatin (LIPITOR) 40 mg, Oral, Every 24 hours biotin 5 mg, Oral, Daily RT Capsaicin-Cleansing Gel (Qutenza, 4 Patch,) 8 % patch 1 patch, Topical, Every 3 months, Follow instructions to prepare site. Prescriber to vijay area. Once applied, remove after 30 minutes and clean area with supplied gel. carbidopa-levodopa (Sinemet) 25-100 MG tablet 1.5 tablets, Oral, Every morning, Then 1 tablet TID cholecalciferol (Vitamin D-3) 50 MCG (1999 UT) capsule 1 capsule, Every 24 hours Continuous Blood Gluc Sensor (FreeStyle Vivian 2 Sensor) [facility] [place] 1 SENSOR to back OF UPPER ARM REMOVE AND REPLACE every 14 days cyanocobalamin (VITAMIN B-12) 1,000 mcg, Oral, Daily diclofenac sodium 2 g, Topical estradiol (Estrace) 0.1 MG/GM vaginal cream Apply to vagina 3x/week x 1month then 2x/week x 1 month then once weekly Fluocinolone Acetonide Scalp 0.01 % oil Apply to scalp at bedtime as needed for rough, scaly area fluocinonide (Lidex) 0.05 % external solution Apply to affected areas on the scalp every day prn flares Januvia 50 mg, Oral, Daily RT, Take 50 mg by mouth in the morning. Januvia 50 mg, Oral, Every morning ketoconazole (NIZOral) 2 % shampoo Lather on scalp 2-3 x weekly, leave on 5 min before rinsing levothyroxine (SYNTHROID, LEVOXYL) 75 mcg, Oral, Every morning, Take on an empty stomach. metFORMIN (GLUCOPHAGE) 500 mg, Oral, 2 times daily metoprolol tartrate (LOPRESSOR) 75 mg, Oral, Every 12 hours mirtazapine (REMERON) 7.5 mg, Oral, Nightly Multiple Vitamins-Minerals (PRESERVISION AREDS 2 PO) Oral, 2 times daily omeprazole (PRILOSEC) 20 mg, Oral, Every 24 hours polyethylene glycol, PEG, 3350 (MiraLax) 17 GM/SCOOP powder Every 24 hours venlafaxine (EFFEXOR) 75 mg, Oral, Daily venlafaxine XR (EFFEXOR XR) 150 mg, Oral, Daily RT warfarin (Coumadin) 2 MG tablet take 1 tablet by mouth once daily EXCEPT TUESDAY (ON TUESDAY TAKE WARFARIN 4MG) warfarin (Coumadin) 4 MG tablet Take every .
Pt takes Warfarin 2mg daily except ALLERGIES: Allergies Allergen Reactions Hydrocodone-Acetaminophen Other Atorvastatin Bupropion Other hallucinations Other Reaction(s): Hallucinating Hydrocodone Unknown Other Reaction(s): Unknown Reaction Rosuvastatin Unknown Latex Rash Other Rash PHYSICAL EXAM: Visit Vitals Smoking Status Never BP Readings from Last 3 Encounters: 08/16/23 122/68 07/29/23 110/60 03/28/23 110/60 Wt Readings from Last 3 Encounters: 08/16/23 244 lb 07/29/23 240 lb 03/28/23 230 lb Physical Exam Physical Exam Patient is accompanied by her son, appears well, and has obesity. Mood and affect are normal. Patient walks with a walker. Lungs are clear. Heart has a regular rate without murmur. There is some nonpitting edema in bilateral lower legs. Cognition is normal. Results Laboratory Studies A1c is 9.2. ASSESSMENT AND PLAN: Assessment & Plan Diagnosis Plan 1. Parkinson's disease without dyskinesia or fluctuating manifestations ([facility]) 2. Type 2 diabetes mellitus with other specified complication, unspecified whether skilled nursing insulin use ([facility]) POCT Glycated hemoglobin, total Tirzepatide (Mounjaro) 2.5 MG/0.5ML solution pen-injector Comprehensive metabolic panel CBC and differential Hemoglobin a1c with eag Lipid panel Comprehensive metabolic panel CBC and differential Hemoglobin a1c with eag Lipid panel 3. GERMANIA (obstructive sleep apnea) 4. Pulmonary fibrosis ([facility]) 5. Vaginal yeast infection clotrimazole (Lotrimin) 1 % cream 6. Vitamin D deficiency Vitamin D 25 hydroxy Total Vitamin D 25 hydroxy Total 7. Vitamin B12 deficiency Vitamin B12 Vitamin B12 8. Need for vaccination with 20-polyvalent pneumococcal conjugate vaccine Pneumococcal conjugate vaccine 20-valent IM Patient is here for follow up of chronic conditions. I am following Dr Rabago's established plan of care for these issues. Dr Rabago is in the office suite today and is supervising patient care. 1. Type 2 Diabetes Mellitus. Her A1c has increased to 9.2, and she experienced a recent blood sugar spike to nearly 400. She is currently on metformin 500 mg twice a day. Discussed the option of starting Mounjaro, a weekly injectable, which could help lower blood sugar levels and aid in weight loss. Potential side effects, including gastrointestinal issues such as nausea, diarrhea, or constipation, were discussed. She will continue metformin for now. If insurance approves, Mounjaro will be started, and she will continue Januvia until the new medication is available. 2. Obesity. She has gained significant weight over the past two months despite no changes in her diet. Starting Mounjaro may help with weight loss. She is advised to avoid high-carb foods and sugary desserts and to opt for sugar-free alternatives when possible. 3. Parkinson's Disease. She is doing well on her current regimen. Continue Sinemet as prescribed. She follows up with Dr. Perez in neurology. 4. Obstructive Sleep Apnea. She remains compliant with her therapy. Weight loss is recommended to improve her condition. 5. Pulmonary Fibrosis. She has idiopathic pulmonary fibrosis and is followed by Dr. Sherman in pulmonology. Recent CT scans show less fibrosis compared to previous ones. She will continue to follow up with pulmonology and repeat the CT scan in 6 months. 6. Vaginal Yeast Infection. She reports that the infection is clearing up on its own. A topical antifungal will be prescribed to use if symptoms flare up again. Better blood sugar control should help prevent future infections. 7. Health Maintenance. Prevnar 20 was administered today to provide long-lasting immunity against pneumonia. She is recommended to get the influenza and RSV vaccines at her assisted living facility or pharmacy. Follow-up The patient will follow up in 3 months. documented in this encounter [facility] 10-25-2023 Instructions Gloria Perez APRN.[facility] - 10/25/2023 2:18 PM EDT It was a pleasure to see you today. We addressed the following diagnoses: Injury of head, initial encounter (primary encounter diagnosis) Parkinson's disease without dyskinesia, with fluctuating manifestations (hcc) My recommendations are as follows: 10/25/2023 Visit: Parkinson's disease: Continue current medication schedule Restart exercising Please let me know if you change your mind about physical therapy Depression and anxiety: Continue seeing the therapist you have been seeing Continue your medication schedule Other: I have ordered a stat brain CT scan due to the fall and hitting your head, experiencing dizziness, and being on a blood thinner. Please remember our discussion and even if the CT is normal, sometimes brain bleeds can be delayed so if you have any of the changes we discussed, you need to be evaluated immediately Follow up with primary care provider for left leg swelling since this is not typically the side that swells Movement Disorders Medication Schedule: Medications 7am 11am 3pm 7pm Bedtime Sinemet 25/100 1.5 1 1 1 Effexor 150mg 1 Effexor 75mg 1 Mirtazapine 7.5mg 1 No follow-ups on file.Return at or around: 12/11/24 If there are any concerns before your next visit, please call or you can send a message through [employer]. You can also now schedule and select appointments through [employer]. Gloria Perez APRN.[employer] documented in this encounter [facility] 10-25-2023 History of Present illness Narrative [facility] - FOLLOW UP EVALUATION Honey Rabago DO [address] [place] [address] Dear Honey Rabago DO: I had the pleasure of seeing Ms. Barker for follow-up today. As you know she is a 83 year old right-handed female with a history of Parkinson's disease since 2013. She is seen with her son. Subjective Previous Plan-06/23/2023 Visit: Parkinson's disease: Change the timing of the Sinemet to that noted below. Please let me know if you change your mind about physical therapy and if the professor of archaeology approves Depression and anxiety: Continue Venlafaxine (Effexor) [...] use your Cpap and therefore feel better Interval History: She has been more sad lately as one of the ladies she is close to at her facility left three weeks ago and she does not know where she is at. Her son said she has mentioned that she is feeling weak. She has not had physical therapy lately and is not exercising. Movement Disorders Medications Schedule - as of the start of the visit: Medications 7am 11am 3pm 7pm Bedtime Sinemet 25/100 1.5 1 1 1 Effexor 150mg 1 Effexor 75mg 1 Mirtazapine 7.5mg 1 Parkinson's Motor Complications Medication benefit onset: 5 minutes Medication duration: 3.5 hours Wearing off: yes (Comment: She will have [...] with doing hobbies and other activities: Yes (moderate) Difficulties turning in bed: Yes (slight) Difficulties getting out of bed, car or chair: Yes (moderate) Tremors/Gait/Balance Shaking or tremors: Yes (mild) Walking and balance problems: Yes (moderate) Number of falls in the Last Month: 1 She fell onto her knees yesterday and hit her head and has been dizzy since though it was worse yesterday. Her knee is also hurt. Gait freezing: Yes (slight) Autonomic/Pain Lightheadeness on standing: Yes (mild) Urinary problems: Yes (severe) Chronic Constipation problems: Yes (slight) Pain and other sensations: Yes (moderate) Speech/Swallowing Speech problems: Yes (slight) Drooling: Yes (moderate) Chewing and swallowing problems: Yes (slight) Sleep/Fatigue Sleep problems: Yes (moderate) This has been better lately. Daytime sleepiness: Yes (mild) Fatigue: Yes (slight) In addition, the following non-motor symptoms and palliative concerns were evaluated: Sleep/Fatigue: REM sleep behavior disorder: No She is not sure but is not tangled in her sheets, bed is not a mess, she has not fallen out of bed, etc. Restless Legs Syndrome: No Leg swelling: Intermittent Impaired sense of smell: Yes Cognition: Cognitive impairment: yes She and her son feel it is about the same. MoCA Cognitive assessment: 29 (02/03/2021) Hallucinations and delusions: no Apathy: She is interested in the facility and her son said she is more interested in keeping her room up than she had been. Impulse control disorder: No Not currently a [...] No Therapy and Exercise: Last PT Date: spring Last OT Date: Last ST Date: spring Exercises Regularly: Yes She downloaded exercises off Facebook. ALLERGIES Allergen Reactions Hydrocodone-Acetami* Mental Status Change Adhesive Tape (Sridevi* Rash Bupropion Mental Status Change hallucinations Latex, Natural Rubb* Rash Rosuvastatin Calcium Unknown Current Outpatient Medications Medication Sig venlafaxine ER (EFFEXOR XR) 150 mg 24 hr capsule Take 150 mg by mouth every morning. JANUVIA 50 mg tablet Take 50 mg by mouth every morning. carbidopa-levodopa (SINEMET 25-100) 25-100 mg per tablet Take 1.5 tablets by mouth three times a day. venlafaxine (EFFEXOR) 75 mg tablet estradiol (ESTRACE) 0.01 % (0.1 mg/gram) vaginal cream Use vaginally one time a week. acetaminophen (TYLENOL) 500 mg tablet Take 500 mg by mouth every 8 hours as needed. 01/18/2023: Pt takes 2 tabs daily per [facility] [place] [facility] list MEDICATION, NON-DATABASE 750 mg two times [...] LUTEIN ORAL) Take by mouth twice daily. No current facility-administered medications for this visit. Objective Vital Signs: BP 137/76 (BP Site: Left Arm, BP Position: Sitting, BP Cuff Size: Regular Adult) Pulse 74 Ht 167.6 cm (5' 6 ) Wt 112 kg (247 lb) SpO2 99% BMI 39.87 kg/m Orthostatic Vitals: None for this encounter No LMP recorded. Patient is postmenopausal. Body mass index is 39.87 kg/m . Movement Disorders Scales Performed: MDS-UPDRS Motor subscale condition of exam Medication Off/On/Naiive ON Time of UPDRS Time of Last Medication 1100 Last Medication [...] midway in the sequence. Arm Movements Left 3-Moderate. a) more than 5 interruptions during the movement or at least one longer arrest (freeze) in ongoing movement, b) moderate slowing, c) the amplitude decrements starting after the 1st supination-pronation sequence. Toe Taps Right 2-Mild. a) 3 to 5 interruptions during the tapping movements, b) mild slowing, c) the amplitude decrements midway in the task. Toe Taps Left 1-Slight. a) the regular [...] cm in maximal amplitude. Rest Tremor Constancy 4-Severe. Tremor at rest is present > 75% of the entire examination period. Assessment and Plan: Assessment Ms. Barker is a right-handed 83 year old year old female with Parkinson's disease since 2013. She does have some fluctuations with an increase in tremor when her medication wears off. However she does not want to change anything as overall she feels she is doing pretty good and also recognizes the role stress plays in her tremor. She does continue to have her depression and anxiety treated. Of concern is a fall she experienced yesterday. She hit her head and has been experiencing dizziness since then. I did order a CT scan of the brain and scheduled it for today but her son indicated that he is not able to stay for it and that he will either schedule it near their home or if they cannot get it done, he will take her to their local emergency department. The following are the current problems noted and addressed during this visit: Parkinson's disease without dyskinesia, with fluctuating manifestations (hcc) Depression with anxiety Injury of head, initial encounter (primary encounter diagnosis) Plan 10/25/2023 Visit: Parkinson's disease: Continue current medication schedule Restart exercising Please let me know if you change your mind about physical therapy Depression and anxiety: Continue seeing the therapist you have been seeing Continue your medication schedule Other: I have ordered a stat brain CT scan due to the fall and hitting your head, experiencing dizziness, and being on a blood thinner. Please remember our discussion and even if the CT is normal, sometimes brain bleeds can be delayed so if you have any of the changes we discussed, you need to be evaluated immediately Follow up with primary care provider for left leg swelling since this is not typically the side that swells Updated Movement Disorders Medication Schedule: Medications 7am 11am 3pm 7pm Bedtime Sinemet 25/100 1.5 1 1 1 Effexor 150mg 1 Effexor 75mg 1 Mirtazapine 7.5mg 1 Return at or around: 02/22/24 Level of service : 81598 ( 30-39 min). Time spent 39 min on the day of service, which included preparing to see the patient, [id number] patient care, completing clinical documentation, obtaining and/or reviewing separately obtained history, performing a medically appropriate examination, counseling and educating the patient/family/caregiver, and ordering medications, tests, or procedures. Gloria Perez APRN.ELDON documented in this encounter [facility] 10-25-2023 Note HNO ID: [id number] Author: CHRIS, GLORIA, PRESS ASSISTANT AND FEEDER.CAUL DRESSER Service: ? Author Type: Nurse Practitioner Type: Progress Notes Filed: 11/02/2023 21:17 Note Text: [facility] - FOLLOW UP EVALUATION Honey Rabago DO [address] [place] [address] Dear Honey Rabago DO: I had the pleasure of seeing Ms. Barker for follow-up today. As you know she is a 83 year old right-handed female with a history of Parkinson's disease since 2013. She is seen with her son. Subjective Previous Plan-06/23/2023 Visit: Parkinson's disease: Change the timing of the Sinemet to that noted below. Please let me know if you change your mind about physical therapy and if the professor of archaeology approves Depression and anxiety: Continue Venlafaxine (Effexor) [...] use your Cpap and therefore feel better Interval History: She has been more sad lately as one of the ladies she is close to at her facility left three weeks ago and she does not know where she is at. Her son said she has mentioned that she is feeling weak. She has not had physical therapy lately and is not exercising. Movement Disorders Medications Schedule - as of the start of the visit: Medications 7am 11am 3pm 7pm Bedtime Sinemet 25/100 1.5 1 1 1 Effexor 150mg 1 Effexor 75mg 1 Mirtazapine 7.5mg 1 Parkinson's Motor Complications Medication benefit onset: 5 minutes Medication duration: 3.5 hours Wearing off: yes (Comment: She will have [...] with doing hobbies and other activities: Yes (moderate) Difficulties turning in bed: Yes (slight) Difficulties getting out of bed, car or chair: Yes (moderate) Tremors/Gait/Balance Shaking or tremors: Yes (mild) Walking and balance problems: Yes (moderate) Number of falls in the Last Month: 1 She fell onto her knees yesterday and hit her head and has been dizzy since though it was worse yesterday. Her knee is also hurt. Gait freezing: Yes (slight) Autonomic/Pain Lightheadeness on standing: Yes (mild) Urinary problems: Yes (severe) Chronic Constipation problems: Yes (slight) Pain and other sensations: Yes (moderate) Speech/Swallowing Speech problems: Yes (slight) Drooling: Yes (moderate) Chewing and swallowing problems: Yes (slight) Sleep/Fatigue Sleep problems: Yes (moderate) This has been better lately. Daytime sleepiness: Yes (mild) Fatigue: Yes (slight) In addition, the following non-motor symptoms and palliative concerns were evaluated: Sleep/Fatigue: REM sleep behavior disorder: No She is not sure but is not tangled in her sheets, bed is not a mess, she has not fallen out of bed, etc. Restless Legs Syndrome: No Leg swelling: Intermittent Impaired sense of smell: Yes Cognition: Cognitive impairment: yes She and her son feel it is about the same. MoCA Cognitive assessment: 29 (02/03/2021) Hallucinations and delusions: no Apathy: She is interested in the facility and her son said she is more interested in keeping her room up than she had been. Impulse control disorder: No Not currently a [...] No Therapy and Exercise: Last PT Date: spring Last OT Date: ST Date: spring Exercises Regularly: Yes She downloaded exercises off [employer]. ALLERGIES Allergen Reactions Hydrocodone-Acetami* Mental Status Change Adhesive Tape (Sridevi* Rash Bupropion Mental Status Change hallucinations Latex, Natural Rubb* Rash Rosuvastatin Calcium Unknown Current Outpatient Medications Medication Sig venlafaxine ER (EFFEXOR XR) 150 mg 24 hr capsule Take 150 mg by mouth every morning. JANUVIA 50 mg tablet Take 50 mg by mouth every morning. carbidopa-levodopa (SINEMET 25-100) 25-100 mg per tablet Take 1.5 tablets by mouth three times a day. venlafaxine (EFFEXOR) 75 mg tablet estradiol (ESTRACE) 0.01 % (0 (more content not included)... [facility] 06-23-2023 Instructions Gloria Perez APRN.CAUL DRESSER - 06/23/2023 3:54 PM EDT It was a pleasure to see you today. We addressed the following diagnoses: Parkinson's disease without dyskinesia, with fluctuating manifestations (hcc) My recommendations are as follows: 06/23/2023 Visit: Parkinson's disease: Change the timing of the Sinemet to that noted below. Please let me know if you change your mind about physical therapy and if the professor of archaeology approves Depression and anxiety: Continue Venlafaxine (Effexor) [...] or you can send a message through [employer]. You can also now schedule and select appointments through [employer]. Gloria Perez APRN.CAUL DRESSER From the Parkinson's Foundation: https://www.parkinson.org What Can [...] make phlegm worse. documented in this encounter [facility] 06-23-2023 History of Present illness Narrative [facility] - FOLLOW UP EVALUATION Honey Rabago DO [address] [facility] [address] Dear Honey Rabago DO: I had the pleasure of seeing Ms. Barker for follow-up today. As you know she is a 82 year old right-handed female with a history of Parkinson's disease since 2013. She is seen with her son. Subjective Previous Plan-01/20/2023 Visit: Parkinson's disease: Continue current medication schedule but discuss with the consumer loan officer if you can take the Sinemet on [...] lot online or on TV, $15/month on lotnumberFirey tickets (in past also) Palliative Concerns: Caregiver burden: In assisted living so now less stress on son and daughter in law Spiritual concerns: No Advanced directives on file: No Palliative services: No Therapy and Exercise: Last PT Date: August 2022 Last OT Date: Last ST Date: August 2022 Exercises Regularly: Yes She downloaded exercises off [employer]. ALLERGIES Allergen Reactions Hydrocodone-Acetami* Mental Status Change [...] 01/18/2023: Pt takes 2 tabs daily per [facility] med list MEDICATION, NON-DATABASE 750 mg [...] mind about physical therapy and if the professor of archaeology approves Depression and anxiety: Continue Venlafaxine (Effexor) [...] Mirtazapine 7.5mg 1 Level of service : 44586 (40-54 min). Time spent 53 min on the day of service, which included preparing to see the patient, [id number] patient care, completing clinical documentation, obtaining and/or reviewing separately obtained history, performing a medically appropriate examination, and counseling and educating the patient/family/caregiver. Gloria Perez APRN.CAUL DRESSER documented in this encounter [facility] 06-23-2023 Note HNO ID: [id number] Author: GLORIA PEREZ APRN.CAUL DRESSER Service: ? Author Type: Nurse Practitioner Type: Progress Notes Filed: 06/23/2023 20:12 Note Text: [facility] - FOLLOW UP EVALUATION Honey Rabago DO [address] [place] [address] Dear Honey Rabago DO: I had the pleasure of seeing Ms. Barker for follow-up today. As you know she is a 82 year old right-handed female with a history of Parkinson's disease since 2013. She is seen with her son. Subjective Previous Plan-01/20/2023 Visit: Parkinson's disease: Continue current medication schedule but discuss with the consumer loan officer if you can take the Sinemet on [...] now less stre (more content not included)... [facility] 02-11-2023 Miscellaneous Notes Addended by: ANU HILLMAN on: 02/11/2023 02:59 PM Modules accepted: Orders Order pended to preferred pharmacy Last OV 01/20/23 Next OV 06/23/23 E- [id number] [place] [address] - [address] [phone] [id number] carbidopa-levodopa (SINEMET 25-100) 25-100 mg per tablet Patient son called in today in regards to medication and wanting to switch pharmacy, they were told the best way to do this would be to request a new prescription. They would like it sent to [facility] Thank you! documented in this encounter [facility] 01-20-2023 Instructions Gloria Perez APRN.ELDON - 01/20/2023 3:46 PM EST It was a pleasure to see you today. We addressed the following diagnoses: Parkinson's disease without dyskinesia, with fluctuating manifestations (primary encounter diagnosis) Depression with anxiety My recommendations are as follows: 01/20/2023 Visit: Parkinson's disease: Continue current medication schedule but discuss with the consumer loan officer if you can take the Sinemet on [...] or you can send a message through [employer]. You can also now schedule and select appointments through [employer]. Gloria Perez APRN.CAUL DRESSER documented in this encounter [facility] 01-20-2023 History of Present illness Narrative [facility] - FOLLOW UP EVALUATION Honey Rabago DO [address] [facility] [address] Dear Honey Rabago DO: I had the [...] lot online or on TV, $15/month on lotnumberFirey tickets (in past also) Palliative Concerns: Caregiver [...] 01/18/2023: Pt takes 2 tabs daily per [facility] [place] med list MEDICATION, NON-DATABASE 750 mg two [...] she is going to discuss with the consumer loan officer, see if she can take her Parkinson's [...] current medication schedule but discuss with the consumer loan officer if you can take the Sinemet on [...] Mirtazapine 7.5mg 1 Level of service : 62342 (40-54 min). Time spent 47 min on the day of service, which included preparing to see the patient, [id number] patient care, completing clinical documentation, obtaining and/or reviewing separately obtained history, performing a medically appropriate examination, counseling and educating the patient/family/caregiver, and ordering medications, tests, or procedures. Gloria Perez APRN.ELDON documented in this encounter [facility] 07-08-2022 Instructions Gloria Perez APRN.CNP - 07/08/2022 [...] or you can send a message through [employer]. You can also now schedule and select appointments through [employer]. Gloria Perez APRN.ELDON documented in this encounter [facility] 07-08-2022 History of Present illness Narrative [facility] - FOLLOW UP EVALUATION Honey Rabago DO, DO [address] [facility] [address] Dear Honey Rabago DO, DO: I had [...] She likes the staff. The director and housekeeping director have to chip into cook since the chef's assistant cook and this has been good from [...] lot online or on TV, $15/month on [employer] tickets (in past) Palliative Concerns: Caregiver burden: [...] or around: 01/07/23 Level of service : 04664 (40-54 min). Time spent 47 min on the day of service, which included preparing to see the patient, [id number] patient care, completing clinical documentation, obtaining and/or reviewing separately obtained history, performing a medically appropriate examination, counseling and educating the patient/family/caregiver, and ordering medications, tests, or procedures. Gloria Perez APRN.ELDON documented in this encounter [facility] 04-13-2022 Miscellaneous Notes Order pended [...] patient. Belen Tim documented in this encounter [facility] 02-15-2022 Miscellaneous Notes I tried callingGina, the social welfare clerk in her primary care provider's office. I left a message requesting a call back. AYO Chicas documented in this encounter [facility] 12-15-2021 Evaluation note Encounter Date [...] Please call patient's son Jose David at [phone] with results. Spoke to Jose David and discussed above. Spoke with HH RN Bety ([phone] ) and given above instructions. Patient may get home testing for INRs set-up, will inform clinic if home testing begins. Home Health Order: Draw PT/INR on 01-04-22 Seen by Justin Nicolas PharmD [employer] Other 09-20-2022 Evaluation note* Encounter Date Diagnosis [...] discharged on 11/25 from inpatient rehab at [facility] with above plan and therapeutic INRs. Follow up in 2 weeks. Please call patient's son Jose David at [phone] with results. Spoke to Jose David and discussed above. Spoke with RN Bety ([phone]) and given above instructions. Patient may get home testing for INRs set-up, will inform clinic if home testing begins. Home Health Order: Draw PT/INR on 12-14-21 Seen by Justin Nicolas PharmD [employer] Other 09-14-2022 Discharge summary Author Alcides Moya [facility] November 25, 2021 12:57pm Note Date/Time November 25, 2021 8:50am [facility] [address] [place] [address] Discharge Summary Signed Patient: Alton Barker MR#: [id number] : 1940 Acct:[id number] Age/Sex: 81 / F Adm Date: 2 Loc: Room: [address] [place] [address]: Alcides Moya MD Copies to: [...] Plan Discharge Plan Patient Disposition: Home Health [facility] Activity: Ambulate as Tolerated Diet: Regular Additional [...] needed, for comfort related to back pain. -[facility] to draw a PT/INR (dx:Z79.01) on Tuesday11/30/21, with results to [facility], who will continue to manage your Coumadin dosing, as they were prior to your hospitalization. -Coumadin dosing: Take 2mg every day EXCEPT Tuesday and . Take 1mg on Tuesday and . Your Home Health agency is [facility] ( ). They will usually [...] signed by Alcides Moya MD> 11/25/21 1257 [facility] Work Phone: 1(792) 724-500109-12-2022 Progress note Author Aclides Moya [facility] November 23, 2021 3:01pm Note Date/Time November 23, 2021 1:36pm [facility] [address] [place] [address] Physiatry(Rehab) Progress Note Signed Patient: Alton Barker MR#: [id number] : 1940 Acct:[id number] Age/Sex: 81 / F Adm Date: 2 Loc: Room: 6U1278-0 Type: ADM IN Attending Dr: Alcides Moya MD Copies to: ~ <Elham Mendoza APRN - Last Filed: 11/23/21 14:05> Date of Service: 11/23/2021 Subjective <Elham Mendoza APRN - Last Filed: 11/23/21 14:05> Subjective Narrative: Ms. Barker is a 81 year old female With history of Parkinson's disease, followed at the [facility], admitted to the rehabilitation unit with [...] it finally took effect, it was already state patrol officer. I reminded that she can take her [...] mg 11/11/21 14:29 Bisacodyl 10 Mg Supp.Rect MT 11/11/22 14:28 DAILY PRN Constipation Carbidopa/Levodopa 1.5 [...] 14:29 Docusate Enema 283 Mg/5 Ml Enema MT 11/11/22 14:28 DAILY PRN Constipation Lactulose 30 gm 11/11/21 14:29 Lactulose 20 Gm/30 Ml Udc PO 11/11/22 14:28 DAILY PRN Constipation Levothyroxine Sodium 75 mcg 11/12/21 06:30 11/23/21 06:45 Levothyroxine 75 Mcg Tablet PO 11/12/22 06:29 Not Given DAILY@0630 [facility] Lidocaine 1 patch 11/12/21 09:00 11/23/21 09:10 [...] ONCE PRN zz.Pharmacy Note Protocol Assessment/Plan <Elham Mendoza, PRESS ASSISTANT AND FEEDER - Last Filed: 11/23/21 14:05> Assessment/Plan (1) [...] health note review, nursing note review, consultant dietitian note review, discussion with nursing and case management, and more than 50% of my time was spent on counseling and coordination of care, time spent 18 minutes Patient was personally seen by me, Dr. Moya, on the day of encounter, reviewed the history and the relevant portions of the chart, including current orders, allied health and consultant dietitian notes, labs/imaging and performed day elements of exam and I formulated the plan of care and facilitated the medical decision making and confirmed the nurse practitioner note, as above Can continue abdominal binder as needed for comfort. Home on Tuesday Documented By: Elham Mendzoa APRN 11/23/21 1 333 Signed By: <Electronically signed by HEIDI Mendoza> 11/23/21 1406 <Electronically signed by Alcides Moya MD> 11/23/21 1501 [facility] Work Phone: 1(786) 751-668109-12-2022 Progress note Author Alcides Moya [facility] November 23, 2021 2:39pm Note Date/Time November 20, 2021 1:19pm [facility] [address] [place] [address] Physiatry(Rehab) Progress Note Signed Patient: Alton Barker MR#: [id number] : 1940 Acct:[id number] Age/Sex: 81 / F Adm Date: 2 Loc: Room: 8J0509-4 Type: ADM IN Attending Dr: Alcides Moya MD Copies to: ~ <Elham Mendoza APRN - Last Filed: 11/20/21 13:21> Date of Service: 11/20/2021 Subjective <Elham Mendoza APRN - Last Filed: 11/20/21 13:21> Subjective Narrative: Ms. Barker is a 81 year old female With history of Parkinson's disease, followed at the [facility], admitted to the rehabilitation unit with [...] mg 11/11/21 14:29 Bisacodyl 10 Mg Supp.Rect MT 11/11/22 14:28 DAILY PRN Constipation Carbidopa/Levodopa 1.5 [...] 14:29 Docusate Enema 283 Mg/5 Ml Enema MT 11/11/22 14:28 DAILY PRN Constipation Lactulose 30 [...] health note review, nursing note review, consultant dietitian note review, discussion with nursing and case management, and more than 50% of my time was spent on counseling and coordination of care, time spent 16 minutes Patient was personally seen by me, Dr. Moya, on the day of encounter, reviewed the history and the relevant portions of the chart, including current orders, allied health and consultant dietitian notes, labs/imaging and performed day elements of exam and I formulated the plan of care and facilitated the medical decision making and confirmed the nurse practitioner note, as above Documented By: Elham Mendoza APRN 11/20/21 1 310 Signed By: <Electronically signed by HEIDI Mendoza> 11/20/21 1321 <Electronically signed by Alcides Moya MD> 11/23/21 8826 [facility] Work Phone: 1(218) 758-269709-08-2022 Progress note Author Rosa Maria Odell [facility] November 19, 2021 5:37pm Note Date/Time November 19, 2021 4:57pm [facility] [address] [place] [address] Hospitalist Progress Note Signed Patient: Alton Barker MR#: [id number] : 1940 Acct:[id number] Age/Sex: 81 / F Adm Date: 2 Loc: 5T Room: 8I1686-0 Type: ADM IN Attending Dr: Alcides Moya [...] mg 11/11/21 14:29 Bisacodyl 10 Mg Supp.Rect MT 11/11/22 14:28 DAILY PRN Constipation Carbidopa/Levodopa 1.5 [...] 14:29 Docusate Enema 283 Mg/5 Ml Enema MT 11/11/22 14:28 DAILY PRN Constipation Lactulose 30 [...] 11/19/21 1653 Signed By: <Electronically signed by EHIDI Jaimes> 11/19/21 1728 <Electronically signed by Rosa Maria Odell MD> 11/19/21 1737 [facility] Work Phone: 1(587) 675-503009-07-2022 Progress note Author Alcides Moya [facility] November 18, 2021 12:40pm Note Date/Time November 17, 2021 10:56am [facility] [address] [place] [address] Physiatry(Rehab) Progress Note Signed Patient: Alton Barker MR#: [id number] : 1940 Acct:[id number] Age/Sex: 81 / F Adm Date: 2 Loc: Room: [address] [place] [address] Type: ADM IN Attending Dr: Alcides Moya [...] mg 11/11/21 14:29 Bisacodyl 10 Mg Supp.Rect MT 11/11/22 14:28 DAILY PRN Constipation Carbidopa/Levodopa 1.5 [...] 14:29 Docusate Enema 283 Mg/5 Ml Enema MT 11/11/22 14:28 DAILY PRN Constipation Lactulose 30 [...] health note review, nursing note review, consultant dietitian note review, discussion with nursing and case management, and more than 50% of my time was spent on counseling and coordination of care, time spent 23 minutes Patient was personally seen by me, Dr. Moya, on the day of encounter, reviewed the history and the relevant portions of the chart, including current orders, allied health and consultant dietitian notes, labs/imaging and performed day elements of [...] for tomorrow. Documented By: Fabian Lam DO, KARLA 2 1049 Signed By: <Electronically signed by DO KARLA Lam> 11/17/21 1149 <Electronically signed by Alcides Moya MD> 11/18/21 1240 [facility] Work Phone: 1(167) 962-427409-03-2022 Progress note Author Alcides Moya [facility] November 14, 2021 8:45am Note Date/Time November 13, 2021 3:25pm [facility] [address] [place] [address] Physiatry(Rehab) Progress Note Signed Patient: Alton Barker MR#: [id number] : 1940 Acct:[id number] Age/Sex: 81 / F Adm Date: 2 Loc: Room: [address] [place] [address] Type: ADM IN Attending Dr: Alcides Moya MD Copies to: ~ Date of Service: 11/13/2021 Subjective Subjective Narrative: Ms. Barker is a 81 year old female With history of Parkinson's disease, followed at the [facility], admitted to the rehabilitation unit with [...] mg 11/11/21 14:29 Bisacodyl 10 Mg Supp.Rect MT 11/11/22 14:28 DAILY PRN Constipation Carbidopa/Levodopa 1.5 [...] 14:29 Docusate Enema 283 Mg/5 Ml Enema MT 11/11/22 14:28 DAILY PRN Constipation Lactulose 30 [...] Acute (10) Chronic anticoagulation: Code(s): Z79.01 - superintendent container terminal (current) use of anticoagulants Status: Acute (11) Urinary tract infection: Code(s): N39.0 - Urinary tract infection, site not specified Status: Acute (12) Back pain: Code(s): M54.9 - Dorsalgia, unspecified Status: Acute Plan 81-year-old female with history of Parkinson's disease, follows at the [facility], admitted to the rehabilitation unit with [...] and self-care. Discharge planning:Insurance denial overturned via [id number]. 2 weeks approved. Plan for discharge home November 25 Plan: I completed a substantive portion of this encounter, the medical decision makingportion of this note in its entirety, including Allied health note review, nursing note review, consultant dietitian note review, discussion with nursing and case management, and more than 50% of my time was spent on counseling and coordination of care, time spent 26minutes Patient was personally seen by me, Dr. Moya, on the day of encounter, reviewed the history and the relevant portions of the chart, including current orders, allied health and consultant dietitian notes, labs/imaging and performed day elements of exam and I formulated the plan of care and facilitated the medical decision making and confirmed the nurse practitioner note, as above Documented By: Alcides Moya MD 11/13/21 1525 Signed By: <Electronically signed by Alcides Moya MD> 11/14/21 0845 [facility] Work Phone: 1(830) 953-447209-01-2022 Consult note Author Justice De Oliveira [facility] November 12, 2021 5:09pm Note Date/Time November 12, 2021 3:21pm [facility] [address] [place] [address] Hospitalist Consult Note Signed Patient: Alton Barker MR#: [id number] : 1940 Acct:[id number] Age/Sex: 81 / F Adm Date: 2 Loc: Room: 8P4182-7 Type: ADM IN Attending Dr: Alcides Moya [...] incontinence. Patient with underlying Parkinson's follows with [facility] neurology and movement disorder clinicians there. [...] negative unless noted below or in HPI [facility] Attestation Statement: The following information was validated [...] mg-vit E 90 mg-zinc 40 mg-copper 1 zd-yzrqdi-nzknpz capsule (PreserVision AREDS-2) 1 tab PO BID [...] mg 11/11/21 14:29 Bisacodyl 10 Mg Supp.Rect MT 11/11/22 14:28 DAILY PRN Constipation Carbidopa/Levodopa 1.5 [...] 14:29 Docusate Enema 283 Mg/5 Ml Enema MT 11/11/22 14:28 DAILY PRN Constipation Lactulose 30 gm 11/11/21 14:29 Lactulose 20 Gm/30 Ml Udc PO 11/11/22 14:28 DAILY PRN Constipation Levothyroxine Sodium 75 mcg 11/12/21 06:30 11/12/21 06:25 Levothyroxine 75 Mcg Tablet PO 11/12/22 06:29 Not Given DAILY@0630 [facility] Lidocaine 1 patch 11/12/21 09:00 11/12/21 08:45 [...] % (Auto) 45.9, Lymph % (Auto) 39.7, Franklin % (Auto) 10.1, Eos % (Auto) 3.8, Baso % (Auto) 0.5, Neut # (Auto) 2.3, Lymph # (Auto) 2.0, Franklin # (Auto) 0.5, Eos # (Auto) 0.2, [...] to manage warfarin 6. Hypothyroid?levothyroxine Documented By: IWLFRID Samuels 2 1520 Signed By: <Electronically signed by WILFRID Suh> 11/12/21 1543 <Electronically signed by Justice De Oliveira DO> 11/12/21 4577 [facility] Work Phone: 1(199) 247-750208-31-2022 History and physical note Author Alcides Moya [facility] November 11, 2021 6:55pm Note Date/Time November 11, 2021 1: 26pm [facility] [address] [place] [address] Physiatry (Rehab) H&P Signed Patient: Alton Barker MR#: [id number] : 1940 Acct:[id number] Age/Sex: 81 / F Adm Date: 2 Loc: Room: [address] [place] [address] Type: ADM IN Attending Dr: Alcides Moya MD Copies to: MD Honey Pate DO~ Date of Service: 11/11/2021 HPI The patient was seen and examined on: 11/11/21 Etiologic Diagnosis/Impairment Group: 08.9 History of Present Illness: Ms. Barker is a 81 year old female With history of Parkinson's disease, followed at the [facility], admitted to the rehabilitation unit with [...] Lives at home with her son and miauvqzr-aq-lzz. Chronic conditions are otherwise stable with current [...] mg-vit E 90 mg-zinc 40 mg-copper 1 av-uufvpo-fibwfo capsule (PreserVision AREDS-2) 1 tab PO BID [...] 14 days Expected Discharge Destination: Home Rehabilitation [facility]: 10.20 Primary Diagnosis: L1 compression fracture h/o [...] 24 hour daily monitoring and intervention from Director [employer] as well as other consulting physicians including internal medicine as well as 24 hour daily loader operator/ground leader nursing - for medical safe / optimal [...] Acute (10) Chronic anticoagulation: Code(s): Z79.01 - superintendent container terminal (current) use of anticoagulants Status: Acute (11) Urinary tract infection: Code(s): N39.0 - Urinary tract infection, site not specified Status: Acute (12) Back pain: Code(s): M54.9 - Dorsalgia, unspecified Status: Acute Plan 81-year-old female with history of Parkinson's disease, follows at the [facility], admitted to the rehabilitation unit with [...] and self-care. Discharge planning:Insurance denial overturned via [id number]. Plan for discharge home in 1 to 2 weeks. Plan: I completed a substantive portion of this encounter, the medical decision making portion of this note in its entirety, including Allied health note review, nursing note review, consultant dietitian note review, discussion with nursing and case management, and more than 50% of my time was spent on counseling and coordination of care, time spent 65 minutes Patient was personally seen by me, Dr. Moya, on the day of encounter, reviewed the history and the relevant portions of the chart, including current orders, allied health and consultant dietitian notes, labs/imaging and performed day elements of exam and I formulated the plan of care and facilitated the medical decision making and confirmed the nurse practitioner note, as above Documented By: Alcides Moya MD 11/11/211853 Signed By: <Electronically signed by Alcides Moya MD> 11/11/21 [facility] Work Phone: 1(215) 864-255508-25-2022 Miscellaneous Notes* Telephone Encounter - Gloria Perez [...] to in-health rehab. Currently she is at [facility] in [place] [facility] [address] Bed. 2. * Telephone Encounter - Lyly Pedersen - 11/05/2021 1:04 PM EDT ----- Message from Gloria Perez APRN.CAUL DRESSER sent at 11/03/2021 8:01 AM EDT ----- [...] know. Thank you, Gloria documented in this encounterBarney [facility]08-24-2022 History and physical note Author Enrrique Mota [facility] November 04, 2021 8:55pm Note Date/Time November 04, 2021 6: 26pm [facility] [address] [place] [address] Hospitalist H&P Signed Patient: Alton Barker MR#: [id number] : 1940 Acct:[id number] Age/Sex: 81 / F Adm Date: 2 Loc: Room: [address] [place] [address] Type: ADM IN Attending Dr: Enrrique Mota [...] mg-vit E 90 mg-zinc 40 mg-copper 1 fw-fqyarh-chxizf capsule (PreserVision AREDS-2) 1 tab PO BID [...] % (Auto) 20.3 % (.) 11/04/21 16:40 Franklin % (Auto) 9.7 % (.) 11/04/21 16:40 Eos % (Auto) 1.7 % (.) 11/04/21 16:40 Baso % (Auto) 0.6 % (.) 11/04/21 16:40 Neut # (Auto) 5.3 x10E3/uL (1.8-7.7) 11/04/21 16:40 Lymph # (Auto) 1.6 x10E3/uL (1.00-4.8) 11/04/21 16:40 Franklin # (Auto) 0.8 x10E3/uL (0.0-0.8) 11/04/21 16:40 [...] 11/04/21 16:40 Documented By: Enrrique Mota MD 11/04/21 0202 Signed By: <Electronically signed by Enrrique Mota MD> 11/04/212054 [facility] Work Phone: 1([phone]) 217-781508-11-2022 Evaluation note* Encounter Date Diagnosis Assessment Notes [...] 2 weeks. Seen by Justin Nicolas PharmD [employer] Other 07-21-2022 Instructions* Patient Instructions* Gloria Perez [...] or you can send a message through [employer]. You can also now schedule and select appointments through [employer]. Gloria Perez APRN.ELDON documented in this encounterBarney [facility]07-21-2022 History of Present illness Narrative* Gloria Perez APRN.CNP - 10/01/2021 12:13 PM EDT [facility] - FOLLOW UP EVALUATION Honey Rabago, DO, DO [address] [place] [address] [facility] [address] I had the pleasure of seeing Ms. [...] loss is noticeable but LTM is good. [place] Cognitive Assessment (MoCA): 29 (02/03/2021 10:50 AM) [...] is now living with her son and pbmtzhlr-pz-bez. She has not been taking her medication [...] 1.5 1.5 Effexor Level of service : 78975 (40-54 min). Time spent 49 (12:14pm-1:03pm) min on the day of service, which included preparing to see the patient, vkcc-ih-tkbb patient care, completing clinical documentation, obtaining and/or reviewing separately obtained history, performing a medically appropriate examination, counseling and educating the patient/family/caregiver and ordering medications, tests, or procedures. Gloria Perez APRN.ELDON documented in this encounterBarney Children'S Medical Center07-19-2022 Evaluation note* Encounter Date Diagnosis [...] 3 weeks. Seen by Juliana Ozuna RN [employer] Other 06-28-2022 NoteHISTORY: Bone density screening. COMPARISON: [...] and signed by Delgado Moya on 09/08/[address] [place], [place] 7935006-15-2022 Evaluation note* Encounter Date Diagnosis Assessment Notes [...] significant other. Seen by Juliana Ozuna RN [employer] Other 05-25-2022 Evaluation note* Encounter Date Diagnosis [...] son since of significant other. Seen by Ynei Shaw LPN July, Other - INSTRUCTIONS: Please take as instructed above. Notify [facility]tico[facility] [phone] option 5 for the following: -Call immediately [...] person tells you to adjust your warfarin. [employer] Other 05-09-2022 Evaluation note* Encounter Date Diagnosis [...] significant other. Seen by Justin Nicolas PharmD [facility] [employer] Other 03-30-2022 Evaluation note* Encounter Date Diagnosis [...] family. Calendar provided. Seen by Anu Alva [facility]/Anuradha Case CHICKEN TENDER [facility] [employer] Other 03-15-2022 Evaluation note* Encounter Date Diagnosis [...] she voiced understanding. Seen by Anu Alva [facility] [employer] Other 01-12-2022 Evaluation note* Encounter Date Diagnosis [...] 3 weeks. Seen by Justin Nicolas PharmD [employer] Other 12-15-2021 Evaluation note* Encounter Date Diagnosis [...] 4 weeks. Seen by Juliana Ozuna RN [employer] Other 11-17-2021 Evaluation note* Encounter Date Diagnosis [...] 4 weeks. Seen by Juliana Ozuna RN [employer] Other 09-29-2021 Evaluation note* Encounter Date Diagnosis [...] 4 weeks. Seen by Justin Nicolas PharmD [employer] Other Consult note Author Jairo Benson [facility] November 05, 2021 3:10pm Note Date/Time November 05, 2021 3: 10pm [facility] [address] [place] [address] Psychiatry Consult Note Signed Patient: Alton Barker MR#: [id number] : 1940 Acct:[id number] Age/Sex: 81 / F Adm Date: 2 Loc: Room: [address] [place] [address] Type : ADM INOo Attending Dr: Enrrique Mota MD Copies to: MD Enrrique Ny MD Robert J Vaschak, DO~ HPI Consult Date: 11/05/21 Requesting Physician: Enrirque Mota MD Primary Care Provider: Honey Rabago [...] mg-vit E 90 mg-zinc 40 mg-copper 1 ua-qdengt-xttvzi capsule (PreserVision AREDS-2) 1 tab PO BID [...] Cloudy A Urine pH 5.5 Ur Specific [place] 1.029 Urine Protein 30 H Urine Glucose [...] <Electronically signed by Jairo Benson MD> 11/05/21 5407 [facility] Work Phone: Consult note Author Oswaldo Almonte [facility] November 06, 2021 11:33am Note Date/Time November 06, 2021 11 :33am [facility] [address] [place] [address] Neurosurgery Consult Note Signed Patient: Alton Barker MR#: [id number] : 1940 Acct:[id number] Age/Sex: 81 / F Adm Date: 2 Loc: Room: [address] [place] [address] Type: ADM INOo Attending Dr: Enrrique Mota [...] mg-vit E 90 mg-zinc 40 mg-copper 1 th-ofbedk-fdpfsl capsule (PreserVision AREDS-2) 1 tab PO BID [...] midline hips normal range of motion without Alton's sign Skin: reasonable turgor and texture no [...] Cloudy A, Urine pH 5.5, Ur Specific [place] 1.029, Urine Protein 30 H, Urine Glucose [...] % (Auto) 67.7, Lymph % (Auto) 20.3, Franklin % (Auto) 9.7, Eos % (Auto) 1.7, Baso % (Auto) 0.6, Neut # (Auto) 5.3, Lymph # (Auto) 1.6, Franklin # (Auto) 0.8, Eos # (Auto) 0.1, [...] signed by MD Oswaldo Almonte> 11/06/21 1133 [facility] Work Phone: Discharge summary Author Gaye Claire [facility] November 11, 2021 5:21pm Note Date/Time November 10, 2021 11 :33am [facility] [address] [place] [address] Discharge Summary Signed Patient: Alton Barker MR#: [id number] : 1940 Acct:[id number] Age/Sex: 81 / F Adm Date: 2 Loc: Room: [address] [place] [address]: Gaye Claire MD Copies to: Tonya Suh, ANP- MD Honey Collado,DO~ Providers Date of Admission: [...] movement disorderspecialist Gloria Lal nurse practitioner at [facility] routinely. She was continued on her [...] Discharge Plan Discharge Plan Patient Disposition: Rehab [facility] Activity: No Activity Restriction Diet: Regular Additional [...] signed by Gaye Claire MD> 11/11/21 1721 [facility] Work Phone: evaluation noteNo assessment information available [facility] noteNo InformationNort payasUgym Other Evaluation note* Diagnosis Recurrent episodes of unresponsiveness- Primary Parkinson's disease (HCC) Paralysis agitans Depression with anxiety Dysthymic disorder Fatigue, unspecified type Excessive daytime sleepiness documented in this encounter [facility]* Diagnosis Onset Date Resolution [...] cute Parkinsons disease acute [facility]: [facility] note* Diagnosis Onset Date [...] Parkinsons disease acute Urinary tract infection acut [facility] Work Phone: Evaluation note* Diagnosis Parkinson's disease (HCC) Paralysis agitans [facility] Diagnosis Parkinson's disease (HCC)- Primary Paralysis agitans Depression with anxiety Dysthymic disorder [facility] Diagnosis Parkinson's disease without dyskinesia, with fluctuating manifestations- Primary Depression with anxiety Dysthymic disorder [facility] Diagnosis Parkinson's disease Paralysis agitans [facility] Diagnosis Depression with anxiety- Primary Dysthymic disorder Parkinson's disease without dyskinesia, with fluctuating manifestations (HCC) Sialorrhea Disturbance of salivary secretion [facility]* Diagnosis Injury of head, initial encounter- Primary Parkinson's disease without dyskinesia, with fluctuating manifestations (HCC) Depression with anxiety Dysthymic disorder [facility] Diagnosis Onychomycosis- Primary Dermatophytosis of nail Pain in both feet Type II diabetes mellitus with neurological manifestations (CMS/HCC) Type II or unspecified type diabetes mellitus with neurological manifestations, not stated as uncontrolled Neuropathy Mononeuritis of unspecified site documented in this encounter [facility]* Diagnosis Morbid obesity (CMS/HCC)- Primary Morbid obesity Type 2 diabetes mellitus with other specified complication, without long-term current use of insulin (CMS/HCC) Parkinson's disease without dyskinesia or fluctuating manifestations (CMS/HCC) Frequent falls Acquired hypothyroidism (CMS/HCC) Unspecified hypothyroidism Type 2 diabetes mellitus with hyperglycemia (CMS/HCC) Immunodeficiency due to conditions classified elsewhere (CMS/HCC) documented in this encounter [facility]* Diagnosis NO SHOW- Primary [facility]* Diagnosis Parkinson's disease without dyskinesia or fluctuating manifestations (CMS/HCC)- Primary Type 2 diabetes mellitus with other specified complication, unspecified whether skilled nursing insulin use (CMS/HCC) GERMANIA (obstructive sleep apnea) Obstructive sleep apnea (adult) (pediatric) 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 Vaginal yeast infection Candidiasis of vulva and vagina Vitamin D deficiency Vitamin B12 deficiency Other B-complex deficiencies Need for vaccination with 20-polyvalent pneumococcal conjugate vaccine documented in this encounter [facility]* Diagnosis Vaginal yeast infection Candidiasis of vulva and vagina documented in this encounter [facility] note* Diagnosis Onychomycosis- Primary Dermatophytosis of nail Pain in both feet Type II diabetes mellitus with neurological manifestations (CMS/HCC) Type II or unspecified type diabetes mellitus with neurological manifestations, not stated as uncontrolled Neuropathy Mononeuritis of unspecified site Hammer toes of both feet documented [facility] encounter [facility]* Diagnosis Vaginal yeast infection- Primary Candidiasis of vulva and vagina Atrophic vaginitis Postmenopausal atrophic vaginitis Diabetic peripheral neuropathy associated with type 2 diabetes mellitus (CMS/HCC) documented in [facility] encounter [facility]* Diagnosis GERMANIA (obstructive sleep apnea)- Primary Obstructive sleep apnea (adult) (pediatric) Inadequate sleep hygiene Other specific disorder of sleep of nonorganic origin Hypersomnia Hypersomnia, unspecified Snoring Other dyspnea and respiratory abnormality Anxiety Anxiety state, unspecified Depression, unspecified depression type (CMS/HCC) Memory loss documented in this encounter [facility]* Diagnosis Depression with anxiety- Primary Dysthymic disorder Parkinson's disease without dyskinesia, with fluctuating manifestations ([facility]) documented in this encounter [facility] general Narrative - Reported* Type Description Date Medical History diabetes mellitus Medical History coronary artery disease Medical History Hypothyroidism Medical History Esophageal reflux Medical History depression Medical History essential tremor Surgical History tonsillectomy Surgical History cholecystectomy Surgical History appendectomy Surgical History hemorrhoidectomy Surgical History colonoscopy Surgical History heart catheterization Hospitalization History see above [facility] Other History general [facility] - [facility] Other Progress note Author Enrrique Mota [facility] November 06, 2021 7:31am Note Date/Time November 05, 2021 3: 01pm [facility] [address] [place] [address] Hospitalist Progress Note Signed Patient: Alton Barker MR#: [id number] : 1940 Acct:[id number] Age/Sex: 81 / F Adm Date: 2 Loc: Room: [address] [place] [address] Type: ADM INOo Attending Dr: Enrrique Mota MD Copies to: ~ Date of Service: 11/05/2021 Subjective Subjective Narrative: Patient seen and examined, sitting up in chair at time of exam. She is pleasant, mildly confused. She is oriented to self, knows she is at [facility]. Initially states year is 1920, then [...] pain Senna/Docusate Sodium 2 tab 11/04/21 21:00 08/25/22 09:15 Sennosides/Docusate 8.6-50mg 1 Tab Tablet PO [...] where she lives with her son and kbhytsfh-qj-swx Impaired mobility and ADLs Parkinson's disease ? Patient follows with neurology, Dr. Lal, and movement disorder specialist,Gloria Lal, ELDON, at [facility] ? Continue Sinemet ? PT/OT eval's [...] signed by Enrrique Mota MD> 11/06/21 0731 [facility] Work Phone: Progress note Author Enrrique Mota [facility] November 07, 2021 4:52pm Note Date/Time November 06, 2021 11 :01am [facility] [address] [place] [address] Hospitalist Progress Note Signed Patient: Alton Barker MR#: [id number] : 1940 Acct:[id number] Age/Sex: 81 / F Adm Date: 2 Loc: Room: [address] [place] [address] Type: ADM INOo Attending Dr: Enrrique Mota MD Copies to: ~ Date of Service: 11/06/2021 Subjective Subjective Narrative: Patient is seen and examined. She is sitting up in bed at time of exam. When asked how she is feeling, she states not well, I am confused . She has howeveroriented to self, knows she is at [facility], and was able to tell me events surrounding her admission. She showed me a paper with custodial facilities listed on it, and indicated that [...] where she lives with her son and ksapmzob-nl-exp Impaired mobility and ADLs Parkinson's disease ? Patient follows with neurology, Dr. Lal, and movement disorder specialist,Gloria Lal, ELDON, at [facility] ? Continue Sinemet ? PT/OT recommending [...] signed by Enrrique Mota MD> 11/07/21 1652 [facility] Work Phone: Progress note Author Enrrique Mota [facility] November 07, 2021 4:47pm Note Date/Time November 07, 2021 11 :18am [facility] [address] [place] [address] Hospitalist Progress Note Signed Patient: Alton Barker MR#: [id number] : 1940 Acct:[id number] Age/Sex: 81 / F Adm Date: 2 Loc: Room: [address] [place] [address] Type: ADM INOo Attending Dr: Enrrique Mota [...] where she lives with her son and vqgmigcg-zy-jvs Impaired mobility and ADLs Parkinson's disease ? Patient follows with neurology, Dr. Lal, and movement disorder specialist,Gloria Lal, CAUL DRESSER, at [facility] ? Continue Sinemet ? PT/OT recommending [...] <Electronically signed by Enrrique Mota MD> 11/07/21 2769 [facility] Work Phone: Progress note Author Enrrique Mota [facility] November 08, 2021 5:13pm Note Date/Time November 08, 2021 10 :47am [facility] [address] [place] [address] Hospitalist Progress Note Signed Patient: Alton Barker MR#: [id number] : 1940 Acct:[id number] Age/Sex: 81 / F Adm Date: 2 Loc: 3T Room: [address] [place] [address] Type: ADM INOo Attending Dr: Enrrique Mota [...] where she lives with her son and tffdofgq-sz-ogf Impaired mobility and ADLs Parkinson's disease ? Patient follows with neurology, Dr. Lal, and movement disorder specialist,Gloria Lal, ELDON, at [facility] ? Continue Sinemet ? PT/OT recommending [...] Work Phone: Progress note Author Gaye Claire [facility] November 10, 2021 4:37pm Note Date/Time November 09, 2021 1: 11pm [facility] [address] [place] [address] Hospitalist Progress Note Signed Patient: Alton Barker MR#: [id number] : 1940 Acct:[id number] Age/Sex: 81 / F Adm Date: 2 Loc: Room: [address] [place] [address] Type: ADM INOo Attending Dr: Gaye Claire [...] Tablet PO 11/04/22 20:59 75 mg BID KALYIN Administration Mirtazapine 7.5 mg 11/05/21 22:00 11/08/21 [...] Lal, and movement disorder specialist, [facility] ?Continue Sinemet UTI Ecoli ?ceftriaxone [...] Work Phone: Progress note Author Gaye Claire [facility] November 11, 2021 5:21pm Note Date/Time November 10, 2021 5: 36pm [facility] [address] [place] [address] Hospitalist Progress Note Signed Patient: Alton Barker MR#: [id number] : 1940 Acct:[id number] Age/Sex: 81 / F Adm Date: 2 Loc: Room: 5O6897-8 Type: DIS INOo Attending Dr: Gaye Claire [...] Lal, and movement disorder specialist, Gloria Lal [facility] ?Continue Sinemet UTI Ecoli ?ceftriaxone [...] 2 1736 Signed By: <Electronically signed by ANP-CHEN Suh> 11/10/21 1757 <Electronically signed by Gaye Claire MD> 11/11/21 1721 [facility] Work Phone: Reason for referral (narrative)* Outpatient Procedure (Routine) - Pending Review Specialty Diagnoses / Procedures Referred By Contact Referred To Contact [facility] Diagnoses Recurrent episodes of unresponsiveness Procedures EPIL EEG ROUTINE ELECTROENCEPHALOGRAM REC COMA/SLEEP ONLY Gloria Perez APRN.CAUL DRESSER [address] [place] [address] [facility] [place] [address] [place] [address] Referral ID Status Reason Start Date Expiration Date Visits Requested Visits Authorized [id number] Pending Review Auto-Generat ed Referral 10/04/2021 10/04/2022 1 1 [facility] Summary Purpose Family History No Family History Records Found Relationship Condition Age at Onset Recorded Date/T denis Not Specified No pertinent family history Unknown Advance Directives No Advanced Directives Records Found Advance Directive Response Recorded Date/ Time Advance Directives No May 23 10:53am Advance Directive Response Recorded Date/ Time Advance Directives No May 23 9:53am Date Activated Date Inactivated Comments 07/29/2023 12:19 PM Date Activated Date Inactivated Comments 07/29/2023 12:19 PM Chief Complaint and Reason for Visit Chief [...] t Referred To Contact Diagnoses Parkinson's disease without dyskinesia, with fluctuating manifestations (HCC) Procedures PROVIDER ORDERED FOLLOW UP OFFICE/OUTPATIENT NEW HIGH MDM 60 MINUTES Gloria Perez, HEIDI.ELDON [address] [place] [address] Referral ID Status Reason Start Date Expiration Date Visits Requested Visits Authorized [id number] Authorized PCP Requested Referral 4 10/24/2024 1 1 Specialty Diagnoses / Procedures Referred By Contac t Referred To Contact CT IMAGING Diagnoses Injury of head, initial encounter Procedures CT BRAIN WO IVCON CT HEAD/BRAIN W/O CONTRAST MATERIAL Gloria Perez, HEIDI.CAUL DRESSER [address] [place] [id number] [facility] [place] [address] Referral ID Status Reason Start Date Expiration Date Visits Requested Visits Authorized [id number] Pending Review Auto-Generat ed Referral 10/25/2023 11/23/2024 1 1 Specialty Diagnoses / Procedures Referred By Contbertha t Referred To Contact Diagnoses Parkinson's disease (HCC) Procedures PROVIDER ORDERED FOLLOW UP OFFICE/OUTPATIENT NEW HIGH MDM 60-74 MINUTES Gloria Perez, PRESS ASSISTANT AND FEEDER.CAUL DRESSER [address] [place] [address] Referral ID Status Reason Start Date Expiration Date Visits Requested Visits Authorized [id number] Pending Review PCP Requested Referral 3 07/08/2023 1 1 Additional Source Comments INFORMATION SOURCE (unrecogn ized section and content) DATE CREATED AUTHOR 11/02/2017 [employer] DATE CREATED AUTHOR AUTHOR'S ORGANIZ ATION 09/09/2021 [facility] DATE CREATED AUTHOR AUTHOR'S ORGANIZ ATION 07/23/2022 [facility] DATE CREATED AUTHOR AUTHOR'S ORGANIZ ATION 02/24/2024 [facility] EPIC DATE CREATED AUTHOR AUTHOR'S ORGANIZ ATION 03/01/2024 [facility] DATE CREATED AUTHOR AUTHOR'S ORGANIZ ATION 03/12/2024 [facility] DATE CREATED AUTHOR AUTHOR'S ORGANIZ ATION 03/15/2024 [facility] Goals (unrecognized section and content) Goals may [...] disease Procedures PROVIDER ORDERED FOLLOW UP OFFICE/OUTPATIENT NEW HIGH MDM 60-74 MINUTES Gloria Perez, PRESS ASSISTANT AND FEEDER.CAUL DRESSER [address] [place] [id number] Referral ID Status Reason Start Date Expiration Date Visits Requested Visits Authorized [id number] Pending Review PCP Requested Referral 3 07/08/2023 1 1 Reason Comments Medication Problem Reason Comments Parkinson's Disease Follow Up Reason Comments Parkinson's Disease Follow Up Reason Comments 3 Month Follow Up Reason Onset Date Comments OT Initial Eval 02/22/2024 Reason Onset Date Comments No Show 02/24/2024 No show Reason Comments 3 month follow up Reason Onset Date Comments Med Refill 11/16/2023 Reason Comments String hanging out of vagina Reason Comments Sleep Apnea Reason Onset Date Comments re: OT Eval set-up 03/05/2024 Specialty Diagnoses / Procedures Referred By Contac t Referred To Contact Diagnoses Parkinson's disease without dyskinesia, with fluctuating manifestations (HCC) Procedures PROVIDER ORDERED FOLLOW UP OFFICE/OUTPATIENT NEW HIGH MDM 60 MINUTES Gloria Perez, PRESS ASSISTANT AND FEEDER.CAUL DRESSER [address] [place] [address] Referral ID Status Reason Start Date Expiration Date V isits Requested Visits Authorized [id number] Closed PCP Requested Referral 02/22/2024 10/24/2024 1 1 Source Comments (unrecognize d section and content) In the event this informatio n is protected by the Federal Confidentiality of Alcohol and Drug Abuse Patient Records regulations: The Federal rules restrict any use of the information to criminally investigate or prosecute any alcohol or drug abuse patient.[facility] the event this information is protected by the Federal Confidentiality of Alcohol and Drug Abuse Patient Records regulations: The Federal rules restrict any use of the information to criminally investigate or prosecute any alcohol or drug abuse patient.[facility] the event this information is protected by the Federal Confidentiality of Alcohol and Drug Abuse Patient Records regulations: The Federal rules restrict any use of the information to criminally investigate or prosecute any alcohol or drug abuse patient.[facility] the event this information is protected by the Federal Confidentiality of Alcohol and Drug Abuse Patient Records regulations: The Federal rules restrict any use of the information to criminally investigate or prosecute any alcohol or drug abuse patient.[facility] the event this information is protected by the Federal Confidentiality of Alcohol and Drug Abuse Patient Records regulations: The Federal rules restrict any use of the information to criminally investigate or prosecute any alcohol or drug abuse patient.[facility] the event this information is protected by the Federal Confidentiality of Alcohol and Drug Abuse Patient Records regulations: The Federal rules restrict any use of the information to criminally investigate or prosecute any alcohol or drug abuse patient.[facility] the event this information is protected by the Federal Confidentiality of Alcohol and Drug Abuse Patient Records regulations: The Federal rules restrict any use of the information to criminally investigate or prosecute any alcohol or drug abuse patient.[facility] the event this information is protected by the Federal Confidentiality of Alcohol and Drug Abuse Patient Records regulations: The Federal rules restrict any use of the information to criminally investigate or prosecute any alcohol or drug abuse patient.[facility] Center[facility] the event this information is protected by the Federal Confidentiality of Alcohol and Drug Abuse Patient Records regulations: The Federal rules restrict any use of the information to criminally investigate or prosecute any alcohol or drug abuse patient.[facility] the event this information is protected by the Federal Confidentiality of Alcohol and Drug Abuse Patient Records regulations: The Federal rules restrict any use of the information to criminally investigate or prosecute any alcohol or drug abuse patient.[facility] the event this information is protected by the Federal Confidentiality of Alcohol and Drug Abuse Patient Records regulations: The Federal rules restrict any use of the information to criminally investigate or prosecute any alcohol or drug abuse patient.[facility] Center[facility] the event this information is protected by the Federal Confidentiality of Alcohol and Drug Abuse Patient Records regulations: The Federal rules restrict any use of the information to criminally investigate or prosecute any alcohol or drug abuse patient.[facility] Center[facility] the event this information is protected by the Federal Confidentiality of Alcohol and Drug Abuse Patient Records regulations: The Federal rules restrict any use of the information to criminally investigate or prosecute any alcohol or drug abuse patient.[facility] the event this information is protected by the Federal Confidentiality of Alcohol and Drug Abuse Patient Records regulations: The Federal rules restrict any use of the information to criminally investigate or prosecute any alcohol or drug abuse patient.[facility] Care Teams (unrecognized sec tion [...] MD Other Provider Active Chery Coronado , PRESS ASSISTANT AND FEEDER Other Provider Active José Miguel Tellez , DO Other Provider Active George Chan MD Other Provider Active Justice De Oliveira , Other Provider Active Enrrique Mota MD Other [...] MD Other Provider Active Faustina Barr , REGIONAL OFFICE COORDINATOR-C Other Provider Active Valente Lauren MD Other [...] Honey Rabago DO Primary Care Provider Active Marvin Peter , DO Emergency Provider Active Enrrique Mota MD Admit Provider Active Jairo Benson MD Other Provider Active Oswaldo Almonte MD Other Provider Active Gaye Claire MD Attending Provider Active Sensory Scientist Relationship Specialty Start Date End Date Hima Honey Mcgrath, DO [address] [place] [address] PCP - General 02/16/05 Sensory Scientist Relationship Specialty Start Date End Date Hima Honey Mcgrath, DO [address] [place] [address] PCP - General 02/16/05 Sensory Scientist Relationship Specialty Start Date End Date Hima Honey Mcgrath, DO [address] [place] [address] PCP - General 02/16/05 Team Status: Active Member Role Status Dates Honey Rabago DO Primary Care Provider Active Alcides Moya MD Admit Provider, Attending Provider A ctive Maggy Mehta , RN Other Provider Active Sasha Hannah , RN Other Provider Active Nadia Dutton , RN Other Provider Active Anuradha Garrett , KORTNEY Other Provider Active Karen Smith , KORTNEY Other Provider Active Erika Ayon , KORTNEY Other Provider Active Familia Villatoro MD Other Provider Active Misha Ziegler MD Other Provider Active Chery Coronado PRESS ASSISTANT AND FEEDER Other Provider Active José Miguel Tellez , [...] MD Other Provider Active Faustina Barr , REGIONAL OFFICE COORDINATOR-C Other Provider Active Valente Lauren MD Other Provider Active Kareem Elizondo MD Other Provider Active Italia Colbert MD Other Provider Active Ronan Davidson MD Other Provider Active Shantel Nayak , DO Other Provider Active Kaylie Mooney MD Other Provider Active Michael Del Rio , DO Other Provider Active Sony Canela , DO Other Provider Active Amanda Jaimes , PRESS ASSISTANT AND FEEDER Other Provider Active Lázaro Pratt , DO Other Provider Active Corona Weathers MD Other Provider Active Lee Ann Terry , KORTNEY Other Provider Active Team Status: Inactive Member Role Status Dates Honey Rabago , DO Primary Care Provider Active Alton Valderrama , DO Emergency Provider Active Team Status: Inactive Member Role Status Dates Holger Dorado , DO Emergency Provider Active Honey Rabago DO Primary Care Provider Active Team Status: Active Member Role Status Dates Honey Rabago DO Primary Care Provider, Attending Paula mock Active Sensory Scientist Relationship Specialty Start Date End Date Honey Rabago, DO [address] [place] [address] PCP - General 02/16/05 Sensory Scientist Relationship Specialty Start Date End Date Honey Rabago, DO [address] [place] [address] PCP - General 02/16/05 Sensory Scientist Relationship Specialty Start Date End Date Honey Rabago, DO [address] [place] [address] PCP - General 02/16/05 Sensory Scientist Relationship Specialty Start Date End Date Honey Rabago, DO [address] [place] [address] PCP - General 02/16/05 Sensory Scientist Relationship Specialty Start Date End Date Honey Rabago DO [address] [place] [address] PCP - General 02/16/05 Sensory Scientist Relationship Specialty Start Date End Date Honey Rabago DO [address] [place] [address] PCP - General 02/16/05 Sensory Scientist Relationship Specialty Start Date End Date Honey Rabago DO PCP - General Internal Medicine 07/28/22 Sensory Scientist Relationship Specialty Start Date End Date Honey Rabago DO [address] [place] [address] PCP - General 02/16/05 Sensory Scientist Relationship Specialty Start Date End Date Honey Rabago DO [address] [place] [address] PCP - General 02/16/05 Sensory Scientist Relationship Specialty Start Date End Date Honey Rabago DO [address] [place] [address] PCP - General Internal Medicine 05/04/23 Albin Sherman MD [address] [place] [address] Referring Physician Pulmonary Disease 07/29/23 Sensory Scientist Relationship Specialty Start Date End Date Honey Rabago DO [address] [place] [address] PCP - General Internal Medicine 05/04/23 Albin Sherman MD [address] [place] [address] Referring Physician Pulmonary Disease 07/29/23 Sensory Scientist Relationship Specialty Start Date End Date Honey Rabago DO [address] [place] [address] PCP - General 02/16/05 Sensory Scientist Relationship Specialty Start Date End Date Honey Rabago DO [address] [place] [address] PCP - General Internal Medicine 05/04/23 Albin Sherman MD [address] [place] [address] Referring Physician Pulmonary Disease 07/29/23 Sensory Scientist Relationship Specialty Start Date End Date Honey Rabago DO [address] [place] [address] PCP - General Internal Medicine 05/04/23 Albin Sherman MD [address] [facility] [place] [address] Referring Physician Pulmonary Disease 07/29/23 Sensory Scientist Relationship Specialty Start Date End Date Honey Rabago DO [address] [place] [address] PCP - General 02/16/05 Sensory Scientist Relationship Specialty Start Date End Date Honey Rabago DO [address] [place] [address] PCP - General Internal Medicine 05/04/23 Albin Sherman MD [address] [facility] [address] Referring Physician Pulmonary Disease 07/29/23 Sensory Scientist Relationship Specialty Start Date End Date Honey Rabago DO [address] [place] [address] PCP - General Internal Medicine 05/04/23 Albin Sherman MD [address] [facility] [place] [address] Referring Physician Pulmonary Disease 07/29/23 Sensory Scientist Relationship Specialty Start Date End Date Honey Rabago DO [address] [place] [address] PCP - General Internal Medicine 05/04/23 Albin Sherman MD [address] [place] [address] Referring Physician Pulmonary Disease 07/29/23 Sensory Scientist Relationship Specialty Start Date End Date Honey Rabago DO [address] [facility] [address] [place] [address] PCP - General Internal Medicine 05/04/23 Albin Sherman MD [address] [place] [address] Referring Physician Pulmonary Disease 07/29/23 Sensory Scientist Relationship Specialty Start Date End Date Honey Rabago DO [address] [address] PCP - General Internal Medicine 05/04/23 Albin Sherman MD [address] [place] [address] Referring Physician Pulmonary Disease 07/29/23 Sensory Scientist Relationship Specialty Start Date End Date Honey Rabago DO [address] [address] PCP - General 02/16/05 FOR RECORDS PERTAINING [...] BE BASED ON THE PRIMARY CLINICAL RECORDS. [facility] Mineralist [facility]. provides no warranty or guarantee of the accuracy or completeness of information in this document.
[2024-03-15] MEDS: CARBIDOPA/LEVODOPA 25 MG-100 MG TABLET 1 TAB PO (23:39)
[2024-03-16] VITALS (9 sets, daily range): BP systolic 106–163; BP diastolic 65–78; PULSE 60–90; TEMP 36.1–37.3; O2SAT 90–99
[2024-03-16] MEDS: LEVOTHYROXINE SODIUM 75 MCG TABLET PO (06:00)
[2024-03-16] MEDS: CARBIDOPA/LEVODOPA 25 MG-100 MG TABLET 1.5 TAB PO (06:02)
[2024-03-16 06:14] LABS: Basophils Percent Auto 0.3 % (0.2-2.0); Eosinophils Percent Auto 0.2 % (0.9-7.0); Hematocrit 38.9 % (36.0-48.0); Hemoglobin 11.9 g/dL (12.0-16.0); Immature Granulocytes Abs Auto 0.02 10^3/uL (0.00-0.03); Immature Granulocytes Pct Auto 0.3 % (0.0-0.5); Lymphocytes Absolute Auto 1.3 10^3/uL (1.2-3.8); Lymphocytes Percent Auto 20.5 % (20.5-60.0); Mean Corpuscular HGB Conc 30.6 g/dL (29.9-35.2); Mean Corpuscular Hemoglobin 29.5 pg (26.7-34.0); Mean Corpuscular Volume 96.5 fL (81.0-99.0); Mean Platelet Volume 10.3 fL (9.5-13.5); Monocytes Absolute Auto 0.7 10^3/uL (0.3-0.8); Monocytes Percent Auto 11.2 % (1.7-12.0); Neutrophils Absolute Auto 4.4 10^3/uL (1.4-6.5); Neutrophils Percent Auto 67.5 % (43.0-75.0); Platelet Count 149 10^3/uL (150-450); Red Blood Count 4.03 10^6/uL (4.20-5.40); Red Cell Distribution Width 16.1 % (11.0-15.0); White Blood Count 6.4 10^3/uL (4.0-11.0)
[2024-03-16 06:23] LABS: Anion Gap 11.2; Calcium 8.9 mg/dL (8.5-10.1); Carbon Dioxide 31.7 mmol/L (21.0-32.0); Chloride 102 mmol/L (98-107); Estimated GFR (African America >60 (>=60 mL/min/1.73m^2); Estimated GFR (Non-African Ame 59 (>=60 mL/min/1.73m^2); Glucose 94 mg/dL (74-106); Potassium 3.9 mmol/L (3.5-5.1); Sodium 141 mmol/L (136-145)
[2024-03-16 06:33] LABS: Troponin I High Sensitivity 12.1 pg/mL (4.0-51.3)
[2024-03-16 06:39] LABS: Alanine Aminotransferase 9 U/L (14-59); Albumin Globulin Ratio 0.7; Alkaline Phosphatase 103 U/L (46-116); Aspartate Amino Transferase 20 U/L (15-37); Bilirubin Direct 0.2 mg/dL (0.0-0.2); Bilirubin Total 0.8 mg/dL (0.2-1.0); Globulin 4.3 g/dL; Thyroid Stimulating Hormone 0.277 uIU/mL (0.358-3.740); Total Protein 7.3 g/dL (6.4-8.2)
[2024-03-16 07:05] LABS: INR 1.84; Prothrombin Time 18.4 sec (9.0-11.6)
[2024-03-16] MEDS: CETIRIZINE HCL 10 MG TABLET 20 MG PO (08:37)
[2024-03-16] MEDS: ASPIRIN 81 MG TAB.CHEW PO (08:37)
[2024-03-16] MEDS: CHOLECALCIFEROL (VITAMIN D3) 125 MCG/5,000 UNIT TABLET PO (08:38)
[2024-03-16] MEDS: DEXAMETHASONE SOD PHOS 4 MG/ML VIAL 6 MG IV (08:38)
[2024-03-16] MEDS: FAMOTIDINE 20 MG TABLET 40 MG PO ×2 (08:39→21:28)
[2024-03-16] MEDS: METOPROLOL TARTRATE 50 MG TABLET 75 MG PO ×2 (08:40→21:29)
[2024-03-16] MEDS: METFORMIN HCL 500 MG TABLET PO ×2 (08:40→21:28)
[2024-03-16] MEDS: POLYETHYLENE GLYCOL 3350 17 GM POWDER PACKET PO (08:41)
[2024-03-16] MEDS: VITS A,C,E/LUTEIN/MINERALS 1 TABLET 1 TAB PO ×2 (08:41→21:27)
[2024-03-16] MEDS: VENLAFAXINE HCL ER 75 MG CAPSULE 150 MG PO (08:41)
--- NOTE | 2024-03-16 09:16 | CM.NOTE ---
Rounds made with Dr. Jones. Dr. Jones discussed labs, treatment plan with Shayy. PT/OT ordered to eval for needs. No discharge planned for today
--- NOTE | 2024-03-16 10:32 | P.PN_ITS ---
Progress Note: Subjective Subjective Interval history: Patient does feel a bit better this morning she states, less cough Exam Constitutional Vital Signs, click to edit/add: Last Vital Signs Temp 97.5 F L 03/16/24 08:34 Pulse 90 03/16/24 08:34 Resp 18 03/16/24 08:34 BP 155/73 H 03/16/24 08:34 Pulse Ox 93 L 03/16/24 08:34 O2 Del Method Room Air 03/16/24 08:34 Documenting provider has reviewed patient's vital signs: yes Common normals: no apparent distress Chest Common normals: inspection of chest normal Respiratory Common normals: normal respiratory effort (Conversational dyspnea resolved) and no retractions Effort & inspection: does not use accessory muscles Auscultation: rhonchi (Persisting but improved) Cardio Common normals: regular rate and regular rhythm Extremity Common normals: abnormal to inspection (1+ edema not normal for her) Neuro Common normals: oriented x3, CN's II-XII intact bilaterally and moves all extremities Progress Note: Objective Labs Labs: Short CBC 03/15/24 03/16/24 Range/Units 13:05 06:03 WBC 7.2 6.4 (4.0-11.0) 10^3/uL Hgb 11.5 L 11.9 L (12.0-16.0) g/dL Hct 36.8 38.9 (36.0-48.0) % Plt Count 175 149 L (150-450) 10^3/uL BMP 03/15/24 03/16/24 13:05 06:03 Sodium 140 141 Potassium 3.9 3.9 Chloride 103 102 Carbon Dioxide 29.5 31.7 BUN 17.0 10.0 Creatinine 1.14 H 0.91 Glucose 138 H 94 Calcium 9.1 8.9 Liver Function 03/16/24 Range/Units 06:03 Total Bilirubin 0.8 (0.2-1.0) mg/dL Direct Bilirubin 0.2 (0.0-0.2) mg/dL AST 20 (15-37) U/L ALT 9 L (14-59) U/L Alkaline Phosphatase 103 (46-116) U/L Albumin 3.0 L (3.4-5.0) g/dL Progress Note: A&P Assessment and Plan (1) COVID-19: (2) Fall: (3) Acute hyperglycemia: Plan Admission findings: Tachycardia, acute elevation in creatinine secondary to acute COVID-19, with patient's age, diabetes, Parkinson's and a history of coronary artery disease patient is at high risk for progression to severe COVID. Will admit patient COVID-19 without significant hypoxia at this time-hold off on remdesivir but will do all the other usual treatments. Inhalers, steroids, Zyrtec, Pepcid if patient's condition deteriorates will start patient on remdesivir Fluid over load-give 1 dose of Lasix, try to keep patient on the dry side due to the COVID-19 History of acute UTI-will check urinalysis Iron deficiency anemia-monitor daily Mild acute dehydration with acute elevation in her creatinine of 132.6% above baseline, holding off on IV fluids secondary to patients with COVID-19 preferring to keep them on the dry side-needs a dose of Lasix today, creatinine is back to her normal, but does have significant edema and now with the elevation of BNP Depression-continue with home medications GERD continue with antacid medicines, Pepcid seems to be helpful with COVID-19, so we will go with that instead of the omeprazole Hypertension with a history coronary artery disease-maintain current medications Admission status: Patient with acute COVID-19 and progressed weak quickly to weakness and mild dehydration, with patient's heart disease diabetes and Parkinson's she is at high risk for complications due to COVID-19, will be aggressive with management holding off only on the remdesivir secondary to no hypoxia, medically necessary treatment will span 2 midnights. Inpatient status ?
[2024-03-16] MEDS: CARBIDOPA/LEVODOPA 25 MG-100 MG TABLET 1 TAB PO ×2 (11:31→17:01)
[2024-03-16] MEDS: FUROSEMIDE 40 MG/4 ML VIAL IVP (11:31)
[2024-03-16 11:36] LABS: Glucometer 212 mg/dL (74-106)
[2024-03-16] MEDS: INSULIN ASPART 300 UNIT/3 ML PEN SUBQ ×3 (11:40→21:31)
--- NOTE | 2024-03-16 13:24 | SWNOTE1 ---
SW met with pt to discuss dc needs. Pt is from [place]. [place] walk[place] at [place]. SW and pt spoke about going to rehab for a short time for strengthening. Pt is agreeable to this and would like to go to [facility] if possible. Initially [facility] did not have openings, but Julianne from [facility] called while in room and they do have openings. Pt would like to go there. SW explained to pt that she is a precert and we have to wait for approval. She voiced understanding. Referral sent to [facility]. Referral included face sheet, ED note, H&P, provider notes, case management report, wound consult, nursing notes, diagnostic imaging, med list, and PT/OT notes.
--- NOTE | 2024-03-16 13:26 | SWNOTE1 ---
Important Message from [employer] reviewed and discussed with patient. Pt. verbalized understanding and signed the form. Original given to patient and copy placed in patient?s chart.
--- NOTE | 2024-03-16 13:40 | SWNOTE1 ---
SW called and spoke to pt's son, Jose David. ANNE explaind that rehab was recommended and that pt wanted [facility]. Jose David in agreement with the plan.
[2024-03-16] MEDS: VENLAFAXINE HCL ER 75 MG CAPSULE PO (13:41)
--- NOTE | 2024-03-16 15:29 | SWNOTE1 ---
[facility] and [facility]ert has been started for pt to go to [facility]. Julianne from [facility] will call the floor if pt gets approved over the weekend. ANNE completed HENS and took packet to the floor.
[2024-03-16 16:32] LABS: Glucometer 229 mg/dL (74-106)
[2024-03-16] MEDS: WARFARIN SODIUM 1 MG TABLET 2 MG PO (16:34)
[2024-03-16 21:24] LABS: Glucometer 173 mg/dL (74-106)
[2024-03-16] MEDS: ATORVASTATIN CALCIUM 40 MG TABLET PO (21:27)
[2024-03-16] MEDS: MIRTAZAPINE 15 MG TABLET 7.5 MG PO (21:30)
[2024-03-16 21:32] LABS: Bilirubin Urine NEGATIVE (NEGATIVE); Blood Urine NEGATIVE (NEGATIVE); Clarity Urine CLEAR (CLEAR); Color Urine LT. YELLOW (YELLOW); Glucose Urine UA NEGATIVE (NEGATIVE); Ketones Urine NEGATIVE (NEGATIVE); Leukocyte Esterase Urine NEGATIVE (NEGATIVE); Nitrite Urine NEGATIVE (NEGATIVE); Protein Urine NEGATIVE (NEG/TRACE); Urobilinogen Urine 0.2 EU/dL (0.2-1.0)
[2024-03-16 21:44] LABS: Amorphous Sediment Urine MODERATE; Bacteria Urine MODERATE #/HPF (NONE SEEN); Cast Seen? SEEN #/LPF (NONE SEEN); Crystals Seen? None Seen #/HPF (None Seen); Hyaline Casts Urine FEW; Mucus Urine SMALL (NONE SEEN); RBC Urine 0-2 #/HPF (0-2); Squamous Epithelial Cell Urine MODERATE #/LPF (NONE/RARE)
[2024-03-16 21:45] LABS: Urine Culture Indicated YES
[2024-03-16 23:33] LABS: BOX Test Reference Lab Firelands
[2024-03-17] VITALS (8 sets, daily range): BP systolic 115–154; BP diastolic 70–83; PULSE 50–85; TEMP 36.1–36.6; O2SAT 92–99
[2024-03-17] MEDS: CARBIDOPA/LEVODOPA 25 MG-100 MG TABLET 1 TAB PO ×3 (00:25→17:19)
[2024-03-17] MEDS: LEVOTHYROXINE SODIUM 75 MCG TABLET PO (05:44)
[2024-03-17] MEDS: CARBIDOPA/LEVODOPA 25 MG-100 MG TABLET 1.5 TAB PO (05:44)
[2024-03-17 06:23] LABS: Basophils Percent Auto 0.2 % (0.2-2.0); Hematocrit 39.2 % (36.0-48.0); Hemoglobin 12.5 g/dL (12.0-16.0); Immature Granulocytes Abs Auto 0.02 10^3/uL (0.00-0.03); Immature Granulocytes Pct Auto 0.3 % (0.0-0.5); Lymphocytes Absolute Auto 1.2 10^3/uL (1.2-3.8); Lymphocytes Percent Auto 18.3 % (20.5-60.0); Mean Corpuscular HGB Conc 31.9 g/dL (29.9-35.2); Mean Corpuscular Hemoglobin 30.2 pg (26.7-34.0); Mean Corpuscular Volume 94.7 fL (81.0-99.0); Monocytes Absolute Auto 0.5 10^3/uL (0.3-0.8); Monocytes Percent Auto 8.1 % (1.7-12.0); Neutrophils Absolute Auto 4.9 10^3/uL (1.4-6.5); Neutrophils Percent Auto 73.1 % (43.0-75.0); Platelet Count 169 10^3/uL (150-450); Red Blood Count 4.14 10^6/uL (4.20-5.40); Red Cell Distribution Width 15.5 % (11.0-15.0); White Blood Count 6.7 10^3/uL (4.0-11.0)
[2024-03-17 06:42] LABS: INR 2.64; Prothrombin Time 25.4 sec (9.0-11.6)
[2024-03-17 08:05] LABS: Glucometer 140 mg/dL (74-106)
[2024-03-17] MEDS: ASPIRIN 81 MG TAB.CHEW PO (09:56)
[2024-03-17] MEDS: CHOLECALCIFEROL (VITAMIN D3) 125 MCG/5,000 UNIT TABLET PO (09:56)
[2024-03-17] MEDS: FAMOTIDINE 20 MG TABLET 40 MG PO ×2 (09:56→21:48)
[2024-03-17] MEDS: POLYETHYLENE GLYCOL 3350 17 GM POWDER PACKET PO (09:56)
[2024-03-17] MEDS: METFORMIN HCL 500 MG TABLET PO ×2 (09:56→21:50)
[2024-03-17] MEDS: VITS A,C,E/LUTEIN/MINERALS 1 TABLET 1 TAB PO ×2 (09:56→21:48)
[2024-03-17] MEDS: METOPROLOL TARTRATE 50 MG TABLET 75 MG PO ×2 (09:56→21:48)
[2024-03-17] MEDS: CETIRIZINE HCL 10 MG TABLET 20 MG PO (09:56)
[2024-03-17] MEDS: VENLAFAXINE HCL ER 75 MG CAPSULE 150 MG PO (09:56)
[2024-03-17] MEDS: DEXAMETHASONE SOD PHOS 4 MG/ML VIAL 6 MG IV (09:57)
--- NOTE | 2024-03-17 10:55 | PT.DAILY ---
Physical Therapy Daily Note PT Daily Note/Assess Start: 03/17/24 10:37 Freq: Status: Active Protocol: Document 03/17/24 10:37 [id number] (Rec: 03/17/24 10:54 [id number]) Physical Therapy Daily Note/Assessment Time In/Time Out Time In 08:46 Time Out 09:10 Pain In Pain Level 0 Pain Out Pain Level 0 Subjective Subjective Patient received supine in bed and is agreeable to participate with PT. Requests to use commode. Therapeutic Exercise Time Therapeutic Exercise 8 Minutes (minutes) Therapeutic Exercise 1 Units Therapeutic Exercise Treatment Therapeutic Exercise Patient performed supine YASMEEN ankle pumps, HS/quad sets Treatment x 10 reps. Patient performed seated ther ex to YASMEEN LE to increase strength with gait and ADL's. YASMEEN heel/toe raises, LAQ's, resisted hip ABD/ADD, seated side step to increase strength x 10 reps. Therapeutic Activity Time Therapeutic Activity 16 Minutes (minutes) Therapeutic Activity 1 Units Therapeutic Activity Treatment Bed Mobility Ability Minimum Assist Chair Transfer Minimum Assist Ability Therapeutic Activity Bed mobility: supine to R sit with use of R hand rail Comments CGA to MIN A to scoot to EOB. Sitting balance good without use of hand for support. Transfer: sit to stand to RW MIN A +1, VC's for hand placement for safety. Patient ambulated ~15 feet x 1 with RW with CGA +1 with verbal cues for RW navigation. Patient required MAX assist to doff brief. Stand to sit to commode is MIN A +1 to control decent to commode. Patient is independent in cleaning [place] area. Transfer : commode to RW MIN A +1 with VC's for safe hand placement. Patient ambulated ~28 feet x 1 with RW with CGA +1 and VC's for walk management to navigate obstacles. Patient is MAX A +1 to ese brief. Transfer : stand to sit MIN A +1 to control decent to chair with VC's to place hands of arm rests for assist. Patient feet elevated in chair, CBWR and nursing notified of patient placement. Total Physical Therapy Time Total Therapy 24 Minutes Total Physical 2 Therapy Units Summary Daily Note Summary Patient demonstrates slight improved functional mobility requiring less assist date. Requires verbal cueing for walker management and safe hand placement. Ambulation distance increased as well. Patient would benefit from SNF to address functional deficits for return to PLOF.
[2024-03-17 12:37] LABS: Glucometer 198 mg/dL (74-106)
[2024-03-17] MEDS: INSULIN ASPART 300 UNIT/3 ML PEN SUBQ ×3 (13:13→21:51)
[2024-03-17] MEDS: CEFTRIAXONE 1,000 MG in 0.9 % SODIUM CHLORIDE 50 ML 100 MG IV (15:06)
[2024-03-17] MEDS: VENLAFAXINE HCL ER 75 MG CAPSULE PO (15:07)
[2024-03-17] MEDS: 0.9 % SODIUM CHLORIDE 250 ML 10 ML IV (15:07)
--- NOTE | 2024-03-17 15:08 | P.IMPN_ITS ---
Progress Note: A&P Assessment and Plan (1) COVID-19: Assessment and Plan: Denies resp symptoms. Monitor. No need for steroids/remdisvir. (2) Urinary tract infection: Assessment and Plan: On IV rocephin. F/u urine cx. Qualifiers: Urinary tract infection type: acute cystitis Hematuria presence: witho ut hematuria Qualified Code(s): N30.00 - Acute cystitis without hematuria (3) Fall: Assessment and Plan: PT/OT eval. Still feeling overall weak and unsteady. Quite possible that she will need rehab upon discharge. Qualifiers: Encounter type: subsequent encounter Qualified Code(s): W19.XXXD - Unspecified fall, subsequent encounter (4) Inability to walk: Assessment and Plan: PT/OT eval. Still feeling overall weak and unsteady. multifactorial and sec to underlying Parkinson, UTI and COVID. (5) Generalized weakness: Assessment and Plan: multifactorial and sec to underlying Parkinson, UTI and COVID. PT/OT. . (6) Parkinson disease: Assessment and Plan: C/w home medications Qualifiers: Dyskinesia presence: without dyskinesia Fluctuating manifestations: without fluctuating manifestations Qualified Code(s): G20.A1 - Parkinson's disease without dyskinesia, without mention of fluctuations (7) Hyperlipidemia: Assessment and Plan: C/w lipitor Qualifiers: Hyperlipidemia type: unspecified Qualified Code(s): E78.5 - Hyperlipidemia, unspecified (8) Diabetes mellitus: Assessment and Plan: SSI while inpatient. Qualifiers: Diabetes mellitus type: type 2 Diabetes mellitus terminal carman insulin use: without terminal carman use Diabetes mellitus complication status: without complication Qualified Code(s): E11.9 - Type 2 diabetes mellitus without complications (9) Hypothyroidism: Assessment and Plan: c/w levothyroxine Qualifiers: Hypothyroidism type: unspecified Qualified Code(s): E03.9 - Hypothyroidism, unspecified (10) Anticoagulated on Coumadin: Assessment and Plan: INR therapeutic. C/w coumadin Internal Medicine - PN: Subj Subjective Interval history: Seen and examined. Feels overall weak and tired. She does not feel safe at home. She feels unsteady on her feet and unable to walk safely even with a walker. Denies resp symptoms. No overnight events. Exam Constitutional Vital Signs, click to edit/add: Last Vital Signs Temp 97.8 F 03/17/24 12:00 Pulse 50 L 03/17/24 12:00 Resp 18 03/17/24 12:00 BP 115/70 03/17/24 12:00 Pulse Ox 98 03/17/24 12:00 O2 Del Method Room Air 03/17/24 12:00 Documenting provider has reviewed patient's vital signs: yes Common normals: no apparent distress and oriented x3 General appearance: cooperative Respiratory Common normals: normal respiratory effort and clear to auscultation bilaterally Effort & inspection: able to speak in complete sentences Auscultation: clear to auscultation bilaterally Cardio Common normals: regular rate, S1 normal heart sound and S2 normal heart sound Rate: regular rate Heart sounds: S1 normal and S2 normal Extremity Common normals: no clubbing, cyanosis or edema Neuro Common normals: oriented x3, moves all extremities and no focal motor deficits Psych Common normals: mental status grossly normal, denies hallucinations, denies homicidal ideation and denies suicidal ideation Internal Medicine - PN: Obj Da Labs Labs: Laboratory Results - last 24 hr 03/16/24 03/16/24 03/16/24 16:26 20:45 21:24 WBC RBC Hgb Hct MCV MCH MCHC RDW Plt Count MPV Neut % (Auto) Lymph % (Auto) [place] % (Auto) Eos % (Auto) Baso % (Auto) Neut # (Auto) Lymph # (Auto) [place] # (Auto) Eos # (Auto) Baso # (Auto) Abs Immat Gran (auto) Imm/Tot Granulo (auto) PT INR Urine Color Lt. yellow Urine Clarity Clear Urine pH 6.0 Ur Specific [place] 1.020 Urine Protein Negative Urine Glucose (UA) Negative Urine Ketones Negative Urine Occult Blood Negative Urine Nitrite Negative Urine Bilirubin Negative Urine Urobilinogen 0.2 Ur Leukocyte Esterase Negative Urine RBC 0-2 Urine WBC 2-5 A Ur Squamous Epith Cells Moderate A Urine Crystals None seen Amorphous Sediment Moderate Urine Bacteria Moderate A Urine Casts Seen A Hyaline Casts Few Urine Mucus Small A Ur Culture Indicated? Yes Ref Lab Order Date 03/16/24 Ref Lab Test Name Urine culture Ref Test Addition Info [facility] POC Glucose 229 H 173 H 03/17/24 03/17/24 03/17/24 06:01 08:01 12:34 WBC 6.7 RBC 4.14 L Hgb 12.5 Hct 39.2 MCV 94.7 MCH 30.2 MCHC 31.9 RDW 15.5 H Plt Count 169 MPV 10.0 Neut % (Auto) 73.1 Lymph % (Auto) 18.3 L [place] % (Auto) 8.1 Eos % (Auto) 0.0 L Baso % (Auto) 0.2 Neut # (Auto) 4.9 Lymph # (Auto) 1.2 [place] # (Auto) 0.5 Eos # (Auto) 0.0 Baso # (Auto) 0.0 Abs Immat Gran (auto) 0.02 Imm/Tot Granulo (auto) 0.3 PT 25.4 H INR 2.64 Urine Color Urine Clarity Urine pH Ur Specific [place] Urine Protein Urine Glucose (UA) Urine Ketones Urine Occult Blood Urine Nitrite Urine Bilirubin Urine Urobilinogen Ur Leukocyte Esterase Urine RBC Urine WBC Ur Squamous Epith Cells Urine Crystals Amorphous Sediment Urine Bacteria Urine Casts Hyaline Casts Urine Mucus Ur Culture Indicated? Ref Lab Order Date Ref Lab Test Name Ref Test Addition Info POC Glucose 140 H 198 H
[2024-03-17 16:45] LABS: Glucometer 185 mg/dL (74-106)
[2024-03-17] MEDS: WARFARIN SODIUM 1 MG TABLET 2 MG PO (17:16)
[2024-03-17 21:44] LABS: Glucometer 184 mg/dL (74-106)
[2024-03-17] MEDS: MIRTAZAPINE 15 MG TABLET 7.5 MG PO (21:50)
[2024-03-17] MEDS: ATORVASTATIN CALCIUM 40 MG TABLET PO (21:50)
[2024-03-18] MEDS: CARBIDOPA/LEVODOPA 25 MG-100 MG TABLET 1 TAB PO ×4 (00:09→23:19)
[2024-03-18 03:40] VITALS: BP 169/88; PULSE 80; TEMP 36.2; O2SAT 96
[2024-03-18] MEDS: CARBIDOPA/LEVODOPA 25 MG-100 MG TABLET 1.5 TAB PO (05:41)
[2024-03-18] MEDS: LEVOTHYROXINE SODIUM 75 MCG TABLET PO (05:41)
[2024-03-18 07:53] VITALS: BP 169/79; PULSE 72; TEMP 36.7; O2SAT 98
[2024-03-18 07:54] VITALS: PULSE 67
[2024-03-18] MEDS: POLYETHYLENE GLYCOL 3350 17 GM POWDER PACKET PO (09:41)
[2024-03-18] MEDS: CHOLECALCIFEROL (VITAMIN D3) 125 MCG/5,000 UNIT TABLET PO (09:41)
[2024-03-18] MEDS: METFORMIN HCL 500 MG TABLET PO ×2 (09:41→20:17)
[2024-03-18] MEDS: VENLAFAXINE HCL ER 75 MG CAPSULE 150 MG PO (09:41)
[2024-03-18] MEDS: FAMOTIDINE 20 MG TABLET 40 MG PO ×2 (09:41→20:16)
[2024-03-18] MEDS: VITS A,C,E/LUTEIN/MINERALS 1 TABLET 1 TAB PO ×2 (09:41→20:17)
[2024-03-18] MEDS: METOPROLOL TARTRATE 50 MG TABLET 75 MG PO ×2 (09:41→20:16)
[2024-03-18] MEDS: ASPIRIN 81 MG TAB.CHEW PO (09:41)
[2024-03-18] MEDS: CETIRIZINE HCL 10 MG TABLET 20 MG PO (09:41)
[2024-03-18] MEDS: DEXAMETHASONE 4 MG TABLET 6 MG PO (09:42)
--- NOTE | 2024-03-18 11:02 | PM.IMPN1 ---
Progress Note: A&P Assessment and Plan (1) COVID-19: Assessment and Plan: She is now complaining of WATTS. On PO Dexamethasone now. Will give one time dose of Lasix. (2) Urinary tract infection: Assessment and Plan: On IV rocephin. F/u urine cx. Qualifiers: Hematuria presence: without hematuria Urinary tract infection type: acute cystitis Qualified Code(s): N30.00 - Acute cystitis without hematuria (3) Fall: Assessment and Plan: PT/OT eval. Will need rehab placement. Still feeling overall weak and unsteady. Qualifiers: Encounter type: subsequent encounter Qualified Code(s): W19.XXXD - Unspecified fall, subsequent encounter (4) Inability to walk: Assessment and Plan: PT/OT eval. Still feeling overall weak and unsteady. multifactorial and sec to underlying Parkinson, UTI and COVID. (5) Generalized weakness: Assessment and Plan: multifactorial and sec to underlying Parkinson, UTI and COVID. PT/OT. . (6) Parkinson disease: Assessment and Plan: C/w home medications Qualifiers: Dyskinesia presence: without dyskinesia Fluctuating manifestations: without fluctuating manifestations Qualified Code(s): G20.A1 - Parkinson's disease without dyskinesia, without mention of fluctuations (7) Hyperlipidemia: Assessment and Plan: C/w lipitor Qualifiers: Hyperlipidemia type: unspecified Qualified Code(s): E78.5 - Hyperlipidemia, unspecified (8) Diabetes mellitus: Assessment and Plan: SSI while inpatient. Qualifiers: Diabetes mellitus type: type 2 Diabetes mellitus skilled nursing insulin use: without skilled nursing use Diabetes mellitus complication status: without complication Qualified Code(s): E11.9 - Type 2 diabetes mellitus without complications (9) Hypothyroidism: Assessment and Plan: c/w levothyroxine Qualifiers: Hypothyroidism type: unspecified Qualified Code(s): E03.9 - Hypothyroidism, unspecified (10) Anticoagulated on Coumadin: Assessment and Plan: INR therapeutic. C/w coumadin Internal Medicine - PN: Subj Subjective Interval history: Seen and examined. Feels SOB on minimal exertion. Feels overall weak and tired. She feels too unsteady to walk by herself. Exam Constitutional Vital Signs, click to edit/add: Last Vital Signs Temp 98.0 F 03/18/24 07:53 Pulse 67 03/18/24 07:54 Resp 18 03/18/24 07:54 BP 169/79 H 03/18/24 07:53 Pulse Ox 98 03/18/24 07:53 O2 Del Method Room Air 03/18/24 07:53 Documenting provider has reviewed patient's vital signs: yes Common normals: no apparent distress and oriented x3 General appearance: cooperative Respiratory Common normals: normal respiratory effort and no use of accessory muscles Effort & inspection: able to speak in complete sentences Auscultation: diminished lung sounds Cardio Common normals: regular rate, S1 normal heart sound and S2 normal heart sound Rate: regular rate Heart sounds: S1 normal and S2 normal Extremity Common normals: no clubbing, cyanosis or edema Neuro Common normals: oriented x3, moves all extremities and no focal motor deficits Psych Common normals: mental status grossly normal, denies hallucinations, denies homicidal ideation and denies suicidal ideation Internal Medicine - PN: Obj Da Labs Labs: Laboratory Results - last 24 hr 03/17/24 03/17/24 03/17/24 12:34 16:42 21:43 POC Glucose 198 H 185 H 184 H
[2024-03-18 11:19] LABS: Glucometer 155 mg/dL (74-106)
[2024-03-18 12:30] VITALS: O2SAT 99
[2024-03-18] MEDS: CEFTRIAXONE 1,000 MG in 0.9 % SODIUM CHLORIDE 50 ML 100 MG IV (13:23)
[2024-03-18] MEDS: INSULIN ASPART 300 UNIT/3 ML PEN SUBQ ×3 (13:24→20:26)
[2024-03-18] MEDS: VENLAFAXINE HCL ER 75 MG CAPSULE PO (13:24)
[2024-03-18] MEDS: FUROSEMIDE 40 MG/4 ML VIAL IVP (13:43)
[2024-03-18 15:00] VITALS: BP 128/81; PULSE 77; TEMP 36.6; O2SAT 99
[2024-03-18 16:43] LABS: Glucometer 231 mg/dL (74-106)
[2024-03-18] MEDS: WARFARIN SODIUM 1 MG TABLET 2 MG PO (17:02)
[2024-03-18] MEDS: MIRTAZAPINE 15 MG TABLET 7.5 MG PO (20:17)
[2024-03-18] MEDS: ATORVASTATIN CALCIUM 40 MG TABLET PO (20:17)
[2024-03-18 20:27] LABS: Glucometer 246 mg/dL (74-106)
[2024-03-18 23:26] VITALS: BP 132/77; PULSE 70; TEMP 36; O2SAT 98
[2024-03-19 01:11] VITALS: BP 141/75; PULSE 74; TEMP 35.8; O2SAT 96
[2024-03-19 03:53] VITALS: BP 156/82; PULSE 92; TEMP 36.4; O2SAT 92
[2024-03-19] MEDS: LEVOTHYROXINE SODIUM 75 MCG TABLET PO (05:36)
[2024-03-19] MEDS: CARBIDOPA/LEVODOPA 25 MG-100 MG TABLET 1.5 TAB PO (05:36)
[2024-03-19 07:38] LABS: Glucometer 149 mg/dL (74-106)
[2024-03-19 07:40] VITALS: BP 136/85; PULSE 79; TEMP 36.6; O2SAT 97
[2024-03-19] MEDS: INSULIN ASPART 300 UNIT/3 ML PEN SUBQ (08:19)
[2024-03-19] MEDS: CETIRIZINE HCL 10 MG TABLET 20 MG PO (09:42)
[2024-03-19] MEDS: VENLAFAXINE HCL ER 75 MG CAPSULE 150 MG PO (09:42)
[2024-03-19] MEDS: VITS A,C,E/LUTEIN/MINERALS 1 TABLET 1 TAB PO (09:42)
[2024-03-19] MEDS: METFORMIN HCL 500 MG TABLET PO (09:43)
[2024-03-19] MEDS: DEXAMETHASONE 4 MG TABLET 6 MG PO (09:43)
[2024-03-19] MEDS: ASPIRIN 81 MG TAB.CHEW PO (09:43)
[2024-03-19] MEDS: FAMOTIDINE 20 MG TABLET 40 MG PO (09:43)
[2024-03-19] MEDS: METOPROLOL TARTRATE 50 MG TABLET 75 MG PO (09:43)
[2024-03-19] MEDS: CHOLECALCIFEROL (VITAMIN D3) 125 MCG/5,000 UNIT TABLET PO (09:44)
[2024-03-19] MEDS: POLYETHYLENE GLYCOL 3350 17 GM POWDER PACKET PO (09:44)
--- NOTE | 2024-03-19 09:55 | PM.DS1 ---
DS: Providers Provider Date of admission: 03/15/24 23:13 Primary care physician: HONEY QUINONEZ Admitting clinician: Shakeel Jones Attending physician on admission: Shakeel Jones Consults: 03/15/24 18:01 Consult to Pharmacy Routine Consulting Provider: Reason for consultation: Please [place] me when Med Rec is Updated Has provider been notified: No Occupational Therapy Eval and Treat Routine Reason for consultation: Only if needed for Rehab Has provider been notified: No Physical Therapy Eval and Treat Routine Reason for consultation: Eval and Treat Has provider been notified: No Attending physician on discharge: Shaikh Akosua Discharging clinician: Shaikh Akosua Anticipated date of discharge: 03/19/24 DS: Diagnosis Discharge Diagnosis (1) COVID-19: (2) Urinary tract infection: Qualifiers: Hematuria presence: without hematuria Urinary tract infection type: acute cystitis Qualified Code(s): N30.00 - Acute cystitis without hematuria (3) Fall: Qualifiers: Encounter type: subsequent encounter Qualified Code(s): W19.XXXD - Unspecified fall, subsequent encounter (4) Inability to walk: (5) Generalized weakness: (6) Parkinson disease: Qualifiers: Dyskinesia presence: without dyskinesia Fluctuating manifestations: without fluctuating manifestations Qualified Code(s): G20.A1 - Parkinson's disease without dyskinesia, without mention of fluctuations (7) Hyperlipidemia: Qualifiers: Hyperlipidemia type: unspecified Qualified Code(s): E78.5 - Hyperlipidemia, unspecified (8) Diabetes mellitus: Qualifiers: Diabetes mellitus type: type 2 Diabetes mellitus nursing home insulin use: without intermission coordinator use Diabetes mellitus complication status: without complication Qualified Code(s): E11.9 - Type 2 diabetes mellitus without complications (9) Hypothyroidism: Qualifiers: Hypothyroidism type: unspecified Qualified Code(s): E03.9 - Hypothyroidism, unspecified (10) Anticoagulated on Coumadin: DS: Summary Hospital Course Hospital Course: 83 y o f, presented to ED for generalized weakness, cough and WATTS. She tested positive for COVID. Patient was admitted to generalized weakness, inability to ambulate due to COVID. She was also found to have UTI. She was treated with IVF, duonebs and systemic steroids. She received IV rocephin for UTI. She was eval by PT/OT. She clinically improved during admission. She is medically stable for discharge. Status at Discharge Functional status at discharge: uses cane/walker Overall status at discharge: patient is back to baseline Time Spent with Patient Time attestation: Total time spent providing and/or coordinating discharge services: Time spent: greater than 30 minutes Exam Constitutional Vital Signs, click to edit/add: Last Vital Signs Temp 97.9 F 03/19/24 07:40 Pulse 79 03/19/24 07:40 Resp 18 03/19/24 07:40 BP 136/85 03/19/24 07:40 Pulse Ox 97 03/19/24 07:40 O2 Del Method Room Air 03/19/24 07:40 Documenting provider has reviewed patient's vital signs: yes Common normals: no apparent distress and oriented x3 General appearance: cooperative Respiratory Common normals: normal respiratory effort and no use of accessory muscles Effort & inspection: able to speak in complete sentences Auscultation: diminished lung sounds Cardio Common normals: regular rate, S1 normal heart sound and S2 normal heart sound Rate: regular rate Heart sounds: S1 normal and S2 normal Extremity Common normals: no clubbing, cyanosis or edema Neuro Common normals: oriented x3, moves all extremities and no focal motor deficits Psych Common normals: mental status grossly normal, denies hallucinations, denies homicidal ideation and denies suicidal ideation DS: Data Data Completed and Pending Labs on day of discharge: Labs from last 24 hours 03/19/24 03/18/24 03/18/24 07:37 20:25 16:35 POC Glucose 149 H 246 H 231 H 03/18/24 11:14 POC Glucose 155 H Discharge Plan Discharge Disposition: er SNF Condition: Good Discharge Medications: New cefuroxime axetil 500 mg tablet 500 mg PO BID 5 Days Qty: 10 0RF dexamethasone 6 mg tablet 6 mg PO DAILY Qty: 7 0RF Continued acetaminophen 500 mg tablet 1,000 mg PO DAILY PRN (Reason: pain) atorvastatin 40 mg tablet 40 mg PO DAILY carbidopa-levodopa 25-100 mg tablet 1.5 tab PO DAILY Rx Instructions: an additional 1 tab 3 x daily levothyroxine 75 mcg tablet 75 mcg PO DAILY metformin 500 mg tablet 500 mg PO Q12H mirtazapine 7.5 mg tablet 7.5 mg PO DAILY omeprazole 20 mg capsule,delayed release(DR/EC) 20 mg PO DAILY venlafaxine 150 mg capsule,extended release 24hr 150 mg PO DAILY venlafaxine 75 mg tablet 75 mg PO DAILY warfarin 2 mg tablet 3 mg PO .complex Rx Instructions: weds estradiol 0.01 % (0.1 mg/gram) cream 1 appful VAGINAL .weekly aspirin 81 mg capsule 81 mg PO DAILY diclofenac sodium 1 % gel 2 g topical BID PRN (Reason: pain) Rx Instructions: apply to single elbow, wrist or hand; for hand includes palm/fingers/back of hand Mounjaro 5 mg/0.5 mL pen injector 5 mg subcut QWEEK polyethylene glycol 3350 [Miralax] 17 gram/dose powder 17 g PO DAILY PreserVision AREDS-2 250-90-40-1 mg tablet,chewable 1 tab PO BID cyanocobalamin (vitamin B-12) 1,000 mcg capsule 1,000 mcg PO DAILY cholecalciferol (vitamin D3) 125 mcg (5,000 unit) capsule 125 mcg PO DAILY ketoconazole 2 % shampoo 1 applic TOPICAL MOWEFR@09 PRN (Reason: DIRECTED) Patient Comments: APPLY DIRECTED fluocinolone and shower cap 0.01 % oil 1 applic TOPICAL .QD PRN (Reason: DIRECTED) Rx Instructions: APPLY TO SCALP metoprolol tartrate 50 mg tablet 50 mg PO Q12H lidocaine [Aspercreme (lidocaine)] 4 % adhesive patch,medicated 1 patch topical DAILY carbidopa-levodopa 25-100 mg tablet 1 tab PO TID PreserVision AREDS-2 250-90-40-1 mg tablet,chewable 1 tab PO BID Robitussin Cough-Chest Jaime DM 10-200 mg capsule 1 tab-cap PO Q8H Print Language: Niuean Graduate Studies Dean/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
[2024-03-19 10:00] VITALS: O2SAT 96
--- NOTE | 2024-03-19 10:00 | CM.NOTE ---
Rounds made with Dr. South, discussed with pt about discharge plan. Pt states she did well with PT this AM and is feeling strong enough to return to [facility]. Updates SW, notes sent to [facility].
--- NOTE | 2024-03-19 10:11 | CM.NOTE ---
2nd Important Message From Medicare discussed with pt, pt verbalizes understanding and denies any questions or concerns.
--- NOTE | 2024-03-19 10:25 | PT.DAILY ---
Physical Therapy Daily Note PT Daily Note/Assess Start: 03/17/24 10:37 Freq: Status: Active Protocol: Document 03/19/24 10:21 [email or web address] (Rec: 03/19/24 10:24 [id number]) Physical Therapy Daily Note/Assessment Time In/Time Out Time In 09:45 Time Out 10:00 Pain In Pain N/A Pain Out Pain N/A Subjective Subjective Pt supine upon arrival. Confusion noticed. Agrees to PT . Therapeutic Exercise Time Therapeutic Exercise 5 Minutes (minutes) Therapeutic Exercise 0 Units Therapeutic Exercise Treatment Therapeutic Exercise Seated bilat LE strengthening ex completed in BS chair Treatment 10x with occ vc for proper form/speed. Therapeutic Activity Time Therapeutic Activity 8 Minutes (minutes) Therapeutic Activity 1 Units Therapeutic Activity Treatment Bed Mobility Ability Minimum Assist Chair Transfer Contact Guard Assist Ability Therapeutic Activity Supine>sit Mello to advance upper body to sit EOB. Comments Steady static seated balance noticed. Pt sit>stand with CGA and increased time to complete. Amb 25' with RW, CGA. Short step length noticed - needs vc to remind her where we are going. Pt remains in BS for seated rest break. Sit>stand 5x from BS chair CGA with vc for hand placement and to scoot forward in chair. Pt remains in BS chair upon completion with call light within reach and needs met. Total Physical Therapy Time Total Therapy 13 Minutes Total Physical 1 Therapy Units Summary Daily Note Summary Improved gait ability. Sit>stand transfers improved but cont to require assistance for supine>sit.
--- NOTE | 2024-03-19 10:53 | SWNOTE1 ---
precert still pending. ANNE sent PT note from Tuesday and today, dc summary, dc med rec, and vitals to Julianne at [facility] for precert. Doctor was possibly going to discharge pt back to [facility]isted [facility], but Faustina the director at [facility] reviewed therapy notes and voiced she has been declining ever since her fall in February and this is not her baseline and pt is not appropriate for [facility]. Awaiting approval for SNF.
[2024-03-19] MEDS: CARBIDOPA/LEVODOPA 25 MG-100 MG TABLET 1 TAB PO (11:05)
[2024-03-19 11:38] LABS: Glucometer 127 mg/dL (74-106)
--- NOTE | 2024-03-19 12:46 | SWNOTE1 ---
ANNE received message from Julianne at [facility] and pt is approved to go to [facility] skilled. ANNE let doctor know and nurse.
--- NOTE | 2024-03-19 12:59 | SWNOTE1 ---
ANNE already completed HENS and dc med rec was sent over this morning. ANNE called and set up trips for 2:30-2:45. ANNE notified nursing, [facility], and pt's son of time.
[2024-03-19] MEDS: VENLAFAXINE HCL ER 75 MG CAPSULE PO (14:03)
== END 2024-03-19 14:30 | DRG 178 ==
LOC: ER 16:53 → MS 23:22
PROVIDERS: Internal Medicine; Admitting Provider Family Medicine; Emergency Provider Emergency Medicine; PCP Internal Medicine; Visit Provider Family Medicine
DX: U07.1 COVID-19 (principal); N30.00 Acute cystitis without hematuria; D50.9 Iron deficiency anemia, unspecified; E03.9 Hypothyroidism, unspecified; E11.65 Type 2 diabetes mellitus with hyperglycemia; E86.0 Dehydration; E78.5 Hyperlipidemia, unspecified; E87.70 Fluid overload, unspecified; F32.A Depression, unspecified; G20.A1 Parkinson's disease without dyskinesia, without mention of fluctuations; I10 Essential (primary) hypertension; I25.10 Atherosclerotic heart disease of native coronary artery without angina pectoris; K21.9 Gastro-esophageal reflux disease without esophagitis; R29.6 Repeated falls; Z79.01 Long term (current) use of anticoagulants; Z79.82 Long term (current) use of aspirin; Z79.84 Long term (current) use of oral hypoglycemic drugs; Z79.85 Long-term (current) use of injectable non-insulin antidiabetic drugs; Z79.890 Hormone replacement therapy; Z88.5 Allergy status to narcotic agent; Z88.8 Allergy status to other drugs, medicaments and biological substances; Z91.040 Latex allergy status
CPT/HCPCS: 36415; 71045; 80048; 80076; 81001; 82948; 83880; 84436; 84443; 84484; 85025; 85610; 87070; 87086; 87804; 87811; 93005; 94667; 94668; 94761; 97110; 97162; 97165; 97530; 99285; J0696; J1100; J1940; J8540

== ENCOUNTER 2024-05-02 12:58 | Outpatient (OUT) | payer MEDICARE, SELFPAY ==
--- NOTE | 2024-05-02 | CT_ITS ---
The [address] [address] Patient Name: ALTON SALMERON MRN: [id number] date: 1940 Sex: F Assigned Patient Location: CARD Current Patient Location: Accession/Order Number: [id number] Exam Date: 05/03/2024 10:42 Report Date: 05/03/2024 10:53 At the request of: JUANI MARTINEZ DO Procedure: CT chest high res HIGH-RESOLUTION CT CHEST WITHOUT CONTRAST COMPARISON: 10/18/2023 CLINICAL DATA: Follow-up pulmonary fibrosis. Spiral axial unenhanced images were obtained to the chest. Images were reconstructed at 1 mm sections at 10 mm increments. Patient was also scanned in prone position with high-resolution technique. Images were reviewed using both narrow and wide window settings. This CT exam was performed using one or more following dose reduction techniques: Automated exposure control, adjustment of the mA and/or kV according to patient size, or use of iterative reconstruction technique. The heart is normal size. No pericardial effusion is seen. Coronary artery disease is noted. No aortic aneurysm is present. There is atherosclerotic plaque involving the aorta and proximal great vessels. There are hemostasis clips at the lower neck on the left. There are similar mediastinal lymph nodes. No developing lymphadenopathy is identified. The bony thorax, as visualized shows no acute findings. Subpleural lines and interstitial thickening are again seen, greater at the bases. There is no developing consolidation, pleural effusion or pneumothorax. Limited imaging through the upper abdomen shows a tiny hiatal hernia. There are no other contributory findings. CT/CT chest high res IMPRESSION: SIMILAR INTERSTITIAL DISEASE. NO OTHER ACUTE FINDINGS. Impression dictated by: Carrie Miguel M.D.05/03/2024 10:53 AM Dictation Location: [facility] Electronically authenticated by: [id number] Y Date: 05/03/2024 10:53
--- NOTE | 2024-05-02 14:01 | RT_ITS ---
The [facility] Test Date: 2024-05-02 Pat Name: ALTON SALMERON Department: Room: - Gender: Female Mentally Retarded Teacher: Chery Morrison RRT : 1940 Requested By: Albin Sherman Order Number: [id number] Reading MD: Albin Sherman Interpretive Statements Pulmonary function testing was completed according to ATS criteria. Findings were considered accurate and reproducible. No bronchodilator was administered due to normal spirometric values. Spirometry: -FEV1/FVC: Normal @ 84% -FEV1: Normal @ 83% -FVC: Mildly reduced @ 73% Lung volumes by plethysmography: -RV: Reduced @ 70% -TLC: Mildly reduced @ 71% Diffusion capacity: -DLCO: Severe reduction @ 39% when corrected for Hb 12.5g/dL Flow-volume loop: -Mild restrictive pattern Prior PFT from 10/18/2023 and 04/27/2023: -TLC 72% and 72% respectively -DLCO: 42% and 50% respectively Impressions: -Mild restrictive pattern on spirometry confirmed with mildly decreased TLC. Severe diffusion impairment. Overall study is compatible with pulmonary fibrosis. When compared to prior studies, TLC is relatively unchanged, but there has been a decline in DLCO. Clinical correlation required. Electronically Signed On 05-02-2024 18:03:39 EST by Albin Sherman
== END 2024-05-02 12:59 | disposition home or self-care (01) ==
LOC: CARD 12:58
PROVIDERS: PCP Internal Medicine; Visit Provider Internal Medicine
DX: J84.10 Pulmonary fibrosis, unspecified (principal)
CPT/HCPCS: 71250; 94010; 94726; 94729

== ENCOUNTER 2025-01-22 10:39 | Outpatient (REF) | payer MEDICARE, SELFPAY ==
--- OUTSIDE RECORDS SUMMARY | 2023-09-28 09:45 | XMS_ITS ---
Author Organization [facility] es Address [address] [place] [address] Care Team Providers Care Air Dispatcher Name Role Phone Yris Eid Unavailable [phone] REASON FOR VISIT bh fu Encounters Encounter Location Date Provider Diagnosis [facility] [address] [address] 09/28/2023 Yris Eid Plan Of Treatment No Information Progress Notes * ALTON SALMERONDOB:1940 (84 yo F)Acc No.[id number]:09/28/2023 Behavioral Health Patient: Erik CRAWFORDALTON :?ANKITA Wang-SDOB:1940???Age:83 Y ???Sex:FemaleDate:4Phone:[phone]:[address] [place], [place] [id number] Subjective: * Chief Complaints: * B h fu Care Plan Details* * Electronic signature of ANKITA Del Angel on 01/22/2025 at 10:44 AM EST Sign off status: Pending * Provider: MIAH Vickers Date: 0 09/28/2023 Generated for Printing/Faxing/eTransmitting on:?01/22/2025 10:44 AM EST
--- OUTSIDE RECORDS SUMMARY | 2023-12-06 06:00 | XMS_ITS ---
Author Organization [facility] Servic es Address [address] [place] [address] Care Team Providers Care It Business Process Architect Name Role Phone Yris Eid Unavailable [phone] Encounters Encounter Location Date Provider Diagnosis [place] [address] [facility] [address] 12/06/2023 Yris Eid Plan Of Treatment No Information Progress Notes * ALTON SALMERONDOB:1940 (84 yo F)Acc No.[id number]:12/06/2023 Behavioral Health Patient: ALTON SEGURA :?ANKITA Wang-SDOB:1940???Age:83 Y ???Sex:FemaleDate:12/06/2023hone:[phone]:[address] [place], [place] [id number] Care Plan Details* * Electronic signature of ANKITA Del Angel on 01/22/2025 at 10:44 AM EST Sign off status: Pending * Provider: MIAH Vickers Date: 0 12/06/2023 Generated for Printing/Faxing/eTransmitting on:?01/22/2025 10:44 AM EST
--- OUTSIDE RECORDS SUMMARY | 2024-01-02 05:15 | XMS_ITS ---
Author Organization [facility] Servic es Address [address] [facility] [address] Care Team Providers Care Actimize Architect Name Role Phone Yris Eid Unavailable [phone] REASON FOR VISIT BH F/U Encounters Encounter Location Date Provider Diagnosis [facility] [address] [facility] [facility] [place] [address] 01/02/2024 Yris Eid Plan Of Treatment No Information Progress Notes * ALTON SALMERONDOB:1940 (84 yo F)Acc No.[id number]:01/02/2024 Behavioral Health Patient: Erik CRAWFORD ALTON :?AKNITA Wang-SDOB:1940???Age:83 Y ???Sex:FemaleDate:4Phone:[phone]:[address] [place], [place] [phone] Subjective: * Chief Complaints: * B H F/U Care Plan Details* * Electronic signature of ANKITA Del Angel on 01/22/2025 at 10:44 AM EST Sign off status: Pending * Provider: MIAH Vickers Date: Generated for Printing/Faxing/eTransmitting on:?01/22/2025 10:44 AM EST
--- OUTSIDE RECORDS SUMMARY | 2024-05-09 08:15 | XMS_ITS ---
Author Organization [facility] Address [address] [place] [address] [place] [address] Care Team Providers Care Asphalt Coater Name Role Phone Vandana Orourke Primary Care Provider UnavailLan Gao Unavailable [phone] Encounters Encounter Location Date Provider Diagnosis [address] [address] 05/09/2024 Lan Mcmahon Plan Of Treatment No Information Progress Notes * Shayy BARKER ADOB:[birth year] (84 yo F)Acc No.[id number]:05/09/2024 Patient:?Shayy BARKER :?DORI MurphyMDOB:1940???Age:83 Y???Sex: FemaleDate:05/09/2024Phone:[phone]:[facility]Zan:Vandana Orourke Subjective: * Chief Complaints: * * Medical History: Objective: * Vitals: Assessment: Plan: * Treatment: * Images: * Electronic signature of Lan Mcmahon DPM on 01/22/2025 at 10:45 AM ESTSign off status: Pending * Provider: Mitch Mcmahon DPM Date: 0 05/09/2024 Generated for Printing/Faxing/eTransmitting on:?01/22/2025 10:45 AM EST
--- OUTSIDE RECORDS SUMMARY | 2024-08-08 09:30 | XMS_ITS ---
Author Organization [facility] Address [address] [place] [address] [place] [address] Care Team Providers Care Veneer Redrier Name Role Phone Vandana Orourke Primary Care Provider UnavailLan Gao Unavailable [phone] Encounters Encounter Location Date Provider Diagnosis [address] [address] 08/08/2024 Lan Mcmahon Plan Of Treatment No Information Progress Notes * Shayy BARKER ADOB:[birth year] (84 yo F)Acc No.[id number]:08/08/2024 Patient:?Shayy BARKER :?DORI MurphyMDOB:1940???Age:84 Y???Sex: FemaleDate:08/08/2024Phone:[phone]:One [facility]Pdr:Vandana Orourke Subjective: * Chief Complaints: * * Medical History: Objective: * Vitals: Assessment: Plan: * Treatment: * Images: * Electronic signature of Lan Mcmahon DPM on 01/22/2025 at 10:44 AM ESTSign off status: Pending * Provider: Mitch Mcmahon DPM Date: 0 08/08/2024 Generated for Printing/Faxing/eTransmitting on:?01/22/2025 10:44 AM EST
--- OUTSIDE RECORDS SUMMARY | 2024-11-07 08:30 | XMS_ITS ---
Author Organization [facility] Address [address] [place] [address] [place] [address] Care Team Providers Care Nitroglycerin Distributor Name Role Phone Vandana Orourke Primary Care Provider UnavailLan Gao Unavailable [phone] Encounters Encounter Location Date Provider Diagnosis [address] [address] 11/07/2024 Lan Mcmahon Plan Of Treatment No Information Progress Notes * Shayy BARKER ADOB:[birth year] (84 yo F)Acc No.[id number]:11/07/2024 Patient:?Shayy BARKER :?DORI MurphyMDOB:1940???Age:84 Y???Sex: FemaleDate:11/07/2024Phone:[phone]:One [facility]Ipf:Vandana Orourke Subjective: * Chief Complaints: * * Medical History: Objective: * Vitals: Assessment: Plan: * Treatment: * Images: * Electronic signature of Lan Mcmahon DPM on 01/22/2025 at 10:44 AM ESTSign off status: Pending * Provider: Mitch Mcmahon DPM Date: 0 11/07/2024 Generated for Printing/Faxing/eTransmitting on:?01/22/2025 10:44 AM EST
--- OUTSIDE RECORDS SUMMARY | 2025-01-22 10:44 | XMS_ITS | Patient Health Record ---
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
--- OUTSIDE RECORDS SUMMARY | 2025-01-22 10:45 | XMS_ITS | Clinical Summary ---
Author Organization Exoss tem Address [id number] [address] [place] [address] Care Team Providers Care Tax Manager Cpa Name Role Phone William Rabago DO Primary Care Provider [phone] Allergies Active AllergyReactionsCriticalityNoted DateCommentsLatex, Natural Rubber 04/13/2016Hydrocodone-Jpytcdsyifucw53/31/2017 Medications MedicationSigDispense QuantityRefillsLast FilledStart DateEnd DateStatus aspirin 81 mg Take 81 mg by mouth daily.Active biotin (BIOTIN) 5 mg capsule Take 5 mg by mouth daily.Active warfarin (COUMADIN) 2 mg tablet Take 2 mg by mouth daily.Active VIT C/VIT E AC/LUT/COPPER/ZINC (PRESERVISION LUTEIN ORAL) Take by mouth.Active cholecalciferol, vitamin D3, (VITAMIN D3) 1,000 unit capsule Take by mouth daily.Active polyethylene glycol (GLYCOLAX) 17 gram packet Take 17 g by mouth daily.Active levothyroxine (SYNTHROID, LEVOTHROID) 75 MCG tablet Take 75 mcg by mouth daily.Active ketoconazole (NIZORAL) 2 % shampoo Apply 1 application topically 2 (two) times a week. Apply to damp skin, lather, leave on 5 minutes,and rinseActive DICLOFENAC SODIUM (VOLTAREN TOP) Apply topically.Active metoprolol tartrate (LOPRESSOR) 50 mg tablet Take 50 mg by mouth 2 (two) times a day.Active omeprazole (PriLOSEC) 40 mg capsule Take 40 mg by mouth daily.Active pravastatin (PRAVACHOL) 40 mg tablet Take 40 mg by mouth daily.Active venlafaxine (EFFEXOR) 75 mg tablet Take 75 mg by mouth 2 (two) times a day.Active metFORMIN (GLUCOPHAGE) 500 mg tablet Take 500 mg by mouth 2 (two) times a day with meals.Active Active Problems ProblemNoted DateDiagnosed DateUrinary kviyhubqhxav20/31/2017 Overview (04/13/2016): Urge incontinence improved with VESIcare 5 mg. Plan to switch to oxybutynin 5 mg b.i.d. for cost savings. Recommended caffeine elimination, timed voids Family History * Patient is adopted Medical HistoryRelationNameCommentsAlcohol abuseMotherCancerMothercervical and brainCancerSisterbreastDepressionSisterHypothyroidismSisterRelationNameStatus CommentsFatherDeceasedMotherDeceasedSister Social History Tobacco UseTypesPacks/DayYears UsedDateSmoking Tobacco: NeverChildcareAnswerDate SbvyszqiGznpzueunQbzfvyx21/12/2019EmploymentAnswerDate RecordedEmploymentUnknown 08/23/2018Purpose - LifeAnswerDate RecordedPurpose and direction in lifeUnknown 1CommentsUnknownSex and Gender InformationValueDate RecordedSex Assigned at BirthNot on fileLegal NpzTyupkg09/05/2015 5:13 PM EDTGender Identity Not on fileSexual OrientationNot on file Last Filed Vital Signs Vital SignReadingTime TakenCommentsBlood Ezinrpqy956/75004/13/2016 3:05 PM EST Rjnas1122/31/2017 3:05 PM ESTTemperature--Respiratory Rate--Oxygen Saturation-- Inhaled Oxygen Concentration--Hllroj273.7 kg (255 lb)04/13/2016 3:05 PM EST Nypmen174.6 cm (5' 6 )04/13/2016 3:05 PM ESTBody Mass Index41.16004/13/2016 3:05 PM EST Plan of Treatment Health MaintenanceDue DateLast DoneCommentsDepression Jvnjfihnf48/02/1954Tobacco Vlqgomjpj24/02/1954DTaP,Tdap and Td Vaccines (1 - Tdap)1960Zoster (Shingles) Vaccine (1 of 2)07/14/1991Fall Risk Halhqlcwq51/02/2007RSV ( or age 60+ yrs) (1 - 1-dose 75+ series)2016Influenza Cempyhf3211/12/2024 Medical Devices Not on file Insurance Care Teams Team MemberRelationshipSpecialtyStart DateEnd Date William Rabago DO [address] [place] [address] PCP - General04/13/16
--- OUTSIDE RECORDS SUMMARY | 2025-01-22 10:45 | XMS_ITS | Clinical Summary ---
Author Organization [facility] Address [address] [place] [address] Phone Care Team Providers Care Bioprocessing Manufacturing Technician Name Role Phone William Rabago DO Primary Care Provider Social History Tobacco UseTypesPacks/DayYears UsedDateSmoking Tobacco: Never Assessed CommentsUnknownSex and Gender InformationValueDate RecordedSex Assigned at Not on fileLegal DshFwgxzz41/26/2022 12:00 PM ESTGender IdentityNot on file Sexual OrientationNot on file Plan of Treatment Not on file Care Teams Team MemberRelationshipSpecialtyStart DateEnd Date William Rabago DO PCP - General08/12/17
--- OUTSIDE RECORDS SUMMARY | 2025-01-22 10:45 | XMS_ITS | Patient Health Record ---
Author Organization [facility] in [place] Address [address] [place] [address] Care Team Providers Care Protective Services Case Worker Name Role Phone Honey Rabago DO Primary Care Provider Unavail able Juani Martinez Unavailable [phone] Allergies Allergen (clinical drug ingredient) Drug/Non Drug Allergy documented on EMR Reaction Allergy Type Onset Date Status acetaminophen / hydrocodone HYDROcodone-Acetaminophen conv ulsions Drug Allergy ActivebupropionBupropionhallcinationsDrug AllergyActiveLatexLatexrashAllergy ActiverosuvastatinRosuvastatinUnknownDrug AllergyActive Results Component Value Reference Range Notes CT Chest High Resolution Reviewed date:05/07/2024 01:22:04 PM Interpretation: Performing Lab: Notes/Report: Troponin I High Sensitivity Reviewed date:03/18/2024 05:10:30 PM Interpretation: Performing Lab: Notes/Report: [facility] , Troponin I High Sensitivity 12.1 4.0-51.3 pg/m L PERCENTILE OF cTnI DISTRIBUTION IN A REFERENCE POPULATION, NOTE: HIGH-SENSITIVITY TROPONIN ASSAY IS NOT INTENDED TO BE UNIVERSAL DEFINITION OF MYOCARDIAL INFARCTION. THE UPPER WITH OTHER DIAGNOSTIC AND CLINICAL INFORMATION. HAS BEEN CONFIRMED THE DECISION THRESHOLD FOR WA 99TH PERCENTILE = 51.4 PG/ML CUT-OFF POINTS HAVE BEEN ESTABLISHED BASED ON THE FOURTH USED IN ISOLATION BUT SHOULD BE INTERPRETED IN CONJUNCTION REFERENCE LIMIT (URL) OF TROPONIN, DEFINED THE 99TH DIAGNOSIS. Performing Lab: see note ML - [facility] LBProthrombin Time INR Reviewed date:03/18/2024 05:10:30 PM Interpretation: Performing Lab: Notes/Report: [facility] ,Prothrombin Time18.49.0-11.6 secINR1.84 2.0-3.0 CONDITIONS NOT LISTED BELOW 2.5-3.5 RECURRENT THROMBOSIS 2.5-3.5 FOR PROSTHETIC HEART VALVE REPLACEMENT DESIRED INR: Performing Lab:see noteML - [facility] LBUA RANDOM W or MICROSCOPIC Reviewed date:03/18/2024 05:10:30 PM Interpretation: Performing Lab: Notes/Report: [facility] ,Color UrineLT. YELLOWYELLOWClarity UrineCLEARCLEARSpecific Xenia Urine1.020 1.005-1.025pH Urine6.05.0-9.0Protein UrineNEGATIVENEG/TRACE mg/dLGlucose Urine UANEGATIVENEGATIVE mg/dLBilirubin UrineNEGATIVENEGATIVEKetones UrineNEGATIVE NEGATIVE mg/dLBlood UrineNEGATIVENEGATIVENitrite UrineNEGATIVENEGATIVE Urobilinogen Urine0.20.2-1.0 EU/dLLeukocyte Esterase UrineNEGATIVENEGATIVEWBC Urine2-5NONE SEEN #/HPFRBC Urine0-20-2 #/HPFBacteria UrineMODERATENONE SEEN #/HPFMucus UrineSMALLNONE SEENSquamous Epithelial Cell UrineMODERATENONE/RARE #/LPFCrystals Seen?None SeenNone Seen #/HPFAmorphous Sediment UrineMODERATECast Seen?SEENNONE SEEN #/LPFHyaline Casts UrineFEWUrine Culture IndicatedYES Performing Lab:see noteML - [facility] LBTSH Reviewed date:03/18/2024 05:10:30 PM Interpretation: Performing Lab: Notes/Report: [facility] ,Thyroid Stimulating Hormone0.2770.358-3.740 uIU/mLPerforming Lab:see noteML - [facility] LBT4 Reviewed date:03/18/2024 05:10:29 PM Interpretation: Performing Lab: Notes/Report: [facility] ,T4 Thyroxine8.504.80-13.90 ug/dLPerforming Lab:see note - LBPROF CHEM 8 (BAS METB) Reviewed date:03/18/2024 05:10:29 PM Interpretation: Performing Lab: Notes/Report: [facility] ,Flyume770436-462 mmol/LPotassium3.93.5-5.1 mmol/BKimnfpuy22660-300 mmol/LCarbon Ckltjxn26.721.0-32.0 mmol/LAnion Gap11.1Weslgac4219-615 mg/dLBlood Urea Nitrogen 10.07.0-18.0 mg/dLCreatinine0.910.55-1.02 mg/dLEstimated GFR ( Trista>60 >=60 mL/min/1.73m 2Estimated GFR (Non- Ame59>=60 mL/min/1.73m 2BUN Creatinine Ratio11.6Fazhshy3.98.5-10.1 mg/dLPerforming Lab:see note - LBLIVER PROFILE Reviewed date:03/18/2024 05:10:29 PM Interpretation: Performing Lab: Notes/Report: [facility] ,Bilirubin Total0.80.2-1.0 mg/dLBilirubin Direct0.20.0-0.2 mg/dLAspartate Amino Oalftpcwjil0363-55 U/LAlanine Mfmsuwvhovkajfbe024-04 U/LAlkaline Mjgpsfifqay971 46-116 U/LTotal Protein7.36.4-8.2 g/dLAlbumin Level3.03.4-5.0 g/dLGlobulin4.3 Albumin Globulin Ratio0.7Performing Lab:see note - LBCBC AUTO DIFF Reviewed date:03/18/2024 05:10:29 PM Interpretation: Performing Lab: Notes/Report: [facility] ,White Blood Count6.44.0-11.0 10 3/uLRed Blood Count4.034.20-5.40 10 6/uL Avqzpwubxj16.912.0-16.0 g/lJGeoqkzkovd98.936.0-48.0 %Mean Corpuscular Thzyln58.5 81.0-99.0 fLMean Corpuscular Kgddvlghmn43.526.7-34.0 pgMean Corpuscular HGB Conc 30.629.9-35.2 g/dLRed Cell Distribution Width16.111.0-15.0 %Platelet Mzodi419 150-450 10 3/uLMean Platelet Euzvxz46.39.5-13.5 fLNeutrophils Percent Auto67.5 43.0-75.0 %Lymphocytes Percent Auto20.520.5-60.0 %Monocytes Percent Auto11.21.7- 12.0 %Eosinophils Percent Auto0.20.9-7.0 %Basophils Percent Auto0.30.2-2.0 % Immature Granulocytes Pct Auto0.30.0-0.5 %Neutrophils Absolute Auto4.41.4-6.5 10 3/uLLymphocytes Absolute Auto1.31.2-3.8 10 3/uLMonocytes Absolute Auto0.70.3-0.8 10 3/uLEosinophils Absolute Auto0.00.0-0.7 10 3/uLBasophils Absolute Auto0.00.0- 0.1 10 3/uLImmature Granulocytes Abs Auto0.020.00-0.03 10 3/uLPerforming Lab:see note - LBBNP Reviewed date:03/18/2024 05:10:29 PM Interpretation: Performing Lab: Notes/Report: [facility] ,NT Pro B Type Natriuretic Vpva3003.0<=1800.0 pg/mLRESULTS CALLED TO JENNIFER MANNINGerforming Lab:see [facility] LBProthrombin Time INR Reviewed date:03/18/2024 05:10:29 PM Interpretation: Performing Lab: Notes/Report: [facility] ,Prothrombin Time25.49.0-11.6 secINR2.64 2.5-3.5 FOR PROSTHETIC HEART VALVE REPLACEMENT 2.0-3.0 CONDITIONS NOT LISTED BELOW DESIRED INR: 2.5-3.5 RECURRENT THROMBOSIS Performing Lab:see [facility] - LBCBC AUTO DIFF Reviewed date:03/18/2024 05:10:29 PM Interpretation: Performing Lab: Notes/Report: [facility] ,White Blood Count6.74.0-11.0 10 3/uLRed Blood Count4.144.20-5.40 10 6/uL Idmrnpxrii70.512.0-16.0 g/xABmlztfabfw83.236.0-48.0 %Mean Corpuscular Fkpinv99.7 81.0-99.0 fLMean Corpuscular Zkiekrbrsr19.226.7-34.0 pgMean Corpuscular HGB Conc 31.929.9-35.2 g/dLRed Cell Distribution Width15.511.0-15.0 %Platelet Vkvvt754 150-450 10 3/uLMean Platelet Lrvjtq46.09.5-13.5 fLNeutrophils Percent Auto73.1 43.0-75.0 %Lymphocytes Percent Auto18.320.5-60.0 %Monocytes Percent Auto8.11.7- 12.0 %Eosinophils Percent Auto0.00.9-7.0 %Basophils Percent Auto0.20.2-2.0 % Immature Granulocytes Pct Auto0.30.0-0.5 %Neutrophils Absolute Auto4.91.4-6.5 10 3/uLLymphocytes Absolute Auto1.21.2-3.8 10 3/uLMonocytes Absolute Auto0.50.3-0.8 10 3/uLEosinophils Absolute Auto0.00.0-0.7 10 3/uLBasophils Absolute Auto0.00.0- 0.1 10 3/uLImmature Granulocytes Abs Auto0.020.00-0.03 10 3/uLPerforming Lab:see note - LBBox Test Reviewed date:03/22/2024 12:47:24 PM Interpretation: Performing Lab: Notes/Report: Urine culture ,BOX Test Sent OutUrine cultureBOX Test Reference LabFirelandsBOX Test Date Sent 03/16/24BOX Test ResultSEE SCANNED REPORTPerforming Lab:see note - LBCT chest high res Reviewed date:05/08/2024 07:09:10 AM Interpretation: Performing Lab: Notes/Report: Source Facility: [facility]-[address] [place] [address] [place] [address] CT Scan Report Signed Patient: SHAYY BARKER MR#: [id number] : 1940 Acct:[id number] Age/Sex: 83 / F ADM Date: 05/02/24 Loc: CARD Attending Dr: Juani Martinez D.O. Ordering Physician: Juani Martinez D.O. Date of Service: 05/02/24 Procedure(s): CT chest high res Accession Number(s): [id number] cc: HONEY RABAGO [place] [address] Patient Name: SHAYY BARKER MRN: [id number] date: 1940 Sex: F Assigned Patient Location: CARD Current Patient Location: Accession/Order Number: [id number] Exam Date: 05/03/2024 10:42 Report Date: 05/03/2024 10:53 At the request of: JUANI MARTINEZ DO Procedure: CT chest high res HIGH-RESOLUTION CT CHEST WITHOUT CONTRAST COMPARISON: 10/18/2023 CLINICAL DATA: Follow-up pulmonary fibrosis. Spiral axial unenhanced images were obtained to the chest. Images were reconstructed at 1 mm sections at 10 mm increments. Patient was also scanned in prone position with high-resolution technique. Images were reviewed using both narrow and wide window settings. This CT exam was performed using one or more following dose reduction techniques: Automated exposure control, adjustment of the mA and/or kV according to patient size, or use of iterative reconstruction technique. The heart is normal size. No pericardial effusion is seen. Coronary artery disease is noted. No aortic aneurysm is present. There is atherosclerotic plaque involving the aorta and proximal great vessels. There are hemostasis clips at the lower neck on the left. There are similar mediastinal lymph nodes. No developing lymphadenopathy is identified. The bony thorax, as visualized shows no acute findings. Subpleural lines and interstitial thickening are again seen, greater at the bases. There is no developing consolidation, pleural effusion or pneumothorax. Limited imaging through the upper abdomen shows a tiny hiatal hernia. There are no other contributory findings. CT/CT chest high res IMPRESSION: SIMILAR INTERSTITIAL DISEASE. NO OTHER ACUTE FINDINGS. Impression dictated by: Carrie Miguel M.D.05/03/2024 10:53 AM Dictation Location: [place] [address] Electronically authenticated by: [id number] Y Date: 05/03/2024 10:53 Dictated By: Carrie Miguel M.D. Signed By: 05/03/24 1238 DD/ 1053 TD/TT: Electric Fan Assembler:RT pulmonary function test Reviewed date:05/08/2024 07:10:04 AM Interpretation: Performing Lab: Notes/Report: Source Facility: [facility]-[address] [place] [address] [place] [address] Respiratory Report Signed Patient: SHAYY BARKER MR#: [id number] : 1940 Acct:[id number] Age/Sex: 83 / F ADM Date: 05/02/24 Loc: CARD Attending Dr: Juani Martinez D.O. Ordering Physician: Juani Martinez D.O. Date of Service: 05/02/24 Procedure(s): RT pulmonary function test Accession Number(s): [id number] cc: [facility] Test Date: 2024-05-02 Pat Name: SHAYY BARKER Department: Room: - Gender: Female Gas Cutter: Chery Morrison RRT : 1940 Requested By: Juani Martinez Order Number: [id number] Reading MD: Juani Martinez Interpretive Statements Pulmonary function testing was completed according to ATS criteria. Findings were considered accurate and reproducible. No bronchodilator was administered due to normal spirometric values. Spirometry: -FEV1/FVC: Normal @ 84% -FEV1: Normal @ 83% -FVC: Mildly reduced @ 73% Lung volumes by plethysmography: -RV: Reduced @ 70% -TLC: Mildly reduced @ 71% Diffusion capacity: -DLCO: Severe reduction @ 39% when corrected for Hb 12.5g/dL Flow-volume loop: -Mild restrictive pattern Prior PFT from 10/18/2023 and 04/27/2023: -TLC 72% and 72% respectively -DLCO: 42% and 50% respectively Impressions: -Mild restrictive pattern on spirometry confirmed with mildly decreased TLC. Severe diffusion impairment. Overall study is compatible with pulmonary fibrosis. When compared to prior studies, TLC is relatively unchanged, but there has been a decline in DLCO. Clinical correlation required. Electronically Signed On 05-02-2024 18:03:39 EST by Juani Martinez Dictated By: Juani Martinez D.O. Signed By: 05/02/24 5784 DD/ 1309 TD/TT: Electric Fan Assembler: Reason For Referral No Information Medications Medication SIG (Take, Route, Frequency, Duration) Notes Start Date End Date Status Carbidopa-Levodopa 25-100 MG Oral; Duration: 90 Days ActiveVenlafaxine HCl ER 75 MG1 tablet with food Orally Once a dayActive Estradiol 0.1 MG/GMVaginal; Duration: 23 DaysActiveAspirin 81 MG1 tablet Orally Once a dayActivePreserVision AREDS 2 -as directed OrallyActiveAtorvastatin Calcium 40 MGtake 1 tablet by mouth once daily - AT THE SAME TIME Oral; Duration: 90 DaysActiveRA Pain Relief Acetaminophen 500 MGtake 2 tablets by mouth every morning Oral; Duration: 30 DaysActiveMirtazapine 7.5 MGtake 1 tablet by mouth at bedtime Oral; Duration: 90 DaysActiveOmeprazole 20 MGOral; Duration: 90 DaysActiveMetoprolol Tartrate 50 MGOral; Duration: 45 DaysActiveWarfarin Sodium 2 MGtake 1 tablet by mouth once daily EXCEPT TUESDAY (ON TUESDAY TAKE WARFARIN 4MG) Oral; Duration: 90 DaysActiveMetoprolol Tartrate 25 MG1 tablet with food Orally Twice a dayActiveLevothyroxine Sodium 75 MCGOral; Duration: 90 DaysActiveVitamin D3 125 MCG (5000 UT)1 tablet Orally Once a dayActivemetFORMIN HCl 500 MGtake 1 tablet by mouth twice a day - MORNING AND BEDTIME Oral; Duration: 45 DaysActiveWarfarin Sodium 4 MG1 tablet Orally Once a dayActive Venlafaxine HCl ER 150 MGOral; Duration: 90 DaysActiveJanuvia 50 MGtake 1 tablet by mouth every morning Oral; Duration: 30 DaysActiveVitamin B12 1000 MCG1 tablet Orally Once a dayActive Immunizations Vaccine Route Administration Date Status Comme nts Flu, Fluad (98727) 65 yrs + Trivalent (3425-9407) Unknown 01/18/2024 Administered Flu, Fluad (59549) 65 yrs+, single-dose syringe (9716-6055)Ittgovm4412/15/2022 AdministeredPneumococcal (Prevnar 20)Inippbg26/06/6407KdbbyojwufmcXMWH-DBQ-5 (COVID 19 Moderna - Booster 0.25mL)Exlbsob57/09/2021Administered Social History Tobacco Use: Social History Observation Description Date Details (start date - stop date) Never Smoker NA - NA Tobacco Control (Standard) Question Answer Notes Tobacco use: Nonsmoker Problems Problem Type SNOMED Code ICD Code Onset Dates Problem Status W/U Status Risk Notes Problem Morbid obesity (disorder) (33530 6002) Morbid (severe) obesity due to excess calories (E66.01) ActiveconfirmedProblemBronchiolectasis (51266800)Bronchiectasis, uncomplicated (J47.9)ActiveconfirmedProblemPulmonary fibrosis (29269645)Pulmonary fibrosis (J84.10)ActiveconfirmedProblemDiabetes mellitus type 2 (disorder) (46826348)DM2 (diabetes mellitus, type 2) (E11.9)ActiveconfirmedProblemParkinson's disease (disorder) (13284601)Parkinson's disease without dyskinesia, without mention of fluctuations (G20.A1)Activeconfirmed Vital Signs Heart Rate 84 /min 05/08/2024 Weight reported by patient. Temperature 96.7 degrees Fahrenheit 05/08/2024 Weig ht reported by patient. Respiratory Rate 18 /min 05/08/2024 Weight repo rted by patient. Oximetry 97 % 05/08/2024 Weight reported by patient. Blood pressure diastolic 83 mm Hg 05/08/2024 Waqar ght reported by patient. Height 63 in 05/08/2024 Weight reported by patient. Blood pressure systolic 130 mm Hg 05/08/2024 Weig ht reported by patient. Weight 240.0 lbs 05/08/2024 Weight reported by patient. BMI 42.51 kg/m2 05/08/2024 Weight reported by patient. Encounters Encounter Location Date Provider Diagnosis [facility] [address] [place] [address] 05/08/2024 [facility] Pulmonary fibrosis J84.10 ; Bronchiectasis, uncomplicated J47.9 ; Parkinson's disease without dyskinesia, without mention of fluctuations G20.A1 ; DM2 (diabetes mellitus, type 2) E11.9 and Morbid (severe) obesity due to excess calories E66.01 [facility] [address] [place] [address] 11/05/2024 [facility] Assessments Encounter Date Diagnosis (ICD Code) Assessment Notes Treatment Notes Treatment Clinical Notes Section Notes 05/08/2024 Bronchiectasis, uncomplicated (I CD-10 - J47.9) Incidental finding in RLL...traction bronchiectasis vs. secondary to aspiration? 05/08/2024Pulmonary fibrosis (ICD-10 - J84.10) Pulmonary fibrosis has not grossly changed on F/U HRCT 05/02/2024 - no classic honeycombing. However, there has been a trend towards worsening DLCO over the past year. Unclear if these values are within the standard deviation for this patient, vs. actual decline which suggests microscopic changes not visualized on HRCT. Her breathing does not appear labored today, unlike last visit. She also is not complaining of any pleurisy today. I once again reviewed the following options with the patient & her son: -Do nothing -Repeat PFT and HRCT in 6-12 months -Order rheumatological labs -Referral to thoracic surgeon for open lung biopsy (most invasive option) -Trial on prednisone (which could adversely affect her DM2) to see if symptoms improve The patient stated she wants to at least monitor the fibrosis, so she decided to repeat PFT & HRCT in 1 year. These tests have been ordered and are to be done prior to next visit. She was instructed to contact me sooner if her symptoms worsen, or if she changes her mind and wants another option. 05/08/2024Parkinson's disease without dyskinesia, without mention of fluctuations (ICD-10 - G20.A1) Worsening? Question chronic aspiration. 05/08/2024DM2 (diabetes mellitus, type 2) (ICD-10 - E11.9) Empirically treating the fibrosis with prednisone most likely would exacerbate hyperglycemia, whichhas been an issue with this patient in the recent past. 05/08/2024Morbid (severe) obesity due to excess calories (ICD-10 - E66.01) Patient's weight is inducing a restrictive pulmonary physiology. Weight loss indicated: Decrease calories, increase activity. Plan Of Treatment No Information Insurance Providers Payer Name Payer Address Payer Phone Subscriber Number Group Number Insured Name Patient Relationship to Insured Coverage Start Date Coverage End Date [employer] ADV PLAN [address] [address] [place] [id number] Braulio Barker - patient is the insured Medical (General) History Medical History History ICD Code Pulmonary fibrosis J84.10 DM2 (diabetes mellitus, type 2) E11.9 HLD (hyperlipidemia) E78.5 Vitamin D deficiency E55.9 Parkinson's disease without dyskinesia, without mention of fluctuations G20.A1 GERMANIA (obstructive sleep apnea) G47.33 CAD (coronary artery disease) I25.10 OA (osteoarthritis) M19.90 Macular degeneration of both eyes H35.30 GERD (gastroesophageal reflux disease) K 21.9 Seborrheic dermatitis L21.9 History of DVT (deep vein thrombosis) Z8 6.718 Surgical History Surgery Date(Month/Year) cyst removal-thyroid tonsillectomy and adenoidectomycholecystectomyappendectomyright knee arthroscopy
--- OUTSIDE RECORDS SUMMARY | 2025-01-22 10:45 | XMS_ITS | Clinical Summary ---
Author Organization [facility] Address [address] [place] [address] Care Team Providers Care Telephone Mechanic Name Role Phone William Rabago Primary Care Provider Allergies Active AllergyReactionsCriticalityNoted DateCommentsAripiprazole Contraindication-Medical Yndfolvl65/29/2024 People with Parkinson's disease should not take this or other antipsychotics except Nuplazid, Seroquel, and Clozaril can be prescribed. Adhesive Tape (Rosins)Rash01/12/2021upropionMental Status Zjhcgv0901/18/2017 hallucinations ProchlorperazineContraindication-Medical Mvrwvkwy33/29/2024 This should not be given to people with Parkinson's disease. If not otherwise contraindicated, Zofran should be given instead. HaloperidolContraindication-Medical Qcdxmupv60/29/2024 People with Parkinson's disease should not take this or other antipsychotics except Nuplazid, Seroquel, and Clozaril can be prescribed. Hydrocodone-AcetaminophenMental Status ZepntzCwosxx17/31/2017Latex, Natural XqqsjpCbmb08/31/2017PromethazineContraindication-Medical Owwnkany69/29/2024 This should not be given to people with Parkinson's disease. If not otherwise contraindicated, Zofran should be given instead. MetoclopramideContraindication-Medical Sbcnkmvf20/29/2024 This should not be given to people with Parkinson's disease. Rosuvastatin RnpoiirErsjrws78/01/2021 Medications MedicationSigDispense QuantityRefillsLast FilledStart DateEnd DateStatus cholecalciferol (VITAMIN D3) 5,000 unit tab Take by mouth once daily.Active warfarin (COUMADIN) 2 mg tablet 1 tablet once daily. Active levothyroxine (SYNTHROID) 75 mcg tablet once daily.12/29/2017Active omeprazole (PRILOSEC) 20 mg capsule 20 mg once daily. 02/08/2018Active vit C/vit E ac/lut/copper/zinc (PRESERVISION LUTEIN ORAL) Take by mouth twice daily.Active atorvastatin (LIPITOR) 40 mg tablet Take 40 mg by mouth once daily.Active Mirtazapine (REMERON) 7.5 mg tablet Take 7.5 mg by mouth daily at bedtime.01/25/2022ctive metoprolol tartrate, short acting, (LOPRESSOR) 50 mg tablet TAKE 1 & 1/2 (ONE & ONE-HALF) TABLETS BY MOUTH TWICE DAILY WITH FOOD01/13/2022 Active WebstepSTYLE VIVIAN 2 SENSOR kit apply 1 SENSOR to back OF UPPER ARM REMOVE AND REPLACE every 14 days01/25/2022 Active metFORMIN (GLUCOPHAGE) 500 mg tablet Take 1 tablet by mouth once daily.02/12/2022ctive Additional Information Patient taking differently:500 mg ORAL2 TIMES DAILY W/MEALS, Reason: Dosage Adjustment, Reported on 06/22/2023 cyanocobalamin (VITAMIN B-12) 500 mcg tablet Take 2 tablets by mouth once daily.02/15/2022ctive metoprolol tartrate, short acting, (LOPRESSOR) 25 mg tablet Take 25 mg by mouth twice daily.Active polyethylene glycol 3350 17 gram packet Take 17 g by mouth once daily. Dissolve dose in 4 - 8 ounces of liquid and take as directed.Active ketoconazole (NIZORAL) 2 % shampoo Apply to affected area two times a week.Active Fluocinolone-Shower Cap 0.01 % oil by scalp route.Active diclofenac (VOLTAREN) 1 % topical gel 05/08/2022ctive warfarin (COUMADIN) 4 mg tablet 06/15/2022ctive estradiol (ESTRACE) 0.01 % (0.1 mg/gram) vaginal cream Use vaginally one time a week.Active venlafaxine (EFFEXOR) 75 mg tablet 01/10/2023ctive carbidopa-levodopa (SINEMET 25-100) 25-100 mg per tablet Indications:Parkinson's disease (HCC)Take 1.5 tablets by mouth three times a day. 405 tablet ctive venlafaxine ER (EFFEXOR XR) 150 mg 24 hr capsule Take 150 mg by mouth every morning.05/01/2023ctive aspirin, enteric coated (ASPIRIN, ENTERIC COATED) 81 mg EC tablet Take 81 mg by mouth.11/17/2023ctive MOUNJARO 7.5 mg/0.5 mL pen injector Inject 7.5 mg subcutaneously.02/21/2024ctive Cephalexin 500 mg tab Take 500 mg by mouth three times a day.Active lidocaine HCL 4 % ptmd Apply to affected area once daily.Active Active Problems ProblemNoted DateDiagnosed DatePulmonary neuvoofd89/11/2024epression with drursls7101/20/2023Obesity, Class I, BMI 30-34.9007/08/2022arkinson's disease without dyskinesia, with fluctuating uxbxafrqdabrch86/20/2018OSTEOARTHROS KNEE 06/29/2012 Family History RelationStatusCommentsFatherDeceasedMotherDeceased Social History Tobacco UseTypesPacks/DayYears UsedDateSmoking Tobacco: FormerSmokeless Tobacco: Never Tobacco Cessation:Counseling Given: Not Answered PHQ-2AnswerDate RecordedPHQ-2 biljx16304/26/2023rea Deprivation IndexAnswerDate RecordedNational Score (1-100), lower number is lower uzak290001/20/2023State Score (1-10), lower number is lower exhl1833Data from: https://www.neighborhoodatlas.medicine.[facility].edu/. Last address used for hpkcxdunaer[address] [facility] [address]/20/2023CommentsNoSex and Gender InformationValueDate RecordedSex Assigned at OxryjOkgrgl23/14/2020 7:29 PM EDT Legal SahVfvrix95/02/2012 9:45 AM ESTGender SzyrgbbtNughrc59/14/2020 7:29 PM EDT Sexual PknnhhmygjdVwrzkczc04/14/2020 7:29 PM EDT Last Filed Vital Signs Vital SignReadingTime TakenCommentsBlood Gwotemsu727/7608/ 1:24 PM EDT Gtyvl838910/25/2023 1:24 PM EDTTemperature--Respiratory Muib6664 1:03 PM EDTOxygen Ckmpozqoxc18%10/25/2023 1:24 PM EDTInhaled Oxygen Concentration-- Qsoojm383 kg (247 lb)10/25/2023 1:24 PM EDTPer pt. Did not get weighedHeight 167.6 cm (5' 6 )10/25/2023 1:24 PM EDTBody Mass Index39.8710/25/2023 1:24 PM EDT Plan of Treatment DateTypeDepartmentCare Team (Latest Contact Info)Qlfhemzxrgf54/12/2026 3:00 PM ESTOffice Visit Neurology [address] [phone] Gloria Perez, CATERER'S AIDE.MODEL ENGINE MECHANIC [address] [place] [address] Annual follow upHealth MaintenanceDue DateLast DoneCommentsShingrix Vaccine (1 of 2)07/14/1991DTaP,Tdap,Td Vaccine (1 - Tdap)RSV Vaccine (1 - 1-dose 75+ series)2016Advance Directive Cwwnjxdidw33/01/2025Medicare Advantage Annual Wellness Visit03/14/2024ovid-19 Vaccine ( season) 511/11/2020, 05/13/2020, 04/15/2020Influenza Vaccine (#1)2024 01/18/2024, 12/15/2022, 01/25/2022, Additional history existsDiabetes Screening 712/12/2023, 07/29/2023, 4Bone Density ScreeningCompleted 2Pneumococcal Vaccine: 50+Swwvgghse17/06/2024, 11/15/2023, 10/02/2014, Additional history exists Insurance * Guarantor: Shayy Barker AAc TypeRelation to PatientDate of BirthPhone Billing AddressPersonal/RihlhmWzip96[birth year][address] [address] Care Teams Team MemberRelationshipSpecialtyStart DateEnd Date William Rabago DO [address] [facility] [address] [place] [address] PCP - Eokidrr55/6/05
--- OUTSIDE RECORDS SUMMARY | 2025-01-22 10:45 | XMS_ITS | Clinical Summary ---
Author Organization [facility] Address [address] [place] [address] Care Team Providers Care Technical Solutions Consultant Name Role Phone Albin Sherman DO Unavailable Vandana Orourke MD Primary Care Provider [phone] William Rabago DO Unavailable [phone] Allergies Active AllergyReactionsCriticalityNoted ItvyVwfzydxqZutuwuxroyms92/04/2024 YzfqmrctzCbwiv55/07/2017 hallucinations Other Reaction(s): Hallucinating WxrsqjtuwziVwewrhx64/01/2021 Other Reaction(s): Unknown Reaction Hydrocodone-QehpcmegubqivNopiwIekvvf91/31/2742HlhpyQqzwTjs12/31/2017OtherRashLow 7799EgvajjozlbrrGvldrtz15/01/2021 Medications MedicationSigDispense QuantityRefillsLast FilledStart DateEnd DateStatus cholecalciferol (Vitamin D-3) 50 MCG (1999) capsule 1 capsule 1 (one) time each day at the same timeActive polyethylene glycol, PEG, 3350 (MiraLax) 17 GM/SCOOP powder 1 (one) time each day at the same timeActive Multiple Vitamins-Minerals (PRESERVISION AREDS 2 PO) Take by mouth in the morning and before bedtime.Active cyanocobalamin (Vitamin B-12) 1000 MCG tablet Take 1,000 mcg by mouth DailyActive biotin 5 MG capsule Take 5 mg by mouth in the morning.Active diclofenac sodium 1 % gel Apply 2 g oebmthnuc39/25/2023ctive Capsaicin-Cleansing Gel (Qutenza, 4 Patch,) 8 % patch Indications:Type II diabetes mellitus with neurological manifestations (HCC) Apply 1 patch topically every 3 (three) months Follow instructions to prepare site. Prescriber to missy area. Once applied, remove after 30 minutes and clean area with supplied gel. 1 patch ctive aspirin 81 MG EC tablet Indications:Hypertension, unspecified typeTake 1 tablet (81 mg) by mouth Daily 100 tablet ctive levothyroxine (Synthroid, Levoxyl) 75 MCG tablet Indications:Hypothyroidism, unspecified typeTake 1 tablet (75 mcg) by mouth in the morning. Take on an empty stomach.. 90 tablet ctive metFORMIN (Glucophage) 500 MG tablet Indications:Type 2 diabetes mellitus with other specified complication, unspecified whether long-term insulin use (HCC)Take 1 tablet (500 mg) by mouth in the morning and 1 tablet (500 mg) before bedtime. 180 tablet ctive metoprolol tartrate (Lopressor) 50 MG tablet Indications:Hypertension, unspecified typeTake 1.5 tablets (75 mg) by mouth every 12 (twelve) hours 270 tablet ctive mirtazapine (Remeron) 7.5 MG tablet Indications:AnxietyTake 1 tablet (7.5 mg) by mouth at bedtime 90 tablet ctive venlafaxine (Effexor) 75 MG tablet Indications:Recurrent major depression in full remissionTake 1 tablet (75 mg) by mouth Daily 90 tablet ctive venlafaxine XR (Effexor XR) 150 MG 24 hr capsule Indications:Recurrent major depression in full remissionTake 1 capsule (150 mg) by mouth in the morning. 90 capsule ctive warfarin (Coumadin) 2 MG tablet Indications:History of DVT (deep vein thrombosis)take 1 tablet by mouth once daily EXCEPT TUESDAY (ON TUESDAY TAKE WARFARIN 4MG) 90 tablet ctive omeprazole (PriLOSEC) [address] capsule Indications:Gastroesophageal reflux disease without esophagitisTake 1 capsule (20 mg) by mouth 1 (one) time each day at the same time 90 capsule ctive Continuous Glucose Sensor (FreeStyle Andrea 2 Sensor) [facility] Indications:Type 2 diabetes mellitus with other specified complication, unspecified whether intermediate manager insulin use (HCC)1 each by Other route Every 10 (ten) days 9 each ctive carbidopa-levodopa (Sinemet) 25-100 MG tablet Indications:Parkinson's disease without dyskinesia or fluctuating manifestations (HCC)Take 1.5 tablets by mouth in the morning. Then 1 tablet TID. 135 tablet 4Active warfarin (Coumadin) 3 MG tablet Indications:History of DVT (deep vein thrombosis)Take as directed per weekly INR report 90 tablet 5Active Tirzepatide (Mounjaro) 7.5 MG/0.5ML solution auto-injector Indications:Type 2 diabetes mellitus with other specified complication, without long-term current use of insulin (HCC)Inject 7.5 mg under the skin 1 (one) time per week 6 mL ctive atorvastatin (Lipitor) 40 MG tablet Indications:Mixed hyperlipidemiaTake 1 tablet (40 mg) by mouth 1 (one) time each day at the same time 90 tablet 5Active ketoconazole (NIZOral) 2 % shampoo Indications:Other seborrheic dermatitisLather on scalp 2-3 x weekly, leave on 5 min before rinsing 120 mL 1105Active Active Problems ProblemNoted DateDiagnosed KlqiIyzagbqden08/23/2024Memory loss12/05/2023OSA (obstructive sleep apnea)08/16/20232939Bduehcsswqp83/04/0815Hlbjfhw15/04/2024 Inadequate sleep osfddso7808/16/2023ulmonary wpsuatro63/01/2024 Overview (04/14/2023): 2023-04-[address]- Mild Atrophic srpnxwofa11/09/2023oronary atherosclerosis of [facility] coronary artery 12/20/2022iabetic gosyhfmizv39/09/2023Macular degeneration (senile) of retina 12/20/2022Osteoarthritis involving multiple joints on both sides of body 12/20/20228626Gsrigrpjcsgd69/09/2023Recurrent major depression in full remission 12/20/2022Need for vaccination with 20-polyvalent pneumococcal conjugate vaccine 12/20/2022Type 2 diabetes mellitus with other specified gmnzuczosfwc77/09/2023 Genitourinary syndrome of uuqbocfjl89/09/2023Frequent UTI12/20/2022Episodic paroxysmal hemicrania, not aehvvapmqbm14/09/2023nticoagulated on Coumadin 12/20/2022iabetic peripheral neuropathy associated with type 2 diabetes pajzlvtr93/19/1816Kuachyn97/22/2021leep apnea05/21/2020Morbid jhaoper2110/31/2017 Urge rugbfrujkfzj91/26/2018Chronic venous eujqhweewpnjp74/03/2018 Gastroesophageal reflux disease without utxsipixijr33/21/2017Long term current use of anticoagulant ugqzqrx9411/01/2016Parkinson's hwzezce4011/01/2016Mild cognitive bglrfbvcan66/13/2017History of renal tcjinup3312/25/2015History of DVT (deep vein thrombosis)01/29/2015PVD (peripheral vascular disease)12/20/2014Mixed /06/2015Benign neoplasm of cerebral pgqhbiec64/05/2015 Hypothyroidism, axvejiodnxo15/05/2015Vitamin D /05/2015 Resolved Problems ProblemNoted DateDiagnosed DateResolved DateCirculating anticoagulant disorder ([facility])Recurrent fallsIncontinence of fecesEsophageal Immunizations ImmunizationAdministration DatesNext DueInfluenza, High Dose Seasonal, Preservative Free01/25/2022,12/03/2020,02/05/2019,02/10/2018,12/25/2015, 11/28/2013Influenza, Seasonal, Quadrivalent, Tfzyjlebqd80/04/2023Influenza, injectable, quadrivalent, preservative free05/03/2017Influenza, seasonal, injectable, preservative free12/17/2014Influenza, seasonal, intradermal, preservative free01/13/2012,01/09/2010,12/16/2008Influenza, trivalent, rstnanynzd27/06/2024,12/24/2019Pneumococcal Conjugate PCV 1307 Pneumococcal Conjugate PCV ,4Pneumococcal Polysaccharide AMDK7688/TD (adult), 2 Lf tetanus toxoid, preservative free, adsorbed 07/22/2009 Family History Medical HistoryRelationNameCommentsBrain cancerMotherCervical cancerMother DiabetesSiblingThyroid diseaseSiblingRelationNameStatusCommentsFatherDeceased MotherDeceasedSiblingAlive Social History Tobacco UseTypesPacks/DayYears UsedDateSmoking Tobacco: NeverSmokeless Tobacco: Never Tobacco Cessation:Counseling Given: Not Answered Alcohol UseStandard Drinks/WeekCommentsNever0 (1 standard drink = 0.6 oz pure alcohol)caffeine: coffee 1-2 cups a dayAUDIT-CAnswerDate RecordedQ1: How often do you have a drink containing alcohol?Never03/28/2023Q2: How many drinks containing alcohol do you have on a typical day when you are drinking?Patient does not drink03/28/2023Q3: How often do you have six or more drinks on one occasion?Never03/28/2023HQ-2AnswerDate RecordedPatient Health Questionnaire-2 Ahjfk926CommentsUnknownSex and Gender InformationValueDate RecordedSex Assigned at BirthNot on fileLegal XogWjzupa48/15/2023 7:22 PM EDT Gender IdentityNot on fileSexual OrientationNot on file Last Filed Vital Signs Vital SignReadingTime TakenCommentsBlood Jhsstpzh773/7002/21/2024 1:08 PM EST Azdsq306502/21/2024 1:08 PM ESTTemperature--Respiratory Rate--Oxygen Iqkussebub98% 02/21/2024 1:08 PM ESTInhaled Oxygen Concentration--Mtmimt142 kg (227 lb) 02/21/2024 1:08 PM UTPIkrnis504.6 cm (5' 6 )12/05/2023 1:39 PM EDTBody Mass Index36.6409 1:39 PM EDT Plan of Treatment DateTypeDepartmentCare Team (Latest Contact Info)Zcvkiigtcck29/15/2026 1:05 PM EDTOffice Visit [facility] [address] [place] [phone] Nicol Aponte MD [address] [place] [address] Health MaintenanceDue DateLast DoneCommentsCOVID-19 Vaccine (3 - Moderna risk series)111/11/2020, 05/13/2020, 1Diabetes: Urine Protein Epausdyzx86, 07/28/2020, 07/18/2019, Additional history exists Diabetes: Retinopathy Egiukgeyc55/01/2022, 10/06/2021, 07/24/2021, Additional history existsDiabetes: Hemoglobin A1C512/12/2023, 11/15/2023, 07/29/2023, Additional history existsInfluenza Vaccine (#1) 511/08/2023, 12/15/2022, 01/25/2022, Additional history exists Pneumococcal Vaccine: 65+ XyefuPehandbzn98/06/2024, 11/15/2023, 10/02/2014, Additional history exists Procedures Procedure NamePriorityDate/TimeAssociated DiagnosisCommentsPOCT GLYCATED HEMOGLOBIN, MVBVZHkeulzt72/10/2024 1:19 PM EST Type 2 diabetes mellitus with other specified complication, without long-term current use of insulin (HCC) COLOR FUNDUS PHOTOGRAPHY - OU - BOTH NCQOSoazbes21/11/2022 12:00 PM EST MICROALBUMIN / CREATININE URINE AHKGOFlynlax77/17/2021 from Last 3 Months or Most Recently Relevant to Health Maintenance Results * POCT glycated hemoglobin, total docked device (02/21/2024 1:19 PM EST) ComponentValueRef RangeTest MethodAnalysis TimePerformed AtPathologist SignatureHemoglobin A1C7.6Specimen (Source)Anatomical Location / Laterality Collection Method / VolumeCollection TimeReceived LnsxNzdxr01/10/2024 1:19 PM EST Narrative Authorizing ProviderResult TypeResult StatusRobert J Hima DOPOINT OF CARE TEST ENTER/EDIT ORDERABLESFinal Result * Color Fundus Photography - OU - Both Eyes (01/22/2022 12:00 PM EST)Anatomical RegionLateralityModalityHeadFundus PhotographySpecimen (Source)Anatomical Location / LateralityCollection Method / VolumeCollection TimeReceived Time 01/22/2022 12:00 PM EST Narrative 01/22/2022 12:00 PM EST PERFORMED AT [facility] LOCATION:[id number] Procedure Note CONVERSION, GENERIC - 07/28/2022 PERFORMED AT [facility] LOCATION:[id number] Authorizing ProviderResult TypeResult StatusRobert J Hima DOOPHTH PHOTOGRAPHY Final Result * Microalbumin / creatinine urine ratio (07/28/2020)ComponentValueRef RangeTest MethodAnalysis TimePerformed AtPathologist ZkxakgliaGTNIS98969 - 217[facility] LABMALB3.3[facility] LABComment:mALB reference range not established.MICROALB/CREAT RATIO20.4[facility] EXTER[facility] LABSpecimen (Source)Anatomical Location / LateralityCollection Method / VolumeCollection TimeReceived Time07/28/2020 Narrative Authorizing ProviderResult TypeResult StatusRobert J Vaskoki DOLAB URINE ORDERABLESFinal ResultPerforming OrganizationAddressCity/State/ZIP CodePhone Number [facility] from Last 3 Months or Most Recently Relevant to Health Maintenance Insurance * Guarantor: Shayy Barker AAccount TypeRelation to PatientDate of BirthPhone Billing AddressPersonal/PyowdwJtia[birth year][address] [address] Advance Directives * DNR-CCA (Latest Code Status on File) Date ActivatedDate InactivatedComments07/29/2023 12:19 PM Care Teams Team MemberRelationshipSpecialtyStart DateEnd Date Vandana Orourke MD [address] [facility] [address] [place] [address] PCP - GeneralFamily Medicine05/10/24 William Rabago DO [address] [facility] [address] [place] [address] PCP - Human06/13/23 Albin Sherman DO [address] [place] [address] Referring PhysicianPulmonary Disease07/29/23
--- OUTSIDE RECORDS SUMMARY | 2025-01-22 10:45 | XMS_ITS | Patient Health Record ---
Author Organization [facility] Address [address] [place] [address] [place] [address] Care Team Providers Care Song Writer Name Role Phone Vandana Orourke Primary Care Provider UnavailLan Gao Unavailable [phone] Reason For Referral No Information Encounters Encounter Location Date Provider Diagnosis [facility] [address] [place] [address] 05/09/2024 [facility] [place] [address]/[facility] [place] [address]/[facility] Plan Of Treatment No Information Insurance Providers Payer Name Payer Address Payer Phone Subscriber Number Group Number Insured Name Patient Relationship to Insured Coverage Start Date Coverage End Date [employer] PPO [address] [address] [place], [place] [id number] [phone] [id number] Braulio Barker - patient is the insured
[2025-01-22 11:09] LABS: Hematocrit 38.9 % (36.0-48.0); Hemoglobin 12.0 g/dL (12.0-16.0); Immature Granulocytes Abs Auto 0.04 10^3/uL (0.00-0.03); Immature Granulocytes Pct Auto 0.3 % (0.0-0.5); Lymphocytes Absolute Auto 1.6 10^3/uL (1.2-3.8); Mean Corpuscular HGB Conc 30.8 g/dL (29.9-35.2); Mean Corpuscular Hemoglobin 28.4 pg (26.7-34.0); Mean Corpuscular Volume 92.2 fL (81.0-99.0); Platelet Count 183 10^3/uL (150-450); Red Blood Count 4.22 10^6/uL (4.20-5.40); White Blood Count 11.6 10^3/uL (4.0-11.0)
[2025-01-22 11:55] LABS: Anion Gap 15.7; Blood Urea Nitrogen 18.0 mg/dL (7.0-18.0); Calcium 8.7 mg/dL (8.5-10.1); Carbon Dioxide 27.3 mmol/L (21.0-32.0); Chloride 96 mmol/L (98-107); Estimated GFR (African America 38 (>=60 mL/min/1.73m^2); Estimated GFR (Non-African Ame 32 (>=60 mL/min/1.73m^2); Potassium 5.0 mmol/L (3.5-5.1); Sodium 134 mmol/L (136-145)
[2025-01-22 12:08] LABS: Glucose 565 mg/dL (74-106)
== END 2025-01-22 10:40 | disposition home or self-care (01) ==
LOC: LAB 10:39
PROVIDERS: PCP Internal Medicine; Visit Provider Family Medicine
DX: R41.82 Altered mental status, unspecified (principal)
CPT/HCPCS: 36415; 80048; 85025

== ENCOUNTER 2025-01-23 09:30 | Outpatient (REF) | payer MEDICARE, SELFPAY ==
--- OUTSIDE RECORDS SUMMARY | 2025-01-23 09:34 | XMS_ITS | Clinical Summary ---
Author Organization [facility] Address [address] [place] [address] Care Team Providers Care Painter Set Name Role Phone Albin Sherman DO Unavailable [phone] Vandana Orourke MD Primary Care Provider [phone] William Rabago DO Unavailable [phone] Allergies Active AllergyReactionsCriticalityNoted BvwySunoqqraQpjaxkqpnywm04/04/2024 IrsjvehciFkuud43/07/2017 hallucinations Other Reaction(s): Hallucinating QdcgnbwpbdgSjjnflx95/01/2021 Other Reaction(s): Unknown Reaction Hydrocodone-JpiwcuktivweeJxgnoAnffpx49/31/7475BbwaqJllvQsk56/31/2017OtherRashLow 7133VeoxluvgujpzXkuzzmx60/01/2021 Medications MedicationSigDispense QuantityRefillsLast FilledStart DateEnd DateStatus cholecalciferol [...] sodium 1 % gel Apply 2 g yrzfnqpzh70/25/2023ctive Capsaicin-Cleansing Gel (Qutenza, 4 Patch,) 8 % [...] mellitus with other specified complication, unspecified whether group home insulin use (HCC)Take 1 tablet (500 mg) [...] Continuous Glucose Sensor (FreeStyle Andrea 2 Sensor) [facility] [place] Indications:Type 2 diabetes mellitus with other specified complication, unspecified whether exterminator helper insulin use (HCC)1 each by Other route [...] 120 mL 1105Active Active Problems ProblemNoted DateDiagnosed OmfaHxjgzpncwq24/23/2024Memory loss12/05/2023OSA (obstructive sleep apnea)08/16/20239653Dphrsbnerbd91/04/4679Cponyjz01/04/2024 Inadequate sleep jqdoacl5908/16/2023ulmonary cbulvbkb63/01/2024 Overview (04/14/2023): 2023-04-[address]- Mild Atrophic cxvnxrylo19/09/2023oronary atherosclerosis of [place] coronary artery 12/20/2022iabetic elvpkzxqin17/09/2023Macular degeneration (senile) of retina 12/20/2022Osteoarthritis involving multiple joints on both sides of body 12/20/20222473Hyqqyxlhksrh64/09/2023Recurrent major depression in full remission 12/20/2022Need for vaccination with 20-polyvalent pneumococcal conjugate vaccine 12/20/2022Type 2 diabetes mellitus with other specified jluojtrtgmna04/09/2023 Genitourinary syndrome of fclhzglfu73/09/2023Frequent UTI12/20/2022Episodic paroxysmal hemicrania, not bxyjousebbe68/09/2023nticoagulated on Coumadin 12/20/2022iabetic peripheral neuropathy associated with type 2 diabetes zibdtjay65/19/9077Enremdw80/22/2021leep apnea05/21/2020Morbid euvhspz1810/31/2017 Urge wwctifqoutxr97/26/2018Chronic venous akqbielgyjtru08/03/2018 Gastroesophageal reflux disease without nyzjjcgbxdc13/21/2017Long term current use of anticoagulant ubfrrur0211/01/2016Parkinson's spqlbgn7011/01/2016Mild cognitive fixtuszuzz72/13/2017History of renal gvsebgc4512/25/2015History of DVT (deep vein thrombosis)01/29/2015PVD (peripheral vascular disease)12/20/2014Mixed nkvcjjhbnjlxka30/06/2015Benign neoplasm of cerebral tvbwmijj95/05/2015 Hypothyroidism, xcccxvmwttu14/05/2015Vitamin D ivynbspdmr68/05/2015 Resolved Problems ProblemNoted DateDiagnosed DateResolved DateCirculating anticoagulant disorder ([facility])/11/2022Recurrent falls/11/2022Incontinence of fecesEsophageal Encounters DateTypeDepartmentCare GppmCsqrbflddlb84/11/2025linisync Result Encounter [facility] External Department Unsolicited Vandana Orourke MD from Last 3 Months Immunizations ImmunizationAdministration DatesNext DueInfluenza, High Dose Seasonal, Preservative Free01/25/2022,12/03/2020,02/05/2019,02/10/2018,12/25/2015, 11/28/2013Influenza, Seasonal, Quadrivalent, Pzheemgqgv01/04/2023Influenza, injectable, quadrivalent, preservative free05/03/2017Influenza, seasonal, injectable, preservative free12/17/2014Influenza, seasonal, intradermal, preservative free01/13/2012,01/09/2010,12/16/2008Influenza, trivalent, rpipcghrew20/06/2024,12/24/2019Pneumococcal Conjugate PCV 13010/02/2014 Pneumococcal Conjugate PCV ,4Pneumococcal Polysaccharide NVOL7739TD (adult), 2 Lf tetanus toxoid, preservative free, [...] drinks on one occasion?Never03/28/2023HQ-2AnswerDate RecordedPatient Health Questionnaire-2 Tuzcp518CommentsUnknownSex and Gender InformationValueDate RecordedSex Assigned at BirthNot on fileLegal UfcPfjtvp21/15/2023 7:22 PM EDT Gender IdentityNot on fileSexual OrientationNot on file Last Filed Vital Signs Vital SignReadingTime TakenCommentsBlood Rzbkyrzm414/7012 1:08 PM EST Vmzsu665502/21/2024 1:08 PM ESTTemperature--Respiratory Rate--Oxygen Yyrzevolwz92% 02/21/2024 1:08 PM ESTInhaled Oxygen Concentration--Wljzyq430 kg (227 lb) 02/21/2024 1:08 PM OPPYmlhtl560.6 cm (5' 6 )12/05/2023 1:39 PM EDTBody Mass Index36.64012/05/2023 1:39 PM EDT Plan of Treatment DateTypeDepartmentCare Team (Latest Contact Info)Yyytamuuxdn44/15/2026 1:05 PM EDTOffice Visit [facility] [address] [place] [address] Nicol Aponte MD [address] [place] [address] Health MaintenanceDue DateLast DoneCommentsCOVID-19 Vaccine (3 - Moderna risk series)/11/2020, 05/13/2020, 1Diabetes: Urine Protein Zlvnzcjdv92, 07/28/2020, 07/18/2019, Additional history exists Diabetes: Retinopathy Yqcocvdjp08, 10/06/2021, 07/24/2021, Additional history existsDiabetes: Hemoglobin A1C/12/2023, 11/15/2023, 07/29/2023, Additional history existsInfluenza Vaccine (#1) /08/2023, 12/15/2022, 01/25/2022, Additional history exists Pneumococcal Vaccine: 65+ JmhhwKhachsmxm02/06/2024, 11/15/2023, 10/02/2014, Additional history exists Procedures Procedure NamePriorityDate/TimeAssociated DiagnosisCommentsALL BASIC METABOLIC KIHTNMoovovm62/11/2025 10:01 AM EST ALL CBC WITH AUTO MEGLJmyfuvg93/11/2025 10:01 AM EST POCT GLYCATED HEMOGLOBIN, PZRIHNaikycn01/10/2024 1:19 PM EST Type 2 diabetes mellitus with other specified complication, without long-term current use of insulin (HCC) COLOR FUNDUS PHOTOGRAPHY - OU - BOTH QSRZXfxlrlr72/11/2022 12:00 PM EST MICROALBUMIN / CREATININE URINE HCZFJLaxoddb37/17/2021 from Last 3 Months or Most Recently Relevant to Health Maintenance Results * (ABNORMAL) ALL CBC WITH AUTO DIFF (01/22/2025 10:01 AM EST)ComponentValueRef RangeTest MethodAnalysis TimePerformed AtPathologist SignatureTBH WBC11.6(H) 4.0 - 11.0 10 3/uLTBHTBH RBC4.224.20 - 5.40 10 6/uLTBHTBH HGB12.012.0 - 16.0 g/dLTBHTBH HCT38.936.0 - 48.0 %TBHTBH MCV92.281.0 - 99.0 fLTBHTBH MCH28.426.7 - 34.0 pgTBHTBH MCHC30.829.9 - 35.2 g/dLTBHTBH RDW16.5(H)11.0 - 15.0 %TBHTBH TSH257732 - 450 10 3/uLTBHTBH MPV10.99.5 - 13.5 fLTBHNEUTROPHILS PERCENT AUTO 76.8(H)43.0 - 75.0 %TBHLYMPHOCYTES PERCENT AUTO13.4(L)20.5 - 60.0 %TBH MONOCYTES PERCENT AUTO9.01.7 - 12.0 %TBHTBH EO %0.2(L)0.9 - 7.0 %TBHBASOPHILS PERCENT AUTO0.30.2 - 2.0 %TBHIMMATURE GRANULOCYTES PCT AUTO0.30.0 - 0.5 %TBH NEUTROPHILS ABSOLUTE AUTO8.9(H)1.4 - 6.5 10 3/uLTBHLYMPHOCYTES ABSOLUTE AUTO 1.61.2 - 3.8 10 3/uLTBHMONOCYTES ABSOLUTE AUTO1.1(H)0.3 - 0.8 10 3/uLTBHTBH EO #0.00.0 - 0.7 10 3/uLTBHBASOPHILS ABSOLUTE AUTO0.00.0 - 0.1 10 3/uLTBHIMMATURE GRANULOCYTES ABS AUTO0.04(H)0.00 - 0.03 10 3/uLTBHSpecimen (Source)Anatomical Location / LateralityCollection Method / VolumeCollection TimeReceived Time 01/22/2025 10:01 AM EST01/22/2025 10:49 AM EST Narrative [facility]IN[facility] - 01/22/2025 11:26 AM EST Authorizing ProviderResult TypeResult StatusVandana Orourke MDCLINISYNCFinal Result Performing OrganizationAddressCity/State/ZIP CodePhone Number [facility] * (ABNORMAL) ALL BASIC METABOLIC PANEL (01/22/2025 10:01 AM EST)ComponentValue Ref RangeTest MethodAnalysis TimePerformed AtPathologist CxtrghrqjBCLFUS467(L) 136 - 145 mmol/LTBHPOTASSIUM5.03.5 - 5.1 mmol/MLVVGUIWDTDR11(L)98 - 107 mmol/L TBHCARBON WYVYXJJ93.321.0 - 32.0 mmol/LTBHANION GAP15.1HKRCTPCLPQ225(HH)74 - 106 mg/dLTBHComment:RESULTS CALLED TOBLOOD UREA NLIVIYEY15.07.0 - 18.0 mg/dL TBHCREATININE1.56(H)0.55 - 1.02 mg/dLTBHTBH EGFR-AF GYHSTSWJ99(L)>=60 mL/min/1.73m 2TBHTBH EGFR-NON AF LGWPXJRH41(L)>=60 mL/min/1.73m 2TBHBUN CREATININE RATIO11.4CZNAGIXIAR7.78.5 - 10.1 mg/dLTBHSpecimen (Source) Anatomical Location / LateralityCollection Method / VolumeCollection Time Received Time01/22/2025 10:01 AM EST01/22/2025 10:49 AM EST Narrative CLINISYNC - 01/22/2025 12:08 PM EST [facility] DROP OFF Authorizing ProviderResult TypeResult StatusVandana Orourke MDCLINISYNCFinal Result Performing OrganizationAddressCity/State/ZIP CodePhone Number [facility] * POCT glycated hemoglobin, total docked device (02/21/2024 1:19 PM EST) ComponentValueRef RangeTest MethodAnalysis TimePerformed AtPathologist SignatureHemoglobin A1C7.6Specimen (Source)Anatomical Location / Laterality Collection Method / VolumeCollection TimeReceived LnvyMifdm07/10/2024 1:19 PM EST Narrative Authorizing ProviderResult TypeResult StatusRobchris Rabago DOPOINT OF CARE TEST ENTER/EDIT ORDERABLESFinal Result * Color Fundus Photography - OU - Both Eyes (01/22/2022 12:00 PM EST)Anatomical RegionLateralityModalityHeadFundus PhotographySpecimen (Source)Anatomical Location / LateralityCollection Method / VolumeCollection TimeReceived Time 01/22/2022 12:00 PM EST Narrative 01/22/2022 12:00 PM EST PERFORMED AT [facility] LOCATION:[id number] Procedure Note CONVERSION, GENERIC - 07/28/2022 PERFORMED AT [facility] LOCATION:[id number] Authorizing ProviderResult TypeResult StatusRobert J Vaschak DOOPHTH PHOTOGRAPHY Final Result * Microalbumin / creatinine urine ratio (07/28/2020)ComponentValueRef RangeTest MethodAnalysis TimePerformed AtPathologist NkhrhkttgDREMR36416 - 217[facility] EX[facility] LABMALB3.3[facility] LEGACY EXTERNAL LABComment:mALB reference range not established.MICROALB/CREAT RATIO20.4[facility] LEGACY EXTERNAL LABSpecimen (Source)Anatomical Location / LateralityCollection Method / VolumeCollection TimeReceived Time07/28/2020 Narrative Authorizing ProviderResult TypeResult StatusRobert J Vaschak DOLAB URINE ORDERABLESFinal ResultPerforming OrganizationAddressCity/State/ZIP CodePhone Number [facility] from Last 3 Months or Most Recently Relevant to Health Maintenance Insurance Advance Directives * DNR-CCA (Latest Code Status on File) Date ActivatedDate InactivatedComments07/29/2023 12:19 PM Care Teams Team MemberRelationshipSpecialtyStart DateEnd Date Vandana Orourke MD [address] [facility] [address] [place] [address] PCP - GeneralMercyone [facility] Centerly Medicine05/10/24 William Rabago DO [address] [facility] [address] [place] [address] PCP - Human06/13/23 Albin Sherman DO [address] [place] [address] Referring PhysicianPulmonary Disease07/29/23
--- OUTSIDE RECORDS SUMMARY | 2025-01-23 09:34 | XMS_ITS | Clinical Summary ---
Author Organization [facility] Address [address] [place] [address] Care Team Providers Care Securities Underwriter Name Role Phone William Rabago Primary Care Provider Allergies Active AllergyReactionsCriticalityNoted DateCommentsAripiprazole Contraindication-Medical Pmmmiygz13/29/2024 People with Parkinson's disease should not take this or other antipsychotics except Nuplazid, Seroquel, and Clozaril can be prescribed. Adhesive Tape (Rosins)Rash01/12/2021upropionMental Status Guhubg7501/18/2017 hallucinations ProchlorperazineContraindication-Medical Rihodpfm83/29/2024 This should not be given to people with Parkinson's disease. If not otherwise contraindicated, Zofran should be given instead. HaloperidolContraindication-Medical Fudjiqzt72/29/2024 People with Parkinson's disease should not take this or other antipsychotics except Nuplazid, Seroquel, and Clozaril can be prescribed. Hydrocodone-AcetaminophenMental Status MryrvbGzwguq39/31/2017Latex, Natural DxmdjnEypn46/31/2017PromethazineContraindication-Medical Sisawqhj19/29/2024 This should not be given to people with Parkinson's disease. If not otherwise contraindicated, Zofran should be given instead. MetoclopramideContraindication-Medical Unqgkzpi93/29/2024 This should not be given to people with Parkinson's disease. Rosuvastatin ZqjkzzbHdtahty36/01/2021 Medications MedicationSigDispense QuantityRefillsLast FilledStart DateEnd DateStatus cholecalciferol [...] BY MOUTH TWICE DAILY WITH FOOD01/13/2022 Active Notrefamille.comSTYLE VIVIAN 2 SENSOR kit apply 1 SENSOR [...] once daily.Active Active Problems ProblemNoted DateDiagnosed DatePulmonary rficnyxd91/11/2024epression with gtqclmz2501/20/2023Obesity, Class I, BMI 30-34.9007/08/2022arkinson's disease without dyskinesia, with fluctuating ssirjzffvfbjar16/20/2018OSTEOARTHROS KNEE 06/29/2012 Family History RelationStatusCommentsFatherDeceasedMotherDeceased Social History Tobacco UseTypesPacks/DayYears UsedDateSmoking Tobacco: FormerSmokeless Tobacco: Never Tobacco Cessation:Counseling Given: Not Answered PHQ-2AnswerDate RecordedPHQ-2 xioxw28204/26/2023rea Deprivation IndexAnswerDate RecordedNational Score (1-100), lower number is lower tbnf259501/20/2023State Score (1-10), lower number is lower jnrv6763Data from: https://www.neighborhoodatlas.medicine.[facility].edu/. Last address used for etpcfudc[address] [facility] [address]/20/2023CommentsNoSex and Gender InformationValueDate RecordedSex Assigned at SnwgmTifyag80/14/2020 7:29 PM EDT Legal BswFxfcxo91/02/2012 9:45 AM ESTGender HjkvjwfvAoprja48/14/2020 7:29 PM EDT Sexual PiapwyreswiKzmtyjmq15/14/2020 7:29 PM EDT Last Filed Vital Signs Vital SignReadingTime TakenCommentsBlood Ylivypuk067/7608/ 1:24 PM EDT Pjofy113410/25/2023 1:24 PM EDTTemperature--Respiratory Ryrm0332 1:03 PM EDTOxygen Lonlzegqvx27%10/25/2023 1:24 PM EDTInhaled Oxygen Concentration-- Jdsaaw103 kg (247 lb)10/25/2023 1:24 PM EDTPer pt. Did not get weighedHeight 167.6 cm (5' 6 )10/25/2023 1:24 PM EDTBody Mass Index39.8710/25/2023 1:24 PM EDT Plan of Treatment DateTypeDepartmentCare Team (Latest Contact Info)Fclpxenwgqu93/12/2026 3:00 PM ESTOffice Visit Neurology [address] [phone] Gloria Perez, LAWNMOWER MECHANIC.TITLE INSPECTOR [address] [place] [address] Annual follow upHealth MaintenanceDue DateLast DoneCommentsShingrix Vaccine (1 of 2)07/14/1991DTaP,Tdap,Td Vaccine (1 - Tdap)RSV Vaccine (1 - 1-dose 75+ series)2016Advance Directive Nktbloefih80/01/2025Medicare Advantage Annual Wellness Visit03/14/2024ovid-19 Vaccine ( season) 511/11/2020, 05/13/2020, 04/15/2020Influenza Vaccine (#1)2024 01/18/2024, 12/15/2022, 01/25/2022, Additional history existsDiabetes Screening 712/12/2023, 07/29/2023, 4Bone Density ScreeningCompleted 2Pneumococcal Vaccine: 50+Iqayuyecl23/06/2024, 11/15/2023, 10/02/2014, Additional history exists Insurance * Guarantor: Shayy Barker AAc TypeRelation to PatientDate of BirthPhone Billing AddressPersonal/BopcuiKtgu44[birth year][address] [address] Care Teams Team MemberRelationshipSpecialtyStart DateEnd Date William Rabago DO [address] [facility] [address] [place] [address] PCP - Ezpajct34/6/05
--- OUTSIDE RECORDS SUMMARY | 2025-01-23 09:34 | XMS_ITS | Encounter Summary ---
Author Organization [facility] Address [address] [place] [address] Care Team Providers Care Industrial Conveyor Belt Repairer Name Role Phone Albin Sherman DO Unavailable [phone] Vandana Orourke MD Primary Care Provider [phone] William Rabago DO Unavailable [phone] Encounter Details DateTypeDepartmentCare Team (Latest Contact Info)Ckzapunbpko38/11/2025Clinisync Result Encounter [facility] External Department Unsolicited Vandana Orourke MD [address] [facility] [address] [place] [address] Social History Tobacco UseTypesPacks/DayYears UsedDateSmoking Tobacco: NeverSmokeless Tobacco: NeverAlcohol UseStandard Drinks/WeekCommentsNever0 (1 standard drink = 0.6 oz pure alcohol)caffeine: coffee 1-2 cups a dayAUDIT-CAnswerDate RecordedQ1: How often do you have a drink containing alcohol?Never03/28/2023Q2: How many drinks containing alcohol do you have on a typical day when you are drinking?Patient does not drink03/28/2023Q3: How often do you have six or more drinks on one occasion?Never4PHQ-2AnswerDate RecordedPatient Health Questionnaire-2 Objuc0314CommentsUnknownSex and Gender InformationValueDate RecordedSex Assigned at BirthNot on fileLegal IykLeosrm72/15/2023 7:22 PM EDT Gender IdentityNot on fileSexual OrientationNot on filedocumented as of this encounter Plan of Treatment DateTypeDepartmentCare Team (Latest Contact Info)Ityliaynsrr03/15/2026 1:05 PM EDTOffice Visit [facility] [address] [place] [phone] Nicol Aponte MD [address] [place] [address] documented as of this encounter Procedures Procedure NamePriorityDate/TimeAssociated DiagnosisCommentsALL CBC WITH AUTO AOCIIpndnsc60/11/2025 10:01 AM EST ALL BASIC METABOLIC MSXUWKuyahce30/11/2025 10:01 AM EST documented in this encounter Results * (ABNORMAL) ALL BASIC METABOLIC PANEL (01/22/2025 10:01 AM EST)ComponentValue Ref RangeTest MethodAnalysis TimePerformed AtPathologist VdjeucdpuDATJJQ601(L) 136 - 145 mmol/LTBHPOTASSIUM5.03.5 - 5.1 mmol/WHDGUTZROPJE63(L)98 - 107 mmol/L TBHCARBON XXTUESQ23.321.0 - 32.0 mmol/LTBHANION GAP15.7JQBYASDFIT145(HH)74 - 106 mg/dLTBHComment:RESULTS CALLED TOBLOOD UREA LRPVTLFD70.07.0 - 18.0 mg/dL TBHCREATININE1.56(H)0.55 - 1.02 mg/dLTBHTBH EGFR-AF RAEGDGTS81(L)>=60 mL/min/1.73m 2TBHTBH EGFR-NON AF DCWMFSUC36(L)>=60 mL/min/1.73m 2TBHBUN CREATININE RATIO11.0RAOCBMXMAJ5.78.5 - 10.1 mg/dLTBHSpecimen (Source) Anatomical Location / LateralityCollection Method / VolumeCollection Time Received Time01/22/2025 10:01 AM EST01/22/2025 10:49 AM EST Narrative CLINISYNC - 01/22/2025 12:08 PM EST [facility] DROP OFF Authorizing ProviderResult TypeResult StatusVandana Orourke MDCLINISYNCFinal Result Performing OrganizationAddressCity/State/ZIP CodePhone Number [facility] * (ABNORMAL) ALL CBC WITH AUTO DIFF (01/22/2025 10:01 AM EST)ComponentValueRef RangeTest MethodAnalysis TimePerformed AtPathologist SignatureTBH WBC11.6(H) 4.0 - 11.0 10 3/uLTBHTBH RBC4.224.20 - 5.40 10 6/uLTBHTBH HGB12.012.0 - 16.0 g/dLTBHTBH HCT38.936.0 - 48.0 %TBHTBH MCV92.281.0 - 99.0 fLTBHTBH MCH28.426.7 - 34.0 pgTBHTBH MCHC30.829.9 - 35.2 g/dLTBHTBH RDW16.5(H)11.0 - 15.0 %TBHTBH WLF661734 - 450 10 3/uLTBHTBH MPV10.99.5 - 13.5 [...] 11:26 AM EST Authorizing ProviderResult TypeResult StatusVandana Mitch [place] MDCLINISYNCFinal Result Performing OrganizationAddressCity/State/ZIP CodePhone Number [facility] documented in this encounter Visit Diagnoses Not on filedocumented in this encounter Care Teams Team MemberRelationshipSpecialtyStart DateEnd Date Vandana Orourke MD [address] [place] [address] PCP - GeneralFamily Medicine05/10/24 William Rabago DO [address] [place] [address] PCP - [employer]4 Albin Sherman DO [address] [place] [address] Referring PhysicianPulmonary Disease07/29/23documented as of this encounter
--- OUTSIDE RECORDS SUMMARY | 2025-01-23 09:34 | XMS_ITS | Clinical Summary ---
Author Organization [facility] Address [id number] [address] [place] [address] Care Team Providers Care Control Systems Designer Name Role Phone William Rabago DO Primary Care Provider [phone] Allergies Active AllergyReactionsCriticalityNoted DateCommentsLatex, Natural Rubber 04/13/2016Hydrocodone-Cvgpppbvlrgem10/31/2017 Medications MedicationSigDispense QuantityRefillsLast FilledStart DateEnd DateStatus aspirin [...] with meals.Active Active Problems ProblemNoted DateDiagnosed DateUrinary bqwarvcxsyve44/31/2017 Overview (04/13/2016): Urge incontinence improved with VESIcare 5 mg. Plan to switch to oxybutynin 5 mg b.i.d. for cost savings. Recommended caffeine elimination, timed voids Family History * Patient is adopted Medical HistoryRelationNameCommentsAlcohol abuseMotherCancerMothercervical and brainCancerSisterbreastDepressionSisterHypothyroidismSisterRelationNameStatus CommentsFatherDeceasedMotherDeceasedSister Social History Tobacco UseTypesPacks/DayYears UsedDateSmoking Tobacco: NeverChildcareAnswerDate HzhqcvtoJcbnuapsnOzboirq70/12/2019EmploymentAnswerDate RecordedEmploymentUnknown 08/23/2018Purpose - LifeAnswerDate RecordedPurpose and direction in lifeUnknown 1CommentsUnknownSex and Gender InformationValueDate RecordedSex Assigned at BirthNot on fileLegal XapMecqdj83/05/2015 5:13 PM EDTGender Identity Not on fileSexual OrientationNot on file Last Filed Vital Signs Vital SignReadingTime TakenCommentsBlood Jubsxkof172/75004/13/2016 3:05 PM EST Lhirp4320/31/2017 3:05 PM ESTTemperature--Respiratory Rate--Oxygen Saturation-- Inhaled Oxygen Concentration--Ahnmmo034.7 kg (255 lb)04/13/2016 3:05 PM EST Vstkzm558.6 cm (5' 6 )04/13/2016 3:05 PM ESTBody Mass Index41.16004/13/2016 3:05 PM EST Plan of Treatment Health MaintenanceDue DateLast DoneCommentsDepression Tfvdnqtpx50/02/1954Tobacco Yipheaxcd47/02/1954DTaP,Tdap and Td Vaccines (1 - Tdap)1960Zoster (Shingles) Vaccine (1 of 2)07/14/1991Fall Risk Ywmyydzbh94/02/2007RSV ( or age 60+ yrs) (1 - 1-dose 75+ series)2016Influenza Enrdspz7611/12/2024 Medical Devices Not on file Insurance Care Teams Team MemberRelationshipSpecialtyStart DateEnd Date William Rabago DO [address] [place] [address] PCP - General04/13/16
--- OUTSIDE RECORDS SUMMARY | 2025-01-23 09:34 | XMS_ITS | Clinical Summary ---
Author Organization [facility] Address [address] [place] [address] Phone Care Team Providers Care Dictating Machine Typist Name Role Phone William Rabago DO Primary Care Provider Social History Tobacco UseTypesPacks/DayYears UsedDateSmoking Tobacco: Never Assessed CommentsUnknownSex and Gender InformationValueDate RecordedSex Assigned at Not on fileLegal TxgHwcjca99/26/2022 12:00 PM ESTGender IdentityNot on file Sexual OrientationNot on file Plan of Treatment Not on file Care Teams Team MemberRelationshipSpecialtyStart DateEnd Date William Rabago DO PCP - General08/12/17
--- OUTSIDE RECORDS SUMMARY | 2025-01-23 09:55 | XMS_ITS | CCD ---
Author Organization [facility] Care Team Providers Care Testing And Regulating Chief Name Role Phone Honey Rabago Primary Care Provider [phone] Honey Rabago Attending Provider Anu Alva Unavailable Honey Rabago DO Primary Care Provider Honey Rabago DO Primary Care Provider Oswaldo Almonte Unavailable DO Honey Rabago Primary Care Provider DO Alton Valderrama Emergency Provider DO Holger Dorado Emergency Provider DO Honey Rabago Attending Provider DO Marvin Peter Emergency Provider MD Enrrique Mota Admit Provider [phone] MD Jairo Benson Other Provider MD Oswaldo Almonte Other Provider MD Gaye Claire Attending Provider [phone] MD Alcides Moya Admit Provider MD Alcides [...] Provider MD Damion Thapa Other Provider Cortney, COMMERCIAL ART INSTRUCTOR-C Faustina Quiroga Other Provider MD Valente Lauren [...] DO Honey Rabago Primary Care Provider [phone] DO Marvin Peter Emergency Provider MD Enrrique Mota Admit Provider MD Jairo Benson Other Provider MD Oswaldo Almonte Other Provider MD Gaye Claire Attending Provider MD Alcides Moya Admit Provider MD Alcides Moya Attending Provider KORTNEY Mehta Other Provider Unavailable KORTNEY Hannah Other Provider Unavailable KORTNEY Dutton Other Provider Unavailable KROTNEY Garrett Other Provider Unavailable KORTNEY Smith Other Provider Unavailable KORTNEY Ayon Other Provider Unavailable MD Familia Villatoro Other Provider MD Misha Ziegler Other Provider Dials, STAGE MANAGER Chery M Other Provider [phone] DO José Miguel Tellez Other Provider MD George Chan Other Provider DO Justice De Oliveira Other Provider MD Enrrique Mota Other Provider [phone] MD Rosa Maria Odell Other Provider Angeli ANP-BC Tonya Other Provider MD Juan Wallace Other Provider [phone] MD Jerson Walker Other Provider MD Gaye Claire Other Provider MD Queta Mclain Other Provider MD Rd Blackmon Other Provider MD Anibal Gallagher Other Provider MD Damion Thapa Other Provider KAYODE Barr Other Provider MD Valente Lauren Other Provider MD Kareem Eliznodo Other Provider MD Italia Colbert Other Provider MD Ronan Davidson Other Provider DO Shantel Nayak Other Provider MD Kaylie Guthrie Other Provider DO Michael Del Rio Other Provider DO Sony Canela Other Provider [phone] HEIDI Jaimes Other Provider DO Lázaro Pratt Other Provider MD Corona Weathers Other Provider KORTNEY Terry Other Provider Unavailable DO Honey Rabago Attending Provider Honey Rabago DO Primary Care Provider DO Honey Rabago Primary Care Provider DO Honey Rabago Attending Provider HIMA, DR MÉNDEZ Admitting Unavailable VASCHAK, DR [...] Admitting Unavailable VASCHAK, DR MÉNDEZ Consulting Unavailable VaschaHoney chavarria DO Primary Care Provider [phone] Honey Rabago DO Primary Care Provider Hima LOPEZ, Honey Quiroga Primary Care Provider Whit ALMONTE, Juani P Unavailable AUDREY TORRES Attending Unavailable GLORIA PEREZ Referring Unavailable VASCHAK, HONEY MCGRATH Primary Care Unavailab le CHRIS, GLORIA Attending Unavailable GLORIA PEREZ Referring Unavailable VASCHAK, HONEY MCGRATH Primary Care Unavailab jaime PEREZ, GLORIA Attending Unavailable VASCHAK, HONEY MCGRATH Primary Care Unavailab GLORIA Villeda Attending Unavailable VASCHAK, HONEY MCGRATH Primary Care Unavailab le VaschaHoney chavarria DO [facility] Care Provider Brennen ALMONTE, Lillian Robert Emergency Provider Shakeel Jones MD Attending Provider [phone] Shakeel Jones Admitting Unavailable Shakeel Jones Attending Unavailable Honey Rabago Primary Care Unavailable Lillian Hutton Admitting Unavailable Lillian Hutton Attending Unavailable Vaskoki, Honey Primary Care Unavailable Lillian Hutton Admitting Unavailable Lillian Hutton Attending Unavailable Hima, Honey Primary Care Unavailable Vandana Orourke MD Primary Care Provider Whit LOPEZ Juani P Unavailable URBANO HUTTON Attending Unavailable SIXTO APONTE Attending Unavailable SIXTO APONTE Attending Unavailable MAC VILLASENOR Attending Unavailable HONEY RABAGO Referring Unavailable URBANO HUTTON Attending Unavailable MAC VILLASENOR Attending Unavailable HONEY RABAGO Referring Unavailable LIS PAEZ Attending Unavailable URBANO HUTTON Attending Unavailable MAC VILLASENOR Attending Unavailable Honey Rabago DO Primary Care Provider [phone] Whit LOPEZ Juani P Unavailable Honey Rabago DO Unavailable Honey Rabago DO Primary Care Provider [phone] Honey Rabago DO Unavailable [phone] Walker HENDRICKSLeslie Unavailable [phone] Allergies Allergy ClassificationReported Allergen(s)Allergy TypeDate of OnsetReaction(s) FacilityAminoketones (1 source)buPROPionDrug Wwpwivy88-70-6119IvyzzqpqrbgsvFadrxlpzu [facility] CtrLatex (1 source)LatexSubstance Uwgiluk54-04-7678YvoiHkwfjefkt [facility] Opioid Agonists (1 source)HYDROcodoneDrug Kbocegy53-68-3983Anmgnfu ReactionOhiohealth O[facility] Ctr (20 sources)Acetaminophen / HYDROcodone; Translations: [Vicodin]Drug Allergy UnknownThe [facility] (20 sources)buPROPion; Translations: [BUPROPION]Drug Bphqhoo65-94-6394Fzdjen Status Change, [facility] Work Phone: (20 sources)LatexPropensity to adverse axltvmryu71-07-5726Cxkvmgb, [facility] (20 sources)Acetaminophen / HYDROcodone; Translations: [HYDROCODONE-ACETAMINOPHEN]Drug Nutiagt47-52-4615Qcxevx Status Change, [facility] (16 sources)Adhesive Tape; Translations: [ADHESIVE TAPE (ROSINS)]Allergy to excdmobcq13-76-3465DizjSzximhjdc Clinic Work Phone: (20 sources)Latex; Translations: [LATEX, NATURAL RUBBER]Drug Yrpxiuf97-69-5263 [facility] (16 sources)rosuvastatin; Translations: [ROSUVASTATIN CALCIUM]Drug Allergy 86-53-2158TdaqdxgYhceidebq Clinic Work Phone: (20 sources)HYDROcodone; Translations: [hydrocodone]Drug Gewniqb70-87-4355 [facility] (1 source)natural latex rubberDrug allergy (disorder)[facility] (20 sources)Rosuvastatin calciumAllergy to -42-3044SjjabwxCPGF Healthcare (20 sources)OtherAllergy to udjgaofnq96-36-0400MjjyUVDS Healthcare (20 sources)atorvastatinDrug Bzqshbp99-79-0611Yqrjmfz ReactionSaint Joseph Health Center (1 source)ARIPiprazoleDrug Rzweywr75-07-8640Lcqgeqytxxyooxej-Sxrfjgk [facility] (1 source)HaloperidolDrug Secgkyj93-29-8804Eyusemyqulrsjfoy-Fwmtwav [facility] (1 source)MetoclopramideDrug Vcctpns67-90-5353Lsdebkfzeizulksh-Wfynqkk [facility] (1 source)ProchlorperazineDrug Rpqeamd17-75-6758Ctbbwiypikokdtlq-Bkvpzyb [facility] (1 source)PromethazineDrug Gaboljl49-06-8780Avsbontbzmbwcute-Ircotxa [facility] (1 source)atorvastatinDrug Ostsiui29-33-2449XmltmrdxxK[facility]tering [facility] (1 source)buPROPionDrug Fwxhstr80-38-1637BhcwodysxKettering Health – [facility] Rep[facility] (1 source)LatexDrug allergy (disorder)93-99-3928TiljvpvxfKettering Health – [facility] Repository Medications Current Medications MedicationDrug Class(es)DatesSig (Normalized)Sig (Original)acetaminophen 500 mg oral tablet (20 sources)Start: 11-11-2021 End: 52-75-7518vyhz 1000 mg by mouth three times dailyAcetaminophen Active 1000 MG PO Three times daily November 23, 2021 11:00pmStart: 86-62-5381qvfb 1000 mg by mouth three times dailyAcetaminophen Active 1000 MG PO Three times daily November 11, 2021 1:48pmStart: 88-53-2363aoyq 1000 mg by mouth three times dailyAcetaminophen Active 1000 MG PO Three times daily November 11, 2021 1:48pm Start: 11-10-2021 End: 99-36-3928wtnl 2 tablets by mouth three times dailyAcetaminophen 500 mg Tablet Active 1000 MG PO Three times daily November 23, 2021 11:00pm Start: 11-10-2021 End: 59-26-8274ilnp 1000 mg by mouth three times dailyAcetaminophen Discontinued 1000 MG PO Three times daily 0 November 09, 2021 11:00pm November 11, 2021 12:48pmStart: 11-04-2021 End: 25-15-9114qhme 1 tablet by mouth three times daily as needed for pain Acetaminophen 650 mg Tablet Discontinued 650 MG PO Three times daily as needed for Pain November 03, 2021 11:00pm November 11, 2021 11:27am End: 59-50-3190bupf 1 tablet by mouth every eight hours as neededacetaminophen (TYLENOL) 500 mg tablet Take 500 mg by mouth every 8 hours as needed. 01/18/2023: Pt takes 2 tabs daily per [facility] med list 03/06/2024 Discontinuedtake 1 tablet by mouth every six hours as neededAcetaminophen 500 MG 1 tablet as needed Orally every 6 hrs ActiveComment on above:Take 500 mg by mouth every 8 hours as needed. 01/18/2023: Pt takes 2 tabs daily per [facility] listacetaminophen 325 mg / oxyCODONE hydrochloride 5 mg oral tablet (2 sources)Opioid AgonistStart: 01-01-0418pilg 0.5 tablet by mouth every four to six hours as needed for painOxycodone-Acetaminophen (Percocet) 5-325 mg tablet Active 0.5 TAB PO EVERY 4-6 HOURS as needed for Pain 14 March 04, 2024 End: 68-64-1700kroFOHMZM-acetaminophen (PERCOCET) 5-325 mg tablet Take by mouth every 4 hours as needed for pain. 1/2 tablet q 4h as needed 03/06/2024 DiscontinuedAspir-81 (16 sources)Aspir-81 Activeaspirin 81 mg delayed release oral tablet (20 sources)Platelet Aggregation Inhibitor, Nonsteroidal Anti-inflammatory Drug Start: 01-18-2017 End: 51-87-7452dsyd 1 tablet by mouth once dailyaspirin 81 MG EC tablet Indications: Hypertension, unspecified type Take 1 tablet (81 mg) by mouth Daily 100 tablet 3 11/17/2023 ActiveComment on above:Take 81 mg by mouth once daily. atorvastatin 40 mg oral tablet (20 sources)HMG-CoA Reductase InhibitorStart: 47-74-8350qmxd 1 tablet by mouth once dailyatorvastatin (Lipitor) 40 MG tablet Indications: Mixed hyperlipidemia Take 1 tablet (40 mg) by mouth 1 (one) time each day at the same time 90 tablet 3 03/15/2024 ActiveStart: 11-04-2021 End: 49-11-2212gphv 1 tablet by mouth once dailyatorvastatin (Lipitor) 40 MG tablet Indications: Mixed hyperlipidemia (CMS/HCC) Take 1 tablet (40 mg) by mouth 1 (one) time each day at the same time 90 tablet 3 02/15/2023 ActiveStart: 41-72-1862zkeo 40 mg by mouth once daily at bedtimeAtorvastatin Active 40 MG PO Daily at bedtime November 04, 2021 12:00amStart: 04-22-2020 End: 25-94-1422ucku 1 tablet by mouth once dailyatorvastatin (LIPITOR) 40 mg tablet TAKE 1 TABLET BY MOUTH ONCE DAILY FOR 90 DAYS 0 04/22/2020 09/29/2021 DiscontinuedComment on above:Take 40 mg by mouth once daily.TAKE 1 TABLET BY MOUTH ONCE DAILY FOR 90 DAYScapsaicin 0.08 mg/mg medicated patch (20 sources)Start: 47-80-6639Jkqnnxcrn-Cleansing Gel (Qutenza, 4 Patch,) 8 % patch 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 Prescriber to vijay area. Once applied, remove after 30 minutes and clean area with supplied gel. 1 patch 3 05/30/2023 Activecarbidopa 25 mg / levodopa 100 mg oral tablet (20 sources)Aromatic Amino Acid Decarboxylation Inhibitor, Aromatic Amino Acid Start: 92-25-6637ofhh 1.5 tablets by mouth once dailyCarbidopa-Levodopa 25-100 mg Tablet Active 1.5 TAB PO Daily March 04, 2024 12:00amStart: 01-17-2024 take 1.5 tablets by mouth in the morning, then take 1 tablet by mouth three times dailycarbidopa-levodopa (Sinemet) 25-100 MG tablet Indications: Parkinson's disease without dyskinesia or fluctuating manifestations (HCC) Take 1.5 tablets by mouth in the morning. Then 1 tablet TID. 135 tablet 3 01/17/2024 ActiveStart: 04-13-2022 End: 50-28-4174ohls 1.5 tablets by mouth in the morning, then take 1 tablet by mouth three times dailycarbidopa-levodopa (Sinemet) 25-100 MG tablet Indications: Parkinson's disease without dyskinesia or fluctuating manifestations (CMS/HCC) Take 1.5 tablets by mouth in the morning. Then 1 tablet TID. 135 tablet 3 11/17/2023 ActiveStart: 11-04-2021 End: 73-64-8057zykl 1.5 tablets by mouth three times dailyCarbidopa-Levodopa 25- 100 mg Tablet Discontinued 1.5 TAB PO Three times daily November 23, 2021 11:00pm March 04, 2024 8:08pmStart: 60-81-2744ssvs 1.5 tablets by mouth three times dailyCarbidopa-Levodopa Active 1.5 TAB PO Three times daily November 04, 2021 12:00amStart: 02-03-2021 End: 57-55-8511xivu 1.5 tablets by mouth three times dailycarbidopa-levodopa (SINEMET 25-100) 25-100 mg per tablet Indications: Parkinson's disease (HCC) Take 1.5 tablets by mouth three times daily. 405 tablet 3 02/03/2021 04/13/2022 Discontinuedtake 1 tablet by mouth every eight hoursSinemet 10-100 MG 1 tablet Orally Three times a day Activetake 1 tablet by mouth every eight hoursComment on above:Take 1.5 tablets by mouth three times daily.Take 1.5 tablets by mouth three times a day.cephalexin 500 mg oral capsule (12 sources)Cephalosporin AntibacterialStart: 09-08-8184dbfw 1 capsule by mouth every eight hoursCephalexin 500 mg Capsule Active 500 MG PO Every 8 hours 01 10March 04, 2024 12:00amStart: 09-28-2021 End: 26-08-5031eyqn 1 capsule by mouth every eight hoursCephalexin 500 mg Capsule Discontinued 500 MG PO Q8H 01 10September 27, 2021 11:00pm November 04:00pmtake 1 tablet by mouth three times dailyCephalexin 500 mg tab Take 500 mg by mouth three times a day. Active End: 99-03-8062qyjrHDYTuk (KEFLEX) 500 mg capsule Take 500 mg by mouth. 1 cap x2 daily for 5 days 0 02/15/2022 Discontinued (Course of therapy completed)Comment on above:Take 500 mg by mouth. 1 cap x2 daily for 5 dayscholecalciferol 0.125 mg oral capsule (20 sources)Vitamin DStart: 26-18-0979xlhd 1 capsule by mouth once daily Cholecalciferol (Vitamin D3) 125 mcg (5,000 unit) Capsule Active 125 MCG PO Daily November 23, 2021 11:00pmStart: 11-04-2021 End: 73-16-4937gxpg 1 tablet by mouth once daily in the morningCholecalciferol (Vitamin D3) (Vitamin D3) 125 mcg (5,000 unit) Tablet Discontinued 125 MCG PO Everymorning November 03, 2021 11:00pm November 25, 2021 3:32pmStart: 94-91-7726zetr 1 tablet by mouth once daily in the morningCholecalciferol (Vitamin D3) (Vitamin D3) 125 mcg (5,000 unit) Tablet Active 125 MCG PO Every morning November 04, 2021 12:00amcholecalciferol (Vitamin D-3) 50 MCG (2000 UT) capsule 1 capsule 1 (one) time each day at the same time Activecholecalciferol (VITAMIN D3) 5,000 unit tab Take by mouth once daily. Activetake 1 capsule by mouth once dailyCholecalciferol 125 MCG (5000 UT) 1 capsule Orally Once a day ActiveCholecalciferol, Vitamin D3, 1,000 unit cap Take by mouth once daily. 0 ActiveComment on above:Take by mouth once daily.clotrimazole 10 mg/ml topical cream (17 sources)Azole AntifungalStart: 11-15-2023 End: 26-58-7087swvhiffyduwi (Lotrimin) 1 % cream Indications: Vaginal yeast infection Apply topically 2 (two) times a day Apply to vagina at bedtime for 10 days 15 g 1 11/17/2023 03/16/2024 ActiveContinuous Blood Gluc Sensor (FreeStyle Vivian 2 Sensor) misc (7 sources)Start: 24-93-5577Ipmjxlinnk Blood Gluc Sensor (FreeStyle Vivian 2 Sensor) misc Indications: Type 2 diabetes mellitus with other specified complication, unspecified whether chcf insulin use ([facility]/HCC) apply 1 SENSOR to back OF UPPER ARM REMOVE AND REPLACE every 14 days 6 each 3 02/14/2023 ActiveContinuous Glucose Sensor (FreeStyle Vivian 2 Sensor) misc (20 sources)Start: 00-91-7039Hjoltbyrut Glucose Sensor (FreeStyle Vivian 2 Sensor) mis Indications: Type 2 diabetes mellitus with other specified complication, unspecified whether chcf insulin use (HCC) 1 each by Other route Every 10 (ten) days 9 each 3 11/22/2023 ActiveStart: 18-93-0231Htyrxrdnnr Glucose Sensor (FreeStyle Vivian 2 Sensor) [facility] [place] [facility] Indications: Type 2 diabetes mellitus with other specified complication, unspecified whether 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 ([facility]) 1 each by Other route Every 10 (ten) days 9 each 3 11/22/2023 ActiveDiclofenac (20 sources)Nonsteroidal Anti-inflammatory DrugStart: 49-73-1012xqfps 2 g topically twice daily as needed for painDiclofenac Sodium 1 % gel Active 2 GM TOPICAL Twice daily as needed for pain March 04, 2024 12:00am apply to single elbow, wrist or hand; for hand includes palm/fingers/back of handStart: 78-37-0406gugzikcgpi sodium 1 % gel Apply 2 g topically 05/08/2022 ActiveStart: 31-67-6634iwsqrbtohw (VOLTAREN) 1 % topical gel 05/08/2022 Active End: 02-26-3889lnaziimkvt sodium 10% topical gel (CPD) Apply to affected area. 0 01/20/2023 Discontinueddiclofenac sodium 10% topical gel (CPD) Apply to affected area. 0 Active End: 96-59-4808MPTYVOJJSF SODIUM TOPICAL Apply to affected area as needed. 0 02/15/2022 Discontinued (Course of therapy completed)DICLOFENAC SODIUM TOPICAL Apply to affected area as needed. 0 ActiveComment on above:Apply to affected area as needed.Apply to affected area.estradiol 0.1 mg/ml vaginal cream (20 sources)EstrogenStart: 67-47-5994Dxqmjtjph 0.01 % (0.1 mg/gram) cream Active 1 APPLICATOR VAGINAL every week March 04, 2024 12:00am mondaystart: 12-20-2022 End: 78-07-6235szbyaqczc (Estrace) 0.1 MG/GM vaginal cream Indications: Genitourinary syndrome of menopause Apply to vagina 3x/week x 1month then 2x/week x 1 month then once weekly 42.5 g 3 11/17/2023 11/16/2024 ActiveComment on above:Use vaginally one time a week.fluconazole 150 mg oral tablet (2 sources)Azole AntifungalStart: 11-23-2023 End: 86-17-5609ehcl 1 tablet by mouth oncefluconazole (Diflucan) 150 MG tablet Indications: Vaginal yeast infection Take 1 tablet (150 mg) bydcuth 1 (one) time for 1 dose 2 tablet 11/23/2023 11/23/2023 Activefluocinolone acetonide 0.1 mg/ml topical oil (20 sources)CorticosteroidStart: 10-06-2023 End: 36-28-3976Tuptjewlfjvf Acetonide Scalp 0.01 % oil Indications: Other seborrheic dermatitis Apply to scalp at bedtime as needed for rough, scaly area 118.28 mL 10/06/2023 09/25/2024 DiscontinuedStart: 49-22-8591Oakrdjczxbon Acetonide Scalp 0.01 % oil Indications: Other seborrheic dermatitis Apply to scalp at bedtime as needed for rough, scaly area 118.28 mL 10/07/2022 Active Fluocinolone-Shower Cap 0.01 % oil by scalp route. ActiveComment on above:by scalp route.fluocinonide 0.5 mg/ml topical solution (20 sources)CorticosteroidStart: 10-06-2023 End: 05-75-3920fdhedhisxwss (Lidex) 0.05 % external solution Indications: Other seborrheic dermatitis Apply to affected areas on the scalp every day prn flares 60 mL 10/06/2023 09/25/2024 DiscontinuedStart: 59-72-2200hablzfvddmgt (Lidex) 0.05 % external solution Indications: Other seborrheic dermatitis Apply to affe cted areas on the scalp every day prn flares 60 mL 10/07/2022 ActiveFREESTYLE VIVIAN 2 SENSOR kit (11 sources)Start: 60-73-1874DSDBYPXST VIVIAN 2 SENSOR kit apply 1 SENSOR to back OF UPPER ARM REMOVE AND REPLACE every 14 days 01/25/2022 ActiveStart: 59-26-8334PTHGUAWJA VIVIAN 2 SENSOR kit apply 1 SENSOR to back OF UPPER ARM REMOVE AND REPLACE every 14 days ActiveComment on above:apply 1 SENSOR to back OF UPPER ARM REMOVE AND REPLACE every 14 daysketoconazole 20 mg/ml medicated shampoo (20 sources)Azole AntifungalStart: 14-42-0153aoglylbnnpli (NIZOral) 2 % shampoo Indications: Other seborrheic dermatitis Lather on scalp 2-3 x weekly, leave on 5 min before rinsing 120 mL 09/25/2024 ActiveStart: 09-25-2024 End: 08-87-6466eexkcogcgiat (NIZOral) 2 % cream Indications: Other seborrheic dermatitis Apply topically Daily Apply thin layer to affected areas on the face when flared, hold when clear, 30 day supply 60 g 09/25/2024 10/25/2024 Active Start: 18-68-8015Abtkqvtucjll 2 % shampoo Active 1 APPLIC TOPICAL every Tuesday, Tuesday, and Tuesday 12:00amStart: 10-06-2023 End: 17-76-8048lkqvvctmflzu (NIZOral) 2 % shampoo Indications: Other seborrheic dermatitis Lather on scalp 2-3 x weekly, leave on 5 min before rinsing 120 mL 10/06/2023 09/25/2024 DiscontinuedStart: 86-11-8975qmwfldizwbnt (NIZOral) 2 % shampoo Indications: Other seborrheic dermatitis Lather on scalp 2-3 x weekly, leave on 5 min before rinsing 120 mL 10/07/2022 Active End: 40-82-6486svsjohbasygs (NIZORAL) 2 % shampoo Apply to affected area two times a week. ActiveComment on above:Apply 1 application to affected area as directed.Apply to affected area two times a week.levothyroxine sodium 0.075 mg oral tablet (20 sources)l-ThyroxineStart: 01-18-2017 End: 35-11-2723dsou 1 tablet by mouth in the morninglevothyroxine (Synthroid, Levoxyl) 75 MCG tablet Indications: Hypothyroidism, unspecified type Take1 tablet (75 mcg) by mouth in the morning. Take on an empty stomach.. 90 tablet 3 11/17/2023 ActiveSynthroid 75 MCG 1 tablet every morning on an empty stomach Orally Once a day for 30 day(s) ActiveComment on above:once daily.lidocaine 0.04 mg/mg medicated patch (20 sources)Antiarrhythmic, Amide Local AnestheticStart: 11-11-2021 End: 47-84-1390lxddv 1 dose topically once daily in the morningLidocaine (Lidocaine Pain Relief) 4 % Adhesive Patch,Medicated Active 1 PATCH TOPICAL Every lwbakya16 November 23, 2021 11:00pmStart: 13-93-5829nutdo 1 dose topically once daily in the morningLidocaine (Lidocaine Pain Relief) 4 % adhesive patch,medicated Active 1 PATCH TOPICAL Every morningAugust 2021 1:51pmStart: 83-74-6369xermf 1 dose topically once daily in the morningLidocaine (Lidocaine Pain Relief) 4 % adhesive patch,medicated Active 1 PATCH TOPICAL Every morningAugus2021 1:51pmStart: 11-10-2021 End: 23-18-1072wfbwd 1 dose topically once dailyLidocaine (Lidocaine Pain Relief) 4 % Adhesive Patch,Medicated Discontinued 1 PATCH TOPICAL Daily 0Augus2021 11:00pm November 11, 2021 12:51pmlidocaine HCL 4 % ptmd Apply to affected area once daily. ActivemetFORMIN hydrochloride 500 mg oral tablet (20 sources)BiguanideStart: 02-12-2022 End: 55-48-9589pcjo 1 tablet by mouth in the morningmetFORMIN (Glucophage) 500 MG tablet Indications: Type 2 diabetes mellitus with other specified comp lication, unspecified whether chcf insulin use (HCC) Take 1 tablet (500 mg) by mouth in the morning and 1 tablet (500 mg) before bedtime. 180 tablet 3 11/17/2023 ActiveStart: 46-88-3888mivz 50 mg by mouth twice dailyMetformin Active 50 MG PO Twice daily January 18, 2017 7:43amStart: 01-18-2017 End: 76-00-3862oana 2 tablets by mouth twice daily at mealtimeMetformin 500 mg Tablet Active 1000 MG PO Twice daily with meals 120 November 23, 2021 11:00pmStart: 01-18-2017 End: 82-89-0123khhy 1000 mg by mouth twice daily at mealtimeMetformin Active 1000 MG PO Twice daily with meals 120 November 23, 2021 11:00pmtake 1 tablet by mouth every twelve hoursmetFORMIN HCl 500 MG 1 tablet with a meal Orally Twice a day ActiveComment on above:Take 500 mg by mouth twice daily with meals. Pt takes 2,000 mg daily Take 1 tablet by mouth once daily.metoprolol tartrate 50 mg oral tablet (20 sources)beta-Adrenergic BlockerStart: 09-21-2023 End: 44-32-6029cadlvdumkf tartrate (Lopressor) 50 MG tablet Indications: Hypertension, unspecified type Take 1.5 tablets (75 mg) by mouth every 12 (twelve) hours 270 tablet 3 11/17/2023 ActiveStart: 31-87-3067zqrtdlduwi tartrate (Lopressor) 50 MG tablet Indications: Hypertension, unspecified type (CMS/HCC) Take 1.5 tablets (75 mg) by mouth every 12 (twelve) hours 135 tablet 3 03/21/2023 ActiveStart: 80-68-2124hrah 1 tablet by mouth twice daily at mealtimemetoprolol tartrate, short acting, (LOPRESSOR) 50 mg tablet TAKE 1 & 1/2 (ONE & ONE-HALF) TABLETS BY MOUTH TWICE DAILY WITH FOOD 01/13/2022 ActiveStart: 55-60-5427lqqh 2 tablets by mouth twice dailyMetoprolol Tartrate 37.5 mg Tablet Active 75 MG PO Twice daily 120 November 23, 2021 11:00pmStart: 38-00-5410zozv 75 mg by mouth twice dailyMetoprolol Tartrate Active 75 MG PO Twice daily 120 November 23, 2021 11:00pmStart: 69-42-0344uqbafhkivj tartrate, short acting, (LOPRESSOR) 50 mg tablet twice daily. 1.5 tablets 2x daily 0 01/05/2018 ActiveStart: 01-18-2017 End: 53-90-2232Hgsruiewky Tartrate 50 MG tablet Discontinued 75 MG PO Twice daily January 18, 2017 12:00am November 25, 2021 3:31pmStart: 01-18-2017 End: 27-48-6109fxgs 75 mg by mouth twice dailyMetoprolol Tartrate Discontinued 75 MG PO Twice daily January 18, 2017 12:00am November 25, 2021 3:31pmtake 1 tablet by mouth twice dailymetoprolol tartrate, short acting, (LOPRESSOR) 25 mg tablet Take 25 mg by mouth twice daily. Activetake 1 tablet by mouth every twenty-four hoursmetoprolol succinate XL (Toprol-XL) 25 MG 24 hr tablet Take by mouth Do not crush or chew. 0 Activetake 1.5 tablets by mouth every twelve hours Metoprolol Tartrate 50 MG 1.5 tablets Orally Twice a day increased for Essential Tremors Activetake 1 tablet by mouth twice daily in the eveningMetoprolol Tartrate 100 MG in am/ 50mg in pm 1 tablet Orally Twice a day increased for Essential Tremors ActiveComment on above:twice daily. 1.5 tablets 2x daily TAKE 1 & 1/2 (ONE & ONE-HALF) TABLETS BY MOUTH TWICE DAILY WITH FOODTake 25 mg by mouth twice daily.mirtazapine 7.5 mg oral tablet (20 sources)Start: 11-10-2021 End: 44-86-4340cdtd 1 tablet by mouth at bedtimemirtazapine (Remeron) 7.5 MG tablet Indications: Anxiety Take 1 tablet (7.5 mg) by mouth at wwjouri48 tablet 3 11/17/2023 ActiveStart: 43-51-6405zsqe 7.5 mg by mouth once daily at bedtime Mirtazapine Active 7.5 MG PO Daily at bedtime 0 November 10, 2021 12:00amStart: 47-75-9537pscn 7.5 mg by mouth once daily at bedtimeMirtazapine Active 7.5 MG PO Daily at bedtime 0 November 10, 2021 12:00amtake 1 tablet by mouth every twenty-four hoursMirtazapine 7.5 MG 1 tablet at bedtime Orally Once a day Active Comment on above:Take 7.5 mg by mouth daily at bedtime.MOUNJARO 7.5 mg/0.5 mL pen injector (1 source)Start: 49-88-4234NTUAIZLJ 7.5 mg/0.5 mL pen injector Inject 7.5 mg subcutaneously. 02/21/2024 ActiveMultiple Vitamins-Minerals (PRESERVISION AREDS 2 PO) (20 sources)Multiple Vitamins-Minerals (PRESERVISION AREDS 2 PO) Take by mouth in the morning and before bedtime. ActiveMultiple Vitamins-Minerals (PRESERVISION AREDS 2 PO) Take by mouth 2 (two) times a day. ActiveMultiple Vitamins-Minerals (PRESERVISION AREDS 2 PO) Take by mouth 2 (two) times a day. 0 Activeomeprazole 20 mg delayed release oral capsule (20 sources)Proton Pump InhibitorStart: 07-71-7009eulw 1 capsule by mouth once dailyomeprazole (PriLOSEC) [address] capsule Indications: Gastroesophageal reflux disease without esophagitis Take 1 capsule (20 mg) by mouth 1 (one) time each day at the same time 90 capsule 3 11/22/2023 ActiveStart: 62-54-8964meap 40 mg by mouth once dailyOmeprazole Active 40 MG PO Daily January 18, 2017 7:43am Start: 01-18-2017 End: 47-10-3406Axbbgdhkdv 40 MG capsule,delayed release(DR/EC) Discontinued 20 MG PO Every morning January 18, 2017 12:00am November 25, 2021 3:31pmStart: 01-18-2017 End: 36-87-1144yuvu 20 mg by mouth once daily in the morningOmeprazole Discontinued 20 MG PO Every morning January 18, 2017 12:00am November 25, 2021 3:31pmComment on above:20 mg once daily. polyethylene glycol 3350 09305 mg powder for oral solution (20 sources)Osmotic LaxativeStart: 11-10-2021 End: 80-31-4923Gkqstrwzdtic Glycol 3350 (Miralax) 17 gram Powder In Packet Active 17 GM PO Twice daily as needed for constipation 04 12November 23, 2021 11:00pmStart: 56-27-8453Vibpylcnnyxj Glycol 3350 (Miralax) 17 gram Powder In Packet Active 17 GM PO Twice daily November 10, 2021 12:00amStart: 11-10-2021 Polyethylene Glycol 3350 (Miralax) 17 gram Powder In Packet Active 17 GM PO Twice daily November 10, 2021 12:00am End: 17-58-6559vihxedncytay glycol, PEG, 3350 (MiraLax) 17 GM/SCOOP powder 1 (one) time each day at the same time ActiveComment on above:Take 17 g by mouth once daily.Take 17 g by mouth once daily. Dissolve dose in 4 - 8 ounces of liquid and take as directed.Polyethylene Glycol 3350 17 Grams (20 sources)Start: 47-15-5795Ktoavaaxwkiw Glycol 3350 17 Grams as directed Orally Twice a day for 1 days Dec, ActiveStart: 47-81-9032Hhvmcbbloslj Glycol 3350 17 Grams as directed Orally Once a day for 1 days Dec, Not-TakingStart: 87-49-5108Cqtla: 08-67-8160hshx 119 g by mouth twice daily Polyethylene Glycol 3350 17 Grams take 119 grams into each gatorade/pedilyte bottle Orally bid for 1 days Dec, ActivePreserVision/Lutein (16 sources)PreserVision/Lutein as directed Orally ActiveTirzepatide (1 source)Start: 75-69-3029Iditjhiidjx (Mounjaro) 7.5 mg/0.5 mL pen injector Active 7.5 MG SUBCUT every week March 04, 2024 12:00am fridaysTirzepatide (Mounjaro) 2.5 MG/0.5ML solution pen-injector (10 sources)Start: 40-04-0350kfcxos 2.5 mg by subcutaneous injection every week Tirzepatide (Mounjaro) 2.5 MG/0.5ML solution pen-injector Indications: Type 2 diabetes mellitus with other specified complication, unspecified whether chcf insulin use (CMS/HCC) Inject 2.5 mg under the skin 1 (one) time per week 2 mL 3 11/17/2023 ActiveStart: 11-15-2023 End: 08-17-6100ghahes 2.5 mg by subcutaneous injection every weekTirzepatide (Mounjaro) 2.5 MG/0.5ML solution pen-injector Indications: Type 2 diabetes mellitus with other specified complication, unspecified whether chcf insulin use (CMS/HCC) Inject 2.5 mg under the skin 1 (one) time per week 2 mL 11/15/2023 11/17/2023 Discontinued (Reorder)Start: 48-85-0547zbsryv 2.5 mg by subcutaneous injection every weekTirzepatide (Mounjaro) 2.5 MG/0.5ML solution pen-injector Indications: Type 2 diabetes mellitus with other specified complication, unspecified whether chcf insulin use (CMS/HCC) Inject 2.5 mg under the skin 1 (one) time per week 2 mL 11/15/2023 ActiveTirzepatide (Mounjaro) 7.5 MG/0.5ML solution auto-injector (13 sources)Start: 85-44-5557dgihse 7.5 mg by subcutaneous injection every week Tirzepatide (Mounjaro) 7.5 MG/0.5ML solution auto-injector Indications: Type 2 diabetes mellitus with other specified complication, without long-term current use of insulin (HCC) Inject 7.5 mg under the skin 1 (one) time per week 6 mL 3 02/21/2024 ActiveStart: 43-66-3234twtjad 7.5 mg by subcutaneous injection every weekTirzepatide (Mounjaro) 7.5 MG/0.5ML solution auto-injector Indications: Type 2 diabetes mellitus with other specified complication, without long-term current use of insulin (CMS/HCC) Inject 7.5 mg under the skin 1 (one) time per week 6 mL 3 02/21/2024 Activetriamcinolone acetonide 0.005 mg/mg topical ointment (20 sources)CorticosteroidStart: 11-23-2023 End: 61-00-3787ogswlycknqvuo (Kenalog) 0.5 % ointment Indications: Atrophic vaginitis Apply topically 2 (two) times a day Use Goodrx coupon Use bid for 2 weeks to vagina 15 g 1 11/23/2023 11/22/2024 Usfbff11 hr venlafaxine 150 mg extended release oral capsule (20 sources)Serotonin and Norepinephrine Reuptake InhibitorStart: 02-15-2023 End: 08-75-1394ajmk 1 capsule by mouth every twenty-four hours in the morning venlafaxine XR (Effexor XR) 150 MG 24 hr capsule Indications: Recurrent major depression in full remission Take 1 capsule (150 mg) by mouth in the morning. 90 capsule 3 11/17/2023 ActiveStart: 01-10-2023 End: 28-71-9284hlvh 1 tablet by mouth once dailyvenlafaxine (Effexor) 75 MG tablet Indications: Recurrent major depression in full remission Take 1tablet (75 mg) by mouth Daily 90 tablet 3 11/17/2023 ActiveStart: 01-10-2023 End: 41-78-1390WTPHCZOYQWP ER 150 MG TABLET,EXTENDED RELEASE 24 HRStart: 01-20-2022 End: 25-30-4728djpc 1 capsule by mouth every twenty-four hoursvenlafaxine ER (EFFEXOR XR) 75 mg 24 hr capsule Take 75 mg by mouth. 0 01/20/2022 01/20/2023 DiscontinuedStart: 81-64-1356fruh 1 capsule by mouth once daily in the evening Venlafaxine 75 mg Capsule,Extended Release 24hr Active 75 MG PO Every evening 30 November 11:00pmStart: 11-05-2021 End: 03-63-9387rhfd 1 capsule by mouth once daily in the morningvenlafaxine ER (EFFEXOR XR) 150 mg 24 hr capsule Take 150 mg by mouth every morning. 05/01/2023 ActiveStart: 59-98-8687kkua 150 mg by mouth once daily in the morning Venlafaxine Active 150 MG PO Every morning November 05, 2021 12:00amStart: 64-20-4105isde 75 mg by mouth once daily in the eveningVenlafaxine Active 75 MG PO Every evening November 05, 2021 12:00amStart: 11-05-2021 End: 83-42-4259uqhl 1 tablet by mouth once dailyVenlafaxine 75 mg Tablet Discontinued 75 MG PO Daily after supper November 04, 2021 11:00pm November 05, 2021 12:44pmStart: 11-05-2021 End: 46-84-5867ptiq 1 tablet by mouth once daily in the eveningVenlafaxine 75 mg tablet extended release 24hr Discontinued 75 MG PO Every evening November 04, 2021 11:00pm November 25, 2021 3:31pmStart: 24-82-5843ujsq 75 mg by mouth twice dailyVenlafaxine Active 75 MG PO Twice daily January 18, 2017 7:43am Start: 01-18-2017 End: 69-23-0580nsob 2 tablets by mouth once dailyVenlafaxine 75 MG tablet Discontinued 150 MG PO Daily January 18, 2017 12:00am November 05, 2021 1 2:37pmStart: 01-18-2017 End: 19-65-6362qfkq 150 mg by mouth once dailyVenlafaxine Discontinued 150 MG PO Daily January 18, 2017 12:00am November 05, 2021 12:37pm End: 32-87-5161szkgpjelajl ER (EFFEXOR XR) 150 mg 24 hr capsule 150 mg once daily. 0 01/20/2023 Discontinuedtake 1 tablet by mouth every twelve hours Venlafaxine HCl 25 MG 1 tablet with food Orally Twice a day Activetake 1 tablet by mouth twice dailyEffexor 50 MG 1 tablet Orally Twice a day for 30 day(s) ActiveComment on above:150 mg once daily. Take 75 mg by mouth once daily.Take 75 mg by mouth.Take 150 mg by mouth every morning.Vit C,Z-Ld-Zerpz-Lutein-Zeaxan (Preservision Areds-2) 250-90-40-1 mg capsule (1 source)Start: 82-33-4148Pzd C,I-Mf-Vlhdi-Lutein-Zeaxan (Preservision Areds-2) 250-90-40-1 mg capsule Active 1 TAB PO Twice daily March 04, 2024 12:00am vit C/vit E ac/lut/copper/zinc (PRESERVISION LUTEIN ORAL) (14 sources)vit C/vit E ac/lut/copper/zinc (PRESERVISION LUTEIN ORAL) Take by mouth twice daily. Activevit C/vit E ac/lut/copper/zinc (PRESERVISION LUTEIN ORAL) Take by mouth twice daily. 0 ActiveComment on above:Take by mouth twice daily.vitamin b12 0.5 mg oral tablet (20 sources)Vitamin R43Ofwph: 60-21-5110pnoe 2 tablets by mouth once daily cyanocobalamin (VITAMIN B-12) 500 mcg tablet Take 2 tablets by mouth once daily. 02/15/2022 ActiveStart: 09-25-4243rqjd 1 tablet by mouth once daily Cyanocobalamin (Vitamin B-12) 1,000 mcg Tablet Active 1000 MCG PO Daily November 23, 2021 11:00pmStart: 11-04-2021 End: 55-59-4758hawt 1 tablet by mouth once dailyCyanocobalamin (Vitamin B-12) (Vitamin B-12) 2,000 mcg Tablet Extended Release Discontinued 2000 MCG PO Daily November 03, 2021 11:00pm November 25, 2021 3:32pmStart: 97-40-3881zyqw 1 tablet by mouth once dailyCyanocobalamin (Vitamin B-12) (Vitamin B-12) 2,000 mcg Tablet Extended Release Active 2000 MCG PO Daily November 04, 2021 12:00am Start: 11-06-2020 End: 32-68-5535rnjj 1 tablet by mouth once dailycyanocobalamin (VITAMIN B-12) 500 mcg tablet Take 1 tablet by mouth once daily. 0 11/06/2020 02/15/2022 Discontinued (Adjust Sig - Block E-Cancel)Comment on above:Take 1 tablet by mouth once daily.Take 2 tablets by mouth once daily.Vitamin B12 1000 MCG (5 sources)take 1 tablet by mouth once dailyVitamin B12 1000 MCG 1 tablet Orally Once a day ActiveVitamin D 2000 UNIT (16 sources)take 1 tablet by mouth once dailyVitamin D 2000 UNIT 1 tablet Orally Once a day ActiveVitamin D 25 MCG (1000 UT) (2 sources)take 1 tablet by mouth once dailyVitamin D 25 MCG (1000 UT) 1 tablet Orally Once a day Activewarfarin sodium 2 mg oral tablet (20 sources)Vitamin K AntagonistStart: 01-06-6343lpsx 3 mg by mouth once daily Warfarin 2 MG tablet Active 3 MG PO Daily March 04, 2024 12:00am 3mg , Tue, Tue 2m Sun, Min, Thur, SatStart: 01-25-2024 End: 61-95-5192rsltvsaj (Coumadin) 3 MG tablet Indications: History of DVT (deep vein thrombosis) Take as directedper weekly INR report 90 tablet 3 01/25/2024 01/24/2025 ActiveStart: 02-11-2023 End: 79-12-1560fnlfnunf (Coumadin) 4 MG tablet Indications: History of DVT (deep vein thrombosis) Take every . Pt takes Warfarin 2mg daily except 13 tablet 1 02/11/2023 11/17/2023 Discontinued (Reorder)Start: 12-57-7972vvykkyhn (COUMADIN) 4 mg tablet 06/15/2022 ActiveStart: 11-11-2021 End: 15-99-6024imad 1 tablet by mouth onceWarfarin (Jantoven) 1 mg Tablet Discontinued 1 MG PO Once 0 November 10, 2021 11:00pm November 25, 2021 3:31pmStart: 08-11-2349qvup 1 tablet by mouth onceWarfarin (Jantoven) 1 mg Tablet Active 1 MG PO Once 0 November 11, 2021 12:00amStart: 17-37-3090ttcb 1 tablet by mouth onceWarfarin (Jantoven) 1 mg Tablet Active 1 MG PO Once 0 November 11, 2021 12:00amStart: 01-18-2017 End: 14-38-2374jtsr 1 tablet by mouth once dailywarfarin (Coumadin) 2 MG tablet Indications: History of DVT (deep vein thrombosis) take 1 tablet bymouth once daily EXCEPT TUESDAY (ON TUESDAY TAKE WARFARIN 4MG) 90 tablet 3 11/17/2023 Active Comment on above:1 tablet once daily. Completed/Discontinued Medications MedicationDrug Class(es)DatesSig (Normalized)Sig (Original)ascorbic acid 226 mg / cuprous oxide 0.8 mg / dl-alpha tocopheryl acetate 200 unt / lutein 5 mg / zi nc oxide 34.8 mg oral capsule (9 sources)Vitamin CStart: 02-22-2017 End: 46-79-9508Fxi R-P-Xqphuq-Zinc-Lutein (Preservision Lutein) 226 mg-200 unit -5 mg-0.8 mg Capsule Discontinued 1 TAB PO As Directed February 22, 2017 12:00am July 10, 2017 5:45pmtake 2 capsules by mouth every twenty-four hours PreserVision/Lutein - 2 capsules Orally daily Activebiotin 1 mg chewable tablet (20 sources)Start: 01-18-2017 End: 87-41-0462ipzn 1 tablet by mouth once dailyBiotin 1,000 mcg Tablet,Chewable Discontinued 1000 MCG PO Daily January 18, 2017 12:00am November 04, 2021 4:59pm End: 02-51-7794avyj 1 capsule by mouth in the morningbiotin 5 MG capsule Take 5 mg by mouth in the morning. Activetake 1 tablet by mouth once dailyBiotin 10 MG 1 tablet Orally Once a day for 30 day(s) Not-TakingComment on above:Take 5 mg by mouth once daily.cefdinir 300 mg oral capsule (6 sources)Cephalosporin AntibacterialStart: 11-11-2021 End: 26-40-1168cpvu 1 capsule by mouth twice dailyCefdinir 300 mg Capsule Discontinued 300 MG PO Twice daily 4 2 November 10, 2021 11:00pm November 25, 2021 3:31pmStart: 87-43-6532qllo 300 mg by mouth twice dailyCefdinir Active 300 MG PO Twice daily 4 2 November 11, 2021 12:00amStart: 73-86-0345crby 300 mg by mouth twice dailyCefdinir Active 300 MG PO Twice daily 4 2 November 11, 2021 12:00amcyclobenzaprine hydrochloride 5 mg oral tablet (11 sources)Muscle RelaxantStart: 10-19-2021 End: 26-01-6401dgyx 1 tablet by mouth three times daily as needed for muscle spasmsCyclobenzaprine 5 mg tablet Discontinued 5 MG PO Three times daily as needed for muscle spasm October 18, 2021 11:00pm November 04, 2021 5:00pmtake 1 tablet by mouth every twenty-four hoursdocusate sodium 50 mg / sennosides, care home 8.6 mg oral tablet (6 sources)Start: 11-10-2021 End: 90-13-2068nqea 2 tablets by mouth twice dailySennosides-Docusate Sodium (Stool Softener-Stimulant Laxat) 8.6-50 mg Tablet Discontinued 2 TAB PO Twice daily 0 November 09, 2021 11:00pm November 25, 2021 3:31pmStart: 11-10-2021 take 2 tablets by mouth twice dailySennosides-Docusate Sodium (Stool Softener- Stimulant Laxat) 8.6-50 mg Tablet Active 2 TAB PO Twice daily 0 November 10, 2021 12:00amStart: 97-85-4632fkio 2 tablets by mouth twice dailySennosides- Docusate Sodium (Stool Softener-Stimulant Laxat) 8.6-50 mg Tablet Active 2 TAB PO Twice daily 0 November 10, 2021 12:00amezetimibe 10 mg oral tablet (20 sources)Dietary Cholesterol Absorption InhibitorStart: 02-22-2017 End: 66-38-8207ryrf 1 tablet by mouth once dailyEzetimibe (Zetia) 10 mg Tablet Discontinued 10 MG PO Daily February 22, 2017 12:00am July 10, 2017 5:44pm furosemide 20 mg oral tablet (20 sources)Loop DiureticStart: 03-01-2019 End: 91-55-5853llvl 1 tablet by mouth once dailyfurosemide (LASIX) 20 mg tablet Take 1 tablet by mouth once daily. 0 03/01/2019 02/15/2022 Discontinued (Discontinued by another Health Care Provider)Furosemide ActiveComment on above: Take 1 tablet by mouth once daily.gabapentin 300 mg oral capsule (7 sources)Anti-epileptic AgentStart: 01-26-2022 End: 69-17-1458yuua 1 capsule by mouth once daily at bedtimegabapentin (NEURONTIN) 300 mg capsule Take 300 mg by mouth daily at bedtime. 0 01/26/2022 01/20/2023 Discontinued (Course of therapy completed)take 1 capsule by mouth every twenty-four hoursGabapentin 300 MG 1 capsule Orally Once a day Active Comment on above:Take 300 mg by mouth daily at bedtime.Lactobacillus acidophilus (4 sources) End: 52-48-8917Jsggcqmfybqxg acidophilus (PROBIOTIC ORAL) Take by mouth. 0 02/15/2022 Discontinued (Course of therapy completed)Lactobacillus acidophilus (PROBIOTIC ORAL) Take by mouth. 0 ActiveComment on above:Take by mouth. MEDICATION, NON-DATABASE (7 sources) End: 90-19-6690QKQAZWVUTC, NON-DATABASE 750 mg two times a day. Antiacid extra strength 03/06/2024 DiscontinuedMEDICATION, NON-DATABASE 750 mg two times a day. Antiacid extra strength ActiveMEDICATION, NON-DATABASE 750 mg two times a day. Antiacid extra strength 0 ActiveComment on above:750 mg two times a day. Antiacid extra strengthMOUNJARO 5 mg/0.5 mL pen injector (1 source)Start: 01-18-2024 End: 79-92-9646ymondu 5 mg by subcutaneous injection every weekMOUNJARO 5 mg/0.5 mL pen injector INJECT 5MG SUBCUTANEOUSLY ONCE A WEEK 01/18/2024 03/06/2024 DiscontinuedNystatin (4 sources)Polyene Antifungal End: 01-92-9719OQIAQYBO ORAL Take by mouth. 0 02/15/2022 Discontinued (Course of therapy completed)NYSTATIN ORAL Take by mouth. 0 ActiveComment on above:Take by mouth.oxyCODONE hydrochloride 5 mg oral tablet (16 sources)Opioid AgonistStart: 11-10-2021 End: 13-70-8439sckx 1 tablet by mouth every six hours as needed for pain Oxycodone 5 mg Tablet Discontinued 5 MG PO Every 6 hours as needed for pain 10 7 November 24, 2021 March 04, 2024 8:12pmStart: 28-20-2669aurr 5 mg by mouth every six hoursOxycodone Active 5 MG PO Every 6 hours 0 November 10, 2021 Start: 56-66-5756sngm 5 mg by mouth every six hoursOxycodone Active 5 MG PO Every 6 hours 0 November 10tart: 10-19-2021 End: 66-35-0851jupa 1 tablet by mouth three times daily as needed for pain Oxycodone (Roxicodone) 5 mg tablet Discontinued 5 MG PO Three times daily as needed for pain 7 3 October 19, 2021 November 04, 2021 5:03pmmicroencapsulated potassium chloride 10 meq extended release oral tablet (4 sources)Start: 11-21-2020 End: 55-77-3902aochfuzeo chloride ER (K-DUR, KLOR-CON) 10 mEq tablet Take 10 mEq by mouth. Pt takes every other day 0 11/21/2020 02/15/2022 DiscontinuedComment on above:Take 10 mEq by mouth. Pt takes every other day pravastatin sodium 40 mg oral tablet (20 sources)HMG-CoA Reductase InhibitorStart: 01-18-2017 End: 50-88-4133wjuk 1 tablet by mouth once dailyPravastatin 40 mg Tablet Discontinued 40 MG PO Daily January 18, 2017 12:00am November 04, 2021 5:12pm take 1 tablet by mouth once dailyPravastatin 10 mg one tab orally daily Active SITagliptin 50 mg oral tablet (20 sources)Dipeptidyl Peptidase 4 InhibitorStart: 05-02-2023 End: 20-76-4584eews 1 tablet by mouth once daily in the morningJANUVIA 50 mg tablet Take 50 mg by mouth every morning. 05/02/2023 03/06/2024 Discontinued Start: 01-20-2023 End: 32-65-1923jluq 0.5 tablet by mouth in the morningJanuvia 100 MG tablet Indications: Diabetic peripheral neuropathy associated with type 2 diabetes me llitus (CMS/HCC) Take 0.5 tablets (50 mg) by mouth in the morning. Take 50 mg by mouth in the morning.. 90 tablet 1 01/20/2023 11/15/2023 DiscontinuedStart: 06-12-2022 End: 25-28-5485FDEHDQH 100 mg tablet Take 50 mg by mouth once daily. 0 06/12/2022 06/23/2023 Discontinued End: 67-25-4449roay 1 tablet by mouth once dailySITagliptin phosphate (JANUVIA) 50 mg tablet Take 50 mg by mouth once daily. 0 07/08/2022 Discontinuedtake 1 tablet by mouth every twenty-four hoursComment on above:Take 100 mg by mouth once daily.Take 50 mg by mouth once daily.Take 50 mg by mouth every morning. solifenacin succinate 5 mg oral tablet (20 sources)Cholinergic Muscarinic AntagonistStart: 02-22-2017 End: 10-71-2071szas 1 tablet by mouth once dailySolifenacin (Vesicare) 5 mg Tablet Discontinued 5 MG PO Daily February 22, 2017 12:00am November 04, 2021 5:12pmVESIcare 5 MG Orally twice a day ActiveTirzepatide (Mounjaro) 5 MG/0.5ML solution auto-injector (4 sources)Start: 01-18-2024 End: 60-60-8190hnklts 5 mg by subcutaneous injection every weekTirzepatide (Mounjaro) 5 MG/0.5ML solution auto-injector Indications: Type 2 diabetes mellitus withother specified complication, unspecified whether chcf insulin use (CMS/HCC) Inject 5 mg underthe skin 1 (one) time per week 2 mL 01/18/2024 02/21/2024 DiscontinuedStart: 09-70-2638revgzi 5 mg by subcutaneous injection every weekTirzepatide (Mounjaro) 5 MG/0.5ML solution auto-injector Indications: Type 2 diabetes mellitus withother specified complication, unspecified whether 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 (CMS/HCC) Inject 5 mg underthe skin 1 (one) time per week 2 mL 01/18/2024 Activetrospium chloride 20 mg oral tablet (7 sources)Cholinergic Muscarinic AntagonistStart: 07-10-2017 End: 80-00-6954ekht 1 tablet by mouth twice dailyTrospium 20 mg tablet Discontinued 20 MG PO Twice daily July 09, 2017 11:00pm November 04, 2021 5 :12pmVit C,J-Lh-Vqrgw-Lutein-Zeaxan (Preservision Areds-2) 176-378-40-1 oc-pqvt-vd-mg Capsule (7 sources)Start: 01-18-2017 End: 88-79-5945inmy 1 tablet by mouth once daily at bedtimeVit C,J-Dy-Tepwr-Lutein-Zeaxan (Preservision Areds-2) 513-461-28-1 hs-nceo-dd-mg Capsule Discontinued 1 TAB PO every day in the morning and at bedtime January 18, 2017 7:43am July 10, 2017 6:45pmStart: 01-18-2017 End: 06-94-9671roak 1 tablet by mouth once daily at bedtimeVit C,K-Lr-Bbjed-Lutein-Zeaxan (Preservision Areds-2) 394-524-15-1 ns-omle-rm-mg Capsule Discontinued 1 TAB PO every day in the morning and at bedtime January 18, 2017 12:00am July 10, 2017 5:45pmStart: 01-18-2017 End: 71-34-0447jhyx 1 tablet by mouth once daily at bedtimeVit C,M-Yu-Mraqa-Lutein-Zeaxan (Preservision Areds-2) 193-655-56-1 hf-jsop-oa-mg Capsule Discontinued 1 TAB PO every day in the morning and at bedtime January 18, 2017 1:00am July 10, 2017 6:45pmVit C,M-Tb-Cnnsu-Lutein-Zeaxan (Preservision Areds-2) 250-90-40-1 mg Capsule (6 sources)Start: 11-04-2021 End: 63-00-5857Cae C,F-Gw-Lgmmk-Lutein-Zeaxan (Preservision Areds-2) 250-90-40-1 mg Capsule Discontinued 1 TAB PO Twice daily November 03, 2021 11:00pm November 25, 2021 3:32pmStart: 11-04-2021 End: 81-52-5079Mew C,H-Ov-Kmwrh-Lutein-Zeaxan (Preservision Areds-2) 250-90-40-1 mg Capsule Discontinued 1 TAB PO Twice daily November 04, 2021 12:00am November 25, 2021 4:32pmStart: 51-18-6938Ynp C,W-It-Vgcbm-Lutein-Zeaxan (Preservision Areds-2) 250-90-40-1 mg Capsule Active 1 TAB PO Twice daily November 04, 2021 12:00amWarfarin - Pharmacy Dosing (Coumadin Pharmacy Dosing) (6 sources)Start: 11-10-2021 End: 79-52-5055Zfblsrxz - Pharmacy Dosing (Coumadin Pharmacy Dosing) Discontinued 1 ea miscellaneous Once as needed 0 November 09, 2021 11:00pm November 25, 2021 3:32pmStart: 11-10-2021 End: 77-75-5294Eueednpl - Pharmacy Dosing (Coumadin Pharmacy Dosing) Discontinued 1 ea miscellaneous Once 0 2021 11:00pm November 25, 2021 3:32pmStart: 11-10-2021 End: 77-93-3625Viabtpma - Pharmacy Dosing (Coumadin Pharmacy Dosing) Discontinued 1 ea miscellaneous Once 0 2021 12:00am November 25, 2021 4:32pmStart: 59-54-2207Rvinluku - Pharmacy Dosing (Coumadin Pharmacy Dosing) Active 1 ea miscellaneous Once 0 October 12:00am Problems Active Problems Problem ClassificationProblemDateDocumented DateEpisodic/ChronicAbdominal pain (20 sources)Abdominal pain; Translations: [Unspecified abdominal pain]11-09-2021 EpisodicAcquired foot deformities (3 sources)Hammer toe; Translations: [Other hammer toe(s) (acquired), right foot]00-11-8612ZgqdzadZofwqctjunbned/social admission (20 sources)Worried well; Translations: [Person with feared health complaint in whom no diagnosis is made]50-71-4307XaogvzsvXuvetxm disorders (20 sources)Mixed anxiety and depressive disorder; Translations: [Other specified anxiety disorders]Onset: 04-34-2194IwseqyrAvdkykpb atherosclerosis and other heart disease (20 sources)Coronary atherosclerosis; Translations: [Atherosclerotic heart disease of [place] coronary artery without angina pectoris]Onset: 12-20-2022 24-65-1411WquhiobWyqvntccwt and other anemia (4 sources)Anemia; Translations: [Anemia, unspecified]70-08-5628Eyfzoenb Deficiency and other anemia (2 sources)Anemia, unspecified; Translations: [Anemia, unspecified]11-25-2021 EpisodicDiabetes mellitus with complications (20 sources)Neuropathy due to diabetes mellitus; Translations: [Type 2 diabetes mellitus with diabetic neuropathy, unspecified]Onset: ChronicDiabetes mellitus without complication (12 sources)Diabetes mellitus; Translations: [Type 2 diabetes mellitus without complications]50-35-9737WnjxrgnOlqzmuvn of mouth; excluding dental (1 source)Excessive salivation; Translations: [Disturbances of salivary secretion]42-43-1324TogsnslkUmaeyhbsv of lipid metabolism (20 sources)Hyperlipidemia; Translations: [Hyperlipidemia, unspecified]Onset: 812468-33-6522VayzkxiQ Codes: Fall (6 sources)Fall; Translations: [Unspecified fall, initial encounter]11-12-2021 EpisodicEsophageal disorders (20 sources)Esophageal dysmotility; Translations: [Dyskinesia of esophagus] Onset: 038119-11-9361ZfcaxnxIizkdhaij hypertension (10 sources)Hypertensive disorder; Translations: [Essential (primary) hypertension]20-22-8928TtcfoffPtkmajwcmbhxd symptoms and ill-defined conditions (20 sources)Urge incontinence of urine; Translations: [Urge incontinence]Onset: 214049-53-8531RdiejejNeanjeljblhgu symptoms and ill-defined conditions (4 sources)Frequency of micturition; Translations: [FREQUENCY OF MICTURITION] Onset: 01-84-4973EejpbhgpCoplbcue; including migraine (20 sources)Episodic paroxysmal hemicrania; Translations: [Episodic paroxysmal hemicrania, not intractable]Onset: 581794-73-9349PygfjlyNryspembnxi (20 sources)Hemorrhoids; Translations: [Unspecified hemorrhoids]EpisodicImmunity disorders (2 sources)Secondary immune deficiency disorder; Translations: [Immunodeficiency due to conditions classified elsewhere (CMS/[facility])]71-14-1111SxxjdiyHljznve and fatigue (1 source)Fatigue; Translations: [Other fatigue]EpisodicMenopausal disorders (20 sources)Atrophic vaginitis; Translations: [Postmenopausal atrophic vaginitis]Onset: 956437-18-2011LebpccyVxro disorders (20 sources)Depressive disorder; Translations: [Depression]Onset: 12-20-2022 37-07-7090ArzabodFqztoef (9 sources)Onychomycosis; Translations: [Tinea unguium]91-69-7898Vijvcsmt Nutritional deficiencies (20 sources)Vitamin D deficiency; Translations: [Vitamin D deficiency, unspecified]Onset: 042488-86-5464OpaxdfeZrfpxzqvbygabd (20 sources)Osteoarthritis; Translations: [Osteoarthrosis, unspecified whether generalized or localized, lower leg]Onset: 083045-58-7382Zpdvzns Osteoporosis (20 sources)Osteoporosis; Translations: [Age-related osteoporosis without current pathological fracture]Onset: 703694-85-5694DcuqjgoFzhsk aftercare (13 sources)Encounter for therapeutic drug level monitoring; Translations: [Medication monitoring encounter Z51.81]Onset: 12-10-2020 Resolved: 44-21-5661NfnemsvzRbaeh and unspecified benign neoplasm (20 sources)Benign neoplasm of cerebral meninges; Translations: [Benign neoplasm of cerebral meninges]Onset: 999870-87-8949NwqyzzkMfpln circulatory disease (2 sources)Spider nevus; Translations: [Nevus, non-neoplastic]01-60-9502Cplzxgfc Other connective tissue disease (4 sources)Repeated falls; Translations: [History of fall]00-89-6693Tybnqhwm Other connective tissue disease (3 sources)Pain in both feet; Translations: [Pain in right foot]02-16-2024 EpisodicOther fractures (14 sources)Compression fracture ; Translations: [Compression fracture] 32-40-9799CgktuoqiLakle fractures (1 source)Compression fracture of lumbar spine; Translations: [Collapsed vertebra, not elsewhere classified, lumbar region, initial encounter for fracture]40-54-8211QylgreboWeewj gastrointestinal disorders (20 sources)Dysphagia; Translations: [Dysphagia, unspecified]00-76-8927Wxfomnhn Other gastrointestinal disorders (1 source)Dysphagia, unspecified; Translations: [Dysphagia]EpisodicOther hereditary and degenerative nervous system conditions (20 sources)Impaired cognition; Translations: [Mild cognitive impairment, so stated]Onset: 828955-35-7684NizqqkcAmmtt inflammatory condition of skin (2 sources)Seborrheic dermatitis; Translations: [Other seborrheic dermatitis] 21-41-2517DoajxdssZoich injuries and conditions due to external causes (7 sources)Contusion; Translations: [Other injury of unspecified body region, initial encounter]59-06-1556DjvhowynJbjpn injuries and conditions due to external causes (1 source)Injury of head; Translations: [Unspecified injury of head, initial encounter]47-84-5338DclleryfLvsaj lower respiratory disease (20 sources)Fibrosis of lung; Translations: [Pulmonary fibrosis, unspecified] Onset: 328550-31-8663TzmjuhhPquah nervous system disorders (4 sources)Neuropathy; Translations: [Polyneuropathy, unspecified]02-16-2024 ChronicOther nervous system disorders (1 source)Unresponsive ; Translations: [Other symptoms and signs involving cognitive functions and awareness]EpisodicOther nutritional; endocrine; and metabolic disorders (20 sources)Body mass index 40+ - severely obese; Translations: [Body mass index (BMI) 40.0-44.9, adult]ChronicOther nutritional; endocrine; and metabolic disorders (8 sources)Obese class I; Translations: [Obesity, unspecified]Onset: 07-08-2022 09-04-8608RsibbikGoqcp nutritional; endocrine; and metabolic disorders (20 sources)Morbid obesity; Translations: [Morbid (severe) obesity due to excess calories]Onset: 606880-58-5960FykitvyTihpm skin disorders (2 sources)Lentiginosis; Translations: [Other melanin hyperpigmentation] 79-85-4596OvadqyfbMgxap skin disorders (2 sources)Seborrheic keratosis; Translations: [Other seborrheic keratosis] 63-83-6625VjtkyiqtOoiconftb`s disease (20 sources)Parkinson's disease; Translations: [Parkinson's disease]Onset: 60-14-9544HcdgcfbKhdqhtoco`s disease (1 source)Parkinson`s disease; Translations: [Parkinson's disease without dyskinesia, with fluctuating manifestations (HCC)]Onset: 84-12-6338Gxhbcjqpwi and visceral atherosclerosis (20 sources)Peripheral vascular disease; Translations: [Peripheral vascular disease, unspecified]Onset: 301938-53-4855QzliuchQgwmaljy codes; unclassified (1 source)Daytime somnolence; Translations: [Other hypersomnia]ChronicResidual codes; unclassified (4 sources)Obstructive sleep apnea (adult) (pediatric); Translations: [OBSTRUCTIVE SLEEP APNEA]Onset: 43-82-4338GpowazjVosfigbx codes; unclassified (4 sources)Sleep apnea, unspecified; Translations: [SLEEP APNEA UNSPECIFIED] Onset: 80-49-9908CniuwezZscgkhdm codes; unclassified (20 sources)Sleep apnea; Translations: [Sleep apnea, unspecified]Onset: 505015-93-1278KjizzwjEcswknmj codes; unclassified (20 sources)Obstructive sleep apnea syndrome; Translations: [Obstructive sleep apnea (adult) (pediatric)]Onset: 191796-24-1073GxezgcuJfxvtxge codes; unclassified (20 sources)Hypersomnia; Translations: [Hypersomnia, unspecified]Onset: 410110-19-4473LqqdqofTfahhbgs codes; unclassified (4 sources)Altered mental status, unspecified; Translations: [ALTERED MENTAL STATUS UNSPECIFIED]Onset: 67-54-3202ZrsjkneuCrvbuur detachments; defects; vascular occlusion; and retinopathy (20 sources)Age related macular degeneration; Translations: [Unspecified macular degeneration]Onset: 171374-05-1719FrssbbxPbxknucryog; intervertebral disc disorders; other back problems (20 sources)Backache; Translations: [Dorsalgia, unspecified]78-96-8743Lowwbwpb Thyroid disorders (20 sources)Hypothyroidism; Translations: [Hypothyroidism, unspecified]Onset: 585135-18-9296ZtakauyLirrfkfrpeha (1 source)NO BBPP54-91-8887Kkbrlumlccfa (1 source)Low back pain, unspecified; Translations: [Low back pain, unspecified] Onset: 87-58-0390Axrajouyjvvb (1 source)Other low back pain; Translations: [Other low back pain]Onset: 02-26-2024 Past or Other Problems Problem ClassificationProblemDateDocumented DateEpisodic/ChronicCalculus of urinary tract (20 sources)History of calculus of kidney; Translations: [Personal history of urinary calculi]Onset: 034609-48-9753YhmhywntUojraguasax and hemorrhagic disorders (20 sources)Acquired coagulation factor inhibitor disorder; Translations: [Other hemorrhagic disorder due to intrinsic circulating anticoagulants, antibodies, or inhibitors]Onset: 09-29-2020 Resolved: 908729-52-3202FcacufkUinernjordkpr and screening for infectious disease (20 sources)Needs influenza immunization; Translations: [Encounter for immunization]Onset: 662291-44-4076DdkjwleqPykhrebnkcw deficiencies (2 sources)Cobalamin deficiency; Translations: [Deficiency of other specified B group vitamins]08-21-0940TulggweiWuwod aftercare (20 sources)Long-term current use of anticoagulant; Translations: [FDC (current) use of anticoagulants]Onset: 841055-93-5604EtcehnvaMmnfh aftercare (12 sources)FDC (current) use of anticoagulants; Translations: [Long-term (current) use of anticoagulants]Onset: 276339-96-2467ApayinqlKllnt aftercare (20 sources)Anticoagulant effect; Translations: [FDC (current) use of anticoagulants]Onset: 737972-99-7812YmqcjywwXkdqa connective tissue disease (20 sources)Recurrent falls ; Translations: [Repeated falls]Onset: 05-21-2020 Resolved: 963843-01-2148KujcixfvWerfe diseases of veins and lymphatics (20 sources)Peripheral venous insufficiency; Translations: [Venous insufficiency (chronic) (peripheral)]Onset: 900399-40-7070XwsomzbeStnie gastrointestinal disorders (20 sources)Esophageal dysphagia; Translations: [Other dysphagia]Onset: 11-01-2016 Resolved: 930206-59-5688GscfqocbZlpbh gastrointestinal disorders (20 sources)Incontinence of feces; Translations: [Full incontinence of feces] Onset: 06-19-2019 Resolved: 677485-68-8196JvzuecshOmsgv lower respiratory disease (20 sources)Snoring; Translations: [Snoring]Onset: 586017-84-9146Tiaarvru Phlebitis; thrombophlebitis and thromboembolism (20 sources)Acute embolism and thrombosis of unspecified deep veins of unspecified lower extremity; Translations: [H/O: Deep vein thrombosis]Onset: 818354-32-5232PzrgwnxeQhhiplbf codes; unclassified (20 sources)Inadequate sleep hygiene; Translations: [Inadequate sleep hygiene] Onset: 415045-48-2155SxgxbsahHizmialz codes; unclassified (20 sources)Amnesia; Translations: [Other amnesia]Onset: EpisodicUrinary tract infections (20 sources)Urinary tract infectious disease; Translations: [Urinary tract infection, site not specified]Onset: 343909-83-0053Oraehsje Results Test NameValueInterpretationReference RangeFacilityALL PROTIME/INRon 10-06-2024 Interpretation and review of laboratory resultsAbnormalST. [facility] HealthcareMLR INR1.2 [facility] HealthcareMLR PROTHROMBIN TIME15.2HChildren's Hospital of Wisconsin– MilwaukeeCALL doctor L9755 tel. [phone], FAX: [phone] CALL doctor L9755 tel. [phone], FAX: [phone] [facility]YNCST[facility] HealthcareProthrombin Timeon 43-97-7773MSA Coag (PPP) [Relative time]1.2 {INR}NormalUniversity Of Colorado HospitalComment on above:Order Comment: CALL doctor L9755 tel. [phone], FAX: [phone] CALL doctor L9755 tel. [phone], FAX: [phone] By: #### PT #### [facility] [address] [place] [address] IJ Coag (PPP) [Time]15.2 sCritically high12.3-14.9[facility] HospitalComment on above:Order Comment: CALL doctor L9755 tel. [phone], FAX: [phone] CALL doctor L9755 tel. [phone], FAX: [phone] By: #### PT #### [facility] [address] [place] [address] ZAT With Platelet and Differentialon 22-02-0365Wopujrkev (Bld) [#/Vol]0.0 10*3/uLNormal0.0-0.2MChildren's Hospital ColoradoComment on above: Order Comment: CALL doctor L9755 tel. [phone], FAX [phone] CALL doctor L9755 tel. [phone], FAX [phone] By: #### CBCWD #### [facility] [address] [place] [address] Uqkmniexq/100 WBC (Bld)0.2 %[facility] Comment on above:Order Comment: CALL doctor L9755 tel. [phone], FAX [phone] CALL doctor L9755 tel. [phone], FAX [phone] By: #### CBCWD #### [facility] [address] [place] [address] Cbjcmzttldv (Bld) [#/Vol]0.2 10*3/uLNormal0.0-0.7[facility] HospitalComment on above:Order Comment: CALL doctor L9755 tel. [phone], FAX [phone] CALL doctor L9755 tel. [phone], FAX [phone] By: #### CBCWD #### [facility] [address] [place] [address] Mmdgcjqbxsy/100 WBC (Bld)1.8 %[facility] Comment on above:Order Comment: CALL doctor L9755 tel. [phone], FAX [phone] CALL doctor L9755 tel. [phone], FAX [phone] By: #### CBCWD #### [facility] [address] [place] [address] Obiaqyvvioa distribution width (RBC) [Ratio]15.7 %Critically high 11.5-14.5[facility] HospitalComment on above:Order Comment: CALL doctor L9755 tel. [phone], FAX [phone] CALL doctor L9755 tel. [phone], FAX [phone] By: #### CBCWD #### [facility] [address] [place] [address] Yasriiqgau (Bld) [Volume fraction]36.9 %Low37.0-47.0[facility] HospitalComment on above:Order Comment: CALL doctor L9755 tel. [phone], FAX [phone] CALL doctor L975 tel. [phone], FAX [phone] By: #### CBCWD #### [facility] [address] [place] [address] Aqwtnydgvr (Bld) [Mass/Vol]12.2 g/zJIbdtnp46.0-16.0[facility] HospitalComment on above:Order Comment: CALL doctor L9755 tel. [phone], FAX [phone] CALL doctor L9755 tel. [phone], FAX [phone] By: #### CBCWD #### [facility] [address] [place] [address] Lorvmmydscf (Bld) [#/Vol]1.9 10*3/uLNormal1.0-4.8[facility] HospitalComment on above:Order Comment: CALL doctor L9755 tel. [phone], FAX [phone] CALL doctor L9755 tel. [phone], FAX [phone] By: #### CBCWD #### [facility] [address] [place] [address] Bratyjfxuvq/100 WBC (Bld)20.9 %[facility] Comment on above:Order Comment: CALL doctor L9755 tel. [phone], FAX [phone] CALL doctor L9755 tel. [phone], FAX [phone] By: #### CBCWD #### [facility] [address] [place] [address] TPL (RBC) [Entitic mass]31.1 nwTogcuo66.0-31.3MChildren's Hospital ColoradoComment on above:Order Comment: CALL doctor L9755 tel. [phone], FAX [phone] CALL doctor L9755 tel. [phone], FAX [phone] By: #### CBCWD #### [facility] [address] [place] [address] QKNR22.1 %Qbqqmt70.0-37.0[facility] HospitalComment on above:Order Comment: CALL doctor L9755 tel. [phone], FAX [phone] CALL doctor L9755 tel. [phone], FAX [phone] By: #### CBCWD #### [facility] [address] [place] [address] MFO (RBC) [Entitic vol]94.1 hWFgwoes52.4-94.8[facility] HospitalComment on above:Order Comment: CALL doctor L9755 tel. [phone], FAX [phone] CALL doctor L9755 tel. [phone], FAX [phone] By: #### CBCWD #### [facility] [address] [place] [address] Ejqxxwynf (Bld) [#/Vol]0.8 10*3/uLNormal0.2-0.8[facility] HospitalComment on above:Order Comment: CALL doctor L9755 tel. [phone], FAX [phone] CALL doctor L9755 tel. [phone], FAX [phone] By: #### CBCWD #### [facility] [address] [place] [address] Ertqzarqr/100 WBC (Bld)8.1 %[facility] Comment on above:Order Comment: CALL doctor L9755 tel. [phone], FAX [phone] CALL doctor L9755 tel. [phone], FAX [phone] By: #### CBCWD #### [facility] [address] [place] [address] Tichivmxbpv (Bld) [#/Vol]6.3 10*3/uLNormal1.4-6.5[facility] HospitalComment on above:Order Comment: CALL doctor L9755 tel. [phone], FAX [phone] CALL doctor L9755 tel. [phone], FAX [phone] By: #### CBCWD #### [facility] [address] [place] [address] Vpjvndnyyhg/100 WBC (Bld)68.6 %[facility] Comment on above:Order Comment: CALL doctor L9755 tel. [phone], FAX [phone] CALL doctor L9755 tel. [phone], FAX [phone] By: #### CBCWD #### [facility] [address] [place] [address] Cjyiosplf (Bld) [#/Vol]195 10*3/aTCbhgxc971-252NdmnlUniversity Of Colorado HospitalComment on above:Order Comment: CALL doctor L9755 tel. [phone], FAX [phone] CALL doctor L9755 tel. [phone], FAX [phone] By: #### CBCWD #### [facility] [address] [place] [address] DLH (Bld) [#/Vol]3.92 10*6/uLLow4.20-5.40[facility] HospitalComment on above:Order Comment: CALL doctor L9755 tel. [phone], FAX [phone] CALL doctor L9755 tel. [phone], FAX [phone] By: #### CBCWD #### [facility] [address] [place] [address] FEY (Bld) [#/Vol]9.2 10*3/uLNormal4.8-10.8[facility] HospitalComment on above:Order Comment: CALL doctor L9755 tel. [phone], FAX [phone] CALL doctor L9755 tel. [phone], FAX [phone] By: #### CBCWD #### [facility] [address] [place] [address] Ovysmesjymcah Metabolic Panelon 20-44-7152Xpxjpam [Mass/Vol]3.4 g/dL Low3.5-4.6MChildren's Hospital ColoradoComment on above:Order Comment: CALL doctor L9755 tel. [phone], FAX [phone] CALL doctor L9755 tel. [phone], FAX [phone] By: #### CMP #### [facility] [address] [place] [address] VDZ [Catalytic activity/Vol]96 U/VNsjrnw13-961EdgoxUniversity Of Colorado HospitalComment on above:Order Comment: CALL doctor L9755 tel. [phone], FAX [phone] CALL doctor L9755 tel. [phone], FAX [phone] By: #### CMP #### [facility] [address] [place] [address] EVF [Catalytic activity/Vol]12 U/LNormal0-33[facility] HospitalComment on above:Order Comment: CALL doctor L9755 tel. [phone], FAX [phone] CALL doctor L9755 tel. [phone], FAX [phone] By: #### CMP #### [facility] [address] [place] [address] Kprwb gap [Moles/Vol]12 mmol/LNormal9-15[facility] HospitalComment on above:Order Comment: CALL doctor L9755 tel. [phone], FAX [phone] CALL doctor L9755 tel. [phone], FAX [phone] By: #### CMP #### [facility] [address] [place] [address] ESA [Catalytic activity/Vol]32 U/LNormal0-35[facility] HospitalComment on above:Order Comment: CALL doctor L9755 tel. [phone], FAX [phone] CALL doctor L9755 tel. [phone], FAX [phone] By: #### CMP #### [facility] [address] [place] [address] Atghszcpe [Mass/Vol]0.7 mg/dLNormal0.2-0.7[facility] HospitalComment on above:Order Comment: CALL doctor L9755 tel. [phone], FAX [phone] CALL doctor L9755 tel. [phone], FAX [phone] By: #### CMP #### [facility] [address] [place] [address] Stwquxh [Mass/Vol]8.8 mg/dLNormal8.5-9.9[facility] HospitalComment on above:Order Comment: CALL doctor L9755 tel. [phone], FAX [phone] CALL doctor L9755 tel. [phone], FAX [phone] By: #### CMP #### [facility] [address] [place] [address] Ybrmwsmb [Moles/Vol]96 mmol/BUatkdz50-787UmgkeUniversity Of Colorado HospitalComment on above:Order Comment: CALL doctor L9755 tel. [phone], FAX [phone] CALL doctor L9755 tel. [phone], FAX [phone] By: #### CMP #### [facility] [address] [place] [address] DC2 [Moles/Vol]26 mmol/RVwyvhk14-65DodmyUniversity Of Colorado Hospital Comment on above:Order Comment: CALL doctor L9755 tel. [phone], FAX [phone] CALL doctor L9755 tel. [phone], FAX [phone] By: #### CMP #### [facility] [address] [place] [address] Kuypccyvuh [Mass/Vol]1.06 mg/dLCritically high0.50-0.90[facility] HospitalComment on above:Order Comment: CALL doctor L9755 tel. [phone], FAX [phone] CALL doctor L9755 tel. [phone], FAX [phone] By: #### CMP #### [facility] [address] [place] [address] VWN85.2Low>60[facility] HospitalComment on above:Order Comment: CALL doctor L9755 tel. [phone], FAX [phone] CALL doctor L9755 tel. [phone], FAX [phone] Comment: Pediatric calculator link https://www.kidney.org/professionals/kdoqi/gfr_calculatorped Effective Dec 14, 2021 These results are not intended for use in patients <18 years of age. eGFR results are calculated without a race factor using the 2020 CKD-EPI equation. Careful clinical correlation is recommended, particularly when comparing to results calculated using previous equations. The CKD-EPI equation is less accurate in patients with extremes of muscle mass, extra-renal metabolism of creatinine, excessive creatinine ingestion, or following therapy that affects renal tubular secretion.Performed By: #### CMP #### [facility] [address] [place] [address] Gzxoeyef (S) [Mass/Vol]2.9 g/dLNormal2.3-3.5[facility] HospitalComment on above:Order Comment: CALL doctor L9755 tel. [phone], FAX [phone] CALL doctor L9755 tel. [phone], FAX [phone] By: #### CMP #### [facility] [address] [place] [address] Qwrdqmw [Mass/Vol]257 mg/dLCritically iyrf90-59ArceeChildren's Hospital ColoradoComment on above:Order Comment: CALL doctor L9755 tel. [phone], FAX [phone] CALL doctor L9755 tel. [phone], FAX [phone] By: #### CMP #### [facility] [address] [place] [address] Vezitqavc [Moles/Vol]3.8 mmol/LNormal3.4-4.9[facility] HospitalComment on above:Order Comment: CALL doctor L9755 tel. [phone], FAX [phone] CALL doctor L9755 tel. [phone], FAX [phone] By: #### CMP #### [facility] [address] [place] [address] Jefgsqf [Mass/Vol]6.3 g/dLNormal6.3-8.0[facility] Comment on above:Order Comment: CALL doctor L9755 tel. [phone], FAX [phone] CALL doctor L9755 tel. [phone], FAX [phone] By: #### CMP #### [facility] [address] [place] [address] Nlrnrz [Moles/Vol]134 mmol/KElv499-808YvyycUniversity Of Colorado Hospital Comment on above:Order Comment: CALL doctor L9755 tel. [phone], FAX [phone] CALL doctor L9755 tel. [phone], FAX [phone] By: #### CMP #### [facility] [address] [place] [address] Xvxy nitrogen [Mass/Vol]16 mg/dLNormal8-23[facility] HospitalComment on above:Order Comment: CALL doctor L9755 tel. [phone], FAX [phone] CALL doctor L9755 tel. [phone], FAX [phone] By: #### CMP #### [facility] [address] [place] [address] EY [place] [phone] [address] [place] Scan Report Signed Patient: ALTON BARKER MR#: [id number] : 1940 Acct:[id number] Age/Sex: 83 / F ADM Date: 05/02/24 Loc: CARD Attending Dr: Juani Martinez D.O. Ordering Physician: Juani Martinez D.O. Date of Service: 05/02/24 Procedure(s): CT chest high res Accession Number(s): [id number] cc: HONEY RABAGO [address] [address] Patient Name: ALTON BARKER MRN: [id number] date: 1940 Sex: F Assigned Patient Location: CARD Current Patient Location: Accession/Order Number: [id number] Exam Date: 05/03/2024 10:42 Report Date: 05/03/2024 [...] Carrie Miguel M.D.05/03/2024 10:53 AM Dictation Location: [place] [address] Electronically authenticated by: [id number] Y Date: 05/03/2024 10:53 Dictated By: Carrie Miguel M.D. Signed By: 05/03/24 1238 DD/ 1053 TD/TT: Thread Cutter:TBHRadiology, Radiologist, - 05/03/2024 [place] [address] CT Scan Report Signed Patient: ALTON BARKER MR#: [id number] : 1940 Acct:[id number] Age/Sex: 83 / F ADM Date: 05/02/24 Loc: CARD Attending Dr: Juani Martinez D.O. Ordering Physician: Juani Martinez D.O. Date of Service: 05/02/24 Procedure(s): CT chest high res Accession Number(s): [id number] cc: HONEY RABAGO [place] [id number] Patient Name: ALTON BARKER MRN: [id number] date: 1940 Sex: F Assigned Patient Location: CARD Current Patient Location: Accession/Order Number: [id number] Exam Date: 05/03/2024 10:42 Report Date: 05/03/2024 10:53 At the request of: JUANI MARTINEZ Procedure: CT chest high res HIGH-RESOLUTION CT [...] Carrie Miguel M.D.05/03/2024 10:53 AM Dictation Location: [place] [address] Electronically authenticated by: [id number] Y Date: 05/03/2024 10:53 Dictated By: Carrie Miguel M.D. Signed By: 05/03/24 1238 DD/ 1053 TD/TT: Thread Cutter: JENNIFER HealthcareRadiology Study observation (narrative)NOMS HealthcareCT Chest Ordered By: Radiologist Radiology on 65-66-4381YZJJ Healthcare Work Phone: rt PULMONARY FUNCTION TESTon 39-29-2780Hzw[place] [address] Respiratory Report Signed Patient: ALTON BARKER MR#: [id number] : 1940 Acct:[id number] Age/Sex: 83 / F ADM Date: 05/02/24 Loc: CARD Attending Dr: Juani Martinez D.O. Ordering Physician: Juani Martinez D.O. Date of Service: 05/02/24 Procedure(s): RT pulmonary function test Accession Number(s): [id number] cc: [facility] Test Date: 2024-05-02 Pat Name: ALTON BARKER Department: Room: - Gender: Female Peanut Vendor: Chery Morrison RRT : 1940 Requested By: Juani Martinez Order Number: [id number] Reading MD: Juani Martinez Interpretive Statements Pulmonary [...] By: Juani Martinez D.O. Signed By: 05/02/24 1804 DD/ 1309 TD/TT: Thread Cutter:TBHRadiology, Radiologist, - 05/02/[address] [address] Respiratory Report Signed Patient: ALTON BARKER MR#: [id number] : 1940 Acct:[id number] Age/Sex: 83 / F ADM Date: 05/02/24 Loc: CARD Attending Dr: Juani Martinez D.O. Ordering Physician: Juani Martinez D.O. Date of Service: 05/02/24 Procedure(s): RT pulmonary function test Accession Number(s): [id number] cc: [facility] Test Date: 2024-05-02 Pat Name: ALTON BARKER Department: Room: - Gender: Female Peanut Vendor: Chery Morrison RRT : 1940 Requested By: Juani Martinez Order Number: [id number] Reading MD: Juani Martinez Interpretive Statements Pulmonary [...] By: Juani Martinez D.O. Signed By: 05/02/24 1804 DD/ 1309 TD/TT: Thread Cutter: JENNIFER HealthcareRadiology Study observation (narrative)JENNIFER HealthcareRT PULMONARY FUNCTION TESTOrdered By: Radiologist Radiology on 71-65-0124LKOJ Healthcare Work Phone: Urine Cultureon 34-75-2020Yyltyzsj identified Cx Nom (U)ORGANISM: Enterobacter cloacae complex (O:ENTCLOCPLX) Aubrey Count 50,000 ORGANISM: Enterococcus faecalis (O:ENTFAC) Aubrey Count 25,000 ORGANISM: Aerococcus urinae (O:AERURI) Aubrey Count >100,000 Organism Comments Organism not Routinely Tested for Susceptibilities Aerococcus urinae and Aerococcus viridans have been described as susceptible to penicillin, amoxicillin, piperacillin, cefepime, rifampin, and nitrofurantoin, and resistant to sulfonamides. Aerobic JIMMY Charge (NMIC56) SUSCEPTIBILITY ORGANISM: O:ENTCLOCPLX ANTIBIOTIC INTERPRETATION JIMMY Amikacin S <16 Aztreonam IB <4 Cefepime S <2 Ceftazidime IB <1 Ceftriaxone IB <1 Cefuroxime R >16 Ciprofloxacin S <0.25 Ertapenem S <0.5 Gentamicin S <2 Levofloxacin S <0.5 Meropenem S <1 Meropenem/Vaborbactam S <2 Nitrofurantoin I 64 Piperacillin/Tazobactam IB <8 Tetracycline S <4 Tigecycline S <2 Tobramycin S <2 Trimethoprim/Sulfamethoxazole S <0.5 Aerobic JIMMY Charge (PCMIC38) SUSCEPTIBILITY ORGANISM: O:ENTFAC ANTIBIOTIC INTERPRETATION JIMMY Ampicillin S <2 Ciprofloxacin S <1 Daptomycin S 1 Levofloxacin S <1 Linezolid S <1 Nitrofurantoin S <32 Penicillin S 2 Tetracycline R >8 Vancomycin S 2 S = SUSCEPTIBLE I = INTERMEDIATE R [...] RESISTANT TO ALL B-LACTAM DRUGS. PERFORMED BY: [facility] Candi GRANT. [place] [id number] PATHOLOGIST PIPED POCKET MACHINE OPERATOR NARDA CHEN M.D.Jay Hospital Physician GroupComment on above: Performed By: #### CUU #### [address] [address] USACT cervical spine wo conon 76-31-6307TP cervical spine wo [facility] [address] [place] [address] [place] [address] CT Scan Report Signed Patient: Alton Barker MR#: [id number] : 1940 Acct:[id number] Age/Sex: 83 / F ADM Date: 03/04/24 Loc: ER Room: Type: [facility] ER Attending Dr: Copies to: Lillian Hutton MD Ordering Provider: Lillian Hutton MD Date of Service: 03/04/24 CT/CT head/brain wo con: nkjhb ([id number]) CT/CT cervical spine wo con: nkjhb CT [...] Vijay Holden M.D.03/05/2024 9:13 AM Dictation Location: [place] [address] Transcribed By: [facility] 03/05/24912 Dictated By: Vijay Holden II, MD 03/05/24905 Signed By: 03/05/24 0913Jay Hospital Physician GroupCT lumbar spine wo conon 00-19-0847AI lumbar spine wo [facility] [place] [address] [place] [address] CT Scan Report Signed Patient: Alton Barker MR#: [id number] : 1940 Acct:[id number] Age/Sex: 83 / F ADM Date: 03/04/24 Loc: ER Room: Type: [facility] ER Attending Dr: Copies to: Lillian [...] with vacuum disc phenomena at T12-L1, L2-3, L3- L4, L4-5, and L5-S1. There is facet hypertrophy [...] Vijay Holden M.D.03/05/2024 9:47 AM Dictation Location: [place] [address] Transcribed By: [facility] 03/05/24 0947 Dictated By: Vijay Holden II, MD 03/05/24 0913 Signed By: 03/05/24 0947Jay Hospital Physician GroupBacteria [Presence] in Urine sediment by Light microscopyOrdered By: Lillian Hutton on 28-49-3186Zzoirstz LM Ql (Urine sed)Bacteria [Presence] in Urine sediment by Light microscopyHighNone Galion HospitalBasic Metabolic Panelon 86-51-4150Lwtpx gap [Moles/Vol]12.5 mmol/LNormal6.0-15.0The [facility] Physician GroupComment on above:Performed By: #### CBC, BMP #### [place] [address] USACalcium [Mass/Vol]9.1 mg/dLNormal8.6-10.3The [facility] Physician GroupComment on above:Performed By: #### CBC, BMP #### [facility] [address] [place] [address] USAChloride [Moles/Vol]104 mmol/TPvphai20-596Psu [facility] Physician GroupComment on above:Performed By: #### CBC, BMP #### [place] [address] USACO2 [Moles/Vol]26.0 mmol/VCjtjmf73.0-31.0The [facility] Physician GroupComment on above:Performed By: #### CBC, BMP #### [place] [address] USACreatinine [Mass/Vol]0.84 mg/dLNormal0.60-1.20The [facility] Physician GroupComment on above:Performed By: #### CBC, BMP #### [place] [address] USACreatinine Clr Calc Tvkupvmb45.88NormalThe [facility] Physician [facility] Rush HealthComment on above:Result Comment: PERFORMED BY: [place] [address] PATHOLOGIST PIPED POCKET MACHINE OPERATOR NARDA CHEN M.D.Performed By: #### CBC, BMP #### [place] [address] USAGFR/1.73 sq M.predicted MDRD (S/P/Bld) [Vol rate/Area] mL/min/{1.73_m2}NormalThe [facility] Physician [facility] HealthComment on above:Performed By: #### CBC, BMP #### [place] [address] USAGlucose [Mass/Vol]166 mg/yYUixh34-504Xvz [facility] Physician GroupComment on above:Result Comment: Random Glucose Reference Range is dependent on time and content of last meal. Glucose of more than 200 mg/dL in a nonstressed, ambulatory subject supports the diagnosis of Diabetes Mellitus. ADA recommended reference rangePerformed By: #### CBC, BMP #### [facility] [address] [place] [address] USAPotassium [Moles/Vol]4.5 mmol/LNormal3.5-5.1The [facility] Physician GroupComment on above:Performed By: #### CBC, BMP #### [facility] [address] [place] [address] USASodium [Moles/Vol]138 mmol/SXhqgcr644-756Fcu [facility] Physician GroupComment on above:Performed By: #### CBC, BMP #### [facility] [address] [place] [address] USAUrea nitrogen [Mass/Vol]14 mg/dLNormal7-25The [facility] Physician GroupComment on above:Performed By: #### CBC, BMP #### [facility] [address] [place] [id number] USABasophils Auto (Bld) [#/Vol]Ordered By: Lillian Hutton on 38-27-2007Kwnsfjlrr (Bld) [#/Vol]Automated basophil count0.0-0.2FTrinity Health System Twin City Medical CenterBasophils/100 WBC Auto (Bld)Ordered By: Lillian Hutton on 91-67-8439Whptnwckm/100 WBC (Bld)Automated basophil %.[facility] Medical CenterBilirubin Test strip Ql (U)Ordered By: Lillian Hutton on 52-12-0136Rueiqqvfl Ql (U)Bilirubin.total [Presence] in Urine by Test stripNegativeKettering Health – Soin Medical CenterCalcium [Mass/volume] in Serum or PlasmaOrdered By: Lillian Hutton on 20-07-6821Msmjwco [Mass/Vol]Calcium [Mass/volume] in Serum or Plasma 8.6-10.3FTrinity Health System Twin City Medical CenterCarbon dioxide, total [Moles/volume] in Serum or PlasmaOrdered By: Lillian Hutton on 78-86-6534LK7 [Moles/Vol]Carbon dioxide, total [Moles/volume] in Serum or Resbyw00.0-31.0[facility] Medical CenterChloride [Moles/volume] in Serum or PlasmaOrdered By: Lillian Hutton on 92-56-9475Yccktgnf [Moles/Vol]Chloride [Moles/volume] in Serum or Plasma 98-107[facility] Medical CenterComplete Blood Count Auto Diffon 59-37-0471Daqnggvbr (Bld) [#/Vol]0.0 10*3/uLNormal0.0-0.2The [facility] Physician GroupComment on above:Result Comment: PERFORMED BY: [place] [address] PATHOLOGIST PIPED POCKET MACHINE OPERATOR NARDA CHEN M.D.Performed By: #### CBC, BMP #### [place] [address] USABasophils/100 WBC (Bld)0.6 %Normal.The [facility] Physician GroupComment on above:Performed By: #### CBC, BMP #### [place] [address] USAEosinophils (Bld) [#/Vol]0.2 10*3/uLNormal0.0-0.45The [facility] Physician GroupComment on above:Performed By: #### CBC, BMP #### [place] [address] USAEosinophils/100 WBC (Bld)3.6 %Normal.The [facility] Physician GroupComment on above:Performed By: #### CBC, BMP #### [place] [address] USAErythrocyte distribution width (RBC) [Ratio]17.1 %High 11.9-15.3The [facility] Physician GroupComment on above:Performed By: #### CBC, BMP #### [place] [address] USAHematocrit (Bld) [Volume fraction]36.0 %Xmlsda28.0-46.4The [facility] Physician GroupComment on above:Performed By: #### CBC, BMP #### [facility] [address] [place] [address] USAHemoglobin (Bld) [Mass/Vol]11.7 g/dLLow11.8-15.4The [facility] Physician GroupComment on above:Performed By: #### CBC, BMP #### [place] [address] USALymphocytes (Bld) [#/Vol]1.5 10*3/uLNormal1.00-4.8The [facility] Physician GroupComment on above:Performed By: #### CBC, BMP #### [place] [address] USALymphocytes/100 WBC (Bld)22.1 %Normal.The [facility] Physician GroupComment on above:Performed By: #### CBC, BMP #### [place] [address] USAMCH (RBC) [Entitic mass]30.1 rpXbpvtm19.7-34.3The [facility] Physician GroupComment on above:Performed By: #### CBC, BMP #### [place] [address] USAMCV (RBC) [Entitic vol]92.7 kZFwxecu36-021Uaa [facility] Physician GroupComment on above:Performed By: #### CBC, BMP #### [place] [address] USAMean Corpuscular HGB Conc32.4 g/hICxbwza61.0-35.0The [facility] Physician GroupComment on above:Performed By: #### CBC, BMP #### [place] [address] USAMonocytes (Bld) [#/Vol]0.7 10*3/uLNormal0.0-0.8The [facility] Physician GroupComment on above:Performed By: #### CBC, BMP #### [place] [address] USAMonocytes/100 WBC (Bld)23.00 %High0.00-20.00The [facility] Physician GroupComment on above:Result Comment: For adults in ED, MDW > 20.0 may be associated with a higher risk of sepsis during the first 12 hrs of hospital admissionPerformed By: #### CBC, BMP #### [facility] [address] [place] [address] USAMonocytes/100 WBC (Bld)9.6 %Normal.The [facility] Physician GroupComment on above:Performed By: #### CBC, BMP #### [facility] [address] [place] [address] USANeutrophils (Bld) [#/Vol]4.4 10*3/uLNormal1.8-7.7The [facility] Physician GroupComment on above:Performed By: #### CBC, BMP #### [place] [address] USANeutrophils/100 WBC (Bld)64.1 %Normal.The [facility] Physician GroupComment on above:Performed By: #### CBC, BMP #### [place] [address] USANRBC%0.1 /100{WBC}Normal0-0.5The [facility]ician Group Comment on above:Performed By: #### CBC, BMP #### [place] [address] USAPlatelet mean volume (Bld) [Entitic vol]9.0 fLNormal 6.3-10.7The [facility] Physician GroupComment on above:Performed By: #### CBC, BMP #### [facility] [address] [place] [address] USAPlatelets (Bld) [#/Vol]197 10*3/lHMcrnel593-758Lwv [facility] Physician GroupComment on above:Performed By: #### CBC, BMP #### [place] [address] USARBC (Bld) [#/Vol]3.88 10*6/uLNormal3.60-5.00The [facility] Physician GroupComment on above:Performed By: #### CBC, BMP #### [facility] [address] [place] [address] USAWBC (Bld) [#/Vol]6.9 10*3/uLNormal3.8-11.6The [facility] Physician GroupComment on above:Performed By: #### CBC, BMP #### [place] [address] USACreatinine [Mass/volume] in Serum or PlasmaOrdered By: Lillian Hutton on 48-93-8658Wrgpzbemyy [Mass/Vol]Creatinine [Mass/volume] in Serum or Plasma0.60-1.20[facility] Soin Medical CenterDipstick and Microscopicon 51-40-9169Vuvktcivqo (U)Slightly CloudyCritically abnormalClearThe [facility] Physician GroupComment on above:Order Comment: Name Collection Type:: Straight CatheterPerformed By: #### ADDONUAPLUS, CUU #### [place] [address] USABacteria,Urine2+HighNone SeenThe [facility] Physician Group Comment on above:Order Comment: Name Collection Type:: Straight Catheter Performed By: #### ADDONUAPLUS, CUU #### [place] [address] USABilirubin,UrineNegativeNormalNegativeThe [facility] Physician GroupComment on above:Order Comment: Name Collection Type:: Straight CatheterPerformed By: #### ADDONUAPLUS, CUU #### [place] [id number] USAColor (U)Light-YellowNormalYellowThe [facility] Physician GroupComment on above:Order Comment: Name Collection Type:: Straight Catheter Performed By: #### ADDONUAPLUS, CUU #### [place] [id number] USAGlucose Ql (U)NormalNormalNormalThe [facility] Physician GroupComment on above:Order Comment: Name Collection Type:: Straight Catheter Performed By: #### ADDONUAPLUS, CUU #### [place] [id number] USAKetones Ql (U)NegativeNormalNegativeThe [facility] Physician GroupComment on above:Order Comment: Name Collection Type:: Straight CatheterPerformed By: #### GAGAN, CUU #### [place] [address] USALeukocyte esterase Test strip Ql (U)2+HighNegativeThe [facility] Physician GroupComment on above:Order Comment: Name Collection Type:: Straight CatheterPerformed By: #### GAGAN, CUU #### [place] [address] USANitrite,UrinePositiveHighNegativeThe [facility] Physician GroupComment on above:Order Comment: Name Collection Type:: Straight Catheter Performed By: #### GAGAN, CUU #### [place] [address] USAOccult Blood,UrineTraceHighNegativeThe [facility] Physician GroupComment on above:Order Comment: Name Collection Type:: Straight Catheter Result Comment: PERFORMED BY: [place] [address] PATHOLOGIST PIPED POCKET MACHINE OPERATOR NARDA CHEN M.D.Performed By: #### GAGAN, CUU #### [place] [address] USApH (U)7.0 [pH]Normal5.0-9.0The [facility]ician Group Comment on above:Order Comment: Name Collection Type:: Straight Catheter Performed By: #### GAGAN, CUU #### [place] [address] USAProtein,UrineTraceHighNegativeThe [facility] Physician GroupComment on above:Order Comment: Name Collection Type:: Straight Catheter Performed By: #### GAGAN, CUU #### [place] [address] USARBC,Urine0 [HPF]Normal0-4The [facility]ician Group Comment on above:Order Comment: Name Collection Type:: Straight Catheter Performed By: #### GAGAN, CUU #### [address] [place] [address] USASpecificy [place],Urine1.171Tuwsft2.001-1.030The [facility] Physician GroupComment on above:Order Comment: Name Collection Type:: Straight CatheterPerformed By: #### ADDONUAPLUS, CUU #### [place] [address] USASquamous Epithelial Cell,UrineNone SeenNormal0-2The [facility] Physician GroupComment on above:Order Comment: Name Collection Type:: Straight CatheterPerformed By: #### ADDONUAPLUS, CUU #### [place] [address] USAUrine CommentNormRiverview Health Institutee [facility] Physician GroupComment on above:Order Comment: Name Collection Type:: Straight CatheterResult Comment: SPECIMEN RECEIVED HAD ONLY 1 ML OF URINE. SPECIMEN NOT SPUN DOWN FOR MICROSCOPY. INTERPRET RESULTS WITH CAUTION. PERFORMED BY: [place] [address] PATHOLOGIST PIPED POCKET MACHINE OPERATOR NARDA CHEN M.D.Performed By: #### ADDONUAPLUS, CUU #### [place] [address] USAUrobilinogen,UrineNormalNormalNormRiverview Health Institutee [facility] Physician GroupComment on above:Order Comment: Name Collection Type:: Straight CatheterPerformed By: #### ADDONUAPLUS, CUU #### [place] [address] USAWBC,Urine5 [HPF]High0-4The [facility]ician Group Comment on above:Order Comment: Name Collection Type:: Straight Catheter Performed By: #### ADDONUAPLUS, CUU #### [place] [address] USAECG 12 lead ECGon 74-35-9975NIN 12 lead ECGTRUMBULL [facility] [place] [address] [place] [address] Electrocardiograph Report Signed Patient: Alton Barker MR#: [id number] : 1940 Acct:[id number] Age/Sex: 83 / F ADM Date: 03/04/24 Loc: ER Room: Type: [facility] ER Attending Dr: Ordering Provider: Lillian [...] MUS Signed By Lillian Hutton MD 03/04/24 2340[facility] Hospital Physician GroupEosinophils Auto (Bld) [#/Vol]Ordered By: Lillian Hutton on 58-73-9985Aocycbcgzkl (Bld) [#/Vol]Automated eosinophil count 0.0-0.45[facility] Medical CenterEosinophils/100 WBC Auto (Bld)Ordered By: Lillian Hutton on 75-89-8487Yuugswdhfwt/100 WBC (Bld)Automated eosinophil %. [facility] Medical CenterEpithelial cells.squamous [#/area] in Urine sediment by Microscopy high power fieldOrdered By: Lillian Hutton on 03-04-2024 Epithelial cells.squamous LM.HPF (Urine sed) [#/Area]Epithelial cells.squamous [#/area] in Urine sediment by Microscopy high power field0-2FTrinity Health System Twin City Medical CenterErythrocyte distribution width Auto (RBC) [Ratio]Ordered By: Lillian Hutton on 81-70-5910Dtmbomhdyre distribution width (RBC) [Ratio]Erythrocyte distribution width [Ratio] by Automated wutcbUpsl39.9-15.3FTrinity Health System Twin City Medical CenterErythrocytes [#/area] in Urine sediment by Microscopy high power fieldOrdered By: Lillian Hutton on 67-88-3332FKO LM.HPF (Urine sed) [#/Area] Erythrocytes [#/area] in Urine sediment by Microscopy high power field0-4 [facility] So[facility] Medical CenterGlucose [Mass/volume] in Serum or PlasmaOrdered By: Lillian Hutton on 55-97-8327Qnmhjeg [Mass/Vol]Glucose [Mass/volume] in Serum or NxrtnkVahh66-239EasgntpzaKettering Health – Soin Medical CenterComment on above:ADA recommended reference rangeRandom Glucose Reference Range is dependent on time and content of last meal. Glucose of more than 200 mg/dL in a nonstressed, ambulatory subject supports the diagnosisof Diabetes Mellitus.Glucose [Mass/volume] in Urine by Test stripOrdered By: Lillian Hutton on 64-48-4615Ugzeort Test strip (U) [Mass/Vol]Glucose [Mass/volume] in Urine by Test stripNormal [facility] Medical CenterHematocrit Auto (Bld) [Volume fraction]Ordered By: Lillian Hutton on 10-95-3234Vinekbkqeu (Bld) [Volume fraction]Hematocrit [Volume Fraction] of Blood by Automated count34.0-46.4FTrinity Health System Twin City Medical Center Hemoglobin Test strip Ql (U)Ordered By: Lillian Hutton on 96-11-3541Doxrqoxrzu Ql (U)Hemoglobin [Presence] in Urine by Test stripHighNegGreen Cross HospitalHemoglobin [Mass/volume] in BloodOrdered By: Lillian Hutton on 07-44-1150Yzirrxgmut (Bld) [Mass/Vol]Hemoglobin [Mass/volume] in BloodLow 11.8-15.4FTrinity Health System Twin City Medical CenterKetones Test strip (U) [Mass/Vol] Ordered By: Lillian Hutton on 01-43-9020Lefjvwh (U) [Mass/Vol]Urine ketones measurement by test strip (mass/volume)NegativeKettering Health – Soin Medical Center Leukocyte esterase [Presence] in Urine by Test stripOrdered By: Lillian Hutton on 31-38-4840Rnfzynlcn esterase Test strip Ql (U)Leukocyte esterase [Presence] in Urine by Test stripHighNegGreen Cross HospitalLeukocytes [#/area] in Urine sediment by Microscopy high power fieldOrdered By: Lillian Hutton on 88-78-7401EUZ LM.HPF (Urine sed) [#/Area]Leukocytes [#/area] in Urine sediment by Microscopy high power fieldHigh0-4FTrinity Health System Twin City Medical Center Leukocytes [#/volume] corrected for nucleated erythrocytes in Blood by Automated counOrdered By: Lillian Hutton on 85-76-5622TAC corrected for nucl RBC Auto (Bld) [#/Vol]Leukocytes [#/volume] corrected for nucleated erythrocytes in Blood by Automated coun3.8-11.6FTrinity Health System Twin City Medical CenterLymphocytes Auto (Bld) [#/Vol]Ordered By: Lillian Hutton on 61-51-7697Ehbozlkwlxn (Bld) [#/Vol]Lymphocytes [#/volume] in Blood by Automated count1.00-4.8[facility] Lymphocytes/100 WBC Auto (Bld)Ordered By: Lillian Hutton on 03-04-2024 Lymphocytes/100 WBC (Bld)Lymphocytes/100 leukocytes in Blood by Automated count. [facility] Medical CenterMCH Auto (RBC) [Entitic mass]Ordered By: Lillian Hutton on 33-35-9593JQB (RBC) [Entitic mass]MCH [Entitic mass] by Automated count 24.7-34.3FTrinity Health System Twin City Medical CenterMCHC Auto (RBC) [Mass/Vol]Ordered By: Lillian Hutton on 13-49-2224OZMN (RBC) [Mass/Vol]MCHC [Mass/volume] by Automated count32.0-35.0[facility] Medical CenterMCV Auto (RBC) [Entitic vol] Ordered By: Lillian Hutton on 20-27-7728KOQ (RBC) [Entitic vol]MCV [Entitic volume] by Automated badpl08-144CjitxedrkKettering Health – Soin Medical CenterMonocyte distribution width [Entitic volume] in Blood by AutomatedOrdered By: Lillian Hutton on 03-04-2024 Monocyte distribution width Auto (Bld) [Entitic vol]Monocyte distribution width [Entitic volume] in Blood by AutomatedHigh0.00-20.00[facility] Medical CenterComment on above:For adults in ED, MDW > 20.0 may be associated with a higher risk of sepsis during the first 12 hrs of hospital admissionMonocytes Auto (Bld) [#/Vol]Ordered By: Lillian Hutton on 22-04-5310Xyrhjwomd (Bld) [#/Vol] Automated blood monocyte count0.0-0.8[facility] Monocytes/100 WBC Auto (Bld)Ordered By: Lillian Hutton on 84-37-4759Vbpvpmxxn/100 WBC (Bld)Automated monocyte %.[facility] Medical CenterNeutrophils Auto (Bld) [#/Vol]Ordered By: Lillian Hutton on 76-18-5731Waddmdgrcui (Bld) [#/Vol] Neutrophils [#/volume] in Blood by Automated count1.8-7.7FTrinity Health System Twin City Medical CenterNeutrophils/100 WBC Auto (Bld)Ordered By: Lillian Hutton on 03-04-2024 Neutrophils/100 WBC (Bld)Automated neutrophil %.[facility] Medical CenterNitrite Test strip Ql (U)Ordered By: Lillian Hutton on 20-63-5233Apfovjo Ql (U)Nitrite [Presence] in Urine by Test stripHighNegativeKettering Health – Soin Medical CenterNo Panel InformationOrdered By: Lillian Hutton on 69-83-6972Jtydz CommentSee commentKettering Health – Soin Medical CenterComment on above:SPECIMEN RECEIVED HAD ONLY 1 ML OF URINE. SPECIMEN NOT SPUN DOWN FOR MICROSCOPY. INTERPRET RESULTS WITH CAUTION.Estimated GFR (CKD-EPI)> 60.0 mL/MinKettering Health – Soin Medical CenterPharmacy Creatinine Clearance (Chem62.88[facility] Medical CenterNucleated erythrocytes [Presence] in Blood by Automated countOrdered By: Lillian Hutton on 06-03-9158Ppyusyfxb RBC Auto Ql (Bld)Nucleated erythrocytes [Presence] in Blood by Automated count0-0.5FTrinity Health System Twin City Medical CenterPlatelet mean volume Auto (Bld) [Entitic vol]Ordered By: Lillian Hutton on 99-77-7768Bxmajxbg mean volume (Bld) [Entitic vol]Platelet mean volume [Entitic volume] in Blood by Automated count6.3-10.7FTrinity Health System Twin City Medical CenterPlatelets Auto (Bld) [#/Vol]Ordered By: Lillian Hutton on 58-47-0517Izrrzrwdm (Bld) [#/Vol]Platelets [#/volume] in Blood by Automated yqdmt272-743XzdgatyvnKettering Health – Soin Medical CenterPotassium [Moles/volume] in Serum or PlasmaOrdered By: Lillian Hutton on 57-57-7635Uxxkznyng [Moles/Vol]Potassium [Moles/volume] in Serum or Plasma3.5-5.1FTrinity Health System Twin City Medical CenterProtein Test strip (U) [Mass/Vol]Ordered By: Lillian Hutton on 07-07-7424Veoozei (U) [Mass/Vol]Protein [Mass/volume] in Urine by Test stripHighNegativeKettering Health – Soin Medical CenterRBC Auto (Bld) [#/Vol]Ordered By: Lillian Hutton on 97-40-8049BCI (Bld) [#/Vol]Erythrocytes [#/volume] in Blood by Automated count3.60-5.00Martins Ferry Hospitalerum or plasma anion gap determinationOrdered By: Lillian Hutton on 02-86-0948Ndglg gap [Moles/Vol]Serum or plasma anion gap determination 6.0-15.0Martins Ferry Hospitalodium [Moles/volume] in Serum or PlasmaOrdered By: Lillian Hutton on 61-44-3189Ighnzh [Moles/Vol]Sodium [Moles/volume] in Serum or Imowin076-423IhupiqlkvKettering Health – Soin Medical Center Specific gravity of Urine by RefractometryOrdered By: Lillian Hutton on 03-04-2024 Specific gravity Refractometry (U) [Rel density]Specific gravity of Urine by Refractometry1.001-1.030[facility] Soin Medical CenterUrea nitrogen [Mass/volume] in Serum or PlasmaOrdered By: Lillian Hutton on 47-93-6885Cbju nitrogen [Mass/Vol]Urea nitrogen [Mass/volume] in Serum or Plasma7-25[facility] Soin Medical CenterUrine Cultureon 90-66-6479Ymwatbrd identified Cx Nom (U) ORGANISM: Escherichia coli (O:ESCCOL) Aubrey Count >100,000 Aerobic JIMMY Charge (NMIC56) SUSCEPTIBILITY [...] <4 Tigecycline S <2 Tobramycin S <2 Trimethoprim/Sulfamethoxazole S <0.5 S = SUSCEPTIBLE I = [...] RESISTANT TO ALL B-LACTAM DRUGS. PERFORMED BY: [place] [address] PATHOLOGIST PIPED POCKET MACHINE OPERATOR NARDA CHEN M.D.NormalUf Health North Physician GroupComment on above: Performed By: #### GAGAN, DIMAU #### [place] [address] USAUrine appearance determinationOrdered By: Lillian Hutton on 03-93-4825Gxwwlkzack (U)Urine appearanceAbnoalCMercy Health Lorain HospitalUrine color determinationOrdered By: Lillian Hutton on 77-22-1967Lbrqx (U) Urine colorYelProMedica Toledo HospitalUrine cultureOrdered By: Lillian Hutton on 55-51-0641Fakyxrms identified Cx Nom (U)Escherichia coliAbDiley Ridge Medical CenterUrobilinogen Test strip (U) [Mass/Vol]Ordered By: Lillian Hutton on 59-05-5872Dkyoedziuliz (U) [Mass/Vol]Urobilinogen [Mass/volume] in Urine by Test stripNoRegency Hospital Cleveland EastWBC Auto (Bld) [#/Vol]Ordered By: Lillian Hutton on 24-22-1025KHU (Bld) [#/Vol] Leukocytes [#/volume] in Blood by Automated count3.8-11.6FTrinity Health System Twin City Medical CenterpH Test strip (U)Ordered By: Lillian Hutton on 02-76-2035eI (U)pH of Urine by Test strip5.0-9.0[facility] Medical CenterCT lumbar spine wo conon 62-86-2363RB lumbar spine wo [facility] [place] [address] [place] [address] CT Scan Report Signed Patient: Alton Barker MR#: [id number] : 1940 Acct:[id number] Age/Sex: 83 / F ADM Date: 02/26/24 Loc: ER Room: Type: [facility] ER Attending Dr: Copies to: Lillian [...] Malin Jr., D.O.02/27/2024 8:19 AM Dictation Location: [place] [address] Transcribed By: [facility] 02/27/24 0819 Dictated By: Alcides Malin Jr, DO 02/27/24 0816 Signed By: 02/27/24 0819[facility] Boadl02-ynrxwffwofsuih D3 [Mass/Vol] on 83-99-887429230535-ghmkunvlarvmxe D [Mass/Vol]61.8 ng/mL30.0 - 100.0 ng/mLNOMS HealthcareComment on above:Vitamin D deficiency has been defined by the [place] and an Endocrine Society practice guideline as a level of serum 25-OH vitamin D less than 20 ng/mL (1,2). The Endocrine Society went on to further define vitamin D insufficiency as a level between 21 and 29 ng/mL (2). 1. IOM ([place]). 2010. Dietary reference intakes for calcium and D. [place]: The National AcademPcsso Press. 2. Earl MF, Ken WILL, Yoandy PEDERSEN, et al. Evaluation, treatment, and prevention of vitamin D deficiency: an Endocrine Society clinical practice guideline. JCEM. 2010; 96(7):1911-30. CBC W Auto Differential panel (Bld)on 66-99-9881Edloumgnz (Bld) [#/Vol]0 10*3/uL NOMS HealthcareBasophils/100 WBC (Bld)1 %Not Estab.NOMS HealthcareEosinophils (Bld) [#/Vol]0.2 10*3/uLNOMS HealthcareEosinophils/100 WBC (Bld)3 %Not Estab. NOM HealthcareErythrocyte distribution width (RBC) [Ratio]14.5 %11.7 - 15.4 % NOMS HealthcareHematocrit (Bld) [Volume fraction]37.9 %34.0 - 46.6 %NOM HealthcareHemoglobin (Bld) [Mass/Vol]11.6 g/dL11.1 - 15.9 g/dLNOCO Healthcare Immature granulocytes (Bld) [#/Vol]0 10*3/uLNOMS HealthcareImmature granulocytes/100 WBC (Bld)0 %Not Estab.NOMS HealthcareLymphocytes (Bld) [#/Vol] 1.7 10*3/uLNOMS HealthcareLymphocytes/100 WBC (Bld)24 %Not Estab.[facility] MCH (RBC) [Entitic mass]29.2 pg26.6 - 33.0 pgNOMS HealthcareMCHC (RBC) [Mass/Vol]30.6 g/dLLow31.5 - 35.7 g/dLNOMS HealthcareMCV (RBC) [Entitic vol]96 fL79 - 97 fLNOMS HealthcareMonocytes (Bld) [#/Vol]0.5 10*3/uLNOMS Healthcare Monocytes/100 WBC (Bld)7 %Not Estab.NOMS HealthcareNeutrophils (Bld) [#/Vol]4.8 10*3/uLNOMS HealthcareNeutrophils/100 WBC (Bld)65 %Not Estab.[facility] Healthcare Platelets (Bld) [#/Vol]174 10*3/uLNOMS HealthcareRBC (Bld) [#/Vol]3.97 10*6/uL NOMS HealthcareWBC (Bld) [#/Vol]7.4 10*3/uLNOMS HealthcareComprehensive metabolic panelon 64-22-8167Affflzz [Mass/Vol]3.8 g/dL3.7 - 4.7 g/dLNOMS HealthcareALP [Catalytic activity/Vol]96 U/LNOMS HealthcareALT [Catalytic activity/Vol]15 U/LNOMS HealthcareAST [Catalytic activity/Vol]16 U/LNOMS HealthcareBilirubin [Mass/Vol]1.2 mg/dL0.0 - 1.2 mg/dLNOMS HealthcareCalcium [Mass/Vol]8.9 mg/dL8.7 - 10.3 mg/dLNOCO HealthcareChloride [Moles/Vol]102 mmol/L 96 - 106 mmol/LNOMS HealthcareCO2 [Moles/Vol]25 mmol/L20 - 29 mmol/LNOMS HealthcareCreatinine [Mass/Vol]0.95 mg/dL0.57 - 1.00 mg/dLNOCO Healthcare GFR/1.73 sq M.predicted among non-blacks MDRD (S/P/Bld) [Vol rate/Area]60 mL/min/{1.73_m2}59 - PINF mL/min/1.73NOMS HealthcareGlobulin (S) [Mass/Vol]3.1 g/dL1.5 - 4.5 g/dLNOCO HealthcareGlucose [Mass/Vol]190 mg/yRKrpe84 - 99 mg/dL NOM HealthcarePotassium [Moles/Vol]4.1 mmol/L3.5 - 5.2 mmol/LNOMS Healthcare Protein [Mass/Vol]6.9 g/dL6.0 - 8.5 g/dLNOCO HealthcareSodium [Moles/Vol]142 mmol/L134 - 144 mmol/LNOMS HealthcareUrea nitrogen [Mass/Vol]13 mg/dL8 - 27 mg/dLNOCO HealthcareUrea nitrogen/Creatinine [Mass ratio]14 mg/mg12 - 28NOCO HealthcareLaboratory - Chemistry and Chemistry - challengeon 44-63-3257NXG Qn 1.68 m[IU]/LNOMS HealthcareLipid 1996 panelon 45-34-3012Dbdiunoemxz [Mass/Vol] 115 mg/dL100 - 199 mg/dLNOCO HealthcareCholesterol in HDL [Mass/Vol]50 mg/dL39 - PINF mg/dLNOCO HealthcareCholesterol in LDL [Mass/Vol]45 mg/dL0 - 99 mg/dLSaint Joseph Health CenterCholesterol in VLDL [Mass/Vol]20 mg/dL5 - 40 mg/dLST. GEORGE REG[facility]AL [facility] Healthcare Triglyceride [Mass/Vol]111 mg/dL0 - 149 mg/dLSaint Joseph Health CenterNo Panel Information on 90-91-1388Mkirlwrmszaupp and review of laboratory resultsAbOSF HealthCare St. Francis HospitalPerformed at: [address] [place] [address] Supervisor Locomotive: Ismael Kruger PhD, Phone: [phone] Health System Performed at: [address] [place], [place] [id number] Supervisor Locomotive: Ismael Kruger PhD, Phone: [phone] Health System Specimen Status Reporton 84-63-3628Hsbwtpjptre Disk diffusion (KB) [[facility]Comment NOMS HealthcareComment on above:Ambig Abbrev CMP14 Default Ambig Abbrev CMP14 Default A hand-written panel/profile was received from your office. In accordance with the [facility] Ambiguous Test Code Policy dated September 2002, we have completed your order by using the closest currently or formerly recognized AMA panel. We have assigned Comprehensive Metabolic Panel (14), Test Code #463631 to this request. If this is not the testing you wished to receive on this specimen, please contact the [facility] Client Inquiry/Technical Services Department to clarify the test order. We appreciate your business. Debby Bañuelosv LP Default Debby Cardenasrev LP Default A hand-written panel/profile was received from your office. In accordance with the [facility] Ambiguous Test Code Policy dated September 2002, we have completed your order by using the closest currently or formerly recognized AMA panel. We have assigned Lipid Panel, Test Code #071451 to this request. If this is not the testing you wished to receive on this specimen, please contact the [facility] Client Inquiry/Technical Services Department to clarify the test order. We appreciate your business. Vitamin B12on 15-86-5794Pkerivksi (Vitamin B12) [Mass/Vol]pg/hABumh146 - 1245 pg/mLNWEATHERFORD REGIONAL [facility] HealthcareLaboratory - Hematology and Cell countson 72-84-9689SiL4h (Bld) [Mass fraction]7.6 %[facility] HealthcareNo Panel Informationon 17-87-1212AIIW HealthcareLaboratory - Hematology and Cell countson 77-04-8708LzH7a (Bld) [Mass fraction]9.2 %[facility] CenterNo Panel Informationon 77-16-4578TDWP Healthcare CNOVon 54-05-0524UMNYFxgghh Visit (NRMDN) ALTON BARKER ([id number]) 1940 F Date Time Provider Department 10/25/23 1:30 PM GLORIA PEREZ BANNERCindy During your visit today, we recorded the following information about you: Pulse Blood pressure Weight Height 74/minute 137/76 112 kg 1.676 m Gloria Perez APRN.[facility] 11/02/2023 9:17 PM Signed [facility] - FOLLOW UP EVALUATION Honey Rabago DO [address] [place] [address] [facility] [address] Dear Honey Rabago DO: I had the [...] mind about physical therapy and if the soaker hides approves Depression and anxiety: Continue Venlafaxine (Effexor) [...] Exercises Regularly: Yes She downloaded exercises off [employer]. ALLERGIES Allergen Reactions Hydrocodone-Acetami* Mental Status Change Adhesive Tape (Sridevi* Rash Bupropion Mental Status Change hallucinations Latex, Natural Rubb* Rash Rosuvastatin Calcium Unknown Current Outpatient Medications Medication Sig venlafaxine ER (EFFEXOR XR) 150 mg 24 hr capsule Take 150 mg by mo (more content not included)...NormalSouthern Ohio Medical Center Cheston 24-76-3033[address] [address] [address] Scan Report Signed Patient: ALTON BARKER MR#: [id number] : 1940 Acct:[id number] Age/Sex: 83 / F ADM Date: 10/18/23 Loc: CARD Attending Dr: Juani Martinez D.O. Ordering Physician: Juani Martinez D.O. Date of Service: 10/18/23 Procedure(s): CT chest high res Accession Number(s): [id number] cc: HONEY RABAGO [place] [address] Patient Name: ALTON BARKER MRN: [facility]:[id number] date: 1940 Sex: F Assigned Patient Location: CARD Current Patient Location: Accession/Order Number: [id number] Exam Date: 10/18/2023 13:55 Report Date: 10/20/2023 06:24 At the request of: JUANI MARTINEZ Procedure: CT chest high res EXAMINATION: CT chest high res HISTORY: Pulmonary Fibrosis COMPARISON: CT chest 04/13/2023 TECHNIQUE: Axial images were obtained at 10 mm intervals during inspiration and expiration in the supine and prone positions. No IV contrast given. Dose reduction techniques were achieved by using automated exposure control and/or adjustment of mA and/or kV according to patient size and/or use of iterative reconstruction technique. FINDINGS: LUNGS: Mild/moderate chronic interstitial changes throughout the lungs. No appreciable air trapping or significant peripheral fibrosis. Calcification of the trachea, central, and segmental bronchi. Minimal bronchiectasis within right lower lobe. No focal infiltrates. PLEURA: No mass, effusion, or pneumothorax. ROSCOE: No mass or adenopathy. MEDIASTINUM: No mass or adenopathy. HEART: No significant enlargement or pericardial effusion.. Coronary arteries: Moderate to marked atherosclerotic disease. AORTA: No aneurysm.. CHEST WALL: No mass or axillary adenopathy LIMITED ABDOMEN: Small nonobstructing stone within left kidney. Limited images of the upper abdomen. OTHER: Negative. CT/CT chest high res IMPRESSION: 1. Moderate chronic interstitial changes without significant air trapping or focal peripheral fibrosis. 2. Suspect mild diffuse atelectasis. No convincing acute infiltrates. 3. Atherosclerotic coronary artery disease. 4. Nonobstructing left nephrolithiasis. Electronically authenticated by: SAVAGE GARCIA Date: 10/20/2023 06:24 Dictated By: Savage Garcia M.D. Signed By: 10/20/23625 DD/ 3 TD/TT: Thread Cutter:DERICKadiologmatthias, Radiologist, - 10/20/2023 [place] [address] CT Scan Report Signed Patient: ALTON BARKER MR#: [id number] : 1940 Acct:[id number] Age/Sex: 83 / F ADM Date: 10/18/23 Loc: CARD Attending Dr: Juani Martinez D.O. Ordering Physician: Juani Martinez D.O. Date of Service: 10/18/23 Procedure(s): CT chest high res Accession Number(s): [id number] cc: HONEY RABAGO [place] [address] Patient Name: ALTON BARKER MRN: [facility]:[id number] date: 1940 Sex: F Assigned Patient Location: CARD Current Patient Location: Accession/Order Number: [id number] Exam Date: 10/18/2023 13:55 Report Date: 10/20/2023 06:24 At the request of: JUANI MARTINEZ Procedure: CT chest high res EXAMINATION: CT chest high res HISTORY: Pulmonary Fibrosis COMPARISON: CT chest 04/13/2023 TECHNIQUE: Axial images were obtained at 10 mm intervals during inspiration and expiration in the supine and prone positions. No IV contrast given. Dose reduction techniques were achieved by using automated exposure control and/or adjustment of mA and/or kV according to patient size and/or use of iterative reconstruction technique. FINDINGS: LUNGS: Mild/moderate chronic interstitial changes throughout the lungs. No appreciable air trapping or significant peripheral fibrosis. Calcification of the trachea, central, and segmental bronchi. Minimal bronchiectasis within right lower lobe. No focal infiltrates. PLEURA: No mass, effusion, or pneumothorax. ROSCOE: No mass or adenopathy. MEDIASTINUM: No mass or adenopathy. HEART: No significant enlargement or pericardial effusion.. Coronary arteries: Moderate to marked atherosclerotic disease. AORTA: No aneurysm.. CHEST WALL: No mass or axillary adenopathy LIMITED ABDOMEN: Small nonobstructing stone within left kidney. Limited images of the upper abdomen. OTHER: Negative. CT/CT chest high res IMPRESSION: 1. Moderate chronic interstitial changes without significant air trapping or focal peripheral fibrosis. 2. Suspect mild diffuse atelectasis. No convincing acute infiltrates. 3. Atherosclerotic coronary artery disease. 4. Nonobstructing left nephrolithiasis. Electronically authenticated by: SAVAGE GARCIA Date: 10/20/2023 06:24 Dictated By: Savage Garcia M.D. Signed By: 10/20/23625 DD/ 3 TD/TT: Thread Cutter: [facility] HealthcareRadiology Study observation (narrative)NOM HealthcareCT Chest Ordered By: Radiologist Radiology on 63-05-3379[employer] Work Phone: cnovon [phone] Visit (NRMDN) FAVIOLAALTON Robert ([id number]) 1940 F Date Time Provider Department 06/23/23 3:00 PM GLORIA PEREZ BANNERCindy During your visit today, we recorded the following information about you: Weight Height 107.6 kg 1.676 m Gloria Perez APRN.[employer]ICS AX DEVELOPER 06/23/2023 8:12 PM Signed [facility] - FOLLOW UP EVALUATION Honey Rabago DO [address] [facility] [address] [facility] [address] Dear Honey Rabago DO: I had the pleasure of seeing Ms. Barker for follow-up today. As you know she is a 82 year old right-handed female with a history of Parkinson's disease since 2013. She is seen with her son. Subjective Previous Plan-01/20/2023 Visit: Parkinson's disease: Continue current medication schedule but discuss with the senior field engineer if you can take the Sinemet on [...] control disorder: No No (more content not included)...Normal[facility] HEMOGLOBINon 11-89-2891Lnaucvntuj (Bld) [Mass/Vol]11.7 g/dL Low12.0 - 16.0 g/dLNOMS HealthcareInterpretation and review of laboratory resultsAbnormalNOMS HealthcareCLINISYNCNOMS HealthcareRT PULMONARY FUNCTION TEST on 22-70-6949RxsSouth[place] [address] Respiratory Report Signed Patient: ALTON BARKER MR#: [id number] : 1940 Acct:[id number] Age/Sex: 82 / F ADM Date: 04/27/23 Loc: CARD Attending Dr: Davide Salas M.D. Ordering Physician: Davide Salas M.D. Date of Service: 04/27/23 Procedure(s): RT pulmonary function test Accession Number(s): [id number] cc: [facility] Test Date: 2023-04-27 Pat Name: ALTON BARKER Department: Room: - Gender: Female Peanut Vendor: Tomas Ott RRT : 1940 Requested By: [id number] Order Number: [id number] Reading MD: Juani Martinez Interpretive Statements Pulmonary function testing was completed according to ATS criteria. Findings were considered accurate and reproducible, with exception of DLCO which did not meet ATS standards. No bronchodilator was administered due to normal FEV1. Spirometry: -FEV1/FVC: Normal @ 85% -FEV1: Normal @ 89% -FVC: Mildly reduced @ 77% Lung volumes by plethysmography: -RV: Reduced @ 68% -TLC: Mildly reduced @ 72% Diffusion capacity: -DLCO: Moderately-severe reduction @ 50% when corrected for Hb 11.7g/dL Flow-volume loop: -Mild restrictive pattern Impressions: -Spirometry suggests mild restriction which is confirmed with a reduction in the TLC. Moderately-severe reduction in DLCO. This pattern can be seen in, but not restricted to, cardiopulmonary vascular disorders and interstitial lung disease. Clinical correlation required. Electronically Signed On 04-27-2023 14:42:45 EST by Juani Martinez Dictated By: Juani Martinez D.O. Signed By: 04/27/23 1442 DD/ 1323 TD/TT: Thread Cutter:TBHRadiology, Radiologist, - 04/27/2023 [place] [address] Respiratory Report Signed Patient: ALTON BARKER MR#: [id number] : 1940 Acct:[id number] Age/Sex: 82 / F ADM Date: 04/27/23 Loc: CARD Attending Dr: Davide Salas M.D. Ordering Physician: Davide Salas M.D. Date of Service: 04/27/23 Procedure(s): RT pulmonary function test Accession Number(s): [id number] cc: [facility] Test Date: 2023-04-27 Pat Name: ALTON BARKER Department: Room: - Gender: Female Peanut Vendor: Tomas Ott RRT : 1940 Requested By: 9999 Order Number: [id number] Reading MD: Juani Martinez Interpretive Statements Pulmonary function testing was completed according to ATS criteria. Findings were considered accurate and reproducible, with exception of DLCO which did not meet ATS standards. No bronchodilator was administered due to normal FEV1. Spirometry: -FEV1/FVC: Normal @ 85% -FEV1: Normal @ 89% -FVC: Mildly reduced @ 77% Lung volumes by plethysmography: -RV: Reduced @ 68% -TLC: Mildly reduced @ 72% Diffusion capacity: -DLCO: Moderately-severe reduction @ 50% when corrected for Hb 11.7g/dL Flow-volume loop: -Mild restrictive pattern Impressions: -Spirometry suggests mild restriction which is confirmed with a reduction in the TLC. Moderately-severe reduction in DLCO. This pattern can be seen in, but not restricted to, cardiopulmonary vascular disorders and interstitial lung disease. Clinical correlation required. Electronically Signed On 04-27-2023 14:42:45 EST by Juani Martinez Dictated By: Juani Martinez D.O. Signed By: 04/27/23 1442 DD/ 1323 TD/TT: Thread Cutter: [facility]ITALHasmukh HealthcareRadiology Study observation (narrative)[facility] PULMONARY FUNCTION TESTOrdered By: Radiologist Radiology on 35-44-0846GMUL [employer] Work Phone: ct CHEST WO CONon [phone] [address] CT Scan Report Signed Patient: ALTON BARKER MR#: [id number] : 1940 Acct:[id number] Age/Sex: 82 / F ADM Date: 04/13/23 Loc: CT Attending Dr: GeovannaStaff Physician Sierra Ordering Physician: Davide Salas M.D. Date of Service: 04/13/23 Procedure(s): CT chest wo con Accession Number(s): [id number] cc: HONEY RABAGO [place] [address] Patient Name: ALTON BARKER MRN: [facility]:[id number] date: 1940 Sex: F Assigned Patient Location: CT Current Patient Location: CT Accession/Order Number: [id number] Exam Date: 04/13/2023 12:45 Report Date: 04/13/2023 13:52 At the request of: NON-STAFF PHYSICIAN Procedure: CT chest wo con EXAMINATION: CT chest wo con HISTORY: lung nodule R91.1 COMPARISON: No relevant comparison available. TECHNIQUE: Multi-planar CT images were created with IV contrast. Axial, Coronal, and Sagittal images. Dose reduction techniques were achieved by using automated exposure control and/or adjustment of mA and/or kV according to patient size and/or use of iterative reconstruction technique. FINDINGS: LUNGS: Calcified tracheobronchial tree mild subpleural honeycombing and peripheral intralobular septal thickening. Few scattered punctate pulmonary nodules PLEURA: No mass, effusion, or pneumothorax. VASCULATURE: No abnormality. ROSCOE: No mass or adenopathy. MEDIASTINUM: No mass or adenopathy. CARDIAC: No enlargement or pericardial effusion. Heavy coronary atherosclerosis AORTA: No aneurysm or dissection. CHEST WALL: No mass or axillary adenopathy. BONES: No bone lesion or fracture. LIMITED ABDOMEN: No suspicious findings. Limited images of the upper abdomen. OTHER: Negative. CT/CT chest wo con IMPRESSION: Mild pulmonary fibrosis Few scattered calcified and noncalcified punctate pulmonary nodules, nonspecific Electronically authenticated by: MODE RICE Date: 04/13/2023 13:52 Dictated By: Mode Rice M.D. Signed By: 04/13/23 9580 DD/ 1352 TD/TT: Thread Cutter:TBHRadiology, Radiologist, - 04/13/2023 [place] [address] CT Scan Report Signed Patient: ALTON BARKER MR#: [id number] : 1940 Acct:[id number] Age/Sex: 82 / F ADM Date: 04/13/23 Loc: CT Attending Dr: Valeria-Staff Physician Sierra Ordering Physician: Davide aSlas M.D. Date of Service: 04/13/23 Procedure(s): CT chest wo con Accession Number(s): [id number] cc: MUKULCariHONEY [place] [address] Patient Name: ALTON BARKER MRN: [facility]:[id number] date: 1940 Sex: F Assigned Patient Location: CT Current Patient Location: CT Accession/Order Number: [id number] Exam Date: 04/13/2023 12:45 Report Date: 04/13/2023 13:52 At the request of: NON-STAFF PHYSICIAN Procedure: CT chest wo con EXAMINATION: CT chest wo con HISTORY: lung nodule R91.1 COMPARISON: No relevant comparison available. TECHNIQUE: Multi-planar CT images were created with IV contrast. Axial, Coronal, and Sagittal images. Dose reduction techniques were achieved by using automated exposure control and/or adjustment of mA and/or kV according to patient size and/or use of iterative reconstruction technique. FINDINGS: LUNGS: Calcified tracheobronchial tree mild subpleural honeycombing and peripheral intralobular septal thickening. Few scattered punctate pulmonary nodules PLEURA: No mass, effusion, or pneumothorax. VASCULATURE: No abnormality. ROSCOE: No mass or adenopathy. MEDIASTINUM: No mass or adenopathy. CARDIAC: No enlargement or pericardial effusion. Heavy coronary atherosclerosis AORTA: No aneurysm or dissection. CHEST WALL: No mass or axillary adenopathy. BONES: No bone lesion or fracture. LIMITED ABDOMEN: No suspicious findings. Limited images of the upper abdomen. OTHER: Negative. CT/CT chest wo con IMPRESSION: Mild pulmonary fibrosis Few scattered calcified and noncalcified punctate pulmonary nodules, nonspecific Electronically authenticated by: MODE RICE Date: 04/13/2023 13:52 Dictated By: Mode Rice M.D. Signed By: 04/13/23 4358 DD/ 1352 TD/TT: Thread Cutter: [facility] HealthcareRadiology Study observation (narrative)[facility] HealthcareCT CHEST WO CONOrdered By: Radiologist Radiology on 22-00-3538NMLS [employer] Work Phone: cULTURE URINEon 25-13-6969TOTGCKU URINEIsolate 1 Escherichia coli >100,000 cfu/mL of ORGANISM [...] <=0.12 S F Nitrofurantoin <=16 S F Trimethoprim/Sulfamethoxazole <=20 S FNormalPremier Health Miami Valley Hospital NorthComment on above:Performed By: #### URCX #### [facility] [address] [place] [address] Dr. Joyce Monet (CLEAN/CATCH) OVERHEAD DOOR TECHNICIAN/MICRO IF IND.on 05-89-9916Ruaokrurm Ql (U) NegativeNormalNEGATIVEPremier Health Miami Valley Hospital NorthComment on above:Performed By: #### PAULY UACSIND #### [facility] [address] [place] [address] Dr. Joyce De La Vega (U)CLEARNormalCLEARPremier Health Miami Valley Hospital NorthComment on above: Performed By: #### PAULY UACSIND #### [facility] [address] [place] [address] Dr. Joyce Cloud (U)LT. YELLOWNormalYELLOWPremier Health Miami Valley Hospital NorthComment on above:Performed By: #### PAULY UACSIND #### [facility] [address] [place] [address] Dr. Joyce StraussGlucose Ql (U)NegativeNormalNEGATIVEPremier Health Miami Valley Hospital NorthComment on above:Performed By: #### PAULY UACSIND #### [facility] [address] [place] [address] Dr. Joyce StraussHemoglobin Ql (U)NegativeNormalNEGATIVEPremier Health [facility] Comment on above:Performed By: #### PAULY UACSIND #### [facility] [address] [address] [address] Joyce Petit Ql (U)NegativeNormalNEGATIVEPremier Health [facility] Hospital NorthComment on above:Performed By: #### PAULY UACSIND #### [facility] [address] [address] [address] Joyce StraussLEUKOCYTESLARGEAbnormalNEGATIVEPremier Health [facility] Hospital NorthComment on above:Performed By: #### PAULY UACSIND #### [facility] [address] [address] [address] Joyce Mcbride Ql (U)PositiveAbnoalNEGOhioHealth Hardin Memorial Hospital Comment on above:Performed By: #### PAULY UACSIND #### [facility] [address] [address] [address] Joyce Mora (U)5.5 [pH]Normal5-9The Premier HealthComment on above: Performed By: #### PAULY UACSIND #### [facility] [address] [address] [address] Joyce StraussSPEC GRAVITY1.328Ysmzbq1.005-<=1.025The Premier HealthComment on above:Performed By: #### PAULY UACSIND #### [facility] [address] [address] [address] Joyce Monet PROTEINTRACENormalNEGATIVE/ TRACEThe Premier HealthComment on above:Performed By: #### PAULY UACSIND #### [facility] [address] [address] [address] Joyce Chopra MICRO INDINDICATEDNormalThOhioHealth Doctors HospitalComment on above: Performed By: #### PAULY UACSIND #### [facility] [address] [address] [address] Joyce StraussUrobilinogen Qn (U)0.2 {Cam'U}/dLNormal0.2 - 1.0[facility] on above:Performed By: #### PAULY UACSIND #### [facility] [address] [address] [address] Joyce ANDREA ONLYon 56-56-9467WJPEWOJZMWFEGCcjyxhceAOOG SEEN [facility] NorthCommunson [facility] on above:Performed By: #### PAULY UACSIND #### [facility] [address] [place] [address] Dr. Joyce Lala identified Cx Nom (U)INDICATEDNoalThOhioHealth Doctors HospitalComment on above:Performed By: #### PAULY UACSIND #### [facility] [address] [place] [address] Dr. Joyce Jean OX CRYSTALSRARENormalPremier Health [facility] Hospital NorthCommunson healthcare [facility] on above: Performed By: #### PAULY UACSIND #### [facility] [address] [place] [address] Dr. Joyce Couch SEENNormalNONE SEENL[facility] on above:Performed By: #### PAULY UACSIND #### [facility] [address] [place] [address] Dr. Jyoce Moya LM Nom (Urine sed)SEENAbnormalNONE SEENPremier Health [facility] Hospital NorthCommunson healthcare [facility] on above:Performed By: #### PAULY UACSIND #### [facility] [address] [place] [address] Dr. Joyce Bradythelial cells LM Ql (Urine sed)FEWAbnormalNONE SEEN /RAREPremier Health [facility] Hospital NorthCommunson healthcare [facility] on above:Performed By: #### PAULY UACSIND #### [facility] [address] [place] [address] Dr. Joyce Ortega SEENNormalNONE SEENL[facility] on above:Performed By: #### PAULY UACSIND #### [facility] [address] [place] [address] Dr. Yilan ChangRBCNONE SEENAbnormal0-2[facility] on above: Performed By: #### MECHE COATSCSIND #### [facility] [address] [place] [address] Dr. Joyce Corona (U) [#/Vol]/uLAbnormalNONE SEENPremier Health [facility] Hospital NorthCommunson healthcare [facility] on above:Performed By: #### MECHE COATSCSIND #### [facility] [address] [place] [address] Dr. Joyec Solorzano URINEon 04-47-7909QFISLZK URINEIsolate 1 Escherichia coli >100,000 cfu/mL of ORGANISM [...] <=0.12 S F Nitrofurantoin <=16 S F Trimethoprim/Sulfamethoxazole <=20 S FNormalPremier Health Miami [facility] Hospital NorthCommunson healthcare [facility] on above:Performed By: #### URCX #### [facility] [address] [place] [address] Dr. Joyce Monet RANDOMon 75-15-9003Kdbgqignl Ql (U)NegativeNormalNEGATIVEPremier Health Miami [facility] Hospital NorthComment on above:Performed By: #### UA #### [facility] [address] [place] [address] Dr. Joyce De La Vega (U)CLOUDYAbnormalCLEARThOhioHealth Doctors HospitalComment on above:Performed By: #### UA #### [facility] [address] [place] [address] Dr. Joyce Cloud (U)YELLOWNormalYELLOWPremier Health Miami Valley Hospital NorthComment on above: Performed By: #### UA #### [facility] [address] [place] [address] Dr. Yilan ChangGlucose Ql (U)NegativeNormalNEGATIVEPremier Health Miami Valley Hospital NorthComment on above:Performed By: #### UA #### [facility] [address] [place] [address] Dr. Joyce StraussHemoglobin Ql (U)MODERATEAbnormalNEGOhioHealth Hardin Memorial Hospital Comment on above:Performed By: #### UA #### [facility] [address] [place] [address] Dr. Joyce StraussKetones Ql (U)NegativeNormalNEGATIVEPremier Health Miami Valley Hospital NorthComment on above:Performed By: #### UA #### [facility] [address] [place] [address] Dr. Joyce StraussLEUKOCYTESLARGEAbnormalNEGATIVEPremier Health Miami [facility] Hospital NorthComment on above:Performed By: #### UA #### [facility] [address] [place] [address] Dr. Joyce StraussNitrite Ql (U)PositiveAbnormalNEGOhioHealth Hardin Memorial Hospital Comment on above:Performed By: #### UA #### [facility] [address] [place] [address] Dr. Joyce StrausspH (U)6.0 [pH]Normal5-9[facility] NorthCommunson healthcare [facility] on above: Performed By: #### UA #### [facility] [address] [place] [address] Dr. Joyce StraussSPEC GRAVITY1.916Yoknnt9.005-<=1.025The Premier HealthComment on above:Performed By: #### UA #### [facility] [address] [place] [address] Dr. Joyce Monet QSVNMST703 mg/dlAbnormalNEGATIVE/ TRACEPremier Health [facility] Comment on above:Performed By: #### UA #### [facility] [address] [place] [address] Dr. Joyce StraussUrobilinogen Qn (U)1.0 {Cam'U}/dLNormal0.2 - 1.0The Premier HealthComment on above:Performed By: #### UA #### [facility] [address] [address] [address] Joyce Ornelas culture routineOrdered By: Honey Rabago on 01-01-2022 Bacteria identified Cx Nom (U)Escherichia coliKettering Health – Soin Medical Center Automated erythrocytes count in urine sediment (number/area)Ordered By: Honey Rabago on 15-81-1928YKQ Auto (Urine sed) [#/Area]3-4 [HPF]0-4FTrinity Health System Twin City Medical CenterAutomated leukocytes count in urine sediment (number/area)Ordered By: Honey Rabago on 06-35-9486TVM Auto (Urine sed) [#/Area]50-100 [HPF]0-4 [facility] Medical CenterBilirubin Test strip Ql (U)Ordered By: Honey Rabago on 54-28-2978Torjompte Ql (U)NegativeNegativeKettering Health – Soin Medical CenterColor Auto (U)Ordered By: Honey Rabago on 86-41-3257Gnlsj (U)Yellow YellowKettering Health – Soin Medical CenterKetones Auto test strip (U) [Mass/Vol] Ordered By: Honey Rabago on 90-32-1868Lgmsjcr (U) [Mass/Vol]NegativeNegative [facility] CenterLaboratory - UrinalysisOrdered By: Honey Rabago on 90-46-2959Afetrlz casts LM Ql (Urine sed)0-8 [LPF]0-8[facility] Medical CenterNitrite Test strip Ql (U)Ordered By: Honey Rabago on 36-31-3838Hcgmhmm Ql (U)PositiveNegativeKettering Health – Soin Medical CenterProtein Auto test strip (U) [Mass/Vol]Ordered By: Honey Rabago on 62-06-5821Vhdvskv (U) [Mass/Vol]Trace mg/dLNegSelect Medical Specialty Hospital - Columbus Southpecific gravity Auto test strip (U) [Rel density]Ordered By: Honey Rabago on 09-77-1169Gcjrkxco gravity (U) [Rel density]1.0171.001-1.030Martins Ferry Hospitalquamous epithelial cells detection in urine sediment by light microscopyOrdered By: Honey Rabago on 21-12-7617Ktpirghnmh cells.squamous LM Ql (Urine sed)1-2 [HPF]0-2FTrinity Health System Twin City Medical CenterUrine bacteria detection by automated methodOrdered By: Honey Rabago on 53-46-6237Zhisqvkp Auto Ql (U)1+None SeenKettering Health – Soin Medical CenterUrine clarity by refractometry automatedOrdered By: Honey Rabago on 27-85-6797Usgivgr Refractometry automated (U)CloudyCleGalion Community HospitalUrine glucose measurement by automated test strip (mass/volume)Ordered By: Honey Rabago on 38-94-0178Ozplbjr Auto test strip (U) [Mass/Vol]Normal mg/dLMartins Ferry HospitalUrine hemoglobin detection by automated test stripOrdered By: Honey Rabago on 78-92-0924Faltiyrfgf Auto test strip Ql (U) NegativeNegativeKettering Health – Soin Medical CenterUrine leukocyte esterase detection by automated test stripOrdered By: Honey Rabago on 12-30-2021 Leukocyte esterase Auto test strip Ql (U)3+NegativeKettering Health – Soin Medical CenterUrine sediment crystal identification by light microscopyOrdered By: Honey Rabago on 61-39-4764Hyrurykh LM Nom (Urine sed)None seen [HPF][facility] Medical CenterUrobilinogen Auto test strip (U) [Mass/Vol]Ordered By: Honey Rabago on 83-78-5051Huzxntahxaew (U) [Mass/Vol]Normal mg/dLMartins Ferry HospitalpH Auto test strip (U)Ordered By: Honey Rabago on 25-85-2829yZ (U)8.5 [pH]5.0-9.0[facility] PROTIMEon 32-05-9857VBA Coag (PPP) [Relative time]2.34 {INR}NormalThe Premier HealthComment on above:Performed By: #### PT #### [facility] [address] [address] [address] Joyce Bear GUIDELINESSEE [facility]iance Regional HospitalComment on above:Result Comment: DESIRED INR: 2.0 - 3.0 CONDITIONS NOT LISTED BELOW 2.5 - 3.5 FOR PROSTHETIC HEART VALVE REPLACEMENT 2.5 - 3.5 RECURRENT THROMBOSIS Performed By: #### PT #### [facility] [address] [place] [address] Dr. Joyce You Coag (PPP) [Time]23.9 sCritically high9.0-11.6ThOhioHealth Doctors HospitalComment on above:Performed By: #### PT #### [facility] [address] [place] [address] Dr. Joyce StraussPROTIMEon 77-48-1697JFF GUIDELINESSEE [facility]iance Regional HospitalComment on above:Result Comment: DESIRED INR: 2.0 - 3.0 CONDITIONS NOT LISTED BELOW 2.5 - 3.5 FOR PROSTHETIC HEART VALVE REPLACEMENT 2.5 - 3.5 RECURRENT THROMBOSISPerformed By: #### PT #### [facility] [address] [place] [address] Dr. Joyce You Coag (PPP) [Time]20.6 sCritically high9.0-11.6ThOhioHealth Doctors HospitalComment on above:Performed By: #### PT #### [facility] [address] [place] [address] Dr. Joyce StraussProthrombin Time INRon 71-01-8600Epmdloxxzsg Time INROzarks Medical CenterGold Capital Other INR Coag (PPP) [Relative time]2.00 {INR}NormalTira [employer] Other Comment on above:Performed By: #### PT #### [facility] [address] [place] [address] Dr. Joyce Mackay 23-24-9677QAD [place]UID[place] [facility] HospitalCommunson healthcare [facility] on above:Result Comment: DESIRED INR: 2.0 - 3.0 CONDITIONS NOT LISTED BELOW 2.5 - 3.5 FOR PROSTHETIC HEART VALVE REPLACEMENT 2.5 - 3.5 RECURRENT THROMBOSISPerformed By: #### PT #### [facility] [address] [place] [address] Dr. Joyce You Coag (PPP) [Time]25.9 sCritically high9.0-11.6ThOhioHealth Doctors HospitalComment on above:Performed By: #### PT #### [facility] [address] [place], [place] [address] Dr. Joyce StraussProthrombin Time INRon 98-68-1454Bucnsfbtype Time INRNoselect specialty hospital [employer] Other INR Coag (PPP) [Relative time]2.55 {INR}NormalPlover [employer] Other Comment on above:Performed By: #### PT #### [facility] [address] [place], [place] [address] Dr. Joyce StraussGlucose Glucometer (BldC) [Mass/Vol]Ordered By: Alcides Moya on 88-95-2027Ejslryy [Mass/Vol]125 mg/dLKettering Health – Soin Medical CenterComment on above:Random Glucose Reference Range is dependent on time and content of last meal. Glucose of more than 200 mg/dL in a nonstressed, ambulatory subject supports the diagnosis of Diabetes Mellitus.Laboratory - CoagulationOrdered By: Alcides Moya on 10-75-2859JP Coag (PPP) [Time]25.5 s9.0-12.9[facility] Medical CenterPlatelet poor plasma international normalized ratio (INR) by coagulation assay (relatOrdered By: Alcides Moya on 93-53-9980HKF Coag (PPP) [Relative time]2.2 {INR}[facility] Medical CenterComment on above:INR Therapeutic Range A) Pre- and Peroperative OAT started two weeks before surgery. NOT HIP SURGERY: 1.5 - 2.5 HIP SURGERY: 2 - 3 B) Primary and secondary prevention of venous THROMBOSIS: 2 - 3 C) Active venous thrombosis, pulmonary embolism and prevention of recurrent venous thrombosis: 2 - 3 D) Prevention of arterial thromboembolism including patients with mechanical heart valves: 3 - 4.5INR Therapeutic Range A) Pre- and Peroperative OAT started two weeks before surgery. NOT HIP SURGERY: 1.5 - 2.5 HIP SURGERY: 2 - 3B) Primary and secondary prevention of venous THROMBOSIS: 2 - 3C) Active venous thrombosis, pulmonary embolismand prevention of recurrent venous thrombosis: 2 - 3D) Prevention of arterial thromboembolismincluding patients with mechanical heart valves: 3 - 4.5Basophils Auto (Bld) [#/Vol]Ordered By: Elham Mendoza on 05-84-9646Daxnqowng (Bld) [#/Vol]N/[facility] CenterBasophils/100 WBC Auto (Bld)Ordered By: Elham Mendoza on 55-00-1625Qmdkqbrbw/100 WBC (Bld)[facility] HospitalBlood anisocytosis detectionOrdered By: Elham Mendoza on 99-42-9076Qceawkzfaksb Ql (Bld)ModerateKettering Health – Soin Medical CenterBlood hemoglobin measurement (mass/volume)Ordered By: Elham Mendoza on 11-24-2021 Hemoglobin (Bld) [Mass/Vol]11.4 g/dL11.8-15.4FTrinity Health System Twin City Medical Center Blood leukocytes automated count (number/volume)Ordered By: Elham Mendoza on 13-19-4809UOO (Bld) [#/Vol]6.0 10*3/uL4.5-11.0[facility] Creatinine and Glomerular filtration rate.predicted panel (S/P/Bld)Ordered By: Elham Mendoza on 17-05-2181Rmhdarieqv [Mass/Vol]0.53 mg/dL0.44-1.03[facility] CenterEosinophils Auto (Bld) [#/Vol]Ordered By: Elham Mendoza on 21-24-3825Mkjzdnexmmp (Bld) [#/Vol]NSt. Rita's HospitalEosinophils/100 WBC Auto (Bld)Ordered By: Elham Mendoza on 11-24-2021 Eosinophils/100 WBC (Bld)[facility] Valley HospitalErythrocyte distribution width Auto (RBC) [Ratio]Ordered By: Elham Mendoza on 11-24-2021 Erythrocyte distribution width (RBC) [Ratio]18.4 %11.9-15.3FTrinity Health System Twin City Medical CenterEstimated glomerular filtration rate (GFR) non- Ordered By: Elham Mendoza on 74-66-0421XQJ/1.73 sq M.predicted among non- blacks MDRD (S/P/Bld) [Vol rate/Area]> 60 mL/MinKettering Health – Soin Medical CenterHematocrit Auto (Bld) [Volume fraction]Ordered By: Elham Mendoza on 26-40-6148Nhmwhbwrrj (Bld) [Volume fraction]34.9 %34.0-46.4FTrinity Health System Twin City Medical CenterLaboratory - Hematology and Cell countsOrdered By: Elham Mendoza on 11-82-4700Ugexstxkv RBC/100 WBC (Bld) [Ratio]0.5 %0-0.5FTrinity Health System Twin City Medical CenterLymphocytes Auto (Bld) [#/Vol]Ordered By: Elham Mendoza on 41-70-4828Hfvyxcgezix (Bld) [#/Vol]N/[facility] CenterLymphocytes/100 WBC Auto (Bld)Ordered By: Elham Mendoza on 11-24-2021 Lymphocytes/100 WBC (Bld)N/[facility] CenterLymphocytes/100 WBC (Bld)35 %18-42[facility] CenterLymphocytes/100 WBC Manual cnt (Bld)Ordered By: Elham Mendoza on 73-78-3076Ieuenejdviq/100 WBC (Bld)1 %0-12 [facility] HospitalH Auto (RBC) [Entitic mass]Ordered By: Elham Mendoza on 45-13-2337SAE (RBC) [Entitic mass]29.9 pg24.7-34.3FTrinity Health System Twin City Medical CenterMCHC Auto (RBC) [Mass/Vol]Ordered By: Elham Mendoza on 27-85-1445XWOJ (RBC) [Mass/Vol]32.8 g/dL32.0-35.0[facility] CenterMCV Auto (RBC) [Entitic vol]Ordered By: Elham Mendoza on 42-91-6740XSS (RBC) [Entitic vol]91.2 sF96-202LzhrhbwamKettering Health – Soin Medical CenterMonocyte % Ordered By: Elham Mendoza on 80-20-9180Jmliovtsn/100 WBC (Bld)2 %1-3FTrinity Health System Twin City Medical CenterMonocytes Auto (Bld) [#/Vol]Ordered By: Elham Mendoza on 45-14-8695Afqepfwkc (Bld) [#/Vol]N/[facility] Monocytes/100 WBC Auto (Bld)Ordered By: Elham Mendoza on 11-24-2021 Monocytes/100 WBC (Bld)N/[facility] CenterMonocytes/100 WBC Manual cnt (Bld)Ordered By: Elham Mendoza on 65-06-5762Ejgtdkwqm/100 WBC (Bld)7 %2-11[facility] CenterMyelocytes/100 WBC Manual cnt (Bld) Ordered By: Elham Mendoza on 92-45-6154Jsqewelwir/100 WBC (Bld)1 %0-0 [facility] Medical CenterNeutrophils Auto (Bld) [#/Vol]Ordered By: Elham Mendoza on 70-09-6448Xlqmlggcwaj (Bld) [#/Vol]N/[facility] CenterNeutrophils/100 WBC Auto (Bld)Ordered By: Elham Mendoza on 11-24-2021 Neutrophils/100 WBC (Bld)N/[facility] CenterNo Panel InformationOrdered By: Elham Mendoza on 09-69-0874Jmjpjbzkv GFR ()> 60 mL/MinKettering Health – Soin Medical CenterComment on above:GFR estimated reference range: According to KDOQI guidelines, <60 ml/min/1.73m2 is sufficient todiagnose a patient with chronic kidney disease.Pharmacy Creatinine Clearance (Chem64.37[facility] Medical CenterPlatelet EstimateNormal NormalKettering Health – Soin Medical CenterPlatelet Morphology CommentNormalNormal [facility] Medical CenterPlatelet mean volume Auto (Bld) [Entitic vol] Ordered By: Elham Mendoza on 29-44-9401Zfhkjfih mean volume (Bld) [Entitic vol]8.8 fL6.3-10.7FTrinity Health System Twin City Medical CenterPlatelets Auto (Bld) [#/Vol] Ordered By: Elham Mendoza on 44-87-3665Fzdaxkgla (Bld) [#/Vol]285 10*3/uL 150-450[facility] Medical CenterRBC Auto (Bld) [#/Vol]Ordered By: Elham Mendoza on 16-46-2873MEZ (Bld) [#/Vol]3.82 10*6/uL3.60-5.00[facility] Medical CenterRBC morphologyOrdered By: Elham Mendoza on 18-13-8525ZVS morphology finding Nom (Bld)N/AFMercy Health St. Elizabeth Boardman Hospitalegmented neutrophils/100 WBC Manual cnt (Bld)Ordered By: Elham Mendoza on 11-24-2021 Segmented neutrophils/100 WBC (Bld)54 %50-70[facility] Serum or plasma anion gap determinationOrdered By: Elham Mendoza on 67-79-6223Enwwf gap [Moles/Vol]11.8 mmol/L6.0-15.0[facility] Ferry Hospitalerum or plasma calcium measurement (mass/volume)Ordered By: Elham Mendoza on 34-05-4446Tpttxjt [Mass/Vol]8.7 mg/dL8.2-10.2FMercy Health St. Elizabeth Boardman Hospitalerum or plasma chloride measurement (moles/volume)Ordered By: Elham Mendoza on 43-64-0213Qzrmmuic [Moles/Vol]103 mmol/T65-911PuciqcrnnMartins Ferry Hospitalerum or plasma glucose measurement (mass/volume)Ordered By: Elham Mendoza on 19-61-6712Rvwegqe [Mass/Vol]138 mg/wF74-045EbnusjiojKettering Health – Soin Medical CenterComment on above:ADA recommended reference range Random Glucose Reference Range is dependent on time and content of last meal. Glucose of more than 200 mg/dL in a nonstressed, ambulatory subject supports the diagnosis of Diabetes Mellitus.ADA recommended reference rangeRandom Glucose Reference Range is dependent on time and content of last meal. Glucose of more than 200 mg/dL in a nonstressed, ambulatory subject supports the diagnosisof Diabetes Mellitus.Serum or plasma potassium measurement (moles/volume)Ordered By: Elham Mendoza on 37-99-7463Jabliczln [Moles/Vol]3.9 mmol/L3.5-5.1 [facility] Hospitalerum or plasma sodium measurement (moles/volume)Ordered By: Elham Mendoza on 96-59-4787Tfilyz [Moles/Vol]139 mmol/Y835-847FywmzsgxyMartins Ferry Hospitalerum or plasma total carbon dioxide measurement (moles/volume)Ordered By: Elham Mendoza on 24-65-5220SB5 [Moles/Vol]28.1 mmol/L22.0-30.0[facility] Ferry Hospitalerum or plasma urea nitrogen measurement (mass/volume)Ordered By: Elham Mendoza on 70-71-5176Rzrz nitrogen [Mass/Vol]6 mg/dL9-23[facility] CenterNo Panel InformationOrdered By: Alcides Moya on 85-57-3404Xhcdlap Glucose Comment Glu2: cleaned [facility] HospitalCT biopsyOrdered By: Amanda Jaimes on 07-59-3764Kplnbtspymu [Mass/Vol]173 mg/nT937-507XuvprnllfKettering Health – Soin Medical CenterIron [Mass/volume] in Serum or PlasmaOrdered By: Amanda Jaimes on 74-83-6447Ghdz [Mass/Vol]56 ug/uD65-389CavvmuokiKettering Health – Soin Medical CenterIron binding capacity [Mass/volume] in Serum or PlasmaOrdered By: Amanda Jaimes on 92-82-3762Xjiq binding capacity [Mass/Vol]242 ug/gX827-544FowxjncyvKettering Health – Soin Medical CenterIron saturation [Mass Fraction] in Serum or PlasmaOrdered By: Amanda Jaimes on 70-35-8515Kkuq saturation [Mass fraction]23.0 %20-50[facility] Medical CenterGlucose Glucometer (BldC) [Mass/Vol]Ordered By: Alcides Moya on 67-70-5217Uzpohnq [Mass/Vol]146 mg/dLKettering Health – Soin Medical Center Comment on above:Random Glucose Reference Range is dependent on time and content of last meal. Glucose of more than 200 mg/dL in a nonstressed, ambulatory subject supports the diagnosis of Diabetes Mellitus.Laboratory - Coagulation Ordered By: Alcides Moya on 24-45-4270PL Coag (PPP) [Time]29.5 s9.0-12.9 [facility] CenterNo Panel InformationOrdered By: Alcides Moya on 98-73-4250Iycceoe Glucose CommentGlu2: cleaned [facility] HospitalPlatelet poor plasma international normalized ratio (INR) by coagulation assay (relatOrdered By: Alcides Moya on 61-03-1054LKW Coag (PPP) [Relative time] 2.6 {INR}[facility] CenterComment on above:INR Therapeutic Range A) Pre- and Peroperative OAT started two weeks before surgery. NOT HIP SURGERY: 1.5 - 2.5 HIP SURGERY: 2 - 3 B) Primary and secondary prevention of venous THROMBOSIS: 2 - 3 C) Active venous thrombosis, pulmonary embolism and prevention of recurrent venous thrombosis: 2 - 3 D) Prevention of arterial thromboembolism including patients with mechanical heart valves: 3 - 4.5Albumin [Mass/volume] in Serum or PlasmaOrdered By: Alcides Moya on 63-78-7189Oojkgec [Mass/Vol]3.1 g/dL 3.2-5.5FTrinity Health System Twin City Medical CenterBasophils Auto (Bld) [#/Vol]Ordered By: Alcides Moya on 76-71-0998Luuwldppg (Bld) [#/Vol]0.0 10*3/uL0.0-0.2FTrinity Health System Twin City Medical CenterBasophils/100 WBC Auto (Bld)Ordered By: Alcides Moya on 22-23-3418Dijaxrbur/100 WBC (Bld)0.5 %.[facility] CenterBlood hemoglobin measurement (mass/volume)Ordered By: Alcides Moya on 11-12-2021 Hemoglobin (Bld) [Mass/Vol]12.5 g/dL11.8-15.4FTrinity Health System Twin City Medical Center Blood leukocytes automated count (number/volume)Ordered By: Alcides Moya on 36-01-2918NEM (Bld) [#/Vol]5.0 10*3/uL4.5-11.0[facility] Creatinine and Glomerular filtration rate.predicted panel (S/P/Bld)Ordered By: Alcides Moya on 58-89-7740Recvynxtpt [Mass/Vol]0.55 mg/dL0.44-1.03[facility] CenterEosinophils Auto (Bld) [#/Vol]Ordered By: Alcides Moya on 17-18-5737Rpfyeelcktd (Bld) [#/Vol]0.2 10*3/uL0.0-0.45[facility] CenterEosinophils/100 WBC Auto (Bld)Ordered By: Alcides Moya on 66-90-7492Aaztqffffyd/100 WBC (Bld)3.8 %.[facility] Erythrocyte distribution width Auto (RBC) [Ratio]Ordered By: Alcides Moya on 72-54-7136Krquukwaanu distribution width (RBC) [Ratio]17.3 %11.9-15.3FTrinity [facility] CenterEstimated glomerular filtration rate (GFR) non- AmericanOrdered By: Alcides Moya on 21-27-2973ZFY/1.73 sq M.predicted among non- blacks MDRD (S/P/Bld) [Vol rate/Area]> 60 mL/MinKettering Health – Soin Medical CenterGlobulin Calc (S) [Mass/Vol]Ordered By: Alcides Moya on 22-38-5331Dcrmtkwm (S) [Mass/Vol]3.7 g/dLKettering Health – Soin Medical CenterGlucose Glucometer (BldC) [Mass/Vol]Ordered By: Alcides Moya on 78-62-9688Lmfybeo [Mass/Vol]212 mg/dLKettering Health – Soin Medical CenterComment on above:Random Glucose Reference Range is dependent on time and content of last meal. Glucose of more than 200 mg/dL in a nonstressed, ambulatory subject supports the diagnosis of Diabetes Mellitus.Hematocrit Auto (Bld) [Volume fraction]Ordered By: Alcides Moya on 59-47-6069Btzesntjgk (Bld) [Volume fraction]38.9 %34.0-46.4FTrinity Health System Twin City Medical CenterLaboratory - CoagulationOrdered By: Alcides Moya on 31-56-1365YJ Coag (PPP) [Time]34.1 s9.0-12.9[facility] CenterLaboratory - Hematology and Cell countsOrdered By: Alcides Moya on 51-50-1954Ikzkeefer RBC/100 WBC (Bld) [Ratio]0.0 %0-0.5FTrinity Health System Twin City Medical CenterLymphocytes Auto (Bld) [#/Vol]Ordered By: Alcides Moya on 11-69-6475Vzfybcxpzkf (Bld) [#/Vol]2.0 10*3/uL1.00-4.8[facility] CenterLymphocytes/100 WBC Auto (Bld)Ordered By: Alcides Moya on 10-82-6428Asdhbnibzez/100 WBC (Bld)39.7 %. [facility]H Auto (RBC) [Entitic mass]Ordered By: Alcides Moya on 24-66-3179GNC (RBC) [Entitic mass]29.2 pg24.7-34.3FTrinity Health System [facility] City Medical CenterMCHC Auto (RBC) [Mass/Vol]Ordered By: Alcides Moya on 11-12-2021 MCHC (RBC) [Mass/Vol]32.2 g/dL32.0-35.0[facility] Medical CenterMCV Auto (RBC) [Entitic vol]Ordered By: Alcides Moya on 74-67-7480LGH (RBC) [Entitic vol]90.6 zO67-384GwpadhmxbKettering Health – Soin Medical CenterMonocytes Auto (Bld) [#/Vol] Ordered By: Alcides Moya on 36-73-8939Loanwrsyh (Bld) [#/Vol]0.5 10*3/uL0.0-0.8 [facility] CenterMonocytes/100 WBC Auto (Bld)Ordered By: Alcides Moya on 24-96-0999Wfvsaeasb/100 WBC (Bld)10.1 %.[facility] Medical CenterNeutrophils Auto (Bld) [#/Vol]Ordered By: Alcides Moya on 11-12-2021 Neutrophils (Bld) [#/Vol]2.3 10*3/uL1.8-7.7FTrinity Health System [facility] Neutrophils/100 WBC Auto (Bld)Ordered By: Alcides Moya on 11-12-2021 Neutrophils/100 WBC (Bld)45.9 %.[facility] CenterNo Panel InformationOrdered By: Alcides Moya on 26-76-3160Bhxzave Glucose CommentGlu2: cleaned meterKettering Health – Soin Medical CenterEstimated GFR ()> 60 mL/MinKettering Health – Soin Medical CenterComment on above:GFR estimated reference range: According to KDOQI guidelines, <60 ml/min/1.73m2 is sufficient todiagnose a patient with chronic kidney disease.Pharmacy Creatinine Clearance (Chem64.44[facility] Medical CenterPlatelet mean volume Auto (Bld) [Entitic vol]Ordered By: Alcides Moya on 36-12-0541Qhvwcilf mean volume (Bld) [Entitic vol]8.6 fL6.3-10.7FTrinity Health System [facility] Medical CenterPlatelet poor plasma international normalized ratio (INR) by coagulation assay (relatOrdered By: Alcides Moya on 47-45-4173PVF Coag (PPP) [Relative time]3.0 {INR}[facility] Medical CenterComment on above:INR Therapeutic Range A) Pre- and Peroperative OAT started two weeks before surgery. NOT HIP SURGERY: 1.5 - 2.5 HIP SURGERY: 2 - 3 B) Primary and secondary prevention of venous THROMBOSIS: 2 - 3 C) Active venous thrombosis, pulmonary embolism and prevention of recurrent venous thrombosis: 2 - 3 D) Prevention of arterial thromboembolism including patients with mechanical heart valves: 3 - 4.5Platelets Auto (Bld) [#/Vol]Ordered By: Alcides Moya on 39-02-7240Zikaopgpy (Bld) [#/Vol]241 10*3/uL 150-450[facility] Medical CenterProtein [Mass/volume] in Serum or Plasma Ordered By: Alcides Moya on 67-07-6460Ljdfexo [Mass/Vol]6.8 g/dL6.1-7.9[facility] Medical CenterRBC Auto (Bld) [#/Vol]Ordered By: Alcides Moya on 40-68-5590HTJ (Bld) [#/Vol]4.29 10*6/uL3.60-5.00[facility]erry Hospitalerum or plasma alanine aminotransferase measurement without P-5'-P (enzymatic activiOrdered By: Alcides Moya on 02-31-9517GTG No additional P-5'-P [Catalytic activity/Vol]13 U/N70-76ZzqcinkezMartins Ferry Hospitalerum or plasma albumin/globulin mass ratioOrdered By: Alcides Moya on 11-12-2021 Albumin/Globulin [Mass ratio]0.8 {ratio}[facility] Hospitalerum or plasma alkaline phosphatase measurement (enzymatic activity/volume)Ordered By: Alcides Moya on 36-56-7761MWE [Catalytic activity/Vol]84 U/M34-86CeqbhelswMartins Ferry Hospitalerum or plasma anion gap determinationOrdered By: Alcides Moya on 98-38-9441Oawfc gap [Moles/Vol]11.9 mmol/L6.0-15.0[facility] Hospitalerum or plasma aspartate aminotransferase measurement (enzymatic activity/volume)Ordered By: Alcides Moya on 57-11-7026JES [Catalytic activity/Vol]22 U/V51-48JfelczywrMartins Ferry Hospitalerum or plasma calcium measurement (mass/volume)Ordered By: Alcides Moya on 68-77-1015Tjpomat [Mass/Vol]9.2 mg/dL8.2-10.2FMercy Health St. Elizabeth Boardman Hospitalerum or plasma chloride measurement (moles/volume)Ordered By: Alcides Moya on 11-12-2021 Chloride [Moles/Vol]100 mmol/X41-616NsjmlcstvMartins Ferry Hospitalerum or plasma glucose measurement (mass/volume)Ordered By: Alcides Moya on 11-12-2021 Glucose [Mass/Vol]130 mg/qB75-900KqjoxxymdKettering Health – Soin Medical CenterComment on above:ADA recommended reference range Random Glucose Reference Range is dependent on time and content of last meal. Glucose of more than 200 mg/dL in a nonstressed, ambulatory subject supports the diagnosis of Diabetes Mellitus.Serum or plasma potassium measurement (moles/volume)Ordered By: Alcides Moya on 47-58-4850Uslctbcfb [Moles/Vol]3.9 mmol/L3.5-5.1FMercy Health St. Elizabeth Boardman Hospitalerum or plasma prealbumin measurement (mass/volume)Ordered By: Alcides Moya on 30-44-7209Uhttpdcqvs [Mass/Vol]21.7 mg/dL18.0-38.0[facility] Hospitalerum or plasma sodium measurement (moles/volume)Ordered By: Alcides Moya on 12-83-1005Hcflub [Moles/Vol]139 mmol/I613-873RqeolifstMartins Ferry Hospitalerum or plasma total bilirubin measurement (mass/volume)Ordered By: Alcides Moya on 11-12-2021 Bilirubin [Mass/Vol]0.8 mg/dL0.3-1.2FMercy Health St. Elizabeth Boardman Hospitalerum or plasma total carbon dioxide measurement (moles/volume)Ordered By: Alcides Moya on 88-13-6768HY5 [Moles/Vol]31.0 mmol/L22.0-30.0[facility] Hospitalerum or plasma urea nitrogen measurement (mass/volume)Ordered By: Alcides Moya on 88-68-3170Zkgj nitrogen [Mass/Vol]8 mg/dL9-[facility] CenterGlucose Glucometer (BldC) [Mass/Vol]Ordered By: Gaye Claire on 66-42-1027Qkgilcl [Mass/Vol]127 mg/dLKettering Health – Soin Medical CenterComment on above:Random Glucose Reference Range is dependent on time and content of last meal. Glucose of more than 200 mg/dL in a nonstressed, ambulatory subject supports the diagnosis of Diabetes Mellitus.Laboratory - CoagulationOrdered By: Enrrique Mota on 35-07-1893ZQ Coag (PPP) [Time]31.5 s9.0-12.9[facility] CenterNo Panel InformationOrdered By: Gaye Claire on 11-11-2021 Bedside Glucose CommentGlu2: cleaned [facility] Platelet poor plasma international normalized ratio (INR) by coagulation assay (relatOrdered By: Enrrique Mota on 08-25-1872QTN Coag (PPP) [Relative time]2.7 {INR}[facility] CenterComment on above:INR Therapeutic Range A) Pre- and Peroperative OAT started two weeks before surgery. NOT HIP SURGERY: 1.5 - 2.5 HIP SURGERY: 2 - 3 B) Primary and secondary prevention of venous THROMBOSIS: 2 - 3 C) Active venous thrombosis, pulmonary embolism and prevention of recurrent venous thrombosis: 2 - 3 D) Prevention of arterial thromboembolism including patients with mechanical heart valves: 3 - 4.5INR Therapeutic Range A) Pre- and Peroperative OAT started two weeks before surgery. NOT HIP SURGERY: 1.5 - 2.5 HIP SURGERY: 2 - 3B) Primary and secondary prevention of venous THROMBOSIS: 2 - 3C) Active venous thrombosis, pulmonary embolismand prevention of recurrent venous thrombosis: 2 - 3D) Prevention of arterial thromboembolismincluding patients with mechanical heart valves: 3 - 4.5Basophils Auto (Bld) [#/Vol]Ordered By: Faustina Barr on 58-47-6533Vkvkcgylr (Bld) [#/Vol]0.0 10*3/uL0.0-0.2FTrinity Health System [facility] City Medical CenterBasophils/100 WBC Auto (Bld)Ordered By: Faustina Barr on 04-17-2384Ecjvfwyrt/100 WBC (Bld)0.5 %. [facility] CenterBlood hemoglobin measurement (mass/volume) Ordered By: Faustina Barr on 42-03-7759Hlxmvogypi (Bld) [Mass/Vol]11.8 g/dL 11.8-15.4FTrinity Health System [facility] CenterBlood leukocytes automated count (number/volume)Ordered By: Faustina Barr on 93-70-3616MOR (Bld) [#/Vol]5.6 10*3/uL4.5-11.0[facility] CenterCreatinine and Glomerular filtration rate.predicted panel (S/P/Bld)Ordered By: Faustina Barr on 49-16-1215Uuydnwktkg [Mass/Vol]0.63 mg/dL0.44-1.03[facility] CenterEosinophils Auto (Bld) [#/Vol]Ordered By: Faustina Barr on 11-06-2021 Eosinophils (Bld) [#/Vol]0.2 10*3/uL0.0-0.45[facility] Eosinophils/100 WBC Auto (Bld)Ordered By: Faustina Barr on 11-06-2021 Eosinophils/100 WBC (Bld)3.9 %.[facility] CenterErythrocyte distribution width Auto (RBC) [Ratio]Ordered By: Faustina Barr on 11-06-2021 Erythrocyte distribution width (RBC) [Ratio]16.6 %11.9-15.3FTrinity Health System [facility] CenterEstimated glomerular filtration rate (GFR) non- Ordered By: Faustina Barr on 49-49-1768ICI/1.73 sq M.predicted among non-blacks MDRD (S/P/Bld) [Vol rate/Area]> 60 mL/MinKettering Health – Soin Medical Center Hematocrit Auto (Bld) [Volume fraction]Ordered By: Faustina Barr on 11-06-2021 Hematocrit (Bld) [Volume fraction]37.0 %34.0-46.4FTrinity Health System [facility] CenterLaboratory - Hematology and Cell countsOrdered By: Faustina Barr on 09-88-2407Uncxcksnd RBC/100 WBC (Bld) [Ratio]0.1 %0-0.5FTrinity Health System [facility] Medical CenterLymphocytes Auto (Bld) [#/Vol]Ordered By: Faustina Barr on 16-80-4306Ipgkesotsyw (Bld) [#/Vol]2.1 10*3/uL1.00-4.8[facility] CenterLymphocytes/100 WBC Auto (Bld)Ordered By: Faustina Barr on 11-06-2021 Lymphocytes/100 WBC (Bld)37.6 %.[facility] HospitalH Auto (RBC) [Entitic mass]Ordered By: Faustina Barr on 52-35-7585PZJ (RBC) [Entitic mass] 28.8 pg24.7-34.3FTrinity Health System [facility] Medical CenterMCHC Auto (RBC) [Mass/Vol] Ordered By: Faustina Barr on 96-97-6574EKIE (RBC) [Mass/Vol]31.9 g/dL32.0-35.0 [facility] CenterMCV Auto (RBC) [Entitic vol]Ordered By: Faustina Barr on 95-70-0721FSL (RBC) [Entitic vol]90.5 iS31-707GxlfxdizjKettering Health – Soin Medical CenterMonocytes Auto (Bld) [#/Vol]Ordered By: Faustina Barr on 11-15-5018Eiurqrmsa (Bld) [#/Vol]0.7 10*3/uL0.0-0.8[facility] CenterMonocytes/100 WBC Auto (Bld)Ordered By: Faustina Barr on 11-06-2021 Monocytes/100 WBC (Bld)12.7 %.[facility] CenterNeutrophils Auto (Bld) [#/Vol]Ordered By: Faustina Barr on 82-97-6780Ehwyglvtmsk (Bld) [#/Vol] 2.5 10*3/uL1.8-7.7FTrinity Health System [facility] Medical CenterNeutrophils/100 WBC Auto (Bld)Ordered By: Faustina Barr on 67-53-8573Fdlfdskivai/100 WBC (Bld)45.3 %. [facility] CenterNo Panel InformationOrdered By: Faustina Barr on 96-68-7299Kelhkdory GFR ()> 60 mL/MinKettering Health – Soin Medical CenterComment on above:GFR estimated reference range: According to KDOQI guidelines, <60 ml/min/1.73m2 is sufficient todiagnose a patient with chronic kidney disease.Pharmacy Creatinine Clearance (Chem65.08[facility] CenterPlatelet mean volume Auto (Bld) [Entitic vol]Ordered By: Faustina Barr on 03-17-5347Wwxnqutf mean volume (Bld) [Entitic vol]8.3 fL6.3-10.7 [facility] CenterPlatelets Auto (Bld) [#/Vol]Ordered By: Faustina Barr on 37-80-7741Fwcgkxbqs (Bld) [#/Vol]298 10*3/eB316-170VzklycuibKettering Health – Soin Medical CenterRBC Auto (Bld) [#/Vol]Ordered By: Faustina Barr on 52-48-6072BUW (Bld) [#/Vol]4.09 10*6/uL3.60-5.00[facility] Hospitalerum or plasma calcium measurement (mass/volume)Ordered By: Faustina Barr on 18-28-3591Bkacoju [Mass/Vol]9.1 mg/dL8.2-10.2FMercy Health St. Elizabeth Boardman Hospitalerum or plasma chloride measurement (moles/volume)Ordered By: Faustina Barr on 90-09-7776Fqcmdbcb [Moles/Vol]98 mmol/M74-732WtomczycoMartins Ferry Hospitalerum or plasma glucose measurement (mass/volume)Ordered By: Faustina Barr on 29-95-3118Fzhwkih [Mass/Vol]159 mg/rD29-828JonldglpaKettering Health – Soin Medical CenterComment on above:ADA recommended reference range Random Glucose Reference Range is dependent on time and content of last meal. Glucose of more than 200 mg/dL in a nonstressed, ambulatory subject supports the diagnosis of Diabetes Mellitus.ADA recommended reference rangeRandom Glucose Reference Range is dependent on time and content of last meal. Glucose of more than 200 mg/dL in a nonstressed, ambulatory subject supports the diagnosisof Diabetes Mellitus.Serum or plasma potassium measurement (moles/volume)Ordered By: Faustina Barr on 02-34-9322Ermdmccsh [Moles/Vol]3.3 mmol/L3.5-5.1FMercy Health St. Elizabeth Boardman Hospitalerum or plasma sodium measurement (moles/volume)Ordered By: Faustina Barr on 20-19-9214Vwtwrl [Moles/Vol]140 mmol/Z079-164ZeuomhvacMartins Ferry Hospitalerum or plasma total carbon dioxide measurement (moles/volume)Ordered By: Faustina Barr on 51-56-2974JK5 [Moles/Vol]33.3 mmol/L 22.0-30.0[facility] Hospitalerum or plasma urea nitrogen measurement (mass/volume)Ordered By: Faustina Barr on 64-13-7099Ofmq nitrogen [Mass/Vol]6 mg/dL9-23[facility] CenterUrine culture routine Ordered By: Marvin Peter on 16-49-1868Ihgkmphn identified Cx Nom (U)Escherichia coliKettering Health – Soin Medical CenterAlbumin [Mass/volume] in Serum or Plasma Ordered By: Marvin Peter on 28-02-6213Uvkmsvi [Mass/Vol]3.4 g/dL3.2-5.5FTrinity Health System Twin City Medical CenterAutomated erythrocytes count in urine sediment (number/area)Ordered By: Marvin Peter on 36-73-0036MTY Auto (Urine sed) [#/Area] Innumerable [HPF]0-4FTrinity Health System Twin City Medical CenterAutomated leukocytes count in urine sediment (number/area)Ordered By: Marvin Peter on 59-44-4705JYD Auto (Urine sed) [#/Area]50-100 [HPF]0-4FTrinity Health System [facility] City Medical CenterAutomated urine hyaline casts count (number/volume)Ordered By: Marvin Peter on 11-04-2021 Hyaline casts Auto (U) [#/Vol]Rare [LPF]0-[facility] Bilirubin Test strip Ql (U)Ordered By: Marvin Peter on 91-41-5608Nolwvvkoe Ql (U) NegativeNegativeKettering Health – Soin Medical CenterCOVID CepheidOrdered By: Marvin Peter on 65-05-3420ICYL-CoV-2 (COVID-19) Ab IA QlNegativeNegativeFirelands Regional Medical CenterComment on above:This is a duplicate [employer] Xpert Xpress CoV-2/Flu/RSV Plus RNA by RT-PCR result to be used for statistical tracking purpose only.SARS-CoV-2 (COVID-19) RNA PIPE+probe Ql (Unsp spec)[facility] CenterCOVID-19 SOFIAOrdered By: Marvin Peter on 11-04-2021 SARS-CoV+SARS-CoV-2 (COVID-19) Ag IA.rapid Ql (Resp)NegativeNegativeKettering Health – Soin Medical CenterComment on above:This is a duplicate [employer] SARS Antigen (LAMONT) result to be used for statistical tracking purpose only.Casts typing in urine sediment by light microscopyOrdered By: Marvin Peter on 29-10-9493Hmypk LM Nom (Urine sed)None seen [LPF]None SeenKettering Health – Soin Medical CenterColor Auto (U)Ordered By: Marvin Peter on 63-62-0497Tcxqf (U)YellowYellowKettering Health – Soin Medical CenterGlobulin Calc (S) [Mass/Vol]Ordered By: Marvin Peter on 11-30-7593Gnfzezmv (S) [Mass/Vol]3.7 g/dLKettering Health – Soin Medical Center Ketones Auto test strip (U) [Mass/Vol]Ordered By: Marvin Peter on 11-04-2021 Ketones (U) [Mass/Vol]1+NegativeKettering Health – Soin Medical CenterNitrite Test strip Ql (U)Ordered By: Marvin Peter on 19-08-7189Ilguydq Ql (U)PositiveNegative [facility] CenterNo Panel InformationOrdered By: Enrrique Mota on 70-91-371805451148-Igdxoju Vitamin D Total71.4 ng/kP23-468TzkvlgcooKettering Health – Soin Medical CenterComment on above:VITAMIN D STATUS 25(OH)VITAMIN D RANGE (ng/mL) Deficient <20 Insufficient 20 to <30 Sufficient 30 to 100 Reference: Earl MF,Ken NC, Yoandy PEDERSEN, et al. Evaluation,treatment, and prevention of vitamin D deficiency; an Endocrine Society clinical practice guideline. JCEM. 2010; 96(7):1911-30.VITAMIN D STATUS 25(OH)VITAMIN D RANGE (ng/mL) Deficient <20 Insufficient 20 to <65Wvfsiabbgu26 to 100Reference: Earl MF,Ken NC, Yoandy PEDERSEN, et al. Evaluation,treatment, and prevention of vitamin D deficiency; an Endocrine Society clinical practice guideline. JCEM. 2010; 96(7):1911-30.Protein Auto test strip (U) [Mass/Vol]Ordered By: Marvin Peter on 09-32-8876Dzjfmsm (U) [Mass/Vol]30 mg/dLNegativeKettering Health – Soin Medical CenterProtein [Mass/volume] in Serum or PlasmaOrdered By: Marvin Peter on 34-63-3849Kfhmqdm [Mass/Vol]7.1 g/dL6.1-7.9[facility] Hospitalerum or plasma alanine aminotransferase measurement without P-5'-P (enzymatic activiOrdered By: Marvin Peter on 46-16-8460KFY No additional P-5'-P [Catalytic activity/Vol]7 U/L10-60 [facility] Hospitalerum or plasma albumin/globulin mass ratio Ordered By: Marvin Peter on 13-91-8800Ypqweod/Globulin [Mass ratio]0.9 {ratio} [facility] Hospitalerum or plasma alkaline phosphatase measurement (enzymatic activity/volume)Ordered By: Marvin Peter on 37-65-9550BPZ [Catalytic activity/Vol]80 U/E59-01GtfhqeyuqMartins Ferry Hospitalerum or plasma aspartate aminotransferase measurement (enzymatic activity/volume)Ordered By: Marvin Peter on 80-90-1261HTO [Catalytic activity/Vol]16 U/G89-79XweezcagrMartins Ferry Hospitalerum or plasma total bilirubin measurement (mass/volume) Ordered By: Marvin Peter on 06-84-2723Hzqpsxyxu [Mass/Vol]1.2 mg/dL0.3-1.2 [facility] Hospitalpecific gravity Auto test strip (U) [Rel density]Ordered By: Marvin Peter on 81-51-5943Hlzkkxkk gravity (U) [Rel density] 1.0291.001-1.030[facility] Ferry Hospitalquamous epithelial cells detection in urine sediment by light microscopyOrdered By: Marvin Peter on 42-89-2859Rlkxiuxtzj cells.squamous LM Ql (Urine sed)5-9 [HPF]0-2FTrinity Health System Twin City Medical CenterTS DL <= 0.005 mIU/L QnOrdered By: Enrrique Mota on 39-39-3156UPV Qn2.09 m[IU]/L0.45-5.33[facility] CenterUrine bacteria detection by automated methodOrdered By: Marvin Peter on 11-04-2021 Bacteria Auto Ql (U)4+None SeenKettering Health – Soin Medical CenterUrine clarity by refractometry automatedOrdered By: Marvin Peter on 38-74-5275Lyohzlf Refractometry automated (U)CloudyCleGalion Community HospitalUrine glucose measurement by automated test strip (mass/volume)Ordered By: Marvin Peter on 82-84-9561Mreshzl Auto test strip (U) [Mass/Vol]Normal mg/dLSelect Medical OhioHealth Rehabilitation HospitalUrine hemoglobin detection by automated test stripOrdered By: Marvin Peter on 70-34-5313Uodkfdqzgs Auto test strip Ql (U)3+Negative [facility] CenterUrine leukocyte esterase detection by automated test stripOrdered By: Marvin Peter on 14-74-5608Wagkbftnt esterase Auto test strip Ql (U)3+NegativeKettering Health – Soin Medical CenterUrobilinogen Auto test strip (U) [Mass/Vol]Ordered By: Marvin Peter on 12-83-0071Lkueoivyldwq (U) [Mass/Vol]Normal mg/dLNoRegency Hospital Cleveland EastpH Auto test strip (U)Ordered By: Marvin Peter on 60-89-4997gV (U)5.5 [pH]5.0-9.0[facility] CenterProthrombin Time INRon 82-16-4981QWF Coag (PPP) [Relative time]4.5 {INR}[employer] Other Prothrombin Time INRNortGold Capital Other Urine culture routineOrdered By: Alton Valderrama on 72-83-7854Obcyugcl identified Cx Nom (U)Escherichia coliKettering Health – Soin Medical CenterProthrombin Time INRon 39-41-0059JLM Coag (PPP) [Relative time]3.3 {INR}[employer] Other Prothrombin Time INRNortPenn State Health [facility] imgSc[employer] Other Automated erythrocytes count in urine sediment (number/area)Ordered By: Alton Valderrama on 26-07-9415VNI Auto (Urine sed) [#/Area] 10-19 [HPF]0-4FTrinity Health System Twin City Medical CenterAutomated leukocytes count in urine sediment (number/area)Ordered By: Alton Valderrama on 19-39-0756UID Auto (Urine sed) [#/Area]20-49 [HPF]0-4FTrinity Health System [facility] Medical CenterBasophils Auto (Bld) [#/Vol]Ordered By: Alton Valderrama on 15-81-3822Pbecgdymp (Bld) [#/Vol] 0.0 10*3/uL0.0-0.2FTrinity Health System [facility] Medical CenterBasophils/100 WBC Auto (Bld) Ordered By: Alton Valderrama on 39-32-7631Lirlepzej/100 WBC (Bld)0.4 %.[facility] CenterBilirubin Test strip Ql (U)Ordered By: Alton Valderrama on 83-29-6644Javuiommk Ql (U)NegativeNegativeKettering Health [facility] CenterBlood hemoglobin measurement (mass/volume)Ordered By: Alton Valderrama on 09-28-2021 Hemoglobin (Bld) [Mass/Vol]12.3 g/dL11.8-15.4FTrinity Health System [facility] Blood leukocytes automated count (number/volume)Ordered By: Alton Valderrama on 75-28-7763ZAO (Bld) [#/Vol]5.1 10*3/uL4.5-11.0[facility] Body fluid albumin measurement (mass/volume)Ordered By: Alton Valderrama on 32-99-2863Jpymufw (Body fld) [Mass/Vol]3.3 g/dL3.2-5.5FTrinity Health System Twin City Medical CenterColor Auto (U)Ordered By: Alton Valderrama on 38-43-4488Brjvs (U)YellowYellow [facility] CenterCreatinine and Glomerular filtration rate.predicted panel (S/P/Bld)Ordered By: Alton Valderrama on 43-83-6631Irbttwimmv [Mass/Vol]0.67 mg/dL0.44-1.03[facility] CenterEosinophils Auto (Bld) [#/Vol]Ordered By: Alton Valderrama on 66-44-5607Ineqyiwxmio (Bld) [#/Vol]0.0 10*3/uL0.0-0.45[facility] CenterEosinophils/100 WBC Auto (Bld) Ordered By: Alton Valderrama on 04-87-9022Kqdfzdrrhsn/100 WBC (Bld)0.4 %.[facility] CenterErythrocyte distribution width Auto (RBC) [Ratio]Ordered By: Alton Valderrama on 94-69-9463Jjbbavntmsb distribution width (RBC) [Ratio]15.9 % 11.9-15.3FTrinity Health System [facility] Medical CenterEstimated glomerular filtration rate (GFR) non- AmericanOrdered By: Alton Valderrama on 78-54-1530MJW/1.73 sq M.predicted among non-blacks MDRD (S/P/Bld) [Vol rate/Area]> 60 mL/MinKettering Health – Soin Medical CenterGlobulin Calc (S) [Mass/Vol]Ordered By: Alton Valderrama on 09-16-0057Ojfngupv (S) [Mass/Vol]3.6 g/dLKettering Health – Soin Medical Center Hematocrit Auto (Bld) [Volume fraction]Ordered By: Alton Valderrama on 09-28-2021 Hematocrit (Bld) [Volume fraction]37.5 %34.0-46.4FTrinity Health System Twin City Medical CenterKetones Auto test strip (U) [Mass/Vol]Ordered By: Alton Valderrama on 07-84-5016Dxowplb (U) [Mass/Vol]2+NegativeKettering Health – Soin Medical Center Laboratory - Hematology and Cell countsOrdered By: Alton Valderrama on 09-28-2021 Nucleated RBC/100 WBC (Bld) [Ratio]0.0 %0-0.5FTrinity Health System [facility] Center Laboratory - UrinalysisOrdered By: Alton Valderrama on 35-76-0211Nsajxbe casts LM Ql (Urine sed)0-8 [LPF]0-8[facility] CenterLymphocytes Auto (Bld) [#/Vol]Ordered By: Alton Valderrama on 84-05-2581Hrefnvkeenw (Bld) [#/Vol]0.8 10*3/uL1.00-4.8[facility] CenterLymphocytes/100 WBC Auto (Bld) Ordered By: Alton Valderrama on 74-70-3910Txmsdegkhkp/100 WBC (Bld)16.2 %.[facility] CenterMCH Auto (RBC) [Entitic mass]Ordered By: Alton Valderrama on 75-91-9119KWS (RBC) [Entitic mass]29.5 pg24.7-34.3FTrinity Health System [facility] Medical CenterMCHC Auto (RBC) [Mass/Vol]Ordered By: Alton Valderrama on 31-72-7247XZYQ (RBC) [Mass/Vol]32.7 g/dL32.0-35.0[facility] [facility] CenterMCV Auto (RBC) [Entitic vol]Ordered By: Alton Valderrama on 80-46-6583FCT (RBC) [Entitic vol]90.3 kD31-620XynohynbuKettering Health – Soin Medical CenterMonocytes Auto (Bld) [#/Vol]Ordered By: Alton Valderrama on 12-77-5427Rtepmjogi (Bld) [#/Vol]0.7 10*3/uL0.0-0.8[facility] CenterMonocytes/100 WBC Auto (Bld)Ordered By: Alton Valderrama on 35-77-4865Chfkuerpk/100 WBC (Bld)13.9 %.[facility] Neutrophils Auto (Bld) [#/Vol]Ordered By: Alton Valderrama on 24-70-3648Fukkeiqirri (Bld) [#/Vol]3.5 10*3/uL1.8-7.7FTrinity Health System Twin City Medical CenterNeutrophils/100 WBC Auto (Bld)Ordered By: Alton Valderrama on 85-24-3769Bsbdqaftklu/100 WBC (Bld) 69.1 %.[facility] CenterNitrite Test strip Ql (U)Ordered By: Alton Valderrama on 55-45-6961Xvdldju Ql (U)PositiveNegativeKettering Health – Soin Medical CenterNo Panel InformationOrdered By: Alton Valderrama on 09-28-2021 Estimated GFR ()> 60 mL/MinKettering Health – Soin Medical Center Comment on above:GFR estimated reference range: According to KDOQI guidelines, <60 ml/min/1.73m2 is sufficient todiagnose a patient with chronic kidney disease.Pharmacy Creatinine Clearance (Chem66.85[facility] Medical CenterPlatelet mean volume Auto (Bld) [Entitic vol]Ordered By: Alton Valderrama on 66-20-5962Kpvufoam mean volume (Bld) [Entitic vol]8.6 fL6.3-10.7FTrinity Health System Twin City Medical CenterPlatelets Auto (Bld) [#/Vol]Ordered By: Alton Valderrama on 45-48-0218Mgznupqzu (Bld) [#/Vol]154 10*3/uY583-190HmggqzaznKettering Health – Soin Medical CenterProtein Auto test strip (U) [Mass/Vol]Ordered By: Alton Valderrama on 38-37-3803Xzzpksm (U) [Mass/Vol]NegativeNegativeKettering Health – Soin Medical CenterProtein [Mass/volume] in Serum or PlasmaOrdered By: Alton Valderrama on 74-95-8259Slnutem [Mass/Vol]6.9 g/dL6.1-7.9[facility] Medical CenterRBC Auto (Bld) [#/Vol]Ordered By: Alton Valderrama on 87-42-6213CXP (Bld) [#/Vol]4.16 10*6/uL3.60-5.00[facility]erry Hospitalerum or plasma alanine aminotransferase measurement without P-5'-P (enzymatic activiOrdered By: Alton Valderrama on 94-45-5811SRL No additional P-5'-P [Catalytic activity/Vol]7 U/L10-60 [facility] Hospitalerum or plasma albumin/globulin mass ratio Ordered By: Alton Valderrama on 88-13-8131Gnsvnag/Globulin [Mass ratio]0.9 {ratio} [facility] Hospitalerum or plasma alkaline phosphatase measurement (enzymatic activity/volume)Ordered By: Alton Valderrama on 79-21-5849AAN [Catalytic activity/Vol]51 U/S52-92BwwfkcztjMartins Ferry Hospitalerum or plasma aspartate aminotransferase measurement (enzymatic activity/volume)Ordered By: Alton Valderrama on 43-95-3894EMG [Catalytic activity/Vol]20 U/Z14-43TkgtnjiveMartins Ferry Hospitalerum or plasma calcium measurement (mass/volume)Ordered By: Alton Valderrama on 61-48-8135Wyzefrq [Mass/Vol]8.9 mg/dL8.2-10.2FMercy Health St. Elizabeth Boardman Hospitalerum or plasma chloride measurement (moles/volume) Ordered By: Alton Valderrama on 15-93-3724Yzmqdogc [Moles/Vol]95 mmol/L95-114 [facility] Hospitalerum or plasma glucose measurement (mass/volume)Ordered By: Alton Valderrama on 75-67-4416Fxjgpoo [Mass/Vol]146 mg/dL 70-100[facility] Medical CenterComment on above:ADA recommended reference range Random Glucose Reference Range is dependent on time and content of last meal. Glucose of more than 200 mg/dL in a nonstressed, ambulatory subject supports the diagnosis of Diabetes Mellitus.Serum or plasma potassium measurement (moles/volume)Ordered By: Alton Valderrama on 77-18-1147Llrtqayfx [Moles/Vol]3.5 mmol/L3.5-5.1FMercy Health St. Elizabeth Boardman Hospitalerum or plasma sodium measurement (moles/volume)Ordered By: Alton Valderrama on 47-14-4124Zgkaqi [Moles/Vol]136 mmol/M724-266JprtzddvfMartins Ferry Hospitalerum or plasma total bilirubin measurement (mass/volume)Ordered By: Alton Valderrama on 89-25-6422Matpeudjj [Mass/Vol]1.0 mg/dL0.3-1.2FMercy Health St. Elizabeth Boardman Hospitalerum or plasma total carbon dioxide measurement (moles/volume)Ordered By: lAton Valderrama on 09-28-2021 CO2 [Moles/Vol]29.5 mmol/L22.0-30.0[facility] Hospitalerum or plasma urea nitrogen measurement (mass/volume)Ordered By: Alton Valderrama on 57-57-0952Hrps nitrogen [Mass/Vol]7 mg/dL9-23[facility] Specific gravity Auto test strip (U) [Rel density]Ordered By: Alton Valderrama on 43-01-9968Mcsgrhuh gravity (U) [Rel density]1.0131.001-1.030[facility] Hospitalquamous epithelial cells detection in urine sediment by light microscopyOrdered By: Alton Valderrama on 82-98-1488Qlvvsjuepg cells.squamous LM Ql (Urine sed)None seen [HPF]0-2FTrinity Health System Twin City Medical CenterUrine bacteria detection by automated methodOrdered By: Alton Valderrama on 17-75-9580Zpcwmexz Auto Ql (U)3+None [facility] HospitalUrine clarity by refractometry automatedOrdered By: Alotn Valderrama on 77-24-8642Bpcqrob Refractometry automated (U)CloudyClearFTrinity Health System Twin City Medical CenterUrine glucose measurement by automated test strip (mass/volume)Ordered By: Alton Valderrama on 58-14-0327Whfywii Auto test strip (U) [Mass/Vol]Normal mg/dLMartins Ferry HospitalUrine hemoglobin detection by automated test stripOrdered By: Alton Valderrama on 42-59-5360Hfzwbzekef Auto test strip Ql (U)2+ NegativeKettering Health – Soin Medical CenterUrine leukocyte esterase detection by automated test stripOrdered By: Alton Valderrama on 37-75-5104Itucllutv esterase Auto test strip Ql (U)2+NegativeKettering Health – Soin Medical CenterUrobilinogen Auto test strip (U) [Mass/Vol]Ordered By: Alton Valderrama on 83-19-5627Cmkabiwkvxlc (U) [Mass/Vol]Normal mg/dLSelect Medical OhioHealth Rehabilitation HospitalYeast detection in urine sediment by light microscopyOrdered By: Alton Valderrama on 80-00-3797Hielh LM Ql (Urine sed)None seen [HPF]None SeenKettering Health – Soin Medical CenterpH Auto test strip (U)Ordered By: Alton Valderrama on 70-23-6640uH (U) 6.5 [pH]5.0-9.0[facility] Medical CenterProthrombin Time INRon 56-81-4706ZSR Coag (PPP) [Relative time]2.1 {INR}[employer] Other Prothrombin Time INRNort [employer] Other Prothrombin Time INRon 13-44-1652JFY Coag (PPP) [Relative time]2.3 {INR}[facility] [employer] Other Prothrombin Time INRNortPenn State Health [facility] imgSc[employer] Other Complete Blood Count with Auto Diffon 07-16-2021 Basophils (Bld) [#/Vol]0.02 10*3/uLNormal0.00-0.20NoGalion Hospital SpecialistComment on above:Performed By: #### LIPD, TSH, CMP, VITD, CBCAD #### [facility] [address], [place] [id number]/100 WBC (Bld)0.3 %NormalUniversity Hospitals Samaritan [facility] Center SpecialistComment on above:Performed By: #### LIPD, TSH, CMP, VITD, CBCAD #### [facility] [address], [place] [id number] (Bld) [#/Vol]0.17 10*3/uLNormal0.02-0.50NoGalion Hospital SpecialistComment on above:Performed By: #### LIPD, TSH, CMP, VITD, CBCAD #### [facility] [address], [place] [id number]/100 WBC (Bld)2.8 %NormalNoGalion Hospital SpecialistComment on above:Performed By: #### LIPD, TSH, CMP, VITD, CBCAD #### [facility] [address], [place] [id number] distribution width (RBC) [Ratio]15.0 %Normal 11.0-15.0[facility] SpecialistComment on above:Performed By: #### LIPD, TSH, CMP, VITD, CBCAD #### [facility] [address], [place] [id number] (Bld) [Volume fraction]39.2 %Lfuldp92.0-47.0 [facility] SpecialistComment on above:Performed By: #### LIPD, TSH, CMP, VITD, CBCAD #### [facility] [address], [place] [id number] (Bld) [Mass/Vol]12.0 g/jXUldtna86.6-15.5NoGalion Hospital SpecialistComment on above:Performed By: #### LIPD, TSH, CMP, VITD, CBCAD #### [facility] [address], [place] [id number] (Bld) [#/Vol]1.7 10*3/uLNormal0.9-3.9NoGalion Hospital SpecialistComment on above:Performed By: #### LIPD, TSH, CMP, VITD, CBCAD #### [facility] [address], [place] [id number]/100 WBC (Bld)27.5 %NormalNoGalion Hospital SpecialistComment on above:Performed By: #### LIPD, TSH, CMP, VITD, CBCAD #### [facility] [address], [place] [id number] (RBC) [Entitic mass]29.4 stLwludz62.0-33.0NoGalion Hospital SpecialistComment on above:Performed By: #### LIPD, TSH, CMP, VITD, CBCAD #### [facility] [address], [place] [id number] (RBC) [Mass/Vol]30.6 g/dLLow32.0-36.0NoGalion Hospital SpecialistComment on above:Performed By: #### LIPD, TSH, CMP, VITD, CBCAD #### [facility] [address], [place] [id number] (RBC) [Entitic vol]96 wMHxexgb61-290Pdbaaszq [facility] SpecialistComment on above:Performed By: #### LIPD, TSH, CMP, VITD, CBCAD #### [facility] [address], [place] [id number] (Bld) [#/Vol]0.6 10*3/uLNormal0.2-0.9NoGalion Hospital SpecialistComment on above:Performed By: #### LIPD, TSH, CMP, VITD, CBCAD #### [facility] [address], [place] [id number]/100 WBC (Bld)10.5 %NormalUniversity Hospitals Samaritan [facility] Center SpecialistComment on above:Performed By: #### LIPD, TSH, CMP, VITD, CBCAD #### [facility] [address], [place] [id number] (Bld) [#/Vol]3.6 10*3/uLNormal1.5-7.8NoGalion Hospital SpecialistComment on above:Performed By: #### LIPD, TSH, CMP, VITD, CBCAD #### [facility] [address], [place] [id number]/100 WBC (Bld)58.6 %NormalNoGalion Hospital SpecialistComment on above:Performed By: #### LIPD, TSH, CMP, VITD, CBCAD #### [facility] [address], [place] [id number] mean volume (Bld) [Entitic vol]11.40 fLNormal 7.50-12.50NoGalion Hospital SpecialistComment on above:Performed By: #### LIPD, TSH, CMP, VITD, CBCAD #### [facility] [address], [place] [id number] (Bld) [#/Vol]193 10*3/oALdjhns287-377Zqihyagx [facility] SpecialistComment on above:Performed By: #### LIPD, TSH, CMP, VITD, CBCAD #### [facility] [address], [place] [id number] (Bld) [#/Vol]4.08 10*6/uLNormal3.90-5.20NoGalion Hospital SpecialistComment on above:Performed By: #### LIPD, TSH, CMP, VITD, CBCAD #### [facility] [address], [place] [id number]-KL63.8 bKQsqt32.0-50.0NoGal[facility] Hospital Specialist Comment on above:Performed By: #### LIPD, TSH, CMP, VITD, CBCAD #### [facility] [address], [place] [id number] (Bld) [#/Vol]6.1 10*3/uLNormal3.8-11.0NoGalion Hospital SpecialistComment on above:Performed By: #### LIPD, TSH, CMP, VITD, CBCAD #### [facility] [address], [place] [id number] Metabolic Panelon 22-61-9951Lwqlywu [Mass/Vol] 4.1 g/dLNormal3.6-5.1[facility] SpecialistComment on above:Performed By: #### LIPD, TSH, CMP, VITD, CBCAD #### [facility] [address], [place] [id number]/Globulin [Mass ratio]1.5 {ratio}Normal1.0-2.5NoGalion Hospital SpecialistComment on above:Performed By: #### LIPD, TSH, CMP, VITD, CBCAD #### [facility] [address], [place] [id number] [Catalytic activity/Vol]104 U/GTqhruo14-877Idqbgspt [facility] SpecialistComment on above:Performed By: #### LIPD, TSH, CMP, VITD, CBCAD #### [facility] [address], [place] [id number] [Catalytic activity/Vol]7 U/LNormal6-33NortSelect Medical Specialty Hospital [facility]on SpecialistComment on above:Result Comment: 02/11/2021 Female reference range changed.Performed By: #### LIPD, TSH, CMP, VITD, CBCAD #### [facility] [address], [place] [id number] gap [Moles/Vol]18 mmol/SFqpeer00-59Wtsytkqy [facility] SpecialistComment on above:Result Comment: Effective 03/19/2019 reference range changed.Performed By: #### LIPD, TSH, CMP, VITD, CBCAD #### [facility] [address], [place] [id number] [Catalytic activity/Vol]16 U/LNormal9-34NoGalion Hospital SpecialistComment on above:Performed By: #### LIPD, TSH, CMP, VITD, CBCAD #### [facility] [address], [place] [id number] [Mass/Vol]0.92 mg/dLNormal0.30-1.20NoGal[facility] Hospital SpecialistComment on above:Performed By: #### LIPD, TSH, CMP, VITD, CBCAD #### [facility] [address], [place] [id number]/CREA29 RatioHigh6-22NoGal[facility] Hospital Specialist Comment on above:Performed By: #### LIPD, TSH, CMP, VITD, CBCAD #### [facility] [address], [place] [id number] [Mass/Vol]9.5 mg/dLNormal8.6-10.2NortherBlanchard Valley [facility] SpecialistComment on above:Performed By: #### LIPD, TSH, CMP, VITD, CBCAD #### [facility] [address], [place] [id number] [Moles/Vol]99 mmol/HIpiaxr55-765Osbcikgn [facility] SpecialistComment on above:Performed By: #### LIPD, TSH, CMP, VITD, CBCAD #### [facility] [address], [place] [id number] [Moles/Vol]26 mmol/HMcdrfb68-48Ujhhbiqs [facility] SpecialistComment on above:Performed By: #### LIPD, TSH, CMP, VITD, CBCAD #### [facility] [address], [place] [id number] [Mass/Vol]0.5 mg/dLLow0.6-1.4NoGalion Hospital SpecialistComment on above:Performed By: #### LIPD, TSH, CMP, VITD, CBCAD #### [facility] [address], [place] [id number] mL/min/1.07r5Tndejf>60NortSelect Medical Specialty [facility] SpecialistComment on above:Performed By: #### LIPD, TSH, CMP, VITD, CBCAD #### [facility] [address], [place] [id number] mL/min/1.28s8Cmitxh>60NortSelect Medical Specialty [facility] SpecialistComment on above:Performed By: #### LIPD, TSH, CMP, VITD, CBCAD #### [facility] [address], [place] [id number] (S) [Mass/Vol]2.7 g/dLNormal1.9-3.7NoGalion Hospital SpecialistComment on above:Performed By: #### LIPD, TSH, CMP, VITD, CBCAD #### [facility] [address], [place] [id number] [Mass/Vol]222 mg/cRFcht86-86Ehtbqkjb [facility] SpecialistComment on above:Result Comment: For FASTING Glucose --- ADA reference ranges: Normal 65-99 mg/dl Prediabetes 100-125 Diabetes >/= 126Performed By: #### LIPD, TSH, CMP, VITD, CBCAD #### [facility] [address], [place] [id number] [Moles/Vol]4.7 mmol/LNormal3.5-5.5NoGal[facility] Hospital SpecialistComment on above:Performed By: #### LIPD, TSH, CMP, VITD, CBCAD #### [facility] [address], [place] [id number] [Mass/Vol]6.8 g/dLNormal6.1-8.1NortherBlanchard Valley [facility] SpecialistComment on above:Performed By: #### LIPD, TSH, CMP, VITD, CBCAD #### [facility] [address], [place] [id number] [Moles/Vol]138 mmol/UNxqckv769-135Xzaoigcn [facility] SpecialistComment on above:Performed By: #### LIPD, TSH, CMP, VITD, CBCAD #### [facility] [address], [place] [id number] nitrogen [Mass/Vol]15 mg/dLNormal7-25NortSelect Medical Specialty [facility] SpecialistComment on above:Performed By: #### LIPD, TSH, CMP, VITD, CBCAD #### [facility] [address], [place] [id number] A1Con 17-45-8853SJM041.38NormalNoGalion Hospital SpecialistComment on above:Performed By: #### A1C #### [facility] [address], [place] [id number] (Bld) [Mass fraction]8.4 %High4.0-6.0NoGalion Hospital SpecialistComment on above:Performed By: #### A1C #### [facility] [address], [place] [id number] Panelon 44-37-5542Mtmnsgwxqtt [Mass/Vol]172 mg/dLNormal 125-200NoGalion Hospital SpecialistComment on above:Result Comment: Low risk < 200mg/dL Borderline risk 201-239 mg/dl High risk > or equal to 240Performed By: #### LIPD, TSH, CMP, VITD, CBCAD #### [facility] [address], [place] [id number] in HDL [Mass/Vol]57 mg/dLNormal>40NoGalion Hospital SpecialistComment on above:Result Comment: High Cardiovascular Risk HDL <40 mg/dL Low Cardiovascular Risk HDL > or equal to 60 mg/dlPerformed By: #### LIPD, TSH, CMP, VITD, CBCAD #### [facility] [address], [place] [id number] in LDL [Mass/Vol]88 mg/dLNormalNoGalion Hospital SpecialistComment on above:Result Comment: LDL ATP III CLASSIFICATION LDL less than 100 mg/dl Optimal LDL 100-129 mg/dl Near or above optimal LDL 130-159 Borderline high LDL 160-189 High LDL greater than 189 mg/dl Very HighPerformed By: #### LIPD, TSH, CMP, VITD, CBCAD #### [facility] [address], [place] [id number] in VLDL [Mass/Vol]27 mg/dLNormalNoGalion Hospital SpecialistComment on above:Performed By: #### LIPD, TSH, CMP, VITD, CBCAD #### [facility] [address], [place] [id number].total/Cholesterol in HDL [Mass ratio]3 {ratio} NormalNortSelect Medical Specialty Hospital - [facility]on SpecialistComment on above:Performed By: #### LIPD, TSH, CMP, VITD, CBCAD #### [facility] [address], [place] [id number] [Mass/Vol]133 mg/iYCyhhyx98-347Dsfnsmyi [facility] SpecialistComment on above:Result Comment: TRIG ATPIII CLASSIFICATIONS TRIG less than 150 mg/dl Normal TRIG 150-199 mg/dl Borderline High TRIG 200-500 mg/dl High TRIG greather than 500 mg/dl Very HighPerformed By: #### LIPD, TSH, CMP, VITD, CBCAD #### [facility] [address], [place] [id number] 55-39-3031QBS4.480 uIU/mLNormal0.400-4.500NoGalion Hospital SpecialistComment on above:Performed By: #### LIPD, TSH, CMP, VITD, CBCAD #### [facility] [address], [place] [id number] B12on 37-20-4532Alhvxvinb (Vitamin B12) [Mass/Vol] 1009 pg/fKLsjt306-596Arvhuhhh [facility] SpecialistComment on above:Performed By: #### B12 #### [facility] [address], [place] [id number] D 25-OHon 21-48-2576SSH D 25 OH56 ng/mlNormal>29 [facility] SpecialistComment on above:Result Comment: Vitamin D Status Deficiency <20 ng/mL Insufficiency 20-29 ng/mL Optimal 30-100 ng/mL Possible Toxicity >=150 ng/mLPerformed By: #### LIPD, TSH, CMP, VITD, CBCAD #### [facility] [address] [place], [place] [id number] Time INRon 02-90-5444HMI Coag (PPP) [Relative time]5.2 {INR}[employer] Other Prothrombin Time [employer] Other Prothrombin Time INRon 00-17-8897PCM Coag (PPP) [Relative time]3.9 {INR}[employer] Other Prothrombin Time [employer] Other Prothrombin Time INRon 58-44-1210QCU Coag (PPP) [Relative time]3.2 {INR}[employer] Other Prothrombin Time [employer] Other Prothrombin Time INRon 12-04-2059SSE Coag (PPP) [Relative time]1.9 {INR}[employer] Other Prothrombin Time [employer] Other Prothrombin Time INRon 11-36-9199SMX Coag (PPP) [Relative time]2.2 {INR}[employer] Other Prothrombin Time [employer] Other Prothrombin Time INRon 34-97-3190HCK Coag (PPP) [Relative time]2.4 {INR}[employer] Other Prothrombin Time [employer] Other Office Visit (Ktwwh-Yuaaszid-LY)on 33-21-0485Ntdopc Visit (Jpfbp-Kyeznspn-SQ)History of Present IllnessALTON BARKER is here for [...] asleep and no acting out of dreams. [place] Sleepiness Scale is 14. She reports concern [...] MG Oral Tablet Vitals Vital Signs Recorded: 66Icg4090 01:33PMHeart Cggn35Xfduulxk142, RBQMlfsrxgsk78, ABJNvanmy057 lb 1 ozBMI Pgyfkorfgy09.59BSA Calculated2.27 Physical ExamConstitutional: General appearance: no acute [...] 30 Days ; #:69 Tablet; Refill: 6;For: Parkinson 's disease; KISHOR = N; Verified Transmission to [facility] 79[facility]; Last Updated By: [employer]; 10/26/2017 2:12:16 PM Provider Josefina is a right-handed 77 year-old woman with rightsided resting tremor since 2013 consistent with mild [...] and treatment options. 25 minutes was spent dpmo-mx-xixr in the visit. Patient Discussion/SummaryI am recommending starting Sinemet 0.5 tablets three times daily for 1 week with meals and then increase the first dose to 1 tablet. Follow up in 3 months. Signatures Electronically signed by : Tyree Perez MD; Nov 01 2017 8:36AM EST (Author)Normal Touchworks Vital Signs Date TimeVital SignValuePerforming OgrxqsmngSzehplcj81-49-7630 22:22-0500Body itelkdqbcac96.6 [degF]Honey Vaslloydk DO Work Phone: [phone]12-22-2024 22:22-0500 Diastolic blood hcdygwmn38 mm[Hg]Honey Vaslloydk DO Work Phone: [phone]12-22-2024 22:22-0500 Heart rate88 /minRobert Vaschak DO Work Phone: [phone]12-22-2024 22:22-0500 Respiratory rate16 /minRobert Vaschak DO Work Phone: [phone]12-22-2024 22:22-0500 SaO2% (BldA) [Mass fraction]98 %Honey Gilmank DO Work Phone: [phone] [place], [place] 7401012-22-2024 22:22-0500 Systolic blood hrebwpkk476 mm[Hg]Honey Gilmank DO Work Phone: [phone] [place], [place] 7401012-22-2024 18:42-0500 Body tzgxoo956.64 cmRobert Vaschak DO Work Phone: [phone] [place], [place] 7401012-22-2024 18:42-0500 Body yhkcof550.9 kgRobert Vaschak DO Work Phone: [phone] [place], [place] 7401012-15-2024 21:05-0500 Diastolic blood vtzrweds50 mm[Hg]Honey Vaschak DO Work Phone: [phone] [place], [place] 7401012-15-2024 21:05-0500 Heart rate82 /minRobert Vaschak DO Work Phone: [facility]12-15-2024 21:05-0500 Respiratory rate16 /minRobert Vaschak DO Work Phone: [phone] [place], [place] 7401012-15-2024 21:05-0500 SaO2% (BldA) [Mass fraction]100 %Honey Rabago DO Work Phone: [phone] [place], [place] 7401012-15-2024 21:05-0500 Systolic blood ovsuxemh047 mm[Hg]Honey Rabago DO Work Phone: [phone]12-15-2024 19:16-0500 Body aqwbgg502.64 cmRobert Hima DO Work Phone: [phone] [place], [place] 7401012-15-2024 19:16-0500 Body fjqbis900 kgRobchris Rabago DO Work Phone: [phone] [place], [place] 7401012-15-2024 19:15-0500 Body ucvukproizd52.3 [degF]Honey Rabago DO Work Phone: [phone]12-10-2024 13:08-0500 Body mass index (BMI) [Ratio]36.64 kg/y9Lwjmclg Anthony [employer] Work Phone: [facility] CenterJlkuvjuuyf79-81-5884 13:08-0500Body okfybo434.97 kgMac Anthony [employer] Work Phone: [facility] CenterWjsjbgcrlu78-79-3632 13:08-0500Diastolic blood bsmgnevu43 mm[Hg]Mac Anthony [employer] Work Phone: [facility] CenterFsmjatbdvf38-15-1216 13:08-0500Heart rate94 /min Yuerong Anthony [employer] Work Phone: [facility] CenterDgtmpmwnxn83-75-3446 13:08-5661MpP4% (BldA) [Mass fraction]99 %Yuerong Anthony [employer] Work Phone: [facility] CenterYslvpqrjvu17-31-8395 13:08-0500Systolic blood vfhigoad059 mm[Hg]Yuerong Anthony [employer] Work Phone: [facility] CenterJhnjtrhped88-55-0704 13:39-0400Body cheviw062.6 cmAngramirez Stantonr COMMERCIAL [employer] INSTRUCTOR Work Phone: [facility] CenterZhfvgysewg10-23-5879 13:39-0400Body mass index (BMI) [Ratio]38.58 kg/d5XtuyulLis Paez [employer]CTOR Work Phone: [place] [phone] 13:39-0400Body .41 kgLis Paez [employer]ERCIAL [employer] IN[employer]CTOR Work Phone: [facility] CenterFthhnnraxr11-79-5900 13:39-0400Diastolic blood qjrbikua01 mm[Hg]Lis Paez [employer] Work Phone: [place] [address]Dkgbetplia86-45-3833 13:39-0400Heart rate95 /min Lis Paez [employer] Work Phone: [place] [phone] 13:39-6910DmA2% (BldA) [Mass fraction]98 %Lis Paez [employer] Work Phone: [place] [address]Myzzogsemv39-05-7180 13:39-0400Systolic blood mm[Hg]Lis Paez [employer] Work Phone: [place] [address]Jkhtfheexd87-00-2697 08:46-0400Diastolic blood alywukva41 mm[Hg]Yuerong Anthony [employer] Work Phone: [place] [address]Rlfxadtyry15-91-3062 08:46-0400Systolic blood mm[Hg]Yuerong Anthony [employer] Work Phone: [place] [address]Vhmyoskrlj16-51-0122 13:36-0400Body cprszy340.6 cmYuereduardo Anthony [employer] IN[employer] Work Phone: [place] [address]Wycwzfsuap82-35-5371 13:36-0400Body mass index (BMI) [Ratio]38.74 kg/w7Djeufjg Anthony [employer] Work Phone: [place] [address]Vskgetbwpe78-06-4333 13:36-0400Body .86 kgYuerong Anthony [employer]ER[employer] ART INSTRUCTOR Work Phone: [place] [address]Gdskjxopjk40-03-6920 13:36-0400Diastolic blood ghjohnih37 mm[Hg]Yuerong Anthony [employer] Work Phone: [facility] CenterBykruakgfm57-04-5149 13:36-0400Heart rate94 /min Mac Villasenor [employer] Work Phone: [facility] CenterEifraekiqy49-24-4836 13:36-4367NkA5% (BldA) [Mass fraction]99 %Mac Villasenor [employer] IN[employer] Work Phone: [facility] CenterGyarbdtvmz84-85-4622 13:36-0400Systolic blood pbkggutu745 mm[Hg]Mac Villasenor [employer] IN[employer] Work Phone: [facility] CenterAdyulompoz32-37-8298 13:24-0400Body oqbuel986.6 Adonay Perez STAGE MANAGER.DYNAMICS AX DEVELOPER Work Phone: [phone]08-13-2024 13:24-0400Body mass index (BMI) [Ratio]39.87 kg/r1XpmffGloria Perez APRN.DYNAMICS AX DEVELOPER Work Phone: [phone]08-13-2024 13:24-0400Body oknctx371.04 kgGloria Perez APRN.DYNAMICS AX DEVELOPER Work Phone: [phone] HospitalComment on above:Per pt. Did not get -[phone] 13:24-0400Diastolic blood vlydoyqt73 mm[Hg]Gloria Perez APRN.DYNAMICS AX DEVELOPER Work Phone: [facility]08-13-2024 13:24-0400Heart rate74 /min Gloria Perez APRN.DYNAMICS AX DEVELOPER Work Phone: [facility]08-13-2024 13:24-7313EbU0% (BldA) [Mass fraction]99 %Gloria Perez STAGE MANAGER.DYNAMICS AX DEVELOPER Work Phone: [facility]08-13-2024 13:24-0400Systolic blood vhudggej301 mm[Hg]Gloria Perez APRN.DYNAMICS AX DEVELOPER Work Phone: [facility]04-11-2024 14:53-0400Body jxleby016.6 Adonay Perez APRN.DYNAMICS AX DEVELOPER Work Phone: [facility]04-11-2024 14:53-0400Body aaanax074.6 kgGloria Matoster STAGE MANAGER.DYNAMICS AX DEVELOPER Work Phone: [facility]04-11-2024 14:53-0672UwV6% (BldA) [Mass fraction]99 %Gloria Perez STAGE MANAGER.DYNAMICS AX DEVELOPER Work Phone: [facility]11-09-2023 14:52-0500Body xrjfvo398.6 Adonay Perez STAGE MANAGER.DYNAMICS AX DEVELOPER Work Phone: [phone]11-09-2023 14:52-5594EoT3% (BldA) [Mass fraction]98 %Gloria Perez STAGE MANAGER.DYNAMICS AX DEVELOPER Work Phone: [facility]04-27-2023 14:54-0400Body hsyoxw311.6 Adonay Perez STAGE MANAGER.DYNAMICS AX DEVELOPER Work Phone: [facility]04-27-2023 14:54-0400Body gjuegz33.14 kgGloria Matoster STAGE MANAGER.DYNAMICS AX DEVELOPER Work Phone: [facility]04-27-2023 14:54-1212SvZ6% (BldA) [Mass fraction]98 %Gloria Perez STAGE MANAGER.[facility] Work Phone: [facility]03-09-2023 09:30-0500Diastolic blood hxemlwua16 mm[Hg]DO Honey Rabago Work Phone: [facility]03-09-2023 09:30-0500 Heart rate89 /minDO Honey Rabago Work Phone: [facility]03-09-2023 09:30-0500 Systolic blood oduqgqdn711 mm[Hg]DO Hoeny Mukulk Work Phone: [facility]09-14-2022 16:00-0400 Body .4 [degF]DO Honey Mukulk Work Phone: [facility]09-14-2022 16:00-0400 Diastolic blood zlbfsadi04 mm[Hg]DO Honey Mukulk Work Phone: [facility]09-14-2022 16:00-0400 Heart rate98 /Alex Rabago Work Phone: 6(001)423-[address] [place], [place] 7401009-14-2022 16:00-0400 Respiratory rate16 /Alex Gilmank Work Phone: 4(167)198-[address] [place], [place] 7401009-14-2022 16:00-0400 SaO2% (BldA) [Mass fraction]98 %DO Honey Hima Work Phone: 1(161)[address]09-14-2022 16:00-0400 Systolic blood yrtgfmkt93 mm[Hg]DO Honey Mukulk Work Phone: 1(626)[address]09-13-2022 12:10-0400 Body egnkdi983.64 cmDO Honey Rabago Work Phone: 6(371)[address]09-11-2022 06:00-0400 Body csndsi33.8 kgDO Honey Rabago Work Phone: 1(783)[address]09-02-2022 21:44-0400 Body fvdfoxwjvhj82.1 [degF]DO Honey Rabago Work Phone: 9(745)[address]09-02-2022 21:44-0400 Diastolic blood zmkfdeuo12 mm[Hg]DO Honey Rabago Work Phone: 5(978)456-[address] [place], [place] 7401009-02-2022 21:44-0400 Heart rate92 /Alex Rabago Work Phone: 7(154)178-[address] [place], [place] 7401009-02-2022 21:44-0400 Respiratory rate18 /Alex Gilmank Work Phone: 8(961)424-[address] [place], [place] 7401009-02-2022 21:44-0400 SaO2% (BldA) [Mass fraction]98 %DO Honey Mukulk Work Phone: 9(496)033-[address] [place], [place] 7401009-02-2022 21:44-0400 Systolic blood ytoyotoy161 mm[Hg]DO Honey Vaschak Work Phone: [facility]09-01-2022 16:00-0400 Body kguecciqrxz12.6 [degF]DO Honey Vaschak Work Phone: [facility]09-01-2022 16:00-0400 Diastolic blood pthejcdi23 mm[Hg]DO Honey Danilochak Work Phone: [facility]09-01-2022 16:00-0400 Heart rate96 /minDO Honey Rabago Work Phone: [address] [place], [place] 4736209-01-2022 16:00-0400 Respiratory rate16 /minDO Honey Mukulk Work Phone: 1(886)368-[address] [place], [place] 7401009-01-2022 16:00-0400 SaO2% (BldA) [Mass fraction]98 %DO Honey Hima Work Phone: [address] [place], [place] 4736209-01-2022 16:00-0400 Systolic blood ugfrwzzc20 mm[Hg]DO Honey Mukulk Work Phone: [address] [place], [place] 4736209-01-2022 10:30-0400 Body occxkg861.64 cmDO Honey Hima Work Phone: [address] [place], [place] 4736208-31-2022 15:00-0400 Body mxkucd82.98 kgDO Honey Rabago Work Phone: [facility]08-31-2022 08:00-0400 Body rqcdqnryqar32.9 [degF]DO Honey Danilochak Work Phone: [facility]08-31-2022 08:00-0400 Diastolic blood ccfsehvs41 mm[Hg]DO Honey Danilochak Work Phone: [facility]08-31-2022 08:00-0400 Heart rate87 /minDO Honey Gilmank Work Phone: [facility]08-31-2022 08:00-0400 SaO2% (BldA) [Mass fraction]95 %DO Honey Rabago Work Phone: 1(968)[address]08-31-2022 08:00-0400 Systolic blood ldycrgyr366 mm[Hg]DO Honey Mukulk Work Phone: 1(364)[address]08-31-2022 05:58-0400 Respiratory rate17 /minDO Honey Rabago Work Phone: 1(924)[address]08-31-2022 04:10-0400 Body .3 kgDO Honey Rabago Work Phone: 1(110)[address] [place], [place] 6878708-25-2022 16:33-0400 Body ewlxkb037.64 cmDO Honey Rabago Work Phone: 1(605)[address] [place], [place] 6878708-08-2022 23:25-0400 Diastolic blood ykdnuheu42 mm[Hg]DO Honey Rabago Work Phone: 1(558)[address]08-08-2022 23:25-0400 Heart rate83 /Alex Rabago Work Phone: 1(266)[address]08-08-2022 23:25-0400 Respiratory rate18 /Alex Rabago Work Phone: 1(820)[address]08-08-2022 23:25-0400 SaO2% (BldA) [Mass fraction]100 %DO Honey Hima Work Phone: 1(036)[address]08-08-2022 23:25-0400 Systolic blood tkzdpiwk715 mm[Hg]DO Honey Hima Work Phone: 1(519)[address]08-08-2022 19:51-0400 Body umzbonbtvvx34.6 [degF]DO Honey Mukulk Work Phone: 1(551)[address]08-08-2022 19:48-0400 Body hxvudf745.64 cmDO Honey Hima Work Phone: 1(231)[address]08-08-2022 19:48-0400 Body ugwmwj84.6 kgDO Honey Rabago Work Phone: 1(536)874-[address] [place], [place] 7401007-21-2022 11:58-0400 Body ytzris790.6 Adonay Perez STAGE MANAGER.DYNAMICS AX DEVELOPER Work Phone: [facility]07-21-2022 11:58-0400Body .06 kgGloria Perez STAGE MANAGER.DYNAMICS AX DEVELOPER Work Phone: [facility]07-21-2022 11:58-4183ZkY9% (BldA) [Mass fraction]98 %Gloria Perez STAGE MANAGER.DYNAMICS AX DEVELOPER Work Phone: [facility]07-18-2022 02:06-0400Heart rate86 /min DO Honey Rabago Work Phone: 9(052)546-[address] [place], [place] 7401007-18-2022 00:01-0400 Body halnil648.64 cmDO Honey GilmanMediQuest Therapeutics Work Phone: 3(128)851-[address] [place], [place] 7401007-18-2022 00:01-0400 Body mass index (BMI) [Ratio]35.5 kg/m2DO Honey GilmanMediQuest Therapeutics Work Phone: 3(524)107-[address] [place], [place] 7401007-18-2022 00:01-0400 Body lzyzsi16.79 kgDO Honey GilmanMediQuest Therapeutics Work Phone: [address] [place], [place] 4736207-17-2022 23:57-0400 Body kzhyplafrgs86.6 [degF]DO Honey Rabago Work Phone: [address] [place], [place] 4736207-17-2022 23:57-0400 Diastolic blood bwljekkf78 mm[Hg]DO Honey Rabago Work Phone: [address] [place], [place] 4736207-17-2022 23:57-0400 Respiratory rate16 /minDO Honey GilmanMediQuest Therapeutics Work Phone: [facility]07-17-2022 23:57-0400 SaO2% (BldA) [Mass fraction]97 %DO Honey Rabago Work Phone: [facility]07-17-2022 23:57-0400 Systolic blood qnzeocjd226 mm[Hg]DO Honey Rabago Work Phone: [address] [place], [place] 4736205-20-2021 16:20-0400 Body ipnoul575.64 cmRobert Hima Work Phone: [address] [place], [place] 0203205-20-2021 16:20-0400 Body mass index (BMI) [Ratio]41.6 kg/n0Oynjud Hima Work Phone: 1(428)772-[address] [place], [place] 4888105-20-2021 16:20-0400 Body sipqwx186.02 kgRobchris Rabago Work Phone: 8(719)247-[address] [place], [place] 4888105-20-2021 16:19-0400 Body jkyhpbivduu72.1 [degF]Honey Rabago Work Phone: 0(074)320-[address] [place], [place] 4888105-20-2021 16:19-0400 Diastolic blood mm[Hg]Honey Rabago Work Phone: [address] [place], [place] 0203205-20-2021 16:19-0400 Heart rate90 /minRobchris Rabago Work Phone: [facility]05-20-2021 16:19-0400 Respiratory rate18 /minRobert Hima Work Phone: [address] [place], [place] 0203205-20-2021 16:19-0400 SaO2% (BldA) [Mass fraction]98 %Honey Rabago Work Phone: [facility]05-20-2021 16:19-0400 Systolic blood mm[Hg]Honey Rabago Work Phone: [place] [address] Ctr Encounters Encounter DateEncounter TypeCare ProviderFacilityStart: 10-06-2024 End: 66-31-6010Ejlbaxxoz Result EncounterVandana Orourke MD Work Phone: [facility] External Department UnsolicitedStart: 10-06-2024 End: 34-27-4340Wuucfubxt Result EncounterVandana Orourke MD Work Phone: [facility] External Department UnsolicitedStart: 09-25-2024 End: 58-47-6855Xybwasamando Aponte MD Work Phone: [facility] DERMStart: 09-25-2024 End: 52-01-3512Vbhwuyamando Aponte MD Work Phone: [facility] SWS DERMStart: 09-25-2024 End: 94-02-7299uenoypjhtdPTQDB A PETITTINot AvailableStart: 09-25-2024 End: 49-20-9254Cgqdnr outpatient visit 25 minutesEmwade Aponte MD Work Phone: [facility]oms SWS DERMComment on above:Other seborrheic dermatitis (Primary Dx); Lentigines; Seborrheic keratosis; Capillary angiomaStart: 05-17-2024 End: 05-54-0647Eckgel flowsTavo Hutton DPM Work Phone: [facility] SWS PODIATRYStart: 05-17-2024 End: 27-28-1781Vmkeol Kavya Hutton DPM Work Phone: [facility] PODIATRYStart: 05-17-2024 End: 39-08-0002ejatxxwasiIVKSPSDZE H SMITHNot AvailableStart: 05-17-2024 End: 50-49-3133Fspoah outpatient visit 10 minutesCavin Hutton DPM Work Phone: noms SWS PODIATRYComment on above: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); Neuropathy; Hammer toes of both feet; Onychomycosis; Pain in both feet; Tinea pedis of both feetStart: 05-03-2024 End: 52-82-9654Eodtjrywa Result EncounterGeneric External Data ProviderNOMS External Department UnsolicitedStart: 05-03-2024 End: 79-01-1219Dxfugbciq Result EncounterGeneric External Data ProviderNOMS External Department UnsolicitedStart: 05-02-2024 End: 83-48-8910Ziuqulqeu Result EncounterGeneric External Data ProviderNOMS External Department UnsolicitedStart: 05-02-2024 End: 23-12-2145Jtrnlxaem Result EncounterGeneric External Data ProviderNOMS External Department UnsolicitedStart: 03-16-2024 End: 26-72-4570dzlxlkrdvaDlcxkb Vaschak DO Work Phone: [facility] Work Phone: Start: 03-16-2024 End: 12-92-3305Nbddilqb ReferredRobert Vaschak DO Work Phone: [facility]-LAB Path Spec [facility] HospStart: 03-06-2024 End: 28-38-9339zyjdxjclalCkeij Walter APRN.DYNAMICS AX DEVELOPER Work Phone: NeurologyComment on above:Depression with anxiety (Primary Dx); Parkinson's disease without dyskinesia, with fluctuating manifestations (HCC) Start: 03-06-2024 End: 19-58-1449Psviwaynrdqn consultation with Henri Perez APRN.DYNAMICS AX DEVELOPER Work Phone: NeurologyStart: 03-05-2024 End: 38-85-0904Fjbynnyes encounterCokellen Wise OT Work Phone: NO[facility] CI PTComment on above:re: OT Eval set-upStart: 03-04-2024 End: 77-97-8318Oieqaiorp department patient visitRobert Vaschak DO Work Phone: [facility]-Emergency Room Work Phone: Start: 02-26-2024 End: 60-33-3572Pjkyhhaby department patient visitRobert Vaschak DO Work Phone: [facility]-Emergency Room Work Phone: Start: 02-24-2024 End: 75-16-0038acjqvqwwwkVTKYDHF K SHAFFERFacility:[place] [facility]Start: 02-24-2024 End: 69-94-5985Jugnpdvi evaluation and management serviceSraissa Torres APRN.DYNAMICS AX DEVELOPER Work Phone: NeurologyComment on above:NO SHOW (Primary Dx)Start: 02-22-2024 End: 55-86-5069Qcmoobqax encounterCourtalvin Wise OT Work Phone: noms CI PTComment on above:OT Initial EvalStart: 02-21-2024 End: 60-43-2335W-mail encounter from caregiverSraissa Torres APRN.DYNAMICS AX DEVELOPER Work Phone: NeurologyStart: 02-21-2024 End: 40-85-6446Xpbner OnlyMac Villasenor COMMERCIAL ART INSTRUCTOR Work Phone: noms External Department UnsolicitedStart: 02-21-2024 End: 41-04-6479Zaeoew outpatient visit 25 minutesYgi Villasenor COMMERCIAL ART INSTRUCTOR Work Phone: noms SWS IMComment on above:Morbid obesity (CMS/HCC) (Primary Dx); Type 2 diabetes mellitus with other specified complication, without long-term current use of insulin (CMS/HCC); Parkinson's disease without dyskinesia or fluctuating manifestations (CMS/HCC); Frequent falls; Acquired hypothyroidism (CMS/HCC); Type 2 diabetes mellitus with hyperglycemia (CMS/HCC); Immunodeficiency due to conditions classified elsewhere (CMS/HCC)Start: 02-21-2024 End: 70-44-4725prdnubohrnAvtksuuJaxon Torres APRN.DYNAMICS AX DEVELOPER Work Phone: NeurologyComment on above:How to Prepare for Your Upcoming Virtual VisitStart: 02-16-2024 End: 23-47-7646Fgljuf Kavya Hutton DPM Work Phone: [facility] SWS PODIATRYStart: 02-16-2024 End: 79-68-8607Ikvukq Kavya Hutton DPM Work Phone: [facility] SWS PODIATRYStart: 02-16-2024 End: 74-69-5507Dtavbsi encounter procedureUrbano Hutton DPM Work Phone: noms [facility] PODIATRYComment on above:Onychomycosis (Primary Dx); Pain in both feet; Type II diabetes mellitus with neurological manifestations (CMS/HCC); NeuropathyStart: 02-16-2024 End: 72-40-1477fakvpymbiaUKEYMFMUL H SMITHNot AvailableStart: 12-05-2023 End: 96-38-8147Hbsfyf flowsJoni Paez COMMERCIAL ART INSTRUCTOR Work Phone: noms [facility] ROUTEStart: 12-05-2023 End: 74-76-1770Buxjjf Gen Paez COMMERCIAL ART INSTRUCTOR Work Phone: noms [facility] ROUTEStart: 12-05-2023 End: 78-80-2222ctxqwxkoneQVUUOV GILLMORNot AvailableStart: 12-05-2023 End: 79-27-0547Htdien outpatient visit 25 minutesLis Paez COMMERCIAL ART INSTRUCTOR Work Phone: noms [facility] ROUTEComment on above:GERMANIA (obstructive sleep apnea) (Primary Dx); Inadequate sleep hygiene; Hypersomnia; Snoring; Anxiety; Depression, unspecified depression type (CMS/HCC); Memory lossStart: 11-23-2023 End: 96-40-9264Aofbtl outpatient visit 25 minutesMac Villasenor COMMERCIAL ART INSTRUCTOR Work Phone: noms [facility] IMComment on above:Vaginal yeast infection (Primary Dx); Atrophic vaginitis; Diabetic peripheral neuropathy associated with type 2 diabetes mellitus (CMS/HCC)Start: 11-23-2023 End: 73-23-9363afqcynjytsKLSLKCS BAYERNot AvailableStart: 11-17-2023 End: 94-83-9595Hykmxn outpatient visit 15 Paulina Hutton DPM Work Phone: noms [facility] PODIATRYComment on above:Onychomycosis (Primary Dx); Pain in both feet; Type II diabetes mellitus with neurological manifestations (CMS/HCC); Neuropathy; Hammer toes of both feetStart: 11-17-2023 End: 54-60-0374zfzbouroyfNVUMRUHRE Zainab BRENNENNot AvailableStart: 11-17-2023 End: 58-19-2312Gigdgi flowsjuanUrbnao Zainab Brennen DPM Work Phone: noms [facility] PODIATRYStart: 11-17-2023 End: 67-23-2726Ewqgob flowsjuanUrbano Zainab Brennen DPM Work Phone: noms [facility] PODIATRYStart: 11-16-2023 End: 77-12-0487IitpxiNlqqyrb Dorian MORRISSEY [facility] IMComment on above:Vaginal yeast infectionStart: 11-15-2023 End: 11-24-4686Uqpvsi outpatient visit 25 minutesMac Villasenor COMMERCIAL ART INSTRUCTOR Work Phone: noms [facility] IMComment on above:Parkinson's disease without dyskinesia or fluctuating manifestations (CMS/HCC) (Primary Dx); Type 2 diabetes mellitus with other specified complication, unspecified whether 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 (CMS/HCC); GERMANIA (obstructive sleep apnea); Pulmonary fibrosis (CMS/HCC); Vaginal yeast infection; Vitamin D deficiency; Vitamin B12 deficiency; Need for vaccination with 20-polyvalent pneumococcal conjugate vaccineStart: 11-15-2023 End: 44-71-7277mgtjqnivfvUKCMAGN BAYERNot AvailableStart: 10-30-2023 End: 70-73-5503Ucowugikh Result EncounterGeneric External Data ProviderNOMS External Department UnsolicitedStart: 10-30-2023 End: 45-59-0463Jydfkzala Result EncounterGeneric External Data ProviderNOMS External Department UnsolicitedStart: 10-25-2023 End: 42-61-6406slzmchitrdHPPXR WALTERFacility:[facility] Campustart: 10-25-2023 End: 90-16-2962Wotgqjy encounter Joshua Perez APRN.CNP Work Phone: NeurologyComment on above:Injury of head, initial encounter (Primary Dx); Parkinson's disease without dyskinesia, with fluctuating manifestations (HCC); Depression with anxietyStart: 10-20-2023 End: 96-11-7505Udxzoztxh Result EncounterGeneric External Data ProviderNOMS External Department UnsolicitedStart: 10-20-2023 End: 33-12-2172Rnzjnnxuy Result EncounterGeneric External Data ProviderNOMS External Department UnsolicitedStart: 10-06-2023 End: 81-90-9249byzwoamdzoISIVT A PETITTINot AvailableStart: 06-23-2023 End: 15-69-4880fxigomznfqKQSWE WALTERFacility:[facility] Campustart: 06-23-2023 End: 44-09-0225Ayigkxz encounter Joshua Perez APRN.CNP Work Phone: NeurologyComment on above:Depression with anxiety (Primary Dx); Parkinson's disease without dyskinesia, with fluctuating manifestations (HCC); SialorrheaStart: 04-27-2023 End: 81-02-8850Zpoxouuyf Result EncounterGeneric External Data ProviderNOMS External Department UnsolicitedStart: 04-27-2023 End: 86-60-1677Vfgnckpyl Result EncounterGeneric External Data ProviderNOMS External Department UnsolicitedStart: 04-13-2023 End: 73-64-4469Qzfhyzwku Result EncounterGeneric External Data ProviderNOMS External Department UnsolicitedStart: 04-13-2023 End: 92-63-7402Olmdtmjmx Result EncounterGeneric External Data ProviderNOMS External Department UnsolicitedStart: 55-81-1316Lqhhjxcxg William Perez APRN.CNP Work Phone: NeurologyComment on above:Medication ProblemStart: 01-20-2023 End: 24-93-2030Odzufar encounter Joshua Perez APRN.CNP Work Phone: NeurologyComment on above:Parkinson's disease without dyskinesia, with fluctuating manifestations (Primary Dx); Depression with anxietyStart: 07-14-2022 End: 36-75-5627quqpkbbhyaNJSteve Solanocility:O7Tvivk: 07-12-2022 End: 41-58-7396kudiafuairRZSteven Solanocility:P0Oqtzx: 07-08-2022 End: 39-36-1040Khtladq encounter Joshua Perez APRN.CNP Work Phone: NeurologyComment on above:Parkinson's disease (HCC) (Primary Dx); Depression with anxietyStart: 06-01-2022 End: 33-05-9314dztkiotytwCQ ROBERT VASCHAKFacility:O8Djyik: 00-62-2287jjonqnxwqy Gloria Perez APRN.DYNAMICS AX DEVELOPER Work Phone: NeurologyComment on above:UPDATE: ALTON BARKER : 5-42Start: 05-20-2022 End: 92-59-9964caxkknmllqOE Honey Rabago Work Phone: [facility] Work Phone: Start: 05-20-2022 End: 63-08-0803Vomzjiqpfh RecurringDO Honey Rabago Work Phone: [facility]-Infusion Therapy - O/P Work Phone: Start: 39-99-0617ElkhiqZxhib Walter APRN.DYNAMICS AX DEVELOPER Work Phone: NeurologyComment on above:Refill RequestStart: 83-64-5902Qtebivecy encounterGloria Perez APRN.CNP Work Phone: NeurologyComment on above:Patient UpdateStart: 02-02-2022 End: 74-98-5624zcfnhxrtxnMESteve Solanocility:G2Mqhpv: 01-08-2022 End: 96-41-8497jzbcwiflyoKcjx [employer] Other [employer] Other Start: 13-07-7724Jdpypijez encounterDatj [facility]Mem[facility] Care ClinicStart: 12-30-2021 End: 40-01-5042Ysriehv encounter procedureDO Honey Rabago Work Phone: [place] [address] Ctr-Lab [facility] HealthStart: 12-29-2021 End: 00-84-1664hodskxckxmRE HONEY RABAGOFacility:D5Feyqj: 12-21-2021 End: 49-24-2992bonrekgcbaWR HONEY RABAGOFacility:G9Ccbyy: 12-15-2021(Repeat [facility] ClinicStart: 12-15-2021 End: 06-94-6169xkbtavhvtxIleg Fitt Other [employer] Other Start: 12-14-2021 End: 06-87-1300tykjedkhpeQC HONEY GILMANCariFacility:V6Onjst: 12-01-2021(Repeat [facility] ClinicStart: 12-01[facility]2021 End: 42-56-6947xqwihfjfayOwva Fitt Other [employer] Other Start: 11-30-2021 End: 30-92-6217sssqucwbbtQV HONEY RABAGOBenedictcility:N4Qteoa: 11-11-2021 End: 56-28-3183Uxelzswhqd and management of inpatientDO Honey Rabago Work Phone: [facility] [place] RehabStart: 11-05-2021 End: 03-62-9263vybfntjccdDuev Braun Other [facility] [employer] Other start: 86-60-9737Uewwtcm encounter procedureDale [facility]ma HealthStart: 47-88-3382Emhopxeie encounterGloria Perez APRN.CNP Work Phone: NeurologyComment on above:Appointment; Patient Update (Called to schedule follow up. Patient in hospital.)Start: 11-04-2021 End: 97-07-5308Cnhmwnxeto and management of inpatientDO Honey Rabago Work Phone: [facility] [place] RehabStart: 23-73-8322qkjuccssizIyfyb Walter APRN.DYNAMICS AX DEVELOPER Work Phone: NeurologyComment on above:ALTON BARKER UPDATE MESSAGE #3Start: 81-95-7926Seyuvsqxnn RecurringDO Honey Rabago Work Phone: [facility] Coord[facility] CareStart: 10-22-2021([facility] R A/c) [facility] Repeat A/CDawn [facility] ClinicStart: 10-22-2021 End: 75-73-3774pcgzouzghvJhhg Fitt Other [employer] Other Start: 10-19-2021 End: 13-79-7527Fmtqsnwqk department patient visitDO Honey Rabago Work Phone: [facility]-Emergency RoomStart: 10-01-2021 End: 85-75-7531Vftcrbk encounter Joshua Perez APRN.DYNAMICS AX DEVELOPER Work Phone: NeurologyComment on above:Recurrent episodes of unresponsiveness (Primary Dx); Parkinson's disease (HCC); Depression with anxiety; Fatigue, unspecified type; Excessive daytime sleepinessStart: 09-29-2021([facility] R A/c) [facility] Repeat A/CDawn [facility] Care ClinicStart: 09-29-2021 End: 19-57-5559rkqwbwuexzHopk Fitt Other [employer] Other Start: 09-27-2021 End: 32-13-9807Dicilfzkn department patient visitDO Honey Rabago Work Phone: [facility]-Emergency RoomStart: 09-23-2021 End: 21-41-2866nzikzmvpmvUhhm Fitt Other [employer] Other Start: 00-69-7230Raisuxzfj encounterDawn [facility] ClinicStart: 08-26-2021([facility] R [facility]) [facility] Repeat A/CDawn [facility] ClinicStart: 08-26-2021 End: 11-35-1501voubbihvobPxcr Fitt Other [employer] Other Start: 08-05-2021([facility] R A/c) [facility] Repeat A/CDawn [facility] ClinicStart: 08-05-2021 End: 03-25-7577dgwfyqtebyYqov Fitt Other [employer] Other Start: 07-20-2021([facility] R A/c) [facility] Repeat A/CDawn [facility] ClinicStart: 07-20-2021 End: 13-02-7074cwufyzxpacYidm Fitt Other [employer] Other Start: 06-10-2021([facility] R A/c) [facility] Repeat A/CDawn [facility] ClinicStart: 06-10-2021 End: 59-21-2040amkhznzpgbDeoi Fitt Other [employer] Other Start: 05-26-2021([facility] R A/c) [facility] Repeat A/CDawn [facility] ClinicStart: 05-26-2021 End: 05-47-0844okycotbcgyIkfu Fitt Other [employer] Other Start: 05-19-2021 End: 15-30-8545uqzpgjrrdzBpfb Fitt Other [employer] Other Start: 28-79-3594Qsbljbsur encounterDawn [facility] ClinicStart: 04-21-[facility]21 End: 07-36-0824qblaegiordNobr Fitt Other [employer] Other Start: 00-02-9968Zgvlzvqit encounterDawn [facility] ClinicStart: 04-15-2021 End: 79-69-1437utnqjwfpyjDrvo Fitt Other [employer] Other Start: 57-11-3022Xaxcnszdi encounterDawn [facility] ClinicStart: 03-25-2021([facility] R A/c) [facility] Repeat A/CDawn [facility] ClinicStart: 03-25-2021 End: 47-06-5238xayvyqgvfdNbzz Fitt Other [employer] Other Start: 02-25-2021([facility] R A/c) [facility] Repeat A/CDawn [facility] ClinicStart: 02-25-2021 End: 82-89-3025ujmwaefjnzQmow Fitt Other [employer] Other Start: 01-28-2021([facility] R A/c) [facility] Repeat A/CDawn [facility]itt [facility] ClinicStart: 01-28-2021 End: 07-01-9552xruuhxnqivIhho Fitt Other [employer] Other Start: 01-21-2021 End: 12-14-9849xotuzztflfUrlk Fitt Other [employer] Other Start: 19-20-3352Ryxsxstpu encounterDawn [facility] ClinicStart: 01-07-2021 End: 32-33-6271qjudufsebkBsax Fitt Other [facility] [employer] Other Start: 90-59-4377Bdjvyizew encounterDawn Juan MiguelSt. [facility] ClinicStart: 12-10-2020([facility] R A/c) [facility] Repeat A/CDawn Fitt [facility] Coord[facility] Care ClinicStart: 07-31-2020 End: 79-26-4088Acbatuiqt department patient visitRobert Vaschak Work Phone: [phone]-Qgddkfwwb RoomStart: 63-53-6979Jbyjibatbt Recurring Honey Mukulk Work Phone: [phone]-FcdbneAdventHealth Kissimmee Procedures DateProcedureProcedure DetailPerforming ClinicianStart: 61-74-8760OIL PROTIME/Mayte Orourke MD Work Phone: Start: 15-76-0684NF ChestGeneric External Data ProviderStart: 61-58-4343XC PULMONARY FUNCTION TESTGeneric External Data ProviderStart: 90-14-4500SJ cervical spine without contrastRobert Vaschak DO Work Phone: Start: 60-55-3645PS of head without contrastRobert Vaschak DO Work Phone: Start: 15-17-0886EF of lumbar spine without contrast Honey Vaslloydk DO Work Phone: Start: 57-60-3433Izhqn cultureRobert Vaschak DO Work Phone: Start: 04-08-5444VB of lumbar spine without contrast Honey Mukulk DO Work Phone: Start: 84-57-8515Qwntqjma blood count with white cell differential, automatedYuerong Anthony COMMERCIAL ART INSTRUCTOR Work Phone: Start: 02-21-2024 End: 96-39-4311Ggcigihakqdjs metabolic panelYuerong Anthony COMMERCIAL ART INSTRUCTOR Work Phone: Start: 04-59-6279Bxcpy panelYuerong Anthony COMMERCIAL ART INSTRUCTOR Work Phone: Start: 59-11-6349DJRBKIYQ STATUS REPORTYuerong Anthony COMMERCIAL ART INSTRUCTOR Work Phone: Start: 35-99-4298Shubodrenc glycosylated d1kEredil Junaid Rabago DO Work Phone: Start: 41-72-9151Psemwlax identified in Urine by CultureGeneric External Data ProviderStart: 51-90-6325FW ChestGeneric External Data ProviderStart: 34-90-8035WU PULMONARY FUNCTION TESTGeneric External Data ProviderStart: 07-60-7939IYI HEMOGLOBINGeneric External Data ProviderStart: 43-28-0732QE CHEST WO CONGeneric External Data ProviderStart: 23-57-5698CC lumbar spine wo conDO Honey Rabago Work Phone: Start: 46-68-3950QN of head without contrastDO Honey Rabago Work Phone: Start: 28-18-0991Aohcmcpz tomography of thoracic spine without contrastDO Honey Rabago Work Phone: Start: 15-80-6649AU cervical spine without contrastDO Honey Rabago Work Phone: Start: 16-93-2158HV of lumbar spine without contrastDO Honey Rabago Work Phone: Start: 44-66-0489OI of head without contrastDO Honey Rabago Work Phone: Start: 86-20-5070I-ray of lumbar spine, two or three viewsDO Honey Rabago Work Phone: Start: 02-60-2685Vxihd depression screening assessment Gloria Perez APRN.CNP Work Phone: Start: 23-53-6475Ubvly chest X-rayDO Honey Rabago Work Phone: Start: 49-36-1816Jbucxlecund of cervical spineRobchris Rabago Work Phone: [phone]-WvZ-2, Influenza & RSV (PCR)DO Honey Rabago Work Phone: Jareth Rabago Work Phone: Jareth Rabago Work Phone: Urine Eddi Rabago Work Phone: Plan of Treatment DateCare ActivityDetailAuthorStart: 33-35-0930Perocoum ScreeningDiabetes ScreeningVeterans Health Administrationtart: 58-00-1749Gmvtceyf ScreeningDiabetes Screening [facility]tart: 37-38-4743Plrbgzlr ScreeningDiabetes ScreeningVeterans Health Administrationtart: 09-25-2025 End: 05-02-8452Niyaybd encounter viafayjfa65/15/2026 1:05 PM EDT Office Visit [facility] [address] [place] [address] Sixto Aponte MD [address] [place] [address] NOMHasmukh Garcia DermatologyStart: 11-12-2024 Influenza vaccinationInfluenza Vaccine (#1)NOM HealthcareStart: 10-09-2024 End: 36-45-6477Fyrhjut encounter ljzqfdfyi98/29/2025 1:30 PM EDT Office Visit [facility] [address] [place] [address] Sixto Aponte MD [address] [place] [address] [facility] DERMStart: 08-23-2024 End: 68-47-7892Fqobyhi encounter fhrbpgmyh73/12/2025 1:00 PM EDT Procedure Visit [facility] PODI[facility] [address] [place] [address] Urbano Hutton DPM [address] [place] [address] [facility] PODIATRYStart: 05-17-2025Medicare Annual Wellness (AWV)Medicare Annual Wellness (AWV)NOM HealthcareStart: 05-29-2024 End: 21-72-4376Gdhszmg encounter aytjpbckt07/18/2025 1:00 PM EDT Office Visit [facility] IM [address] [place] [address] Honey Rabago DO [address] [place] [address] [facility] IMStart: 80-43-4621Ztyllfcoid A1c measurement Diabetes: Hemoglobin B4TBHMR HealthcareStart: 05-17-2024 End: 30-59-0882Rbpnfeb encounter /06/2025 1:00 PM EST Procedure Visit [facility]OD[facility] [address] [place] [address] Urbano Hutton DPM [address] [place] [address] [facility] PODIATRYStart: 04-25-2024 End: 03-32-6741Tjdwykl encounter vtopzocft05/12/2025 2:00 PM EST Office Visit [facility] [address] [place] [address] Lis Paez NP [address] [place] [address] [facility]S [facility] ROUTEStart: 04-11-2024 End: 01-42-4836Ixeotdx encounter tfnokkrnr43/29/2025 1:00 PM EST Office Visit Neurology [facility] [address] [place], [place] [phone] Nupur Main PA-C [address] [place] [address] r/s from 02/24/24 apptNeurology [facility] Hospitalomment on above:r/s from 02/24/24 apptStart: 03-16-2024 Urine cultureMartins Ferry Hospitaltart: 53-35-3888Emcoaswd identified in Urine by CultureUrine [facility] Start: 03-05-2024 End: 56-57-1521Nkstfjv encounter eixojbyrr40/23/2024 1:20 PM EST Office Visit [facility] [address] [facility] [address] [place] [address] Lis Paez NP [address] [facility] [address] [place], [place] [facility] ROUTEStart: 02-28-2024 End: 58-56-6735nwdgshmahe98/17/2024 1:30 PM EST Evaluation [facility] PT [address] [facility] [address] [place] [address] Betina Wise, OT [address] [facility] [address] [place] [address] NOMS CI PTStart: 02-28-2024 End: 51-88-0264Fiiqtyp encounter cqaduuuep24/17/2024 1:30 PM EST Office Visit Neurology [address] [address] Gloria Perez, STAGE MANAGER.DYNAMICS AX DEVELOPER [address] [place] [address] Parkinson's disease without dyskinesia, with fluctuating manifestations (HCC) [G20.A2]NeurologyComment on above:Parkinson's disease without dyskinesia, with fluctuating manifestations (HCC) [G20.A2]Start: 02-24-2024 End: 70-66-8344ktlenhruxm99/13/2024 3:00 PM EST [facility] Neurology [address] [place] [address] Audrey Torres, STAGE MANAGER.DYNAMICS AX DEVELOPER [address] [place] [address] *Patient agreeable to virtual visit per phone call (02/16/24)*NeurologyComment on above: *Patient agreeable to virtual visit per phone call (02/16/24)*Start: 02-21-2024 End: 59-34-1610Prwkatz encounter procedureNOMS SWS IMStart: 02-16-2024 End: 40-39-1823Hefxcix encounter procedureNOMS SWS PODIATRYComment on above: ArrivedStart: 02-14-2024 End: 928643-lwsmsdxhwixvcr D3 [Mass/volume] in Serum or PlasmaVitamin D 25 hydroxy Total Lab Routine Vitamin D deficiency Expected: 02/14/2024 (Approximate), Expires: 11/14/2024[facility] HealthcareComment on above:Expected: 02/14/2024 (Approximate), Expires: 11/14/2024Start: 02-14-2024 End: 43-28-7201AOK W Auto Differential panel - BloodCBC and differential Lab Routine Type 2 diabetes mellitus with other specified complication, unspecified whether 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 (CMS/HCC) Expected: 02/14/2024 (Approximate), Expires: 11/14/2024[facility] HealthcareComment on above:Expected: 02/14/2024 (Approximate), Expires: 11/14/2024Start: 02-14-2024 End: 00-00-0342Ksjdhmvzd (Vitamin B12) [Mass/volume] in Serum or PlasmaVitamin B12 Lab Routine Vitamin B12 deficiency Expected: 02/14/2024 (Approximate), Expires: 11/14/2024[facility] HealthcareComment on above:Expected: 02/14/2024 (Approximate), Expires: 11/14/2024Start: 02-14-2024 End: 78-65-3550Hqzbmymuhkbpv metabolic 2000 panel - Serum or PlasmaComprehensive metabolic panel Lab Routine Type 2 diabetes mellitus with other specified complication, unspecified whether 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 (CMS/HCC) Expected: 02/14/2024 (Approximate), Expires: 05/14/2024[facility] Healthcare Work Phone: Comment on above:Expected: 02/14/2024 (Approximate), Expires: 05/14/2024Start: 47-81-0756Fdhrhncdjf A1c measurementDiabetes: Hemoglobin T5CSGXR HealthcareStart: 02-14-2024 End: 82-40-5231Ikamruvdcz a1c with eagHemoglobin a1c with eag Lab Routine Type 2 diabetes mellitus with other specified complication, unspecified whether chcf insulin use ([facility]) Expected: 02/14/2024 (Approximate), Expires: 025NOCO HealthcareComment on above:Expected: 02/14/2024 (Approximate), Expires: 11/14/2024Start: 02-14-2024 End: 41-58-9256Ltppk 1996 panel - Serum or PlasmaLipid panel Lab Routine Type 2 diabetes mellitus with other specified complication, unspecified whether chcf insulin use ([facility]) Expected: 02/14/2024 (Approximate), Expires: 11/14/2024[facility] HealthcareComment on above:Expected: 02/14/2024 (Approximate), Expires: 11/14/2024Start: 65-33-4110Oyvrhklp screeningDiabetes: Retinopathy ScreeningNOCO HealthcareStart: 20-11-1515Dfeno screening for proteinDiabetes: Urine Protein ScreeningNOCO HealthcareStart: 12-05-2023 End: 96-86-3990Ivkotru encounter uxlhahknx68/23/2024 1:20 PM EDT Office Visit [facility] [address] [phone] Lis Paez NP [address] [place] [address] [facility]tart: 49-45-6167WLLCCXJY SCREENDIABETES SCREENBirmingham ClinicStart: 93-54-6112Ynhqrbmy ScreeningDiabetes ScreeningCletrinity health system ClinicStart: 11-17-2023 End: 03-39-7917Qtfusvs encounter procedureNOMS SWS PODIATRYComment on above: ArrivedStart: 11-15-2023 End: 35-97-3302Ejttoby encounter zuvifunqr79/03/2024 1:30 PM EDT Office Visit [facility] [address] [place] [address] Honey Rabago, [address] [place] [address] [facility] IMStart: 44-13-5144Ytvjd-19 Vaccine ( season)Covid-19 Vaccine ( season)[facility]tart: 11-13-2023 Influenza vaccinationInfluenza Vaccine (#1)[facility]tart: 10-29-2023 Hemoglobin A1c measurementDiabetes: Hemoglobin X7NDFGW HealthcareStart: 10-25-2023 End: 37-53-7455GH Head WO contrastCT BRAIN WO IVCON Radiology STAT Injury of head, initial encounter Expected: 10/25/2023, Expires: 11/23/2024[facility] Work Phone: Comment on above:Expected: 10/25/2023, Expires: 11/23/2024Start: 10-06-2023 End: 00-81-3735Chfrrrz encounter yjdrlretb42/25/2024 10:50 AM EDT Office Visit [facility] [address] [place] [address] Sixto Aponte MD [address] [place] [address] [facility] DERMStart: 05-17-2024Medicare Annual Wellness (AWV)Medicare Annual Wellness (AWV)[facility] HealthcareStart: 07-27-2023 End: 16-54-1668Idqalxm encounter uraxgrybx91/15/2024 2:00 PM EDT Office Visit [facility] IM [address] [place] [address] Honey Rabago DO [address] [place] [address] [facility] IMStart: 07-21-0977Pfxmoxtqtf A1c measurement Diabetes: Hemoglobin P5HPSMH HealthcareStart: 05-04-2023 End: 10-27-0770Nubvuad encounter wxyucxdel08/21/2024 1:00 PM EST Procedure Visit [facility] [address] [place] [address] Urbano Hutton DPM [address] [place] [address] NOMS SWS PODIATRYStart: 73-22-2796Vbaqfmt Directive DiscussionAdvance Directive DiscussionVeterans Health Administrationtart: 47-64-2937Eiskq-19 Vaccine ()Covid-19 Vaccine ()[facility]tart: 32-11-2836Zaoxg depression screening assessmentDEPRESSION SCREENING [facility]tart: 68-58-0795XDATAUS DIRECTIVE DISCUSSIONADVANCE DIRECTIVE DISCUSSIONVeterans Health Administrationtart: 70-61-1864JAPMYUOWAW ASSESSMENTDEPRESSION ASSESSMENTVeterans Health Administrationtart: 53-79-6221QvzwjpvbeOhiohealth O'[facility] Work Phone: Start: 76-27-2053FihqpjuddOhiohealth O'Bleness Hospital [facility] Work Phone: Start: 19-93-9669JxirityzpOhiohealth O'Bleness Hospital [facility]tr Work Phone: Start: 98-82-9508NfjmqzojnOhiohealth O'Bleness Hospital [facility] Work Phone: Start: 23-08-5109QuzzjuwxpOhiohealth O'Bleness Hospital [facility]tr Work Phone: Start: 21-86-1875AmghgdhugOhiohealth O'Bleness Hospital [facility] Work Phone: Start: 65-06-4786WipecvomvOhiohealth O'Bleness Hospital [facility]tr Work Phone: Start: 60-84-7355IgoskdhqiOhiohealth O'Bleness [facility] Work Phone: Start: 08-75-3609QbjujnrkaOhiohealth O'Bleness [facility] Work Phone: Start: 49-70-3773ArdjlrfrtOhiohealth O'Bleness [facility] Work Phone: Start: 31-55-2938Uiabznfaj [facility] Work Phone: Start: 59-74-2810Bgfeuynag [facility] Work Phone: Start: 07-67-1280Jkmebeeih [facility] Work Phone: Start: 86-67-5514Uhuwyqlvy [facility] Work Phone: Start: 45-76-5838Pgyklkdkv [facility] Work Phone: Start: 04-96-6802EwrbqmgktOhiohealth O'Blen[facility] Work Phone: Start: 71-59-0980Hwxsiknbf [facility] Work Phone: Start: 11-24-2021 End: 50-10-2241VqhnbqazqOhiohealth O'Bleness Hospital CenterStart: 88-53-2698OkhhofyxyOhiohealth O'Bleness Hospital CenterStart: 65-23-3846Xnpbvbptp [facility] Work Phone: Start: 43-99-9788Euyyepzqo [facility] Work Phone: Start: 43-45-3466Dryxjosat [facility] Work Phone: Start: 26-97-4933Zhfdvfszz [facility] Work Phone: Start: 84-50-6189Zealsovaa [facility] Work Phone: Start: 99-87-1368Xomxbkpyu [facility] Work Phone: Start: 54-67-0663Gdrixbmti [facility] Work Phone: Start: 00-42-6035Qcokafwev [facility] Work Phone: Start: 22-47-1944Ibtvmlrxe [facility] Work Phone: Start: 84-21-0005Twqkdimnu [facility] Work Phone: Start: 17-57-0479Unjfubxet vaccinationINFLUENZA (#1) [facility]tart: 90-25-4842Gkqvoxwdqtjvri of prophylactic treatment [facility]: 33-28-4276Izxxwicb admissionMartins Ferry Hospitaltart: 47-31-7350Fwwglphc to clinical allergistMartins Ferry Hospitaltart: 54-41-9998HyutjglngMount Carmel Health System Work Phone: Start: 98-48-4461Rshirkrszb and management of inpatientBack [facility] RehabStart: 11-09-2021 [facility]tart: 32-96-0326PH lumbar spine wo conMR lumbar spine [facility]: 11-05-2021 Administration of prophylactic treatmentMartins Ferry Hospitaltart: 20-83-5618Jzjhluhbupzmpy of prophylactic treatmentMartins Ferry Hospitaltart: 46-66-5208XxgseslkhvyfNixuajlcdMartins Ferry Hospitaltart: 46-46-6500Tlbmmwet to psychiatristMartins Ferry Hospitaltart: 23-89-0425Wsxwnrns admissionMartins Ferry Hospitaltart: 11-04-2021 End: 27-81-5595Zaxkyibkst and management of inpatientBack [facility]5 [facility] RehabStart: 62-14-2868OH of head without contrastCT head/brain [facility]tart: 73-69-9308Twgawnux tomography of thoracic spine without contrastCT thoracic spine [facility]tart: 76-86-7160NP cervical spine without contrastCT cervical spine [facility]tart: 30-79-2392RK of lumbar spine without contrastCT lumbar spine [facility]tart: 60-15-0121Gnbtiuredd RecurringRegistered RecurringMount Carmel Health System-Center for Coordinated CareStart: 20-71-3303Tcapz screening for proteinDiabetes: Urine Protein ScreeningSaint Joseph Health CenterStart: 05-20-2021 COVID-19 VACCINE (4 - Booster for Moderna series)COVID-19 VACCINE (4 - Booster for Moderna series)[facility]tart: 40-45-5058BLKKC-19 VACCINE (4 - Booster for Moderna series)COVID-19 VACCINE (4 - Booster for Moderna series) [facility]tart: 52-15-8918QZXPTWF DIRECTIVE DISCUSSIONADVANCE DIRECTIVE DISCUSSIONVeterans Health Administrationtart: 84-09-9891YXFJXEARBJ ASSESSMENTDEPRESSION ASSESSMENTVeterans Health Administrationtart: 47-65-9466HUI Vaccine (1 - 1-dose 75+ series) RSV Vaccine (1 - 1-dose 75+ series)[facility]: 75-18-1415Lilnt microalbumin profileDTaP,Tdap,Td Vaccine (1 - Tdap)[facility]tart: 40-25-8325VGUC DENSITYBONE DENSITYVeterans Health Administrationtart: 51-96-2085Gitk Density ScreeningBone Density ScreeningVeterans Health Administrationtart: 51-05-1311SXZMPESAKWMZ: 65+ (1 - PCV)PNEUMOCOCCAL: 65+ (1 - PCV)[facility]tart: 25-19-5948SLD Vaccine (1 - 1-dose 60+ series)RSV Vaccine (1 - 1-dose 60+ series)[facility] Administrationtart: 68-72-7503XUBZJVUX VACCINE (1 of 2)SHINGRIX VACCINE (1 of 2) [facility]tart: 39-35-4140Fntyg microalbumin profileDTAP,TDAP,TD (1 - Tdap)[facility]mount HospitalBacteria identified in Urine by CultureURINE CULTURE, ROUTINE Lab Routine 10/30/2023 11:29 PM [facility] End: 34-24-9703UION EEG ROUTINEEPIL EEG ROUTINE NEUROLOGY Routine Recurrent episodes of unresponsiveness 1 Occurrences starting 10/04/2021 until 10/04/2022 [facility] Work Phone: Comment on above:1 Occurrences starting 10/04/2021 until 10/04/2022atient EducationMount Carmel Health System Work Phone: [facility]LeCon[facility] Immunizations Immunization DateImmunizationNotesCare LspvqwpdAcleglwa15-16-7007Kymdyboqvamj Conjugate PCV 20Yuerong Anthony COMMERCIAL ART INSTRUCTOR Work Phone: [facility] CenterOmvgtvasdd02-88-6500Nbvfbcix trivalent influenza vaccine, adjuvanted, preservative freeYuerong Anthony COMMERCIAL ART INSTRUCTOR Work Phone: [facility] CenterMhiwufdtjy51-75-6198jkcrpzhkg virus vaccine, unspecified formulationCajacobyra Htuton DPM Work Phone: [facility] CenterIzhgttxiqb75-05-6735Lfjeewarrgel Conjugate PCV 20 Yuerong Anthony COMMERCIAL ART INSTRUCTOR Work Phone: [facility] CenterUlxyswromk68-74-1192Fjgdnmtyx, Seasonal, Quadrivalent, AdjuvantedGeneric Merged with [facility] HospitalGxpcmkwpvo54-63-1300jckqcwwym virus vaccine, unspecified formulationGeneric Merged with [facility]11-14-2022 influenza, high dose seasonal, preservative-freeGeneric Merged with [facility] 53-28-5663huqbdigbi, high dose seasonal, preservative-freeGeneric Merged with [facility] HospitalMwphyyllmz04-24-0188Fojucnfe trivalent influenza vaccine, adjuvanted, preservative freeGeneric Merged with [facility] HospitalRjfziseqfl57-21-3924qmbgvlchm, high dose seasonal, preservative-freeDawn Fitt Other [employer] Other 279686-06-4380fxuxyifxa virus vaccine, unspecified formulationRobchris Rabago DO Work Phone: [facility]11-30-2018influenza, high dose seasonal, preservative-freeGeneric Merged with [facility]02-20-2018 influenza, injectable, quadrivalent, preservative freeGeneric Merged with [facility] HospitalQviszvrphn66-53-2946tvkfgbkoh, high dose seasonal, preservative-freeGeneric Merged with [facility] HospitalHqtitrhwmp63-45-4452uhtyupopq, seasonal, injectable, preservative freeGeneric Merged with [facility] HospitalJzoyjzxuas53-43-1451zdtigoqysbal conjugate vaccine, 13 valentGeneric Merged with [facility] HospitalMedpzeaxwc70-14-0922fvltmzfgl, high dose seasonal, preservative-freeGeneric Merged with [facility] HospitalWmpdeilrcf46-64-2879avksoiwxumua polysaccharide vaccine, 23 valentGeneric Merged with [facility]11-01-2012 seasonal influenza, intradermal, preservative freeGeneric Merged with [facility] HospitalThgexrnrqp38-11-9010igbokqws influenza, intradermal, preservative freeGeneric Merged with [facility] HospitalKeeahbrhzf37-95-0847atbkuke and diphtheria toxoids, adsorbed, preservative free, for adult use (2 Lf of tetanus toxoid and 2 Lf of diphtheria toxoid)Generic Merged with [facility] HospitalXmxqjpeigj20-52-9846bvygjndv influenza, intradermal, preservative freeGeneric Merged with [facility] Payers DatePayer CategoryPayerPolicy [id number]-fkw [id number] 2024Medicare (Managed Care)[facility] MEDICARE ADVANTAGE [id number] Health [id number] [id number] 44-98-8905CxvqqacNJGMAB BLUE CROSS AND BLUE SHIELD [facility] [id number] 2021- [phone] [address] [place] [address] [id number] 1.2.840.180746.1.13.159.2.7.3.041447.22934-80-9256Fwmxjrj 1.2.840.989992.1.13.159.2.7.3.992136.315 [id number] fzx8o6i1-9675-91y9-s85q-9590x990[id number] 2.16.840.1.545630.3.579.[id number] 2.16.840.1.299117.3.579.2.92211-79-1959Fcayibh6838102 2.16.840.1.229257.3.579.2.44587-18-7204Qlgfeab7278572 2.16.840.1.461103.3.579.2.60566-15-7478Wqmmuyk0802013 2.16.840.1.138238.3.579.[id number] 2.16.840.1.060481.3.579.2.27315-52-9201Ptgyhuu0749400 2.16.840.1.778345.3.579.[id number] 2.16.840.1.707327.3.579.2.[id number] 2.16.840.1.728499.3.579.2.51[id number] 2.16.840.1.417831.3.579.2.263890-91-8062Cvsejqr7711010 2.16.840.1.189789.3.579.2.079309-10-1763Xoowghx1080805 2.16.840.1.230568.3.579.2.339533-24-9225Cfrhqdt3669586 2.16.840.1.520463.3.579.2.269279-56-4718Bicpqpa0777254 2.16.840.1.775711.3.579.2.907806-47-3090Bmihuel8174116 2.16.840.1.436420.3.579.2.718085-72-8768Iezskei7238528 2.16.840.1.456367.3.579.2.548180-89-7182Uostqbw2303794 2.16.840.1.496994.3.579.2.1259MedicareMedicare Rehab-IP Part [id number] Health [id number]-0382-6mh68ue1-[id number] 2.16840.1.985[id number] [id number] Social History DateTypeDetailFacilityStart: 07-31-2020 End: 54-67-4631Tnjdrlv smoking status NHISEx-smoker (finding)[facility] Start: 10-24-5793[facility]23 End: 03-48-9987Bdo [facility] End: 36-15-0157Jpezafw use and exposureSmokeless tobacco non-userVeterans Health Administrationtart: 09-21-2021 End: 47-91-3853Xywqtuwf to SARS-CoV-2 (event)Not sureMarymount HospitalHistory of tobacco useCurrent smokerVeterans Health Administrationtart: 11-12-2021 End: 60-71-7536Oprmubk smoking status NHISNever smoked tobacco (finding) [facility] End: 55-00-5270Xcvurbu of Social functionVeterans Health Administrationtart: 80-31-7145Zhqwf Depression Screening Dcxwytsvap4Jkfpgegog ClinicStart: 24-63-4728Flylxs identity Identifies as female gender (finding)[facility]: 72-24-8946Vebmps orientationHeterosexual (finding)[facility]: 48-69-5514Gqjxdem intake Current drinker of alcohol (finding)[facility] HealthcareHow often to you have a drink containing alcohol?NeverST. [facility]OR[facility] HealthcareStart: [id number] Comment caffeine: coffee 1-2 cups a dayST. [facility] HealthcareStart: 96-14-1223Ywe Assigned At BirthNot on fileST. GEORGE REG[facility] HealthcareStart: 10-06-2023 End: 70-67-4877Ruklbifrn beverage intakeLifetime non-drinker (finding)[facility] HealthcareStart: 88-74-9029JyrQrgbwx (finding)[facility] Medical Equipment Procedure CodeEquipment CodeEquipment Original TextEquipment IdentifierDatesUSE DIRECTED BEFORE MEALS AND BEDTIMEStart: 08-28-2018 End: 78-99-3986Vzgteob on above:USE DIRECTED BEFORE MEALS AND BEDTIME Goals DatePatient GoalDesired Activity/State Functional Status BhcfQdllozbrdkSsyrffTawjgzhw24-22-5989Tyabaag Health Questionnaire 2 item (PHQ- 2) [Reported][facility] CenterXocujgetlq97-17-1724Xtkehheomh statusPatient is Progressing Toward [facility] Work Phone: [phone]rdhweqi statusPatient is Progressing [facility]ard [facility] Work Phone: [phone] statusPatient at Baseline [facility] Work Phone: Mental Status NndsSzfubxgtinXuhpxpJmtobbks01-43-3899Mcbuajwpb functionCognitive Status [facility] Work Phone: [phone] functionCognitive Status Patient Not at [facility] Work Phone: [phone] functionCognitive Status [facility] Work Phone: Clinical Notes 12-10-2020 to 09-25-2024 Note Date & DwnnWcitYrtoxmfl71-75-1965 History of Present illness Narrative* Sixto Aponte MD - 09/25/2024 1:30 PM EDT Skin Check Location: Patient requests a skin examination from the waist up Dermatologic history: no history of skin cancer, no history of atypical moles Last visit: 1 year ago Follow up Diagnosis: Seborrheic Dermatitis Location: scalp, ears Last visit: 1 year ago Symptoms: leaking at times , flaking; less itching Status: stable; good and bad days Current treatment: Ketoconazole shampoo, Fluocinolone scalp oil, Flucinonide solution (lost prescriptions at assisted living facility; needs refills) All pertinent medical history, medications, and allergies were reviewed. General Exam: alert, oriented to person, place, and time, normal affect, well appearing uses a wheelchair Accompanied by family member, resides at [facility] A complete skin exam was offered, pt declined. Areas not examined despite medical recommendation: From the waist down Scalp, Examined Head, Face Examined Neck Examined Chest Examined Patient kept bra on Back Examined Abdomen Examined Right arm Examined Left arm Examined Hands Examined Digits,nails: Examined Lymphatics: Not examined Skin Exam 1. OTHER SEBORRHEIC DERMATITIS Scalp Erythema and scale. Stable on scalp, flaring on face At this time as patient is controlled on the scalp, plan to restart Ketoconazole shampoo 2-3 times weekly, leave on 5-10 min, then rinse. Refills prescribed today. Plan to start Ketoconazole cream for patient to use bid when flared on the face. Can call in for dermasmoothe oil if ears or flaring orlidex solution if scalp is flaring. ketoconazole (NIZOral) 2 % cream - Scalp Apply topically Daily Apply thin layer to affected areas on the face when flared, hold when clear, 30 day supply Related Medications ketoconazole (NIZOral) 2 % shampoo Lather on scalp 2-3 x weekly, leave on 5 min before rinsing 2. LENTIGINES Head - Anterior (Face) Scattered marte macules in sun-exposed areas. The patient was informed that lentigines are benign pigmented lesions that occur on sun-exposed andsun-damaged skin. No treatment is necessary. Recommended regular use of broad spectrum sunscreen SPF 30 or higher 3. SEBORRHEIC KERATOSIS Generalized Stuck on verrucous, marte-brown papules and plaques. Patient was counseled regarding these benign growths. Removal is normally not necessary, but they may be removed if they are symptomatic or for cosmetic reasons. 4. CAPILLARY ANGIOMA (3) Generalized, Left Forearm - Anterior, Right Forearm - Anterior Scattered negro-red papule(s). The patient was informed that angiomas are benign growths on the the skin. No treatment is necessary. Next Visit: 1 year documented in this encounterSaint Joseph Health CenterZmukhzcnqb55-72-5749 History of Present illness Narrative* Urbano Hutton, DPM - 05/17/2024 1:00 PM EST Images from the original note were not included. HPI: Diabetic/Routine Nail Care: Patient presents in office [...] by: shoe gear, pressure. Risk factors: diabetes. Allergies: Hydrocodone Bitartrate Rosuvastatin Calcium Adhesive Tape: Rash Examination: General Examination: GENERAL EXAMINATIONalert, well hydrated, in no distress , awake, aware of surroundings. FOOT EXAM: Date of Last Foot Exam 05/17/24 Vascular: DORSALIS PEDIS PULSE:1/4, bilaterally. POSTERIOR TIBIAL PULSE:0/4, bilaterally. TEMPERATURE GRADIENT:warm to cool, bilaterally. EDEMA:to the bilateral lower extremity/ankle. CAPILLARY FILLING TIME(sec):less than 3 seconds, bilateral. Neurologic: VIBRATORY:bilateral sensory peripheral neuropathy. SEMMES-DANILO 5.07 MONOFILAMENTdecreased bilaterally. Dermatologic: SKIN FINDINGS: There is dry, flaking skin with erythematous base noted to the bilateral foot in a moccasin distribution. There are no blisters or fluid filled papules noted. Webspaces 4 bialteral aremacerated with flaking skin noted HYPERKERATOSIS:none. NAIL PATHOLOGY:digits 1-5 bilateral are intact.. [...] tibial tendinitis, left leg - M76.822 Plan: Diabetes, Onychomycosis: 1. Nails were debrided in length and thickness by manual and mechanical means. 2. Advised patient on continued proper diabetic foot care including daily monitoring of their feet for any new complaints or concerns that may arise. 3. Discussed importance of tight blood sugar control to prevent future complications. 4. RTC: 9-12 weeks or as needed if problems arise. Tinea Pedis: Patient was instructed on use of over the counter antifungal medication for the tinea infection andinstructed on daily use. We discussed wrae-hai-dmlpsqn versus prescription and topical medications.Patient would like to proceed with a OTC medication. We also discussed the use of Lysol disinfectant spray to the shower and shoes to prevent chronic reinfection. Advised on changing socks during the day if there is increased moisture. RTC: 3 weeks for recheck. I did look into the patient's DM shoes. We called them back in January that the shoes [place] wanted didn't come in a size 12. They never called back with the shoe information so no shoes have been ordered. I will put in a referral for new shoes today. documented in this encounterSaint Joseph Health CenterStzsrifiad07-43-5579 History of Present illness Narrative* Gloria Perez APRN.ELDON - 03/06/2024 1:30 PM EST [facility] - FOLLOW UP EVALUATION Primary Neurologist: Tyree Perez MD Primary BETHEL: ELDON Chicas, DO [address] [facility] [address] Dear Honey Rabago, DO: I had the pleasure of seeing Ms. Barker for follow-up today. As you know she is a 83 year old right-handed female with a history of Parkinson's disease since 2013. She is seen with her son. We had a visit using: Archivas Subjective Previous Plan-10/25/2023 Visit: Parkinson's disease: Continue [...] and even if the CT is normal, sometimesbrain bleeds can be delayed so if you [...] is not doing physical therapy as when shewas getting ready to schedule it is when she found out about the fracture. She will be following upwith a physician soon for this and will [...] amplitude decrements near the end of the 10taps. Finger Taps Left 2-Mild. a) 3 to [...] has progressed since 2021 with associated 6 mmretropulsion into the spinal canal. No acute process [...] physical therapy as she was told she hasa thoracic fracture and will be seeing a [...] Mirtazapine 7.5mg 1 Level of service : 39898 ( 30-39 min). Time spent 34 min on the day of service, which included preparing to see the patient, mlqi-xa-yerp patient care, completing clinical documentation, obtaining and/or reviewing separately obtained history, performing a medically appropriate examination, and counseling and educating the patient/family/caregiver. Gloria Perez APRN.DYNAMICS AX DEVELOPER documented in this encounterMarymount Hospital12-24-2024 NoteHNO ID: [id number] Author: GLORIA PEREZ APRN.ELDON Service: ? Author Type: Nurse Practitioner Type: Progress Notes Filed: 03/11/2024 10:02 Note Text: [facility] - FOLLOW UP EVALUATION Primary Neurologist: Tyree Perez MD Primary BETHEL: ELDON hCicas DO [address] [place] [address] Dear Honey Rabago, DO: I had the pleasure of seeing Ms. Barker for follow-up today. As you know she is a 83 year old right-handed female with a history of Parkinson's disease since 2013. She is seen with her son. We had a visit using: Archivas Subjective Previous Plan-10/25/2023 Visit: Parkinson's disease: Continue [...] Rash Phenergan [Prometha* Contraindicati (more content not included)...[facility]12-23-2024 Miscellaneous Notes* Telephone Encounter - Lilibeth Reagan - 03/05/2024 2:06 PM EST Contact re: going off a call back to schedule OT for Parkinsons. He noted she had fallen again and has a compressed fracture right above her previous one. She was in the hospital re: late find off x-ray of 1st fracture and is in once again. He noted OT will have to be put on hold to start up due tofalls. documented in this encounterSaint Joseph Health CenterQvxveuuthy12-04-1947 Telephone encounter Note* Telephone Encounter - Lilibeth Reagan - 03/05/2024 2:06 PM EST Contact re: going off a call back to schedule OT for Parkinsons. He noted she had fallen again and has a compressed fracture right above her previous one. She was in the hospital re: late find off x-ray of 1st fracture and is in once again. He noted OT will have to be put on hold to start up due tofalls. [facility] CenterAidrzglorl50-34-7897 NoteHNO ID: [id number] Author: AUDREY TORRES APRN.DYNAMICS AX DEVELOPER Service: ? Author Type: Nurse Practitioner Type: Progress Notes Filed: 02/24/2024 15:47 Note Text: The patient did not show up for this appointment.[facility] 02-24-2024 History of Present illness Narrative* Audrey Torres APRN.DYNAMICS AX DEVELOPER - 02/24/2024 3:47 PM EST The patient did not show up for this appointment. documented in this encounterMarymount Hospital12-12-2024 Telephone encounter Note * Telephone Encounter - Lilibeth Reagan - 02/23/2024 4:14 PM EST Spoke to son, transportation, and he scheduled her Eval on 02/27 w/ Betina Wise, OT. [facility] CenterYttbstotpf99-49-5166 Miscellaneous Notes* Telephone Encounter - Lilibeth Reagan - 02/23/2024 4:14 PM EST Spoke to son, transportation, and he scheduled her Eval on 02/27 w/ Betina Wise, OT. * Telephone Encounter - Lilibeth Reagan - 02/22/2024 9:37 AM EST LM requesting a call back to schedule OT for Parkinson's. Tuesday w/ Lisa can be offered. documented in this encounterSaint Joseph Health CenterUgepcxgqiu83-11-5988 Telephone encounter Note* Telephone Encounter - Lilibeth Reagan - 02/22/2024 9:37 AM EST LM requesting a call back to schedule OT for Parkinson's. Tuesday w/ Lisa can be offered. [facility] CenterBownpffzia18-49-9302 History of Present illness Narrative* Mac Villasenor NP - 02/21/2024 1:00 PM EST Images from the original note were not included. Al[place] Barker is a 83 y.o. female presents with chief complaint of 3 Month Follow Up HPI: HPI Patient fell Tuesday. She was seen at [facility] on 02/17. ER and CT are in [...] subsequently taken to the emergency room at [facility]. She has been receiving physical therapy from [...] hose recently. She is still seeing the soaker hides. She has a CT scan scheduled for the end of April. MEDICATIONS Current: Synthroid, atorvastatin, metformin, metoprolol, Mounjaro IMMUNIZATIONS She is up to date with her pneumonia and influenza vaccines. 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[facility]) Chronic venous insufficiency Circulating anticoagulant disorder ([facility]) 09/29/2020 Compression fracture of L1 lumbar vertebra ([facility]) Coronary atherosclerosis of mi'kmaq coronary artery ([facility]) Current use of proton pump inhibitor Depression ([facility]) Dermatophytosis of nail Esophageal dilatation Esophageal dysphagia Gait instability Gastroesophageal reflux disease without esophagitis GERD (gastroesophageal reflux disease) Hallux hammertoe, right History of DVT (deep vein thrombosis) Hyperlipidemia ([facility]) Macular degeneration (senile) of retina Mild cognitive [...] Pulmonary fibrosis (CMS/HCC) PVD (peripheral vascular disease) ([facility]/HCC) Recurrent falls Severe obesity (BMI >= 40) ([facility]/HCC) Sleep apnea Type 2 diabetes mellitus with other diabetic neurological complication ([facility]/HCC) Type II diabetes mellitus ([facility]) Urge incontinence Vaginitis, atrophic Vitamin D deficiency SURGICAL HISTORY: Past Surgical History: Procedure Laterality Date APPENDECTOMY CARDIAC CATHETERIZATION Left CATARACT EXTRACTION Bilateral 2013 CHOLECYSTECTOMY COLONOSCOPY 2010 FINGER NAIL SURGERY 09/2018 removal of ingrown toenails x4 on bilateral feet HEMORRHOIDECTOMY 1964 KNEE SURGERY OTHER SURGICAL HISTORY arthroscopy PULMONARY FUNCTION TEST - $50.00 STRESS TEST WITH MYOCARDIAL PERFUSION 2006 THYROIDECTOMY 2007 TONSILLECTOMY SOCIAL HISTORY: Social History [...] tablet TID cholecalciferol (Vitamin D-3) 50 MCG (1999) capsule 1 capsule, Every 24 hours clotrimazole [...] 3x/week x 1month then 2x/week x 1 monththen once weekly Fluocinolone Acetonide Scalp 0.01 % [...] % ointment Topical, 2 times daily, Use Cascade Prodrug coupon
Use bid for 2 weeks to [...] 7.5 mg weekly for 3 months. A prescriptionfor Mounjaro 7.5 mg will be sent to [facility]. Blood work, including a complete blood count, kidney function tests, and cholesterol levels, will be conducted today. If her A1c does not improve, furtheradjustments to her medication will be considered. 2. [...] balance, strengthening. Diagnosis Plan 1. Morbid obesity ([facility]) Ambulatory referral to Physical Therapy 2. Type 2 diabetes mellitus with other specified complication, without long-term current use of insulin ([facility]) POCT glycated hemoglobin, total docked device Ambulatory referral to Physical Therapy Tirzepatide (Mounjaro) 7.5 MG/0.5ML solution auto-injector 3. Parkinson's disease without dyskinesia or fluctuating manifestations ([facility]) Ambulatory referral to Physical Therapy 4. Frequent falls Ambulatory referral to Physical Therapy 5. Acquired hypothyroidism ([facility]) TSH 6. Type 2 diabetes mellitus with hyperglycemia ([facility]) 7. Immunodeficiency due to conditions classified elsewhere ([facility]) Patient is here for follow up of chronic conditions. I am following Dr Rabago's established plan of care for these issues. Dr Rabago is in the office suite today and is supervising patient care. documented in this encounterSaint Joseph Health CenterBimialbkro64-31-1004 History of Present illness Narrative* Urbano Hutton DPM - 02/16/2024 1:00 PM EST Images from the original note were not [...] shoes and inserts at today's office visit. Thecatalog's were dispensed and patient is going to select a pair and be fitted. They are aware of therequired paperwork that needs to be completed to [...] needed if problems arise.. documented in this encounterSaint Joseph Health CenterLwajqoorsl28-02-2977 History of Present illness Narrative* Mac Villasenor NP - 11/23/2023 9:00 AM EDT Images from the original note were not [...] L1 lumbar vertebra (CMS/HCC) Coronary atherosclerosis of mi'kmaq coronary artery (CMS/HCC) Current use of proton [...] 3x/week x 1month then 2x/week x 1 monththen once weekly fluconazole (DIFLUCAN) 150 mg, Oral, [...] % ointment Topical, 2 times daily, Use Goomzeex coupon
Use bid for 2 weeks to [...] Treatment includes oral antifungal Diflucan 150 mg fortwo doses and high potency steroid ointment for 2 weeks. The possibility of using vaginal estrogen for long-term maintenance was also discussed. If there is no improvement, a CUSTOMER ASSOCIATE referral will be considered. She will provide an update on her condition in 1 week. Symptoms of burning of vagina with white discharge. 2. Vaginal yeast infection. The yeast infection is likely secondary to uncontrolled diabetes. Treatment includes oral antifungal Diflucan 150 mg for two doses and high potency steroid ointment for 2 weeks. If there is no improvement, a CUSTOMER ASSOCIATE referral will be considered. She will provide an update on her condition in 1 week. 3. Uncontrolled diabetes. She has just received Mounjaro and started using it. Diagnosis Plan 1. Vaginal yeast infection fluconazole (Diflucan) 150 MG tablet 2. Atrophic vaginitis triamcinolone (Kenalog) 0.5 % ointment 3. Diabetic peripheral neuropathy associated with type 2 diabetes mellitus ([facility]) documented in this encounterSaint Joseph Health CenterRbpvpnpbzg19-49-8916 History of Present illness Narrative* Urbano Hutton DPM - 11/17/2023 2:30 PM EDT Images from the original note were not [...] shoes and inserts at today's office visit. Thecatalog's were dispensed and patient is going to select a pair and be fitted. They are aware of therequired paperwork that needs to be completed to [...] foot to determine sizine. [facility] pairs of heat molded insoles. 4. Patient will be contacted when the necessary paperwork is completed to schedule an appointment for pick-up. Neuropathy: Unfortunately the Marlon is not covered by her insurance, it is non-formulary. She does not want to proceed with application due to the cost at this time. documented in this encounterNOMS Epyaoikosf44-50-8795 Telephone encounter Note* Telephone Encounter - Batsheva Alarcon MA - 11/16/2023 5:53 PM EDT Please fix the directions for this medication. The pharmacist said it is unclear. Thank you. [facility] Uqdoyeerbu64-18-5791 Miscellaneous Notes* Telephone Encounter - Batsheva Alarcon MA - 11/16/2023 5:53 PM EDT Please fix the directions for this medication. The pharmacist said it is unclear. Thank you. documented in this encounterSaint Joseph Health CenterSpcypdxzpa71-04-6263 History of Present illness Narrative* Mac Villasenor NP - 11/15/2023 1:30 PM EDT Images from the original note were not [...] has been under the care of Dr. Martinez for her lung condition, which has shown improvement. However, she experiences intermittent episodes of breathlessness, making it difficult for her to speak orwalk short distances. She reports a significant weight [...] prescriptions and Vivian sensors be sent to [facility]. She has not received her influenza vaccine this year. IMMUNIZATIONS She had a couple of pneumonia vaccines in 2013 and 2014. 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[facility]) Chronic venous insufficiency Circulating anticoagulant disorder ([facility]) 09/29/2020 Compression fracture of L1 lumbar vertebra ([facility]/HCC) Coronary atherosclerosis of mi'kmaq coronary artery ([facility]) Current use of proton pump inhibitor Depression ([facility]/HCC) Dermatophytosis of nail Esophageal dilatation Esophageal dysphagia Gait instability Gastroesophageal reflux disease without esophagitis GERD (gastroesophageal reflux disease) Hallux hammertoe, right History of DVT (deep vein thrombosis) Hyperlipidemia ([facility]/HCC) Macular degeneration (senile) of retina Mild cognitive impairment Mixed hyperlipidemia ([facility]/HCC) Multilevel degenerative disc disease Neuropathy Occipital neuralgia of right side On warfarin therapy Osteoarthritis involving multiple joints on both sides of body Osteoarthritis involving multiple joints on both sides of body Other seborrheic dermatitis Parkinson's disease ([facility]/HCC) Posterior tibial tendinitis, left leg Primary osteoarthritis of left hand Pulmonary fibrosis ([facility]) PVD (peripheral vascular disease) ([facility]) Recurrent falls Severe obesity (BMI >= 40) ([facility]) Sleep apnea Type 2 diabetes mellitus with other diabetic neurological complication ([facility]) Type II diabetes mellitus ([facility]) Urge incontinence Vaginitis, atrophic Vitamin D deficiency [...] Blood Gluc Sensor (FreeStyle Vivian 2 Sensor) misc apply 1 SENSOR to back OF UPPER ARM REMOVE AND REPLACE every 14 days cyanocobalamin (VITAMIN B-12) 1,000 mcg, Oral, Daily diclofenac sodium 2 g, Topical estradiol (Estrace) 0.1 MG/GM vaginal cream Apply to vagina 3x/week x 1month then 2x/week x 1 monththen once weekly Fluocinolone Acetonide Scalp 0.01 % [...] Parkinson's disease without dyskinesia or fluctuating manifestations ([facility]) 2. Type 2 diabetes mellitus with other specified complication, unspecified whether chcf insulin use ([facility]) POCT Glycated hemoglobin, total Tirzepatide (Mounjaro) 2.5 MG/0.5ML solution pen-injector Comprehensive metabolic panel CBC and differential Hemoglobin a1c with eag Lipid panel Comprehensive metabolic panel CBC and differential Hemoglobin a1c with eag Lipid panel 3. GERMANIA (obstructive sleep apnea) 4. Pulmonary fibrosis ([facility]) 5. Vaginal yeast infection clotrimazole (Lotrimin) 1 [...] months despite no changes in her diet. StartingMounjaro may help with weight loss. She is advised to avoid high-carb foods and sugary desserts andto opt for sugar-free alternatives when possible. 3. Parkinson's Disease. She is doing well on her current regimen. Continue Sinemet as prescribed. She follows up with Dr. Perez in neurology. 4. Obstructive Sleep Apnea. She remains compliant with her therapy. Weight loss is recommended to improve her condition. 5. Pulmonary Fibrosis. She has idiopathic pulmonary fibrosis and is followed by Dr. Martinez in pulmonology. Recent CT scans show less [...] up in 3 months. documented in this encounterSaint Joseph Health CenterHkcwkljbmi70-23-3856 Instructions* Patient Instructions* Gloria Perez APRN.DYNAMICS AX DEVELOPER - 10/25/2023 2:18 PM EDT It was [...] and even if the CT is normal, sometimesbrain bleeds can be delayed so if you [...] No follow-ups on file.Return at or around: 02/22/24 If there are any concerns before your next visit, please call or you can send a message through [employer]. You can also now schedule and select appointments through [employer]. Gloria Perez APRN.ELDON documented in this encounterMarymount Hospital08-13-2024 History of Present illness Narrative* Gloria Perez APRN.CNP - 10/25/2023 1:30 PM EDT [facility] - FOLLOW UP EVALUATION Honey Rabago DO [address] [facility] [address] Dear Honey Rabago DO: I had the [...] mind about physical therapy and if the soaker hides approves Depression and anxiety: Continue Venlafaxine (Effexor) and Mirtazapine Continue therapy Continue the activities you have been doing Sialorrhea (drooling) You have been provided with a hand out on drooling. Please do not hesitate tolet me know if you have any questions about anything you read. Fatigue: Please make an effort to sleep in your bed since this is when you use your Cpap and therefore feel better Interval History: She has been more sad lately as one of the ladies she is close to at her facilityleft three weeks ago and she does not [...] 01/18/2023: Pt takes 2 tabs daily per [facility] med list MEDICATION, NON-DATABASE 750 [...] amplitude decrements near the end of the 10taps. Finger Taps Left 2-Mild. a) 3 to [...] and even if the CT is normal, sometimesbrain bleeds can be delayed so if you [...] or around: 02/22/24 Level of service : 45626 ( 30-39 min). Time spent 39 min on the day of service, which included preparing to see the patient, [id number] patient care, completing clinical documentation, obtaining and/or reviewing separately obtained history, performing a medically appropriate examination, counseling and educating the patient/family/caregiver, and ordering medications, tests, or procedures. Gloria Perez APRN.DYNAMICS AX DEVELOPER documented in this encounterMarymount Hospital08-13-2024 NoteHNO ID: [id number] Author: GLORIA PEREZ APRN.ELDON Service: ? Author Type: Nurse Practitioner Type: Progress Notes Filed: 11/02/2023 21:17 Note Text: [facility] - FOLLOW UP EVALUATION Honey Rabago DO [address] [facility] [address] Dear Honey Rabago DO: I had the [...] mind about physical therapy and if the soaker hides approves Depression and anxiety: Continue Venlafaxine (Effexor) [...] (ESTRACE) 0.01 % (0 (more content not included)...[facility]04-11-2024 Instructions* Patient Instructions* Gloria Perez APRN.DYNAMICS AX DEVELOPER - 06/23/2023 3:54 PM EDT It was a pleasure to see you today. We addressed the following diagnoses: Parkinson's disease without dyskinesia, with fluctuating manifestations (hcc) My recommendations are as follows: 06/23/2023 Visit: Parkinson's disease: Change the timing of the Sinemet to that noted below. Please let me know if you change your mind about physical therapy and if the soaker hides approves Depression and anxiety: Continue Venlafaxine (Effexor) and Mirtazapine Continue therapy Continue the activities you have been doing Sialorrhea (drooling) You have been provided with a hand out on drooling. Please do not hesitate tolet me know if you have any questions [...] or you can send a message through [employer]. You can also now schedule and select appointments through [employer]. Gloria Perez APRN.DYNAMICS AX DEVELOPER From the Parkinson's Foundation: https://www.parkinson.org What Can [...] drooling. Another tactic is to wear a sweatbandon your wrist. This can be used to [...] this is perceived as a side effect (drymouth), but in this case it is an advantage. Other anticholinergic side effects may be seen, including drowsiness, confusion, vomiting, dizziness, blurred vision, constipation, flushing, headache andurinary retention. Anticholinergics can also have mental side [...] used to treat dystonia. Injection of botulinum to phiilppe A into the salivary glands of the [...] treatment for severe drooling but is more costlythan other treatments, which your physician may want [...] can make phlegm worse. documented in this encounterMarymount Hospital04-11-2024 History of Present illness Narrative* Gloria Perez APRN.CNP - 06/23/2023 3:00 PM EDT [facility] - FOLLOW UP EVALUATION Honey Rabago DO [address] [facility] [address] Dear Honey Rabago DO: I had the pleasure of seeing Ms. Barker for follow-up today. As you know she is a 82 year old right-handed female with a history of Parkinson's disease since 2013. She is seen with her son. Subjective Previous Plan-01/20/2023 Visit: Parkinson's disease: Continue current medication schedule but discuss with the senior field engineer if you can take the Sinemet on [...] 01/18/2023: Pt takes 2 tabs daily per [facility] MEDICATION, NON-DATABASE 750 mg two times a [...] amplitude decrements near the end of the 10taps. Finger Taps Left 2-Mild. a) 3 to [...] mind about physical therapy and if the soaker hides approves Depression and anxiety: Continue Venlafaxine (Effexor) and Mirtazapine Continue therapy Continue the activities you have been doing Sialorrhea (drooling) You have been provided with a hand out on drooling. Please do not hesitate tolet me know if you have any questions about anything you read. Fatigue: Please make an effort to sleep in your bed since this is when you use your Cpap and therefore feel better Updated Movement Disorders Medication Schedule: Medications 7am 11am 3pm 7pm Bedtime Sinemet 25/100 1.5 1 1 1 Effexor 150mg 1 Effexor 75mg 1 Mirtazapine 7.5mg 1 Level of service : 35020 (40-54 min). Time spent 53 min on the day of service, which included preparing to see the patient, [id number] patient care, completing clinical documentation, obtaining and/or reviewing separately obtained history, performing a medically appropriate examination, and counseling and educating the patient/family/caregiver. Gloria Perez APRN.ELDON documented in this encounterMarymount Hospital04-11-2024 NoteHNO ID: [id number] Author: GLORIA PEREZ APRN.CNP Service: ? Author Type: Nurse Practitioner Type: Progress Notes Filed: 06/23/2023 20:12 Note Text: [facility] - FOLLOW UP EVALUATION Honey Rabago DO [address] [facility] [address] Dear Honey Rabago DO: I had the pleasure of seeing Ms. Barker for follow-up today. As you know she is a 82 year old right-handed female with a history of Parkinson's disease since 2013. She is seen with her son. Subjective Previous Plan-01/20/2023 Visit: Parkinson's disease: Continue current medication schedule but discuss with the senior field engineer if you can take the Sinemet on [...] lot online or on TV, $15/month on lotStentysy tickets (in past also) Palliative Concerns: Caregiver burden: In assisted living so now less stre (more content not included)...[facility]12-01-2023 Miscellaneous Notes* Addendum Note - Anu Hillman RN - 02/11/2023 2:59 PM ESTAddended by: ANU HILLMAN on: 02/11/2023 02:59 PM Modules accepted: Orders * Telephone Encounter - Anu Hillman RN - 02/11/2023 2:57 PM EST Order pended to preferred pharmacy Last OV 01/20/23 Next OV 06/23/23 * Telephone Encounter - Gali Lange - 02/11/2023 1:52 PM EST E- [id number] [place] [address] - [address] [facility] [phone] [id number] carbidopa-levodopa (SINEMET 25-100) 25-100 mg per tablet Patient son called in today in regards to medication and wanting to switch pharmacy, they were toldthe best way to do this would be to request a new prescription. They would like it sent to [facility] Thank you! documented in this encounterMarymount Hospital11-09-2023 Instructions* Patient Instructions* Gloria Perez APRN.CNP - 01/20/2023 3:46 PM EST It was a pleasure to see you today. We addressed the following diagnoses: Parkinson's disease without dyskinesia, with fluctuating manifestations (primary encounter diagnosis) Depression with anxiety My recommendations are as follows: 01/20/2023 Visit: Parkinson's disease: Continue current medication schedule but discuss with the senior field engineer if you can take the Sinemet on [...] or you can send a message through [employer]. You can also now schedule and select appointments through [employer]. Gloria Perez APRN.ELDON documented in this encounterMarymount Hospital11-09-2023 History of Present illness Narrative* Gloria Perez APRN.CNP - 01/20/2023 3:00 PM EST [facility] - FOLLOW UP EVALUATION Honey Rabago DO [address] [place] [address] Dear Honey Rabago DO: I had the [...] a laundry basket while multitasking. She was nothurt. Gait freezing: No Autonomic/Pain Lightheadeness on standing: [...] 01/18/2023: Pt takes 2 tabs daily per [facility] med [facility] MEDICATION, NON-DATABASE 750 mg two times a [...] getting her Parkinson's disease medication on time erin is going to discuss with the senior field engineer, see if she can take her Parkinson's [...] current medication schedule but discuss with the senior field engineer if you can take the Sinemet on [...] Mirtazapine 7.5mg 1 Level of service : 32555 (40-54 min). Time spent 47 min on the day of service, which included preparing to see the patient, [id number]-[id number] patient care, completing clinical documentation, obtaining and/or reviewing separately obtained history, performing a medically appropriate examination, counseling and educating the patient/family/caregiver, and ordering medications, tests, or procedures. Gloria Perez APRN.CNP documented in this encounterMarymount Hospital04-27-2023 Instructions* Patient Instructions* Gloria Perez APRN.CNP - 07/08/2022 3:56 PM [...] or you can send a message through [employer]. You can also now schedule and select appointments through [employer]. Gloria Perez APRN.CNP documented in this encounterMarymount Hospital04-27-2023 History of Present illness Narrative* Gloria Perez APRN.CNP - 07/08/2022 3:00 PM EDT [facility] - FOLLOW UP EVALUATION Honey Rabago DO, DO [address] [place] [address] Dear Honey Rabago DO, DO: I had [...] likes the staff. The director and director sales and marketing have to chip into cook since the [employer] cook and this has been good from [...] feet caught and fell. She needed help gettinghelp getting up and only had a little [...] or around: 01/07/23 Level of service : 54429 (40-54 min). Time spent 47 min on the day of service, which included preparing to see the patient, [id number]-tv-[id number] patient care, completing clinical documentation, obtaining and/or reviewing separately obtained history, performing a medically appropriate examination, counseling and educating the patient/family/caregiver, and ordering medications, tests, or procedures. Gloria Perez APRN.ELDON documented in this encounterMarymount Hospital01-31-2023 Miscellaneous Notes* Telephone Encounter - Anu Hillman RN - 04/13/2022 1:27 PM EST Order pended Last OV 02/12/22 Next OV 07/08/22 Routing to provider for review * Telephone Encounter - Belen Tim - 04/13/2022 12:53 PM EST Patient has been identified by name and date of : Yes Requested Prescriptions Pending Prescriptions Disp Refills carbidopa-levodopa (SINEMET 25-100) 25-100 mg per tablet 405 tablet 3 Sig: Take 1.5 tablets by mouth three times daily. RX INSTRUCTIONS: Patient aware RX will be sent to pharmacy. No need to notify patient. Belen Tim documented in this encounterMarymount Hospital12-05-2022 Miscellaneous Notes* Telephone Encounter - Gloria Perez APRN.CNP - 02/15/2022 1:53 PM EST I tried Gina ignacio, the social media director in her primary care provider's office. I left a message requesting a call back. AYO Chicas documented in this encounterMarymount Hospital10-04-2022 Evaluation note* Encounter Date Diagnosis Assessment Notes Treatment Notes Treatment Clinical Notes Dec, Medication monitoring encounter (ICD-10 - Z51.81) Referring Provider: Honey Rabago Diagnosis: DVT INR Goal: 2-3 INR: 2.0 ( 12/14) Warfarin Tablet Size: 2mg Tuesday: 2mg Tuesday: 2mg Tuesday: 1mg Tuesday: 2mg : 1mg Tuesday: 2mg Tuesday: 2mg Total Weekly Dose: 12mg Continue current plan. Follow up in 3 weeks. Please call patient's son Jose David at [phone] with results. Spoke to Jose David and discussed above. Spoke with KORTNEY Albert ([phone]) and given above instructions. Patient may get home testing for INRs set-up, will inform clinic if home testing begins. Home Health Order: Draw PT/INR on 01-04-22 Seen by Justin Nicolas PharmD [employer] Other 09-20-2022 Evaluation note* Encounter Date Diagnosis [...] discharged on 11/25 from inpatient rehab at [facility] with above plan and therapeutic INRs. Follow up in 2 weeks. Please call patient's son Jose David at [phone] with results. Spoke to Jose David and discussed above. Spoke with KORTNEY Albert ([phone]) and given above instructions. Patient may get home testing for INRs set-up, will inform clinic if home testing begins. Home Health Order: Draw PT/INR on 12-14-21 Seen by Justin Nicolas PharmD [employer] Other 09-14-2022 Discharge summary Author Alcides Moya [facility] November 25, 2021 12:57pmNote Date/TimeSeptember 2021 8:50[place] [id number] Discharge Summary Signed Patient: Alton Barker MR#: [id number] : 1940 Acct:[id number] Age/Sex: 81 / F Adm Date: 2 Loc: Room: 5V1048-[address]: Alcides Moya MD Copies to: [...] Plan Discharge Plan Patient Disposition: Home Health [facility] Activity: Ambulate as Tolerated Diet: Regular Additional [...] PT/INR (dx:Z79.01) on Tuesday11/30/21, with results to [facility], who will continue to manage your Coumadin dosing, as they were prior to your hospitalization. -Coumadin dosing: Take 2mg every day EXCEPT Tuesday and . Take 1mg on Tuesday and . Your Home Health agency is [facility] ( ). They will usually contact you the day after discharge to schedule a day/time to meet with you at your home to establish care. You have been given prescriptions for new and/or needed medications. These prescriptions are fora one-time fill only, with no re-fills. For [...] remember to wear a mask to all appointments.If you develop any symptoms (cough, fever/chills, shortness [...] signed by Alcides Moya MD> 11/25/21 125[address] [facility] Work Phone: 1(828) 770-567109-12-2022 Progress note Author Alcides Moya [facility] November 23, 2021 3:01pmNote Date/TimeSeptember 2021 1:36[place] [address] Physiatry(Rehab) Progress Note Signed Patient: Alton Barker MR#: [id number] : 1940 Acct:[id number] Age/Sex: 81 / F Adm Date: 2 Loc: Room: [address] [place] [address] Type: ADM IN Attending Dr: Alcides Moya MD Copies to: ~ <Elham Mendoza APRN - Last Filed: 11/23/21 14:05> Date of Service: 11/23/2021 Subjective <Elham Mendoza APRN - Last Filed: 11/23/21 14:05> Subjective Narrative: Ms. Barker is a 81 year old female With history of Parkinson's disease, followed at the [facility], admitted to the rehabilitation unit with multifactorialfunctional [...] middle of the night with back pain. 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 I reminded that she can take her [...] reviewed and no additional complaints, except asdocumented, Reportsabnormal gait and Reports back pain Integumentary/Breasts Skin/Breast: [...] Affect: normal affect Endurance fair Objective <Elham MendozaHEIDI - Last Filed: 11/23/21 14:05> Labs CBC [...] mg 11/11/21 14:29 Bisacodyl 10 Mg Supp.Rect IL 11/11/22 14:28 DAILY PRN Constipation Carbidopa/Levodopa 1.5 [...] 14:29 Docusate Enema 283 Mg/5 Ml Enema IL 11/11/22 14:28 DAILY PRN Constipation Lactulose 30 [...] 11/12/21 07:30 11/23/21 06:47 Omeprazole 20 Mg Capsule.Dr PO 11/12/22 07:29 [...] Allied health note review, nursing note review, inside solar sales consultant note review,discussion with nursing and case management, and more than 50% of my time was spent on counseling and coordination of care, time spent 18 minutes Patient was personally seen by me, Dr. Moya, on the day of encounter, reviewed the history and therelevant portions of the chart, including current orders, allied health and inside solar sales consultant notes, labs/imaging and performed day elements [...] signed by Alcides Moya MD> 11/23/21 15[address] [facility] Work Phone: 1(997) 576-224909-12-2022 Progress note Author Alcides Moya [facility] November 23, 2021 2:39pmNote Date/TimeSeptember 2021 1:19pm[place] [address] Physiatry(Rehab) Progress Note Signed Patient: Alton Barker MR#: [id number] : 1940 Acct:[id number] Age/Sex: 81 / F Adm Date: 2 Loc: Room: 9Y1126-3 Type: ADM IN Attending Dr: Alcides Moya MD Copies to: ~ <Elham Mendoza APRN - Last Filed: 11/20/21 13:21> Date of Service: 11/20/2021 Subjective <Elham Mendoza APRN - Last Filed: 11/20/21 13:21> Subjective Narrative: Ms. Barker is a 81 year old female With history of Parkinson's disease, followed at the [facility], admitted to the rehabilitation unit with multifactorialfunctional [...] reviewed and no additional complaints, except asdocumented, Reportsabnormal gait and Reports back pain Integumentary/Breasts Skin/Breast: [...] mg 11/11/21 14:29 Bisacodyl 10 Mg Supp.Rect IL 11/11/22 14:28 DAILY PRN Constipation Carbidopa/Levodopa 1.5 [...] 14:29 Docusate Enema 283 Mg/5 Ml Enema IL 11/11/22 14:28 DAILY PRN Constipation Lactulose 30 [...] 07:30 11/20/21 06:37 Omeprazole [address] CAMACHO 11/12/22 07:29 20 mg DAILY.AC.BKFAST KAYLIN Administration [...] PO 11/20/21 17:01 ONCE ONE Assessment/Plan <Elham RosalesHEIDI jones - Last Filed: 11/20/21 13:21> Assessment/Plan (1) [...] Leg swelling appears to have improved with inc rease in activity. * No further episodes of dizziness/lightheadedness * Doing well overall. No significant complaints. * Progresses towards functional baseline. Ambulates household and community distances with a walkercontact-guard to standby assist. * FI with family [...] Allied health note review, nursing note review, inside solar sales consultant note review,discussion with nursing and case management, and more than 50% of my time was spent on counseling and coordination of care, time spent 16 minutes Patient was personally seen by me, Dr. Moya, on the day of encounter, reviewed the history and therelevant portions of the chart, including current orders, allied health and inside solar sales consultant notes, labs/imaging and performed day elements of exam and I formulated the plan of care and facilitated the medical decision making and confirmed the nurse practitioner note, as above Documented By: Elham Mendoza APRN 11/20/21 1 310 Signed By: <Electronically signed by HEIDI Mendoza> 11/20/21 1321 <Electronically signed by Alcides Moya MD> 11/23/21 1439 [facility] Work Phone: 1(901) 394-761609-08-2022 Progress note Author Rosa Maria Odell [facility] November 19, 2021 5:37pmNote Date/TimeSept2021 4:57pmCu[place] [address] Hospitalist Progress Note Signed Patient: Alton Barker MR#: [id number] : 1940 Acct:[id number] Age/Sex: 81 / F Adm Date: 2 Loc: Room: 1P5634-3 Type: ADM IN Attending Dr: Alcides Moya [...] mg 11/11/21 14:29 Bisacodyl 10 Mg Supp.Rect IL 11/11/22 14:28 DAILY PRN Constipation Carbidopa/Levodopa 1.5 [...] 14:29 Docusate Enema 283 Mg/5 Ml Enema IL 11/11/22 14:28 DAILY PRN Constipation Lactulose 30 [...] by Rosa Maria Odell MD> 11/19/21 1737 [facility] Work Phone: 1(361) 508-696409-07-2022 Progress note Author Alcides Moya [facility] November 18, 2021 12:40pmNote Date/TimeSept2021 10:56am[place] [address] Physiatry(Rehab) Progress Note Signed Patient: Alton Barker MR#: [id number] : 1940 Acct:[id number] Age/Sex: 81 / F Adm Date: 2 Loc: Room: 1D3711-9 Type: ADM IN Attending Dr: Alcides Moya MD Copies to: ~ <Fabian Lam DO, RES - Last Filed: 11/17/21 11:49> Date of Service: 11/17/2021 Subjective <Fabian Lam DO, RES - Last Filed: 11/17/21 11:49> Subjective Narrative: Patient does not have any acute concerns. Seems to be tolerating therapy well. She does continue tohave intermittent mid-to-low back pain, at times is [...] reviewed and no additional complaints, except asdocumented, Reportsabnormal gait and Reports back pain Integumentary/Breasts Skin/Breast: [...] mg 11/11/21 14:29 Bisacodyl 10 Mg Supp.Rect IL 11/11/22 14:28 DAILY PRN Constipation Carbidopa/Levodopa 1.5 [...] 14:29 Docusate Enema 283 Mg/5 Ml Enema IL 11/11/22 14:28 DAILY PRN Constipation Lactulose 30 [...] Leg swelling appears to have improved with in crease in activity. Hospitalist to assist with management [...] Allied health note review, nursing note review, inside solar sales consultant note review,discussion with nursing and case management, and more than 50% of my time was spent on counseling and coordination of care, time spent 23 minutes Patient was personally seen by me, Dr. Moya, on the day of encounter, reviewed the history and therelevant portions of the chart, including current orders, allied health and inside solar sales consultant notes, labs/imaging and performed day elements of exam and I formulated the plan of care and facilitated the medical decision making and confirmed the nurse practitioner note, as above Reviewed at team meeting. Making good functional progress. Family would like her to remain admittedthrough next week. They will be present for family instruction session before discharge. Plan is for home. Labs for tomorrow. Documented By: Fabian Lam DO, RES 2 1049 Signed By: <Electronically signed by DO KARLA Lam> 11/17/21 1149 <Electronically signed by Alcides Moya MD> 11/18/21 1240 [facility] Work Phone: 1(280) 990-645009-03-2022 Progress note Author Alcides Moya [facility] November 14, 2021 8:45amNote Date/TimeSept2021 3:25pm[place] [address] Physiatry(Rehab) Progress Note Signed Patient: Alton Barker MR#: [id number] : 1940 Acct:[id number] Age/Sex: 81 / F Adm Date: 2 Loc: Room: 0R3923-1 Type: ADM IN Attending Dr: Alcides Moya MD Copies to: ~ Date of Service: 11/13/2021 Subjective Subjective Narrative: Ms. Barker is a 81 year old female With history of Parkinson's disease, followed at the [facility], admitted to the rehabilitation unit with multifactorialfunctional [...] reviewed and no additional complaints, except asdocumented, Reportsabnormal gait and Reports back pain Integumentary/Breasts Skin/Breast: [...] mg 11/11/21 14:29 Bisacodyl 10 Mg Supp.Rect IL 11/11/22 14:28 DAILY PRN Constipation Carbidopa/Levodopa 1.5 [...] 14:29 Docusate Enema 283 Mg/5 Ml Enema IL 11/11/22 14:28 DAILY PRN Constipation Lactulose 30 [...] Acute (10) Chronic anticoagulation: Code(s): Z79.01 - FDC (current) use of anticoagulants Status: Acute (11) Urinary tract infection: Code(s): N39.0 - Urinary tract infection, site not specified Status: Acute (12) Back pain: Code(s): M54.9 - Dorsalgia, unspecified Status: Acute Plan 81-year-old female with history of Parkinson's disease, follows at the [facility], admitted tot rehabilitation unit with functional decline secondary toParkinson's [...] and self-care. Discharge planning:Insurance denial overturned via [id number]. 2 weeks approved. Plan for discharge home November 25 Plan: I completed a substantive portion of this encounter, the medical decision makingportion of this note in its entirety, including Allied health note review, nursing note review, inside solar sales consultant note review,discussion with nursing and case management, and more than 50% of my time was spent on counseling and coordination of care, time spent 26minutes Patient was personally seen by me, Dr. Moya, on the day of encounter, reviewed the history and therelevant portions of the chart, including current orders, allied health and inside solar sales consultant notes, labs/imaging and performed day elements of exam and I formulated the plan of care and facilitated the medical decision making and confirmed the nurse practitioner note, as above Documented By: Alcides Moya MD 11/13/21 1525 Signed By: <Electronically signed by Alcides Moya MD> 11/14/21 0845 [facility] Work Phone: [phone]) 227-592309-01-2022 Consult note Author Justice De Oliveira [facility] November 12, 2021 5:09pmNote Date/TimeSept2021 3:21[place] [address] Hospitalist Consult Note Signed Patient: Alton Barker MR#: [id number] : 1940 Acct:[id number] Age/Sex: 81 / F Adm Date: 2 Loc: Room: 0M1275-0 Type: ADM IN Attending Dr: Alcides Moya [...] pain. Had experienced a fall October 20 andwas seen in the emergency department at that time with no evidence of abnormality on imaging. Patient was discharged home and has had persistent decline and decreased appetite/weight, uncontrolled pain, depression, leg weakness, incontinence. Patient with underlying Parkinson's follows with [facility] neurology and movement disorder clinicians there. In the emergency department this visit, plan was made for admission for further evaluation. MRI of lumbar spine showed L1 compression deformity with corresponding marrow edema extending into the adjacent paraspinous musculature, L4-5 circumferential disc bulge with facet hypertrophy, mild spinal canal stenosis with moderate to severe leftand mild right neuroforaminal narrowing with mass-effect on exiting left L4 nerve roots. She was evaluated by neurosurgery with conservative management recommended. She was also found with E. coli UTI initiated on ceftriaxone changed to cefdinir for total 7-day course planned. [facility] and initiated [...] negative unless noted below or in HPI [facility] Attestation Statement: The following information was [...] mg-vit E 90 mg-zinc 40 mg-copper 1 wc-erlkdm-emxgnf capsule (PreserVision AREDS-2) 1 tab PO BID [...] mg 11/11/21 14:29 Bisacodyl 10 Mg Supp.Rect IL 11/11/22 14:28 DAILY PRN Constipation Carbidopa/Levodopa 1.5 [...] 14:29 Docusate Enema 283 Mg/5 Ml Enema IL 11/11/22 14:28 DAILY PRN Constipation Lactulose 30 [...] Sodium 139, Potassium 3.9, Chloride 100, Carbon Oguwdkn54.0 H, Anion Gap 11.9, BUN 8 L, [...] Neut % (Auto) 45.9, Lymph % (Auto) 39.7,[place] % (Auto) 10.1, Eos % (Auto) 3.8, Baso % (Auto) 0.5, Neut # (Auto) 2.3, Lymph # (Auto) 2.0, [place] # (Auto) 0.5, Eos # (Auto) 0.2, [...] by Justice De Oliveira DO> 11/12/21 1709 [facility] Work Phone: 1(370) 399-188308-31-2022 History and physical note Author Alcides Moya [facility] November 11, 2021 6:55pmNote Date/TimeAugust 2021 1:26pm[place] [address] Physiatry (Rehab) H&P Signed Patient: Alton Barker MR#: [id number] : 1940 Acct:[id number] Age/Sex: 81 / F Adm Date: 2 Loc: Room: 1V8231-8 Type: ADM IN Attending Dr: Alcides Moya MD Copies to: MD Honey Pate DO~ Date of Service: 11/11/2021 HPI The patient was seen and examined on: 11/11/21 Etiologic Diagnosis/Impairment Group: 08.9 History of Present Illness: Ms. Barker is a 81 year old female With history of Parkinson's disease, followed at the [facility], admitted to the rehabilitation unit with multifactorialfunctional [...] Lives at home with her son and vkjenimt-tc-xlf. Chronic conditions are otherwise stable with current [...] reviewed and no additional complaints, except asdocumented, Reportsabnormal gait and Reports back pain Integumentary/Breasts Skin/Breast: [...] mg-vit E 90 mg-zinc 40 mg-copper 1 us-njnttf-zigcrt capsule (PreserVision AREDS-2) 1 tab PO BID [...] and obtained and summated medical records and haveordered follow up lab tests and imaging studies as needed for rehabilitation care. Individualized Plan of Care Individualized Plan of Care Plan of Care: Individualized Overall Plan of Care: Admit Date/Time: November 10, 2021 Expected LOS: 14 days Expected Discharge Destination: Home Rehabilitation [facility]: 08.9 Primary Diagnosis: L1 compression [...] improve pt's strength, endurance, bed mobility, transfers (sit- stand), standing balance, gait quality on level surfaces [...] and functional mobility and to evaluate for adaptiveand assistive devices. Will work to improve pt's endurance and educate pt on fall prevention and energy conservation techniques-pacing strategies and proper breathing techniques during functional tasks. Other: Nutrition, Rehab nursing, Wound, P&O RATIONALE FOR IRF ADMISSION: Patient has both medical and functional complexities that require 24 hour daily monitoring and intervention from Clinical Research Assistant as well as other consulting physicians including internal medicine as well as 24 hour daily batterboard setter nursing - for medical safe / optimal manageme nt. Patient requires interdisciplinary therapy team rehabilitation care including OT, PT, SW, Psychology, Rehab Nursing, requires and can tolerate at least 3 hours of daily OT and PT therapy at least5 days weekly. The following medical conditions significantly impact the rehabilitation process andare being addressed daily and can not be [...] Acute (10) Chronic anticoagulation: Code(s): Z79.01 - termite technician (current) use of anticoagulants Status: Acute (11) Urinary tract infection: Code(s): N39.0 - Urinary tract infection, site not specified Status: Acute (12) Back pain: Code(s): M54.9 - Dorsalgia, unspecified Status: Acute Plan 81-year-old female with history of Parkinson's disease, follows at the [facility], admitted to the rehabilitation unit with functional [...] and self-care. Discharge planning:Insurance denial overturned via [id number]. Plan for discharge home in 1 to 2 weeks. Plan: I completed a substantive portion of this encounter, the medical decision making portion of this note in its entirety, including Allied health note review, nursing note review, inside solar sales consultant note review, discussion with nursing and case management, and more than 50% of my time was spent on counseling and coordination of care, time spent 65 minutes Patient was personally seen by me, Dr. Moya, on the day of encounter, reviewed the history and therelevant portions of the chart, including current orders, allied health and inside solar sales consultant notes, labs/imaging and performed day elements of exam and I formulated the plan of care and facilitated the medical decision making and confirmed the nurse practitioner note, as above Documented By: Alcides Moya MD 11/11/211853 Signed By: <Electronically signed by Alcides Moya MD> 11/11/211854 [facility] Work Phone: 1(338) 144-786308-25-2022 Miscellaneous Notes* Telephone Encounter - Gloria Perez APRN.CNP - 11/05/2021 1:45 PM EDT This has been noted. lGoria Perez APRN-ELDON * Telephone Encounter - Chiqui [...] to in-health rehab. Currently she is at [facility] in [place] - Room 3009 Bed. 2. * Telephone [...] know. Thank you, Gloria documented in this encounterMary[facility]08-[facility]-2022 History and physical note Author Enrrique Mota [facility] November 04, 2021 8:55pmNote Date/TimeAugust 2021 6:26pm[place] [address] Hospitalist H&P Signed Patient: Alton Barker MR#: [id number] : 1940 Acct:[id number] Age/Sex: 81 / F Adm Date: 2 Loc: Room: [address] [place] [address] Type: ADM IN Attending Dr: Enrrique Mota MD Copies to: MD Honey Kearns,DO~ HPI DATE OF EXAMINATION: 11/04/21 HISTORY OF PRESENT ILLNESS: Patient is an 81-year-old female, who was brought today to the emergency department for a number ofcomplaints. She has been declining over the last fewweeks. Her appetite has been decreased, she lost about 5 pounds. Her smell hasbeen gone for long time due to Parkinson's disease. Most recently shehad a loss of taste. She feels depressed, with no energy. In May her lost her longtime partner. She sustained a couple of falls, with trauma to the lower extremities and back, but she did not believe it was too severe. However, some degree of urinary and stool incontinence that she had even priorto that got worse. Her legs are bilaterally [...] Continue with pain medications, scheduled acetaminophen and asneeded oxycodone. PT OT #2 major depression. I [...] mg-vit E 90 mg-zinc 40 mg-copper 1 ma-asvqmw-mqutjq capsule (PreserVision AREDS-2) 1 tab PO BID [...] % (Auto) 20.3 % (.) 11/04/21 16:40 Hansford % (Auto) 9.7 % (.) 11/04/21 16:40 Eos % (Auto) 1.7 % (.) 11/04/21 16:40 Baso % (Auto) 0.6 % (.) 11/04/21 16:40 Neut # (Auto) 5.3 x10E3/uL (1.8-7.7) 11/04/21 16:40 Lymph # (Auto) 1.6 x10E3/uL (1.00-4.8) 11/04/21 16:40 [place] # (Auto) 0.8 x10E3/uL (0.0-0.8) 11/04/21 16:40 [...] <Electronically signed by Enrrique Mota MD> 11/04/212054 [facility] Work Phone: 1(994) 205-110308-11-2022 Evaluation note* Encounter Date Diagnosis Assessment Notes [...] 2 weeks. Seen by Justin Nicolas PharmD [employer] Other 07-21-2022 Instructions* Patient Instructions* Gloria Perez [...] or you can send a message through [employer]. You can also now schedule and select appointments through [employer]. Gloria Perez APRN.ELDON documented in this encounterMarymount Hospital07-21-2022 History of Present illness Narrative* Gloria Perez APRN.CNP - 10/01/2021 12:13 PM EDT [facility] - FOLLOW UP EVALUATION Honey Rabago, DO, DO [address] [place] [address] [facility] [address] I had the pleasure of seeing Ms. [...] is now living with her son and qgijovpt-xs-xej. She has not been taking her medication [...] 1.5 1.5 Effexor Level of service : 80537 (40-54 min). Time spent 49 (12:14pm-1:03pm) min on the day of service, which included preparing to see the patient, epxp-zd-kcsr patient care, completing clinical documentation, obtaining and/or reviewing separately obtained history, performing a medically appropriate examination, counseling and educating the patient/family/caregiver and ordering medications, tests, or procedures. Gloria Perez APRN.ELDON documented in this encounterMarymount Hospital07-19-2022 Evaluation note* Encounter Date Diagnosis Assessment [...] plan. Son and daughter in law have takenover medications and have been giving patient 3mg daily. Patient will continue 2mg daily as indicated above. See calendar. Follow up in 3 weeks. Seen by Juliana Ozuna RN [employer] Other 06-28-2022 NoteHISTORY: Bone density screening. COMPARISON: [...] and signed by Delgado Moya on 09/08/[address] [place], [place] 1573406-15-2022 Evaluation note* Encounter Date Diagnosis Assessment Notes [...] significant other. Seen by Juliana Ozuna RN [facility] [employer] Other 05-25-2022 Evaluation note* Encounter Date Diagnosis [...] significant other. Seen by Yeni Shaw LPN July,ther- INSTRUCTIONS: Please take as instructed above. Notify [facility] Antico[facility] [phone] option 5 for the following: -Call immediately [...] person tells you to adjust your warfarin. [employer] Other 05-09-2022 Evaluation note* Encounter Date Diagnosis [...] significant other. Seen by Justin Nicolas PharmD [employer] Other 03-30-2022 Evaluation note* Encounter Date Diagnosis Assessment Notes Treatment Notes Treatment Clinical Notes May, Medication monitoring encounter (ICD-10 - Z51.81) Referring Provider: Honey Rabago Diagnosis: DVT INR Goal: 2-3 INR: 5.2 Tablet Size: 2mg Darwin: 2mg Tuesday: 2mg Tuesday: 2mg Tuesday: 3mg [...] family. Calendar provided. Seen by Anu Alva [facility]/Anuradha Case LPN [facility] [employer] Other 03-15-2022 Evaluation note* Encounter Date Diagnosis [...] she voiced understanding. Seen by Anu Alva [facility] [employer] Other 01-12-2022 Evaluation note* Encounter Date Diagnosis [...] 3 weeks. Seen by Justin Nicolas PharmD [employer] Other 12-15-2021 Evaluation note* Encounter Date Diagnosis [...] 4 weeks. Seen by Juliana Ozuna RN [employer] Other 11-17-2021 Evaluation note* Encounter Date Diagnosis [...] 4 weeks. Seen by Juliana Ozuna RN [employer] Other 09-29-2021 Evaluation note* Encounter Date Diagnosis [...] 4 weeks. Seen by Justin Nicolas PharmD [employer] Other Consult note Author Jairo Benson [facility] November 05, 2021 3:10pmNote Date/TimeAugust 2021 3:10pm[place] [address] Psychiatry Consult Note Signed Patient: Alton Barker MR#: [id number] : 1940 Acct:[id number] Age/Sex: 81 / F Adm Date: 2 Loc: Room: [address] [place] [address] Type : ADM INOo Attending Dr: Enrrique [...] managed by a treatment team and is takingEffexor at this time. She denied any illicit [...] mg-vit E 90 mg-zinc 40 mg-copper 1 wp-kggpiu-lpwqad capsule (PreserVision AREDS-2) 1 tab PO BID [...] Cloudy A Urine pH 5.5 Ur Specific [place] 1.029 Urine Protein 30 H Urine Glucose [...] Acute Documented By: Jairo Benson MD 11/05/21 150 Signed By: <Electronically signed by Jairo Benson MD> 11/05/21 1510 [facility] Work Phone: Consult note Author Oswaldo Almonte [facility] November 06, 2021 11:33amNote Date/TimeAugust 2021 11:33[place] [address] Neurosurgery Consult Note Signed Patient: Alton Barekr MR#: [id number] : 1940 Acct:[id number] Age/Sex: 81 / F Adm Date: 2 Loc: Room: [address] [place] [address] Type: ADM INOo Attending Dr: Enrrique Mota [...] She also reports that she has had bas willie urinary and stool incontinence but that this [...] mg-vit E 90 mg-zinc 40 mg-copper 1 rk-wdutct-lnoujo capsule (PreserVision AREDS-2) 1 tab PO BID [...] Cloudy A, Urine pH 5.5, Ur Specific [place] 1.029, Urine Protein 30 H, Urine Glucose [...] Neut % (Auto) 67.7, Lymph % (Auto) 20.3,Hansford % (Auto) 9.7, Eos % (Auto) 1.7, Baso % (Auto) 0.6, Neut # (Auto) 5.3, Lymph # (Auto) 1.6, Hansford# (Auto) 0.8, Eos # (Auto) 0.1, Baso [...] recent declining health. Neurosurgery wasconsulted due to hercompression fracture of L1 as well as mild [...] fracture inferior endplate. There is also a L4- 5 left-sided disc herniation. The patient has no symptoms with regard to either of these she has no percussible tenderness of the spine she has no left radicular leg pain. Iwould recommend no acute treatment. The big concern for this patient is frequent falls I think thatneeds to be addressed. If she is safe at home etc. Code(s): Z74.09 - Other reduced mobility; Z78.9 - Other specified health status Status: Acute (2) Parkinsons disease: Code(s): G20 - Parkinson's disease Status: Acute (3) Frequent falls: Code(s): R29.6 - Repeated falls Status: Acute Documented By: Oswaldo Almonte MD 11/05/21 2221 Signed By: <Electronically signed by MD Oswaldo Almonte> 11/06/21 1136 [facility] Work Phone: Discharge summary Author Gaye Claire [facility] November 11, 2021 5:21pmNote Date/TimeAugust 2021 11:[address] [address] Discharge Summary Signed Patient: Alton Barker MR#: [id number] : 1940 Acct:[id number] Age/Sex: 81 / F Adm Date: 2 Loc: Room: [address] [place] [address]: Gaye Claire MD Copies to: [...] no evidence of abnormality at that time withreports of back pain. Since that time patient hasbeen declining with decreased appetite and weight,uncontrolled pain, depression, leg weakness, incontinence. MRI of the lumbar spine showed an L1 compression deformity with corresponding marrow edema extending into the adjacent paraspinous musculature, L4-5 circumferential disc bulge with facet hypertrophy, mild spinal canal stenosis with moderateto severe left and mild right neuroforaminal narrowing with mass-effect on exiting left L4 nerve roots. She was evaluated by neurosurgery with conservative management recommended. Shewas seen by therapy services with recommendation for further rehab, plan to discharge disposition to inpatient rehabunit. Patient does have chronic Parkinson's disease and follows with neurology Dr. Lal and movement disorderspecialist Gloria Lal nurse practitioner at [facility] routinely. She was continued on her routine [...] Discharge Plan Discharge Plan Patient Disposition: Rehab [facility] Activity: No Activity Restriction Diet: Regular Additional [...] signed by Gaye Claire MD> 11/11/21 1721 [facility] Work Phone: Evaluation noteNo assessment information available [facility] noteNo InformationNort [employer] Other Evaluation note* Diagnosis Recurrent episodes of unresponsiveness- Primary Parkinson's disease (HCC) Paralysis agitans Depression with anxiety Dysthymic disorder Fatigue, unspecified type Excessive daytime sleepiness documented [facility] encounter [facility]* Diagnosis Onset Date Resolution Status Back pain acuteChronic anticoagulationacuteCompression fractureacuteDepressionacute Frequent fallsacuteImpaired mobility and ADLsacuteParkinsons diseaseacuteUrinary tract infectionacuteBack painacuteChronic anticoagulationacuteCompression fractureacuteDepressionacuteDiabetesacuteGERD (gastroesophageal reflux disease) acuteHyperlipidemiaacuteHypertensionacuteHypothyroidacuteImpaired mobility and ADLsacuteParkinsons diseaseacuteUrinary tract infectionacute [facility] Work Phone: Evaluation note* Diagnosis Onset Date Resolution Status Back pain acuteChronic anticoagulationacuteCompression fractureacuteDepressionacute Frequent fallsacuteImpaired mobility and ADLsacuteParkinsons diseaseacuteUrinary tract infectionacuteAnemiaacuteBack painacuteChronic anticoagulationacute Compression fractureacuteDepressionacuteDiabetesacuteGERD (gastroesophageal reflux disease)acuteHyperlipidemiaacuteHypertensionacuteHypothyroidacuteImpaired mobility and ADLsacuteParkinsons diseaseacuteUrinary tract infectionacute [facility] Work Phone: Evaluation note* Diagnosis Parkinson's disease (HCC) Paralysis agitans documented [facility]* Diagnosis Parkinson's disease (HCC)- Primary Paralysis agitans Depression with anxiety Dysthymic disorder [facility]* Diagnosis Parkinson's disease without dyskinesia, with fluctuating manifestations- Primary Depression with anxiety Dysthymic disorder [facility] Parkinson's disease Paralysis agitans [facility]* Diagnosis Depression with anxiety- Primary Dysthymic disorder Parkinson's disease without dyskinesia, with fluctuating manifestations (HCC) Sialorrhea Disturbance of salivary secretion [facility]* Diagnosis Injury of head, initial encounter- Primary Parkinson's disease without dyskinesia, with fluctuating manifestations (HCC) Depression with anxiety Dysthymic disorder [facility]* Diagnosis Onychomycosis- Primary Dermatophytosis of nail Pain in both feet Type II diabetes mellitus with neurological manifestations (CMS/HCC) Type II or unspecified type diabetes mellitus with neurological manifestations, not stated as uncontrolled Neuropathy Mononeuritis of unspecified site documented [facility] encounter [facility]* Diagnosis Morbid obesity (CMS/HCC)- Primary Morbid obesity Type 2 diabetes mellitus with other specified complication, without long-term current use of insulin (CMS/HCC) Parkinson's disease without dyskinesia or fluctuating manifestations (CMS/HCC) Frequent falls Acquired hypothyroidism (CMS/HCC) Unspecified hypothyroidism Type 2 diabetes mellitus with hyperglycemia (CMS/HCC) Immunodeficiency due to conditions classified elsewhere ([facility]) documented in this encounter 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 Vaginal yeast infection Candidiasis of vulva and vagina Vitamin D deficiency Vitamin B12 deficiency Other B-complex deficiencies Need for vaccination with 20-polyvalent pneumococcal conjugate vaccine documented in this encounter [facility] note* Diagnosis Vaginal yeast infection Candidiasis of vulva and vagina documented in this encounter [facility] note* Diagnosis Onychomycosis- Primary Dermatophytosis of [...] neuropathy associated with type 2 diabetes mellitus ([facility]) documented in this encounter [facility]* Diagnosis GERMANIA (obstructive sleep apnea)- Primary Obstructive sleep apnea (adult) (pediatric) Inadequate sleep hygiene Other specific disorder of sleep of nonorganic origin Hypersomnia Hypersomnia, unspecified Snoring Other dyspnea and respiratory abnormality Anxiety Anxiety state, unspecified Depression, unspecified depression type ([facility]) Memory loss documented in this encounter [facility]* Diagnosis Depression with anxiety- Primary Dysthymic disorder Parkinson's disease without dyskinesia, with fluctuating manifestations ([facility]) [facility]* Diagnosis Type II diabetes mellitus with neurological manifestations ([facility])- Primary Type II or unspecified type diabetes mellitus with neurological manifestations, not stated as uncontrolled Neuropathy Mononeuritis of unspecified site Hammer toes of both feet Onychomycosis Dermatophytosis of nail Pain in both feet Tinea pedis of both feet documented in this encounter [facility] Healthcare[facility] note* Diagnosis Other seborrheic dermatitis- Primary Lentigines Seborrheic keratosis Capillary angioma Nevus, non-neoplastic [facility] - Reported* Type Description Date Medical History diabetes mellitus Medical Historycoronary artery diseaseMedical HistoryHypothyroidismMedical HistoryEsophageal refluxMedical HistorydepressionMedical Historyessential tremor Surgical HistorytonsillectomySurgical HistorycholecystectomySurgical History appendectomySurgical HistoryhemorrhoidectomySurgical HistorycolonoscopySurgical Historyheart catheterizationHospitalization Historysee above [employer] Other History general Narrative - [facility]ortedN[facility]lect [facility] [employer] Other Progress note Author Enrrique Mota [facility] November 06, 2021 7:31amNote Date/TimeAugust 2021 3:01pm[place] [address] Hospitalist Progress Note Signed Patient: Alton Barker MR#: [id number] : 1940 Acct:[id number] Age/Sex: 81 / F Adm Date: 2 Loc: 3T Room: [address] [place] [address] Type: ADM INOo Attending Dr: Enrrique Mota MD Copies to: ~ Date of Service: 11/05/2021 Subjective Subjective Narrative: Patient seen and examined, sitting up in chair at time of exam. She is pleasant, mildly confused. She is oriented to self, knows she is at [facility]. Initially states year is 1920, then [...] somewhat complicated. She states thatshe does have cash ateral lower extremity numbness at times, reports presently [...] mobility and back pain since fall. Previously ambulatedwith cane, now using walker with difficulty. Endorsing lower extremity numbness, bilateral at times, though mostly LLE. - MRI lumbar spine showing L1 compression deformity with corresponding marrow edema with edema extending into the adjacent paraspinous musculature, L4-5 circumferential disc bulge with facet hypertrophy, mild spinal canal stenosis with moderate to severe left and mild right neuroforaminal narrowingwith mass- effect on the exiting left L4 nerve roots. -Consult to neurosurgery. Appreciate neurosurgery recommendations -Supportive care, analgesics -PT/OT eval's. Family is hopeful that the patient will be able to get further rehab on the acute inpatient rehab unit to facilitate eventual safe discharge home where she lives with her son and pmowjufe-zj-bvb Impaired mobility and ADLs Parkinson's disease ? Patient follows with neurology, Dr. Lal, and movement disorder specialist,Gloria Lal, DYNAMICS AX DEVELOPER,at [facility] ? Continue Sinemet ? PT/OT eval's Acute urinary tract infection ? Urine culture showing greater than 100 K GNB ? Continue ceftriaxone, follow culture Depression ?Daughter and son-in-law expressed concern regarding worsening depression. Reports depression has been a lifelong gregorio ; however, they are concerned that this has progressed of late. State patientdemonstrating decreased interestand has not been eating well. ?Psychiatry consulted. Appreciate psychiatric recommendations. Chronic conditions 1. Hypothyroidism?levothyroxine 2. GERD?omeprazole 3. T2DM?metformin 4. DVT?Coumadin, pharmacy to dose 5. Dyslipidemia?atorvastatin 6. Hypertension?metoprolol Documented By: KAYODE Lockwood 11/05/21 1 340 Signed By: <Electronically signed by KAYODE Barr> 11/05/21 1507 <Electronically signed by Enrrique Mota MD> 11/06/21 0731 [facility] Work Phone: Progress note Author Enrrique Mota [facility] November 07, 2021 4:52pmNote Date/TimeAugust 2021 11:01[place] [address] Hospitalist Progress Note Signed Patient: Alton Barker MR#: [id number] : 1940 Acct:[id number] Age/Sex: 81 / F Adm Date: 2 Loc: Room: [address] [place] [address] Type: ADM INOo Attending Dr: Enrrique Mota MD Copies to: ~ Date of Service: 11/06/2021 Subjective Subjective Narrative: Patient is seen and examined. She is sitting up in bed at time of exam. When asked how she is feeling, she states not well, I am confused . She has howeveroriented to self, knows she is at [facility], and was able to tell me events surrounding her admission. She showed me a paper with long-term facilities listed on it, and indicated that [...] mobility and back pain since fall. Previously ambulatedwith cane, now using walker with difficulty. Endorsing lower extremity numbness, bilateral at times, though mostly LLE. - MRI lumbar spine showing L1 compression deformity with corresponding marrow edema with edema extending into the adjacent paraspinous musculature, L4-5 circumferential disc bulge with facet hypertrophy, mild spinal canal stenosis with moderate to severe left and mild right neuroforaminal narrowingwith mass- effect on the exiting left L4 nerve roots. -Consult to neurosurgery. Appreciate neurosurgery recommendations -Supportive care, analgesics -PT/OT recommending further rehab. Family is hopeful that the patient will be able to get further rehab on the acute inpatient rehab unit to facilitate eventual safe discharge home where she lives with her son and jbfvcaex-ji-fap Impaired mobility and ADLs Parkinson's disease ? Patient follows with neurology, Dr. Lal, and movement disorder specialist,Gloria Lal, DYNAMICS AX DEVELOPER,at [facility] ? Continue Sinemet ? PT/OT recommending further rehab Acute urinary tract infection ? Urine culture showing greater than 100 K GNB ? Continue ceftriaxone, follow culture Depression ?Daughter and son-in-law expressed concern regarding worsening depression. Reports depression has been a lifelong gregorio ; however, they are concerned that this has progressed of late. State patientdemonstrating decreased interestand has not been eating well. ?Psychiatry evaluated. Initiated on HS Remeron in addition to Effexor Chronic conditions 1. Hypothyroidism?levothyroxine 2. GERD?omeprazole 3. T2DM?metformin 4. DVT?Coumadin, pharmacy to dose 5. Dyslipidemia?atorvastatin 6. Hypertension?metoprolol Son and DIL updated telephonically Documented By: KAYODE Lockwood 11/06/21 1 055 Signed By: <Electronically signed by KAYODE Barr> 11/06/21 1105 <Electronically signed by Enrrique Mota MD> 11/07/21 1652 [facility] Work Phone: Progress note Author Enrrique Mota [facility] November 07, 2021 4:47pmNote Date/TimeAugust 2021 11:18[place] [address] Hospitalist Progress Note Signed Patient: Alton Barker MR#: [id number] : 1940 Acct:[id number] Age/Sex: 81 / F Adm Date: 2 Loc: 3T Room: [address] [place] [address] Type: ADM INOo Attending Dr: Enrrique Mota MD Copies to: ~ Date of Service: 11/07/2021 Subjective Subjective Narrative: Patient is seen and examined. She is sitting up in chair at time of exam. She is much more bright today, cheerful. States she is doing well. Reports she didrequire pain medication this morning due tosignificant back pain. This is onlythe second time [...] 11/06/21 07:30 11/07/21 09:58 Omeprazole 20 Mg Capsule. PO 11/06/22 07:29 [...] mobility and back pain since fall. Previously ambulatedwith cane, now using walker with difficulty. Endorsing lower extremity numbness, bilateral at times, though mostly LLE. - MRI lumbar spine showing L1 compression deformity with corresponding marrow edema with edema extending into the adjacent paraspinous musculature, L4-5 circumferential disc bulge with facet hypertrophy, mild spinal canal stenosis with moderate to severe left and mild right neuroforaminal narrowingwith mass- effect on the exiting left L4 nerve roots. -Evaluated by neurosurgery with recommendations for conservative/nonoperative management. -Supportive care, analgesics -PT/OT recommending further rehab. Family is hopeful that the patient will be able to get further rehab on the acute inpatient rehab unit to facilitate eventual safe discharge home where she lives with her son and yyhnhige-gw-yyr Impaired mobility and ADLs Parkinson's disease ? Patient follows with neurology, Dr. Lal, and movement disorder specialist,Gloria Lal, DYNAMICS AX DEVELOPER,at [facility] ? Continue Sinemet ? PT/OT recommending further rehab Acute urinary tract infection ? Urine culture positive for e coli ? Continue ceftriaxone Depression ?Daughter and son-in-law expressed concern regarding worsening depression. Reports depression has been a lifelong gregorio ; however, they are concerned that this has progressed of late. State patientdemonstrating decreased interestand has not been eating well. [...] signed by Enrrique Mota MD> 11/07/21 1647 [facility] Work Phone: Progress note Author Enrrique Mota [facility] November 08, 2021 5:13pmNote Date/TimeAugust 2021 10:47[place] [address] Hospitalist Progress Note Signed Patient: Alton Barker MR#: [id number] : 1940 Acct:[id number] Age/Sex: 81 / F Adm Date: 2 Loc: Room: [address] [place] [address] Type: ADM INOo Attending Dr: Enrrique Mota MD Copies to: ~ Date of Service: 11/08/2021 Subjective Subjective Narrative: Patient is seen and examined, sitting up in bed at time of exam. Overall doing well. No headache ordizziness. No chest pain, palpitations, shortness of breath. [...] mobility and back pain since fall. Previously ambulatedwith cane, now using walker with difficulty. Endorsing lower extremity numbness, bilateral at times, though mostly LLE. - MRI lumbar spine showing L1 compression deformity with corresponding marrow edema with edema extending into the adjacent paraspinous musculature, L4-5 circumferential disc bulge with facet hypertrophy, mild spinal canal stenosis with moderate to severe left and mild right neuroforaminal narrowingwith mass- effect on the exiting left L4 nerve roots. -Evaluated by neurosurgery with recommendations for conservative/nonoperative management. -Supportive care, analgesics -PT/OT recommending further rehab. Family is hopeful that the patient will be able to get further rehab on the acute inpatient rehab unit to facilitate eventual safe discharge home where she lives with her son and yfdwmmyk-dk-ptx Impaired mobility and ADLs Parkinson's disease ? Patient follows with neurology, Dr. Lal, and movement disorder specialist,Gloria Lal, ELDON,at [facility] ? Continue Sinemet ? PT/OT recommending further rehab Acute urinary tract infection ? Urine culture positive for e coli ? Continue ceftriaxone Depression ?Daughter and son-in-law expressed concern regarding worsening depression. Reports depression has been a lifelong gregorio ; however, they are concerned that this has progressed of late. State patientdemonstrating decreased interestand has not been eating well. [...] <Electronically signed by Enrrique Mota MD> 11/08/21 1712 [facility] Work Phone: Progress note Author Gaye Claire [facility] November 10, 2021 4:37pmNote Date/TimeAugust 2021 1:[place] [address] Hospitalist Progress Note Signed Patient: Alton Barker MR#: [id number] : 1940 Acct:[id number] Age/Sex: 81 / F Adm Date: 2 Loc: Room: [address] [place] [address] Type: ADM INOo Attending Dr: Gaye Claire [...] Lal, and movement disorder specialist, Gloria Lal DYNAMICS AX DEVELOPER at [facility] ?Continue Sinemet UTI Ecoli ?ceftriaxone initiated 11/06, change to Cefdinir at OR for 7 day total course last dose [...] signed by Gaye Claire MD> 11/10/21 1637 [facility] Work Phone: Progress note Author Gaye Claire [facility] November 11, 2021 5:21pmNote Date/TimeAugust 2021 5:36[place] [address] Hospitalist Progress Note Signed Patient: Alton Barker MR#: [id number] : 1940 Acct:[id number] Age/Sex: 81 / F Adm Date: 2 Loc: 5T Room: [address] [place] [address] Type: DIS INOo Attending Dr: Gaye Claire [...] Lal, and movement disorder specialist, Gloria Lal DYNAMICS AX DEVELOPER at [facility] ?Continue Sinemet UTI Ecoli ?ceftriaxone initiated 11/06, change to Cefdinir at OR for 7 day total course last dose [...] signed by Gaye Claire MD> 11/11/21 1721 [facility] Work Phone: Reason for referral (narrative)* Outpatient Procedure (Routine) - Pending ReviewSpecialtyDiagnoses / ProceduresReferred By Contact [facility] Diagnoses Recurrent episodes of unresponsiveness Procedures EPIL EEG ROUTINE ELECTROENCEPHALOGRAM REC COMA/SLEEP ONLY Gloria Perez APRN.CNP [address] [place] [address] Neurological [place] [address] [place] [address] Referral IDStatusReasonStart DateExpiration DateVisits RequestedVisits [id number] Review Auto-Generated Referral / [facility] Summary Purpose Family History Relationship Condition Age at Onset Recorded Date/T denis Not Specified No pertinent family history Unknown Relationship Condition Age at Onset Recorded Date/T denis Not Specified No pertinent family history Unknown fatherDeceasedUnknownmotherDeceasedUnknown Advance Directives Advance Directive Response Recorded Date/ Time Advance Directives No May 23 10:53am Advance Directive Response Recorded Date/ Time Advance Directives No May 23 9:53am Date ActivatedDate InactivatedComments07/29/2023 12:19 PMDate ActivatedDate InactivatedComments07/29/2023 12:19 PM Chief Complaint and Reason for Visit Chief Complaint DVT has needle in neck Chief Complaint slow talking/confuse d fall DVT back pain due to fall L1 compression Fx/Parkinson's diseaseReason for VisitBack pain Chronic anticoagulation Compression fracture Depression Frequent falls Impaired mobility and ADLs Parkinsons disease Urinary tract infection Back pain Chronic anticoagulation Compression fracture Depression Diabetes GERD (gastroesophageal reflux disease) Hyperlipidemia Hypertension Hypothyroid Impaired mobility and ADLs Parkinsons disease Urinary tract infection Chief Complaint slow talking/confuse d fall DVT back pain due to fall L1 compression Fx/Parkinson's diseaseReason for VisitBack pain Chronic anticoagulation Compression fracture Depression Frequent falls Impaired mobility and ADLs Parkinsons disease Urinary tract infection Anemia Back pain Chronic anticoagulation Compression fracture Depression Diabetes GERD (gastroesophageal reflux disease) Hyperlipidemia Hypertension Hypothyroid Impaired mobility and ADLs Parkinsons disease Urinary tract infection Chief Complaint back pain due to fal l L1 compression Fx/Parkinson's disease UTI, change in urine color, odorReason for VisitBack pain Chronic anticoagulation Compression fracture Depression Frequent falls Impaired mobility and ADLs Parkinsons disease Urinary tract infection Anemia Back pain Chronic anticoagulation Compression fracture Depression Diabetes GERD (gastroesophageal reflux disease) Hyperlipidemia Hypertension Hypothyroid Impaired mobility and ADLs Parkinsons disease Urinary tract infection Chief Complaint M81.0 Chief Complaint Admit Date Back pain February 26, 2024 7:04pm fall March 04, 2024 6:41pm Unknown March 16, 2024 8: 45pm Reason for Referral SpecialtyDiagnoses / ProceduresReferred By ContactReferred To Contact Diagnoses Parkinson's disease without dyskinesia, with fluctuating manifestations (HCC) Procedures PROVIDER ORDERED FOLLOW UP OFFICE/OUTPATIENT [facility] 60 MINUTES Gloria Perez, HEIDI.DYNAMICS AX DEVELOPER [address] [place] [id number] Referral IDStatusReasonStart DateExpiration DateVisits RequestedVisits [id number] PCP Requested Referral /[id number] / ProceduresReferred By ContactReferred To ContactCT IMAGING Diagnoses Injury of head, initial encounter Procedures CT BRAIN WO IVCON CT HEAD/BRAIN W/O CONTRAST MATERIAL Gloria Perez, HEIDI.DYNAMICS AX DEVELOPER [address] [place] [address] Ct Imaging [place] [address] Referral IDStatusReasonStart DateExpiration DateVisits RequestedVisits [id number] Review Auto-Generated Referral /[id number] / ProceduresReferred By ContactReferred To Contact Diagnoses Parkinson's disease (HCC) Procedures PROVIDER ORDERED FOLLOW UP OFFICE/OUTPATIENT [facility] 60-74 MINUTES Gloria Perez, STAGE MANAGER.DYNAMICS AX DEVELOPER [address] [place] [address] Referral IDStatusReasonStart DateExpiration DateVisits RequestedVisits [id number] Review PCP Requested Referral / Additional Source Comments INFORMATION SOURCE (unrecogn ized section and content) DATE CREATED AUTHOR 11/02/2017 [employer] DATE CREATED AUTHOR AUTHOR'S ORGANIZ ATION 09/09/2021 [facility] [employer] DATE CREATED AUTHOR AUTHOR'S ORGANIZ ATION 07/23/2022 [facility] DATE CREATED AUTHOR AUTHOR'S ORGANIZ ATION 03/01/2024 [facility] DATE CREATED AUTHOR AUTHOR'S ORGANIZ ATION 03/12/2024 [facility] DATE CREATED AUTHOR AUTHOR'S ORGANIZ ATION 03/24/2024 [facility] DATE CREATED AUTHOR AUTHOR'S ORGANIZ ATION 09/29/2024 [facility] DATE CREATED AUTHOR AUTHOR'S ORGANIZ ATION 10/07/2024 [facility] Goals (unrecognized section and content) Goals may be documented in a n alternate sectionNo InformationNo InformationNo InformationNo InformationNo InformationNo InformationNo InformationNo InformationNo InformationNo InformationNo InformationNo InformationNo InformationNo InformationNo InformationNo InformationNo InformationNo InformationNo InformationNo InformationGoals may be documented in an alternate sectionGoals may be documented in an alternate section REASON FOR VISIT (unrecogniz ed section and content) ReasonCommentsParkinson's DiseaseReasonCommentsAppointmentPatient UpdateCalled to schedule follow up. Patient in hospital.ReasonCommentsPatient UpdateReason Onset DateCommentsRefill Xwfurao7204/13/2022ReasonCommentsParkinson's Disease SpecialtyDiagnoses / ProceduresReferred By ContactReferred To Contact Diagnoses Parkinson's disease Procedures PROVIDER ORDERED FOLLOW UP OFFICE/OUTPATIENT [facility] MDM 60-74 MINUTES Gloria Perez, HEIDI.DYNAMICS AX DEVELOPER [address] [address] Referral IDStatusReasonStart DateExpiration DateVisits RequestedVisits [id number] Review PCP Requested Referral /[id number] ProblemReasonCommentsParkinson's DiseaseFollow UpReasonCommentsParkinson's DiseaseFollow UpReasonComments3 Month Follow UpReasonOnset DateCommentsOT Initial Eval14ReasonOnset Date CommentsNo Show02/24/2024No showReasonComments3 month follow upReasonOnset Date CommentsMed [id number] hanging out of vaginaReason CommentsSleep ApneaReasonOnset DateCommentsre: OT Eval set-up03/05/2024Specialty Diagnoses / ProceduresReferred By ContactReferred To Contact Diagnoses Parkinson's disease without dyskinesia, with fluctuating manifestations (HCC) Procedures PROVIDER ORDERED FOLLOW UP OFFICE/OUTPATIENT [facility] 60 MINUTES Gloria Perez, HEIDI.DYNAMICS AX DEVELOPER [address] [address] Referral IDStatusReasonStart DateExpiration DateVisits RequestedVisits [id number] PCP Requested Referral [id number] Check Source Comments (unrecognize d section and content) In the event this informatio n is protected by the Federal Confidentiality of Alcohol and Drug Abuse Patient Records regulations: The Federal rules restrict any use of the information to criminally investigate or prosecute any alcohol or drug abuse patient.[facility] HospitalIn the event this information is protected by the Federal Confidentiality of Alcohol and Drug Abuse Patient Records regulations: The Federal rules restrict any use of the information to criminally investigate or prosecute any alcohol or drug abuse patient.[facility] HospitalIn the event this information is protected by the Federal Confidentiality of Alcohol and Drug Abuse Patient Records regulations: The Federal rules restrict any use of the information to criminally investigate or prosecute any alcohol or drug abuse patient.[facility] HospitalIn the event this information is protected by the Federal Confidentiality of Alcohol and Drug Abuse Patient Records regulations: The Federal rules restrict any use of the information to criminally investigate or prosecute any alcohol or drug abuse patient.[facility] HospitalIn the event this information is protected by the Federal Confidentiality of Alcohol and Drug Abuse Patient Records regulations: The Federal rules restrict any use of the information to criminally investigate or prosecute any alcohol or drug abuse patient.[facility] HospitalIn the event this information is protected by the Federal Confidentiality of Alcohol and Drug Abuse Patient Records regulations: The Federal rules restrict any use of the information to criminally investigate or prosecute any alcohol or drug abuse patient.[facility] HospitalIn the event this information is protected by the Federal Confidentiality of Alcohol and Drug Abuse Patient Records regulations: The Federal rules restrict any use of the information to criminally investigate or prosecute any alcohol or drug abuse patient.[facility] HospitalIn the event this information is protected by the Federal Confidentiality of Alcohol and Drug Abuse Patient Records regulations: The Federal rules restrict any use of the information to criminally investigate or prosecute any alcohol or drug abuse patient.[facility] HospitalIn the event this information is protected by the Federal Confidentiality of Alcohol and Drug Abuse Patient Records regulations: The Federal rules restrict any use of the information to criminally investigate or prosecute any alcohol or drug abuse patient.[facility] HospitalIn the event this information is protected by the Federal Confidentiality of Alcohol and Drug Abuse Patient Records regulations: The Federal rules restrict any use of the information to criminally investigate or prosecute any alcohol or drug abuse patient.[facility] HospitalIn the event this information is protected by the Federal Confidentiality of Alcohol and Drug Abuse Patient Records regulations: The Federal rules restrict any use of the information to criminally investigate or prosecute any alcohol or drug abuse patient.[facility] HospitalIn the event this information is protected by the Federal Confidentiality of Alcohol and Drug Abuse Patient Records regulations: The Federal rules restrict any use of the information to criminally investigate or prosecute any alcohol or drug abuse patient.[facility] HospitalIn the event this information is protected by the Federal Confidentiality of Alcohol and Drug Abuse Patient Records regulations: The Federal rules restrict any use of the information to criminally investigate or prosecute any alcohol or drug abuse patient.[facility] HospitalIn the event this information is protected by the Federal Confidentiality of Alcohol and Drug Abuse Patient Records regulations: The Federal rules restrict any use of the information to criminally investigate or prosecute any alcohol or drug abuse patient.[facility] Care Teams (unrecognized sec tion and content) Team Status: Active Member Role Status Dates Honey Rabago DO Primary Care Provider Active Team Status: Inactive Member Role Status Dates Honey Rabago DO Primary Care Provider, Attending Paula mock Active Team Status: Inactive Member Role Status Dates Honey Rabago DO Primary Care Provider Active Phu Pate Provider, Attending ProviderActiveMaggy Mehta RN Other ProviderActiveSasha Hannah RNOther ProviderActiveNadia Dutton RN Other ProviderActiveMicalberto Garrett RNOther ProviderActiveKaren Smith RNOther ProviderActiveMoyo Ayon RNOther ProviderActiveFamilia Villatoro MD Other ProviderActiveAnalj Ziegler MDOther ProviderActiveLisa Mitch Coronado , STAGE MANAGER Other ProviderActiveRonobidiana Tellez , DOOther ProviderActiveMusarianna Chan MD Other ProviderActiveJustice De Oliveira , DOOther ProviderActiveEnrrique Mota MDOther ProviderActiveRosa Maria [place] MDOther ProviderActiveLysherin Suh , ANP-BCOther ProviderActiveJuan Wallace MDOther ProviderActiveJerson Walker MDOther ProviderActiveGaye Claire MDOther ProviderActiveQueta Mclain MD Other ProviderActiveThrogers Blackmon MDOther ProviderActiveAnibal Gallagher MDOther ProviderActiveDamion Thapa MDOther ProviderActiveFaustina Barr , COMMERCIAL ART INSTRUCTOR-COther ProviderActiveValente Lauren MDOther ProviderActiveKareem Elizondo MD Other ProviderActiveItalia Colbert MDOther ProviderActiveRonan Davidson MDOther ProviderActiveShantel Nayak , DOOther ProviderActiveHani Frank Mooney MD Other ProviderActiveNeal R Eliane , DOOther ProviderActiveAnthony M Miniaci , DOOther ProviderActiveLinda Obika , APRNOther ProviderActiveShcorina Pratt , DO Other ProviderActiveObaangela Weathers MDOther ProviderActiveLee Ann Terry RN Other ProviderActive Team Status: Inactive Member Role Status Dates Honey Rabago DO Primary Care Provider Active Marvin Peter DOEmergency ProviderActiveAndleatha Mota [facility] Centerit Provider ActiveJairo Benson MDOther ProviderActiveOswaldo Almonte MDOther Provider ActiveAshok Colladoending ProviderActiveTeam MemberRelationshipSpecialty Start DateEnd Date Hima Honey Mcgrath, DO [address] [place] [address] PCP - Hukacny77/6/05Team MemberRelationshipSpecialtyStart DateEnd Date Hima Honey Mcgrath, DO [address] [place] [address] PCP - Bcdbgku24/6/05Team MemberRelationshipSpecialtyStart DateEnd Date Hima Honey Mcgrath, DO [address] [place] [address] PCP - [id number]/6/05 Team Status: Active Member Role Status Dates Honey Rabago DO Primary Care Provider Active Alcides Moya MDAkayy Provider, Attending ProviderActiveMaggy Mehta , KORTNEY Other ProviderActiveSasha Hannah RNOther ProviderActiveNadia Dutton , KORTNEY Other ProviderActiveAnuradha Garrett RNOther ProviderActiveKaren Smith RNOther ProviderActiveErika Ayon RNOther ProviderActiveaFmilia Villatoro MD Other ProviderActiveAnalj Ziegler MDOther ProviderActiveLisa Mitch Dials , STAGE MANAGER Other ProviderActiveRonobidiana Tellez , DOOther ProviderActiveMusarianna Chan MD Other ProviderActiveKristopher Lindbloom , DOOther ProviderActiveEnrrique Mota MDOther ProviderActiveRosa Maria Odell MDOther ProviderActiveLysherin Suh , ANP-BCOther ProviderActiveJuan Wallace MDOther ProviderActiveJerson Walker MDOther ProviderActiveGaye Claire MDOther ProviderActiveQueta Mclain MD Other ProviderActiveThomas Zainab Blackmon MDOther ProviderActiveFirlowell Gallagher MDOther ProviderActiveEarrenee Thapa MDOther ProviderActiveFaustina Barr , COMMERCIAL ART INSTRUCTOR-COther ProviderActiveFryeni Lauren MDOther ProviderActiveKareem Elizondo MD Other ProviderActiveItalia Colbert MDOther ProviderActiveRonan Davidson MDOther ProviderActiveShantel Nayak , DOOther ProviderActiveHani Frank Mooney MD Other ProviderActiveNeal R Eliane , DOOther ProviderActiveAnthony M Miniaci , DOOther ProviderActiveLinda Obika , APRNOther ProviderActiveLázaro Pratt , DO Other ProviderActiveObaangela Weathers MDOther ProviderActiveLee Ann Terry RN Other ProviderActive Team Status: Inactive Member Role Status Dates Honey Rabago DO Primary Care Provider Active [facility] ProviderActive Team Status: Inactive Member Role Status Dates Holger Dorado DO Emergency Provider Active Bhupendra Izaguirre [facility] ProviderActive Team Status: Active Member Role Status Dates Honey Rabago DO Primary Care Provider, Attending Paula mock Active Team MemberRelationshipSpecialtyStart DateEnd Date Honey Rabago, DO [address] [place] [address] PCP - Tulpxub55/6/05Team MemberRelationshipSpecialtyStart DateEnd Date Honey Rabago, DO [address] [place] [address] PCP - Oqaqgoh45/6/05Team MemberRelationshipSpecialtyStart DateEnd Date Honey Rabago, DO [address] [place] [address] PCP - Uwpaqtf98/6/05Team MemberRelationshipSpecialtyStart DateEnd Date Honey Rabago, DO [address] [place] [address] PCP - Xfzefnx40/6/05Team MemberRelationshipSpecialtyStart DateEnd Date Honey Rabago DO [address] [place] [address] PCP - Jsiizpt62/05Team MemberRelationshipSpecialtyStart DateEnd Date Honey Rabago DO [address] [place] [address] PCP - Qphvlxi80/6/05Team MemberRelationshipSpecialtyStart DateEnd Date Honey Rabago, PCP - GeneralInternal Medicine07/28/22Team MemberRelationshipSpecialtyStart Date End Date Honey Rabago DO [address] [place] [address] PCP - Lcndvgd51/6/05Team MemberRelationshipSpecialtyStart DateEnd Date Honey Rabago DO [address] [place] [address] PCP - Nshskkd53/05Team MemberRelationshipSpecialtyStart DateEnd Date Honey Rabago DO [address] [place] [address] PCP - GeneralInternal Medicine05/04/23 Juani Martinez MD [address] [place] [address] Referring PhysicianPulmonary Disease07/29/23Team MemberRelationshipSpecialtyStart DateEnd Date Honey Rabago DO [address] [place] [address] PCP - GeneralInternal Medicine05/04/23 Juani Martinez MD [address] [place] [address] Referring PhysicianPulmonary Disease07/29/23Team MemberRelationshipSpecialtyStart DateEnd Date Honey Rabago DO [address] [place] [address] PCP - Fqwwqxo69/6/05Team MemberRelationshipSpecialtyStart DateEnd Date Honey Rabago DO [address] [place] [address] PCP - GeneralInternal Medicine05/04/23 Juani Martinez MD [address] [facility] [place] [address] Referring PhysicianPulmonary Disease07/29/23Team MemberRelationshipSpecialtyStart DateEnd Date Honey Rabago DO [address] [place] [address] PCP - GeneralInternal Medicine05/04/23 Juani Martinez MD [address] [place] [facility] [place] [address] Referring PhysicianPulmonary Disease07/29/23Team MemberRelationshipSpecialtyStart DateEnd Date Honey Rabago DO [address] [place] [address] PCP - Mldgtwz54/6/05Team MemberRelationshipSpecialtyStart DateEnd Date Honey Rabago, [address] [place] [address] PCP - GeneralInternal Medicine05/04/23 Juani Martinez MD [address] [place] [facility] [place] [address] Referring PhysicianPulmonary Disease07/29/23Team MemberRelationshipSpecialtyStart DateEnd Date Honey Rabago, [address] [place] [address] PCP - GeneralInternal Medicine05/04/23 Juani Martinez MD [address] [place] [facility] [place] [address] Referring PhysicianPulmonary Disease07/29/23Team MemberRelationshipSpecialtyStart DateEnd Date Honey Rabago, [address] [place] [address] PCP - GeneralInternal Medicine05/04/23 Juani Martinez MD [address] [place] [facility] [place] [address] Referring PhysicianPulmonary Disease07/29/23Team MemberRelationshipSpecialtyStart DateEnd Date Honey Rabago DO [address] [place] [address] PCP - GeneralInternal Medicine05/04/23 Juani Martinez MD [address] [place] [address] Referring PhysicianPulmonary Disease07/29/23Team MemberRelationshipSpecialtyStart DateEnd Date Honey Rabago DO [address] [place] [address] PCP - GeneralInternal Medicine05/04/23 Juani Martinez MD [address] [place] [address] Referring PhysicianPulmonary Disease07/29/23Team MemberRelationshipSpecialtyStart DateEnd Date Honey Rabago DO [address] [facility] [address] [place] [address] PCP - Uthmzow57/6/05 Team Status: Inactive Member Role Status Dates Honey Rabago DO Primary Care Provider Active Start: February 26, 2024 End: February 26, 2024Cristine Root ProviderActiveStart: February 26, 2024 End: February 26, 2024 Team Status: Inactive Member Role Status Dates Honey Rabago DO Primary Care Provider Active Start: March 04, 2024 End: March 04, 2024Cristine Root ProviderActiveStart: March 04, 2024 End: March 04, 2024 Team Status: Inactive Member Role Status Dates Honey Rabago DO Primary Care Provider Active Start: March 16, 2024 End: March 16, 2024Donoa Jones , MDAttending ProviderActiveStart: March 16, 2024 End: March 16, 2024Team MemberRelationshipSpecialtyStart DateEnd Date Honey Rabago DO [address] [place] [address] PCP - GeneralInternal Medicine05/04/23 Juani Martinez MD [address] [place] [address] Referring PhysicianPulmonary Disease07/29/23Team MemberRelationshipSpecialtyStart DateEnd Date Vandana Orourke MD [address] [facility] [address] [place] [address] PCP - GeneralFamily Medicine05/10/24 Juani Martinez MD [address] [place] [address] Referring PhysicianPulmonary Disease07/29/23Team MemberRelationshipSpecialtyStart DateEnd Date Vandana Orourke MD [address] [facility] [address] [place] [address] PCP - GeneralFamily Medicine05/10/24 Juani Martinez MD [address] [place] [address] Referring PhysicianPulmonary Disease07/29/23Team MemberRelationshipSpecialtyStart DateEnd Date Vandana Orourke MD [address] [facility] [address] [place] [address] PCP - GeneralFamily Medicine05/10/24 Juani Martinez DO Referring PhysicianPulmonary Disease07/29/23Team MemberRelationshipSpecialtyStart DateEnd Date Vandana Orourke MD [address] [place] [address] PCP - GeneralFamily Medicine05/10/24 Juani Martinez DO Referring PhysicianPulmonary Disease07/29/23Team MemberRelationshipSpecialtyStart DateEnd Date Vandana Orourke MD [address] [place] [address] PCP - GeneralFamily Medicine05/10/24 Juani Martinez DO Referring PhysicianPulmonary Disease07/29/23Team MemberRelationshipSpecialtyStart DateEnd Date Honey Rabago DO [address] [place] [address] PCP - GeneralInternal Medicine Vandana Orourke MD [address] [place] [address] PCP - GeneralFamily Medicine05/10/24 Honey Rabago DO [address] [place] [address] [facility] Juani Martinez DO [address] [place] [address] Referring PhysicianPulmonary Disease07/29/23Team MemberRelationshipSpecialtyStart DateEnd Date Honey Rabago DO PCP - GeneralInternal Medicine Honey Rabago DO [address] [facility] [address] [place] [address] PCP - GeneralInternal Medicine Honey Rabago DO [address] [facility] [address] [place] [address] PCP - [place] Vandana Orourke MD [address] [place] [address] [address] [place] [address] PCP - Generalmily Medicine05/10/24 Honey Rabago DO [address] [facility] [address] [place] [address] PCP - [facility]06/13/23 Juani Martinez DO [address] [facility] [address] [place] [address] Referring PhysicianPulmonary Disease07/29/23 Leslie Cardoso MA Family Medicine FOR RECORDS PERTAINING TO PATIENTS WHO ARE [...] BE BASED ON THE PRIMARY CLINICAL RECORDS. [employer] [facility]. provides no warranty or guarantee of the accuracy or completeness of information in this document.
[2025-01-23 10:09] LABS: Glucose Urine UA 250 mg/dL (NEGATIVE)
[2025-01-23 11:14] LABS: Cast Seen? NONE SEEN #/LPF (NONE SEEN); Crystals Seen? None Seen #/HPF (None Seen); Urine Culture Indicated YES-FRMC
== END 2025-01-23 09:31 | disposition home or self-care (01) ==
LOC: LAB 09:30
PROVIDERS: PCP Internal Medicine; Visit Provider Family Medicine
DX: R82.71 Bacteriuria (principal)
CPT/HCPCS: 81001; 87086; 87088; 87186

== ENCOUNTER 2025-01-28 02:24 | Outpatient (REF) | payer MEDICARE, MEDICAID, SELFPAY ==
--- OUTSIDE RECORDS SUMMARY | 2023-09-28 09:45 | XMS_ITS ---
Author Organization [facility] Serv[facility] es Address [address] [place] [address] Care Team Providers Care Hardboard Supervisor Name Role Phone Yris Eid Unavailable [phone] REASON FOR VISIT bh fu Encounters Encounter Location Date Provider Diagnosis [facility] [address] [place] [address] 09/28/2023 Yris Eid Plan Of Treatment No Information Progress Notes * ALTON SALMERONDOB:1940 (84 yo F)Acc No.[id number]:09/28/2023 Behavioral Health Patient: Erik CRAWFORDALTON :?ANKITA Wang-SDOB:1940???Age:83 Y ???Sex:FemaleDate:4Phone:[phone]:[address] [place], [place] [id number] Subjective: * Chief Complaints: * B h fu Care Plan Details* * Electronic signature of ANKITA Del Angel on 01/28/2025 at 02:33 AM EST Sign off status: Pending * Provider: MIAH Vickers Date: 0 09/28/2023 Generated for Printing/Faxing/eTransmitting on:?01/28/2025 02:33 AM EST
--- OUTSIDE RECORDS SUMMARY | 2023-12-06 06:00 | XMS_ITS ---
Author Organization [facility] Servic es Address [address] [facility] [address] Care Team Providers Care Flight Tower Dispatcher Name Role Phone Yris Eid Unavailable [phone] Encounters Encounter Location Date Provider Diagnosis [place] [address] [facility] [place] [address] 12/06/2023 Yris Eid Plan Of Treatment No Information Progress Notes * ALTON SALMERONDOB:1940 (84 yo F)Acc No.[id number]:12/06/2023 Behavioral Health Patient: ALTON SEGURA :?ANKITA Wang-SDOB:1940???Age:83 Y ???Sex:FemaleDate:12/06/2023hone:[phone]:[address] [place], [place] [phone] Care Plan Details* * Electronic signature of ANKITA Del Angel on 01/28/2025 at 02:32 AM EST Sign off status: Pending * Provider: MIAH Vickers Date: 0 12/06/2023 Generated for Printing/Faxing/eTransmitting on:?01/28/2025 02:32 AM EST
--- OUTSIDE RECORDS SUMMARY | 2024-01-02 05:15 | XMS_ITS ---
Author Organization [facility] Servic es Address [address] [facility] [place] [address] Care Team Providers Care Pr Intern Name Role Phone Yris Eid Unavailable [phone] REASON FOR VISIT BH F/U Encounters Encounter Location Date Provider Diagnosis [facility] [address] [facility] [place] [address] 01/02/2024 Yris Eid Plan Of Treatment No Information Progress Notes * ALTON SALMERONDOB:1940 (84 yo F)Acc No.[id number]:01/02/2024 Behavioral Health Patient: Erik CRAWFORD ALTON :?ANKITA Wang-SDOB:1940???Age:83 Y ???Sex:FemaleDate:4Phone:[phone]:[address] [place], [place] [phone] Subjective: * Chief Complaints: * B H F/U Care Plan Details* * Electronic signature of ANKITA Del Angel on 01/28/2025 at 02:33 AM EST Sign off status: Pending * Provider: MIAH Vickers Date: Generated for Printing/Faxing/eTransmitting on:?01/28/2025 02:33 AM EST
--- OUTSIDE RECORDS SUMMARY | 2024-05-09 08:15 | XMS_ITS ---
Author Organization [facility] Address [address] [place] [address] [place] [address] Care Team Providers Care Clerical Clerk Name Role Phone Vandana Orourke Primary Care Provider UnavailLan Gao Unavailable [phone] Encounters Encounter Location Date Provider Diagnosis [facility] [address] [place] [address] 05/09/2024 Lan Mcmahon Plan Of Treatment Next Appt Details Provider Name:Lan chavarria, 01/30/2025 01:45:00 PM, [address] [place], [address] Progress Notes * Shayy BARKER ADOB:[birth year] (84 yo F)Acc No.[id number]:05/09/2024 Patient:?Shayy Barker :?DORI MurphyMDOB:1940???Age:83 Y???Sex: FemaleDate:05/09/2024Phone:[phone]:One [place], [place]Pzd:Vandana Orourke * Electronic signature of Lan Mcmahon DPM on 01/28/2025 at 02:32 AM ESTSign off status: Pending * Provider: Mitch Mcmahon DPM Date: 0 05/09/2024 Generated for Printing/Faxing/eTransmitting on:?01/28/2025 02:32 AM EST
--- OUTSIDE RECORDS SUMMARY | 2024-08-08 09:30 | XMS_ITS ---
Author Organization [facility] Address [address] [place] [address] [place] [address] Care Team Providers Care Retanner Name Role Phone Vandana Orourke Primary Care Provider UnavailLan Gao Unavailable [phone] Encounters Encounter Location Date Provider Diagnosis [facility] [address] [place] [address] 08/08/2024 Lan Mcmahon Plan Of Treatment Next Appt Details Provider Name:Lan chavarria, 01/30/2025 01:45:00 PM, [address] [place], [address] Progress Notes * Shayy BARKER ADOB:[birth year] (84 yo F)Acc No.[id number]:08/08/2024 Patient:?Shayy Barker :?DORI MurphyMDOB:1940???Age:84 Y???Sex: FemaleDate:08/08/2024Phone:[phone]:One [place], [place]Adj:Vandana Orourke * Electronic signature of Lan Mcmahon DPM on 01/28/2025 at 02:32 AM ESTSign off status: Pending * Provider: Mitch Mcmahon DPM Date: 0 08/08/2024 Generated for Printing/Faxing/eTransmitting on:?01/28/2025 02:32 AM EST
--- OUTSIDE RECORDS SUMMARY | 2024-11-07 08:30 | XMS_ITS ---
Author Organization [facility] Address [address] [place] [address] [place] [address] Care Team Providers Care Special Order Jeweler Name Role Phone Vandana Orourke Primary Care Provider UnavailLan Gao Unavailable [phone] Encounters Encounter Location Date Provider Diagnosis [facility] [address] [address] 11/07/2024 Lan Mcmahon Plan Of Treatment Next Appt Details Provider Name:Lan chavarria, 01/30/2025 01:45:00 PM, [address] [place], [address] Progress Notes * Shayy BARKER ADOB:[birth year] (84 yo F)Acc No.[id number]:11/07/2024 Patient:?Shayy Barker :?DORI MurphyMDOB:1940???Age:84 Y???Sex: FemaleDate:11/07/2024Phone:[phone]:One [place], [place]Qmq:Vandana Orourke * Electronic signature of Lan Mcmahon DPM on 01/28/2025 at 02:32 AM ESTSign off status: Pending * Provider: Mitch Mcmahon DPM Date: 0 11/07/2024 Generated for Printing/Faxing/eTransmitting on:?01/28/2025 02:32 AM EST
--- OUTSIDE RECORDS SUMMARY | 2025-01-23 19:36 | XMS_ITS | Continuity of Care Document ---
Author Organization [facility] Address [address] [place] [address] Phone Care Team Providers Care Ict Customer Support Officer Name Role Phone Vandana Orourke MD Attending Provider Care Teams Patient Care Team Team Status: Active Member Role/Relationship Status Dates William Rabago DO Primary Care Provider Active Visit Care Team Team Status: Inactive Member Role/Relationship Status Dates Vandana Orourke MD Attending Provider Active Star t: January 23, 2025 End: January 23, 2025 Allergies, Adverse Reactions, Alerts Allergen Type Severity Reaction Last Updated Verified Status atorvastatin Allergy Unknown Unknown Reaction Decemb er 2023 6:48pm Yes Active bupropion Allergy Unknown Hallucinating March 042023 6:48pm Yes Active hydrocodone Allergy Unknown Unknown Reaction Decembe r 2023 6:48pm Yes Active latex Allergy Unknown Rash March 04, 2024 6:48pm Yes Active Social History Smoking Status Status Start Date End Date Date of Observa tion Never smoked tobacco (finding) March 04, 2024 7:28pm Observation Status Observation Response Date of Response Legal Sex Female (finding) Sex Assigned At BirthFemaleMa1940 Family History Relationship Condition Age at Onset Recorded Date/T denis Not Specified No pertinent family history Unknown fatherDeceasedUnknownmotherDeceasedUnknown Problems Active Problems Problem Diagnosis/Recorded Date Onset Date Stat us Urinary tract infection September 28, 2021 3:42am Unknown Active Compression fracture of lumb ar spine, non-traumatic March 04, 2024 9:51pm Unknown Active Impaired mobility and ADLs November 05, 2021 1:46pm Un known Active Compression fracture November 04, 2021 5:25pm Unknown Active Diabetes July 31, 2020 3:22pm Unknown Active Anemia November 19, 2021 4:21pm Unknown A ctive Back pain October 19, 2021 10:05pm Unknown Act anette Chronic anticoagulation November 09, 2021 2:44pm Unkno wn Active Depression November 05, 2021 1:46pm Unknown Act anette Hyperlipidemia July 31, 2020 3:23pm Unknown Acti ve Hypothyroid November 09, 2021 2:46pm Unknown Act anette Frequent falls November 05, 2021 1:46pm Unknown A ctive GERD (gastroesophageal reflux disease) November 09 2:46pm Unknown Active Hypertension November 09, 2021 2:47pm Unknown Act anette Parkinsons disease July 31, 2020 3:23pm Unknown Active Inactive/Resolved Problems Problem Diagnosis/Recorded Date Onset Date Stat us No problem, feared complaint unfounded July 31, 2020 3:56pm Unknown Resolved Back pain October 19, 2021 10:03pm Unknown Res olved Contusion July 10, 2017 6:06pm Unknown Reso lved Dysphagia January 18, 2017 9:01am Unknown Re solved Abdominal pain January 18, 2017 9:02am Unknown Resolved Fall October 19, 2021 10:05pm Unknown Res olved Medications Medication Status Dose Units Route Directions Qty Days Refills S tart Date Stop Date End Date Reason(s) Instructions Adherence Metformin 500 MG tablet Discontinued 1000 MG PO Twi ce daily with meals January 18, 2017 12:00[facility]2021 3:32pmVenlafaxine 75 MG tablet Kojljxlkephz933BKYTXnpqoUtyrvbbt 7th, 2017 12:002021 12:37pm Pravastatin 40 mg IbiomgNmwweldubebb42NVLMJjabwVmjnxufv 7th, 2017 12:002021 5:12pmOmeprazole 40 MG capsule,delayed release(DR/EC)Fnhdyvoxcefj93CK POEvery 2016 12:00[facility] 3:31pmAspirin (Aspir-81) 81 mg Tablet,Delayed Release (Dr/Ec)Dschjobmeysm20DPXTAxtbgGsbdkuah 7th, 2017 12:00amAugust 2021 4:58pmLevothyroxine 75 MCG tabletDiscontinued 75MCGPODAILY@0630[facility] 2016 12:00amSeptember 2021 3:32pmWarfarin 2 MG qnmyevJbhprgicrqbx1QJSQEk DirectedCaldwell Medical Center 2016 12:00[facility] 2021 1:28pm1 tab daily on Mon, , Tue, Tue, Sat, Sun 0.5 tab daily on ThursMetoprolol Tartrate 50 MG dvfuihDstbvmtmtuek49UJONYdxhk dailyCaldwell Medical Center 2016 12:00[facility] 2021 3:31pmVit C,U-Fi-Oguro-Lutein-Zeaxan (Preservision Areds-2) 754-947-19-1 bi-scqy-ro-mg MyjjhdyXxliqujmsmgt2EQDCYtwrst day in the morning and at bedtimeCaldwell Medical Center 2016 12:00amApril 2017 5:45pmBiotin 1,000 mcg Tablet,ChewableDiscontinued 1000MCGPODailyCaldwell Medical Center 2016 12:00amAugust 2021 4:59pmOxycodone (Roxicodone) 5 mg fdvddyIraaihsryeto6RDBGEtoyu times daily as needed for vxsl011 October 19ugu2021 5:03pmBack pain Dorsalgia, unspecifiedCyclobenzaprine 5 mg jqsoviIwcfuzqhokdu5PPDLBdgbu times daily as needed for muscle ukrlf035Pfladn 2021 11:00pmAugust 2021 5:00pmAtorvastatin 40 mg QuxqeqHksxumnvngst23CDGHLftcf at bedtimeAugust 2021 11:00pmSeptember 2021 3:31pmAcetaminophen 650 mg TabletDiscontinued 650MGPOThree times daily as needed for PainAugust 2021 11:00pmAugust 2021 11:27amCyanocobalamin (Vitamin B-12) (Vitamin B-12) 2,000 mcg Tablet Extended HpjdljjDjlxypoveqjk0520UKQPTZjctoYtephd 2021 11:00pmSept2021 3:32pmCarbidopa-Levodopa 25-100 mg tabletDiscontinued1.5TABPOThree times dailyAugust 2021 11:00pmptember 2021 3:31pmCholecalciferol (Vitamin D3) (Vitamin D3) 125 mcg (5,000 unit) ZvwwzuCknzbzmeqlev071ZINWPCwrfr morningAugust 2021 11:00pmpt2021 3:32pmVit C,S-Qf-Hxabp-Lutein-Zeaxan (Preservision Areds-2) 250-90-40-1 mg Capsule Xisrdcvhewtb9UXAHYKnlsi dailyAugust 2021 11:00pmptember 2021 3:32pmVenlafaxine 75 mg OljoyoQukeuejsvpds26YIWLFiehl after supperAugust 2021 11:00pmAugust 2021 12:44pmVenlafaxine 150 mg capsule,extended release 17muOrgmekidcyae968JACYEyihs morningAugust 2021 11:00pmSeptember 2021 3:31pmVenlafaxine 75 mg tablet extended release 37vwIyfpjjclhire59ACXJWqxtn eveningAugust 2021 11:00pmSeptember 2021 3:31pmLidocaine (Lidocaine Pain Relief) 4 % Adhesive Patch,SivnbprfrBhpqqiovbkgh3BFVBJADJTTFDZfobh48Xeqqxt 29th, 2022 11:00pmAugust 2021 12:51pmPolyethylene Glycol 3350 (Miralax) 17 gram Powder In AeahrqMbfabuyylqej03ZJFDRfges lzzvf65Htlrxd 29th, 2022 11:00pm November 25, 2021 3:32pmSennosides-Docusate Sodium (Stool Softener-Stimulant Laxat) 8.6-50 mg KjebmiAgbkbjdkmche3FJWLDWoocn thgep82Hrrshn 29th, 2022 11:00pm November 25, 2021 3:31pmAcetaminophen 500 mg ZkqqyxTopwzkfbuegc1750BIIGAfdtl times cwsab89Cjlnqk 29th, 2022 11:00pmAugust 2021 12:48pmOxycodone 5 mg ZzhulvGzcqxunyannq3LFBELfzgu 6 hours as needed for droo73Yqsgly2021November 25, 2021 3:31pmMirtazapine 7.5 mg TabletDiscontinued7.5MGPODaily at laavoly43Tiexme2021 11:00pmSeptember 2021 3:31pmWarfarin - Pharmacy Dosing (Coumadin Pharmacy Dosing)Okplzarjypuu5ssqphwpnmjdilxtAigz as needed0 November 09, 2021 11:00pmSeptember 2021 3:32pmWarfarin (Jantoven) 1 mg IpgwvvGddoxfxkstxt2OQRHUvto77Kpwieo 30th, 2022 11:00pmSeptember 2021 3:31pmCefdinir 300 mg KzikhgoBfeirwmlgvzo847LRRJIgkdq nxucl666Pdpbke2021 11:00pmSeptember 2021 3:31pmCarbidopa-Levodopa 25-100 mg TabletActive1.5 TABPODailyDecember 2023 12:00amUnknownEstradiol 0.01 % (0.1 mg/gram) cream Nwcbvh4VXSWJTURWEYMBBMEWyjako 2023 12:00ammondayUnknown Aspirin 81 mg tablet,delayed release (DR/EC)Hcddeo90MHYYLetqrJuavvvag 22nd, 2024 12:00amUnknownKetoconazole 2 % nypzeruWtekxd7XHGLLHJSWMGNMtqdtt Tuesday, Tuesday, and 2023 12:00amUnknownTirzepatide (Mounjaro) 7.5 mg/0.5 mL pen injectorActive7.5MGSUBCUTevery 2023 12:00am fridaysUnknownVit C,O-Gt-Kcacr-Lutein-Zeaxan (Preservision Areds-2) 250-90-40-1 mg qneedenWwwbbz1URVYHHanbm dailyMarch 04, 2024 12:00amUnknownDiclofenac Sodium 1 % ijvQadktk5VYDKJQEGBJkacm daily as needed for painDecember 2023 12:00amapply to single elbow, wrist or hand; for hand includes palm/fingers/back of handUnknownWarfarin 2 MG kffrclRvyjah0AGBQUekfkTnhxctov 2023 12:93rv2ck Tu, Tue, Tue 2m Sun, Min, Thur, SatUnknownCephalexin 500 mg RoaqsddIuyqcx080YGLELdilo 8 hours 2023 12:00amUnknownOxycodone-Acetaminophen (Percocet) 5-325 mg tabletActive0.5TABPOEVERY 4-6 HOURS as needed for Vkyk6865Duugljem2023 Nontraumatic compression fracture of lumbar vertebraUnknownEzetimibe (Zetia) 10 mg DffqwzRkbgljrrwgdo07DCYKVwhtpMipuuqlb 2016 12:00amApril 2017 5:44pmSolifenacin (Vesicare) 5 mg VcygjhLxllwrvkhqwk9PSFYSrozkCogsuhxw 2016 12:00amAugust 2021 5:12pmVit D-Y-Hnwxrx-Zinc-Lutein (Preservision Lutein) 226 mg-200 unit -5 mg-0.8 mg FuodxgnCpmqhoakurgk0YHQJAZq Directed February 22, 2017 12:00amApril 2017 5:45pmTrospium 20 mg tablet Yckhrshhqmcj20QLISSbcwv dailyApril 2017 11:00pmAugust 2021 5:12pm Cephalexin 500 mg TysqxzrTnpvcyiruabx693JCFCT2F5024Moth 2021 11:00pmAugust 2021 5:00pmAcetaminophen 500 mg zsbnxqCejbomveeysq2445JNCUDfiid times dailyAugust 2021 12:48pmSeptember 2021 3:31pmLidocaine (Lidocaine Pain Relief) 4 % adhesive patch,ntphqwzcwVoiftbvsoegd9QVZFWXTLRAEJXzwuq morning November 11, 2021 12:51pmSeptember 2021 3:32pmMetformin 500 mg Tablet Drqsiy5010QRFWRqjqb daily with lglhx738188Avnzrrdjh 12th, 2022 11:00pmUnknown Venlafaxine 75 mg Capsule,Extended Release 78nuDexvfh76TIGFXkpnx ypljgaw66438 November 23, 2021 11:00pmUnknownLidocaine (Lidocaine Pain Relief) 4 % Adhesive Patch,KouvsbtxtYujxuf3FKJIVUAOBZZEIrkzz tpfhtzo56763Alvszjhrr2021 11:00pmUnknownPolyethylene Glycol 3350 (Miralax) 17 gram Powder In Packet Wbhwsx37IUNMJtjis daily as needed for tlsmcsunjxuc1106Ikpogfmmz 12th, 2022 11:00pmUnknownVenlafaxine 150 mg Capsule,Extended Release 00evSnblah839MBFRQlasa wfhvjuk45378Ohhfhwuld2021 11:00pmUnknownCyanocobalamin (Vitamin B-12) 1,000 mcg EuynydVpbtin9717VYQNSOjbzk14366Lophokdxi 12th, 2022 11:00pmUnknown Levothyroxine 75 mcg QybxxeQnvlkf88ZMIRTTALJV@117471438Oqjfajryy 12th, 2022 11:00pmUnknownOmeprazole 20 mg Capsule,Delayed Release(Dr/Ec)Wfkosj83IECHDdpuw before upqescgku95273Ydqpmihma2021 11:00pmUnknownCarbidopa-Levodopa 25- 100 mg TabletDiscontinued1.5TABPOThree times ikxsm983212Tkyawpejw2021 11:00pmDecember 2023 8:08pmCholecalciferol (Vitamin D3) 125 mcg (5,000 unit) UxdebwyDvsfro415WYLDBRcypu26506Uxsqfaklp 12th, 2022 11:00pmUnknown Mirtazapine 7.5 mg TabletActive7.5MGPODaily at wejijvi78693Rkdgvrgjq2021 11:00pmUnknownMetoprolol Tartrate 37.5 mg AkbbnsIghytb58FOJDEhvfe mfxpo761067 November 23, 2021 11:00pmUnknownAtorvastatin 40 mg MhlixyDyovru36QNBJMpyzg at vmrshex03776Nugnncevw2021 11:00pmUnknownAcetaminophen 500 mg TabletActive 1000MGPOThree times wcnic062768Cquesclkj 12th, 2022 11:00pmUnknownWarfarin 2 MG fgxekuOidslnoizqch3GQDDRcecd5366Ednzsuuhv 13th, 2022 1:28pmDecember 2023 8:20pm1 tab daily on Mon, Tues, Wed, Fri, Sat, Sun 0.5 tab daily on ThursOxycodone 5 mg BjgqpbPrpnbqksctzj1KOUWHxcks 6 hours as needed for fvze0550Fuptwymcf 13th, 2022Decemb2023 8:12pmCompression fracture Back pain Dorsalgia, unspecified Immunizations Immunization Event Date Not Given Reason Dose Number 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 Number Reason(s) Given Vaccine Information Statement (VIS) Detail Administration Location influenza, unspecified formulation January Procedures Procedure Date Performed Status Urine Culture January 23, 2025 active Advance Directives Advance Directive Response Recorded Date/ Time Advance Directives No May 23 9:53am Insurance Providers Guarantor Shayy Barker Address [address] [place], [place] [id number] Info.Home Phone: Payer Group Member ID Coverage Type Subscriber Relationship to Subscriber Effective Date Expiration Date Medicare Rehab-IP Part A Retired Id: [id number] A Clark Id: [id number] [address] [place], [place] [address] Home Phone: Email: [email or web address] [email or web address] [employer] Id: [id number] A Clark Id: [id number] [address] [place], [place] [address] Home Phone: Email: [email or web address] [facility] [employer] Id: [id number] A Clark Id: [id number] [address] [place] [id number] Home Phone: Email: [email or web address] Encounters Encounter Location(s) Arrival/Admit Date Discharge/Departure Date Discharge/Departure Disposition Provider(s) Departed Referred -[facility] January 23, 2025 8:30am January 23, 2025 8:31am Discharged to home care or self care (routine discharge) Mitch Rodriguez MD Plan of Treatment Future Tests Future scheduled test information is unavailable Pending Tests Test Name Ordered Date Scheduled Date Urine Culture January 23, 2025 8:30am Future Visits Future appointment information is unavailable Future Procedures Procedure Name Ordered Date Scheduled Date Urine Culture January 23, 2025 1:02pm Novem 2024 8:30am Future Medications Future medication information is unavailable Patient Instructions Patient instructions are unavailable
--- OUTSIDE RECORDS SUMMARY | 2025-01-28 02:31 | XMS_ITS | CCD ---
Author Organization [facility] Care Team Providers Care Master Carpenter Name Role Phone Honey Rabago Primary Care [...] Admit Provider MD Jairo Benson Other Provider [phone] MD Oswaldo Almonte Other Provider MD Gaye Claier Attending Provider [phone] MD Alcides Moya Admit Provider MD Alcides Moya Attending Provider [phone] KORTNEY Mehta Other Provider Unavailable KORTNEY Hannah [...] Provider MD Damion Thapa Other Provider Cortney, FILM SOUND COORDINATOR-C Faustina Quiroga Other Provider MD Valente Lauren [...] Emergency Provider MD Enrrique Mota Admit Provider [phone] MD Jairo Benson Other Provider MD Oswaldo Almonte Other Provider MD Gaye Claire Attending Provider MD Alcides Moya Admit Provider MD Alcides Moya Attending Provider [phone] KORTNEY Mehta Other Provider Unavailable KORTNEY Hannah Other Provider Unavailable KORTNEY Dutton Other Provider Unavailable KORTNEY Garrett Other Provider Unavailable KORTNEY Smith Other Provider Unavailable KORTNEY Ayon Other Provider Unavailable MD Familia Villatoro Other Provider MD Misha Ziegler Other Provider Dials, EDUCATION REP Chery M Other Provider [phone] DO José Miguel Tellez Other Provider MD George Chan Other Provider DO Justice De Oliveira Other Provider MD Enrrique Mota Other Provider MD Rosa Maria Odell Other Provider Angeli ANP-BC Tonya Other Provider MD Juan Wallace Other Provider [phone] MD Jerson Walker Other Provider MD [...] Other Provider DO Sony Canela Other Provider [phone] HEIDI Jaimes Other Provider DO Lázaro Pratt Other Provider MD Corona Weathers Other Provider [phone] KORTNEY Terry Other Provider Unavailable DO Honey Rabago Attending Provider [phone] Honey Rabago DO Primary Care Provider DO Honey Rabago Primary Care Provider [phone] DO Honey Rabago Attending Provider [phone] HIMA, DR MÉNDEZ Admitting Unavailable VASCHAK, DR [...] Unavailable VaschaHoney chavarria DO Primary Care Provider [phone] Honey Rabago DO Primary Care Provider Hima LOPEZ, Honey Quiroga Primary Care Provider Whit ALMONTE, Juani P Unavailable AUDREY TORRES Attending Unavailable GLORIA PEREZ Referring Unavailable VASCHAK, HONEY ADHIKARI Primary Care Unavailab le EPHRAIM, GLORIA Attending Unavailable GLORIA PEREZ Referring Unavailable VASCHAK, HONEY ADHIKARI Primary Care Unavailab jaime PEREZ, GLORIA Attending Unavailable VASCHAK, HONEY ADHIKARI Primary Care Unavailab GLORIA Villeda Attending Unavailable VASCHAK, HONEY ADHIKARI Primary Care Unavailab le VaschaHoney chavarria DO [facility] Care Provider Brennen ALMONTE, Lillian Robert Emergency Provider [phone] Shakeel Jones MD Attending Provider [phone] Shakeel Jones Admitting Unavailable Shakeel Jones Attending Unavailable Honey Rabago Primary Care Unavailable Lillian Hutton Admitting Unavailable Lillian Hutton Attending Unavailable Vaskoki, Honey Primary Care Unavailable Lillian Hutton Admitting Unavailable Lillian Hutton Attending Unavailable Hima, Honey Primary Care Unavailable Vandana Orourke MD Primary Care Provider [phone] Whit LOPEZ Juani P Unavailable URBANO HUTTON Attending Unavailable SIXTO APONTE Attending Unavailable SIXTO APONTE Attending Unavailable MAC VILLASENOR Attending Unavailable HONEY RABAGO Referring Unavailable URBANO HUTTON Attending Unavailable MAC VILLASENOR Attending Unavailable HONEY RABAGO Referring Unavailable LIS PAEZ Attending Unavailable URBANO HUTTON Attending Unavailable MAC VILLASENOR Attending Unavailable Honey Rabago DO Primary Care Provider Whit LOPEZ Juani P Unavailable Honey Rabago DO Unavailable Honey Rabago DO Primary Care Provider Honey Rabago DO Unavailable NubiaLeslie sandoval MA Unavailable [phone] Juani Martinez DO Unavailable Allergies Allergy ClassificationReported Allergen(s)Allergy TypeDate of OnsetReaction(s) FacilityAminoketones (1 source)buPROPionDrug Gjuxxli84-46-4284RwcsjpccrleanEeqtpgprl [facility]trLate[facility] (1 source)LatexSubstance Klnkben81-33-9037DqebVtbxponof [facility] Opioid Agonists (1 source)HYDROcodoneDrug Ahgfvoi02-54-3751Vwqxkkp ReactionOhiohealth Grady Memorial Hospital Ctr (20 sources)Acetaminophen / HYDROcodone; Translations: [Vicodin]Drug Allergy [facility]Mad[facility] (20 sources)buPROPion; Translations: [BUPROPION]Drug Hkvbjxo56-10-6778Jebgfw Status Change, [facility] Work Phone: (20 sources)LatexPropensity to adverse fsikgxnlk07-34-2614Rhxxxsl, [facility] (20 sources)Acetaminophen / HYDROcodone; Translations: [HYDROCODONE-ACETAMINOPHEN]Drug Tlqyhpr04-84-1855Cygsid Status Change, [facility] (16 sources)Adhesive Tape; Translations: [ADHESIVE TAPE (ROSINS)]Allergy to useufkkcg27-35-9704[facility] Work Phone: (20 sources)Latex; Translations: [LATEX, NATURAL RUBBER]Drug Ujpqelu00-38-5507 [facility] (16 sources)rosuvastatin; Translations: [ROSUVASTATIN CALCIUM]Drug Allergy 47-89-1696[facility]nqq[facility] Work Phone: (20 sources)HYDROcodone; Translations: [hydrocodone]Drug Ibcfonf75-83-4201 [facility] (1 source)natural latex rubberDrug allergy (disorder)[facility] Repository (20 sources)Rosuvastatin calciumAllergy to knyvdjlsu54-19-6421LmmrkwmEZOT Healthcare (20 sources)OtherAllergy to -86-2447XxhxUIKY Healthcare (20 sources)atorvastatinDrug Dfoghrg45-96-2369Naaiesu ReactionNOMercy Hospital South, formerly [facility] (1 source)ARIPiprazoleDrug Rlzqwol85-69-4590Oumirftlikoupkfa-Vgrgdxb [facility] (1 source)HaloperidolDrug Zckewwg62-80-7879Mejdmtivkvfxzacb-Xdnwarj [facility] (1 source)MetoclopramideDrug Khkkroy96-97-5876Ybqphilneuxpuceu-Qedvfbq [facility] (1 source)ProchlorperazineDrug Przqsuc72-65-7112Xezunzyjzaecgghw-Ekkxkrx [facility] (1 source)PromethazineDrug Ghvhcul86-57-9287Afgrlkmxekbtsvjt-Fxpyytm [facility] (1 source)atorvastatinDrug Bymramd70-66-6429HhbaoihpsAultman [facility] Repository (1 source)buPROPionDrug Orrrpjb90-86-7202XlwvwewedAultman Orrville Hospital Repository (1 source)LatexDrug allergy (disorder)72-09-4910LkjddjxalAultman Orrville Hospital Repository Medications Current Medications MedicationDrug Class(es)DatesSig (Normalized)Sig (Original)acetaminophen 500 mg oral tablet (20 sources)Start: 11-11-2021 End: 23-17-5665ecow 1000 mg by mouth three times dailyAcetaminophen Active 1000 MG PO Three times daily 180 November 23, 2021 11:00pmStart: 09-54-2915anqi 1000 mg by mouth three times dailyAcetaminophen Active 1000 MG PO Three times daily November 11, 2021 1:48pmStart: 11-34-9994tsla 1000 mg by mouth three times dailyAcetaminophen Active 1000 MG PO Three times daily November 11, 2021 1:48pm Start: 11-10-2021 End: 34-87-0196iaqs 2 tablets by mouth three times dailyAcetaminophen 500 mg Tablet Active 1000 MG PO Three times daily November 23, 2021 11:00pm Start: 11-10-2021 End: 03-98-4387daza 1000 mg by mouth three times dailyAcetaminophen Discontinued 1000 MG PO Three times daily 0 November 09, 2021 11:00pm November 11, 2021 12:48pmStart: 11-04-2021 End: 32-76-1637dfyp 1 tablet by mouth three times daily as needed for pain Acetaminophen 650 mg Tablet Discontinued 650 MG PO Three times daily as needed for Pain November 03, 2021 11:00pm November 11, 2021 11:27am End: 42-37-7929xyxp 1 tablet by mouth every eight hours as neededacetaminophen (TYLENOL) 500 mg tablet Take 500 mg by mouth every 8 hours as needed. 01/18/2023: [facility] 03/06/2024 Discontinuedtake 1 tablet by mouth every six hours as neededAcetaminophen 500 MG 1 tablet as needed Orally every 6 hrs ActiveComment on above:Take 500 mg by mouth every 8 hours as needed. 01/18/2023: Pt takes 2 tabs daily per [facility] listacetaminophen 325 mg / oxyCODONE hydrochloride 5 mg oral tablet (2 sources)Opioid AgonistStart: 90-84-2563bdqc 0.5 tablet by mouth every four to six hours as needed for painOxycodone-Acetaminophen (Percocet) 5-325 mg tablet Active 0.5 TAB PO EVERY 4-6 HOURS as needed for Pain 14 March 04, 2024 End: 51-73-8597dfvKMBOOH-acetaminophen (PERCOCET) 5-325 mg tablet Take by mouth every 4 hours as needed for pain. 1/2 tablet q 4h as needed 03/06/2024 DiscontinuedAspir-81 (16 sources)Aspir-81 Activeaspirin 81 mg delayed release oral tablet (20 sources)Platelet Aggregation Inhibitor, Nonsteroidal Anti-inflammatory Drug Start: 01-18-2017 End: 99-88-9599xqby 1 tablet by mouth once dailyaspirin 81 MG EC tablet Indications: Hypertension, unspecified type Take 1 tablet (81 mg) by mouth Daily 100 tablet 3 11/17/2023 ActiveComment on above:Take 81 mg by mouth once daily. atorvastatin 40 mg oral tablet (20 sources)HMG-CoA Reductase InhibitorStart: 00-01-7772zqid 1 tablet by mouth once dailyatorvastatin (Lipitor) 40 MG tablet Indications: Mixed hyperlipidemia Take 1 tablet (40 mg) by mouth 1 (one) time each day at the same time 90 tablet 3 03/15/2024 ActiveStart: 11-04-2021 End: 91-24-0114cjin 1 tablet by mouth once dailyatorvastatin (Lipitor) 40 MG tablet Indications: Mixed hyperlipidemia (CMS/HCC) Take 1 tablet (40 mg) by mouth 1 (one) time each day at the same time 90 tablet 3 02/15/2023 ActiveStart: 54-79-8778ljmh 40 mg by mouth once daily at bedtimeAtorvastatin Active 40 MG PO Daily at bedtime November 04, 2021 12:00amStart: 04-22-2020 End: 33-56-8872thek 1 tablet by mouth once dailyatorvastatin (LIPITOR) 40 mg tablet TAKE 1 TABLET BY MOUTH ONCE DAILY FOR 90 DAYS 0 04/22/2020 09/29/2021 DiscontinuedComment on above:Take 40 mg by mouth once daily.TAKE 1 TABLET BY MOUTH ONCE DAILY FOR 90 DAYScapsaicin 0.08 mg/mg medicated patch (20 sources)Start: 94-15-3837Kptdtinjo-Cleansing Gel (Qutenza, 4 Patch,) 8 % patch [...] Acid Decarboxylation Inhibitor, Aromatic Amino Acid Start: 64-04-0076jwby 1.5 tablets by mouth once dailyCarbidopa-Levodopa 25-100 [...] 135 tablet 3 01/17/2024 ActiveStart: 04-13-2022 End: 89-16-7936pgtc 1.5 tablets by mouth in the morning, then take 1 tablet by mouth three times dailycarbidopa-levodopa (Sinemet) 25-100 MG tablet Indications: Parkinson's disease without dyskinesia or fluctuating manifestations (CMS/HCC) Take 1.5 tablets by mouth in the morning. Then 1 tablet TID. 135 tablet 3 11/17/2023 ActiveStart: 11-04-2021 End: 42-41-2795edlu 1.5 tablets by mouth three times dailyCarbidopa-Levodopa 25- 100 mg Tablet Discontinued 1.5 TAB PO Three times daily November 23, 2021 11:00pm March 04, 2024 8:08pmStart: 35-36-7215gnul 1.5 tablets by mouth three times dailyCarbidopa-Levodopa Active 1.5 TAB PO Three times daily November 04, 2021 12:00amStart: 02-03-2021 End: 18-96-3767nhqe 1.5 tablets by mouth three times dailycarbidopa-levodopa [...] 500 mg oral capsule (12 sources)Cephalosporin AntibacterialStart: 88-78-5957rckl 1 capsule by mouth every eight hoursCephalexin 500 mg Capsule Active 500 MG PO Every 8 hours 01 10March 04, 2024 12:00amStart: 09-28-2021 End: 19-15-0825trtt 1 capsule by mouth every eight hoursCephalexin 500 mg Capsule Discontinued 500 MG PO Q8H 01 10September 27, 2021 11:00pm November 04:00pmtake 1 tablet by mouth three times dailyCephalexin 500 mg tab Take 500 mg by mouth three times a day. Active End: 28-43-7357ykycZABFuv (KEFLEX) 500 mg capsule Take 500 mg by mouth. 1 cap x2 daily for 5 days 0 02/15/2022 Discontinued (Course of therapy completed)Comment on above:Take 500 mg by mouth. 1 cap x2 daily for 5 dayscholecalciferol 0.125 mg oral capsule (20 sources)Vitamin DStart: 14-10-7624yzcf 1 capsule by mouth once daily Cholecalciferol (Vitamin D3) 125 mcg (5,000 unit) Capsule Active 125 MCG PO Daily November 23, 2021 11:00pmStart: 11-04-2021 End: 93-92-8432kfic 1 tablet by mouth once daily in the morningCholecalciferol (Vitamin D3) (Vitamin D3) 125 mcg (5,000 unit) Tablet Discontinued 125 MCG PO Everymorning November 03, 2021 11:00pm November 25, 2021 3:32pmStart: 47-37-2025vubg 1 tablet by mouth once daily in [...] topical cream (17 sources)Azole AntifungalStart: 11-15-2023 End: 43-87-4599ydzlpnvgxceg (Lotrimin) 1 % cream Indications: Vaginal yeast infection Apply topically 2 (two) times a day Apply to vagina at bedtime for 10 days 15 g 1 11/17/2023 03/16/2024 ActiveContinuous Blood Gluc Sensor (FreeStyle Vivian 2 Sensor) [facility] [place] [place] (7 sources)Start: 22-33-7127Skspbcyrds Blood Gluc Sensor (FreeStyle Vivian 2 Sensor) [facility] [place] [place] Indications: Type 2 diabetes mellitus with other specified complication, 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 (CMS/HCC) apply 1 SENSOR to back OF UPPER ARM REMOVE AND REPLACE every 14 days 6 each 3 02/14/2023 ActiveContinuous Glucose Sensor (FreeStyle Vivian 2 Sensor) misc (20 sources)Start: 32-32-9188Ltwpzadiye Glucose Sensor (FreeStyle Vivian 2 Sensor) [facility] [place] [place] Indications: Type 2 diabetes mellitus with other specified complication, unspecified whether [facility] insulin use (HCC) 1 each by Other route Every 10 (ten) days 9 each 3 11/22/2023 ActiveStart: 91-83-4303Nacboqtlff Glucose Sensor (FreeStyle Vivian 2 Sensor) [facility] [place] [place] Indications: Type 2 diabetes mellitus with other specified complication, 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 ([facility]) 1 each by Other route Every 10 (ten) days 9 each 3 11/22/2023 ActiveDiclofenac (20 sources)Nonsteroidal Anti-inflammatory DrugStart: 70-33-7023phtmf 2 g topically twice daily as needed for painDiclofenac Sodium 1 % gel Active 2 GM TOPICAL Twice daily as needed for pain March 04, 2024 12:00am apply to single elbow, wrist or hand; for hand includes palm/fingers/back of handStart: 92-09-8164ppihlphipz sodium 1 % gel Apply 2 g topically 05/08/2022 ActiveStart: 65-48-0558aasqdufsle (VOLTAREN) 1 % topical gel 05/08/2022 Active End: 61-22-7757imvctihlgr sodium 10% topical gel (CPD) Apply to affected area. 0 01/20/2023 Discontinueddiclofenac sodium 10% topical gel (CPD) Apply to affected area. 0 Active End: 05-99-4134GGVKDVSAQY SODIUM TOPICAL Apply to affected area as needed. 0 02/15/2022 Discontinued (Course of therapy completed)DICLOFENAC SODIUM TOPICAL Apply to affected area as needed. 0 ActiveComment on above:Apply to affected area as needed.Apply to affected area.estradiol 0.1 mg/ml vaginal cream (20 sources)EstrogenStart: 65-80-6528Uywamviog 0.01 % (0.1 mg/gram) cream Active 1 APPLICATOR VAGINAL every week March 04, 2024 12:00am mondaystart: 12-20-2022 End: 95-56-8036qcdrudfko (Estrace) 0.1 MG/GM vaginal cream Indications: Genitourinary syndrome of menopause Apply to vagina 3x/week x 1month then 2x/week x 1 month then once weekly 42.5 g 3 11/17/2023 11/16/2024 ActiveComment on above:Use vaginally one time a week.fluconazole 150 mg oral tablet (2 sources)Azole AntifungalStart: 11-23-2023 End: 82-47-0136eqke 1 tablet by mouth oncefluconazole (Diflucan) 150 MG tablet Indications: Vaginal yeast infection Take 1 tablet (150 mg) bymouth 1 (one) time for 1 dose 2 tablet 11/23/2023 11/23/2023 Activefluocinolone acetonide 0.1 mg/ml topical oil (20 sources)CorticosteroidStart: 10-06-2023 End: 74-69-8456Vhamkktkmlhc Acetonide Scalp 0.01 % oil Indications: Other seborrheic dermatitis Apply to scalp at bedtime as needed for rough, scaly area 118.28 mL 10/06/2023 09/25/2024 DiscontinuedStart: 07-04-4496Xayicqyhehjh Acetonide Scalp 0.01 % oil Indications: Other seborrheic dermatitis Apply to scalp at bedtime as needed for rough, scaly area 118.28 mL 10/07/2022 Active Fluocinolone-Shower Cap 0.01 % oil by scalp route. ActiveComment on above:by scalp route.fluocinonide 0.5 mg/ml topical solution (20 sources)CorticosteroidStart: 10-06-2023 End: 53-79-8938huagyqlcpluv (Lidex) 0.05 % external solution Indications: Other seborrheic dermatitis Apply to affected areas on the scalp every day prn flares 60 mL 10/06/2023 09/25/2024 DiscontinuedStart: 64-80-4407shhoyafqtxcr (Lidex) 0.05 % external solution Indications: Other seborrheic dermatitis Apply to affe cted areas on the scalp every day prn flares 60 mL 10/07/2022 ActiveFREESTYLE VIVIAN 2 SENSOR kit (11 sources)Start: 54-37-5948LFMOUCOMA VIVIAN 2 SENSOR kit apply 1 SENSOR to back OF UPPER ARM REMOVE AND REPLACE every 14 days 01/25/2022 ActiveStart: 88-76-1864DURMCTCAB VIVIAN 2 SENSOR kit apply 1 SENSOR to back OF UPPER ARM REMOVE AND REPLACE every 14 days ActiveComment on above:apply 1 SENSOR to back OF UPPER ARM REMOVE AND REPLACE every 14 daysketoconazole 20 mg/ml medicated shampoo (20 sources)Azole AntifungalStart: 09-25-2024 End: 10-10-2623uspsxdorjvjk (NIZOral) 2 % cream Indications: Other seborrheic dermatitis Apply topically Daily Apply thin layer to affected areas on the face when flared, hold when clear, 30 day supply 60 g 09/25/2024 10/25/2024 Active Start: 94-39-6575Czlyfequdbwg 2 % shampoo Active 1 APPLIC TOPICAL every Tuesday, Tuesday, and Tuesday 12:00amStart: 10-06-2023 End: 90-52-7469cstoksgdihmf (NIZOral) 2 % shampoo Indications: Other seborrheic dermatitis Lather on scalp 2-3 x weekly, leave on 5 min before rinsing 120 mL 09/25/2024 ActiveStart: 39-66-3950onwxaorfsxuc (NIZOral) 2 % shampoo Indications: Other seborrheic dermatitis Lather on scalp 2-3 x weekly, leave on 5 min before rinsing 120 mL 10/07/2022 Active End: 01-28-9389nbnoefeirxlr (NIZORAL) 2 % shampoo Apply to affected area two times a week. ActiveComment on above:Apply 1 application to affected area as directed.Apply to affected area two times a week.levothyroxine sodium 0.075 mg oral tablet (20 sources)l-ThyroxineStart: 01-18-2017 End: 34-09-7825geic 1 tablet by mouth in the morninglevothyroxine [...] (20 sources)Antiarrhythmic, Amide Local AnestheticStart: 11-11-2021 End: 39-99-2394qnfce 1 dose topically once daily in the morningLidocaine (Lidocaine Pain Relief) 4 % Adhesive Patch,Medicated Active 1 PATCH TOPICAL Every 30 November 23, 2021 11:00pmStart: 65-65-5863sscxz 1 dose topically once daily in the morningLidocaine (Lidocaine Pain Relief) 4 % adhesive patch,medicated Active 1 PATCH TOPICAL Every morningAugus2021 1:51pmStart: 30-14-0976vxqok 1 dose topically once daily in the morningLidocaine (Lidocaine Pain Relief) 4 % adhesive patch,medicated Active 1 PATCH TOPICAL Every morningAugus2021 1:51pmStart: 11-10-2021 End: 72-66-4010yzrnq 1 dose topically once dailyLidocaine (Lidocaine Pain Relief) 4 % Adhesive Patch,Medicated Discontinued 1 PATCH TOPICAL Daily 0Augus2021 11:00pm November 11, 2021 12:51pmlidocaine HCL 4 % ptmd Apply to affected area once daily. ActivemetFORMIN hydrochloride 500 mg oral tablet (20 sources)BiguanideStart: 02-12-2022 End: 86-16-9388negc 1 tablet by mouth in the morningmetFORMIN (Glucophage) 500 MG tablet Indications: Type 2 diabetes mellitus with other specified comp lication, 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 (HCC) Take 1 tablet (500 mg) by mouth in the morning and 1 tablet (500 mg) before bedtime. 180 tablet 3 11/17/2023 ActiveStart: 37-17-1141gcok 50 mg by mouth twice dailyMetformin Active 50 MG PO Twice daily January 18, 2017 7:43amStart: 01-18-2017 End: 61-49-7561hrjz 2 tablets by mouth twice daily at mealtimeMetformin 500 mg Tablet Active 1000 MG PO Twice daily with meals 120 November 23, 2021 11:00pmStart: 01-18-2017 End: 49-78-4960mnbw 1000 mg by mouth twice daily at [...] oral tablet (20 sources)beta-Adrenergic BlockerStart: 09-21-2023 End: 57-87-7653wntdxpimru tartrate (Lopressor) 50 MG tablet Indications: Hypertension, unspecified type Take 1.5 tablets (75 mg) by mouth every 12 (twelve) hours 270 tablet 3 11/17/2023 ActiveStart: 49-25-7188bqgdkffhem tartrate (Lopressor) 50 MG tablet Indications: Hypertension, unspecified type (CMS/HCC) Take 1.5 tablets (75 mg) by mouth every 12 (twelve) hours 135 tablet 3 03/21/2023 ActiveStart: 36-11-5005mucp 1 tablet by mouth twice daily at mealtimemetoprolol tartrate, short acting, (LOPRESSOR) 50 mg tablet TAKE 1 & 1/2 (ONE & ONE-HALF) TABLETS BY MOUTH TWICE DAILY WITH FOOD 01/13/2022 ActiveStart: 13-90-2335kuxf 2 tablets by mouth twice dailyMetoprolol Tartrate 37.5 mg Tablet Active 75 MG PO Twice daily 120 November 23, 2021 11:00pmStart: 47-19-0526fdlx 75 mg by mouth twice dailyMetoprolol Tartrate Active 75 MG PO Twice daily 120 November 23, 2021 11:00pmStart: 08-43-0448eeeirbqmmr tartrate, short acting, (LOPRESSOR) 50 mg tablet twice daily. 1.5 tablets 2x daily 0 01/05/2018 ActiveStart: 01-18-2017 End: 98-21-3067Weasraavje Tartrate 50 MG tablet Discontinued 75 MG PO Twice daily January 18, 2017 12:00am November 25, 2021 3:31pmStart: 01-18-2017 End: 54-32-9603qhwf 75 mg by mouth twice dailyMetoprolol Tartrate [...] mg oral tablet (20 sources)Start: 11-10-2021 End: 43-86-5577rjhr 1 tablet by mouth at bedtimemirtazapine (Remeron) 7.5 MG tablet Indications: Anxiety Take 1 tablet (7.5 mg) by mouth at apivfyu89 tablet 3 11/17/2023 ActiveStart: 40-13-7874qqzt 7.5 mg by mouth once daily at bedtime Mirtazapine Active 7.5 MG PO Daily at bedtime 0 November 10, 2021 12:00amStart: 66-79-3479ajaq 7.5 mg by mouth once daily at bedtimeMirtazapine Active 7.5 MG PO Daily at bedtime 0 November 10, 2021 12:00amtake 1 tablet by mouth every twenty-four hoursMirtazapine 7.5 MG 1 tablet at bedtime Orally Once a day Active Comment on above:Take 7.5 mg by mouth daily at bedtime.MOUNJARO 7.5 mg/0.5 mL pen injector (1 source)Start: 53-47-1743SSUFCZBY 7.5 mg/0.5 mL pen injector Inject 7.5 [...] release oral capsule (20 sources)Proton Pump InhibitorStart: 12-41-0475kqyn 1 capsule by mouth once dailyomeprazole (PriLOSEC) [address] capsule Indications: Gastroesophageal reflux disease without esophagitis Take 1 capsule (20 mg) by mouth 1 (one) time each day at the same time 90 capsule 3 11/22/2023 ActiveStart: 94-92-6287dfqo 40 mg by mouth once dailyOmeprazole Active 40 MG PO Daily January 18, 2017 7:43am Start: 01-18-2017 End: 52-23-8574Bzbmoaievd 40 MG capsule,delayed release(DR/EC) Discontinued 20 MG PO Every morning January 18, 2017 12:00am November 25, 2021 3:31pmStart: 01-18-2017 End: 01-85-7514kinc 20 mg by mouth once daily in the morningOmeprazole Discontinued 20 MG PO Every morning January 18, 2017 12:00am November 25, 2021 3:31pmComment on above:20 mg once daily. polyethylene glycol 3350 40628 mg powder for oral solution (20 sources)Osmotic LaxativeStart: 11-10-2021 End: 11-35-5271Kfhpxrrmoyqo Glycol 3350 (Miralax) 17 gram Powder In Packet Active 17 GM PO Twice daily as needed for constipation 04 12November 23, 2021 11:00pmStart: 07-64-0979Meccswedtrbg Glycol 3350 (Miralax) 17 gram Powder In Packet Active 17 GM PO Twice daily November 10, 2021 12:00amStart: 11-10-2021 Polyethylene Glycol 3350 (Miralax) 17 gram Powder In Packet Active 17 GM PO Twice daily November 10, 2021 12:00am End: 82-54-7406cnkbkgnvctdm glycol, PEG, 3350 (MiraLax) 17 GM/SCOOP powder 1 (one) time each day at the same time ActiveComment on above:Take 17 g by mouth once daily.Take 17 g by mouth once daily. Dissolve dose in 4 - 8 ounces of liquid and take as directed.Polyethylene Glycol 3350 17 Grams (20 sources)Start: 39-73-1820Bruehtximane Glycol 3350 17 Grams as directed Orally Twice a day for 1 days Dec, ActiveStart: 47-74-2082Iobdknuydfbw Glycol 3350 17 Grams as directed Orally Once a day for 1 days Dec, Not-TakingStart: 09-51-8811Vaycq: 96-93-0897srcg 119 g by mouth twice daily Polyethylene Glycol 3350 17 Grams take 119 grams into each gatorade/pedilyte bottle Orally bid for 1 days Dec, ActivePreserVision/Lutein (16 sources)PreserVision/Lutein as directed Orally ActiveTirzepatide (1 source)Start: 53-27-7731Rfojitiwdsc (Mounjaro) 7.5 mg/0.5 mL pen injector Active 7.5 MG SUBCUT every week March 04, 2024 12:00am fridaysTirzepatide (Mounjaro) 2.5 MG/0.5ML solution pen-injector (10 sources)Start: 14-46-7003yekrvi 2.5 mg by subcutaneous injection every week Tirzepatide (Mounjaro) 2.5 MG/0.5ML solution pen-injector Indications: Type 2 diabetes mellitus with other specified complication, unspecified whether [facility] use (CMS/HCC) Inject 2.5 mg under the skin 1 (one) time per week 2 mL 3 11/17/2023 ActiveStart: 11-15-2023 End: 63-11-6910psslpi 2.5 mg by subcutaneous injection every weekTirzepatide (Mounjaro) 2.5 MG/0.5ML solution pen-injector Indications: Type 2 diabetes mellitus with other specified complication, unspecified whether [facility] use (CMS/HCC) Inject 2.5 mg under the skin 1 (one) time per week 2 mL 11/15/2023 11/17/2023 Discontinued (Reorder)Start: 32-64-9667neyyqw 2.5 mg by subcutaneous injection every weekTirzepatide (Mounjaro) 2.5 MG/0.5ML solution pen-injector Indications: Type 2 diabetes mellitus with other specified complication, unspecified whether [facility] use (CMS/HCC) Inject 2.5 mg under the skin 1 (one) time per week 2 mL 11/15/2023 ActiveTirzepatide (Mounjaro) 7.5 MG/0.5ML solution auto-injector (15 sources)Start: 10-49-3017wgjlcm 7.5 mg by subcutaneous injection every week Tirzepatide (Mounjaro) 7.5 MG/0.5ML solution auto-injector Indications: Type 2 diabetes mellitus with other specified complication, without long-term current use of insulin (HCC) Inject 7.5 mg under the skin 1 (one) time per week 6 mL 3 02/21/2024 ActiveStart: 06-77-6080ajxtus 7.5 mg by subcutaneous injection every weekTirzepatide (Mounjaro) 7.5 MG/0.5ML solution auto-injector Indications: Type 2 diabetes mellitus with other specified complication, without long-term current use of insulin (CMS/HCC) Inject 7.5 mg under the skin 1 (one) time per week 6 mL 3 02/21/2024 Activetriamcinolone acetonide 0.005 mg/mg topical ointment (20 sources)CorticosteroidStart: 11-23-2023 End: 34-89-3365duuftiejtesdx (Kenalog) 0.5 % ointment Indications: Atrophic vaginitis Apply topically 2 (two) times a day Use Goodrx coupon Use bid for 2 weeks to vagina 15 g 1 11/23/2023 11/22/2024 Zalizx75 hr venlafaxine 150 mg extended release oral capsule (20 sources)Serotonin and Norepinephrine Reuptake InhibitorStart: 02-15-2023 End: 27-44-4038nuca 1 capsule by mouth every twenty-four hours in the morning venlafaxine XR (Effexor XR) 150 MG 24 hr capsule Indications: Recurrent major depression in full remission Take 1 capsule (150 mg) by mouth in the morning. 90 capsule 3 11/17/2023 ActiveStart: 01-10-2023 End: 39-74-6989ocoj 1 tablet by mouth once dailyvenlafaxine (Effexor) 75 MG tablet Indications: Recurrent major depression in full remission Take 1tablet (75 mg) by mouth Daily 90 tablet 3 11/17/2023 ActiveStart: 01-10-2023 End: 03-69-5856OZWCXEPLILU ER 150 MG TABLET,EXTENDED RELEASE 24 HRStart: 01-20-2022 End: 20-09-5932debi 1 capsule by mouth every twenty-four hoursvenlafaxine ER (EFFEXOR XR) 75 mg 24 hr capsule Take 75 mg by mouth. 0 01/20/2022 01/20/2023 DiscontinuedStart: 54-46-3598xpwg 1 capsule by mouth once daily in the evening Venlafaxine 75 mg Capsule,Extended Release 24hr Active 75 MG PO Every evening November 11:00pmStart: 11-05-2021 End: 90-17-4150lgdf 1 capsule by mouth once daily in the morningvenlafaxine ER (EFFEXOR XR) 150 mg 24 hr capsule Take 150 mg by mouth every morning. 05/01/2023 ActiveStart: 40-16-8350joan 150 mg by mouth once daily in the morning Venlafaxine Active 150 MG PO Every morning November 05, 2021 12:00amStart: 16-59-6735ecww 75 mg by mouth once daily in the eveningVenlafaxine Active 75 MG PO Every evening November 05, 2021 12:00amStart: 11-05-2021 End: 31-73-3749yemd 1 tablet by mouth once dailyVenlafaxine 75 mg Tablet Discontinued 75 MG PO Daily after supper November 04, 2021 11:00pm November 05, 2021 12:44pmStart: 11-05-2021 End: 69-69-7581xjeh 1 tablet by mouth once daily in the eveningVenlafaxine 75 mg tablet extended release 24hr Discontinued 75 MG PO Every evening November 04, 2021 11:00pm November 25, 2021 3:31pmStart: 72-43-5392vcgu 75 mg by mouth twice dailyVenlafaxine Active 75 MG PO Twice daily January 18, 2017 7:43am Start: 01-18-2017 End: 51-16-8470mwbi 2 tablets by mouth once dailyVenlafaxine 75 MG tablet Discontinued 150 MG PO Daily January 18, 2017 12:00am November 05, 2021 1 2:37pmStart: 01-18-2017 End: 58-90-9005tjbt 150 mg by mouth once dailyVenlafaxine Discontinued 150 MG PO Daily January 18, 2017 12:00am November 05, 2021 12:37pm End: 25-92-1635djwjckidjnw ER (EFFEXOR XR) 150 mg 24 hr [...] mouth.Take 150 mg by mouth every morning.Vit C,R-Zn-Sarvh-Lutein-Zeaxan (Preservision Areds-2) 250-90-40-1 mg capsule (1 source)Start: 69-03-4516Kcs C,W-Qw-Ffhrl-Lutein-Zeaxan (Preservision Areds-2) 250-90-40-1 mg capsule Active 1 TAB PO Twice daily March 04, 2024 12:00am vit C/vit E ac/lut/copper/zinc (PRESERVISION LUTEIN ORAL) (14 sources)vit C/vit E ac/lut/copper/zinc (PRESERVISION LUTEIN ORAL) Take by mouth twice daily. Activevit C/vit E ac/lut/copper/zinc (PRESERVISION LUTEIN ORAL) Take by mouth twice daily. 0 ActiveComment on above:Take by mouth twice daily.vitamin b12 0.5 mg oral tablet (20 sources)Vitamin U60Yenig: 75-47-4040zldo 2 tablets by mouth once daily cyanocobalamin (VITAMIN B-12) 500 mcg tablet Take 2 tablets by mouth once daily. 02/15/2022 ActiveStart: 65-15-5903wddh 1 tablet by mouth once daily Cyanocobalamin (Vitamin B-12) 1,000 mcg Tablet Active 1000 MCG PO Daily November 23, 2021 11:00pmStart: 11-04-2021 End: 13-12-6736rret 1 tablet by mouth once dailyCyanocobalamin (Vitamin B-12) (Vitamin B-12) 2,000 mcg Tablet Extended Release Discontinued 2000 MCG PO Daily November 03, 2021 11:00pm November 25, 2021 3:32pmStart: 38-66-0052wocs 1 tablet by mouth once dailyCyanocobalamin (Vitamin B-12) (Vitamin B-12) 2,000 mcg Tablet Extended Release Active 2000 MCG PO Daily November 04, 2021 12:00am Start: 11-06-2020 End: 76-42-8666uoee 1 tablet by mouth once dailycyanocobalamin (VITAMIN [...] mg oral tablet (20 sources)Vitamin K AntagonistStart: 01-81-4598fjyo 3 mg by mouth once daily Warfarin 2 MG tablet Active 3 MG PO Daily March 04, 2024 12:00am 3mg , Tue, Tue 2m Sun, Min, Thur, SatStart: 01-25-2024 End: 30-82-4673tksirbmv (Coumadin) 3 MG tablet Indications: History of DVT (deep vein thrombosis) Take as directedper weekly INR report 90 tablet 3 01/25/2024 01/24/2025 ActiveStart: 02-11-2023 End: 50-36-7161nxeomocv (Coumadin) 4 MG tablet Indications: History of DVT (deep vein thrombosis) Take every . Pt takes Warfarin 2mg daily except 13 tablet 1 02/11/2023 11/17/2023 Discontinued (Reorder)Start: 46-07-5411hittuszg (COUMADIN) 4 mg tablet 06/15/2022 ActiveStart: 11-11-2021 End: 54-83-2332leaw 1 tablet by mouth onceWarfarin (Jantoven) 1 mg Tablet Discontinued 1 MG PO Once 0 November 10, 2021 11:00pm November 25, 2021 3:31pmStart: 62-99-7698cjkf 1 tablet by mouth onceWarfarin (Jantoven) 1 mg Tablet Active 1 MG PO Once 0 November 11, 2021 12:00amStart: 99-11-9214ahhq 1 tablet by mouth onceWarfarin (Jantoven) 1 mg Tablet Active 1 MG PO Once 0 November 11, 2021 12:00amStart: 01-18-2017 End: 18-66-9112yxbl 1 tablet by mouth once dailywarfarin (Coumadin) [...] oral capsule (9 sources)Vitamin CStart: 02-22-2017 End: 92-10-5089Zng Q-Z-Tuftmc-Zinc-Lutein (Preservision Lutein) 226 mg-200 unit -5 mg-0.8 mg Capsule Discontinued 1 TAB PO As Directed February 22, 2017 12:00am July 10, 2017 5:45pmtake 2 capsules by mouth every twenty-four hours PreserVision/Lutein - 2 capsules Orally daily Activebiotin 1 mg chewable tablet (20 sources)Start: 01-18-2017 End: 36-96-9977xrrz 1 tablet by mouth once dailyBiotin 1,000 mcg Tablet,Chewable Discontinued 1000 MCG PO Daily January 18, 2017 12:00am November 04, 2021 4:59pm End: 12-30-4254qvgk 1 capsule by mouth in the morningbiotin 5 MG capsule Take 5 mg by mouth in the morning. Activetake 1 tablet by mouth once dailyBiotin 10 MG 1 tablet Orally Once a day for 30 day(s) Not-TakingComment on above:Take 5 mg by mouth once daily.cefdinir 300 mg oral capsule (6 sources)Cephalosporin AntibacterialStart: 11-11-2021 End: 50-81-9109llzn 1 capsule by mouth twice dailyCefdinir 300 mg Capsule Discontinued 300 MG PO Twice daily 4 2 November 10, 2021 11:00pm November 25, 2021 3:31pmStart: 54-81-8912dqwd 300 mg by mouth twice dailyCefdinir Active 300 MG PO Twice daily 4 2 November 11, 2021 12:00amStart: 78-87-2127mqej 300 mg by mouth twice dailyCefdinir Active 300 MG PO Twice daily 4 2 November 11, 2021 12:00amcyclobenzaprine hydrochloride 5 mg oral tablet (11 sources)Muscle RelaxantStart: 10-19-2021 End: 13-45-1152qcmx 1 tablet by mouth three times daily as needed for muscle spasmsCyclobenzaprine 5 mg tablet Discontinued 5 MG PO Three times daily as needed for muscle spasm October 18, 2021 11:00pm November 04, 2021 5:00pmtake 1 tablet by mouth every twenty-four hoursdocusate sodium 50 mg / sennosides, longterm 8.6 mg oral tablet (6 sources)Start: 11-10-2021 End: 92-14-9262wsya 2 tablets by mouth twice dailySennosides-Docusate Sodium (Stool Softener-Stimulant Laxat) 8.6-50 mg Tablet Discontinued 2 TAB PO Twice daily 0 November 09, 2021 11:00pm November 25, 2021 3:31pmStart: 11-10-2021 take 2 tablets by mouth twice dailySennosides-Docusate Sodium (Stool Softener- Stimulant Laxat) 8.6-50 mg Tablet Active 2 TAB PO Twice daily 0 November 10, 2021 12:00amStart: 74-85-5642maml 2 tablets by mouth twice dailySennosides- Docusate Sodium (Stool Softener-Stimulant Laxat) 8.6-50 mg Tablet Active 2 TAB PO Twice daily 0 November 10, 2021 12:00amezetimibe 10 mg oral tablet (20 sources)Dietary Cholesterol Absorption InhibitorStart: 02-22-2017 End: 23-72-5260xvft 1 tablet by mouth once dailyEzetimibe (Zetia) 10 mg Tablet Discontinued 10 MG PO Daily February 22, 2017 12:00am July 10, 2017 5:44pm furosemide 20 mg oral tablet (20 sources)Loop DiureticStart: 03-01-2019 End: 01-85-8565upbv 1 tablet by mouth once dailyfurosemide (LASIX) 20 mg tablet Take 1 tablet by mouth once daily. 0 03/01/2019 02/15/2022 Discontinued (Discontinued by another Health Care Provider)Furosemide ActiveComment on above: Take 1 tablet by mouth once daily.gabapentin 300 mg oral capsule (7 sources)Anti-epileptic AgentStart: 01-26-2022 End: 11-78-0609xvwh 1 capsule by mouth once daily at bedtimegabapentin (NEURONTIN) 300 mg capsule Take 300 mg by mouth daily at bedtime. 0 01/26/2022 01/20/2023 Discontinued (Course of therapy completed)take 1 capsule by mouth every twenty-four hoursGabapentin 300 MG 1 capsule Orally Once a day Active Comment on above:Take 300 mg by mouth daily at bedtime.Lactobacillus acidophilus (4 sources) End: 44-23-8363Adztytszjyzrd acidophilus (PROBIOTIC ORAL) Take by mouth. 0 02/15/2022 Discontinued (Course of therapy completed)Lactobacillus acidophilus (PROBIOTIC ORAL) Take by mouth. 0 ActiveComment on above:Take by mouth. MEDICATION, NON-DATABASE (7 sources) End: 95-18-5959NFENUIMQUS, NON-DATABASE 750 mg two times a day. Antiacid extra strength 03/06/2024 DiscontinuedMEDICATION, NON-DATABASE 750 mg two times a day. Antiacid extra strength ActiveMEDICATION, NON-DATABASE 750 mg two times a day. Antiacid extra strength 0 ActiveComment on above:750 mg two times a day. Antiacid extra strengthMOUNJARO 5 mg/0.5 mL pen injector (1 source)Start: 01-18-2024 End: 02-87-9666dvpqmn 5 mg by subcutaneous injection every weekMOUNJARO 5 mg/0.5 mL pen injector INJECT 5MG SUBCUTANEOUSLY ONCE A WEEK 01/18/2024 03/06/2024 DiscontinuedNystatin (4 sources)Polyene Antifungal End: 27-77-0601VYPLWLRR ORAL Take by mouth. 0 02/15/2022 Discontinued (Course of therapy completed)NYSTATIN ORAL Take by mouth. 0 ActiveComment on above:Take by mouth.oxyCODONE hydrochloride 5 mg oral tablet (16 sources)Opioid AgonistStart: 11-10-2021 End: 59-82-4705oque 1 tablet by mouth every six hours as needed for pain Oxycodone 5 mg Tablet Discontinued 5 MG PO Every 6 hours as needed for pain 12 18November 24, 2021 March 04, 2024 8:12pmStart: 49-96-6002mrke 5 mg by mouth every six hoursOxycodone Active 5 MG PO Every 6 hours 0 November 10, 2021 Start: 07-20-9945hhqw 5 mg by mouth every six hoursOxycodone Active 5 MG PO Every 6 hours 0 November 10tart: 10-19-2021 End: 05-82-0537smxd 1 tablet by mouth three times daily as needed for pain Oxycodone (Roxicodone) 5 mg tablet Discontinued 5 MG PO Three times daily as needed for pain 7 3 October 19, 2021 November 04, 2021 5:03pmmicroencapsulated potassium chloride 10 meq extended release oral tablet (4 sources)Start: 11-21-2020 End: 37-88-4888timtpouoa chloride ER (K-DUR, KLOR-CON) 10 mEq tablet Take 10 mEq by mouth. Pt takes every other day 0 11/21/2020 02/15/2022 DiscontinuedComment on above:Take 10 mEq by mouth. Pt takes every other day pravastatin sodium 40 mg oral tablet (20 sources)HMG-CoA Reductase InhibitorStart: 01-18-2017 End: 84-73-2673idfl 1 tablet by mouth once dailyPravastatin 40 mg Tablet Discontinued 40 MG PO Daily January 18, 2017 12:00am November 04, 2021 5:12pm take 1 tablet by mouth once dailyPravastatin 10 mg one tab orally daily Active SITagliptin 50 mg oral tablet (20 sources)Dipeptidyl Peptidase 4 InhibitorStart: 05-02-2023 End: 56-75-7872iwmt 1 tablet by mouth once daily in the morningJANUVIA 50 mg tablet Take 50 mg by mouth every morning. 05/02/2023 03/06/2024 Discontinued Start: 01-20-2023 End: 67-66-2322ycri 0.5 tablet by mouth in the morningJanuvia 100 MG tablet Indications: Diabetic peripheral neuropathy associated with type 2 diabetes me llitus (CMS/HCC) Take 0.5 tablets (50 mg) by mouth in the morning. Take 50 mg by mouth in the morning.. 90 tablet 1 01/20/2023 11/15/2023 DiscontinuedStart: 06-12-2022 End: 69-18-3790RNFKJTE 100 mg tablet Take 50 mg by mouth once daily. 0 06/12/2022 06/23/2023 Discontinued End: 55-75-3807ryby 1 tablet by mouth once dailySITagliptin phosphate (JANUVIA) 50 mg tablet Take 50 mg by mouth once daily. 0 07/08/2022 Discontinuedtake 1 tablet by mouth every twenty-four hoursComment on above:Take 100 mg by mouth once daily.Take 50 mg by mouth once daily.Take 50 mg by mouth every morning. solifenacin succinate 5 mg oral tablet (20 sources)Cholinergic Muscarinic AntagonistStart: 02-22-2017 End: 73-23-5476suzs 1 tablet by mouth once dailySolifenacin (Vesicare) 5 mg Tablet Discontinued 5 MG PO Daily February 22, 2017 12:00am November 04, 2021 5:12pmVESIcare 5 MG Orally twice a day ActiveTirzepatide (Mounjaro) 5 MG/0.5ML solution auto-injector (4 sources)Start: 01-18-2024 End: 71-20-5566pgjbot 5 mg by subcutaneous injection every weekTirzepatide (Mounjaro) 5 MG/0.5ML solution auto-injector Indications: Type 2 diabetes mellitus withother specified complication, unspecified [facility] ([facility]/H[facility]) Inject 5 mg underthe skin 1 (one) time per week 2 mL 01/18/2024 02/21/2024 DiscontinuedStart: 91-08-2677qhsrtp 5 mg by subcutaneous injection every weekTirzepatide (Mounjaro) 5 MG/0.5ML solution auto-injector Indications: Type 2 diabetes mellitus withother specified complication, 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 (CMS/HCC) Inject 5 mg underthe skin 1 (one) time per week 2 mL 01/18/2024 Activetrospium chloride 20 mg oral tablet (7 sources)Cholinergic Muscarinic AntagonistStart: 07-10-2017 End: 46-20-2419eblh 1 tablet by mouth twice dailyTrospium 20 mg tablet Discontinued 20 MG PO Twice daily July 09, 2017 11:00pm November 04, 2021 5 :12pmVit C,O-Di-Sfdsf-Lutein-Zeaxan (Preservision Areds-2) 612-783-49-1 hh-djmg-tb-mg Capsule (7 sources)Start: 01-18-2017 End: 55-97-4035oras 1 tablet by mouth once daily at bedtimeVit C,X-Zu-Qydsu-Lutein-Zeaxan (Preservision Areds-2) 637-479-06-1 ao-oxqg-ww-mg Capsule Discontinued 1 TAB PO every day in the morning and at bedtime January 18, 2017 7:43am July 10, 2017 6:45pmStart: 01-18-2017 End: 38-65-2226uoub 1 tablet by mouth once daily at bedtimeVit C,H-Ky-Xvbpf-Lutein-Zeaxan (Preservision Areds-2) 586-991-72-1 cw-wtcf-zj-mg Capsule Discontinued 1 TAB PO every day in the morning and at bedtime January 18, 2017 12:00am July 10, 2017 5:45pmStart: 01-18-2017 End: 71-51-6637ujnh 1 tablet by mouth once daily at bedtimeVit C,U-Zs-Dngix-Lutein-Zeaxan (Preservision Areds-2) 783-890-93-1 ov-wcde-rr-mg Capsule Discontinued 1 TAB PO every day in the morning and at bedtime January 18, 2017 1:00am July 10, 2017 6:45pmVit C,T-Wv-Lbxbz-Lutein-Zeaxan (Preservision Areds-2) 250-90-40-1 mg Capsule (6 sources)Start: 11-04-2021 End: 72-58-3745Qie C,Z-Uf-Jhydm-Lutein-Zeaxan (Preservision Areds-2) 250-90-40-1 mg Capsule Discontinued 1 TAB PO Twice daily November 03, 2021 11:00pm November 25, 2021 3:32pmStart: 11-04-2021 End: 43-29-1169Eay C,I-Rp-Sedvk-Lutein-Zeaxan (Preservision Areds-2) 250-90-40-1 mg Capsule Discontinued 1 TAB PO Twice daily November 04, 2021 12:00am November 25, 2021 4:32pmStart: 86-70-1381Dxj C,W-Zx-Qekah-Lutein-Zeaxan (Preservision Areds-2) 250-90-40-1 mg Capsule Active 1 TAB PO Twice daily November 04, 2021 12:00amWarfarin - Pharmacy Dosing (Coumadin Pharmacy Dosing) (6 sources)Start: 11-10-2021 End: 21-86-7783Zqthxonx - Pharmacy Dosing (Coumadin Pharmacy Dosing) Discontinued 1 ea miscellaneous Once as needed 0 November 09, 2021 11:00pm November 25, 2021 3:32pmStart: 11-10-2021 End: 43-59-5267Lyufukkd - Pharmacy Dosing (Coumadin Pharmacy Dosing) Discontinued 1 ea miscellaneous Once 0 2021 11:00pm November 25, 2021 3:32pmStart: 11-10-2021 End: 83-19-6064Gvueueju - Pharmacy Dosing (Coumadin Pharmacy Dosing) Discontinued 1 ea miscellaneous Once 0 2021 12:00am November 25, 2021 4:32pmStart: 27-30-2326Ekgvlado - Pharmacy Dosing (Coumadin Pharmacy Dosing) Active 1 ea miscellaneous Once 0 October 12:00am Problems Active Problems Problem ClassificationProblemDateDocumented DateEpisodic/ChronicAbdominal pain (20 sources)Abdominal pain; Translations: [Unspecified abdominal pain]11-09-2021 EpisodicAcquired foot deformities (3 sources)Hammer toe; Translations: [Other hammer toe(s) (acquired), right foot]33-21-8428SckuiztWtyemahgdqvbkt/social admission (20 sources)Worried well; Translations: [Person with feared health complaint in whom no diagnosis is made]81-22-3241CylmshbmMioxzqw disorders (20 sources)Mixed anxiety and depressive disorder; Translations: [Other specified anxiety disorders]Onset: 89-87-8323KdtlwbvZhraqlcs atherosclerosis and other heart disease (20 sources)Coronary atherosclerosis; Translations: [Atherosclerotic heart disease of [place] coronary artery without angina pectoris]Onset: 12-20-2022 71-04-8019VwnaiwnDqqdnojzyl and other anemia (4 sources)Anemia; Translations: [Anemia, unspecified]90-35-9297Qtgyulmn Deficiency and other anemia (2 sources)Anemia, unspecified; Translations: [Anemia, unspecified]11-25-2021 EpisodicDiabetes mellitus with complications (20 sources)Neuropathy due to diabetes mellitus; Translations: [Type 2 diabetes mellitus with diabetic neuropathy, unspecified]Onset: ChronicDiabetes mellitus without complication (12 sources)Diabetes mellitus; Translations: [Type 2 diabetes mellitus without complications]67-00-8326TmytvlgIwjdwgqm of mouth; excluding dental (1 source)Excessive salivation; Translations: [Disturbances of salivary secretion]83-62-8527KwoxortcYlwdliapz of lipid metabolism (20 sources)Hyperlipidemia; Translations: [Hyperlipidemia, unspecified]Onset: 003263-55-0479UuhieifN Codes: Fall (6 sources)Fall; Translations: [Unspecified fall, initial encounter]11-12-2021 EpisodicEsophageal disorders (20 sources)Esophageal dysmotility; Translations: [Dyskinesia of esophagus] Onset: 996357-77-2858OidpvogBydjpoomv hypertension (10 sources)Hypertensive disorder; Translations: [Essential (primary) hypertension]64-38-5882TrnqzszGgeigpstfyjmv symptoms and ill-defined conditions (20 sources)Urge incontinence of urine; Translations: [Urge incontinence]Onset: 394857-29-7272WuemsnqHxdnzmbqxjccp symptoms and ill-defined conditions (4 sources)Frequency of micturition; Translations: [FREQUENCY OF MICTURITION] Onset: 79-42-7073UfnqszrvMgoudzrg; including migraine (20 sources)Episodic paroxysmal hemicrania; Translations: [Episodic paroxysmal hemicrania, not intractable]Onset: 497277-78-7905LnzznnxHokqguxmeck (20 sources)Hemorrhoids; Translations: [Unspecified hemorrhoids]EpisodicImmunity disorders (2 sources)Secondary immune deficiency disorder; Translations: [Immunodeficiency due to conditions classified elsewhere (CMS/[facility])]02-75-7878KfsbuwcPnmgjji and fatigue (1 source)Fatigue; Translations: [Other fatigue]EpisodicMenopausal disorders (20 sources)Atrophic vaginitis; Translations: [Postmenopausal atrophic vaginitis]Onset: 535106-89-5173KrdfhabFqjb disorders (20 sources)Depressive disorder; Translations: [Depression]Onset: 12-20-2022 55-27-2107PfefsngTvhhwrm (9 sources)Onychomycosis; Translations: [Tinea unguium]15-88-1088Fypsxzsc Nutritional deficiencies (20 sources)Vitamin D deficiency; Translations: [Vitamin D deficiency, unspecified]Onset: 843208-96-2532HckrocqQyloixvedpsmvg (20 sources)Osteoarthritis; Translations: [Osteoarthrosis, unspecified whether generalized or localized, lower leg]Onset: 296212-59-5811Ovegydb Osteoporosis (20 sources)Osteoporosis; Translations: [Age-related osteoporosis without current pathological fracture]Onset: 457604-69-1075AaduyruTjckd aftercare (13 sources)Encounter for therapeutic drug level monitoring; Translations: [Medication monitoring encounter Z51.81]Onset: 12-10-2020 Resolved: 72-69-6855WxtivxenKinqt and unspecified benign neoplasm (20 sources)Benign neoplasm of cerebral meninges; Translations: [Benign neoplasm of cerebral meninges]Onset: 755513-18-6640QqjsevvStekp circulatory disease (2 sources)Spider nevus; Translations: [Nevus, non-neoplastic]26-52-6560Fgrrorvr Other connective tissue disease (4 sources)Repeated falls; Translations: [History of fall]43-07-4960Ffkqbwnk Other connective tissue disease (3 sources)Pain in both feet; Translations: [Pain in right foot]02-16-2024 EpisodicOther fractures (14 sources)Compression fracture ; Translations: [Compression fracture] 43-24-3106IvfuevjbKwmlt fractures (1 source)Compression fracture of lumbar spine; Translations: [Collapsed vertebra, not elsewhere classified, lumbar region, initial encounter for fracture]02-32-9312NtgwvmndFwldw gastrointestinal disorders (20 sources)Dysphagia; Translations: [Dysphagia, unspecified]61-45-5794Bluwwkpj Other gastrointestinal disorders (1 source)Dysphagia, unspecified; Translations: [Dysphagia]EpisodicOther hereditary and degenerative nervous system conditions (20 sources)Impaired cognition; Translations: [Mild cognitive impairment, so stated]Onset: 200795-80-0050GxaqsmkAwpcj inflammatory condition of skin (2 sources)Seborrheic dermatitis; Translations: [Other seborrheic dermatitis] 99-26-1521KaixmotfPxldi injuries and conditions due to external causes (7 sources)Contusion; Translations: [Other injury of unspecified body region, initial encounter]60-69-4279FjnfmtgxOhxnq injuries and conditions due to external causes (1 source)Injury of head; Translations: [Unspecified injury of head, initial encounter]96-84-0146NrkenbecHfspz lower respiratory disease (20 sources)Fibrosis of lung; Translations: [Pulmonary fibrosis, unspecified] Onset: 905730-92-3161RtpbqigDjabm nervous system disorders (4 sources)Neuropathy; Translations: [Polyneuropathy, unspecified]02-16-2024 ChronicOther nervous system disorders (1 source)Unresponsive ; Translations: [Other symptoms and signs involving cognitive functions and awareness]EpisodicOther nutritional; endocrine; and metabolic disorders (20 sources)Body mass index 40+ - severely obese; Translations: [Body mass index (BMI) 40.0-44.9, adult]ChronicOther nutritional; endocrine; and metabolic disorders (8 sources)Obese class I; Translations: [Obesity, unspecified]Onset: 07-08-2022 79-91-7439NvdapypXjzzg nutritional; endocrine; and metabolic disorders (20 sources)Morbid obesity; Translations: [Morbid (severe) obesity due to excess calories]Onset: 711836-77-0442KnkdytsDcixg skin disorders (2 sources)Lentiginosis; Translations: [Other melanin hyperpigmentation] 34-31-4930InoayljzIdyod skin disorders (2 sources)Seborrheic keratosis; Translations: [Other seborrheic keratosis] 01-64-7785TlgxncpeNrablkefl`s disease (20 sources)Parkinson's disease; Translations: [Parkinson's disease]Onset: 65-91-7333IjwddlfDjmgbytzf`s disease (1 source)Parkinson`s disease; Translations: [Parkinson's disease without dyskinesia, with fluctuating manifestations (HCC)]Onset: 69-31-4532Ffbxnbynig and visceral atherosclerosis (20 sources)Peripheral vascular disease; Translations: [Peripheral vascular disease, unspecified]Onset: 062640-31-4755OcjyfrgWgupmctc codes; unclassified (1 source)Daytime somnolence; Translations: [Other hypersomnia]ChronicResidual codes; unclassified (4 sources)Obstructive sleep apnea (adult) (pediatric); Translations: [OBSTRUCTIVE SLEEP APNEA]Onset: 52-22-8269SsceobeWfokdltb codes; unclassified (4 sources)Sleep apnea, unspecified; Translations: [SLEEP APNEA UNSPECIFIED] Onset: 77-88-1981LyrixaxXadjdcyd codes; unclassified (20 sources)Sleep apnea; Translations: [Sleep apnea, unspecified]Onset: 099211-79-1068BzxtnjiToeicjsa codes; unclassified (20 sources)Obstructive sleep apnea syndrome; Translations: [Obstructive sleep apnea (adult) (pediatric)]Onset: 681288-94-9581WtdweltExzwiexb codes; unclassified (20 sources)Hypersomnia; Translations: [Hypersomnia, unspecified]Onset: 736140-38-1776YnyjgdaZybhvurb codes; unclassified (4 sources)Altered mental status, unspecified; Translations: [ALTERED MENTAL STATUS UNSPECIFIED]Onset: 05-44-2839QspdysroJkpiaal detachments; defects; vascular occlusion; and retinopathy (20 sources)Age related macular degeneration; Translations: [Unspecified macular degeneration]Onset: 929378-05-2328GjtfeafSwvsqxsrtwa; intervertebral disc disorders; other back problems (20 sources)Backache; Translations: [Dorsalgia, unspecified]23-82-8629Ixekvhnt Thyroid disorders (20 sources)Hypothyroidism; Translations: [Hypothyroidism, unspecified]Onset: 507955-07-9739JuiayscHqugjdcwwqrs (1 source)NO MNHE01-06-8489Ibenwprxejeb (1 source)Low back pain, unspecified; Translations: [Low back pain, unspecified] Onset: 06-66-2796Vcetzpyudxul (1 source)Other low back pain; Translations: [Other low back pain]Onset: 02-26-2024 Past or Other Problems Problem ClassificationProblemDateDocumented DateEpisodic/ChronicCalculus of urinary tract (20 sources)History of calculus of kidney; Translations: [Personal history of urinary calculi]Onset: 953234-54-4815RkffitvbOzfcocjoucu and hemorrhagic disorders (20 sources)Acquired coagulation factor inhibitor disorder; Translations: [Other hemorrhagic disorder due to intrinsic circulating anticoagulants, antibodies, or inhibitors]Onset: 09-29-2020 Resolved: 684306-49-8051ZtsofxqWtepsghtshway and screening for infectious disease (20 sources)Needs influenza immunization; Translations: [Encounter for immunization]Onset: 767585-30-6420KeniqfgnXkxxyuirurb deficiencies (2 sources)Cobalamin deficiency; Translations: [Deficiency of other specified B group vitamins]02-02-3250NseigyqwVhlim aftercare (20 sources)Long-term current use of anticoagulant; Translations: [intermodal dispatcher (current) use of anticoagulants]Onset: 308377-79-5016RzibkvbuVgdcg aftercare (12 sources)intermodal dispatcher (current) use of anticoagulants; Translations: [Long-term (current) use of anticoagulants]Onset: 185119-73-3921LytoisvhRakev aftercare (20 sources)Anticoagulant effect; Translations: [penitentiary (current) use of anticoagulants]Onset: 306868-47-6969JzgmtstuEvchv connective tissue disease (20 sources)Recurrent falls ; Translations: [Repeated falls]Onset: 05-21-2020 Resolved: 350048-33-2103NvbnyncgEmqts diseases of veins and lymphatics (20 sources)Peripheral venous insufficiency; Translations: [Venous insufficiency (chronic) (peripheral)]Onset: 209134-41-3980GnjuvqiiPpeja gastrointestinal disorders (20 sources)Esophageal dysphagia; Translations: [Other dysphagia]Onset: 11-01-2016 Resolved: 755686-00-6804TocgtburVomdu gastrointestinal disorders (20 sources)Incontinence of feces; Translations: [Full incontinence of feces] Onset: 06-19-2019 Resolved: 629821-35-3628XwknyjgdDpxti lower respiratory disease (20 sources)Snoring; Translations: [Snoring]Onset: 061813-72-8646Unurhwjk Phlebitis; thrombophlebitis and thromboembolism (20 sources)Acute embolism and thrombosis of unspecified deep veins of unspecified lower extremity; Translations: [H/O: Deep vein thrombosis]Onset: 100074-56-2835FxmovbnwMejwautc codes; unclassified (20 sources)Inadequate sleep hygiene; Translations: [Inadequate sleep hygiene] Onset: 593875-65-5048ZvhqjmukAshelptx codes; unclassified (20 sources)Amnesia; Translations: [Other amnesia]Onset: EpisodicUrinary tract infections (20 sources)Urinary tract infectious disease; Translations: [Urinary tract infection, site not specified]Onset: 842277-77-1785Satwndvs Results Test NameValueInterpretationReference RangeFacilityTBH UA (CLEAN/CATCH) BLEND TECHNICIAN/MICRO IF IND.on 50-41-1356TZYHSRTKV URINENegativeNEGATIVENOCT Healthcare BLOOD URINEMODERATEAbnormalNEGATIVENOMS HealthcareClarity (U)CLOUDYAbnormalCLEAR NOMS HealthcareColor (U)YELLOWYELLOWNOCT HealthcareGLUCOSE URINE UA250 mg/dL AbnormalNEGATIVENOMS HealthcareInterpretation and review of laboratory results AbnormalNOMS HealthcareKetones Ql (U)TRACEAbnormalNEGATIVE mg/dLNOCT Healthcare Leukocyte esterase Test strip Ql (U)LARGEAbnormalNEGATIVENOMS HealthcareNITRITE URINEPositiveAbnormalNEGATIVENOCT HealthcarepH (U)6.0 [pH]5.0 - 9.0NOCT HealthcareProtein (U) [Mass/Vol]100 mg/dLAbnormalNEG/TRACENOMS Healthcare SPECIFIC GRAVITY URINE1.0201.005 - 1.025NOCT HealthcareURINE MICROSCOPIC INDICATEDYESNOMS HealthcareUROBILINOGEN URINE0.2 EU/dL0.2 - 1.0 EU/dLNOCT HealthcareBANNER HEART HOSPITALAN HEALTH ASSOC[facility]ATES DROP OFF CLINISYNCNOMS HealthcareALL CBC WITH AUTO DIFFon 16-66-8341SJWWNZEJS ABSOLUTE AUTO0.0NOCT HealthcareBasophils/100 WBC (Bld)0.3 %0.2 - 2.0 %[facility] Eosinophils/100 WBC (Bld)0.2 %Low0.9 - 7.0 %[facility] Health ServicesErythrocyte distribution width (RBC) [Ratio]16.5 %High11.0 - 15.0 %[facility] ServicesHematocrit (Bld) [Volume fraction]38.9 %36.0 - 48.0 %[facility] ServicesHemoglobin (Bld) [Mass/Vol]12.0 g/dL12.0 - 16.0 g/dLSaint Francis Hospital & Health ServicesIMMATURE GRANULOCYTES ABS AUTO 0.04HighNOMercy Hospital South, formerly St. Anthony's Medical CenterImmature granulocytes/100 WBC (Bld)0.3 %0.0 - 0.5 %[facility] Health ServicesInterpretation and review of laboratory resultsAbnormalSaint [facility] Hospital & Health Services LYMPHOCYTES ABSOLUTE AUTO1.6NOMercy Hospital South, formerly St. Anthony's Medical CenterLymphocytes/100 WBC (Bld)13.4 %Low 20.5 - 60.0 %[facility] (RBC) [Entitic mass]28.4 pg26.7 - 34.0 pgPhelps HealthHC (RBC) [Mass/Vol]30.8 g/dL29.9 - 35.2 g/dLPhelps HealthV (RBC) [Entitic vol]92.2 fL81.0 - 99.0 fLSaint Francis Hospital & Health ServicesMONOCYTES ABSOLUTE AUTO1.1High [facility] ServicesMonocytes/100 WBC (Bld)9.0 %1.7 - 12.0 %[facility] NEUTROPHILS ABSOLUTE AUTO8.9HighSaint Francis Hospital & Health ServicesNeutrophils/100 WBC (Bld)76.8 % High43.0 - 75.0 %[facility] Health ServicesPlatelet mean volume (Bld) [Entitic vol]10.9 fL 9.5 - 13.5 fLSaint Francis Hospital & Health ServicesTBH EO #0.0NOMS [facility] Medical CenterTB CZB310ZSIMMercy Hospital South, formerly [facility] TB RBC4.22NONorthwest Medical Center WBC11.6HighSaint Francis Hospital & Health ServicesCLINISYNCNProgress [facility] ALL PROTIME/INRon 88-18-5140Coyrciwioqmjpg and review of laboratory results AbnormalNOMercy Hospital South, formerly St. Anthony's Medical CenterMLR INR1.2[facility] HealthcareMLR PROTHROMBIN TIME15.2HighSaint Francis Hospital & Health ServicesCALL doctor L9773 tel. [phone], FAX: [phone] CALL doctor L9755 tel. [phone], FAX: [phone] CLINISYNCNOMS HealthcareProthrombin Timeon 03-69-8772WRO Coag (PPP) [Relative time]1.2 {INR}[facility] HospitalComment on above:Order Comment: CALL doctor L9755 tel. [phone], FAX: [phone] CALL doctor L9755 tel. [phone], FAX: [phone] By: #### PT #### [facility] [address] [place] [address] RN Coag (PPP) [Time]15.2 sCritically high12.3-14.9[facility] CenterComment on above:Order Comment: CALL doctor L9Anne5 tel. [phone], FAX: [phone] CALL doctor L9[facility] tel. [phone], FAX: [phone] By: #### PT #### [facility] [address] [place] [address] GYE With Platelet and Differentialon 54-21-0233Kmowzjufb (Bld) [#/Vol]0.0 10*3/uLNormal0.0-0.2MArkansas Valley Regional Medical CenterComment on above: Order Comment: CALL doctor L9755 tel. [phone], FAX [phone] CALL doctor L975 tel. [phone], FAX [phone] By: #### CBCWD #### [facility] [address] [place] [address] Fqglnlcvy/100 WBC (Bld)0.2 %[facility] Comment on above:Order Comment: CALL doctor L9755 tel. [phone], FAX [phone] CALL doctor L9[facility] tel. [phone], FAX [phone] By: #### CBCWD #### [facility] [address] [place] [address] Lcsffzudflz (Bld) [#/Vol]0.2 10*3/uLNormal0.0-0.7[facility] CenterComment on above:Order Comment: CALL doctor L9755 tel. [phone], FAX [phone] CALL doctor L9755 tel. [phone], FAX [phone] By: #### CBCWD #### [facility] [address] [place] [address] Zzatixivbdt/100 WBC (Bld)1.8 %NormalSt. Mary-Corwin Medical Center Comment on above:Order Comment: CALL doctor L9755 tel. [phone], FAX [phone] CALL doctor L9755 tel. [phone], FAX [phone] By: #### CBCWD #### [facility] [address] [place] [address] Qvsntkqprdn distribution width (RBC) [Ratio]15.7 %Critically high 11.5-14.5St[facility] Medical CenterComment on above:Order Comment: CALL doctor L9755 tel. [phone], FAX [phone] CALL doctor L9755 tel. [phone], FAX [phone] By: #### CBCWD #### [facility] [address] [place] [address] Mpervybvwd (Bld) [Volume fraction]36.9 %Low37.0-47.0[facility] Medical CenterComment on above:Order Comment: CALL doctor L9755 tel. [phone], FAX [phone] CALL doctor L9755 tel. [phone], FAX [phone] By: #### CBCWD #### [facility] [address] [place] [address] Ywstikffck (Bld) [Mass/Vol]12.2 g/gGUldclw49.0-16.0St[facility] Medical CenterComment on above:Order Comment: CALL doctor L9755 tel. [phone], FAX [phone] CALL doctor L9755 tel. [phone], FAX [phone] By: #### CBCWD #### [facility] [address] [place] [address] Lccdokptkvf (Bld) [#/Vol]1.9 10*3/uLNormal1.0-4.8St[facility] CenterComment on above:Order Comment: CALL doctor L9755 tel. [phone], FAX [phone] CALL doctor L9755 tel. [phone], FAX [phone] By: #### CBCWD #### [facility] [address] [place] [address] Rruhxfnmyit/100 WBC (Bld)20.9 %NormalSt. Mary-Corwin Medical Center Comment on above:Order Comment: CALL doctor L9755 tel. [phone], FAX [phone] CALL doctor L9755 tel. [phone], FAX [phone] By: #### CBCWD #### [facility] [address] [place] [address] IEA (RBC) [Entitic mass]31.1 nqDnahju36.0-31.3MArkansas Valley Regional Medical CenterComment on above:Order Comment: CALL doctor L9755 tel. [phone], FAX [phone] CALL doctor L9755 tel. [phone], FAX [phone] By: #### CBCWD #### [facility] [address] [place] [address] GIUG00.1 %Tevdsu02.0-37.0[facility] CenterComment on above:Order Comment: CALL doctor L9755 tel. [phone], FAX [phone] CALL doctor L9755 tel. [phone], FAX [phone] By: #### CBCWD #### [facility] [address] [place] [address] ASV (RBC) [Entitic vol]94.1 tIZxrgkp28.4-94.8St[facility] Medical CenterComment on above:Order Comment: CALL doctor L9755 tel. [phone], FAX [phone] CALL doctor L9755 tel. [phone], FAX [phone] By: #### CBCWD #### [facility] [address] [place] [address] Xwpdodorr (Bld) [#/Vol]0.8 10*3/uLNormal0.2-0.8St. [facility] Medical CenterComment on above:Order Comment: CALL doctor L9755 tel. [phone], FAX [phone] CALL doctor L9755 tel. [phone], FAX [phone] By: #### CBCWD #### [facility] [address] [place] [address] Dwocyhomj/100 WBC (Bld)8.1 %[facility] Comment on above:Order Comment: CALL doctor L9755 tel. [phone], FAX [phone] CALL doctor L9755 tel. [phone], FAX [phone] By: #### CBCWD #### [facility] [address] [place] [address] Qlatacdegyc (Bld) [#/Vol]6.3 10*3/uLNormal1.4-6.5St. [facility] Medical CenterComment on above:Order Comment: CALL doctor L9755 tel. [phone], FAX [phone] CALL doctor L9755 tel. [phone], FAX [phone] By: #### CBCWD #### [facility] [address] [place] [address] Cljcpddnlxn/100 WBC (Bld)68.6 %[facility] Comment on above:Order Comment: CALL doctor L9755 tel. [phone], FAX [phone] CALL doctor L9755 tel. [phone], FAX [phone] By: #### CBCWD #### [facility] [address] [place] [address] Flppqxycm (Bld) [#/Vol]195 10*3/tWWdaxnt755-739DcspsSt. Mary-Corwin Medical CenterComment on above:Order Comment: CALL doctor L9755 tel. [phone], FAX [phone] CALL doctor L9755 tel. [phone], FAX [phone] By: #### CBCWD #### [facility] [address] [place] [address] KBM (Bld) [#/Vol]3.92 10*6/uLLow4.20-5.40St[facility] Medical CenterComment on above:Order Comment: CALL doctor L9755 tel. [phone], FAX [phone] CALL doctor L9755 tel. [phone], FAX [phone] By: #### CBCWD #### [facility] [address] [place] [address] NBD (Bld) [#/Vol]9.2 10*3/uLNormal4.8-10.8St[facility] CenterComment on above:Order Comment: CALL doctor L9755 tel. [phone], FAX [phone] CALL doctor L9755 tel. [phone], FAX [phone] By: #### CBCWD #### [facility] [address] [place] [address] Zxjruecrcopyk Metabolic Panelon 19-12-9307Ybcxxza [Mass/Vol]3.4 g/dL Low3.5-4.6MArkansas Valley Regional Medical CenterComment on above:Order Comment: CALL doctor L9755 tel. [phone], FAX [phone] CALL doctor L9755 tel. [phone], FAX [phone] By: #### CMP #### [facility] [address] [place] [address] RVM [Catalytic activity/Vol]96 U/CVxrfld95-742TzqpdSt. Mary-Corwin Medical CenterComment on above:Order Comment: CALL doctor L9755 tel. [phone], FAX [phone] CALL doctor L9755 tel. [phone], FAX [phone] By: #### CMP #### [facility] [address] [place] [address] IUJ [Catalytic activity/Vol]12 U/LNormal0-33St. [facility] CenterComment on above:Order Comment: CALL doctor L9755 tel. [phone], FAX [phone] CALL doctor L9755 tel. [phone], FAX [phone] By: #### CMP #### [facility] [address] [place] [address] Sdggi gap [Moles/Vol]12 mmol/LNormal9-15St[facility] CenterComment on above:Order Comment: CALL doctor L9755 tel. [phone], FAX [phone] CALL doctor L9755 tel. [phone], FAX [phone] By: #### CMP #### [facility] [address] [place] [address] ROO [Catalytic activity/Vol]32 U/LNormal0-35St. [facility] CenterComment on above:Order Comment: CALL doctor L9755 tel. [phone], FAX [phone] CALL doctor L9755 tel. [phone], FAX [phone] By: #### CMP #### [facility] [address] [place] [address] Fztozxvqg [Mass/Vol]0.7 mg/dLNormal0.2-0.7St. [facility] CenterComment on above:Order Comment: CALL doctor L9755 tel. [phone], FAX [phone] CALL doctor L9755 tel. [phone], FAX [phone] By: #### CMP #### [facility] [address] [place] [address] Zvyjrcl [Mass/Vol]8.8 mg/dLNormal8.5-9.9St[facility] CenterComment on above:Order Comment: CALL doctor L9755 tel. [phone], FAX [phone] CALL doctor L9755 tel. [phone], FAX [phone] By: #### CMP #### [facility] [address] [place] [address] Fzjqzpvo [Moles/Vol]96 mmol/PEubzdy85-527PitetSt. Mary-Corwin Medical CenterComment on above:Order Comment: CALL doctor L9755 tel. [phone], FAX [phone] CALL doctor L9755 tel. [phone], FAX [phone] By: #### CMP #### [facility] [address] [place] [address] BM5 [Moles/Vol]26 mmol/KCcynsl28-65LlejwSt. Mary-Corwin Medical Center Comment on above:Order Comment: CALL doctor L9755 tel. [phone], FAX [phone] CALL doctor L9755 tel. [phone], FAX [phone] By: #### CMP #### [facility] [address] [place] [address] Rodewqzarg [Mass/Vol]1.06 mg/dLCritically high0.50-0.90St. [facility] CenterComment on above:Order Comment: CALL doctor L9755 tel. [phone], FAX [phone] CALL doctor L9755 tel. [phone], FAX [phone] By: #### CMP #### [facility] [address] [place] [address] ATH67.2Low>60St[facility] CenterComment on above:Order Comment: CALL doctor L9755 tel. [phone], FAX [phone] CALL doctor L9755 tel. [phone], FAX [phone] Comment: Pediatric calculator link https://www.kidney.org/professionals/kdoqi/gfr_calculatorped Effective Dec [...] renal tubular secretion.Performed By: #### CMP #### [facility] [address] [place] [address] Bxyfjnqy (S) [Mass/Vol]2.9 g/dLNormal2.3-3.5St[facility] CenterComment on above:Order Comment: CALL doctor L9755 tel. [phone], FAX [phone] CALL doctor L9755 tel. [phone], FAX [phone] By: #### CMP #### [facility] [address] [place] [address] Licxmpy [Mass/Vol]257 mg/dLCritically dkbb36-36OyznsArkansas Valley Regional Medical CenterComment on above:Order Comment: CALL doctor L9755 tel. [phone], FAX [phone] CALL doctor L9755 tel. [phone], FAX [phone] By: #### CMP #### [facility] [address] [place] [address] Nksevdami [Moles/Vol]3.8 mmol/LNormal3.4-4.9[facility] CenterComment on above:Order Comment: CALL doctor L9755 tel. [phone], FAX [phone] CALL doctor L9755 tel. [phone], FAX [phone] By: #### CMP #### [facility] [address] [place] [address] Xgfycmc [Mass/Vol]6.3 g/dLNormal6.3-8.0[facility] Comment on above:Order Comment: CALL doctor L9755 tel. [phone], FAX [phone] CALL doctor L9755 tel. [phone], FAX [phone] By: #### CMP #### [facility] [address] [place] [address] Gnpokx [Moles/Vol]134 mmol/LDmk961-703BrwoySt. Mary-Corwin Medical Center Comment on above:Order Comment: CALL doctor L9755 tel. [phone], FAX [phone] CALL doctor L9755 tel. [phone], FAX [phone] By: #### CMP #### [facility] [address] [place] [address] Oalq nitrogen [Mass/Vol]16 mg/dLNormal8-23St. [facility] CenterComment on above:Order Comment: CALL doctor L9755 tel. [phone], FAX [phone] CALL doctor L9755 tel. [phone], FAX [phone] By: #### CMP #### [facility] [address] [place] [address] VK [place] 69-65[place]6109[place] [address] [place] Scan Report Signed Patient: ALTON BARKER MR#: [id number] : 1940 Acct:[id number] Age/Sex: 83 / F ADM Date: 05/02/24 Loc: CARD Attending Dr: Juani Martinez D.O. Ordering Physician: Juani Martinez D.O. Date of Service: 05/02/24 Procedure(s): CT chest high res Accession Number(s): [id number] cc: HONEY RABAGO [place] [id number] Patient Name: ALTON BARKER MRN: [id number] date: 1940 Sex: F Assigned Patient Location: CARD Current Patient Location: Accession/Order Number: [id number] Exam Date: 05/03/2024 10:42 Report Date: 05/03/2024 [...] Carrie Miguel M.D.05/03/2024 10:53 AM Dictation Location: [place] [address] Electronically authenticated by: [id number] Y Date: 05/03/2024 10:53 Dictated By: Carrie Miguel M.D. Signed By: 05/03/24 1238 DD/ 1053 TD/TT: Director Digital:TBHRadiology, Radiologist, - 05/03/2024 [place] [address] CT Scan Report Signed Patient: ALTON BARKER MR#: [id number] : 1940 Acct:[id number] Age/Sex: 83 / F ADM Date: 05/02/24 Loc: CARD Attending Dr: Juani Martinez D.O. Ordering Physician: Juani Martinez D.O. Date of Service: 05/02/24 Procedure(s): CT chest high res Accession Number(s): [id number] cc: HONEY RABAGO [place] [address] Patient Name: ALTON BARKER MRN: [facility]:[id number] date: 1940 Sex: F Assigned Patient Location: CARD Current Patient Location: Accession/Order Number: [id number] Exam Date: 05/03/2024 10:42 Report Date: 05/03/2024 [...] Carrie Miguel M.D.05/03/2024 10:53 AM Dictation Location: [place] [address] Electronically authenticated by: [id number] Y Date: 05/03/2024 10:53 Dictated By: Carrie Miguel M.D. Signed By: 05/03/24 1238 DD/ 1053 TD/TT: Director Digital: [facility]ITALHasmukh HealthcareRadiology Study observation (narrative)NOM HealthcareCT Chest Ordered By: Radiologist Radiology on 63-38-5039ESPN [employer] Work Phone: rt PULMONARY FUNCTION TESTon 63-68-6478[place]lr[place]wood [place] [address] Respiratory Report Signed Patient: ALTON BARKER MR#: [id number] : 1940 Acct:[id number] Age/Sex: 83 / F ADM Date: 05/02/24 Loc: CARD Attending Dr: Juani Martinez D.O. Ordering Physician: Juani Martinez D.O. Date of Service: 05/02/24 Procedure(s): RT pulmonary function test Accession Number(s): [id number] cc: [facility] Test Date: 2024-05-02 Pat Name: ALTON BARKER Department: Room: - Gender: Female Campaign Fundraiser: Chery Morrison RRT : 1940 Requested By: Juani Martinez Order Number: [id number] Reading MD: Juani Martinez Interpretive Statements Pulmonary [...] By: Juani Martinez D.O. Signed By: 05/02/24 9684 DD/ 1309 TD/TT: Director Digital:TBHRadiology, Radiologist, MD - 05/02/2024 [place] [address] Respiratory Report Signed Patient: ALTON BARKER MR#: [id number] : 1940 Acct:[id number] Age/Sex: 83 / F ADM Date: 05/02/24 Loc: CARD Attending Dr: Juani Martinez D.O. Ordering Physician: Juani Martinez D.O. Date of Service: 05/02/24 Procedure(s): RT pulmonary function test Accession Number(s): [id number] cc: [facility] Test Date: 2024-05-02 Pat Name: ALTON BARKER Department: Room: - Gender: Female Campaign Fundraiser: Chery Morrison RRT : 1940 Requested By: Juani Martinez Order Number: [id number] Reading MD: Juani Martinez Interpretive Statements Pulmonary [...] By: Juani Martinez D.O. Signed By: 05/02/24 8648 DD/ 1309 TD/TT: Director Digital: [facility] ServicesRadiology Study observation (narrative)[facility] ServicesRT PULMONARY FUNCTION TESTOrdered By: Radiologist Radiology on 32-78-5159MISB [employer] Work Phone: Urine Cultureon 62-34-7891Xhtaziqe identified Cx Nom (U)ORGANISM: Enterobacter cloacae complex (O:ENTCLOCPLX) Forest Count 50,000 ORGANISM: Enterococcus faecalis (O:ENTFAC) [place] Count 25,000 ORGANISM: Aerococcus urinae (O:AERURI) Forest Count >100,000 Organism Comments Organism not Routinely [...] RESISTANT TO ALL B-LACTAM DRUGS. PERFORMED BY: [place] [address] PATHOLOGIST TAFE LECTURER NARDA CHEN M.D.[facility] Physician GroupComment on above: Performed By: #### CUU #### [place] [address] USACT cervical spine wo conon [id number] cervical spine wo [facility] [place] [address] [place] [address] CT Scan Report Signed Patient: Alton Barker MR#: [id number] : 1940 Acct:[id number] Age/Sex: 83 / F ADM Date: 03/04/24 Loc: ER Room: Type: [facility] ER Attending Dr: Copies to: Lillian Hutton MD Ordering Provider: Lillian Hutton MD Date of Service: 03/04/24 CT/CT head/brain wo con: nkjhb ([id number]) CT/CT cervical spine wo con: nkjhb CT [...] Vijay Holden M.D.03/05/2024 9:13 AM Dictation Location: [place] [address] Transcribed By: [place] [facility] 03/05/24912 Dictated By: Vijay Holden II, MD 03/05/24905 Signed By: 03/05/24 0913[facility] Physician GroupCT lumbar spine wo conon 58-76-7687PH lumbar spine wo [facility] Main [place] [address] [place] [address] CT Scan Report Signed Patient: Alton Barker MR#: [id number] 987 : 1940 Acct:[id number] Age/Sex: 83 / F ADM Date: 03/04/24 Loc: ER Room: Type: [facility] ER Attending Dr: Copies to: Lillian Hutton [...] Vijay Holden M.D.03/05/2024 9:47 AM Dictation Location: [place] [address] Transcribed By: SHERINE 03/05/2447 Dictated By: Vijay Holden II, MD 03/05/2413 Signed By: 03/05/2447[facility] Physician GroupBacteria [Presence] in Urine sediment by Light microscopyOrdered By: Lillian Hutton on 66-58-6454Kzczfpgz LM Ql (Urine sed)Bacteria [Presence] in Urine sediment by Light microscopyHighNone [facility] Medical CenterBasic Metabolic Panelon 40-26-0019Nixgl gap [Moles/Vol]12.5 mmol/LNormal6.0-15.0The [facility] Physician GroupComment on above:Performed By: #### CBC, BMP #### [facility] [address] [place] [address] USACalcium [Mass/Vol]9.1 mg/dLNormal8.6-10.3The [facility] Physician GroupComment on above:Performed By: #### CBC, BMP #### [facility] [address] [place] [address] USAChloride [Moles/Vol]104 mmol/PLfcrqu18-293Udm [facility] Physician GroupComment on above:Performed By: #### CBC, BMP #### [facility] [address] [place] [address] USACO2 [Moles/Vol]26.0 mmol/KPuywtq05.0-31.0The [facility] Physician GroupComment on above:Performed By: #### CBC, BMP #### [facility] [address] [place] [address] USACreatinine [Mass/Vol]0.84 mg/dLNormal0.60-1.20The [facility] Physician GroupComment on above:Performed By: #### CBC, BMP #### [facility] [address] [place] [address] USACreatinine Clr Calc Ahvlhsjq53.88NormGadsden Community Hospital Physician GroupComment on above:Result Comment: PERFORMED BY: [place] [address] PATHOLOGIST TAFE LECTURER NARDA CHEN M.D.Performed By: #### CBC, BMP #### [place] [address] USAGFR/1.73 sq M.predicted MDRD (S/P/Bld) [Vol rate/Area] mL/min/{1.73_m2}NormalThe [facility] Physician GroupComment on above:Performed By: #### CBC, BMP #### [place] [address] USAGlucose [Mass/Vol]166 mg/kAIqgt49-220Djn [facility] Physician GroupComment on above:Result Comment: Random Glucose Reference Range is dependent on time and content of last meal. Glucose of more than 200 mg/dL in a nonstressed, ambulatory subject supports the diagnosis of Diabetes Mellitus. ADA recommended reference rangePerformed By: #### CBC, BMP #### [place] [address] USAPotassium [Moles/Vol]4.5 mmol/LNormal3.5-5.1The [facility] Physician GroupComment on above:Performed By: #### CBC, BMP #### [place] [address] USASodium [Moles/Vol]138 mmol/AVorrta475-077Zng [facility] Physician GroupComment on above:Performed By: #### CBC, BMP #### [place] [address] USAUrea nitrogen [Mass/Vol]14 mg/dLNormal7-25The [facility] Physician GroupComment on above:Performed By: #### CBC, BMP #### [place] [address] USABasophils Auto (Bld) [#/Vol]Ordered By: Lillian Hutton on 44-28-8894Lgpnbhshh (Bld) [#/Vol]Automated basophil count0.0-0.2FGood Samaritan HospitalBasophils/100 WBC Auto (Bld)Ordered By: Lillian Hutton on 22-34-4500Ljhlvteoh/100 WBC (Bld)Automated basophil %.[facility] Orrville HospitalBilirubin Test strip Ql (U)Ordered By: Lillian Hutton on 71-83-3038Mrmvsxdta Ql (U)Bilirubin.total [Presence] in Urine by Test stripNegativeAultman Orrville HospitalCalcium [Mass/volume] in Serum or PlasmaOrdered By: Lillian Hutton on 04-42-0804Ltoigwz [Mass/Vol]Calcium [Mass/volume] in Serum or Plasma 8.6-10.3FGood Samaritan HospitalCarbon dioxide, total [Moles/volume] in Serum or PlasmaOrdered By: Lillian Hutton on 04-25-2883DT7 [Moles/Vol]Carbon dioxide, total [Moles/volume] in Serum or Whtpgs05.0-31.0[facility] Orrville HospitalChloride [Moles/volume] in Serum or PlasmaOrdered By: Lillian Hutton on 35-43-0169Mlgmxsoz [Moles/Vol]Chloride [Moles/volume] in Serum or Plasma 98-107A[facility] Orrville HospitalComplete Blood Count Auto Diffon 14-49-5818Ekyedddyp (Bld) [#/Vol]0.0 10*3/uLNormal0.0-0.2The [facility] Physician GroupComment on above:Result Comment: PERFORMED BY: [place] [address] PATHOLOGIST TAFE LECTURER NARDA CHEN M.D.Performed By: #### CBC, BMP #### [facility] [address] [place] [address] USABasophils/100 WBC (Bld)0.6 %Normal.The [facility] Physician GroupComment on above:Performed By: #### CBC, BMP #### [facility] [address] [place] [address] USAEosinophils (Bld) [#/Vol]0.2 10*3/uLNormal0.0-0.45The [facility] Physician GroupComment on above:Performed By: #### CBC, BMP #### [place] [address] USAEosinophils/100 WBC (Bld)3.6 %Normal.The [facility] Physician GroupComment on above:Performed By: #### CBC, BMP #### [place] [address] USAErythrocyte distribution width (RBC) [Ratio]17.1 %High 11.9-15.3The [facility] Physician GroupComment on above:Performed By: #### CBC, BMP #### [place] [address] USAHematocrit (Bld) [Volume fraction]36.0 %Ppoaul28.0-46.4The [facility] Physician GroupComment on above:Performed By: #### CBC, BMP #### [place] [address] USAHemoglobin (Bld) [Mass/Vol]11.7 g/dLLow11.8-15.4The [facility] Physician GroupComment on above:Performed By: #### CBC, BMP #### [place] [address] USALymphocytes (Bld) [#/Vol]1.5 10*3/uLNormal1.00-4.8The [facility] Physician GroupComment on above:Performed By: #### CBC, BMP #### [place] [address] USALymphocytes/100 WBC (Bld)22.1 %Normal.The [facility] Physician GroupComment on above:Performed By: #### CBC, BMP #### [place] [address] USAMCH (RBC) [Entitic mass]30.1 wkMmcqqw56.7-34.3The [facility] Physician GroupComment on above:Performed By: #### CBC, BMP #### [place] [address] USAMCV (RBC) [Entitic vol]92.7 dWWbtdar18-607Sxd [facility] Physician GroupComment on above:Performed By: #### CBC, BMP #### [place] [address] USAMean Corpuscular HGB Conc32.4 g/aJWventa75.0-35.0The [facility] Physician GroupComment on above:Performed By: #### CBC, BMP #### [place] [address] USAMonocytes (Bld) [#/Vol]0.7 10*3/uLNormal0.0-0.8The [facility] Physician GroupComment on above:Performed By: #### CBC, BMP #### [place] [address] USAMonocytes/100 WBC (Bld)23.00 %High0.00-20.00The [facility] Physician GroupComment on above:Result Comment: For adults in ED, MDW > 20.0 may be associated with a higher risk of sepsis during the first 12 hrs of hospital admissionPerformed By: #### CBC, BMP #### [place] [address] USAMonocytes/100 WBC (Bld)9.6 %Normal.The [facility] Physician GroupComment on above:Performed By: #### CBC, BMP #### [place] [address] USANeutrophils (Bld) [#/Vol]4.4 10*3/uLNormal1.8-7.7The [facility] Physician GroupComment on above:Performed By: #### CBC, BMP #### [place] [address] USANeutrophils/100 WBC (Bld)64.1 %Normal.The [facility] Physician GroupComment on above:Performed By: #### CBC, BMP #### [place] [address] USANRBC%0.1 /100{WBC}Normal0-0.5The [facility] Physician Group Comment on above:Performed By: #### CBC, BMP #### [place] [address] USAPlatelet mean volume (Bld) [Entitic vol]9.0 fLNormal 6.3-10.7The [facility] Physician GroupComment on above:Performed By: #### CBC, BMP #### [facility] [address] [place] [address] USAPlatelets (Bld) [#/Vol]197 10*3/gZXtuesb153-468Dgk [facility] Physician GroupComment on above:Performed By: #### CBC, BMP #### [facility] [address] [place] [address] USARBC (Bld) [#/Vol]3.88 10*6/uLNormal3.60-5.00The [facility] Physician GroupComment on above:Performed By: #### CBC, BMP #### [facility] [address] [place] [address] USAWBC (Bld) [#/Vol]6.9 10*3/uLNormal3.8-11.6The [facility] Physician GroupComment on above:Performed By: #### CBC, BMP #### [place] [address] USACreatinine [Mass/volume] in Serum or PlasmaOrdered By: Lillian Hutton on 41-24-1856Qufsewddpa [Mass/Vol]Creatinine [Mass/volume] in Serum or Plasma0.60-1.20[facility] Orrville HospitalDipstick and Microscopicon 28-88-5425Fypxwhlgsj (U)Slightly CloudyCritically abnormalClearThe [facility] Physician GroupComment on above:Order Comment: Name Collection Type:: Straight CatheterPerformed By: #### GAGAN, CUU #### [place] [address] USABacteria,Urine2+HighNone SeenThe [facility] Physician Group Comment on above:Order Comment: Name Collection Type:: Straight Catheter Performed By: #### GAGAN, CUU #### [address] [address] USABilirubin,UrineNegativeNormalNegativeThe [facility] Physician GroupComment on above:Order Comment: Name Collection Type:: Straight CatheterPerformed By: #### FUADPLUS, CUU #### [place] [id number] USAColor (U)Light-YellowNormalYellowThe [facility] Physician GroupComment on above:Order Comment: Name Collection Type:: Straight Catheter Performed By: #### ADDONUAPLUS, CUU #### [place] [address] USAGlucose Ql (U)NormalNormalNormalThe [facility] Physician GroupComment on above:Order Comment: Name Collection Type:: Straight Catheter Performed By: #### ADDONUAPLUS, CUU #### [place] [address] USAKetones Ql (U)NegativeNormalNegativeThe [facility] Physician GroupComment on above:Order Comment: Name Collection Type:: Straight CatheterPerformed By: #### ADDONUAPLUS, CUU #### [place] [address] USALeukocyte esterase Test strip Ql (U)2+HighNegativeThe [facility] Physician GroupComment on above:Order Comment: Name Collection Type:: Straight CatheterPerformed By: #### ADDONUAPLUS, CUU #### [place] [address] USANitrite,UrinePositiveHighNegativeThe [facility] Physician GroupComment on above:Order Comment: Name Collection Type:: Straight Catheter Performed By: #### ADDONUAPLUS, CUU #### [place] [address] USAOccult Blood,UrineTraceHighNegativeThe [facility] Physician GroupComment on above:Order Comment: Name Collection Type:: Straight Catheter Result Comment: PERFORMED BY: [place] [address] PATHOLOGIST TAFE LECTURER NARDA CHEN M.D.Performed By: #### ADDONUAPLUS, CUU #### [place] [address] USApH (U)7.0 [pH]Normal5.0-9.0The [facility] Physician Group Comment on above:Order Comment: Name Collection Type:: Straight Catheter Performed By: #### ADDONUAPLUS, CUU #### [place] [address] USAProtein,UrineTraceHighNegativeThe [facility] Physician GroupComment on above:Order Comment: Name Collection Type:: Straight Catheter Performed By: #### ADDONUAPLUS, CUU #### [place] [address] USARBC,Urine0 [HPF]Normal0-4The [facility] Physician Group Comment on above:Order Comment: Name Collection Type:: Straight Catheter Performed By: #### ADDONUAPLUS, CUU #### [place] [address] USASpecificy [place],Urine1.420Reearm5.001-1.030The [facility] Physician GroupComment on above:Order Comment: Name Collection Type:: Straight CatheterPerformed By: #### ADDONUAPLUS, CUU #### [place] [address] USASquamous Epithelial Cell,UrineNone SeenNormal0-2The [facility] Physician GroupComment on above:Order Comment: Name Collection Type:: Straight CatheterPerformed By: #### ADDONUAPLUS, CUU #### [place] [address] USAUrine CommentNormalThe [facility] Physician GroupComment on above:Order Comment: Name Collection Type:: Straight CatheterResult Comment: SPECIMEN RECEIVED HAD ONLY 1 ML OF URINE. SPECIMEN NOT SPUN DOWN FOR MICROSCOPY. INTERPRET RESULTS WITH CAUTION. PERFORMED BY: [place] [address] PATHOLOGIST TAFE LECTURER NARDA CHEN M.D.Performed By: #### ADDONUAPLUS, CUU #### [place] [address] USAUrobilinogen,UrineNormalNormalNormalThe [facility] Physician GroupComment on above:Order Comment: Name Collection Type:: Straight CatheterPerformed By: #### ADDONUAPLUS, CUU #### [facility] [address] [place] [id number] USAWBC,Urine5 [HPF]High0-4The [facility] Physician Group Comment on above:Order Comment: Name Collection Type:: Straight Catheter Performed By: #### GAGAN, CUU #### [facility] [address] [place] [address] USAECG 12 lead ECGon 11-91-7660WGP 12 lead ECGMERCY HE[facility] Main [place] [address] [place] [address] Electrocardiograph Report Signed Patient: Alton Barker MR#: [id number] 987 : 1940 Acct:[id number] Age/Sex: 83 / F ADM Date: 03/04/24 Loc: ER Room: Type: [facility] ER Attending Dr: Ordering Provider: Lillian Hutton [...] MUS Signed By Lillian Hutton MD 03/04/[address] [place] [address] Physician GroupEosinophils Auto (Bld) [#/Vol]Ordered By: Lillian Hutton on 81-34-8272Uggeuirorcv (Bld) [#/Vol]Automated eosinophil count 0.0-0.45[facility] Orrville HospitalEosinophils/100 WBC Auto (Bld)Ordered By: Lillian Hutton on 25-42-2086Lyrnfqezkwl/100 WBC (Bld)Automated eosinophil %. [facility] HospitalEpithelial cells.squamous [#/area] in Urine sediment by Microscopy high power fieldOrdered By: Lillian Hutton on 03-04-2024 Epithelial cells.squamous LM.HPF (Urine sed) [#/Area]Epithelial cells.squamous [#/area] in Urine sediment by Microscopy high power field0-2FGood Samaritan HospitalErythrocyte distribution width Auto (RBC) [Ratio]Ordered By: Lillian Hutton on 73-95-0644Zxhyxppxijv distribution width (RBC) [Ratio]Erythrocyte distribution width [Ratio] by Automated uwqeoBcew87.9-15.3FGood Samaritan HospitalErythrocytes [#/area] in Urine sediment by Microscopy high power fieldOrdered By: Lillian Hutton on 36-90-4426QMR LM.HPF (Urine sed) [#/Area] Erythrocytes [#/area] in Urine sediment by Microscopy high power field0-4 [facility] HospitalGlucose [Mass/volume] in Serum or PlasmaOrdered By: Lillian Hutton on 03-90-2470Tjokfkw [Mass/Vol]Glucose [Mass/volume] in Serum or GgrrmbNnbj38-477FrgadyckdAultman Orrville HospitalComment on above:ADA recommended reference rangeRandom Glucose Reference Range is dependent on time and content of last meal. Glucose of more than 200 mg/dL in a nonstressed, ambulatory subject supports the diagnosisof Diabetes Mellitus.Glucose [Mass/volume] in Urine by Test stripOrdered By: Lillian Hutton on 65-22-9602[place] Test strip (U) [Mass/Vol]Glucose [Mass/volume] in Urine by Test stripNormal [facility] HospitalHematocrit Auto (Bld) [Volume fraction]Ordered By: Lillian Hutton on 30-55-8943Zfnlexeorc (Bld) [Volume fraction]Hematocrit [Volume Fraction] of Blood by Automated count34.0-46.4FGood Samaritan Hospital Hemoglobin Test strip Ql (U)Ordered By: Lillian Hutton on 32-61-5562Afojrwphtn Ql (U)Hemoglobin [Presence] in Urine by Test stripHighNegativeAultman Orrville HospitalHemoglobin [Mass/volume] in BloodOrdered By: Lillian Hutton on 36-54-6047Hmlwteamzq (Bld) [Mass/Vol]Hemoglobin [Mass/volume] in BloodLow 11.8-15.4FGood Samaritan HospitalKetones Test strip (U) [Mass/Vol] Ordered By: Lillian Hutton on 97-22-8916Kjozaye (U) [Mass/Vol]Urine ketones measurement by test strip (mass/volume)NegativeAultman Orrville Hospital Leukocyte esterase [Presence] in Urine by Test stripOrdered By: Lillian Hutton on 92-39-3296Obxgjckhl esterase Test strip Ql (U)Leukocyte esterase [Presence] in Urine by Test stripHighNegativeAultman Orrville HospitalLeukocytes [#/area] in Urine sediment by Microscopy high power fieldOrdered By: Lillian Hutton on 96-51-9078RLW LM.HPF (Urine sed) [#/Area]Leukocytes [#/area] in Urine sediment by Microscopy high power fieldHigh0-4FGood Samaritan Hospital Leukocytes [#/volume] corrected for nucleated erythrocytes in Blood by Automated counOrdered By: Lillian Hutton on 76-67-0188PKD corrected for nucl RBC Auto (Bld) [#/Vol]Leukocytes [#/volume] corrected for nucleated erythrocytes in Blood by Automated coun3.8-11.6FGood Samaritan HospitalLymphocytes Auto (Bld) [#/Vol]Ordered By: Lillian Hutton on 40-09-9888Mtchbknorhz (Bld) [#/Vol]Lymphocytes [#/volume] in Blood by Automated count1.00-4.8[facility] Lymphocytes/100 WBC Auto (Bld)Ordered By: Lillian Hutton on 03-04-2024 Lymphocytes/100 WBC (Bld)Lymphocytes/100 leukocytes in Blood by Automated count. [facility] Auto (RBC) [Entitic mass]Ordered By: Lillian Hutton on 06-50-2240BQR (RBC) [Entitic mass]MCH [Entitic mass] by Automated count 24.7-34.3FWadsworth-Rittman HospitalHC Auto (RBC) [Mass/Vol]Ordered By: Lillian Hutton on 35-62-3576XHNZ (RBC) [Mass/Vol]MCHC [Mass/volume] by Automated count32.0-35.0[facility] NorthV Auto (RBC) [Entitic vol] Ordered By: Lillian Hutton on 75-47-5393MPF (RBC) [Entitic vol]MCV [Entitic volume] by Automated -965LxzadumtpAultman Orrville HospitalMonocyte distribution width [Entitic volume] in Blood by AutomatedOrdered By: Lillian Hutton on 03-04-2024 Monocyte distribution width Auto (Bld) [Entitic vol]Monocyte distribution width [Entitic volume] in Blood by AutomatedHigh0.00-20.00[facility]rville HospitalComment on above:For adults in ED, MDW > 20.0 may be associated with a higher risk of sepsis during the first 12 hrs of hospital admissionMonocytes Auto (Bld) [#/Vol]Ordered By: Lillian Hutton on 11-97-5818Sjqzkhpig (Bld) [#/Vol] Automated blood monocyte count0.0-0.8[facility] Monocytes/100 WBC Auto (Bld)Ordered By: Lillian Hutton on 57-30-1663Hothbbera/100 WBC (Bld)Automated monocyte %.[facility] HospitalNeutrophils Auto (Bld) [#/Vol]Ordered By: Lillian Hutton on 95-96-8531Xpxikpsejae (Bld) [#/Vol] Neutrophils [#/volume] in Blood by Automated count1.8-7.7FGood Samaritan HospitalNeutrophils/100 WBC Auto (Bld)Ordered By: Lillian Hutton on 03-04-2024 Neutrophils/100 WBC (Bld)Automated neutrophil %.[facility] Orrville HospitalNitrite Test strip Ql (U)Ordered By: Lillian Hutton on 36-86-7697Hsufakk Ql (U)Nitrite [Presence] in Urine by Test stripHighNegativeAultman Orrville HospitalNo Panel InformationOrdered By: Lillian Hutton on 73-29-7099Iphsq CommentSee commentAultman Orrville HospitalComment on above:SPECIMEN RECEIVED HAD ONLY 1 ML OF URINE. SPECIMEN NOT SPUN DOWN FOR MICROSCOPY. INTERPRET RESULTS WITH CAUTION.Estimated GFR (CKD-EPI)> 60.0 mL/MinAultman Orrville HospitalPharmacy Creatinine Clearance (Chem62.88[facility] HospitalNucleated erythrocytes [Presence] in Blood by Automated countOrdered By: Lillian Hutton on 98-09-4226Ilhtbleqs RBC Auto Ql (Bld)Nucleated erythrocytes [Presence] in Blood by Automated count0-0.5FGood Samaritan HospitalPlatelet mean volume Auto (Bld) [Entitic vol]Ordered By: Lillian Hutton on 25-06-4346Zqcptgya mean volume (Bld) [Entitic vol]Platelet mean volume [Entitic volume] in Blood by Automated count6.3-10.7FGood Samaritan HospitalPlatelets Auto (Bld) [#/Vol]Ordered By: Lillian Hutton on 02-88-5345Ztxzwqkij (Bld) [#/Vol]Platelets [#/volume] in Blood by Automated lavrg812-124KnmxqaweqAultman Orrville HospitalPotassium [Moles/volume] in Serum or PlasmaOrdered By: Lillian Hutton on 58-18-8780Tcljxftfh [Moles/Vol]Potassium [Moles/volume] in Serum or Plasma3.5-5.1FGood Samaritan HospitalProtein Test strip (U) [Mass/Vol]Ordered By: Lillian Hutton on 38-23-2139Bzgvabw (U) [Mass/Vol]Protein [Mass/volume] in Urine by Test stripHighNegativeAultman Orrville HospitalRBC Auto (Bld) [#/Vol]Ordered By: Lillian Hutton on 10-95-3127VOZ (Bld) [#/Vol]Erythrocytes [#/volume] in Blood by Automated count3.60-5.00[facility] Hospitalerum or plasma anion gap determinationOrdered By: Lillian Hutton on 18-49-8440Camhb gap [Moles/Vol]Serum or plasma anion gap determination 6.0-15.0[facility] Hospitalodium [Moles/volume] in Serum or PlasmaOrdered By: Lillian Hutton on 50-84-5442Ewdlzm [Moles/Vol]Sodium [Moles/volume] in Serum or Mrurzx906-399ChykgktmhAultman Orrville Hospital Specific gravity of Urine by RefractometryOrdered By: Lillian Hutton on 03-04-2024 Specific gravity Refractometry (U) [Rel density]Specific gravity of Urine by Refractometry1.001-1.030[facility] HospitalUrea nitrogen [Mass/volume] in Serum or PlasmaOrdered By: Lillian Hutton on 80-97-6940Neel nitrogen [Mass/Vol]Urea nitrogen [Mass/volume] in Serum or Plasma7-25[facility]rville HospitalUrine Cultureon 63-46-4984Izymeoqx identified Cx Nom (U) ORGANISM: Escherichia coli (O:ESCCOL) Forest Count >100,000 Aerobic JIMMY Charge (NMIC56) SUSCEPTIBILITY [...] TO ALL B-LACTAM DRUGS. PERFORMED BY: [facility] [address] [place] [address] PATHOLOGIST TAFE LECTURER NARDA CHEN M.D.NormalThe [facility] Physician GroupComment on above: Performed By: #### DIMA FARAHU #### [facility] [address] [place] [address] USAUrine appearance determinationOrdered By: Lillian Hutton on 39-92-9761Ujyjlrnnuu (U)Urine appearanceAbnormalCHolzer Health SystemUrine color determinationOrdered By: Lillian Hutton on 21-93-9899Odeha (U) Urine colorYelSumma Health Barberton CampusUrine cultureOrdered By: Lillian Hutton on 41-99-0886Zzxhengj identified Cx Nom (U)Escherichia coliAbnoMercy Health – The Jewish HospitalUrobilinogen Test strip (U) [Mass/Vol]Ordered By: Lillian Hutton on 52-35-6690Yctlaeebumze (U) [Mass/Vol]Urobilinogen [Mass/volume] in Urine by Test stripNoParkview Health Bryan HospitalWBC Auto (Bld) [#/Vol]Ordered By: Lillian Hutton on 02-67-7700PVN (Bld) [#/Vol] Leukocytes [#/volume] in Blood by Automated count3.8-11.6FGood Samaritan HospitalpH Test strip (U)Ordered By: Lillian Hutton on 63-26-5906fB (U)pH of Urine by Test strip5.0-9.0[facility] HospitalCT lumbar spine wo conon 98-05-0631EL lumbar spine wo [facility] [place] [address] CT Scan Report Signed Patient: Alton Barker MR#: [id number] 987 : 1940 Acct:[id number] Age/Sex: 83 / F ADM Date: 02/26/24 Loc: ER Room: Type: [facility] ER Attending Dr: Copies to: Lillian Hutton [...] disease. Impression dictated by: Alcides Malin Jr., D.OoJann02/27/2024 8:19 AM Dictation Location: [facility] [address] Transcribed By: [facility] 02/27/24818 Dictated By: Alcides Malin Jr, DO 02/27/24815 Signed By: 02/27/24818[facility]ician Ljfpw43-ygnqhcsatcpyan D3 [Mass/Vol] on 254912-atfdaxnulaizht D [Mass/Vol]61.8 ng/mL30.0 - 100.0 ng/mLNOMS HealthcareComment on above:Vitamin D deficiency has been defined by the [place] of [employer] and an Endocrine Society practice guideline as a level of serum 25-OH vitamin D less than 20 ng/mL (1,2). The Endocrine Society went on to further define vitamin D insufficiency as a level between 21 and 29 ng/mL (2). 1. IOM ([place] of [employer]). 2010. Dietary reference intakes for calcium and D. [place]: The National Academies Press. 2. Earl MF, Ken WILL, Yoandy PEDERSEN, et al. Evaluation, treatment, and prevention of vitamin D deficiency: an Endocrine Society clinical practice guideline. JCEM. 2010; 96(7):1911-30. CBC W Auto Differential panel (Bld)on 35-02-7298Dwpysoiol (Bld) [#/Vol]0 10*3/uL [facility] HealthcareBasophils/100 WBC (Bld)1 %Not Estab.[facility] HealthcareEosinophils (Bld) [#/Vol]0.2 10*3/uLNOMS HealthcareEosinophils/100 WBC (Bld)3 %Not Estab. [facility] HealthcareErythrocyte distribution width (RBC) [Ratio]14.5 %11.7 - 15.4 % [facility] HealthcareHematocrit (Bld) [Volume fraction]37.9 %34.0 - 46.6 %[facility] HealthcareHemoglobin (Bld) [Mass/Vol]11.6 g/dL11.1 - 15.9 g/dLNOCT Healthcare Immature granulocytes (Bld) [#/Vol]0 10*3/uLNOMS HealthcareImmature granulocytes/100 WBC (Bld)0 %Not Estab.[facility] HealthcareLymphocytes (Bld) [#/Vol] 1.7 10*3/uLNOMS HealthcareLymphocytes/100 WBC (Bld)24 %Not Estab.[facility] MCH (RBC) [Entitic mass]29.2 pg26.6 - 33.0 pgNOMercy Hospital South, formerly St. Anthony's Medical CenterMCHC (RBC) [Mass/Vol]30.6 g/dLLow31.5 - 35.7 g/dLSaint Francis Hospital & Health ServicesMCV (RBC) [Entitic vol]96 fL79 - 97 fLGARFIELD MEMORIAL HOSPITAL HealthcareMonocytes (Bld) [#/Vol]0.5 10*3/uLNOMS Healthcare Monocytes/100 WBC (Bld)7 %Not Estab.[facility] HealthcareNeutrophils (Bld) [#/Vol]4.8 10*3/uLNOMS HealthcareNeutrophils/100 WBC (Bld)65 %Not Estab.[facility] Platelets (Bld) [#/Vol]174 10*3/uLNOMS HealthcareRBC (Bld) [#/Vol]3.97 10*6/uL [facility] HealthcareWBC (Bld) [#/Vol]7.4 10*3/uLNOMS HealthcareComprehensive metabolic panelon 03-80-0148Dizubin [Mass/Vol]3.8 g/dL3.7 - 4.7 g/dLNOCT HealthcareALP [Catalytic activity/Vol]96 U/LNOMS HealthcareALT [Catalytic activity/Vol]15 U/LNOMS HealthcareAST [Catalytic activity/Vol]16 U/LNOMS HealthcareBilirubin [Mass/Vol]1.2 mg/dL0.0 - 1.2 mg/dLNOMS HealthcareCalcium [Mass/Vol]8.9 mg/dL8.7 - 10.3 mg/dLNOMS HealthcareChloride [Moles/Vol]102 mmol/L 96 - 106 mmol/LNOMS HealthcareCO2 [Moles/Vol]25 mmol/L20 - 29 mmol/LNOMS HealthcareCreatinine [Mass/Vol]0.95 mg/dL0.57 - 1.00 mg/dLNOCT Healthcare GFR/1.73 sq M.predicted among non-blacks MDRD (S/P/Bld) [Vol rate/Area]60 mL/min/{1.73_m2}59 - PINF mL/min/1.73N[facility] HealthcareGlobulin (S) [Mass/Vol]3.1 g/dL1.5 - 4.5 g/dLNOCT HealthcareGlucose [Mass/Vol]190 mg/gXOolc90 - 99 mg/dL [facility] HealthcarePotassium [Moles/Vol]4.1 mmol/L3.5 - 5.2 mmol/LNOMS Healthcare Protein [Mass/Vol]6.9 g/dL6.0 - 8.5 g/dLNOMS HealthcareSodium [Moles/Vol]142 mmol/L134 - 144 mmol/LNOMS HealthcareUrea nitrogen [Mass/Vol]13 mg/dL8 - 27 mg/dLNOCT HealthcareUrea nitrogen/Creatinine [Mass ratio]14 mg/mg12 - 28NOCT HealthcareLaboratory - Chemistry and Chemistry - challengeon 14-63-6125KYK Qn 1.68 m[IU]/LNOMS HealthcareLipid 1996 panelon 97-77-4120Pizsineamzx [Mass/Vol] 115 mg/dL100 - 199 mg/dLNOMercy Hospital South, formerly St. Anthony's Medical CenterCholesterol in HDL [Mass/Vol]50 mg/dL39 - PINF mg/dLNOCT HealthcareCholesterol in LDL [Mass/Vol]45 mg/dL0 - 99 mg/dLNOCT HealthcareCholesterol in VLDL [Mass/Vol]20 mg/dL5 - 40 mg/dLNOCT Healthcare Triglyceride [Mass/Vol]111 mg/dL0 - 149 mg/dLNOMercy Hospital South, formerly St. Anthony's Medical CenterNo Panel Information on 87-03-1838Pjqhhpotxorkdx and review of laboratory resultsAbnormalNOMercy Hospital South, formerly St. Anthony's Medical CenterPerformed at: 01 - Lab[address] [id number] Vice President Of Finance: Ismael Kruger PhD, Phone: [phone] Healthcare Performed at: 01 - [address] [id number] Vice President Of Finance: Ismael Kruger PhD, Phone: [phone] [facility] Specimen Status Reporton 42-62-0246Xywpyesbmqo Disk diffusion (KB) [[facility]]Comment [facility] ServicesComment on above:Debby Abbrev CMP14 Default Ambpanda Abbrev CMP14 Default A hand-written panel/profile was received from your office. In accordance with the [facility]Saint [facility] Ambiguous Test Code Policy dated September 2002, we have completed your order by using the closest currently or formerly recognized AMA panel. We have assigned Comprehensive Metabolic Panel (14), Test Code #615364 to this request. If this is not the testing you wished to receive on this specimen, please contact the [employer] Client Inquiry/Technical Services Department to clarify the test order. We appreciate your business. Ambig Abbrev LP Default Ambig Abbrev LP Default A hand-written panel/profile was received from your office. In accordance with the [facility] Ambiguous Test Code Policy dated September 2002, we have completed your order by using the closest currently or formerly recognized AMA panel. We have assigned Lipid Panel, Test Code #070557 to this request. If this is not the testing you wished to receive on this specimen, please contact the [employer] Client Inquiry/Technical Services Department to clarify the test order. We appreciate your business. Vitamin B12on 75-46-0716Vjqdmzohd (Vitamin B12) [Mass/Vol]pg/uSXkkq689 - 1245 pg/mLNOMS HealthcareLaboratory - Hematology and Cell countson 41-69-5186BkH4i (Bld) [Mass fraction]7.6 %[facility] HealthcareNo Panel Informationon 61-16-7050IVDN HealthcareLaboratory - Hematology and Cell countson 49-11-7797TsJ0z (Bld) [Mass fraction]9.2 %[facility] ServicesNo Panel Informationon 60-85-8267MKCW Healthcare CNOVon 45-46-9969PMBRPckjss Visit (NRMDN) ALTON BARKER ([id number]) 1940 F Date Time Provider Department 10/25/23 1:30 PM GLORIA PEREZ During your visit today, we recorded the following information about you: Pulse Blood pressure Weight Height 74/minute 137/76 112 kg 1.676 m Gloria Perez APRN.MOLD CARRIER 11/02/2023 9:17 PM Signed [facility] - FOLLOW UP EVALUATION Honey Rabago DO [address] [facility] [id number] Dear Honey Rabago DO: I had the [...] mind about physical therapy and if the cerner analyst approves Depression and anxiety: Continue Venlafaxine (Effexor) [...] 150 mg by mo (more content not included)...NormalUniversity Hospitals Beachwood Medical Center Cheston 48-12-4935[place] [address] [place] Scan Report Signed Patient: ALTON BARKER MR#: [id number] : 1940 Acct:[id number] Age/Sex: 83 / F ADM Date: 10/18/23 Loc: CARD Attending Dr: Juani Martinez D.O. Ordering Physician: Juani Martinez D.O. Date of Service: 10/18/23 Procedure(s): CT chest high res Accession Number(s): [id number] cc: HONEY RABAGO [place] [address] Patient Name: ALTON BARKER MRN: [id number] date: 1940 Sex: F Assigned Patient Location: CARD Current Patient Location: Accession/Order Number: [id number] Exam Date: 10/18/2023 13:55 Report Date: 10/20/2023 [...] M.D. Signed By: 10/20/23625 DD/ 3 TD/TT: Director Digital:DERICKadiologmatthias, Radiologist, - 10/20/2023 [place] [address] CT Scan Report Signed Patient: ALTON BARKER MR#: [id number] : 1940 Acct:[id number] Age/Sex: 83 / F ADM Date: 10/18/23 Loc: CARD Attending Dr: Juani Martinez D.O. Ordering Physician: Juani Martinez D.O. Date of Service: 10/18/23 Procedure(s): CT chest high res Accession Number(s): [id number] cc: HONEY RABAGO [place] [address] Patient Name: ALTON BARKER MRN: [id number] date: 1940 Sex: F Assigned Patient Location: CARD Current Patient Location: Accession/Order Number: [id number] Exam Date: 10/18/2023 13:55 Report Date: 10/20/2023 [...] M.D. Signed By: 10/20/23625 DD/ 3 TD/TT: Director Digital: JENNIFER HealthcareRadiology Study observation (narrative)[facility] HealthcareCT Chest Ordered By: Radiologist Radiology on 13-36-1887NRYW Healthcare Work Phone: cNOVon [phone] Visit (NRMDN) ALTON BARKER ([id number]) 1940 F Date Time Provider Department 06/23/23 3:00 PM GLORIA PEREZ During your visit today, we recorded the following information about you: Weight Height 107.6 kg 1.676 m Gloria Perez APRN.MOLD CARRIER 06/23/2023 8:12 PM Signed [facility] - FOLLOW UP EVALUATION Honey Rabago DO [address] [place] [address] Dear Honey Rabago DO: I had the pleasure of seeing Ms. Barker for follow-up today. As you know she is a 82 year old right-handed female with a history of Parkinson's disease since 2013. She is seen with her son. Subjective Previous Plan-01/20/2023 Visit: Parkinson's disease: Continue current medication schedule but discuss with the die storage clerk if you can take the Sinemet on [...] control disorder: No No (more content not included)...NormalOhio[facility] HEMOGLOBINon 33-57-4609Ovtvgljyul (Bld) [Mass/Vol]11.7 g/dL Low12.0 - 16.0 g/dLNOMS HealthcareInterpretation and review of laboratory resultsAbnormalNOMS HealthcareCLINISYNCNOMS HealthcareRT PULMONARY FUNCTION TEST on 85-58-6869[place] [address] Respiratory Report Signed Patient: ALTON BARKER MR#: [id number] : 1940 Acct:[id number] Age/Sex: 82 / F ADM Date: 04/27/23 Loc: CARD Attending Dr: Non-Staff Physician Rigo Ordering Physician: Davide Salas M.D. Date of Service: 04/27/23 Procedure(s): RT pulmonary function test Accession Number(s): [id number] cc: [facility] Test Date: 2023-04-27 Pat Name: ALTON BARKER Department: Room: - Gender: Female Campaign Fundraiser: Tomas Ott RRT : 1940 Requested By: [id number] Order Number: [id number] Tanesha MD: Juani Martinez Interpretive Statements Pulmonary function [...] Dictated By: Juani Martinez D.O. Signed By: 04/27/231441 DD/ 22 TD/TT: Director Digital:DERICKadiologmatthias Radiologist, - 04/27/2023 [place] [address] Respiratory Report Signed Patient: ALTON BARKER MR#: [id number] : 1940 Acct:[id number] Age/Sex: 82 / F ADM Date: 04/27/23 Loc: CARD Attending Dr: Non-Staff Physician Rigo Ordering Physician: Davide Salas M.D. Date of Service: 04/27/23 Procedure(s): RT pulmonary function test Accession Number(s): [id number] cc: [facility] Test Date: 2023-04-27 Pat Name: ALTON BARKER Department: Room: - Gender: Female Campaign Fundraiser: Tomas Ott RRT : 1940 Requested By: [id number] Order Number: [id number] Reading MD: Juani Martinez Interpretive Statements Pulmonary [...] Dictated By: Juani Martinez D.O. Signed By: 04/27/231441 DD/ 1323 TD/TT: Director Digital: JENNIFER HealthcareRadiology Study observation (narrative)[facility] HealthcareRT PULMONARY FUNCTION TESTOrdered By: Radiologist Radiology on 40-97-8133UJDE [employer] Work Phone: ct CHEST WO CONon [phone] [address] [address] Scan Report Signed Patient: ALTON BARKER MR#: [id number] : 1940 Acct:[id number] Age/Sex: 82 / F ADM Date: 04/13/23 Loc: CT Attending Dr: Non-Staff Physician Rigo Ordering Physician: Davide Salas M.D. Date of Service: 04/13/23 Procedure(s): CT chest wo con Accession Number(s): [id number] cc: HONEY RABAGO [address] [address] Patient Name: ALTON BARKER MRN: [id number] date: 1940 Sex: F Assigned Patient Location: CT Current Patient Location: CT Accession/Order Number: [id number] Exam Date: 04/13/2023 12:45 Report Date: 04/13/2023 [...] By: Mode Rice M.D. Signed By: 04/13/23 1355 DD/ 1352 TD/TT: Director Digital:TBHRadiology, Radiologist, - 04/13/2023 [place] [address] CT Scan Report Signed Patient: ALTON BARKER MR#: [id number] : 1940 Acct:[id number] Age/Sex: 82 / F ADM Date: 04/13/23 Loc: CT Attending Dr: Non-Staff Physician Rigo Ordering Physician: Davide Salas M.D. Date of Service: 04/13/23 Procedure(s): CT chest wo con Accession Number(s): [id number] cc: HONEY RABAGO [place] [address] Patient Name: ALTON BARKER MRN: [id number] date: 1940 Sex: F Assigned Patient Location: CT Current Patient Location: CT Accession/Order Number: [id number] Exam Date: 04/13/2023 12:45 Report Date: 04/13/2023 [...] By: Mode Rice M.D. Signed By: 04/13/23 1355 DD/ 1352 TD/TT: Director Digital: [facility] HealthcareRadiology Study observation (narrative)[facility] HealthcareCT CHEST WO CONOrdered By: Radiologist Radiology on 29-20-0418OMBL Healthcare Work Phone: cULTURE URINEon 51-70-3593HUXLMUD URINEIsolate 1 Escherichia coli >100,000 cfu/mL of [...] Nitrofurantoin <=16 S F Trimethoprim/Sulfamethoxazole <=20 S FNormalThe [facility] North Health CenterComment on above:Performed By: #### URCX #### [facility] [address] [place] [address] Dr. Joyce Monet (CLEAN/CATCH) BLEND TECHNICIAN/MICRO IF IND.on 78-31-7997Nybgdpmji Ql (U) NegativeNormalNEGATIVEMadison HealthComment on above:Performed By: #### PAULY UACSIND #### [facility] [address] [place] [address] Dr. Joyce StraussClarity (U)CLEARNormalCLEARThe [facility] North Health CenterComment on above: Performed By: #### PAULY UACSIND #### [facility] [address] [address] [address] Joyce Cloud (U)LT. YELLOWNormalYELLOWMadison HealthComment on above:Performed By: #### PAULY UACSIND #### [facility] [address] [address] [address] Joyce StraussGlucose Ql (U)NegativeNormalNEGATIVEMadison HealthComment on above:Performed By: #### PAULY UACSIND #### [facility] [address] [address] [address] Joyce StraussHemoglobin Ql (U)NegativeNormalNEGTrinity Health System Comment on above:Performed By: #### PAULY UACSIND #### [facility] [address] [address] [address] Joyce StraussKetones Ql (U)NegativeNormalNEGATIVEMadison HealthComment on above:Performed By: #### PAULY UACSIND #### [facility] [address] [address] [address] Joyce StraussLEUKOCYTESLARGEAbnormalNEGTrinity Health SystemComment on above:Performed By: #### PAULY UACSIND #### [facility] [address] [address] [address] Joyce StraussNitrite Ql (U)PositiveAbnormalNEGTrinity Health System Comment on above:Performed By: #### PAULY UACSIND #### [facility] [address] [address] [address] Joyce StrausspH (U)5.5 [pH]Normal5-9The [facility] Health CenterComment on above: Performed By: #### PAULY UACSIND #### [facility] [address] [address] [address] Joyce StraussSPEC GRAVITY1.249Egowsb0.005-<=1.025The [facility] North Health CenterComment on above:Performed By: #### PAULY UACSIND #### [facility] [address] [address] [address] Joyce Monet PROTEINTRACENormalNEGATIVE/ TRACEThe [facility] North Health CenterComment on above:Performed By: #### PAULY UACSIND #### [facility] [address] [address] [address] Joyce Chopra MICRO INDINDICATEDCleveland Clinic Mercy HospitalComment on above: Performed By: #### PAULY UACSIND #### [facility] [address] [address] [address] Joyce Razo Qn (U)0.2 {Cam'U}/dLNormal0.2 - 1.0The [facility] CenterComment on above:Performed By: #### PAULY UACSIND #### [facility] [address] [address] [address] Joyce Ornelas MICROSCOPIC ONLYon 80-01-0364IWWMAMRCECUMCNefvubjeJIQO SEEN [facility] HealthComhen[facility] for[facility] hospital on above:Performed By: #### PAULY UACSIND #### [facility] [address] [address] [address] Joyce Lala identified Cx Nom (U)INDICATEDCleveland Clinic Mercy HospitalComhenry ford hospital on above:Performed By: #### PAULY UACSIND #### [facility] [address] [address] [address] Joyce Jean OX CRYSTALSRARENormalThe [facility] North Health CenterComhenry ford hospital on above: Performed By: #### PAULY UACSIND #### [facility] [address] [address] [address] Joyce Couch SEENNormalNONE SEENParkview Health Bryan Hospital on above:Performed By: #### PAULY UACSIND #### [facility] [address] [address] [address] Joyce Franksystals LM Nom (Urine sed)SEENAbnormalNONE SEENMadison HealthComhenry ford hospital on above:Performed By: #### PAULY UACSIND #### [facility] [address] [address] [address] Cook ChangEpithelial cells LM Ql (Urine sed)FEWAbnormalNONE SEEN /RAREThe [facility] North Health CenterComhenry ford hospital on above:Performed By: #### PAULY UACSIND #### [facility] [address] [address] [address] Joyce Ortega SEENNormalNONE SEENMadison HealthComment on above:Performed By: #### PAULY UACSIND #### [facility] [address] [place] [address] Dr. Joyce Johnson SEENAbnormal0-2The [facility] Health CenterComhenry ford hospital on above: Performed By: #### PAULY UACSIND #### [facility] [address] [place] [address] Dr. Joyce Corona (U) [#/Vol]/uLAbnormalNONE SEENThe [facility] North Health CenterComment on above:Performed By: #### PAULY UACSIND #### [facility] [address] [place] [address] Dr. Joyce Solorzano URINEon 86-48-8668REMMCJQ URINEIsolate 1 Escherichia coli >100,000 cfu/mL of [...] Nitrofurantoin <=16 S F Trimethoprim/Sulfamethoxazole <=20 S FNormalThe [facility] CenterComment on above:Performed By: #### URCX #### [facility] [address] [place] [address] Dr. Joyce Jovel 06-13-9221Oaheucgow Ql (U)NegativeNormalNEGATIVEMadison HealthComment on above:Performed By: #### UA #### [facility] [address] [address] [address] Joyce Mckeonarity (U)CLOUDYAbnormalCLEARThOhioHealth Doctors HospitalComment on above:Performed By: #### UA #### [facility] [address] [address] [address] Joyce Harplor (U)YELLOWNormalYELLOWMadison HealthComment on above: Performed By: #### UA #### [facility] [address] [address] [address] Joyce StraussGlucose Ql (U)NegativeNormalNEGTrinity Health SystemComment on above:Performed By: #### UA #### [facility] [address] [address] [address] Joyce StraussHemoglobin Ql (U)MODERATEAbnormalNEGTrinity Health System Comment on above:Performed By: #### UA #### [facility] [address] [address] [address] Joyce StraussKetones Ql (U)NegativeNormalNEGTrinity Health SystemComhenry ford hospital on above:Performed By: #### UA #### [facility] [address] [address] [address] Joyce StraussLEUKOCYTESLARGEAbnormalNEGTrinity Health SystemComment on above:Performed By: #### UA #### [facility] [address] [address] [address] Joyce StraussNitrite Ql (U)PositiveAbnormalNEGTrinity Health System Comment on above:Performed By: #### UA #### [facility] [address] [address] [address] Joyce StrausspH (U)6.0 [pH]Normal5-9Madison HealthComment on above: Performed By: #### UA #### [facility] [address] [address] [address] Joyce Dunlap GRAVITY1.294Kuypow7.005-<=1.025The [facility] North Health CenterComment on above:Performed By: #### UA #### [facility] [address] [place] [address] Dr. Joyce Monet WSBPHTI688 mg/dlAbnormalNEGATIVE/ TRACEThe [facility] Comment on above:Performed By: #### UA #### [facility] [address] [address] [address] Joyce StraussUrobilinogen Qn (U)1.0 {Cam'U}/dLNormal0.2 - 1.0The [facility] Health CenterComment on above:Performed By: #### UA #### [facility] [address] [place] [address] Dr. Joyce Ornelas culture routineOrdered By: Honey Rabago on 01-01-2022 Bacteria identified Cx Nom (U)Escherichia coliAultman Orrville Hospital Automated erythrocytes count in urine sediment (number/area)Ordered By: Hoeny Rabago on 51-09-1621NYW Auto (Urine sed) [#/Area]3-4 [HPF]0-4FGood Samaritan HospitalAutomated leukocytes count in urine sediment (number/area)Ordered By: Honey Rabago on 70-43-6495UJY Auto (Urine sed) [#/Area]50-100 [HPF]0-4 [facility] Orrville HospitalBilirubin Test strip Ql (U)Ordered By: Honey Rabago on 70-79-8071Htwbvvqhj Ql (U)NegativeNegativeAultman Orrville HospitalColor Auto (U)Ordered By: Honey Rabago on 94-84-1556Grgum (U)Yellow YellowAultman Orrville HospitalKetones Auto test strip (U) [Mass/Vol] Ordered By: Honey Rabago on 44-83-0531Palauno (U) [Mass/Vol]NegativeNegative [facility] HospitalLaboratory - UrinalysisOrdered By: Honey Rabago on 47-11-9206Juvctcw casts LM Ql (Urine sed)0-8 [LPF]0-8Aultman Orrville HospitalNitrite Test strip Ql (U)Ordered By: Honey Rabago on 43-33-3137Hmoiopc Ql (U)PositiveNegKindred Hospital LimaProtein Auto test strip (U) [Mass/Vol]Ordered By: Honey Rabago on 94-46-5525Xujjpzs (U) [Mass/Vol]Trace mg/dLNegMemorial Hospitalpecific gravity Auto test strip (U) [Rel density]Ordered By: Honey Rabago on 44-57-7449Umpxgoye gravity (U) [Rel density]1.0171.001-1.030[facility] Hospitalquamous epithelial cells detection in urine sediment by light microscopyOrdered By: Honey Rabago on 35-09-1431Ldsftwjlnh cells.squamous LM Ql (Urine sed)1-2 [HPF]0-2FGood Samaritan HospitalUrine bacteria detection by automated methodOrdered By: Honey Rabago on 39-97-3912Teenqtrv Auto Ql (U)1+None SeenAultman Orrville HospitalUrine clarity by refractometry automatedOrdered By: Honey Rabago on 99-94-3029Mnseyqj Refractometry automated (U)CloudyCleWilson Memorial HospitalUrine glucose measurement by automated test strip (mass/volume)Ordered By: Honey Rabago on 50-70-3983Uobauqi Auto test strip (U) [Mass/Vol]Normal mg/dLGrand Lake Joint Township District Memorial HospitalUrine hemoglobin detection by automated test stripOrdered By: Honey Rabago on 12-66-1885Pmgahiksds Auto test strip Ql (U) NegativeNegKindred Hospital LimaUrine leukocyte esterase detection by automated test stripOrdered By: Honey Rabago on 12-30-2021 Leukocyte esterase Auto test strip Ql (U)3+NegativeAultman Orrville HospitalUrine sediment crystal identification by light microscopyOrdered By: Honey Rabago on 55-93-2413Ycncsegv LM Nom (Urine sed)None seen [HPF][facility] Orrville HospitalUrobilinogen Auto test strip (U) [Mass/Vol]Ordered By: Honey Rabago on 82-27-5639Erakagchjtxd (U) [Mass/Vol]Normal mg/dLNoMercy Health – The Jewish HospitalpH Auto test strip (U)Ordered By: Honey Rabago on 04-22-1324kG (U)8.5 [pH]5.0-9.0[facility] PROTIMEon 31-72-0551BXC Coag (PPP) [Relative time]2.34 {INR}NormalMadison HealthComment on above:Performed By: #### PT #### [facility] [address] [place] [address] Dr. Joyce Bear GUIDELINESSEE [facility] - Southeast OhioComment on above:Result Comment: DESIRED INR: 2.0 - 3.0 CONDITIONS NOT LISTED BELOW 2.5 - 3.5 FOR PROSTHETIC HEART VALVE REPLACEMENT 2.5 - 3.5 RECURRENT THROMBOSIS Performed By: #### PT #### [facility] [address] [place] [address] Dr. Joyce You Coag (PPP) [Time]23.9 sCritically high9.0-11.6The [facility] North Health CenterComment on above:Performed By: #### PT #### [facility] [address] [place] [address] Dr. Joyce StraussPROTIMEon 07-72-6394GFC GUIDELINESSEE BELOWCleveland Clinic Mercy HospitalComment on above:Result Comment: DESIRED INR: 2.0 - 3.0 CONDITIONS NOT LISTED BELOW 2.5 - 3.5 FOR PROSTHETIC HEART VALVE REPLACEMENT 2.5 - 3.5 RECURRENT THROMBOSISPerformed By: #### PT #### [facility] [address] [place] [address] Dr. Joyce You Coag (PPP) [Time]20.6 sCritically high9.0-11.6ThOhioHealth Doctors HospitalComment on above:Performed By: #### PT #### [facility] [address] [place] [address] Dr. Joyce StraussProthrombin Time INRon 58-76-6236Fvvfdpqqdnu Time INRNort [facility] [employer] Other INR Coag (PPP) [Relative time]2.00 {INR}NormalRound Mountain CenterPoint - [employer] Other Comment on above:Performed By: #### PT #### [facility] [address] [address] [address] Joyce StraussPROTIMEon 97-92-6896HRE GUIDELINESSEE [facility] - Southeast OhioComment on above:Result Comment: DESIRED INR: 2.0 - 3.0 CONDITIONS NOT LISTED BELOW 2.5 - 3.5 FOR PROSTHETIC HEART VALVE REPLACEMENT 2.5 - 3.5 RECURRENT THROMBOSISPerformed By: #### PT #### [facility] [address] [address] [address] Joyce StraussPT Coag (PPP) [Time]25.9 sCritically high9.0-11.6The [facility] North Health CenterComment on above:Performed By: #### PT #### [facility] [address] [place] [address] Dr. Joyce StraussProthrombin Time INRon [id number] Time INRRound Mountain CenterPoint - [employer] Other INR Coag (PPP) [Relative time]2.55 {INR}[facility] Other Comment on above:Performed By: #### PT #### [facility] [address] [place] [address] Dr. Joyce StraussGlucose Glucometer ([facility]) [Mass/Vol]Ordered By: Alcides Moya on 58-31-4802Peucrax [Mass/Vol]125 mg/dLAultman Orrville HospitalComment on above:Random Glucose Reference Range is dependent on time and content of last meal. Glucose of more than 200 mg/dL in a nonstressed, ambulatory subject supports the diagnosis of Diabetes Mellitus.Laboratory - CoagulationOrdered By: Alcides Moya on 09-83-6623RO Coag (PPP) [Time]25.5 s9.0-12.9[facility]rville HospitalPlatelet poor plasma international normalized ratio (INR) by coagulation assay (relatOrdered By: Alcides Moya on 47-30-0870ATD Coag (PPP) [Relative time]2.2 {INR}[facility]rville HospitalComment on above:INR Therapeutic Range A) Pre- and [...] Auto (Bld) [#/Vol]Ordered By: Elham Mendoza on 13-23-3299Qljkyshsm (Bld) [#/Vol]NFirelands Regional Medical CenterBasophils/100 WBC Auto (Bld)Ordered By: Elham Mendoza on 09-88-6970Bqqludwwf/100 WBC (Bld)[facility] CenterBlood anisocytosis detectionOrdered By: Elham Mendoza on 01-03-8350Lvqdafgvnzvt Ql (Bld)ModerateAultman Orrville HospitalBlood hemoglobin measurement (mass/volume)Ordered By: Elham Mendoza on 11-24-2021 Hemoglobin (Bld) [Mass/Vol]11.4 g/dL11.8-15.4FGood Samaritan Hospital Blood leukocytes automated count (number/volume)Ordered By: Elham Mendoza on 83-18-4358WFY (Bld) [#/Vol]6.0 10*3/uL4.5-11.0[facility] Creatinine and Glomerular filtration rate.predicted panel (S/P/Bld)Ordered By: Elham Mendoza on 97-65-4896Paqefamgiq [Mass/Vol]0.53 mg/dL0.44-1.03[facility] HospitalEosinophils Auto (Bld) [#/Vol]Ordered By: Elham Mendoza on 00-05-4115Ythrssnfitx (Bld) [#/Vol]N/[facility] HospitalEosinophils/100 WBC Auto (Bld)Ordered By: Elham Mendoza on 11-24-2021 Eosinophils/100 WBC (Bld)N/[facility] HospitalErythrocyte distribution width Auto (RBC) [Ratio]Ordered By: Elham Mendoza on 11-24-2021 Erythrocyte distribution width (RBC) [Ratio]18.4 %11.9-15.3FGood Samaritan HospitalEstimated glomerular filtration rate (GFR) non- Ordered By: Elham Mendoza on 34-92-9067GSP/1.73 sq M.predicted among non- blacks MDRD (S/P/Bld) [Vol rate/Area]> 60 mL/MinAultman Orrville HospitalHematocrit Auto (Bld) [Volume fraction]Ordered By: Elham Mendoza on 93-35-9131Lmkbugdvfr (Bld) [Volume fraction]34.9 %34.0-46.4FGood Samaritan HospitalLaboratory - Hematology and Cell countsOrdered By: Elham Mendoza on 62-15-9832Qaozdtpru RBC/100 WBC (Bld) [Ratio]0.5 %0-0.5FGood Samaritan HospitalLymphocytes Auto (Bld) [#/Vol]Ordered By: Elham Mendoza on 54-36-4515Inxuhrqpinh (Bld) [#/Vol]N/[facility] HospitalLymphocytes/100 WBC Auto (Bld)Ordered By: Elham Mendoza on 11-24-2021 Lymphocytes/100 WBC (Bld)N/[facility] HospitalLymphocytes/100 WBC (Bld)35 %18-42A[facility]rville HospitalLymphocytes/100 WBC Manual cnt (Bld)Ordered By: Elham Mendoza on 42-32-6335Umlywfxybwo/100 WBC (Bld)1 %0-12 [facility] Auto (RBC) [Entitic mass]Ordered By: Elham Mendoza on 76-52-8875YXV (RBC) [Entitic mass]29.9 pg24.7-34.3FSalem Regional Medical Center Auto (RBC) [Mass/Vol]Ordered By: Elham Mendoza on 50-39-8632UZGJ (RBC) [Mass/Vol]32.8 g/dL32.0-35.0[facility] HospitalMCV Auto (RBC) [Entitic vol]Ordered By: Elham Mendoza on 91-34-0769FEF (RBC) [Entitic vol]91.2 iT07-555HoljdxyitAultman Orrville HospitalMonocyte % Ordered By: Elham Mendoza on 81-43-4116Phkscipsh/100 WBC (Bld)2 %1-3FGood Samaritan HospitalMonocytes Auto (Bld) [#/Vol]Ordered By: Elham Mendoza on 03-79-1138Zmzbjvwlq (Bld) [#/Vol]N/[facility] Monocytes/100 WBC Auto (Bld)Ordered By: Elham Mendoza on 11-24-2021 Monocytes/100 WBC (Bld)N/[facility] HospitalMonocytes/100 WBC Manual cnt (Bld)Ordered By: Elham Mendoza on 70-36-6049Oyugjrhiw/100 WBC (Bld)7 %2-11[facility] HospitalMyelocytes/100 WBC Manual cnt (Bld) Ordered By: Elham Mendoza on 59-16-4704Rktacaybqe/100 WBC (Bld)1 %0-0 [facility] HospitalNeutrophils Auto (Bld) [#/Vol]Ordered By: Elham Mendoza on 10-56-4134Iutccekkwxl (Bld) [#/Vol]N/[facility] HospitalNeutrophils/100 WBC Auto (Bld)Ordered By: Elham Mendoza on 11-24-2021 Neutrophils/100 WBC (Bld)N/[facility] HospitalNo Panel InformationOrdered By: Elham Mendoza on 05-33-0996Hgjbergki GFR ()> 60 mL/MinAultman Orrville HospitalComment on above:GFR estimated reference range: According to KDOQI guidelines, <60 ml/min/1.73m2 is sufficient todiagnose a patient with chronic kidney disease.Pharmacy Creatinine Clearance (Chem64.37[facility] HospitalPlatelet EstimateNormal NormalAultman Orrville HospitalPlatelet Morphology CommentNormalNormal [facility]rville HospitalPlatelet mean volume Auto (Bld) [Entitic vol] Ordered By: Elham Mendoza on 73-90-0377Jomieabo mean volume (Bld) [Entitic vol]8.8 fL6.3-10.7FGood Samaritan HospitalPlatelets Auto (Bld) [#/Vol] Ordered By: Elham Mendoza on 48-55-8169Ifduzhxya (Bld) [#/Vol]285 10*3/uL 150-450A[facility]rville HospitalRBC Auto (Bld) [#/Vol]Ordered By: Elham Mendoza on 80-33-7054APF (Bld) [#/Vol]3.82 10*6/uL3.60-5.00[facility] morphologyOrdered By: Elham Mendoza on 41-92-0868NZF morphology finding Nom (Bld)N/AFOhioHealth O'Bleness Hospitalegmented neutrophils/100 WBC Manual cnt (Bld)Ordered By: Elham Mendoza on 11-24-2021 Segmented neutrophils/100 WBC (Bld)54 %50-70[facility] Serum or plasma anion gap determinationOrdered By: Elham Mendoza on 60-36-2960Xzexp gap [Moles/Vol]11.8 mmol/L6.0-15.0[facility] Hospitalerum or plasma calcium measurement (mass/volume)Ordered By: Elham Mendoza on 55-03-3233Tykklhy [Mass/Vol]8.7 mg/dL8.2-10.2FOhioHealth O'Bleness Hospitalerum or plasma chloride measurement (moles/volume)Ordered By: Elham Mendoza on 01-67-9622Elybiilh [Moles/Vol]103 mmol/K15-202HbvejykzyMemorial Health System Marietta Memorial Hospitalerum or plasma glucose measurement (mass/volume)Ordered By: Elham Mendoza on 65-73-6339Ayjwwwy [Mass/Vol]138 mg/lG73-840WzjrxuawnAultman Orrville HospitalComment on above:ADA recommended reference range Random Glucose [...] potassium measurement (moles/volume)Ordered By: Elham Mendoza on 55-48-2933Qstumpxjy [Moles/Vol]3.9 mmol/L3.5-5.1 [facility] Hospitalerum or plasma sodium measurement (moles/volume)Ordered By: Elham Mendoza on 70-20-4030Pzuviq [Moles/Vol]139 mmol/X071-633NzmlshzcgMemorial Health System Marietta Memorial Hospitalerum or plasma total carbon dioxide measurement (moles/volume)Ordered By: Elham Mendoza on 01-26-4496HR6 [Moles/Vol]28.1 mmol/L22.0-30.0[facility] Hospitalerum or plasma urea nitrogen measurement (mass/volume)Ordered By: Elham Mendoza on 96-65-4117Sqhs nitrogen [Mass/Vol]6 mg/dL9-23[facility] HospitalNo Panel InformationOrdered By: Alcides Moya on 74-11-6101Aeaqakn Glucose Comment Glu2: cleaned meterAultman Orrville HospitalCT biopsyOrdered By: Amanda Jaimes on 32-96-3801Vskqndugfiw [Mass/Vol]173 mg/wY216-661MbqlciwutAultman Orrville HospitalIron [Mass/volume] in Serum or PlasmaOrdered By: Amanda Jaimes on 50-27-6403Dgod [Mass/Vol]56 ug/yR58-902DprgqmmxuAultman Orrville HospitalIron binding capacity [Mass/volume] in Serum or PlasmaOrdered By: Amanda Jaimes on 55-28-8291Esei binding capacity [Mass/Vol]242 ug/xB026-222NcdetzwxlAultman Orrville HospitalIron saturation [Mass Fraction] in Serum or PlasmaOrdered By: Amanda Jaimes on 91-64-2995Eufm saturation [Mass fraction]23.0 %20-50A[facility] HospitalGlucose Glucometer (BldC) [Mass/Vol]Ordered By: Alcides Moya on 52-23-9253Psvdysn [Mass/Vol]146 mg/dLAultman Orrville Hospital Comment on above:Random Glucose Reference Range is dependent on time and content of last meal. Glucose of more than 200 mg/dL in a nonstressed, ambulatory subject supports the diagnosis of Diabetes Mellitus.Laboratory - Coagulation Ordered By: Alcides Moya on 37-38-4024YL Coag (PPP) [Time]29.5 s9.0-12.9 [facility] HospitalNo Panel InformationOrdered By: Alcides Moya on 09-17-3666Qkoutvr Glucose CommentGlu2: cleaned meterAultman Orrville HospitalPlatelet poor plasma international normalized ratio (INR) by coagulation assay (relatOrdered By: Alcides Moya on 05-72-2191NQM Coag (PPP) [Relative time] 2.6 {INR}[facility] HospitalComment on above:INR Therapeutic Range A) Pre- and [...] Serum or PlasmaOrdered By: Alcides Moya on 31-76-0769Reagkbq [Mass/Vol]3.1 g/dL 3.2-5.5FGood Samaritan HospitalBasophils Auto (Bld) [#/Vol]Ordered By: Alcides Moya on 51-90-1333Gchedakwf (Bld) [#/Vol]0.0 10*3/uL0.0-0.2FGood Samaritan HospitalBasophils/100 WBC Auto (Bld)Ordered By: Alcides Moya on 11-20-1087Eoipsxkpv/100 WBC (Bld)0.5 %.[facility] HospitalBlood hemoglobin measurement (mass/volume)Ordered By: Alcides Moya on 11-12-2021 Hemoglobin (Bld) [Mass/Vol]12.5 g/dL11.8-15.4FGood Samaritan Hospital Blood leukocytes automated count (number/volume)Ordered By: Alcides Moya on 65-03-3586DYY (Bld) [#/Vol]5.0 10*3/uL4.5-11.0[facility] Creatinine and Glomerular filtration rate.predicted panel (S/P/Bld)Ordered By: Alcides Moya on 29-76-1360Tdyyjkppdy [Mass/Vol]0.55 mg/dL0.44-1.03[facility] HospitalEosinophils Auto (Bld) [#/Vol]Ordered By: Alcides Moya on 38-99-0841Gzzjsntmane (Bld) [#/Vol]0.2 10*3/uL0.0-0.45[facility] HospitalEosinophils/100 WBC Auto (Bld)Ordered By: Alcides Moya on 83-38-1681Dvztantvwds/100 WBC (Bld)3.8 %.[facility] Erythrocyte distribution width Auto (RBC) [Ratio]Ordered By: Alcides Moya on 92-71-6866Bcnufxucqnw distribution width (RBC) [Ratio]17.3 %11.9-15.3FGood Samaritan HospitalEstimated glomerular filtration rate (GFR) non- AmericanOrdered By: Alcides Moya on 32-52-7007CXM/1.73 sq M.predicted among non- blacks MDRD (S/P/Bld) [Vol rate/Area]> 60 mL/MinAultman Orrville HospitalGlobulin Calc (S) [Mass/Vol]Ordered By: Alcides Moya on 10-99-2517Blgwsqew (S) [Mass/Vol]3.7 g/dLAultman Orrville HospitalGlucose Glucometer (BldC) [Mass/Vol]Ordered By: Alcides Moya on 81-70-4926Intztyj [Mass/Vol]212 mg/dLAultman Orrville HospitalComment on above:Random Glucose Reference Range is dependent on time and content of last meal. Glucose of more than 200 mg/dL in a nonstressed, ambulatory subject supports the diagnosis of Diabetes Mellitus.Hematocrit Auto (Bld) [Volume fraction]Ordered By: Alcides Moya on 08-72-6721Mhdlbhnbhl (Bld) [Volume fraction]38.9 %34.0-46.4FGood Samaritan HospitalLaboratory - CoagulationOrdered By: Alcides Moya on 70-65-8310AR Coag (PPP) [Time]34.1 s9.0-12.9[facility] HospitalLaboratory - Hematology and Cell countsOrdered By: Alcides Moya on 79-59-9347Epdjihtum RBC/100 WBC (Bld) [Ratio]0.0 %0-0.5FGood Samaritan HospitalLymphocytes Auto (Bld) [#/Vol]Ordered By: Alcides Moya on 51-19-3551Tzhmbtezbil (Bld) [#/Vol]2.0 10*3/uL1.00-4.8[facility] HospitalLymphocytes/100 WBC Auto (Bld)Ordered By: Alcides Moya on 15-38-2876Qttacerpyhr/100 WBC (Bld)39.7 %. [facility] Auto (RBC) [Entitic mass]Ordered By: Alcides Moya on 16-51-8268BOQ (RBC) [Entitic mass]29.2 pg24.7-34.3FGood Samaritan HospitalMCHC Auto (RBC) [Mass/Vol]Ordered By: Alcides Moya on 11-12-2021 MCHC (RBC) [Mass/Vol]32.2 g/dL32.0-35.0[facility] HospitalMCV Auto (RBC) [Entitic vol]Ordered By: Alcides Moya on 97-07-9455DTS (RBC) [Entitic vol]90.6 wB23-960SmrlkhfoiAultman Orrville HospitalMonocytes Auto (Bld) [#/Vol] Ordered By: Alcides Moya on 21-31-6188Pmzfewzyg (Bld) [#/Vol]0.5 10*3/uL0.0-0.8 [facility] HospitalMonocytes/100 WBC Auto (Bld)Ordered By: Alcides Moya on 30-77-2981Fwnfjkmuc/100 WBC (Bld)10.1 %.[facility] HospitalNeutrophils Auto (Bld) [#/Vol]Ordered By: Alcides Moya on 11-12-2021 Neutrophils (Bld) [#/Vol]2.3 10*3/uL1.8-7.7FGood Samaritan Hospital Neutrophils/100 WBC Auto (Bld)Ordered By: Alcides Moya on 11-12-2021 Neutrophils/100 WBC (Bld)45.9 %.[facility] HospitalNo Panel InformationOrdered By: Alcides Moya on 28-38-7283Uqhczim Glucose CommentGlu2: cleaned meterAultman Orrville HospitalEstimated GFR ()> 60 mL/MinAultman Orrville HospitalComment on above:GFR estimated reference range: According to KDOQI guidelines, <60 ml/min/1.73m2 is sufficient todiagnose a patient with chronic kidney disease.Pharmacy Creatinine Clearance (Chem64.44[facility]rville HospitalPlatelet mean volume Auto (Bld) [Entitic vol]Ordered By: Alcides Moya on 17-89-8428Hesgjysa mean volume (Bld) [Entitic vol]8.6 fL6.3-10.7FGood Samaritan HospitalPlatelet poor plasma international normalized ratio (INR) by coagulation assay (relatOrdered By: Alcides Moya on 14-16-9993AVE Coag (PPP) [Relative time]3.0 {INR}[facility] HospitalComment on above:INR Therapeutic Range A) Pre- and [...] Auto (Bld) [#/Vol]Ordered By: Alcides Moya on 49-93-4996Axmxpoxbc (Bld) [#/Vol]241 10*3/uL 150-450[facility] HospitalProtein [Mass/volume] in Serum or Plasma Ordered By: Alcides Moya on 85-26-1248Eqeclnz [Mass/Vol]6.8 g/dL6.1-7.9[facility] HospitalRBC Auto (Bld) [#/Vol]Ordered By: Alcides Moya on 05-55-3233JSF (Bld) [#/Vol]4.29 10*6/uL3.60-5.00[facility] Hospitalerum or plasma alanine aminotransferase measurement without P-5'-P (enzymatic activiOrdered By: Alcides Moya on 71-77-5155JYL No additional P-5'-P [Catalytic activity/Vol]13 U/H67-59SiibkfuhwMemorial Health System Marietta Memorial Hospitalerum or plasma albumin/globulin mass ratioOrdered By: Alcides Moya on 11-12-2021 Albumin/Globulin [Mass ratio]0.8 {ratio}[facility] Hospitalerum or plasma alkaline phosphatase measurement (enzymatic activity/volume)Ordered By: Alcides Moya on 31-52-3427FZE [Catalytic activity/Vol]84 U/J12-20MxfybexxpMemorial Health System Marietta Memorial Hospitalerum or plasma anion gap determinationOrdered By: Alcides Moya on 49-61-5297Mpkep gap [Moles/Vol]11.9 mmol/L6.0-15.0[facility] Hospitalerum or plasma aspartate aminotransferase measurement (enzymatic activity/volume)Ordered By: Alcides Moya on 02-41-1296IDU [Catalytic activity/Vol]22 U/J44-43WmwcjpiqjMemorial Health System Marietta Memorial Hospitalerum or plasma calcium measurement (mass/volume)Ordered By: Alcides Moya on 95-04-8602Vpfemfu [Mass/Vol]9.2 mg/dL8.2-10.2FOhioHealth O'Bleness Hospitalerum or plasma chloride measurement (moles/volume)Ordered By: Alcides Moya on 11-12-2021 Chloride [Moles/Vol]100 mmol/D97-722KcmdrldixMemorial Health System Marietta Memorial Hospitalerum or plasma glucose measurement (mass/volume)Ordered By: Alcides Moya on 11-12-2021 Glucose [Mass/Vol]130 mg/zK38-685VngdphjlpAultman Orrville HospitalComment on above:ADA recommended reference range Random Glucose Reference Range is dependent on time and content of last meal. Glucose of more than 200 mg/dL in a nonstressed, ambulatory subject supports the diagnosis of Diabetes Mellitus.Serum or plasma potassium measurement (moles/volume)Ordered By: Alcides Moya on 54-93-6284Xnvmeaxgh [Moles/Vol]3.9 mmol/L3.5-5.1FOhioHealth O'Bleness Hospitalerum or plasma prealbumin measurement (mass/volume)Ordered By: Alcides Moya on 73-05-7431Jsoikdxxnh [Mass/Vol]21.7 mg/dL18.0-38.0[facility] Hospitalerum or plasma sodium measurement (moles/volume)Ordered By: Alcides Moya on 27-32-5865Zrrlgr [Moles/Vol]139 mmol/A044-050GmuyolyrwMemorial Health System Marietta Memorial Hospitalerum or plasma total bilirubin measurement (mass/volume)Ordered By: Alcides Moya on 11-12-2021 Bilirubin [Mass/Vol]0.8 mg/dL0.3-1.2FOhioHealth O'Bleness Hospitalerum or plasma total carbon dioxide measurement (moles/volume)Ordered By: Alcides Moya on 23-85-1187CN1 [Moles/Vol]31.0 mmol/L22.0-30.0[facility] Hospitalerum or plasma urea nitrogen measurement (mass/volume)Ordered By: Alcides Moya on 07-01-1335Nppj nitrogen [Mass/Vol]8 mg/dL9-23[facility] HospitalGlucose Glucometer (BldC) [Mass/Vol]Ordered By: Gaye Claire on 09-34-3337Nspzlmg [Mass/Vol]127 mg/dLAultman Orrville HospitalComment on above:Random Glucose Reference Range is dependent on time and content of last meal. Glucose of more than 200 mg/dL in a nonstressed, ambulatory subject supports the diagnosis of Diabetes Mellitus.Laboratory - CoagulationOrdered By: Enrrique Mota on 90-47-4031NJ Coag (PPP) [Time]31.5 s9.0-12.9[facility] HospitalNo Panel InformationOrdered By: Gaye Claire on 11-11-2021 Bedside Glucose CommentGlu2: cleaned meterAultman Orrville Hospital Platelet poor plasma international normalized ratio (INR) by coagulation assay (relatOrdered By: Enrrique Mota on 22-41-4077WEC Coag (PPP) [Relative time]2.7 {INR}[facility] HospitalComment on above:INR Therapeutic Range A) Pre- and [...] Auto (Bld) [#/Vol]Ordered By: Faustina Barr on 05-76-7639Zbzvchdft (Bld) [#/Vol]0.0 10*3/uL0.0-0.2FGood Samaritan HospitalBasophils/100 WBC Auto (Bld)Ordered By: Faustina Barr on 41-85-7660Supgpyfjs/100 WBC (Bld)0.5 %. [facility] HospitalBlood hemoglobin measurement (mass/volume) Ordered By: Faustina Barr on 30-59-8484Nwxavvyuhe (Bld) [Mass/Vol]11.8 g/dL 11.8-15.4FGood Samaritan HospitalBlood leukocytes automated count (number/volume)Ordered By: Faustina Barr on 12-73-1479QGV (Bld) [#/Vol]5.6 10*3/uL4.5-11.0[facility] HospitalCreatinine and Glomerular filtration rate.predicted panel (S/P/Bld)Ordered By: Faustina Barr on 06-11-2854Anopezvffr [Mass/Vol]0.63 mg/dL0.44-1.03[facility] HospitalEosinophils Auto (Bld) [#/Vol]Ordered By: Faustina Barr on 11-06-2021 Eosinophils (Bld) [#/Vol]0.2 10*3/uL0.0-0.45[facility] Eosinophils/100 WBC Auto (Bld)Ordered By: Faustina Barr on 11-06-2021 Eosinophils/100 WBC (Bld)3.9 %.[facility] HospitalErythrocyte distribution width Auto (RBC) [Ratio]Ordered By: Faustina Barr on 11-06-2021 Erythrocyte distribution width (RBC) [Ratio]16.6 %11.9-15.3FGood Samaritan HospitalEstimated glomerular filtration rate (GFR) non- Ordered By: Faustina Barr on 74-53-2029KHJ/1.73 sq M.predicted among non-blacks MDRD (S/P/Bld) [Vol rate/Area]> 60 mL/MinAultman Orrville Hospital Hematocrit Auto (Bld) [Volume fraction]Ordered By: Faustina Barr on 11-06-2021 Hematocrit (Bld) [Volume fraction]37.0 %34.0-46.4FGood Samaritan HospitalLaboratory - Hematology and Cell countsOrdered By: Faustina Barr on 14-81-4956Loidocmic RBC/100 WBC (Bld) [Ratio]0.1 %0-0.5FGood Samaritan HospitalLymphocytes Auto (Bld) [#/Vol]Ordered By: Faustina Barr on 75-51-2387Ijxlsuivzon (Bld) [#/Vol]2.1 10*3/uL1.00-4.8[facility] HospitalLymphocytes/100 WBC Auto (Bld)Ordered By: Faustina Barr on 11-06-2021 Lymphocytes/100 WBC (Bld)37.6 %.[facility] Auto (RBC) [Entitic mass]Ordered By: Faustina Barr on 04-60-7987UNQ (RBC) [Entitic mass] 28.8 pg24.7-34.3FGood Samaritan HospitalMCHC Auto (RBC) [Mass/Vol] Ordered By: Faustina Barr on 41-44-4300SGPL (RBC) [Mass/Vol]31.9 g/dL32.0-35.0 [facility] HospitalMCV Auto (RBC) [Entitic vol]Ordered By: Faustina Barr on 92-57-7973XSG (RBC) [Entitic vol]90.5 nV58-805GkjgwjiesAultman Orrville HospitalMonocytes Auto (Bld) [#/Vol]Ordered By: Faustina Barr on 31-84-8690Qlljgnknu (Bld) [#/Vol]0.7 10*3/uL0.0-0.8[facility] HospitalMonocytes/100 WBC Auto (Bld)Ordered By: Faustina Barr on 11-06-2021 Monocytes/100 WBC (Bld)12.7 %.[facility] HospitalNeutrophils Auto (Bld) [#/Vol]Ordered By: Faustina Barr on 85-28-9537Rkghigxcmwu (Bld) [#/Vol] 2.5 10*3/uL1.8-7.7FGood Samaritan HospitalNeutrophils/100 WBC Auto (Bld)Ordered By: Faustina Barr on 18-51-2869Vszepfbehgo/100 WBC (Bld)45.3 %. [facility] HospitalNo Panel InformationOrdered By: Faustina Barr on 69-86-7053Fduuyedca GFR ()> 60 mL/MinAultman Orrville HospitalComment on above:GFR estimated reference range: According to KDOQI guidelines, <60 ml/min/1.73m2 is sufficient todiagnose a patient with chronic kidney disease.Pharmacy Creatinine Clearance (Chem65.08[facility] HospitalPlatelet mean volume Auto (Bld) [Entitic vol]Ordered By: Faustina Barr on 73-98-7052Irczatjt mean volume (Bld) [Entitic vol]8.3 fL6.3-10.7 [facility] HospitalPlatelets Auto (Bld) [#/Vol]Ordered By: Faustina Barr on 21-04-9503Thocgxawv (Bld) [#/Vol]298 10*3/dG448-559JquqwbqepAultman Orrville HospitalRBC Auto (Bld) [#/Vol]Ordered By: Faustina Barr on 92-61-2087OTC (Bld) [#/Vol]4.09 10*6/uL3.60-5.00[facility] Hospitalerum or plasma calcium measurement (mass/volume)Ordered By: Faustina aBrr on 41-21-4387Rwjperf [Mass/Vol]9.1 mg/dL8.2-10.2FOhioHealth O'Bleness Hospitalerum or plasma chloride measurement (moles/volume)Ordered By: Faustina Barr on 07-06-2396Qkumdxcb [Moles/Vol]98 mmol/O58-430WkdlfxujmMemorial Health System Marietta Memorial Hospitalerum or plasma glucose measurement (mass/volume)Ordered By: Faustina Barr on 34-07-1805Apvkvbu [Mass/Vol]159 mg/aN37-519BwkinyfyqAultman Orrville HospitalComment on above:ADA recommended reference range Random Glucose [...] potassium measurement (moles/volume)Ordered By: Faustina Barr on 40-94-6263Ymbyhcsjl [Moles/Vol]3.3 mmol/L3.5-5.1FOhioHealth O'Bleness Hospitalerum or plasma sodium measurement (moles/volume)Ordered By: Faustina Barr on 79-97-1022Slokdl [Moles/Vol]140 mmol/N385-477XdhuzeqamMemorial Health System Marietta Memorial Hospitalerum or plasma total carbon dioxide measurement (moles/volume)Ordered By: Faustina Barr on 05-87-3637JK4 [Moles/Vol]33.3 mmol/L 22.0-30.0[facility] Hospitalerum or plasma urea nitrogen measurement (mass/volume)Ordered By: Faustina Barr on 86-92-4722Furm nitrogen [Mass/Vol]6 mg/dL9-23[facility] HospitalUrine culture routine Ordered By: Marvin Peter on 95-45-3499Rcrrpsfp identified Cx Nom (U)Escherichia coliAultman Orrville HospitalAlbumin [Mass/volume] in Serum or Plasma Ordered By: Marvin Peter on 34-27-8819Jnrpwfo [Mass/Vol]3.4 g/dL3.2-5.5FGood Samaritan HospitalAutomated erythrocytes count in urine sediment (number/area)Ordered By: Marvin Peter on 39-16-4786KJF Auto (Urine sed) [#/Area] Innumerable [HPF]0-4FGood Samaritan HospitalAutomated leukocytes count in urine sediment (number/area)Ordered By: Marvin Peter on 41-49-2652OLA Auto (Urine sed) [#/Area]50-100 [HPF]0-4FGood Samaritan HospitalAutomated urine hyaline casts count (number/volume)Ordered By: Marvin Peter on 11-04-2021 Hyaline casts Auto (U) [#/Vol]Rare [LPF]0-1FGood Samaritan Hospital Bilirubin Test strip Ql (U)Ordered By: Marvin Peter on 35-09-8699Gyolfpvua Ql (U) NegativeNegativeAultman Orrville HospitalCOVID CepheidOrdered By: Marvin Peter on 24-49-5277LHBA-CoV-2 (COVID-19) Ab IA QlNegativeNegativeAultman Orrville HospitalComment on above:This is a duplicate CepQuill Xpert Xpress CoV-2/Flu/RSV Plus RNA by RT-PCR result to be used for statistical tracking purpose only.SARS-CoV-2 (COVID-19) RNA PIPE+probe Ql (Unsp spec)[facility] HospitalCOD-19 SOFIAOrdered By: Marvin Peter on 11-04-2021 SARS-CoV+SARS-CoV-2 (COVID-19) Ag IA.rapid Ql (Resp)NegativeNegativeAultman Orrville HospitalComment on above:This is a duplicate Evita SARS Antigen ([facility]ONT) result to be used for statistical tracking purpose only.Casts typing in urine sediment by light microscopyOrdered By: Marvin ePter on 30-98-9534Kekrp LM Nom (Urine sed)None seen [LPF]None SeenAultman Orrville HospitalColor Auto (U)Ordered By: Marvin Peter on 40-42-5975Vrhbz (U)YellowYellowAultman Orrville HospitalGlobulin Calc (S) [Mass/Vol]Ordered By: Marvin Peter on 05-15-0006Ywxppoyx (S) [Mass/Vol]3.7 g/dLAultman Orrville Hospital Ketones Auto test strip (U) [Mass/Vol]Ordered By: Marvin Peter on 11-04-2021 Ketones (U) [Mass/Vol]1+NegativeAultman Orrville HospitalNitrite Test strip Ql (U)Ordered By: Marvin Peter on 63-42-9962Dttmire Ql (U)PositiveNegative [facility] HospitalNo Panel InformationOrdered By: Enrrique Mota on 61-88-535661427946-Gqsbfvj Vitamin D Total71.4 ng/tZ81-375FqvsphhulAultman Orrville HospitalComment on above:VITAMIN D STATUS 25(OH)VITAMIN D RANGE (ng/mL) Deficient <20 Insufficient 20 to <30 Sufficient 30 to 100 Reference: Earl MEDINA,Ken WILL, Yoandy PEDERSEN, et al. Evaluation,treatment, and prevention of vitamin D deficiency; an Endocrine Society clinical practice guideline. JCEM. 2010; 96(7):1911-30.VITAMIN D STATUS 25(OH)VITAMIN D RANGE (ng/mL) Deficient <20 Insufficient 20 to <32Kametrztzw56 to 100Reference: Ken Rene, Yoandy PEDERSEN, et al. Evaluation,treatment, and prevention of vitamin D deficiency; an Endocrine Society clinical practice guideline. JCEM. 2010; 96(7):1911-30.Protein Auto test strip (U) [Mass/Vol]Ordered By: Marvin Peter on 86-99-5394Icxfnpa (U) [Mass/Vol]30 mg/dLNegativeAultman Orrville HospitalProtein [Mass/volume] in Serum or PlasmaOrdered By: Marvin Peter on 93-40-1007Lzzlipv [Mass/Vol]7.1 g/dL6.1-7.9[facility] Hospitalerum or plasma alanine aminotransferase measurement without P-5'-P (enzymatic activiOrdered By: Marvin Peter on 75-88-9563GAG No additional P-5'-P [Catalytic activity/Vol]7 U/L10-60 [facility] Hospitalerum or plasma albumin/globulin mass ratio Ordered By: Marvin Peter on 01-42-4619Yokcmsx/Globulin [Mass ratio]0.9 {ratio} [facility] Hospitalerum or plasma alkaline phosphatase measurement (enzymatic activity/volume)Ordered By: Marvin Peter on 90-08-7123IFM [Catalytic activity/Vol]80 U/M98-96VonkdisobMemorial Health System Marietta Memorial Hospitalerum or plasma aspartate aminotransferase measurement (enzymatic activity/volume)Ordered By: Marvin Peter on 49-35-5217WTJ [Catalytic activity/Vol]16 U/H41-65PqbnslayrMemorial Health System Marietta Memorial Hospitalerum or plasma total bilirubin measurement (mass/volume) Ordered By: Marvin Peter on 27-60-9470Jijnotuho [Mass/Vol]1.2 mg/dL0.3-1.2 [facility] Hospitalpecific gravity Auto test strip (U) [Rel density]Ordered By: Marvin Peter on 94-83-2876Bgzlolgv gravity (U) [Rel density] 1.0291.001-1.030[facility] Hospitalquamous epithelial cells detection in urine sediment by light microscopyOrdered By: Marvin Peter on 97-88-4082Fhvtidpksq cells.squamous LM Ql (Urine sed)5-9 [HPF]0-2FGood Samaritan HospitalTS DL <= 0.005 mIU/L QnOrdered By: Enrrique Mota on 64-14-9145WOJ Qn2.09 m[IU]/L0.45-5.33[facility] HospitalUrine bacteria detection by automated methodOrdered By: Marvin Peter on 11-04-2021 Bacteria Auto Ql (U)4+None SeenAultman Orrville HospitalUrine clarity by refractometry automatedOrdered By: Marvin Peter on 53-94-3851Kreqfkf Refractometry automated (U)CloudyCleWilson Memorial HospitalUrine glucose measurement by automated test strip (mass/volume)Ordered By: Marvin Peter on 88-60-4118Wokibcj Auto test strip (U) [Mass/Vol]Normal mg/dLNoParkview Health Bryan HospitalUrine hemoglobin detection by automated test stripOrdered By: Marvin Peter on 07-92-5970Dtdobosucs Auto test strip Ql (U)3+Negative [facility] HospitalUrine leukocyte esterase detection by automated test stripOrdered By: Marvin Peter on 76-64-4339Xvoczjjwu esterase Auto test strip Ql (U)3+NegativeAultman Orrville HospitalUrobilinogen Auto test strip (U) [Mass/Vol]Ordered By: Marvin Peter on 37-90-0843Shhvaqlhzbiy (U) [Mass/Vol]Normal mg/dLNoParkview Health Bryan HospitalpH Auto test strip (U)Ordered By: Marvin Peter on 18-44-1185dF (U)5.5 [pH]5.0-9.0[facility] HospitalProthrombin Time INRon 86-15-1996SQS Coag (PPP) [Relative time]4.5 {INR}[facility] Other Prothrombin Time [employer] Other Urine culture routineOrdered By: Alton Valderrama on 13-87-2022Wrhfrmjd identified Cx Nom (U)Escherichia coliAultman Orrville HospitalProthrombin Time INRon 70-27-3171PJQ Coag (PPP) [Relative time]3.3 {INR}[facility] Other Prothrombin Time [employer] Other Automated erythrocytes count in urine sediment (number/area)Ordered By: Alton Valderrama on 86-70-1205WYA Auto (Urine sed) [#/Area] 10-19 [HPF]0-4FGood Samaritan HospitalAutomated leukocytes count in urine sediment (number/area)Ordered By: Alton Valderrama on 17-19-8976CSN Auto (Urine sed) [#/Area]20-49 [HPF]0-4FGood Samaritan HospitalBasophils Auto (Bld) [#/Vol]Ordered By: Alton Valderrama on 27-77-3870Uywqqdrsd (Bld) [#/Vol] 0.0 10*3/uL0.0-0.2FGood Samaritan HospitalBasophils/100 WBC Auto (Bld) Ordered By: Alton Valderrama on 20-77-9668Phoocbnvu/100 WBC (Bld)0.4 %.[facility] HospitalBilirubin Test strip Ql (U)Ordered By: Alton Valderrama on 89-98-5029Eesvkbepr Ql (U)NegativeNegativeAultman Orrville HospitalBlood hemoglobin measurement (mass/volume)Ordered By: Alton Valderrama on 09-28-2021 Hemoglobin (Bld) [Mass/Vol]12.3 g/dL11.8-15.4FGood Samaritan Hospital Blood leukocytes automated count (number/volume)Ordered By: Alton Valderrama on 92-54-0469VKT (Bld) [#/Vol]5.1 10*3/uL4.5-11.0[facility] Body fluid albumin measurement (mass/volume)Ordered By: Alton Valderrama on 91-01-4890Iqeijwr (Body fld) [Mass/Vol]3.3 g/dL3.2-5.5FGood Samaritan HospitalColor Auto (U)Ordered By: Alton Valderrama on 84-79-0666Ashnw (U)YellowYellow [facility] HospitalCreatinine and Glomerular filtration rate.predicted panel (S/P/Bld)Ordered By: Alton Valderrama on 09-27-4757Cubwcdthip [Mass/Vol]0.67 mg/dL0.44-1.03[facility] HospitalEosinophils Auto (Bld) [#/Vol]Ordered By: Alton Valderrama on 80-33-3869Ojsqhpkpfif (Bld) [#/Vol]0.0 10*3/uL0.0-0.45[facility] HospitalEosinophils/100 WBC Auto (Bld) Ordered By: Alton Valderrama on 75-30-1596Uonhlqqqqfk/100 WBC (Bld)0.4 %.[facility] HospitalErythrocyte distribution width Auto (RBC) [Ratio]Ordered By: Alton Valderrama on 86-34-5074Kagvkxeadeg distribution width (RBC) [Ratio]15.9 % 11.9-15.3FGood Samaritan HospitalEstimated glomerular filtration rate (GFR) non- AmericanOrdered By: Alton Valderrama on 28-09-1574JNR/1.73 sq M.predicted among non-blacks MDRD (S/P/Bld) [Vol rate/Area]> 60 mL/MinAultman Orrville HospitalGlobulin Calc (S) [Mass/Vol]Ordered By: Alton Valderrama on 43-09-6914Snnuaitu (S) [Mass/Vol]3.6 g/dLAultman Orrville Hospital Hematocrit Auto (Bld) [Volume fraction]Ordered By: Alton Valderrama on 09-28-2021 Hematocrit (Bld) [Volume fraction]37.5 %34.0-46.4FGood Samaritan HospitalKetones Auto test strip (U) [Mass/Vol]Ordered By: Alton Valderrama on 25-39-4807Cjxfoxz (U) [Mass/Vol]2+NegativeAultman Orrville Hospital Laboratory - Hematology and Cell countsOrdered By: Alton Valderrama on 09-28-2021 Nucleated RBC/100 WBC (Bld) [Ratio]0.0 %0-0.5FGood Samaritan Hospital Laboratory - UrinalysisOrdered By: Alton Valderrama on 42-40-8664Jblsfsn casts LM Ql (Urine sed)0-8 [LPF]0-8[facility] HospitalLymphocytes Auto (Bld) [#/Vol]Ordered By: Alton Valderrama on 87-46-7026Wbilvgmvwmk (Bld) [#/Vol]0.8 10*3/uL1.00-4.8[facility] HospitalLymphocytes/100 WBC Auto (Bld) Ordered By: Alton Valderrama on 66-94-0991Nwflcauaoxj/100 WBC (Bld)16.2 %.[facility] HospitalMCH Auto (RBC) [Entitic mass]Ordered By: Alton Valderrama on 29-77-9281EUO (RBC) [Entitic mass]29.5 pg24.7-34.3FGood Samaritan HospitalMCHC Auto (RBC) [Mass/Vol]Ordered By: Alton Valderrama on 95-89-9553VXRS (RBC) [Mass/Vol]32.7 g/dL32.0-35.0[facility] HospitalMCV Auto (RBC) [Entitic vol]Ordered By: Alton Valderrama on 44-34-0271EHJ (RBC) [Entitic vol]90.3 pL80-532ZklwynparAultman Orrville HospitalMonocytes Auto (Bld) [#/Vol]Ordered By: Alton Valderrama on 24-86-7872Cthsvokmq (Bld) [#/Vol]0.7 10*3/uL0.0-0.8[facility] HospitalMonocytes/100 WBC Auto (Bld)Ordered By: Alton Valderrama on 81-71-9218Kqzghhsjr/100 WBC (Bld)13.9 %.[facility] Neutrophils Auto (Bld) [#/Vol]Ordered By: Alton Valderrama on 60-04-4896Uylesxwwpxc (Bld) [#/Vol]3.5 10*3/uL1.8-7.7FGood Samaritan HospitalNeutrophils/100 WBC Auto (Bld)Ordered By: Alton Valderrama on 62-12-0004Jywisdwsygf/100 WBC (Bld) 69.1 %.[facility] HospitalNitrite Test strip Ql (U)Ordered By: Alton Valderrama on 86-30-0535Ipitnwf Ql (U)PositiveNegativeAultman Orrville HospitalNo Panel InformationOrdered By: Alton Valderrama on 09-28-2021 Estimated GFR ()> 60 mL/MinAultman Orrville Hospital Comment on above:GFR estimated reference range: According to KDOQI guidelines, <60 ml/min/1.73m2 is sufficient todiagnose a patient with chronic kidney disease.Pharmacy Creatinine Clearance (Chem66.85[facility] HospitalPlatelet mean volume Auto (Bld) [Entitic vol]Ordered By: Alton Valderrama on 82-46-7448Aepmkaiy mean volume (Bld) [Entitic vol]8.6 fL6.3-10.7FGood Samaritan HospitalPlatelets Auto (Bld) [#/Vol]Ordered By: Alton Valderrama on 48-29-9830Lkqtwqujs (Bld) [#/Vol]154 10*3/zR525-493GbgwqtjrgAultman Orrville HospitalProtein Auto test strip (U) [Mass/Vol]Ordered By: Alton Valderrama on 93-31-7399Ekyrvoa (U) [Mass/Vol]NegativeNegativeAultman Orrville HospitalProtein [Mass/volume] in Serum or PlasmaOrdered By: Alton Valderrama on 03-77-3887Sgjrzsg [Mass/Vol]6.9 g/dL6.1-7.9[facility] HospitalRBC Auto (Bld) [#/Vol]Ordered By: Alton Valderrama on 67-15-2706PXP (Bld) [#/Vol]4.16 10*6/uL3.60-5.00[facility] Hospitalerum or plasma alanine aminotransferase measurement without P-5'-P (enzymatic activiOrdered By: Altno Valderrama on 80-92-3608RFD No additional P-5'-P [Catalytic activity/Vol]7 U/L10-60 [facility] Hospitalerum or plasma albumin/globulin mass ratio Ordered By: Alton Valderrama on 36-17-9334Wjyoilw/Globulin [Mass ratio]0.9 {ratio} [facility] Hospitalerum or plasma alkaline phosphatase measurement (enzymatic activity/volume)Ordered By: Alton Valderrama on 44-92-1673IDE [Catalytic activity/Vol]51 U/V98-69TcmsawvtnMemorial Health System Marietta Memorial Hospitalerum or plasma aspartate aminotransferase measurement (enzymatic activity/volume)Ordered By: Alton Valderrama on 04-17-8972RXW [Catalytic activity/Vol]20 U/I73-57YzhrarxpmMemorial Health System Marietta Memorial Hospitalerum or plasma calcium measurement (mass/volume)Ordered By: Alton Valderrama on 61-99-3948Qayxfie [Mass/Vol]8.9 mg/dL8.2-10.2FOhioHealth O'Bleness Hospitalerum or plasma chloride measurement (moles/volume) Ordered By: Alton Valderrama on 72-30-4734Cobxnahp [Moles/Vol]95 mmol/L95-114 [facility] Hospitalerum or plasma glucose measurement (mass/volume)Ordered By: Alton Valderrama on 30-38-0431Hemqpwz [Mass/Vol]146 mg/dL 70-100[facility] HospitalComment on above:ADA recommended reference range Random Glucose Reference Range is dependent on time and content of last meal. Glucose of more than 200 mg/dL in a nonstressed, ambulatory subject supports the diagnosis of Diabetes Mellitus.Serum or plasma potassium measurement (moles/volume)Ordered By: Alton Valderrama on 04-03-9597Ymlyfkjau [Moles/Vol]3.5 mmol/L3.5-5.1FOhioHealth O'Bleness Hospitalerum or plasma sodium measurement (moles/volume)Ordered By: Alton Valderrama on 94-44-2722Hhvblp [Moles/Vol]136 mmol/H785-713EahfzoaxdMemorial Health System Marietta Memorial Hospitalerum or plasma total bilirubin measurement (mass/volume)Ordered By: Alton Valderrama on 58-72-6114Oyvkiipdx [Mass/Vol]1.0 mg/dL0.3-1.2FOhioHealth O'Bleness Hospitalerum or plasma total carbon dioxide measurement (moles/volume)Ordered By: Alton Valderrama on 09-28-2021 CO2 [Moles/Vol]29.5 mmol/L22.0-30.0[facility] Hospitalerum or plasma urea nitrogen measurement (mass/volume)Ordered By: Alton Valderrama on 76-01-4488Jpgl nitrogen [Mass/Vol]7 mg/dL9-23[facility] Specific gravity Auto test strip (U) [Rel density]Ordered By: Alton Valderrama on 61-63-9051Zmafbuoq gravity (U) [Rel density]1.0131.001-1.030[facility] Hospitalquamous epithelial cells detection in urine sediment by light microscopyOrdered By: Alton Valderrama on 02-13-6789Vvtkqfhukf cells.squamous LM Ql (Urine sed)None seen [HPF]0-2FGood Samaritan HospitalUrine bacteria detection by automated methodOrdered By: Alton Valderrama on 39-27-4450Jelibafm Auto Ql (U)3+None SeenAultman Orrville HospitalUrine clarity by refractometry automatedOrdered By: Alton Valderrama on 93-21-7912Nfzgmbi Refractometry automated (U)CloudyCleWilson Memorial HospitalUrine glucose measurement by automated test strip (mass/volume)Ordered By: Alton Valderrama on 51-15-0146Changag Auto test strip (U) [Mass/Vol]Normal mg/dLNoal [facility] HospitalUrine hemoglobin detection by automated test stripOrdered By: Alton Valderrama on 79-52-4857Hcprbkizew Auto test strip Ql (U)2+ NegativeAultman Orrville HospitalUrine leukocyte esterase detection by automated test stripOrdered By: Alton Valderrama on 15-84-6840Ijkehdpkb esterase Auto test strip Ql (U)2+NegativeAultman Orrville HospitalUrobilinogen Auto test strip (U) [Mass/Vol]Ordered By: Alton Valderrama on 84-74-6042Sookztunrtuw (U) [Mass/Vol]Normal mg/dLNormalAultman Orrville HospitalYeast detection in urine sediment by light microscopyOrdered By: Alton Valderrama on 36-92-0237Zjirm LM Ql (Urine sed)None seen [HPF]None SeenAultman Orrville HospitalpH Auto test strip (U)Ordered By: Alton Valderrama on 09-01-9520cM (U) 6.5 [pH]5.0-9.0[facility] HospitalProthrombin Time INRon 83-22-7369XRD Coag (PPP) [Relative time]2.1 {INR}[facility] Other Prothrombin Time INRRound [facility] Other Prothrombin Time INRon 82-23-9021LXV Coag (PPP) [Relative time]2.3 {INR}[facility] Other Prothrombin Time [facility] [employer] Other Complete Blood Count with Auto Diffon 07-16-2021 Basophils (Bld) [#/Vol]0.02 10*3/uLNormal0.00-0.20[facility] SpecialistComment on above:Performed By: #### LIPD, TSH, CMP, VITD, CBCAD #### [facility] [address] [place], [place] [id number]/100 WBC (Bld)0.3 %NormalNortToledo Hospital Medical SpecialistComment on above:Performed By: #### LIPD, TSH, CMP, VITD, CBCAD #### [facility] [address] [facility] [place], [place] [id number] (Bld) [#/Vol]0.17 10*3/uLNormal0.02-0.50[facility] SpecialistComment on above:Performed By: #### LIPD, TSH, CMP, VITD, CBCAD #### [facility] [address] [place], [place] [id number]/100 WBC (Bld)2.8 %NormalNortMercy Health Tiffin Hospital SpecialistComment on above:Performed By: #### LIPD, TSH, CMP, VITD, CBCAD #### [facility] [address] [place], [place] [id number] distribution width (RBC) [Ratio]15.0 %Normal 11.0-15.0[facility] SpecialistComment on above:Performed By: #### LIPD, TSH, CMP, VITD, CBCAD #### [facility] [address] [place], [place] [id number] (Bld) [Volume fraction]39.2 %Bzhagc14.0-47.0 [facility] SpecialistComment on above:Performed By: #### LIPD, TSH, CMP, VITD, CBCAD #### [facility] [address] [place], [place] [id number] (Bld) [Mass/Vol]12.0 g/fPCkdtly05.6-15.5[facility] SpecialistComment on above:Performed By: #### LIPD, TSH, CMP, VITD, CBCAD #### [facility] [address] [place], [place] [id number] (Bld) [#/Vol]1.7 10*3/uLNormal0.9-3.9[facility] SpecialistComment on above:Performed By: #### LIPD, TSH, CMP, VITD, CBCAD #### [facility] [address] [place], [place] [id number]/100 WBC (Bld)27.5 %NormalNoOhioHealth [facility] SpecialistComment on above:Performed By: #### LIPD, TSH, CMP, VITD, CBCAD #### [facility] [address] [place], [place] [id number] (RBC) [Entitic mass]29.4 nnEaltbj06.0-33.0[facility] SpecialistComment on above:Performed By: #### LIPD, TSH, CMP, VITD, CBCAD #### [facility] [address] [place], [place] [id number] (RBC) [Mass/Vol]30.6 g/dLLow32.0-36.0NoOhioHealth [facility] Hospital SpecialistComment on above:Performed By: #### LIPD, TSH, CMP, VITD, CBCAD #### [facility] [address] [place], [place] [id number] (RBC) [Entitic vol]96 oNOthkpi42-107Ogywxdsa [facility] SpecialistComment on above:Performed By: #### LIPD, TSH, CMP, VITD, CBCAD #### [facility] [address] [place], [place] [id number] (Bld) [#/Vol]0.6 10*3/uLNormal0.2-0.9NoOhioHealth [facility] Hospital SpecialistComment on above:Performed By: #### LIPD, TSH, CMP, VITD, CBCAD #### [facility] [address] [place], [place] [id number]/100 WBC (Bld)10.5 %NormalOhiohealth Berger Hospital SpecialistComment on above:Performed By: #### LIPD, TSH, CMP, VITD, CBCAD #### [facility] [address] [place], [place] [id number] (Bld) [#/Vol]3.6 10*3/uLNormal1.5-7.8NoOhioHealth [facility] Hospital SpecialistComment on above:Performed By: #### LIPD, TSH, CMP, VITD, CBCAD #### [facility] [address] [place], [place] [id number]/100 WBC (Bld)58.6 %NormalNoOhioHealth [facility] Hospital SpecialistComment on above:Performed By: #### LIPD, TSH, CMP, VITD, CBCAD #### [facility] [address] [place], [place] [id number] mean volume (Bld) [Entitic vol]11.40 fLNormal 7.50-12.50NoOhioHealth [facility] Hospital SpecialistComment on above:Performed By: #### LIPD, TSH, CMP, VITD, CBCAD #### [facility] [address] [place], [place] [id number] (Bld) [#/Vol]193 10*3/dDQevacw956-774Zitnuyyr [facility] SpecialistComment on above:Performed By: #### LIPD, TSH, CMP, VITD, CBCAD #### [facility] [address] [place], [place] [id number] (Bld) [#/Vol]4.08 10*6/uLNormal3.90-5.20NoOhioHealth [facility] Hospital SpecialistComment on above:Performed By: #### LIPD, TSH, CMP, VITD, CBCAD #### [facility] [address] [place], [place] [id number]-GP93.8 eMQzpv28.0-50.0NoOhioHealth [facility] Hospital Specialist Comment on above:Performed By: #### LIPD, TSH, CMP, VITD, CBCAD #### [facility] [address] [place], [place] [id number] (Bld) [#/Vol]6.1 10*3/uLNormal3.8-11.0NoOhioHealth [facility] Hospital SpecialistComment on above:Performed By: #### LIPD, TSH, CMP, VITD, CBCAD #### [facility] [address] [place], [place] [id number] Metabolic Panelon 37-86-3798Roqreoh [Mass/Vol] 4.1 g/dLNormal3.6-5.1[facility] SpecialistComment on above:Performed By: #### LIPD, TSH, CMP, VITD, CBCAD #### [facility] [address] [place], [place] [id number]/Globulin [Mass ratio]1.5 {ratio}Normal1.0-2.5NoOhioHealth [facility] Hospital SpecialistComment on above:Performed By: #### LIPD, TSH, CMP, VITD, CBCAD #### [facility] [address] [place], [place] [id number] [Catalytic activity/Vol]104 U/PKlbglv53-788Frqylzwb [facility] SpecialistComment on above:Performed By: #### LIPD, TSH, CMP, VITD, CBCAD #### [facility] [address] [place], [place] [id number] [Catalytic activity/Vol]7 U/LNormal6-33NortMercy Health [facility]iffin Hospital SpecialistComment on above:Result Comment: 02/11/2021 Female reference range changed.Performed By: #### LIPD, TSH, CMP, VITD, CBCAD #### [facility] [address] [place], [place] [id number] gap [Moles/Vol]18 mmol/RRyafja62-93Drsmicfz [facility] SpecialistComment on above:Result Comment: Effective 03/19/2019 reference range changed.Performed By: #### LIPD, TSH, CMP, VITD, CBCAD #### [facility] [address] [place], [place] [id number] [Catalytic activity/Vol]16 U/LNormal9-34NoOhioHealth [facility] Hospital SpecialistComment on above:Performed By: #### LIPD, TSH, CMP, VITD, CBCAD #### [facility] [address] [place], [place] [id number] [Mass/Vol]0.92 mg/dLNormal0.30-1.20NortMercy Health Tiffin Hospital SpecialistComment on above:Performed By: #### LIPD, TSH, CMP, VITD, CBCAD #### [facility] [address] [place], [place] [id number]/CREA29 RatioHigh6-22NoKaiser Hayward Neighborhood Coordinator Comment on above:Performed By: #### LIPD, TSH, CMP, VITD, CBCAD #### [facility] [address] [place], [place] [id number] [Mass/Vol]9.5 mg/dLNormal8.6-10.2[facility] SpecialistComment on above:Performed By: #### LIPD, TSH, CMP, VITD, CBCAD #### [facility] [address] [place], [place] [id number] [Moles/Vol]99 mmol/YLboadd74-104Kntyppgv [facility] SpecialistComment on above:Performed By: #### LIPD, TSH, CMP, VITD, CBCAD #### [facility] [address] [place], [place] [id number] [Moles/Vol]26 mmol/HSffgdh90-92Kpdvqlff [facility] SpecialistComment on above:Performed By: #### LIPD, TSH, CMP, VITD, CBCAD #### [facility] [address] [place], [place] [id number] [Mass/Vol]0.5 mg/dLLow0.6-1.4NoOhioHealth [facility] Hospital SpecialistComment on above:Performed By: #### LIPD, TSH, CMP, VITD, CBCAD #### [facility] [address] [place], [place] [id number] mL/min/1.69h4Ijhcgp>60NoOhioHealth [facility] Hospital SpecialistComment on above:Performed By: #### LIPD, TSH, CMP, VITD, CBCAD #### [facility] [address] [place], [place] [id number] mL/min/1.11c4Uyigzp>60NoOhioHealth [facility] Hospital SpecialistComment on above:Performed By: #### LIPD, TSH, CMP, VITD, CBCAD #### [facility] [address] [place], [place] [id number] (S) [Mass/Vol]2.7 g/dLNormal1.9-3.7NoOhioHealth [facility] Hospital SpecialistComment on above:Performed By: #### LIPD, TSH, CMP, VITD, CBCAD #### [facility] [address] [place], [place] [id number] [Mass/Vol]222 mg/mFSxva73-27Pjkdwjgq [facility] SpecialistComment on above:Result Comment: For FASTING Glucose --- ADA reference ranges: Normal 65-99 mg/dl Prediabetes 100-125 Diabetes >/= 126Performed By: #### LIPD, TSH, CMP, VITD, CBCAD #### [facility] [address] [place], [place] [id number] [Moles/Vol]4.7 mmol/LNormal3.5-5.5NoOhioHealth [facility] SpecialistComment on above:Performed By: #### LIPD, TSH, CMP, VITD, CBCAD #### [facility] [address] [place], [place] [id number] [Mass/Vol]6.8 g/dLNormal6.1-8.1[facility] SpecialistComment on above:Performed By: #### LIPD, TSH, CMP, VITD, CBCAD #### [facility] [address] [place], [place] [id number] [Moles/Vol]138 mmol/ZFfrnqk497-204Gpyairct [facility] SpecialistComment on above:Performed By: #### LIPD, TSH, CMP, VITD, CBCAD #### [facility] [address] [place], [place] [id number] nitrogen [Mass/Vol]15 mg/dLNormal7-25NoOhioHealth [facility] SpecialistComment on above:Performed By: #### LIPD, TSH, CMP, VITD, CBCAD #### [facility] [address] [place], [place] [id number] A1Con 64-12-0336HWU466.38NormalNoOhioHealth [facility] SpecialistComment on above:Performed By: #### A1C #### [facility] [address] [place], [place] [id number] (Bld) [Mass fraction]8.4 %High4.0-6.0NoOhioHealth [facility] Hospital SpecialistComment on above:Performed By: #### A1C #### [facility] [address] [place], [place] [id number] Panelon [id number] [Mass/Vol]172 mg/dLNormal 125-200NoOhioHealth [facility] Hospital SpecialistComment on above:Result Comment: Low risk < 200mg/dL Borderline risk 201-239 mg/dl High risk > or equal to 240Performed By: #### LIPD, TSH, CMP, VITD, CBCAD #### [facility] [address] [place], [place] [id number] in HDL [Mass/Vol]57 mg/dLNormal>40NortMercy Health [facility]iff[facility] SpecialistComment on above:Result Comment: High Cardiovascular Risk HDL <40 mg/dL Low Cardiovascular Risk HDL > or equal to 60 mg/dlPerformed By: #### LIPD, TSH, CMP, VITD, CBCAD #### [facility] [address] [place], [place] [id number] in LDL [Mass/Vol]88 mg/dLNormalNortMercy Health Tiffin Hospital SpecialistComment on above:Result Comment: LDL ATP III CLASSIFICATION LDL less than 100 mg/dl Optimal LDL 100-129 mg/dl Near or above optimal LDL 130-159 Borderline high LDL 160-189 High LDL greater than 189 mg/dl Very HighPerformed By: #### LIPD, TSH, CMP, VITD, CBCAD #### [facility] [address] [place], [place] [id number] in VLDL [Mass/Vol]27 mg/dLNormalNoOhioHealth [facility] Hospital SpecialistComment on above:Performed By: #### LIPD, TSH, CMP, VITD, CBCAD #### [facility] [address] [place], [place] [id number].total/Cholesterol in HDL [Mass ratio]3 {ratio} NormalNoOhioHealth Marion General Hospital SpecialistComment on above:Performed By: #### LIPD, TSH, CMP, VITD, CBCAD #### [facility] [address] [place], [place] [id number] [Mass/Vol]133 mg/hQVzqwae75-433Mamjcswe [facility] SpecialistComment on above:Result Comment: TRIG ATPIII CLASSIFICATIONS TRIG less than 150 mg/dl Normal TRIG 150-199 mg/dl Borderline High TRIG 200-500 mg/dl High TRIG greather than 500 mg/dl Very HighPerformed By: #### LIPD, TSH, CMP, VITD, CBCAD #### [facility] [address] [place], [place] [id number] 03-76-8397OKA2.480 uIU/mLNormal0.400-4.500NortMercy Health [facility]iffin Hospital SpecialistComment on above:Performed By: #### LIPD, TSH, CMP, VITD, CBCAD #### [facility] [address] [place], [place] [id number] B12on 41-54-4995Fkedzramn (Vitamin B12) [Mass/Vol] 1009 pg/aKGqrc470-808Zlcyidue [facility] SpecialistComment on above:Performed By: #### B12 #### [facility] [address] [place], [place] [id number] D 25-OHon 99-85-6584THQ D 25 OH56 ng/mlNormal>29 [facility] SpecialistComment on above:Result Comment: Vitamin D Status Deficiency <20 ng/mL Insufficiency 20-29 ng/mL Optimal 30-100 ng/mL Possible Toxicity >=150 ng/mLPerformed By: #### LIPD, TSH, CMP, VITD, CBCAD #### [facility] [address] [place], [place] [id number] Time INRon 19-31-9650DBW Coag (PPP) [Relative time]5.2 {INR}[facility] Other Prothrombin Time [facility] [employer] Other Prothrombin Time INRon 87-61-0536JLX Coag (PPP) [Relative time]3.9 {INR}[facility] Other Prothrombin Time [facility] [employer] Other Prothrombin Time INRon 54-42-3517ZSY Coag (PPP) [Relative time]3.2 {INR}[facility] Other Prothrombin Time [facility] Other Prothrombin Time INRon 81-22-8712XEO Coag (PPP) [Relative time]1.9 {INR}[facility] Other Prothrombin Time [facility] [employer] Other Prothrombin Time INRon 42-60-2254JVQ Coag (PPP) [Relative time]2.2 {INR}[facility] Other Prothrombin Time [facility]RN[facility] NetworkUnicotrip Other Prothrombin Time INRon 42-74-5824QBE Coag (PPP) [Relative time]2.4 {INR}[facility] Other Prothrombin Time INRChickRx Other Office Visit (Jpzcq-Efohqgux-[place])on 66-35-2263Noxdxe Visit (Kicva-Qdbvuszk-LW)History of Present IllnessALTON BARKER is here for [...] asleep and no acting out of dreams. Roslyn Sleepiness Scale is 14. She reports concern [...] MG Oral Tablet Vitals Vital Signs Recorded: 63Ahc1542 01:33PMHeart Yzbw39Wzzlkurb946, IHGHgdtffvra62, IMJXbabtz307 lb 1 ozBMI Draiuyycwu79.59BSA Calculated2.27 Physical ExamConstitutional: General appearance: no acute [...] disease; KISHOR = N; Verified Transmission to [facility] 575; Last Updated By: Joann Erwin; 10/26/2017 2:12:16 [...] and treatment options. 25 minutes was spent teyz-wg-dces in the visit. Patient Discussion/SummaryI am recommending starting Sinemet 0.5 tablets three times daily for 1 week with meals and then increase the first dose to 1 tablet. Follow up in 3 months. Signatures Electronically signed by : Tyree Perez MD; Nov 01 2017 8:36AM EST (Author)[facility] engageSimply Vital Signs Date TimeVital SignValuePerforming RldpsjyinWsblutfj78-15-5839 22:22-0500Body jisoakdidhu32.6 [degF]Honey Rabago DO Work Phone: [facility]12-22-2024 22:22-0500 Diastolic blood bismpphz36 mm[Hg]Honey Rabago DO Work Phone: [facility]12-22-2024 22:22-0500 Heart rate88 /minRobert Vaschak DO Work Phone: [facility]12-22-2024 22:22-0500 Respiratory rate16 /minRobert Vaschak DO Work Phone: [facility]12-22-2024 22:22-0500 SaO2% (BldA) [Mass fraction]98 %Honey Rabago DO Work Phone: [facility]12-22-2024 22:22-0500 Systolic blood rczxvteq212 mm[Hg]Honey Rabago DO Work Phone: [facility]12-22-2024 18:42-0500 Body .64 cmRoberjulius Mukulk DO Work Phone: 1(419)626-[address] [place], [place] 4626012-22-2024 18:42-0500 Body oyyiwy865.9 kgRobert Vaschak DO Work Phone: 8(304)234-[address] [place], [place] 4626012-15-2024 21:05-0500 Diastolic blood njkkyjby14 mm[Hg]Honey Vaschak DO Work Phone: 0(493)174-[address] [place], [place] 4626012-15-2024 21:05-0500 Heart rate82 /minRobert Vaschak DO Work Phone: 1(867)464-[address] [place], [place] 4626012-15-2024 21:05-0500 Respiratory rate16 /minRobert Vaschak DO Work Phone: 4(893)[address]12-15-2024 21:05-0500 SaO2% (BldA) [Mass fraction]100 %Honey Vaschak DO Work Phone: 0(534)089-[address] [place], [place] 4626012-15-2024 21:05-0500 Systolic blood mm[Hg]Honey Vaschak DO Work Phone: 9(236)7-[address] [place], [place] 4626012-15-2024 19:16-0500 Body xyiiar210.64 cmRobert Vaschak DO Work Phone: 2(901)547-[address] [place], [place] 4626012-15-2024 19:16-0500 Body kgRobert Vaschak DO Work Phone: 1(561)833-[address] [place], [place] 4626012-15-2024 19:15-0500 Body ynnkmvitjiu10.3 [degF]Honey Vaschak DO Work Phone: [phone])059-[address] [place], [place] 4626012-10-2024 13:08-0500 Body mass index (BMI) [Ratio]36.64 kg/i0Znvefvq Anthony FILM SOUND COORDINATOR Work Phone: [facility] ServicesOxpowakpsd93-58-6258 13:08-0500Body ixtuhv697.97 kgYuerong Anthony FILM SOUND COORDINATOR Work Phone: [facility] ServicesUpnokrmhhb71-26-6157 13:08-0500Diastolic blood iacoviqr26 mm[Hg]Mac Anthony FILM SOUND COORDINATOR Work Phone: [facility] ServicesAgbhgpjlbm19-73-4372 13:08-0500Heart rate94 /min Yuerong Anthony FILM SOUND COORDINATOR Work Phone: [facility] ServicesMnglrzipbt79-67-4815 13:08-0849IiN4% (BldA) [Mass fraction]99 %Yuerong Anthony FILM SOUND COORDINATOR Work Phone: [facility] ServicesDqzwfrbghp03-14-2137 13:08-0500Systolic blood kxxhhalr845 mm[Hg]Yuerong Anthony FILM SOUND COORDINATOR Work Phone: [facility] ServicesMsxuswwjfh55-38-2513 13:39-0400Body dofulf450.6 cmAngramirez Paez FILM SOUND COORDINATOR Work Phone: [place] [address]Kcbpwpednq27-61-5322 13:39-0400Body mass index (BMI) [Ratio]38.58 kg/k3WrimspLis Teixeirar FILM SOUND COORDINATOR Work Phone: [facility] ServicesJunbgjwvag36-21-5069 13:39-0400Body .41 kgLis Teixeirar FILM SOUND COORDINATOR Work Phone: [place] [address]Breripkalw31-42-9518 13:39-0400Diastolic blood ccpwzhae96 mm[Hg]Lis Teixeiradiana FILM SOUND COORDINATOR Work Phone: [place] [address]Ezglfxctti45-98-5029 13:39-0400Heart rate95 /min Lis Teixeirar FILM SOUND COORDINATOR Work Phone: [place] [address]Jwwzhsjsbq85-31-8325 13:39-7596QzY1% (BldA) [Mass fraction]98 %Lis Teixeirar FILM SOUND COORDINATOR Work Phone: [place] [address]Xuulfujevx82-59-7639 13:39-0400Systolic blood llqeojfn980 mm[Hg]Lis Teixeirar FILM SOUND COORDINATOR Work Phone: [place] [address]Uorojkvlkl45-98-7559 08:46-0400Diastolic blood toumoqsl54 mm[Hg]Yuerong Anthony FILM SOUND COORDINATOR Work Phone: [place] [address]Ehifudzijt82-23-5079 08:46-0400Systolic blood yonupmnz902 mm[Hg]Yuerong Anthony FILM SOUND COORDINATOR Work Phone: [facility] ServicesTpvulktogl27-37-9151 13:36-0400Body .6 cmMac Villasenor FILM SOUND COORDINATOR Work Phone: [place] [address]Jyliecirza78-36-0918 13:36-0400Body mass index (BMI) [Ratio]38.74 kg/m6CaadykoMac Villasenor FILM SOUND COORDINATOR Work Phone: [facility] ServicesWnvuncngxq68-84-0342 13:36-0400Body twyojh751.86 kgMac Villasenor FILM SOUND COORDINATOR Work Phone: [place] [address]Rjydgxmnde72-15-4346 13:36-0400Diastolic blood ioujvfzt37 mm[Hg]Mac Villasenor FILM SOUND COORDINATOR Work Phone: [facility] ServicesFvqgjqvaxt49-74-1186 13:36-0400Heart rate94 /min Mac Villasenor FILM SOUND COORDINATOR Work Phone: [address] [place], [place] [address]Buagnkqunf14-49-2750 13:36-6149EbL6% (BldA) [Mass fraction]99 %Mac Villasenor FILM SOUND COORDINATOR Work Phone: [place] [address]Lxrotikfnj18-40-9204 13:36-0400Systolic blood qtucwjwj386 mm[Hg]Mac Villasenor FILM SOUND COORDINATOR Work Phone: [place] [address]Epfkzjxjws48-35-6081 13:24-0400Body yvtuvq781.6 Adonay Perez EDUCATION REP.MOLD CARRIER Work Phone: [facility]08-13-2024 13:24-0400Body mass index (BMI) [Ratio]39.87 kg/n5LjkmyGloria Perez EDUCATION REP.MOLD CARRIER Work Phone: [facility]08-13-2024 13:24-0400Body .04 kgGloria Perez EDUCATION REP.MOLD CARRIER Work Phone: [facility] HospitalComment on above:Per pt. Did not get ugqkywb84-11-2604 13:24-0400Diastolic blood tkmygbvn05 mm[Hg]Gloria Perez EDUCATION REP.MOLD CARRIER Work Phone: [facility]08-13-2024 13:24-0400Heart rate74 /min Gloria Perez APRN.MOLD CARRIER Work Phone: [phone]08-13-2024 13:24-7532JeS1% (BldA) [Mass fraction]99 %Gloria Perez APRN.MOLD CARRIER Work Phone: [phone]08-13-2024 13:24-0400Systolic blood rkejlbaq048 mm[Hg]Gloria Perez APRN.MOLD CARRIER Work Phone: [facility]04-11-2024 14:53-0400Body zerfmg815.6 Adonay Perez EDUCATION REP.MOLD CARRIER Work Phone: [phone]04-11-2024 14:53-0400Body .6 kgGloria Perez EDUCATION REP.MOLD CARRIER Work Phone: [phone]04-11-2024 14:53-6489ZkH1% (BldA) [Mass fraction]99 %Gloria Perez EDUCATION REP.MOLD CARRIER Work Phone: [facility]11-09-2023 14:52-0500Body lnceka458.6 Adonay Perez EDUCATION REP.MOLD CARRIER Work Phone: [phone]11-09-2023 14:52-6574XqN2% (BldA) [Mass fraction]98 %Gloria Perez EDUCATION REP.MOLD CARRIER Work Phone: [phone]04-27-2023 14:54-0400Body crrxub238.6 Adonay Perez EDUCATION REP.MOLD CARRIER Work Phone: [facility]04-27-2023 14:54-0400Body .14 kgGloria Perez EDUCATION REP.MOLD CARRIER Work Phone: [facility]04-27-2023 14:54-7100HwM6% (BldA) [Mass fraction]98 %Gloria Perez EDUCATION REP.MOLD CARRIER Work Phone: [facility]03-09-2023 09:30-0500Diastolic blood mm[Hg]DO Honey Rabago Work Phone: [facility]03-09-2023 09:30-0500 Heart rate89 /Alex Rabago Work Phone: [phone]03-09-2023 09:30-0500 Systolic blood mm[Hg]DO Honey Mukulk Work Phone: 1([phone])[address]09-14-2022 16:00-0400 Body dilcvzhuaym84.4 [degF]DO Honey Hima Work Phone: 1(278)[address]09-14-2022 16:00-0400 Diastolic blood egxncvxv55 mm[Hg]DO Honey Mukulk Work Phone: 1(931)[address]09-14-2022 16:00-0400 Heart rate98 /Alex Rabago Work Phone: 1(713)966-[address] [place], [place] 4626009-14-2022 16:00-0400 Respiratory rate16 /minDKylah Rabaog Work Phone: 1(467)768-[address] [place], [place] 4626009-14-2022 16:00-0400 SaO2% (BldA) [Mass fraction]98 %DO Honey Hima Work Phone: [phone]09-14-2022 16:00-0400 Systolic blood zouuppyh10 mm[Hg]DO Honey Rabago Work Phone: [phone]09-13-2022 12:10-0400 Body .64 cmDO Honey Rabago Work Phone: [facility]09-11-2022 06:00-0400 Body onktfd79.8 kgDO Honey iHma Work Phone: 4(850)295-[address] [place], [place] 4626009-02-2022 21:44-0400 Body .1 [degF]DO Honey Danilochak Work Phone: [address] [place], [place] 2960909-02-2022 21:44-0400 Diastolic blood dfgtbiyb82 mm[Hg]DO Honey Danilochak Work Phone: [facility]09-02-2022 21:44-0400 Heart rate92 /minDO Honey Vaschak Work Phone: [facility]09-02-2022 21:44-0400 Respiratory rate18 /minDO Honey Vaschak Work Phone: [facility]09-02-2022 21:44-0400 SaO2% (BldA) [Mass fraction]98 %DO Honey Vaschak Work Phone: [address] [place], [place] 2960909-02-2022 21:44-0400 Systolic blood csoldily977 mm[Hg]DO Honey Vaschak Work Phone: 1(641)934-[address] [place], [place] 4626009-01-2022 16:00-0400 Body ixtumeopfda02.6 [degF]DO Honey Danilochak Work Phone: [address] [place], [place] 2960909-01-2022 16:00-0400 Diastolic blood duouzyas61 mm[Hg]DO Honey Vaschak Work Phone: [address] [place], [place] 2960909-01-2022 16:00-0400 Heart rate96 /minDO Honey Mukulk Work Phone: [facility]09-01-2022 16:00-0400 Respiratory rate16 /minDO Honey Danilochak Work Phone: [facility]09-01-2022 16:00-0400 SaO2% (BldA) [Mass fraction]98 %DO Honey Vaschak Work Phone: [facility]09-01-2022 16:00-0400 Systolic blood ciwljzfv57 mm[Hg]DO Honey Vaschak Work Phone: 1(717)697-[address] [place], [place] 4626009-01-2022 10:30-0400 Body .64 cmDO Honey Vaschak Work Phone: 1(034)745-[address] [place], [place] 4626008-31-2022 15:00-0400 Body afzfzc49.98 kgDO Honey Hima Work Phone: 1(256)227-[address] [place], [place] 4626008-31-2022 08:00-0400 Body thwflqyqbno24.9 [degF]DO Honey Danilochak Work Phone: 1(771)[address]08-31-2022 08:00-0400 Diastolic blood bilkjeyq61 mm[Hg]DO Honey Mukulk Work Phone: 1(991)[address]84 [address]08-31-2022 08:00-0400 Heart rate87 /minDO Honey Mukulk Work Phone: 1(542)[address]08-31-2022 08:00-0400 SaO2% (BldA) [Mass fraction]95 %DO Honey Mukulk Work Phone: 1(851)[address]08-31-2022 08:00-0400 Systolic blood inogvtxo902 mm[Hg]DO Honey Hima Work Phone: 1(608)442-[address] [place], [place] 4626008-31-2022 05:58-0400 Respiratory rate17 /minDO Honey Gilmank Work Phone: 1(853)626-[address] [place], [place] 4626008-31-2022 04:10-0400 Body byqoyt37.3 kgDO Honey Hima Work Phone: 1(771)72284 [address]08-25-2022 16:33-0400 Body shpawm103.64 cmDO Honey Hima Work Phone: 1(093)753-[address] [place], [place] 4626008-08-2022 23:25-0400 Diastolic blood ejkjyfzq36 mm[Hg]DO Honey Mukulk Work Phone: 1(939)858-[address] [place], [place] 4626008-08-2022 23:25-0400 Heart rate83 /minDO Honey Danilochak Work Phone: 1(926)101-[address] [place], [place] 4626008-08-2022 23:25-0400 Respiratory rate18 /minDO Honey Danilochak Work Phone: 1(590)924-[address] [place], [place] 4626008-08-2022 23:25-0400 SaO2% (BldA) [Mass fraction]100 %DO Honey Rabago Work Phone: [facility]08-08-2022 23:25-0400 Systolic blood gufvzltz060 mm[Hg]DO Honey Rabago Work Phone: [facility]08-08-2022 19:51-0400 Body xuzpnmrtwix69.6 [degF]DO Honey Rabago Work Phone: [facility]08-08-2022 19:48-0400 Body rjnzce591.64 cmDO Honey [employer] Work Phone: [facility]08-08-2022 19:48-0400 Body .6 kgDO Honey iGlmanWhistle[employer] Work Phone: [address] [place], [place] 2960907-21-2022 11:58-0400 Body .6 Adonay Perez APRN.MOLD CARRIER Work Phone: [facility]07-21-2022 11:58-0400Body xyfbzn689.06 kgGloria Perez APRN.MOLD CARRIER Work Phone: [facility]07-21-2022 11:58-8649MhF1% (BldA) [Mass fraction]98 %Gloria Perez APRN.MOLD CARRIER Work Phone: [facility]07-18-2022 02:06-0400Heart rate86 /min DO Honey Rabago Work Phone: [facility]07-18-2022 00:01-0400 Body .64 cmDO Honey [employer] Work Phone: [facility]07-18-2022 00:01-0400 Body mass index (BMI) [Ratio]35.5 kg/m2DO Honey [employer] Work Phone: [facility]07-18-2022 00:01-0400 Body .79 kgDO Honey [employer] Work Phone: 1(594)241-[address] [place], [place] 4626007-17-2022 23:57-0400 Body pujkeyblsqx50.6 [degF]DO Honey Rabago Work Phone: 3(817)549-[address] [place], [place] 4626007-17-2022 23:57-0400 Diastolic blood bkhihtye31 mm[Hg]DO Honey Rabago Work Phone: 1(965)781-[address] [place], [place] 4626007-17-2022 23:57-0400 Respiratory rate16 /minDO Honey Rabago Work Phone: 8(319)[address]07-17-2022 23:57-0400 SaO2% (BldA) [Mass fraction]97 %DO Honey Rabago Work Phone: 2(353)566-[address] [place], [place] 4626007-17-2022 23:57-0400 Systolic blood mm[Hg]DO Honey Rabago Work Phone: 5(606)1-[address] [place], [place] 4626005-20-2021 16:20-0400 Body jooiau791.64 cmRobert Hima Work Phone: 9(447)437-[address] [place], [place] 3886605-20-2021 16:20-0400 Body mass index (BMI) [Ratio]41.6 kg/q3Zlposz Hima Work Phone: 9(480)245-[address] [place], [place] 3886605-20-2021 16:20-0400 Body .02 kgRobert Hima Work Phone: 3(425)534-[address] [place], [place] 3886605-20-2021 16:19-0400 Body zxuzwwrknaj49.1 [degF]Honey Rabago Work Phone: 9(555)450-[address] [place], [place] 3886605-20-2021 16:19-0400 Diastolic blood huxomzvl24 mm[Hg]Honey Mukulk Work Phone: 8(528)746-[address] [place], [place] 3886605-20-2021 16:19-0400 Heart rate90 /minRobert Vaslloydk Work Phone: 7(735)269-[address] [place], [place] 3886605-20-2021 16:19-0400 Respiratory rate18 /minHoney Rabago Work Phone: [facility] Uka39-49-8035 16:19-0400 SaO2% (BldA) [Mass fraction]98 %Honey Rabago Work Phone: [facility] Tdm60-45-0124 16:19-0400 Systolic blood tkyakgwh540 mm[Hg]Honey Rabago Work Phone: [facility] Encounters Encounter DateEncounter TypeCare ProviderFacilityStart: 01-23-2025 End: 06-15-0908Uauouhtdk Result EncounterVanadna Orourke MD Work Phone: NOQW External Department UnsolicitedStart: 01-23-2025 End: 19-73-0607Upjusokjp Result EncounterVandana Orourke MD Work Phone: NOR[facility] External Department UnsolicitedStart: 01-22-2025 End: 76-66-5901Ddbkyveen Result EncounterVandana Orourke MD Work Phone: NOYR External Department UnsolicitedStart: 01-22-2025 End: 98-92-1799Jqbipmzhr Result EncounterVandana Orourke MD Work Phone: NOKW External Department UnsolicitedStart: 10-06-2024 End: 92-92-3486Amroqbdyu Result EncounterVandana Orourke MD Work Phone: NOBW External Department UnsolicitedStart: 10-06-2024 End: 56-80-9752Rjukbrqqk Result EncounterVandana Orourke MD Work Phone: [facility] External Department UnsolicitedStart: 09-25-2024 End: 12-57-7627Xsslpx Ha Aponte MD Work Phone: [facility] DERMStart: 09-25-2024 End: 96-47-1882Jhsljramando Aponte MD Work Phone: [facility]WS DERMStart: 09-25-2024 End: 89-69-1210rsglmetgucPWXPD A PETITTINot AvailableStart: 09-25-2024 End: 32-47-9273Idswrf outpatient visit 25 minutesSixto Aponte MD Work Phone: [facility] DERMComment on above:Other seborrheic dermatitis (Primary Dx); Lentigines; Seborrheic keratosis; Capillary angiomaStart: 05-17-2024 End: 81-68-7732Ddpcft Kavya Hutton DPM Work Phone: [facility] PODIATRYStart: 05-17-2024 End: 64-34-3137Wdxeuc Kavya Hutton DPM Work Phone: [facility] PODIATRYStart: 05-17-2024 End: 45-26-1110zgwqwxzijqQDRTWCORX H SMITHNot AvailableStart: 05-17-2024 End: 84-89-8438Snsapq outpatient visit 10 minutesCavin Hutton DPM Work Phone: [facility]oms [facility] PODIATRYComment on above: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); Neuropathy; Hammer toes of both feet; Onychomycosis; Pain in both feet; Tinea pedis of both feetStart: 05-03-2024 End: 26-76-4404Cdrjmihtf Result EncounterGeneric External Data ProviderNOMS External Department UnsolicitedStart: 05-03-2024 End: 02-93-3737Imecqtgqk Result EncounterGeneric External Data ProviderNOMS External Department UnsolicitedStart: 05-02-2024 End: 48-50-7903Inbcmzuwo Result EncounterGeneric External Data ProviderNOMS External Department UnsolicitedStart: 05-02-2024 End: 24-54-9597Bpldcbgpq Result EncounterGeneric External Data ProviderNOMS External Department UnsolicitedStart: 03-16-2024 End: 83-14-0830kzjuywxenjPidavg Vaschak DO Work Phone: [facility] Work Phone: Start: 03-16-2024 End: 55-19-6193Odivnbea ReferredRobert Mukulk DO Work Phone: [facility]-LAB Path Spec Jesse HospStart: 03-06-2024 End: 68-44-7693dbypycwmixNcgzc Walter APRN.MOLD CARRIER Work Phone: NeurologyComment on above:Depression with anxiety (Primary Dx); Parkinson's disease without dyskinesia, with fluctuating manifestations (HCC) Start: 03-06-2024 End: 78-08-7289Teknwoxbfwow consultation with Henri Perez APRN.MOLD CARRIER Work Phone: NeurologyStart: 03-05-2024 End: 66-09-6445Oachtwxcm encounterCourtalvin Wise OT Work Phone: noms CI PTComment on above:re: OT Eval set-upStart: 03-04-2024 End: 16-26-9840Wegsdsalb department patient visitRobert Mukulk DO Work Phone: [facility]-Emergency Room Work Phone: Start: 02-26-2024 End: 08-85-9565Orieqmklc department patient visitRobert Mukulk DO Work Phone: [facility]-Emergency Room Work Phone: Start: 02-24-2024 End: 30-15-1473mdgvzgsxzdLDIUNRM K SHAFFERFacility:[place] GeneralStart: 02-24-2024 End: 42-90-2605Rqjiwegm evaluation and management serviceSraissa Torres APRN.MOLD CARRIER Work Phone: NeurologyComment on above:NO SHOW (Primary Dx)Start: 02-22-2024 End: 02-15-5805Yjqsqhxzn encounterCourtalvin Wise OT Work Phone: [facility] CI PTComment on above:OT Initial EvalStart: 02-21-2024 End: 99-52-0309M-mail encounter from Khloe Torres APRN.MOLD CARRIER Work Phone: NeurologyStart: 02-21-2024 End: 49-51-4615Puzgwh DelMatthiasgi Villasenor FILM SOUND COORDINATOR Work Phone: [facility] External Department UnsolicitedStart: 02-21-2024 End: 10-28-3087Xzdlkf outpatient visit 25 minutesGerbereduardo Anthony FILM SOUND COORDINATOR Work Phone: [facility] IMComment on above:Morbid obesity (CMS/HCC) (Primary Dx); Type 2 diabetes mellitus with other specified complication, without long-term current use of insulin (CMS/HCC); Parkinson's disease without dyskinesia or fluctuating manifestations (CMS/HCC); Frequent falls; Acquired hypothyroidism (CMS/HCC); Type 2 diabetes mellitus with hyperglycemia (CMS/HCC); Immunodeficiency due to conditions classified elsewhere (CMS/HCC)Start: 02-21-2024 End: 43-87-2053hgkxpivhuhSjxurlmJaxon Torres APRN.MOLD CARRIER Work Phone: NeurologyComment on above:How to Prepare for Your Upcoming Virtual VisitStart: 02-16-2024 End: 58-36-1841Wxrefr flowsTavo Hutton DPM Work Phone: [facility] PODIATRYStart: 02-16-2024 End: 85-66-9768Ktqatt flowsheetUrbano Hutton DPM Work Phone: [facility] PODIATRYStart: 02-16-2024 End: 11-50-3277Vocxxjf encounter procedureCavin Hutton DPM Work Phone: noms [facility] PODIATRYComment on above:Onychomycosis (Primary Dx); Pain in both feet; Type II diabetes mellitus with neurological manifestations (CMS/HCC); NeuropathyStart: 02-16-2024 End: 97-52-7248rrgvapkegxXBOQMRXYY H SMITHNot AvailableStart: 12-05-2023 End: 05-29-6751Vkcudn Gen Paez FILM SOUND COORDINATOR Work Phone: noms [facility] ROUTEStart: 12-05-2023 End: 97-88-9502Alhggh flowsjuanLis Castrophilly FILM SOUND COORDINATOR Work Phone: noms [facility] ROUTEStart: 12-05-2023 End: 34-89-7334tkixfgnvkpEYRCLG GILLPHILLYNot AvailableStart: 12-05-2023 End: 10-26-2009Szglqz outpatient visit 25 minutesLis Castrophilly FILM SOUND COORDINATOR Work Phone: noms [facility] HOSPITAL ROUTEComment on above:GERMANIA (obstructive sleep apnea) (Primary Dx); Inadequate sleep hygiene; Hypersomnia; Snoring; Anxiety; Depression, unspecified depression type ([facility]); Memory lossStart: 11-23-2023 End: 87-03-9021Rvtqzi outpatient visit 25 minutesGerbereduardo Anthony FILM SOUND COORDINATOR Work Phone: noms [facility] IMComment on above:Vaginal yeast infection (Primary Dx); Atrophic vaginitis; Diabetic peripheral neuropathy associated with type 2 diabetes mellitus ([facility])Start: 11-23-2023 End: 20-29-0572mdglmsbeewKECKNZC BAYERNot AvailableStart: 11-17-2023 End: 89-51-7290Qhinaa outpatient visit 15 minutesUrbano Hutton DPM Work Phone: noms SWS PODIATRYComment on above:Onychomycosis (Primary Dx); Pain in both feet; Type II diabetes mellitus with neurological manifestations ([facility]); Neuropathy; Hammer toes of both feetStart: 11-17-2023 End: 08-45-4190yqldgjthgdWNVGQWTTA H SMITHNot AvailableStart: 11-17-2023 End: 91-51-2286Rdqksr flowsTavo Hutton DPM Work Phone: noms SWS PODIATRYStart: 11-17-2023 End: 67-59-7085Icttcr flowsTavo Hutton DPM Work Phone: noms SWS PODIATRYStart: 11-16-2023 End: 39-99-5182MqjnkfFmotfxe Hill MANOMS [facility] IMComment on above:Vaginal yeast infectionStart: 11-15-2023 End: 35-48-8983Vduvem outpatient visit 25 minutesMac Villasenor FILM SOUND COORDINATOR Work Phone: [facility] IMComment on above:Parkinson's disease without dyskinesia or fluctuating manifestations (CMS/HCC) (Primary Dx); Type 2 diabetes mellitus with other specified complication, unspecified whether [place] [facility] [place] insulin use (CMS/HCC); GERMANIA (obstructive sleep apnea); Pulmonary fibrosis (CMS/HCC); Vaginal yeast infection; Vitamin D deficiency; Vitamin B12 deficiency; Need for vaccination with 20-polyvalent pneumococcal conjugate vaccineStart: 11-15-2023 End: 06-73-0781ijybruxtjzPMVIIIC BAYERNot AvailableStart: 10-30-2023 End: 46-20-6310Iwuxjvndg Result EncounterGeneric External Data ProviderNOMS External Department UnsolicitedStart: 10-30-2023 End: 69-13-4718Hqiqgefbs Result EncounterGeneric External Data ProviderNOMS External Department UnsolicitedStart: 10-25-2023 End: 14-58-7470bodgyacetsWQVLL WALTERFacility:OhioHealthtart: 10-25-2023 End: 63-61-2020Fiwocve encounter Joshua Perez APRN.CNP Work Phone: NeurologyComment on above:Injury of head, initial encounter (Primary Dx); Parkinson's disease without dyskinesia, with fluctuating manifestations (HCC); Depression with anxietyStart: 10-20-2023 End: 66-11-6221Lmpqivaxt Result EncounterGeneric External Data ProviderNOMS External Department UnsolicitedStart: 10-20-2023 End: 12-09-6377Uolnmvovr Result EncounterGeneric External Data ProviderNOMS External Department UnsolicitedStart: 10-06-2023 End: 55-95-3358tgtoyzqrwfUEGCU A PETITTINot AvailableStart: 06-23-2023 End: 50-34-6844lfnmulildaFVZDV WALTERFacility:OhioHealthtart: 06-23-2023 End: 93-13-7599Mydknog encounter procedureGloria Perez APRN.[facility] Work Phone: NeurologyComment on above:Depression with anxiety (Primary Dx); Parkinson's disease without dyskinesia, with fluctuating manifestations (HCC); SialorrheaStart: 04-27-2023 End: 64-28-0349Sthdtxggv Result EncounterGeneric External Data ProviderNOMS External Department UnsolicitedStart: 04-27-2023 End: 51-82-4528Jslrmuxmc Result EncounterGeneric External Data ProviderNOMS External Department UnsolicitedStart: 04-13-2023 End: 70-02-3857Obhbdttvx Result EncounterGeneric External Data ProviderNOMS External Department UnsolicitedStart: 04-13-2023 End: 80-87-0951Jmuiqnulm Result EncounterGeneric External Data ProviderNOMS External Department UnsolicitedStart: 44-32-0338Iiicwlsph encounterGloria Perez APRN.[facility] Work Phone: NeurologyComment on above:Medication ProblemStart: 01-20-2023 End: 87-46-6813Bffjxyt encounter procedureGloria Perez APRN.[facility] Work Phone: NeurologyComment on above:Parkinson's disease without dyskinesia, with fluctuating manifestations (Primary Dx); Depression with anxietyStart: 07-14-2022 End: 57-44-3578vonoinrryaJV ROBERT VASCHAKFacility:P3Zfady: 07-12-2022 End: 10-26-5093ocfybyjdvpZJ ROBERT VASCHAKFacility:O0Tvpjj: 07-08-2022 End: 76-40-6055Jlaamnu encounter Joshua Perez APRN.[facility] Work Phone: NeurologyComment on above:Parkinson's disease (HCC) (Primary Dx); Depression with anxietyStart: 06-01-2022 End: 07-96-0451iipgulllkeDYSteve Solanocility:E5Ujinp: 80-54-4290tiuqorlpay Gloria Perez APRN.[facility] Work Phone: NeurologyComment on above:UPDATE: ALTON BARKER : [birth year]-2[birth year]42Start: 05-20-2022 End: 11-16-6407hbyctfbxtuSO Honey Carrascokoki Work Phone: [facility] Work Phone: Start: 05-20-2022 End: 05-57-7364Uokvavnsiu Recurring Honey Gimlanaura Work Phone: [facility]-Infusion Therapy - O/P Work Phone: Start: 99-47-3145BcaiotYmffs Walter APRN.MOLD CARRIER Work Phone: NeurologyComment on above:Refill RequestStart: 19-48-3501Npwwwcnqp encounterGloria Perez APRN.MOLD CARRIER Work Phone: NeurologyComment on above:Patient UpdateStart: 02-02-2022 End: 11-52-3261xeiruhapvxMZ ROBERT VASCHAKFacility:N2Kaatw: 01-08-2022 End: 80-64-2954crubpkgepyCnbi Fitt Other [facility] Other Start: 29-91-3457Skwgiyuwa encounterDawcindy [facility] ClinicStart: 12-30-2021 End: 04-53-4207Svmnzkd encounter procedureDO Méndez Danilokoki Work Phone: [facility]-Lab [facility] HealthStart: 12-29-2021 End: 27-27-0850wipfelhebfBV ROBERT VASCHAKFacility:J3Rybuu: 12-21-2021 End: 03-51-8399dhayrzwadwSB ROBERT VASCHAKFacility:J7Lpobe: 12-15-2021(Repeat ACH)Anu [facility] ClinicStart: 12-15-2021 End: 64-28-5049cmomaymyucLgan Fitt Other [employer] Other Start: 12-14-2021 End: 12-48-0464uijaspcnfeLZ HONEY RABAGOFacility:J8Hiafm: 12-01-2021(Repeat ACH)Anu [facility] Coordinated Care ClinicStart: 12-01-2021 End: 39-35-6652zpvedvbczzPojq Fitt Other [facility] [employer] Other Start: 11-30-2021 End: 56-97-5063pnltcwqxjuMP ROBERT VASCHAKFacility:I8Vkmaz: 11-11-2021 End: 51-99-8838Achyvhotcg and management of inpatientDO Honey Rabago Work Phone: [phone] RehabStart: 11-05-2021 End: 26-28-7603okofwgnjoySqmu Braun Other Nort [employer] Other start: 74-55-7419Pktecgy encounter procedureDaFisher-Titus Medical CenterStart: 96-50-6950Xvuwkmzkr encounterGloria Perez APRN.M[employer] CARRIER Work Phone: NeurologyComment on above:Appointment; Patient Update (Called to schedule follow up. Patient in hospital.)Start: 11-04-2021 End: 31-07-3772Bakuqukupx and management of inpatientDO Honey Rabago Work Phone: [phone] [address] RehabStart: 54-09-3789imffxciwjxJuqli Walter APRN.MOLD CARRIER Work Phone: NeurologyComment on above:ALTON BARKER UPDATE MESSAGE #3Start: 52-66-1106Eqwyqgzpma RecurringDO Honey Rabago Work Phone: [facility] for Coordinated CareStart: 10-22-2021([facility] R A/c) [facility] Repeat A/CDcorina [facility] Coordinated Care ClinicStart: 10-22-2021 End: 93-50-3033kotfymhpxeRgev Fitt Other [employer] Other Start: 10-19-2021 End: 84-51-1417Pdssycjgy department patient visitDO Honey Rabago Work Phone: [facility]-Emer[facility] RoomStart: 10-01-2021 End: 38-73-1187Srlhfwe encounter Joshua Perez APRN.CNP Work Phone: NeurologyComment on above:Recurrent episodes of unresponsiveness (Primary Dx); Parkinson's disease (HCC); Depression with anxiety; Fatigue, unspecified type; Excessive daytime sleepinessStart: 09-29-2021([facility] R A/c) [facility] Repeat A/CDawn [facility] ClinicStart: 09-29-2021 End: 25-68-9808xppzerjifhIpyj Fitt Other [facility] Other Start: 09-27-2021 End: 29-25-4444Digcrqfas department patient visitDO Honey Rabago Work Phone: [facility]-Emergency RoomStart: 09-23-2021 End: 28-94-4103nafoetixmcPmog Fitt Other [employer] Other Start: 97-86-3482Yzictccwx encounterDawn Fit[facility] Care ClinicStart: 08-26-2021([facility] R A/c) [facility] Repeat A/CDawn Fitt [facility] Care ClinicStart: 08-26-2021 End: 69-02-7423qjoftsbuzhVcmb Fitt Other [employer] Other Start: 08-05-2021([facility] R A/c) [facility] Repeat A/CDawn Fitt [facility] Care ClinicStart: 08-05-2021 End: 43-31-2210fdbahnzvgiFnmz Fitt Other [employer] Other Start: 07-20-2021([facility] R A/c) [facility] Repeat A/CDawn [facility]itt [facility]: 07-20-2021 End: 21-25-2731cwpluqtrwxCdna Fitt Other [employer] Other Start: 06-10-2021([facility] R A/c) [facility] Repeat A/CDawn [facility]itt [facility]: 06-10-2021 End: 30-59-1622yzefmwaraeOhzv Fitt Other [facility] Other Start: 05-26-2021([facility] R A/c) [facility] Repeat A/CDawn Fitt [facility]: 05-26-2021 End: 32-61-5494ciruttviydWtmz Fitt Other [facility] Other Start: 05-19-2021 End: 40-56-4324prvibfentlJxhr Fitt Other [employer] Other Start: 24-56-7416Srtkuzgao encounterDawn FitProMed[facility] ClinicStart: 04-21-2021 End: 82-42-5721fakbqkiliqBfdw Fitt Other [employer] Other Start: 07-17-2042Bjzrwrvjx encounterDawn FitProMed[facility] ClinicStart: 04-15-2021 End: 16-45-7567wtekamkauuRmdg Fitt Other [employer] Other Start: 04-05-1158Taqfeonps encounterDawn FittFirelands Coordinated Care ClinicStart: 03-25-2021([facility] R A/c) [facility] Repeat A/CDawn Fitt [facility] ClinicStart: 03-25-2021 End: 80-27-3582uoxoqwxdcrUwjo Fitt Other [facility] Other Start: 02-25-2021([facility] R A/c) [facility] Repeat A/CDawn Fitt [facility] ClinicStart: 02-25-2021 End: 16-73-2553olmazvehcwQdlb Fitt Other [facility] Other Start: 01-28-2021([facility] R A/c) [facility] Repeat A/CDawn Fitt [facility] ClinicStart: 01-28-2021 End: 45-36-6098pzzgxhifdaCtwk Fitt Other [facility] Other Start: 01-21-2021 End: 08-97-0373pyrggsxjetHxux Fitt Other [employer] Other Start: 77-51-6035Izzpqhjsb encounterDawn [facility] ClinicStart: 01-07-2021 End: 15-98-2180viywhkhadeZvob Fitt Other [facility] Other Start: 91-33-9213Mymolmyah encounterDawn [facility] ClinicStart: 12-10-2020([facility] R A/c) [facility] Repeat A/CDawn Fitt [facility] ClinicStart: 07-31-2020 End: 74-35-5140Qbrjbnrqq department patient visitRobchris Rabago Work Phone: [phone]-Cpyxsjnyc RoomStart: 11-84-6831Grkuxmissy Recurring Honey Rabago Work Phone: [phone]-[facility] for Coordinated Care Procedures DateProcedureProcedure DetailPerforming ClinicianStart: 22-59-8991CQP UA (CLEAN/CATCH) BLEND TECHNICIAN/MICRO IF IND.Vandana Orourke MD Work Phone: Start: 09-66-7257OUN CBC WITH AUTO DIFFRdillon Orourke MD Work Phone: Start: 50-14-0874BMD PROTIME/INRRugkari Orourke MD Work Phone: Start: 39-57-2677ZB ChestGeneric External Data ProviderStart: 42-23-4979GL PULMONARY FUNCTION TESTGeneric External Data ProviderStart: 08-86-6199TL cervical spine without contrastRobert Vaschak DO Work Phone: Start: 14-39-6040YF of head without contrastRobert Vaslloydk DO Work Phone: Start: 18-16-9302PQ of lumbar spine without contrast Honey Rabago DO Work Phone: Start: 30-34-0163Daxrn cultureRobert Vaslloydk DO Work Phone: Start: 97-83-1588YJ of lumbar spine without contrast Honey Rabago DO Work Phone: Start: 20-96-9165Fesfdyzc blood count with white cell differential, automatedMac Anthony FILM SOUND COORDINATOR Work Phone: Start: 02-21-2024 End: 26-30-7492Yfbnzczzmatgq metabolic panelYuerong Anthony FILM SOUND COORDINATOR Work Phone: Start: 23-46-4958Howjv panelYuerong Anthony FILM SOUND COORDINATOR Work Phone: Start: 60-45-8981WRPLSFRE STATUS REPORTYuerong Anthony FILM SOUND COORDINATOR Work Phone: Start: 36-03-8116Pmtmnpypqf glycosylated i7fIwogmd J Vaslloydk DO Work Phone: Start: 79-85-9096Lwdkezcs identified in Urine by CultureGeneric External Data ProviderStart: 95-01-7602ZO ChestGeneric External Data ProviderStart: 62-34-2561DB PULMONARY FUNCTION TESTGeneric External Data ProviderStart: 16-25-1694VMD HEMOGLOBINGeneric External Data ProviderStart: 03-29-1533IM CHEST WO CONGeneric External Data ProviderStart: 81-76-9110NK lumbar spine wo conDO Honey Rabago Work Phone: Start: 77-96-8588UC of head without contrastDO Honey Rabago Work Phone: Start: 61-59-6341Nprhkwos tomography of thoracic spine without contrastDO Honey Rabago Work Phone: Start: 35-92-8120YP cervical spine without contrastDO Honey Rabago Work Phone: Start: 84-52-1107UH of lumbar spine without contrastDO Honey Rabago Work Phone: Start: 64-33-4381UK of head without contrastDO Honey Rabago Work Phone: Start: 87-35-1209U-ray of lumbar spine, two or three viewsDO Honey Rabago Work Phone: Start: 38-81-7654Awniv depression screening assessment Gloria Perez APRN.CNP Work Phone: Start: 83-50-1159Flbxi chest X-rayDO Honey Rabago Work Phone: Start: 47-32-7403Lfwbdfudscv of cervical spineRobchris Rabago Work Phone: [phone]-VrG-2, Influenza & RSV (PCR)DO Honey Rabago Work Phone: Urine Mary KayO Honey [employer] Work Phone: Urine cultureDO Honey [employer] Work Phone: Urine cultureDO Honey [employer] Work Phone: Plan of Treatment DateCare ActivityDetailAuthorStart: 68-10-8194Gkswdesd ScreeningDiabetes ScreeningSelect Medical TriHealth Rehabilitation Hospitaltart: 78-52-2323Myqhcuth ScreeningDiabetes Screening [facility] Hospitaltart: 88-04-2934Vgfnvzzj ScreeningDiabetes ScreeningSelect Medical TriHealth Rehabilitation Hospitaltart: 09-25-2025 End: 97-24-5448Xxfsewo encounter luzdghtbq13/15/2026 1:05 PM EDT Office Visit [facility] [address] [place] [phone] Sixto Aponte MD [address] [place] [address] NOMS [place] DermatologyStart: 11-12-2024 Influenza vaccinationInfluenza Vaccine (#1)NOMS HealthcareStart: 10-09-2024 End: 85-69-3513Unoivxn encounter hntobcbmy97/29/2025 1:30 PM EDT Office Visit [facility] [address] [place] [address] Sixto Aponte MD [address] [place] [address] NOMS [facility]MP[facility] DERMStart: 08-23-2024 End: 40-89-7877Qszyvhp encounter nfmfqykos64/12/2025 1:00 PM EDT Procedure Visit [facility] [address] [place] [phone] Urbano Hutton DPM [address] [place] [address] NOMS [facility] PODIATRYStart: 05-17-2025Medicare Annual Wellness (AWV)Medicare Annual Wellness (AWV)NOMS HealthcareStart: 05-29-2024 End: 18-76-0854Qdzttkw encounter ezkygcjtr62/18/2025 1:00 PM EDT Office Visit NOMS [facility] IM [address] [place] [address] Honey Rabago, [address] [place] [address] NOMHasmukh [facility] IMStart: 25-63-7000Nnflmbqxjs A1c measurement Diabetes: Hemoglobin Q7IUJFL HealthcareStart: 05-17-2024 End: 83-73-2703Runqanm encounter gysaibtna04/06/2025 1:00 PM EST Procedure Visit NOMS [facility] PODIATRY [address] [place] [address] Urbano Hutton DPM [address] [place] [address] NOMS [facility] PODIATRYStart: 04-25-2024 End: 06-02-9582Ywduqpa encounter hmhvykiwu68/12/2025 2:00 PM EST Office Visit NOMHasmukh [facility] [address] [place] [phone] Lis Paez NP [address] [place] [address] NOMHasmukh [facility] ROUTEStart: 04-11-2024 End: 44-00-4902Fjqvilu encounter izffgaiad63/29/2025 1:00 PM EST Office Visit Neurology [facility] [address] [place], [place] [phone] Nupur Main, PAJose [address] [place], [place] [phone] r/s from 02/24/24 apptNeurology [facility] Centeromment on above:r/s from 02/24/24 apptStart: 03-16-2024 Urine cultureMemorial Health [facility] Hospitaltart: 32-70-8413Wmplgiyd identified in Urine by CultureUrine [facility] Start: 03-05-2024 End: 87-84-3010Tatxjan encounter bxokzugyk75/23/2024 1:20 PM EST Office Visit NOMS [address] [place] [address] Lis Paez, YEN [address] [place], [place] NOMS [facility] ROUTEStart: 02-28-2024 End: 37-64-8988dqhojxkfat69/17/2024 1:30 PM EST Evaluation NOMS CI PT [address] [place] [phone] Betina Wise, OT [address] [facility] [address] [place] [address] NOMS CI PTStart: 02-28-2024 End: 30-52-6518Ylgnmpl encounter /17/2024 1:30 PM EST Office Visit Neurology [address] [phone] Gloria Perez, EDUCATION REP.MOLD CARRIER [address] [address] Parkinson's disease without dyskinesia, with fluctuating manifestations (HCC) [G20.A2]NeurologyComment on above:Parkinson's disease without dyskinesia, with fluctuating manifestations (HCC) [G20.A2]Start: 02-24-2024 End: 99-60-0232ggfvjkmzjx32/13/2024 3:00 PM EST [facility] Neurology [address] [place] [address] Audrey Torres, EDUCATION REP.MOLD CARRIER [address] [place], [place] [phone] *Patient agreeable to virtual visit per phone call (02/16/24)*NeurologyComment on above: *Patient agreeable to virtual visit per phone call (02/16/24)*Start: 02-21-2024 End: 11-67-3179Zpcqxlc encounter procedureNOMS SWS IMStart: 02-16-2024 End: 08-22-7817Raivbxj encounter procedureNOMS SWS PODIATRYComment on above: ArrivedStart: 02-14-2024 End: 541192-ogjslituzztsja D3 [Mass/volume] in Serum or PlasmaVitamin D 25 hydroxy Total Lab Routine Vitamin D deficiency Expected: 02/14/2024 (Approximate), Expires: 11/14/2024[facility] HealthcareComment on above:Expected: 02/14/2024 (Approximate), Expires: 11/14/2024Start: 02-14-2024 End: 62-38-5730UGE W Auto Differential panel - BloodCBC and differential Lab Routine Type 2 diabetes mellitus with other specified complication, 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 ([facility]) Expected: 02/14/2024 (Approximate), Expires: 11/14/2024[facility] HealthcareComment on above:Expected: 02/14/2024 (Approximate), Expires: 11/14/2024Start: 02-14-2024 End: 79-71-7576Ozlfyzixv (Vitamin B12) [Mass/volume] in Serum or PlasmaVitamin B12 Lab Routine Vitamin B12 deficiency Expected: 02/14/2024 (Approximate), Expires: 11/14/2024[facility] HealthcareComment on above:Expected: 02/14/2024 (Approximate), Expires: 11/14/2024Start: 02-14-2024 End: 93-67-5669Fginnomrhivrb metabolic 2000 panel - Serum or PlasmaComprehensive metabolic panel Lab Routine Type 2 diabetes mellitus with other specified complication, unspecified whether [place] [facility] [place] insulin use ([facility]) Expected: 02/14/2024 (Approximate), Expires: 05/14/2024[facility] Healthcare Work Phone: Comment on above:Expected: 02/14/2024 (Approximate), Expires: 05/14/2024Start: 21-50-5233Ypkwlauhib A1c measurementDiabetes: Hemoglobin U7AYLAW HealthcareStart: 02-14-2024 End: 04-77-3311Idgdcflohm a1c with eagHemoglobin a1c with eag Lab Routine Type 2 diabetes mellitus with other specified complication, 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 ([facility]) Expected: 02/14/2024 (Approximate), Expires: 025NOCT HealthcareComment on above:Expected: 02/14/2024 (Approximate), Expires: 11/14/2024Start: 02-14-2024 End: 42-63-3996Sdbzk 1996 panel - Serum or PlasmaLipid panel Lab Routine Type 2 diabetes mellitus with other specified complication, unspecified whether [place] [facility] insulin use ([facility]) Expected: 02/14/2024 (Approximate), Expires: 11/14/2024[facility]CT HealthcareComment on above:Expected: 02/14/2024 (Approximate), Expires: 11/14/2024Start: 54-56-9585Snlixcpd screeningDiabetes: Retinopathy ScreeningNOCT HealthcareStart: 20-07-9411Sjvjb screening for proteinDiabetes: Urine Protein ScreeningGARFIELD MEMORIAL [facility] HealthcareStart: 12-05-2023 End: 98-47-5165Ilajtwf encounter /23/2024 1:20 PM EDT Office Visit NOM[facility] [address] [facility] [address] [place] [address] Lis Paez, FILM SOUND COORDINATOR [address] [place], [place] NOMS [facility] ROUTEStart: 46-35-6583JENOPTMJ SCREENDIABETES SCREENRingold ClinicStart: 58-80-6826Jxeaklvo ScreeningDiabetes ScreeningSelect Medical TriHealth Rehabilitation Hospitaltart: 11-17-2023 End: 11-54-3402Qtlgzwd encounter procedureNOSENECA HOSPITAL PODIATRYComment on above: ArrivedStart: 11-15-2023 End: 45-04-0926Encecju encounter cbcwiogpg08/03/2024 1:30 PM EDT Office Visit NOMS [facility] IM [address] [place] [address] Honey Rabago DO [address] [place] [address] NOMS [facility] IMStart: 33-28-8517Guawo-19 Vaccine ( season)Covid-19 Vaccine ( season)[facility] Hospitaltart: 11-13-2023 Influenza vaccinationInfluenza Vaccine (#1)[facility]tart: 10-29-2023 Hemoglobin A1c measurementDiabetes: Hemoglobin U7QZXRI HealthcareStart: 10-25-2023 End: 98-01-1556MA Head WO contrastCT BRAIN WO IVCON Radiology STAT Injury of head, initial encounter Expected: 10/25/2023, Expires: 11/23/2024[facility] Work Phone: Comment on above:Expected: 10/25/2023, Expires: 11/23/2024Start: 10-06-2023 End: 60-68-6151Voikdyw encounter vihgrhzpw24/25/2024 10:50 AM EDT Office Visit NOMS [facility] DERM [address] [place] [phone] Sixto Aponte MD [address] [place] [address] NOMS [facility] DERMStart: 05-17-2024Medicare Annual Wellness (AWV)Medicare Annual Wellness (AWV)NOM HealthcareStart: 07-27-2023 End: 85-23-8365Okqbigo encounter pihfcgrev17/15/2024 2:00 PM EDT Office Visit NOMS [facility] IM [address] [place] [address] Honey Rabago DO [address] [place] [address] NOMS [facility] IMStart: 68-93-4676Wyuzxitjlk A1c measurement Diabetes: Hemoglobin S9XBQVD HealthcareStart: 05-04-2023 End: 91-20-9930Kbzbrwg encounter bwhawzfqa37/21/2024 1:00 PM EST Procedure Visit NOMS [facility] PODIATRY [address] [place] [address] Urbano Hutton DPM [address] [place] [address] NOMS [facility] PODIATRYStart: 63-31-5098Dagovhz Directive DiscussionAdvance Directive DiscussionSelect Medical TriHealth Rehabilitation Hospitaltart: 60-01-6111Niukv-19 Vaccine ( season)Covid-19 Vaccine ( season)[facility] Hospitaltart: 04-44-5968Amgne depression screening assessmentDEPRESSION SCREENING [facility] Hospitaltart: 10-37-8236VMYDVCV DIRECTIVE DISCUSSIONADVANCE DIRECTIVE DISCUSSIONSelect Medical TriHealth Rehabilitation Hospitaltart: 82-22-3790GKGHWJKMMJ ASSESSMENTDEPRESSION ASSESSMENTSelect Medical TriHealth Rehabilitation Hospitaltart: 60-96-9649BayqppydqOhiohealth [facility]ady [facility]tr Work Phone: Start: 34-94-3468DxvcrhwalOhiohealth Grady Memorial Hospital [facility]tr Work Phone: Start: 76-00-0543Xcnsrssdb [facility] Work Phone: Start: 29-96-9846Fjztufqhd [facility] Work Phone: Start: 63-75-4970RcimjihifOhiohealth Grady Memorial Hospital Ctr Work Phone: Start: 04-19-5514SyhqpfttgOhiohealth Grady Memorial Hospital Ctr Work Phone: Start: 41-70-0439QcvbsilvfOhiohealth [facility] Work Phone: Start: 46-76-2753CuakhuevsOhiohealth Grady Memorial Hospital [facility] Work Phone: Start: 74-48-3016YunjkwrobOhiohealth Grady Memorial [facility] Work Phone: Start: 54-74-6969VeqdzxaedOhiohealth Grady Memorial Hospital [facility] Work Phone: Start: 20-19-9364VntsahynyOhiohealth Grady [facility] Hospital [facility] Work Phone: Start: 80-31-1626RfcvgrptdOhiohealth Grady [facility] Work Phone: Start: 96-78-7969WlbjqojwfOhiohealth [facility] Work Phone: Start: 11-43-8021[facility] Work Phone: Start: 53-14-4085Dnwjaifef [facility] Work Phone: Start: 70-78-7431Xedjjkfhj [facility] Work Phone: Start: 07-95-3099Wxmxblihs [facility] Work Phone: Start: 11-24-2021 End: 80-88-9539GeyarduucMemorial Health System Marietta Memorial Hospitaltart: 90-24-4252YpggvcxjwMemorial Health System Marietta Memorial Hospitaltart: 60-89-8419Rkkumxtqn [facility] Work Phone: Start: 42-49-9693Djyxponzk [facility] Work Phone: Start: 67-40-8790Drhggmqmy [facility] Work Phone: Start: 82-92-5138Exrpblupd [facility] Work Phone: Start: 94-24-6881Inmpikwai [facility] Work Phone: Start: 05-91-1047Dusxicbpa [facility] Work Phone: Start: 01-84-0461Ktfrqgjws [facility] Work Phone: Start: 51-12-4603Kboykxgms [facility] Work Phone: Start: 33-36-9348Yganxjnfz [facility] Work Phone: Start: 17-91-8732Pevirpvpd [facility] Work Phone: Start: 15-95-5282Hdexbpenw vaccinationINFLUENZA (#1) [facility]: 44-41-6434Pqwqjpfpjoopcd of prophylactic treatment [facility]: 41-17-7004Txcobfvb admissionMemorial Health System Marietta Memorial Hospitaltart: 69-24-6978Dnzhsldd to clinical allergistMemorial Health System Marietta Memorial Hospitaltart: 33-19-7239IrhdtxcjdKeenan Private Hospital Work Phone: Start: 35-03-2143Nbercvuzzm and management of inpatientBack painKeenan Private Hospital-[facility] [place] RehabStart: 11-09-2021 [facility] Hospitaltart: 41-05-6417UV lumbar spine wo conMR lumbar spine wo [facility]art: 11-05-2021 Administration of prophylactic treatmentMemorial Health System Marietta Memorial Hospitaltart: 98-44-0944Vkdzaazfigmnlb of prophylactic treatmentMemorial Health System [facility] Memorial Hospitaltart: 27-09-2941CknzwvpcewkzQbajmthgqMemorial Health System Marietta Memorial Hospitaltart: 38-91-0315Shefbcgj to psychiatristMemorial Health System [facility] Memorial Hospitaltart: 85-18-2075Zjevhlok admissionMemorial Health System Marietta Memorial Hospitaltart: 11-04-2021 End: 49-75-9116Iejsvxevwb and management of inpatientBack [facility] [place] RehabStart: 00-60-0786AP of head without contrastCT head/brain [facility]: 70-69-0799Ipfrjirz tomography of thoracic spine without contrastCT thoracic spine [facility]art: 85-20-2632EB cervical spine without contrastCT cervical spine [facility]art: 75-40-0148FA of lumbar spine without contrastCT lumbar spine [facility]art: 54-24-3475Wbrlmmobrt RecurringRegistered RecurringKeenan Private Hospital-Center for Coordinated CareStart: 00-23-4335Mbsns screening for proteinDiabetes: Urine Protein ScreeningSaint Francis Hospital & Health ServicesStart: 05-20-2021 COVID-19 VACCINE (4 - Booster for Moderna series)COVID-19 VACCINE (4 - Booster for Moderna series)[facility]tart: 41-00-0283OYBVU-19 VACCINE (4 - Booster for Moderna series)COVID-19 VACCINE (4 - Booster for Moderna series) [facility]tart: 48-59-7503SPHCTUX DIRECTIVE DISCUSSIONADVANCE DIRECTIVE DISCUSSIONSelect Medical [facility]Health Rehabilitation Hospitaltart: 21-68-2517DEIOBAUGOG ASSESSMENTDEPRESSION ASSESSMENTSelect Medical TriHealth Rehabilitation Hospitaltart: 12-15-0708HOGOG-19 Vaccine (3 - Moderna risk series)COVID-19 Vaccine (3 - Moderna risk series)[facility] ServicesStart: 08-34-5410TQP Vaccine (1 - 1-dose 75+ series)RSV Vaccine (1 - 1-dose 75+ series) [facility]tart: 27-18-5652Qtyss microalbumin profileDTaP,Tdap,Td Vaccine (1 - Tdap)[facility]tart: 54-06-9497LLMA DENSITYBONE DENSITYSelect Medical [facility]Health Rehabilitation Hospitaltart: 87-87-7129Tufn Density ScreeningBone Density ScreeningSelect Medical TriHealth Rehabilitation Hospitaltart: 94-08-8764VXZKLCNPHUDZ: 65+ (1 - PCV)PNEUMOCOCCAL: 65+ (1 - PCV) [facility]: 27-18-3069XYM Vaccine (1 - 1-dose 60+ series)RSV Vaccine (1 - 1-dose 60+ series)[facility]tart: 73-55-7475KHPKQMQM VACCINE (1 of 2)SHINGRIX VACCINE (1 of 2)[facility] Hospitaltart: 96-11-4508Yytnf microalbumin profileDTAP,TDAP,TD (1 - Tdap)[facility] HospitalBacteria identified in Urine by CultureURINE CULTURE, ROUTINE Lab Routine 10/30/2023 11:29 PM [facility] End: 04-16-0326KWHA EEG ROUTINEEPIL EEG ROUTINE NEUROLOGY Routine Recurrent episodes of unresponsiveness 1 Occurrences starting 10/04/2021 until 10/04/2022 [facility] Work Phone: Comment on above:1 Occurrences starting 10/04/2021 until 10/04/2022atient EducationKeenan Private Hospital Work Phone: [facility] referralBaptist [facility] Immunizations Immunization DateImmunizationNotesCare PgewpclvQhcbbnkf01-17-4937Lbldxfwfpycv Conjugate PCV 20Yuerong Anthony FILM SOUND COORDINATOR Work Phone: [facility] ServicesJopkgckghy35-64-6950Mtemeriq trivalent influenza vaccine, adjuvanted, preservative freeYuerong Anthony FILM SOUND COORDINATOR Work Phone: [facility] ServicesRefsyspswo60-40-9452ldpbihtwa virus vaccine, unspecified formulationUrbano Hutton DPM Work Phone: [facility] ServicesQgxvzribec16-35-5241Mjlabxobbkgm Conjugate PCV 20 Mac Anthony FILM SOUND COORDINATOR Work Phone: [facility] ServicesJdtorswffs67-52-2801Secqvqpzv, Seasonal, Quadrivalent, AdjuvantedGeneric Universal Health ServicesJqypdipnph29-65-8106ubdrlgnpf virus vaccine, unspecified formulationGeneric [facility]11-14-2022 influenza, high dose seasonal, preservative-freeGeneric [facility] 22-37-0709rtyqzwovu, high dose seasonal, preservative-freeGeneric [facility] ServicesDpmasbuxeh20-41-9790Dhmumkio trivalent influenza vaccine, adjuvanted, preservative freeGeneric [facility] ServicesGqwvkztlaj37-70-7156fjqecsmqk, high dose seasonal, preservative-freeDawn Fitt Other [place] [employer] Other 11111661-12-4634mqeudrttz virus vaccine, unspecified formulationRobert Hima DO Work Phone: [facility]11-30-2018influenza, high dose seasonal, preservative-freeGeneric [facility]02-20-2018 influenza, injectable, quadrivalent, preservative freeGeneric [facility] ServicesJclzflepqj44-51-2933xqlpemtxj, high dose seasonal, preservative-freeGeneric [facility] ServicesEizbmcpzbz75-29-4301mgzsxbeyu, seasonal, injectable, preservative freeGeneric [facility] ServicesXvwsgevoll12-03-3116eyeommyqbvem conjugate vaccine, 13 valentGeneric [facility] ServicesGzoxnohdly43-45-7737mhgmvhdhv, high dose seasonal, preservative-freeGeneric [facility] ServicesWfzjgndzry07-69-5152tguxmvnkfubf polysaccharide vaccine, 23 valentGeneric [facility]11-01-2012 seasonal influenza, intradermal, preservative freeGeneric [facility] ServicesWseosyisdd41-92-2395zbhefvsq influenza, intradermal, preservative freeGeneric [facility] ServicesYzzdbgxnot54-61-3085rojcrkn and diphtheria toxoids, adsorbed, preservative free, for adult use (2 Lf of tetanus toxoid and 2 Lf of diphtheria toxoid)Generic ProviderNOMercy Hospital South, formerly St. Anthony's Medical CenterYlnigdpyqd91-64-3052xbzbqfqe influenza, intradermal, preservative freeGeneric ProviderSaint Francis Hospital & Health Services Payers DatePayer CategoryPayerPolicy [id number]-xfp [id number] 2024Medicare (Managed Care)[facility] MEDICARE ADVANTAGE [id number] Health [id number] [id number] 21-24-4404TbnlsmcZJDQQG BLUE CROSS AND BLUE SHIELD [facility] [id number] 2021- [phone] [address] [place] [address] [id number] 1.2.840.311560.1.13.159.2.7.3.150576.02810-32-0115Hurdmim 1.2.840.683558.1.13.159.2.7.3.772156.315 [id number] jgf1z3c5-3674-05h0-z99e-0408m478bm8683-22-3274Bnaesuw5700156 2.16.840.1.067023.3.579.2.51694-47-7031Gnelgml7265876 2.16.840.1.033334.3.579.2.48117-51-1189Gmpofqk9644238 2.16.840.1.493319.3.579.2.29711-29-9098Poqdhzd9175302 2.16.840.1.019145.3.579.2.24772-89-9948Uaurqkq7045574 2.16.840.1.533690.3.579.2.25553-15-3315Erpjyro9308715 2.16840.1.766404.3.579.2.41100-06-8735Plsopsi8874171 2.840.1.357738.3.579.2.66497-56-9941Nhkfdgi6880836 2.16840.1.954502.3.579.2.08373-38-1351Puarnzo74668889 2.16.840.1.759831.3.579.2.971948-36-0051Rptphrx3684792 2.16840.1.135397.3.579.2.313188-80-5859Mpsfqxu7791987 2.16840.1.307350.3.579.2.063483-81-0192Tszvged7792994 2.16840.1.888568.3.579.2.344242-81-0650Jpycykf9473148 2.16.840.1.047367.3.579.2.662817-65-6072Bmzsrwz5459598 2.16840.1.055647.3.579.2.793167-42-2090Mdomsew3388483 2..840.1.762304.3.579.2.994181-74-5295Cboezys1026104 2..840.1.870856.3.579.2.752041-30-0867Avzwfng0155323 2.16.840.1.517790.3.579.2.1259MedicareMedicare Rehab-IP Part [id number] Health [id number]982706 2.16.840.1.019597.3.579.2.832Uhpysdg94186986 2.840.1.109292.3.579.2.531 Umgfwqs52309161 2.0.1.302123.3.579.2.531 Social History DateTypeDetailFacilityStart: 07-31-2020 End: 10-13-8282Roudfng smoking status NHISEx-smoker (finding)[facility] Start: 50-47-0733Jye Assigned At BirthFeAultman Hospitaltart: 01-20-2023 End: 30-61-4258Cub Assigned At BirthSelect [facility] Rehabilitation Hospitaltart: 03-02-2018 End: 37-76-1922Mbjqpri use and exposureSmokeless tobacco non-userSelect Medical TriHealth Rehabilitation Hospitaltart: 09-21-2021 End: 72-69-1864Dafhakob to SARS-CoV-2 (event)Not sureMemorial Health System Marietta Memorial HospitalHistory of tobacco useCurrent smokerSelect Medical TriHealth Rehabilitation Hospitaltart: 11-12-2021 End: 07-57-8555Ebhqkhr smoking status NHISNever smoked tobacco (finding) [facility] Hospitaltart: 01-20-2023 End: 42-64-4606Aogtpmo of Social functionSelect Medical TriHealth Rehabilitation Hospitaltart: 54-54-0920Hobss Depression Screening Xdsyhkuypl2Onmfuzizt ClinicStart: 77-04-0007Nqfiec identity Identifies as female gender (finding)[facility]tart: 68-73-4705Yxkyje orientationHeterosexual (finding)[facility] Hospitaltart: 59-54-2354Fndqutw intake Current drinker of alcohol (finding)[facility] HealthcareHow often to you have a drink containing alcohol?NeverGARFIELD [facility]ORIAL [facility] HealthcareStart: 12-79-8967Cnzlgoa Comment caffeine: coffee 1-2 cups a dayGARFIELD MEMORIAL HOSPITAL HealthcareStart: 99-36-6938Tii Assigned At BirthNot on fileGARFIELD MEMORIAL HOSPITAL HealthcareStart: 11-23-2023 End: 27-52-8217Tkxirxlnp beverage intakeLifetime non-drinker (finding)[facility] HealthcareStart: 95-89-8061VvbLubsmo (finding)[facility] Medical Equipment Procedure CodeEquipment CodeEquipment Original TextEquipment IdentifierDatesUSE DIRECTED BEFORE MEALS AND BEDTIMEStart: 08-28-2018 End: 58-11-9127Leglgrw on above:USE DIRECTED BEFORE MEALS AND BEDTIME Goals DatePatient GoalDesired Activity/State Functional Status SwttPpxlxzqwhkFfpoqyMsujokzd50-35-3308Fcajabc Health Questionnaire 2 item (PHQ- 2) [Reported][facility] ServicesCnlzxnbrom37-44-2660Ergzezvbia statusPatient is Progressing Toward BaselineKeenan Private Hospital Work Phone: 1(101) 236-389508288252-35-0495Ranvgyaopl statusPatient is Progressing Toward BaselineKeenan Private Hospital Work Phone: 1(499) 972-584608871676-04-7374Wwvcohvsbe statusPatient at Baseline [facility] Work Phone: Mental Status FdkoCrryrowrxeMbjdmqSzxgdaud68-60-7005Nkvkftxqh functionCognitive Status Patient at BaselineKeenan Private Hospital Work Phone: 1(400) 122-522908-889483-70-7002Gdryijorm functionCognitive Status Patient Not at BaselineKeenan Private Hospital Work Phone: 1(837) 719-632208-327706-38-9751Ckfaipcjn functionCognitive Status Patient at BaselineKeenan Private Hospital Work Phone: Clinical Notes 12-10-2020 to 07-15-2025 Note Date & NbvrXcnjLyqenyic58-24-2554 History of Present illness Narrative* Sixto Aponte [...] wheelchair Accompanied by family member, resides at [facility] A complete skin exam was offered, pt [...] Visit: 1 year documented in this encounterSaint Francis Hospital & Health ServicesFqscsxjnsj98-71-5814 History of Present illness Narrative* Urbano Hutton DPM - 05/17/2024 1:00 PM EST Images [...] infection andinstructed on daily use. We discussed sgzd-jbu-jssnnci versus prescription and topical medications.Patient would like [...] new shoes today. documented in this encounterSaint Francis Hospital & Health ServicesLsjytfvvnw50-72-2903 History of Present illness Narrative* Gloria Perez APRN.ELDON - 03/06/2024 1:30 PM EST [facility] - FOLLOW UP EVALUATION Primary Neurologist: Tyree Perez MD Primary BETHEL: ELDON Chicas DO [address] [place] [address] Dear Honey Rabago DO: I had the pleasure of seeing Ms. Barker for follow-up today. As you know she is a 83 year old right-handed female with a history of Parkinson's disease since 2013. She is seen with her son. We had a visit using: AdWhirl Subjective Previous Plan-10/25/2023 Visit: Parkinson's disease: Continue [...] Mirtazapine 7.5mg 1 Level of service : 43660 ( 30-39 min). Time spent 34 min on the day of service, which included preparing to see the patient, znzm-as-puew patient care, completing clinical documentation, obtaining and/or reviewing separately obtained history, performing a medically appropriate examination, and counseling and educating the patient/family/caregiver. Gloria Perez APRN.ELDON documented in this encounterMemorial Health System [facility] Hospital12-24-2024 NoteHNO ID: [id number] Author: GLORIA PEREZ APRN.CNP Service: ? Author Type: Nurse Practitioner Type: Progress Notes Filed: 03/11/2024 10:02 Note Text: [facility] - FOLLOW UP EVALUATION Primary Neurologist: Tyree Perez MD Primary BETHEL: ELDON Chicas DO [address] [place] [address] Dear Honey Rabago DO: I had the pleasure of seeing Ms. Barker for follow-up today. As you know she is a 83 year old right-handed female with a history of Parkinson's disease since 2013. She is seen with her son. We had a visit using: AdWhirl Subjective Previous Plan-10/25/2023 Visit: Parkinson's disease: Continue [...] Rash Phenergan [Prometha* Contraindicati (more content not included)...[facility]12-23-2024 Miscellaneous Notes* Telephone Encounter - Lilibeth Reagan [...] up due tofalls. documented in this encounterSaint Francis Hospital & Health ServicesXbvrjgwadn73-96-6388 Telephone encounter Note* Telephone Encounter - Lilibeth [...] hold to start up due tofalls. [facility] ServicesAeefxfunhq48-66-3370 NoteHNO ID: [id number] Author: AUDREY TORRES APRN.MOLD CARRIER Service: ? Author Type: Nurse Practitioner Type: Progress Notes Filed: 02/24/2024 15:47 Note Text: The patient did not show up for this appointment.[facility] 02-24-2024 History of Present illness Narrative* Audrey Torres APRN.MOLD CARRIER - 02/24/2024 3:47 PM EST The patient did not show up for this appointment. documented in this encounterMemorial Health System Marietta [facility] Hospital12-12-2024 Telephone encounter Note * Telephone Encounter - Lilibeth Reagan - 02/23/2024 4:14 PM EST Spoke to son, transportation, and he scheduled her Eval on 02/27 w/ Betina Wise, OT. [facility] ServicesDcffndykca68-98-4564 Miscellaneous Notes* Telephone Encounter - Lilibeth Reagan - 02/23/2024 4:14 PM EST Spoke to son, transportation, and he scheduled her Eval on 02/27 w/ Betina Wise, OT. * Telephone Encounter - Lilibeth Reagan - 02/22/2024 9:37 AM EST LM requesting a call back to schedule OT for Parkinson's. Tuesday w/ Lisa can be offered. documented in this encounterSaint Francis Hospital & Health ServicesDliatdivgm14-23-5436 Telephone encounter Note* Telephone Encounter - Lilibeth Reagan - 02/22/2024 9:37 AM EST LM requesting a call back to schedule OT for Parkinson's. Tuesday w/ Lisa can be offered. [facility] ServicesDlzsukrmcg66-20-1671 History of Present illness Narrative* Mac Villasenor NP - 02/21/2024 1:00 PM EST Images from the original note were not included. Alton Barker is a 83 y.o. female presents with chief complaint of 3 Month Follow Up HPI: HPI Patient fell Tuesday. She was seen at [facility] on 02/17. ER and CT are in [...] subsequently taken to the emergency room at [facility]. She has been receiving physical therapy from [...] hose recently. She is still seeing the cerner analyst. She has a CT scan scheduled for the end of April. MEDICATIONS Current: Synthroid, atorvastatin, metformin, metoprolol, Mounjaro IMMUNIZATIONS She is up to date with her pneumonia and influenza vaccines. 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[facility]) Chronic venous insufficiency Circulating anticoagulant disorder ([facility]) 09/29/2020 Compression fracture of L1 lumbar vertebra ([facility]) Coronary atherosclerosis of [place] coronary artery ([facility]) Current use of proton pump inhibitor Depression ([facility]) Dermatophytosis of nail Esophageal dilatation Esophageal dysphagia Gait instability Gastroesophageal reflux disease without esophagitis GERD (gastroesophageal reflux disease) Hallux hammertoe, right History of DVT (deep vein thrombosis) Hyperlipidemia ([facility]) Macular degeneration (senile) of retina Mild cognitive impairment Mixed hyperlipidemia ([facility]) Multilevel degenerative disc disease Neuropathy Occipital neuralgia of right side On warfarin therapy Osteoarthritis involving multiple joints on both sides of body Osteoarthritis involving multiple joints on both sides of body Other seborrheic dermatitis Parkinson's disease ([facility]) Posterior tibial tendinitis, left leg Primary osteoarthritis of left hand Pulmonary fibrosis ([facility]) PVD (peripheral vascular disease) ([facility]) Recurrent falls Severe obesity (BMI >= 40) ([facility]) Sleep apnea Type 2 diabetes mellitus with other diabetic neurological complication ([facility]) Type II diabetes mellitus ([facility]) Urge incontinence Vaginitis, atrophic Vitamin D deficiency [...] % ointment Topical, 2 times daily, Use [employer] coupon
Use bid for 2 weeks to [...] Mounjaro 7.5 mg will be sent to [facility]. Blood work, including a complete blood count, [...] balance, strengthening. Diagnosis Plan 1. Morbid obesity ([facility]) Ambulatory referral to Physical Therapy 2. Type 2 diabetes mellitus with other specified complication, without long-term current use of insulin ([facility]) POCT glycated hemoglobin, total docked device Ambulatory referral to Physical Therapy Tirzepatide (Mounjaro) 7.5 MG/0.5ML solution auto-injector 3. Parkinson's disease without dyskinesia or fluctuating manifestations ([facility]) Ambulatory referral to Physical Therapy 4. Frequent falls Ambulatory referral to Physical Therapy 5. Acquired hypothyroidism ([facility]) TSH 6. Type 2 diabetes mellitus with hyperglycemia ([facility]) 7. Immunodeficiency due to conditions classified elsewhere ([facility]) Patient is here for follow up of chronic conditions. I am following Dr Rabago's established plan of care for these issues. Dr Rabago is in the office suite today and is supervising patient care. documented in this encounterSaint Francis Hospital & Health ServicesNcyzckukug84-85-8201 History of Present illness Narrative* Urbano Hutton, DPM - 02/16/2024 1:00 PM EST Images [...] if problems arise.. documented in this encounterSaint Francis Hospital & Health ServicesYbtgjejvvg47-38-3192 History of Present illness Narrative* Mac Villasenor [...] L1 lumbar vertebra (CMS/HCC) Coronary atherosclerosis of [place] coronary artery (CMS/HCC) Current use of proton [...] Left CATARACT EXTRACTION Bilateral 2012 CHOLECYSTECTOMY COLONOSCOPY 2011 FINGER NAIL SURGERY 09/2018 [...] % ointment Topical, 2 times daily, Use Goodrx coupon
Use bid for 2 [...] discussed. If there is no improvement, a PRACTICE SPECIALIST referral will be considered. She will provide an update on her condition in 1 week. Symptoms of burning of vagina with white discharge. 2. Vaginal yeast infection. The yeast infection is likely secondary to uncontrolled diabetes. Treatment includes oral antifungal Diflucan 150 mg for two doses and high potency steroid ointment for 2 weeks. If there is no improvement, a PRACTICE SPECIALIST referral will be considered. She will provide an update on her condition in 1 week. 3. Uncontrolled diabetes. She has just received Mounjaro and started using it. Diagnosis Plan 1. Vaginal yeast infection fluconazole (Diflucan) 150 MG tablet 2. Atrophic vaginitis triamcinolone (Kenalog) 0.5 % ointment 3. Diabetic peripheral neuropathy associated with type 2 diabetes mellitus ([facility]) documented in this encounterSaint Francis Hospital & Health ServicesNkfjzwyelw34-12-6970 History of Present illness Narrative* Urbano Hutton [...] to determine sizine. [facility] heat molded insoles. 4. Patient will be contacted when the necessary paperwork is completed to schedule an appointment for pick-up. Neuropathy: Unfortunately the Qutenza is not covered by her insurance, it is non-formulary. She does not want to proceed with application due to the cost at this time. documented in this encounterSaint Francis Hospital & Health ServicesSozubgotal31-97-9082 Telephone encounter Note* Telephone Encounter - Batsheva Alarcon MA - 11/16/2023 5:53 PM EDT Please fix the directions for this medication. The pharmacist said it is unclear. Thank you. [facility] ServicesQvzmxiinba14-37-9209 Miscellaneous Notes* Telephone Encounter - Batsheva Alarcon MA - 11/16/2023 5:53 PM EDT Please fix the directions for this medication. The pharmacist said it is unclear. Thank you. documented in this encounterSaint Francis [facility] [id number] History of Present illness Narrative* Mac Villasenor [...] prescriptions and Vivian [facility] She has not received her influenza vaccine this year. IMMUNIZATIONS She had a couple of pneumonia vaccines in 2013 and 2014. 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CMS/HCC) Chronic venous insufficiency Circulating anticoagulant disorder (CMS/HCC) 09/29/2020 Compression fracture of L1 lumbar vertebra ([facility]) Coronary atherosclerosis of [place] coronary artery ([facility]) Current use of proton pump inhibitor Depression ([facility]) Dermatophytosis of nail Esophageal dilatation Esophageal dysphagia Gait instability Gastroesophageal reflux disease without esophagitis GERD (gastroesophageal reflux disease) Hallux hammertoe, right History of DVT (deep vein thrombosis) Hyperlipidemia ([facility]) Macular degeneration (senile) of retina Mild cognitive impairment Mixed hyperlipidemia ([facility]) Multilevel degenerative disc disease Neuropathy Occipital neuralgia of right side On warfarin therapy Osteoarthritis involving multiple joints on both sides of body Osteoarthritis involving multiple joints on both sides of body Other seborrheic dermatitis Parkinson's disease ([facility]) Posterior tibial tendinitis, left leg Primary osteoarthritis of left hand Pulmonary fibrosis ([facility]) PVD (peripheral vascular disease) ([facility]) Recurrent falls Severe obesity (BMI >= 40) ([facility]) Sleep apnea Type 2 diabetes mellitus with other diabetic neurological complication ([facility]) Type II diabetes mellitus ([facility]) Urge incontinence Vaginitis, atrophic Vitamin D deficiency [...] tablet TID cholecalciferol (Vitamin D-3) 50 MCG (2000 UT) capsule 1 capsule, Every 24 hours [...] Parkinson's disease without dyskinesia or fluctuating manifestations ([facility]) 2. Type 2 diabetes mellitus with other specified complication, 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 ([facility]) POCT Glycated hemoglobin, total Tirzepatide (Mounjaro) 2.5 MG/0.5ML solution pen-injector Comprehensive metabolic panel CBC and differential Hemoglobin a1c with eag Lipid panel Comprehensive metabolic panel CBC and differential Hemoglobin a1c with eag Lipid panel 3. GERMANIA (obstructive sleep apnea) 4. Pulmonary fibrosis ([facility]) 5. Vaginal yeast infection clotrimazole (Lotrimin) 1 [...] in 3 months. documented in this encounterSaint Francis Hospital & Health [id number] Instructions* Patient Instructions* Gloria Perez APRN.MOLD CARRIER - 10/25/2023 2:18 PM EDT It was [...] or you can send a message through [employer]. You can also now schedule and select appointments through [employer]. Gloria Perez APRN.ELDON documented in this encounterMem[facility] History of Present illness Narrative* Gloria Perez APRN.ELDON - 10/25/2023 1:30 PM EDT [facility] - FOLLOW UP EVALUATION Honey Rabago DO [address] [facility] [address] Dear Honey Rabago DO: I had the [...] mind about physical therapy and if the cerner analyst approves Depression and anxiety: Continue Venlafaxine (Effexor) [...] Exercises Regularly: Yes She downloaded exercises off [employer]. ALLERGIES Allergen Reactions Hydrocodone-Acetami* Mental Status [...] 01/18/2023: Pt takes 2 tabs daily per [facility] med list MEDICATION, NON-DATABASE 750 mg [...] or around: 02/22/24 Level of service : 50151 ( 30-39 min). Time spent 39 min on the day of service, which included preparing to see the patient, bajq-kc-cxtz patient care, completing clinical documentation, obtaining and/or reviewing separately obtained history, performing a medically appropriate examination, counseling and educating the patient/family/caregiver, and ordering medications, tests, or procedures. Gloria Perez APRN.MOLD CARRIER documented in this encounterMemorial Health [facility]08-13-2024 NoteHNO ID: [id number] Author: GLORIA PEREZ APRN.CNP Service: ? Author Type: Nurse Practitioner Type: Progress Notes Filed: 11/02/2023 21:17 Note Text: [facility] - FOLLOW UP EVALUATION Honey Rabago DO [address] [place] [address] Dear Honey Rabago DO: I had the [...] mind about physical therapy and if the cerner analyst approves Depression and anxiety: Continue Venlafaxine (Effexor) [...] No Therapy and Exercise: Last PT Date: Late spring 2024 Last OT Date: Last ST Date: spring [...] (ESTRACE) 0.01 % (0 (more content not included)...[facility]04-11-2024 Instructions* Patient Instructions* Gloria Perez APRN.MOLD CARRIER - 06/23/2023 3:54 PM EDT It was a pleasure to see you today. We addressed the following diagnoses: Parkinson's disease without dyskinesia, with fluctuating manifestations (hcc) My recommendations are as follows: 06/23/2023 Visit: Parkinson's disease: Change the timing of the Sinemet to that noted below. Please let me know if you change your mind about physical therapy and if the cerner analyst approves Depression and anxiety: Continue Venlafaxine (Effexor) [...] or you can send a message through [employer]. You can also now schedule and select appointments through [employer]. Gloria Perez APRN.MOLD CARRIER From the Parkinson's Foundation: [email or web address].parkinson.org What Can [...] to treat dystonia. Injection of botulinum to philippe A into the salivary glands of the [...] can make phlegm worse. documented in this encounterMemorial Health [facility]04-11-2024 History of Present illness Narrative* Gloria Perez APRN.ELDON - 06/23/2023 3:00 PM EDT [facility] - FOLLOW UP EVALUATION Honey Rabago DO [address] [facility] [address] Dear Honey Rabago DO: I had the pleasure of seeing Ms. Barker for follow-up today. As you know she is a 82 year old right-handed female with a history of Parkinson's disease since 2013. She is seen with her son. Subjective Previous Plan-01/20/2023 Visit: Parkinson's disease: Continue current medication schedule but discuss with the die storage clerk if you can take the Sinemet on [...] Exercises Regularly: Yes She downloaded exercises off [employer]. ALLERGIES Allergen Reactions Hydrocodone-Acetami* Mental Status [...] 01/18/2023: Pt takes 2 tabs daily per [facility] med [facility] MEDICATION, NON-DATABASE 750 mg two times [...] TABLETS BY MOUTH TWICE DAILY [facility]IVIAN 2 SENSOR kit apply 1 SENSOR [...] mind about physical therapy and if the cerner analyst approves Depression and anxiety: Continue Venlafaxine (Effexor) [...] Mirtazapine 7.5mg 1 Level of service : 29160 (40-54 min). Time spent 53 min on the day of service, which included preparing to see the patient, vmht-ir-jtcy patient care, completing clinical documentation, obtaining and/or reviewing separately obtained history, performing a medically appropriate examination, and counseling and educating the patient/family/caregiver. Gloria Perez APRN.ELDON documented in this encounterMemorial [facility]04-11-2024 NoteHNO ID: [id number] Author: GLORIA PEREZ APRN.CNP Service: ? Author Type: Nurse Practitioner Type: Progress Notes Filed: 06/23/2023 20:12 Note Text: [facility] - FOLLOW UP EVALUATION Honey Rabago DO [address] [place] [address] Dear Honey Rabago DO: I had the pleasure of seeing Ms. Barker for follow-up today. As you know she is a 82 year old right-handed female with a history of Parkinson's disease since 2013. She is seen with her son. Subjective Previous Plan-01/20/2023 Visit: Parkinson's disease: Continue current medication schedule but discuss with the die storage clerk if you can take the Sinemet on [...] so now less stre (more content not included)...[facility]12-01-2023 Miscellaneous Notes* Addendum Note - Anu Hillman RN - 02/11/2023 2:59 PM ESTAddended by: ANU HILLMAN on: 02/11/2023 02:59 PM Modules accepted: Orders * Telephone Encounter - Anu Hillman RN - 02/11/2023 2:57 PM EST Order pended to preferred pharmacy Last OV 01/20/23 Next OV 06/23/23 * Telephone Encounter - Gali Lange - 02/11/2023 1:52 PM EST E- [id number] [place] [address] - [address] [address] [phone] [id number] carbidopa-levodopa (SINEMET 25-100) 25-100 mg per tablet Patient son called in today in regards to medication and wanting to switch pharmacy, they were toldthe best way to do this would be to request a new prescription. They would like it sent to [facility] Thank you! documented in this encounterMemorial Health [facility]11-09-2023 Instructions* Patient Instructions* Gloria Perez APRN.CNP - 01/20/2023 3:46 PM EST It was a pleasure to see you today. We addressed the following diagnoses: Parkinson's disease without dyskinesia, with fluctuating manifestations (primary encounter diagnosis) Depression with anxiety My recommendations are as follows: 01/20/2023 Visit: Parkinson's disease: Continue current medication schedule but discuss with the die storage clerk if you can take the Sinemet on [...] or you can send a message through [employer]. You can also now schedule and select appointments through [employer]. Gloria Perez APRN.ELDON documented in this encounterMemorial [facility]11-09-2023 History of Present illness Narrative* Gloria Perez APRN.CNP - 01/20/2023 3:00 PM EST [facility] - FOLLOW UP EVALUATION Honey Rabago DO [address] [facility] [address] Dear Honey Rabago DO: I had the [...] 01/18/2023: Pt takes 2 tabs daily per [facility] med list MEDICATION, NON-DATABASE 750 mg [...] erin is going to discuss with the die storage clerk, see if she can take her Parkinson's [...] current medication schedule but discuss with the die storage clerk if you can take the Sinemet on [...] Mirtazapine 7.5mg 1 Level of service : 88885 (40-54 min). Time spent 47 min on the day of service, which included preparing to see the patient, qtds-qg-alzb patient care, completing clinical documentation, obtaining and/or reviewing separately obtained history, performing a medically appropriate examination, counseling and educating the patient/family/caregiver, and ordering medications, tests, or procedures. Gloria Perez APRN.CNP documented in this encounterMemorial [facility]04-27-2023 Instructions* Patient Instructions* Gloria Perez APRN.CNP [...] or you can send a message through [employer]. You can also now schedule and select appointments through [employer]. Gloria Perez APRN.CNP documented in this encounterMemorial [facility]04-27-2023 History of Present illness Narrative* Gloria Perez APRN.CNP - 07/08/2022 3:00 PM EDT [facility] - FOLLOW UP EVALUATION Honey Rabago DO, DO [address] [place] [address] Dear Honey Rabago DO DO: I had [...] She likes the staff. The director and promotions director have to chip into cook since the [email or web address] cook and this has been good from [...] or around: 01/07/23 Level of service : 23044 (40-54 min). Time spent 47 min on the day of service, which included preparing to see the patient, pahk-bw-nvsg patient care, completing clinical documentation, obtaining and/or reviewing separately obtained history, performing a medically appropriate examination, counseling and educating the patient/family/caregiver, and ordering medications, tests, or procedures. Gloria Perez APRN.CNP documented in this encounterMemorial Health [facility]01-31-2023 Miscellaneous Notes* Telephone Encounter - Anu [...] notify patient. Belen Tim documented in this encounterMemorial Health [facility]12-05-2022 Miscellaneous Notes* Telephone Encounter - Gloria Perez APRN.CNP - 02/15/2022 1:53 PM EST I tried calling, Gina, the group social worker in her primary care provider's office. I left a message requesting a call back. Gloria Perez APRN-MOLD CARRIER documented in this encounterMemorial Health [facility]10-04-2022 Evaluation note* Encounter Date Diagnosis Assessment [...] Please call patient's son Jose David at [phone] with results. Spoke to Jose David and discussed above. Spoke with KORTNEY Albert ([phone]) and given above instructions. Patient may get home testing for INRs set-up, will inform clinic if home testing begins. Home Health Order: Draw PT/INR on 01-04-22 Seen by Justin Nicolas PharmD [facility] Other 09-20-2022 Evaluation note* Encounter Date Diagnosis [...] discharged on 11/25 from inpatient rehab at [facility] with above plan and therapeutic INRs. Follow up in 2 weeks. Please call patient's son Jose David at [phone] with results. Spoke to Jose David and discussed above. Spoke with KORTNEY Albert ([phone]) and given above instructions. Patient may get home testing for INRs set-up, will inform clinic if home testing begins. Home Health Order: Draw PT/INR on 12-14-21 Seen by Justin Nicolas Pharm[facility] Other 09-14-2022 Discharge summary Author Alcides Moya [facility] November 25, 2021 12:57pmNote Date/TimeSept2021 8:[address] [address] Discharge Summary Signed Patient: Alton Barker MR#: [id number] : 1940 Acct:[id number] Age/Sex: 81 / F Adm Date: 2 Loc: Room: [address] [place] [address]: Alcides Moya MD Copies to: [...] Plan Discharge Plan Patient Disposition: Home Health [facility] Activity: Ambulate as Tolerated Diet: [...] on Tuesday11/30/21, with results to [facility], who will continue to manage your Coumadin dosing, as they were prior to your hospitalization. -Coumadin dosing: Take 2mg every day EXCEPT Tuesday and . Take 1mg on Tuesday and . Your Home Health agency is [facility] Home Health ( ). They [...] signed by Alcides Moya MD> 11/25/21 1257 [facility] Work Phone: 1(472) 843-980209-12-2022 Progress note Author Alcides Moya [facility] November 23, 2021 3:01pmNote Date/TimeSept2021 1:36[place] [address] Physiatry(Rehab) Progress Note Signed Patient: Alton Barker MR#: [id number] : 1940 Acct:[id number] Age/Sex: 81 / F Adm Date: 2 Loc: Room: 9M0540-4 Type: ADM IN Attending Dr: Alcides Moya MD Copies to: ~ <Elham Mendoza APRN - Last Filed: 11/23/21 14:05> Date of Service: 11/23/2021 Subjective <Elham Mendoza APRN - Last Filed: 11/23/21 14:05> Subjective Narrative: Ms. Barker is a 81 year old female With history of Parkinson's disease, followed at the [facility], admitted to the rehabilitation unit with [...] it finally took effect, it was already geospatial specialist. I reminded that she can take her [...] PRN zz.Pharmacy Note Protocol Assessment/Plan <Elham Mendoza, HEIDI - Last Filed: 11/23/21 14:05> Assessment/Plan (1) [...] Allied health note review, nursing note review, otm consultant note review,discussion with nursing and case management, and more than 50% of my time was spent on counseling and coordination of care, time spent 18 minutes Patient was personally seen by me, Dr. Moya, on the day of encounter, reviewed the history and therelevant portions of the chart, including current orders, allied health and otm consultant notes, labs/imaging and performed day elements [...] signed by Alcides Moya MD> 11/23/21 1501 [facility] Work Phone: 1(369) 317-401409-12-2022 Progress note Author Alcides Moya [facility] November 23, 2021 2:39pmNote Date/TimeSeptember 2021 1:19pm[place] [address] Physiatry(Rehab) Progress Note Signed Patient: Alton Barker MR#: [id number] : 1940 Acct:[id number] Age/Sex: 81 / F Adm Date: 2 Loc: Room: [address] [place] [address] Type: ADM IN Attending Dr: Alcides Moya MD Copies to: ~ <Elham Mendoza APRN - Last Filed: 11/20/21 13:21> Date of Service: 11/20/2021 Subjective <Elham Mendoza APRN - Last Filed: 11/20/21 13:21> Subjective Narrative: Ms. Barker is a 81 year old female With history of Parkinson's disease, followed at the [facility], admitted to the rehabilitation unit with [...] Allied health note review, nursing note review, otm consultant note review,discussion with nursing and case management, and more than 50% of my time was spent on counseling and coordination of care, time spent 16 minutes Patient was personally seen by me, Dr. Moya, on the day of encounter, reviewed the history and therelevant portions of the chart, including current orders, allied health and otm consultant notes, labs/imaging and performed day elements of exam and I formulated the plan of care and facilitated the medical decision making and confirmed the nurse practitioner note, as above Documented By: Elham Mendoza APRN 11/20/21 1 310 Signed By: <Electronically signed by HEIDI Mendoza> 11/20/21 1321 <Electronically signed by Alcides Moya MD> 11/23/21 3598 [facility] Work Phone: 1(189) 449-632309-08-2022 Progress note Author Rosa Maria Odell [facility] November 19, 2021 5:37pmNote Date/TimeSept2021 4:57[place] [address] Hospitalist Progress Note Signed Patient: Alton Barker MR#: [id number] : 1940 Acct:[id number] Age/Sex: 81 / F Adm Date: 2 Loc: Room: 8R6539-5 Type: ADM IN Attending Dr: Alcides Moya [...] by Rosa Maria Odell MD> 11/19/21 1737 [facility] Work Phone: 1(251) 116-559709-07-2022 Progress note Author Alcides Moya [facility] November 18, 2021 12:40pmNote Date/TimeSept2021 10:56[place] [address] Physiatry(Rehab) Progress Note Signed Patient: Alton Barker MR#: [id number] : 1940 Acct:[id number] Age/Sex: 81 / F Adm Date: 2 Loc: Room: [address] [place] [address] Type: ADM IN Attending Dr: Alcides Moya [...] 11/12/21 07:30 11/17/21 06:31 Omeprazole 20 Mg Capsule.Dr PO 11/12/22 07:29 Not Given DAILY.AC.BKFAST KAYLIN [...] Allied health note review, nursing note review, otm consultant note review,discussion with nursing and case management, and more than 50% of my time was spent on counseling and coordination of care, time spent 23 minutes Patient was personally seen by me, Dr. Moya, on the day of encounter, reviewed the history and therelevant portions of the chart, including current orders, allied health and otm consultant notes, labs/imaging and performed day elements [...] signed by Alcides Moya MD> 11/18/21 1240 [facility] Work Phone: 1(626) 958-293509-03-2022 Progress note Author Alcides Moya [facility] November 14, 2021 8:45amNote Date/TimeSept2021 3:25pm[place] [address] Physiatry(Rehab) Progress Note Signed Patient: Alton Barker MR#: [id number] : 1940 Acct:[id number] Age/Sex: 81 / F Adm Date: 2 Loc: Room: [address] [place] [address] Type: ADM IN Attending Dr: Alcides Moya MD Copies to: ~ Date of Service: 11/13/2021 Subjective Subjective Narrative: Ms. Barker is a 81 year old female With history of Parkinson's disease, followed at the [facility], admitted to the rehabilitation unit with [...] Acute (10) Chronic anticoagulation: Code(s): Z79.01 - intermodal dispatcher (current) use of anticoagulants Status: Acute (11) Urinary tract infection: Code(s): N39.0 - Urinary tract infection, site not specified Status: Acute (12) Back pain: Code(s): M54.9 - Dorsalgia, unspecified Status: Acute Plan 81-year-old female with history of Parkinson's disease, follows at the [facility], admitted tot rehabilitation unit with functional [...] and self-care. Discharge planning:Insurance denial overturned via besj-ei-ttrc. 2 weeks approved. Plan for discharge home November 25 Plan: I completed a substantive portion of this encounter, the medical decision makingportion of this note in its entirety, including Allied health note review, nursing note review, otm consultant note review,discussion with nursing and case management, and more than 50% of my time was spent on counseling and coordination of care, time spent 26minutes Patient was personally seen by me, Dr. Moya, on the day of encounter, reviewed the history and therelevant portions of the chart, including current orders, allied health and otm consultant notes, labs/imaging and performed day elements of exam and I formulated the plan of care and facilitated the medical decision making and confirmed the nurse practitioner note, as above Documented By: Alcides Moya MD 11/13/21 1525 Signed By: <Electronically signed by Alcides Moya MD> 11/14/21 0845 [facility] Work Phone: 1(895) 405-953709-01-2022 Consult note Author Justice De Oliveira [facility] November 12, 2021 5:09pmNote Date/TimeSept2021 3:21pm[place] [address] Hospitalist Consult Note Signed Patient: Alton Barker MR#: [id number] : 1940 Acct:[id number] Age/Sex: 81 / F Adm Date: 2 Loc: Room: [address] [place] [address] Type: ADM IN Attending Dr: Alcides Moya [...] incontinence. Patient with underlying Parkinson's follows with [facility] neurology and movement disorder clinicians there. [...] course planned. [facility] and initiated [...] negative unless noted below or in HPI [facility] Attestation Statement: The following information was validated [...] mg-vit E 90 mg-zinc 40 mg-copper 1 kl-jeqyjw-viqswt capsule (PreserVision AREDS-2) 1 tab PO BID [...] Sodium 139, Potassium 3.9, Chloride 100, Carbon Plrpzje60.0 H, Anion Gap 11.9, BUN 8 L, [...] Neut % (Auto) 45.9, Lymph % (Auto) 39.7,[place] % (Auto) 10.1, Eos % (Auto) 3.8, Baso % (Auto) 0.5, Neut # (Auto) 2.3, Lymph # (Auto) 2.0, [place] # (Auto) 0.5, Eos # (Auto) 0.2, [...] to manage warfarin 6. Hypothyroid?levothyroxine Documented By: Tonya SuhWILFRID 2 1520 Signed By: <Electronically signed by WILFRID Tonya Jakob Angeli> 11/12/21 1543 <Electronically signed by Justice De Oliveira DO> 11/12/21 1709 [facility] Work Phone: 1(232) 174-955708-31-2022 History and physical note Author Alcides Moya [facility] November 11, 2021 6:55pmNote Date/TimeAugust 2021 1:26pm[place] [address] Physiatry (Rehab) H&P Signed Patient: Alton Barker MR#: [id number] : 1940 Acct:[id number] Age/Sex: 81 / F Adm Date: 2 Loc: Room: [address] [place] [address] Type: ADM IN Attending Dr: Alcides Moya MD Copies to: MD Honey Pate DO~ Date of Service: 11/11/2021 HPI The patient was seen and examined on: 11/11/21 Etiologic Diagnosis/Impairment Group: 08.9 History of Present Illness: Ms. Barker is a 81 year old female With history of Parkinson's disease, followed at the [facility], admitted to the rehabilitation unit with [...] Lives at home with her son and mucdphls-wt-lcj. Chronic conditions are otherwise stable with current [...] mg-vit E 90 mg-zinc 40 mg-copper 1 vg-habwnp-vrimeb capsule (PreserVision AREDS-2) 1 tab PO BID [...] Discharge Destination: Home Rehabilitation [facility]: 10.20 Primary Diagnosis: L1 compression fracture h/o [...] 24 hour daily monitoring and intervention from Maternity Nurse as well as other consulting physicians including internal medicine as well as 24 hour daily slot technician nursing - for medical safe / optimal [...] Acute (10) Chronic anticoagulation: Code(s): Z79.01 - penitentiary (current) use of anticoagulants Status: Acute (11) Urinary tract infection: Code(s): N39.0 - Urinary tract infection, site not specified Status: Acute (12) Back pain: Code(s): M54.9 - Dorsalgia, unspecified Status: Acute Plan 81-year-old female with history of Parkinson's disease, follows at the [facility], admitted to the rehabilitation unit with [...] and self-care. Discharge planning:Insurance denial overturned via [id number]. Plan for discharge home in 1 to 2 weeks. Plan: I completed a substantive portion of this encounter, the medical decision making portion of this note in its entirety, including Allied health note review, nursing note review, otm consultant note review, discussion with nursing and case management, and more than 50% of my time was spent on counseling and coordination of care, time spent 65 minutes Patient was personally seen by me, Dr. Moya, on the day of encounter, reviewed the history and therelevant portions of the chart, including current orders, allied health and otm consultant notes, labs/imaging and performed day elements of exam and I formulated the plan of care and facilitated the medical decision making and confirmed the nurse practitioner note, as above Documented By: Alcides Moya MD 11/11/211853 Signed By: <Electronically signed by Alcides Moya MD> 11/11/211854 [facility] Work Phone: [phone]) 688-683508-25-2022 Miscellaneous Notes* Telephone Encounter - Gloria Perez [...] to in-health rehab. Currently she is at [facility] in [place] - Room 3009 Bed. 2. * Telephone Encounter - Lyly Pedersen - 11/05/2021 1:04 PM EDT ----- Message from Gloria Perez APRN.MOLD CARRIER sent at 11/03/2021 8:01 AM EDT ----- [...] know. Thank you, Gloria documented in [facility] History and physical note Author Enrrique Mota [facility] November 04, 2021 8:55pmNote Date/TimeAugust 2021 6:26pm[place] [address] Hospitalist H&P Signed Patient: Alton Barker MR#: [id number] : 1940 Acct:[id number] Age/Sex: 81 / F Adm Date: 2 Loc: Room: [address] [place] [address] Type: ADM IN Attending Dr: Enrrique Mota [...] mg-vit E 90 mg-zinc 40 mg-copper 1 mz-klwwpb-bdlsef capsule (PreserVision AREDS-2) 1 tab PO BID [...] % (Auto) 20.3 % (.) 11/04/21 16:40 [place] % (Auto) 9.7 % (.) 11/04/21 16:40 Eos % (Auto) 1.7 % (.) 11/04/21 16:40 Baso % (Auto) 0.6 % (.) 11/04/21 16:40 Neut # (Auto) 5.3 x10E3/uL (1.8-7.7) 11/04/21 16:40 Lymph # (Auto) 1.6 x10E3/uL (1.00-4.8) 11/04/21 16:40 [place] # (Auto) 0.8 x10E3/uL (0.0-0.8) 11/04/21 16:40 [...] <Electronically signed by Enrrique Mota MD> 11/04/212054 [facility] Work Phone: [phone] 559-551608-11-2022 Evaluation note* Encounter Date Diagnosis Assessment Notes [...] 2 weeks. Seen by Justin Nicolas PharmD [facility] 07-21-2022 Instructions* Patient Instructions* Gloria Perez [...] or you can send a message through [employer]. You can also now schedule and select appointments through [employer]. Gloria Perez APRN.ELDON documented in this encounterMem[facility]07-[facility]-2022 History of Present illness Narrative* Gloria Perez APRN.CNP - 10/01/2021 12:13 PM EDT [facility] - FOLLOW UP EVALUATION Honey Rabago, DO, DO [address] [facility] [address] [facility] [address] I had the pleasure of seeing Ms. [...] loss is noticeable but LTM is good. [place] Cognitive Assessment (MoCA): 29 (02/03/2021 10:50 AM) [...] is now living with her son and toppndxp-zo-qnu. She has not been taking her medication [...] 1.5 1.5 Effexor Level of service : 99445 (40-54 min). Time spent 49 (12:14pm-1:03pm) min on the day of service, which included preparing to see the patient, oprn-ri-sult patient care, completing clinical documentation, obtaining and/or reviewing separately obtained history, performing a medically appropriate examination, counseling and educating the patient/family/caregiver and ordering medications, tests, or procedures. Gloria Perez APRN.ELDON documented in this encounterMemorial [facility]07-19-2022 Evaluation note* Encounter Date Diagnosis Assessment [...] 3 weeks. Seen by Juliana Ozuna RN [facility] 06-28-2022 NoteHISTORY: Bone density screening. COMPARISON: [...] and signed by Delgado Moya on 09/08/[address] [place], [place] 6544006-15-2022 Evaluation note* Encounter Date Diagnosis Assessment Notes [...] significant other. Seen by Juliana Ozuna RN [facility] Other 05-25-2022 Evaluation note* Encounter Date Diagnosis [...] INSTRUCTIONS: Please take as instructed above. Notify [facility], Antico[facility] [phone] option 5 for the following: -Call immediately [...] person tells you to adjust your warfarin. [facility] 05-09-2022 Evaluation note* Encounter Date Diagnosis [...] significant other. Seen by Justin Nicolas PharmD [facility] 03-30-2022 Evaluation note* Encounter Date Diagnosis [...] family. Calendar provided. Seen by Anu Alva [facility]/Anuradha Case LPN [facility] Other 03-15-2022 Evaluation note* Encounter Date Diagnosis [...] she voiced understanding. Seen by Anu Alva [facility] 01-12-2022 Evaluation note* Encounter Date Diagnosis [...] 3 weeks. Seen by Justin Nicolas PharmD [facility] [employer] [employer] Other 12-15-2021 Evaluation note* Encounter Date Diagnosis [...] 4 weeks. Seen by Juliana Ozuna RN [facility] 11-17-2021 Evaluation note* Encounter Date Diagnosis [...] 4 weeks. Seen by Juliana Ozuna RN [facility] 09-29-2021 Evaluation note* Encounter Date Diagnosis [...] 4 weeks. Seen by Justin Nicolas PharmD [facility] Consult note Author Jairo Benson [facility] November 05, 2021 3:10pmNote Date/TimeAugust 2021 3:10pm[place] [address] Psychiatry Consult Note Signed Patient: Alton Barker MR#: [id number] : 1940 Acct:[id number] Age/Sex: 81 / F Adm Date: 2 Loc: Room: [address] [place] [address] Type : ADM INOo Attending Dr: Enrrique [...] mg-vit E 90 mg-zinc 40 mg-copper 1 es-wwfywd-sojpvg capsule (PreserVision AREDS-2) 1 tab PO BID [...] Cloudy A Urine pH 5.5 Ur Specific [place] 1.029 Urine Protein 30 H Urine Glucose [...] signed by Jairo Benson MD> 11/05/21 1510 [facility] Work Phone: Consult note Author Oswaldo Almonte [facility] November 06, 2021 11:33amNote Date/TimeAugust 2021 11:33[place] [address] Neurosurgery Consult Note Signed Patient: Alton Barker MR#: [id number] : 1940 Acct:[id number] Age/Sex: 81 / F Adm Date: 2 Loc: Room: [address] [place] [address] Type: ADM INOo Attending Dr: Enrrique Mota [...] mg-vit E 90 mg-zinc 40 mg-copper 1 qo-cbkthj-fwhvgs capsule (PreserVision AREDS-2) 1 tab PO BID [...] Cloudy A, Urine pH 5.5, Ur Specific [place] 1.029, Urine Protein 30 H, Urine Glucose [...] Neut % (Auto) 67.7, Lymph % (Auto) 20.3,[place] % (Auto) 9.7, Eos % (Auto) 1.7, Baso % (Auto) 0.6, Neut # (Auto) 5.3, Lymph # (Auto) 1.6, [place]# (Auto) 0.8, Eos # (Auto) 0.1, Baso [...] <Electronically signed by MD Oswaldo Almonte> 11/06/21 1801 [facility] Work Phone: Discharge summary Author Gaye Claire [facility] November 11, 2021 5:21pmNote Date/TimeAugust 2021 11:33[place] [address] Discharge Summary Signed Patient: Alton Barker MR#: [id number] : 1940 Acct:[id number] Age/Sex: 81 / F Adm Date: 2 Loc: Room: [address] [place] [address]: Gaye Claire MD Copies to: Tonya Suh, [facility]- MD Honey Collado,DO~ Providers Date of Admission: [...] movement disorderspecialist Gloria Lal nurse practitioner at [facility] routinely. She was continued on her [...] Discharge Plan Discharge Plan Patient Disposition: Rehab [facility] Activity: No Activity Restriction Diet: [...] patch topical QAM Documented By: WILFRID Samuels 08/31/2 2 1300 Signed By: <Electronically signed by WILFRID Suh> 11/11/21 1356 <Electronically signed by Gaye Claire MD> 11/11/21 1721 [facility] Work Phone: Evaluation noteNo assessment information available [facility] noteNo InformationNort [facility] [employer] Other Evaluation note* Diagnosis Recurrent episodes of unresponsiveness- Primary Parkinson's disease (HCC) Paralysis agitans Depression with anxiety Dysthymic disorder Fatigue, unspecified type Excessive daytime sleepiness documented in this encounter [facility]* Diagnosis Onset Date Resolution Status Back pain acuteChronic anticoagulationacuteCompression fractureacuteDepressionacute Frequent fallsacuteImpaired mobility and ADLsacuteParkinsons diseaseacuteUrinary tract infectionacuteBack painacuteChronic anticoagulationacuteCompression fractureacuteDepressionacuteDiabetesacuteGERD (gastroesophageal reflux disease) acuteHyperlipidemiaacuteHypertensionacuteHypothyroidacuteImpaired mobility and ADLsacuteParkinsons diseaseacuteUrinary tract infectionacute [facility] Work Phone: Evaluation note* Diagnosis Onset Date Resolution Status Back pain acuteChronic anticoagulationacuteCompression fractureacuteDepressionacute Frequent fallsacuteImpaired mobility and ADLsacuteParkinsons diseaseacuteUrinary tract infectionacuteAnemiaacuteBack painacuteChronic anticoagulationacute Compression fractureacuteDepressionacuteDiabetesacuteGERD (gastroesophageal reflux disease)acuteHyperlipidemiaacuteHypertensionacuteHypothyroidacuteImpaired mobility and ADLsacuteParkinsons diseaseacuteUrinary tract infectionacute [facility] Work Phone: Evaluation note* Diagnosis Parkinson's disease (HCC) Paralysis agitans documented in this encounter [facility]* Diagnosis Parkinson's disease (HCC)- Primary Paralysis agitans Depression with anxiety Dysthymic disorder [facility] Diagnosis Parkinson's disease without dyskinesia, with fluctuating manifestations- Primary Depression with anxiety Dysthymic disorder documented in this encounter [facility]* Diagnosis Parkinson's disease Paralysis agitans documented in this encounter [facility]* Diagnosis Depression with anxiety- Primary Dysthymic disorder Parkinson's disease without dyskinesia, with fluctuating manifestations (HCC) Sialorrhea Disturbance of salivary secretion documented in this encounter [facility]* Diagnosis Injury of head, initial encounter- Primary Parkinson's disease without dyskinesia, with fluctuating manifestations (HCC) Depression with anxiety Dysthymic disorder documented in this encounter [facility]* Diagnosis Onychomycosis- Primary Dermatophytosis of nail Pain in both feet Type II diabetes mellitus with neurological manifestations (CMS/HCC) Type II or unspecified type diabetes mellitus with neurological manifestations, not stated as uncontrolled Neuropathy Mononeuritis of unspecified site documented in this encounter [facility]* Diagnosis Morbid obesity (CMS/HCC)- Primary Morbid obesity Type 2 diabetes mellitus with other specified complication, without long-term current use of insulin (CMS/HCC) Parkinson's disease without dyskinesia or fluctuating manifestations (CMS/HCC) Frequent falls Acquired hypothyroidism (CMS/HCC) Unspecified hypothyroidism Type 2 diabetes mellitus with hyperglycemia (CMS/HCC) Immunodeficiency due to conditions classified elsewhere ([facility]) documented in this encounter [facility] HealthcareEvaluation note* Diagnosis NO SHOW- Primary documented in this encounter [facility]* Diagnosis Parkinson's disease without dyskinesia or fluctuating manifestations (CMS/HCC)- Primary Type 2 diabetes mellitus with other specified complication, 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 (CMS/HCC) GER[place]IA (obstructive sleep apnea) Obstructive sleep apnea (adult) (pediatric) 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 Vaginal yeast infection Candidiasis of vulva and vagina Vitamin D deficiency Vitamin B12 deficiency Other B-complex deficiencies Need for vaccination with 20-polyvalent pneumococcal conjugate vaccine documented in this encounter [facility] note* Diagnosis Vaginal yeast infection Candidiasis of vulva and vagina documented in this encounter [facility] HealthcareEvaluation note* Diagnosis Onychomycosis- Primary Dermatophytosis of nail Pain in both feet Type II diabetes mellitus with neurological manifestations (CMS/HCC) Type II or unspecified type diabetes mellitus with neurological manifestations, not stated as uncontrolled Neuropathy Mononeuritis of unspecified site Hammer toes of both feet documented in this encounter [facility] Healthcare[facility] note* Diagnosis Vaginal yeast infection- Primary Candidiasis of vulva and vagina Atrophic vaginitis Postmenopausal atrophic vaginitis Diabetic peripheral neuropathy associated with type 2 diabetes mellitus (CMS/HCC) documented in this encounter [facility] HealthcareEvaluation note* Diagnosis GER[place]IA (obstructive sleep apnea)- Primary Obstructive sleep apnea (adult) (pediatric) Inadequate sleep hygiene Other specific disorder of sleep of nonorganic origin Hypersomnia Hypersomnia, unspecified Snoring Other dyspnea and respiratory abnormality Anxiety Anxiety state, unspecified Depression, unspecified depression type (CMS/HCC) Memory loss documented in this encounter [facility] HealthcareEvaluation note* Diagnosis Depression with anxiety- Primary Dysthymic disorder Parkinson's disease without dyskinesia, with fluctuating manifestations ([facility]) documented in this encounter [facility]* Diagnosis Type II diabetes mellitus with neurological manifestations ([facility])- Primary Type II or unspecified type diabetes mellitus with neurological manifestations, not stated as uncontrolled Neuropathy Mononeuritis of unspecified site Hammer toes of both feet Onychomycosis Dermatophytosis of nail Pain in both feet Tinea pedis of both feet documented in this encounter [facility] HealthcareEvaluation note* Diagnosis Other seborrheic dermatitis- Primary Lentigines Seborrheic keratosis Capillary angioma Nevus, non-neoplastic [facility] Narrative - Reported* Type Description Date Medical History diabetes mellitus Medical Historycoronary artery diseaseMedical HistoryHypothyroidismMedical HistoryEsophageal refluxMedical HistorydepressionMedical Historyessential tremor Surgical HistorytonsillectomySurgical HistorycholecystectomySurgical History appendectomySurgical HistoryhemorrhoidectomySurgical HistorycolonoscopySurgical Historyheart catheterizationHospitalization Historysee above [facility] Other History general Narrative - ReportedNortSuburban Community Hospital [facility] Other Progress note Author Enrrique Mota [facility] November 06, 2021 7:31amNote Date/TimeAugust 2021 3:01pm[place] [address] Hospitalist Progress Note Signed Patient: Alton Barker MR#: [id number] : 1940 Acct:[id number] Age/Sex: 81 / F Adm Date: 2 Loc: Room: 7P9262-0 Type: ADM INOo Attending Dr: Enrrique Mota MD Copies to: ~ Date of Service: 11/05/2021 Subjective Subjective Narrative: Patient seen and examined, sitting up in chair at time of exam. She is pleasant, mildly confused. She is oriented to self, knows she is at [facility]. Initially states year is 1921, then corrects [...] where she lives with her son and xahfpsii-wp-jcn Impaired mobility and ADLs Parkinson's disease ? Patient follows with neurology, Dr. Lal, and movement disorder specialist,Gloria Lal, ELDON,at [facility] ? Continue Sinemet ? PT/OT eval's [...] <Electronically signed by Enrrique Mota MD> 11/06/21 0778 [facility] Work Phone: Progress note Author Enrrique Mota [facility] November 07, 2021 4:52pmNote Date/TimeAugust 2021 11:01[place] [address] Hospitalist Progress Note Signed Patient: Alton Barker MR#: [id number] : 1940 Acct:[id number] Age/Sex: 81 / F Adm Date: 2 Loc: Room: [address] [place] [address] Type: ADM INOo Attending Dr: Enrrique Mota MD Copies to: ~ Date of Service: 11/06/2021 Subjective Subjective Narrative: Patient is seen and examined. She is sitting up in bed at time of exam. When asked how she is feeling, she states not well, I am confused . She has howeveroriented to self, knows she is at [facility], and was able to tell me events surrounding her admission. She showed me a paper with fdc facilities listed on it, and indicated that [...] where she lives with her son and wzcsdthh-rw-tug Impaired mobility and ADLs Parkinson's disease ? Patient follows with neurology, Dr. Lla, and movement disorder specialist,Gloria Lal, MOLD CARRIER,at [facility] ? Continue Sinemet ? PT/OT recommending [...] <Electronically signed by Enrrique Mota MD> 11/07/[address] [place] [address] Work Phone: Progress note Author Enrrique Mota [facility] November 07, 2021 4:47pmNote Date/TimeAugust 2021 11:18[place] [address] Hospitalist Progress Note Signed Patient: Alton Barker MR#: [id number] : 1940 Acct:[id number] Age/Sex: 81 / F Adm Date: 2 Loc: Room: [address] [place] [address] Type: ADM INOo Attending Dr: Enrrique Mota [...] where she lives with her son and imtyxaje-pf-rwo Impaired mobility and ADLs Parkinson's disease ? Patient follows with neurology, Dr. Lal, and movement disorder specialist,Gloria Lal, ELDON,at [facility] ? Continue Sinemet ? PT/OT recommending [...] signed by Enrrique Mota MD> 11/07/21 1647 [facility] Work Phone: Progress note Author Enrrique Mota [facility] November 08, 2021 5:13pmNote Date/TimeAugust 2021 10:47[place] [id number] Hospitalist Progress Note Signed Patient: Alton Barker MR#: [id number] : 1940 Acct:[id number] Age/Sex: 81 / F Adm Date: 2 Loc: 3T Room: [address] [place] [address] Type: ADM INOo Attending Dr: Enrrique Mota [...] Tablet PO 11/04/22 21:59 1.5 tab TID KYALIN Administration Ceftriaxone Sodium 1 gm in 50 [...] where she lives with her son and esqnxxft-od-qqt Impaired mobility and ADLs Parkinson's disease ? Patient follows with neurology, Dr. Lal, and movement disorder specialist,Gloria Lal, MOLD CARRIER,at [facility] ? Continue Sinemet ? PT/OT recommending [...] <Electronically signed by Enrrique Mota MD> 11/08/21 9057 [facility] Work Phone: Progress note Author Gaye Claire [facility] November 10, 2021 4:37pmNote Date/TimeAugust 2021 1:11pm[place] [address] Hospitalist Progress Note Signed Patient: Alton Barker MR#: [id number] : 1940 Acct:[id number] Age/Sex: 81 / F Adm Date: 2 Loc: Room: 8B7118-3 Type: ADM INOo Attending Dr: Gaye Claire [...] movement disorder specialist, Gloria Lal CNP at [facility] ?Continue Sinemet UTI Ecoli [...] signed by Gaye Claire MD> 11/10/21 1637 [facility] Work Phone: Progress note Author Gaye Claire [facility] November 11, 2021 5:21pmNote Date/TimeAugust 2021 5:36pm[place] [address] Hospitalist Progress Note Signed Patient: Alton Barker MR#: [id number] : 1940 Acct:[id number] Age/Sex: 81 / F Adm Date: 2 Loc: Room: [address] [place] [address] Type: DIS INOo Attending Dr: Gaye Claire [...] Lal, and movement disorder specialist, Gloria Lal MOLD CARRIER at [facility] ?Continue Sinemet UTI Ecoli ?ceftriaxone initiated 11/06, change to Cefdinir at [place] for 7 day total course last dose 11/12 Depression ?Psychiatry evaluated. Remeron and Effexor initiated Chronic conditions 1. Hypothyroidism?levothyroxine 2. GERD?omeprazole 3. T2DM?metformin 4. hx DVT?Coumadin, pharmacy to dose, trend INR. INR was supratherapeutic on admit 5. Dyslipidemia?atorvastatin 6. Hypertension?metoprolol, BPs reviewed and controlled Documented By: Tonya Suh, ANP- 2 1736 Signed By: <Electronically signed by ANP-CHEN Suh> 11/10/21 1757 <Electronically signed by Gaye Claire MD> 11/11/21 1721 [facility] Work Phone: Reason for referral (narrative)* Outpatient Procedure (Routine) - Pending ReviewSpecialtyDiagnoses / ProceduresReferred By Contact Referred To ContactNE[facility]OLOGICAL INSTITUTE Diagnoses Recurrent episodes of unresponsiveness Procedures EPIL EEG ROUTINE ELECTROENCEPHALOGRAM REC COMA/SLEEP ONLY Gloria Perez APRN.MOLD CARRIER [address] [place] [address] [facility] [address] [place] [id number] Referral IDStatusReasonStart DateExpiration DateVisits RequestedVisits [id number] Review Auto-Generated Referral [facility] Summary Purpose Family History Relationship Condition [...] Procedures PROVIDER ORDERED FOLLOW UP OFFICE/OUTPATIENT [facility] 60 MINUTES Gloria Perez, HEIDI.MOLD CARRIER [address] [place] [address] Referral IDStatusReasonStart DateExpiration DateVisits RequestedVisits [id number] PCP Requested Referral /[id number] / ProceduresReferred By ContactReferred To ContactCT IMAGING Diagnoses Injury of head, initial encounter Procedures CT BRAIN WO IVCON CT HEAD/BRAIN W/O CONTRAST MATERIAL Gloria Perez, HEIDI.MOLD CARRIER [address] [place] [address] Ct Imaging [place] [address] Referral IDStatusReasonStwest liberty DateExpiration DateVisits RequestedVisits [id number] Review Auto-Generated Referral /[id number] / ProceduresReferred By ContactReferred To Contact Diagnoses Parkinson's disease (HCC) Procedures PROVIDER ORDERED FOLLOW UP OFFICE/OUTPATIENT [facility] 60-74 MINUTES Gloria Perez, MICHELLE [address] [place] [address] Referral IDStatusReasonStart DateExpiration DateVisits RequestedVisits [id number] Review PCP Requested Referral Additional Source Comments INFORMATION SOURCE (unrecogn ized section and content) DATE CREATED AUTHOR 11/02/2017 [facility] DATE CREATED AUTHOR AUTHOR'S ORGANIZ ATION 09/09/2021 [facility] Neighborhood Coordinator DATE CREATED AUTHOR AUTHOR'S ORGANIZ ATION 07/23/2022 [facility] DATE CREATED AUTHOR AUTHOR'S ORGANIZ ATION 03/01/2024 [facility] DATE CREATED AUTHOR AUTHOR'S ORGANIZ ATION 03/12/2024 [facility] DATE CREATED AUTHOR AUTHOR'S ORGANIZ ATION 03/24/2024 [facility] DATE CREATED AUTHOR AUTHOR'S ORGANIZ ATION 09/29/2024 [facility] DATE CREATED AUTHOR AUTHOR'S ORGANIZ ATION 10/07/2024 [facility] Goals (unrecognized section and content) Goals may [...] up. Patient in hospital.ReasonCommentsPatient UpdateReason Onset DateCommentsRefill Vhztzxx2404/13/2022ReasonCommentsParkinson's Disease SpecialtyDiagnoses / ProceduresReferred By ContactReferred To Contact Diagnoses Parkinson's disease Procedures PROVIDER ORDERED FOLLOW UP OFFICE/OUTPATIENT [facility] 60-74 MINUTES Gloria Perez, EDUCATION REP.MOLD CARRIER [address] [address] Referral IDStatusReasonStart DateExpiration DateVisits RequestedVisits [id number] Review PCP Requested Referral [id number] ProblemReasonCommentsParkinson's DiseaseFollow UpReasonCommentsParkinson's DiseaseFollow UpReasonComments3 Month Follow UpReasonOnset DateCommentsOT Initial Eval14ReasonOnset Date CommentsNo Show02/24/2024No showReasonComments3 month follow upReasonOnset Date CommentsMed [id number] hanging out of vaginaReason CommentsSleep ApneaReasonOnset DateCommentsre: OT Eval set-up03/05/2024Specialty Diagnoses / ProceduresReferred By ContactReferred To Contact Diagnoses Parkinson's disease without dyskinesia, with fluctuating manifestations (HCC) Procedures PROVIDER ORDERED FOLLOW UP OFFICE/OUTPATIENT [facility] 60 MINUTES Gloria Perez, HEIDI.MOLD CARRIER [address] [place] [address] Referral IDStatusReasonStart DateExpiration DateVisits RequestedVisits [id number] PCP Requested Referral [id number] Check Source Comments (unrecognize d section and content) In the event this informatio n is protected by the Federal Confidentiality of Alcohol and Drug Abuse Patient Records regulations: The Federal rules restrict any use of the information to criminally investigate or prosecute any alcohol or drug abuse patient.[facility] HospitalIn the event this information is protected by the Federal Confidentiality of Alcohol and Drug Abuse Patient Records regulations: The Federal rules restrict any use of the information to criminally investigate or prosecute any alcohol or drug abuse patient.[facility] HospitalIn the event this information is protected by the Federal Confidentiality of Alcohol and Drug Abuse Patient Records regulations: The Federal rules restrict any use of the information to criminally investigate or prosecute any alcohol or drug abuse patient.[facility] HospitalIn the event this information is protected by the Federal Confidentiality of Alcohol and Drug Abuse Patient Records regulations: The Federal rules restrict any use of the information to criminally investigate or prosecute any alcohol or drug abuse patient.[facility] HospitalIn the event this information is protected by the Federal Confidentiality of Alcohol and Drug Abuse Patient Records regulations: The Federal rules restrict any use of the information to criminally investigate or prosecute any alcohol or drug abuse patient.[facility] HospitalIn the event this information is protected by the Federal Confidentiality of Alcohol and Drug Abuse Patient Records regulations: The Federal rules restrict any use of the information to criminally investigate or prosecute any alcohol or drug abuse patient.[facility] HospitalIn the event this information is protected by the Federal Confidentiality of Alcohol and Drug Abuse Patient Records regulations: The Federal rules restrict any use of the information to criminally investigate or prosecute any alcohol or drug abuse patient.[facility] HospitalIn the event this information is protected by the Federal Confidentiality of Alcohol and Drug Abuse Patient Records regulations: The Federal rules restrict any use of the information to criminally investigate or prosecute any alcohol or drug abuse patient.[facility] HospitalIn the event this information is protected by the Federal Confidentiality of Alcohol and Drug Abuse Patient Records regulations: The Federal rules restrict any use of the information to criminally investigate or prosecute any alcohol or drug abuse patient.[facility] HospitalIn the event this information is protected by the Federal Confidentiality of Alcohol and Drug Abuse Patient Records regulations: The Federal rules restrict any use of the information to criminally investigate or prosecute any alcohol or drug abuse patient.[facility] HospitalIn the event this information is protected by the Federal Confidentiality of Alcohol and Drug Abuse Patient Records regulations: The Federal rules restrict any use of the information to criminally investigate or prosecute any alcohol or drug abuse patient.[facility] HospitalIn the event this information is protected by the Federal Confidentiality of Alcohol and Drug Abuse Patient Records regulations: The Federal rules restrict any use of the information to criminally investigate or prosecute any alcohol or drug abuse patient.[facility] HospitalIn the event this information is protected by the Federal Confidentiality of Alcohol and Drug Abuse Patient Records regulations: The Federal rules restrict any use of the information to criminally investigate or prosecute any alcohol or drug abuse patient.[facility] HospitalIn the event this information is protected by the Federal Confidentiality of Alcohol and Drug Abuse Patient Records regulations: The Federal rules restrict any use of the information to criminally investigate or prosecute any alcohol or drug abuse patient.[facility] Care Teams (unrecognized sec tion and [...] RNOther ProviderActiveKaren Smith RNOther ProviderActiveMoyo Ayon RNOther ProviderActiveRagalo Villatoro MD Other ProviderActiveAnalj Ziegler MDOther ProviderActiveLisa Mitch Dials , EDUCATION REP Other ProviderActiveRonobidiana Tellez , DOOther ProviderActiveMusarianna Chan MD Other ProviderActiveJustice De Oliveira , DOOther ProviderActiveEnrrique Mota MDOther ProviderActiveRosa Maria Odell MDOther ProviderActiveLysherin Suh , ANP-BCOther ProviderActiveJuan Wallace MDOther ProviderActiveJerson Walker MDOther ProviderActiveGaye Claire MDOther ProviderActiveQueta Mclain MD Other ProviderActiveThomas Zainab Blackmon MDOther ProviderActiveFirlowell Gallagher MDOther ProviderActiveDamion Thapa MDOther ProviderActiveFaustina Barr , FILM SOUND COORDINATOR-COther ProviderActiveValente Lauren MDOther ProviderActiveKareem Elizondo MD Other ProviderActiveItalia Colbert MDOther ProviderActiveRonan Davidson MDOther ProviderActiveMarlisbeth Nayak , DOOther ProviderActiveHanroro Mooney MD Other ProviderActiveNeal R Eliane , DOOther ProviderActiveAnthony Mitch Miniaci , DOOther ProviderActiveLinda Obika , APRNOther ProviderActiveLázaro Pratt , Other ProviderActiveCorona Weathers MDOther ProviderActiveLee Ann Terry , KORTNEY Other ProviderActive Team Status: Inactive Member Role Status Dates Honey Rabago DO Primary Care Provider Active Marvin Peter , DOEmergency ProviderActiveEnrrique Mota , MDAdmit Provider ActiveJairo Benson MDOther ProviderActiveOswaldo Almonte MDOther Provider ActiveIwona Collado ProviderActiveTeam MemberRelationshipSpecialty Start DateEnd Date Honey Rabago, DO [address] [place] [address] [facility] Uamqxzp16/6/05Team MemberRelationshipSpecialtyStart DateEnd Date Honey Rabago, DO [address] [place] [address] PCP Twiibbl70/6/05Team MemberRelationshipSpecialtyStart DateEnd Date Honey Rabago, DO [address] [place] [address] PCP Gghcwhj68/6/05 Team Status: Active Member Role Status Dates Honey DO Hima Primary Care Provider Active Alcides Moya MDAkayy Provider, Attending ProviderActiveMaggy Mehta , KORTNEY Other ProviderActiveSasha Hannah , RNOther ProviderActiveNadia Dutton , RN Other ProviderActiveAnuradha Garrett , RNOther ProviderActiveKaren Smith , RNOther ProviderActiveErika Ayon , KORTNEYOther ProviderActiveFamilia Villatoro MD Other ProviderActiveAnalj Ziegler MDOther ProviderActiveChery Coronado , EDUCATION REP Other ProviderActiveRonstephon Tellez , DOOther ProviderActiveMusarianna Chan MD Other ProviderActiveJustice De Oliveira , DOOther ProviderActiveEnrrique Mota MDOther ProviderActiveRosa Maria Odell MDOther ProviderActiveLysherin Suh , ANP-BCOther ProviderActiveJuan Wallace MDOther ProviderActiveJerson Walker MDOther ProviderActiveGaye Claire MDOther ProviderActiveQueta Mclain MD Other ProviderActiveThomas Zainab Blackmon MDOther ProviderActiveAnibal Gallagher MDOther ProviderActiveEarrenee Thapa MDOther ProviderActiveAmy J Waldwick , FILM SOUND COORDINATOR-COther ProviderActiveValente Lauren MDOther ProviderActiveKareem Elizondo MD Other ProviderActiveItalia Colbert MDOther ProviderActiveRonan Davidson MDOther ProviderActiveMarlisbeth Nayak , DOOther ProviderActiveHani Frank Mooney MD Other ProviderActiveNeal R Eliane , DOOther ProviderActiveAnthony M Miniaci , DOOther ProviderActiveLinda Obika , APRNOther ProviderActiveLázaro Pratt , DO Other ProviderActiveObaangela Weathers MDOther ProviderActiveLee Ann Terry RN Other ProviderActive Team Status: Inactive Member Role Status Dates Honey Rabago DO Primary Care Provider Active Alton Valderrama DOEmergency ProviderActive Team Status: Inactive Member Role Status Dates Holger Dorado DO Emergency Provider Active Bhupendra Izaguirre ProviderActive Team Status: Active Member Role Status Dates Honey Rabago DO Primary Care Provider, Attending Paula mock Active Team MemberRelationshipSpecialtyStart DateEnd Date Honey Rabago, DO [address] [place] [address] PCP - Eulkbma16/6/05Team MemberRelationshipSpecialtyStart DateEnd Date Honey Rabago, DO [address] [place] [address] PCP - Yqnmzjc45/6/05Team MemberRelationshipSpecialtyStart DateEnd Date Honey Rabago, DO [address] [place] [address] PCP - Rbptvyr27/6/05Team MemberRelationshipSpecialtyStart DateEnd Date Honey Rabago, DO [address] [place] [address] PCP - Drbbjms53/6/05Team MemberRelationshipSpecialtyStart DateEnd Date Honey Rabago DO [address] [place] [address] PCP - Kcvtjup04/05Team MemberRelationshipSpecialtyStart DateEnd Date Honey Rabago DO [address] [place] [address] PCP - Fayvebt20/6/05Team MemberRelationshipSpecialtyStart DateEnd Date Honey Rabago DO PCP - GeneralInternal Medicine07/28/22Team MemberRelationshipSpecialtyStart Date End Date Honey Rabago DO [address] [place] [address] PCP - Gvimtbd67/6/05Team MemberRelationshipSpecialtyStart DateEnd Date Honey Rabago DO [address] [place] [address] PCP - Tcxfyjl58/6/05Team MemberRelationshipSpecialtyStart DateEnd Date Honey Rabago DO [address] [place] [address] PCP - GeneralInternal Medicine05/04/23 Juani Martinez MD [address] [facility] [place] [address] Referring PhysicianPulmonary Disease07/29/23Team MemberRelationshipSpecialtyStart DateEnd Date Honey Rabago DO [address] [place] [address] PCP - GeneralInternal Medicine05/04/23 Juani Martinez MD [address] [place] [address] Referring PhysicianPulmonary Disease07/29/23Team MemberRelationshipSpecialtyStart DateEnd Date Honey Rabago, [address] [place] [address] PCP - Jjfpzrq52/6/05Team MemberRelationshipSpecialtyStart DateEnd Date Honey Rabago DO [address] [place] [address] PCP - GeneralInternal Medicine05/04/23 Juani Martinez MD [address] [facility] [place] [address] Referring PhysicianPulmonary Disease07/29/23Team MemberRelationshipSpecialtyStart DateEnd Date Honey Rabago, [address] [place] [address] PCP - GeneralInternal Medicine05/04/23 Juani Martinez MD [address] [place] [place] [address] Referring PhysicianPulmonary Disease07/29/23Team MemberRelationshipSpecialtyStart DateEnd Date Honey Rabago DO [address] [facility] [address] [place] [address] PCP - Rkzfnvs70/6/05Team MemberRelationshipSpecialtyStart DateEnd Date Honey Rabago DO [address] [facility] [address] [place] [address] PCP - GeneralInternal Medicine05/04/23 Juani Martinez MD [address] [place] [address] Referring PhysicianPulmonary Disease07/29/23Team MemberRelationshipSpecialtyStart DateEnd Date Honey Rabago DO [address] [facility] [address] [place] [address] PCP - GeneralInternal Medicine05/04/23 Juani Martinez MD [address] [place] [address] Referring PhysicianPulmonary Disease07/29/23Team MemberRelationshipSpecialtyStart DateEnd Date Honey Rabago DO [address] [facility] [address] [place] [address] PCP - GeneralInternal Medicine05/04/23 Juani Martinez MD [address] [place] [address] Referring PhysicianPulmonary Disease07/29/23Team MemberRelationshipSpecialtyStart DateEnd Date Honey Rabago DO [address] [place] [address] PCP - GeneralInternal Medicine05/04/23 Juani Martinez MD [address] [facility] [place] [address] Referring PhysicianPulmonary Disease07/29/23Team MemberRelationshipSpecialtyStart DateEnd Date Honey Rabago DO [address] [place] [address] PCP - GeneralInternal Medicine05/04/23 Juani Martinez MD [address] [place] [address] Referring PhysicianPulmonary Disease07/29/23Team MemberRelationshipSpecialtyStart DateEnd Date Honey Rabago DO [address] [place] [address] PCP - Wfeelaf03/6/05 Team Status: Inactive Member Role Status Dates [...] Start: March 16, 2024 End: March 16, 2024DoIwona Cifuentes ProviderActiveStart: March 16, 2024 End: March 16, 2024Team MemberRelationshipSpecialtyStart DateEnd Date Honey Rabago DO [address] [facility] [address] [place] [address] PCP - GeneralInternal Medicine05/04/23 Juani Martinez MD [address] [place] [address] Referring PhysicianPulmonary Disease07/29/23Team MemberRelationshipSpecialtyStart DateEnd Date Vandana Orourke MD [address] [facility] [address] [place] [address] PCP - GeneralFamily Medicine05/10/24 Juani Martinez MD [address] [place] [address] Referring PhysicianPulmonary Disease07/29/23Team MemberRelationshipSpecialtyStart DateEnd Date Vandana Orourke MD [address] [facility] [address] [place] [address] PCP - GeneralFamily Medicine05/10/24 Juani Martinez MD [address] [place] [address] Referring PhysicianPulmonary Disease07/29/23Team MemberRelationshipSpecialtyStart DateEnd Date Vandana Orourke MD [address] [address] PCP - GeneralFamily Medicine05/10/24 Juani Martinez DO Referring PhysicianPulmonary Disease07/29/23Team MemberRelationshipSpecialtyStart DateEnd Date Vandana Orourke MD [address] [place] [address] [facility] - [facility]05/10/24 Juani Martinez DO Referring PhysicianPulmonary Disease07/29/23Team MemberRelationshipSpecialtyStart DateEnd Date Vandana Orourke MD [address] [facility] [address] [place] [address] PCP - [facility] Medicine05/10/24 Juani Martinez DO Referring PhysicianPulmonary Disease07/29/23Team MemberRelationshipSpecialtyStart DateEnd Date Honey Rabago, DO [address] [place] [address] PCP - [facility]King[facility]ern[facility]/ Vandana Orourke MD [address] [place] [address] [facility] - [facility]/10/24 Honey Rabago, [address] [place] [address] PCP - [facility]06/13/23 Juani Martinez DO [address] [place] [address] Referring PhysicianPulmonary Disease07/29/23Team MemberRelationshipSpecialtyStart DateEnd Date Honey Rabago, PCP - GeneralInternal Medicine Honey Rabago DO [address] [place] [address] PCP - GeneralInternal Medicine Honey Rabago, [address] [place] [address] PCP - [facility] Vandana Orourke MD [address] [place] [address] PCP - [facility] Medicine05/10/24 Honey Rabago, DO [address] [place] [address] [facility] - [facility] Juani Martinez DO [address] [place] [address] Referring PhysicianPulmonary Disease07/29/23 Leslie Cardoso MA Family MedicineTeam MemberRelationshipSpecialtyStart DateEnd Date Vandana Orourke MD [address] [place] [address] [facility] - [facility]05/10/24 Honey Rabago DO [address] [place] [address] PCP - Human06/13/23 Juani Martinez DO [address] [place] [address] Referring PhysicianPulmonary Disease07/29/23 FOR RECORDS PERTAINING TO PATIENTS WHO ARE [...] BE BASED ON THE PRIMARY CLINICAL RECORDS. [facility]. provides no warranty or guarantee of the accuracy or completeness of information in this document.
--- OUTSIDE RECORDS SUMMARY | 2025-01-28 02:32 | XMS_ITS | Continuity of Care Document ---
Author Organization [facility] Address [address] [place] [address] Care Team Providers Care Freight Brakeman Name Role Phone Vandana Orourke MD Attending Physician [phone] Medications Medication Frequency Instructions Diagnosis Start Date End Date Status Last Administered acetaminophen 500 mg tablet Once A Day - PRN 1000 mg, oral, Once A Day - PRN, PRN Pain U07.1 : 2019-nCoV acute respiratory disease 03/19/2024 Qpryuo3901/02/2025 07:57 AMaspirin 81 mg tablet,chewableOnce A Day81 mg, oral, Once A DayI25.10 : Atherosclerotic heart disease of [place] coronary artery without angina rsttmirf19/20/2881Tddoiv03/02/2025 08:10 AMatorvastatin 40 mg tabletOnce A Day40 mg, oral, Once A Day, previously taken with no side effects I25.10 : Atherosclerotic heart disease of [place] coronary artery without angina mdjfzlwu00/14/1090Jylxyy53/02/2025 08:19 PMcarbidopa-levodopa 25-100 mg tablet Three Times A Day1 tablet, oral, Three Times A DayG20.C : Parkinsonism, enirsvbzvyv46/07/3878Oyqvud23/02/2025 01:20 PMcarbidopa-levodopa 25-100 mg tabletOnce A Day1.5 tablets, oral, Once A DayG20.A2 : Parkinson's disease without dyskinesia, with qwsbgxicsnom21/07/1769Nnsefv48/02/2025 05:31 AM cholecalciferol (vitamin D3) 125 mcg (5,000 unit) capsuleOnce A Day5,000 units, oral, Once A DayE55.9 : Vitamin D deficiency, sigbqvelilj80/07/2025tive 01/13/2025 08:10 AMcyanocobalamin (vitamin B-12) 1,000 mcg tabletOnce A Day1,000 mcg, oral, Once A DayM62.81 : Muscle weakness (generalized)03/20/202401/13/2025 08:10 AMcyclobenzaprine 5 mg tabletThree Times A Day - PRN1 tab, oral, Three Times A Day - PRN, muscle spasms 10/05/20248869Ythhth89/25/2025 08:11 PMdiclofenac sodium 1 % gelTwice A Day - PRN2 gram, topical, Twice A Day - PRN, Apply to elbow, wrist and hand, including palm/fingers/back of handM19.90 : Unspecified osteoarthritis, unspecified site 03/20/20243752Mzrjrs03/13/2025 09:35 AMestradiol 0.01 % (0.1 mg/gram) creamAt Bedtime on Mon50 mcg, vaginal, At Bedtime on MonN76.0 : Acute vaginitis 04/06/20247514Bpbxuo81/27/2025 09:10 PMfluocinolone 0.01 % solutionOnce A Day - PRN1 application, topical, Once A Day - PRN, Apply to XknhnP65.9 : Seborrheic dermatitis, pbkwubhqaxj24/07/2025tiveketoconazole 2 % shampooOnce A Day on Mon, Wed, Fri - PRN1 application, topical, Once A Day on Mon, Tue, Fri - PRN L21.9 : Seborrheic dermatitis, grwkajfhzra09/07/2025tiveketoconazole 2 % cream As Needed1 application, topical, As Needed, apply thin layer to affected areas on face when flared, hold when clear.L21.9 : Seborrheic dermatitis, unspecified 5Activelevothyroxine 75 mcg tabletOnce A Day75 mcq, oral, Once A Day M19.90 : Unspecified osteoarthritis, unspecified site04/06/20240238Ncmrnk46/02/2025 04:07 AMlidocaine 4 % adhesive patch,medicatedOnce A Day - PRN1 patch, topical, Once A Day - PRN, flank pain 05/15/2024tivemelatonin 5 mg tabletAt Bedtime1 tab, oral, At Bedtime, insomnia 01/11/20252832Wnezrv43/02/2025 07:38 PMmetformin 500 mg tabletTwice A Viu168 mg, oral, Twice A DayE11.9 : Type 2 diabetes mellitus without complications 03/20/20245021Wqdzwn77/02/2025 08:19 PMmetoprolol tartrate 50 mg tabletTwice A Day50 mg, oral, Twice A DayI10 : Essential (primary) xtireqvezjeu54/07/202501/13/2025 08:19 PMmirabegron 50 mg tablet extended release 24 hrOnce A Day50 mg, oral, Once A DayR39.15 : Urgency of xaezuenjj70/07/4307Ogepos46/02/2025 08:10 AMMiralax (polyethylene glycol 3350) 17 gram/dose powderOnce A Day17 g, oral, Once A DayK21.9 : Gastro-esophageal reflux disease without esophagitis 03/20/20241562Xrbrpj36/02/2025 08:10 AMmirtazapine 7.5 mg tabletAt Bedtime7.5 mg, oral, At RhtvlsqS21.9 : Major depressive disorder, recurrent, unspecified 03/20/20246135Mnuqgc36/02/2025 08:19 PMMounjaro (tirzepatide) 5 mg/0.5 mL pen injectorOnce A Day on Sun5 mg, subcutaneous, Once A Day on SunE11.9 : Type 2 diabetes mellitus without zfefflqjdjjjl56/22/2688Wxtxtf72/02/2025 08:10 AM omeprazole 20 mg capsule,delayed release(DR/EC)Once A Day20 mg, oral, Once A Day K21.9 : Gastro-esophageal reflux disease without adcfezxgljx69/07/2025tive 01/13/2025 08:10 AMPreserVision AREDS-2 (vit c,b-gt-buqyw-lutein-zeaxan) 250-90-40-1 mg capsuleTwice A Day1 tablet, oral, Twice A DayH35.30 : Unspecified macular rhhuqozsbjeu10/07/1029Ghsicc96/02/2025 08:19 PMSystane (PF) (peg 400- propylene glycol (pf)) 0.4-0.3 % dropperetteFour Times A Dayone drop bilateral, ophthalmic (eye), Four Times A DayH35.30 : Unspecified macular degeneration 10/17/20242696Wechmk63/02/2025 08:19 PMvenlafaxine 75 mg tabletOnce A Day75 mg, oral, Once A DayF33.9 : Major depressive disorder, recurrent, unspecified 03/20/20243899Nbpcsr59/02/2025 08:10 AMvenlafaxine 150 mg capsule,extended release 24hrOnce A Day1 cap, oral, Once A DayF33.9 : Major depressive disorder, recurrent, yrmfvhixxyk36/07/8230Kkfote57/02/2025 08:10 AMwarfarin 2 mg tabletAt Bedtime1 tablet, oral, At PulwirsT59.2 : Venous insufficiency (chronic) (peripheral)12/18/20245377Ecngow75/02/2025 07:38 PMEnemeez (docusate sodium) 283 mg/5 mL enemaOnce A Day - PRN1 enema, rectal, Once A Day - PRN, Step 3: If no BM by morning of day 4, administer 1 Enemeez MicroEnema in the morning. Indication for use: Constipation Step 4: If no BM within 1 hour of administering Enemeez, contact provider. /Not ActiveMiralax (polyethylene glycol 3350) 17 gram/dose powderOnce A Day - XZO58va (1 capful), oral, Once A Day - PRN, Step 1: If no BM by Day 2, Mix 17gm (1 capful) in 4-8oz beverage of choice in the morning. Indication for use: Constipation Not ActiveMiralax (polyethylene glycol 3350) 17 gram/dose powderOnce A Day - GRX35ut (1 Capful), oral, Once A Day - PRN, Step 2: If no BM by Day 3, Give 17gm (1 Capful) in 4-8 ounces of beverage of choice. Indication for use: Constipation /Not ActiveMnexspike (PF) (covid vac 25- 26(12up)(mod)(pf)) 10 mcg/0.2 mL syringeOnce - One Time0.2ml, intramuscular, Once - One Time Not Qgvihk4501/07/2025 01:53 PMwarfarin 3 mg tabletAt Bedtime 1.5 mg, oral, At CfgtmrwJ88.01 : longterm (current) use of anticoagulants Not Eefxnj6612/17/2024 08:55 PM Problems Code Type Problem ICD Code Effective Date Status ICD-10 Parkinson's disease without dyskinesia, with fluctuations G20.A2 09/02/2023 Active ICD-10 Type 2 diabetes garth itus without complications E11.9 03/17/2024 Active ICD-10 Obesity, unspecified E66.9 03/17/2024 Acti ve ICD-10 Benign neoplasm of e ndocrine gland, 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 03/16/2024 Active ICD-10 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 03/16/2024 Active ICD-10 Vitamin D deficiency, unspecified E55.9 Active ICD-10 Anemia, unspecified D64.9 03/17/2024 Activ e ICD-10 Major depressive dis order, recurrent, unspecified F33.9 03/16/2024 Active ICD-10 Hyperlipidemia, unspecified E78.5 03/17/19 Active ICD-10 Sleep apnea, unspecified G47.30 03/17/2024 Active ICD-10 Unspecified macular degeneration H35.30 06/2024 Active ICD-10 Parkinsonism, unspecified G20.C 12/08/2023 Active ICD-10 Essential (primary) hypertension I10 06/2024 Active ICD-10 Venous insufficiency (chronic) (peripheral) I87 .2 03/17/2024 Active ICD-10 Gastro-esophageal re flux disease without esophagitis K21.9 03/16/2024 Active ICD-10 Atherosclerotic hear t disease of [place] coronary artery without angina pectoris I25.10 03/17/2024 Active ICD-10 Seborrheic dermatitis, unspecified L21.9 0 03/17/2024 Active ICD-10 Unspecified osteoarthritis, unspecified site M1 9.90 03/17/2024 Active ICD-10 Collapsed vertebra, not elsewhere classified, site unspecified, subsequent encounter for fracture with routine healing M48.50XD 03/16/2024 Active ICD-10 Occipital neuralgia M54.81 03/16/2024 Activ e ICD-10 Acute vaginitis N76.0 03/16/2024 Active ICD-10 Unsteadiness on feet R26.81 03/16/2024 Acti ve ICD-10 Urgency of urination R39.15 03/16/2024 Acti ve ICD-10 Limitation of activities due to disability Z73. 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) use of anticoagulants Z79.0 1 10/06/2024 Active ICD-10 Cognitive communication deficit R41.841 05/2024 Active ICD-10 Primary insomnia F51.01 01/11/2025 Active ICD-10 Other abnormalities of gait and mobility R26.89 12/12/2024 Active ICD-10 2019-nCoV acute respiratory disease U07.1 03/16/2024 Active Current Allergies and Intolerances Category Substance Type Reaction Severity Begin Date Status Drug allergy atorvastatin Allergy 5ActiveDrug allergyhydrocodoneAllergy 5ActiveAllergy to substanceLatexAllergy 5Active Vital Signs Height: 66.0 in Date / Time Temperature Pulse (per minute) Respirations (per minute) Systolic BP (mmHg) Diastolic BP (mmHg) O2 Saturation (%) Weight BMI 01/07/2025 01:51 PM 97.4 F 12/16/2024 03:12 AM97.6 F 12/15/2024 02:52 PM97.6 F 12/15/2024 08:47 AM97.8 F 12/14/2024 11:28 PM98.1 F 12/14/2024 04:26 PM98.2 F 12/14/2024 09:25 AM98.0 F 12/14/2024 12:57 AM97.7 F 12/13/2024 05:11 PM97.3 F 12/13/2024 08:40 AM98.0 F 12/12/2024 02:38 PM 241.5 lbs38.9712/11/2024 11:34 PM 241.5 lbs38.9709 08:48 AM 234.0 lbs37.7609 04:48 PM [id number] 10/18/2024 02:19 PM 233.0 lbs37.608 04:49 PM [id number] 09/16/2024 01:22 PM [id number] 08/12/2024 06:56 PM [id number] 07/17/2024 12:57 AM [id number] 06/22/2024 07:46 AM [id number] 06/21/2024 11:48 AM [id number] 06/21/2024 01:00 AM [id number] 06/20/2024 06:03 PM [id number] 06/20/2024 07:44 AM [id number] 06/20/2024 01:26 AM 97.0 Advance Directives Directive Note Do Not Resuscitate (DNRCCA) Insurance Providers Payer Policy type Group Name Group number Policy ID Address Ph one Medicare A Medicare Part A [id number]: Fax:Humana Part BLike Medicare Part B [id number]: Fax:Vaccinations - HUMANALike Medicare Part B [id number] [address] [place] [address] Fax:OutPatient Ins Part B - HUMANALike Medicare Part B [id number].O[address] [address] [place] [address] Fax:Medicaid [place] PendingMedicaid ([facility] [id number]: [place]ax:[place] [id number]: Fax:Managed Coins MedicaidMedicaid ([facility]) [id number]: Fax:Managed Coins PrivatePrivate Phone: Fax:Resident ResourcePrivate Phone: Fax:Private PayPrivate Phone: Fax:Private Pay MADAI DENYPrivate Phone: Fax: Immunizations Vaccine Stores Laborer Date Status Dose Series Complete COVID-19 Vaccine Moderna [id number] 01/07/2025 Completed 1 COVID-19 LcesqixLgurjzz34/09/2021Completed COVID-19 PqnfnygDnkxjuo98/0366Bcwbyblvk1 COVID-19 NeqbdljQhjdpzx88/02/1333Wzgruhjzj6 COVID-19 Vaccine 06/14/2024Refused COVID-19 Vaccine 03/26/2024Refused Influenza VaccineSanofi Othkrhs35/01/2025Completed Influenza Vaccine 4Completed Pneumococcal Vaccine 4Completed RSV Vaccine 03/26/2024Refused Procedures Not available for this record Results Not available for this record Goals Goal Date Resident will maintain their highest level of cognition throughout disease process through next review 02/21/2025 Resident will maintain current adl's 01/2025 Resident will participate in leave of absence (CHRIS) with family/friends and follow facility CHRIS rules through next review. 02/21/2025 Resident will have no indica tions of psychosocial well- being problem by/ through review date 02/21/[address] in corridor 100ft wit h FWW and 1 assist 02/21/2025 Resident will see (printed m aterial, television, self-care items, faces, etc.)./Resident will not have unrecognized declines in visual impairment. 02/21/2025 The resident will have no co mplications related to diabetes through the review date 02/21/2025 The resident will be free fr om s/s of complications of cardiac problems through the review date. 02/21/2025 Resident will have adequate blood flow to extremity as evidenced by presence of peripheral pulses, sensation, motion, and warmth to extremity. Skin to extremity will remain intact. 02/21/2025 Resident will not exhibit si gns of activity intolerance (fatigue, shortness of breath, pallor or cyanosis, vertigo, weakness, etc.). 02/21/2025 Resident will return to appropriate, saf e placement once stable 02/21/2025 Resident will have an effective respirat ory rate, depth, and rhythm. 02/21/2025 The resident will remain velma e of further s/sx, discomfort or complications related to Parkinson's disease through review date 02/21/2025 Resident will maintain psych osocial well being in long term setting AEB: resident will accept care daily, positive expressions, positive body language thru next review 02/21/2025 Resident will maintain psych osocial well being in long term setting AEB: resident will accept care daily, positive expressions, positive body language thru next review 02/21/2025 Resident will develop effective coping s trategies to help adapt to pain. 02/21/2025 1. Will be free of significa nt weight changes q month 5% +/- per nursing/grand rounds, weight reports 02/21/2025 2. Will be free of s/s dehyd ration, fluid overload, electrolyte imbalance through next review 02/21/2025 Resident's skin will remain intact. 02/11 Resident will remain free from injury. 1 04/24/2024 Resident will have continenc e episodes of bowel and bladder daily thru next review 02/21/2025 Resident will have no active bleeding. 1 04/24/2024 Resident will not exhibit si gns of drug related: sedation, hypotension, or anticholinergic symptoms. 02/21/2025 Resident will have BM at least < every 3 days specify > until next review 02/21/2025 Resident's code status decis ion will be honored daily through next review date 02/21/2025 Resident will not exhibit boredom/isolat ion as evidenced by: ___. 02/21/2025 Resident will state feeling rested. 03/16 Encounters Admission Date Discharge Date Description MRN Visit Count 03/19/2024 12:45 LTPAC [id number]
--- OUTSIDE RECORDS SUMMARY | 2025-01-28 02:33 | XMS_ITS | Continuity of Care Document ---
Author Organization [facility] Address [address] [place] [address] Insurance Providers Payer Plan Claims Address Claims Phone Policy Number Group Number Relation Employer Guarantor Name Guarantor Guarantor Address Guarantor Phone [address], [place] [address]ysg:[phone] A. CLARK [address] [id number] MEDICARE ADV [address], [place] [address]tmz:[phone] A. CLARK [address] [id number] MEDICARE[address] [address], [place] [address]wrp:[phone] A. CLARK [address] [address] Problems Condition ICD9 code ICD10 code SNOMED code Start Date End Date S tatus Dysphagia, oral phase R13.1101/5ActiveCognitive communication yezvtteF80.380315Active Urinary tract infection, site not rpfxxzfgdE53.0015ActiveDifficulty in walking, not elsewhere eugzgexnqcL39.5ActiveDysphagia, oropharyngeal olikjX67.12025ActiveLong term (current) use of alnvrbtripwqpcQ43.01 5ActiveEncounter for ctqnebfaoxybW10425ActiveOther abnormalities of gait and ggbcfyhxO64.89105ActivePrimary fnuqnkgqM82.01105Active PkipyoO52.011/5ActivePneumonia, unspecified sqbbumeeR66.915Active Other speech lntctsipuvbbN31.895Active Results Test Result Date/Time Value / Unit Interp. Refere nce Range Blood chemistry[[id number]] Glucose [Mass/volume] in Serum or Plasma [2345-7] 01/27/2025 02:52 PM 179 mg/dL N Blood chemistry[[id number]]?Glucose [Mass/volume] in Serum or Plasma [2345-7]01/27/2025 09:35 AM229 mg/dLNBlood chemistry[[id number]]?Glucose [Mass/volume] in Serum or Plasma [2345-7]01/27/2025 04:38 PM422 mg/dLNBlood chemistry[[id number]]?Glucose [Mass/volume] in Serum or Plasma [2345-7] 01/27/2025 08:38 AM242 mg/dLNBlood chemistry[[id number]]?Glucose [Mass/volume] in Serum or Plasma [2345-7]01/26/2025 02:11 PM277 mg/dLNBlood chemistry[[id number]]?Glucose [Mass/volume] in Serum or Plasma [2345-7] 01/26/2025 09:26 AM333 mg/dLNBlood chemistry[[id number]]?Glucose [Mass/volume] in Serum or Plasma [2345-7]01/26/2025 04:55 PM398 mg/dLNBlood chemistry[[id number]]?Glucose [Mass/volume] in Serum or Plasma [2345-7] 01/26/2025 09:08 AM272 mg/dLNBlood chemistry[[id number]]?Glucose [Mass/volume] in Serum or Plasma [2345-7]01/25/2025 03:45 PM316 mg/dLNBlood chemistry[[id number]]?Glucose [Mass/volume] in Serum or Plasma [2345-7] 01/25/2025 09:00 AM299 mg/dLNBlood chemistry[[id number]]?Glucose [Mass/volume] in Serum or Plasma [2345-7]01/25/2025 04:22 PM450 mg/dLNBlood chemistry[[id number]]?Glucose [Mass/volume] in Serum or Plasma [2345-7] 01/25/2025 08:35 AM308 mg/dLNBlood chemistry[[id number]]?Glucose [Mass/volume] in Serum or Plasma [2345-7]01/24/2025 01:12 PM450 mg/dLNBlood chemistry[[id number]]?Glucose [Mass/volume] in Serum or Plasma [2345-7] 01/24/2025 09:32 AM416 mg/dLNBlood chemistry[[id number]]?Glucose [Mass/volume] in Serum or Plasma [2345-7]01/24/2025 04:31 PM450 mg/dLNBlood chemistry[[id number]]?Glucose [Mass/volume] in Serum or Plasma [2345-7] 01/24/2025 09:15 AM450 mg/dLNBlood chemistry[[id number]]?Glucose [Mass/volume] in Serum or Plasma [2345-7]01/23/2025 03:49 PM210 mg/dLNBlood chemistry[[id number]]?Glucose [Mass/volume] in Serum or Plasma [2345-7] 01/23/2025 08:55 AM286 mg/dLNXRAY CHEST 2 VIEW[54588077-0]?n/a [86973908-3]01/23/2025 04:55 PMSee noteNXRAY CHEST 2 VIEWBlood chemistry[[id number]]?Glucose [Mass/volume] in Serum or Plasma [2345-7] 01/23/2025 04:00 PM489 mg/dLNBlood chemistry[[id number]]?Glucose [Mass/volume] in Serum or Plasma [2345-7]01/23/2025 08:44 AM285 mg/dLNBlood chemistry[[id number]]?Glucose [Mass/volume] in Serum or Plasma [2345-7] 01/22/2025 02:43 PM325 mg/dLNBlood chemistry[[id number]]?Glucose [Mass/volume] in Serum or Plasma [2345-7]01/22/2025 01:19 PM480 mg/dLN Tuberculosis reaction wheal[95586-6]?Tuberculosis reaction wheal [92232-2]03/29/2024 02:06 PM0 mmNEGTuberculosis reaction wheal[62103-3]?Tuberculosis reaction wheal [17255-3]03/29/2024 02:06 PM See noteTB testINR in Platelet poor plasma by Coagulation assay[6301-6]?INR in Platelet poor plasma by Coagulation assay [6301-6] 03/26/2024 06:45 AM0.9 0NTuberculosis reaction wheal[16954-5]? Tuberculosis reaction wheal [98206-7]03/19/2024 05:00 PM0 mmNEG Allergies, adverse reactions, alerts Substance Reaction Date Status Type atorvastatin 03/19/2024Non Krkronyyykxcsrj10/06/2025Non MypcLabus08/06/2025Non Drug Immunizations Vaccine Route Date Status COVID-19 Vaccine Unassigned Route of Administration Completed COVID-19 Vaccine Unassigned Route of Administration Completed COVID-19 Vaccine Unassigned Route of Administration Completed Pneumococcal Vaccine Unassigned Route of Administratio n 01/18/2024 Completed COVID-19 Vaccine Unassigned Route of Administration Refused COVID-19 Vaccine Unassigned Route of Administration Refused Influenza Vaccine Unassigned Route of Administration 1 Completed COVID-19 Vaccine Unassigned Route of Administration Completed Medications Medication Instructions Route Dosage Frequency Start Date Stop Da te Indications Status acetaminophen 500 mg tablet (acetaminophen) 1000 mg, oral, Once A Day - PRN, PRN Pain oral 1.0 1.0 d 03/19/2024 2019-nCoV acute respiratory diseaseActiveRobitussin Cough-Chest Jaime DM (dextromethorphan-guaifenesin) 10-200 mg capsule (Robitussin Cough-Chest Jaime DM (dextromethorphan-guaifenesin))1 dose, oral, Every 8 Hoursoral1.08.0 h 9-nCoV acute respiratory diseaseActivewarfarin 2 mg tablet (warfarin)2 mg, oral, Once A Day on Tue, Mon, Tue, Janina, Tue, Satoral1.0 1.0 d05003/26/2024Venous insufficiency (chronic) (peripheral)Active warfarin 3 mg tablet (warfarin)3 mg, oral, Once A Day on Tueoral1.01.0 d 5003/26/2024Venous insufficiency (chronic) (peripheral)Activeaspirin 81 mg tablet,chewable (aspirin)81 mg, oral, Once A Dayoral1.01.0 d003/20/2024 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 Activeatorvastatin 40 mg tablet (atorvastatin)40 mg, oral, Once A Dayoral1.01.0 d0therosclerotic heart disease of sun'aq coronary artery without angina pectorisActivecarbidopa-levodopa 25-100 mg tablet (carbidopa-levodopa)1.5 tablets, oral, Once A Dayoral1.01.0 d003/20/2024 03/19/2024Parkinson's disease without dyskinesia, with fluctuationsActive carbidopa-levodopa 25-100 mg tablet (carbidopa-levodopa)1 tablet, oral, Three Times A Dayoral1.08.0 h003/20/2024Parkinsonism, unspecifiedActivecefuroxime axetil 500 mg tablet (cefuroxime axetil)500mg, oral, Twice A Dayoral1.012.0 h 501/[id number] acute respiratory diseaseActivecholecalciferol (vitamin D3) 125 mcg (5,000 unit) capsule (cholecalciferol (vitamin D3))5,000 units, oral, Once A Dayoral1.01.0 d003/20/2024Vitamin D deficiency, unspecified Activecyanocobalamin (vitamin B-12) 1,000 mcg tablet (cyanocobalamin (vitamin B-12))1,000 mcg, oral, Once A Dayoral1.01.0 03/20/2024Muscle weakness (generalized)Activedexamethasone 6 mg tablet (dexamethasone)6 mg, oral, Once A Dayoral1.01.0 d0501/06451393-zKkD acute respiratory diseaseActive diclofenac sodium 1 % gel (diclofenac sodium)2 gram, topical, Twice A Day - PRN, Apply to elbow, wrist and hand, including palm/fingers/back of handtopical1.0 12.0 h003/20/2024Unspecified osteoarthritis, unspecified siteActiveestradiol 0.01 % (0.1 mg/gram) cream (estradiol)50 mcg, vaginal, Once A Day on Tuevaginal1.0 1.0 d05003/20/2024ute vaginitisActivefluocinolone 0.01 % solution (fluocinolone)1 application, topical, Once A Day - PRN, Apply to Scalptopical1.0 1.0 d003/20/2024Seborrheic dermatitis, unspecifiedActiveketoconazole 2 % shampoo (ketoconazole)1 application, topical, Once A Day on Mon, Wed, Tue - PRNtopical 1.01.0 d003/20/2024Seborrheic dermatitis, unspecifiedActivelevothyroxine 75 mcg tablet (levothyroxine)75 mcq, oral, Once A Dayoral1.01.0 d0501/ Unspecified osteoarthritis, unspecified siteActivemetformin 500 mg tablet (metformin)500 mg, oral, Twice A Dayoral1.012.0 h003/20/2024Type 2 diabetes mellitus without complicationsActivemetoprolol tartrate 50 mg tablet (metoprolol tartrate)50 mg, oral, Twice A Dayoral1.012.0 h003/20/2024Essential (primary) hypertensionActiveMiralax (polyethylene glycol 3350) 17 gram/dose powder (Miralax (polyethylene glycol 3350))17 g, oral, Once A Dayoral1..0 d003/20/2024 Gastro-esophageal reflux disease without esophagitisActivemirtazapine 7.5 mg tablet (mirtazapine)7.5 mg, oral, At Bedtimeoral1.Major depressive disorder, recurrent, unspecifiedActiveMounjaro (tirzepatide) 5 mg/0.5 mL pen injector (Mounjaro (tirzepatide))5 mg, subcutaneous, Once A Day on Tue subcutaneous1..0 d05003/30/2024Major depressive disorder, recurrent, unspecifiedActiveomeprazole 20 mg capsule,delayed release(DR/EC) (omeprazole)20 mg, oral, Once A Dayoral1..0 d003/20/2024Gastro-esophageal reflux disease without esophagitisActivePreserVision AREDS-2 (vit c,q-hh-odqkb-lutein-zeaxan) 250-90-40-1 mg capsule (PreserVision AREDS-2 (vit c,e-zl-npdnp-lutein-zeaxan))1 tablet, oral, Twice A Dayoral1.012.0 h003/20/2024Unspecified macular degeneration Activevenlafaxine 75 mg tablet (venlafaxine)75 mg, oral, Once A Dayoral1.01.0 d 03/20/2024Major depressive disorder, recurrent, unspecifiedActivevenlafaxine 150 mg capsule,extended release 24hr (venlafaxine)1 cap, oral, Once A Dayoral1.01.0 d003/20/2024Major depressive disorder, recurrent, unspecifiedActivecefuroxime axetil 500 mg tablet (cefuroxime axetil)500mg, oral, Twice A Dayoral1.012.0 h [id number] acute respiratory diseaseActivedexamethasone 6 mg tablet (dexamethasone)6 mg, oral, Once A Dayoral1.01.0 d05003/20/2024 Benign neoplasm of endocrine gland, unspecifiedActivelidocaine 4 % adhesive patch,medicated (lidocaine)1 patch, topical, Once A Daytopical1.01.0 d003/20/2024 03/20/2024Muscle weakness (generalized)Activevenlafaxine 150 mg tablet extended release 24hr (venlafaxine)150 mg, oral, Once A Dayoral1.01.0 d003/20/2024 03/20/2024Major depressive disorder, recurrent, unspecifiedActivewarfarin 2 mg tablet (warfarin)2 mg, oral, Once A Dayoral1..0 d0Venous insufficiency (chronic) (peripheral)Activeatorvastatin 40 mg tablet (atorvastatin)40 mg, oral, Once A Day, previously taken with no side effectsoral 1.0 d003/27/2024therosclerotic heart disease of sun'aq coronary artery without angina pectorisActiveMounjaro (tirzepatide) 5 mg/0.5 mL pen injector (Mounjaro (tirzepatide))5 mg, subcutaneous, Once A Day on Satsubcutaneous1..0 d0/Type 2 diabetes mellitus without complicationsActive warfarin 2.5 mg tablet (warfarin)1 tablet, oral, At Bedtime, r/t detention anticoag useoral1./5Activelevothyroxine 75 mcg tablet (levothyroxine)75 mcq, oral, Once A Dayoral1.01.0 d004/06/2024Unspecified osteoarthritis, unspecified siteActiveestradiol 0.01 % (0.1 mg/gram) cream (estradiol)50 mcg, vaginal, At Bedtimevaginal1.501/5Acute vaginitisActiveestradiol 0.01 % (0.1 mg/gram) cream (estradiol)50 mcg, vaginal, Once A Day on Frivaginal1.01.0 d0501/5Acute vaginitisActive warfarin 2 mg tablet (warfarin)2 mg, oral, At Bedtime Odd Days, r/t detention anticoagulant useoral1.001502/5Activewarfarin 2.5 mg tablet (warfarin)1 tablet, oral, At Bedtime Even Days, r/t cone machine feeder anticoag useoral 1.502/tivewarfarin 2.5 mg tablet (warfarin)1 tablet, oral, At Bedtime, hx dvtoral1.tivewarfarin 3 mg tablet (warfarin) 1 tablet, oral, At Bedtime, DVT prophylaxisoral1.5005/15/2024tive lidocaine 4 % adhesive patch,medicated (lidocaine)1 patch, topical, Once A Day - PRN, flank paintopical1.01.0 d005/15/2024tivewarfarin 2 mg tablet (warfarin)1 tablet, oral, Once A Dayoral1.01.0 05/15/2024therosclerotic heart disease of sun'aq coronary artery without angina pectorisActivelevofloxacin 500 mg tablet (levofloxacin)1 tab, oral, At Bedtime, UTIoral1.003/503/5Active Mounjaro (tirzepatide) 5 mg/0.5 mL pen injector (Mounjaro (tirzepatide))5 mg, subcutaneous, Once A Day on Sunsubcutaneous1.01.0 d006/02/2024Type 2 diabetes mellitus without complicationsActiveRexulti (brexpiprazole) 0.25 mg tablet (Rexulti (brexpiprazole))0.25, oral, Once A Dayoral1.01.0 d006/25/785093/ Activeaspirin 81 mg tablet,chewable (aspirin)81 mg, oral, Once A Dayoral1.01.0 d 09/30/2024therosclerotic heart disease of sun'aq coronary artery without angina pectorisActivecyclobenzaprine 5 mg tablet (cyclobenzaprine)1 tab, oral, Three Times A Day - PRN, muscle spasmsoral1.08.0 5Activeketoconazole 2 % cream (ketoconazole)1 application, topical, As Needed, apply thin layer to affected areas on face when flared, hold when clear.topical1.01.0 d009/25/2024 Seborrheic dermatitis, unspecifiedActivemirabegron 50 mg tablet extended release 24 hr (mirabegron)50 mg, oral, Once A Dayoral1.01.0 d009/17/2024Urgency of urinationActiveSystane (PF) (peg 400-propylene glycol (pf)) 0.4-0.3 % dropperette (Systane (PF) (peg 400-propyleneglycol (pf)))one drop bilateral, ophthalmic (eye), Four Times A Day1.06.0 10/17/2024Unspecified macular degenerationActivewarfarin 2.5 mg tablet (warfarin)1tablet, oral, At Bedtimeoral 1.008509/Long term (current) use of anticoagulantsActivewarfarin 3 mg tablet (warfarin)3 mg, oral, Once A Dayoral1.01.0 d0/02/2025Long term (current) use of anticoagulantsActivewarfarin 3 mg tablet (warfarin)3.5mg, oral, Once A Day, Give with 0.5 mg tabletoral1.01.0 d0/Long term (current) use of anticoagulantsActivewarfarin 1 mg tablet (warfarin)0.5 mg, oral, Once A Dayoral1.01.0 d0/Long term (current) use of anticoagulantsActivewarfarin 1 mg tablet (warfarin)0.5 mg, oral, Once A Day, give with 3mg to total 3.9ystqgw5.01.0 d0/Long term (current) use of anticoagulantsActivewarfarin 2 mg tablet (warfarin)1 tablet, oral, At Bedtime, give with 0.5mg tab to equal 2.4dssqcz8.// 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 Activewarfarin 1 mg tablet (warfarin)0.5 tablet, oral, At Bedtime, give with 2mg tablet to equal 2.3wlxica5.008/876443/therosclerotic heart disease of sun'aq coronary artery without angina pectorisActivewarfarin 2.5 mg tablet (warfarin)1 tab, oral, At Bedtimeoral1./659873/therosclerotic heart disease of sun'aq coronary artery without angina pectorisActivewarfarin 2 mg tablet (warfarin)1 tablet, oral, At Bedtimeoral1.509/ 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 Activewarfarin 3 mg tablet (warfarin)1.5 mg, oral, At Bedtimeoral 12/18/2024Long term (current) use of anticoagulantsActivewarfarin 2 mg tablet (warfarin)2 mg, oral, Once - One Timeoral1./120132/tiveFluzone High-Dose 2024- (PF) (flu vacc xq4484-97(65yr up)-pf) 180 mcg/0.5 mL syringe (Fluzone High-Dose (PF) (flu vacc qa8253-03(65yr up)-pf))0.5ml, intramuscular, Once - One Timeintramuscular1./tivewarfarin 2 mg tablet (warfarin)1 tablet, oral, At Bedtimeoral1./20240314/07/2024 Venous insufficiency (chronic) (peripheral)ActiveMnexspike 7352-5071 (PF) (covid vac 25-26(12up)(mod)(pf)) 10 mcg/0.2 mL syringe (Mnexspike (PF) (covid vac 25-26(12up)(mod)(pf)))0.2ml, intramuscular, Once - One Time intramuscular1.5ActiveEnemeez (docusate sodium) 283 mg/5 mL enema (Enemeez (docusate sodium))1 enema, rectal, Once A Day - PRN, Step 3: If no BM by morning of day 4, administer 1 Enemeez MicroEnema in the morning. Indication for use: ConstipationStep 4: If no BM within 1 hour of administering Enemeez, contact provider.rectal1.01.0 d1/5ActiveMiralax (polyethylene glycol 3350) 17 gram/dose powder (Miralax (polyethylene glycol 3350))17gm (1 capful), oral, Once A Day - PRN, Step 1: If no BM by Day 2, Mix 17gm (1 capful) in 4-8oz beverage of choice in the morning. Indication for use: Constipationoral1.01.0 d1/5Activemelatonin 5 mg tablet (melatonin)1 tab, oral, At Bedtime, insomniaoral1.5Activewarfarin 2.5 mg tablet (warfarin)1 tablet, oral, At Bedtimeoral1.011Venous insufficiency (chronic) (peripheral)Activeinsulin lispro 100 unit/mL insulin pen (insulin lispro)20 units, subcutaneous, Once - One Timesubcutaneous1.0 Type 2 diabetes mellitus without complicationsActiveinsulin lispro 100 unit/mL solution (insulin lispro)18 units, subcutaneous, Once - One Timesubcutaneous1.Type 2 diabetes mellitus without complicationsActivesodium chloride 0.9 % - parenteral solution (sodium chloride 0.9 %)1 Liter, intravenous, Once - One Time, 75 mL / hourintravenous1.0 tiveondansetron 4 mg tablet,disintegrating (ondansetron)4 mg, oral, Every 8 Hours - PRNoral1.08.0 h103/25/2024NauseaActivelevofloxacin 500 mg tablet (levofloxacin)1 tablet, oral, Once A Dayoral1.01.0 d103/25/2024 02/02/2025Pneumonia, unspecified organismActiveipratropium-albuterol 0.5 mg-3 mg(2.5 mg base)/3 mL solution for nebulization (ipratropium-albuterol)1 vial, inhalation, Four Times A Dayinhalation1.06.0 h15104/04/2024Pneumonia, unspecified organismActiveEnemeez (docusate sodium) 283 mg/5 mL enema (Enemeez (docusate sodium))1 enema, rectal, Once A Day - PRN, Step 3: If no BM by morning of day 4, administer 1 Enemeez MicroEnema in the morning. Indication for use: ConstipationStep 4: If no BM within 1 hour of administering Enemeez, contact provider.rectal1.01.0 d15Activesenna 8.6 mg tablet (senna)1 tablet, oral, Once A Day - PRN, step 1: day 2 no bm administer 1 tabletoral1.01.0 d 5Active Vital Signs Date Vital Result Comment 03/19/2024 11:07 PM Body Height (8302-2) 66 [in_us] 03/19/2024 06:53 PMTemperature (8310-5)98 [degF]Oxygen Saturation (13204-8)97 % Respiratory Rate (9279-1)18 /minHeart Rate (8867-4)80 /minBlood Pressure Systolic (8480-6)142 mm[Hg]Blood Pressure Diastolic (8462-4)80 mm[Hg]03/20/2024 02:12 AMTemperature (8310-5)98.1 [degF]Oxygen Saturation (08894-1)94 % Respiratory Rate (9279-1)18 /minHeart Rate (8867-4)74 /minBlood Pressure Systolic (8480-6)150 mm[Hg]Blood Pressure Diastolic (8462-4)63 mm[Hg]03/20/2024 02:46 PMTemperature (8310-5)98.2 [degF]Oxygen Saturation (33850-8)96 % Respiratory Rate (9279-1)18 /minHeart Rate (8867-4)76 /minBlood Pressure Systolic (8480-6)142 mm[Hg]Blood Pressure Diastolic (8462-4)78 mm[Hg]03/21/2024 07:48 AMTemperature (8310-5)98.4 [degF]Oxygen Saturation (81538-6)96 % Respiratory Rate (9279-1)18 /minHeart Rate (8867-4)74 /minBlood Pressure Systolic (8480-6)168 mm[Hg]Blood Pressure Diastolic (8462-4)82 mm[Hg]03/20/2024 07:42 PMTemperature (8310-5)98.1 [degF]Oxygen Saturation (59092-8)97 % Respiratory Rate (9279-1)18 /minHeart Rate (8867-4)72 /minBlood Pressure Systolic (8480-6)128 mm[Hg]Blood Pressure Diastolic (8462-4)78 mm[Hg]03/21/2024 06:01 AMTemperature (8310-5)98 [degF]Oxygen Saturation (90229-1)95 %Respiratory Rate (9279-1)16 /minHeart Rate (8867-4)67 /minBlood Pressure Systolic (8480-6) 171 mm[Hg]Blood Pressure Diastolic (8462-4)81 mm[Hg]03/20/2024 10:37 PMBody Weight (20775-2)210.6 [lb_av]Body Mass Index (87343-9)33.99 kg/m203/21/2024 04:22 PMTemperature (8310-5)98.3 [degF]Oxygen Saturation (34723-0)96 % Respiratory Rate (9279-1)18 /minHeart Rate (8867-4)70 /minBlood Pressure Systolic (8480-6)144 mm[Hg]Blood Pressure Diastolic (8462-4)68 mm[Hg]03/22/2024 01:29 AMTemperature (8310-5)98.2 [degF]Oxygen Saturation (30314-6)99 % Respiratory Rate (9279-1)16 /minHeart Rate (67-4)71 /minBlood Pressure Systolic (8480-6)174 mm[Hg]Blood Pressure Diastolic (8462-4)79 mm[Hg]03/22/2024 05:08 PMTemperature (8310-5)98.3 [degF]Oxygen Saturation (32749-3)98 % Respiratory Rate (9279-1)18 /minHeart Rate (8867-4)76 /minBlood Pressure Systolic (8480-6)142 mm[Hg]Blood Pressure Diastolic (8462-4)74 mm[Hg]03/22/2024 10:16 AMTemperature (8310-5)99 [degF]Oxygen Saturation (95409-5)98 %Respiratory Rate (9279-1)18 /minHeart Rate (8867-4)74 /minBlood Pressure Systolic (8480-6) 148 mm[Hg]Blood Pressure Diastolic (8462-4)80 mm[Hg]03/23/2024 02:05 AM Temperature (8310-5)98.2 [degF]Oxygen Saturation (67589-0)98 %Respiratory Rate (9279-1)18 /minHeart Rate (8867-4)78 /minBlood Pressure Systolic (8480-6)140 mm[Hg]Blood Pressure Diastolic (8462-4)73 mm[Hg]03/23/2024 04:27 PMTemperature (8310-5)98.7 [degF]Oxygen Saturation (64215-5)96 %Respiratory Rate (9279-1)18 /minHeart Rate (8867-4)82 /minBlood Pressure Systolic (8480-6)140 mm[Hg]Blood Pressure Diastolic (8462-4)76 mm[Hg]03/24/2024 10:34 AMTemperature (8310-5)98 [degF]Oxygen Saturation (14421-0)95 %Respiratory Rate (9279-1)20 /minHeart Rate (8867-4)80 /minBlood Pressure Systolic (8480-6)132 mm[Hg]Blood Pressure Diastolic (8462-4)76 mm[Hg]03/24/2024 05:19 PMTemperature (8310-5)98.2 [degF] Oxygen Saturation (28514-1)96 %Respiratory Rate (9279-1)18 /minHeart Rate (8867-4)78 /minBlood Pressure Systolic (8480-6)128 mm[Hg]Blood Pressure Diastolic (8462-4)73 mm[Hg]03/25/2024 12:03 PMTemperature (8310-5)97.7 [degF] Oxygen Saturation (75978-2)99 %Respiratory Rate (9279-1)18 /minHeart Rate (8867-4)71 /minBlood Pressure Systolic (8480-6)128 mm[Hg]Blood Pressure Diastolic (8462-4)74 mm[Hg]03/25/2024 05:36 PMTemperature (8310-5)98.1 [degF] Oxygen Saturation (43770-7)98 %Respiratory Rate (9279-1)18 /minHeart Rate (8867-4)78 /minBlood Pressure Systolic (8480-6)124 mm[Hg]Blood Pressure Diastolic (8462-4)68 mm[Hg]03/27/2024 01:37 AMTemperature (8310-5)97.8 [degF] Oxygen Saturation (08180-9)97 %Respiratory Rate (9279-1)18 /minHeart Rate (8866-4)63 /minBlood Pressure Systolic (8480-6)147 mm[Hg]Blood Pressure Diastolic (8462-4)78 mm[Hg]03/26/2024 09:44 PMTemperature (8310-5)98.4 [degF] Oxygen Saturation (73717-2)95 %Respiratory Rate (9279-1)16 /minHeart Rate (8866-4)75 /minBlood Pressure Systolic (8480-6)134 mm[Hg]Blood Pressure Diastolic (8462-4)62 mm[Hg]03/26/2024 06:16 PMTemperature (8310-5)97.9 [degF] Oxygen Saturation (33779-6)95 %Respiratory Rate (9279-1)16 /minHeart Rate (8867-4)75 /minBlood Pressure Systolic (8480-6)13 mm[Hg]Blood Pressure Diastolic (8462-4)62 mm[Hg]03/27/2024 08:54 PMBody Weight (56733-7)215.5 [lb_av]Body Mass Index (10909-1)34.78 kg/m203/27/2024 06:41 PMTemperature (8310-5)98.3 [degF] Oxygen Saturation (01310-2)98 %Respiratory Rate (9279-1)16 /minHeart Rate (8867-4)80 /minBlood Pressure Systolic (8480-6)119 mm[Hg]Blood Pressure Diastolic (8462-4)65 mm[Hg]03/28/2024 06:16 AMTemperature (8310-5)98 [degF] Oxygen Saturation (97158-2)96 %Respiratory Rate (9279-1)16 /minHeart Rate (8867-4)70 /minBlood Pressure Systolic (8480-6)138 mm[Hg]Blood Pressure Diastolic (8462-4)70 mm[Hg]03/29/2024 03:07 AMTemperature (8310-5)98.4 [degF] Oxygen Saturation (14257-7)98 %Respiratory Rate (9279-1)18 /minHeart Rate (8867-4)72 /minBlood Pressure Systolic (8480-6)131 mm[Hg]Blood Pressure Diastolic (8462-4)61 mm[Hg]03/28/2024 07:28 PMTemperature (8310-5)98.1 [degF] Oxygen Saturation (53512-4)98 %Respiratory Rate (9279-1)18 /minHeart Rate (8867-4)76 /minBlood Pressure Systolic (8480-6)106 mm[Hg]Blood Pressure Diastolic (8462-4)80 mm[Hg]03/29/2024 10:56 PMTemperature (8310-5)97.9 [degF] Oxygen Saturation (08960-9)98 %Respiratory Rate (9279-1)18 /minHeart Rate (8867-4)75 /minBlood Pressure Systolic (8480-6)125 mm[Hg]Blood Pressure Diastolic (8462-4)65 mm[Hg]03/31/2024 06:12 AMTemperature (8310-5)97.9 [degF] Oxygen Saturation (97318-0)98 %Respiratory Rate (9279-1)16 /minHeart Rate (8867-4)74 /minBlood Pressure Systolic (8480-6)175 mm[Hg]Blood Pressure Diastolic (8462-4)79 mm[Hg]03/31/2024 10:19 PMTemperature (8310-5)97.8 [degF] Oxygen Saturation (27686-3)97 %Respiratory Rate (9279-1)16 /minHeart Rate (8866-4)71 /minBlood Pressure Systolic (8480-6)158 mm[Hg]Blood Pressure Diastolic (8462-4)75 mm[Hg]04/01/2024 09:52 PMTemperature (8310-5)98.1 [degF] Oxygen Saturation (10200-9)96 %Respiratory Rate (9279-1)18 /minHeart Rate (8866-4)75 /minBlood Pressure Systolic (8480-6)140 mm[Hg]Blood Pressure Diastolic (8462-4)71 mm[Hg]04/04/2024 06:07 AMTemperature (8310-5)98.2 [degF] Oxygen Saturation (20083-2)96 %Respiratory Rate (9279-1)16 /minHeart Rate (8866-4)82 /minBlood Pressure Systolic (8480-6)163 mm[Hg]Blood Pressure Diastolic (8462-4)76 mm[Hg]04/04/2024 07:40 PMTemperature (8310-5)98.3 [degF] Oxygen Saturation (02627-9)98 %Respiratory Rate (79-1)18 /minHeart Rate (8866-4)82 /minBlood Pressure Systolic (8480-6)130 mm[Hg]Blood Pressure Diastolic (8462-4)78 mm[Hg]04/05/2024 03:17 AMTemperature (8310-5)98.2 [degF] Oxygen Saturation (55246-9)98 %Respiratory Rate (9279-1)18 /minHeart Rate (8866-4)78 /minBlood Pressure Systolic (8480-6)112 mm[Hg]Blood Pressure Diastolic (8462-4)63 mm[Hg]04/06/2024 03:28 AMTemperature (8310-5)98 [degF] Oxygen Saturation (10812-9)100 %Respiratory Rate (9279-1)18 /minHeart Rate (8867-4)84 /minBlood Pressure Systolic (8480-6)105 mm[Hg]Blood Pressure Diastolic (8462-4)41 mm[Hg]04/05/2024 09:13 PMTemperature (8310-5)98.1 [degF] Oxygen Saturation (09829-9)96 %Respiratory Rate (9279-1)16 /minHeart Rate (8867-4)76 /minBlood Pressure Systolic (8480-6)120 mm[Hg]Blood Pressure Diastolic (8462-4)64 mm[Hg]04/06/2024 02:29 PMTemperature (8310-5)98.4 [degF] Oxygen Saturation (28756-6)98 %Respiratory Rate (9279-1)18 /minHeart Rate (8867-4)76 /minBlood Pressure Systolic (8480-6)114 mm[Hg]Blood Pressure Diastolic (8462-4)62 mm[Hg]04/07/2024 06:47 AMTemperature (8310-5)97.9 [degF] Oxygen Saturation (30488-4)98 %Respiratory Rate (9279-1)18 /minHeart Rate (8867-4)87 /minBlood Pressure Systolic (8480-6)158 mm[Hg]Blood Pressure Diastolic (8462-4)46 mm[Hg]04/08/2024 01:43 AMTemperature (8310-5)98 [degF] Oxygen Saturation (50017-1)94 %Respiratory Rate (9279-1)18 /minHeart Rate (8867-4)84 /minBlood Pressure Systolic (8480-6)121 mm[Hg]Blood Pressure Diastolic (8462-4)67 mm[Hg]04/07/2024 08:48 PMTemperature (8310-5)98 [degF] Respiratory Rate (9279-1)16 /minHeart Rate (8867-4)85 /minBlood Pressure Systolic (8480-6)145 mm[Hg]Blood Pressure Diastolic (8462-4)51 mm[Hg]04/07/2024 08:49 PMOxygen Saturation (35921-7)98 %04/08/2024 06:23 PMTemperature (8310-5)98 [degF]Oxygen Saturation (15199-1)95 %Respiratory Rate (9279-1)18 /minHeart Rate (8867-4)79 /minBlood Pressure Systolic (8480-6)120 mm[Hg]Blood Pressure Diastolic (8462-4)74 mm[Hg]04/09/2024 05:12 PMTemperature (8310-5)97.8 [degF] Oxygen Saturation (34425-4)95 %Respiratory Rate (9279-1)16 /minHeart Rate (8867-4)89 /minBlood Pressure Systolic (8480-6)126 mm[Hg]Blood Pressure Diastolic (8462-4)61 mm[Hg]04/10/2024 05:50 AMTemperature (8310-5)97.9 [degF] Oxygen Saturation (67928-8)96 %Respiratory Rate (9279-1)18 /minHeart Rate (8867-4)68 /minBlood Pressure Systolic (8480-6)124 mm[Hg]Blood Pressure Diastolic (8462-4)65 mm[Hg]04/11/2024 01:42 AMTemperature (8310-5)98.2 [degF] Oxygen Saturation (78861-2)97 %Respiratory Rate (9279-1)20 /minHeart Rate (8867-4)76 /minBlood Pressure Systolic (8480-6)99 mm[Hg]Blood Pressure Diastolic (8462-4)63 mm[Hg]04/10/2024 07:18 PMTemperature (8310-5)97.4 [degF]Oxygen Saturation (15063-9)96 %Respiratory Rate (9279-1)16 /minHeart Rate (8867-4)83 /minBlood Pressure Systolic (8480-6)140 mm[Hg]Blood Pressure Diastolic (8462-4) 63 mm[Hg]04/11/2024 06:28 PMTemperature (8310-5)98 [degF]Oxygen Saturation (95530-8)97 %Respiratory Rate (9279-1)18 /minHeart Rate (8867-4)89 /minBlood Pressure Systolic (8480-6)142 mm[Hg]Blood Pressure Diastolic (8462-4)70 mm[Hg] 04/12/2024 09:38 AMTemperature (8310-5)97.9 [degF]Oxygen Saturation (40610-2)97 %Respiratory Rate (9279-1)16 /minHeart Rate (8867-4)90 /min04/13/2024 02:20 AM Temperature (8310-5)98.2 [degF]Oxygen Saturation (44266-6)93 %Respiratory Rate (9279-1)16 /minHeart Rate (8867-4)86 /minBlood Pressure Systolic (8480-6)125 mm[Hg]Blood Pressure Diastolic (8462-4)64 mm[Hg]04/12/2024 10:55 PMTemperature (8310-5)98 [degF]Oxygen Saturation (29483-9)96 %Respiratory Rate (9279-1)16 /min Heart Rate (8867-4)87 /minBlood Pressure Systolic (8480-6)138 mm[Hg]Blood Pressure Diastolic (8462-4)68 mm[Hg]04/13/2024 07:51 AMTemperature (8310-5)98 [degF]Oxygen Saturation (52674-1)97 %Respiratory Rate (9279-1)18 /minHeart Rate (8867-4)87 /minBlood Pressure Systolic (8480-6)130 mm[Hg]Blood Pressure Diastolic (8462-4)66 mm[Hg]04/14/2024 12:31 AMTemperature (8310-5)98.2 [degF] Oxygen Saturation (97970-7)98 %Respiratory Rate (9279-1)16 /minHeart Rate (8867-4)84 /minBlood Pressure Systolic (8480-6)128 mm[Hg]Blood Pressure Diastolic (8462-4)68 mm[Hg]04/14/2024 01:12 AMTemperature (8310-5)98.1 [degF] Oxygen Saturation (08596-9)98 %Respiratory Rate (9279-1)18 /minHeart Rate (8867-4)90 /minBlood Pressure Systolic (8480-6)166 mm[Hg]Blood Pressure Diastolic (8462-4)69 mm[Hg]04/14/2024 12:30 PMTemperature (8310-5)98 [degF] Oxygen Saturation (98863-6)97 %04/14/2024 12:32 PMRespiratory Rate (9279-1)18 /min04/15/2024 12:19 AMTemperature (8310-5)97.4 [degF]Oxygen Saturation (30484-7)98 %Respiratory Rate (9279-1)18 /minHeart Rate (8867-4)79 /minBlood Pressure Systolic (8480-6)142 mm[Hg]Blood Pressure Diastolic (8462-4)72 mm[Hg] 04/15/2024 06:44 AMBody Weight (59438-8)219.5 [lb_av]Body Mass Index (74437-9) 35.42 kg/m204/14/2024 09:56 PMTemperature (8310-5)98 [degF]Oxygen Saturation (62036-0)99 %Respiratory Rate (9279-1)16 /minHeart Rate (8867-4)88 /minBlood Pressure Systolic (8480-6)120 mm[Hg]Blood Pressure Diastolic (8462-4)66 mm[Hg] 04/14/2024 07:07 PMTemperature (8310-5)98 [degF]Oxygen Saturation (16893-1)99 % Respiratory Rate (9279-1)18 /minHeart Rate (8867-4)88 /minBlood Pressure Systolic (8480-6)120 mm[Hg]Blood Pressure Diastolic (8462-4)56 mm[Hg]04/15/2024 06:29 PMTemperature (8310-5)98.1 [degF]Oxygen Saturation (92290-7)98 % Respiratory Rate (9279-1)18 /minHeart Rate (8867-4)80 /minBlood Pressure Systolic (8480-6)136 mm[Hg]Blood Pressure Diastolic (8462-4)82 mm[Hg]04/16/2024 01:56 AMTemperature (8310-5)97.3 [degF]Oxygen Saturation (13517-2)95 % Respiratory Rate (9279-1)18 /minHeart Rate (8867-4)80 /minBlood Pressure Systolic (8480-6)138 mm[Hg]Blood Pressure Diastolic (8462-4)67 mm[Hg]04/16/2024 11:16 PMTemperature (8310-5)98 [degF]Oxygen Saturation (88789-8)94 %Respiratory Rate (9279-1)16 /minHeart Rate (8867-4)75 /minBlood Pressure Systolic (8480-6) 126 mm[Hg]Blood Pressure Diastolic (8462-4)64 mm[Hg]04/17/2024 09:53 PM Temperature (8310-5)98.2 [degF]Oxygen Saturation (72299-4)95 %Respiratory Rate (9279-1)18 /minHeart Rate (8867-4)74 /minBlood Pressure Systolic (8480-6)124 mm[Hg]Blood Pressure Diastolic (8462-4)67 mm[Hg]04/18/2024 08:17 PMTemperature (8310-5)98.2 [degF]Oxygen Saturation (68287-0)96 %Respiratory Rate (9279-1)18 /minHeart Rate (8867-4)75 /minBlood Pressure Systolic (8480-6)128 mm[Hg]Blood Pressure Diastolic (8462-4)65 mm[Hg]04/19/2024 07:29 PMOxygen Saturation (64675-4)97 %04/19/2024 07:28 PMTemperature (8310-5)98 [degF]Respiratory Rate (9279-1)16 /minHeart Rate (8867-4)77 /minBlood Pressure Systolic (8480-6)121 mm[Hg]Blood Pressure Diastolic (8462-4)61 mm[Hg]04/20/2024 09:25 PMTemperature (8310-5)98.3 [degF]Oxygen Saturation (54697-2)98 %Respiratory Rate (9279-1)18 /minHeart Rate (8867-4)78 /minBlood Pressure Systolic (8480-6)140 mm[Hg]Blood Pressure Diastolic (8462-4)68 mm[Hg]04/21/2024 10:45 PMTemperature (8310-5)98 [degF]Oxygen Saturation (18386-0)98 %Respiratory Rate (9279-1)16 /minHeart Rate (8866-4)75 /minBlood Pressure Systolic (8480-6)134 mm[Hg]Blood Pressure Diastolic (8462-4)64 mm[Hg]04/22/2024 06:55 PMTemperature (8310-5)98.1 [degF] Oxygen Saturation (20033-6)96 %Respiratory Rate (9279-1)16 /minHeart Rate (8866-4)74 /minBlood Pressure Systolic (8480-6)131 mm[Hg]Blood Pressure Diastolic (8462-4)65 mm[Hg]04/23/2024 06:24 PMTemperature (8310-5)97.8 [degF] Oxygen Saturation (15570-5)98 %Respiratory Rate (9279-1)18 /minHeart Rate (8866-4)84 /minBlood Pressure Systolic (8480-6)144 mm[Hg]Blood Pressure Diastolic (8462-4)69 mm[Hg]04/24/2024 05:15 PMTemperature (8310-5)97.3 [degF] Oxygen Saturation (26078-2)97 %Respiratory Rate (9279-1)16 /minHeart Rate (8866-4)73 /minBlood Pressure Systolic (8480-6)155 mm[Hg]Blood Pressure Diastolic (8462-4)80 mm[Hg]04/25/2024 06:00 PMTemperature (8310-5)98 [degF] Oxygen Saturation (04465-9)97 %Respiratory Rate (9279-1)18 /minHeart Rate (8866-4)70 /minBlood Pressure Systolic (8480-6)137 mm[Hg]Blood Pressure Diastolic (8462-4)72 mm[Hg]04/26/2024 06:59 PMTemperature (8310-5)98.1 [degF] Oxygen Saturation (98025-8)96 %Respiratory Rate (9279-1)16 /minHeart Rate (8867-4)83 /minBlood Pressure Systolic (8480-6)137 mm[Hg]Blood Pressure Diastolic (8462-4)66 mm[Hg]04/28/2024 12:42 AMTemperature (8310-5)98.3 [degF] Oxygen Saturation (56284-1)97 %Respiratory Rate (9279-1)16 /minHeart Rate (67-4)86 /minBlood Pressure Systolic (8480-6)126 mm[Hg]Blood Pressure Diastolic (8462-4)64 mm[Hg]04/28/2024 07:07 PMTemperature (8310-5)98 [degF] Oxygen Saturation (38393-5)97 %Respiratory Rate (9279-1)18 /minHeart Rate (8867-4)74 /minBlood Pressure Systolic (8480-6)132 mm[Hg]Blood Pressure Diastolic (8462-4)70 mm[Hg]04/29/2024 06:45 PMTemperature (8310-5)98.4 [degF] Oxygen Saturation (42348-6)97 %Respiratory Rate (9279-1)18 /minHeart Rate (67-4)70 /minBlood Pressure Systolic (8480-6)122 mm[Hg]Blood Pressure Diastolic (8462-4)68 mm[Hg]04/30/2024 10:24 PMTemperature (8310-5)98 [degF] Oxygen Saturation (60154-6)97 %Respiratory Rate (9279-1)18 /minHeart Rate (8867-4)76 /minBlood Pressure Systolic (8480-6)121 mm[Hg]Blood Pressure Diastolic (8462-4)65 mm[Hg]05/01/2024 07:03 PMTemperature (8310-5)98.2 [degF] Oxygen Saturation (61618-1)98 %Respiratory Rate (9279-1)18 /minHeart Rate (8867-4)78 /minBlood Pressure Systolic (8480-6)130 mm[Hg]Blood Pressure Diastolic (8462-4)66 mm[Hg]05/03/2024 05:03 AMTemperature (8310-5)98.2 [degF] Oxygen Saturation (78453-8)96 %Respiratory Rate (9279-1)18 /minHeart Rate (8867-4)60 /minBlood Pressure Systolic (8480-6)114 mm[Hg]Blood Pressure Diastolic (8462-4)64 mm[Hg]05/02/2024 08:00 PMTemperature (8310-5)98.2 [degF] Oxygen Saturation (77469-6)97 %Respiratory Rate (9279-1)18 /minHeart Rate (8867-4)65 /minBlood Pressure Systolic (8480-6)121 mm[Hg]Blood Pressure Diastolic (8462-4)65 mm[Hg]05/03/2024 08:54 PMTemperature (8310-5)98.3 [degF] Oxygen Saturation (20060-1)98 %Respiratory Rate (9279-1)16 /minHeart Rate (8867-4)68 /minBlood Pressure Systolic (8480-6)124 mm[Hg]Blood Pressure Diastolic (8462-4)72 mm[Hg]05/04/2024 05:36 PMTemperature (8310-5)98.1 [degF] Oxygen Saturation (36004-2)96 %Respiratory Rate (9279-1)18 /minHeart Rate (8867-4)71 /minBlood Pressure Systolic (8480-6)138 mm[Hg]Blood Pressure Diastolic (8462-4)78 mm[Hg]05/05/2024 04:04 PMTemperature (8310-5)98.4 [degF] Oxygen Saturation (11406-2)98 %Respiratory Rate (9279-1)16 /minHeart Rate (8867-4)88 /minBlood Pressure Systolic (8480-6)133 mm[Hg]Blood Pressure Diastolic (8462-4)72 mm[Hg]05/06/2024 04:26 PMTemperature (8310-5)98 [degF] Oxygen Saturation (37409-9)97 %Respiratory Rate (9279-1)18 /minHeart Rate (67-4)78 /minBlood Pressure Systolic (8480-6)128 mm[Hg]Blood Pressure Diastolic (8462-4)70 mm[Hg]05/17/2024 11:52 AMBody Weight (85112-4)217 [lb_av] Body Mass Index (54313-6)35.02 kg/m205/19/2024 03:17 AMTemperature (8310-5)97.8 [degF]Oxygen Saturation (49470-0)98 %Respiratory Rate (9279-1)18 /minHeart Rate (8867-4)75 /minBlood Pressure Systolic (8480-6)133 mm[Hg]Blood Pressure Diastolic (8462-4)75 mm[Hg]06/04/2024 02:21 PMTemperature (8310-5)97.9 [degF] Oxygen Saturation (70436-8)99 %Respiratory Rate (9279-1)18 /minHeart Rate (8867-4)89 /minBlood Pressure Systolic (8480-6)118 mm[Hg]Blood Pressure Diastolic (8462-4)64 mm[Hg]06/04/2024 02:18 PMTemperature (8310-5)98 [degF] Oxygen Saturation (24362-4)94 %Respiratory Rate (9279-1)16 /minHeart Rate (8867-4)74 /minBlood Pressure Systolic (8480-6)104 mm[Hg]Blood Pressure Diastolic (8462-4)68 mm[Hg]06/04/2024 10:32 PMTemperature (8310-5)98.2 [degF] Oxygen Saturation (55618-4)98 %Respiratory Rate (9279-1)16 /minHeart Rate (8867-4)86 /minBlood Pressure Systolic (8480-6)124 mm[Hg]Blood Pressure Diastolic (8462-4)74 mm[Hg]06/05/2024 09:05 AMTemperature (8310-5)98.3 [degF] Oxygen Saturation (06575-0)98 %Respiratory Rate (9279-1)16 /minHeart Rate (8867-4)89 /minBlood Pressure Systolic (8480-6)140 mm[Hg]Blood Pressure Diastolic (8462-4)82 mm[Hg]06/06/2024 12:02 AMTemperature (8310-5)97.6 [degF] Oxygen Saturation (44833-6)98 %Respiratory Rate (9279-1)16 /minHeart Rate (8867-4)84 /minBlood Pressure Systolic (8480-6)138 mm[Hg]Blood Pressure Diastolic (8462-4)65 mm[Hg]06/06/2024 08:04 AMTemperature (8310-5)98.3 [degF] Oxygen Saturation (48600-3)95 %Respiratory Rate (9279-1)18 /minHeart Rate (8867-4)99 /minBlood Pressure Systolic (8480-6)154 mm[Hg]Blood Pressure Diastolic (8462-4)77 mm[Hg]06/06/2024 03:29 PMTemperature (8310-5)98.2 [degF] Oxygen Saturation (92156-7)97 %Respiratory Rate (9279-1)16 /minHeart Rate (8866-4)89 /minBlood Pressure Systolic (8480-6)129 mm[Hg]Blood Pressure Diastolic (8462-4)67 mm[Hg]06/07/2024 01:29 AMTemperature (8310-5)98 [degF] Oxygen Saturation (69813-5)99 %Respiratory Rate (9279-1)16 /minHeart Rate (8867-4)80 /minBlood Pressure Systolic (8480-6)100 mm[Hg]Blood Pressure Diastolic (8462-4)48 mm[Hg]06/07/2024 08:03 AMTemperature (8310-5)98.1 [degF] Oxygen Saturation (58322-0)98 %Respiratory Rate (9279-1)16 /minHeart Rate (8867-4)76 /minBlood Pressure Systolic (8480-6)106 mm[Hg]Blood Pressure Diastolic (8462-4)55 mm[Hg]06/08/2024 06:54 AMTemperature (8310-5)98.1 [degF] Oxygen Saturation (67860-6)97 %Respiratory Rate (9279-1)18 /minHeart Rate (8867-4)81 /minBlood Pressure Systolic (8480-6)118 mm[Hg]Blood Pressure Diastolic (8462-4)60 mm[Hg]06/11/2024 08:36 AMTemperature (8310-5)98.4 [degF] Oxygen Saturation (59924-3)98 %Respiratory Rate (9279-1)18 /minHeart Rate (67-4)90 /minBlood Pressure Systolic (8480-6)118 mm[Hg]Blood Pressure Diastolic (8462-4)77 mm[Hg]06/18/2024 06:41 AMBlood Pressure Systolic (8480-6) 147 mm[Hg]Blood Pressure Diastolic (8462-4)74 mm[Hg]06/18/2024 03:50 AM Temperature (8310-5)98.2 [degF]Oxygen Saturation (49293-9)92 %Respiratory Rate (9279-1)16 /minHeart Rate (8866-4)83 /min06/18/2024 09:38 AMTemperature (8310-5) 98.2 [degF]Oxygen Saturation (13096-2)98 %Respiratory Rate (9279-1)18 /minHeart Rate (8866-4)83 /minBlood Pressure Systolic (8480-6)130 mm[Hg]Blood Pressure Diastolic (8462-4)64 mm[Hg]06/18/2024 02:57 PMTemperature (8310-5)98.2 [degF] Oxygen Saturation (79167-3)98 %Respiratory Rate (9279-1)18 /minHeart Rate (8866-4)83 /minBlood Pressure Systolic (8480-6)130 mm[Hg]Blood Pressure Diastolic (8462-4)64 mm[Hg]06/18/2024 11:08 PMTemperature (8310-5)98.4 [degF] Oxygen Saturation (17154-1)98 %Respiratory Rate (9279-1)18 /minHeart Rate (8867-4)78 /minBlood Pressure Systolic (8480-6)126 mm[Hg]Blood Pressure Diastolic (8462-4)70 mm[Hg]06/19/2024 09:41 AMTemperature (8310-5)98.2 [degF] Oxygen Saturation (02880-5)99 %Respiratory Rate (9279-1)18 /minHeart Rate (8867-4)91 /minBlood Pressure Systolic (8480-6)100 mm[Hg]Blood Pressure Diastolic (8462-4)50 mm[Hg]06/20/2024 01:26 AMTemperature (8310-5)98.2 [degF] Oxygen Saturation (39778-5)97 %Respiratory Rate (9279-1)16 /minHeart Rate (67-4)89 /minBlood Pressure Systolic (8480-6)132 mm[Hg]Blood Pressure Diastolic (8462-4)64 mm[Hg]06/19/2024 06:12 PMBody Weight (39035-8)217 [lb_av] Body Mass Index (17986-6)35.02 kg/m206/20/2024 07:44 AMTemperature (8310-5)98.3 [degF]Oxygen Saturation (24910-1)98 %Respiratory Rate (9279-1)18 /minHeart Rate (67-4)90 /minBlood Pressure Systolic (8480-6)114 mm[Hg]Blood Pressure Diastolic (8462-4)55 mm[Hg]06/20/2024 06:03 PMTemperature (8310-5)98.1 [degF] Respiratory Rate (9279-1)20 /minHeart Rate (8867-4)86 /minBlood Pressure Systolic (8480-6)118 mm[Hg]Blood Pressure Diastolic (8462-4)75 mm[Hg]06/21/2024 01:00 AMTemperature (8310-5)97.9 [degF]Oxygen Saturation (81946-0)97 % Respiratory Rate (9279-1)18 /minHeart Rate (8867-4)82 /minBlood Pressure Systolic (8480-6)120 mm[Hg]Blood Pressure Diastolic (8462-4)78 mm[Hg]06/21/2024 11:48 AMTemperature (8310-5)97.8 [degF]Oxygen Saturation (12224-3)97 % Respiratory Rate (9279-1)16 /minHeart Rate (8867-4)80 /minBlood Pressure Systolic (8480-6)130 mm[Hg]Blood Pressure Diastolic (8462-4)74 mm[Hg]06/22/2024 07:46 AMTemperature (8310-5)98 [degF]Oxygen Saturation (65714-7)94 %Respiratory Rate (9279-1)16 /minHeart Rate (8867-4)90 /minBlood Pressure Systolic (8480-6) 117 mm[Hg]Blood Pressure Diastolic (8462-4)67 mm[Hg]11/15/2024 04:48 PM Temperature (8310-5)98.1 [degF]Oxygen Saturation (54666-6)94 %Respiratory Rate (9279-1)16 /minHeart Rate (8867-4)85 /minBlood Pressure Systolic (8480-6)132 mm[Hg]Blood Pressure Diastolic (8462-4)69 mm[Hg]10/13/2024 04:49 PMTemperature (8310-5)98 [degF]Oxygen Saturation (25345-7)96 %Respiratory Rate (9279-1)18 /min Heart Rate (8867-4)84 /minBlood Pressure Systolic (8480-6)136 mm[Hg]Blood Pressure Diastolic (8462-4)76 mm[Hg]09/17/2024 09:32 AMBody Weight (58037-4) 226.5 [lb_av]Body Mass Index (63046-8)36.55 kg/m207/17/2024 12:57 AMTemperature (8310-5)98.1 [degF]Oxygen Saturation (84934-1)99 %Respiratory Rate (9279-1)16 /minHeart Rate (8867-4)80 /minBlood Pressure Systolic (8480-6)144 mm[Hg]Blood Pressure Diastolic (8462-4)64 mm[Hg]10/18/2024 02:19 PMBody Weight (31095-7)233 [lb_av]Body Mass Index (06819-9)37.6 kg/m208/12/2024 06:56 PMTemperature (8310-5)98.3 [degF]Oxygen Saturation (58558-8)100 %Respiratory Rate (9279-1)18 /minHeart Rate (8867-4)87 /minBlood Pressure Systolic (8480-6)152 mm[Hg]Blood Pressure Diastolic (8462-4)76 mm[Hg]09/16/2024 01:22 PMTemperature (8310-5)97.3 [degF]Oxygen Saturation (27933-5)96 %Respiratory Rate (9279-1)18 /minHeart Rate (8867-4)96 /minBlood Pressure Systolic (8480-6)127 mm[Hg]Blood Pressure Diastolic (8462-4)60 mm[Hg]11/19/2024 08:48 AMBody Weight (75637-6)234 [lb_av] Body Mass Index (61118-0)37.76 kg/m212/11/2024 11:34 PMBody Weight (43371-5) 241.5 [lb_av]Body Mass Index (52113-5)38.97 kg/m212/12/2024 01:02 PMTemperature (8310-5)97.4 [degF]12/12/2024 02:38 PMBody Weight (47376-6)241.5 [lb_av]Body Mass Index (14865-3)38.97 kg/m212/12/2024 09:26 PMTemperature (8310-5)98 [degF] 12/13/2024 01:36 AMTemperature (8310-5)98.4 [degF]12/13/2024 08:40 AMTemperature (8310-5)98 [degF]12/13/2024 05:11 PMTemperature (8310-5)97.3 [degF]12/14/2024 12:57 AMTemperature (8310-5)97.7 [degF]12/14/2024 09:25 AMTemperature (8310-5)98 [degF]12/14/2024 04:26 PMTemperature (8310-5)98.2 [degF]12/14/2024 11:28 PM Temperature (8310-5)98.1 [degF]12/15/2024 08:47 AMTemperature (8310-5)97.8 [degF]12/16/2024 03:12 AMTemperature (8310-5)97.6 [degF]12/15/2024 02:52 PM Temperature (8310-5)97.6 [degF]01/07/2025 01:51 PMTemperature (8310-5)97.4 [degF]01/15/2025 02:16 PMBody Weight (93000-3)232 [lb_av]Body Mass Index (73598-8)37.44 kg/m201/18/2025 03:14 PMBody Weight (17420-7)240 [lb_av]Body Mass Index (03288-7)38.73 kg/m201/21/2025 08:14 PMTemperature (8310-5)99.1 [degF] Oxygen Saturation (00280-8)97 %Respiratory Rate (9279-1)18 /minHeart Rate (8867-4)82 /minBlood Pressure Systolic (8480-6)149 mm[Hg]Blood Pressure Diastolic (8462-4)68 mm[Hg]01/22/2025 08:04 AMTemperature (8310-5)98.4 [degF] Oxygen Saturation (31906-4)91 %Respiratory Rate (9279-1)18 /minHeart Rate (8867-4)107 /minBlood Pressure Systolic (8480-6)136 mm[Hg]Blood Pressure Diastolic (8462-4)50 mm[Hg]01/22/2025 11:09 PMTemperature (8310-5)97.9 [degF] Oxygen Saturation (16916-8)94 %Respiratory Rate (9279-1)18 /minHeart Rate (8867-4)98 /minBlood Pressure Systolic (8480-6)141 mm[Hg]Blood Pressure Diastolic (8462-4)67 mm[Hg]01/23/2025 10:20 AMTemperature (8310-5)98.6 [degF] Oxygen Saturation (99183-0)95 %Respiratory Rate (9279-1)16 /minHeart Rate (8867-4)85 /minBlood Pressure Systolic (8480-6)104 mm[Hg]Blood Pressure Diastolic (8462-4)75 mm[Hg]01/23/2025 10:51 PMTemperature (8310-5)98.4 [degF] Oxygen Saturation (12888-9)96 %Respiratory Rate (9279-1)18 /minHeart Rate (8867-4)79 /minBlood Pressure Systolic (8480-6)112 mm[Hg]Blood Pressure Diastolic (8462-4)67 mm[Hg]01/24/2025 12:02 AMTemperature (8310-5)100.5 [degF] Oxygen Saturation (66082-8)92 %Respiratory Rate (9279-1)22 /minHeart Rate (8867-4)118 /minBlood Pressure Systolic (8480-6)118 mm[Hg]Blood Pressure Diastolic (8462-4)62 mm[Hg]01/24/2025 01:27 PMTemperature (8310-5)98.1 [degF] Oxygen Saturation (56125-2)95 %Respiratory Rate (9279-1)16 /minHeart Rate (8867-4)96 /minBlood Pressure Systolic (8480-6)100 mm[Hg]Blood Pressure Diastolic (8462-4)50 mm[Hg]01/24/2025 01:36 PMTemperature (8310-5)98.1 [degF] Oxygen Saturation (06323-4)95 %Respiratory Rate (9279-1)16 /minHeart Rate (8867-4)96 /minBlood Pressure Systolic (8480-6)100 mm[Hg]Blood Pressure Diastolic (8462-4)50 mm[Hg]01/25/2025 12:11 AMTemperature (8310-5)97.8 [degF] Respiratory Rate (9279-1)16 /minHeart Rate (8867-4)98 /minBlood Pressure Systolic (8480-6)105 mm[Hg]Blood Pressure Diastolic (8462-4)73 mm[Hg]01/25/2025 12:12 AMOxygen Saturation (52637-4)95 %01/24/2025 09:03 PMTemperature (8310-5) 97.9 [degF]Oxygen Saturation (33528-7)94 %Respiratory Rate (9279-1)16 /minHeart Rate (8867-4)100 /minBlood Pressure Systolic (8480-6)101 mm[Hg]Blood Pressure Diastolic (8462-4)71 mm[Hg] Social History No smoking Hx information available Encounters Type CPT Code Date Location Provider Indication s encounter report 03/19/2024 12:45 PMVandana Orourke MD02 Advance Directives Directive Description Verification Date Supporting Document(s) Resuscitation
--- OUTSIDE RECORDS SUMMARY | 2025-01-28 02:34 | XMS_ITS | Patient Health Record ---
Author Organization The [facility] in [place] Address [address] [place] [address] Care Team Providers Care Role Player Name Role Phone Honey Rabago DO Primary Care Provider Unavail able Juani Martinez Unavailable [phone] Allergies Allergen (clinical drug ingredient) Drug/Non Drug Allergy documented on EMR Reaction Allergy Type Onset Date Status acetaminophen / hydrocodone HYDROcodone-Acetaminophen conv ulsions Drug Allergy ActivebupropionBupropionhallcinationsDrug AllergyActiveLatexLatexrashAllergy ActiverosuvastatinRosuvastatinUnknownDrug AllergyActive Results Component Value Reference Range Notes LIVER PROFILE Reviewed date:03/18/2024 05:10:29 PM Interpretation: Performing Lab: Notes/Report: [facility] , Bilirubin Total 0.8 0.2-1.0 mg/dL Bilirubin Direct0.20.0-0.2 mg/dLAspartate Amino Akkirapggzd6165-97 U/LAlanine Pelgldbotbkaebdo860-47 U/LAlkaline Miplobzztbb77183-165 U/LTotal Protein7.36.4- 8.2 g/dLAlbumin Level3.03.4-5.0 g/dLGlobulin4.3Albumin Globulin Ratio0.7 Performing Lab:see noteML - [facility] LBT4 Reviewed date:03/18/2024 05:10:29 PM Interpretation: Performing Lab: Notes/Report: [facility] ,T4 Thyroxine8.504.80-13.90 ug/dLPerforming Lab:see noteML - [facility] LBTSH Reviewed date:03/18/2024 05:10:30 PM Interpretation: Performing Lab: Notes/Report: [facility] ,Thyroid Stimulating Hormone0.2770.358-3.740 uIU/mLPerforming Lab:see [facility] LBProthrombin Time INR Reviewed date:03/18/2024 05:10:30 PM Interpretation: Performing Lab: Notes/Report: [facility] ,Prothrombin Time18.49.0-11.6 secINR1.84 2.0-3.0 CONDITIONS NOT LISTED BELOW 2.5-3.5 RECURRENT THROMBOSIS 2.5-3.5 FOR PROSTHETIC HEART VALVE REPLACEMENT DESIRED INR: Performing Lab:see [facility] LBTroponin I High Sensitivity Reviewed date:03/18/2024 05:10:30 PM Interpretation: Performing Lab: Notes/Report: [facility] ,Troponin I High Ygsaxntgudu05.14.0-51.3 pg/mL PERCENTILE OF cTnI DISTRIBUTION IN A REFERENCE POPULATION, NOTE: HIGH-SENSITIVITY TROPONIN ASSAY IS NOT INTENDED TO BE UNIVERSAL DEFINITION OF MYOCARDIAL INFARCTION. THE UPPER WITH OTHER DIAGNOSTIC AND CLINICAL INFORMATION. HAS BEEN CONFIRMED THE DECISION THRESHOLD FOR IN 99TH PERCENTILE = 51.4 PG/ML CUT-OFF POINTS HAVE BEEN ESTABLISHED BASED ON THE FOURTH USED IN ISOLATION BUT SHOULD BE INTERPRETED IN CONJUNCTION REFERENCE LIMIT (URL) OF TROPONIN, DEFINED THE 99TH DIAGNOSIS. Performing Lab:see [facility] LBCT Chest High Resolution Reviewed date:05/07/2024 01:22:04 PM Interpretation: Performing Lab: Notes/Report: CT chest high res Reviewed date:05/08/2024 07:09:10 AM Interpretation: Performing Lab: Notes/Report: Source Facility: [facility]-[address] [place] [address] [place] [address] CT Scan Report Signed Patient: SHAYY BARKER MR#: [id number] : 1940 Acct:[id number] Age/Sex: 83 / F ADM Date: 05/02/24 Loc: CARD Attending Dr: Juani Martinez D.O. Ordering Physician: Juani Martinez D.O. Date of Service: 05/02/24 Procedure(s): CT chest high res Accession Number(s): [id number] cc: HONEY RABAGO [address] [address] Patient Name: SHAYY BARKER MRN: [facility]:[id number] date: 1940 Sex: F Assigned Patient Location: CARD Current Patient Location: Accession/Order Number: [id number] Exam Date: 05/03/2024 10:42 Report Date: 05/03/2024 [...] Carrie Miguel M.D.05/03/2024 10:53 AM Dictation Location: [facility]print [employer] Electronically authenticated by: [id number] Y Date: 05/03/2024 10:53 Dictated By: Carrie Miguel M.D. Signed By: 05/03/24 1238 DD/ 1053 TD/TT: Regional Merchandising Manager:Prothrombin Time INR Reviewed date:03/18/2024 05:10:29 PM Interpretation: Performing Lab: Notes/Report: [facility] ,Prothrombin Time25.49.0-11.6 secINR2.64 2.5-3.5 FOR PROSTHETIC HEART VALVE REPLACEMENT 2.0-3.0 CONDITIONS NOT LISTED BELOW DESIRED INR: 2.5-3.5 RECURRENT THROMBOSIS Performing Lab:see noteML - [facility] LBCBC AUTO DIFF Reviewed date:03/18/2024 05:10:29 PM Interpretation: Performing Lab: Notes/Report: [facility] ,White Blood Count6.74.0-11.0 10 3/uLRed Blood Count4.144.20-5.40 10 6/uL Iacnuvyluf12.512.0-16.0 g/lDRpdxhumcpg50.236.0-48.0 %Mean Corpuscular Yyupjj59.7 81.0-99.0 fLMean Corpuscular Ifxyheznvh29.226.7-34.0 pgMean Corpuscular HGB Conc 31.929.9-35.2 g/dLRed Cell Distribution Width15.511.0-15.0 %Platelet Abcev346 150-450 10 3/uLMean Platelet Ikmwrc57.09.5-13.5 fLNeutrophils Percent Auto73.1 43.0-75.0 %Lymphocytes Percent Auto18.320.5-60.0 %Monocytes Percent Auto8.11.7- 12.0 %Eosinophils Percent Auto0.00.9-7.0 %Basophils Percent Auto0.20.2-2.0 % Immature Granulocytes Pct Auto0.30.0-0.5 %Neutrophils Absolute Auto4.91.4-6.5 10 3/uLLymphocytes Absolute Auto1.21.2-3.8 10 3/uLMonocytes Absolute Auto0.50.3-0.8 10 3/uLEosinophils Absolute Auto0.00.0-0.7 10 3/uLBasophils Absolute Auto0.00.0- 0.1 10 3/uLImmature Granulocytes Abs Auto0.020.00-0.03 10 3/uLPerforming Lab:see noteML - [facility] LBBox Test Reviewed date:03/22/2024 12:47:24 PM Interpretation: Performing Lab: Notes/Report: Urine culture [facility] ,BOX Test Sent OutUrine cultureBOX Test Reference LabFirelandsBOX Test Date Sent 03/16/24BOX Test ResultSEE SCANNED REPORTPerforming Lab:see noteML - [facility] LBUA RANDOM W or MICROSCOPIC Reviewed date:03/18/2024 05:10:30 PM Interpretation: Performing Lab: Notes/Report: [facility] ,Color UrineLT. YELLOWYELLOWClarity UrineCLEARCLEARSpecific [place] Urine1.020 1.005-1.025pH Urine6.05.0-9.0Protein UrineNEGATIVENEG/TRACE mg/dLGlucose Urine UANEGATIVENEGATIVE mg/dLBilirubin UrineNEGATIVENEGATIVEKetones UrineNEGATIVE NEGATIVE mg/dLBlood UrineNEGATIVENEGATIVENitrite UrineNEGATIVENEGATIVE Urobilinogen Urine0.20.2-1.0 EU/dLLeukocyte Esterase UrineNEGATIVENEGATIVEWBC Urine2-5NONE SEEN #/HPFRBC Urine0-20-2 #/HPFBacteria UrineMODERATENONE SEEN #/HPFMucus UrineSMALLNONE SEENSquamous Epithelial Cell UrineMODERATENONE/RARE #/LPFCrystals Seen?None SeenNone Seen #/HPFAmorphous Sediment UrineMODERATECast Seen?SEENNONE SEEN #/LPFHyaline Casts UrineFEWUrine Culture IndicatedYES Performing Lab:see noteML - [facility] LBPROF CHEM 8 (BAS METB) Reviewed date:03/18/2024 05:10:29 PM Interpretation: Performing Lab: Notes/Report: [facility] ,Dvyhai671690-182 mmol/LPotassium3.93.5-5.1 mmol/CLzjslvfy48286-193 mmol/LCarbon Icasecs49.721.0-32.0 mmol/LAnion Gap11.5Solcnln8618-205 mg/dLBlood Urea Nitrogen 10.07.0-18.0 mg/dLCreatinine0.910.55-1.02 mg/dLEstimated GFR ( Trista>60 >=60 mL/min/1.73m 2Estimated GFR (Non- Ame59>=60 mL/min/1.73m 2BUN Creatinine Ratio11.2Pjvvnvm7.98.5-10.1 mg/dLPerforming Lab:see noteML - [facility] LBCBC AUTO DIFF Reviewed date:03/18/2024 05:10:29 PM Interpretation: Performing Lab: Notes/Report: [facility] ,White Blood Count6.44.0-11.0 10 3/uLRed Blood Count4.034.20-5.40 10 6/uL Mqukopflxt91.912.0-16.0 g/mQIhcoczhjrr09.936.0-48.0 %Mean Corpuscular Zknqit96.5 81.0-99.0 fLMean Corpuscular Hglpjhujgz37.526.7-34.0 pgMean Corpuscular HGB Conc 30.629.9-35.2 g/dLRed Cell Distribution Width16.111.0-15.0 %Platelet Escri543 150-450 10 3/uLMean Platelet Rhpvhp87.39.5-13.5 fLNeutrophils Percent Auto67.5 43.0-75.0 %Lymphocytes Percent Auto20.520.5-60.0 %Monocytes Percent Auto11.21.7- 12.0 %Eosinophils Percent Auto0.20.9-7.0 %Basophils Percent Auto0.30.2-2.0 % Immature Granulocytes Pct Auto0.30.0-0.5 %Neutrophils Absolute Auto4.41.4-6.5 10 3/uLLymphocytes Absolute Auto1.31.2-3.8 10 3/uLMonocytes Absolute Auto0.70.3-0.8 10 3/uLEosinophils Absolute Auto0.00.0-0.7 10 3/uLBasophils Absolute Auto0.00.0- 0.1 10 3/uLImmature Granulocytes Abs Auto0.020.00-0.03 10 3/uLPerforming Lab:see noteML - [facility] LBBNP Reviewed date:03/18/2024 05:10:29 PM Interpretation: Performing Lab: Notes/Report: [facility] ,NT Pro B Type Natriuretic Lhje2380.0<=1800.0 pg/mLRESULTS CALLED TO JENNIFER MANNINGerforming Lab:see noteML - [facility] LBRT pulmonary function test Reviewed date:05/08/2024 07:10:04 AM Interpretation: Performing Lab: Notes/Report: Source Facility: [place] [address] [place] [address] Respiratory Report Signed Patient: SHAYY BARKER MR#: [id number] : 1940 Acct:[id number] Age/Sex: 83 / F ADM Date: 05/02/24 Loc: CARD Attending Dr: Juani Martinez D.O. Ordering Physician: Juani Martinez D.O. Date of Service: 05/02/24 Procedure(s): RT pulmonary function test Accession Number(s): [id number] cc: [facility] Test Date: 2024-05-02 Pat Name: SHAYY BARKER Department: Room: - Gender: Female Card Seller: Chery Morrison RRT : 1940 Requested By: Juani Martinez Order Number: [id number] Reading MD: Juani Martinez Interpretive Statements Pulmonary [...] By: Juani Martinez D.O. Signed By: 05/02/24 8444 DD/ 1309 TD/TT: Regional Merchandising Manager: Reason For Referral No Information Medications Medication [...] Administration Date Status Comme nts Flu, Fluad (39477) 65 yrs+, single-dose syringe (3483-2010) Unknown 12/15/2022 Administered Flu, Fluad (58275) 65 yrs + Trivalent (4698-4493)Hrkbawr2001/18/2024dministered Pneumococcal (Prevnar 20)Ohfoerj2701/18/20241538WrdqqowsfydyDJRT-MWQ-4 (COVID 19 Moderna - Booster 0.25mL)Qmcvjnm6901/20/2021dministered Social History Tobacco Use: Social History Observation Description Date Details (start date - stop date) Never Smoker NA - NA Tobacco Control (Standard) Question Answer Notes Tobacco use: Nonsmoker Problems Problem Type SNOMED Code ICD Code Onset Dates Problem Status W/U Status Risk Notes Problem Morbid obesity (disorder) (16426 6002) Morbid (severe) obesity due to excess calories (E66.01) ActiveconfirmedProblemBronchiolectasis (58820432)Bronchiectasis, uncomplicated (J47.9)ActiveconfirmedProblemPulmonary fibrosis (34686774)Pulmonary fibrosis (J84.10)ActiveconfirmedProblemDiabetes mellitus type 2 (disorder) (73505318)DM2 (diabetes mellitus, type 2) (E11.9)ActiveconfirmedProblemParkinson's disease (disorder) (96368703)Parkinson's disease without dyskinesia, without mention of fluctuations [...] Encounter Location Date Provider Diagnosis [facility] [address] [place] [address] 05/08/2024 [facility] Pulmonary fibrosis J84.10 ; Bronchiectasis, uncomplicated J47.9 ; Parkinson's disease without dyskinesia, without mention of fluctuations G20.A1 ; DM2 (diabetes mellitus, type 2) E11.9 and Morbid (severe) obesity due to excess calories E66.01 [facility] [address] [place] [address] 11/05/2024 [facility] Assessments Encounter Date Diagnosis (ICD Code) Assessment [...] Insured Coverage Start Date Coverage End Date [facility] MEDICARE ADV PLAN [address] [address] [place] [id number] Braulio Barker - patient is the insured [...] thrombosis) Z8 6.718 Surgical History Surgery Date(Month/Year) right knee arthroscopy appendectomycholecystectomytonsillectomy and adenoidectomycyst removal-thyroid
--- OUTSIDE RECORDS SUMMARY | 2025-01-28 02:34 | XMS_ITS | Patient Health Record ---
Author Organization [facility] Address [address] [place] [address] [place] [address] Care Team Providers Care Shipwright Helper Name Role Phone Vandana Orourke Primary Care Provider Lan Goss Unavailable [phone] Reason For Referral No Information Encounters Encounter Location Date Provider Diagnosis [facility] [address] [facility] [place] [address] [facility] [place] [address] [place] [address]/Lan Gardner Plan Of Treatment Next Appt Details Provider Name:Lan chavarria, 01/30/2025 01:45:00 PM, [address] [facility] [place], [address] Insurance Providers Payer Name Payer Address Payer Phone Subscriber Number Group Number Insured Name Patient Relationship to Insured Coverage Start Date Coverage End Date [employer] PPO [address] [address] [place], [place] [id number] [phone] [id number] Braulio Barker - patient is the insured
--- OUTSIDE RECORDS SUMMARY | 2025-01-28 02:35 | XMS_ITS | Patient Health Record ---
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
[2025-01-28 03:07] LABS: Anion Gap 10.5; Blood Urea Nitrogen 14.0 mg/dL (7.0-18.0); Calcium 8.4 mg/dL (8.5-10.1); Carbon Dioxide 33.8 mmol/L (21.0-32.0); Chloride 102 mmol/L (98-107); Estimated GFR (African America >60 (>=60 mL/min/1.73m^2); Estimated GFR (Non-African Ame 51 (>=60 mL/min/1.73m^2); Glucose 155 mg/dL (74-106); Potassium 4.3 mmol/L (3.5-5.1); Sodium 142 mmol/L (136-145)
[2025-01-28 03:08] LABS: Prothrombin Time 37.9 sec (9.0-11.6)
[2025-01-28 03:14] LABS: INR 4.11
== END 2025-01-28 02:25 | disposition home or self-care (01) ==
LOC: LAB 02:24
PROVIDERS: PCP Internal Medicine; Visit Provider Family Medicine
DX: Z79.01 Long term (current) use of anticoagulants (principal)
CPT/HCPCS: 36415; 80048; 85610